=== PATIENT | female | born 1950 | race Caucasian/White ===

== ENCOUNTER 2017-06-07 16:31 | Emergency (ER) | payer OTHER, MEDICARE, SELFPAY ==
[2017-06-07 16:32] VITALS: BP 131/57; PULSE 66; RESP 16; TEMP 36.7; O2SAT 98; BMI 56.9
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
--- NOTE | 2017-06-07 16:33 | EKG12_ITS ---
Test Reason : A/A Blood Pressure : / mmHG Vent. Rate : 103 BPM Atrial Rate : 104 BPM P-R Int : 000 ms QRS Dur : 080 ms QT Int : 346 ms P-R-T Axes : 000 041 063 degrees QTc Int : 453 ms Atrial fibrillation Abnormal ECG Confirmed by RANJAN OLIVIA MD ([id number]), editor dictionary RUSS ORTIZ ([id number]) on 06/10/2017 2:47:15 PM Referred By: RSOALIA Confirmed By:RANJAN OLIVIA MD
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
[2017-06-07] MEDS: Ondansetron 4 MG/2 ML Vial IV ×2 (17:23→17:50)
[2017-06-07 17:27] LABS: Absolute Lymphocyte Count 2.86 X10^3/ul (0.83-4.51); Absolute Neutrophil Count 15.5 X10^3/uL (2.0-7.7); Basophil# 0.02 X10^3/uL; Basophil% 0.1 % (0-1); Eosinophil# 0.08 X10^3/uL; Eosinophils% 0.4 % (0-5); Hematocrit 35.4 % (37-47); Hemoglobin 11.3 g/dl (12.0-15.0); Lymphocyte # 2.86 X10^3/ul (4.0); Lymphocyte % 13.6 % (19-41); Mean Corp Hgb Conc 31.9 g/gl (32-36); Mean Corpuscular Hgb 27.2 pg (27.0-32.0); Mean Corpuscular Volume 85.3 fL (81-99); Mean Platelet Vol. 12.2 fl (6.2-12.0); Monocyte# 2.56 X10^3/uL; Monocyte% 12.1 % (0-10); Neutrophil # 15.49 X10^3/uL (2.7-7.7); Neutrophil % 73.4 % (47-70); Platelet Count 226 K/mm3 (150-450); RBC Distribution Width SD 46.6 fl (35.1-43.9); Red Blood Count 4.15 M/mm3 (4.2-5.4); White Blood Count 21.1 K/mm3 (4.4-11.0)
[2017-06-07 17:32] LABS: Prothrombin Time (Protime)PT. 31.7 SECONDS (11.7-14.9)
[2017-06-07 17:33] LABS: Differential Indicated SCAN CRITERIA MET; POSITIVE COUNT NO; POSITIVE DIFFERENTIAL YES; POSITIVE MORPHOLOGY NO; Partial Thromboplast Time 44.2 Seconds (24.1-36.2)
[2017-06-07 17:37] LABS: ALB/GLOB Ratio 0.9 RATIO (0.9-2.4); AST(SGOT) 38 U/L (15-37); Alanine Aminotransfer ALT/SGPT 46 U/L (13-56); Albumin, Serum 3.2 g/dL (3.2-5.0); Alkaline Phosphatase 98 U/L (45-117); Anion Gap 7 (5-15); BUN 16 mg/dL (7-18); BUN/Creat Ratio 16.2 RATIO (10-20); Calcium,Total 8.4 mg/dL (8.5-10.1); Chloride 102 mmol/L (98-107); Creatinine, Serum 0.98 mg/dL (0.55-1.02); EST Glomerular Filtration Rate 60 mL/min (>60); Est Glom Filt Rate - Afr Amer 73 mL/min (>60); Globulin 3.4 g/dL (2.2-4.2); Glucose 176 mg/dL (74-106); Potassium 4.3 mmol/L (3.5-5.1); Protein, Total 6.6 g/dL (6.4-8.2); Sodium Level 139 mmol/L (136-145)
--- NOTE | 2017-06-07 17:45 | ED.RN ---
THIS NURSE CALLED DOWN TO CT TO LOOK AT THE PT. UPON THIS NURSE ARRIVAL, PT SITTING UP, HUYNH COLORING TO FACE AND CHEST, PT C/O FEELING NAUSEATED. BP CYCLING. THIS NURSE SPOKE WITH DR LINDSEY ABOUT THE SAME. ORDER FOR ZOFRAN OBTAINED AND GIVEN IN CT
[2017-06-07 17:50] VITALS: BP 92/55
--- NOTE | 2017-06-07 17:52 | NURSING ---
CALLING [facility] FOR TRANSFER.
[2017-06-07 17:53] LABS: Platelet Estimate ADEQUATE (ADEQ); Red Cell Morphology NORM C+C NORMAL (NORM C&C)
[2017-06-07 18:11] VITALS: BP 99/60; PULSE 121; RESP 20; O2SAT 99
--- NOTE | 2017-06-07 18:11 | NURSING ---
[address] [facility] COMING
[2017-06-07] MEDS: Phytonadione 1 MG/0.5 ML Syringe 10 MG IV (18:21)
[2017-06-08 14:24] LABS: Pathologist Review Reviewed
== END 2017-06-07 18:53 | disposition home or self-care (01) ==
PROVIDERS: Emergency Provider Emergency Medicine; Family Provider Family Medicine; PCP Family Medicine
DX: S20.211A Contusion of right front wall of thorax, initial encounter (principal); S39.91XA Unspecified injury of abdomen, initial encounter; R11.0 Nausea; Z79.01 Long term (current) use of anticoagulants; E66.9 Obesity, unspecified; I48.91 Unspecified atrial fibrillation; V43.52XA Car driver injured in collision with other type car in traffic accident, initial encounter; Y93.I9 Activity, other involving external motion; Y92.410 Unspecified street and highway as the place of occurrence of the external cause; Y99.8 Other external cause status
CPT/HCPCS: 70450; 71045; 72125; 73130; 80053; 85025; 85610; 85730; 86850; 86900; 93005; 96365; 96368; 96375; 96376; 99285; C9132; J7050; A4216; J2405; J3430; J3490

== ENCOUNTER 2022-01-18 21:16 | Inpatient (IN) | payer MEDICARE, MEDICAID, SELFPAY ==
[2022-01-18 21:17] VITALS: BP 158/83; PULSE 131; RESP 22; RESP 24; TEMP 36.6; O2SAT 79; O2SAT 96; BMI 52.4
[2022-01-18 21:29] VITALS: O2SAT 96
--- NOTE | 2022-01-18 21:39 | EKG12_ITS ---
Test Reason : SOB Blood Pressure : / mmHG Vent. Rate : 115 BPM Atrial Rate : 000 BPM P-R Int : 000 ms QRS Dur : 082 ms QT Int : 266 ms P-R-T Axes : 000 068 -23 degrees QTc Int : 367 ms Atrial fibrillation with rapid ventricular response Abnormal QRS-T angle, consider primary T wave abnormality Abnormal ECG Confirmed by CORWIN POLANCO, RANJAN ([id number]), assignment editor KRISSY MORALES ([id number]) on 01/21/2022 11:34:45 AM Referred By: ANUP Confirmed By:RANJAN OLIVIA MD
[2022-01-18 21:43] VITALS: O2SAT 97
[2022-01-18] MEDS: Albuterol 2.5 MG/3 ML VIAL.NEB. INHALATION ×3 (21:58)
[2022-01-18 21:59] VITALS: PULSE 123; RESP 20
[2022-01-18 22:03] LABS: Absolute Lymphocyte Count 1.37 X10^3/uL (0.83-4.51); Absolute Neutrophil Count 9.6 X10^3/uL (2.0-7.7); Basophil# 0.04 X10^3/uL; Basophil% 0.3 % (0-1); Eosinophil# 0.04 X10^3/uL; Eosinophils% 0.3 % (0-5); Hematocrit 45.2 % (37-47); Hemoglobin 14.3 g/dL (12.0-15.0); Lymphocyte # 1.37 X10^3/ul (0.83-4.51); Lymphocyte % 9.7 % (19-41); Mean Corp Hgb Conc 31.6 g/dL (32-36); Mean Corpuscular Hgb 27.8 pg (27.0-32.0); Mean Corpuscular Volume 87.8 fL (81-99); Mean Platelet Vol. 12.6 fl (6.2-12.0); Monocyte# 3.02 X10^3/uL; Monocyte% 21.4 % (0-10); NRBC Flagged by Analyzer 0 % (0-5); Neutrophil # 9.57 X10^3/uL (2.7-7.7); Neutrophil % 67.6 % (47-70); POSITIVE DIFFERENTIAL YES; Platelet Count 154 K/mm3 (150-450); RBC Distribution Width CV 14.4 % (11.6-14.6); RBC Distribution Width SD 46.1 fl (35.1-43.9); Red Blood Count 5.15 M/mm3 (4.2-5.4); White Blood Count 14.1 K/mm3 (4.4-11.0)
[2022-01-18 22:05] LABS: Differential Indicated SCAN CRITERIA MET
[2022-01-18 22:20] LABS: AST(SGOT) 12 U/L (15-37); Alanine Aminotransfer ALT/SGPT 23 U/L (13-56); Albumin, Serum 4.3 g/dL (3.2-5.0); Alkaline Phosphatase 88 U/L (45-117); Anion Gap 9 (5-15); BUN 21 mg/dL (7-18); BUN/Creat Ratio 21.3 RATIO (10-20); Calcium,Total 9.9 mg/dL (8.5-10.1); Chloride 100 mmol/L (98-107); Creatinine, Serum 0.99 mg/dL (0.55-1.02); EST Glomerular Filtration Rate 59 mL/min (>60); Est Glom Filt Rate - Afr Amer 71 mL/min (>60); Estimated Creatinine Clearance 98.44 ml/min; Globulin 4.1 g/dL (2.2-4.2); Glucose 172 mg/dL (74-106); Potassium 4.3 mmol/L (3.5-5.1); Protein, Total 8.4 g/dL (6.4-8.2); Sodium Level 140 mmol/L (136-145)
[2022-01-18 22:26] LABS: Allen Test Positive; Base Excess 5 mmol/L (-2 to +2); Bicarbonate 31.1 mmol/L (22-26); Blood Gas Specimen Type ART; O2 Delivery Device Cannula; PO2 59 mmHG (75-100); SITE R Radial; SO2 87 % (95-99); Total Carbon Dioxide 33 mmol/L; pCO2 58.6 mmHg (35-45); pH 7.33 (7.35-7.45)
[2022-01-18 22:26] LABS: Lactic Acid 1.5 mmol/L (0.4-1.9)
[2022-01-18 22:28] LABS: Differential Comment SCANNED
--- NOTE | 2022-01-18 22:54 | EDS_ITS ---
HPI HPI - URI History of Present Illness Chief Complaint: Shortness of Breath Detail of Chief Complaint: Shortness of breath, productive cough, wheezing Informant: patient Onset/Context/Timing Onset: Today Context: Sudden Onset Timing: Continuous Quality: Congestion, rhinorrhea, productive cough, wheezing and dyspnea Location: Upper respiratory Current Severity: Moderate Maximum Severity: Severe Worsened by: Not Worsened By Swallowing, Eating Solids or Drinking Liquids Relieved by: Not Relieved By Tylenol or NSAIDs Associated Symptoms Associated Symptoms: Positive for Nasal Congestion, Shortness of Breath and Productive Cough; Negative for Headache, Sinus Pressure, Myalgias, Nausea, Vomiting, Diarrhea, Chest Pain, Nonproductive cough or Hemoptysis Narrative Narrative: Patient is a 71-year-old woman with history of atrial fibrillation, chronic congestive heart failure, obstructive sleep apnea, hypertension, dyslipidemia and bilateral lymphedema who presents with upper respiratory symptoms started today. She was seen at her doctor yesterday and had flu vaccine and shingles vaccine. She states she was not ill when she was vaccinated. There have been family members have been ill. She denies headache. She denies visual, ocular auditory symptoms. She denies neck pain or stiffness. She denies chest disco mfort. She denies history of PE or DVT. She is on long-term anticoagulant, Eliquis for atrial fibrillation. She denies abdominal pain. She denies nausea, vomiting diarrhea. She denies melena or hematochezia. She does endorse increased shortness of breath with walking. She is not normally on oxygen. Prior similar symptoms: No Recent Illness/Hospitalization: No ROS ROS ED Constitutional Constitutional ED: Denies chills, fever(s), subjective, sweats or weight loss Eyes Eyes: Denies blurry vision, change in vision or diplopia ENT ENT ED: Reports rhinorrhea; Denies ear pain or sore throat Cardiovascular Cardiovascular: Denies chest pain, orthopnea, palpitations or paroxysmal nocturn al dyspnea Respiratory/Chest Respiratory/Chest: Reports cough, dyspnea, dyspnea on exertion and sputum; Denies orthopnea or paroxysmal nocturnal dyspnea Gastrointestinal Gastrointestinal: Denies abdominal pain, constipation, diarrhea, melena, nausea or vomiting Genitourinary Genitourinary ED: Denies dysuria, hematuria or urinary frequency Musculoskeletal Musculoskeletal: Denies arthralgias, back pain, myalgias or neck pain Integumentary Denies abscess, Abrasions or rash Neurologic Neurologic: Denies headache(s), paresthesias or weakness Endocrine Endocrinology: Denies cold intolerance, heat intolerance or polydipsia Hematologic/Lymphatic Hematologic/Lymphatic: Denies easy bleeding, easy bruising or lymphadenopathy PFSH PFSH Medical History no medical history no medical history (Documented in the HPI narrative) Home Medications furosemide 40 mg tablet 40 mg PO BID 10/27/13 [History Last Taken 07/14/16] sertraline 50 mg tablet 25 mg PO QHS 10/27/13 [History Last Taken 07/13/16] digoxin 125 mcg (0.125 mg) tablet (Digox) 125 mcg PO DAILY 01/24/16 [History Last Taken 07/14/16] lisinopril 10 mg tablet 20 mg PO DAILY 01/24/16 [History Last Taken 07/14/16] metoprolol tartrate 50 mg tablet 100 mg PO BID 01/24/16 [History Last Taken 07/14/16] potassium chloride 20 mEq tablet,extended release(part/cryst) (Klor-Con M) 20 meq PO DAILY 01/24/16 [History Last Taken 07/14/16] Beclomethasone Diprop Inhaler [Qvar 80 Mcg Inhaler] 2 puff IH BID 07/14/16 [History Last Taken 07/13/16] atorvastatin 10 mg tablet 10 mg PO QHS 07/14/16 [History Last Taken 07/13/16] apixaban 5 mg tablet (Eliquis) 5 mg PO BID 01/18/22 [History Last Taken Unknown] Allergy/AdvReac Type Severity Reaction Status Date / Time Tetanus Vaccines and Toxoid Allergy Unknown Verified 06/07/17 16:42 [Tetanus Vaccines & Toxoid] Social History (Updated 01/18/22 @ 22:[address] David Plasencia MD) household members: none Smoking Status: Never smoker substance use type: does not use EXAM Physical Exam Const Vital Signs: 01/18/22 21:17 01/18/22 21:17 01/18/22 21:29 Temperature 97.8 F 97.8 F Temperature Source Oral Temporal Pulse Rate 131 H 131 H Respiratory Rate 24 H 22 H Respiratory Effort Short of Breath Respiratory Depth Shallow Respiratory Pattern Tachypnea Blood Pressure 158/83 H 158/83 H Blood Pressure Mean 108 108 Pulse Ox 79 96 Oxygen Delivery Method Room Air Nasal Cannula Nasal Cannula Oxygen Flow Rate (L/min) 3 2 01/18/22 21:43 01/18/22 21:59 Temperature Temperature Source Pulse Rate 123 H Respiratory Rate 20 H Respiratory Effort Respiratory Depth Respiratory Pattern Tachypnea Blood Pressure Blood Pressure Mean Pulse Ox 97 Oxygen Delivery Method Nasal Cannula Oxygen Flow Rate (L/min) 2 Positive well nourished, well developed and obese Constitutional Narrative: Patient has conversational dyspnea. General Appearance ED: well developed; Negative for cyanotic, diaphoretic, NAD or pallor Nutritional Appearance: obese HEENT Reports moist mucous membranes normocephalic Face and Sinus: Negative for sinus tenderness or maxillary instability Throat: posterior oropharynx normal Eyes PERRL and EOMs intact bilaterally General Eye ED: Negative for pale conjunctiva or scleral icterus Neck no lymphadenopathy, supple, no meningeal signs and no JVD Neck Narrative: Trachea is midline. There is no in expiratory stridor. Resp No normal respiratory effort and No clear to auscultation bilaterally Resp Narrative: Patient has prolonged expiratory phase. Auscultation: wheezes expiratory wheezes and throughout Cardio S1 normal heart sound, S2 normal heart sound and no murmurs Rate: tachycardic GI non-tender, non-distended and no masses Auscultation: normoactive bowel sounds Palpation: soft Back/Spine no CVA tenderness and normal ROM Extremity Negative for normal to inspection Extremity Narrative: There is mild edema of the lower extremities. There is evidence of venous stasis dermatitis this. General Extremety ED: Negative for cyanosis General Extremity: Negative for cyanosis Neuro oriented x3, CN's II-XII intact bilaterally and no sensory deficits noted Sensorium / Orientation: alert Psych mental status grossly normal Skin General Skin Exam: Negative for jaundice or pallor Lesions: no lesions MDM MDM MDM Narrative Medical decision making narrative: She presents with infectious respiratory symptoms. Pulse ox upon arrival was 79% on room air. She is presently 97% on oxygen. Concern patient has pneumonia versus bronchitis with bronchospasm. Work-up was undertaken to evaluate for sepsis. EKG was obtained since she was hypoxic to rule out cardiac ischemia. Since patient was wheezing she was treated with albuterol. Lab Data Attestation: I reviewed the patient's lab results. Lab results narrative: White count is elevated 14.1 thousand with out a shift. Comprehensive metabolic panel is remarkable for slight elevation of BUN and glucose of 21 and 172 respectively. Lactate ABG was obtained. Respiratory therapist concerned this may represent a arterial and venous mixture. pH is 7.33. PCO2 is 58.6. PO2 is 58.8 with a saturation of 87%, which does not correlate with the pulse ox. The pulse ox has a good waveform. Suspect this is a mixed gas. Patient's pH is acceptable. She probably has chronic CO2 retention. There is no evidence of acute CO2 retention. Labs: Laboratory Results - last 24 hr 01/18/22 01/18/22 01/18/22 21:55 21:55 21:55 WBC 14.1 H RBC 5.15 Hgb 14.3 Hct 45.2 MCV 87.8 MCH 27.8 MCHC 31.6 L RDW Std Deviation 46.1 H RDW Coeff of Giles 14.4 Plt Count 154 MPV 12.6 H Immature Gran % (Auto) 0.700 Neut % (Auto) 67.6 Lymph % (Auto) 9.7 L Smyth % (Auto) 21.4 H Eos % (Auto) 0.3 Baso % (Auto) 0.3 Absolute Neuts (auto) 9.6 H Absolute Lymphs (auto) 1.37 Nucleated RBC % 0 Differential Comment SCANNED Diff Path Review May foll Sodium 140 Potassium 4.3 Chloride 100 Carbon Dioxide 31.0 Anion Gap 9 BUN 21 H Creatinine 0.99 Estim Creat Clear Calc 98.44 Est GFR (MDRD) Af Amer 71 Est GFR (MDRD) Non-Af 59 L BUN/Creatinine Ratio 21.3 H Glucose 172 H Lactic Acid 1.5 Calcium 9.9 Total Bilirubin 1.10 H AST 12 L ALT 23 Alkaline Phosphatase 88 Total Protein 8.4 H Albumin 4.3 Globulin 4.1 Albumin/Globulin Ratio 1.0 ABG Data ABG results: ABG 01/18/22 22:15 Specimen Type ART Sample Site R Radial pH 7.33 L Bicarbonate Actual 31.1 H Total CO2 33 Base Excess 5 H O2 Saturation 87 L ABG pCO2 58.6 H ABG pO2 59 L Lito Test Positive O2 Delivery Device Cannula Liter Flow 3.0 EKG Initial EKG: Attestation: I personally reviewed and interpreted this EKG as follows: Interpretation: Atrial Fibrillation (Ventricular rate is 115. QS duration 82 ms. QT durations 266 ms. [employer] is normal. There is artifact noted. There is no acute ischemia noted.) Discharge Plan Triage Chief Complaint: Shortness of Breath ED Provider: David Plasencia Dx/Rx/DC Orders Prescriptions: No Action furosemide 40 MG tablet 40 mg PO BID Label Comments: Water pill sertraline 50 MG tablet 25 mg PO QHS Label Comments: Anti-depressant/anxiety potassium chloride [Klor-Con M20] 20 MEQ tablet 20 meq PO DAILY Label Comments: SUPPLEMENT lisinopril 10 MG tablet 20 mg PO DAILY Label Comments: BLOOD PRESSURE/HEART digoxin [Digox] 125 MCG tablet 125 mcg PO DAILY Label Comments: HEART metoprolol tartrate 50 MG tablet 100 mg PO BID Label Comments: Heart rate/blood pressure atorvastatin 10 MG tablet 10 mg PO QHS Label Comments: CHOLESTEROL Beclomethasone Diprop Inhaler [Qvar 80 Mcg Inhaler] 1 PUFF inhaler 2 puff IH BID Label Comments: BREATHING Eliquis 5 mg tablet 5 mg PO BID Primary Care Provider: Kory Ibarra Referrals: Kory Ibarra DO [Primary Care Provider] -
--- NOTE | 2022-01-18 23:10 | RAD_ITS ---
STUDY: X-RAY CHEST REASON FOR EXAM: Female, 71 years old. Productive cough TECHNIQUE: AP portable. 11:04 PM. COMPARISON: 06/07/2017. FINDINGS: LUNGS: No consolidation. No pneumothorax. MEDIASTINUM: Unremarkable. CARDIAC SILHOUETTE: Enlarged. Stable size. BONES AND SOFT TISSUES: No acute abnormalities. RAD/Chest 1 View (Portable) IMPRESSION: Stable cardiomegaly. No infiltrates. Electronically Signed: Isis Mcdonald MD at 23:24 EST ,
[2022-01-18 23:31] VITALS: BP 139/64; PULSE 114; RESP 22; TEMP 36.6; O2SAT 96
[2022-01-18] MEDS: MethylPREDNISolone 125 MG/2 ML Vial 60 MG IV (23:32)
--- NOTE | 2022-01-18 23:33 | HP.PCM.HOS_ITS ---
HPI - General General Date of Admission: 01/18/22 Date of Service: 01/18/22 Chief Complaint: Shortness of breath HPI Narrative GUNNER BAKER, is a 71 F who presented to the emergency department [facility] on 01/18/2022 complaining of shortness of breath. She states she was really feeling fine yesterday she got her shingles and flu vaccine but this morning she started to feel poorly. She has trouble describing how she fe lt but it sounds like she had just generalized weakness and fatigue. She began coughing and developing some shortness of breath. Her daughter is a NICU nurse here in [place] and recommended she come to the emergency department for further evaluation. Evidently, her family has been ill with respiratory illnesses over the past couple weeks and she had been doing well up until today. She has no k nown history of COPD or tobacco abuse however she has long history of secondhand smoke exposure in her parents and her . She reports small amount of nasal congestion but denies any headache, nausea and vomiting, constipation diarrhea, or tingling numbness/weakness. She states she is coughing intermittently and producing some sputum. She indicates she has chronic atrial fibrillation but when she gets ill she tends to have rapid rates as she is having at this time. She states typically she is well rate controlled with her current medication regimen. Vitals on presentation demonstrated a temperature of 97.8, heart rate 131, blood pressure 158/83, respiratory rate anywhere from 20-24, and initial oxygen saturations were 79% on room air. Sats improved to 96 to 97% on 2 L nasal katherin paramjit. CBC showed a leukocytosis with a white count of 14.1 however her differential is predominantly monocytes at 21.4%. An ABG was performed however it appears to be a mixed gas. Her chemistry panel was overall unremarkable other than hyperglycemia with a blood glucose level of 172. Chest x-ray is unremarkable for any acute findings. EKG shows A. fib with RVR, intervals are normal, no ST-T wave changes consistent with acute ischemia. In the emergency department she was treated with steroids and recommendation for admission was made. [facility] Medical History Anticoagulant long-term use Asthma Congestive heart failure (CHF) Depression Dyslipidemia HTN (hypertension) Morbid obesity with body mass index of 50.0-59.9 in adult Obstructive sleep apnea Paroxysmal atrial fibrillation Medical History no medical history Home Medications furosemide 40 mg tablet 40 mg PO BID 10/27/13 [History Last Taken 07/14/16] sertraline 50 mg tablet 25 mg PO QHS 10/27/13 [History Last Taken 07/13/16] digoxin 125 mcg (0.125 mg) tablet (Digox) 125 mcg PO DAILY 01/24/16 [History Last Taken 07/14/16] lisinopril 10 mg tablet 20 mg PO DAILY 01/24/16 [History Last Taken 07/14/16] metoprolol tartrate 50 mg tablet 100 mg PO BID 01/24/16 [History Last Taken 07/14/16] potassium chloride 20 mEq tablet,extended release(part/cryst) (Klor-Con M) 20 meq PO DAILY 01/24/16 [History Last Taken 07/14/16] Beclomethasone Diprop Inhaler [Qvar 80 Mcg Inhaler] 2 puff IH BID 07/14/16 [History Last Taken 07/13/16] atorvastatin 10 mg tablet 10 mg PO QHS 07/14/16 [History Last Taken 07/13/16] apixaban 5 mg tablet (Eliquis) 5 mg PO BID 01/18/22 [History Last Taken Unknown] Allergy/AdvReac Type Severity Reaction Status Date / Time Tetanus Vaccines and Toxoid Allergy Unknown Verified 06/07/17 16:42 [Tetanus Vaccines & Toxoid] Family History no significant family his no significant family history Surgical History H/O oophorectomy History of appendectomy Social History (Updated 01/18/22 @ 23:[address] Jemima Poe DO) household members: none Smoking Status: Never smoker alcohol intake: never substance use type: does not use ROS Constitutional Constitutional: Reports fatigue, malaise and weakness; Denies anorexia, change in weight, chills, fever(s), night sweats or other Eyes Eyes: Denies blurry vision, change in eye color, change in vision, discharge from eye(s), double vision, erythema, eye pain, loss of vision or other ENT HEENT: Reports nasal congestion and nasal discharge; Denies abnormal hearing, dysphagia, ear pain, epistaxis, headache(s), hearing loss, post nasal drip, sinus pressure, sore throat or other Cardiovascular Cardiovascular: Reports dyspnea on exertion and rapid heart rate; Denies chest pain, claudication, edema, lightheadedness, orthopnea, palpitations, paroxysmal nocturnal dyspnea, syncope or other Respiratory/Chest Respiratory/Chest: Reports cough, dyspnea, productive cough, shortness of breath at rest and shortness of breath with exertion; Denies excessive phlegm production, hemoptysis, wheezing or other Gastrointestinal Gastrointestinal: Denies abdominal pain, coffee ground emesis, constipation, diarrhea, dyspepsia, hematemesis, hematochezia, loose stools, melena, nausea, vomiting or other Genitourinary Genitourinary: Denies burning urination, difficulty urinating, dysuria, hematuria, nocturia, urinary frequency, urinary hesitancy, urinary incontinence, urinary urgency or other Musculoskeletal Musculoskeletal: Denies arthralgias, back pain, joint pain, joint stiffness, joint swelling, myalgias, neck pain or other Neurologic Neurologic: Denies abnormal gait, abnormal speech, confusion, disequilibrium, dizziness, focal weakness, headache(s), numbness, paresthesias, seizure-like activity, seizures, syncope, tingling, tremor(s) or other Psychiatric Psychiatric: Reports depression Endocrine Endocrinology: Denies change in body appearance, cold intolerance, excessive sweating, heat intolerance, polydipsia, polyuria or other Hematologic/Lymphatic Hematologic/Lymphatic: Denies anemia, easy bleeding, easy bruising, lymphadenopathy or other Allergic/Immunologic Allergic/Immunologic: Denies rhinitis, hives, eczemia, asthma or other Vital Signs Vital Signs Vital Signs: 01/18/22 21:17 01/18/22 21:17 01/18/22 21:29 Temperature 97.8 F 97.8 F Temperature Source Oral Temporal Pulse Rate 131 H 131 H Respiratory Rate 24 H 22 H Respiratory Effort Short of Breath Respiratory Depth Shallow Respiratory Pattern Tachypnea Blood Pressure 158/83 H 158/83 H Blood Pressure Mean 108 108 Pulse Ox 79 96 Oxygen Delivery Method Room Air Nasal Cannula Nasal Cannula Oxygen Flow Rate (L/min) 3 2 01/18/22 21:43 01/18/22 21:59 01/18/22 23:31 Temperature 97.9 F Temperature Source Temporal Pulse Rate 123 H 114 H Respiratory Rate 20 H 22 H Respiratory Effort Respiratory Depth Respiratory Pattern Tachypnea Blood Pressure 139/64 H Blood Pressure Mean 89 Pulse Ox 97 96 Oxygen Delivery Method Nasal Cannula Nasal Cannula Oxygen Flow Rate (L/min) 2 2 Weight Weight: 117.934 kg Body Mass Index (BMI) 52.4 Physical Exam Const alert and oriented x3 Constitutional Narrative: Older morbidly obese white female sitting up on the edge of the bed, appears comfortable but ill she does not appear to be toxic, daughter at bedside General Appearance: cooperative HEENT normocephalic, head/scalp atraumatic, hearing grossly normal bilaterally and moist oral mucous membranes HEENT Narrative: Dentition is poor, Mallampati is 3, no thrush Eyes PERRL, EOMs intact bilaterally and conjunctivae normal Eyes Narrative: No scleral icterus Neck no lymphadenopathy and supple Neck Narrative: Trachea midline Resp no retractions and no use of accessory muscles Resp Narrative: Used end expiratory wheezes, slight tachypnea, no signs of respiratory extremis Auscultation: wheezes Cardio S1 normal heart sound, S2 normal heart sound, no murmurs, no rub, no gallops and no clicks; Negative for regular rate or regular rhythm Cardio Narrative: Tachycardia with irregularly irregular rhythm GI normal to inspection, nondistended, normoactive bowel sounds, soft to palpation and non-tender Extremity Extremity Narrative: Trace bilateral lower extremity edema, no cyanosis or clubbing Skin no rashes or lesions noted, no wounds, skin turgor normal, no jaundice, no petechiae and no mottling Skin Narrative: Toenails with onychomycosis Neuro oriented x3, CN's II-XII intact bilaterally, moves all extremities and no focal motor deficits Neuro Narrative: No sensory deficits Speech: speech normal Psych affect normal Psych Narrative: Very pleasant Results Lab / Micro Data Result Diagrams: 01/18/22 21:55 01/18/22 21:55 Labs: Laboratory Results - last 24 hr 01/18/22 21:55: WBC 14.1 H, RBC 5.15, Hgb 14.3, Hct 45.2, MCV 87.8, MCH 27.8, MCHC 31.6 L, RDW Std Deviation 46.1 H, RDW Coeff of Giles 14.4, Plt Count 154, MPV 12.6 H, Immature Gran % (Auto) 0.700, Neut % (Auto) 67.6, Lymph % (Auto) 9.7 L, [place] % (Auto) 21.4 H, Eos % (Auto) 0.3, Baso % (Auto) 0.3, Absolute Neuts (auto) 9.6 H, Absolute Lymphs (auto) 1.37, Nucleated RBC % 0, Differential Comment SCANNED, Diff Path Review July foll 01/18/22 21:55: Sodium 140, Potassium 4.3, Chloride 100, Carbon Dioxide 31.0, Anion Gap 9, BUN 21 H, Creatinine 0.99, Estim Creat Clear Calc 98.44, Est GFR (MDRD) Af Amer 71, Est GFR (MDRD) Non-Af 59 L, BUN/Creatinine Ratio 21.3 H, Glucose 172 H, Calcium 9.9, Total Bilirubin 1.10 H, AST 12 L, ALT 23, Alkaline Phosphatase 88, Total Protein 8.4 H, Albumin 4.3, Globulin 4.1, Albumin/Globulin Ratio 1.0 01/18/22 21:55: Lactic Acid 1.5 Micro: Microbiology 01/18/22 21:46 Nasal Secretion SARS-CoV-2 & FLU Antigen (Rapid) - Final ABG Data ABG results: ABG 01/18/22 22:15 Specimen Type ART Sample Site R Radial pH 7.33 L Bicarbonate Actual 31.1 H Total CO2 33 Base Excess 5 H O2 Saturation 87 L ABG pCO2 58.6 H ABG pO2 59 L Lito Test Positive O2 Delivery Device Cannula Liter Flow 3.0 Radiology Impression Chest X-Ray 01/18/22 23:10 IMPRESSION: Stable cardiomegaly. No infiltrates. Electronically Signed: Isis Mcdonald MD at 23:24 EST , Assessment & Plan Assessment/Plan (1) Acute hyperglycemia: (2) Acute bronchospasm: (3) Acute respiratory failure with hypoxia: (4) Atrial fibrillation with RVR: PLAN: Plan Acute hypoxic respiratory failure secondary to suspected viral pneumonia -Patient with tachypnea, tachycardia, hypoxia on room air requiring 3 L, and wheezing with significant subjective shortness of breath -COVID and flu antigens are negative -Patient every 9% on room air at presentation and now satting at 95 to 96% on 2 L supplemental oxygen -Respiratory viral panel is pending -Start Solu-Medrol 40 every 8 -Aggressive pulmonary toilet with scheduled DuoNebs and as needed albuterol -I-S -Acapella -Guaifenesin 1200 twice daily -Highly suspect this is viral as patient has a significant monocytosis with regards to her leukocytosis and sick exposure to family members last week -Patient with long history of secondhand smoke exposure in both of her parents and her --> no personal tobacco abuse Chronic A. fib with current RVR -Patient states she has persistent atrial fibrillation and is typically well managed with digoxin, metoprolol -Continue apixaban -Likely in RVR secondary to respiratory distress -We will monitor on telemetry -Heart rate seems to be improving and was in the low 100s at the time of my evaluation Hyperglycemia -Patient without diagnosis of diabetes -Blood sugar on presentation was 179 -May be stress response -We will check hemoglobin A1c -[facility] -Acc[facility] Hypertension -Continue home lisinopril -Continue home metoprolol -Continue home Lasix Hyperlipidemia -Continue home atorvastatin CHRISTIANNE -Continue home CPAP will utilize 8 cm of water as patient is unclear what she typically is on at home -We will try to clarify Morbid obesity -Recommend weight loss -BMI is 52.5 -Complicates treatment, prognosis, outcomes DVT prophylaxis -Continue home apixaban CODE STATUS -Full code as per discussion with the family and the patient in the emergency department prior to admission Charges/Coding Visit Charges Inpatient E&M: 28405 Init Hosp L3
[2022-01-19] VITALS (21 sets, daily range): BP systolic 129–172; BP diastolic 64–94; PULSE 80–155; RESP 18–28; TEMP 36.1–37.2; O2SAT 94–96; BMI 51.2
[2022-01-19 00:15] LABS: Hemoglobin A1c 5.9 % (3.8-5.6)
[2022-01-19] MEDS: Albuterol 2.5 MG/3 ML VIAL.NEB. INHALATION (00:32)
--- NOTE | 2022-01-19 00:35 | CPS ---
[0032] Pt. states that she uses CPAP at home. I asked her if she'd like for us to provide her with CPAP with our equipment, but she politely refused. She stated that she's fine with wearing oxygen while she sleeps tonight. I informed pt. that it would be a good idea if she was able to have someone bring in her home unit for tomorrow night.
[2022-01-19 01:11] LABS: Bedside Glucose 171 mg/dL (74-106)
[2022-01-19] MEDS: Benzonatate 100 MG Capsule 200 MG PO ×3 (02:35→16:31)
[2022-01-19] MEDS: Insulin Lispro 100 UNIT/ML INSULN.PEN SC ×3 (06:31→16:25)
[2022-01-19 07:15] LABS: Bedside Glucose 189 mg/dL (74-106)
[2022-01-19] MEDS: Ipratropium/Albuterol Sulfate 3 ML AMPUL.NEB INHALATION ×5 (07:24→22:30)
[2022-01-19 07:35] LABS: Absolute Lymphocyte Count 0.71 X10^3/uL (0.83-4.51); Absolute Neutrophil Count 9.9 X10^3/uL (2.0-7.7); Basophil# 0.01 X10^3/uL; Basophil% 0.1 % (0-1); Hematocrit 43.2 % (37-47); Hemoglobin 13.4 g/dL (12.0-15.0); Lymphocyte # 0.71 X10^3/ul (0.83-4.51); Lymphocyte % 6.3 % (19-41); Mean Corpuscular Hgb 27.5 pg (27.0-32.0); Mean Corpuscular Volume 88.5 fL (81-99); Mean Platelet Vol. 12.5 fl (6.2-12.0); Monocyte# 0.39 X10^3/uL; Monocyte% 3.5 % (0-10); NRBC Flagged by Analyzer 0 % (0-5); Neutrophil # 9.86 X10^3/uL (2.7-7.7); Platelet Count 144 K/mm3 (150-450); RBC Distribution Width CV 14.4 % (11.6-14.6); RBC Distribution Width SD 46.9 fl (35.1-43.9); Red Blood Count 4.88 M/mm3 (4.2-5.4); White Blood Count 11.2 K/mm3 (4.4-11.0)
[2022-01-19 08:09] LABS: Anion Gap 4 (5-15); BUN 21 mg/dL (7-18); BUN/Creat Ratio 23.8 RATIO (10-20); Calcium,Total 10.2 mg/dL (8.5-10.1); Chloride 102 mmol/L (98-107); Creatinine, Serum 0.88 mg/dL (0.55-1.02); EST Glomerular Filtration Rate 67 mL/min (>60); Est Glom Filt Rate - Afr Amer 81 mL/min (>60); Estimated Creatinine Clearance 109.87 ml/min; Glucose 192 mg/dL (74-106); Magnesium 2.5 mg/dL (1.6-2.6); Phosphorus 3.2 mg/dL (2.5-4.9); Potassium 4.5 mmol/L (3.5-5.1); Sodium Level 138 mmol/L (136-145); Thyroid Stim Hormone (TSH) 0.74 uIU/mL (0.358-3.74)
[2022-01-19] MEDS: guaiFENesin 1,200 MG Tablet 1200 MG PO ×2 (08:52→20:53)
[2022-01-19] MEDS: Furosemide 40 MG Tablet PO ×2 (08:53→20:53)
[2022-01-19] MEDS: Lisinopril 20 MG Tablet PO (08:53)
[2022-01-19] MEDS: Potassium Chloride Oral Tablet 20 MEQ PO (08:53)
[2022-01-19] MEDS: Digoxin 125 MCG Tablet PO (08:53)
[2022-01-19] MEDS: APIXABAN 5 MG TABLET PO ×2 (08:53→20:53)
[2022-01-19] MEDS: Metoprolol Tartrate 100 MG Tablet PO ×2 (08:53→19:40)
--- NOTE | 2022-01-19 10:20 | CASEMGMT ---
RN SOLEDAD Face to Face with patient for initial transition planning/care coordination assessment. RN CM introduced self and role at [facility]. Patient lying in bed, alert and oriented. Patient willing to participate in assessment and is able to answer all questions appropriately. Care providers, pharmacy, and demographics verified. Patient wishes to discharge home, denies need for home health at this time. Patient states she has no further needs or concerns at this time. CM to follow for discharge planning needs that may arise. 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 Insurance: [employer] Prescription Benefit: yes Living Will/HPOA: yes, daughter Rhiannon Young LNOK: daughter who is a nurse Living Arrangements: Patient lives with daughter in a single story home with 1 step and grab bar to enter the home. Patient states she is independent at home. Transportation: daughter DME/HHC: Patient has shower chair, grab bars, raised toilet, cpap, and pulse ox at home. Patient states that cpap is through [facility] who is her preferred DME, patient declines list of other DME agencies at this time. Will monitor for need for home oxygen at discharge. Disposition Plan: Patient to discharge home with family support and follow-up plans in place. Kami KRISHNA, RN, CM
[2022-01-19 11:25] LABS: Bedside Glucose 248 mg/dL (74-106)
[2022-01-19 12:38] LABS: Pathologist Review Reviewed
--- NOTE | 2022-01-19 12:56 | PN.HOSP_ITS ---
Subjective Subjective Patient seen and examined. He still feels short of breath. She says her family had bronchitis which is likely due to RSV. She is still wheezing. Review of systems otherwise negative. Objective Data Objective Data Vital Signs: Vital Signs Temp Pulse Resp BP Pulse Ox O2 Del Method O2 Flow Rate 97.2 F L 107 H 24 H 155/91 H 96 Room Air 2 01/19/22 10:57 01/19/22 11:37 01/19/22 11:37 01/19/22 10:57 01/19/22 10:57 01/19/22 10:57 01/19/22 08:42 Oxygen Flow Rate (L/min) 2 Oxygen Delivery Method Room Air Weight: 257 lb 15.053 oz Body Mass Index (BMI) 51.2 Intake & Output: Intake and Output for Last 24 Hours 01/18/22 01/18/22 01/19/22 00:59 23:59 23:59 Intake Total 300 / 300 Balance 300 / 300 Lab / Micro Data Result Diagrams: 01/19/22 07:12 01/19/22 07:12 Labs: Laboratory Results - last 24 hr 01/18/22 21:55: WBC 14.1 H, RBC 5.15, Hgb 14.3, Hct 45.2, MCV 87.8, MCH 27.8, MCHC 31.6 L, RDW Std Deviation 46.1 H, RDW Coeff of Giles 14.4, Plt Count 154, MPV 12.6 H, Immature Gran % (Auto) 0.700, Neut % (Auto) 67.6, Lymph % (Auto) 9.7 L, [place] % (Auto) 21.4 H, Eos % (Auto) 0.3, Baso % (Auto) 0.3, Absolute Neuts (auto) 9.6 H, Absolute Lymphs (auto) 1.37, Nucleated RBC % 0, Differential Comment SCANNED, Diff Path Review Reviewed 01/18/22 21:55: Sodium 140, Potassium 4.3, Chloride 100, Carbon Dioxide 31.0, Anion Gap 9, BUN 21 H, Creatinine 0.99, Estim Creat Clear Calc 98.44, Est GFR (MDRD) Af Amer 71, Est GFR (MDRD) Non-Af 59 L, BUN/Creatinine Ratio 21.3 H, Glucose 172 H, Calcium 9.9, Total Bilirubin 1.10 H, AST 12 L, ALT 23, Alkaline Phosphatase 88, Total Protein 8.4 H, Albumin 4.3, Globulin 4.1, Albumin/Globulin Ratio 1.0 01/18/22 21:55: Lactic Acid 1.5 01/18/22 21:55: Hemoglobin A1c 5.9 H 01/19/22 00:50: POC Glucose 171 H 01/19/22 06:11: POC Glucose 189 H 01/19/22 07:12: WBC 11.2 H, RBC 4.88, Hgb 13.4, Hct 43.2, MCV 88.5, MCH 27.5, MCHC 31.0 L, RDW Std Deviation 46.9 H, RDW Coeff of Giles 14.4, Plt Count 144 L, MPV 12.5 H, Immature Gran % (Auto) 2.100 H, Neut % (Auto) 88.0 H, Lymph % (Auto) 6.3 L, [place] % (Auto) 3.5, Eos % (Auto) 0.0, Baso % (Auto) 0.1, Absolute Neuts (auto) 9.9 H, Absolute Lymphs (auto) 0.71 L, Nucleated RBC % 0 01/19/22 07:12: Sodium 138, Potassium 4.5, Chloride 102, Carbon Dioxide 32.0, Anion Gap 4 L, BUN 21 H, Creatinine 0.88, Estim Creat Clear Calc 109.87, Est GFR (MDRD) Af Amer 81, Est GFR (MDRD) Non-Af 67, BUN/Creatinine Ratio 23.8 H, Glucose 192 H, Calcium 10.2 H, Phosphorus 3.2, Magnesium 2.5, TSH 0.74 01/19/22 10:59: POC Glucose 248 H Micro: Microbiology 01/19/22 07:45 Urine, Clean Catch Streptococcus pneumoniae Antigen (M - Final 01/19/22 07:45 Urine, Clean Catch Legionella Antigen - Final 01/18/22 21:46 Nasal Secretion SARS-CoV-2 & FLU Antigen (Rapid) - Final ABG Data ABG results: ABG 01/18/22 22:15 Specimen Type ART Sample Site R Radial pH 7.33 L Bicarbonate Actual 31.1 H Total CO2 33 Base Excess 5 H O2 Saturation 87 L ABG pCO2 58.6 H ABG pO2 59 L Lito Test Positive O2 Delivery Device Cannula Liter Flow 3.0 Radiography Diagnostic Testing: Radiology Impression Chest X-Ray 01/18/22 23:10 IMPRESSION: Stable cardiomegaly. No infiltrates. Electronically Signed: Isis Mcdonald MD at 23:24 EST , Physical Exam Const alert, oriented x3 and no apparent distress Constitutional Narrative: obese HEENT head/scalp atraumatic, moist oral mucous membranes and oropharynx normal Head and Scalp: normocephalic Mouth: oral and palatal mucosa normal Eyes PERRL, EOMs intact bilaterally and conjunctivae normal Neck no lymphadenopathy Resp Resp Narrative: diminished breath sounds bibasally, mild wheezing, no crackles. On 2L of oxygen by nasal canula Cardio regular rate, regular rhythm, S1 normal heart sound, S2 normal heart sound and no murmurs GI normal to inspection, nondistended, normoactive bowel sounds, soft to palpation, non-tender and non-distended Extremity normal to inspection, full ROM and no clubbing, cyanosis or edema Neuro CN's II-XII intact bilaterally and moves all extremities Sensorium / Orientation: awake and alert Motor Exam: strength 5/5 throughout Psych affect normal Assessment & Plan Assessment/Plan (1) Atrial fibrillation with RVR: (2) Acute respiratory failure with hypoxia: PLAN: Plan #HYpoxia due to URTI * on 2L of oxygen. Still wheezing. Titrate oxygen to maintain sats >90% * on IV solumedrol * breathing treatment with bronchodilators. * respiratory panel pending * #Afib with RVR * on digoxin and metoprolol. * HR not very well controlled. stop albuterol and continue duonebs IH * #Hypertension: on lisinopril and metoprolol. #Hyperlipidemia: on statin #CHRISTIANNE: on CPAP qhs #Morbid obesity: BMI is 52.5. counseled on weight loss and DASh diet as well as physical exercise DVT prophylaxis; on eliquis Charges/Coding Visit Charges Inpatient E&M: 65565 Subs Hosp L2
[2022-01-19] MEDS: 0.9% Saline Lock 10 ML Syringe IV ×3 (13:28→20:57)
--- NOTE | 2022-01-19 16:38 | CHAPLAIN ---
Type of Pastoral Visit _x__ Initial Visit ___ Follow-up Visit ___ On-call Visit ___ General Patient Visit ___ Spiritual Assessment ___ Family Conference ___ Bereavement ___ Rapid Response ___ Code Blue ___ Other (describe below) Pastoral Care Referral From _x__ Patient ___ Family ___ Nurse ___ Physician ___ Travel Ot ___ Valet Manager ___ Other (describe below) Sacrament/Intervention _x__ Active listening ___ Anointing ___ Synagogue ___ Bereavement ___ Communion ___ Kylie exploration ___ ___ Life review ___ Prayer ___ Reconciliation ___ Sacrament of Sick ___ Supportive presence ___ Wedding ___ Other (describe below) Pastoral Comments patient is sitting in chair and talking with a visitor/friend; pt says that she is doing better and that she is going to be okay; pt talks about friendship;
[2022-01-19 17:11] LABS: Bedside Glucose 185 mg/dL (74-106)
[2022-01-19] MEDS: Sertraline 50 MG Tablet 25 MG PO (20:52)
[2022-01-19] MEDS: Atorvastatin Calcium 10 MG Tablet PO (20:53)
[2022-01-20] VITALS (20 sets, daily range): BP systolic 100–156; BP diastolic 53–135; PULSE 96–148; RESP 16–20; TEMP 36.4–37; O2SAT 92–98
[2022-01-20 00:11] LABS: Bedside Glucose 153 mg/dL (74-106)
[2022-01-20] MEDS: 0.9% Saline Lock 10 ML Syringe IV ×2 (05:30→14:05)
[2022-01-20] MEDS: Insulin Lispro 100 UNIT/ML INSULN.PEN SC ×3 (06:59→16:34)
[2022-01-20 07:24] LABS: Hematocrit 42.6 % (37-47); Hemoglobin 13.4 g/dL (12.0-15.0); Lymphocyte % 4.3 % (19-41); Mean Corp Hgb Conc 31.5 g/dL (32-36); Mean Corpuscular Hgb 28.2 pg (27.0-32.0); Mean Corpuscular Volume 89.7 fL (81-99); Mean Platelet Vol. 12.4 fl (6.2-12.0); Neutrophil % 81.2 % (47-70); POSITIVE DIFFERENTIAL YES; Platelet Count 155 K/mm3 (150-450); RBC Distribution Width CV 14.5 % (11.6-14.6); RBC Distribution Width SD 47.6 fl (35.1-43.9); Red Blood Count 4.75 M/mm3 (4.2-5.4); White Blood Count 17.4 K/mm3 (4.4-11.0)
[2022-01-20 07:25] LABS: Absolute Lymphocyte Count 0.75 X10^3/uL (0.83-4.51); Absolute Neutrophil Count 14.1 X10^3/uL (2.0-7.7); Basophil# 0.03 X10^3/uL; Basophil% 0.2 % (0-1); Lymphocyte # 0.75 X10^3/ul (0.83-4.51); Monocyte# 2.22 X10^3/uL; Monocyte% 12.8 % (0-10); NRBC Flagged by Analyzer 0 % (0-5); Neutrophil # 14.14 X10^3/uL (2.7-7.7)
[2022-01-20] MEDS: Ipratropium/Albuterol Sulfate 3 ML AMPUL.NEB INHALATION ×5 (07:26→22:57)
[2022-01-20 07:40] LABS: Bedside Glucose 199 mg/dL (74-106)
[2022-01-20 07:51] LABS: Anion Gap 3 (5-15); BUN 27 mg/dL (7-18); BUN/Creat Ratio 31.2 RATIO (10-20); Calcium,Total 9.8 mg/dL (8.5-10.1); Chloride 101 mmol/L (98-107); Creatinine, Serum 0.86 mg/dL (0.55-1.02); EST Glomerular Filtration Rate 69 mL/min (>60); Est Glom Filt Rate - Afr Amer 83 mL/min (>60); Estimated Creatinine Clearance 112.81 ml/min; Glucose 199 mg/dL (74-106); Potassium 4.1 mmol/L (3.5-5.1); Sodium Level 137 mmol/L (136-145)
[2022-01-20 08:18] LABS: Differential Indicated SCAN CRITERIA MET
[2022-01-20 08:54] LABS: Differential Comment SCANNED
[2022-01-20] MEDS: Potassium Chloride Oral Tablet 20 MEQ PO (09:47)
[2022-01-20] MEDS: Lisinopril 20 MG Tablet PO (09:47)
[2022-01-20] MEDS: Metoprolol Tartrate 100 MG Tablet PO ×2 (09:47→21:01)
[2022-01-20] MEDS: Digoxin 125 MCG Tablet PO (09:47)
[2022-01-20] MEDS: Furosemide 40 MG Tablet PO ×2 (09:47→21:01)
[2022-01-20] MEDS: APIXABAN 5 MG TABLET PO ×2 (09:47→21:03)
[2022-01-20] MEDS: guaiFENesin 1,200 MG Tablet 1200 MG PO ×2 (09:48→21:01)
--- NOTE | 2022-01-20 10:20 | PN.HOSP_ITS ---
Subjective Subjective Patient seen and examined. She feels better and has no active complaints today. Her breathing is getting better though she is still coughing. Review of systems is otherwise negative. She has remained hemodynamically stable. Objective Data Objective Data Vital Signs: Vital Signs Temp Pulse Resp BP Pulse Ox O2 Del Method O2 Flow Rate 98.1 F 98 18 122/56 H 96 Nasal Cannula 2 01/20/22 09:38 01/20/22 09:47 01/20/22 09:38 01/20/22 09:38 01/20/22 09:38 01/20/22 09:44 01/20/22 09:44 Oxygen Flow Rate (L/min) 2 Oxygen Delivery Method Nasal Cannula Weight: 258 lb 13.163 oz Body Mass Index (BMI) 51.2 Intake & Output: Intake and Output for Last 24 Hours 01/18/22 01/19/22 01/20/22 23:59 23:59 23:59 Intake Total 1100 / 1100 Output Total 800 / 800 Balance 300 / 300 Lab / Micro Data Result Diagrams: 01/20/22 06:45 01/20/22 06:45 Labs: Laboratory Results - last 24 hr 01/18/22 21:55: Diff Path Review Reviewed 01/19/22 10:59: POC Glucose 248 H 01/19/22 16:23: POC Glucose 185 H 01/19/22 20:51: POC Glucose 153 H 01/20/22 06:45: WBC 17.4 H, RBC 4.75, Hgb 13.4, Hct 42.6, MCV 89.7, MCH 28.2, MCHC 31.5 L, RDW Std Deviation 47.6 H, RDW Coeff of Giles 14.5, Plt Count 155, MPV 12.4 H, Immature Gran % (Auto) 1.500 H, Neut % (Auto) 81.2 H, Lymph % (Auto) 4.3 L, [place] % (Auto) 12.8 H, Eos % (Auto) 0.0, Baso % (Auto) 0.2, Absolute Neuts (auto) 14.1 H, Absolute Lymphs (auto) 0.75 L, Nucleated RBC % 0, Differential Comment SCANNED, Diff Path Review July01/20/22 06:45: Sodium 137, Potassium 4.1, Chloride 101, Carbon Dioxide 33.0 H, Anion Gap 3 L, BUN 27 H, Creatinine 0.86, Estim Creat Clear Calc 112.81, Est GFR (MDRD) Af Amer 83, Est GFR (MDRD) Non-Af 69, BUN/Creatinine Ratio 31.2 H, Glucose 199 H, Calcium 9.8 01/20/22 06:58: POC Glucose 199 H Micro: Microbiology 01/19/22 07:45 Urine, Clean Catch Streptococcus pneumoniae Antigen (M - Final 01/19/22 07:45 Urine, Clean Catch Legionella Antigen - Final 01/18/22 21:46 Nasal Secretion SARS-CoV-2 & FLU Antigen (Rapid) - Final Physical Exam Const alert, oriented x3 and no apparent distress Constitutional Narrative: obese General Appearance: cooperative HEENT normocephalic, head/scalp atraumatic, hearing grossly normal bilaterally, moist oral mucous membranes and oropharynx normal Head and Scalp: normocephalic Mouth: oral and palatal mucosa normal Eyes PERRL, EOMs intact bilaterally and conjunctivae normal Eyes Narrative: No scleral icterus Neck no lymphadenopathy and supple Neck Narrative: Trachea midline Resp no retractions and no use of accessory muscles Resp Narrative: diminished breath sounds bibasally, mild wheezing, no crackles. On 2L of oxygen by nasal canula Auscultation: wheezes Cardio regular rate, regular rhythm, S1 normal heart sound, S2 normal heart sound, no murmurs, no rub, no gallops and no clicks Cardio Narrative: heart rate now 98. GI normal to inspection, nondistended, normoactive bowel sounds, soft to palpation, non-tender and non-distended Extremity normal to inspection, full ROM and no clubbing, cyanosis or edema Skin no rashes or lesions noted, no wounds, skin turgor normal, no jaundice, no petechiae and no mottling Neuro oriented x3, CN's II-XII intact bilaterally, moves all extremities and no focal motor deficits Neuro Narrative: No sensory deficits Sensorium / Orientation: awake and alert Speech: speech normal Motor Exam: strength 5/5 throughout Psych affect normal Psych Narrative: Very pleasant Assessment & Plan Assessment/Plan (1) Atrial fibrillation with RVR: (2) Acute respiratory failure with hypoxia: PLAN: Plan #HYpoxia due to URTI * on 2L of oxygen. wheezing has improved. Titrate oxygen to maintain sats >90% * on IV solumedrol * breathing treatment with bronchodilators. * respiratory panel pending * #Afib with RVR * on digoxin and metoprolol. * heart rate now controlled. Continue digoxin and metoprolol. Will monitor. * on eliquis * #Hypertension: on lisinopril and metoprolol. #Hyperlipidemia: on statin #CHRISTIANNE: on CPAP qhs #Morbid obesity: BMI is 52.5. counseled on weight loss and DASh diet as well as physical exercise DVT prophylaxis; on eliquis Charges/Coding Visit Charges Inpatient E&M: 32831 Subs Hosp L2
[2022-01-20 12:40] LABS: Bedside Glucose 248 mg/dL (74-106)
[2022-01-20 13:41] LABS: Pathologist Review Reviewed
--- NOTE | 2022-01-20 14:30 | CASEMGMT ---
This RN CM to room to discuss d/c plan. Pt states no concerns with going home and has been independent in room. Pt states no need for any further therapy at discharge. Pt has cpap thru [facility] and would like home oxygen thru same. CM to follow for home oxygen need and any further discharge planning/needs. . S[place]en BELLA CM
--- NOTE | 2022-01-20 19:12 | NURSING ---
Charting reviewed with Yamileth Burch RN
[2022-01-20 19:26] LABS: Bedside Glucose 194 mg/dL (74-106)
[2022-01-20] MEDS: Sertraline 50 MG Tablet 25 MG PO (21:01)
[2022-01-20] MEDS: Atorvastatin Calcium 10 MG Tablet PO (21:01)
[2022-01-20] MEDS: Acetaminophen 325 MG Tablet 650 MG PO (23:00)
[2022-01-20] MEDS: BENZOCAINE/MENTHOL 1 LOZENGE MUCOUS MEM (23:01)
[2022-01-21] VITALS (21 sets, daily range): BP systolic 117–156; BP diastolic 54–103; PULSE 79–157; RESP 16–22; TEMP 36.1–36.7; O2SAT 84–97
[2022-01-21] MEDS: 0.9% Saline Lock 10 ML Syringe IV (05:12)
[2022-01-21 05:25] LABS: Absolute Neutrophil Count 12.5 X10^3/uL (2.0-7.7); Basophil# 0.03 X10^3/uL; Basophil% 0.2 % (0-1); Hematocrit 41.5 % (37-47); Hemoglobin 13.2 g/dL (12.0-15.0); Lymphocyte % 5.8 % (19-41); Mean Corp Hgb Conc 31.8 g/dL (32-36); Mean Corpuscular Hgb 27.9 pg (27.0-32.0); Mean Corpuscular Volume 87.7 fL (81-99); Mean Platelet Vol. 12.7 fl (6.2-12.0); Monocyte# 1.93 X10^3/uL; Monocyte% 12.4 % (0-10); NRBC Flagged by Analyzer 0 % (0-5); POSITIVE DIFFERENTIAL YES; Platelet Count 151 K/mm3 (150-450); RBC Distribution Width CV 14.4 % (11.6-14.6); RBC Distribution Width SD 46.8 fl (35.1-43.9); Red Blood Count 4.73 M/mm3 (4.2-5.4); White Blood Count 15.6 K/mm3 (4.4-11.0)
[2022-01-21 05:28] LABS: Differential Indicated SCAN CRITERIA MET
[2022-01-21 05:48] LABS: Anion Gap 6 (5-15); BUN 29 mg/dL (7-18); Calcium,Total 9.6 mg/dL (8.5-10.1); Chloride 100 mmol/L (98-107); Creatinine, Serum 0.85 mg/dL (0.55-1.02); EST Glomerular Filtration Rate 70 mL/min (>60); Est Glom Filt Rate - Afr Amer 85 mL/min (>60); Estimated Creatinine Clearance 114.14 ml/min; Glucose 150 mg/dL (74-106); Potassium 4.5 mmol/L (3.5-5.1); Sodium Level 140 mmol/L (136-145)
[2022-01-21 06:14] LABS: Differential Comment SCANNED
[2022-01-21] MEDS: Insulin Lispro 100 UNIT/ML INSULN.PEN SC ×3 (06:34→16:37)
[2022-01-21 06:40] LABS: Bedside Glucose 155 mg/dL (74-106)
[2022-01-21] MEDS: Ipratropium/Albuterol Sulfate 3 ML AMPUL.NEB INHALATION ×4 (06:55→18:58)
[2022-01-21] MEDS: Potassium Chloride Oral Tablet 20 MEQ PO (09:25)
[2022-01-21] MEDS: APIXABAN 5 MG TABLET PO ×2 (09:25→21:37)
[2022-01-21] MEDS: Digoxin 125 MCG Tablet PO (09:25)
[2022-01-21] MEDS: Furosemide 40 MG Tablet PO ×2 (09:25→21:37)
[2022-01-21] MEDS: Metoprolol Tartrate 100 MG Tablet PO ×2 (09:25→21:38)
[2022-01-21] MEDS: Lisinopril 20 MG Tablet PO (09:25)
[2022-01-21] MEDS: guaiFENesin 1,200 MG Tablet 1200 MG PO ×2 (09:25→21:37)
--- NOTE | 2022-01-21 10:50 | CASEMGMT ---
Pt became tachycardic with ambulatory pulse ox and required 4L walking. Per Dr. Ibarra, pt will not d/c today. CM to follow. Vickie BLANCO CM
--- NOTE | 2022-01-21 10:59 | PN.HOSP_ITS ---
Subjective Subjective Doing well, no issues overnight. She did require 4 L oxygen on ambulatory pulse ox today however she did become severely tachycardic and could not walk very far Objective Data Objective Data Vital Signs: Vital Signs Temp Pulse Resp BP Pulse Ox O2 Del Method O2 Flow Rate 97.4 F L 141 H 20 H 128/97 H 95 Nasal Cannula 2 01/21/22 10:17 01/21/22 10:17 01/21/22 10:17 01/21/22 10:17 01/21/22 10:17 01/21/22 10:17 01/21/22 10:17 Oxygen Flow Rate (L/min) [ 4 AMBULATING with Oxygen #2] Oxygen Flow Rate (L/min) [ 2 AMBULATING with Oxygen #1] Oxygen Flow Rate (L/min) 2 Oxygen Delivery Method Nasal Cannula Weight: 255 lb 15.307 oz Body Mass Index (BMI) 51.2 Intake & Output: Intake and Output for Last 24 Hours 01/20/22 01/21/22 01/22/22 03:59 03:59 03:59 Intake Total 1100 / 1100 240 / 240 Output Total 800 / 800 Balance 300 / 300 240 / 240 Lab / Micro Data Result Diagrams: 01/21/22 04:39 01/21/22 04:39 Labs: Laboratory Results - last 24 hr 01/20/22 06:45: Diff Path Review Reviewed 01/20/22 12:00: POC Glucose 248 H 01/20/22 16:31: POC Glucose 194 H 01/21/22 04:39: WBC 15.6 H, RBC 4.73, Hgb 13.2, Hct 41.5, MCV 87.7, MCH 27.9, MCHC 31.8 L, RDW Std Deviation 46.8 H, RDW Coeff of Giles 14.4, Plt Count 151, MPV 12.7 H, Immature Gran % (Auto) 1.600 H, Neut % (Auto) 80.0 H, Lymph % (Auto) 5.8 L, [place] % (Auto) 12.4 H, Eos % (Auto) 0.0, Baso % (Auto) 0.2, Absolute Neuts (auto) 12.5 H, Absolute Lymphs (auto) 0.90, Nucleated RBC % 0, Differential Comment SCANNED, Diff Path Review July01/21/22 04:39: Sodium 140, Potassium 4.5, Chloride 100, Carbon Dioxide 34.0 H, Anion Gap 6, BUN 29 H, Creatinine 0.85, Estim Creat Clear Calc 114.14, Est GFR (MDRD) Af Amer 85, Est GFR (MDRD) Non-Af 70, BUN/Creatinine Ratio 34.0 H, Glucose 150 H, Calcium 9.6 01/21/22 06:21: POC Glucose 155 H Micro: Microbiology 01/18/22 23:50 Mucosa - Nasopharyngeal Respiratory Panel (PCR) - Final RSV A RSV B 01/19/22 07:45 Urine, Clean Catch Streptococcus pneumoniae Antigen (M - Final 01/19/22 07:45 Urine, Clean Catch Legionella Antigen - Final 01/18/22 21:46 Nasal Secretion SARS-CoV-2 & FLU Antigen (Rapid) - Final Physical Exam Narrative General: Alert, Oriented x3, Cooperative, No apparent distress HEENT: Atraumatic, PERRLA, EOMI, Normocephalic Oral: Moist Mucosa Neck: Supple, No JVD Lungs: Diminished, Normal air movement, No rhonchi, wheeze, No rales Cardiovascular: Regular rate, Regular Rhythm, Normal S1, Normal S2, No murmurs Abdomen: Soft, Non Tender, Non-Distended, No Hepato-splenomegaly Extremities: No edema, Capillary Refill Less than 3 Seconds Skin: No rashes, No breakdown Musculoskeletal: No Tenderness to Palpation of Joints or Extremities Neurological: Cranial nerves II-XII grossly intact, Motor Exam 5/5 strength throughout, Sensory exam intact to light touch and pain Psych/Mental Status: Normal Affect, Appropriate Assessment & Plan Assessment/Plan (1) Atrial fibrillation with RVR: (2) Acute respiratory failure with hypoxia: PLAN: Plan 1. Acute hypoxic respiratory failure secondary to RSV URI * on 2L of oxygen. wheezing has improved. Titrate oxygen to maintain sats >90% * on IV solumedrol * breathing treatment with bronchodilators. * RSV, will repeat ambulatory pulse ox in the morning 2. Afib with RVR/HTN/HLD * on digoxin and metoprolol. * heart rate now controlled. Continue digoxin and metoprolol. Will monitor. * on eliquis and Lasix * Continue with lisinopril * Continue with statin 3. CHRISTIANNE/morbid obesity * On CPAP qhs * BMI 52.5, counseled on weight loss 4. Anxiety/depression * Stable, continue with Zoloft DVT: eliquis Charges/Coding Visit Charges Inpatient E&M: 74671 Subs Hosp L2
[2022-01-21 11:40] LABS: Bedside Glucose 346 mg/dL (74-106)
[2022-01-21 16:56] LABS: Bedside Glucose 202 mg/dL (74-106)
--- NOTE | 2022-01-21 20:34 | PCM.HOSP.N ---
Hospitalist Note Patient with elevated HR, atrial fibrillation, on high dose BB. Will dose x 1 now with cardizem 10 mg x 1.
[2022-01-21] MEDS: dilTIAZem 25 MG/5 ML Vial 10 MG IV BOLUS (21:03)
[2022-01-21] MEDS: Sertraline 50 MG Tablet 25 MG PO (21:37)
[2022-01-21] MEDS: Atorvastatin Calcium 10 MG Tablet PO (21:37)
[2022-01-21] MEDS: Benzonatate 100 MG Capsule 200 MG PO (21:38)
[2022-01-22] VITALS (11 sets, daily range): BP systolic 123–140; BP diastolic 47–75; PULSE 88–120; RESP 17–20; TEMP 36.5–37.1; O2SAT 85–97
[2022-01-22 05:22] LABS: Absolute Neutrophil Count 12.6 X10^3/uL (2.0-7.7); Basophil# 0.06 X10^3/uL; Basophil% 0.3 % (0-1); Eosinophil# 0.01 X10^3/uL; Hematocrit 46.2 % (37-47); Hemoglobin 14.4 g/dL (12.0-15.0); Lymphocyte % 9.9 % (19-41); Mean Corp Hgb Conc 31.2 g/dL (32-36); Mean Corpuscular Hgb 27.6 pg (27.0-32.0); Mean Corpuscular Volume 88.7 fL (81-99); Mean Platelet Vol. 12.6 fl (6.2-12.0); Monocyte# 5.17 X10^3/uL; Monocyte% 25.5 % (0-10); NRBC Flagged by Analyzer 0 % (0-5); Neutrophil # 12.64 X10^3/uL (2.7-7.7); Neutrophil % 62.2 % (47-70); POSITIVE DIFFERENTIAL YES; Platelet Count 152 K/mm3 (150-450); RBC Distribution Width CV 14.5 % (11.6-14.6); Red Blood Count 5.21 M/mm3 (4.2-5.4); White Blood Count 20.3 K/mm3 (4.4-11.0)
[2022-01-22 05:43] LABS: Anion Gap 8 (5-15); BUN 28 mg/dL (7-18); BUN/Creat Ratio 32.3 RATIO (10-20); Calcium,Total 9.2 mg/dL (8.5-10.1); Chloride 98 mmol/L (98-107); Creatinine, Serum 0.87 mg/dL (0.55-1.02); EST Glomerular Filtration Rate 69 mL/min (>60); Est Glom Filt Rate - Afr Amer 83 mL/min (>60); Estimated Creatinine Clearance 110.28 ml/min; Glucose 120 mg/dL (74-106); Potassium 3.6 mmol/L (3.5-5.1); Sodium Level 141 mmol/L (136-145)
[2022-01-22 06:01] LABS: Differential Indicated SCAN CRITERIA MET
[2022-01-22 06:19] LABS: Differential Comment SCANNED
[2022-01-22] MEDS: Ipratropium/Albuterol Sulfate 3 ML AMPUL.NEB INHALATION ×3 (06:46→15:01)
[2022-01-22 07:20] LABS: Bedside Glucose 132 mg/dL (74-106)
[2022-01-22] MEDS: dilTIAZem 25 MG/5 ML Vial 10 MG IV BOLUS (07:25)
[2022-01-22] MEDS: Lisinopril 20 MG Tablet PO (08:09)
[2022-01-22] MEDS: Digoxin 125 MCG Tablet PO (08:09)
[2022-01-22] MEDS: Metoprolol Tartrate 100 MG Tablet PO (08:09)
[2022-01-22] MEDS: predniSONE 20 MG Tablet 40 MG PO (08:09)
[2022-01-22] MEDS: Furosemide 40 MG Tablet PO (08:09)
[2022-01-22] MEDS: Potassium Chloride Oral Tablet 20 MEQ PO (08:10)
[2022-01-22 09:41] LABS: Pathologist Review Reviewed
[2022-01-22] MEDS: guaiFENesin 1,200 MG Tablet 1200 MG PO (10:16)
[2022-01-22] MEDS: APIXABAN 5 MG TABLET PO (10:16)
[2022-01-22] MEDS: Insulin Lispro 100 UNIT/ML INSULN.PEN SC (11:14)
[2022-01-22 11:36] LABS: Bedside Glucose 221 mg/dL (74-106)
--- NOTE | 2022-01-22 13:22 | DCINST_ITS ---
Discharge Instructions Diet Discharge Diet: Low fat / Low cholesterol Activity Discharge Activity: Return to Normal Activity Dressing / Incision Call your doctor if you observe: Fever of 101 or Higher, Shortness of breath, Dizziness, Fainting spells, Swelling in the ankles, Chest pain and Increased palpitations (irregular heartbeat) Follow Up Care Test Results: Test results from this visit will be discussed in further detail at your follow- up appointment, if applicable. Discharge Plan Admission Admit Date/Time: 01/18/22 23:24 Attending Provider: Jimbo Ibarra Primary Care Provider: Kory Ibarra Consulting Providers: Jemima Poe ; Luna Bustamante Discharge Orders/Prescriptions Prescriptions: New prednisone 20 mg Tablet 40 mg PO BREAKFAST Qty: 14 0RF Mucus Relief ER 1,200 mg Tablet Extended Release 12hr 1,200 mg PO BID Qty: 10 0RF albuterol sulfate 0.63 mg/3 mL solution for nebulization 0.63 mg inhalation Q4H PRN (Reason: shortness of breath or wheezing) Qty: 75 0RF Continued furosemide 40 MG tablet 40 mg PO BID Label Comments: Water pill sertraline 50 MG tablet 25 mg PO QHS Label Comments: Anti-depressant/anxiety potassium chloride [Klor-Con M20] 20 MEQ tablet 20 meq PO DAILY Label Comments: SUPPLEMENT lisinopril 10 MG tablet 20 mg PO DAILY Label Comments: BLOOD PRESSURE/HEART digoxin [Digox] 125 MCG tablet 125 mcg PO DAILY Label Comments: HEART metoprolol tartrate 50 MG tablet 100 mg PO BID Label Comments: Heart rate/blood pressure atorvastatin 10 MG tablet 10 mg PO QHS Label Comments: CHOLESTEROL Eliquis 5 mg tablet 5 mg PO BID Referrals / Follow Up: Kory Ibarra DO [Primary Care Provider] - Within 1 Week Disposition Disposition (needs filled in before D/C Order can be placed): Home, Self Care
--- NOTE | 2022-01-22 13:28 | DS.PCM_ITS ---
Providers Date of Admission: 01/18/22 Primary Care Physician: Dr. Kory Ibarra DO Reason For Visit: ACUTE HYPOXIC RESPIRATORY FAILURE Diagnosis Discharge Diagnosis (1) Atrial fibrillation with RVR: Status: Acute Code(s): I48.91 - Unspecified atrial fibrillation (2) Acute respiratory failure with hypoxia: Status: Acute Code(s): J96.01 - Acute respiratory failure with hypoxia Plan 1. Acute hypoxic respiratory failure secondary to RSV URI * on 2L of oxygen. wheezing has improved. Titrate oxygen to maintain sats >90% * on IV solumedrol * breathing treatment with bronchodilators. * RSV, will repeat ambulatory pulse ox in the morning 2. Afib with RVR/HTN/HLD * on digoxin and metoprolol. * heart rate now controlled. Continue digoxin and metoprolol. Will monitor. * on eliquis and Lasix * Continue with lisinopril * Continue with statin 3. CHRISTIANNE/morbid obesity * On CPAP qhs * BMI 52.5, counseled on weight loss 4. Anxiety/depression * Stable, continue with Zoloft DVT: eliquis Medications at Discharge Home Medications furosemide 40 mg tablet 40 mg PO BID 10/27/13 sertraline 50 mg tablet 25 mg PO QHS 10/27/13 digoxin 125 mcg (0.125 mg) tablet (Digox) 125 mcg PO DAILY 01/24/16 lisinopril 10 mg tablet 20 mg PO DAILY Check with primary doctor 01/24/16 metoprolol tartrate 50 mg tablet 100 mg PO BID 01/24/16 potassium chloride 20 mEq tablet,extended release(part/cryst) (Klor-Con M) 20 meq PO DAILY 01/24/16 atorvastatin 10 mg tablet 10 mg PO QHS 07/14/16 apixaban 5 mg tablet (Eliquis) 5 mg PO BID 01/18/22 albuterol sulfate 0.63 mg/3 mL solution for nebulization 0.63 mg (3 mL) inhalation Q4H PRN shortness of breath or wheezing #75 mL 01/22/22 guaifenesin 1,200 mg tablet, extended release 12 hr (Mucus Relief ER) 1,200 mg PO BID #10 tabs 01/22/22 prednisone 20 mg tablet 40 mg PO BREAKFAST #14 tabs 01/22/22 Hospital Course Operations None Procedures None Summary of Care Provided Minutes Spent on Discharge: 40 Hospital Course: Acute Per HPI: GUNNER BAKER, is a 71 F who presented to the emergency department [facility] on 01/18/2022 complaining of shortness of breath.? She states she was really feeling fine yesterday she got her shingles and flu vac cine but this morning she started to feel poorly.? She has trouble describing how she felt but it sounds like she had just generalized weakness and fatigue.? She began coughing and developing some shortness of breath.? Her daughter is a NICU nurse here in [place] and recommended she come to the emergency department for further evaluation.? Evidently, her family has been ill with respiratory illnesses over the past couple weeks and she had been doing well up until today.? She has no known history of COPD or tobacco abuse however she has long history of secondhand smoke exposure in her parents and her .? She reports small amount of nasal congestion but denies any headache, nausea and vo miting, constipation diarrhea, or tingling numbness/weakness.? She states she is coughing intermittently and producing some sputum.? She indicates she has chronic atrial fibrillation but when she gets ill she tends to have rapid rates as she is having at this time.? She states typically she is well rate controlled with her current medication regimen. Vitals on presentation demonstrated a temperature of 97.8, heart rate 131, blood pressure 158/83, respiratory rate anywhere from 20-24, and initial oxygen saturations were 79% on room air.? Sats improved to 96 to 97% on 2 L nasal cannula.? CBC showed a leukocytosis with a white count of 14.1 however her differential is predominantly monocytes at 21.4%.? An ABG was performed however it appears to be a mixed gas.? Her chemistry panel was overall unremarkable other than hyperglycemia with a blood glucose level of 172.? Chest x-ray is unremarkable for any acute findings.? EKG shows A. fib with RVR, intervals are normal, no ST-T wave changes consistent with acute ischemia. In the emergency department she was treated with steroids and recommendation for admission was made. Hospital Course: 1. Acute hypoxic respiratory failure secondary to RSV URI?71-year-old female presented to the hospital with acute hypoxic respiratory failure secondary to RSV. She is improving on steroids as well as breathing treatments. She was transitioned to 40 mg prednisone p.o. daily today and she did have an ambulatory pulse ox which demonstrated a 2 L of oxygen need with ambulation and room air at rest. She felt better today ambulating and I discussed with her the possibility for discharge today and she expressed understanding of the risk benefits of going home and would like to go home today. I do feel that she would benefit from 7 more days of prednisone as well as a nebulizer with breathing treatments. I do recommend she follow-up with her PCP in 3 to 5 days to monitor progress. 2. A. fib, hypertension, hyperlipidemia, CHRISTIANNE, morbid obesity, anxiety, depression are all chronic medical conditions which complicate her care. Her home medications were continued where appropriate. She did require a dose of Cardizem to get her heart rate under control, she states that it does normally j ump up whenever she is active. At this time we will not change her from high- dose metoprolol to Cardizem, I do recommend outpatient follow-up for medication adjustments. Physical Exam Narrative General: Alert, Oriented x3, Cooperative, No apparent distress HEENT: Atraumatic, PERRLA, EOMI, Normocephalic Oral: Moist Mucosa Neck: Supple, No JVD Lungs: Diminished, Normal air movement, No rhonchi, wheeze, No rales Cardiovascular: Regular rate, Regular Rhythm, Normal S1, Normal S2, No murmurs Abdomen: Soft, Non Tender, Non-Distended, No Hepato-splenomegaly Extremities: No edema, Capillary Refill Less than 3 Seconds Skin: No rashes, No breakdown Musculoskeletal: No Tenderness to Palpation of Joints or Extremities Neurological: Cranial nerves II-XII grossly intact, Motor Exam 5/5 strength throughout, Sensory exam intact to light touch and pain Psych/Mental Status: Normal Affect, Appropriate Weight / BMI Weight Weight: 256 lb 6.362 oz Body Mass Index (BMI) 51.2 ABG / Lab / Microbiology Data Result Diagrams: 01/22/22 04:30 01/22/22 04:30 Laboratory: Laboratory Results - last 24 hr 01/21/22 04:39: Diff Path Review Reviewed 01/21/22 16:36: POC Glucose 202 H 01/22/22 04:30: WBC 20.3 H, RBC 5.21, Hgb 14.4, Hct 46.2, MCV 88.7, MCH 27.6, MCHC 31.2 L, RDW Std Deviation 47.0 H, RDW Coeff of Giles 14.5, Plt Count 152, MPV 12.6 H, Immature Gran % (Auto) 2.100 H, Neut % (Auto) 62.2, Lymph % (Auto) 9.9 L , [place] % (Auto) 25.5 H, Eos % (Auto) 0.0, Baso % (Auto) 0.3, Absolute Neuts (auto) 12.6 H, Absolute Lymphs (auto) 2.00, Nucleated RBC % 0, Differential Comment SCANNED, Diff Path Review July01/22/22 04:30: Sodium 141, Potassium 3.6, Chloride 98, Carbon Dioxide 35.0 H, Anion Gap 8, BUN 28 H, Creatinine 0.87, Estim Creat Clear Calc 110.28, Est GFR (MDRD) Af Amer 83, Est GFR (MDRD) Non-Af 69, BUN/Creatinine Ratio 32.3 H, Glucose 120 H, Calcium 9.2 01/22/22 06:30: POC Glucose 132 H 01/22/22 11:13: POC Glucose 221 H Microbiology: Microbiology 01/18/22 23:50 Mucosa - Nasopharyngeal Respiratory Panel (PCR) - Final RSV A RSV B 01/19/22 07:45 Urine, Clean Catch Streptococcus pneumoniae Antigen (M - Final 01/19/22 07:45 Urine, Clean Catch Legionella Antigen - Final 01/18/22 21:46 Nasal Secretion SARS-CoV-2 & FLU Antigen (Rapid) - Final D/C Instructions Discharge Diet: Low fat / Low cholesterol Call your doctor if you observe: Fever of 101 or Higher, Shortness of breath, Dizziness, Fainting spells, Swelling in the ankles, Chest pain and Increased palpitations (irregular heartbeat) Meaningful Use Info Meaningful Use Diagnoses (Choose all that apply): None applicable Discharge Plan Admission Admit Date/Time: 01/18/22 23:24 Attending Provider: Jimbo Ibarra Primary Care Provider: Kory Ibarra Consulting Providers: Jemima Poe ; Luna Bustamante Discharge Orders/Prescriptions Prescriptions: New prednisone 20 mg Tablet 40 mg PO BREAKFAST Qty: 14 0RF Mucus Relief ER 1,200 mg Tablet Extended Release 12hr 1,200 mg PO BID Qty: 10 0RF albuterol sulfate 0.63 mg/3 mL solution for nebulization 0.63 mg inhalation Q4H PRN (Reason: shortness of breath or wheezing) Qty: 75 0RF Continued furosemide 40 MG tablet 40 mg PO BID Label Comments: Water pill sertraline 50 MG tablet 25 mg PO QHS Label Comments: Anti-depressant/anxiety potassium chloride [Klor-Con M20] 20 MEQ tablet 20 meq PO DAILY Label Comments: SUPPLEMENT lisinopril 10 MG tablet 20 mg PO DAILY Label Comments: BLOOD PRESSURE/HEART digoxin [Digox] 125 MCG tablet 125 mcg PO DAILY Label Comments: HEART metoprolol tartrate 50 MG tablet 100 mg PO BID Label Comments: Heart rate/blood pressure atorvastatin 10 MG tablet 10 mg PO QHS Label Comments: CHOLESTEROL Eliquis 5 mg tablet 5 mg PO BID Referrals / Follow Up: Kory Ibarra DO [Primary Care Provider] - Within 1 Week Disposition Disposition (needs filled in before D/C Order can be placed): Home, Self Care Charges/Coding Visit Charges Inpatient E&M: 39263 Disch Hosp
--- NOTE | 2022-01-22 14:17 | CASEMGMT ---
Addendum entered by Kami Lynne 01/22/22 14:30: Pt provided a [facility] pulse ox for discharge. Vickie BLANCO CM Original Note: Pt qualifies for home oxygen 2L w/ exertion and thru cpap per nursing and Dr. Ibarra. Pt would also like nebulizer. Pt's cpap is thru [facility] and pt would the rest of DME from there as well. Order obtained and faxed to [facility]. Pt states no need for therapy at discharge. Call to Edgardo at [facility] to notify of order and need for e-tank at discharge, voices understanding. Pt voices no further questions/concerns/needs. Vickie BLANCO CM
[2022-01-22 15:40] LABS: Pathologist Review Reviewed
== END 2022-01-22 16:13 | disposition home or self-care (01) | DRG 152 ==
LOC: ED 23:20 → PCU 01-19 07:13
PROVIDERS: Student in an Organized Health Care Education/Training Program; Admitting Provider Internal Medicine; Emergency Provider Emergency Medicine; PCP Family Medicine; Visit Provider Family Medicine
DX: J06.9 Acute upper respiratory infection, unspecified (principal); J96.01 Acute respiratory failure with hypoxia; Z68.43 Body mass index [BMI] 50.0-59.9, adult; I48.0 Paroxysmal atrial fibrillation; I11.0 Hypertensive heart disease with heart failure; I50.9 Heart failure, unspecified; E66.01 Morbid (severe) obesity due to excess calories; J98.01 Acute bronchospasm; E78.5 Hyperlipidemia, unspecified; G47.33 Obstructive sleep apnea (adult) (pediatric); F41.9 Anxiety disorder, unspecified; B97.4 Respiratory syncytial virus as the cause of diseases classified elsewhere; Z79.51 Long term (current) use of inhaled steroids; Z20.822 Contact with and (suspected) exposure to COVID-19; Z79.01 Long term (current) use of anticoagulants; F32.A Depression, unspecified; Z79.899 Other long term (current) drug therapy
CPT/HCPCS: 36415; 36600; 71045; 80048; 80053; 82803; 82962; 83036; 83605; 83735; 84100; 84443; 85025; 87428; 87449; 87633; 93005; 94640; 94667; 94668; 97162; 99251; 99284; A4216; G0463

== ENCOUNTER 2023-12-01 11:08 | Inpatient (IN) | payer MEDICARE, MEDICAID, SELFPAY ==
[2023-12-01] VITALS (9 sets, daily range): BP systolic 118–162; BP diastolic 52–99; PULSE 77–112; RESP 16–25; TEMP 36.6–37.2; O2SAT 95–99; BMI 52.4; BMI 51.0
--- NOTE | 2023-12-01 11:18 | EKG12_ITS ---
Test Reason : SOB Blood Pressure : / mmHG Vent. Rate : 099 BPM Atrial Rate : 000 BPM P-R Int : 000 ms QRS Dur : 086 ms QT Int : 326 ms P-R-T Axes : 000 057 059 degrees QTc Int : 418 ms Atrial fibrillation Abnormal ECG Confirmed by Brayan Link ([id number]), photographic editor KRISSY MORALES ([id number]) on 12/06/2023 10:20:42 AM Referred By: Kavin Rayo Confirmed By:Brayan Link
--- NOTE | 2023-12-01 11:27 | EX.ED.DYSGE1 ---
HPI History of Present Illness Chief Complaint: Shortness of Breath Narrative Narrative: Patient is a 73-year-old female past medical history atrial fibrillation on Eliquis, CHRISTIANNE, CHF, dyslipidemia who presented to the emerged part with chief complaint of low oxygen levels. According to the family ember at bedside there have been some upper respiratory illnesses going through the house. States that on Wednesday they noted that her oxygen level was in the 70s and noted that she had increased swelling in her lower extremities therefore they had at home oxygen from a previous bout of RSV as well as inhalers which they put on her. They noted that they increased her home Lasix for 2 days and seemed to get better. They state that today they called her primary care physician's office for a follow-up appointment however they advised her to come here as her oxygen level once again was in the 70s on room air. She states that she is not chronically on oxygen. States that she has never smoked and denies any history of COPD or asthma.They state that she has been compliant with her anticoagulation not missing doses. [facility] Medical History Asthma Depression Atrial fibrillation with RVR Anticoagulant long-term use Obstructive sleep apnea Congestive heart failure (CHF) Dyslipidemia HTN (hypertension) Paroxysmal atrial fibrillation Morbid obesity with body mass index of 50.0-59.9 in adult Home Medications ?Medication ?Instructions ?Recorded ?Last Taken ?Type furosemide 40 mg tablet 40 mg PO BID diuretic 10/27/13 07/14/16 History sertraline 50 mg tablet 25 mg PO QHS mental health 10/27/13 07/13/16 History digoxin 125 mcg (0.125 mg) tablet 125 mcg PO DAILY heart rate 01/24/16 07/14/16 History (Digox) lisinopril 10 mg tablet 20 mg PO DAILY blood pressure 01/24/16 07/14/16 History metoprolol tartrate 50 mg tablet 100 mg PO BID blood pressure 01/24/16 07/14/16 History potassium chloride 20 mEq 20 meq PO DAILY supplement 01/24/16 07/14/16 History tablet,extended release(part/cryst) (Klor-Con M) atorvastatin 10 mg tablet 10 mg PO QHS cholesterol 07/14/16 07/13/16 History apixaban 5 mg tablet (Eliquis) 5 mg PO BID blood thinner 01/18/22 Unknown History albuterol sulfate 0.63 mg/3 mL 0.63 mg (3 mL) inhalation Q4H PRN 01/22/22 Unknown Rx solution for nebulization shortness of breath or wheezing #75 mL guaifenesin 1,200 mg tablet, 1,200 mg PO BID #10 tabs 01/22/22 Unknown Rx extended release 12 hr (Mucus Relief ER) prednisone 20 mg tablet 40 mg (2 x 20 mg) PO BREAKFAST #14 01/22/22 Unknown Rx tabs Allergy/AdvReac Type Severity Reaction Status Date / Time Tetanus Vaccines and Toxoid Allergy Unknown Verified 12/01/23 11:11 (Tetanus Vaccines & Toxoid) Family History Grandmother Breast cancer Father CVA (cerebral vascular accident) Surgical History H/O oophorectomy History of appendectomy Social History household members: children and none housing: house number of children: 2 current occupational status: retired pets and animals: Yes (2 dogs/2 cats) Smoking Status: Never smoker alcohol intake: never substance use type: does not use ROS ROS ED ROS Narrative Constitutional: Denies fevers, chills, headaches, lightheadedness, dizziness Eyes: Denies double vision blurry vision changes vision Cardiovascular: Denies chest pain or palpitations Respiratory: Complains of cough and shortness of breath as noted above Abdomen: Denies abdominal pain nausea vomit diarrhea : Denies any urinary symptoms Neurological: Denies numbness, weakness, tingling Musculoskeletal: Denies back pain Skin: Denies rashes or lesions EXAM Physical Exam Narrative Exam Narrative: General: Patient was lying in bed rest comfortably did not appear to be in acute distress Head: Atraumatic, normocephalic Eyes: PERRL bilaterally, EOMI bilateral, no conjunctival injection noted Neck: Soft, supple, trachea midline Cardiovascular: Regular rate and rhythm no murmurs gallops rubs noted Respiratory: Clear to auscultation bilaterally with end expiratory wheezing noted bilaterally Abdomen: Soft, nondistended, no tenderness palpation patient Extremities: +4/5 strength noted in the bilateral lower extremities, 1+ pitting edema in the lower extremities, chronic skin changes noted Neurological: Patient following commands knew that she was at [facility] years 2023 Skin: Warm, dry, see extremities Const Vital Signs: 12/01/23 11:08 12/01/23 11:11 12/01/23 11:11 Temperature 97.8 F 98.9 F Temperature Source Temporal Oral Pulse Rate 97 89 Respiratory Rate 18 25 H Respiratory Effort Short of Breath Respiratory Depth Shallow Respiratory Pattern Tachypnea Blood Pressure 118/82 H 162/99 H Blood Pressure Mean 94 120 Pulse Ox 98 97 Oxygen Delivery Method Nasal Cannula Nasal Cannula Nasal Cannula Oxygen Flow Rate (L/min) 3 3 12/01/23 11:20 Temperature Temperature Source Pulse Rate Respiratory Rate Respiratory Effort Respiratory Depth Respiratory Pattern Blood Pressure Blood Pressure Mean Pulse Ox Oxygen Delivery Method Nasal Cannula Oxygen Flow Rate (L/min) 3 MDM MDM MDM Narrative Medical decision making narrative: Patient is a 73-year-old female who presented to the emergency department with chief complaint of cough and shortness of breath as well as hypoxia. Patient will have workup performed here on the differential diagnose includes but limited to CHF exacerbation, ACS, pneumonia, upper respiratory effect second of ideology. Once workup is obtained reviewed she will be reevaluated. Patient be given IV fluids and will not be given 30 cc/kg bolus based on concern for volume overload state and heart failure exacerbation. Discharge Plan Triage Chief Complaint: Shortness of Breath ED Provider: Kavin Rayo Dx/Rx/DC Orders Prescriptions: No Action furosemide 40 MG tablet 40 mg PO BID Patient Comments: Water pill sertraline 50 MG tablet 25 mg PO QHS Patient Comments: Anti-depressant/anxiety potassium chloride [Klor-Con M20] 20 MEQ tablet 20 meq PO DAILY Patient Comments: SUPPLEMENT lisinopril 10 MG tablet 20 mg PO DAILY Patient Comments: BLOOD PRESSURE/HEART digoxin [Digox] 125 MCG tablet 125 mcg PO DAILY Patient Comments: HEART metoprolol tartrate 50 MG tablet 100 mg PO BID Patient Comments: Heart rate/blood pressure atorvastatin 10 MG tablet 10 mg PO QHS Patient Comments: CHOLESTEROL Eliquis 5 mg tablet 5 mg PO BID prednisone 20 mg Tablet 40 mg PO BREAKFAST Qty: 14 0RF Mucus Relief ER 1,200 mg Tablet Extended Release 12hr 1,200 mg PO BID Qty: 10 0RF albuterol sulfate 0.63 mg/3 mL solution for nebulization 0.63 mg inhalation Q4H PRN (Reason: shortness of breath or wheezing) Qty: 75 0RF Primary Care Provider: Kory Ibarra Referrals: Kory Ibarra DO [Primary Care Provider] - Print Language: German
[2023-12-01 11:53] LABS: Absolute Lymphocyte Count 1.49 X10^3/uL (0.83-4.51); Absolute Neutrophil Count 11.5 X10^3/uL (2.0-7.7); Basophil# 0.02 X10^3/uL; Basophil% 0.1 % (0-1); Eosinophil# 0.01 X10^3/uL; Eosinophils% 0.1 % (0-5); Hematocrit 34.5 % (37-47); Hemoglobin 10.7 g/dL (12.0-15.0); Lymphocyte # 1.49 X10^3/ul (0.83-4.51); Lymphocyte % 8.5 % (19-41); Mean Corpuscular Hgb 27.3 pg (27.0-32.0); Mean Platelet Vol. 12.5 fl (6.2-12.0); Monocyte# 4.19 X10^3/uL; NRBC Flagged by Analyzer 0 % (0-5); Neutrophil # 11.52 X10^3/uL (2.7-7.7); Neutrophil % 66.2 % (47-70); POSITIVE DIFFERENTIAL YES; Platelet Count 121 K/mm3 (150-450); RBC Distribution Width CV 14.6 % (11.6-14.6); Red Blood Count 3.92 M/mm3 (4.2-5.4); White Blood Count 17.4 K/mm3 (4.4-11.0)
[2023-12-01 11:54] LABS: Differential Indicated SCAN CRITERIA MET
[2023-12-01 12:00] LABS: Mucous, Urine 0 SEEN /hpf (<or=2+)
--- NOTE | 2023-12-01 12:00 | RAD_ITS ---
STUDY: X-RAY CHEST REASON FOR EXAM: Female, 73 years old. Sob TECHNIQUE: AP and lateral views of the chest. COMPARISON: Comparison is made with prior study dated January 18, 2022. FINDINGS: EKG electrodes are seen. There is consolidation of the right middle lobe. Radiographic follow-up is recommended. There is no demonstrated pleural abnormality. There is mild cardiac enlargement. Normal mediastinum and chelo. Normal visualized pulmonary arteries. Normal visualized aortic arch and descending thoracic aorta. There are degenerative changes of the visualized thoracic spine. Normal visualized ribs, clavicles, and shoulders. There is no demonstrated abnormality of the visualized soft tissue structures of the upper abdomen. RAD/Chest PA and Lateral IMPRESSION: Right middle lobe consolidation. Radiographic follow-up recommended. Electronically Signed: Aris Dubon MD at 12:12 EDT ,
[2023-12-01 12:12] LABS: Anion Gap 5 (5-15); BUN 14 mg/dL (7-18); BUN/Creat Ratio 19.7 RATIO (10-20); Calcium,Total 9.9 mg/dL (8.5-10.1); Chloride 95 mmol/L (98-107); Creatinine, Serum 0.71 mg/dL (0.55-1.02); EST Glomerular Filtration Rate 86 mL/min (>60); Est Glom Filt Rate - Afr Amer 104 mL/min (>60); Estimated Creatinine Clearance 74.72 ml/min; Glucose 132 mg/dL (74-106); Potassium 3.9 mmol/L (3.5-5.1); Sodium Level 139 mmol/L (136-145); Troponin-I HS (w/2H Reflex) 11 pg/mL (3.0-54.0)
[2023-12-01 12:20] LABS: Color, Urine Yellow (Yellow); Glucose, Dipstick Normal (Normal); Ketone-Dipstick Negative (Negative); Leukocyte Esterase-Dipstick 25 /ul (Negative); Nitrite-Dipstick Negative (Negative); Occult Blood-Urine 10 /ul (Negative); Protein-Dipstick 30 mg/dl (Negative); Urine Bilirubin Dipstick Negative (Negative); Urine Clarity Sl. Cloudy (Clear); Urine Urobilinogen 4 mg/dl (Normal); Urine pH 6.5 (5.0 - 8.0)
[2023-12-01 12:24] LABS: Lactic Acid 1.6 mmol/L (0.4-1.9)
[2023-12-01 12:29] LABS: Bacteria 3+ /hpf (None Seen); Squamous Epithelial Cells - UA 0-5 SEEN /hpf (5-10)
[2023-12-01 12:30] LABS: Amorphous Sediment 1+; Red Blood Cells-Urine 0-5 SEEN /hpf (0-5); White Blood Cells 0-5 SEEN /hpf (0-5)
[2023-12-01] MEDS: Piperacil/Tazobactam 3.375 GM in 0.9% Normal Saline (50mL MB+) 50 ML IV (12:32)
[2023-12-01 12:35] LABS: BNP,B-Type NATRIURETIC PEPTIDE 312.3 pg/mL (0-100)
--- NOTE | 2023-12-01 12:52 | PCM.HP.STD ---
HPI - General General Date of Admission: 12/01/23 Date of Service: 12/01/23 HPI Narrative GUNNER BAKER, is a 73 F with a PMH as outlined who presents via the ED with a complaint of shortness of breath which ahd been going on for a few days prior to admission. She was noted to have low oxygen levels at home. She doesnt wear oxygen at home. Family noted that her oxygen sats were in the 70s. Family increased her home lasix dose at home and initially improved, but she was subsequently noted to be hypoxic again. She also had a cough which was productive of yellowish sputum, but denied any fever or chills, palpitations, dizziness, nausea, vomiting or any other symptoms. Review of systems was otherwise negative. She said she had RSV 2 years ago and was discharged home with 2L of oxygen. She said she still had some of the oxygen at home and so she has been using it for her shortness of breath. Vitals in the ED were BP of 151/91, HI of 89, RR of 22 and temp of 98.9F. She was saturating at 99% on 4L of oxygen. CBC showed hb of 10.7, wbc of 17.4 and platelets of 121. Chemistry showed sodium of 139, potassium of 3.9 and bicarb of 39. Cr was 0.71.BNP was 312.3. Urine tox showed 3+ bactereia and 25 leucocyte esterase. CXR showed a right lower lobe pneumonia. She is being admitted to be managed for hypoxia due to right middle lobe pneumonia. She was started on IV vancomycin and zosyn in the ED. FORMERLY [facility] Medical History (Updated 12/01/23 @ 14:44 by Annalisa Paul) Non-smoker CPAP (continuous positive airway pressure) dependence On home oxygen therapy Atrial fibrillation Hypertension Asthma Depression Atrial fibrillation with RVR Anticoagulant long-term use Obstructive sleep apnea Congestive heart failure (CHF) Dyslipidemia HTN (hypertension) Paroxysmal atrial fibrillation Morbid obesity with body mass index of 50.0-59.9 in adult Home Medications ?Medication ?Instructions ?Recorded ?Last Taken ?Type furosemide 40 mg tablet 40 mg PO BID diuretic 10/27/13 07/14/16 History sertraline 50 mg tablet 50 mg PO QHS mental health 10/27/13 07/13/16 History digoxin 125 mcg (0.125 mg) tablet 125 mcg PO DAILY heart rate 01/24/16 07/14/16 History (Digox) lisinopril 10 mg tablet 20 mg PO DAILY blood pressure 01/24/16 07/14/16 History metoprolol tartrate 50 mg tablet 100 mg PO BID blood pressure 01/24/16 07/14/16 History potassium chloride 20 mEq 20 meq PO DAILY supplement 01/24/16 07/14/16 History tablet,extended release(part/cryst) (Klor-Con M) atorvastatin 10 mg tablet 10 mg PO QHS cholesterol 07/14/16 07/13/16 History apixaban 5 mg tablet (Eliquis) 5 mg PO BID blood thinner 01/18/22 Unknown History albuterol sulfate 0.63 mg/3 mL 0.63 mg (3 mL) inhalation Q4H PRN 01/22/22 Unknown Rx solution for nebulization shortness of breath or wheezing #75 mL guaifenesin 1,200 mg tablet, 1,200 mg PO BID #10 tabs 01/22/22 Unknown Rx extended release 12 hr (Mucus Relief ER) Allergy/AdvReac Type Severity Reaction Status Date / Time Tetanus Vaccines and Toxoid Allergy Unknown Verified 12/01/23 11:11 (Tetanus Vaccines & Toxoid) Family History Grandmother Breast cancer Father CVA (cerebral vascular accident) Surgical History H/O oophorectomy History of appendectomy Social History household members: children and none housing: house number of children: 2 current occupational status: retired pets and animals: Yes (2 dogs/2 cats) Smoking Status: Never smoker alcohol intake: never substance use type: does not use ROS Constitutional Constitutional: Reports chills, fatigue, malaise and weakness; Denies anorexia or fever(s) Eyes Eyes: Denies change in vision ENT HEENT: Denies dysphagia, headache(s), sinus pressure or sore throat Cardiovascular Cardiovascular: Denies chest pain, dyspnea on exertion, edema, lightheadedness, orthopnea, palpitations, paroxysmal nocturnal dyspnea, rapid heart rate or syncope Respiratory/Chest Respiratory/Chest: Reports cough, dyspnea, productive cough, shortness of breath at rest and shortness of breath with exertion; Denies hemoptysis or wheezing Gastrointestinal Gastrointestinal: Denies abdominal pain, constipation, diarrhea, melena, nausea or vomiting Genitourinary Genitourinary: Denies dysuria Neurologic Neurologic: Denies confusion, dizziness, focal weakness, headache(s) or numbness Psychiatric Psychiatric: Denies anxiety or depression Vital Signs Vital Signs Vital Signs: 12/01/23 11:08 12/01/23 11:11 12/01/23 11:11 Temperature 97.8 F 98.9 F Temperature Source Temporal Oral Pulse Rate 97 89 Respiratory Rate 18 25 H Respiratory Effort Short of Breath Respiratory Depth Shallow Respiratory Pattern Tachypnea Blood Pressure 118/82 H 162/99 H Blood Pressure Mean 94 120 Pulse Ox 98 97 Oxygen Delivery Method Nasal Cannula Nasal Cannula Nasal Cannula Oxygen Flow Rate (L/min) 3 3 12/01/23 11:20 12/01/23 12:11 Temperature 98.9 F Temperature Source Oral Pulse Rate 89 Respiratory Rate 22 H Respiratory Effort Respiratory Depth Respiratory Pattern Blood Pressure 151/91 H Blood Pressure Mean 111 Pulse Ox 99 Oxygen Delivery Method Nasal Cannula Nasal Cannula Oxygen Flow Rate (L/min) 3 4 Weight Weight: 259 lb 14.8 oz Body Mass Index (BMI) 52.4 Physical Exam Const alert, oriented x3 and no apparent distress Constitutional Narrative: frail, obese General Appearance: cooperative HEENT normocephalic, head/scalp atraumatic, hearing grossly normal bilaterally, moist oral mucous membranes and oropharynx normal Mouth: oral and palatal mucosa normal Eyes PERRL, EOMs intact bilaterally and conjunctivae normal Neck no lymphadenopathy and supple Resp Resp Narrative: diminished breath sounds bibasally, markedly reduced breath sounds in the right middle lobe. Cardio regular rate, regular rhythm, S1 normal heart sound, S2 normal heart sound and no murmurs GI normal to inspection, nondistended, normoactive bowel sounds, soft to palpation, non-tender and non-distended Extremity normal to inspection, full ROM and no clubbing, cyanosis or edema Neuro oriented x3, CN's II-XII intact bilaterally, moves all extremities and no focal motor deficits Sensorium / Orientation: awake and alert Motor Exam: strength 5/5 throughout Psych affect normal Results Lab / Micro Data 12/01/23 11:36 12/01/23 11:36 Labs: Laboratory Results - last 24 hr 12/01/23 11:36: WBC 17.4 H, RBC 3.92 L, Hgb 10.7 L, Hct 34.5 L, MCV 88.0, MCH 27.3, MCHC 31.0 L, RDW Std Deviation 47.0 H, RDW Coeff of Giles 14.6, Plt Count 121 L, MPV 12.5 H, Immature Gran % (Auto) 1.100 H, Neut % (Auto) 66.2, Lymph % (Auto) 8.5 L, [place] % (Auto) 24.0 H, Eos % (Auto) 0.1, Baso % (Auto) 0.1, Absolute Neuts (auto) 11.5 H, Absolute Lymphs (auto) 1.49, Nucleated RBC % 0, Differential Comment COMMENT, Diff Path Review July, Sodium 139, Potassium 3.9, Chloride 95 L, Carbon Dioxide 39.0 H, Anion Gap 5, BUN 14, Creatinine 0.71, Estim Creat Clear Calc 74.72, Est GFR (MDRD) Af Amer 104, Est GFR (MDRD) Non-Af 86, BUN/Creatinine Ratio 19.7, Glucose 132 H, Lactic Acid 1.6, Calcium 9.9, Troponin I High Sens 11, B-Natriuretic Peptide 312.3 H 12/01/23 11:56: Urine Color Yellow, Urine Clarity Sl. Cloudy, Urine pH 6.5, Ur Specific [place] 1.010, Urine Protein 30 H, Urine Glucose (UA) Normal, Urine Ketones Negative, Urine Occult Blood 10 H, Urine Nitrite Negative, Urine Bilirubin Negative, Urine Urobilinogen 4 H, Ur Leukocyte Esterase 25 H, Urine RBC 0-5 SEEN, Urine WBC 0-5 SEEN, Ur Squamous Epith Cells 0-5 SEEN, Amorphous Sediment 1+, Urine Bacteria 3+, Urine Mucus 0 SEEN Imaging Radiology Impression Chest X-Ray 12/01/23 12:00 IMPRESSION: Right middle lobe consolidation. Radiographic follow-up recommended. Electronically Signed: Aris Dubon MD at 12:12 EDT , Assessment & Plan Assessment/Plan (1) Acute respiratory failure with hypoxia: PLAN: Plan #Hypoxia due to right middle lobe pneumonia and covid 19 infection admit to med surg felt short of breath at home and was saturating in the 70s CXR showed right middle lobe pneumonia started on IV vancomycin and zosyn; will conitnue with IV ceftriaxone and azithromycin. urine for strep and legionella get sputum cultures and blood cultures. RSV and flu were negative but covid was positive. will also start on decadron adn remdesivir in light of hypoxia and covid. #Afib: on digoxin and metoprolol. On eliquis. #Depression: on sertraline. #HFpEF: not in exacerbation. on lasix PO 40mg bid. Also on metoprolol #Hypertension: on metoprolol and lisinopril #Super morbid obesity: BMI is 51. Complicates acute care, expected recovery and prognosis. DVT prophylaxis: on eliquis. Code status: full code Patient counseled extensively about different types of CODE STATUS including full code, DNR CCA and DNR CCA. Patient elects to be full code. Total [id number] time 17 minutes. Charges/Coding Visit Charges Inpatient E&M: 97946 Init Hosp L3 Procedures Hospitalists Procedures: 01086 Advncd Care Plan 30 Min
[2023-12-01] MEDS: Vancomycin HCl 1,750 MG in 0.9% Normal Saline (500mL Bag) 500 ML 250 MG IV (12:53)
--- NOTE | 2023-12-01 13:06 | NURSING ---
MED SURG KORAM PNEUMONIA, HYPOXIA
[2023-12-01 13:47] LABS: Reflex Troponin-HS? (from REC) Y
[2023-12-01] MEDS: dexAMETHasone 10 MG/ML Vial 6 MG IV (18:47)
[2023-12-01] MEDS: Remdesivir 200 MG in 0.9% Normal Saline (250mL Bag) 210 ML 250 MG IV (18:49)
[2023-12-01] MEDS: Furosemide 40 MG Tablet PO (18:49)
[2023-12-01 19:34] LABS: Troponin-I HS 12 pg/mL (3.0-54.0)
[2023-12-01 19:57] LABS: Alkaline Phosphatase 73 U/L (45-117)
[2023-12-01] MEDS: guaiFENesin 1,200 MG Tablet 1200 MG PO (22:38)
[2023-12-01] MEDS: APIXABAN 5 MG TABLET PO (22:38)
[2023-12-01] MEDS: Metoprolol Tartrate 100 MG Tablet PO (22:38)
[2023-12-01] MEDS: Atorvastatin Calcium 10 MG Tablet PO (22:38)
[2023-12-01] MEDS: Sertraline 50 MG Tablet PO (22:38)
[2023-12-02] VITALS (7 sets, daily range): BP systolic 133–149; BP diastolic 61–84; PULSE 62–105; RESP 16–20; TEMP 36.4–37.2; O2SAT 96–100
[2023-12-02 06:37] LABS: Absolute Lymphocyte Count 0.76 X10^3/uL (0.83-4.51); Absolute Neutrophil Count 9.6 X10^3/uL (2.0-7.7); Basophil# 0.02 X10^3/uL; Basophil% 0.2 % (0-1); Hematocrit 34.5 % (37-47); Hemoglobin 10.5 g/dL (12.0-15.0); Lymphocyte # 0.76 X10^3/ul (0.83-4.51); Lymphocyte % 6.1 % (19-41); Mean Corp Hgb Conc 30.4 g/dL (32-36); Mean Corpuscular Hgb 27.3 pg (27.0-32.0); Mean Corpuscular Volume 89.6 fL (81-99); Monocyte# 1.87 X10^3/uL; NRBC Flagged by Analyzer 0 % (0-5); Neutrophil # 9.57 X10^3/uL (2.7-7.7); POSITIVE COUNT YES; POSITIVE DIFFERENTIAL YES; Platelet Count 63 K/mm3 (150-450); RBC Distribution Width CV 14.9 % (11.6-14.6); RBC Distribution Width SD 47.4 fl (35.1-43.9); Red Blood Count 3.85 M/mm3 (4.2-5.4); White Blood Count 12.4 K/mm3 (4.4-11.0)
[2023-12-02 06:42] LABS: Differential Indicated SCAN CRITERIA MET
[2023-12-02 07:55] LABS: ALB/GLOB Ratio 0.9 RATIO (0.9-2.4); AST(SGOT) 7 U/L (15-37); Alanine Aminotransfer ALT/SGPT 18 U/L (13-56); Albumin, Serum 3.2 g/dL (3.2-5.0); Alkaline Phosphatase 82 U/L (45-117); Anion Gap 3 (5-15); BUN 16 mg/dL (7-18); BUN/Creat Ratio 25.8 RATIO (10-20); Calcium,Total 9.2 mg/dL (8.5-10.1); Chloride 100 mmol/L (98-107); Creatinine, Serum 0.62 mg/dL (0.55-1.02); EST Glomerular Filtration Rate 100 mL/min (>60); Est Glom Filt Rate - Afr Amer 121 mL/min (>60); Estimated Creatinine Clearance 73.39 ml/min; Globulin 3.5 g/dL (2.2-4.2); Glucose 132 mg/dL (74-106); Potassium 3.9 mmol/L (3.5-5.1); Protein, Total 6.7 g/dL (6.4-8.2); Sodium Level 141 mmol/L (136-145)
[2023-12-02] MEDS: Furosemide 40 MG Tablet PO ×2 (08:57→17:58)
[2023-12-02] MEDS: Remdesivir 100 MG in 0.9% Normal Saline (250mL Bag) 230 ML 250 MG IV (08:57)
[2023-12-02] MEDS: Ceftriaxone 1 GM/50 ML BAG IV (08:57)
[2023-12-02] MEDS: Lisinopril 20 MG Tablet PO (08:58)
[2023-12-02] MEDS: dexAMETHasone 10 MG/ML Vial 6 MG IV (08:58)
[2023-12-02] MEDS: Potassium Chloride Oral Tablet 20 MEQ PO (08:58)
[2023-12-02] MEDS: APIXABAN 5 MG TABLET PO ×2 (08:58→21:39)
[2023-12-02] MEDS: Metoprolol Tartrate 100 MG Tablet PO ×2 (08:58→21:38)
[2023-12-02] MEDS: guaiFENesin 1,200 MG Tablet 1200 MG PO ×2 (08:59→21:38)
[2023-12-02 10:34] LABS: Differential Comment SCANNED; Platelet Estimate MOD DEC (ADEQ)
[2023-12-02] MEDS: Azithromycin 500 MG in Dextrose 5%-Water (250mL Bag) 250 ML 250 MG IV (10:50)
--- NOTE | 2023-12-02 11:03 | PN_ITS ---
Subjective Subjective Patient seen and examined. She says she felt better today. She has no complaints. She was down to 2 L of oxygen. Review of systems otherwise negative. WBC is 12.4 today. She has remained hemodynamically stable. Objective Data Objective Data Vital Signs: Vital Signs Temp Pulse Resp BP Pulse Ox O2 Del Method O2 Flow Rate 97.6 F L 87 20 H 142/61 H 100 Nasal Cannula 2 12/02/23 08:51 12/02/23 08:58 12/02/23 08:51 12/02/23 08:51 12/02/23 08:51 12/02/23 10:00 12/02/23 10:00 Oxygen Flow Rate (L/min) 2 Oxygen Delivery Method Nasal Cannula Weight: 252 lb 10.396 oz Body Mass Index (BMI) 51.0 Intake & Output: Intake and Output for Last 24 Hours 11/30/23 12/01/23 12/02/23 23:59 23:59 23:59 Intake Total 1015 / 1015 680 / 680 Output Total 200 / 200 500 / 500 Balance 815 / 815 180 / 180 Lab / Micro Data 12/02/23 06:20 12/02/23 07:27 Labs: Laboratory Results - last 24 hr 12/01/23 11:36: WBC 17.4 H, RBC 3.92 L, Hgb 10.7 L, Hct 34.5 L, MCV 88.0, MCH 27.3, MCHC 31.0 L, RDW Std Deviation 47.0 H, RDW Coeff of [place]iles 14.6, Plt Count 121 L, MPV 12.5 H, Immature Gran % (Auto) 1.100 H, Neut % (Auto) 66.2, Lymph % (Auto) 8.5 L, [place] % (Auto) 24.0 H, Eos % (Auto) 0.1, Baso % (Auto) 0.1, A bsolute Neuts (auto) 11.5 H, Absolute Lymphs (auto) 1.49, Nucleated RBC % 0, Differential Comment COMMENT, Diff Path Review July foll, Sodium 139, Potassium 3.9, Chloride 95 L, Carbon Dioxide 39.0 H, Anion Gap 5, BUN 14, Creatinine 0.71, Estim Creat Clear Calc 74.72, Est GFR (MDRD) Af Amer 104, Est GFR (MDRD) Non-Af 86, BUN/Creatinine Ratio 19.7, Glucose 132 H, Lactic Acid 1.6, Calcium 9.9, Troponin I High Sens 11, B-Natriuretic Peptide 312.3 H 12/01/23 11:56: Urine Color Yellow, Urine Clarity Sl. Cloudy, Urine pH 6.5, Ur Specific [place] 1.010, Urine Protein 30 H, Urine Glucose (UA) Normal, Urine Ketones Negative, Urine Occult Blood 10 H, Urine Nitrite Negative, Urine Bilirubin Negative, Urine Urobilinogen 4 H, Ur Leukocyte Esterase 25 H, Urine RBC 0-5 SEEN, Urine WBC 0-5 SEEN, Ur Squamous Epith Cells 0-5 SEEN, Amorphous Sediment 1+, Urine Bacteria 3+, Urine Mucus 0 SEEN 12/01/23 19:00: Alkaline Phosphatase 73, Troponin I High Sens 12 12/02/23 06:20: WBC 12.4 H, RBC 3.85 L, Hgb 10.5 L, Hct 34.5 L, MCV 89.6, MCH 27.3, MCHC 30.4 L, RDW Std Deviation 47.4 H, RDW Coeff of Giles 14.9 H, Plt Count 63 L, MPV TNP, Immature Gran % (Auto) 1.700 H, Neut % (Auto) 77.0 H, Lymph % (Auto) 6.1 L, [place] % (Auto) 15.0 H, Eos % (Auto) 0.0, Baso % (Auto) 0.2, A bsolute Neuts (auto) 9.6 H, Absolute Lymphs (auto) 0.76 L, Nucleated RBC % 0, Differential Comment SCANNED, Diff Path Review July an[place], Platelet Estimate MOD DEC, Sodium Cancelled, Potassium Cancelled, Chloride Cancelled, Carbon Dioxide Cancelled, Anion Gap Cancelled, BUN Cancelled, Creatinine Cancelled, Estim Creat Clear Calc Cancelled, Est GFR (MDRD) Af Amer Cancelled, Est GFR (MDRD) Non-Af Cancelled, BUN/Creatinine Ratio Cancelled, Glucose Cancelled, Calcium Cancelled, Total Bilirubin Cancelled, AST Cancelled, ALT Cancelled, Alkaline Phosphatase Cancelled, Total Protein Cancelled, Albumin Cancelled, Globulin Cancelled, Albumin/Globulin Ratio Cancelled 12/02/23 07:27: Sodium 141, Potassium 3.9, Chloride 100, Carbon Dioxide 38.0 H, Anion Gap 3 L, BUN 16, Creatinine 0.62, Estim Creat Clear Calc 73.39, Est GFR (MDRD) Af Amer 121, Est GFR (MDRD) Non-Af 100, BUN/Creatinine Ratio 25.8 H, G lucose 132 H, Calcium 9.2, Total Bilirubin 1.80 H, AST 7 L, ALT 18, Alkaline Phosphatase 82, Total Protein 6.7, Albumin 3.2, Globulin 3.5, Albumin/Globulin Ratio 0.9 Micro: Microbiology 12/01/23 18:22 Urine, Clean Catch Legionella Antigen - Final 12/01/23 18:22 Urine, Clean Catch Streptococcus pneumoniae Antigen (M - Final 12/01/23 11:36 Mucosa - Nasopharyngeal SARS-CoV-2, Influenza & RSV (PCR) - Final Radiography Diagnostic Testing: Radiology Impression Chest X-Ray 12/01/23 12:00 IMPRESSION: Right middle lobe consolidation. Radiographic follow-up recommended. Electronically Signed: Aris Dubon MD at 12:12 EDT , Physical Exam Const alert, oriented x3 and no apparent distress Constitutional Narrative: frail, obese General Appearance: cooperative HEENT normocephalic, head/scalp atraumatic, hearing grossly normal bilaterally, moist oral mucous membranes and oropharynx normal Eyes PERRL, EOMs intact bilaterally and conjunctivae normal Neck no lymphadenopathy and supple Resp Resp Narrative: diminished breath sounds bibasally, markedly reduced breath sounds in the right middle lobe. on 2L of oxygen by nasal canula Cardio regular rate, regular rhythm, S1 normal heart sound, S2 normal heart sound and no murmurs GI normal to inspection, nondistended, normoactive bowel sounds, soft to palpation, non-tender and non-distended Extremity normal to inspection, full ROM and no clubbing, cyanosis or edema Neuro oriented x3, CN's II-XII intact bilaterally, moves all extremities and no focal motor deficits Sensorium / Orientation: awake and alert Motor Exam: strength 5/5 throughout Psych thought process normal, cooperative and affect normal Appearance: appropriate Assessment & Plan Assessment/Plan (1) Acute respiratory failure with hypoxia: PLAN: Plan #Hypoxia due to right middle lobe pneumonia and covid 19 infection * now on 2L of oxygen. Feels much better today * CXR showed right middle lobe pneumonia * on IV ceftriaxone and azithromycin * urine for strep and legionella negative * get sputum cultures and blood cultures. * RSV and flu were negative but covid was positive. * will also start on decadron and remdesivir in light of hypoxia and covid. * #Afib: on digoxin and metoprolol. On eliquis. #THrombocytopenia * Platelets were 121 yesterday, down to 63 today. Patient has not received any heparin products. * May be due to the covid. On eliquis for afib. * will monitor platelets closely * #Elevated bilirubin. * total bilirubin is 1.8 today. Baseline from 2021 was 1.1. * etiology is unclear. May be due to covid * will monitor and trend liver enzymes * #Depression: on sertraline. #HFpEF: not in exacerbation. on lasix PO 40mg bid. Also on metoprolol #Hypertension: on metoprolol and lisinopril #Super morbid obesity: BMI is 51. Complicates acute care, expected recovery and prognosis. DVT prophylaxis: on eliquis. Code status: full code Charges/Coding Visit Charges Inpatient E&M: 69034 Subs Hosp L2
[2023-12-02 15:07] LABS: Pathologist Review Reviewed
--- NOTE | 2023-12-02 16:22 | CASEMGMT ---
BELLA ROWE Assessment: Face to Face with pt for initial transition planning/care coordination assessment. BELLA ROWE introduced self and role at [facility], pt voices understanding and consents to assessment. Pt is A&O x4 and answers all questions appropriately at this time. Care providers, pharmacy, and demographics verified/updated. Admitting Dx: hypoxia, CAP Strata Score: 1 PCP:Maria Victoria Specialists:Denies Preferred Pharmacy:[facility] Insurance: [facility] Dual complete, [facility] Prescription Benefit: yes LNOK: Rhiannon Young, dtr Living Arrangements: Pt lives with dtr, son in law and grandchildren in a single story home with 2 steps to enter through garage with grab bar. Pt reports she is I in ADLs and denies concerns at home. Transportation: Pt drives self and denies concerns with transportation. DME:oxygen through [employer], CPAP, pox but it is broken, cane, WW, shower chair, portable concentrator and tanks, nebulizer HHC/SNF: Denies hx of Pt states no concerns with going home at time of dc. Pt states her dtr is a nurse. No PT recommended on eval. Pt states she cannot afford a pox. BELLA ROWE to give one prior to dc. Pt denies homegoing needs. 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 Pt states no further concerns/needs. CM to follow. Advised pt to ask CM if any further question/concerns/needs arise, voices understanding. Pt Goal: Home Plan: Home follow for change in oxygen rx, give pt pox. Rosanna BLANCO CM
[2023-12-02] MEDS: Sertraline 50 MG Tablet PO (21:38)
[2023-12-02] MEDS: 0.9% Saline Lock 10 ML Syringe IV (21:38)
[2023-12-02] MEDS: Atorvastatin Calcium 10 MG Tablet PO (21:39)
[2023-12-03 04:30] VITALS: BP 102/58; PULSE 70; RESP 18; TEMP 36.6; O2SAT 94
[2023-12-03] MEDS: 0.9% Saline Lock 10 ML Syringe IV ×2 (04:38→08:35)
[2023-12-03 06:17] LABS: Absolute Lymphocyte Count 1.68 X10^3/uL (0.83-4.51); Absolute Neutrophil Count 10.9 X10^3/uL (2.0-7.7); Basophil# 0.04 X10^3/uL; Basophil% 0.2 % (0-1); Hemoglobin 9.7 g/dL (12.0-15.0); Lymphocyte # 1.68 X10^3/ul (0.83-4.51); Lymphocyte % 9.9 % (19-41); Mean Corp Hgb Conc 30.3 g/dL (32-36); Mean Corpuscular Hgb 27.2 pg (27.0-32.0); Mean Corpuscular Volume 89.9 fL (81-99); Monocyte# 4.07 X10^3/uL; NRBC Flagged by Analyzer 0 % (0-5); Neutrophil # 10.85 X10^3/uL (2.7-7.7); Neutrophil % 64.1 % (47-70); POSITIVE DIFFERENTIAL YES; Platelet Count 106 K/mm3 (150-450); RBC Distribution Width CV 14.6 % (11.6-14.6); RBC Distribution Width SD 47.6 fl (35.1-43.9); Red Blood Count 3.56 M/mm3 (4.2-5.4)
[2023-12-03 06:33] LABS: Differential Indicated SCAN CRITERIA MET
[2023-12-03 07:00] LABS: Anion Gap 6 (5-15); BUN 20 mg/dL (7-18); BUN/Creat Ratio 30.6 RATIO (10-20); Chloride 99 mmol/L (98-107); Creatinine, Serum 0.65 mg/dL (0.55-1.02); EST Glomerular Filtration Rate 95 mL/min (>60); Est Glom Filt Rate - Afr Amer 114 mL/min (>60); Estimated Creatinine Clearance 73.39 ml/min; Glucose 118 mg/dL (74-106); Potassium 3.7 mmol/L (3.5-5.1); Sodium Level 140 mmol/L (136-145)
[2023-12-03 07:41] VITALS: O2SAT 95
[2023-12-03] MEDS: Ceftriaxone 1 GM/50 ML BAG IV (08:32)
[2023-12-03] MEDS: Azithromycin 500 MG in Dextrose 5%-Water (250mL Bag) 250 ML 250 MG IV (08:32)
[2023-12-03 08:33] VITALS: PULSE 93
[2023-12-03] MEDS: Lisinopril 20 MG Tablet PO (08:33)
[2023-12-03] MEDS: Potassium Chloride Oral Tablet 20 MEQ PO (08:33)
[2023-12-03] MEDS: Furosemide 40 MG Tablet PO (08:33)
[2023-12-03] MEDS: guaiFENesin 1,200 MG Tablet 1200 MG PO (08:33)
[2023-12-03] MEDS: Metoprolol Tartrate 100 MG Tablet PO (08:33)
[2023-12-03] MEDS: APIXABAN 5 MG TABLET PO (08:35)
[2023-12-03 08:36] VITALS: BP 120/63; PULSE 91; RESP 16; TEMP 36.5; O2SAT 95
[2023-12-03] MEDS: Remdesivir 100 MG in 0.9% Normal Saline (250mL Bag) 230 ML 250 MG IV (10:16)
[2023-12-03] MEDS: dexAMETHasone 4 MG Tablet 6 MG PO (10:16)
[2023-12-03] MEDS: Fluconazole 100 MG Tablet PO (10:16)
[2023-12-03 10:43] VITALS: O2SAT 87; O2SAT 92; O2SAT 96
--- NOTE | 2023-12-03 11:07 | DCINST_ITS ---
Discharge Instructions Diet Discharge Diet: Low fat / Low cholesterol Activity Discharge Activity: Return to Normal Activity Weight Bearing Status: Weight bearing as tolerated Dressing / Incision Call your doctor if you observe: Fever of 101 or Higher, Shortness of breath, Dizziness, Swelling in the ankles and Chest pain Follow Up Care Test Results: Test results from this visit will be discussed in further detail at your follow- up appointment, if applicable. Discharge Plan Admission Admit Date/Time: 12/01/23 13:05 Primary Reason for Your Visit: hypoxia due to community acquired pneumonia, covid Attending Provider: Luna Bustamante Primary Care Provider: Elidia Irene Instructions Patient Instructions: Coronavirus Disease 2019 (COVID-19): Overview, Coronavirus Disease 2019 (COVID-19): Caring for Yourself or Others, ED Pneumonia (Adult) Additional Instructions / Restrictions: use oxygen 2L as needed for shortness of breath Discharge Orders/Prescriptions Prescriptions: New fluconazole 200 mg tablet 200 mg PO DAILY Qty: 7 0RF amoxicillin-pot clavulanate 875-125 mg tablet 1 tab PO BID Qty: 14 0RF dexamethasone 6 mg tablet 6 mg PO DAILY Qty: 7 0RF Continued furosemide 40 MG tablet 40 mg PO BID Patient Comments: Water pill sertraline 50 MG tablet 50 mg PO QHS Patient Comments: Anti-depressant/anxiety potassium chloride [Klor-Con M20] 20 MEQ tablet 20 meq PO DAILY Patient Comments: SUPPLEMENT lisinopril 10 MG tablet 20 mg PO DAILY Patient Comments: BLOOD PRESSURE/HEART digoxin [Digox] 125 MCG tablet 125 mcg PO DAILY Patient Comments: HEART metoprolol tartrate 50 MG tablet 100 mg PO BID Patient Comments: Heart rate/blood pressure atorvastatin 10 MG tablet 10 mg PO QHS Patient Comments: CHOLESTEROL Eliquis 5 mg tablet 5 mg PO BID guaifenesin [Mucus Relief ER] 1,200 mg Tablet Extended Release 12hr 1,200 mg PO BID Qty: 10 0RF albuterol sulfate 0.63 mg/3 mL solution for nebulization 0.63 mg inhalation Q4H PRN (Reason: shortness of breath or wheezing) Qty: 75 0RF Referrals / Follow Up: Kory Ibarra DO [Non-Staff] - Within 1 Week Elidia Irene DO [Primary Care Provider] - Disposition Disposition (needs filled in before D/C Order can be placed): Home, Self Care
--- NOTE | 2023-12-03 11:10 | DS.PCM_ITS ---
Providers Date of Admission: 12/01/23 Date of Discharge: 12/03/23 Primary Care Physician: Dr. Elidia Irene, DO Reason For Visit: HYPOXIA, COMMUNITY ACQUIRED PNEUMONIA Diagnosis Discharge Diagnosis (1) Acute respiratory failure with hypoxia: Status: Acute Code(s): J96.01 - Acute respiratory failure with hypoxia Plan #Hypoxia due to right middle lobe pneumonia and covid 19 infection * now on 2L of oxygen. Feels much better today * CXR showed right middle lobe pneumonia * on IV ceftriaxone and azithromycin * urine for strep and legionella negative * get sputum cultures and blood cultures. * RSV and flu were negative but covid was positive. * will also start on decadron and remdesivir in light of hypoxia and covid. * #Afib: on digoxin and metoprolol. On eliquis. #THrombocytopenia * Platelets were 121 yesterday, down to 63 today. Patient has not received any heparin products. * May be due to the covid. On eliquis for afib. * will monitor platelets closely * #Elevated bilirubin. * total bilirubin is 1.8 today. Baseline from 2021 was 1.1. * etiology is unclear. May be due to covid * will monitor and trend liver enzymes * #Depression: on sertraline. #HFpEF: not in exacerbation. on lasix PO 40mg bid. Also on metoprolol #Hypertension: on metoprolol and lisinopril #Super morbid obesity: BMI is 51. Complicates acute care, expected recovery and prognosis. DVT prophylaxis: on eliquis. Code status: full code Medications at Discharge Home Medications furosemide 40 mg tablet 40 mg PO BID diuretic 10/27/13 sertraline 50 mg tablet 50 mg PO QHS mental health 10/27/13 digoxin 125 mcg (0.125 mg) tablet (Digox) 125 mcg PO DAILY heart rate 01/24/16 lisinopril 10 mg tablet 20 mg PO DAILY blood pressure 01/24/16 metoprolol tartrate 50 mg tablet 100 mg PO BID blood pressure 01/24/16 potassium chloride 20 mEq tablet,extended release(part/cryst) (Klor-Con M) 20 meq PO DAILY supplement 01/24/16 atorvastatin 10 mg tablet 10 mg PO QHS cholesterol 07/14/16 apixaban 5 mg tablet (Eliquis) 5 mg PO BID blood thinner 01/18/22 albuterol sulfate 0.63 mg/3 mL solution for nebulization 0.63 mg (3 mL) inhalation Q4H PRN shortness of breath or wheezing #75 mL 01/22/22 guaifenesin 1,200 mg tablet, extended release 12 hr (Mucus Relief ER) 1,200 mg PO BID cough #10 tabs 01/22/22 amoxicillin 875 mg-potassium clavulanate 125 mg tablet 1 tab PO BID #14 tabs 12/03/23 dexamethasone 6 mg tablet 6 mg PO DAILY #7 tabs 12/03/23 fluconazole 200 mg tablet 200 mg PO DAILY #7 tabs 12/03/23 Hospital Course Operations None Procedures None Summary of Care Provided Minutes Spent on Discharge: 55 Hospital Course: GUNNER BAKER, is a 73 F with a PMH as outlined who presents via the ED with a complaint of shortness of breath which ahd been going on for a few days prior to admission. She was noted to have low oxygen levels at home. She doesnt wear oxygen at home. Family noted that her oxygen sats were in the 70s. Family increased her home lasix dose at home and initially improved, but she was subsequently noted to be hypoxic again. She also had a cough which was productive of yellowish sputum, but denied any fever or chills, palpitations, dizziness, nausea, vomiting or any other symptoms. Review of systems was otherwise negative. She said she had RSV 2 years ago and was discharged home with 2L of oxygen. She said she still had some of the oxygen at home and so she had been using it for her shortness of breath. Vitals in the ED were BP of 151/91, IL of 89, RR of 22 and temp of 98.9F. She was saturating at 99% on 4L of oxygen. CBC showed hb of 10.7, wbc of 17.4 and platelets of 121. Chemistry showed sodium of 139, potassium of 3.9 and bicarb of 39. Cr was 0.71.BNP was 312.3. Urine tox showed 3+ bactereia and 25 leucocyte esterase. CXR showed a right lower lobe pneumonia. She was admitted to be managed for hypoxia due to right middle lobe pneumonia. She was started on IV vancomycin and zosyn in the ED. COVID test done was positive. She was also placed on remdesivir and Decadron for COVID. Her shortness of breath improved and she felt much better. She had walking pulse ox which showed that she required 2 L of oxygen. Her sputum cultures were positive for Streptococcus and yuliana. She felt much better after couple of days in the hospital. She remained stable and had walking pulse ox which showed that she still required 2 L of oxygen. She was discharged home on 2 L of oxygen on 12/03/2023. She was discharged with a prescription for p.o. Augmentin twice daily for 7 days as well as p.o. fluconazole 200 mg daily for 7 days. She is follow-up with her primary care doctor within 1 to 2 weeks. She was also discharged with a prescription for p.o. Decadron 6mg daily to complete a 10-day course. Patient seen and examined prior to discharge. She felt much better and had no complaints. She had an uneventful night. Review of systems otherwise negative. Labs and vitals reviewed. Home medication reviewed and reconciled. Physical Exam Const alert, oriented x3 and no apparent distress Constitutional Narrative: frail, obese General Appearance: cooperative, comfortable and well kempt Orientation / Consciousness: awake HEENT normocephalic, head/scalp atraumatic, hearing grossly normal bilaterally, moist oral mucous membranes and oropharynx normal Mouth: oral and palatal mucosa normal Eyes PERRL, EOMs intact bilaterally and conjunctivae normal Neck no lymphadenopathy and supple Resp Resp Narrative: mildly diminished breath sounds bibasally, no wheezes or crackles. On 2L of oxygen. Cardio regular rate, regular rhythm, S1 normal heart sound, S2 normal heart sound and no murmurs GI normal to inspection, nondistended, normoactive bowel sounds, soft to palpation, non-tender and non-distended Extremity normal to inspection, full ROM and no clubbing, cyanosis or edema Skin no rashes or lesions noted and no wounds Neuro oriented x3, CN's II-XII intact bilaterally, moves all extremities and no focal motor deficits Sensorium / Orientation: awake and alert Motor Exam: strength 5/5 throughout Psych thought process normal, cooperative and affect normal Appearance: appropriate Weight / BMI Weight Weight: 252 lb 10.396 oz Body Mass Index (BMI) 51.0 ABG / Lab / Microbiology Data 12/03/23 05:27 12/03/23 05:31 Laboratory: Laboratory Results - last 24 hr 12/01/23 11:36: Diff Path Review Reviewed 12/02/23 06:20: MPV TNP 12/03/23 05:27: WBC 17.0 H, RBC 3.56 L, Hgb 9.7 L, Hct 32.0 L, MCV 89.9, MCH 27.2, MCHC 30.3 L, RDW Std Deviation 47.6 H, RDW Coeff of Giles 14.6, Plt Count 106 L, MPV 13.0 H, Immature Gran % (Auto) 1.800 H, Neut % (Auto) 64.1, Lymph % (Auto) 9.9 L, [place] % (Auto) 24.0 H, Eos % (Auto) 0.0, Baso % (Auto) 0.2, A bsolute Neuts (auto) 10.9 H, Absolute Lymphs (auto) 1.68, Nucleated RBC % 0, Diff Path Review July12/03/23 05:31: Sodium 140, Potassium 3.7, Chloride 99, Carbon Dioxide 35.0 H, Anion Gap 6, BUN 20 H, Creatinine 0.65, Estim Creat Clear Calc 73.39, Est GFR (MDRD) Af Amer 114, Est GFR (MDRD) Non-Af 95, BUN/Creatinine Ratio 30.6 H, G lucose 118 H, Calcium 9.0 Microbiology: Microbiology 12/01/23 15:15 Sputum, Expectorated/Coughed Gram Stain - Final 12/01/23 15:15 Sputum, Expectorated/Coughed Respiratory Culture - Preliminary Presumptive C albicans Streptococcus pneumoniae 12/01/23 11:56 Urine, Clean Catch Urine Culture - Final Mixed Gram Pos & Gram Neg Org 12/01/23 11:56 Urine, Clean Catch Urine Culture - Final Presumptive E. coli 12/01/23 18:22 Urine, Clean Catch Legionella Antigen - Final 12/01/23 18:22 Urine, Clean Catch Streptococcus pneumoniae Antigen (M - Final 12/01/23 11:36 Mucosa - Nasopharyngeal SARS-CoV-2, Influenza & RSV (PCR) - Final D/C Instructions Discharge Diet: Low fat / Low cholesterol Discharge Activity: Return to Normal Activity Weight Bearing Status: Weight bearing as tolerated Call your doctor if you observe: Fever of 101 or Higher, Shortness of breath, Dizziness, Swelling in the ankles and Chest pain Meaningful Use Info Meaningful Use Meaningful Use Diagnoses (Choose all that apply): None applicable Ischemic Stroke Statin Dosing Therapy Reference: STATIN DOSE THERAPY REFERENCE: * Patients > 75 years receive moderate or high dose statin therapy. * Patients 75 years or YOUNGER should receive HIGH intensity statin dose unless contraindicated. You will be required to document reason for non-treatment if statin daily dose does not meet guidelines. HIGH DOSE STATIN THERAPY DAILY Atorvastatin > than or = to 40 mg Rosuvastatin > than or = to 20 mg Amlodipine + Atorvastatin > than or = to 2.5/40 mg Ezetimibe + Simvastatin 10/80 mg Simvastatin 80mg Discharge Plan Admission Admit Date/Time: 12/01/23 13:05 Primary Reason for Your Visit: hypoxia due to community acquired pneumonia, covid Attending Provider: Luna Bustamante Primary Care Provider: Elidia Irene Instructions Patient Instructions: Coronavirus Disease 2019 (COVID-19): Overview, Coronavirus Disease 2019 (COVID-19): Caring for Yourself or Others, ED Pneumonia (Adult) Additional Instructions / Restrictions: use oxygen 2L as needed for shortness of breath Discharge Orders/Prescriptions Prescriptions: New fluconazole 200 mg tablet 200 mg PO DAILY Qty: 7 0RF amoxicillin-pot clavulanate 875-125 mg tablet 1 tab PO BID Qty: 14 0RF dexamethasone 6 mg tablet 6 mg PO DAILY Qty: 7 0RF Continued furosemide 40 MG tablet 40 mg PO BID Patient Comments: Water pill sertraline 50 MG tablet 50 mg PO QHS Patient Comments: Anti-depressant/anxiety potassium chloride [Klor-Con M20] 20 MEQ tablet 20 meq PO DAILY Patient Comments: SUPPLEMENT lisinopril 10 MG tablet 20 mg PO DAILY Patient Comments: BLOOD PRESSURE/HEART digoxin [Digox] 125 MCG tablet 125 mcg PO DAILY Patient Comments: HEART metoprolol tartrate 50 MG tablet 100 mg PO BID Patient Comments: Heart rate/blood pressure atorvastatin 10 MG tablet 10 mg PO QHS Patient Comments: CHOLESTEROL Eliquis 5 mg tablet 5 mg PO BID guaifenesin [Mucus Relief ER] 1,200 mg Tablet Extended Release 12hr 1,200 mg PO BID Qty: 10 0RF albuterol sulfate 0.63 mg/3 mL solution for nebulization 0.63 mg inhalation Q4H PRN (Reason: shortness of breath or wheezing) Qty: 75 0RF Referrals / Follow Up: Kory Ibarra DO [Non-Staff] - Within 1 Week Elidia Irene DO [Primary Care Provider] - Disposition Disposition (needs filled in before D/C Order can be placed): Home, Self Care Charges/Coding Visit Charges Inpatient E&M: 55128 Disch Hosp >30min
--- NOTE | 2023-12-03 11:19 | CASEMGMT ---
Pt has an order for DC. Pt did not qualify for an increased demand in oxygen. BELLA CM to pt room. Pt states that she cannot afford a new Pulse Ox. Pulse ox given to the pt at this time. Pt states that her daughter is planning to pick her up from the hospital today and that she will bring in a portable tank for the pt. Pt states that she feels safe discharging home today and denies further needs at this time.
[2023-12-03 13:58] LABS: Pathologist Review Reviewed
[2023-12-03 14:03] LABS: Pathologist Review Reviewed
== END 2023-12-03 14:42 | disposition home or self-care (01) | DRG 177 ==
LOC: ED 12:57 → PCU 13:14
PROVIDERS: Admitting Provider Student in an Organized Health Care Education/Training Program; Emergency Provider Emergency Medicine; PCP Family Medicine; Referring Provider Emergency Medicine; Visit Provider Student in an Organized Health Care Education/Training Program
DX: U07.1 COVID-19 (principal); J12.82 Pneumonia due to coronavirus disease 2019; J96.01 Acute respiratory failure with hypoxia; I50.32 Chronic diastolic (congestive) heart failure; Z68.43 Body mass index [BMI] 50.0-59.9, adult; I11.0 Hypertensive heart disease with heart failure; F32.A Depression, unspecified; J45.909 Unspecified asthma, uncomplicated; I48.91 Unspecified atrial fibrillation; E66.01 Morbid (severe) obesity due to excess calories; E78.5 Hyperlipidemia, unspecified; Z66 Do not resuscitate; Z79.01 Long term (current) use of anticoagulants
CPT/HCPCS: 36415; 71046; 80048; 80053; 81001; 83605; 83880; 84075; 84484; 85025; 87040; 87070; 87077; 87086; 87088; 87186; 87205; 87449; 87631; 93005; 97161; 99285; A4216; J0248

== ENCOUNTER 2024-06-02 10:32 | Inpatient (IN) | payer MEDICARE, MEDICAID, SELFPAY ==
[2024-06-02] VITALS (15 sets, daily range): BP systolic 119–152; BP diastolic 67–104; PULSE 96–146; RESP 12–28; TEMP 35.3–36.7; O2SAT 94–100; BMI 45.4; BMI 43.7
--- NOTE | 2024-06-02 10:43 | EKG12_ITS ---
Test Reason : SOB Blood Pressure : */* mmHG Vent. Rate : 142 BPM Atrial Rate : * BPM P-R Int : * ms QRS Dur : 70 ms QT Int : 312 ms P-R-T Axes : * 52 65 degrees QTcB Int : 479 ms Critical Test Result: High HR Atrial fibrillation with rapid ventricular response Low voltage QRS Cannot rule out Anterior infarct , age undetermined Abnormal ECG Confirmed by CORWIN POLANCO, RANJAN ([id number]), news videotape editor KRISSY MORALES ([id number]) on 06/05/2024 6:46:43 AM Referred By: Wilbert Umanzor Confirmed By: RANJAN OLIVIA MD
--- NOTE | 2024-06-02 10:44 | EDS_ITS ---
HPI History of Present Illness Chief Complaint: Shortness of Breath Detail of Chief Complaint: Shortness of breath Informant: patient Narrative Narrative: Patient presents shortness of breath that started 5 days ago. She denies significant cough. She denies chest pain. Denies fever. She has history of COPD and wears 1-1/2 to 2 L at all times at home. Patient also wears CPAP at night. Patient also with history of A-fib. [facility] Medical History (Updated 06/02/24 @ 13:[address] Alyce Morel, DO) Non-smoker CPAP (continuous positive airway pressure) dependence On home oxygen therapy Atrial fibrillation Hypertension Asthma Depression Atrial fibrillation with RVR Anticoagulant long-term use Acute respiratory failure with hypoxia Obstructive sleep apnea Congestive heart failure (CHF) Dyslipidemia HTN (hypertension) Paroxysmal atrial fibrillation Morbid obesity with body mass index of 50.0-59.9 in adult Home Medications ?Medication ?Instructions ?Recorded ?Last Taken ?Type furosemide 40 mg tablet 40 mg PO BID diuretic 07/14/16 History digoxin 125 mcg (0.125 mg) tablet 125 mcg PO DAILY hea rt rate 01/24/16 07/14/16 History (Digox) lisinopril 10 mg tablet 20 mg PO DAILY blood pressur e 01/24/16 07/14/16 History metoprolol tartrate 50 mg tablet 100 mg PO BID blood p ressure 01/24/16 07/14/16 History potassium chloride 20 mEq 20 meq PO DAILY supplement 1 03/25/15 07/14/16 History tablet,extended release(part/cryst) (Klor-Con M) atorvastatin 10 mg tablet 10 mg PO QHS cholesterol 05/0107/13/16 History apixaban 5 mg tablet (Eliquis) 5 mg PO BID blood thinn er 01/18/22 Unknown History albuterol sulfate 0.63 mg/3 mL 0.63 mg (3 mL) inhalati on Q4H PRN 01/22/22 Unknown Rx solution for nebulization shortness of breath or wheez ing #75 mL guaifenesin 1,200 mg tablet, 1,200 mg PO BID cough #10 tabs 01/22/22 Unknown Rx extended release 12 hr (Mucus Relief ER) amoxicillin 875 mg-potassium 1 tab PO BID #14 tabs Unknown Rx clavulanate 125 mg tablet dexamethasone 6 mg tablet 6 mg PO DAILY #7 tabs Unknown Rx fluconazole 200 mg tablet 200 mg PO DAILY #7 tabs 11/14 Unknown Rx amoxicillin 875 mg-potassium 1 tab PO Q12H 10 days #20 tabs 05/25/24 Unknown Rx clavulanate 125 mg tablet folic acid 1 mg tablet 1 mg PO QDAY 05/25/24 Unknow n History mometasone-formoterol HFA 100 inhalation 05/25/24 Unkn own History mcg-5 mcg/actuation aerosol inhaler (Dulera) sertraline 50 mg tablet 50 mg PO QHS mental health 0 05/25/24 Unknown History tiotropium bromide 2.5 inhalation DAILY 05/25/24 Un known History mcg/actuation mist for inhalation (Spiriva Respimat) Allergy/AdvReac Type Severity Reaction Status Date / Time bee venom protein (honey Allergy Other Verified 05/25/24 15:20 bee) (bee sting) Opioids - Morphine Analogues Allergy Other Verified 05/25/24 15:20 (narcotics) Tetanus Vaccines and Toxoid Allergy Unknown Verified 05/25/24 15:20 (Tetanus Vaccines & Toxoid) Family History Grandmother Breast cancer Father CVA (cerebral vascular accident) Surgical History H/O oophorectomy History of appendectomy Social History household members: children and none housing: house number of children: 2 current occupational status: retired pets and animals: Yes (2 dogs/2 cats) Smoking Status: Never smoker alcohol intake: never substance use type: does not use ROS ROS ED Review of Systems ROS Unobtainable: other Constitutional Constitutional ED: Reports lethargy; Denies chills, fever(s), sweats or weight loss Eyes Eyes: Denies blurry vision, change in vision or diplopia ENT ENT ED: Denies rhinorrhea or sore throat Cardiovascular Cardiovascular: Denies chest pain, orthopnea or racing heartbeat Respiratory/Chest Respiratory/Chest: Reports dyspnea and dyspnea on exertion; Denies cough, orthopnea or sputum Gastrointestinal Gastrointestinal: Denies abdominal pain, diarrhea, nausea or vomiting Genitourinary Genitourinary ED: Denies dysuria, hematuria or urinary frequency Musculoskeletal Musculoskeletal: Denies arthralgias, back pain, myalgias or neck pain Integumentary Denies abscess, Abrasions or rash Neurologic Neurologic: Denies headache(s) or weakness Psychiatric Psychiatric: Denies anxiety, depression or suicidal thoughts Endocrine Endocrinology: Denies polydipsia, polyphagia or polyuria Hematologic/Lymphatic Hematologic/Lymphatic: Denies easy bleeding, easy bruising or lymphadenopathy Allergic/Immunologic Allergic/Immunologic ED: Denies mouth swelling, tongue swelling or urticaria EXAM Physical Exam Const Vital Signs: 06/02/24 10:33 06/02/24 10:36 06/02/24 10:43 Temperature 97.6 F L Temperature Source Temporal Pulse Rate 146 H 144 H Respiratory Rate 18 28 H Respiratory Effort Respiratory Depth Respiratory Pattern Tachypnea Blood Pressure 134/92 H Blood Pressure Mean 106 Pulse Ox 100 94 100 Oxygen Delivery Method Bi-pap Bi-pap Fraction of Inspired Oxygen (FIO2) 40 30
--- NOTE | 2024-06-02 10:44 | ED.VIS.DYS ---
HPI History of Present Illness Chief Complaint: Shortness of Breath Detail of Chief Complaint: Shortness of breath Informant: patient Narrative Narrative: Patient presents shortness of breath that started 5 days ago. She denies significant cough. She denies chest pain. Denies fever. She has history of COPD and wears 1-1/2 to 2 L at all times at home. Patient also wears CPAP at night. Patient also with history of A-fib. [facility] Medical History (Updated 06/02/24 @ 13:[address] Alyce Morel, DO) Non-smoker CPAP (continuous positive airway pressure) dependence On home oxygen therapy Atrial fibrillation Hypertension Asthma Depression Atrial fibrillation with RVR Anticoagulant long-term use Acute respiratory failure with hypoxia Obstructive sleep apnea Congestive heart failure (CHF) Dyslipidemia HTN (hypertension) Paroxysmal atrial fibrillation Morbid obesity with body mass index of 50.0-59.9 in adult Home Medications ?Medication ?Instructions ?Recorded ?Last Taken ?Type furosemide 40 mg tablet 40 mg PO BID diuretic 10/27/13 07/14/16 History digoxin 125 mcg (0.125 mg) tablet 125 mcg PO DAILY heart rate 01/24/16 07/14/16 History (Digox) lisinopril 10 mg tablet 20 mg PO DAILY blood pressure 01/24/16 07/14/16 History metoprolol tartrate 50 mg tablet 100 mg PO BID blood pressure 01/24/16 07/14/16 History potassium chloride 20 mEq 20 meq PO DAILY supplement 01/24/16 07/14/16 History tablet,extended release(part/cryst) (Klor-Con M) atorvastatin 10 mg tablet 10 mg PO QHS cholesterol 07/14/16 07/13/16 History apixaban 5 mg tablet (Eliquis) 5 mg PO BID blood thinner 01/18/22 Unknown History albuterol sulfate 0.63 mg/3 mL 0.63 mg (3 mL) inhalation Q4H PRN 01/22/22 Unknown Rx solution for nebulization shortness of breath or wheezing #75 mL guaifenesin 1,200 mg tablet, 1,200 mg PO BID cough #10 tabs 01/22/22 Unknown Rx extended release 12 hr (Mucus Relief ER) amoxicillin 875 mg-potassium 1 tab PO BID #14 tabs 12/03/23 Unknown Rx clavulanate 125 mg tablet dexamethasone 6 mg tablet 6 mg PO DAILY #7 tabs 12/03/23 Unknown Rx fluconazole 200 mg tablet 200 mg PO DAILY #7 tabs 12/03/23 Unknown Rx amoxicillin 875 mg-potassium 1 tab PO Q12H 10 days #20 tabs 05/25/24 Unknown Rx clavulanate 125 mg tablet folic acid 1 mg tablet 1 mg PO QDAY 05/25/24 Unknown History mometasone-formoterol HFA 100 inhalation 05/25/24 Unknown History mcg-5 mcg/actuation aerosol inhaler (Dulera) sertraline 50 mg tablet 50 mg PO QHS mental health 05/25/24 Unknown History tiotropium bromide 2.5 inhalation DAILY 05/25/24 Unknown History mcg/actuation mist for inhalation (Spiriva Respimat) Allergy/AdvReac Type Severity Reaction Status Date / Time bee venom protein (honey Allergy Other Verified 05/25/24 15:20 bee) (bee sting) Opioids - Morphine Analogues Allergy Other Verified 05/25/24 15:20 (narcotics) Tetanus Vaccines and Toxoid Allergy Unknown Verified 05/25/24 15:20 (Tetanus Vaccines & Toxoid) Family History Grandmother Breast cancer Father CVA (cerebral vascular accident) Surgical History H/O oophorectomy History of appendectomy Social History household members: children and none housing: house number of children: 2 current occupational status: retired pets and animals: Yes (2 dogs/2 cats) Smoking Status: Never smoker alcohol intake: never substance use type: does not use ROS ROS ED Review of Systems ROS Unobtainable: other Constitutional Constitutional ED: Reports lethargy; Denies chills, fever(s), sweats or weight loss Eyes Eyes: Denies blurry vision, change in vision or diplopia ENT ENT ED: Denies rhinorrhea or sore throat Cardiovascular Cardiovascular: Denies chest pain, orthopnea or racing heartbeat Respiratory/Chest Respiratory/Chest: Reports dyspnea and dyspnea on exertion; Denies cough, orthopnea or sputum Gastrointestinal Gastrointestinal: Denies abdominal pain, diarrhea, nausea or vomiting Genitourinary Genitourinary ED: Denies dysuria, hematuria or urinary frequency Musculoskeletal Musculoskeletal: Denies arthralgias, back pain, myalgias or neck pain Integumentary Denies abscess, Abrasions or rash Neurologic Neurologic: Denies headache(s) or weakness Psychiatric Psychiatric: Denies anxiety, depression or suicidal thoughts Endocrine Endocrinology: Denies polydipsia, polyphagia or polyuria Hematologic/Lymphatic Hematologic/Lymphatic: Denies easy bleeding, easy bruising or lymphadenopathy Allergic/Immunologic Allergic/Immunologic ED: Denies mouth swelling, tongue swelling or urticaria EXAM Physical Exam Const Vital Signs: 06/02/24 10:33 06/02/24 10:36 06/02/24 10:43 Temperature 97.6 F L Temperature Source Temporal Pulse Rate 146 H 144 H Respiratory Rate 18 28 H Respiratory Effort Respiratory Depth Respiratory Pattern Tachypnea Blood Pressure 134/92 H Blood Pressure Mean 106 Pulse Ox 100 94 100 Oxygen Delivery Method Bi-pap Bi-pap Fraction of Inspired Oxygen (FIO2) 40 30 06/02/24 11:47 06/02/24 11:48 06/02/24 12:47 Temperature 98.0 F Temperature Source Temporal Pulse Rate 97 103 H Respiratory Rate 21 H 20 H Respiratory Effort Short of Breath Labored Respiratory Depth Shallow Respiratory Pattern Tachypnea Blood Pressure 122/67 H 121/71 H Blood Pressure Mean 85 87 Pulse Ox 99 96 Oxygen Delivery Method Bi-pap Bi-pap Bi-pap Fraction of Inspired Oxygen (FIO2) Positive well nourished and well developed General Appearance ED: well developed and NAD HEENT Reports TM's clear and moist mucous membranes normocephalic and atraumatic; Negative for trauma or tenderness Tympanic Membrane ED: Yes TM's clear Eyes PERRL and EOMs intact bilaterally General Eye ED: Negative for pale conjunctiva or scleral icterus Neck no lymphadenopathy, supple and no JVD General: Negative for tenderness Chest Wall inspection of chest normal and palpation of chest normal Chest: Negative for tenderness Resp normal respiratory effort and clear to auscultation bilaterally Effort and Inspection: Negative for respiratory distress or pain with movement Auscultation: Negative for rhonchi, wheezes or diminished lung sounds Cardio regular rate, regular rhythm, S1 normal heart sound, S2 normal heart sound and no murmurs Peripheral Pulses: pulses 2+ throughout GI normal to inspection, nondistended, normoactive bowel sounds, soft to palpation, non-tender, non-distended and no masses Back/Spine no CVA tenderness and no thoracic nor lumbar tenderness Extremity normal to inspection Extremity Narrative: Trace edema both lower extremities General Extremety ED: Negative for edema General Extremity: Negative for edema Neuro oriented x3, CN's II-XII intact bilaterally, no sensory deficits noted and gait normal Sensorium / Orientation: awake, alert, oriented to person, oriented to place and oriented to time Motor Exam: strength 5/5 throughout and strength abnormal Psych mental status grossly normal Skin no rashes or lesions noted and no wounds MDM MDM MDM Narrative Medical decision making narrative: Patient presents with shortness of breath for the last 5 days. No significant cough. She complains of exertional dyspnea. Placed on CPAP by EMS as she did not tolerate nasal cannula very well. Patient has history of COPD and emphysema as well as history of A-fib. She is on Eliquis. IV line established. She was given a DuoNeb aerosol and was started on Solu-Medrol. CBC with differential count of 8.2 with hemoglobin 14 and platelet count of 271. Chemistries unremarkable. Lactate elevated 3.7 although clinically does not appear infected. Troponin was normal at 9 and BT [employer] HELPER was 168. 1 view chest x-ray obtained showed cardiomegaly with some mild congestion but no evidence of infiltrate on my interpretation. Lab Data Attestation: I reviewed the patient's lab results. Labs: Laboratory Results - last 24 hr 06/02/24 06/02/24 10:54 11:37 WBC 8.2 RBC 4.74 Hgb 14.0 Hct 43.0 MCV 90.7 MCH 29.5 MCHC 32.6 RDW Std Deviation 43.3 RDW Coeff of Giles 13.1 Plt Count 271 MPV 10.3 Immature Gran % (Auto) 0.400 Neut % (Auto) 66.9 Lymph % (Auto) 22.6 [place] % (Auto) 6.7 Eos % (Auto) 2.8 Baso % (Auto) 0.6 Absolute Neuts (auto) 5.5 Absolute Lymphs (auto) 1.86 Nucleated RBC % 0 Sodium 141 Potassium 3.6 Chloride 107 Carbon Dioxide 20.8 L Anion Gap 13 BUN 14 Creatinine 0.69 L Estim Creat Clear Calc 67.37 Est GFR (MDRD) Non-Af 92 BUN/Creatinine Ratio 19.7 Glucose 175 H Lactic Acid 3.7 H* Calcium 8.8 Troponin T High Sens 9 NT pro BNP II 168 Radiography Diagnostic Testing: Clinical Impression(s) from Imaging Studies Chest X-Ray 06/02/24 11:07 IMPRESSION: Cardiomegaly with mild congestion. Reading Location: [facility] 1 view chest x-ray obtained interpreted by myself as no evidence of infiltrate or pneumothorax or acute disease process. Patient was felt by radiology to have cardiomegaly and some mild congestion EKG Initial EKG: Attestation: I personally reviewed and interpreted this EKG as follows: Comments: Atrial fibrillation with rate of 142 bpm Discharge Plan Dx/Rx/DC Orders Clinical Impression: Acute dyspnea, COPD exacerbation, Respiratory failure, Atrial fibrillation with RVR Disposition Disposition: Acute Care Hospital [facility]
--- NOTE | 2024-06-02 11:07 | RAD_ITS ---
EXAM: XR Chest, 1 View CLINICAL INDICATION: DYSPNEA TECHNIQUE: Frontal view of the chest. COMPARISON: No relevant prior studies available. FINDINGS: LUNGS AND PLEURAL SPACES: See below. HEART: Cardiomegaly with mild congestion. MEDIASTINUM: Unremarkable. Normal mediastinal contour. BONES/JOINTS: Unremarkable. No acute fracture. RAD/Chest 1 View (Portable) IMPRESSION: Cardiomegaly with mild congestion. [facility]
[2024-06-02 11:11] LABS: Absolute Lymphocyte Count 1.86 X10^3/uL (0.83-4.51); Absolute Neutrophil Count 5.5 X10^3/uL (2.0-7.7); Basophil# 0.05 X10^3/uL; Basophil% 0.6 % (0-1); Eosinophil# 0.23 X10^3/uL; Eosinophils% 2.8 % (0-5); Lymphocyte # 1.86 X10^3/ul (0.83-4.51); Lymphocyte % 22.6 % (19-41); Mean Corp Hgb Conc 32.6 g/dL (32-36); Mean Corpuscular Hgb 29.5 pg (27.0-32.0); Mean Corpuscular Volume 90.7 fL (81-99); Mean Platelet Vol. 10.3 fl (6.2-12.0); Monocyte# 0.55 X10^3/uL; Monocyte% 6.7 % (0-10); NRBC Flagged by Analyzer 0 % (0-5); Neutrophil % 66.9 % (47-70); Platelet Count 271 K/mm3 (150-450); RBC Distribution Width CV 13.1 % (11.6-14.6); RBC Distribution Width SD 43.3 fl (35.1-43.9); Red Blood Count 4.74 M/mm3 (4.2-5.4); White Blood Count 8.2 K/mm3 (4.4-11.0)
[2024-06-02] MEDS: dilTIAZem 25 MG/5 ML Vial 20 MG IV BOLUS (11:17)
[2024-06-02 11:58] LABS: Anion Gap 13 (5-15); BUN 14 mg/dL (4-19); BUN/Creat Ratio 19.7 RATIO (10-20); Calcium,Total 8.8 mg/dL (7.6-11.0); Carbon Dioxide 20.8 mmol/L (21.0-32.0); Chloride 107 mmol/L (98-108); Creatinine, Serum 0.69 mg/dL (0.70-1.20); EST Glomerular Filtration Rate 92 (>60); Estimated Creatinine Clearance 67.37 ml/min (50-250); Glucose 175 mg/dL (70-99); Potassium 3.6 mmol/L (3.3-5.1); Pro- Brain NATRIURETIC PEPTIDE 168 pg/mL (<=900); Sodium Level 141 mmol/L (133-145); Troponin T High Sensitivity 9 ng/L (<=14)
[2024-06-02 12:41] LABS: Lactic Acid 3.7 mmol/L (0.0-2.0)
--- NOTE | 2024-06-02 12:43 | NURSING ---
Lactic Acid 3.7, dr crow aware
[2024-06-02] MEDS: MethylPREDNISolone 125 MG/2 ML Vial IV (12:51)
[2024-06-02] MEDS: Ipratropium/Albuterol Sulfate 3 ML AMPUL.NEB INHALATION ×3 (13:20→19:30)
--- NOTE | 2024-06-02 13:20 | PCM.HP.STD ---
HPI - General General Date of Admission: 06/02/24 Date of Service: 06/02/24 Chief Complaint: Worsening shortness of breath HPI Narrative GUNNER BAKER, is a 74 F who presented to [facility] ED on 06/02/2024 with worsening shortness of breath. Patient has history of COPD and wears 1 to 2 L at baseline. Medical history also significant for permanent A-fib, HFpEF, pulmonary hypertension and depression. She receives most of her care through [facility]. She was recently hospitalized at [facility] from 04/27-05/08 for COPD exacerbation in setting of influenza A and MSSA pneumonia, digoxin toxicity and NICK; reviewed discharge summary in [facility]. She lives at home with her daughter and was able to be discharged home after that hospitalization. She presented today with worsening shortness of breath over the past 4 to 5 days. Chest x-ray showed cardiomegaly with mild congestion. Was noted to be in A-fib with RVR with heart rate to the 140s; was given a dose of IV Cardizem with improvement to the 100s. COVID/flu/RSV negative. Lactic acid was 3.7, CBC and BMP otherwise unremarkable. Was given a breathing treatment and a dose of IV steroids with concern for COPD exacerbation, and hospitalist was contacted for admission. I saw the patient at bedside in the ED. Patient was sitting back comfortably in bed and breathing comfortably on 2 L nasal cannula at rest. She did have mild wheezing with crackles noted in upper airways bilaterally but otherwise had good air movement throughout. She reported mild lower extremity swelling today but notes it is not far from her baseline. She denies any recent fevers or chills. Has been taking her home medications as prescribed. No other acute concerns at this time. [facility] Medical History (Updated 06/02/24 @ 18:[address] Wilbert Umanzor, DO) Congestive heart failure (CHF) Anxiety Pulmonary embolism COPD (chronic obstructive pulmonary disease) Non-smoker CPAP (continuous positive airway pressure) dependence On home oxygen therapy Atrial fibrillation Hypertension Asthma Depression Atrial fibrillation with RVR Anticoagulant long-term use Acute respiratory failure with hypoxia Obstructive sleep apnea Congestive heart failure (CHF) Dyslipidemia HTN (hypertension) Paroxysmal atrial fibrillation Morbid obesity with body mass index of 50.0-59.9 in adult Home Medications ?Medication ?Instructions ?Recorded ?Last Taken ?Type furosemide 40 mg tablet 40 mg PO BID diuretic 10/27/13 07/14/16 History digoxin 125 mcg (0.125 mg) tablet 125 mcg PO DAILY heart rate 01/24/16 07/14/16 History (Digox) lisinopril 10 mg tablet 20 mg PO DAILY blood pressure 01/24/16 07/14/16 History metoprolol tartrate 50 mg tablet 100 mg PO BID blood pressure 01/24/16 07/14/16 History potassium chloride 20 mEq 20 meq PO DAILY supplement 01/24/16 07/14/16 History tablet,extended release(part/cryst) (Klor-Con M) atorvastatin 10 mg tablet 10 mg PO QHS cholesterol 07/14/16 07/13/16 History apixaban 5 mg tablet (Eliquis) 5 mg PO BID blood thinner 01/18/22 Unknown History albuterol sulfate 0.63 mg/3 mL 0.63 mg (3 mL) inhalation Q4H PRN 01/22/22 Unknown Rx solution for nebulization shortness of breath or wheezing #75 mL guaifenesin 1,200 mg tablet, 1,200 mg PO BID cough #10 tabs 01/22/22 Unknown Rx extended release 12 hr (Mucus Relief ER) amoxicillin 875 mg-potassium 1 tab PO BID sinusitis #14 tabs 12/03/23 Unknown Rx clavulanate 125 mg tablet dexamethasone 6 mg tablet 6 mg PO DAILY #7 tabs 12/03/23 Unknown Rx fluconazole 200 mg tablet 200 mg PO DAILY #7 tabs 12/03/23 Unknown Rx amoxicillin 875 mg-potassium 1 tab PO Q12H sinusitis 10 days 05/25/24 Unknown Rx clavulanate 125 mg tablet #20 tabs folic acid 1 mg tablet 1 mg PO DAILY see PCP 05/25/24 Unknown History mometasone-formoterol HFA 100 inhalation wheezing 05/25/24 Unknown History mcg-5 mcg/actuation aerosol inhaler (Dulera) sertraline 50 mg tablet 50 mg PO QHS mental health 05/25/24 Unknown History tiotropium bromide 2.5 inhalation DAILY wheezing 05/25/24 Unknown History mcg/actuation mist for inhalation (Spiriva Respimat) Allergy/AdvReac Type Severity Reaction Status Date / Time bee venom protein (honey Allergy Other Verified 05/25/24 15:20 bee) (bee sting) Opioids - Morphine Analogues Allergy Other Verified 05/25/24 15:20 (narcotics) Tetanus Vaccines and Toxoid Allergy Unknown Verified 05/25/24 15:20 (Tetanus Vaccines & Toxoid) Family History Grandmother Breast cancer Father CVA (cerebral vascular accident) Surgical History H/O oophorectomy History of appendectomy Social History household members: children and none housing: house number of children: 2 current occupational status: retired pets and animals: Yes (2 dogs/2 cats) Smoking Status: Never smoker alcohol intake: never substance use type: does not use ROS Constitutional Constitutional: Reports fatigue; Denies chills, fever(s) or weakness Eyes Eyes: Denies change in vision Cardiovascular Cardiovascular: Denies chest pain Respiratory/Chest Respiratory/Chest: Reports cough, dyspnea, shortness of breath at rest, shortness of breath with exertion and wheezing; Denies productive cough Gastrointestinal Gastrointestinal: Denies abdominal pain Musculoskeletal Musculoskeletal: Denies arthralgias or myalgias Vital Signs Vital Signs Vital Signs: 06/02/24 10:33 06/02/24 10:36 06/02/24 10:43 Temperature 97.6 F L Temperature Source Temporal Pulse Rate 146 H 144 H Respiratory Rate 18 28 H Respiratory Effort Respiratory Depth Respiratory Pattern Tachypnea Blood Pressure 134/92 H Blood Pressure Mean 106 Pulse Ox 100 94 100 Oxygen Delivery Method Bi-pap Bi-pap Fraction of Inspired Oxygen (FIO2) 40 30 06/02/24 11:47 06/02/24 11:48 06/02/24 12:47 Temperature 98.0 F Temperature Source Temporal Pulse Rate 97 103 H Respiratory Rate 21 H 20 H Respiratory Effort Short of Breath Labored Respiratory Depth Shallow Respiratory Pattern Tachypnea Blood Pressure 122/67 H 121/71 H Blood Pressure Mean 85 87 Pulse Ox 99 96 Oxygen Delivery Method Bi-pap Bi-pap Bi-pap Fraction of Inspired Oxygen (FIO2) Weight Weight: 102.1 kg Body Mass Index (BMI) 45.4 Physical Exam Const alert, oriented x3 and no apparent distress Constitutional Narrative: Elderly female, class III obesity, mildly fatigued appearing but otherwise sitting back comfortably in bed, conversing normally and in no acute distress. General Appearance: cooperative and comfortable HEENT normocephalic, head/scalp atraumatic, hearing grossly normal bilaterally, nasal mucous membranes and turbinates normal and moist oral mucous membranes Eyes PERRL, EOMs intact bilaterally and conjunctivae normal Neck full ROM Chest inspection of chest normal Resp normal respiratory effort and no use of accessory muscles Resp Narrative: Breathing comfortably on 2 L nasal cannula at rest. Mild upper airway wheezing noted and mild crackles in mid lung zones noted. Otherwise good air movement throughout. Cardio no murmurs and peripheral pulses 2+ throughout Cardio Narrative: A-fib with RVR. GI normal to inspection, nondistended, normoactive bowel sounds, soft to palpation, non-tender and non-distended Back/Spine normal ROM Extremity Extremity Narrative: +1 lower extremity pitting edema noted. Skin no rashes or lesions noted Neuro moves all extremities and no focal motor deficits Speech: speech normal Motor Exam: strength 5/5 throughout Psych mental status grossly normal Results Lab / Micro Data 06/02/24 10:54 06/02/24 10:54 Labs: Laboratory Results - last 24 hr 06/02/24 10:54: WBC 8.2, RBC 4.74, Hgb 14.0, Hct 43.0, MCV 90.7, MCH 29.5, MCHC 32.6, RDW Std Deviation 43.3, RDW Coeff of Giles 13.1, Plt Count 271, MPV 10.3, Immature Gran % (Auto) 0.400, Neut % (Auto) 66.9, Lymph % (Auto) 22.6, [place] % (Auto) 6.7, Eos % (Auto) 2.8, Baso % (Auto) 0.6, Absolute Neuts (auto) 5.5, Absolute Lymphs (auto) 1.86, Nucleated RBC % 0, Sodium 141, Potassium 3.6, Chloride 107, Carbon Dioxide 20.8 L, Anion Gap 13, BUN 14, Creatinine 0.69 L, Estim Creat Clear Calc 67.37, Est GFR (MDRD) Non-Af 92, BUN/Creatinine Ratio 19.7, Glucose 175 H, Calcium 8.8, Troponin T High Sens 9, NT pro BNP II 168 06/02/24 11:37: Lactic Acid 3.7 H* Micro: Microbiology 06/02/24 11:36 Mucosa - Nose SARS-CoV-2, Influenza & RSV (PCR) - Final Imaging Radiology Impression Chest X-Ray 06/02/24 11:07 IMPRESSION: Cardiomegaly with mild congestion. Reading Location: [facility] Assessment & Plan Assessment/Plan (1) COPD exacerbation: (2) Acute heart failure with preserved ejection fraction (HFpEF): (3) Atrial fibrillation with RVR: PLAN: Plan Patient is a 74-year-old female who presented to [facility] ED on 06/02/2024 with worsening shortness of breath. 1. Suspected combined COPD exacerbation and mild HFpEF exacerbation in setting of chronic hypoxic respiratory failure ? Admit under inpatient status to PCU. On home 1 to 2 L nasal cannula. Oxygen saturations in low to mid 90s on 2 L nasal cannula in the ED but dropped to the mid 80s with exertion. Chest x-ray with cardiomegaly and mild vascular congestion. Upper airway wheezing noted on exam. Notably patient has history of HFrEF and last echo in our system showed EF to 20 to 25% in 2017 with global dysfunction. Has had recovery of ejection fraction and echo at outside hospital on 05/07 showed EF 60%, moderate to severe pulmonary hypertension. Will repeat echo here given her presentation. Suspect patient may have a degree of volume overload secondary to A-fib with RVR on admit. Will treat with IV steroids and DuoNebs for COPD exacerbation. Infectious workup negative to this point, WBC count normal and afebrile so we will hold on antibiotics for now. Given 1 dose of IV Lasix in the ED and will continue home p.o. Lasix 40 mg twice daily for now. Monitor daily BMP and urine output. 2. Permanent A-fib with RVR ? Follows with Cardiology at [facility]. Was previously on digoxin but this was discontinued during recent hospitalization due to toxicity as noted below. In A-fib with RVR to the 140s on admit here, improved to the 110s with IV Cardizem bolus. Will continue home Lopressor 75 mg twice daily and order IV Lopressor 5 mg every 6 hours as needed for heart rate greater than 130. Continue home Eliquis. 3. Elevated lactic acid, improved ? Lactate 3.7 on admit. Suspect secondary to increased work of breathing from mild respiratory distress on admission. Improved to 1.8 on recheck, no need to monitor further. 4. Recent prolonged hospitalization ? Recently hospitalized from 04/27-05/08 at [facility], see HPI for further details. The hospital course was notable for influenza A infection, MSSA pneumonia, NICK and digoxin toxicity. Patient was able to be discharged home without therapy on 05/08. Chronic medical conditions: ? Class III obesity: BMI 43 on admit. Complicates hospital course, care and prognosis. ? Hypertension: Continue home Lopressor and lisinopril. ? Hyperlipidemia: Continue home statin. ? Depression: Continue home sertraline. DVT prophylaxis: Not indicated, on Eliquis CODE STATUS: DNR CCA, DNI Expected disposition: Home, 2 to 3 days Total clinical time spent by myself addressing the patient's medical issues, reviewing all the data, and collaborating with patient's care team: 75 minutes. Charges/Coding Visit Charges Inpatient E&M: 57051 Init Hosp L3
--- NOTE | 2024-06-02 13:32 | ECHOD_ITS ---
Reason For Study : CHF Procedure This was a 2D Doppler, Color Flow transthoracic echocardiogram. Exam performed portable in patient room. Left Ventricle Normal LV size. Mild concentric left ventricular hypertrophy. The left ventricular ejection fraction is 40 %. There is mild global hypokinesis of the left ventricle. Right Ventricle Normal RV size. Normal systolic function. Atria The left atrium is severely enlarged. Normal right atrium. Mitral Valve Normal mitral valve. Mild (1+) eccentric mitral valve insufficiency. Tricuspid Valve Normal tricuspid valve. Mild to moderate (1-2+) tricuspid valve insufficiency. Pulmonary artery systolic pressure is 52 mmHg. Aortic Valve Trisinus/trileaflet aortic valve. Mild (1+) eccentric aortic valve insufficiency. Pulmonic Valve Normal pulmonic valve. Great Vessels Normal aortic root. The pulmonary artery is normal size. Inferior vena cava collapse with respiration. Pericardium/Pleural Small (<1.0 cm) pericardial effusion. There are no echocardiographic indications of cardiac tamponade. MMode/2D Measurements & Calculations LVIDd: 4.2 cm IVSd: 1.2 cm Ao root diam: 3.1 cm LVIDs: 3.7 cm LVPWd: 1.2 cm RVDd: 3.1 cm FS: 11.2 % LAV(MOD-sp2): 141.6 ml LVAd ap4: 23.9 cm2 LVAd ap2: 26.8 cm2 LVLd ap4: 7.6 cm LVLd ap2: 7.7 cm EDV(MOD-sp4): 63.9 ml EDV(MOD-sp2): 77.5 ml EDV(sp4-el): 64.1 ml EDV(sp2-el): 78.6 ml LVAs ap4: 17.1 cm2 LVAs ap2: 19.5 cm2 LVLs ap4: 6.7 cm LVLs ap2: 7.3 cm ESV(MOD-sp4): 36.9 ml ESV(MOD-sp2): 44.2 ml ESV(sp4-el): 37.1 ml ESV(sp2-el): 43.9 ml EF(MOD-sp4): 42.3 % EF(MOD-sp2): 43.0 % EF(sp4-el): 42.1 % SV(MOD-sp4): 27.0 ml SV(MOD-sp2): 33.3 ml SV(sp4-el): 27.0 ml SI(MOD-sp4): 14.0 ml/m2 SI(MOD-sp2): 17.2 ml/m2 LA dimension(2D): 6.0 cm Doppler Measurements & Calculations MV E max concetta: 148.1 cm/sec Ao V2 max: 179.1 cm/sec AI max concetta: 427.1 cm/sec Ao max P.9 mmHg AI max P.0 mmHg Ao V2 mean: 121.2 cm/sec AI dec slope: 371.9 cm/sec2 Ao mean P.7 mmHg AI P1/2t: 336.4 msec Ao V2 VTI: 31.4 cm AV (velocity ratio): 0.58 LV V1 max: 108.3 cm/sec TR max concetta: 347.4 cm/sec LV V1 max P.7 mmHg TR max P.3 mmHg LV V1 mean P.6 mmHg LV V1 mean: 76.9 cm/sec LV V1 VTI: 18.2 cm ECHO/Echo Complete Interpretation Summary Normal LV size. The left ventricular ejection fraction is 40 %. Mild concentric left ventricular hypertrophy. There is mild global hypokinesis of the left ventricle. Pulmonary artery systolic pressure is 52 mmHg. There are no echocardiographic indications of cardiac tamponade. Compared to previous study, the left ventricular systolic function has improved .. Ordering Physician: Wilbert Umanzor Referring Physician: Kory Ibarra Performed By: Kasandra Whitten RDCS
[2024-06-02 17:53] LABS: Troponin T High Sens 2 HR 23 ng/L (<=14)
[2024-06-02 17:55] LABS: Lactic Acid 1.8 mmol/L (0.0-2.0)
[2024-06-02] MEDS: Furosemide 40 MG/4 ML Vial IV (19:43)
[2024-06-02] MEDS: Metoprolol Tartrate 5 MG/5 ML Vial IV (19:43)
[2024-06-02] MEDS: APIXABAN 5 MG TABLET PO (21:00)
[2024-06-02] MEDS: Atorvastatin Calcium 10 MG Tablet PO (21:00)
[2024-06-02] MEDS: Metoprolol Tartrate 25 MG Tablet 75 MG PO (21:01)
[2024-06-02] MEDS: Sertraline 50 MG Tablet PO (21:02)
[2024-06-02] MEDS: Methylprednisolone Sod Succ 40 MG/ML VIAL IV (21:02)
[2024-06-02] MEDS: Nystatin Powder 15gm Bottle 1 APPLIC TOPICAL (21:03)
[2024-06-02] MEDS: guaiFENesin 1,200 MG Tablet 1200 MG PO (21:03)
[2024-06-03] VITALS (11 sets, daily range): BP systolic 120–135; BP diastolic 72–86; PULSE 85–125; RESP 12–20; TEMP 36.2–36.6; O2SAT 95–99
[2024-06-03] MEDS: Methylprednisolone Sod Succ 40 MG/ML VIAL IV ×3 (06:23→21:33)
[2024-06-03 06:46] LABS: Hematocrit 29.9 % (37-47); Mean Corp Hgb Conc 29.4 g/dL (32-36); Mean Corpuscular Hgb 29.1 pg (27.0-32.0); Mean Platelet Vol. 13.9 fl (6.2-12.0); POSITIVE COUNT YES; Platelet Count 92 K/mm3 (150-450); RBC Distribution Width CV 18.1 % (11.6-14.6); RBC Distribution Width SD 64.7 fl (35.1-43.9); Red Blood Count 3.02 M/mm3 (4.2-5.4); White Blood Count 12.3 K/mm3 (4.4-11.0)
[2024-06-03 07:09] LABS: Hemoglobin 8.8 g/dL (12.0-15.0); Scan Indicated on CBC? Y/N YES- FLAGS NOTED
[2024-06-03] MEDS: Ipratropium/Albuterol Sulfate 3 ML AMPUL.NEB INHALATION ×3 (07:14→19:26)
[2024-06-03 07:27] LABS: Anion Gap 15 (5-15); BUN 32 mg/dL (4-19); BUN/Creat Ratio 29.5 RATIO (10-20); Calcium,Total 9.6 mg/dL (7.6-11.0); Carbon Dioxide 24.5 mmol/L (21.0-32.0); Chloride 103 mmol/L (98-108); Creatinine, Serum 1.09 mg/dL (0.70-1.20); EST Glomerular Filtration Rate 54 (>60); Estimated Creatinine Clearance 48.29 ml/min (50-250); Glucose 157 mg/dL (70-99); Potassium 4.2 mmol/L (3.3-5.1); Sodium Level 142 mmol/L (133-145)
[2024-06-03] MEDS: APIXABAN 5 MG TABLET PO ×2 (08:28→21:29)
[2024-06-03] MEDS: Lisinopril 20 MG Tablet PO (08:28)
[2024-06-03] MEDS: Sertraline 50 MG Tablet PO (08:29)
[2024-06-03] MEDS: Furosemide 40 MG Tablet PO (08:29)
[2024-06-03] MEDS: Metoprolol Tartrate 25 MG Tablet 75 MG PO ×2 (08:29→21:30)
[2024-06-03] MEDS: guaiFENesin 1,200 MG Tablet 1200 MG PO (08:29)
[2024-06-03] MEDS: Nystatin Powder 15gm Bottle 1 APPLIC TOPICAL ×2 (08:30→21:36)
[2024-06-03] MEDS: Folic Acid 1 MG Tablet PO (08:30)
--- NOTE | 2024-06-03 10:03 | CASEMGMT ---
Addendum entered by Grisel Machuca 06/03/24 12:15: TC to [facility], left referral on vm. Addendum entered by Grisel Machuca 06/03/24 11:51: TC to pt dtr. She states pt is active with [facility]. She is aware that she may speak to Dr. Ibarra regarding a referral to a new agency at next appt which is on Jun 21. Pt to dc home tomorrow and RN SOLEDAD unable to get this care transferred. She is also aware to speak with for a hospital bed. Pt dtr to bring in a portable oxygen tank for pt to dc home on. She states pt is on 2L cont and through CPAP at . Green sheet on chart for an increase in O2 needs should pt qualify. Pt dtr denies further needs at this time. [facility] is not in careport. TC to number found online [phone]. TC to [facility], spoke with Maricarmen, she states that pt was dc'd on May 17. TC back to pt dtr, she states that a nurse was out to see her mother and later called back and states that she did the wrong assessment and had to come back but has not rescheduled. Therapy was supposed to have come out and did not schedule. Pt dtr requests to go with a different agency. She requests [facility], made her aware that there is a [facility] plan that they do not take and this BELLA ROWE will not have an answer until Wednesday. She is aware that the referral will be called to them and a list of providers including quality and resource use data and consistent with the patient?s preferred geographic region, medical needs, and insurance network were provided via the [employer] Guide Link to pt cell phone. Pt dtr is appreciative of this. Discussed HH SN, PT and OT. Report left for this to be followed up on Wednesday. Original Note: BELLA ROWE Assessment: Face to Face with pt for initial transition planning/care coordination assessment. BELLA ROWE introduced self and role at [facility], pt voices understanding and consents to assessment. Pt is A&O x4 and answers all questions appropriately at this time. Pt sitting up in chair with oxygen on in no distress. Hospitalist came in during assessment. Care providers, pharmacy, and demographics verified/updated. Admitting Dx: COPD vs CHF exac PCP:Fred Specialists:Cardio and pulm with summa, pt could not recall name Preferred Pharmacy: [facility] Insurance: [facility] Dual Complete, [facility] Prescription Benefit: yes LNOK: Rhiannon Young, dtr Living Arrangements: Pt lives with dtr, son in law and grandchildren in a single story home with 3 steps to enter with a rail. Pt reports she is I in ADLs and she and her family together do meals, laundry and get groceries. Pt denies concerns at home. Transportation: Pt drives self and denies concerns with transportation. DME:oxygen with cpap through [employer], nebulizer, walker, pox HHC/SNF: Pt states she is active with HHC currently from [place] but does not know the name of the agency. Pt has been to a SNF in [place] but does not recall the name. Pt states no concerns with going home at time of dc. Pt requests a hospital bed at or. Hospitalist states pt will need to f/u with PCP regarding this, pt made aware. Pt expresses dissatisfaction with her current HHC and states her dtr has spoke with them in the past. She requests BELLA ROWE call her dtr to obtain the name of the agency, to see that she has a portable oxygen tank to dc home on and to make aware that she needs to follow with PCP regarding a hospital bed. Pt reports her dtr is a nurse. Pt states no further concerns/needs. CM to follow. Advised pt to ask CM if any further questions/concerns/needs arise, voices understanding. Pt Goal: Home with HHC resuming. Plan: Home with HHC resuming, follow for increase in oxygen, green sheet on chart. Rosanna BLANCO CM
--- NOTE | 2024-06-03 13:24 | PCM.PN.HOSP ---
Reason for Visit Reason for Visit: Diagnoses Unspecified atrial fibrillation (06/02/24) Acute diastolic (congestive) heart failure (06/02/24) Chronic obstructive pulmonary disease with (acute) exacerbation (06/02/24) Objective Data Objective Data Vital Signs: Vital Signs Temp Pulse Resp BP Pulse Ox O2 Del Method O2 Flow Rate 97.5 F L 116 H 20 H 124/86 H 95 Nasal Cannula 2 06/03/24 08:16 06/03/24 11:43 06/03/24 11:43 06/03/24 08:29 06/03/24 08:16 06/03/24 09:31 06/03/24 09:31 FiO2 30 06/03/24 01:09 Oxygen Flow Rate (L/min) 2 Oxygen Delivery Method Nasal Cannula Weight: 216 lb 4.375 oz Body Mass Index (BMI) 43.7 Intake & Output: Intake and Output for Last 24 Hours 06/01/24 06/02/24 06/03/24 23:59 23:59 23:59 Intake Total 460 / 860 940 / 940 Output Total 1150 / 1150 Balance 460 / 360 -210 / -210 Lab / Micro Data 06/03/24 06:35 06/03/24 05:02 Labs: Laboratory Results - last 24 hr 06/02/24 11:37: Lactic Acid 3.7 H* 06/02/24 14:21: Procalcitonin 0.20 H 06/02/24 16:55: Lactic Acid 1.8, Troponin T Hi Sens 2 Hr 23 H 06/03/24 05:02: WBC Cancelled, Corrected WBC Cancelled, RBC Cancelled, Hgb Cancelled, Hct Cancelled, MCV Cancelled, MCH Cancelled, MCHC Cancelled, RDW Std Deviation Cancelled, RDW Coeff of Giles Cancelled, Plt Count Cancelled, MPV Cancelled, Diff Path Review Cancelled, Sodium 142, Potassium 4.2, Chloride 103, Carbon Dioxide 24.5, Anion Gap 15, BUN 32 H, Creatinine 1.09, Estim Creat Clear Calc 48.29 L, Est GFR (MDRD) Non-Af 54 L, BUN/Creatinine Ratio 29.5 H, Glucose 157 H, Calcium 9.6 06/03/24 06:35: WBC 12.3 H, RBC 3.02 L, Hgb 8.8 L, Hct 29.9 L, MCV 99.0 D, MCH 29.1, MCHC 29.4 L D, RDW Std Deviation 64.7 H, RDW Coeff of Giles 18.1 H, Plt Count 92 L, MPV 13.9 H Micro: Microbiology 06/02/24 15:44 Mucosa - Nose Respiratory Panel (PCR) - Final 06/02/24 11:36 Mucosa - Nose SARS-CoV-2, Influenza & RSV (PCR) - Final Radiography Diagnostic Testing: Radiology Impression Echocardiogram 06/02/24 13:32 Interpretation Summary Normal LV size. The left ventricular ejection fraction is 40 %. Mild concentric left ventricular hypertrophy. There is mild global hypokinesis of the left ventricle. Pulmonary artery systolic pressure is 52 mmHg. There are no echocardiographic indications of cardiac tamponade. Compared to previous study, the left ventricular systolic function has improved.. Ordering Physician: Wilbert Umanzor Referring Physician: Kory Ibarra Performed By: Kasandra Whitten RDCS Physical Exam Narrative Seen and examined. Patient is states her shortness of breath is better. Physical exam General: Alert, Oriented x3, Cooperative. Morbid obesity BMI 43.7 kg/m? HEENT: Atraumatic, PERRLA, EOMI, Normocephalic Oral: No Gingival or Mucosal Lesions/ Ulcerations Neck: Supple, No JVD, Negative Carotid Bruits Chest wall/Lungs: Air entry diminished in bilateral lung bases. Mild bilateral rhonchi and wheezing Cardiovascular: Irregular rate and rhythm, Normal S1, Normal S2, No M/G/R Abdomen: Bowel Sounds Present, Soft, Non Tender, Non-Distended : No dysuria. No renal angle tenderness. No suprapubic tenderness. Extremities: Mild pedal edema, Capillary Refill Less than 3 Seconds Skin: No rashes, No breakdown Musculoskeletal: No Tenderness to Palpation of Joints or Extremities Neurological: Cranial nerves II-XII grossly intact, DTR 2+/4. No acute focal neurological deficit. Psych/Mental Status: Normal Affect, Appropriate. Assessment & Plan Assessment/Plan (1) COPD exacerbation: (2) Acute heart failure with preserved ejection fraction (HFpEF): (3) Atrial fibrillation with RVR: PLAN: Plan Patient is a 74-year-old female who presented to [facility] ED on 06/02/2024 with worsening shortness of breath. Usually she is on 1.5 to 2 L of O2 05/10 and uses CPAP at night with oxygen. History of COPD/asthma overlap. No fever but cough, shortness of breath for 5 to 6 days. History of A-fib 1. Suspected predominant acute HFrEF exacerbation and pulmonary hypertension in setting of chronic hypoxic respiratory failure: Patient is being admitted in PCU. Chest x-ray initially reviewed and shows cardiomegaly and mild pulmonary venous congestion. 2D echo shows EF 40%, PASP 52 mmHg, mild global HK of LV, mild concentric LVH. No evidence of cardiac tamponade. Previous echo on 05/07 showed EF 60% with moderate to severe pulmonary hypertension. It shows recovery from EF 20 to 25% in 2017. Lactic acid 3.7 probably due to hypoxia/decreased perfusion from heart failure. Repeat lactic acid normal. Troponin 9 and 23. Patient does not have chest pain or pressure. Increased troponin from CHF exacerbation. Cardiac demand Furosemide 40 mg IV twice daily. Heart failure core measures including intake and output, fluid restriction less than 1500 mL, daily weight monitoring, kidney and electrolytes monitoring. 2. Possible mild COPD exacerbation with CHRISTIANNE on CPAP: Patient is being managed on scheduled bronchodilator, IV Solu-Medrol, Mucinex, incentive spirometry and Pep. Triple PCR for SARS-CoV-2, flu and RSV are negative. Respiratory panel negative 3. Permanent A-fib with RVR on admission: ? Follows with Cardiology at [facility]. Was previously on digoxin but this was discontinued during recent hospitalization due to toxicity as noted below. Heart rate better but 108 216/min. Continue home Lopressor 75 mg twice daily and order IV Lopressor 5 mg every 6 hours as needed for heart rate greater than 130. Continue home Eliquis. 4. Recent prolonged hospitalization ? Recently hospitalized from 04/27-05/08 at [facility], see HPI for further details. The hospital course was notable for influenza A infection, MSSA pneumonia, NICK and digoxin toxicity. Patient was able to be discharged home without therapy on 05/08. Chronic medical conditions: ? Class III obesity: BMI 43 on admit. Complicates hospital course, care and prognosis. ? Hypertension: Continue home Lopressor and lisinopril. ? Hyperlipidemia: Continue home statin. ? Depression: Continue home sertraline. DVT prophylaxis: Not indicated, on Eliquis CODE STATUS: DNR CCA, DNI Microbiology Past 72 Hours 06/02/24 15:44 Mucosa - Nose Respiratory Panel (PCR) - Final 06/02/24 11:36 Mucosa - Nose SARS-CoV-2, Influenza & RSV (PCR) - Final Laboratory Results 06/02/24 11:37: Lactic Acid 3.7 H* 06/02/24 14:21: Procalcitonin 0.20 H 06/02/24 16:55: Lactic Acid 1.8, Troponin T Hi Sens 2 Hr 23 H 06/03/24 05:02: WBC Cancelled, Corrected WBC Cancelled, RBC Cancelled, Hgb Cancelled, Hct Cancelled, MCV Cancelled, MCH Cancelled, MCHC Cancelled, RDW Std Deviation Cancelled, RDW Coeff of Giles Cancelled, Plt Count Cancelled, MPV Cancelled, Diff Path Review Cancelled, Sodium 142, Potassium 4.2, Chloride 103, Carbon Dioxide 24.5, Anion Gap 15, BUN 32 H, Creatinine 1.09, Estim Creat Clear Calc 48.29 L, Est GFR (MDRD) Non-Af 54 L, BUN/Creatinine Ratio 29.5 H, Glucose 157 H, Calcium 9.6 06/03/24 06:35: WBC 12.3 H, RBC 3.02 L, Hgb 8.8 L, Hct 29.9 L, MCV 99.0 D, MCH 29.1, MCHC 29.4 L D, RDW Std Deviation 64.7 H, RDW Coeff of Giles 18.1 H, Plt Count 92 L, MPV 13.9 H Clinical Impression(s) from Imaging Studies Chest X-Ray 06/02/24 11:07 IMPRESSION: Cardiomegaly with mild congestion. Reading Location: [facility] Echocardiogram 06/02/24 13:32 Interpretation Summary Normal LV size. The left ventricular ejection fraction is 40 %. Mild concentric left ventricular hypertrophy. There is mild global hypokinesis of the left ventricle. Pulmonary artery systolic pressure is 52 mmHg. There are no echocardiographic indications of cardiac tamponade. Compared to previous study, the left ventricular systolic function has improved.. Ordering Physician: Wilbert Umanzor Referring Physician: Kory Ibarra Performed By: Kasandra Whitten RDCS Charges/Coding Visit Charges Inpatient E&M: 73519 Subs Hosp L2
[2024-06-03] MEDS: dilTIAZem 30 MG Tablet PO (14:47)
[2024-06-03] MEDS: Furosemide 40 MG/4 ML Vial IV (17:22)
[2024-06-03] MEDS: Atorvastatin Calcium 10 MG Tablet PO (21:29)
[2024-06-03] MEDS: Docusate Sodium 100 MG Capsule PO (21:29)
[2024-06-03] MEDS: 0.9% Saline Lock 10 ML Syringe IV (21:31)
[2024-06-04] VITALS (13 sets, daily range): BP systolic 119–133; BP diastolic 63–82; PULSE 85–121; RESP 12–20; TEMP 36.3–36.7; O2SAT 95–99
[2024-06-04] MEDS: dilTIAZem 30 MG Tablet PO ×3 (00:24→13:17)
[2024-06-04] MEDS: 0.9% Saline Lock 10 ML Syringe IV ×2 (05:39→13:19)
[2024-06-04] MEDS: Methylprednisolone Sod Succ 40 MG/ML VIAL IV ×3 (05:42→21:17)
[2024-06-04 06:03] LABS: Absolute Lymphocyte Count 0.77 X10^3/uL (0.83-4.51); Absolute Neutrophil Count 12.3 X10^3/uL (2.0-7.7); Basophil# 0.02 X10^3/uL; Basophil% 0.1 % (0-1); Hematocrit 29.1 % (37-47); Hemoglobin 8.7 g/dL (12.0-15.0); Lymphocyte # 0.77 X10^3/ul (0.83-4.51); Lymphocyte % 5.3 % (19-41); Mean Corp Hgb Conc 29.9 g/dL (32-36); Mean Corpuscular Hgb 29.7 pg (27.0-32.0); Mean Corpuscular Volume 99.3 fL (81-99); Mean Platelet Vol. 13.3 fl (6.2-12.0); Monocyte# 1.23 X10^3/uL; Monocyte% 8.4 % (0-10); NRBC Flagged by Analyzer 0.3 % (0-5); Neutrophil # 12.25 X10^3/uL (2.7-7.7); POSITIVE COUNT YES; Platelet Count 90 K/mm3 (150-450); RBC Distribution Width CV 17.8 % (11.6-14.6); RBC Distribution Width SD 63.7 fl (35.1-43.9); Red Blood Count 2.93 M/mm3 (4.2-5.4); White Blood Count 14.6 K/mm3 (4.4-11.0)
[2024-06-04 06:25] LABS: Anion Gap 13 (5-15); BUN 37 mg/dL (4-19); BUN/Creat Ratio 39.9 RATIO (10-20); Calcium,Total 9.6 mg/dL (7.6-11.0); Carbon Dioxide 26.4 mmol/L (21.0-32.0); Chloride 101 mmol/L (98-108); Creatinine, Serum 0.94 mg/dL (0.70-1.20); EST Glomerular Filtration Rate 64 (>60); Estimated Creatinine Clearance 55.99 ml/min (50-250); Glucose 153 mg/dL (70-99); Potassium 4.1 mmol/L (3.3-5.1); Sodium Level 140 mmol/L (133-145)
[2024-06-04] MEDS: Ipratropium/Albuterol Sulfate 3 ML AMPUL.NEB INHALATION ×3 (07:30→20:19)
[2024-06-04] MEDS: guaiFENesin 1,200 MG Tablet 1200 MG PO (09:48)
[2024-06-04] MEDS: Docusate Sodium 100 MG Capsule PO ×2 (09:49→21:15)
[2024-06-04] MEDS: Metoprolol Tartrate 25 MG Tablet 75 MG PO ×2 (09:50→21:16)
[2024-06-04] MEDS: Folic Acid 1 MG Tablet PO (09:51)
[2024-06-04] MEDS: APIXABAN 5 MG TABLET PO ×2 (09:51→21:16)
[2024-06-04] MEDS: Furosemide 40 MG/4 ML Vial IV ×2 (09:51→18:03)
--- NOTE | 2024-06-04 13:52 | PCM.PN.HOSP ---
Reason for Visit Reason for Visit: Diagnoses Unspecified atrial fibrillation (06/02/24) Acute diastolic (congestive) heart failure (06/02/24) Chronic obstructive pulmonary disease with (acute) exacerbation (06/02/24) Objective Data Objective Data Vital Signs: Vital Signs Temp Pulse Resp BP Pulse Ox O2 Del Method O2 Flow Rate 97.5 F L 105 H 18 119/70 99 Nasal Cannula 2 06/04/24 13:23 06/04/24 13:23 06/04/24 13:23 06/04/24 13:23 06/04/24 13:23 06/04/24 13:23 06/04/24 13:23 FiO2 30 06/03/24 22:25 Oxygen Flow Rate (L/min) 2 Oxygen Delivery Method Nasal Cannula Weight: 216 lb 4.375 oz Body Mass Index (BMI) 43.7 Intake & Output: Intake and Output for Last 24 Hours 06/02/24 06/03/24 06/04/24 23:59 23:59 23:59 Intake Total 460 / 860 1180 / 1420 240 / 240 Output Total 1550 / 2250 850 / 850 Balance 460 / 360 -370 / -830 -610 / -610 Lab / Micro Data 06/04/24 05:20 06/04/24 05:20 Labs: Laboratory Results - last 24 hr 06/04/24 05:20: WBC 14.6 H, RBC 2.93 L, Hgb 8.7 L, Hct 29.1 L, MCV 99.3 H, MCH 29.7, MCHC 29.9 L, RDW Std Deviation 63.7 H, RDW Coeff of Giles 17.8 H, Plt Count 90 L, MPV 13.3 H, Immature Gran % (Auto) 2.200 H, Neut % (Auto) 84.0 H, Lymph % (Auto) 5.3 L, [place] % (Auto) 8.4, Eos % (Auto) 0.0, Baso % (Auto) 0.1, Absolute Neuts (auto) 12.3 H, Absolute Lymphs (auto) 0.77 L, Nucleated RBC % 0.3, Sodium 140, Potassium 4.1, Chloride 101, Carbon Dioxide 26.4, Anion Gap 13, BUN 37 H, Creatinine 0.94, Estim Creat Clear Calc 55.99, Est GFR (MDRD) Non-Af 64, BUN/Creatinine Ratio 39.9 H, Glucose 153 H, Calcium 9.6 Micro: Microbiology 06/02/24 11:37 Blood Culture (Wb) - Left Hand Blood Culture - Preliminary No growth in 48 hours. 06/02/24 11:37 Blood Culture (Wb) - Right Wrist Blood Culture - Preliminary No growth in 48 hours. 06/02/24 15:44 Mucosa - Nose Respiratory Panel (PCR) - Final 06/02/24 11:36 Mucosa - Nose SARS-CoV-2, Influenza & RSV (PCR) - Final Physical Exam Narrative Seen and examined. In the bed no shortness of breath was better yesterday but feels little worse today with dyspnea on exertion. Complain of chest congestion. She also has wheezing. Oxygen requirement remains same 2 L/min. Physical exam General: Alert, Oriented x3, Cooperative. Morbid obesity BMI 43.7 kg/m? HEENT: Atraumatic, PERRLA, EOMI, Normocephalic Oral: No Gingival or Mucosal Lesions/ Ulcerations Neck: Supple, No JVD, Negative Carotid Bruits Chest wall/Lungs: Air entry diminished in bilateral lung bases. Mild bilateral rhonchi and wheezing Cardiovascular: Irregular rate and rhythm, Normal S1, Normal S2, No M/G/R Abdomen: Bowel Sounds Present, Soft, Non Tender, Non-Distended : No dysuria. No renal angle tenderness. No suprapubic tenderness. Extremities: Mild pedal edema, Capillary Refill Less than 3 Seconds Skin: No rashes, No breakdown Musculoskeletal: No Tenderness to Palpation of Joints or Extremities Neurological: Cranial nerves II-XII grossly intact, DTR 2+/4. No acute focal neurological deficit. Psych/Mental Status: Normal Affect, Appropriate. Assessment & Plan Assessment/Plan (1) COPD exacerbation: (2) Acute heart failure with preserved ejection fraction (HFpEF): (3) Atrial fibrillation with RVR: PLAN: Plan Patient is a 74-year-old female who presented to [facility] ED on 06/02/2024 with worsening shortness of breath. Usually she is on 1.5 to 2 L of O2 24/ and uses CPAP at night with oxygen. History of COPD/asthma overlap. No fever but cough, shortness of breath for 5 to 6 days. History of A-fib 1. Suspected predominant acute HFrEF exacerbation and pulmonary hypertension in setting of chronic hypoxic respiratory failure: Patient is being admitted in PCU. Chest x-ray initially reviewed and shows cardiomegaly and mild pulmonary venous congestion. 2D echo from 06/03 shows EF 40%, PASP 52 mmHg, mild global HK of LV, mild concentric LVH. No evidence of cardiac tamponade. Previous echo on 05/07 showed EF 60% with moderate to severe pulmonary hypertension. It shows recovery from EF 20 to 25% in 2017. Lactic acid 3.7 probably due to hypoxia/decreased perfusion from heart failure. Repeat lactic acid normal. Troponin and . Patient does not have chest pain or pressure. Increased troponin from CHF exacerbation. Cardiac demand Furosemide 40 mg IV twice daily. Heart failure core measures including intake and output, fluid restriction less than 1500 mL, daily weight monitoring, kidney and electrolytes monitoring. 06/04: Continue IV Lasix. Electrolytes in normal range. I expect discharge tomorrow. 2. Possible mild COPD exacerbation with CHRISTIANNE on CPAP: Patient is being managed on scheduled bronchodilator, IV Solu-Medrol, Mucinex, incentive spirometry and Pep. Triple PCR for SARS-CoV-2, flu and RSV are negative. Respiratory panel negative 06/04: Mild leukocytosis due to IV Solu-Medrol otherwise does not seem has infection. No fever 3. Permanent A-fib with RVR on admission: ? Follows with Cardiology at [facility]. Was previously on digoxin but this was discontinued during recent hospitalization due to toxicity as noted below. Heart rate better but 108 216/min. Continue home Lopressor 75 mg twice daily and order IV Lopressor 5 mg every 6 hours as needed for heart rate greater than 130. Continue home Eliquis. 4. Recent prolonged hospitalization ? Recently hospitalized from 04/27-05/08 at [facility], see HPI for further details. The hospital course was notable for influenza A infection, MSSA pneumonia, NICK and digoxin toxicity. Patient was able to be discharged home without therapy on 05/08. Chronic medical conditions: ? Class III obesity: BMI 43 on admit. Complicates hospital course, care and prognosis. ? Hypertension: Continue home Lopressor and lisinopril. ? Hyperlipidemia: Continue home statin. ? Depression: Continue home sertraline. DVT prophylaxis: Not indicated, on Eliquis CODE STATUS: DNR CCA, DNI Microbiology Past 72 Hours 06/02/24 11:37 Blood Culture (Wb) - Left Hand Blood Culture - Preliminary No growth in 48 hours. 06/02/24 11:37 Blood Culture (Wb) - Right Wrist Blood Culture - Preliminary No growth in 48 hours. 06/02/24 15:44 Mucosa - Nose Respiratory Panel (PCR) - Final 06/02/24 11:36 Mucosa - Nose SARS-CoV-2, Influenza & RSV (PCR) - Final Laboratory Results 06/04/24 05:20: WBC 14.6 H, RBC 2.93 L, Hgb 8.7 L, Hct 29.1 L, MCV 99.3 H, MCH 29.7, MCHC 29.9 L, RDW Std Deviation 63.7 H, RDW Coeff of Giles 17.8 H, Plt Count 90 L, MPV 13.3 H, Immature Gran % (Auto) 2.200 H, Neut % (Auto) 84.0 H, Lymph % (Auto) 5.3 L, [place] % (Auto) 8.4, Eos % (Auto) 0.0, Baso % (Auto) 0.1, Absolute Neuts (auto) 12.3 H, Absolute Lymphs (auto) 0.77 L, Nucleated RBC % 0.3, Sodium 140, Potassium 4.1, Chloride 101, Carbon Dioxide 26.4, Anion Gap 13, BUN 37 H, Creatinine 0.94, Estim Creat Clear Calc 55.99, Est GFR (MDRD) Non-Af 64, BUN/Creatinine Ratio 39.9 H, Glucose 153 H, Calcium 9.6 Clinical Impression(s) from Imaging Studies Chest X-Ray 06/02/24 11:07 IMPRESSION: Cardiomegaly with mild congestion. Reading [facility] Echocardiogram 06/02/24 13:32 Interpretation Summary Normal LV size. The left ventricular ejection fraction is 40 %. Mild concentric left ventricular hypertrophy. There is mild global hypokinesis of the left ventricle. Pulmonary artery systolic pressure is 52 mmHg. There are no echocardiographic indications of cardiac tamponade. Compared to previous study, the left ventricular systolic function has improved.. Ordering Physician: Wilbert Umanzor Referring Physician: Kory Ibarra Performed By: Kasandra Whitten RDCS Charges/Coding Visit Charges Inpatient E&M: 47500 Subs Hosp L2
[2024-06-04] MEDS: Atorvastatin Calcium 10 MG Tablet PO (21:16)
[2024-06-04] MEDS: Nystatin Powder 15gm Bottle 1 APPLIC TOPICAL (21:18)
[2024-06-04] MEDS: Sertraline 50 MG Tablet PO (21:18)
[2024-06-04] MEDS: guaiFENesin/D-Methorphan TAB.SR.12H 2 TABLET PO (21:23)
[2024-06-04] MEDS: dilTIAZem 60 MG Tablet PO (21:23)
[2024-06-05] VITALS (10 sets, daily range): BP systolic 116–133; BP diastolic 57–65; PULSE 80–101; RESP 12–20; TEMP 36.3–36.6; O2SAT 93–100
[2024-06-05] MEDS: Methylprednisolone Sod Succ 40 MG/ML VIAL IV ×2 (05:49→14:31)
[2024-06-05] MEDS: dilTIAZem 60 MG Tablet PO ×2 (05:49→14:31)
[2024-06-05] MEDS: 0.9% Saline Lock 10 ML Syringe IV (05:50)
[2024-06-05 06:23] LABS: Absolute Lymphocyte Count 0.59 X10^3/uL (0.83-4.51); Absolute Neutrophil Count 10.7 X10^3/uL (2.0-7.7); Basophil# 0.02 X10^3/uL; Basophil% 0.2 % (0-1); Hematocrit 29.4 % (37-47); Hemoglobin 8.7 g/dL (12.0-15.0); Lymphocyte # 0.59 X10^3/ul (0.83-4.51); Lymphocyte % 4.6 % (19-41); Mean Corp Hgb Conc 29.6 g/dL (32-36); Mean Corpuscular Hgb 29.2 pg (27.0-32.0); Mean Corpuscular Volume 98.7 fL (81-99); Mean Platelet Vol. 14.3 fl (6.2-12.0); Monocyte# 1.14 X10^3/uL; NRBC Flagged by Analyzer 0.2 % (0-5); Neutrophil # 10.72 X10^3/uL (2.7-7.7); Neutrophil % 84.3 % (47-70); POSITIVE COUNT YES; POSITIVE DIFFERENTIAL YES; Platelet Count 90 K/mm3 (150-450); RBC Distribution Width CV 17.2 % (11.6-14.6); RBC Distribution Width SD 62.4 fl (35.1-43.9); Red Blood Count 2.98 M/mm3 (4.2-5.4); White Blood Count 12.7 K/mm3 (4.4-11.0)
[2024-06-05] MEDS: Ipratropium/Albuterol Sulfate 3 ML AMPUL.NEB INHALATION ×3 (06:44→15:23)
[2024-06-05 06:57] LABS: Anion Gap 11 (5-15); BUN 37 mg/dL (4-19); BUN/Creat Ratio 43.8 RATIO (10-20); Calcium,Total 9.7 mg/dL (7.6-11.0); Chloride 101 mmol/L (98-108); Creatinine, Serum 0.84 mg/dL (0.70-1.20); EST Glomerular Filtration Rate 74 (>60); Estimated Creatinine Clearance 62.66 ml/min (50-250); Glucose 161 mg/dL (70-99); Potassium 3.9 mmol/L (3.3-5.1); Sodium Level 141 mmol/L (133-145)
--- NOTE | 2024-06-05 09:19 | PN.HOSP_ITS ---
Reason for Visit Reason for Visit: Diagnoses Unspecified atrial fibrillation (06/02/24) Acute diastolic (congestive) heart failure (06/02/24) Chronic obstructive pulmonary disease with (acute) exacerbation (06/02/24) Subjective Subjective Feeling good. Breathing better overall. Objective Data Objective Data Vital Signs: Vital Signs Temp Pulse Resp BP Pulse Ox O2 Del Method O2 Flow Rate 36.4 C L 82 18 119/57 L 93 Nasal Cannula 2 06/05/24 04:16 06/05/24 06:44 06/05/24 06:44 06/05/24 04:16 06/05/24 06:44 06/05/24 06:44 06/05/24 06:44 FiO2 30 06/05/24 00:00 Oxygen Flow Rate (L/min) 2 Oxygen Delivery Method Nasal Cannula Weight: 98.1 kg Body Mass Index (BMI) 43.7 Intake & Output: Intake and Output for Last 24 Hours 06/03/24 06/04/24 06/05/24 23:59 23:59 23:59 Intake Total 1180 / 1420 600 / 600 Output Total 1550 / 2250 1150 / 1150 500 / 500 Balance -370 / -830 -550 / -550 -500 / -500 Lab / Micro Data 06/05/24 05:53 06/05/24 05:53 Labs: Laboratory Results - last 24 hr 06/05/24 05:53: WBC 12.7 H, RBC 2.98 L, Hgb 8.7 L, Hct 29.4 L, MCV 98.7, MCH 29.2, MCHC 29.6 L, RDW Std Deviation 62.4 H, RDW Coeff of Giles 17.2 H, Plt Count 90 L, MPV 14.3 H, Immature Gran % (Auto) 1.900 H, Neut % (Auto) 84.3 H, Lymph % (Auto) 4.6 L, [place] % (Auto) 9.0, Eos % (Auto) 0.0, Baso % (Auto) 0.2, Absolute Neuts (auto) 10.7 H, Absolute Lymphs (auto) 0.59 L, Nucleated RBC % 0.2, Sodium 141, Potassium 3.9, Chloride 101, Carbon Dioxide 29.0, Anion Gap 11, BUN 37 H, Creatinine 0.84, Estim Creat Clear Calc 62.66, Est GFR (MDRD) Non-Af 74, B UN/Creatinine Ratio 43.8 H, Glucose 161 H, Calcium 9.7 Micro: Microbiology 06/02/24 11:37 Blood Culture (Wb) - Left Hand Blood Culture - Preliminary No growth in 48 hours. 06/02/24 11:37 Blood Culture (Wb) - Right Wrist Blood Culture - Preliminary No growth in 48 hours. 06/02/24 15:44 Mucosa - Nose Respiratory Panel (PCR) - Final 06/02/24 11:36 Mucosa - Nose SARS-CoV-2, Influenza & RSV (PCR) - Final Physical Exam Const alert and no apparent distress Resp normal respiratory effort, no retractions, no use of accessory muscles and clear to auscultation bilaterally Cardio regular rate, regular rhythm, S1 normal heart sound and S2 normal heart sound GI normal to inspection, nondistended, normoactive bowel sounds, soft to palpation, non-tender and non-distended Extremity normal to inspection and no clubbing, cyanosis or edema Neuro Sensorium / Orientation: awake and alert Assessment & Plan Assessment/Plan (1) Acute heart failure with preserved ejection fraction (HFpEF): PLAN: on IV furosemide. Continue lisinopril 10 home oxygen evaluation PLAN: Plan COPD exacerbation: methylpred and BDs. Afib: anticoagulated w apixaban. continue metoprolol VTE prophylaxis: not indicated as already on apixaban. DC home.
--- NOTE | 2024-06-05 09:29 | CASEMGMT ---
Discharge Planning [facility] declined d/t not being in network. Pt unable to provide choices and asked me to call her daughter. VM left for pts daughter. Marivel Urbano DC Planning Asst.
[2024-06-05] MEDS: Lisinopril 10 MG Tablet PO (09:42)
[2024-06-05] MEDS: Docusate Sodium 100 MG Capsule PO (09:42)
[2024-06-05] MEDS: APIXABAN 5 MG TABLET PO (09:43)
[2024-06-05] MEDS: Metoprolol Tartrate 25 MG Tablet 75 MG PO (09:44)
[2024-06-05] MEDS: Furosemide 40 MG/4 ML Vial IV (09:44)
[2024-06-05] MEDS: Folic Acid 1 MG Tablet PO (09:44)
[2024-06-05] MEDS: guaiFENesin/D-Methorphan TAB.SR.12H 2 TABLET PO (09:46)
[2024-06-05] MEDS: Nystatin Powder 15gm Bottle 1 APPLIC TOPICAL (09:56)
--- NOTE | 2024-06-05 11:49 | CASEMGMT ---
Addendum entered by Marivel Urbano 06/05/24 12:41: [facility] declined. Calll rec'd from pts daughter who states her aoc is [facility]. Ria updated. BRITTANY, TIFFANIE, and Benito asked to cancel referral. BELLA ROWE updated. Marivel Urbano DC Planning Asst Addendum entered by Marivel Urbano 06/05/24 12:29: Danni, Katelyn, and [facility] have declined. Ria has accepted. Marivel Urbano DC Planning Asst. Addendum entered by Marivel Urbano 06/05/24 11:54: [facility] and [facility] have declined. Marivel Urbano DC Planning Asst. Original Note: Discharge Planning HH referrals sent to Amanda [facility]azo, [facility], BRITTANY, TIFFANIE, Katelyn, [facility], Benito, Ria, and [facility]. Marivel Urbano DC Planning Asst.
--- NOTE | 2024-06-05 12:42 | PCM.DC.SUM ---
Providers Date of Admission: 06/02/24 Primary Care Physician: Dr. Kory Ibarra DO Reason For Visit: COPD VS CHF EXACERBATION Diagnosis Discharge Diagnosis (1) Acute heart failure with preserved ejection fraction (HFpEF): Status: Acute Code(s): I50.31 - Acute diastolic (congestive) heart failure Plan: acute HFrEF. EF 40% on echo improved from 2017 (20-25%) on IV furosemide. Change back to PO. Continue lisinopril 10 home oxygen evaluation (2) Atrial fibrillation with RVR: Status: Acute Code(s): I48.91 - Unspecified atrial fibrillation Plan: metoprolol decreased from 100 to 75mg BID. Stable on diltiazem Q6h. Follow up with cardiology. Plan COPD exacerbation: methylpred and BDs. Change to PO prednisone. Afib: anticoagulated w apixaban. continue metoprolol VTE prophylaxis: not indicated as already on apixaban. DC home. Medications at Discharge Home Medications furosemide 40 mg tablet 40 mg PO BID diuretic 10/27/13 lisinopril 10 mg tablet 20 mg PO DAILY blood pressure 01/24/16 atorvastatin 10 mg tablet 10 mg PO QHS cholesterol 07/14/16 apixaban 5 mg tablet (Eliquis) 5 mg PO BID blood thinner 01/18/22 albuterol sulfate 0.63 mg/3 mL solution for nebulization 0.63 mg (3 mL) inhalation Q4H PRN shortness of breath or wheezing #75 mL 01/22/22 guaifenesin 1,200 mg tablet, extended release 12 hr (Mucus Relief ER) 1,200 mg PO BID cough #10 tabs 01/22/22 folic acid 1 mg tablet 1 mg PO DAILY see PCP 05/25/24 sertraline 50 mg tablet 50 mg PO QHS mental health 05/25/24 docusate sodium 100 mg capsule (Col-Rite) 100 mg PO BID PRN constipation 06/03/24 albuterol sulfate 90 mcg/actuation aerosol inhaler 1 inh inhalation Q6H #6.7 grams 06/05/24 diltiazem HCl 60 mg tablet 60 mg PO Q8 #120 tabs 06/05/24 metoprolol tartrate 25 mg tablet 75 mg (3 x 25 mg) PO BID #180 tabs 06/05/24 prednisone 20 mg tablet 40 mg (2 x 20 mg) PO DAILY #10 tabs 06/05/24 tiotropium bromide 18 mcg capsule with inhalation device (Spiriva with HandiHaler) 1 cap inhalation DAILY #30 inhalations 06/05/24 Hospital Course Operations None Procedures 2-D Echocardiogram Summary of Care Provided Minutes Spent on Discharge: 32 Weight / BMI Weight Weight: 98.1 kg Body Mass Index (BMI) 43.7 ABG / Lab / Microbiology Data 06/05/24 05:53 06/05/24 05:53 Laboratory: Laboratory Results - last 24 hr 06/05/24 05:53: WBC 12.7 H, RBC 2.98 L, Hgb 8.7 L, Hct 29.4 L, MCV 98.7, MCH 29.2, MCHC 29.6 L, RDW Std Deviation 62.4 H, RDW Coeff of Giles 17.2 H, Plt Count 90 L, MPV 14.3 H, Immature Gran % (Auto) 1.900 H, Neut % (Auto) 84.3 H, Lymph % (Auto) 4.6 L, [place] % (Auto) 9.0, Eos % (Auto) 0.0, Baso % (Auto) 0.2, Absolute Neuts (auto) 10.7 H, Absolute Lymphs (auto) 0.59 L, Nucleated RBC % 0.2, Sodium 141, Potassium 3.9, Chloride 101, Carbon Dioxide 29.0, Anion Gap 11, BUN 37 H, Creatinine 0.84, Estim Creat Clear Calc 62.66, Est GFR (MDRD) Non-Af 74, BUN/Creatinine Ratio 43.8 H, Glucose 161 H, Calcium 9.7 Microbiology: Microbiology 06/02/24 11:37 Blood Culture (Wb) - Left Hand Blood Culture - Preliminary No growth in 48 hours. 06/02/24 11:37 Blood Culture (Wb) - Right Wrist Blood Culture - Preliminary No growth in 48 hours. 06/02/24 15:44 Mucosa - Nose Respiratory Panel (PCR) - Final 06/02/24 11:36 Mucosa - Nose SARS-CoV-2, Influenza & RSV (PCR) - Final D/C Instructions Discharge Diet: 2000 mg Sodium Diet and - (1.5 liters fluid per day. ) DC O2, CPAP, BIPAP Needs PSN CPAP & BiPAP: BiPAP & CPAP Settings per PSN Mode AVAPS 06/05/24 00:00 Bipap Delivery Device Face Mask 06/05/24 00:00 BiPAP Expiratory Pressure 8 06/05/24 00:00 BiPAP Rate 12 06/05/24 00:00 Fraction of Inspired Oxygen ( 30 06/05/24 00:00 FIO2) Home O2 Discharge instructions: Yes Type of respiratory needs?: Oxygen Oxygen frequency: Continuous Continuous oxygen liters per minute: 2 DC home with Oxygen: Yes Home O2 MD Review: I have reviewed the oxygen testing, and the patient qualifies for home oxygen equipment and portability. The patient is mobile in the home and the community. Meaningful Use Info Meaningful Use Meaningful Use Diagnoses (Choose all that apply): CHF CHF JAQUELIN/ARB ordered at discharge?: Yes Documented LVEF (%): 40 Ischemic Stroke Statin Dosing Therapy Reference: STATIN DOSE THERAPY REFERENCE: * Patients > 75 years receive moderate or high dose statin therapy. * Patients 75 years or YOUNGER should receive HIGH intensity statin dose unless contraindicated. You will be required to document reason for non-treatment if statin daily dose does not meet guidelines. HIGH DOSE STATIN THERAPY DAILY Atorvastatin > than or = to 40 mg Rosuvastatin > than or = to 20 mg Amlodipine + Atorvastatin > than or = to 2.5/40 mg Ezetimibe + Simvastatin 10/80 mg Simvastatin 80mg Discharge Plan Admission Admit Date/Time: 06/02/24 13:30 Primary Reason for Your Visit: CHF exacerbation. COPD exacerbation. Attending Provider: John Paul Will Primary Care Provider: Kory Ibarra Consulting Providers: Wilbert Umanzor; Raul Helton Instructions Patient Instructions: Heart Failure Flare Up Signs, Heart Failure: Tracking Your Weight, Heart Failure Make Changes Diet, Heart Failure Dc, Heart Failure Care Discharge Orders/Prescriptions Prescriptions: New diltiazem HCl 60 mg Tablet 60 mg PO Q8 Qty: 120 0RF metoprolol tartrate 25 mg Tablet 75 mg PO BID Qty: 180 0RF tiotropium bromide [Spiriva with HandiHaler] 18 mcg capsule, w/inhalation device 1 cap inhalation DAILY Qty: 30 0RF Rx Instructions: puncture 1 cap using device; one dose = 2 inhalations prednisone 20 mg tablet 40 mg PO DAILY Qty: 10 0RF albuterol sulfate 90 mcg/actuation HFA aerosol inhaler 1 inh inhalation Q6H Qty: 6.7 0RF Continued folic acid 1 mg tablet 1 mg PO DAILY furosemide 40 MG tablet 40 mg PO BID Patient Comments: Water pill sertraline 50 mg tablet 50 mg PO QHS Patient Comments: Anti-depressant/anxiety lisinopril 10 MG tablet 20 mg PO DAILY Patient Comments: BLOOD PRESSURE/HEART atorvastatin 10 MG tablet 10 mg PO QHS Patient Comments: CHOLESTEROL Eliquis 5 mg tablet 5 mg PO BID guaifenesin [Mucus Relief ER] 1,200 mg Tablet Extended Release 12hr 1,200 mg PO BID Qty: 10 0RF albuterol sulfate 0.63 mg/3 mL solution for nebulization 0.63 mg inhalation Q4H PRN (Reason: shortness of breath or wheezing) Qty: 75 0RF docusate sodium [Col-Rite] 100 mg capsule 100 mg PO BID PRN (Reason: constipation) Discontinued amoxicillin-pot clavulanate 875-125 mg tablet 1 tab PO Q12H 10 Days Qty: 20 0RF potassium chloride [Klor-Con M20] 20 MEQ tablet 20 meq PO DAILY Patient Comments: SUPPLEMENT digoxin [Digox] 125 MCG tablet 125 mcg PO DAILY Patient Comments: HEART metoprolol tartrate 50 MG tablet 100 mg PO BID Patient Comments: Heart rate/blood pressure amoxicillin-pot clavulanate 875-125 mg tablet 1 tab PO BID Qty: 14 0RF Referrals / Follow Up: Kory Ibarra DO [Primary Care Provider] - Elidia Irene DO [Non-Staff] - Charges/Coding Visit Charges Inpatient E&M: 12074 Disch Hosp >30min
--- NOTE | 2024-06-05 14:59 | CHAPLAIN ---
Type of Pastoral Visit __x_ Initial Visit ___ Follow-up Visit ___ On-call Visit ___ General Patient Visit ___ Spiritual Assessment ___ Family Conference ___ Bereavement ___ Rapid Response ___ Code Blue ___ Other (describe below) Pastoral Care Referral From _x__ Patient ___ Family ___ Nurse ___ Physician ___ Doubler Operator ___ Batch And Furnace Operator ___ Other (describe below) Sacrament/Intervention _x__ Active listening ___ Anointing ___ Mu-Ism ___ Bereavement ___ Communion ___ Kylie exploration ___ _x__ Life review ___ Prayer ___ Reconciliation ___ Sacrament of Sick _x_ Supportive presence ___ Wedding ___ Other (describe below) Pastoral Comments patient states that she is doing better and does not have worries; pt lives with a daughter and family; pt states that she has no evident worries and takes it all 'just one day at a time'; RN was active at this time to give medications and assess the patient
--- NOTE | 2024-06-05 15:45 | CASEMGMT ---
Patient has order for discharge. HHC has been setup with [facility]. RN CM updated discharge plan. RN CM in to discuss discharge with patient, updated regarding [facility]. Patient denies further needs at this time. RN CM called daughter and left message regarding order for discharge and to call PCU for further information.
== END 2024-06-05 19:19 | disposition home health service (06) | DRG 291 ==
LOC: ED 13:11 → PCU 13:36
PROVIDERS: Internal Medicine; Admitting Provider Hospitalist; Emergency Provider Emergency Medicine; PCP Family Medicine; Referring Provider Hospitalist
DX: I11.0 Hypertensive heart disease with heart failure (principal); J96.21 Acute and chronic respiratory failure with hypoxia; I50.23 Acute on chronic systolic (congestive) heart failure; J44.1 Chronic obstructive pulmonary disease with (acute) exacerbation; Z68.41 Body mass index [BMI] 40.0-44.9, adult; I48.21 Permanent atrial fibrillation; Z66 Do not resuscitate; I27.20 Pulmonary hypertension, unspecified; F32.A Depression, unspecified; E78.5 Hyperlipidemia, unspecified; G47.33 Obstructive sleep apnea (adult) (pediatric); D72.828 Other elevated white blood cell count; T38.0X5A Adverse effect of glucocorticoids and synthetic analogues, initial encounter; E66.813 Obesity, class 3; Z79.01 Long term (current) use of anticoagulants; Z99.81 Dependence on supplemental oxygen; Z79.899 Other long term (current) drug therapy; Z86.19 Personal history of other infectious and parasitic diseases
CPT/HCPCS: 36415; 71045; 80048; 83605; 83880; 84145; 84484; 85025; 85027; 87040; 87631; 87633; 93005; 93306; 94002; 94003; 94640; 94668; 94762; 97110; 97162; 97166; 97530; 97802; 99252; 99285; Q9957; A4216; G0463; J1940

== ENCOUNTER 2024-08-24 18:32 | Inpatient (IN) | payer MEDICARE, MEDICAID, SELFPAY ==
[2024-08-24] VITALS (11 sets, daily range): BP systolic 105–121; BP diastolic 68–93; PULSE 108–132; RESP 22–26; TEMP 36.7–37.1; O2SAT 96–100; BMI 43.5
--- NOTE | 2024-08-24 18:50 | ED.RN ---
pt states daughter will be here and can answer about my meds.
--- NOTE | 2024-08-24 18:52 | ED.VIS.DYS ---
HPI History of Present Illness Chief Complaint: Shortness of Breath Informant: patient Onset/Context/Timing Onset: Weeks (1) Context: gradual Timing: Continuous Quality: Positive for Dyspnea on exertion and Orthopnea (Two-pillow) Worsened by: Exertion and Lying flat Relieved by: Albuterol Associated Symptoms cough; Negative for rhinorrhea, post nasal drip, ear pain, fever, sore throat, chills, sweats, clear sputum, white sputum, yellow sputum or green sputum Chest Pain: Positive for None Narrative Narrative: Patient presents with shortness of breath that has been getting worse over the past week. Patient states her breathing is worse with any exertion. Patient states she can only walk a few feet before she becomes short of breath and has to stop. Patient admits to a cough but denies any sputum production. Patient states that he did have some brown sputum earlier this week but this has resolved. Patient denies any fevers or chills. Patient denies any rhinorrhea or sore throat. Patient denies any chest pain. PE Risk Factors: Negative for Cancer, OCP + Smoking + > 35, Prior DVT or PE, Recent immobilization, Recent surgery or Recent travel [facility] Medical History Congestive heart failure (CHF) Anxiety Pulmonary embolism COPD (chronic obstructive pulmonary disease) Non-smoker CPAP (continuous positive airway pressure) dependence On home oxygen therapy Atrial fibrillation Hypertension Asthma Depression Atrial fibrillation with RVR Anticoagulant long-term use Acute respiratory failure with hypoxia Obstructive sleep apnea Congestive heart failure (CHF) Dyslipidemia HTN (hypertension) Paroxysmal atrial fibrillation Morbid obesity with body mass index of 50.0-59.9 in adult Home Medications ?Medication ?Instructions ?Recorded ?Last Taken ?Type furosemide 40 mg tablet 40 mg PO BID diuretic 10/27/13 07/14/16 History lisinopril 10 mg tablet 20 mg PO DAILY blood pressure 01/24/16 07/14/16 History atorvastatin 10 mg tablet 10 mg PO QHS cholesterol 07/14/16 07/13/16 History apixaban 5 mg tablet (Eliquis) 5 mg PO BID blood thinner 01/18/22 Unknown History albuterol sulfate 0.63 mg/3 mL 0.63 mg (3 mL) inhalation Q4H PRN 01/22/22 Unknown Rx solution for nebulization shortness of breath or wheezing #75 mL guaifenesin 1,200 mg tablet, 1,200 mg PO BID cough #10 tabs 01/22/22 Unknown Rx extended release 12 hr (Mucus Relief ER) folic acid 1 mg tablet 1 mg PO DAILY see PCP 05/25/24 Unknown History sertraline 50 mg tablet 50 mg PO QHS mental health 05/25/24 Unknown History docusate sodium 100 mg capsule 100 mg PO BID PRN constipation 06/03/24 Unknown History (Col-Rite) albuterol sulfate 90 mcg/actuation 1 inh inhalation Q6H #6.7 grams 06/05/24 Unknown Rx aerosol inhaler diltiazem HCl 60 mg tablet 60 mg PO Q8 #120 tabs 06/05/24 Unknown Rx metoprolol tartrate 25 mg tablet 75 mg (3 x 25 mg) PO BID #180 tabs 06/05/24 Unknown Rx prednisone 20 mg tablet 40 mg (2 x 20 mg) PO DAILY #10 tabs 06/05/24 Unknown Rx tiotropium bromide 18 mcg capsule 1 cap inhalation DAILY #30 06/05/24 Unknown Rx with inhalation device (Spiriva inhalations with HandiHaler) azithromycin 250 mg tablet mg PO 08/24/24 Unknown History calcitonin (salmon) 200 1 spray DAILY 08/24/24 Unknown History unit/actuation nasal spray ferrous sulfate 324 mg (65 mg 324 mg PO BID 08/24/24 Unknown History iron) tablet,delayed release ipratropium 0.5 mg-albuterol 3 mg 3 ml inhalation 08/24/24 Unknown History (2.5 mg base)/3 mL nebulization soln lisinopril 20 mg tablet 20 mg PO DAILY 08/24/24 Unknown History metoprolol tartrate 100 mg tablet 200 mg PO 08/24/24 Unknown History mometasone-formoterol HFA 100 inhalation 08/24/24 Unknown History mcg-5 mcg/actuation aerosol inhaler (Dulera) ondansetron HCl 4 mg tablet 4 mg PO Q12H PRN PRN 08/24/24 Unknown History nausea/vomiting potassium chloride 10 mEq 10 meq PO BID 08/24/24 Unknown History tablet,extended release(part/cryst) potassium chloride 20 mEq 20 meq PO DAILY 08/24/24 Unknown History tablet,extended release(part/cryst) risedronate 35 mg tablet mg PO 08/24/24 Unknown History tiotropium bromide 2.5 2 puff inhalation DAILY 08/24/24 Unknown History mcg/actuation mist for inhalation (Spiriva Respimat) Allergy/AdvReac Type Severity Reaction Status Date / Time bee venom protein (honey Allergy Other Verified 08/24/24 18:34 bee) (bee sting) Opioids - Morphine Analogues Allergy Other Verified 08/24/24 18:34 (narcotics) Tetanus Vaccines and Toxoid Allergy Unknown Verified 08/24/24 18:34 (Tetanus Vaccines & Toxoid) Family History Grandmother Breast cancer Father CVA (cerebral vascular accident) Surgical History H/O oophorectomy History of appendectomy Social History household members: children and none housing: house number of children: 2 current occupational status: retired pets and animals: Yes (2 dogs/2 cats) Smoking Status: Never smoker alcohol intake: never substance use type: does not use ROS ROS ED Constitutional Constitutional ED: Denies chills or fever(s) Eyes Eyes: Denies blurry vision or change in vision ENT ENT ED: Denies rhinorrhea or sore throat Cardiovascular Cardiovascular: Denies chest pain or palpitations Respiratory/Chest Respiratory/Chest: Reports cough and dyspnea Gastrointestinal Gastrointestinal: Denies nausea or vomiting Genitourinary Genitourinary ED: Denies dysuria or hematuria Musculoskeletal Musculoskeletal: Denies back pain or neck pain Integumentary Denies abscess or rash Neurologic Neurologic: Denies headache(s) or weakness Allergic/Immunologic Allergic/Immunologic ED: Denies mouth swelling or urticaria EXAM Physical Exam Const Vital Signs: 08/24/24 18:34 08/24/24 18:38 08/24/24 18:45 Temperature 98.1 F 98.1 F Temperature Source Oral Oral Pulse Rate 128 H 128 H Respiratory Rate 26 H 26 H Respiratory Effort Normal Respiratory Depth Normal Respiratory Pattern Normal Blood Pressure 118/80 118/80 Blood Pressure Mean 92 92 Pulse Ox 100 100 Oxygen Delivery Method Nasal Cannula Nasal Cannula Nasal Cannula Oxygen Flow Rate (L/min) 4 4 3 08/24/24 19:38 08/24/24 20:00 08/24/24 20:04 Temperature 98.8 F 98.8 F Temperature Source Oral Oral Pulse Rate 121 H 121 H 126 H Respiratory Rate 23 H 23 H 23 H Respiratory Effort Respiratory Depth Respiratory Pattern Tachypnea Blood Pressure 121/75 H 121/75 H Blood Pressure Mean 90 90 Pulse Ox 100 100 Oxygen Delivery Method Nasal Cannula Nasal Cannula Oxygen Flow Rate (L/min) 4 4 08/24/24 20:59 08/24/24 22:01 Temperature 98.8 F 98.6 F Temperature Source Oral Pulse Rate 108 H 120 H Respiratory Rate 23 H 22 H Respiratory Effort Respiratory Depth Respiratory Pattern Blood Pressure 118/68 105/93 H Blood Pressure Mean 84 97 Pulse Ox 98 97 Oxygen Delivery Method Nasal Cannula Oxygen Flow Rate (L/min) 3 Positive well nourished and well developed General Appearance ED: well developed and NAD HEENT Reports moist mucous membranes Resp normal respiratory effort Auscultation: rales bilateral base and wheezes expiratory wheezes Cardio Rate: tachycardic Rhythm: abnormal rhythm irregularly irregular GI non-tender and non-distended Palpation: soft Extremity normal to inspection General Extremety ED: Negative for tenderness Neuro oriented x3, CN's II-XII intact bilaterally and no sensory deficits noted [place] Coma Scale: document GCS findings Spontaneous Obeys Commands Oriented 15 Sensorium / Orientation: alert Psych mental status grossly normal MDM MDM MDM Narrative Medical decision making narrative: Differential diagnosis includes COPD exacerbation, congestive heart failure, pneumonia, bronchitis, viral illness, electrolyte abnormality, cardiac arrhythmia, and cardiac ischemia. EKG will be obtained to assess for cardiac dysrhythmia and cardiac ischemia. Chest x-ray will be obtained to assess for pneumonia, bronchitis, and congestive heart failure. CBC will be obtained to assess for leukocytosis and anemia. Basic metabolic profile will be obtained to assess for electrolyte abnormality and renal function. BMP will be obtained to assess for congestive heart failure. High-sensitivity troponin will be obtained to assess for cardiac ischemia. 2-hour repeat high-sensitivity troponin will be obtained to assess for ongoing cardiac ischemia. Lab Data Attestation: I reviewed the patient's lab results. Lab results narrative: CBC was reviewed. There is a leukocytosis of 16.4. There is a mild anemia with a hemoglobin of 9.3 and hematocrit 31.0. Platelets were slightly low at 96. Basic metabolic profile was reviewed and was within normal limits. High-sensitivity troponin was reviewed and was slightly elevated at 21. 2-hour repeat high-sensitivity troponin was reviewed and was improved at 18. BNP was reviewed and was elevated at 5153. Urinalysis was reviewed. Leukocyte esterase was 100. There are 25-50 squamous epithelial cells. Labs: Laboratory Results - last 24 hr 08/24/24 08/24/24 08/24/24 18:40 19:38 20:40 WBC 16.4 H RBC 3.34 L Hgb 9.3 L Hct 31.0 L MCV 92.8 MCH 27.8 MCHC 30.0 L RDW Std Deviation 51.2 H RDW Coeff of Giles 14.9 H Plt Count 96 L MPV 12.9 H Immature Gran % (Auto) 0.900 Neut % (Auto) 61.8 Lymph % (Auto) 9.7 L [place] % (Auto) 27.2 H Eos % (Auto) 0.2 Baso % (Auto) 0.2 Absolute Neuts (auto) 10.1 H Absolute Lymphs (auto) 1.59 Nucleated RBC % 0 Differential Comment SCANNED Platelet Estimate MOD DEC Sodium 143 Potassium 4.7 Chloride 102 Carbon Dioxide 31.5 Anion Gap 10 BUN 19 Creatinine 0.72 Estim Creat Clear Calc 65.67 Est GFR (MDRD) Non-Af 89 BUN/Creatinine Ratio 26.2 H Glucose 89 Calcium 9.9 Troponin T High Sens 21 H D Troponin T Hi Sens 2 Hr 18 H NT pro BNP II 5153 H Urine Color Yellow Urine Clarity Clear Urine pH 5.0 Ur Specific [place] 1.020 Urine Protein 30 H Urine Glucose (UA) Normal Urine Ketones Negative Urine Occult Blood 50 H Urine Nitrite Negative Urine Bilirubin Negative Urine Urobilinogen Normal Ur Leukocyte Esterase 100 H Urine RBC 0-5 SEEN Urine WBC 0-5 SEEN Ur Squamous Epith Cells 25-50 SEEN Ur Transition Epith Cell 0-5 SEEN Uric Acid Crystals 1+ Urine Bacteria 2+ Urine Mucus 0 SEEN Radiography Chest X-Ray - ED: 2 View, Read by ED Physician, Read by Radiologist and Right Infiltrate Diagnostic Testing: Clinical Impression(s) from Imaging Studies Chest X-Ray 08/24/24 19:39 IMPRESSION: Opacification of the right middle lobe, which may reflect pneumonitis/pneumonia. Stable severe cardiomegaly. Reading Location: [facility] and lateral chest x-ray was obtained. There are 2 views. On my independent interpretation, lung nickerson show a consolidation of the right middle lobe. There is cardiomegaly. Bony thorax is normal. Radiologist also interpreted the x-ray and agrees. EKG Initial EKG: Attestation: I personally reviewed and interpreted this EKG as follows: Interpretation: No Acute Injury Pattern and Atrial Fibrillation (113) Comments: EKG was obtained. On my independent interpretation, shows atrial fibrillation with a rate of 113. QRS interval was normal at 72 ms. QTc interval was normal at 430 ms. [place] was normal. There are no acute ST or T wave changes noted. Prior EKG tracings: available for review Prior: Unchanged (06/02/2024) Management Discussion w/another healthcare provider: Hospitalist Treatment and Re-Evaluation :: Patient was given an albuterol aerosol and 125 mg of Solu-Medrol by EMS. Patient was given a DuoNeb aerosol here. Patient's heart rate remained elevated. Patient was given a dose of Cardizem here. Patient's heart rate improved to 108. However, patient's heart rate started going back up. Patient was given a dose of metoprolol. Patient's heart rate improved to 100. However, heart rate started to increase again. Patient was started on Rocephin and Zithromax. Patient was advised of her findings. Patient was advised of the need for hospitalization. Patient is agreeable with this. Case was discussed with the hospitalist. She will admit the patient to her service. Patient understood and was agreeable with the plan. All questions were answered. Discharge Plan Triage Chief Complaint: Shortness of Breath ED Provider: John Paul Harrison Dx/Rx/DC Orders Clinical Impression: Pneumonia, Atrial fibrillation with RVR, Hypoxia Prescriptions: No Action folic acid 1 mg tablet 1 mg PO DAILY furosemide 40 MG tablet 40 mg PO BID Patient Comments: Water pill sertraline 50 mg tablet 50 mg PO QHS Patient Comments: Anti-depressant/anxiety lisinopril 10 MG tablet 20 mg PO DAILY Patient Comments: BLOOD PRESSURE/HEART atorvastatin 10 MG tablet 10 mg PO QHS Patient Comments: CHOLESTEROL Eliquis 5 mg tablet 5 mg PO BID guaifenesin [Mucus Relief ER] 1,200 mg Tablet Extended Release 12hr 1,200 mg PO BID Qty: 10 0RF albuterol sulfate 0.63 mg/3 mL solution for nebulization 0.63 mg inhalation Q4H PRN (Reason: shortness of breath or wheezing) Qty: 75 0RF docusate sodium [Col-Rite] 100 mg capsule 100 mg PO BID PRN (Reason: constipation) diltiazem HCl 60 mg Tablet 60 mg PO Q8 Qty: 120 0RF metoprolol tartrate 25 mg Tablet 75 mg PO BID Qty: 180 0RF tiotropium bromide [Spiriva with HandiHaler] 18 mcg capsule, w/inhalation device 1 cap inhalation DAILY Qty: 30 0RF Rx Instructions: puncture 1 cap using device; one dose = 2 inhalations prednisone 20 mg tablet 40 mg PO DAILY Qty: 10 0RF albuterol sulfate 90 mcg/actuation HFA aerosol inhaler 1 inh inhalation Q6H Qty: 6.7 0RF ipratropium-albuterol 0.5 mg-3 mg(2.5 mg base)/3 mL solution for nebulization 3 ml inhalation azithromycin 250 mg tablet PO metoprolol tartrate 100 mg tablet 200 mg PO lisinopril 20 mg tablet 20 mg PO DAILY ondansetron HCl 4 mg tablet 4 mg PO Q12H PRN PRN (Reason: nausea/vomiting) potassium chloride 20 mEq tablet,ER particles/crystals 20 meq PO DAILY calcitonin (salmon) 200 unit/actuation spray,non-aerosol 1 spray DAILY risedronate 35 mg tablet PO potassium chloride 10 mEq tablet,ER particles/crystals 10 meq PO BID ferrous sulfate 324 mg (65 mg iron) tablet,delayed release (DR/EC) 324 mg PO BID Dulera 100-5 mcg/actuation HFA aerosol inhaler inhalation Spiriva Respimat 2.5 mcg/actuation mist 2 puff INHALATION DAILY Primary Care Provider: Kory Ibarra Referrals: Kory Ibarra DO [Primary Care Provider] - Print Language: Nam[place] Disposition Disposition: Acute Care Hospital [facility]
--- NOTE | 2024-08-24 19:17 | EKG12_ITS ---
Test Reason : DYSRYTHMIA Blood Pressure : */* mmHG Vent. Rate : 113 BPM Atrial Rate : * BPM P-R Int : * ms QRS Dur : 72 ms QT Int : 314 ms P-R-T Axes : * 57 39 degrees QTcB Int : 430 ms Atrial fibrillation with rapid ventricular response Low voltage QRS Abnormal ECG When compared with ECG of 02-Jun-2024 10:54, No significant change was found Confirmed by RANJAN OLIVIA MD ([id number]), design editor KELLIE RODRIGUEZ ([id number]) on 08/30/2024 7:28:43 AM Referred By: John Paul Harrison Confirmed By: RANJAN OLIVIA MD
--- NOTE | 2024-08-24 19:39 | RAD_ITS ---
PROCEDURE: CHEST PA AND LATERAL 08/24/2024 REASON FOR EXAM: DYSPNEA TECHNIQUE: Frontal and lateral views of the chest. COMPARISON: Chest radiograph 06/02/2024. FINDINGS: Hardware: None. Heart: Stable severe cardiomegaly with pulmonary vascular congestion. Mediastinum: The mediastinal contour is stable and grossly obscured. Lungs: Opacification within the right middle lobe. No large pleural effusion or pneumothorax. Bones: Degenerative changes are identified within the thoracic spine. RAD/Chest PA and Lateral IMPRESSION: Opacification of the right middle lobe, which may reflect pneumonitis/pneumonia . Stable severe cardiomegaly. Reading Location: [id number]
[2024-08-24 19:49] LABS: Mucous, Urine 0 SEEN /hpf (<or=2+)
[2024-08-24 19:54] LABS: Absolute Lymphocyte Count 1.59 X10^3/uL (0.83-4.51); Absolute Neutrophil Count 10.1 X10^3/uL (2.0-7.7); Basophil# 0.04 X10^3/uL; Basophil% 0.2 % (0-1); Eosinophil# 0.04 X10^3/uL; Eosinophils% 0.2 % (0-5); Hemoglobin 9.3 g/dL (12.0-15.0); Lymphocyte # 1.59 X10^3/ul (0.83-4.51); Lymphocyte % 9.7 % (19-41); Mean Corpuscular Hgb 27.8 pg (27.0-32.0); Mean Corpuscular Volume 92.8 fL (81-99); Mean Platelet Vol. 12.9 fl (6.2-12.0); Monocyte# 4.45 X10^3/uL; Monocyte% 27.2 % (0-10); NRBC Flagged by Analyzer 0 % (0-5); Neutrophil # 10.09 X10^3/uL (2.7-7.7); Neutrophil % 61.8 % (47-70); POSITIVE COUNT YES; POSITIVE DIFFERENTIAL YES; Platelet Count 96 K/mm3 (150-450); RBC Distribution Width CV 14.9 % (11.6-14.6); RBC Distribution Width SD 51.2 fl (35.1-43.9); Red Blood Count 3.34 M/mm3 (4.2-5.4); White Blood Count 16.4 K/mm3 (4.4-11.0)
[2024-08-24] MEDS: Ipratropium/Albuterol Sulfate 3 ML AMPUL.NEB INHALATION (20:04)
[2024-08-24 20:06] LABS: Differential Indicated SCAN CRITERIA MET
[2024-08-24 20:14] LABS: Pro- Brain NATRIURETIC PEPTIDE 5153 pg/mL (<=900)
[2024-08-24 20:21] LABS: Anion Gap 10 (5-15); BUN 19 mg/dL (4-19); BUN/Creat Ratio 26.2 RATIO (10-20); Calcium,Total 9.9 mg/dL (7.6-11.0); Carbon Dioxide 31.5 mmol/L (21.0-32.0); Chloride 102 mmol/L (98-108); Creatinine, Serum 0.72 mg/dL (0.70-1.20); EST Glomerular Filtration Rate 89 (>60); Estimated Creatinine Clearance 65.67 ml/min (50-250); Glucose 89 mg/dL (70-99); Potassium 4.7 mmol/L (3.3-5.1); Sodium Level 143 mmol/L (133-145)
[2024-08-24] MEDS: dilTIAZem 25 MG/5 ML Vial IV BOLUS (20:22)
[2024-08-24 20:26] LABS: Color, Urine Yellow (Yellow); Glucose, Dipstick Normal (Normal); Ketone-Dipstick Negative (Negative); Leukocyte Esterase-Dipstick 100 /ul (Negative); Nitrite-Dipstick Negative (Negative); Occult Blood-Urine 50 /ul (Negative); Protein-Dipstick 30 mg/dl (Negative); Urine Bilirubin Dipstick Negative (Negative); Urine Clarity Clear (Clear); Urine Urobilinogen Normal (Normal)
[2024-08-24 20:30] LABS: Troponin T High Sensitivity 21 ng/L (<=14)
[2024-08-24 21:16] LABS: Troponin T High Sens 2 HR 18 ng/L (<=14)
[2024-08-24] MEDS: Ceftriaxone 2 GM in 0.9% Normal Saline (50mL MB+) 50 ML IV (21:16)
[2024-08-24 21:24] LABS: Bacteria 2+ /hpf (None Seen)
[2024-08-24 21:26] LABS: Squamous Epithelial Cells - UA 25-50 SEEN /hpf (5-10)
[2024-08-24 21:27] LABS: Uric Acid Crystals Ur 1+ /hpf (<or=1+)
[2024-08-24 21:28] LABS: Red Blood Cells-Urine 0-5 SEEN /hpf (0-5); Transitional Epithelial - Ur 0-5 SEEN /hpf (0-5); White Blood Cells 0-5 SEEN /hpf (0-5)
[2024-08-24 21:39] LABS: Differential Comment SCANNED; Platelet Estimate MOD DEC (ADEQ)
[2024-08-24] MEDS: Metoprolol Tartrate 5 MG/5 ML Vial IV (21:54)
[2024-08-24] MEDS: Azithromycin 500 MG in 0.9% Normal Saline (250mL Bag) 250 ML 255 MG IV (21:59)
--- NOTE | 2024-08-24 23:01 | CT_ITS ---
PROCEDURE: CHEST WITHOUT CONTRAST 08/24/2024 REASON FOR EXAM: HYPOXIA TECHNIQUE: Chest CT without contrast. Coronal and Sagittal reconstruction series were provided. One or more dose reduction techniques were used (e.g., Automated exposure control, adjustment of the mA and/or kV according to patient size, use of iterative reconstruction technique RADIATION DOSE SUMMARY: CTDlvol: 16.59 mGy DLP: 596 mGycm COMPARISON: Chest radiograph on 08/24/2014. FINDINGS: Moderate cardiomegaly. Mild pericardial effusion. Minimal bilateral pleural effusions. Passive atelectatic airspace disease of the lower lobes. Subsegmental atelectasis of the right middle lobe. Associated pneumonic consolidation is considered. Subsegmental atelectasis in the left lower lobe. Associated pneumonic consolidation is considered. Moderate coronary artery calcifications. Moderate interstitial pulmonary congestion. Enlarged main pulmonary artery, probably pulmonary arterial hypertension. Osteopenia. Severe subacute benign osteoporotic compression fracture of T12 vertebral body with mild associated retropulsion and increased dorsal kyphosis. Diffuse spondylosis. Hepatomegaly. Diffuse irregularity of the hepatic contour, probably chronic. Normal unenhanced main pulmonary artery and right and left pulmonary arteries. Normal bilateral peripheral pulmonary arteries. Calcified atheromatous plaques of the thoracic aorta and visualized great vessels. There is no demonstrated aortic aneurysm. Normal mediastinum. Normal hilar regions. Normal visualized trachea and bronchi. CT/Chest without Contrast IMPRESSION: IMPRESSION: Coronary artery calcification (CAC) is is present Moderate cardiomegaly. Mild pericardial effusion. Minimal bilateral pleural effusions. Passive atelectatic airspace disease of the lower lobes. Subsegmental atelectasis of the right middle lobe. Associated pneumonic consol idation is considered. Subsegmental atelectasis in the left lower lobe. Associated pneumonic consolid ation is considered. Moderate coronary artery calcifications. Moderate interstitial pulmonary congestion. Enlarged main pulmonary artery, probably pulmonary arterial hypertension. Osteopenia. Severe subacute benign osteoporotic compression fracture of T12 vertebral body with mild associated retropulsion and increased dorsal kyphosis. Diffuse spondylosis. Hepatomegaly. Diffuse irregularity of the hepatic contour, probably chronic. Reading Location[facility]
[2024-08-24] MEDS: Diltiazem 125 MG in Dextrose 5%-Water (100mL Bag) 100 ML IV (23:04)
--- NOTE | 2024-08-24 23:13 | PCM.HP.STD ---
HPI - General General Date of Admission: 08/24/24 Date of Service: 08/24/24 Chief Complaint: Shortness of breath HPI Narrative GUNNER BAKER, is a 74 F who presented to the emergency department at [facility] on 08/24/2024 that she complained of shortness of breath. Patient complained of significant dyspnea on exertion and orthopnea with 2 pillows. She denies any chest pain. She has had a cough that developed over the last week that is now only starting to become productive of any sputum. She has had no fever or chills and no upper respiratory symptoms. She denies any wheezing. She does states she has had some lower extremity swelling. Unclear if she has gained any weight recently. She wears chronic oxygen for COPD at 1 to 2 L at home. She does have some conversational dyspnea on exam. Vital signs on presentation showed a temperature of 98.1, heart rate 128, respiratory was 26, blood pressure was 118/80 and pulse ox was 100% on 4 L nasal cannula as she was hypoxic on her baseline. CBC does show leukocytosis with a white count of 16.4. She does appear to have some chronic leukocytosis however. She has a chronic anemia which was stable. She has no left shift. Chemistry panel is unremarkable. Lactic acid was normal. Initial troponin was 21 with a delta of 18. BNP was 5153. Chest x-ray showed a right sided infiltrate in the right middle lobe with stable severe cardiomegaly. I did get a CT of her chest given this finding and it showed moderate cardiomegaly with a mild pericardial effusion, minimal bibasilar pleural effusions with atelectatic airspace disease in the lower lobes right middle lobe and left middle lobe with associated pneumonic consolidation to be considered. It was felt she also had moderate interstitial pulmonary congestion. Overall, I highly think that this is more likely an acute exacerbation of CHF however with the infiltrate on chest x-ray and CT as well as leukocytosis we will be prudent to start antibiotics as well. Do not think she needs steroids at this time as she is not wheezing diffusely on exam. [facility] Medical History (Updated 08/25/24 @ 03:[address] Jemima Poe DO) Thrombocytopenia Anemia Congestive heart failure (CHF) Anxiety Pulmonary embolism COPD (chronic obstructive pulmonary disease) Non-smoker CPAP (continuous positive airway pressure) dependence On home oxygen therapy Atrial fibrillation Hypertension Asthma Depression Atrial fibrillation with RVR Anticoagulant long-term use Acute respiratory failure with hypoxia Obstructive sleep apnea Congestive heart failure (CHF) Dyslipidemia HTN (hypertension) Paroxysmal atrial fibrillation Morbid obesity with body mass index of 50.0-59.9 in adult Home Medications ?Medication ?Instructions ?Recorded ?Last Taken ?Type furosemide 40 mg tablet 40 mg PO BID diuretic 10/27/13 07/14/16 History lisinopril 10 mg tablet 20 mg PO DAILY blood pressure 01/24/16 07/14/16 History atorvastatin 10 mg tablet 10 mg PO QHS cholesterol 07/14/16 07/13/16 History apixaban 5 mg tablet (Eliquis) 5 mg PO BID blood thinner 01/18/22 Unknown History albuterol sulfate 0.63 mg/3 mL 0.63 mg (3 mL) inhalation Q4H PRN 01/22/22 Unknown Rx solution for nebulization shortness of breath or wheezing #75 mL guaifenesin 1,200 mg tablet, 1,200 mg PO BID cough #10 tabs 01/22/22 Unknown Rx extended release 12 hr (Mucus Relief ER) folic acid 1 mg tablet 1 mg PO DAILY see PCP 05/25/24 Unknown History sertraline 50 mg tablet 50 mg PO QHS mental health 05/25/24 Unknown History docusate sodium 100 mg capsule 100 mg PO BID PRN constipation 06/03/24 Unknown History (Col-Rite) albuterol sulfate 90 mcg/actuation 1 inh inhalation Q6H #6.7 grams 06/05/24 Unknown Rx aerosol inhaler diltiazem HCl 60 mg tablet 60 mg PO Q8 #120 tabs 06/05/24 Unknown Rx metoprolol tartrate 25 mg tablet 75 mg (3 x 25 mg) PO BID #180 tabs 06/05/24 Unknown Rx prednisone 20 mg tablet 40 mg (2 x 20 mg) PO DAILY #10 tabs 06/05/24 Unknown Rx tiotropium bromide 18 mcg capsule 1 cap inhalation DAILY #30 06/05/24 Unknown Rx with inhalation device (Spiriva inhalations with HandiHaler) azithromycin 250 mg tablet mg PO 08/24/24 Unknown History calcitonin (salmon) 200 1 spray DAILY 08/24/24 Unknown History unit/actuation nasal spray ferrous sulfate 324 mg (65 mg 324 mg PO BID 08/24/24 Unknown History iron) tablet,delayed release ipratropium 0.5 mg-albuterol 3 mg 3 ml inhalation 08/24/24 Unknown History (2.5 mg base)/3 mL nebulization soln lisinopril 20 mg tablet 20 mg PO DAILY 08/24/24 Unknown History metoprolol tartrate 100 mg tablet 200 mg PO 08/24/24 Unknown History mometasone-formoterol HFA 100 inhalation 08/24/24 Unknown History mcg-5 mcg/actuation aerosol inhaler (Dulera) ondansetron HCl 4 mg tablet 4 mg PO Q12H PRN PRN 08/24/24 Unknown History nausea/vomiting potassium chloride 10 mEq 10 meq PO BID 08/24/24 Unknown History tablet,extended release(part/cryst) potassium chloride 20 mEq 20 meq PO DAILY 08/24/24 Unknown History tablet,extended release(part/cryst) risedronate 35 mg tablet mg PO 08/24/24 Unknown History tiotropium bromide 2.5 2 puff inhalation DAILY 08/24/24 Unknown History mcg/actuation mist for inhalation (Spiriva Respimat) Allergy/AdvReac Type Severity Reaction Status Date / Time bee venom protein (honey Allergy Other Verified 08/24/24 18:34 bee) (bee sting) Opioids - Morphine Analogues Allergy Other Verified 08/24/24 18:34 (narcotics) Tetanus Vaccines and Toxoid Allergy Unknown Verified 08/24/24 18:34 (Tetanus Vaccines & Toxoid) Family History Grandmother Breast cancer Father CVA (cerebral vascular accident) Surgical History H/O oophorectomy History of appendectomy Social History household members: children and none housing: house number of children: 2 current occupational status: retired pets and animals: Yes (2 dogs/2 cats) Smoking Status: Never smoker alcohol intake: never substance use type: does not use ROS Constitutional Constitutional: Reports weakness; Denies anorexia, change in weight, chills, fatigue, fever(s), malaise, night sweats or other Eyes Eyes: Denies blurry vision, change in eye color, change in vision, discharge from eye(s), double vision, erythema, eye pain, loss of vision or other ENT HEENT: Denies abnormal hearing, dysphagia, ear pain, epistaxis, headache(s), hearing loss, nasal congestion, nasal discharge, post nasal drip, sinus pressure, sore throat or other Cardiovascular Cardiovascular: Reports edema, orthopnea, paroxysmal nocturnal dyspnea and rapid heart rate; Denies chest pain, claudication, dyspnea on exertion, lightheadedness, palpitations, syncope or other Respiratory/Chest Respiratory/Chest: Reports cough and shortness of breath with exertion; Denies dyspnea, excessive phlegm production, hemoptysis, productive cough, shortness of breath at rest, wheezing or other Gastrointestinal Gastrointestinal: Denies abdominal pain, coffee ground emesis, constipation, diarrhea, dyspepsia, hematemesis, hematochezia, loose stools, melena, nausea, vomiting or other Genitourinary Genitourinary: Denies burning urination, difficulty urinating, dysuria, hematuria, nocturia, urinary frequency, urinary hesitancy, urinary incontinence, urinary urgency or other Musculoskeletal Musculoskeletal: Denies arthralgias, back pain, joint pain, joint stiffness, joint swelling, myalgias, neck pain or other Neurologic Neurologic: Denies abnormal gait, abnormal speech, confusion, disequilibrium, dizziness, focal weakness, headache(s), numbness, paresthesias, seizure-like activity, seizures, syncope, tingling, tremor(s) or other Psychiatric Psychiatric: Denies anxiety, depression, homicidal ideation, suicidal ideation or other Endocrine Endocrinology: Denies change in body appearance, cold intolerance, excessive sweating, heat intolerance, polydipsia, polyuria or other Hematologic/Lymphatic Hematologic/Lymphatic: Denies anemia, easy bleeding, easy bruising, lymphadenopathy or other Allergic/Immunologic Allergic/Immunologic: Denies rhinitis, hives, eczemia, asthma or other Vital Signs Vital Signs Vital Signs: 08/24/24 18:34 08/24/24 18:38 08/24/24 18:45 Temperature 98.1 F 98.1 F Temperature Source Oral Oral Pulse Rate 128 H 128 H Respiratory Rate 26 H 26 H Respiratory Effort Normal Respiratory Depth Normal Respiratory Pattern Normal Blood Pressure 118/80 118/80 Blood Pressure Mean 92 92 Pulse Ox 100 100 Oxygen Delivery Method Nasal Cannula Nasal Cannula Nasal Cannula Oxygen Flow Rate (L/min) 4 4 3 06/12/25 19:38 08/24/24 20:00 08/24/24 20:04 Temperature 98.8 F 98.8 F Temperature Source Oral Oral Pulse Rate 121 H 121 H 126 H Respiratory Rate 23 H 23 H 23 H Respiratory Effort Respiratory Depth Respiratory Pattern Tachypnea Blood Pressure 121/75 H 121/75 H Blood Pressure Mean 90 90 Pulse Ox 100 100 Oxygen Delivery Method Nasal Cannula Nasal Cannula Oxygen Flow Rate (L/min) 4 4 08/24/24 20:59 08/24/24 22:01 08/24/24 22:47 Temperature 98.8 F 98.6 F Temperature Source Oral Pulse Rate 108 H 120 H 124 H Respiratory Rate 23 H 22 H 23 H Respiratory Effort Respiratory Depth Respiratory Pattern Blood Pressure 118/68 105/93 H 109/73 Blood Pressure Mean 84 97 85 Pulse Ox 98 97 97 Oxygen Delivery Method Nasal Cannula Nasal Cannula Oxygen Flow Rate (L/min) 3 2 08/24/24 23:04 Temperature 98.6 F Temperature Source Oral Pulse Rate 132 H Respiratory Rate 23 H Respiratory Effort Respiratory Depth Respiratory Pattern Blood Pressure 116/80 Blood Pressure Mean 92 Pulse Ox 99 Oxygen Delivery Method Oxygen Flow Rate (L/min) 2 Weight Weight: 97.8 kg Body Mass Index (BMI) 43.5 Physical Exam Const alert, oriented x3, no apparent distress and well nourished; Negative for average body habitus or healthy appearing Constitutional Narrative: Morbidly obese, white female, sitting up in bed, some conversational dyspnea but does not Perricone comfortable, does not look toxic, very pleasant General Appearance: cooperative HEENT normocephalic, head/scalp atraumatic, hearing grossly normal bilaterally and moist oral mucous membranes HEENT Narrative: Mallampati 3, no thrush, patient is edentulous Eyes conjunctivae normal Eyes Narrative: No scleral icterus Neck supple Neck Narrative: Trachea midline, mild JVD, no LAD Resp No normal respiratory effort, no retractions, no use of accessory muscles and No clear to auscultation bilaterally Resp Narrative: Diffusely diminished with crackles at bases bilaterally, mild conversational dyspnea with no signs of extremis Auscultation: crackles; Negative for rhonchi or wheezes Cardio S1 normal heart sound, S2 normal heart sound, no murmurs, no rub, no gallops and no clicks Cardio Narrative: Irregularly irregular with tachycardia GI normal to inspection, nondistended, normoactive bowel sounds, soft to palpation and non-tender GI Narrative: Large protuberant abdomen Extremity Extremity Narrative: 1+ bilateral lower extremity edema, no cyanosis or clubbing Neuro oriented x3, moves all extremities and no focal motor deficits Neuro Narrative: Debility noted at baseline Speech: speech normal Psych affect normal Psych Narrative: Eye contact is good and patient interacts appropriately Results Lab / Micro Data 08/24/24 18:40 08/24/24 18:40 Labs: Laboratory Results - last 24 hr 08/24/24 18:40: WBC 16.4 H, RBC 3.34 L, Hgb 9.3 L, Hct 31.0 L, MCV 92.8, MCH 27.8, MCHC 30.0 L, RDW Std Deviation 51.2 H, RDW Coeff of Giles 14.9 H, Plt Count 96 L, MPV 12.9 H, Immature Gran % (Auto) 0.900, Neut % (Auto) 61.8, Lymph % (Auto) 9.7 L, Schley % (Auto) 27.2 H, Eos % (Auto) 0.2, Baso % (Auto) 0.2, Absolute Neuts (auto) 10.1 H, Absolute Lymphs (auto) 1.59, Nucleated RBC % 0, Differential Comment SCANNED, Platelet Estimate MOD DEC, Sodium 143, Potassium 4.7, Chloride 102, Carbon Dioxide 31.5, Anion Gap 10, BUN 19, Creatinine 0.72, Estim Creat Clear Calc 65.67, Est GFR (MDRD) Non-Af 89, BUN/Creatinine Ratio 26.2 H, Glucose 89, Calcium 9.9, Troponin T High Sens 21 H D, NT pro BNP II 5153 H 08/24/24 19:38: Urine Color Yellow, Urine Clarity Clear, Urine pH 5.0, Ur Specific Rickman 1.020, Urine Protein 30 H, Urine Glucose (UA) Normal, Urine Ketones Negative, Urine Occult Blood 50 H, Urine Nitrite Negative, Urine Bilirubin Negative, Urine Urobilinogen Normal, Ur Leukocyte Esterase 100 H, Urine RBC 0-5 SEEN, Urine WBC 0-5 SEEN, Ur Squamous Epith Cells 25-50 SEEN, Ur Transition Epith Cell 0-5 SEEN, Uric Acid Crystals 1+, Urine Bacteria 2+, Urine Mucus 0 SEEN 08/24/24 20:40: Troponin T Hi Sens 2 Hr 18 H Imaging Radiology Impression Chest X-Ray 08/24/24 19:39 IMPRESSION: Opacification of the right middle lobe, which may reflect pneumonitis/pneumonia. Stable severe cardiomegaly. Reading Location: [facility] Assessment & Plan Assessment/Plan (1) Hypoxia: (2) Abnormal chest x-ray: (3) Acute on chronic heart failure with reduced ejection fraction (HFrEF, <= 40%): (4) Atrial fibrillation with RVR: (5) Leukocytosis: PLAN: Plan Acute hypoxia on chronic hypoxic respiratory failure secondary to HFrEF/possible right-sided infiltrate versus atelectasis - Patient uses 1 to 2 L at baseline - Requiring 4 L at the time of admission but does not meet criteria for acute hypoxic respiratory failure - Most recent echo on 06/03/2024 shows an EF of 40% with mild LVH and global moderate hypokinesis with pulmonary artery systolic pressures of 52 mmHg -CT of the chest showed possible infiltrate versus atelectasis at the bases and right side of the chest given this we will be aggressive and start antibiotics for now -Low threshold to just continue if patient rapidly improves with diuresis -Respiratory viral panel is pending - COVID-19 is pending - Strep pneumo and Legionella antigens are pending -Will utilize ceftriaxone and azithromycin for now -Aggressive pulmonary toilet with scheduled DuoNebs and as needed albuterol -I-S -Acapella -Mucinex 1200 p.o. twice daily - Lasix 40 mg IV push twice daily - BNP is markedly elevated - No need for a repeat echocardiogram as she just had one in May - Daily weights - Fluid and sodium restricted diet - Accurate I's and O's Chronic A. fib with current RVR -Patient states she has persistent atrial fibrillation and is typically well managed with metoprolol per med rec -Follows with cardiology at [facility] -Will try to avoid Cardizem due to depressed EF of 40% -Continue home metoprolol but increase to 100 mg twice daily from 75 mg twice daily -Continue apixaban -We will monitor on telemetry -Heart rate seems to be improving and was in the low 100s at the time of my evaluation COPD/asthma - Patient is oxygen dependent at baseline - Treatment as noted above - Restart inhalers at discharge Hypertension -Continue home lisinopril -Continue home metoprolol at increased dose due to tachycardia -Continue Lasix but utilize IV for now due to heart failure Hyperlipidemia -Continue home atorvastatin History of PE - Continue full anticoagulation with apixaban 5 mg p.o. twice daily CHRISTIANNE -Continue CPAP Morbid obesity -Recommend weight loss -BMI is 43.3 -Complicates treatment, prognosis, outcomes DVT prophylaxis -Continue home apixaban CODE STATUS -DNR CCA with no intubation Sepsis Attestation Sepsis Alert: Yes Sepsis Attestation: Sepsis Ruled Out (Patient qualified with endorgan damage having thrombocytopenia however this is a chronic etiology for her.) Date exam was performed: 08/24/24 Time exam was performed: 23:32 Charges/Coding Visit Charges Inpatient E&M: 96237 Init Hosp L2
[2024-08-25] VITALS (28 sets, daily range): BP systolic 106–132; BP diastolic 57–81; PULSE 89–140; RESP 16–28; TEMP 36.5–36.9; O2SAT 91–99; BMI 42.3; BMI 43.1
--- OUTSIDE RECORDS SUMMARY | 2024-08-25 00:11 | XMS RPT_ITS | CCD ---
Author Organization [facility] Care Team Providers Care Shop Director Name Role Phone Bethel Freeman Unavailable Unavailable UNKNOWN, PROVIDER Unavailable Unavailable Petrilla, Kory Unavailable Unavailable Petrilla, Kory F Primary Care Provider Petrilla, Kory F Primary Care Provider Petristanleya DO, Kory F Primary Care Provider [phone] Petrilla DO, Kory F Primary Care Provider Petrilla DO, Kory F Primary Care Provider Petrilla DO, Kory F Primary Care Provider Tonya, Kory Primary Care Unavailable Benita Moon Attending Unavailable PROVIDER, UNKNOWN Referring Unavailable Petrilla, Kory Primary Care Unavailable GENE MALDONADO Attending Unavailable PROVIDER, UNKNOWN Referring Unavailable GENE MALDONADO Attending Unavailable Petrilla, Kory Primary Care Unavailable PROVIDER, UNKNOWN Referring Unavailable Benita Moon Attending Unavailable Petrilla, Kory Primary Care Unavailable PROVIDER, UNKNOWN Referring Unavailable Chelo Huitron Attending Unavailable Petrilla, Kory Primary Care Unavailable PROVIDER, UNKNOWN Referring Unavailable Petrilla, Kory Primary Care Unavailable PROVIDER, UNKNOWN Referring Unavailable Petrilla, Kory Attending Unavailable Fred, Kory Attending Unavailable PROVIDER, UNKNOWN Referring Unavailable Petrilla, Kory Primary Care Unavailable PROVIDER, UNKNOWN Referring Unavailable Ino Ly Attending Unavailable Tonya, Kory Primary Care Unavailable PROVIDER, UNKNOWN Referring Unavailable Petrilla, Kory Primary Care Unavailable Petrilla, Kory Attending Unavailable PROVIDER, UNKNOWN Referring Unavailable Ino Ly Attending Unavailable Tonya, Kory Primary Care Unavailable Dr. Kory Ibarra Primary Care Provider [phone] Dr. David Plasencia Emergency Provider Dr. Jemima Poe Admit Provider Dr. Jemima Poe Attending Provider Dr. Jemima Poe Other Provider Dr. Luna Bustamante Attending Provider Robby, Dr. Luna Raya Other Provider Dr. Jimbo Ibarra Attending Provider Dr. Jimbo Ibarra Other Provider Neftalylla DO, Kory F Primary Care Provider [phone] Petrilla DO, Kory F Primary Care Provider Petrilla, Kory F Primary Care Provider Petrilla DO, Kory F Primary Care Provider Petria DO, [facility] Primary Care Provider Petria DO, Kory Wily Primary Care Provide r Jamie Jimenez MD Unavailable Petrilla DO, Kory F Primary Care Provider [phone] Jamie Jimenez MD Unavailable Maria Victoria BECKER, Dr. Brenner Primary Care Provider Dr. Davis Irene DO Referring Provider Scott Escudero Attending Provider Maria Teresa BECKER, Dr. Mead Emergency Provider Fred BECKER, Dr. Horn Primary Care Provider Erna BECKER, Dr. Atkins Admit Provider Dr. Wilbert Umanzor DO Attending Provider Dr. Wilbert Umanzor DO Referring Provider Erna BECKER, Dr. Atkins Other Provider Dr. John Paul Will DO Attending Provider Danie POLANCO, Dr. Carter Other Provider Xiao POLANCO, Dr. Dean Attending Provider [phone] Danie POLANCO, Dr. Carter Attending Provider Dr. John Paul Will DO Other Provider Petrilla, Kory Primary Care Unavailable Jermaine Hagen Attending Unavailable Sheets, Davis Referring Unavailable Sheets, Davis Primary Care Unavailable Scott Escudero Attending Unavailable Koram, Luna Dorota Consulting Unavailable Sheets, Davis Primary Care Unavailable Rayo, Kavin Referring Unavailable Koram, Luna Dorota Admitting Unavailable Koram, Luna Dorota Attending Unavailable Mosteller, Wilbert Attending Unavailable Petrilla, Kory Primary Care Unavailable Mosteller, Wilbert Consulting Unavailable Mosteller, Wilbert Admitting Unavailable Mosteller, Wilbert Referring Unavailable Raul Helton Attending Unavailable Raul Helton Consulting Unavailable Sheets, Davis Primary Care Unavailable Rayo, Kavin Referring Unavailable Koram, Luna Dorota Admitting Unavailable Koram, Luna Dorota Attending Unavailable Mosteller, Wilbert Consulting Unavailable Petrilla, Kory Primary Care Unavailable John Paul Will Attending Unavailable Mosteller, Wilbert Admitting Unavailable Mosteller, Wilbert Referring Unavailable Raul Helton Consulting Unavailable John Paul Will Attending Unavailable John Paul Will Consulting Unavailable Briana BLANCO, Sindy Unavailable UnavailMIRANDA Orr Referring Unavailable PETRILLA, KORY WILY Primary Care Unavail able PETRILLA, KORY WILY Primary Care Unavail able MIRANDA MARION Attending Unavailable PETRILLA, KORY WILY Primary Care Unavail able PETRILLA, KORY Primary Care Unavailable PETRILLA, KORY Attending Unavailable PETRILLA, KORY Referring Unavailable PETRILLA, KORY Primary Care Unavailable PETRILLA, KORY Attending Unavailable PETRILLA, KORY Primary Care Unavailable ABEBAHEIMELIAS G Referring Unavailable PETRILLA, KORY Primary Care Unavailable PETRILLA, KORY Primary Care Unavailable EILEEN JEFFERS Attending Unavailabl e ROBYN ASTORGA Consulting Unavailable RAYA, YANELIS Admitting Unavailable PETRILLA, KORY Attending Unavailable PETRILLA, KORY Primary Care Unavailable PETRILLA, KORY Primary Care Unavailable NESHEIM, ELIAS G Attending Unavailable KELLIE MALDONADO Referring Unavailable PETRILLA, KORY Primary Care Unavailable PETRILLA, KORY Primary Care Unavailable CURT LAST Referring Unavailable CURT LAST Attending Unavailable PETRILLA, KORY Referring Unavailable PETRILLA, KORY Primary Care Unavailable PETRILLA, KORY Attending Unavailable PETRILLA, KORY Primary Care Unavailable CURT LAST Referring Unavailable LASTCURT Randhawa Attending Unavailable PETRILLA, KORY Primary Care Unavailable SAMAD, BENITA Attending Unavailable PETRILLA, KORY Attending Unavailable PETRILLA, KORY Primary Care Unavailable PETRILLA, KORY Primary Care Unavailable CHELO HUITRON Attending Unavailable PETRILLA, KORY Attending Unavailable PETRILLA, KORY Primary Care Unavailable PETRILLA, KORY Primary Care Unavailable LASTCURT Randhawa Attending Unavailable PETRILLA, KORY Primary Care Unavailable KRAYNCHELO STARK Attending Unavailable PETRILLA, KORY Primary Care Unavailable PETRILLA, KORY Attending Unavailable PETRILLA, KORY Primary Care Unavailable KELLIE MALDONADO Attending Unavailable PETRILLA, KORY Primary Care Unavailable CURT CAPUTO Attending Unavailable TONE ÁLVAREZ Consulting Unavailable USHAWPIERO, OSAAFSHAN Admitting Unavailable CURT GRAHAM Consulting Unavailable PETRILLA, KORY Attending Unavailable PETRILLA, KORY Primary Care Unavailable PETRILLA, KORY Referring Unavailable PETRILLA, KORY Attending Unavailable PETRILLA, KORY Primary Care Unavailable PETRILLA, KORY Referring Unavailable PETRILLA, KORY Primary Care Unavailable SAMAD, BENITA Referring Unavailable SAMAD, BENITA Attending Unavailable PETRILLA, KORY Primary Care Unavailable LAST, CURT Attending Unavailable PETRILLA, KORY Primary Care Unavailable SAMAD, BENITA Attending Unavailable PETRILLA, KORY Referring Unavailable PETRILLA, KORY Primary Care Unavailable PETRILLA, KORY Attending Unavailable Allergies Allergy Classification Reported Allergen(s) Allergy Type Date of Onset Reaction(s) Facility HMG-CoA Reductase Inhibitors (statins) (3 sources) Hmg-Coa Reductase Inhibitors (Statins) Drug Allergy 7 [facility] Opioid Agonists (4 sources) oxyCODONE Drug Allergy 8 [facility] (20 sources) Hmg-Coa Reductase Inhibitors (Statins) Propensity to adverse reactions to drug 7 [place], [place] (20 sources) oxyCODONE; Translations: [OXYCODONE] Drug Allergy 8 Mental Status Change [place], [place] (20 sources) Tetanus vaccine Propensity to adverse reactions to drug 5 Swelling [place], [place] (20 sources) HMG-CoA reductase inhibitor Drug Intolerance 7 Other [facility] (6 sources) HMG-CoA reductase inhibitor; Translations: [[id number]-NBG-WO A REDUCTASE INHIBITORS] Drug Allergy 7 Intolerance, Myalgia [facility] Work Phone: (6 sources) Tetanus And Diphtheria Toxoids; Translations: [TETANUS AND DIPHTHERIA TOXOIDS] Drug Intolerance 9 Swelling [facility] Work Phone: (20 sources) bee venom protein (honey bee) Allergy to substance [address] [facility] (2 sources) Opioids - Morphine Analogues Allergy to substance [address] [facility] (1 source) Opioids - Morphine Analogues Drug allergy (disorder) [address] [facility] (1 source) Tetanus Vaccines and Toxoid Drug allergy (disorder) [address] [facility] (1 source) bee venom protein (honey bee) Drug allergy (disorder) [address] [facility] (20 sources) Honey bee venom Drug Allergy 5 [facility] (20 sources) Morphine Drug Allergy 5 Other [facility] Medications Current Medications Medication Drug Class(es) Dates Sig (Normalized) Sig (Original) acetaminophen 500 mg oral tablet (20 sources) Start: 02-22-2024 End: 03-03-2024 take 2 tablets by mouth every eight hours acetaminophen (Tylenol) 500 MG tablet Take 2 tablets (1,000 mg) by mouth every 8 hours for 10 days. 02/22/2024 03/03/2024 Active Start: 02-19-2024 End: 02-22-2024 take 1 tablet by mouth every eight hours 1,000 mg, Oral, Every 8 hours, First dose on 02/19/24 at 0830, Maximum dose of acetaminophen is 4000 mg from all sources in 24 hours. Start: 02-04-2024 End: 02-04-2024 1,000 mg, Oral, Once, On 02/04/24 at 2210, For 1 dose, Maximum dose of acetaminophen is 4000 mg from all sources in 24 hours. Start: 11-09-2018 acetaminophen (TYLENOL) 325 mg tablet Take 650 mg by mouth. 11/09/2018 Active Start: 06-10-2017 take 2 tablets by mo uth three times daily acetaminophen (TYLENOL) 325 MG tablet Take 2 tablets by mouth 3 times daily 120 tablet 3 06/10/2017 Active take 1 tablet by zully th every eight hours as needed for pain acetaminophen (Tylenol 8 Hour) 650 MG ER tablet Take 650 mg by mouth every 8 hours as needed for mild pain (1-3). Do not crush, chew, or split. Active Comment on above: Take 650 mg by mouth . [id number] 200 actuat albuterol 0.09 mg/actuat metered dose inhaler (20 sources) beta2-Adrenergic Agonist Start: 06-05-2024 Albuterol Sulfate 90 mcg/actuation HFA aerosol inhaler Active 1 NMA INHALATION EVERY 6 HOURS 6.7 June 05, 2024 12:00am Start: 12-21-2023 End: 05-02-2024 Start: 03-09-2023 End: 12-21-2023 take 2 puff(s) by mouth every four hours as needed for wheezing albuterol 108 (90 Base) MCG/ACT inhaler Indications: CHRISTIANNE on CPAP INHALE TWO PUFFS BY MOUTH EVERY 4 HOURS NEEDED FOR WHEEZING OR FOR SHORTNESS OF BREATH (BULK) 6.7 g 1 12/21/2023 Active Start: 12-15-2022 take 2 puff(s) by mo uth every four hours as needed for wheezing albuterol HFA (PROVENTIL HFA, VENTOLIN HFA) 90 mcg/actuation inhaler INHALE TWO PUFFS BY MOUTH EVERY 4 HOURS NEEDED FOR WHEEZING OR FOR SHORTNESS OF BREATH (BULK) 12/15/2022 Active Start: 06-16-2022 albuterol (PRO VENTIL) 2.5 mg /3 mL (0.083 %) nebulizer solution 2.5 mg every 6 hours as needed. 06/16/2022 Active Start: 01-30-2022 End: 06-19-2025 albuterol (2.5 MG/3ML) 0.083 % nebulizer solution Indications: CHRISTIANNE on CPAP Take 3 mL (2.5 mg) by nebulization every 6 hours as needed for wheezing. 75 mL 2 12/21/2023 06/19/2025 Active Start: 01-30-2022 End: 06-16-2023 take 2 puff(s) by inhalation every four hours as needed for wheezing albuterol 108 (90 Base) MCG/ACT inhaler Indications: CHRISTIANNE on CPAP , RSV (respiratory syncytial virus infection) INHALE TWO PUFFS EVERY 4 HOURS NEEDED FOR WHEEZING OR FOR SHORTNESS OF BREATH (BULK) 6.7 g 2 12/08/2022 03/09/2023 Discontinued Start: 01-22-2022 take 0.63 mg by inha lation every four hours as needed for wheezing Albuterol Sulfate 0.63 mg/3 mL solution for nebulization Active 0.63 mg INHALATION Q4H as needed for shortness of breath or wheezing 75 January 22, 2022 1:00am Comment on above: 2.5 mg every 6 hours as needed. INHALE TWO PUFFS BY MOUTH EVERY 4 HOURS NEEDED FOR WHEEZING OR FOR SHORTNESS OF BREATH (BULK) apixaban 5 mg oral tablet (20 sources) Factor Xa Inhibitor Start: 2 End: 5 take 1 tablet by mouth twice daily in the morning apixaban (Eliquis) 5 MG tablet Indications: Permanent atrial fibrillation (HCC) , Anticoagulant long-term use TAKE 1 TABLET BY MOUTH 2 TIMES DAILY 180 tablet 3 07/31/2024 9:46 AM EDT 01/25/2024 01/24/2025 Active Comment on above: Take 1 tablet by zully th two times a day. atorvastatin 10 mg oral tablet (20 sources) HMG-CoA Reductase Inhibitor Start: 5 take 1 tablet by mouth once daily atorvastatin (Lipitor) 10 MG tablet TAKE ONE TABLET BY MOUTH DAILY AT 5PM 90 tablet 1 08/15/2024 Active Start: 07-14-2016 End: 05-08-2024 take 1 tablet by mouth once daily atorvastatin (Lipitor) 10 MG tablet TAKE ONE TABLET BY MOUTH DAILY AT 5PM 90 tablet 1 12/21/2023 Active Comment on above: Take 10 mg by mouth. azithromycin 250 mg oral tablet (3 sources) Macrolide Antimicrobial Start: 025 End: 025 azithromycin (Zithromax) 250 MG tablet Take 2 tabs (500 mg) by mouth today, than 1 daily for 4 days. 6 tablet 08/21/2024 08/26/2024 Active Beclomethasone Diprop Inhaler (1 source) Corticosteroid Start: 017 Beclomethasone Diprop Inhaler (Qvar 80 Mcg Inhaler) 1 PUFF inhaler Active 2 PUFF IH TWICE A DAY July 13, 2016 11:00pm benzonatate 100 mg oral capsule (3 sources) Non-narcotic Antitussive Start: 023 End: 023 take 2 capsules by mouth three times daily as needed benzonatate (TESSALON PERLE) 100 mg capsule Indications: Bacterial sinusitis Take 2 capsules by mouth three times a day as needed for up to 10 days. 60 capsule 0 12/29/2022 01/08/2023 Active Start: 01-31-2019 End: 12-29-2022 take 1 capsule by mouth every eight hours as needed benzonatate (TESSALON PERLE) 100 mg capsule Take 1 capsule by mouth three times daily as needed. 30 capsule 0 01/31/2019 12/29/2022 Discontinued Comment on above: Take 2 capsules by m outh three times a day as needed for up to 10 days. Take 1 capsule by mo uth three times daily as needed. betamethasone 0.5 mg/ml / clotrimazole 10 mg/ml topical cream (20 sources) Azole Antifungal, Corticosteroid Start: 05-07-2023 End: 07-06-2023 clotrimazole-betamet hasone (Lotrisone) cream Apply topically 2 times daily. 45 g 1 05/07/2023 07/06/2023 Active Start: 04-22-2021 clotrimazole-b etamethasone (LOTRISONE) 1-0.05 % cream Apply topically 2 times daily to perirectal area prn 15 g 1 04/22/2021 Active Start: 11-09-2018 clotrimazole-b etamethasone (LOTRISONE) cream Apply topically 2 times daily to perirectal area prn 11/09/2018 Active Start: 07-13-2018 clotrimazole-b etamethasone (LOTRISONE) 1-0.05 % cream Apply topically 2 times daily. 1 Tube 1 07/13/2018 Active Comment on above: Apply topically 2 ti mes daily to perirectal area prn Calcium Carbonate / Vitamin D (19 sources) Calcium Carbonate-Vitamin D (CALCIUM-VITAMIN D PO) Take by mouth. Active cephalexin 500 mg oral capsule (7 sources) Cephalosporin Antibacterial Start: End: take 1 capsule by mouth three times daily cephALEXin (KEFLEX) 500 mg capsule Indications: Skin erythema Take 1 capsule by mouth three times a day for 7 days. 21 capsule 08/09/2024 08/16/2024 Active Start: 05-05-2024 End: 05-12-2024 Start: 02-22-2024 End: 02-23-2024 take 2 capsules by mouth three times daily cephalexin (Keflex) 500 MG capsule Take 2 capsules (1,000 mg) by mouth 3 times daily for 2 doses. 02/22/2024 02/23/2024 Active Start: 02-16-2024 End: 02-22-2024 take 1000 mg by mouth three times daily 1,000 mg, Oral, 3 times daily, First dose on Wed02/16/24 at 1430, For 21 doses, Suspected Indication (Select all that apply): Skin and Soft Tissue Infection CPAP Machine MISC (20 sources) Start: 01-18-2019 CPAP Machine M ISC by Does not apply route Use at prior settings 1 each 0 01/18/2019 Active CPAP Machine MIS C by Does not apply route nightly 0 Active dilTIAZem hydrochloride 60 mg oral tablet (20 sources) Calcium Channel Reina Start: 08-15-2024 End: 11-13-2024 take 1 tablet by mouth every eight hours dilTIAZem (Cardizem) 60 MG immediate release tablet Take 1 tablet (60 mg) by mouth every 8 hours for 270 doses. 270 tablet 1 08/15/2024 11/13/2024 Active Start: 06-05-2024 End: 07-17-2024 take 1 tablet by mouth every eight hours dilTIAZem (Cardizem) 60 MG immediate release tablet Take 1 tablet (60 mg) by mouth every 8 hours. 360 tablet 1 07/17/2024 Active Start: 10-27-2013 End: 10-28-2013 take 1 capsule by mouth once daily Diltiazem Hcl 360 MG Cap.Er.24h Discontinued 360 mg PO DAILY October 27, 2013 12:00am October 28, 2013 5:49pm docusate sodium 100 mg oral capsule (19 sources) Start: 06-03-2024 Docusate Sodium (DSS) 100 MG capsule 100 mg. 06/03/2024 Active ergocalciferol 66261 unt oral capsule (1 source) Provitamin D2 Compound Start: 05-25-2018 take 1 capsule by mouth every week ergocalciferol (ERGOCALCIFEROL) 96467 units capsule Take 1 capsule by mouth once a week 90 capsule 1 05/25/2018 Active ferrous sulfate 324 mg delayed release oral tablet (17 sources) Start: 06-23-2024 ferrous sulfate 324 (65 Fe) MG EC tablet One bid on empty stomach 30 min before meals or 2 hours after 180 tablet 1 08/15/2024 Active Start: 06-23-2024 ferrous sulfat e EC 324 mg (65 mg iron) TbEC One bid on empty stomach 30 min before meals or 2 hours after 06/23/2024 Active folic acid 1 mg oral tablet (20 sources) Start: 08-15-2024 End: 02-11-2025 take 1 tablet by mouth once daily folic acid (Folvite) 1 MG tablet Take 1 tablet (1 mg) by mouth daily. 90 tablet 1 08/15/2024 02/11/2025 Active Start: 05-04-2024 End: 08-04-2024 take 1 tablet by mouth once daily in the evening folic acid (Folvite) 1 MG tablet Take 1 tablet (1 mg) by mouth daily. 30 tablet 2 05/05/2024 5:22 PM EST 05/06/2024 08/04/2024 Active 60 actuat formoterol fumarate 0.005 mg/actuat / mometasone furoate 0.1 mg/actuat metered dose inhaler (16 sources) Corticosteroid, beta2-Adrenergic Agonist Start: 05-05-2024 End: 05-05-2025 Dulera 100-5 MCG/ACT inhaler Please see attached for detailed directions 06/20/2024 Active Start: 05-05-2024 End: 05-05-2025 furosemide 40 mg oral tablet (20 sources) Loop Diuretic Start: 05-08-2024 End: 05-09-2025 take 1 tablet by mouth once daily furosemide (Lasix) 40 MG tablet Take 1 tablet (40 mg) by mouth daily. 30 tablet 11 05/09/2024 06/19/2024 Discontinued (Dose adjustment) Start: 05-02-2024 Start: 04-23-2024 End: 04-27-2024 furosemide (Lasix) 40 MG tab let No Meds for 2 days then decrease to 1/2 tablet or 20 mg each day. 180 tablet 1 04/23/2024 04/27/2024 Discontinued Start: 02-23-2024 End: 02-22-2025 take 1 tablet by mouth once daily furosemide (Lasix) 80 MG tablet Take 1 tablet (80 mg) by mouth daily. 02/23/2024 04/03/2024 Discontinued Start: 02-22-2024 End: 02-22-2024 take 80 mg by mouth once daily 80 mg, Oral, Daily, Fir [facility] dose (after last modification) on Wed02/22/24 at 1145 Start: 11-09-2018 End: 04-23-2024 furosemide (Lasix) 40 MG tab let Decrease to one q am only 180 tablet 1 04/05/2024 04/23/2024 Discontinued (Dose adjustment) Start: 10-27-2013 End: 08-15-2025 take 1 tablet by mouth twice daily furosemide (Lasix) 40 MG tablet Take 1 tablet (40 mg) by mouth 2 times daily. 180 tablet 1 08/15/2024 08/15/2025 Active Comment on above: Take 40 mg by mouth. 12 hr guaiFENesin 1200 mg extended release oral tablet (8 sources) Start: 01-22-2022 take 1 tablet by mouth twice daily, then take 1 tablet by mouth every twelve hours Guaifenesin (Mucus Relief Er) 1,200 mg Tablet Extended Release 12hr Active 1200 mg PO TWICE A DAY January 22, 2022 1:00am Start: 01-31-2019 take 2 tablets by [facility] twice daily guaiFENesin (MUCINEX) 600 mg 12 hr tablet Take 2 tablets by mouth twice daily. 24 tablet 01/31/2019 Active Comment on above: Take 2 tablets by [facility] twice daily. ammonium lactate 120 mg/ml topical lotion (20 sources) Start: 03-03-2023 End: 03-02-2024 ammonium lactate (Lac-Hydrin) 12 % lotion Apply topically daily. 396 g 1 03/03/2023 03/02/2024 Active lisinopril 20 mg oral tablet (20 sources) Angiotensin Converting Enzyme Inhibitor Start: 04-03-2024 End: 04-03-2025 take 1 tablet by mouth once daily lisinopril 20 MG tablet Take 1 tablet (20 mg) by mouth daily. 90 tablet 1 08/14/2024 02/10/2025 Active Start: 02-23-2024 End: 02-22-2025 take 1 tablet by mouth once daily at lunch lisinopril 40 MG tablet Take 1 tablet (40 mg) by mouth Daily with lunch. Do not start before February 23, 2024. 02/23/2024 04/03/2024 Discontinued Start: 02-23-2024 End: 02-22-2024 take 40 mg by mouth once daily at lunch 40 mg, Oral, Daily With Lunch, First dose (after last modification) on Wed02/23/24 at 1200, Hold for BP Start: 02-23-2024 End: 02-22-2024 take 40 mg by mouth once daily at lunch 40 mg, Oral, Daily With Lunch, First dose (after last modification) on Wed02/23/24 at 1200, Hold for BP Start: 02-19-2024 End: 02-22-2024 20 mg, Oral, 2 times daily 8 &2, First dose (after last modification) on 02/19/24 at 0800 Start: 05-18-2023 End: 02-22-2024 take 20 mg by mouth once daily 20 mg, Oral, Daily, Fir st dose on Wed02/15/24 at 1030 Start: 12-11-2021 End: 03-25-2023 take 1 tablet by mouth once daily lisinopril 20 MG tablet TAKE ONE TABLET BY MOUTH DAILY AT 9AM 90 tablet 1 03/25/2023 Active Start: 10-12-2019 take 1 tablet by zully th once daily lisinopril (PRINIVIL;ZESTRIL) 10 MG tablet Take 1 tablet by mouth daily 90 tablet 3 10/12/2019 Active Start: 05-23-2019 take 1 tablet by zully th once daily lisinopril (PRINIVIL;ZESTRIL) 10 MG tablet Take 1 tablet by mouth daily 90 tablet 1 05/23/2019 Active Start: 11-09-2018 take 1 tablet by zully th once daily lisinopril (PRINIVIL;ZESTRIL) 10 MG tablet Take 1 tablet by mouth daily 90 tablet 1 11/09/2018 Active Start: 10-21-2018 take 1 tablet by zully once daily lisinopril (PRINIVIL;ZESTRIL) 10 MG tablet Take 1 tablet by mouth daily 90 tablet 0 10/21/2018 Active Start: 01-24-2016 take 2 tablets by mo pah once daily lisinopril (ZESTRIL, PRINIVIL) 10 mg tablet Take 20 mg by mouth once daily. 11/09/2018 Active Start: 01-24-2016 take 20 mg by mouth once daily Lisinopril Active 20 MG PO DAILY January 24, 2016 12:00am Start: 10-27-2013 End: 08-14-2024 take 1 tablet by mouth once daily lisinopril (PRINIVIL;ZESTRIL) 20 MG tablet Take 1 tablet by mouth daily 90 tablet 1 08/14/2021 Active Comment on above: Take 20 mg by mouth once daily. metoprolol tartrate 25 mg oral tablet (20 sources) beta-Adrenergic Reina Start: 06-05-2024 metoprolol tartrate (Lopressor) 25 MG tablet 3 tabs BID 540 tablet 1 08/15/2024 Active Start: 05-08-2024 End: 05-31-2024 take 1.5 tablets by mouth twice daily in the evening metoprolol tartrate (Lopressor) 50 MG tablet Take 1.5 tablets (75 mg) by mouth 2 times daily. 90 tablet 11 05/08/2024 5:13 PM EST 05/08/2024 05/31/2024 Discontinued (Reorder) Start: 05-01-2024 End: 05-31-2024 take 1 tablet by mouth twice daily metoprolol tartrate (Lopressor) 50 MG tablet Take 1 tablet (50 mg) by mouth 2 times daily. 180 tablet 05/01/2024 05/31/2024 Discontinued (Therapy completed) Start: 04-28-2024 End: 04-29-2024 Start: 02-21-2024 End: 02-22-2024 take 100 mg by mouth twice daily 100 mg, Oral, 2 times daily, First dose (after last modification) on 02/21/24 at 2100, Hold if HR Start: 02-18-2024 End: 02-21-2024 take 75 mg by mouth twice daily 75 mg, Oral, 2 times d aily, First dose (after last modification) on 02/19/24 at 2100, Hold if HR Start: 02-17-2024 End: 02-18-2024 take 50 mg by mouth twice daily 50 mg, Oral, 2 times d aily, First dose (after last modification) on Meghana 02/17/24 at 0900, Hold if HR Start: 02-15-2024 End: 02-17-2024 take 100 mg by mouth twice daily 100 mg, Oral, 2 times daily, First dose on 02/15/24 at 1030 Start: 12-09-2021 metoprolol tar trate (Lopressor) 100 MG tablet Start: 11-09-2018 End: 05-08-2024 metoprolol tartrate, short a cting, (LOPRESSOR) 100 mg tablet Take 200 mg by mouth two times a day. 11/09/2018 Active Start: 10-06-2018 take 2 tablets by mo uth twice daily metoprolol (LOPRESSOR) 100 MG tablet Take 2 tablets by mouth 2 times daily 360 tablet 3 10/06/2018 Active Start: 10-28-2013 End: 05-31-2025 take 2 tablets by mouth twice daily metoprolol tartrate (Lopressor) 50 MG tablet Indications: Permanent atrial fibrillation (HCC) Take 2 tablets (100 mg) by mouth 2 times daily. 05/31/2024 06/19/2024 Discontinued (Dose adjustment) Start: 10-28-2013 End: 01-24-2016 take 100 mg by mouth twice daily Metoprolol Tartrate Active 100 MG PO TWICE A DAY January 24, 2016 8:32pm Start: 10-27-2013 End: 10-28-2013 take 1 tablet by mouth twice daily Metoprolol Tartrate 50 MG tablet Discontinued 50 mg PO TWICE A DAY October 27, 2013 12:00am October 28, 2013 5:43pm Comment on above: Take 200 mg by mouth two times a day. miconazole nitrate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 episode, unspecified] Onset: 06-08-2017 Other aftercare (6 sources) 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; Translations: [residential (current) use of anticoagulants] Onset: 06-08-2017 Episodic Other aftercare (20 sources) Patient encounter status; Translations: [Other care home (current) drug therapy] Onset: 02-02-2023 02-02-2023 Episodic Other aftercare (1 source) Post-discharge follow-up; Translations: [Encounter for follow-up examination after completed treatment for conditions other than malignant neoplasm] 05-31-2024 Episodic Other aftercare (2 sources) Encounter for follow-up examination after completed treatment for conditions other than malignant neoplasm; Translations: [Encounter for follow-up examination after completed treatment for conditions other than malignant neoplasm] Onset: 05-31-2024 Episodic Other circulatory disease (2 sources) Hypotension, unspecified; Translations: [Hypotension, unspecified] Onset: 06-08-2017 Episodic Other endocrine disorders (2 sources) Mass of left adrenal gland; Translations: [Other specified disorders of adrenal gland] 02-11-2024 Chronic Other endocrine disorders (3 sources) Disorder of adrenal gland; Translations: [Disorder of adrenal gland, unspecified] 04-03-2024 Chronic Other endocrine disorders (2 sources) Disorder of adrenal gland, unspecified; Translations: [Disorder of adrenal gland, unspecified (HCC)] Onset: 04-03-2024 Chronic Other endocrine disorders (2 sources) Other specified disorders of adrenal gland; Translations: [Other specified disorders of adrenal gland (HCC)] Onset: 02-11-2024 Chronic Other eye disorders (2 sources) Lesion of eyelid; Translations: [Unspecified disorder of eyelid] 03-25-2023 Episodic Other fractures (2 sources) Compression fracture of lumbar spine; Translations: [Wedge compression fracture of unspecified lumbar vertebra, initial encounter for closed fracture] 04-28-2024 Episodic Other hematologic conditions (2 sources) Protein electrophoresis abnormal; Translations: [Abnormality of plasma protein, unspecified] 06-23-2024 Episodic Other hematologic conditions (2 sources) Abnormality of plasma protein, unspecified; Translations: [Abnormality of plasma protein, unspecified] Onset: 06-30-2024 Episodic Other infections; including parasitic (1 source) Personal history of other infectious and parasitic diseases; Translations: [History of COVID-19] 12-21-2023 Episodic Other inflammatory condition of skin (1 source) Erythema of skin; Translations: [Erythematous condition, unspecified] 08-09-2024 Episodic Other inflammatory condition of skin (1 source) Erythematous condition, unspecified; Translations: [Skin erythema] Onset: 08-09-2024 Episodic Other lower respiratory disease (1 source) H/O: pneumonia; Translations: [Personal history of pneumonia (recurrent)] 12-21-2023 Episodic Other non-traumatic joint disorders (2 sources) Pain in elbow; Translations: [Pain in right elbow] 08-09-2024 Episodic Other non-traumatic joint disorders (1 source) Pain in right elbow; Translations: [Right elbow pain] Onset: 08-09-2024 Episodic Other nutritional; endocrine; and metabolic disorders (20 sources) Morbid obesity; Translations: [Morbid (severe) obesity due to excess calories] Onset: 10-25-2018 10-25-2018 Chronic Other nutritional; endocrine; and metabolic disorders (4 sources) Body mass index 40+ - severely obese; Translations: [Morbid (severe) obesity due to excess calories] 01-18-2022 Chronic Other nutritional; endocrine; and metabolic disorders (19 sources) Obesity; Translations: [Obesity, unspecified] Onset: 10-25-2018 04-02-2024 Chronic Other nutritional; endocrine; and metabolic disorders (2 sources) Morbid (severe) obesity due to excess calories; Translations: [Morbid (severe) obesity due to excess calories (HCC)] Onset: 06-19-2024 Chronic Other upper respiratory disease (20 sources) Allergic rhinitis; Translations: [Allergic rhinitis, unspecified] Onset: 11-23-2014 11-23-2014 Chronic Other upper respiratory disease (4 sources) Acute bronchospasm; Translations: [Acute bronchospasm] 01-18-2022 Episodic Other upper respiratory disease (2 sources) Acute bronchospasm; Translations: [Acute bronchospasm] Episodic Other upper respiratory disease (1 source) Bleeding from nose; Translations: [Epistaxis] 12-21-2023 Episodic Other upper respiratory infections (1 source) Bacterial sinusitis; Translations: [Chronic sinusitis, unspecified] 12-29-2022 Chronic Other upper respiratory infections (4 sources) Acute maxillary sinusitis; Translations: [Acute maxillary sinusitis, unspecified] 05-26-2024 Episodic Pulmonary heart disease (20 sources) Pulmonary hypertension; Translations: [Pulmonary hypertension, unspecified] Onset: 11-23-2014 11-23-2014 Chronic Residual codes; unclassified (20 sources) Obstructive sleep apnea syndrome; Translations: [Obstructive sleep apnea (adult) (pediatric)] Onset: 11-23-2014 11-23-2014 Chronic Residual codes; unclassified (1 source) Past history of procedure; Translations: [Personal history of other specified conditions] Episodic Residual codes; unclassified (1 source) Pain; Translations: [Pain, unspecified] 02-04-2024 Episodic Superficial injury; contusion (4 sources) Contusion of unspecified front wall of thorax, initial encounter; Translations: [Contusion of right breast, initial encounter] Onset: 06-08-2017 Episodic Unclassified (4 sources) Obstructive sleep apnea (adult) (pediatric); Translations: [Obstructive sleep apnea (adult) (pediatric)] Onset: 06-08-2017 Chronic Unclassified (1 source) Patient encounter status; Translations: [Breast cancer screening] Unclassified (4 sources) Permanent atrial fibrillation; Translations: [Permanent atrial fibrillation] Onset: 12-01-2021 Unclassified (2 sources) Chronic atrial fibrillation, unspecified; Translations: [Chronic atrial fibrillation, unspecified] Onset: 11-07-2021 Unclassified (2 sources) Longstanding persistent atrial fibrillation; Translations: [Longstanding persistent atrial fibrillation (HCC)] Onset: 02-17-2024 Unclassified (1 source) Low back pain, unspecified; Translations: [Low back pain, unspecified] Onset: 02-11-2024 Unclassified (1 source) Personal history of COVID-19; Translations: [Personal history of COVID-19] Onset: 12-21-2023 Unclassified (2 sources) Blood in Urine-dizziness Onset: 12-13-2023 Viral infection (6 sources) Respiratory syncytial virus infection; Translations: [Other specified viral diseases] Episodic Past or Other Problems Problem Classification Problem Date Documented Date Episodic/Chronic Abdominal pain (20 sources) Abdominal pain; Translations: [Unspecified abdominal pain] Onset: 02-14-2024 Resolved: 04-03-2024 02-15-2024 Episodic Acute and unspecified renal failure (4 sources) Acute renal failure syndrome; Translations: [Acute kidney failure, unspecified] Onset: 04-27-2024 04-28-2024 Episodic Biliary tract disease (20 sources) Cholelithiasis without obstruction; Translations: [Calculus of gallbladder without cholecystitis without obstruction] Onset: 03-15-2017 02-11-2024 Episodic Cardiac dysrhythmias (7 sources) Tachycardia, unspecified; Translations: [Palpitations] Onset: 06-08-2017 08-11-2023 Episodic Chronic ulcer of skin (20 sources) Skin ulcer; Translations: [Venous stasis ulcer] Resolved: 12-05-2018 12-05-2018 Chronic Diabetes mellitus without complication (10 sources) Acute hyperglycemia; Translations: [Hyperglycemia, unspecified] Onset: 04-03-2024 Episodic Fluid and electrolyte disorders (4 sources) Dehydration; Translations: [Dehydration] Onset: 04-27-2024 04-28-2024 Episodic Hypertension with complications and secondary hypertension (20 sources) Hypertensive heart disease without congestive heart failure; Translations: [Hypertensive heart disease without heart failure] Onset: 04-26-2016 Resolved: 04-03-2024 02-17-2024 Chronic Malaise and fatigue (20 sources) Asthenia; Translations: [Weakness] Onset: 04-27-2024 Resolved: 06-19-2024 04-28-2024 Episodic Mycoses (4 sources) Tinea cruris; Translations: [Tinea cruris] Onset: 02-14-2024 02-14-2024 Episodic Nausea and vomiting (3 sources) Nausea; Translations: [Nausea] Onset: 04-03-2024 04-03-2024 Episodic Nonmalignant breast conditions (8 sources) Breast signs and symptoms; Translations: [Other signs and symptoms in breast] Onset: 07-02-2021 Episodic Nutritional deficiencies (20 sources) Nutritional marasmus; Translations: [Unspecified severe protein-calorie malnutrition] Onset: 05-04-2024 Resolved: 06-19-2024 05-04-2024 Chronic Other aftercare (20 sources) Long-term current use of anticoagulant; Translations: [residential (current) use of anticoagulants] Onset: 11-23-2014 11-23-2014 Episodic Other aftercare (20 sources) Long-term current use of drug therapy; Translations: [Other care home (current) drug therapy] Onset: 02-02-2023 Resolved: 06-19-2024 02-02-2023 Episodic Other aftercare (2 sources) Encounter for therapeutic drug level monitoring; Translations: [Encounter for therapeutic drug level monitoring] Onset: 04-03-2024 Episodic Other aftercare (2 sources) 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; Translations: [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] Onset: 02-02-2023 Episodic Other circulatory disease (20 sources) Vascular insufficiency; Translations: [Venous insufficiency (chronic) (peripheral)] Onset: 01-31-2016 01-31-2016 Episodic Other diseases of veins and lymphatics (2 sources) Disorder of vein; Translations: [Venous insufficiency] 01-31-2016 Episodic Other diseases of veins and lymphatics (2 sources) Venous insufficiency (chronic) (peripheral); Translations: [Venous insufficiency (chronic) (peripheral)] Onset: 12-26-2021 Episodic Other fractures (2 sources) Wedge compression fracture of unspecified lumbar vertebra, initial encounter for closed fracture; Translations: [Wedge compression fracture of unspecified lumbar vertebra, initial encounter for closed fracture (HCC)] Onset: 04-27-2024 Episodic Other lower respiratory disease (7 sources) Dyspnea; Translations: [Shortness of breath] Onset: 02-14-2024 02-14-2024 Episodic Other lower respiratory disease (2 sources) Shortness of breath; Translations: [Shortness of breath] Onset: 02-14-2024 Episodic Other lower respiratory disease (2 sources) Personal history of pneumonia (recurrent); Translations: [Personal history of pneumonia (recurrent)] Onset: 12-21-2023 Episodic Other non-traumatic joint disorders (1 source) Pain in left knee; Translations: [Pain in joint, lower leg] Episodic Other screening for suspected conditions (not mental disorders or infectious disease) (20 sources) Mammography abnormal; Translations: [Other abnormal and inconclusive findings on diagnostic imaging of breast] Onset: 11-13-2018 Resolved: 04-03-2024 11-30-2018 Episodic Other upper respiratory disease (2 sources) Epistaxis; Translations: [Epistaxis] Onset: 12-21-2023 Episodic Pathological fracture (3 sources) Pathological fracture of vertebra due to osteoporosis; Translations: [Other osteoporosis with current pathological fracture, vertebra(e), subsequent encounter for fracture with routine healing] Onset: 04-03-2024 04-03-2024 Episodic Pulmonary heart disease (20 sources) Personal history of pulmonary embolism; Translations: [H/O: pulmonary embolus] Onset: 03-15-2008 07-20-2016 Episodic Residual codes; unclassified (2 sources) Personal history of other specified conditions; Translations: [Personal history of other specified conditions] Onset: 07-02-2021 Episodic Respiratory failure; insufficiency; arrest (adult) (20 sources) Acute respiratory failure; Translations: [Acute respiratory failure with hypoxia] Onset: 12-06-2023 Resolved: 04-03-2024 Episodic Skin and subcutaneous tissue infections (20 sources) Pustule ; Translations: [Local infection of the skin and subcutaneous tissue, unspecified] Onset: 11-09-2018 Resolved: 04-03-2024 11-09-2018 Episodic Spondylosis; intervertebral disc disorders; other back problems (20 sources) Acute low back pain; Translations: [Acute right-sided low back pain without sciatica] Onset: 02-14-2024 Resolved: 04-03-2024 02-04-2024 Episodic Unclassified (1 source) Low back pain, unspecified; Translations: [Low back pain, unspecified] Onset: 02-11-2024 Unclassified (1 source) Personal history of COVID-19; Translations: [Personal history of COVID-19] Onset: 12-21-2023 Varicose veins of lower extremity (14 sources) Stasis ulcer; Translations: [Skin ulcer] Resolved: 12-05-2018 11-23-2014 Episodic Results Test Name Value Interpretation Reference Range Facility Progress Noteon 08-15-[address] [facility] 36on 08-14-[address] [facility] 36 Placed call to shari gonzalez. Unable to reach them by phone to discuss lab results. Left detailed message to return call to discuss results. Please release information to patient [facility] [address] [facility] CNOVon 08-09-2024 CNOV Office Visit (UCTR ) ----- ALTA BAKER ([id number]) 1950 F Date Time Provider Department 08/09/24 2:15 PM MIRANDA MARION [facility] During your visit today, we recorded the following information about you: Temperature Pulse Respiration Blood pressure 96.9 degrees 100/minute 20/minute 122/72 Weight 100.1 kg Miranda Marion APRN.DESKTOP ENGINEER 08/09/2024 3:16 PM Signed [facility] Subjective HPI HPI Alta iMrzaman is a 74 year old female who presents today for CC of right elbow pain, redness, swelling. This started 2 days ago. Has tried otc medication for relief. Symptoms are worsened by nothing. Risk factors rests elbow on counter often. Denies fever, joint pain. .Patient presents with: Pain (Elbow Pain): right redness and swelling x 2 days No past medical history on file. No past surgical history on file. ALLERGIES Oxycodone, Cbobuip-Pgr-Dnh Reductase Inhibitors, and Tetanus And Diphtheria Toxoids MEDICATIONS dilTIAZem (CARDIZEM) 60 mg tablet Take 60 mg by mouth q 8 HR. ferrous sulfate EC 324 mg (65 mg iron) TbEC One bid on empty stomach 30 min before meals or 2 hours after folic acid 1 mg tablet Take 1 mg by mouth once daily. apixaban (ELIQUIS) 5 mg tab(s) Take by mouth. albuterol (PROVENTIL) 2.5 mg /3 mL (0.083 %) nebulizer solution 2.5 mg every 6 hours as needed. albuterol HFA (PROVENTIL HFA, VENTOLIN HFA) 90 mcg/actuation inhaler INHALE TWO PUFFS BY MOUTH EVERY 4 HOURS NEEDED FOR WHEEZING OR FOR SHORTNESS OF BREATH (BULK) acetaminophen (TYLENOL) 325 mg tablet Take 650 mg by mouth. atorvastatin (LIPITOR) 10 mg tablet Take 10 mg by mouth. clotrimazole-betamethason e (LOTRISONE) cream Apply topically 2 times daily to perirectal area prn furosemide (LASIX) 40 mg tablet Take 40 mg by mouth. lisinopril (ZESTRIL, PRINIVIL) 10 mg tablet Take 20 mg by mouth once daily. metoprolol tartrate, short acting, (LOPRESSOR) 100 mg tablet Take 200 mg by mouth two times a day. nystatin (MYCOSTATIN) cream Apply topically 2 times daily to breast area nystatin (MYCOSTATIN) powder Indications: as directed under breasts Apply topically 4 times daily. potassium chloride ER (K-DUR, KLOR-CON) 20 mEq tablet Take 20 mEq by mouth. sertraline (ZOLOFT) 25 mg tablet Take 25 mg by mouth. cephALEXin (KEFLEX) 500 mg capsule Take 1 capsule by mouth three times a day for 7 days. predniSONE (DELTASONE) 20 mg tablet Take 2 tablets by mouth once daily for 5 days. Take daily with food. digoxin (LANOXIN) 125 mcg (0.125 mg) tablet Take 125 mcg by mouth. (Patient not taking: Reported on 08/09/2024) warfarin (COUMADIN) 3 mg tablet Take 3 mg by mouth. (Patient not taking: Reported on 12/29/2022) guaiFENesin (MUCINEX) 600 mg 12 hr tablet Take 2 tablets by mouth twice daily. (Patient not taking: Reported on 08/09/2024) No family history on file. Social History Tobacco Use Smoking status: Never Smokeless tobacco: Never Review of Systems Objective BP 122/72 Pulse 100 Temp 36.1 ?C (96.9 ?F) Resp 20 Wt 100.1 kg (220 lb 10.9 oz) SpO2 92% Physical Exam Constitutional: General: She is not in acute distress. Appearance: She is not toxic-appearing or diaphoretic. HENT: Head: Normocephalic and atraumatic. Pulmonary: Effort: Pulmonary effort is normal. No accessory muscle usage or respiratory distress. Musculoskeletal: Arms: Neurological: Mental Status: She is alert and oriented to person, place, and time. {ASSESSMENT/PLAN: 1. Skin erythema - ICD9: 695.9, ICD10: L53.9 (primary diagnosis) Unclear etiology, infected bursitis vs insect bite. -use medication as prescribed -follow up if symptoms persist, change - see pcp Worsening s/s go to ER - CEPHALEXIN 500 MG CAPSULE - PREDNISONE 20 MG TABLET 2. Right elbow pain - ICD9: 719.42, ICD10: M25.521 - XR ELBOW GENERAL 2V AP/LAT RIGHT IMPRESSION: Soft tissue swelling without radiographic evidence of acute osseous abnormality Dictated by : MD Miranda ARORA APRN.DESKTOP ENGINEER History and Record Review External record(s) reviewed: prior outpatient record and prior labs/imaging. Disposition The patient was discharged. Procedures Allergies As of Date: 08/09/2024 Noted Allergy Reaction OXYCODONE 07/27/2017 1 - Mental Status Change Comments: Did not like the feeling [id number] REDUCTASE INHIBIT*07/07/2016 17 - Myalgia TETANUS AND DIPHTHERIA TOXOIDS 01/31/2019 7 - Swelling Date Reviewed: 08/09/2024 Reviewed by: Ya Berry MA - Fully Assessed Reason for Visit: Pain (Elbow Pain) [1344] Cmt: right redness and swelling x 2 days Primary Visit Diagnosis:Skin erythema [L53.9] Other Visit Diagnosis:Right elbow pain [M25.521] Order(s):XR ELBOW GENERAL 2V AP/LAT RIGHT [[id number]] Order #: [id number]. #:[id number] cephALEXin (KEFLEX) 500 mg capsuleTake 1 capsule by mouth three times a day for 7 days.Disp: 21 caps (more content not included)... Normal [facility] XR ELBOW 2V AP/LAT RTon 07-14 XR ELBOW 2V AP/LAT RT * * *Final Report* * * DATE OF EXAM: Aug 09 2024 2:43PM WOX [id number] - XR ELBOW 2V AP/LAT RT / PROCEDURE REASON: Right elbow pain * * * * Physician Interpretation * * * * TITLE: XR ELBOW 2V AP/LAT RT CLINICAL INDICATION: Elbow pain TECHNIQUE: Frontal and lateral radiographs of the right elbow COMPARISON: None FINDINGS: No abnormal elevation of the anterior or posterior fat pad to suggest elbow joint effusion. No acute displaced fracture or dislocation identified. Soft tissue swelling. IMPRESSION: Soft tissue swelling without radiographic evidence of acute osseous abnormality Outsole Splicer: [facility] Transcribe Date/Time: Aug 09 2024 2:50P Dictated by : DEE DRISCOLL MD This examination was interpreted and the report reviewed and electronically signed by: DEE DRISCOLL MD on Aug 09 2024 2:51PM EST [id number] Normal [facility] XR Elbow - right AP and Late ralon 08-09-2024 IMPRESSION: Soft tissue swelling without radiographic evidence of acute osseous abnormality Outsole Splicer: [facility] Transcribe Date/Time: Aug 09 2024 2:50P Dictated by : DEE DRISCOLL MD This examination was interpreted and the report reviewed and electronically signed by: DEE DRISCOLL MD on Aug 09 2024 2:51PM EST DIVISION OF RADIOLOGY * * *Final Report* * * DATE OF EXAM: Aug 09 2024 2:43PM WOX [id number] - XR ELBOW 2V AP/LAT RT / PROCEDURE REASON: Right elbow pain * * * * Physician Interpretation * * * * TITLE: XR ELBOW 2V AP/LAT RT CLINICAL INDICATION: Elbow pain TECHNIQUE: Frontal and lateral radiographs of the right elbow COMPARISON: None FINDINGS: No abnormal elevation of the anterior or posterior fat pad to suggest elbow joint effusion. No acute displaced fracture or dislocation identified. Soft tissue swelling. DIVISION [facility] RADIOLOGY [facility] * * *Final Report* * * DATE OF EXAM: Aug 09 2024 2:43PM WOX [id number] - XR ELBOW 2V AP/LAT RT / PROCEDURE REASON: Right elbow pain * * * * Physician Interpretation * * * * TITLE: XR ELBOW 2V AP/LAT RT CLINICAL INDICATION: Elbow pain TECHNIQUE: Frontal and lateral radiographs of the right elbow COMPARISON: None FINDINGS: No abnormal elevation of the anterior or posterior fat pad to suggest elbow joint effusion. No acute displaced fracture or dislocation identified. Soft tissue swelling. IMPRESSION IMPRESSION: Soft tissue swelling without radiographic evidence of acute osseous abnormality Outsole Splicer: [facility] Transcribe Date/Time: Aug 09 2024 2:50P Dictated by : DEE DRISCOLL MD This examination was interpreted and the report reviewed and electronically signed by: DEE DRISCOLL MD on Aug 09 2024 2:51PM [facility] Radiology Study observation (narrative) [facility] XR Elbow - right AP and Late ralOrdered By: [facility] Provider on 08-09-2024 [facility] BASIC METABOLIC PANELon 07-14 Anion gap [Moles/Vol] 9 mmol/L Normal 3-13 [facility] Comment on above: Performed By: #### L AB15 ####Dispatcher Service Chief: VIVIAN PANTOJA ([id number])[facility] RUDDY RUEDA (SWRLAB)[address] [place] [address] Calcium [Mass/Vol] 9.7 mg/dL Normal 8.8-10.0 [facility] Comment on above: Performed By: #### L AB15 ####Dispatcher Service Chief: VIVIAN PANTOJA ([id number])[facility] RUDDY [employer], LLC[employer]UANITA (SWRLAB)[address] [place] [address] Chloride [Moles/Vol] 107 mmol/L Normal 98-107 [facility] Comment on above: Performed By: #### L AB15 ####Dispatcher Service Chief: VIVIAN [id number])[employer] (SWRLAB)[address] [place] [address] [place] CO2 [Moles/Vol] 26 mmol/L Normal 23-31 [facility] Comment on above: Performed By: #### L AB15 ####Dispatcher Service Chief: VIVIAN PANTOJA ([id number])[facility] [place] [facility] (SWRLAB)[address] [place] [address] [place] Creatinine [Mass/Vol] 0.92 mg/dL Normal 0.57-1.11 [facility] Comment on above: Performed By: #### L AB15 ####Dispatcher Service Chief: VIVIAN PANTOJA ([id number])[facility] [place] (SWRLAB)[address] [place] [address] [place] GLOMERULAR FILTRATION RATE ML/MIN/1.73 SQ M.PREDICTED 65.9 mL/min/1.73m*2 Normal >60.0 [facility] Comment on above: Result Comment: Calc ulation based on the Chronic Kidney Disease Epidemiology Collaboration (CKD-EPI) equation refit without adjustment for race Performed By: #### L AB15 ####Dispatcher Service Chief: VIVIAN PANTOJA ([id number])[facility] [place] (SWRLAB)[address] [place] [address] Glucose [Mass/Vol] 100 mg/dL Normal 82-115 [facility] Comment on above: Performed By: #### L AB15 ####Dispatcher Service Chief: VIVIAN PANTOJA ([id number])[facility] [place] (SWRLAB)[address] [place] [address] [place] Potassium [Moles/Vol] 4.6 mmol/L Normal 3.5-5.1 [facility] Comment on above: Result Comment: [facility] potassium values may be up to 0.5 mmol/L lower than serum values. Performed By: #### L AB15 ####Dispatcher Service Chief: VIVIAN PANTOJA ([id number])[facility] [place] (SWRLAB)[address] [place] [address] [place] Sodium [Moles/Vol] 142 mmol/L Normal 136-145 [facility] Comment on above: Performed By: #### L AB15 ####Dispatcher Service Chief: VIVIAN PANTOJA ([id number])[facility] [place] [facility] (SWRLAB)[address] [place] [address] Urea nitrogen [Mass/Vol] 24 mg/dL High - [facility] Comment on above: Performed By: #### L AB15 ####Dispatcher Service Chief: VIVIAN PANTOJA ([id number])[facility] [place] [facility] (SWRLAB)[address] [place] [address] CBC WITH AUTO DIFFERENTIALon 08-05-2024 Basophils (Bld) [#/Vol] 0.0 10*3/uL Normal 0.0-0.2 [facility] Comment on above: Performed By: #### L [id number] ####Dispatcher Service Chief: VIVIAN PANTOJA ([id number])[facility]ENTER[facility] (SWRLAB)[address] [place] [address] [place] Basophils/100 WBC (Bld) 0.2 % Normal 0.0-2.0 [facility] Comment on above: Performed By: #### L [id number] ####Dispatcher Service Chief: VIVIAN PANTOJA ([id number])[facility] (SWRLAB)[address] [place] [address] [place] Eosinophils (Bld) [#/Vol] 0.0 10*3/uL Normal 0.0-0.5 [facility] Comment on above: Performed By: #### L [id number] ####Dispatcher Service Chief: VIVIAN PANTOJA ([phone])[facility] (SWRLAB)[address] [place] [address] [place] Eosinophils/100 WBC (Bld) 0.2 % Normal 0.0-6.0 [facility] Comment on above: Performed By: #### L [id number] ####Dispatcher Service Chief: VIVIAN PANTOJA ([phone])[facility]ENTERBess[facility] (SWRLAB)[address] [place] [address] Erythrocyte distribution width (RBC) [Ratio] 15.6 % High 11.5-15.0 [facility] Comment on above: Performed By: #### L [id number] ####Dispatcher Service Chief: VIVIAN PANTOJA ([id number])[facility] (SWRLAB)[address] [place] [address] Hematocrit (Bld) [Volume fraction] 30.0 % Low 35.0-47.0 [facility] Comment on above: Performed By: #### L [id number] ####Dispatcher Service Chief: VIVIAN PANTOJA ([id number])[facility]ENTERB[facility] (SWRLAB)[address] [place] [address] Hemoglobin (Bld) [Mass/Vol] 9.2 g/dL Low 11.7-16.0 [facility] Comment on above: Performed By: #### L [id number] ####Dispatcher Service Chief: VIVIAN PANTOJA ([phone])[facility]ENTERB[facility] (SWRLAB)[address] [place] [address] IMMATURE GRANS % 0.5 % Normal 0.0-2.0 [facility] Comment on above: Performed By: #### L [id number] ####Dispatcher Service Chief: VIVIAN PANTOJA ([phone])[facility]ENTER[facility] (SWRLAB)[address] [place] [address] IMMATURE GRANS ABSOLUTE 0.1 10*3/uL High <0.1 [facility] Comment on above: Performed By: #### L [id number] ####Dispatcher Service Chief: VIVIAN PANTOJA ([id number])[facility]ENTERB[facility] (SWRLAB)[address] [place] [address] [place] Lymphocytes (Bld) [#/Vol] 1.3 10*3/uL Normal 1.0-4.3 [facility] Comment on above: Performed By: #### L [id number] ####Dispatcher Service Chief: VIVIAN PANTOJA ([phone])[facility]ENTERB[facility] (SWRLAB)[address] [place] [address] [place] Lymphocytes/100 WBC (Bld) 11.9 % Low 15.0-45.0 [facility] Comment on above: Performed By: #### L [id number] ####Dispatcher Service Chief: VIVIAN PANTOJA ([id number])[facility]ENTERB[facility] (SWRLAB)[address] [place] [address] MCH (RBC) [Entitic mass] 28.1 pg Normal 26.0-34.0 [facility] Comment on above: Performed By: #### L [id number] ####Dispatcher Service Chief: VIVIAN PANTOJA ([id number])[facility]ENTEReBssy [facility] (SWRLAB)[address] [place] [address] MCHC 30.7 % Normal 30.5-36.0 [facility] Comment on above: Performed By: #### L [id number] ####Dispatcher Service Chief: VIVIAN PANTOJA ([id number])[facility]ENTERB[facility] (SWRLAB)[address] [place] [address] [place] MCV (RBC) [Entitic vol] 91.7 fL Normal 77.0-99.0 [facility] Comment on above: Performed By: #### L [id number] ####Dispatcher Service Chief: VIVIAN PANTOJA ([phone])[facility]ENTERB[facility] (SWRLAB)[address] [place] [address] [place] Monocytes (Bld) [#/Vol] 2.7 10*3/uL High 0.0-0.9 [facility] Comment on above: Performed By: #### L [id number] ####Dispatcher Service Chief: VIVIAN PANTOJA ([phone])[facility]ENTERB[facility] (SWRLAB)[address] [place] [address] [place] Monocytes/100 WBC (Bld) 24.3 % High 5.0-13.0 [facility] Comment on above: Performed By: #### L [id number] ####Dispatcher Service Chief: VIVIAN PANTOJA ([id number])[facility] (SWRLAB)[address] [place] [address] NEUTROPHILS ABSOLUTE 6.9 10*3/uL Normal 1.8-7.5 [facility] Comment on above: Performed By: #### L [id number] ####Dispatcher Service Chief: VIVIAN PANTOJA ([id number])[facility] (SWRLAB)[address] [place] [address] Neutrophils/100 WBC (Bld) 62.9 % Normal 38.0-82.0 [facility] Comment on above: Performed By: #### L [id number] ####Dispatcher Service Chief: VIVIAN PANTOJA ([id number])[facility]ENTERB[facility]y [facility] (SWRLAB)[address] [place] [address] NRBC 0.0 /100 WBCs Normal 0.0-2.0 [facility] Comment on above: Performed By: #### L [id number] ####Dispatcher Service Chief: VIVIAN PANTOJA ([id number])[facility]ENTERB[facility] (SWRLAB)[address] [place] [address] Platelet mean volume (Bld) [Entitic vol] 12.6 fL Normal 9.0-12.7 [facility] Comment on above: Result Comment: MPV is a calculated measurement using platelet volume ratio Performed By: #### L [id number] ####Dispatcher Service Chief: VIVIAN PANTOJA ([id number])[facility]ENTERB[facility] (SWRLAB)[address] [place] [address] [place] Platelets (Bld) [#/Vol] 120 10*3/uL Low 140-440 [facility] Comment on above: Performed By: #### L [id number] ####Dispatcher Service Chief: VIVIAN PANTOJA ([id number])[facility]ENTERB[facility] (SWRLAB)[address] [place] [address] RBC (Bld) [#/Vol] 3.27 10*6/uL Low 3.80-5.20 [facility] Comment on above: Performed By: #### L [id number] ####Dispatcher Service Chief: VIVIAN PANTOJA ([phone])[facility]PITALRUDDY CHENT[facility] (SWRLAB)[address] [place] [address] WBC (Bld) [#/Vol] 11.0 10*3/uL High 3.6-10.7 [facility] Comment on above: Performed By: #### L [id number] ####Dispatcher Service Chief: VIVIAN PANTOJA ([id number])[facility] (SWRLAB)[address] [place] [address] IG CONCENTRATION, BLOOD (IMM UNOFIXATION ELECTROPHORESIS)on 08-05-2024 IGA, BLOOD 162 mg/dL Normal 85-600 [facility] Comment on above: Order Comment: THIS IS A CARVE-OUT TEST. SEND SPECIMEN TO [facility] FOR PROCESSING Performed By: #### L [id number] ####Dispatcher Service Chief: AMAN SANTOS ([id number])[facility] (SBHLAB)[address] IGG, BLOOD 531 mg/dL Low 540-1722 [facility] Comment on above: Order Comment: THIS IS A CARVE-OUT TEST. SEND SPECIMEN TO [facility] FOR PROCESSING Performed By: #### L [id number] ####Dispatcher Service Chief: AMAN SANTOS ([id number])[facility]IP[facility] (SBHLAB)[address] [place] [address] [place] IGM, BLOOD 81 mg/dL Normal 25-265 [facility] Comment on above: Order Comment: THIS IS A CARVE-OUT TEST. SEND SPECIMEN TO [facility] FOR PROCESSING Performed By: #### L [id number] ####Dispatcher Service Chief: AMAN SANTOS ([id number])[facility]IP[facility] (SBHLAB)[address] [place] [address] [place] IMMUNOFIXATION ELECTROPHORES Nick 08-05-2024 IMMUNOFIXATION ELECTROPHORESIS See Below Normal [facility] Comment on above: Order Comment: THIS IS A CARVE-OUT TEST. SEND SPECIMEN TO [facility] FOR PROCESSING Result Comment: A mo noclonal IgG kappa protein cannot be excluded. Low IgG level. Serum free light chain levels are recommended, if clinically indicated. Performed By: #### L [id number] ####Dispatcher Service Chief: VIVIAN PANTOJA ([phone])[facility] ([facility])[address] [place] [address] RELEASED BY Vivian Pantoja M.D. [facility] Comment on above: Order Comment: THIS IS A CARVE-OUT TEST. SEND SPECIMEN TO [facility] FOR PROCESSING Result Comment: This is an appended report. These results have been appended to a previously preliminary verified report. Performed By: #### L [id number] ####Dispatcher Service Chief: VIVIAN PANTOJA ([phone])[facility] ([facility])[address] [place] [address] REVIEWED BY Noe Oropeza, Ph.D. [facility] Comment on above: Order Comment: THIS IS A CARVE-OUT TEST. SEND SPECIMEN TO [facility] FOR PROCESSING Performed By: #### L [id number] ####Dispatcher Service Chief: VIVIAN PANTOJA ([phone])[address] 08-04-2024 36 Message released to patient as written. Patient's further questions if applicable: pt received results Were all questions from office addressed or relayed to the patient from encounter: Yes [facility] 36 Placed call to shari gonzalez. Unable to reach them by phone to discuss lab results. Left detailed message to return call to discuss results. Please release information to patient Pt also sent letter to return call to the office. [facility] 08-02-2024 36 Spoke with pt and sh gilbert says she is getting her blood work done tmrw and has an apt with you on the and will discuss everything with you then. [facility] [address] [facility] 3608-01-2024 36 There are no Gast[facility] at [facility]. Do you have someone else? [facility] [address] [facility] ECG 12 lead - CLINIC PERFORM EDon 07-31-2024 [facility] Progress Noteon 07-31-2024 Progress Note Normal [facility] 36on 07-28-2024 36 Noted; thank you. Normal [facility] 36 Received via fax fro [facility] 06/02/24 EKG and 06/03/24 Echocardiogram. Report is scanned to Media. Normal [facility] 36 Noted; thank you. Normal [facility] 36 Faxed request to [facility] Records for report of 06/02/24 Echocardiogram. Your fax has been successfully sent to [facility] Records at [phone]. Normal [facility] 36on 07-17-2024 36 Normal [facility] 36on 07-03-2024 36 Normal [facility] 36 . Normal [facility] IG CONCENTRATION BLOODon IGA, BLOOD 163 mg/dL Normal 85-600 [facility] Comment on above: Performed By: #### L [id number] ####Dispatcher Service Chief: AMAN SANTOS ([id number])[facility] (SBHLAB)[address] [place] [address] IGG, BLOOD 505 mg/dL Low 540-1722 [facility] Comment on above: Performed By: #### L [id number] ####Dispatcher Service Chief: AMAN SANTOS ([id number])[facility] (SBHLAB)[address] [place] [address] IGM, BLOOD 77 mg/dL Normal 25-265 [facility] Comment on above: Performed By: #### L [id number] ####Dispatcher Service Chief: AMAN SANTOS ([phone])[facility] (SBHLAB)[address] [place] [address] 36on 06-26-2024 36 Normal [facility] 29on 06-23-2024 29 Addended by: DAVIS KERN on: 06/30/2024 04:36 PM Modules accepted: Orders Normal [facility] 29 Addended by: MIGUEL AMEZCUA on: 08/05/2024 10:50 AM Modules accepted: Orders Normal [facility] 36on 06-23-2024 36 Provider has not rev iewed the results. Once reviewed by the provider the office will reach out to patient. Normal [facility] 36 Normal [facility] CBC W Auto Differential pane l (Bld)Ordered By: Gely Bennett on 06-21-2024 Basophils (Bld) [#/Vol] 0 10*3/uL 0.0 - 0.2 10*3/uL [facility] Basophils/100 WBC (Bld) 0 % 0.0 - 2.0 % [facility] Eosinophils (Bld) [#/Vol] 0 10*3/uL 0.0 - 0.5 10*3/uL [facility] Eosinophils/100 WBC (Bld) 0.1 % 0.0 - 6.0 % [facility] Erythrocyte distribution width (RBC) [Ratio] 16.4 % High 11.5 - 15.0 % [facility] Hematocrit (Bld) [Volume fraction] 28.4 % Low 35.0 - 47.0 % [facility] Hemoglobin (Bld) [Mass/Vol] 8.6 g/dL Low 11.7 - 16.0 g/dL [facility] Immature granulocytes (Bld) [#/Vol] 0 10*3/uL NINF - 0.1 10*3/uL [facility] Immature granulocytes/100 WBC (Bld) 0.4 % 0.0 - 2.0 % [facility] Interpretation and review of laboratory results Abnormal [facility] IPF 12 [facility] Lymphocytes (Bld) [#/Vol] 1.1 10*3/uL 1.0 - 4.3 10*3/uL [facility] Lymphocytes/100 WBC (Bld) 14.7 % Low 15.0 - 45.0 % [facility] MCH (RBC) [Entitic mass] 29 pg 26.0 - 34.0 pg [facility] MCHC (RBC) [Mass/Vol] 30.3 % Low 30.5 - 36.0 % [facility] MCV (RBC) [Entitic vol] 95.6 fL 77.0 - 99.0 fL [facility] Monocytes (Bld) [#/Vol] 1.7 10*3/uL High 0.0 - 0.9 10*3/uL [facility] Monocytes/100 WBC (Bld) 22.4 % High 5.0 - 13.0 % [facility] Neutrophils (Bld) [#/Vol] 4.6 10*3/uL 1.8 - 7.5 10*3/uL [facility] Neutrophils/100 WBC (Bld) 62.4 % 38.0 - 82.0 % [facility] Nucleated RBC/100 WBC (Bld) [Ratio] 0 % [facility] Platelet mean volume (Bld) [Entitic vol] 13.3 fL High 9.0 - 12.7 fL [facility] Platelets (Bld) [#/Vol] 80 10*3/uL Low 140 - 440 10*3/uL [facility] RBC (Bld) [#/Vol] 2.97 10*6/uL Low 3.80 - 5.2 0 10*6/uL [facility] WBC (Bld) [#/Vol] 7.4 10*3/uL 3.6 - 10.7 10*3/uL [facility] CBC WITH AUTO DIFFERENTIALon 06-21-2024 Basophils (Bld) [#/Vol] 0.0 10*3/uL Normal 0.0-0.2 [facility] Comment on above: Performed By: #### L [id number] ####Dispatcher Service Chief: VIVIAN PANTOJA ([id number])[facility]ITAL[facility] (RLAB)[address] [place] [address] Basophils/100 WBC (Bld) 0.0 % Normal 0.0-2.0 [facility] Comment on above: Performed By: #### L [id number] ####Dispatcher Service Chief: VIVIAN PANTOJA ([id number])[facility] (SWRLAB)[address] [place] [address] [place] Eosinophils (Bld) [#/Vol] 0.0 10*3/uL Normal 0.0-0.5 [facility] Comment on above: Performed By: #### L [id number] ####Dispatcher Service Chief: VIVIAN PANTOJA ([id number])[facility] (SWRLAB)[address] [place] [address] [place] Eosinophils/100 WBC (Bld) 0.1 % Normal 0.0-6.0 [facility] Comment on above: Performed By: #### L [id number] ####Dispatcher Service Chief: VIVIAN PANTOJA ([id number])[facility] (SWRLAB)[address] [place] [address] Erythrocyte distribution width (RBC) [Ratio] 16.4 % High 11.5-15.0 [facility] Comment on above: Performed By: #### L [id number] ####Dispatcher Service Chief: VIVIAN PANTOJA ([id number])[facility]ENTERBessy [facility] (SWRLAB)[address] [place] [address] Hematocrit (Bld) [Volume fraction] 28.4 % Low 35.0-47.0 [facility] Comment on above: Performed By: #### L [id number] ####Dispatcher Service Chief: VIVIAN PANTOJA ([id number])[facility]ENTERBess[facility] (SWRLAB)[address] [place] [address] Hemoglobin (Bld) [Mass/Vol] 8.6 g/dL Low 11.7-16.0 [facility] Comment on above: Performed By: #### L [id number] ####Dispatcher Service Chief: VIVIAN PANTOJA ([id number])[facility] (SWRLAB)[address] [place] [address] IMMATURE GRANS % 0.4 % Normal 0.0-2.0 [facility] Comment on above: Performed By: #### L [id number] ####Dispatcher Service Chief: VIVIAN PANTOJA ([id number])[facility]ENTERBess[facility] (SWRLAB)[address] [place] [address] IMMATURE GRANS ABSOLUTE 0.0 10*3/uL Normal <0.1 [facility] Comment on above: Performed By: #### L [id number] ####Dispatcher Service Chief: VIVIAN PANTOJA ([id number])[facility]ENTERB[facility] (SWRLAB)[address] [place] [address] [place] IPF 12 Normal [facility] Comment on above: Performed By: #### L [id number] ####Dispatcher Service Chief: VIVIAN PANTOJA ([id number])[facility]ENTERB[facility] (SWRLAB)[address] [place] [address] Lymphocytes (Bld) [#/Vol] 1.1 10*3/uL Normal 1.0-4.3 [facility] Comment on above: Performed By: #### L [id number] ####Dispatcher Service Chief: VIVIAN PANTOJA ([id number])[facility]ENTER[facility] (SWRLAB)[address] [place] [address] Lymphocytes/100 WBC (Bld) 14.7 % Low 15.0-45.0 [facility] Comment on above: Performed By: #### L [id number] ####Dispatcher Service Chief: VIVIAN PANTOJA ([id number])[facility]ENTERB[facility] (SWRLAB)[address] [place] [address] MCH (RBC) [Entitic mass] 29.0 pg Normal 26.0-34.0 [facility] Comment on above: Performed By: #### L [id number] ####Dispatcher Service Chief: VIVIAN PANTOJA ([id number])[facility]ENTERB[facility] (SWRLAB)[address] [place] [address] MCHC 30.3 % Low 30.5-36.0 [facility] Comment on above: Performed By: #### L [id number] ####Dispatcher Service Chief: VIVIAN PANTOJA ([id number])[facility]ENTERB[facility] (SWRLAB)[address] [place] [address] MCV (RBC) [Entitic vol] 95.6 fL Normal 77.0-99.0 [facility] Comment on above: Performed By: #### L [id number] ####Dispatcher Service Chief: VIVIAN PANTOJA ([id number])[facility]ENTERB[facility] (SWRLAB)[address] [place], [place] [address] [place] Monocytes (Bld) [#/Vol] 1.7 10*3/uL High 0.0-0.9 [facility] Comment on above: Performed By: #### L [id number] ####Dispatcher Service Chief: VIVIAN PANTOJA ([id number])[facility] CENTERA RUDDY RITTMAN (SWRLAB)[address] [place] [address] [place] Monocytes/100 WBC (Bld) 22.4 % High 5.0-13.0 [facility] Comment on above: Performed By: #### L [id number] ####Dispatcher Service Chief: VIVIAN PANTOJA ([id number])[facility]ENTERB[facility] (SWRLAB)[address] [place] [address] NEUTROPHILS ABSOLUTE 4.6 10*3/uL Normal 1.8-7.5 [facility] Comment on above: Performed By: #### L [id number] ####Dispatcher Service Chief: VIVIAN PANTOJA ([id number])[facility]ENTERB[facility] (SWRLAB)[address] [place] [address] [place] Neutrophils/100 WBC (Bld) 62.4 % Normal 38.0-82.0 [facility] Comment on above: Performed By: #### L [id number] ####Dispatcher Service Chief: VIVIAN PANTOJA ([id number])[facility]ENTERB[facility] (SWRLAB)[address] [place] [address] [place] NRBC 0.0 /100 WBCs Normal 0.0-2.0 [facility] Comment on above: Performed By: #### L [id number] ####Dispatcher Service Chief: VIVIAN PANTOJA ([id number])[facility]ENTERB[facility] (SWRLAB)[address] [place] [address] [place] Platelet mean volume (Bld) [Entitic vol] 13.3 fL High 9.0-12.7 [facility] Comment on above: Performed By: #### L [id number] ####Dispatcher Service Chief: VIVIAN PANTOJA ([phone])[facility] (SWRLAB)[address] Platelets (Bld) [#/Vol] 80 10*3/uL Low 140-440 [facility] Comment on above: Performed By: #### L [id number] ####Dispatcher Service Chief: VIVIAN PANTOJA ([id number])[facility]ENTERB[facility] (SWRLAB)[address] RBC (Bld) [#/Vol] 2.97 10*6/uL Low 3.80-5.20 [facility] Comment on above: Performed By: #### L [id number] ####Dispatcher Service Chief: VIVIAN PANTOJA ([id number])[facility]ENTERB[facility] (SWRLAB)[address] WBC (Bld) [#/Vol] 7.4 10*3/uL Normal 3.6-10.7 [facility] Comment on above: Performed By: #### L [id number] ####Dispatcher Service Chief: VIVIAN PANTOJA ([id number])[facility]ENTERB[facility] (SWRLAB)[address] [place] [address] COMPREHENSIVE METABOLIC PANE Amaury 06-21-2024 Albumin [Mass/Vol] 3.8 g/dL Normal 3.4-4.8 [facility] Comment on above: Performed By: #### L ABAntoni, LAB67, LAB17 ####Dispatcher Service Chief: VIVIAN PANTOJA ([id number])[facility]ENTERB[facility] (SWRLAB)[address] ALP [Catalytic activity/Vol] 76 U/L Normal 40-150 [facility] Comment on above: Performed By: #### L AB68, LAB67, LAB17 ####Dispatcher Service Chief: VIVIAN PANTOJA ([id number])[facility]ENTERB[facility] (SWRLAB)[address] ALT [Catalytic activity/Vol] 19 U/L Normal <30 [facility] Comment on above: Performed By: #### Manpreet SMITH, LAB67, LAB17 ####Dispatcher Service Chief: VIVIAN PANTOJA ([id number])[facility]ENTERB[facility] (SWRLAB)[address] Anion gap [Moles/Vol] 8 mmol/L Normal 3-13 [facility] Comment on above: Performed By: #### Manpreet SMITH, LAB67, LAB17 ####Dispatcher Service Chief: VIVIAN PANTOJA ([id number])[facility]ENTERB[facility] (SWRLAB)[address] AST [Catalytic activity/Vol] 15 U/L Normal <34 [facility] Comment on above: Performed By: #### Manpreet SMITH, LAB67, LAB17 ####Dispatcher Service Chief: VIVIAN PANTOJA ([id number])[facility] CENTERBessy MARTINEZRUDDY RITTMAN (SWRLAB)[address] [place] [address] [place] Bilirubin [Mass/Vol] 0.9 mg/dL Normal <1.2 [facility] Comment on above: Performed By: #### Manpreet SMITH, LAB67, LAB17 ####Dispatcher Service Chief: VIVIAN PANTOJA ([id number])[facility]ENTERB[facility] (SWRLAB)[address] Calcium [Mass/Vol] 9.4 mg/dL Normal 8.8-10.0 [facility] Comment on above: Performed By: #### Manpreet SMITH, LAB67, LAB17 ####Dispatcher Service Chief: VIVIAN PANTOJA ([id number])[facility]ENTERBessy MARTINEZRUDDY RITTMAN (SWRLAB)[address] [place] [address] [place] Chloride [Moles/Vol] 108 mmol/L High 98-107 [facility] Comment on above: Performed By: #### Manpreet SMITH, LAB67, LAB17 ####Dispatcher Service Chief: VIVIAN PANTOJA ([id number])[facility]ENTERA RUDDY [facility] (SWRLAB)[address] [place] [address] [place] CO2 [Moles/Vol] 29 mmol/L Normal 23-31 [facility] Comment on above: Performed By: #### L AB68, LAB67, LAB17 ####Dispatcher Service Chief: VIVIAN PANTOJA ([id number])[facility]ENTERB[facility] (SWRLAB)[address] [place] [address] Creatinine [Mass/Vol] 0.71 mg/dL Normal 0.57-1.11 [facility] Comment on above: Performed By: #### L AB68, LAB67, LAB17 ####Dispatcher Service Chief: VIVIAN PANTOJA ([id number])[facility]ENTERB[facility] (SWRLAB)[address] [place] [address] [place] GLOMERULAR FILTRATION RATE ML/MIN/1.73 SQ M.PREDICTED 89.9 mL/min/1.73m*2 Normal >60.0 [facility] Comment on above: Result Comment: Calc ulation based on the Chronic Kidney Disease Epidemiology Collaboration (CKD-EPI) equation refit without adjustment for race Performed By: #### L AB68, LAB67, LAB17 ####Dispatcher Service Chief: VIVIAN PANTOJA ([id number])[facility] (SWRLAB)[address] [place] [address] Glucose [Mass/Vol] 103 mg/dL Normal 82-115 [facility] Comment on above: Performed By: #### L AB68, LAB67, LAB17 ####Dispatcher Service Chief: VIVIAN PANTOJA ([phone])[facility]ENTER[facility]ess[facility] [place] [facility] (SWRLAB)[address] [place] [address] Potassium [Moles/Vol] 3.4 mmol/L Low 3.5-5.1 [facility] Comment on above: Result Comment: [facility] potassium values may be up to 0.5 mmol/L lower than serum values. Performed By: #### L AB68, LAB67, LAB17 ####Dispatcher Service Chief: VIVIAN PANTOJA ([id number])[facility]ENTERBess[facility] [place] [facility] (SWRLAB)[address] [place] [address] Protein [Mass/Vol] 6.3 g/dL Low 6.4-8.3 [facility] Comment on above: Performed By: #### L AB68, LAB67, LAB17 ####Dispatcher Service Chief: VIVIAN PANTOJA ([phone])[facility] CENTERBessy CRUZTMAN (SWRLAB)[address] [place] [address] Sodium [Moles/Vol] 145 mmol/L Normal 136-145 [facility] Comment on above: Performed By: #### L AB68, LAB67, LAB17 ####Dispatcher Service Chief: VIVIAN PANTOJA ([phone])[facility] RITTMAN (SWRLAB)[address] [place] [address] Urea nitrogen [Mass/Vol] 17 mg/dL Normal 9-23 [facility] Comment on above: Performed By: #### L AB68, LAB67, LAB17 ####Dispatcher Service Chief: VIVIAN PANTOJA ([phone])[facility]ITAL[facility] CHENTMAN (SWRLAB)[address] [place] [address] Cobalamin (Vitamin B12) [Mas s/Vol]on 06-21-2024 Interpretation and review of laboratory results Abnormal [facility] Comprehensive metabolic 1998 panelon 06-21-2024 Albumin [Mass/Vol] 3.8 g/dL 3.4 - 4.8 g/dL [facility] ALP [Catalytic activity/Vol] 76 U/L 40 - 150 U/L [facility] ALT [Catalytic activity/Vol] 19 U/L NINF - 30 U/L [facility] Anion gap [Moles/Vol] 8 mmol/L 3 - 13 mmol/L [facility] AST [Catalytic activity/Vol] 15 U/L NINF - 34 U/L [facility] Bilirubin [Mass/Vol] 0.9 mg/dL NINF - 1.2 mg/dL [facility] Calcium [Mass/Vol] 9.4 mg/dL 8.8 - 10. 0 mg/dL [facility] Chloride [Moles/Vol] 108 mmol/L High 98 - 10 7 mmol/L [facility] CO2 [Moles/Vol] 29 mmol/L 23 - 31 mmol/L [facility] Creatinine [Mass/Vol] 0.71 mg/dL 0.57 - 1.11 mg/dL [facility] GFR/1.73 sq M.predicted (S/P/Bld) [Vol rate/Area] 89.9 mL/min - PINF [facility] Comment on above: Calculation based on the Chronic Kidney Disease Epidemiology Collaboration (CKD-EPI) equation refit without adjustment for race Glucose [Mass/Vol] 103 mg/dL 82 - 115 mg/dL [facility] Interpretation and review of laboratory results Abnormal [facility] Potassium [Moles/Vol] 3.4 mmol/L Low 3.5 - 5.1 mmol/L [facility] Comment on above: Plasma potassium imer ues may be up to 0.5 mmol/L lower than serum values. Protein [Mass/Vol] 6.3 g/dL Low 6.4 - 8.3 g/dL [facility] Sodium [Moles/Vol] 145 mmol/L 136 - 145 mmol/L [facility] Urea nitrogen [Mass/Vol] 17 mg/dL 9 - 23 mg/dL [facility] FERRITINon 06-21-2024 Ferritin [Mass/Vol] 127 ng/mL Normal 5-204 [facility] Comment on above: Result Comment: LEOBARDO Gill COMMENTS:Ferritin levels below 10 ng/mL have been reported as indicative of iron deficiency anemia. Performed By: #### L AB68, LAB67, LAB17 ####Dispatcher Service Chief: VIVIAN PANTOJA ([phone])[facility] KumbuyaTMAN (SWRLAB)[address] [place] [address] Ferritinon 06-21-2024 Ferritin [Mass/Vol] 127 ng/mL 5 - 204 ng/mL [facility] Ferritin [Mass/Vol]on 2024 Interpretation and review of laboratory results Normal [facility] Ferritin levels belo w 10 ng/mL have been reported as indicative of iron deficiency anemia. [facility] IRON AND TIBCon 06-21-2024 IRON BINDING CAPACITY 289 ug/dL Normal 250-450 [facility] Comment on above: Performed By: #### L [id number] ####Dispatcher Service Chief: VIVIAN PANTOJA ([phone])[facility] RUDDY [employer] LLCTMAN (SWRLAB)[address] [place] [address] IRON SATURATION 15.6 % Low 20.0-50.0 [facility] Comment on above: Performed By: #### L [id number] ####Dispatcher Service Chief: VIVIAN PANTOJA ([phone])[facility] (SWRLAB)[address] [place] [address] [place] IRON, TOTAL 45 ug/dL Low 50-170 [facility] Comment on above: Performed By: #### L [id number] ####Dispatcher Service Chief: VIVIAN PANTOJA ([phone])[facility] (SWRLAB)[address] [place] [address] Iron and Iron binding capaci ty panelon 06-21-2024 Interpretation and review of laboratory results Abnormal [facility] Iron [Mass/Vol] 45 ug/dL Low 50 - 170 ug/dL [facility] Iron binding capacity [Mass/Vol] 289 ug/dL 250 - 450 ug/dL [facility] Iron saturation [Mass fraction] 15.6 % Low 20.0 - 50.0 % [facility] No Panel Informationon 06-21 [facility] SERUM ELECTROPHORESISon Albumin [Mass/Vol] 4.1 g/dL Normal 3.1-4.8 [facility] Comment on above: Order Comment: THIS IS A CARVE-OUT LAB: SPECIMEN MUST BE SENT TO [facility] FOR PROCESSING Performed By: #### L [id number] ####Dispatcher Service Chief: VIVIAN PANTOJA ([phone])[facility] ([facility])[address] [place] [address] [place] ALPHA 1 0.5 g/dL High 0.2-0.4 [facility] Comment on above: Order Comment: THIS IS A CARVE-OUT LAB: SPECIMEN MUST BE SENT TO [facility] FOR PROCESSING Performed By: #### L [id number] ####Dispatcher Service Chief: VIVIAN PANTOJA ([phone])[facility] ([facility])[address] [place] [address] [place] ALPHA 2 0.6 g/dL Normal 0.6-1.0 [facility] Comment on above: Order Comment: THIS IS A CARVE-OUT LAB: SPECIMEN MUST BE SENT TO [facility] FOR PROCESSING Performed By: #### L [id number] ####Dispatcher Service Chief: VIVIAN PANTOJA ([phone])[address] BETA 1 0.4 g/dl Normal 0.3-0.6 [facility] Comment on above: Order Comment: THIS IS A CARVE-OUT LAB: SPECIMEN MUST BE SENT TO [facility] FOR PROCESSING Performed By: #### L [id number] ####Dispatcher Service Chief: VIVIAN PANTOJA ([phone])[facility])[address] [place] [address] BETA 2 0.3 g/dl Normal 0.3-0.5 [facility] Comment on above: Order Comment: THIS IS A CARVE-OUT LAB: SPECIMEN MUST BE SENT TO [facility] FOR PROCESSING Performed By: #### L [id number] ####Dispatcher Service Chief: VIVIAN PANTOJA ([phone])[address] GAMMA GLOBULIN 0.5 g/dL Normal 0.4-1.4 [facility] Comment on above: Order Comment: THIS IS A CARVE-OUT LAB: SPECIMEN MUST BE SENT TO [facility] FOR PROCESSING Performed By: #### L [id number] ####Dispatcher Service Chief: VIVIAN PANTOJA ([phone])[address] PROTEIN FRACTION (INTERPRETATION) IN SER/PLAS BY ELECTROPHORESIS See Below Normal [facility] Comment on above: Order Comment: THIS IS A CARVE-OUT LAB: SPECIMEN MUST BE SENT TO [facility] FOR PROCESSING Result Comment: Neil t band present in the gamma region.The band has a concentration of 0.16 g/dL. An Immunofixation is recommended. Performed By: #### L [id number] ####Dispatcher Service Chief: VIVIAN PANTOJA ([phone])[facility])[address] [place] [address] RELEASED BY Vivian Pantoja M.D. Normal [facility] Comment on above: Order Comment: THIS IS A CARVE-OUT LAB: SPECIMEN MUST BE SENT TO [facility] FOR PROCESSING Result Comment: This is an appended report. These results have been appended to a previously preliminary verified report. Performed By: #### L [id number] ####Dispatcher Service Chief: VIVIAN PANTOJA ([phone])[facility] ([facility])[address] [place] [address] REVIEWED BY Noe Oropeza, Ph.D. Normal [facility] Comment on above: Order Comment: THIS IS A CARVE-OUT LAB: SPECIMEN MUST BE SENT TO [facility] FOR PROCESSING Performed By: #### L [id number] ####Dispatcher Service Chief: VIVIAN PANTOJA ([phone])[facility] ([facility])[address] [place] [address] VITAMIN B12on 06-21-2024 Cobalamin (Vitamin B12) [Mass/Vol] 1023 pg/mL High 213-816 [facility] Comment on above: Performed By: #### L AB68, LAB67, LAB17 ####Dispatcher Service Chief: VIVIAN PANTOJA ([phone])[facility] (SWRLAB)[address] [place] [address] Vitamin B12on 06-21-2024 Cobalamin (Vitamin B12) [Mass/Vol] 1023 pg/mL High 213 - 816 pg/mL [facility] 29on 06-19-2024 29 Addended by: NESTOR MENDOZA on: 06/21/2024 11:16 AM Modules accepted: Orders Normal [facility] Progress Noteon 06-19-2024 Progress Note Normal [facility] 36on 06-12-2024 36 Noted Normal [facility] 36on 06-09-2024 36 Normal [facility] Culture, Blood (WB)on 2024 CUB Blood cultures x2, f rom two different sites No growth in 5 days. Normal [facility] Comment on above: Performed By: #### L 500.2500, L100.0100 #### [facility] [address] [place], [place] [address], [address] Absolute neutrophil countOrd ered By: Raul Helton on 06-05-2024 Neutrophils (Bld) [#/Vol] 10.7 10*3/uL High 2.0-7.[address] [facility] Anion gap in Serum or Plasma Ordered By: Raul Helton on 06-05-2024 Anion gap [Moles/Vol] 11 mmol/L 5-15 [facility] BUN/creatinine ratioOrdered By: Raul Helton on 06-05-2024 Urea nitrogen/Creatinine [Mass ratio] 43.8 mg/mg High 10-[address] [facility] Basic Metabolic Profile (BMP )on 06-05-2024 BUN/CRE 43.8 RATIO High 01-[address] [facility] Comment on above: Performed By: #### L 500.2500, L100.0100 #### [facility] [address] [place], [address] Calcium [Mass/Vol] 9.7 mg/dL Normal 7.6-11.0 [facility] Comment on above: Performed By: #### L 500.2500, L100.0100 #### [facility] [address] [place], [address] Chloride [Moles/Vol] 101 mmol/L Normal 98-108 [facility] Comment on above: Performed By: #### L 500.2500, L100.0100 #### [facility] [address] [place], [address] CO2 [Moles/Vol] 29.0 mmol/L Normal 21.0-32.[address] [facility] Comment on above: Performed By: #### L 500.2500, L100.0100 #### [facility] [address] [place], [address] Creatinine [Mass/Vol] 0.84 mg/dL Normal 0.70-1.20 [facility] Comment on above: Performed By: #### L 500.2500, L100.0100 #### [facility] [address] [place], [address] ECRCL 62.66 ml/min Normal 50-[address] [facility] Comment on above: Performed By: #### L 500.2500, L100.0100 #### [facility] [address] [place], [address] GAP 11 Normal 5-[address] [facility] Comment on above: Performed By: #### L 500.2500, L100.0100 #### [facility] [address] [place], [address] GFR/1.73 sq M.predicted among non-blacks MDRD (S/P/Bld) [Vol rate/Area] 74 mL/min/{1.73_m2} Normal >[address] [facility] Comment on above: Result Comment: mL/m in/1.73m2 CKD-EPI Creatinine Equation (2020) Performed By: #### L 500.2500, L100.0100 #### [facility] [address] [place], [address] Glucose [Mass/Vol] 161 mg/dL High 70-99 [facility] Comment on above: Performed By: #### L 500.2500, L100.0100 #### [facility] [address] [place], [address] Potassium [Moles/Vol] 3.9 mmol/L Normal 3.3-5.1 [facility] Comment on above: Performed By: #### L 500.2500, L100.0100 #### [facility] [address] [place], [address] Sodium [Moles/Vol] 141 mmol/L Normal 133-145 [facility] Comment on above: Performed By: #### L 500.2500, L100.0100 #### [facility] [address] [place], [address] Urea nitrogen [Mass/Vol] 37 mg/dL High 4-[address] [facility] Comment on above: Performed By: #### L 500.2500, L100.0100 #### [facility] [address] [place], [address] Basophil percentageOrdered B y: Raul Helton on 06-05-2024 Basophils/100 WBC (Bld) 0.2 % 0-[address] [facility] CBC W/Diff, Automatedon 05-14 Absolute Lymph 0.59 X10 3/uL Low 0.83-4.[address] [facility] Comment on above: Performed By: #### L 500.2500, L100.0100 #### [facility] [address] [place], [address] Absolute Neut 10.7 X10 3/uL High 2.0-7.[address] [facility] Comment on above: Performed By: #### L 500.2500, L100.0100 #### [facility] [address] [place], [address] Basophils/100 WBC (Bld) 0.2 % Normal 0-[address] [facility] Comment on above: Performed By: #### L 500.2500, L100.0100 #### [facility] [address] [place], [address] Eosinophils/100 WBC (Bld) 0.0 % Normal 0-[address] [facility] Comment on above: Performed By: #### L 500.2500, L100.0100 #### [facility] [address] [place], [address] Erythrocyte distribution width (RBC) [Ratio] 17.2 % High 11.6-14.[address] [facility] Comment on above: Performed By: #### L 500.2500, L100.0100 #### [facility] [address] [place], [address] Hematocrit (Bld) [Volume fraction] 29.4 % Low 37-[address] [facility] Comment on above: Performed By: #### L 500.2500, L100.0100 #### [facility] [address] [place], [address] Hemoglobin (Bld) [Mass/Vol] 8.7 g/dL Low 12.0-15.[address] [facility] Comment on above: Performed By: #### L 500.2500, L100.0100 #### [facility] [address] [place], [address] IG% 1.900 High 0.0-0.[address] [facility] Comment on above: Result Comment: IG% - Immature Granulocytes (promyelocytes, myelocytes and metamyelocytes) > 1% indicates that a LEFT SHIFT is Present. Performed By: #### L 500.2500, L100.0100 #### [facility] [address] [place], [address] Lymphocytes/100 WBC (Bld) 4.6 % Low 19-[address] [facility] Comment on above: Performed By: #### L 500.2500, L100.0100 #### [facility] [address] [place], [address] MCH (RBC) [Entitic mass] 29.2 pg Normal 27.0-32.[address] [facility] Comment on above: Performed By: #### L 500.2500, L100.0100 #### [facility] [address] [place], [address] MCHC (RBC) [Mass/Vol] 29.6 g/dL Low 32-36 [facility] Comment on above: Performed By: #### L 500.2500, L100.0100 #### [facility] [address] [place], [address] MCV (RBC) [Entitic vol] 98.7 fL Normal 81-[address] [facility] Comment on above: Performed By: #### L 500.2500, L100.0100 #### [facility] [address] [place], [address] Monocytes/100 WBC (Bld) 9.0 % Normal 0-[address] [facility] Comment on above: Performed By: #### L 500.2500, L100.0100 #### [facility] [address] [place], [address] Neutrophils/100 WBC (Bld) 84.3 % High 47-[address] [facility] Comment on above: Performed By: #### L 500.2500, L100.0100 #### [facility] [address] [place], [address] Nucleated RBC (Bld) [#/Vol] 0.2 10*3/uL Normal 0-[address] [facility] Comment on above: Performed By: #### L 500.2500, L100.0100 #### [facility] [address] [place], [address] Platelet mean volume (Bld) [Entitic vol] 14.3 fL High 6.2-12.[address] [facility] Comment on above: Performed By: #### L 500.2500, L100.0100 #### [facility] [address] [place], [address] Platelets (Bld) [#/Vol] 90 10*3/uL Low 150-[address] [facility] Comment on above: Performed By: #### L 500.2500, L100.0100 #### [facility] [address] [place], [address] RBC (Bld) [#/Vol] 2.98 10*6/uL Low 4.2-5.4 [facility] Comment on above: Performed By: #### L 500.2500, L100.0100 #### [facility] [address] [place], [address] RDW SD 62.4 fl High 35.1-43.[address] [facility] Comment on above: Performed By: #### L 500.2500, L100.0100 #### [facility] [address] [place], [address] WBC (Bld) [#/Vol] 12.7 10*3/uL High 4.4-11.0 [facility] Comment on above: Performed By: #### L 500.2500, L100.0100 #### [facility] [address] [place], [address] Carbon dioxide, total [Moles /volume] in Central venous bloodOrdered By: Raul Helton on 06-05-2024 CO2 [Moles/Vol] 29.0 mmol/L 21.0-32.[address] [facility] Chloride assayOrdered By: Shy Helton on 06-05-2024 Chloride [Moles/Vol] 101 mmol/L 98-108 [facility] Electrocardiogram reportOrde red By: Jermaine Hagen on 06-05-2024 EKG study [facility] Cardiovascular Services [address] [place] [address] 12 Lead EKG 06/02/24 1054 MR#: [id number] Acct: [id number] Name: ALTA BAKER Rep #:[id number] : 1950 74 From: Jermaine Hagen MD Attending Dr: Dr. Raul Helton MD Status: ADM IN Ordering Dr: Alyce Morel DO Date: Location: U Sex: F C Admitted: 06/02/24 Test Reason : SOB Blood Pressure : */* mmHG Vent. Rate : 142 BPM Atrial Rate : * BPM P-R Int : * ms QRS Dur : 70 ms QT Int : 312 ms P-R-T Axes : * 52 65 degrees QTcB Int : 479 ms Critical Test Result: High HR Atrial fibrillation with rapid ventricular response Low voltage QRS Cannot rule out Anterior infarct , age undetermined Abnormal ECG Confirmed by XIAO POLANCO, JERMAINE ([id number]), editor producer KRISSY MORALES ([id number]) on 56:46:43 AM Referred By: Wilbert Umanzor Confirmed By: JERMAINE HAGEN MD 06/05/24 0646 Date _ Jermaine Hagen MD CC: Dr. Wilbert Umanzor, DO; Dr. Kory Ibarra DO; Dr. Raul Helton MD; Dr. Alyce Morel DO ~ Signed [facility] Work Phone: [phone] Eosinophil percentageOrdered By: Raul Helton on 06-05-2024 Eosinophils/100 WBC (Bld) 0.0 % 0-[address] [facility] Erythrocyte distribution wid th ratioOrdered By: Raul Helton on 06-05-2024 Erythrocyte distribution width (RBC) [Ratio] 17.2 % High 11.6-14.[address] [facility] Erythrocyte distribution wid th standard deviationOrdered By: Raul Helton on 06-05-2024 Erythrocyte distribution width (RBC) [Entitic vol] 62.4 fL High 35.1-43.[address] [facility] Estimation of creatinine shelly aranceOrdered By: Raul Helton on 06-05-2024 Estimated Creatinine Clearance Calc 62.66 ml/min 50-[address] [facility] GFR/1.73 sq M.predicted [place] g non-blacks MDRD (S/P/Bld) [Vol rate/Area]Ordered By: Raul Helton on 06-05-2024 Estimated GFR (MDRD) Non-Af Amer 74 >[address] [facility] Comment on above: mL/min/1.73m2 CKD-EP I Creatinine Equation (2020) Hematocrit Auto (Bld) [Volum e fraction]Ordered By: Raul Helton on 06-05-2024 Hematocrit (Bld) [Volume fraction] 29.4 % Low 37-[address] [facility] Hemoglobin measurementOrdere d By: Raul Helton on 06-05-2024 Hemoglobin (Bld) [Mass/Vol] 8.7 g/dL Low 12.0-15.[address] [facility] Immature granulocytes/100 WB C Auto (Bld)Ordered By: Raul Helton on 06-05-2024 Immature granulocytes/100 WBC (Bld) 1.900 % High 0.0-0.[address] [facility] Comment on above: IG% - Immature Granu locytes (promyelocytes, myelocytes and metamyelocytes) > 1% indicates that a LEFT SHIFT is Present. Lymphocytes Auto (Unsp spec) [#/Vol]Ordered By: Raul Helton on 06-05-2024 Lymphocytes (Bld) [#/Vol] 0.59 10*3/uL Low 0.83-4.[address] [facility] Lymphocytes/100 WBC Auto (Un sp spec)Ordered By: Raul Helton on 06-05-2024 Lymphocytes/100 WBC (Bld) 4.6 % Low 19-[address] [facility] MCV (mean corpuscular volume ) determinationOrdered By: Rual Helotn on 06-05-2024 MCV (RBC) [Entitic vol] 98.7 fL 81-[address] [facility] Mean corpuscular hemoglobin (MCH) determinationOrdered By: Raul Helton on 06-05-2024 MCH (RBC) [Entitic mass] 29.2 pg 27.0-32.[address] [facility] Mean corpuscular hemoglobin concentration (MCHC) determinationOrdered By: Raul Helton on 06-05-2024 MCHC (RBC) [Mass/Vol] 29.6 g/dL Low 32-36 [facility] Mean platelet volume determi nationOrdered By: Raul Helton on 06-05-2024 Platelet mean volume (Bld) [Entitic vol] 14.3 fL High 6.2-12.[address] [facility] Monocyte percentageOrdered B y: Raul Helton on 06-05-2024 Monocytes/100 WBC (Bld) 9.0 % 0-[address] [facility] Neutrophil percentageOrdered By: Raul Helton on 06-05-2024 Neutrophils/100 WBC (Bld) 84.3 % High 47-[address] [facility] Nucleated red blood cell per centageOrdered By: Raul Helton on 06-05-2024 Nucleated RBC/100 WBC (Bld) [Ratio] 0.2 % 0-[address] [facility] Platelet countOrdered By: Shy Helton on 06-05-2024 Platelets (Bld) [#/Vol] 90 10*3/uL Low 150-[address] [facility] Potassium (Unsp spec) [Mass/ Vol]Ordered By: Raul Helton on 06-05-2024 Potassium [Moles/Vol] 3.9 mmol/L 3.3-5.1 [facility] RBC Auto (Bld) [#/Vol]Ordere d By: Raul Helton on 06-05-2024 RBC (Bld) [#/Vol] 2.98 10*6/uL Low 4.2-5.4 [facility] Serum creatinine measurement (mass/volume)Ordered By: Raul Helton on 06-05-2024 Creatinine [Mass/Vol] 0.84 mg/dL 0.70-1.20 [facility] Serum glucose measurement (m ass/volume)Ordered By: Raul Helton on 06-05-2024 Glucose [Mass/Vol] 161 mg/dL High 70-99 [facility] Serum or plasma calcium betzaida urement (mass/volume)Ordered By: Raul Helton on 06-05-2024 Calcium [Mass/Vol] 9.7 mg/dL 7.6-11.0 [facility] Serum or plasma urea nitroge n measurement (mass/volume)Ordered By: Raul Helton on 06-05-2024 Urea nitrogen [Mass/Vol] 37 mg/dL High 4-[address] [facility] Sodium levelOrdered By: Mani Helton on 06-05-2024 Sodium [Moles/Vol] 141 mmol/L 133-145 [facility] White blood cell (WBC) count Ordered By: Raul Helton on 06-05-2024 WBC (Bld) [#/Vol] 12.7 10*3/uL High 4.4-11.0 [facility] Basic Metabolic Profile (BMP )on 06-04-2024 BUN/CRE 39.9 RATIO High 10-[address] [facility] Comment on above: Performed By: #### L 500.2500, L100.0100 #### [facility] [place], [address] Calcium [Mass/Vol] 9.6 mg/dL Normal 7.6-11.0 [facility] Comment on above: Performed By: #### L 500.2500, L100.0100 #### [facility] [address] [place], [address] Chloride [Moles/Vol] 101 mmol/L Normal 98-108 [facility] Comment on above: Performed By: #### L 500.2500, L100.0100 #### [facility] [address] [place], [address] CO2 [Moles/Vol] 26.4 mmol/L Normal 21.0-32.[address] [facility] Comment on above: Performed By: #### L 500.2500, L100.0100 #### [facility] [address] [place], [address] Creatinine [Mass/Vol] 0.94 mg/dL Normal 0.70-1.20 [facility] Comment on above: Performed By: #### L 500.2500, L100.0100 #### [facility] [address] [place], [address] ECRCL 55.99 ml/min Normal 50-[address] [facility] Comment on above: Performed By: #### L 500.2500, L100.0100 #### [facility] [address] [place], [address] GAP 13 Normal 5-[address] [facility] Comment on above: Performed By: #### L 500.2500, L100.0100 #### [facility] [address] [place], [address] GFR/1.73 sq M.predicted among non-blacks MDRD (S/P/Bld) [Vol rate/Area] 64 mL/min/{1.73_m2} Normal >[address] [facility] Comment on above: Result Comment: mL/m in/1.73m2 CKD-EPI Creatinine Equation (2020) Performed By: #### L 500.2500, L100.0100 #### [facility] [address] [place], [address] Glucose [Mass/Vol] 153 mg/dL High 70-99 [facility] Comment on above: Performed By: #### L 500.2500, L100.0100 #### [facility] [address] [place], [address] Potassium [Moles/Vol] 4.1 mmol/L Normal 3.3-5.1 [facility] Comment on above: Performed By: #### L 500.2500, L100.0100 #### [facility] [address] [place], [address] Sodium [Moles/Vol] 140 mmol/L Normal 133-145 [facility] Comment on above: Performed By: #### L 500.2500, L100.0100 #### [facility] [address] [place], [address] Urea nitrogen [Mass/Vol] 37 mg/dL High 4-[address] [facility] Comment on above: Performed By: #### L 500.2500, L100.0100 #### [facility] [address] [place], [address] CBC W/Diff, Automatedon 03-2 -2024 Absolute Lymph 0.77 X10 3/uL Low 0.83-4.[address] [facility] Comment on above: Performed By: #### L 500.2500, L100.0100 #### [facility] [address] [place], [address] Absolute Neut 12.3 X10 3/uL High 2.0-7.[address] [facility] Comment on above: Performed By: #### L 500.2500, L100.0100 #### [facility] [address] [place], [address] Basophils/100 WBC (Bld) 0.1 % Normal 0-[address] [facility] Comment on above: Performed By: #### L 500.2500, L100.0100 #### [facility] [address] [place], [address] Eosinophils/100 WBC (Bld) 0.0 % Normal 0-[address] [facility] Comment on above: Performed By: #### L 500.2500, L100.0100 #### [facility] [address] [place], [address] Erythrocyte distribution width (RBC) [Ratio] 17.8 % High 11.6-14.[address] [facility] Comment on above: Performed By: #### L 500.2500, L100.0100 #### [facility] [address] [place], [address] Hematocrit (Bld) [Volume fraction] 29.1 % Low 37-[address] [facility] Comment on above: Performed By: #### L 500.2500, L100.0100 #### [facility] [address] [place], [address] Hemoglobin (Bld) [Mass/Vol] 8.7 g/dL Low 12.0-15.[address] [facility] Comment on above: Performed By: #### L 500.2500, L100.0100 #### [facility] [address] [place], [address] IG% 2.200 High 0.0-0.[address] [facility] Comment on above: Result Comment: IG% - Immature Granulocytes (promyelocytes, myelocytes and metamyelocytes) > 1% indicates that a LEFT SHIFT is Present. Performed By: #### L 500.2500, L100.0100 #### [facility] [address] [place], [address] Lymphocytes/100 WBC (Bld) 5.3 % Low 19-[address] [facility] Comment on above: Performed By: #### L 500.2500, L100.0100 #### [facility] [address] [place], [address] MCH (RBC) [Entitic mass] 29.7 pg Normal 27.0-32.[address] [facility] Comment on above: Performed By: #### L 500.2500, L100.0100 #### [facility] [address] [place], [address] MCHC (RBC) [Mass/Vol] 29.9 g/dL Low 32-36 [facility] Comment on above: Performed By: #### L 500.2500, L100.0100 #### [facility] [address] [place], [address] MCV (RBC) [Entitic vol] 99.3 fL High 81-[address] [facility] Comment on above: Performed By: #### L 500.2500, L100.0100 #### [facility] [address] [place], [address] Monocytes/100 WBC (Bld) 8.4 % Normal 0-[address] [facility] Comment on above: Performed By: #### L 500.2500, L100.0100 #### [facility] [address] [place], [address] Neutrophils/100 WBC (Bld) 84.0 % High 47-[address] [facility] Comment on above: Performed By: #### L 500.2500, L100.0100 #### [facility] [address] [place], [address] Nucleated RBC (Bld) [#/Vol] 0.3 10*3/uL Normal 0-[address] [facility] Comment on above: Performed By: #### L 500.2500, L100.0100 #### [facility] [address] [place], [address] Platelet mean volume (Bld) [Entitic vol] 13.3 fL High 6.2-12.[address] [facility] Comment on above: Performed By: #### L 500.2500, L100.0100 #### [facility] [address] [place], [address] Platelets (Bld) [#/Vol] 90 10*3/uL Low 150-[address] [facility] Comment on above: Performed By: #### L 500.2500, L100.0100 #### [facility] [address] [place], [address] RBC (Bld) [#/Vol] 2.93 10*6/uL Low 4.2-5.4 [facility] Comment on above: Performed By: #### L 500.2500, L100.0100 #### [facility] [address] [place], [address] RDW SD 63.7 fl High 35.1-43.[address] [facility] Comment on above: Performed By: #### L 500.2500, L100.0100 #### [facility] [address] [place], [address] WBC (Bld) [#/Vol] 14.6 10*3/uL High 4.4-11.0 [facility] Comment on above: Performed By: #### L 500.2500, L100.0100 #### [facility] [address] [place], [address] Basic Metabolic Profile (BMP )on 06-03-2024 BUN/CRE 29.5 RATIO High 10-[address] [facility] Comment on above: Performed By: #### L 100.0100, L500.4050 #### [facility] [address] [place], [address] Calcium [Mass/Vol] 9.6 mg/dL Normal 7.6-11.0 [facility] Comment on above: Performed By: #### L 100.0100, L500.4050 #### [facility] [address] [place], [address] Chloride [Moles/Vol] 103 mmol/L Normal 98-108 [facility] Comment on above: Performed By: #### L 100.0100, L500.4050 #### [facility] [address] [place], [address] CO2 [Moles/Vol] 24.5 mmol/L Normal 21.0-32.[address] [facility] Comment on above: Performed By: #### L 100.0100, L500.4050 #### [facility] [address] [place], [address] Creatinine [Mass/Vol] 1.09 mg/dL Normal 0.70-1.20 [facility] Comment on above: Performed By: #### L 100.0100, L500.4050 #### [facility] [address] [place], [address] ECRCL 48.29 ml/min Low 50-[address] [facility] Comment on above: Performed By: #### L 100.0100, L500.4050 #### [facility] [address] [place], [address] GAP 15 Normal 5-[address] [facility] Comment on above: Performed By: #### L 100.0100, L500.4050 #### [facility] [address] [place], [address] GFR/1.73 sq M.predicted among non-blacks MDRD (S/P/Bld) [Vol rate/Area] 54 mL/min/{1.73_m2} Low >[address] [facility] Comment on above: Result Comment: mL/m in/1.73m2 CKD-EPI Creatinine Equation (2020) Performed By: #### L 100.0100, L500.4050 #### [facility] [address] [place], [address] Glucose [Mass/Vol] 157 mg/dL High 70-99 [facility] Comment on above: Performed By: #### L 100.0100, L500.4050 #### [facility] [address] [place], [address] Potassium [Moles/Vol] 4.2 mmol/L Normal 3.3-5.1 [facility] Comment on above: Performed By: #### L 100.0100, L500.4050 #### [facility] [address] [place], [address] Sodium [Moles/Vol] 142 mmol/L Normal 133-145 [facility] Comment on above: Performed By: #### L 100.0100, L500.4050 #### [facility] [address] [place], [address] Urea nitrogen [Mass/Vol] 32 mg/dL High 4-[address] [facility] Comment on above: Performed By: #### L 100.0100, L500.4050 #### [facility] [address] [place], [address] CBC-Complete Blood Cnt No Di ffon 06-03-2024 Hemoglobin (Bld) [Mass/Vol] 8.8 g/dL Low 12.0-15.[address] [facility] Comment on above: Order Comment: REDRA W. PREVIOUS SPECIMEN REJECTED DUE TOPOSSIBLE ERRONEOUS RESULTS. 06/03/24543 Serjio Maldonado. Result Comment: SILVINA NEGRON WITH NURSE Performed By: #### L 100.0500 ####[facility] [address] [place], [address] Erythrocyte distribution width (RBC) [Ratio] 18.1 % High 11.6-14.[address] [facility] Comment on above: Order Comment: RED W. PREVIOUS SPECIMEN REJECTED DUE TOPOSSIBLE ERRONEOUS RESULTS. 06/03/2444 Serjio R Maldonado. Performed By: #### L 100.0500 ####[facility] [address] [place], [address] Hematocrit (Bld) [Volume fraction] 29.9 % Low 37-[address] [facility] Comment on above: Order Comment: REDRA W. PREVIOUS SPECIMEN REJECTED DUE TOPOSSIBLE ERRONEOUS RESULTS. 06/03/24543 Serjio R Maldonado. Performed By: #### L 100.0500 ####[facility] [address] [place], [address] MCH (RBC) [Entitic mass] 29.1 pg Normal 27.0-32.[address] [facility] Comment on above: Order Comment: REDRA W. PREVIOUS SPECIMEN REJECTED DUE TOPOSSIBLE ERRONEOUS RESULTS. 06/03/24 [facility] Serjio R Maldonado. Performed By: #### L 100.0500 ####[facility] [address] [place], [address] MCHC (RBC) [Mass/Vol] 29.4 g/dL Low 32-36 [facility] Comment on above: Order Comment: REDRA W. PREVIOUS SPECIMEN REJECTED DUE TOPOSSIBLE ERRONEOUS RESULTS. 06/03/24543 Serjio R Maldonado. Performed By: #### L 100.0500 ####[facility] [address] [place], [address] MCV (RBC) [Entitic vol] 99.0 fL Normal 81-[address] [facility] Comment on above: Order Comment: REDRA W. PREVIOUS SPECIMEN REJECTED DUE TOPOSSIBLE ERRONEOUS RESULTS. 06/03/24 Serjio R Maldonado. Performed By: #### L 100.0500 ####[facility] [address] [place], [address] Platelet mean volume (Bld) [Entitic vol] 13.9 fL High 6.2-12.[address] [facility] Comment on above: Order Comment: REDRA W. PREVIOUS SPECIMEN REJECTED DUE TOPOSSIBLE ERRONEOUS RESULTS. 06/03/24 Serjio R Maldonado. Performed By: #### L 100.0500 ####[facility] [address] [place], [address] Platelets (Bld) [#/Vol] 92 10*3/uL Low 150-[address] [facility] Comment on above: Order Comment: REDRA W. PREVIOUS SPECIMEN REJECTED DUE TOPOSSIBLE ERRONEOUS RESULTS. 06/03/24543 Serjio R Maldonado. Performed By: #### L 100.0500 ####[facility] [address] [place], [address] RBC (Bld) [#/Vol] 3.02 10*6/uL Low 4.2-5.4 [facility] Comment on above: Order Comment: REDRA W. PREVIOUS SPECIMEN REJECTED DUE TOPOSSIBLE ERRONEOUS RESULTS. 06/03/24543 Serjio R Maldonado. Performed By: #### L 100.0500 ####[facility] [address] [place], [address] RDW SD 64.7 fl High 35.1-43.[address] [facility] Comment on above: Order Comment: REDRA W. PREVIOUS SPECIMEN REJECTED DUE TOPOSSIBLE ERRONEOUS RESULTS. 06/03/24543 Serjio R Maldonado. Performed By: #### L 100.0500 ####[facility] [address] [place], [address] WBC (Bld) [#/Vol] 12.3 10*3/uL High 4.4-11.0 [facility] Comment on above: Order Comment: REDRA W. PREVIOUS SPECIMEN REJECTED DUE TOPOSSIBLE ERRONEOUS RESULTS. 06/03/24543 Serjio R Maldonado. Performed By: #### L 100.0500 ####[facility] [address] [place], [address] HCT Normal 37-[address] [facility] Comment on above: Result Comment: This specimen has been REJECTED due to Laboratory criteria: POSSIBLE ERRONEOUS RESULTS. DMILLER has been notified of need of recollection. 06/03/24541 Serjio R Maldonado Performed By: #### L 100.0100, L500.4050 #### [facility] [address] [place], [address] HGB Normal 12.0-15.[address] [facility] Comment on above: Result Comment: This specimen has been REJECTED due to Laboratory criteria: POSSIBLE ERRONEOUS RESULTS. DMILLER has been notified of need of recollection. 06/03/24541 Serjio R Maldonado Performed By: #### L 100.0100, L500.4050 #### [facility] [address] [place], [address] MCH Normal 27.0-32.[address] [facility] Comment on above: Result Comment: This specimen has been REJECTED due to Laboratory criteria: POSSIBLE ERRONEOUS RESULTS. DMILLER has been notified of need of recollection. 06/03/24541 Serjio R Maldonado Performed By: #### L 100.0100, L500.4050 #### [facility] [address] [place], [address] MCHC Normal 32-[address] [facility] Comment on above: Result Comment: This specimen has been REJECTED due to Laboratory criteria: POSSIBLE ERRONEOUS RESULTS. DMILLER has been notified of need of recollection. 06/03/24541 Serjio R Maldonado Performed By: #### L 100.0100, L500.4050 #### [facility] [address] [place], [address] MCV Normal 81-[address] [facility] Comment on above: Result Comment: This specimen has been REJECTED due to Laboratory criteria: POSSIBLE ERRONEOUS RESULTS. DMILLER has been notified of need of recollection. 06/03/24541 Serjio R Maldonado Performed By: #### L 100.0100, L500.4050 #### [facility] [address] [place], [address] PLT Normal 150-[address] [facility] Comment on above: Result Comment: This specimen has been REJECTED due to Laboratory criteria: POSSIBLE ERRONEOUS RESULTS. DMILLER has been notified of need of recollection. 06/03/24 0542 Serjio R Maldonado Performed By: #### L 100.0100, L500.4050 #### [facility] [address] [place], [address] RBC Normal 4.2-5.[address] [facility] Comment on above: Result Comment: This specimen has been REJECTED due to Laboratory criteria: POSSIBLE ERRONEOUS RESULTS. DMILLER has been notified of need of recollection. 06/03/24 0542 Serjio R Maldonado Performed By: #### L 100.0100, L500.4050 #### [facility] [address] [place], [address] RDW CV Normal 11.6-14.[address] [facility] Comment on above: Result Comment: This specimen has been REJECTED due to Laboratory criteria: POSSIBLE ERRONEOUS RESULTS. DMILLER has been notified of need of recollection. 06/03/2442 Serjio R Maldonado Performed By: #### L 100.0100, L500.4050 #### [facility] [address] [place], [address] RDW SD Normal 35.1-43.[address] [facility] Comment on above: Result Comment: This specimen has been REJECTED due to Laboratory criteria: POSSIBLE ERRONEOUS RESULTS. DMILLER has been notified of need of recollection. 06/03/24541 Serjio R Maldonado Performed By: #### L 100.0100, L500.4050 #### [facility] [address] [place], [address] WBC Normal 4.4-11.[address] [facility] Comment on above: Result Comment: This specimen has been REJECTED due to Laboratory criteria: POSSIBLE ERRONEOUS RESULTS. DMILLER has been notified of need of recollection. 06/03/24 0542 Serjio R Maldonado Performed By: #### L 100.0100, L500.4050 #### [facility] [address] [place], [address] Echocardiogram study reportO rdered By: Jermaine Hagen on 06-03-2024 Study report [facility] [place] [address] Echo Complete 06/03/24 1026 MR#: [id number] Acct: [id number] Name: ALTA BAKER Rep #:[id number] : 1950 74 From: Jermaine Garcia Attending Dr: Dr. Raul Helton MD Status: ADM IN Ordering Dr: Wilbert Umanzor DO Da te: 06/02/24 Location: [facility] Sex: F C Admitted: 06/02/24 Reason For Study : CHF Procedure This was a 2D Doppler, Color Flow transthoracic echocardiogram. Exam performed portable in patient room. Left Ventricle Normal LV size. Mild concentric left ventricular hypertrophy. The left ventricular ejection fraction is 40 %. There is mild global hypokinesis of the left ventricle. Right Ventricle Normal RV size. Normal systolic function. Atria The left atrium is severely enlarged. Normal right atrium. Mitral Valve Normal mitral valve. Mild (1+) eccentric mitral valve insufficiency. Tricuspid Valve Normal tricuspid valve. Mild to moderate (1-2+) tricuspid valve insufficiency. Pulmonary artery systolic pressure is 52 mmHg. Aortic Valve Trisinus/trileaflet aortic valve. Mild (1+) eccentric aortic valve insufficiency. Pulmonic Valve Normal pulmonic valve. Great Vessels Normal aortic root. The pulmonary artery is normal size. Inferior vena cava collapse with respiration. Pericardium/Pleural Small (<1.0 cm) pericardial effusion. There are no echocardiographic indicationsof cardiac tamponade. MMode/2D Measurements & Calculations LVIDd: 4.2 cm IVSd: 1.2 cm Ao root diam: 3.1 cm LVIDs: 3.7 cm LVPWd: 1.2 cm RVDd: 3.1 cm FS: 11.2 % LAV(MOD-sp2): 141.6 ml LVAd ap4: 23.9 cm2 LVAd ap2: 26.8 cm2 LVLd ap4: 7.6 cm LVLd ap2: 7.7 cm EDV(MOD-sp4): 63.9 ml EDV(MOD-sp2): 77.5 ml EDV(sp4-el): 64.1 ml EDV(sp2-el): 78.6 ml LVAs ap4: 17.1 cm2 LVAs ap2: 19.5 cm2 LVLs ap4: 6.7 cm LVLs ap2: 7.3 cm ESV(MOD-sp4): 36.9 ml ESV(MOD-sp2): 44.2 ml ESV(sp4-el): 37.1 ml ESV(sp2-el): 43.9 ml EF(MOD-sp4): 42.3 % EF(MOD-sp2): 43.0 % EF(sp4-el): 42.1 % SV(MOD-sp4): 27.0 ml SV(MOD-sp2): 33.3 ml SV(sp4-el): 27.0 ml SI(MOD-sp4): 14.0 ml/m2 SI(MOD-sp2): 17.2 ml/m2 LA dimension(2D): 6.0 cm Doppler Measurements & Calculations MV E max concetta: 148.1 cm/sec Ao V2 max: 179.1 cm/sec AI max concetta: 427.1 cm/sec Ao max P.9 mmHg AI max P.0 mmHg Ao V2 mean: 121.2 cm/sec AI dec slope: 371.9 cm/sec2 Ao mean P.7 mmHg AI P1/2t: 336.4 msec Ao V2 VTI: 31.4 cm AV (velocity ratio): 0.58 LV V1 max: 108.3 cm/sec TR max concetta: 347.4 cm/sec LV V1 max P.7 mmHg TR max P.3 mmHg LV V1 mean P.6 mmHg LV V1 mean: 76.9 cm/sec LV V1 VTI: 18.2 cm ECHO/Echo Complete Interpretation Summary Normal LV size. The left ventricular ejection fraction is 40 %. Mild concentric left ventricular hypertrophy. There is mild global hypokinesis of the left ventricle. Pulmonary artery systolic pressure is 52 mmHg. There are no echocardiographic indications of cardiac tamponade. Compared to previous study, the left ventricular systolic function has improved.. ___ Ordering Physician: Wilbert Umanzor Referring Physician: Kory Ibarar Performed By: Kasandra Whitten RDCS 06/03/24 1222 Date _ Jermaine Hagen MD CC: Dr. Wilbert Umanzor DO; Dr. Kory Ibarra DO; Dr. Raul Helton MD~ Date Dictated: 06/03/24 1026 Date Transcribed: 06/03/24 1222 Outsole Splicer: Signed [facility] Work Phone: 12 Lead EKGon 06-02-2024 12 Lead EKG [facility] Cardiovascular Services [address] [place] [address] 12 Lead EKG 06/02/24 1054 MR#: [id number] Acct: [id number] Name: ALTA BAKER Rep #: [id number] : 1950 74 From: Jermaine Hagen MD Attending Dr: Dr. Raul Helton MD Status: ADM IN Ordering Dr: Alyce Morel DO Date: 06/02/24 Location: [facility] Sex: F C Admitted: 06/02/24 Test Reason : SOB Blood Pressure : */* mmHG Vent. Rate : 142 BPM Atrial Rate : * BPM P-R Int : * ms QRS Dur : 70 ms QT Int : 312 ms P-R-T Axes : * 52 65 degrees QTcB Int : 479 ms Critical Test Result: High HR Atrial fibrillation with rapid ventricular response Low voltage QRS Cannot rule out Anterior infarct , age undetermined Abnormal ECG Confirmed by XIAO POLANCO, JERMAINE ([id number]), editor producer KRISSY MORALES ([id number]) on 06/05/2024 6:46:43 AM Referred By: Wilbert Umanzor Confirmed By: JERMAINE HAGEN MD 06/05/24 0646 Date Jermaine Hagen MD CC: Dr. Wilbert Umanzor DO; Dr. Kory Ibarra DO; Dr. Raul Helton MD; Dr. Alyce Morel DO Signed Normal [facility] Absolute neutrophil countOrd ered By: Alyce Morel on 06-02-2024 Neutrophils (Bld) [#/Vol] 5.5 10*3/uL 2.0-7.[address] [facility] Anion gap in Serum or Plasma Ordered By: Alyce Morel on 06-02-2024 Anion gap [Moles/Vol] 13 mmol/L 07-27 [facility] BUN/creatinine ratioOrdered By: Alyce Morel on 06-02-2024 Urea nitrogen/Creatinine [Mass ratio] 19.7 mg/mg 01-[address] [facility] Basic Metabolic Profile (BMP )on 06-02-2024 BUN/CRE 19.7 RATIO Normal 01-[address] [facility] Comment on above: Performed By: #### L 100.0100, L500.4050 #### [facility] [address] [place], [address] Calcium [Mass/Vol] 8.8 mg/dL Normal 7.6-11.0 [facility] Comment on above: Performed By: #### L 100.0100, L500.4050 #### [facility] [address] [place], [address] Chloride [Moles/Vol] 107 mmol/L Normal 98-108 [facility] Comment on above: Performed By: #### L 100.0100, L500.4050 #### [facility] [address] [place], [address] CO2 [Moles/Vol] 20.8 mmol/L Low 21.0-32.[address] [facility] Comment on above: Performed By: #### L 100.0100, L500.4050 #### [facility] [address] [place], [address] Creatinine [Mass/Vol] 0.69 mg/dL Low 0.70-1.20 [facility] Comment on above: Performed By: #### L 100.0100, L500.4050 #### [facility] [address] [place], [address] ECRCL 67.37 ml/min Normal 50-[address] [facility] Comment on above: Performed By: #### L 100.0100, L500.4050 #### [facility] [address] [place], [address] GAP 13 Normal 5-[address] [facility] Comment on above: Performed By: #### L 100.0100, L500.4050 #### [facility] [address] [place], [address] GFR/1.73 sq M.predicted among non-blacks MDRD (S/P/Bld) [Vol rate/Area] 92 mL/min/{1.73_m2} Normal >[address] [facility] Comment on above: Result Comment: mL/m in/1.73m2 CKD-EPI Creatinine Equation (2020) Performed By: #### L 100.0100, L500.4050 #### [facility] [address] [place], [address] Glucose [Mass/Vol] 175 mg/dL High 70-99 [facility] Comment on above: Performed By: #### L 100.0100, L500.4050 #### [facility] [address] [place], [address] Potassium [Moles/Vol] 3.6 mmol/L Normal 3.3-5.1 [facility] Comment on above: Performed By: #### L 100.0100, L500.4050 #### [facility] [address] [place], [address] Sodium [Moles/Vol] 141 mmol/L Normal 133-145 [facility] Comment on above: Performed By: #### L 100.0100, L500.4050 #### [facility] [address] [place], [address] Urea nitrogen [Mass/Vol] 14 mg/dL Normal 4-[address] [facility] Comment on above: Performed By: #### L 100.0100, L500.4050 #### [facility] [address] [place], [address] Basophil percentageOrdered B y: Alyce Morel on 06-02-2024 Basophils/100 WBC (Bld) 0.6 % 0-[address] [facility] CBC W/Diff, Automatedon 05-14 Absolute Lymph 1.86 X10 3/uL Normal 0.83-4.[address] [facility] Comment on above: Performed By: #### L 100.0100, L500.4050 #### [facility] [address] [place], [address] Absolute Neut 5.5 X10 3/uL Normal 2.0-7.[address] [facility] Comment on above: Performed By: #### L 100.0100, L500.4050 #### [facility] [address] [place], [address] Basophils/100 WBC (Bld) 0.6 % Normal 0-[address] [facility] Comment on above: Performed By: #### L 100.0100, L500.4050 #### [facility] Laboratory [address] [place], [address] Eosinophils/100 WBC (Bld) 2.8 % Normal 0-[address] [facility] Comment on above: Performed By: #### L 100.0100, L500.4050 #### [facility] Laboratory [address] [place], [address] Erythrocyte distribution width (RBC) [Ratio] 13.1 % Normal 11.6-14.[address] [facility] Comment on above: Performed By: #### L 100.0100, L500.4050 #### [facility] Laboratory [address] [place], [address] Hematocrit (Bld) [Volume fraction] 43.0 % Normal 37-[address] [facility] Comment on above: Performed By: #### L 100.0100, L500.4050 #### [facility] Laboratory [address] [place], [address] Hemoglobin (Bld) [Mass/Vol] 14.0 g/dL Normal 12.0-15.[address] [facility] Comment on above: Performed By: #### L 100.0100, L500.4050 #### [facility] Laboratory [address] [place], [address] IG% 0.400 Normal 0.0-0.[address] [facility] Comment on above: Result Comment: IG% - Immature Granulocytes (promyelocytes, myelocytes and metamyelocytes) > 1% indicates that a LEFT SHIFT is Present. Performed By: #### L 100.0100, L500.4050 #### [facility] Laboratory [address] [place], [address] Lymphocytes/100 WBC (Bld) 22.6 % Normal 19-[address] [facility] Comment on above: Performed By: #### L 100.0100, L500.4050 #### [facility] Laboratory [address] [place], [address] MCH (RBC) [Entitic mass] 29.5 pg Normal 27.0-32.[address] [facility] Comment on above: Performed By: #### L 100.0100, L500.4050 #### [facility] Laboratory [address] [place], [address] MCHC (RBC) [Mass/Vol] 32.6 g/dL Normal 32-36 [facility] Comment on above: Performed By: #### L 100.0100, L500.4050 #### [facility] Laboratory [address] [place], [address] MCV (RBC) [Entitic vol] 90.7 fL Normal 81-[address] [facility] Comment on above: Performed By: #### L 100.0100, L500.4050 #### [facility] Laboratory [address] [place], [address] Monocytes/100 WBC (Bld) 6.7 % Normal 0-[address] [facility] Comment on above: Performed By: #### L 100.0100, L500.4050 #### [facility] Laboratory [address] [place], [address] Neutrophils/100 WBC (Bld) 66.9 % Normal 47-[address] [facility] Comment on above: Performed By: #### L 100.0100, L500.4050 #### [facility] Laboratory [address] [place], [address] Nucleated RBC (Bld) [#/Vol] 0 10*3/uL Normal 0-[address] [facility] Comment on above: Performed By: #### L 100.0100, L500.4050 #### [facility] Laboratory [address] [place], [address] Platelet mean volume (Bld) [Entitic vol] 10.3 fL Normal 6.2-12.[address] [facility] Comment on above: Performed By: #### L 100.0100, L500.4050 #### [facility] Laboratory [address] [place], [address] Platelets (Bld) [#/Vol] 271 10*3/uL Normal 150-[address] [facility] Comment on above: Performed By: #### L 100.0100, L500.4050 #### [facility] Laboratory [address] [place], [address] RBC (Bld) [#/Vol] 4.74 10*6/uL Normal 4.2-5.4 [facility] Comment on above: Performed By: #### L 100.0100, L500.4050 #### [facility] Laboratory [address] [place], [address] RDW SD 43.3 fl Normal 35.1-43.[address] [facility] Comment on above: Performed By: #### L 100.0100, L500.4050 #### [facility] Laboratory [address] [place], [address] WBC (Bld) [#/Vol] 8.2 10*3/uL Normal 4.4-11.0 [facility] Comment on above: Performed By: #### L 100.0100, L500.4050 #### [facility] Laboratory [address] [place], [address] Carbon dioxide, total [Moles /volume] in Central venous bloodOrdered By: Alyce Morel on 06-02-2024 CO2 [Moles/Vol] 20.8 mmol/L Low 21.0-32.[address] [facility] Chest 1 View (Portable)on Chest 1 View (Portable) [facility] Imaging Services [address] [place] [address] Chest 1 View (Portable) MR#: [id number] Acct: [id number] Name: ALTA BAKER Rep #: [id number] : 1950 F 74 From: Farhat Bustillo MD PCP: Dr. Kory Ibarra DO Status: REG ER Study: Chest 1 View (Portable) Date of Exam: 06/02/24 Exam# [id number] Ordering Dr: Alyce Morel DO EXAM: XR Chest, 1 View CLINICAL INDICATION: DYSPNEA TECHNIQUE: Frontal view of the chest. COMPARISON: No relevant prior studies available. FINDINGS: LUNGS AND PLEURAL SPACES: See below. HEART: Cardiomegaly with mild congestion. MEDIASTINUM: Unremarkable. Normal mediastinal contour. BONES/JOINTS: Unremarkable. No acute fracture. RAD/Chest 1 View (Portable) IMPRESSION: Cardiomegaly with mild congestion. Reading [facility] CC: Dr. Kory Ibarra DO; Dr. Alyce Morel DO Outsole Splicer: Signed Normal [facility] Chloride assayOrdered By: Alycia Morel on 06-02-2024 Chloride [Moles/Vol] 107 mmol/L 98-108 [facility] Echo Completeon 06-02-20[address] [facility] [place] [address] Echo Complete 06/03/24 1026 MR#: [id number] Acct: [id number] Name: ALTA BAKER Rep #: [id number] : 1950 74 From: Jermaine Hagen MD Attending Dr: Dr. Raul Helton MD Status: ADM IN Ordering Dr: Wilbert Umanzor DO Date: 06/02/24 Location: [facility] Sex: F C Admitted: 06/02/24 Reason For Study : CHF Procedure This was a 2D Doppler, Color Flow transthoracic echocardiogram. Exam performed portable in patient room. Left Ventricle Normal LV size. Mild concentric left ventricular hypertrophy. The left ventricular ejection fraction is 40 %. There is mild global hypokinesis of the left ventricle. Right Ventricle Normal RV size. Normal systolic function. Atria The left atrium is severely enlarged. Normal right atrium. Mitral Valve Normal mitral valve. Mild (1+) eccentric mitral valve insufficiency. Tricuspid Valve Normal tricuspid valve. Mild to moderate (1-2+) tricuspid valve insufficiency. Pulmonary artery systolic pressure is 52 mmHg. Aortic Valve Trisinus/trileaflet aortic valve. Mild (1+) eccentric aortic valve insufficiency. Pulmonic Valve Normal pulmonic valve. Great Vessels Normal aortic root. The pulmonary artery is normal size. Inferior vena cava collapse with respiration. Pericardium/Pleural Small (<1.0 cm) pericardial effusion. There are no echocardiographic indications of cardiac tamponade. MMode/2D Measurements Calculations LVIDd: 4.2 cm IVSd: 1.2 cm Ao root diam: 3.1 cm LVIDs: 3.7 cm LVPWd: 1.2 cm RVDd: 3.1 cm FS: 11.2 % LAV(MOD-sp2): 141.6 ml LVAd ap4: 23.9 cm2 LVAd ap2: 26.8 cm2 LVLd ap4: 7.6 cm LVLd ap2: 7.7 cm EDV(MOD-sp4): 63.9 ml EDV(MOD-sp2): 77.5 ml EDV(sp4-el): 64.1 ml EDV(sp2-el): 78.6 ml LVAs ap4: 17.1 cm2 LVAs ap2: 19.5 cm2 LVLs ap4: 6.7 cm LVLs ap2: 7.3 cm ESV(MOD-sp4): 36.9 ml ESV(MOD-sp2): 44.2 ml ESV(sp4-el): 37.1 ml ESV(sp2-el): 43.9 ml EF(MOD-sp4): 42.3 % EF(MOD-sp2): 43.0 % EF(sp4-el): 42.1 % SV(MOD-sp4): 27.0 ml SV(MOD-sp2): 33.3 ml SV(sp4-el): 27.0 ml SI(MOD-sp4): 14.0 ml/m2 SI(MOD-sp2): 17.2 ml/m2 LA dimension(2D): 6.0 cm Doppler Measurements Calculations MV E max concetta: 148.1 cm/sec Ao V2 max: 179.1 cm/sec AI max concetta: 427.1 cm/sec Ao max P.9 mmHg AI max P.0 mmHg Ao V2 mean: 121.2 cm/sec AI dec slope: 371.9 cm/sec2 Ao mean P.7 mmHg AI P1/2t: 336.4 msec Ao V2 VTI: 31.4 cm AV (velocity ratio): 0.58 LV V1 max: 108.3 cm/sec TR max concetta: 347.4 cm/sec LV V1 max P.7 mmHg TR max P.3 mmHg LV V1 mean P.6 mmHg LV V1 mean: 76.9 cm/sec LV V1 VTI: 18.2 cm ECHO/Echo Complete Interpretation Summary Normal LV size. The left ventricular ejection fraction is 40 %. Mild concentric left ventricular hypertrophy. There is mild global hypokinesis of the left ventricle. Pulmonary artery systolic pressure is 52 mmHg. There are no echocardiographic indications of cardiac tamponade. Compared to previous study, the left ventricular systolic function has improved.. ___ Ordering Physician: Wilbert Umanzor Referring Physician: Kory Ibarra Performed By: Kasandra Whitten RDCS 06/03/24 1222 Date Jermaine Hagen MD CC: Dr. Wilbetr Umanzor DO; Dr. Kory Ibarra DO; Dr. Raul Helton MD Date Dictated: 06/03/24 1026 Date Transcribed: 06/03/24 1222 Outsole Splicer: Signed Normal [facility] Emergency Department Summary on 06-02-2024 Emergency Department Summary [facility] Medical Records Department [address] [place] [address] Emergency Department Summary 06/02/24 MR#: [id number] Acct: [id number] Name: ALTA BAKER Rep #: [id number] : 1950 74 From: Alyce Morel DO PCP: Dr. Kory Ibarra DO Status:ADM IN Location: [address] History of Present Illness Chief Complaint: Shortness of Breath Detail of Chief Complaint: Shortness of breath Informant: patient Narrative Narrative: Patient presents shortness of breath that started 5 days ago. She denies significant cough. She denies chest pain. Denies fever. She has history of COPD and wears 1-1/2 to 2 L at all times at home. Patient also wears CPAP at night. Patient also with history of A-fib. [facility] Medical History (Updated 06/02/24 @ 13:[address] Alyce Morel DO) Non-smoker CPAP (continuous positive airway pressure) dependence On home oxygen therapy Atrial fibrillation Hypertension Asthma Depression Atrial fibrillation with RVR Anticoagulant long-term use Acute respiratory failure with hypoxia Obstructive sleep apnea Congestive heart failure (CHF) Dyslipidemia HTN (hypertension) Paroxysmal atrial fibrillation Morbid obesity with body mass index of 50.0-59.9 in adult Home Medications ???Medication ???Instructions ???Recorded ???Last Taken ???Type furosemide 40 mg tablet 40 mg PO BID diuretic 10/27/1305/01 History digoxin 125 mcg (0.125 mg) tablet 125 mcg PO DAILY heart rate 01/2307/14/16 History (Digox) lisinopril 10 mg tablet 20 mg PO DAILY blood pressure 01/1307/14/16 History metoprolol tartrate 50 mg tablet 100 mg PO BID blood pressure 01/2307/14/16 History potassium chloride 20 mEq 20 meq PO DAILY supplement 6 07/14/16 History tablet,extended release(part/cryst) (Klor-Con M) atorvastatin 10 mg tablet 10 mg PO QHS cholesterol 07/14/16 07/13/16 History apixaban 5 mg tablet (Eliquis) 5 mg PO BID blood thinner 01/18/22 Unknown History albuterol sulfate 0.63 mg/3 mL 0.63 mg (3 mL) inhalation Q4H PRN 01/22/22 Unknown Rx solution for nebulization shortness of breath or wheezing #75 mL guaifenesin 1,200 mg tablet, 1,200 mg PO BID cough #10 tabs 01/03 Unknown Rx extended release 12 hr (Mucus Relief ER) amoxicillin 875 mg-potassium 1 tab PO BID #14 tabs 12/03/23 Unk nown Rx clavulanate 125 mg tablet dexamethasone 6 mg tablet 6 mg PO DAILY #7 tabs 12/03/23 Unk nown Rx fluconazole 200 mg tablet 200 mg PO DAILY #7 tabs 12/03/23 U nknown Rx amoxicillin 875 mg-potassium 1 tab PO Q12H 10 days #20 tabs Unknown Rx clavulanate 125 mg tablet folic acid 1 mg tablet 1 mg PO QDAY 05/25/24 Unknown Hist ory mometasone-formoterol HFA 100 inhalation 05/25/24 Unknown Histor y mcg-5 mcg/actuation aerosol inhaler (Dulera) sertraline 50 mg tablet 50 mg PO QHS mental health 5 Unknown History tiotropium bromide 2.5 inhalation DAILY 05/25/24 Unknown History mcg/actuation mist for inhalation (Spiriva Respimat) Allergy/AdvReac Type Severity Reaction Status Date / Time bee venom protein (honey Allergy Other Verified 05/25/24 15:20 bee) (bee sting) Opioids - Morphine Analogues Allergy Other Verified 05/25/24 15:20 (narcotics) Tetanus Vaccines and Toxoid Allergy Unknown Verified 05/25/24 15:20 (Tetanus Vaccines Toxoid) Family History Grandmother Breast cancer Father CVA (cerebral vascular accident) Surgical History H/O oophorectomy History of appendectomy Social History household members: children and none housing: house number of children: 2 current occupational status: retired pets and animals: Yes (2 dogs/2 cats) Smoking Status: Never smoker alcohol intake: never substance use type: does not use ROS ROS ED Review of Systems ROS Unobtainable: other Constitutional Constitutional ED: Reports lethargy; Denies chills, fever(s), sweats or weight loss Eyes Eyes: Denies blurry vision, change in vision or diplopia ENT ENT ED: Denies rhinorrhea or sore throat Cardiovascular Cardiovascular: Denies chest pain, orthopnea or racing heartbeat Respiratory/Chest Respiratory/Chest: Reports dyspnea and dyspnea on exertion; Denies cough, orthopnea or sputum Gastrointestinal Gastrointestinal: Denies abdominal pain, diarrhea, nausea or vomiting Genitourinary Genitourinary ED: Denies dysuria, hematuria or urinary frequency Musculoskeletal Musculoskeletal: Denies arthralgias, back pain, myalgias or neck pain Integumentary Denies abscess, Abrasions or rash Neurologic Neurologic: Denies headache(s) or weakness Psychiatric Psy (more content not included)... Normal [facility] Eosinophil percentageOrdered By: Alyce Morel on 06-02-2024 Eosinophils/100 WBC (Bld) 2.8 % 0-[address] [facility] Erythrocyte distribution wid th ratioOrdered By: Alyce Morel on 06-02-2024 Erythrocyte distribution width (RBC) [Ratio] 13.1 % 11.6-14.[address] [facility] Erythrocyte distribution wid th standard deviationOrdered By: Alyce Morel on 06-02-2024 Erythrocyte distribution width (RBC) [Entitic vol] 43.3 fL 35.1-43.[address] [facility] Estimation of creatinine shelly aranceOrdered By: Alyce Morel on 06-02-2024 Estimated Creatinine Clearance Calc 67.37 ml/min 50-[address] [facility] GFR/1.73 sq M.predicted austin g non-blacks MDRD (S/P/Bld) [Vol rate/Area]Ordered By: Martha Maria Teresa on 06-02-2024 Estimated GFR (MDRD) Non-Af Amer 92 >[address] [facility] Comment on above: mL/min/1.73m2 CKD-EP I Creatinine Equation (2020) H AND P Exam - [facility] 06-02-2024 H&P Exam - Hospitalist [facility] Medical Records Department [address] [place] [address] H P Exam - Hospitalist 06/02/24 1320 MR#: [id number] Acct: [id number] Name: ALTA BAKER Rep #: [id number] : 1950 74 From: Wilbert Umanzor DO PCP: Dr. Kory Ibarra DO Status:ADM IN Location: [facility] [id number] HPI - General General Date of Admission: 06/02/24 Date of Service: 06/02/24 Chief Complaint: Worsening shortness of breath HPI Narrative ALTA BAKER, is a 74 F who presented to [facility] ED on 06/02/2024 with worsening shortness of breath. Patient has history of COPD and wears 1 to 2 L at baseline. Medical history also significant for permanent A-fib, HFpEF, pulmonary hypertension and depression. She receives most of her care through [facility]. She was recently hospitalized at [facility] from 04/27-05/08 for COPD exacerbation in setting of influenza A and MSSA pneumonia, digoxin toxicity and NICK; reviewed discharge summary in [facility]. She lives at home with her daughter and was able to be discharged home after that hospitalization. She presented today with worsening shortness of breath over the past 4 to 5 days. Chest x-ray showed cardiomegaly with mild congestion. Was noted to be in A-fib with RVR with heart rate to the 140s; was given a dose of IV Cardizem with improvement to the 100s. COVID/flu/RSV negative. Lactic acid was 3.7, CBC and BMP otherwise unremarkable. Was given a breathing treatment and a dose of IV steroids with concern for COPD exacerbation, and hospitalist was contacted for admission. I saw the patient at bedside in the ED. Patient was sitting back comfortably in bed and breathing comfortably on 2 L nasal cannula at rest. She did have mild wheezing with crackles noted in upper airways bilaterally but otherwise had good air movement throughout. She reported mild lower extremity swelling today but notes it is not far from her baseline. She denies any recent fevers or chills. Has been taking her home medications as prescribed. No other acute concerns at this time. [facility] Medical History (Updated 06/02/24 @ 18:[address] Wilbert Umanzor, DO) Congestive heart failure (CHF) Anxiety Pulmonary embolism COPD (chronic obstructive pulmonary disease) Non-smoker CPAP (continuous positive airway pressure) dependence On home oxygen therapy Atrial fibrillation Hypertension Asthma Depression Atrial fibrillation with RVR Anticoagulant long-term use Acute respiratory failure with hypoxia Obstructive sleep apnea Congestive heart failure (CHF) Dyslipidemia HTN (hypertension) Paroxysmal atrial fibrillation Morbid obesity with body mass index of 50.0-59.9 in adult Home Medications ???Medication ???Instructions ???Recorded ???Last Taken ???Type furosemide 40 mg tablet 40 mg PO BID diuretic 10/27/1305/01 History digoxin 125 mcg (0.125 mg) tablet 125 mcg PO DAILY heart rate 01/2307/14/16 History (Digox) lisinopril 10 mg tablet 20 mg PO DAILY blood pressure 01/1307/14/16 History metoprolol tartrate 50 mg tablet 100 mg PO BID blood pressure 01/2307/14/16 History potassium chloride 20 mEq 20 meq PO DAILY supplement 6 07/14/16 History tablet,extended release(part/cryst) (Klor-Con M) atorvastatin 10 mg tablet 10 mg PO QHS cholesterol 07/14/16 07/13/16 History apixaban 5 mg tablet (Eliquis) 5 mg PO BID blood thinner 01/18/22 Unknown History albuterol sulfate 0.63 mg/3 mL 0.63 mg (3 mL) inhalation Q4H PRN 01/22/22 Unknown Rx solution for nebulization shortness of breath or wheezing #75 mL guaifenesin 1,200 mg tablet, 1,200 mg PO BID cough #10 tabs 01/03 Unknown Rx extended release 12 hr (Mucus Relief ER) amoxicillin 875 mg-potassium 1 tab PO BID sinusitis #14 tabs Unknown Rx clavulanate 125 mg tablet dexamethasone 6 mg tablet 6 mg PO DAILY #7 tabs 12/03/23 Unk nown Rx fluconazole 200 mg tablet 200 mg PO DAILY #7 tabs 12/03/23 U nknown Rx amoxicillin 875 mg-potassium 1 tab PO Q12H sinusitis 10 days Unknown Rx clavulanate 125 mg tablet #20 tabs folic acid 1 mg tablet 1 mg PO DAILY see PCP 05/25/24 Unk nown History mometasone-formoterol HFA 100 inhalation wheezing 05/25/24 Unkno wn History mcg-5 mcg/actuation aerosol inhaler (Dulera) sertraline 50 mg tablet 50 mg PO QHS mental health 5 Unknown History tiotropium bromide 2.5 inhalation DAILY wheezing 05/25/24 Unknown History mcg/actuation mist for inhalation (Spiriva Respimat) Allergy/AdvReac Type Severity Reaction Status Date / Time bee venom protein (honey Allergy Other Verified 05/25/24 15:20 bee) (bee sting) Opioids - Morphine Analogues Allergy Other Verified 05/25/24 15:20 (narcotics) Tetanus Vaccines and Toxoid Allergy Unknown Verified (more content not included)... Normal [facility] Hematocrit Auto (Bld) [Volum e fraction]Ordered By: Alyce Morel on 06-02-2024 Hematocrit (Bld) [Volume fraction] 43.0 % 37-[address] [facility] Hemoglobin measurementOrdere d By: Alyce Morel on 06-02-2024 Hemoglobin (Bld) [Mass/Vol] 14.0 g/dL 12.0-15.[address] [facility] Immature granulocytes/100 WB C Auto (Bld)Ordered By: Alyce Morel on 06-02-2024 Immature granulocytes/100 WBC (Bld) 0.400 % 0.0-0.[address] [facility] Comment on above: IG% - Immature Granu locytes (promyelocytes, myelocytes and metamyelocytes) > 1% indicates that a LEFT SHIFT is Present. Influenza virus A and B and SARS-CoV-2 (COVID-19) and Respiratory syncytial virus RNAOrdered By: Alyce Morel on 06-02-2024 SARS-CoV-2 (COVID-19) RNA STEPHANIE+probe Ql (Unsp spec) [facility] L499.0042on 06-02-2024 Trop T High Sen 23 ng/L High <=[address] [facility] Comment on above: Performed By: #### L 100.0100, L500.4050 #### [facility] Laboratory [address] [place], [address] L499.0043on 06-02-2024 Trop T High Sen Normal <=[address] [facility] Comment on above: Result Comment: PER [employer]IG[employer] INVESTIGATOR NO LONGER NEEDED Performed By: #### L 500.2500, L100.0100 #### [facility] Laboratory [address] [place], [address] L501.4021on 06-02-2024 Trop T High Sen 9 ng/L Normal <=[address] [facility] Comment on above: Performed By: #### L 100.0100, L500.4050 #### [facility] Laboratory [address] [place], [address] L503.7505on 06-02-2024 Natriuretic peptide B (Bld) [Mass/Vol] 168 pg/mL Normal <=[address] [facility] Comment on above: Result Comment: Hear t Failure Unlikely: < 300 pg/mL Heart Failure Likely < 50 Years: > 450 pg/mL 50-75 Years: > 900 pg/mL >75 Years: > 1800 pg/mL Performed By: #### L 100.0100, L500.4050 #### [facility] Laboratory [address] [place], [address] L509.7001on 06-02-2024 Procalcitonin 0.20 ng/mL High <=0.[address] [facility] Comment on above: Result Comment: Inte rpretation: <0.10-0.25 ng/mL: Antibiotic therapy discouraged. Bacterial infection unlikely. 0.25-0.50 ng/mL: Antibiotic therapy encouraged. Bacterial infection possible. >0.50 ng/mL: Antibiotic therapy strongly encouraged. Suggestive of presence of bacterial infection. PCT should always be interpreted in the clinical context of the patient. Therefore, clinicians should use the PCT results in conjunction with other laboratory findings and clinical signs of the patient. Performed By: #### L 500.2500, L100.0100 #### [facility] Laboratory [address] [facility] [place], [place], [id number] Laboratory - Chemistry and C hemistry - challengeOrdered By: Alyce Morel on 06-02-2024 Natriuretic peptide B (Bld) [Mass/Vol] 168 pg/mL <[address] [facility] Comment on above: Heart Failure Unlike ly: < 300 pg/mLHeart Failure Likely< 50 Years: > 450 pg/mL50-75 Years: > 900 pg/mL>75 Years: > 1800 pg/mL Lactic Acidon 06-02-2024 Lactate [Moles/Vol] 1.8 mmol/L Normal 0.0-2.0 [facility] Comment on above: Order Comment: Y Performed By: #### L 503.6005 ####[facility] [id number] [place], [place], [id number] Lactate [Moles/Vol] 3.7 mmol/L Invalid Interpretation Code 0.0-2.[address] [facility] Comment on above: Order Comment: Y Result Comment: Crit ical Result(s) Called at: by:??Results read back by same. Performed By: #### L 100.0100, L500.4050 #### [facility] Laboratory [address] [place], [address] Lactic acid measurementOrder ed By: Wilbert Umanzor on 06-02-2024 Lactate [Moles/Vol] 1.8 mmol/L 0.0-2.0 [facility] Lactic acid measurementOrder ed By: Alyce Morel on 06-02-2024 Lactate [Moles/Vol] 3.7 mmol/L High 0.0-2.0 [facility] Comment on above: Critical Result(s) C alled at: by: Results read back by same. Lymphocytes Auto (Unsp spec) [#/Vol]Ordered By: Alyce Morel on 06-02-2024 Lymphocytes (Bld) [#/Vol] 1.86 10*3/uL 0.83-4.[address] [facility] Lymphocytes/100 WBC Auto (Un sp spec)Ordered By: Alyce Morel on 06-02-2024 Lymphocytes/100 WBC (Bld) 22.6 % 19-[address] [facility] M100.678on 06-02-2024 M100.678 Pending SARS-CoV-2 (COVID 19) Negative INFLUENZA A Negative INFLUENZA B Negative RSV PCR Negative Normal [facility] Comment on above: Performed By: #### L 500.2500, L100.0100 #### [facility] Laboratory [address] [place], [address] MCV (mean corpuscular volume ) determinationOrdered By: Alyce Morel on 06-02-2024 MCV (RBC) [Entitic vol] 90.7 fL 81-[address] [facility] Mean corpuscular hemoglobin (MCH) determinationOrdered By: Alyce Morel on 06-02-2024 MCH (RBC) [Entitic mass] 29.5 pg 27.0-32.[address] [facility] Mean corpuscular hemoglobin concentration (MCHC) determinationOrdered By: [facility] Morel on 06-02-2024 MCHC (RBC) [Mass/Vol] 32.6 g/dL 32-36 [facility] Mean platelet volume determi nationOrdered By: Alyce Morel on 06-02-2024 Platelet mean volume (Bld) [Entitic vol] 10.3 fL 6.2-12.[address] [facility] Monocyte percentageOrdered B y: Alyce Morel on 06-02-2024 Monocytes/100 WBC (Bld) 6.7 % 0-[address] [facility] Neutrophil percentageOrdered By: [place] Maria Teresa on 06-02-2024 Neutrophils/100 WBC (Bld) 66.9 % 47-[address] [facility] No Panel InformationOrdered By: Wilbert Umanzor on 06-02-2024 Procalcitonin 0.20 ng/mL High <0.[address] [facility] Comment on above: Interpretation:<0.10 -0.25 ng/mL: Antibiotic therapy discouraged. Bacterial infection unlikely.0.25-0.50 ng/mL: Antibiotic therapy encouraged. Bacterial infection possible.>0.50 ng/mL: Antibiotic therapy strongly encouraged. Suggestive of presence of bacterial infection.PCT should always be interpreted in the clinical context of the patient. Therefore, clinicians should use the PCT results in conjunction with other laboratory findings and clinical signs of the patient. No Panel InformationOrdered By: Alyce Morel on 06-02-2024 Troponin T High Sensitivity 9 ng/L <[address] [facility] Nucleated red blood cell per centageOrdered By: Alyce Morel on 06-02-2024 Nucleated RBC/100 WBC (Bld) [Ratio] 0 % 0-[address] [facility] Platelet countOrdered By: Alycia Morel on 06-02-2024 Platelets (Bld) [#/Vol] 271 10*3/uL 150-[address] [facility] Potassium (Unsp spec) [Mass/ Vol]Ordered By: Alyce Morel on 06-02-2024 Potassium [Moles/Vol] 3.6 mmol/L 3.3-5.1 [facility] RBC Auto (Bld) [#/Vol]Ordere d By: Alyce Morel on 06-02-2024 RBC (Bld) [#/Vol] 4.74 10*6/uL 4.2-5.4 [facility] RESPIRATORY PANEL MOLECULARo n 06-02-2024 RP PANEL ADENOVIRUS Not Detected INFLUENZA A Not Detected INFLUENZA A (SUBTYPE H1) Not Detected INFLUENZA A (SUBTYPE H3) Not Detected INFLUENZA B Not Detected HUMAN METAPHNEUMO Not Detected PARAINFLUENZA 1 Not Detected PARAINFLUENZA 2 Not Detected PARAINFLUENZA 3 Not Detected PARAINFLUENZA 4 Not Detected RHINOVIRUS Not Detected RSV A Not Detected RSV B Not Detected Normal [facility] Comment on above: Performed By: #### M [id number] ####[facility] [id number] [place], [address] Respiratory pathogens DNA an d RNA panel STEPHANIE+probe (Resp)Ordered By: Wilbert Umanzor on 06-02-2024 Respiratory Panel (PCR) [facility] Serum creatinine measurement (mass/volume)Ordered By: Alyce Morel on 06-02-2024 Creatinine [Mass/Vol] 0.69 mg/dL Low 0.70-1.20 [facility] Serum glucose measurement (m ass/volume)Ordered By: Marthaus Morel on 06-02-2024 Glucose [Mass/Vol] 175 mg/dL High 70-99 [facility] Serum or plasma calcium betzaida urement (mass/volume)Ordered By: Alyce Lopezrobina on 06-02-2024 Calcium [Mass/Vol] 8.8 mg/dL 7.6-11.0 [facility] Serum or plasma urea nitroge n measurement (mass/volume)Ordered By: Alyce Maria Teresa on 06-02-2024 Urea nitrogen [Mass/Vol] 14 mg/dL 4-[address] [facility] Sodium levelOrdered By: Marthashilo lili Maria Teresa on 06-02-2024 Sodium [Moles/Vol] 141 mmol/L 133-145 [facility] Troponin T.cardiac High sens itivity method [Mass/Vol]Ordered By: Marthaus Morel on 06-02-2024 Troponin T High Sensitivity 2 Hour 23 ng/L High <[address] [facility] White blood cell (WBC) count Ordered By: Alyce Morel on 06-02-2024 WBC (Bld) [#/Vol] 8.2 10*3/uL 4.4-11.0 [facility] 29on 05-31-2024 29 Addended by: MIGUEL AMEZCUA on: 08/05/2024 10:49 AM Modules accepted: Orders Normal [facility] Progress Noteon 05-31-2024 Progress Note Continue CPAP Normal [facility] Progress Note TTE 04/2024 with 2+ M R. No current heart failure symptoms and appears euvolemic. -Continue Lasix 40 mg p.o. daily -Recheck echo 2 years Normal [facility] Progress Note 1+ AR per echocardio gram April 2024. Recommend good heart rate and blood pressure control. -Recheck echo 2 years -Continue metoprolol Normal [facility] Progress Note HFpEF, Stage C, Clas s II, EF 60% per TTE 04/2024. No current heart failure symptoms and euvolemic on physical exam. -Continue metoprolol 100 mg po BID -Continue Lasix 40 mg p.o. daily Heart failure self-care reviewed Normal [facility] Progress Note Normal [facility] Progress Note Permanent, nonvalvul ar. [id number] equals 4. Remains rate controlled today. Digoxin discontinued April 2024 due to dig toxicity. -Increase metoprolol 100 mg p.o. twice daily -Continue Eliquis 5 mg p.o. twice daily Normal [facility] Urgent Care Visit Reporton 0 05-25-2024 Urgent Care Visit Report [facility] [address], [address] [place] [address] OFFICE VISIT Date of Service: 05/25/24 MR#: [id number] Acct: [id number] Name: ALTA BAKER Rep #: [id number] : 1950 Provider: LOVELY Joshi Age/Sex: 74/F Location: [facility] Status: Signed Intake Vital Signs 12/02/23 13:40 05/25/24 15:32 Height 4 ft 11 in 4 ft 11 in Weight: 215 lb 8 oz BMI 43.5 BP 122/76 H Position Sitting Pulse 139 H Temp 98.2 F Temp Source Oral Pulse Oximetry (%) 92 Oxygen Delivery Method room air Intake Visit Reasons: Shortness of breath Chief Complaint: shortness of breath Accompanied by: Other Family Allergies bee venom protein (honey bee) (bee sting) Allergy (Verified 05/25/24 15:20) Other Opioids - Morphine Analogues (narcotics) Allergy (Verified 05/25/24 15:20) Other Tetanus Vaccines and Toxoid (Tetanus Vaccines Toxoid) Allergy (Verified 05/25/24 15:20) Unknown Medications ???Medication ???Instructions ???Recorded ???Confirmed ???Type furosemide 40 mg tablet 40 mg PO BID diuretic 10/27/13 History digoxin 125 mcg (0.125 mg) tablet 125 mcg PO DAILY heart rate 01/2301/18/22 History (Digox) lisinopril 10 mg tablet 20 mg PO DAILY blood pressure 01/1312/01/23 History metoprolol tartrate 50 mg tablet 100 mg PO BID blood pressure 01/2305/25/24 History potassium chloride 20 mEq 20 meq PO DAILY supplement 6 12/01/23 History tablet,extended release(part/cryst) (Klor-Con M) atorvastatin 10 mg tablet 10 mg PO QHS cholesterol 07/14/16 05/25/24 History apixaban 5 mg tablet (Eliquis) 5 mg PO BID blood thinner 01/18/22 05/25/24 History albuterol sulfate 0.63 mg/3 mL 0.63 mg (3 mL) inhalation Q4H PRN 01/22/22 12/01/23 Rx solution for nebulization shortness of breath or wheezing #75 mL guaifenesin 1,200 mg tablet, 1,200 mg PO BID cough #10 tabs 01/0312/03/23 Rx extended release 12 hr (Mucus Relief ER) amoxicillin 875 mg-potassium 1 tab PO BID #14 tabs 12/03/23 Rx clavulanate 125 mg tablet dexamethasone 6 mg tablet 6 mg PO DAILY #7 tabs 12/03/23 Rx fluconazole 200 mg tablet 200 mg PO DAILY #7 tabs 12/03/23 Rx amoxicillin 875 mg-potassium 1 tab PO Q12H 10 days #20 tabs 05/25/24 Rx clavulanate 125 mg tablet folic acid 1 mg tablet 1 mg PO QDAY 05/25/24 05/25/24 His tory ipratropium 0.5 mg-albuterol 3 mg 3 ml inhalation Q6H 5 days #90 mL 05/25/24 05/25/24 Rx (2.5 mg base)/3 mL nebulization soln mometasone-formoterol HFA 100 inhalation 05/25/24 05/25/24 Histo ry mcg-5 mcg/actuation aerosol inhaler (Dulera) sertraline 50 mg tablet 50 mg PO QHS mental health 5 05/25/24 History tiotropium bromide 2.5 inhalation DAILY 05/25/24 05/25/24 History mcg/actuation mist for inhalation (Spiriva Respimat) Have you fallen in the past year?: No Nurse's Note: Patient has SOB and upper airway congestion that has been going on for 2 days. [facility] Medical History (Updated 05/26/24 @ 06:16 by Scott MURRY, PA) Non-smoker CPAP (continuous positive airway pressure) dependence On home oxygen therapy Atrial fibrillation Hypertension Asthma Depression Atrial fibrillation with RVR Anticoagulant long-term use Acute respiratory failure with hypoxia Obstructive sleep apnea Congestive heart failure (CHF) Dyslipidemia HTN (hypertension) Paroxysmal atrial fibrillation Morbid obesity with body mass index of 50.0-59.9 in adult Surgical History H/O oophorectomy History of appendectomy Family History Grandmother Breast cancer Father CVA (cerebral vascular accident) Social History household members: children and none housing: house number of children: 2 current occupational status: retired pets and animals: Yes (2 dogs/2 cats) Smoking Status: Never smoker alcohol intake: never substance use type: does not use HPI HPI Chief Complaint: shortness of breath Details: ALTA BAKER, is a 74 F who presents to the office today for complaint of shortness of breath, sinus congestion and pressure for the past several days. Patient denies fever, chills or sweats. No cough, chest pain or difficulty breathing. No nausea, vomiting or diarrhea. Patient does have a longstanding history of COPD as well as A-fib. Patient states that she was recently taken off of her digoxin secondary to digoxin toxicity and has had more difficulty with her A-fib since. She denies any syncopal or near syncopal episodes. No other associated symptoms or alleviating/aggravating factors. ROS Const Constitutional: No other (6 syste (more content not included)... Normal [facility] Progress Noteon 05-16-2024 Progress Note Normal [facility] Progress Noteon 05-11-2024 Progress Note Normal [facility] 36on 05-09-2024 36 Called and spoke wit h daughter, Cysto schedule for 06/27 at 2:20pm in [place] office with Dr. Jimenez. Daughter states Pt able to walk and transfer herself. Uses walker. Normal [facility] 36 Needs cysto in office Normal [facility] 36 Pt canceled the cyst o appt for 04/18. Has not been seen for office visit with us. Should I reschedule her for cysto or should I schedule her an office visit for microhematuria and adrenal lesions? Normal [facility] [id number] 05-08-2024 [id number] Normal [facility] 36on 05-08-2024 36 Currently admitted. Normal [facility] BASIC METABOLIC PANELon - Anion gap [Moles/Vol] 5 mmol/L Normal 3-13 [facility] Comment on above: Performed By: #### L AB103, LAB15, [id number] ####Dispatcher Service Chief: VIVIAN PANTOJA ([phone])[facility])[address] [place] [address] Calcium [Mass/Vol] 9.2 mg/dL Normal 8.8-10.0 [facility] Comment on above: Performed By: #### L AB103, LAB15, [id number] ####Dispatcher Service Chief: VIVIAN PANTOJA ([phone])[facility] ([facility])[address] [place] [address] Chloride [Moles/Vol] 106 mmol/L Normal 98-107 [facility] Comment on above: Performed By: #### L AB103, LAB15, [id number] ####Dispatcher Service Chief: VIVIAN PANTOJA ([phone])[facility] ([facility])[address] [place] [address] CO2 [Moles/Vol] 32 mmol/L High 23-31 [facility] Comment on above: Performed By: #### L AB103, LAB15, [id number] ####Dispatcher Service Chief: VIVIAN PANTOJA ([phone])[facility])[address] [place] [address] Creatinine [Mass/Vol] 0.62 mg/dL Normal 0.57-1.11 [facility] Comment on above: Performed By: #### L AB103, LAB15, [id number] ####Dispatcher Service Chief: VIVIAN PANTOJA ([phone])[facility])[address] [place] [address] GLOMERULAR FILTRATION RATE ML/MIN/1.73 SQ M.PREDICTED >90.0 Normal >60.0 [facility] Comment on above: Result Comment: Calc ulation based on the Chronic Kidney Disease Epidemiology Collaboration (CKD-EPI) equation refit without adjustment for race Performed By: #### L AB103, LAB15, [id number] ####Dispatcher Service Chief: VIVIAN PANTOJA ([phone])[facility])[address] [place] [address] Glucose [Mass/Vol] 94 mg/dL Normal 82-115 [facility] Comment on above: Performed By: #### L AB103, LAB15, [id number] ####Dispatcher Service Chief: VIVIAN PANTOJA ([id number])[facility])[address] [place] [address] Potassium [Moles/Vol] 4.2 mmol/L Normal 3.5-5.1 [facility] Comment on above: Result Comment: [facility] potassium values may be up to 0.5 mmol/L lower than serum values. Performed By: #### Manpreet AB103, LAB15, [id number] ####Dispatcher Service Chief: VIVIAN PANTOJA ([id number])[facility])[address] [place] [address] Sodium [Moles/Vol] 143 mmol/L Normal 136-145 [facility] Comment on above: Performed By: #### Manpreet MCCALL103, LAB15, [id number] ####Dispatcher Service Chief: VIVIAN PANTOJA ([phone])[facility])[address] [place] [address] Urea nitrogen [Mass/Vol] 16 mg/dL Normal 9-23 [facility] Comment on above: Performed By: #### Manpreet AB103, LAB15, [id number] ####Dispatcher Service Chief: VIVIAN PANTOJA ([phone])[facility])[address] [place] [address] Basic metabolic 1998 panelon 05-08-2024 Anion gap [Moles/Vol] 5 mmol/L 3 - 13 mmol/L [facility] Calcium [Mass/Vol] 9.2 mg/dL 8.8 - 10. 0 mg/dL [facility] Chloride [Moles/Vol] 106 mmol/L 98 - 10 7 mmol/L [facility] CO2 [Moles/Vol] 32 mmol/L High 23 - 31 mmol/L [facility] Creatinine [Mass/Vol] 0.62 mg/dL 0.57 - 1.11 mg/dL [facility] GFR/1.73 sq M.predicted (S/P/Bld) [Vol rate/Area] - PINF [facility] Glucose [Mass/Vol] 94 mg/dL 82 - 115 mg/dL [facility] Potassium [Moles/Vol] 4.2 mmol/L 3.5 - 5.1 mmol/L [facility] Sodium [Moles/Vol] 143 mmol/L 136 - 145 mmol/L [facility] Urea nitrogen [Mass/Vol] 16 mg/dL 9 - 23 mg/dL [facility] CBC (HEMOGRAM)on 05-08-2024 Erythrocyte distribution width (RBC) [Ratio] 14.9 % Normal 11.5-15.0 [facility] Comment on above: Performed By: #### L [id number] ####Dispatcher Service Chief: VIVIAN PANTOJA ([phone])[address] Hematocrit (Bld) [Volume fraction] 25.2 % Low 35.0-47.0 [facility] Comment on above: Performed By: #### L AB294 ####Dispatcher Service Chief: VIVIAN PANTOJA ([id number])[address] Hemoglobin (Bld) [Mass/Vol] 7.7 g/dL Low 11.7-16.0 [facility] Comment on above: Performed By: #### L AB294 ####Dispatcher Service Chief: VIVIAN PANTOJA ([id number])[address] IPF 14 Normal [facility] Comment on above: Performed By: #### L AB294 ####Dispatcher Service Chief: VIVIAN PANTOJA ([phone])[facility])[address] [place] [address] MCH (RBC) [Entitic mass] 27.8 pg Normal 26.0-34.0 [facility] Comment on above: Performed By: #### L AB294 ####Dispatcher Service Chief: VIVIAN PANTOJA ([id number])[facility] ([facility])[address] [place] [address] MCHC 30.6 % Normal 30.5-36.0 [facility] Comment on above: Performed By: #### L AB294 ####Dispatcher Service Chief: VIVIAN PANTOJA ([phone])[facility] ([facility])[address] [place] [address] MCV (RBC) [Entitic vol] 91.0 fL Normal 77.0-99.0 [facility] Comment on above: Performed By: #### L AB294 ####Dispatcher Service Chief: VIVIAN PANTOJA ([phone])[facility])[address] [place] [address] Platelet mean volume (Bld) [Entitic vol] 14.2 fL High 9.0-12.7 [facility] Comment on above: Performed By: #### L AB294 ####Dispatcher Service Chief: VIVIAN PANTOJA ([phone])[facility] ([facility])[address] [place] [address] [place] Platelets (Bld) [#/Vol] 66 10*3/uL Low 140-440 [facility] Comment on above: Performed By: #### L AB294 ####Dispatcher Service Chief: VIVIAN PANTOJA ([phone])[facility])[address] [place] [address] RBC (Bld) [#/Vol] 2.77 10*6/uL Low 3.80-5.20 [facility] Comment on above: Performed By: #### L AB294 ####Dispatcher Service Chief: VIVIAN PANTOJA ([phone])[facility] ([facility])[address] [place] [address] [place] WBC (Bld) [#/Vol] 14.1 10*3/uL High 3.6-10.7 [facility] Comment on above: Performed By: #### L AB294 ####Dispatcher Service Chief: VIVIAN PANTOJA ([phone])[facility])[address] [place] [address] CBC panel Auto (Bld)on 05-08 Erythrocyte distribution width (RBC) [Ratio] 14.9 % 11.5 - 15.0 % [facility] Hematocrit (Bld) [Volume fraction] 25.2 % Low 35.0 - 47.0 % [facility] Hemoglobin (Bld) [Mass/Vol] 7.7 g/dL Low 11.7 - 16.0 g/dL [facility] Interpretation and review of laboratory results Abnormal [facility] IPF 14 [facility] MCH (RBC) [Entitic mass] 27.8 pg 26.0 - 34.0 pg [facility] MCHC (RBC) [Mass/Vol] 30.6 % 30.5 - 36.0 % [facility] MCV (RBC) [Entitic vol] 91 fL 77.0 - 99.0 fL [facility] Platelet mean volume (Bld) [Entitic vol] 14.2 fL High 9.0 - 12.7 fL [facility] Platelets (Bld) [#/Vol] 66 10*3/uL Low 140 - 440 10*3/uL [facility] RBC (Bld) [#/Vol] 2.77 10*6/uL Low 3.80 - 5.2 0 10*6/uL [facility] WBC (Bld) [#/Vol] 14.1 10*3/uL High 3.6 - 10.7 10*3/uL [facility] Laboratory - Chemistry and C hemistry - challengeon 05-08-2024 Magnesium [Mass/Vol] 1.6 mg/dL 1.6 - 2 .6 mg/dL [facility] MAGNESIUMon 05-08-2024 Magnesium [Mass/Vol] 1.6 mg/dL Normal 1.6-2.6 [facility] Comment on above: Result Comment: ORDE R COMMENTS:Higher values can be expected in females during menses. Performed By: #### L AB103, LAB15, [id number] ####Dispatcher Service Chief: VIVIAN PANTOJA ([id number])[facility] [place] [address] Magnesium [Mass/Vol]on 05-08 Interpretation and review of laboratory results Normal [facility] No Panel Informationon 05-08 Interpretation and review of laboratory results Abnormal [facility] Nursing Noteon 05-08-2024 Nursing Note Medications went ove r with daughter Rhiannon. Daughter verbally expressed understanding of new meds. Patient left in her clothes and all belongings sent with patient Normal [facility] PHOSPHORUSon 05-08-2024 Phosphate [Mass/Vol] 1.8 mg/dL Low 2.3-4.7 [facility] Comment on above: Performed By: #### L AB103, LAB15, [id number] ####Dispatcher Service Chief: VIVIAN PANTOJA ([id number])[facility] ([address] Phosphate [Moles/Vol]on 04-16 Phosphate [Mass/Vol] 1.8 mg/dL Low 2.3 - 4 .7 mg/dL [facility] Progress Noteon 05-08-2024 Progress Note Normal [facility] Progress Note Normal [facility] Progress Note Normal [facility] Progress Note Normal [facility] Progress Note Normal [facility] US Heart TransthoracicOrdere d By: Iker Crandall on 05-08-2024 Ao Root Index 1.57 cm/m2 [facility] [employer] Work Phone: Aortic Root 3 cm [facility] [employer] Phone: Aortic valve Mean systole pressure gradient by US.doppler derived full Bernoulli 9 mmHg [facility] [employer] Phone: Aortic valve Orifice area by US 3.1 cm2 [facility] [employer] Phone: Aortic valve Peak systolic flow by US.doppler 1.4 m/s [facility] [employer] Work Phone: AR Max Velocity PISA 4.2 m/s [facility] [employer] Work Phone: AR PHT 324.5 ms [facility] [employer] Work Phone: Ascending Aorta 2.9 cm [facility] [employer] Work Phone: Ascending Aorta Index 1.52 cm/m2 [facility] [employer] Work Phone: AV Area by Peak Velocity 1.9 cm2 [employer] Work Phone: AV Area by VTI 2.1 cm2 [employer] Work Phone: AV Peak Gradient 14 mmHg [employer] Work Phone: AV Peak Velocity 1.9 m/s [employer] Work Phone: AV Velocity Ratio 0.63 [facility] Work Phone: AV VTI 34.5 cm [facility] Work Phone: KAROLINA/BSA Peak Velocity 1 cm2/m2 [facility] [employer] Work Phone: KAROLINA/BSA VTI 1.1 cm2/m2 [employer] Work Phone: E/E' Lateral 17.67 [facility] Work Phone: E/E' Ratio (Averaged) 18.77 [facility] [employer] Work Phone: E/E' Septal 19.88 [facility] Work Phone: Est. RA Pressure 9 mmHg [employer] Phone: Fractional Shortening 2D 25 % 28 - 44 % [employer] Phone: Interpretation and review of laboratory results Abnormal [employer] Phone: IVC Diameter 2.4 cm [employer] Work Phone: IVSd 0.9 cm 0.6 - 0.9 cm [employer] Work Phone: LA Diameter 6.6 cm [employer] Work Phone: LA Size Index 3.46 cm/m2 [employer] Phone: LA Volume 2C 94 mL Abnormal 22 - 52 mL [facility] Work Phone: LA Volume 4C 100 mL Abnormal 22 - 52 mL [facility] Work Phone: LA Volume A/L 103 mL [facility] [employer] Work Phone: LA Volume BP 100 mL Abnormal 22 - 52 mL [facility] [employer] Work Phone: LA Volume Index 2C 49 mL/m2 Abnormal 16 - 34 mL/m2 [facility] [employer] Work Phone: LA Volume Index 4C 52 mL/m2 Abnormal 16 - 34 mL/m2 [facility] [employer] Work Phone: LA Volume Index A/L 54 mL/m2 16 - 34 mL/m2 [facility] [employer] Work Phone: LA Volume Index BP 52 ml/m2 Abnormal 16 - 34 ml/m2 [facility] [employer] Work Phone: LA/AO Root Ratio 2.2 [facility] [employer] Work Phone: Left ventricular Ejection fraction by US.2D+Calculated by biplane method of disks 62 % 55 - 100 % [facility] [employer] Work Phone: LV E' Lateral Velocity 9 cm/s [facility] [employer] Work Phone: LV E' Septal Velocity 8 cm/s [facility] [employer] Work Phone: LV EDV A2C 75 mL [facility] [employer] Work Phone: LV EDV A4C 88 mL [facility] [employer] Work Phone: LV EDV BP 89 mL 56 - 104 mL [facility] [employer] Work Phone: LV EDV Index A2C 39 mL/m2 [facility] [employer] Work Phone: LV EDV Index A4C 46 mL/m2 [facility] [employer] Work Phone: [phone] LV EDV Index BP 47 mL/m2 [facility] [employer] Work Phone: LV Ejection Fraction A2C 61 % [facility] [employer] Work Phone: LV Ejection Fraction A4C 59 % [facility] [employer] Work Phone: LV ESV A2C 29 mL [facility] [employer] Work Phone: LV ESV A4C 36 mL [facility] Work Phone: LV ESV BP 34 mL 19 - 49 mL [facility] Work Phone: LV ESV Index A2C 15 mL/m2 [employer] Work Phone: LV ESV Index A4C 19 mL/m2 [employer] Work Phone: LV ESV Index BP 18 mL/m2 [facility] [employer] Work Phone: LV Mass 2D 215.7 g Abnormal 67 - 162 g [employer] Work Phone: LV Mass 2D Index 112.9 g/m2 Abnormal 43 - 95 g/m2 [facility] Work Phone: LV RWT Ratio 0.3 [facility] [employer] Work Phone: LVIDd 6 cm Abnormal 3.9 - 5.3 cm [facility] [employer] Work Phone: LVIDd Index 3.14 cm/m2 [facility] [employer] Work Phone: [phone] LVIDs 4.5 cm [facility] [employer] Work Phone: LVIDs Index 2.36 cm/m2 [facility] Work Phone: LVOT Cardiac Output 8.9 liter/minute [facility] [employer] Work Phone: LVOT Diameter 2 cm [facility] Work Phone: LVOT Mean Gradient 3 mmHg [facility] Work Phone: LVOT Peak Gradient 5 mmHg [facility] [employer] Work Phone: LVOT Peak Velocity 1.2 m/s [facility] [employer] Work Phone: [phone] LVOT Stroke Volume Index 38.8 mL/m2 [facility] Work Phone: LVOT SV 74.1 ml [facility] [employer] Work Phone: LVOT VTI 23.6 cm [facility] [employer] Work Phone: LVOT:AV VTI Index 0.68 [facility] [facility] Work Phone: LVPWd 0.9 cm 0.6 - 0.9 cm [facility] Work Phone: MV Area by PHT 3.4 cm2 [employer] [facility] Work Phone: MV Area by VTI 2.2 cm2 [facility] Work Phone: MV E Velocity 1.59 m/s [facility] Work Phone: MV E Wave Deceleration Time 136.3 ms [facility] Work Phone: MV Max Velocity 1.9 m/s [facility] Work Phone: MV Mean Gradient 4 mmHg [facility] Work Phone: MV Mean Velocity 0.9 m/s [facility] Work Phone: MV Peak Gradient 15 mmHg [facility] Work Phone: MV PHT 64.5 ms [facility] Work Phone: MV VTI 33 cm [facility] Work Phone: MV:LVOT VTI Index 1.4 [facility] Work Phone: RA Area 4C 74.6 mL [facility] Work Phone: RA Area 4C 72.1 mL [facility] Work Phone: RV Basal Dimension 3.9 cm [facility] Work Phone: RV Free Wall Peak S' 10 cm/s [facility] Work Phone: RV Mid Dimension 3.4 cm [facility] Work Phone: RVSP 70 mmHg [facility] Work Phone: TAPSE 1.6 cm Abnormal 1.7 cm [facility] Work Phone: TR Max Velocity 3.89 m/s [facility] Work Phone: TR Peak Gradient 60 [facility]: [facility] Work Phone: US Heart Transthoracicon CV CPACS 30on 05-07-2024 30 Normal [facility] 30 Normal [facility] BASIC METABOLIC PANELon - Anion gap [Moles/Vol] 4 mmol/L Normal 3-13 [facility] Comment on above: Performed By: #### L AB15, [id number], [id number] ####Dispatcher Service Chief: VIVIAN PANTOJA ([phone])[facility])[address] [place] [address] Calcium [Mass/Vol] 9.2 mg/dL Normal 8.8-10.0 [facility] Comment on above: Performed By: #### L AB15, [id number], [id number] ####Dispatcher Service Chief: VIVIAN PANTOJA ([phone])[facility] ([facility])[address] [place] [address] [place] Chloride [Moles/Vol] 108 mmol/L High 98-107 [facility] Comment on above: Performed By: #### L AB15, [id number], [id number] ####Dispatcher Service Chief: VIVIAN PANTOJA ([phone])[facility] ([facility])[address] [place] [address] [place] CO2 [Moles/Vol] 30 mmol/L Normal -31 [facility] Comment on above: Performed By: #### L AB15, [id number], [id number] ####Dispatcher Service Chief: VIVIAN PANTOJA ([phone])[facility] ([facility])[address] [place] [address] Creatinine [Mass/Vol] 0.65 mg/dL Normal 0.57-1.11 [facility] Comment on above: Performed By: #### L AB15, [id number], [id number] ####Dispatcher Service Chief: VIVIAN PANTOJA ([phone])[facility])[address] [place] [address] [place] GLOMERULAR FILTRATION RATE ML/MIN/1.73 SQ M.PREDICTED >90.0 Normal >60.0 [facility] Comment on above: Result Comment: Calc ulation based on the Chronic Kidney Disease Epidemiology Collaboration (CKD-EPI) equation refit without adjustment for race Performed By: #### L AB15, [id number], [id number] ####Dispatcher Service Chief: VIVIAN PANTOJA ([phone])[facility])[address] [place] [address] Glucose [Mass/Vol] 113 mg/dL Normal 82-115 [facility] Comment on above: Performed By: #### L AB15, [id number], ATW750 ####Dispatcher Service Chief: VIVIAN PANTOJA ([id number])[address] Potassium [Moles/Vol] 5.1 mmol/L Normal 3.5-5.1 [facility] Comment on above: Result Comment: [facility] potassium values may be up to 0.5 mmol/L lower than serum values. Performed By: #### L AB15, [id number], KXT157 ####Dispatcher Service Chief: VIVIAN PANTOJA ([phone])[address] Sodium [Moles/Vol] 142 mmol/L Normal 136-145 [facility] Comment on above: Performed By: #### L AB15, [id number], HXQ299 ####Dispatcher Service Chief: VIVIAN PANTOJA ([phone])[address] Urea nitrogen [Mass/Vol] 19 mg/dL Normal 9-23 [facility] Comment on above: Performed By: #### L AB15, [id number], [id number] ####Dispatcher Service Chief: VIVIAN PANTOJA ([phone])[address] Bacteria identified Aer cx N om (Lower resp)Ordered By: Liv Brady on 05-07-2024 Gram Stain Result Few Epithelial cells per low power field [facility] Gram Stain Result Many Polymorphonucle ar leukocytes per low power field [facility] Gram Stain Result No organisms seen [facility] Interpretation and review of laboratory results Abnormal [facility] PBP2A Negative [facility] Basic metabolic 1998 panelon 05-07-2024 Anion gap [Moles/Vol] 4 mmol/L 3 - 13 mmol/L [facility] Calcium [Mass/Vol] 9.2 mg/dL 8.8 - 10. 0 mg/dL [facility] Chloride [Moles/Vol] 108 mmol/L High 98 - 10 7 mmol/L [facility] CO2 [Moles/Vol] 30 mmol/L 23 - 31 mmol/L [facility] Creatinine [Mass/Vol] 0.65 mg/dL 0.57 - 1.11 mg/dL [facility] GFR/1.73 sq M.predicted (S/P/Bld) [Vol rate/Area] - PINF [facility] Glucose [Mass/Vol] 113 mg/dL 82 - 115 mg/dL [facility] Interpretation and review of laboratory results Abnormal [facility] Potassium [Moles/Vol] 5.1 mmol/L 3.5 - 5.1 mmol/L [facility] Sodium [Moles/Vol] 142 mmol/L 136 - 145 mmol/L [facility] Urea nitrogen [Mass/Vol] 19 mg/dL 9 - 23 mg/dL [facility] CBC (HEMOGRAM)on 05-07-2024 HEMATOCRIT Normal 35.0-47.0 [facility] Comment on above: Result Comment: Sosa ann previously reported results.Corrected result: Previously reported as 29.0 % (reference range: 35.0-47.0 %) on 05/07/2024 at 0521 EST. Performed By: #### L [id number] ####Dispatcher Service Chief: VIVIAN PANTOJA ([phone])[address] HEMOGLOBIN Normal 11.7-16.0 [facility] Comment on above: Result Comment: Disr egrupert previously reported results.Corrected result: Previously reported as 8.4 g/dL (reference range: 11.7-16.0 g/dL) on 05/07/2024 at 0521 EST. Performed By: #### L [id number] ####Dispatcher Service Chief: VIVIAN PANTOJA ([phone])[facility] ([facility])[address] [place] [address] [place] IPF Normal [facility] Comment on above: Result Comment: Jenny ected result: Previously reported as 15 (reference range: ) on 05/07/2024 at 0521 EST. Performed By: #### L AB294 ####Dispatcher Service Chief: VIVIAN PANTOJA ([phone])[facility])[address] [place] [address] MCH Normal 26.0-34.0 [facility] Comment on above: Result Comment: Disr egard previously reported results.Corrected result: Previously reported as 28.1 pg (reference range: 26.0-34.0 pg) on 05/07/2024 at 0521 EST. Performed By: #### L AB294 ####Dispatcher Service Chief: VIVIAN PANTOJA ([phone])[facility])[address] [place] [address] MCHC Normal 30.5-36.0 [facility] Comment on above: Result Comment: Disr egard previously reported results.Corrected result: Previously reported as 29.0 % (reference range: 30.5-36.0 %) on 05/07/2024 at 0521 EST. Performed By: #### L AB294 ####Dispatcher Service Chief: VIVIAN PANTOJA ([phone])[facility])[address] [place] [address] MCV Normal 77.0-99.0 [facility] Comment on above: Result Comment: Disr egard previously reported results.Corrected result: Previously reported as 97.0 fL (reference range: 77.0-99.0 fL) on 05/07/2024 at 0521 EST. Performed By: #### L AB294 ####Dispatcher Service Chief: VIVIAN PANTOJA ([phone])[facility])[address] [place] [address] MPV Normal 9.0-12.7 [facility] Comment on above: Result Comment: Jenny ected result: Previously reported as 14.1 fL (reference range: 9.0-12.7 fL) on 05/07/2024 at 05 EST. Performed By: #### L AB294 ####Dispatcher Service Chief: VIVIAN PANTOJA ([phone])[address] PLATELET COUNT Normal 140-440 [facility] Comment on above: Result Comment: Disr egard previously reported results.Corrected result: Previously reported as 67 10*3/uL (reference range: 140-440 10*3/uL) on 05/07/2024 at 0521 EST. Performed By: #### L [id number] ####Dispatcher Service Chief: VIVIAN PANTOJA ([phone])[address] RBC Normal 3.80-5.20 [facility] Comment on above: Result Comment: Disr egard previously reported results.Corrected result: Previously reported as 2.99 10*6/uL (reference range: 3.80-5.20 10*6/uL) on 05/07/2024 at [facility] [place] EST. Performed By: #### L AB294 ####Dispatcher Service Chief: VIVIAN PATNOJA ([phone])[address] RDW Normal 11.5-15.0 [facility] Comment on above: Result Comment: Disr egard previously reported results.Corrected result: Previously reported as 14.7 % (reference range: 11.5-15.0 %) on 05/07/2024 at [facility] [place] EST. Performed By: #### L [id number] ####Dispatcher Service Chief: VIVIAN PANTOJA ([phone])[facility])[address] [place] [address] WBC Normal [facility] Comment on above: Result Comment: Disr egard previously reported results. Performed By: #### L [id number] ####Dispatcher Service Chief: VIVIAN PANTOJA ([phone])[facility])[address] [place] [address] CBC W Auto Differential pane l (Bld)on 05-07-2024 Basophils (Bld) [#/Vol] 0 10*3/uL 0.0 - 0.2 10*3/uL [facility] Basophils/100 WBC (Bld) 0.3 % 0.0 - 2.0 % [facility] Eosinophils (Bld) [#/Vol] 0 10*3/uL 0.0 - 0.5 10*3/uL [facility] Eosinophils/100 WBC (Bld) 0 % 0.0 - 6.0 % [facility] Erythrocyte distribution width (RBC) [Ratio] 15.1 % High 11.5 - 15.0 % [facility] Hematocrit (Bld) [Volume fraction] 28.9 % Low 35.0 - 47.0 % [facility] Hemoglobin (Bld) [Mass/Vol] 8.7 g/dL Low 11.7 - 16.0 g/dL [facility] Immature granulocytes (Bld) [#/Vol] 0.4 10*3/uL High NINF - 0.1 10*3/uL [facility] Immature granulocytes/100 WBC (Bld) 3.5 % High 0.0 - 2.0 % [facility] Interpretation and review of laboratory results Abnormal [facility] IPF 15 [facility] Lymphocytes (Bld) [#/Vol] 1.1 10*3/uL 1.0 - 4.3 10*3/uL [facility] Lymphocytes/100 WBC (Bld) 10 % Low 15.0 - 45.0 % [facility] MCH (RBC) [Entitic mass] 27.9 pg 26.0 - 34.0 pg [facility] MCHC (RBC) [Mass/Vol] 30.1 % Low 30.5 - 36.0 % [facility] MCV (RBC) [Entitic vol] 92.6 fL 77.0 - 99.0 fL [facility] Monocytes (Bld) [#/Vol] 2 10*3/uL High 0.0 - 0.9 10*3/uL [facility] Monocytes/100 WBC (Bld) 17.3 % High 5.0 - 13.0 % [facility] Neutrophils (Bld) [#/Vol] 7.8 10*3/uL High 1.8 - 7.5 10*3/uL [facility] Neutrophils/100 WBC (Bld) 68.9 % 38.0 - 82.0 % [facility] Nucleated RBC/100 WBC (Bld) [Ratio] 0 % [facility] Platelet mean volume (Bld) [Entitic vol] 14.2 fL High 9.0 - 12.7 fL [facility] Platelets (Bld) [#/Vol] 70 10*3/uL Low 140 - 440 10*3/uL [facility] RBC (Bld) [#/Vol] 3.12 10*6/uL Low 3.80 - 5.2 0 10*6/uL [facility] WBC (Bld) [#/Vol] 11.4 10*3/uL High 3.6 - 10.7 10*3/uL [facility] CBC WITH AUTO DIFFERENTIALon 05-07-2024 Basophils (Bld) [#/Vol] 0.0 10*3/uL Normal 0.0-0.2 [facility] Comment on above: Performed By: #### L [id number] ####Dispatcher Service Chief: VIVIAN PANTOJA ([phone])[facility])[address] [place] [address] Basophils/100 WBC (Bld) 0.3 % Normal 0.0-2.0 [facility] Comment on above: Performed By: #### L [id number] ####Dispatcher Service Chief: VIVIAN PANTOJA ([phone])[facility])[address] [place] [address] Eosinophils (Bld) [#/Vol] 0.0 10*3/uL Normal 0.0-0.5 [facility] Comment on above: Performed By: #### L [id number] ####Dispatcher Service Chief: VIVIAN PANTOJA ([phone])[facility])[address] [place] [address] Eosinophils/100 WBC (Bld) 0.0 % Normal 0.0-6.0 [facility] Comment on above: Performed By: #### L [id number] ####Dispatcher Service Chief: VIVIAN PANTOJA ([phone])[facility])[address] [place] [address] Erythrocyte distribution width (RBC) [Ratio] 15.1 % High 11.5-15.0 [facility] Comment on above: Performed By: #### L [id number] ####Dispatcher Service Chief: VIVIAN PANTOJA ([id number])[address] Hematocrit (Bld) [Volume fraction] 28.9 % Low 35.0-47.0 [facility] Comment on above: Performed By: #### L [id number] ####Dispatcher Service Chief: VIVIAN PANTOJA ([phone])[facility])[address] [place] [address] Hemoglobin (Bld) [Mass/Vol] 8.7 g/dL Low 11.7-16.0 [facility] Comment on above: Performed By: #### L [id number] ####Dispatcher Service Chief: VIVIAN PANTOJA ([phone])[address] IMMATURE GRANS % 3.5 % High 0.0-2.0 [facility] Comment on above: Performed By: #### L [id number] ####Dispatcher Service Chief: VIVIAN PANTOJA ([id number])[address] IMMATURE GRANS ABSOLUTE 0.4 10*3/uL High <0.1 [facility] Comment on above: Performed By: #### L [id number] ####Dispatcher Service Chief: VIVIAN PANTOJA ([id number])[address] IPF 15 Normal [facility] Comment on above: Performed By: #### L [id number] ####Dispatcher Service Chief: VIVIAN PANTOJA ([id number])[facility])[address] [place] [address] Lymphocytes (Bld) [#/Vol] 1.1 10*3/uL Normal 1.0-4.3 [facility] Comment on above: Performed By: #### L [id number] ####Dispatcher Service Chief: VIVIAN PANTOJA ([phone])[facility] ([facility])[address] [place] [address] Lymphocytes/100 WBC (Bld) 10.0 % Low 15.0-45.0 [facility] Comment on above: Performed By: #### L [id number] ####Dispatcher Service Chief: VIVIAN PANTOJA ([phone])[facility])[address] [place] [address] MCH (RBC) [Entitic mass] 27.9 pg Normal 26.0-34.0 [facility] Comment on above: Performed By: #### L [id number] ####Dispatcher Service Chief: VIVIAN PANTOJA ([phone])[facility])[address] [place] [address] MCHC 30.1 % Low 30.5-36.0 [facility] Comment on above: Performed By: #### L [id number] ####Dispatcher Service Chief: VIVIAN PANTOJA ([phone])[facility])[address] [place] [address] MCV (RBC) [Entitic vol] 92.6 fL Normal 77.0-99.0 [facility] Comment on above: Performed By: #### L [id number] ####Dispatcher Service Chief: VIVIAN PANTOAJ ([phone])[facility])[address] [place] [address] Monocytes (Bld) [#/Vol] 2.0 10*3/uL High 0.0-0.9 [facility] Comment on above: Performed By: #### L [id number] ####Dispatcher Service Chief: VIVIAN PANTOJA ([phone])[facility])[address] [place] [address] Monocytes/100 WBC (Bld) 17.3 % High 5.0-13.0 [facility] Comment on above: Performed By: #### L [id number] ####Dispatcher Service Chief: VIVIAN PANTOJA ([phone])[facility])[address] [place] [address] NEUTROPHILS ABSOLUTE 7.8 10*3/uL High 1.8-7.5 [facility] Comment on above: Performed By: #### L [id number] ####Dispatcher Service Chief: VIVIAN PANTOJA ([phone])[facility])[address] [place] [address] Neutrophils/100 WBC (Bld) 68.9 % Normal 38.0-82.0 [facility] Comment on above: Performed By: #### L [id number] ####Dispatcher Service Chief: VIVIAN PANTOJA ([phone])[facility])[address] [place] [address] NRBC 0.0 /100 WBCs Normal 0.0-2.0 [facility] Comment on above: Performed By: #### L [id number] ####Dispatcher Service Chief: VIVIAN PANTOJA ([phone])[facility])[address] [place] [address] Platelet mean volume (Bld) [Entitic vol] 14.2 fL High 9.0-12.7 [facility] Comment on above: Performed By: #### L [id number] ####Dispatcher Service Chief: VIVIAN PANTOJA ([phone])[facility] ([facility])[address] [place] [address] Platelets (Bld) [#/Vol] 70 10*3/uL Low 140-440 [facility] Comment on above: Performed By: #### L [id number] ####Dispatcher Service Chief: VIVIAN PANTOJA ([id number])[facility])[address] [place] [address] RBC (Bld) [#/Vol] 3.12 10*6/uL Low 3.80-5.20 [facility] Comment on above: Performed By: #### L [id number] ####Dispatcher Service Chief: VIVIAN PANTOJA ([phone])[facility])[address] [place] [address] WBC (Bld) [#/Vol] 11.4 10*3/uL High 3.6-10.7 [facility] Comment on above: Performed By: #### L [id number] ####Dispatcher Service Chief: VIVIAN PANTOJA ([id number])[facility] ([facility])[address] [place] [address] CBC panel Auto (Bld)on 05-07 Erythrocyte distribution width (RBC) [Ratio] [facility] Hematocrit (Bld) [Volume fraction] [facility] Hemoglobin (Bld) [Mass/Vol] [facility] IPF [facility] MCH (RBC) [Entitic mass] [facility] MCHC (RBC) [Mass/Vol] [facility] MCV (RBC) [Entitic vol] [facility] Platelet mean volume (Bld) [Entitic vol] [facility] Platelets (Bld) [#/Vol] [facility] RBC (Bld) [#/Vol] [facility] WBC (Bld) [#/Vol] [facility] Laboratory - Chemistry and C hemistry - challengeon 05-07-2024 Magnesium [Mass/Vol] 1.8 mg/dL 1.6 - 2 .6 mg/dL [facility] Laboratory - Microbiology an d Antimicrobial susceptibilityOrdered By: Liv Brady on 05-07-2024 Bacteria identified Aer cx Nom (Lower resp) Few respiratory mei present. [facility] Bacteria identified Aer cx Nom (Lower resp) Rare Staphylococcus aureus Abnormal [facility] MAGNESIUMon 05-07-2024 Magnesium [Mass/Vol] 1.8 mg/dL Normal 1.6-2.6 [facility] Comment on above: Result Comment: LEOBARDO Gill COMMENTS:Higher values can be expected in females during menses. Performed By: #### L AB15, [id number], [id number] ####Dispatcher Service Chief: VIVIAN PANTOJA ([phone])[facility] ([facility])[address] [place] [address] Magnesium [Mass/Vol]on 05-07 [facility] No Panel Informationon 05-07 [facility] Interpretation and review of laboratory results Normal [facility] PHOSPHORUSon 05-07-2024 Phosphate [Mass/Vol] 2.6 mg/dL Normal 2.3-4.7 [facility] Comment on above: Performed By: #### L AB15, [id number], [id number] ####Dispatcher Service Chief: VIVIAN PANTOJA ([phone])[facility] [place] [address] [place] Phosphate [Moles/Vol]on 04-16 Phosphate [Mass/Vol] 2.6 mg/dL 2.3 - 4 .7 mg/dL [facility] Progress Noteon 05-07-2024 Progress Note Normal [facility] Progress Note Normal [facility] BASIC METABOLIC PANELon 04-16 Anion gap [Moles/Vol] 5 mmol/L Normal 3-13 [facility] Comment on above: Performed By: #### L AB15, [id number], [id number] ####Dispatcher Service Chief: VIVIAN PANTOJA ([id number])[facility] ([facility])[address] [place] [address] Calcium [Mass/Vol] 8.9 mg/dL Normal 8.8-10.0 [facility] Comment on above: Performed By: #### L AB15, [id number], [id number] ####Dispatcher Service Chief: VIVIAN PANTOJA ([phone])[facility] ([facility])[address] [place] [address] [place] Chloride [Moles/Vol] 109 mmol/L High 98-107 [facility] Comment on above: Performed By: #### L AB15, [id number], [id number] ####Dispatcher Service Chief: VIVIAN PANTOJA ([id number])[facility] ([facility])[address] [place] [address] [place] CO2 [Moles/Vol] 30 mmol/L Normal 23-31 [facility] Comment on above: Performed By: #### L AB15, [id number], CYM211 ####Dispatcher Service Chief: VIVIAN PANTOJA ([phone])[facility] ([facility])[address] [place] [address] [place] Creatinine [Mass/Vol] 0.68 mg/dL Normal 0.57-1.11 [facility] Comment on above: Performed By: #### L AB15, [id number], [id number] ####Dispatcher Service Chief: VIVIAN PANTOJA ([phone])[facility] ([facility])[address] [place] [address] [place] GLOMERULAR FILTRATION RATE ML/MIN/1.73 SQ M.PREDICTED >90.0 Normal >60.0 [facility] Comment on above: Result Comment: Calc ulation based on the Chronic Kidney Disease Epidemiology Collaboration (CKD-EPI) equation refit without adjustment for race Performed By: #### L AB15, [id number], [id number] ####Dispatcher Service Chief: VIVIAN PANTOJA ([phone])[facility])[address] [place] [address] Glucose [Mass/Vol] 123 mg/dL High 82-115 [facility] Comment on above: Performed By: #### L AB15, [id number], [id number] ####Dispatcher Service Chief: VIVIAN PANTJOA ([phone])[address] Potassium [Moles/Vol] 4.4 mmol/L Normal 3.5-5.1 [facility] Comment on above: Result Comment: [facility] potassium values may be up to 0.5 mmol/L lower than serum values. Performed By: #### L AB15, [id number], [id number] ####Dispatcher Service Chief: VIVIAN PANTOJA ([phone])[facility])[address] [place] [address] Sodium [Moles/Vol] 144 mmol/L Normal 136-145 [facility] Comment on above: Performed By: #### L AB15, [id number], [id number] ####Dispatcher Service Chief: VIVIAN PANTOJA ([phone])[facility])[address] [place] [address] Urea nitrogen [Mass/Vol] 21 mg/dL Normal 9-23 [facility] Comment on above: Performed By: #### L AB15, [id number], [id number] ####Dispatcher Service Chief: VIVIAN PANTOJA ([id number])[facility])[address] [place] [address] Basic metabolic 1998 panelon 05-06-2024 Anion gap [Moles/Vol] 5 mmol/L 3 - 13 mmol/L [facility] Calcium [Mass/Vol] 8.9 mg/dL 8.8 - 10. 0 mg/dL [facility] Chloride [Moles/Vol] 109 mmol/L High 98 - 10 7 mmol/L [facility] CO2 [Moles/Vol] 30 mmol/L 23 - 31 mmol/L [facility] Creatinine [Mass/Vol] 0.68 mg/dL 0.57 - 1.11 mg/dL [facility] GFR/1.73 sq M.predicted (S/P/Bld) [Vol rate/Area] - PINF [facility] Glucose [Mass/Vol] 123 mg/dL High 82 - 115 mg/dL [facility] Potassium [Moles/Vol] 4.4 mmol/L 3.5 - 5.1 mmol/L [facility] Sodium [Moles/Vol] 144 mmol/L 136 - 145 mmol/L [facility] Urea nitrogen [Mass/Vol] 21 mg/dL 9 - 23 mg/dL [facility] CBC (HEMOGRAM)on 05-06-2024 Erythrocyte distribution width (RBC) [Ratio] 14.8 % Normal 11.5-15.0 [facility] Comment on above: Performed By: #### L [id number] ####Dispatcher Service Chief: VIVIAN PANTOJA ([id number])[address] Hematocrit (Bld) [Volume fraction] 27.6 % Low 35.0-47.0 [facility] Comment on above: Performed By: #### L [id number] ####Dispatcher Service Chief: VIVIAN PANTOJA ([phone])[facility])[address] [place] [address] Hemoglobin (Bld) [Mass/Vol] 8.4 g/dL Low 11.7-16.0 [facility] Comment on above: Performed By: #### L [id number] ####Dispatcher Service Chief: VIVIAN PANTOJA ([phone])[facility])[address] [place] [address] IPF 16 Normal [facility] Comment on above: Performed By: #### L [id number] ####Dispatcher Service Chief: VIVIAN PANTOJA ([phone])[facility])[address] [place] [address] MCH (RBC) [Entitic mass] 28.0 pg Normal 26.0-34.0 [facility] Comment on above: Performed By: #### L [id number] ####Dispatcher Service Chief: VIVIAN PANTOJA ([phone])[facility])[address] [place] [address] MCHC 30.4 % Low 30.5-36.0 [facility] Comment on above: Performed By: #### L [id number] ####Dispatcher Service Chief: VIVIAN PANTOJA ([phone])[facility] ([facility])[address] [place] [address] MCV (RBC) [Entitic vol] 92.0 fL Normal 77.0-99.0 [facility] Comment on above: Performed By: #### L AB294 ####Dispatcher Service Chief: VIVIAN PANTOJA ([phone])[facility])[address] [place] [address] Platelet mean volume (Bld) [Entitic vol] 14.0 fL High 9.0-12.7 [facility] Comment on above: Performed By: #### L AB294 ####Dispatcher Service Chief: VIVIAN PANTOJA ([phone])[facility] ([facility])[address] [place] [address] Platelets (Bld) [#/Vol] 62 10*3/uL Low 140-440 [facility] Comment on above: Performed By: #### L AB294 ####Dispatcher Service Chief: VIVIAN PANTOJA ([phone])[facility])[address] [place] [address] RBC (Bld) [#/Vol] 3.00 10*6/uL Low 3.80-5.20 [facility] Comment on above: Performed By: #### L AB294 ####Dispatcher Service Chief: VIVIAN PANTOJA ([phone])[facility])[address] [place] [address] WBC (Bld) [#/Vol] 9.2 10*3/uL Normal 3.6-10.7 [facility] Comment on above: Performed By: #### L AB294 ####Dispatcher Service Chief: VIVIAN PANTOJA ([phone])[address] CBC panel Auto (Bld)on 05-06 Erythrocyte distribution width (RBC) [Ratio] 14.8 % 11.5 - 15.0 % [facility] Hematocrit (Bld) [Volume fraction] 27.6 % Low 35.0 - 47.0 % [facility] Hemoglobin (Bld) [Mass/Vol] 8.4 g/dL Low 11.7 - 16.0 g/dL [facility] Interpretation and review of laboratory results Abnormal [facility] IPF 16 [facility] MCH (RBC) [Entitic mass] 28 pg 26.0 - 34.0 pg [facility] MCHC (RBC) [Mass/Vol] 30.4 % Low 30.5 - 36.0 % [facility] MCV (RBC) [Entitic vol] 92 fL 77.0 - 99.0 fL [facility] Platelet mean volume (Bld) [Entitic vol] 14 fL High 9.0 - 12.7 fL [facility] Platelets (Bld) [#/Vol] 62 10*3/uL Low 140 - 440 10*3/uL [facility] RBC (Bld) [#/Vol] 3 10*6/uL Low 3.80 - 5.2 0 10*6/uL [facility] WBC (Bld) [#/Vol] 9.2 10*3/uL 3.6 - 10.7 10*3/uL [facility] Laboratory - Chemistry and C hemistry - challengeon 05-06-2024 Aldosterone [Mass/Vol] <1 ng/dL [facility] Magnesium [Mass/Vol] 2 mg/dL 1.6 - 2 .6 mg/dL [facility] MAGNESIUMon 05-06-2024 Magnesium [Mass/Vol] 2.0 mg/dL Normal 1.6-2.6 [facility] Comment on above: Result Comment: ORDE R COMMENTS:Higher values can be expected in females during menses. Performed By: #### L AB15, [id number], [id number] ####Dispatcher Service Chief: VIVIAN PANTOJA ([phone])[facility] ([facility])[address] [place] [address] [place] Magnesium [Mass/Vol]on 05-06 Interpretation and review of laboratory results Normal [facility] No Panel Informationon 05-06 [facility] Interpretation and review of laboratory results Abnormal [facility] PHOSPHORUSon 05-06-2024 Phosphate [Mass/Vol] 2.1 mg/dL Low 2.3-4.7 [facility] Comment on above: Performed By: #### L AB15, [id number], [id number] ####Dispatcher Service Chief: VIVIAN PANTOJA ([phone])[facility] ([facility])[address] [place] [address] [place] Phosphate [Moles/Vol]on 04-16 Phosphate [Mass/Vol] 2.1 mg/dL Low 2.3 - 4 .7 mg/dL [facility] Progress Noteon 05-06-2024 Progress Note Normal [facility] Progress Note Chart reviewed Creatinine stable We will follow peripherally over the weekend Please call with issues Normal [facility] Progress Note Normal [facility] 30on 05-05-2024 30 Normal [facility] 30 Normal [facility] [id number] 05-05-2024 [id number] Normal [facility] [id number] Normal [facility] 36on 05-05-2024 36 Still admitted. Normal [facility] BASIC METABOLIC PANELon 04-16 Anion gap [Moles/Vol] 5 mmol/L Normal 3-13 [facility] Comment on above: Performed By: #### L AB103, LAB15, [id number] ####Dispatcher Service Chief: VIVIAN PANTOJA ([phone])[facility] ([facility])[address] [place] [address] [place] Calcium [Mass/Vol] 8.6 mg/dL Low 8.8-10.0 [facility] Comment on above: Performed By: #### L AB103, LAB15, [id number] ####Dispatcher Service Chief: VIVIAN PANTOJA ([phone])[facility] ([facility])[address] [place] [address] Chloride [Moles/Vol] 109 mmol/L High 98-107 [facility] Comment on above: Performed By: #### L AB103, LAB15, [id number] ####Dispatcher Service Chief: VIVIAN PANTOJA ([phone])[facility])[address] [place] [address] CO2 [Moles/Vol] 28 mmol/L Normal 23-31 [facility] Comment on above: Performed By: #### L AB103, LAB15, [id number] ####Dispatcher Service Chief: VIVIAN PANTOJA ([phone])[facility])[address] [place] [address] Creatinine [Mass/Vol] 0.77 mg/dL Normal 0.57-1.11 [facility] Comment on above: Performed By: #### L AB103, LAB15, [id number] ####Dispatcher Service Chief: VIVIAN PANTOJA ([phone])[facility])[address] [place] [address] GLOMERULAR FILTRATION RATE ML/MIN/1.73 SQ M.PREDICTED 81.6 mL/min/1.73m*2 Normal >60.0 [facility] Comment on above: Result Comment: Calc ulation based on the Chronic Kidney Disease Epidemiology Collaboration (CKD-EPI) equation refit without adjustment for race Performed By: #### L AB103, LAB15, [id number] ####Dispatcher Service Chief: VIVIAN PANTOJA ([phone])[facility])[address] [place] [address] Glucose [Mass/Vol] 114 mg/dL Normal 82-115 [facility] Comment on above: Performed By: #### L AB103, LAB15, [id number] ####Dispatcher Service Chief: VIVIAN PANTOJA ([phone])[facility])[address] [place] [address] Potassium [Moles/Vol] 5.0 mmol/L Normal 3.5-5.1 [facility] Comment on above: Result Comment: [facility] potassium values may be up to 0.5 mmol/L lower than serum values. Performed By: #### L AB103, LAB15, [id number] ####Dispatcher Service Chief: VIVIAN PANTOJA ([phone])[facility] ([facility])[address] [place] [address] Sodium [Moles/Vol] 142 mmol/L Normal 136-145 [facility] Comment on above: Performed By: #### L AB103, LAB15, [id number] ####Dispatcher Service Chief: VIVIAN PANTOJA ([phone])[facility] ([facility])[address] [place] [address] Urea nitrogen [Mass/Vol] 26 mg/dL High 9-23 [facility] Comment on above: Performed By: #### L AB103, LAB15, [id number] ####Dispatcher Service Chief: VIVIAN PANTOJA ([phone])[facility] ([facility])[address] [place] [address] Basic metabolic 1998 panelon 05-05-2024 Anion gap [Moles/Vol] 5 mmol/L 3 - 13 mmol/L [facility] Calcium [Mass/Vol] 8.6 mg/dL Low 8.8 - 10. 0 mg/dL [facility] Chloride [Moles/Vol] 109 mmol/L High 98 - 10 7 mmol/L [facility] CO2 [Moles/Vol] 28 mmol/L 23 - 31 mmol/L [facility] Creatinine [Mass/Vol] 0.77 mg/dL 0.57 - 1.11 mg/dL [facility] GFR/1.73 sq M.predicted (S/P/Bld) [Vol rate/Area] 81.6 mL/min - PINF [facility] Glucose [Mass/Vol] 114 mg/dL 82 - 115 mg/dL [facility] Potassium [Moles/Vol] 5 mmol/L 3.5 - 5.1 mmol/L [facility] Sodium [Moles/Vol] 142 mmol/L 136 - 145 mmol/L [facility] Urea nitrogen [Mass/Vol] 26 mg/dL High 9 - 23 mg/dL [facility] CALCIUM, IONIZEDon CALCIUM IONIZED 4.50 mg/dL Normal 4.30-5.20 [facility] Comment on above: Performed By: #### L AB54 ####Dispatcher Service Chief: VIVIAN PANTOJA ([phone])[facility])[address] [place] [address] PH, IONIZED CALCIUM 7.28 Low 7.31-7.46 [facility] Comment on above: Performed By: #### L AB54 ####Dispatcher Service Chief: VIVIAN PANTOJA ([phone])[facility])[address] [place] [address] CBC (HEMOGRAM)on 05-05-2024 Erythrocyte distribution width (RBC) [Ratio] 15.0 % Normal 11.5-15.0 [facility] Comment on above: Performed By: #### L AB294 ####Dispatcher Service Chief: VIVIAN PANTOJA ([phone])[facility])[address] [place] [address] Hematocrit (Bld) [Volume fraction] 28.0 % Low 35.0-47.0 [facility] Comment on above: Performed By: #### L AB294 ####Dispatcher Service Chief: VIVIAN PANTOJA ([phone])[facility])[address] [place] [address] Hemoglobin (Bld) [Mass/Vol] 8.4 g/dL Low 11.7-16.0 [facility] Comment on above: Performed By: #### L AB294 ####Dispatcher Service Chief: VIVIAN PANTOJA ([phone])[facility])[address] [place] [address] IPF 16 Normal [facility] Comment on above: Performed By: #### L AB294 ####Dispatcher Service Chief: VIVIAN PANTOJA ([phone])[facility])[address] [place] [address] MCH (RBC) [Entitic mass] 27.8 pg Normal 26.0-34.0 [facility] Comment on above: Performed By: #### L AB294 ####Dispatcher Service Chief: VIVIAN PANTOJA ([phone])[facility])[address] [place] [address] MCHC 30.0 % Low 30.5-36.0 [facility] Comment on above: Performed By: #### L AB294 ####Dispatcher Service Chief: VIVIAN PANTOJA ([phone])[facility])[address] [place] [address] MCV (RBC) [Entitic vol] 92.7 fL Normal 77.0-99.0 [facility] Comment on above: Performed By: #### L AB294 ####Dispatcher Service Chief: VIVIAN PANTOJA ([phone])[facility] ([facility])[address] [place] [address] MPV Normal [facility] Comment on above: Result Comment: Unab le to calculate result. Performed By: #### L AB294 ####Dispatcher Service Chief: VIVIAN PANTOJA ([phone])[facility] ([facility])[address] [place] [address] Platelets (Bld) [#/Vol] 57 10*3/uL Low 140-440 [facility] Comment on above: Performed By: #### L AB294 ####Dispatcher Service Chief: VIVIAN PANTOJA ([phone])[facility] ([facility])[address] [place] [address] RBC (Bld) [#/Vol] 3.02 10*6/uL Low 3.80-5.20 [facility] Comment on above: Performed By: #### L AB294 ####Dispatcher Service Chief: VIVIAN PANTOJA ([phone])[facility] ([facility])[address] [place] [address] WBC (Bld) [#/Vol] 6.8 10*3/uL Normal 3.6-10.7 [facility] Comment on above: Performed By: #### L AB294 ####Dispatcher Service Chief: VIVIAN PANTOJA ([phone])[facility])[address] [place] [address] CBC panel Auto (Bld)on 05-05 Erythrocyte distribution width (RBC) [Ratio] 15 % 11.5 - 15.0 % [facility] Hematocrit (Bld) [Volume fraction] 28 % Low 35.0 - 47.0 % [facility] Hemoglobin (Bld) [Mass/Vol] 8.4 g/dL Low 11.7 - 16.0 g/dL [facility] Interpretation and review of laboratory results Abnormal [facility] IPF 16 [facility] MCH (RBC) [Entitic mass] 27.8 pg 26.0 - 34.0 pg [facility] MCHC (RBC) [Mass/Vol] 30 % Low 30.5 - 36.0 % [facility] MCV (RBC) [Entitic vol] 92.7 fL 77.0 - 99.0 fL [facility] Platelet mean volume (Bld) [Entitic vol] [facility] Platelets (Bld) [#/Vol] 57 10*3/uL Low 140 - 440 10*3/uL [facility] RBC (Bld) [#/Vol] 3.02 10*6/uL Low 3.80 - 5.2 0 10*6/uL [facility] WBC (Bld) [#/Vol] 6.8 10*3/uL 3.6 - 10.7 10*3/uL [facility] Calcium.ionized [Moles/Vol]O rdered By: Andrew Jacinto on 05-05-2024 Calcium.ionized (Bld) [Moles/Vol] 4.5 mg/dL 4.30 - 5.20 mg/dL [facility] Interpretation and review of laboratory results Abnormal [facility] PH, IONIZED CALCIUM 7.28 Low 7.31 - 7.46 [facility] HIV 1+2 Ab+HIV1 p24 Ag IA Ql Ordered By: Miles Greco on 05-05-2024 Interpretation and review of laboratory results Normal [facility] Laboratory - Chemistry and C hemistry - challengeon 05-05-2024 Magnesium [Mass/Vol] 1.7 mg/dL 1.6 - 2 .6 mg/dL [facility] Laboratory - Microbiology an d Antimicrobial susceptibilityOrdered By: Miles Greco on 05-05-2024 HIV 1+2 Ab+HIV1 p24 Ag IA Ql Non-Reactive Nonreactive [facility] MAGNESIUMon 05-05-2024 Magnesium [Mass/Vol] 1.7 mg/dL Normal 1.6-2.6 [facility] Comment on above: Result Comment: ORDE R COMMENTS:Higher values can be expected in females during menses. Performed By: #### L AB103, LAB15, [id number] ####Dispatcher Service Chief: VIVIAN PANTOJA ([phone])[facility] ([facility])[address] [place] [address] [place] Magnesium [Mass/Vol]on 05-05 Interpretation and review of laboratory results Normal [facility] No Panel Informationon 05-05 Interpretation and review of laboratory results Abnormal [facility] PHOSPHORUSon 05-05-2024 Phosphate [Mass/Vol] 2.1 mg/dL Low 2.3-4.7 [facility] Comment on above: Performed By: #### L AB103, LAB15, [id number] ####Dispatcher Service Chief: VIVIAN PANTOJA ([phone])[facility])[address] [place] [address] [place] Phosphate [Moles/Vol]on 04-16 Phosphate [Mass/Vol] 2.1 mg/dL Low 2.3 - 4 .7 mg/dL [facility] Progress Noteon 05-05-2024 Progress Note Normal [facility] Progress Note Normal [facility] Progress Note Normal [facility] Progress Note Normal [facility] Progress Note Normal [facility] Progress Note Normal [facility] Progress Note Normal [facility] 30on 05-04-2024 30 Pt hemodynamically stable-Transfer orders written to [facility]-Daughter here visiting and aware and also updated Normal [facility] 30 Normal [facility] [id number] 05-04-2024 [id number] Normal [facility] [id number] Normal [facility] BASIC METABOLIC PANELon 04-16 Anion gap [Moles/Vol] 7 mmol/L Normal 3-13 [facility] Comment on above: Performed By: #### L AB103, LAB15, [id number] ####Dispatcher Service Chief: VIVIAN PANTOJA ([phone])[facility] ([facility])[address] [place] [address] [place] Calcium [Mass/Vol] 8.4 mg/dL Low 8.8-10.0 [facility] Comment on above: Performed By: #### L AB103, LAB15, [id number] ####Dispatcher Service Chief: VIVIAN PANTOJA ([phone])[facility])[address] [place] [address] Chloride [Moles/Vol] 109 mmol/L High 98-107 [facility] Comment on above: Performed By: #### L AB103, LAB15, [id number] ####Dispatcher Service Chief: VIVIAN PANTOJA ([phone])[facility] ([facility])[address] [place] [address] CO2 [Moles/Vol] 27 mmol/L Normal 23-31 [facility] Comment on above: Performed By: #### L AB103, LAB15, [id number] ####Dispatcher Service Chief: VIVIAN PANTOJA ([phone])[facility])[address] [place] [address] Creatinine [Mass/Vol] 0.93 mg/dL Normal 0.57-1.11 [facility] Comment on above: Performed By: #### L AB103, LAB15, [id number] ####Dispatcher Service Chief: VIVIAN PANTOJA ([phone])[facility])[address] [place] [address] GLOMERULAR FILTRATION RATE ML/MIN/1.73 SQ M.PREDICTED 65.0 mL/min/1.73m*2 Normal >60.0 [facility] Comment on above: Result Comment: Calc ulation based on the Chronic Kidney Disease Epidemiology Collaboration (CKD-EPI) equation refit without adjustment for race Performed By: #### L AB103, LAB15, [id number] ####Dispatcher Service Chief: VIVIAN PANTOJA ([phone])[facility] ([facility])[address] [place] [address] [place] Glucose [Mass/Vol] 95 mg/dL Normal 82-115 [facility] Comment on above: Performed By: #### L AB103, LAB15, [id number] ####Dispatcher Service Chief: VIVIAN [phone])[facility])[address] [place] [address] Potassium [Moles/Vol] 4.1 mmol/L Normal 3.5-5.1 [facility] Comment on above: Result Comment: [facility] potassium values may be up to 0.5 mmol/L lower than serum values. Performed By: #### L AB103, LAB15, [id number] ####Dispatcher Service Chief: VIVIAN PANTOJA ([phone])[facility])[address] [place] [address] Sodium [Moles/Vol] 143 mmol/L Normal 136-145 [facility] Comment on above: Performed By: #### L AB103, LAB15, [id number] ####Dispatcher Service Chief: VIVIAN PANTOJA ([phone])[facility])[address] [place] [address] Urea nitrogen [Mass/Vol] 23 mg/dL Normal 9-23 [facility] Comment on above: Performed By: #### L AB103, LAB15, [id number] ####Dispatcher Service Chief: VIVIAN PANTOJA ([phone])[facility])[address] [place] [address] BLOOD GAS, VENOUSon 05-04-19 25 Base excess Calc (BldV) [Moles/Vol] 1.7 mmol/L Normal -3.0-3.0 [facility] Comment on above: Performed By: #### L AB79 ####Dispatcher Service Chief: VIVIAN PANTOJA ([phone])[facility])[address] [place] [address] CO2 [Moles/Vol] 30.9 mmol/L High 24.0-28.0 [facility] Comment on above: Performed By: #### L AB79 ####Dispatcher Service Chief: VIVIAN PANTOJA ([phone])[facility])[address] [place] [address] HCO3 (Bld) [Moles/Vol] 29.0 mmol/L High 23.0-27.0 [facility] Comment on above: Performed By: #### L AB79 ####Dispatcher Service Chief: VIVIAN PANTOJA ([phone])[facility] ([facility])[address] [place] [address] Hemoglobin (Bld) [Mass/Vol] 9.6 g/dL Normal Screen only [facility] Comment on above: Performed By: #### L AB79 ####Dispatcher Service Chief: VIVIAN PANTOJA ([phone])[facility])[address] [place] [address] OXYGEN (MM HG) IN VENOUS BLOOD 58.1 mm Hg Normal [facility] Comment on above: Performed By: #### L AB79 ####Dispatcher Service Chief: VIVIAN PANTOJA ([phone])[facility] ([facility])[address] [place] [address] OXYGEN SATURATION (%) IN VENOUS BLOOD 86.4 % Normal [facility] Comment on above: Performed By: #### L AB79 ####Dispatcher Service Chief: VIVIAN PANTOJA ([phone])[facility] [place] [address] PCO2, CHA 61.2 mm Hg High 40.0-55.0 [facility] Comment on above: Performed By: #### L AB79 ####Dispatcher Service Chief: VIVIAN PANTOJA ([phone])[facility] ([facility])[address] [place] [address] PH VENOUS 7.294 Low 7.330-7.430 [facility] Comment on above: Performed By: #### L AB79 ####Dispatcher Service Chief: VIVIAN PANTOJA ([phone])[facility])[address] [place] [address] SOURCE OF OXYGEN 2L Normal [facility] Comment on above: Result Comment: LEOBARDO Gill COMMENTS:Assessment of oxygenation is best done with an arterial blood gas determination. Reference ranges for pO2, bicarbonate, and base excess are for mixed venous blood. Specimens drawn from a peripheral vein will often have higher values. Performed By: #### L AB79 ####Dispatcher Service Chief: VIVIAN PANTOJA ([phone])[facility] [place] [address] Base excess Calc (BldV) [Moles/Vol] 3.3 mmol/L High -3.0-3.0 [facility] Comment on above: Performed By: #### L AB79 ####Dispatcher Service Chief: VIVIAN PANTOJA ([phone])[facility] ([facility])[address] [place] [address] CO2 [Moles/Vol] 31.4 mmol/L High 24.0-28.0 [facility] Comment on above: Performed By: #### L AB79 ####Dispatcher Service Chief: VIVIAN PANTOJA ([phone])[facility] ([facility])[address] [place] [address] HCO3 (Bld) [Moles/Vol] 29.7 mmol/L High 23.0-27.0 [facility] Comment on above: Performed By: #### L AB79 ####Dispatcher Service Chief: VIVIAN PANTOJA ([phone])[facility] ([facility])[address] [place] [address] Hemoglobin (Bld) [Mass/Vol] 9.3 g/dL Normal Screen only [facility] Comment on above: Performed By: #### L AB79 ####Dispatcher Service Chief: VIVIAN PANTOJA ([phone])[facility])[address] [place] [address] OXYGEN (MM HG) IN VENOUS BLOOD 42.2 mm Hg Normal [facility] Comment on above: Performed By: #### L AB79 ####Dispatcher Service Chief: VIVIAN PANTOJA ([phone])[facility])[address] [place] [address] OXYGEN SATURATION (%) IN VENOUS BLOOD 72.0 % Normal [facility] Comment on above: Performed By: #### L AB79 ####Dispatcher Service Chief: VIVIAN PANTOJA ([phone])[facility])[address] [place] [address] [place] PCO2, CHA 55.6 mm Hg High 40.0-55.0 [facility] Comment on above: Performed By: #### L AB79 ####Dispatcher Service Chief: VIVIAN PANTOJA ([phone])[facility] ([facility])[address] [place] [address] PH VENOUS 7.346 Normal 7.330-7.430 [facility] Comment on above: Performed By: #### L AB79 ####Dispatcher Service Chief: VIVIAN PANTOJA ([phone])[facility])[address] [place] [address] SOURCE OF OXYGEN 30% Oxygen Normal [facility] Comment on above: Result Comment: WALDO CHAVEZ COMMENTS:Assessment of oxygenation is best done with an arterial blood gas determination. Reference ranges for pO2, bicarbonate, and base excess are for mixed venous blood. Specimens drawn from a peripheral vein will often have higher values. Performed By: #### L AB79 ####Dispatcher Service Chief: VIVIAN PANTOJA ([phone])[facility] ([facility])[address] [place] [address] Basic metabolic 1998 panelon 05-04-2024 Anion gap [Moles/Vol] 7 mmol/L 3 - 13 mmol/L [facility] Calcium [Mass/Vol] 8.4 mg/dL Low 8.8 - 10. 0 mg/dL [facility] Chloride [Moles/Vol] 109 mmol/L High 98 - 10 7 mmol/L [facility] CO2 [Moles/Vol] 27 mmol/L 23 - 31 mmol/L [facility] Creatinine [Mass/Vol] 0.93 mg/dL 0.57 - 1.11 mg/dL [facility] GFR/1.73 sq M.predicted (S/P/Bld) [Vol rate/Area] 65 mL/min - PINF [facility] Glucose [Mass/Vol] 95 mg/dL 82 - 115 mg/dL [facility] Potassium [Moles/Vol] 4.1 mmol/L 3.5 - 5.1 mmol/L [facility] Sodium [Moles/Vol] 143 mmol/L 136 - 145 mmol/L [facility] Urea nitrogen [Mass/Vol] 23 mg/dL 9 - 23 mg/dL [facility] CALCIUM, IONIZEDon CALCIUM IONIZED 4.30 mg/dL Normal 4.30-5.20 [facility] Comment on above: Performed By: #### L [id number] ####Dispatcher Service Chief: VIVIAN PANTOJA ([phone])[facility])[address] [place] [address] PH, IONIZED CALCIUM 7.35 Normal 7.31-7.46 [facility] Comment on above: Performed By: #### L AB54 ####Dispatcher Service Chief: VIVIAN PANTOJA ([phone])[facility])[address] [place] [address] CBC (HEMOGRAM)on 05-04-2024 Erythrocyte distribution width (RBC) [Ratio] 15.1 % High 11.5-15.0 [facility] Comment on above: Performed By: #### L [id number] ####Dispatcher Service Chief: VIVIAN PANTOJA ([phone])[facility])[address] [place] [address] Hematocrit (Bld) [Volume fraction] 26.7 % Low 35.0-47.0 [facility] Comment on above: Performed By: #### L [id number] ####Dispatcher Service Chief: VIVIAN PANTOJA ([phone])[address] Hemoglobin (Bld) [Mass/Vol] 8.2 g/dL Low 11.7-16.0 [facility] Comment on above: Performed By: #### L [id number] ####Dispatcher Service Chief: VIVIAN PANTOJA ([phone])[facility])[address] [place] [address] IPF 13 Normal [facility] Comment on above: Performed By: #### L [id number] ####Dispatcher Service Chief: VIVIAN PANTOJA ([phone])[address] MCH (RBC) [Entitic mass] 27.9 pg Normal 26.0-34.0 [facility] Comment on above: Performed By: #### L [id number] ####Dispatcher Service Chief: VIVIAN PANTOJA ([phone])[facility])[address] [place] [address] MCHC 30.7 % Normal 30.5-36.0 [facility] Comment on above: Performed By: #### L [id number] ####Dispatcher Service Chief: VIVIAN PANTOJA ([phone])[facility])[address] [place] [address] MCV (RBC) [Entitic vol] 90.8 fL Normal 77.0-99.0 [facility] Comment on above: Performed By: #### L [id number] ####Dispatcher Service Chief: VIVIAN PANTOJA ([phone])[facility])[address] [place] [address] Platelet mean volume (Bld) [Entitic vol] 13.8 fL High 9.0-12.7 [facility] Comment on above: Performed By: #### L [id number] ####Dispatcher Service Chief: VIVIAN PANTOJA ([phone])[facility] ([facility])[address] [place] [address] Platelets (Bld) [#/Vol] 46 10*3/uL Low 140-440 [facility] Comment on above: Performed By: #### L AB294 ####Dispatcher Service Chief: VIVIAN PANTOJA ([phone])[facility])[address] [place] [address] RBC (Bld) [#/Vol] 2.94 10*6/uL Low 3.80-5.20 [facility] Comment on above: Performed By: #### L AB294 ####Dispatcher Service Chief: VIVIAN PANTOJA ([phone])[facility])[address] [place] [address] WBC (Bld) [#/Vol] 6.9 10*3/uL Normal 3.6-10.7 [facility] Comment on above: Performed By: #### L [id number] ####Dispatcher Service Chief: VIVIAN PANTOJA ([phone])[facility])[address] [place] [address] CBC panel Auto (Bld)Ordered By: Alize Peraza on 05-04-2024 Erythrocyte distribution width (RBC) [Ratio] 15.1 % High 11.5 - 15.0 % [facility] Hematocrit (Bld) [Volume fraction] 26.7 % Low 35.0 - 47.0 % [facility] Hemoglobin (Bld) [Mass/Vol] 8.2 g/dL Low 11.7 - 16.0 g/dL [facility] Interpretation and review of laboratory results Abnormal [facility] IPF 13 [facility] MCH (RBC) [Entitic mass] 27.9 pg 26.0 - 34.0 pg [facility] MCHC (RBC) [Mass/Vol] 30.7 % 30.5 - 36.0 % [facility] MCV (RBC) [Entitic vol] 90.8 fL 77.0 - 99.0 fL [facility] Platelet mean volume (Bld) [Entitic vol] 13.8 fL High 9.0 - 12.7 fL [facility] Platelets (Bld) [#/Vol] 46 10*3/uL Low 140 - 440 10*3/uL [facility] RBC (Bld) [#/Vol] 2.94 10*6/uL Low 3.80 - 5.2 0 10*6/uL [facility] WBC (Bld) [#/Vol] 6.9 10*3/uL 3.6 - 10.7 10*3/uL [facility] Calcium.ionized [Moles/Vol]o n 05-04-2024 Calcium.ionized (Bld) [Moles/Vol] 4.3 mg/dL 4.30 - 5.20 mg/dL [facility] Interpretation and review of laboratory results Normal [facility] PH, IONIZED CALCIUM 7.35 7.31 - 7.46 [facility] Cobalamin (Vitamin B12) [Mas s/Vol]on 05-04-2024 Interpretation and review of laboratory results Normal [facility] Consulton 05-04-2024 Consult Normal [facility] HIV1,2 COMBO ANTIGEN-ANTIBOD Y SCREENon 05-04-2024 HIV 1,2 COMBO ANTIGEN/ANTIBODY Non-Reactive Normal Nonreactive [facility] Comment on above: Result Comment: The specimen was non-reactive for HIV-1 and HIV-2 antibodies and p24 antigen using an FDA-cleared 4th generation HIV test. Based on this non-reactive screen result, further reflexive testing was not indicated and was, therefore, not performed. Performed By: #### L [id number] ####Dispatcher Service Chief: VIVIAN PANTOJA ([phone])[facility] ([facility])[address] [place] [address] Laboratory - Chemistry and C hemistry - challengeon 05-04-2024 Procalcitonin [Mass/Vol] 0.11 ng/mL High NINF - 0.07 ng/mL [facility] Cobalamin (Vitamin B12) [Mass/Vol] 806 pg/mL 213 - 816 pg/mL [facility] Magnesium [Mass/Vol] 1.6 mg/dL 1.6 - 2 .6 mg/dL [facility] Base excess Calc (BldV) [Moles/Vol] 3.3 mmol/L High -3.0 - 3.0 mmol/L [facility] CO2 (BldV) [Partial pressure] 55.6 mm[Hg] High [facility] CO2 [Moles/Vol] 31.4 mmol/L High 24.0 - 28.0 mmol/L [facility] HCO3 (Bld) [Moles/Vol] 29.7 mmol/L High 23.0 - 27.0 mmol/L [facility] Oxygen (BldV) [Partial pressure] 42.2 mm[Hg] mm Hg [facility] pH (BldV) 7.346 [pH] 7.330 - 7.430 [facility] Laboratory - Chemistry and C hemistry - challengeOrdered By: Elias Swab on 05-04-2024 Base excess Calc (BldV) [Moles/Vol] 1.7 mmol/L -3.0 - 3.0 mmol/L [facility] CO2 (BldV) [Partial pressure] 61.2 mm[Hg] High [facility] CO2 [Moles/Vol] 30.9 mmol/L High 24.0 - 28.0 mmol/L [facility] HCO3 (Bld) [Moles/Vol] 29 mmol/L High 23.0 - 27.0 mmol/L [facility] Oxygen (BldV) [Partial pressure] 58.1 mm[Hg] mm Hg [facility] pH (BldV) 7.294 [pH] Low 7.330 - 7.430 [facility] Laboratory - Hematology and Cell countsOrdered By: Elias Swab on 05-04-2024 Hemoglobin (Bld) [Mass/Vol] 9.6 g/dL Screen only [facility] Laboratory - Hematology and Cell countson 05-04-2024 Hemoglobin (Bld) [Mass/Vol] 9.3 g/dL Screen only [facility] MAGNESIUMon 05-04-2024 Magnesium [Mass/Vol] 1.6 mg/dL Normal 1.6-2.6 [facility] Comment on above: Result Comment: LEOBARDO Gill COMMENTS:Higher values can be expected in females during menses. Performed By: #### L AB103, LAB15, [id number] ####Dispatcher Service Chief: VIVIAN PANTOJA ([phone])[facility])[address] [place] [address] Magnesium [Mass/Vol]on 05-04 Interpretation and review of laboratory results Normal [facility] No Panel InformationOrdered By: Elias Swab on 05-04-2024 Interpretation and review of laboratory results Abnormal [facility] Source Of Oxygen 2L [facility] No Panel Informationon 05-04 Interpretation and review of laboratory results Abnormal [facility] Interpretation and review of laboratory results Abnormal [facility] Source Of Oxygen 30% Oxygen [facility] PHOSPHORUSon 05-04-2024 Phosphate [Mass/Vol] 2.1 mg/dL Low 2.3-4.7 [facility] Comment on above: Performed By: #### L AB103, LAB15, [id number] ####Dispatcher Service Chief: VIVIAN PANTOJA ([phone])[facility] ([facility])[address] [place] [address] PNEUMONIA PCR PANELon 2024 PNEUMONIA PCR PANEL Normal [facility] Comment on above: Performed By: #### L [id number] ####Dispatcher Service Chief: VIVIAN PANTOJA ([phone])[facility])[address] [place] [address] PROCALCITONIN TESTon 025 PROCALCITONIN 0.11 ng/mL High <0.07 [facility] Comment on above: Result Comment: ORDE R COMMENTS:PCT <0.50 = Low risk of severe sepsis and/or septic shock.PCT >2.00 = High risk of severe sepsis and/or septic shock. Performed By: #### L [id number] ####Dispatcher Service Chief: VIVIAN PANTOJA ([phone])[facility] ([facility])[address] [place] [address] [place] Phosphate [Moles/Vol]on 04-16 Phosphate [Mass/Vol] 2.1 mg/dL Low 2.3 - 4 .7 mg/dL [facility] Procalcitonin [Mass/Vol]on 0 05-04-2024 Interpretation and review of laboratory results Abnormal [facility] Progress Noteon 05-04-2024 Progress Note Normal [facility] Progress Note Normal [facility] System [facility] Progress Note Normal [facility] Progress Note Normal [facility] Progress Note Normal [facility] Progress Note Normal [facility] RESPIRATORY CULTURE AND STAI Non 05-04-2024 RESPIRATORY CULTURE AND STAIN Normal [facility] Comment on above: Performed By: #### L [id number] ####Dispatcher Service Chief: VIVIAN PANTOJA ([phone])[facility] ([facility])[address] [place] [address] Respiratory pathogens DNA an d RNA panel STEPHANIE+non-probe (Lower resp)Ordered By: Danna Perez on 05-04-2024 Acinetobacter baumannii complex Not detected Not Detected [facility] Adenovirus Not detected Not Detected [facility] Chlamydia pneumoniae Not detected Not Detected [facility] Enterobacter cloacae complex Not detected Not Detected [facility] Escherichia coli Not detected Not Detected [facility] FLUAV RNA STEPHANIE+non-probe Ql (Lower resp) Detected Abnormal Not Detected [facility] FLUBV RNA STEPHANIE+non-probe Ql (Lower resp) Not detected Not Detected [facility] Haemophilus influenzae Not detected Not Detecte d [facility] Human Metapneumovirus Not detected Not Detected [facility] Human Rhinovirus/Enterovirus Not detected Not Detected [facility] Interpretation and review of laboratory results Abnormal [facility] Klebsiella (Enterobacter) aerogenes Not detected Not Detected [facility] Klebsiella oxytoca Not detected Not Detected [facility] Klebsiella pneumoniae Not detected Not Detected [facility] Legionella pneumophila Not detected Not Detecte d [facility] mecA Not detected Not Detected [facility] Moraxella catarrhalis Not detected Not Detected [facility] Mycoplasma pneumoniae Not detected Not Detected [facility] Parainfluenza virus Not detected Not Detected [facility] Proteus spp Not detected Not Detected [facility] Pseudomonas aeruginosa Not detected Not Detecte d [facility] RSV RNA STEPHANIE+probe Ql (Resp) Not detected Not Detected [facility] S. agalactiae Org specific cx Ql (Vag fld) Not detected Not Detected [facility] SARS-CoV-2 (COVID-19) RNA STEPHANIE+non-probe Ql (Nph) Not detected Not Detected [facility] Serratia marcescens Not detected Not Detected [facility] Staphylococcus aureus Detected Abnormal Not Detected [facility] Streptococcus pneumoniae Not detected Not Detected [facility] Streptococcus pyogenes Not detected Not Detecte d [facility] VITAMIN B12on 05-04-2024 Cobalamin (Vitamin B12) [Mass/Vol] 806 pg/mL Normal 213-816 [facility] Comment on above: Performed By: #### L AB67 ####Dispatcher Service Chief: AMAN SANTOS ([phone])[facility])[address] [place] [address] Vital signsOrdered By: Ellen Alonzo on 05-04-2024 Oxygen saturation in Venous blood 86.4 % [facility] Vital signson 05-04-2024 Oxygen saturation in Venous blood 72 % [facility] XR CHEST 1 VIEWon 05-04-2024 XR CHEST 1 VIEW Normal [facility] XR Chest Single viewon 05-04 [facility] RADIOLOGY [facility] RADIOLOGY [facility] Radiology Study observation (narrative) [facility] [id number] 05-03-2024 [id number] Normal [facility] 36on 05-03-2024 36 Currently admitted Normal [facility] BASIC METABOLIC PANELon 04-15 Anion gap [Moles/Vol] 5 mmol/L Normal 3-13 [facility] Comment on above: Performed By: #### L AB69, [id number], LAB15 ####Dispatcher Service Chief: VIVIAN PANTOJA ([phone])[facility])[address] [place] [address] Calcium [Mass/Vol] 8.6 mg/dL Low 8.8-10.0 [facility] Comment on above: Performed By: #### L AB69, [id number], LAB15 ####Dispatcher Service Chief: VIVIAN PANTOJA ([phone])[facility] ([facility])[address] [place] [address] Chloride [Moles/Vol] 111 mmol/L High 98-107 [facility] Comment on above: Performed By: #### L AB69, [id number], LAB15 ####Dispatcher Service Chief: VIVIAN PANTOJA ([phone])[facility])[address] [place] [address] CO2 [Moles/Vol] 29 mmol/L Normal 23-31 [facility] Comment on above: Performed By: #### Manpreet OROZCO, [id number], LAB15 ####Dispatcher Service Chief: VIVIAN PANTOJA ([phone])[facility] ([facility])[address] [place] [address] Creatinine [Mass/Vol] 0.89 mg/dL Normal 0.57-1.11 [facility] Comment on above: Performed By: #### Manpreet OROZCO, [id number], LAB15 ####Dispatcher Service Chief: VIVIAN PANTOJA ([phone])[facility])[address] [place] [address] [place] GLOMERULAR FILTRATION RATE ML/MIN/1.73 SQ M.PREDICTED 68.6 mL/min/1.73m*2 Normal >60.0 [facility] Comment on above: Result Comment: Calc ulation based on the Chronic Kidney Disease Epidemiology Collaboration (CKD-EPI) equation refit without adjustment for race Performed By: #### L ABJimmy, [id number], LAB15 ####Dispatcher Service Chief: VIVIAN PANTOJA ([id number])[facility] ([facility])[address] [place] [address] [place] Glucose [Mass/Vol] 116 mg/dL High 82-115 [facility] Comment on above: Performed By: #### L AB69, [id number], LAB15 ####Dispatcher Service Chief: VIVIAN PANTOJA ([phone])[facility] ([facility])[address] [place] [address] Potassium [Moles/Vol] 4.8 mmol/L Normal 3.5-5.1 [facility] Comment on above: Result Comment: [facility] potassium values may be up to 0.5 mmol/L lower than serum values. Performed By: #### L AB69, [id number], LAB15 ####Dispatcher Service Chief: VIVIAN PANTOJA ([phone])[facility] ([facility])[address] [place] [address] Sodium [Moles/Vol] 145 mmol/L Normal 136-145 [facility] Comment on above: Performed By: #### L AB69, [id number], LAB15 ####Dispatcher Service Chief: VIVIAN PANTOJA ([id number])[facility] ([facility])[address] [place] [address] Urea nitrogen [Mass/Vol] 19 mg/dL Normal 9-23 [facility] Comment on above: Performed By: #### L AB69, [id number], LAB15 ####Dispatcher Service Chief: VIVIAN PANTOJA ([phone])[facility] ([facility])[address] [place] [address] Anion gap [Moles/Vol] 7 mmol/L Normal 3-13 [facility] Comment on above: Performed By: #### L AB68, LAB15 ####Dispatcher Service Chief: VIVIAN PANTOJA ([phone])[facility] ([facility])[address] [place] [address] [place] Calcium [Mass/Vol] 8.3 mg/dL Low 8.8-10.0 [facility] Comment on above: Performed By: #### L AB68, LAB15 ####Dispatcher Service Chief: VIVIAN PANTOJA ([phone])[facility] ([facility])[address] [place] [address] [place] Chloride [Moles/Vol] 113 mmol/L High 98-107 [facility] Comment on above: Performed By: #### L AB68, LAB15 ####Dispatcher Service Chief: VIVIAN PANTOJA ([phone])[facility])[address] [place] [address] CO2 [Moles/Vol] 23 mmol/L Normal 23-31 [facility] Comment on above: Performed By: #### L AB68, LAB15 ####Dispatcher Service Chief: VIVIAN PANTOJA ([phone])[facility])[address] [place] [address] Creatinine [Mass/Vol] 0.90 mg/dL Normal 0.57-1.11 [facility] Comment on above: Performed By: #### L AB68, LAB15 ####Dispatcher Service Chief: VIVIAN PANTOJA ([phone])[facility])[address] [place] [address] GLOMERULAR FILTRATION RATE ML/MIN/1.73 SQ M.PREDICTED 67.6 mL/min/1.73m*2 Normal >60.0 [facility] Comment on above: Result Comment: Calc ulation based on the Chronic Kidney Disease Epidemiology Collaboration (CKD-EPI) equation refit without adjustment for race Performed By: #### L ABAntoni, LAB15 ####Dispatcher Service Chief: VIVIAN PANTOJA ([phone])[facility])[address] [place] [address] Glucose [Mass/Vol] 136 mg/dL High 82-115 [facility] Comment on above: Performed By: #### L AB68, LAB15 ####Dispatcher Service Chief: VIVIAN PANTOJA ([phone])[facility])[address] [place] [address] [place] Potassium [Moles/Vol] 5.5 mmol/L High 3.5-5.1 [facility] Comment on above: Result Comment: [facility] potassium values may be up to 0.5 mmol/L lower than serum values. Performed By: #### L AB68, LAB15 ####Dispatcher Service Chief: VIVIAN PANTOJA ([phone])[facility])[address] [place] [address] [place] Sodium [Moles/Vol] 143 mmol/L Normal 136-145 [facility] Comment on above: Performed By: #### L AB68, LAB15 ####Dispatcher Service Chief: VIVIAN PANTOJA ([phone])[facility])[address] [place] [address] Urea nitrogen [Mass/Vol] 17 mg/dL Normal 9-23 [facility] Comment on above: Performed By: #### L AB68, LAB15 ####Dispatcher Service Chief: VIVIAN PANTOJA ([phone])[facility])[address] [place] [address] BLOOD GAS, VENOUSon 05-03-19 25 Base excess Calc (BldV) [Moles/Vol] 1.7 mmol/L Normal -3.0-3.0 [facility] Comment on above: Performed By: #### L AB79 ####Dispatcher Service Chief: VIVIAN PANTOJA ([phone])[facility])[address] [place] [address] CO2 [Moles/Vol] 31.6 mmol/L High 24.0-28.0 [facility] Comment on above: Performed By: #### L AB79 ####Dispatcher Service Chief: VIVIAN PANTOJA ([phone])[facility])[address] [place] [address] HCO3 (Bld) [Moles/Vol] 29.6 mmol/L High 23.0-27.0 [facility] Comment on above: Performed By: #### L AB79 ####Dispatcher Service Chief: VIVIAN PANTOJA ([phone])[facility])[address] [place] [address] Hemoglobin (Bld) [Mass/Vol] 10.0 g/dL Normal Screen only [facility] Comment on above: Performed By: #### L AB79 ####Dispatcher Service Chief: VIVIAN PANTOJA ([phone])[facility])[address] [place] [address] OXYGEN (MM HG) IN VENOUS BLOOD 46.1 mm Hg Normal [facility] Comment on above: Performed By: #### L AB79 ####Dispatcher Service Chief: VIVIAN PANTOJA ([phone])[facility])[address] [place] [address] OXYGEN SATURATION (%) IN VENOUS BLOOD 75.3 % Normal [facility] Comment on above: Performed By: #### L AB79 ####Dispatcher Service Chief: VIVIAN PANTOJA ([phone])[facility])[address] [place] [address] PCO2, CHA 65.9 mm Hg High 40.0-55.0 [facility] Comment on above: Performed By: #### L AB79 ####Dispatcher Service Chief: VIVIAN PANTOJA ([phone])[address] PH VENOUS 7.270 Low 7.330-7.430 [facility] Comment on above: Performed By: #### L AB79 ####Dispatcher Service Chief: VIVIAN PANTOJA ([phone])[address] SOURCE OF OXYGEN 40% Oxygen Normal [facility] Comment on above: Result Comment: LEOBARDO Gill COMMENTS:Assessment of oxygenation is best done with an arterial blood gas determination. Reference ranges for pO2, bicarbonate, and base excess are for mixed venous blood. Specimens drawn from a peripheral vein will often have higher values. Interpret with caution, pO2 value falsely increased due to vacuum in tube. For accurate results, please draw on a heparinized syringe. Performed By: #### L AB79 ####Dispatcher Service Chief: VIVIAN PANTOJA ([phone])[facility])[address] [place] [address] Base excess Calc (BldV) [Moles/Vol] 2.2 mmol/L Normal -3.0-3.0 [facility] Comment on above: Performed By: #### L AB79 ####Dispatcher Service Chief: VIVIAN PANTOJA ([phone])[address] CO2 [Moles/Vol] 32.3 mmol/L High 24.0-28.0 [facility] Comment on above: Performed By: #### L AB79 ####Dispatcher Service Chief: VIVIAN PANTOJA ([phone])[facility])[address] [place] [address] HCO3 (Bld) [Moles/Vol] 30.2 mmol/L High 23.0-27.0 [facility] Comment on above: Performed By: #### L AB79 ####Dispatcher Service Chief: VIVIAN PANTOJA ([phone])[facility])[address] [place] [address] Hemoglobin (Bld) [Mass/Vol] 9.8 g/dL Normal Screen only [facility] Comment on above: Performed By: #### L AB79 ####Dispatcher Service Chief: VIVIAN PANTOJA ([phone])[facility])[address] [place] [address] OXYGEN (MM HG) IN VENOUS BLOOD 51.7 mm Hg Normal [facility] Comment on above: Performed By: #### L AB79 ####Dispatcher Service Chief: VIVIAN PANTOJA ([phone])[facility])[address] [place] [address] OXYGEN SATURATION (%) IN VENOUS BLOOD 80.3 % Normal [facility] Comment on above: Performed By: #### L AB79 ####Dispatcher Service Chief: VIVIAN PANTOJA ([phone])[facility])[address] [place] [address] [place] PCO2, CHA 67.7 mm Hg High 40.0-55.0 [facility] Comment on above: Performed By: #### L AB79 ####Dispatcher Service Chief: VIVIAN PANTOJA ([phone])[facility])[address] [place] [address] PH VENOUS 7.267 Low 7.330-7.430 [facility] Comment on above: Performed By: #### L AB79 ####Dispatcher Service Chief: VIVIAN PANTOJA ([phone])[facility])[address] [place] [address] [place] SOURCE OF OXYGEN ETT Normal [facility] Comment on above: Result Comment: 40%O RDER COMMENTS:Assessment of oxygenation is best done with an arterial blood gas determination. Reference ranges for pO2, bicarbonate, and base excess are for mixed venous blood. Specimens drawn from a peripheral vein will often have higher values. Performed By: #### L AB79 ####Dispatcher Service Chief: VIVIAN PANTOJA ([phone])[facility] ([facility])[address] [place] [address] Basic metabolic 1998 panelon 05-03-2024 Anion gap [Moles/Vol] 5 mmol/L 3 - 13 mmol/L [facility] Calcium [Mass/Vol] 8.6 mg/dL Low 8.8 - 10. 0 mg/dL [facility] Chloride [Moles/Vol] 111 mmol/L High 98 - 10 7 mmol/L [facility] CO2 [Moles/Vol] 29 mmol/L 23 - 31 mmol/L [facility] Creatinine [Mass/Vol] 0.89 mg/dL 0.57 - 1.11 mg/dL [facility] GFR/1.73 sq M.predicted (S/P/Bld) [Vol rate/Area] 68.6 mL/min - PINF [facility] Glucose [Mass/Vol] 116 mg/dL High 82 - 115 mg/dL [facility] Interpretation and review of laboratory results Abnormal [facility] Potassium [Moles/Vol] 4.8 mmol/L 3.5 - 5.1 mmol/L [facility] Sodium [Moles/Vol] 145 mmol/L 136 - 145 mmol/L [facility] Urea nitrogen [Mass/Vol] 19 mg/dL 9 - 23 mg/dL [facility] Basic metabolic 1997 panelOr dered By: Kenan Garcia on 05-03-2024 Anion gap [Moles/Vol] 7 mmol/L 3 - 13 mmol/L [facility] Calcium [Mass/Vol] 8.3 mg/dL Low 8.8 - 10. 0 mg/dL [facility] Chloride [Moles/Vol] 113 mmol/L High 98 - 10 7 mmol/L [facility] CO2 [Moles/Vol] 23 mmol/L 23 - 31 mmol/L [facility] Creatinine [Mass/Vol] 0.9 mg/dL 0.57 - 1.11 mg/dL [facility] GFR/1.73 sq M.predicted (S/P/Bld) [Vol rate/Area] 67.6 mL/min - PINF [facility] Glucose [Mass/Vol] 136 mg/dL High 82 - 115 mg/dL [facility] Interpretation and review of laboratory results Abnormal [facility] Potassium [Moles/Vol] 5.5 mmol/L High 3.5 - 5.1 mmol/L [facility] Sodium [Moles/Vol] 143 mmol/L 136 - 145 mmol/L [facility] Urea nitrogen [Mass/Vol] 17 mg/dL 9 - 23 mg/dL [facility] CBC (HEMOGRAM)on 05-03-2024 Erythrocyte distribution width (RBC) [Ratio] 15.1 % High 11.5-15.0 [facility] Comment on above: Performed By: #### L [id number] ####Dispatcher Service Chief: VIVIAN PANTOJA ([phone])[address] Hematocrit (Bld) [Volume fraction] 28.0 % Low 35.0-47.0 [facility] Comment on above: Performed By: #### L [id number] ####Dispatcher Service Chief: VIVIAN PANTOJA ([phone])[address] Hemoglobin (Bld) [Mass/Vol] 8.6 g/dL Low 11.7-16.0 [facility] Comment on above: Performed By: #### L [id number] ####Dispatcher Service Chief: VIVIAN PANTOJA ([phone])[facility])[address] [place] [address] IPF 14 Normal [facility] Comment on above: Performed By: #### L [id number] ####Dispatcher Service Chief: VIVIAN PANTOJA ([phone])[facility])[address] [place] [address] MCH (RBC) [Entitic mass] 28.2 pg Normal 26.0-34.0 [facility] Comment on above: Performed By: #### L [id number] ####Dispatcher Service Chief: VIVIAN PANTOJA ([phone])[facility] ([facility])[address] [place] [address] MCHC 30.7 % Normal 30.5-36.0 [facility] Comment on above: Performed By: #### L [id number] ####Dispatcher Service Chief: VIVIAN PANTOJA ([phone])[facility] ([facility])[address] [place] [address] MCV (RBC) [Entitic vol] 91.8 fL Normal 77.0-99.0 [facility] Comment on above: Performed By: #### L [id number] ####Dispatcher Service Chief: VIVIAN PANTOJA ([phone])[facility])[address] [place] [address] MPV Normal [facility] Comment on above: Result Comment: Unab le to calculate. Performed By: #### L [id number] ####Dispatcher Service Chief: VIVIAN PANTOJA ([phone])[facility] ([facility])[address] [place] [address] Platelets (Bld) [#/Vol] 37 10*3/uL Low 140-440 [facility] Comment on above: Performed By: #### L [id number] ####Dispatcher Service Chief: VIVIAN PANTOJA ([phone])[facility] ([facility])[address] [place] [address] RBC (Bld) [#/Vol] 3.05 10*6/uL Low 3.80-5.20 [facility] Comment on above: Performed By: #### L [id number] ####Dispatcher Service Chief: VIVIAN PANTOJA ([phone])[facility] ([facility])[address] [place] [address] [place] WBC (Bld) [#/Vol] 7.3 10*3/uL Normal 3.6-10.7 [facility] Comment on above: Performed By: #### L [id number] ####Dispatcher Service Chief: VIVIAN PANTOJA ([phone])[facility] ([facility])[address] [place], [place] [id number] [facility] CBC W Auto Differential pane l (Bld)Ordered By: Jacqui Gutierrez on 05-03-2024 Basophils (Bld) [#/Vol] 0 10*3/uL 0.0 - 0.2 10*3/uL [facility] Basophils/100 WBC (Bld) 0.1 % 0.0 - 2.0 % [facility] Eosinophils (Bld) [#/Vol] 0 10*3/uL 0.0 - 0.5 10*3/uL [facility] Eosinophils/100 WBC (Bld) 0 % 0.0 - 6.0 % [facility] Erythrocyte distribution width (RBC) [Ratio] 15.1 % High 11.5 - 15.0 % [facility] Hematocrit (Bld) [Volume fraction] 32.1 % Low 35.0 - 47.0 % [facility] Hemoglobin (Bld) [Mass/Vol] 9.4 g/dL Low 11.7 - 16.0 g/dL [facility] Immature granulocytes (Bld) [#/Vol] 0.1 10*3/uL High NINF - 0.1 10*3/uL [facility] Immature granulocytes/100 WBC (Bld) 1 % 0.0 - 2.0 % [facility] Interpretation and review of laboratory results Abnormal [facility] IPF 15 [facility] Lymphocytes (Bld) [#/Vol] 0.5 10*3/uL Low 1.0 - 4.3 10*3/uL [facility] Lymphocytes/100 WBC (Bld) 6.7 % Low 15.0 - 45.0 % [facility] MCH (RBC) [Entitic mass] 27.9 pg 26.0 - 34.0 pg [facility] MCHC (RBC) [Mass/Vol] 29.3 % Low 30.5 - 36.0 % [facility] MCV (RBC) [Entitic vol] 95.3 fL 77.0 - 99.0 fL [facility] Monocytes (Bld) [#/Vol] 1.3 10*3/uL High 0.0 - 0.9 10*3/uL [facility] Monocytes/100 WBC (Bld) 18.2 % High 5.0 - 13.0 % [facility] Neutrophils (Bld) [#/Vol] 5.4 10*3/uL 1.8 - 7.5 10*3/uL [facility] Neutrophils/100 WBC (Bld) 74 % 38.0 - 82.0 % [facility] Nucleated RBC/100 WBC (Bld) [Ratio] 0 % [facility] Platelet mean volume (Bld) [Entitic vol] 13.9 fL High 9.0 - 12.7 fL [facility] Platelets (Bld) [#/Vol] 44 10*3/uL Low 140 - 440 10*3/uL [facility] RBC (Bld) [#/Vol] 3.37 10*6/uL Low 3.80 - 5.2 0 10*6/uL [facility] WBC (Bld) [#/Vol] 7.3 10*3/uL 3.6 - 10.7 10*3/uL [facility] CBC WITH AUTO DIFFERENTIALon 05-03-2024 Basophils (Bld) [#/Vol] 0.0 10*3/uL Normal 0.0-0.2 [facility] Comment on above: Performed By: #### L [id number] ####Dispatcher Service Chief: VIVIAN PANTOJA ([phone])[facility])[address] [place] [address] Basophils/100 WBC (Bld) 0.1 % Normal 0.0-2.0 [facility] Comment on above: Performed By: #### L [id number] ####Dispatcher Service Chief: VIVIAN PANTOJA ([phone])[place] [address] [place] Eosinophils (Bld) [#/Vol] 0.0 10*3/uL Normal 0.0-0.5 [facility] Comment on above: Performed By: #### L [id number] ####Dispatcher Service Chief: VIVIAN PANTOJA ([phone])[facility])[address] [place] [address] [place] Eosinophils/100 WBC (Bld) 0.0 % Normal 0.0-6.0 [facility] Comment on above: Performed By: #### L [id number] ####Dispatcher Service Chief: VIVIAN [phone])[facility])[address] [place] [address] Erythrocyte distribution width (RBC) [Ratio] 15.1 % High 11.5-15.0 [facility] Comment on above: Performed By: #### L [id number] ####Dispatcher Service Chief: VIVIAN PANTOJA ([phone])[facility])[address] [place] [address] Hematocrit (Bld) [Volume fraction] 32.1 % Low 35.0-47.0 [facility] Comment on above: Performed By: #### L [id number] ####Dispatcher Service Chief: VIVIAN PANTOJA ([phone])[facility])[address] [place] [address] Hemoglobin (Bld) [Mass/Vol] 9.4 g/dL Low 11.7-16.0 [facility] Comment on above: Performed By: #### L [id number] ####Dispatcher Service Chief: VIVIAN PANTOJA ([phone])[facility])[address] [place] [address] IMMATURE GRANS % 1.0 % Normal 0.0-2.0 [facility] Comment on above: Performed By: #### L [id number] ####Dispatcher Service Chief: VIVIAN PANTOJA ([phone])[facility])[address] [place] [address] IMMATURE GRANS ABSOLUTE 0.1 10*3/uL High <0.1 [facility] Comment on above: Performed By: #### L [id number] ####Dispatcher Service Chief: VIVIAN PANTOJA ([phone])[facility])[address] [place] [address] [place] IPF 15 Normal [facility] Comment on above: Performed By: #### L [id number] ####Dispatcher Service Chief: VIVIAN PANTOJA ([phone])[facility])[address] [place] [address] Lymphocytes (Bld) [#/Vol] 0.5 10*3/uL Low 1.0-4.3 [facility] Comment on above: Performed By: #### L [id number] ####Dispatcher Service Chief: VIVIAN PANTOJA ([phone])[facility] ([facility])[address] [place] [address] Lymphocytes/100 WBC (Bld) 6.7 % Low 15.0-45.0 [facility] Comment on above: Performed By: #### L [id number] ####Dispatcher Service Chief: VIVIAN PANTOJA ([phone])[facility])[address] [place] [address] MCH (RBC) [Entitic mass] 27.9 pg Normal 26.0-34.0 [facility] Comment on above: Performed By: #### L [id number] ####Dispatcher Service Chief: VIVIAN PANTOJA ([phone])[facility])[address] [place] [address] MCHC 29.3 % Low 30.5-36.0 [facility] Comment on above: Performed By: #### L [id number] ####Dispatcher Service Chief: VIVIAN PANTOJA ([phone])[facility] ([facility])[address] [place] [address] MCV (RBC) [Entitic vol] 95.3 fL Normal 77.0-99.0 [facility] Comment on above: Performed By: #### L [id number] ####Dispatcher Service Chief: VIVIAN PANTOJA ([phone])[facility])[address] [place] [address] Monocytes (Bld) [#/Vol] 1.3 10*3/uL High 0.0-0.9 [facility] Comment on above: Performed By: #### L [id number] ####Dispatcher Service Chief: VIVIAN PANTOJA ([phone])[facility])[address] [place] [address] Monocytes/100 WBC (Bld) 18.2 % High 5.0-13.0 [facility] Comment on above: Performed By: #### L [id number] ####Dispatcher Service Chief: VIVIAN PANTOJA ([phone])[facility])[address] [place] [address] NEUTROPHILS ABSOLUTE 5.4 10*3/uL Normal 1.8-7.5 [facility] Comment on above: Performed By: #### L [id number] ####Dispatcher Service Chief: VIVIAN PANTOJA ([phone])[facility] ([facility])[address] [place] [address] Neutrophils/100 WBC (Bld) 74.0 % Normal 38.0-82.0 [facility] Comment on above: Performed By: #### L [id number] ####Dispatcher Service Chief: VIVIAN PANTOJA ([phone])[facility] ([facility])[address] [place] [address] NRBC 0.0 /100 WBCs Normal 0.0-2.0 [facility] Comment on above: Performed By: #### L [id number] ####Dispatcher Service Chief: VIVIAN PANTOJA ([phone])[facility] ([facility])[address] [place] [address] Platelet mean volume (Bld) [Entitic vol] 13.9 fL High 9.0-12.7 [facility] Comment on above: Performed By: #### L [id number] ####Dispatcher Service Chief: VIVIAN PANTOJA ([phone])[facility] ([facility])[address] [place] [address] Platelets (Bld) [#/Vol] 44 10*3/uL Low 140-440 [facility] Comment on above: Performed By: #### L [id number] ####Dispatcher Service Chief: VIVIAN PANTOJA ([phone])[facility] ([facility])[address] [place] [address] [place] RBC (Bld) [#/Vol] 3.37 10*6/uL Low 3.80-5.20 [facility] Comment on above: Performed By: #### L [id number] ####Dispatcher Service Chief: VIVIAN PANTOJA ([phone])[facility] ([facility])[address] [place] [address] [place] WBC (Bld) [#/Vol] 7.3 10*3/uL Normal 3.6-10.7 [facility] Comment on above: Performed By: #### L [id number] ####Dispatcher Service Chief: VIVIAN PANTOJA ([phone])[facility] [place] [address] CBC panel Auto (Bld)on 05-03 Erythrocyte distribution width (RBC) [Ratio] 15.1 % High 11.5 - 15.0 % [facility] Hematocrit (Bld) [Volume fraction] 28 % Low 35.0 - 47.0 % [facility] Hemoglobin (Bld) [Mass/Vol] 8.6 g/dL Low 11.7 - 16.0 g/dL [facility] Interpretation and review of laboratory results Abnormal [facility] IPF 14 [facility] MCH (RBC) [Entitic mass] 28.2 pg 26.0 - 34.0 pg [facility] MCHC (RBC) [Mass/Vol] 30.7 % 30.5 - 36.0 % [facility] MCV (RBC) [Entitic vol] 91.8 fL 77.0 - 99.0 fL [facility] Platelet mean volume (Bld) [Entitic vol] [facility] Platelets (Bld) [#/Vol] 37 10*3/uL Low 140 - 440 10*3/uL [facility] RBC (Bld) [#/Vol] 3.05 10*6/uL Low 3.80 - 5.2 0 10*6/uL [facility] WBC (Bld) [#/Vol] 7.3 10*3/uL 3.6 - 10.7 10*3/uL [facility] ETHYL GLUCURONIDE SCREEN, UR INEon 05-03-2024 ETHYL GLUCURONIDE, URINE Negative Normal Negative [facility] Comment on above: Result Comment: LEOBARDO Gill COMMENTS:Ethyl Glucuronide has been screened by Immunoassay at a 500 ng/mL threshold. POSITIVE results are not confirmed by a more specific alternative method unless requested. If confirmation is needed, request confirmation under separate order.NOTE: These results are for medical treatment only. Analysis performed using non-forensic procedures.This test has not been cleared by the [place] Food and Drug Administration (FDA). The FDA has determined that such clearance or approval is not necessary. The performance characteristics have been determined by the clinical laboratories of [facility]. Performed By: #### L [id number] ####Dispatcher Service Chief: VIVIAN PANTOJA ([phone])[facility])[address] [place] [address] FERRITINon 05-03-2024 Ferritin [Mass/Vol] 415 ng/mL High 5-204 [facility] Comment on above: Result Comment: LEOBARDO R COMMENTS:Ferritin levels below 10 ng/mL have been reported as indicative of iron deficiency anemia. Performed By: #### L AB68, LAB15 ####Dispatcher Service Chief: VIVIAN PANTOJA ([phone])[facility])[address] [place] [address] FOLATEon 05-03-2024 FOLATE RESULT 3.7 ng/mL Low 7.0-31.4 [facility] Comment on above: Performed By: #### L AB69, [id number], [id number] ####Dispatcher Service Chief: VIVIAN PANTOJA ([phone])[facility] ([facility])[address] [place] [address] Ferritin [Mass/Vol]on 2024 Interpretation and review of laboratory results Abnormal [facility] Folate [Mass/Vol]on 05-03-19 Interpretation and review of laboratory results Abnormal [facility] HCV Ab IA Qlon 05-03-2024 [facility] HEPATITIS C ANTIBODYon 05-03 HCV Ab IA Ql Not detected Normal Not Detected [facility] Comment on above: Result Comment: Nancy ents with DETECTED Hepatitis C Ab results should have a new specimen submitted for supplemental testing with a Hepatitis C Quantitative RNA assay (viral load), if clinically indicated. Performed By: #### L [id number] ####Dispatcher Service Chief: VIVIAN PANTOJA ([phone])[facility])[address] [place] [address] IRON AND TIBCon 05-03-2024 IRON BINDING CAPACITY 157 ug/dL Low 250-450 [facility] Comment on above: Performed By: #### L [id number] ####Dispatcher Service Chief: VIVIAN PANTOJA ([phone])[facility])[address] [place] [address] IRON SATURATION 16.6 % Low 20.0-50.0 [facility] Comment on above: Performed By: #### L [id number] ####Dispatcher Service Chief: VIVIAN PANTOJA ([phone])[facility])[address] [place] [address] IRON, TOTAL 26 ug/dL Low 50-170 [facility] Comment on above: Result Comment: TCSi gnificant interference from hemolysis. Result integrity compromised. Interpret with caution. Performed By: #### L [id number] ####Dispatcher Service Chief: VIVIAN PANTOJA ([phone])[address] Iron and Iron binding capaci ty panelon 05-03-2024 Interpretation and review of laboratory results Abnormal [facility] Iron [Mass/Vol] 26 ug/dL Low 50 - 170 ug/dL [facility] Iron binding capacity [Mass/Vol] 157 ug/dL Low 250 - 450 ug/dL [facility] Iron saturation [Mass fraction] 16.6 % Low 20.0 - 50.0 % [facility] LACTIC ACID WITH REFLEXon Lactate [Moles/Vol] 1.0 mmol/L Normal 0.5-2.2 [facility] Comment on above: Performed By: #### L [id number] ####Dispatcher Service Chief: VIVIAN PANTOJA ([phone])[facility])[address] [place] [address] Laboratory - Chemistry and C hemistry - challengeon 05-03-2024 Folate [Mass/Vol] 3.7 ng/mL Low 7.0 - 31.4 ng/mL [facility] Procalcitonin [Mass/Vol] 0.16 ng/mL High NINF - 0.07 ng/mL [facility] Ferritin [Mass/Vol] 415 ng/mL High 5 - 204 ng/mL [facility] Lactate [Moles/Vol] 1 mmol/L 0.5 - 2. 2 mmol/L [facility] Base excess Calc (BldV) [Moles/Vol] 2.2 mmol/L -3.0 - 3.0 mmol/L [facility] CO2 (BldV) [Partial pressure] 67.7 mm[Hg] High [facility] CO2 [Moles/Vol] 32.3 mmol/L High 24.0 - 28.0 mmol/L [facility] HCO3 (Bld) [Moles/Vol] 30.2 mmol/L High 23.0 - 27.0 mmol/L [facility] Oxygen (BldV) [Partial pressure] 51.7 mm[Hg] mm Hg [facility] pH (BldV) 7.267 [pH] Low 7.330 - 7.430 [facility] Laboratory - Chemistry and C hemistry - challengeOrdered By: Obey Rodríguez on 05-03-2024 Base excess Calc (BldV) [Moles/Vol] 1.7 mmol/L -3.0 - 3.0 mmol/L [facility] CO2 (BldV) [Partial pressure] 65.9 mm[Hg] High [facility] CO2 [Moles/Vol] 31.6 mmol/L High 24.0 - 28.0 mmol/L [facility] HCO3 (Bld) [Moles/Vol] 29.6 mmol/L High 23.0 - 27.0 mmol/L [facility] Oxygen (BldV) [Partial pressure] 46.1 mm[Hg] mm Hg [facility] pH (BldV) 7.27 [pH] Low 7.330 - 7.430 [facility] Laboratory - Hematology and Cell countsOrdered By: Obey Rodríguez on 05-03-2024 Hemoglobin (Bld) [Mass/Vol] 10 g/dL Screen only [facility] Laboratory - Hematology and Cell countson 05-03-2024 Hemoglobin (Bld) [Mass/Vol] 9.8 g/dL Screen only [facility] Laboratory - Microbiology an d Antimicrobial susceptibilityon 05-03-2024 HCV Ab IA Ql Not detected Not Detected [facility] MRSA BY PCRon 05-03-2024 MRSA BY PCR Normal [facility] System [facility] Comment on above: Performed By: #### L [id number] ####Dispatcher Service Chief: VIVIAN PANTOJA ([phone])[facility] ([address] MRSA DNA STEPHANIE+probe Ql (Nose) on 05-03-2024 Interpretation and review of laboratory results Abnormal [facility] mecA gene Not detected Not Detected [facility] Staphylococcus aureus Detected Abnormal Not Detected S [facility] No Panel InformationOrdered By: Geraldine Lopez on 05-03-2024 ETHYL GLUCURONIDE, URINE Negative Negative [facility] No Panel Informationon 05-03 Interpretation and review of laboratory results Normal [facility] Extra Tube Hold for add-ons. [facility] Interpretation and review of laboratory results Normal [facility] Interpretation and review of laboratory results Abnormal [facility] Source Of Oxygen ETT [facility] No Panel InformationOrdered By: Obey Rodríguez on 05-03-2024 Interpretation and review of laboratory results Abnormal [facility] Source Of Oxygen 40% Oxygen [facility] No Panel InformationOrdered By: Vipul Phoenix on 05-03-2024 Legionella pneumophila Ag Not detected Not Detected [facility] Streptococcus pneumoniae Ag Not detected Not Detected [facility] PROCALCITONIN TESTon 025 PROCALCITONIN 0.16 ng/mL High <0.07 [facility] Comment on above: Result Comment: LYDIAE R COMMENTS:PCT <0.50 = Low risk of severe sepsis and/or septic shock.PCT >2.00 = High risk of severe sepsis and/or septic shock. Performed By: #### L AB69, [id number], [id number] ####Dispatcher Service Chief: VIVIAN PANTOJA ([phone])[address] Procalcitonin [Mass/Vol]on 0 05-03-2024 Interpretation and review of laboratory results Abnormal [facility] Progress Noteon 05-03-2024 Progress Note Normal [facility] Progress Note Vancomycin therapy h as been discontinued by Dr. Alin José on 06/10/34. Thank you for the consult. Pharmacy signing off for vancomycin dosing. Estephania Clayton formerly [facility], Date: 05/03/24 Time: 11:03 AM Normal [facility] Progress Note Normal [facility] Progress Note Normal [facility] Progress Note Normal [facility] Progress Note Normal [facility] Respiratory pathogens DNA an d RNA panel STEPHANIE+non-probe (Nph)on 05-03-2024 Adenovirus Not detected Not Detected [facility] B. pertussis DNA STEPHANIE+probe Ql (Unsp spec) Not detected Not Detected [facility] Bordetella parapertussis Not detected Not Detected [facility] Chlamydia pneumoniae Not detected Not Detected [facility] Coronavirus 229E Not detected Not Detected [facility] Coronavirus HKU1 Not detected Not Detected [facility] Coronavirus NL63 Not detected Not Detected [facility] Coronavirus OC43 Not detected Not Detected [facility] FLUAV RNA STEPHANIE+non-probe Ql (Nph) Detected Abnormal Not Detected [facility] FLUBV RNA STEPHANIE+non-probe Ql (Nph) Not detected Not Detected [facility] Human Metapneumovirus Not detected Not Detected [facility] Human Rhinovirus/Enterovirus Not detected Not Detected [facility] Interpretation and review of laboratory results Abnormal [facility] Mycoplasma pneumoniae Not detected Not Detected [facility] Parainfluenza 1 Not detected Not Detected [facility] Parainfluenza 2 Not detected Not Detected [facility] Parainfluenza 3 Not detected Not Detected [facility] Parainfluenza 4 Not detected Not Detected [facility] Respiratory Syncytial Virus Not detected Not Detected [facility] SARS-CoV-2 (COVID-19) RNA STEPHANIE+non-probe Ql (Nph) Not detected Not Detected [facility] Vital signsOrdered By: Alfredo Rodríguez on 05-03-2024 Oxygen saturation in Venous blood 75.3 % [facility] Vital signson 05-03-2024 Oxygen saturation in Venous blood 80.3 % [facility] 30on 05-02-2024 30 Normal [facility] 36on 05-02-2024 36 Currently admitted Normal [facility] BASIC METABOLIC PANELon 04-15 Anion gap [Moles/Vol] 8 mmol/L Normal 3-13 [facility] Comment on above: Performed By: #### L AB15 ####Dispatcher Service Chief: VIVIAN PANTOJA ([phone])[facility] ([address] Calcium [Mass/Vol] 8.7 mg/dL Low 8.8-10.0 [facility] Comment on above: Performed By: #### L AB15 ####Dispatcher Service Chief: VIVIAN PANTOJA ([phone])[facility])[address] [place] [address] Chloride [Moles/Vol] 113 mmol/L High 98-107 [facility] Comment on above: Performed By: #### L AB15 ####Dispatcher Service Chief: VIVIAN PANTOJA ([phone])[facility])[address] [place] [address] CO2 [Moles/Vol] 25 mmol/L Normal 23-31 [facility] Comment on above: Performed By: #### L AB15 ####Dispatcher Service Chief: VIVIAN PANTOJA ([phone])[facility])[address] [place] [address] Creatinine [Mass/Vol] 0.69 mg/dL Normal 0.57-1.11 [facility] Comment on above: Performed By: #### L AB15 ####Dispatcher Service Chief: VIVIAN PANTOJA ([phone])[facility])[address] [place] [address] GLOMERULAR FILTRATION RATE ML/MIN/1.73 SQ M.PREDICTED >90.0 Normal >60.0 [facility] Comment on above: Result Comment: Calc ulation based on the Chronic Kidney Disease Epidemiology Collaboration (CKD-EPI) equation refit without adjustment for race Performed By: #### L AB15 ####Dispatcher Service Chief: VIVIAN PANTOJA ([phone])[facility])[address] [place] [address] Glucose [Mass/Vol] 108 mg/dL Normal 82-115 [facility] Comment on above: Performed By: #### L AB15 ####Dispatcher Service Chief: VIVIAN PANTOJA ([phone])[facility])[address] [place] [address] Potassium [Moles/Vol] 4.2 mmol/L Normal 3.5-5.1 [facility] Comment on above: Result Comment: [facility] potassium values may be up to 0.5 mmol/L lower than serum values. Performed By: #### L AB15 ####Dispatcher Service Chief: VIVIAN PANTOJA ([phone])[facility])[address] [place] [address] Sodium [Moles/Vol] 146 mmol/L High 136-145 [facility] Comment on above: Performed By: #### L AB15 ####Dispatcher Service Chief: VIVIAN PANTOJA ([phone])[facility])[address] [place] [address] Urea nitrogen [Mass/Vol] 13 mg/dL Normal 9-23 [facility] Comment on above: Performed By: #### L AB15 ####Dispatcher Service Chief: VIVIAN PANTOJA ([phone])[facility])[address] [place] [address] BLOOD GAS ARTERIALon 025 Base excess Calc (Bld) [Moles/Vol] -1.0000 mmol/L Normal -3.0-3.0 [facility] Comment on above: Performed By: #### L AB76 ####Dispatcher Service Chief: VIVIAN PANTOJA ([phone])[facility] ([facility])[address] [place] [address] CO2 [Moles/Vol] 30.3 mmol/L High 23.0-27.0 [facility] Comment on above: Performed By: #### L AB76 ####Dispatcher Service Chief: VIVIAN PANTOJA ([phone])[facility])[address] [place] [address] HCO3 (Bld) [Moles/Vol] 28.1 mmol/L High 21.0-25.0 [facility] Comment on above: Performed By: #### L AB76 ####Dispatcher Service Chief: VIVIAN PANTOJA ([phone])[facility])[address] [place] [address] Hemoglobin (Bld) [Mass/Vol] 11.4 g/dL Normal Screen only [facility] Comment on above: Performed By: #### L AB76 ####Dispatcher Service Chief: VIVIAN [phone])[facility])[address] [place] [address] OXYGEN SATURATION (%) IN ARTERIAL BLOOD 95.8 % Normal 95.0-100.0 [facility] Comment on above: Performed By: #### L AB76 ####Dispatcher Service Chief: VIVIAN PANTOJA ([phone])[facility])[address] [place] [address] PCO2 ARTERIAL 71.3 mm Hg High >35.0-<45.0 [facility] Comment on above: Performed By: #### L AB76 ####Dispatcher Service Chief: VIVIAN PANTOJA ([phone])[facility])[address] [place] [address] PH ARTERIAL 7.213 Low 7.350-7.450 [facility] Comment on above: Performed By: #### L AB76 ####Dispatcher Service Chief: VIVIAN PANTOJA ([phone])[facility])[address] [place] [address] PO2 ARTERIAL 100.6 mm Hg High 80.0-100.0 [facility] Comment on above: Performed By: #### L AB76 ####Dispatcher Service Chief: VIVIAN PANTOJA ([phone])[facility])[address] [place] [address] SOURCE OF OXYGEN Nasal cannula Normal [facility] Comment on above: Result Comment: 4 Performed By: #### L AB76 ####Dispatcher Service Chief: VIVIAN PANTOJA ([phone])[facility])[address] [place] [address] BLOOD GAS, VENOUSon 05-02-19 25 Base excess Calc (BldV) [Moles/Vol] -2.0000 mmol/L Normal -3.0-3.0 [facility] Comment on above: Performed By: #### L AB79 ####Dispatcher Service Chief: VIVIAN PANTOJA ([phone])[facility])[address] [place] [address] CO2 [Moles/Vol] 29.0 mmol/L High 24.0-28.0 [facility] Comment on above: Performed By: #### L AB79 ####Dispatcher Service Chief: VIVIAN PANTOJA ([phone])[facility])[address] [place] [address] HCO3 (Bld) [Moles/Vol] 26.8 mmol/L Normal 23.0-27.0 [facility] Comment on above: Performed By: #### L AB79 ####Dispatcher Service Chief: VIVIAN PANTOJA ([phone])[facility])[address] [place] [address] Hemoglobin (Bld) [Mass/Vol] 9.4 g/dL Normal Screen only [facility] Comment on above: Performed By: #### L AB79 ####Dispatcher Service Chief: VIVIAN PANTOJA ([phone])[facility])[address] [place] [address] OXYGEN (MM HG) IN VENOUS BLOOD 42.8 mm Hg Normal [facility] Comment on above: Performed By: #### L AB79 ####Dispatcher Service Chief: VIVIAN PANTOJA ([phone])[facility])[address] [place] [address] OXYGEN SATURATION (%) IN VENOUS BLOOD 66.4 % Normal [facility] Comment on above: Performed By: #### L AB79 ####Dispatcher Service Chief: VIVIAN PANTOJA ([phone])[facility])[address] [place] [address] PCO2, CHA 70.8 mm Hg High 40.0-55.0 [facility] Comment on above: Performed By: #### L AB79 ####Dispatcher Service Chief: VIVIAN PANTOJA ([phone])[facility])[address] [place] [address] PH VENOUS 7.196 Low 7.330-7.430 [facility] Comment on above: Performed By: #### L AB79 ####Dispatcher Service Chief: VIVIAN PANTOJA ([phone])[facility])[address] [place] [address] SOURCE OF OXYGEN Normal [facility] Comment on above: Result Comment: 80%O RDER COMMENTS:Assessment of oxygenation is best done with an arterial blood gas determination. Reference ranges for pO2, bicarbonate, and base excess are for mixed venous blood. Specimens drawn from a peripheral vein will often have higher values. Performed By: #### L AB79 ####Dispatcher Service Chief: VIVIAN PANTOJA ([phone])[facility] ([facility])[address] [place] [address] Basic metabolic 1998 panelon 05-02-2024 Anion gap [Moles/Vol] 8 mmol/L 3 - 13 mmol/L [facility] Calcium [Mass/Vol] 8.7 mg/dL Low 8.8 - 10. 0 mg/dL [facility] Chloride [Moles/Vol] 113 mmol/L High 98 - 10 7 mmol/L [facility] CO2 [Moles/Vol] 25 mmol/L 23 - 31 mmol/L [facility] Creatinine [Mass/Vol] 0.69 mg/dL 0.57 - 1.11 mg/dL [facility] GFR/1.73 sq M.predicted (S/P/Bld) [Vol rate/Area] - PINF [facility] Glucose [Mass/Vol] 108 mg/dL 82 - 115 mg/dL [facility] Interpretation and review of laboratory results Abnormal [facility] Potassium [Moles/Vol] 4.2 mmol/L 3.5 - 5.1 mmol/L [facility] Sodium [Moles/Vol] 146 mmol/L High 136 - 145 mmol/L [facility] Urea nitrogen [Mass/Vol] 13 mg/dL 9 - 23 mg/dL [facility] CBC (HEMOGRAM)on 05-02-2024 Erythrocyte distribution width (RBC) [Ratio] 15.3 % High 11.5-15.0 [facility] Comment on above: Performed By: #### L AB294 ####Dispatcher Service Chief: VIVIAN PANTOJA ([phone])[facility] ([facility])[address] [place] [address] Hematocrit (Bld) [Volume fraction] 31.1 % Low 35.0-47.0 [facility] Comment on above: Performed By: #### L AB294 ####Dispatcher Service Chief: VIVIAN PANTOJA ([phone])[facility])[address] [place] [address] Hemoglobin (Bld) [Mass/Vol] 9.4 g/dL Low 11.7-16.0 [facility] Comment on above: Performed By: #### L AB294 ####Dispatcher Service Chief: VIVIAN PANTOJA ([phone])[facility])[address] [place] [address] IPF 15 Normal [facility] Comment on above: Performed By: #### L AB294 ####Dispatcher Service Chief: VIVIAN PANTOJA ([phone])[facility])[address] [place] [address] MCH (RBC) [Entitic mass] 27.8 pg Normal 26.0-34.0 [facility] Comment on above: Performed By: #### L AB294 ####Dispatcher Service Chief: VIVIAN PANTOJA ([phone])[facility])[address] [place] [address] MCHC 30.2 % Low 30.5-36.0 [facility] Comment on above: Performed By: #### L AB294 ####Dispatcher Service Chief: VIVIAN PANTOJA ([phone])[facility])[address] [place] [address] MCV (RBC) [Entitic vol] 92.0 fL Normal 77.0-99.0 [facility] Comment on above: Performed By: #### L AB294 ####Dispatcher Service Chief: VIVIAN PANTOJA ([phone])[facility])[address] [place] [address] Platelet mean volume (Bld) [Entitic vol] 13.4 fL High 9.0-12.7 [facility] Comment on above: Performed By: #### L AB294 ####Dispatcher Service Chief: VIVIAN PANTOJA ([id number])[facility])[address] [place] [address] Platelets (Bld) [#/Vol] 43 10*3/uL Low 140-440 [facility] Comment on above: Performed By: #### L AB294 ####Dispatcher Service Chief: VIVIAN PANTOJA ([phone])[address] RBC (Bld) [#/Vol] 3.38 10*6/uL Low 3.80-5.20 [facility] Comment on above: Performed By: #### L AB294 ####Dispatcher Service Chief: VIVIAN PANTOJA ([phone])[facility] ([facility])[address] [place] [address] WBC (Bld) [#/Vol] 6.5 10*3/uL Normal 3.6-10.7 [facility] Comment on above: Performed By: #### L AB294 ####Dispatcher Service Chief: VIVIAN PANTOJA ([phone])[address] CBC panel Auto (Bld)on 05-02 Erythrocyte distribution width (RBC) [Ratio] 15.3 % High 11.5 - 15.0 % [facility] Hematocrit (Bld) [Volume fraction] 31.1 % Low 35.0 - 47.0 % [facility] Hemoglobin (Bld) [Mass/Vol] 9.4 g/dL Low 11.7 - 16.0 g/dL [facility] Interpretation and review of laboratory results Abnormal [facility] IPF 15 [facility] MCH (RBC) [Entitic mass] 27.8 pg 26.0 - 34.0 pg [facility] MCHC (RBC) [Mass/Vol] 30.2 % Low 30.5 - 36.0 % [facility] MCV (RBC) [Entitic vol] 92 fL 77.0 - 99.0 fL [facility] Platelet mean volume (Bld) [Entitic vol] 13.4 fL High 9.0 - 12.7 fL [facility] Platelets (Bld) [#/Vol] 43 10*3/uL Low 140 - 440 10*3/uL [facility] RBC (Bld) [#/Vol] 3.38 10*6/uL Low 3.80 - 5.2 0 10*6/uL [facility] WBC (Bld) [#/Vol] 6.5 10*3/uL 3.6 - 10.7 10*3/uL [facility] Consulton 05-02-2024 Consult Normal [facility] Consult Normal [facility] D-DIMER,QUANTITATIVEon 05-02 D-DIMER, INNOVANCE 0.22 mg/L Normal <0.50 [facility] Comment on above: Result Comment: LEOBARDO Gill COMMENTS:Innovance D-Dimer values of <0.50 mg/L FEU can be used in combination with a pre-test probability model (e.g. Well's) to exclude pulmonary embolism (PE) disease, as well as an aid in the diagnosis of deep vein thrombosis (DVT). Performed By: #### L AB313 ####Dispatcher Service Chief: VIVIAN PANTOJA ([phone])[facility] ([facility])[address] [place] [address] FIBRINOGENon 05-02-2024 FIBRINOGEN 208 mg/dL Normal 200-400 [facility] Comment on above: Performed By: #### L AB314, [id number] ####Dispatcher Service Chief: VIVIAN PANTOJA ([phone])[facility] ([facility])[address] [place] [address] Fibrin D-dimer FEU (PPP) [Ma ss/Vol]on 05-02-2024 Interpretation and review of laboratory results Normal [facility] Fibrinogen Coag (PPP) [Mass/ Vol]on 05-02-2024 Interpretation and review of laboratory results Normal [facility] Laboratory - Chemistry and C hemistry - challengeOrdered By: Bisi Gimenez on 05-02-2024 Base excess Calc (BldV) [Moles/Vol] -2 mmol/L -3.0 - 3.0 mmol/L [facility] CO2 (BldV) [Partial pressure] 70.8 mm[Hg] High [facility] CO2 [Moles/Vol] 29 mmol/L High 24.0 - 28.0 mmol/L [facility] HCO3 (Bld) [Moles/Vol] 26.8 mmol/L 23.0 - 27.0 mmol/L [facility] Oxygen (BldV) [Partial pressure] 42.8 mm[Hg] mm Hg [facility] pH (BldV) 7.196 [pH] Low 7.330 - 7.430 [facility] Laboratory - Chemistry and C hemistry - challengeOrdered By: Vianca Flowers on 05-02-2024 Base excess Calc (Bld) [Moles/Vol] -1 mmol/L -3.0 - 3.0 mmol/L [facility] CO2 (Bld) [Partial pressure] 71.3 mm[Hg] High - PINF [facility] CO2 [Moles/Vol] 30.3 mmol/L High 23.0 - 27.0 mmol/L [facility] HCO3 (Bld) [Moles/Vol] 28.1 mmol/L High 21.0 - 25.0 mmol/L [facility] Oxygen (Bld) [Partial pressure] 100.6 mm[Hg] High [facility] pH (Bld) 7.213 [pH] Low 7.350 - 7.450 [facility] Laboratory - Coagulationon 0 05-02-2024 Fibrin D-dimer FEU (PPP) [Mass/Vol] 0.22 mg/L NINF - 0.50 mg/L [facility] aPTT Coag (PPP) [Time] 28 s 20.0 - 30.5 s [facility] Fibrinogen Coag (PPP) [Mass/Vol] 208 mg/dL 200 - 400 mg/dL [facility] INR Coag (PPP) [Relative time] 1.3 {INR} High 0.9 - 1.1 [facility] PT Coag (Bld) [Time] 14 s High 9.0 - 12.[address] [facility] Laboratory - Hematology and Cell countsOrdered By: Bisi Gimenez on 05-02-2024 Hemoglobin (Bld) [Mass/Vol] 9.4 g/dL Screen only [facility] Laboratory - Hematology and Cell countsOrdered By: Vianca Flowers on 05-02-2024 Hemoglobin (Bld) [Mass/Vol] 11.4 g/dL Screen only [facility] Laboratory - Microbiology an d Antimicrobial susceptibilityon 05-02-2024 FLUAV RNA STEPHANIE+probe Ql (Resp) Detected Abnormal Not Detected [facility] FLUBV RNA STEPHANIE+probe Ql (Resp) Not detected Not Detected [facility] RSV RNA STEPHANIE+probe Ql (Resp) Not detected Not Detected [facility] SARS-CoV-2 (COVID-19) RNA STEPHANIE+probe Ql (Resp) Not detected Not Detected [facility] No Panel InformationOrdered By: Bisi Gimenez on 05-02-2024 Interpretation and review of laboratory results Abnormal [facility] Source Of Oxygen [facility] No Panel Informationon 05-02 Interpretation and review of laboratory results Abnormal [facility] No Panel InformationOrdered By: Vianca Flowers on 05-02-2024 Interpretation and review of laboratory results Abnormal [facility] Source Of Oxygen Nasal cannula [facility] Nursing Noteon 05-02-2024 Nursing Note Called report to [place] [address] nurse Carly. Normal [facility] Nursing Note Normal [facility] PROTIME AND APTTon aPTT Coag (Bld) [Time] 28.0 s Normal 20.0-30.5 [facility] Comment on above: Performed By: #### L 314, [id number] ####Dispatcher Service Chief: VIVIAN PANTOJA ([phone])[address] INR Coag (PPP) [Relative time] 1.3 {INR} High 0.9-1.1 [facility] Comment on above: Result Comment: Hong mmended Anticoagulant Therapy: SEE BELOW----- INR of 2.0 - 3.0 : - Prophylaxis of Venous Thrombosis (high-risk surgery) - Treatment of Venous Thrombosis - Treatment of Pulmonary Embolism (Includes tissue heart valves, Acute Myocardial Infarction to prevent systemic embolism, Valvular Heart Disease, and Atrial Fibrillation)----- INR of 2.5 - 3.5 : - Mechanical Prosthetic Valves (high risk) - If oral anticoagulant therapy is used to prevent Myocardial Infarction Performed By: #### L AB314, [id number] ####Dispatcher Service Chief: VIVIAN PANTOJA ([phone])[facility] ([facility])[address] [place] [address] PT Coag (PPP) [Time] 14.0 s High 9.0-12.0 [facility] Comment on above: Performed By: #### L AB314, [id number] ####Dispatcher Service Chief: VIVIAN PANTOJA ([phone])[facility])[address] [place] [address] Progress Noteon 05-02-2024 Progress Note Normal [facility] Progress Note Normal [facility] Progress Note Normal [facility] RESPIRATORY PATHOGENS PANEL BY PCRon 05-02-2024 RESPIRATORY PATHOGENS PANEL BY PCR Normal [facility] Comment on above: Performed By: #### L [id number], [id number] ####Dispatcher Service Chief: VIVIAN PANTOJA ([phone])[facility] ([facility])[address] [place] [address] SARS-COV-2, FLU A/B, AND RSV COMBOon 05-02-2024 SARS-CoV-2 (COVID-19) RNA STEPHANIE+probe Ql (Unsp spec) Normal [facility] Comment on above: Performed By: #### L [id number], [id number] ####Dispatcher Service Chief: VIVIAN PANTOJA ([phone])[facility] ([facility])[address] [place] [address] SARS-CoV-2, Flu A/B, and RSV Comboon 05-02-2024 Interpretation and review of laboratory results Abnormal [facility] Vital signsOrdered By: Anais Gimenez on 05-02-2024 Oxygen saturation in Venous blood 66.4 % [facility] XR CHEST 1 VIEWon 05-02-2024 XR CHEST 1 VIEW Normal [facility] XR Chest Single viewon 05-02 [facility] Radiology Study observation (narrative) [facility] XR Chest Single viewOrdered By: Brayan Montoya on 05-02-2024 [facility] Work Phone: 30on 05-01-2024 30 Normal [facility] 30 Normal [facility] [id number] 05-01-2024 [id number] Normal [facility] [id number] 05-01-2024 [id number] Normal [facility] 36on 05-01-2024 36 Currently admitted. Normal [facility] BASIC METABOLIC PANELon 04-15 Anion gap [Moles/Vol] 7 mmol/L Normal 3-13 [facility] Comment on above: Performed By: #### L AB20, [id number], LAB15 ####Dispatcher Service Chief: VIVIAN PANTOJA ([phone])[facility] ([facility])[address] [place] [address] Calcium [Mass/Vol] 8.9 mg/dL Normal 8.8-10.0 [facility] Comment on above: Performed By: #### L AB20, [id number], LAB15 ####Dispatcher Service Chief: VIVIAN PANTOJA ([phone])[facility] ([facility])[address] [place] [address] Chloride [Moles/Vol] 113 mmol/L High 98-107 [facility] Comment on above: Performed By: #### Manpreet AB20, [id number], LAB15 ####Dispatcher Service Chief: VIVIAN PANTOJA ([phone])[facility] ([facility])[address] [place] [address] CO2 [Moles/Vol] 23 mmol/L Normal 23-31 [facility] Comment on above: Performed By: #### Manpreet AB20, [id number], LAB15 ####Dispatcher Service Chief: VIVIAN PANTOJA ([phone])[facility])[address] [place] [address] Creatinine [Mass/Vol] 0.76 mg/dL Normal 0.57-1.11 [facility] Comment on above: Performed By: #### L AB20, [id number], LAB15 ####Dispatcher Service Chief: VIVIAN PANTOJA ([phone])[facility])[address] [place] [address] [place] GLOMERULAR FILTRATION RATE ML/MIN/1.73 SQ M.PREDICTED 82.9 mL/min/1.73m*2 Normal >60.0 [facility] Comment on above: Result Comment: Calc ulation based on the Chronic Kidney Disease Epidemiology Collaboration (CKD-EPI) equation refit without adjustment for race Performed By: #### L AB20, [id number], LAB15 ####Dispatcher Service Chief: VIVIAN PANTOJA ([phone])[facility] ([facility])[address] [place] [address] Glucose [Mass/Vol] 102 mg/dL Normal 82-115 [facility] Comment on above: Performed By: #### L AB20, [id number], LAB15 ####Dispatcher Service Chief: VIVIAN PANTOJA ([phone])[facility] ([facility])[address] [place] [address] Potassium [Moles/Vol] 4.1 mmol/L Normal 3.5-5.1 [facility] Comment on above: Result Comment: [facility] potassium values may be up to 0.5 mmol/L lower than serum values. Performed By: #### L AB20, [id number], LAB15 ####Dispatcher Service Chief: VIVIAN PANTOJA ([phone])[facility] [place] [address] Sodium [Moles/Vol] 143 mmol/L Normal 136-145 [facility] Comment on above: Performed By: #### L AB20, [id number], LAB15 ####Dispatcher Service Chief: VIVIAN PANTOJA ([phone])[facility] ([facility])[address] [place] [address] Urea nitrogen [Mass/Vol] 14 mg/dL Normal 9-23 [facility] Comment on above: Performed By: #### L AB20, [id number], LAB15 ####Dispatcher Service Chief: VIVIAN PANTOJA ([phone])[facility] ([facility])[address] [place] [address] Basic metabolic 1998 panelon 05-01-2024 Anion gap [Moles/Vol] 7 mmol/L 3 - 13 mmol/L [facility] Calcium [Mass/Vol] 8.9 mg/dL 8.8 - 10. 0 mg/dL [facility] Chloride [Moles/Vol] 113 mmol/L High 98 - 10 7 mmol/L [facility] CO2 [Moles/Vol] 23 mmol/L 23 - 31 mmol/L [facility] Creatinine [Mass/Vol] 0.76 mg/dL 0.57 - 1.11 mg/dL [facility] GFR/1.73 sq M.predicted (S/P/Bld) [Vol rate/Area] 82.9 mL/min - PINF [facility] Glucose [Mass/Vol] 102 mg/dL 82 - 115 mg/dL [facility] Interpretation and review of laboratory results Abnormal [facility] Potassium [Moles/Vol] 4.1 mmol/L 3.5 - 5.1 mmol/L [facility] Sodium [Moles/Vol] 143 mmol/L 136 - 145 mmol/L [facility] Urea nitrogen [Mass/Vol] 14 mg/dL 9 - 23 mg/dL [facility] CBC (HEMOGRAM)on 05-01-2024 Erythrocyte distribution width (RBC) [Ratio] 14.9 % Normal 11.5-15.0 [facility] Comment on above: Performed By: #### L [id number] ####Dispatcher Service Chief: VIVIAN PANTOJA ([phone])[address] Hematocrit (Bld) [Volume fraction] 34.3 % Low 35.0-47.0 [facility] Comment on above: Performed By: #### L [id number] ####Dispatcher Service Chief: VIVIAN PANTOJA ([phone])[address] Hemoglobin (Bld) [Mass/Vol] 10.4 g/dL Low 11.7-16.0 [facility] Comment on above: Performed By: #### L AB294 ####Dispatcher Service Chief: VIVIAN PANTOJA ([phone])[facility])[address] [place] [address] IPF 13 Normal [facility] Comment on above: Performed By: #### L AB294 ####Dispatcher Service Chief: VIVIAN PANTOJA ([phone])[address] MCH (RBC) [Entitic mass] 28.0 pg Normal 26.0-34.0 [facility] Comment on above: Performed By: #### L AB294 ####Dispatcher Service Chief: VIVIAN PANTOJA ([phone])[facility] ([facility])[address] [place] [address] MCHC 30.3 % Low 30.5-36.0 [facility] Comment on above: Performed By: #### L AB294 ####Dispatcher Service Chief: VIVIAN PANTOJA ([phone])[facility] ([facility])[address] [place] [address] MCV (RBC) [Entitic vol] 92.2 fL Normal 77.0-99.0 [facility] Comment on above: Performed By: #### L AB294 ####Dispatcher Service Chief: VIVIAN PANTOJA ([phone])[facility])[address] [place] [address] Platelet mean volume (Bld) [Entitic vol] 13.9 fL High 9.0-12.7 [facility] Comment on above: Performed By: #### L AB294 ####Dispatcher Service Chief: VIVIAN PANTOJA ([phone])[facility] ([facility])[address] [place] [address] Platelets (Bld) [#/Vol] 59 10*3/uL Low 140-440 [facility] Comment on above: Performed By: #### L AB294 ####Dispatcher Service Chief: VIVIAN PANTOJA ([phone])[facility])[address] [place] [address] RBC (Bld) [#/Vol] 3.72 10*6/uL Low 3.80-5.20 [facility] Comment on above: Performed By: #### L AB294 ####Dispatcher Service Chief: VIVIAN PANTOJA ([phone])[facility] ([facility])[address] [place] [address] WBC (Bld) [#/Vol] 6.1 10*3/uL Normal 3.6-10.7 [facility] Comment on above: Performed By: #### L [id number] ####Dispatcher Service Chief: VIVIAN PANTOJA ([phone])[facility])[address] [place] [address] CBC panel Auto (Bld)Ordered By: Hugh Dominguez on 05-01-2024 Erythrocyte distribution width (RBC) [Ratio] 14.9 % 11.5 - 15.0 % [facility] Hematocrit (Bld) [Volume fraction] 34.3 % Low 35.0 - 47.0 % [facility] Hemoglobin (Bld) [Mass/Vol] 10.4 g/dL Low 11.7 - 16.0 g/dL [facility] Interpretation and review of laboratory results Abnormal [facility] IPF 13 [facility] MCH (RBC) [Entitic mass] 28 pg 26.0 - 34.0 pg [facility] MCHC (RBC) [Mass/Vol] 30.3 % Low 30.5 - 36.0 % [facility] MCV (RBC) [Entitic vol] 92.2 fL 77.0 - 99.0 fL [facility] Platelet mean volume (Bld) [Entitic vol] 13.9 fL High 9.0 - 12.7 fL [facility] Platelets (Bld) [#/Vol] 59 10*3/uL Low 140 - 440 10*3/uL [facility] RBC (Bld) [#/Vol] 3.72 10*6/uL Low 3.80 - 5.2 0 10*6/uL [facility] WBC (Bld) [#/Vol] 6.1 10*3/uL 3.6 - 10.7 10*3/uL [facility] Catecholamines,Frac Urineon 05-01-2024 Catecholamines Willis (U) [Interp] See Note [facility] Comment on above: TEST INFORMATION: Ca techolamines Fractionated, Urine Free Smaller increases in catecholamine concentrations (less than two times the upper limit) usually are the result of physiological stimuli, drugs, or improper specimen collection. Significant elevation of one or more catecholamines (three or more times the upper reference limit) is associated with an increased probability of a neuroendocrine tumor. Access complete set of age- and/or gender-specific reference intervals for this test in the [facility] (DirectRM). This test was developed and its performance characteristics determined by [facility]. It has not been cleared or approved by the US Food and Drug Administration. This test was performed in a CLIA certified laboratory and is intended for clinical purposes. Collection duration (Unsp spec) 24 hr [facility] Comment on above: Per 24h calculations are provided to aid interpretation for collections with a duration of 24 hours and an average daily urine volume. For specimens with notable deviations in collection time or volume, ratios of analytes to a corresponding urine creatinine concentration may assist in result interpretation. Creatinine (24H U) [Mass/Time] 564 mg/d 500 - 1400 mg/d [facility] Comment on above: Performed By: [facility] [address] [address] Cargo Worker: Miranda Dorman MD, PhD CLIA Number: [id number] Creatinine (U) [Mass/Vol] 182 mg/dL [facility] DOPamine (24H U) [Mass/Time] 100 ug/d 71 - 485 ug/d [facility] Comment on above: REFERENCE INTERVAL: Dopamine, Urine - ug/d Access complete set of age- and/or gender-specific reference intervals for this test in the [facility] (DirectRM). DOPamine (U) [Mass/Vol] 322 ug/L [facility] DOPamine/Creatinine (U) [Mass ratio] 177 [facility] EPINEPHrine (24H U) [Mass/Time] 1 ug/d 1 - 14 ug/d [facility] Comment on above: REFERENCE INTERVAL: Epinephrine, Urine - ug/d Access complete set of age- and/or gender-specific reference intervals for this test in the [facility] (DirectRM). EPINEPHrine (U) [Mass/Vol] 2 ug/L [facility] EPINEPHrine/Creatinine (U) [Mass ratio] 1 [facility] Norepinephrine (24H U) [Mass/Time] 15 ug/d 14 - 120 ug/d [facility] Comment on above: REFERENCE INTERVAL: Norepinephrine, Urine - ug/d Access complete set of age- and/or gender-specific reference intervals for this test in the [facility] (DirectRM). Norepinephrine (U) [Mass/Vol] 49 ug/L [facility] Norepinephrine/Creatin ine (U) [Mass ratio] 27 [facility] Specimen volume Unsp time (U) 310 mL [facility] HEPATIC FUNCTION PANELon Albumin [Mass/Vol] 3.4 g/dL Normal 3.4-4.8 [facility] Comment on above: Performed By: #### L AB20, [id number], LAB15 ####Dispatcher Service Chief: VIVIAN PANTOJA ([phone])[facility] ([facility])[address] [place] [address] ALP [Catalytic activity/Vol] 60 U/L Normal 40-150 [facility] Comment on above: Performed By: #### L AB20, [id number], LAB15 ####Dispatcher Service Chief: VIVIAN PANTOJA ([phone])[facility] ([facility])[address] [place] [address] ALT [Catalytic activity/Vol] 8 U/L Normal <30 [facility] Comment on above: Performed By: #### L AB20, [id number], LAB15 ####Dispatcher Service Chief: VIVIAN PANTOJA ([phone])[facility] ([facility])[address] [place] [address] AST [Catalytic activity/Vol] 20 U/L Normal <34 [facility] Comment on above: Performed By: #### L AB20, [id number], LAB15 ####Dispatcher Service Chief: VIVIAN PANTOJA ([phone])[facility] ([facility])[address] [place] [address] Bilirubin [Mass/Vol] 0.9 mg/dL Normal <1.2 [facility] Comment on above: Performed By: #### L AB20, [id number], LAB15 ####Dispatcher Service Chief: VIVIAN PANTOJA ([phone])[facility])[address] [place] [address] Bilirubin.indirect [Mass/Vol] 0.2 mg/dL Normal <0.5 [facility] Comment on above: Performed By: #### L AB20, [id number], LAB15 ####Dispatcher Service Chief: VIVIAN PANTOJA ([phone])[facility])[address] [place] [address] Protein [Mass/Vol] 5.6 g/dL Low 6.4-8.3 [facility] Comment on above: Result Comment: Seru m protein values are higher than plasma values. Samples from recumbent persons are lower by up to 0.5 g/dL as compared to ambulatory persons. After 60 years values are lower by up to 0.2 g/dL. Performed By: #### L AB20, [id number], LAB15 ####Dispatcher Service Chief: VIVIAN PANTOJA ([phone])[facility] [place] [address] Hepatic function 2000 panelo n 05-01-2024 Albumin [Mass/Vol] 3.4 g/dL 3.4 - 4.8 g/dL [facility] ALP [Catalytic activity/Vol] 60 U/L 40 - 150 U/L [facility] ALT [Catalytic activity/Vol] 8 U/L NINF - 30 U/L [facility] AST [Catalytic activity/Vol] 20 U/L NINF - 34 U/L [facility] Bilirubin [Mass/Vol] 0.9 mg/dL NINF - 1.2 mg/dL [facility] Bilirubin.conjugated [Mass/Vol] 0.2 mg/dL NINF - 0.5 mg/dL [facility] Interpretation and review of laboratory results Abnormal [facility] Protein [Mass/Vol] 5.6 g/dL Low 6.4 - 8.3 g/dL [facility] NT PRO BNPon 05-01-2024 Natriuretic peptide B (Bld) [Mass/Vol] 6313 pg/mL High <125 [facility] Comment on above: Performed By: #### L AB20, [id number], LAB15 ####Dispatcher Service Chief: VIVIAN PANTOJA ([phone])[facility] [place] [address] Natriuretic peptide B [Mass/ Vol]on 05-01-2024 Interpretation and review of laboratory results Abnormal [facility] Natriuretic peptide B (Bld) [Mass/Vol] 6313 pg/mL High NINF - 125 pg/mL [facility] Progress Noteon 05-01-2024 Progress Note Normal [facility] Progress Note Normal [facility] Progress Note Normal [facility] 30on 04-30-2024 30 Normal [facility] SHS 30 Normal [facility]S 30 Normal [facility] [id number] 04-30-2024 [id number] Normal [facility] [id number] Normal [facility] BASIC METABOLIC PANELon 04-15 Anion gap [Moles/Vol] 6 mmol/L Normal 3-13 [facility] Comment on above: Performed By: #### L AB103, LAB15, [id number] ####Dispatcher Service Chief: VIVIAN PANTOJA ([phone])[facility] [place] [address] Calcium [Mass/Vol] 8.6 mg/dL Low 8.8-10.0 [facility] Comment on above: Performed By: #### L AB103, LAB15, [id number] ####Dispatcher Service Chief: VIVIAN PANTOJA ([phone])[facility] ([facility])[address] [place] [address] Chloride [Moles/Vol] 115 mmol/L High 98-107 [facility] Comment on above: Performed By: #### Manpreet AB103, LAB15, [id number] ####Dispatcher Service Chief: VIVIAN PANTOJA ([phone])[facility] ([facility])[address] [place] [address] CO2 [Moles/Vol] 21 mmol/L Low 23-31 [facility] Comment on above: Performed By: #### Manpreet AB103, LAB15, [id number] ####Dispatcher Service Chief: VIVIAN PANTOJA ([phone])[facility])[address] [place] [address] Creatinine [Mass/Vol] 1.12 mg/dL High 0.57-1.11 [facility] Comment on above: Performed By: #### L AB103, LAB15, [id number] ####Dispatcher Service Chief: VIVIAN PANTOJA ([phone])[facility])[address] [place] [address] [place] GLOMERULAR FILTRATION RATE ML/MIN/1.73 SQ M.PREDICTED 52.0 mL/min/1.73m*2 Low >60.0 [facility] Comment on above: Result Comment: Calc ulation based on the Chronic Kidney Disease Epidemiology Collaboration (CKD-EPI) equation refit without adjustment for race Performed By: #### L AB103, LAB15, [id number] ####Dispatcher Service Chief: VIVIAN PANTOJA ([phone])[facility] ([facility])[address] [place] [address] Glucose [Mass/Vol] 113 mg/dL Normal 82-115 [facility] Comment on above: Performed By: #### L AB103, LAB15, [id number] ####Dispatcher Service Chief: VIVIAN PANTOJA ([phone])[facility] ([facility])[address] [place] [address] Potassium [Moles/Vol] 3.6 mmol/L Normal 3.5-5.1 [facility] Comment on above: Result Comment: [facility] potassium values may be up to 0.5 mmol/L lower than serum values. Performed By: #### L AB103, LAB15, [id number] ####Dispatcher Service Chief: VIVIAN PANTOJA ([phone])[facility] ([facility])[address] [place] [address] Sodium [Moles/Vol] 142 mmol/L Normal 136-145 [facility] Comment on above: Performed By: #### L AB103, LAB15, [id number] ####Dispatcher Service Chief: VIVIAN PANTOJA ([phone])[facility] ([facility])[address] [place] [address] Urea nitrogen [Mass/Vol] 20 mg/dL Normal 9-23 [facility] Comment on above: Performed By: #### L AB103, LAB15, [id number] ####Dispatcher Service Chief: VIVIAN PANTOJA ([phone])[facility])[address] [place] [address] Basic metabolic 1998 panelon 04-30-2024 Anion gap [Moles/Vol] 6 mmol/L 3 - 13 mmol/L [facility] Calcium [Mass/Vol] 8.6 mg/dL Low 8.8 - 10. 0 mg/dL [facility] Chloride [Moles/Vol] 115 mmol/L High 98 - 10 7 mmol/L [facility] CO2 [Moles/Vol] 21 mmol/L Low 23 - 31 mmol/L [facility] Creatinine [Mass/Vol] 1.12 mg/dL High 0.57 - 1.11 mg/dL [facility] GFR/1.73 sq M.predicted (S/P/Bld) [Vol rate/Area] 52 mL/min Low - PINF [facility] Glucose [Mass/Vol] 113 mg/dL 82 - 115 mg/dL [facility] Potassium [Moles/Vol] 3.6 mmol/L 3.5 - 5.1 mmol/L [facility] Sodium [Moles/Vol] 142 mmol/L 136 - 145 mmol/L [facility] Urea nitrogen [Mass/Vol] 20 mg/dL 9 - 23 mg/dL [facility] CBC (HEMOGRAM)on 04-30-2024 Erythrocyte distribution width (RBC) [Ratio] 15.2 % High 11.5-15.0 [facility] Comment on above: Performed By: #### L AB294 ####Dispatcher Service Chief: VIVIAN PANTOJA ([phone])[address] Hematocrit (Bld) [Volume fraction] 31.4 % Low 35.0-47.0 [facility] Comment on above: Performed By: #### L AB294 ####Dispatcher Service Chief: VIVIAN PANTOJA ([phone])[address] Hemoglobin (Bld) [Mass/Vol] 9.7 g/dL Low 11.7-16.0 [facility] Comment on above: Performed By: #### L AB294 ####Dispatcher Service Chief: VIVIAN PANTOJA ([phone])[facility])[address] [place] [address] IPF 9 Normal [facility] Comment on above: Performed By: #### L AB294 ####Dispatcher Service Chief: VIVIAN PANTOJA ([phone])[address] MCH (RBC) [Entitic mass] 28.0 pg Normal 26.0-34.0 [facility] Comment on above: Performed By: #### L AB294 ####Dispatcher Service Chief: VIVIAN [phone])[facility] ([facility])[address] [place] [address] MCHC 30.9 % Normal 30.5-36.0 [facility] Comment on above: Performed By: #### L AB294 ####Dispatcher Service Chief: VIVIAN PANTOJA ([phone])[facility])[address] [place] [address] MCV (RBC) [Entitic vol] 90.5 fL Normal 77.0-99.0 [facility] Comment on above: Performed By: #### L AB294 ####Dispatcher Service Chief: VIVIAN PANTOJA ([phone])[facility])[address] [place] [address] Platelet mean volume (Bld) [Entitic vol] 13.0 fL High 9.0-12.7 [facility] Comment on above: Performed By: #### L AB294 ####Dispatcher Service Chief: VIVIAN PANTOJA ([phone])[facility] ([facility])[address] [place] [address] Platelets (Bld) [#/Vol] 77 10*3/uL Low 140-440 [facility] Comment on above: Performed By: #### L AB294 ####Dispatcher Service Chief: VIVIAN PANTOJA ([phone])[facility])[address] [place] [address] RBC (Bld) [#/Vol] 3.47 10*6/uL Low 3.80-5.20 [facility] Comment on above: Performed By: #### L AB294 ####Dispatcher Service Chief: VIVIAN PANTOJA ([phone])[facility])[address] [place] [address] WBC (Bld) [#/Vol] 8.7 10*3/uL Normal 3.6-10.7 [facility] Comment on above: Performed By: #### L AB294 ####Dispatcher Service Chief: VIVIAN PANTOJA ([phone])[facility])[address] [place] [address] CBC panel Auto (Bld)on 04-30 Erythrocyte distribution width (RBC) [Ratio] 15.2 % High 11.5 - 15.0 % [facility] Hematocrit (Bld) [Volume fraction] 31.4 % Low 35.0 - 47.0 % [facility] Hemoglobin (Bld) [Mass/Vol] 9.7 g/dL Low 11.7 - 16.0 g/dL [facility] Interpretation and review of laboratory results Abnormal [facility] IPF 9 [facility] MCH (RBC) [Entitic mass] 28 pg 26.0 - 34.0 pg [facility] MCHC (RBC) [Mass/Vol] 30.9 % 30.5 - 36.0 % [facility] MCV (RBC) [Entitic vol] 90.5 fL 77.0 - 99.0 fL [facility] Platelet mean volume (Bld) [Entitic vol] 13 fL High 9.0 - 12.7 fL [facility] Platelets (Bld) [#/Vol] 77 10*3/uL Low 140 - 440 10*3/uL [facility] RBC (Bld) [#/Vol] 3.47 10*6/uL Low 3.80 - 5.2 0 10*6/uL [facility] WBC (Bld) [#/Vol] 8.7 10*3/uL 3.6 - 10.7 10*3/uL [facility] ECG 12-LEADon 04-30-2024 ECG 12-LEAD IMPRESSION: Atrial fibrillation BASELINE ARTIFACT Low voltage, extremity and precordial leads Minimal ST depression, diffuse leads Electronically Signed On 04-30-2024 07:30:03 EST by Ovidio Bejarano Normal [facility] Laboratory - Chemistry and C hemistry - challengeon 04-30-2024 Magnesium [Mass/Vol] 1.5 mg/dL Low 1.6 - 2 .6 mg/dL [facility] MAGNESIUMon 04-30-2024 Magnesium [Mass/Vol] 1.5 mg/dL Low 1.6-2.6 [facility] Comment on above: Result Comment: LEOBARDO Gill COMMENTS:Higher values can be expected in females during menses. Performed By: #### L AB103, LAB15, [id number] ####Dispatcher Service Chief: VIVIAN PANTOJA ([phone])[facility] ([facility])[address] [place] [address] [place] Magnesium [Mass/Vol]on 04-30 Interpretation and review of laboratory results Abnormal [facility] NT PRO BNPon 04-30-2024 Natriuretic peptide B (Bld) [Mass/Vol] 6267 pg/mL High <125 [facility] Comment on above: Performed By: #### L AB103, LAB15, [id number] ####Dispatcher Service Chief: VIVIAN PANTOJA ([phone])[facility] ([facility])[address] [place] [address] [place] Natriuretic peptide B [Mass/ Vol]on 04-30-2024 Natriuretic peptide B (Bld) [Mass/Vol] 6267 pg/mL High NINF - 125 pg/mL [facility] No Panel InformationOrdered By: Ovidio Bejarano on 04-30-2024 P [place] 0 degrees [facility] Work Phone: [place] Interval 0 ms [facility] Work Phone: QRS [place] 91 degrees [facility] Work Phone: QRSD Interval 80 ms [facility] Work Phone: QT Interval 309 ms [facility] Work Phone: QTC Interval 328 ms [facility] Work Phone: T Wave [place] 213 degrees [facility] Work Phone: [facility] Work Phone: No Panel Informationon 04-30 CV EPIPHANY [facility] P [place] 0 degrees [facility] [place] Interval 0 ms [facility] QRS [place] 78 degrees [facility] QRSD Interval 77 ms [facility] QT Interval 275 ms [facility] QTC Interval 321 ms [facility] T Wave [place] 252 degrees [facility] CV EPIPHANY [facility] Interpretation and review of laboratory results Abnormal [facility] Progress Noteon 04-30-2024 Progress Note Normal [facility] Progress Note Normal [facility] Progress Note Normal [facility] Progress Note Normal [facility] VMA, urineon 04-30-2024 Collection duration (Unsp spec) 24 hr [facility] Comment on above: Per 24h calculations are provided to aid interpretation for collections with a duration of 24 hours and an average daily urine volume. For specimens with notable deviations in collection time or volume, ratios of analytes to a corresponding urine creatinine concentration may assist in result interpretation. Creatinine (24H U) [Mass/Time] 564 mg/d 500 - 1400 mg/d [facility] Creatinine (U) [Mass/Vol] 182 mg/dL [facility] Specimen volume Unsp time (U) 310 mL [facility] Vanillylmandelate (24H U) [Mass/Time] 1.9 mg/d 0.0 - 7.0 mg/d [facility] Vanillylmandelate (U) [Mass/Vol] 6.2 mg/L [facility] Vanillylmandelate and Creatinine Willis (24H U) [Interp] See Note [facility] Comment on above: INTERPRETIVE INFORMA TION: Vanillylmandelic Acid (VMA), Urine Vanillylmandelic acid (VMA) results are expressed as a ratio to creatinine excretion (mg/g [employer]). No reference interval is available for results reported in units of mg/L. Slight or moderate increases in catecholamine metabolites may be due to extreme anxiety, essential hypertension, intense physical exercise, or drug interactions. Significant increase of one or more catecholamine metabolites (several times the upper reference limit) is associated with an increased probability of a secreting neuroendocrine tumor. This test was developed and its performance characteristics determined by [facility]. It has not been cleared or approved by the [place] Food and Drug Administration. This test was performed in a CLIA certified laboratory and is intended for clinical purposes. Vanillylmandelate/Crea tinine (24H U) [Mass ratio] 3 [facility] Comment on above: REFERENCE INTERVAL: VMA, Urine mg/g [employer] Access complete set of age- and/or gender-specific reference intervals for this test in the [facility] (DirectRM). Performed By: [facility] [address] [place] [id number] Cargo Worker: Miranda Dorman MD, PhD CLIA Number: [id number] [facility] Vital signsOrdered By: Ovidio Bejarano on 04-30-2024 Heart rate 67 /min bpm [facility] Work Phone: Vital signson 02-16-2025 Heart rate 82 /min bpm [facility] 30on 04-29-2024 30 Normal [facility] 30 Normal [facility] 30 Normal [facility] 36on 04-29-2024 36 Pt known to Tony. Was scheduled for follow up but pt canceled. Hx of microhematuria and adrenal lesions. Needs follow up rescheduled. Thanks! Normal [facility] ALDOSTERONE (BKR QUEST)on QUEST ALDOSTERONE, LC/MS/MS <1 Normal [facility] Comment on above: Result Comment: Unab le to flag abnormal result(s), please refer to reference range(s) below:Adult Reference Ranges for Aldosterone, LC/MS/MS: Upright 8:00 - 10:00 am < or = 28 ng/dL Upright 4:00 - 6:00 pm < or = 21 ng/dL Supine 8:00 - 10:00 am 3 - 16 ng/dLThis test was developed and its analytical performancecharacteristics have been determined by [employer] [place], [place]. It hasnot been cleared or approved by the U.S. Food and DrugAdministration. This assay has been validated pursuantto the CLIA regulations and is used for clinicalpurposes.Test Performed by [facility],[employer] [facility],[address] [place] [id number] Brown M.D., Ph.D., Director of [phone], CLIA [id number] Performed By: #### L AB557 ####[employer] ([employer])[address] [place] [address] [facility] BASIC METABOLIC PANELon 04-15 Anion gap [Moles/Vol] 6 mmol/L Normal 3-13 [facility] Comment on above: Performed By: #### L AB61, [id number], LAB15 ####Dispatcher Service Chief: VIVIAN PANTOJA ([phone])[facility] ([facility])[address] [place] [address] Calcium [Mass/Vol] 8.5 mg/dL Low 8.8-10.0 [facility] Comment on above: Performed By: #### L AB61, [id number], LAB15 ####Dispatcher Service Chief: VIVIAN PANTOJA ([phone])[facility] ([facility])[address] [place] [address] Chloride [Moles/Vol] 116 mmol/L High 98-107 [facility] Comment on above: Performed By: #### L AB61, [id number], LAB15 ####Dispatcher Service Chief: VIVIAN PANTOJA ([phone])[facility] [place] [address] CO2 [Moles/Vol] 21 mmol/L Low 23-31 [facility] Comment on above: Performed By: #### Manpreet AB61, [id number], LAB15 ####Dispatcher Service Chief: VIVIAN PANTOJA ([phone])[facility] ([facility])[address] [place] [address] Creatinine [Mass/Vol] 1.51 mg/dL High 0.57-1.11 [facility] Comment on above: Performed By: #### Manpreet AB61, [id number], LAB15 ####Dispatcher Service Chief: VIVIAN PANTOJA ([phone])[facility] ([facility])[address] [place] [address] [place] GLOMERULAR FILTRATION RATE ML/MIN/1.73 SQ M.PREDICTED 36.4 mL/min/1.73m*2 Low >60.0 [facility] Comment on above: Result Comment: Calc ulation based on the Chronic Kidney Disease Epidemiology Collaboration (CKD-EPI) equation refit without adjustment for race Performed By: #### L AB61, [id number], LAB15 ####Dispatcher Service Chief: VIVIAN PANTOJA ([phone])[facility] ([facility])[address] [place] [address] [place] Glucose [Mass/Vol] 81 mg/dL Low 82-115 [facility] Comment on above: Performed By: #### L AB61, [id number], LAB15 ####Dispatcher Service Chief: VIVIAN PANTOJA ([phone])[facility] COMPANY)[address] [place] [address] [place] Potassium [Moles/Vol] 3.8 mmol/L Normal 3.5-5.1 [facility] Comment on above: Result Comment: [facility] potassium values may be up to 0.5 mmol/L lower than serum values. Performed By: #### L AB61, [id number], LAB15 ####Dispatcher Service Chief: VIVIAN PANTOJA ([phone])[facility] ([facility])[address] [place] [address] Sodium [Moles/Vol] 143 mmol/L Normal 136-145 [facility] Comment on above: Performed By: #### L AB61, [id number], LAB15 ####Dispatcher Service Chief: VIVIAN PANTOJA ([phone])[facility] ([facility])[address] [place] [address] Urea nitrogen [Mass/Vol] 25 mg/dL High 9-23 [facility] Comment on above: Performed By: #### L AB61, [id number], LAB15 ####Dispatcher Service Chief: VIVIAN PANTOJA ([phone])[facility] [place] [address] Bacteria identified Cx Nom ( U)Ordered By: Spencer Guadalupe on 04-29-2024 Interpretation and review of laboratory results Normal [facility] Basic metabolic 1998 panelon 04-29-2024 Anion gap [Moles/Vol] 6 mmol/L 3 - 13 mmol/L [facility] Calcium [Mass/Vol] 8.5 mg/dL Low 8.8 - 10. 0 mg/dL [facility] Chloride [Moles/Vol] 116 mmol/L High 98 - 10 7 mmol/L [facility] CO2 [Moles/Vol] 21 mmol/L Low 23 - 31 mmol/L [facility] Creatinine [Mass/Vol] 1.51 mg/dL High 0.57 - 1.11 mg/dL [facility] GFR/1.73 sq M.predicted (S/P/Bld) [Vol rate/Area] 36.4 mL/min Low - PINF [facility] Glucose [Mass/Vol] 81 mg/dL Low 82 - 115 mg/dL [facility] Interpretation and review of laboratory results Abnormal [facility] Potassium [Moles/Vol] 3.8 mmol/L 3.5 - 5.1 mmol/L [facility] Sodium [Moles/Vol] 143 mmol/L 136 - 145 mmol/L [facility] Urea nitrogen [Mass/Vol] 25 mg/dL High 9 - 23 mg/dL [facility] CBC (HEMOGRAM)on 04-29-2024 Erythrocyte distribution width (RBC) [Ratio] 15.1 % High 11.5-15.0 [facility] Comment on above: Performed By: #### L [id number] ####Dispatcher Service Chief: VIVIAN PANTOJA ([phone])[facility])[address] [place] [address] Hematocrit (Bld) [Volume fraction] 33.0 % Low 35.0-47.0 [facility] Comment on above: Performed By: #### L [id number] ####Dispatcher Service Chief: VIVIAN PANTOJA ([phone])[address] Hemoglobin (Bld) [Mass/Vol] 9.9 g/dL Low 11.7-16.0 [facility] Comment on above: Performed By: #### L [id number] ####Dispatcher Service Chief: VIVIAN PANTOJA ([phone])[address] IPF 11 Normal [facility] Comment on above: Performed By: #### L [id number] ####Dispatcher Service Chief: VIVIAN PANTOJA ([id number])[address] MCH (RBC) [Entitic mass] 27.4 pg Normal 26.0-34.0 [facility] Comment on above: Performed By: #### L [id number] ####Dispatcher Service Chief: VIVIAN [phone])[address] MCHC 30.0 % Low 30.5-36.0 [facility] Comment on above: Performed By: #### L [id number] ####Dispatcher Service Chief: VIVIAN [id number])[facility] ([facility])[address] [place] [address] MCV (RBC) [Entitic vol] 91.4 fL Normal 77.0-99.0 [facility] Comment on above: Performed By: #### L [id number] ####Dispatcher Service Chief: VIVIAN PANTOJA ([phone])[facility])[address] [place] [address] Platelet mean volume (Bld) [Entitic vol] 13.5 fL High 9.0-12.7 [facility] Comment on above: Performed By: #### L [id number] ####Dispatcher Service Chief: VIVIAN PANTOJA ([phone])[facility])[address] [place] [address] Platelets (Bld) [#/Vol] 77 10*3/uL Low 140-440 [facility] Comment on above: Performed By: #### L [id number] ####Dispatcher Service Chief: VIVIAN PANTOJA ([phone])[facility])[address] [place] [address] RBC (Bld) [#/Vol] 3.61 10*6/uL Low 3.80-5.20 [facility] Comment on above: Performed By: #### L [id number] ####Dispatcher Service Chief: VIVIAN PANTOJA ([phone])[facility])[address] [place] [address] WBC (Bld) [#/Vol] 8.6 10*3/uL Normal 3.6-10.7 [facility] Comment on above: Performed By: #### L [id number] ####Dispatcher Service Chief: VIVIAN PANTOJA ([phone])[facility])[address] [place] [address] CBC panel Auto (Bld)on 04-29 Erythrocyte distribution width (RBC) [Ratio] 15.1 % High 11.5 - 15.0 % [facility] Hematocrit (Bld) [Volume fraction] 33 % Low 35.0 - 47.0 % [facility] Hemoglobin (Bld) [Mass/Vol] 9.9 g/dL Low 11.7 - 16.0 g/dL [facility] Interpretation and review of laboratory results Abnormal [facility] IPF 11 [facility] MCH (RBC) [Entitic mass] 27.4 pg 26.0 - 34.0 pg [facility] MCHC (RBC) [Mass/Vol] 30 % Low 30.5 - 36.0 % [facility] MCV (RBC) [Entitic vol] 91.4 fL 77.0 - 99.0 fL [facility] Platelet mean volume (Bld) [Entitic vol] 13.5 fL High 9.0 - 12.7 fL [facility] Platelets (Bld) [#/Vol] 77 10*3/uL Low 140 - 440 10*3/uL [facility] RBC (Bld) [#/Vol] 3.61 10*6/uL Low 3.80 - 5.2 0 10*6/uL [facility] WBC (Bld) [#/Vol] 8.6 10*3/uL 3.6 - 10.7 10*3/uL [facility] CORTISOLon 04-29-2024 CORTISOL 7.0 ug/dL Normal 3.7-19.4 [facility] Comment on above: Result Comment: LEOBARDO Gill COMMENTS:Before 10am 4.5-22.7 ug/dLAfter 5pm 1.7-14.1 ug/dL Performed By: #### L AB61, [id number], LAB15 ####Dispatcher Service Chief: VIVIAN PANTOJA ([phone])[address] Laboratory - Chemistry and C hemistry - challengeon 04-29-2024 Cortisol [Mass/Vol] 7 ug/dL 3.7 - 19 .4 ug/dL [facility] Laboratory - Microbiology an d Antimicrobial susceptibilityOrdered By: Spencer Guadalupe on 04-29-2024 Bacteria identified Cx Nom (U) Multiple species present; probable contamination; repeat suggested [facility] NT PRO BNPon 04-29-2024 Natriuretic peptide B (Bld) [Mass/Vol] 6549 pg/mL High <125 [facility] Comment on above: Performed By: #### L AB61, [id number], LAB15 ####Dispatcher Service Chief: VIVIAN PANTOJA ([phone])[facility] ([facility])[address] [place] [address] [place] Natriuretic peptide B [Mass/ Vol]on 04-29-2024 Interpretation and review of laboratory results Abnormal [facility] Natriuretic peptide B (Bld) [Mass/Vol] 6549 pg/mL High NINF - 125 pg/mL [facility] No Panel Informationon 04-29 Interpretation and review of laboratory results Normal [facility] Progress Noteon 04-29-2024 Progress Note Normal [facility] Progress Note Normal [facility] Progress Note Normal [facility] 30on 04-28-2024 30 Normal [facility] 30 Normal [facility] BASIC METABOLIC PANELon 04-15 Anion gap [Moles/Vol] 7 mmol/L Normal 3-13 [facility] Comment on above: Performed By: #### L AB106, LAB15 ####Dispatcher Service Chief: VIVIAN PANTOJA ([phone])[facility] ([facility])[address] [place] [address] Calcium [Mass/Vol] 9.0 mg/dL Normal 8.8-10.0 [facility] Comment on above: Performed By: #### L AB106, LAB15 ####Dispatcher Service Chief: VIVIAN PANTOJA ([phone])[facility] ([facility])[address] [place] [address] [place] Chloride [Moles/Vol] 116 mmol/L High 98-107 [facility] Comment on above: Performed By: #### L AB106, LAB15 ####Dispatcher Service Chief: VIVIAN PANTOJA ([phone])[facility] ([facility])[address] [place] [address] [place] CO2 [Moles/Vol] 19 mmol/L Low 23-31 [facility] Comment on above: Performed By: #### L AB106, LAB15 ####Dispatcher Service Chief: VIVIAN PANTOJA ([phone])[facility] ([facility])[address] [place] [address] [place] Creatinine [Mass/Vol] 1.86 mg/dL High 0.57-1.11 [facility] Comment on above: Performed By: #### L AB106, LAB15 ####Dispatcher Service Chief: VIVIAN PANTOJA ([phone])[facility])[address] [place] [address] GLOMERULAR FILTRATION RATE ML/MIN/1.73 SQ M.PREDICTED 28.3 mL/min/1.73m*2 Low >60.0 [facility] Comment on above: Result Comment: Calc ulation based on the Chronic Kidney Disease Epidemiology Collaboration (CKD-EPI) equation refit without adjustment for race Performed By: #### L AB106, LAB15 ####Dispatcher Service Chief: VIVIAN PANTOJA ([phone])[address] Glucose [Mass/Vol] 87 mg/dL Normal 82-115 [facility] Comment on above: Performed By: #### L AB106, LAB15 ####Dispatcher Service Chief: VIVIAN PANTOJA ([phone])[address] Potassium [Moles/Vol] 4.1 mmol/L Normal 3.5-5.1 [facility] Comment on above: Result Comment: [facility] potassium values may be up to 0.5 mmol/L lower than serum values. Performed By: #### L AB106, LAB15 ####Dispatcher Service Chief: VIVIAN PANTOJA ([phone])[address] Sodium [Moles/Vol] 142 mmol/L Normal 136-145 [facility] Comment on above: Performed By: #### L AB106, LAB15 ####Dispatcher Service Chief: VIVIAN PANTOJA ([phone])[address] Urea nitrogen [Mass/Vol] 26 mg/dL High 9-23 [facility] Comment on above: Performed By: #### L AB106, LAB15 ####Dispatcher Service Chief: VIVIAN PANTOJA ([phone])[facility])[address] [place] [address] Basic metabolic 1998 panelon 04-28-2024 Anion gap [Moles/Vol] 7 mmol/L 3 - 13 mmol/L [facility] Calcium [Mass/Vol] 9 mg/dL 8.8 - 10. 0 mg/dL [facility] Chloride [Moles/Vol] 116 mmol/L High 98 - 10 7 mmol/L [facility] CO2 [Moles/Vol] 19 mmol/L Low 23 - 31 mmol/L [facility] Creatinine [Mass/Vol] 1.86 mg/dL High 0.57 - 1.11 mg/dL [facility] GFR/1.73 sq M.predicted (S/P/Bld) [Vol rate/Area] 28.3 mL/min Low - PINF [facility] Glucose [Mass/Vol] 87 mg/dL 82 - 115 mg/dL [facility] Interpretation and review of laboratory results Abnormal [facility] Potassium [Moles/Vol] 4.1 mmol/L 3.5 - 5.1 mmol/L [facility] Sodium [Moles/Vol] 142 mmol/L 136 - 145 mmol/L [facility] Urea nitrogen [Mass/Vol] 26 mg/dL High 9 - 23 mg/dL [facility] C. DIFFICILE BY PCR WITH REF JOMAR TO EIAon 04-28-2024 C. DIFFICILE BY PCR WITH REFLEX TO EIA C. DIFFICILE TOXIN PCR Reference Not Detected Not Detected ORDER COMMENTS: C. difficile infection is unlikely to be present. Methodology: Real-time PCR Normal [facility] Comment on above: Performed By: #### L [id number], [id number] ####Dispatcher Service Chief: VIVIAN PANTOJA ([phone])[facility] ([address] C. difficile toxin genes STEPHANIE +probe Ql (Stl)on 04-28-2024 C. difficile toxin B tcdB gene STEPHANIE+probe Ql (Stl) Not detected Not Detected [facility] Interpretation and review of laboratory results Normal [facility] CBC W Auto Differential pane l (Bld)Ordered By: Esvin Shepard on 04-28-2024 Basophils (Bld) [#/Vol] 0 10*3/uL 0.0 - 0.2 10*3/uL [facility] Basophils/100 WBC (Bld) 0.1 % 0.0 - 2.0 % [facility] Eosinophils (Bld) [#/Vol] 0 10*3/uL 0.0 - 0.5 10*3/uL [facility] Eosinophils/100 WBC (Bld) 0.1 % 0.0 - 6.0 % [facility] Erythrocyte distribution width (RBC) [Ratio] 15.1 % High 11.5 - 15.0 % [facility] Hematocrit (Bld) [Volume fraction] 36.2 % 35.0 - 47.0 % [facility] Hemoglobin (Bld) [Mass/Vol] 11.3 g/dL Low 11.7 - 16.0 g/dL [facility] Immature granulocytes (Bld) [#/Vol] 0 10*3/uL NINF - 0.1 10*3/uL [facility] Immature granulocytes/100 WBC (Bld) 0.4 % 0.0 - 2.0 % [facility] Interpretation and review of laboratory results Abnormal [facility] IPF 9 [facility] Lymphocytes (Bld) [#/Vol] 1.9 10*3/uL 1.0 - 4.3 10*3/uL [facility] Lymphocytes/100 WBC (Bld) 19.9 % 15.0 - 45.0 % [facility] MCH (RBC) [Entitic mass] 28 pg 26.0 - 34.0 pg [facility] MCHC (RBC) [Mass/Vol] 31.2 % 30.5 - 36.0 % [facility] MCV (RBC) [Entitic vol] 89.6 fL 77.0 - 99.0 fL [facility] Monocytes (Bld) [#/Vol] 2.5 10*3/uL High 0.0 - 0.9 10*3/uL [facility] Monocytes/100 WBC (Bld) 25.9 % High 5.0 - 13.0 % [facility] Neutrophils (Bld) [#/Vol] 5.2 10*3/uL 1.8 - 7.5 10*3/uL [facility] Neutrophils/100 WBC (Bld) 53.6 % 38.0 - 82.0 % [facility] Nucleated RBC/100 WBC (Bld) [Ratio] 0 % [facility] Platelet mean volume (Bld) [Entitic vol] 13.5 fL High 9.0 - 12.7 fL [facility] Platelets (Bld) [#/Vol] 83 10*3/uL Low 140 - 440 10*3/uL [facility] RBC (Bld) [#/Vol] 4.04 10*6/uL 3.80 - 5.2 0 10*6/uL [facility] WBC (Bld) [#/Vol] 9.7 10*3/uL 3.6 - 10.7 10*3/uL [facility] CBC WITH AUTO DIFFERENTIALon 04-28-2024 Basophils (Bld) [#/Vol] 0.0 10*3/uL Normal 0.0-0.2 [facility] Comment on above: Performed By: #### L [id number] ####Dispatcher Service Chief: VIVIAN PANTOJA ([phone])[facility])[address] [place] [address] Basophils/100 WBC (Bld) 0.1 % Normal 0.0-2.0 [facility] Comment on above: Performed By: #### L [id number] ####Dispatcher Service Chief: VIVIAN PANTOJA ([phone])[facility] ([facility])[address] [place] [address] Eosinophils (Bld) [#/Vol] 0.0 10*3/uL Normal 0.0-0.5 [facility] Comment on above: Performed By: #### L [id number] ####Dispatcher Service Chief: VIVIAN PANTOJA ([phone])[facility] ([facility])[address] [place] [address] Eosinophils/100 WBC (Bld) 0.1 % Normal 0.0-6.0 [facility] Comment on above: Performed By: #### L [id number] ####Dispatcher Service Chief: VIVIAN PANTOJA ([phone])[facility])[address] [place] [address] Erythrocyte distribution width (RBC) [Ratio] 15.1 % High 11.5-15.0 [facility] Comment on above: Performed By: #### L [id number] ####Dispatcher Service Chief: VIVIAN PANTOJA ([phone])[facility] [place] [address] Hematocrit (Bld) [Volume fraction] 36.2 % Normal 35.0-47.0 [facility] Comment on above: Performed By: #### L [id number] ####Dispatcher Service Chief: VIVIAN PANTOJA ([phone])[facility])[address] [place] [address] Hemoglobin (Bld) [Mass/Vol] 11.3 g/dL Low 11.7-16.0 [facility] Comment on above: Performed By: #### L [id number] ####Dispatcher Service Chief: VIVIAN PANTOJA ([phone])[facility])[address] [place] [address] IMMATURE GRANS % 0.4 % Normal 0.0-2.0 [facility] Comment on above: Performed By: #### L [id number] ####Dispatcher Service Chief: VIVIAN PANTOJA ([phone])[facility])[address] [place] [address] IMMATURE GRANS ABSOLUTE 0.0 10*3/uL Normal <0.1 [facility] Comment on above: Performed By: #### L [id number] ####Dispatcher Service Chief: VIVIAN PANTOJA ([phone])[facility])[address] [place] [address] [place] IPF 9 Normal [facility] Comment on above: Performed By: #### L [id number] ####Dispatcher Service Chief: VIVIAN PANTOJA ([phone])[facility])[address] [place] [address] Lymphocytes (Bld) [#/Vol] 1.9 10*3/uL Normal 1.0-4.3 [facility] Comment on above: Performed By: #### L [id number] ####Dispatcher Service Chief: VIVIAN PANTOJA ([phone])[facility])[address] [place] [address] Lymphocytes/100 WBC (Bld) 19.9 % Normal 15.0-45.0 [facility] Comment on above: Performed By: #### L [id number] ####Dispatcher Service Chief: VIVIAN PANTOJA ([phone])[facility])[address] [place] [address] MCH (RBC) [Entitic mass] 28.0 pg Normal 26.0-34.0 [facility] Comment on above: Performed By: #### L [id number] ####Dispatcher Service Chief: VIVIAN PANTOJA ([phone])[facility])[address] [place] [address] MCHC 31.2 % Normal 30.5-36.0 [facility] Comment on above: Performed By: #### L [id number] ####Dispatcher Service Chief: VIVIAN PANTOJA ([phone])[facility])[address] [place] [address] MCV (RBC) [Entitic vol] 89.6 fL Normal 77.0-99.0 [facility] Comment on above: Performed By: #### L [id number] ####Dispatcher Service Chief: VIVIAN PANTOJA ([phone])[facility])[address] [place] [address] Monocytes (Bld) [#/Vol] 2.5 10*3/uL High 0.0-0.9 [facility] Comment on above: Performed By: #### L [id number] ####Dispatcher Service Chief: VIVIAN PANTOJA ([phone])[facility])[address] [place] [address] Monocytes/100 WBC (Bld) 25.9 % High 5.0-13.0 [facility] Comment on above: Performed By: #### L [id number] ####Dispatcher Service Chief: VIVIAN PANTOJA ([phone])[facility])[address] [place] [address] NEUTROPHILS ABSOLUTE 5.2 10*3/uL Normal 1.8-7.5 [facility] Comment on above: Performed By: #### L [id number] ####Dispatcher Service Chief: VIVIAN PANTOJA ([phone])[facility])[address] [place] [address] Neutrophils/100 WBC (Bld) 53.6 % Normal 38.0-82.0 [facility] Comment on above: Performed By: #### L [id number] ####Dispatcher Service Chief: VIVIAN PANTOJA ([phone])[facility] ([facility])[address] [place] [address] NRBC 0.0 /100 WBCs Normal 0.0-2.0 [facility] Comment on above: Performed By: #### L [id number] ####Dispatcher Service Chief: VIVIAN PANTOJA ([phone])[facility])[address] [place] [address] Platelet mean volume (Bld) [Entitic vol] 13.5 fL High 9.0-12.7 [facility] Comment on above: Performed By: #### L [id number] ####Dispatcher Service Chief: VIVIAN PANTOJA ([phone])[facility] ([facility])[address] [place] [address] Platelets (Bld) [#/Vol] 83 10*3/uL Low 140-440 [facility] Comment on above: Performed By: #### L [id number] ####Dispatcher Service Chief: VIVIAN PANTOJA ([phone])[facility] ([facility])[address] [place] [address] RBC (Bld) [#/Vol] 4.04 10*6/uL Normal 3.80-5.20 [facility] Comment on above: Performed By: #### L [id number] ####Dispatcher Service Chief: VIVIAN PANTOJA ([phone])[facility] ([facility])[address] [place] [address] WBC (Bld) [#/Vol] 9.7 10*3/uL Normal 3.6-10.7 [facility] Comment on above: Performed By: #### L [id number] ####Dispatcher Service Chief: VIVIAN PANTOJA ([phone])[facility] ([facility])[address] [place] [address] COMPLETE URINALYSISon 2024 BACTERIA (#/HPF) IN URINE Loaded Abnormal Negative [facility] Comment on above: Performed By: #### L [id number] ####Dispatcher Service Chief: VIVIAN PANTOJA ([phone])[facility] ([facility])[address] [place] [address] BILIRUBIN, TOTAL PRESENCE IN URINE Negative Normal Negative [facility] Comment on above: Performed By: #### L [id number] ####Dispatcher Service Chief: VIVIAN PANTOJA ([phone])[facility] ([facility])[address] [place] [address] Clarity (U) Turbid Abnormal Clear [facility] Comment on above: Performed By: #### L [id number] ####Dispatcher Service Chief: VIVIAN PANTOJA ([phone])[facility] ([facility])[address] [place] [address] Color (U) Yellow Normal Lt. Yellow [facility] Comment on above: Performed By: #### L [id number] ####Dispatcher Service Chief: VIVIAN PANTOJA ([phone])[facility] ([facility])[address] [place] [address] GLUCOSE (MG/DL) IN URINE Normal Normal Normal (<70) [facility] Comment on above: Performed By: #### L [id number] ####Dispatcher Service Chief: VIVIAN PANTOJA ([phone])[facility] ([facility])[address] [place] [address] HEMOGLOBIN PRESENCE IN URINE Negative Normal Negative [facility] Comment on above: Performed By: #### L [id number] ####Dispatcher Service Chief: VIVIAN PANTOJA ([phone])[facility] ([facility])[address] [place] [address] HYALINE CASTS (#/LPF) IN URINE SEDIMENT BY MICROSCOPY 26-50 Abnormal Negative [facility] Comment on above: Performed By: #### L [id number] ####Dispatcher Service Chief: VIVIAN PANTOJA ([phone])[facility] ([facility])[address] [place] [address] Ketones Ql (U) Negative Normal Negative [facility] Comment on above: Performed By: #### L [id number] ####Dispatcher Service Chief: VIVIAN PANTOJA ([phone])[facility])[address] [place] [address] LEUKOCYTE ESTERASE PRESENCE IN URINE BY TEST STRIP Negative Normal Negative [facility] Comment on above: Performed By: #### L [id number] ####Dispatcher Service Chief: VIVIAN PANTOJA ([phone])[facility])[address] [place] [address] [place] MUCUS (#/LPF) IN URINE SEDIMENT Few Normal Negative [facility] Comment on above: Performed By: #### L [id number] ####Dispatcher Service Chief: VIVIAN PANTOJA ([phone])[facility])[address] [place] [address] NITRITE PRESENCE IN URINE Negative Normal Negative [facility] Comment on above: Performed By: #### L [id number] ####Dispatcher Service Chief: VIVIAN PANTOJA ([phone])[facility])[address] [place] [address] pH (U) 5.0 [pH] Normal 5.0-8.0 [facility] Comment on above: Performed By: #### L [id number] ####Dispatcher Service Chief: VIVIAN PANTOJA ([phone])[facility])[address] [place] [address] Protein (U) [Mass/Vol] 50 mg/dL Abnormal Negative [facility] Comment on above: Performed By: #### L [id number] ####Dispatcher Service Chief: VIVIAN PANTOJA ([phone])[facility])[address] [place] [address] [place] RBC (#/HPF) IN URINE SEDIMENT 0-2 Normal 0-2 [facility] Comment on above: Performed By: #### L [id number] ####Dispatcher Service Chief: VIVIAN PANTOJA ([phone])[facility])[address] [place] [address] Specific gravity (U) [Rel density] 1.023 Normal 1.005-1.030 [facility] Comment on above: Performed By: #### L [id number] ####Dispatcher Service Chief: VIVIAN PANTOJA ([id number])[facility] ([facility])[address] [place] [address] SQUAMOUS EPITHELIAL CELLS (#/HPF) IN URINE SEDIMENT 3-5 Normal 3-5 [facility] Comment on above: Performed By: #### L [id number] ####Dispatcher Service Chief: VIVIAN PANTOJA ([phone])[facility] ([facility])[address] [place] [address] UROBILINOGEN (MG/DL) IN URINE Normal Normal Normal (0-1) [facility] Comment on above: Performed By: #### L [id number] ####Dispatcher Service Chief: VIVIAN PANTOJA ([id number])[facility] H[facility] ([facility])[address] [place] [address] WBC (LEUKOCYTE) (#/HPF) IN URINE SEDIMENT 3-5 Normal 0-5 [facility] Comment on above: Performed By: #### L [id number] ####Dispatcher Service Chief: VIVIAN PANTOJA ([phone])[facility])[address] [place] [address] Consulton 04-28-[address] [facility] Consult Normal [facility] ECG 12-LEADon 04-28-2024 ECG 12-LEAD IMPRESSION: Atrial fibrillation BRADYCARDIA WITH IRREGULAR RATE Low voltage, extremity leads Repol abnrm suggests ischemia, anterolateral Electronically Signed On 04-28-2024 06:19:58 EST by Olman Torre [facility] ED Nursing Noteon 04-28-2024 ED Nursing Note Patient's meal tray ordered for room on 4N. Normal [facility] ED Nursing Note Pt given zofran PO a nd cranberry juice per request Normal [facility] ED Nursing Note Pt has thrown up the one bite of breakfast she ate. Pt is now nauseous and does not want to eat anymore. Pt believes she may be nauseous due to her medications. Pt was able to drink and keep down OJ Normal [facility] ED Nursing Note Pt is resting comfor tably in bed after being assisted to bedside commode. Pt urinated a small amount into hat and sent urine sample. Pt A&O x4, vitals WNL, breathing unlabored and chest rise equal. Pt denied any further needs at this time Normal [facility] ED Nursing Note Ordered pt breakfast Normal [facility] GASTROINTESTINAL PCR PANELon 04-28-2024 GASTROINTESTINAL PCR PANEL Normal [facility] Comment on above: Performed By: #### L [id number], [id number] ####Dispatcher Service Chief: VIVIAN PANTOJA ([phone])[facility] ([facility])[address] [place] [address] Gastrointestinal pathogens p linda STEPHANIE+probe (Stl)Ordered By: Wilfred Bishop on 04-28-2024 Adenovirus F 40/41 Not detected Not Detected [facility] Astrovirus Not detected Not Detected [facility] Campylobacter Not detected Not Detected [facility] Cryptosporidium Not detected Not Detected [facility] Cyclospora cayetanensis Not detected Not Detected [facility] Entamoeba histolytica Not detected Not Detected [facility] Enterotoxigenic E coli (ETEC) Not detected Not Detected [facility] Giardia lamblia Not detected Not Detected [facility] Interpretation and review of laboratory results Normal [facility] Norovirus GI/GII Not detected Not Detected [facility] Plesiomonas shigelloides Not detected Not Detected [facility] Rotavirus A Not detected Not Detected [facility] Salmonella Not detected Not Detected [facility] Sapovirus Not detected Not Detected [facility] Shiga toxin-producing E coli (STEC) Not detected Not Detected [facility] Shigella/Enteroinvasiv e E coli (EIEC) Not detected Not Detected [facility] Vibrio cholerae Not detected Not Detected [facility] Vibrio species Not detected Not Detected [facility] Yersinia enterocolitica Not detected Not Detected [facility] HIGH SENSITIVITY TROPONIN, S ERIAL, THIRD TESTon 04-28-2024 4H TROPONIN HS (SERIAL 3RD TROPONIN) 35 ng/L High <=14 [facility] Comment on above: Result Comment: Risi ng or falling troponin delta below 2 ng/L as compared to 2h troponin value suggeststhat acute cardiac injury is unlikely. Performed By: #### L [id number] ####Dispatcher Service Chief: VIVIAN PANTOJA ([id number])[facility] ([facility])[address] [place] [address] LEGIONELLA AND STREPTOCOCCUS URINE ANTIGENon 04-28-2024 LEGIONELLA AND STREPTOCOCCUS URINE ANTIGEN Normal [facility] Comment on above: Performed By: #### L [id number] ####Dispatcher Service Chief: VIVIAN PANTOJA ([phone])[facility] [place] [address] Laboratory - Chemistry and C hemistry - challengeon 04-28-2024 TSH Qn 1.29 m[IU]/L [facility] Sodium (24H U) [Mass/Vol] mmol/L mmol/L [facility] NT PRO BNPon 04-28-2024 Natriuretic peptide B (Bld) [Mass/Vol] 8620 pg/mL High <125 [facility] Comment on above: Performed By: #### L [id number], [id number] ####Dispatcher Service Chief: VIVIAN PANTOJA ([phone])[facility] ([facility])[address] [place] [address] Natriuretic peptide B [Mass/ Vol]on 04-28-2024 Interpretation and review of laboratory results Abnormal [facility] Natriuretic peptide B (Bld) [Mass/Vol] 8620 pg/mL High NINF - 125 pg/mL [facility] No Panel Informationon 04-28 Extra Tube Hold for add-ons. [facility] CREATININE, URINE 290.1 mg/dL High 47.0 - 110 .0 mg/dL [facility] Interpretation and review of laboratory results Abnormal [facility] SODIUM, URINE, FRACTIONAL EXCRETION [facility] SODIUM, URINE, TUBULAR REABSORPTION [facility] [employer] CV EPIPHANY [facility] 4h Troponin HS (Serial 3rd Troponin) 35 ng/L High NINF - 14 ng/L [facility] Interpretation and review of laboratory results Abnormal [facility] No Panel InformationOrdered By: Olman Torre on 04-28-2024 P [place] 0 degrees [facility] Work Phone: [place] Interval 0 ms [facility] Work Phone: QRS [place] 22 degrees [facility] Work Phone: QRSD Interval 84 ms [facility]: QT Inter[facility] 335 ms [facility] Work Phone: QTC Interval 309 ms [facility] Work Phone: T Wave [place] 231 degrees [facility] Work Phone: [facility] Work Phone: Nursing Noteon 04-28-2024 Nursing Note Patient came up from ED with tourniquet still in place on her LUE. Tourniquet removed. Reddish/purple marking noted on LUE. Patient denying any pain or discomfort. Normal [facility] Progress Noteon 04-28-2024 Progress Note Normal [facility] SODIUM, URINE, RANDOMon 04-15 CREATININE, URINE 290.1 mg/dL High 47.0-110.0 [facility] Comment on above: Performed By: #### L [id number] ####Dispatcher Service Chief: VIVIAN PANTOJA ([phone])[facility] [place] [address] [place] SODIUM, URINE <20 Normal [facility] Comment on above: Performed By: #### L [id number] ####Dispatcher Service Chief: VIVIAN PANTOJA ([phone])[facility] [place] [address] [place] SODIUM, URINE, FRACTIONAL EXCRETION <0.1 Normal [facility] Comment on above: Performed By: #### L [id number] ####Dispatcher Service Chief: VIVIAN PANTOJA ([phone])[facility] [place] [address] [place] SODIUM, URINE, TUBULAR REABSORPTION >1.0 Normal [facility] Comment on above: Performed By: #### L [id number] ####Dispatcher Service Chief: VIVIAN PANTOJA ([phone])[facility] ([facility])[address] [place] [address] [place] THYROID STIMULATING HORMONEo n 04-28-2024 THYROID STIMULATING HORMONE 1.29 uIU/mL Normal 0.35-4.94 [facility] Comment on above: Performed By: #### L [id number] ####Dispatcher Service Chief: VIVIAN PANTOJA ([phone])[facility] ([facility])[address] [place] [address] TSH Qnon 04-28-2024 Interpretation and review of laboratory results Normal [facility] URINE CULTUREon 04-28-2024 Bacteria identified Cx Nom (U) Normal [facility] Comment on above: Performed By: #### L [id number] ####Dispatcher Service Chief: VIVIAN PANTOJA ([phone])[facility] ([facility])[address] [place] [address] [place] Kidneyon 04-28-2024 [facility] Radiology Study observation (narrative) [facility] KidneyOrdered By: Rosalia Leiva on 04-28-2024 [facility] Work Phone: [place] RENAL COMPLETEon 04-28-19 [place] RENAL COMPLETE Normal [facility] Urinalysis complete panel (U )Ordered By: Shellie Navas on 04-28-2024 Bacteria LM.HPF (Urine sed) [#/Area] Loaded Abnormal Negative /HPF [facility] Bilirubin Ql (U) Negative Negative mg/dL [facility] Clarity (U) Turbid Abnormal Clear [facility] Color (U) Yellow Lt. Yellow [facility] Epithelial cells.squamous LM.HPF (Urine sed) [#/Area] 3-5 [facility] Glucose Ql (U) Normal Normal (<70) mg/dL [facility] Hemoglobin Ql (U) Negative Negative mg/dL [facility] Hyaline casts Auto (Urine sed) [#/Area] 26-50 Abnormal Negative /LPF [facility] Interpretation and review of laboratory results Abnormal [facility] Ketones (U) [Mass/Vol] Negative Negat ute mg/dL [facility] Leukocyte esterase Test strip Ql (U) Negative Negative Ghada/uL [facility] Mucus LM.HPF (Urine sed) [#/Area] Few Negative /LPF [facility] Nitrite Ql (U) Negative Negative [facility] pH (U) 5.0 [pH] 5.0 - 8.0 pH [facility] Protein (U) [Mass/Vol] 50 mg/dL Abnormal Negative [facility] RBC LM.HPF (Urine sed) [#/Area] 0-2 [facility] Specific gravity (U) [Rel density] 1.023 1.005 - 1.030 [facility] Urobilinogen (U) [Mass/Vol] Normal Normal (0-1) mg/dL [facility] WBC LM.HPF (Urine sed) [#/Area] 3-5 [facility] Vital signsOrdered By: Luciano in Nicho on 04-28-2024 Heart rate 51 /min bpm [facility] Work Phone: 36on 04-27-2024 36 Placed call to shari gonzalez. Unable to reach them by phone to discuss lab results. Left detailed message to return call to discuss results. Please release information to patient Normal [facility] 36 Normal [facility] 36 Normal [facility] 36 Normal [facility] BASIC METABOLIC PANELon 04-15 Anion gap [Moles/Vol] 8 mmol/L Normal - [facility] Comment on above: Performed By: #### L [id number] ####Dispatcher Service Chief: VIVIAN PANTOJA ([phone])[facility] RUDDY Peer39ARMINDA ([facility] [place] [address] Calcium [Mass/Vol] 9.4 mg/dL Normal 8.8-10.0 [facility] Comment on above: Performed By: #### L AB15 ####Dispatcher Service Chief: VIVIAN PANTOJA ([phone])[facility] [employer] ([facility])[address] [place] [address] [place] Chloride [Moles/Vol] 115 mmol/L High 98-107 [facility] Comment on above: Performed By: #### L AB15 ####Dispatcher Service Chief: VIVIAN PANTOJA ([phone])[facility]UDDY [employer] ([facility])[address] [place] [address] [place] CO2 [Moles/Vol] 20 mmol/L Low 23-31 [facility] Comment on above: Performed By: #### L AB15 ####Dispatcher Service Chief: VIVIAN PANTOJA ([id number])[facility] ([facility])[address] [place] [address] [place] Creatinine [Mass/Vol] 1.27 mg/dL High 0.57-1.11 [facility] Comment on above: Performed By: #### L AB15 ####Dispatcher Service Chief: VIVIAN PANTOJA ([phone])[facility] ([facility])[address] [place] [address] GLOMERULAR FILTRATION RATE ML/MIN/1.73 SQ M.PREDICTED 44.7 mL/min/1.73m*2 Low >60.0 [facility] Comment on above: Result Comment: Calc ulation based on the Chronic Kidney Disease Epidemiology Collaboration (CKD-EPI) equation refit without adjustment for race Performed By: #### L [id number] ####Dispatcher Service Chief: VIVIAN PANTOJA ([id number])[facility] ([facility])[address] [place] [address] Glucose [Mass/Vol] 104 mg/dL Normal 82-115 [facility] Comment on above: Performed By: #### L AB15 ####Dispatcher Service Chief: VIVIAN PANTOJA ([phone])[facility] ([facility])[address] [place] [address] Potassium [Moles/Vol] 4.2 mmol/L Normal 3.5-5.1 [facility] Comment on above: Result Comment: [facility] potassium values may be up to 0.5 mmol/L lower than serum values. Performed By: #### L AB15 ####Dispatcher Service Chief: VIVIAN PANTOJA ([phone])[facility] ([facility])[address] [place] [address] [place] Sodium [Moles/Vol] 143 mmol/L Normal 136-145 [facility] Comment on above: Performed By: #### L AB15 ####Dispatcher Service Chief: VIVIAN PANTOJA ([phone])[facility] ([facility])[address] Urea nitrogen [Mass/Vol] 25 mg/dL High 9-23 [facility] Comment on above: Performed By: #### L AB15 ####Dispatcher Service Chief: VIVIAN PANTOJA ([phone])[facility] ([facility])[address] Basic metabolic 1998 panelon 04-27-2024 Anion gap [Moles/Vol] 8 mmol/L 3 - 13 mmol/L [facility] Calcium [Mass/Vol] 9.4 mg/dL 8.8 - 10. 0 mg/dL [facility] Chloride [Moles/Vol] 115 mmol/L High 98 - 10 7 mmol/L [facility] CO2 [Moles/Vol] 20 mmol/L Low 23 - 31 mmol/L [facility] Creatinine [Mass/Vol] 1.27 mg/dL High 0.57 - 1.11 mg/dL [facility] GFR/1.73 sq M.predicted (S/P/Bld) [Vol rate/Area] 44.7 mL/min Low - PINF [facility] Comment on above: Calculation based on the Chronic Kidney Disease Epidemiology Collaboration (CKD-EPI) equation refit without adjustment for race Glucose [Mass/Vol] 104 mg/dL 82 - 115 mg/dL [facility] Interpretation and review of laboratory results Abnormal [facility] Potassium [Moles/Vol] 4.2 mmol/L 3.5 - 5.1 mmol/L [facility] Comment on above: Plasma potassium imer ues may be up to 0.5 mmol/L lower than serum values. Sodium [Moles/Vol] 143 mmol/L 136 - 145 mmol/L [facility] Urea nitrogen [Mass/Vol] 25 mg/dL High 9 - 23 mg/dL [facility] CATECHOLAMINES,FRAC URINEon 04-27-2024 CATECHOLAMINES, URINE INTERPRETATION See Note Normal [facility] Comment on above: Result Comment: TEST INFORMATION: Catecholamines Fractionated, Urine FreeSmaller increases in catecholamine concentrations (less than twotimes the upper limit) usually are the result of physiologicalstimuli, drugs, or improper specimen collection. Significantelevation of one or more catecholamines (three or more times theupper reference limit) is associated with an increased probabilityof a neuroendocrine tumor.Access complete set of age- and/or gender-specific referenceintervals for this test in the [facility] Test Directory(DirectRM).This test was developed and its performance characteristicsdetermined by [facility]. It has not been cleared orapproved by the [place] Food and Drug Administration. This test wasperformed in a CLIA certified laboratory and is intended forclinical purposes. Performed By: #### L [id number] ####[facility] ([facility])[address] DOPAMINE, URINE - PER 24H 100 ug/d Normal 71-485 [facility] Comment on above: Result Comment: REFE RENCE INTERVAL: Dopamine, Urine - ug/dAccess complete set of age- and/or gender-specific referenceintervals for this test in the [facility](DirectRM). Performed By: #### L [id number] ####[facility] ([facility])[address] DOPAMINE, URINE - PER VOLUME 322 ug/L Normal [facility] Comment on above: Performed By: #### L [id number] ####[facility] ([facility])[address] DOPAMINE, URINE - RATIO TO FLA[employer]ORING [employer]IL [employer]ER 177 ug/g [employer] Normal 0-250 [facility] Comment on above: Performed By: #### L [id number] ####[facility] ([facility])[address] EPINEPHRINE, URINE - PER 24H 1 ug/d Normal 1-14 [facility] Comment on above: Result Comment: REFE RENCE INTERVAL: Epinephrine, Urine - ug/dAccess complete set of age- and/or gender-specific referenceintervals for this test in the [facility](DirectRM). Performed By: #### L [id number] ####[facility] ([facility])[address] EPINEPHRINE, URINE - PER VOLUME 2 ug/L Normal [facility] Comment on above: Performed By: #### L [id number] ####[facility] ([facility])[address] EPINEPHRINE, URINE - RATIO TO [employer]LA[employer]ORING [employer]ER 1 ug/g [employer] Normal 0-20 [facility] Comment on above: Performed By: #### L [id number] ####[facility] ([facility])[address] NOREPINEPHRINE, URINE - PER 24H 15 ug/d Normal 14-120 [facility] Comment on above: Result Comment: REFE RENCE INTERVAL: Norepinephrine, Urine - ug/dAccess complete set of age- and/or gender-specific referenceintervals for this test in the [facility] Test Directory(DirectRM). Performed By: #### L [id number] ####[facility] ([facility])[address] NOREPINEPHRINE, URINE - PER VOLUME 49 ug/L Normal [facility] Comment on above: Performed By: #### L [id number] ####[facility] ([facility])[address] [place] [address] [place] NOREPINEPHRINE, URINE - RATIO TO [employer]IL [employer] 27 ug/g [employer] Normal 0-45 [facility] Comment on above: Performed By: #### L [id number] ####[facility] ([facility])[address] [place] [address] [place] CBC W Auto Differential pane l (Bld)Ordered By: Melissa Denson on 04-27-2024 Erythrocyte distribution width (RBC) [Ratio] 15 % 11.5 - 15.0 % [facility] Hematocrit (Bld) [Volume fraction] 38.6 % 35.0 - 47.0 % [facility] Hemoglobin (Bld) [Mass/Vol] 11.6 g/dL Low 11.7 - 16.0 g/dL [facility] Interpretation and review of laboratory results Abnormal [facility] IPF 12 [facility] MCH (RBC) [Entitic mass] 27.2 pg 26.0 - 34.0 pg [facility] MCHC (RBC) [Mass/Vol] 30.1 % Low 30.5 - 36.0 % [facility] MCV (RBC) [Entitic vol] 90.4 fL 77.0 - 99.0 fL [facility] Platelet mean volume (Bld) [Entitic vol] 13.4 fL High 9.0 - 12.7 fL [facility] Platelets (Bld) [#/Vol] 93 10*3/uL Low 140 - 440 10*3/uL [facility] RBC (Bld) [#/Vol] 4.27 10*6/uL 3.80 - 5.2 0 10*6/uL [facility] WBC (Bld) [#/Vol] 13.5 10*3/uL High 3.6 - 10.7 10*3/uL [facility] CBC WITH AUTO DIFFERENTIALon 04-27-2024 Erythrocyte distribution width (RBC) [Ratio] 15.0 % Normal 11.5-15.0 [facility] Comment on above: Performed By: #### L [id number], [id number] ####Dispatcher Service Chief: VIVIAN PANTOJA ([phone])[address] Hematocrit (Bld) [Volume fraction] 38.6 % Normal 35.0-47.0 [facility] Comment on above: Performed By: #### Manpreet [id number], [id number] ####Dispatcher Service Chief: VIVIAN PANTOJA ([phone])[address] Hemoglobin (Bld) [Mass/Vol] 11.6 g/dL Low 11.7-16.0 [facility] Comment on above: Performed By: #### L [id number], [id number] ####Dispatcher Service Chief: VIVIAN PANTOJA ([phone])[address] IPF 12 Normal [facility] Comment on above: Performed By: #### L [id number], [id number] ####Dispatcher Service Chief: VIVIAN PANTOJA ([phone])[facility])[address] [place] [address] MCH (RBC) [Entitic mass] 27.2 pg Normal 26.0-34.0 [facility] Comment on above: Performed By: #### L [id number], [id number] ####Dispatcher Service Chief: VIVIAN PANTOJA ([phone])[facility] ([facility])[address] [place] [address] MCHC 30.1 % Low 30.5-36.0 [facility] Comment on above: Performed By: #### L [id number], [id number] ####Dispatcher Service Chief: VIVIAN PANTOJA ([id number])[facility] ([facility])[address] [place] [address] MCV (RBC) [Entitic vol] 90.4 fL Normal 77.0-99.0 [facility] Comment on above: Performed By: #### L [id number], [id number] ####Dispatcher Service Chief: VIVIAN PANTOJA ([phone])[facility] ([facility])[address] [place] [address] Platelet mean volume (Bld) [Entitic vol] 13.4 fL High 9.0-12.7 [facility] Comment on above: Performed By: #### Manpreet [id number], [id number] ####Dispatcher Service Chief: VIVIAN PANTOJA ([phone])[facility] ([facility])[address] [place] [address] Platelets (Bld) [#/Vol] 93 10*3/uL Low 140-440 [facility] Comment on above: Performed By: #### L [id number], [id number] ####Dispatcher Service Chief: VIVIAN PANTOJA ([phone])[facility] ([facility])[address] [place] [address] RBC (Bld) [#/Vol] 4.27 10*6/uL Normal 3.80-5.20 [facility] Comment on above: Performed By: #### L [id number], [id number] ####Dispatcher Service Chief: VIVIAN PANTOJA ([phone])[facility])[address] [place] [address] WBC (Bld) [#/Vol] 13.5 10*3/uL High 3.6-10.7 [facility] Comment on above: Performed By: #### L [id number], [id number] ####Dispatcher Service Chief: VIVIAN PANTOJA ([id number])[facility] ([facility])[address] [place] [address] COMPREHENSIVE METABOLIC PANE Amaury 04-27-2024 Albumin [Mass/Vol] 4.0 g/dL Normal 3.4-4.8 [facility] Comment on above: Performed By: #### L [id number], [id number], [id number], LAB17, LAB99 ####Dispatcher Service Chief: VIVIAN PANTOJA ([phone])[facility] ([facility])[address] [place] [address] ALP [Catalytic activity/Vol] 60 U/L Normal 40-150 [facility] Comment on above: Performed By: #### L AB61, [id number], [id number], LAB17, LAB99 ####Dispatcher Service Chief: VIVIAN PANTOJA ([id number])[facility] ([facility])[address] [place] [address] ALT [Catalytic activity/Vol] 10 U/L Normal <30 [facility] Comment on above: Performed By: #### L AB61, [id number], [id number], LAB17, LAB99 ####Dispatcher Service Chief: VIVIAN PANTOJA ([phone])[facility] ([facility])[address] [place] [address] Anion gap [Moles/Vol] 8 mmol/L Normal 3-13 [facility] Comment on above: Performed By: #### L [id number], [id number], [id number], LAB17, LAB99 ####Dispatcher Service Chief: VIVIAN PANTOJA ([id number])[facility] ([facility])[address] [place] [address] AST [Catalytic activity/Vol] 12 U/L Normal <34 [facility] Comment on above: Performed By: #### L [id number], [id number], [id number], LAB17, LAB99 ####Dispatcher Service Chief: VIVIAN PANTOJA ([phone])[facility] ([facility])[address] [place] [address] Bilirubin [Mass/Vol] 0.7 mg/dL Normal <1.2 [facility] Comment on above: Performed By: #### L [id number], [id number], [id number], LAB17, LAB99 ####Dispatcher Service Chief: VIVIAN PANTOJA ([phone])[facility] ([facility])[address] [place] [address] Calcium [Mass/Vol] 9.4 mg/dL Normal 8.8-10.0 [facility] Comment on above: Performed By: #### L AB61, [id number], [id number], LAB17, LAB99 ####Dispatcher Service Chief: VIVIAN PANTOJA ([phone])[facility] ([facility])[address] [place] [address] Chloride [Moles/Vol] 114 mmol/L High 98-107 [facility] Comment on above: Performed By: #### L AB61, [id number], [id number], LAB17, LAB99 ####Dispatcher Service Chief: VIVIAN PANTOJA ([phone])[facility] ([facility])[address] [place] [address] CO2 [Moles/Vol] 20 mmol/L Low 23-31 [facility] Comment on above: Performed By: #### L AB61, [id number], [id number], LAB17, LAB99 ####Dispatcher Service Chief: VIVIAN PANTOJA ([phone])[facility] ([facility])[address] [place] [address] [place] Creatinine [Mass/Vol] 1.84 mg/dL High 0.57-1.11 [facility] Comment on above: Performed By: #### L AB61, [id number], [id number], LAB17, LAB99 ####Dispatcher Service Chief: VIVIAN PANTOJA ([phone])[facility] ([facility])[address] [place] [address] [place] GLOMERULAR FILTRATION RATE ML/MIN/1.73 SQ M.PREDICTED 28.7 mL/min/1.73m*2 Low >60.0 [facility] Comment on above: Result Comment: Calc ulation based on the Chronic Kidney Disease Epidemiology Collaboration (CKD-EPI) equation refit without adjustment for race Performed By: #### L AB61, [id number], [id number], LAB17, LAB99 ####Dispatcher Service Chief: VIVIAN PANTOJA ([phone])[facility])[address] [place] [address] Glucose [Mass/Vol] 134 mg/dL High 82-115 [facility] Comment on above: Performed By: #### L AB61, [id number], [id number], LAB17, LAB99 ####Dispatcher Service Chief: VIVIAN PANTOJA ([phone])[facility])[address] [place] [address] Potassium [Moles/Vol] 3.7 mmol/L Normal 3.5-5.1 [facility] Comment on above: Result Comment: [facility] potassium values may be up to 0.5 mmol/L lower than serum values. Performed By: #### L AB61, [id number], [id number], LAB17, LAB99 ####Dispatcher Service Chief: VIVIAN PANTOJA ([phone])[facility] ([facility])[address] [place] [address] Protein [Mass/Vol] 6.1 g/dL Low 6.4-8.3 [facility] Comment on above: Performed By: #### L AB61, [id number], [id number], LAB17, LAB99 ####Dispatcher Service Chief: VIVIAN PANTOJA ([phone])[facility])[address] [place] [address] [place] Sodium [Moles/Vol] 142 mmol/L Normal 136-145 [facility] Comment on above: Performed By: #### L AB61, [id number], [id number], LAB17, LAB99 ####Dispatcher Service Chief: VIVIAN PANTOJA ([phone])[facility])[address] [place] [address] [place] Urea nitrogen [Mass/Vol] 27 mg/dL High 9-23 [facility] Comment on above: Performed By: #### L AB61, [id number], [id number], LAB17, LAB99 ####Dispatcher Service Chief: VIVIAN PANTOJA ([phone])[facility] [place] [address] CORTISOLon 04-27-2024 CORTISOL 11.4 ug/dL Normal 3.7-19.4 [facility] Comment on above: Result Comment: ORDE R COMMENTS:Before 10am 4.5-22.7 ug/dLAfter 5pm 1.7-14.1 ug/dL Performed By: #### L AB61, [id number], [id number], LAB17, LAB99 ####Dispatcher Service Chief: VIVIAN PANTOJA ([phone])[facility] ([facility])[address] [place] [address] CT ABDOMEN PELVIS WO IV CONT RASTon 04-27-2024 CT ABDOMEN PELVIS WO IV CONTRAST Normal [facility] CT Abdomen and Pelvis WO con traston 04-27-2024 [facility] RADIOLOGY SYSTEM [facility] RADIOLOGY [facility] Radiology Study observation (narrative) [facility] CT Abdomen and Pelvis WO con trastOrdered By: Selma Azevedo on 04-27-2024 [facility] Work Phone: Comprehensive metabolic 1998 panelon 04-27-2024 Albumin [Mass/Vol] 4 g/dL 3.4 - 4.8 g/dL [facility] ALP [Catalytic activity/Vol] 60 U/L 40 - 150 U/L [facility] ALT [Catalytic activity/Vol] 10 U/L NINF - 30 U/L [facility] Anion gap [Moles/Vol] 8 mmol/L 3 - 13 mmol/L [facility] AST [Catalytic activity/Vol] 12 U/L NINF - 34 U/L [facility] Bilirubin [Mass/Vol] 0.7 mg/dL NINF - 1.2 mg/dL [facility] Calcium [Mass/Vol] 9.4 mg/dL 8.8 - 10. 0 mg/dL [facility] Chloride [Moles/Vol] 114 mmol/L High 98 - 10 7 mmol/L [facility] CO2 [Moles/Vol] 20 mmol/L Low 23 - 31 mmol/L [facility] Creatinine [Mass/Vol] 1.84 mg/dL High 0.57 - 1.11 mg/dL [facility] GFR/1.73 sq M.predicted (S/P/Bld) [Vol rate/Area] 28.7 mL/min Low - PINF [facility] Glucose [Mass/Vol] 134 mg/dL High 82 - 115 mg/dL [facility] Interpretation and review of laboratory results Abnormal [facility] Potassium [Moles/Vol] 3.7 mmol/L 3.5 - 5.1 mmol/L [facility] Protein [Mass/Vol] 6.1 g/dL Low 6.4 - 8.3 g/dL [facility] Sodium [Moles/Vol] 142 mmol/L 136 - 145 mmol/L [facility] Urea nitrogen [Mass/Vol] 27 mg/dL High 9 - 23 mg/dL [facility] DIGOXINon 04-27-2024 Digoxin [Mass/Vol] 2.0 ng/mL Normal 0.8-2.0 [facility] Comment on above: Result Comment: LEOBARDO Gill COMMENTS:Toxicity seen at concentrations >2.0 ng/mL Performed By: #### L AB23 ####Dispatcher Service Chief: VIVIAN PANTOJA ([phone])[facility] ([facility] Digoxin [Mass/Vol] 2.4 ng/mL High 0.8-2.0 [facility] Comment on above: Result Comment: LEOBARDO Gill COMMENTS:Toxicity seen at concentrations >2.0 ng/mL Performed By: #### L AB23 ####Dispatcher Service Chief: VIVIAN PANTOJA ([phone])[facility] ([facility])[address] [place] [address] Digoxin levelon 04-27-2024 Digoxin [Mass/Vol] 2.4 ng/mL High 0.8 - 2.0 ng/mL [facility] Interpretation and review of laboratory results Abnormal [facility] Toxicity seen at concentrations >2.0 ng/mL [facility] ECG 12 lead - CLINIC PERFORM EDon 04-27-2024 [facility] ED Provider Noteon ED Provider Note Normal [facility] HIGH SENSITIVITY TROPONIN, S ERIAL BASELINEon 04-27-2024 TROPONIN HS SERIAL BASELINE 40 ng/L High <=14 [facility] Comment on above: Result Comment: In i ndividuals presenting with symptoms > 2h, a baseline troponin <= 5 ng/L suggests acutecardiac injury is unlikely and further serial testing is generally not indicated. Performed By: #### L AB61, [id number], [id number], LAB17, LAB99 ####Dispatcher Service Chief: VIVIAN PANTOJA ([phone])[facility] ([facility])[address] [place] [address] HIGH SENSITIVITY TROPONIN, S ERIAL, SECOND TESTon 04-27-2024 2H TROPONIN HS (SERIAL 2ND TROPONIN) 37 ng/L High <=14 [facility] Comment on above: Result Comment: Risi ng or falling troponin delta between 2 ??? 15 ng/L as compared to baseline value requires a 3rd serial troponin Performed By: #### L [id number] ####Dispatcher Service Chief: VIVIAN PANTOJA ([phone])[facility])[address] [place] [address] LIPASEon 04-27-2024 Lipase [Catalytic activity/Vol] 31 U/L Normal <55 [facility] Comment on above: Performed By: #### L AB61, [id number], [id number], LAB17, LAB99 ####Dispatcher Service Chief: VIVIAN PANTOJA ([phone])[facility] ([facility])[address] [place] [address] Laboratory - Chemistry and C hemistry - challengeon 04-27-2024 Cortisol [Mass/Vol] 11.4 ug/dL 3.7 - 19 .4 ug/dL [facility] Magnesium [Mass/Vol] 1.7 mg/dL 1.6 - 2 .6 mg/dL [facility] Lipase [Catalytic activity/Vol] 31 U/L NINF - 55 U/L [facility] Laboratory - Drug toxicology on 04-27-2024 Digoxin [Mass/Vol] 2 ng/mL 0.8 - 2.0 ng/mL [facility] Laboratory - Hematology and Cell countson 04-27-2024 Lymphocytes (Bld) [#/Vol] 3.1 10*3/uL 1.0 - 4.3 10*3/uL [facility] Lymphocytes/100 WBC (Bld) 23 % 15 - 45 % [facility] Monocytes (Bld) [#/Vol] 2.2 10*3/uL High 0.0 - 0.9 10*3/uL [facility] Monocytes/100 WBC (Bld) 16 % High 5 - 13 % [facility] Neutrophils (Bld) [#/Vol] 8.4 10*3/uL High 1.8 - 7.5 10*3/uL [facility] Ovalocytes LM Ql (Bld) Slight Abnormal (none) [facility] Poikilocytosis LM Ql (Bld) Slight Abnormal (none) [facility] RBC morphology finding Nom (Bld) abnormal [facility] Segmented neutrophils/100 WBC (Bld) 62 % 38 - 82 % [facility] Lipase [Catalytic activity/V ol]on 04-27-2024 Interpretation and review of laboratory results Normal [facility] MAGNESIUMon 04-27-2024 Magnesium [Mass/Vol] 1.7 mg/dL Normal 1.6-2.6 [facility] Comment on above: Result Comment: LEOBARDO Gill COMMENTS:Higher values can be expected in females during menses. Performed By: #### L AB61, [id number], [id number], LAB17, LAB99 ####Dispatcher Service Chief: VIVIAN PANTOJA ([phone])[facility])[address] [place] [address] MANUAL DIFFERENTIAL (CELLAVI TANYA)on 04-27-2024 BAND NEUTROPHILS TOTAL PER COUNTED LEUKOCYTES BY MANUAL COUNT [facility] Comment on above: Performed By: #### L [id number], [id number] ####Dispatcher Service Chief: VIVIAN PANTOJA ([phone])[facility] ([facility])[address] [place] [address] BASOPHILS TOTAL PER COUNTED LEUKOCYTES BY MANUAL COUNT [facility] Comment on above: Performed By: #### L [id number], [id number] ####Dispatcher Service Chief: VIVIAN PANTOJA ([phone])[facility] ([facility])[address] [place] [address] [place] BLASTS TOTAL PER COUNTED LEUKOCYTES BY MANUAL COUNT Normal [facility] Comment on above: Performed By: #### L [id number], [id number] ####Dispatcher Service Chief: VIVIAN PANTOJA ([phone])[facility] ([facility])[address] [place] [address] [place] EOSINOPHILS TOTAL PER COUNTED LEUKOCYTES BY MANUAL COUNT Normal [facility] Comment on above: Performed By: #### L [id number], [id number] ####Dispatcher Service Chief: VIVIAN PANTOJA ([phone])[facility] ([facility])[address] [place] [address] LYMPHOCYTES (10*3/UL) IN BLOOD-CELLAVISION 3.1 10*3/uL Normal 1.0-4.3 [facility] Comment on above: Performed By: #### L [id number], [id number] ####Dispatcher Service Chief: VIVIAN PANTOJA ([phone])[facility] ([facility])[address] [place] [address] LYMPHOCYTES TOTAL PER COUNTED LEUKOCYTES BY MANUAL COUNT 23 Normal [facility] Comment on above: Performed By: #### L [id number], [id number] ####Dispatcher Service Chief: VIVIAN PANTOJA ([phone])[facility] ([facility])[address] [place] [address] [place] LYMPHOCYTES/100 LEUKOCYTES IN BLOOD-CELLAVISION 23 % Normal 15-45 [facility] Comment on above: Performed By: #### L [id number], [id number] ####Dispatcher Service Chief: VIVIAN PANTOJA ([phone])[facility] ([facility])[address] [place] [address] METAMYELOCYTES TOTAL PER COUNTED LEUKOCYTES BY MANUAL COUNT Normal [facility] Comment on above: Performed By: #### L [id number], [id number] ####Dispatcher Service Chief: VIVIAN PANTOJA ([phone])[facility] ([facility])[address] [place] [address] MONOCYTES (10*3/UL) IN BLOOD-CELLAVISION 2.2 10*3/uL High 0.0-0.9 [facility] Comment on above: Performed By: #### L [id number], [id number] ####Dispatcher Service Chief: VIVIAN PANTOJA ([phone])[facility] ([facility])[address] [place] [address] [place] MONOCYTES TOTAL PER COUNTED LEUKOCYTES BY MANUAL COUNT 16 Normal [facility] Comment on above: Performed By: #### L [id number], [id number] ####Dispatcher Service Chief: VIVIAN PANTOJA ([phone])[facility] [place] [address] [place] MONOCYTES/100 LEUKOCYTES IN BLOOD-IBETH 16 % High 5-13 [facility] Comment on above: Performed By: #### L [id number], [id number] ####Dispatcher Service Chief: VIVIAN PANTOJA ([phone])[facility] ([facility])[address] [place] [address] [place] MYELOCYTES COUNTED BY MANUAL COUNT [facility] Comment on above: Performed By: #### L [id number], [id number] ####Dispatcher Service Chief: VIVIAN PANTOJA ([phone])[facility] [place] [address] [place] NEUTROPHILS TOTAL PER COUNTED LEUKOCYTES BY MANUAL COUNT 63 Normal [facility] Comment on above: Performed By: #### L [id number], [id number] ####Dispatcher Service Chief: VIVIAN PANTOJA ([phone])[facility] ([facility])[address] [place] [address] [place] OVALOCYTES PRESENCE IN BLOOD BY LIGHT MICROSCOPY Slight Abnormal (none) [facility] Comment on above: Performed By: #### L [id number], [id number] ####Dispatcher Service Chief: VIVIAN PANTOJA ([phone])[facility])[address] [place] [address] [place] POIKILOCYTOSIS (PRESENCE) IN BLOOD BY LIGHT MICROSCOPY Slight Abnormal (none) [facility] Comment on above: Performed By: #### L [id number], [id number] ####Dispatcher Service Chief: VIVIAN PANTOJA ([phone])[facility] ([facility])[address] [place] [address] [place] PROMYELOCYTES TOTAL PER COUNTED LEUKOCYTES BY MANUAL COUNT Normal [facility] Comment on above: Performed By: #### L [id number], [id number] ####Dispatcher Service Chief: VIVIAN PANTOJA ([phone])[facility])[address] [place] [address] RBC MORPHOLOGY IN BLOOD abnormal Normal [facility] Comment on above: Performed By: #### L [id number], [id number] ####Dispatcher Service Chief: VIVIAN PANTOJA ([phone])[facility])[address] [place] [address] SEGMENTED NEUTROPHILS (10*3/UL) IN BLOOD-CELLAVISION 8.4 10*3/uL High 1.8-7.5 [facility] Comment on above: Performed By: #### L [id number], [id number] ####Dispatcher Service Chief: VIVIAN PANTOJA ([phone])[address] SEGMENTED NEUTROPHILS/100 LEUKOCYTES-CE 62 % Normal 38-82 [facility] Comment on above: Performed By: #### L [id number], [id number] ####Dispatcher Service Chief: VIVIAN PANTOJA ([phone])[address] UNCLASSIFIED CELLS TOTAL PER COUNTED LEUKOCYTES BY MANUAL COUNT [facility] Comment on above: Performed By: #### L [id number], [id number] ####Dispatcher Service Chief: VIVIAN PANTOJA ([phone])[address] VARIANT LYMPHOCYTES TOTAL PER COUNTED LEUKOCYTES BY MANUAL COUNT [facility] Comment on above: Performed By: #### L [id number], [id number] ####Dispatcher Service Chief: VIVIAN PANTOJA ([phone])[facility])[address] [place] [address] Magnesium [Mass/Vol]on 04-27 Interpretation and review of laboratory results Normal [facility] No Panel Informationon 04-27 2h Troponin HS (Serial 2nd Troponin) 37 ng/L High [facility] - 14 ng/L [facility] Interpretation and review of laboratory results Abnormal [facility] Interpretation and review of laboratory results Normal [facility] Interpretation and review of laboratory results Abnormal [facility] Lymphocytes Manual 23 [facility] Monocytes Manual 16 [facility] Neutrophils Manual 63 [facility] Interpretation and review of laboratory results Abnormal [facility] Troponin HS Serial Baseline 40 ng/L High NINF - 14 ng/L [facility] Interpretation and review of laboratory results Normal [facility] Progress Noteon 04-27-2024 Progress Note Normal [facility] VMA, URINEon 04-27-2024 CREATININE, URINE - PER 24H 564 mg/d Normal 500-1400 [facility] Comment on above: Performed By: #### L [id number] ####[facility] ([facility])[address] Result Comment: Perf ormed By: [facility] [id number] [place], [place] [address]Laboratory Director: Miranda Dorman MD, PhDCLIA Number: [id number] Performed By: #### L [id number] ####[facility] ([facility])[address] CREATININE, URINE - PER VOLUME 182 mg/dL Normal [facility] Comment on above: Performed By: #### L [id number] ####[facility] ([facility])[address] Performed By: #### L [id number] ####[facility] ([facility])[address] HOURS COLLECTED 24 hr Normal [facility] Comment on above: Result Comment: Per 24h calculations are provided to aid interpretation forcollections with a duration of 24 hours and an average daily urinevolume. For specimens with notable deviations in collection timeor volume, ratios of analytes to a corresponding urine creatinineconcentration may assist in result interpretation. Performed By: #### L [id number] ####[facility] ([facility])[address] [place] Performed By: #### L [id number] ####[facility] ([facility])[address] TOTAL VOLUME 310 mL Normal [facility] Comment on above: Performed By: #### L [id number] ####[facility] ([facility])[address] Performed By: #### L [id number] ####[facility] ([facility])[address] VANILLYLMANDELIC ACID - PER 24H 1.9 mg/d Normal 0.0-7.0 [facility] Comment on above: Performed By: #### L [id number] ####[facility] ([facility])[address] VANILLYLMANDELIC ACID - PER VOLUME 6.2 mg/L Normal [facility] Comment on above: Performed By: #### L [id number] ####[facility] ([facility])[address] VANILLYLMANDELIC ACID - RATIO TO FLAVORING OIL FILTERER 3 mg/gCR Normal 0-6 [facility] Comment on above: Result Comment: REFE RENCE INTERVAL: VMA, Urine mg/g CRTAccess complete set of age- and/or gender-specific referenceintervals for this test in the [facility] Directory(DirectRM).Performed By: [facility] [place], [place] [address]Laboratory Director: Miranda Dorman MD, PhDCLIA Number: [id number] Performed By: #### L [id number] ####[facility] ([facility])[address] VANILLYLMANDELIC ACID INTERPRETATION See Note Normal [facility] Comment on above: Result Comment: INTE RPRETIVE INFORMATION: Vanillylmandelic Acid (VMA), UrineVanillylmandelic acid (VMA) results are expressed as a ratio tocreatinine excretion (mg/g FLAVORING OIL FILTERER). No reference interval isavailable for results reported in units of mg/L. Slight ormoderate increases in catecholamine metabolites may be due toextreme anxiety, essential hypertension, intense physicalexercise, or drug interactions. Significant increase of one ormore catecholamine metabolites (several times the upper referencelimit) is associated with an increased probability of a secretingneuroendocrine tumor.This test was developed and its performance characteristicsdetermined by [facility]. It has not been cleared orapproved by the [place] Food and Drug Administration. This test wasperformed in a CLIA certified laboratory and is intended forclinical purposes. Performed By: #### L [id number] ####[facility] ([facility])[address] [place] [address] [facility] XR Chest Single viewon 04-27 [facility] Radiology Study observation (narrative) [facility] XR Chest Single viewOrdered By: Maxx Molina on 04-27-2024 [facility] Work Phone: 36on 04-25-2024 36 Normal [facility] BASIC METABOLIC PANELon Anion gap [Moles/Vol] 5 mmol/L Normal 3-13 [facility] Comment on above: Performed By: #### L AB15 ####Dispatcher Service Chief: VIVIAN PANTOJA ([phone])[facility] ([facility])[address] Calcium [Mass/Vol] 8.8 mg/dL Normal 8.8-10.0 [facility] Comment on above: Performed By: #### L AB15 ####Dispatcher Service Chief: VIVIAN PANTOJA ([phone])[facility] ([facility])[address] [place] [address] [place] Chloride [Moles/Vol] 111 mmol/L High 98-107 [facility] Comment on above: Performed By: #### L AB15 ####Dispatcher Service Chief: VIVIAN PANTOJA ([phone])[facility] ([facility])[address] [place] [address] [place] CO2 [Moles/Vol] 22 mmol/L Low 23-31 [facility] Comment on above: Performed By: #### L AB15 ####Dispatcher Service Chief: VIVIAN PANTOJA ([phone])[facility] ([facility])[address] [place] [address] [place] Creatinine [Mass/Vol] 1.84 mg/dL High 0.57-1.11 [facility] Comment on above: Performed By: #### L AB15 ####Dispatcher Service Chief: VIVIAN PANTOJA ([phone])[facility] ([facility])[address] [place] [address] [place] GLOMERULAR FILTRATION RATE ML/MIN/1.73 SQ M.PREDICTED 28.7 mL/min/1.73m*2 Low >60.0 [facility] Comment on above: Result Comment: Calc ulation based on the Chronic Kidney Disease Epidemiology Collaboration (CKD-EPI) equation refit without adjustment for race Performed By: #### L AB15 ####Dispatcher Service Chief: VIVIAN PANTOJA ([phone])[facility] ([facility])[address] [place] [address] [place] Glucose [Mass/Vol] 101 mg/dL Normal 82-115 [facility] Comment on above: Performed By: #### L AB15 ####Dispatcher Service Chief: VIVIAN PANTOJA ([phone])[facility] ([facility])[address] [place] [address] [place] Potassium [Moles/Vol] 4.0 mmol/L Normal 3.5-5.1 [facility] Comment on above: Result Comment: [facility] potassium values may be up to 0.5 mmol/L lower than serum values. Performed By: #### L AB15 ####Dispatcher Service Chief: VIVIAN PANTOJA ([phone])[facility] ([facility])[address] [place] [address] [place] Sodium [Moles/Vol] 138 mmol/L Normal 136-145 [facility] Comment on above: Performed By: #### L AB15 ####Dispatcher Service Chief: VIVIAN PANTOJA ([phone])[facility] ([facility])[address] [place] [address] Urea nitrogen [Mass/Vol] 30 mg/dL High 12-05 [facility] Comment on above: Performed By: #### L AB15 ####Dispatcher Service Chief: VIVIAN PANTOJA ([phone])[facility] ([facility])[address] [place] [address] DIGOXINon 04-18-2024 Digoxin [Mass/Vol] 2.0 ng/mL Normal 0.8-2.0 [facility] Comment on above: Result Comment: LEOBARDO Gill COMMENTS:Toxicity seen at concentrations >2.0 ng/mL Performed By: #### L AB23 ####Dispatcher Service Chief: VIVIAN PANTOJA ([phone])[facility] ([facility])[address] [place] [address] 36on 04-13-2024 36 Noted; thank you. [facility] [address] [facility] 36on 04-06-2024 36 Placed call to shari gonzlaez to discuss provider direction. Message left on voicemail to return call. Patient can also call us back if any questions. [facility] 36on 04-05-20[address] [facility] 36 Called daughter, and left message that she is now scheduled to see Dr. Moon in [place] 04/27/24 at 9:[address]. [facility] [address] [facility] [address] [facility] 36on 04-04-2024 36 Called patient and n o answer and voice mail is full, also sent patient a Proxio message. [facility] [address] [facility] Progress Noteon 04-03-[address] [facility] 36on 03-23-[address] [facility] 36 Daughter called to schedule. She was recently in [facility], her heart rate was elevated, and medication was changed. She is now scheduled to see Dr. Moon 04/06/24. [facility] [id number] 03-21-2024 [id number] Patient Choice Patient Name: ALTA BAKER Date of : [address] [facility] 36on 03-13-[address] [facility] [address] [facility] [address] [facility] 30on 02-22-2024 30 Normal [facility] [id number] 02-22-[id number] [facility] [id number] Spoke with patients daughter Rhiannon to discuss dc planning and dc time. She will meet the patient at [facility]. [facility] [phone] Dc to [facility] this afternoon at 4:00. [facility] messaged the facility with fish bait picker time. Provided the nurse with report number and will notify family. [facility] [id number] [facility] [id number] [facility] CBC (HEMOGRAM)on 02-22-2024 Erythrocyte distribution width (RBC) [Ratio] 15.6 % High 11.5-15.0 [facility] Comment on above: Performed By: #### L [id number] ####Dispatcher Service Chief: AMAN SANTOS ([id number])[facility] ([address] Hematocrit (Bld) [Volume fraction] 32.0 % Low 35.0-47.0 [facility] Comment on above: Performed By: #### L AB294 ####Dispatcher Service Chief: AMAN SANTOS ([id number])[facility] ([facility])[address] [place] [address] Hemoglobin (Bld) [Mass/Vol] 9.5 g/dL Low 11.7-16.0 [facility] Comment on above: Performed By: #### L AB294 ####Dispatcher Service Chief: AMAN [id number])[facility] [place] (SBHLAB)[address] [place] [address] [place] IPF 10 Normal [facility] Comment on above: Performed By: #### L AB294 ####Dispatcher Service Chief: AMAN TOM ([id number])[facility] [place] ([facility])[address] MCH (RBC) [Entitic mass] 27.4 pg Normal 26.0-34.0 [facility] Comment on above: Performed By: #### L AB294 ####Dispatcher Service Chief: AMAN TOM ([id number])[facility] [place] (SBHLAB)[address] MCHC 29.7 % Low 30.5-36.0 [facility] Comment on above: Performed By: #### L AB294 ####Dispatcher Service Chief: AMAN TOM ([id number])[facility] [place] (SB[facility])[address] MCV (RBC) [Entitic vol] 92.2 fL Normal 77.0-99.0 [facility] Comment on above: Performed By: #### L AB294 ####Dispatcher Service Chief: AMAN HEARDOMID ([id number])[facility] CENTERBessy [place]ART[place]AM[place] (SBHLAB)[address] Platelet mean volume (Bld) [Entitic vol] 11.9 fL Normal 9.0-12.7 [facility] Comment on above: Performed By: #### L AB294 ####Dispatcher Service Chief: AMAN MEDINAANGELA ([id number])[facility]ITAL[facility] (SBHLAB)[address] [place] [address] [place] Platelets (Bld) [#/Vol] 95 10*3/uL Low 140-440 [facility] Comment on above: Performed By: #### L AB294 ####Dispatcher Service Chief: AMAN SANTOS ([id number])[facility]ENTER[facility] [place] (SBHLAB)[address] RBC (Bld) [#/Vol] 3.47 10*6/uL Low 3.80-5.20 [facility] Comment on above: Performed By: #### L AB294 ####Dispatcher Service Chief: AMAN SANTOS ([id number])[facility] (SBHLAB)[address] WBC (Bld) [#/Vol] 10.1 10*3/uL Normal 3.6-10.7 [facility] Comment on above: Performed By: #### L AB294 ####Dispatcher Service Chief: AMAN SANTOS ([id number])[facility] (SB[facility])[address] CBC panel Auto (Bld)on 02-21 Erythrocyte distribution width (RBC) [Ratio] 15.6 % High 11.5 - 15.0 % [facility] Hematocrit (Bld) [Volume fraction] 32 % Low 35.0 - 47.0 % [facility] Hemoglobin (Bld) [Mass/Vol] 9.5 g/dL Low 11.7 - 16.0 g/dL [facility] Interpretation and review of laboratory results Abnormal [facility] IPF 10 [facility] MCH (RBC) [Entitic mass] 27.4 pg 26.0 - 34.0 pg [facility] MCHC (RBC) [Mass/Vol] 29.7 % Low 30.5 - 36.0 % [facility] MCV (RBC) [Entitic vol] 92.2 fL 77.0 - 99.0 fL [facility] Platelet mean volume (Bld) [Entitic vol] 11.9 fL 9.0 - 12.7 fL [facility] Platelets (Bld) [#/Vol] 95 10*3/uL Low 140 - 440 10*3/uL [facility] RBC (Bld) [#/Vol] 3.47 10*6/uL Low 3.80 - 5.2 0 10*6/uL [facility] WBC (Bld) [#/Vol] 10.1 10*3/uL 3.6 - 10.7 10*3/uL [facility] COMPREHENSIVE METABOLIC PANE Amaury 02-22-2024 Albumin [Mass/Vol] 3.8 g/dL Normal 3.4-4.8 [facility] Comment on above: Performed By: #### L AB17 ####Dispatcher Service Chief: AMAN SANTOS ([id number])[facility] [place] (SB[facility]AB)[address] ALP [Catalytic activity/Vol] 88 U/L Normal 40-150 [facility] Comment on above: Performed By: #### L AB17 ####Dispatcher Service Chief: AMAN SANTOS ([id number])[facility] [place] (SB[facility])[address] ALT [Catalytic activity/Vol] 16 U/L Normal <30 [facility] Comment on above: Performed By: #### L AB17 ####Dispatcher Service Chief: AMAN SANTOS ([id number])[facility] [place] (SB[facility])[address] Anion gap [Moles/Vol] 7 mmol/L Normal 3-13 [facility] Comment on above: Performed By: #### L AB17 ####Dispatcher Service Chief: AMAN SANTOS ([id number])[facility] [place] ([facility])[address] AST [Catalytic activity/Vol] 14 U/L Normal <34 [facility] Comment on above: Performed By: #### L AB17 ####Dispatcher Service Chief: AMAN SANTOS ([id number])[facility] [place] (SB[facility])[address] Bilirubin [Mass/Vol] 1.8 mg/dL High <1.2 [facility] Comment on above: Performed By: #### L AB17 ####Dispatcher Service Chief: AMAN SANTOS ([id number])[facility] [place] (SB[facility])[address] Calcium [Mass/Vol] 9.5 mg/dL Normal 8.8-10.0 [facility] Comment on above: Performed By: #### L AB17 ####Dispatcher Service Chief: AMAN SANTOS ([id number])[facility] CENTERBessy [place] (SBHLAB)[address] Chloride [Moles/Vol] 99 mmol/L Normal 98-107 [facility] Comment on above: Performed By: #### L AB17 ####Dispatcher Service Chief: AMAN MEDINAANGELA ([id number])[facility] (SBHL[facility])[address] CO2 [Moles/Vol] 36 mmol/L High 23-31 [facility] Comment on above: Performed By: #### L AB17 ####Dispatcher Service Chief: AMAN HEARDOMID ([id number])[facility] ([facility] Creatinine [Mass/Vol] 0.64 mg/dL Normal 0.57-1.11 [facility] Comment on above: Performed By: #### L AB17 ####Dispatcher Service Chief: AMAN SANTOS ([id number])[facility] ([facility])[address] GLOMERULAR FILTRATION RATE ML/MIN/1.73 SQ M.PREDICTED >90.0 Normal >60.0 [facility] Comment on above: Result Comment: Calc ulation based on the Chronic Kidney Disease Epidemiology Collaboration (CKD-EPI) equation refit without adjustment for race Performed By: #### L AB17 ####Dispatcher Service Chief: AMAN SANTOS ([id number])[facility] ([facility])[address] [place] [address] [place] Glucose [Mass/Vol] 111 mg/dL Normal 82-115 [facility] Comment on above: Performed By: #### L AB17 ####Dispatcher Service Chief: AMAN SANTOS ([id number])[facility] ([facility])[address] [place] [address] [place] Potassium [Moles/Vol] 3.9 mmol/L Normal 3.5-5.1 [facility] Comment on above: Result Comment: Plas ma potassium values may be up to 0.5 mmol/L lower than serum values. Performed By: #### L AB17 ####Dispatcher Service Chief: AMAN HEARDOMID ([id number])[facility]ENTERBessy [place] (SBHLAB)[address] Protein [Mass/Vol] 6.1 g/dL Low 6.4-8.3 [facility] Comment on above: Performed By: #### L AB17 ####Dispatcher Service Chief: AMAN MEDINAANGELA ([id number])[facility]A [facility]ITALN (SBHLAB)[address] Sodium [Moles/Vol] 142 mmol/L Normal 136-145 [facility] Comment on above: Performed By: #### L AB17 ####Dispatcher Service Chief: AMAN MEDINAANGELA ([id number])[facility] ([facility])[address] [place] [address] Urea nitrogen [Mass/Vol] 11 mg/dL Normal 9-23 [facility] Comment on above: Performed By: #### L AB17 ####Dispatcher Service Chief: AMAN TOM ([id number])[facility] ([facility])[address] [place] [address] Comprehensive metabolic 1998 panelon 02-22-2024 Albumin [Mass/Vol] 3.8 g/dL 3.4 - 4.8 g/dL [facility] ALP [Catalytic activity/Vol] 88 U/L 40 - 150 U/L [facility] ALT [Catalytic activity/Vol] 16 U/L NINF - 30 U/L [facility] Anion gap [Moles/Vol] 7 mmol/L 3 - 13 mmol/L [facility] AST [Catalytic activity/Vol] 14 U/L NINF - 34 U/L [facility] Bilirubin [Mass/Vol] 1.8 mg/dL High NINF - 1.2 mg/dL [facility] Calcium [Mass/Vol] 9.5 mg/dL 8.8 - 10. 0 mg/dL [facility] Chloride [Moles/Vol] 99 mmol/L 98 - 10 7 mmol/L [facility] CO2 [Moles/Vol] 36 mmol/L High 23 - 31 mmol/L [facility] Creatinine [Mass/Vol] 0.64 mg/dL 0.57 - 1.11 mg/dL [facility] GFR/1.73 sq M.predicted (S/P/Bld) [Vol rate/Area] - PINF [facility] Comment on above: Calculation based on the Chronic Kidney Disease Epidemiology Collaboration (CKD-EPI) equation refit without adjustment for race Glucose [Mass/Vol] 111 mg/dL 82 - 115 mg/dL [facility] Interpretation and review of laboratory results Abnormal [facility] Potassium [Moles/Vol] 3.9 mmol/L 3.5 - 5.1 mmol/L [facility] Comment on above: Plasma potassium imer ues may be up to 0.5 mmol/L lower than serum values. Protein [Mass/Vol] 6.1 g/dL Low 6.4 - 8.3 g/dL [facility] Sodium [Moles/Vol] 142 mmol/L 136 - 145 mmol/L [facility] Urea nitrogen [Mass/Vol] 11 mg/dL 9 - 23 mg/dL [facility] DIGOXINon 02-22-2024 Digoxin [Mass/Vol] 1.2 ng/mL Normal 0.8-2.0 [facility] Comment on above: Result Comment: LEOBARDO Gill COMMENTS:Toxicity seen at concentrations >2.0 ng/mL Performed By: #### L AB23 ####Dispatcher Service Chief: AMAN SANTOS ([id number])[facility])[address] [place] [address] Laboratory - Drug toxicology on 02-22-2024 Digoxin [Mass/Vol] 1.2 ng/mL 0.8 - 2.0 ng/mL [facility] No Panel Informationon 02-21 Interpretation and review of laboratory results Normal [facility] Toxicity seen at concentrations >2.0 ng/mL [facility] Progress Noteon 02-22-2024 Progress Note Normal [facility] Progress Note Normal [facility] Progress Note Normal [facility] [id number] 02-21-2024 [id number] Normal [facility] CBC (HEMOGRAM)on 02-21-2024 Erythrocyte distribution width (RBC) [Ratio] 15.6 % High 11.5-15.0 [facility] Comment on above: Performed By: #### L [id number] ####Dispatcher Service Chief: AMAN MEDINALeannOMID ([id number])[facility] ([facility])[address] Hematocrit (Bld) [Volume fraction] 32.7 % Low 35.0-47.0 [facility] Comment on above: Performed By: #### L AB294 ####Dispatcher Service Chief: AMAN MEDINAANGELA ([id number])[facility] ([facility])[address] Hemoglobin (Bld) [Mass/Vol] 9.5 g/dL Low 11.7-16.0 [facility] Comment on above: Performed By: #### L AB294 ####Dispatcher Service Chief: AMAN TOM ([id number])[facility] ([facility])[address] IPF 11 Normal [facility] Comment on above: Performed By: #### L AB294 ####Dispatcher Service Chief: AMAN TOM ([id number])[facility] ([facility])[address] MCH (RBC) [Entitic mass] 27.2 pg Normal 26.0-34.0 [facility] Comment on above: Performed By: #### L AB294 ####Dispatcher Service Chief: AMAN MEDINALeannOMID ([id number])[facility] ([facility])[address] MCHC 29.1 % Low 30.5-36.0 [facility] Comment on above: Performed By: #### L AB294 ####Dispatcher Service Chief: AMAN TOM ([id number])[facility] ([facility])[address] [place] [address] MCV (RBC) [Entitic vol] 93.7 fL Normal 77.0-99.0 [facility] Comment on above: Performed By: #### L AB294 ####Dispatcher Service Chief: AMAN HEARDOMID ([id number])[facility]ENTERBessy [place] (SBHLAB)[address] Platelet mean volume (Bld) [Entitic vol] 12.6 fL Normal 9.0-12.7 [facility] Comment on above: Performed By: #### L AB294 ####Dispatcher Service Chief: AMAN MEDINAANGELA ([id number])[facility] CENTERBessy MARTINEZUNION COUNTY GENERAL HOSPITALN (SBHLAB)[address] Platelets (Bld) [#/Vol] 91 10*3/uL Low 140-440 [facility] Comment on above: Performed By: #### L AB294 ####Dispatcher Service Chief: AMAN HEARDOMID ([id number])[facility]ENTERBessy MARTINEZM[facility] (SBHLAB)[address] [place] [address] RBC (Bld) [#/Vol] 3.49 10*6/uL Low 3.80-5.20 [facility] Comment on above: Performed By: #### L AB294 ####Dispatcher Service Chief: AMAN TOM ([id number])[facility] CENTERBessy [facility] (SB[facility]AB)[address] WBC (Bld) [#/Vol] 11.8 10*3/uL High 3.6-10.7 [facility] Comment on above: Performed By: #### L AB294 ####Dispatcher Service Chief: AMAN SANTOS ([id number])[facility] JUANUNION COUNTY GENERAL HOSPITALN (SBHLAB)[address] CBC panel Auto (Bld)Ordered By: Luis Hill on 02-21-2024 Erythrocyte distribution width (RBC) [Ratio] 15.6 % High 11.5 - 15.0 % [facility] Hematocrit (Bld) [Volume fraction] 32.7 % Low 35.0 - 47.0 % [facility] Hemoglobin (Bld) [Mass/Vol] 9.5 g/dL Low 11.7 - 16.0 g/dL [facility] Interpretation and review of laboratory results Abnormal [facility] IPF 11 [facility] MCH (RBC) [Entitic mass] 27.2 pg 26.0 - 34.0 pg [facility] MCHC (RBC) [Mass/Vol] 29.1 % Low 30.5 - 36.0 % [facility] MCV (RBC) [Entitic vol] 93.7 fL 77.0 - 99.0 fL [facility] Platelet mean volume (Bld) [Entitic vol] 12.6 fL 9.0 - 12.7 fL [facility] Platelets (Bld) [#/Vol] 91 10*3/uL Low 140 - 440 10*3/uL [facility] RBC (Bld) [#/Vol] 3.49 10*6/uL Low 3.80 - 5.2 0 10*6/uL [facility] WBC (Bld) [#/Vol] 11.8 10*3/uL High 3.6 - 10.7 10*3/uL [facility] COMPREHENSIVE METABOLIC PANE Amaury 02-21-2024 Albumin [Mass/Vol] 3.6 g/dL Normal 3.4-4.8 [facility] Comment on above: Performed By: #### L AB17 ####Dispatcher Service Chief: AMAN SANTOS ([id number])[facility] ([facility])[address] [place] [address] ALP [Catalytic activity/Vol] 80 U/L Normal 40-150 [facility] Comment on above: Performed By: #### L AB17 ####Dispatcher Service Chief: AMAN SANTOS ([id number])[facility] ([facility])[address] [place] [address] ALT [Catalytic activity/Vol] 17 U/L Normal <30 [facility] Comment on above: Performed By: #### L AB17 ####Dispatcher Service Chief: AMAN SANTOS ([id number])[facility] ([facility])[address] [place] [address] Anion gap [Moles/Vol] 5 mmol/L Normal 3-13 [facility] Comment on above: Performed By: #### L AB17 ####Dispatcher Service Chief: AMAN SANTOS ([id number])[facility] (SB[facility])[address] [place] [address] [place] AST [Catalytic activity/Vol] 13 U/L Normal <34 [facility] Comment on above: Performed By: #### L AB17 ####Dispatcher Service Chief: AMAN SANTOS ([id number])[facility] [place] ([facility])[address] Bilirubin [Mass/Vol] 1.3 mg/dL High <1.2 [facility] Comment on above: Performed By: #### L AB17 ####Dispatcher Service Chief: AMAN SANTOS ([id number])[facility] [place] (SB[facility])[address] Calcium [Mass/Vol] 9.5 mg/dL Normal 8.8-10.0 [facility] Comment on above: Performed By: #### L AB17 ####Dispatcher Service Chief: AMAN SANTOS ([id number])[facility] [place] (SB[facility])[address] [place] [address] [place] Chloride [Moles/Vol] 100 mmol/L Normal 98-107 [facility] Comment on above: Performed By: #### L AB17 ####Dispatcher Service Chief: AMAN SANTOS ([id number])[facility] [place] (SB[facility])[address] CO2 [Moles/Vol] 38 mmol/L High 23-31 [facility] Comment on above: Performed By: #### L AB17 ####Dispatcher Service Chief: AMAN SANTOS ([id number])[facility] [place] (SB[facility])[address] [place] [address] [place] Creatinine [Mass/Vol] 0.64 mg/dL Normal 0.57-1.11 [facility] Comment on above: Performed By: #### L AB17 ####Dispatcher Service Chief: AMAN SANTOS ([id number])[facility] [place] ([facility])[address] GLOMERULAR FILTRATION RATE ML/MIN/1.73 SQ M.PREDICTED >90.0 Normal >60.0 [facility] Comment on above: Result Comment: Calc ulation based on the Chronic Kidney Disease Epidemiology Collaboration (CKD-EPI) equation refit without adjustment for race Performed By: #### L AB17 ####Dispatcher Service Chief: AMAN SANTOS ([id number])[facility] [place] ([facility])[address] Glucose [Mass/Vol] 131 mg/dL High 82-115 [facility] Comment on above: Performed By: #### L AB17 ####Dispatcher Service Chief: AMAN SANTOS ([id number])[facility] [place] ([facility])[address] Potassium [Moles/Vol] 3.9 mmol/L Normal 3.5-5.1 [facility] Comment on above: Result Comment: [facility] potassium values may be up to 0.5 mmol/L lower than serum values. Performed By: #### L AB17 ####Dispatcher Service Chief: AMAN SANTOS ([id number])[facility] [place] ([facility])[address] Protein [Mass/Vol] 5.8 g/dL Low 6.4-8.3 [facility] Comment on above: Performed By: #### L AB17 ####Dispatcher Service Chief: AMAN SANTOS ([id number])[facility] [place] ([facility])[address] [place] [address] [place] Sodium [Moles/Vol] 143 mmol/L Normal 136-145 [facility] Comment on above: Performed By: #### L AB17 ####Dispatcher Service Chief: AMAN SANTOS ([id number])[facility] [place] ([facility])[address] [place] [address] [place] Urea nitrogen [Mass/Vol] 13 mg/dL Normal 9-23 [facility] Comment on above: Performed By: #### L AB17 ####Dispatcher Service Chief: AMAN SANTOS ([id number])[facility] [place] ([facility])[address] Comprehensive metabolic 1998 panelon 02-21-2024 Albumin [Mass/Vol] 3.6 g/dL 3.4 - 4.8 g/dL [facility] ALP [Catalytic activity/Vol] 80 U/L 40 - 150 U/L [facility] ALT [Catalytic activity/Vol] 17 U/L NINF - 30 U/L [facility] Anion gap [Moles/Vol] 5 mmol/L 3 - 13 mmol/L [facility] AST [Catalytic activity/Vol] 13 U/L NINF - 34 U/L [facility] Bilirubin [Mass/Vol] 1.3 mg/dL High NINF - 1.2 mg/dL [facility] Calcium [Mass/Vol] 9.5 mg/dL 8.8 - 10. 0 mg/dL [facility] Chloride [Moles/Vol] 100 mmol/L 98 - 10 7 mmol/L [facility] CO2 [Moles/Vol] 38 mmol/L High 23 - 31 mmol/L [facility] Creatinine [Mass/Vol] 0.64 mg/dL 0.57 - 1.11 mg/dL [facility] GFR/1.73 sq M.predicted (S/P/Bld) [Vol rate/Area] - PINF [facility] Comment on above: Calculation based on the Chronic Kidney Disease Epidemiology Collaboration (CKD-EPI) equation refit without adjustment for race Glucose [Mass/Vol] 131 mg/dL High 82 - 115 mg/dL [facility] Interpretation and review of laboratory results Abnormal [facility] Potassium [Moles/Vol] 3.9 mmol/L 3.5 - 5.1 mmol/L [facility] Comment on above: Plasma potassium imer ues may be up to 0.5 mmol/L lower than serum values. Protein [Mass/Vol] 5.8 g/dL Low 6.4 - 8.3 g/dL [facility] Sodium [Moles/Vol] 143 mmol/L 136 - 145 mmol/L [facility] Urea nitrogen [Mass/Vol] 13 mg/dL 9 - 23 mg/dL [facility] Consulton 02-21-2024 Consult Normal [facility] Progress Noteon 02-21-2024 Progress Note Normal [facility] Progress Note Normal [facility] Progress Note Normal [facility] Progress Note Normal [facility] Progress Note Nutrition update completed. Chart reviewed. Patient continues as a level 1. Normal [facility] 30on 02-20-2024 30 Normal [facility] 30 Normal [facility] [id number] 02-20-2024 [id number] Reviewed joseph iyer светлана auth is still pending. Normal [facility] Bacteria identified Cx Nom ( Bld)on 02-20-2024 Interpretation and review of laboratory results Normal [facility] Blood Collection Sit e: Left Antecubital [facility] Blood Collection Sit e: Right Hand [facility] CBC (HEMOGRAM)on 02-20-2024 Erythrocyte distribution width (RBC) [Ratio] 15.9 % High 11.5-15.0 [facility] Comment on above: Performed By: #### L [id number] ####Dispatcher Service Chief: AMAN SANTOS ([id number])[facility] ([facility])[address] [place] [address] Hematocrit (Bld) [Volume fraction] 35.6 % Normal 35.0-47.0 [facility] Comment on above: Performed By: #### L AB294 ####Dispatcher Service Chief: AMAN SANTOS ([id number])[facility] ([facility])[address] [place] [address] Hemoglobin (Bld) [Mass/Vol] 10.5 g/dL Low 11.7-16.0 [facility] Comment on above: Performed By: #### L AB294 ####Dispatcher Service Chief: AMAN SANTOS ([id number])[facility] ([facility])[address] [place] [address] MCH (RBC) [Entitic mass] 27.6 pg Normal 26.0-34.0 [facility] Comment on above: Performed By: #### L [id number] ####Dispatcher Service Chief: AMAN SANTOS ([phone])[facility] ([facility])[address] [place] [address] MCHC 29.5 % Low 30.5-36.0 [facility] Comment on above: Performed By: #### L [id number] ####Dispatcher Service Chief: AMAN SANTOS ([phone])WISAM MIJARESAmrik (SBHLAB)[address] MCV (RBC) [Entitic vol] 93.4 fL Normal 77.0-99.0 [facility] Comment on above: Performed By: #### L [id number] ####Dispatcher Service Chief: AMAN SANTOS ([id number])[facility] CENTERBessy MARTINEZISAMARN (SBHLAB)[address] Platelet mean volume (Bld) [Entitic vol] 12.1 fL Normal 9.0-12.7 [facility] Comment on above: Performed By: #### L [id number] ####Dispatcher Service Chief: AMAN SANTOS ([id number])[facility] CENTERBessy MARTINEZISAMARN (SBHLAB)[address] Platelets (Bld) [#/Vol] 110 10*3/uL Low 140-440 [facility] Comment on above: Performed By: #### L [id number] ####Dispatcher Service Chief: AMAN SANTOS ([id number])[facility] CENTERBessy MARTINEZISAMARN (SBHLAB)[address] RBC (Bld) [#/Vol] 3.81 10*6/uL Normal 3.80-5.20 [facility] Comment on above: Performed By: #### L [id number] ####Dispatcher Service Chief: AMAN SANTOS ([id number])[facility] CENTERBessy MARTINEZISAMARN (SBHLAB)[address] WBC (Bld) [#/Vol] 12.9 10*3/uL High 3.6-10.7 [facility] Comment on above: Performed By: #### L [id number] ####Dispatcher Service Chief: AMAN SANTOS ([id number])[facility] CENTERBessy MARTINEZISAMARN (SBHLAB)[address] CBC panel Auto (Bld)Ordered By: Krystal Kraft on 02-20-2024 Erythrocyte distribution width (RBC) [Ratio] 15.9 % High 11.5 - 15.0 % [facility] Hematocrit (Bld) [Volume fraction] 35.6 % 35.0 - 47.0 % [facility] Hemoglobin (Bld) [Mass/Vol] 10.5 g/dL Low 11.7 - 16.0 g/dL [facility] Interpretation and review of laboratory results Abnormal [facility] MCH (RBC) [Entitic mass] 27.6 pg 26.0 - 34.0 pg [facility] MCHC (RBC) [Mass/Vol] 29.5 % Low 30.5 - 36.0 % [facility] MCV (RBC) [Entitic vol] 93.4 fL 77.0 - 99.0 fL [facility] Platelet mean volume (Bld) [Entitic vol] 12.1 fL 9.0 - 12.7 fL [facility] Platelets (Bld) [#/Vol] 110 10*3/uL Low 140 - 440 10*3/uL [facility] RBC (Bld) [#/Vol] 3.81 10*6/uL 3.80 - 5.2 0 10*6/uL [facility] WBC (Bld) [#/Vol] 12.9 10*3/uL High 3.6 - 10.7 10*3/uL [facility] COMPREHENSIVE METABOLIC PANE Amaury 02-20-2024 Albumin [Mass/Vol] 4.0 g/dL Normal 3.4-4.8 [facility] Comment on above: Performed By: #### L [id number] ####Dispatcher Service Chief: AMAN SANTOS ([id number])[facility] (SBHLAB)[address] ALP [Catalytic activity/Vol] 90 U/L Normal 40-150 [facility] Comment on above: Performed By: #### L [id number] ####Dispatcher Service Chief: AMAN SANTOS ([id number])[facility] (SBHLAB)[address] ALT [Catalytic activity/Vol] 18 U/L Normal <30 [facility] Comment on above: Performed By: #### L [id number] ####Dispatcher Service Chief: AMAN SANTOS ([id number])[facility]ENTERA [place] (SBHLAB)[address] Anion gap [Moles/Vol] 7 mmol/L Normal 3-13 [facility] Comment on above: Performed By: #### L [id number] ####Dispatcher Service Chief: AMAN SANTOS ([id number])[facility]ENTERA [place] (SBHLAB)[address] AST [Catalytic activity/Vol] 15 U/L Normal <34 [facility] Comment on above: Performed By: #### L [id number] ####Dispatcher Service Chief: AMAN SANTOS ([id number])[facility]ENTERA [place] (SBHLAB)[address] Bilirubin [Mass/Vol] 1.6 mg/dL High <1.2 [facility] Comment on above: Performed By: #### L [id number] ####Dispatcher Service Chief: AMAN SANTOS ([id number])[facility]ENTERA [place] (SBHLAB)[address] Calcium [Mass/Vol] 10.1 mg/dL High 8.8-10.0 [facility] Comment on above: Performed By: #### L [id number] ####Dispatcher Service Chief: AMAN SANTOS ([id number])[facility]ENTERA [place] (SBHLAB)[address] [place] [address] [place] Chloride [Moles/Vol] 100 mmol/L Normal 98-107 [facility] Comment on above: Performed By: #### L [id number] ####Dispatcher Service Chief: AMAN SANTOS ([id number])[facility]A [place] (SBHLAB)[address] CO2 [Moles/Vol] 37 mmol/L High 23-31 [facility] Comment on above: Performed By: #### L [id number] ####Dispatcher Service Chief: AMAN SANTOS ([id number])[facility]ENTERA [place] (SBHLAB)[address] Creatinine [Mass/Vol] 0.69 mg/dL Normal 0.57-1.11 [facility] Comment on above: Performed By: #### L [id number] ####Dispatcher Service Chief: AMAN SANTOS ([id number])[facility] CENTERBessy MARTINEZM[facility] (SBHLAB)[address] GLOMERULAR FILTRATION RATE ML/MIN/1.73 SQ M.PREDICTED >90.0 Normal >60.0 [facility] Comment on above: Result Comment: Calc ulation based on the Chronic Kidney Disease Epidemiology Collaboration (CKD-EPI) equation refit without adjustment for race Performed By: #### L [id number] ####Dispatcher Service Chief: AMAN SANTOS ([id number])[facility]ENTERBessy MARTINEZM[facility] (HLAB)[address] Glucose [Mass/Vol] 118 mg/dL High 82-115 [facility] Comment on above: Performed By: #### L [id number] ####Dispatcher Service Chief: AMAN SANTOS ([id number])[facility] (HLAB)[address] [place] [address] [place] Potassium [Moles/Vol] 4.0 mmol/L Normal 3.5-5.1 [facility] Comment on above: Result Comment: [facility] potassium values may be up to 0.5 mmol/L lower than serum values. Performed By: #### L AB17 ####Dispatcher Service Chief: AMAN SANTOS ([id number])[facility] CENTERBessy MARTINEZMOUNT [facility]RA[facility] (HLAB)[address] [place] [address] [place] Protein [Mass/Vol] 6.4 g/dL Normal 6.4-8.3 [facility] Comment on above: Performed By: #### L [id number] ####Dispatcher Service Chief: AMAN SANTOS ([id number])[facility] (SBHLAB)[address] Sodium [Moles/Vol] 144 mmol/L Normal 136-145 [facility] Comment on above: Performed By: #### L [id number] ####Dispatcher Service Chief: AMAN SANTOS ([id number])[facility] (SBHLAB)[address] Urea nitrogen [Mass/Vol] 16 mg/dL Normal 9- [facility] Comment on above: Performed By: #### L [id number] ####Dispatcher Service Chief: AMAN SANTOS ([id number])[facility] (SBHLAB)[address] Comprehensive metabolic 1998 panelon 02-20-2024 Albumin [Mass/Vol] 4 g/dL 3.4 - 4.8 g/dL [facility] ALP [Catalytic activity/Vol] 90 U/L 40 - 150 U/L [facility] ALT [Catalytic activity/Vol] 18 U/L NINF - 30 U/L [facility] Anion gap [Moles/Vol] 7 mmol/L 3 - 13 mmol/L [facility] AST [Catalytic activity/Vol] 15 U/L NINF - 34 U/L [facility] Bilirubin [Mass/Vol] 1.6 mg/dL High NINF - 1.2 mg/dL [facility] Calcium [Mass/Vol] 10.1 mg/dL High 8.8 - 10. 0 mg/dL [facility] Chloride [Moles/Vol] 100 mmol/L 98 - 10 7 mmol/L [facility] CO2 [Moles/Vol] 37 mmol/L High 23 - 31 mmol/L [facility] Creatinine [Mass/Vol] 0.69 mg/dL 0.57 - 1.11 mg/dL [facility] GFR/1.73 sq M.predicted (S/P/Bld) [Vol rate/Area] - PINF [facility] Comment on above: Calculation based on the Chronic Kidney Disease Epidemiology Collaboration (CKD-EPI) equation refit without adjustment for race Glucose [Mass/Vol] 118 mg/dL High 82 - 115 mg/dL [facility] Interpretation and review of laboratory results Abnormal [facility] Potassium [Moles/Vol] 4 mmol/L 3.5 - 5.1 mmol/L [facility] Comment on above: Plasma potassium imer ues may be up to 0.5 mmol/L lower than serum values. Protein [Mass/Vol] 6.4 g/dL 6.4 - 8.3 g/dL [facility] Sodium [Moles/Vol] 144 mmol/L 136 - 145 mmol/L [facility] Urea nitrogen [Mass/Vol] 16 mg/dL 9 - 23 mg/dL [facility] Laboratory - Microbiology an d Antimicrobial susceptibilityon 02-20-2024 Bacteria identified Cx Nom (Bld) No growth at 5 days [facility] Progress Noteon 02-20-2024 Progress Note Normal [facility] Progress Note Normal [facility] Progress Note Normal [facility] Progress Note Normal [facility] 30on 02-19-2024 30 Normal [facility] 30 Normal [facility] Nursing Noteon 02-19-2024 Nursing Note 0815- Daughter and physician at bedside. Patient hesitant to take any medications at this time. States we are trying to kill her. Medications explained. Showed medications to patient. Patient agreeable to take medications. Tanika Weiss RN 02/19/2024 Normal [facility] Nursing Note Normal [facility] Nursing Note Normal [facility] Progress Noteon 02-19-2024 Progress Note Normal [facility] Progress Note Normal [facility] 30on 02-18-2024 30 Normal [facility] [id number] 02-18-2024 [id number] Normal [facility] [id number] Normal [facility] [id number] Normal [facility] [id number] Normal [facility] CBC W Auto Differential pane l (Bld)on 02-18-2024 Erythrocyte distribution width (RBC) [Ratio] 16.1 % High 11.5 - 15.0 % [facility] Hematocrit (Bld) [Volume fraction] 34.1 % Low 35.0 - 47.0 % [facility] Hemoglobin (Bld) [Mass/Vol] 9.9 g/dL Low 11.7 - 16.0 g/dL [facility] MCH (RBC) [Entitic mass] 27.6 pg 26.0 - 34.0 pg [facility] MCHC (RBC) [Mass/Vol] 29 % Low 30.5 - 36.0 % [facility] MCV (RBC) [Entitic vol] 95 fL 77.0 - 99.0 fL [facility] Platelet mean volume (Bld) [Entitic vol] 12.6 fL 9.0 - 12.7 fL [facility] Platelets (Bld) [#/Vol] 109 10*3/uL Low 140 - 440 10*3/uL [facility] RBC (Bld) [#/Vol] 3.59 10*6/uL Low 3.80 - 5.2 0 10*6/uL [facility] WBC (Bld) [#/Vol] 14.4 10*3/uL High 3.6 - 10.7 10*3/uL [facility] CBC WITH AUTO DIFFERENTIALon 02-18-2024 Erythrocyte distribution width (RBC) [Ratio] 16.1 % High 11.5-15.0 [facility] Comment on above: Performed By: #### L [id number], [id number] ####Dispatcher Service Chief: AMAN SANTOS ([id number])[facility] ([facility] [place] [address] Hematocrit (Bld) [Volume fraction] 34.1 % Low 35.0-47.0 [facility] Comment on above: Performed By: #### L [id number], [id number] ####Dispatcher Service Chief: AMAN SANTOS ([id number])[facility] ([facility])[address] [place] [address] Hemoglobin (Bld) [Mass/Vol] 9.9 g/dL Low 11.7-16.0 [facility] Comment on above: Performed By: #### L [id number], [id number] ####Dispatcher Service Chief: AMAN SANTOS ([id number])[facility] (SBHLAB)[address] [place] [address] MCH (RBC) [Entitic mass] 27.6 pg Normal 26.0-34.0 [facility] Comment on above: Performed By: #### L [id number], [id number] ####Dispatcher Service Chief: AMAN SANTOS ([id number])[facility] (SBAB)[address] [place] [address] MCHC 29.0 % Low 30.5-36.0 [facility] Comment on above: Performed By: #### L [id number], [id number] ####Dispatcher Service Chief: AMAN SANTOS ([id number])LJA [place] (SBHLAB)[address] MCV (RBC) [Entitic vol] 95.0 fL Normal 77.0-99.0 [facility] Comment on above: Performed By: #### L [id number], [id number] ####Dispatcher Service Chief: AMAN SANTOS ([id number])[facility]A [place] (SBHLAB)[address] Platelet mean volume (Bld) [Entitic vol] 12.6 fL Normal 9.0-12.7 [facility] Comment on above: Performed By: #### L [id number], [id number] ####Dispatcher Service Chief: AMAN SANTOS ([id number])[facility] [place] (SBHLAB)[address] [place] [address] [place] Platelets (Bld) [#/Vol] 109 10*3/uL Low 140-440 [facility] Comment on above: Performed By: #### L [id number], [id number] ####Dispatcher Service Chief: AMAN SANTOS ([id number])[facility] CENTERBessy MARTINEZERTON (SBHLAB)[address] RBC (Bld) [#/Vol] 3.59 10*6/uL Low 3.80-5.20 [facility] Comment on above: Performed By: #### L [id number], [id number] ####Dispatcher Service Chief: AMAN SANTOS ([id number])[facility] [place] (SBHLAB)[address] [place] [address] [place] WBC (Bld) [#/Vol] 14.4 10*3/uL High 3.6-10.7 [facility] Comment on above: Performed By: #### L [id number], [id number] ####Dispatcher Service Chief: AMAN SANTOS ([id number])[facility] [place] (SBHLAB)[address] COMPREHENSIVE METABOLIC PANE Amaury 02-18-2024 Albumin [Mass/Vol] 3.7 g/dL Normal 3.4-4.8 [facility] Comment on above: Performed By: #### L [id number] ####Dispatcher Service Chief: AMAN SANTOS ([id number])[facility] [place] (SBHLAB)[address] ALP [Catalytic activity/Vol] 81 U/L Normal 40-150 [facility] Comment on above: Performed By: #### L [id number] ####Dispatcher Service Chief: AMAN SANTOS ([id number])[facility] [place] (SBHLAB)[address] ALT [Catalytic activity/Vol] 15 U/L Normal <30 [facility] Comment on above: Performed By: #### L [id number] ####Dispatcher Service Chief: AMAN SANTOS ([id number])[facility] [place] (SBHLAB)[address] Anion gap [Moles/Vol] 8 mmol/L Normal 3-13 [facility] Comment on above: Performed By: #### L [id number] ####Dispatcher Service Chief: AMAN SANTOS ([id number])[facility] [place] (SBHLAB)[address] AST [Catalytic activity/Vol] 14 U/L Normal <34 [facility] Comment on above: Performed By: #### L [id number] ####Dispatcher Service Chief: AMAN SANTOS ([id number])[facility] [place] (SBHLAB)[address] [place] [address] [place] Bilirubin [Mass/Vol] 1.2 mg/dL High <1.2 [facility] Comment on above: Performed By: #### L [id number] ####Dispatcher Service Chief: AMAN SANTOS ([id number])[facility] [place] (SBHLAB)[address] [place] [address] [place] Calcium [Mass/Vol] 9.2 mg/dL Normal 8.8-10.0 [facility] Comment on above: Performed By: #### L AB17 ####Dispatcher Service Chief: AMAN SANTOS ([id number])[facility] [place] (SBHLAB)[address] [place] [address] [place] Chloride [Moles/Vol] 101 mmol/L Normal 98-107 [facility] Comment on above: Performed By: #### L AB17 ####Dispatcher Service Chief: AMAN SANTOS ([id number])[facility] [place] (SBHLAB)[address] CO2 [Moles/Vol] 34 mmol/L High 23-31 [facility] Comment on above: Performed By: #### L [id number] ####Dispatcher Service Chief: AMAN SANTOS ([id number])[facility] (SBHLAB)[address] Creatinine [Mass/Vol] 0.64 mg/dL Normal 0.57-1.11 [facility] Comment on above: Performed By: #### L AB17 ####Dispatcher Service Chief: AMAN SANTOS ([id number])[facility] [place] (HLAB)[address] GLOMERULAR FILTRATION RATE ML/MIN/1.73 SQ M.PREDICTED >90.0 Normal >60.0 [facility] Comment on above: Result Comment: Calc ulation based on the Chronic Kidney Disease Epidemiology Collaboration (CKD-EPI) equation refit without adjustment for race Performed By: #### L AB17 ####Dispatcher Service Chief: AMAN SANTOS ([id number])[facility] [place] (SBHLAB)[address] [place] [address] [place] Glucose [Mass/Vol] 116 mg/dL High 82-115 [facility] Comment on above: Performed By: #### L AB17 ####Dispatcher Service Chief: AMAN SANTOS ([id number])[facility] [place] (SBHLAB)[address] [place] [address] [place] Potassium [Moles/Vol] 3.7 mmol/L Normal 3.5-5.1 [facility] Comment on above: Result Comment: [facility] potassium values may be up to 0.5 mmol/L lower than serum values. Performed By: #### L AB17 ####Dispatcher Service Chief: AMAN SANTOS ([id number])[facility] [place] (SBHLAB)[address] Protein [Mass/Vol] 6.0 g/dL Low 6.4-8.3 [facility] Comment on above: Performed By: #### L AB17 ####Dispatcher Service Chief: AMAN SANTOS ([id number])[facility] [place] (SBHLAB)[address] Sodium [Moles/Vol] 143 mmol/L Normal 136-145 [facility] Comment on above: Performed By: #### L [id number] ####Dispatcher Service Chief: AMAN SANTOS ([id number])[facility] (SBHLAB)[address] Urea nitrogen [Mass/Vol] 14 mg/dL Normal 9-23 [facility] Comment on above: Performed By: #### L AB17 ####Dispatcher Service Chief: AMAN SANTOS ([id number])[facility] (SB[facility])[address] [place] [address] Comprehensive metabolic 1998 panelon 02-18-2024 Albumin [Mass/Vol] 3.7 g/dL 3.4 - 4.8 g/dL [facility] ALP [Catalytic activity/Vol] 81 U/L 40 - 150 U/L [facility] ALT [Catalytic activity/Vol] 15 U/L NINF - 30 U/L [facility] Anion gap [Moles/Vol] 8 mmol/L 3 - 13 mmol/L [facility] AST [Catalytic activity/Vol] 14 U/L NINF - 34 U/L [facility] Bilirubin [Mass/Vol] 1.2 mg/dL High NINF - 1.2 mg/dL [facility] Calcium [Mass/Vol] 9.2 mg/dL 8.8 - 10. 0 mg/dL [facility] Chloride [Moles/Vol] 101 mmol/L 98 - 10 7 mmol/L [facility] CO2 [Moles/Vol] 34 mmol/L High 23 - 31 mmol/L [facility] Creatinine [Mass/Vol] 0.64 mg/dL 0.57 - 1.11 mg/dL [facility] GFR/1.73 sq M.predicted (S/P/Bld) [Vol rate/Area] - PINF [facility] Comment on above: Calculation based on the Chronic Kidney Disease Epidemiology Collaboration (CKD-EPI) equation refit without adjustment for race Glucose [Mass/Vol] 116 mg/dL High 82 - 115 mg/dL [facility] Interpretation and review of laboratory results Abnormal [facility] Potassium [Moles/Vol] 3.7 mmol/L 3.5 - 5.1 mmol/L [facility] Comment on above: Plasma potassium imer ues may be up to 0.5 mmol/L lower than serum values. Protein [Mass/Vol] 6 g/dL Low 6.4 - 8.3 g/dL [facility] Sodium [Moles/Vol] 143 mmol/L 136 - 145 mmol/L [facility] Urea nitrogen [Mass/Vol] 14 mg/dL 9 - 23 mg/dL [facility] Laboratory - Hematology and Cell countson 02-18-2024 Band form neutrophils (Bld) [#/Vol] 0.1 10*3/uL High NINF - 0.0 10*3/uL [facility] Band form neutrophils/100 WBC (Bld) 1 % High NINF - 0 % [facility] Eosinophils (Bld) [#/Vol] 0.1 10*3/uL 0.0 - 0.5 10*3/uL [facility] Eosinophils/100 WBC (Bld) 1 % 0 - 6 % [facility] Hypochromia Ql (Bld) Moderate Abnormal (none) [facility] Lymphocytes (Bld) [#/Vol] 0.9 10*3/uL Low 1.0 - 4.3 10*3/uL [facility] Lymphocytes/100 WBC (Bld) 6 % Low 15 - 45 % [facility] Monocytes (Bld) [#/Vol] 2.9 10*3/uL High 0.0 - 0.9 10*3/uL [facility] Monocytes/100 WBC (Bld) 20 % High 5 - 13 % [facility] Neutrophils (Bld) [#/Vol] 10.4 10*3/uL High 1.8 - 7.5 10*3/uL [facility] Poikilocytosis LM Ql (Bld) Slight Abnormal (none) [facility] RBC morphology finding Nom (Bld) abnormal [facility] Segmented neutrophils/100 WBC (Bld) 71 % 38 - 82 % [facility] Stomatocytes LM Ql (Bld) Moderate Abnormal (none) [facility] MANUAL DIFFERENTIAL (CELLAVI TANYA)on 02-18-2024 BAND NEUTROPHILS TOTAL PER COUNTED LEUKOCYTES BY MANUAL COUNT 1 Normal [facility] Comment on above: Performed By: #### L [id number], [id number] ####Dispatcher Service Chief: AMAN SANTOS ([id number])[facility] (SB[facility])[address] BANDS (10*3/UL) IN BLOOD-CELLAVISION 0.1 10*3/uL High <=0.0 [facility] Comment on above: Performed By: #### L [id number], [id number] ####Dispatcher Service Chief: AMAN SANTOS ([id number])[facility] [place] (SBHLAB)[address] BASOPHILS TOTAL PER COUNTED LEUKOCYTES BY MANUAL COUNT Normal [facility] Comment on above: Performed By: #### L [id number], [id number] ####Dispatcher Service Chief: AMAN SANTOS ([id number])[facility] [place] (SBHLAB)[address] BLASTS TOTAL PER COUNTED LEUKOCYTES BY MANUAL COUNT Normal [facility] Comment on above: Performed By: #### L [id number], [id number] ####Dispatcher Service Chief: AMAN SANTOS ([id number])[facility] (SBHLAB)[address] EOSINOPHILS (10*3/UL) IN BLOOD-CELLAVISION 0.1 10*3/uL Normal 0.0-0.5 [facility] Comment on above: Performed By: #### L [id number], [id number] ####Dispatcher Service Chief: AMAN HEARDOMID ([id number])[facility] [place] (SBHLAB)[address] [place] [address] [place] EOSINOPHILS TOTAL PER COUNTED LEUKOCYTES BY MANUAL COUNT 1 Normal 0-1 [facility] Comment on above: Performed By: #### L [id number], [id number] ####Dispatcher Service Chief: AMAN HEARDOMID ([id number])[facility] [place] (SBHLAB)[address] [place] [address] [place] EOSINOPHILS/100 LEUKOCYTES IN BLOOD-CELLAVISION 1 % Normal 0-6 [facility] Comment on above: Performed By: #### L [id number], [id number] ####Dispatcher Service Chief: AMAN MEDINAANGELA ([id number])[facility] [place] (SBHLAB)[address] [place] [address] [place] HYPOCHROMIA (PRESENCE) IN BLOOD BY LIGHT MICROSCOPY Moderate Abnormal (none) [facility] Comment on above: Performed By: #### L [id number], [id number] ####Dispatcher Service Chief: AMAN MEDINAANGELA ([id number])[facility] [place] (SBHL[facility])[address] [place] [address] [place] LYMPHOCYTES (10*3/UL) IN BLOOD-CELLAVISION 0.9 10*3/uL Low 1.0-4.3 [facility] Comment on above: Performed By: #### L [id number], [id number] ####Dispatcher Service Chief: AMAN SANTOS ([id number])[facility] [place] (SBHLAB)[address] [place] [address] [place] LYMPHOCYTES TOTAL PER COUNTED LEUKOCYTES BY MANUAL COUNT 7 Normal [facility] Comment on above: Performed By: #### L [id number], [id number] ####Dispatcher Service Chief: AMAN HEARDOMID ([id number])[facility] [place] (SBHLAB)[address] [place] [address] [place] LYMPHOCYTES/100 LEUKOCYTES IN BLOOD-CELLAVISION 6 % Low 15-45 [facility] Comment on above: Performed By: #### L [id number], [id number] ####Dispatcher Service Chief: AMAN HEARDOMID ([id number])[facility] [place] (SBHLAB)[address] [place] [address] [place] METAMYELOCYTES TOTAL PER COUNTED LEUKOCYTES BY MANUAL COUNT Normal [facility] Comment on above: Performed By: #### L [id number], [id number] ####Dispatcher Service Chief: AMAN SANTOS ([id number])[facility] [place] (SBHLAB)[address] [place] [address] [place] MONOCYTES (10*3/UL) IN BLOOD-CELLAVISION 2.9 10*3/uL High 0.0-0.9 [facility] Comment on above: Performed By: #### L [id number], [id number] ####Dispatcher Service Chief: AMAN HEARDOMID ([id number])[facility] [place] (SBHL[facility])[address] [place] [address] [place] MONOCYTES TOTAL PER COUNTED LEUKOCYTES BY MANUAL COUNT [address] [facility] Comment on above: Performed By: #### L [id number], [id number] ####Dispatcher Service Chief: AMAN SANTOS ([id number])[facility] [place] ([facility])[address] [place] [address] [place] MONOCYTES/100 LEUKOCYTES IN BLOOD-IBETH 20 % High 5-13 [facility] Comment on above: Performed By: #### L [id number], [id number] ####Dispatcher Service Chief: AMAN SANTOS ([id number])[facility] [place] ([facility])[address] [place] [address] [place] MYELOCYTES COUNTED BY MANUAL COUNT Normal [facility] Comment on above: Performed By: #### L [id number], [id number] ####Dispatcher Service Chief: AMAN HEARDOMID ([id number])[facility] [place] ([facility])[address] [place] [address] [place] NEUTROPHILS BAND FORM/100 LEUKOCYTES IN BLOOD-CELLAVISI 1 % High <=0 [facility] Comment on above: Performed By: #### L [id number], [id number] ####Dispatcher Service Chief: AMAN TOM ([id number])[facility] [place] ([facility])[address] [place] [address] [place] NEUTROPHILS TOTAL PER COUNTED LEUKOCYTES BY MANUAL COUNT 78 Normal [facility] Comment on above: Performed By: #### L [id number], [id number] ####Dispatcher Service Chief: AMAN TOM ([id number])[facility] [place] ([facility])[address] POIKILOCYTOSIS (PRESENCE) IN BLOOD BY LIGHT MICROSCOPY Slight Abnormal (none) [facility] Comment on above: Performed By: #### L [id number], [id number] ####Dispatcher Service Chief: AMAN TOM ([id number])[facility] [place] ([facility])[address] PROMYELOCYTES TOTAL PER COUNTED LEUKOCYTES BY MANUAL COUNT Normal [facility] Comment on above: Performed By: #### L [id number], [id number] ####Dispatcher Service Chief: AMAN TOM ([id number])[facility] [place] ([facility])[address] [place] [address] [place] RBC MORPHOLOGY IN BLOOD abnormal Normal [facility] Comment on above: Performed By: #### L [id number], [id number] ####Dispatcher Service Chief: AMAN MEDINAANGELA ([id number])[facility] [place] ([facility])[address] [place] [address] [place] SEGMENTED NEUTROPHILS (10*3/UL) IN BLOOD-CELLAVISION 10.4 10*3/uL High 1.8-7.5 [facility] Comment on above: Performed By: #### L [id number], [id number] ####Dispatcher Service Chief: AMAN MEDINAANGELA ([id number])[facility] [place] ([facility])[address] [place] [address] [place] SEGMENTED NEUTROPHILS/100 LEUKOCYTES-CE 71 % Normal 38-82 [facility] Comment on above: Performed By: #### L [id number], [id number] ####Dispatcher Service Chief: AMAN SANTOS ([id number])[facility] [place] ([facility])[address] STOMATOCYTES IN BLOOD BY LIGHT MICROSCOPY Moderate Abnormal (none) [facility] Comment on above: Performed By: #### L [id number], [id number] ####Dispatcher Service Chief: AMAN SANTOS ([id number])[facility] [place] ([facility])[address] UNCLASSIFIED CELLS TOTAL PER COUNTED LEUKOCYTES BY MANUAL COUNT Normal [facility] Comment on above: Performed By: #### L [id number], [id number] ####Dispatcher Service Chief: AMAN SANTOS ([id number])[facility] ([facility])[address] VARIANT LYMPHOCYTES TOTAL PER COUNTED LEUKOCYTES BY MANUAL COUNT Normal [facility] Comment on above: Performed By: #### L [id number], [id number] ####Dispatcher Service Chief: AMAN HEARDOMID ([id number])[facility] ([facility])[address] No Panel Informationon 02-17 Atypical Lymphocytes Manual [facility] Bands Manual 1 [facility] Basophils Manual [facility] Blasts Manual [facility] Eosinophils Manual 1 0 - 1 [facility] Interpretation and review of laboratory results Abnormal [facility] Lymphocytes Manual 7 [facility] Metamyelocytes Manual [facility] Monocytes Manual 22 [facility] Myelocytes Manual [facility] Neutrophils Manual 78 [facility] Promyelocytes Manual [facility] Unclassified Cells, Manual [facility] Progress Noteon 02-18-2024 Progress Note Normal [facility] Progress Note Normal [facility] Progress Note Normal [facility] 30on 02-17-2024 30 Normal [facility] [id number] 02-17-2024 [id number] Normal [facility] [id number] Normal [facility] 36on 02-17-2024 36 Pt scheduled. Normal [facility] CBC W Auto Differential pane l (Bld)on 02-17-2024 Erythrocyte distribution width (RBC) [Ratio] 16.3 % High 11.5 - 15.0 % [facility] Hematocrit (Bld) [Volume fraction] 31.9 % Low 35.0 - 47.0 % [facility] Hemoglobin (Bld) [Mass/Vol] 9.3 g/dL Low 11.7 - 16.0 g/dL [facility] Interpretation and review of laboratory results Abnormal [facility] IPF 10 [facility] MCH (RBC) [Entitic mass] 27.7 pg 26.0 - 34.0 pg [facility] MCHC (RBC) [Mass/Vol] 29.2 % Low 30.5 - 36.0 % [facility] MCV (RBC) [Entitic vol] 94.9 fL 77.0 - 99.0 fL [facility] Platelet mean volume (Bld) [Entitic vol] 12.6 fL 9.0 - 12.7 fL [facility] Platelets (Bld) [#/Vol] 90 10*3/uL Low 140 - 440 10*3/uL [facility] RBC (Bld) [#/Vol] 3.36 10*6/uL Low 3.80 - 5.2 0 10*6/uL [facility] WBC (Bld) [#/Vol] 11.3 10*3/uL High 3.6 - 10.7 10*3/uL [facility] CBC WITH AUTO DIFFERENTIALon 02-17-2024 Erythrocyte distribution width (RBC) [Ratio] 16.3 % High 11.5-15.0 [facility] Comment on above: Performed By: #### L [id number], [id number] ####Dispatcher Service Chief: AMAN SANTOS ([id number])[facility] ([facility])[address] [place] [address] Hematocrit (Bld) [Volume fraction] 31.9 % Low 35.0-47.0 [facility] Comment on above: Performed By: #### L [id number], [id number] ####Dispatcher Service Chief: AMAN SANTOS ([id number])[facility] ([facility])[address] Hemoglobin (Bld) [Mass/Vol] 9.3 g/dL Low 11.7-16.0 [facility] Comment on above: Performed By: #### L [id number], [id number] ####Dispatcher Service Chief: AMAN SANTOS ([id number])[facility]ENTERBessy [facility] (SB[facility])[address] IPF 10 Normal [facility] Comment on above: Performed By: #### L [id number], [id number] ####Dispatcher Service Chief: AMAN SANTOS ([id number])[facility]ENTER[facility] (SB[facility])[address] MCH (RBC) [Entitic mass] 27.7 pg Normal 26.0-34.0 [facility] Comment on above: Performed By: #### L [id number], [id number] ####Dispatcher Service Chief: AMAN SANTOS ([id number])[facility] (SB[facility])[address] MCHC 29.2 % Low 30.5-36.0 [facility] Comment on above: Performed By: #### L [id number], [id number] ####Dispatcher Service Chief: AMAN SANTOS ([id number])[facility]ENTER[facility] ([facility])[address] MCV (RBC) [Entitic vol] 94.9 fL Normal 77.0-99.0 [facility] Comment on above: Performed By: #### L [id number], [id number] ####Dispatcher Service Chief: AMAN SANTOS ([id number])[facility]ENTER[facility] [place] (SBHLAB)[address] Platelet mean volume (Bld) [Entitic vol] 12.6 fL Normal 9.0-12.7 [facility] Comment on above: Performed By: #### L [id number], [id number] ####Dispatcher Service Chief: AMAN SANTOS ([id number])[facility]ENTER[facility]essy [facility] (SB[facility])[address] Platelets (Bld) [#/Vol] 90 10*3/uL Low 140-440 [facility] Comment on above: Performed By: #### L [id number], [id number] ####Dispatcher Service Chief: AMAN SANTOS ([id number])[facility] [place] ([facility])[address] RBC (Bld) [#/Vol] 3.36 10*6/uL Low 3.80-5.20 [facility] Comment on above: Performed By: #### L [id number], [id number] ####Dispatcher Service Chief: AMAN SANTOS ([id number])[facility] ([facility])[address] WBC (Bld) [#/Vol] 11.3 10*3/uL High 3.6-10.7 [facility] Comment on above: Performed By: #### L [id number], [id number] ####Dispatcher Service Chief: AMAN SANTOS ([id number])[facility] ([facility])[address] COMPREHENSIVE METABOLIC PANE Amaury 02-17-2024 Albumin [Mass/Vol] 3.5 g/dL Normal 3.4-4.8 [facility] Comment on above: Performed By: #### L [id number] ####Dispatcher Service Chief: AMAN SANTOS ([id number])[facility] ([facility])[address] ALP [Catalytic activity/Vol] 73 U/L Normal 40-150 [facility] Comment on above: Performed By: #### L [id number] ####Dispatcher Service Chief: AMAN SANTOS ([id number])[facility] [place] ([facility])[address] ALT [Catalytic activity/Vol] 15 U/L Normal <30 [facility] Comment on above: Performed By: #### L [id number] ####Dispatcher Service Chief: AMAN SANTOS ([id number])[facility] ([facility])[address] Anion gap [Moles/Vol] 4 mmol/L Normal 3-13 [facility] Comment on above: Performed By: #### L [id number] ####Dispatcher Service Chief: AMAN SANTOS ([id number])[facility] ([facility])[address] AST [Catalytic activity/Vol] 14 U/L Normal <34 [facility] Comment on above: Performed By: #### L [id number] ####Dispatcher Service Chief: AMAN SANTOS ([id number])[facility] ([facility])[address] Bilirubin [Mass/Vol] 1.1 mg/dL Normal <1.2 [facility] Comment on above: Performed By: #### L [id number] ####Dispatcher Service Chief: AMAN SANTOS ([id number])[facility] ([facility])[address] Calcium [Mass/Vol] 9.1 mg/dL Normal 8.8-10.0 [facility] Comment on above: Performed By: #### L [id number] ####Dispatcher Service Chief: AMAN SANTOS ([id number])[facility] ([facility])[address] Chloride [Moles/Vol] 103 mmol/L Normal 98-107 [facility] Comment on above: Performed By: #### L [id number] ####Dispatcher Service Chief: AMAN SANTOS ([id number])[facility] (SB[facility])[address] [place] [address] [place] CO2 [Moles/Vol] 35 mmol/L High 23-31 [facility] Comment on above: Performed By: #### L [id number] ####Dispatcher Service Chief: MAAN SANTOS ([id number])[facility] (SB[facility])[address] Creatinine [Mass/Vol] 0.71 mg/dL Normal 0.57-1.11 [facility] Comment on above: Performed By: #### L [id number] ####Dispatcher Service Chief: AMAN SANTOS ([id number])[facility] (SB[facility])[address] GLOMERULAR FILTRATION RATE ML/MIN/1.73 SQ M.PREDICTED >90.0 Normal >60.0 [facility] Comment on above: Result Comment: Calc ulation based on the Chronic Kidney Disease Epidemiology Collaboration (CKD-EPI) equation refit without adjustment for race Performed By: #### L [id number] ####Dispatcher Service Chief: AMAN SANTOS ([id number])[facility] ([facility])[address] Glucose [Mass/Vol] 134 mg/dL High 82-115 [facility] Comment on above: Performed By: #### L [id number] ####Dispatcher Service Chief: AMAN SANTOS ([id number])[facility] (HLAB)[address] Potassium [Moles/Vol] 3.9 mmol/L Normal 3.5-5.1 [facility] Comment on above: Result Comment: [facility] potassium values may be up to 0.5 mmol/L lower than serum values. Performed By: #### L [id number] ####Dispatcher Service Chief: AMAN SANTOS ([phone])[facility] (HLAB)[address] Protein [Mass/Vol] 5.5 g/dL Low 6.4-8.3 [facility] Comment on above: Performed By: #### L [id number] ####Dispatcher Service Chief: AMAN SANTOS ([id number])[facility] (SB[facility])[address] [place] [address] [place] Sodium [Moles/Vol] 142 mmol/L Normal 136-145 [facility] Comment on above: Performed By: #### L [id number] ####Dispatcher Service Chief: AMAN SANTOS ([id number])[facility] ([facility])[address] [place] [address] [place] Urea nitrogen [Mass/Vol] 17 mg/dL Normal 9-23 [facility] Comment on above: Performed By: #### L [id number] ####Dispatcher Service Chief: AMAN SANTOS ([id number])[facility] [place]LYN (SB[facility])[address] [place] [address] Comprehensive metabolic 1998 panelOrdered By: Spencer Workman on 02-17-2024 Albumin [Mass/Vol] 3.5 g/dL 3.4 - 4.8 g/dL [facility] ALP [Catalytic activity/Vol] 73 U/L 40 - 150 U/L [facility] ALT [Catalytic activity/Vol] 15 U/L NINF - 30 U/L [facility] Anion gap [Moles/Vol] 4 mmol/L 3 - 13 mmol/L [facility] AST [Catalytic activity/Vol] 14 U/L NINF - 34 U/L [facility] Bilirubin [Mass/Vol] 1.1 mg/dL NINF - 1.2 mg/dL [facility] Calcium [Mass/Vol] 9.1 mg/dL 8.8 - 10. 0 mg/dL [facility] Chloride [Moles/Vol] 103 mmol/L 98 - 10 7 mmol/L [facility] CO2 [Moles/Vol] 35 mmol/L High 23 - 31 mmol/L [facility] Creatinine [Mass/Vol] 0.71 mg/dL 0.57 - 1.11 mg/dL [facility] GFR/1.73 sq M.predicted (S/P/Bld) [Vol rate/Area] - PINF [facility] Comment on above: Calculation based on the Chronic Kidney Disease Epidemiology Collaboration (CKD-EPI) equation refit without adjustment for race Glucose [Mass/Vol] 134 mg/dL High 82 - 115 mg/dL [facility] Interpretation and review of laboratory results Abnormal [facility] Potassium [Moles/Vol] 3.9 mmol/L 3.5 - 5.1 mmol/L [facility] Comment on above: Plasma potassium imer ues may be up to 0.5 mmol/L lower than serum values. Protein [Mass/Vol] 5.5 g/dL Low 6.4 - 8.3 g/dL [facility] Sodium [Moles/Vol] 142 mmol/L 136 - 145 mmol/L [facility] Urea nitrogen [Mass/Vol] 17 mg/dL 9 - 23 mg/dL [facility] Consulton 02-17-2024 Consult Normal [facility] Laboratory - Hematology and Cell countson 02-17-2024 Hypochromia Ql (Bld) Slight Abnormal (none) [facility] Lymphocytes (Bld) [#/Vol] 0.9 10*3/uL Low 1.0 - 4.3 10*3/uL [facility] Lymphocytes/100 WBC (Bld) 8 % Low 15 - 45 % [facility] Monocytes (Bld) [#/Vol] 2.4 10*3/uL High 0.0 - 0.9 10*3/uL [facility] Monocytes/100 WBC (Bld) 21 % High 5 - 13 % [facility] Neutrophils (Bld) [#/Vol] 8.1 10*3/uL High 1.8 - 7.5 10*3/uL [facility] Poikilocytosis LM Ql (Bld) Slight Abnormal (none) [facility] RBC morphology finding Nom (Bld) abnormal [facility] Segmented neutrophils/100 WBC (Bld) 72 % 38 - 82 % [facility] Stomatocytes LM Ql (Bld) Moderate Abnormal (none) [facility] MANUAL DIFFERENTIAL (CELLAVI TANYA)on 02-17-2024 BAND NEUTROPHILS TOTAL PER COUNTED LEUKOCYTES BY MANUAL COUNT [facility] Comment on above: Performed By: #### L [id number], [id number] ####Dispatcher Service Chief: AMAN SANTOS ([id number])[facility] ([facility])[address] [place] [address] BASOPHILS TOTAL PER COUNTED LEUKOCYTES BY MANUAL COUNT [facility] Comment on above: Performed By: #### L [id number], [id number] ####Dispatcher Service Chief: AMAN SANTOS ([id number])[facility] ([facility])[address] BLASTS TOTAL PER COUNTED LEUKOCYTES BY MANUAL COUNT [facility] Comment on above: Performed By: #### L [id number], [id number] ####Dispatcher Service Chief: AMAN SANTOS ([id number])[facility] (SB[facility])[address] [place] [address] [place] EOSINOPHILS TOTAL PER COUNTED LEUKOCYTES BY MANUAL COUNT Normal [facility] Comment on above: Performed By: #### L [id number], [id number] ####Dispatcher Service Chief: AMAN SANTOS ([id number])[facility] [place] ([facility])[address] HYPOCHROMIA (PRESENCE) IN BLOOD BY LIGHT MICROSCOPY Slight Abnormal (none) [facility] Comment on above: Performed By: #### L [id number], [id number] ####Dispatcher Service Chief: AMAN SANTOS ([id number])[facility] [place] ([facility])[address] [place] [address] [place] LYMPHOCYTES (10*3/UL) IN BLOOD-CELLAVISION 0.9 10*3/uL Low 1.0-4.3 [facility] Comment on above: Performed By: #### L [id number], [id number] ####Dispatcher Service Chief: AMAN SANTOS ([id number])[facility] [place] ([facility])[address] LYMPHOCYTES TOTAL PER COUNTED LEUKOCYTES BY MANUAL COUNT 9 Normal [facility] Comment on above: Performed By: #### L [id number], [id number] ####Dispatcher Service Chief: AMAN SANTOS ([id number])[facility] [place] ([facility])[address] [place] [address] [place] LYMPHOCYTES/100 LEUKOCYTES IN BLOOD-CELLAVISION 8 % Low 15-45 [facility] Comment on above: Performed By: #### L [id number], [id number] ####Dispatcher Service Chief: AMAN SANTOS ([id number])[facility] [place] ([facility])[address] [place] [address] [place] METAMYELOCYTES TOTAL PER COUNTED LEUKOCYTES BY MANUAL COUNT Normal [facility] Comment on above: Performed By: #### L [id number], [id number] ####Dispatcher Service Chief: AMAN SANTOS ([id number])[facility] [place] ([facility])[address] [place] [address] [place] MONOCYTES (10*3/UL) IN BLOOD-CELLAVISION 2.4 10*3/uL High 0.0-0.9 [facility] Comment on above: Performed By: #### L [id number], [id number] ####Dispatcher Service Chief: AMAN SANTOS ([id number])[facility] [place] ([facility])[address] [place] [address] [place] MONOCYTES TOTAL PER COUNTED LEUKOCYTES BY MANUAL COUNT 24 Normal [facility] Comment on above: Performed By: #### L [id number], [id number] ####Dispatcher Service Chief: AMAN TATECER ([id number])[facility] [place] ([facility])[address] [place] [address] [place] MONOCYTES/100 LEUKOCYTES IN BLOOD-IBETH 21 % High 5-13 [facility] Comment on above: Performed By: #### L [id number], [id number] ####Dispatcher Service Chief: AMAN SANTOS ([id number])[facility] [place] ([facility])[address] [place] [address] [place] MYELOCYTES COUNTED BY MANUAL COUNT Normal [facility] Comment on above: Performed By: #### L [id number], [id number] ####Dispatcher Service Chief: AMAN SANTOS ([id number])[facility] [place] ([facility])[address] [place] [address] [place] NEUTROPHILS TOTAL PER COUNTED LEUKOCYTES BY MANUAL COUNT 84 Normal [facility] Comment on above: Performed By: #### L [id number], [id number] ####Dispatcher Service Chief: AMAN SANTOS ([phone])[facility] [place] ([facility])[address] [place] [address] [place] POIKILOCYTOSIS (PRESENCE) IN BLOOD BY LIGHT MICROSCOPY Slight Abnormal (none) [facility] Comment on above: Performed By: #### L [id number], [id number] ####Dispatcher Service Chief: AMAN SANTOS ([id number])[facility] [place] ([facility])[address] [place] [address] [place] PROMYELOCYTES TOTAL PER COUNTED LEUKOCYTES BY MANUAL COUNT Normal [facility] Comment on above: Performed By: #### L [id number], [id number] ####Dispatcher Service Chief: AMAN SANTOS ([id number])[facility] [place] ([facility])[address] [place] [address] [place] RBC MORPHOLOGY IN BLOOD abnormal Normal [facility] Comment on above: Performed By: #### L [id number], [id number] ####Dispatcher Service Chief: AMAN SANTOS ([id number])[facility] ([facility])[address] [place] [address] [place] SEGMENTED NEUTROPHILS (10*3/UL) IN BLOOD-CELLAVISION 8.1 10*3/uL High 1.8-7.5 [facility] Comment on above: Performed By: #### L [id number], [id number] ####Dispatcher Service Chief: AMAN SANTOS ([id number])[facility] [place] ([facility])[address] [place] [address] [place] SEGMENTED NEUTROPHILS/100 LEUKOCYTES-CE 72 % Normal 38-82 [facility] Comment on above: Performed By: #### L [id number], [id number] ####Dispatcher Service Chief: AMAN SANTOS ([id number])[facility] [place] ([facility])[address] [place] [address] [place] STOMATOCYTES IN BLOOD BY LIGHT MICROSCOPY Moderate Abnormal (none) [facility] Comment on above: Performed By: #### L [id number], [id number] ####Dispatcher Service Chief: AMAN SANTOS ([id number])[facility] [place] ([facility])[address] [place] [address] [place] UNCLASSIFIED CELLS TOTAL PER COUNTED LEUKOCYTES BY MANUAL COUNT Normal [facility] Comment on above: Performed By: #### L [id number], [id number] ####Dispatcher Service Chief: AMAN SANTOS ([id number])[facility] (SB[facility])[address] [place] [address] [place] VARIANT LYMPHOCYTES TOTAL PER COUNTED LEUKOCYTES BY MANUAL COUNT Normal [facility] Comment on above: Performed By: #### L [id number], [id number] ####Dispatcher Service Chief: AMAN SANTOS ([id number])[facility] CENTERBessy MIJARESAmrik ([facility])[address] [place] [address] No Panel Informationon 02-16 Atypical Lymphocytes Manual [facility] Bands Manual [facility] Basophils Manual [facility] Blasts Manual [facility] Eosinophils Manual [facility] Interpretation and review of laboratory results Abnormal [facility] Lymphocytes Manual 9 [facility] Metamyelocytes Manual [facility] Monocytes Manual 24 [facility] Myelocytes Manual [facility] Neutrophils Manual 84 [facility] Promyelocytes Manual [facility] Unclassified Cells, Manual [facility] Progress Noteon 02-17-2024 Progress Note Normal [facility] Progress Note Normal [facility] Progress Note Normal [facility] US Heart TransthoracicOrdere d By: Abbie Powers on 02-17-2024 Ao Root Index 1.36 cm/m2 [facility] Work Phone: Aortic Root 2.8 cm [facility] Work Phone: Aortic Sinus Valsalva 2.8 cm [facility] Work Phone: Aortic Sinus Valsalva Index 1.36 cm/m2 [facility] Work Phone: AR Max Velocity PISA 4.4 m/s [facility] Work Phone: AR PHT 350.2 ms [facility] Work Phone: Ascending Aorta 3.2 cm [facility] Work Phone: Ascending Aorta Index 1.55 cm/m2 [facility] Work Phone: AV Area by Peak Velocity 1.2 cm2 [facility] Work Phone: AV Area by VTI 1.3 cm2 [facility] Work Phone: AV Mean Gradient 8 mmHg [facility] Work Phone: AV Mean Velocity 1.3 m/s [facility] Work Phone: AV Peak Gradient 16 mmHg [facility] Work Phone: AV Peak Velocity 2 m/s [facility] Work Phone: AV Velocity Ratio 0.55 [facility] Work Phone: AV VTI 36.5 cm [facility] Work Phone: [place]/BSA Peak Velocity 0.6 cm2/m2 [facility] Work Phone: [place]/BSA VTI 0.6 cm2/m2 [facility] Work Phone: EF BP 66 % 55 - 100 % [facility] Work Phone: Est. RA Pressure 8 mmHg [facility] [employer] Work Phone: Fractional Shortening 2D 28 % 28 - 44 % [facility] Work Phone: Interpretation and review of laboratory results Abnormal [facility] Phone: IVC Diameter 2.5 cm [employer] Phone: IVSd 1 cm Abnormal 0.6 - 0.9 cm [facility] Work Phone: LA Volume 2C 123 mL Abnormal 22 - 52 mL [employer] Phone: LA Volume 4C 154 mL Abnormal 22 - 52 mL [employer] Phone: LA Volume A/L 155 mL [employer] Phone: LA Volume BP 147 mL Abnormal 22 - 52 mL [employer] Phone: LA Volume Index 2C 60 mL/m2 Abnormal 16 - 34 mL/m2 [facility] Phone: LA Volume Index 4C 75 mL/m2 Abnormal 16 - 34 mL/m2 [facility] Work Phone: LA Volume Index A/L 75 mL/m2 16 - 34 mL/m2 [facility] Phone: LA Volume Index BP 71 ml/m2 Abnormal 16 - 34 ml/m2 [employer] Phone: LV EDV A2C 86 mL [employer] Work Phone: LV EDV A4C 84 mL [facility] Work Phone: LV EDV BP 85 mL 56 - 104 mL [facility] Work Phone: LV EDV Index A2C 42 mL/m2 [facility] Work Phone: LV EDV Index A4C 41 mL/m2 [facility] Work Phone: LV EDV Index BP 41 mL/m2 [facility] Work Phone: LV Ejection Fraction A2C 69 % [facility] Work Phone: LV Ejection Fraction A4C 63 % [facility] Work Phone: LV ESV A2C 27 mL [facility] Work Phone: LV ESV A4C 31 mL [facility] [employer] Work Phone: LV ESV BP 29 mL 19 - 49 mL [facility] Work Phone: LV ESV Index A2C 13 mL/m2 [facility] Work Phone: LV ESV Index A4C 15 mL/m2 [facility] [employer] Work Phone: LV ESV Index BP 14 mL/m2 [facility] Work Phone: LV Mass 2D 148.1 g 67 - 162 g [facility] [employer] Work Phone: LV Mass 2D Index 71.9 g/m2 43 - 95 g/m2 [facility] Work Phone: LV RWT Ratio 0.39 [facility] [employer] Work Phone: LVIDd 4.6 cm 3.9 - 5.3 cm [facility] [employer] Work Phone: LVIDd Index 2.23 cm/m2 [facility] [employer] Work Phone: LVIDs 3.3 cm [facility] [employer] Work Phone: LVIDs Index 1.6 cm/m2 [facility] [employer] Work Phone: LVOT Area 2 cm2 [facility] [employer] Work Phone: LVOT Cardiac Output 4.2 liter/minute [facility] Work Phone: LVOT Diameter 1.6 cm [facility] [employer] Work Phone: LVOT Mean Gradient 3 mmHg [employer] Work Phone: LVOT Peak Gradient 5 mmHg [employer] Work Phone: LVOT Peak Velocity 1.1 m/s [facility] Work Phone: LVOT Stroke Volume Index 21.1 mL/m2 [facility] Work Phone: LVOT SV 43.4 ml [employer] Work Phone: LVOT VTI 21.6 cm [employer] Work Phone: LVOT:AV VTI Index 0.59 [facility] Work Phone: LVPWd 0.9 cm 0.6 - 0.9 cm [facility] Work Phone: MR VTI 156 cm [facility] Work Phone: MV Area by VTI 1.2 cm2 [facility] Work Phone: MV Max Velocity 1.9 m/s [facility] Work Phone: MV Mean Gradient 5 mmHg [employer] Work Phone: MV Mean Velocity 1 m/s [facility] Work Phone: MV Peak Gradient 15 mmHg [facility] Work Phone: MV Regurg Velocity PISA 5.4 m/s [facility] Work Phone: MV VTI 36.8 cm [facility] Work Phone: MV:LVOT VTI Index 1.7 [facility] Work Phone: Pulmonary Artery EDP 7 mmHg [employer] Work Phone: RA Area 4C 108.3 mL [employer] Work Phone: RA Area 4C 103.9 mL [employer] Work Phone: RV Basal Dimension 3.6 cm [employer] Work Phone: RV Longitudinal Dimension 7.6 cm [employer] Work Phone: RV Mid Dimension 2.4 cm [employer] Phone: RVSP 60 mmHg [employer] Phone: TAPSE 1.4 cm Abnormal 1.7 cm [employer] Phone: TR Max Velocity 3.62 m/s [employer] Phone: TR Peak Gradient 53 mmHg [employer] Phone: [facility] Phone: Heart Transthoracicon Left Ventricle: Left ventricle size is normal. Normal wall thickness. Normal left ventricular systolic function. EF by 2D Simpsons Biplane is 66%. Normal wall motion. Right Ventricle: Right ventricle size is normal. Reduced systolic function. Aortic Valve: Moderate (2+) regurgitation. Mitral Valve: Valve structure is normal. MV mean gradient is 5 mmHg. Thickened leaflets. Calcified leaflets. Mild to moderate (1-2+) regurgitation. Mild stenosis noted. MV mean gradient is 5 mmHg. Tricuspid Valve: Moderately severe (3+) regurgitation. Reversed hepatic vein systolic flow. RVSP may be underestimated in the setting of severe TR. RVSP is 60 mmHg. Left Atrium: Left atrium is severely dilated. LA Vol Index A/L is 75 mL/m2. Right Atrium: Right atrium is severely dilated. Pericardium: Small (<1 cm) circumferential pericardial effusion present. Left Ventricle Left ventricle size is normal. Normal wall thickness. Normal left ventricular systolic function. EF by 2D Simpsons Biplane is 66%. Normal wall motion. Indeterminate diastolic function due to arrhythmia. Right Ventricle Right ventricle size is normal. Reduced systolic function. Left Atrium Left atrium is severely dilated. LA Vol Index A/L is 75 mL/m2. Right Atrium Right atrium is severely dilated. IVC/SVC IVC diameter is dilated and decreases greater than 50% during inspiration; therefore the estimated right atrial pressure is intermediate (~8 mmHg). Mitral Valve Valve structure is normal. MV mean gradient is 5 mmHg. Thickened leaflets. Calcified leaflets. Mild to moderate (1-2+) regurgitation. Mild stenosis noted. MV mean gradient is 5 mmHg. Tricuspid Valve Valve structure is normal. Moderately severe (3+) regurgitation. Reversed hepatic vein systolic flow. RVSP may be underestimated in the setting of severe TR. RVSP is 60 mmHg. Aortic Valve Trileaflet. No cusp thickening. No cusp calcification. Moderate (2+) regurgitation. No stenosis. Pulmonic Valve Valve structure is normal. Mild (1+) regurgitation. Ascending Aorta Normal sized sinuses of Valsalva and ascending aorta. Pericardium Small (<1 cm) circumferential pericardial effusion present. Septum No interatrial shunt visualized on color Doppler. Study Details Image quality: fair. Blood pressure: 138/98 mmHg. Technical qualifiers: Technically difficult study due to patient's body habitus and technically difficult study due to patient's heart rhythm. No contrast was given. 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 Normal [facility] [id number] 02-16-2024 [id number] Normal [facility] 36on 02-16-2024 36 Patient was no call no show for new [employer]VE[employer]IG[employer] visit for postmenopausal bleeding. It looks like she was admitted to the hospital. Arrange visit in our office in 4 weeks for [employer]VE[employer] exam/evaluate bleeding. Normal [facility] CBC W Auto Differential pane l (Bld)Ordered By: Nitin Orellana on 02-16-2024 Erythrocyte distribution width (RBC) [Ratio] 16.6 % High 11.5 - 15.0 % [facility] Hematocrit (Bld) [Volume fraction] 35.5 % 35.0 - 47.0 % [facility] Hemoglobin (Bld) [Mass/Vol] 10.5 g/dL Low 11.7 - 16.0 g/dL [facility] MCH (RBC) [Entitic mass] 27.6 pg 26.0 - 34.0 pg [facility] MCHC (RBC) [Mass/Vol] 29.6 % Low 30.5 - 36.0 % [facility] MCV (RBC) [Entitic vol] 93.2 fL 77.0 - 99.0 fL [facility] Platelet mean volume (Bld) [Entitic vol] 12.4 fL 9.0 - 12.7 fL [facility] Platelets (Bld) [#/Vol] 103 10*3/uL Low 140 - 440 10*3/uL [facility] RBC (Bld) [#/Vol] 3.81 10*6/uL 3.80 - 5.2 0 10*6/uL [facility] WBC (Bld) [#/Vol] 16 10*3/uL High 3.6 - 10.7 10*3/uL [facility] CBC WITH AUTO DIFFERENTIALon 02-16-2024 Erythrocyte distribution width (RBC) [Ratio] 16.6 % High 11.5-15.0 [facility] Comment on above: Performed By: #### L [id number], [id number] ####Dispatcher Service Chief: AMAN SANTOS ([id number])[facility] ([facility] [place] [address] Hematocrit (Bld) [Volume fraction] 35.5 % Normal 35.0-47.0 [facility] Comment on above: Performed By: #### L [id number], [id number] ####Dispatcher Service Chief: AMAN SANTOS ([id number])[facility] ([facility])[address] [place] [address] Hemoglobin (Bld) [Mass/Vol] 10.5 g/dL Low 11.7-16.0 [facility] Comment on above: Performed By: #### L [id number], [id number] ####Dispatcher Service Chief: AMAN SANTOS ([id number])[facility] ([facility])[address] [place] [address] MCH (RBC) [Entitic mass] 27.6 pg Normal 26.0-34.0 [facility] Comment on above: Performed By: #### L [id number], [id number] ####Dispatcher Service Chief: AMAN SANTOS ([id number])[facility] ([facility])[address] [place] [address] MCHC 29.6 % Low 30.5-36.0 [facility] Comment on above: Performed By: #### L [id number], [id number] ####Dispatcher Service Chief: AMAN SANTOS ([id number])[facility] [place] ([facility])[address] MCV (RBC) [Entitic vol] 93.2 fL Normal 77.0-99.0 [facility] Comment on above: Performed By: #### L [id number], [id number] ####Dispatcher Service Chief: AMAN SANTOS ([id number])[facility] [place] ([facility])[address] Platelet mean volume (Bld) [Entitic vol] 12.4 fL Normal 9.0-12.7 [facility] Comment on above: Performed By: #### L [id number], [id number] ####Dispatcher Service Chief: AMAN SANTOS ([id number])[facility] [place] ([facility])[address] Platelets (Bld) [#/Vol] 103 10*3/uL Low 140-440 [facility] Comment on above: Performed By: #### L [id number], [id number] ####Dispatcher Service Chief: AMAN SANTOS ([id number])[facility] ([facility])[address] RBC (Bld) [#/Vol] 3.81 10*6/uL Normal 3.80-5.20 [facility] Comment on above: Performed By: #### L [id number], [id number] ####Dispatcher Service Chief: AMAN SANTOS ([id number])[facility] [place] ([facility])[address] WBC (Bld) [#/Vol] 16.0 10*3/uL High 3.6-10.7 [facility] Comment on above: Performed By: #### L [id number], [id number] ####Dispatcher Service Chief: AMAN SANTOS ([id number])[facility] ([facility])[address] COMPREHENSIVE METABOLIC PANE Amaury 02-16-2024 Albumin [Mass/Vol] 3.8 g/dL Normal 3.4-4.8 [facility] Comment on above: Performed By: #### L [id number], [id number] ####Dispatcher Service Chief: AMAN SANTOS ([id number])[facility] (SBHLAB)[address] ALP [Catalytic activity/Vol] 77 U/L Normal 40-150 [facility] Comment on above: Performed By: #### L AB17, [id number] ####Dispatcher Service Chief: AMAN SANTOS ([id number])[facility] ([facility])[address] ALT [Catalytic activity/Vol] 17 U/L Normal <30 [facility] Comment on above: Performed By: #### L AB17, [id number] ####Dispatcher Service Chief: AMAN SANTOS ([id number])[facility] ([facility])[address] Anion gap [Moles/Vol] 12 mmol/L Normal 3-13 [facility] Comment on above: Performed By: #### L AB17, [id number] ####Dispatcher Service Chief: AMAN SANTOS ([id number])[facility] ([facility])[address] AST [Catalytic activity/Vol] 15 U/L Normal <34 [facility] Comment on above: Performed By: #### L AB17, [id number] ####Dispatcher Service Chief: AMAN SANTOS ([id number])[facility] ([facility])[address] Bilirubin [Mass/Vol] 1.6 mg/dL High <1.2 [facility] Comment on above: Performed By: #### L AB17, [id number] ####Dispatcher Service Chief: AMAN SANTOS ([id number])[facility] (SBHL[facility])[address] Calcium [Mass/Vol] 9.1 mg/dL Normal 8.8-10.0 [facility] Comment on above: Performed By: #### L AB17, [id number] ####Dispatcher Service Chief: AMAN SANTOS ([id number])[facility]ENTERBessy MARTINEZYOSELYN (SBHLAB)[address] Chloride [Moles/Vol] 101 mmol/L Normal 98-107 [facility] Comment on above: Performed By: #### L AB17, [id number] ####Dispatcher Service Chief: AMAN SANTOS ([id number])[facility] ([facility])[address] CO2 [Moles/Vol] 31 mmol/L Normal 23-31 [facility] Comment on above: Performed By: #### L AB17, [id number] ####Dispatcher Service Chief: AMAN SANTOS ([id number])[facility]ENTER[facility]ARTINEZYOSELYN (SBHLAB)[address] Creatinine [Mass/Vol] 0.72 mg/dL Normal 0.57-1.11 [facility] Comment on above: Performed By: #### L AB17, [id number] ####Dispatcher Service Chief: AMAN SANTOS ([id number])[facility]ENTER[facility]essy MARTINEZUNION [facility] HOSPITALN (SBHLAB)[address] GLOMERULAR FILTRATION RATE ML/MIN/1.73 SQ M.PREDICTED 89.0 mL/min/1.73m*2 Normal >60.0 [facility] Comment on above: Result Comment: Calc ulation based on the Chronic Kidney Disease Epidemiology Collaboration (CKD-EPI) equation refit without adjustment for race Performed By: #### L AB17, [id number] ####Dispatcher Service Chief: AMAN SANTOS ([id number])[facility]ENTER[facility]essy MARTINEZISAMARN (SBHLAB)[address] [place] [address] [place] Glucose [Mass/Vol] 113 mg/dL Normal 82-115 [facility] Comment on above: Performed By: #### L AB17, [id number] ####Dispatcher Service Chief: AMAN SANTOS ([id number])[facility]ENTER[facility] ([facility])[address] [place] [address] [place] Potassium [Moles/Vol] 2.8 mmol/L Low 3.5-5.1 [facility] Comment on above: Result Comment: [facility] potassium values may be up to 0.5 mmol/L lower than serum values. Performed By: #### L AB17, [id number] ####Dispatcher Service Chief: AMAN SANTOS ([id number])[facility] ([facility])[address] Protein [Mass/Vol] 6.0 g/dL Low 6.4-8.3 [facility] Comment on above: Performed By: #### L AB17, [id number] ####Dispatcher Service Chief: AMAN SANTOS ([id number])[facility] ([facility])[address] Sodium [Moles/Vol] 144 mmol/L Normal 136-145 [facility] Comment on above: Performed By: #### L AB17, [id number] ####Dispatcher Service Chief: AMAN SANTOS ([id number])[facility] ([facility])[address] Urea nitrogen [Mass/Vol] 12 mg/dL Normal 9-23 [facility] Comment on above: Performed By: #### L AB17, [id number] ####Dispatcher Service Chief: AMAN SANTOS ([id number])[facility] (SBHLAB)[address] [place] [address] Comprehensive metabolic 1998 panelon 02-16-2024 Albumin [Mass/Vol] 3.8 g/dL 3.4 - 4.8 g/dL [facility] ALP [Catalytic activity/Vol] 77 U/L 40 - 150 U/L [facility] ALT [Catalytic activity/Vol] 17 U/L NINF - 30 U/L [facility] Anion gap [Moles/Vol] 12 mmol/L 3 - 13 mmol/L [facility] AST [Catalytic activity/Vol] 15 U/L NINF - 34 U/L [facility] Bilirubin [Mass/Vol] 1.6 mg/dL High NINF - 1.2 mg/dL [facility] Calcium [Mass/Vol] 9.1 mg/dL 8.8 - 10. 0 mg/dL [facility] Chloride [Moles/Vol] 101 mmol/L 98 - 10 7 mmol/L [facility] CO2 [Moles/Vol] 31 mmol/L 23 - 31 mmol/L [facility] Creatinine [Mass/Vol] 0.72 mg/dL 0.57 - 1.11 mg/dL [facility] GFR/1.73 sq M.predicted (S/P/Bld) [Vol rate/Area] 89 mL/min - PINF [facility] Comment on above: Calculation based on the Chronic Kidney Disease Epidemiology Collaboration (CKD-EPI) equation refit without adjustment for race Glucose [Mass/Vol] 113 mg/dL 82 - 115 mg/dL [facility] Interpretation and review of laboratory results Abnormal [facility] Potassium [Moles/Vol] 2.8 mmol/L Low 3.5 - 5.1 mmol/L [facility] Comment on above: Plasma potassium imer ues may be up to 0.5 mmol/L lower than serum values. Protein [Mass/Vol] 6 g/dL Low 6.4 - 8.3 g/dL [facility] Sodium [Moles/Vol] 144 mmol/L 136 - 145 mmol/L [facility] Urea nitrogen [Mass/Vol] 12 mg/dL 9 - 23 mg/dL [facility] Consulton 02-16-2024 Consult Normal [facility] Laboratory - Chemistry and C hemistry - challengeon 02-16-2024 Magnesium [Mass/Vol] 1.8 mg/dL 1.6 - 2 .6 mg/dL [facility] Laboratory - Hematology and Cell countson 02-16-2024 Anisocytosis Ql (Bld) Slight Abnormal (none) [facility] Band form neutrophils (Bld) [#/Vol] 0.2 10*3/uL High NINF - 0.0 10*3/uL [facility] Band form neutrophils/100 WBC (Bld) 1 % High NINF - 0 % [facility] Hypochromia Ql (Bld) Moderate Abnormal (none) [facility] Lymphocytes (Bld) [#/Vol] 1.8 10*3/uL 1.0 - 4.3 10*3/uL [facility] Lymphocytes/100 WBC (Bld) 11 % Low 15 - 45 % [facility] Monocytes (Bld) [#/Vol] 3.2 10*3/uL High 0.0 - 0.9 10*3/uL [facility] Monocytes/100 WBC (Bld) 20 % High 5 - 13 % [facility] Neutrophils (Bld) [#/Vol] 11 10*3/uL High 1.8 - 7.5 10*3/uL [facility] Poikilocytosis LM Ql (Bld) Slight Abnormal (none) [facility] RBC morphology finding Nom (Bld) abnormal [facility] Segmented neutrophils/100 WBC (Bld) 68 % 38 - 82 % [facility] Stomatocytes LM Ql (Bld) Moderate Abnormal (none) [facility] MAGNESIUMon 02-16-2024 Magnesium [Mass/Vol] 1.8 mg/dL Normal 1.6-2.6 [facility] Comment on above: Result Comment: LEOBARDO Gill COMMENTS:Higher values can be expected in females during menses. Performed By: #### L AB17, [id number] ####Dispatcher Service Chief: AMAN SANTOS ([id number])[facility] ([facility])[address] [place] [address] MANUAL DIFFERENTIAL (CELLAVI TANYA)on 02-16-2024 ANISOCYTOSIS PRESENCE IN BLOOD BY LIGHT MICROSCOPY Slight Abnormal (none) [facility] Comment on above: Performed By: #### L [id number], [id number] ####Dispatcher Service Chief: AMAN SANTOS ([id number])[facility] ([facility])[address] BAND NEUTROPHILS TOTAL PER COUNTED LEUKOCYTES BY MANUAL COUNT 1 Normal [facility] Comment on above: Performed By: #### L [id number], [id number] ####Dispatcher Service Chief: AMAN SANTOS ([id number])[facility] ([facility] [place] [address] [place] BANDS (10*3/UL) IN BLOOD-CELLAVISION 0.2 10*3/uL High <=0.0 [facility] Comment on above: Performed By: #### L [id number], [id number] ####Dispatcher Service Chief: AMAN SANTOS ([id number])[facility] [place] (SBHL[facility])[address] [place] [address] [place] BASOPHILS TOTAL PER COUNTED LEUKOCYTES BY MANUAL COUNT [facility] Comment on above: Performed By: #### L [id number], [id number] ####Dispatcher Service Chief: AMAN HEARDOMID ([id number])[facility] [place] (SBHL[facility])[address] BLASTS TOTAL PER COUNTED LEUKOCYTES BY MANUAL COUNT [facility] Comment on above: Performed By: #### L [id number], [id number] ####Dispatcher Service Chief: AMAN MEDINAMONSEOMID ([id number])[facility] [place] ([facility])[address] EOSINOPHILS TOTAL PER COUNTED LEUKOCYTES BY MANUAL COUNT [facility] Comment on above: Performed By: #### L [id number], [id number] ####Dispatcher Service Chief: AMAN HEARDOMID ([id number])[facility] [place] ([facility])[address] HYPOCHROMIA (PRESENCE) IN BLOOD BY LIGHT MICROSCOPY Moderate Abnormal (none) [facility] Comment on above: Performed By: #### L [id number], [id number] ####Dispatcher Service Chief: AMAN SANTOS ([id number])[facility] [place] ([facility])[address] LYMPHOCYTES (10*3/UL) IN BLOOD-CELLAVISION 1.8 10*3/uL Normal 1.0-4.3 [facility] Comment on above: Performed By: #### L [id number], [id number] ####Dispatcher Service Chief: AMAN SANTOS ([id number])[facility] [place] ([facility])[address] [place] [address] [place] LYMPHOCYTES TOTAL PER COUNTED LEUKOCYTES BY MANUAL COUNT [address] [place] [address] Comment on above: Performed By: #### L [id number], [id number] ####Dispatcher Service Chief: AMAN SANTOS ([id number])[facility] [place] (SBHL[facility])[address] [place] [address] [place] LYMPHOCYTES/100 LEUKOCYTES IN BLOOD-CELLAVISION 11 % Low 15-45 [facility] Comment on above: Performed By: #### L [id number], [id number] ####Dispatcher Service Chief: AMAN SANTOS ([id number])[facility] [place] (SB[facility])[address] [place] [address] [place] METAMYELOCYTES TOTAL PER COUNTED LEUKOCYTES BY MANUAL COUNT Normal [facility] Comment on above: Performed By: #### L [id number], [id number] ####Dispatcher Service Chief: AMAN SANTOS ([id number])[facility] [place] ([facility])[address] [place] [address] [place] MONOCYTES (10*3/UL) IN BLOOD-CELLAVISION 3.2 10*3/uL High 0.0-0.9 [facility] Comment on above: Performed By: #### L [id number], [id number] ####Dispatcher Service Chief: AMAN SANTOS ([id number])[facility] [place] ([facility])[address] [place] [address] [place] MONOCYTES TOTAL PER COUNTED LEUKOCYTES BY MANUAL COUNT [address] [facility] Comment on above: Performed By: #### L [id number], [id number] ####Dispatcher Service Chief: AMAN SANTOS ([id number])[facility] [place] ([facility])[address] [place] [address] [place] MONOCYTES/100 LEUKOCYTES IN BLOOD-IBETH 20 % High 5-13 [facility] Comment on above: Performed By: #### L [id number], [id number] ####Dispatcher Service Chief: AMAN TATECER ([id number])[facility] [place] ([facility])[address] [place] [address] [place] MYELOCYTES COUNTED BY MANUAL COUNT [facility] Comment on above: Performed By: #### L [id number], [id number] ####Dispatcher Service Chief: AMAN SANTOS ([id number])[facility] [place] (SB[facility])[address] [place] [address] [place] NEUTROPHILS BAND FORM/100 LEUKOCYTES IN BLOOD-CELLAVISI 1 % High <=0 [facility] Comment on above: Performed By: #### L [id number], [id number] ####Dispatcher Service Chief: AMAN SANTOS ([id number])[facility] [place] ([facility])[address] NEUTROPHILS TOTAL PER COUNTED LEUKOCYTES BY MANUAL COUNT 71 Normal [facility] Comment on above: Performed By: #### L [id number], [id number] ####Dispatcher Service Chief: AMAN SANTOS ([id number])[facility] [place] ([facility])[address] POIKILOCYTOSIS (PRESENCE) IN BLOOD BY LIGHT MICROSCOPY Slight Abnormal (none) [facility] Comment on above: Performed By: #### L [id number], [id number] ####Dispatcher Service Chief: AMAN SANTOS ([id number])[facility] [place] ([facility])[address] PROMYELOCYTES TOTAL PER COUNTED LEUKOCYTES BY MANUAL COUNT Normal [facility] Comment on above: Performed By: #### L [id number], [id number] ####Dispatcher Service Chief: AMAN SANTOS ([id number])[facility] [place] ([facility])[address] RBC MORPHOLOGY IN BLOOD abnormal Normal [facility] Comment on above: Performed By: #### L [id number], [id number] ####Dispatcher Service Chief: AMAN SANTOS ([id number])[facility] [place] (SBHLAB)[address] [place] [address] [place] SEGMENTED NEUTROPHILS (10*3/UL) IN BLOOD-CELLAVISION 11.0 10*3/uL High 1.8-7.5 [facility] Comment on above: Performed By: #### L [id number], [id number] ####Dispatcher Service Chief: AMAN SANTOS ([phone])[facility] [place] (SB[facility]AB)[address] [place] [address] [place] SEGMENTED NEUTROPHILS/100 LEUKOCYTES-CE 68 % Normal 38-82 [facility] Comment on above: Performed By: #### L [id number], [id number] ####Dispatcher Service Chief: AMAN SANTOS ([id number])[facility] (SBHLAB)[address] STOMATOCYTES IN BLOOD BY LIGHT MICROSCOPY Moderate Abnormal (none) [facility] Comment on above: Performed By: #### L [id number], [id number] ####Dispatcher Service Chief: AMAN SANTOS ([id number])[facility] (SBHLAB)[address] UNCLASSIFIED CELLS TOTAL PER COUNTED LEUKOCYTES BY MANUAL COUNT Normal [facility] Comment on above: Performed By: #### L [id number], [id number] ####Dispatcher Service Chief: AMAN SANTOS ([id number])[facility] (SBHLAB)[address] VARIANT LYMPHOCYTES TOTAL PER COUNTED LEUKOCYTES BY MANUAL COUNT Normal [facility] Comment on above: Performed By: #### L [id number], [id number] ####Dispatcher Service Chief: AMAN SANTOS ([id number])[facility] (SBHLAB)[address] Magnesium [Mass/Vol]on 02-15 Interpretation and review of laboratory results Normal [facility] Higher values can be expected in females during menses. [facility] No Panel Informationon 02-15 Atypical Lymphocytes Manual [facility] Bands Manual 1 [facility] Basophils Manual [facility] Blasts Manual [facility] Eosinophils Manual [facility] Interpretation and review of laboratory results Abnormal [facility] Lymphocytes Manual 11 [facility] Metamyelocytes Manual [facility] Monocytes Manual 21 [facility] Myelocytes Manual [facility] Neutrophils Manual 71 [facility] Promyelocytes Manual [facility] Unclassified Cells, Manual [facility] Nursing Noteon 02-16-2024 Nursing Note Normal [facility] Progress Noteon 02-16-2024 Progress Note Normal [facility] Progress Note Normal [facility] Progress Note Normal [facility] Progress Note Normal [facility] Progress Note Nutrition rescreen complete. Pt assigned a level one for nutrition care. Normal [facility] 30on 02-15-2024 30 Normal [facility] 36on 02-15-2024 36 Patient is currently hospitalized at [facility]. She needs to be scheduled for office cystoscopy in the [place] office in the next 3 to 4 weeks. Please contact the patient to schedule as an outpatient. Normal [facility] 36 Noted. Daughter had stated that she had done this about the pain and they are still waiting to hear back from them. Normal [facility] 36 Normal [facility] BLOOD CULTUREon 02-15-2024 Bacteria identified Cx Nom (Bld) Normal [facility] Comment on above: Performed By: #### L [id number] ####Dispatcher Service Chief: VIVIAN PANTOJA ([id number])[facility] (SACLAB)[address] [place] [address] C-REACTIVE PROTEINon 024 CRP [Mass/Vol] 39.3 mg/L High <5.0 [facility] Comment on above: Performed By: #### L AB17, [id number] ####Dispatcher Service Chief: AMAN SANTOS ([phone])[facility] (SBHLAB)[address] [place] [address] CBC W Auto Differential pane l (Bld)on 02-15-2024 Erythrocyte distribution width (RBC) [Ratio] 16.5 % High 11.5 - 15.0 % [facility] Hematocrit (Bld) [Volume fraction] 36.5 % 35.0 - 47.0 % [facility] Hemoglobin (Bld) [Mass/Vol] 11 g/dL Low 11.7 - 16.0 g/dL [facility] Interpretation and review of laboratory results Abnormal [facility] IPF 13 [facility] MCH (RBC) [Entitic mass] 27.6 pg 26.0 - 34.0 pg [facility] MCHC (RBC) [Mass/Vol] 30.1 % Low 30.5 - 36.0 % [facility] MCV (RBC) [Entitic vol] 91.7 fL 77.0 - 99.0 fL [facility] Platelet mean volume (Bld) [Entitic vol] 12.8 fL High 9.0 - 12.7 fL [facility] Platelets (Bld) [#/Vol] 101 10*3/uL Low 140 - 440 10*3/uL [facility] RBC (Bld) [#/Vol] 3.98 10*6/uL 3.80 - 5.2 0 10*6/uL [facility] WBC (Bld) [#/Vol] 19.4 10*3/uL High 3.6 - 10.7 10*3/uL [facility] CBC W Auto Differential pane l (Bld)Ordered By: Ya Raya on 02-15-2024 Erythrocyte distribution width (RBC) [Ratio] 16.7 % High 11.5 - 15.0 % [facility] Hematocrit (Bld) [Volume fraction] 40.4 % 35.0 - 47.0 % [facility] Hemoglobin (Bld) [Mass/Vol] 12.2 g/dL 11.7 - 16.0 g/dL [facility] Interpretation and review of laboratory results Abnormal [facility] MCH (RBC) [Entitic mass] 27.7 pg 26.0 - 34.0 pg [facility] MCHC (RBC) [Mass/Vol] 30.2 % Low 30.5 - 36.0 % [facility] MCV (RBC) [Entitic vol] 91.8 fL 77.0 - 99.0 fL [facility] Platelet mean volume (Bld) [Entitic vol] 12.8 fL High 9.0 - 12.7 fL [facility] Platelets (Bld) [#/Vol] 110 10*3/uL Low 140 - 440 10*3/uL [facility] RBC (Bld) [#/Vol] 4.4 10*6/uL 3.80 - 5.2 0 10*6/uL [facility] WBC (Bld) [#/Vol] 21.3 10*3/uL High 3.6 - 10.7 10*3/uL [facility] CBC WITH AUTO DIFFERENTIALon 02-15-2024 Erythrocyte distribution width (RBC) [Ratio] 16.5 % High 11.5-15.0 [facility] Comment on above: Performed By: #### L [id number], [id number] ####Dispatcher Service Chief: AMANAGA SANTOS ([id number])[facility] (SBHLAB)[address] Hematocrit (Bld) [Volume fraction] 36.5 % Normal 35.0-47.0 [facility] Comment on above: Performed By: #### L [id number], [id number] ####Dispatcher Service Chief: AMANAGA SANTOS ([id number])[facility]ENTERBessy M[facility] (SBHLAB)[address] Hemoglobin (Bld) [Mass/Vol] 11.0 g/dL Low 11.7-16.0 [facility] Comment on above: Performed By: #### L [id number], [id number] ####Dispatcher Service Chief: AMANAGA SANTOS ([id number])[facility]ENTER[facility]ess[facility] [place] (SBHLAB)[address] IPF 13 Normal [facility] Comment on above: Performed By: #### L [id number], [id number] ####Dispatcher Service Chief: AMANAGA SANTOS ([phone])[facility]ENTER[facility] MIJARES (SBHLAB)[address] MCH (RBC) [Entitic mass] 27.6 pg Normal 26.0-34.0 [facility] Comment on above: Performed By: #### L [id number], [id number] ####Dispatcher Service Chief: AMAN MEDINAANGELA ([id number])[facility]ENTERBessy [facility] (SBHLAB)[address] MCHC 30.1 % Low 30.5-36.0 [facility] Comment on above: Performed By: #### L [id number], [id number] ####Dispatcher Service Chief: AMAN TOM ([id number])[facility]ENTERBessy [facility] (SBHLAB)[address] MCV (RBC) [Entitic vol] 91.7 fL Normal 77.0-99.0 [facility] Comment on above: Performed By: #### L [id number], [id number] ####Dispatcher Service Chief: AMAN SANTOS ([id number])[facility]JA [place] (SBHLAB)[address] Platelet mean volume (Bld) [Entitic vol] 12.8 fL High 9.0-12.7 [facility] Comment on above: Performed By: #### L [id number], [id number] ####Dispatcher Service Chief: AMAN SANTOS ([id number])[facility] [place] (SBHLAB)[address] Platelets (Bld) [#/Vol] 101 10*3/uL Low 140-440 [facility] Comment on above: Performed By: #### L [id number], [id number] ####Dispatcher Service Chief: AMAN SANTOS ([id number])[facility] [place] (SBHLAB)[address] RBC (Bld) [#/Vol] 3.98 10*6/uL Normal 3.80-5.20 [facility] Comment on above: Performed By: #### L [id number], [id number] ####Dispatcher Service Chief: AMAN SANTOS ([id number])[facility] [place] (SBHLAB)[address] WBC (Bld) [#/Vol] 19.4 10*3/uL High 3.6-10.7 [facility] Comment on above: Performed By: #### L [id number], [id number] ####Dispatcher Service Chief: AMAN SANTOS ([id number])[facility] [place] (SBHLAB)[address] Erythrocyte distribution width (RBC) [Ratio] 16.7 % High 11.5-15.0 [facility] Comment on above: Performed By: #### L [id number], [id number] ####Dispatcher Service Chief: AMAN SANTOS ([id number])[facility] [place] (SBHLAB)[address] Hematocrit (Bld) [Volume fraction] 40.4 % Normal 35.0-47.0 [facility] Comment on above: Performed By: #### L [id number], [id number] ####Dispatcher Service Chief: AMAN SANTOS ([id number])[facility]ENTERBessy MARTINEZYOSELYN (SBHLAB)[address] Hemoglobin (Bld) [Mass/Vol] 12.2 g/dL Normal 11.7-16.0 [facility] Comment on above: Performed By: #### L [id number], [id number] ####Dispatcher Service Chief: AMAN SANTOS ([id number])[facility] (SBAB)[address] MCH (RBC) [Entitic mass] 27.7 pg Normal 26.0-34.0 [facility] Comment on above: Performed By: #### L [id number], [id number] ####Dispatcher Service Chief: AMAN SANTOS ([id number])[facility] (SBHLAB)[address] MCHC 30.2 % Low 30.5-36.0 [facility] Comment on above: Performed By: #### L [id number], [id number] ####Dispatcher Service Chief: AMAN SANTOS ([id number])[facility] (SBAB)[address] [place] [address] MCV (RBC) [Entitic vol] 91.8 fL Normal 77.0-99.0 [facility] Comment on above: Performed By: #### L [id number], [id number] ####Dispatcher Service Chief: AMAN SANTOS ([id number])[facility] (SBAB)[address] Platelet mean volume (Bld) [Entitic vol] 12.8 fL High 9.0-12.7 [facility] Comment on above: Performed By: #### L [id number], [id number] ####Dispatcher Service Chief: AMAN SANTOS ([id number])[facility] [place] (SBHLAB)[address] Platelets (Bld) [#/Vol] 110 10*3/uL Low 140-440 [facility] Comment on above: Performed By: #### L [id number], [id number] ####Dispatcher Service Chief: AMAN SANTOS ([id number])[facility] [place] (SB[facility]AB)[address] RBC (Bld) [#/Vol] 4.40 10*6/uL Normal 3.80-5.20 [facility] Comment on above: Performed By: #### L [id number], [id number] ####Dispatcher Service Chief: AMAN SANTOS ([id number])[facility] (SBHLAB)[address] WBC (Bld) [#/Vol] 21.3 10*3/uL High 3.6-10.7 [facility] Comment on above: Performed By: #### L [id number], [id number] ####Dispatcher Service Chief: AMAN SANTOS ([id number])[facility] [place] (SBHLAB)[address] COMPLETE URINALYSISon 2023 BACTERIA (#/HPF) IN URINE Few Abnormal Negative [facility] Comment on above: Performed By: #### L [id number] ####Dispatcher Service Chief: AMAN SANTOS ([id number])[facility] [place] (SBHLAB)[address] BILIRUBIN, TOTAL PRESENCE IN URINE Negative Normal Negative [facility] Comment on above: Performed By: #### L [id number] ####Dispatcher Service Chief: AMAN SANTOS ([id number])[facility] [place] (SB[facility]AB)[address] Clarity (U) Turbid Abnormal Clear [facility] Comment on above: Performed By: #### L [id number] ####Dispatcher Service Chief: AMAN SANTOS ([id number])[facility] (SBHLAB)[address] Color (U) Yellow Normal Lt. Yellow [facility] Comment on above: Performed By: #### L [id number] ####Dispatcher Service Chief: AMANAGA SANTOS ([id number])[facility] (SBHLAB)[address] GLUCOSE (MG/DL) IN URINE Normal Normal Normal (<70) [facility] Comment on above: Performed By: #### L [id number] ####Dispatcher Service Chief: AMAN TOM ([id number])[facility] ([facility] HEMOGLOBIN PRESENCE IN URINE 0.1 mg/dL Abnormal Negative [facility] Comment on above: Performed By: #### L [id number] ####Dispatcher Service Chief: AMAN TOM ([id number])[facility] ([facility])[address] HYALINE CASTS (#/LPF) IN URINE SEDIMENT BY MICROSCOPY 0-2 Abnormal Negative [facility] Comment on above: Performed By: #### L [id number] ####Dispatcher Service Chief: AMAN TOM ([id number])[facility] ([facility] Ketones Ql (U) Negative Normal Negative [facility] Comment on above: Performed By: #### L [id number] ####Dispatcher Service Chief: AMAN MEDINAANGELA ([id number])[facility] ([facility] LEUKOCYTE ESTERASE PRESENCE IN URINE BY TEST STRIP Negative Normal Negative [facility] Comment on above: Performed By: #### L [id number] ####Dispatcher Service Chief: AMAN HEARDOMID ([id number])[facility] (HLAB)[address] [place] [address] [place] MUCUS (#/LPF) IN URINE SEDIMENT Few Normal Negative [facility] Comment on above: Performed By: #### L [id number] ####Dispatcher Service Chief: AMAN SANTOS ([id number])[facility] (SBHLAB)[address] NITRITE PRESENCE IN URINE Negative Normal Negative [facility] Comment on above: Performed By: #### L [id number] ####Dispatcher Service Chief: AMAN SANTOS ([id number])[facility] (SBHLAB)[address] pH (U) 5.5 [pH] Normal 5.0-8.0 [facility] Comment on above: Performed By: #### L [id number] ####Dispatcher Service Chief: AMAN SANTOS ([id number])[facility] [place] (SBHLAB)[address] [place] [address] Protein (U) [Mass/Vol] 100 mg/dL Abnormal Negative [facility] Comment on above: Performed By: #### L [id number] ####Dispatcher Service Chief: AMAN SANTOS ([id number])[facility] [place] (SBHLAB)[address] [place] [address] [place] RBC (#/HPF) IN URINE SEDIMENT 6-10 Abnormal 0-2 [facility] Comment on above: Performed By: #### L [id number] ####Dispatcher Service Chief: AMAN SANTOS ([id number])[facility] (SBHLAB)[address] [place] [address] Specific gravity (U) [Rel density] 1.019 Normal 1.005-1.030 [facility] Comment on above: Performed By: #### L [id number] ####Dispatcher Service Chief: AMAN SANTOS ([id number])[facility] (SBHLAB)[address] [place] [address] [place] SQUAMOUS EPITHELIAL CELLS (#/HPF) IN URINE SEDIMENT 11-25 Abnormal 3-5 [facility] Comment on above: Performed By: #### L [id number] ####Dispatcher Service Chief: AMAN SANTOS ([id number])[facility] (SBHLAB)[address] UROBILINOGEN (MG/DL) IN URINE 3 mg/dL Abnormal Normal (0-1) [facility] Comment on above: Performed By: #### L [id number] ####Dispatcher Service Chief: AMAN SANTOS ([id number])[facility] [place] (SBHLAB)[address] WBC (LEUKOCYTE) (#/HPF) IN URINE SEDIMENT 3-5 Normal 0-5 [facility] Comment on above: Performed By: #### L [id number] ####Dispatcher Service Chief: AMAN SANTOS ([id number])[facility] [place] (SBHLAB)[address] COMPREHENSIVE METABOLIC PANE Amaury 02-15-2024 Albumin [Mass/Vol] 3.9 g/dL Normal 3.4-4.8 [facility] Comment on above: Performed By: #### L AB17, [id number] ####Dispatcher Service Chief: AMAN SANTOS ([id number])[facility] [place] (SB[facility]AB)[address] ALP [Catalytic activity/Vol] 84 U/L Normal 40-150 [facility] Comment on above: Performed By: #### L AB17, [id number] ####Dispatcher Service Chief: AMAN SANTOS ([id number])[facility] [place] (SB[facility]AB)[address] ALT [Catalytic activity/Vol] 19 U/L Normal <30 [facility] Comment on above: Performed By: #### L AB17, [id number] ####Dispatcher Service Chief: AMAN SANTOS ([id number])[facility] [place] (SBHLAB)[address] Anion gap [Moles/Vol] 8 mmol/L Normal 3-13 [facility] Comment on above: Performed By: #### L AB17, [id number] ####Dispatcher Service Chief: AMAN SANTOS ([id number])[facility] [place] (SBHLAB)[address] AST [Catalytic activity/Vol] 16 U/L Normal <34 [facility] Comment on above: Performed By: #### L AB17, [id number] ####Dispatcher Service Chief: AMAN SANTOS ([id number])[facility] [place] (SBHLAB)[address] Bilirubin [Mass/Vol] 1.6 mg/dL High <1.2 [facility] Comment on above: Performed By: #### L AB17, [id number] ####Dispatcher Service Chief: AMAN SANTOS ([id number])[facility] [place] (SB[facility]AB)[address] Calcium [Mass/Vol] 9.0 mg/dL Normal 8.8-10.0 [facility] Comment on above: Performed By: #### L AB17, [id number] ####Dispatcher Service Chief: AMAN SANTOS ([id number])[facility] [place] (SB[facility]AB)[address] Chloride [Moles/Vol] 102 mmol/L Normal 98-107 [facility] Comment on above: Performed By: #### L AB17, [id number] ####Dispatcher Service Chief: AMAN SANTOS ([id number])[facility] [place] (SB[facility]AB)[address] CO2 [Moles/Vol] 33 mmol/L High 23-31 [facility] Comment on above: Performed By: #### L AB17, [id number] ####Dispatcher Service Chief: AMAN SANTOS ([id number])[facility] [place] (SBHLAB)[address] Creatinine [Mass/Vol] 0.56 mg/dL Low 0.57-1.11 [facility] Comment on above: Performed By: #### L AB17, [id number] ####Dispatcher Service Chief: AMAN SANTOS ([id number])[facility] [place] (SBHLAB)[address] GLOMERULAR FILTRATION RATE ML/MIN/1.73 SQ M.PREDICTED >90.0 Normal >60.0 [facility] Comment on above: Result Comment: Calc ulation based on the Chronic Kidney Disease Epidemiology Collaboration (CKD-EPI) equation refit without adjustment for race Performed By: #### L AB17, [id number] ####Dispatcher Service Chief: AMAN SANTOS ([id number])[facility] [place] (SB[facility]AB)[address] Glucose [Mass/Vol] 130 mg/dL High 82-115 [facility] Comment on above: Performed By: #### L AB17, [id number] ####Dispatcher Service Chief: AMAN SANTOS ([id number])[facility] [place] (SB[facility]AB)[address] Potassium [Moles/Vol] 2.9 mmol/L Low 3.5-5.1 [facility] Comment on above: Performed By: #### L AB17, [id number] ####Dispatcher Service Chief: AMAN SANTOS ([id number])[facility] [place] (SBHLAB)[address] [place] [address] [place] Protein [Mass/Vol] 6.3 g/dL Low 6.4-8.3 [facility] Comment on above: Performed By: #### L AB17, [id number] ####Dispatcher Service Chief: AMAN SANTOS ([id number])[facility] [place] (SBHLAB)[address] [place] [address] [place] Sodium [Moles/Vol] 143 mmol/L Normal 136-145 [facility] Comment on above: Performed By: #### L AB17, [id number] ####Dispatcher Service Chief: AMAN SANTOS ([id number])[facility] [place] (SBHLAB)[address] [place] [address] [place] Urea nitrogen [Mass/Vol] 14 mg/dL Normal 9-23 [facility] Comment on above: Performed By: #### L AB17, [id number] ####Dispatcher Service Chief: AMAN SANTOS ([id number])[facility] [place] (SB[facility]AB)[address] Albumin [Mass/Vol] 4.4 g/dL Normal 3.5-5.0 [facility] Comment on above: Performed By: #### L AB17 ####Dispatcher Service Chief: AMAN SANTOS ([id number])[facility] [place] (SB[facility]AB)[address] ALP [Catalytic activity/Vol] 94 U/L Normal 38-126 [facility] Comment on above: Performed By: #### L AB17 ####Dispatcher Service Chief: AMAN SANTOS ([id number])[facility] [place] (SB[facility]AB)[address] ALT [Catalytic activity/Vol] 20 U/L Normal 0-34 [facility] Comment on above: Performed By: #### L AB17 ####Dispatcher Service Chief: AMAN SANTOS ([id number])[facility] (SBHLAB)[address] Anion gap [Moles/Vol] 7 mmol/L Normal 3-13 [facility] Comment on above: Performed By: #### L AB17 ####Dispatcher Service Chief: AMAN SANTOS ([id number])[facility] (SB[facility])[address] AST [Catalytic activity/Vol] 18 U/L Normal 15-46 [facility] Comment on above: Performed By: #### L AB17 ####Dispatcher Service Chief: AMAN SANTOS ([id number])[facility] [place] (SBHLAB)[address] Bilirubin [Mass/Vol] 1.8 mg/dL High 0.2-1.3 [facility] Comment on above: Performed By: #### L AB17 ####Dispatcher Service Chief: AMAN SANTOS ([id number])[facility] (SBHLAB)[address] Calcium [Mass/Vol] 9.1 mg/dL Normal 8.4-10.4 [facility] Comment on above: Performed By: #### L AB17 ####Dispatcher Service Chief: AMAN SANTOS ([id number])[facility] CENTERBessy MIJARESN (SBHLAB)[address] Chloride [Moles/Vol] 100 mmol/L Normal 98-107 [facility] Comment on above: Performed By: #### L AB17 ####Dispatcher Service Chief: AMAN SANTOS ([id number])[facility] CENTERBessy [facility] (SBHLAB)[address] CO2 [Moles/Vol] 36 mmol/L High 22-30 [facility] Comment on above: Performed By: #### L AB17 ####Dispatcher Service Chief: AMAN SANTOS ([id number])[facility]ENTERBess[facility] [place] (SBHLAB)[address] Creatinine [Mass/Vol] 0.69 mg/dL Normal 0.52-1.04 [facility] Comment on above: Performed By: #### L AB17 ####Dispatcher Service Chief: AMAN SANTOS ([id number])[facility]ENTERBess[facility] [place] (HLAB)[address] GLOMERULAR FILTRATION RATE ML/MIN/1.73 SQ M.PREDICTED >90.0 Normal >60.0 [facility] Comment on above: Result Comment: Calc ulation based on the Chronic Kidney Disease Epidemiology Collaboration (CKD-EPI) equation refit without adjustment for race Performed By: #### L AB17 ####Dispatcher Service Chief: AMAN SANTOS ([id number])[facility]ENTERBessy MARTINEZUNION COUNTY [facility]OSPITALN (SBHLAB)[address] [place] [address] [place] Glucose [Mass/Vol] 108 mg/dL High 70-100 [facility] Comment on above: Performed By: #### L AB17 ####Dispatcher Service Chief: AMAN SANTOS ([id number])[facility]ENTERBessy MARTINEZUN[facility] COUNTY [facility]OS[facility]ITALN (SBHLAB)[address] Potassium [Moles/Vol] 3.1 mmol/L Low 3.5-5.1 [facility] Comment on above: Performed By: #### L AB17 ####Dispatcher Service Chief: AMAN TOM ([id number])[facility]ENTERB[facility] [place] (SBHLAB)[address] Protein [Mass/Vol] 7.1 g/dL Normal 6.3-8.2 [facility] Comment on above: Performed By: #### L AB17 ####Dispatcher Service Chief: AMAN TOM ([id number])[facility] (SBHLAB)[address] [address] Sodium [Moles/Vol] 143 mmol/L Normal 135-145 [facility] Comment on above: Performed By: #### L [id number] ####Dispatcher Service Chief: AMAN MEDINAANGELA ([phone])[facility]ENTER[facility] [place] ([facility])[address] Urea nitrogen [Mass/Vol] 17 mg/dL Normal 7-17 [facility] Comment on above: Performed By: #### L [id number] ####Dispatcher Service Chief: AMAN TOM ([id number])[facility] (SBHLAB)[address] CRP [Mass/Vol]Ordered By: St sukhi Alvarez on 02-15-2024 Interpretation and review of laboratory results Abnormal [facility] CT LUMBAR SPINE WO IV CONTRA STon 02-15-2024 CT LUMBAR SPINE WO IV CONTRAST Normal [facility] CT Lumbar spine WO contrasto n 02-15-2024 Acute T12 compressio n fracture with moderate height loss and acute L3 compression fracture with mild height loss. No significant retropulsion. Old L2 compression fracture with moderate height loss. The clinical history of suspected infection is noted. Please note that CT has low sensitivity and specificity for infection. If this is the clinical concern, MRI of the lumbar spine would be recommended, ideally with intravenous contrast media. Report Dictated on Electronically Signed By: Azucena Yanez MD Electronically Signed Date/Time: 02/15/2024 1:29 PM [facility] Patient Name: ALTA MOYA : 1950 Exam Date/Time: 02/14/2024 13:25 Procedure: CT LUMBAR SPINE WO IV CONTRAST Ordering Provider: LAST JAMES Reason For Exam: Low back pain, infection suspected, no prior imaging CLINICAL HISTORY: Low back pain, infection suspected, no prior imaging COMPARISON: CT of the abdomen and pelvis dated 02/11/24 Radiographs of the lumbar spine dated 02/04/24 TECHNIQUE: Unenhanced CT of the lumbar spine. All CT scans at this facility employ automatic and/or manual dose reduction techniques to keep radiation dose as low as reasonably achievable. FINDINGS: The patient has transitional anatomy. For the purposes of this report, L5-S1 is defined as the most caudal complete disc space, as centered on axial series 2 image 239. With this numbering, T12 has rudimentary ribs and L5 is partially sacralized. Lumbar spine alignment is anatomic. An acute T12 compression fracture results in approximately 40% height loss and 1 mm retropulsion. An old L2 compression fracture results in approximately 50% height loss and no retropulsion. An acute L3 compression fracture results in approximately 20% height loss and no retropulsion. Mild deformity of the L4 superior endplate may be developmental or the result of prior trauma. Multilevel endplate degenerative changes and facet arthrosis are relatively mild for age. No significant osseous narrowing of the spinal canal is demonstrated. Spinal stenosis is more accurately evaluated by MRI. Mild prevertebral edema is at L3. Pleural effusions are trace. A persistent pericardial effusion is partially imaged. [facility] [facility] Azucena Yanez MD - 02/15/2024 Patient Name: ALTA BAKER : 1950 Exam Date/Time: 02/14/2024 13:25 Procedure: CT LUMBAR SPINE WO IV CONTRAST Ordering Provider: LAST JAMES Reason For Exam: Low back pain, infection suspected, no prior imaging CLINICAL HISTORY: Low back pain, infection suspected, no prior imaging COMPARISON: CT of the abdomen and pelvis dated 02/11/24 Radiographs of the lumbar spine dated 02/04/24 TECHNIQUE: Unenhanced CT of the lumbar spine. All CT scans at this facility employ automatic and/or manual dose reduction techniques to keep radiation dose as low as reasonably achievable. FINDINGS: The patient has transitional anatomy. For the purposes of this report, L5-S1 is defined as the most caudal complete disc space, as centered on axial series 2 image 239. With this numbering, T12 has rudimentary ribs and L5 is partially sacralized. Lumbar spine alignment is anatomic. An acute T12 compression fracture results in approximately 40% height loss and 1 mm retropulsion. An old L2 compression fracture results in approximately 50% height loss and no retropulsion. An acute L3 compression fracture results in approximately 20% height loss and no retropulsion. Mild deformity of the L4 superior endplate may be developmental or the result of prior trauma. Multilevel endplate degenerative changes and facet arthrosis are relatively mild for age. No significant osseous narrowing of the spinal canal is demonstrated. Spinal stenosis is more accurately evaluated by MRI. Mild prevertebral edema is at L3. Pleural effusions are trace. A persistent pericardial effusion is partially imaged. IMPRESSION: Acute T12 compression fracture with moderate height loss and acute L3 compression fracture with mild height loss. No significant retropulsion. Old L2 compression fracture with moderate height loss. The clinical history of suspected infection is noted. Please note that CT has low sensitivity and specificity for infection. If this is the clinical concern, MRI of the lumbar spine would be recommended, ideally with intravenous contrast media. Report Dictated on Electronically Signed By: Azucena Yanez MD Electronically Signed Date/Time: 02/15/2024 1:29 PM EST [facility] CT Lumbar spine WO contrastO rdered By: Azucena Yanez on 02-15-2024 [employer] Work Phone: Comprehensive metabolic 1998 panelon 02-15-2024 Albumin [Mass/Vol] 3.9 g/dL 3.4 - 4.8 g/dL [employer] ALP [Catalytic activity/Vol] 84 U/L 40 - 150 U/L [facility] ALT [Catalytic activity/Vol] 19 U/L NINF - 30 U/L [facility] Anion gap [Moles/Vol] 8 mmol/L 3 - 13 mmol/L [facility] AST [Catalytic activity/Vol] 16 U/L NINF - 34 U/L [facility] Bilirubin [Mass/Vol] 1.6 mg/dL High NINF - 1.2 mg/dL [facility] Calcium [Mass/Vol] 9 mg/dL 8.8 - 10. 0 mg/dL [facility] Chloride [Moles/Vol] 102 mmol/L 98 - 10 7 mmol/L [facility] CO2 [Moles/Vol] 33 mmol/L High 23 - 31 mmol/L [facility] Creatinine [Mass/Vol] 0.56 mg/dL Low 0.57 - 1.11 mg/dL [facility] GFR/1.73 sq M.predicted (S/P/Bld) [Vol rate/Area] - PINF [facility] Comment on above: Calculation based on the Chronic Kidney Disease Epidemiology Collaboration (CKD-EPI) equation refit without adjustment for race Glucose [Mass/Vol] 130 mg/dL High 82 - 115 mg/dL [facility] Interpretation and review of laboratory results Abnormal [facility] Potassium [Moles/Vol] 2.9 mmol/L Low 3.5 - 5.1 mmol/L [facility] Protein [Mass/Vol] 6.3 g/dL Low 6.4 - 8.3 g/dL [facility] Sodium [Moles/Vol] 143 mmol/L 136 - 145 mmol/L [facility] Urea nitrogen [Mass/Vol] 14 mg/dL 9 - 23 mg/dL [facility] Albumin [Mass/Vol] 4.4 g/dL 3.5 - 5.0 g/dL [facility] ALP [Catalytic activity/Vol] 94 U/L 38 - 126 U/L [facility] ALT [Catalytic activity/Vol] 20 U/L 0 - 34 U/L [facility] Anion gap [Moles/Vol] 7 mmol/L 3 - 13 mmol/L [facility] AST [Catalytic activity/Vol] 18 U/L 15 - 46 U/L [facility] Bilirubin [Mass/Vol] 1.8 mg/dL High 0.2 - 1 .3 mg/dL [facility] Calcium [Mass/Vol] 9.1 mg/dL 8.4 - 10. 4 mg/dL [facility] Chloride [Moles/Vol] 100 mmol/L 98 - 10 7 mmol/L [facility] CO2 [Moles/Vol] 36 mmol/L High 22 - 30 mmol/L [facility] Creatinine [Mass/Vol] 0.69 mg/dL 0.52 - 1.04 mg/dL [facility] GFR/1.73 sq M.predicted (S/P/Bld) [Vol rate/Area] - PINF [facility] Comment on above: Calculation based on the Chronic Kidney Disease Epidemiology Collaboration (CKD-EPI) equation refit without adjustment for race Glucose [Mass/Vol] 108 mg/dL High 70 - 100 mg/dL [facility] Interpretation and review of laboratory results Abnormal [facility] Potassium [Moles/Vol] 3.1 mmol/L Low 3.5 - 5.1 mmol/L [facility] Protein [Mass/Vol] 7.1 g/dL 6.3 - 8.2 g/dL [facility] Sodium [Moles/Vol] 143 mmol/L 135 - 145 mmol/L [facility] Urea nitrogen [Mass/Vol] 17 mg/dL 7 - 17 mg/dL [facility] Consulton 02-15-2024 Consult Normal [facility] Consult Vancomycin therapy h as been discontinued by Dr. Gracia on 02-15-24. Thank you for the consult. Pharmacy signing off for vancomycin dosing. Diane Coto, formerly [facility], Date: 02/15/24 Time: 1:50 PM Normal [facility] Consult Normal [facility] ECG 12-LEADon 02-15-2024 ECG 12-LEAD IMPRESSION: SINUS ARRHYTHMIA Probable anterior infarct, age indeterminate Electronically Signed On 02-15-2024 13:42:34 EST by Ovidio Price Normal [facility] ED Nursing Noteon 02-15-2024 ED Nursing Note Attempted PIV x2 unsuccessfully; asked another RN for assistance. Normal [facility] LACTIC ACID WITH REFLEXon Lactate [Moles/Vol] 1.4 mmol/L Normal 0.7-2.0 [facility] Comment on above: Performed By: #### L [id number] ####Dispatcher Service Chief: AMAN SANTOS ([phone])[facility] [place] (SBHLAB)[address] [place] [address] Laboratory - Chemistry and C hemistry - challengeOrdered By: Ino Alvarez on 02-15-2024 CRP [Mass/Vol] 39.3 mg/L High NINF - 5.0 mg/L [facility] Laboratory - Chemistry and C hemistry - challengeon 02-15-2024 Lactate [Moles/Vol] 1.4 mmol/L 0.7 - 2. 0 mmol/L [facility] Laboratory - Hematology and Cell countson 02-15-2024 Anisocytosis Ql (Bld) Slight Abnormal (none) [facility] Band form neutrophils (Bld) [#/Vol] 0.4 10*3/uL High NINF - 0.0 10*3/uL [facility] Band form neutrophils/100 WBC (Bld) 2 % High NINF - 0 % [facility] Dacrocytes LM Ql (Bld) Rare Abnormal (none) [facility] Giant platelets LM Ql (Bld) Rare Abnormal (none) [facility] Hypochromia Ql (Bld) Slight Abnormal (none) [facility] Lymphocytes (Bld) [#/Vol] 1 10*3/uL 1.0 - 4.3 10*3/uL [facility] Lymphocytes/100 WBC (Bld) 5 % Low 15 - 45 % [facility] Monocytes (Bld) [#/Vol] 4.9 10*3/uL High 0.0 - 0.9 10*3/uL [facility] Monocytes/100 WBC (Bld) 25 % High 5 - 13 % [facility] Neutrophils (Bld) [#/Vol] 13.6 10*3/uL High 1.8 - 7.5 10*3/uL [facility] Neutrophils.hypersegme nted LM Ql (Bld) Present Abnormal (none) [facility] Ovalocytes LM Ql (Bld) Slight Abnormal (none) [facility] Poikilocytosis LM Ql (Bld) Slight Abnormal (none) [facility] Polychromasia LM Ql (Bld) Slight Abnormal (none) [facility] RBC morphology finding Nom (Bld) abnormal [facility] Segmented neutrophils/100 WBC (Bld) 68 % 38 - 82 % [facility] Stomatocytes LM Ql (Bld) Moderate Abnormal (none) [facility] Anisocytosis Ql (Bld) Slight Abnormal (none) [facility] Band form neutrophils (Bld) [#/Vol] 0.6 10*3/uL High NINF - 0.0 10*3/uL [facility] Band form neutrophils/100 WBC (Bld) 3 % High NINF - 0 % [facility] Eosinophils (Bld) [#/Vol] 0.2 10*3/uL 0.0 - 0.5 10*3/uL [facility] Eosinophils/100 WBC (Bld) 1 % 0 - 6 % [facility] Lymphocytes (Bld) [#/Vol] 0.9 10*3/uL Low 1.0 - 4.3 10*3/uL [facility] Lymphocytes/100 WBC (Bld) 4 % Low 15 - 45 % [facility] Monocytes (Bld) [#/Vol] 2.3 10*3/uL High 0.0 - 0.9 10*3/uL [facility] Monocytes/100 WBC (Bld) 11 % 5 - 13 % [facility] Neutrophils (Bld) [#/Vol] 17.9 10*3/uL High 1.8 - 7.5 10*3/uL [facility] Poikilocytosis LM Ql (Bld) Slight Abnormal (none) [facility] RBC morphology finding Nom (Bld) abnormal [facility] Segmented neutrophils/100 WBC (Bld) 81 % 38 - 82 % [facility] Stomatocytes LM Ql (Bld) Moderate Abnormal (none) [facility] MANUAL DIFFERENTIAL (CELLAVI TANYA)on 02-15-2024 ANISOCYTOSIS PRESENCE IN BLOOD BY LIGHT MICROSCOPY Slight Abnormal (none) [facility] Comment on above: Performed By: #### L [id number], [id number] ####Dispatcher Service Chief: AMAN SANTOS ([id number])[facility] ([facility] BAND NEUTROPHILS TOTAL PER COUNTED LEUKOCYTES BY MANUAL COUNT 2 Normal [facility] Comment on above: Performed By: #### L [id number], [id number] ####Dispatcher Service Chief: AMAN SANTOS ([id number])[facility] ([facility] BANDS (10*3/UL) IN BLOOD-CELLAVISION 0.4 10*3/uL High <=0.0 [facility] Comment on above: Performed By: #### L [id number], [id number] ####Dispatcher Service Chief: AMAN MEDINAMONSEOMID ([id number])[facility] (SBHLAB)[address] BASOPHILS TOTAL PER COUNTED LEUKOCYTES BY MANUAL COUNT Normal [facility] Comment on above: Performed By: #### L [id number], [id number] ####Dispatcher Service Chief: AMAN MEDINAMONSEOMID ([id number])[facility] ([facility])[address] BLASTS TOTAL PER COUNTED LEUKOCYTES BY MANUAL COUNT Normal [facility] Comment on above: Performed By: #### L [id number], [id number] ####Dispatcher Service Chief: AMAN MEDINAMONSEOMID ([id number])[facility] [place] ([facility])[address] DACROCYTES PRESENCE IN BLOOD BY LIGHT MICROSCOPY Rare Abnormal (none) [facility] Comment on above: Performed By: #### L [id number], [id number] ####Dispatcher Service Chief: AMAN MEDINAANGELA ([id number])[facility] [place] ([facility])[address] EOSINOPHILS TOTAL PER COUNTED LEUKOCYTES BY MANUAL COUNT Normal [facility] Comment on above: Performed By: #### L [id number], [id number] ####Dispatcher Service Chief: AMAN SANTOS ([id number])[facility] [place] ([facility])[address] HYPERSEGMENTED NEUTROPHILS IN BLOOD BY LIGHT MICROSCOPY (PRESENT) Present Abnormal (none) [facility] Comment on above: Performed By: #### L [id number], [id number] ####Dispatcher Service Chief: AMAN TATECER ([id number])[facility] [place] ([facility])[address] HYPOCHROMIA (PRESENCE) IN BLOOD BY LIGHT MICROSCOPY Slight Abnormal (none) [facility] Comment on above: Performed By: #### L [id number], [id number] ####Dispatcher Service Chief: AMAN SANTOS ([phone])[facility] ([facility])[address] [place] [address] [place] LYMPHOCYTES (10*3/UL) IN BLOOD-CELLAVISION 1.0 10*3/uL Normal 1.0-4.3 [facility] Comment on above: Performed By: #### L [id number], [id number] ####Dispatcher Service Chief: AMAN BEBETOCER ([id number])[facility] (SB[facility])[address] [place] [address] [place] LYMPHOCYTES TOTAL PER COUNTED LEUKOCYTES BY MANUAL COUNT 5 Normal [facility] Comment on above: Performed By: #### L [id number], [id number] ####Dispatcher Service Chief: AMAN MEDINAMONSEOMID ([id number])[facility] [place] ([facility])[address] [place] [address] [place] LYMPHOCYTES/100 LEUKOCYTES IN BLOOD-CELLAVISION 5 % Low 15-45 [facility] Comment on above: Performed By: #### L [id number], [id number] ####Dispatcher Service Chief: AMAN MEDINAANGELA ([id number])[facility] [place] ([facility])[address] [place] [address] [place] METAMYELOCYTES TOTAL PER COUNTED LEUKOCYTES BY MANUAL COUNT [facility] Comment on above: Performed By: #### L [id number], [id number] ####Dispatcher Service Chief: AMAN MEDINAANGELA ([phone])[facility] [place] ([facility])[address] [place] [address] [place] MONOCYTES (10*3/UL) IN BLOOD-CELLAVISION 4.9 10*3/uL High 0.0-0.9 [facility] Comment on above: Performed By: #### L [id number], [id number] ####Dispatcher Service Chief: AMAN HEARDOMID ([id number])[facility] [place] ([facility])[address] [place] [address] [place] MONOCYTES TOTAL PER COUNTED LEUKOCYTES BY MANUAL COUNT 25 Normal [facility] Comment on above: Performed By: #### L [id number], [id number] ####Dispatcher Service Chief: AMAN SANTOS ([id number])[facility] ([facility])[address] [place] [address] [place] MONOCYTES/100 LEUKOCYTES IN BLOOD-IBETH 25 % High 5-13 [facility] Comment on above: Performed By: #### L [id number], [id number] ####Dispatcher Service Chief: AMAN TATECER ([id number])[facility] ([facility])[address] [place] [address] [place] MYELOCYTES COUNTED BY MANUAL COUNT Normal [facility] Comment on above: Performed By: #### L [id number], [id number] ####Dispatcher Service Chief: AMAN TATECER ([id number])[facility] ([facility])[address] [place] [address] [place] NEUTROPHILS BAND FORM/100 LEUKOCYTES IN BLOOD-CELLAVISI 2 % High <=0 [facility] Comment on above: Performed By: #### L [id number], [id number] ####Dispatcher Service Chief: AMAN SANTOS ([id number])[facility] ([facility])[address] [place] [address] [place] NEUTROPHILS TOTAL PER COUNTED LEUKOCYTES BY MANUAL COUNT 69 Normal [facility] Comment on above: Performed By: #### L [id number], [id number] ####Dispatcher Service Chief: AMAN SANTOS ([id number])[facility] ([facility])[address] [place] [address] [place] OVALOCYTES PRESENCE IN BLOOD BY LIGHT MICROSCOPY Slight Abnormal (none) [facility] Comment on above: Performed By: #### L [id number], [id number] ####Dispatcher Service Chief: AMAN TATECER ([id number])[facility] ([facility])[address] [place] [address] [place] PLATELETS GIANT PRESENCE IN BLOOD BY LIGHT MICROSCOPY Rare Abnormal (none) [facility] Comment on above: Performed By: #### L [id number], [id number] ####Dispatcher Service Chief: AMAN SANTOS ([phone])[facility] ([facility])[address] [place] [address] [place] POIKILOCYTOSIS (PRESENCE) IN BLOOD BY LIGHT MICROSCOPY Slight Abnormal (none) [facility] Comment on above: Performed By: #### L [id number], [id number] ####Dispatcher Service Chief: AMAN SANTOS ([id number])[facility] ([facility])[address] [place] [address] [place] POLYCHROMASIA IN BLOOD BY LIGHT MICROSCOPY Slight Abnormal (none) [facility] Comment on above: Performed By: #### L [id number], [id number] ####Dispatcher Service Chief: AMAN SANTOS ([id number])[facility] ([facility])[address] [place] [address] [place] PROMYELOCYTES TOTAL PER COUNTED LEUKOCYTES BY MANUAL COUNT Normal [facility] Comment on above: Performed By: #### L [id number], [id number] ####Dispatcher Service Chief: AMAN SANTOS ([phone])[facility] ([facility])[address] [place] [address] [place] RBC MORPHOLOGY IN BLOOD abnormal Normal [facility] Comment on above: Performed By: #### L [id number], [id number] ####Dispatcher Service Chief: AMAN SANTOS ([phone])[facility] ([facility])[address] [place] [address] [place] SEGMENTED NEUTROPHILS (10*3/UL) IN BLOOD-CELLAVISION 13.6 10*3/uL High 1.8-7.5 [facility] Comment on above: Performed By: #### L [id number], [id number] ####Dispatcher Service Chief: AMAN SANTOS ([id number])[facility] [place] ([facility])[address] [place] [address] [place] SEGMENTED NEUTROPHILS/100 LEUKOCYTES-CE 68 % Normal 38-82 [facility] Comment on above: Performed By: #### L [id number], [id number] ####Dispatcher Service Chief: AMAN SANTOS ([id number])[facility] ([facility])[address] [place] [address] [place] STOMATOCYTES IN BLOOD BY LIGHT MICROSCOPY Moderate Abnormal (none) [facility] Comment on above: Performed By: #### L [id number], [id number] ####Dispatcher Service Chief: AMAN HEARDOMID ([id number])[facility] ([facility])[address] UNCLASSIFIED CELLS TOTAL PER COUNTED LEUKOCYTES BY MANUAL COUNT Normal [facility] Comment on above: Performed By: #### L [id number], [id number] ####Dispatcher Service Chief: AMAN MEDINAANGELA ([id number])[facility] [place] ([facility])[address] VARIANT LYMPHOCYTES TOTAL PER COUNTED LEUKOCYTES BY MANUAL COUNT Normal [facility] Comment on above: Performed By: #### L [id number], [id number] ####Dispatcher Service Chief: MAAN HEARDOMID ([id number])[facility] [place] ([facility])[address] ANISOCYTOSIS PRESENCE IN BLOOD BY LIGHT MICROSCOPY Slight Abnormal (none) [facility] Comment on above: Performed By: #### L [id number], [id number] ####Dispatcher Service Chief: AMAN MEDINAANGELA ([phone])[facility] [place] ([facility])[address] BAND NEUTROPHILS TOTAL PER COUNTED LEUKOCYTES BY MANUAL COUNT 3 Normal [facility] Comment on above: Performed By: #### L [id number], [id number] ####Dispatcher Service Chief: AMAN MEDINAANGELA ([id number])[facility] [place] ([facility])[address] [place] [address] [place] BANDS (10*3/UL) IN BLOOD-CELLAVISION 0.6 10*3/uL High <=0.0 [facility] Comment on above: Performed By: #### L [id number], [id number] ####Dispatcher Service Chief: AMAN SANTOS ([id number])[facility] [place] ([facility])[address] [place] [address] [place] BASOPHILS TOTAL PER COUNTED LEUKOCYTES BY MANUAL COUNT Normal [facility] Comment on above: Performed By: #### L [id number], [id number] ####Dispatcher Service Chief: AMAN SANTOS ([id number])[facility] [place] ([facility])[address] [place] [address] [place] BLASTS TOTAL PER COUNTED LEUKOCYTES BY MANUAL COUNT Normal [facility] Comment on above: Performed By: #### L [id number], [id number] ####Dispatcher Service Chief: AMAN SANTOS ([phone])[facility] [place] ([facility])[address] [place] [address] [place] EOSINOPHILS (10*3/UL) IN BLOOD-CELLAVISION 0.2 10*3/uL Normal 0.0-0.5 [facility] Comment on above: Performed By: #### L [id number], [id number] ####Dispatcher Service Chief: AMAN SANTOS ([id number])[facility] [place] ([facility])[address] [place] [address] [place] EOSINOPHILS TOTAL PER COUNTED LEUKOCYTES BY MANUAL COUNT 1 Normal 0-1 [facility] Comment on above: Performed By: #### L [id number], [id number] ####Dispatcher Service Chief: AMAN SANTOS ([id number])[facility] [place] ([facility])[address] [place] [address] [place] EOSINOPHILS/100 LEUKOCYTES IN BLOOD-CELLAVISION 1 % Normal 0-6 [facility] Comment on above: Performed By: #### L [id number], [id number] ####Dispatcher Service Chief: AMAN SANTOS ([id number])[facility] [place] ([facility])[address] [place] [address] [place] LYMPHOCYTES (10*3/UL) IN BLOOD-CELLAVISION 0.9 10*3/uL Low 1.0-4.3 [facility] Comment on above: Performed By: #### L [id number], [id number] ####Dispatcher Service Chief: AMAN SANTOS ([id number])[facility] [place] ([facility])[address] [place] [address] [place] LYMPHOCYTES TOTAL PER COUNTED LEUKOCYTES BY MANUAL COUNT 4 Normal [facility] Comment on above: Performed By: #### L [id number], [id number] ####Dispatcher Service Chief: AMAN SANTOS ([id number])[facility] ([facility])[address] [place] [address] [place] LYMPHOCYTES/100 LEUKOCYTES IN BLOOD-CELLAVISION 4 % Low 15-45 [facility] Comment on above: Performed By: #### L [id number], [id number] ####Dispatcher Service Chief: AMAN SANTOS ([id number])[facility] [place] ([facility])[address] [place] [address] [place] METAMYELOCYTES TOTAL PER COUNTED LEUKOCYTES BY MANUAL COUNT Normal [facility] Comment on above: Performed By: #### L [id number], [id number] ####Dispatcher Service Chief: AMAN SANTOS ([id number])[facility] [place] ([facility])[address] [place] [address] [place] MONOCYTES (10*3/UL) IN BLOOD-CELLAVISION 2.3 10*3/uL High 0.0-0.9 [facility] Comment on above: Performed By: #### L [id number], [id number] ####Dispatcher Service Chief: AMAN SANTOS ([id number])[facility] [place] ([facility])[address] [place] [address] [place] MONOCYTES TOTAL PER COUNTED LEUKOCYTES BY MANUAL COUNT 11 Normal [facility] Comment on above: Performed By: #### L [id number], [id number] ####Dispatcher Service Chief: AMAN SANTOS ([id number])[facility] [place] ([facility])[address] [place] [address] [place] MONOCYTES/100 LEUKOCYTES IN BLOOD-IBETH 11 % Normal 5-13 [facility] Comment on above: Performed By: #### L [id number], [id number] ####Dispatcher Service Chief: AMAN SANTOS ([phone])[facility] [place] ([facility])[address] [place] [address] [place] MYELOCYTES COUNTED BY MANUAL COUNT Normal [facility] Comment on above: Performed By: #### L [id number], [id number] ####Dispatcher Service Chief: AMAN SANTOS ([phone])[facility] [place] (SBHLAB)[address] NEUTROPHILS BAND FORM/100 LEUKOCYTES IN BLOOD-CELLAVISI 3 % High <=0 [facility] Comment on above: Performed By: #### L [id number], [id number] ####Dispatcher Service Chief: AMAN SANTOS ([phone])[facility] [place] ([facility])[address] NEUTROPHILS TOTAL PER COUNTED LEUKOCYTES BY MANUAL COUNT 83 Normal [facility] Comment on above: Performed By: #### L [id number], [id number] ####Dispatcher Service Chief: AMAN SANTOS ([phone])[facility] [place] (SBHLAB)[address] POIKILOCYTOSIS (PRESENCE) IN BLOOD BY LIGHT MICROSCOPY Slight Abnormal (none) [facility] Comment on above: Performed By: #### L [id number], [id number] ####Dispatcher Service Chief: AMAN SANTOS ([phone])[facility] [place] (SBHLAB)[address] [place] [address] [place] PROMYELOCYTES TOTAL PER COUNTED LEUKOCYTES BY MANUAL COUNT Normal [facility] Comment on above: Performed By: #### L [id number], [id number] ####Dispatcher Service Chief: AMAN SANTOS ([phone])[facility] [place] ([facility])[address] [place] [address] [place] RBC MORPHOLOGY IN BLOOD abnormal Normal [facility] Comment on above: Performed By: #### L [id number], [id number] ####Dispatcher Service Chief: AMAN SANTOS ([phone])[facility] [place] ([facility])[address] [place] [address] [place] SEGMENTED NEUTROPHILS (10*3/UL) IN BLOOD-CELLAVISION 17.9 10*3/uL High 1.8-7.5 [facility] Comment on above: Performed By: #### L [id number], [id number] ####Dispatcher Service Chief: AMAN SANTOS ([id number])[facility] [place] ([facility])[address] SEGMENTED NEUTROPHILS/100 LEUKOCYTES-CE 81 % Normal 38-82 [facility] Comment on above: Performed By: #### L [id number], [id number] ####Dispatcher Service Chief: AMAN SANTOS ([id number])[facility] [place] ([facility])[address] STOMATOCYTES IN BLOOD BY LIGHT MICROSCOPY Moderate Abnormal (none) [facility] Comment on above: Performed By: #### L [id number], [id number] ####Dispatcher Service Chief: AMAN SANTOS ([phone])[facility] [place] (SB[facility])[address] UNCLASSIFIED CELLS TOTAL PER COUNTED LEUKOCYTES BY MANUAL COUNT Normal [facility] Comment on above: Performed By: #### L [id number], [id number] ####Dispatcher Service Chief: AMAN SANTOS ([id number])[facility] [place] ([facility])[address] VARIANT LYMPHOCYTES TOTAL PER COUNTED LEUKOCYTES BY MANUAL COUNT Normal [facility] Comment on above: Performed By: #### L [id number], [id number] ####Dispatcher Service Chief: AMAN SANTOS ([id number])[facility] [place] ([facility])[address] No Panel InformationOrdered By: Farhat Perdomo on 02-15-2024 P [place] 0 degrees [facility] Work Phone: [place] Interval 0 ms [employer] Work Phone: QRS [place] 39 degrees [employer] Work Phone: QRSD Interval 78 ms [facility] Work Phone: QT Interval 318 ms [employer] Work Phone: QTC Interval 449 ms [employer] Work Phone: T Wave [place] 211 degrees [employer] Work Phone: [employer] Work Phone: No Panel Informationon 02-14 Atrial fibrillation Ventricular premature complex Low voltage, extremity leads Abnormal R-wave progression, late transition Nonspecific repol abnormality, diffuse leads Electronically Signed On 02-15-2024 18:40:19 EST by Farhat Perdomo Farhat Hagan MD - 02/15/2024 IMPRESSION: Atrial fibrillation Ventricular premature complex Low voltage, extremity leads Abnormal R-wave progression, late transition Nonspecific repol abnormality, diffuse leads Electronically Signed On 02-15-2024 18:40:19 EST by Farhat Perdomo [employer] SINUS ARRHYTHMIA Probable anterior infarct, age indeterminate Electronically Signed On 02-15-2024 13:42:34 EST by Ovidio Price Ovidio Fernandez MD - 02/15/2024 IMPRESSION: SINUS ARRHYTHMIA Probable anterior infarct, age indeterminate Electronically Signed On 02-15-2024 13:42:34 EST by Ovidio Price [facility] Atypical Lymphocytes Manual [facility] Bands Manual 2 [facility] Basophils Manual [facility] Blasts Manual [facility] Eosinophils Manual [facility] Interpretation and review of laboratory results Abnormal [facility] Lymphocytes Manual 5 [facility] Metamyelocytes Manual [facility] Monocytes Manual 25 [facility] Myelocytes Manual [facility] Neutrophils Manual 69 [facility] Promyelocytes Manual [facility] Unclassified Cells, Manual [facility] Atypical Lymphocytes Manual [facility] Bands Manual 3 [facility] Basophils Manual [facility] Blasts Manual [facility] Eosinophils Manual 1 0 - 1 [facility] Interpretation and review of laboratory results Abnormal [facility] Lymphocytes Manual 4 [facility] Metamyelocytes Manual [facility] Monocytes Manual 11 [facility] Myelocytes Manual [facility] Neutrophils Manual 83 [facility] Promyelocytes Manual [facility] Unclassified Cells, Manual [facility] Interpretation and review of laboratory results Normal [facility] No Panel InformationOrdered By: Ovidio Price on 02-15-2024 P [place] 0 degrees [facility] Work Phone: [place] Interval 0 ms [facility] Work Phone: QRS [place] 79 degrees [employer] Work Phone: QRSD Interval 83 ms [employer] Work Phone: QT Interval 320 ms [employer] Work Phone: QTC Interval 392 ms [employer] Work Phone: [phone] T Wave [place] -61 degrees [employer] Work Phone: [employer] Work Phone: Progress Noteon 02-15-2024 Progress Note Normal [facility] Progress Note Normal [facility] Progress Note PHYSICAL THERAPY [facility] Name/MRN: Alta Baker ([id number]) Date: 02/15/2024 PT orders received. Chart reviewed. CT lumbar spine exam ended but not resulted. Will await results prior to initiating therapy evals. Sherin Molina, PT Normal [facility] Urinalysis complete panel (U )Ordered By: Nano Contreras on 02-15-2024 Bacteria LM.HPF (Urine sed) [#/Area] Few Abnormal Negative /HPF [facility] Bilirubin Ql (U) Negative Negative mg/dL [facility] Clarity (U) Turbid Abnormal Clear [facility] Color (U) Yellow Lt. Yellow [facility] Epithelial cells.squamous LM.HPF (Urine sed) [#/Area] 11-25 Abnormal [facility] Glucose Ql (U) Normal Normal (<70) mg/dL [facility] Hemoglobin Ql (U) 0.1 mg/dL Abnormal Negative [facility] Hyaline casts Auto (Urine sed) [#/Area] 0-2 Abnormal Negative /LPF [facility] Interpretation and review of laboratory results Abnormal [facility] Ketones (U) [Mass/Vol] Negative Negat ute mg/dL [facility] Leukocyte esterase Test strip Ql (U) Negative Negative Ghada/uL [facility] Mucus LM.HPF (Urine sed) [#/Area] Few Negative /LPF [facility] Nitrite Ql (U) Negative Negative [facility] pH (U) 5.5 [pH] 5.0 - 8.0 pH [facility] Protein (U) [Mass/Vol] 100 mg/dL Abnormal Negative [facility] RBC LM.HPF (Urine sed) [#/Area] 6-10 Abnormal [facility] Specific gravity (U) [Rel density] 1.019 1.005 - 1.030 [facility] Urobilinogen (U) [Mass/Vol] 3 mg/dL Abnormal Normal (0-1) [facility] WBC LM.HPF (Urine sed) [#/Area] 3-5 [facility] Vital signsOrdered By: Farhat Perdomo on 02-15-2024 Heart rate 120 /min bpm [facility] [employer] Work Phone: Vital signsOrdered By: Ovidio Albert on 02-15-2024 Heart rate 90 /min bpm [facility] Work Phone: XR Chest 2 Viewson Cardiomegaly. Atelec tasis at the right lung base. Report Dictated on Electronically Signed By: Damien Alexandra MD Electronically Signed Date/Time: 02/15/2024 11:09 AM EST [facility] [place] [employer] Patient Name: ALTA MOYA : 1950 Exam Date/Time: 02/14/2024 13:40 Procedure: XR CHEST 2 VIEWS Ordering Provider: LAST JAMES Reason For Exam: cough and congestion CHEST: CLINICAL INDICATION: Cough and congestion. Back pain TECHNIQUE: PA and Lateral COMPARISON: 12/16/2023 FINDINGS: The heart is enlarged. Atherosclerotic calcification of the thoracic aortic is noted. Atelectasis at the right lung base. No consolidation. There is no evidence for pleural effusion. The osseous structures are unremarkable. [facility] [place] [employer] Damien Alexandra MD - 02/15/2024 Patient Name: ALTA BAKER : 1950 Exam Date/Time: 02/14/2024 13:40 Procedure: XR CHEST 2 VIEWS Ordering Provider: LAST JAMES Reason For Exam: cough and congestion CHEST: CLINICAL INDICATION: Cough and congestion. Back pain TECHNIQUE: PA and Lateral COMPARISON: 12/16/2023 FINDINGS: The heart is enlarged. Atherosclerotic calcification of the thoracic aortic is noted. Atelectasis at the right lung base. No consolidation. There is no evidence for pleural effusion. The osseous structures are unremarkable. IMPRESSION: Cardiomegaly. Atelectasis at the right lung base. Report Dictated on Electronically Signed By: Damien Alexandra MD Electronically Signed Date/Time: 02/15/2024 11:09 AM [employer] XR Chest 2 ViewsOrdered By: Damien Alexandra on 02-15-2024 [employer] Work Phone: XR Chest Single viewon 02-14 1. No acute cardiopulmonary process. 2. Cardiomegaly. Report Dictated on Electronically Signed By: Brayden Hernandez MD Electronically Signed Date/Time: 02/15/2024 1:50 AM [facility] [employer] [facility] Patient Name: ALTA MOYA : 1950 Exam Date/Time: 02/15/2024 01:04 Procedure: XR CHEST 1 VIEW Ordering Provider: ROCHA MARY Reason For Exam: cough eval pna CHEST X-RAY AP CLINICAL INDICATION: Cough AP radiograph of the chest was obtained. COMPARISON: 02/14/2024 FINDINGS: The cardiac silhouette is enlarged similar to the prior exam. The exam was obtained at low inspiratory volumes resulting in crowding of the pulmonary interstitial markings. Otherwise no new focal consolidation or opacification is seen within the lungs. No pleural effusion or pneumothorax is identified. Degenerative changes of the thoracic spine are noted. [facility] [place] [employer] Brayden Hernandez MD - 02/15/2024 Patient Name: ALTA BAKER : 1950 Exam Date/Time: 02/15/2024 01:04 Procedure: XR CHEST 1 VIEW Ordering Provider: ROCHA MARY Reason For Exam: cough eval pna CHEST X-RAY AP CLINICAL INDICATION: Cough AP radiograph of the chest was obtained. COMPARISON: 02/14/2024 FINDINGS: The cardiac silhouette is enlarged similar to the prior exam. The exam was obtained at low inspiratory volumes resulting in crowding of the pulmonary interstitial markings. Otherwise no new focal consolidation or opacification is seen within the lungs. No pleural effusion or pneumothorax is identified. Degenerative changes of the thoracic spine are noted. IMPRESSION: 1. No acute cardiopulmonary process. 2. Cardiomegaly. Report Dictated on Electronically Signed By: Brayden Hernandez MD Electronically Signed Date/Time: 02/15/2024 1:50 AM EST [facility] Radiology Study observation (narrative) [facility] XR Chest Single viewOrdered By: Brayden Hernandez on 02-15-2024 [facility] Work Phone: 29on 02-14-2024 29 Addended by: NESTOR MENDOZA on: 02/14/2024 01:12 PM Modules accepted: Orders Normal [facility] 36on 02-14-2024 36 Normal [facility] 36 Triage message revie wed with clinical staff. Patient appointment confirmed. PCP will assess at appointment visit. Normal [facility] CBC W Auto Differential pane l (Bld)Ordered By: Ashley Llamas on 02-14-2024 Basophils (Bld) [#/Vol] 0 10*3/uL 0.0 - 0.2 10*3/uL [facility] Basophils/100 WBC (Bld) 0.1 % 0.0 - 2.0 % [facility] Eosinophils (Bld) [#/Vol] 0 10*3/uL 0.0 - 0.5 10*3/uL [facility] Eosinophils/100 WBC (Bld) 0 % 0.0 - 6.0 % [facility] Erythrocyte distribution width (RBC) [Ratio] 16.5 % High 11.5 - 15.0 % [facility] Hematocrit (Bld) [Volume fraction] 37.6 % 35.0 - 47.0 % [facility] Hemoglobin (Bld) [Mass/Vol] 11.8 g/dL 11.7 - 16.0 g/dL [facility] Immature granulocytes (Bld) [#/Vol] 0.4 10*3/uL High NINF - 0.1 10*3/uL [facility] Immature granulocytes/100 WBC (Bld) 1.5 % 0.0 - 2.0 % [facility] Interpretation and review of laboratory results Abnormal [facility] Lymphocytes (Bld) [#/Vol] 1.1 10*3/uL 1.0 - 4.3 10*3/uL [facility] Lymphocytes/100 WBC (Bld) 4.2 % Low 15.0 - 45.0 % [facility] MCH (RBC) [Entitic mass] 28.6 pg 26.0 - 34.0 pg [facility] MCHC (RBC) [Mass/Vol] 31.4 % 30.5 - 36.0 % [facility] MCV (RBC) [Entitic vol] 91 fL 77.0 - 99.0 fL [facility] Monocytes (Bld) [#/Vol] 6.1 10*3/uL High 0.0 - 0.9 10*3/uL [facility] Monocytes/100 WBC (Bld) 24.1 % High 5.0 - 13.0 % [facility] Neutrophils (Bld) [#/Vol] 17.7 10*3/uL High 1.8 - 7.5 10*3/uL [facility] Neutrophils/100 WBC (Bld) 70.1 % 38.0 - 82.0 % [facility] Nucleated RBC/100 WBC (Bld) [Ratio] 0 % [facility] Platelet mean volume (Bld) [Entitic vol] 12.7 fL 9.0 - 12.7 fL [facility] Comment on above: MPV is a calculated measurement using platelet volume ratio Platelets (Bld) [#/Vol] 114 10*3/uL Low 140 - 440 10*3/uL [facility] RBC (Bld) [#/Vol] 4.13 10*6/uL 3.80 - 5.2 0 10*6/uL [facility] WBC (Bld) [#/Vol] 25.3 10*3/uL High 3.6 - 10.7 10*3/uL [facility] CBC WITH AUTO DIFFERENTIALon 02-14-2024 Basophils (Bld) [#/Vol] 0.0 10*3/uL Normal 0.0-0.2 [facility] Comment on above: Performed By: #### Manpreet [id number], [id number] ####Dispatcher Service Chief: VIVIAN PANTOJA ([phone])[facility] [place] (SWRLAB)[address] [place] [address] [place] Basophils/100 WBC (Bld) 0.1 % Normal 0.0-2.0 [facility] Comment on above: Performed By: #### Manpreet [id number], [id number] ####Dispatcher Service Chief: VIVIAN PANTOJA ([phone])[facility] [place] (SWRL[place])[address] [place] [address] [place] Eosinophils (Bld) [#/Vol] 0.0 10*3/uL Normal 0.0-0.5 [facility] Comment on above: Performed By: #### Manpreet AB322, [id number] ####Dispatcher Service Chief: VIVIAN PANTOJA ([phone])[facility] [place] (SWRLAB)[address] [place] [address] [place] Eosinophils/100 WBC (Bld) 0.0 % Normal 0.0-6.0 [facility] Comment on above: Performed By: #### Manpreet AB322, [id number] ####Dispatcher Service Chief: VIVIAN PANTOJA ([phone])[facility] [place] (SWRLAB)[address] [place] [address] Erythrocyte distribution width (RBC) [Ratio] 16.5 % High 11.5-15.0 [facility] Comment on above: Performed By: #### Manpreet AB322, [id number] ####Dispatcher Service Chief: VIVIAN PANTOJA ([phone])[facility] [place] (SWRL[place])[address] [place] [address] Hematocrit (Bld) [Volume fraction] 37.6 % Normal 35.0-47.0 [facility] Comment on above: Performed By: #### Manpreet AB322, [id number] ####Dispatcher Service Chief: VIVIAN PANTOJA ([phone])[facility] [place] (SWRL[place])[address] [place] [address] [place] Hemoglobin (Bld) [Mass/Vol] 11.8 g/dL Normal 11.7-16.0 [facility] Comment on above: Performed By: #### Manpreet AB322, [id number] ####Dispatcher Service Chief: VIVIAN PANTOJA ([phone])[facility] [place] (SWRL[place])[address] [place] [address] IMMATURE GRANS % 1.5 % Normal 0.0-2.0 [facility] Comment on above: Performed By: #### Manpreet AB322, [id number] ####Dispatcher Service Chief: VIVIAN PANTOJA ([phone])[facility] [place] (SW[place])[address] [place] [address] IMMATURE GRANS ABSOLUTE 0.4 10*3/uL High <0.1 [facility] Comment on above: Performed By: #### Manpreet AB322, [id number] ####Dispatcher Service Chief: VIVIAN PANTOJA ([phone])[facility] [place] (SWRL[place])[address] [place] [address] [place] Lymphocytes (Bld) [#/Vol] 1.1 10*3/uL Normal 1.0-4.3 [facility] Comment on above: Performed By: #### Manpreet AB322, [id number] ####Dispatcher Service Chief: VIVINA PANTOJA ([phone])[facility] [place] (SWRL[place])[address] [place] [address] [place] Lymphocytes/100 WBC (Bld) 4.2 % Low 15.0-45.0 [facility] Comment on above: Performed By: #### L [id number], [id number] ####Dispatcher Service Chief: VIVIAN PANTOJA ([phone])[facility] [place] (SWRL[place])[address] [place] [address] MCH (RBC) [Entitic mass] 28.6 pg Normal 26.0-34.0 [facility] Comment on above: Performed By: #### Manpreet AB322, [id number] ####Dispatcher Service Chief: VIVIAN PANTOJA ([id number])[facility] [place] (SWRL[place])[address] [place] [address] MCHC 31.4 % Normal 30.5-36.0 [facility] Comment on above: Performed By: #### Manpreet AB322, [id number] ####Dispatcher Service Chief: VIVIAN PANTOJA ([phone])[facility] [place] ([place])[address] [place] [address] MCV (RBC) [Entitic vol] 91.0 fL Normal 77.0-99.0 [facility] Comment on above: Performed By: #### Manpreet [id number], [id number] ####Dispatcher Service Chief: VIVIAN PANTOJA ([phone])[facility] [place] (SWRL[place])[address] [place] [address] Monocytes (Bld) [#/Vol] 6.1 10*3/uL High 0.0-0.9 [facility] Comment on above: Performed By: #### Manpreet AB322, [id number] ####Dispatcher Service Chief: VIVIAN PANTOJA ([phone])[facility] [place] (SWRL[place])[address] [place] [address] [place] Monocytes/100 WBC (Bld) 24.1 % High 5.0-13.0 [facility] Comment on above: Performed By: #### Manpreet AB322, [id number] ####Dispatcher Service Chief: VIVIAN PANTOJA ([phone])[facility] [place] (SWRLAB)[address] [place] [address] [place] NEUTROPHILS ABSOLUTE 17.7 10*3/uL High 1.8-7.5 [facility] Comment on above: Performed By: #### Manpreet AB322, [id number] ####Dispatcher Service Chief: VIVIAN PANTOJA ([phone])[facility]ENTER[facility] [place] (SWRLAB)[address] [place] [address] [place] Neutrophils/100 WBC (Bld) 70.1 % Normal 38.0-82.0 [facility] Comment on above: Performed By: #### Manpreet AB322, [id number] ####Dispatcher Service Chief: VIVIAN PANTOJA ([phone])[facility] [place] (SWRL[place])[address] [place] [address] NRBC 0.0 /100 WBCs Normal 0.0-2.0 [facility] Comment on above: Performed By: #### Manpreet AB322, [id number] ####Dispatcher Service Chief: VIVIAN PANTOJA ([id number])[facility] [place] (SW[place])[address] [place] [address] Platelet mean volume (Bld) [Entitic vol] 12.7 fL Normal 9.0-12.7 [facility] Comment on above: Result Comment: MPV is a calculated measurement using platelet volume ratio Performed By: #### Manpreet [id number], [id number] ####Dispatcher Service Chief: VIVIAN PANTOJA ([phone])[facility]ENTER[facility] [place] (SW[place])[address] [place] [address] [place] Platelets (Bld) [#/Vol] 114 10*3/uL Low 140-440 [facility] Comment on above: Performed By: #### Manpreet AB322, [id number] ####Dispatcher Service Chief: VIVIAN PANTOJA ([id number])[facility]ENTER[facility] [place] (SW[place])[address] [place] [address] RBC (Bld) [#/Vol] 4.13 10*6/uL Normal 3.80-5.20 [facility] Comment on above: Performed By: #### L AB322, [id number] ####Dispatcher Service Chief: VIVIAN PANTOJA ([id number])[facility] [place] (SWRL[place])[address] [place] [address] [place] WBC (Bld) [#/Vol] 25.3 10*3/uL High 3.6-10.7 [facility] Comment on above: Performed By: #### L AB322, [id number] ####Dispatcher Service Chief: VIVIAN PANTOJA ([id number])[facility]ENTER[facility] [place] (SW[place])[address] COMPREHENSIVE METABOLIC PANE Amaury 02-14-2024 Albumin [Mass/Vol] 4.1 g/dL Normal 3.5-5.0 [facility] Comment on above: Performed By: #### L AB17, LAB99 ####Dispatcher Service Chief: VIVIAN PANTOJA ([id number])[facility]ENTER[facility] [place]ARTINEZRUD[place] (SWRLAB)[address] ALP [Catalytic activity/Vol] 80 U/L Normal 38-126 [facility] Comment on above: Performed By: #### L AB17, LAB99 ####Dispatcher Service Chief: VIVIAN PANTOJA ([id number])[facility] [place]ZR[place] (SWRLAB)[address] [place] [address] [place] ALT [Catalytic activity/Vol] 20 U/L Normal 0-34 [facility] Comment on above: Performed By: #### L AB17, LAB99 ####Dispatcher Service Chief: VIVIAN PANTOJA ([phone])[facility]ENTER[facility] [place] (SWRL[place])[address] Anion gap [Moles/Vol] 8 mmol/L Normal 3-13 [facility] Comment on above: Performed By: #### L AB17, LAB99 ####Dispatcher Service Chief: VIVIAN PANTOJA ([phone])[facility]ENTER[facility] [place]ZR[place] (SWRLAB)[address] [place] [address] [place] AST [Catalytic activity/Vol] 20 U/L Normal 15-46 [facility] Comment on above: Performed By: #### L AB17, LAB99 ####Dispatcher Service Chief: VIVIAN PANTOJA ([id number])[facility]ENTER[facility] [place]ZRUD[place] (SWRLAB)[address] [place] [address] [place] Bilirubin [Mass/Vol] 2.3 mg/dL High 0.2-1.3 [facility] Comment on above: Performed By: #### L AB17, LAB99 ####Dispatcher Service Chief: VIVIAN PANTOJA ([phone])[facility] [place] (SWRL[place])[address] [place] [address] [place] Calcium [Mass/Vol] 9.6 mg/dL Normal 8.4-10.4 [facility] Comment on above: Performed By: #### L AB17, LAB99 ####Dispatcher Service Chief: VIVIAN PANTOJA ([phone])[facility]ENTERA [place] (SWRLAB)[address] [place] [address] [place] Chloride [Moles/Vol] 99 mmol/L Normal 98-107 [facility] Comment on above: Performed By: #### Manpreet AB17, LAB99 ####Dispatcher Service Chief: VIVIAN PANTOJA ([id number])[facility]ENTER[facility] [place] [facility] (SWRLAB)[address] [place] [address] [place] CO2 [Moles/Vol] 33 mmol/L High 22-30 [facility] Comment on above: Performed By: #### Manpreet AB17, LAB99 ####Dispatcher Service Chief: VIVIAN PANTOJA ([id number])[facility]ENTERB[facility] MARTINEZRUDDY [place]TM[place] (SWRLAB)[address] [place] [address] [place] Creatinine [Mass/Vol] 0.56 mg/dL Normal 0.52-1.04 [facility] Comment on above: Performed By: #### L AB17, LAB99 ####Dispatcher Service Chief: VIVIAN PANTOJA ([phone])[facility]ENTER[facility] [place]INEZRUDDY [place] (SWRLAB)[address] GLOMERULAR FILTRATION RATE ML/MIN/1.73 SQ M.PREDICTED >90.0 Normal >60.0 [facility] Comment on above: Result Comment: Calc ulation based on the Chronic Kidney Disease Epidemiology Collaboration (CKD-EPI) equation refit without adjustment for race Performed By: #### L AB17, LAB99 ####Dispatcher Service Chief: VIVIAN [id number])[facility]ENTER[facility] [place]O [facility] (SWRLAB)[address] [place] [address] [place] Glucose [Mass/Vol] 129 mg/dL High 70-100 [facility] Comment on above: Performed By: #### L AB17, LAB99 ####Dispatcher Service Chief: VIVIAN PANTOJA ([phone])[facility]ENTER[facility]ess[facility] FOX RITTMAN (SWRLAB)[address] [place] [address] [place] Potassium [Moles/Vol] 4.0 mmol/L Normal 3.5-5.1 [facility] Comment on above: Performed By: #### L AB17, LAB99 ####Dispatcher Service Chief: VIVIAN PANTOJA ([phone])[facility]ENTER[facility] (SWRLAB)[address] [place] [address] [place] Protein [Mass/Vol] 6.7 g/dL Normal 6.3-8.2 [facility] Comment on above: Performed By: #### L AB17, LAB99 ####Dispatcher Service Chief: VIVIAN PANTOJA ([phone])[facility]ENTER[facility] (SWRLAB)[address] [place] [address] [place] Sodium [Moles/Vol] 141 mmol/L Normal 135-145 [facility] Comment on above: Performed By: #### L AB17, LAB99 ####Dispatcher Service Chief: VIVIAN PANTOJA ([phone])[facility]ENTER[facility] (SWRLAB)[address] [place] [address] [place] Urea nitrogen [Mass/Vol] 16 mg/dL Normal 7-17 [facility] Comment on above: Performed By: #### L AB17, LAB99 ####Dispatcher Service Chief: VIVIAN PANTOJA ([phone])[facility]ENTERB[facility] FOX [facility] (SWRLAB)[address] Lumbar spine WO contrasto n 02-14-2024 Radiology Study observation (narrative) [facility] Comprehensive metabolic 1998 panelon 02-14-2024 Albumin [Mass/Vol] 4.1 g/dL 3.5 - 5.0 g/dL [facility] ALP [Catalytic activity/Vol] 80 U/L 38 - 126 U/L [facility] ALT [Catalytic activity/Vol] 20 U/L 0 - 34 U/L [facility] Anion gap [Moles/Vol] 8 mmol/L 3 - 13 mmol/L [facility] AST [Catalytic activity/Vol] 20 U/L 15 - 46 U/L [facility] Bilirubin [Mass/Vol] 2.3 mg/dL High 0.2 - 1 .3 mg/dL [facility] Calcium [Mass/Vol] 9.6 mg/dL 8.4 - 10. 4 mg/dL [facility] Chloride [Moles/Vol] 99 mmol/L 98 - 10 7 mmol/L [facility] CO2 [Moles/Vol] 33 mmol/L High 22 - 30 mmol/L [facility] Creatinine [Mass/Vol] 0.56 mg/dL 0.52 - 1.04 mg/dL [facility] GFR/1.73 sq M.predicted (S/P/Bld) [Vol rate/Area] - PINF [facility] Comment on above: Calculation based on the Chronic Kidney Disease Epidemiology Collaboration (CKD-EPI) equation refit without adjustment for race Glucose [Mass/Vol] 129 mg/dL High 70 - 100 mg/dL [facility] Interpretation and review of laboratory results Abnormal [facility] Potassium [Moles/Vol] 4 mmol/L 3.5 - 5.1 mmol/L [facility] Protein [Mass/Vol] 6.7 g/dL 6.3 - 8.2 g/dL [facility] Sodium [Moles/Vol] 141 mmol/L 135 - 145 mmol/L [facility] Urea nitrogen [Mass/Vol] 16 mg/dL 7 - 17 mg/dL [facility] ED Provider Noteon ED Provider Note Normal [facility] ESR (Bld) [Velocity]on 02-13 Interpretation and review of laboratory results Normal [facility] HIGH SENSITIVITY CRPon 02-13 CRP, HIGH SENSITIVITY 43.6 mg/L High <=3.0 [facility] Comment on above: Result Comment: LEOBARDO Gill COMMENTS:Classification for Cardiovascular Disease RiskLow <1.00 mg/LAverage 1.00-3.00 mg/LHigh >3.00-10.00 mg/LIndeterminant* >10.00 mg/L*May be indication of another source of inflammation or infection. Performed By: #### L AB150 ####Dispatcher Service Chief: AMAN SANTOS ([phone])[facility] JUANYOSELYN (SBHLAB)[address] [place] [address] LIPASEon 02-14-2024 Lipase [Catalytic activity/Vol] 61 U/L Normal 23-300 [facility] Comment on above: Performed By: #### L AB17, LAB99 ####Dispatcher Service Chief: VIVIAN PANTOJA ([phone])[facility] RUDDY RUEDA (SWRLAB)[address] [place] [address] Laboratory - Chemistry and C hemistry - challengeon 02-14-2024 Lipase [Catalytic activity/Vol] 61 U/L 23 - 300 U/L [facility] Laboratory - Hematology and Cell countson 02-14-2024 ESR (Bld) [Velocity] 1 mm/h [facility] Lipase [Catalytic activity/V ol]on 02-14-2024 Interpretation and review of laboratory results Normal [facility] No Panel Informationon 02-13 [facility] Progress Noteon 02-14-2024 Progress Note Normal [facility] SEDIMENTATION RATE, AUTOMATE Don 02-14-2024 SEDIMENTATION RATE, ERYTHROCYTE 1 mm/hr Normal 0-20 [facility] Comment on above: Performed By: #### L [id number], [id number] ####Dispatcher Service Chief: VIVIAN PANTOJA ([phone])[facility] RUDDY CRUZTMAN (SWRLAB)[address] [place] [address] XR Chest 2 Viewson Radiology Study observation (narrative) [facility] 36on 02-11-2024 36 Normal [facility] CBC W Auto Differential pane l (Bld)on 02-11-2024 Erythrocyte distribution width (RBC) [Ratio] 16.3 % High 11.5 - 15.0 % [facility] Hematocrit (Bld) [Volume fraction] 36.4 % 35.0 - 47.0 % [facility] Hemoglobin (Bld) [Mass/Vol] 11.4 g/dL Low 11.7 - 16.0 g/dL [facility] IPF 14 [facility] MCH (RBC) [Entitic mass] 28.2 pg 26.0 - 34.0 pg [facility] MCHC (RBC) [Mass/Vol] 31.3 % 30.5 - 36.0 % [facility] MCV (RBC) [Entitic vol] 90.1 fL 77.0 - 99.0 fL [facility] Nucleated RBC/100 WBC (Bld) [Ratio] 0 % [facility] Platelet mean volume (Bld) [Entitic vol] 12.9 fL High 9.0 - 12.7 fL [facility] Platelets (Bld) [#/Vol] 92 10*3/uL Low 140 - 440 10*3/uL [facility] RBC (Bld) [#/Vol] 4.04 10*6/uL 3.80 - 5.2 0 10*6/uL [facility] WBC (Bld) [#/Vol] 18.5 10*3/uL High 3.6 - 10.7 10*3/uL [facility] CBC WITH AUTO DIFFERENTIALon 02-11-2024 Erythrocyte distribution width (RBC) [Ratio] 16.3 % High 11.5-15.0 [facility] Comment on above: Performed By: #### Manpreet [id number], [id number] ####Dispatcher Service Chief: VIVIAN PANTOJA ([phone])[facility])[address] [place] [address] Hematocrit (Bld) [Volume fraction] 36.4 % Normal 35.0-47.0 [facility] Comment on above: Performed By: #### L [id number], [id number] ####Dispatcher Service Chief: VIVIAN PANTOJA ([phone])[facility] [employer] (RLAB)[address] [place] [address] Hemoglobin (Bld) [Mass/Vol] 11.4 g/dL Low 11.7-16.0 [facility] Comment on above: Performed By: #### L [id number], [id number] ####Dispatcher Service Chief: VIVIAN PANTOJA ([phone])[facility] RITTMAN (SWRLAB)[address] [place] [address] IPF 14 Normal [facility] Comment on above: Performed By: #### L [id number], [id number] ####Dispatcher Service Chief: VIVIAN PANTOJA ([phone])[facility]ENTERBess[facility] FOX RITTMAN (SWRLAB)[address] [place] [address] MCH (RBC) [Entitic mass] 28.2 pg Normal 26.0-34.0 [facility] Comment on above: Performed By: #### L [id number], [id number] ####Dispatcher Service Chief: VIVIAN PANTOJA ([phone])[facility]ENTERB[facility] FOX R[facility] (SWRLAB)[address] [place] [address] MCHC 31.3 % Normal 30.5-36.0 [facility] Comment on above: Performed By: #### Manpreet [id number], [id number] ####Dispatcher Service Chief: VIVIAN PANTOJA ([phone])[facility]ENTERB[facility] FOX [facility] (SWRLAB)[address] [place] [address] MCV (RBC) [Entitic vol] 90.1 fL Normal 77.0-99.0 [facility] Comment on above: Performed By: #### L AH2401, [id number] ####Dispatcher Service Chief: VIVIAN PANTOJA ([phone])[facility]ENTERB[facility] FOX R[facility]TM[facility] (SWRLAB)[address] [place] [address] NRBC 0.0 /100 WBCs Normal 0.0-2.0 [facility] Comment on above: Performed By: #### L [id number], [id number] ####Dispatcher Service Chief: VIVIAN PANTOJA ([phone])[facility]ENTER[facility] FOX RITTM[facility] (SWRLAB)[address] [place] [address] Platelet mean volume (Bld) [Entitic vol] 12.9 fL High 9.0-12.7 [facility] Comment on above: Performed By: #### L [id number], [id number] ####Dispatcher Service Chief: VIVIAN PANTOJA ([phone])[facility] FOX RITTMAN (SWRLAB)[address] [place] [address] [place] Platelets (Bld) [#/Vol] 92 10*3/uL Low 140-440 [facility] Comment on above: Performed By: #### L [id number], [id number] ####Dispatcher Service Chief: VIVIAN PANTOJA ([phone])[facility]ENTERB[facility] FOX [facility]ITTM[facility] (SWRLAB)[address] RBC (Bld) [#/Vol] 4.04 10*6/uL Normal 3.80-5.20 [facility] Comment on above: Performed By: #### L [id number], [id number] ####Dispatcher Service Chief: VIVIAN PANTOJA ([phone])[facility]ENTERB[facility] FOX RITTMAN (SWRLAB)[address] [place] [address] [place] WBC (Bld) [#/Vol] 18.5 10*3/uL High 3.6-10.7 [facility] Comment on above: Performed By: #### L [id number], [id number] ####Dispatcher Service Chief: VIVIAN PANTOJA ([id number])[facility]ENTERB[facility] FOX [facility]AN (SWRLAB)[address] [place] [address] COMPLETE URINALYSISon 2023 BACTERIA (#/HPF) IN URINE Few Abnormal Negative [facility] Comment on above: Performed By: #### L [id number] ####Dispatcher Service Chief: VIVIAN PANTOJA ([phone])[facility]ENTERB[facility] FOX RITTMAN (SWRLAB)[address] [place] [address] BILIRUBIN, TOTAL PRESENCE IN URINE Negative Normal Negative [facility] Comment on above: Performed By: #### L AB347 ####Dispatcher Service Chief: VIVIAN PANTOJA ([phone])[facility]ENTERB[facility] FOX [facility]IT[facility]AN (SWRLAB)[address] [place] [address] Clarity (U) Clear Normal Clear [facility] Comment on above: Performed By: #### L AB347 ####Dispatcher Service Chief: VIVIAN PANTOJA ([phone])[facility] RUDDY RITTMAN (SWRLAB)[address] [place] [address] Color (U) Yellow Normal Lt. Yellow [facility] Comment on above: Performed By: #### L AB347 ####Dispatcher Service Chief: VIVIAN PANTOJA ([phone])[facility]ENTER[facility] RUDDY RITTMAN (SWRLAB)[address] GLUCOSE (MG/DL) IN URINE Normal Normal Normal (<70) [facility] Comment on above: Performed By: #### L AB347 ####Dispatcher Service Chief: VIVIAN PANTOJA ([phone])[facility] RUDDY RITTMAN (SWRLAB)[address] [place] [address] HEMOGLOBIN PRESENCE IN URINE 0.03 mg/dL Abnormal Negative [facility] Comment on above: Performed By: #### L AB347 ####Dispatcher Service Chief: VIVIAN PANTOJA ([phone])[facility] RUDDY RITTMAN (SWRLAB)[address] [place] [address] HYALINE CASTS (#/LPF) IN URINE SEDIMENT BY MICROSCOPY 0-2 Abnormal Negative [facility] Comment on above: Performed By: #### L AB347 ####Dispatcher Service Chief: VIVIAN PANTOJA ([phone])[facility] CENTERBessy MARTINEZRUDDY RITTMAN (SWRLAB)[address] [place] [address] Ketones Ql (U) Negative Normal Negative [facility] Comment on above: Performed By: #### L AB347 ####Dispatcher Service Chief: VIVIAN PANTOJA ([phone])[facility] RUDDY RITTMAN (SWRLAB)[address] [place] [address] LEUKOCYTE ESTERASE PRESENCE IN URINE BY TEST STRIP Negative Normal Negative [facility] Comment on above: Performed By: #### L AB347 ####Dispatcher Service Chief: VIVIAN PANTOJA ([phone])[facility]ENTERA RUDDY RITTMAN (SWRLAB)[facility] [place] [address] [place] NITRITE PRESENCE IN URINE Negative Normal Negative [facility] Comment on above: Performed By: #### L AB347 ####Dispatcher Service Chief: VIVIAN PANTOJA ([phone])[facility]ENTERB[facility] FOX RITTMAN (SWRLAB)[address] pH (U) 6.0 [pH] Normal 5.0-8.0 [facility] Comment on above: Performed By: #### L AB347 ####Dispatcher Service Chief: VIVIAN PANTOJA ([phone])[facility]ENTERB[facility] FOX RITTMAN (SWRLAB)[address] [place] [address] Protein (U) [Mass/Vol] 300 mg/dL Abnormal Negative [facility] Comment on above: Performed By: #### L AB347 ####Dispatcher Service Chief: VIVIAN PANTOJA ([phone])[facility]ENTERB[facility] FOX RITTMAN (SWRLAB)[address] [place] [address] [place] RBC (#/HPF) IN URINE SEDIMENT 0-2 Normal 0-2 [facility] Comment on above: Performed By: #### L AB347 ####Dispatcher Service Chief: VIVIAN PANTOJA ([id number])[facility]ENTERB[facility] FOX R[facility] (SWRLAB)[address] [place] [address] Specific gravity (U) [Rel density] 1.032 High 1.005-1.030 [facility] Comment on above: Performed By: #### L AB347 ####Dispatcher Service Chief: VIVIAN PANTOJA ([phone])[facility]ENTERB[facility] FOX RIT[facility] (SWRLAB)[address] [place] [address] [place] Specimen volume (U) 12 mL Normal [facility] Comment on above: Performed By: #### L [id number] ####Dispatcher Service Chief: VIVIAN PANTOJA ([id number])[facility]ENTERB[facility] FOX RIT[facility] (SWRLAB)[address] [place] [address] [place] SQUAMOUS EPITHELIAL CELLS (#/HPF) IN URINE SEDIMENT 3-5 Normal 3-5 [facility] Comment on above: Performed By: #### L [id number] ####Dispatcher Service Chief: VIVIAN PANTOJA ([phone])[facility]ENTERB[facility] FOX RIT[facility]AN (SWRLAB)[address] UROBILINOGEN (MG/DL) IN URINE 4 mg/dL Abnormal Normal (0-1) [facility] Comment on above: Performed By: #### L AB347 ####Dispatcher Service Chief: VIVIAN PANTOJA ([phone])[facility]ENTER[facility] FOX RITTMAN (SWRLAB)[address] WBC (LEUKOCYTE) (#/HPF) IN URINE SEDIMENT 3-5 Normal 0-5 [facility] Comment on above: Performed By: #### L AB347 ####Dispatcher Service Chief: VIVIAN PANTOJA ([phone])[facility]ENTERB[facility] FOX RITTMAN (SWRLAB)[address] COMPREHENSIVE METABOLIC PANE Amaury 02-11-2024 Albumin [Mass/Vol] 4.2 g/dL Normal 3.5-5.0 [facility] Comment on above: Performed By: #### L AB17 ####Dispatcher Service Chief: VIVIAN PANTOJA ([id number])[facility]ENTERB[facility] FOX RITTMAN (SWRLAB)[address] ALP [Catalytic activity/Vol] 84 U/L Normal 38-126 [facility] Comment on above: Performed By: #### L AB17 ####Dispatcher Service Chief: VIVIAN PANTOJA ([phone])[facility]ENTERBessy MARTINEZRUDDY RITTMAN (SWRLAB)[address] [place] [address] [place] ALT [Catalytic activity/Vol] 20 U/L Normal 0-34 [facility] Comment on above: Performed By: #### L AB17 ####Dispatcher Service Chief: VIVIAN PANTOJA ([phone])[facility]ENTERBessy MARTINEZRUDDY RITTMAN (SWRLAB)[address] Anion gap [Moles/Vol] 7 mmol/L Normal 3-13 [facility] Comment on above: Performed By: #### L AB17 ####Dispatcher Service Chief: VIVIAN PANTOJA ([phone])[facility]ENTERB[facility] FOX RITTMAN (SWRLAB)[address] [place] [address] [place] AST [Catalytic activity/Vol] 19 U/L Normal 15-46 [facility] Comment on above: Performed By: #### L AB17 ####Dispatcher Service Chief: VIVIAN PANTOJA ([phone])[facility]ENTERB[facility] FOX RITTMAN (SWRLAB)[address] Bilirubin [Mass/Vol] 1.9 mg/dL High 0.2-1.3 [facility] Comment on above: Performed By: #### L AB17 ####Dispatcher Service Chief: VIVIAN PANTOJA ([phone])[facility]ENTERB[facility] FOX RITTMAN (SWRLAB)[address] [place] [address] [place] Calcium [Mass/Vol] 9.8 mg/dL Normal 8.4-10.4 [facility] Comment on above: Performed By: #### L AB17 ####Dispatcher Service Chief: VIVIAN PANTOJA ([phone])[facility]ENTERB[facility] FOX RITTMAN (SWRLAB)[address] [place] [address] [place] Chloride [Moles/Vol] 101 mmol/L Normal 98-107 [facility] Comment on above: Performed By: #### L AB17 ####Dispatcher Service Chief: VIVIAN PANTOJA ([phone])[facility] FOX RITTMAN (SWRLAB)[address] [place] [address] [place] CO2 [Moles/Vol] 30 mmol/L Normal 22-30 [facility] Comment on above: Performed By: #### L AB17 ####Dispatcher Service Chief: VIVIAN PANTOJA ([phone])[facility]ENTERB[facility] FOX RITTMAN (SWRLAB)[address] [place] [address] [place] Creatinine [Mass/Vol] 0.76 mg/dL Normal 0.52-1.04 [facility] Comment on above: Performed By: #### L AB17 ####Dispatcher Service Chief: VIVIAN PANTOJA ([phone])[facility]ENTERB[facility] FOX RITTMAN (SWRLAB)[address] [place] [address] GLOMERULAR FILTRATION RATE ML/MIN/1.73 SQ M.PREDICTED 83.4 mL/min/1.73m*2 Normal >60.0 [facility] Comment on above: Result Comment: Calc ulation based on the Chronic Kidney Disease Epidemiology Collaboration (CKD-EPI) equation refit without adjustment for race Performed By: #### L AB17 ####Dispatcher Service Chief: VIVIAN PANTOJA ([id number])[facility]ENTERB[facility] FOX RITTMAN (SWRLAB)[address] [place] [address] Glucose [Mass/Vol] 116 mg/dL High 70-100 [facility] Comment on above: Performed By: #### L AB17 ####Dispatcher Service Chief: VIVIAN PANTOJA ([id number])[facility]ENTERB[facility] FOX RITTMAN (SWRLAB)[address] [place] [address] [place] Potassium [Moles/Vol] 4.5 mmol/L Normal 3.5-5.1 [facility] Comment on above: Performed By: #### L AB17 ####Dispatcher Service Chief: VIVIAN PANTOJA ([id number])[facility]ENTERB[facility] FOX RITTMAN (SWRLAB)[address] [place] [address] [place] Protein [Mass/Vol] 6.5 g/dL Normal 6.3-8.2 [facility] Comment on above: Performed By: #### L AB17 ####Dispatcher Service Chief: VIVIAN PANTOJA ([phone])[facility]ENTER[facility] FOX RITTMAN (SWRLAB)[address] [place] [address] [place] Sodium [Moles/Vol] 139 mmol/L Normal 135-145 [facility] Comment on above: Performed By: #### L AB17 ####Dispatcher Service Chief: VIVIAN PANTOJA ([id number])[facility]ENTER[facility] FOX RITTMAN (SWRLAB)[address] Urea nitrogen [Mass/Vol] 20 mg/dL High 7-17 [facility] Comment on above: Performed By: #### L AB17 ####Dispatcher Service Chief: VIVIAN PANTOJA ([phone])[facility] RITPBAN (SWRLAB)[address] ABDOMEN PELVIS WO IV CONT RASTon 02-11-2024 CT ABDOMEN PELVIS WO IV CONTRAST Normal [facility] CT Abdomen and Pelvis WO con traston 02-11-2024 1. Possible cellulitis anterior abdominal wall subcutaneous fat. 2. Moderate cardiomegaly with small pericardial effusion. Small pleural effusion on the RIGHT. Small amount of ascites. 3. LEFT adrenal mass.. Given size, consider resection if there is no history of cancer. If there is a cancer history, consider biopsy or PET/CT. 4. Mild hepatosplenomegaly. 5. Multiple gallstones and distended gallbladder. Report Dictated on Electronically Signed By: Greyson Banks MD Electronically Signed Date/Time: 02/11/2024 9:39 PM [facility] Patient Name: ALTA MOYA : 1950 Exam Date/Time: 02/11/2024 21:26 Procedure: CT ABDOMEN PELVIS WO IV CONTRAST Ordering Provider: DAWN DUSTIN Reason For Exam: FLANK PAIN CT ABDOMEN AND PELVIS WITHOUT CONTRAST CLINICAL INDICATION: FLANK PAIN TECHNIQUE: CT scan of the abdomen and pelvis without IV/oral contrast. Multiplanar reformations. Dose reduction was employed with automated exposure control. COMPARISON: None FINDINGS: Solid organ evaluation limited from lack of IV contrast. Geographic areas of decreased attenuation throughout the lung bases may relate to air trapping. Small RIGHT pleural effusion. Small pericardial effusion. Moderate cardiac enlargement. Small amount of ascites in the upper abdomen. Multiple gallstones. Gallbladder is distended. No obvious inflammation seen. No biliary tree dilatation or focal hepatic lesion. Mildly enlarged spleen. Moderate hepatomegaly. Tiny stones lower pole bilateral kidneys. No hydronephrosis. Normal RIGHT adrenal gland. LEFT adrenal nodule measures about 4 x 2.3 cm, with density of 41 Hounsfield units. Pancreas shows no significant abnormality. Abdominal aorta is nonaneurysmal. No bowel obstruction. Appendix not seen with certainty. No acute inflammatory process. No ureteral calculus. There are some edema in the anterior abdominal wall subcutaneous fat which may relate to cellulitis. Upper endplate Schmorl's node L3 probably chronic. Lower endplate L1 mild compression, probably chronic. [facility] Greyson Banks MD - 02/11/2024 Patient Name: ALTA BAKER : 1950 Exam Date/Time: 02/11/2024 21:26 Procedure: CT ABDOMEN PELVIS WO IV CONTRAST Ordering Provider: DAWN DUSTIN Reason For Exam: FLANK PAIN CT ABDOMEN AND PELVIS WITHOUT CONTRAST CLINICAL INDICATION: FLANK PAIN TECHNIQUE: CT scan of the abdomen and pelvis without IV/oral contrast. Multiplanar reformations. Dose reduction was employed with automated exposure control. COMPARISON: None FINDINGS: Solid organ evaluation limited from lack of IV contrast. Geographic areas of decreased attenuation throughout the lung bases may relate to air trapping. Small RIGHT pleural effusion. Small pericardial effusion. Moderate cardiac enlargement. Small amount of ascites in the upper abdomen. Multiple gallstones. Gallbladder is distended. No obvious inflammation seen. No biliary tree dilatation or focal hepatic lesion. Mildly enlarged spleen. Moderate hepatomegaly. Tiny stones lower pole bilateral kidneys. No hydronephrosis. Normal RIGHT adrenal gland. LEFT adrenal nodule measures about 4 x 2.3 cm, with density of 41 Hounsfield units. Pancreas shows no significant abnormality. Abdominal aorta is nonaneurysmal. No bowel obstruction. Appendix not seen with certainty. No acute inflammatory process. No ureteral calculus. There are some edema in the anterior abdominal wall subcutaneous fat which may relate to cellulitis. Upper endplate Schmorl's node L3 probably chronic. Lower endplate L1 mild compression, probably chronic. IMPRESSION: 1. Possible cellulitis anterior abdominal wall subcutaneous fat. 2. Moderate cardiomegaly with small pericardial effusion. Small pleural effusion on the RIGHT. Small amount of ascites. 3. LEFT adrenal mass.. Given size, consider resection if there is no history of cancer. If there is a cancer history, consider biopsy or PET/CT. 4. Mild hepatosplenomegaly. 5. Multiple gallstones and distended gallbladder. Report Dictated on Electronically Signed By: Greyson Banks MD Electronically Signed Date/Time: 02/11/2024 9:39 PM EST [facility] Radiology Study observation (narrative) [facility] CT Abdomen and Pelvis WO con trastOrdered By: Greyson Banks on 02-11-2024 [facility] Work Phone: Comprehensive metabolic 1998 panelon 02-11-2024 Albumin [Mass/Vol] 4.2 g/dL 3.5 - 5.0 g/dL [facility] ALP [Catalytic activity/Vol] 84 U/L 38 - 126 U/L [facility] ALT [Catalytic activity/Vol] 20 U/L 0 - 34 U/L [facility] Anion gap [Moles/Vol] 7 mmol/L 3 - 13 mmol/L [facility] AST [Catalytic activity/Vol] 19 U/L 15 - 46 U/L [facility] Bilirubin [Mass/Vol] 1.9 mg/dL High 0.2 - 1 .3 mg/dL [facility] Calcium [Mass/Vol] 9.8 mg/dL 8.4 - 10. 4 mg/dL [facility] Chloride [Moles/Vol] 101 mmol/L 98 - 10 7 mmol/L [facility] CO2 [Moles/Vol] 30 mmol/L 22 - 30 mmol/L [facility] Creatinine [Mass/Vol] 0.76 mg/dL 0.52 - 1.04 mg/dL [facility] GFR/1.73 sq M.predicted (S/P/Bld) [Vol rate/Area] 83.4 mL/min - PINF [facility] Comment on above: Calculation based on the Chronic Kidney Disease Epidemiology Collaboration (CKD-EPI) equation refit without adjustment for race Glucose [Mass/Vol] 116 mg/dL High 70 - 100 mg/dL [facility] Interpretation and review of laboratory results Abnormal [facility] Potassium [Moles/Vol] 4.5 mmol/L 3.5 - 5.1 mmol/L [facility] Protein [Mass/Vol] 6.5 g/dL 6.3 - 8.2 g/dL [facility] Sodium [Moles/Vol] 139 mmol/L 135 - 145 mmol/L [facility] Urea nitrogen [Mass/Vol] 20 mg/dL High 7 - 17 mg/dL [facility] ED Nursing Noteon 02-11-2024 ED Nursing Note Normal [facility] ED Provider Noteon ED Provider Note Normal [facility] MANUAL DIFFERENTIALon 2023 BAND NEUTROPHILS TOTAL PER COUNTED LEUKOCYTES BY MANUAL COUNT 1 Normal [facility] Comment on above: Performed By: #### Manpreet [id number], [id number] ####Dispatcher Service Chief: VIVIAN PANTOJA ([phone])[facility] (SWRL[facility])[address] [place] [address] [place] BANDS 0.2 10*3/uL High <=0.0 [facility] Comment on above: Performed By: #### Manpreet LEGGETT, [id number] ####Dispatcher Service Chief: VIVIAN PANTOJA ([phone])[facility] ([facility])[address] [place] [address] [place] BASOPHILS (10*3/UL) IN BLOOD BY MANUAL COUNT 0.0 10*3/uL Normal 0.0-0.2 [facility] Comment on above: Performed By: #### Manpreet LEGGETT, [id number] ####Dispatcher Service Chief: VIVIAN PANTOJA ([phone])[facility] [place] ([facility])[address] [place] [address] [place] BASOPHILS TOTAL PER COUNTED LEUKOCYTES BY MANUAL COUNT 0 Normal [facility] Comment on above: Performed By: #### Manpreet [id number], [id number] ####Dispatcher Service Chief: VIVAIN PANTOJA ([phone])[facility] [place] ([place])[address] [place] [address] [place] BASOPHILS/100 LEUKOCYTES IN BLOOD BY MANUAL COUNT 0 % Normal 0-2 [facility] Comment on above: Performed By: #### Manpreet [id number], [id number] ####Dispatcher Service Chief: VIVIAN PANTOJA ([phone])[facility] [place] ([place])[address] [place] [address] [place] CELLS COUNTED TOTAL (#) IN BLOOD 100 Normal [facility] Comment on above: Performed By: #### L [id number], [id number] ####Dispatcher Service Chief: VIVIAN PANTOJA ([phone])LJA [address] (SWRLAB)[address] [place] [address] [place] DIFFERENTIAL METHOD Manual differential performed Normal [facility] Comment on above: Performed By: #### L [id number], [id number] ####Dispatcher Service Chief: VIVIAN PANTOJA ([phone])[facility] [place] ([place])[address] [place] [address] [place] EOSINOPHILS (10*3/UL) IN BLOOD BY MANUAL COUNT 0.0 10*3/uL Normal 0.0-0.5 [facility] Comment on above: Performed By: #### L [id number], [id number] ####Dispatcher Service Chief: VIVIAN PANTOJA ([phone])[facility] [place] ([place])[address] [place] [address] [place] EOSINOPHILS TOTAL PER COUNTED LEUKOCYTES BY MANUAL COUNT 0 Normal 0-1 [facility] Comment on above: Performed By: #### Manpreet [id number], [id number] ####Dispatcher Service Chief: VIVIAN PANTOJA ([phone])WISAM MARTINEZWORTH RITTMAN (SWRLAB)[address] [place] [address] [place] EOSINOPHILS/100 LEUKOCYTES IN BLOOD BY MANUAL COUNT 0 % Normal 0-6 [facility] Comment on above: Performed By: #### L [id number], [id number] ####Dispatcher Service Chief: VIVIAN PANTOJA ([phone])[facility] [place] ([place])[address] [place] [address] [place] LEUKOCYTE MORPHOLOGY FINDING IN BLOOD Normal Normal [facility] Comment on above: Performed By: #### L [id number], [id number] ####Dispatcher Service Chief: VIVIAN PANTOJA ([phone])[facility] [place] ([place])[address] [place] [address] [place] LEUKOCYTES (10*3/UL) NUCLEATED ERYTHROCYTE ADJUST 18.5 10*3/uL High 3.6-10.7 [facility] Comment on above: Performed By: #### L [id number], [id number] ####Dispatcher Service Chief: VIVIAN PANTOJA ([phone])[facility] [place] (SWRL[place])[address] [place] [address] [place] LYMPHOCYTES (10*3/UL) IN BLOOD BY MANUAL COUNT 0.9 10*3/uL Low 1.0-4.3 [facility] Comment on above: Performed By: #### L [id number], [id number] ####Dispatcher Service Chief: VIVIAN PANTOJA ([phone])[facility] [place] (SWRL[place])[address] [place] [address] [place] LYMPHOCYTES TOTAL PER COUNTED LEUKOCYTES BY MANUAL COUNT 5 Normal [facility] Comment on above: Performed By: #### Manpreet [id number], [id number] ####Dispatcher Service Chief: VIVIAN PANTOJA ([phone])[facility] [place] (SWRL[place])[address] [place] [address] [place] LYMPHOCYTES/100 LEUKOCYTES IN BLOOD BY MANUAL COUNT 5 % Low 15-45 [facility] Comment on above: Performed By: #### L [id number], [id number] ####Dispatcher Service Chief: VIVIAN PANTOJA ([id number])[facility]ENTERBessy MARTINEZRUDDY RITTMAN (SWRLAB)[address] [place] [address] [place] MONOCYTES (10*3/UL) IN BLOOD BY MANUAL COUNT 6.5 10*3/uL High 0.0-0.9 [facility] Comment on above: Performed By: #### L [id number], [id number] ####Dispatcher Service Chief: VIVIAN PANTOJA ([phone])[facility] [place] (SWRL[place])[address] [place] [address] [place] MONOCYTES TOTAL PER COUNTED LEUKOCYTES BY MANUAL COUNT 35 Normal [facility] Comment on above: Performed By: #### L [id number], [id number] ####Dispatcher Service Chief: VIVIAN PANTOJA ([phone])[facility] [address] (SWRLAB)[address] [place] [address] [place] MONOCYTES/100 LEUKOCYTES IN BLOOD BY MANUAL COUNT 35 % High 5-13 [facility] Comment on above: Performed By: #### L [id number], [id number] ####Dispatcher Service Chief: VIVIAN PANTOJA ([phone])[facility] [place] ([place])[address] [place] [address] [place] NEUTROPHILS (SEGS+BANDS) (10*3/UL) BY MANUAL COUNT 11.1 10*3/uL High 1.8-7.0 [facility] Comment on above: Performed By: #### L [id number], [id number] ####Dispatcher Service Chief: VIVIAN PANTOJA ([phone])[facility] [place] ([place])[address] [place] [address] [place] NEUTROPHILS BAND FORM/100 LEUKOCYTES IN BLOOD BY MANUAL COUNT 1 % High <=0 [facility] Comment on above: Performed By: #### L [id number], [id number] ####Dispatcher Service Chief: VIVIAN PANTOJA ([phone])[facility] [place] ([place])[address] [place] [address] [place] NEUTROPHILS TOTAL PER COUNTED LEUKOCYTES BY MANUAL COUNT 59 Normal [facility] Comment on above: Performed By: #### L [id number], [id number] ####Dispatcher Service Chief: VIVIAN PANTOJA ([phone])[facility] [place] ([place])[address] [place] [address] [place] PLATELET MORPHOLOGY IN BLOOD Normal Normal [facility] Comment on above: Performed By: #### L [id number], [id number] ####Dispatcher Service Chief: VIVIAN PANTOJA ([phone])[facility] [place] ([place])[address] [place] [address] [place] RBC MORPHOLOGY IN BLOOD Normal Normal [facility] Comment on above: Performed By: #### L [id number], [id number] ####Dispatcher Service Chief: VIVIAN PANTOJA ([id number])[facility] [address] (SWRL[address] [place] [address] [place] SEGEMENTED NEUTROPHILS/100 LEUKOCYTES BY MANUAL COUNT 59 % Normal 38-82 [facility] Comment on above: Performed By: #### L [id number], [id number] ####Dispatcher Service Chief: VIVIAN PANTOJA ([id number])[facility] [place] [place] (SWRL[place])[address] [place] [address] SEGMENTED NEUTROPHILS (10*3/UL)IN BLOOD BY MANUAL COUNT 11.1 10*3/uL High 1.8-7.5 [facility] Comment on above: Performed By: #### L [id number], [id number] ####Dispatcher Service Chief: VIVIAN PANTOJA ([phone])[facility] [place] [place] (SWRL[place])[address] [place] [address] Manual differential performe d Ql (Bld)on 02-11-2024 Band form neutrophils (Bld) [#/Vol] 0.2 10*3/uL High NINF - 0.0 10*3/uL [facility] Band form neutrophils/100 WBC (Bld) 1 % High NINF - 0 % [facility] Bands Manual 1 [facility] Basophils (Bld) [#/Vol] 0 10*3/uL 0.0 - 0.2 10*3/uL [facility] Basophils Manual 0 [facility] Basophils/100 WBC (Bld) 0 % 0 - 2 % [facility] Cells Counted Total (Bld) [#] 100 {cells} [facility] Differential Method Manual differential performed [facility] Eosinophils (Bld) [#/Vol] 0 10*3/uL 0.0 - 0.5 10*3/uL [facility] Eosinophils Manual 0 0 - 1 [facility] Eosinophils/100 WBC (Bld) 0 % 0 - 6 % [facility] Leukocyte morphology finding Nom (Bld) Normal [facility] Lymphocytes (Bld) [#/Vol] 0.9 10*3/uL Low 1.0 - 4.3 10*3/uL [facility] Lymphocytes Manual 5 [facility] Lymphocytes/100 WBC (Bld) 5 % Low 15 - 45 % [facility] Monocytes (Bld) [#/Vol] 6.5 10*3/uL High 0.0 - 0.9 10*3/uL [facility] Monocytes Manual 35 [facility] Monocytes/100 WBC (Bld) 35 % High 5 - 13 % [facility] Neutrophils (Bld) [#/Vol] 11.1 10*3/uL High 1.8 - 7.5 10*3/uL [facility] Neutrophils Manual 59 [facility] Platelet morphology finding Nom (Bld) Normal [facility] RBC morphology finding Nom (Bld) Normal [facility] Segmented neutrophils/100 WBC (Bld) 59 % 38 - 82 % [facility] WBC corrected for nucl RBC (Bld) [#/Vol] 18.5 10*3/uL High 3.6 - 10.7 10*3/uL [facility] No Panel Informationon 02-10 Interpretation and review of laboratory results Abnormal [facility] Urinalysis complete panel (U )Ordered By: Sindy Mcpherson on 02-11-2024 Bacteria LM.HPF (Urine sed) [#/Area] Few Abnormal Negative /HPF [facility] Bilirubin Ql (U) Negative Negative mg/dL [facility] Clarity (U) Clear Clear [facility] Color (U) Yellow Lt. Yellow [facility] Epithelial cells.squamous LM.HPF (Urine sed) [#/Area] 3-5 [facility] Glucose Ql (U) Normal Normal (<70) mg/dL [facility] Hemoglobin Ql (U) 0.03 mg/dL Abnormal Negative [facility] Hyaline casts Auto (Urine sed) [#/Area] 0-2 Abnormal Negative /LPF [facility] Interpretation and review of laboratory results Abnormal [facility] Ketones (U) [Mass/Vol] Negative Negat ute mg/dL [facility] Leukocyte esterase Test strip Ql (U) Negative Negative Ghada/uL [facility] Nitrite Ql (U) Negative Negative [facility] pH (U) 6.0 [pH] 5.0 - 8.0 pH [facility] Protein (U) [Mass/Vol] 300 mg/dL Abnormal Negative Self [facility] RBC LM.HPF (Urine sed) [#/Area] 0-2 [facility] Specific gravity (U) [Rel density] 1.032 High 1.005 - 1.030 [facility] Urobilinogen (U) [Mass/Vol] 4 mg/dL Abnormal Normal (0-1) [facility] Volume, Urine 12 mL [facility] WBC LM.HPF (Urine sed) [#/Area] 3-5 [facility] 36on 02-09-2024 36 Pt aware. Normal [facility] 36 Normal [facility] 36on 02-08-2024 36 Normal [facility] 36 Attempted to return call. No answer. Curt Last PA-C has openings next week. Normal [facility] 36on 02-07-2024 36 Normal [facility] Progress Noteon 02-07-2024 Progress Note Normal [facility] CNOVon 02-04-2024 CNOV Office Visit (UCTR ) ----- ALTA BAKER ([id number]) 1950 F Date Time Provider Department 02/04/24 7:15 PM PAO ELIAS [facility] During your visit today, we recorded the following information about you: Temperature Pulse Respiration Blood pressure 97.7 degrees 88/minute 24/minute 178/86 Weight 116.6 kg Pao Elias APRN.DESKTOP ENGINEER 02/04/2024 7:40 PM Signed Pain Subjective Came in with complaints of lower right back pain. Patient says it does radiate down the leg a little bit at times but not all the time. Patient denies any injuries thinks she turned wrong a couple weeks ago. Patient says is not getting any better and she has tried zyos-zge-gsughnf medication ice and heat. Patient says it is very uncomfortable and she is not able to sleep. The history is provided by the patient. No sampler ovens was used. Review of Systems Constitutional: Negative. Skin: Negative. Objective Physical Exam Constitutional: Appearance: Normal appearance. Pulmonary: Effort: Pulmonary effort is normal. Skin: Comments: Patient says the pain is in the area marked above. Neurological: Mental Status: She is alert. No past medical history on file. No past surgical history on file. ALLERGIES Oxycodone, Oibgscu-Dye-Xzt Reductase Inhibitors, and Tetanus And Diphtheria Toxoids MEDICATIONS apixaban (ELIQUIS) 5 mg tab(s) Take by mouth. albuterol (PROVENTIL) 2.5 mg /3 mL (0.083 %) nebulizer solution 2.5 mg every 6 hours as needed. albuterol HFA (PROVENTIL HFA, VENTOLIN HFA) 90 mcg/actuation inhaler INHALE TWO PUFFS BY MOUTH EVERY 4 HOURS NEEDED FOR WHEEZING OR FOR SHORTNESS OF BREATH (BULK) acetaminophen (TYLENOL) 325 mg tablet Take 650 mg by mouth. atorvastatin (LIPITOR) 10 mg tablet Take 10 mg by mouth. furosemide (LASIX) 40 mg tablet Take 40 mg by mouth. lisinopril (ZESTRIL, PRINIVIL) 10 mg tablet Take 20 mg by mouth once daily. metoprolol tartrate, short acting, (LOPRESSOR) 100 mg tablet Take 200 mg by mouth two times a day. potassium chloride ER (K-DUR, KLOR-CON) 20 mEq tablet Take 20 mEq by mouth. sertraline (ZOLOFT) 25 mg tablet Take 25 mg by mouth. clotrimazole-betamethason e (LOTRISONE) cream Apply topically 2 times daily to perirectal area prn digoxin (LANOXIN) 125 mcg (0.125 mg) tablet Take 125 mcg by mouth. nystatin (MYCOSTATIN) cream Apply topically 2 times daily to breast area nystatin (MYCOSTATIN) powder Indications: as directed under breasts Apply topically 4 times daily. warfarin (COUMADIN) 3 mg tablet Take 3 mg by mouth. (Patient not taking: Reported on 12/29/2022) guaiFENesin (MUCINEX) 600 mg 12 hr tablet Take 2 tablets by mouth twice daily. No family history on file. Social History Tobacco Use Smoking status: Never Smokeless tobacco: Never ASSESSMENT/PLAN: 1. Pain - ICD9: 780.96, ICD10: R52 With patient about imaging not being here. And how I would need an image to properly treat. Patient was offered to come back in the morning get imaging and medication prescribed the patient would like relief little sooner. Patient is eriberto go to the ER for evaluation. Daughter will take her. Pao Elias APRN.DESKTOP ENGINEER Allergies As of Date: 02/04/2024 Noted Allergy Reaction OXYCODONE 07/27/2017 1 - Mental Status Change Comments: Did not like the feeling [id number] REDUCTASE INHIBIT*07/07/2016 17 - Myalgia TETANUS AND DIPHTHERIA TOXOIDS 01/31/2019 7 - Swelling Date Reviewed: 02/04/2024 Reviewed by: Paola Collazo MA - Fully Assessed Reason for Visit: Low Back Pain [126] Cmt: R low back pain x1 week Primary Visit Diagnosis:Pain [R52] Prescriptions as of 02/04/2024 - apixaban (ELIQUIS) 5 mg tab(s) Take by mouth. - albuterol (PROVENTIL) 2.5 mg /3 mL (0.083 %) nebulizer solution 2.5 mg every 6 hours as needed. - albuterol HFA (PROVENTIL HFA, VENTOLIN HFA) 90 mcg/actuation inhaler INHALE TWO PUFFS BY MOUTH EVERY 4 HOURS NEEDED FOR WHEEZING OR FOR SHORTNESS OF BREATH (BULK) - acetaminophen (TYLENOL) 325 mg tablet Take 650 mg by mouth. - atorvastatin (LIPITOR) 10 mg tablet Take 10 mg by mouth. - clotrimazole-betamethason e (LOTRISONE) cream Apply topically 2 times daily to perirectal area prn - digoxin (LANOXIN) 125 mcg (0.125 mg) tablet Take 125 mcg by mouth. - furosemide (LASIX) 40 mg tablet Take 40 mg by mouth. - lisinopril (ZESTRIL, PRINIVIL) 10 mg tablet Take 20 mg by mouth once daily. - metoprolol tartrate, short acting, (LOPRESSOR) 100 mg tablet Take 200 mg by mouth two times a day. - nystatin (MYCOSTATIN) cream Apply topically 2 times daily to breast area - nystatin (MYCOSTATIN) powder Indications: as directed under breasts Apply topically 4 times daily. - potassium chloride ER (K-DUR, KLOR-CON) 20 mEq tablet Take 20 mEq by mouth. - sertraline (ZOLOFT) 25 mg tablet Take 25 mg by mouth. - warfarin (COUMADIN) 3 mg tabl (more content not included)... Normal [facility] ED Nursing Noteon 02-04-2024 ED Nursing Note Normal [facility] ED Provider Noteon ED Provider Note Normal [facility] XR Lumbar spine 2 or 3 Views on 02-04-2024 FINDINGS AND IMPRESS ION: The lumbar vertebral body heights and disc spaces appear maintained without fracture. There is multilevel endplate spurring. Atherosclerotic calcifications are present. The SI joints appear maintained although difficult to exclude a hairline fracture on imaging. Atherosclerotic calcifications are present. Report Dictated on Electronically Signed By: Selma Azevedo MD Electronically Signed Date/Time: 02/04/2024 9:41 PM EST [facility] Patient Name: ALTA MOYA : 1950 Exam Date/Time: 02/04/2024 21:25 Procedure: XR LUMBAR SPINE 2-3 VIEWS Ordering Provider: MALDONADO EMILIE Reason For Exam: SI joint pain, eval for fracture INDICATION: 73-year-old female; SI joint pain; evaluate for fracture. VIEWS: Lumbar spine AP and lateral and lumbosacral lateral-3 images COMPARISON: None. [facility] Selma Azevedo MD - 02/04/2024 Patient Name: ALTA BAKER : 1950 Exam Date/Time: 02/04/2024 21:25 Procedure: XR LUMBAR SPINE 2-3 VIEWS Ordering Provider: MALDONADO EMILIE Reason For Exam: SI joint pain, eval for fracture INDICATION: 73-year-old female; SI joint pain; evaluate for fracture. VIEWS: Lumbar spine AP and lateral and lumbosacral lateral-3 images COMPARISON: None. IMPRESSION: FINDINGS AND IMPRESSION: The lumbar vertebral body heights and disc spaces appear maintained without fracture. There is multilevel endplate spurring. Atherosclerotic calcifications are present. The SI joints appear maintained although difficult to exclude a hairline fracture on imaging. Atherosclerotic calcifications are present. Report Dictated on Electronically Signed By: Selma Azevedo MD Electronically Signed Date/Time: 02/04/2024 9:41 PM EST [facility] Radiology Study observation (narrative) [facility] XR Lumbar spine 2 or 3 Views Ordered By: Selma Azevedo on 02-04-2024 [facility] Work Phone: XR Sacrum and Coccyx 2 Views on 02-04-2024 Patient Name: ALTA MOYA : 1950 Exam Date/Time: 02/04/2024 21:26 Procedure: XR SACRUM COCCYX 2+ VIEWS Ordering Provider: MALDONADO EMILIE Reason For Exam: SI joint pain, eval for fracture INDICATION: SI joint pain. VIEWS: AP sacrum, AP coccyx, lateral sacrum-3 images COMPARISON: None. [facility] Selma Azevedo MD - 02/04/2024 Patient Name: ALTA BAKER : 1950 Exam Date/Time: 02/04/2024 21:26 Procedure: XR SACRUM COCCYX 2+ VIEWS Ordering Provider: MALDONADO EMILIE Reason For Exam: SI joint pain, eval for fracture INDICATION: SI joint pain. VIEWS: AP sacrum, AP coccyx, lateral sacrum-3 images COMPARISON: None. IMPRESSION: FINDINGS AND IMPRESSION: The SI joints appear symmetric. Evaluation for a hairline fracture is limited on imaging modality. Report Dictated on Electronically Signed By: Selma Azevedo MD Electronically Signed Date/Time: 02/04/2024 9:43 PM EST [facility] Radiology Study observation (narrative) [facility] 36on 01-31-2024 36 Noted Normal [facility] 36 Normal [facility] Progress Noteon 01-25-2024 Progress Note Some degree of white coat HTN, BP at home generally 130's. Controlled. -- metoprolol, lisinopril, lasix Normal [facility] Progress Note Normal [facility] Progress Note Normal [facility] Progress Note Moderate pulmonary regurgitation likely multifactorial secondary to obesity and CHRISTIANNE -Recommend compliance with CPAP -Continue Lasix Normal [facility] Progress Note Remains on digoxin. Dig level acceptable 03/2023. - continue digoxin - dig level usually drawn by PCP Normal [facility] Progress Note Normal [facility] Progress Note Permanent, nonvalvul ar. [id number] equals 4. Remains rate controlled today. -Continue metoprolol 100 mg p.o. twice daily -Continue digoxin 125 mcg po daily -Continue Eliquis 5 mg p.o. twice daily Normal [facility] Progress Noteon 12-21-2023 Progress Note Normal [facility] 36on 12-17-2023 36 Transferred to [facility] t notes Normal [facility] 36on 12-16-2023 36 Normal [facility] 36 Normal [facility] 36 Normal [facility] XR Chest 2 Viewson Impression: Utva-qj-taonnhez cardiomegaly. No acute pulmonary process. Report Dictated on Electronically Signed By: Esvin Bradley MD Electronically Signed Date/Time: 12/16/2023 10:32 AM EDT [facility] Patient Name: ALTA MOYA : 1950 Exam Date/Time: 12/16/2023 09:58 Procedure: XR CHEST 2 VIEWS Ordering Provider: IBARRA EUGENE Reason For Exam: leukocytosis- s/p covid infx Examination: PA and lateral chest Clinical Indication: leukocytosis- s/p covid infx Comparison: None Findings: Lungs appear normally inflated. Minimal linear subsegmental atelectasis in the right lower lobe. There is no focal consolidation, effusion, or pulmonary edema identified. The heart size is moderately enlarged. Tracheobronchial calcifications are present. Degenerative changes within the shoulders and spine with mild upper thoracic kyphosis.. [facility] Esvin Bradley MD - 12/16/2023 Patient Name: ALTA BAKER : 1950 Exam Date/Time: 12/16/2023 09:58 Procedure: XR CHEST 2 VIEWS Ordering Provider: IBARRA EUGENE Reason For Exam: leukocytosis- s/p covid infx Examination: PA and lateral chest Clinical Indication: leukocytosis- s/p covid infx Comparison: None Findings: Lungs appear normally inflated. Minimal linear subsegmental atelectasis in the right lower lobe. There is no focal consolidation, effusion, or pulmonary edema identified. The heart size is moderately enlarged. Tracheobronchial calcifications are present. Degenerative changes within the shoulders and spine with mild upper thoracic kyphosis.. IMPRESSION: Impression: Twcj-br-wrqwvxfq cardiomegaly. No acute pulmonary process. Report Dictated on Electronically Signed By: Esvin Bradley MD Electronically Signed Date/Time: 12/16/2023 10:32 AM EDT [facility] Radiology Study observation (narrative) [facility] XR Chest 2 ViewsOrdered By: Esvin Bradley on 12-16-2023 [facility] Work Phone: 36on 12-15-2023 36 Placed call to shari gonzalez. Two patient identifers confirmed. Was able to speak to patient. All concerns in message have been addressed. No questions at this time. Call ended [facility] 36 Noted; it appears sh e called their office. Normal [facility] 36 Normal [facility] 36 Daughter returned ca ll, and patient has no active bleeding. She will be contacting PCP today via [facility] [employer]. Normal [facility] 36 Normal [facility] 36 Normal [facility] 36on 12-14-2023 36 Normal [facility] CBC W Auto Differential pane l (Bld)Ordered By: Isaura Lebron on 12-14-2023 Basophils (Bld) [#/Vol] 0.0 10*3/uL 0.0 - 0.2 10*3/uL [facility] Basophils/100 WBC (Bld) 0.1 % 0.0 - 2.0 % [facility] Eosinophils (Bld) [#/Vol] 0.0 10*3/uL 0.0 - 0.5 10*3/uL [facility] Eosinophils/100 WBC (Bld) 0.2 % 0.0 - 6.0 % [facility] Erythrocyte distribution width (RBC) [Ratio] 14.9 % 11.5 - 15.0 % [facility] Hematocrit (Bld) [Volume fraction] 41.4 % 35.0 - 47.0 % [facility] Hemoglobin (Bld) [Mass/Vol] 13.3 g/dL 11.7 - 16.0 g/dL [facility] Immature granulocytes (Bld) [#/Vol] 0.3 10*3/uL High NINF - 0.1 10*3/uL [facility] Immature granulocytes/100 WBC (Bld) 1.4 % 0.0 - 2.0 % [facility] Interpretation and review of laboratory results Abnormal [facility] IPF 21 [facility] Lymphocytes (Bld) [#/Vol] 2.7 10*3/uL 1.0 - 4.3 10*3/uL [facility] Lymphocytes/100 WBC (Bld) 13.3 % Low 15.0 - 45.0 % [facility] MCH (RBC) [Entitic mass] 28.0 pg 26.0 - 34.0 pg [facility] MCHC (RBC) [Mass/Vol] 32.1 % 30.5 - 36.0 % [facility] MCV (RBC) [Entitic vol] 87.2 fL 77.0 - 99.0 fL [facility] Monocytes (Bld) [#/Vol] 6.1 10*3/uL High 0.0 - 0.9 10*3/uL [facility] Monocytes/100 WBC (Bld) 30.2 % High 5.0 - 13.0 % [facility] Neutrophils (Bld) [#/Vol] 11.1 10*3/uL High 1.8 - 7.5 10*3/uL [facility] Neutrophils/100 WBC (Bld) 54.8 % 38.0 - 82.0 % [facility] Nucleated RBC/100 WBC (Bld) [Ratio] 0.0 % [facility] Platelet mean volume (Bld) [Entitic vol] [facility] Comment on above: Instrument unable to calculate MPV. Platelets (Bld) [#/Vol] 77 10*3/uL Low 140 - 440 10*3/uL [facility] RBC (Bld) [#/Vol] 4.75 10*6/uL 3.80 - 5.2 0 10*6/uL [facility] WBC (Bld) [#/Vol] 20.2 10*3/uL High 3.6 - 10.7 10*3/uL [facility] CBC WITH AUTO DIFFERENTIALon 12-14-2023 Basophils (Bld) [#/Vol] 0.0 10*3/uL Normal 0.0-0.2 [facility] Comment on above: Performed By: #### L [id number] ####Dispatcher Service Chief: VIVIAN PATNOJA ([id number])[facility] (SWRL[facility])[address] [place] [address] Basophils/100 WBC (Bld) 0.1 % Normal 0.0-2.0 [facility] Comment on above: Performed By: #### L [id number] ####Dispatcher Service Chief: VIVIAN PANTOJA ([phone])[facility] ([facility])[address] [place] [address] Eosinophils (Bld) [#/Vol] 0.0 10*3/uL Normal 0.0-0.5 [facility] Comment on above: Performed By: #### L [id number] ####Dispatcher Service Chief: VIVIAN PANTOJA ([phone])[facility] [place] [place] ([place])[address] [place] [address] Eosinophils/100 WBC (Bld) 0.2 % Normal 0.0-6.0 [facility] Comment on above: Performed By: #### L [id number] ####Dispatcher Service Chief: VIVIAN PANTOJA ([phone])[facility] ([facility])[address] [place] [address] Erythrocyte distribution width (RBC) [Ratio] 14.9 % Normal 11.5-15.0 [facility] Comment on above: Performed By: #### L [id number] ####Dispatcher Service Chief: VIVIAN PANTOJA ([phone])[facility] [place] ([place]RL[place])[address] Hematocrit (Bld) [Volume fraction] 41.4 % Normal 35.0-47.0 [facility] Comment on above: Performed By: #### L [id number] ####Dispatcher Service Chief: VIVIAN PANTOJA ([phone])[facility]ENTER[facility]ess[facility] [place] [facility] (SWRL[place])[address] [place] [address] Hemoglobin (Bld) [Mass/Vol] 13.3 g/dL Normal 11.7-16.0 [facility] Comment on above: Performed By: #### L [id number] ####Dispatcher Service Chief: VIVIAN PANTOAJ ([phone])[facility] [place] [facility] ([place])[address] [place] [address] IMMATURE GRANS % 1.4 % Normal 0.0-2.0 [facility] Comment on above: Performed By: #### L [id number] ####Dispatcher Service Chief: VIVIAN PANTOJA ([phone])[facility] [place] [facility] ([place])[address] [place] [address] IMMATURE GRANS ABSOLUTE 0.3 10*3/uL High <0.1 [facility] Comment on above: Performed By: #### L [id number] ####Dispatcher Service Chief: VIVIAN PANTOJA ([phone])[facility] [place] ([place])[address] [place] [address] IPF 21 Normal [facility] Comment on above: Performed By: #### L [id number] ####Dispatcher Service Chief: VIVIAN PANTOJA ([phone])[facility]ENTER[facility] [place] (SWRL[place])[address] [place] [address] [place] Lymphocytes (Bld) [#/Vol] 2.7 10*3/uL Normal 1.0-4.3 [facility] Comment on above: Performed By: #### L [id number] ####Dispatcher Service Chief: VIVIAN PANTOJA ([phone])[facility]ENTER[facility] [place] ([place])[address] [place], [place] [address] [place] Lymphocytes/100 WBC (Bld) 13.3 % Low 15.0-45.0 [facility] Comment on above: Performed By: #### L [id number] ####Dispatcher Service Chief: VIVIAN PANTOJA ([phone])[facility] [place] (SWRL[place])[address] [place] [address] MCH (RBC) [Entitic mass] 28.0 pg Normal 26.0-34.0 [facility] Comment on above: Performed By: #### L [id number] ####Dispatcher Service Chief: VIVIAN PANTOJA ([phone])[facility] [place] [facility] ([place])[address] [place] [address] MCHC 32.1 % Normal 30.5-36.0 [facility] Comment on above: Performed By: #### L [id number] ####Dispatcher Service Chief: VIVIAN PANTOJA ([phone])[facility] [place] [facility] ([place])[address] [place] [address] MCV (RBC) [Entitic vol] 87.2 fL Normal 77.0-99.0 [facility] Comment on above: Performed By: #### L [id number] ####Dispatcher Service Chief: VIVIAN PANTOJA ([phone])[facility]ENTER[facility] [place] (SW[place])[address] [place] [address] [place] Monocytes (Bld) [#/Vol] 6.1 10*3/uL High 0.0-0.9 [facility] Comment on above: Performed By: #### L [id number] ####Dispatcher Service Chief: VIVIAN PANTOJA ([phone])[facility]ENTER[facility] [place] ([place])[address] [place] [address] [place] Monocytes/100 WBC (Bld) 30.2 % High 5.0-13.0 [facility] Comment on above: Performed By: #### L [id number] ####Dispatcher Service Chief: VIVIAN PANTOJA ([phone])[facility] [place] ([place])[address] [place] [address] [place] MPV Normal [facility] Comment on above: Result Comment: Inst rument unable to calculate MPV. Performed By: #### L [id number] ####Dispatcher Service Chief: VIVIAN PANTOJA ([phone])[facility]ENTER[facility] [place] ([place])[address] NEUTROPHILS ABSOLUTE 11.1 10*3/uL High 1.8-7.5 [facility] Comment on above: Performed By: #### L [id number] ####Dispatcher Service Chief: VIVIAN PANTOJA ([phone])[facility]ENTERB[facility] [place] (SWRL[place])[address] [place] [address] Neutrophils/100 WBC (Bld) 54.8 % Normal 38.0-82.0 [facility] Comment on above: Performed By: #### L [id number] ####Dispatcher Service Chief: VIVIAN PANTOJA ([phone])[facility] [place] ([place])[address] [place] [address] NRBC 0.0 /100 WBCs Normal 0.0-2.0 [facility] Comment on above: Performed By: #### L [id number] ####Dispatcher Service Chief: VIVIAN PANTOJA ([phone])[facility]ENTER[facility] [place] ([place])[address] [place] [address] [place] Platelets (Bld) [#/Vol] 77 10*3/uL Low 140-440 [facility] Comment on above: Performed By: #### L [id number] ####Dispatcher Service Chief: VIVIAN PANTOJA ([id number])[facility]ENTER[facility] [place] ([place])[address] [place] [address] [place] RBC (Bld) [#/Vol] 4.75 10*6/uL Normal 3.80-5.20 [facility] Comment on above: Performed By: #### L [id number] ####Dispatcher Service Chief: VIVIAN PANTOJA ([phone])[facility] [place] [place] ([place])[address] [place] [address] [place] WBC (Bld) [#/Vol] 20.2 10*3/uL High 3.6-10.7 [facility] Comment on above: Performed By: #### L [id number] ####Dispatcher Service Chief: VIVIAN PANTOJA ([phone])[facility] [place] ([place])[address] COMPLETE URINALYSISon 2023 BACTERIA (#/HPF) IN URINE Negative Normal Negative [facility] Comment on above: Performed By: #### L [id number] ####Dispatcher Service Chief: VIVIAN PANTOJA ([phone])[facility] [place] ([place])[address] [place] [address] [place] BILIRUBIN, TOTAL PRESENCE IN URINE Negative Normal Negative [facility] Comment on above: Performed By: #### L [id number] ####Dispatcher Service Chief: VIVIAN PANTOJA ([id number])[facility] [place] ([place])[address] Clarity (U) Clear Normal Clear [facility] Comment on above: Performed By: #### L [id number] ####Dispatcher Service Chief: VIVIAN PANTOJA ([id number])[facility] [place] ([place])[address] Color (U) Light Yellow Normal Lt. Yellow [facility] Comment on above: Performed By: #### L [id number] ####Dispatcher Service Chief: VIVIAN PANTOJA ([id number])[facility] [place] ([place])[address] GLUCOSE (MG/DL) IN URINE Normal Normal Normal (<70) [facility] Comment on above: Performed By: #### L [id number] ####Dispatcher Service Chief: VIVIAN PANTOJA ([id number])[facility] [place] ([place])[address] HEMOGLOBIN PRESENCE IN URINE 0.2 mg/dL Abnormal Negative [facility] Comment on above: Performed By: #### L [id number] ####Dispatcher Service Chief: VIVIAN PANTOJA ([id number])[facility]ENTERB[facility] [place] (SWRL[place])[address] [place] [address] Ketones Ql (U) Negative Normal Negative [facility] Comment on above: Performed By: #### L [id number] ####Dispatcher Service Chief: VIVIAN PANTOJA ([phone])[facility]ENTERB[facility] [place] ([place])[address] [place] [address] LEUKOCYTE ESTERASE PRESENCE IN URINE BY TEST STRIP Negative Normal Negative [facility] Comment on above: Performed By: #### L [id number] ####Dispatcher Service Chief: VIVIAN PANTOJA ([id number])[facility]ENTERB[facility] [place] ([place])[address] [place] [address] NITRITE PRESENCE IN URINE Negative Normal Negative [facility] Comment on above: Performed By: #### L [id number] ####Dispatcher Service Chief: VIVIAN PANTOJA ([id number])[facility]ENTERB[facility] [place] ([place])[address] [place] [address] pH (U) 7.0 [pH] Normal 5.0-8.0 [facility] Comment on above: Performed By: #### L [id number] ####Dispatcher Service Chief: VIVIAN PANTOJA ([id number])[facility]ENTERB[facility] [place] (SWRL[place])[address] [place] [address] [place] Protein (U) [Mass/Vol] 10 mg/dL Abnormal Negative [facility] Comment on above: Performed By: #### L [id number] ####Dispatcher Service Chief: VIVIAN PANTOJA ([id number])[facility] [place] ([place])[address] [place] [address] [place] RBC (#/HPF) IN URINE SEDIMENT 6-10 Abnormal 0-2 [facility] Comment on above: Performed By: #### L [id number] ####Dispatcher Service Chief: VIVIAN PANTOJA ([phone])[facility]ENTERB[facility] [place] ([place])[address] [place] [address] Specific gravity (U) [Rel density] 1.016 Normal 1.005-1.030 [facility] Comment on above: Performed By: #### L [id number] ####Dispatcher Service Chief: VIVIAN PANTOJA ([phone])[facility]ENTER[facility] [place] ([place])[address] [place] [address] SQUAMOUS EPITHELIAL CELLS (#/HPF) IN URINE SEDIMENT 3-5 Normal 3-5 [facility] Comment on above: Performed By: #### L [id number] ####Dispatcher Service Chief: VIVIAN PANTOJA ([id number])[facility]ENTER[facility] [place] ([place])[address] [place] [address] UROBILINOGEN (MG/DL) IN URINE 2 mg/dL Abnormal Normal (0-1) [facility] Comment on above: Performed By: #### L [id number] ####Dispatcher Service Chief: VIVIAN PNATOJA ([id number])[facility]ENTER[facility] (SW[place])[address] [place] [address] VOLUME OF URINE 8-12 mL Normal [facility] Comment on above: Performed By: #### L [id number] ####Dispatcher Service Chief: VIVIAN PANTOJA ([id number])[facility] [place] ([facility])[address] [place] [address] WBC (LEUKOCYTE) (#/HPF) IN URINE SEDIMENT 3-5 Normal 0-5 [facility] Comment on above: Performed By: #### L [id number] ####Dispatcher Service Chief: VIVIAN PANTOJA ([id number])[facility] ([facility])[address] [place] [address] Urinalysis complete panel (U )on 12-14-2023 Bacteria LM.HPF (Urine sed) [#/Area] Negative Negative /HPF [facility] Bilirubin Ql (U) Negative Negative mg/dL [facility] Clarity (U) Clear Clear [facility] Color (U) Light Yellow Lt. Yellow [facility] Epithelial cells.squamous LM.HPF (Urine sed) [#/Area] 3-5 [facility] Glucose Ql (U) Normal Normal (<70) mg/dL [facility] Hemoglobin Ql (U) 0.2 mg/dL Abnormal Negative [facility] Interpretation and review of laboratory results Abnormal [facility] Ketones (U) [Mass/Vol] Negative Negat ute mg/dL [facility] Leukocyte esterase Test strip Ql (U) Negative Negative Ghada/uL [facility] Nitrite Ql (U) Negative Negative [facility] pH (U) 7.0 [pH] 5.0 - 8.0 pH [facility] Protein (U) [Mass/Vol] 10 mg/dL Abnormal Negative [facility] RBC LM.HPF (Urine sed) [#/Area] 6-10 Abnormal [facility] Specific gravity (U) [Rel density] 1.016 1.005 - 1.030 [facility] Urobilinogen (U) [Mass/Vol] 2 mg/dL Abnormal Normal (0-1) [facility] Volume, Urine 8-12 mL [facility] WBC LM.HPF (Urine sed) [#/Area] 3-5 [facility] 36on 12-13-2023 36 Normal [facility] 36 Normal [facility] 36 [place] [address] Reviewed chart brief ly; appears patient at [place] [facility]; agreed that patient reached out to PCP. Will review records from [place] to see if cardiology f/up is warranted. Normal [place] [address] Noted Normal [place] [address] Received records fro [facility], and e-mailed to nurse for review. Patient was sent to ER. Normal [facility] 36 Normal [place] [address] Normal [facility] Basic Metabolic Profile (BMP )on 12-06-2023 BUN Normal - [facility] Comment on above: Result Comment: Canc elled via OM: Order cancelled - Patient discharged Performed By: #### L 500.2500, L100.0100 #### [facility] [address] [place], [address] BUN/CRE Normal 10-[address] [facility] Comment on above: Result Comment: Canc elled via OM: Order cancelled - Patient discharged Performed By: #### L 500.2500, L100.0100 #### [facility] [address] [place], [address] CA,Total Normal 8.5-10.[address] [facility] Comment on above: Result Comment: Canc elled via OM: Order cancelled - Patient discharged Performed By: #### L 500.2500, L100.0100 #### [facility] [address] [place], [address] CL Normal 98-[address] [facility] Comment on above: Result Comment: Canc elled via OM: Order cancelled - Patient discharged Performed By: #### L 500.2500, L100.0100 #### [facility] [address] [place], [address] CO2 Normal 21.0-32.[address] [facility] Comment on above: Result Comment: Canc elled via OM: Order cancelled - Patient discharged Performed By: #### L 500.2500, L100.0100 #### [facility] [address] [place], [address] CREAT,SERUM Normal 0.55-1.[address] [facility] Comment on above: Result Comment: Canc elled via OM: Order cancelled - Patient discharged Performed By: #### L 500.2500, L100.0100 #### [facility] [address] [place], [address] EST GFR Normal >[address] [facility] Comment on above: Result Comment: Canc elled via OM: Order cancelled - Patient discharged Performed By: #### L 500.2500, L100.0100 #### [facility] [address] [place], [address] EST GFR - AA Normal >[address] [facility] Comment on above: Result Comment: Canc elled via OM: Order cancelled - Patient discharged Performed By: #### L 500.2500, L100.0100 #### [facility] [address] [place], [address] GAP Normal 5-[address] [facility] Comment on above: Result Comment: Canc elled via OM: Order cancelled - Patient discharged Performed By: #### L 500.2500, L100.0100 #### [facility] [address] [place], [address] GLU Normal 74-[address] [facility] Comment on above: Result Comment: Canc elled via OM: Order cancelled - Patient discharged Performed By: #### L 500.2500, L100.0100 #### [facility] [address] [place], [address] Potassium Normal 3.5-5.[address] [facility] Comment on above: Result Comment: Canc elled via OM: Order cancelled - Patient discharged Performed By: #### L 500.2500, L100.0100 #### [facility] [address] [place], [address] Basic Metabolic Profile (BMP) Normal 136-[address] [facility] Comment on above: Result Comment: Canc elled via OM: Order cancelled - Patient discharged Performed By: #### L 500.2500, L100.0100 #### [facility] [address] [place], [address] CBC W/Diff, Automatedon 09-2 Absolute Neut Normal 2.0-7.[address] [facility] Comment on above: Result Comment: Canc elled via OM: Order cancelled - Patient discharged Performed By: #### L 500.2500, L100.0100 #### [facility] [address] [place], [address] HCT Normal 37-[address] [facility] Comment on above: Result Comment: Canc elled via OM: Order cancelled - Patient discharged Performed By: #### L 500.2500, L100.0100 #### [facility] [address] [place], [address] HGB Normal 12.0-15.[address] [facility] Comment on above: Result Comment: Canc elled via OM: Order cancelled - Patient discharged Performed By: #### L 500.2500, L100.0100 #### [facility] [address] [place], [address] MCH Normal 27.0-32.[address] [facility] Comment on above: Result Comment: Canc elled via OM: Order cancelled - Patient discharged Performed By: #### L 500.2500, L100.0100 #### [facility] [address] [place], [address] MCHC Normal 32-[address] [facility] Comment on above: Result Comment: Canc elled via OM: Order cancelled - Patient discharged Performed By: #### L 500.2500, L100.0100 #### [facility] [address] [place], [address] MCV Normal 81-[address] [facility] Comment on above: Result Comment: Canc elled via OM: Order cancelled - Patient discharged Performed By: #### L 500.2500, L100.0100 #### [facility] [address] [place], [address] NEUT% Normal 47-[address] [facility] Comment on above: Result Comment: Canc elled via OM: Order cancelled - Patient discharged Performed By: #### L 500.2500, L100.0100 #### [facility] [address] [place], [address] PLT Normal 150-[address] [facility] Comment on above: Result Comment: Canc elled via OM: Order cancelled - Patient discharged Performed By: #### L 500.2500, L100.0100 #### [facility] [address] [place], [address] RBC Normal 4.2-5.[address] [facility] Comment on above: Result Comment: Canc elled via OM: Order cancelled - Patient discharged Performed By: #### L 500.2500, L100.0100 #### [facility] [address] [place], [address] RDW CV Normal 11.6-14.[address] [facility] Comment on above: Result Comment: Canc elled via OM: Order cancelled - Patient discharged Performed By: #### L 500.2500, L100.0100 #### [facility] [address] [place], [address] RDW SD Normal 35.1-43.[address] [facility] Comment on above: Result Comment: Canc elled via OM: Order cancelled - Patient discharged Performed By: #### L 500.2500, L100.0100 #### [facility] [address] [place], [address] WBC Normal 4.4-11.[address] [facility] Comment on above: Result Comment: Canc elled via OM: Order cancelled - Patient discharged Performed By: #### L 500.2500, L100.0100 #### [facility] [address] [place], [address] Culture, Blood (WB)on 2023 CUB Blood cultures x2 fr om two different sites No growth in 5 days. Normal [facility] Comment on above: Performed By: #### L 500.2500, L100.0100 #### [facility] [address] [place], [address] Basic Metabolic Profile (BMP )on 12-05-2023 BUN Normal 7-[address] [facility] Comment on above: Result Comment: Canc elled via OM: Order cancelled - Patient discharged Performed By: #### L 500.2500, L100.0100 ####[facility] [address] [place], [address] BUN/CRE Normal 10-[address] [facility] Comment on above: Result Comment: Canc elled via OM: Order cancelled - Patient discharged Performed By: #### L 500.2500, L100.0100 ####[facility] [address] [place], [address] CA,Total Normal 8.5-10.[address] [facility] Comment on above: Result Comment: Canc elled via OM: Order cancelled - Patient discharged Performed By: #### L 500.2500, L100.0100 ####[facility] [address] [place], [address] CL Normal 98-[address] [facility] Comment on above: Result Comment: Canc elled via OM: Order cancelled - Patient discharged Performed By: #### L 500.2500, L100.0100 ####[facility] [address] [place], [address] CO2 Normal 21.0-32.[address] [facility] Comment on above: Result Comment: Canc elled via OM: Order cancelled - Patient discharged Performed By: #### L 500.2500, L100.0100 ####[facility] [address] [place], [address] CREAT,SERUM Normal 0.55-1.[address] [facility] Comment on above: Result Comment: Canc elled via OM: Order cancelled - Patient discharged Performed By: #### L 500.2500, L100.0100 ####[facility] [address] [place], [address] EST GFR Normal >[address] [facility] Comment on above: Result Comment: Canc elled via OM: Order cancelled - Patient discharged Performed By: #### L 500.2500, L100.0100 ####[facility] [address] [place], [address] EST GFR - AA Normal >[address] [facility] Comment on above: Result Comment: Canc elled via OM: Order cancelled - Patient discharged Performed By: #### L 500.2500, L100.0100 ####[facility] [address] [place], [address] GAP Normal 5-[address] [facility] Comment on above: Result Comment: Canc elled via OM: Order cancelled - Patient discharged Performed By: #### L 500.2500, L100.0100 ####[facility] [address] [place], [address] GLU Normal 74-[address] [facility] Comment on above: Result Comment: Canc elled via OM: Order cancelled - Patient discharged Performed By: #### L 500.2500, L100.0100 ####[facility] [address] [place], [address] Potassium Normal 3.5-5.[address] [facility] Comment on above: Result Comment: Canc elled via OM: Order cancelled - Patient discharged Performed By: #### L 500.2500, L100.0100 ####[facility] [address] [place], [address] Basic Metabolic Profile (BMP) Normal 136-[address] [facility] Comment on above: Result Comment: Canc elled via OM: Order cancelled - Patient discharged Performed By: #### L 500.2500, L100.0100 ####[facility] [address] [place], [address] CBC W/Diff, Automatedon 09-2 Absolute Neut Normal 2.0-7.[address] [facility] Comment on above: Result Comment: Canc elled via OM: Order cancelled - Patient discharged Performed By: #### L 500.2500, L100.0100 ####[facility] [address] [place], [address] HCT Normal 37-[address] [facility] Comment on above: Result Comment: Canc elled via OM: Order cancelled - Patient discharged Performed By: #### L 500.2500, L100.0100 ####[facility] [address] [place], [address] HGB Normal 12.0-15.[address] [facility] Comment on above: Result Comment: Canc elled via OM: Order cancelled - Patient discharged Performed By: #### L 500.2500, L100.0100 ####[facility] [address] [place], [address] MCH Normal 27.0-32.[address] [facility] Comment on above: Result Comment: Canc elled via OM: Order cancelled - Patient discharged Performed By: #### L 500.2500, L100.0100 ####[facility] [address] [place], [address] MCHC Normal 32-[address] [facility] Comment on above: Result Comment: Canc elled via OM: Order cancelled - Patient discharged Performed By: #### L 500.2500, L100.0100 ####[facility] [address] [place], [address] MCV Normal 81-[address] [facility] Comment on above: Result Comment: Canc elled via OM: Order cancelled - Patient discharged Performed By: #### L 500.2500, L100.0100 ####[facility] [address] [place], [address] NEUT% Normal 47-[address] [facility] Comment on above: Result Comment: Canc elled via OM: Order cancelled - Patient discharged Performed By: #### L 500.2500, L100.0100 ####[facility] [address] [place], [address] PLT Normal 150-[address] [facility] Comment on above: Result Comment: Canc elled via OM: Order cancelled - Patient discharged Performed By: #### L 500.2500, L100.0100 ####[facility] [address] [place], [address] RBC Normal 4.2-5.[address] [facility] Comment on above: Result Comment: Canc elled via OM: Order cancelled - Patient discharged Performed By: #### L 500.2500, L100.0100 ####[facility] [address] [place], [address] RDW CV Normal 11.6-14.[address] [facility] Comment on above: Result Comment: Canc elled via OM: Order cancelled - Patient discharged Performed By: #### L 500.2500, L100.0100 ####[facility] [address] [place], [address] RDW SD Normal 35.1-43.[address] [facility] Comment on above: Result Comment: Canc elled via OM: Order cancelled - Patient discharged Performed By: #### L 500.2500, L100.0100 ####[facility] [address] [place], [address] WBC Normal 4.4-11.[address] [facility] Comment on above: Result Comment: Canc elled via OM: Order cancelled - Patient discharged Performed By: #### L 500.2500, L100.0100 ####[facility] [address] [place], [address] Basic Metabolic Profile (BMP )on 12-04-2023 BUN Normal 7-[address] [facility] Comment on above: Result Comment: Canc elled via OM: Order cancelled - Patient discharged Performed By: #### L 500.2500, L100.0100 ####[facility] [address] [place], [address] BUN/CRE Normal 10-[address] [facility] Comment on above: Result Comment: Canc elled via OM: Order cancelled - Patient discharged Performed By: #### L 500.2500, L100.0100 ####[facility] [address] [place], [address] CA,Total Normal 8.5-10.[address] [facility] Comment on above: Result Comment: Canc elled via OM: Order cancelled - Patient discharged Performed By: #### L 500.2500, L100.0100 ####[facility] [address] [place], [address] CL Normal 98-[address] [facility] Comment on above: Result Comment: Canc elled via OM: Order cancelled - Patient discharged Performed By: #### L 500.2500, L100.0100 ####[facility] [address] [place], [address] CO2 Normal 21.0-32.[address] [facility] Comment on above: Result Comment: Canc elled via OM: Order cancelled - Patient discharged Performed By: #### L 500.2500, L100.0100 ####[facility] [address] [place], [address] CREAT,SERUM Normal 0.55-1.[address] [facility] Comment on above: Result Comment: Canc elled via OM: Order cancelled - Patient discharged Performed By: #### L 500.2500, L100.0100 ####[facility] [address] [place], [address] EST GFR Normal >[address] [facility] Comment on above: Result Comment: Canc elled via OM: Order cancelled - Patient discharged Performed By: #### L 500.2500, L100.0100 ####[facility] [address] [place], [address] EST GFR - AA Normal >[address] [facility] Comment on above: Result Comment: Canc elled via OM: Order cancelled - Patient discharged Performed By: #### L 500.2500, L100.0100 ####[facility] [address] [place], [address] GAP Normal 5-[address] [facility] Comment on above: Result Comment: Canc elled via OM: Order cancelled - Patient discharged Performed By: #### L 500.2500, L100.0100 ####[facility] [address] [place], [address] GLU Normal 74-[address] [facility] Comment on above: Result Comment: Canc elled via OM: Order cancelled - Patient discharged Performed By: #### L 500.2500, L100.0100 ####[facility] [address] [place], [address] Potassium Normal 3.5-5.[address] [facility] Comment on above: Result Comment: Canc elled via OM: Order cancelled - Patient discharged Performed By: #### L 500.2500, L100.0100 ####[facility] [address] [place], [address] Basic Metabolic Profile (BMP) Normal 136-[address] [facility] Comment on above: Result Comment: Canc elled via OM: Order cancelled - Patient discharged Performed By: #### L 500.2500, L100.0100 ####[facility] [address] [place], [address] CBC W/Diff, Automatedon 09-2 Absolute Neut Normal 2.0-7.[address] [facility] Comment on above: Result Comment: Canc elled via OM: Order cancelled - Patient discharged Performed By: #### L 500.2500, L100.0100 ####[facility] [address] [place], [address] HCT Normal 37-[address] [facility] Comment on above: Result Comment: Canc elled via OM: Order cancelled - Patient discharged Performed By: #### L 500.2500, L100.0100 ####[facility] [address] [place], [address] HGB Normal 12.0-15.[address] [facility] Comment on above: Result Comment: Canc elled via OM: Order cancelled - Patient discharged Performed By: #### L 500.2500, L100.0100 ####[facility] [address] [place], [address] MCH Normal 27.0-32.[address] [facility] Comment on above: Result Comment: Canc elled via OM: Order cancelled - Patient discharged Performed By: #### L 500.2500, L100.0100 ####[facility] [address] [place], [address] MCHC Normal 32-[address] [facility] Comment on above: Result Comment: Canc elled via OM: Order cancelled - Patient discharged Performed By: #### L 500.2500, L100.0100 ####[facility] [address] [place], [address] MCV Normal 81-[address] [facility] Comment on above: Result Comment: Canc elled via OM: Order cancelled - Patient discharged Performed By: #### L 500.2500, L100.0100 ####[facility] [address] [place], [address] NEUT% Normal 47-[address] [facility] Comment on above: Result Comment: Canc elled via OM: Order cancelled - Patient discharged Performed By: #### L 500.2500, L100.0100 ####[facility] [address] [place], [address] PLT Normal 150-[address] [facility] Comment on above: Result Comment: Canc elled via OM: Order cancelled - Patient discharged Performed By: #### L 500.2500, L100.0100 ####[facility] [address] [place], [address] RBC Normal 4.2-5.[address] [facility] Comment on above: Result Comment: Canc elled via OM: Order cancelled - Patient discharged Performed By: #### L 500.2500, L100.0100 ####[facility] [address] [place], [address] RDW CV Normal 11.6-14.[address] [facility] Comment on above: Result Comment: Canc elled via OM: Order cancelled - Patient discharged Performed By: #### L 500.2500, L100.0100 ####[facility] [address] [place], [address] RDW SD Normal 35.1-43.[address] [facility] Comment on above: Result Comment: Canc elled via OM: Order cancelled - Patient discharged Performed By: #### L 500.2500, L100.0100 ####[facility] [address] [place], [address] WBC Normal 4.4-11.[address] [facility] Comment on above: Result Comment: Canc elled via OM: Order cancelled - Patient discharged Performed By: #### L 500.2500, L100.0100 ####[facility] [address] [place], [address] Respiratory Cultureon 2023 RESPC Presumptive C albica ns Amount Growth 3+ Streptococcus pneumoniae Amount Growth Rare Streptococcus pneumoniae: REACTION Cefotaxime Islt DESTIN <=0.12 S Cefotaxime Islt DESTIN <=0.12 S cefTRIAXone Islt DESTIN <=0.12 S cefTRIAXone Islt DESTIN <=0.12 S Clindamycin Islt DESTIN <=0.25 S Erythromycin Islt DESTIN <=0.12 S levoFLOXacin Islt DESTIN 1 S Moxifloxacin Islt DESTIN 0.12 S TMP SMX Islt DESTIN <=10 S Penicillin Islt DESTIN <=0.06 S Penicillin Islt DESTIN <=0.06 S Penicillin Islt DESTIN <=0.06 S Normal [facility] Comment on above: Performed By: #### L 500.2500, L100.0100 #### [facility] [address] [place], [address] Basic Metabolic Profile (BMP )on 12-03-2023 BUN/CRE 30.6 RATIO High 10-[address] [facility] Comment on above: Performed By: #### L 500.2500, L100.0100 #### [facility] [address] [place], [address] CA,Total 9.0 mg/dL Normal 8.5-10.[address] [facility] Comment on above: Performed By: #### L 500.2500, L100.0100 #### [facility] [address] [place], [address] Chloride [Moles/Vol] 99 mmol/L Normal 98-107 [facility] Comment on above: Performed By: #### L 500.2500, L100.0100 #### [facility] [address] [place], [address] CO2 [Moles/Vol] 35.0 mmol/L High 21.0-32.[address] [facility] Comment on above: Performed By: #### L 500.2500, L100.0100 #### [facility] [address] [place], [address] Creatinine [Mass/Vol] 0.65 mg/dL Normal 0.55-1.02 [facility] Comment on above: Result Comment: The validity of the calculated GFR GFRAA in patients over 70 years has not been determined. Clinical correlation is essential. Performed By: #### L 500.2500, L100.0100 #### [facility] [address] [place], [address] ECRCL 73.39 ml/min Normal [facility] Comment on above: Performed By: #### L 500.2500, L100.0100 #### [facility] [address] [place], [address] EST GFR - AA 114 mL/min Normal >[address] [facility] Comment on above: Result Comment: Afri can Maur[place]ian GFR Calc Performed By: #### L 500.2500, L100.0100 #### [facility] [address] [place], [address] GAP 6 Normal 5-[address] [facility] Comment on above: Performed By: #### L 500.2500, L100.0100 #### [facility] [address] [place], [address] GFR/1.73 sq M.predicted among non-blacks MDRD (S/P/Bld) [Vol rate/Area] 95 mL/min/{1.73_m2} Normal >[address] [facility] Comment on above: Result Comment: Non- GFR Calc Performed By: #### L 500.2500, L100.0100 #### [facility] [address] [place], [address] Glucose [Mass/Vol] 118 mg/dL High 74-106 [facility] Comment on above: Result Comment: Fast ing Glucose result from 100 to 125 mg/dL suggests IMPAIRED HOMEOSTASIS per A.D.A. criteria. Performed By: #### L 500.2500, L100.0100 #### [facility] [address] [place], [address] Potassium [Moles/Vol] 3.7 mmol/L Normal 3.5-5.1 [facility] Comment on above: Performed By: #### L 500.2500, L100.0100 #### [facility] [address] [place], [address] Sodium [Moles/Vol] 140 mmol/L Normal 136-145 [facility] Comment on above: Performed By: #### L 500.2500, L100.0100 #### [facility] [address] [place], [address] Urea nitrogen [Mass/Vol] 20 mg/dL High 7-[address] [facility] Comment on above: Performed By: #### L 500.2500, L100.0100 #### [facility] [address] [place], [address] CBC W/Diff, Automatedon 11-14 PATH REV Reviewed Normal [facility] Comment on above: Result Comment: Leuk ocytosis, ABSOLUTE MONOCYTOSIS Normocytic anemia. MILD Thrombocytopenia. Clinical correlation necessary. Mehul Robins M.D. 12/03/23 AMENDED REPORT 12/03/23 1403 PATH REV previously reported as: July Performed By: #### L 500.2500, L100.0100 #### [facility] [address] [place], [address] PATH REV Reviewed Normal [facility] Comment on above: Result Comment: Norm ocytic anemia. Neutrophilic leukocytosis. MILD Thrombocytopenia. Clinical correlation necessary. Mehul Robins M.D. 12/03/23 AMENDED REPORT 12/03/23 1357 PATH REV previously reported as: July Performed By: #### L 100.0100, L500.4050 #### [facility] [address] [place], [address] Discharge Instructionon 11-14 Discharge Instruction [facility] Medical Records Department [address] [place] [address] Instructions for Home/Discharge Instructions 12/03/23 1107 MR#: [id number] Acct: [id number] Name: ALTA BAKER Rep #: [id number] : 1950 73 From: Luna Bustamante MD PCP: Dr. Davis Irene, DO Status:ADM IN Discharge Instructions Diet Discharge Diet: Low fat / Low cholesterol Activity Discharge Activity: Return to Normal Activity Weight Bearing Status: Weight bearing as tolerated Dressing / Incision Call your doctor if you observe: Fever of 101 or Higher, Shortness of breath, Dizziness, Swelling in the ankles and Chest pain Follow Up Care Test Results: Test results from this visit will be discussed in further detail at your follow-up appointment, if applicable. Discharge Plan Admission Admit Date/Time: 12/01/23 13:05 Primary Reason for Your Visit: hypoxia due to community acquired pneumonia, covid Attending Provider: Luna Bustamante Primary Care Provider: Davis Irene Instructions Patient Instructions: Coronavirus Disease 2019 (COVID-19): Overview, Coronavirus Disease 2019 (COVID-19): Caring for Yourself or Others, ED Pneumonia (Adult) Additional Instructions / Restrictions: use oxygen 2L as needed for shortness of breath Discharge Orders/Prescriptions Prescriptions: New fluconazole 200 mg tablet 200 mg PO DAILY Qty: 7 0RF amoxicillin-pot clavulanate 875-125 mg tablet 1 tab PO BID Qty: 14 0RF dexamethasone 6 mg tablet 6 mg PO DAILY Qty: 7 0RF Continued furosemide 40 MG tablet 40 mg PO BID Patient Comments: Water pill sertraline 50 MG tablet 50 mg PO QHS Patient Comments: Anti-depressant/anxiety potassium chloride [Klor-Con M20] 20 MEQ tablet 20 meq PO DAILY Patient Comments: SUPPLEMENT lisinopril 10 MG tablet 20 mg PO DAILY Patient Comments: BLOOD PRESSURE/HEART digoxin [Digox] 125 MCG tablet 125 mcg PO DAILY Patient Comments: HEART metoprolol tartrate 50 MG tablet 100 mg PO BID Patient Comments: Heart rate/blood pressure atorvastatin 10 MG tablet 10 mg PO QHS Patient Comments: CHOLESTEROL Eliquis 5 mg tablet 5 mg PO BID guaifenesin [Mucus Relief ER] 1,200 mg Tablet Extended Release 12hr 1,200 mg PO BID Qty: 10 0RF albuterol sulfate 0.63 mg/3 mL solution for nebulization 0.63 mg inhalation Q4H PRN (Reason: shortness of breath or wheezing) Qty: 75 0RF Referrals / Follow Up: Kory Ibarra DO [Non-Staff] - Within 1 Week Davis Irene DO [Primary Care Provider] - Disposition Disposition (needs filled in before D/C Order can be placed): Home, Self Care 12/03/23 1110 Luna Bustamante MD CC: Dr. Davis Irene DO Signed Normal [facility] Urine Cultureon 12-03-2023 URC Below infection leve l. Mixed Gram Pos Gram Neg Org Ripley Count 1000-10,000 MIXC Mixed contaminants. Submit a new specimen if indicated. Normal [facility] Comment on above: Performed By: #### M 100.2200 ####[facility] [address] [place], [address] URC Presumptive E. coli Ripley Count 11,000-25,000 Presumptive E. coli: REACTION Ampicillin Islt DESTIN <=2 S Ampicillin+Sulbac Islt DESTIN <=2 S ceFAZolin Islt DESTIN <=4 S Cefepime Islt DESTIN <=0.12 S cefTRIAXone Islt DESTIN <=0.25 S Ciprofloxacin Islt DESTIN <=0.25 S Ertapenem Islt DESTIN <=0.12 S B-Lactamase Extended Susc Islt NEG Gentamicin Islt DESTIN <=1 S Imipenem Islt DESTIN <=0.25 S levoFLOXacin Islt DESTIN <=0.12 S Nitrofurantoin Islt DESTIN <=16 S Pip+Tazo Islt DESTIN <=4 S Tobramycin Islt DESTIN <=1 S TMP SMX Islt DESTIN <=[address] [facility] Comment on above: Performed By: #### L 500.2500, L100.0100 #### [facility] [address] [place], [address] CBC W/Diff, Automatedon 11-13 PATH REV Reviewed Normal [facility] Comment on above: Result Comment: Leuk ocytosis, ABSOLUTE MONOCYTOSIS Normocytic anemia. MILD Thrombocytopenia. Clinical correlation necessary. Mehul Robins M.D. 12/02/23 AMENDED REPORT 12/02/23 1506 PATH REV previously reported as: July Performed By: #### L 100.0100, L501.5425, L503.6620, L500.2500 #### [facility] [address] [place], [address] Comprehensive Metabolic Prof ilon 12-02-2023 Albumin [Mass/Vol] 3.2 g/dL Normal 3.2-5.0 [facility] Comment on above: Order Comment: TERRI Acevedo PREVIOUS SPECIMEN REJECTED DUE TOHEMOLYSIS. 12/02/23711 Curt Thacker. Performed By: #### L 500.2500, L100.0100 #### [facility] [address] [place], [address] Albumin/Globulin [Mass ratio] 0.9 {ratio} Normal 0.9-2.[address] [facility] Comment on above: Order Comment: REDRA W. PREVIOUS SPECIMEN REJECTED DUE TOHEMOLYSIS. 12/02/23711 Curt Thacker. Performed By: #### L 500.2500, L100.0100 #### [facility] [address] [place], [address] ALK P 82 U/L Normal 45-[address] [facility] Comment on above: Order Comment: REDRA W. PREVIOUS SPECIMEN REJECTED DUE TOHEMOLYSIS. 12/02/23711 Curt Thacker. Performed By: #### L 500.2500, L100.0100 #### [facility] [address] [place], [address] ALT [Catalytic activity/Vol] 18 U/L Normal 13-[address] [facility] Comment on above: Order Comment: REDRA W. PREVIOUS SPECIMEN REJECTED DUE TOHEMOLYSIS. 12/02/23711 Curt Thacker. Performed By: #### L 500.2500, L100.0100 #### [facility] [address] [place], [address] AST [Catalytic activity/Vol] 7 U/L Low 15-[address] [facility] Comment on above: Order Comment: REDRA W. PREVIOUS SPECIMEN REJECTED DUE TOHEMOLYSIS. 12/02/23711 Curt Thacker. Performed By: #### L 500.2500, L100.0100 #### [facility] [address] [place], [address] Bilirubin [Mass/Vol] 1.80 mg/dL High 0.20-1.00 [facility] Comment on above: Order Comment: REDRA W. PREVIOUS SPECIMEN REJECTED DUE TOHEMOLYSIS. 12/02/23711 Curt Thacker. Result Comment: For patients on eltrombopag therapy, use of Dimension [place] TBIL is not recommended. Performed By: #### L 500.2500, L100.0100 #### [facility] [address] [place], [address] BUN/CRE 25.8 RATIO High 10-[address] [facility] Comment on above: Order Comment: REDRA W. PREVIOUS SPECIMEN REJECTED DUE TOHEMOLYSIS. 12/02/23711 Curt Thacker. Performed By: #### L 500.2500, L100.0100 #### [facility] [address] [place], [address] CA,Total 9.2 mg/dL Normal 8.5-10.[address] [facility] Comment on above: Order Comment: REDRA W. PREVIOUS SPECIMEN REJECTED DUE TOHEMOLYSIS. 12/02/23711 Curt Thacker. Performed By: #### L 500.2500, L100.0100 #### [facility] [address] [place], [address] Chloride [Moles/Vol] 100 mmol/L Normal 98-107 [facility] Comment on above: Order Comment: REDRA W. PREVIOUS SPECIMEN REJECTED DUE TOHEMOLYSIS. 12/02/23711 Curt Thacker. Performed By: #### L 500.2500, L100.0100 #### [facility] [address] [place], [address] CO2 [Moles/Vol] 38.0 mmol/L High 21.0-32.[address] [facility] Comment on above: Order Comment: REDRA W. PREVIOUS SPECIMEN REJECTED DUE TOHEMOLYSIS. 12/02/23711 Curt Thacker. Performed By: #### L 500.2500, L100.0100 #### [facility] [address] [place], [address] Creatinine [Mass/Vol] 0.62 mg/dL Normal 0.55-1.02 [facility] Comment on above: Order Comment: REDRA W. PREVIOUS SPECIMEN REJECTED DUE TOHEMOLYSIS. 12/02/23711 Curt Thacker. Result Comment: The validity of the calculated GFR GFRAA in patients over 70 years has not been determined. Clinical correlation is essential. Performed By: #### L 500.2500, L100.0100 #### [facility] [address] [place], [address] ECRCL 73.39 ml/min Normal [facility] Comment on above: Order Comment: REDRA W. PREVIOUS SPECIMEN REJECTED DUE TOHEMOLYSIS. 12/02/23711 Curt Thacker. Performed By: #### L 500.2500, L100.0100 #### [facility] [address] [place], [address] EST GFR - AA 121 mL/min Normal >[address] [facility] Comment on above: Order Comment: REDRA W. PREVIOUS SPECIMEN REJECTED DUE TOHEMOLYSIS. 12/02/23711 Curt Thacker. Result Comment: Afri can Maur[place]ian GFR Calc Performed By: #### L 500.2500, L100.0100 #### [facility] [address] [place], [address] GAP 3 Low 5-[address] [facility] Comment on above: Order Comment: REDRA W. PREVIOUS SPECIMEN REJECTED DUE TOHEMOLYSIS. 12/02/23711 Curt Thacker. Performed By: #### L 500.2500, L100.0100 #### [facility] [address] [place], [address] GFR/1.73 sq M.predicted among non-blacks MDRD (S/P/Bld) [Vol rate/Area] 100 mL/min/{1.73_m2} Normal >[address] [facility] Comment on above: Order Comment: REDRA W. PREVIOUS SPECIMEN REJECTED DUE TOHEMOLYSIS. 12/02/23711 Curt Thacker. Result Comment: Non- GFR Calc Performed By: #### L 500.2500, L100.0100 #### [facility] [address] [place], [address] Globulin (S) [Mass/Vol] 3.5 g/dL Normal 2.2-4.[address] [facility] Comment on above: Order Comment: REDRA W. PREVIOUS SPECIMEN REJECTED DUE TOHEMOLYSIS. 12/02/23711 Curt Thacker. Performed By: #### L 500.2500, L100.0100 #### [facility] [address] [place], [address] Glucose [Mass/Vol] 132 mg/dL High 74-106 [facility] Comment on above: Order Comment: REDRA W. PREVIOUS SPECIMEN REJECTED DUE TOHEMOLYSIS. 12/02/23711 Curt Thacker. Result Comment: Fast ing Glucose result greater than or equal to 126 mg/dL suggests DIABETES MELLITUS per A.D.A. criteria. Performed By: #### L 500.2500, L100.0100 #### [facility] [address] [place], [address] Potassium [Moles/Vol] 3.9 mmol/L Normal 3.5-5.1 [facility] Comment on above: Order Comment: REDRA W. PREVIOUS SPECIMEN REJECTED DUE TOHEMOLYSIS. 12/02/23711 Curt Thacker. Performed By: #### L 500.2500, L100.0100 #### [facility] [address] [place], [address] Sodium [Moles/Vol] 141 mmol/L Normal 136-145 [facility] Comment on above: Order Comment: REDRA W. PREVIOUS SPECIMEN REJECTED DUE TOHEMOLYSIS. 12/02/23711 Curt Thacker. Performed By: #### L 500.2500, L100.0100 #### [facility] [address] [place], [address] T PROT 6.7 g/dL Normal 6.4-8.[address] [facility] Comment on above: Order Comment: REDRA W. PREVIOUS SPECIMEN REJECTED DUE TOHEMOLYSIS. 12/02/23711 Curt Thacker. Performed By: #### L 500.2500, L100.0100 #### [facility] [address] [place], [address] Urea nitrogen [Mass/Vol] 16 mg/dL Normal 7-[address] [facility] Comment on above: Order Comment: TERRI W. PREVIOUS SPECIMEN REJECTED DUE TOHEMOLYSIS. 12/02/23 07 Curt Case White. Performed By: #### L 500.2500, L100.0100 #### [facility] [address] [place], [address] ALB Normal 3.2-5.[address] [facility] Comment on above: Result Comment: This specimen has been REJECTED due to Laboratory criteria: Hemolyzed. PIPELINE WELDER has been notified of need of recollection. 12/02/23708 Curt Case White Performed By: #### L 100.0100, L500.4050 #### [facility] [address] [place], [address] ALK P Normal 45-[address] [facility] Comment on above: Result Comment: This specimen has been REJECTED due to Laboratory criteria: Hemolyzed. PIPELINE WELDER has been notified of need of recollection. 12/02/23708 Curt Case White Performed By: #### L 100.0100, L500.4050 #### [facility] [address] [place], [address] ALT Normal 13-[address] [facility] Comment on above: Result Comment: This specimen has been REJECTED due to Laboratory criteria: Hemolyzed. PIPELINE WELDER has been notified of need of recollection. 12/02/23708 Curt L White Performed By: #### L 100.0100, L500.4050 #### [facility] [address] [place], [address] AST Normal 15-[address] [facility] Comment on above: Result Comment: This specimen has been REJECTED due to Laboratory criteria: Hemolyzed. PIPELINE WELDER has been notified of need of recollection. 12/02/23 07 Curt L White Performed By: #### L 100.0100, L500.4050 #### [facility] [address] [place], [address] BUN Normal 7-[address] [facility] Comment on above: Result Comment: This specimen has been REJECTED due to Laboratory criteria: Hemolyzed. PIPELINE WELDER has been notified of need of recollection. 12/02/23 07 Curt L White Performed By: #### L 100.0100, L500.4050 #### [facility] [address] [place], [address] BUN/CRE Normal 10-[address] [facility] Comment on above: Result Comment: This specimen has been REJECTED due to Laboratory criteria: Hemolyzed. PIPELINE WELDER has been notified of need of recollection. 12/02/23708 Curt L White Performed By: #### L 100.0100, L500.4050 #### [facility] [address] [place], [address] CA,Total Normal 8.5-10.[address] [facility] Comment on above: Result Comment: This specimen has been REJECTED due to Laboratory criteria: Hemolyzed. PIPELINE WELDER has been notified of need of recollection. 12/02/23 07 Curt L White Performed By: #### L 100.0100, L500.4050 #### [facility] [address] [place], [address] CL Normal 98-[address] [facility] Comment on above: Result Comment: This specimen has been REJECTED due to Laboratory criteria: Hemolyzed. PIPELINE WELDER has been notified of need of recollection. 12/02/23708 Curt L White Performed By: #### L 100.0100, L500.4050 #### [facility] [address] [place], [address] CO2 Normal 21.0-32.[address] [facility] Comment on above: Result Comment: This specimen has been REJECTED due to Laboratory criteria: Hemolyzed. PIPELINE WELDER has been notified of need of recollection. 12/02/23708 Curt L White Performed By: #### L 100.0100, L500.4050 #### [facility] [address] [place], [address] CREAT,SERUM Normal 0.55-1.[address] [facility] Comment on above: Result Comment: This specimen has been REJECTED due to Laboratory criteria: Hemolyzed. PIPELINE WELDER has been notified of need of recollection. 12/02/23 07 Curt L White Performed By: #### L 100.0100, L500.4050 #### [facility] [address] [place], [address] EST GFR Normal >[address] [facility] Comment on above: Result Comment: This specimen has been REJECTED due to Laboratory criteria: Hemolyzed. PIPELINE WELDER has been notified of need of recollection. 12/02/23708 Curt L White Performed By: #### L 100.0100, L500.4050 #### [facility] [address] [place], [address] EST GFR - AA Normal >[address] [facility] Comment on above: Result Comment: This specimen has been REJECTED due to Laboratory criteria: Hemolyzed. PIPELINE WELDER has been notified of need of recollection. 12/02/23708 Curt L White Performed By: #### L 100.0100, L500.4050 #### [facility] [address] [place], [address] GAP Normal 5-[address] [facility] Comment on above: Result Comment: This specimen has been REJECTED due to Laboratory criteria: Hemolyzed. PIPELINE WELDER has been notified of need of recollection. 12/02/23708 Curt L White Performed By: #### L 100.0100, L500.4050 #### [facility] [address] [place], [address] GLU Normal 74-[address] [facility] Comment on above: Result Comment: This specimen has been REJECTED due to Laboratory criteria: Hemolyzed. PIPELINE WELDER has been notified of need of recollection. 12/02/23708 Curt L White Performed By: #### L 100.0100, L500.4050 #### [facility] [address] [place], [address] Potassium Normal 3.5-5.[address] [facility] Comment on above: Result Comment: This specimen has been REJECTED due to Laboratory criteria: Hemolyzed. PIPELINE WELDER has been notified of need of recollection. 12/02/23708 Curt L White Performed By: #### L 100.0100, L500.4050 #### [facility] [address] [place], [address] T BILI Normal 0.20-1.[address] [facility] Comment on above: Result Comment: This specimen has been REJECTED due to Laboratory criteria: Hemolyzed. PIPELINE WELDER has been notified of need of recollection. 12/02/23 07 Curt L White Performed By: #### L 100.0100, L500.4050 #### [facility] [address] [place], [address] T PROT Normal 6.4-8.[address] [facility] Comment on above: Result Comment: This specimen has been REJECTED due to Laboratory criteria: Hemolyzed. PIPELINE WELDER has been notified of need of recollection. 12/02/23708 Curt L White Performed By: #### L 100.0100, L500.4050 #### [facility] [address] [place], [address] Comprehensive Metabolic Profil Normal 136-[address] [facility] Comment on above: Result Comment: This specimen has been REJECTED due to Laboratory criteria: Hemolyzed. PIPELINE WELDER has been notified of need of recollection. 12/02/23708 Curt L White Performed By: #### L 100.0100, L500.4050 #### [facility] [address] [place], [place], [address] Gram Stainon 12-02-2023 GS Acceptable Specimen? Yes (<25 Epithelial cells per/lpf) Gram Stain 1+ Yeast Like Organisms 3+ White Blood Cells 2+ Gram positive cocci 2+ Gram positive rods Rare Epithelial cells Normal [facility] Comment on above: Performed By: #### L 500.2500, L100.0100 #### [facility] [address] [facility] [place], [address] 12 Lead EKGon 12-01-2023 12 Lead EKG [facility] Cardiovascular Services [address] [place] [address] 12 Lead EKG 12/01/23 1126 MR#: [id number] Acct: [id number] Name: ALTA BAKER Rep #: [id number] : 1950 73 From: Brayan Link MD Attending Dr: Dr. Luna Bustamante MD Status: DI S IN Ordering Dr: Kavin Rayo DO Date: 12/01/23 Location: [facility] Sex: F C Admitted: 12/01/23 Test Reason : SOB Blood Pressure : / mmHG Vent. Rate : 099 BPM Atrial Rate : 000 BPM P-R Int : 000 ms QRS Dur : 086 ms QT Int : 326 ms P-R-T Axes : 000 057 059 degrees QTc Int : 418 ms Atrial fibrillation Abnormal ECG Confirmed by Brayan Link ([id number]), editor producer KRISSY MORALES ([id number]) on 12/06/2023 10:20:42 AM Referred By: Kavin Rayo Confirmed By:Brayan Link 12/06/23 1020 Date Brayan Link MD CC: Dr. Davis Irene DO; Dr. Luna Bustamante MD; Dr. Kavin Rayo DO Signed Normal [facility] 36on 12-01-2023 36 Noted Normal [facility] 36 Normal [facility] Alkaline Phosphataseon 11-30 ALK P 73 U/L Normal 45-[address] [facility] Comment on above: Performed By: #### L 500.2500, L100.0100 #### [facility] [address] [place], [address] BNP,B-Type NATRIURETIC PEPTI Demario 12-01-2023 Natriuretic peptide B (Bld) [Mass/Vol] 312.3 pg/mL High 0-[address] [facility] Comment on above: Performed By: #### L 100.0100, L501.5425, L503.6620, L500.2500 ####[facility] [address] [place], [address] Basic Metabolic Profile (BMP )on 12-01-2023 BUN/CRE 19.7 RATIO Normal 10-[address] [facility] Comment on above: Order Comment: 1 Y Performed By: #### L 100.0100, L501.5425, L503.6620, L500.2500 #### [facility] [address] [place], [address] CA,Total 9.9 mg/dL Normal 8.5-10.[address] [facility] Comment on above: Order Comment: 1 Y Performed By: #### L 100.0100, L501.5425, L503.6620, L500.2500 #### [facility] [address] [place], [address] Chloride [Moles/Vol] 95 mmol/L Low 98-107 [facility] Comment on above: Order Comment: 1 Y Performed By: #### L 100.0100, L501.5425, L503.6620, L500.2500 #### [facility] [address] [place], [address] CO2 [Moles/Vol] 39.0 mmol/L High 21.0-32.[address] [facility] Comment on above: Order Comment: 1 Y Performed By: #### L 100.0100, L501.5425, L503.6620, L500.2500 #### [facility] [address] [place], [address] Creatinine [Mass/Vol] 0.71 mg/dL Normal 0.55-1.02 [facility] Comment on above: Order Comment: 1 Y Result Comment: The validity of the calculated GFR GFRAA in patients over 70 years has not been determined. Clinical correlation is essential. Performed By: #### L 100.0100, L501.5425, L503.6620, L500.2500 #### [facility] [address] [place], [address] ECRCL 74.72 ml/min Normal [facility] Comment on above: Order Comment: 1 Y Performed By: #### L 100.0100, L501.5425, L503.6620, L500.2500 #### [facility] [address] [place], [address] EST GFR - AA 104 mL/min Normal >[address] [facility] Comment on above: Order Comment: 1 Y Result Comment: Afri can Mauritanian GFR Calc Performed By: #### L 100.0100, L501.5425, L503.6620, L500.2500 #### [facility] [address] [place], [address] GAP 5 Normal 5-[address] [facility] Comment on above: Order Comment: 1 Y Performed By: #### L 100.0100, L501.5425, L503.6620, L500.2500 #### [facility] [address] [place], [address] GFR/1.73 sq M.predicted among non-blacks MDRD (S/P/Bld) [Vol rate/Area] 86 mL/min/{1.73_m2} Normal >[address] [facility] Comment on above: Order Comment: 1 Y Result Comment: Non- GFR Calc Performed By: #### L 100.0100, L501.5425, L503.6620, L500.2500 #### [facility] [address] [place], [address] Glucose [Mass/Vol] 132 mg/dL High 74-106 [facility] Comment on above: Order Comment: 1 Y Result Comment: Fast ing Glucose result greater than or equal to 126 mg/dL suggests DIABETES MELLITUS per A.D.A. criteria. Performed By: #### L 100.0100, L501.5425, L503.6620, L500.2500 #### [facility] [address] [place], [address] Potassium [Moles/Vol] 3.9 mmol/L Normal 3.5-5.1 [facility] Comment on above: Order Comment: 1 Y Performed By: #### L 100.0100, L501.5425, L503.6620, L500.2500 #### [facility] [address] [place], [address] Sodium [Moles/Vol] 139 mmol/L Normal 136-145 [facility] Comment on above: Order Comment: 1 Y Performed By: #### L 100.0100, L501.5425, L503.6620, L500.2500 #### [facility] [address] [place], [address] Urea nitrogen [Mass/Vol] 14 mg/dL Normal 7-[address] [facility] Comment on above: Order Comment: 1 Y Performed By: #### L 100.0100, L501.5425, L503.6620, L500.2500 #### [facility] [address] [place], [address] Chest PA and Lateralon 11-30 Chest PA and Lateral [facility] Imaging Services [address] [place] [address] Chest PA and Lateral MR#: [id number] Acct: [id number] Name: ALTA BAKER Rep #: [id number] : 1950 F 73 From: Aris torrez MD PCP: Dr. Davis Irene DO Status: REG ER Study: Chest PA and Lateral Date of Exam: 12/01/23 Exam# [id number] Ordering Dr: Kavin Rayo DO [id number] STUDY: X-RAY CHEST REASON FOR EXAM: Female, 73 years old. Sob TECHNIQUE: AP and lateral views of the chest. COMPARISON: Comparison is made with prior study dated January 18, 2022. FINDINGS: EKG electrodes are seen. There is consolidation of the right middle lobe. Radiographic follow-up is recommended. There is no demonstrated pleural abnormality. There is mild cardiac enlargement. Normal mediastinum and chelo. Normal visualized pulmonary arteries. Normal visualized aortic arch and descending thoracic aorta. There are degenerative changes of the visualized thoracic spine. Normal visualized ribs, clavicles, and shoulders. There is no demonstrated abnormality of the visualized soft tissue structures of the upper abdomen. RAD/Chest PA and Lateral IMPRESSION: Right middle lobe consolidation. Radiographic follow-up recommended. Electronically Signed: Aris Dubon MD at 12:12 EDT , CC: Dr. Davis Irene DO; Dr. Kavin Rayo DO Outsole Splicer: Signed Normal [facility] Emergency Department Summary on 12-01-2023 Emergency Department Summary [facility] Medical Records Department [address] [place] [address] Emergency Department Summary 12/01/23 MR#: [id number] Acct: [id number] Name: JASON BAKERRA Johnston Rep #: [id number] : 1950 73 From: Kavin Rayo DO PCP: Dr. Davis Irene DO Status:REG ER Location: ED ADDENDUM by Dr. Kavin Rayo DO on 12/01/23 at 1257 Patient CBC was significant for leukocytosis of 17,000, he was stable 10.7, platelet count was noted to be 121 her previous blood draw on okay 01/22/2022 her platelet count was normal at 152, patient's sodium normal 139, potassium normal 3.9. Patient's creatinine normal at 0.7. Patient lactic acid normal at 1.6, proBNP elevated at 312.13, troponin was noted be normal at 11. Patient's EKG was reviewed and independently interpreted by myself which showed atrial fibrillation with a rate of 99 bpm she does have a history of atrial fibrillation as noted above is anticoagulated with Eliquis. Patient urinalysis showed 25 leukocyte esterase 0-5 white cells with 3+ bacteria she does not have any urinary symptoms this will be sent for culture. Patient's x-ray of her chest was reviewed once again and showed a right sided middle lobe consolidation she was given IV antibiotics as noted above. She will require admission to discuss case with hospitalist. Dr. Bustamante will accept patient for admission. Patient was notified as well as family and was bedside all questions were answered bedside. Reperfusion assessment performed and patient is noted to be hypertensive therefore no indication for vasopressors. 12/01/23 1257 Cosigner Signature (if applicable): cc: Dr. Davis Irene DO * Signed ADDENDUM by Dr. Kavin Rayo DO on 12/01/23 at 1218 Patient chest x-ray reviewed and was concern for a right sided pneumonia therefore she was given vancomycin and Zosyn. 12/01/23 1218 Cosigner Signature (if applicable): cc: Dr. Davis Irene DO * Signed HPI History of Present Illness Chief Complaint: Shortness of Breath Narrative Narrative: Patient is a 73-year-old female past medical history atrial fibrillation on Eliquis, CHRISTIANNE, CHF, dyslipidemia who presented to the emerged part with chief complaint of low oxygen levels. According to the family ember at bedside there have been some upper respiratory illnesses going through the house. States that on Wednesday they noted that her oxygen level was in the 70s and noted that she had increased swelling in her lower extremities therefore they had at home oxygen from a previous bout of RSV as well as inhalers which they put on her. They noted that they increased her home Lasix for 2 days and seemed to get better. They state that today they called her primary care physician's office for a follow-up appointment however they advised her to come here as her oxygen level once again was in the 70s on room air. She states that she is not chronically on oxygen. States that she has never smoked and denies any history of COPD or asthma.They state that she has been compliant with her anticoagulation not missing doses. [facility] Medical History Asthma Depression Atrial fibrillation with RVR Anticoagulant long-term use Obstructive sleep apnea Congestive heart failure (CHF) Dyslipidemia HTN (hypertension) Paroxysmal atrial fibrillation Morbid obesity with body mass index of 50.0-59.9 in adult Home Medications ???Medication ???Instructions ???Recorded ???Last Taken ???Type furosemide 40 mg tablet 40 mg PO BID diuretic 10/27/13 07/14/16 History sertraline 50 mg tablet 25 mg PO QHS mental health 10/27/13 07/13/16 History digoxin 125 mcg (0.125 mg) tablet 125 mcg PO DAILY heart rate 01/24/16 07/14/16 History (Digox) lisinopril 10 mg tablet 20 mg PO DAILY blood pressure 01/24/16 07/14/16 History metoprolol tartrate 50 mg tablet 100 mg PO BID blood pressure 01/24/16 07/14/16 History potassium chloride 20 mEq 20 meq PO DAILY supplement 01/24/16 07/14/16 History tablet,extended release(part/cryst) (Klor-Con M) atorvastatin 10 mg tablet 10 mg PO QHS cholesterol 07/14/16 07/13/16 History apixaban 5 mg tablet (Eliquis) 5 mg PO BID blood thinner 01/18/22 Unknown History albuterol sulfate 0.63 mg/3 mL 0.63 mg (3 mL) inhalation Q4H PRN 01/22/22 Unknown Rx solution for nebulization shortness of breath or wheezing #75 mL guaifenesin 1,200 mg tablet, 1,200 mg PO BID #10 tabs 01/22/22 Unknown Rx extended release 12 hr (Mucus Relief ER) prednisone 20 mg tablet 40 mg (2 x 20 mg) PO BREAKFAST #14 01/22/22 Unknown Rx tabs Allergy/AdvReac Type Severity Reaction Status Date / Time Tetanus Vaccines and Toxoid Allergy Unknown Verified 12/01/23 11:11 (Tetanus Vaccines Toxoid) Family History (Reviewed 12/01/23 @ 11:2 (more content not included)... Normal [facility] H AND P Exam - Hospitaliston 12-01-2023 H&P Exam - Hospitalist [facility] Medical Records Department [address] [place] [address] H P Exam - Hospitalist 12/01/23 1252 MR#: [id number] Acct: [id number] Name: ALTA BAKER Rep #: [id number] : 1950 73 From: Luna Bustamante MD PCP: Dr. Davis Irene, DO Status:ADM IN Location: [facility] [id number] HPI - General General Date of Admission: 12/01/23 Date of Service: 12/01/23 HPI Narrative ALTA BAKER, is a 73 F with a PMH as outlined who presents via the ED with a complaint of shortness of breath which ahd been going on for a few days prior to admission. She was noted to have low oxygen levels at home. She doesnt wear oxygen at home. Family noted that her oxygen sats were in the 70s. Family increased her home lasix dose at home and initially improved, but she was subsequently noted to be hypoxic again. She also had a cough which was productive of yellowish sputum, but denied any fever or chills, palpitations, dizziness, nausea, vomiting or any other symptoms. Review of systems was otherwise negative. She said she had RSV 2 years ago and was discharged home with 2L of oxygen. She said she still had some of the oxygen at home and so she has been using it for her shortness of breath. Vitals in the ED were BP of 151/91, [place] of 89, RR of 22 and temp of 98.9F. She was saturating at 99% on 4L of oxygen. CBC showed hb of 10.7, wbc of 17.4 and platelets of 121. Chemistry showed sodium of 139, potassium of 3.9 and bicarb of 39. Cr was 0.71.BNP was 312.3. Urine tox showed 3+ bactereia and 25 leucocyte esterase. CXR showed a right lower lobe pneumonia. She is being admitted to be managed for hypoxia due to right middle lobe pneumonia. She was started on IV vancomycin and zosyn in the ED. [facility] Medical History (Updated 12/01/23 @ 14:44 by Annalisa Paul) Non-smoker CPAP (continuous positive airway pressure) dependence On home oxygen therapy Atrial fibrillation Hypertension Asthma Depression Atrial fibrillation with RVR Anticoagulant long-term use Obstructive sleep apnea Congestive heart failure (CHF) Dyslipidemia HTN (hypertension) Paroxysmal atrial fibrillation Morbid obesity with body mass index of 50.0-59.9 in adult Home Medications ???Medication ???Instructions ???Recorded ???Last Taken ???Type furosemide 40 mg tablet 40 mg PO BID diuretic 10/27/13 07/14/16 History sertraline 50 mg tablet 50 mg PO QHS mental health 10/27/13 07/13/16 History digoxin 125 mcg (0.125 mg) tablet 125 mcg PO DAILY heart rate 01/24/16 07/14/16 History (Digox) lisinopril 10 mg tablet 20 mg PO DAILY blood pressure 01/24/16 07/14/16 History metoprolol tartrate 50 mg tablet 100 mg PO BID blood pressure 01/24/16 07/14/16 History potassium chloride 20 mEq 20 meq PO DAILY supplement 01/24/16 07/14/16 History tablet,extended release(part/cryst) (Klor-Con M) atorvastatin 10 mg tablet 10 mg PO QHS cholesterol 07/14/16 07/13/16 History apixaban 5 mg tablet (Eliquis) 5 mg PO BID blood thinner 01/18/22 Unknown History albuterol sulfate 0.63 mg/3 mL 0.63 mg (3 mL) inhalation Q4H PRN 01/22/22 Unknown Rx solution for nebulization shortness of breath or wheezing #75 mL guaifenesin 1,200 mg tablet, 1,200 mg PO BID #10 tabs 01/22/22 Unknown Rx extended release 12 hr (Mucus Relief ER) Allergy/AdvReac Type Severity Reaction Status Date / Time Tetanus Vaccines and Toxoid Allergy Unknown Verified 12/01/23 11:11 (Tetanus Vaccines Toxoid) Family History Grandmother Breast cancer Father CVA (cerebral vascular accident) Surgical History H/O oophorectomy History of appendectomy Social History household members: children and none housing: house number of children: 2 current occupational status: retired pets and animals: Yes (2 dogs/2 cats) Smoking Status: Never smoker alcohol intake: never substance use type: does not use ROS Constitutional Constitutional: Reports chills, fatigue, malaise and weakness; Denies anorexia or fever(s) Eyes Eyes: Denies change in vision ENT HEENT: Denies dysphagia, headache(s), sinus pressure or sore throat Cardiovascular Cardiovascular: Denies chest pain, dyspnea on exertion, edema, lightheadedness, orthopnea, palpitations, paroxysmal nocturnal dyspnea, rapid heart rate or syncope Respiratory/Chest Respiratory/Chest: Reports cough, dyspnea, productive cough, shortness of breath at rest and shortness of breath with exertion; Denies hemoptysis or wheezing Gastrointestinal Gastrointestinal: Denies abdominal pain, constipation, diarrhea, melena, nausea or vomiting Genitourinary Genitourinary: Denies dysuria Neurologic Neurologic: Denies confusion, dizziness, focal w (more content not included)... Normal [facility] L501.4020on 12-01-2023 TROPONIN-I HS 12 pg/mL Normal 3.0-54.[address] [facility] Comment on above: Result Comment: Keegan bashir Note: New Test Units and Gender Specific Reference Ranges. For more information see Policy Stat Procedure [place] High Sensitivity Troponin (TNIH) and attachments. Performed By: #### L 500.2500, L100.0100 #### [facility] [address] [place], [address] L501.5425on 12-01-2023 TROPONIN-I HS 11 pg/mL Normal 3.0-54.[address] [facility] Comment on above: Order Comment: 1Y Result Comment: Plebessy se Note: New Test Units and Gender Specific Reference Ranges. For more information see Policy Stat Procedure [place] High Sensitivity Troponin (TNIH) and attachments. Performed By: #### L 100.0100, L501.5425, L503.6620, L500.2500 ####[facility] [address] [place], [address] Lactic Acidon 12-01-2023 Lactate [Moles/Vol] 1.6 mmol/L Normal 0.4-1.9 [facility] Comment on above: Order Comment: Y Performed By: #### L 500.2500, L100.0100 #### [facility] [address] [place], [address] Legionella Antigen Urineon 0 12-01-2023 LEGU URINE, CLEAN CATCH L pneumo Ag Ur Ql Negative Presumptive negative for Legionella pneumophila serogroup 1 antigen in urine, suggesting no recent or current infection. Legionella Ag, Urine Negative (See interpretation below) Normal [facility] Comment on above: Performed By: #### L 500.2500, L100.0100 #### [facility] [address] [place], [address] M100.678on 12-01-2023 M100.678 Copy of report sent to Infection Control Printer [id number] 12/01/23 1257 MLOLLO. SARS-CoV-2 (COVID 19) A Positive A INFLUENZA A Negative INFLUENZA B Negative RSV PCR Negative Normal [facility] Comment on above: Performed By: #### M 100.678 ####[facility] [address] [place], [address] Strep pneumoniae Antig(UR,CS F)on 12-01-2023 STPAG URINE, CLEAN CATCH Strep pneumoniae Antig(UR,CSF) [] Negative Urine Presumptive negative for pneumococcal pneumonia, suggesting no current or recent pneumococcal infection. Infection due to S pneumoniae cannot be ruled out since the antigen present in the sample may be below the detection limit of the test. Strep pneumo Test Negative URINE (See interpretation below) Normal [facility] Comment on above: Performed By: #### L 500.2500, L100.0100 #### [facility] [address] [place], [address] Urinalysis, Completeon 11-30 AMORPHOUS 1+ Normal [facility] Comment on above: Order Comment: COLLE CTOR TO SPECIFY Performed By: #### L 400.0001 #### [facility] [address] [place], [address] RBC 0-5 SEEN Normal 0-[address] [facility] Comment on above: Order Comment: COLLE CTOR TO SPECIFY Performed By: #### L 400.0001 #### [facility] [address] [place], [address] WBC 0-5 SEEN Normal 0-[address] [facility] Comment on above: Order Comment: GRIFFIN CTOR TO SPECIFY Performed By: #### L 400.0001 #### [facility] [address] [place], [address] BACTERIA 3+ /hpf Normal None Seen [facility] Comment on above: Order Comment: GRIFFIN CTOR TO SPECIFY Performed By: #### L 400.0001 #### [facility] [address] [place], [address] EPI,SQUAMOUS 0-5 SEEN Normal 5-[address] [facility] Comment on above: Order Comment: GRIFFIN CTOR TO SPECIFY Performed By: #### L 400.0001 #### [facility] [address] [place], [address] Mucus Ql (Urine sed) 0 SEEN Normal [facility] Comment on above: Order Comment: COLLE CTOR TO SPECIFY Performed By: #### L 400.0001 #### [facility] [address] [place], [address] 36on 11-24-2023 36 Normal [facility] 36on 11-17-2023 [address] [facility] 36 Normal [facility] 36on 11-16-2023 36 Normal [facility] 36 Placed call to patie nt. Two patient identifers confirmed. Was able to speak to patient. All concerns in message have been addressed. No questions at this time. Call ended [facility] [address] [facility] 36on 10-06-2023 36 RX loaded Next ov 11/17/[address] [facility] [address] [facility] 36on 10-04-[address] [facility] 36 RX loaded Next ov 11/17/[address] [facility] [address] [facility] [address] [facility] 36 Patient called to as k if she should take Antibiotic before having four teeth extracted by [facility] on 10/21/23. [facility] 36on 09-07-[address] [facility] 36on 08-19-[address] [facility] ECG 12 lead - CLINIC PERFORM EDon 08-11-2023 [facility] DBT Breast - bilateral scree ningon 08-02-2023 No mammographic evid ence of malignancy. ASSESSMENT: Category 1 Negative RECOMMENDATION: Routine screening mammogram in 1 year. Bilateral CANCER RISK ASSESSMENT: This risk assessment is based on patient provided information collected in a risk survey taken at the time of this examination. LIFETIME BREAST CANCER RISK: Fidencioer-Trishzick: 6.2% - If greater than or equal to 20%, consider annual mammogram and annual screening Breast MRI or follow up in high risk clinic. Is the patient at elevated risk based on the HBOC criteria? No (Hereditary Breast and Ovarian Cancer) - If Yes, consider genetic counseling and testing with high risk follow up. Is the patient at elevated risk based on the Meeks Syndrome criteria? No - If Yes, consider genetic counseling and testing with high risk follow up. Report Dictated on Electronically Signed By: Petra García MD Electronically Signed Date/Time: 08/02/2023 10:33 AM [facility] [place] [facility] Patient Name: ALTA MOYA : 1950 Exam Date/Time: 08/02/2023 10:21 Procedure: BI MAMMOGRAM SCREENING TOMOSYNTHESIS BILATERAL Ordering Provider: IBARRA EUGENE Reason For Exam: screen Image views: 2D Bilateral CC and MLO views were acquired. 3D Bilateral CC and MLO views were acquired. Images were reviewed with CAD. Markings on images: BB's = Nipples; skin lesions [place] = Palpable Line = Scar COMPARISON: 2021; 2018 TISSUE DENSITY: BIRADS B - There are scattered fibroglandular densities. FINDINGS: No suspicious masses, architectural distortions or suspiciously clustered microcalcifications are identified. There are no significant changes when compared with prior studies. [facility] [facility] Petra García MD - 08/02/2023 [facility] Name: [facility] 1950 [id number] Exam Date/Time: 08/02/2023 10:21 Procedure: BI MAMMOGRAM SCREENING TOMOSYNTHESIS BILATERAL Ordering Provider: IBARRA EUGENE Reason For Exam: screen Image views: 2D Bilateral CC and MLO views were acquired. 3D Bilateral CC and MLO views were acquired. Images were reviewed with CAD. Markings on images: BB's = Nipples; skin lesions [place] = Palpable Line = Scar COMPARISON: 2021; 2018 TISSUE DENSITY: BIRADS B - There are scattered fibroglandular densities. FINDINGS: No suspicious masses, architectural distortions or suspiciously clustered microcalcifications are identified. There are no significant changes when compared with prior studies. IMPRESSION: No mammographic evidence of malignancy. ASSESSMENT: Category 1 Negative RECOMMENDATION: Routine screening mammogram in 1 year. Bilateral CANCER RISK ASSESSMENT: This risk assessment is based on patient provided information collected in a risk survey taken at the time of this examination. LIFETIME BREAST CANCER RISK: Fidencioer-Carenck: 6.2% - If greater than or equal to 20%, consider annual mammogram and annual screening Breast MRI or follow up in high risk clinic. Is the patient at elevated risk based on the HBOC criteria? No (Hereditary Breast and Ovarian Cancer) - If Yes, consider genetic counseling and testing with high risk follow up. Is the patient at elevated risk based on the Meeks Syndrome criteria? No - If Yes, consider genetic counseling and testing with high risk follow up. Report Dictated on Electronically Signed By: Petra García MD Electronically Signed Date/Time: 08/02/2023 10:33 AM EDT [facility] Radiology Study observation (narrative) [facility] DBT Breast - bilateral scree ningOrdered By: Petra García on 08-02-2023 [facility] Work Phone: Digoxin levelon 07-22-2022 Digoxin [Mass/Vol] 1.1 ng/mL 0.8 - 2.0 ng/mL [facility] Interpretation and review of laboratory results Normal [facility] Absolute lymphocyte counton 01-22-2022 Lymphocytes Auto (Unsp spec) [#/Vol] 2.00 10*3/uL 0.83-4.[address] [facility] Work Phone: Basophil percentageon 2021 Basophils/100 WBC (Bld) 0.3 % 0-[address] [facility] Work Phone: Chloride [Moles/Vol] 98 mmol/L 98-107 [facility] Work [facility]: Eosinophils/100 WBC (Bld) 0.0 % 0-[address] [facility] Work Phone: Glucose [Mass/Vol] 120 mg/dL 74-106 [facility] Work Phone: Comment on above: Fasting Glucose resu lt from 100 to 125 mg/dL suggests IMPAIRED HOMEOSTASIS per A.D.A. criteria. Neutrophils (Bld) [#/Vol] 12.6 10*3/uL 2.0-7.[address] [facility] Work Phone: Neutrophils/100 WBC (Bld) 62.2 % 47-[address] [facility] Work Phone: Potassium [Moles/Vol] 3.6 mmol/L 3.5-5.1 [facility] Work Phone: Sodium [Moles/Vol] 141 mmol/L 136-145 [facility] Work Phone: WBC (Bld) [#/Vol] 20.3 10*3/uL 4.4-11.0 [facility] Work Phone: Blood erythrocytes count (nu mber/volume)on 01-22-2022 RBC (Bld) [#/Vol] 5.21 10*6/uL 4.2-5.4 [facility] Work Phone: Blood hemoglobin measurement (mass/volume)on 01-22-2022 Hemoglobin (Bld) [Mass/Vol] 14.4 g/dL 12.0-15.[address] [facility] Work Phone: Blood lymphocytes/100 leukoc yteson 01-22-2022 Lymphocytes/100 WBC (Bld) 9.9 % 19-[address] [facility] Work Phone: Blood manual differential co mment interpretation (narrative result)on 01-22-2022 Manual differential comment Willis (Bld) [Interp] SCANNED [facility] Work Phone: Blood monocytes/100 leukocyt eson 01-22-2022 Monocytes/100 WBC (Bld) 25.5 % 0-[address] [facility] Work Phone: Blood platelet mean volumeon 01-22-2022 Platelet mean volume (Bld) [Entitic vol] 12.6 fL 6.2-12.[address] [facility] Work Phone: Determination of erythrocyte mean corpuscular volume (MCV)on 01-22-2022 MCV (RBC) [Entitic vol] 88.7 fL 81-[address] [facility] Work Phone: Glucose Glucometer (BldC) [M ass/Vol]on 01-22-2022 Glucose [Mass/Vol] 221 mg/dL 74-106 [facility] Work Phone: Comment on above: MANAGEMENT OF PATIEN T CARE PER NURSING PROTOCOL Hematocrit Auto (Bld) [Volum e fraction]on 01-22-2022 Hematocrit (Bld) [Volume fraction] 46.2 % 37-[address] [facility] Work Phone: Laboratory - Chemistry and C hemistry - challengeon 01-22-2022 CO2 [Moles/Vol] 35.0 mmol/L 21.0-32.[address] [facility] Work Phone: Urea nitrogen/Creatinine [Mass ratio] 32.3 mg/mg 10-[address] [facility] Work Phone: Laboratory - Hematology and Cell countson 01-22-2022 Erythrocyte distribution width (RBC) [Entitic vol] 47.0 fL 35.1-43.[address] [facility] Work Phone: Erythrocyte distribution width (RBC) [Ratio] 14.5 % 11.6-14.[address] [facility] Work Phone: Immature granulocytes/100 WBC (Bld) 2.100 % 0.0-0.[address] [facility] Work Phone: Comment on above: IG% - Immature Granu locytes (promyelocytes, myelocytes and metamyelocytes) > 1% indicates that a LEFT SHIFT is Present. MCH (RBC) [Entitic mass] 27.6 pg 27.0-32.[address] [facility] Work Phone: Nucleated RBC/100 WBC (Bld) [Ratio] 0 % 0-[address] [facility] Work Phone: MCHC Auto (RBC) [Mass/Vol]on 01-22-2022 MCHC (RBC) [Mass/Vol] 31.2 g/dL 32-36 [facility] Work Phone: No Panel Informationon 01-22 Estimated Creatinine Clearance Calc 110.28 ml/min [facility] Work Phone: Estimated GFR (MDRD) Amer 83 mL/min >[address] [facility] Work Phone: Comment on above: GFR Calc Estimated GFR (MDRD) Non-Af Amer 69 mL/min >[address] [facility] Work Phone: Comment on above: Non- GFR Calc Platelets bldon 01-22-2022 Platelets (Bld) [#/Vol] 152 10*3/uL 150-[address] [facility] Work Phone: Review by pathologiston 01-13 Pathologist review Willis (Unsp spec) [Interp] Reviewed [facility] Work Phone: Comment on above: Previous reported re sult: Cindi tam Edited by: VICK on 01/22/22:1540Leukocytosis. Clinical correlation necessary.Mehul Robins M.D. 01/22/22 AMENDED REPORT 01/22/22 1540 PATH REV previously reported as: Cindi tam Serum or plasma calcium betzaida urement (mass/volume)on 01-22-2022 Calcium [Mass/Vol] 9.2 mg/dL 8.5-10.1 [facility] Work Phone: Serum or plasma creatinine m easurement (mass/volume)on 01-22-2022 Creatinine [Mass/Vol] 0.87 mg/dL 0.55-1.02 [facility] Work Phone: Comment on above: The validity of the calculated GFR & GFRAA in patients over 70 years has not been determined. Clinical correlation is essential. Serum or plasma urea nitroge n measurement (mass/volume)on 01-22-2022 Urea nitrogen [Mass/Vol] 28 mg/dL 7-[address] [facility] Work Phone: Thin prep Papanicolaou smear with manual screeningon 01-22-2022 Thin prep Papanicolaou smear with manual screening 8 5-[address] [facility] Work Phone: Basophil percentageon 2021 Basophil percentage 3.2 mg/dL 2.5-4.9 [facility] Work Phone: Laboratory - Chemistry and C hemistry - challengeon 01-19-2022 Magnesium [Mass/Vol] 2.5 mg/dL 1[facility]6-2.6 [facility] Work Phone: No Panel Informationon 01-19 Thyroid Stimulating Hormone (TSH) 0.74 uIU/mL 0.358-3.[address] [facility] Work Phone: Absolute lymphocyte counton 01-18-2022 Lymphocytes Auto (Unsp spec) [#/Vol] 1.37 10*3/uL 0.83-4.[address] [facility] Work Phone: Assessment of wrist artery p atency prior to arterial punctureon 01-18-2022 Arterial patency Wrist artery --pre arterial puncture Positive [facility] Work Phone: Base excesson 01-18-2022 Base excess Calc (BldV) [Moles/Vol] 5 mmol/L -2-[address] [facility] Work Phone: Basophil percentageon 2021 Basophil percentage 31.1 mmol/L 22-26 [facility] Work Phone: Basophils/100 WBC (Bld) 87 % 95-[address] [facility] Work Phone: [phone] Basophils/100 WBC (Bld) 0.3 % 0-[address] [facility] Work Phone: Bilirubin [Mass/Vol] 1.10 mg/dL 0.20-1.00 [facility] Work Phone: Comment on above: For patients on eltr ombopag therapy, use of Dimension [place] TBIL is not recommended. Chloride [Moles/Vol] 100 mmol/L 98-107 [facility] Work Phone: Eosinophils/100 WBC (Bld) 0.3 % 0-[address] [facility] Work Phone: [phone] Glucose [Mass/Vol] 172 mg/dL 74-106 [facility] Work Phone: Comment on above: Fasting Glucose resu lt greater than or equal to 126 mg/dL suggests DIABETES MELLITUS per A.D.A. criteria. Lactate [Moles/Vol] 1.5 mmol/L 0.4-2.0 [facility] Work Phone: Neutrophils (Bld) [#/Vol] 9.6 10*3/uL 2.0-7.[address] [facility] Work Phone: Neutrophils/100 WBC (Bld) 67.6 % 47-[address] [facility] Work Phone: Potassium [Moles/Vol] 4.3 mmol/L 3.5-5.1 [facility] Work Phone: Protein [Mass/Vol] 8.4 g/dL 6.4-8.2 [facility] Work Phone: Sodium [Moles/Vol] 140 mmol/L 136-145 [facility] Work Phone: WBC (Bld) [#/Vol] 14.1 10*3/uL 4.4-11.0 [facility] Work Phone: Blood erythrocytes count (nu mber/volume)on 01-18-2022 RBC (Bld) [#/Vol] 5.15 10*6/uL 4.2-5.4 [facility] Work Phone: Blood hemoglobin measurement (mass/volume)on 01-18-2022 Hemoglobin (Bld) [Mass/Vol] 14.3 g/dL 12.0-15.[address] [facility] Work Phone: Blood lymphocytes/100 leukoc yteson 01-18-2022 Lymphocytes/100 WBC (Bld) 9.7 % 19-[address] [facility] Work Phone: Blood manual differential co mment interpretation (narrative result)on 01-18-2022 Manual differential comment Willis (Bld) [Interp] SCANNED [facility] Work Phone: Blood monocytes/100 leukocyt eson 01-18-2022 Monocytes/100 WBC (Bld) 21.4 % 0-[address] [facility] Work Phone: Blood platelet mean volumeon 01-18-2022 Platelet mean volume (Bld) [Entitic vol] 12.6 fL 6.2-12.[address] [facility] Work Phone: CO2 (BldA) [Partial pressure ]on 01-18-2022 CO2 (Bld) [Partial pressure] 58.6 mm[Hg] 35-[address] [facility] Work Phone: Determination of erythrocyte mean corpuscular volume (MCV)on 01-18-2022 MCV (RBC) [Entitic vol] 87.8 fL 81-[address] [facility] Work Phone: Hematocrit Auto (Bld) [Volum e fraction]on 01-18-2022 Hematocrit (Bld) [Volume fraction] 45.2 % 37-[address] [facility] Work Phone: Laboratory - Chemistry and C hemistry - challengeon 01-18-2022 ALP [Catalytic activity/Vol] 88 U/L 45-[address] [facility] Work Phone: ALT [Catalytic activity/Vol] 23 U/L 13-[address] [facility] Work Phone: CO2 [Moles/Vol] 31.0 mmol/L 21.0-32.[address] [facility] Work Phone: Globulin (S) [Mass/Vol] 4.1 g/dL 2.2-4.[address] [facility] Work Phone: Urea nitrogen/Creatinine [Mass ratio] 21.3 mg/mg 10-[address] [facility] Work Phone: Laboratory - Hematology and Cell countson 01-18-2022 Erythrocyte distribution width (RBC) [Entitic vol] 46.1 fL 35.1-43.[address] [facility] Work Phone: Erythrocyte distribution width (RBC) [Ratio] 14.4 % 11.6-14.[address] [facility] Work Phone: Immature granulocytes/100 WBC (Bld) 0.700 % 0.0-0.[address] [facility] Work Phone: Comment on above: IG% - Immature Granu locytes (promyelocytes, myelocytes and metamyelocytes) > 1% indicates that a LEFT SHIFT is Present. MCH (RBC) [Entitic mass] 27.8 pg 27.0-32.[address] [facility] Work Phone: Nucleated RBC/100 WBC (Bld) [Ratio] 0 % 0-[address] [facility] Work Phone: MCHC Auto (RBC) [Mass/Vol]on 01-18-2022 MCHC (RBC) [Mass/Vol] 31.6 g/dL 32-36 [facility] Work Phone: No Panel Informationon 01-18 Blood Gas Liter Flow 3.0 /min [facility] Work Phone: Blood Gas Sample Site R Radial [facility] Work Phone: Blood Gas Specimen Type ART [facility] Work Phone: Blood Gas Total CO2 33 mmol/L [facility] Work Phone: Oxygen Delivery Device Cannula [facility] Work Phone: Estimated Creatinine Clearance Calc 98.44 ml/min [facility] Work Phone: Estimated GFR (MDRD) Amer 71 mL/min >[address] [facility] Work Phone: Comment on above: GFR Calc Estimated GFR (MDRD) Non-Af Amer 59 mL/min >[address] [facility] Work Phone: Comment on above: Non- GFR Calc Oxygen (BldA) [Partial press ure]on 01-18-2022 Oxygen (Bld) [Partial pressure] 59 mmHG 75-[address] [facility] Work Phone: Platelets bldon 01-18-2022 Platelets (Bld) [#/Vol] 154 10*3/uL 150-[address] [facility] Work Phone: Review by pathologiston Pathologist review Willis (Unsp spec) [Interp] May anel [facility] Work Phone: Serum or plasma albumin betzaida urement (mass/volume)on 01-18-2022 Albumin [Mass/Vol] 4.3 g/dL 3.2-5.[facility] Work Phone: Serum or plasma albumin/glob ulin mass ratioon 01-18-2022 Albumin/Globulin [Mass ratio] 1.0 {ratio} 0.9-2.[address] [facility] Work Phone: Serum or plasma calcium betzaida urement (mass/volume)on 01-18-2022 Calcium [Mass/Vol] 9.9 mg/dL 8.5-10.1 [facility] Work Phone: Serum or plasma creatinine m easurement (mass/volume)on 01-18-2022 Creatinine [Mass/Vol] 0.99 mg/dL 0.55-1.02 [facility] Work Phone: Comment on above: The validity of the calculated GFR & GFRAA in patients over 70 years has not been determined. Clinical correlation is essential. Serum or plasma urea nitroge n measurement (mass/volume)on 01-18-2022 Urea nitrogen [Mass/Vol] 21 mg/dL 7-[address] [facility] Work Phone: Thin prep Papanicolaou smear with manual screeningon 01-18-2022 Thin prep Papanicolaou smear with manual screening 12 U/L 15-[address] [facility] Work Phone: Thin prep Papanicolaou smear with manual screening 9 5-[address] [facility] Work Phone: Whole blood hemoglobin A1c/t otal hemoglobin ratio (mass fraction)on 01-18-2022 HbA1c (Bld) [Mass fraction] 5.9 % 3.8-5.[address] [facility] Work Phone: Comment on above: Normal < 5.7 % Predi abetic 5.7 - 6.4 % Diabetic >or= 6.5 % Please note range changes. pH measurementon 01-18-2022 pH (Unsp spec) 7.33 [pH] 7.35-7.[address] [facility] Work Phone: Prothrombin Timeon 2 INR 1.8 High 0.9-1.1 [facility] Comment on above: Result Comment: Hong mmended Anticoagulant Therapy: SEE BELOW ----- INR of 2.0 - 3.0 : - Prophylaxis of Venous Thrombosis (high-risk surgery) - Treatment of Venous Thrombosis - Treatment of Pulmonary Embolism (Includes tissue heart valves, Acute Myocardial Infarction to prevent systemic embolism, Valvular Heart Disease, and Atrial Fibrillation) ----- INR of 2.5 - 3.5 : - Mechanical Prosthetic Valves (high risk) - If oral anticoagulant therapy is used to prevent Myocardial Infarction Performed By: #### L IPD2, JALIL3, MD MANISHIFF #### [facility] [address] [place] [address] PT Coag (PPP) [Time] 18.8 s High 9.0-12.0 [facility] Comment on above: Result Comment: . Performed By: #### L IPD2, CMP3, MD MANISHIFF #### [facility] [address] [place] [address] Protime-INRon 12-01-2021 INR Coag (Bld) [Relative time] 1.8 {INR} High [facility] Comment on above: Recommended Anticoag ulant Therapy: SEE BELOW ----- INR of 2.0 - 3.0 : - Prophylaxis of Venous Thrombosis (high-risk surgery) - Treatment of Venous Thrombosis - Treatment of Pulmonary Embolism (Includes tissue heart valves, Acute Myocardial Infarction to prevent systemic embolism, Valvular Heart Disease, and Atrial Fibrillation) ----- INR of 2.5 - 3.5 : - Mechanical Prosthetic Valves (high risk) - If oral anticoagulant therapy is used to prevent Myocardial Infarction Interpretation and review of laboratory results Abnormal [facility] PT Coag (PPP) [Time] 18.8 s High 9 - 12 s [facility] Comment on above: . Test Performed by [facility], [address] LAB [facility] Prothrombin Timeon INR 4.6 Critically high 0.9-1.1 [facility] Comment on above: Result Comment: veri fied by repeat analysis Recommended Anticoagulant Therapy: SEE BELOW ----- INR of 2.0 - 3.0 : - Prophylaxis of Venous Thrombosis (high-risk surgery) - Treatment of Venous Thrombosis - Treatment of Pulmonary Embolism (Includes tissue heart valves, Acute Myocardial Infarction to prevent systemic embolism, Valvular Heart Disease, and Atrial Fibrillation) ----- INR of 2.5 - 3.5 : - Mechanical Prosthetic Valves (high risk) - If oral anticoagulant therapy is used to prevent Myocardial Infarction Performed By: #### P T #### [facility] [address] [place] [address] PT Coag (PPP) [Time] 45.7 s High 9.0-12.0 [employer] Comment on above: Result Comment: . Performed By: #### P T #### [facility] [address] [place] [address] Echo 2D Doppler Coloron TRANSTHORACIC ECHOCARDIOGRAM PATIENT: Alta Baker STUDY DATE: 10/13/2021 : 1950 AGE: 71 HT/WT: 149.9 cm (59 119.3 kg in) (262.4 lb) GENDER: F BP: 130 / 82 LOCATION: [facility] STATUS: *ORDERING PHYSICIAN: * Benita Moon *READING PHYSICIAN: * Miranda Morris, FranciscoKNOCKOUT WORKER: * MD Shayna Rice INDICATIONS: Eval mitral stenosis if any?, wanting to switch to [facility], 2017 mild mitral stenosis. CONCLUSIONS SUMMARY: 1. Technically difficult study. 2. Left ventricle: Systolic function is normal by the biplane method of disks. The estimated ejection fraction is 59%. 3. Right ventricle: The cavity size is normal. Systolic function is mildly decreased. Right ventricular systolic pressure is moderately to severely increased. The estimated peak pressure is 63 mm Hg. 4. Mitral valve: There is no evidence for stenosis. 5. Tricuspid valve: There is moderate, 2+ regurgitation directed eccentrically. 6. Inferior vena cava: The vessel is dilated. The IVC collapses by less than 50% with inspiration, consistent with elevated central venous pressure. STUDY DATA: Complete transthoracic echocardiogram. Procedure: Image quality was adequate. The study was technically limited due to body habitus. M-mode, complete 2D, complete spectral Doppler, and color flow Doppler images were acquired and archived for permanent storage and are available for subsequent review. Study status: Routine. Patient status: Outpatient. ECG RHYTHM: Atrial fibrillation FINDINGS LEFT VENTRICLE: The cavity size is normal. Wall thickness is normal. Systolic function is normal by the biplane method of disks. The estimated ejection fraction is 59%. There are no regional wall motion abnormalities. Unable to assess LV diastolic function due to atrial fibrillation RIGHT VENTRICLE: The cavity size is normal. Systolic function is mildly decreased. Right ventricular systolic pressure is moderately to severely increased. The estimated peak pressure is 63 mm Hg. VENTRICULAR SEPTUM: Abnormal septal motion due to intraventricular conduction delay. There is no evidence of a ventricular septal defect. LEFT ATRIUM: The atrium is normal in size. RIGHT ATRIUM: The atrium is mildly dilated. ATRIAL SEPTUM: Color Doppler shows no shunt. MITRAL VALVE: Structurally normal valve. Doppler: There is no evidence for stenosis. There is trivial, less than 1+ regurgitation. The peak diastolic gradient is 11 mm Hg. AORTIC VALVE: Structurally normal valve. Trileaflet. Doppler: There is mild, 1+ regurgitation. TRICUSPID VALVE: Structurally normal valve. Doppler: There is moderate, 2+ regurgitation directed eccentrically. PULMONIC VALVE: Structurally normal valve. Doppler: There is trivial, less than 1+ regurgitation. AORTA: The aorta is normal. PULMONARY ARTERY: Main pulmonary artery: Normal. PERICARDIUM: There is no pericardial effusion. SYSTEMIC VEINS: Inferior vena cava: The vessel is dilated. The IVC collapses by less than 50% with inspiration, consistent with elevated central venous pressure. Measurements Value Reference Aortic root ID 3.0 cm <4.4 Aortic root ID, ED (sinus) 2.7 cm <4.4 Aortic root ID, STJ, ED 2.4 cm 2.0 - 3.2 Aortic root ID/bsa, STJ, ED 1.1 cm/m^2 1.1 - 1.9 Left ventricle Value Reference LV ID, ED 4.4 cm 3.8 - 5.2 LV ID, ES 3.3 cm 2.2 - 3.5 LV ID/bsa, ED (L) 1.9 cm/m^2 2.3 - 3.1 LV ID/bsa, ES 1.4 cm/m^2 1.3 - 2.1 LV PW thickness, ED (H) 1.0 cm 0.6 - 0.9 LV PW/LV ID ratio, ED 0.23 --------- LV wall mass (H) 172 g 66 - 150 LV wall mass/bsa 74 g/m^2 44 - 88 Stroke volume/bsa, 1-p A2C 10.3 ml/m^2 --------- LV end-diastolic volume, 1-p A4C 62 ml 48 - 140 LV end-systolic volume, 1-p A4C 28 ml 12 - 6 (more content not included)... [facility] Miranda Morris MD - 10/13/2021 TRANSTHORACIC ECHOCARDIOGRAM PATIENT: Alta Baker STUDY DATE: 10/13/2021 : 1950 AGE: 71 HT/WT: 149.9 cm (59 119.3 kg in) (262.4 lb) GENDER: F BP: 130 / 82 LOCATION: [facility] STATUS: *ORDERING PHYSICIAN: * Samad, Benita *READING PHYSICIAN: * Miranda Morris, *KNOCKOUT WORKER: * MD Shayna Rice INDICATIONS: Eval mitral stenosis if any?, wanting to switch to [facility], 2017 mild mitral stenosis. CONCLUSIONS SUMMARY: 1. Technically difficult study. 2. Left ventricle: Systolic function is normal by the biplane method of disks. The estimated ejection fraction is 59%. 3. Right ventricle: The cavity size is normal. Systolic function is mildly decreased. Right ventricular systolic pressure is moderately to severely increased. The estimated peak pressure is 63 mm Hg. 4. Mitral valve: There is no evidence for stenosis. 5. Tricuspid valve: There is moderate, 2+ regurgitation directed eccentrically. 6. Inferior vena cava: The vessel is dilated. The IVC collapses by less than 50% with inspiration, consistent with elevated central venous pressure. STUDY DATA: Complete transthoracic echocardiogram. Procedure: Image quality was adequate. The study was technically limited due to body habitus. M-mode, complete 2D, complete spectral Doppler, and color flow Doppler images were acquired and archived for permanent storage and are available for subsequent review. Study status: Routine. Patient status: Outpatient. ECG RHYTHM: Atrial fibrillation FINDINGS LEFT VENTRICLE: The cavity size is normal. Wall thickness is normal. Systolic function is normal by the biplane method of disks. The estimated ejection fraction is 59%. There are no regional wall motion abnormalities. Unable to assess LV diastolic function due to atrial fibrillation RIGHT VENTRICLE: The cavity size is normal. Systolic function is mildly decreased. Right ventricular systolic pressure is moderately to severely increased. The estimated peak pressure is 63 mm Hg. VENTRICULAR SEPTUM: Abnormal septal motion due to intraventricular conduction delay. There is no evidence of a ventricular septal defect. LEFT ATRIUM: The atrium is normal in size. RIGHT ATRIUM: The atrium is mildly dilated. ATRIAL SEPTUM: Color Doppler shows no shunt. MITRAL VALVE: Structurally normal valve. Doppler: There is no evidence for stenosis. There is trivial, less than 1+ regurgitation. The peak diastolic gradient is 11 mm Hg. AORTIC VALVE: Structurally normal valve. Trileaflet. Doppler: There is mild, 1+ regurgitation. TRICUSPID VALVE: Structurally normal valve. Doppler: There is moderate, 2+ regurgitation directed eccentrically. PULMONIC VALVE: Structurally normal valve. Doppler: There is trivial, less than 1+ regurgitation. AORTA: The aorta is normal. PULMONARY ARTERY: Main pulmonary artery: Normal. PERICARDIUM: There is no pericardial effusion. SYSTEMIC VEINS: Inferior vena cava: The vessel is dilated. The IVC collapses by less than 50% with inspiration, consistent with elevated central venous pressure. Measurements Value Reference Aortic root ID 3.0 cm <4.4 Aortic root ID, ED (sinus) 2.7 cm <4.4 Aortic root ID, STJ, ED 2.4 cm 2.0 - 3.2 Aortic root ID/bsa, STJ, ED 1.1 cm/m^2 1.1 - 1.9 Left ventricle Value Reference LV ID, ED 4.4 cm 3.8 - 5.2 LV ID, ES 3.3 cm 2.2 - 3.5 LV ID/bsa, ED (L) 1.9 cm/m^2 2.3 - 3.1 LV ID/bsa, ES 1.4 cm/m^2 1.3 - 2.1 LV PW thickness, ED (H) 1.0 cm 0.6 - 0.9 LV PW/LV ID ratio, ED 0.23 --------- LV wall mass (H) 172 g 66 - 150 LV wall mass/bsa 74 g/m^2 44 - 88 Stroke volume/bsa, 1-p A2C 10.3 ml/m^2 --------- LV end-diastolic volume, 1-p A4C 62 ml 48 - 140 LV end-systolic volume, 1-p A4C 28 ml 12 - 60 LV end-diastolic volume, 2-p 54 ml 46 - 106 LV end-systolic volume, 2-p 22 ml 14 - 42 LV ejection fraction, 2-p 59 % 54 - 74 LV E/e', lateral 23.9 --------- LV E/e', medial 21.8 --------- LV E/e', average 22.8 --------- Ventricular septum Value Reference IVS thickness, ED (H) 1.2 cm 0.6 - 0.9 LVOT Value Reference LVOT ID, A-P 1.5 cm --------- LVOT mean velocity, S 0.6 m/sec --------- LVOT peak gradient, S 3 mm Hg --------- Stroke volume (SV), LVOT DP 32 ml --------- Stroke index (SV/bsa), LVOT DP 14 ml/m^2 --------- Mitral valve Value Reference Mitral E-wave peak velocity 1.6 m/sec --------- Mi (more content not included)... [employer] Work Phone: Echo 2D Doppler ColorOrdered By: Miranda Morris on 10-13-2021 [employer] Work Phone: Echo Complete w/wo Contrasto n 10-13-2021 Echo Complete w/wo Contrast Patient Name: ALTA BAKER Ultrasound ACCESSION EXAM DATE/TIME PROCEDURE ORDERING PROVIDER [id number] 10/13/2021 15:56 EDT Echo Complete w/wo [id number] -BENITA MOON Reason For Exam (Echo Complete w/wo Contrast) evaluate mitral stenosis if any? wanting to switch to [facility] ((2017 mild mitral stenosis) Report TRANSTHORACIC ECHOCARDIOGRAM PATIENT: Alta Baker STUDY DATE: 10/13/2021 : 1950 AGE: 71 HT/WT: 149.9 cm (59 119.3 kg in) (262.4 lb) GENDER: F BP: 130 / 82 LOCATION: [facility] STATUS: *ORDERING PHYSICIAN: * Benita Moon *READING PHYSICIAN: * Miranda Morris, *KNOCKOUT WORKER: * MD Shayna Rice INDICATIONS: Eval mitral stenosis if any?, wanting to switch to [facility], 2017 mild mitral stenosis. CONCLUSIONS SUMMARY: 1. Technically difficult study. 2. Left ventricle: Systolic function is normal by the biplane method of disks. The estimated ejection fraction is 59%. 3. Right ventricle: The cavity size is normal. Systolic function is mildly decreased. Right ventricular systolic pressure is moderately to severely increased. The estimated peak pressure is 63 mm Hg. 4. Mitral valve: There is no evidence for stenosis. 5. Tricuspid valve: There is moderate, 2+ regurgitation directed eccentrically. 6. Inferior vena cava: The vessel is dilated. The IVC collapses by less than 50% with inspiration, consistent with elevated central venous pressure. STUDY DATA: Complete transthoracic echocardiogram. Procedure: Image quality was adequate. The study was technically limited due to body habitus. M-mode, complete 2D, complete spectral Doppler, and color flow Doppler images were acquired and archived for permanent storage and are available for subsequent review. Study status: Routine. Patient status: Outpatient. ECG RHYTHM: Atrial fibrillation Ultrasound Report FINDINGS LEFT VENTRICLE: The cavity size is normal. Wall thickness is normal. Systolic function is normal by the biplane method of disks. The estimated ejection fraction is 59%. There are no regional wall motion abnormalities. Unable to assess LV diastolic function due to atrial fibrillation RIGHT VENTRICLE: The cavity size is normal. Systolic function is mildly decreased. Right ventricular systolic pressure is moderately to severely increased. The estimated peak pressure is 63 mm Hg. VENTRICULAR SEPTUM: Abnormal septal motion due to intraventricular conduction delay. There is no evidence of a ventricular septal defect. LEFT ATRIUM: The atrium is normal in size. RIGHT ATRIUM: The atrium is mildly dilated. ATRIAL SEPTUM: Color Doppler shows no shunt. MITRAL VALVE: Structurally normal valve. Doppler: There is no evidence for stenosis. There is trivial, less than 1+ regurgitation. The peak diastolic gradient is 11 mm Hg. AORTIC VALVE: Structurally normal valve. Trileaflet. Doppler: There is mild, 1+ regurgitation. TRICUSPID VALVE: Structurally normal valve. Doppler: There is moderate, 2+ regurgitation directed eccentrically. PULMONIC VALVE: Structurally normal valve. Doppler: There is trivial, less than 1+ regurgitation. AORTA: The aorta is normal. PULMONARY ARTERY: Main pulmonary artery: Normal. PERICARDIUM: There is no pericardial effusion. SYSTEMIC VEINS: Inferior vena cava: The vessel is dilated. The IVC collapses by less than 50% with inspiration, consistent with elevated central venous pressure. Measurements Value Reference Aortic root ID 3.0 cm <4.4 Aortic root ID, ED (sinus) 2.7 cm <4.4 Aortic root ID, STJ, ED 2.4 cm 2.0 - 3.2 Aortic root ID/bsa, STJ, ED 1.1 cm/m^2 1.1 - 1.9 Left ventricle Value Reference LV ID, ED 4.4 cm 3.8 - 5.2 LV ID, ES 3.3 cm 2.2 - 3.5 LV ID/bsa, ED (L) 1.9 cm/m^2 2.3 - 3.1 LV ID/bsa, ES 1.4 cm/m^2 1.3 - 2.1 LV PW thickness, ED (H) 1.0 cm 0.6 - 0.9 LV PW/LV ID ratio, ED 0.23 --------- LV wall mass (H) 172 g 66 - 150 LV wall mass/bsa 74 g/m^2 44 - 88 Stroke volume/bsa, 1-p A2C 10.3 ml/m^2 --------- LV end-diastolic volume, 1-p A4C 62 ml 48 - 140 LV end-systolic volume, 1-p A4C 28 ml 12 - 60 LV end-diastolic volume, 2-p 54 ml 46 - 106 LV end-systolic volume, 2-p 22 ml 14 - 42 LV ejection fraction, 2-p 59 % 54 - 74 LV E/e', lateral 23.9 --------- LV E/e', medial 21.8 --------- LV E/e', average 22.8 --------- Ventricular septum Value Reference Ultrasound Report IVS thickness, ED (H) 1.2 cm 0.6 - 0.9 LVOT Imer (more content not included)... Normal [facility] Digoxinon 09-29-2021 Digoxin [Mass/Vol] 0.94 ng/mL Normal 0.80-2.00 [facility] Comment on above: Performed By: #### L MILES ESPARZA HEMDF, MDIFF #### [facility] [address] [place] [address] Digoxin Levelon 09-29-2021 Digoxin Lvl 0.94 ng/mL 0.8 - 2 ng/mL [facility] Test Performed by [facility], [address] , [place], [place] [id number] [place] [address] LAB [facility] Prothrombin Timeon INR 2.5 High 0.9-1.1 [facility] Comment on above: Result Comment: Hong mmended Anticoagulant Therapy: SEE BELOW ----- INR of 2.0 - 3.0 : - Prophylaxis of Venous Thrombosis (high-risk surgery) - Treatment of Venous Thrombosis - Treatment of Pulmonary Embolism (Includes tissue heart valves, Acute Myocardial Infarction to prevent systemic embolism, Valvular Heart Disease, and Atrial Fibrillation) ----- INR of 2.5 - 3.5 : - Mechanical Prosthetic Valves (high risk) - If oral anticoagulant therapy is used to prevent Myocardial Infarction Performed By: #### L MILES ESPARZA HEMDF, MDIFF #### [facility] [address] [place] [address] PT Coag (PPP) [Time] 25.7 s High 9.0-12.0 [facility] Comment on above: Result Comment: . Performed By: #### L MILES ESPARZA HEMDF, MDIFF #### [facility] [address] [place] [address] Protime-INRon 09-29-2021 INR Coag (Bld) [Relative time] 2.5 {INR} High [facility] Comment on above: Recommended Anticoag ulant Therapy: SEE BELOW ----- INR of 2.0 - 3.0 : - Prophylaxis of Venous Thrombosis (high-risk surgery) - Treatment of Venous Thrombosis - Treatment of Pulmonary Embolism (Includes tissue heart valves, Acute Myocardial Infarction to prevent systemic embolism, Valvular Heart Disease, and Atrial Fibrillation) ----- INR of 2.5 - 3.5 : - Mechanical Prosthetic Valves (high risk) - If oral anticoagulant therapy is used to prevent Myocardial Infarction Interpretation and review of laboratory results Abnormal [facility] PT Coag (PPP) [Time] 25.7 s High 9 - 12 s [facility] Comment on above: . Test Performed by [facility], [address] , [address] LAB [facility] LUNA DIGITAL DIAGNOSTIC W OR WO CAD RIGHTon 07-24-2021 Patient Name: ALTA MOYA Mammography ACCESSION EXAM DATE/TIME PROCEDURE ORDERING PROVIDER [id number] 07/24/2021 13:40 EDT MG Mammogram Digital YANGLAURA Diagnostic Right CPT code 22078 Reason For Exam (MG Mammogram Digital Diagnostic Right) right breast mass . u/s guided right breast bx Report TIME SINCE LAST MAMMOGRAM: Last mammogram was performed 1 month ago. REASON FOR EXAM: addl eval requested from prior study. PROCEDURE: MG MAMMOGRAM DIGITAL DIAGNOSTIC RIGHT: JULY 24, 2021 - ML and CC view(s) were taken of the right breast. REASON FOR EXAMINATION: Right breast mass CONSENT: The patient presents for ultrasound-guided core biopsy of the right breast. Prior to the procedure red rules were performed which included patient name, date of , and procedure type. Risks, benefits and alternatives were explained to the patient and informed consent was obtained. The patient's prior imaging dated 07/02/2021 was reviewed. PROCEDURE: An audible time out was performed. I washed my hands and wore sterile gloves. The patient was scanned and the lesion in the right breast at the 10:30 to 11:00 position 13 cm from the nipple was redemonstrated. The patient was prepped in the usual sterile fashion. 10 mL of 1% Lidocaine was administered for local anesthesia. A leon was made in the skin and a 14-gauge BARD core biopsy device was advanced into the lesion with ultrasound guidance. 3 core specimens were obtained. Following the procedure a [place] X-shape tissue marker was deployed at the site of biopsy. Hemostasis was obtained by holding manual pressure. The patient tolerated the procedure without immediate complications. Home-going instructions were given and the patient was discharged in good condition. IMPRESSION: Technically successful US guided biopsy of the right breast. . MAMMOGRAM: Following the procedure the patient was transported to the mammography suite and a 2D digital mammogram was performed demonstrating satisfactory placement of the tissue marker at the site of biopsy. Mammography Report Markings on images: BB's = Nipples; skin lesions Open [place] = Palpable Line = Scar Report Dictated on ASSESSMENT: Post procedure mammogram for marker placement US BX BREAST 1ST LESION IMAGE RT: RIGHT BREAST - JULY 24, 2021 - PATHOLOGY RESULTS: PENDING 2D digital mammography imaging was performed and reviewed with CAD. --- Final --- Signed Date and Time: 07/24/2021 3:27 pm Signed by: MD VELÁZQUEZ LAUREN B [facility] Kinsell, Lauren, MD - 07/24/2021 Patient Name: ALTA BAKER Mammography ACCESSION EXAM DATE/TIME PROCEDURE ORDERING PROVIDER [id number] 07/24/2021 13:40 EDT MG Mammogram Digital YANGLAURA BECERRA Diagnostic Right CPT code 50665 Reason For Exam (MG Mammogram Digital Diagnostic Right) right breast mass . u/s guided right breast bx Report TIME SINCE LAST MAMMOGRAM: Last mammogram was performed 1 month ago. REASON FOR EXAM: addl eval requested from prior study. PROCEDURE: MG MAMMOGRAM DIGITAL DIAGNOSTIC RIGHT: JULY 24, 2021 - ML and CC view(s) were taken of the right breast. REASON FOR EXAMINATION: Right breast mass CONSENT: The patient presents for ultrasound-guided core biopsy of the right breast. Prior to the procedure red rules were performed which included patient name, date of , and procedure type. Risks, benefits and alternatives were explained to the patient and informed consent was obtained. The patient's prior imaging dated 07/02/2021 was reviewed. PROCEDURE: An audible time out was performed. I washed my hands and wore sterile gloves. The patient was scanned and the lesion in the right breast at the 10:30 to 11:00 position 13 cm from the nipple was redemonstrated. The patient was prepped in the usual sterile fashion. 10 mL of 1% Lidocaine was administered for local anesthesia. A leon was made in the skin and a 14-gauge BARD core biopsy device was advanced into the lesion with ultrasound guidance. 3 core specimens were obtained. Following the procedure a [place] X-shape tissue marker was deployed at the site of biopsy. Hemostasis was obtained by holding manual pressure. The patient tolerated the procedure without immediate complications. Home-going instructions were given and the patient was discharged in good condition. IMPRESSION: Technically successful US guided biopsy of the right breast. . MAMMOGRAM: Following the procedure the patient was transported to the mammography suite and a 2D digital mammogram was performed demonstrating satisfactory placement of the tissue marker at the site of biopsy. Mammography Report Markings on images: BB's = Nipples; skin lesions [place] = Palpable Line = Scar Report Dictated on ASSESSMENT: Post procedure mammogram for marker placement US BX BREAST 1ST LESION IMAGE RT: RIGHT BREAST - JULY 24, 2021 - PATHOLOGY RESULTS: PENDING 2D digital mammography imaging was performed and reviewed with CAD. --- Final --- Signed Date and Time: 07/24/2021 3:27 pm Signed by: MD EBER, ALIZE Wilson [facility] Work Phone: [facility] Work Phone: Radiology Study observation (narrative) [facility] Work Phone: MG Mammogram Digital Diagnos tic Righton 07-24-2021 MG Mammogram Digital Diagnostic Right [facility]: [id number] ACCESSION EXAM DATE/TIME PROCEDURE ORDERING PROVIDER [id number] 07/24/2021 13:40 EDT MG Mammogram Digital LAURA YANG Diagnostic Right CPT code 84395 Reason For Exam (MG Mammogram Digital Diagnostic Right) right breast mass . u/s guided right breast bx Addendum ADDENDUM: August 04, 2021: This addendum is being provided to report the pathology results and recommendation for the previous report. August 04, 2021: This addendum is being provided to add pathology results and concordance which for technical reasons, was omitted from the previous addendum.. TIME SINCE LAST MAMMOGRAM: Last mammogram was performed 1 month ago. REASON FOR EXAM: addl eval requested from prior study. PROCEDURE: US BX BREAST 1ST LESION IMAGE RT: RIGHT BREAST - JULY 24, 2021 - PATHOLOGY RESULTS: BENIGN Fibrous tissue with dense collagenous fibrosis, possible fat necrosis and focal giant cell reaction. Imaging and pathology are concordant. MG MAMMOGRAM DIGITAL DIAGNOSTIC RIGHT: JULY 24, 2021 - ML and CC view(s) were taken of the right breast. . 2D digital mammography imaging was performed and reviewed with CAD. ASSESSMENT: Post procedure mammogram for marker placement RECOMMENDATION: Follow-up diagnostic mammogram of the right breast in 6 months. Final Signed Date and Time: 08/04/2021 2:38 pm Signed by: MD VELÁZQUEZ LAUREN B Addendum ADDENDUM: This addendum is being provided to report the pathology results and recommendation for the previous report. TIME SINCE LAST MAMMOGRAM: Last mammogram was performed 1 month ago. Mammography Addendum REASON FOR EXAM: addl eval requested from prior study. PROCEDURE: MG MAMMOGRAM DIGITAL DIAGNOSTIC RIGHT: JULY 24, 2021 - ML and CC view(s) were taken of the right breast. . ASSESSMENT: Post procedure mammogram for marker placement US BX BREAST 1ST LESION IMAGE RT: RIGHT BREAST - JULY 24, 2021 - PATHOLOGY RESULTS: PENDING 2D digital mammography imaging was performed and reviewed with CAD. RECOMMENDATION: Follow-up diagnostic mammogram of the right breast in 6 months. Final Signed Date and Time: 08/04/2021 7:52 am Signed by: MD VELÁZQUEZ LAUREN B Report TIME SINCE LAST MAMMOGRAM: Last mammogram was performed 1 month ago. REASON FOR EXAM: addl eval requested from prior study. PROCEDURE: MG MAMMOGRAM DIGITAL DIAGNOSTIC RIGHT: JULY 24, 2021 - ML and CC view(s) were taken of the right breast. REASON FOR EXAMINATION: Right breast mass CONSENT: The patient presents for ultrasound-guided core biopsy of the right breast. Prior to the procedure red rules were performed which included patient name, date of , and procedure type. Risks, benefits and alternatives were explained to the patient and informed consent was obtained. The patient's prior imaging dated 07/02/2021 was reviewed. PROCEDURE: An audible time out was performed. I washed my hands and wore sterile gloves. The patient was scanned and the lesion in the right breast at the 10:30 to 11:00 position 13 cm from the nipple was redemonstrated. The patient was prepped in the usual sterile fashion. 10 mL of 1% Lidocaine was administered for local anesthesia. A leon was made in the skin and a 14-gauge BARD core biopsy device was advanced into the lesion with ultrasound guidance. 3 core specimens were obtained. Following the procedure a [place] X-shape tissue marker was deployed at the site of biopsy. Hemostasis was obtained by holding manual pressure. The patient tolerated the procedure without immediate complications. Home-going instructions were given and the patient was discharged in good condition. IMPRESSION: Technically successful US guided biopsy of the right breast. . MAMMOGRAM: Mammography Report Following the procedure the patient was transported to the mammography suite and a 2D digital mammogram was performed demonstrating satisfactory placement of the tissue marker at the site of biopsy. Markings on images: BB's = Nipples; skin lesions [place] = Palpable Line = Scar Report Dictated on ASSESSMENT: Post procedure mammogram for marker placement US BX BREAST 1ST LESION IMAGE RT: RIGHT BREAST - JULY 24, 2021 - PATHOLOGY RESULTS: PENDING 2D digital mammography imaging was performed and reviewed with CAD. Final Signed Date and Time: 07/24/2021 3:27 pm Signed by: MD VELÁZQUEZ LAUREN B Report last revised on 08/04/2021 14:38 EDT by MD VELÁZQUEZ LAUREN B [facility] Surgical Pathologyon 022 Surgical Pathology [phone] [facility] PATHOLOGY AND LABORATORY MEDICINE [address] [place] [phone] Fax - FINAL SURGICAL PATHOLOGY REPORT NAME: ALTA BAKER N [id number] : 1950 71 Y Chayito VALDEZ NO.: [id number] LOCATION: [facility] PROCEDURE 07/24/2021 DATE: SURGEON: LAURA YANG CNP RECEIVED 07/24/2021 DATE: ATTENDING: LAURA YANG CNP REPORT DATE: 07/31/2021 COPIES TO: ALIZE VELÁZQUEZ M.D. DIAGNOSIS: BREAST, RIGHT MASS AT 10:30 - 11:00 13 CM FROM NIPPLE, NEEDLE CORE BIOPSY - FIBROUS TISSUE WITH DENSE COLLAGENOUS FIBROSIS, POSSIBLE FAT NECROSIS, AND FOCAL GIANT CELL REACTION Comment: Sections show mostly dense collagenous fibrous tissue with scattered pigment-laden macrophages and giant cells. Some of these pigment-laden macrophages stain positive for iron, consistent with hemosiderin-laden macrophages. Rare giant cells present contain slightly refractile material. Other areas show changes suggestive of fat necrosis or resolving hematoma. These findings are suggestive of post-traumatic or surgical changes. Note is made of the patient's history of right breast trauma. No evidence of malignancy is identified. CRH/CRH Signature> AMAN SANTOS M.D. CLINICAL INFORMATION: Right breast mass SPECIMEN: BREAST NEEDLE CORE BIOPSY GROSS DESCRIPTION: Received in formalin labeled right breast tissue 10:30 - 11:00 o'clock, 13 cm from nipple collected at 1:20 and placed into formalin at 1:21 are multiple, pink-barkley cores that aggregate to 1 x 0.6 x 0.2 cm. The entire specimen is submitted in one cassette. CJPT/JAF Disclaimer: The following statement applies to all immunohistochemistry, in situ hybridization, molecular studies, and immunofluorescence testing. The use of one or more reagents in the above tests is regulated as an analyte specific reagent (ASR). These tests were developed and their performance characteristics determined by the clinical laboratories of [facility]. They have not been cleared by the US Food and Drug Administration (FDA). The FDA has determined that such clearance or approval is not necessary. All the above immunostains were performed on paraffin embedded tissue. Appropriate positive and negative controls (where applicable) were run in parallel with the patient's specimen; these controls showed expected staining pattern, with acceptable intensity of staining. Immunohistochemical assays have not been validated on decalcified tissues. Results should be interpreted with caution given the raised possibility of false negativity on decalcified specimens. Case reviewed at [place] [address] [place] [address]. DEPARTMENT OF PATHOLOGY AND LABORATORY MEDICINE [place], [place] [address] [email or web address] Normal [facility] US BX Breast 1st Lesion Imag e RTon 07-24-2021 US BX Breast 1st Lesion Image RT Patient Name: ALTA BAKER Ultrasound ACCESSION EXAM DATE/TIME PROCEDURE ORDERING PROVIDER [id number] 07/24/2021 14:00 EDT US BX Breast 1st Lesion LAURA YANG Image RT CPT code 26229 A4648 Reason For Exam (US BX Breast 1st Lesion Image RT) Unspecified lump in the right breast, upper outer quadrant Addendum ADDENDUM: August 04, 2021: This addendum is being provided to report the pathology results and recommendation for the previous report. August 04, 2021: This addendum is being provided to add pathology results and concordance which for technical reasons, was omitted from the previous addendum.. TIME SINCE LAST MAMMOGRAM: Last mammogram was performed 1 month ago. REASON FOR EXAM: addl eval requested from prior study. PROCEDURE: US BX BREAST 1ST LESION IMAGE RT: RIGHT BREAST - JULY 24, 2021 - PATHOLOGY RESULTS: BENIGN Fibrous tissue with dense collagenous fibrosis, possible fat necrosis and focal giant cell reaction. Imaging and pathology are concordant. MG MAMMOGRAM DIGITAL DIAGNOSTIC RIGHT: JULY 24, 2021 - ML and CC view(s) were taken of the right breast. . 2D digital mammography imaging was performed and reviewed with CAD. ASSESSMENT: Post procedure mammogram for marker placement RECOMMENDATION: Follow-up diagnostic mammogram of the right breast in 6 months. Final Addendum Signed Date and Time: 08/04/2021 2:38 pm Signed by: MD VELÁZQUEZ LAUREN B Addendum ADDENDUM: This addendum is being provided to report the pathology results and recommendation for the previous report. TIME SINCE LAST MAMMOGRAM: Last mammogram was performed 1 month ago. Ultrasound Addendum REASON FOR EXAM: addl eval requested from prior study. PROCEDURE: MG MAMMOGRAM DIGITAL DIAGNOSTIC RIGHT: JULY 24, 2021 - ML and CC view(s) were taken of the right breast. . ASSESSMENT: Post procedure mammogram for marker placement US BX BREAST 1ST LESION IMAGE RT: RIGHT BREAST - JULY 24, 2021 - PATHOLOGY RESULTS: PENDING 2D digital mammography imaging was performed and reviewed with CAD. RECOMMENDATION: Follow-up diagnostic mammogram of the right breast in 6 months. Final Addendum Signed Date and Time: 08/04/2021 7:52 am Signed by: MD VELÁZQUEZ LAUREN B Report TIME SINCE LAST MAMMOGRAM: Last mammogram was performed 1 month ago. REASON FOR EXAM: addl eval requested from prior study. PROCEDURE: MG MAMMOGRAM DIGITAL DIAGNOSTIC RIGHT: JULY 24, 2021 - ML and CC view(s) were taken of the right breast. REASON FOR EXAMINATION: Right breast mass CONSENT: The patient presents for ultrasound-guided core biopsy of the right breast. Prior to the procedure red rules were performed which included patient name, date of , and procedure type. Risks, benefits and alternatives were explained to the patient and informed consent was obtained. The patient's prior imaging dated 07/02/2021 was reviewed. PROCEDURE: An audible time out was performed. I washed my hands and wore sterile gloves. The patient was scanned and the lesion in the right breast at the 10:30 to 11:00 position 13 cm from the nipple was redemonstrated. The patient was prepped in the usual sterile fashion. 10 mL of 1% Lidocaine was administered for local anesthesia. A leon was made in the skin and a 14-gauge BARD core biopsy device was advanced into the lesion with ultrasound guidance. 3 core specimens were obtained. Following the procedure a [place] X-shape tissue marker was deployed at the site of biopsy. Hemostasis was obtained by holding manual pressure. The patient tolerated the procedure without immediate complications. Home-going instructions were given and the patient was discharged in good condition. IMPRESSION: Technically successful US guided biopsy of the right breast. . Ultrasound Report MAMMOGRAM: Following the procedure the patient was transported to the mammography suite and a 2D digital mammogram was performed demonstrating satisfactory placement of the tissue marker at the site of biopsy. Markings on images: BB's = Nipples; skin lesions [place] = Palpable Line = Scar Report Dictated on ASSESSMENT: Post procedure mammogram for marker placement US BX BREAST 1ST LESION IMAGE RT: RIGHT BREAST - JULY 24, 2021 - PATHOLOGY RESULTS: PENDING 2D digital mammography imaging was performed and reviewed with CAD. Final Signed Date and Time: 07/24/2021 3:27 pm Signed by: MD VELÁZQUEZ LAUREN B Report last revised on 08/04/2021 14:38 EDT by MD VELÁZQUEZ LAUREN B [facility] US GUIDED RIGHT BREAST BIOPS Yon 07-24-2021 Patient Name: ALTA MOYA Ultrasound ACCESSION EXAM DATE/TIME PROCEDURE ORDERING PROVIDER [id number] 07/24/2021 14:00 EDT US BX Breast 1st Lesion LAURA YANG Image RT CPT code 92160 A4648 Reason For Exam (US BX Breast 1st Lesion Image RT) Unspecified lump in the right breast, upper outer quadrant Report TIME SINCE LAST MAMMOGRAM: Last mammogram was performed 1 month ago. REASON FOR EXAM: addl eval requested from prior study. PROCEDURE: MG MAMMOGRAM DIGITAL DIAGNOSTIC RIGHT: JULY 24, 2021 - ML and CC view(s) were taken of the right breast. REASON FOR EXAMINATION: Right breast mass CONSENT: The patient presents for ultrasound-guided core biopsy of the right breast. Prior to the procedure red rules were performed which included patient name, date of , and procedure type. Risks, benefits and alternatives were explained to the patient and informed consent was obtained. The patient's prior imaging dated 07/02/2021 was reviewed. PROCEDURE: An audible time out was performed. I washed my hands and wore sterile gloves. The patient was scanned and the lesion in the right breast at the 10:30 to 11:00 position 13 cm from the nipple was redemonstrated. The patient was prepped in the usual sterile fashion. 10 mL of 1% Lidocaine was administered for local anesthesia. A leon was made in the skin and a 14-gauge BARD core biopsy device was advanced into the lesion with ultrasound guidance. 3 core specimens were obtained. Following the procedure a [place] X-shape tissue marker was deployed at the site of biopsy. Hemostasis was obtained by holding manual pressure. The patient tolerated the procedure without immediate complications. Home-going instructions were given and the patient was discharged in good condition. IMPRESSION: Technically successful US guided biopsy of the right breast. . MAMMOGRAM: Following the procedure the patient was transported to the mammography suite and a 2D digital mammogram was performed demonstrating satisfactory placement of the tissue marker at the site of biopsy. Ultrasound Report Markings on images: BB's = Nipples; skin lesions [place] = Palpable Line = Scar Report Dictated on ASSESSMENT: Post procedure mammogram for marker placement US BX BREAST 1ST LESION IMAGE RT: RIGHT BREAST - JULY 24, 2021 - PATHOLOGY RESULTS: PENDING 2D digital mammography imaging was performed and reviewed with CAD. --- Final --- Signed Date and Time: 07/24/2021 3:27 pm Signed by: MD EBER, ALIZE OJEL [facility] Alize Velázquez MD - 07/24/2021 Patient Name: ALTA BAKER Ultrasound ACCESSION EXAM DATE/TIME PROCEDURE ORDERING PROVIDER [id number] 07/24/2021 14:00 EDT US BX Breast 1st Lesion LAURA YANG Image RT CPT code 99473 A4648 Reason For Exam (US BX Breast 1st Lesion Image RT) Unspecified lump in the right breast, upper outer quadrant Report TIME SINCE LAST MAMMOGRAM: Last mammogram was performed 1 month ago. REASON FOR EXAM: addl eval requested from prior study. PROCEDURE: MG MAMMOGRAM DIGITAL DIAGNOSTIC RIGHT: JULY 24, 2021 - ML and CC view(s) were taken of the right breast. REASON FOR EXAMINATION: Right breast mass CONSENT: The patient presents for ultrasound-guided core biopsy of the right breast. Prior to the procedure red rules were performed which included patient name, date of , and procedure type. Risks, benefits and alternatives were explained to the patient and informed consent was obtained. The patient's prior imaging dated 07/02/2021 was reviewed. PROCEDURE: An audible time out was performed. I washed my hands and wore sterile gloves. The patient was scanned and the lesion in the right breast at the 10:30 to 11:00 position 13 cm from the nipple was redemonstrated. The patient was prepped in the usual sterile fashion. 10 mL of 1% Lidocaine was administered for local anesthesia. A leon was made in the skin and a 14-gauge BARD core biopsy device was advanced into the lesion with ultrasound guidance. 3 core specimens were obtained. Following the procedure a [place] X-shape tissue marker was deployed at the site of biopsy. Hemostasis was obtained by holding manual pressure. The patient tolerated the procedure without immediate complications. Home-going instructions were given and the patient was discharged in good condition. IMPRESSION: Technically successful US guided biopsy of the right breast. . MAMMOGRAM: Following the procedure the patient was transported to the mammography suite and a 2D digital mammogram was performed demonstrating satisfactory placement of the tissue marker at the site of biopsy. Ultrasound Report Markings on images: BB's = Nipples; skin lesions [place] = Palpable Line = Scar Report Dictated on ASSESSMENT: Post procedure mammogram for marker placement US BX BREAST 1ST LESION IMAGE RT: RIGHT BREAST - JULY 24, 2021 - PATHOLOGY RESULTS: PENDING 2D digital mammography imaging was performed and reviewed with CAD. --- Final --- Signed Date and Time: 07/24/2021 3:27 pm Signed by: MD EBER, ALIZE Wilson [employer] Work Phone: Radiology Study observation (narrative) [employer] Work Phone: US GUIDED RIGHT BREAST BIOPS YOrdered By: Alize Velázquez on 07-24-2021 [employer] Work Phone: LUNA ERNST DIGITAL DIAGNOSTIC BILATERALon 07-02-2021 Patient Name: ALTA MOYA Mammography ACCESSION EXAM DATE/TIME PROCEDURE ORDERING PROVIDER [id number] 07/02/2021 10:26 EDT MG Breast Tomosynthesis DO IBARRA EUGENE F. BI CPT code 06099 97279 Reason For Exam (MG Breast Tomosynthesis BI) rt focal asymmetry Report TIME SINCE LAST MAMMOGRAM: Last mammogram was performed 1 year and 7 months ago. REASON FOR EXAM: follow-up at short interval from prior study. PROCEDURE: MG BREAST TOMOSYNTHESIS BL: JULY 02, 2021 - 2D/3D Procedure 3D Bilateral CC and MLO view(s) were taken. 2D Bilateral CC and MLO view(s) were taken. Prior study comparison: November 27, 2019, bilateral MG breast tomosynthesis bl performed at [facility]. December 07, 2018, right breast MG breast tomosynthesis right performed at [facility]. December 07, 2018, right breast US breast limited right performed at [facility]. November 23, 2018, bilateral MG breast tomosynthesis bl scr performed at [facility]. TISSUE DENSITY: BIRADS B - There are scattered fibroglandular densities. . FINDINGS: The patient presents for short-term follow-up for a probably benign right breast focal asymmetry. Mammogram: A spiculated high density mass is seen within the superior lateral right breast at posterior depth corresponding to the patient's focal asymmetry. The patient does have a history of trauma to this region, though given the appearance on today's evaluation a suspicious. ULTRASOUND: Targeted sonographic evaluation the right breast was performed. At the 10:30 to 11:00 position, 13 cm from nipple there is an irregular hypoechoic mass with irregular margins measuring 3.3 x 2.6 x 4.1 cm. Internal vascularity is noted. Additional evaluation of the right axilla demonstrates for morphologically normal lymph nodes. IMPRESSION: Suspicious right breast mass. Mammography Report Markings on images: BB's = Nipples; skin lesions [place] = Palpable Line = Scar 2D digital mammography and tomosynthesis imaging were performed and reviewed with CAD. ASSESSMENT: Category 4 Suspicious - Right RECOMMENDATION: Ultrasound guided core biopsy and surgical consultation of the right breast. These findings were discussed with the patient at the time of dictation. . Report Dictated on --- Final --- Signed Date and Time: 07/02/2021 11:57 am Signed by: DO TELLEZ RACHEL [facility] Gay Tellez DO - 07/02/2021 Patient Name: ALTA BAKER Mammography ACCESSION EXAM DATE/TIME PROCEDURE ORDERING PROVIDER [id number] 07/02/2021 10:26 EDT MG Breast Tomosynthesis DO IBARRA EUGENE F. BI CPT code 03141 72468 Reason For Exam (MG Breast Tomosynthesis BI) rt focal asymmetry Report TIME SINCE LAST MAMMOGRAM: Last mammogram was performed 1 year and 7 months ago. REASON FOR EXAM: follow-up at short interval from prior study. PROCEDURE: MG BREAST TOMOSYNTHESIS BL: JULY 02, 2021 - 2D/3D Procedure 3D Bilateral CC and MLO view(s) were taken. 2D Bilateral CC and MLO view(s) were taken. Prior study comparison: November 27, 2019, bilateral MG breast tomosynthesis bl performed at [facility]. December 07, 2018, right breast MG breast tomosynthesis right performed at [facility]. December 07, 2018, right breast US breast limited right performed at [facility]. November 23, 2018, bilateral MG breast tomosynthesis bl scr performed at [facility]. TISSUE DENSITY: BIRADS B - There are scattered fibroglandular densities. . FINDINGS: The patient presents for short-term follow-up for a probably benign right breast focal asymmetry. Mammogram: A spiculated high density mass is seen within the superior lateral right breast at posterior depth corresponding to the patient's focal asymmetry. The patient does have a history of trauma to this region, though given the appearance on today's evaluation a suspicious. ULTRASOUND: Targeted sonographic evaluation the right breast was performed. At the 10:30 to 11:00 position, 13 cm from nipple there is an irregular hypoechoic mass with irregular margins measuring 3.3 x 2.6 x 4.1 cm. Internal vascularity is noted. Additional evaluation of the right axilla demonstrates for morphologically normal lymph nodes. IMPRESSION: Suspicious right breast mass. Mammography Report Markings on images: BB's = Nipples; skin lesions Open [place] = Palpable Line = Scar 2D digital mammography and tomosynthesis imaging were performed and reviewed with CAD. ASSESSMENT: Category 4 Suspicious - Right RECOMMENDATION: Ultrasound guided core biopsy and surgical consultation of the right breast. These findings were discussed with the patient at the time of dictation. . Report Dictated on --- Final --- Signed Date and Time: 07/02/2021 11:57 am Signed by: DO TELLEZ RACHEL [facility] Work Phone: Radiology Study observation (narrative) [facility] Work Phone: LUNA ERNST DIGITAL DIAGNOSTIC BILATERALOrdered By: Gay Tellez on 07-02-2021 [facility] Work Phone: MG Breast Tomosynthesis Diag nostic BIon 07-02-2021 MG Breast Tomosynthesis Diagnostic BI Patient Name: ALTA BAKER Mammography ACCESSION EXAM DATE/TIME PROCEDURE ORDERING PROVIDER [id number] 07/02/2021 10:26 EDT MG Breast Tomosynthesis DO IBARRA EUGENE F. BI CPT code 17121 73301 Reason For Exam (MG Breast Tomosynthesis BI) rt focal asymmetry Report TIME SINCE LAST MAMMOGRAM: Last mammogram was performed 1 year and 7 months ago. REASON FOR EXAM: follow-up at short interval from prior study. PROCEDURE: MG BREAST TOMOSYNTHESIS BL: JULY 02, 2021 - 2D/3D Procedure 3D Bilateral CC and MLO view(s) were taken. 2D Bilateral CC and MLO view(s) were taken. Prior study comparison: November 27, 2019, bilateral MG breast tomosynthesis bl performed at [facility]. December 07, 2018, right breast MG breast tomosynthesis right performed at [facility]. December 07, 2018, right breast US breast limited right performed at [facility]. November 23, 2018, bilateral MG breast tomosynthesis bl scr performed at [facility]. TISSUE DENSITY: BIRADS B - There are scattered fibroglandular densities. . FINDINGS: The patient presents for short-term follow-up for a probably benign right breast focal asymmetry. Mammogram: A spiculated high density mass is seen within the superior lateral right breast at posterior depth corresponding to the patient's focal asymmetry. The patient does have a history of trauma to this region, though given the appearance on today's evaluation a suspicious. ULTRASOUND: Targeted sonographic evaluation the right breast was performed. At the 10:30 to 11:00 position, 13 cm from nipple there is an irregular hypoechoic mass with irregular margins measuring 3.3 x 2.6 x 4.1 cm. Internal vascularity is noted. Additional evaluation of the right axilla demonstrates for morphologically normal lymph nodes. IMPRESSION: Suspicious right breast mass. Mammography Report Markings on images: BB's = Nipples; skin lesions Open [place] = Palpable Line = Scar 2D digital mammography and tomosynthesis imaging were performed and reviewed with CAD. ASSESSMENT: Category 4 Suspicious - Right RECOMMENDATION: Ultrasound guided core biopsy and surgical consultation of the right breast. These findings were discussed with the patient at the time of dictation. . Report Dictated on Final Signed Date and Time: 07/02/2021 11:57 am Signed by: DO TELLEZ RACHEL [facility] MG Cancer Risk Surveyon 06-14 MG Cancer Risk Survey Patient Name: ALTA COHEN Mammography ACCESSION EXAM DATE/TIME PROCEDURE ORDERING PROVIDER [id number] 07/02/2021 10:26 EDT MG Cancer Risk Survey DO IBARRA EUGENE F. Reason For Exam ( Cancer Risk Survey) diagnostic Report Cancer Risk Assessment: This risk assessment is based on patient provided information collected in a risk survey taken by the patient. PATIENT CANCER HISTORY: No Personal History of Cancer FAMILY CANCER HISTORY: Mother Lung Cancer Paternal Grandmother Breast Cancer Lifetime breast cancer risk: Average Risk - If greater than or equal to 20%, consider annual mammogram and annual screening Breast MRI or follow up in high risk clinic. A score of Average Risk indicates a score of less than 20%. Is the patient at elevated risk based on the HBOC criteria? No (Hereditary Breast and Ovarian Cancer) - If yes, consider genetic counseling and testing with high risk follow up. Is the patient at elevated risk based on the Meeks Syndrome criteria? No - If yes, consider genetic counseling and testing with high risk follow up. Report Dictated on Workstation: SHELLEY Final Dictating Physician: [employer]V2 Signed Date and Time: 09/01/2021 2:37 pm Signed by: [employer] [facility] US Breast Limited Righton US Breast Limited Right Patient Name: ALTA BAKER Ultrasound ACCESSION EXAM DATE/TIME PROCEDURE ORDERING PROVIDER [id number] 07/02/2021 11:48 EDT US Breast Limited Right DO IBARRA EUGENE F. CPT code 31014 Reason For Exam (US Breast Limited Right) R92.8 ABNORMAL MAMMOGRAM Report This report was read in conjunction with Breast Ernst Bl Final Signed Date and Time: 08/27/2021 3:18 pm Signed by: GARMENT MANUFACTURING SUPERVISOR, SYSTEM Transcribed Date and Time: 08/27/2021 1:49 Transcribed By:OPHELIA Normal [facility] Prothrombin Timeon 2 INR 3.0 High 0.9-1.1 [facility] Comment on above: Result Comment: Hong mmended Anticoagulant Therapy: SEE BELOW ----- INR of 2.0 - 3.0 : - Prophylaxis of Venous Thrombosis (high-risk surgery) - Treatment of Venous Thrombosis - Treatment of Pulmonary Embolism (Includes tissue heart valves, Acute Myocardial Infarction to prevent systemic embolism, Valvular Heart Disease, and Atrial Fibrillation) ----- INR of 2.5 - 3.5 : - Mechanical Prosthetic Valves (high risk) - If oral anticoagulant therapy is used to prevent Myocardial Infarction Performed By: #### L MILES ESPARZA, MD MANISHIFF #### [facility] [address] [place] [address] PT Coag (PPP) [Time] 30.5 s High 9.0-12.0 [facility] Comment on above: Result Comment: . Performed By: #### L MILES ESPARZA, MD MANISHIFF #### [facility] [address] [place] [address] CBC Auto DifferentialOrdered By: Kory Ibarra on 12-30-2020 Hematocrit (Bld) [Volume fraction] 39.3 % 35.0 - 47.0 % [facility] Work Phone: Hemoglobin.gastrointes tinal spec 1 Ql (Stl) 13.1 g/dL 11.7 - 16.0 g/dL [facility] Work Phone: MCH (RBC) [Entitic mass] 27.8 pg 26.0 - 34.0 pg [facility] Work Phone: MCHC (RBC) [Mass/Vol] 33.3 % 32.0 - 36.0 % [facility] Work Phone: MCV (RBC) [Entitic vol] 83.5 fL 79.0 - 98.0 fL [facility] Work Phone: Platelet distribution width (Bld) [Ratio] 15.4 % High 11.5 - 14.5 % [employer] Work Phone: Platelet mean volume (Bld) [Entitic vol] 9.7 fL 7.4 - 10.4 fL [employer] Work Phone: Platelets (Bld) [#/Vol] 136 10*3/uL Low 140 - 440 10*3/uL [employer] Work Phone: RBC (Bld) [#/Vol] 4.71 10*6/uL 3.80 - 5.2 0 10*6/uL [employer] Work Phone: WBC (Bld) [#/Vol] 10.7 10*3/uL 3.6 - 10.7 10*3/uL [employer] Work Phone: Comp Metabolic Panelon 12-30 ALP [Catalytic activity/Vol] 79 U/L Normal 38-126 [facility] Comment on above: Performed By: #### L IPD2 CMP3MANISH MDIFF #### [facility] [address] [place] [address] ALT [Catalytic activity/Vol] 33 U/L Normal 0-34 [facility] Comment on above: Result Comment: The ALT test is performed by an updated assay method. Please note that the reference intervals have been changed and are now sex specific. Performed By: #### L IPD2, CMP3, HERNÁN HAMMOND #### [facility] [address] [place] [address] AST [Catalytic activity/Vol] 38 U/L Normal 15-46 [facility] Comment on above: Performed By: #### L IPD2, CMP3, HERNÁN HAMMOND #### [facility] [address] [place] [address] Calcium [Mass/Vol] 9.8 mg/dL Normal 8.4-10.4 [facility] Comment on above: Performed By: #### L IPD2, CMP3, HERNÁN HAMMOND #### [facility] [address] [place] [address] Glucose [Mass/Vol] 133 mg/dL High 70-100 [facility] Comment on above: Performed By: #### L IPD2, CMP3, MD MANISHIFF #### [facility] [address] [place] [address] Urea nitrogen [Mass/Vol] 13 mg/dL Normal 9-20 [facility] Comment on above: Performed By: #### L IPD2, CMP3, MD MANISHIFF #### [facility] [address] [place] [address] Anion gap [Moles/Vol] 5 mmol/L Normal 3-13 [facility] Comment on above: Performed By: #### L IPD2, CMP3, MANISH MDIFF #### [facility] [address] [place] [address] Bilirubin [Mass/Vol] 0.9 mg/dL Normal 0.2-1.3 [facility] Comment on above: Performed By: #### L IPD2, CMP3, MD MANISHIFF #### [facility] [address] [place] [address] CO2 [Moles/Vol] 32 mmol/L High 22-30 [facility] Comment on above: Performed By: #### L IPD2, CMP3, MD MANISHIFF #### [facility] [address] [place] [address] Creatinine [Mass/Vol] 0.87 mg/dL Normal 0.52-1.25 [facility] Comment on above: Performed By: #### L IPD2, CMP3MANISH MDIFF #### [facility] [address] [place] [address] GFR/1.73 sq M.predicted among blacks MDRD (S/P/Bld) [Vol rate/Area] 78.4 mL/min/{1.73_m2} Normal >60 [facility] Comment on above: Performed By: #### L IPD2, CMP3, HEMGWEN MDIFF #### [facility] [address] [place] [address] GFR/1.73 sq M.predicted among non-blacks MDRD (S/P/Bld) [Vol rate/Area] 67.6 mL/min/{1.73_m2} Normal >60 [facility] Comment on above: Result Comment: KDIG O guidelines provide the following GFR categories: Stage GFR(ml/min/1.73 m2) Terms G1 >=90 Normal or high G2 60-89 Mildly decreased* G3a 45-59 Mildly to moderately decreased G3b 30-44 Moderately to severely decreased G4 15-29 Severely decreased G5 <15 Kidney failure *Relative to young adult level. In the absence of evidence of kidney damage, neither GFR category G1 nor G2 fulfill the criteria for CKD. The CKD-EPI equation is validated in individuals 18 years of age and older. Currently the best equation for estimating glomerular filtration rate (GFR) from serum creatinine in children is the Bedside Knott equation. It is less accurate in patients with extremes of muscle mass, restriction of dietary protein, ingestion of creatine, extra-renal metabolism of creatinine, or treatment with medications that affect renal tubular creatinine secretion. Performed By: #### L SHELL2MILES HEMDF, MDIFF #### [facility] [address] [place] [address] Protein [Mass/Vol] 7.4 g/dL Normal 6.3-8.2 [facility] Comment on above: Performed By: #### L MILES ESPARZA HEMDF, MDIFF #### [facility] [address] [place] [address] Potassium [Moles/Vol] 4.4 mmol/L Normal 3.5-5.1 [facility] Comment on above: Performed By: #### L SHELL2MILES HEMDF, MDIFF #### [facility] [address] [place] [address] Sodium [Moles/Vol] 140 mmol/L Normal 135-145 [facility] Comment on above: Performed By: #### L MILES ESPARZA HEMDF, MDIFF #### [facility] [address] [place] [address] Albumin [Mass/Vol] 4.2 g/dL Normal 3.5-5.0 [facility] Comment on above: Performed By: #### L SHELL2JALIL3MANISH MDIFF #### [facility] [address] [place] [address] Chloride [Moles/Vol] 103 mmol/L Normal 98-107 [facility] Comment on above: Performed By: #### L IPD2, CMP3, HEMDF, MDIFF #### [facility] [address] [place] [address] Comprehensive Metabolic Pane lOrdered By: Kory Ibarra on 12-30-2020 Albumin [Mass/Vol] 4.2 g/dL 3.5 - 5.0 g/dL [facility] Work Phone: 1) ALP (Bld) [Catalytic activity/Vol] 79 U/L 38 - 126 U/L [facility] Work Phone: ) ALT [Catalytic activity/Vol] 33 U/L 0 - 34 U/L [facility] Work Phone: ) Comment on above: The ALT test is perf ormed by an updated assay method. Please note that the reference intervals have been changed and are now sex specific. Anion gap [Moles/Vol] 5 mmol/L 3 - 13 mmol/L [facility] Work Phone: ) AST [Catalytic activity/Vol] 38 U/L 15 - 46 U/L [facility] Work Phone: ) [phone] Bilirubin [Mass/Vol] 0.9 mg/dL 0.2 - 1 .3 mg/dL [facility] Work Phone: ) [phone] Calcium [Mass/Vol] 9.8 mg/dL 8.4 - 10. 4 mg/dL [facility] Work Phone: [phone] Chloride [Moles/Vol] 103 mmol/L 98 - 10 7 mmol/L [facility] Work Phone: ) [phone] CO2 [Moles/Vol] 32 mmol/L High 22 - 30 mmol/L [facility] Work Phone: [phone] Creatinine [Mass/Vol] 0.87 mg/dL 0.52 - 1.25 mg/dL [facility] Work Phone: [phone] EGFR IF NonAfrican Mauritanian 67.6 mL/min >60 [facility] Work Phone: )[phone] Comment on above: KDIGO guidelines pro vide the following GFR categories: Stage GFR(ml/min/1.73 m2) Terms G1 >=90 Normal or high G2 60-89 Mildly decreased* G3a 45-59 Mildly to moderately decreased G3b 30-44 Moderately to severely decreased G4 15-29 Severely decreased G5 <15 Kidney failure *Relative to young adult level. In the absence of evidence of kidney damage, neither GFR category G1 nor G2 fulfill the criteria for CKD. The CKD-EPI equation is validated in individuals 18 years of age and older. Currently the best equation for estimating glomerular filtration rate (GFR) from serum creatinine in children is the Bedside Knott equation. It is less accurate in patients with extremes of muscle mass, restriction of dietary protein, ingestion of creatine, extra-renal metabolism of creatinine, or treatment with medications that affect renal tubular creatinine secretion. Free PSA/Total PSA [Mass fraction] 7.4 g/dL 6.3 - 8.2 g/dL [employer] Work Phone: GFR/1.73 sq M.predicted among blacks MDRD (S/P/Bld) [Vol rate/Area] 78.4 mL/min/{1.73_m2} >60 [facility] Work Phone: Glucose [Mass/Vol] 133 mg/dL High 70 - 100 mg/dL [employer] Phone: Potassium [Moles/Vol] 4.4 mmol/L 3.5 - 5.1 mmol/L [employer] Work Phone: Sodium [Moles/Vol] 140 mmol/L 135 - 145 mmol/L [employer] Work Phone: Urea nitrogen (BldV) [Mass/Vol] 13 mg/dL 9 - 20 mg/dL [employer] Phone: Hemogram w/ Autodiffon 12-30 Erythrocyte distribution width (RBC) [Ratio] 15.4 % High 11.5-14.5 [facility] Comment on above: Performed By: #### L MILES ESPARZA HEMDF, MDIFF #### [employer] [address] [place] [address] Hematocrit (Bld) [Volume fraction] 39.3 % Normal 35.0-47.0 [facility] Comment on above: Performed By: #### L MILES ESPARZA HEMDF MDIFF #### [facility] [address] [place] [address] Hemoglobin (Bld) [Mass/Vol] 13.1 g/dL Normal 11.7-16.0 [facility] Comment on above: Performed By: #### L IPD2, CMP3, HEMGWEN, MDIFF #### [facility] [address] [place] [address] MCH (RBC) [Entitic mass] 27.8 pg Normal 26.0-34.0 [facility] Comment on above: Performed By: #### L IPD2, CMP3, HEMGWEN, MDIFF #### [facility] [address] [place] [address] MCHC 33.3 % Normal 32.0-36.0 [facility] Comment on above: Performed By: #### L IPD2, CMP3, HEMMD GWENIFF #### [facility] [address] [place] [address] MCV (RBC) [Entitic vol] 83.5 fL Normal 79.0-98.0 [facility] Comment on above: Performed By: #### L IPD2, CMP3, HEMMD GWENIFF #### [facility] [address] [place] [address] Platelet mean volume (Bld) [Entitic vol] 9.7 fL Normal 7.4-10.4 [facility] Comment on above: Performed By: #### L IPD2, CMP3, HEMGWEN, MDIFF #### [facility] [address] [place] [address] Platelets (Bld) [#/Vol] 136 10*3/uL Low 140-440 [facility] Comment on above: Performed By: #### L IPD2, CMP3, HEMGWEN MDIFF #### [facility] [address] [place] [address] RBC (Bld) [#/Vol] 4.71 10*6/uL Normal 3.80-5.20 [facility] Comment on above: Performed By: #### L IPD2, CMP3, HEMDF, MDIFF #### [facility] [address] [place] [address] WBC (Bld) [#/Vol] 10.7 10*3/uL Normal 3.6-10.7 [facility] Comment on above: Performed By: #### L IPD2, CMP3, HERNÁN HAMMOND #### [facility] [address] [place] [address] Lipid Panelon 12-30-2020 Chol/HDL 4 Normal [facility] Comment on above: Result Comment: Ref Range: < 3 Low Risk for CHD 3-6 Mod Risk for CHD > 6 High Risk for CHD Performed By: #### L IPD2, CMP3MANISH MDIFF #### [facility] [address] [place] [address] Cholesterol in HDL [Mass/Vol] 31 mg/dL Low 40-60 [facility] Comment on above: Performed By: #### L IPD2, CMP3MANISH MDIFF #### [facility] [address] [place] [address] Low Density Lipoprotein 63 mg/dL Normal <100 [facility] Comment on above: Performed By: #### L IPD2, CMP3MANISH MDIFF #### [facility] [address] [place] [address] Triglyceride [Mass/Vol] 167 mg/dL Abnormal <150 [facility] Comment on above: Performed By: #### L IPD2, CMP3MANISH MDIFF #### [facility] [address] [place] [address] Cholesterol [Mass/Vol] 127 mg/dL Normal < 200 [facility] Comment on above: Performed By: #### L IPD2, CMP3MANISH MDIFF #### [facility] [address] [place] [address] Lipid PanelOrdered By: Herbert Ibarra on 12-30-2020 Cholesterol [Mass/Vol] 127 mg/dL <200 [facility] Work Phone: Cholesterol in HDL [Mass/Vol] 31 mg/dL Low 40 - 60 mg/dL [facility] Work Phone: Cholesterol in LDL [Mass/Vol] 63 mg/dL <100 [facility] Work Phone: Cholesterol.total/Chol esterol in HDL [Mass ratio] 4 {ratio} [facility] Work Phone: Comment on above: Ref Range: < 3 Low Risk for CHD 3-6 Mod Risk for CHD > 6 High Risk for CHD Triglyceride [Mass/Vol] 167 mg/dL Abnormal <150 [facility] Work Phone: Manual Diffon 12-30-2020 Abs Baso Cnt 0.0 10*3/uL Normal 0.0-0.2 [facility] Comment on above: Performed By: #### L IPD2, CMP3, HERNÁN HAMMOND #### [facility] [address] [place] [address] Abs Eosin Cnt 0.0 10*3/uL Normal 0.0-0.5 [facility] Comment on above: Performed By: #### L IPD2, CMP3, MD MANISHIFF #### [facility] [address] [place] [address] Abs Lymph Cnt 2.0 10*3/uL Normal 1.1-4.5 [facility] Comment on above: Performed By: #### L IPD2, CMP3, HERNÁN HAMMOND #### [facility] [address] [place] [address] Abs Monocyte Cnt 1.3 10*3/uL High 0.2-1.1 [facility] Comment on above: Performed By: #### L IPD2, CMP3, MD MANISHIFF #### [facility] [address] [place] [address] Abs Neutrophile Cnt 7.4 10*3/uL Normal 2.2-8.2 [facility] Comment on above: Performed By: #### L IPD2, CMP3, HERNÁN HAMMOND #### [facility] [address] [place] [address] Bands 2 % Normal 0-3 [facility] Comment on above: Performed By: #### L IPD2, CMP3, HERNÁN HAMMOND #### [facility] [address] [place] [address] Basophils 0 % Normal 0-2 [facility] Comment on above: Performed By: #### L IPD2, CMP3, HEMGWEN, IFF #### [facility] [address] [place] [address] Cells counted 100 Normal [facility] Comment on above: Performed By: #### L IPD2, CMP3, HEMGWEN, MDIFF #### [facility] [address] [place] [address] Eosinophils 0 % Low 1-6 [facility] Comment on above: Performed By: #### L IPD2, CMP3, HEMGWEN, IFF #### [facility] [address] [place] [address] Lymphocytes 19 % Low 20-40 [facility] Comment on above: Performed By: #### L IPD2, CMP3, HEMGWEN, IFF #### [facility] [address] [place] [address] Monocytes 12 % High 2-10 [facility] Comment on above: Performed By: #### L IPD2, CMP3, MD MANISHIFF #### [facility] [address] [place] [address] RBC Morphology Normal Normal [facility] Comment on above: Performed By: #### L IPD2, CMP3, HEMGWEN, MDIFF #### [facility] [address] [place] [address] Seg Neutrophils 67 % Normal 40-80 [facility] Comment on above: Performed By: #### L IPD2, CMP3, HEMGWEN, MDIFF #### [facility] [address] [place] [address] Manual DifferentialOrdered B y: Kory Fred on 12-30-2020 Absolute Baso # 0.0 10*3/uL 0.0 - 0.2 10*3/uL [facility] Work Phone: Absolute Eos # 0.0 10*3/uL 0.0 - 0.5 10*3/uL [facility] Work Phone: Absolute Lymph # 2.0 10*3/uL 1.1 - 4.5 10*3/uL [facility] Work Phone: [phone] Absolute [place] # 1.3 10*3/uL High 0.2 - 1.1 10*3/uL [facility] Work Phone: [phone] Absolute Neut # 7.4 10*3/uL 2.2 - 8.2 10*3/uL [facility] Work Phone: [phone] Bands 2 % 0 - 3 % [facility] Work Phone: [phone] Basophils/100 WBC (Bld) 0 % 0 - 2 % [facility] Work Phone: [phone] Eosinophils/100 WBC (Bld) 0 % Low 1 - 6 % [facility] Work Phone: [phone] Lymphocytes/100 WBC (Bld) 19 % Low 20 - 40 % [facility] Work Phone: [phone] Monocytes/100 WBC (Bld) 12 % High 2 - 10 % [facility] Work Phone: [phone] RBC (Bld) [#/Vol] Normal [facility] Work Phone: [phone] Seg Neutrophils 67 % 40 - 80 % [facility] Work Phone: [phone] TOTAL CELLS COUNTED 100 [facility] Work Phone: [phone] No Panel InformationOrdered By: Kory Ibarra on 12-30-2020 Interpretation and review of laboratory results Abnormal [facility] Work Phone: [phone] Test Performed by [employer], [address] [place] [address] [facility] Work Phone: [phone] [facility] Work Phone: [phone] Interpretation and review of laboratory results Abnormal [facility] Work Phone: [phone] Test Performed by Self [employer], [address] , [place] [address] [facility] Work Phone: [phone] [facility] Work Phone: [phone] Prothrombin Timeon 1 INR 2.8 High 0.9-1.1 [facility] Comment on above: Result Comment: Hong mmended Anticoagulant Therapy: SEE BELOW ----- INR of 2.0 - 3.0 : - Prophylaxis of Venous Thrombosis (high-risk surgery) - Treatment of Venous Thrombosis - Treatment of Pulmonary Embolism (Includes tissue heart valves, Acute Myocardial Infarction to prevent systemic embolism, Valvular Heart Disease, and Atrial Fibrillation) ----- INR of 2.5 - 3.5 : - Mechanical Prosthetic Valves (high risk) - If oral anticoagulant therapy is used to prevent Myocardial Infarction Performed By: #### P T #### [facility] [address] [place] [address] PT Coag (PPP) [Time] 28.2 s High 9.0-12.0 [facility] Comment on above: Result Comment: . Performed By: #### P T #### [facility] [address] [place] [address] Protime-INROrdered By: Ronel Ly on 12-30-2020 INR Coag (Bld) [Relative time] 2.8 {INR} High [facility] Work Phone: Comment on above: Recommended Anticoag ulant Therapy: SEE BELOW ----- INR of 2.0 - 3.0 : - Prophylaxis of Venous Thrombosis (high-risk surgery) - Treatment of Venous Thrombosis - Treatment of Pulmonary Embolism (Includes tissue heart valves, Acute Myocardial Infarction to prevent systemic embolism, Valvular Heart Disease, and Atrial Fibrillation) ----- INR of 2.5 - 3.5 : - Mechanical Prosthetic Valves (high risk) - If oral anticoagulant therapy is used to prevent Myocardial Infarction Interpretation and review of laboratory results Abnormal [facility] Work Phone: PT Coag (PPP) [Time] 28.2 s High 9.0 - 12.0 s [employer] Work Phone: Comment on above: . Test Performed by [employer], [address] , [place], [place] [address] Work Phone: [facility] Work Phone: Prothrombin Timeon 1 INR 3.3 High 0.9-1.1 [facility] [employer] Comment on above: Result Comment: Hong mmended Anticoagulant Therapy: SEE BELOW ----- INR of 2.0 - 3.0 : - Prophylaxis of Venous Thrombosis (high-risk surgery) - Treatment of Venous Thrombosis - Treatment of Pulmonary Embolism (Includes tissue heart valves, Acute Myocardial Infarction to prevent systemic embolism, Valvular Heart Disease, and Atrial Fibrillation) ----- INR of 2.5 - 3.5 : - Mechanical Prosthetic Valves (high risk) - If oral anticoagulant therapy is used to prevent Myocardial Infarction Performed By: #### P T #### [facility] [address] [place] [address] PT Coag (PPP) [Time] 33.0 s High 9.0-12.0 [facility] Comment on above: Result Comment: . Performed By: #### P T #### [facility] [address] [place] [address] Protime-INROrdered By: Ronel Ly on 12-17-2020 INR Coag (Bld) [Relative time] 3.3 {INR} High [facility] Work Phone: Comment on above: Recommended Anticoag ulant Therapy: SEE BELOW ----- INR of 2.0 - 3.0 : - Prophylaxis of Venous Thrombosis (high-risk surgery) - Treatment of Venous Thrombosis - Treatment of Pulmonary Embolism (Includes tissue heart valves, Acute Myocardial Infarction to prevent systemic embolism, Valvular Heart Disease, and Atrial Fibrillation) ----- INR of 2.5 - 3.5 : - Mechanical Prosthetic Valves (high risk) - If oral anticoagulant therapy is used to prevent Myocardial Infarction Interpretation and review of laboratory results Abnormal [facility] Work Phone: PT Coag (PPP) [Time] 33 s High 9.0 - 12.0 s [employer] Work Phone: Comment on above: . Test Performed by [facility], [address] , [place], [place] [id number] [place] [address] Work Phone: [facility] Work Phone: Protime-INROrdered By: Ronel Ly on 10-03-2020 INR Coag (Bld) [Relative time] 2.1 {INR} High [facility] Work Phone: Comment on above: Recommended Anticoag ulant Therapy: SEE BELOW ----- INR of 2.0 - 3.0 : - Prophylaxis of Venous Thrombosis (high-risk surgery) - Treatment of Venous Thrombosis - Treatment of Pulmonary Embolism (Includes tissue heart valves, Acute Myocardial Infarction to prevent systemic embolism, Valvular Heart Disease, and Atrial Fibrillation) ----- INR of 2.5 - 3.5 : - Mechanical Prosthetic Valves (high risk) - If oral anticoagulant therapy is used to prevent Myocardial Infarction Interpretation and review of laboratory results Abnormal [facility] Work Phone: 3 PT Coag (PPP) [Time] 21.6 s High 9.0 - 12.0 s [employer] Work Phone: [phone] Comment on above: . Test Performed by [employer], [address] , [place] [address] [employer] Work Phone: [facility] Work Phone: Protime-INROrdered By: Ronel Ly on 09-24-2020 INR Coag (Bld) [Relative time] 1.6 {INR} High [employer] Work Phone: [phone] Comment on above: Recommended Anticoag ulant Therapy: SEE BELOW ----- INR of 2.0 - 3.0 : - Prophylaxis of Venous Thrombosis (high-risk surgery) - Treatment of Venous Thrombosis - Treatment of Pulmonary Embolism (Includes tissue heart valves, Acute Myocardial Infarction to prevent systemic embolism, Valvular Heart Disease, and Atrial Fibrillation) ----- INR of 2.5 - 3.5 : - Mechanical Prosthetic Valves (high risk) - If oral anticoagulant therapy is used to prevent Myocardial Infarction Interpretation and review of laboratory results Abnormal [facility] Work Phone: [phone] PT Coag (PPP) [Time] 17 s High 9.0 - 12.0 s [employer] Work Phone: 0 Comment on above: . Test Performed by [employer], [address] , [address] Work Phone: [phone] [facility] Work Phone: Protime-INROrdered By: Ronel Ly on 06-04-2021 INR Coag (Bld) [Relative time] 3.2 {INR} High [employer] Work Phone: Comment on above: Recommended Anticoag ulant Therapy: SEE BELOW ----- INR of 2.0 - 3.0 : - Prophylaxis of Venous Thrombosis (high-risk surgery) - Treatment of Venous Thrombosis - Treatment of Pulmonary Embolism (Includes tissue heart valves, Acute Myocardial Infarction to prevent systemic embolism, Valvular Heart Disease, and Atrial Fibrillation) ----- INR of 2.5 - 3.5 : - Mechanical Prosthetic Valves (high risk) - If oral anticoagulant therapy is used to prevent Myocardial Infarction Interpretation and review of laboratory results Abnormal [employer] Work Phone: PT Coag (PPP) [Time] 31.6 s High 9.0 - 12.0 s [employer]EL[employer] Work Phone: Comment on above: . Test Performed by [employer], [address] [place] [address] [employer] Work Phone: [employer] Work Phone: Protime-INRon 05-23-2020 INR Coag (PPP) [Relative time] 3.0 {INR} High [employer] Work Phone: Comment on above: Recommended Anticoag ulant Therapy: SEE BELOW ----- INR of 2.0 - 3.0 : - Prophylaxis of Venous Thrombosis (high-risk surgery) - Treatment of Venous Thrombosis - Treatment of Pulmonary Embolism (Includes tissue heart valves, Acute Myocardial Infarction to prevent systemic embolism, Valvular Heart Disease, and Atrial Fibrillation) ----- INR of 2.5 - 3.5 : - Mechanical Prosthetic Valves (high risk) - If oral anticoagulant therapy is used to prevent Myocardial Infarction Interpretation and review of laboratory results Abnormal [employer] Work Phone: PT Coag (PPP) [Time] 31 s High 9.0 - 12.0 s [employer] Work Phone: Comment on above: . Test Performed by [employer], [address] , [place] [id number] [employer] Work Phone: Protime-INRon 05-15-2020 INR Coag (PPP) [Relative time] 3.7 {INR} High [employer] Work Phone: Comment on above: Recommended Anticoag ulant Therapy: SEE BELOW ----- INR of 2.0 - 3.0 : - Prophylaxis of Venous Thrombosis (high-risk surgery) - Treatment of Venous Thrombosis - Treatment of Pulmonary Embolism (Includes tissue heart valves, Acute Myocardial Infarction to prevent systemic embolism, Valvular Heart Disease, and Atrial Fibrillation) ----- INR of 2.5 - 3.5 : - Mechanical Prosthetic Valves (high risk) - If oral anticoagulant therapy is used to prevent Myocardial Infarction Interpretation and review of laboratory results Abnormal [facility] Work Phone: PT Coag (PPP) [Time] 37.2 s High 9 - 12 s [facility] Work Phone: Comment on above: . Test Performed by [facility], [address] , [place] [id number] [employer] Work Phone: Protime-INRon 04-29-2020 INR Coag (PPP) [Relative time] 1.9 {INR} [place] [employer] Work Phone: Comment on above: Recommended Anticoag ulant Therapy: SEE BELOW ----- INR of 2.0 - 3.0 : - Prophylaxis of Venous Thrombosis (high-risk surgery) - Treatment of Venous Thrombosis - Treatment of Pulmonary Embolism (Includes tissue heart valves, Acute Myocardial Infarction to prevent systemic embolism, Valvular Heart Disease, and Atrial Fibrillation) ----- INR of 2.5 - 3.5 : - Mechanical Prosthetic Valves (high risk) - If oral anticoagulant therapy is used to prevent Myocardial Infarction Interpretation and review of laboratory results Abnormal [facility] Work Phone: PT Coag (PPP) [Time] 19.8 s High 9 - 12 s [facility] Work Phone: Comment on above: . Test Performed by [facility], [address] , [place], [place] [address] [employer] Work Phone: Protime-INRon 04-11-2020 INR Coag (PPP) [Relative time] 3.2 {INR} [facility], [place] Comment on above: Recommended Anticoag ulant Therapy: SEE BELOW ----- INR of 2.0 - 3.0 : - Prophylaxis of Venous Thrombosis (high-risk surgery) - Treatment of Venous Thrombosis - Treatment of Pulmonary Embolism (Includes tissue heart valves, Acute Myocardial Infarction to prevent systemic embolism, Valvular Heart Disease, and Atrial Fibrillation) ----- INR of 2.5 - 3.5 : - Mechanical Prosthetic Valves (high risk) - If oral anticoagulant therapy is used to prevent Myocardial Infarction Interpretation and review of laboratory results Abnormal [place] PT Coag (PPP) [Time] 32.4 s High 9 - 12 s [place], [place] Comment on above: . Test Performed by [facility], [address] , [address] Protime-INRon 04-02-2020 INR Coag (PPP) [Relative time] 2.2 {INR} [place] Comment on above: Recommended Anticoag ulant Therapy: SEE BELOW ----- INR of 2.0 - 3.0 : - Prophylaxis of Venous Thrombosis (high-risk surgery) - Treatment of Venous Thrombosis - Treatment of Pulmonary Embolism (Includes tissue heart valves, Acute Myocardial Infarction to prevent systemic embolism, Valvular Heart Disease, and Atrial Fibrillation) ----- INR of 2.5 - 3.5 : - Mechanical Prosthetic Valves (high risk) - If oral anticoagulant therapy is used to prevent Myocardial Infarction Interpretation and review of laboratory results Abnormal [place] PT Coag (PPP) [Time] 23.1 s High 9 - 12 s [place] Comment on above: . Test Performed by [facility], [address] , [address] Protime-INRon 03-28-2020 INR Coag (PPP) [Relative time] 5.7 {INR} Critically [place] Comment on above: verified by repeat a nalysis Recommended Anticoagulant Therapy: SEE BELOW ----- INR of 2.0 - 3.0 : - Prophylaxis of Venous Thrombosis (high-risk surgery) - Treatment of Venous Thrombosis - Treatment of Pulmonary Embolism (Includes tissue heart valves, Acute Myocardial Infarction to prevent systemic embolism, Valvular Heart Disease, and Atrial Fibrillation) ----- INR of 2.5 - 3.5 : - Mechanical Prosthetic Valves (high risk) - If oral anticoagulant therapy is used to prevent Myocardial Infarction Interpretation and review of laboratory results Abnormal [place] PT Coag (PPP) [Time] 56 s High 9 - 12 s [place] Comment on above: . Test Performed by [facility], [address] , [address] Protime-INRon 03-18-2020 INR Coag (PPP) [Relative time] 2.3 {INR} [place] Comment on above: Recommended Anticoag ulant Therapy: SEE BELOW ----- INR of 2.0 - 3.0 : - Prophylaxis of Venous Thrombosis (high-risk surgery) - Treatment of Venous Thrombosis - Treatment of Pulmonary Embolism (Includes tissue heart valves, Acute Myocardial Infarction to prevent systemic embolism, Valvular Heart Disease, and Atrial Fibrillation) ----- INR of 2.5 - 3.5 : - Mechanical Prosthetic Valves (high risk) - If oral anticoagulant therapy is used to prevent Myocardial Infarction Interpretation and review of laboratory results Abnormal [place] PT Coag (PPP) [Time] 23.8 s High 9 - 12 s [place], [place] Comment on above: . Test Performed by [facility], [address] , [address] Protime-INRon 03-12-2020 INR Coag (PPP) [Relative time] 5.1 {INR} [place] Comment on above: Checked and verified by repeat analysis. Recommended Anticoagulant Therapy: SEE BELOW ----- INR of 2.0 - 3.0 : - Prophylaxis of Venous Thrombosis (high-risk surgery) - Treatment of Venous Thrombosis - Treatment of Pulmonary Embolism (Includes tissue heart valves, Acute Myocardial Infarction to prevent systemic embolism, Valvular Heart Disease, and Atrial Fibrillation) ----- INR of 2.5 - 3.5 : - Mechanical Prosthetic Valves (high risk) - If oral anticoagulant therapy is used to prevent Myocardial Infarction Interpretation and review of laboratory results Abnormal [place] PT Coag (PPP) [Time] 50.8 s High 9 - 12 s [place] Comment on above: . Test Performed by [facility], [address] , [address] Protime-INRon 02-20-2020 INR Coag (PPP) [Relative time] 3.1 {INR} [place] Comment on above: Recommended Anticoag ulant Therapy: SEE BELOW ----- INR of 2.0 - 3.0 : - Prophylaxis of Venous Thrombosis (high-risk surgery) - Treatment of Venous Thrombosis - Treatment of Pulmonary Embolism (Includes tissue heart valves, Acute Myocardial Infarction to prevent systemic embolism, Valvular Heart Disease, and Atrial Fibrillation) ----- INR of 2.5 - 3.5 : - Mechanical Prosthetic Valves (high risk) - If oral anticoagulant therapy is used to prevent Myocardial Infarction Interpretation and review of laboratory results Abnormal [place] PT Coag (PPP) [Time] 31.4 s High 9 - 12 s [place] Comment on above: . Test Performed by [facility], [address] , [address] Hematologyon 02-01-2020 INR Coag (PPP) [Relative time] 2.1 {INR} [place] Comment on above: Recommended Anticoag ulant Therapy: SEE BELOW ----- INR of 2.0 - 3.0 : - Prophylaxis of Venous Thrombosis (high-risk surgery) - Treatment of Venous Thrombosis - Treatment of Pulmonary Embolism (Includes tissue heart valves, Acute Myocardial Infarction to prevent systemic embolism, Valvular Heart Disease, and Atrial Fibrillation) ----- INR of 2.5 - 3.5 : - Mechanical Prosthetic Valves (high risk) - If oral anticoagulant therapy is used to prevent Myocardial Infarction PT Coag (PPP) [Time] 21.5 s High 9 - 12 s [place] Comment on above: . Otheron 02-01-2020 Interpretation and review of laboratory results Abnormal [place] Test Performed by [facility], [address] , [address] Protime-INRon 01-25-2020 INR Coag (PPP) [Relative time] 1.1 {INR} [place] Comment on above: Recommended Anticoag ulant Therapy: SEE BELOW ----- INR of 2.0 - 3.0 : - Prophylaxis of Venous Thrombosis (high-risk surgery) - Treatment of Venous Thrombosis - Treatment of Pulmonary Embolism (Includes tissue heart valves, Acute Myocardial Infarction to prevent systemic embolism, Valvular Heart Disease, and Atrial Fibrillation) ----- INR of 2.5 - 3.5 : - Mechanical Prosthetic Valves (high risk) - If oral anticoagulant therapy is used to prevent Myocardial Infarction PT Coag (PPP) [Time] 11.6 s 9 - 12 s [facility], [place] Comment on above: . Test Performed by [facility], [address] , [address], [facility] DIGITAL DIAGNOSTIC BILATERALon 11-27-2019 Patient Name: ALTA MOYA ---Mammography--- Exam Date/Time 11/27/2019 08:56:22 EDT Exam MG Breast Tomosynthesis BI Ordering Physician DO IBARRA EUGENE F. Accession Number [id number] CPT4 Codes 26499 (MG Breast Tomosynthesis BI), 77156 (MG MAMMO 2D DIAG BILAT) Reason For Exam abnormal mammogram Report TIME SINCE LAST MAMMOGRAM: Last mammogram was performed 1 year ago. REASON FOR EXAM: follow-up at short interval from prior study. PROCEDURE: MG BREAST TOMOSYNTHESIS BL: 2019 - 2D/3D Procedure 3D Bilateral CC and MLO view(s) were taken. 2D Bilateral CC and MLO view(s) were taken. TISSUE DENSITY: BIRADS B - There are scattered fibroglandular densities. . FINDINGS: Patient presents for follow-up of a probably benign finding. The previously described finding the upper outer quadrant was felt to be the sequela of injury to the breast which resulted in significant scarring and an area of focal asymmetry. Overall, the area of focal asymmetry appears slightly smaller and contracted. There are no new suspicious findings associated with the area of focal asymmetry. No mammographic evidence of malignancy in the left breast. Impression: No change in the focal asymmetry in the upper outer quadrant of the right breast favored to represent the sequela of previous trauma. A bilateral diagnostic mammogram is recommended in one year to document 2 year stability. Markings on images: BB's = Nipples; skin lesions Open [place] = Palpable Line = Scar 2D digital mammography and tomosynthesis imaging were performed and reviewed with CAD. ASSESSMENT: Category 3 Probably benign RECOMMENDATION: Follow-up diagnostic mammogram of both breasts in 1 year. . Report Dictated on --- Final --- Signed Date and Time: 11/27/2019 9:30 am Signed by: MD AZUCENA, [place]- [place], [place], [facility] Incoming Radiology Results From [facility] - 11/27/2019 3:29 PM EDT Patient Name: ALTA BAKER ---Mammography--- Exam Date/Time 11/27/2019 08:56:22 EDT Exam MG Breast Tomosynthesis BI Ordering Physician DO IBARRA EUGENE F. Accession Number [id number] CPT4 Codes 60398 (MG Breast Tomosynthesis BI), 98900 (MG MAMMO 2D DIAG BILAT) Reason For Exam abnormal mammogram Report TIME SINCE LAST MAMMOGRAM: Last mammogram was performed 1 year ago. REASON FOR EXAM: follow-up at short interval from prior study. PROCEDURE: MG BREAST TOMOSYNTHESIS BL: 2019 - 2D/3D Procedure 3D Bilateral CC and MLO view(s) were taken. 2D Bilateral CC and MLO view(s) were taken. TISSUE DENSITY: BIRADS B - There are scattered fibroglandular densities. . FINDINGS: Patient presents for follow-up of a probably benign finding. The previously described finding the upper outer quadrant was felt to be the sequela of injury to the breast which resulted in significant scarring and an area of focal asymmetry. Overall, the area of focal asymmetry appears slightly smaller and contracted. There are no new suspicious findings associated with the area of focal asymmetry. No mammographic evidence of malignancy in the left breast. Impression: No change in the focal asymmetry in the upper outer quadrant of the right breast favored to represent the sequela of previous trauma. A bilateral diagnostic mammogram is recommended in one year to document 2 year stability. Markings on images: BB's = Nipples; skin lesions Open [place] = Palpable Line = Scar 2D digital mammography and tomosynthesis imaging were performed and reviewed with CAD. ASSESSMENT: Category 3 Probably benign RECOMMENDATION: Follow-up diagnostic mammogram of both breasts in 1 year. . Report Dictated on --- Final --- Signed Date and Time: 11/27/2019 9:30 am Signed by: MD WHITTAKER TOM A [place], [place] Protime-INRon 09-21-2019 INR Coag (PPP) [Relative time] 2.6 {INR} [place] Comment on above: Recommended Anticoag ulant Therapy: SEE BELOW ----- INR of 2.0 - 3.0 : - Prophylaxis of Venous Thrombosis (high-risk surgery) - Treatment of Venous Thrombosis - Treatment of Pulmonary Embolism (Includes tissue heart valves, Acute Myocardial Infarction to prevent systemic embolism, Valvular Heart Disease, and Atrial Fibrillation) ----- INR of 2.5 - 3.5 : - Mechanical Prosthetic Valves (high risk) - If oral anticoagulant therapy is used to prevent Myocardial Infarction Interpretation and review of laboratory results Abnormal [place] PT Coag (PPP) [Time] 26.8 s High 9 - 12 s [place], [place] Comment on above: . Test Performed by [facility], [address] Protime-INRon 07-04-2019 INR Coag (PPP) [Relative time] 2.8 {INR} [place], [place] Comment on above: Test Performed by [facility], [address] [place] [address] Recommended Anticoagulant Therapy: SEE BELOW ----- INR of 2.0 - 3.0 : - Prophylaxis of Venous Thrombosis (high-risk surgery) - Treatment of Venous Thrombosis - Treatment of Pulmonary Embolism (Includes tissue heart valves, Acute Myocardial Infarction to prevent systemic embolism, Valvular Heart Disease, and Atrial Fibrillation) ----- INR of 2.5 - 3.5 : - Mechanical Prosthetic Valves (high risk) - If oral anticoagulant therapy is used to prevent Myocardial Infarction Interpretation and review of laboratory results Abnormal [place] PT Coag (PPP) [Time] 28.7 s High 9 - 12 s [place], [place] Comment on above: . Test Performed by [facility], [address] , [place], [place] [address] [place], [place] CBC Auto Differentialon 03-0 Absolute Baso # 0.1 10*3/uL 0 - 0.2 10*3/uL [place] Absolute Neut # 6.1 10*3/uL 1.8 - 7 10*3/uL [place] Basophils/100 WBC (Bld) 0.6 % 0 - 2 % [place] Eosinophils (Bld) [#/Vol] 0.1 10*3/uL 0 - 0.5 10*3/uL [place] Eosinophils/100 WBC (Bld) 1.2 % 1 - 6 % [place] Erythrocyte distribution width (RBC) [Ratio] 14.9 % High 11.5 - 14.5 % [place], [place] Granulocytes/100 WBC (Bld) 61.4 % 40 - 80 % [place] Hematocrit (Bld) [Volume fraction] 39.4 % 35 - 47 % [place] Hemoglobin (Bld) [Mass/Vol] 13.3 g/dL 11.7 - 16 g/dL [place] Interpretation and review of laboratory results Abnormal [place] Lymphocytes (Bld) [#/Vol] 2.0 10*3/uL 1 - 4.3 10*3/uL [place] Lymphocytes/100 WBC (Bld) 20.1 % 20 - 40 % [place] MCH (RBC) [Entitic mass] 27.9 pg 26 - 34 pg [place] MCHC (RBC) [Mass/Vol] 33.7 % 32 - 36 % [place], [place] MCV (RBC) [Entitic vol] 82.7 fL 79 - 98 fL [place] Monocytes (Bld) [#/Vol] 1.6 10*3/uL High 0 - 0.8 10*3/uL [place] Monocytes/100 WBC (Bld) 16.7 % High 2 - 10 % [place] Platelet mean volume (Bld) [Entitic vol] 9.8 fL 7.4 - 10.4 fL [place] Platelets (Bld) [#/Vol] 180 10*3/uL 140 - 440 10*3/uL [place] RBC (Bld) [#/Vol] 4.76 10*6/uL 3.8 - 5.2 10*6/uL [place] WBC (Bld) [#/Vol] 9.9 10*3/uL 3.6 - 10.7 10*3/uL [place] Test Performed by [facility], [address] , [place], [place] [id number] [place] [address] Comprehensive Metabolic Pane amaury 05-19-2019 Albumin [Mass/Vol] 4.3 g/dL 3.5 - 5 g/dL [place], [place] ALP [Catalytic activity/Vol] 72 U/L 38 - 126 U/L [place] ALT [Catalytic activity/Vol] 43 U/L 13 - 69 U/L [place] Anion gap [Moles/Vol] 9 mmol/L [place], [place] AST [Catalytic activity/Vol] 24 U/L 15 - 46 U/L [place] Bilirubin Ql (U) 0.6 mg/dL 0.2 - 1.3 mg/dL [place] Calcium [Mass/Vol] 9.5 mg/dL 8.4 - 10. 4 mg/dL [place] Chloride [Moles/Vol] 99 mmol/L 98 - 10 7 mmol/L [place] CO2 [Moles/Vol] 31 mmol/L High 22 - 30 mmol/L [place] Creatinine [Mass/Vol] 0.83 mg/dL 0.52 - 1.25 mg/dL [place] EGFR IF NonAfrican [place]ian >60.0 >60 mL/min [place], [place] Comment on above: Source- MDRD equatio n with creatinine calibration to IDMS(NKDEP) eGFR not recommended for drug dose adjustment GFR/1.73 sq M predicted among blacks MDRD (S/P/Bld) [Vol rate/Area] mL/min/{1.73_m2} >60 mL/min [place] Glucose [Mass/Vol] 110 mg/dL High 70 - 100 mg/dL [place] Potassium [Moles/Vol] 4.2 mmol/L 3.5 - 5.1 mmol/L [place] Protein [Mass/Vol] 7.2 g/dL 6.3 - 8.2 g/dL [place] Sodium [Moles/Vol] 139 mmol/L 135 - 145 mmol/L [place] Urea nitrogen [Mass/Vol] 15 mg/dL 7 - 20 mg/dL [place] Lipid Panelon 05-19-2019 Cholesterol [Mass/Vol] 131 mg/dL <200 [place], [place] Cholesterol in HDL [Mass/Vol] 34 mg/dL Low 40 - 60 mg/dL [place] Cholesterol in LDL [Mass/Vol] 66 mg/dL <100 [place] Cholesterol.total/Chol esterol in HDL [Mass ratio] 4 {ratio} [place], [place] Comment on above: Ref Range: < 3 Low Risk for CHD 3-6 Mod Risk for CHD > 6 High Risk for CHD Triglyceride [Mass/Vol] 154 mg/dL Abnormal <150 [place], [place] Otheron 05-19-2019 Interpretation and review of laboratory results Abnormal [place] Test Performed by [facility], [facility] , [address] Protime-INRon 05-19-2019 INR Coag (PPP) [Relative time] 2.4 {INR} [place] Comment on above: Recommended Anticoag ulant Therapy: SEE BELOW ----- INR of 2.0 - 3.0 : - Prophylaxis of Venous Thrombosis (high-risk surgery) - Treatment of Venous Thrombosis - Treatment of Pulmonary Embolism (Includes tissue heart valves, Acute Myocardial Infarction to prevent systemic embolism, Valvular Heart Disease, and Atrial Fibrillation) ----- INR of 2.5 - 3.5 : - Mechanical Prosthetic Valves (high risk) - If oral anticoagulant therapy is used to prevent Myocardial Infarction Interpretation and review of laboratory results Abnormal [place] PT Coag (PPP) [Time] 23.8 s High 9 - 12 s [place], [place] Comment on above: . Test Performed by [facility], [address] , [address] TSH without Reflexon 020 Interpretation and review of laboratory results Abnormal [place] TSH Qn 5.160 u[IU]/mL High 0.465 - 4.68 u[IU]/mL [place] Test Performed by [facility], [address] , [address] Protime-INRon 04-25-2019 INR Coag (PPP) [Relative time] 3.4 {INR} [place] [employer] Work Phone: Comment on above: Recommended Anticoag ulant Therapy: SEE BELOW ----- INR of 2.0 - 3.0 : - Prophylaxis of Venous Thrombosis (high-risk surgery) - Treatment of Venous Thrombosis - Treatment of Pulmonary Embolism (Includes tissue heart valves, Acute Myocardial Infarction to prevent systemic embolism, Valvular Heart Disease, and Atrial Fibrillation) ----- INR of 2.5 - 3.5 : - Mechanical Prosthetic Valves (high risk) - If oral anticoagulant therapy is used to prevent Myocardial Infarction Interpretation and review of laboratory results Abnormal [facility] Work Phone: PT Coag (PPP) [Time] 33.4 s High 9 - 12 s [facility] Work Phone: Comment on above: . Test Performed by [facility], [address] , [place] [address] [employer] Work Phone: Protime-INROrdered By: Ronel Ly on 03-20-2019 INR Coag (PPP) [Relative time] 2.4 {INR} [place] [employer] Work Phone: Comment on above: Recommended Anticoag ulant Therapy: SEE BELOW ----- INR of 2.0 - 3.0 : - Prophylaxis of Venous Thrombosis (high-risk surgery) - Treatment of Venous Thrombosis - Treatment of Pulmonary Embolism (Includes tissue heart valves, Acute Myocardial Infarction to prevent systemic embolism, Valvular Heart Disease, and Atrial Fibrillation) ----- INR of 2.5 - 3.5 : - Mechanical Prosthetic Valves (high risk) - If oral anticoagulant therapy is used to prevent Myocardial Infarction Interpretation and review of laboratory results [facility] Work [facility]: PT Coag (PPP) [Time] 24.4 s High 9 - 12 s [facility] Work Phone: Comment on above: . Test Performed by [facility], [address] , [place], [place] [id number] [place] [address] Work Phone: Protime-INRon 02-06-2019 INR Coag (PPP) [Relative time] 2.3 {INR} [place] Comment on above: Recommended Anticoag ulant Therapy: SEE BELOW ----- INR of 2.0 - 3.0 : - Prophylaxis of Venous Thrombosis (high-risk surgery) - Treatment of Venous Thrombosis - Treatment of Pulmonary Embolism (Includes tissue heart valves, Acute Myocardial Infarction to prevent systemic embolism, Valvular Heart Disease, and Atrial Fibrillation) ----- INR of 2.5 - 3.5 : - Mechanical Prosthetic Valves (high risk) - If oral anticoagulant therapy is used to prevent Myocardial Infarction Interpretation and review of laboratory results Abnormal [place] PT Coag (PPP) [Time] 23.4 s High 9 - 12 s [place] Comment on above: . Test Performed by [facility], [address] , [address] Protime-INRon 02-03-2019 INR Coag (PPP) [Relative time] 3.6 {INR} [place] Comment on above: Recommended Anticoag ulant Therapy: SEE BELOW ----- INR of 2.0 - 3.0 : - Prophylaxis of Venous Thrombosis (high-risk surgery) - Treatment of Venous Thrombosis - Treatment of Pulmonary Embolism (Includes tissue heart valves, Acute Myocardial Infarction to prevent systemic embolism, Valvular Heart Disease, and Atrial Fibrillation) ----- INR of 2.5 - 3.5 : - Mechanical Prosthetic Valves (high risk) - If oral anticoagulant therapy is used to prevent Myocardial Infarction Interpretation and review of laboratory results Abnormal [place] PT Coag (PPP) [Time] 35.6 s High 9 - 12 s [place], [place] Comment on above: . Test Performed by [facility], [address] , [address] Protime-INRon 01-06-2019 INR Coag (PPP) [Relative time] 1.9 {INR} [place] Comment on above: Recommended Anticoag ulant Therapy: SEE BELOW ----- INR of 2.0 - 3.0 : - Prophylaxis of Venous Thrombosis (high-risk surgery) - Treatment of Venous Thrombosis - Treatment of Pulmonary Embolism (Includes tissue heart valves, Acute Myocardial Infarction to prevent systemic embolism, Valvular Heart Disease, and Atrial Fibrillation) ----- INR of 2.5 - 3.5 : - Mechanical Prosthetic Valves (high risk) - If oral anticoagulant therapy is used to prevent Myocardial Infarction Interpretation and review of laboratory results Abnormal [place] PT Coag (PPP) [Time] 19.3 s High 9 - 12 s [place] Comment on above: . Test Performed by [facility], [address] , [address] Protime-INRon 10-25-2018 INR Coag (PPP) [Relative time] 2.4 {INR} [place] Comment on above: Recommended Anticoag ulant Therapy: SEE BELOW ----- INR of 2.0 - 3.0 : - Prophylaxis of Venous Thrombosis (high-risk surgery) - Treatment of Venous Thrombosis - Treatment of Pulmonary Embolism (Includes tissue heart valves, Acute Myocardial Infarction to prevent systemic embolism, Valvular Heart Disease, and Atrial Fibrillation) ----- INR of 2.5 - 3.5 : - Mechanical Prosthetic Valves (high risk) - If oral anticoagulant therapy is used to prevent Myocardial Infarction Interpretation and review of laboratory results Abnormal [place] PT Coag (PPP) [Time] 24.8 s High 9 - 12 s [place] Comment on above: . Test Performed by [facility], [address] , [address] No Panel Information Respiratory Panel (PCR) RSV A [facility] Work Phone: Respiratory Panel (PCR) RSV B [facility] Work Phone: SARS-CoV-2 & FLU Antigen (Rapid) [facility] Work Phone: [phone] Streptococcus pneumoniae Antigen (M [facility] Work Phone: Vital Signs Date Time Vital Sign Value Performing Clinician Facility 08-09-2024 14:26-0400 Body temperature 96.91 [degF] Miranda Doni [employer] C[employer]DESKTOP ENGINEER Work Phone: [facility] 08-09-2024 14:26-0400 Body weight 100.1 kg Miranda Doni [employer] LIFT CUTTER.DESKTOP ENGINEER Work Phone: [facility] 08-09-2024 14:26-0400 Diastolic blood pressure 72 mm[Hg] Miranda Doni [employer] LIFT CUTTER.DESKTOP ENGINEER Work Phone: [facility] 08-09-2024 14:26-0400 Heart rate 100 /min Miranda Doni [employer] LIFT CUTTER.DESKTOP ENGINEER Work Phone: [facility] 08-09-2024 14:26-0400 Respiratory rate 20 /min Miranda Doni TOP LIFT CUTTER.DESKTOP ENGINEER Work Phone: [facility] 08-09-2024 14:26-0400 SaO2% (BldA) [Mass fraction] 92 % Miranda Dnoi TOP LIFT CUTTER.DESKTOP ENGINEER Work Phone: [facility] 08-09-2024 14:26-0400 Systolic blood pressure 122 mm[Hg] Miranda Doni TOP LIFT CUTTER.DESKTOP ENGINEER Work Phone: [facility] 07-31-2024 12:08-0400 Diastolic blood pressure 64 mm[Hg] Benita Moon MD Work Phone: [facility] 07-31-2024 12:08-0400 Systolic blood pressure 136 mm[Hg] Benita Moon MD Work Phone: [facility] 07-31-2024 11:34-0400 Body height 149.9 cm Benita Moon MD Work Phone: [facility] 07-31-2024 11:34-0400 Body mass index (BMI) [Ratio] 43.71 kg/m2 Benita Moon MD Work Phone: [facility] 07-31-2024 11:34-0400 Body weight 98.16 kg Benita Moon MD Work Phone: [facility] 07-31-2024 11:34-0400 Heart rate 98 /min Benita Moon MD Work Phone: [facility] 07-31-2024 11:34-0400 SaO2% (BldA) [Mass fraction] 94 % Benita Moon MD Work Phone: [facility] 06-19-2024 10:41-0400 Diastolic blood pressure 78 mm[Hg] Kory Jimeneza DO Work Phone: [facility] 06-19-2024 10:41-0400 Heart rate 92 /min Kory Jimeneza DO Work Phone: [facility] 06-19-2024 10:41-0400 Respiratory rate 16 /min Kory Jimeneza DO Work Phone: [facility] 06-19-2024 10:41-0400 Systolic blood pressure 126 mm[Hg] Kory Jimeneza DO Work Phone: [facility] 06-19-2024 10:06-0400 Body height 149.9 cm Kory Higginbothamlla DO Work Phone: [facility] 06-19-2024 10:06-0400 Body mass index (BMI) [Ratio] 40.31 kg/m2 Kory Higgnibothamlla DO Work Phone: [facility] 06-19-2024 10:06-0400 Body temperature 97.59 [degF] Kory Higginbothamlla DO Work Phone: [facility] 06-19-2024 10:06-0400 Body weight 90.54 kg Kory Higginbothamlla DO Work Phone: [facility] 06-19-2024 10:06-0400 SaO2% (BldA) [Mass fraction] 96 % Kory Neftalylla DO Work Phone: [facility] 06-05-2024 16:00-0400 Body temperature 97.9 [degF] Dr. Davis Irene DO Work Phone: [facility] 06-05-2024 16:00-0400 Diastolic blood pressure 65 mm[Hg] Dr. Davis Irene DO Work Phone: [facility] 06-05-2024 16:00-0400 Heart rate 85 /min Dr. Davis Irene DO Work Phone: [facility] 06-05-2024 16:00-0400 Respiratory rate 17 /min Dr. Davis Irene DO Work Phone: [facility] 06-05-2024 16:00-0400 SaO2% (BldA) [Mass fraction] 98 % Dr. Davis Irene DO Work Phone: [facility] 06-05-2024 16:00-0400 Systolic blood pressure 133 mm[Hg] Dr. Davis Irene DO Work Phone: [facility] 06-05-2024 14:00-0400 Inhaled oxygen flow rate 2 L/min Dr. Davis Irene DO Work Phone: [facility] 06-05-2024 00:00-0400 Inhaled oxygen concentration 30 % Dr. Davis Irene DO Work Phone: [facility] 06-03-2024 08:39-0400 Body height 149.[address] Davis Irene DO Work Phone: [facility] 06-03-2024 08:39-0400 Body weight 98.[address] Davis Irene DO Work Phone: [facility] 06-02-2024 15:35-0400 Body mass index (BMI) [Ratio] 43.7 kg/m2 Dr. Davis Irene DO Work Phone: [facility] 06-02-2024 14:13-0400 Body temperature 98.1 [degF] Dr. Davis Irene DO Work Phone: [facility] 06-02-2024 14:13-0400 Diastolic blood pressure 93 mm[Hg] Dr. Davis Irene DO Work Phone: [facility] 06-02-2024 14:13-0400 Heart rate 108 /min Dr. Davis Irene DO Work Phone: [facility] 06-02-2024 14:13-0400 Respiratory rate 24 /min Dr. Davis Irene DO Work Phone: [facility] 06-02-2024 14:13-0400 SaO2% (BldA) [Mass fraction] 97 % Dr. Davis Irene DO Work Phone: [facility] 06-02-2024 14:13-0400 Systolic blood pressure 148 mm[Hg] Dr. Davis Irene DO Work Phone: [facility] 06-02-2024 13:22-0400 Inhaled oxygen concentration 30 % Dr. Davis Irene DO Work Phone: [facility] 06-02-2024 10:33-0400 Body height 149.[address] Davis Irene DO Work Phone: [facility] 06-02-2024 10:33-0400 Body mass index (BMI) [Ratio] 45.4 kg/m2 Dr. Davis Irene DO Work Phone: [facility] 06-02-2024 10:33-0400 Body weight 102.[address] Davis Irene DO Work Phone: [facility] 05-31-2024 10:04-0400 Body height 149.9 cm Chelo Noriega CNP Work Phone: [facility] 05-31-2024 10:04-0400 Body mass index (BMI) [Ratio] 44.64 kg/m2 Chelo Noriega CNP Work Phone: [facility] 05-31-2024 10:04-0400 Body weight 100.25 kg Chelo Huitron TOP LIFT CUTTER - DESKTOP ENGINEER Work Phone: [facility] 05-31-2024 10:04-0400 Diastolic blood pressure 74 mm[Hg] Cehlo Huitron [employer] LIFT CUTTER - DESKTOP ENGINEER Work Phone: [facility] 05-31-2024 10:04-0400 Heart rate 96 /min Chelo Huitron [employer] LIFT CUTTER - DESKTOP ENGINEER Work Phone: [facility] 05-31-2024 10:04-0400 Respiratory rate 15 /min Chelo Huitron [employer] LIFT CUTTER - DESKTOP ENGINEER Work Phone: [facility] 05-31-2024 10:04-0400 Systolic blood pressure 122 mm[Hg] Chelo Huitron [employer] LIFT CUTTER - DESKTOP ENGINEER Work Phone: [facility] 05-25-2024 15:32-0400 Body mass index (BMI) [Ratio] 43.5 kg/m2 Dr. Davis Irene DO Work Phone: [facility] 05-25-2024 15:32-0400 Body temperature 98.2 [degF] Dr. Davis Irene DO Work Phone: [facility] 05-25-2024 15:32-0400 Body weight 97.[address] Davis Irene DO Work Phone: [facility] 05-25-2024 15:32-0400 Diastolic blood pressure 76 mm[Hg] Dr. Davis Irene DO Work Phone: [facility] 05-25-2024 15:32-0400 Heart rate 139 /min Dr. Davis Irene DO Work Phone: [facility] 05-25-2024 15:32-0400 SaO2% (BldA) [Mass fraction] 92 % Dr. Davis Irene DO Work Phone: [facility] 05-25-2024 15:32-0400 Systolic blood pressure 122 mm[Hg] Dr. Davis Irene DO Work Phone: [facility] 05-08-2024 17:00-0500 Heart rate 113 /min Oswaldo Carpenter DO Work Phone: [facility] 05-08-2024 17:00-0500 Respiratory rate 16 /min Oswaldo Carpenter DO Work Phone: [facility] 05-08-2024 17:00-0500 SaO2% (BldA) [Mass fraction] 90 % Oswaldo Carpenter DO Work Phone: [facility] 05-08-2024 11:41-0500 Diastolic blood pressure 44 mm[Hg] Oswaldo Carpenter DO Work Phone: [facility] 05-08-2024 11:41-0500 Systolic blood pressure 135 mm[Hg] Oswaldo Carpenter DO Work Phone: [facility] 05-08-2024 11:26-0500 Body height 149.9 cm Oswaldo Carpenter DO Work Phone: [facility] 05-08-2024 11:26-0500 Body mass index (BMI) [Ratio] 43.63 kg/m2 Oswaldo Carpenter DO Work Phone: [facility] 05-08-2024 11:26-0500 Body weight 97.98 kg Oswaldo Carpenter DO Work Phone: [facility] 05-08-2024 08:00-0500 Body temperature 97.81 [degF] Oswaldo Carpenter DO Work Phone: [facility] 05-02-2024 18:45-0500 SaO2% (BldA) [Mass fraction] 95.8 % Oswaldo Carpenter DO Work Phone: [facility] 04-27-2024 09:10-0500 Body height 149.9 cm Benita Moon MD Work Phone: [facility] 04-27-2024 09:10-0500 Body mass index (BMI) [Ratio] 40.23 kg/m2 Benita Moon MD Work Phone: [facility] 04-27-2024 09:10-0500 Body weight 90.36 kg Benita Moon MD Work Phone: [facility] 04-27-2024 09:10-0500 Diastolic blood pressure 70 mm[Hg] Benita Moon MD Work Phone: [facility] 04-27-2024 09:10-0500 Heart rate 60 /min Benita Moon MD Work Phone: [facility] 04-27-2024 09:10-0500 SaO2% (BldA) [Mass fraction] 95 % Benita Moon MD Work Phone: [facility] 04-27-2024 09:10-0500 Systolic blood pressure 130 mm[Hg] Benita Moon MD Work Phone: [facility] 04-03-2024 10:17-0500 Body height 152.4 cm Kory Ibarra DO Work Phone: [facility] 04-03-2024 10:17-0500 Body mass index (BMI) [Ratio] 41.01 kg/m2 Kory Jimeneza DO Work Phone: [facility] 04-03-2024 10:17-0500 Body temperature 97.2 [degF] Kory Jimeneza DO Work Phone: [facility] 04-03-2024 10:17-0500 Body weight 95.25 kg Kory Jimeneza DO Work Phone: [facility] 04-03-2024 10:17-0500 Diastolic blood pressure 70 mm[Hg] Kory Jimeneza DO Work Phone: [facility] 04-03-2024 10:17-0500 Heart rate 73 /min Kory Jimeneza DO Work Phone: [facility] 04-03-2024 10:17-0500 SaO2% (BldA) [Mass fraction] 98 % Kory Jimeneza DO Work Phone: [facility] 04-03-2024 10:17-0500 Systolic blood pressure 104 mm[Hg] Kory Ibarra DO Work Phone: [facility] 02-22-2024 07:59-0500 Body temperature 97 [degF] Brina Rocha DO Work Phone: [facility] 02-22-2024 07:59-0500 Diastolic blood pressure 69 mm[Hg] Brina Rocha DO Work Phone: [facility] 02-22-2024 07:59-0500 Heart rate 96 /min Brina Rocha DO Work Phone: [facility] 02-22-2024 07:59-0500 Respiratory rate 21 /min Brina Rocha DO Work Phone: [facility] 02-22-2024 07:59-0500 SaO2% (BldA) [Mass fraction] 95 % Brina Rocha DO Work Phone: [facility] 02-22-2024 07:59-0500 Systolic blood pressure 159 mm[Hg] Brina Rocha DO Work Phone: [facility] 02-21-2024 06:00-0500 Body mass index (BMI) [Ratio] 49.08 kg/m2 Brina Rocha DO Work Phone: [facility] 02-21-2024 06:00-0500 Body weight 114 kg Brina Rocha DO Work Phone: [facility] 02-17-2024 10:04-0500 Body height 152.4 cm Brina Rocha DO Work Phone: [facility] 02-14-2024 11:46-0500 Body height 152.4 cm Curt Last PA-C Work Phone: [facility] 02-14-2024 11:46-0500 Body temperature 97.2 [degF] Curt Last PA-C Work Phone: [facility] 02-14-2024 11:46-0500 Diastolic blood pressure 62 mm[Hg] Curt Last PA-C Work Phone: [facility] 02-14-2024 11:46-0500 Heart rate 74 /min Curt Last PA-C Work Phone: [facility] 02-14-2024 11:46-0500 SaO2% (BldA) [Mass fraction] 90 % Curt Last PA-C Work Phone: [facility] 02-14-2024 11:46-0500 Systolic blood pressure 122 mm[Hg] Curt Last PA-C Work Phone: [facility] 02-11-2024 20:17-0500 Body height 152.4 cm Elias Nesheim DO Work Phone: [facility] 02-11-2024 20:17-0500 Body mass index (BMI) [Ratio] 48.82 kg/m2 Elias Nesheim DO Work Phone: [facility] 02-11-2024 20:17-0500 Body temperature 98.2 [degF] Elias Nesheim DO Work Phone: [facility] 02-11-2024 20:17-0500 Body weight 113.4 kg Elias Nesheim DO Work Phone: [facility] 02-11-2024 20:17-0500 Diastolic blood pressure 111 mm[Hg] Elias Nesheim DO Work Phone: [facility] 02-11-2024 20:17-0500 Heart rate 84 /min Elias Nesheim DO Work Phone: [facility] 02-11-2024 20:17-0500 Respiratory rate 18 /min Elias Nesheim DO Work Phone: [facility] 02-11-2024 20:17-0500 SaO2% (BldA) [Mass fraction] 94 % Elias Nesheim DO Work Phone: [facility] 02-11-2024 20:17-0500 Systolic blood pressure 163 mm[Hg] Elias Nesheim DO Work Phone: [facility] 02-04-2024 21:56-0500 Diastolic blood pressure 96 mm[Hg] Kellie Maldonado DO Work Phone: [facility] 02-04-2024 21:56-0500 Heart rate 102 /min Kellie Maldonado DO Work Phone: [facility] 02-04-2024 21:56-0500 Respiratory rate 20 /min Kellie Maldonado DO Work Phone: [facility] 02-04-2024 21:56-0500 SaO2% (BldA) [Mass fraction] 92 % Kellie Maldonado DO Work Phone: [facility] 02-04-2024 21:56-0500 Systolic blood pressure 157 mm[Hg] Kellie Maldonado DO Work Phone: [facility] 02-04-2024 20:34-0500 Body mass index (BMI) [Ratio] 50.49 kg/m2 Kellie Maldonado DO Work Phone: [facility] 02-04-2024 20:34-0500 Body temperature 98.1 [degF] Kellie Maldonado DO Work Phone: [facility] 02-04-2024 20:34-0500 Body weight 113.4 kg Kellie Maldonado DO Work Phone: [facility] 02-04-2024 19:20-0500 Body temperature 97.7 [degF] Pao Elias APRN.DESKTOP ENGINEER Work Phone: [facility] 02-04-2024 19:20-0500 Body weight 116.6 kg Pao Elias APRN.DESKTOP ENGINEER Work Phone: [facility] 02-04-2024 19:20-0500 Diastolic blood pressure 86 mm[Hg] Pao Elias APRN.DESKTOP ENGINEER Work Phone: [facility] 02-04-2024 19:20-0500 Heart rate 88 /min Pao Elias APRN.DESKTOP ENGINEER Work Phone: [facility] 02-04-2024 19:20-0500 Respiratory rate 24 /min Pao Elias APRN.DESKTOP ENGINEER Work Phone: [facility] 02-04-2024 19:20-0500 SaO2% (BldA) [Mass fraction] 94 % Pao Elias APRN.DESKTOP ENGINEER Work Phone: [facility] 02-04-2024 19:20-0500 Systolic blood pressure 178 mm[Hg] Pao Elias APRN.DESKTOP ENGINEER Work Phone: [facility] 01-25-2024 10:25-0500 Diastolic blood pressure 80 mm[Hg] Chelo Huitron TOP LIFT CUTTER - DESKTOP ENGINEER Work Phone: [facility] 01-25-2024 10:25-0500 Systolic blood pressure 148 mm[Hg] Chelo Huitron TOP LIFT CUTTER - DESKTOP ENGINEER Work Phone: [facility] 01-25-2024 10:05-0500 Body height 149.9 cm Chelo Huitron TOP LIFT CUTTER - DESKTOP ENGINEER Work Phone: [facility] 01-25-2024 10:05-0500 Body mass index (BMI) [Ratio] 51.58 kg/m2 Chelo Huitron TOP LIFT CUTTER - DESKTOP ENGINEER Work Phone: [facility] 01-25-2024 10:05-0500 Body weight 115.85 kg Chelo Huitron TOP LIFT CUTTER - DESKTOP ENGINEER Work Phone: [facility] 01-25-2024 10:05-0500 Heart rate 114 /min Chelo Agueroick TOP LIFT CUTTER - DESKTOP ENGINEER Work Phone: [facility] 01-25-2024 10:05-0500 SaO2% (BldA) [Mass fraction] 93 % Chleo Agueroick TOP LIFT CUTTER - DESKTOP ENGINEER Work Phone: [facility] 12-21-2023 10:01-0400 Body height 149.9 cm Kory Ibarra DO Work Phone: [facility] 12-21-2023 10:01-0400 Body mass index (BMI) [Ratio] 49.2 kg/m2 Kory Ibarra DO Work Phone: [facility] 12-21-2023 10:01-0400 Body temperature 97.5 [degF] Kory Ibarra DO Work Phone: [facility] 12-21-2023 10:01-0400 Body weight 110.5 kg Kory Ibarra DO Work Phone: [facility] 12-21-2023 10:01-0400 Diastolic blood pressure 87 mm[Hg] Kory Ibarra DO Work Phone: [facility] 12-21-2023 10:01-0400 Heart rate 93 /min Kory Ibarra DO Work Phone: [facility] 12-21-2023 10:01-0400 SaO2% (BldA) [Mass fraction] 97 % Kory Ibarra DO Work Phone: [facility] 12-21-2023 10:01-0400 Systolic blood pressure 137 mm[Hg] Kory Ibarra DO Work Phone: [facility] 08-11-2023 10:32-0400 Body height 149.9 cm Benita Moon MD Work Phone: [facility] 08-11-2023 10:32-0400 Body mass index (BMI) [Ratio] 50.09 kg/m2 Benita Moon MD Work Phone: [facility] 08-11-2023 10:32-0400 Body weight 112.49 kg Benita Moon MD Work Phone: [facility] 08-11-2023 10:32-0400 Diastolic blood pressure 60 mm[Hg] Benita Moon MD Work Phone: [facility] 08-11-2023 10:32-0400 Heart rate 72 /min Benita Moon MD Work Phone: [facility] 08-11-2023 10:32-0400 Respiratory rate 15 /min Benita Moon MD Work Phone: [facility] 08-11-2023 10:32-0400 Systolic blood pressure 136 mm[Hg] Benita Moon MD Work Phone: [facility] 03-25-2023 10:32-0500 Body height 149.9 cm Kory Ibarra DO Work Phone: [facility] 03-25-2023 10:32-0500 Body mass index (BMI) [Ratio] 49.89 kg/m2 Kory Ibarra DO Work Phone: [facility] 03-25-2023 10:32-0500 Body temperature 97.11 [degF] Kory Ibarra DO Work Phone: [facility] 03-25-2023 10:32-0500 Body weight 112.04 kg Kory Ibarra DO Work Phone: [facility] 03-25-2023 10:32-0500 Diastolic blood pressure 60 mm[Hg] Kory Ibarra DO Work Phone: [facility] 03-25-2023 10:32-0500 Heart rate 76 /min Kory Ibarra DO Work Phone: [facility] 03-25-2023 10:32-0500 SaO2% (BldA) [Mass fraction] 96 % Kory Ibarra DO Work Phone: [facility] 03-25-2023 10:32-0500 Systolic blood pressure 137 mm[Hg] Kory Ibarra DO Work Phone: [facility] 02-02-2023 11:31-0500 Diastolic blood pressure 78 mm[Hg] Chelo Muhammadynick TOP LIFT CUTTER - DESKTOP ENGINEER Work Phone: [facility] 02-02-2023 11:31-0500 Systolic blood pressure 148 mm[Hg] Chelo Muhammadynick TOP LIFT CUTTER - DESKTOP ENGINEER Work Phone: [facility] 02-02-2023 11:08-0500 Body height 149.9 cm Chelo Sabinaynick TOP LIFT CUTTER - DESKTOP ENGINEER Work Phone: [facility] 02-02-2023 11:08-0500 Body mass index (BMI) [Ratio] 49.28 kg/m2 Chelo Muhammadynick TOP LIFT CUTTER - DESKTOP ENGINEER Work Phone: [facility] 02-02-2023 11:08-0500 Body weight 110.68 kg Chelo Sabinaynick TOP LIFT CUTTER - DESKTOP ENGINEER Work Phone: [facility] 02-02-2023 11:08-0500 Heart rate 65 /min Chelo Huitron TOP LIFT CUTTER - DESKTOP ENGINEER Work Phone: [facility] 02-02-2023 11:08-0500 SaO2% (BldA) [Mass fraction] 94 % Chelo Huitron TOP LIFT CUTTER - DESKTOP ENGINEER Work Phone: [facility] 12-29-2022 09:20-0400 Body temperature 99.39 [degF] Alannah Praisler-Wood TOP LIFT CUTTER.DESKTOP ENGINEER Work Phone: [facility] 12-29-2022 09:20-0400 Body weight 114.22 kg Alannah Praisler-Wood TOP LIFT CUTTER.DESKTOP ENGINEER Work Phone: [facility] 12-29-2022 09:20-0400 Diastolic blood pressure 82 mm[Hg] Alannah Praisler-Wood TOP LIFT CUTTER.DESKTOP ENGINEER Work Phone: [facility] 12-29-2022 09:20-0400 Heart rate 105 /min Alannah Praisler-Wood TOP LIFT CUTTER.DESKTOP ENGINEER Work Phone: [facility] 12-29-2022 09:20-0400 Respiratory rate 22 /min Alannah Praisler-Wood TOP LIFT CUTTER.DESKTOP ENGINEER Work Phone: [facility] 12-29-2022 09:20-0400 SaO2% (BldA) [Mass fraction] 94 % Alannah Praisler-Wood TOP LIFT CUTTER.DESKTOP ENGINEER Work Phone: [facility] 12-29-2022 09:20-0400 Systolic blood pressure 150 mm[Hg] Alannah Praisler-Wood TOP LIFT CUTTER.DESKTOP ENGINEER Work Phone: [facility] 09-22-2022 10:22-0400 Body height 149.9 cm Kory Ibarra DO Work Phone: [facility] 09-22-2022 10:22-0400 Body mass index (BMI) [Ratio] 50.7 kg/m2 Kory Ibarra DO Work Phone: [facility] 09-22-2022 10:22-0400 Body temperature 96.91 [degF] Kory Ibarra DO Work Phone: [facility] 09-22-2022 10:22-0400 Body weight 113.85 kg Kory Ibarra DO Work Phone: [facility] 09-22-2022 10:22-0400 Diastolic blood pressure 71 mm[Hg] Kory Ibarra DO Work Phone: [facility] 09-22-2022 10:22-0400 Heart rate 75 /min Kory Ibarra DO Work Phone: [facility] 09-22-2022 10:22-0400 SaO2% (BldA) [Mass fraction] 94 % Kory Ibarra DO Work Phone: [facility] 09-22-2022 10:22-0400 Systolic blood pressure 139 mm[Hg] Kory Ibarra DO Work Phone: [facility] 03-24-2022 11:16-0500 Diastolic blood pressure 68 mm[Hg] Kory Ibarra DO Work Phone: [facility] 03-24-2022 11:16-0500 Heart rate 72 /min Kory Ibarra DO Work Phone: [facility] 03-24-2022 11:16-0500 Systolic blood pressure 134 mm[Hg] Kory Ibarra DO Work Phone: [facility] 03-24-2022 10:39-0500 Body height 149.9 cm Kory Ibarra DO Work Phone: [facility] 03-24-2022 10:39-0500 Body mass index (BMI) [Ratio] 52.23 kg/m2 Kory Jimeneza DO Work Phone: [facility] 03-24-2022 10:39-0500 Body temperature 97 [degF] Kory Ibarra DO Work Phone: [facility] 03-24-2022 10:39-0500 Body weight 117.3 kg Kory Ibarra DO Work Phone: [facility] 03-24-2022 10:39-0500 SaO2% (BldA) [Mass fraction] 95 % Kory Ibarra DO Work Phone: [facility] 01-22-2022 15:01-0500 Heart rate 98 /min Dr. Kory Ibarra Work Phone: [facility] Work Phone: 01-22-2022 15:01-0500 Respiratory rate 20 /min Dr. Kory Ibarra Work Phone: [facility] Work Phone: 01-22-2022 13:55-0500 Inhaled oxygen flow rate 2 L/min Dr. Kory Ibarra Work Phone: [facility] Work Phone: 01-22-2022 13:55-0500 SaO2% (BldA) [Mass fraction] 96 % Dr. Kory Ibarra Work Phone: [facility] Work Phone: 01-22-2022 13:16-0500 Body temperature 98.2 [degF] Dr. Kory Ibarra Work Phone: [facility] Work Phone: 01-22-2022 13:16-0500 Diastolic blood pressure 63 mm[Hg] Dr. Kory Ibarra Work Phone: [facility] Work Phone: 01-22-2022 13:16-0500 Systolic blood pressure 123 mm[Hg] Dr. Kory Ibarra Work Phone: [facility] Work Phone: 01-22-2022 06:00-0500 Body weight 116.[address] Kory Ibarra Work Phone: [facility] Work Phone: 01-19-2022 11:09-0500 Body height 149.[address] Kory Ibarra Work Phone: [facility] Work Phone: 01-19-2022 00:06-0500 Body mass index (BMI) [Ratio] 51.2 kg/m2 Dr. Kory Ibarra Work Phone: [facility] Work Phone: 01-18-2022 23:31-0500 Body temperature 97.9 [degF] [facility] Work Phone: 01-18-2022 23:31-0500 Diastolic blood pressure 64 mm[Hg] [facility] Work Phone: 01-18-2022 23:31-0500 Heart rate 114 /min [facility] Work Phone: 01-18-2022 23:31-0500 Inhaled oxygen flow rate 2 L/min [facility] Work Phone: 01-18-2022 23:31-0500 Respiratory rate 22 /min [facility] Work Phone: 01-18-2022 23:31-0500 SaO2% (BldA) [Mass fraction] 96 % [facility] Work Phone: 01-18-2022 23:31-0500 Systolic blood pressure 139 mm[Hg] [facility] Work Phone: 01-18-2022 21:17-0500 Body height 149.86 cm [facility] Work Phone: 01-18-2022 21:17-0500 Body mass index (BMI) [Ratio] 52.4 kg/m2 [facility] Work Phone: 01-18-2022 21:17-0500 Body weight 117.93 kg [facility] Work Phone: Encounters Encounter Date Encounter Type Care Provider Facility Start: 08-23-2024 End: 08-24-2024 Telephone encounter Kory [facility]barra DO [facility] Comment on above: Durable Medical Equi pment Start: 08-21-2024 End: 08-22-2024 Orders Only Kory Ibarra DO Work Phone: [facility] Start: 08-20-2024 End: 08-20-2024 Orders Only Kory Ibarra DO Work Phone: [facility] Comment on above: Iron deficiency anem ia, unspecified iron deficiency anemia type (Primary Dx); Thrombocytopenia (HCC) Start: 08-15-2024 End: 08-15-2024 ambulatory [facility] Start: 08-09-2024 End: 08-09-2024 Subsequent hospital visit by physician Tony [facility] María Elena Work Phone: Radiology Comment on above: Right elbow pain [M2 5.521] Start: 08-09-2024 End: 08-09-2024 ambulatory KORY IWLY IBARRA Facility:[facility] Start: 08-09-2024 End: 08-09-2024 Patient encounter procedure Miranda Marion APRN.CNP Work Phone: [facility] Comment on above: Skin erythema (Prima ry Dx); Right elbow pain Start: 08-05-2024 End: 08-05-2024 ambulatory [facility] Start: 08-02-2024 End: 08-14-2024 Refill Kory Ibarra DO Work Phone: [facility] Start: 08-01-2024 End: 08-01-2024 Telephone encounter Kory Ibarra DO Work Phone: [facility] Comment on above: Referral Start: 07-31-2024 End: 07-31-2024 ambulatory [facility] Start: 07-31-2024 End: 07-31-2024 Office outpatient visit 40 minutes Benita Moon MD Work Phone: [facility] Comment on above: Pulmonary HTN (HCC) (Primary Dx); Essential hypertension Start: 07-17-2024 End: 07-17-2024 Refill Kory [facility]barra DO [facility] Start: 07-03-2024 End: 07-03-2024 Telephone encounter Kory Ibarra DO [facility] Comment on above: Referral (Dr Yu) Start: 07-02-2024 End: 07-02-2024 Orders Only Kory Ibarra DO [facility] Start: 06-30-2024 End: 06-30-2024 ambulatory [facility] Start: 06-23-2024 End: 06-23-2024 Orders Only Kory Ibarra DO Work Phone: [facility] Comment on above: Abnormal protein erasmo ctrophoresis (Primary Dx) Results (06.21.2024) Start: 06-21-2024 End: 06-21-2024 ambulatory [facility] Start: 06-19-2024 End: 06-19-2024 [facility]ulatory [facility] Network Start: 06-19-2024 End: 06-19-2024 Office outpatient visit 25 minutes Kory [facility]barra DO [facility] Comment on above: Heart failure with i mproved ejection fraction (HFimpEF) ([facility]) (Primary Dx); Normochromic normocytic anemia; Morbidly obese ([facility]); Chronic obstructive pulmonary disease, unspecified COPD type ([facility]); Longstanding persistent atrial fibrillation ([facility]); Depression, unspecified depression type Start: 06-05-2024 Non-patient / Non-visit Dr. John Paul Olsen [facility] Work Phone: Start: 06-04-2024 Non-patient / Non-visit Dr. Shy Knox [facility] Work Phone: Start: 06-03-2024 Non-patient / Non-visit Dr. Shy Knox [facility] Work Phone: Start: 06-03-2024 ambulatory Kory Ibarra Facilit y:[facility] Start: 06-03-2024 Non-patient / Non-visit Dr. Dean Of valarie [facility] Start: 06-02-2024 ambulatory Wilbert Tavarez ility:[facility] Start: 06-02-2024 End: 06-05-2024 Evaluation and management of inpatient Dr. Wilbert Umanzor DO -[facility] Work Phone: Start: 05-31-2024 End: 05-31-2024 ambulatory KORY IBARRA [facility] Start: 05-31-2024 End: 05-31-2024 Office outpatient visit 25 minutes Chelo Hiutron APRN - DESKTOP ENGINEER Work Phone: [facility] - [place] Comment on above: Permanent atrial fib rillation (HCC) (Primary Dx); Anticoagulant long-term use; Pulmonary HTN (HCC); Nonrheumatic tricuspid valve regurgitation; 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); Nonrheumatic aortic valve insufficiency; Nonrheumatic mitral valve regurgitation; CHRISTIANNE on CPAP; Hospital discharge follow-up Start: 05-25-2024 End: 05-25-2024 Patient encounter procedure Scott Alejandra PA [facility] Work Phone: Start: 05-25-2024 End: 05-25-2024 ambulatory Davis Irene Facility:[facility] Start: 04-29-2024 End: 05-02-2024 Telephone encounter Niecy Sierra MD Work Phone: [facility] - [place] Start: 04-27-2024 End: 05-08-2024 Evaluation and management of inpatient Oswaldo Carpenter DO Work Phone: [facility] Medical Intensive Care Unit MICU T3 Start: 04-27-2024 End: 07-27-2024 Transcribe Orders Kory Ibarra DO Work Phone: [facility] Comment on above: Disorder of adrenal gland, unspecified (HCC) (Primary Dx) Start: 04-27-2024 End: 04-27-2024 Office outpatient visit 40 minutes Benita Moon MD Work Phone: [facility] [place] Comment on above: Permanent atrial fib rillation (HCC) Start: 04-23-2024 End: 04-23-2024 Orders Only Kory Ibarra DO Work Phone: [facility] [place] Comment on above: Venous insufficiency (Primary Dx) Start: 04-18-2024 End: 07-18-2024 Transcribe Orders Kory Ibarra Work Phone: [facility] Comment on above: Disorder of adrenal gland, unspecified (HCC) (Primary Dx); Permanent atrial fibrillation (HCC) Start: 04-13-2024 End: 04-14-2024 Telephone encounter Benita Moon MD Work Phone: [facility] [place] [facility] [place] Comment on above: Other (Eliquis) Start: 04-05-2024 End: 04-14-2024 Orders Only Kory Ibarra Work Phone: [facility] [place] Comment on above: Permanent atrial fib rillation (HCC) (Primary Dx) Cancelled Appointmen t Start: 04-04-2024 End: 04-04-2024 Telephone encounter Kory Ibarra Work Phone: [facility] Comment on above: Advice Only Start: 04-03-2024 End: 04-03-2024 ambulatory [facility] Start: 04-03-2024 End: 04-03-2024 Office outpatient visit 40 minutes Kory Ibarra DO Work Phone: [facility] Comment on above: Osteoporotic brenda tanya fracture of vertebra with routine healing, subsequent encounter (Primary Dx); Venous insufficiency; Anticoagulant long-term use; Permanent atrial fibrillation (HCC); Nausea; Encounter for therapeutic drug level monitoring; Lesion of adrenal gland (HCC); Hyperglycemia; Hypercholesteremia; Recurrent major depressive disorder, in remission (HCC); Essential hypertension; Chronic obstructive pulmonary disease, unspecified COPD type (HCC) Start: 03-13-2024 End: 03-14-2024 Telephone encounter Kory Ibarra DO Work Phone: [facility] - [place] Comment on above: Appointment ( 4 Pt Daughter calling to ask the office /Provider if her Mother could have a SOONER appt than .. with Provider since being out of the Hospital she is asking for a call back to discuss) Start: 02-16-2024 End: 02-17-2024 Telephone encounter Brooklyn Baldwin TOP LIFT CUTTER - DESKTOP ENGINEER Work Phone: [facility] [place] Start: 02-15-2024 End: 02-16-2024 Telephone encounter Jamie Jimenez MD Work Phone: [facility] - [place] Comment on above: Other (Hospital foll ow up , adrenal mass and microhematuria) Start: 02-14-2024 End: 02-22-2024 Evaluation and management of inpatient Brina Rocha DO Work Phone: [facility] Cardiac Progressive Care Unit PCU 2E Comment on above: Atypical back pain ( Primary Dx); Abdominal pain, unspecified abdominal location; Acute midline low back pain without sciatica; Pulmonary HTN (HCC); Acute respiratory failure, unspecified whether with hypoxia or hypercapnia (HCC); Morbidly obese (HCC) Start: 02-14-2024 End: 02-14-2024 Subsequent hospital visit by physician Curt Last PA-C Work Phone: [facility] CT Comment on above: Acute midline low ba ck pain without sciatica; Bandemia Shortness of breath Start: 02-14-2024 End: 02-14-2024 ambulatory KORY [facility] Start: 02-14-2024 End: 02-14-2024 ambulatory KORY [facility] Start: 02-14-2024 End: 02-14-2024 Office outpatient visit 40 minutes Curt Last PA-C Work Phone: [facility] [place] Comment on above: Acute midline low ba ck pain without sciatica (Primary Dx); Tinea cruris; Shortness of breath; Bandemia Start: 02-11-2024 End: 02-11-2024 Subsequent hospital visit by physician [facility] Exam Room [address] [facility] Comment on above: Arrived Start: 02-11-2024 End: 02-11-2024 Emergency department patient visit Elias Dawn DO Work Phone: [facility] ED Comment on above: Acute right-sided lo w back pain without sciatica (Primary Dx); Calculus of gallbladder without cholecystitis without obstruction; Left adrenal mass (HCC); Chronic congestive heart failure, unspecified heart failure type (HCC) Start: 02-09-2024 End: 02-09-2024 Orders Only Kory Chayito Fred DO Work Phone: [facility] Start: 02-04-2024 End: 02-04-2024 Subsequent hospital visit by physician [facility] Xr Portable [facility] Radiology Comment on above: Arrived Start: 02-04-2024 End: 02-04-2024 Emergency department patient visit Kellie Doherty Candido DO Work Phone: [facility] ED Comment on above: Acute right-sided lo w back pain without sciatica (Primary Dx) Start: 02-04-2024 End: 02-04-2024 ambulatory KORY IBARRA Facility:[facility] Start: 02-04-2024 End: 02-04-2024 Patient encounter procedure Pao Elias APRN.CNP Work Phone: [facility] Comment on above: Pain (Primary Dx) Start: 01-31-2024 End: 02-04-2024 ambulatory [facility] Start: 01-31-2024 End: 02-04-2024 Patient encounter procedure [facility] Start: 01-25-2024 End: 01-25-2024 Office outpatient visit 25 minutes Chelo Huitron APRN - DESKTOP ENGINEER Work Phone: [facility] Comment on above: Permanent atrial fib rillation (HCC) (Primary Dx); Anticoagulant long-term use; Encounter for long-term (current) use of high-risk medication; Pulmonary HTN (HCC); Chronic systolic (congestive) heart failure (HCC); Essential hypertension Start: 01-25-2024 End: 01-25-2024 ambulatory [facility] Start: 12-21-2023 End: 12-21-2023 Telephone encounter Kory Ibarra Work Phone: [facility] [place] Comment on above: Referral ([facility]-INVESTIGATION DIVISION CAPTAIN) Start: 12-21-2023 End: 12-21-2023 Office outpatient visit 25 minutes Kory Ibarra Work Phone: [facility] [place] Comment on above: Postmenopausal vagin al bleeding (Primary Dx); CHRISTIANNE on CPAP; History of pneumonia; Pulmonary emphysema, unspecified emphysema type (HCC); History of COVID-19; Anticoagulant long-term use; Permanent atrial fibrillation (HCC); Thrombocytopenia (HCC); Nasal bleeding Start: 12-21-2023 End: 12-21-2023 ambulatory [facility] Start: 12-16-2023 End: 12-16-2023 Subsequent hospital visit by physician Kory Ibarra Work Phone: [facility] Radiology Comment on above: Leukocytosis, unspec ified type Start: 12-16-2023 End: 12-16-2023 ambulatory [facility] Start: 12-15-2023 End: 12-15-2023 Orders Only Kory Ibarra Work Phone: [facility] Comment on above: Leukocytosis, unspec ified type (Primary Dx) Start: 12-14-2023 End: 12-14-2023 ambulatory [facility] Start: 12-13-2023 End: 12-13-2023 Emergency department patient visit [facility] Start: 12-13-2023 End: 04-22-2024 ambulatory Chinyere Link RN [facility] Clinical Communication Start: 12-13-2023 End: 04-22-2024 Patient encounter procedure [facility] Start: 12-13-2023 End: 12-13-2023 Telephone encounter Benita Moon MD Work Phone: [facility] Comment on above: Appointment Request (LEROY) Start: 12-01-2023 End: 12-09-2023 Patient encounter procedure Zaynab Caraballo RN [facility] Clinical Communication Start: 12-01-2023 End: 12-09-2023 ambulatory Zaynab Caraballo RN [facility] Clinical Communication Start: 12-01-2023 End: 12-03-2023 Evaluation and management of inpatient Davis Sheets Facility:[facility] Start: 11-24-2023 End: 11-25-2023 Refill Kory F Petrilla DO Work Phone: [facility] Comment on above: CHRISTIANNE on CPAP; RSV (respiratory syncytial virus infection) Start: 11-17-2023 End: 11-17-2023 Refill Kory F Petrilla DO Work Phone: [facility] Start: 11-16-2023 End: 11-17-2023 Telephone encounter Kory F Neftalylla DO Work Phone: [facility] Comment on above: Labs Only Start: 11-14-2023 End: 11-16-2023 Refill Kory F Petrilla DO Work Phone: [facility] Start: 10-06-2023 End: 10-07-2023 Refill Kory F Petrilla DO Work Phone: [facility] Start: 10-04-2023 End: 10-04-2023 Telephone encounter Benita Moon MD Work Phone: [facility] Comment on above: Other (antibiotic) Start: 09-06-2023 End: 09-07-2023 Refill Kory F Petrilla DO Work Phone: [facility] Start: 08-19-2023 Refill Kory F Neftaly lla DO Work Phone: [facility] Start: 08-11-2023 End: 08-11-2023 Office outpatient visit 40 minutes Benita Moon MD Work Phone: [facility] Comment on above: Palpitations Start: 08-02-2023 End: 08-02-2023 Subsequent hospital visit by physician Kory Ibarra DO Work Phone: [facility] Comment on above: Breast cancer screen ing by mammogram Start: 05-28-2023 ambulatory Delaney Arceo RN [facility] [place] Comment on above: ACAnai BERRY RN ( Medication Adherence review per request of payer) Start: 05-26-2023 Refill Kerri Morse MA [facility] Start: 05-11-2023 Refill Kory Stratton Neftaly pearce DO Work Phone: [facility] Start: 05-07-2023 Orders Only Kory Stratton Neftaly pearce DO Work Phone: [facility] Start: 04-13-2023 Telephone encounter Jimbo Khalil MD Work Phone: [facility] Comment on above: Appointment Start: 04-09-2023 Refill Kory Higginbotham portia DO Work Phone: [facility] Comment on above: CHRISTIANNE on CPAP; RSV (respiratory syncytial virus infection) Start: 03-25-2023 Telephone encounter Kory burton DO Work Phone: [facility] Comment on above: Orders (Plastic Surg thong referral) Start: 03-25-2023 End: 03-25-2023 Office outpatient visit 25 minutes Kory Ibarra DO Work Phone: [facility] Comment on above: Essential hypertensi on (Primary Dx); Hypercholesteremia; Anticoagulant long-term use; Major depressive disorder, recurrent, mild (HCC); Permanent atrial fibrillation (HCC); Eyelid lesion, benign; Cough variant asthma; Breast cancer screening by mammogram Start: 03-17-2023 Refill Chelo quintero APRN - DESKTOP ENGINEER Work Phone: [facility] Start: 03-16-2023 Refill Chelo quintero TOP LIFT CUTTER - DESKTOP ENGINEER Work Phone: [facility] Start: 03-06-2023 Refill Kory pearce DO Work Phone: [facility] Comment on above: CHRISTIANNE on CPAP; RSV (respiratory syncytial virus infection) Start: 03-03-2023 Orders Only Kory pearce DO Work Phone: [facility] Start: 02-02-2023 End: 02-02-2023 Office outpatient visit 25 minutes Chelo Huitron APRN - DESKTOP ENGINEER Work Phone: [facility] Comment on above: Permanent atrial fib rillation (HCC) (Primary Dx); Anticoagulant long-term use; Encounter for long-term (current) use of high-risk medication; Pulmonary HTN (HCC); CHRISTIANNE on CPAP; 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) Start: 12-29-2022 End: 12-29-2022 Patient encounter procedure Alannah Reed APRN.DESKTOP ENGINEER Work Phone: [facility] Comment on above: Bacterial sinusitis (Primary Dx) Start: 11-24-2022 Refill Benita Garcia Work Phone: [facility] Start: 09-22-2022 End: 09-22-2022 Assay of hemosiderin, quant Kory Stratton Fred DO Work Phone: [facility] Start: 09-22-2022 End: 09-22-2022 Patient encounter procedure Kory Stratton Tonybessy DO Work Phone: [facility] Comment on above: Encounter for subseq uent annual wellness visit (AWV) in Medicare patient (Primary Dx); Essential hypertension; Cough variant asthma; Longstanding persistent atrial fibrillation (CMS/HCC) (HCC); Hypercholesteremia; Mitral valve insufficiency, unspecified etiology; History of pulmonary embolism; Anticoagulant long-term use; Breast cancer screening by mammogram; Pulmonary emphysema, unspecified emphysema type (HCC); Major depressive disorder, recurrent, mild (HCC); Morbidly obese (HCC); Routine general medical examination at health care facility Start: 09-08-2022 Refill Kory pearce DO Work Phone: [facility] Comment on above: CHRISTIANNE on CPAP; RSV (respiratory syncytial virus infection) Start: 07-22-2022 End: 07-22-2022 ambulatory Benita Moon MD Work Phone: [facility] Laboratory Comment on above: Arrived Longstanding persist ent atrial fibrillation (CMS/HCC) (HCC) (Primary Dx) Start: 06-16-2022 Refill Kory pearce DO Work Phone: [facility] Comment on above: CHRISTIANNE on CPAP; Cough variant asthma; RSV (respiratory syncytial virus infection) Start: 05-25-2022 Refill Chelo quintero APRN Leann DESKTOP ENGINEER Work Phone: [facility] Start: 05-05-2022 Orders Only Kory pearce DO Work Phone: [facility] Start: 03-24-2022 End: 03-24-2022 Office outpatient visit 25 minutes Kory Ibarra DO Work Phone: [facility] Comment on above: Chronic pain of left knee (Primary Dx); CHRISTIANNE on CPAP; Cough variant asthma; Hyperglycemia; Essential hypertension; Longstanding persistent atrial fibrillation (CMS/HCC) (HCC); Hypercholesteremia Start: 01-22-2022 Non-patient / Non-visit Dr. Wesly Ibarra Work Phone: [facility] Inpatient Physicians Start: 01-21-2022 Non-patient / Non-visit Dr. Wesly Ibarra Work Phone: [facility] Inpatient Physicians Start: 01-20-2022 Non-patient / Non-visit Dr. Wesly Ibarra Work Phone: [facility] Inpatient Physicians Start: 01-19-2022 Non-patient / Non-visit Dr. Wesly Ibarra Work Phone: [facility] Inpatient Physicians Start: 01-18-2022 Non-patient / Non-visit Dr. Wesly Ibarra Work Phone: [facility] Phys[facility] Start: 01-18-2022 End: 01-22-2022 Evaluation and management of inpatient [facility]-Progressive Care Unit Start: 12-01-2021 ambulatory Kory [facility] Start: 12-01-2021 End: 12-01-2021 Subsequent hospital visit by physician Benita Moon MD Work Phone: [facility] Laboratory Comment on above: Permanent atrial fib rillation (HCC) Start: 11-07-2021 ambulatory Kory [facility] Start: 10-13-2021 End: 10-13-2021 Subsequent hospital visit by physician Benita Moon MD Work Phone: [address] [place] Comment on above: Chronic atrial fibri llation, unspecified (HCC); Nonrheumatic mitral (valve) insufficiency; Chronic atrial fibrillation (HCC); Nonrheumatic mitral valve regurgitation Start: 09-29-2021 ambulatory [facility] Start: 09-29-2021 End: 09-29-2021 Subsequent hospital visit by physician Gene Maldonado MD Work Phone: [facility] Laboratory Comment on above: Anticoagulant long-t erm use; Chronic atrial fibrillation (HCC) Chronic atrial fibri llation (HCC) Start: 07-24-2021 End: 07-24-2021 Subsequent hospital visit by physician Laura Yang APRN - DESKTOP ENGINEER Work Phone: [facility] MAM[facility] Comment on above: Mass of upper outer quadrant of right breast Start: 07-02-2021 ambulatory Kory Joel [facility] Start: 07-02-2021 End: 07-02-2021 Subsequent hospital visit by physician Kory Ibarra DO Work Phone: [facility] Mammography Comment on above: Hx of abnormal mammo gram; Other signs and symptoms in breast Start: 04-30-2021 ambulatory Chelo [employer] [facility] Start: 01-20-2021 ambulatory Kory Ibarra [facility] ealt System Start: 12-30-2020 ambulatory UNKNOWN PROVIDER [facility] Start: 12-30-2020 End: 12-30-2020 Subsequent hospital visit by physician Ino Ly MD Work Phone: [facility] Comment on above: Chronic atrial fibri llation (HCC) Hypercholesteremia; Essential hypertension Start: 12-17-2020 ambulatory UNKNOWN PROVIDER [facility] Start: 12-17-2020 End: 12-17-2020 Subsequent hospital visit by physician Ino Ly MD Work Phone: [facility] Comment on above: Chronic atrial fibri llation (HCC) Start: 10-03-2020 End: 10-03-2020 Subsequent hospital visit by physician Ino Ly MD Work Phone: [facility] Comment on above: Chronic atrial fibri llation (HCC) Start: 09-24-2020 End: 09-24-2020 Subsequent hospital visit by physician Ino Ly MD Work Phone: [facility] Comment on above: Chronic atrial fibri llation (HCC) Start: 08-16-2020 End: 08-16-2020 Subsequent hospital visit by physician Ino Ly MD Work Phone: [facility] Comment on above: Chronic atrial fibri llation (HCC) Start: 05-23-2020 End: 05-23-2020 Subsequent hospital visit by physician Ino Ly Work Phone: [facility] Comment on above: Chronic atrial fibri llation (HCC) Start: 05-15-2020 End: 05-15-2020 Subsequent hospital visit by physician Ino Ly Work Phone: [facility] Comment on above: Chronic atrial fibri llation (HCC) Start: 04-29-2020 End: 04-29-2020 Subsequent hospital visit by physician Ino Ly Work Phone: [facility] Comment on above: Chronic atrial fibri llation (HCC) Start: 04-11-2020 End: 04-11-2020 Subsequent hospital visit by physician Ino Ly Work Phone: [facility] Comment on above: Chronic atrial fibri llation (HCC) Start: 04-02-2020 End: 04-02-2020 Subsequent hospital visit by physician Ino Ly Work Phone: [facility] Comment on above: Chronic atrial fibri llation (HCC) Start: 03-28-2020 End: 03-28-2020 Subsequent hospital visit by physician Ino Ly Work Phone: [facility] Comment on above: Chronic atrial fibri llation (HCC) Start: 03-18-2020 End: 03-18-2020 Subsequent hospital visit by physician Ino Ly Work Phone: [facility] Comment on above: Chronic atrial fibri llation (HCC) Start: 03-12-2020 End: 03-12-2020 Subsequent hospital visit by physician Ino Ly Work Phone: [facility] Comment on above: Chronic atrial fibri llation (HCC) Start: 02-20-2020 End: 02-20-2020 Subsequent hospital visit by physician Ino Ly Work Phone: [facility] Comment on above: Chronic atrial fibri llation (HCC) Start: 02-01-2020 End: 02-01-2020 Subsequent hospital visit by physician Ino Ly Work Phone: [facility] Comment on above: Chronic atrial fibri llation (HCC) Start: 01-25-2020 End: 01-25-2020 Subsequent hospital visit by physician Ino Ly Work Phone: [facility] Start: 11-27-2019 End: 11-27-2019 Subsequent hospital visit by physician Kory Ibarra Work Phone: [facility] Comment on above: Arrived Start: 09-21-2019 End: 09-21-2019 Subsequent hospital visit by physician Kory Ibarra Work Phone: [facility] Comment on above: Atrial fibrillation, unspecified type (HCC) Start: 07-04-2019 End: 07-04-2019 Subsequent hospital visit by physician Ino Ly Work Phone: [facility] Comment on above: Atrial fibrillation, unspecified type (HCC) Start: 05-19-2019 End: 05-19-2019 Subsequent hospital visit by physician Ino Ly Work Phone: [facility] Comment on above: Anticoagulant long-t erm use; Hypercholesteremia; Essential hypertension Start: 04-25-2019 End: 04-25-2019 Subsequent hospital visit by physician Ino Ly Work Phone: [facility] Comment on above: Atrial fibrillation, unspecified type (HCC) Start: 03-20-2019 End: 03-20-2019 Subsequent hospital visit by physician Ino Ly MD Work Phone: [facility] Comment on above: Atrial fibrillation, unspecified type (HCC) Start: 02-06-2019 End: 02-06-2019 Subsequent hospital visit by physician Ino Ly Work Phone: [facility] Comment on above: Atrial fibrillation, unspecified type (HCC) Start: 02-03-2019 End: 02-03-2019 Subsequent hospital visit by physician Ino Ly Work Phone: [facility] Comment on above: Atrial fibrillation, unspecified type (HCC) Start: 01-06-2019 End: 01-06-2019 Subsequent hospital visit by physician Ino Ly Work Phone: [facility] Comment on above: Atrial fibrillation, unspecified type (HCC) Start: 11-23-2018 End: 11-23-2018 Subsequent hospital visit by physician Kory Ibarra Work Phone: [facility] Comment on above: Breast cancer screen ing Start: 10-25-2018 End: 10-25-2018 Subsequent hospital visit by physician Ino Ly Work Phone: [facility] Comment on above: Chronic atrial fibri llation (HCC) Start: 06-08-2017 Ambulatory Bethel Joel [facility] Procedures Date Procedure Procedure Detail Performing Clinician Start: 08-15-2024 Follow-up visit KORY IBARRA Start: 08-09-2024 Radex elbow 2 views Satya Marion TOP LIFT CUTTER.DESKTOP ENGINEER Work Phone: Start: 07-31-2024 Ecg routine ecg w/le ast 12 lds w/i&r Benita Moon MD Work Phone: Start: 07-31-2024 Follow-up visit KORY IBARRA Start: 06-19-2024 Follow-up visit KORY IBARRA Start: 06-02-[address] Davis Irene DO Work Phone: Start: 06-02-2024 SARS-CoV-2, Influenz a & RSV (PCR) Dr. Davis Irene DO Work Phone: Start: 06-02-2024 Plain chest X-ray Dr. aGbby Irene DO Work Phone: Start: 05-31-2024 Follow-up visit KORY IBARRA Start: 05-08-2024 HOME O2 EVAL (DESATU RATION SCREEN) Betsey Blount DO Work Phone: Start: 05-08-2024 Echo tthrc r-t 2d w/ wom-mode compl spec&colr d Elias Ruth MD Work Phone: Start: 05-08-2024 Basic metabolic pane l calcium total Silvino Zabala MD Work Phone: Start: 05-07-2024 Blood count complete auto&auto difrntl wbc Brayan Wellington MD Work Phone: Start: 05-07-2024 Basic metabolic pane l calcium total Silvino Zabala MD Work Phone: Start: 05-06-2024 Basic metabolic pane l calcium total Silvino Zabala MD Work Phone: Start: 05-05-2024 Calcium ionized Silvino Zabala MD Work Phone: Start: 05-05-2024 Basic metabolic pane l calcium total Silvino Zabala MD Work Phone: Start: 05-04-2024 Smr prim src gram/gi emsa stain bct fungi/cell Brayden Cuevas MD Work Phone: Start: 05-04-2024 Procalcitonin (pct) Bhavya Nicholas MD Work Phone: Start: 05-04-2024 Respiratory pathogen s DNA and RNA panel - Lower respiratory specimen by STEPHANIE with non-probe detection Brayden Cuevas MD Work Phone: Start: 05-04-2024 Blood gases any comb ination ph pco2 po2 co2 hco3 Silvino Zabala MD Work Phone: Start: 05-04-2024 Radiologic exam ches t single view Slivino Zabala MD Work Phone: Start: 05-04-2024 Calcium ionized Silvino Zabala MD Work Phone: Start: 05-04-2024 End: 05-04-2024 Basic metabolic panel calcium total Brayden Cuevas MD Work Phone: Start: 05-04-2024 Blood gases any comb ination ph pco2 po2 co2 hco3 Alin José MD Work Phone: Start: 05-04-2024 Iaad ia hiv-1 ag w/h iv-1 & hiv-2 antbdy single Silvino Zabala MD Work Phone: Start: 05-03-2024 ETHYL GLUCURONIDE SC REEN, URINE Silvino Zabala MD Work Phone: Start: 05-03-2024 Basic metabolic pane l calcium total Alin José MD Work Phone: Start: 05-03-2024 Hepatitis c antibody Hu carlito Zabala MD Work Phone: Start: 05-03-2024 Blood gases any comb ination ph pco2 po2 co2 hco3 Silvino Zabala MD Work Phone: Start: 05-03-2024 Iadna s aureus methi cillin resist amp probe tq Silvino Zabala MD Work Phone: Start: 05-03-2024 Blood gases any comb ination ph pco2 po2 co2 hco3 Brayden Cuevas MD Work Phone: Start: 05-03-2024 Basic metabolic pane l calcium total Kwan Aviles DO Work Phone: Start: 05-02-2024 Blood gases any comb ination ph pco2 po2 co2 hco3 Brayden Cuevas MD Work Phone: Start: 05-02-2024 Fibrin dgradj produc ts d-dimer quantitative Brayden Cuevas MD Work Phone: Start: 05-02-2024 Blood gases any comb ination ph pco2 po2 co2 hco3 Jose Luis Saravia MD Work Phone: Start: 05-02-2024 Radiologic exam ches t single view Jose Luis Saravia MD Work Phone: Start: 05-02-2024 Fibrinogen activity Chico lloyd Saravia MD Work Phone: Start: 05-02-2024 HC SARSCOV2&INF A&B& RSV AMP PRB Jose Luis Saravia MD Work Phone: Start: 05-02-2024 Respiratory pathogen s DNA and RNA panel - Nasopharynx by STEPHANIE with non-probe detection Silvino Zabala MD Work Phone: Start: 05-02-2024 Basic metabolic pane l calcium total Kwan Aviles DO Work Phone: Start: 05-01-2024 Comprehensive metabo lic panel Kwan Aviles DO Work Phone: Start: 04-30-2024 Ecg routine ecg w/le ast 12 lds trcg only w/o i&r Ana Martinez MD Work Phone: Start: 04-30-2024 Basic metabolic pane l calcium total Kwan Aviles DO Work Phone: Start: 04-30-2024 Ecg routine ecg w/le ast 12 lds trcg only w/o i&r Ana Martinez MD Work Phone: Start: 04-29-2024 Basic metabolic pane l calcium total Kwan Aviles DO Work Phone: Start: 04-28-2024 Iadna-dna/rna gi pth gn multiplex probe tq 12-25 Kwan Aviles DO Work Phone: Start: 04-28-2024 Inf agent det nuclei c acid clostridium amp probe Kwan Aviles DO Work Phone: Start: 04-28-2024 Assay of thyroid sti mulating hormone tsh Kwan Aviles DO Work Phone: Start: 04-28-2024 Us retroperitoneal r eal time w/image complete Terri Henao PA-C Work Phone: Start: 04-28-2024 Culture bacterial quanttative colony count urine Kwan Aviles DO Work Phone: Start: 04-28-2024 URINE HOLD CUP Kwan Aviles DO Work Phone: Start: 04-28-2024 Creatinine other source Kwan Aviles DO Work Phone: Start: 04-28-2024 Iaadiadoo not otherw ise specified Silvino Zabala MD Work Phone: Start: 04-28-2024 LEGIONELLA AND STREP TOCOCCUS URINE ANTIGEN, ORDERABLE Silvino Zabala MD Work Phone: Start: 04-28-2024 URINE HOLD CUP Silvino Zabala MD Work Phone: Start: 04-28-2024 Basic metabolic pane l calcium total Yanelis Raya POLANCO Work Phone: Start: 04-28-2024 Urinalysis complete panel - Urine Joaquin Harris PA-C Work Phone: Start: 04-28-2024 Urnls dip stick/tabl et reagent auto microscopy Joaquin Harris PA-C Work Phone: Start: 04-28-2024 Assay of troponin quantitative Joaquin Harris PA-C Work Phone: Start: 04-27-2024 Ct abdomen & pelvis w/o contrast material Oswaldo R Carpenter DO Work Phone: Start: 04-27-2024 Assay of troponin quantitative Joaquin Harris PA-C Work Phone: Start: 04-27-2024 Radiologic exam ches t single view Oswaldo R Carpenter DO Work Phone: Start: 04-27-2024 Basic metabolic pane l calcium total Joaquin MURRY-Dewayne Work Phone: Start: 04-27-2024 Drug screen quantita tive digoxin total Joaquin Harris PA-C Work Phone: Start: 04-27-2024 Manual Differential panel - Blood Joaquin Harris PA-C Work Phone: Start: 04-27-2024 Ecg routine ecg w/le ast 12 lds trcg only w/o i&r Joaquin Harris PA-C Work Phone: Start: 04-27-2024 Ecg routine ecg w/le ast 12 lds w/i&r Benita Moon MD Work Phone: Start: 04-27-2024 Follow-up visit KORY IBARRA Start: 04-03-2024 Follow-up visit KORY IBARRA Start: 02-22-2024 Comprehensive metabo lic panel Nathan Gracia MD Work Phone: Start: 02-22-2024 Drug screen quantita tive digoxin total Jose Metcalf MD Work Phone: Start: 02-21-2024 Comprehensive metabo lic panel Nathan Gracia MD Work Phone: Start: 02-20-2024 Comprehensive metabo lic panel Nathan Gracia MD Work Phone: Start: 02-17-2024 Echo tthrc r-t 2d w/ wom-mode compl spec&colr d Nathan Gracia MD Work Phone: Start: 02-17-2024 End: 02-18-2024 Comprehensive metabolic panel Ana Martinez MD Work Phone: Start: 02-17-2024 End: 02-18-2024 Manual Differential panel - Blood Ana Martinez MD Work Phone: Start: 02-16-2024 Comprehensive metabo lic panel Ana Martinez MD Work Phone: Start: 02-16-2024 Manual Differential panel - Blood Ana Martinez MD Work Phone: Start: 02-15-2024 Ecg routine ecg w/le ast 12 lds trcg only w/o i&r Ana Martinez MD Work Phone: Start: 02-15-2024 C-reactive protein Brina Rocha DO Work Phone: Start: 02-15-2024 Comprehensive metabo lic panel Nathan Gracia MD Work Phone: Start: 02-15-2024 Manual Differential panel - Blood Nathan Gracia MD Work Phone: Start: 02-15-2024 Urinalysis complete panel - Urine Brina Rocha DO Work Phone: Start: 02-15-2024 Urnls dip stick/tabl et reagent auto microscopy Brina Rocha DO Work Phone: Start: 02-15-2024 Bacteria identified in Blood by Culture Brina Rocha DO Work Phone: Start: 02-15-2024 Comprehensive metabo lic panel Brina Rocha DO Work Phone: Start: 02-15-2024 Manual Differential panel - Blood Brina Rocha DO Work Phone: Start: 02-15-2024 Ecg routine ecg w/le ast 12 lds trcg only w/o i&r Brina Rocha DO Work Phone: Start: 02-15-2024 Radiologic exam ches t single view Brina Rocha DO Work Phone: Start: 02-14-2024 Radiologic exam ches t 2 views Curt Last PA-C Work Phone: Start: 02-14-2024 Ct lumbar spine w/o contrast material Curt Last PA-C Work Phone: Start: 02-14-2024 Follow-up visit KORY IBARRA Start: 02-11-2024 Ct abdomen & pelvis w/o contrast material Elias G Abebaheim DO Work Phone: Start: 02-11-2024 Comprehensive metabo lic panel Elias G Nesheim DO Work Phone: Start: 02-11-2024 Manual differential performed [Presence] in Blood Elias G Nesheim DO Work Phone: Start: 02-11-2024 Urinalysis complete panel - Urine Elias G Abebaheim DO Work Phone: Start: 02-11-2024 Urnls dip stick/tabl et reagent auto microscopy Elias G Abebaheim DO Work Phone: Start: 02-04-2024 End: 02-04-2024 Radex spine lumbosacral 2/3 views Kelliealcon Maldonado DO Work Phone: Start: 01-25-2024 Follow-up visit KORY IBARRA Start: 12-21-2023 Follow-up visit KORY IBARRA Start: 12-16-2023 Radiologic exam ches t 2 views Kory Ibarra DO Work Phone: Start: 08-11-2023 Ecg routine ecg w/le ast 12 lds w/i&r Benita Moon MD Work Phone: Start: 08-02-2023 End: 08-02-2023 Screening digital breast tomosynthesis bi Kory Ibarra DO Work Phone: Start: 03-25-2023 Lipid 1996 panel - S twyla or Plasma Kory Ibarra DO Work Phone: Start: 09-22-2022 Lipid 1996 panel - S twyla or Plasma Benita Moon MD Work Phone: Start: 07-22-2022 Drug screen quantita tive digoxin total Benita Moon MD Work Phone: Start: 03-24-2022 Lipid 1996 panel - S twyla or Plasma Kory Ibarra DO Work Phone: Start: 01-18-2022 Plain chest X-ray Start: 12-01-2021 Prothrombin time Benita Moon MD Work Phone: Start: 10-13-2021 Echo tthrc r-t 2d w/ wom-mode compl spec&colr d Benita Moon MD Work Phone: Start: 09-29-2021 Drug screen quantita tive digoxin total Benita Moon MD Work Phone: Start: 09-29-2021 Prothrombin time Gene Maldonado MD Work Phone: Start: 07-24-2021 Diagnostic mammograp hy computer-aided detcj uni Laura [employer] Work Phone: Start: 07-24-[address] RIGHT MOIZ ST BIOPSY Laura [employer] TOP LIFT CUTTER - [employer] Work Phone: Start: 07-02-2021 End: 07-02-2021 Diagnostic mammography computer-aided detcj bi Kory Ibarra DO Work Phone: Start: 07-01-2021 Lipid 1996 panel - S twyla or Plasma Kory Ibarra DO Work Phone: Start: 12-30-2020 Manual Differential panel - Blood Kory Ibarra DO Work Phone: Start: 12-30-2020 End: 12-30-2020 Prothrombin time Ino Ly MD Work Phone: Start: 12-30-2020 Lipid panel Koyr Thomson etrillbessy DO Work Phone: Start: 12-17-2020 Prothrombin time John Ly MD Work Phone: Start: 10-03-2020 Prothrombin time John Ly MD Work Phone: Start: 09-24-2020 Prothrombin time Stephe n Kirk Ly MD Work Phone: Start: 08-16-2020 Prothrombin time Stephe n Kirk Ly MD Work Phone: Start: 05-23-2020 Prothrombin time Stephe n W Haskell Work Phone: Start: 05-15-2020 Prothrombin time Stephe n W Haskell Work Phone: Start: 04-29-2020 Prothrombin time Stephe n W Malachi Work Phone: Start: 04-11-2020 Prothrombin time Stephe n W Malachi Work Phone: Start: 04-02-2020 Prothrombin time Stephe n W Malachi Work Phone: Start: 03-28-2020 Prothrombin time Stephe n W Haskell Work Phone: Start: 03-18-2020 Prothrombin time Stephe n W Haskell Work Phone: Start: 03-12-2020 Prothrombin time Stephe n W Malachi Work Phone: Start: 02-20-2020 Prothrombin time Stephe n W Malachi Work Phone: Start: 02-01-2020 Prothrombin time Stephe n W Haskell Work Phone: Start: 01-25-2020 Prothrombin time Stephe n W Malachi Work Phone: Start: 11-27-2019 Diagnostic mammograp hy computer-aided detcj bi Kory Ibarra Work Phone: Start: 09-21-2019 Prothrombin time Stephe n W Haskell Work Phone: Start: 07-04-2019 Prothrombin time Stephe n W Malachi Work Phone: Start: 05-19-2019 Assay of thyroid sti mulating hormone tsh Kory Ibarra Work Phone: Start: 05-19-2019 Blood count complete auto&auto difrntl wbc Kory Ibarra Work Phone: Start: 05-19-2019 Comprehensive metabo lic panel Kory Ibarra Work Phone: Start: 05-19-2019 Lipid panel Kory Thomson [employer] Work Phone: Start: 05-19-2019 Prothrombin time Kory Ibarra Work Phone: Start: 04-25-2019 Prothrombin time Stepanup amrik Ly Work Phone: Start: 03-20-2019 Prothrombin time Stepanup Ly MD Work Phone: Start: 02-06-2019 Prothrombin time Stephe n Kirk Ly Work Phone: Start: 02-03-2019 Prothrombin time Stephe n Kirk Ly Work Phone: Start: 01-06-2019 Prothrombin time Stephe n W Haskell Work Phone: Start: 10-25-2018 Prothrombin time Stephe n W Malachi Work Phone: Start: 04-06-2017 Colonoscopy Kory landeros DO Work Phone: Respiratory Panel (PCR) Dr. Kory Ibarra Work Phone: SARS-CoV-2 & FLU Ant igen (Rapid) Streptococcus pneumo niae Antigen (M Dr. Kory Ibarra Work Phone: Plan of Treatment Date Care Activity Detail Author Start: 03-25-2028 Lipid panel [facility] Start: 09-23-2027 Lipid panel [facility] Start: 08-06-2027 Diabetes Screening Diabetes Screening [facility] Start: 04-06-2027 Colon cancer screen colonoscopy Colon cancer screen colonoscopy [place] Start: 04-06-2027 Screening for malignant neoplasm of colon [facility] Start: 03-24-2027 Lipid panel Lipid Panel [facility] Start: 07-01-2026 Lipid panel Lipid Panel [facility] Start: 03-25-2026 Diabetes Screening Diabetes Screening [facility] Start: 09-22-2025 Diabetes Screening Diabetes Screening [facility] Start: 08-05-2025 Creatinine measurement Creatinine Level [facility] Start: 08-05-2025 Potassium measurement Potassium Level [facility] Start: 06-21-2025 Creatinine measurement Creatinine Level [facility] Start: 06-21-2025 Potassium measurement Potassium Level [facility] Start: 05-08-2025 Creatinine measurement [facility] Start: 05-08-2025 Echocardiography Echocardiogram [facility] Start: 05-08-2025 Potassium measurement [facility] Start: 05-08-2025 [facility] Start: 05-05-2025 Creatinine measurement Creatinine Level [facility] Start: 05-05-2025 Potassium measurement Potassium Level [facility] Start: 05-03-2025 Creatinine measurement Creatinine Level [facility] Start: 05-03-2025 Potassium measurement Potassium Level [facility] Start: 04-27-2025 Creatinine measurement Creatinine Level [facility] Start: 04-27-2025 Potassium measurement Potassium Level [facility] Start: 04-18-2025 Creatinine measurement Creatinine Level [facility] Start: 04-18-2025 Potassium measurement Potassium Level [facility] Start: 04-03-2025 Creatinine measurement Creatinine Level [facility] Start: 04-03-2025 Diabetes mellitus screening [facility] Start: 04-03-2025 Potassium measurement Potassium Level [facility] Start: 02-21-2025 Creatinine measurement Creatinine Level [facility] Start: 02-21-2025 Potassium measurement Potassium Level [facility] Start: 02-16-2025 Creatinine measurement Creatinine Level [facility] Start: 02-16-2025 Echocardiography Ech[facility] Start: 02-16-2025 Potassium measurement Potassium Level [facility] Start: 02-15-2025 Creatinine measurement Creatinine Level [facility] Start: 02-15-2025 Potassium measurement Potassium Level [facility] Start: 02-13-2025 Creatinine measurement Creatinine Level [facility] Start: 02-13-2025 Potassium measurement Potassium Level [facility] Start: 02-10-2025 Creatinine measurement Creatinine Level [facility] Start: 02-10-2025 Potassium measurement Potassium Level [facility] Start: 01-15-2025 End: 01-15-2025 Patient encounter procedure 01/15/2025 1:00 PM EST Office Visit [facility] [address] [place] [address] Kory Ibarra, DO [address] [place] [address] [facility] [place] Start: 12-19-2024 Depression Monitoring Depression Monitoring [facility] Start: 09-19-2024 End: 08-20-2025 Basic metabolic 1998 panel - Serum or Plasma Basic metabolic panel Lab Routine Thrombocytopenia (HCC) Expected: 09/19/2024 (Approximate), Expires: 08/20/2025 [facility] Comment on above: Expected: 09/19/2024 (Approximate), Expi res: 08/20/2025 Start: 09-19-2024 End: 08-20-2025 CBC W Auto Differential panel - Blood CBC auto differential Lab Routine Thrombocytopenia (HCC) Expected: 09/19/2024 (Approximate), Expires: 08/20/2025 [facility] Comment on above: Expected: 09/19/2024 (Approximate), Expi res: 08/20/2025 Start: 09-19-2024 End: 08-20-2025 K/L Qnt Free Light Chains with Ratio K/L Qnt Free Light Chains with Ratio Lab Routine Thrombocytopenia (HCC) Expected: 09/19/2024 (Approximate), Expires: 08/20/2025 [facility] Work Phone: Comment on above: Expected: 09/19/2024 (Approximate), Expi res: 08/20/2025 Start: 09-18-2024 End: 09-18-2024 Patient encounter procedure 09/18/2024 2:[address] [facility] [address] [place] [address] Kory Ibarra, [address] [place] [address] [place] [address] [facility] Start: 08-23-2024 End: 08-23-2024 Patient encounter procedure 08/23/2024 2:00 PM EDT Appointment [facility] Non-Invasive Cardiology [address] [place] [id number] Benita Moon MD [address] [place], [place] [id number] [facility] Non-Invasive Cardiology Start: 08-15-2024 End: 08-15-2024 Patient encounter procedure 08/15/2024 10:00 AM EDT Office Visit [facility] [address] [place] [address] Kory Ibarra DO [address] [place] [address] [facility] Start: 08-01-2024 Screening for malignant neoplasm of breast [facility] Start: 07-31-2024 End: 07-31-2026 US Heart Transthoracic Transthoracic echocardiogram (TTE) complete with contrast, bubble, strain, and 3D PRN CV Echocardiography Routine Pulmonary HTN (HCC) Expected: 07/31/2024 (Approximate), Expires: 07/31/2026 [facility] Work Phone: Comment on above: Expected: 07/31/2024 (Approximate), Expi res: 07/31/2026 Start: 07-31-2024 End: 07-31-2024 Patient encounter procedure 07/31/2024 11:20 AM EDT Office Visit [facility] Cardiology [facility] [address] [place] [address] Benita Moon MD [address] [place] [address] [facility] Start: 06-27-2024 End: 06-27-2024 Patient encounter procedure 06/27/2024 2:20 PM EDT Procedure Visit [facility] [address] [place] [id number] Jamie Jimenez MD [address] [place] [address] [facility] [place] Start: 06-23-2024 End: 06-23-2025 Immunofixation Electrophoresis Immunofixation Electrophoresis Lab Routine Abnormal protein electrophoresis Expected: 06/23/2024 (Approximate), Expires: 06/23/2025 [facility] Comment on above: Expected: 06/23/2024 (Approximate), Expi res: 06/23/2025 Start: 06-23-2024 End: 06-23-2025 Immunoglobulins, IgG, IgA, IgM Immunoglobulins, IgG, IgA, IgM Lab Routine Abnormal protein electrophoresis Expected: 06/23/2024 (Approximate), Expires: 06/23/2025 [facility] Work Phone: Comment on above: Expected: 06/23/2024 (Approximate), Expi res: 06/23/2025 Start: 06-21-2024 End: 06-21-2024 ambulatory [facility] Start: 06-21-2024 End: 06-21-2024 Patient encounter procedure 06/21/2024 10:30 AM EDT Office Visit [facility] [address] [place] [address] Kory Ibarra, [address] [place] [id number] [facility] Start: 06-20-2024 Depression Monitoring Depression Monitoring [facility] Start: 06-20-2024 [facility] Start: 06-19-2024 End: 06-19-2025 CBC W Auto Differential panel - Blood CBC auto differential Lab Routine Normochromic normocytic anemia Expected: 06/19/2024 (Approximate), Expires: 06/19/2025 [facility] Comment on above: Expected: 06/19/2024 (Approximate), Expi res: 06/19/2025 Start: 06-19-2024 End: 06-19-2025 Cobalamin (Vitamin B12) [Mass/volume] in Serum or Plasma Vitamin B12 Lab Routine Normochromic normocytic anemia Expected: 06/19/2024 (Approximate), Expires: 06/19/2025 [facility] Comment on above: Expected: 06/19/2024 (Approximate), Expi res: 06/19/2025 Start: 06-19-2024 End: 06-19-2025 Comprehensive metabolic 1998 panel - Serum or Plasma Comprehensive metabolic panel Lab Routine Normochromic normocytic anemia Expected: 06/19/2024 (Approximate), Expires: 06/19/2025 [facility] Comment on above: Expected: 06/19/2024 (Approximate), Expi res: 06/19/2025 Start: 06-19-2024 End: 06-19-2025 Ferritin [Mass/volume] in Serum or Plasma Ferritin Lab Routine Normochromic normocytic anemia Expected: 06/19/2024 (Approximate), Expires: 06/19/2025 [facility] Work Phone: Comment on above: Expected: 06/19/2024 (Approximate), Expi res: 06/19/2025 Start: 06-19-2024 End: 06-19-2025 Iron and Iron binding capacity panel - Serum or Plasma Iron and TIBC Lab Routine Normochromic normocytic anemia Expected: 06/19/2024 (Approximate), Expires: 06/19/2025 [facility] Comment on above: Expected: 06/19/2024 (Approximate), Expi res: 06/19/2025 Start: 06-05-2024 Patient discharge [facility] Start: 06-03-2024 Referral to service [facility] Start: 06-02-2024 Ambulation without limitation [facility] Start: 06-02-2024 Assessment of risk of venous thromboembolism [facility] Start: 06-02-2024 Inhalation therapy procedure [facility] Start: 06-02-2024 Insertion of catheter into peripheral vein [facility] Start: 06-02-2024 Measuring intake and output [facility] Start: 06-02-2024 Oxygen therapy [facility] Start: 06-02-2024 Providing care according to standard [facility] Start: 06-02-2024 Referral to occupational therapist [facility] Start: 06-02-2024 Referral to service [facility] Start: 06-02-[address] [facility] Start: 06-02-2024 Following clinical pathway protocol [facility] Start: 06-02-[address] [facility] Start: 06-02-2024 Bacteria identified in Blood by Culture Blood Culture [facility] Start: 06-02-2024 Blood culture Blood Culture [facility] Start: 06-02-2024 Verification routine [facility] Start: 06-02-2024 Respiratory pathogens DNA and RNA panel - Respiratory specimen by STEPHANIE with probe detection [facility] Start: 06-02-2024 Admission procedure [facility] Start: 06-02-2024 Hospital admission, emergency, from emergency room, medical nature [facility] Start: 06-02-[address] [facility] Start: 06-02-2024 Continuous pulse oximetry [facility] Start: 06-02-2024 End: 06-02-[address] [facility] Start: 06-02-2024 Dual pressure spontaneous ventilation support [facility] Start: 06-02-2024 Patient referral to dietitian [facility] Start: 05-31-2024 End: 05-31-2025 Basic metabolic 1998 panel - Serum or Plasma Basic metabolic panel Lab Routine Permanent atrial fibrillation (HCC) Anticoagulant long-term use Expected: 05/31/2024 (Approximate), Expires: 05/31/2025 [facility] Comment on above: Expected: 05/31/2024 (Approximate), Expi res: 05/31/2025 Start: 05-31-2024 End: 05-31-2025 CBC W Auto Differential panel - Blood CBC auto differential Lab Routine Permanent atrial fibrillation (HCC) Anticoagulant long-term use Expected: 05/31/2024 (Approximate), Expires: 05/31/2025 [facility] Work Phone: Comment on above: Expected: 05/31/2024 (Approximate), Expi res: 05/31/2025 Start: 05-31-2024 End: 05-31-2024 ambulatory [facility] [place] Start: 05-31-2024 End: 05-31-2024 Patient encounter procedure 05/31/2024 10:00 AM EDT [facility] [address] [place] [address] [address] [place] [address] Chelo Huitron, TOP LIFT CUTTER - DESKTOP ENGINEER [address] [facility] [place] [address] [facility] [place] Start: 05-21-2024 End: 04-23-2025 Basic metabolic 1998 panel - Serum or Plasma Basic metabolic panel Lab Routine Venous insufficiency Expected: 05/21/2024 (Approximate), Expires: 04/23/2025 [facility] Work Phone: Comment on above: Expected: 05/21/2024 (Approximate), Expi res: 04/23/2025 Start: 05-08-2024 End: 05-01-2025 Basic metabolic 1998 panel - Serum or Plasma [facility] Work Phone: Start: 04-27-2024 End: 04-27-2025 Cortisol, urine, 24 hour Cortisol, urine, 24 hour Lab Routine Disorder of adrenal gland, unspecified (HCC) Expected: 04/27/2024 (Approximate), Expires: 04/27/2025 [facility] Comment on above: Expected: 04/27/2024 (Approximate), Expi res: 04/27/2025 Start: 04-27-2024 End: 04-27-2025 METANEPHRINES, FRACTIONATED, LC/MS/MS, RANDOM URINE QUEST METANEPHRINES, FRACTIONATED, LC/MS/MS, RANDOM URINE QUEST Lab Routine Disorder of adrenal gland, unspecified (HCC) Expected: 04/27/2024 (Approximate), Expires: 04/27/2025 [facility] Work Phone: Comment on above: Expected: 04/27/2024 (Approximate), Expi res: 04/27/2025 Start: 04-27-2024 End: 04-27-2024 Patient encounter procedure 04/27/2024 9:00 AM EST Office Visit [facility] - [address] [place] [phone] Benita Moon MD [address] [place] [address] [address] [place] [address] [facility] - [place] Start: 04-18-2024 End: 04-18-2025 Catecholamines,Frac Urine Catecholamines,Frac Urine Lab Routine Disorder of adrenal gland, unspecified (HCC) Permanent atrial fibrillation (HCC) Expected: 04/18/2024 (Approximate), Expires: 04/18/2025 [facility] Comment on above: Expected: 04/18/2024 (Approximate), Expi res: 04/18/2025 Start: 04-18-2024 End: 04-18-2025 Cortisol, urine, 24 hour Cortisol, urine, 24 hour Lab Routine Disorder of adrenal gland, unspecified (HCC) Permanent atrial fibrillation (HCC) Expected: 04/18/2024 (Approximate), Expires: 04/18/2025 [facility] Comment on above: Expected: 04/18/2024 (Approximate), Expi res: 04/18/2025 Start: 04-18-2024 End: 04-18-2025 METANEPHRINES, FRACTIONATED, LC/MS/MS, RANDOM URINE QUEST METANEPHRINES, FRACTIONATED, LC/MS/MS, RANDOM URINE QUEST Lab Routine Disorder of adrenal gland, unspecified (HCC) Permanent atrial fibrillation (HCC) Expected: 04/18/2024 (Approximate), Expires: 04/18/2025 [facility] Comment on above: Expected: 04/18/2024 (Approximate), Expi res: 04/18/2025 Start: 04-18-2024 End: 04-18-2025 VMA, urine VMA, urine Lab Routine Disorder of adrenal gland, unspecified (HCC) Permanent atrial fibrillation (HCC) Expected: 04/18/2024 (Approximate), Expires: 04/18/2025 [facility] Work Phone: Comment on above: Expected: 04/18/2024 (Approximate), Expi res: 04/18/2025 Start: 04-18-2024 End: 04-18-2024 Patient encounter procedure 04/18/2024 1:20 PM EST Procedure Visit [facility] - [place] [address] [place] [phone] Jamie Jimenez MD [address] [place] [address] [facility] Start: 04-06-2024 End: 04-06-2024 Patient encounter procedure 04/06/2024 11:00 AM EST Office Visit [facility] [address] [place] [address] Benita Moon MD [address] [place] [address] [address] [place] [address] [facility] Start: 04-05-2024 End: 04-05-2025 Basic metabolic 1998 panel - Serum or Plasma Basic metabolic panel Lab Routine Permanent atrial fibrillation (HCC) Expected: 04/05/2024 (Approximate), Expires: 04/05/2025 [facility] [employer] Work Phone: Comment on above: Expected: 04/05/2024 (Approximate), Expi res: 04/05/2025 Start: 04-05-2024 End: 04-05-2025 Digoxin level Digoxin level Lab Routine Permanent atrial fibrillation (HCC) Expected: 04/05/2024 (Approximate), Expires: 04/05/2025 [facility] Comment on above: Expected: 04/05/2024 (Approximate), Expi res: 04/05/2025 Start: 04-03-2024 End: 04-03-2025 Catecholamines,Frac Urine Catecholamines,Frac Urine Lab Routine Lesion of adrenal gland (HCC) Expected: 04/03/2024 (Approximate), Expires: 04/03/2025 [facility] Comment on above: Expected: 04/03/2024 (Approximate), Expi res: 04/03/2025 Start: 04-03-2024 End: 04-03-2025 CBC W Auto Differential panel - Blood CBC auto differential Lab Routine Lesion of adrenal gland (HCC) Expected: 04/03/2024 (Approximate), Expires: 04/03/2025 [facility] [employer] Work Phone: Comment on above: Expected: 04/03/2024 (Approximate), Expi res: 04/03/2025 Start: 04-03-2024 End: 04-03-2025 Comprehensive metabolic 1998 panel - Serum or Plasma Comprehensive metabolic panel Lab Routine Lesion of adrenal gland (HCC) Expected: 04/03/2024 (Approximate), Expires: 04/03/2025 [facility] Comment on above: Expected: 04/03/2024 (Approximate), Expi res: 04/03/2025 Start: 04-03-2024 End: 04-03-2025 Cortisol, urine, 24 hour Cortisol, urine, 24 hour Lab Routine Lesion of adrenal gland (HCC) Expected: 04/03/2024 (Approximate), Expires: 04/03/2025 [facility] Comment on above: Expected: 04/03/2024 (Approximate), Expi res: 04/03/2025 Start: 04-03-2024 End: 04-03-2025 Digoxin level Digoxin level Lab Routine Encounter for therapeutic drug level monitoring Expected: 04/03/2024 (Approximate), Expires: 04/03/2025 [facility] Comment on above: Expected: 04/03/2024 (Approximate), Expi res: 04/03/2025 Start: 04-03-2024 End: 04-03-2025 Hemoglobin A1c measurement Hemoglobin A1c Lab Routine Lesion of adrenal gland (HCC) Hyperglycemia Expected: 04/03/2024 (Approximate), Expires: 04/03/2025 [facility] Comment on above: Expected: 04/03/2024 (Approximate), Expi res: 04/03/2025 Start: 04-03-2024 End: 04-03-2025 Metanephrines, Urine Metanephrines, Urine Lab Routine Lesion of adrenal gland (HCC) Expected: 04/03/2024 (Approximate), Expires: 04/03/2025 [facility] Comment on above: Expected: 04/03/2024 (Approximate), Expi res: 04/03/2025 Start: 04-03-2024 End: 04-03-2025 Thyrotropin [Units/volume] in Serum or Plasma TSH Lab Routine Permanent atrial fibrillation (HCC) Expected: 04/03/2024 (Approximate), Expires: 04/03/2025 [facility] Comment on above: Expected: 04/03/2024 (Approximate), Expi res: 04/03/2025 Start: 04-03-2024 End: 04-03-2025 VMA, urine VMA, urine Lab Routine Lesion of adrenal gland (HCC) Expected: 04/03/2024 (Approximate), Expires: 04/03/2025 [facility] Comment on above: Expected: 04/03/2024 (Approximate), Expi res: 04/03/2025 Start: 04-03-2024 End: 04-03-2024 Patient encounter procedure 04/03/2024 8:30 AM EST Office Visit [facility] [place] [address] [place] [phone] Brooklyn Baldwin, TOP LIFT CUTTER - DESKTOP ENGINEER [address] [place], [place] [id number] [facility] Start: 03-25-2024 Creatinine measurement Creatinine Level [facility] Start: 03-25-2024 Potassium measurement Potassium Level [facility] Start: 03-24-2024 End: 03-24-2024 Patient encounter procedure 03/24/2024 10:00 AM EST Office Visit [facility] [address] [place] [phone] Kory Ibarra, DO [address] [place] [address] [place] [address] [facility] [place] Start: 03-16-2024 End: 03-16-2024 Patient encounter procedure 03/16/2024 10:15 AM EST Office Visit [facility] [place] [address] [place] [phone] Brooklyn Baldwin, TOP LIFT CUTTER - DESKTOP ENGINEER [address] [place] [address] [facility] [place] Start: 03-15-2024 Advance Directive Discussion Advance Directive Discussion [facility] Start: 03-15-2024 Medicare Advantage Annual Wellness Visit Medicare Advantage Annual Wellness Visit [facility] Start: 03-15-2024 [facility] Start: 02-28-2024 End: 02-28-2024 Patient encounter procedure 02/28/2024 2:30 PM EST Office Visit [facility] [place] [address] [place] [address] Kory Ibarra DO [address] [place] [phone] [facility] Start: 02-23-2024 End: 02-23-2024 Patient encounter procedure [facility] Start: 02-15-2024 End: 02-15-2024 Patient encounter procedure 02/15/2024 10:00 AM EST Office Visit [facility] [place] [address] [place] [phone] Brooklyn Baldwin, TOP LIFT CUTTER - DESKTOP ENGINEER [address] [place], [place] [phone] [facility] [place] Start: 02-14-2024 End: 02-13-2025 C reactive protein [Mass/volume] in Serum or Plasma by High sensitivity method [facility] Comment on above: Expected: 02/14/2024 (Approximate), Expi res: 02/13/2025 Start: 02-14-2024 End: 02-13-2025 CT Lumbar spine WO contrast [facility] Comment on above: Expected: 02/14/2024, Expires: Start: 02-14-2024 End: 02-13-2025 XR Chest 2 Views [facility] Work Phone: Comment on above: Expected: 02/14/2024, Expires: Start: 02-14-2024 End: 02-14-2024 Patient encounter procedure 02/14/2024 11:20 AM EST [facility] [address] [place] [address] Curt Last PA-C [address] [place] [address] [facility] [place] Start: 01-25-2024 End: 01-25-2024 Patient encounter procedure [facility] Start: 12-21-2023 End: 12-20-2024 CBC W Auto Differential panel - Blood CBC auto differential Lab Routine Postmenopausal vaginal bleeding Expected: 12/21/2023 (Approximate), Expires: 12/20/2024 [facility] Work Phone: Comment on above: Expected: 12/21/2023 (Approximate), Expi res: 12/20/2024 Start: 12-21-2023 End: 12-20-2024 Comprehensive metabolic 1998 panel - Serum or Plasma Comprehensive metabolic panel Lab Routine Postmenopausal vaginal bleeding Expected: 12/21/2023 (Approximate), Expires: 12/20/2024 [facility] Comment on above: Expected: 12/21/2023 (Approximate), Expi res: 12/20/2024 Start: 12-21-2023 End: 12-20-2024 US Pelvis US pelvis Imaging Routine Postmenopausal vaginal bleeding Expected: 12/21/2023, Expires: 12/20/2024 [facility] Comment on above: Expected: 12/21/2023, Expires: Start: 12-21-2023 End: 12-21-2023 Patient encounter procedure 12/21/2023 10:00 AM EDT Office Visit [facility] [place] [address] [place] [address] Kory Ibarra DO [address] [place] [address] [facility] [place] Start: 12-15-2023 End: 12-14-2024 XR Chest 2 Views XR chest 2 views Imaging STAT Leukocytosis, unspecified type Expected: 12/15/2023, Expires: 12/14/2024 [facility]: Comment on above: Expected: 12/15/2023, Expires: Start: 12-13-2023 End: 12-12-2024 CBC W Auto Differential panel - Blood CBC auto differential Lab Routine Atrial fibrillation, unspecified type (HCC) Expected: 12/13/2023 (Approximate), Expires: 12/12/2024 [facility]: Comment on above: Expected: 12/13/2023 (Approximate), Expi res: 12/12/2024 Start: 12-13-2023 End: 12-12-2024 Urinalysis complete panel - Urine Urinalysis with reflex microscopic Lab Routine Atrial fibrillation, unspecified type (HCC) Expected: 12/13/2023 (Approximate), Expires: 12/12/2024 [facility] on above: Expected: 12/13/2023 (Approximate), Expi res: 12/12/2024 Start: 11-17-2023 End: 11-17-2023 Patient encounter procedure 11/17/2023 8:30 AM EDT Office Visit [facility] [address] [place] [address] Kory Ibarra, [address] [place] [address] [facility] Start: 11-14-2023 COVID-19 Vaccine ( season) COVID-19 Vaccine ( season) [facility] Start: 11-14-2023 COVID-19 Vaccine ( season) COVID-19 Vaccine ( season) [facility] Start: 11-14-2023 Influenza vaccination Influenza Vaccine (#1) [facility] Start: 11-14-2023 [facility] Start: 10-23-2023 Medicare Advantage Annual Wellness Visit (AWV) Medicare Advantage Annual Wellness Visit (AWV) [facility] Start: 09-24-2023 End: 09-24-2023 Patient encounter procedure 09/24/2023 10:30 AM EDT Office Visit [facility] [address] [place] [address] Kory Ibarra, DO [address] [place] [address] [facility] Start: 09-23-2023 Creatinine measurement Creatinine Level [facility] Start: 09-23-2023 Potassium measurement Potassium Level [facility] Start: 08-11-2023 End: 08-11-2023 Patient encounter procedure 08/11/2023 10:40 AM EDT Office Visit [facility] [address] [place] [address] Benita Moon MD [address] [place] [address] [address] [place] [address] [facility] Start: 07-25-2023 Screening for malignant neoplasm of breast Breast cancer screen [facility] Start: 07-03-2023 Screening for malignant neoplasm of breast Breast cancer screen [facility] Start: 06-15-2023 End: 06-15-2023 Patient encounter procedure 06/15/2023 2:00 PM EDT Office Visit [facility] [address] [place] [address] [place] [address] Jimbo Khalil MD [address] [place] [address] [place] [address] [facility] Start: 06-02-2023 End: 06-02-2023 Patient encounter procedure 06/02/2023 11:40 AM EDT Appointment [facility] [address] [place] [phone] Kory Ibarra, DO [address] [place] [address] [facility] Start: 05-31-2023 COVID-19 Vaccine () COVID-19 Vaccine () [facility] Start: 05-11-2023 End: 05-11-2023 Patient encounter procedure 05/11/2023 2:30 PM EST Office Visit [facility] [address] [place] [address] [place] [address] Jimbo Khalil MD [address] [place] [address] [place] [address] [facility] Start: 05-10-2023 Lipid screen Lipid screen [place], [place] Start: 04-20-2023 End: 04-20-2023 Patient encounter procedure 04/20/2023 1:30 PM EST Office Visit [facility] [address] [place] [address] [address] Jimbo Khalil MD [address] [place] [address] [place] [address] [facility] Start: 03-29-2023 End: 02-03-2024 Basic metabolic 1998 panel - Serum or Plasma Basic metabolic panel Lab Routine Permanent atrial fibrillation (CMS/HCC) (HCC) Anticoagulant long-term use Expected: 03/29/2023 (Approximate), Expires: 02/03/2024 [facility] Comment on above: Expected: 03/29/2023 (Approximate), Expi res: 02/03/2024 Start: 03-29-2023 End: 02-03-2024 CBC W Auto Differential panel - Blood CBC auto differential Lab Routine Permanent atrial fibrillation (CMS/HCC) (HCC) Anticoagulant long-term use Expected: 03/29/2023 (Approximate), Expires: 02/03/2024 [facility] Work Phone: Comment on above: Expected: 03/29/2023 (Approximate), Expi res: 02/03/2024 Start: 03-25-2023 End: 03-25-2024 CBC W Auto Differential panel - Blood CBC auto differential Lab Routine Essential hypertension Expected: 03/25/2023 (Approximate), Expires: 03/25/2024 [facility] Work Phone: Comment on above: Expected: 03/25/2023 (Approximate), Expi res: 03/25/2024 Start: 03-25-2023 End: 03-25-2024 Comprehensive metabolic 1998 panel - Serum or Plasma Comprehensive metabolic panel Lab Routine Essential hypertension Expected: 03/25/2023 (Approximate), Expires: 03/25/2024 [facility] Comment on above: Expected: 03/25/2023 (Approximate), Expi res: 03/25/2024 Start: 03-25-2023 End: 05-23-2024 DBT Breast - bilateral screening Bilateral screening mammogram with tomosynthesis Imaging Routine Breast cancer screening by mammogram Expected: 03/25/2023, Expires: 05/23/2024 [facility] Comment on above: Expected: 03/25/2023, Expires: Start: 03-25-2023 Depression Monitoring Depression Monitoring [facility] Start: 03-25-2023 Depresssion Monitoring Depresssion Monitoring [facility] Start: 03-25-2023 End: 03-25-2024 Digoxin level Digoxin level Lab Routine Anticoagulant long-term use Expected: 03/25/2023 (Approximate), Expires: 03/25/2024 [facility] Comment on above: Expected: 03/25/2023 (Approximate), Expi res: 03/25/2024 Start: 03-25-2023 End: 03-25-2024 Lipid 1996 panel - Serum or Plasma Lipid panel Lab Routine Hypercholesteremia Expected: 03/25/2023 (Approximate), Expires: 03/25/2024 [facility] Comment on above: Expected: 03/25/2023 (Approximate), Expi res: 03/25/2024 Start: 03-25-2023 End: 03-25-2024 Thyrotropin [Units/volume] in Serum or Plasma TSH Lab Routine Hypercholesteremia Expected: 03/25/2023 (Approximate), Expires: 03/25/2024 [facility] Comment on above: Expected: 03/25/2023 (Approximate), Expi res: 03/25/2024 Start: 03-25-2023 End: 03-25-2023 Patient encounter procedure [facility] Start: 03-24-2023 Creatinine measurement Creatinine Level [facility] Start: 03-24-2023 Diabetes mellitus screening Diabetes Screening [facility] Start: 03-24-2023 Potassium measurement Potassium Level [facility] Start: 03-15-2023 Advance Directive Discussion Advance Directive Discussion [facility] Start: 03-15-2023 Depression Assessment Depression Assessment [facility] Start: 03-15-2023 Medicare [facility] Annual Wellness Visit Medicare Advantage Annual Wellness Visit [facility] Start: 12-22-2022 End: 12-22-2022 Patient encounter procedure 12/22/2022 2:45 PM EDT Office Visit [facility] [address] [place] [address] Chelo Huitron, TOP LIFT CUTTER - DESKTOP ENGINEER [address] [place] [address] [facility] Start: 11-13-2022 Covid-19 Vaccine ( season) Covid-19 Vaccine ( season) [facility] Start: 11-13-2022 Influenza vaccination Influenza Vaccine (#1) [facility] Start: 09-22-2022 End: 09-23-2023 CBC W Auto Differential panel - Blood CBC auto differential Lab Routine Essential hypertension Expected: 09/22/2022 (Approximate), Expires: 09/23/2023 [facility] Work Phone: Comment on above: Expected: 09/22/2022 (Approximate), Expi res: 09/23/2023 Start: 09-22-2022 End: 09-23-2023 Comprehensive metabolic 1998 panel - Serum or Plasma Comprehensive metabolic panel Lab Routine Essential hypertension Expected: 09/22/2022 (Approximate), Expires: 09/23/2023 [facility] Comment on above: Expected: 09/22/2022 (Approximate), Expi res: 09/23/2023 Start: 09-22-2022 End: 09-23-2023 Lipid 1996 panel - Serum or Plasma Lipid panel Lab Routine Hypercholesteremia Expected: 09/22/2022 (Approximate), Expires: 09/23/2023 [facility] Comment on above: Expected: 09/22/2022 (Approximate), Expi res: 09/23/2023 Start: 09-22-2022 End: 11-24-2023 MG Breast - bilateral Screening Bilateral screening mammogram Imaging Routine Breast cancer screening by mammogram Expected: 09/22/2022, Expires: 11/24/2023 [facility] Comment on above: Expected: 09/22/2022, Expires: Start: 09-22-2022 End: 09-23-2023 Thyrotropin [Units/volume] in Serum or Plasma TSH Lab Routine Longstanding persistent atrial fibrillation (CMS/HCC) (HCC) Expected: 09/22/2022 (Approximate), Expires: 09/23/2023 [facility] Comment on above: Expected: 09/22/2022 (Approximate), Expi res: 09/23/2023 Start: 09-22-2022 End: 09-22-2022 Patient encounter procedure [facility] Start: 07-02-2022 Annual Wellness Visit (AWV) [facility] Start: 07-02-2022 Screening for malignant neoplasm of breast Mammogram [facility] Start: 07-01-2022 Creatinine [facility] Start: 07-01-2022 Depression Monitoring Depression Monitoring [facility] Start: 07-01-2022 Lipid panel Lipids [facility] Start: 07-01-2022 Potassium [Moles/volume] in Serum or Plasma Potassium [facility] Start: 07-01-2022 Potassium measurement Potassium Level [facility] Start: 06-15-2022 End: 06-15-2022 Patient encounter procedure 06/15/2022 Office Visit Cardiology Benita Moon MD [address] [place] [address] [address] [place] [address] [facility] Start: 06-08-2022 End: 06-08-2022 Patient encounter procedure 06/08/2022 Office Visit Cardiology Benita Moon MD [address] [place] [address] [facility] Start: 03-30-2022 End: 03-30-2022 Patient encounter procedure 03/30/2022 Office Visit Cardiology Benita Moon MD [address] [place] [address] [facility] Start: 03-24-2022 End: 03-24-2023 CBC W Auto Differential panel - Blood CBC auto differential Lab Routine Essential hypertension Expected: 03/24/2022 (Approximate), Expires: 03/24/2023 [facility] Comment on above: Expected: 03/24/2022 (Approximate), Expi res: 03/24/2023 Start: 03-24-2022 End: 03-24-2023 Comprehensive metabolic 1998 panel - Serum or Plasma Comprehensive metabolic panel Lab Routine Essential hypertension Expected: 03/24/2022 (Approximate), Expires: 03/24/2023 [facility] Comment on above: Expected: 03/24/2022 (Approximate), Expi res: 03/24/2023 Start: 03-24-2022 End: 03-24-2023 Hemoglobin A1c/Hemoglobin.total in Blood Hemoglobin A1c Lab Routine Hyperglycemia Expected: 03/24/2022 (Approximate), Expires: 03/24/2023 [facility] Comment on above: Expected: 03/24/2022 (Approximate), Expi res: 03/24/2023 Start: 03-24-2022 End: 03-24-2023 Lipid 1996 panel - Serum or Plasma Lipid panel Lab Routine Hypercholesteremia Expected: 03/24/2022 (Approximate), Expires: 03/24/2023 [employer] [facility] Comment on above: Expected: 03/24/2022 (Approximate), Expi res: 03/24/2023 Start: 03-24-2022 End: 03-24-2023 XR Knee - left 4 Views XR knee 4+ views left Imaging Routine Chronic pain of left knee Expected: 03/24/2022, Expires: 03/24/2023 [facility] Work Phone: Comment on above: Expected: 03/24/2022, Expires: Start: 03-15-2022 Advance Directive Discussion Advance Directive Discussion [facility] Start: 03-15-2022 Depression Assessment Depression Assessment [facility] Start: 02-13-2022 End: 02-13-2022 Patient encounter procedure 02/13/2022 Office Visit Family Medicine Kory Ibarra, DO [address] [place] [address] [facility] Start: 01-29-2022 End: 01-29-2022 Patient encounter procedure 01/29/2022 Office Visit Breast Clinic / Breast Center Laura Yang APRN - DESKTOP ENGINEER [address] [facility] [address] [place] [address] [facility] Start: 01-27-2022 End: 01-27-2022 Patient encounter procedure 01/27/2022 [facility] Start: 01-27-[address] [facility] Work Phone: Start: 01-26-[address] [facility] Work Phone: Start: 01-25-[address] [facility] Work Phone: Start: 01-24-[address] [facility] Work Phone: Start: 01-23-[address] [facility] Work Phone: Start: 01-22-2022 Patient discharge [facility] Work Phone: Start: 01-19-2022 Respiratory secretion precautions [facility] Work Phone: Start: 01-19-2022 End: 01-19-2022 Referral to service [facility] Work Phone: Start: 01-19-2022 Following clinical pathway protocol [facility] Work Phone: Start: 01-19-2022 Assessment of risk of venous thromboembolism [facility] Work Phone: Start: 01-19-2022 Care regimes management [facility] Work Phone: Start: 01-19-2022 Catheterization of vein [facility] Work Phone: Start: 01-19-2022 Incentive spirometry [facility] Work Phone: Start: 01-19-2022 Inhalation therapy procedure [facility] Work Phone: Start: 01-19-2022 Insertion of catheter into peripheral vein [facility] Work Phone: Start: 01-19-2022 Measuring intake and output [facility] Work Phone: Start: 01-19-2022 Oxygen therapy [facility] Work Phone: Start: 01-19-2022 Physiotherapy of chest [facility] Work Phone: Start: 01-19-2022 Providing care according to standard [facility] Work Phone: Start: 01-19-2022 Provision of activity privileges [facility] Work Phone: Start: 01-18-2022 Legionella pneumophila Ag [Presence] in Urine [facility] Work Phone: Start: 01-18-2022 Streptococcus pneumoniae antigen assay [facility] Work Phone: Start: 01-18-2022 End: 01-19-[address] [facility] Work Phone: Start: 01-18-2022 Taking nasal swab [facility] Work Phone: Start: 01-18-2022 Admission procedure [facility] Work Phone: Start: 01-18-[address] [facility] Work Phone: Start: 01-06-2022 COVID-19 Vaccine (3 - Booster for Moderna series) COVID-19 Vaccine (3 - Booster for Moderna series) [facility] Comment on above: Postponed from 01/14/2021 (Patient Refus ed) Start: 12-31-2021 End: 12-31-2021 Patient encounter procedure 12/31/2021 Office Visit Family Medicine Kory Ibarra, DO [address] [place] [address] [facility] Start: 12-30-2021 Creatinine measurement Creatinine monitoring [facility] Work Phone: Start: 12-30-2021 Lipid panel Lipid screen [facility] Work Phone: Start: 12-30-2021 Potassium monitoring Potassium monitoring [facility] Work Phone: Start: 11-26-2021 Screening for malignant neoplasm of breast Breast cancer screen [place], [place] Start: 11-13-2021 Influenza vaccination Flu vaccine (#1) [facility] Start: 10-28-2021 End: 10-28-2021 Patient encounter procedure 10/28/2021 Office Visit Cardiology Chelo Huitron, TOP LIFT CUTTER - DESKTOP ENGINEER [address] [facility] [place] [address] [facility] Start: 10-27-2021 End: 10-27-2021 ambulatory 10/27/2021 Anti-coag visit Pharmacy [facility] Start: 10-06-2021 End: 10-06-2021 Patient encounter procedure 10/06/2021 Appointment Echocardiography Benita Moon MD [address] [place] [address] [address] [place] [address] [facility] Start: 08-14-2021 End: 08-14-2021 Patient encounter procedure [facility] Start: 08-06-2021 End: 08-06-2021 Patient encounter procedure 08/06/2021 Office Visit [facility] Medicine Kory Ibarra, DO [address] [place] [address] [facility] Start: 08-05-2021 End: 08-05-2021 Patient encounter procedure 08/05/2021 Office Visit Cardiology Chelo Huitron, TOP LIFT CUTTER - DESKTOP ENGINEER [address] [facility] [address] [place] [phone] [facility] Start: 07-09-2021 End: 07-09-2021 Patient encounter procedure 07/09/2021 Office Visit Cardiology Chelo Huitron, TOP LIFT CUTTER - DESKTOP ENGINEER [address] [facility] [address] [place] [address] [facility] Start: 06-18-2021 End: 06-18-2021 Patient encounter procedure 06/18/2021 Office Visit [facility] Medicine Kory Ibarra, [address] [id number] [facility] Start: 05-21-2021 Annual Wellness Visit (AWV) Annual Wellness Visit (AWV) [facility] Work Phone: Start: 05-20-2021 Creatinine measurement [facility]inine [facility] Work Phone: Start: 05-20-2021 Lipid panel Lipid screen [facility] Work Phone: Start: 05-20-2021 Potassium monitoring Potassium monitoring [facility] Work Phone: Start: 02-04-2021 Shingles Vaccine (2 of 2) Shingles Vaccine (2 of 2) [facility] Start: 01-20-2021 End: 01-20-2021 Patient encounter procedure 01/20/2021 Appointment Radiology [facility] Start: 01-14-2021 COVID-19 Vaccine (3 - Booster for Moderna series) COVID-19 Vaccine (3 - Booster for Moderna series) [facility] Start: 12-30-2020 End: 12-30-2020 Patient encounter procedure 12/30/2020 Office Visit Cardiology Ino Ly MD [address] [place] [address] [phone] [facility] Start: 12-25-2020 End: 12-25-2020 Patient encounter procedure 12/25/2020 Appointment Radiology [facility] Start: 12-18-2020 End: 12-18-2020 Patient encounter procedure 12/18/2020 Office Visit Family Medicine Kory Ibarra, DO [address] [place] [address] [phone] [facility] Start: 12-07-2020 Breast cancer screen Breast cancer screen [facility], [place] Start: 12-07-2020 Screening for malignant neoplasm of breast Breast cancer screen [facility], [place] Start: 11-29-2020 Creatinine measurement Creatinine monitoring [facility], [place] Start: 11-29-2020 Lipid panel Lipid screen [facility] [place] Start: 11-29-2020 Potassium monitoring Potassium monitoring [facility] [place] Start: 11-14-2020 End: 11-14-2020 Office Visit 11/14/2020 Office Visit Family Medicine Kory Ibarra, DO [address] [place] [address] [phone] [facility] Start: 11-13-2020 Influenza vaccination Flu vaccine (#1) [facility] Work Phone: Start: 10-09-2020 COVID-19 Vaccine (3 - Booster for Moderna series) COVID-19 Vaccine (3 - Booster for Moderna series) [facility] Start: 10-09-2020 COVID-19 Vaccine (3 - Moderna series) COVID-19 Vaccine (3 - Moderna series) [facility] Start: 06-25-2020 End: 06-25-2020 Office Visit 06/25/2020 Office Visit Cardiology Chelo Huitron, TOP LIFT CUTTER - DESKTOP ENGINEER [address] [facility]. [address] [place] [phone] [facility] Start: 05-29-2020 End: 05-29-2020 Office Visit 05/29/2020 Office Visit Family Medicine Kory Ibarra, DO [address] [place] [address] [phone] [facility] Start: 05-20-2020 End: 05-20-2020 Office Visit 05/20/2020 Office Visit Family Medicine Kory Ibarra, DO [address] [place] [address] [phone] [facility] Start: 05-18-2020 Creatinine measurement Creatinine monitoring [place], [place] Start: 05-18-2020 Lipid panel Lipid [place], [place] Start: 05-18-2020 Potassium monitoring Potassium [place] Start: 05-17-2020 Annual Wellness Visit (AWV) Annual Wellness Visit (AWV) [place] Start: 12-14-2019 End: 12-14-2019 Office Visit 12/14/2019 Office Visit Cardiology Ino Ly MD [facility] [address] [place], [place] [id number] [facility] Start: 11-30-2019 End: 11-30-2019 Office Visit 11/30/2019 Office Visit Family Kory Hunt, DO [address] [place] [address] [phone] [facility] Start: 11-24-2019 Mammography Mammogram Screening [facility] Start: 11-24-2019 Screening for malignant neoplasm of breast Mammogram Screening [facility] Start: 11-17-2019 End: 11-17-2019 Office Visit 11/17/2019 Office Visit Family Kory Hunt, DO [address] [place] [address] [phone] [facility] Start: 11-14-2019 Influenza vaccination [place] Start: 11-07-2019 End: 11-07-2019 Appointment 11/07/2019 Appointment Radiology [facility] Start: 10-02-2019 End: 10-02-2019 Appointment 10/02/2019 Appointment Radiology [facility] Start: 06-08-2019 End: 06-08-2019 Appointment 06/08/2019 Appointment Radiology [facility] Start: 05-12-2019 End: 05-12-2019 Office Visit 05/12/2019 Office Visit Family Medicine Kory Ibarra, DO [address] [place] [address] [phone] [facility] Start: 05-10-2019 Creatinine monitoring Creatinine monitoring [place] Start: 05-10-2019 Lipid screen Lipid [place] Start: 05-10-2019 Potassium monitoring Potassium [place] Start: 04-25-2019 End: 04-25-2019 Office Visit 04/25/2019 Office Visit Cardiology Ino Ly MD [address] [place] [address] [phone] [facility] Start: 12-05-2018 End: 12-05-2018 Office Visit 12/05/2018 Office Visit Family Medicine Kory Ibarra DO [address] [place] [address] [phone] [facility] Start: 11-13-2018 Influenza vaccination Flu vaccine (#1) [place] Start: 11-09-2018 End: 11-09-2018 Office Visit 11/09/2018 Office Visit Family Medicine Kory Ibarra DO [address] [place] [address] [phone] [facility] Start: 10-12-2018 Breast cancer screen Breast cancer screen [place], [place] Start: 09-01-2018 Annual Wellness Visit (AWV) Annual Wellness Visit (AWV) [place] Start: 2016 Bone Density Screening Bone Density Screening [facility] Start: 2016 DEXA (modify frequency per FRAX score) DEXA (modify frequency per FRAX score) [place] Start: 2016 Screening for osteoporosis Bone Density Screening [facility] Start: 2014 Annual Wellness Visit (AWV) Annual Wellness Visit (AWV) [place] Start: 2011 RSV Immunization aged 60 or older (1 - 1-dose 60+ series) RSV Immunization aged 60 or older (1 - 1-dose 60+ series) [facility] Start: 2011 RSV Immunization for Adults (1 - Risk 60-74 years 1-dose series) RSV Immunization for Adults (1 - Risk 60-74 years 1-dose series) [facility] Start: 2011 RSV Vaccine (1 - 1-dose 60+ series) RSV Vaccine (1 - 1-dose 60+ series) [facility] Start: 2011 [facility] Start: 2006 Screening for osteoporosis DEXA (modify frequency per FRAX score) [facility] Start: 2001 Shingles Vaccine (1 of 2) Shingles Vaccine (1 of 2) [place] Start: 1996 Cologuard (FIT-DNA) Cologuard (FIT-DNA) [facility] Start: 1996 Colonoscopy Colonoscopy [facility] Start: 1996 Colorectal Cancer Screening Colorectal Cancer Screening [facility] Start: [address] Colonography [facility] Start: 1996 Diabetes Screening Diabetes Screening [facility] Start: 1996 Fecal Occult Blood Fecal Occult Blood [facility] Start: 1996 Lipid 1996 panel - Serum or Plasma Lipid Screening [facility] Start: 1996 Screening for malignant neoplasm of colon [facility] Start: 1996 Sigmoidoscopy Sigmoidoscopy [facility] Start: 1991 Diabetes screen Diabetes screen [place], [place] Start: 1986 Diabetes screen Diabetes screen [facility] Start: 1970 DTaP/Tdap/Td Vaccines (1 - Tdap) DTaP/Tdap/Td Vaccines (1 - Tdap) [facility] Start: 1970 Urine microalbumin profile DTaP,Tdap,Td Vaccine (1 - Tdap) [facility] Start: 1970 [facility] Start: 1969 Anxiety Screening Anxiety Screening [facility] Start: 1969 Depression Screening Depression Screening [facility] Start: 1969 Diabetes mellitus screening Diabetes Screening [facility] Start: 1969 Hepatitis C screening [facility] Start: 1969 Hepatitis C Screening Hepatitis C Screening [facility] Start: 1967 COVID-19 Vaccine (1 of 2) COVID-19 Vaccine (1 of 2) [facility] Work Phone: Start: 1963 COVID-19 Vaccine (1) COVID-19 Vaccine (1) [facility] Work Phone: Start: 1963 Depresssion Monitoring Depresssion Monitoring [facility] Start: 1950 Echocardiography Echocardiogram [facility] Start: 1951 Hepatitis B Vaccines (1 of 3 - 3-dose series) Hepatitis B Vaccines (1 of 3 - 3-dose series) [facility] Start: 1951 Hepatitis C screen [facility] [place] [place] Start: 1951 Hepatitis C screening [facility] [place] [place] Start: 1950 Medicare Advantage Annual Wellness Visit (AWV) Medicare Advantage Annual Wellness Visit (AWV) [facility] Start: 1950 Screening for malignant neoplasm of colon [facility] Start: 1950 Screening for osteoporosis [facility] Hemoglobin A1c/Hemoglobin.total in Blood [facility] Work Phone: End: 05-02-2024 Hemoglobin.gastrointest inal.lower [Presence] in Stool by Immunoassay --1st specimen [facility] Work Phone: IgG, IgA, IgM IgG, IgA, IgM La b Routine Abnormal protein electrophoresis Ordered: 06/23/2024 [facility] Comment on above: Ordered: 06/23/2024 Immunofixation Electrophoresis Immunofixation Electrophoresis Lab Routine Abnormal protein electrophoresis Ordered: 06/23/2024 [facility] Comment on above: Ordered: 06/23/2024 Immunoglobulins, IgG , IgA, IgM Immunoglobulins, IgG, IgA, IgM Lab Routine Abnormal protein electrophoresis 06/30/2024 4:49 PM EDT [employer] [facility] End: 07-02-2021 MG Cancer Risk Survey [facility] Work Phone: Comment on above: Once for 1 Occurrences starting 07/03/19 until 07/02/2021 OUTSIDE PROCEDURE SCAN OUTSIDE P ROCEDURE SCAN Procedures Ordered: 07/22/2022 [facility] Comment on above: Ordered: 07/22/2022 OUTSIDE PROCEDURE SCAN OUTSIDE P ROCEDURE SCAN Procedures Ordered: 04/18/2024 [facility] Comment on above: Ordered: 04/18/2024 OUTSIDE PROCEDURE SCAN OUTSIDE P ROCEDURE SCAN Procedures Ordered: 04/27/2024 [facility] Comment on above: Ordered: 04/27/2024 Patient Education Heart Failure Flare Up Signs Heart Failure: Tracking Your Weight Heart Failure Make Changes Diet Heart Failure Dc Heart Failure Care [facility] Work Phone: Patient referral [facility] Work Phone: End: 05-04-2024 Peripheral blood smear [facility] End: 05-04-2024 Peripheral Blood Smear [facility] Peripheral blood smear [facility] Peripheral Blood Smear [facility] Protein [Mass/volume ] in Serum or Plasma Protein, total Lab Routine Normochromic normocytic anemia Ordered: 06/19/2024 [facility] Comment on above: Ordered: 06/19/2024 Protein, Total and Protein Electrophoresis [facility] Comment on above: Ordered: 06/19/2024 Respiratory pathogen s DNA and RNA 12b panel - Unspecified specimen by STEPHANIE with probe detection [facility] Work Phone: End: 11-23-2018 Screening digital breast tomosynthesis bi Luna Ernst Digital Screen Bilateral Imaging Routine Once for 1 Occurrences starting 11/23/2018 until 11/23/2018 [email or web address] [email or web address] Comment on above: Once for 1 Occurrences starting 11/24/19 until 11/23/2018 Screening digital breast tomosynthesis bi Luna Ernst Digital Screen Bilateral Imaging Routine 11/23/2018 10:54 AM EDT [facility] Serum Electrophoresis [facility] Comment on above: Ordered: 06/19/2024 End: 07-24-2021 Surgical Pathology [facility] Work Phone: Comment on above: Once for 1 Occurrences starting 07/25/19 until 07/24/2021 Troponin T.cardiac [Mass/volume] in Serum or Plasma by High sensitivity method [facility] Troponin T.cardiac [Mass/volume] in Serum or Plasma by High sensitivity method [facility] End: 07-02-2021 US BREAST LIMITED RIGHT [facility] Work Phone: Comment on above: Once for 1 Occurrences starting 07/03/19 until 07/02/2021 Immunizations Immunization Date Immunization Notes Care Provider Priyanka villagran 02-16-2024 influenza vaccine A& B surf ant adjuvanted (Fluad) HIGH-DOSE injection 0.5 mL Brina Rocha DO Work Phone: [facility] 12-21-2023 Seasonal trivalent influenza vaccine, adjuvanted, preservative free Kory Ibarra DO Work Phone: [facility] 01-30-2023 Influenza, High-dose Seasonal, Quadrivalent, Preservative Free Kory Ibarra DO Work Phone: [facility] 01-30-2023 influenza virus vacc ine, unspecified formulation Benita Moon MD Work Phone: [facility] 01-16-2022 Influenza, High-dose Seasonal, Quadrivalent, Preservative Free Chelo Huitron TOP LIFT CUTTER - DESKTOP ENGINEER Work Phone: [facility] 01-16-2022 zoster vaccine recombinant Chelo Huitron TOP LIFT CUTTER - DESKTOP ENGINEER Work Phone: [facility] 01-16-2022 influenza virus vacc ine, unspecified formulation Kory Ibarra DO Work Phone: [facility] 12-18-2020 Influenza, High-dose , Quadv, 65 yrs +, IM (Fluzone) Ino Ly MD Work Phone: [facility] Work Phone: 12-10-2020 zoster vaccine recombinant Kory Ibarra DO Work Phone: [facility] Work Phone: 08-14-2020 COVID-19, Moderna, Primary or Immunocompromised, PF, 100mcg/0.5mL Kory Ibarra DO Work Phone: [facility] Work Phone: 07-17-2020 COVID-19, Moderna, Primary or Immunocompromised, PF, 100mcg/0.5mL Kory Ibarra DO Work Phone: [facility] Work Phone: 11-30-2019 Influenza, High-dose , Quadv, 65 yrs +, IM (Fluzone) Ino [facility] 01-06-2019 Seasonal trivalent influenza vaccine, adjuvanted, preservative free [employer] LIFT CUTTER - DESKTOP ENGINEER Work Phone: [facility] 05-12-2018 pneumococcal polysaccharide vaccine, 23 valent [facility] 01-03-2018 influenza, high dose seasonal, preservative-free [facility] 01-05-2017 pneumococcal conjuga te vaccine, 13 valent Kory Ibarra DO Work Phone: [facility] Work Phone: 01-05-2017 Seasonal trivalent influenza vaccine, adjuvanted, preservative free [employer] LIFT CUTTER - DESKTOP ENGINEER Work Phone: [facility] 12-13-2016 influenza, high dose seasonal, preservative-free [facility] 12-13-2016 pneumococcal conjuga te vaccine, 13 valent [facility], [place] 08-03-2016 pneumococcal conjuga te vaccine, 13 valent [facility] 02-10-2016 influenza, injectabl e, quadrivalent, preservative free Dr. Davis Irene DO Work Phone: [facility] 02-10-2016 influenza, seasonal, injectable [facility] Work Phone: 01-17-2016 influenza virus vacc ine, unspecified formulation Kory Higginbothamportia DO Work Phone: [facility] Work Phone: 01-17-2016 influenza, injectabl e, quadrivalent, contains preservative [facility] [place], [place] 12-13-2013 influenza virus vacc ine, unspecified formulation Ino Ly [facility] [place] 12-13-2013 influenza, seasonal, injectable Chelo Huitron TOP LIFT CUTTER - DESKTOP ENGINEER Work Phone: [facility] 01-30-2009 novel influenza-H1N1 -09, preservative-free, injectable Chelo Huitron TOP LIFT CUTTER - DESKTOP ENGINEER Work Phone: [facility] Payers Date Payer Category Payer Self-pay [id number] 2022 Medicare (Managed Care) [facility] DUAL COMPLETE HMO POS SNP [id number] 2022 Medicare HMO [id number] 2022 Unknown [id number] 2021 Medicare [id number]. [id number] 2018 Medicaid [id number]. [id number] 2018 Medicare HUMANA MEDICARE HUMANA CHOICE-PPO MEDICARE xxxxxxxxx 2018-Present [address] [address] [place] [address] xxxxxxxxx [id number] 2018 Medicare [id number]. [id number] 2018 Medicaid [id number] 2016 Unknown [id number] 1950 Unknown [id number] 2.16.840.1.786610.3.579.2. 1950 Unknown [id number] 2.16.840.1.979396.3.579.2. 1951 Unknown [id number] 2.16.840.1.761641.3.579.2. 1951 Unknown [id number] 2.16.840.1.227061.3.579.2. 1951 Unknown [id number] 2.16.840.1.601310.3.579.2. 1951 Unknown [id number] 2.16.840.1.488406.3.579.2. 1951 Unknown [id number] 2.16.840.1.833388.3.579.2. 8 1951 Unknown [id number] 2.16.840.1.790002.3.579.2. 1951 Unknown [id number] 2.16.840.1.295924.3.579.2. 1950 Unknown [id number] 2.16.840.1.552564.3.579.2. 8 Medicare MEDICARE PART A B [id number] Private Health Insurance Private Health Insurance AETNA SR SUPPLEM ENT INS [id number] Unknown Unknown COMMERCIAL OTHER [id number] Unknown [id number] 2.16.840.1.868484.3.579.2. 462 Unknown [id number] 2.16.840.1.210538.3.579.2. 462 Unknown [id number] 2.16.840.1.566577.3.579.2. 462 Unknown [id number] 2.16.840.1.307232.3.579.2. 462 Unknown [id number] 2.16.840.1.961156.3.579.2. 462 Unknown [id number] 2.16.840.1.398534.3.579.2. 462 Unknown [id number] 2.16.840.1.771136.3.579.2. 462 Unknown [id number] 2.16.840.1.488405.3.579.2. 462 Unknown [id number] 2.16.840.1.292131.3.579.2. 462 Unknown [id number] 2.16.840.1.357428.3.579.2. 462 Unknown [id number] 2.16.840.1.466169.3.579.2. 462 Social History Date Type Detail Facility Start: 12-11-2018 End: 12-29-2022 Tobacco smoking status NHIS Never smoker [place] Start: 12-11-2018 End: 08-23-2024 Alcohol intake Current non-drinker of alcohol (finding) [place] Start: 11-09-2018 End: 12-18-2020 History SDOH Alcohol Frequency 1 [place] Start: 11-09-2018 End: 07-01-2021 History SDOH Social Connections Phone 3 [place] Start: 11-09-2018 History SDOH Social Connections Zoroastrianism 2 [place] Start: 11-09-2018 History SDOH Social Connections Meetings 98 [place] Start: 11-09-2018 History SDOH Financial 4 [place] Start: 10-08-2016 Alcohol Comment rare Darlene pulido [facility] Start: 1950 Sex Assigned At Not on file M lucie Peng [facility] Start: 05-17-2019 End: 12-29-2022 Tobacco use and exposure Never used Darlene [facility] [place] Start: 11-09-2018 End: 04-28-2024 Alcohol intake No Darlene [facility] Start: 12-18-2020 History SDOH Financial 5 [facility] Work Phone: Start: 01-18-2022 End: 01-19-2022 Tobacco smoking status NHIS Unknown if ever smoked [facility] Work Phone: Start: 07-14-2016 None [facility] Start: 07-14-2016 With Family [facility] Start: 10-27-2013 Non-smoker [facility] Start: 1950 Sex Assigned At Female W [facility] Start: 03-14-2022 End: 09-22-2022 Exposure to SARS-CoV-2 (event) Not sure [facility] Start: 06-15-2022 End: 04-28-2024 History of Social function [facility] National Score (1-10 0), lower number is lower risk Not on file [facility] Start: 10-13-2021 End: 06-05-2024 Sex Female (finding) [facility] How often to you hav e a drink containing alcohol? Never [facility] Has the [employer], or [employer] threatened to shut off services in your home in past 12Mo No [employer] [facility] (I/We) worried myesha er (my/our) food would run out before (I/we) got money to buy more. Never true [facility] Goals Date Patient Goal Desired Activity /State Comment on above: Lose weight Barriers: none Plan for overcoming my barriers: N/A Confidence: 12/22 Anticipated Goal Completion Date: 11/10/19 Formatting of this n ote might be different from the original. Lose weight Barriers: none Plan for overcoming my barriers: N/A Confidence: 12/22 Anticipated Goal Completion Date: 11/10/19 Functional Status Date Assessment Result Facility 06-19-2024 Patient Health Questionnaire 2 item (PHQ-2) [Reported] [facility]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 Coronary artery disease Sister Midge Kidney disease Sister Midge ? etiol, age 79, in 10/01 Coronary artery disease Sister Khloe 65 CABG but age 90 No Known Problems Brother Gene Asthma Brother Bill No Known Problems Maternal Grandmother No Known Problems Maternal Grandfather Breast cancer Paternal Grandmother Hayley Womack No Known Problems Paternal Grandfather age 100 Social History Social History Tobacco Use Smoking status: Never Smokeless tobacco: Never Vaping Use Vaping status: Never Used Substance Use Topics Alcohol use: No Drug use: No Comment: Caffeine: Maybe just in soda or tea Allergies: Allergies Allergen Reactions Bee Venom Other Honey Bee Venom Morphine Other Oxycodone Other reaction(s): Mental Status Change Did not like the feeling Statins Other Muscle aches Tetanus Toxoids Swelling Other reaction(s): Unknown Medications: Current Outpatient Medications: acetaminophen (Tylenol 8 Hour) 650 MG ER tablet, Take 650 mg by mouth every 8 hours as needed for mild pain (1-3). Do not crush, chew, or split., Disp: , Rfl: albuterol (2.5 MG/3ML) 0.083% nebulizer solution, Take 3 mL (2.5 mg) by nebulization every 6 hours as needed for wheezing., Disp: 75 mL, Rfl: 2 albuterol 108 (90 Base) MCG/ACT inhaler, INHALE TWO PUFFS BY MOUTH EVERY 4 HOURS NEEDED FOR WHEEZING OR FOR SHORTNESS OF BREATH (BULK), Disp: 6.7 g, Rfl: 1 apixaban (Eliquis) 5 MG tablet, TAKE 1 TABLET BY MOUTH 2 TIMES DAILY, Disp: 180 tablet, Rfl: 3 atorvastatin (Lipitor) 10 MG tablet, TAKE ONE TABLET BY MOUTH DAILY AT 5PM, Disp: 90 tablet, Rfl: 1 calcitonin, salmon, (Miacalcin) 200 UNIT/ACT nasal spray, Administer 1 spray into one nostril daily., Disp: , Rfl: Calcium Carbonate-Vitamin D (CALCIUM-VITAMIN D PO), Take by mouth., Disp: , Rfl: cetirizine (ZyrTEC) 10 MG tablet, Take 10 mg by mouth Nightly., Disp: , Rfl: dilTIAZem (Cardizem) 60 MG immediate release tablet, Take 1 tablet (60 mg) by mouth every 8 hours., Disp: 360 tablet, Rfl: 1 Docusate Sodium (DSS) 100 MG capsule, 100 mg., Disp: , Rfl: Dulera 100-5 MCG/ACT inhaler, Please see attached for detailed directions (Patient taking differently: Inhale 2 puffs 2 times daily. Please see attached for detailed directions), Disp: , Rfl: ferrous sulfate 324 (65 Fe) MG EC tablet, One bid on empty stomach 30 min before meals or 2 hours after, Disp: 60 tablet, Rfl: 3 folic acid (Folvite) 1 MG tablet, Take 1 tablet (1 mg) by mouth daily., Disp: 30 tablet, Rfl: 2 furosemide (Lasix) 40 MG tablet, Take 1 tablet (40 mg) by mouth 2 times daily., Disp: 60 tablet, Rfl: 11 lisinopril 20 MG tablet, Take 20 mg by mouth daily., Disp: , Rfl: metoprolol tartrate (Lopressor) 25 MG tablet, Take 75 mg by mouth 2 times daily., Disp: , Rfl: miconazole (Micotin) 2 % powder, Apply topically 2 times daily., Disp: , Rfl: nystatin (Mycostatin) 706889 UNIT/GM powder, Apply topically 3 times daily., Disp: 60 g, Rfl: 2 potassium chloride CR (Klor-Con M10) 10 MEQ ER tablet, Take 1 tablet (10 mEq) by mouth 2 times daily. Do not crush or chew., Disp: 60 tablet, Rfl: 11 sertraline (Zoloft) 50 MG tablet, TAKE 1 TABLET BY MOUTH EVERY DAY IN EARLY EVENING, Disp: 90 tablet, Rfl: 1 tiotropium (Spiriva Respimat) 2.5 MCG/ACT inhaler, Inhale 2 puffs daily., Disp: 4 g, Rfl: 11 Review of Systems: Review of Systems Constitutional: Negative for activity change, chills, diaphoresis, fatigue and fever. HENT: Negative for nosebleeds and trouble swallowing. Congestion: Allergies. Eyes: Negative for discharge and visual disturbance. Respiratory: Negative for apnea, cough, chest tightness, shortness of breath and wheezing. Cardiovascular: Negative for chest pain, palpitations and leg swelling. Gastrointestinal: Negative for abdominal distention, abdominal pain, blood in stool, diarrhea, nausea and vomiting. Endocrine: Negative for cold intolerance and heat intolerance. Genitourinary: Negative for hematuria. Musculoskeletal: Negative for gait problem and myalgias. Skin: Negative for color change and rash. Neurological: Negative for dizziness, seizures, syncope, facial asymmetry, speech difficulty, weakness, light-headedness, numbness and headaches. Hematological: Does not bruise/bleed easily. Psychiatric/Behavioral: Negative for dysphoric mood. Physical Examination: Vitals: Vitals: 07/31/24 1134 07/31/24 1208 BP: (S) (!) 150/80 136/64 BP Location: Right arm Patient Position: Sitting BP Cuff Size: Large adult Pulse: 98 SpO2: 94% Weight: 216 lb 6.4 oz (98.2 kg) Height: 4' 11 (1.499 m) Body mass index is 43.71 kg/m . Physical Exam Constitutional: Appearance: Normal appearance. She is obese. HENT: Head: Normocephalic. Mouth/Throat: Pharynx: No oropharyngeal exudate. Eyes: General: No scleral icterus. Right eye: No discharge. Left eye: No discharge. Cardiovascular: Rate and Rhythm: Normal rate. Rhythm irregular. Heart sounds: No murmur heard. No gallop. Pulmonary: Effort: No respiratory distress. Abdominal: General: There is no distension. Tenderness: There is no abdominal tenderness. Musculoskeletal: General: Normal range of motion. Cervical back: Normal range of motion. Right lower leg: No edema (chronic dry skin changes). Left lower leg: No edema. Skin: General: Skin is warm and dry. Neurological: Mental Status: She is alert and oriented to person, place, and time. Laboratory Tests: Lab Results Component Value Date WBC 7.4 06/21/2024 HGB 8.6 (L) 06/21/2024 HCT 28.4 (L) 06/21/2024 MCV 95.6 06/21/2024 PLT 80 (L) 06/21/2024 Lab Results Component Value Date GLUCOSE 103 06/21/2024 CALCIUM 9.4 06/21/2024 NA 145 06/21/2024 K 3.4 (L) 06/21/2024 CO2 29 06/21/2024 CL 108 (H) 06/21/2024 BUN 17 06/21/2024 CREATININE 0.71 06/21/2024 @LASTCMP@ Lab Results Component Value Date CHOL 123 07/01/2021 CHOL 127 12/30/2020 CHOL 134 05/20/2020 Lab Results Component Value Date TRIG 141 07/01/2021 TRIG 167 (A) 12/30/2020 TRIG 154 (A) 05/20/2020 Lab Results Component Value Date HDL 31 (L) 07/01/2021 HDL 31 (L) 12/30/2020 HDL 33 (L) 05/20/2020 No results found for: LDLCALC NT PRO BNP Date Value Ref Range Status 05/01/2024 6,313 (H) <125 pg/mL Final Cardiac Tests: Echo 10/13/21: SUMMARY: 1. Technically difficult study. 2. Left ventricle: Systolic function is normal by the biplane method of disks. The estimated ejection fraction is 59%. 3. Right ventricle: The cavity size is normal. Systolic function is mildly decreased. Right ventricular systolic pressure is moderately to severely increased. The estimated peak pressure is 63 mm Hg. 4. Mitral valve: There is no evidence for stenosis. 5. Tricuspid valve: There is moderate, 2+ regurgitation directed eccentrically. 6. Inferior vena cava: The vessel is dilated. The IVC collapses by less than 50% with inspiration, consistent with elevated central venous pressure. Echo 02/14/24: Left Ventricle: Left ventricle size is normal. Normal wall thickness. Normal left ventricular systolic function. EF by 2D Simpsons Biplane is 66%. Normal wall motion. Right Ventricle: Right ventricle size is normal. Reduced systolic function. Aortic Valve: Moderate (2+) regurgitation. Mitral Valve: Valve structure is normal. MV mean gradient is 5 mmHg. Thickened leaflets. Calcified leaflets. Mild to moderate (1-2+) regurgitation. Mild stenosis noted. MV mean gradient is 5 mmHg. Tricuspid Valve: Moderately severe (3+) regurgitation. Reversed hepatic vein systolic flow. RVSP may be underestimated in the setting of severe TR. RVSP is 60 mmHg. Left Atrium: Left atrium is severely dilated. LA Vol Index A/L is 75 mL/m2. Right Atrium: Right atrium is severely dilated. Pericardium: Small (<1 cm) circumferential pericardial effusion present. Echo 04/27/24: Left Ventricle: Left ventricle size is normal. Normal wall thickness. Normal left ventricular systolic function. The EF by visual approximation is 60%. Normal wall motion. Right Ventricle: Right ventricle size is normal. Normal systolic function. Aortic Valve: Mildly thickened cusps. No cusp calcification. Mild (1+) regurgitation. No stenosis. Mitral Valve: Mildly thickened leaflets. Mildly calcified leaflets. Moderate (2+) regurgitation. No stenosis noted. Tricuspid Valve: Severe (4+) regurgitation. RVSP is 70 mmHg. Left Atrium: Left atrium is severely dilated. Right Atrium: Right atrium is moderately dilated. Echo at [facility] 06/03/24: Assessment and Plan: 1. Permanent atrial fibrillation (HCC) Permanent, nonvalvular. Heart rate remains controlled. On Eliquis 5 mg PO BID. No bleeding. -On Toprol 75 mg BID and diltiazem 60 mg every 8 hours. Will continue that. Will reassess LVEF with echocardiogram. [id number] Score for Atrial Fibrillation Stroke Risk Risk Factors Component Value C CHF Yes 1 H HTN Yes 1 A2 Age >= 75 No 0 D DM No 0 S2 Prior Stroke/TIA No 0 V Vascular Disease No 0 A Age 65-74 Yes, (78 y.o.) 1 Sc Sex female 1 [id number] Score 4 2. Anticoagulant long-term use On eliquis 5 mg PO BID- No falls HGB 8.6, hematocrit 28.4 on 06/21/24; she will be getting worked up with GI in hope to find a cause of her iron deficiency anemia. She also has chronic both thrombocytopenia (Plt 80 06/21/2024)which is stable. Will discuss with her PCP referral for hematology. 3. TV regurgitation/pulmonary HTN She had an echocardiogram in April 2024 when she was admitted with dig toxicity and eventually also had influenza and respiratory failure requiring ICU admission. At that time she was noted to have severe TR and pulmonary hypertension with a PASP of 70 mmHg on echocardiogram. There is a report documented from May 2024 at [facility] where her TR was graded as mild to moderate and PASP was 50 mmHg Multifactorial - Obesity,CHRISTIANNE and higher PASP could have been in the ICU setting with respiratory failure. Recommend CPAP compliance for CHRISTIANNE. 4. 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 Recovered LVEf, 66% (12.2.24); LVEF 60% 04/27/24; LVEF reported 40% per echo at [facility] in may of 2024, this was probably in the setting of A-fib with RVR. Recommend an echocardiogram to reevaluate LVEF now that her heart rates are well-controlled. This will also help us determine whether the Cardizem needs to be continued (that was started at [facility].) -Continue Lasix 40 mg BID with potassium supplementation -Continue lisinopril 20 mg daily -Continue metoprolol 75 mg BID Most recent creatinine was 0.71 and K was 3.4 in June 5. Aortic Insufficiency mild per echo 04/27/24 Recommend good blood pressure control. RTC In 6 months documented in this encounter [facility] 07-17-2024 Telephone encounter Note Medication name: dilTIAZem (Cardizem) 60 MG immediate release tablet Medication dosage: 60 mg (Miligrams Monthly quantity needed: 90 How many day supply requestin days Medication route: oral (PO) Medication administration time(s): every 8 hours If taking medication PRN, reason for taking medication: N/A If this is a controlled substance do you receive this or any other controlled medication from any other doctor or facility: N/A Ordering provider: fred Date of last office visit: 06/19/2024 Date of next office visit: 08/15/2024 Date of last refill: (see medication tab): 06.05.24 Updated/Validated preferred pharmacy: Yes Patient instructed to contact the pharmacy prior to picking up the medication: N/A [facility] 07-17-2024 Miscellaneous Notes Medication name: dilTIAZem (Cardizem) 60 MG immediate release tablet Medication dosage: 60 mg (Miligrams Monthly quantity needed: 90 How many day supply requestin days Medication route: oral (PO) Medication administration time(s): every 8 hours If taking medication PRN, reason for taking medication: N/A If this is a controlled substance do you receive this or any other controlled medication from any other doctor or facility: N/A Ordering provider: fred Date of last office visit: 06/19/2024 Date of next office visit: 08/15/2024 Date of last refill: (see medication tab): 06.05.24 Updated/Validated preferred pharmacy: Yes Patient instructed to contact the pharmacy prior to picking up the medication: N/A documented in this encounter [facility] 07-03-2024 Miscellaneous Notes Referral pended for dx and doctor's signature Images from the original note were not included. Kory Ibarra DO 07/02/2024 9:23 AM EDT Back to Top I do not agree with her not getting the GI consultation for upper and lower endoscopy. I am unsure why she is so anemic. Place referral to Dr. Yu or [facility] as directed and I encourage her to keep that consultation. Kerri Morse MA 06/26/2024 1:35 PM EDT Spoke with patient and she says for now she wants to just take her iron pills and see how it goes, pt says she will get the labs done tmrw. Kory Ibarra DO 06/23/2024 12:28 PM EDT Patient with a persistent iron deficiency anemia and will need to begin iron supplementation. However the #1 cause of iron deficiency anemia and a nonvegetarian is perhaps some type of GI bleeding. She will need referral to GI physician for evaluation to consider and upper and lower endoscopy. If she agrees Post referral to either [facility] or Dr. Yu in [place]. There is a slight abnormality in your serum protein electrophoresis and they are requesting additional lab to make sure she has no bone marrow issues. That has been ordered. I do note that her platelets are persistently low and that could be from her anticoagulant Eliquis hat she needs. After obtaining the results of the additional blood work ordered today, she might need to see hooker inspector as well. But for now, she needs the GI consultation. . documented in this encounter [facility] 07-03-2024 Note Referral pended for dx and doctor's signature [facility] 07-03-2024 Telephone encounter Note Referral pended for dx and doctor's signature [facility] 07-03-2024 Telephone encounter Note Images from the original note were not included. Kory Chayito DO Fred 07/02/2024 9:23 AM EDT Back to Top I do not agree with her not getting the GI consultation for upper and lower endoscopy. I am unsure why she is so anemic. Place referral to Dr. Yu or [facility] as directed and I encourage her to keep that consultation. Kerri Morse MA 06/26/2024 1:35 PM EDT Spoke with patient and she says for now she wants to just take her iron pills and see how it goes, pt says she will get the labs done tmrw. Kory Ibarra DO 06/23/2024 12:28 PM EDT Patient with a persistent iron deficiency anemia and will need to begin iron supplementation. However the #1 cause of iron deficiency anemia and a nonvegetarian is perhaps some type of GI bleeding. She will need referral to GI physician for evaluation to consider and upper and lower endoscopy. If she agrees Post referral to either [facility] or Dr. Yu in [place]. There is a slight abnormality in your serum protein electrophoresis and they are requesting additional lab to make sure she has no bone marrow issues. That has been ordered. I do note that her platelets are persistently low and that could be from her anticoagulant Eliquis hat she needs. After obtaining the results of the additional blood work ordered today, she might need to see hooker inspector as well. But for now, she needs the GI consultation. [facility] 07-03-2024 Telephone encounter Note . [facility] 06-23-2024 Miscellaneous Notes Addended by: DAVIS KERN on: 06/30/2024 04:36 PM Modules accepted: Orders documented in this encounter [facility] 06-23-2024 Note Addended by: DAVIS KERN on: 06/30/2024 04:36 PM Modules accepted: Orders [facility] 06-23-2024 Telephone encounter Note Provider has not reviewed the results. Once reviewed by the provider the office will reach out to patient. [facility] 06-23-2024 Miscellaneous Notes Provider has not reviewed the results. Once reviewed by the provider the office will reach out to patient. Name of caller: Alta Baker Contact phone number: [phone] Relationship to Patient: patient Provider: Dr. Ibarra Practice: [facility] Chief Complaint/Reason for Call: Patient would like to have a call back regarding her lab results from 06.21.2024. Please advise, thank you. Best time of day caller can be reached: Any Patient advised that office/PCP has 24-48 business hours to return their call: Yes documented in this encounter [facility] 06-23-2024 Telephone encounter Note Name of caller: Alta Baker Contact phone number: [phone] Relationship to Patient: patient Provider: Dr. Ibarra Practice: [facility] Chief Complaint/Reason for Call: Patient would like to have a call back regarding her lab results from 06.21.2024. Please advise, thank you. Best time of day caller can be reached: Any Patient advised that office/PCP has 24-48 business hours to return their call: Yes [facility] 06-19-2024 History of Present illness Narrative Images from the original note were not included. [facility] - [address] [facility] [id number] Visit type: Established Patient Reason for Visit: Hospital Follow-up Assessment / Plan: Alta was seen today for hospital follow-up. Diagnoses and all orders for this visit: Heart failure with improved ejection fraction (HFimpEF) ([facility]) (Primary) Comments: Improved on Lasix, and lisinopril and metoprolol, prescription for hospital bed given Normochromic normocytic anemia Comments: Subacute, unsure of etiology, check lab, possible GI eval if appears to be persistent iron deficiency Orders: - Ferritin; Future - Protein, Total and Protein Electrophoresis - Vitamin B12; Future - Iron and TIBC; Future - Comprehensive metabolic panel; Future - CBC auto differential; Future - Ferritin - Vitamin B12 - Iron and TIBC - Comprehensive metabolic panel - CBC auto differential Morbidly obese (HCC) Comments: Improved continue low-carb and low-fat meals and walk as tolerated Chronic obstructive pulmonary disease, unspecified COPD type (HCC) Comments: Stable after prednisone, continue Spiriva Orders: - DME Order for hospital bed Longstanding persistent atrial fibrillation (HCC) Comments: Improved on diltiazem, metoprolol, and Eliquis Depression, unspecified depression type Comments: Improved, continue Zoloft, encouragement given Other orders - furosemide (Lasix) 40 MG tablet; Take 1 tablet (40 mg) by mouth 2 times daily. Subjective: Patient ID: Alta Baker is a 74 y.o. female. 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 Sent home on different doses of Lasix, metoprolol, lisinopril, and diltiazem was added. Also given prednisone burst with improvement. She is feeling much better. Denies shortness of breath chest pain or palpitations. No fever or purulent phlegm. Taking Spiriva routinely. Interestingly repeat echocardiogram showed LV ejection fraction of only 40% and it was normal on April's exam with summa. Concerned about ongoing normochromic normocytic anemia. Labs are confusing. Presenting hemoglobin was quite normal but discharged hemoglobin was down to 8.7. Of note she had persistent anemia since last January when she apparently had vaginal bleeding. No recurrence since February but she has not undergone INVESTIGATION DIVISION CAPTAIN checkup for appropriate workup. Review of Systems patient states she is feeling better. Very happy at home. Zoloft is beneficial. Denies phlegm or fever pleurisy. Denies sense of palpitations, orthopnea and lower extremity edema is much better. She denies heartburn or early satiety. No abdominal pain. No melena or blood or mucus. No constipation or diarrhea. No dysuria hematuria. She denies recurrent vaginal bleeding Allergies Allergen Reactions Bee Venom Other Honey Bee Venom Morphine Other Oxycodone Other reaction(s): Mental Status Change Did not like the feeling Statins Other Muscle aches Tetanus Toxoids Swelling Other reaction(s): Unknown Current Outpatient Medications on File Prior to Visit Medication Sig Dispense Refill acetaminophen (Tylenol 8 Hour) 650 MG ER tablet Take 650 mg by mouth every 8 hours as needed for mild pain (1-3). Do not crush, chew, or split. albuterol (2.5 MG/3ML) 0.083% nebulizer solution Take 3 mL (2.5 mg) by nebulization every 6 hours as needed for wheezing. 75 mL 2 albuterol 108 (90 Base) MCG/ACT inhaler INHALE TWO PUFFS BY MOUTH EVERY 4 HOURS NEEDED FOR WHEEZING OR FOR SHORTNESS OF BREATH (BULK) 6.7 g 1 apixaban (Eliquis) 5 MG tablet TAKE 1 TABLET BY MOUTH 2 TIMES DAILY 180 tablet 3 atorvastatin (Lipitor) 10 MG tablet TAKE ONE TABLET BY MOUTH DAILY AT 5PM 90 tablet 1 calcitonin, salmon, (Miacalcin) 200 UNIT/ACT nasal spray Administer 1 spray into one nostril daily. Calcium Carbonate-Vitamin D (CALCIUM-VITAMIN D PO) Take by mouth. cetirizine (ZyrTEC) 10 MG tablet Take 10 mg by mouth Nightly. dilTIAZem (Cardizem) 60 MG immediate release tablet Take 60 mg by mouth every 8 hours. Docusate Sodium (DSS) 100 MG capsule 100 mg. folic acid (Folvite) 1 MG tablet Take 1 tablet (1 mg) by mouth daily. 30 tablet 2 metoprolol tartrate (Lopressor) 25 MG tablet Take 75 mg by mouth 2 times daily. miconazole (Micotin) 2 % powder Apply topically 2 times daily. nystatin (Mycostatin) 233316 UNIT/GM powder Apply topically 3 times daily. 60 g 2 sertraline (Zoloft) 50 MG tablet TAKE 1 TABLET BY MOUTH EVERY DAY IN EARLY EVENING 90 tablet 1 tiotropium (Spiriva Respimat) 2.5 MCG/ACT inhaler Inhale 2 puffs daily. 4 g 11 [DISCONTINUED] furosemide (Lasix) 40 MG tablet Take 1 tablet (40 mg) by mouth daily. (Patient taking differently: Take 40 mg by mouth 2 times daily.) 30 tablet 11 lisinopril 20 MG tablet Take 20 mg by mouth daily. [DISCONTINUED] metoprolol tartrate (Lopressor) 50 MG tablet Take 2 tablets (100 mg) by mouth 2 times daily. [DISCONTINUED] mometasone-formoterol (Dulera 100) 100-5 MCG/ACT inhaler Inhale 2 puffs 2 times daily. Rinse mouth with water after use to reduce aftertaste and incidence of candidiasis. Do not swallow. (Patient not taking: Reported on 06/19/2024) 13 g 11 [DISCONTINUED] ondansetron (Zofran) 4 MG tablet Take 1 tablet (4 mg) by mouth every 12 hours as needed for nausea or vomiting for up to 20 doses. 20 tablet 0 [DISCONTINUED] pantoprazole (ProtoNix) 40 MG EC tablet Take 1 tablet (40 mg) by mouth every morning (before breakfast) for 6 days. Do not crush, chew, or split. Do not start before May 06, 2024. 6 tablet 0 No current facility-administered medications on file prior to visit. Patient Active Problem List Diagnosis Hypercholesteremia 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) Asthma Venous insufficiency History of pulmonary embolism Anticoagulant long-term use Atrial fibrillation (HCC) Mitral regurgitation Morbidly obese (HCC) Allergic rhinitis Pulmonary HTN (HCC) CHRISTIANNE on CPAP Depression COPD (chronic obstructive pulmonary disease) (HCC) Cor pulmonale, chronic (HCC) Major depressive disorder in remission (CMS/HCC) (HCC) Essential hypertension Gallstone Nonrheumatic tricuspid valve regurgitation Nonrheumatic aortic valve insufficiency Social History Tobacco Use Smoking status: Never Smokeless tobacco: Never Substance Use Topics Alcohol use: No Past Surgical History: Procedure Laterality Date APPENDECTOMY 1970 BREAST BIOPSY Right 07/24/2021 CAPSULOTOMY, HAND 2006 MARTY/DCC 08/22 also and 03/29 as well. CAPSULOTOMY, HAND 2014 x8 CATARACT EXTRACTION Bilateral 2013 COLONOSCOPY 03/2017 divert ds - Turowski- due 2027 OVARIAN CYST REMOVAL Right 1984 TUBAL LIGATION 1979 Family History Problem Relation Name Age of Onset Lung cancer Mother age 60, smoker High Blood Pressure Father Stroke Father age 62 Coronary artery disease Sister Midge Kidney disease Sister Midge ? etiol, age 79, in 10/01 Coronary artery disease Sister Khloe 65 CABG but age 90 No Known Problems Brother Gene Asthma Brother Bill No Known Problems Maternal Grandmother No Known Problems Maternal Grandfather Breast cancer Paternal Grandmother No Known Problems Paternal Grandfather age 100 Objective: BP 126/78 Pulse 92 Temp 36.4 C (97.6 F) (Temporal) Resp 16 Ht 4' 11 (1.499 m) Wt 199 lb 9.6 oz (90.5 kg) SpO2 96% BMI 40.31 kg/m Physical Exam Vital signs are stable. Pleasant alert and cooperative. Off oxygen. Of note she uses O2 at home. Nonicteric. Moist mucous membranes. Clear oropharynx. No JVD. No carotid bruits. Heart is slightly irregular. No new murmurs or gallops. Lungs are diminished in both bases but without wheezes rhonchi or egophony. Abdomen obese nontender without pain hepatosplenomegaly masses or ascites. Extremities have trace ankle edema but improved. Reviewed past CT of the abdomen, a couple echocardiograms, EKGs, cardiology consultations and recent hospital records again. documented in this encounter [facility] 06-19-2024 History of Present illness Narrative Images from the original note were not included. [facility] - [address] [facility] [id number] Visit type: Established Patient Reason for Visit: Hospital Follow-up Assessment / Plan: Alta was seen today for hospital follow-up. Diagnoses and all orders for this visit: Heart failure with improved ejection fraction (HFimpEF) ([facility]) (Primary) Comments: Improved on Lasix, and lisinopril and metoprolol, prescription for hospital bed given Normochromic normocytic anemia Comments: Subacute, unsure of etiology, check lab, possible GI eval if appears to be persistent iron deficiency Orders: - Ferritin; Future - Protein, Total and Protein Electrophoresis - Vitamin B12; Future - Iron and TIBC; Future - Comprehensive metabolic panel; Future - CBC auto differential; Future - Ferritin - Vitamin B12 - Iron and TIBC - Comprehensive metabolic panel - CBC auto differential Morbidly obese (HCC) Comments: Improved continue low-carb and low-fat meals and walk as tolerated Chronic obstructive pulmonary disease, unspecified COPD type (HCC) Comments: Stable after prednisone, continue Spiriva Orders: - DME Order for hospital bed Longstanding persistent atrial fibrillation (HCC) Comments: Improved on diltiazem, metoprolol, and Eliquis Depression, unspecified depression type Comments: Improved, continue Zoloft, encouragement given Other orders - furosemide (Lasix) 40 MG tablet; Take 1 tablet (40 mg) by mouth 2 times daily. Subjective: Patient ID: Alta Baker is a 74 y.o. female. 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 Sent home on different doses of Lasix, metoprolol, lisinopril, and diltiazem was added. Also given prednisone burst with improvement. She is feeling much better. Denies shortness of breath chest pain or palpitations. No fever or purulent phlegm. Taking Spiriva routinely. Interestingly repeat echocardiogram showed LV ejection fraction of only 40% and it was normal on April's exam with summa. Concerned about ongoing normochromic normocytic anemia. Labs are confusing. Presenting hemoglobin was quite normal but discharged hemoglobin was down to 8.7. Of note she had persistent anemia since last January when she apparently had vaginal bleeding. No recurrence since February but she has not undergone [employer] checkup for appropriate workup. Review of Systems patient states she is feeling better. Very happy at home. Zoloft is beneficial. Denies phlegm or fever pleurisy. Denies sense of palpitations, orthopnea and lower extremity edema is much better. She denies heartburn or early satiety. No abdominal pain. No melena or blood or mucus. No constipation or diarrhea. No dysuria hematuria. She denies recurrent vaginal bleeding Allergies Allergen Reactions Bee Venom Other Honey Bee Venom Morphine Other Oxycodone Other reaction(s): Mental Status Change Did not like the feeling Statins Other Muscle aches Tetanus Toxoids Swelling Other reaction(s): Unknown Current Outpatient Medications on File Prior to Visit Medication Sig Dispense Refill acetaminophen (Tylenol 8 Hour) 650 MG ER tablet Take 650 mg by mouth every 8 hours as needed for mild pain (1-3). Do not crush, chew, or split. albuterol (2.5 MG/3ML) 0.083% nebulizer solution Take 3 mL (2.5 mg) by nebulization every 6 hours as needed for wheezing. 75 mL 2 albuterol 108 (90 Base) MCG/ACT inhaler INHALE TWO PUFFS BY MOUTH EVERY 4 HOURS NEEDED FOR WHEEZING OR FOR SHORTNESS OF BREATH (BULK) 6.7 g 1 apixaban (Eliquis) 5 MG tablet TAKE 1 TABLET BY MOUTH 2 TIMES DAILY 180 tablet 3 atorvastatin (Lipitor) 10 MG tablet TAKE ONE TABLET BY MOUTH DAILY AT 5PM 90 tablet 1 calcitonin, salmon, (Miacalcin) 200 UNIT/ACT nasal spray Administer 1 spray into one nostril daily. Calcium Carbonate-Vitamin D (CALCIUM-VITAMIN D PO) Take by mouth. cetirizine (ZyrTEC) 10 MG tablet Take 10 mg by mouth Nightly. dilTIAZem (Cardizem) 60 MG immediate release tablet Take 60 mg by mouth every 8 hours. Docusate Sodium (DSS) 100 MG capsule 100 mg. folic acid (Folvite) 1 MG tablet Take 1 tablet (1 mg) by mouth daily. 30 tablet 2 metoprolol tartrate (Lopressor) 25 MG tablet Take 75 mg by mouth 2 times daily. miconazole (Micotin) 2 % powder Apply topically 2 times daily. nystatin (Mycostatin) 634284 UNIT/GM powder Apply topically 3 times daily. 60 g 2 sertraline (Zoloft) 50 MG tablet TAKE 1 TABLET BY MOUTH EVERY DAY IN EARLY EVENING 90 tablet 1 tiotropium (Spiriva Respimat) 2.5 MCG/ACT inhaler Inhale 2 puffs daily. 4 g 11 [DISCONTINUED] furosemide (Lasix) 40 MG tablet Take 1 tablet (40 mg) by mouth daily. (Patient taking differently: Take 40 mg by mouth 2 times daily.) 30 tablet 11 lisinopril 20 MG tablet Take 20 mg by mouth daily. [DISCONTINUED] metoprolol tartrate (Lopressor) 50 MG tablet Take 2 tablets (100 mg) by mouth 2 times daily. [DISCONTINUED] mometasone-formoterol (Dulera 100) 100-5 MCG/ACT inhaler Inhale 2 puffs 2 times daily. Rinse mouth with water after use to reduce aftertaste and incidence of candidiasis. Do not swallow. (Patient not taking: Reported on 06/19/2024) 13 g 11 [DISCONTINUED] ondansetron (Zofran) 4 MG tablet Take 1 tablet (4 mg) by mouth every 12 hours as needed for nausea or vomiting for up to 20 doses. 20 tablet 0 [DISCONTINUED] pantoprazole (ProtoNix) 40 MG EC tablet Take 1 tablet (40 mg) by mouth every morning (before breakfast) for 6 days. Do not crush, chew, or split. Do not start before May 06, 2024. 6 tablet 0 No current facility-administered medications on file prior to visit. Patient Active Problem List Diagnosis Hypercholesteremia 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) Asthma Venous insufficiency History of pulmonary embolism Anticoagulant long-term use Atrial fibrillation (HCC) Mitral regurgitation Morbidly obese (HCC) Allergic rhinitis Pulmonary HTN (HCC) CHRISTIANNE on CPAP Depression COPD (chronic obstructive pulmonary disease) (HCC) Cor pulmonale, chronic (HCC) Major depressive disorder in remission (CMS/HCC) (HCC) Essential hypertension Gallstone Nonrheumatic tricuspid valve regurgitation Nonrheumatic aortic valve insufficiency Social History Tobacco Use Smoking status: Never Smokeless tobacco: Never Substance Use Topics Alcohol use: No Past Surgical History: Procedure Laterality Date APPENDECTOMY 1970 BREAST BIOPSY Right 07/24/2021 CAPSULOTOMY, HAND 2006 MARTY/DCC 08/22 also and 03/29 as well. CAPSULOTOMY, HAND 2014 x8 CATARACT EXTRACTION Bilateral 2013 COLONOSCOPY 03/2017 divert ds - Turowski- due 2027 OVARIAN CYST REMOVAL Right 1984 TUBAL LIGATION 1979 Family History Problem Relation Name Age of Onset Lung cancer Mother age 60, smoker High Blood Pressure Father Stroke Father age 62 Coronary artery disease Sister Midge Kidney disease Sister Midge ? etiol, age 79, in 10/01 Coronary artery disease Sister Khloe 65 CABG but age 90 No Known Problems Brother Gene Asthma Brother Bill No Known Problems Maternal Grandmother No Known Problems Maternal Grandfather Breast cancer Paternal Grandmother No Known Problems Paternal Grandfather age 100 Objective: BP 126/78 Pulse 92 Temp 36.4 C (97.6 F) (Temporal) Resp 16 Ht 4' 11 (1.499 m) Wt 199 lb 9.6 oz (90.5 kg) SpO2 96% BMI 40.31 kg/m Physical Exam Vital signs are stable. Pleasant alert and cooperative. Off oxygen. Of note she uses O2 at home. Nonicteric. Moist mucous membranes. Clear oropharynx. No JVD. No carotid bruits. Heart is slightly irregular. No new murmurs or gallops. Lungs are diminished in both bases but without wheezes rhonchi or egophony. Abdomen obese nontender without pain hepatosplenomegaly masses or ascites. Extremities have trace ankle edema but improved. Reviewed past CT of the abdomen, a couple echocardiograms, EKGs, cardiology consultations and recent hospital records again. documented in this encounter [facility] 06-19-2024 Miscellaneous Notes Addended by: NESTOR MENDOZA on: 06/21/2024 11:16 AM Modules accepted: Orders documented in this encounter [facility] 06-19-2024 Note Addended by: NESTOR MENDOZA on: 06/21/2024 11:16 AM Modules accepted: Orders [facility] 06-05-2024 Discharge summary Note Date/Time June 05, 2024 12:53pm [facility] Medical Records Department [address] [place] [address] Discharge Summary 06/05/24 1242 MR#: [id number] Acct: [id number] Name: ALTA BAKER Rep #:[id number] : 1950 74 From: John Paul Will DO PCP: Dr. Kory Ibarra DO Status:[facility] IN Location: [place] [address] Providers Date of Admission: 06/02/24 Primary Care Physician: Dr. Kory Ibarra DO Reason For Visit: COPD VS CHF EXACERBATION Diagnosis Discharge Diagnosis (1) Acute heart failure with preserved ejection fraction (HFpEF): Status: Acute Code(s): I50.31 - Acute diastolic (congestive) heart failure Plan: acute HFrEF. EF 40% on echo improved from 2017 (20-25%) on IV furosemide. Change back to PO. Continue lisinopril 10 home oxygen evaluation (2) Atrial fibrillation with RVR: Status: Acute Code(s): I48.91 - Unspecified atrial fibrillation Plan: metoprolol decreased from 100 to 75mg BID. Stable on diltiazem Q6h. Follow up with cardiology. Plan COPD exacerbation: methylpred and BDs. Change to PO prednisone. Afib: anticoagulated w apixaban. continue metoprolol VTE prophylaxis: not indicated as already on apixaban. DC home. Medications at Discharge Home Medications furosemide 40 mg tablet 40 mg PO BID diuretic 10/27/13 lisinopril 10 mg tablet 20 mg PO DAILY blood pressure 01/24/16 atorvastatin 10 mg tablet 10 mg PO QHS cholesterol 07/14/16 apixaban 5 mg tablet (Eliquis) 5 mg PO BID blood thinner 01/18/22 albuterol sulfate 0.63 mg/3 mL solution for nebulization 0.63 mg (3 mL) inhalation Q4H PRN shortness of breath or wheezing #75 mL 01/22/22 guaifenesin 1,200 mg tablet, extended release 12 hr (Mucus Relief ER) 1,200 mg PO BID cough #10 tabs 01/22/22 folic acid 1 mg tablet 1 mg PO DAILY see PCP 05/25/24 sertraline 50 mg tablet 50 mg PO QHS mental health 05/25/24 docusate sodium 100 mg capsule (Col-Rite) 100 mg PO BID PRN constipation 06/03/24 albuterol sulfate 90 mcg/actuation aerosol inhaler 1 inh inhalation Q6H #6.7 grams 06/05/24 diltiazem HCl 60 mg tablet 60 mg PO Q8 #120 tabs 06/05/24 metoprolol tartrate 25 mg tablet 75 mg (3 x 25 mg) PO BID #180 tabs 06/05/24 prednisone 20 mg tablet 40 mg (2 x 20 mg) PO DAILY #10 tabs 06/05/24 tiotropium bromide 18 mcg capsule with inhalation device (Spiriva with HandiHaler) 1 cap inhalation DAILY #30 inhalations 06/05/24 Hospital Course Operations None Procedures 2-D Echocardiogram Summary of Care Provided Minutes Spent on Discharge: 32 Weight / BMI Weight Weight: 98.1 kg Body Mass Index (BMI) 43.7 ABG / Lab / Microbiology Data 06/05/24 05:53 06/05/24 05:53 Laboratory: Laboratory Results - last 24 hr 06/05/24 05:53: WBC 12.7 H, RBC 2.98 L, Hgb 8.7 L, Hct 29.4 L, MCV 98.7, MCH 29.2, MCHC 29.6 L, RDW Std Deviation 62.4 H, RDW Coeff of Giles 17.2 H, Plt Count 90 L, MPV 14.3 H, Immature Gran % (Auto) 1.900 H, Neut % (Auto) 84.3 H, Lymph % (Auto) 4.6 L, [place] % (Auto) 9.0, Eos % (Auto) 0.0, Baso % (Auto) 0.2, Absolute Neuts (auto) 10.7 H, Absolute Lymphs (auto) 0.59 L, Nucleated RBC % 0.2, Sodium 141, Potassium 3.9, Chloride 101, Carbon Dioxide 29.0, Anion Gap 11, BUN 37 H, Creatinine 0.84, Estim Creat Clear Calc 62.66, Est GFR (MDRD) Non-Af 74, BUN/Creatinine Ratio 43.8 H, Glucose 161 H, Calcium 9.7 Microbiology: Microbiology 06/02/24 11:37 Blood Culture (Wb) - Left Hand Blood Culture - Preliminary No growth in 48 hours. 06/02/24 11:37 Blood Culture (Wb) - Right Wrist Blood Culture - Preliminary No growth in 48 hours. 06/02/24 15:44 Mucosa - Nose Respiratory Panel (PCR) - Final 06/02/24 11:36 Mucosa - Nose SARS-CoV-2, Influenza & RSV (PCR) - Final D/C Instructions Discharge Diet: 2000 mg Sodium Diet and - (1.5 liters fluid per day. ) DC O2, CPAP, BIPAP Needs PSN CPAP & BiPAP: BiPAP & CPAP Settings per PSN Mode AVAPS 06/05/24 00:00 Bipap Delivery Device Face Mask 06/05/24 00:00 BiPAP Expiratory Pressure 8 06/05/24 00:00 BiPAP Rate 12 06/05/24 00:00 Fraction of Inspired Oxygen ( 30 06/05/24 00:00 FIO2) Home O2 Discharge instructions: Yes Type of respiratory needs?: Oxygen Oxygen frequency: Continuous Continuous oxygen liters per minute: 2 DC home with Oxygen: Yes Home O2 MD Review: I have reviewed the oxygen testing, and the patient qualifies for home oxygen equipment and portability. The patient is mobile in the home and the community. Meaningful Use Info Meaningful Use Meaningful Use Diagnoses (Choose all that apply): CHF CHF JAQUELIN/ARB ordered at discharge?: Yes Documented LVEF (%): 40 Ischemic Stroke Statin Dosing Therapy Reference: STATIN DOSE THERAPY REFERENCE: * Patients > 75 years receive moderate or high dose statin therapy. * Patients 75 years or YOUNGER should receive HIGH intensity statin dose unless contraindicated. You will be required to document reason for non-treatment if statin daily dose does not meet guidelines. HIGH DOSE STATIN THERAPY DAILY Atorvastatin > than or = to 40 mg Rosuvastatin > than or = to 20 mg Amlodipine + Atorvastatin > than or = to 2.5/40 mg Ezetimibe + Simvastatin 10/80 mg Simvastatin 80mg Discharge Plan Admission Admit Date/Time: 06/02/24 13:30 Primary Reason for Your Visit: CHF exacerbation. COPD exacerbation. Attending Provider: John Paul Will Primary Care Provider: Kory Ibarra Consulting Providers: Wilbert Umanzor; Raul Helton Instructions Patient Instructions: Heart Failure Flare Up Signs, Heart Failure: Tracking Your Weight, Heart Failure Make Changes Diet, Heart Failure Dc, Heart Failure Care Discharge Orders/Prescriptions Prescriptions: New diltiazem HCl 60 mg Tablet 60 mg PO Q8 Qty: 120 0RF metoprolol tartrate 25 mg Tablet 75 mg PO BID Qty: 180 0RF tiotropium bromide [Spiriva with HandiHaler] 18 mcg capsule, w/inhalation device 1 cap inhalation DAILY Qty: 30 0RF Rx Instructions: puncture 1 cap using device; one dose = 2 inhalations prednisone 20 mg tablet 40 mg PO DAILY Qty: 10 0RF albuterol sulfate 90 mcg/actuation HFA aerosol inhaler 1 inh inhalation Q6H Qty: 6.7 0RF Continued folic acid 1 mg tablet 1 mg PO DAILY furosemide 40 MG tablet 40 mg PO BID Patient Comments: Water pill sertraline 50 mg tablet 50 mg PO QHS Patient Comments: Anti-depressant/anxiety lisinopril 10 MG tablet 20 mg PO DAILY Patient Comments: BLOOD PRESSURE/HEART atorvastatin 10 MG tablet 10 mg PO QHS Patient Comments: CHOLESTEROL Eliquis 5 mg tablet 5 mg PO BID guaifenesin [Mucus Relief ER] 1,200 mg Tablet Extended Release 12hr 1,200 mg PO BID Qty: 10 0RF albuterol sulfate 0.63 mg/3 mL solution for nebulization 0.63 mg inhalation Q4H PRN (Reason: shortness of breath or wheezing) Qty: 75 0RF docusate sodium [Col-Rite] 100 mg capsule 100 mg PO BID PRN (Reason: constipation) Discontinued amoxicillin-pot clavulanate 875-125 mg tablet 1 tab PO Q12H 10 Days Qty: 20 0RF potassium chloride [Klor-Con M20] 20 MEQ tablet 20 meq PO DAILY Patient Comments: SUPPLEMENT digoxin [Digox] 125 MCG tablet 125 mcg PO DAILY Patient Comments: HEART metoprolol tartrate 50 MG tablet 100 mg PO BID Patient Comments: Heart rate/blood pressure amoxicillin-pot clavulanate 875-125 mg tablet 1 tab PO BID Qty: 14 0RF Referrals / Follow Up: Kory Ibarra DO [Primary Care Provider] - Sheets,DO Davis [Non-Staff] - Charges/Coding Visit Charges Inpatient E&M: 51029 Disch Hosp >30min 06/05/24 1253 <Electronically signed by John Paul Will DO> Cosigner Signature (if applicable): CC: Dr. John Paul Will DO; Dr. Kory Ibarra DO~ Signed [facility] Work Phone: [phone]) 875-139603-24-2025 Progress note Author John Paul Will [facility] Note Date/Time June 05, 2024 12: 42pm [facility] Medical Records Department [address] [place] [address] Progress Note - Hospitalist 06/05/24918 MR#: [id number] Acct: [id number] Name: ALTA BAKER Rep #:[id number] : 1950 74 From: John Paul Will DO PCP: Dr. Kory Ibarra DO Status:AD M IN Location: [facility] [id number] Reason for Visit Reason for Visit: Diagnoses Unspecified atrial fibrillation (06/02/24) Acute diastolic (congestive) heart failure (06/02/24) Chronic obstructive pulmonary disease with (acute) exacerbation (06/02/24) Subjective Subjective Feeling good. Breathing better overall. Objective Data Objective Data Vital Signs: Vital Signs Temp Pulse Resp BP Pulse Ox O2 Del Method O2 Flow Rate 36.4 C L 82 18 119/57 L 93 Nasal Cannula 2 06/05/24 04:16 06/05/24 06:44 06/05/24 06:44 06/05/24 04:16 06/05/24 06:44 06/05/24 06:44 06/05/24 06:44 FiO2 30 06/05/24 00:00 Oxygen Flow Rate (L/min) 2 Oxygen Delivery Method Nasal Cannula Weight: 98.1 kg Body Mass Index (BMI) 43.7 Intake & Output: Intake and Output for Last 24 Hours 06/03/24 06/04/24 06/05/24 23:59 23:59 23:59 Intake Total 1180 / 1420 600 / 600 Output Total 1550 / 2250 1150 / 1150 500 / 500 Balance -370 / -830 -550 / -550 -500 / -500 Lab / Micro Data 06/05/24 05:53 06/05/24 05:53 Labs: Laboratory Results - last 24 hr 06/05/24 05:53: WBC 12.7 H, RBC 2.98 L, Hgb 8.7 L, Hct 29.4 L, MCV 98.7, MCH 29.2, MCHC 29.6 L, RDW Std Deviation 62.4 H, RDW Coeff of Giles 17.2 H, Plt Count 90 L, MPV 14.3 H, Immature Gran % (Auto) 1.900 H, Neut % (Auto) 84.3 H, Lymph % (Auto) 4.6 L, [place] % (Auto) 9.0, Eos % (Auto) 0.0, Baso % (Auto) 0.2, Absolute Neuts (auto) 10.7 H, Absolute Lymphs (auto) 0.59 L, Nucleated RBC % 0.2, Sodium 141, Potassium 3.9, Chloride 101, Carbon Dioxide 29.0, Anion Gap 11, BUN 37 H, Creatinine 0.84, Estim Creat Clear Calc 62.66, Est GFR (MDRD) Non-Af 74, BUN/Creatinine Ratio 43.8 H, Glucose 161 H, Calcium 9.7 Micro: Microbiology 06/02/24 11:37 Blood Culture (Wb) - Left Hand Blood Culture - Preliminary No growth in 48 hours. 06/02/24 11:37 Blood Culture (Wb) - Right Wrist Blood Culture - Preliminary No growth in 48 hours. 06/02/24 15:44 Mucosa - Nose Respiratory Panel (PCR) - Final 06/02/24 11:36 Mucosa - Nose SARS-CoV-2, Influenza & RSV (PCR) - Final Physical Exam Const alert and no apparent distress Resp normal respiratory effort, no retractions, no use of accessory muscles and clearto auscultation bilaterally Cardio regular rate, regular rhythm, S1 normal heart sound and S2 normal heart sound GI normal to inspection, nondistended, normoactive bowel sounds, soft to palpation,non-tender and non-distended Extremity normal to inspection and no clubbing, cyanosis or edema Neuro Sensorium / Orientation: awake and alert Assessment & Plan Assessment/Plan (1) Acute heart failure with preserved ejection fraction (HFpEF): PLAN: on IV furosemide. Continue lisinopril 10 home oxygen evaluation PLAN: Plan COPD exacerbation: methylpred and BDs. Afib: anticoagulated w apixaban. continue metoprolol VTE prophylaxis: not indicated as already on apixaban. DC home. 06/05/24 1242 <Electronically signed by John Paul Will DO> Cosigner Signature (if applicable): CC: ~ Signed [facility] Work Phone: [phone] 602-400503-24-2025 Discharge summary [facility] Medical Records Department [address] [place] [address] Discharge Summary 06/05/24 1242 MR#: [id number] Acct: [id number] Name: ALTA BAKER Rep #:[id number] : 1950 74 From: John Paul Will DO PCP: Dr. Kory Ibarra DO Status:[facility] IN Location: [place] [address] Providers Date of Admission: 06/02/24 Primary Care Physician: Dr. Kory Ibarra DO Reason For Visit: COPD VS CHF EXACERBATION Diagnosis Discharge Diagnosis (1) Acute heart failure with preserved ejection fraction (HFpEF): Status: Acute Code(s): I50.31 - Acute diastolic (congestive) heart failure Plan: acute HFrEF. EF 40% on echo improved from 2017 (20-25%) on IV furosemide. Change back to PO. Continue lisinopril 10 home oxygen evaluation (2) Atrial fibrillation with RVR: Status: Acute Code(s): I48.91 - Unspecified atrial fibrillation Plan: metoprolol decreased from 100 to 75mg BID. Stable on diltiazem Q6h. Follow up with cardiology. Plan COPD exacerbation: methylpred and BDs. Change to PO prednisone. Afib: anticoagulated w apixaban. continue metoprolol VTE prophylaxis: not indicated as already on apixaban. DC home. Medications at Discharge Home Medications furosemide 40 mg tablet 40 mg PO BID diuretic 10/27/13 lisinopril 10 mg tablet 20 mg PO DAILY blood pressure 01/24/16 atorvastatin 10 mg tablet 10 mg PO QHS cholesterol 07/14/16 apixaban 5 mg tablet (Eliquis) 5 mg PO BID blood thinner 01/18/22 albuterol sulfate 0.63 mg/3 mL solution for nebulization 0.63 mg (3 mL) inhalation Q4H PRN shortness of breath or wheezing #75 mL 01/22/22 guaifenesin 1,200 mg tablet, extended release 12 hr (Mucus Relief ER) 1,200 mg PO BID cough #10 tabs 01/22/22 folic acid 1 mg tablet 1 mg PO DAILY see PCP 05/25/24 sertraline 50 mg tablet 50 mg PO QHS mental health 05/25/24 docusate sodium 100 mg capsule (Col-Rite) 100 mg PO BID PRN constipation 06/03/24 albuterol sulfate 90 mcg/actuation aerosol inhaler 1 inh inhalation Q6H #6.7 grams 06/05/24 diltiazem HCl 60 mg tablet 60 mg PO Q8 #120 tabs 06/05/24 metoprolol tartrate 25 mg tablet 75 mg (3 x 25 mg) PO BID #180 tabs 06/05/24 prednisone 20 mg tablet 40 mg (2 x 20 mg) PO DAILY #10 tabs 06/05/24 tiotropium bromide 18 mcg capsule with inhalation device (Spiriva with HandiHaler) 1 cap inhalationDAILY #30 inhalations 06/05/24 Hospital Course Operations None Procedures 2-D Echocardiogram Summary of Care Provided Minutes Spent on Discharge: 32 Weight / BMI Weight Weight: 98.1 kg Body Mass Index (BMI) 43.7 ABG / Lab / Microbiology Data 06/05/24 05:53 06/05/24 05:53 Laboratory: Laboratory Results - last 24 hr 06/05/24 05:53: WBC 12.7 H, RBC 2.98 L, Hgb 8.7 L, Hct 29.4 L, MCV 98.7, MCH 29.2, MCHC 29.6 L, RDWStd Deviation 62.4 H, RDW Coeff of Giles 17.2 H, Plt Count 90 L, MPV 14.3 H, Immature Gran % (Auto) 1.900 H, Neut % (Auto) 84.3 H, Lymph % (Auto) 4.6 L, [place] % (Auto) 9.0, Eos % (Auto) 0.0, Baso % (Auto) 0.2, Absolute Neuts (auto) 10.7 H, Absolute Lymphs (auto) 0.59 L, Nucleated RBC % 0.2, Sodium 141, Potassium 3.9, Chloride 101, Carbon Dioxide 29.0, Anion Gap 11, BUN 37 H, Creatinine 0.84, Estim Creat Clear Calc 62.66, Est GFR (MDRD) Non-Af 74, BUN/Creatinine Ratio 43.8 H, Glucose 161 H, Calcium9.7 Microbiology: Microbiology 06/02/24 11:37 Blood Culture (Wb) - Left Hand Blood Culture - Preliminary No growth in 48 hours. 06/02/24 11:37 Blood Culture (Wb) - Right Wrist Blood Culture - Preliminary No growth in 48 hours. 06/02/24 15:44 Mucosa - Nose Respiratory Panel (PCR) - Final 06/02/24 11:36 Mucosa - Nose SARS-CoV-2, Influenza & RSV (PCR) - Final D/C Instructions Discharge Diet: 2000 mg Sodium Diet and - (1.5 liters fluid per day. ) DC O2, CPAP, BIPAP Needs PSN CPAP & BiPAP: BiPAP & CPAP Settings per PSN Mode AVAPS 06/05/24 00:00 Bipap Delivery Device Face Mask 06/05/24 00:00 BiPAP Expiratory Pressure 8 06/05/24 00:00 BiPAP Rate 12 06/05/24 00:00 Fraction of Inspired Oxygen ( 30 06/05/24 00:00 FIO2) Home O2 Discharge instructions: Yes Type of respiratory needs?: Oxygen Oxygen frequency: ContinuousContinuous oxygen liters per minute: 2 DC home with Oxygen: Yes Home O2 MD Review: I have reviewed the oxygen testing, and the patient qualifies for home oxygen equipment and portability. The patient is mobile in the home and the community. Meaningful Use Info Meaningful Use Meaningful Use Diagnoses (Choose all that apply): CHF CHF JAQUELIN/ARB ordered at discharge?: Yes Documented LVEF (%): 40 Ischemic Stroke Statin Dosing Therapy Reference: STATIN DOSE THERAPY REFERENCE: * Patients > 75 years receive moderate or high dose statin therapy. * Patients 75 years or YOUNGER should receive HIGH intensity statin dose unless contraindicated. You will be required to document reason for non-treatment if statin daily dose does not meet guidelines. HIGH DOSE STATIN THERAPY DAILY Atorvastatin > than or = to 40 mg Rosuvastatin > than or = to 20 mg Amlodipine + Atorvastatin > than or = to 2.5/40 mg Ezetimibe + Simvastatin 10/80 mg Simvastatin 80mg Discharge Plan Admission Admit Date/Time: 06/02/24 13:30 Primary Reason for Your Visit: CHF exacerbation. COPD exacerbation. Attending Provider: John Paul Will Primary Care Provider: Kory Ibarra Consulting Providers: Wilbert Umanzor; Raul Helton Instructions Patient Instructions: Heart Failure Flare Up Signs, Heart Failure: Tracking Your Weight, Heart Failure Make Changes Diet, Heart Failure Dc, Heart Failure Care Discharge Orders/Prescriptions Prescriptions: New diltiazem HCl 60 mg Tablet 60 mg PO Q8 Qty: 120 0RF metoprolol tartrate 25 mg Tablet 75 mg PO BID Qty: 180 0RF tiotropium bromide [Spiriva with HandiHaler] 18 mcg capsule, w/inhalation device 1 cap inhalation DAILY Qty: 30 0RF Rx Instructions: puncture 1 cap using device; one dose = 2 inhalations prednisone 20 mg tablet 40 mg PO DAILY Qty: 10 0RF albuterol sulfate 90 mcg/actuation HFA aerosol inhaler 1 inh inhalation Q6H Qty: 6.7 0RF Continued folic acid 1 mg tablet 1 mg PO DAILY furosemide 40 MG tablet 40 mg PO BID Patient Comments: Water pill sertraline 50 mg tablet 50 mg PO QHS Patient Comments: Anti-depressant/anxiety lisinopril 10 MG tablet 20 mg PO DAILY Patient Comments: BLOOD PRESSURE/HEART atorvastatin 10 MG tablet 10 mg PO QHS Patient Comments: CHOLESTEROL Eliquis 5 mg tablet 5 mg PO BID guaifenesin [Mucus Relief ER] 1,200 mg Tablet Extended Release 12hr 1,200 mg PO BID Qty: 10 0RF albuterol sulfate 0.63 mg/3 mL solution for nebulization 0.63 mg inhalation Q4H PRN (Reason: shortness of breath or wheezing) Qty: 75 0RF docusate sodium [Col-Rite] 100 mg capsule 100 mg PO BID PRN (Reason: constipation) Discontinued amoxicillin-pot clavulanate 875-125 mg tablet 1 tab PO Q12H 10 Days Qty: 20 0RF potassium chloride [Klor-Con M20] 20 MEQ tablet 20 meq PO DAILY Patient Comments: SUPPLEMENT digoxin [Digox] 125 MCG tablet 125 mcg PO DAILY Patient Comments: HEART metoprolol tartrate 50 MG tablet 100 mg PO BID Patient Comments: Heart rate/blood pressure amoxicillin-pot clavulanate 875-125 mg tablet 1 tab PO BID Qty: 14 0RF Referrals / Follow Up: Kory Ibarra DO [Primary Care Provider] - Maria Victoria,DO Davis [Non-Staff] - Charges/Coding Visit Charges Inpatient E&M: 57658 Disch Hosp >30min 06/05/24 1253 Cosigner Signature (if applicable): CC: Dr. John Paul Will DO; Dr. Kory Ibarra DO~ Signed [facility]03-24-2025 [facility] Medical Records Department [address] [place] [id number] Discharge Summary 06/05/24 1242 MR#: [id number] Acct: [id number] Name: ALTA BAKER Rep #: [id number] : 1950 74 From: John Paul Will DO PCP: Dr. Kory Ibarra DO Status:ADM IN Location: [place] [address] Providers Date of Admission: 06/02/24 Primary Care Physician: Dr. Kory Ibarra DO Reason For Visit: COPD VS CHF EXACERBATION Diagnosis Discharge Diagnosis (1) Acute heart failure with preserved ejection fraction (HFpEF): Status: Acute Code(s): I50.31 - Acute diastolic (congestive) heart failure Plan: acute HFrEF. EF 40% on echo improved from 2017 (20-25%) on IV furosemide. Change back to PO. Continue lisinopril 10 home oxygen evaluation (2) Atrial fibrillation with RVR: Status: Acute Code(s): I48.91 - Unspecified atrial fibrillation Plan: metoprolol decreased from 100 to 75mg BID. Stable on diltiazem Q6h. Follow up with cardiology. Plan COPD exacerbation: methylpred and BDs. Change to PO prednisone. Afib: anticoagulated w apixaban. continue metoprolol VTE prophylaxis: not indicated as already on apixaban. DC home. Medications at Discharge Home Medications furosemide 40 mg tablet 40 mg PO BID diuretic 10/27/13 lisinopril 10 mg tablet 20 mg PO DAILY blood pressure 01/24/16 atorvastatin 10 mg tablet 10 mg PO QHS cholesterol 07/14/16 apixaban 5 mg tablet (Eliquis) 5 mg PO BID blood thinner 01/18/22 albuterol sulfate 0.63 mg/3 mL solution for nebulization 0.63 mg (3 mL) inhalation Q4H PRN shortness of breath or wheezing #75 mL 01/22/22 guaifenesin 1,200 mg tablet, extended release 12 hr (Mucus Relief ER) 1,200 mg PO BID cough #10 tabs 01/22/22 folic acid 1 mg tablet 1 mg PO DAILY see PCP 05/25/24 sertraline 50 mg tablet 50 mg PO QHS mental health 05/25/24 docusate sodium 100 mg capsule (Col-Rite) 100 mg PO BID PRN constipation 06/03/24 albuterol sulfate 90 mcg/actuation aerosol inhaler 1 inh inhalation Q6H #6.7 grams 06/05/24 diltiazem HCl 60 mg tablet 60 mg PO Q8 #120 tabs 06/05/24 metoprolol tartrate 25 mg tablet 75 mg (3 x 25 mg) PO BID #180 tabs 06/05/24 prednisone 20 mg tablet 40 mg (2 x 20 mg) PO DAILY #10 tabs 06/05/24 tiotropium bromide 18 mcg capsule with inhalation device (Spiriva with HandiHaler) 1 cap inhalation DAILY #30 inhalations 06/05/24 Hospital Course Operations None Procedures 2-D Echocardiogram Summary of Care Provided Minutes Spent on Discharge: 32 Weight / BMI Weight Weight: 98.1 kg Body Mass Index (BMI) 43.7 ABG / Lab / Microbiology Data 06/05/24 05:53 06/05/24 05:53 Laboratory: Laboratory Results - last 24 hr 06/05/24 05:53: WBC 12.7 H, RBC 2.98 L, Hgb 8.7 L, Hct 29.4 L, MCV 98.7, MCH 29.2, MCHC 29.6 L, RDW Std Deviation 62.4 H, RDW Coeff of Giles 17.2 H, Plt Count 90 L, MPV 14.3 H, Immature Gran % (Auto) 1.900 H, Neut % (Auto) 84.3 H, Lymph % (Auto) 4.6 L, [place] % (Auto) 9.0, Eos % (Auto) 0.0, Baso % (Auto) 0.2, Absolute Neuts (auto) 10.7 H, Absolute Lymphs (auto) 0.59 L, Nucleated RBC % 0.2, Sodium 141, Potassium 3.9, Chloride 101, Carbon Dioxide 29.0, Anion Gap 11, BUN 37 H, Creatinine 0.84, Estim Creat Clear Calc 62.66, Est GFR (MDRD) Non-Af 74, BUN/Creatinine Ratio 43.8 H, Glucose 161 H, Calcium 9.7 Microbiology: Microbiology 06/02/24 11:37 Blood Culture (Wb) - Left Hand Blood Culture - Preliminary No growth in 48 hours. 06/02/24 11:37 Blood Culture (Wb) - Right Wrist Blood Culture - Preliminary No growth in 48 hours. 06/02/24 15:44 Mucosa - Nose Respiratory Panel (PCR) - Final 06/02/24 11:36 Mucosa - Nose SARS-CoV-2, Influenza RSV (PCR) - Final D/C Instructions Discharge Diet: 2000 mg Sodium Diet and - (1.5 liters fluid per day. ) DC O2, CPAP, BIPAP Needs PSN CPAP BiPAP: BiPAP CPAP Settings per PSN Mode AVAPS 06/05/24 00:00 Bipap Delivery Device Face Mask 06/05/24 00:00 BiPAP Expiratory Pressure 8 06/05/24 00:00 BiPAP Rate 12 06/05/24 00:00 Fraction of Inspired Oxygen ( 30 06/05/24 00:00 FIO2) Home O2 Discharge instructions: Yes Type of respiratory needs?: Oxygen Oxygen frequency: Continuous Continuous oxygen liters per minute: 2 DC home with Oxygen: Yes Home O2 MD Review: I have reviewed the oxygen testing, and the patient qualifies for home oxygen equipment and portability. The patient is mobile in the home and the community. Meaningful Use Info Meaningful Use Meaningful Use Diagnoses (Choose all that apply): CHF CHF JAQUELIN/ARB ordered at discharge?: Yes Documented LVEF (%): 40 Ischemic Stroke Statin Dosing Therapy Reference: STATIN DOSE THERAPY REFERENCE: * Patients > 75 years receive moderate or high dose statin therapy. * Patients 75 years or YOUNGER should receive HIGH intensity statin dose unless contraindicated. You will (more content not included)...[facility]03-24-2025 Progress note [facility] Medical Records Department [address] [place] [address] Progress Note - Hospitalist 06/05/24 0919 MR#: [id number] Acct: [id number] Name: ALTA BAKER Rep #:[id number] : 1950 74 From: John Paul Will DO PCP: Dr. Kory Ibarra DO Status:AD M IN Location: [place] [address] Reason for Visit Reason for Visit: Diagnoses Unspecified atrial fibrillation (06/02/24) Acute diastolic (congestive) heart failure (06/02/24) Chronic obstructive pulmonary disease with (acute) exacerbation (06/02/24) Subjective Subjective Feeling good. Breathing better overall. Objective Data Objective Data Vital Signs: Vital Signs Temp Pulse Resp BP Pulse Ox O2 Del Method O2 Flow Rate 36.4 C L 82 18 119/57 L 93 Nasal Cannula 2 06/05/24 04:16 06/05/24 06:44 06/05/24 06:44 06/05/24 04:16 06/05/24 06:44 06/05/24 06:44 06/05/24 06:44 FiO2 30 06/05/24 00:00 Oxygen Flow Rate (L/min) 2 Oxygen Delivery Method Nasal Cannula Weight: 98.1 kg Body Mass Index (BMI) 43.7 Intake & Output: Intake and Output for Last 24 Hours 06/03/24 06/04/24 06/05/24 23:59 23:59 23:59 Intake Total 1180 / 1420 600 / 600 Output Total 1550 / 2250 1150 / 1150 500 / 500 Balance -370 / -830 -550 / -550 -500 / -500 Lab / Micro Data 06/05/24 05:53 06/05/24 05:53 Labs: Laboratory Results - last 24 hr 06/05/24 05:53: WBC 12.7 H, RBC 2.98 L, Hgb 8.7 L, Hct 29.4 L, MCV 98.7, MCH 29.2, MCHC 29.6 L, RDWStd Deviation 62.4 H, RDW Coeff of Giles 17.2 H, Plt Count 90 L, MPV 14.3 H, Immature Gran % (Auto) 1.900 H, Neut % (Auto) 84.3 H, Lymph % (Auto) 4.6 L, [place] % (Auto) 9.0, Eos % (Auto) 0.0, Baso % (Auto) 0.2, Absolute Neuts (auto) 10.7 H, Absolute Lymphs (auto) 0.59 L, Nucleated RBC % 0.2, Sodium 141, Potassium 3.9, Chloride 101, Carbon Dioxide 29.0, Anion Gap 11, BUN 37 H, Creatinine 0.84, Estim Creat Clear Calc 62.66, Est GFR (MDRD) Non-Af 74, BUN/Creatinine Ratio 43.8 H, Glucose 161 H, Calcium9.7 Micro: Microbiology 06/02/24 11:37 Blood Culture (Wb) - Left Hand Blood Culture - Preliminary No growth in 48 hours. 06/02/24 11:37 Blood Culture (Wb) - Right Wrist Blood Culture - Preliminary No growth in 48 hours. 06/02/24 15:44 Mucosa - Nose Respiratory Panel (PCR) - Final 06/02/24 11:36 Mucosa - Nose SARS-CoV-2, Influenza & RSV (PCR) - Final Physical Exam Const alert and no apparent distress Resp normal respiratory effort, no retractions, no use of accessory muscles and clearto auscultation bilaterally Cardio regular rate, regular rhythm, S1 normal heart sound and S2 normal heart sound GI normal to inspection, nondistended, normoactive bowel sounds, soft to palpation,non-tender and non-distended Extremity normal to inspection and no clubbing, cyanosis or edema Neuro Sensorium / Orientation: awake and alert Assessment & Plan Assessment/Plan (1) Acute heart failure with preserved ejection fraction (HFpEF): PLAN: on IV furosemide. Continue lisinopril 10 home oxygen evaluation PLAN: Plan COPD exacerbation: methylpred and BDs. Afib: anticoagulated w apixaban. continue metoprolol VTE prophylaxis: not indicated as already on apixaban. DC home. 06/05/24 1242 Cosigner Signature (if applicable): CC: ~ Signed [facility]03-23-2025 Progress note Author Raul Helton [facility] Note Date/Time June 04, 2024 1:5 7pm [facility] Medical Records Department [address] [place] [address] Progress Note - Hospitalist 06/04/24 1352 MR#: [id number] Acct: [id number] Name: ALTA BAKER Rep #:[id number] : 1950 74 From: Raul Garcia PCP: Dr. Kory Ibarra, DO Status:AD M IN Location: [place] [address] Reason for Visit Reason for Visit: Diagnoses Unspecified atrial fibrillation (06/02/24) Acute diastolic (congestive) heart failure (06/02/24) Chronic obstructive pulmonary disease with (acute) exacerbation (06/02/24) Objective Data Objective Data Vital Signs: Vital Signs Temp Pulse Resp BP Pulse Ox O2 Del Method O2 Flow Rate 97.5 F L 105 H 18 119/70 99 Nasal Cannula 2 06/04/24 13:23 06/04/24 13:23 06/04/24 13:23 06/04/24 13:23 06/04/24 13:23 06/04/24 13:23 06/04/24 13:23 FiO2 30 06/03/24 22:25 Oxygen Flow Rate (L/min) 2 Oxygen Delivery Method Nasal Cannula Weight: 216 lb 4.375 oz Body Mass Index (BMI) 43.7 Intake & Output: Intake and Output for Last 24 Hours 06/02/24 06/03/24 06/04/24 23:59 23:59 23:59 Intake Total 460 / 860 1180 / 1420 240 / 240 Output Total 1550 / 2250 850 / 850 Balance 460 / 360 -370 / -830 -610 / -610 Lab / Micro Data 06/04/24 05:20 06/04/24 05:20 Labs: Laboratory Results - last 24 hr 06/04/24 05:20: WBC 14.6 H, RBC 2.93 L, Hgb 8.7 L, Hct 29.1 L, MCV 99.3 H, MCH 29.7, MCHC 29.9 L, RDW Std Deviation 63.7 H, RDW Coeff of Giles 17.8 H, Plt Count 90 L, MPV 13.3 H, Immature Gran % (Auto) 2.200 H, Neut % (Auto) 84.0 H, Lymph % (Auto) 5.3 L, [place] % (Auto) 8.4, Eos % (Auto) 0.0, Baso % (Auto) 0.1, Absolute Neuts (auto) 12.3 H, Absolute Lymphs (auto) 0.77 L, Nucleated RBC % 0.3, Sodium 140, Potassium 4.1, Chloride 101, Carbon Dioxide 26.4, Anion Gap 13, BUN 37 H, Creatinine 0.94, Estim Creat Clear Calc 55.99, Est GFR (MDRD) Non-Af 64, BUN/Creatinine Ratio 39.9 H, Glucose 153 H, Calcium 9.6 Micro: Microbiology 06/02/24 11:37 Blood Culture (Wb) - Left Hand Blood Culture - Preliminary No growth in 48 hours. 06/02/24 11:37 Blood Culture (Wb) - Right Wrist Blood Culture - Preliminary No growth in 48 hours. 06/02/24 15:44 Mucosa - Nose Respiratory Panel (PCR) - Final 06/02/24 11:36 Mucosa - Nose SARS-CoV-2, Influenza & RSV (PCR) - Final Physical Exam Narrative Seen and examined. In the bed no shortness of breath was better yesterday but feels little worse today with dyspnea on exertion. Complain of chest congestion. She also has wheezing. Oxygen requirement remains same 2 L/min. Physical exam General: Alert, Oriented x3, Cooperative. Morbid obesity BMI 43.7 kg/m? HEENT: Atraumatic, PERRLA, EOMI, Normocephalic Oral: No Gingival or Mucosal Lesions/ Ulcerations Neck: Supple, No JVD, Negative Carotid Bruits Chest wall/Lungs: Air entry diminished in bilateral lung bases. Mild bilateralrhonchi and wheezing Cardiovascular: Irregular rate and rhythm, Normal S1, Normal S2, No M/G/R Abdomen: Bowel Sounds Present, Soft, Non Tender, Non-Distended : No dysuria. No renal angle tenderness. No suprapubic tenderness. Extremities: Mild pedal edema, Capillary Refill Less than 3 Seconds Skin: No rashes, No breakdown Musculoskeletal: No Tenderness to Palpation of Joints or Extremities Neurological: Cranial nerves II-XII grossly intact, DTR 2+/4. No acute focal neurological deficit. Psych/Mental Status: Normal Affect, Appropriate. Assessment & Plan Assessment/Plan (1) COPD exacerbation: (2) Acute heart failure with preserved ejection fraction (HFpEF): (3) Atrial fibrillation with RVR: PLAN: Plan Patient is a 74-year-old female who presented to [facility] ED on 06/02/2024 with worsening shortness of breath. Usually she is on 1.5 to 2 L ofO2 05/10 and uses CPAP at night with oxygen. History of COPD/asthma overlap. Nofever but cough, shortness of breath for 5 to 6 days. History of A-fib 1. Suspected predominant acute HFrEF exacerbation and pulmonary hypertension insetting of chronic hypoxic respiratory failure: Patient is being admitted in PCU. Chest x-ray initially reviewed and shows cardiomegaly and mild pulmonary venous congestion. 2D echo from 06/03 shows EF 40%, PASP 52 mmHg, mild global HKof LV, mild concentric LVH. No evidence of cardiac tamponade. Previous echo on05/07 showed EF 60% with moderate to severe pulmonary hypertension. It shows recovery from EF 20 to 25% in 2017. Lactic acid 3.7 probably due to hypoxia/decreased perfusion from heart failure. Repeat lactic acid normal. Troponin 9 and 23. Patient does not have chest pain or pressure. Increased troponin from CHF exacerbation. Cardiac demand Furosemide 40 mg IV twice daily. Heart failure core measures including intake and output, fluid restriction less than 1500 mL, daily weight monitoring, kidneyand electrolytes monitoring. 06/04: Continue IV Lasix. Electrolytes in normal range. I expect discharge tomorrow. 2. Possible mild COPD exacerbation with CHRISTIANNE on CPAP: Patient is being managed on scheduled bronchodilator, IV Solu-Medrol, Mucinex, incentive spirometry and Pep. Triple PCR for SARS-CoV-2, flu and RSV are negative. Respiratory panel negative 06/04: Mild leukocytosis due to IV Solu-Medrol otherwise does not seem has infection. No fever 3. Permanent A-fib with RVR on admission: ? Follows with Cardiology at [facility]. Was previously on digoxin but this was discontinued during recent hospitalization due to toxicity as noted below. Heart rate better but 108 216/min. Continue home Lopressor 75 mg twice daily and order IV Lopressor 5 mg every 6 hours as needed for heart rate greater than 130. Continue home Eliquis. 4. Recent prolonged hospitalization ? Recently hospitalized from 04/27-05/08 at [facility], see HPI for further details. The hospital course was notable for influenza A infection, MSSA pneumonia, NICK and digoxin toxicity. Patient was able to be discharged home without therapy on05/08. Chronic medical conditions: ? Class III obesity: BMI 43 on admit. Complicates hospital course, care and prognosis. ? Hypertension: Continue home Lopressor and lisinopril. ? Hyperlipidemia: Continue home statin. ? Depression: Continue home sertraline. DVT prophylaxis: Not indicated, on Eliquis CODE STATUS: DNR CCA, DNI Microbiology Past 72 Hours 06/02/24 11:37 Blood Culture (Wb) - Left Hand Blood Culture - Preliminary No growth in 48 hours. 06/02/24 11:37 Blood Culture (Wb) - Right Wrist Blood Culture - Preliminary No growth in 48 hours. 06/02/24 15:44 Mucosa - Nose Respiratory Panel (PCR) - Final 06/02/24 11:36 Mucosa - Nose SARS-CoV-2, Influenza & RSV (PCR) - Final Laboratory Results 06/04/24 05:20: WBC 14.6 H, RBC 2.93 L, Hgb 8.7 L, Hct 29.1 L, MCV 99.3 H, MCH 29.7, MCHC 29.9 L, RDW Std Deviation 63.7 H, RDW Coeff of Giles 17.8 H, Plt Count 90 L, MPV 13.3 H, Immature Gran % (Auto) 2.200 H, Neut % (Auto) 84.0 H, Lymph % (Auto) 5.3 L, [place] % (Auto) 8.4, Eos % (Auto) 0.0, Baso % (Auto) 0.1, Absolute Neuts (auto) 12.3 H, Absolute Lymphs (auto) 0.77 L, Nucleated RBC % 0.3, Sodium 140, Potassium 4.1, Chloride 101, Carbon Dioxide 26.4, Anion Gap 13, BUN 37 H, Creatinine 0.94, Estim Creat Clear Calc 55.99, Est GFR (MDRD) Non-Af 64, BUN/Creatinine Ratio 39.9 H, Glucose 153 H, Calcium 9.6 Clinical Impression(s) from Imaging Studies Chest X-Ray 06/02/24 11:07 IMPRESSION: Cardiomegaly with mild congestion. Reading Location: [facility] Echocardiogram 06/02/24 13:32 Interpretation Summary Normal LV size. The left ventricular ejection fraction is 40 %. Mild concentric left ventricular hypertrophy. There is mild global hypokinesis of the left ventricle. Pulmonary artery systolic pressure is 52 mmHg. There are no echocardiographic indications of cardiac tamponade. Compared to previous study, the left ventricular systolic function has improved.. Ordering Physician: Wilbert Umanzor Referring Physician: Kory Ibarra Performed By: Kasandra Whitten RDCS Charges/Coding Visit Charges Inpatient E&M: 98227 Subs Hosp L2 06/04/24 1357 <Electronically signed by Raul Helton MD> Cosigner Signature (if applicable): CC: ~ Signed [facility] Work Phone: [phone] Progress note [facility] Medical Records Department [address] [place] [address] Progress Note - Hospitalist 06/04/24 1352 MR#: [id number] Acct: [id number] Name: ALTA BAKER Rep #:[id number] : 1950 74 From: Raul Garcia PCP: Dr. Kory Ibarra, DO Status:AD M IN Location: [place] [address] Reason for Visit Reason for Visit: Diagnoses Unspecified atrial fibrillation (06/02/24) Acute diastolic (congestive) heart failure (06/02/24) Chronic obstructive pulmonary disease with (acute) exacerbation (06/02/24) Objective Data Objective Data Vital Signs: Vital Signs Temp Pulse Resp BP Pulse Ox O2 Del Method O2 Flow Rate 97.5 F L 105 H 18 119/70 99 Nasal Cannula 2 06/04/24 13:23 06/04/24 13:23 06/04/24 13:23 06/04/24 13:23 06/04/24 13:23 06/04/24 13:23 06/04/24 13:23 FiO2 30 06/03/24 22:25 Oxygen Flow Rate (L/min) 2 Oxygen Delivery Method Nasal Cannula Weight: 216 lb 4.375 oz Body Mass Index (BMI) 43.7 Intake & Output: Intake and Output for Last 24 Hours 06/02/24 06/03/24 06/04/24 23:59 23:59 23:59 Intake Total 460 / 860 1180 / 1420 240 / 240 Output Total 1550 / 2250 850 / 850 Balance 460 / 360 -370 / -830 -610 / -610 Lab / Micro Data 06/04/24 05:20 06/04/24 05:20 Labs: Laboratory Results - last 24 hr 06/04/24 05:20: WBC 14.6 H, RBC 2.93 L, Hgb 8.7 L, Hct 29.1 L, MCV 99.3 H, MCH 29.7, MCHC 29.9 L, RDW Std Deviation 63.7 H, RDW Coeff of Giles 17.8 H, Plt Count 90 L, MPV 13.3 H, Immature Gran % (Auto)2.200 H, Neut % (Auto) 84.0 H, Lymph % (Auto) 5.3 L, [place] % (Auto) 8.4, Eos % (Auto) 0.0, Baso % (Auto) 0.1, Absolute Neuts (auto) 12.3 H, Absolute Lymphs (auto) 0.77 L, Nucleated RBC % 0.3, Sodium 140, Potassium 4.1, Chloride 101, Carbon Dioxide 26.4, Anion Gap 13, BUN 37 H, Creatinine 0.94, EstimCreat Clear Calc 55.99, Est GFR (MDRD) Non-Af 64, BUN/Creatinine Ratio 39.9 H, Glucose 153 H, Calcium 9.6 Micro: Microbiology 06/02/24 11:37 Blood Culture (Wb) - Left Hand Blood Culture - Preliminary No growth in 48 hours. 06/02/24 11:37 Blood Culture (Wb) - Right Wrist Blood Culture - Preliminary No growth in 48 hours. 06/02/24 15:44 Mucosa - Nose Respiratory Panel (PCR) - Final 06/02/24 11:36 Mucosa - Nose SARS-CoV-2, Influenza & RSV (PCR) - Final Physical Exam Narrative Seen and examined. In the bed no shortness of breath was better yesterday but feels little worse today with dyspnea onexertion. Complain of chest congestion. She also has wheezing. Oxygen requirement remains same 2 L/min. Physical exam General: Alert, Oriented x3, Cooperative. Morbid obesity BMI 43.7 kg/m? HEENT: Atraumatic, PERRLA, EOMI, Normocephalic Oral: No Gingival or Mucosal Lesions/ Ulcerations Neck: Supple, No JVD, Negative Carotid Bruits Chest wall/Lungs: Air entry diminished in bilateral lung bases. Mild bilateralrhonchi and wheezing Cardiovascular: Irregular rate and rhythm, Normal S1, Normal S2, No M/G/R Abdomen: Bowel Sounds Present, Soft, Non Tender, Non-Distended : No dysuria. No renal angle tenderness. No suprapubic tenderness. Extremities: Mild pedal edema, Capillary Refill Less than 3 Seconds Skin: No rashes, No breakdown Musculoskeletal: No Tenderness to Palpation of Joints or Extremities Neurological: Cranial nerves II-XII grossly intact, DTR 2+/4. No acute focal neurological deficit. Psych/Mental Status: Normal Affect, Appropriate. Assessment & Plan Assessment/Plan (1) COPD exacerbation: (2) Acute heart failure with preserved ejection fraction (HFpEF): (3) Atrial fibrillation with RVR: PLAN: Plan Patient is a 74-year-old female who presented to [facility] ED on 06/02/2024 with worsening shortness of breath. Usually she is on 1.5 to 2 L ofO2 05/10 and uses CPAP at night with oxygen. History of COPD/asthma overlap. Nofever but cough, shortness of breath for 5 to 6 days. History of A-fib 1. Suspected predominant acute HFrEF exacerbation and pulmonary hypertension insetting of chronic hypoxic respiratory failure: Patient is being admitted in PCU. Chest x-ray initially reviewed and shows cardiomegaly and mild pulmonary venous congestion. 2D echo from 06/03 shows EF 40%, PASP 52 mmHg, mild global HKof LV, mild concentric LVH. No evidence of cardiac tamponade. Previous echo on05/07 showed EF 60% with moderate to severe pulmonary hypertension. It shows recovery from EF 20 to 25% in 2017. Lactic acid 3.7 probably due to hypoxia/decreased perfusion from heart failure. Repeat lactic acid normal. Troponin 9 and 23. Patient does not have chest pain or pressure. Increased troponin from CHF exacerbation. Cardiac demand Furosemide 40 mg IV twice daily. Heart failure core measures including intake and output, fluid restriction less than 1500 mL, daily weight monitoring, kidneyand electrolytes monitoring. 06/04: Continue IV Lasix. Electrolytes in normal range. I expect discharge tomorrow. 2. Possible mild COPD exacerbation with CHRISTIANNE on CPAP: Patient is being managed on scheduled bronchodilator, IV Solu-Medrol, Mucinex, incentive spirometry and Pep. Triple PCR for SARS-CoV-2, flu and RSV are negative. Respiratory panel negative 06/04: Mild leukocytosis due to IV Solu-Medrol otherwise does not seem has infection. No fever 3. Permanent A-fib with RVR on admission: ? Follows with Cardiology at [facility]. Was previously on digoxin but this was discontinued during recent hospitalization due to toxicity as noted below. Heart rate better but 108 216/min. Continue home Lopressor 75 mg twice daily and order IV Lopressor 5 mg every 6 hours as needed for heart rate greater than 130. Continue home Eliquis. 4. Recent prolonged hospitalization ? Recently hospitalized from 04/27-05/08 at [facility], see HPI for further details. The hospital course was notable for influenza A infection, MSSA pneumonia, NICK and digoxin toxicity. Patient was able to be discharged home without therapy on05/08. Chronic medical conditions: ? Class III obesity: BMI 43 on admit. Complicates hospital course, care and prognosis. ? Hypertension: Continue home Lopressor and lisinopril. ? Hyperlipidemia: Continue home statin. ? Depression: Continue home sertraline. DVT prophylaxis: Not indicated, on Eliquis CODE STATUS: DNR CCA, DNI Microbiology Past 72 Hours 06/02/24 11:37 Blood Culture (Wb) - Left Hand Blood Culture - Preliminary No growth in 48 hours. 06/02/24 11:37 Blood Culture (Wb) - Right Wrist Blood Culture - Preliminary No growth in 48 hours. 06/02/24 15:44 Mucosa - Nose Respiratory Panel (PCR) - Final 06/02/24 11:36 Mucosa - Nose SARS-CoV-2, Influenza & RSV (PCR) - Final Laboratory Results 06/04/24 05:20: WBC 14.6 H, RBC 2.93 L, Hgb 8.7 L, Hct 29.1 L, MCV 99.3 H, MCH 29.7, MCHC 29.9 L, RDW Std Deviation 63.7 H, RDW Coeff of Giles 17.8 H, Plt Count 90 L, MPV 13.3 H, Immature Gran % (Auto)2.200 H, Neut % (Auto) 84.0 H, Lymph % (Auto) 5.3 L, [place] % (Auto) 8.4, Eos % (Auto) 0.0, Baso % (Auto) 0.1, Absolute Neuts (auto) 12.3 H, Absolute Lymphs (auto) 0.77 L, Nucleated RBC % 0.3, Sodium 140, Potassium 4.1, Chloride 101, Carbon Dioxide 26.4, Anion Gap 13, BUN 37 H, Creatinine 0.94, EstimCreat Clear Calc 55.99, Est GFR (MDRD) Non-Af 64, BUN/Creatinine Ratio 39.9 H, Glucose 153 H, Calcium 9.6 Clinical Impression(s) from Imaging Studies Chest X-Ray 06/02/24 11:07 IMPRESSION: Cardiomegaly with mild congestion. Reading Location: [facility] Echocardiogram 06/02/24 13:32 Interpretation Summary Normal LV size. The left ventricular ejection fraction is 40 %. Mild concentric left ventricular hypertrophy. There is mild global hypokinesis of the left ventricle. Pulmonary artery systolic pressure is 52 mmHg. There are no echocardiographic indications of cardiac tamponade. Compared to previous study, the left ventricular systolic function has improved.. Ordering Physician: Wilbert Umanzor Referring Physician: Kory Ibarra Performed By: Kasandra Whitten RDCS Charges/Coding Visit Charges Inpatient E&M: 84097 Subs Hosp L2 06/04/24 1357 Cosigner Signature (if applicable): CC: ~ Signed [facility]03-22-2025 Progress note Author Raul Helton [facility] Note Date/Time June 03, 2024 1:[address] [facility] Medical Records Department [address] [place] [address] Progress Note - Hospitalist 06/03/24 1324 MR#: [id number] Acct: [id number] Name: ALTA BAKER Rep #:[id number] : 1950 74 From: Raul Garcia PCP: Dr. Kory Ibarra, DO Status:AD M IN Location: [place] [address] Reason for Visit Reason for Visit: Diagnoses Unspecified atrial fibrillation (06/02/24) Acute diastolic (congestive) heart failure (06/02/24) Chronic obstructive pulmonary disease with (acute) exacerbation (06/02/24) Objective Data Objective Data Vital Signs: Vital Signs Temp Pulse Resp BP Pulse Ox O2 Del Method O2 Flow Rate 97.5 F L 116 H 20 H 124/86 H 95 Nasal Cannula 2 06/03/24 08:16 06/03/24 11:43 06/03/24 11:43 06/03/24 08:29 06/03/24 08:16 06/03/24 09:31 06/03/24 09:31 FiO2 30 06/03/24 01:09 Oxygen Flow Rate (L/min) 2 Oxygen Delivery Method Nasal Cannula Weight: 216 lb 4.375 oz Body Mass Index (BMI) 43.7 Intake & Output: Intake and Output for Last 24 Hours 06/01/24 06/02/24 06/03/24 23:59 23:59 23:59 Intake Total 460 / 860 940 / 940 Output Total 1150 / 1150 Balance 460 / 360 -210 / -210 Lab / Micro Data 06/03/24 06:35 06/03/24 05:02 Labs: Laboratory Results - last 24 hr 06/02/24 11:37: Lactic Acid 3.7 H* 06/02/24 14:21: Procalcitonin 0.20 H 06/02/24 16:55: Lactic Acid 1.8, Troponin T Hi Sens 2 Hr 23 H 06/03/24 05:02: WBC Cancelled, Corrected WBC Cancelled, RBC Cancelled, Hgb Cancelled, Hct Cancelled, MCV Cancelled, MCH Cancelled, MCHC Cancelled, RDW Std Deviation Cancelled, RDW Coeff of Giles Cancelled, Plt Count Cancelled, MPV Cancelled, Diff Path Review Cancelled, Sodium 142, Potassium 4.2, Chloride 103, Carbon Dioxide 24.5, Anion Gap 15, BUN 32 H, Creatinine 1.09, Estim Creat Clear Calc 48.29 L, Est GFR (MDRD) Non-Af 54 L, BUN/Creatinine Ratio 29.5 H, Glucose 157 H, Calcium 9.6 06/03/24 06:35: WBC 12.3 H, RBC 3.02 L, Hgb 8.8 L, Hct 29.9 L, MCV 99.0 D, MCH 29.1, MCHC 29.4 L D, RDW Std Deviation 64.7 H, RDW Coeff of Giles 18.1 H, Plt Count 92 L, MPV 13.9 H Micro: Microbiology 06/02/24 15:44 Mucosa - Nose Respiratory Panel (PCR) - Final 06/02/24 11:36 Mucosa - Nose SARS-CoV-2, Influenza & RSV (PCR) - Final Radiography Diagnostic Testing: Radiology Impression Echocardiogram 06/02/24 13:32 Interpretation Summary Normal LV size. The left ventricular ejection fraction is 40 %. Mild concentric left ventricular hypertrophy. There is mild global hypokinesis of the left ventricle. Pulmonary artery systolic pressure is 52 mmHg. There are no echocardiographic indications of cardiac tamponade. Compared to previous study, the left ventricular systolic function has improved.. Ordering Physician: Wilbert Umanzor Referring Physician: Kory Ibarra Performed By: Kasandra Whitten RDCS Physical Exam Narrative Seen and examined. Patient is states her shortness of breath is better. Physical exam General: Alert, Oriented x3, Cooperative. Morbid obesity BMI 43.7 kg/m? HEENT: Atraumatic, PERRLA, EOMI, Normocephalic Oral: No Gingival or Mucosal Lesions/ Ulcerations Neck: Supple, No JVD, Negative Carotid Bruits Chest wall/Lungs: Air entry diminished in bilateral lung bases. Mild bilateralrhonchi and wheezing Cardiovascular: Irregular rate and rhythm, Normal S1, Normal S2, No M/G/R Abdomen: Bowel Sounds Present, Soft, Non Tender, Non-Distended : No dysuria. No renal angle tenderness. No suprapubic tenderness. Extremities: Mild pedal edema, Capillary Refill Less than 3 Seconds Skin: No rashes, No breakdown Musculoskeletal: No Tenderness to Palpation of Joints or Extremities Neurological: Cranial nerves II-XII grossly intact, DTR 2+/4. No acute focal neurological deficit. Psych/Mental Status: Normal Affect, Appropriate. Assessment & Plan Assessment/Plan (1) COPD exacerbation: (2) Acute heart failure with preserved ejection fraction (HFpEF): (3) Atrial fibrillation with RVR: PLAN: Plan Patient is a 74-year-old female who presented to [facility] ED on 06/02/2024 with worsening shortness of breath. Usually she is on 1.5 to 2 L ofO2 05/10 and uses CPAP at night with oxygen. History of COPD/asthma overlap. Nofever but cough, shortness of breath for 5 to 6 days. History of A-fib 1. Suspected predominant acute HFrEF exacerbation and pulmonary hypertension insetting of chronic hypoxic respiratory failure: Patient is being admitted in PCU. Chest x-ray initially reviewed and shows cardiomegaly and mild pulmonary venous congestion. 2D echo shows EF 40%, PASP 52 mmHg, mild global HK of LV, mild concentric LVH. No evidence of cardiac tamponade. Previous echo on 05/07 showed EF 60% with moderate to severe pulmonary hypertension. It shows recoveryfrom EF 20 to 25% in 2017. Lactic acid 3.7 probably due to hypoxia/decreased perfusion from heart failure. Repeat lactic acid normal. Troponin 9 and 23. Patient does not have chest pain or pressure. Increased troponin from CHF exacerbation. Cardiac demand Furosemide 40 mg IV twice daily. Heart failure core measures including intake and output, fluid restriction less than 1500 mL, daily weight monitoring, kidneyand electrolytes monitoring. 2. Possible mild COPD exacerbation with CHRISTIANNE on CPAP: Patient is being managed on scheduled bronchodilator, IV Solu-Medrol, Mucinex, incentive spirometry and Pep. Triple PCR for SARS-CoV-2, flu and RSV are negative. Respiratory panel negative 3. Permanent A-fib with RVR on admission: ? Follows with Cardiology at [facility]. Was previously on digoxin but this was discontinued during recent hospitalization due to toxicity as noted below. Heart rate better but 108 216/min. Continue home Lopressor 75 mg twice daily and order IV Lopressor 5 mg every 6 hours as needed for heart rate greater than 130. Continue home Eliquis. 4. Recent prolonged hospitalization ? Recently hospitalized from 04/27-05/08 at [facility], see HPI for further details. The hospital course was notable for influenza A infection, MSSA pneumonia, NICK and digoxin toxicity. Patient was able to be discharged home without therapy on05/08. Chronic medical conditions: ? Class III obesity: BMI 43 on admit. Complicates hospital course, care and prognosis. ? Hypertension: Continue home Lopressor and lisinopril. ? Hyperlipidemia: Continue home statin. ? Depression: Continue home sertraline. DVT prophylaxis: Not indicated, on Eliquis CODE STATUS: DNR CCA, DNI Microbiology Past 72 Hours 06/02/24 15:44 Mucosa - Nose Respiratory Panel (PCR) - Final 06/02/24 11:36 Mucosa - Nose SARS-CoV-2, Influenza & RSV (PCR) - Final Laboratory Results 06/02/24 11:37: Lactic Acid 3.7 H* 06/02/24 14:21: Procalcitonin 0.20 H 06/02/24 16:55: Lactic Acid 1.8, Troponin T Hi Sens 2 Hr 23 H 06/03/24 05:02: WBC Cancelled, Corrected WBC Cancelled, RBC Cancelled, Hgb Cancelled, Hct Cancelled, MCV Cancelled, MCH Cancelled, MCHC Cancelled, RDW Std Deviation Cancelled, RDW Coeff of Giles Cancelled, Plt Count Cancelled, MPV Cancelled, Diff Path Review Cancelled, Sodium 142, Potassium 4.2, Chloride 103, Carbon Dioxide 24.5, Anion Gap 15, BUN 32 H, Creatinine 1.09, Estim Creat Clear Calc 48.29 L, Est GFR (MDRD) Non-Af 54 L, BUN/Creatinine Ratio 29.5 H, Glucose 157 H, Calcium 9.6 06/03/24 06:35: WBC 12.3 H, RBC 3.02 L, Hgb 8.8 L, Hct 29.9 L, MCV 99.0 D, MCH 29.1, MCHC 29.4 L D, RDW Std Deviation 64.7 H, RDW Coeff of Giles 18.1 H, Plt Count 92 L, MPV 13.9 H Clinical Impression(s) from Imaging Studies Chest X-Ray 06/02/24 11:07 IMPRESSION: Cardiomegaly with mild congestion. Reading Location: [facility] Echocardiogram 06/02/24 13:32 Interpretation Summary Normal LV size. The left ventricular ejection fraction is 40 %. Mild concentric left ventricular hypertrophy. There is mild global hypokinesis of the left ventricle. Pulmonary artery systolic pressure is 52 mmHg. There are no echocardiographic indications of cardiac tamponade. Compared to previous study, the left ventricular systolic function has improved.. Ordering Physician: Wilbert Umanzor Referring Physician: Kory Ibarra Performed By: Kasandra Whitten RDCS Charges/Coding Visit Charges Inpatient E&M: 95496 Subs Hosp L2 06/03/24 1337 <Electronically signed by Raul Helton MD> Cosigner Signature (if applicable): CC: ~ Signed [facility] Work Phone: [phone]) 149-266203-22-2025 Progress note [facility] Medical Records Department [address] [place] [address] Progress Note - Hospitalist 06/03/24 1324 MR#: [id number] Acct: [id number] Name: ALTA BAKER Rep #:[id number] : 1950 74 From: Raul Garcia PCP: Dr. Kory Ibarra, DO Status:AD M IN Location: [place] [address]- 1 Reason for Visit Reason for Visit: Diagnoses Unspecified atrial fibrillation (06/02/24) Acute diastolic (congestive) heart failure (06/02/24) Chronic obstructive pulmonary disease with (acute) exacerbation (06/02/24) Objective Data Objective Data Vital Signs: Vital Signs Temp Pulse Resp BP Pulse Ox O2 Del Method O2 Flow Rate 97.5 F L 116 H 20 H 124/86 H 95 Nasal Cannula 2 06/03/24 08:16 06/03/24 11:43 06/03/24 11:43 06/03/24 08:29 06/03/24 08:16 06/03/24 09:31 06/03/24 09:31 FiO2 30 06/03/24 01:09 Oxygen Flow Rate (L/min) 2 Oxygen Delivery Method Nasal Cannula Weight: 216 lb 4.375 oz Body Mass Index (BMI) 43.7 Intake & Output: Intake and Output for Last 24 Hours 06/01/24 06/02/24 06/03/24 23:59 23:59 23:59 Intake Total 460 / 860 940 / 940 Output Total 1150 / 1150 Balance 460 / 360 -210 / -210 Lab / Micro Data 06/03/24 06:35 06/03/24 05:02 Labs: Laboratory Results - last 24 hr 06/02/24 11:37: Lactic Acid 3.7 H* 06/02/24 14:21: Procalcitonin 0.20 H 06/02/24 16:55: Lactic Acid 1.8, Troponin T Hi Sens 2 Hr 23 H 06/03/24 05:02: WBC Cancelled, Corrected WBC Cancelled, RBC Cancelled, Hgb Cancelled, Hct Cancelled, MCV Cancelled, MCH Cancelled, MCHC Cancelled, RDW Std Deviation Cancelled, RDW Coeff of Giles Cancelled, Plt Count Cancelled, MPV Cancelled, Diff Path Review Cancelled, Sodium 142, Potassium 4.2, Chloride 103, Carbon Dioxide 24.5, Anion Gap 15, BUN 32 H, Creatinine 1.09, Estim Creat Clear Calc 48.29L, Est GFR (MDRD) Non-Af 54 L, BUN/Creatinine Ratio 29.5 H, Glucose 157 H, Calcium 9.6 06/03/24 06:35: WBC 12.3 H, RBC 3.02 L, Hgb 8.8 L, Hct 29.9 L, MCV 99.0 D, MCH 29.1, MCHC 29.4 L D,RDW Std Deviation 64.7 H, RDW Coeff of Giles 18.1 H, Plt Count 92 L, MPV 13.9 H Micro: Microbiology 06/02/24 15:44 Mucosa - Nose Respiratory Panel (PCR) - Final 06/02/24 11:36 Mucosa - Nose SARS-CoV-2, Influenza & RSV (PCR) - Final Radiography Diagnostic Testing: Radiology Impression Echocardiogram 06/02/24 13:32 Interpretation Summary Normal LV size. The left ventricular ejection fraction is 40 %. Mild concentric left ventricular hypertrophy. There is mild global hypokinesis of the left ventricle. Pulmonary artery systolic pressure is 52 mmHg. There are no echocardiographic indications of cardiac tamponade. Compared to previous study, the left ventricular systolic function has improved.. Ordering Physician: Wilbert Umanzor Referring Physician: Kory Ibarra Performed By: Kasandra Whitten RDCS Physical Exam Narrative Seen and examined. Patient is states her shortness of breath is better. Physical exam General: Alert, Oriented x3, Cooperative. Morbid obesity BMI 43.7 kg/m? HEENT: Atraumatic, PERRLA, EOMI, Normocephalic Oral: No Gingival or Mucosal Lesions/ Ulcerations Neck: Supple, No JVD, Negative Carotid Bruits Chest wall/Lungs: Air entry diminished in bilateral lung bases. Mild bilateralrhonchi and wheezing Cardiovascular: Irregular rate and rhythm, Normal S1, Normal S2, No M/G/R Abdomen: Bowel Sounds Present, Soft, Non Tender, Non-Distended : No dysuria. No renal angle tenderness. No suprapubic tenderness. Extremities: Mild pedal edema, Capillary Refill Less than 3 Seconds Skin: No rashes, No breakdown Musculoskeletal: No Tenderness to Palpation of Joints or Extremities Neurological: Cranial nerves II-XII grossly intact, DTR 2+/4. No acute focal neurological deficit. Psych/Mental Status: Normal Affect, Appropriate. Assessment & Plan Assessment/Plan (1) COPD exacerbation: (2) Acute heart failure with preserved ejection fraction (HFpEF): (3) Atrial fibrillation with RVR: PLAN: Plan Patient is a 74-year-old female who presented to [facility] ED on 06/02/2024 with worsening shortness of breath. Usually she is on 1.5 to 2 L ofO2 05/10 and uses CPAP at night with oxygen. History of COPD/asthma overlap. Nofever but cough, shortness of breath for 5 to 6 days. History of A-fib 1. Suspected predominant acute HFrEF exacerbation and pulmonary hypertension insetting of chronic hypoxic respiratory failure: Patient is being admitted in PCU. Chest x-ray initially reviewed and shows cardiomegaly and mild pulmonary venous congestion. 2D echo shows EF 40%, PASP 52 mmHg, mild global HK of LV, mild concentric LVH. No evidence of cardiac tamponade. Previous echo on 05/07 showed EF 60% with moderate to severe pulmonary hypertension. It shows recoveryfrom EF 20 to 25% in 2017. Lactic acid 3.7 probably due to hypoxia/decreased perfusion from heart failure. Repeat lactic acid normal. Troponin 9 and 23. Patient does not have chest pain or pressure. Increased troponin from CHF exacerbation. Cardiac demand Furosemide 40 mg IV twice daily. Heart failure core measures including intake and output, fluid restriction less than 1500 mL, daily weight monitoring, kidneyand electrolytes monitoring. 2. Possible mild COPD exacerbation with CHRISTIANNE on CPAP: Patient is being managed on scheduled bronchodilator, IV Solu-Medrol, Mucinex, incentive spirometry and Pep. Triple PCR for SARS-CoV-2, flu and RSV are negative. Respiratory panel negative 3. Permanent A-fib with RVR on admission: ? Follows with Cardiology at [facility]. Was previously on digoxin but this was discontinued during recent hospitalization due to toxicity as noted below. Heart rate better but 108 216/min. Continue home Lopressor 75 mg twice daily and order IV Lopressor 5 mg every 6 hours as needed for heart rate greater than 130. Continue home Eliquis. 4. Recent prolonged hospitalization ? Recently hospitalized from 04/27-05/08 at [facility], see HPI for further details. The hospital course was notable for influenza A infection, MSSA pneumonia, NICK and digoxin toxicity. Patient was able to be discharged home without therapy on05/08. Chronic medical conditions: ? Class III obesity: BMI 43 on admit. Complicates hospital course, care and prognosis. ? Hypertension: Continue home Lopressor and lisinopril. ? Hyperlipidemia: Continue home statin. ? Depression: Continue home sertraline. DVT prophylaxis: Not indicated, on Eliquis CODE STATUS: DNR CCA, DNI Microbiology Past 72 Hours 06/02/24 15:44 Mucosa - Nose Respiratory Panel (PCR) - Final 06/02/24 11:36 Mucosa - Nose SARS-CoV-2, Influenza & RSV (PCR) - Final Laboratory Results 06/02/24 11:37: Lactic Acid 3.7 H* 06/02/24 14:21: Procalcitonin 0.20 H 06/02/24 16:55: Lactic Acid 1.8, Troponin T Hi Sens 2 Hr 23 H 06/03/24 05:02: WBC Cancelled, Corrected WBC Cancelled, RBC Cancelled, Hgb Cancelled, Hct Cancelled, MCV Cancelled, MCH Cancelled, MCHC Cancelled, RDW Std Deviation Cancelled, RDW Coeff of Giles Cancelled, Plt Count Cancelled, MPV Cancelled, Diff Path Review Cancelled, Sodium 142, Potassium 4.2, Chloride 103, Carbon Dioxide 24.5, Anion Gap 15, BUN 32 H, Creatinine 1.09, Estim Creat Clear Calc 48.29L, Est GFR (MDRD) Non-Af 54 L, BUN/Creatinine Ratio 29.5 H, Glucose 157 H, Calcium 9.6 06/03/24 06:35: WBC 12.3 H, RBC 3.02 L, Hgb 8.8 L, Hct 29.9 L, MCV 99.0 D, MCH 29.1, MCHC 29.4 L D,RDW Std Deviation 64.7 H, RDW Coeff of Giles 18.1 H, Plt Count 92 L, MPV 13.9 H Clinical Impression(s) from Imaging Studies Chest X-Ray 06/02/24 11:07 IMPRESSION: Cardiomegaly with mild congestion. Reading Location: [facility] Echocardiogram 06/02/24 13:32 Interpretation Summary Normal LV size. The left ventricular ejection fraction is 40 %. Mild concentric left ventricular hypertrophy. There is mild global hypokinesis of the left ventricle. Pulmonary artery systolic pressure is 52 mmHg. There are no echocardiographic indications of cardiac tamponade. Compared to previous study, the left ventricular systolic function has improved.. Ordering Physician: Wilbert Umanzor Referring Physician: Kory Ibarra Performed By: Kasandra Whitten RDCS Charges/Coding Visit Charges Inpatient E&M: 35240 Subs Hosp L2 06/03/24 1337 Cosigner Signature (if applicable): CC: ~ Signed [facility]03-21-2025 History and physical note Author Wilbert Umanzor [facility] Note Date/Time June 02, 2024 6:[address] [facility] Medical Records Department [address] [place] [id number] H&P Exam - Hospitalist 06/02/24 1320 MR#: [id number] Acct: [id number] Name: ALTA BAKER Rep #:[id number] : 1950 74 From: Wilbert cheng DO PCP: Dr. Kory Ibarra, DO Status:AD M IN Location: [facility] [id number] HPI - General General Date of Admission: 06/02/24 Date of Service: 06/02/24 Chief Complaint: Worsening shortness of breath HPI Narrative ALTA BAKER, is a 74 F who presented to [facility] ED on 06/02/2024 with worsening shortness of breath. Patient has history of COPD and wears 1 to 2 L at baseline. Medical history also significant for permanent A-fib, HFpEF, pulmonary hypertension and depression. She receives most of her care through [facility]. She was recently hospitalized at [facility] from 04/27-05/08 for COPD exacerbation in setting of influenza A and MSSA pneumonia, digoxin toxicity and NICK; reviewed discharge summary in [facility]. She lives at home with her daughter and was able to be discharged home after that hospitalization. She presented today with worsening shortness of breath over the past 4 to 5 days. Chest x-ray showed cardiomegaly with mild congestion. Was noted to be Minesh-fib with RVR with heart rate to the 140s; was given a dose of IV Cardizem withimprovement to the 100s. COVID/flu/RSV negative. Lactic acid was 3.7, CBC and BMP otherwise unremarkable. Was given a breathing treatment and a dose of IV steroids with concern for COPD exacerbation, and hospitalist was contacted for admission. I saw the patient at bedside in the ED. Patient was sitting back comfortably inbed and breathing comfortably on 2 L nasal cannula at rest. She did have mild wheezing with crackles noted in upper airways bilaterally but otherwise had goodair movement throughout. She reported mild lower extremity swelling today but notes it is not far from her baseline. She denies any recent fevers or chills. Has been taking her home medications as prescribed. No other acute concerns at this time. [facility] Medical History (Updated 06/02/24 @ 18:[address] Wilbert Umanzor, ) Congestive heart failure (CHF) Anxiety Pulmonary embolism COPD (chronic obstructive pulmonary disease) Non-smoker CPAP (continuous positive airway pressure) dependence On home oxygen therapy Atrial fibrillation Hypertension Asthma Depression Atrial fibrillation with RVR Anticoagulant long-term use Acute respiratory failure with hypoxia Obstructive sleep apnea Congestive heart failure (CHF) Dyslipidemia HTN (hypertension) Paroxysmal atrial fibrillation Morbid obesity with body mass index of 50.0-59.9 in adult Home Medications ?Medication ?Instructions ?Recorded ?Last Taken ?Type furosemide 40 mg tablet 40 mg PO BID diuretic 07/14/16 History digoxin 125 mcg (0.125 mg) tablet 125 mcg PO DAILY hea rt rate 01/24/16 07/14/16 History (Digox) lisinopril 10 mg tablet 20 mg PO DAILY blood pressur e 01/24/16 07/14/16 History metoprolol tartrate 50 mg tablet 100 mg PO BID blood p ressure 01/24/16 07/14/16 History potassium chloride 20 mEq 20 meq PO DAILY supplement 1 03/25/15 07/14/16 History tablet,extended release(part/cryst) (Klor-Con M) atorvastatin 10 mg tablet 10 mg PO QHS cholesterol 05/0107/13/16 History apixaban 5 mg tablet (Eliquis) 5 mg PO BID blood thinn er 01/18/22 Unknown History albuterol sulfate 0.63 mg/3 mL 0.63 mg (3 mL) inhalati on Q4H PRN 01/22/22 Unknown Rx solution for nebulization shortness of breath or wheez ing #75 mL guaifenesin 1,200 mg tablet, 1,200 mg PO BID cough #10 tabs 01/22/22 Unknown Rx extended release 12 hr (Mucus Relief ER) amoxicillin 875 mg-potassium 1 tab PO BID sinusitis #1 4 tabs 12/03/23 Unknown Rx clavulanate 125 mg tablet dexamethasone 6 mg tablet 6 mg PO DAILY #7 tabs Unknown Rx fluconazole 200 mg tablet 200 mg PO DAILY #7 tabs 11/14 Unknown Rx amoxicillin 875 mg-potassium 1 tab PO Q12H sinusitis 1 0 days 05/25/24 Unknown Rx clavulanate 125 mg tablet #20 tabs folic acid 1 mg tablet 1 mg PO DAILY see PCP Unknown History mometasone-formoterol HFA 100 inhalation wheezing 05/13 06/06 Unknown History mcg-5 mcg/actuation aerosol inhaler (Dulera) sertraline 50 mg tablet 50 mg PO QHS mental health 0 05/25/24 Unknown History tiotropium bromide 2.5 inhalation DAILY wheezing Unknown History mcg/actuation mist for inhalation (Spiriva Respimat) Allergy/AdvReac Type Severity Reaction Status Date / Time bee venom protein (honey Allergy Other Verified 05/25/24 15:20 bee) (bee sting) Opioids - Morphine Analogues Allergy Other Verified 05/25/24 15:20 (narcotics) Tetanus Vaccines and Toxoid Allergy Unknown Verified 05/25/24 15:20 (Tetanus Vaccines & Toxoid) Family History Grandmother Breast cancer Father CVA (cerebral vascular accident) Surgical History H/O oophorectomy History of appendectomy Social History household members: children and none housing: house number of children: 2 current occupational status: retired pets and animals: Yes (2 dogs/2 cats) Smoking Status: Never smoker alcohol intake: never substance use type: does not use ROS Constitutional Constitutional: Reports fatigue; Denies chills, fever(s) or weakness Eyes Eyes: Denies change in vision Cardiovascular Cardiovascular: Denies chest pain Respiratory/Chest Respiratory/Chest: Reports cough, dyspnea, shortness of breath at rest, shortness of breath with exertion and wheezing; Denies productive cough Gastrointestinal Gastrointestinal: Denies abdominal pain Musculoskeletal Musculoskeletal: Denies arthralgias or myalgias Vital Signs Vital Signs Vital Signs: 06/02/24 10:33 06/02/24 10:36 06/02/24 10:43 Temperature 97.6 F L Temperature Source Temporal Pulse Rate 146 H 144 H Respiratory Rate 18 28 H Respiratory Effort Respiratory Depth Respiratory Pattern Tachypnea Blood Pressure 134/92 H Blood Pressure Mean 106 Pulse Ox 100 94 100 Oxygen Delivery Method Bi-pap Bi-pap Fraction of Inspired Oxygen (FIO2) 40 30 06/02/24 11:47 06/02/24 11:48 06/02/24 12:47 Temperature 98.0 F Temperature Source Temporal Pulse Rate 97 103 H Respiratory Rate 21 H 20 H Respiratory Effort Short of Breath Labored Respiratory Depth Shallow Respiratory Pattern Tachypnea Blood Pressure 122/67 H 121/71 H Blood Pressure Mean 85 87 Pulse Ox 99 96 Oxygen Delivery Method Bi-pap Bi-pap Bi-pap Fraction of Inspired Oxygen (FIO2) Weight Weight: 102.1 kg Body Mass Index (BMI) 45.4 Physical Exam Const alert, oriented x3 and no apparent distress Constitutional Narrative: Elderly female, class III obesity, mildly fatigued appearing but otherwise sitting back comfortably in bed, conversing normally and in no acute distress. General Appearance: cooperative and comfortable HEENT normocephalic, head/scalp atraumatic, hearing grossly normal bilaterally, nasal mucous membranes and turbinates normal and moist oral mucous membranes Eyes PERRL, EOMs intact bilaterally and conjunctivae normal Neck full ROM Chest inspection of chest normal Resp normal respiratory effort and no use of accessory muscles Resp Narrative: Breathing comfortably on 2 L nasal cannula at rest. Mild upper airway wheezing noted and mild crackles in mid lung zones noted. Otherwise good air movement throughout. Cardio no murmurs and peripheral pulses 2+ throughout Cardio Narrative: A-fib with RVR. GI normal to inspection, nondistended, normoactive bowel sounds, soft to palpation,non-tender and non-distended Back/Spine normal ROM Extremity Extremity Narrative: +1 lower extremity pitting edema noted. Skin no rashes or lesions noted Neuro moves all extremities and no focal motor deficits Speech: speech normal Motor Exam: strength 5/5 throughout Psych mental status grossly normal Results Lab / Micro Data 06/02/24 10:54 06/02/24 10:54 Labs: Laboratory Results - last 24 hr 06/02/24 10:54: WBC 8.2, RBC 4.74, Hgb 14.0, Hct 43.0, MCV 90.7, MCH 29.5, MCHC 32.6, RDW Std Deviation 43.3, RDW Coeff of Giles 13.1, Plt Count 271, MPV 10.3, Immature Gran % (Auto) 0.400, Neut % (Auto) 66.9, Lymph % (Auto) 22.6, [place] % (Auto) 6.7, Eos % (Auto) 2.8, Baso % (Auto) 0.6, Absolute Neuts (auto) 5.5, Absolute Lymphs (auto) 1.86, Nucleated RBC % 0, Sodium 141, Potassium 3.6, Chloride 107, Carbon Dioxide 20.8 L, Anion Gap 13, BUN 14, Creatinine 0.69 L, Estim Creat Clear Calc 67.37, Est GFR (MDRD) Non-Af 92, BUN/Creatinine Ratio 19.7, Glucose 175 H, Calcium 8.8, Troponin T High Sens 9, NT pro BNP II 168 06/02/24 11:37: Lactic Acid 3.7 H* Micro: Microbiology 06/02/24 11:36 Mucosa - Nose SARS-CoV-2, Influenza & RSV (PCR) - Final Imaging Radiology Impression Chest X-Ray 06/02/24 11:07 IMPRESSION: Cardiomegaly with mild congestion. Reading Location: [facility] Assessment & Plan Assessment/Plan (1) COPD exacerbation: (2) Acute heart failure with preserved ejection fraction (HFpEF): (3) Atrial fibrillation with RVR: PLAN: Plan Patient is a 74-year-old female who presented to [facility] ED on 06/02/2024 with worsening shortness of breath. 1. Suspected combined COPD exacerbation and mild HFpEF exacerbation in setting of chronic hypoxic respiratory failure ? Admit under inpatient status to PCU. On home 1 to 2 L nasal cannula. Oxygen saturations in low to mid 90s on 2 L nasal cannula in the ED but dropped to the mid 80s with exertion. Chest x-ray with cardiomegaly and mild vascular congestion. Upper airway wheezing noted on exam. Notably patient has history of HFrEF and last echo in our system showed EF to 20 to 25% in 2017 with global dysfunction. Has had recovery of ejection fraction and echo at outside hospitalon 05/07 showed EF 60%, moderate to severe pulmonary hypertension. Will repeat echo here given her presentation. Suspect patient may have a degree of volume overload secondary to A-fib with RVR on admit. Will treat with IV steroids and DuoNebs for COPD exacerbation. Infectious workup negative to this point, WBC count normal and afebrile so we will hold on antibiotics for now. Given 1 dose of IV Lasix in the ED and will continue home p.o. Lasix 40 mg twice daily for now. Monitor daily BMP and urine output. 2. Permanent A-fib with RVR ? Follows with Cardiology at [facility]. Was previously on digoxin but this was discontinued during recent hospitalization due to toxicity as noted below. In A- fib with RVR to the 140s on admit here, improved to the 110s with IV Cardizem bolus. Will continue home Lopressor 75 mg twice daily and order IV Lopressor 5 mg every 6 hours as needed for heart rate greater than 130. Continue home Eliquis. 3. Elevated lactic acid, improved ? Lactate 3.7 on admit. Suspect secondary to increased work of breathing from mild respiratory distress on admission. Improved to 1.8 on recheck, no need to monitor further. 4. Recent prolonged hospitalization ? Recently hospitalized from 04/27-05/08 at [facility], see HPI for further details. The hospital course was notable for influenza A infection, MSSA pneumonia, NICK and digoxin toxicity. Patient was able to be discharged home without therapy on05/08. Chronic medical conditions: ? Class III obesity: BMI 43 on admit. Complicates hospital course, care and prognosis. ? Hypertension: Continue home Lopressor and lisinopril. ? Hyperlipidemia: Continue home statin. ? Depression: Continue home sertraline. DVT prophylaxis: Not indicated, on Eliquis CODE STATUS: DNR CCA, DNI Expected disposition: Home, 2 to 3 days Total clinical time spent by myself addressing the patient's medical issues, reviewing all the data, and collaborating with patient's care team: 75 minutes. Charges/Coding Visit Charges Inpatient E&M: 11984 Init Hosp L3 06/02/24 1836 <Electronically signed by Wilbert Umanzor DO> Cosigner Signature (if applicable): CC: Dr. Wilbert Umanzor DO; Dr. Kory Ibarra DO~ Signed [facility] Work Phone: [phone]) [phone] History and physical note [facility] Medical Records Department [address] [place] [address] H&P Exam - Hospitalist 06/02/24 1320 MR#: [id number] Acct: [id number] Name: ALTA BAKER Rep #:[id number] : 1950 74 From: Wilbert cheng DO PCP: Dr. Kory Ibarra DO Status:AD M IN Location: [facility] [id number] HPI - General General Date of Admission: 06/02/24 Date of Service: 06/02/24 Chief Complaint: Worsening shortness of breath HPI Narrative ALTA BAKER, is a 74 F who presented to [facility] ED on 06/02/2024 with worsening shortness of breath. Patient has history of COPD and wears 1 to 2 L at baseline. Medical history also significant for permanent A- fib, HFpEF, pulmonary hypertension and depression. She receives mostof her care through [facility]. She was recently hospitalized at [facility] from 04/27-05/08 for COPD exacerbation in setting of influenza A and MSSA pneumonia, digoxin toxicity and NICK; reviewed discharge summary in [facility]. She lives at home with her daughter and was able to be discharged home after that hospitalization. She presented today with worsening shortness of breath over the past 4 to 5 days. Chest x-ray showed cardiomegaly with mild congestion. Was noted to be Minesh-fib with RVR with heartrate to the 140s; was given a dose of IV Cardizem withimprovement to the 100s. COVID/flu/RSV negative. Lactic acid was 3.7, CBC and BMP otherwise unremarkable. Was given a breathing treatment and a dose of IV steroids with concern for COPD exacerbation, and hospitalist was contacted for admission. I saw the patient at bedside in the ED. Patient was sitting back comfortably inbed and breathing comfortably on 2 L nasal cannula at rest. She did have mild wheezing with crackles noted in upper airways bilaterally but otherwise had goodair movement throughout. She reported mild lower extremity swelling today but notes it is not far from her baseline. She denies any recent fevers or chills. Has been taking her home medications as prescribed. No other acute concerns at this time. [facility] Medical History (Updated 06/02/24 @ 18:[address] Wilbert Umanzor, DO) Congestive heart failure (CHF) Anxiety Pulmonary embolism COPD (chronic obstructive pulmonary disease) Non-smoker CPAP (continuous positive airway pressure) dependence On home oxygen therapy Atrial fibrillation Hypertension Asthma Depression Atrial fibrillation with RVR Anticoagulant long-term use Acute respiratory failure with hypoxia Obstructive sleep apnea Congestive heart failure (CHF) Dyslipidemia HTN (hypertension) Paroxysmal atrial fibrillation Morbid obesity with body mass index of 50.0-59.9 in adult Home Medications ?Medication ?Instructions ?Recorded ?Last Taken ?Type furosemide 40 mg tablet 40 mg PO BID diuretic 07/14/16 History digoxin 125 mcg (0.125 mg) tablet 125 mcg PO DAILY hea rt rate 01/24/16 07/14/16 History (Digox) lisinopril 10 mg tablet 20 mg PO DAILY blood pressur e 01/24/16 07/14/16 History metoprolol tartrate 50 mg tablet 100 mg PO BID blood p ressure 01/24/16 07/14/16 History potassium chloride 20 mEq 20 meq PO DAILY supplement 1 03/25/15 07/14/16 History tablet,extended release(part/cryst) (Klor-Con M) atorvastatin 10 mg tablet 10 mg PO QHS cholesterol 05/0107/13/16 History apixaban 5 mg tablet (Eliquis) 5 mg PO BID blood thinn er 01/18/22 Unknown History albuterol sulfate 0.63 mg/3 mL 0.63 mg (3 mL) inhalati on Q4H PRN 01/22/22 Unknown Rx solution for nebulization shortness of breath or wheez ing #75 mL guaifenesin 1,200 mg tablet, 1,200 mg PO BID cough #10 tabs 01/22/22 Unknown Rx extended release 12 hr (Mucus Relief ER) amoxicillin 875 mg-potassium 1 tab PO BID sinusitis #1 4 tabs 12/03/23 Unknown Rx clavulanate 125 mg tablet dexamethasone 6 mg tablet 6 mg PO DAILY #7 tabs Unknown Rx fluconazole 200 mg tablet 200 mg PO DAILY #7 tabs 11/14 Unknown Rx amoxicillin 875 mg-potassium 1 tab PO Q12H sinusitis 1 0 days 05/25/24 Unknown Rx clavulanate 125 mg tablet #20 tabs folic acid 1 mg tablet 1 mg PO DAILY see PCP Unknown History mometasone-formoterol HFA 100 inhalation wheezing 05/13 06/06 Unknown History mcg-5 mcg/actuation aerosol inhaler (Dulera) sertraline 50 mg tablet 50 mg PO QHS mental health 0 05/25/24 Unknown History tiotropium bromide 2.5 inhalation DAILY wheezing Unknown History mcg/actuation mist for inhalation (Spiriva Respimat) Allergy/AdvReac Type Severity Reaction Status Date / Time bee venom protein (honey Allergy Other Verified 05/25/24 15:20 bee) (bee sting) Opioids - Morphine Analogues Allergy Other Verified 05/25/24 15:20 (narcotics) Tetanus Vaccines and Toxoid Allergy Unknown Verified 05/25/24 15:20 (Tetanus Vaccines & Toxoid) Family History Grandmother Breast cancer Father CVA (cerebral vascular accident) Surgical History H/O oophorectomy History of appendectomy Social History household members: children and none housing: house number of children: 2 current occupational status: retired pets and animals: Yes (2 dogs/2 cats) Smoking Status: Never smoker alcohol intake: never substance use type: does not use ROS Constitutional Constitutional: Reports fatigue; Denies chills, fever(s) or weakness Eyes Eyes: Denies change in vision Cardiovascular Cardiovascular: Denies chest pain Respiratory/Chest Respiratory/Chest: Reports cough, dyspnea, shortness of breath at rest, shortness of breath with exertion and wheezing; Denies productive cough Gastrointestinal Gastrointestinal: Denies abdominal pain Musculoskeletal Musculoskeletal: Denies arthralgias or myalgias Vital Signs Vital Signs Vital Signs: 06/02/24 10:33 06/02/24 10:36 06/02/24 10:43 Temperature 97.6 F L Temperature Source Temporal Pulse Rate 146 H 144 H Respiratory Rate 18 28 H Respiratory Effort Respiratory Depth Respiratory Pattern Tachypnea Blood Pressure 134/92 H Blood Pressure Mean 106 Pulse Ox 100 94 100 Oxygen Delivery Method Bi-pap Bi-pap Fraction of Inspired Oxygen (FIO2) 40 30 06/02/24 11:47 06/02/24 11:48 06/02/24 12:47 Temperature 98.0 F Temperature Source Temporal Pulse Rate 97 103 H Respiratory Rate 21 H 20 H Respiratory Effort Short of Breath Labored Respiratory Depth Shallow Respiratory Pattern Tachypnea Blood Pressure 122/67 H 121/71 H Blood Pressure Mean 85 87 Pulse Ox 99 96 Oxygen Delivery Method Bi-pap Bi-pap Bi-pap Fraction of Inspired Oxygen (FIO2) Weight Weight: 102.1 kg Body Mass Index (BMI) 45.4 Physical Exam Const alert, oriented x3 and no apparent distress Constitutional Narrative: Elderly female, class III obesity, mildly fatigued appearing but otherwise sitting back comfortablyin bed, conversing normally and in no acute distress. General Appearance: cooperative and comfortable HEENT normocephalic, head/scalp atraumatic, hearing grossly normal bilaterally, nasal mucous membranes and turbinates normal and moist oral mucous membranes Eyes PERRL, EOMs intact bilaterally and conjunctivae normal Neck full ROM Chest inspection of chest normal Resp normal respiratory effort and no use of accessory muscles Resp Narrative: Breathing comfortably on 2 L nasal cannula at rest. Mild upper airway wheezing noted and mild crackles in mid lung zones noted. Otherwise good air movement throughout. Cardio no murmurs and peripheral pulses 2+ throughout Cardio Narrative: A-fib with RVR. GI normal to inspection, nondistended, normoactive bowel sounds, soft to palpation,non-tender and non-distended Back/Spine normal ROM Extremity Extremity Narrative: +1 lower extremity pitting edema noted. Skin no rashes or lesions noted Neuro moves all extremities and no focal motor deficits Speech: speech normal Motor Exam: strength 5/5 throughout Psych mental status grossly normal Results Lab / Micro Data 06/02/24 10:54 06/02/24 10:54 Labs: Laboratory Results - last 24 hr 06/02/24 10:54: WBC 8.2, RBC 4.74, Hgb 14.0, Hct 43.0, MCV 90.7, MCH 29.5, MCHC 32.6, RDW Std Deviation 43.3, RDW Coeff of Giles 13.1, Plt Count 271, MPV 10.3, Immature Gran % (Auto) 0.400, Neut % (Auto) 66.9, Lymph % (Auto) 22.6, [place] % (Auto) 6.7, Eos % (Auto) 2.8, Baso % (Auto) 0.6, Absolute Neuts(auto) 5.5, Absolute Lymphs (auto) 1.86, Nucleated RBC % 0, Sodium 141, Potassium 3.6, Chloride 107, Carbon Dioxide 20.8 L, Anion Gap 13, BUN 14, Creatinine 0.69 L, Estim Creat Clear Calc 67.37, Est GFR (MDRD) Non-Af 92, BUN/Creatinine Ratio 19.7, Glucose 175 H, Calcium 8.8, Troponin T High Sens 9,NT pro BNP II 168 06/02/24 11:37: Lactic Acid 3.7 H* Micro: Microbiology 06/02/24 11:36 Mucosa - Nose SARS-CoV-2, Influenza & RSV (PCR) - Final Imaging Radiology Impression Chest X-Ray 06/02/24 11:07 IMPRESSION: Cardiomegaly with mild congestion. Reading Location: [facility] Assessment & Plan Assessment/Plan (1) COPD exacerbation: (2) Acute heart failure with preserved ejection fraction (HFpEF): (3) Atrial fibrillation with RVR: PLAN: Plan Patient is a 74-year-old female who presented to [facility] ED on 06/02/2024 with worsening shortness of breath. 1. Suspected combined COPD exacerbation and mild HFpEF exacerbation in setting of chronic hypoxic respiratory failure ? Admit under inpatient status to PCU. On home 1 to 2 L nasal cannula. Oxygen saturations in low tomid 90s on 2 L nasal cannula in the ED but dropped to the mid 80s with exertion. Chest x-ray with cardiomegaly and mild vascular congestion. Upper airway wheezing noted on exam. Notably patient has history of HFrEF and last echo in our system showed EF to 20 to 25% in 2017 with global dysfunction. Has had recovery of ejection fraction and echo at outside hospitalon 05/07 showed EF 60%, moderate tosevere pulmonary hypertension. Will repeat echo here given her presentation. Suspect patient may have a degree of volume overload secondary to A-fib with RVR on admit. Will treat with IV steroids andDuoNebs for COPD exacerbation. Infectious workup negative to this point, WBC count normal and afebrile so we will hold on antibiotics for now. Given 1 dose of IV Lasix in the ED and will continue home p.o. Lasix 40 mg twice daily for now. Monitor daily BMP and urine output. 2. Permanent A-fib with RVR ? Follows with Cardiology at [facility]. Was previously on digoxin but this was discontinued during recent hospitalization due to toxicity as noted below. In A- fib with RVR to the 140s on admit here, improved to the 110s with IV Cardizem bolus. Will continue home Lopressor 75 mg twice daily and order IVLopressor 5 mg every 6 hours as needed for heart rate greater than 130. Continue home Eliquis. 3. Elevated lactic acid, improved ? Lactate 3.7 on admit. Suspect secondary to increased work of breathing from mild respiratory distress on admission. Improved to 1.8 on recheck, no need to monitor further. 4. Recent prolonged hospitalization ? Recently hospitalized from 04/27-05/08 at [facility], see HPI for further details. The hospital course was notable for influenza A infection, MSSA pneumonia, NICK and digoxin toxicity. Patient was able to be discharged home without therapy on05/08. Chronic medical conditions: ? Class III obesity: BMI 43 on admit. Complicates hospital course, care and prognosis. ? Hypertension: Continue home Lopressor and lisinopril. ? Hyperlipidemia: Continue home statin. ? Depression: Continue home sertraline. DVT prophylaxis: Not indicated, on Eliquis CODE STATUS: DNR CCA, DNI Expected disposition: Home, 2 to 3 days Total clinical time spent by myself addressing the patient's medical issues, reviewing all the data, and collaborating with patient's care team: 75 minutes. Charges/Coding Visit Charges Inpatient E&M: 42441 Init Hosp L3 06/02/24 1836 Cosigner Signature (if applicable): CC: Dr. Wilbert Umanzor DO; Dr. Kory Ibarra DO~ Signed [facility]03-21-2025 Discharge summary Author Alyce Morel [facility] Note Date/Time June 02, 2024 3:3 1pm [facility] Medical Records Department [address] [place] [address] Emergency Department Summary 06/02/24 MR#: [id number] Acct: [id number] Name: ALTA BAKER Rep #:[id number] : 1950 74 From: Alyce Morel DO PCP: Dr. Kory Ibarra DO Status:AD M IN Location: [place] [address] HPI History of Present Illness Chief Complaint: Shortness of Breath Detail of Chief Complaint: Shortness of breath Informant: patient Narrative Narrative: Patient presents shortness of breath that started 5 days ago. She denies significant cough. She denies chest pain. Denies fever. She has history of COPD and wears 1- 1/2 to 2 L at all times at home. Patient also wears CPAP at night. Patient also with history of A-fib. [facility] Medical History (Updated 06/02/24 @ 13:[address] Alyce Morel DO) Non-smoker CPAP (continuous positive airway pressure) dependence On home oxygen therapy Atrial fibrillation Hypertension Asthma Depression Atrial fibrillation with RVR Anticoagulant long-term use Acute respiratory failure with hypoxia Obstructive sleep apnea Congestive heart failure (CHF) Dyslipidemia HTN (hypertension) Paroxysmal atrial fibrillation Morbid obesity with body mass index of 50.0-59.9 in adult Home Medications ?Medication ?Instructions ?Recorded ?Last Taken ?Type furosemide 40 mg tablet 40 mg PO BID diuretic 07/14/16 History digoxin 125 mcg (0.125 mg) tablet 125 mcg PO DAILY hea rt rate 01/24/16 07/14/16 History (Digox) lisinopril 10 mg tablet 20 mg PO DAILY blood pressur e 01/24/16 07/14/16 History metoprolol tartrate 50 mg tablet 100 mg PO BID blood p ressure 01/24/16 07/14/16 History potassium chloride 20 mEq 20 meq PO DAILY supplement 1 03/25/15 07/14/16 History tablet,extended release(part/cryst) (Klor-Con M) atorvastatin 10 mg tablet 10 mg PO QHS cholesterol 05/0107/13/16 History apixaban 5 mg tablet (Eliquis) 5 mg PO BID blood thinn er 01/18/22 Unknown History albuterol sulfate 0.63 mg/3 mL 0.63 mg (3 mL) inhalati on Q4H PRN 01/22/22 Unknown Rx solution for nebulization shortness of breath or wheez ing #75 mL guaifenesin 1,200 mg tablet, 1,200 mg PO BID cough #10 tabs 01/22/22 Unknown Rx extended release 12 hr (Mucus Relief ER) amoxicillin 875 mg-potassium 1 tab PO BID #14 tabs Unknown Rx clavulanate 125 mg tablet dexamethasone 6 mg tablet 6 mg PO DAILY #7 tabs Unknown Rx fluconazole 200 mg tablet 200 mg PO DAILY #7 tabs 11/14 Unknown Rx amoxicillin 875 mg-potassium 1 tab PO Q12H 10 days #20 tabs 05/25/24 Unknown Rx clavulanate 125 mg tablet folic acid 1 mg tablet 1 mg PO QDAY 05/25/24 Unknow n History mometasone-formoterol HFA 100 inhalation 05/25/24 Unkn own History mcg-5 mcg/actuation aerosol inhaler (Dulera) sertraline 50 mg tablet 50 mg PO QHS mental health 0 05/25/24 Unknown History tiotropium bromide 2.5 inhalation DAILY 05/25/24 Un known History mcg/actuation mist for inhalation (Spiriva Respimat) Allergy/AdvReac Type Severity Reaction Status Date / Time bee venom protein (honey Allergy Other Verified 05/25/24 15:20 bee) (bee sting) Opioids - Morphine Analogues Allergy Other Verified 05/25/24 15:20 (narcotics) Tetanus Vaccines and Toxoid Allergy Unknown Verified 05/25/24 15:20 (Tetanus Vaccines & Toxoid) Family History Grandmother Breast cancer Father CVA (cerebral vascular accident) Surgical History H/O oophorectomy History of appendectomy Social History household members: children and none housing: house number of children: 2 current occupational status: retired pets and animals: Yes (2 dogs/2 cats) Smoking Status: Never smoker alcohol intake: never substance use type: does not use ROS ROS ED Review of Systems ROS Unobtainable: other Constitutional Constitutional ED: Reports lethargy; Denies chills, fever(s), sweats or weight loss Eyes Eyes: Denies blurry vision, change in vision or diplopia ENT ENT ED: Denies rhinorrhea or sore throat Cardiovascular Cardiovascular: Denies chest pain, orthopnea or racing heartbeat Respiratory/Chest Respiratory/Chest: Reports dyspnea and dyspnea on exertion; Denies cough, orthopnea or sputum Gastrointestinal Gastrointestinal: Denies abdominal pain, diarrhea, nausea or vomiting Genitourinary Genitourinary ED: Denies dysuria, hematuria or urinary frequency Musculoskeletal Musculoskeletal: Denies arthralgias, back pain, myalgias or neck pain Integumentary Denies abscess, Abrasions or rash Neurologic Neurologic: Denies headache(s) or weakness Psychiatric Psychiatric: Denies anxiety, depression or suicidal thoughts Endocrine Endocrinology: Denies polydipsia, polyphagia or polyuria Hematologic/Lymphatic Hematologic/Lymphatic: Denies easy bleeding, easy bruising or lymphadenopathy Allergic/Immunologic Allergic/Immunologic ED: Denies mouth swelling, tongue swelling or urticaria EXAM Physical Exam Const Vital Signs: 06/02/24 10:33 06/02/24 10:36 06/02/24 10:43 Temperature 97.6 F L Temperature Source Temporal Pulse Rate 146 H 144 H Respiratory Rate 18 28 H Respiratory Effort Respiratory Depth Respiratory Pattern Tachypnea Blood Pressure 134/92 H Blood Pressure Mean 106 Pulse Ox 100 94 100 Oxygen Delivery Method Bi-pap Bi-pap Fraction of Inspired Oxygen (FIO2) 40 30 06/02/24 11:47 06/02/24 11:48 06/02/24 12:47 Temperature 98.0 F Temperature Source Temporal Pulse Rate 97 103 H Respiratory Rate 21 H 20 H Respiratory Effort Short of Breath Labored Respiratory Depth Shallow Respiratory Pattern Tachypnea Blood Pressure 122/67 H 121/71 H Blood Pressure Mean 85 87 Pulse Ox 99 96 Oxygen Delivery Method Bi-pap Bi-pap Bi-pap Fraction of Inspired Oxygen (FIO2) Positive well nourished and well developed General Appearance ED: well developed and NAD HEENT Reports TM's clear and moist mucous membranes normocephalic and atraumatic; Negative for trauma or tenderness Tympanic Membrane ED: Yes TM's clear Eyes PERRL and EOMs intact bilaterally General Eye ED: Negative for pale conjunctiva or scleral icterus Neck no lymphadenopathy, supple and no JVD General: Negative for tenderness Chest Wall inspection of chest normal and palpation of chest normal Chest: Negative for tenderness Resp normal respiratory effort and clear to auscultation bilaterally Effort and Inspection: Negative for respiratory distress or pain with movement Auscultation: Negative for rhonchi, wheezes or diminished lung sounds Cardio regular rate, regular rhythm, S1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 reach, left in chair, gait belt, nurse notified, and no alarms engaged upon entry Restraints: No Education Education Given To: patient Education Provided: OT Role, Plan of Care, Precautions, ADL Adaptive Strategies, Transfer Training,Energy Conservation, Equipment, Fall Prevention Education, Discharge Recommendations, and BreathingTechniques Education Method: Verbal Barriers to Learning: None Education Outcome: Verbalized Understanding and Continued Education Needed Goals Patient Stated Goal: To go home. Encounter Problems Encounter Problems (Active) Balance Patient will maintain dynamic standing balance for 10+ minutes with modified independence in order to demonstrate decreased risk of falling. Start: 05/08/24 Expected End: 06/05/24 Cognition Patient will demonstrate good safety awareness with the use of FWW with no more than no cues Start: 05/08/24 Expected End: 06/05/24 Dressings Lower Extremities Patient will dress lower body Mod I with use of AE Start: 05/08/24 Expected End: 06/05/24 Grooming Patient will complete daily grooming tasks with Mod I Start: 05/08/24 Expected End: 06/05/24 Transfers Patient will complete functional transfer with least restrictive device with modified independence in order to prepare for ambulation. Start: 05/08/24 Expected End: 06/05/24 Patient will perform bed mobility with modified independence in order to improve independence and prepare for out of bed mobility. Start: 05/08/24 Expected End: 06/05/24 Therapy Time Individual Co-Treatment Co-Evaluation Time In 0852 Time Out 0908 Minutes 16 Kalia Humphrey OT Patient's Occupational Therapy Plan of Care supervision is transferred to a [facility] Occupational Therapist. Goals and/or treatment plan was established in collaboration with patient/family/other representatives. * Betsey Blount, DO - 05/08/2024 5:40 AM EST ICU Progress Note Name: Alta Baker : 1950(74 y.o.) Date: 05/08/24 Team: MICU Attending: Dr. Jeffers Subjective: Hospital Summary: 74 y.o female PMHX significant for Permanent Afib, HFpEF 66% 02/17/24, severe pHTN, COPD, HTN presented to the ED with complaint of generalized weakness, N/V and intermittent diarrhea. Initially admitted to floor on 04/28 for concerns for digoxin toxicity and NICK, transferred to ICU on 05/02 for increased work of breathing and need for NIV. Digoxin held. Pt was started on broad spectrum abx with cefepime and vanc with infectious workup significant for MSSA PNA and influenza A. Additionally, with thrombocytopenia in setting of folate deficiency. Finished course of tamiflu and treated for total of7 days of Ancef for MSSA. Stable for the floor on 05/05 on nasal cannula with BiPAP overnight. Seen by PT, recommending home with assist. Unable to be transferred to the floor due to lack of bed availability. Interval Events: No acute events overnight. Wore her BiPAP overnight. No new complaints this morning. Denies shortness of breath, cough is improved. Patient states she feels well enough to go home. Vitals afebrile, BP 137/84, HR 126, SpO2 95% on room air. Scheduled Meds:apixaban, 5 mg, Oral, BID atorvastatin, 10 mg, Oral, Nightly ceFAZolin, 1,000 mg, IntraVENous, q8h cetirizine, 5 mg, Oral, Nightly folic acid, 1 mg, Oral, Daily levalbuterol, 1.25 mg, Nebulization, TID metoprolol tartrate, 75 mg, Oral, BID miconazole, , Topical, BID mometasone-formoterol, 2 puff, Inhalation, BID pantoprazole, 40 mg, Oral, qAM AC predniSONE, 40 mg, Oral, Daily sertraline, 50 mg, Oral, Daily tiotropium, 2 puff, Inhalation, Daily Continuous Infusions: Objective: Last Vitals: BP MAP 137/84 (05/07/241899) 100 (05/07/241899) Arterial BP MAP Temp 36.8 C (98.2 F) (05/07/241899) Pulse (!) 126 (05/07/242145) Resp 19 (05/07/242037) SpO2 95 % (05/07/242145) Weight 98.3 kg (216 lb 11.4 oz) (05/08/24422) BMI Body mass index is 43.77 kg/m . I/O: 05/07 0700 - 05/08 658 In: 728 [P.O.:450; I.V.:278] Out: 400 [Urine:400] Ventilator: Resp Rate (Set): 18 FiO2 (%): 30 % Inspiratory Time (sec): 0.9 sec Oxygen Delivery: O2 Flow Rate (L/min): 2 L/min Invasive Lines / Tubes / Drains: Peripheral IV 04/30/24 Right Forearm (Active) Number of days: 5 Peripheral IV 05/02/24 Anterior;Distal;Right;Upper Arm (Active) Number of days: 3 External Urinary Catheter (Active) Number of days: 2 Central Line Indication: NA - patient does not have a central line Shukla Indications: NA - patient does not have a Shukla catheter Restraints: NA - patient is not restrained. Wounds: Constitutional: General Appearance [x]WDWN []Obese []Cachectic []Thin []Ill Eyes: Inspection of Pupils/Irises Pupils round and react: []Yes []No Sclera: []Icteric []Non-Icteric Inspection of Conjunctiva/Lids Conjunctiva: []Injected []Non-Injected Lids: []Intact []Lesion Present ENT/Mouth: External Inspection of ears/nose [] Normal [] Scar/Lesion/Mass Inspection of teeth/lips/gums Dentition: [][place] Teeth []Dentures Lips/Gums: []Intact []Lesion Present Mucosa: [][place] []Moist []Dry Neck: External Appearance Overall Appearance: []Normal []Lesion/Mass/Crepitus Present Trachea midline: []Yes []No Thyroid []Normal []Enlarged []Tender []Mass []Absent Respiratory: Respiratory effort []Labored [x]Non-Labored [] Mechanically-Ventilated Auscultation []Clear []Crackles []Wheezes [x]Rhonchi Cardiovascular: Auscultation Rate: [x]Regular []Irregular []Tachycardia []Bradycardia Rhythm: [x]Regular []Irregular Murmur: []Present []Absent Extremities Peripheral Edema: [x]Present - 1+ edema []Absent Varicosities: []Present []Absent Gastrointestinal: Abdomen Palpation: [x]Soft []Firm []Tender [x]Non-Tender []Distended [x]Non-distended Mass: []Present []Absent Bowel Sounds: []Present []Absent Hernia: []Present []Absent Liver/Spleen: []Hepatosplenomegaly []Organomegaly Absent Musculoskeletal: Inspection of Digits and Nails Cyanosis: []Present []Absent Clubbing: []Present []Absent Ischemia: []Present []Absent Infection: []Present []Absent Extremities CLARKE Equally: Except ([]RUE []RLE []LUE []LLE) Strength/Tone: Intact and Normal ([]RUE []RLE []LUE []LLE) Skin: Inspection [x]Normal []Rash []Lesion []Ulcer Palpation [x]Warm []Cool []Dry []Clammy []Nodules []Induration []Skin-tightening Cap-Refill: [] <3 sec [] >3 seconds (delayed) Neurologic: GCS EYE: 4 - Opens spontaneously GCS MOTOR: 6 - Obeys commands for movement GCS VERBAL: 5 - Oriented to person, place, time Total GCS: 15 [x] Sensation grossly intact Psych: Mental Status Alert: [x]Yes [] No Oriented: []x0 []X1 []X2 [x]x3 Mood/Affect [x]Normal []Flat []Agitated []Depressed []Anxious []Calm []Sedated []NAD Select Labs within last 24 hours- BMP: Recent Labs 05/06/24 03405/07/24 0422 05/08/24 0230 NA 144 142 143 K 4.4 5.1 4.2 CL 109* 108* 106 CO2 30 30 32* BUN 21 19 16 CREATININE 0.68 0.65 0.62 CALCIUM 8.9 9.2 9.2 MG 2.0 1.8 1.6 PHOS 2.1* 2.6 1.8* LFTs:No results for input(s): AST, ALT, PROT, ALBUMIN, BILITOT, BILIRUBINU, ALKPHOS, LIPASE in the last 72 hours. Glucose: Recent Labs 05/06/24 03405/07/24 0422 05/08/24 0230 GLUCOSE 123* 113 94 Procal: No results for input(s): PROCAL in the last 72 hours. CBC: Recent Labs 05/06/2434405/07/24 0534 05/08/24 0230 WBC 9.2 11.4* 14.1* HGB 8.4* 8.7* 7.7* HCT 27.6* 28.9* 25.2* PLT 62* 70* 66* MCV 92.0 92.6 91.0 RDW 14.8 15.1* 14.9 ABGs: No results for input(s): PHART, NAG4SZB, PO2ART, MDT6HZY, SO2ART, V8HYATAT in the last 72 hours. Lactic Acid: No results for input(s): LACTATE in the last 72 hours. INR: No results for input(s): INR in the last 72 hours. Cardiac Injury Profile: No results for input(s): CKTOTAL, CKMB, TROPONINI in the last 72 hours. Labs in Last 3 months: Lab Results Component Value Date TSH 1.29 04/28/2024 INR 1.3 (H) 05/02/2024 Microbiology- Urine Cx: Lab Results Component Value Date URINECX 04/28/2024 Multiple species present; probable contamination; repeat suggested Blood Cx: Lab Results Component Value Date BLOODCX No growth at 5 days 02/15/2024 BLOODCX No growth at 5 days 02/15/2024 Sputum Cx: Lab Results Component Value Date RESPCULT Few respiratory mei present. 05/04/2024 RESPCULT Rare Staphylococcus aureus (A) 05/04/2024 Gram Stain: Lab Results Component Value Date LABGRAM Few Epithelial cells per low power field 05/04/2024 LABGRAM 05/04/2024 Many Polymorphonuclear leukocytes per low power field LABGRAM No organisms seen 05/04/2024 PNA PCR: Lab Results Component Value Date HUMANMETAPNE Not Detected 05/04/2024 COVID19: No results found for: COVID19 Legionella Ag: Lab Results Component Value Date LEGIONELLAPN Not Detected 05/04/2024 Strep Ag: No results for input(s): STREPPNEUMO in the last 72 hours. Imaging- No new imaging today Assessment and Plan: Principal Problem: Generalized weakness Active Problems: Severe malnutrition (CMS/HCC) (HCC) Assessment: Acute exacerbation of COPD in setting of FluA and MSSA PNA Normocytic Anemia Thrombocytopenia 2/2 folate deficiency HFpEF LVEF 66% 02/17/24 Hx of Permanent Atrial Fibrillation on DOAC Hx of Pulmonary HTN Hx of HTN Hx of Depression Hx of compression fractures Hx of Left adrenal gland 4 cm mass Acute Hypercapnic Respiratory Failure -resolved NICK - resolved Hyperkalemia - resolved Plan: Neuro/Spine Hx of depression Deconditioning -Continue sertraline -PT/OT - home with assist PRN Cardiovascular HFpEF LVEF 66% 02/17/24 Permanent Atrial Fibrillation on DOAC Pulmonary HTN HTN/HLD -HDS -Continue metoprolol 75mg BID for rate control -Continue Eliquis, atorvastatin -Repeat echo ordered to assess for pulmonary htn Pulmonary Acute exacerbation of COPD in setting of FluA and MSSA PNA Pulmonary hypertension -O2 requirement: SpO2 95% on room air -Prednisone 40mg x7 days, will begin taper with prednisone 30mg x3 days, followed by 20mg x3 days, and 10mg x3 days -s/p 5 days of Tamiflu 75mg BID -Was on ancef Q8hr for 7 day course of abx for MSSA pneumonia - can switch to Augmentin for additional 2 days -Spiriva daily and Xopenex q4h and dulera -Robitussin prn -Follows with cardiology for pHTN management -CPAP at night -Ambulatory pulse ox today to assess home O2 needs and plan to discharge today -Will need pulm outpatient follow up FEN/GI - Diet: Regular - Continue pantoprazole - Daily BMP Endo Hx of Left adrenal gland 4 cm mass Unexplained weight loss -Outpatient workup for adrenal mass Heme Normocytic Anemia Thrombocytopenia 2/2 folate deficiency - Hgb: 7.7 stable - Workup for thrombocytopenia - hep-c negative - HIV negative - Folate 3.7, 05/03 - B12 wnl - peripheral blood smear pending - renal cystic mas and adrenal mass to be worked up - Replete folate 1g daily - Daily CBC - Continue DOAC with+PLT trend ID FluA and MSSA PNA -MSSA positive on pneumonia PCR - Respiratory cultures from 05/04 did grow rare staph aureus -Influenza A positive -s/p 5 days of Tamiflu 75mg BID -Was on ancef Q8hr for 7 day course of abx for MSSA pneumonia - can switch to Augmentin for additional 2 days -GI, C. Diff, and remainder resp panel negative Lines/Devices: - R PIV x2 - External catheter GI Prophylaxis: Pantoprazole PO DVT Prophylaxis: Full anticoagulation Disposition: Discharge to home pending home O2 eval Critical Care Time: 30 min Total critical care time caring for this patient with life threatening, unstable organ failure, including direct patient contact, management of life support systems, review of data including imaging and labs, discussions with other team members and physicians, excluding procedures. Cosigned by Eileen Jeffers MD at 05/08/2024 4:08 PM EST Associated attestation - Eileen Jeffers MD - 05/08/2024 4:08 PM EST I have personally performed a face to face diagnostic evaluation on this patient today on 05/08/24.Labs, imaging studies, and electronic medical record notes on [facility] have been reviewed by me. This note documented and discussed by the [x]special police officer []Fellow [] LEROY reflects my history, exam and medical decision making. I have reviewed and agree with the care plan. Changes were made in the orders as necessary. ROS documentation was reviewed and negative unless otherwise stated in the HPI. My history, exam, assessment and plan are as follows: Time spent for coordination of care: a subsequent visit: 50 minutes (Level III) Awake, in bed Resp unlabored +exp wheezes and rhonchi Heart RRR Acute resp failure with Influenza and MSSA pneumonia Chronic resp failure, on home O2, CPAP Chronic Anemia, thrombocytopenia Taper steroids Home O2 eval Lasix po daily Transfer vs discharge planning * Chelsey Dasilva MD - 05/07/2024 9:31 AM EST I have personally performed a [id number] diagnostic evaluation on this patient on date of service05/07/2024 . History, labs, imaging studies, and electronic medical record have been reviewed by me. This notedocumented by the [x]bathhouse keeper []LEROY reflects my history, exam, and medical decision making. I have reviewed and agree with the care plan. Changes were made in the orders as necessary. ROS documentation was reviewed and negative unless otherwise stated in HPI. Additional pertinent interval history, ROS, and physical exam findings: 74 yr F copd, afib on digoxin, depression, HTN, nick, now admitted initially with Digoxin toxicity, hospital stay complicated by NICK and then she developed ac resp failure sec to influenza infection and MSSA pneumonia. ROS weight loss 05/04 Nocturnal bipap Weaned to 2lnc Afebrile No conversational dyspnea Persistent thrombocytopenia Folate :3.7 , B12 pending 05/05 Mssa pos on pneumonia pcr Nocturnal bipap Nasal [id number] Balance: pos 1L Wheeze pos 05/06 Oxygenating well on ra at rest Cough improving Balance: pos 3L Thrombocytopenia 05/07 No issues Balance: pos 4L Thrombocytopenia improving Pt ot eval pending Assessment: Ac on ch hypercapnic respiratory failure Digoxin toxicity NICK Hyperkalemia Thrombocytopenia-improvement HfpEF / Pulmonary hypertension Influenza A Decompensated heart failure Lt adrenal nodule Rt renal cystic mass Folate deficiency Unexplained weight loss Plan: Ancef ends on 05/10 Tamiflu end 05/07 TTE Bronchodilator, dulera, spira, prednisone taper ends on 05/08 Folic acid replacement Resume home meds Work up of nodule, cystic mass and weight loss to be completed after resolution of acute illness PT OT Transfer to medicine service * Betsey S Blount, DO - 05/07/2024 5:07 AM EST ICU Progress Note Name: Alta Baker : 1950(74 y.o.) Date: 05/07/24 Team: MICU Attending: Dr. Dasilva Subjective: Hospital Summary: 74 y.o female PMHX significant for Permanent Afib with tachycardia mediated CM HFpEF 66% 02/17/24, Pulmonary HTN, COPD, depression, HTN presented to the ED with complaint of generalized weakness, N/V and intermittent diarrhea. Initially admitted to floor on 04/28 for concerns for digoxin toxicity andAKI, transferred to ICU on 05/02 for increased work of breathing and need for NIV. Digoxin held. Patient on HFNC 4L. ABG revealed significant hypercapnia (PCO2 71.3), acute respiratory acidosis (pH 7.13). Started on cefepime and vancomycin for broad spectrum coverage, prednisone x5 days. CXR showed enlarged cardiac silhouette. Eliquis held in setting of declining Hgb and plts. Resp yu grossly negative except for positive MSSA and FluA. Thrombocytopenic yu significant for profound folate deficiency. Treated with Tamiflu, prednisone 40mg x5 days. Patient afebrile and stable, down to 2L NC with Xopenex and Spiriva saturating well and able to ambulate with assistance. Now stable for GMF transferwith night BiPAP and completion of abx and prednisone and continuation of renal and adrenal mass workup in relation to her 50lbs wt loss. Repeat PNA PCR +MSSA and ancef was restarted for additional 5days of treatment. Interval Events: No acute events overnight. This morning, she has no complaints and states she feels well. Denies any shortness of breath. Cough is still present but improving. Vitals afebrile, BP 146/59, HR 90, RR 21, SpO2 100% on 2L nasal cannula. Scheduled Meds:apixaban, 5 mg, Oral, BID atorvastatin, 10 mg, Oral, Nightly ceFAZolin, 1,000 mg, IntraVENous, q8h cetirizine, 5 mg, Oral, Nightly folic acid, 1 mg, Oral, Daily levalbuterol, 1.25 mg, Nebulization, TID metoprolol tartrate, 75 mg, Oral, BID miconazole, , Topical, BID mometasone-formoterol, 2 puff, Inhalation, BID oseltamivir, 75 mg, Oral, BID pantoprazole, 40 mg, Oral, qAM AC predniSONE, 40 mg, Oral, Daily sertraline, 50 mg, Oral, Daily tiotropium, 2 puff, Inhalation, Daily Continuous Infusions: Objective: Last Vitals: BP MAP 146/59 (05/07/24 0400) 85 (05/07/24 0400) Arterial BP MAP Temp 36.4 C (97.5 F) (05/07/24 040) Pulse 90 (05/07/24 0400) Resp 21 (05/07/24 040) SpO2 100 % (05/07/24399) Weight 96.5 kg (212 lb 11.9 oz) (05/05/24 0600) BMI Body mass index is 42.97 kg/m . I/O: 05/06 0700 - 05/07 0659 In: - Out: 850 [Urine:850] Ventilator: Resp Rate (Set): 18 FiO2 (%): 30 % Inspiratory Time (sec): 0.9 sec Oxygen Delivery: O2 Flow Rate (L/min): 2 L/min Invasive Lines / Tubes / Drains: Peripheral IV 04/30/24 Right Forearm (Active) Number of days: 5 Peripheral IV 05/02/24 Anterior;Distal;Right;Upper Arm (Active) Number of days: 3 External Urinary Catheter (Active) Number of days: 2 Central Line Indication: NA - patient does not have a central line Shukla Indications: NA - patient does not have a Shukla catheter Restraints: NA - patient is not restrained. Wounds: Constitutional: General Appearance [x]WDWN []Obese []Cachectic []Thin []Ill Eyes: Inspection of Pupils/Irises Pupils round and react: []Yes []No Sclera: []Icteric []Non-Icteric Inspection of Conjunctiva/Lids Conjunctiva: []Injected []Non-Injected Lids: []Intact []Lesion Present ENT/Mouth: External Inspection of ears/nose [] Normal [] Scar/Lesion/Mass Inspection of teeth/lips/gums Dentition: [][place] Teeth []Dentures Lips/Gums: []Intact []Lesion Present Mucosa: [][place] []Moist []Dry Neck: External Appearance Overall Appearance: []Normal []Lesion/Mass/Crepitus Present Trachea midline: []Yes []No Thyroid []Normal []Enlarged []Tender []Mass []Absent Respiratory: Respiratory effort []Labored [x]Non-Labored [] Mechanically-Ventilated Auscultation []Clear []Crackles [x]Wheezes []Rhonchi Cardiovascular: Auscultation Rate: [x]Regular []Irregular []Tachycardia []Bradycardia Rhythm: [x]Regular []Irregular Murmur: []Present []Absent Extremities Peripheral Edema: []Present [x]Absent, but +JVD Varicosities: []Present []Absent Gastrointestinal: Abdomen Palpation: [x]Soft []Firm []Tender [x]Non-Tender []Distended [x]Non-distended Mass: []Present []Absent Bowel Sounds: []Present []Absent Hernia: []Present []Absent Liver/Spleen: []Hepatosplenomegaly []Organomegaly Absent Musculoskeletal: Inspection of Digits and Nails Cyanosis: []Present []Absent Clubbing: []Present []Absent Ischemia: []Present []Absent Infection: []Present []Absent Extremities CLARKE Equally: Except ([]RUE []RLE []LUE []LLE) Strength/Tone: Intact and Normal ([]RUE []RLE []LUE []LLE) Skin: Inspection [x]Normal []Rash []Lesion []Ulcer Palpation [x]Warm []Cool []Dry []Clammy []Nodules []Induration []Skin-tightening Cap-Refill: [] <3 sec [] >3 seconds (delayed) Neurologic: GCS EYE: 4 - Opens spontaneously GCS MOTOR: 6 - Obeys commands for movement GCS VERBAL: 5 - Oriented to person, place, time Total GCS: 15 [x] Sensation grossly intact Psych: Mental Status Alert: [x]Yes [] No Oriented: []x0 []X1 []X2 [x]x3 Mood/Affect [x]Normal []Flat []Agitated []Depressed []Anxious []Calm []Sedated []NAD [facility] Labs within last 24 hours- BMP: Recent Labs 05/05/24 0439 05/06/24 0345 NA 142 144 K 5.0 4.4 CL 109* 109* CO2 28 30 BUN 26* 21 CREATININE 0.77 0.68 CALCIUM 8.6* 8.9 MG 1.7 2.0 PHOS 2.1* 2.1* LFTs:No results for input(s): AST, ALT, PROT, ALBUMIN, BILITOT, BILIRUBINU, ALKPHOS, LIPASE in the last 72 hours. Glucose: Recent Labs 05/05/24 0439 05/06/24 034 GLUCOSE 114 123* Procal: Recent Labs 05/04/24 1545 PROCAL 0.11* CBC: Recent Labs 05/04/24 1008 05/05/24 0439 05/06/24 034 WBC -- 6.8 9.2 HGB 9.6 8.4* 8.4* HCT -- 28.0* 27.6* PLT -- 57* 62* MCV -- 92.7 92.0 RDW -- 15.0 14.8 ABGs: Recent Labs 05/04/24 1008 [id number] 2L Lactic Acid: No results for input(s): LACTATE in the last 72 hours. INR: No results for input(s): INR in the last 72 hours. Cardiac Injury Profile: No results for input(s): CKTOTAL, CKMB, TROPONINI in the last 72 hours. Labs in Last 3 months: Lab Results Component Value Date TSH 1.29 04/28/2024 INR 1.3 (H) 05/02/2024 Microbiology- Urine Cx: Lab Results Component Value Date URINECX 04/28/2024 Multiple species present; probable contamination; repeat suggested Blood Cx: Lab Results Component Value Date BLOODCX No growth at 5 days 02/15/2024 BLOODCX No growth at 5 days 02/15/2024 Sputum Cx: Lab Results Component Value Date RESPCULT Few respiratory mei present. 05/04/2024 RESPCULT Rare Staphylococcus aureus (A) 05/04/2024 Gram Stain: Lab Results Component Value Date LABGRAM Few Epithelial cells per low power field 05/04/2024 LABGRAM 05/04/2024 Many Polymorphonuclear leukocytes per low power field LABGRAM No organisms seen 05/04/2024 PNA PCR: Lab Results Component Value Date HUMANMETAPNE Not Detected 05/04/2024 COVID19: No results found for: COVID19 Legionella Ag: Lab Results Component Value Date LEGIONELLAPN Not Detected 05/04/2024 Strep Ag: No results for input(s): STREPPNEUMO in the last 72 hours. Imaging- No new imaging today Assessment and Plan: Principal Problem: Generalized weakness Active Problems: Severe malnutrition (CMS/HCC) ([facility]) Assessment: Acute exacerbation of COPD in setting of FluA and MSSA PNA Normocytic Anemia Thrombocytopenia 2/2 folate deficiency HFpEF LVEF 66% 02/17/24 Hx of Permanent Atrial Fibrillation on DOAC Hx of Pulmonary HTN Hx of HTN Hx of Depression Hx of compression fractures Hx of Left adrenal gland 4 cm mass Acute Hypercapnic Respiratory Failure -resolved NICK - resolved Hyperkalemia - resolved Plan: Neuro/Spine Hx of depression Deconditioning -Continue sertraline -PT/OT Cardiovascular HFpEF LVEF 66% 02/17/24 Permanent Atrial Fibrillation on DOAC Pulmonary HTN HTN/HLD -HDS -At MAP goal >65 -Continue metoprolol 75mg BID for rate control -Continue Eliquis, atorvastatin -Repeat echo ordered to assess for pulmonary htn Pulmonary Acute exacerbation of COPD in setting of FluA and MSSA PNA Pulmonary hypertension - O2 requirement: 2L satting 100% - Prednisone 40mg x7 days (end date 05/08) - Spiriva daily and Xopenex q4h and dulera - Robitussin prn -Will need outpatient pulmonology referral for pHTN management -CPAP at night FEN/GI - Diet: Regular - Continue pantoprazole - Daily BMP Endo Hx of Left adrenal gland 4 cm mass Unexplained weight loss -Outpatient workup for adrenal mass Heme Normocytic Anemia Thrombocytopenia 2/2 folate deficiency - Hgb: 8.7 stable - Workup for thrombocytopenia - hep-c negative - HIV negative - Folate 3.7, 05/03 - B12 wnl - peripheral blood smear pending - renal cystic mas and adrenal mass to be worked up - Replete folate 1g daily - Daily CBC - Continue DOAC with+PLT trend ID FluA and MSSA PNA - MSSA positive on pneumonia PCR - Respiratory cultures from 05/04 did grow rare staph aureus - Influenza A positive - Tamiflu 75mg BID x5 days ending 05/07 - Continue 1g Ancef q8 for 7 day course ending 05/10 - GI, C. Diff, and remainder resp panel negative Lines/Devices: - R PIV x2 - External catheter GI Prophylaxis: Pantoprazole PO DVT Prophylaxis: Full anticoagulation Disposition: Transfer to [facility] Critical Care Time: 30 min Total critical care time caring for this patient with life threatening, unstable organ failure, including direct patient contact, management of life support systems, review of data including imaging and labs, discussions with other team members and physicians, excluding procedures. Cosigned by Chelsey Dasilva MD at 05/07/2024 2:56 PM EST Associated attestation - Chelsey Dasilva MD - 05/07/2024 2:56 PM EST I have personally performed a [id number] diagnostic evaluation on this patient on date of service05/07/2024 . History, labs, imaging studies, and electronic medical record have been reviewed by me. This notedocumented by the [x]bathhouse keeper []LEROY reflects my history, exam, and medical decision making. I have reviewed and agree with the care plan. Changes were made in the orders as necessary. ROS documentation was reviewed and negative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 enter/modify frequency of treatment order in EMR/EHR to match this RAP evaluation. Based on this RAP evaluation the following therapy is being initiated: At the following frequency: TID Comments: Thank you for involving Respiratory in the care of this patient, * MARIUSZ Rodarte CNP - 05/05/2024 11:19 AM EST Telemetry check -Per note cards signed off 05/04/24 -Reviewed tele revealing permanent atrial fibrillation 70-90 bpm. No events X 24 hours. Platelets improving 57 today -Recommend resuming eliquis once Hgb and Platelets are stable. -Continue metoprolol with parameters. -Follow up is scheduled with CAMPUS RECRUITING COORDINATOR at [facility]. * Robyn Astorga MD - 05/05/2024 10:44 AM EST [facility] Progress Note Subjective/ 74 y.o. year old female who we are seeing in consultation for NICK. 05/02: Patient transferred to ICU in evening d/t acute respiratory failure with hypercapnia for NIV support Seen and examined in ICU Blood pressures stable Remains afebrile. Non-oliguric Intermittently tachycardic. Continues to require oxygen supplement. ROS Unable to be completed 2/[address] No interval changes to [facility]. All interval notes/labs/imaging reviewed. Objective/ Vitals: 05/05/24 0300 05/05/24 0400 05/05/24 0600 05/05/24 0627 BP: 126/87 128/57 BP Location: Right arm Patient Position: Lying Pulse: 90 81 97 Resp: (!) 31 23 20 Temp: (!) 35.9 C (96.7 F) TempSrc: Temporal SpO2: 100% (!) 87% 98% Weight: 96.5 kg (212 lb 11.9 oz) Height: 24HR INTAKE/OUTPUT: Intake/Output Summary (Last 24 hours) at 05/05/2024 1044 Last data filed at 05/05/2024 0600 Gross per 24 hour Intake 960 ml Output 275 ml Net 685 ml Physical Exam Constitutional: Appearance: She is ill-appearing. HENT: Head: Normocephalic and atraumatic. Mouth/Throat: Mouth: Mucous membranes are dry. Eyes: General: No scleral icterus. Cardiovascular: Rate and Rhythm: Normal rate. Rhythm irregular. Pulmonary: Breath sounds: Wheezing present. Comments: PPM in place Abdominal: General: Bowel sounds are normal. Palpations: Abdomen is soft. Musculoskeletal: Right lower leg: No edema. Left lower leg: No edema. Skin: General: Skin is warm and dry. Neurological: Comments: Currently resting Psychiatric: Comments: GUERLINE Scheduled Meds:[Held by provider] apixaban, 5 mg, Oral, BID atorvastatin, 10 mg, Oral, Nightly ceFAZolin, 1,000 mg, IntraVENous, q8h cetirizine, 5 mg, Oral, Nightly folic acid, 1 mg, Oral, Daily levalbuterol, 1.25 mg, Nebulization, q4h WA metoprolol tartrate, 75 mg, Oral, BID miconazole, , Topical, BID oseltamivir, 75 mg, Oral, BID predniSONE, 40 mg, Oral, Daily sertraline, 50 mg, Oral, Daily sodium chloride, 4 mL, Nebulization, BID tiotropium, 2 puff, Inhalation, Daily Continuous Infusions: PRN Meds:.PRN medications: acetaminophen OR acetaminophen, guaiFENesin- dextromethorphan, loperamide, ondansetron ODT OR ondansetron, polyethylene glycol (PEG) 3350 Data/ Recent Labs 05/03/24 1310 05/04/24 0303 05/04/24 1008 05/05/24 0439 WBC 7.3 6.9 -- 6.8 HGB 9.4* 9.3 8.2* 9.6 8.4* HCT 32.1* 26.7* -- 28.0* MCV 95.3 90.8 -- 92.7 PLT 44* 46* -- 57* Recent Labs 05/03/24 1310 05/04/24 0303 05/05/24 0439 NA 145 143 142 K 4.8 4.1 5.0 CL 111* 109* 109* CO2 29 27 28 GLUCOSE 116* 95 114 PHOS -- 2.1* 2.1* MG -- 1.6 1.7 BUN 19 23 26* CREATININE 0.89 0.93 0.77 Imaging: reviewed Renal US 04/28/2024: Findings: Multiple static dickey scale and color Doppler sonographic images of the bilateral kidneys are submitted for interpretation. The right kidney measures 9.7 x 6.5 x 5 cm and demonstrates a suspected small lower pole cyst measuring 1.6 x 1.3 x 1.4 cm.. The left kidney measures 9.4 x 4.8 x 5.6 cm and demonstrates a grossly normal sonographic appearance. The bladder is incompletely distended, therefore limited in assessment. IMPRESSION: Impression: No hydronephrosis or renal stones. Incidental gallstone in the gallbladder. Large left adrenal nodule measures 5.2 x 3.4 x 3.7 cm, not representing an adenoma by CT (performedyesterday). Follow-up recommended. Right renal lesion has appearance of a cyst on this exam, however definitive through transmission not demonstrated. The lesion is of increased density on CT performed yesterday, measuring 54 Hounsfield units. Proteinaceous cyst is thought to be most likely. Follow-up recommended to document stability. Urologic consultation for follow-up. Assessment/ NICK 2/2 volume depletion in setting of poor po intake + N/V/D N17.9: resolved Hyperkalemia E87.5 Acute hypercapnic respiratory failure J96.02 Infulenza A J10.1 Chronic HFpEF I50.32 Thrombocytopenia N/V/D R11.2, R19.7 Compression fracture of L4 vertebra NAGMA: resolved Hypernatremia E87.0: resolved Plan/ -Renal function fluctuating near baseline. baseline ~ 0.6-0.8 -Sodium levels fluctuating, back wnl, continue to monitor trend as patient currently NPO -Hyperkalemia resolved status post Lasix. Continue to trend. -Need strict I&Os -Defer diuretic dosing to cardiology -Ok for additional IV lasix from renal standpoint to help wean down O2 requirements -Thrombocytopenia: Rx per primary -IV abx per ID: on cefepime + Tamiflu. Monitor neurological status given cefepime. -Rest of management per ICU Will follow intermittently through the weekend. Please call with questions. * Chelsey Dasilva MD - 05/05/2024 10:36 AM EST I have personally performed a [id number] diagnostic evaluation on this patient on date of service05/05/2024 . History, labs, imaging studies, and electronic medical record have been reviewed by me. This notedocumented by the [x]bathhouse keeper []LEROY reflects my history, exam, and medical decision making. I have reviewed and agree with the care plan. Changes were made in the orders as necessary. ROS documentation was reviewed and negative unless otherwise stated in HPI. Additional pertinent interval history, ROS, and physical exam findings: 74 yr F copd, afib on digoxin, depression, HTN, nick, now admitted initially with Digoxin toxicity, hospital stay complicated by NICK and then she developed ac resp failure sec to influenza infection and MSSA pneumonia. ROS weight loss 05/04 Nocturnal bipap Weaned to 2lnc Afebrile No conversational dyspnea Persistent thrombocytopenia Folate :3.7 , B12 pending 05/05 Mssa pos on pneumonia pcr Nocturnal bipap Nasal [id number] Balance: pos 1L Wheeze pos Assessment: Ac on ch hypercapnic respiratory failure Digoxin toxicity NICK Hyperkalemia Thrombocytopenia-improvement HfpEF Influenza A Decompensated heart failure Lt adrenal nodule Rt renal cystic mass Folate deficiency Unexplained weight loss Plan: ceftriaxone Tamiflu Diuresis Bronchodilator, dulera, prednisone taper Folic acid replacement Work up of nodule, cystic mass and weight loss to be completed after resolution of acute illness Transfer to medicine service * Silvino Zabala MD - 05/05/2024 7:05 AM EST ICU Progress Note Name: Alta Baker : 1950(74 y.o.) Date: 05/05/24 Team: MICU Attending: Dr Dasilva Subjective: Hospital Summary: 74 y.o female PMHX significant for Permanent Afib with tachycardia mediated CM HFpEF 66% 02/17/24, Pulmonary HTN, COPD, depression, HTN presented to the ED with complaint of generalized weakness, N/V and intermittent diarrhea. Initially admitted for concerns for digoxin toxicity and NICK, transferredto ICU for increased work of breathing and need for NIV. Digoxin held. Patient on HFNC 4L. ABG revealed significant hypercapnia (PCO2 71.3), acute respiratory acidosis (pH 7.13). Started on cefepime and vancomycin for broad spectrum coverage, prednisone x5 days. CXR showed enlarged cardiac silhouette. Eliquis held in setting of declining Hgb and plts. Resp yu grossly negative except for positive MSSA and FluA. Thrombocytopenic yu significant for profound folate deficiency. Patient on Tamiflu, prednisone 40mg x5 days, home dose for sertraline, metoprolol, and atorvastatin. Patient afebrile andstable, down to 2L NC with Xopenex and Spiriva saturating well and able to ambulate with assistance. Now stable for GMF transfer with night BiPAP and completion of abx and prednisone and continuationof renal and adrenal mass workup in relation to her 50lbs wt loss. This AM PNA PCR +MSSA, ancef resumed for 5 additional days of treatment. Interval Events: Patient was on 2L PPM and transitioned to 2L NC when her sats hit 87. She is now on 3L NC and stable at 98%. Patient is resting at bedside. States her breathing feels better. No acute distress. Audibly wheezing, A&Ox4. Vitals stable overnight. Mildly tachycardic voernight 80s-100s. SBP 120-130s. Labs show K 4.1->5, Cr 0.77, Glu 114, Ca 8.4->8.6, iCa 4.3->4.5, Phos 2.1, Mag 1.7. Procal0.16->0.11. Hgb 9.4->8.2->8.4., plts 46->57. Scheduled Meds:apixaban, 5 mg, Oral, BID atorvastatin, 10 mg, Oral, Nightly ceFAZolin, 1,000 mg, IntraVENous, q8h cetirizine, 5 mg, Oral, Nightly folic acid, 1 mg, Oral, Daily levalbuterol, 1.25 mg, Nebulization, TID metoprolol tartrate, 75 mg, Oral, BID miconazole, , Topical, BID mometasone-formoterol, 2 puff, Inhalation, BID oseltamivir, 75 mg, Oral, BID [START ON 05/06/2024] pantoprazole, 40 mg, Oral, qAM AC [START ON 05/06/2024] predniSONE, 40 mg, Oral, Daily sertraline, 50 mg, Oral, Daily sodium chloride, 4 mL, Nebulization, BID tiotropium, 2 puff, Inhalation, Daily Continuous Infusions: Objective: Last Vitals: BP MAP 124/64 (05/05/24 1300) 81 (05/05/24 1300) Arterial BP MAP Temp (!) 35.7 C (96.3 F) (05/05/24 0800) Pulse 75 (05/05/24 1400) Resp 18 (05/05/24 1400) SpO2 98 % (05/05/24 1400) Weight 96.5 kg (212 lb 11.9 oz) (05/05/24 0600) BMI Body mass index is 42.97 kg/m . I/O: 05/04 0700 - 05/05 0659 In: 1530 [P.O.:1320; I.V.:10] Out: 600 [Urine:600] Ventilator: Resp Rate (Set): 18 FiO2 (%): 30 % Inspiratory Time (sec): 0.9 sec Oxygen Delivery: O2 Flow Rate (L/min): 2 L/min Invasive Lines / Tubes / Drains: Peripheral IV 04/30/24 Right Forearm (Active) Number of days: 4 Peripheral IV 05/02/24 Anterior;Distal;Right;Upper Arm (Active) Number of days: 2 External Urinary Catheter (Active) Number of days: 1 Central Line Indication: NA - patient does not have a central line Shukla Indications: Hourly I&Os (Critical Care ONLY) Restraints: NA - patient is not restrained. Wounds: Constitutional: General Appearance [x]WDWN []Obese []Cachectic []Thin []Ill Eyes: Inspection of Pupils/Irises Pupils round and react: [x]Yes []No Sclera: []Icteric [x]Non-Icteric Inspection of Conjunctiva/Lids Conjunctiva: []Injected [x]Non-Injected Lids: [x]Intact []Lesion Present ENT/Mouth: External Inspection of ears/nose [x] Normal [] Scar/Lesion/Mass Inspection of teeth/lips/gums Dentition: [][place] Teeth []Dentures Lips/Gums: []Intact []Lesion Present Mucosa: [][place] []Moist []Dry Neck: External Appearance Overall Appearance: [x]Normal []Lesion/Mass/Crepitus Present Trachea midline: [x]Yes []No Thyroid []Normal []Enlarged []Tender []Mass []Absent Respiratory: Respiratory effort []Labored [x]Non-Labored [] Mechanically-Ventilated Auscultation []Clear []Crackles [x]Wheezes [x]Rhonchi RL>LL Cardiovascular: Auscultation Rate: [x]Regular []Irregular []Tachycardia []Bradycardia Rhythm: [x]Regular []Irregular Murmur: []Present [x]Absent Extremities Peripheral Edema: []Present []Absent Varicosities: []Present []Absent Gastrointestinal: Abdomen Palpation: [x]Soft []Firm []Tender []Non-Tender []Distended [x]Non-distended Mass: []Present [x]Absent Bowel Sounds: [x]Present []Absent Hernia: []Present [x]Absent Liver/Spleen: []Hepatosplenomegaly [x]Organomegaly Absent Musculoskeletal: Inspection of Digits and Nails Cyanosis: []Present [x]Absent Clubbing: []Present [x]Absent Ischemia: []Present [x]Absent Infection: []Present [x]Absent Extremities CLARKE Equally: Except ([]RUE []RLE []LUE []LLE) Strength/Tone: Intact and Normal ([]RUE []RLE []LUE []LLE) Skin: Inspection [x]Normal []Rash []Lesion []Ulcer Palpation [x]Warm []Cool [x]Dry []Clammy []Nodules []Induration []Skin-tightening Cap-Refill: [] <3 sec [] >3 seconds (delayed) Neurologic: GCS EYE: 4 - Opens spontaneously GCS MOTOR: 6 - Obeys commands for movement GCS VERBAL: 5 - Oriented to person, place, time Total GCS: 15 [] Sensation grossly intact Psych: Mental Status Alert: [x]Yes [] No Oriented: []x0 []X1 []X2 [x]x3 Mood/Affect []Normal []Flat []Agitated []Depressed []Anxious [x]Calm []Sedated []NAD [facility] within last 24 hours- BMP: Recent Labs 05/03/24 1310 05/04/24 0303 05/05/24 0439 NA 145 143 142 K 4.8 4.1 5.0 CL 111* 109* 109* CO2 28 BUN * CREATININE 0.89 0.93 0.77 CALCIUM 8.6* 8.4* 8.6* MG -- 1.6 1.7 PHOS -- 2.1* 2.1* LFTs:No results for input(s): AST, ALT, PROT, ALBUMIN, BILITOT, BILIRUBINU, ALKPHOS, LIPASE in the last 72 hours. Glucose: Recent Labs 05/03/24 0442 05/03/24 1310 05/04/24 0303 05/05/24 0439 GLUCOSE 136* 116* 95 114 Procal: Recent Labs 05/03/24 1310 05/04/24 1545 PROCAL 0.16* 0.11* CBC: Recent Labs 05/03/24 1310 05/04/24 0303 05/04/24 1008 05/05/24 0439 WBC 7.3 6.9 -- 6.8 HGB 9.4* 9.3 8.2* 9.6 8.4* HCT 32.1* 26.7* -- 28.0* PLT 44* 46* -- 57* MCV 95.3 90.8 -- 92.7 RDW 15.1* 15.1* -- 15.0 ABGs: Recent Labs 05/02/24 1834 05/03/24 0449 05/03/24 1051 05/04/24 0303 05/04/24 1008 PHART 7.213* -- -- -- -- [id number] 71.3* -- -- -- -- PO2ART 100.6* -- -- -- -- [id number] 28.1* -- -- -- -- [id number] Nasal cannula < > 40% Oxygen 30% Oxygen 2L < > = values in this interval not displayed. Lactic Acid: Recent Labs 05/03/24 0442 LACTATE 1.0 INR: Recent Labs 05/02/24 1818 INR 1.3* Cardiac Injury Profile: No results for input(s): CKTOTAL, CKMB, TROPONINI in the last 72 hours. Labs in Last 3 months: Lab Results Component Value Date TSH 1.29 04/28/2024 INR 1.3 (H) 05/02/2024 Microbiology- Urine Cx: Lab Results Component Value Date URINECX 04/28/2024 Multiple species present; probable contamination; repeat suggested Blood Cx: Lab Results Component Value Date BLOODCX No growth at 5 days 02/15/2024 BLOODCX No growth at 5 days 02/15/2024 Sputum Cx: Lab Results Component Value Date RESPCULT Few respiratory mei present. 05/04/2024 RESPCULT Rare Staphylococcus aureus (A) 05/04/2024 Gram Stain: Lab Results Component Value Date LABGRAM Few Epithelial cells per low power field 05/04/2024 LABGRAM 05/04/2024 Many Polymorphonuclear leukocytes per low power field LABGRAM No organisms seen 05/04/2024 PNA PCR: Lab Results Component Value Date HUMANMETAPNE Not Detected 05/04/2024 COVID19: No results found for: COVID19 Legionella Ag: Lab Results Component Value Date LEGIONELLAPN Not Detected 05/04/2024 Strep Ag: No results for input(s): STREPPNEUMO in the last 72 hours. Imaging- CT 04/27 IMPRESSION: New superior endplate compression fracture L4. Interval subacute compression fracture L3. Similar superior endplate compression at L2 with central height loss. Overall progression with increasing height loss, sclerosis, and mild retropulsion of the T12 vertebral body. Osteopenia. Cardiomegaly. Trace pericardial effusion. LEFT adrenal gland 4.0 cm mass, unchanged from prior exam. Recommendations, as below. Right renal stable 10 mm hyperdense lesion which may reflect a proteinaceous cyst or hemorrhagic cyst, indeterminate. Cholelithiasis. Specimen centrally. Colonic diverticulosis. Renal US 04/28 IMPRESSION: Impression: No hydronephrosis or renal stones. Incidental gallstone in the gallbladder. Large left adrenal nodule measures 5.2 x 3.4 x 3.7 cm, not representing an adenoma by CT (performedyesterday). Follow-up recommended. Right renal lesion has appearance of a cyst on this exam, however definitive through transmission not demonstrated. The lesion is of increased density on CT performed yesterday, measuring 54 Hounsfield units. Proteinaceous cyst is thought to be most likely. Follow-up recommended to document stability. Urologic consultation for follow-up. CXR 05/02 IMPRESSION: Enlarged cardiac silhouette CXR 05/04 IMPRESSION: Cardiomegaly. Assessment and Plan: Principal Problem: Generalized weakness Active Problems: Severe malnutrition (CMS/HCC) (HCC) Assessment: AECOPD 2/2 FluA and MSSA PNA Normocytic Anemia Thrombocytopenia 2/ folate deficiency Concern for HF decompensation, Hx of HFpEF LVEF 66% 02/17/24 Hx of Permanent Atrial Fibrillation on DOAC Hx of Pulmonary HTN Hx of HTN Hx of Depression Hx of compression fractures Hx of Left adrenal gland 4 cm mass Acute Hypercapnic Respiratory Failure -resolved NICK - resolved Hyperkalemia - resolved ASSESSMENT: PLAN: Neuro/Spine - Continue sertraline Cardiovascular - HDS - At MAP goal >65 - Continue metoprolol 75mg BID for rate - Continue atorvastatin Pulmonary - O2 requirement: 3L NC - Prednisone 40mg x7 days (day 06/19) - Spiriva daily and Xopenex q4h - Add dulera - Robitussin prn FEN/GI - Diet: Regular - Daily BMP Heme - Hgb: 8.4 - Normocytic anemia - D-dimer negative - Iron levels consistent with LILA - Workup for thrombocytopenia - hep-c negative - HIV pending - Folate 3.7, 05/03 - B12 wnl - peripheral blood smear pending - renal cystic mas and adrenal mass to be worked up - Replete folate 1g daily - Daily CBC - Resume DOAC with+PLT trend ID - MSSA positive on pneumonia PCR - follow cx - Influenza A positive - Tamiflu 75mg BID x5 days ending 05/07 - Discontinued Cefepime - Continue 1g Ancef q8 for 7 day course ending 05/10 - Procal downtrending - GI, C. Diff, and remainder resp panel negative Lines/Devices: - R PIV x2 - External catheter GI Prophylaxis: protonix DVT Prophylaxis: Full anticoagulation Disposition: Transfer to [facility] Critical Care Time: 55 Total critical care time caring for this patient with life threatening, unstable organ failure, including direct patient contact, management of life support systems, review of data including imaging and labs, discussions with other team members and physicians, excluding procedures. Cosigned by Chelsey Dasilva MD at 05/05/2024 5:45 PM EST Associated attestation - Chelsey Dasilva MD - 05/05/2024 5:45 PM EST I have personally performed a [id number] diagnostic evaluation on this patient on date of service05/05/2024 . History, labs, imaging studies, and electronic medical record have been reviewed by me. This notedocumented by the [x]bathhouse keeper []LEROY reflects my history, exam, and medical decision making. I have reviewed and agree with the care plan. Changes were made in the orders as necessary. ROS documentation was reviewed and negative unless otherwise stated in HPI. Additional pertinent interval history, ROS, and physical exam findings: 74 yr F copd, afib on digoxin, depression, HTN, nick, now admitted initially with Digoxin toxicity, hospital stay complicated by NICK and then she developed ac resp failure sec to influenza infection and MSSA pneumonia. ROS weight loss 05/04 Nocturnal bipap Weaned to 2lnc Afebrile No conversational dyspnea Persistent thrombocytopenia Folate :3.7 , B12 pending 05/05 Mssa pos on pneumonia pcr Nocturnal bipap Nasal [id number] Balance: pos 1L Wheeze pos Assessment: Ac on ch hypercapnic respiratory failure Digoxin toxicity NICK Hyperkalemia Thrombocytopenia-improvement HfpEF Influenza A Decompensated heart failure Lt adrenal nodule Rt renal cystic mass Folate deficiency Unexplained weight loss Plan: ceftriaxone Tamiflu Diuresis Bronchodilator, dulera, prednisone taper Folic acid replacement Work up of nodule, cystic mass and weight loss to be completed after resolution of acute illness Transfer to medicine service * Silvino Zabala MD - 05/04/2024 4:57 PM EST Family Communication Number Called: [phone] Name of Designated Family Battery Container Inspector: Rhiannon Burciaga Relationship: daughter Phone Call Outcome: I spoke with the individual listed above. Family Battery Container Inspector Updated on the Following: pt well enough to transfer to [facility]. All questions answered at this time. * Silvino Zabala MD - 05/04/2024 4:08 PM EST ICU Transfer Checklist Transfer Med Reconciliation (resume home meds if able, convert to PO if able) Complete Antibiotics (name, indication, duration, convert to PO if able) No, cefepime discontinued after procal trending down Steroid (indication, duration, convert to PO if able) Yes,prednisone 40 for 5 days for AECOPD Anticipated Pateros Medications (ICU initiated) or Dose Changes and Indication Yes, indication folic acid for deficiency, Spiriva for COPD --Pulm consulted for COPD mgmnt --Night BiPAP Permanently Discontinued Home Medications and Reason for medication contraindication No Shukla Catheter (please remove if able. Note: place DC order) No Central Line (please remove if able. Note: place DC order) No Transfer Discussed with: Dr. Olivo ([facility] [place]) If additional questions for ICU team within 24 hours of ICU transfer, page ICU inter/senior for clarifications. * Marivel Rodríguez APRN - DESKTOP ENGINEER - 05/04/2024 10:19 AM EST Brief Card/EP note: Chart and telemetry reviewed. Stable and positive progression of resp status now on NC at 2 liters. Renal function stable. Hgb stable at 8.2 and platelet count up to 46. Telemetry with continued permanent atrial fibrillation with vent rates well controlled upper 80's-90's Would continue Metop Tartrate 75mg BID and continue holding the Eliquis until platelet count and Hgb stabilize. Will sign off, please call with any concerns * Chelsey Dasilva MD - 05/04/2024 10:10 AM EST I have personally performed a [id number] diagnostic evaluation on this patient on date of service05/04/2024 . History, labs, imaging studies, and electronic medical record have been reviewed by me. This notedocumented by the [x]bathhouse keeper []LEROY reflects my history, exam, and medical decision making. I have reviewed and agree with the care plan. Changes were made in the orders as necessary. ROS documentation was reviewed and negative unless otherwise stated in HPI. Additional pertinent interval history, ROS, and physical exam findings: 74 yr F copd, afib on digoxin, depression, HTN, nick, now admitted initially with Digoxin toxicity, hospital stay complicated by NICK and then she developed ac resp failure sec to influenza infection and MSSA pneumonia. ROS weight loss 2/ Nocturnal bipap Weaned to 2lnc Afebrile No conversational dyspnea Persistent thrombocytopenia Folate :3.7 , B12 pending Assessment: Ac on ch hypercapnic respiratory failure Digoxin toxicity NICK Hyperkalemia Thrombocytopenia HfpEF Influenza A Decompensated heart failure Lt adrenal nodule Rt renal cystic mass Folate deficiency Plan: continue cefepime until more information Tamiflu Diuresis Folic acid replacement Work up of nodule, cystic mass and weight loss to be completed after resolution of acute illness Transfer to medicine service * Robyn Astorga MD - 05/04/2024 7:31 AM EST [facility] Progress Note Subjective/ 74 y.o. year old female who we are seeing in consultation for NICK. 05/02: Patient transferred to ICU in evening d/t acute respiratory failure with hypercapnia for NIV support Seen and examined in ICU Blood pressures stable Remains afebrile. On BiPAP overnight. Transition to nasal cannula this morning. Non-oliguric, urine output not accurately charted ROS Unable to be completed 2/[address] No interval changes to PFSH. All interval notes/labs/imaging reviewed. Objective/ Vitals: 05/04/24 0639 05/04/24 0649 05/04/24 0654 05/04/24 0700 BP: 145/85 BP Location: Patient Position: Pulse: 100 107 Resp: 21 22 Temp: TempSrc: SpO2: 100% 100% 100% 98% Weight: Height: 24HR INTAKE/OUTPUT: Intake/Output Summary (Last 24 hours) at 05/04/2024 0731 Last data filed at 05/04/2024 0646 Gross per 24 hour Intake 1056 ml Output 121 ml Net 935 ml Physical Exam Constitutional: Appearance: She is ill-appearing. HENT: Head: Normocephalic and atraumatic. Mouth/Throat: Mouth: Mucous membranes are dry. Eyes: General: No scleral icterus. Cardiovascular: Rate and Rhythm: Normal rate. Rhythm irregular. Pulmonary: Breath sounds: Wheezing present. Comments: PPM in place Abdominal: General: Bowel sounds are normal. Palpations: Abdomen is soft. Musculoskeletal: Right lower leg: No edema. Left lower leg: No edema. Skin: General: Skin is warm and dry. Neurological: Comments: Currently resting Psychiatric: Comments: GUERLINE Scheduled Meds:[Held by provider] apixaban, 5 mg, Oral, BID atorvastatin, 10 mg, Oral, Nightly cefepime, 2,000 mg, IntraVENous, q8h cetirizine, 5 mg, Oral, Nightly folic acid, 1 mg, Oral, Daily levalbuterol, 1.25 mg, Nebulization, q4h WA metoprolol tartrate, 75 mg, Oral, BID miconazole, , Topical, BID oseltamivir, 75 mg, Oral, BID potassium phosphates 10 mmol in sodium chloride 0.9 % 100 mL IVPB, 10 mmol, IntraVENous, Once predniSONE, 40 mg, Oral, Daily sertraline, 50 mg, Oral, Daily sodium chloride, 4 mL, Nebulization, BID tiotropium, 2 puff, Inhalation, Daily Continuous Infusions: PRN Meds:.PRN medications: acetaminophen OR acetaminophen, guaiFENesin- dextromethorphan, loperamide, ondansetron ODT OR ondansetron, polyethylene glycol (PEG) 3350 Data/ Recent Labs 05/03/24 0442 05/03/24 0449 05/03/24 1310 05/04/24 0303 WBC 7.3 -- 7.3 6.9 HGB 8.6* < > 9.4* 9.3 8.2* HCT 28.0* -- 32.1* 26.7* MCV 91.8 -- 95.3 90.8 PLT 37* -- 44* 46* < > = values in this interval not displayed. Recent Labs 05/03/24 0442 05/03/24 1310 05/04/24 0303 NA 143 145 143 K 5.5* 4.8 4.1 CL 113* 111* 109* CO2 23 29 27 GLUCOSE 136* 116* 95 PHOS -- -- 2.1* MG -- -- 1.6 BUN 17 19 23 CREATININE 0.90 0.89 0.93 Imaging: reviewed Renal US 04/28/2024: Findings: Multiple static dickey scale and color Doppler sonographic images of the bilateral kidneys are submitted for interpretation. The right kidney measures 9.7 x 6.5 x 5 cm and demonstrates a suspected small lower pole cyst measuring 1.6 x 1.3 x 1.4 cm.. The left kidney measures 9.4 x 4.8 x 5.6 cm and demonstrates a grossly normal sonographic appearance. The bladder is incompletely distended, therefore limited in assessment. IMPRESSION: Impression: No hydronephrosis or renal stones. Incidental gallstone in the gallbladder. Large left adrenal nodule measures 5.2 x 3.4 x 3.7 cm, not representing an adenoma by CT (performedyesterday). Follow-up recommended. Right renal lesion has appearance of a cyst on this exam, however definitive through transmission not demonstrated. The lesion is of increased density on CT performed yesterday, measuring 54 Hounsfield units. Proteinaceous cyst is thought to be most likely. Follow-up recommended to document stability. Urologic consultation for follow-up. Assessment/ NICK 2/2 volume depletion in setting of poor po intake + N/V/D N17.9: resolved Hyperkalemia E87.5 Acute hypercapnic respiratory failure J96.02 Infulenza A J10.1 Chronic HFpEF I50.32 Thrombocytopenia N/V/D R11.2, R19.7 Compression fracture of L4 vertebra NAGMA: resolved Hypernatremia E87.0: resolved Plan/ -Renal function fluctuating near baseline. baseline ~ 0.6-0.8 -Sodium levels fluctuating, back wnl, continue to monitor trend as patient currently NPO -Hyperkalemia resolved status post Lasix. Continue to trend. -Need strict I&Os -Defer diuretic dosing to cardiology -Ok for additional IV lasix from renal standpoint to help wean down O2 requirements -Thrombocytopenia: Rx per primary -IV abx per ID: on cefepime + Tamiflu. Monitor neurological status given cefepime. -Rest of management per ICU Discussed w Dr. Dasilva. * Silvino Zabala MD - 05/04/2024 6:34 AM EST ICU Progress Note Name: Alta Baker : 1950(74 y.o.) Date: 05/04/24 Team: MICU Attending: Dr Dasilva Subjective: Hospital Summary: 74 y.o femal PMHX significant for Permanent Afib with tachycardia mediated CM HFpEF 66% 02/17/24, Pulmonary HTN, COPD, depression, HTN presented to the ED with complaint of generalized weakness, N/V and intermittent diarrhea. Initially admitted for concerns for digoxin toxicity and NICK, transferred to ICU for increased work of breathing and need for NIV. Digoxin held. Patient on HFNC 4L. ABG revealed significant hypercapnia (PCO2 71.3), acute respiratory acidosis (pH 7.13). Started on cefepime and vancomycin for broad spectrum coverage, prednisone x5 days. CXR showed enlarged cardiac silhouette. Eliquis held in setting of declining Hgb and plts. Resp yu grossly negative except for positive MSSA and FluA. Thrombocytopenic yu significant for profound folate deficiency. Patient on Tamiflu, prednisone 40mg x5 days, home dose for sertraline, metoprolol, and atorvastatin. Patient afebrile and stable, down to 2L NC with Xopenex and Spiriva saturating well and able to ambulate with assistance.Now stable for GMF transfer with night BiPAP and completion of abx and prednisone and continuation of renal and adrenal mass workup in relation to her 50lbs wt loss. Interval Events: Patient is doing well this morning. On 2L NC with no acute complaints. States she slept well overnight and feels that she is improving with the breathing treatments. Patient states that she had a 50 pound weight loss in the last three months. Denies melena, BRBPR, hx of abd surgery, night sweats/fevers. Vitals stable overnight. Afebrile, normocardic, SBP 120s to 140s. On PPM. Labs show K 4.8->4.1, Ca 8.6 -> 8.4, iCa 4.3, Phos 2.1 and Mag 1.6. VBG 7.35/55.6/29.7. Hgb 9.4->8.2, plts 44->46. Scheduled Meds:[Held by provider] apixaban, 5 mg, Oral, BID atorvastatin, 10 mg, Oral, Nightly cefepime, 2,000 mg, IntraVENous, q8h cetirizine, 5 mg, Oral, Nightly folic acid, 1 mg, Oral, Daily levalbuterol, 1.25 mg, Nebulization, q4h WA metoprolol tartrate, 75 mg, Oral, BID miconazole, , Topical, BID oseltamivir, 75 mg, Oral, BID predniSONE, 40 mg, Oral, Daily sertraline, 50 mg, Oral, Daily sodium chloride, 4 mL, Nebulization, BID tiotropium, 2 puff, Inhalation, Daily Continuous Infusions: Objective: Last Vitals: BP MAP 122/64 (05/04/24 1120) 80 (05/04/24 1120) Arterial BP MAP Temp 36.3 C (97.4 F) (05/04/24 1120) Pulse 103 (05/04/24 1120) Resp (!) 34 (05/04/24 1120) SpO2 97 % (05/04/24 1120) Weight 95.2 kg (209 lb 14.1 oz) (05/04/24 0533) BMI Body mass index is 42.39 kg/m . I/O: 05/03 0700 - 05/04 0659 In: 1056 [P.O.:680; I.V.:376] Out: 121 [Urine:121] Ventilator: Resp Rate (Set): 18 FiO2 (%): 30 % Inspiratory Time (sec): 0.9 sec Oxygen Delivery: O2 Flow Rate (L/min): 2 L/min Invasive Lines / Tubes / Drains: Peripheral IV 04/30/24 Right Forearm (Active) Number of days: 3 Peripheral IV 05/02/24 Anterior;Distal;Right;Upper Arm (Active) Number of days: 1 External Urinary Catheter (Active) Number of days: 0 Central Line Indication: NA - patient does not have a central line Shukla Indications: NA - patient does not have a Shukla catheter Restraints: NA - patient is not restrained. Wounds: Constitutional: General Appearance []WDWN []Obese []Cachectic []Thin [x]Ill Eyes: Inspection of Pupils/Irises Pupils round and react: [x]Yes []No Sclera: []Icteric [x]Non-Icteric Inspection of Conjunctiva/Lids Conjunctiva: []Injected [x]Non-Injected Lids: [x]Intact []Lesion Present ENT/Mouth: External Inspection of ears/nose [x] Normal [] Scar/Lesion/Mass Inspection of teeth/lips/gums Dentition: [][place] Teeth []Dentures Lips/Gums: []Intact []Lesion Present Mucosa: [][place] []Moist [x]Dry Neck: External Appearance Overall Appearance: [x]Normal []Lesion/Mass/Crepitus Present Trachea midline: [x]Yes []No Thyroid []Normal []Enlarged []Tender []Mass []Absent Respiratory: Respiratory effort []Labored [x]Non-Labored [] Mechanically-Ventilated Auscultation []Clear []Crackles [x]Wheezes [][place] Cardiovascular: Auscultation Rate: [x]Regular []Irregular []Tachycardia []Bradycardia Rhythm: [x]Regular []Irregular Murmur: []Present [x]Absent Extremities Peripheral Edema: []Present [x]Absent Varicosities: []Present [x]Absent Gastrointestinal: Abdomen Palpation: [x]Soft []Firm []Tender []Non-Tender []Distended [x]Non-distended Mass: []Present [x]Absent Bowel Sounds: [x]Present []Absent Hernia: []Present [x]Absent Liver/Spleen: []Hepatosplenomegaly [x]Organomegaly Absent Musculoskeletal: Inspection of Digits and Nails Cyanosis: []Present [x]Absent Clubbing: []Present [x]Absent Ischemia: []Present [x]Absent Infection: []Present [x]Absent Extremities CLARKE Equally: Except ([]RUE []RLE []LUE []LLE) Strength/Tone: Intact and Normal ([]RUE []RLE []LUE []LLE) Skin: Inspection [x]Normal []Rash []Lesion []Ulcer Palpation [x]Warm []Cool [x]Dry []Clammy []Nodules []Induration []Skin-tightening Cap-Refill: [] <3 sec [] >3 seconds (delayed) Neurologic: GCS EYE: 4 - Opens spontaneously GCS MOTOR: 6 - Obeys commands for movement GCS VERBAL: 5 - Oriented to person, place, time Total GCS: 15 [x] Sensation grossly intact Psych: Mental Status Alert: [x]Yes [] No Oriented: []x0 []X1 []X2 [x]x3 Mood/Affect []Normal []Flat []Agitated []Depressed []Anxious [x]Calm []Sedated []NAD [facility] within last 24 hours- BMP: Recent Labs 05/03/2444105/03/24 1310 05/04/24 0303 NA 143 145 143 K 5.5* 4.8 4.1 CL 113* 111* 109* CO2 23 29 27 BUN 17 19 23 CREATININE 0.90 0.89 0.93 CALCIUM 8.3* 8.6* 8.4* MG -- -- 1.6 PHOS -- -- 2.1* LFTs:No results for input(s): AST, ALT, PROT, ALBUMIN, BILITOT, BILIRUBINU, ALKPHOS, LIPASE in the last 72 hours. Glucose: Recent Labs 05/02/24 0257 05/03/24 0442 05/03/24 1310 05/04/24 0303 GLUCOSE 108 136* 116* 95 Procal: Recent Labs 05/03/24 1310 PROCAL 0.16* CBC: Recent Labs 05/03/24 0442 05/03/24 0449 05/03/24 1310 05/04/24 0303 05/04/24 1008 WBC 7.3 -- 7.3 6.9 -- HGB 8.6* < > 9.4* 9.3 8.2* 9.6 HCT 28.0* -- 32.1* 26.7* -- PLT 37* -- 44* 46* -- MCV 91.8 -- 95.3 90.8 -- RDW 15.1* -- 15.1* 15.1* -- < > = values in this interval not displayed. ABGs: Recent Labs 05/02/24 1834 05/03/24 0449 05/03/24 1051 05/04/24 0303 05/04/24 1008 PHART 7.213* -- -- -- -- [id number] 71.3* -- -- -- -- PO2ART 100.6* -- -- -- -- SRQ1LUZ 28.1* -- -- -- -- [id number] Nasal cannula < > 40% Oxygen 30% Oxygen 2L < > = values in this interval not displayed. Lactic Acid: Recent Labs 05/03/24 0442 LACTATE 1.0 INR: Recent Labs 05/02/248 INR 1.3* Cardiac Injury Profile: No results for input(s): CKTOTAL, CKMB, TROPONINI in the last 72 hours. Labs in Last 3 months: Lab Results Component Value Date TSH 1.29 04/28/2024 INR 1.3 (H) 05/02/2024 Microbiology- Urine Cx: Lab Results Component Value Date URINECX 04/28/2024 Multiple species present; probable contamination; repeat suggested Blood Cx: Lab Results Component Value Date BLOODCX No growth at 5 days 02/15/2024 BLOODCX No growth at 5 days 02/15/2024 Sputum Cx: No results found for: RESPCULT Gram Stain: No results found for: LABGRAM PNA PCR: Lab Results Component Value Date HUMANMETAPNE Not Detected 05/02/2024 COVID19: No results found for: COVID19 Legionella Ag: No results found for: LEGIONELLAPN Strep Ag: No results for input(s): STREPPNEUMO in the last 72 hours. Imaging- CT 04/27 IMPRESSION: New superior endplate compression fracture L4. Interval subacute compression fracture L3. Similar superior endplate compression at L2 with central height loss. Overall progression with increasing height loss, sclerosis, and mild retropulsion of the T12 vertebral body. Osteopenia. Cardiomegaly. Trace pericardial effusion. LEFT adrenal gland 4.0 cm mass, unchanged from prior exam. Recommendations, as below. Right renal stable 10 mm hyperdense lesion which may reflect a proteinaceous cyst or hemorrhagic cyst, indeterminate. Cholelithiasis. Specimen centrally. Colonic diverticulosis. Renal US 04/28 IMPRESSION: Impression: No hydronephrosis or renal stones. Incidental gallstone in the gallbladder. Large left adrenal nodule measures 5.2 x 3.4 x 3.7 cm, not representing an adenoma by CT (performedyesterday). Follow-up recommended. Right renal lesion has appearance of a cyst on this exam, however definitive through transmission not demonstrated. The lesion is of increased density on CT performed yesterday, measuring 54 Hounsfield units. Proteinaceous cyst is thought to be most likely. Follow-up recommended to document stability. Urologic consultation for follow-up. CXR 05/02 IMPRESSION: Enlarged cardiac silhouette Assessment and Plan: Principal Problem: Generalized weakness Active Problems: Severe malnutrition (CMS/HCC) ([facility]) Assessment: Influenza A Infection AECOPD 2/2 FluA and MSSA PNA Normocytic Anemia Thrombocytopenia 2/2 folate deficiency Thrombocytopenia Concern for HF decompensation, Hx of HFpEF LVEF 66% 02/17/24 Hx of Permanent Atrial Fibrillation on DOAC Hx of Pulmonary HTN Hx of HTN Hx of Depression Hx of compression fractures Hx of Left adrenal gland 4 cm mass Acute Hypercapnic Respiratory Failure -resolved NICK - resolved Hyperkalemia - resolved PLAN: Neuro/Spine - Continue sertraline Cardiovascular - HDS - At MAP goal >65 - Continue metoprolol 75mg BID for rate - Continue atorvastatin - Hold eliquis in setting of Hgb 8.4 and plts 46 Pulmonary - O2 req: Transition to 2L NC given improvement in VBG - Ordered CXR - Prednisone 40mg x5 days (day 3/5) - Spiriva daily and Xopenex q4h - Robitussin prn FEN/GI - Diet: regular - Daily BMP Heme - Hgb: 8.2 - D-dimer negative - Iron levels consistent with LILA - Workup for thrombocytopenia - hep-c negative - HIV pending - Folate 3.7, 05/03 - B12 wnl - peripheral blood smear pending - renal cystic mass and adrenal mass to be worked up after hospital course - Replete folate with 1g daily - Replete potassium ID - MSSA positive - Influenza A positive - Tamiflu 75mg BID x5 days ending on 05/06 - Continue Cefepime pending complete respiratory workup - repeat procal, if low will discontinue abx - Pneumonia PCR panel pending - GI, C. Diff, and remainder resp panel negative Lines/Devices: - R PIV x2 - Catheter GI Prophylaxis: Not indicated DVT Prophylaxis: SCDs - holding eliquis Disposition: Transfer to [facility] * Terri Henao PA-C - 05/03/2024 2:49 PM EST [facility] Progress Note Subjective/ 74 y.o. year old female who we are seeing in consultation for NICK. 05/02: Patient transferred to ICU in evening d/t acute respiratory failure with hypercapnia for NIV support Interval History Seen and examined in ICU Patient currently sleeping with PPM in place Currently NPO Blood pressures stable Non-oliguric, urine output not accurately charted ROS Unable to be completed 04/[address] No interval changes to [facility]. All interval notes/labs/imaging reviewed. Objective/ Vitals: 05/03/24 0825 05/03/24 0900 05/03/24 1000 05/03/24 1256 BP: 116/66 126/59 Pulse: 90 102 89 82 Resp: (!) 39 Temp: TempSrc: SpO2: 99% 96% 98% 98% Weight: Height: 24HR INTAKE/OUTPUT: Intake/Output Summary (Last 24 hours) at 05/03/2024 1449 Last data filed at 05/03/2024 0635 Gross per 24 hour Intake 599 ml Output -- Net 599 ml Physical Exam Constitutional: Appearance: She is ill-appearing. HENT: Head: Normocephalic and atraumatic. Mouth/Throat: Mouth: Mucous membranes are dry. Eyes: General: No scleral icterus. Cardiovascular: Rate and Rhythm: Normal rate. Rhythm irregular. Pulmonary: Breath sounds: Wheezing present. Comments: PPM in place Abdominal: General: Bowel sounds are normal. Palpations: Abdomen is soft. Musculoskeletal: Cervical back: Neck supple. Right lower leg: No edema. Left lower leg: No edema. Skin: General: Skin is warm and dry. Neurological: Comments: Currently resting Psychiatric: Comments: GUERLINE Scheduled Meds:[Held by provider] apixaban, 5 mg, Oral, BID atorvastatin, 10 mg, Oral, Nightly cefepime, 2,000 mg, IntraVENous, q8h cetirizine, 5 mg, Oral, Nightly folic acid 1 mg in dextrose 5 % 50 mL IVPB, 1 mg, IntraVENous, Daily levalbuterol, 1.25 mg, Nebulization, q4h WA metoprolol tartrate, 75 mg, Oral, BID miconazole, , Topical, BID oseltamivir, 75 mg, Oral, BID predniSONE, 40 mg, Oral, Daily sertraline, 50 mg, Oral, Daily tiotropium, 2 puff, Inhalation, Daily Continuous Infusions: PRN Meds:.PRN medications: acetaminophen OR acetaminophen, guaiFENesin- dextromethorphan, loperamide, ondansetron ODT OR ondansetron, polyethylene glycol (PEG) 3350 Data/ Recent Labs 05/02/24 02505/02/24 1834 05/03/24 0442 05/03/24 0449 05/03/24 1051 05/03/24 1310 WBC 6.5 -- 7.3 -- -- 7.3 HGB 9.4* < > 8.6* 9.8 10.0 9.4* HCT 31.1* -- 28.0* -- -- 32.1* MCV 92.0 -- 91.8 -- -- 95.3 PLT 43* -- 37* -- -- 44* < > = values in this interval not displayed. Recent Labs 05/02/24 0257 05/03/24 0442 05/03/24 1310 NA 146* 143 145 K 4.2 5.5* 4.8 CL 113* 113* 111* CO2 25 23 29 GLUCOSE 108 136* 116* BUN 13 17 19 CREATININE 0.69 0.90 0.89 Imaging: reviewed Renal US 04/28/2024: Findings: Multiple static dickey scale and color Doppler sonographic images of the bilateral kidneys are submitted for interpretation. The right kidney measures 9.7 x 6.5 x 5 cm and demonstrates a suspected small lower pole cyst measuring 1.6 x 1.3 x 1.4 cm.. The left kidney measures 9.4 x 4.8 x 5.6 cm and demonstrates a grossly normal sonographic appearance. The bladder is incompletely distended, therefore limited in assessment. IMPRESSION: Impression: No hydronephrosis or renal stones. Incidental gallstone in the gallbladder. Large left adrenal nodule measures 5.2 x 3.4 x 3.7 cm, not representing an adenoma by CT (performedyesterday). Follow-up recommended. Right renal lesion has appearance of a cyst on this exam, however definitive through transmission not demonstrated. The lesion is of increased density on CT performed yesterday, measuring 54 Hounsfield units. Proteinaceous cyst is thought to be most likely. Follow-up recommended to document stability. Urologic consultation for follow-up. Assessment/ NICK 2/2 volume depletion in setting of poor po intake + N/V/D N17.9: resolved Hyperkalemia E87.5 Acute hypercapnic respiratory failure J96.02 Infulenza A J10.1 Chronic HFpEF I50.32 Thrombocytopenia N/V/D R11.2, R19.7 Compression fracture of L4 vertebra NAGMA: resolved Hypernatremia E87.0: resolved Plan/ -Renal function recovered back to patient's baseline ~ 0.6-0.8, NICK resolved. -Sodium level fluctuating, back wnl, continue to monitor trend as patient currently NPO -Potassium noted at 5.5 this morning, patient received 40 mg IV lasix x 1 dose with improvement down to 4.8 -Need strict I&Os -Defer diuretic dosing to cardiology -Ok for additional IV lasix from renal standpoint to help wean down O2 requirements -Thrombocytopenia: per primary -IV abx per ID: on cefepime + Tamiflu -Rest of management per ICU Plan d/w [employer] on floor We will follow. Please do not hesitate to call with any questions or concerns. DORIS Oro, PA-C [facility] Office This note is not finalized until authorized by Attending physician. Cosigned by Robyn Astorga MD at 05/03/2024 3:18 PM EST Associated attestation - Robyn Astorga MD - 05/03/2024 3:18 PM EST Patient was seen and examined by me. Notes reviewed and plan discussed with the PA. Agree with above note except Any variance is noted below. Interval events noted. Patient transferred to ICU and remains on an IV for her respiratory failure. Renal function remains stable. Noted to have hyperkalemia this morning. Received IV Lasix. Will help controlling the potassium levels with kaliuresis. Continue to trend. Robyn Astorga MD [facility] [phone] * Estephania Clayton formerly [facility] - 05/03/2024 11:05 AM EST Vancomycin therapy has been discontinued by Dr. Alin José on 06/10/34. Thank you for the consult. Pharmacy signing off for vancomycin dosing. Estephania Clayton RP, Date: 05/03/24 Time: 11:03 AM * Chelsey Dasilva MD - 05/03/2024 10:49 AM EST I have personally performed a [id number] diagnostic evaluation on this patient on date of service05/03/2024 . History, labs, imaging studies, and electronic medical record have been reviewed by me. This notedocumented by the [x]bathhouse keeper []LEROY reflects my history, exam, and medical decision making. I have reviewed and agree with the care plan. Changes were made in the orders as necessary. ROS documentation was reviewed and negative unless otherwise stated in HPI. Additional pertinent interval history, ROS, and physical exam findings: 74 yr F copd, afib on digoxin, depression, HTN, nick, Assessment: Ac on ch hypercapnic respiratory failure Digoxin toxicity NICK Hyperkalemia Thrombocytopenia HfpEF Influenza A Decompensated heart failure Plan: DC vancomycin, continue cefepime until more information Tamiflu Diuresis Total critical care time for this patient with life-threatening unstable organ failure, including direct patient contact, management of life support systems, review of data including imaging and labs, and discussions with other team members and physicians at least 40 minutes so far today, excludingprocedures. * Marivel Rodríguez APRN - [place] - 05/03/2024 9:19 AM EST [facility] Cardiology /Electrophysiology Progress Note HPI / Interval History: Alta Baker is a 74 y.o. female with past medical history of permanent atrial fibrillation, tachycardia mediated cardiomyopathy with improvement in her EF (20%--> 66% 03/07), HTN, HLD, CHRISTIANNE who presented to [facility] 04/28/24 after found to have NICK and elevated digoxin level in the setting of having persistent nausea, vomiting and some vision changes. Now with progressive resp insufficiency likely secondary to Influ A. Sleeping, did not arouse for exam Assessment/Plan HF NYHA Class [] I [] II [] III [] IV []Unable to assess [] N/A Permanent atrial fibrillation: vent rates are currently controlled mid Continue Metoprolol tart 75mg BID, Holding Eliquis secondary to acute thrombocytopenia and decreased Hgb. 2. Pulm HTN: moderate to severe 3+ TR with RVSP 60mmhg. She remains euvolemic on exam. Plan to establish patient with HF clinic for management of Pulm HTN. May need a RHC in the future. 3. Newly diagnosed Influ A: On Oseltamivir. Will defer to primary/ICU teams. 4. HFpEF: likely diastolic heart failure in Dec admitted to [facility] and over diuresed. Presented with NICK. Currently off diuretics. Can be used as needed. K+ 5.5 would just monitor. Medications: [Held by provider] apixaban, 5 mg, Oral, BID atorvastatin, 10 mg, Oral, Nightly cefepime, 2,000 mg, IntraVENous, q8h cetirizine, 5 mg, Oral, Nightly levalbuterol, 2.5 mg, Nebulization, q4h WA metoprolol tartrate, 75 mg, Oral, BID miconazole, , Topical, BID nystatin, , Topical, BID oseltamivir, 75 mg, Oral, BID predniSONE, 40 mg, Oral, Daily sertraline, 50 mg, Oral, Daily vancomycin, 1,250 mg, IntraVENous, q24h Infusion Medications: Physical Examination: Vitals: 05/03/24 0600 05/03/24 0615 05/03/24 0700 05/03/24 0825 BP: 126/79 130/91 Pulse: 90 91 90 Resp: 16 21 (!) 39 Temp: TempSrc: SpO2: 100% 100% 99% Weight: 210 lb 8.6 oz (95.5 kg) Height: Intake/Output Summary (Last 24 hours) at 05/03/2024 0928 Last data filed at 05/03/2024 0635 Gross per 24 hour Intake 599 ml Output -- Net 599 ml Patient Vitals for the past 168 hrs: Weight Weight Method 05/03/24 0600 210 lb 8.6 oz (95.5 kg) -- 05/02/24 0542 204 lb (92.5 kg) Bed scale 05/01/24 0539 197 lb 11.2 oz (89.7 kg) -- 04/30/24 0538 198 lb 3.2 oz (89.9 kg) -- 04/29/24 0600 197 lb 3.2 oz (89.4 kg) -- 04/28/24 1732 198 lb (89.8 kg) Stated 04/27/24 1908 198 lb (89.8 kg) Stated Physical Exam Constitutional: NAD Psychiatric: Alert. Medical insight Poor Neck: No JVD Respiratory: Lungs are Wheezes bilat Heart: Irreg-irreg tachy at times ; Nl S1 and S2, +sys murmur, no rub, gallop Abdomen: NABS; soft, non-tender, non-distended Extremities: no LE edema Skin: Warm to touch and well perfused Laboratory Tests: TROPONIN I, CONVENTIONAL SENSITIVITY No results found for: CKTOTAL, CKMB, CKMBINDEX, TROPONINI TROPONIN I, HIGH SENSITIVITY Troponin HS Serial Baseline Date Value Ref Range Status 04/27/2024 40 (H) <=14 ng/L Final Comment: In individuals presenting with symptoms > 2h, a baseline troponin <= 5 ng/L suggests acute cardiac injury is unlikely and further serial testing is generally not indicated. 2h Troponin HS (Serial 2nd Troponin) Date Value Ref Range Status 04/27/2024 37 (H) <=14 ng/L Final Comment: Rising or falling troponin delta between 2 - 15 ng/L as compared to baseline value requires a 3rd serial troponin No results found for: TROPDELTBASE 4h Troponin HS (Serial 3rd Troponin) Date Value Ref Range Status 04/28/2024 35 (H) <=14 ng/L Final Comment: Rising or falling troponin delta below 2 ng/L as compared to 2h troponin value suggests that acute cardiac injury is unlikely. No results found for: TROPDELTSEC Recent Labs 05/01/24 0038 05/02/24 0257 05/03/24441 NA 143 146* 143 K 4.1 4.2 5.5* CL 113* 113* 113* CO2 23 25 23 BUN 14 13 17 CREATININE 0.76 0.69 0.90 Recent Labs 05/01/24 0038 05/02/24 0257 05/02/24 1834 05/02/24 2322 05/03/24 0442 05/03/249 WBC 6.1 6.5 -- -- 7.3 -- HGB 10.4* 9.4* 11.4 9.4 8.6* 9.8 HCT 34.3* 31.1* -- -- 28.0* -- MCV 92.2 92.0 -- -- 91.8 -- PLT 59* 43* -- -- 37* -- Recent Labs 05/01/2437 BNP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 Nightly cetirizine, 5 mg, Oral, Nightly [Held by provider] metoprolol tartrate, 100 mg, Oral, BID miconazole, , Topical, BID nystatin, , Topical, BID sertraline, 50 mg, Oral, Daily Infusion Medications: lactated Ringer's, 100 mL/hr, Last Rate: 100 mL/hr (04/29/24 0238) Physical Examination: Vitals: 04/28/24 1732 04/28/24 2143 04/29/24 0600 04/29/24 0831 BP: (!) 123/49 (!) 131/42 BP Location: Right arm Patient Position: Lying Pulse: 63 67 Resp: 16 18 Temp: (!) 35.8 C (96.5 F) (!) 35.9 C (96.6 F) TempSrc: Temporal Temporal SpO2: 95% 92% Weight: 198 lb (89.8 kg) 197 lb 3.2 oz (89.4 kg) Height: 4' 11 (1.499 m) Intake/Output Summary (Last 24 hours) at 04/29/2024 1350 Last data filed at 04/29/2024 0238 Gross per 24 hour Intake 1305 ml Output -- Net 1305 ml Patient Vitals for the past 168 hrs: Weight Weight Method 04/29/24 0600 197 lb 3.2 oz (89.4 kg) -- 04/28/24 1732 198 lb (89.8 kg) Stated 04/27/24 1908 198 lb (89.8 kg) Stated Physical Exam Constitutional: Appearance: Normal appearance. She is obese. HENT: Head: Normocephalic. Mouth/Throat: Pharynx: No oropharyngeal exudate. Eyes: General: No scleral icterus. Right eye: No discharge. Left eye: No discharge. Cardiovascular: Rate and Rhythm: Normal rate. Rhythm irregular. Heart sounds: No murmur heard. No gallop. Pulmonary: Effort: No respiratory distress. Musculoskeletal: General: Normal range of motion. Cervical back: Normal range of motion. Right lower leg: No edema (chronic dry skin changes). Left lower leg: No edema. Skin: General: Skin is warm and dry. Neurological: Mental Status: She is alert and oriented to person, place, and time. Psychiatric: Mood and Affect: Mood normal. Thought Content: Thought content normal. Laboratory Tests: TROPONIN I, CONVENTIONAL SENSITIVITY No results found for: CKTOTAL, CKMB, CKMBINDEX, TROPONINI TROPONIN I, HIGH SENSITIVITY Troponin HS Serial Baseline Date Value Ref Range Status 04/27/2024 40 (H) <=14 ng/L Final Comment: In individuals presenting with symptoms > 2h, a baseline troponin <= 5 ng/L suggests acute cardiac injury is unlikely and further serial testing is generally not indicated. 2h Troponin HS (Serial 2nd Troponin) Date Value Ref Range Status 04/27/2024 37 (H) <=14 ng/L Final Comment: Rising or falling troponin delta between 2 - 15 ng/L as compared to baseline value requires a 3rd serial troponin No results found for: TROPDELTBASE 4h Troponin HS (Serial 3rd Troponin) Date Value Ref Range Status 04/28/2024 35 (H) <=14 ng/L Final Comment: Rising or falling troponin delta below 2 ng/L as compared to 2h troponin value suggests that acute cardiac injury is unlikely. No results found for: TROPDELTSEC Recent Labs 04/27/24 1050 04/27/24195604/28/24 0516 04/29/24 0105 NA 143 142 142 143 K 4.2 3.7 4.1 3.8 CL 115* 114* 116* 116* CO2 20* 20* 19* 21* BUN 25* 27* 26* 25* CREATININE 1.27* 1.84* 1.86* 1.51* Recent Labs 04/27/24195604/28/24 0516 04/29/24 0105 WBC 13.5* 9.7 8.6 HGB 11.6* 11.3* 9.9* HCT 38.6 36.2 33.0* MCV 90.4 89.6 91.4 PLT 93* 83* 77* Recent Labs 04/28/24 0516 04/29/24 0105 BNP 8,620* 6,549* No results for input(s): TRIG, HDL, LDLCALC, CHOL in the last 72 hours. Lab Results Component Value Date LDLCHOLESTER 53 03/25/2023 Lab Results Component Value Date TSH 1.29 04/28/2024 EF BP Date Value Ref Range Status 02/17/2024 66 55 - 100 % Final 02/14/24 TRANSTHORACIC ECHOCARDIOGRAM (TTE) COMPLETE (CONTRAST/BUBBLE/3D PRN) 02/17/2024 11:53 AM (Final) Interpretation Summary Left Ventricle: Left ventricle size is normal. Normal wall thickness. Normal left ventricular systolic function. EF by 2D Simpsons Biplane is 66%. Normal wall motion. Right Ventricle: Right ventricle size is normal. Reduced systolic function. Aortic Valve: Moderate (2+) regurgitation. Mitral Valve: Valve structure is normal. MV mean gradient is 5 mmHg. Thickened leaflets. Calcified leaflets. Mild to moderate (1-2+) regurgitation. Mild stenosis noted. MV mean gradient is 5 mmHg. Tricuspid Valve: Moderately severe (3+) regurgitation. Reversed hepatic vein systolic flow. RVSP may be underestimated in the setting of severe TR. RVSP is 60 mmHg. Left Atrium: Left atrium is severely dilated. LA Vol Index A/L is 75 mL/m2. Right Atrium: Right atrium is severely dilated. Pericardium: Small (<1 cm) circumferential pericardial effusion present. Signed by: Abbie Powers on 02/17/2024 11:53 AM Other reports reviewed: Cardiac Tests: ECG: afib Tracing reviewed. Telemetry findings reviewed: afib EF BP Date Value Ref Range Status 02/17/2024 66 55 - 100 % Final Brayan Quijano MD Date Of Service 04/29/2024 * Terri Henao PA-C - 04/29/2024 12:57 PM EST [facility] Progress Note Subjective/ 74 y.o. year old female who we are seeing in consultation for NICK. Interval History Laying in bed, no family present Diarrhea continues PO intake suboptimal Blood pressures stable Denies shortness of breath or chest pain ROS Otherwise negative No interval changes to [facility]. All interval notes/labs/imaging reviewed. Objective/ Vitals: 04/28/24 1732 04/28/24 2143 04/29/24 0600 04/29/24 0831 BP: (!) 123/49 (!) 131/42 BP Location: Right arm Patient Position: Lying Pulse: 63 67 Resp: 16 18 Temp: (!) 35.8 C (96.5 F) (!) 35.9 C (96.6 F) TempSrc: Temporal Temporal SpO2: 95% 92% Weight: 89.8 kg (198 lb) 89.4 kg (197 lb 3.2 oz) Height: 1.499 m (4' 11) 24HR INTAKE/OUTPUT: Intake/Output Summary (Last 24 hours) at 04/29/2024 1257 Last data filed at 04/29/2024 0238 Gross per 24 hour Intake 1305 ml Output -- Net 1305 ml Physical Exam Constitutional: Appearance: She is ill-appearing. HENT: Head: Normocephalic and atraumatic. Mouth/Throat: Mouth: Mucous membranes are moist. Eyes: General: No scleral icterus. Cardiovascular: Rate and Rhythm: Normal rate. Rhythm irregular. Pulmonary: Effort: Pulmonary effort is normal. Comments: Breathing comfortably on RA Abdominal: General: Bowel sounds are normal. Palpations: Abdomen is soft. Musculoskeletal: Cervical back: Neck supple. Right lower leg: No edema. Left lower leg: No edema. Skin: General: Skin is warm and dry. Neurological: Mental Status: She is alert and oriented to person, place, and time. Psychiatric: Mood and Affect: Mood normal. Thought Content: Thought content normal. Scheduled Meds:apixaban, 5 mg, Oral, BID atorvastatin, 10 mg, Oral, Nightly cetirizine, 5 mg, Oral, Nightly [Held by provider] metoprolol tartrate, 100 mg, Oral, BID miconazole, , Topical, BID nystatin, , Topical, BID sertraline, 50 mg, Oral, Daily Continuous Infusions:lactated Ringer's, 100 mL/hr, Last Rate: 100 mL/hr (04/29/24237) PRN Meds:.PRN medications: acetaminophen OR acetaminophen, albuterol, loperamide, ondansetron ODT OR ondansetron, polyethylene glycol (PEG) 3350 Data/ Recent Labs 04/27/24195604/28/2451504/29/24 010 WBC 13.5* 9.7 8.6 HGB 11.6* 11.3* 9.9* HCT 38.6 36.2 33.0* MCV 90.4 89.6 91.4 PLT 93* 83* 77* Recent Labs 04/27/24195604/28/2451504/29/24 010 NA 142 142 143 K 3.7 4.1 3.8 CL 114* 116* 116* CO2 20* 19* 21* GLUCOSE 134* 87 81* MG 1.7 -- -- BUN 27* 26* 25* CREATININE 1.84* 1.86* 1.51* Imaging: reviewed Renal US 04/28/2024: Findings: Multiple static dickey scale and color Doppler sonographic images of the bilateral kidneys are submitted for interpretation. The right kidney measures 9.7 x 6.5 x 5 cm and demonstrates a suspected small lower pole cyst measuring 1.6 x 1.3 x 1.4 cm.. The left kidney measures 9.4 x 4.8 x 5.6 cm and demonstrates a grossly normal sonographic appearance. The bladder is incompletely distended, therefore limited in assessment. IMPRESSION: Impression: No hydronephrosis or renal stones. Incidental gallstone in the gallbladder. Large left adrenal nodule measures 5.2 x 3.4 x 3.7 cm, not representing an adenoma by CT (performedyesterday). Follow-up recommended. Right renal lesion has appearance of a cyst on this exam, however definitive through transmission not demonstrated. The lesion is of increased density on CT performed yesterday, measuring 54 Hounsfield units. Proteinaceous cyst is thought to be most likely. Follow-up recommended to document stability. Urologic consultation for follow-up. Assessment/ NICK 2/2 volume depletion in setting of poor po intake + N/V/D N17.9 NAGMA E87.214 N/V/D R11.2, R19.7 Chronic HFpEF I50.32 Compression fracture of L4 vertebra Thrombocytopenia Plan/ -Renal function improving with IVF, remains elevated far above patient's baseline ~ 0.6-0.8 -Continue to trend creatinine and monitor urine output closely -Need strict I&Os -Continue to hold home diuretics -Metabolic acidosis resolving with buffered IVF, cont to monitor -Discontinue IVF and monitor off fluids -Renal US reviewed: negative for hydronephrosis, incidental finding of possible right renal cyst measure 1.6 x 1.3 x 1.4 cm -Recommend urologic follow up of right renal lesion and adrenal mass seen on CT -Cardiology following, noted Digoxin permanently discontinued -Thrombocytopenia: per primary -Rest of management per primary team Plan d/w patient and primary team We will follow. Please do not hesitate to call with any questions or concerns. DORIS Oro PA-C [facility] Office This note is not finalized until authorized by Attending physician. Cosigned by Robyn Astorga MD at 04/29/2024 4:23 PM EST Associated attestation - Robyn Astorga MD - 04/29/2024 4:23 PM EST Notes reviewed and plan discussed with the PA. Agree with above note except Any variance is noted below. Robyn Astorga MD [facility] [phone] * Kwan Aviles DO - 04/29/2024 7:04 AM EST Hospitalist Progress Note - [facility] ([facility]) 04/29/2024 7:04 AM [phone]: Please page me for patient care issues. [phone]: Please page [facility]ist - [facility] for any issues. Subjective and Objective: Admit Date: 04/27/2024 PCP: Kory Ibarra DO Chief Complaint Patient presents with Fatigue Per family increased fatigued and generalized weakness x 1 month. States N/V/D and loss of appetitex 1 month. Was seen at her cardiologists office today & her digoxin level was elevated. Hx of Afib. History of an a recent adrenal mass finding. Adult diet Regular; Low Sodium (2 gm) Dietary Orders (From admission, onward) Start Ordered 04/28/24455 Adult diet Regular; Low Sodium (2 gm) Diet effective now Question Answer Comment Diet type Regular Sodium restriction: Low Sodium (2 gm) 04/28/24454 I/O last 3 completed shifts: In: 1305 (14.6 mL/kg) [P.O.:150; I.V.:1155 (12.9 mL/kg)] Out: - (0 mL/kg) Weight: 89.4 kg @IODETAILS@ @[email or web address]@ Medications: lactated Ringer's, 100 mL/hr, Last Rate: 100 mL/hr (04/29/24 0238) apixaban, 5 mg, Oral, BID atorvastatin, 10 mg, Oral, Nightly cetirizine, 5 mg, Oral, Nightly [Held by provider] metoprolol tartrate, 100 mg, Oral, BID miconazole, , Topical, BID nystatin, , Topical, BID sertraline, 50 mg, Oral, Daily Recent Labs 04/27/24195604/28/2451504/29/24 010 WBC 13.5* 9.7 8.6 HGB 11.6* 11.3* 9.9* PLT 93* 83* 77* Recent Labs 04/27/24195604/28/2451504/29/24104 NA 142 142 143 K 3.7 4.1 3.8 CL 114* 116* 116* CO2 20* 19* 21* BUN 27* 26* 25* CREATININE 1.84* 1.86* 1.51* GLUCOSE 134* 87 81* Recent Labs 04/27/241956 AST 12 ALT 10 BILITOT 0.7 ALKPHOS 60 No results found for: TRIG, HDL, LDLCALC, CHOL No results found for: PHART, PO2ART, LHY7CQI No results for input(s): INR in the last 72 hours. No results for input(s): CKTOTAL, CKMB, TROPONINI in the last 72 hours. No results for input(s): DDIMER in the last 72 hours. No results found for: HGBA1C Lab Results Component Value Date TSH 1.29 04/28/2024 Urine Culture: No results found for this or any previous visit. Objective: Vitals: BP (!) 123/49 Pulse 63 Temp (!) 35.8 C (96.5 F) (Temporal) Resp 16 Ht 4' 11 (1.499m) Wt 197 lb 3.2 oz (89.4 kg) SpO2 95% BMI 39.83 kg/m Pulse Ox: SpO2 Av.1 % Min: 94 % Max: 96 % Supplemental O2: Past 24 hours events: updated daughter GENERAL: alert without acute distress CARDIOVASCULAR: no rubs, no palpitations RESPIRATORY: no crackles, not using accessory muscles ABDOMEN: soft, no acute abd pain EXTREMITIES: no edema ANATOMY/TUBES/LINES: N/A Running Summary, Assessment, and Plan Alta is a 74 y.o. female with past medical history significant for atrial fibrillation, COPD, depression, essential hypertension who presented to the emergency room with complaint of generalized weakness, nausea vomiting and intermittent diarrhea which has been ongoing for past 1 month. Patient went to see her residential program coordinator who was concerned about digoxin level which she has been taking for underlying atrial fibrillation. Her Creatinine was 1.4 three weeks prior to presentation, baseline ~ 0.7. Her digoxin level was slightly elevated at 2.4 on 04/27 and was stopped by her Certified [employer] Engineer. She had been transferred to a residential for therapy and had been home for a couple of weeks. Walks witha walker. In ED, VSS. Cr 1.84, WBC 13.5, Hgb 11.6, Plts 93. UA loaded with bacteria but no LE, nitrites, or WBCs. Admitted for further evaluation and management. Having diarrhea, C Diff and Stool PCR all negative. Cardio and Nephro consulted, Digoxin stopped indefinitely, Lopressor held. A CT from 06/07/2017 when she was admitted for trauma while on Coumadin showed 4 cm adrenal mass, unsure what follow up was pursued at that time. She had an outpatient appointment with Urology on 04/18/2024 for adrenal mass, but she cancelled appointment because she was feeling better, will reach back out to Urology for follow up for adrenal and new renal mass. Urine VMA and Metanephrines already in process from PCP workup. Urology will follow up outpatient. Daughter Rhiannon: [phone] Acute, acute on chronic, unstable/uncontrolled chronic problems/diagnoses: Nausea and vomiting with intermittent diarrhea ongoing for past 1 month Dehydration NICK (baseline Cr ~ 0.7) Acute vs. Chronic diarrea Atrial fibrillation with chronic digoxin therapy Bradycardia Compression fracture of L4 vertebrae which is a new finding Subacute L3 compression fracture, superior endplate compression fracture at L2 Left adrenal gland 4 cm mass which remains the same from previous exam (06/07/2017) Right renal stable 10 mm hyperdense lesion Bacteriuria Chronic thrombocytopenia Anemia Stable chronic problems affecting care, new non-acute diagnoses: Atrial fibrillation COPD Depression Essential hypertension Moderately severe TV regurgitation and pulmonology HTN Aortic Insufficiency Improved HFrEF (20%--> 66% 03/07) Tachycardia mediated cardiomyopathy, now recovered EF As a result of the above findings & factors, the following mgmt was pursued: - C Diff and Stool PCR negative - Has Bacteriuria without symptoms, urine culture pending - Cardio consulted, had already stopped Digoxin, Lisinopril, and Lasix just prior to admission, Lopressor on hold, she had been on Lopressor 200 mg BID for sometime, likely taper down if tachycardia controlled - HR 67 today - BNP 8,620 but patient states this is the best her legs have ever looked, suspected elevated BNP is likely stress response and not from fluid overload, BNP trending down - Nephro following - May need placement - Had an outpatient appointment with Urology on 04/18 but cancelled appointment because she was feeling better, Urology will arrange OP follow up - Urine VMA and Metanephrines already in process from OP - Aldosterone pending - am labs, replace lytes prn - PT/OT/CM/SW as appropriate - delirium precautions: limit night-time awakening - DVT prophylaxis: Eliquis Complexity: Acute illness or injury posing a threat to life or body function (HIGH). Risk: Admission to hospital-level care was considered or occurred (HIGH). Advance Directive: Full Anticipated Discharge - Date - 04/29 - 05/04 - Location - TBD - Pending the following - symptom improvement, Cardio and Nephro recs Total time spent (which include face to face and non face to face encounters) in minutes: 51 Toxic drug monitoring/narrow therapeutic index drug monitoring : # Drug name : Eliquis # Route administered : oral # Method of monitoring : H&H and renal function Extended Emergency Contact Information Primary Emergency Contact: Rhiannon Burciaga Address: [address] [place] [address] Mobile Relation: Child Kwan Aviles DO Division of Hospitalist Medicine Inpatient Medical Services/[facility] * Kwan Aviles DO - 04/28/2024 6:58 AM EST Hospitalist Progress Note - [facility] ([facility]) 04/28/2024 6:58 AM [phone]: Please page me for patient care issues. [phone]: Please page [facility] - [facility] for any issues. Subjective and Objective: Admit Date: 04/27/2024 PCP: Kory Ibarra DO Chief Complaint Patient presents with Fatigue Per family increased fatigued and generalized weakness x 1 month. States N/V/D and loss of appetitex 1 month. Was seen at her cardiologists office today & her digoxin level was elevated. Hx of Afib. History of an a recent adrenal mass finding. Adult diet Regular; Low Sodium (2 gm) Dietary Orders (From admission, onward) Start Ordered 04/28/24455 Adult diet Regular; Low Sodium (2 gm) Diet effective now Question Answer Comment Diet type Regular Sodium restriction: Low Sodium (2 gm) 04/28/24454 No intake/output data recorded. @IODETAILS@ @[email or web address]@ Medications: apixaban, 5 mg, Oral, BID atorvastatin, 10 mg, Oral, Nightly cetirizine, 5 mg, Oral, Nightly metoprolol tartrate, 100 mg, Oral, BID miconazole, , Topical, BID nystatin, , Topical, BID sertraline, 50 mg, Oral, Daily Recent Labs 04/27/24195604/28/24 0516 WBC 13.5* 9.7 HGB 11.6* 11.3* PLT 93* 83* Recent Labs 04/27/24 1050 04/27/24195604/28/24 0516 NA 143 142 142 K 4.2 3.7 4.1 CL 115* 114* 116* CO2 20* 20* 19* BUN 25* 27* 26* CREATININE 1.27* 1.84* 1.86* GLUCOSE 104 134* 87 Recent Labs 04/27/241956 AST 12 ALT 10 BILITOT 0.7 ALKPHOS 60 No results found for: TRIG, HDL, LDLCALC, CHOL No results found for: PHART, PO2ART, [id number] No results for input(s): INR in the last 72 hours. No results for input(s): CKTOTAL, CKMB, TROPONINI in the last 72 hours. No results for input(s): DDIMER in the last 72 hours. No results found for: HGBA1C No results found for: TSH Urine Culture: No results found for this or any previous visit. Objective: Vitals: BP (!) 130/44 Pulse 64 Temp 37.2 C (98.9 F) (Temporal) Resp 22 Ht 4' 11 (1.499 m) Wt 198 lb (89.8 kg) SpO2 96% BMI 39.99 kg/m Pulse Ox: SpO2 Av.3 % Min: 95 % Max: 97 % Supplemental O2: Past 24 hours events: GENERAL: appears comfortable and stated age CARDIOVASCULAR: regular RESPIRATORY: clear without rhonchi ABDOMEN: non distended EXTREMITIES: moving appropriately ANATOMY/TUBES/LINES: N/A Running Summary, Assessment, and Plan Alta is a 74 y.o. female with past medical history significant for atrial fibrillation, COPD, depression, essential hypertension who presented to the emergency room with complaint of generalized weakness, nausea vomiting and intermittent diarrhea which has been ongoing for past 1 month. Patient went to see her residential program coordinator who was concerned about digoxin level which she has been taking for underlying atrial fibrillation. Her Creatinine was 1.4 three weeks prior to presentation, baseline ~ 0.7. Her digoxin level was slightly elevated at 2.4 on 04/27 and was stopped by her Certified [employer] Engineer. She had been transferred to a residential for therapy and had been home for a couple of weeks. Walks witha walker. In ED, VSS. Cr 1.84, WBC 13.5, Hgb 11.6, Plts 93. UA loaded with bacteria but no LE, nitrites, or WBCs. Admitted for further evaluation and management. Currently having diarrhea, checking C Diff and Stool PCR Cardio and Nephro consulted Acute, acute on chronic, unstable/uncontrolled chronic problems/diagnoses: Nausea and vomiting with intermittent diarrhea ongoing for past 1 month Dehydration NICK (baseline Cr ~ 0.7) Acute vs. Chronic diarrea Atrial fibrillation with chronic digoxin therapy Bradycardia Compression fracture of L4 vertebrae which is a new finding Subacute L3 compression fracture, superior endplate compression fracture at L2 Left adrenal gland 4 cm mass which remains the same from previous exam (06/07/2017) Right renal stable 10 mm hyperdense lesion Bacteriuria Chronic thrombocytopenia Anemia Stable chronic problems affecting care, new non-acute diagnoses: Atrial fibrillation COPD Depression Essential hypertension Moderately severe TV regurgitation and pulmonology HTN Aortic Insufficiency HFpEF As a result of the above findings & factors, the following mgmt was pursued: - Cardio consulted, had already stopped Digoxin, Lisinopril, and Lasix just prior to admission - IV LR at 100 ml/hr - BNP 8,620 but patient states this is the best her legs have ever looked, suspected elevated BNP is likely stress response and not from fluid overload - Trend renal function, consult Nephro - Has Bacteriuria without symptoms, check urine culture - Currently having diarrhea, checking C Diff and Stool PCR - May need placement - Had an outpatient appointment with Urology on 04/18 but cancelled appointment because she was feeling better - am labs, replace lytes prn - PT/OT/CM/SW as appropriate - delirium precautions: limit night-time awakening - DVT prophylaxis: Eliquis Complexity: Acute illness or injury posing a threat to life or body function (HIGH). Risk: Admission to hospital-level care was considered or occurred (HIGH). Advance Directive: Full Anticipated Discharge - Date - 04/29 - 05/04 - Location - TBD - Pending the following - symptom improvement, Cardio and Nephro recs Total time spent (which include face to face and non face to face encounters) in minutes: 42 Toxic drug monitoring/narrow therapeutic index drug monitoring : # Drug name : Eliquis # Route administered : oral # Method of monitoring : H&H and renal function Extended Emergency Contact Information Primary Emergency Contact: Rhiannon Burciaga Address: [address] [place] [address] Mobile Relation: Child Kwan Aviles DO Division of Hospitalist Medicine Inpatient Medical Services/[facility] [place] documented in this [facility]02-[facility]-2025 Hospital Discharge instructions* Discharge Instructions* Betsey Blount, - 05/08/2024 3:58 PM EST Please make follow up appointment with primary care doctor to see them within 1- 2 weeks of discharge. Please call to schedule with your residential program coordinator as well as there were some medications changed on this admission. I am referring you to see a architectural project manager outpatient as well, who will help manage your inhalers. documented in this [facility]02-24-2025 Miscellaneous Notes* Care Coordination - Yeimi Perla RN - 05/08/2024 3:09 PM EST Care Management Progress Note Discharge order received. CM met with patient; she reports feeling well enough and ready to go home. Meds to beds delivered. Did not qualify for home O2 with respiratory, however has O2 for CPAP at home already. Patient daughter to provide transportation home. DC milestones complete. No further needs identified. Length of Stay (Days): 10 GMLOS: 4.4 * Care Plan - Brayden Quiñones RN - 05/07/2024 8:36 PM EST Problem: Pain - Adult Goal: Verbalizes/displays adequate comfort level or baseline comfort level Outcome: Progressing Problem: Safety - Adult Goal: Free from fall injury Outcome: Progressing Problem: Discharge Planning Goal: Discharge to home or other facility with appropriate resources Outcome: Progressing Problem: Chronic Conditions and Co-morbidities Goal: Patient's chronic conditions and co-morbidity symptoms are monitored and maintained or improved Outcome: Progressing Problem: Knowledge Deficit Goal: Patient/family/caregiver demonstrates understanding of disease process, treatment plan, medications, and discharge instructions Outcome: Progressing Problem: Potential for Compromised Skin Integrity Goal: Skin Integrity is Maintained or Improved Outcome: Progressing Goal: Nutritional status is improving Outcome: Progressing Problem: Urinary Incontinence Goal: Perineal skin integrity is maintained or improved Outcome: Progressing Problem: Potential for Falls Goal: I will remain free of falls Outcome: Progressing Problem: Discharge Barriers Goal: My discharge needs are met Outcome: Progressing Problem: Problem Interventions Goal: Assess Nutritional Intake Outcome: Progressing * Care Plan - Kya Morris RN - 05/07/2024 12:32 AM EST Problem: Pain - Adult Goal: Verbalizes/displays adequate comfort level or baseline comfort level Outcome: Progressing Flowsheets (Taken 05/06/20241999) Verbalizes/displays adequate comfort level or baseline comfort level: Encourage patient to monitor pain and request assistance Problem: Safety - Adult Goal: Free from fall injury Outcome: Progressing Problem: Discharge Planning Goal: Discharge to home or other facility with appropriate resources Outcome: Progressing Problem: Chronic Conditions and Co-morbidities Goal: Patient's chronic conditions and co-morbidity symptoms are monitored and maintained or improved Outcome: Progressing Problem: Knowledge Deficit Goal: Patient/family/caregiver demonstrates understanding of disease process, treatment plan, medications, and discharge instructions Outcome: Progressing Problem: Potential for Compromised Skin Integrity Goal: Skin Integrity is Maintained or Improved Outcome: Progressing Goal: Nutritional status is improving Outcome: Progressing Problem: Urinary Incontinence Goal: Perineal skin integrity is maintained or improved Outcome: Progressing Problem: Potential for Falls Goal: I will remain free of falls Outcome: Progressing Problem: Discharge Barriers Goal: My discharge needs are met Outcome: Progressing Problem: Problem Interventions Goal: Assess Nutritional Intake Outcome: Progressing * Care Coordination - Yeimi Perla RN - 05/05/2024 5:18 PM EST Care Management Progress Note Patient remains on MICU. Flu +. Plan for prednisone 40mg PO x 7 days. Tamiflu 75mg BID x 5 days. IVAncef Q8 for 7 days ending 05/10. O2 at 2L NC. PT recommends home with assist PRN. Medical floor transfer pending. Anticipate DC home when medically appropriate. CM to continue following. Length of Stay (Days): 7 GMLOS: 4.4 * Care Plan - Claudia Sosa RN - 05/05/2024 1:43 PM EST Problem: Pain - Adult Goal: Verbalizes/displays adequate comfort level or baseline comfort level Outcome: Progressing Flowsheets (Taken 05/05/2024 0800) Verbalizes/displays adequate comfort level or baseline comfort level: Encourage patient to monitor pain and request assistance Assess pain using appropriate pain scale Problem: Safety - Adult Goal: Free from fall injury Outcome: Progressing Flowsheets (Taken 05/05/2024 1100) Free from fall injury: Instruct family/caregiver on patient safety Based on caregiver fall risk screen, instruct family/caregiver to ask for assistance with transferring infant if caregiver noted to have fall risk factors Problem: Discharge Planning Goal: Discharge to home or other facility with appropriate resources Outcome: Progressing Problem: Chronic Conditions and Co-morbidities Goal: Patient's chronic conditions and co-morbidity symptoms are monitored and maintained or improved Outcome: Progressing Problem: Knowledge Deficit Goal: Patient/family/caregiver demonstrates understanding of disease process, treatment plan, medications, and discharge instructions Outcome: Progressing Problem: Potential for Compromised Skin Integrity Goal: Skin Integrity is Maintained or Improved Outcome: Progressing Problem: Urinary Incontinence Goal: Perineal skin integrity is maintained or improved Outcome: Progressing Problem: Potential for Falls Goal: I will remain free of falls Outcome: Progressing Problem: Discharge Barriers Goal: My discharge needs are met Outcome: Progressing Problem: Problem Interventions Goal: Assess Nutritional Intake Outcome: Progressing * Care Coordination - MARIUSZ Spear CNP - 05/05/2024 8:35 AM EST ABCDEF Bundle Assessment A=Assess, Prevent and Manage Pain Most Recent Pain Scale: No/denies pain Numeric Pain Rating: Pain Score: 0 - No pain Ventilation Status: CPOT Score: Pain Interventions: Pain controlled. No new analgesics ordered Scheduled Medications: [Held by provider] apixaban, 5 mg, Oral, BID atorvastatin, 10 mg, Oral, Nightly cetirizine, 5 mg, Oral, Nightly folic acid, 1 mg, Oral, Daily levalbuterol, 1.25 mg, Nebulization, q4h WA metoprolol tartrate, 75 mg, Oral, BID miconazole, , Topical, BID oseltamivir, 75 mg, Oral, BID potassium phosphates 10 mmol in sodium chloride 0.9 % 100 mL IVPB, 10 mmol, IntraVENous, Once predniSONE, 40 mg, Oral, Daily sertraline, 50 mg, Oral, Daily sodium chloride, 4 mL, Nebulization, BID tiotropium, 2 puff, Inhalation, Daily PRN Medications: acetaminophen, 650 mg, Oral, q6h PRN Or acetaminophen, 650 mg, Rectal, q6h PRN guaiFENesin-dextromethorphan, 5 mL, Oral, q4h PRN, 5 mL at 04/30/242136 loperamide, 2 mg, Oral, q4h PRN ondansetron ODT, 4 mg, Oral, q8h PRN, 4 mg at 05/02/24 182 Or ondansetron, 4 mg, IntraVENous, q6h PRN polyethylene glycol (PEG) 3350, 17 g, Oral, Daily PRN B=Both Spontaneous Awakening and Breathing Trials Safety Screen SAT: SAT Outcome: C=Choice of Sedation RASS: Alert & Calm-Spontaneously pays attention to caregiver Continuous Infusions: D=Delirium Overall CAM-ICU: Negative E=Exercise and Early Mobility Early Mobility/Exercise Safety Screen: Activity: Bed mobility -[facility] Score: Bed activity LDAs Peripheral IV 04/30/24 Right Forearm (Active) Number of days: 4 Peripheral IV 05/02/24 Anterior;Distal;Right;Upper Arm (Active) Number of days: 2 External Urinary Catheter (Active) Number of days: 1 * Care Plan - Tiffani Gan RN - 05/05/2024 5:43 AM EST Problem: Pain - Adult Goal: Verbalizes/displays adequate comfort level or baseline comfort level Outcome: Progressing Problem: Safety - Adult Goal: Free from fall injury Outcome: Progressing Problem: Discharge Planning Goal: Discharge to home or other facility with appropriate resources Outcome: Progressing Problem: Chronic Conditions and Co-morbidities Goal: Patient's chronic conditions and co-morbidity symptoms are monitored and maintained or improved Outcome: Progressing Problem: Knowledge Deficit Goal: Patient/family/caregiver demonstrates understanding of disease process, treatment plan, medications, and discharge instructions Outcome: Progressing Problem: Potential for Compromised Skin Integrity Goal: Skin Integrity is Maintained or Improved Outcome: Progressing Goal: Nutritional status is improving Outcome: Progressing Problem: Urinary Incontinence Goal: Perineal skin integrity is maintained or improved Outcome: Progressing Problem: Potential for Falls Goal: I will remain free of falls Outcome: Progressing Problem: Discharge Barriers Goal: My discharge needs are met Outcome: Progressing Problem: Problem Interventions Goal: Assess Nutritional Intake Outcome: Progressing * Care Plan - Ying Francisco RN - 05/04/2024 5:35 PM EST Pt hemodynamically stable-Transfer orders written to [facility]-Daughter here visiting and aware and also updated * Care Coordination - Yeimi Perla RN - 05/04/2024 2:21 PM EST Care Managment Initial Assessment Date: 05/04/2024 Patient Name: Alta Baker : 1950 Patient Information Source of Information: Patient Cognition/Language: WFL - Within Functional Limits Confirmation of Payer with patient/family: Yes Payer Name: [facility] : No Confirmation of Primary Care Physician: Confirmed PCP Name: Dr. Ibarra Primary Caregiver: Self If assistance needed, confirmed caregiver ready, willing and able to care for patient at discharge:Yes Confirmed with: patients daughter and/or grandchildren assist patient as needed Living Arrangements Current Residence: Private Residence Plan to Return: Yes Lives with: Children, Extended family members Support Systems: Children, Family members Activities of Daily Living Ambulation: Assistance (patient reports using walker) Bathing/Dressing: Independent Elimination/Continence/Toileting: Independent Feeding: Independent Who Assists with Activities of Daily Living: Daughter/family as needed Instrumental Activities of Daily Living Prescription Coverage: Yes Pharmacy Used: [facility] [address] Medication Management: Assistance Type: Dose packaging system Who assists with medication securing and setup?: daughter manages medications Transportation/Shopping: Assistance Provider Transportation/Shopping Assistance Provider Name: daughter/family provides most transportation; patient states she has her own car and was driving up till recently Transportation Mode: Car Needs Assistance with Transportation at Discharge: No Meal Preparation: Independent (shares responsibilites with daughter and grandchildren she lives with) Laundry/Cleaning: Independent Finances/Bill Paying: Independent Communication: Independent Types of Care Services/Equipment Utilized Dialysis Type: NA Durable Medical Equipment: Walker, Oxygen (Continuous or prn), CPap Oxygen Flow Rate: 3-5L as needed Patient's Goal/Discharge Plan Patient expects to be discharged to: home Discharge Planning Actions: Continue to follow Social Work Referral for: Food Insecurities, Financial Concerns Additional Information: Patient admitted from home with daughter and grandchildren with weakness. Found to be Flu +. Initially on GMF then transferred to ICU for NIV. Off NIV now and medical floor transfer pending. IVAB ordered and PO Tamiflu and steroids. Patient refused home care. DC plan - return home with family when medically appropriate. CM to continue following for DC planning * Care Coordination - Tiffani Galarza APRN - DESKTOP ENGINEER - 05/04/2024 12:36 PM EST ABCDEF Bundle Assessment A=Assess, Prevent and Manage Pain Most Recent Pain Scale: No/denies pain Numeric Pain Rating: Pain Score: 0 - No pain Ventilation Status: CPOT Score: Pain Interventions: Pain controlled. No new analgesics ordered Scheduled Medications: [Held by provider] apixaban, 5 mg, Oral, BID atorvastatin, 10 mg, Oral, Nightly cefepime, 2,000 mg, IntraVENous, q8h cetirizine, 5 mg, Oral, Nightly folic acid, 1 mg, Oral, Daily levalbuterol, 1.25 mg, Nebulization, q4h WA metoprolol tartrate, 75 mg, Oral, BID miconazole, , Topical, BID oseltamivir, 75 mg, Oral, BID predniSONE, 40 mg, Oral, Daily sertraline, 50 mg, Oral, Daily sodium chloride, 4 mL, Nebulization, BID tiotropium, 2 puff, Inhalation, Daily PRN Medications: acetaminophen, 650 mg, Oral, q6h PRN Or acetaminophen, 650 mg, Rectal, q6h PRN guaiFENesin-dextromethorphan, 5 mL, Oral, q4h PRN, 5 mL at 04/30/24 2137 loperamide, 2 mg, Oral, q4h PRN ondansetron ODT, 4 mg, Oral, q8h PRN, 4 mg at 05/02/24 1822 Or ondansetron, 4 mg, IntraVENous, q6h PRN polyethylene glycol (PEG) 3350, 17 g, Oral, Daily PRN B=Both Spontaneous Awakening and Breathing Trials Safety Screen SAT: SAT Outcome: C=Choice of Sedation RASS: Alert & Calm-Spontaneously pays attention to caregiver Continuous Infusions: D=Delirium Overall CAM-ICU: Negative E=Exercise and Early Mobility Early Mobility/Exercise Safety Screen: Activity: Transfer to chair -[facility] Score: Bed activity LDAs Peripheral IV 04/30/24 Right Forearm (Active) Number of days: 4 Peripheral IV 05/02/24 Anterior;Distal;Right;Upper Arm (Active) Number of days: 1 External Urinary Catheter (Active) Number of days: 1 * Care Plan - Ya Vásquez RN - 05/04/2024 5:07 AM EST Problem: Pain - Adult Goal: Verbalizes/displays adequate comfort level or baseline comfort level Outcome: Progressing Flowsheets (Taken 05/04/2024 0507) Verbalizes/displays adequate comfort level or baseline comfort level: Encourage patient to monitor pain and request assistance Assess pain using appropriate pain scale Administer analgesics based on type and severity of pain and evaluate response Implement non-pharmacological measures as appropriate and evaluate response Problem: Safety - Adult Goal: Free from fall injury Outcome: Progressing Flowsheets (Taken 05/04/2024 0507) Free from fall injury: Instruct family/caregiver on patient safety Based on caregiver fall risk screen, instruct family/caregiver to ask for assistance with transferring infant if caregiver noted to have fall risk factors Problem: Knowledge Deficit Goal: Patient/family/caregiver demonstrates understanding of disease process, treatment plan, medications, and discharge instructions Outcome: Progressing Flowsheets (Taken 05/04/2024 0502) Patient/family/caregiver demonstrates understanding of disease process, treatment plan, medications, and discharge instructions: Provide teaching via preferred learning methods Provide teaching at level of understanding Complete learning assessment and assess knowledge base * Care Coordination - Chelsey Dasilva MD - 05/03/2024 2:48 PM EST Family Communication Number Called: In person Name of Designated Family Battery Container Inspector: Surekha Burciaga Relationship: daughter Phone Call Outcome: I spoke with the individual listed above. Family Battery Container Inspector Updated on the Following: Known Co-morbidties; copd and pulmonary hypertension, HFpeF, afibnow admitted with digoxin toxicityand nick, improved, but hospital stay complicated by Influenza A infection, MSSA pneumonia, acute onch hypercapnic respiratory failure and acute on ch thrombocytopenia. I explained that she is at risk for deterioration of respiratory status and need for intubation andmechanical ventilation. The cause of her ch thrombocytopenia is not obvious. Acute drop is probably sec to pneumonia and influenza but are monitoring closely and will do further investigations if remain persists / remains unexplained. All questions answered. * Care Plan - Ally Ledesma RN - 05/02/2024 9:00 AM EST Problem: Pain - Adult Goal: Verbalizes/displays adequate comfort level or baseline comfort level Outcome: Progressing Problem: Safety - Adult Goal: Free from fall injury Outcome: Progressing Problem: Discharge Planning Goal: Discharge to home or other facility with appropriate resources Outcome: Progressing Problem: Chronic Conditions and Co-morbidities Goal: Patient's chronic conditions and co-morbidity symptoms are monitored and maintained or improved Outcome: Progressing Problem: Knowledge Deficit Goal: Patient/family/caregiver demonstrates understanding of disease process, treatment plan, medications, and discharge instructions Outcome: Progressing Problem: Potential for Compromised Skin Integrity Goal: Skin Integrity is Maintained or Improved Outcome: Progressing Goal: Nutritional status is improving Outcome: Progressing Problem: Urinary Incontinence Goal: Perineal skin integrity is maintained or improved Outcome: Progressing Problem: Potential for Falls Goal: I will remain free of falls Outcome: Progressing Problem: Discharge Barriers Goal: My discharge needs are met Outcome: Progressing Problem: Problem Interventions Goal: Assess Nutritional Intake Outcome: Progressing Goal: Promote nutritional intake Outcome: Progressing * Home Care - Candido Watt RN - 05/01/2024 2:36 PM EST Discussed Home Care Services available to patient post DC from the hospital. Educated the patient on the services that are provided, objective of home care, and reason for the services. At this time the patient states they feel home care is not necessary due to having a nurse that visits her at home. The patient politely refused the home care services. The patient was educated that should any needs arise post DC to follow up with their PCP. The patient was able to verbalize understanding. PT states home with assist PRN. Home care to sign off. Please re-consult should any other needs arise prior to DC. Branch Controller following case for Discharge Needs. * Care Plan - Ingris Quintero RN - 05/01/2024 1:25 PM EST Problem: Pain - Adult Goal: Verbalizes/displays adequate comfort level or baseline comfort level Outcome: Progressing Problem: Safety - Adult Goal: Free from fall injury Outcome: Progressing Problem: Discharge Planning Goal: Discharge to home or other facility with appropriate resources Outcome: Progressing Problem: Chronic Conditions and Co-morbidities Goal: Patient's chronic conditions and co-morbidity symptoms are monitored and maintained or improved Outcome: Progressing Problem: Knowledge Deficit Goal: Patient/family/caregiver demonstrates understanding of disease process, treatment plan, medications, and discharge instructions Outcome: Progressing * Care Coordination - Fatuma Esposito RN - 05/01/2024 1:15 PM EST Care Management Progress Note Pt adm for tx/evaluation of dehydration/bradycardia/NICK/generalized weakness. Cardiology following and adjusting meds prn. PT/OT following- recommending home with assist prn/HC. Pt was modified independent with assessment, ambulating 178ft. Pt form home with dtr at baseline. [facility] following forpossible services. Length of Stay (Days): 3 GMLOS: 3 * Care Plan - Niya Graham RN - 05/01/2024 5:41 AM EST Problem: Pain - Adult Goal: Verbalizes/displays adequate comfort level or baseline comfort level 05/01/2024540 by Niya Graham RN Outcome: Progressing 04/30/20242319 by Niya Graham RN Outcome: Progressing Problem: Safety - Adult Goal: Free from fall injury 05/01/2024540 by Niya Graham RN Outcome: Progressing 04/30/20242319 by Niya Graham RN Outcome: Progressing Problem: Discharge Planning Goal: Discharge to home or other facility with appropriate resources 05/01/2024540 by Niya Graham RN Outcome: Progressing 04/30/20242319 by Niya Graham RN Outcome: Progressing Problem: Chronic Conditions and Co-morbidities Goal: Patient's chronic conditions and co-morbidity symptoms are monitored and maintained or improved 05/01/2024540 by Niya Graham RN Outcome: Progressing 04/30/20242319 by Niya Graham RN Outcome: Progressing Problem: Knowledge Deficit Goal: Patient/family/caregiver demonstrates understanding of disease process, treatment plan, medications, and discharge instructions 05/01/2024540 by Niya Graham RN Outcome: Progressing 04/30/20242319 by Niya Graham RN Outcome: Progressing Problem: Potential for Compromised Skin Integrity Goal: Skin Integrity is Maintained or Improved 05/01/2024 05 by Niya Graham RN Outcome: Progressing 04/30/20242319 by Niya Graham RN Outcome: Progressing Goal: Nutritional status is improving 05/01/2024540 by Niya Graham RN Outcome: Progressing 04/30/20242319 by Niya Graham RN Outcome: Progressing Problem: Urinary Incontinence Goal: Perineal skin integrity is maintained or improved 05/01/2024540 by Niya Graham RN Outcome: Progressing 04/30/20242319 by Niya Graham RN Outcome: Progressing Problem: Potential for Falls Goal: I will remain free of falls 05/01/2024540 by Niya Graham RN Outcome: Progressing 04/30/20242319 by Niya Graham RN Outcome: Progressing Problem: Discharge Barriers Goal: My discharge needs are met 05/01/2024540 by Niya Graham RN Outcome: Progressing 04/30/20242319 by Niya Graham RN Outcome: Progressing Problem: Problem Interventions Goal: Assess Nutritional Intake 05/01/2024540 by Niya Graham RN Outcome: Progressing 04/30/20242319 by Niya Graham RN Outcome: Progressing Goal: Promote nutritional intake 05/01/2024540 by Niya Graham RN Outcome: Progressing 04/30/20242319 by Niya Graham RN Outcome: Progressing * Care Plan - Niya Graham RN - 04/30/2024 11:20 PM EST Problem: Pain - Adult Goal: Verbalizes/displays adequate comfort level or baseline comfort level Outcome: Progressing Problem: Safety - Adult Goal: Free from fall injury Outcome: Progressing Problem: Discharge Planning Goal: Discharge to home or other facility with appropriate resources Outcome: Progressing Problem: Chronic Conditions and Co-morbidities Goal: Patient's chronic conditions and co-morbidity symptoms are monitored and maintained or improved Outcome: Progressing Problem: Knowledge Deficit Goal: Patient/family/caregiver demonstrates understanding of disease process, treatment plan, medications, and discharge instructions Outcome: Progressing Problem: Potential for Compromised Skin Integrity Goal: Skin Integrity is Maintained or Improved Outcome: Progressing Goal: Nutritional status is improving Outcome: Progressing Problem: Urinary Incontinence Goal: Perineal skin integrity is maintained or improved Outcome: Progressing Problem: Potential for Falls Goal: I will remain free of falls Outcome: Progressing Problem: Discharge Barriers Goal: My discharge needs are met Outcome: Progressing Problem: Problem Interventions Goal: Assess Nutritional Intake Outcome: Progressing Goal: Promote nutritional intake Outcome: Progressing * Care Plan - Terri Henao PA-C - 04/30/2024 12:35 PM EST This is a brief non-billable nephrology note Chart and labs reviewed Renal function recovering, not far from baseline 0.6-0.8 Continue to monitor creatinine trend off IV fluids Noted rapid response called this morning for bradycardia, patient asymptomatic, graduate fellow notified, CPAP orders placed We will follow along intermittently. Please do not hesitate to call with any questions or concerns. DORIS Oro PA-C [facility] Office [phone] * Care Plan - Ingris Quintero RN - 04/30/2024 12:34 PM EST Problem: Pain - Adult Goal: Verbalizes/displays adequate comfort level or baseline comfort level Outcome: Progressing Problem: Safety - Adult Goal: Free from fall injury Outcome: Progressing Problem: Discharge Planning Goal: Discharge to home or other facility with appropriate resources Outcome: Progressing Problem: Chronic Conditions and Co-morbidities Goal: Patient's chronic conditions and co-morbidity symptoms are monitored and maintained or improved Outcome: Progressing Problem: Knowledge Deficit Goal: Patient/family/caregiver demonstrates understanding of disease process, treatment plan, medications, and discharge instructions Outcome: Progressing * Rapid Response Note - Lola Ochoa RN - 04/30/2024 5:10 AM EST Called to bedside by primary RN for concerns of pt HR dropping into 20s-30s while sleeping. Upon assessment, pt AxO4. Pt VSS while awake, pt BP 134/57 HR 71, SpO2 92% RA, pt denies any SOB orCP. EKG ordered and completed. post doctoral fellow notified, Dr. Martinez notified. Pt home CPAP orders placed. No further interventions at this time. Floor RN to call with any further concerns. * Rapid Response Note - Lola Ochoa RN - 04/30/2024 2:09 AM EST Notified of primary RN concern of pt low HR. Per primary RN pt HR will drop to 40s-50s while resting. Upon assessment, Pt AxO4. Pt denies any dizziness, SOB or CP. Pt VSS, HR is 64 and pt on telemetry. Dr. Martinez was notified previously at 0000 for pt low HR on tele, EKG was ordered and showed rate controlled a. Fib. Dr. Martinez notified at 0200 by primary RN. No further interventions at this time. Primary RN instructed to call with any further concerns. * Care Plan - Niya Graham RN - 04/29/2024 10:55 PM EST Problem: Pain - Adult Goal: Verbalizes/displays adequate comfort level or baseline comfort level Outcome: Progressing Problem: Safety - Adult Goal: Free from fall injury Outcome: Progressing Problem: Discharge Planning Goal: Discharge to home or other facility with appropriate resources Outcome: Progressing Problem: Chronic Conditions and Co-morbidities Goal: Patient's chronic conditions and co-morbidity symptoms are monitored and maintained or improved Outcome: Progressing Problem: Knowledge Deficit Goal: Patient/family/caregiver demonstrates understanding of disease process, treatment plan, medications, and discharge instructions Outcome: Progressing Problem: Potential for Compromised Skin Integrity Goal: Skin Integrity is Maintained or Improved Outcome: Progressing Goal: Nutritional status is improving Outcome: Progressing Problem: Urinary Incontinence Goal: Perineal skin integrity is maintained or improved Outcome: Progressing Problem: Potential for Falls Goal: I will remain free of falls Outcome: Progressing Problem: Discharge Barriers Goal: My discharge needs are met Outcome: Progressing * Care Plan - Ingris Quintero RN - 04/29/2024 2:18 PM EST Problem: Pain - Adult Goal: Verbalizes/displays adequate comfort level or baseline comfort level Outcome: Progressing Problem: Safety - Adult Goal: Free from fall injury Outcome: Progressing Problem: Discharge Planning Goal: Discharge to home or other facility with appropriate resources Outcome: Progressing * Care Plan - Niya Graham RN - 04/29/2024 2:38 AM EST Problem: Pain - Adult Goal: Verbalizes/displays adequate comfort level or baseline comfort level Outcome: Progressing Problem: Safety - Adult Goal: Free from fall injury Outcome: Progressing Problem: Discharge Planning Goal: Discharge to home or other facility with appropriate resources Outcome: Progressing Problem: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 tenderness. Musculoskeletal: General: Normal range of motion. Cervical back: Normal range of motion. Right lower leg: No edema (chronic dry skin changes). Left lower leg: No edema. Skin: General: Skin is warm and dry. Neurological: Mental Status: She is alert and oriented to person, place, and time. Laboratory Tests: Lab Results Component Value Date WBC 10.7 04/03/2024 HGB 12.5 04/03/2024 HCT 40.4 04/03/2024 MCV 89.6 04/03/2024 PLT 98 (L) 04/03/2024 Lab Results Component Value Date GLUCOSE 101 04/18/2024 CALCIUM 8.8 04/18/2024 NA 138 04/18/2024 K 4.0 04/18/2024 CO2 22 (L) 04/18/2024 CL 111 (H) 04/18/2024 BUN 30 (H) 04/18/2024 CREATININE 1.84 (H) 04/18/2024 @LASTCMP@ Lab Results Component Value Date CHOL 123 07/01/2021 CHOL 127 12/30/2020 CHOL 134 05/20/2020 Lab Results Component Value Date TRIG 141 07/01/2021 TRIG 167 (A) 12/30/2020 TRIG 154 (A) 05/20/2020 Lab Results Component Value Date HDL 31 (L) 07/01/2021 HDL 31 (L) 12/30/2020 HDL 33 (L) 05/20/2020 No results found for: LDLCALC No results found for: BNP Cardiac Tests: Echo 10/13/21: SUMMARY: 1. Technically difficult study. 2. Left ventricle: Systolic function is normal by the biplane method of disks. The estimated ejection fraction is 59%. 3. Right ventricle: The cavity size is normal. Systolic function is mildly decreased. Right ventricular systolic pressure is moderately to severely increased. The estimated peak pressure is 63 mm Hg. 4. Mitral valve: There is no evidence for stenosis. 5. Tricuspid valve: There is moderate, 2+ regurgitation directed eccentrically. 6. Inferior vena cava: The vessel is dilated. The IVC collapses by less than 50% with inspiration, consistent with elevated central venous pressure. Last Echo 02/14/24: Left Ventricle: Left ventricle size is normal. Normal wall thickness. Normal left ventricular systolic function. EF by 2D Simpsons Biplane is 66%. Normal wall motion. Right Ventricle: Right ventricle size is normal. Reduced systolic function. Aortic Valve: Moderate (2+) regurgitation. Mitral Valve: Valve structure is normal. MV mean gradient is 5 mmHg. Thickened leaflets. Calcified leaflets. Mild to moderate (1-2+) regurgitation. Mild stenosis noted. MV mean gradient is 5 mmHg. Tricuspid Valve: Moderately severe (3+) regurgitation. Reversed hepatic vein systolic flow. RVSP may be underestimated in the setting of severe TR. RVSP is 60 mmHg. Left Atrium: Left atrium is severely dilated. LA Vol Index A/L is 75 mL/m2. Right Atrium: Right atrium is severely dilated. Pericardium: Small (<1 cm) circumferential pericardial effusion present. Assessment and Plan: 1. Permanent atrial fibrillation (HCC) Permanent, nonvalvular. Heart rate remains controlled. On Eliquis 5 mg PO BID. Tolerating it well. No side effects. No bleeding -Continue metoprolol 100 mg BID -Stop digoxin as she has recent NICK and poor po intake . This increases her risk for digoxin related toxicity. Anyways her rates are well controlled. Discontinue digoxin. Hb 12.5 Plt 98 stble (02/22/2024) [id number] Score for Atrial Fibrillation Stroke Risk Risk Factors Component Value C CHF Yes 1 H HTN Yes 1 A2 Age >= 75 No, (71 y.o.) 0 D DM No 0 S2 Prior Stroke/TIA No 0 V Vascular Disease No 0 A Age 65-74 Yes, (71 y.o.) 1 Sc Sex female 1 [id number] Score 4 2. Anticoagulant long-term use On eliquis 5 mg PO BID, CBC stable. No falls 3. Moderately severe TV regurgitation/pulmonology HTN RVSP is 60 mmHg Multifactorial - Obesity,CHRISTIANNE Recommend CPAP compliance for CHRISTIANNE. 4. 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 Now recovered LVEf, 66% (12.2.24) No current heart failure symptoms . She has on going nausea vomiting and weight loss for past 1.5 months. Labs a week ago with NICK> I will stop lasix and lisinopril. We will get a BMP today and depending on results will have her follow up with PCP. Continue metoprolol at current dose 5. Aortic Insufficiency Aortic valve with moderate regurgitation per echo 03/07 , stable RTC In 6 months RTC in 1 month documented in this encounterSMiddletown [id number] Telephone encounter Note* Telephone Encounter - Angelina Julian RN - 04/25/2024 8:40 AM EST I noticed it appears patient hadn't reviewed her labs and Dr Ibarra's office unable to reach pt d/t mailbox full-LMOM for Rhiannon relaying Dr Ibarra said Digoxin level high normal so continue the 125 mcg dosage for her atrial fibrillation.. Elevated creatinine on Lasix 40 mg a day so I recommend holding that med for 2 days and then decreasing to 20 mg or 1/2 tablet each day. Follow- up with cardiology this coming week on their opinion on amount of diuretic she needs. Please keep follow-up with Dr Moon on and will further address. If further questions, please call the [place] office back (hard to reach me at [place]). [facility] [id number] Miscellaneous Notes* Telephone Encounter - Angelina Julian RN - 04/25/2024 8:40 AM EST I noticed it appears patient hadn't reviewed her labs and Dr Ibarra's office unable to reach pt d/t mailbox full-LMOM for Rhiannon relaying Dr Ibarra said Digoxin level high normal so continue the 125 mcg dosage for her atrial fibrillation.. Elevated creatinine on Lasix 40 mg a day so I recommend holding that med for 2 days and then decreasing to 20 mg or 1/2 tablet each day. Follow- up with cardiology this coming week on their opinion on amount of diuretic she needs. Please keep follow-up with Dr Moon on and will further address. If further questions, please call the [place] office back (hard to reach me at [place]). * Telephone Encounter - Angelina Julian RN - 04/05/2024 2:09 PM EST Noted. * Telephone Encounter - Amara Langford - 04/05/2024 2:07 PM EST Called daughter, and left message that she is now scheduled to see Dr. Moon in [place] 04/27/24 at 9:00 am. * Telephone Encounter - Angelina Julian RN - 04/05/2024 1:05 PM EST I reviewed labs from 04/03/24 and called and spoke to Rhiannon-Cr elevated at 1.40, K+ 5.6. Plateletsremain low, but stable at 98. I also saw Dr Ibarra sent a note this AM that hasn't been viewed yet, so I relayed it Chemistries show excess diuretic therapy with elevated creatinine and potassium. She is to decrease Lasix to only 40 mg each day after holding Lasix for 36 hours. She should stop all potassium. Her Lanoxin level is high normal but should improve with less Lasix and improved renal function so continue only Lanoxin 125 mcg/day. Thyroid function normal. A1c normal reflecting no diabetes. CBC is generally improved with normal hemoglobin but platelets are trending low as before. However she needs her anticoagulation therapy. She needs a recheck BMP in 2 weeks on these changes. I let her know that I agree-this is a good plan and what our office would recommend as well. 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 Will continue other medications the same. Plan to repeat labs in 2 weeks for further recommendations. She will call us if any cardiac issues in the meantime; we will get her scheduled on 04/27/[address] Moon once the books are opened. She was thankful for the call. * Telephone Encounter - Amara Langford - 04/05/2024 12:51 PM EST Called daughter, and cancelled 04/06/[address] Moon in [place] because she will not be in the office. I offered sooner appointment with LEROY, but she would prefer to see Dr. Moon 04/27/24, and I will call when the schedule is open. She mentioned that she recently had abnormal labs that were ordered by PCP. Her platelets and potassium were elevated. She wondered if her Eliquis should be adjusted, and if her Potassium should be reduced. documented in this [facility]01-30-2025 Telephone encounter Note* Telephone Encounter - Angelina Julian RN - 04/13/2024 12:05 PM EST Noted; thank you. [facility] [id number] Miscellaneous Notes* Telephone Encounter - Angelina Julian RN - 04/13/2024 12:05 PM EST Noted; thank you. * Telephone Encounter - Amara Langford - 04/13/2024 10:03 AM EST Daughter called and requested refill of Eliquis 5 mg to be sent to [facility]. I explained that prescription was sent to [facility] 02/05. Daughter thinks she was approved for assistance with [facility]. [facility] spoke [facility] Marylou her approval in 2022, but with her prescription coverage there is no cost for Eliquis. She will send Eliquis #90 via UPS, and she should get it tomorrow. Called daughter and explained this. She is out of medication, discussed with nurse, and offered Sample of Eliquis 5 mg #14 lot# [id number] and expiration 04/09. 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 documented in this encounterSMiddletown [id number] Telephone encounter Note* Telephone Encounter - Amara Langford - 04/13/2024 10:03 AM EST Daughter called and requested refill of Eliquis 5 mg to be sent to [facility]. I explained that prescription was sent to [facility] 02/05. Daughter thinks she was approved for assistance with [employer]. [facility] spoke to Marylou her approval in 2022, but with her prescription coverage there is no cost for Eliquis. She will send Eliquis #90 via UPS, and she should get it tomorrow. Called daughter and explained this. She is out of medication, discussed with nurse, and offered Sample of Eliquis 5 mg #14 lot# [id number] and expiration 04/09. 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 [facility] [id number] Telephone encounter Note* Telephone Encounter - Laurie Burgess LPN - 04/06/2024 10:22 AM EST Placed call to patient to discuss provider direction. Message left on voicemail to return call. Patient can also call us back if any questions. [facility] [id number] Miscellaneous Notes* Telephone Encounter - Laurie Burgess LPN - 04/06/2024 10:22 AM EST Placed call to patient to discuss provider direction. Message left on voicemail to return call. Patient can also call us back if any questions. * Telephone Encounter - Laurie Burgess LPN - 04/04/2024 1:59 PM EST Called patient and no answer and voice mail is full, also sent patient a [employer] message. * Telephone Encounter - Laurie Burgess LPN - 04/04/2024 1:58 PM EST ----- Message from Kory Ibarra DO sent at 04/03/2024 6:31 PM EST ----- Call patient's daughter or patient to tell him I did prescribe a once a week medicine for her osteoporosis called Actonel. She should take that weekly as directed. Also she should take vitamin D 2000units a day along with calcium 800 mg daily to prevent further osteoporosis. documented in this encounterSMiddletown [id number] Telephone encounter Note* Telephone Encounter - Angelina Julian RN - 04/05/2024 2:09 PM EST Noted. [facility] [id number] Telephone encounter Note* Telephone Encounter - Amara Langford - 04/05/2024 2:07 PM EST Called daughter, and left message that she is now scheduled to see Dr. Moon in [place] 04/27/24 at 9:00 am. [facility] [id number] Telephone encounter Note* Telephone Encounter - Angelina Julian RN - 04/05/2024 1:05 PM EST I reviewed labs from 04/03/24 and called and spoke to Rhiannon-Cr elevated at 1.40, K+ 5.6. Plateletsremain low, but stable at 98. I also saw Dr Ibarra sent a note this AM that hasn't been viewed yet, so I relayed it Chemistries show excess diuretic therapy with elevated creatinine and potassium. She is to decrease Lasix to only 40 mg each day after holding Lasix for 36 hours. She should stop all potassium. Her Lanoxin level is high normal but should improve with less Lasix and improved renal function so continue only Lanoxin 125 mcg/day. Thyroid function normal. A1c normal reflecting no diabetes. CBC is generally improved with normal hemoglobin but platelets are trending low as before. However she needs her anticoagulation therapy. She needs a recheck BMP in 2 weeks on these changes. I let her know that I agree-this is a good plan and what our office would recommend as well. 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 Will continue other medications the same. Plan to repeat labs in 2 weeks for further recommendations. She will call us if any cardiac issues in the meantime; we will get her scheduled on 04/27/[address] Moon once the books are opened. She was thankful for the call. [facility] [id number] Telephone encounter Note* Telephone Encounter - Amara Langford - 04/05/2024 12:51 PM EST Called daughter, and cancelled 04/06/[address] Moon in [place] because she will not be in the office. I offered sooner appointment with LEROY, but she would prefer to see Dr. Moon 04/27/24, and I will call when the schedule is open. She mentioned that she recently had abnormal labs that were ordered by PCP. Her platelets and potassium were elevated. She wondered if her Eliquis should be adjusted, and if her Potassium should be reduced. [facility] [id number] Telephone encounter Note* Telephone Encounter - Laurie Burgess LPN - 04/04/2024 1:59 PM EST Called patient and no answer and voice mail is full, also sent patient a Horticultural Asset Managementhart message. [facility] [id number] Miscellaneous Notes* Telephone Encounter - Laurie Burgess LPN - 04/04/2024 1:59 PM EST Called patient and no answer and voice mail is full, also sent patient a Horticultural Asset Managementhart message. * Telephone Encounter - Laurie Burgess LPN - 04/04/2024 1:58 PM EST ----- Message from Kory Ibarra DO sent at 04/03/2024 6:31 PM EST ----- Call patient's daughter or patient to tell him I did prescribe a once a week medicine for her osteoporosis called Actonel. She should take that weekly as directed. Also she should take vitamin D 2000units a day along with calcium 800 mg daily to prevent further osteoporosis. documented in this [facility]01-21-2025 Telephone encounter Note* Telephone Encounter - Laurie Burgess LPN - 04/04/2024 1:58 PM EST ----- Message from Kory Ibarra DO sent at 04/03/2024 6:31 PM EST ----- Call patient's daughter or patient to tell him I did prescribe a once a week medicine for her osteoporosis called Actonel. She should take that weekly as directed. Also she should take vitamin D 2000units a day along with calcium 800 mg daily to prevent further osteoporosis. [facility] [id number] History of Present illness Narrative* Kory Ibarra DO - 04/03/2024 10:00 AM EST Images from the original note were not included. [facility] - [address] [facility] [address] Visit type: Established Patient Reason for Visit: Hospital Follow-up (02/14/24 seen at [facility] for Back pain and high white blood count ) Assessment / Plan: Alta was seen today for hospital follow-up. Diagnoses and all orders for this visit: Osteoporotic compression fracture of vertebra with routine healing, subsequent encounter (Primary) Comments: Improving, begin Actonel continue vitamin D and calcium and weightbearing exercise Venous insufficiency Comments: Stable on Lasix Anticoagulant long-term use Permanent atrial fibrillation (HCC) Comments: Stable, continue Lanoxin metoprolol and Eliquis Orders: - TSH; Future - TSH Nausea Encounter for therapeutic drug level monitoring - Digoxin level; Future - Digoxin level Lesion of adrenal gland ([facility]) Comments: Chronic, no real change from 2018. Check lab and anticipate endocrine and/or general surgical eval Orders: - CBC auto differential; Future - Hemoglobin A1c; Future - Comprehensive metabolic panel; Future - Cortisol, urine, 24 hour; Future - Metanephrines, Urine; Future - Catecholamines,Frac Urine; Future - VMA, urine; Future - CBC auto differential - Hemoglobin A1c - Comprehensive metabolic panel Hyperglycemia - Hemoglobin A1c; Future - Hemoglobin A1c Hypercholesteremia Comments: Stable on Lipitor Recurrent major depressive disorder, in remission ([facility]) Comments: Stay well on Zoloft Essential hypertension Comments: Improved on less meds. Continue metoprolol, lisinopril, and Lasix as directed Chronic obstructive pulmonary disease, unspecified COPD type ([facility]) Comments: Stable on albuterol nebulizer as needed Other orders - potassium chloride CR (Klor-Con M20) 20 MEQ ER tablet; One BID - digoxin (Lanoxin) 125 MCG tablet; Take 1 tablet (125 mcg) by mouth daily. - lisinopril 20 MG tablet; Take 1 tablet (20 mg) by mouth Daily with lunch. - furosemide (Lasix) 40 MG tablet; Take 1 tablet (40 mg) by mouth 2 times daily. - ondansetron (Zofran) 4 MG tablet; Take 1 tablet (4 mg) by mouth every 12 hours as needed for nausea or vomiting for up to 20 doses. - risedronate (Actonel) 35 MG tablet; Take 1 tablet (35 mg) by mouth every 7 days. Take in morning with full glass of water on an empty stomach. No food, drink, meds, or lying down for 30 minutes after. 50 Minutes spent on reviewing pertinent history, patient interview, physical exam, discussion of diagnosis and treatment and work-up options. Long discussion on the workup for the adrenal mass was taken. Will begin Actonel. Continue physical therapy. Follow-up with home physical therapy, pulmonary,cardiology, and anticipate endocrine referral Subjective: Patient ID: Alta Baker is a 73 y.o. female. HPI obese hypertensive non-smoker history of COPD, paroxysmal atrial fibrillation, chronic heart failure with cor pulmonale presents after being admitted for low back pain that appears to be due to to compression fractures of her thoracic and lumbar spine. Was transferred to residential for therapy. Has been home a couple weeks and doing pretty well. Getting some home therapy but getting around better with using her walker. Low back pain is markedly better. Has a sense of leg weakness but no sciatica. No bowel or bladder incontinence. Of note spinal surgery saw in hospital and deferred any intervention. She is not on any bisphosphonate. There has been no recent falls or injury. Daughter who is a nurse titrated her blood pressure meds due to low readings. See list and record Review of Systems a few issues need addressed. She is found to have a left adrenal lesion and general surgery is requiring biochemical workup. However reviewing her records that was evident as far back as spring 2017. No change in dyspnea or palpitations. No cough or wheezing. No purulent phlegm. She denies PND and orthopnea and her leg edema is markedly better. She has lost about 50 pounds. Nausea without abdominal pain. No emesis constipation diarrhea melenaor blood. CT of the abdomen showed a normal pancreas. History of gallstones but no right upper quadrant pain or emesis. Zoloft has been helpful for depression. Generally she feels pretty upbeat and positive. She plans to keep her weight off but that may help her back in activity. Will be seeing gynecology today for evaluation for post menopausal bleeding from 2 months ago. No recurrent symptoms. Was treated for cellulitis with Keflex and apparently had substantial intertriginous yuliana thathas resolved with Micatin powder. Allergies Allergen Reactions Oxycodone Other reaction(s): Mental Status Change Did not like the feeling Statins Other Muscle aches Tetanus Toxoids Swelling Other reaction(s): Unknown Current Outpatient Medications on File Prior to Visit Medication Sig Dispense Refill albuterol (2.5 MG/3ML) 0.083% nebulizer solution Take 3 mL (2.5 mg) by nebulization every 6 hours as needed for wheezing. 75 mL 2 albuterol 108 (90 Base) MCG/ACT inhaler INHALE TWO PUFFS BY MOUTH EVERY 4 HOURS NEEDED FOR WHEEZING OR FOR SHORTNESS OF BREATH (BULK) 6.7 g 1 apixaban (Eliquis) 5 MG tablet TAKE 1 TABLET BY MOUTH 2 TIMES DAILY 180 tablet 3 atorvastatin (Lipitor) 10 MG tablet TAKE ONE TABLET BY MOUTH DAILY AT 5PM 90 tablet 1 cetirizine (ZyrTEC) 10 MG tablet Take 10 mg by mouth Nightly. metoprolol tartrate (Lopressor) 100 MG tablet TAKE TWO TABLETS BY MOUTH TWICE DAILY @ 9AM & 6ON739 tablet 1 miconazole (Micotin) 2 % powder Apply topically 2 times daily. nystatin (Mycostatin) 927567 UNIT/GM powder Apply topically 3 times daily. 60 g 2 sertraline (Zoloft) 50 MG tablet TAKE 1 TABLET BY MOUTH EVERY DAY IN EARLY EVENING 90 tablet 1 [DISCONTINUED] digoxin (Lanoxin) 250 MCG tablet Take 1 tablet (250 mcg) by mouth daily. (Patient taking differently: Take 125 mcg by mouth daily.) [DISCONTINUED] furosemide (Lasix) 80 MG tablet Take 1 tablet (80 mg) by mouth daily. [DISCONTINUED] lisinopril 40 MG tablet Take 1 tablet (40 mg) by mouth Daily with lunch. Do not start before February 23, 2024. (Patient taking differently: Take 20 mg by mouth Daily with lunch.) [DISCONTINUED] Melatonin 10 MG tablet dispersible Take 10 mg by mouth Nightly as needed (insomnia). [DISCONTINUED] potassium chloride CR (Klor-Con M20) 20 MEQ ER tablet TAKE ONE TABLET BY MOUTH DAILYAT 9AM 90 tablet 1 [DISCONTINUED] tiZANidine (Zanaflex) 4 MG tablet Take 1 tablet (4 mg) by mouth every 6 hours as needed for muscle spasms for up to 28 days. 30 tablet 0 [DISCONTINUED] lidocaine (Lidoderm) 5 % patch Apply 1 patch topically daily. Remove & discard patch within 12 hours or as directed by MD. [DISCONTINUED] metOLazone (Zaroxolyn) 5 MG tablet Take 1 tablet (5 mg) by mouth daily (with breakfast). No current facility-administered medications on file prior to visit. Patient Active Problem List Diagnosis Hypercholesteremia 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) Asthma Venous insufficiency History of pulmonary embolism Anticoagulant long-term use Atrial fibrillation (HCC) Mitral regurgitation Obesity Allergic rhinitis Pulmonary HTN (HCC) CHRISTIANNE on CPAP COPD (chronic obstructive pulmonary disease) (HCC) Encounter for long-term (current) use of high-risk medication Cor pulmonale, chronic (HCC) Major depressive disorder in remission (CMS/HCC) (HCC) Essential hypertension Gallstone Social History Tobacco Use Smoking status: Never Smokeless tobacco: Never Substance Use Topics Alcohol use: No Past Surgical History: Procedure Laterality Date APPENDECTOMY 1970 BREAST BIOPSY Right 07/24/2021 CAPSULOTOMY, HAND 2006 MARTY/DCC 08/22 also and 03/29 as well. CAPSULOTOMY, HAND 2014 x8 CATARACT EXTRACTION Bilateral 2012 COLONOSCOPY 03/2017 divert ds - Turowski- due 2027 OVARIAN CYST REMOVAL Right 1984 TUBAL LIGATION 1980 Family History Problem Relation Name Age of Onset Lung cancer Mother age 60, smoker High Blood Pressure Father Stroke Father age 62 Coronary artery disease Sister Midge Kidney disease Sister Midge ? etiol, age 79, in 10/01 Coronary artery disease Sister Khloe 65 CABG but age 90 No Known Problems Brother Gene Asthma Brother Bill No Known Problems Maternal Grandmother No Known Problems Maternal Grandfather Breast cancer Paternal Grandmother No Known Problems Paternal Grandfather age 100 Objective: BP 104/70 (BP Location: Left arm, Patient Position: Sitting, BP Cuff Size: Large adult) Pulse 73 Temp 36.2 C (97.2 F) (Tympanic) Ht 5' (1.524 m) Wt 210 lb (95.3 kg) SpO2 98% BMI 41.01 kg/m Physical Exam pleasant alert and oriented. Blood pressure stable. Not tachycardic. Not dyspneic. Nonicteric. Moist mucous membranes. No neck masses JVD adenopathy or thyroid lesions. No carotid bruits. Heart is slightly irregular. Lungs are diminished but clear of rales wheezes or egophony. Abdomen obese nontender without pain hepatosplenomegaly or masses. No bruits. No recurrent Yuliana. No signs of cellulitis. No CVA tenderness. No Rudd's. Some mild thigh flexion weakness otherwise there is no focal deficits of the lower extremities. Minimal trace pretibial edema. No skin breakdowns. No clonus. She can walk on her heels and toes. She walks nicely with her walker. [facility]12-30-[facility]24 Telephone encounter Note* Telephone Encounter - Zoey Caballero - 03/13/2024 2:22 PM EST Message released to patient as written. Patient's further questions if applicable: FOLLOW UP QUESTIONS FOR MA/SW: 1. Did you get medications filled and takingthem as instructed from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 CHRISTIANNE on CPAP - albuterol (2.5 MG/3ML) 0.083% nebulizer solution; Take 3 mL (2.5 mg) by nebulization every 6 hours as needed for wheezing. - albuterol 108 (90 Base) MCG/ACT inhaler; INHALE TWO PUFFS BY MOUTH EVERY 4 HOURS NEEDED FOR WHEEZING OR FOR SHORTNESS OF BREATH (BULK) History of pneumonia Comments: Improving clinically, chest x-ray 1 month, continue Augmentin Pulmonary emphysema, unspecified emphysema type (HCC) Comments: Stable, continue albuterol as needed History of COVID-19 Anticoagulant long-term use Permanent atrial fibrillation (HCC) Comments: Stable, continue Lanoxin and Eliquis for now Thrombocytopenia (HCC) Comments: New onset, check stat lab Nasal bleeding Comments: Improved, stop oxygen for now. Await lab Other orders - Flu vaccine (FLUAD), trivalent, adjuvanted, preservative-free (ages 65+) - atorvastatin (Lipitor) 10 MG tablet; TAKE ONE TABLET BY MOUTH DAILY AT 5PM - digoxin (Lanoxin) 125 MCG tablet; TAKE ONE TABLET BY MOUTH DAILY AT 9AM IN THE MORNING - furosemide (Lasix) 40 MG tablet; TAKE ONE TABLET BY MOUTH TWICE DAILY @ 9AM & 5PM - lisinopril 20 MG tablet; TAKE ONE TABLET BY MOUTH DAILY AT 9AM - metoprolol tartrate (Lopressor) 100 MG tablet; TAKE TWO TABLETS BY MOUTH TWICE DAILY @ 9AM & 9PM - sertraline (Zoloft) 50 MG tablet; TAKE 1 TABLET BY MOUTH EVERY DAY IN EARLY EVENING - potassium chloride CR (Klor-Con M20) 20 MEQ ER tablet; TAKE ONE TABLET BY MOUTH DAILY AT 9AM Subjective: Patient ID: Alta Baker is a 73 y.o. female. HPI patient with history of COPD and atrial fibrillation on Eliquis recently admitted for COVID andpneumococcal pneumonia. Given Augmentin and improving. Also on Decadron or prednisone. Cardiologistrecently did a CBC due to complaints of vaginal or urethral bleeding and did show elevated white count and low platelets. Presently still on Eliquis. She did have a right sided nosebleed that resolved the last few nights. No other bruising noted. Review of Systems respiratory gonzales she is feeling a lot better. Uses 1/2 L of oxygen with her CPAP at night. O2 sats were very low prior to COVID-pneumonia. Presently they are in the mid 90s off O2 during the day. She has no pleurisy or chest pain. No recurrent purulent spit. No sense of shortness of breath. No heartburn or abdominal pain. Bowels are regular. No diarrhea on the Augmentin. Urine analysis was clear and she had no dysuria or hematuria. No postmenopausal bleeding for 22 years. Not sexually active. No pelvic pain. Allergies Allergen Reactions Oxycodone Other reaction(s): Mental Status Change Did not like the feeling Statins Muscle aches Tetanus Toxoids Swelling Other reaction(s): Unknown Current Outpatient Medications on File Prior to Visit Medication Sig Dispense Refill ammonium lactate (Lac-Hydrin) 12 % lotion Apply topically daily. 396 g 1 amoxicillin-clavulanate (Augmentin) 875-125 MG tablet Take 1 tablet by mouth 2 times daily for 10 days. 20 tablet 0 apixaban (Eliquis) 5 MG tablet TAKE 1 TABLET BY MOUTH 2 TIMES DAILY 180 tablet 3 nystatin (Mycostatin) 190403 UNIT/GM powder Indications: as directed under breasts Apply topically 4 times daily. [DISCONTINUED] albuterol (2.5 MG/3ML) 0.083% nebulizer solution Take 3 mL (2.5 mg) by nebulization every 6 hours as needed for wheezing. 75 mL 2 [DISCONTINUED] albuterol 108 (90 Base) MCG/ACT inhaler INHALE TWO PUFFS BY MOUTH EVERY 4 HOURS NEEDED FOR WHEEZING OR FOR SHORTNESS OF BREATH (BULK) 6.7 g 1 [DISCONTINUED] atorvastatin (Lipitor) 10 MG tablet TAKE ONE TABLET BY MOUTH DAILY AT 5PM 90 tablet 1 [DISCONTINUED] digoxin (Lanoxin) 125 MCG tablet TAKE ONE TABLET BY MOUTH DAILY AT 9AM IN THE MORNING 90 tablet 1 [DISCONTINUED] furosemide (Lasix) 40 MG tablet TAKE ONE TABLET BY MOUTH TWICE DAILY @ 9AM & 3SQ098 tablet 1 [DISCONTINUED] lisinopril 20 MG tablet TAKE ONE TABLET BY MOUTH DAILY AT 9AM 90 tablet 1 [DISCONTINUED] metoprolol tartrate (Lopressor) 100 MG tablet TAKE TWO TABLETS BY MOUTH TWICE DAILY @ 9AM & 9PM 360 tablet 1 [DISCONTINUED] potassium chloride CR (Klor-Con M20) 20 MEQ ER tablet TAKE ONE TABLET BY MOUTH DAILYAT 9AM 90 tablet 1 [DISCONTINUED] sertraline (Zoloft) 50 MG tablet TAKE 1 TABLET BY MOUTH EVERY DAY IN EARLY EVENING 90 tablet 1 No current facility-administered medications on file prior to visit. Patient Active Problem List Diagnosis Essential hypertension Hypercholesteremia 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) Cough variant asthma Venous insufficiency Abnormal mammogram of right breast Chronic systolic (congestive) heart failure (HCC) Major depressive disorder, recurrent, mild (HCC) History of pulmonary embolism Skin pustule Anticoagulant long-term use Atrial fibrillation (HCC) Mitral regurgitation Morbidly obese (HCC) Allergic rhinitis Pulmonary HTN (HCC) CHRISTIANNE on CPAP Depression Pulmonary emphysema, unspecified emphysema type (HCC) Encounter for long-term (current) use of high-risk medication Social History Tobacco Use Smoking status: Never Smokeless tobacco: Never Substance Use Topics Alcohol use: No Past Surgical History: Procedure Laterality Date APPENDECTOMY 1970 BREAST BIOPSY Right 07/24/2021 CAPSULOTOMY, HAND 2006 MARTY/DCC 08/22 also and 03/29 as well. CAPSULOTOMY, HAND 2014 x8 CATARACT EXTRACTION Bilateral 2012 COLONOSCOPY 03/2017 divert ds - Turowski- due 2027 OVARIAN CYST REMOVAL Right 1984 TUBAL LIGATION 1979 Family History Problem Relation Name Age of Onset Lung cancer Mother age 60, smoker High Blood Pressure Father Stroke Father age 62 Coronary artery disease Sister Midge Kidney disease Sister Midge ? etiol, age 79, in 10/01 Coronary artery disease Sister Khloe 66 CABG but age 89 No Known Problems Brother Gene Asthma Brother Bill No Known Problems Maternal Grandmother No Known Problems Maternal Grandfather Breast cancer Paternal Grandmother No Known Problems Paternal Grandfather age 100 Objective: BP 137/87 (BP Location: Left arm, Patient Position: Sitting, BP Cuff Size: Large adult) Pulse 93 Temp 36.4 C (97.5 F) (Temporal) Ht 4' 11 (1.499 m) Wt 243 lb 9.6 oz (110 kg) SpO2 97% BMI49.20 kg/m Physical Exam Pleasant alert and oriented. Well-hydrated. Not air hungry. She has a scab on her medial side of the right nostril. No masses. No JVD adenopathy or thyroid lesions. Clear oropharynx. No bruising otherwise noted. Heart is irregular. Lungs are diminished but clear of rales wheezes or egophony. Abdomen obese nontender without pain hepatosplenomegaly or masses. No ascites or bruits. Trace pedal edema appears to be chronic. Nontender calves. Color is good. No cyanosis documented [facility]10[facility]01[facility] Note* Addendum Note - Nestor Mendoza - 12/14/2023 12:08 PM EDTAddended by: NESTOR MENDOZA on: 12/14/2023 12:08 PM Modules accepted: Orders [id number] Note* Addendum Note - Nestor Mendoza - 12/14/2023 12:08 PM EDTAddended by: NESTOR MENDOZA on: 12/14/2023 12:08 PM Modules accepted: Orders [facility] [id number] NoteAddended by: NESTOR MENDOZA on: 12/14/2023 12:08 PM Modules accepted: [facility]10-01-2024 Miscellaneous Notes* Addendum Note - Nestor Mendoza - 12/14/2023 12:08 PM EDTAddended by: NESTOR MENDOZA on: 12/14/2023 12:08 PM Modules accepted: Orders * Telephone Encounter - Angelina Julian RN - 12/14/2023 8:[address] Moon: I can place order for CBC. No problem. But recommend she follows with PCP sourav for her symptoms which seemingly are related to COVID pneumonia. I called and spoke to Rhiannon relaying the above. She verbalized understanding. She will take her mom to get the labs this morning. * Telephone Encounter - Amara Langford - 12/13/2023 3:21 PM EDT Daughter called, and patient said she is feeling a little bit better today. She is not as dizzy, and her urine was clear today. She is reluctant to go to ER. 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 She asked if Dr. Moon would consider placing orders to have labs done, and for a urinalysis. I also asked that she call PCP and request sooner appointment. She does not want to go to [place] or [facility], but will go to [facility] if she decides to go. * Telephone Encounter - Angelina Julian RN - 12/13/2023 12:30 PM EDT I called and LMOM asking to see if Alta is at the ER (it looks like ER encounter, but nothing under it); it does not appear she had a HF excerbation when they saw her at [place], but wanted to see if any HF going on in addition to current symptoms. Would agree with ER recommendation due to her symptoms (SOB, lightheadedness) getting worse with bleeding and because her blood counts looking kindalow at [place] (could be dropping lower). Please call us back to let us know message received and please update us if she did go to the ER. * Telephone Encounter - Angelina Julian RN - 12/13/2023 12:15 PM EDT Images from the original note were not included. Reviewed records; appears no HF exacerbation-appears COVID Pneumonia with acute respiratory failure. No cardiology consult or echo obtained. Looks like her HGB down to 9.7; platelets noted to be as low as 63. Would agree with reaching out to PCP/ER evaluation. * Telephone Encounter - Angelina Julian RN - 12/13/2023 10:25 AM EDT Reviewed chart briefly; appears patient at [place] [facility]; agreed that patient reached out to PCP. Will review records from [place] to see if cardiology f/up is warranted. * Telephone Encounter - Amara Langford - 12/13/2023 10:03 AM EDT Received records from [facility], and e-mailed to nurse for review. Patient was sent to ER. * Telephone Encounter - Amara Langford - 12/13/2023 9:22 AM EDT Daughter called to schedule with LEROY today. She was in [facility] last week for COVID and Pneumonia. Over the weekend she complained of shortness of breath, blood in her urine and stool. She isalso dizzy when she stands up. She has an appointment with PCP, but I advised her to call them today with these issues, and ask if she can be seen sooner. I told her I will get hospital records, and review with RN to see if she should be seen in our office. Called [facility], spoke to Wilma, and records will be faxed to our office. documented in this encounterSMiddletown [id number] Telephone encounter Note* Telephone Encounter - Angelina Julian RN - 12/14/2023 8:[address] Moon: I can place order for CBC. No problem. But recommend she follows with PCP sourav for her symptoms which seemingly are related to COVID pneumonia. I called and spoke to Rhiannon relaying the above. She verbalized understanding. She will take her mom to get the labs this morning. [facility] [id number] Telephone encounter Note* Telephone Encounter - Amara Langford - 12/13/2023 3:21 PM EDT Daughter called, and patient said she is feeling a little bit better today. She is not as dizzy, and her urine was clear today. She is reluctant to go to ER. 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 She asked if Dr. Moon would consider placing orders to have labs done, and for a urinalysis. I also asked that she call PCP and request sooner appointment. She does not want to go to [place] or [facility], but will go to [facility] if she decides to go. [facility] [id number] Miscellaneous Notes* Telephone Encounter - Amara Langford - 12/13/2023 3:21 PM EDT Daughter called, and patient said she is feeling a little bit better today. She is not as dizzy, and her urine was clear today. She is reluctant to go to ER. 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 She asked if Dr. Moon would consider placing orders to have labs done, and for a urinalysis. I also asked that she call PCP and request sooner appointment. She does not want to go to [place] or [facility], but will go to [facility] if she decides to go. * Telephone Encounter - Angelina Julian RN - 12/13/2023 12:30 PM EDT I called and LMOM asking to see if Alta is at the ER (it looks like ER encounter, but nothing under it); it does not appear she had a HF excerbation when they saw her at [place], but wanted to see if any HF going on in addition to current symptoms. Would agree with ER recommendation due to her symptoms (SOB, lightheadedness) getting worse with bleeding and because her blood counts looking kindalow at [place] (could be dropping lower). Please call us back to let us know message received and please update us if she did go to the ER. * Telephone Encounter - Angelina Julian RN - 12/13/2023 12:15 PM EDT Images from the original note were not included. Reviewed records; appears no HF exacerbation-appears COVID Pneumonia with acute respiratory failure. No cardiology consult or echo obtained. Looks like her HGB down to 9.7; platelets noted to be as low as 63. Would agree with reaching out to PCP/ER evaluation. * Telephone Encounter - Angelina Julian RN - 12/13/2023 10:25 AM EDT Reviewed chart briefly; appears patient at [facility]; agreed that patient reached out to PCP. Will review records from [place] to see if cardiology f/up is warranted. * Telephone Encounter - Amara Langford - 12/13/2023 10:03 AM EDT Received records from [facility], and e-mailed to nurse for review. Patient was sent to ER. * Telephone Encounter - Amara Langford - 12/13/2023 9:22 AM EDT Daughter called to schedule with LEROY today. She was in [facility] last week for COVID and Pneumonia. Over the weekend she complained of shortness of breath, blood in her urine and stool. She isalso dizzy when she stands up. She has an appointment with PCP, but I advised her to call them today with these issues, and ask if she can be seen sooner. I told her I will get hospital records, and review with RN to see if she should be seen in our office. Called [facility], spoke to Wilma, and records will be faxed to our office. documented in this [facility]09-30-2024 Telephone encounter Note* Telephone Encounter - Angelina Julian RN - 12/13/2023 12:30 PM EDT I called and LMOM asking to see if Alta is at the ER (it looks like ER encounter, but nothing under it); it does not appear she had a HF excerbation when they saw her at [place], but wanted to see if any HF going on in addition to current symptoms. Would agree with ER recommendation due to her symptoms (SOB, lightheadedness) getting worse with bleeding and because her blood counts looking kindalow at [facility] (could be dropping lower). Please call us back to let us know message received and please update us if she did go to the ER. [facility] [id number] Telephone encounter Note* Telephone Encounter - Angelina Julian RN - 12/13/2023 12:15 PM EDT Images from the original note were not included. Reviewed records; appears no HF exacerbation-appears COVID Pneumonia with acute respiratory failure. No cardiology consult or echo obtained. Looks like her HGB down to 9.7; platelets noted to be as low as 63. Would agree with reaching out to PCP/ER evaluation. [facility] [id number] Telephone encounter Note* Telephone Encounter - Angelina Julian RN - 12/13/2023 10:25 AM EDT Reviewed chart briefly; appears patient at [facility]; agreed that patient reached out to PCP. Will review records from [place] to see if cardiology f/up is warranted. [facility] [id number] Telephone encounter Note* Telephone Encounter - Rhiannon Graf MA - 12/13/2023 10:07 AM EDT Noted [facility] [id number] Miscellaneous Notes* Telephone Encounter - Rhiannon Grfa MA - 12/13/2023 10:07 AM EDT Noted * Telephone Encounter - Chinyere Link RN - 12/13/2023 9:39 AM EDT S Patient calling with with blood in urine and vaginal bleeding B the past week A Calling with blood in urine/vaginal. Left lower back pain. Wears a pad due to bladder leaks, states has blood on pad. Only using one pad a day. Intermittent dizziness upon standing. States patient felt faint when getting up from the dinning table last night. BP normal sitting, when this event occurred BP would not register. Subsequent checksof BP sitting and standing were normal. Denies urinary frequency and urgency. R Advised ED today. Plans on going to [facility] today. Has follow up next week due to recent hospital admission with Covid Pneumonia. Advised to update office with outcome of ED after evaluation. Reason for Disposition Patient sounds very sick or weak to the triager Protocols used: Urine - Blood In-ADULT-[place] documented in this encounterSMiddletown [id number] Telephone encounter Note* Telephone Encounter - Amara Langford - 12/13/2023 10:03 AM EDT Received records from [facility], and e-mailed to nurse for review. Patient was sent to ER. [facility] [id number] Telephone encounter Note* Telephone Encounter - Chinyere Link RN - 12/13/2023 9:39 AM EDT S Patient calling with with blood in urine and vaginal bleeding B the past week A Calling with blood in urine/vaginal. Left lower back pain. Wears a pad due to bladder leaks, states has blood on pad. Only using one pad a day. Intermittent dizziness upon standing. States patient felt faint when getting up from the dinning table last night. BP normal sitting, when this event occurred BP would not register. Subsequent checksof BP sitting and standing were normal. Denies urinary frequency and urgency. R Advised ED today. Plans on going to [facility] today. Has follow up next week due to recent hospital admission with Covid Pneumonia. Advised to update office with outcome of ED after evaluation. Reason for Disposition Patient sounds very sick or weak to the triager Protocols used: Urine - Blood In-ADULT-[place] [facility] [id number] Telephone encounter Note* Telephone Encounter - Amara Langford - 12/13/2023 9:22 AM EDT Daughter called to schedule with LEROY today. She was in [facility] last week for COVID and Pneumonia. Over the weekend she complained of shortness of breath, blood in her urine and stool. She isalso dizzy when she stands up. She has an appointment with PCP, but I advised her to call them today with these issues, and ask if she can be seen sooner. I told her I will get hospital records, and review with RN to see if she should be seen in our office. Called [facility], spoke to Wilma, and records will be faxed to our office. [facility] [id number] [facility] Medical Records Department [address] [place] [id number] Discharge Summary 12/03/23 1110 MR#: [id number] Acct: [id number] Name: ALTA BAKER Rep #: [id number] : 1950 73 From: Luna Bustamante MD PCP: Dr. Davis Irene, DO Status:DIS IN Location: [facility] [id number] Providers Date of Admission: 12/01/23 Date of Discharge: 12/03/23 Primary Care Physician: Dr. Davis Irene, DO Reason For Visit: HYPOXIA, COMMUNITY ACQUIRED PNEUMONIA Diagnosis Discharge Diagnosis (1) Acute respiratory failure with hypoxia: Status: Acute Code(s): J96.01 - Acute respiratory failure with hypoxia Plan #Hypoxia due to right middle lobe pneumonia and covid 19 infection * now on 2L of oxygen. Feels much better today * CXR showed right middle lobe pneumonia * on IV ceftriaxone and azithromycin * urine for strep and legionella negative * get sputum cultures and blood cultures. * RSV and flu were negative but covid was positive. * will also start on decadron and remdesivir in light of hypoxia and covid. * #Afib: on digoxin and metoprolol. On eliquis. #THrombocytopenia * Platelets were 121 yesterday, down to 63 today. Patient has not received any heparin products. * May be due to the covid. On eliquis for afib. * will monitor platelets closely * #Elevated bilirubin. * total bilirubin is 1.8 today. Baseline from 2021 was 1.1. * etiology is unclear. May be due to covid * will monitor and trend liver enzymes * #Depression: on sertraline. #HFpEF: not in exacerbation. on lasix PO 40mg bid. Also on metoprolol #Hypertension: on metoprolol and lisinopril #Super morbid obesity: BMI is 51. Complicates acute care, expected recovery and prognosis. DVT prophylaxis: on eliquis. Code status: full code Medications at Discharge Home Medications furosemide 40 mg tablet 40 mg PO BID diuretic 10/27/13 sertraline 50 mg tablet 50 mg PO QHS mental health 10/27/13 digoxin 125 mcg (0.125 mg) tablet (Digox) 125 mcg PO DAILY heart rate 01/24/16 lisinopril 10 mg tablet 20 mg PO DAILY blood pressure 01/24/16 metoprolol tartrate 50 mg tablet 100 mg PO BID blood pressure 01/24/16 potassium chloride 20 mEq tablet,extended release(part/cryst) (Klor-Con M) 20 meq PO DAILY supplement 01/24/16 atorvastatin 10 mg tablet 10 mg PO QHS cholesterol 07/14/16 apixaban 5 mg tablet (Eliquis) 5 mg PO BID blood thinner 01/18/22 albuterol sulfate 0.63 mg/3 mL solution for nebulization 0.63 mg (3 mL) inhalation Q4H PRN shortness of breath or wheezing #75 mL 01/22/22 guaifenesin 1,200 mg tablet, extended release 12 hr (Mucus Relief ER) 1,200 mg PO BID cough #10 tabs 01/22/22 amoxicillin 875 mg-potassium clavulanate 125 mg tablet 1 tab PO BID #14 tabs 12/03/23 dexamethasone 6 mg tablet 6 mg PO DAILY #7 tabs 12/03/23 fluconazole 200 mg tablet 200 mg PO DAILY #7 tabs 12/03/23 Hospital Course Operations None Procedures None Summary of Care Provided Minutes Spent on Discharge: 55 Hospital Course: ALTA BAKER, is a 73 F with a PMH as outlined who presents via the ED with a complaint of shortness of breath which ahd been going on for a few days prior to admission. She was noted to have low oxygen levels at home. She doesnt wear oxygen at home. Family noted that her oxygen sats were in the 70s. Family increased her home lasix dose at home and initially improved, but she was subsequently noted to be hypoxic again. She also had a cough which was productive of yellowish sputum, but denied any fever or chills, palpitations, dizziness, nausea, vomiting or any other symptoms. Review of systems was otherwise negative. She said she had RSV 2 years ago and was discharged home with 2L of oxygen. She said she still had some of the oxygen at home and so she had been using it for her shortness of breath. Vitals in the ED were BP of 151/91, [place] of 89, RR of 22 and temp of 98.9F. She was saturating at 99% on 4L of oxygen. CBC showed hb of 10.7, wbc of 17.4 and platelets of 121. Chemistry showed sodium of 139, potassium of 3.9 and bicarb of 39. Cr was 0.71.BNP was 312.3. Urine tox showed 3+ bactereia and 25 leucocyte esterase. CXR showed a right lower lobe pneumonia. She was admitted to be managed for hypoxia due to right middle lobe pneumonia. She was started on IV vancomycin and zosyn in the ED. COVID test done was positive. She was also placed on remdesivir and Decadron for COVID. Her shortness of breath improved and she felt much better. She had walking pulse ox which showed that she required 2 L of oxygen. Her sputum cultures were positive for Streptococcus and yuliana. She felt much better after couple of days in the hospital. She remained stable and had walking pulse ox which showed that she still required 2 L of oxygen. She was discharged home on 2 L of oxygen on 12/03/2023. She was discharged with a prescription for p.o. (more content not included)...[facility]09-18-2024 Telephone encounter Note* Telephone Encounter - Rhiannon Graf MA - 12/01/2023 10:18 AM EDT Noted [facility] [id number] Miscellaneous Notes* Telephone Encounter - Rhiannon Graf MA - 12/01/2023 10:18 AM EDT Noted * Telephone Encounter - Zaynab Caraballo RN - 12/01/2023 9:56 AM EDT S: Dtr Rhiannon calling [facility] for URI sx B: 1 week A: Dtr reports pt w/ productive cough/cold sx/shortness of breath. States it sounded like pt was filling up w/ fluid and increased her Lasix on Wed & Tu as well as fluid restriction. States pt sounded gurgly w/ her breathing w/ mild increase to BLE swelling. States this did help a bit. Ptdoes have hx of CHF. Also states she applied 3L O2 on Wedd for shortness of breath. States pt has O2 at home for hx of RSV but has not needed it for 2yrs. Reports pt w/ fatigue and not improving. States pt is not able to go w/out O2 d/t shortness of breath. Pt has also been using nebulizer machine w/ Albuterol that she rec'd 2 yrs ago. R: RN advises SPO2 check. Reports SPO2 77% RA (O2 not on; pt in bathroom) and HR 80. Advised 3 deepbreaths then SPO2 recheck is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 TWO TABLETS BY MOUTH TWICE DAILY @ 9AM & 9PM, Disp: 360 tablet, Rfl: 1 nystatin (Mycostatin) [id number] UNIT/GM powder, Indications: as directed under breasts Apply topically4 times daily., Disp: , Rfl: potassium chloride CR (Klor-Con M20) 20 MEQ ER tablet, TAKE ONE TABLET BY MOUTH DAILY AT 9AM, Disp:90 tablet, Rfl: 1 sertraline (Zoloft) 50 MG tablet, TAKE ONE TABLET BY MOUTH DAILY early evening, Disp: 90 tablet, Rfl: 1 albuterol (2.5 MG/3ML) 0.083% nebulizer solution, Take 3 mL (2.5 mg) by nebulization every 6 hours as needed for wheezing., Disp: 75 mL, Rfl: 2 sertraline (Zoloft) 25 MG tablet, TAKE ONE TABLET BY MOUTH DAILY AT 9AM, Disp: 90 tablet, Rfl: 1 Review of Systems: Review of Systems Constitutional: Negative for activity change, chills, diaphoresis, fatigue and fever. HENT: Negative for nosebleeds and trouble swallowing. Eyes: Negative for discharge and visual disturbance. Respiratory: Positive for shortness of breath (chronic mild KNOX;resolves quickly;with the humidity). Negative for apnea, cough, chest tightness and wheezing. Cardiovascular: Negative for chest pain, palpitations and leg swelling. Gastrointestinal: Negative for abdominal distention, abdominal pain, blood in stool, diarrhea, nausea and vomiting. Endocrine: Negative for cold intolerance and heat intolerance. Genitourinary: Negative for hematuria. Musculoskeletal: Negative for gait problem and myalgias. Skin: Negative for color change and rash. Neurological: Negative for dizziness, seizures, syncope, facial asymmetry, speech difficulty, weakness, light-headedness, numbness and headaches. Hematological: Does not bruise/bleed easily. Psychiatric/Behavioral: Negative for dysphoric mood. Physical Examination: Vitals: Vitals: 08/11/23 1032 BP: 136/60 BP Location: Right arm Patient Position: Sitting BP Cuff Size: Adult Pulse: 72 Resp: 15 Weight: 248 lb (112 kg) Height: 4' 11 (1.499 m) Body mass index is 50.09 kg/m . Physical Exam Constitutional: Appearance: Normal appearance. She is obese. HENT: Head: Normocephalic. Mouth/Throat: Pharynx: No oropharyngeal exudate. Eyes: General: No scleral icterus. Right eye: No discharge. Left eye: No discharge. Cardiovascular: Rate and Rhythm: Normal rate. Rhythm irregular. Heart sounds: No murmur heard. No gallop. Pulmonary: Effort: No respiratory distress. Abdominal: General: There is no distension. Tenderness: There is no abdominal tenderness. Musculoskeletal: General: Normal range of motion. Cervical back: Normal range of motion. Skin: General: Skin is warm and dry. Neurological: Mental Status: She is alert and oriented to person, place, and time. Laboratory Tests: Lab Results Component Value Date WBC 10.5 03/25/2023 HGB 13.0 03/25/2023 HCT 39.5 03/25/2023 MCV 85.1 03/25/2023 PLT 124 (L) 03/25/2023 Lab Results Component Value Date GLUCOSE 98 03/25/2023 CALCIUM 10.0 03/25/2023 NA 141 07/01/2021 K 4.2 07/01/2021 CO2 30 03/25/2023 CL 102 07/01/2021 BUN 15 03/25/2023 CREATININE 0.80 03/25/2023 @LASTCMP@ Lab Results Component Value Date CHOL 123 07/01/2021 CHOL 127 12/30/2020 CHOL 134 05/20/2020 Lab Results Component Value Date TRIG 141 07/01/2021 TRIG 167 (A) 12/30/2020 TRIG 154 (A) 05/20/2020 Lab Results Component Value Date HDL 31 (L) 07/01/2021 HDL 31 (L) 12/30/2020 HDL 33 (L) 05/20/2020 No results found for: LDLCALC No results found for: BNP Cardiac Tests: Last Echo 10/13/21: SUMMARY: 1. Technically difficult study. 2. Left ventricle: Systolic function is normal by the biplane method of disks. The estimated ejection fraction is 59%. 3. Right ventricle: The cavity size is normal. Systolic function is mildly decreased. Right ventricular systolic pressure is moderately to severely increased. The estimated peak pressure is 63 mm Hg. 4. Mitral valve: There is no evidence for stenosis. 5. Tricuspid valve: There is moderate, 2+ regurgitation directed eccentrically. 6. Inferior vena cava: The vessel is dilated. The IVC collapses by less than 50% with inspiration, consistent with elevated central venous pressure. Assessment and Plan: 1. Permanent atrial fibrillation (HCC) Permanent, nonvalvular. Heart rate remains controlled. On Eliquis 5 mg PO BID. Tolerating it well. No side effects. No bleeding Continue metoprolol tartrate 100 mg BID -Continue digoxin (dig 1.0 on 03/25/23) CBC stable 03/25/23 [id number] Score for Atrial Fibrillation Stroke Risk Risk Factors Component Value C CHF Yes 1 H HTN Yes 1 A2 Age >= 75 No, (71 y.o.) 0 D DM No 0 S2 Prior Stroke/TIA No 0 V Vascular Disease No 0 A Age 65-74 Yes, (71 y.o.) 1 Sc Sex female 1 [id number] Score 4 2. Anticoagulant long-term use On eliquis 5 mg PO BID, no bleeding/no falls 3. Mod TR/pulm HTN Multifactorial - Obesity,CHRISTIANNE Recommend CPAP compliance for CHRISTIANNE. 4. 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 Initial ejection fraction 20-25% and improved to 45% in 2017. TTE 2021 with EF 59%. No current heart failure symptoms and euvolemic on physical exam. Continue beta reina, lisinopril and lasix. RTC In 6 months [facility]03[facility] History of Present illness Narrative* Delaney Arceo RN - 05/28/2023 10:47 AM EDT ACM KRISTI RN Reason for review or outreach: Medication Adherence review per request of payer Medication Adherence Review Details: Cholesterol FYI / ACTION REQUEST: Patient identified by name and date of Summary/Findings of review: Patient is seeing a Non-[facility] PCP at [facility] Patient Attributed To: QAE Payer: [facility] Action Taken: Data submitted to Payer Other Contact made with patient: No, Chart review only. Signature: Delaney Arceo RN [facility] Tele[facility] encounter Note * Telephone Encounter - Kerri Morse MA - 05/26/2023 11:41 AM EDT Rx reloaded Patient says she has been out of medication now for 4 days and does not want to deal with mail order anymore and would like this script sent to [id number] Miscellaneous Notes* Telephone Encounter - Kerri Morse MA - 05/26/2023 11:41 AM EDT Rx reloaded Patient says she has been out of medication now for 4 days and does not want to deal with mail order anymore and would like this script sent to [facility] documented in this encounterSMiddletown [id number] Telephone encounter Note* Telephone Encounter - Khurram Thomas - 05/11/2023 2:44 PM EST Medication name: atorvastatin Medication dosage: 10 mg (Miligrams Monthly quantity needed: 90 How many day supply requestin days Medication route: oral (PO) Medication administration time(s): daily If taking medication PRN, reason for taking medication: N/A If this is a controlled substance do you receive this or any other controlled medication from any other doctor or facility: N/A Ordering provider: Date of last office visit: 03/25/23 Date of next office visit: 06/02/23 Date of last refill: (see medication tab): 03/25/23 Updated/Validated preferred pharmacy: Yes Patient instructed to contact the pharmacy prior to picking up the medication: Yes [id number] Miscellaneous Notes* Telephone Encounter - Khurram Thomas - 05/11/2023 2:44 PM EST Medication name: atorvastatin Medication dosage: 10 mg (Miligrams Monthly quantity needed: 90 How many day supply requestin days Medication route: oral (PO) Medication administration time(s): daily If taking medication PRN, reason for taking medication: N/A If this is a controlled substance do you receive this or any other controlled medication from any other doctor or facility: N/A Ordering provider: Date of last office visit: 03/25/23 Date of next office visit: 06/02/23 Date of last refill: (see medication tab): 03/25/23 Updated/Validated preferred pharmacy: Yes Patient instructed to contact the pharmacy prior to picking up the medication: Yes [facility]02[facility] Telephone encounter Note* Telephone Encounter - Pari Hernandez - 05/07/2023 11:33 AM EST Medication name: clotrimazole-betamethasone (LOTRISONE) 1-0.05 % cream Medication dosage: 1-0.05% cream Monthly quantity needed: n/a How many day supply requesting: n/a Medication route: topical (on skin) Medication administration time(s): Apply topically 2 times daily to perirectal area prn If taking medication PRN, reason for taking medication: Apply topically 2 times daily to perirectalarea prn If this is a controlled substance do you receive this or any other controlled medication from any other doctor or facility: n/a Ordering provider: Dr. Ibarra Date of last office visit: 04/20/23 Date of next office visit: 09/24/23 Date of last refill: (see medication tab): 03/25/23 Updated/Validated preferred pharmacy: Yes [facility] Mail Delivery - [facility] [address] [facility] Patient instructed to contact the pharmacy prior to picking up the medication: Yes [id number] Miscellaneous Notes* Telephone Encounter - Pari Hernandez - 05/07/2023 11:33 AM EST Medication name: clotrimazole-betamethasone (LOTRISONE) 1-0.05 % cream Medication dosage: 1-0.05% cream Monthly quantity needed: n/a How many day supply requesting: n/a Medication route: topical (on skin) Medication administration time(s): Apply topically 2 times daily to perirectal area prn If taking medication PRN, reason for taking medication: Apply topically 2 times daily to perirectalarea prn If this is a controlled substance do you receive this or any other controlled medication from any other doctor or facility: n/a Ordering provider: Dr. Ibarra Date of last office visit: 04/20/23 Date of next office visit: 09/24/23 Date of last refill: (see medication tab): 03/25/23 Updated/Validated preferred pharmacy: Yes [facility] Mail Delivery - [address] Patient instructed to contact the pharmacy prior to picking up the medication: Yes documented in this encounterSMiddletown [id number] Telephone encounter Note* Telephone Encounter - Katia Roldan - 04/13/2023 4:37 PM EST Name of caller: Alta Contact phone number: [phone] Relationship to Patient: patient Provider: Dr. Khalil Practice: Plastic Surgery Chief Complaint/Reason for Call: Patient called in requesting to reschedule their appointment for 04/20/[address] Khalil to a different day. Patient states that they have been trying to contact the office all day with no answer and would like a call back SOURAV to reschedule. Please advise. Best time of day caller can be reached: Any Patient advised that office/PCP has 24-48 business hours to return their call: Yes [id number] Miscellaneous Notes* Telephone Encounter - Katia Roldan - 04/13/2023 4:37 PM EST Name of caller: Alta Contact phone number: [phone] Relationship to Patient: patient Provider: Dr. Khalil Practice: Plastic Surgery Chief Complaint/Reason for Call: Patient called in requesting to reschedule their appointment for 04/20/[address] Khalil to a different day. Patient states that they have been trying to contact the office all day with no answer and would like a call back SOURAV to reschedule. Please advise. Best time of day caller can be reached: Any Patient advised that office/PCP has 24-48 business hours to return their call: Yes [facility]01[facility] Telephone encounter Note* Telephone Encounter - Kerri Morse MA - 04/12/2023 8:57 AM EST Rx loaded [id number] Miscellaneous Notes* Telephone Encounter - Kerri Morse MA - 04/12/2023 8:57 AM EST Rx loaded * Telephone Encounter - Bruno Davis - 04/09/2023 4:40 PM EST Medication name: albuterol 108 (90 Base) MCG/ACT inhaler Medication dosage: 108 (90 Base) MCG/ACT Monthly quantity needed: 1 inhaler How many day supply requestin days Medication route: inhalation (inhaler) Medication administration time(s): as needed (PRN) If taking medication PRN, reason for taking medication: INHALE TWO PUFFS BY MOUTH EVERY 4 HOURS NEEDED FOR WHEEZING OR FOR SHORTNESS OF BREATH If this is a controlled substance do you receive this or any other controlled medication from any other doctor or facility: N/A Ordering provider: Dr. Ibarra Date of last office visit: 03/25/23 Date of next office visit: 09/24/23 Date of last refill: (see medication tab): 03/09/23 Updated/Validated preferred pharmacy: Yes Patient instructed to contact the pharmacy prior to picking up the medication: No [facility]01[facility] Telephone encounter Note* Telephone Encounter - Bruno Davis - 04/09/2023 4:40 PM EST Medication name: albuterol 108 (90 Base) MCG/ACT inhaler Medication dosage: 108 (90 Base) MCG/ACT Monthly quantity needed: 1 inhaler How many day supply requestin days Medication route: inhalation (inhaler) Medication administration time(s): as needed (PRN) If taking medication PRN, reason for taking medication: INHALE TWO PUFFS BY MOUTH EVERY 4 HOURS NEEDED FOR WHEEZING OR FOR SHORTNESS OF BREATH If this is a controlled substance do you receive this or any other controlled medication from any other doctor or facility: N/A Ordering provider: Dr. Ibarra Date of last office visit: 03/25/23 Date of next office visit: 09/24/23 Date of last refill: (see medication tab): 03/09/23 Updated/Validated preferred pharmacy: Yes Patient instructed to contact the pharmacy prior to picking up the medication: No [id number] Telephone encounter Note* Telephone Encounter - Una Rabago - 03/25/2023 2:55 PM EST Orders pended for doctor signature [id number] Miscellaneous Notes* Telephone Encounter - Una Rabago - 03/25/2023 2:55 PM EST Orders pended for doctor signature [facility]01[facility] History of Present illness Narrative* Kory Ibarra DO - 03/25/2023 10:30 AM EST Images from the original note were not included. [facility] [address] [place] [address] [facility] [address] Visit type: Established Patient Reason for Visit: Follow-up (6 month med check) Assessment / Plan: Alta was seen today for follow-up. Diagnoses and all orders for this visit: Essential hypertension (Primary) Comments: Stable, continue metoprolol, lisinopril and Lasix Orders: - CBC auto differential; Future - Comprehensive metabolic panel; Future - CBC auto differential - Comprehensive metabolic panel Hypercholesteremia Comments: Stable, continue Lipitor Orders: - Lipid panel; Future - TSH; Future - Lipid panel - TSH Anticoagulant long-term use - Digoxin level; Future - Digoxin level Major depressive disorder, recurrent, mild (HCC) Comments: Uncontrolled with some insomnia. Increase Zoloft to 50 mg daily Permanent atrial fibrillation (HCC) Comments: Stable, continue Eliquis Eyelid lesion, benign Comments: Enlarging, prefers plastic referral Cough variant asthma Comments: Stable, continue albuterol as needed Breast cancer screening by mammogram - Bilateral screening mammogram with tomosynthesis; Future Other orders - sertraline (Zoloft) 50 MG tablet; TAKE ONE TABLET BY MOUTH DAILY early evening - potassium chloride CR (Klor-Con M20) 20 MEQ ER tablet; TAKE ONE TABLET BY MOUTH DAILY AT 9AM - metoprolol tartrate (Lopressor) 100 MG tablet; TAKE TWO TABLETS BY MOUTH TWICE DAILY @ 9AM & 9PM - lisinopril 20 MG tablet; TAKE ONE TABLET BY MOUTH DAILY AT 9AM - furosemide (Lasix) 40 MG tablet; TAKE ONE TABLET BY MOUTH TWICE DAILY @ 9AM & 5PM - digoxin (Lanoxin) 125 MCG tablet; TAKE ONE TABLET BY MOUTH DAILY AT 9AM IN THE MORNING - atorvastatin (Lipitor) 10 MG tablet; TAKE ONE TABLET BY MOUTH DAILY AT 5PM Subjective: Patient ID: Alta Baker is a 72 y.o. female. HPI hypertensive patient with history of atrial fibs, and pulmonary emboli on Eliquis presents for checkup. Needs some screening lab per cardiology. Overall she is felt well. History of cough variantasthma, using albuterol on a rare basis. Overall vaccinations up-to-date except for RSV immunization. Denies recent dyspnea chest pain cough phlegm or fever. Overall feeling well. She enjoys living with her daughter and 3 grandsons. Difficulty sleeping however. Review of Systems no sense of headache chest pain or palpitations. No PND orthopnea or change in chronic leg edema. Using CPAP regularly. No purulent phlegm or fever. No heartburn or dysphagia. No abdominal pain. No melena or blood. Bowels are regular. Does need mammogram referral. Breast exam in summer 2022 was normal. Concerned about multiple eyelid skin tags and would like them removed. Allergies Allergen Reactions Oxycodone Other reaction(s): Mental Status Change Did not like the feeling Statins Muscle aches Tetanus Toxoids Swelling Other reaction(s): Unknown Current Outpatient Medications on File Prior to Visit Medication Sig Dispense Refill albuterol (2.5 MG/3ML) 0.083% nebulizer solution Take 3 mL (2.5 mg) by nebulization every 6 hours as needed for wheezing. 75 mL 2 albuterol 108 (90 Base) MCG/ACT inhaler INHALE TWO PUFFS BY MOUTH EVERY 4 HOURS NEEDED FOR WHEEZING OR FOR SHORTNESS OF BREATH (BULK) 6.7 g 0 ammonium lactate (Lac-Hydrin) 12 % lotion Apply topically daily. 396 g 1 apixaban (Eliquis) 5 MG tablet TAKE 1 TABLET BY MOUTH 2 TIMES DAILY 180 tablet 3 nystatin (Mycostatin) 658111 UNIT/GM powder Indications: as directed under breasts Apply topically 4 times daily. [DISCONTINUED] atorvastatin (Lipitor) 10 MG tablet TAKE ONE TABLET BY MOUTH DAILY AT 5PM 90 tablet 0 [DISCONTINUED] digoxin (Lanoxin) 125 MCG tablet TAKE ONE TABLET BY MOUTH DAILY AT 9AM IN THE MORNING 90 tablet 0 [DISCONTINUED] furosemide (Lasix) 40 MG tablet TAKE ONE TABLET BY MOUTH TWICE DAILY @ 9AM & [id number] tablet 0 [DISCONTINUED] lisinopril 20 MG tablet TAKE ONE TABLET BY MOUTH DAILY AT 9AM 90 tablet 0 [DISCONTINUED] metoprolol tartrate (Lopressor) 100 MG tablet TAKE TWO TABLETS BY MOUTH TWICE DAILY @ 9AM & 9PM 360 tablet 0 [DISCONTINUED] potassium chloride CR (Klor-Con M20) 20 MEQ ER tablet TAKE ONE TABLET BY MOUTH DAILYAT 9AM 90 tablet 0 [DISCONTINUED] sertraline (Zoloft) 25 MG tablet TAKE ONE TABLET BY MOUTH DAILY AT 9AM 90 tablet 0 apixaban (Eliquis) 5 MG tablet TAKE 1 TABLET BY MOUTH 2 TIMES DAILY 180 tablet 1 No current facility-administered medications on file prior to visit. Patient Active Problem List Diagnosis Essential hypertension Hypercholesteremia 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) Cough variant asthma Venous insufficiency Abnormal mammogram of right breast Chronic systolic (congestive) heart failure (HCC) Major depressive disorder, recurrent, mild (HCC) History of pulmonary embolism Skin pustule Anticoagulant long-term use Atrial fibrillation (HCC) Mitral regurgitation Morbidly obese (HCC) Allergic rhinitis Pulmonary HTN (HCC) CHRISTIANNE on CPAP Depression Pulmonary emphysema, unspecified emphysema type (HCC) Encounter for long-term (current) use of high-risk medication Social History Tobacco Use Smoking status: Never Smokeless tobacco: Never Substance Use Topics Alcohol use: No Past Surgical History: Procedure Laterality Date APPENDECTOMY 1970 CAPSULOTOMY, HAND 2006 MARTY/DCC 08/22 also and 03/29 as well. CAPSULOTOMY, HAND 2014 x8 CATARACT EXTRACTION Bilateral 2012 COLONOSCOPY 03/2017 divert ds - Turowski- due 2027 OVARIAN CYST REMOVAL Right 1985 TUBAL LIGATION 1980 Family History Problem Relation Name Age of Onset Lung cancer Mother age 60, smoker High Blood Pressure Father Stroke Father age 62 Coronary artery disease Sister Midge Kidney disease Sister Midge ? etiol, age 79, in 10/01 Coronary artery disease Sister Khloe 65 CABG but age 90 No Known Problems Brother Gene Asthma Brother Bill No Known Problems Maternal Grandmother No Known Problems Maternal Grandfather Breast cancer Paternal Grandmother No Known Problems Paternal Grandfather age 100 Objective: BP 137/60 Pulse 76 Temp 36.2 C (97.1 F) (Temporal) Ht 4' 11 (1.499 m) Wt 247 lb (112 kg) SpO2 96% BMI 49.89 kg/m Physical Exam pleasant cooperative. Has good insight eye contact and is well- groomed. No JVD adenopathy or carotid bruits. No thyroid or neck masses. Multiple skin tags of her eyelids look benign. Heart is regular. No new murmurs or ectopy. Lungs are diminished but clear of rales wheezes or egophony. Abdomen hugely obese without pain hepatosplenomegaly masses bruits or ascites. 1+ leg edema is chronic. No skin breakdowns. Posterior tibial pulses are adequate [facility]01[facility] Instructions* Patient Instructions* Kory Ibarra DO - 03/25/2023 10:30 AM EST Please acquire mammogram as discussed documented in this [facility]01-02-2024 Telephone encounter Note* Telephone Encounter - Blossom Rayo - 03/16/2023 5:23 PM EST Medication name: apixaban (Eliquis) 5 MG tablet Medication dosage: 5 mg (Miligrams Monthly quantity needed: 180 How many day supply requestin refill Medication route: oral (PO) Medication administration time(s): 2 times a day (BID) If taking medication PRN, reason for taking medication: N/A If this is a controlled substance do you receive this or any other controlled medication from any other doctor or facility: No Ordering provider: Dr. Moon Date of last office visit: 02/02/2023 Negra Huitron Date of next office visit: None Scheduled Date of last refill: (see medication tab): 11/24/2022 Updated/Validated preferred pharmacy: Yes [facility] Patient instructed to contact the pharmacy prior to picking up the medication: No [id number] Miscellaneous Notes* Telephone Encounter - Blossom Rayo - 03/16/2023 5:23 PM EST Medication name: apixaban (Eliquis) 5 MG tablet Medication dosage: 5 mg (Miligrams Monthly quantity needed: 180 How many day supply requestin refill Medication route: oral (PO) Medication administration time(s): 2 times a day (BID) If taking medication PRN, reason for taking medication: N/A If this is a controlled substance do you receive this or any other controlled medication from any other doctor or facility: No Ordering provider: Dr. Moon Date of last office visit: 02/02/2023 Negra Huitron Date of next office visit: None Scheduled Date of last refill: (see medication tab): 11/24/2022 Updated/Validated preferred pharmacy: Yes [facility] Patient instructed to contact the pharmacy prior to picking up the medication: No documented [facility]12-26-[facility] Telephone encounter Note* Telephone Encounter - Selma Stone MA - 03/09/2023 11:05 AM EST Recent Visits Date Type Provider Dept 09/22/22 Office Visit DO Jason Wilson [facility] 03/24/22 Office Visit Kory Ibarra DO [facility] Showing recent visits within past 365 days and meeting all other requirements Future Appointments Date Type Provider Dept 03/25/23 Appointment Kory Ibarra DO [facility] Showing future appointments within next 90 days and meeting all other requirements Requested Prescriptions Pending Prescriptions Disp Refills sertraline (Zoloft) 25 MG tablet [Pharmacy Med Name: sertraline 25 mg tablet] 90 tablet 1 Sig: TAKE ONE TABLET BY MOUTH DAILY AT 9AM furosemide (Lasix) 40 MG tablet [Pharmacy Med Name: furosemide 40 mg tablet] 180 tablet 1 Sig: TAKE ONE TABLET BY MOUTH TWICE DAILY @ 9AM & 5PM metoprolol tartrate (Lopressor) 100 MG tablet [Pharmacy Med Name: metoprolol tartrate 100 mg tablet] 360 tablet 1 Sig: TAKE TWO TABLETS BY MOUTH TWICE DAILY @ 9AM & 9PM atorvastatin (Lipitor) 10 MG tablet [Pharmacy Med Name: atorvastatin 10 mg tablet] 90 tablet 1 Sig: TAKE ONE TABLET BY MOUTH DAILY AT 5PM digoxin (Lanoxin) 125 MCG tablet [Pharmacy Med Name: digoxin 125 mcg (0.125 mg) tablet] 90 tablet 1 Sig: TAKE ONE TABLET BY MOUTH DAILY AT 9AM IN THE MORNING lisinopril 20 MG tablet [Pharmacy Med Name: lisinopril 20 mg tablet] 90 tablet 1 Sig: TAKE ONE TABLET BY MOUTH DAILY AT 9AM potassium chloride CR (Klor-Con M20) 20 MEQ ER tablet [Pharmacy Med Name: potassium chloride ER 20 mEq tablet,extended release(part/cryst)] 90 tablet 1 Sig: TAKE ONE TABLET BY MOUTH DAILY AT 9AM albuterol 108 (90 Base) MCG/ACT inhaler [Pharmacy Med Name: albuterol sulfate HFA 90 mcg/actuation aerosol inhaler] 6.7 g 1 Sig: INHALE TWO PUFFS BY MOUTH EVERY 4 HOURS NEEDED FOR WHEEZING OR FOR SHORTNESS OF BREATH (BULK) Provider: Kory Ibarra DO Overdue for visit: No If yes - patient scheduled? Yes Most recent labs completed in chart? Yes Verified pharmacy: yes Verified day(s) supplied: yes Verified refill(s) needed (previous prescription showing no refills in chart): Yes Have you received any controlled medications from any other provider? N/A [facility]12-26-2023 Miscellaneous Notes* Telephone Encounter - Selma Stone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 medications Pulmonary HTN (HCC) CHRISTIANNE on CPAP 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) Permanent atrial fibrillation (HCC)- Primary Atrial fibrillation Anticoagulant long-term use Encounter for long-term (current) use of anticoagulants Encounter for long-term (current) use of high-risk medication Encounter for long-term (current) use of other medications Pulmonary HTN (HCC) Chronic systolic (congestive) heart failure (HCC) Essential hypertension Unspecified essential hypertension documented in this encounter [facility] note* Diagnosis Pain- Primary Generalized pain documented in this encounter [facility] note* Diagnosis Permanent atrial fibrillation (HCC)- Primary Atrial fibrillation Anticoagulant long-term use Encounter for long-term (current) use of anticoagulants Encounter for long-term (current) use of high-risk medication Encounter for long-term (current) use of other medications Pulmonary HTN (HCC) CHRISTIANNE on CPAP 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) Permanent atrial fibrillation (HCC)- Primary Atrial fibrillation Anticoagulant long-term use Encounter for long-term (current) use of anticoagulants Encounter for long-term (current) use of high-risk medication Encounter for long-term (current) use of other medications Pulmonary HTN (HCC) Chronic systolic (congestive) heart failure (HCC) Essential hypertension Unspecified essential hypertension Acute right-sided low back pain without sciatica- Primary [facility]* Diagnosis Permanent atrial fibrillation (HCC)- Primary Atrial fibrillation Anticoagulant long-term use Encounter for long-term (current) use of anticoagulants Encounter for long-term (current) use of high-risk medication Encounter for long-term (current) use of other medications Pulmonary HTN (HCC) CHRISTIANNE on CPAP 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) Permanent atrial fibrillation (HCC)- Primary Atrial fibrillation Anticoagulant long-term use Encounter for long-term (current) use of anticoagulants Encounter for long-term (current) use of high-risk medication Encounter for long-term (current) use of other medications Pulmonary HTN (HCC) Chronic systolic (congestive) heart failure (HCC) Essential hypertension Unspecified essential hypertension Acute right-sided low back pain without sciatica- Primary Calculus of gallbladder without cholecystitis without obstruction Left adrenal mass (HCC) Unspecified disorder of adrenal glands Chronic congestive heart failure, unspecified heart failure type (HCC) documented in this encounter [facility] [facility] Diagnosis Permanent atrial fibrillation (HCC)- Primary Atrial fibrillation Anticoagulant long-term use Encounter for long-term (current) use of anticoagulants Encounter for long-term (current) use of high-risk medication Encounter for long-term (current) use of other medications Pulmonary HTN (HCC) CHRISTIANNE on CPAP 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) Permanent atrial fibrillation (HCC)- Primary Atrial fibrillation Anticoagulant long-term use Encounter for long-term (current) use of anticoagulants Encounter for long-term (current) use of high-risk medication Encounter for long-term (current) use of other medications Pulmonary HTN (HCC) Chronic systolic (congestive) heart failure (HCC) Essential hypertension Unspecified essential hypertension Acute midline low back pain without sciatica- Primary Tinea cruris Dermatophytosis of groin and perianal area Shortness of breath Bandemia [facility] Diagnosis Permanent atrial fibrillation (HCC)- Primary Atrial fibrillation Anticoagulant long-term use Encounter for long-term (current) use of anticoagulants Encounter for long-term (current) use of high-risk medication Encounter for long-term (current) use of other medications Pulmonary HTN (HCC) CHRISTIANNE on CPAP 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) Permanent atrial fibrillation (HCC)- Primary Atrial fibrillation Anticoagulant long-term use Encounter for long-term (current) use of anticoagulants Encounter for long-term (current) use of high-risk medication Encounter for long-term (current) use of other medications Pulmonary HTN (HCC) Chronic systolic (congestive) heart failure (HCC) Essential hypertension Unspecified essential hypertension Acute midline low back pain without sciatica Bandemia [facility] Diagnosis Permanent atrial fibrillation (HCC)- Primary Atrial fibrillation Anticoagulant long-term use Encounter for long-term (current) use of anticoagulants Encounter for long-term (current) use of high-risk medication Encounter for long-term (current) use of other medications Pulmonary HTN (HCC) CHRISTIANNE on CPAP 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) Permanent atrial fibrillation (HCC)- Primary Atrial fibrillation Anticoagulant long-term use Encounter for long-term (current) use of anticoagulants Encounter for long-term (current) use of high-risk medication Encounter for long-term (current) use of other medications Pulmonary HTN (HCC) Chronic systolic (congestive) heart failure (HCC) Essential hypertension Unspecified essential hypertension Shortness of breath [facility]* Diagnosis Permanent atrial fibrillation (HCC)- Primary Atrial fibrillation Anticoagulant long-term use Encounter for long-term (current) use of anticoagulants Encounter for long-term (current) use of high-risk medication Encounter for long-term (current) use of other medications Pulmonary HTN (HCC) CHRISTIANNE on CPAP 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) Permanent atrial fibrillation (HCC)- Primary Atrial fibrillation Anticoagulant long-term use Encounter for long-term (current) use of anticoagulants Encounter for long-term (current) use of high-risk medication Encounter for long-term (current) use of other medications Pulmonary HTN (HCC) Chronic systolic (congestive) heart failure (HCC) Essential hypertension Unspecified essential hypertension Abdominal pain, unspecified abdominal location- Primary Abdominal pain, unspecified abdominal location Acute midline low back pain without sciatica Atypical back pain Pulmonary HTN (HCC) Acute respiratory failure, unspecified whether with hypoxia or hypercapnia (HCC) Morbidly obese (HCC) Morbid obesity Atypical back pain Acute respiratory failure, unspecified whether with hypoxia or hypercapnia (HCC) Hypercholesteremia Pure hypercholesterolemia History of pulmonary embolism Personal history of venous thrombosis and embolism CHRISTIANNE on CPAP Atrial fibrillation (HCC) Atrial fibrillation Anticoagulant long-term use Encounter for long-term (current) use of anticoagulants Pulmonary HTN (HCC) Hypertensive heart disease without congestive heart failure Unspecified hypertensive heart disease without heart failure Cor pulmonale, chronic (HCC) Unspecified chronic pulmonary heart disease documented [facility]* Diagnosis Chronic pain of left knee- Primary CHRISTIANNE on CPAP Cough variant asthma Hyperglycemia Other abnormal glucose Essential hypertension Unspecified essential hypertension Longstanding persistent atrial fibrillation (CMS/HCC) (HCC) Hypercholesteremia Pure hypercholesterolemia documented [facility]* Diagnosis Permanent atrial fibrillation (HCC)- Primary Atrial fibrillation Anticoagulant long-term use Encounter for long-term (current) use of anticoagulants Encounter for long-term (current) use of high-risk medication Encounter for long-term (current) use of other medications Pulmonary HTN (HCC) CHRISTIANNE on CPAP 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) Permanent atrial fibrillation (HCC)- Primary Atrial fibrillation Anticoagulant long-term use Encounter for long-term (current) use of anticoagulants Encounter for long-term (current) use of high-risk medication Encounter for long-term (current) use of other medications Pulmonary HTN (HCC) Chronic systolic (congestive) heart failure (HCC) Essential hypertension Unspecified essential hypertension Osteoporotic compression fracture of vertebra with routine healing, subsequent encounter- Primary Venous insufficiency Unspecified venous (peripheral) insufficiency Anticoagulant long-term use Encounter for long-term (current) use of anticoagulants Permanent atrial fibrillation (HCC) Atrial fibrillation Nausea Nausea alone Encounter for therapeutic drug level monitoring Lesion of adrenal gland (HCC) Hyperglycemia Other abnormal glucose Hypercholesteremia Pure hypercholesterolemia Recurrent major depressive disorder, in remission (HCC) Essential hypertension Unspecified essential hypertension Chronic obstructive pulmonary disease, unspecified COPD type (HCC) documented [facility]* Diagnosis Permanent atrial fibrillation (HCC)- Primary Atrial fibrillation Anticoagulant long-term use Encounter for long-term (current) use of anticoagulants Encounter for long-term (current) use of high-risk medication Encounter for long-term (current) use of other medications Pulmonary HTN (HCC) CHRISTIANNE on CPAP 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) Permanent atrial fibrillation (HCC)- Primary Atrial fibrillation Anticoagulant long-term use Encounter for long-term (current) use of anticoagulants Encounter for long-term (current) use of high-risk medication Encounter for long-term (current) use of other medications Pulmonary HTN (HCC) Chronic systolic (congestive) heart failure (HCC) Essential hypertension Unspecified essential hypertension Permanent atrial fibrillation (HCC)- Primary Atrial fibrillation [facility] Diagnosis Permanent atrial fibrillation (HCC)- Primary Atrial fibrillation Anticoagulant long-term use Encounter for long-term (current) use of anticoagulants Encounter for long-term (current) use of high-risk medication Encounter for long-term (current) use of other medications Pulmonary HTN (HCC) CHRISTIANNE on CPAP 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) Permanent atrial fibrillation (HCC)- Primary Atrial fibrillation Anticoagulant long-term use Encounter for long-term (current) use of anticoagulants Encounter for long-term (current) use of high-risk medication Encounter for long-term (current) use of other medications Pulmonary HTN (HCC) Chronic systolic (congestive) heart failure (HCC) Essential hypertension Unspecified essential hypertension Venous insufficiency- Primary Unspecified venous (peripheral) insufficiency [facility] Permanent atrial fibrillation (HCC)- Primary Atrial fibrillation Anticoagulant long-term use Encounter for long-term (current) use of anticoagulants Encounter for long-term (current) use of high-risk medication Encounter for long-term (current) use of other medications Pulmonary HTN (HCC) CHRISTIANNE on CPAP 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) Permanent atrial fibrillation (HCC)- Primary Atrial fibrillation Anticoagulant long-term use Encounter for long-term (current) use of anticoagulants Encounter for long-term (current) use of high-risk medication Encounter for long-term (current) use of other medications Pulmonary HTN (HCC) Chronic systolic (congestive) heart failure (HCC) Essential hypertension Unspecified essential hypertension Permanent atrial fibrillation (HCC) [facility] (HCC)- Primary Atrial fibrillation Anticoagulant long-term use Encounter for long-term (current) use of anticoagulants Encounter for long-term (current) use of high-risk medication Encounter for long-term (current) use of other medications Pulmonary HTN (HCC) CHRISTIANNE on CPAP 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) Permanent atrial fibrillation (HCC)- Primary Atrial fibrillation Anticoagulant long-term use Encounter for long-term (current) use of anticoagulants Encounter for long-term (current) use of high-risk medication Encounter for long-term (current) use of other medications Pulmonary HTN (HCC) Chronic systolic (congestive) heart failure (HCC) Essential hypertension Unspecified essential hypertension Generalized weakness- Primary Generalized weakness Dehydration Bradycardia Other specified cardiac dysrhythmias NICK (acute kidney injury) (HCC) Compression fracture of lumbar vertebra, unspecified lumbar vertebral level, initial encounter (HCC) Pulmonary HTN (HCC) Chronic obstructive pulmonary disease, unspecified COPD type (HCC) Severe malnutrition (CMS/HCC) (HCC) Nutritional marasmus [facility] Diagnosis Permanent atrial fibrillation (HCC)- Primary Atrial fibrillation Anticoagulant long-term use Encounter for long-term (current) use of anticoagulants Encounter for long-term (current) use of high-risk medication Encounter for long-term (current) use of other medications Pulmonary HTN (HCC) CHRISTIANNE on CPAP 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) Permanent atrial fibrillation (HCC)- Primary Atrial fibrillation Anticoagulant long-term use Encounter for long-term (current) use of anticoagulants Encounter for long-term (current) use of high-risk medication Encounter for long-term (current) use of other medications Pulmonary HTN (HCC) Chronic systolic (congestive) heart failure (HCC) Essential hypertension Unspecified essential hypertension Permanent atrial fibrillation (HCC)- Primary Atrial fibrillation Anticoagulant long-term use Encounter for long-term (current) use of anticoagulants Pulmonary HTN (HCC) Nonrheumatic tricuspid valve regurgitation 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) Nonrheumatic aortic valve insufficiency Nonrheumatic mitral valve regurgitation CHRISTIANNE on CPAP Hospital discharge follow-up Other follow-up examination [facility] Diagnosis Permanent atrial fibrillation (HCC)- Primary Atrial fibrillation Anticoagulant long-term use Encounter for long-term (current) use of anticoagulants Encounter for long-term (current) use of high-risk medication Encounter for long-term (current) use of other medications Pulmonary HTN (HCC) CHRISTIANNE on CPAP 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) Permanent atrial fibrillation (HCC)- Primary Atrial fibrillation Anticoagulant long-term use Encounter for long-term (current) use of anticoagulants Encounter for long-term (current) use of high-risk medication Encounter for long-term (current) use of other medications Pulmonary HTN (HCC) Chronic systolic (congestive) heart failure (HCC) Essential hypertension Unspecified essential hypertension Permanent atrial fibrillation (HCC)- Primary Atrial fibrillation Anticoagulant long-term use Encounter for long-term (current) use of anticoagulants Pulmonary HTN (HCC) Nonrheumatic tricuspid valve regurgitation 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) Nonrheumatic aortic valve insufficiency Nonrheumatic mitral valve regurgitation CHRISTIANNE on CPAP Hospital discharge follow-up Other follow-up examination 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)- Primary Normochromic normocytic anemia Morbidly obese (HCC) Morbid obesity Chronic obstructive pulmonary disease, unspecified COPD type (HCC) Longstanding persistent atrial fibrillation (HCC) Depression, unspecified depression type [facility] Diagnosis Permanent atrial fibrillation (HCC)- Primary Atrial fibrillation Anticoagulant long-term use Encounter for long-term (current) use of anticoagulants Encounter for long-term (current) use of high-risk medication Encounter for long-term (current) use of other medications Pulmonary HTN (HCC) CHRISTIANNE on CPAP 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) Permanent atrial fibrillation (HCC)- Primary Atrial fibrillation Anticoagulant long-term use Encounter for long-term (current) use of anticoagulants Encounter for long-term (current) use of high-risk medication Encounter for long-term (current) use of other medications Pulmonary HTN (HCC) Chronic systolic (congestive) heart failure (HCC) Essential hypertension Unspecified essential hypertension Permanent atrial fibrillation (HCC)- Primary Atrial fibrillation Anticoagulant long-term use Encounter for long-term (current) use of anticoagulants Pulmonary HTN (HCC) Nonrheumatic tricuspid valve regurgitation 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) Nonrheumatic aortic valve insufficiency Nonrheumatic mitral valve regurgitation CHRISTIANNE on CPAP Hospital discharge follow-up Other follow-up examination 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)- Primary Normochromic normocytic anemia Morbidly obese (HCC) Morbid obesity Chronic obstructive pulmonary disease, unspecified COPD type (HCC) Longstanding persistent atrial fibrillation (HCC) Depression, unspecified depression type [facility] Permanent atrial fibrillation (HCC)- Primary Atrial fibrillation Anticoagulant long-term use Encounter for long-term (current) use of anticoagulants Encounter for long-term (current) use of high-risk medication Encounter for long-term (current) use of other medications Pulmonary HTN (HCC) CHRISTIANNE on CPAP 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) Permanent atrial fibrillation (HCC)- Primary Atrial fibrillation Anticoagulant long-term use Encounter for long-term (current) use of anticoagulants Encounter for long-term (current) use of high-risk medication Encounter for long-term (current) use of other medications Pulmonary HTN (HCC) Chronic systolic (congestive) heart failure (HCC) Essential hypertension Unspecified essential hypertension Permanent atrial fibrillation (HCC)- Primary Atrial fibrillation Anticoagulant long-term use Encounter for long-term (current) use of anticoagulants Pulmonary HTN (HCC) Nonrheumatic tricuspid valve regurgitation 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) Nonrheumatic aortic valve insufficiency Nonrheumatic mitral valve regurgitation CHRISTIANNE on CPAP Hospital discharge follow-up Other follow-up examination Abnormal protein electrophoresis- Primary [facility] Permanent atrial fibrillation (HCC)- Primary Atrial fibrillation Anticoagulant long-term use Encounter for long-term (current) use of anticoagulants Encounter for long-term (current) use of high-risk medication Encounter for long-term (current) use of other medications Pulmonary HTN (HCC) CHRISTIANNE on CPAP 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) Permanent atrial fibrillation (HCC)- Primary Atrial fibrillation Anticoagulant long-term use Encounter for long-term (current) use of anticoagulants Encounter for long-term (current) use of high-risk medication Encounter for long-term (current) use of other medications Pulmonary HTN (HCC) Chronic systolic (congestive) heart failure (HCC) Essential hypertension Unspecified essential hypertension Permanent atrial fibrillation (HCC)- Primary Atrial fibrillation Anticoagulant long-term use Encounter for long-term (current) use of anticoagulants Pulmonary HTN (HCC) Nonrheumatic tricuspid valve regurgitation 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) Nonrheumatic aortic valve insufficiency Nonrheumatic mitral valve regurgitation CHRISTIANNE on CPAP Hospital discharge follow-up Other follow-up examination Abnormal protein electrophoresis- Primary [facility] Diagnosis Permanent atrial fibrillation (HCC)- Primary Atrial fibrillation Anticoagulant long-term use Encounter for long-term (current) use of anticoagulants Encounter for long-term (current) use of high-risk medication Encounter for long-term (current) use of other medications Pulmonary HTN (HCC) CHRISTIANNE on CPAP 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) Permanent atrial fibrillation (HCC)- Primary Atrial fibrillation Anticoagulant long-term use Encounter for long-term (current) use of anticoagulants Encounter for long-term (current) use of high-risk medication Encounter for long-term (current) use of other medications Pulmonary HTN (HCC) Chronic systolic (congestive) heart failure (HCC) Essential hypertension Unspecified essential hypertension Permanent atrial fibrillation (HCC)- Primary Atrial fibrillation Anticoagulant long-term use Encounter for long-term (current) use of anticoagulants Pulmonary HTN (HCC) Nonrheumatic tricuspid valve regurgitation 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) Nonrheumatic aortic valve insufficiency Nonrheumatic mitral valve regurgitation CHRISTIANNE on CPAP Hospital discharge follow-up Other follow-up examination Iron deficiency anemia, unspecified iron deficiency anemia type- Primary documented in this encounter [facility]* Diagnosis Permanent atrial fibrillation (HCC)- Primary Atrial fibrillation Anticoagulant long-term use Encounter for long-term (current) use of anticoagulants Encounter for long-term (current) use of high-risk medication Encounter for long-term (current) use of other medications Pulmonary HTN (HCC) CHRISTIANNE on CPAP 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) Permanent atrial fibrillation (HCC)- Primary Atrial fibrillation Anticoagulant long-term use Encounter for long-term (current) use of anticoagulants Encounter for long-term (current) use of high-risk medication Encounter for long-term (current) use of other medications Pulmonary HTN (HCC) Chronic systolic (congestive) heart failure (HCC) Essential hypertension Unspecified essential hypertension Disorder of adrenal gland, unspecified (HCC)- Primary Permanent atrial fibrillation (HCC) Atrial fibrillation Permanent atrial fibrillation (HCC)- Primary Atrial fibrillation Anticoagulant long-term use Encounter for long-term (current) use of anticoagulants Pulmonary HTN (HCC) Nonrheumatic tricuspid valve regurgitation 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) Nonrheumatic aortic valve insufficiency Nonrheumatic mitral valve regurgitation CHRISTIANNE on CPAP Hospital discharge follow-up Other follow-up examination [facility] Diagnosis Permanent atrial fibrillation (HCC)- Primary Atrial fibrillation Anticoagulant long-term use Encounter for long-term (current) use of anticoagulants Encounter for long-term (current) use of high-risk medication Encounter for long-term (current) use of other medications Pulmonary HTN (HCC) CHRISTIANNE on CPAP 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) Permanent atrial fibrillation (HCC)- Primary Atrial fibrillation Anticoagulant long-term use Encounter for long-term (current) use of anticoagulants Encounter for long-term (current) use of high-risk medication Encounter for long-term (current) use of other medications Pulmonary HTN (HCC) Chronic systolic (congestive) heart failure (HCC) Essential hypertension Unspecified essential hypertension Disorder of adrenal gland, unspecified (HCC)- Primary Permanent atrial fibrillation (HCC)- Primary Atrial fibrillation Anticoagulant long-term use Encounter for long-term (current) use of anticoagulants Pulmonary HTN (HCC) Nonrheumatic tricuspid valve regurgitation 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) Nonrheumatic aortic valve insufficiency Nonrheumatic mitral valve regurgitation CHRISTIANNE on CPAP Hospital discharge follow-up Other follow-up examination [facility] Diagnosis Permanent atrial fibrillation (HCC)- Primary Atrial fibrillation Anticoagulant long-term use Encounter for long-term (current) use of anticoagulants Encounter for long-term (current) use of high-risk medication Encounter for long-term (current) use of other medications Pulmonary HTN (HCC) CHRISTIANNE on CPAP 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) Permanent atrial fibrillation (HCC)- Primary Atrial fibrillation Anticoagulant long-term use Encounter for long-term (current) use of anticoagulants Encounter for long-term (current) use of high-risk medication Encounter for long-term (current) use of other medications Pulmonary HTN (HCC) Chronic systolic (congestive) heart failure (HCC) Essential hypertension Unspecified essential hypertension Permanent atrial fibrillation (HCC)- Primary Atrial fibrillation Anticoagulant long-term use Encounter for long-term (current) use of anticoagulants Pulmonary HTN (HCC) Nonrheumatic tricuspid valve regurgitation 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) Nonrheumatic aortic valve insufficiency Nonrheumatic mitral valve regurgitation CHRISTIANNE on CPAP Hospital discharge follow-up Other follow-up examination Pulmonary HTN (HCC)- Primary Essential hypertension Unspecified essential hypertension documented in this encounter [facility]* Diagnosis Permanent atrial fibrillation (HCC)- Primary Atrial fibrillation Anticoagulant long-term use Encounter for long-term (current) use of anticoagulants Encounter for long-term (current) use of high-risk medication Encounter for long-term (current) use of other medications Pulmonary HTN (HCC) CHRISTIANNE on CPAP 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) Permanent atrial fibrillation (HCC)- Primary Atrial fibrillation Anticoagulant long-term use Encounter for long-term (current) use of anticoagulants Encounter for long-term (current) use of high-risk medication Encounter for long-term (current) use of other medications Pulmonary HTN (HCC) Chronic systolic (congestive) heart failure (HCC) Essential hypertension Unspecified essential hypertension Permanent atrial fibrillation (HCC)- Primary Atrial fibrillation Anticoagulant long-term use Encounter for long-term (current) use of anticoagulants Pulmonary HTN (HCC) Nonrheumatic tricuspid valve regurgitation 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) Nonrheumatic aortic valve insufficiency Nonrheumatic mitral valve regurgitation CHRISTIANNE on CPAP Hospital discharge follow-up Other follow-up examination Normochromic normocytic anemia- Primary Iron deficiency anemia, unspecified iron deficiency anemia type documented in this encounter [facility] note* Diagnosis Skin erythema- Primary Unspecified erythematous condition Right elbow pain Pain in joint, upper arm [facility] Diagnosis Permanent atrial fibrillation (HCC)- Primary Atrial fibrillation Anticoagulant long-term use Encounter for long-term (current) use of anticoagulants Encounter for long-term (current) use of high-risk medication Encounter for long-term (current) use of other medications Pulmonary HTN (HCC) CHRISTIANNE on CPAP 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) Permanent atrial fibrillation (HCC)- Primary Atrial fibrillation Anticoagulant long-term use Encounter for long-term (current) use of anticoagulants Encounter for long-term (current) use of high-risk medication Encounter for long-term (current) use of other medications Pulmonary HTN (HCC) Chronic systolic (congestive) heart failure (HCC) Essential hypertension Unspecified essential hypertension Permanent atrial fibrillation (HCC)- Primary Atrial fibrillation Anticoagulant long-term use Encounter for long-term (current) use of anticoagulants Pulmonary HTN (HCC) Nonrheumatic tricuspid valve regurgitation 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) Nonrheumatic aortic valve insufficiency Nonrheumatic mitral valve regurgitation CHRISTIANNE on CPAP Hospital discharge follow-up Other follow-up examination Iron deficiency anemia, unspecified iron deficiency anemia type- Primary Thrombocytopenia (HCC) Unspecified thrombocytopenia documented in this encounter [facility] for referral (narrative)* Consultation (Routine) - Pending Review Specialty Diagnoses / Procedures Referred By Contac t Referred To Contact Plastic Surgery Diagnoses Eyelid lesion, benign Procedures [place] OFFICE/OUTPATIENT NEW HIGH MDM 60 MINUTES Kory Ibarra DO [address] [place] [address] [facility] Plastic [address] [place] [address] [place] [address] Referral ID Status Reason Start Date Expiration Date Visits Requested Visits Authorized [id number] Pending Review Specialty Services Required 03/25/2023 03/24/2024 1 1 [facility] for referral (narrative)* Consultation (Routine) - Pending Review Specialty Diagnoses / Procedures Referred By Contac t Referred To Contact Obstetrics and Gynecology Diagnoses Postmenopausal vaginal bleeding Procedures [place] OFFICE/OUTPATIENT NEW HIGH [facility] 60 MINUTES Kory Ibarra DO [address] [place] [address] [facility] Language Specialist [address] [place] [address] Referral ID Status Reason Start Date Expiration Date Visits Requested Visits Authorized [id number] Pending Review Specialty Services Required 12/21/2023 12/20/2024 1 1 [facility] for referral (narrative)* Medications - Pending Review Specialty Diagnoses / Procedures Referred By Contac t Referred To Contact Kory Ibarra DO [address] [place] [address] Phone: tel: fax: Referral ID Status Reason Start Date Expiration Date V isits Requested Visits Authorized [id number] Pending Review 04/03/2024 09/30/2024 1 1 [facility] for referral (narrative)No reason for referral information [facility] Work Phone: Reason for visit Narrative* Imaging (Emergency) - Closed Specialty Diagnoses / Procedures Referred By Contac t Referred To Contact Radiology Diagnoses Acute midline low back pain without sciatica Bandemia Procedures CT lumbar spine wo IV contrast Curt Last PA-C [address] [facility] [address] [place] [address] Phone: tel: fax: Referral ID Status Reason Start Date Expiration Date Visits Re quested Visits Authorized [id number] Closed 02/14/2024 02/13/2025 1 1 [facility] for visit Narrative* Diagnostic Procedure Only (Urgent) - Closed Specialty Diagnoses / Procedures Referred By Contac t Referred To Contact XR IMAGING Diagnoses Right elbow pain Procedures XR ELBOW GENERAL 2V AP/LAT RIGHT RADEX ELBOW 2 VIEWS Miranda Marion, MARIUSZ.DESKTOP ENGINEER [address] [place] [address] Phone: tel: fax: [place] [address] Referral ID Status Reason Start Date Expiration Date V isits Requested Visits Authorized [id number] Closed Auto-Generate d Referral 08/09/2024 09/08/2025 1 1 [facility] Summary Purpose Family History Relationship Condition Age at Onset Recorded Date/T debbie Unknown Family History?No pe rtinent history Unknown October 27, 2013 4:09pm Family History?No pe rtinent history Unknown July 14, 2016 7:24pm Relationship Condition Age at Onset Recorded Date/T debbie grandmother Malignant neoplasm of breast Unknown father Cerebrovascular accident (CVA) Unknown Advance Directives Documents on File Type Date Recorded 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 Advance Directives and Living Will Power of Equipment Superintendent Latest Code Status on File Code Status Date Activated Date Inactivated Comments Full Code 06/08/2017 12:50 AM 06/10/2017 7:14 PM Full Code 04/06/2017 7:21 AM 04/06/2017 12:40 PM Documents on File Type Date Recorded 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 ACP-Advance Directive ACP-Power of Equipment Superintendent Documents on File Type Date Recorded 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 ACP-Advance Directive ACP-Power of Equipment Superintendent Latest Code Status on File Code Status Date Activated Date Inactivated Comments Full Code 06/08/2017 12:50 AM 06/10/2017 7:14 PM Full Code 04/06/2017 7:21 AM 04/06/2017 12:40 PM Advance Directive Response Recorded Date/ Time Advance Directives No October 27, 2013 5:19pm Living Will No January 18 9:29pm Power of Equipment Superintendent No January 18, 2022 9:29pm Advance Directive Response Recorded Date/ Time Name of Medical Power of Equipment Superintendent jb [email or web address] January 19, 2022 12:21am Advance Directives No October 27, 2013 5:19pm Living Will Yes January 19 12:21am Power of Equipment Superintendent Yes January 19, 2022 12:21am Date Activated Date Inactivated Comments 02/15/2024 10:29 AM Date Activated Date Inactivated Comments 02/15/2024 10:29 AM Date Activated Date Inactivated Comments 02/15/2024 10:29 AM 02/22/2024 8:37 PM Date Activated Date Inactivated Comments 02/15/2024 10:29 AM 02/22/2024 8:37 PM Date Activated Date Inactivated Comments 04/28/2024 4:55 AM Date Activated Date Inactivated Comments 02/15/2024 10:29 AM 02/22/2024 8:37 PM Date Activated Date Inactivated Comments 04/28/2024 4:55 AM 05/08/2024 8:11 PM Date Activated Date Inactivated Comments 02/15/2024 10:29 AM 02/22/2024 8:37 PM Date Activated Date Inactivated Comments 04/28/2024 4:55 AM 05/08/2024 8:11 PM Advance Directive Response Recorded Date/ Time Living Will No June 02, 2024 11:47am Do you have a Healthcare Power of Equipment Superintendent? No June 02, 2024 11:47am Advance Directives No October 27, 2013 6:19pm Advance Directive Response Recorded Date/ Time Living Will No June 02, 2024 3:35pm Do you have a Healthcare Power of Equipment Superintendent? No June 02, 2024 3:35pm Advance Directives No October 27, 2013 6:19pm Assessments Diagnosis Atrial fibrillation, unspecified type (HCC) Diagnosis Atrial fibrillation, unspecified type (HCC) Diagnosis Atrial fibrillation, unspecified type (HCC) Diagnosis Anticoagulant long-term use Encounter for long-term (current) use of anticoagulants Hypercholesteremia Pure hypercholesterolemia Essential hypertension Unspecified essential hypertension Diagnosis Chronic atrial fibrillation (HCC) Atrial fibrillation Diagnosis Breast cancer screening Breast screening, unspecified Diagnosis Atrial fibrillation, unspecified type (HCC) Diagnosis Atrial fibrillation, unspecified type (HCC) Diagnosis Chronic atrial fibrillation (HCC) Atrial fibrillation Reason for Referral Specialty Diagnoses / Procedures Referred By Kat t Referred To Contact Radiology Diagnoses Mass of upper outer quadrant of right breast Procedures US GUIDED RIGHT BREAST BIOPSY Laura Yang, MARIUSZ - DESKTOP ENGINEER [address] [place] [address] Referral ID Status Reason Start Date Expiration Date Visits Re quested Visits Authorized [id number] Open 07/30/2021 07/30/2022 1 1 Specialty Diagnoses / Procedures Referred By Contac t Referred To Contact Cardiology Diagnoses Chronic atrial fibrillation (HCC) Nonrheumatic mitral valve regurgitation Procedures Echo 2D Doppler Benita Frank MD [address] [place] [address] [address] [place] [address] Referral ID Status Reason Start Date Expiration Date Visits Re quested Visits Authorized [id number] Closed 09/17/2021 10/17/2021 1 1 Specialty Diagnoses / Procedures Referred By Contac t Referred To Contact Diagnoses CHRISTIANNE on CPAP Cough variant asthma Kory Ibarra, DO [address] [place] [address] Referral ID Status Reason Start Date Expiration Date Visits Re quested Visits Authorized [id number] Closed 1 1 Specialty Diagnoses / Procedures Referred By Contac t Referred To Contact Diagnoses CHRISTIANNE on CPAP Cough variant asthma Kory Ibarra, DO [address] [facility] [address] [place] [address] Referral ID Status Reason Start Date Expiration Date V isits Requested Visits Authorized [id number] Pending Review 12/21/2023 06/18/2024 1 1 Chief Complaint and Reason for Visit Chief Complaint ACUTE HYPOXIC RESPIR ATORY FAILURE Reason for Visit Acute bronchospasm Acute hyperglycemia Acute respiratory failure with hypoxia Atrial fibrillation with RVR Chief Complaint ACUTE HYPOXIC RESPIR ATORY FAILURE ACUTE HYPOXIC RESPIRATORY FAILURE ACUTE HYPOXIC RESPIRATORY FAILURE ACUTE HYPOXIC RESPIRATORY FAILURE ACUTE HYPOXIC RESPIRATORY FAILURE ACUTE HYPOXIC RESPIRATORY FAILURE Reason for Visit Acute bronchospasm Acute hyperglycemia Acute respiratory failure with hypoxia Atrial fibrillation with RVR Chief Complaint Admit Date Shortness of breath May 25, 2024 3:1 9pm COPD VS CHF EXACERBATION June 02 1:30pm Reason for Visit Admit Date Acute non-recurrent maxillary sinusitis May 25, 2024 3:19pm Atrial fibrillation May 25, 2024 3:1 9pm Atrial fibrillation with RVR June 02, 2024 1:30pm Respiratory failure June 02, 2024 1:3 0pm Chief Complaint Admit Date Shortness of breath May 25, 2024 3:1 9pm COPD VS CHF EXACERBATION June 02 1:30pm COPD VS CHF EXACERBATION June 03 1:24pm COPD VS CHF EXACERBATION June 04 1:52pm COPD VS CHF EXACERBATION June 05 9:19am Reason for Visit Admit Date Acute non-recurrent maxillary sinusitis May 25, 2024 3:19pm Atrial fibrillation May 25, 2024 3:1 9pm Acute heart failure with preserved eject ion fraction (HFpEF) June 02, 2024 1:30pm Atrial fibrillation with RVR June 02, 2024 1:30pm Respiratory failure June 02, 2024 1:3 0pm COPD exacerbation June 02, 2024 1:3 0pm Additional Source Comments INFORMATION SOURCE (unrecogn ized section and content) DATE CREATED AUTHOR 09/02/2017 [facility] DATE CREATED AUTHOR AUTHOR'S ORGANIZ ATION 10/15/2021 [facility] DATE CREATED AUTHOR AUTHOR'S ORGANIZ ATION 12/13/2021 [facility] DATE CREATED AUTHOR AUTHOR'S ORGANIZ ATION 06/17/2024 [facility] DATE CREATED AUTHOR AUTHOR'S ORGANIZ ATION 08/12/2024 [facility] DATE CREATED AUTHOR AUTHOR'S ORGANIZ ATION 08/18/2024 [facility] Care Teams (unrecognized sec tion and content) Shop Director Relationship Specialty Start Date End Date Kory Ibarra, DO [address] [place] [place] [address] PCP - General 09/13/14 Shop Director Relationship Specialty Start Date End Date Kory Ibarra, DO [address] [place] [place] [address] PCP - General 09/13/14 Shop Director Relationship Specialty Start Date End Date Kory Ibarra, DO [address] [place] [place] [address] PCP - General 09/13/14 Shop Director Relationship Specialty Start Date End Date Kory Ibarra, DO [address] [place] [address] PCP - General 09/13/14 Shop Director Relationship Specialty Start Date End Date Kory Ibarra, DO [address] [place] [address] PCP - General 09/13/14 Shop Director Relationship Specialty Start Date End Date Kory Ibarra, DO [address] [place] [place] [address] PCP - General 08/13/18 Shop Director Relationship Specialty Start Date End Date Kory Ibarra, DO [address] [place] [place] [address] PCP - General 08/13/18 Shop Director Relationship Specialty Start Date End Date NeftalystanleyKory doherty, DO [address] [place] [place] [address] PCP - General 08/13/18 Shop Director Relationship Specialty Start Date End Date NeftalystanleyKory doherty, DO [address] [place] [address] PCP - General 08/13/18 Shop Director Relationship Specialty Start Date End Date Kory Ibarra, DO [address] [place] [address] PCP - General 08/13/18 Shop Director Relationship Specialty Start Date End Date Kory Ibarra, DO [address] [place] [address] PCP - General 08/13/18 Shop Director Relationship Specialty Start Date End Date Kory Ibarra, [address] [place] [address] PCP - General 08/13/18 Shop Director Relationship Specialty Start Date End Date Kory Ibarra, DO [address] [place] [address] PCP - General 08/13/18 Shop Director Relationship Specialty Start Date End Date Kory Ibarra [address] [place] [address] PCP - General Family Medicine 12/29/22 Shop Director Relationship Specialty Start Date End Date Kory Ibarra, DO [address] [place] [address] PCP - General 08/13/18 Shop Director Relationship Specialty Start Date End Date Kory Ibarra, DO [address] [place] [address] PCP - General 08/13/18 Shop Director Relationship Specialty Start Date End Date Kory Ibarra, DO [address] [place] [address] PCP - General 08/13/18 Shop Director Relationship Specialty Start Date End Date Kory Ibarra, DO [address] [place] [address] PCP - General 08/13/18 Shop Director Relationship Specialty Start Date End Date Kory Ibarra, DO [address] [place] [address] PCP - General 08/13/18 Shop Director Relationship Specialty Start Date End Date Kory Ibarra, DO [address] [place] [address] PCP - General 08/13/18 Shop Director Relationship Specialty Start Date End Date Kory Ibarra, DO [address] [place] [address] PCP - General 08/13/18 Shop Director Relationship Specialty Start Date End Date Kory Ibarra, DO [address] [place] [address] PCP - General 08/13/18 Shop Director Relationship Specialty Start Date End Date Kory Ibarra, DO [address] [place] [address] PCP - General 08/13/18 Shop Director Relationship Specialty Start Date End Date Kory Ibarra, DO [address] [place] [address] PCP - General 08/13/18 Shop Director Relationship Specialty Start Date End Date Kory Ibarra, DO [address] [place] [address] PCP - General 08/13/18 Shop Director Relationship Specialty Start Date End Date Kory Ibarra, DO [address] [place] [id number] PCP - General Family Medicine 12/29/22 Shop Director Relationship Specialty Start Date End Date Kory Ibarra, DO [address] [place] [address] PCP - General 08/13/18 Shop Director Relationship Specialty Start Date End Date Kory Ibarra, DO [address] [place] [address] PCP - General 08/13/18 Shop Director Relationship Specialty Start Date End Date Kory Ibarra, DO [address] [place] [address] PCP - General 08/13/18 Shop Director Relationship Specialty Start Date End Date Kory Ibarra, DO [address] [place] [address] PCP - General 08/13/18 Shop Director Relationship Specialty Start Date End Date Kory Ibarra, DO [address] [place] [address] PCP - General 08/13/18 Shop Director Relationship Specialty Start Date End Date Kory Ibarra, DO [address] [place] [address] PCP - General 08/13/18 Shop Director Relationship Specialty Start Date End Date Kory Ibarra, DO [address] [place] [address] PCP - General 08/13/18 Shop Director Relationship Specialty Start Date End Date Kory Ibarra, DO [address] [place] [address] PCP - General 08/13/18 Shop Director Relationship Specialty Start Date End Date Kory Ibarra DO [address] [place] [phone] PCP - General Family Medicine 12/29/22 Shop Director Relationship Specialty Start Date End Date Kory Ibarra, DO [address] [place] [address] PCP - General 08/13/18 Shop Director Relationship Specialty Start Date End Date Kory Ibarra, DO [address] [place] [address] PCP - General 08/13/18 Shop Director Relationship Specialty Start Date End Date Kory Ibarra, DO [address] [place] [address] PCP - General 08/13/18 Shop Director Relationship Specialty Start Date End Date Kory Ibarra, DO [address] [place] [address] PCP - General 08/13/18 Shop Director Relationship Specialty Start Date End Date Koyr Ibarra DO [address] [place] [address] PCP - General 08/13/18 Shop Director Relationship Specialty Start Date End Date Kory Ibarra, DO [address] [place] [address] PCP - General 08/13/18 Shop Director Relationship Specialty Start Date End Date Kory Ibarra, DO [address] [place] [address] PCP - General 08/13/18 Shop Director Relationship Specialty Start Date End Date Kory Ibarra, DO [address] [place] [address] PCP - General 08/13/18 Jamie Jimenez MD [address] [place] [address] Surgeon Urology 02/15/24 Shop Director Relationship Specialty Start Date End Date NeftalyKory pearce, DO [address] [place] [address] PCP - General 08/13/18 Jamie Jimenez MD [address] [place], [place] [id number] Surgeon Urology 02/15/24 Shop Director Relationship Specialty Start Date End Date Kory Ibarra ChayitoDO [address] [place] [address] PCP - General 08/13/18 Jamie Jimenez MD [address] [address] Surgeon Urology 02/15/24 Shop Director Relationship Specialty Start Date End Date Fred Kory Chayito, DO [address] [place], [place] [phone] PCP - General 08/13/18 Shop Director Relationship Specialty Start Date End Date Kory Ibarra, DO [address] [place] [address] PCP - General 08/13/18 Shop Director Relationship Specialty Start Date End Date Kory Ibarra DO [address] [place] [phone] PCP - General 08/13/18 Jamie Jimenez MD [address] [address] Surgeon Urology 02/15/24 Shop Director Relationship Specialty Start Date End Date Kory Ibarra ChayitoDO [address] [place] [phone] PCP - General 08/13/18 Jamie Jimenez MD [address] [facility] [address] [place] [address] Surgeon Urology 02/15/24 Shop Director Relationship Specialty Start Date End Date Kory Ibarra DO [address] [place] [address] PCP - General 08/13/18 Jamie Jimenez MD [address] [address] Surgeon Urology 02/15/24 Shop Director Relationship Specialty Start Date End Date Kory Ibarra DO [address] [place] [phone] PCP - General 08/13/18 Jamie Jimenez MD [address] [id number] Surgeon Urology 02/15/24 Shop Director Relationship Specialty Start Date End Date Kory Ibarra DO [address] [facility] [address] [place] [phone] PCP - General 08/13/18 Jamie Jimenez MD [address] [address] Surgeon Urology 02/15/24 Shop Director Relationship Specialty Start Date End Date Kory Ibarra DO [address] [facility] [address] [place] [phone] PCP - General 08/13/18 Jamie Jimenez MD [address] [address] Surgeon Urology 02/15/24 Shop Director Relationship Specialty Start Date End Date Kory Ibarra DO [address] [facility] [address] [place] [phone] PCP - General 08/13/18 Jamie Jimenez MD [address] [address] Surgeon Urology 02/15/24 Shop Director Relationship Specialty Start Date End Date Kory Ibarra DO [address] [place] [address] PCP - General 08/13/18 Jamie Jimenez MD [address] [id number] Surgeon Urology 02/15/24 Shop Director Relationship Specialty Start Date End Date Kory Ibarra DO [address] [place] [phone] PCP - General 08/13/18 Jamie Jimenez MD [address] [address] Surgeon Urology 02/15/24 Shop Director Relationship Specialty Start Date End Date Kory Ibarra DO [address] [place] [address] PCP - General 08/13/18 Jamie Jimenez MD [address] [address] Surgeon Urology 02/15/24 Shop Director Relationship Specialty Start Date End Date Kory Ibarra DO [address] [place] [phone] PCP - General 08/13/18 Jamie Jimenez MD [address] [place] [address] Surgeon Urology 02/15/24 Team Status: Active Member Role Status Dates Dr. Kory Ibarra DO Primary Care Provider Active Team Status: Inactive Member Role Status Dates Dr. Davis Irene DO Primary Care Provider Active Start: May 25, 2024 End: May 25, 2024 Dr. Davis Irene , DO Referring Provider Active Start: May 25, 2024 End: May 25, 2024 Scott MURRY, PA Attending Provider Active Sta rt: May 25, 2024 End: May 25, 2024 Team Status: Active Member Role Status Dates Dr. Alyce Morel DO Emergency Provider Active S tart: June 02, 2024 Dr. Kory Ibarra DO Primary Care Provider Active Start: June 02, 2024 Dr. Wilbert Umanzor DO Admit Provider Active Start: June 02, 2024 Dr. Wilbert Umanzor DO Attending Provider Active Start: June 02, 2024 Dr. Wilbert Umanzor DO Referring Provider Active Start: June 02, 2024 Team Status: Inactive Member Role Status Dates Dr. Alyce Morel DO Emergency Provider Active S tart: June 02, 2024 End: June 05, 2024 Dr. Kory Ibarra DO Primary Care Provider Active Start: June 02, 2024 End: June 05, 2024 Dr. Wilbert Umanzor DO Admit Provider Active Start: June 02, 2024 End: June 05, 2024 Dr. Wilbert Umanzor DO Referring Provider Active Start: June 02, 2024 End: June 05, 2024 Dr. Wilbert Umanzor DO Other Provider Active Start: June 02, 2024 End: June 05, 2024 Dr. John Paul Will , Attending Provider Active Start: June 02, 2024 End: June 05, 2024 Dr. Raul Helton MD Other Provider Active Sta rt: June 02, 2024 End: June 05, 2024 Team Status: Active Member Role Status Dates Dr. Kory Ibarra DO Primary Care Provider Active Start: June 03, 2024 Dr. Jermaine Hagen MD Attending Provider Active S tart: June 03, 2024 Team Status: Active Member Role Status Dates Dr. Alyce Morel DO Emergency Provider Active S tart: June 03, 2024 Dr. Kory Ibarra DO Primary Care Provider Active Start: June 03, 2024 Dr. Wilbert Umanzor DO Admit Provider Active Start: June 03, 2024 Dr. Wilbert Umanzor DO Referring Provider Active Start: June 03, 2024 Dr. Wilbert Umanzor DO Other Provider Active Start: June 03, 2024 Dr. Raul Helton MD Attending Provider Active Start: June 03, 2024 Dr. Raul Helton MD Other Provider Active Sta rt: June 03, 2024 Team Status: Active Member Role Status Dates Dr. Alyce Morel DO Emergency Provider Active S tart: June 04, 2024 Dr. Kory Ibarra DO Primary Care Provider Active Start: June 04, 2024 Dr. Wilbert Umanzor DO Admit Provider Active Start: June 04, 2024 Dr. Wilbert Umanzor DO Referring Provider Active Start: June 04, 2024 Dr. Wilbert Umanzor DO Other Provider Active Start: June 04, 2024 Dr. Raul Helton MD Attending Provider Active Start: June 04, 2024 Dr. Raul Helton MD Other Provider Active Sta rt: June 04, 2024 Team Status: Active Member Role Status Dates Dr. Alyce Morel DO Emergency Provider Active S tart: June 05, 2024 Dr. Kory Ibarra DO Primary Care Provider Active Start: June 05, 2024 Dr. Wilbert Umanzor DO Admit Provider Active Start: June 05, 2024 Dr. Wilbert Umanzor DO Referring Provider Active Start: June 05, 2024 Dr. Wilbert Umanzor DO Other Provider Active Start: June 05, 2024 Dr. John Paul Will DO Attending Provider Active Start: June 05, 2024 Dr. John Paul Will DO Other Provider Active Star t: June 05, 2024 Dr. Raul Helton MD Other Provider Active Sta rt: June 05, 2024 Shop Director Relationship Specialty Start Date End Date Kory Ibarra DO [address] [place] [phone] PCP - General 08/13/18 Jamie Jimenez MD [address] [place] [address] Surgeon Urology 02/15/24 Shop Director Relationship Specialty Start Date End Date Kory Ibarra DO [address] [place] [phone] PCP - General 08/13/18 Jamie Jimenez MD [address] [id number] Surgeon Urology 02/15/24 Shop Director Relationship Specialty Start Date End Date Kory Ibarra DO 195 [facility] [address] [place] [phone] PCP - General 08/13/18 Jamie Jimenez MD [address] [address] Surgeon Urology 02/15/24 Shop Director Relationship Specialty Start Date End Date Kory Ibarra DO 195 [facility] [address] [place] [phone] PCP - General 08/13/18 Jamie Jimenez MD [address] [address] Surgeon Urology 02/15/24 Shop Director Relationship Specialty Start Date End Date Kory Ibarra DO 195 [facility] [address] [place] [phone] PCP - General 08/13/18 Jamie Jimenez MD [address] [id number] Surgeon Urology 02/15/24 Shop Director Relationship Specialty Start Date End Date Kory Ibarra DO [address] [place] [address] PCP - General 08/13/18 Jamie Jimenez MD [address] [id number] Surgeon Urology 02/15/24 Shop Director Relationship Specialty Start Date End Date Kory Ibarra DO 195 [facility] [address] [place] [address] PCP - General 08/13/18 Jamie Jimenez MD [address] [id number] Surgeon Urology 02/15/24 Shop Director Relationship Specialty Start Date End Date Kory Ibarra DO [address] [place] [address] PCP - General 08/13/18 Jamie Jimenez MD [address] [address] Surgeon Urology 02/15/24 Sindy Warren, RN Registered Nurse Gauge Controller Manager 05/10/24 05/19/24 Shop Director Relationship Specialty Start Date End Date Kory Ibarra DO [address] [place] [phone] PCP - General 08/13/18 Jamie Jimenez MD [address] [address] Surgeon Urology 02/15/24 Sindy Warren, RN Registered Nurse Gauge Controller Manager 05/10/24 05/19/24 Shop Director Relationship Specialty Start Date End Date Kory Ibarra DO 195 [facility] [address] [place] [phone] PCP - General 08/13/18 Jamie Jimenez MD [address] [address] Surgeon Urology 02/15/24 Shop Director Relationship Specialty Start Date End Date Kory Ibarra DO 195 [facility] [address] [place] [phone] PCP - General 08/13/18 Jamie Jimenez MD [address] [address] Surgeon Urology 02/15/24 Shop Director Relationship Specialty Start Date End Date Kory Ibarra DO [address] [place] [address] PCP - General Family Medicine 12/29/22 Shop Director Relationship Specialty Start Date End Date Kory Ibarra DO [address] [place] [address] PCP - General Family Medicine 12/29/22 Shop Director Relationship Specialty Start Date End Date Kory Ibarra DO 195 [facility] [address] [place] [address] PCP - General 08/13/18 Jamie Jimenez MD 201 [facility] [address] [place] [address] Surgeon Urology 02/15/24 Shop Director Relationship Specialty Start Date End Date Kory Ibarra DO 195 [facility] [address] [place] [address] PCP - General 08/13/18 Jamie Jimenez MD 201 [facility] 3 [place] [address] Surgeon Urology 02/15/24 Goals (unrecognized section and content) Goals may be documented in a n alternate sectionGoals may be documented in an alternate section Reason for Visit (unrecogniz ed section and content) Reason Comments Med Refill Reason Onset Date Comments Med Refill 06/16/2022 Reason Comments Medicare Annual Wellness Visit Subsequen t Reason Comments Cough Congestion, thick ye llow mucous, x 1.5 weeks Reason Comments 6 Month Follow-up Reason Onset Date Comments Med Refill 03/16/2023 Reason Comments Follow-up 6 month med check Reason Onset Date Comments Orders 03/25/2023 Plastic Surgeon referral Reason Onset Date Comments Med Refill 04/09/2023 Reason Onset Date Comments Appointment 04/13/2023 Reason Onset Date Comments Med Refill 05/07/2023 Reason Onset Date Comments Med Refill 05/11/2023 Reason Onset Date Comments Med Refill 05/26/2023 Reason Onset Date Comments ACM KRISTI RN 05/28/2023 Medication Ad herence review per request of payer Reason Comments 6 Month Follow-up Atrial Fibrillation Reason Onset Date Comments Med Refill 08/19/2023 Reason Onset Date Comments Other 10/04/2023 antibiotic Reason Onset Date Comments Medication Problem 10/04/2023 Reason Onset Date Comments Med Refill 10/06/2023 Reason Onset Date Comments Labs Only 11/16/2023 Reason Onset Date Comments Med Refill 11/17/2023 Reason Onset Date Comments Med Refill 11/24/2023 albuterol 108 (9 0 Base) MCG/ACT inhaler Reason Onset Date Comments Cough 12/01/2023 Shortness of Breath 12/01/2023 Reason Onset Date Comments Appointment Request 12/13/2023 LEROY Reason Comments Other JAMIN- COVID PNEUMONIA Flu Vaccine Reason Onset Date Comments Referral 12/21/2023 [facility] Reason Comments 6 Month Follow-up Atrial Fibrillation Congestive Heart Failure Reason Onset Date Comments Back Pain 01/31/2024 Reason Comments Low Back Pain R low back pain x1 w [place] Reason Comments Back Pain For approx 1 week, u nable to get into PCP Reason Comments Back Pain Reason Comments ER Follow-up For right sided pain Flu Vaccine Patient has already received the flu vaccine. Chart has been updated to reflect Reason Onset Date Comments Other 02/15/2024 Hospital follow up , adrenal mass and microhematuria Reason Comments Back Pain Abdominal Pain Patient arrived to E D after being advised by PCP to come in to be admitted. Was seen multiple times for back/abdominal pain at ED with no findings. Saw PCP today and blood work has gotten worse and PCP wants to come in to be admitted. Pain 11/22 Specialty Diagnoses / Procedures Referred By Kat t Referred To Contact Diagnoses Atypical back pain Abdominal pain, unspecified abdominal location Acute midline low back pain without sciatica Procedures .. Ana Martinez MD [address] [place] [address] Phone: tel: fax: [facility] Cardiac Progressive Care Unit PCU [address] [place] [address] Phone: tel: Referral ID Status Reason Start Date Expiration Date Visits Re quested Visits Authorized [id number] 1 Reason Comments Follow-up Check up Reason Onset Date Comments Appointment 03/13/2024 03/13/24 Pt Priya craft calling to ask the office /Provider if her Mother could have a SOONER appt than 06.21.24 with Provider since being out of the Hospital she is asking for a call back to discuss Reason Comments Hospital Follow-up 02/14/24 seen at [facility] for Back pain and high white blood count Reason Onset Date Comments Advice Only 04/04/2024 Reason Onset Date Comments Blood in Urine 12/13/2023 Reason Onset Date Comments Other 04/13/2024 Eliquis Reason Onset Date Comments Cancelled Appointment 04/05/2024 Reason Comments Fatigue Per family increased fatigued and generalized weakness x 1 month. States N/V/D and loss of appetite x 1 month. Was seen at her cardiologists office today & her digoxin level was elevated. Hx of Afib. History of an a recent adrenal mass finding. Specialty Diagnoses / Procedures Referred By Kat t Referred To Contact Diagnoses Generalized weakness Procedures . Yanelis Higgins MD [address] [place] [address] Phone: tel: fax: [facility] EM[facility]PT [address] [place] [phone] Phone: tel: Referral ID Status Reason Start Date Expiration Date Visits Re quested Visits Authorized [id number] 1 1 Reason Comments Hospital Follow-up Atrial Fibrillation Congestive Heart Failure Reason Comments Hospital Follow-up Reason Onset Date Comments Results 06/23/2024 04. Reason Onset Date Comments Referral 07/03/2024 Dr Yu Reason Onset Date Comments Med Refill 07/17/2024 Reason Comments Follow-up Atrial Fibrillation Reason Onset Date Comments Referral 08/01/2024 Reason Comments Pain (Elbow Pain) right redness and sw elling x 2 days Reason Onset Date Comments Med Refill 08/02/2024 Reason Onset Date Comments URI 08/21/2024 Reason Onset Date Comments Durable Medical Equipment 08/23/2024 Source Comments (unrecognize d section and content) In the event this informatio n is protected by the Federal Confidentiality of Alcohol and Drug Abuse Patient Records regulations: The Federal rules restrict any use of the information to criminally investigate or prosecute any alcohol or drug abuse patient.[facility] the event this information is protected by the Federal Confidentiality of Alcohol and Drug Abuse Patient Records regulations: The Federal rules restrict any use of the information to criminally investigate or prosecute any alcohol or drug abuse patient.[facility] the event this information is protected by the Federal Confidentiality of Alcohol and Drug Abuse Patient Records regulations: The Federal rules restrict any use of the information to criminally investigate or prosecute any alcohol or drug abuse patient.[facility] the event this information is protected by the Federal Confidentiality of Alcohol and Drug Abuse Patient Records regulations: The Federal rules restrict any use of the information to criminally investigate or prosecute any alcohol or drug abuse patient.[facility] the event this information is protected by the Federal Confidentiality of Alcohol and Drug Abuse Patient Records regulations: The Federal rules restrict any use of the information to criminally investigate or prosecute any alcohol or drug abuse patient.[facility] Scheduled Active and Recently Administ ered Medications (unrecognized section and content) Medication Order 02/02/2024 02/03/2024 02/04/2024 acetaminophen (Tylenol) tablet 1,000 mg (COMPLETED) 1,000 mg, Oral, Once, On Wed02/04/24 at 2210, For 1 dose, Maximum dose of acetaminophen is 4000 mg from all sources in 24 hours. 221 (Given - Provid er: Allison Drake RN) Lidocaine 4 % patch 1 patch 1 patch, TransDERmal, Administer over 12 Hours, Once, On Wed02/04/24 at 2215, For 1 dose, Apply patch to right low back. Patch may remain in place for up to 12 hours in any 24 hour period. 221 (Medication Leroy lied - Provider: Allison Drake RN)2240 (Due: Medication Removed - Provider: Automatic Discharge Provider - Comment: Time automatically adjusted from order being discontinued) predniSONE (Deltasone) tablet 60 mg (COMPLETED) 60 mg, Oral, Once, On Wed02/04/24 at 2155, For 1 dose 221 (Given - Provid er: Allison Drake RN) Scheduled Medication Order 02/09/2024 02/10/2024 02/11/2024 HYDROcodone-acetaminophen (Epworth) 5-325 MG per tablet 1 tablet (COMPLETED) 1 tablet, Oral, Once, On Wed02/11/24 at 2300, For 1 dose, Maximum dose of acetaminophen is 4000 mg from all sources in 24 hours. 230 (Given - Provid er: Mary Atkinson RN) morphine injection 4 mg (COMPLETED) 4 mg, IntraMUSCular, Once, On Wed02/11/24 at 2035, For 1 dose 2037 (Given - Provid er: Mary Atkinson RN) Scheduled Medication Order 02/20/2024 02/21/2024 02/22/2024 acetaminophen (Tylenol) tablet 1,000 mg 1,000 mg, Oral, Every 8 hours, First dose on 02/19/24 at 0830, Maximum dose of acetaminophen is 4000 mg from all sources in 24 hours. 0822 (Given - Provider: Diamond Weiss RN)1559 (Given - Provider: Diamond Weiss RN) 0043 (Given - Provider: Cristina Persaud RN - Comment: back pain)0842 (Given - Provider: Diamond Weiss RN)1726 (Given - Provider: Ashely Burgess RN) 0038 (Given - Provider: Allie Dubois RN)0831 (Given - Provider: Ashely Burgses RN)1619 (Given - Provider: Ashely Burgess, RN) apixaban (Eliquis) tablet 5 mg 5 mg, Oral, 2 times daily, First dose on Wed02/15/24 at 1030, Anticoagulant 0822 (Given - Provider: Diamond Weiss RN)2037 (Given - Provider: Cristina Persaud RN) 0842 (Given - Provider: Diamond Weiss RN)2002 (Given - Provider: Allie Dubois RN) 0831 (Given - Provider: Ashely Burgess RN) atorvastatin (Lipitor) tablet 10 mg 10 mg, Oral, Nightly, First dose on Wed02/15/24 at 2100 2037 (Given - Provider: Cristina Persaud RN) 2002 (Given - Provider: Allie Dubois RN) cephalexin (Keflex) capsule 1,000 mg 1,000 mg, Oral, 3 times daily, First dose on Wed02/16/24 at 1430, For 21 doses, Suspected Indication (Select all that apply): Skin and Soft Tissue Infection 0822 (Given - Provider: Diamond Weiss RN)1559 (Given - Provider: Diamond Weiss RN)2037 (Given - Provider: Cristina Persaud RN) 0842 (Given - Provider: Diamond Weiss RN)1558 (Given - Provider: Ashely Burgess, BELLA)2002 (Given - Provider: Allie Dubois, BELLA) 1013 (Given - Provider: Ashely Burgess, RN)1449 (Given - Provider: Ashely Burgess, RN) digoxin (Lanoxin) tablet 250 mcg 250 mcg, Oral, Daily, First dose (after last modification) on Wed02/19/24 at 0900 0823 (Given - Provider: Diamond Weiss RN) 0842 (Given - Provider: Diamond Weiss RN) 0831 (Given - Provider: Asehly Burgess RN) furosemide (Lasix) tablet 40 mg (CANCELED) 40 mg, Oral, Daily, First dose on Wed02/15/24 at 1030 0823 (Given - Provider: Diamond Weiss RN) 0842 (Given - Provider: Diamond Weiss RN) 0831 (Given - Provider: Ashely Burgess RN) furosemide (Lasix) tablet 80 mg 80 mg, Oral, Daily, First dose (after last modification) on Wed02/22/24 at 1145 1327 (Given - Provider: Ashely Burgess RN) influenza vaccine A&B surf ant adjuvanted (Fluad) HIGH-DOSE injection 0.5 mL 0.5 mL, IntraMUSCular, Prior to discharge, Starting on Wed02/16/24 at 0900, For 1 dose lisinopril tablet 20 mg (CANCELED) 20 mg, Oral, 2 times daily 8&2, First dose (after last modification) on Wed02/19/24 at 0800 0822 (Given - Provider: Diamond Weiss RN)1559 (Given - Provider: Diamond Weiss RN) 0842 (Given - Provider: Diamond Weiss RN)1559 (Given - Provider: Ashely Burgess RN) 0831 (Given - Provider: Ashely Burgess RN) lisinopril tablet 40 mg 40 mg, Oral, Daily With Lunch, First dose (after last modification) on Wed02/23/24 at 1200, Hold for BP<100 syst. metOLazone (Zaroxolyn) tablet 5 mg 5 mg, Oral, Daily with breakfast, First dose on Wed02/22/24 at 1130 1224 (Given - Provider: Ashely Burgess RN) metoprolol tartrate (Lopressor) tablet 100 mg 100 mg, Oral, 2 times daily, First dose (after last modification) on Wed02/21/24 at 2100, Hold if HR <60 or SBP<90 2002 (Given - Provider: Allie Dubois RN) 08 (Given - Provider: Ashely Burgess RN) metoprolol tartrate (Lopressor) tablet 75 mg (CANCELED) 75 mg, Oral, 2 times daily, First dose (after last modification) on Wed02/19/24 at 2100, Hold if HR <60 or SBP<90 0822 (Given - Provider: Diamond Weiss RN)2037 (Given - Provider: Cristina Persaud RN) 0842 (Given - Provider: Diamond Weiss, RN) miconazole (Micotin) 2 % powder Topical, 2 times daily, First dose on Wed02/16/24 at 2000, Sacrum/Abdominal folds: Fungal dermatitis -cleanse with soap and water, dry thoroughly, apply miconazole powder BID and PRN -keep areas dry with inner dry or ABD pads 0825 (Given - Provider: Diamond Weiss RN)2049 (Given - Provider: Cristina Persaud RN) 0845 (Given - Provider: Diamond Weiss, RN)221 (Given - Provider: Allie Dubois, RN) 1400 (Given - Provider: Ashely Burgess RN) rOPINIRole (Requip) tablet 0.5 mg (COMPLETED) 0.5 mg, Oral, Once, On Wed02/20/24 at 0115, For 1 dose 0131 (Given - Provider: Tracy Denson RN) sertraline (Zoloft) tablet 50 mg 50 mg, Oral, Nightly, First dose on Wed02/15/24 at 2100 2038 (Given - Provider: Cristina Persaud RN) 2002 (Given - Provider: Allie Dubois, BELLA) PRN Medication Order 02/20/2024 02/21/2024 02/22/2024 diphenhydrAMINE (BENADryl) capsule 50 mg(Linked Group 1) 50 mg, Oral, Nightly PRN, sleep, Starting on Wed02/20/24 at 0114 0131 (See Alternative - Provider: Tracy Denson RN) hydrALAZINE (Apresoline) injection 5 mg 5 mg, IntraVENous, Every 4 hours PRN, high blood pressure, sbp greater than 160, Starting on Wed02/16/24 at 0404 HYDROcodone-acetaminophen (Epworth) 5-325 MG per tablet 1 tablet 1 tablet, Oral, Every 6 hours PRN, severe pain (7-10), moderate pain (4-6), Starting on 02/20/24 at 0519, Maximum dose of acetaminophen is 4000 mg from all sources in 24 hours. 0525 (Given - Provider: Tracy Denson RN)1559 (Given - Provider: Diamond Weiss RN) Melatonin disintegrating tablet 10 mg(Linked Group 1) 10 mg, Oral, Nightly PRN, sleep, Starting on 02/20/24 at 0114 0131 (Given - Provider: Tracy Denson RN) miconazole (Micotin) 2 % powder Topical, PRN, itching, Starting on Wed02/16/24 at 1353, Sacrum/Abdominal folds: Fungal dermatitis -cleanse with soap and water, dry thoroughly, apply miconazole powder BID and PRN -keep areas dry with inner dry or ABD pads naloxone (Narcan) injection 0.4 mg 0.4 mg, IntraVENous, PRN, opioid reversal, Starting on Wed02/15/24 at 1351, For oversedation/difficult to rouse, pinpoint pupils, RR < 8; notify primary team monitoring and evaluation advisor if used ondansetron (Zofran) injection 4 mg(Linked Group 2) 4 mg, IntraVENous, Every 6 hours PRN, nausea, vomiting, Starting on Wed02/15/24 at 1029, 1st Line. Give IV if patient is unable to take orally. If inadequate response within 60 minutes, proceed to next-line agent or contact provider if no further options ordered. ondansetron ODT (Zofran-ODT) disintegrating tablet 4 mg(Linked Group 2) 4 mg, Oral, Every 8 hours PRN, nausea, vomiting, Starting on Wed02/15/24 at 1029, 1st Line. If inadequate response within 60 minutes, proceed to next-line agent or contact provider if no further options ordered. Patient should allow tablet to dissolve on tongue. Do not remove from blister pack until just before administering. polyethylene glycol (PEG) 3350 (Miralax) packet 17 g 17 g, Oral, Daily PRN, constipation, Starting on Wed02/15/24 at 1029, 1st line for treatment of constipation - give scheduled if no bowel movement in past 24 hours. tiZANidine (Zanaflex) tablet 4 mg 4 mg, Oral, Every 6 hours PRN, muscle spasms, Starting on Wed02/15/24 at 1029 traZODone (Desyrel) tablet 50 mg(Linked Group 1) 50 mg, Oral, Nightly PRN, sleep, Starting on 02/20/24 at 0114 0131 (See Alternative - Provider: Tracy Denson RN) Linked Groups Order Group 1: Melatonin disintegrating tablet 10 mgJump to med 10 mg, Oral, Nightly PRN, sleep, Starting on 02/20/24 at 0114 Or traZODone (Desyrel) tablet 50 mgJump to med 50 mg, Oral, Nightly PRN, sleep, Starting on 02/20/24 at 0114 Or diphenhydrAMINE (BENADryl) capsule 50 mgJump to med 50 mg, Oral, Nightly PRN, sleep, Starting on 02/20/24 at 0114 Group 2: ondansetron ODT (Zofran-ODT) disintegrating tablet 4 mgJump to med 4 mg, Oral, Every 8 hours PRN, nausea, vomiting, Starting on Wed02/15/24 at 1029, 1st Line. If inadequate response within 60 minutes, proceed to next-line agent or contact provider if no further options ordered. Patient should allow tablet to dissolve on tongue. Do not remove from blister pack until just before administering. Or ondansetron (Zofran) injection 4 mgJump to med 4 mg, IntraVENous, Every 6 hours PRN, nausea, vomiting, Starting on Wed02/15/24 at 1029, 1st Line. Give IV if patient is unable to take orally. If inadequate response within 60 minutes, proceed to next-line agent or contact provider if no further options ordered. Scheduled Medication Order 05/06/2024 05/07/2024 05/08/2024 amoxicillin-clavulanate (Augmentin) 875-125 MG per tablet 1 tablet 1 tablet (875 mg), Oral, Every 12 hours scheduled (2 times per day), First dose on Wed05/08/24 at 1230, For 2 days, Suspected Indication (Select all that apply): Pneumonia (CAP) 1153 (Given - Provider: Fatuma Hernandez RN) apixaban (Eliquis) tablet 5 mg 5 mg, Oral, 2 times daily, First dose on Wed04/28/24 at 0900, Anticoagulant 0947 (Given - Provider: Selma Howell, BELLA)2006 (Given - Provider: Kya Morris RN) 0830 (Given - Provider: Smiley Wilson RN)2110 (Given - Provider: Brayden Quiñones RN) 08 (Given - Provider: Ying Francisco, BELLA) atorvastatin (Lipitor) tablet 10 mg 10 mg, Oral, Nightly, First dose on Wed04/28/24 at 2099 2006 (Given - Provider: Kya Morris RN) 2110 (Given - Provider: Brayden Quiñones RN) ceFAZolin (Ancef) 1,000 mg in sodium chloride 0.9 % 50 mL IVPB (CANCELED) 1,000 mg, IntraVENous, at 100 mL/hr, Administer over 30 Minutes, Every 8 hours, First dose on Wed05/05/24 at 1130, For 5 days, Mini-Bag Plus bag, Suspected Indication (Select all that apply): Pneumonia (HAP), Pneumonia (CAP) 0345 (New Bag - Provider: Carmen Rebolledo RN)0415 (Stopped - Provider: Carmen Rebolledo RN)1130 (New Bag - Provider: Selma Howell RN)1200 (Stopped - Provider: Selma Howell RN)2006 (New Bag - Provider: Kya Morris RN)2036 (Stopped - Provider: Kya Morris RN) 042 (New Bag - Provider: Kya Morris RN)0451 (Stopped - Provider: Kya Morris RN)1222 (New Bag - Provider: Porsha Andre RN)1252 (Stopped - Provider: Smiley Wilson RN)2105 (New Bag - Provider: Brayden Quiñones RN)2135 (Stopped - Provider: Brayden Quiñones RN) 041 (New Bag - Provider: Brayden Quiñones RN)0442 (Stopped - Provider: Brayden Quiñones RN) cetirizine (ZyrTEC) tablet 5 mg 5 mg, Oral, Nightly, First dose on Wed04/28/24 at 2099 2006 (Given - Provider: Kya Morris RN) 2110 (Given - Provider: Brayden Quiñones RN) folic acid (Folvite) tablet 1 mg 1 mg, Oral, Daily, First dose on Meghana 05/04/24 at 0900 0947 (Given - Provider: Selma Howell, BELLA) 0830 (Given - Provider: Smiley Wilson, RN) 08 (Given - Provider: Ying Francisco, BELLA) furosemide (Lasix) tablet 40 mg 40 mg, Oral, Daily, First dose on Wed05/08/24 at 1045 1121 (Given - Provider: Porsha Andre RN) levalbuterol (Xopenex) 1.25 MG/3ML nebulizer solution 1.25 mg 1.25 mg, Nebulization, 3 times daily, First dose (after last modification) on Wed05/05/24 at 2100 0815 (Given - Provider: Aman Escobedo RCP)1256 (Given - Provider: Aman Escobedo RCP)2047 (Given - Provider: Kat Molina RCP) 0749 (Given - Provider: Ya Cam RCP)1205 (Given - Provider: Ya Cam RCP)2100 (Given - Provider: Kat Molina RCP) 0805 (Given - Provider: Kamila Puentes RCP)1600 (Not Given - Provider: Fatuma Hernandez RN - Reason: Other - Comment: discharged) metoprolol tartrate (Lopressor) tablet 75 mg 75 mg, Oral, 2 times daily, First dose (after last modification) on Wed05/01/24 at 2100, Hold for HR < 58 or SBP < 98 0947 (Given - Provider: Selma Howell RN)2006 (Given - Provider: Kya Morris RN) 08 (Given - Provider: Smiley Wilson, BELLA)2110 (Given - Provider: Brayden Quiñones, BELLA) 811 (Given - Provider: Ying Francisco, BELLA) miconazole (Micotin) 2 % powder Topical, 2 times daily, First dose on Wed04/28/24 at 0900 0949 (Given - Provider: Selma Howell RN)2012 (Given - Provider: Kya Morris, BELLA) 0834 (Given - Provider: Smiley Wilson, BELLA)2110 (Given - Provider: Brayden Quiñones, BELLA) 0812 (Given - Provider: Ying Francisco, BELLA) mometasone-formoterol (Dulera 100) 100-5 MCG/ACT inhaler 2 puff 2 puff, Inhalation, 2 times daily, First dose on Wed05/05/24 at 2000, Rinse mouth with water after use to reduce aftertaste and incidence of candidiasis. Do not swallow. 0948 (Given - Provider: Selma Howell RN)2006 (Given - Provider: Kya Morris RN) 0830 (Given - Provider: Smiley Wilson, BELLA)211 (Given - Provider: Brayden Quiñones, BELLA) 0812 (Given - Provider: Ying Francisco, BELLA)1999 (Canceled Entry - Provider: Automatic Discharge Provider - Comment: Automatically canceled at discontinue of medication order) oseltamivir (Tamiflu) capsule 75 mg 75 mg, Oral, 2 times daily, First dose on Wed05/02/24 at 2100, For 5 days, Coverage: Influenza, Infection Site: Site Not Specified 0947 (Given - Provider: Selma Howell RN)2006 (Given - Provider: Kya Morris RN) 0830 (Given - Provider: Smiley Wilson, BELLA) pantoprazole (ProtoNix) EC tablet 40 mg 40 mg, Oral, Daily before breakfast, First dose on Wed05/06/24 at 0600, Do not crush, chew, or split. 0700 (Not Given - Provider: Selma Howell RN - Reason: Patient/family refused) 0507 (Given - Provider: Kya Morris RN) 0534 (Given - Provider: Brayden Quiñones, BELLA) phosphorus (K Phos Neutral) tablet 2 tablet (COMPLETED) 2 tablet (500 mg), Oral, Once, On Wed05/08/24 at 0700, For 1 dose, Each tablet contains 250 mg phosphorus, 298 mg sodium, 1.1 mEq potassium. 0812 (Given - Provider: Ying Francisco, BELLA) potassium phosphates 10 mmol in sodium chloride 0.9 % 100 mL IVPB (COMPLETED) 10 mmol, IntraVENous, at 66.7 mL/hr, Administer over 90 Minutes, Once, On 05/06/24 at 0530, For 1 dose 0550 (New Bag - Provider: Carmen Rebolledo, RN)0720 (Stopped - Provider: Carmen Rebolledo, BELLA) predniSONE (Deltasone) tablet 10 mg(Linked Group 1) 10 mg, Oral, Daily, First dose on Wed05/15/24 at 0900, For 3 doses predniSONE (Deltasone) tablet 20 mg(Linked Group 1) 20 mg, Oral, Daily, First dose (after last modification) on Wed05/12/24 at 0900, For 3 doses predniSONE (Deltasone) tablet 30 mg(Linked Group 1) 30 mg, Oral, Daily, First dose (after last modification) on Wed05/09/24 at 0900, For 3 doses predniSONE (Deltasone) tablet 40 mg (COMPLETED) 40 mg, Oral, Daily, First dose (after last modification) on Wed05/06/24 at 0900, For 3 doses 0947 (Given - Provider: Selma Howell RN) 0829 (Given - Provider: Smiley Wilson, BELLA) 0812 (Given - Provider: Ying Francisco, BELLA) sertraline (Zoloft) tablet 50 mg 50 mg, Oral, Daily, First dose on Wed04/28/24 at 0900 0947 (Given - Provider: Selma Howell RN) 0830 (Given - Provider: Smiley Wilson, BELLA) 0812 (Given - Provider: Ynig Francisco, BELLA) tiotropium (Spiriva Respimat) 2.5 MCG/ACT inhaler 2 puff 2 puff, Inhalation, Daily, First dose on Wed05/03/24 at 1115, Instruct to hold breath for 10 seconds after each inhalation. Before first use, prime inhaler by actuating until aerosal cloud is seen, then actuating 3 more times. 0949 (Given - Provider: Selma Howell RN) 0830 (Given - Provider: Smiley Wilson, BELLA) 0812 (Given - Provider: Ying Francisco, BELLA) PRN Medication Order 05/06/2024 05/07/2024 05/08/2024 acetaminophen (Tylenol) suppository 650 mg(Linked Group 2) 650 mg, Rectal, Every 6 hours PRN, fever, For temp greater than 100.4 F (38 C), Starting on Wed04/28/24 at 0455, Administer if oral route cannot be used. Maximum dose of acetaminophen is 4000 mg from all sources in 24 hours. acetaminophen (Tylenol) tablet 650 mg(Linked Group 2) 650 mg, Oral, Every 6 hours PRN, mild pain (1-3), fever, For temp greater than 100.4 F (38 C), Starting on Wed04/28/24 at 0455, Maximum dose of acetaminophen is 4000 mg from all sources in 24 hours. guaiFENesin-dextromethorphan (Robitussin DM) 100-10 MG/5ML syrup 5 mL 5 mL, Oral, Every 4 hours PRN, cough, Starting on 04/30/24 at 2053 loperamide (Imodium) capsule 2 mg 2 mg, Oral, Every 4 hours PRN, diarrhea, Starting on 04/29/24 at 0705, After each loose stool. Max of 16 mg/day. ondansetron (Zofran) injection 4 mg(Linked Group 3) 4 mg, IntraVENous, Every 6 hours PRN, nausea, vomiting, Starting on Wed04/28/24 at 0455, 1st Line. Give IV if patient is unable to take orally. If inadequate response within 60 minutes, proceed to next-line agent or contact provider if no further options ordered. ondansetron ODT (Zofran-ODT) disintegrating tablet 4 mg(Linked Group 3) 4 mg, Oral, Every 8 hours PRN, nausea, vomiting, Starting on Wed04/28/24 at 0455, 1st Line. If inadequate response within 60 minutes, proceed to next-line agent or contact provider if no further options ordered. Patient should allow tablet to dissolve on tongue. Do not remove from blister pack until just before administering. polyethylene glycol (PEG) 3350 (Miralax) packet 17 g 17 g, Oral, Daily PRN, constipation, Starting on Wed04/28/24 at 0455, 1st line for treatment of constipation - give scheduled if no bowel movement in past 24 hours. 0932 (Given - Provid er: Ying Francisco RN) Linked Groups Order Group 1: predniSONE (Deltasone) tablet 30 mgJump to med 30 mg, Oral, Daily, First dose (after last modification) on Wed05/09/24 at 0900, For 3 doses Followed by predniSONE (Deltasone) tablet 20 mgJump to med 20 mg, Oral, Daily, First dose (after last modification) on Wed05/12/24 at 0900, For 3 doses Followed by predniSONE (Deltasone) tablet 10 mgJump to med 10 mg, Oral, Daily, First dose on Wed05/15/24 at 0900, For 3 doses Group 2: acetaminophen (Tylenol) tablet 650 mgJump to med 650 mg, Oral, Every 6 hours PRN, mild pain (1-3), fever, For temp greater than 100.4 F (38 C), Starting on Wed04/28/24 at 0455, Maximum dose of acetaminophen is 4000 mg from all sources in 24 hours. Or acetaminophen (Tylenol) suppository 650 mgJump to med 650 mg, Rectal, Every 6 hours PRN, fever, For temp greater than 100.4 F (38 C), Starting on Wed04/28/24 at 0455, Administer if oral route cannot be used. Maximum dose of acetaminophen is 4000 mg from all sources in 24 hours. Group 3: ondansetron ODT (Zofran-ODT) disintegrating tablet 4 mgJump to med 4 mg, Oral, Every 8 hours PRN, nausea, vomiting, Starting on Wed04/28/24 at 0455, 1st Line. If inadequate response within 60 minutes, proceed to next-line agent or contact provider if no further options ordered. Patient should allow tablet to dissolve on tongue. Do not remove from blister pack until just before administering. Or ondansetron (Zofran) injection 4 mgJump to med 4 mg, IntraVENous, Every 6 hours PRN, nausea, vomiting, Starting on Wed04/28/24 at 0455, 1st Line. Give IV if patient is unable to take orally. If inadequate response within 60 minutes, proceed to next-line agent or contact provider if no further options ordered. FOR RECORDS PERTAINING TO PATIENTS WHO ARE OR HAVE BEEN ENROLLED IN A CHEMICAL DEPENDENCY/SUBSTANCEABUSE PROGRAM, SOME INFORMATION MAY BE OMITTED. This clinical summary was aggregated from multiple sources. Caution should be exercised in using it in the provision of clinical care. This summary normalizes information from multiple sources, and as a consequence, information in this document may materially change the coding, format and clinical context of patient data. In addition, data may be omitted in some cases. CLINICAL DECISIONS SHOULD BE BASED ON THE PRIMARY CLINICAL RECORDS. [facility]. provides no warranty or guarantee of the accuracy or completeness of information in this document.
[2024-08-25 00:14] LABS: Troponin T High Sens 4 HR 15 ng/L (<=14)
[2024-08-25] MEDS: Metoprolol Tartrate 100 MG Tablet PO ×3 (01:25→21:18)
[2024-08-25] MEDS: APIXABAN 5 MG TABLET PO ×3 (01:58→21:17)
[2024-08-25 05:05] LABS: Absolute Lymphocyte Count 0.75 X10^3/uL (0.83-4.51); Absolute Neutrophil Count 11.1 X10^3/uL (2.0-7.7); Basophil# 0.01 X10^3/uL; Basophil% 0.1 % (0-1); Hematocrit 31.3 % (37-47); Hemoglobin 9.5 g/dL (12.0-15.0); Lymphocyte # 0.75 X10^3/ul (0.83-4.51); Mean Corp Hgb Conc 30.4 g/dL (32-36); Mean Corpuscular Hgb 28.2 pg (27.0-32.0); Mean Corpuscular Volume 92.9 fL (81-99); Mean Platelet Vol. 13.2 fl (6.2-12.0); Monocyte# 0.43 X10^3/uL; Monocyte% 3.5 % (0-10); NRBC Flagged by Analyzer 0 % (0-5); Neutrophil # 11.07 X10^3/uL (2.7-7.7); Neutrophil % 89.1 % (47-70); POSITIVE COUNT YES; Platelet Count 88 K/mm3 (150-450); RBC Distribution Width CV 14.8 % (11.6-14.6); Red Blood Count 3.37 M/mm3 (4.2-5.4); White Blood Count 12.4 K/mm3 (4.4-11.0)
[2024-08-25] MEDS: Ipratropium/Albuterol Sulfate 3 ML AMPUL.NEB INHALATION ×5 (07:04→23:09)
[2024-08-25 07:16] LABS: Magnesium 2.2 mg/dL (1.5-2.2); Phosphorus 4.1 mg/dL (2.7-4.5)
[2024-08-25 07:19] LABS: ALB/GLOB Ratio 1.9 RATIO (0.9-2.4); AST(SGOT) 16 U/L (<=31); Alanine Aminotransfer ALT/SGPT 11 U/L (<=34); Albumin, Serum 4.4 g/dL (3.4-4.8); Alkaline Phosphatase 92 U/L (35-104); Anion Gap 16 (5-15); BUN 20 mg/dL (4-19); BUN/Creat Ratio 26.3 RATIO (10-20); Carbon Dioxide 24.8 mmol/L (21.0-32.0); Chloride 102 mmol/L (98-108); Creatinine, Serum 0.78 mg/dL (0.70-1.20); EST Glomerular Filtration Rate 81 (>60); Estimated Creatinine Clearance 65.27 ml/min (50-250); Globulin 2.4 g/dL (2.2-4.2); Glucose 160 mg/dL (70-99); Potassium 4.9 mmol/L (3.3-5.1); Protein, Total 6.7 g/dL (5.9-8.4); Sodium Level 143 mmol/L (133-145); Total Bilirubin 0.79 mg/dL (0.00-1.30)
--- NOTE | 2024-08-25 07:30 | PN.HOSP_ITS ---
Reason for Visit Reason for Visit: Diagnoses Elevated white blood cell count, unspecified (08/24/24) Unspecified atrial fibrillation (08/24/24) Acute on chronic systolic (congestive) heart failure (08/24/24) Hypoxemia (08/24/24) Abnormal findings on diagnostic imaging of other specified body structures (08/24/24) Subjective Subjective Feeling better. Had been ill for several days prior to arrival. Denies LE edema, weight gain. Objective Data Objective Data Vital Signs: Vital Signs Temp Pulse Resp BP Pulse Ox O2 Del Method O2 Flow Rate 36.7 C 100 18 120/63 94 Nasal Cannula 2 08/25/24 06:00 08/25/24 07:05 08/25/24 07:05 08/25/24 06:00 08/25/24 07:05 08/25/24 07:05 08/25/24 07:05 FiO2 30 08/25/24 05:49 Oxygen Flow Rate (L/min) 2 Oxygen Delivery Method Nasal Cannula Weight: 96.8 kg Body Mass Index (BMI) 43.1 Intake & Output: Intake and Output for Last 24 Hours 08/23/24 08/24/24 08/25/24 23:59 23:59 23:59 Intake Total 53.75 / 53.75 537.16 / 537.16 Output Total 400 / 400 Balance 53.75 / 53.75 137.16 / 137.16 Lab / Micro Data 08/25/24 04:08 08/25/24 04:08 Labs: Laboratory Results - last 24 hr 08/24/24 18:40: WBC 16.4 H, RBC 3.34 L, Hgb 9.3 L, Hct 31.0 L, MCV 92.8, MCH 27.8, MCHC 30.0 L, RDW Std Deviation 51.2 H, RDW Coeff of Gilse 14.9 H, Plt Count 96 L, MPV 12.9 H, Immature Gran % (Auto) 0.900, Neut % (Auto) 61.8, Lymph % (Auto) 9.7 L, [place] % (Auto) 27.2 H, Eos % (Auto) 0.2, Baso % (Auto) 0.2, A bsolute Neuts (auto) 10.1 H, Absolute Lymphs (auto) 1.59, Nucleated RBC % 0, Differential Comment SCANNED, Platelet Estimate MOD DEC, Sodium 143, Potassium 4.7, Chloride 102, Carbon Dioxide 31.5, Anion Gap 10, BUN 19, Creatinine 0.72, Estim Creat Clear Calc 65.67, Est GFR (MDRD) Non-Af 89, BUN/Creatinine Ratio 26.2 H, Glucose 89, Calcium 9.9, Troponin T High Sens 21 H D, NT pro BNP II 5153 H 08/24/24 19:38: Urine Color Yellow, Urine Clarity Clear, Urine pH 5.0, Ur Specific [place] 1.020, Urine Protein 30 H, Urine Glucose (UA) Normal, Urine Ketones Negative, Urine Occult Blood 50 H, Urine Nitrite Negative, Urine Bilirubin Negative, Urine Urobilinogen Normal, Ur Leukocyte Esterase 100 H, Urine RBC 0-5 SEEN, Urine WBC 0-5 SEEN, Ur Squamous Epith Cells 25-50 SEEN, Ur Transition Epith Cell 0-5 SEEN, Uric Acid Crystals 1+, Urine Bacteria 2+, Urine Mucus 0 SEEN 08/24/24 20:40: Troponin T Hi Sens 2 Hr 18 H 08/24/24 23:50: Lactic Acid 1.0, Troponin T Hi Sens 4Hr 15 H 08/25/24 04:08: WBC 12.4 H, RBC 3.37 L, Hgb 9.5 L, Hct 31.3 L, MCV 92.9, MCH 28.2, MCHC 30.4 L, RDW Std Deviation 50.0 H, RDW Coeff of Giles 14.8 H, Plt Count 88 L, MPV 13.2 H, Immature Gran % (Auto) 1.300 H, Neut % (Auto) 89.1 H, Lymph % (Auto) 6.0 L, [place] % (Auto) 3.5, Eos % (Auto) 0.0, Baso % (Auto) 0.1, Absolute Neuts (auto) 11.1 H, Absolute Lymphs (auto) 0.75 L, Nucleated RBC % 0, Sodium 143, Potassium 4.9, Chloride 102, Carbon Dioxide 24.8, Anion Gap 16 H, BUN 20 H, Creatinine 0.78, Estim Creat Clear Calc 65.27, Est GFR (MDRD) Non-Af 81, B UN/Creatinine Ratio 26.3 H, Glucose 160 H, Calcium 10.0, Phosphorus 4.1, Magnesium 2.2, Total Bilirubin 0.79, AST 16, ALT 11, Alkaline Phosphatase 92, Total Protein 6.7, Albumin 4.4, Globulin 2.4, Albumin/Globulin Ratio 1.9 Micro: Microbiology 08/25/24 01:05 Mucosa - Nasopharyngeal Respiratory Panel (PCR) - Final Parainfluenza 4 08/24/24 19:38 Urine, Clean Catch Legionella Antigen - Final 08/24/24 19:38 Urine, Clean Catch Streptococcus pneumoniae Antigen (M - Final Radiography Diagnostic Testing: Radiology Impression Chest X-Ray 08/24/24 19:39 IMPRESSION: Opacification of the right middle lobe, which may reflect pneumonitis/pneumonia. Stable severe cardiomegaly. Reading Location: [id number] Chest CT 08/24/24 23:01 IMPRESSION: IMPRESSION: Coronary artery calcification (CAC) is is present Moderate cardiomegaly. Mild pericardial effusion. Minimal bilateral pleural effusions. Passive atelectatic airspace disease of the lower lobes. Subsegmental atelectasis of the right middle lobe. Associated pneumonic consolidation is considered. Subsegmental atelectasis in the left lower lobe. Associated pneumonic consolidation is considered. Moderate coronary artery calcifications. Moderate interstitial pulmonary congestion. Enlarged main pulmonary artery, probably pulmonary arterial hypertension. Osteopenia. Severe subacute benign osteoporotic compression fracture of T12 vertebral body with mild associated retropulsion and increased dorsal kyphosis. Diffuse spondylosis. Hepatomegaly. Diffuse irregularity of the hepatic contour, probably chronic. Reading Location: [place] [id number] Physical Exam Const alert and no apparent distress HEENT head/scalp atraumatic and moist oral mucous membranes Resp normal respiratory effort, no retractions, no use of accessory muscles and clear to auscultation bilaterally Cardio regular rate, regular rhythm, S1 normal heart sound and S2 normal heart sound GI normal to inspection, nondistended, normoactive bowel sounds, soft to palpation, non-tender and non-distended Extremity normal to inspection Assessment & Plan Assessment/Plan (1) Acute on chronic heart failure with reduced ejection fraction (HFrEF, <= 40%): PLAN: BNP 5153. Pulmonary vascular congestion and pleural effusion on CT chest. on IV furosemide, metoprolol tartrate, lisinopril Echo w EF 40% mild concentric LVH. PASP 52mmHg PLAN: Plan Chronic afib with RVR: metoprolol 100 BID. anticoagulation with apixaban Parainfluenza infection: supportive mgmt. on empiric antibiotics. Chronic conditions: * COPD: BDs * HTN: lisinopril * HLP: atorvastatin * h/o PE: apixaban * CHRISTIANNE: CPAP VTE prophylaxis: not indicated as already anticoagulated. Charges/Coding Visit Charges Inpatient E&M: 77759 Subs Hosp L2
[2024-08-25] MEDS: guaiFENesin 1,200 MG Tablet 1200 MG PO ×2 (08:51→21:18)
[2024-08-25] MEDS: Folic Acid 1 MG Tablet PO (08:51)
[2024-08-25] MEDS: Lisinopril 20 MG Tablet PO (08:52)
[2024-08-25] MEDS: Furosemide 40 MG/4 ML Vial IV ×2 (08:52→17:04)
[2024-08-25] MEDS: Docusate Sodium 100 MG Capsule PO (11:33)
[2024-08-25] MEDS: Ferrous Sulfate 325 MG Tablet PO ×2 (11:33→17:04)
--- NOTE | 2024-08-25 12:45 | CASEMGMT ---
RN?CM?ECOLOGY TEACHER?CM?to room to meet with patient for initial transition planning/care coordination?assessment.?RN?CM?introduced self and role at [facility].? Pt voices understanding and consents to?assessment?at this time.? Pt resting in bed in no distress at this time.? Pt is A/O at this time and answers all questions appropriately.?? Care providers, pharmacy, and demographics verified/updated at this time. Strata: 2 PCP: Dr Ibarra Specialists: Dr Calle, curriculum and instruction specialist in [facility] Pharmacy: María Elena HARO Insurance: [facility] Dual, DEO Prescription Benefit:?yes LNOK: DaughterRhiannon Living Arrangements: Lives w/daughter, RASHI, and 3 grandsons in one-story home w/3 steps to enter. Independent w/ADL's @ baseline & she and dtr usually share home mgnt tasks. However, she has not been feeling well this past week, so her daughter has been assisting more around the house. Transportation:?Pt states drives self and states no transportation concerns at this time.?Dtr also drives and can take her home @ dc. DME: ?States has the following DME:?shower chair, cane, walker, lift chair, nebulizer, pulse ox, O2 through [employer], CPAP. Pt states she just wears the O2 @ 2 l/m PRN and bleeds-in via CPAP @ HS PRN. Call to [facility]. Pt's current O2 orders are 2 L/M continuously and bleed-in via PAP. Pt states she has portable o2 tanks @ home and her dtr can bring in @ dc. She states her portable tanks are the ones w/wheels and she would like the smaller ones she can carry. RN SOLEDAD spoke w/Yumiko who states pt can get the mini tanks after she discharges, that pt should just call them once she is home and request them. Pt made aware and voices appreciation. Pt states she is in the process of getting a hospital bed through her PCP. She is also interested in a new lift chair. Made aware insurance may cover for the mechanical part of it and recommended to talk w/PCP about this as well. Pt states no need for further DME at this time.? HHC/SNF: Pt has been to a SNF in [place] and another SNF but does not remember the name. She has also had [facility] (recently). She would like [facility] again @ [place] and declines wanting list of other HHC options. Order placed for HHC: SN and PT/OT. darian Orta chiropractor assistant to send referral. Pt wishes to return home and states has no concerns with going home at time of discharge.? CM?to follow for any increae in home oxygen needs and any further discharge planning/needs.? Pt voices no further concerns/needs at this time.? Advised pt to ask for?CM?if any further questions/concerns/needs arise.? Voices understanding. PLAN:??Home w/[facility] Follow for any increase in home O2 Wallace BSN?RN?CM
--- NOTE | 2024-08-25 13:44 | CASEMGMT ---
Addendum entered by Marivel Urbano 08/25/24 14:27: [facility] has accepted. BELLA CM aware. Marivel Urbano DC Planning Asst. Original Note: [facility] . Marivel Urbano DC Planning Asst.
[2024-08-25 15:23] LABS: Vitamin D,25 Hydroxy 35.9 ng/mL (30-100)
--- NOTE | 2024-08-25 15:24 | CHAPLAIN ---
Type of Pastoral Visit _x__ Initial Visit ___ Follow-up Visit ___ On-call Visit ___ General Patient Visit ___ Spiritual Assessment ___ Family Conference ___ Bereavement ___ Rapid Response ___ Code Blue ___ Other (describe below) Pastoral Care Referral From _x__ Patient ___ Family ___ Nurse ___ Physician ___ Health Equipment Servicer ___ Investigator Fraud ___ Other (describe below) Sacrament/Intervention _x__ Active listening ___ Anointing ___ Muslim ___ Bereavement ___ Communion ___ Kylie exploration ___ _x__ Life review _x__ Prayer ___ Reconciliation ___ Sacrament of Sick ___ Supportive presence ___ Wedding ___ Other (describe below) Pastoral Comments patient speaks of her need for rest; pt states that she has family help because she lives with her daughter and family; pt says that this health issue has been something going on for her lifetime but that it is different now; pt says that the best thing she needs right now is prayer; pt is connected to a local religion for extra support too
[2024-08-25] MEDS: Methylprednisolone Sod Succ 40 MG/ML VIAL IV (20:54)
[2024-08-25] MEDS: 0.9% Saline Lock 10 ML Syringe IV (20:54)
[2024-08-25] MEDS: Ceftriaxone 2 GM in 0.9% Normal Saline (50mL MB+) 50 ML IV (21:06)
[2024-08-25] MEDS: Atorvastatin Calcium 10 MG Tablet PO (21:17)
[2024-08-25] MEDS: Sertraline 50 MG Tablet PO (21:18)
[2024-08-25] MEDS: Azithromycin 500 MG in 0.9% Normal Saline (250mL Bag) 250 ML 255 MG IV (22:38)
[2024-08-26] VITALS (19 sets, daily range): BP systolic 116–140; BP diastolic 57–84; PULSE 87–130; RESP 16–20; TEMP 36.4–36.6; O2SAT 93–99; BMI 43.1
[2024-08-26] MEDS: 0.9% Saline Lock 10 ML Syringe IV ×3 (01:00→20:50)
[2024-08-26] MEDS: Digoxin 250 MCG/ML Ampul 500 MCG IV (01:04)
[2024-08-26 05:17] LABS: Absolute Lymphocyte Count 0.66 X10^3/uL (0.83-4.51); Absolute Neutrophil Count 9.1 X10^3/uL (2.0-7.7); Basophil# 0.02 X10^3/uL; Basophil% 0.2 % (0-1); Hematocrit 28.5 % (37-47); Hemoglobin 8.7 g/dL (12.0-15.0); Lymphocyte # 0.66 X10^3/ul (0.83-4.51); Lymphocyte % 6.1 % (19-41); Mean Corp Hgb Conc 30.5 g/dL (32-36); Mean Corpuscular Hgb 28.2 pg (27.0-32.0); Mean Corpuscular Volume 92.5 fL (81-99); Mean Platelet Vol. 12.9 fl (6.2-12.0); Monocyte# 0.88 X10^3/uL; Monocyte% 8.1 % (0-10); NRBC Flagged by Analyzer 0 % (0-5); Neutrophil # 9.08 X10^3/uL (2.7-7.7); Neutrophil % 83.6 % (47-70); POSITIVE COUNT YES; Platelet Count 88 K/mm3 (150-450); RBC Distribution Width CV 14.7 % (11.6-14.6); RBC Distribution Width SD 49.5 fl (35.1-43.9); Red Blood Count 3.08 M/mm3 (4.2-5.4); White Blood Count 10.9 K/mm3 (4.4-11.0)
[2024-08-26] MEDS: Methylprednisolone Sod Succ 40 MG/ML VIAL IV ×3 (05:51→20:50)
[2024-08-26 06:08] LABS: Anion Gap 9 (5-15); BUN 31 mg/dL (4-19); BUN/Creat Ratio 36.3 RATIO (10-20); Calcium,Total 10.2 mg/dL (7.6-11.0); Carbon Dioxide 31.6 mmol/L (21.0-32.0); Chloride 101 mmol/L (98-108); Creatinine, Serum 0.84 mg/dL (0.70-1.20); EST Glomerular Filtration Rate 73 (>60); Estimated Creatinine Clearance 62.17 ml/min (50-250); Glucose 139 mg/dL (70-99); Potassium 4.9 mmol/L (3.3-5.1); Sodium Level 142 mmol/L (133-145)
[2024-08-26] MEDS: Ipratropium/Albuterol Sulfate 3 ML AMPUL.NEB INHALATION ×5 (07:41→23:59)
[2024-08-26] MEDS: Lisinopril 20 MG Tablet PO (08:34)
[2024-08-26] MEDS: Docusate Sodium 100 MG Capsule PO (08:34)
[2024-08-26] MEDS: APIXABAN 5 MG TABLET PO ×2 (08:34→20:50)
[2024-08-26] MEDS: Metoprolol Tartrate 100 MG Tablet PO ×2 (08:34→20:49)
[2024-08-26] MEDS: Folic Acid 1 MG Tablet PO (08:34)
[2024-08-26] MEDS: Furosemide 40 MG/4 ML Vial IV ×2 (08:35→17:05)
[2024-08-26] MEDS: guaiFENesin 1,200 MG Tablet 1200 MG PO ×2 (08:45→20:50)
--- NOTE | 2024-08-26 11:57 | PN.HOSP_ITS ---
Subjective Subjective feels like she is breathing a little bit better. She says that she does not normally wear oxygen at home for the last 6 months though she did wear 2 L chronically for 5 or 6 years prior Objective Data Objective Data Vital Signs: Vital Signs Temp Pulse Resp BP Pulse Ox O2 Del Method O2 Flow Rate 97.9 F 120 H 18 140/84 H 99 Nasal Cannula 2 08/26/24 08:27 08/26/24 08:34 08/26/24 08:27 08/26/24 08:27 08/26/24 08:27 08/26/24 08:27 08/26/24 08:27 FiO2 25 08/26/24 05:50 Oxygen Flow Rate (L/min) 2 Oxygen Delivery Method Nasal Cannula Weight: 213 lb 6.519 oz Body Mass Index (BMI) 43.1 Intake & Output: Intake and Output for Last 24 Hours 08/25/24 08/26/24 08/27/24 03:59 03:59 03:59 Intake Total 350.91 / 350.91 945 / 945 Output Total 1425 / 1425 300 / 300 Balance 350.91 / 350.91 -480 / -480 -300 / -300 Lab / Micro Data 08/26/24 04:34 08/26/24 04:34 Labs: Laboratory Results - last 24 hr 08/25/24 04:08: Vitamin D 25-Hydroxy 35.9 08/26/24 04:34: WBC 10.9, RBC 3.08 L, Hgb 8.7 L, Hct 28.5 L, MCV 92.5, MCH 28.2, MCHC 30.5 L, RDW Std Deviation 49.5 H, RDW Coeff of Giles 14.7 H, Plt Count 88 L, MPV 12.9 H, Immature Gran % (Auto) 2.000 H, Neut % (Auto) 83.6 H, Lymph % (Auto) 6.1 L, [place] % (Auto) 8.1, Eos % (Auto) 0.0, Baso % (Auto) 0.2, Absolute Neuts (auto) 9.1 H, Absolute Lymphs (auto) 0.66 L, Nucleated RBC % 0, Sodium 142, Potassium 4.9, Chloride 101, Carbon Dioxide 31.6, Anion Gap 9, BUN 31 H, Creatinine 0.84, Estim Creat Clear Calc 62.17, Est GFR (MDRD) Non-Af 73, B UN/Creatinine Ratio 36.3 H, Glucose 139 H, Calcium 10.2 Micro: Microbiology 08/25/24 01:05 Mucosa - Nasopharyngeal Respiratory Panel (PCR) - Final Parainfluenza 4 08/24/24 19:38 Urine, Clean Catch Legionella Antigen - Final 08/24/24 19:38 Urine, Clean Catch Streptococcus pneumoniae Antigen (M - Final Physical Exam Narrative General: Alert, Oriented x3, Cooperative, No apparent distress HEENT: Atraumatic, PERRLA, EOMI, Normocephalic Oral: Moist Mucosa Neck: Supple, No JVD Lungs: Tachycardic, Normal air movement, scattered rhonchi, No wheeze, No rales Cardiovascular: Regular rate, Regular Rhythm, Normal S1, Normal S2, No murmurs Abdomen: Soft, Non Tender, Non-Distended, No Hepato-splenomegaly Extremities: Edema, Capillary Refill Less than 3 Seconds Skin: No rashes, No breakdown Musculoskeletal: No Tenderness to Palpation of Joints or Extremities Neurological: No focal neurological deficits, Motor Exam 5/5 strength throughout, Sensory exam intact to light touch and pain Psych/Mental Status: Normal Affect, Appropriate Assessment & Plan Assessment/Plan (1) Acute on chronic heart failure with reduced ejection fraction (HFrEF, <= 40%): PLAN: Plan 1. Acute hypoxic respiratory insufficiency secondary to acute on chronic systolic CHF complicated by chronic A-fib with RVR in the setting of a parainfluenza infection/essential HTN/HLD ? She is on empiric antibiotics however she does have a viral illness so these can be discontinued in the next 48 hours if she continues to improve, depending on culture data ? Continue with Lasix, her BNP was elevated to 5153 ? She had an echo with an EF of 40% and mild consistent with LVH with a PASP of 52 mmHg ? Will continue with her home blood pressure medications as well as her anticoagulation on Eliquis for both her history of PE and her A-fib ? Continue with Lipitor ? Will continue with steroids for her viral infection, continue symptomatic management 2. COPD ? Not in exacerbation ? Continue with her home inhalers 3. CHRISTIANNE ? Stable ? Continue with CPAP DVT: Eliquis Charges/Coding Visit Charges Inpatient E&M: 25608 Subs Hosp L2
[2024-08-26] MEDS: Ferrous Sulfate 325 MG Tablet PO ×2 (13:21→17:05)
[2024-08-26 17:15] LABS: Magnesium 2.2 mg/dL (1.5-2.2)
[2024-08-26] MEDS: Atorvastatin Calcium 10 MG Tablet PO (20:49)
[2024-08-26] MEDS: Ceftriaxone 2 GM in 0.9% Normal Saline (50mL MB+) 50 ML IV (20:49)
[2024-08-26] MEDS: Sertraline 50 MG Tablet PO (20:50)
[2024-08-26] MEDS: Azithromycin 500 MG in 0.9% Normal Saline (250mL Bag) 250 ML 255 MG IV (21:40)
[2024-08-27] VITALS (13 sets, daily range): BP systolic 116–135; BP diastolic 48–89; PULSE 91–105; RESP 18–22; TEMP 36–36.6; O2SAT 94–98; BMI 43.0
[2024-08-27] MEDS: Ipratropium/Albuterol Sulfate 3 ML AMPUL.NEB INHALATION ×5 (03:29→23:14)
[2024-08-27] MEDS: Methylprednisolone Sod Succ 40 MG/ML VIAL IV ×3 (05:16→21:34)
[2024-08-27] MEDS: 0.9% Saline Lock 10 ML Syringe IV (05:17)
[2024-08-27 06:17] LABS: Absolute Lymphocyte Count 0.67 X10^3/uL (0.83-4.51); Absolute Neutrophil Count 9.2 X10^3/uL (2.0-7.7); Basophil# 0.01 X10^3/uL; Basophil% 0.1 % (0-1); Hematocrit 28.1 % (37-47); Hemoglobin 8.6 g/dL (12.0-15.0); Lymphocyte # 0.67 X10^3/ul (0.83-4.51); Lymphocyte % 5.7 % (19-41); Mean Corp Hgb Conc 30.6 g/dL (32-36); Mean Corpuscular Hgb 28.1 pg (27.0-32.0); Mean Corpuscular Volume 91.8 fL (81-99); Monocyte# 1.59 X10^3/uL; Monocyte% 13.6 % (0-10); NRBC Flagged by Analyzer 0 % (0-5); Neutrophil # 9.19 X10^3/uL (2.7-7.7); Neutrophil % 78.5 % (47-70); POSITIVE COUNT YES; POSITIVE DIFFERENTIAL YES; Platelet Count 90 K/mm3 (150-450); RBC Distribution Width CV 14.6 % (11.6-14.6); RBC Distribution Width SD 48.3 fl (35.1-43.9); Red Blood Count 3.06 M/mm3 (4.2-5.4); White Blood Count 11.7 K/mm3 (4.4-11.0)
[2024-08-27 06:54] LABS: Differential Indicated SCAN CRITERIA MET
[2024-08-27 06:56] LABS: Differential Comment SCANNED
[2024-08-27 07:07] LABS: Anion Gap 10 (5-15); BUN 29 mg/dL (4-19); BUN/Creat Ratio 39.8 RATIO (10-20); Calcium,Total 10.1 mg/dL (7.6-11.0); Carbon Dioxide 31.8 mmol/L (21.0-32.0); Chloride 100 mmol/L (98-108); Creatinine, Serum 0.72 mg/dL (0.70-1.20); EST Glomerular Filtration Rate 88 (>60); Glucose 142 mg/dL (70-99); Potassium 4.5 mmol/L (3.3-5.1); Sodium Level 142 mmol/L (133-145)
[2024-08-27] MEDS: Metoprolol Tartrate 100 MG Tablet PO ×2 (09:30→21:34)
[2024-08-27] MEDS: Folic Acid 1 MG Tablet PO (09:46)
[2024-08-27] MEDS: Furosemide 40 MG/4 ML Vial IV ×2 (09:46→17:43)
[2024-08-27] MEDS: APIXABAN 5 MG TABLET PO ×2 (10:45→21:34)
[2024-08-27] MEDS: guaiFENesin 1,200 MG Tablet 1200 MG PO ×2 (10:45→21:34)
[2024-08-27] MEDS: Ferrous Sulfate 325 MG Tablet PO ×2 (13:48→17:41)
--- NOTE | 2024-08-27 14:26 | CPS ---
Daughter is bringing pt's CPAP machine before HS.
--- NOTE | 2024-08-27 14:56 | PN.HOSP_ITS ---
Subjective Subjective Doing well, did not get any sleep overnight because of the significant coughing. Objective Data Objective Data Vital Signs: Vital Signs Temp Pulse Resp BP Pulse Ox O2 Del Method O2 Flow Rate 97.6 F L 94 22 H 133/53 H 97 Nasal Cannula 2 08/27/24 13:54 08/27/24 14:23 08/27/24 14:23 08/27/24 13:54 08/27/24 13:54 08/27/24 13:54 08/27/24 13:54 FiO2 25 08/26/24 05:50 Oxygen Flow Rate (L/min) 2 Oxygen Delivery Method Nasal Cannula Weight: 212 lb 15.465 oz Body Mass Index (BMI) 43.0 Intake & Output: Intake and Output for Last 24 Hours 08/26/24 08/27/24 08/28/24 03:59 03:59 03:59 Intake Total 945 / 945 1025 / 1025 240 / 240 Output Total 1425 / 1425 2050 / 2050 1300 / 1300 Balance -480 / -480 -1025 / -1025 -1060 / -1060 Lab / Micro Data 08/27/24 05:53 08/27/24 05:53 Labs: Laboratory Results - last 24 hr 08/26/24 04:34: Magnesium 2.2 08/27/24 05:53: WBC 11.7 H, RBC 3.06 L, Hgb 8.6 L, Hct 28.1 L, MCV 91.8, MCH 28.1, MCHC 30.6 L, RDW Std Deviation 48.3 H, RDW Coeff of Giles 14.6, Plt Count 90 L, MPV 13.0 H, Immature Gran % (Auto) 2.100 H, Neut % (Auto) 78.5 H, Lymph % (Auto) 5.7 L, [place] % (Auto) 13.6 H, Eos % (Auto) 0.0, Baso % (Auto) 0.1, A bsolute Neuts (auto) 9.2 H, Absolute Lymphs (auto) 0.67 L, Nucleated RBC % 0, Differential Comment SCANNED, Sodium 142, Potassium 4.5, Chloride 100, Carbon Dioxide 31.8, Anion Gap 10, BUN 29 H, Creatinine 0.72, Estim Creat Clear Calc 65.20, Est GFR (MDRD) Non-Af 88, BUN/Creatinine Ratio 39.8 H, Glucose 142 H, Calcium 10.1 Micro: Microbiology 08/26/24 21:00 Mucosa - Nose SARS-CoV-2, Influenza & RSV (PCR) - Final 08/25/24 01:05 Mucosa - Nasopharyngeal Respiratory Panel (PCR) - Final Parainfluenza 4 08/24/24 19:38 Urine, Clean Catch Legionella Antigen - Final 08/24/24 19:38 Urine, Clean Catch Streptococcus pneumoniae Antigen (M - Final Physical Exam Narrative General: Alert, Oriented x3, Cooperative, No apparent distress HEENT: Atraumatic, PERRLA, EOMI, Normocephalic Oral: Moist Mucosa Neck: Supple, No JVD Lungs: Diminished, Normal air movement, scattered rhonchi, No wheeze, No rales Cardiovascular: Regular rate, Regular Rhythm, Normal S1, Normal S2, No murmurs Abdomen: Soft, Non Tender, Non-Distended, No Hepato-splenomegaly Extremities: Edema, Capillary Refill Less than 3 Seconds Skin: No rashes, No breakdown Musculoskeletal: No Tenderness to Palpation of Joints or Extremities Neurological: No focal neurological deficits, Motor Exam 5/5 strength throughout, Sensory exam intact to light touch and pain Psych/Mental Status: Normal Affect, Appropriate Assessment & Plan Assessment/Plan (1) Acute on chronic heart failure with reduced ejection fraction (HFrEF, <= 40%): PLAN: Plan 1. Acute hypoxic respiratory insufficiency secondary to acute on chronic systolic CHF complicated by chronic A-fib with RVR in the setting of a parainfluenza infection/essential HTN/HLD ? She is on empiric antibiotics however she does have a viral illness so these can be discontinued in the next 48 hours if she continues to improve, depending on culture data ? Continue with Lasix, her BNP was elevated to 5153 ? She had an echo with an EF of 40% and mild consistent with LVH with a PASP of 52 mmHg ? Will continue with her home blood pressure medications as well as her anticoagulation on Eliquis for both her history of PE and her A-fib ? Continue with Lipitor ? Will continue with steroids for her viral infection, continue symptomatic management 2. COPD ? Not in exacerbation ? Continue with her home inhalers 3. CHRISTIANNE ? Stable ? Continue with CPAP 4. Anxiety/depression ? Stable ? Continue with Zoloft 5. Iron deficiency anemia ? Stable ? Continue with iron replacement DVT: Eliquis Charges/Coding Visit Charges Inpatient E&M: 13160 Subs Hosp L2
[2024-08-27] MEDS: Ensure Plus High Protein 120 ML LIQUID PO (17:41)
[2024-08-27] MEDS: Sertraline 50 MG Tablet PO (21:34)
[2024-08-27] MEDS: Atorvastatin Calcium 10 MG Tablet PO (21:34)
[2024-08-27] MEDS: Ceftriaxone 2 GM in 0.9% Normal Saline (50mL MB+) 50 ML IV (21:34)
[2024-08-27] MEDS: Azithromycin 500 MG in 0.9% Normal Saline (250mL Bag) 250 ML 255 MG IV (23:29)
[2024-08-28] VITALS (7 sets, daily range): BP systolic 106–131; BP diastolic 50–76; PULSE 84–107; RESP 16–18; TEMP 36.2–37.2; O2SAT 91–96; BMI 42.2
[2024-08-28] MEDS: Methylprednisolone Sod Succ 40 MG/ML VIAL IV ×2 (05:04→14:25)
[2024-08-28] MEDS: 0.9% Saline Lock 10 ML Syringe IV (05:04)
[2024-08-28 06:04] LABS: Absolute Lymphocyte Count 0.69 X10^3/uL (0.83-4.51); Absolute Neutrophil Count 9.3 X10^3/uL (2.0-7.7); Basophil# 0.02 X10^3/uL; Basophil% 0.2 % (0-1); Hematocrit 28.9 % (37-47); Hemoglobin 8.7 g/dL (12.0-15.0); Lymphocyte # 0.69 X10^3/ul (0.83-4.51); Lymphocyte % 5.9 % (19-41); Mean Corp Hgb Conc 30.1 g/dL (32-36); Mean Corpuscular Hgb 27.6 pg (27.0-32.0); Mean Corpuscular Volume 91.7 fL (81-99); Monocyte# 1.26 X10^3/uL; Monocyte% 10.8 % (0-10); NRBC Flagged by Analyzer 0 % (0-5); Neutrophil # 9.28 X10^3/uL (2.7-7.7); Neutrophil % 79.3 % (47-70); POSITIVE COUNT YES; Platelet Count 94 K/mm3 (150-450); RBC Distribution Width CV 14.6 % (11.6-14.6); RBC Distribution Width SD 48.2 fl (35.1-43.9); Red Blood Count 3.15 M/mm3 (4.2-5.4); White Blood Count 11.7 K/mm3 (4.4-11.0)
[2024-08-28 06:29] LABS: Anion Gap 9 (5-15); BUN 27 mg/dL (4-19); BUN/Creat Ratio 37.9 RATIO (10-20); Calcium,Total 10.1 mg/dL (7.6-11.0); Carbon Dioxide 37.3 mmol/L (21.0-32.0); Chloride 99 mmol/L (98-108); Creatinine, Serum 0.71 mg/dL (0.70-1.20); EST Glomerular Filtration Rate 90 (>60); Estimated Creatinine Clearance 64.48 ml/min (50-250); Glucose 141 mg/dL (70-99); Potassium 4.2 mmol/L (3.3-5.1); Sodium Level 145 mmol/L (133-145)
[2024-08-28] MEDS: Ipratropium/Albuterol Sulfate 3 ML AMPUL.NEB INHALATION (07:24)
[2024-08-28] MEDS: Folic Acid 1 MG Tablet PO (08:34)
[2024-08-28] MEDS: Ensure Plus High Protein 120 ML LIQUID PO (08:34)
[2024-08-28] MEDS: APIXABAN 5 MG TABLET PO (08:35)
[2024-08-28] MEDS: guaiFENesin 1,200 MG Tablet 1200 MG PO (08:35)
[2024-08-28] MEDS: Lisinopril 20 MG Tablet PO (08:35)
[2024-08-28] MEDS: Metoprolol Tartrate 100 MG Tablet PO (08:35)
[2024-08-28] MEDS: Furosemide 40 MG/4 ML Vial IV (08:35)
--- NOTE | 2024-08-28 10:02 | PCM.DC ---
Discharge Instructions Diet Discharge Diet: Low fat / Low cholesterol DC O2, CPAP, BIPAP needs Home O2 Discharge instructions: No Dressing / Incision Discharge Activity: Return to Normal Activity Dressing / Incision Call your doctor if you observe: Fever of 101 or Higher, Shortness of breath, Dizziness, Fainting spells, Swelling in the ankles, Chest pain and Increased palpitations (irregular heartbeat) Follow Up Care Test Results: Test results from this visit will be discussed in further detail at your follow-up appointment, if applicable. Discharge Plan Admission Admit Date/Time: 08/24/24 23:03 Attending Provider: Jimbo Ibarra Primary Care Provider: Kory Ibarra Consulting Providers: Jemima Poe; John Paul Will Instructions Additional Instructions / Restrictions: Follow-up with your PCP to clarify the medications which were supposed to be taking as you have had a couple of duplications when we were doing our medication reconciliation on admission and discharge Discharge Orders/Prescriptions Prescriptions: New prednisone 10 mg tablet 10 mg PO DAILY Qty: 20 0RF Rx Instructions: 3 tablets daily for 3 days then 2 tablets daily for 3 days then 1 tablet daily for 3 days then half tablet daily for 4 days cefdinir 300 mg capsule 300 mg PO BID 3 Days Qty: 6 0RF Continued folic acid 1 mg tablet 1 mg PO DAILY furosemide 40 MG tablet 40 mg PO BID Patient Comments: Water pill sertraline 50 mg tablet 50 mg PO QHS Patient Comments: Anti-depressant/anxiety atorvastatin 10 MG tablet 10 mg PO QHS Patient Comments: CHOLESTEROL Eliquis 5 mg tablet 5 mg PO BID guaifenesin [Mucus Relief ER] 1,200 mg Tablet Extended Release 12hr 1,200 mg PO BID Qty: 10 0RF albuterol sulfate 0.63 mg/3 mL solution for nebulization 0.63 mg inhalation Q4H PRN (Reason: shortness of breath or wheezing) Qty: 75 0RF docusate sodium [Col-Rite] 100 mg capsule 100 mg PO BID PRN (Reason: constipation) diltiazem HCl 60 mg Tablet 60 mg PO Q8 Qty: 120 0RF metoprolol tartrate 25 mg Tablet 75 mg PO BID Qty: 180 0RF tiotropium bromide [Spiriva with HandiHaler] 18 mcg capsule, w/inhalation device 1 cap inhalation DAILY Qty: 30 0RF Rx Instructions: puncture 1 cap using device; one dose = 2 inhalations albuterol sulfate 90 mcg/actuation HFA aerosol inhaler 1 inh inhalation Q6H Qty: 6.7 0RF ipratropium-albuterol 0.5 mg-3 mg(2.5 mg base)/3 mL solution for nebulization 3 ml inhalation lisinopril 20 mg tablet 20 mg PO DAILY ondansetron HCl 4 mg tablet 4 mg PO Q12H PRN PRN (Reason: nausea/vomiting) potassium chloride 20 mEq tablet,ER particles/crystals 20 meq PO DAILY calcitonin (salmon) 200 unit/actuation spray,non-aerosol 1 spray DAILY risedronate 35 mg tablet PO potassium chloride 10 mEq tablet,ER particles/crystals 10 meq PO BID ferrous sulfate 324 mg (65 mg iron) tablet,delayed release (DR/EC) 324 mg PO BID Dulera 100-5 mcg/actuation HFA aerosol inhaler inhalation Spiriva Respimat 2.5 mcg/actuation mist 2 puff INHALATION DAILY Discontinued lisinopril 10 MG tablet 20 mg PO DAILY Patient Comments: BLOOD PRESSURE/HEART azithromycin 250 mg tablet PO metoprolol tartrate 100 mg tablet 200 mg PO Referrals / Follow Up: Kory Ibarra DO [Primary Care Provider] - Within 1 Week Disposition Disposition (needs filled in before D/C Order can be placed): Home, Self Care
[2024-08-28] MEDS: Ferrous Sulfate 325 MG Tablet PO (11:18)
--- NOTE | 2024-08-28 11:40 | CASEMGMT ---
Discharge Planning Discharge Instructions sent to Ria OTTO. Marivel Urbano DC Planning Asst.
--- NOTE | 2024-08-28 11:41 | CASEMGMT ---
Patient has order for discharge. BELLA ROWE in to discuss needs at discharge. Patient states daughter will bring oxygen tank from home for at discharge. Patient is aware to call [facility] to have additional tanks delivered. BELLA ROWE updated patient that HHC has been resumed with [facility]. Patient denies further needs or help at discharge. Patient had no furhter questions or concerns. BELLA ROWE update DC planning assitant to send discharge information to [facility]. BELLA ROWE updated disharge plan.
--- NOTE | 2024-08-28 12:41 | DS.PCM_ITS ---
Providers Date of Admission: 08/24/24 Primary Care Physician: Dr. Kory Ibarra DO Reason For Visit: ACUTE HYPOXIC RESPIRATORY FAILURE 2/2 RLL PNA Diagnosis Discharge Diagnosis (1) Acute on chronic heart failure with reduced ejection fraction (HFrEF, <= 40%): Status: Chronic Code(s): I50.23 - Acute on chronic systolic (congestive) heart failure Medications at Discharge Home Medications furosemide 40 mg tablet 40 mg PO BID diuretic 10/27/13 atorvastatin 10 mg tablet 10 mg PO QHS cholesterol 07/14/16 apixaban 5 mg tablet (Eliquis) 5 mg PO BID blood thinner 01/18/22 albuterol sulfate 0.63 mg/3 mL solution for nebulization 0.63 mg (3 mL) inhalation Q4H PRN shortness of breath or wheezing #75 mL 01/22/22 guaifenesin 1,200 mg tablet, extended release 12 hr (Mucus Relief ER) 1,200 mg PO BID cough #10 tabs 01/22/22 folic acid 1 mg tablet 1 mg PO DAILY see PCP 05/25/24 sertraline 50 mg tablet 50 mg PO QHS mental health 05/25/24 docusate sodium 100 mg capsule (Col-Rite) 100 mg PO BID PRN constipation 06/03/24 albuterol sulfate 90 mcg/actuation aerosol inhaler 1 inh inhalation Q6H #6.7 grams 06/05/24 diltiazem HCl 60 mg tablet 60 mg PO Q8 #120 tabs 06/05/24 metoprolol tartrate 25 mg tablet 75 mg (3 x 25 mg) PO BID #180 tabs 06/05/24 tiotropium bromide 18 mcg capsule with inhalation device (Spiriva with HandiHaler) 1 cap inhalation DAILY #30 inhalations 06/05/24 calcitonin (salmon) 200 unit/actuation nasal spray 1 spray DAILY 08/24/24 ferrous sulfate 324 mg (65 mg iron) tablet,delayed release 324 mg PO BID 08/24/24 ipratropium 0.5 mg-albuterol 3 mg (2.5 mg base)/3 mL nebulization soln 3 ml inhalation 08/24/24 lisinopril 20 mg tablet 20 mg PO DAILY 08/24/24 mometasone-formoterol HFA 100 mcg-5 mcg/actuation aerosol inhaler (Dulera) inhalation 08/24/24 ondansetron HCl 4 mg tablet 4 mg PO Q12H PRN PRN nausea/vomiting 08/24/24 potassium chloride 10 mEq tablet,extended release(part/cryst) 10 meq PO BID 08/24/24 potassium chloride 20 mEq tablet,extended release(part/cryst) 20 meq PO DAILY 08/24/24 risedronate 35 mg tablet mg PO 08/24/24 tiotropium bromide 2.5 mcg/actuation mist for inhalation (Spiriva Respimat) 2 puff inhalation DAILY 08/24/24 cefdinir 300 mg capsule 300 mg PO BID 3 days #6 caps 08/28/24 prednisone 10 mg tablet 10 mg PO DAILY #20 tabs 08/28/24 Hospital Course Operations None Procedures None Summary of Care Provided Minutes Spent on Discharge: 31 Hospital Course: Per HPI: FABRICIO CARDOZO, is a 85 M who presented to [facility] [place] ED on 08/22/24 with worsening shortness of breath with exertion. Patient has history of COPD, follows with Mary Escobedo. Is on home nocturnal oxygen through CPAP but has never been on oxygen during the day. He and his take care of their grandson frequently. They note that he was sick about 2 weeks ago without respiratory symptoms and then both he and his developed the same symptoms about 4 to 5 days later. They were both placed on doxycycline and he was started on a steroid. His improved well but he did not seem to improve much. He has a nebulizer machine at home and was taking albuterol 3 times daily for the past several days but states he has continued to have significant shortness of breath with exertion. Initially had a cough with greenish sputum production but the mucus has loosened and he now is producing primarily clearish sputum. He denies any fevers or chills throughout that time. On arrival to the ED today he was satting in the low 90s on room air at rest. He was hypertensive to the 190s to 200s systolic. Otherwise was afebrile and in normal sinus rhythm. Labs notable for WBC count 24,000, though notably he was recently on steroids. Troponin trend 129 > 111. COVID/flu/RSV negative. Chest x-ray showed prominent chronic lung changes with moderate hyperinflation but no evidence of pulmonary edema or other findings concerning for pneumonia. D-dimer was negative. He was given a DuoNeb treatment and started on IV steroids and antibiotics, and hospitalist was contacted for admission. I saw the patient at bedside in the ED, was present. Patient was sitting up comfortably at the edge of the bed and had no increased work of breathing on 2 L nasal cannula at rest. He did report little improvement in his shortness of breath with exertion especially with treatments recently and this has been frustrating for him. He otherwise denies any other acute concerns at this time. Hospital Course: 1. Acute hypoxic respiratory sufficiency secondary to acute on chronic systolic CHF complicated by chronic A-fib with RVR in the setting of a parainfluenza infection/essential HTN/HLD?74-year-old female presented to the hospital with increasing shortness of breath and oxygen requirement. She states that she used to require 2 L nasal cannula continuously about 6 months ago but then since then has not really been using it. Amatory pulse ox today does demonstrate need for 2 L both at rest and with activity. Echocardiogram demonstrates an EF of 40% with mild LVH and a PASP of 52 mmHg consistent with moderate pulmonary hypertension. She is already on 40 mg of Lasix p.o. twice daily and she did have good diuresis with IV dosing. She was also found to have parainfluenza infection complicating her respiratory status and she was started on steroids and antibiotics. Unfortunately we were not able to obtain a sputum sample to definitively rule out a bacterial pneumonia therefore we will complete 3 more days of cefdinir 300 mg p.o. twice daily on discharge. I discussed with her the plan for discharge today she expressed understanding of the risks and benefits of going home and would like to go home today. 2. Chronic COPD, obstructive sleep apnea, anxiety, depression, iron deficiency anemia are all chronic medical conditions which complicate her care. Her home medications were continued where appropriate Physical Exam Narrative General: Alert, Oriented x3, Cooperative, No apparent distress HEENT: Atraumatic, PERRLA, EOMI, Normocephalic Oral: Moist Mucosa Neck: Supple, No JVD Lungs: Diminished, Normal air movement, no rhonchi, No wheeze, No rales Cardiovascular: Regular rate, Regular Rhythm, Normal S1, Normal S2, No murmurs Abdomen: Soft, Non Tender, Non-Distended, No Hepato-splenomegaly Extremities: Edema, Capillary Refill Less than 3 Seconds Skin: No rashes, No breakdown Musculoskeletal: No Tenderness to Palpation of Joints or Extremities Neurological: No focal neurological deficits, Motor Exam 5/5 strength throughout, Sensory exam intact to light touch and pain Psych/Mental Status: Normal Affect, Appropriate Weight / BMI Weight Weight: 208 lb 15.971 oz Body Mass Index (BMI) 42.2 ABG / Lab / Microbiology Data 08/28/24 04:40 08/28/24 04:40 Laboratory: Laboratory Results - last 24 hr 08/28/24 04:40: WBC 11.7 H, RBC 3.15 L, Hgb 8.7 L, Hct 28.9 L, MCV 91.7, MCH 27.6, MCHC 30.1 L, RDW Std Deviation 48.2 H, RDW Coeff of Giles 14.6, Plt Count 94 L, MPV 13.0 H, Immature Gran % (Auto) 3.800 H, Neut % (Auto) 79.3 H, Lymph % (Auto) 5.9 L, [place] % (Auto) 10.8 H, Eos % (Auto) 0.0, Baso % (Auto) 0.2, A bsolute Neuts (auto) 9.3 H, Absolute Lymphs (auto) 0.69 L, Nucleated RBC % 0, Sodium 145, Potassium 4.2, Chloride 99, Carbon Dioxide 37.3 H, Anion Gap 9, BUN 27 H, Creatinine 0.71, Estim Creat Clear Calc 64.48, Est GFR (MDRD) Non-Af 90, B UN/Creatinine Ratio 37.9 H, Glucose 141 H, Calcium 10.1 Microbiology: Microbiology 08/26/24 21:00 Mucosa - Nose SARS-CoV-2, Influenza & RSV (PCR) - Final 08/25/24 01:05 Mucosa - Nasopharyngeal Respiratory Panel (PCR) - Final Parainfluenza 4 08/24/24 19:38 Urine, Clean Catch Legionella Antigen - Final 08/24/24 19:38 Urine, Clean Catch Streptococcus pneumoniae Antigen (M - Final D/C Instructions Discharge Diet: Low fat / Low cholesterol Call your doctor if you observe: Fever of 101 or Higher, Shortness of breath, Dizziness, Fainting spells, Swelling in the ankles, Chest pain and Increased palpitations (irregular heartbeat) DC O2, CPAP, BIPAP Needs Home O2 Discharge instructions: No Meaningful Use Info Meaningful Use Meaningful Use Diagnoses (Choose all that apply): None applicable Ischemic Stroke Statin Dosing Therapy Reference: STATIN DOSE THERAPY REFERENCE: * Patients > 75 years receive moderate or high dose statin therapy. * Patients 75 years or YOUNGER should receive HIGH intensity statin dose unless contraindicated. You will be required to document reason for non-treatment if statin daily dose does not meet guidelines. HIGH DOSE STATIN THERAPY DAILY Atorvastatin > than or = to 40 mg Rosuvastatin > than or = to 20 mg Amlodipine + Atorvastatin > than or = to 2.5/40 mg Ezetimibe + Simvastatin 10/80 mg Simvastatin 80mg Discharge Plan Admission Admit Date/Time: 08/24/24 23:03 Attending Provider: Jimbo Ibarra Primary Care Provider: Kory Ibarra Consulting Providers: Jemima Poe; John Paul Will Instructions Additional Instructions / Restrictions: Follow-up with your PCP to clarify the medications which were supposed to be taking as you have had a couple of duplications when we were doing our medication reconciliation on admission and discharge Discharge Orders/Prescriptions Prescriptions: New prednisone 10 mg tablet 10 mg PO DAILY Qty: 20 0RF Rx Instructions: 3 tablets daily for 3 days then 2 tablets daily for 3 days then 1 tablet daily for 3 days then half tablet daily for 4 days cefdinir 300 mg capsule 300 mg PO BID 3 Days Qty: 6 0RF Continued folic acid 1 mg tablet 1 mg PO DAILY furosemide 40 MG tablet 40 mg PO BID Patient Comments: Water pill sertraline 50 mg tablet 50 mg PO QHS Patient Comments: Anti-depressant/anxiety atorvastatin 10 MG tablet 10 mg PO QHS Patient Comments: CHOLESTEROL Eliquis 5 mg tablet 5 mg PO BID guaifenesin [Mucus Relief ER] 1,200 mg Tablet Extended Release 12hr 1,200 mg PO BID Qty: 10 0RF albuterol sulfate 0.63 mg/3 mL solution for nebulization 0.63 mg inhalation Q4H PRN (Reason: shortness of breath or wheezing) Qty: 75 0RF docusate sodium [Col-Rite] 100 mg capsule 100 mg PO BID PRN (Reason: constipation) diltiazem HCl 60 mg Tablet 60 mg PO Q8 Qty: 120 0RF metoprolol tartrate 25 mg Tablet 75 mg PO BID Qty: 180 0RF tiotropium bromide [Spiriva with HandiHaler] 18 mcg capsule, w/inhalation device 1 cap inhalation DAILY Qty: 30 0RF Rx Instructions: puncture 1 cap using device; one dose = 2 inhalations albuterol sulfate 90 mcg/actuation HFA aerosol inhaler 1 inh inhalation Q6H Qty: 6.7 0RF ipratropium-albuterol 0.5 mg-3 mg(2.5 mg base)/3 mL solution for nebulization 3 ml inhalation lisinopril 20 mg tablet 20 mg PO DAILY ondansetron HCl 4 mg tablet 4 mg PO Q12H PRN PRN (Reason: nausea/vomiting) potassium chloride 20 mEq tablet,ER particles/crystals 20 meq PO DAILY calcitonin (salmon) 200 unit/actuation spray,non-aerosol 1 spray DAILY risedronate 35 mg tablet PO potassium chloride 10 mEq tablet,ER particles/crystals 10 meq PO BID ferrous sulfate 324 mg (65 mg iron) tablet,delayed release (DR/EC) 324 mg PO BID Dulera 100-5 mcg/actuation HFA aerosol inhaler inhalation Spiriva Respimat 2.5 mcg/actuation mist 2 puff INHALATION DAILY Discontinued lisinopril 10 MG tablet 20 mg PO DAILY Patient Comments: BLOOD PRESSURE/HEART azithromycin 250 mg tablet PO metoprolol tartrate 100 mg tablet 200 mg PO Referrals / Follow Up: Kory Ibarra DO [Primary Care Provider] - 09/13/24 10:00 am Disposition Disposition (needs filled in before D/C Order can be placed): Home, Self Care Charges/Coding Visit Charges Inpatient E&M: 03772 Disch Hosp >30min
== END 2024-08-28 18:46 | disposition home health service (06) | DRG 193 ==
LOC: ED 23:36 → PCU 08-25 00:03
PROVIDERS: Admitting Provider Internal Medicine; Emergency Provider Emergency Medicine; PCP Family Medicine; Referring Provider Emergency Medicine; Visit Provider Family Medicine
DX: J15.9 Unspecified bacterial pneumonia (principal); I50.23 Acute on chronic systolic (congestive) heart failure; J44.0 Chronic obstructive pulmonary disease with (acute) lower respiratory infection; Z68.41 Body mass index [BMI] 40.0-44.9, adult; I48.19 Other persistent atrial fibrillation; J96.11 Chronic respiratory failure with hypoxia; Z66 Do not resuscitate; I11.0 Hypertensive heart disease with heart failure; F32.A Depression, unspecified; D50.9 Iron deficiency anemia, unspecified; E66.01 Morbid (severe) obesity due to excess calories; E78.5 Hyperlipidemia, unspecified; G47.33 Obstructive sleep apnea (adult) (pediatric); F41.9 Anxiety disorder, unspecified; Z79.01 Long term (current) use of anticoagulants; B34.8 Other viral infections of unspecified site; Z99.81 Dependence on supplemental oxygen; Z79.899 Other long term (current) drug therapy; Z86.711 Personal history of pulmonary embolism
CPT/HCPCS: 36415; 71046; 71250; 80048; 80053; 81001; 82306; 83605; 83735; 83880; 84100; 84484; 85025; 87449; 87631; 87633; 93005; 94640; 94660; 94668; 94762; 97116; 97162; 97166; 97530; 97535; 99252; 99285; A4216; G0463; J0696; J1938

== ENCOUNTER 2025-02-12 19:41 | Inpatient (IN) | payer MEDICARE, MEDICAID, SELFPAY ==
[2025-02-12] VITALS (8 sets, daily range): BP systolic 113–187; BP diastolic 68–88; PULSE 122–155; RESP 21–34; TEMP 36.6–37.3; O2SAT 95–100
--- NOTE | 2025-02-12 20:01 | EKG12_ITS ---
Test Reason : SOB Blood Pressure : */* mmHG Vent. Rate : 134 BPM Atrial Rate : * BPM P-R Int : * ms QRS Dur : 74 ms QT Int : 316 ms P-R-T Axes : * 76 189 degrees QTcB Int : 471 ms Atrial fibrillation with rapid ventricular response Nonspecific ST and T wave abnormality Abnormal ECG Confirmed by Brayan Link ([id number]), videotape editor KELLIE RODRIGUEZ ([id number]) on 02/14/2025 8:41:58 AM Referred By: Confirmed By: Brayan Link
--- NOTE | 2025-02-12 20:01 | RAD_ITS ---
PROCEDURE: CHEST PA AND LATERAL 02/12/2025 REASON FOR EXAM: SOB TECHNIQUE: Procedure Code: RADCXR Modality: DX Procedure: CHEST PA AND LATERAL COMPARISON: None FINDINGS: Right lower lobe opacity may reflect pneumonia, aspiration, and/or atelectasis. Moderate pulmonary edema. No pleural effusion or pneumothorax. Large cardiomegaly. No acute fractures. RAD/Chest PA and Lateral IMPRESSION: Right lower lobe opacity may reflect pneumonia, aspiration, and/or atelectasis. Moderate pulmonary edema. Large cardiomegaly. Reading Location: [id number]
--- NOTE | 2025-02-12 20:05 | EDS_ITS ---
HPI History of Present Illness Chief Complaint: Shortness of Breath Narrative Narrative: Patient is a 74-year-old female presenting to the emergency department for shortness of breath, increased sputum production and cough that started yesterday. She arrives with daughter who is at bedside. Patient has a past medical history of COPD, CHF on Lasix, A-fib on Eliquis and Cardizem. Patient lives with daughter and daughter states that her 2 kids have been sick with respiratory illnesses recently. Patient states that she is coughing up yellow sputum. She also endorses shortness of breath with rest and exertion. She has been taking her medications as prescribed. She reports that she had a fever however states it was 99.1. Denies chest pain, diaphoresis, abdominal pain, nausea, vomiting. States she checks her weight daily and is not much increased from baseline maybe a pound or 2 she states. States that she has as needed oxygen at home and started using it last night. Has been using her breathing treatments with no relief of her symptoms. [facility] Medical History Acute on chronic heart failure with reduced ejection fraction (HFrEF, <= 40%) Thrombocytopenia Anemia Congestive heart failure (CHF) Anxiety Pulmonary embolism COPD (chronic obstructive pulmonary disease) Non-smoker CPAP (continuous positive airway pressure) dependence On home oxygen therapy Atrial fibrillation Hypertension Asthma Depression Atrial fibrillation with RVR Anticoagulant long-term use Acute respiratory failure with hypoxia Obstructive sleep apnea Congestive heart failure (CHF) Dyslipidemia HTN (hypertension) Paroxysmal atrial fibrillation Morbid obesity with body mass index of 50.0-59.9 in adult Home Medications ?Medication ?Instructions ?Recorded ?Last Taken ?Type furosemide 40 mg tablet 40 mg PO BID diuretic 07/14/16 History atorvastatin 10 mg tablet 10 mg PO QHS cholesterol 05/0107/13/16 History apixaban 5 mg tablet (Eliquis) 5 mg PO BID blood thinn er 01/18/22 Unknown History albuterol sulfate 0.63 mg/3 mL 0.63 mg (3 mL) inhalati on Q4H PRN 01/22/22 Unknown Rx solution for nebulization shortness of breath or wheez ing #75 mL guaifenesin 1,200 mg tablet, 1,200 mg PO BID cough #10 tabs 01/22/22 Unknown Rx extended release 12 hr (Mucus Relief ER) folic acid 1 mg tablet 1 mg PO DAILY see PCP Unknown History sertraline 50 mg tablet 50 mg PO QHS mental health 0 05/25/24 Unknown History docusate sodium 100 mg capsule 100 mg PO BID PRN const ipation 06/03/24 Unknown History (Col-Rite) albuterol sulfate 90 mcg/actuation 1 inh inhalation Q6 H #6.7 grams 06/05/24 Unknown Rx aerosol inhaler diltiazem HCl 60 mg tablet 60 mg PO Q8 #120 tabs 06/05 Unknown Rx metoprolol tartrate 25 mg tablet 75 mg (3 x 25 mg) PO BID #180 tabs 06/05/24 Unknown Rx tiotropium bromide 18 mcg capsule 1 cap inhalation SHREE LY #30 06/05/24 Unknown Rx with inhalation device (Spiriva inhalations with HandiHaler) calcitonin (salmon) 200 1 spray intranasal DAILY 03/08 Unknown History unit/actuation nasal spray ferrous sulfate 324 mg (65 mg 324 mg PO BID 08/24/24 U nknown History iron) tablet,delayed release ipratropium 0.5 mg-albuterol 3 mg 3 ml inhalation Q8H 08/24/24 Unknown History (2.5 mg base)/3 mL nebulization soln lisinopril 20 mg tablet 20 mg PO DAILY 08/24/24 Unkn own History mometasone-formoterol HFA 100 1 puff inhalation Unknown History mcg-5 mcg/actuation aerosol inhaler (Dulera) ondansetron HCl 4 mg tablet 4 mg PO Q12H PRN PRN 08/24 Unknown History nausea/vomiting potassium chloride 10 mEq 10 meq PO BID 08/24/24 Unkno wn History tablet,extended release(part/cryst) potassium chloride 20 mEq 20 meq PO DAILY 08/24/24 Unk nown History tablet,extended release(part/cryst) risedronate 35 mg tablet mg PO 08/24/24 Unknown Histo ry tiotropium bromide 2.5 2 puff inhalation DAILY 08/13 05/09 Unknown History mcg/actuation mist for inhalation (Spiriva Respimat) cefdinir 300 mg capsule 300 mg PO BID 3 days #6 caps 08/28/24 Unknown Rx prednisone 10 mg tablet 10 mg PO DAILY #20 tabs 08/13 09/06 Unknown Rx Allergy/AdvReac Type Severity Reaction Status Date / Time bee venom protein (honey Allergy Other Verified 02/12/25 20:24 bee) (bee sting) Opioids - Morphine Analogues Allergy Other Verified 02/12/25 20:24 (narcotics) Tetanus Vaccines and Toxoid Allergy Unknown Verified 02/12/25 20:24 (Tetanus Vaccines & Toxoid) Family History Grandmother Breast cancer Father CVA (cerebral vascular accident) Surgical History H/O oophorectomy History of appendectomy Social History household members: children and none housing: house number of children: 2 current occupational status: retired pets and animals: Yes (2 dogs/2 cats) Smoking Status: Never smoker alcohol intake: never substance use type: does not use ROS ROS ED ROS Narrative see HPI EXAM Physical Exam Narrative Exam Narrative: Vital signs: Reviewed General: Alert and oriented x 3. Respiratory distress. Chronically ill- appearing. HEENT: Head is normocephalic and atraumatic, sinuses nontender, pupils equal round and reactive. Nares are patent. Oropharynx and throat exams normal. Neck: Supple without lymphadenopathy nontender Cardiovascular: Irregularly irregular rate and rhythm, no murmurs. No rubs or gallops. Normal S1 and S2 Respiratory: Tachypneic. Appears uncomfortable. Decreased breath sounds throughout, there is faint expiratory wheezing throughout. No rhonchi or rales heard. On 3 L nasal cannula saturating 97%. Abdominal: Soft and nontender. Normal bowel sounds. No guarding or rebound. Nonsurgical abdomen Extremities: Symmetric bilateral lower extremity 2+ pitting edema. No calf tenderness to palpation. No erythema. No bruising. Normal range of motion. Normal sensation. Skin: No rash or redness. Neurological: Cranial nerves II through XII are grossly intact. Normal strength and sensation. Normal cerebellar function The rest of the physical exam is unremarkable Const Vital Signs: 02/12/25 19:43 02/12/25 20:13 02/12/25 20:22 Temperature 99.2 F H 98 F Temperature Source Oral Oral Pulse Rate 127 H 122 H 134 H Respiratory Rate 26 H 25 H 21 H Respiratory Effort Respiratory Depth Respiratory Pattern Blood Pressure 187/79 H 137/68 H Blood Pressure Mean 115 91 Pulse Ox 97 99 Oxygen Delivery Method Nasal Cannula Oxygen Flow Rate (L/min) 3 02/12/25 20:22 02/12/25 20:22 02/12/25 21:00 Temperature 98.3 F Temperature Source Oral Pulse Rate 148 H Respiratory Rate 25 H Respiratory Effort Short of Breath Labored Accessory Muscle Use Respiratory Depth Shallow Respiratory Pattern Tachypnea Blood Pressure 113/73 Blood Pressure Mean 86 Pulse Ox 100 98 Oxygen Delivery Method Nasal Cannula Nasal Cannula Oxygen Flow Rate (L/min) 3 3 3 02/12/25 21:55 02/12/25 22:00 02/12/25 22:00 Temperature 98.2 F Temperature Source Oral Pulse Rate 150 H 141 H 155 H Respiratory Rate 34 H 31 H 26 H Respiratory Effort Respiratory Depth Respiratory Pattern Blood Pressure 147/78 H 130/88 H 130/88 H Blood Pressure Mean 101 102 102 Pulse Ox 97 97 96 Oxygen Delivery Method Nasal Cannula Nasal Cannula Nasal Cannula Oxygen Flow Rate (L/min) 3 3 2 02/12/25 22:37 Temperature 98.2 F Temperature Source Pulse Rate 155 H Respiratory Rate 26 H Respiratory Effort Respiratory Depth Respiratory Pattern Blood Pressure 130/88 H Blood Pressure Mean 102 Pulse Ox 96 Oxygen Delivery Method Oxygen Flow Rate (L/min) MDM MDM MDM Narrative Medical decision making narrative: Patient is a 74-year-old female presenting to the emergency department for shortness of breath, cough and increased sputum production that started yesterday. Patient was seen and examined. Vitals are stable however she is tachycardic with evidence of A-fib on the monitor in the rates of 120s to 130s. She is tachypneic in the low 30s. She is able to speak in short sentences. She saturating 97% on 3 L nasal cannula, baseline not on any oxygen. She has borderline febrile. Blood cultures x 2 obtained. Concern for possible sepsis. Will start with small 500 cc fluid bolus due to concern for sepsis however also concern for fluid overload. Differential includes but is not limited to: Pneumonia, CHF exacerbation, COPD exacerbation, PE, ACS EKG shows A-fib with RVR at a rate of 134. There is nonspecific ST and T wave abnormalities. Nothing meeting STEMI criteria. Patient given 3 DuoNeb breathing treatments and Solu-Medrol for likely COPD exacerbation. Chest x-ray and blood work obtained. Viral swab obtained. Patient is on Eliquis which makes PE less likely however if her workup is unremarkable we will consider CT scan. VBG with no evidence of respiratory acidosis, pH 7.4, pCO2 of 49 and pO2 of 38.9. Lactate within normal limits. CBC with no leukocytosis and chronic anemia that is actually improved from baseline of 10.5. BMP with mildly elevated anion gap of 16. Elevated total bilirubin at 2.43 and alk phos of 113, normal AST and ALT. Patient has no abdominal pain on history or physical exam. Do not think patient needs emergent abdominal imaging. Initial troponin of 22 and reflex of 18, no significant delta change. Viral swab negative. Chest x-ray reviewed by myself and there appears to be a right lower lobe opacity. Cardiomegaly noted. Mild vascular congestion. Radiology read in agreement. Patient was started on Rocephin and doxycycline for antibiotic coverage. Patient was given a 10 mg bolus of Cardizem for her A-fib with RVR. I did have a discussion with daughter and patient at bedside involving her medication list that includes both Cardizem and metoprolol. Daughter thinks that she is on for A-fib. She has been taking them as prescribed. Patient was encouraged improved breathing gonzales after breathing treatments. Will also trial 40 mg of Lasix for possible CHF exacerbation. Discussed admission with patient and daughter at bedside. They are agreeable. Discussed with hospitalist, Dr. Rosado accepted the patient for further management. Clinical impression: Acute on chronic hypoxic respiratory failure COPD exacerbation Pneumonia Elevated total bilirubin History & Record Review Discussion w/independent historian: Patient and Family Lab Data Attestation: I reviewed the patient's lab results. Labs: Laboratory Results - last 24 hr 02/12/25 02/12/25 20:03 22:07 WBC 9.0 RBC 3.71 L Hgb 10.5 L Hct 33.5 L MCV 90.3 MCH 28.3 MCHC 31.3 L RDW Std Deviation 49.8 H RDW Coeff of Giles 15.0 H Plt Count 57 L MPV 14.3 H Immature Gran % (Auto) 0.900 Neut % (Auto) 51.6 Lymph % (Auto) 7.9 L Towner % (Auto) 39.2 H Eos % (Auto) 0.2 Baso % (Auto) 0.2 Absolute Neuts (auto) 4.6 Absolute Lymphs (auto) 0.71 L Nucleated RBC % 0 Differential Comment SCANNED PT 19.8 H INR 1.6 APTT 41.4 H Sodium 143 Potassium 3.9 Chloride 98 Carbon Dioxide 29.1 Anion Gap 16 H BUN 18 Creatinine 1.07 Est GFR (MDRD) Non-Af 55 L BUN/Creatinine Ratio 16.8 Glucose 108 H Lactic Acid 1.5 Calcium 9.9 Total Bilirubin 2.43 H AST 21 ALT 10 Alkaline Phosphatase 113 H Troponin T High Sens 22 H Troponin T Hi Sens 2 Hr 18 H Total Protein 7.8 Albumin 5.0 H Globulin 2.8 Albumin/Globulin Ratio 1.8 ABG Data ABG results: ABG 02/12/25 20:32 Specimen Type CHA Sample Site Not entered O2 % 2.0 VBG pH 7.40 VBG pO2 39 VBG HCO3 30 H VBG Total CO2 32 VBG O2 Sat (Calc) 73 H VBG Base Excess 6 H POC Mix VBG pCO2 Pt Tmp 49.0 O2 Delivery Device Cannula Radiography Chest X-Ray - ED: Read by ED Physician, Cardiomegaly, CHF and Right Infiltrate Diagnostic Testing: Clinical Impression(s) from Imaging Studies Chest X-Ray 02/12/25 20:01 IMPRESSION: Right lower lobe opacity may reflect pneumonia, aspiration, and/or atelectasis. Moderate pulmonary edema. Large cardiomegaly. Reading Location: [facility] Discharge Plan Triage Chief Complaint: Shortness of Breath ED Provider: [employer] Dx/Rx/DC Orders Prescriptions: No Action folic acid 1 mg tablet 1 mg PO DAILY furosemide 40 MG tablet 40 mg PO BID Patient Comments: Water pill sertraline 50 mg tablet 50 mg PO QHS Patient Comments: Anti-depressant/anxiety atorvastatin 10 MG tablet 10 mg PO QHS Patient Comments: CHOLESTEROL Eliquis 5 mg tablet 5 mg PO BID guaifenesin [Mucus Relief ER] 1,200 mg Tablet Extended Release 12hr 1,200 mg PO BID Qty: 10 0RF albuterol sulfate 0.63 mg/3 mL solution for nebulization 0.63 mg inhalation Q4H PRN (Reason: shortness of breath or wheezing) Qty: 75 0RF docusate sodium [Col-Rite] 100 mg capsule 100 mg PO BID PRN (Reason: constipation) diltiazem HCl 60 mg Tablet 60 mg PO Q8 Qty: 120 0RF metoprolol tartrate 25 mg Tablet 75 mg PO BID Qty: 180 0RF tiotropium bromide [Spiriva with HandiHaler] 18 mcg capsule, w/inhalation device 1 cap inhalation DAILY Qty: 30 0RF Rx Instructions: puncture 1 cap using device; one dose = 2 inhalations albuterol sulfate 90 mcg/actuation HFA aerosol inhaler 1 inh inhalation Q6H Qty: 6.7 0RF ipratropium-albuterol 0.5 mg-3 mg(2.5 mg base)/3 mL solution for nebulization 3 ml inhalation Q8H lisinopril 20 mg tablet 20 mg PO DAILY ondansetron HCl 4 mg tablet 4 mg PO Q12H PRN PRN (Reason: nausea/vomiting) potassium chloride 20 mEq tablet,ER particles/crystals 20 meq PO DAILY calcitonin (salmon) 200 unit/actuation spray,non-aerosol 1 spray intranasal DAILY risedronate 35 mg tablet PO potassium chloride 10 mEq tablet,ER particles/crystals 10 meq PO BID ferrous sulfate 324 mg (65 mg iron) tablet,delayed release (DR/EC) 324 mg PO BID Dulera 100-5 mcg/actuation HFA aerosol inhaler 1 puff inhalation Spiriva Respimat 2.5 mcg/actuation mist 2 puff INHALATION DAILY prednisone 10 mg tablet 10 mg PO DAILY Qty: 20 0RF Rx Instructions: 3 tablets daily for 3 days then 2 tablets daily for 3 days then 1 tablet daily for 3 days then half tablet daily for 4 days cefdinir 300 mg capsule 300 mg PO BID 3 Days Qty: 6 0RF Primary Care Provider: Kory Ibarra Referrals: Kory Ibarra DO [Primary Care Provider, Family Practice] Print Language: Malagasy
[2025-02-12 20:25] LABS: Hematocrit 33.5 % (37-47); Hemoglobin 10.5 g/dL (12.0-15.0); Immature Granulocytes Count 0.080 X10^3/uL (0.0-0.0); Mean Corp Hgb Conc 31.3 g/dL (32-36); Mean Corpuscular Volume 90.3 fL (81-99); Mean Platelet Vol. 14.3 fl (6.2-12.0); NRBC Flagged by Analyzer 0 % (0-5); POSITIVE COUNT YES; POSITIVE DIFFERENTIAL YES; Platelet Count 57 K/mm3 (150-450); RBC Distribution Width CV 15.0 % (11.6-14.6); RBC Distribution Width SD 49.8 fl (35.1-43.9); Red Blood Count 3.71 M/mm3 (4.2-5.4); White Blood Count 9.0 K/mm3 (4.4-11.0)
[2025-02-12 20:33] LABS: Differential Indicated SCAN CRITERIA MET
[2025-02-12] MEDS: 0.9% Normal Saline (500mL Bag) 500 ML IV (20:35)
[2025-02-12 20:36] LABS: FI02 2.0; SITE Not entered; VBG BASE EXCESS 6 mmol/L (-1.0-3.5); VBG PO2 39 mmHg (25-40); VBG SO2 73 % (50-70); VBG TCO2 32 mmol/L (23-33)
[2025-02-12 20:37] LABS: Prothrombin Time (Protime)PT. 19.8 SECONDS (11.7-14.9)
[2025-02-12 20:38] LABS: Partial Thromboplast Time 41.4 Seconds (24.1-36.2)
[2025-02-12 20:58] LABS: Differential Comment SCANNED
[2025-02-12 21:10] LABS: Troponin T High Sensitivity 22 ng/L (<=14)
[2025-02-12 21:12] LABS: AST(SGOT) 21 U/L (<=31); Alanine Aminotransfer ALT/SGPT 10 U/L (<=34); Albumin, Serum 5.0 g/dL (3.4-4.8); Alkaline Phosphatase 113 U/L (35-104); Anion Gap 16 (5-15); BUN 18 mg/dL (4-19); BUN/Creat Ratio 16.8 RATIO (10-20); Calcium,Total 9.9 mg/dL (7.6-11.0); Carbon Dioxide 29.1 mmol/L (21.0-32.0); Chloride 98 mmol/L (98-108); Globulin 2.8 g/dL (2.2-4.2); Glucose 108 mg/dL (70-99); Potassium 3.9 mmol/L (3.3-5.1)
--- OUTSIDE RECORDS SUMMARY | 2025-02-12 21:19 | XMS RPT_ITS | CCD ---
Author Organization [facility] Care Team Providers Care Outreach Director Name Role Phone Bethel Freeman Unavailable Unavailable UNKNOWN, PROVIDER Unavailable Unavailable Tonya, Kory Unavailable Unavailable Barbralla, Kory F Primary Care Provider Petristanleya, Kory F Primary Care Provider Petristanleya DO, Kory F Primary Care Provider [phone] Petristanleya , [facility] [place] Primary Care Provider Petristanleya DO, [facility] [place] Primary Care Provider Petrilla DO, [facility] [place] Primary Care Provider Tonya, Kory Primary Care Unavailable Benita Moon Attending Unavailable PROVIDER, UNKNOWN Referring Unavailable Petrilla, Kory Primary Care Unavailable GENE MALDONADO Attending Unavailable PROVIDER, UNKNOWN Referring Unavailable GENE MALDONADO Attending Unavailable Petrilla, Kory Primary Care Unavailable PROVIDER, UNKNOWN Referring Unavailable Benita Moon Attending Unavailable Barbralla, Kory Primary Care Unavailable PROVIDER, UNKNOWN Referring Unavailable Chelo Huitron Attending Unavailable Petrilla, Kory Primary Care Unavailable PROVIDER, UNKNOWN Referring Unavailable Petrilla, Kory Primary Care Unavailable PROVIDER, UNKNOWN Referring Unavailable TonyaKory Attending Unavailable Petrilla, Kory Attending Unavailable PROVIDER, UNKNOWN Referring Unavailable Petrilla, Kory Primary Care Unavailable PROVIDER, UNKNOWN Referring Unavailable Ino Ly Attending Unavailable Petrilla, Kory Primary Care Unavailable PROVIDER, UNKNOWN Referring Unavailable Petrilla, Kory Primary Care Unavailable Petrilla, Kory Attending Unavailable PROVIDER, UNKNOWN Referring Unavailable Ino Ly Attending Unavailable Tonya, Kory Primary Care Unavailable Dr. Kory Ibarra Primary Care Provider Dr. David Plasencia Emergency Provider Dr. Jemima Poe Admit Provider Dr. Jemima Poe Attending Provider Dr. Jemima Poe Other Provider Dr. Luna Bustamante Attending Provider Robby, Dr. Luna Raya Other Provider Dr. Jimbo Ibarra Attending Provider Dr. Jimbo Ibarra Other Provider Barbrastanleya DO, Kory F Primary Care Provider Petrilla DO, Kory F Primary Care Provider Petrilla, Kory F Primary Care Provider Petrilla DO, Kory Primary Care Provider Tonya DO, [facility] [place] Primary Care Provider [phone] Tonya DO, Kory Mika Primary Care Provide r Jamie Jimenez MD Unavailable Tonya DO, [facility] [place] Primary Care Provider Jamie Jimenez MD Unavailable Maria Victoria BECKER, Dr. Brenner Primary Care Provider Maria Victoria BECKER, Dr. Brenner Referring Provider Scott Escudero Attending Provider Dr. Alyce Morel DO Emergency Provider Fred BECKER, Dr. Horn Primary Care Provider Dr. Wilbert Umanzor DO Admit Provider Dr. Wilbert Umanzor DO Attending Provider Dr. Wilbert Umanzor DO Referring Provider Erna BECKER, Dr. Atkins Other Provider Dr. John Paul Will DO Attending Provider Danie POLANCO, Dr. Carter Other Provider Xiao POLANOC, Dr. Dean Attending Provider Danie POLANCO, Dr. Carter Attending Provider Suman BECKER, Dr. Coker Other Provider Briana BLANCO, Sindy Unavailable Unavailabl e MIRANDA MARION Referring Unavailable [facility] Primary Care Unavail able PETRILLA, [facility] Primary Care Unavail able MIRANDA MARION Attending Unavailable [facility] Primary Care Unavail able Christy BECKER, Dr. Coker Referring Provider Christy BECKER, Dr. Coker Emergency Provider Lui BECKER, Dr. Onofre Admit Provider Lui BECKER, Dr. Onofre Attending Provider Lui BECKER, Dr. Onofre Other Provider Fred POLANCO, Dr. Jimbo Stratton Attending Provider Lui BECKER, Dr. Onofre Attending Provider Fred POLANCO, Dr. Jimbo Stratton Other Provider Jimbo Ibarra Attending Unavailable [facility] Primary Care Unavailable Jemima Poe Consulting Unavailable Jemima Poe Admitting Unavailable Schwiger, John Paul Referring Unavailable Jopperi, John Paul Consulting Unavailable Mosteller, Wilbert Admitting Unavailable Luceroppalex John Paul Attending Unavailable [facility] [place] [facility] Care Unavailable Mosteller, Wilbert Consulting Unavailable Mosteller, Wilbert Referring Unavailable Danie, Raul Consulting Unavailable Koram, Luna Dorota Consulting Unavailable Koram, Luna Dorota Attending Unavailable Koram, Luna Dorota Admitting Unavailable Rayo, Kavin Referring Unavailable [facility], [place] Primary Care Unavailable Mosteller, Wilbert Admitting Unavailable Mosteller, Wilbert Consulting Unavailable Danie, Raul Attending Unavailable [facility] Primary Care Unavailable Mosteller, Wilbert Referring Unavailable Danie, Raul Consulting Unavailable Jopperi, John Paul Attending Unavailable Jopperi, John Paul Consulting Unavailable Lui, Jemima Consulting Unavailable Lui, Jemima Attending Unavailable Lui, Jemima Admitting Unavailable Petrilla, Kory Primary Care Unavailable Christy John Paul Referring Unavailable Jermaine Hagen Attending Unavailable Petrilla, Kory Primary Care Unavailable John Paul Will Attending Unavailable John Paul Will Consulting Unavailable Jimbo Ibarra Attending Unavailable Jimbo Ibarra Consulting Unavailable Scott Escudero Attending Unavailable Sheets, [place] Primary Care Unavailable Sheets, Davis Referring Unavailable Wilbert Umanzor Attending Unavailable Luna Bustamante Attending Unavailable Luna Bustamante Dorota Admitting Unavailable Kavin Rayo Referring Unavailable Sheets, [place] Primary Care Unavailable Siobhan DO, Marion E Unavailable [phone] PETRILLA, KORY Primary Care Unavailable NESHEIM, ELIAS Attending Unavailable PETRILLA, KORY Primary Care Unavailable PETRILLA, KORY Attending Unavailable PETRILLA, KORY Primary Care Unavailable BENITA MOON Attending Unavailable PETRILLA, KORY Primary Care Unavailable EILEEN JEFFERS Attending Unavailabl e RAYA, YANELIS Admitting Unavailable ROBYN ASTORGA Consulting Unavailable PETRILLA, KORY Primary Care Unavailable CURT LAST Attending Unavailable MARION MCCANN Attending Unavailable PETRILLA, KORY Primary Care Unavailable JOSSELYN BHARDWAJ Attending Unavailable PETRILLA, KORY Primary Care Unavailable BENITA MOON Attending Unavailable PETRILLA, KORY Primary Care Unavailable PETRILLA KORY Attending Unavailable PETRILLA, KORY Primary Care Unavailable PETRILLA, KORY Attending Unavailable PETRILLA, KORY Referring Unavailable PETRILLA, KORY Primary Care Unavailable PETRILLA, KORY Primary Care Unavailable DASESA E Attending Unavailable SIOBHAN, MARION E Referring Unavailable PETRILLA, KORY Primary Care Unavailable CURT LAST Attending Unavailable CURT LAST Referring Unavailable PETRILLA, KORY Primary Care Unavailable CURT LAST Referring Unavailable CURT LAST Attending Unavailable BENITA MOON Attending Unavailable BENITA MOON Referring Unavailable PETRILLA, KROY Primary Care Unavailable PETRILLA, KORY Primary Care Unavailable NESHEIM, ELIAS Referring Unavailable PETRILLA, KORY Primary Care Unavailable KELLIE MALDONADO Referring Unavailable PETRILLA, KORY Primary Care Unavailable PETRILLA, KORY Attending Unavailable PETRILLA, KORY Referring Unavailable PETRILLA, KORY Attending Unavailable PETRILLA, KORY Primary Care Unavailable PETRILLA, KORY Referring Unavailable PETRILLA, KORY Primary Care Unavailable PETRILLA, KORY Attending Unavailable PETRILLA, KORY Referring Unavailable PETRILLA, KORY Primary Care Unavailable MONEYPENNY, JOSSELYN Referring Unavailable MONEYPENNY, JOSSELYN Attending Unavailable PETRILLA, KORY Primary Care Unavailable CHELO HUITRON Attending Unavailable PETRILLA, KORY Attending Unavailable PETRILLA, KORY Primary Care Unavailable PETRILLA, KORY Primary Care Unavailable CHELO HUITRON Attending Unavailable PETRILLA, KORY Primary Care Unavailable PETRILLA, KORY Attending Unavailable PETRILLA, KORY Primary Care Unavailable PETRILLA, KORY Referring Unavailable PETRILLA, KORY Attending Unavailable PETRILLA, KORY Primary Care Unavailable SIOBHAN, MARION E Attending Unavailable SIOBHAN, MARION E Referring Unavailable PETRILLA, KORY Primary Care Unavailable SIOBHAN, MARION E Attending Unavailable PETRILLA, KORY Primary Care Unavailable SIOBHAN, MARION E Attending Unavailable PETRILLA, KORY Primary Care Unavailable PETRILLA, KORY Primary Care Unavailable KELLIE MALDONADO Attending Unavailable PETRILLA, KORY Primary Care Unavailable TONE ÁLVAREZ Consulting Unavailable ANA MELÉNDEZ Admitting Unavailable CURT CAPUTO Attending Unavailable CURT GRAHAM Consulting Unavailable PETRILLA, KORY Primary Care Unavailable CURT LAST Attending Unavailable Allergies Allergy Classification Reported Allergen(s) Allergy Type Date of Onset Reaction(s) Facility HMG-CoA Reductase Inhibitors (statins) (3 sources) Hmg-Coa Reductase Inhibitors (Statins) Drug Allergy 7 [facility] Opioid Agonists (4 sources) oxyCODONE Drug Allergy 8 [facility] (20 sources) Hmg-Coa Reductase Inhibitors (Statins) Propensity to adverse reactions to drug 7 [place], [place] (20 sources) oxyCODONE; Translations: [OXYCODONE] Drug Allergy 8 Mental Status Change [place], [place] (20 sources) Tetanus vaccine Propensity to adverse reactions to drug 5 Swelling [place], [place] (20 sources) HMG-CoA reductase inhibitor Drug Intolerance 7 Other [facility] (6 sources) HMG-CoA reductase inhibitor; Translations: [[id number] A REDUCTASE INHIBITORS] Drug Allergy 7 Intolerance, Myalgia [facility] Work Phone: (6 sources) Tetanus And Diphtheria Toxoids; Translations: [TETANUS AND DIPHTHERIA TOXOIDS] Drug Intolerance 9 Swelling [facility] Work Phone: (20 sources) bee venom protein (honey bee) Allergy to substance 5 Other [facility] (4 sources) Opioids - Morphine Analogues Allergy to substance 5 [facility] (20 sources) Honey bee venom Drug Allergy 5 [facility] (20 sources) Morphine Drug Allergy [address] [facility] (1 source) Opioids - Morphine Analogues Drug allergy (disorder) 5 [facility] (1 source) Tetanus Vaccines and Toxoid Drug allergy (disorder) 5 [facility] (1 source) bee venom protein (honey bee) Drug allergy (disorder) 5 [facility] (20 sources) bee venom Allergy to substance [address] [facility] (20 sources) Tetanus Toxoid-Containi ng Vaccines Drug Allergy 5 [facility] Medications Current Medications Medication Drug Class(es) Dates [...] above: Take 650 mg by mouth . [id number] 200 actuat albuterol 0.09 mg/actuat metered dose [...] WHEEZING OR FOR SHORTNESS OF BREATH (BULK) albuterol 0.833 mg/ml / ipratropium bromide 0.167 mg/ml inhalation solution (6 sources) Anticholinergic, beta2-Adrenergic Agonist Start: 08-24-2024 Ipratropium-Albuterol 0.5 mg-3 mg(2.5 mg base)/3 mL solution for nebulization Active 3 mL INHALATION August 24, 2024 12:00am Start: 05-25-2024 End: 05-30-2024 take 1 mL by inhalation every six hours Ipratropium-Albuterol 0.5 mg-3 mg(2.5 mg base)/3 mL solution for nebulization Discontinued 3 mL INHALATION EVERY 6 HOURS 90 5 May 25, 2024 12:00am May 29, 2024 12:00am May 30, 2024 12:12am apixaban 5 mg oral tablet (20 sources) Factor Xa Inhibitor Start: 11-11-2021 End: 01-27-2025 take 1 tablet by mouth twice daily in the morning apixaban (Eliquis) 5 MG tablet Indications: Permanent atrial fibrillation (HCC) , Anticoagulant long-term use TAKE 1 TABLET BY MOUTH 2 TIMES DAILY 180 tablet 3 10/18/2024 8:20 AM EDT 01/25/2024 01/27/2025 Active Comment on above: Take 1 tablet by zully th two times a day. atorvastatin 10 mg oral tablet (20 sources) HMG-CoA Reductase Inhibitor Start: 07-14-2016 End: 08-15-2024 take 1 tablet by mouth once daily atorvastatin (Lipitor) 10 MG tablet TAKE ONE TABLET BY MOUTH DAILY AT 5PM 90 tablet 1 08/15/2024 Active Comment on above: Take 10 mg by mouth. Beclomethasone Diprop Inhaler (1 source) Corticosteroid Start: 07-14-2016 Beclomethasone Diprop Inhaler (Qvar 80 Mcg Inhaler) 1 PUFF inhaler Active 2 PUFF IH TWICE A DAY July 13, 2016 11:00pm benzonatate 100 mg oral capsule (3 sources) Non-narcotic Antitussive Start: 12-29-2022 End: 01-08-2023 take 2 capsules by mouth three times [...] area prn Calcium Carbonate / Vitamin D (20 sources) Calcium Carbonate-Vitamin D (CALCIUM-VITAMIN D PO) Take by mouth. Active cefdinir 300 mg oral capsule (1 source) Cephalosporin Antibacterial Start: 08-28-2024 take 1 capsule by mouth twice daily Cefdinir 300 mg capsule Active 300 mg PO TWICE A DAY 6 3 August 28, 2024 12:00am CPAP Machine MISC (20 sources) Start: 01-18-2019 CPAP Machine MISC by Does not apply route Use at prior settings 1 each 0 01/18/2019 Active CPAP Machine MIS C by Does not apply route nightly 0 Active dilTIAZem hydrochloride 60 mg oral tablet (20 sources) Calcium Channel Reina Start: 06-05-2024 End: 11-13-2024 take 1 tablet by mouth every eight hours dilTIAZem (Cardizem) 60 MG immediate release tablet Take 1 tablet (60 mg) by mouth every 8 hours for 270 doses. 270 tablet 1 08/15/2024 Active Start: 10-27-2013 End: 10-28-2013 take 1 capsule by mouth once daily Diltiazem Hcl 360 MG Cap.Er.24h Discontinued 360 mg PO DAILY October 27, 2013 12:00am October 28, 2013 5:49pm docusate sodium 100 mg oral capsule (20 sources) Start: 06-03-2024 Docusate Sodium (DSS) 100 MG capsule 100 mg. 06/03/2024 Active ergocalciferol 64277 unt oral capsule (1 source) Provitamin D2 Compound Start: 05-25-2018 take 1 capsule by mouth every week ergocalciferol (ERGOCALCIFEROL) 79372 units capsule Take 1 capsule by mouth once a week 90 capsule 1 05/25/2018 Active ferrous sulfate 324 mg delayed release oral tablet (20 sources) Start: 06-23-2024 End: 08-15-2024 ferrous sulfate 324 (65 Fe) MG EC tablet One bid on empty stomach 30 min before meals or 2 hours after 180 tablet 1 08/15/2024 Active 60 actuat fluticasone propionate 0.25 mg/actuat / salmeterol 0.05 mg/actuat dry powder inhaler (14 sources) Corticosteroid, beta2-Adrenergic Agonist Start: 12-15-2024 Fluticasone-[place] rol 250-50 MCG/ACT aerosol powder Inhale 1 Inhalation 2 times daily. 60 each 3 12/15/2024 Active folic acid 1 mg oral tablet (20 sources) Start: 05-04-2024 End: 02-11-2025 take 1 tablet by mouth once daily folic acid (Folvite) 1 MG tablet Take 1 tablet (1 mg) by mouth daily. 90 tablet 1 08/15/2024 02/11/2025 Active 60 actuat formoterol fumarate 0.005 mg/actuat / mometasone furoate 0.1 mg/actuat metered dose inhaler (20 sources) Corticosteroid, beta2-Adrenergic Agonist Start: 06-20-2024 End: 11-20-2024 take 2 puff(s) by inhalation twice daily Dulera 100-5 MCG/ACT inhaler Inhale 2 puffs 2 times daily. Please see attached for detailed directions 13 g 1 11/20/2024 Active Start: 05-05-2024 End: 05-05-2025 Dulera 100-5 MCG/ACT [...] guaiFENesin 1200 mg extended release oral tablet (10 sources) Start: 01-22-2022 take 1 tablet by mouth twice daily, then take 1 tablet by mouth every twelve hours Guaifenesin (Mucus Relief Er) 1,200 mg Tablet Extended Release 12hr Active 1200 mg PO TWICE A DAY January 22, 2022 1:00am Start: 01-31-2019 take 2 tablets by mo ut twice daily guaiFENesin (MUCINEX) 600 mg 12 hr tablet Take 2 tablets by mouth twice daily. 24 tablet 01/31/2019 Active Comment on above: Take 2 tablets by mo ut twice daily. ammonium lactate 120 mg/ml topical lotion (20 sources) Start: 3 End: 4 ammonium lactate (Lac-Hydrin) 12 % lotion Apply topically daily. 396 g 1 03/03/2023 03/02/2024 Active lisinopril 20 mg oral tablet (20 sources) Angiotensin Converting Enzyme Inhibitor Start: 4 End: 5 take 1 tablet by mouth once [...] last modification) on 02/19/24 at 0800 Start: 10-12-2019 take 1 tablet by zully [...] Start: 10-21-2018 take 1 tablet by zully th once daily lisinopril (PRINIVIL;ZESTRIL) 10 MG tablet Take 1 tablet by mouth daily 90 tablet 0 10/21/2018 Active Start: 01-24-2016 End: 08-28-2024 take 2 tablets by mouth once daily Lisinopril 10 MG tablet Discontinued 20 mg PO DAILY January 24, 2016 1:00am August 28, 2024 10:07am Start: 01-24-2016 take 20 mg by mouth once daily Lisinopril Active 20 MG PO DAILY January 24, 2016 12:00am Start: 10-27-2013 End: 04-03-2025 take 1 tablet by mouth once daily lisinopril 20 MG tablet Take 1 tablet (20 mg) by mouth daily. 90 tablet 1 08/14/2024 02/10/2025 Active Comment on above: Take 20 mg by mouth once daily. miconazole nitrate 0.02 mg/mg topical powder (20 sources) Azole Antifungal Start: 02-16-2024 End: 05-08-2024 miconazole (Micotin) 2 % powder Apply topically 2 times daily. 02/22/2024 Active Mometasone-Formoterol (Dulera) 100-5 mcg/actuation HFA aerosol inhaler (5 sources) Start: 08-24-2024 Mometasone-Formoterol (Dulera) 100-5 mcg/actuation HFA aerosol inhaler Active INHALATION August 24, 2024 12:00am Start: 05-25-2024 End: 06-03-2024 Mometasone-Formoterol (Duler a) 100-5 mcg/actuation HFA aerosol inhaler Discontinued INHALATION May 25, 2024 12:00am June 03, 2024 10:26am Start: 05-25-2024 Mometasone-For moterol (Dulera) 100-5 mcg/actuation HFA aerosol inhaler Active INHALATION May 25, 2024 12:00am Mometasone-Formoterol [Mometasone-Formoterol Hfa 100 Mcg-5 Mcg/Actuation Aerosol Inhaler] (Mometasone-Formoterol Hfa 100 Mcg-5 Mcg/Actuation Aerosol ) 100-5 mcg/actuation HFA aerosol inhaler (1 source) Start: 08-24-2024 Mometasone-Formoterol [Mometasone-Formoterol Hfa 100 Mcg-5 Mcg/Actuation Aerosol Inhaler] (Mometasone-Formoterol Hfa 100 Mcg-5 Mcg/Actuation Aerosol ) 100-5 mcg/actuation HFA aerosol inhaler Active INHALATION August 24, 2024 12:00am ondansetron 4 mg oral tablet (20 sources) Serotonin-3 Receptor Antagonist Start: 08-24-2024 take 1 tablet by mouth every twelve hours as needed for nausea Ondansetron Hcl 4 mg tablet Active 4 mg PO EVERY 12 HOURS NEEDED as needed for nausea/vomiting August 24, 2024 12:00am Start: 04-03-2024 End: 06-19-2024 take 1 tablet by mouth every twelve hours as needed for nausea ondansetron (Zofran) 4 MG tablet Take 1 tablet (4 mg) by mouth every 12 hours as needed for nausea or vomiting for up to 20 doses. 20 tablet 04/03/2024 06/19/2024 Discontinued (Med list cleanup) predniSONE 10 mg oral tablet (20 sources) Start: 08-28-2024 take 3 tablets by mouth once daily, then take 2 tablets by mouth once daily, then take 1 tablet by mouth once daily, then take 0.5 tablet by mouth once daily Prednisone 10 mg tablet Active 10 mg PO DAILY August 28, 2024 12:00am 3 tablets daily for 3 days then 2 tablets daily for 3 days then 1 tablet daily for 3 days then half tablet daily for 4 days Start: 06-05-2024 End: 08-28-2024 take 2 tablets by mouth once daily Prednisone 20 mg tablet Discontinued 40 mg PO DAILY June 05, 2024 12:00am August 28, 2024 5:42am Start: 05-09-2024 End: 05-18-2024 Start: 05-06-2024 End: [...] PO WITH BREAKFAST January 22, 2022 12:00am risedronate sodium 35 mg oral tablet (19 sources) Start: 04-03-2024 End: 04-03-2025 Risedronate 35 mg tablet Active mg PO August 24, 2024 12:00am salmon calcitonin 200 unt/actuat nasal spray (20 sources) Calcitonin Start: 08-24-2024 Calcitonin (Sa lmon) 200 unit/actuation spray,non-aerosol Active 1 NMA DAILY August 24, 2024 12:00am Start: 05-25-2024 calcitonin, sa lmon, (Miacalcin) 200 UNIT/ACT nasal spray Administer 1 spray into one nostril daily. 05/25/2024 Active sertraline 50 mg oral tablet (20 sources) Serotonin Reuptake Inhibitor Start: 11-09-2018 End: 08-11-2023 sertraline (ZOLOFT) 25 mg tablet Take 25 mg by mouth. 11/09/2018 Active Start: 10-27-2013 End: 08-15-2024 take 1 tablet by mouth once daily sertraline (Zoloft) 50 MG tablet TAKE 1 TABLET BY MOUTH EVERY DAY IN EARLY EVENING 90 tablet 1 08/15/2024 Active Start: 10-27-2013 take 25 mg by mouth at bedtime Sertraline Active 25 MG PO AT BEDTIME October 26, 2013 11:00pm Comment on above: Take 25 mg by mouth. spironolactone 25 mg oral tablet (20 sources) Aldosterone Antagonist Start: 2024 End: 2025 take 1 tablet by mouth once daily spironolactone (Aldactone) 25 MG tablet Indications: Chronic heart failure with mildly reduced ejection fraction (HFmrEF, 41-49%) (HCC) Take 1 tablet (25 mg) by mouth daily. 90 tablet 1 01/02/2025 07/01/2025 Active sulfacetamide sodium 100 mg/ml ophthalmic solution (1 source) Sulfonamide Antibacterial Start: 2020 End: 2020 take 2 drop(s) into the eye(s) four times daily sulfacetamide (BLEPH-10) 10 % ophthalmic solution Place 2 drops into the left eye 4 times daily for 10 days 1 Bottle 0 05/20/2020 05/30/2020 Active 60 actuat tiotropium 0.0025 mg/actuat inhalation spray (20 sources) Anticholinergic Start: 2024 take 2.5 ug by inhalation once daily Tiotropium [place] (Spiriva Respimat) 2.5 mcg/actuation mist Active 2 NMA INHALATION DAILY August 24, 2024 12:00am Start: 05-25-2024 End: 06-03-2024 take 2.5 ug by inhalation once daily Tiotropium [place] (Spiriva Respimat) 2.5 mcg/actuation mist Discontinued INHALATION DAILY May 25, 2024 12:00am June 03, 2024 10:27am Start: 05-06-2024 End: 08-15-2025 take 2 puff(s) by inhalation once daily tiotropium (Spiriva Respimat) 2.5 MCG/ACT inhaler Inhale 2 puffs daily. 4 g 11 08/15/2024 08/15/2025 Active Start: 05-03-2024 End: 05-06-2025 tiotropium (Spiriva Respimat) 2.5 MCG/ACT inhaler (8 sources) Start: 08-15-2024 End: 08-15-2025 take 2 puff(s) by inhalation once daily tiotropium (Spiriva Respimat) 2.5 MCG/ACT inhaler Inhale 2 puffs daily. 4 g 11 08/15/2024 08/15/2025 Active Tiotropium [place] (Spiriva With Handihaler) 18 mcg capsule, w/inhalation device (3 sources) Start: 06-05-2024 take 1 capsule by inhalation once daily Tiotropium [place] (Spiriva With Handihaler) 18 mcg capsule, w/inhalation [...] six hours as needed for pain HYDROcodone-acetaminophen ([place]) 5-325 MG tablet Indications: Acute right-sided low [...] mg from all sources in 24 hours. ALPRAZolam 0.5 mg disintegrating oral tablet (2 sources) Benzodiazepine Start: 12-20-2024 End: 12-20-2024 take 1 tablet by mouth once 0.5 mg, Oral, Once, On Wed12/20/24 at 0730, For 1 dose, Preprocedure, Using dry hands, place tablet on top of tongue and allow to disintegrate. Administration with water is not necessary. amoxicillin 875 mg / clavulanate 125 mg oral tablet (20 sources) Penicillin-class Antibacterial Start: 05-25-2024 End: 06-05-2024 [...] on above: Take 1 tablet by zully two times a day for 7 days. azithromycin 250 mg oral tablet (6 sources) Macrolide Antimicrobial Start: 08-24-2024 End: 08-28-2024 Azithromycin 250 mg tablet Discontinued mg PO August 24, 2024 12:00am August 28, 2024 10:12am Start: 08-21-2024 End: 08-26-2024 azithromycin (Zithromax) 250 MG tablet Take 2 tabs (500 mg) by mouth today, than 1 daily for 4 days. 6 tablet 08/21/2024 08/26/2024 Active calcium chloride 0.0014 meq/ml / potassium chloride 0.004 meq/ml / sodium chloride 0.103 meq/ml / sodium lactate 0.028 meq/ml injectable solution (4 sources) Start: 04-28-2024 End: 04-29-2024 cephalexin 500 mg oral capsule (10 sources) Cephalosporin Antibacterial Start: 08-09-2024 End: 08-16-2024 take 1 capsule by mouth three times daily cephalexin (Keflex) 500 MG capsule Take 500 mg by mouth 3 times a day. 08/09/2024 08/16/2024 Start: 05-05-2024 End: 05-12-2024 Start: 02-22-2024 End: [...] that apply): Skin and Soft Tissue Infection cetirizine hydrochloride 5 m g oral tablet (20 sources) Histamine-1 Receptor Antagonist Start: 04-28-2024 End: 05-08-2024 take 1 tablet by mouth once mahesh y cetirizine (ZyrTEC) 10 MG tablet Take 10 mg by mouth Nightly. Active dexamethasone 6 mg oral tablet (4 sources) Corticosteroid Start: 12-03-2023 End: 06-03-2024 take 1 tablet by mouth once daily Dexamethasone 6 mg tablet Discontinued 6 mg PO DAILY December 03, 2023 12:00am June 03, 2024 10:25am dextromethorphan hydrobromide 2 mg/ml / guaiFENesin 20 mg/ml oral suspension (2 sources) Uncompetitive Z-oxfdeg-S-aspartat e Receptor Antagonist, Sigma-1 Agonist Start: 04-30-2024 End: 05-08-2024 take 5 mL by mouth every four hours as needed for cough digoxin 0.125 mg oral tablet (20 sources) Cardiac Glycoside Start: 02-19-2024 End: 02-22-2025 take 1 tablet by mouth once daily digoxin (Lanoxin) 250 MCG tablet Take 1 tablet (250 mcg) by mouth daily. 02/23/2024 04/03/2024 Discontinued Start: 01-24-2016 End: 04-03-2025 take 1 tablet by mouth once daily Digoxin (Digox) 125 MCG tablet Discontinued 125 ug PO DAILY January 24, 2016 1:00am June 05, 2024 12:47pm Comment on above: Take 125 mcg by mout h. 2 ml fentaNYL 0.05 mg/ml injection (4 sources) Opioid Agonist Start: 2024 End: 2024 IntraVENous, As needed, Starting on Wed12/20/24 at 0852, Intraprocedure fluconazole 200 mg oral tablet (4 sources) Azole Antifungal Start: 2023 End: 2024 take 1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 Abnormal [facility] Leukocyte morphology finding Nom (Bld) Normal [facility] Lymphocytes (Bld) [#/Vol] 1.5 10*3/uL 1.0 - 4.3 10*3/uL [facility] Lymphocytes Manual 13 [facility] Lymphocytes/100 WBC (Bld) 13 % Low 15 - 45 % [facility] Monocytes (Bld) [#/Vol] 3.3 10*3/uL High 0.0 - 0.9 10*3/uL [facility] Monocytes Manual 28 [facility] Monocytes/100 WBC (Bld) 28 % High 5 - 13 % [facility] Neutrophils (Bld) [#/Vol] 7 10*3/uL 1.8 - 7.5 10*3/uL [facility] Neutrophils Manual 58 [facility] Ovalocytes LM Ql (Bld) Slight Abnormal (none) [facility] Platelet morphology finding Nom (Bld) Normal [facility] Poikilocytosis LM Ql (Bld) Slight Abnormal (none) [facility] Segmented neutrophils/100 WBC (Bld) 58 % 38 - 82 % [facility] No Panel Informationon 12-[address]-guided marrow aspiration and nontarget bone biopsy. Report Dictated on Electronically Signed By: Ovidio Loaiza MD Electronically Signed Date/Time: 12/20/2024 4:29 PM [facility] RADIOLOGY SYSTEM Patient Name: ALTA MOYA : 1950 Exam Date/Time: 12/20/2024 08:28 Procedure: CT GUIDED BIOPSY BONE MARROW Ordering Provider: MCCANN TERESA Reason For Exam: ANEMIA; LEUKOCYTOSIS CLINICAL HISTORY: Anemia, leukocytosis, thrombocytopenia Procedures: CT guided marrow aspiration and nontarget bone biopsy Physician: Dr. Loaiza MEDICATIONS: Local lidocaine, 1 mg Versed IV, 50 mcg fentanyl IV Conscious sedation was performed by a trained sedation nurse/trained independent observer under my direct supervision. Intraservice time was 15 minutes EBL: Minimal. Contrast: None Specimen sent: 18 mL bone marrow aspirate, 1 x 13 gauge bone core COMPLICATIONS: None Procedural details: All of the risk, benefits, and alternative treatments were explained to the patient and informed consent was obtained and documented. The patient was brought into the CT suite and placed in the prone position. A CT was performed of the pelvis to evaluate for needle position for bone marrow aspiration. Dose reduction was employed by automated exposure control. A timeout was called, confirming both patient and procedure. Local anesthesia and conscious sedation was administered. A 11-gauge on control guiding needle was advanced under intermittent CT guidance into the peripheral medullary space of the left iliac bone. Approximately 18 mL of bone marrow was aspirated and handed to the ups driver for processing. Using the 13-gauge coring needle and on control drill, a single 13-gauge x 3 cm core was obtained. All needles were removed and hemostasis was obtained with manual pressure. FINDINGS: Needle tip centered within the left iliac bone. [facility] RADIOLOGY SYSTEM Ovidio Loaiza MD - 12/20/2024 Patient Name: [facility]TA [facility]AKER : 1950 [id number] Exam Date/Time: 12/20/2024 08:28 Procedure: CT GUIDED BIOPSY BONE MARROW Ordering Provider: MCCANN TERESA Reason For Exam: ANEMIA; LEUKOCYTOSIS CLINICAL HISTORY: Anemia, leukocytosis, thrombocytopenia Procedures: CT guided marrow aspiration and nontarget bone biopsy Physician: Dr. Loaiza MEDICATIONS: Local lidocaine, 1 mg Versed IV, 50 mcg fentanyl IV Conscious sedation was performed by a trained sedation nurse/trained independent observer under my direct supervision. Intraservice time was 15 minutes EBL: Minimal. Contrast: None Specimen sent: 18 mL bone marrow aspirate, 1 x 13 gauge bone core COMPLICATIONS: None Procedural details: All of the risk, benefits, and alternative treatments were explained to the patient and informed consent was obtained and documented. The patient was brought into the CT suite and placed in the prone position. A CT was performed of the pelvis to evaluate for needle position for bone marrow aspiration. Dose reduction was employed by automated exposure control. A timeout was called, confirming both patient and procedure. Local anesthesia and conscious sedation was administered. A 11-gauge on control guiding needle was advanced under intermittent CT guidance into the peripheral medullary space of the left iliac bone. Approximately 18 mL of bone marrow was aspirated and handed to the ups driver for processing. Using the 13-gauge coring needle and on control drill, a single 13-gauge x 3 cm core was obtained. All needles were removed and hemostasis was obtained with manual pressure. FINDINGS: Needle tip centered within the left iliac bone. IMPRESSION: Successful uncomplicated CT-guided marrow aspiration and nontarget bone biopsy. Report Dictated on Electronically Signed By: Ovidio Loaiza MD Electronically Signed Date/Time: 12/20/2024 4:29 PM EDT [facility] Radiology Study observation (narrative) [facility] No Panel InformationOrdered By: Ovidio Loaiza on 12-20-2024 [facility] Work Phone: Nursing Noteon 12-20-2024 Nursing Note Normal [facility] 29on 12-19-2024 29 Addended by: JOSSELYN LOVE on: 12/19/2024 05:01 PM Modules accepted: Orders [facility] 29 Addended by: MIGUEL AMEZCUA on: 12/19/2024 09:36 AM Modules accepted: Orders [facility] 36on 12-19-2024 36 May be getting a lit tle dehydrated on new medication, please increase PO hydration and repeat BMP prior to next OV. Call sooner if any changes in symptoms. Relayed the above to the Pt, Pt confirmed understanding. Normal [facility] 36 Normal [facility] 36 Pt has not been che phil Wt/ BP at home Normal [facility] 36 TC to Pt and let her to know that her labs show an NICK Pt said that she is drinking more fluid than normal Pt has no s/s of HF or Dehydration Let Pt know that I would talk to Josselyn and get back to her Pt confirmed understanding. Normal [facility] 36 See other TE Normal [facility] 36 Patient called to niya olivas results of her recent labs. Normal [facility] 36 TC to Pt no answer LVM Normal [facility] BASIC METABOLIC PANELon 10-0 Anion gap [Moles/Vol] 9 mmol/L Normal 3-13 [facility] Comment on above: Performed By: #### L [id number] ####Digital Watch Assembler: VIVIAN PANTOJA ([id number])[facility]ENTERBessy [place] (SWRLAB)[address] Calcium [Mass/Vol] 10.2 mg/dL High 8.8-10.0 [facility] Comment on above: Performed By: #### L AB15 ####Digital Watch Assembler: VIVIAN PANTOJA ([id number])[facility]ENTERBess[facility] [place] (SWRLAB)[address] Chloride [Moles/Vol] 106 mmol/L Normal 98-107 [facility] Comment on above: Performed By: #### L AB15 ####Digital Watch Assembler: VIVIAN PANTOJA ([id number])[facility]ENTERB[facility] [place] (SWRLAB)[address] [place] [address] [place] CO2 [Moles/Vol] 27 mmol/L Normal 23-31 [facility] Comment on above: Performed By: #### L AB15 ####Digital Watch Assembler: VIVIAN PANTOJA ([id number])[facility]ENTERB[facility] [place] (SWRLAB)[address] [place] [address] [place] Creatinine [Mass/Vol] 1.25 mg/dL High 0.57-1.11 [facility] Comment on above: Performed By: #### L AB15 ####Digital Watch Assembler: VIVIAN PANTOJA ([id number])[facility]ENTERB[facility] [place] (SWRLAB)[address] [place] [address] [place] GLOMERULAR FILTRATION RATE ML/MIN/1.73 SQ M.PREDICTED 45.6 mL/min/1.73m*2 Low >60.0 [facility] Comment on above: Result Comment: Calc ulation based on the Chronic Kidney Disease Epidemiology Collaboration (CKD-EPI) equation refit without adjustment for race Performed By: #### L AB15 ####Digital Watch Assembler: VIVIAN PANTOJA ([id number])[facility]ENTERBessy [place] (SWRLAB)[address] Glucose [Mass/Vol] 98 mg/dL Normal 82-115 [facility] Comment on above: Performed By: #### L AB15 ####Digital Watch Assembler: VIVIAN PANTOJA ([id number])[facility]ENTERB[facility]y [place] (SWRLAB)[address] Potassium [Moles/Vol] 4.5 mmol/L Normal 3.5-5.1 [facility] Comment on above: Result Comment: [facility] potassium values may be up to 0.5 mmol/L lower than serum values. Performed By: #### L AB15 ####Digital Watch Assembler: VIVIAN PANTOJA ([id number])[facility]ENTERBessy [place] (SWRLAB)[address] Sodium [Moles/Vol] 142 mmol/L Normal 136-145 [facility] Comment on above: Performed By: #### L AB15 ####Digital Watch Assembler: VIVIAN PANTOJA ([id number])[facility]ENTERB[facility] [place] (SWRLAB)[address] Urea nitrogen [Mass/Vol] 21 mg/dL Normal 9-23 [facility] Comment on above: Performed By: #### L AB15 ####Digital Watch Assembler: VIVIAN PANTOJA ([id number])[facility]ENTERB[facility] [place] (SWRLAB)[address] Basic metabolic 1998 panelon 12-19-2024 Anion gap [Moles/Vol] 9 mmol/L 3 - 13 mmol/L [facility] Calcium [Mass/Vol] 10.2 mg/dL High 8.8 - 10. 0 mg/dL [facility] Chloride [Moles/Vol] 106 mmol/L 98 - 10 7 mmol/L [facility] CO2 [Moles/Vol] 27 mmol/L 23 - 31 mmol/L [facility] Creatinine [Mass/Vol] 1.25 mg/dL High 0.57 - 1.11 mg/dL [facility] GFR/1.73 sq M.predicted (S/P/Bld) [Vol rate/Area] 45.6 mL/min Low - PINF [facility] Comment on above: Calculation based on the Chronic Kidney Disease Epidemiology Collaboration (CKD-EPI) equation refit without adjustment for race Glucose [Mass/Vol] 98 mg/dL 82 - 115 mg/dL [facility] Potassium [Moles/Vol] 4.5 mmol/L 3.5 - 5.1 mmol/L [facility] Comment on above: Plasma potassium imer ues may be up to 0.5 mmol/L lower than serum values. Sodium [Moles/Vol] 142 mmol/L 136 - 145 mmol/L [facility] Urea nitrogen [Mass/Vol] 21 mg/dL 9 - 23 mg/dL [facility] C-REACTIVE PROTEINon 025 CRP [Mass/Vol] 5.4 mg/L High <5.0 [facility] Comment on above: Performed By: #### L [id number] ####Digital Watch Assembler: VIVIAN PANTOJA ([id number])[facility] [employer] ResearchARMINDA (VamoRLAB)[address] [place] [address] C-reactive proteinon 025 CRP [Mass/Vol] 5.4 mg/L High NINF - 5.0 mg/L [facility] ESR (Bld) [Velocity]Ordered By: Pito Whitley on 12-19-2024 Interpretation and review of laboratory results Normal [facility] No Panel Informationon 12-19 Interpretation and review of laboratory results Abnormal [facility] SEDIMENTATION RATE, AUTOMATE Don 12-19-2024 SEDIMENTATION RATE, ERYTHROCYTE 3 mm/hr Normal 0-20 [facility] Comment on above: Performed By: #### L [id number] ####Digital Watch Assembler: VIVIAN PANTOJA ([id number])[facility] [employer] ResearchAN (VamoRLAB)[address] [place] [address] Sedimentation rate, automate dOrdered By: Pito Whitley on 12-19-2024 ESR (Bld) [Velocity] 3 mm/h [facility] [employer] 36on 12-18-2024 36 Noted; thank you. Reviewed chart, there is an encounter with PCP office-it appears they have obtained sleep study for this and they are working on updating OV note or scheduling her for an appt for assessing need for oxygen. [facility] 36 [place] [address] Baltazar sent in an alternative inhaler for pt on 12/15 [place] [address] Ordered CPAP supplie s for Dr. Ibarra patient. Reviewed sleep study. I am not sure what other questions patient has regarding Dulera? Please clarify [place] [id number] Will you update nancy ent office notes on the Oxygen. [place] [address] Sleep study printed and on Dr Diane glaser. [place] [address] Triage message revie wed with clinical staff. [address] 12-15-[address] 12-14-[address] 12-13-2024 36 LVM for patient to c all pharmacy and ask what other inhaler would they recommend. [facility] 36 [facility] [id number] 12-12-2024 [id number] [place] [address]on 12-12-2024 36 TC to Pt no answer L VM explaining that lab was ordered and she can go to [facility] or [facility] [employer] lab to have this completed [place] [address]on 12-11-2024 36 [place] [address] Message released to patient as written. Patient's further questions if applicable: Please call [facility] to explain the recommended orders. Were all questions from office addressed or relayed to the patient from encounter: Yes [facility] 36 TC to Pt no answer LVM [place] [address]on 12-08-2024 36 ----- Message from A liset Bhardwaj PA-C sent at 12/08/2024 2:49 PM EDT ----- Let her know Dr. Moon recommends ESR CRP- if agreeable I will place orders. Thanks TC to Pt no answer LVM [facility] 36 TC to [facility] No answer LVM [place] [address]on 12-07-2024 36 1 do we have a copy of her old sleep study. We need this for the records. #2 once you give me a copy of the sleep study I can put in orders for a CPAP machine. We need those records first. Has she used [facility] before? Normal [facility] 36 Normal [facility] 36 TC to [facility] no answ er LVM Normal [facility] 29on 12-06-2024 29 Addended by: MIGUEL AMEZCUA on: 12/19/2024 09:36 AM Modules accepted: Orders Normal [facility] 36on 12-06-2024 36 Normal [facility] 36 Noted; scheduled wit h LOVELY Bacon today at 1:[address] Moon. Normal [facility] 3712-06-2024 37 -[facility], please take your furosemide once daily -Stop the potassium pills and start a new medication called spironolactone 25 mg daily -Labs in [address] [facility] Progress Noteon 12-06-2024 Progress Note Normal [facility] 36on 12-05-2024 36 Noted. Normal [facility] US Heart TransthoracicOrdere d By: Ino Jacques on 12-04-2024 Aortic Sinus Valsalva 3 cm [employer] Phone: Aortic Sinus Valsalva Index 1.6 cm/m2 [employer] Phone: Aortic valve Mean systole pressure gradient by US.doppler derived full Bernoulli 8 mmHg [employer] Phone: Aortic valve Orifice area by US 2.5 cm2 [employer] Phone: Aortic valve Peak systolic flow by US.doppler 1.3 m/s [employer] Phone: AR Max Velocity PISA 4.5 m/s [facility] Phone: AR PHT 330.2 ms [employer] Phone: Ascending Aorta 3.1 cm [employer] Phone: Ascending Aorta Index 1.65 cm/m2 [employer] Phone: AV Area by Peak Velocity 1.2 cm2 [employer] Phone: AV Area by VTI 1.2 cm2 [facility] [employer] Work Phone: AV Peak Gradient 13 mmHg [facility] [employer] Work Phone: AV Peak Velocity 1.8 m/s [facility] [employer] Work Phone: AV Velocity Ratio 0.44 [facility] [employer] Work Phone: AV VTI 34.1 cm [facility] [employer] Work Phone: [place]/BSA Peak Velocity 0.6 cm2/m2 [facility] [employer] Work Phone: [place]/BSA VTI 0.6 cm2/m2 [facility] [employer] Work Phone: E/E' Lateral 21.11 [facility] [employer] Work Phone: E/E' Ratio (Averaged) 21.11 [facility] [employer] Work Phone: E/E' Septal 21.11 [facility] [employer] Work Phone: Est. RA Pressure 8 mmHg [facility] [employer] Work Phone: Fractional Shortening 2D 19 % 28 - 44 % [facility] [employer] Phone: Interpretation and review of laboratory results Abnormal [facility] Phone: IVC Diameter 2.7 cm [facility] Phone: IVSd 1.1 cm Abnormal 0.6 - 0.9 cm [facility] [employer] Phone: [place] Diameter 6.4 cm [facility] [employer] Phone: LA Size Index 3.4 cm/m2 [facility] Phone: LA Volume 2C 157 mL Abnormal 22 - 52 mL [facility] Work Phone: LA Volume 4C 164 mL Abnormal 22 - 52 mL [facility] Work Phone: LA Volume A/L 167 mL [facility] Work Phone: LA Volume BP 161 mL Abnormal 22 - 52 mL [facility] [employer] Phone: [place] Volume Index 2C 84 mL/m2 Abnormal 16 - 34 mL/m2 [facility] Work Phone: [place] Volume Index 4C 87 mL/m2 Abnormal 16 - 34 mL/m2 [facility] [employer] Work Phone: [place] Volume Index A/L 89 mL/m2 16 - 34 mL/m2 [facility] [employer] Work Phone: [place] Volume Index BP 86 ml/m2 Abnormal 16 - 34 ml/m2 [facility] [employer] Work Phone: Left ventricular Ejection fraction by US.2D+Calculated by biplane method of disks 53 % Abnormal 55 - 100 % [facility] [employer] Work Phone: LV E' Lateral Velocity 9 cm/s [facility] Work Phone: LV E' Septal Velocity 9 cm/s [facility] [employer] Work Phone: LV EDV A2C 101 mL [facility] [employer] Work Phone: LV EDV A4C 68 mL [facility] [employer] Work Phone: LV EDV BP 83 mL 56 - 104 mL [facility] [employer] Work Phone: LV EDV Index A2C 54 mL/m2 [facility] [employer] Work Phone: LV EDV Index A4C 36 mL/m2 [facility] [employer] Work Phone: LV EDV Index BP 44 mL/m2 [facility] [employer] Work Phone: LV Ejection Fraction A2C 46 % [facility] [employer] Work Phone: LV Ejection Fraction A4C 60 % [facility] [employer] Work Phone: LV ESV A2C 54 mL [facility] [employer] Work Phone: LV ESV A4C 27 mL [facility] [employer] Work Phone: LV ESV BP 39 mL 19 - 49 mL [facility] [employer] Work Phone: LV ESV Index A2C 29 mL/m2 [facility] [employer] Work Phone: LV ESV Index A4C 14 mL/m2 [facility] [employer] Work Phone: LV ESV Index BP 21 mL/m2 [facility] [employer] Work Phone: LV Mass 2D 181.9 g Abnormal 67 - 162 g [facility] [employer] Work Phone: LV Mass 2D Index 96.8 g/m2 Abnormal 43 - 95 g/m2 [facility] [employer] Work Phone: LV RWT Ratio 0.42 [facility] [employer] Work Phone: LVIDd 4.8 cm 3.9 - 5.3 cm [facility] [employer] Work Phone: LVIDd Index 2.55 cm/m2 [facility] [employer] Work Phone: LVIDs 3.9 cm [facility] [employer] Work Phone: LVIDs Index 2.07 cm/m2 [facility] [employer] Work Phone: LVOT Cardiac Output 4.2 liter/minute [facility] [employer] Work Phone: LVOT Diameter 1.8 cm [facility] [employer] Work Phone: LVOT Mean Gradient 2 mmHg [facility] [employer] Work Phone: LVOT Peak Gradient 3 mmHg [facility] [employer] Work Phone: LVOT Peak Velocity 0.8 m/s [facility] [employer] Work Phone: LVOT Stroke Volume Index 21.6 mL/m2 [facility] [employer] Work Phone: LVOT SV 40.7 ml [facility] [employer] Work Phone: LVOT VTI 16 cm [facility] [employer] Work Phone: LVOT:AV VTI Index 0.47 [facility] [employer] Work Phone: LVPWd 1 cm Abnormal 0.6 - 0.9 cm [facility] [employer] Work Phone: MR VTI 127.4 cm [facility] [employer] Work Phone: MV A Velocity 0.24 m/s [facility] [employer] Work Phone: MV E Velocity 1.9 m/s [facility] [employer] Work Phone: MV E Wave Deceleration Time 292.1 ms [facility] [employer] Work Phone: MV E/A 7.92 [facility] [employer] Work Phone: MV Nyquist Velocity 36 cm/s [facility] [employer] Work Phone: MV Regurg Velocity PISA 4.8 m/s [facility] [employer] Work Phone: Pulmonary Artery EDP 18 mmHg [facility] [employer] Work Phone: Pulmonary Artery EDP 15 mmHg [facility] [employer] Work Phone: PV AT 79.9 ms [facility] [employer] Work Phone: RA Area 4C 33 mL [facility] [employer] Work Phone: RA area length vol 120 mL [facility] [employer] Work Phone: RV Basal Dimension 3.6 cm [facility] [employer] Work Phone: RV Free Wall Peak S' 14 cm/s [facility] [employer] Work Phone: RV Longitudinal Dimension 8.2 cm [facility] [employer] Work Phone: RV Mid Dimension 2.9 cm [facility] [employer] Work Phone: RVSP 64 mmHg [facility] [employer] Work Phone: Sinotubular Junction 2.3 cm [facility] [employer] Work Phone: TAPSE 1.4 cm Abnormal 1.7 cm [facility] [employer] Work Phone: TR Max Velocity 3.73 m/s [facility] [employer] Work Phone: TR Peak Gradient 56 mmHg [facility] [employer] Work Phone: TR Peak Velocity PISA 3.7 m/s [facility] Work Phone: TR VTI 109.5 cm [facility] [employer] Work Phone: TV EROA 0.3 cm2 [facility] [employer] Work Phone: TV Nyquist Velocity 35 cm/s [facility] [employer] Work Phone: [facility] [employer] Work Phone: US Heart Transthoracicon Left Ventricle: Left ventricle size is normal. Normal wall thickness. Mildly reduced left ventricular systolic function. The EF by visual approximation is 45%. Global hypokinesis present. Grade II diastolic dysfunction with increased LAP. Right Ventricle: Right ventricle size is normal. Low normal systolic function. Aortic Valve: Trileaflet. Mildly thickened cusps. Mildly calcified cusps. Moderate (2+) regurgitation with a centrally directed jet. Moderate stenosis of the aortic valve. AV mean gradient is 8 mmHg. AV peak velocity is 1.8 m/s. LVOT:AV VTI Index is 0.47. AV area by continuity VTI is 1.2 cm2. Stroke volume index is 21.6 mL/m2. Mitral Valve: Mildly thickened leaflets. Mildly calcified leaflets. Annular dilation. Moderate (2+) regurgitation with a posterior directed jet. Tricuspid Valve: Moderately severe (3+) regurgitation with jet direction toward the septum. Severely elevated RVSP. Est RA pressure is 8 mmHg. RVSP is 64 mmHg. Left Atrium: Left atrium is severely dilated. LA Vol Index A/L is 89 mL/m2. Interatrial Septum: Probable stretched PFO present with a left to right shunt viewable by spectral Doppler and color Doppler. Right Atrium: Right atrium is severely dilated. Pericardium: Moderate (1-2 cm) localized pericardial effusion present around the posterior and lateral left ventricle and right atrium. Features indicating an absence of cardiac tamponade are present. Evidence includes no chamber collapse. Findings do not support cardiac tamponade. Overall size of effusion however, is likely small, none seen adjacent to RV or LV apex. Left pleural effusion. Compared to 04/2024 there is a decrease in LVEF, new pericardial effusion. Left Ventricle Left ventricle size is normal. Normal wall thickness. Mildly reduced left ventricular systolic function. The EF by visual approximation is 45%. Global hypokinesis present. Grade II diastolic dysfunction with increased LAP. Right Ventricle Right ventricle size is normal. Low normal systolic function. Left Atrium Left atrium is severely dilated. LA Vol Index A/L is 89 mL/m2. Right Atrium Right atrium is severely dilated. IVC/SVC IVC diameter is dilated and decreases greater than 50% during inspiration; therefore the estimated right atrial pressure is intermediate (~8 mmHg). Mitral Valve Mildly thickened leaflets. Mildly calcified leaflets. Annular dilation. Moderate (2+) regurgitation with a posterior directed jet. No stenosis noted. Tricuspid Valve Valve structure is normal. Moderately severe (3+) regurgitation with jet direction toward the septum. Severely elevated RVSP. Est RA pressure is 8 mmHg. RVSP is 64 mmHg. Aortic Valve Trileaflet. Mildly thickened cusps. Mildly calcified cusps. Moderate (2+) regurgitation with a centrally directed jet. Moderate stenosis of the aortic valve. AV mean gradient is 8 mmHg. AV peak velocity is 1.8 m/s. LVOT:AV VTI Index is 0.47. AV area by continuity VTI is 1.2 cm2. Stroke volume index is 21.6 mL/m2. Pulmonic Valve Valve structure is normal. Mild (1+) regurgitation. Ascending Aorta Normal sized sinuses of Valsalva and ascending aorta. Pericardium Moderate (1-2 cm) localized pericardial effusion present around the posterior and lateral left ventricle and right atrium. Features indicating an absence of cardiac tamponade are present. Evidence includes no chamber collapse. Findings do not support cardiac tamponade. Overall size of effusion however, is likely small, none seen adjacent to RV or LV apex. Left pleural effusion. Septum Probable stretched PFO present with a left to right shunt viewable by spectral Doppler and color Doppler. Study Details Image quality: adequate. Additional technique includes myocardial strain. Heart rate: 108 bpm. Blood pressure: 172/94 mmHg. The underlying ECG rhythm was atrial fibrillation. No contrast was given. CV CPACS Progress Noteon 11-27-2024 Progress Note Normal [facility] Progress Note BP is well controlle d. Continue current management plan. Normal [facility] Progress Note Pt was left a detail ed message and to call the office if any questions. Normal [facility] 36on 11-21-2024 36 Patients office note s 9.9.[address] results were faxed ([phone]) to Dr. Chau at the [facility]. Normal [facility] Progress Noteon 11-21-2024 Progress Note Normal [facility] 36on 11-20-2024 36 Last OV:08/15/24 Scheduled:no apt Normal [facility] 36on 11-17-2024 36 Normal [facility] BCR-ABL1 t(9;22), BloodOrder ed By: Ramon Stockton on 11-17-2024 BCR-ABL1 TRANSLOCATION T(9;22) Not detected [facility] REVIEWED BY JERMAINE aSwyer M B (ASCP)[facility] CT Abdomen and Pelvis WO and W contrast Yisel 11-17-2024 1. Cardiomegaly with small to moderate pericardial effusion measuring up to 2.1 cm in thickness. 2. Diffuse nonspecific mosaic attenuation involving both lungs. Some component of these findings likely related to mild pulmonary vascular congestion. Other etiologies include chronic small airways disease/infection, air trapping, and other etiologies such as hypersensitivity pneumonitis. 3. Mild hepatomegaly. 4. Splenomegaly, slightly progressed. 5. Indeterminant left adrenal nodule, likely benign given stability dating back to 2018. 6. Multilevel compression fracture deformities in the thoracic spine and lumbar spine similar which appear new and/or progressed. Findings are most pronounced at T12 with there is some associated retropulsion. 7. Unchanged right renal cystic lesion probably a hemorrhagic or proteinaceous cysts. 8. Body wall edema with more localized ill-defined stranding/edema in the ventral lower abdominal/pelvic wall. Somewhat more pronounced findings present on prior studies. Though nonspecific, correlate for possible cellulitis. 9. Additional chronic findings including cholelithiasis, mild pulmonary trunk dilatation, and mild atherosclerosis. Report Dictated on Electronically Signed By: Laurent Mcintosh MD Electronically Signed Date/Time: 11/17/2024 12:01 PM [facility] 4Home RADIOLOGY SYSTEM [facility] 1950 [id number] Exam Date/Time: 11/16/2024 09:28 Procedure: CT CHEST ABDOMEN PELVIS W CONTRAST Ordering Provider: MCCANN TERESA Reason For Exam: 5cm left adrenal nodule, cough, weight loss, anemia, leukocytosis CT CHEST, ABDOMEN, AND PELVIS, WITH INTRAVENOUS CONTRAST CLINICAL INDICATION: 5cm left adrenal nodule, cough, weight loss, anemia, leukocytosis. COMPARISON: Correlation is made to several prior exams, most recently CT abdomen pelvis 04/27/2024, CT 06/07/2017. TECHNIQUE: Transaxial sequence through the chest, abdomen and pelvis with 3 mm reconstruction following dynamic intravenous infusion of 75 mL of Isovue-370 intravenous contrast media. Enteric contrast was administered. Coronal and sagittal reconstructions included. Dose reduction was employed with automated exposure control. FINDINGS: Limitations: Motion and streak artifact. CHEST: Heart/mediastinum: Cardiomegaly with multichamber enlargement. Thoracic aorta is normal in caliber. Pulmonary trunk is mildly dilated measuring 3.2 cm. Coronary artery calcifications. A few prominent and borderline enlarged mediastinal and perihilar lymph nodes. Small to moderate pericardial effusion measuring up to 2.1 cm in thickness. Lungs/pleura: Scattered areas of mosaic attenuation throughout both lungs. Findings most pronounced at the lung bases. Streaky and bandlike bibasilar atelectasis. Prominence of the pulmonary vasculature. No consolidation, pleural effusions, or pneumothorax. Osseous structures: Degenerative spondylosis in the visualized spine. Moderate to severe compression fracture deformity T12 with mild retropulsion similar to slightly progressed from prior. Very slight superior endplate compression fracture deformity T5 age indeterminant Soft Tissues: No significant soft tissue abnormality detected. ABDOMEN AND PELVIS: Liver: Liver appears mildly enlarged. Probable hepatic steatosis. Gallbladder/Biliary tree: Gallbladder appears distended and contains several small gallstone similar to prior studies. No biliary ductal dilatation. Spleen: Enlarged measuring at least 15.9 cm, slightly progressed from prior. Pancreas: Homogeneous without adjacent stranding or other significant abnormality. Adrenals: Right adrenal gland appears within normal limits. Heterogeneous left adrenal lesion measures 4.0 x 2.4 cm. This is fairly similar to 2018 exam. Kidneys/pelvic organs: Symmetric contrast enhancement without obstructive uropathy. No nephrolithiasis. Indeterminant 10 mm cystic lesion right kidney unchanged from prior study. Urinary bladder is collapsed limiting evaluation. No definitive abnormality in the uterus by CT. GI tract: Trace sliding-type hiatal hernia. Small duodenal diverticulum. No dilated loops of small bowel. Appendix not discretely identified. Colonic diverticulosis predominantly in the sigmoid colon without acute diverticulitis. Peritoneal cavity/retroperitoneum: No pneumatosis or pneumoperitoneum. No significant ascites or focal fluid collection. Prominent and borderline enlarged iliac chain lymph nodes. Prominent periportal and gastrohepatic lymph nodes. Vasculature: Mild to moderate mixed atherosclerotic plaque in a normal caliber abdominal aorta. Major venous structures enhance normally Osseous structures: Superior endplate compression fracture L2 is similar to prior. Slight superior endplate compression fracture L1 appears new. Superior endplate compression fracture L4 slightly progressed. Mild to moderate compression fracture deformity L3 slightly progressed. Degenerative spondylosis in the sacroiliac joints and right and left hip. Soft Tissues: Body wall edema with more localized ill-defined stranding/edema in the ventral lower abdominal/pelvic wall. [facility] RADIOLOGY SYSTEM Teja Mcintosh MD - 11/17/2024 Patient Name: [facility] BAKER : 1950 [id number] Exam Date/Time: 11/16/2024 09:28 Procedure: CT CHEST ABDOMEN PELVIS W CONTRAST Ordering Provider: MCCANN TERESA Reason For Exam: 5cm left adrenal nodule, cough, weight loss, anemia, leukocytosis CT CHEST, ABDOMEN, AND PELVIS, WITH INTRAVENOUS CONTRAST CLINICAL INDICATION: 5cm left adrenal nodule, cough, weight loss, anemia, leukocytosis. COMPARISON: Correlation is made to several prior exams, most recently CT abdomen pelvis 04/27/2024, CT 06/07/2017. TECHNIQUE: Transaxial sequence through the chest, abdomen and pelvis with 3 mm reconstruction following dynamic intravenous infusion of 75 mL of Isovue-370 intravenous contrast media. Enteric contrast was administered. Coronal and sagittal reconstructions included. Dose reduction was employed with automated exposure control. FINDINGS: Limitations: Motion and streak artifact. CHEST: Heart/mediastinum: Cardiomegaly with multichamber enlargement. Thoracic aorta is normal in caliber. Pulmonary trunk is mildly dilated measuring 3.2 cm. Coronary artery calcifications. A few prominent and borderline enlarged mediastinal and perihilar lymph nodes. Small to moderate pericardial effusion measuring up to 2.1 cm in thickness. Lungs/pleura: Scattered areas of mosaic attenuation throughout both lungs. Findings most pronounced at the lung bases. Streaky and bandlike bibasilar atelectasis. Prominence of the pulmonary vasculature. No consolidation, pleural effusions, or pneumothorax. Osseous structures: Degenerative spondylosis in the visualized spine. Moderate to severe compression fracture deformity T12 with mild retropulsion similar to slightly progressed from prior. Very slight superior endplate compression fracture deformity T5 age indeterminant Soft Tissues: No significant soft tissue abnormality detected. ABDOMEN AND PELVIS: Liver: Liver appears mildly enlarged. Probable hepatic steatosis. Gallbladder/Biliary tree: Gallbladder appears distended and contains several small gallstone similar to prior studies. No biliary ductal dilatation. Spleen: Enlarged measuring at least 15.9 cm, slightly progressed from prior. Pancreas: Homogeneous without adjacent stranding or other significant abnormality. Adrenals: Right adrenal gland appears within normal limits. Heterogeneous left adrenal lesion measures 4.0 x 2.4 cm. This is fairly similar to 2018 exam. Kidneys/pelvic organs: Symmetric contrast enhancement without obstructive uropathy. No nephrolithiasis. Indeterminant 10 mm cystic lesion right kidney unchanged from prior study. Urinary bladder is collapsed limiting evaluation. No definitive abnormality in the uterus by CT. GI tract: Trace sliding-type hiatal hernia. Small duodenal diverticulum. No dilated loops of small bowel. Appendix not discretely identified. Colonic diverticulosis predominantly in the sigmoid colon without acute diverticulitis. Peritoneal cavity/retroperitoneum: No pneumatosis or pneumoperitoneum. No significant ascites or focal fluid collection. Prominent and borderline enlarged iliac chain lymph nodes. Prominent periportal and gastrohepatic lymph nodes. Vasculature: Mild to moderate mixed atherosclerotic plaque in a normal caliber abdominal aorta. Major venous structures enhance normally Osseous structures: Superior endplate compression fracture L2 is similar to prior. Slight superior endplate compression fracture L1 appears new. Superior endplate compression fracture L4 slightly progressed. Mild to moderate compression fracture deformity L3 slightly progressed. Degenerative spondylosis in the sacroiliac joints and right and left hip. Soft Tissues: Body wall edema with more localized ill-defined stranding/edema in the ventral lower abdominal/pelvic wall. IMPRESSION: 1. Cardiomegaly with small to moderate pericardial effusion measuring up to 2.1 cm in thickness. 2. Diffuse nonspecific mosaic attenuation involving both lungs. Some component of these findings likely related to mild pulmonary vascular congestion. Other etiologies include chronic small airways disease/infection, air trapping, and other etiologies such as hypersensitivity pneumonitis. 3. Mild hepatomegaly. 4. Splenomegaly, slightly progressed. 5. Indeterminant left adrenal nodule, likely benign given stability dating back to 2018. 6. Multilevel compression fracture deformities in the thoracic spine and lumbar spine similar which appear new and/or progressed. Findings are most pronounced at T12 with there is some associated retropulsion. 7. Unchanged right renal cystic lesion probably a hemorrhagic or proteinaceous cysts. 8. Body wall edema with more localized ill-defined stranding/edema in the ventral lower abdominal/pelvic wall. Somewhat more pronounced findings present on prior studies. Thoug (more content not included)... [place] CT Abdomen and Pelvis WO and W contrast IVOrdered By: Teja Mcintosh on 11-17-2024 [place] Work Phone: CT CHEST ABDOMEN PELVIS W CO NTRASTon 11-17-2024 CT CHEST ABDOMEN PELVIS W CONTRAST Normal [facility] CT Abdomen and Pelvis WO and W contrast Yisel 11-16-2024 Radiology Study observation (narrative) [facility] 36on 11-14-2024 36 Message left for pat ient to return call to office to set up an appointment with Dr. Mccann to review lab results. Normal [facility] 36 Normal [facility] Flow cytometryon 11-14-2024 Case Report Flow Cytometry Case: [id number] Authorizing Provider: Marion Mccann DO Collected: 11/09/2024 1508 Ordering Location: [facility] Oncology - Received: 11/09/[address] [place] [address] Pathologist: Rachel Avery MD MPH Specimen: Blood, Venous [facility] Disclaimer i4xfiKZxPEKasPRyBpFx MDAwX PInr3wlWLNxiVYqOvHzDiKuBj SwNjnitVXoEPFcZdIys3vmu80 8fCEna0jcFIGxYnB8qYStODSo M49zOFRYJ334YFWjWSvgq1lmz 0ZnNTYraQOcv1V5OLVYRBrkTA NYTWn0iApsP90gx2Q0MflbQ2u qDJHaXGQuI7VfCQ3bYOLfVbb2 XCW7WAK2GMDjTCAoG3MhYS2lA EOlvLDcQKe8k6sheCaxYWAcVZ V4t7nmEHoxdlTpGK7bhe0boKd 0h5smvuIjOVMtAVVnsCQLYTOy G1GboXmnTo5ltSi7nFdrZewwO LL3Duh8MO8ymv59ikb8mBmyQK GxxvxtYuW5XCrkYIQrofsrPUp 6NAnlHOXnaEK1SFBchYQqK0Ji JNNaIF5rrub4WEO5AVxuGIKvU mO0EBEraRWaYWVdiBegWEgil1 40KSO2IyDqVM5zF2Uwi1U7sW2 wvXHySRDxfKBeJzZhBVJefw7t yWZlHDmki7KpDTD1knO7nDIhz YOjBUWtKC42Cdwsg6TiMkscVK E7DQYokxUyd4Ird8qdWoTypzW wZ4whQ5ViUGFsCJDrKREaGbRm ksEsa3Img4AtnTIwpTx2j4niX NHnFSWkdLqpk7mtOWH0SUGcD7 A8oYJfs4ahHWscREZxoKJ2gxV 9ZOXthYBmE3BkzC3mCJTcUN1a min6r1cjJXW2GYpgXLZaVfF0j gU0WMGnrIPwLWAbaUxlRDujc8 93DPZ3JmAwFPPer7NlZ4UokRp iN40wzWasU32eJRZisJcioM5x cYeuyX6aJfGyMuVaZVcvlIbdd ZEclgslFSfcbwR4YOitrdhpXI RtUOqmT0ifOqMlYTAxlFtqJOy ds6MpPXAeZMTnDGFoIEsxA1kk zE3befqoUFyqQAQvtBrrd8cvN fMzqJM3BN2gbcMaIUPtkQhehw S2esJovIrcvO3dmW1jbQlmsH3 teOPiqHN9aoadYOfvLQNhwGQa xJyemxbhfIhipQhthihiqE5lE YG5lUFqHQF7eXBcJSDmCOXjLX OksH68ez9vzCOrbfVeE4VrT9W ggEPphKscZzknyYGepACoWq6p eTZaEH5iGLOjkRHvT0HrOH2oJ HBhclxwYXIgVGhlIHVzZSBvZi OdgdPxy6MqvT9lLWBwZLGmWA2 9mkBwbsR8jOCnTWTupuPdlBUm dHMgaXMgcmVndWxhdGVkIGFzI IHmEWVcZZm9qHQpc7AkB9ebiX XpwoHmQ5JclTCaUGFKZH6hPXs it7WsoGIjlIXeu8CeIKYbYHOj bD2rBDPbFL4nNYPwMLzbHLDrg wSxzw2wzvPtJEXdZLErI1Njft tljMgaolMeNALuub0xolUwQWG 5IHRoZSBjbGluaWNhbCBsYWJv rfR2d3UyFCJab7AhU0OwzWLuH GVcbERzIPO7e1UngH3cXQylnP HkAMGtUF9fjGMuNHJjZOVgEOC sUTGdWzsgoQarVEGHHNQra7Gp RM7dRQOnxDmvAWIjgF0yd6KfF WVgg26cWKDTMEssZICqAOPBLX EgaGFzIGRldGVybWluZWQgdGh kxOCauTMuLPIcPCHlZS3mKRKq mtDjrBAub2LeeBEbkoOzn6Faj eCwXXBlOTO4MxHquQBgQAAghy GGcZjfhF1prN3fa7RsgW6tRUf yjpYffFDtAp5qlKJzEX7uVOIp cmFmZmluIGVtYmVkZGVkIHRpc 9T9TG7yUYRaca0ocwafzXJkbW 6liQOeqkCmQF0sGQ2rG3H8bRZ oGUGzpdYbq7xqCYe1fCKiNHGk mEHjaNYpEcvqRHY9FSKfAKO4u hPsmnAyGJQciEunoYW7hKEeYI GlEXRhAMKvCZ63L0Xte3OjX8s tVQ04WISwNVIqZWSutjXlj7pp HBElo5rqGKCagEAcO2LlVKPfx UBvpfthIoFiVDB4QUCpNDU0tF ZfFUXpO2OujHXunEChaA80YC8 dwWN6QX7iJHF4JZtuaS2tOpAJ zZ41xh5tiFG2q2KiJZ3qY1DkU QUhb5M3ocRbWDCpGZ3vxKMqCD VuIHZhbGlkYXRlZCBvbiBkZWN tuTMvHppfJEB7eUXpxGFlUfAW HVM8sTVsHTPqq2MaIMYgORYkb kJyfnMfJGMvGSR7sMFyFPGktI Tfi20rX2h0BS2yqYqlWWKpuDK wZJMch1NzlHNelPn2iFNxUjKk AQwrDNSwEUrxsTo3fST6UN2pV MSwK4JrI6qtxPExXYFePNRbcN Qogb6erFJvwX== [facility] Interpretation p5dcuGJqZVAviNLwMYKq MVxhb rNpLZVgdEYtI6GfeqyxSAabIN 9cSH6klCylzFTcxQBjUOWbScN ea7jxs675aYZdf4ayYKCREBni QDOISQe7qDywI67bx7L1HkxlT 34ufRQvXAE5WCYlVETkoUMfYC OnERW0FXKzoEZkK2jqXRCgBY5 xzdqzHMavLPywJJUylXM6HAHx aCVrX3WmXXBgXTqbVYFcvie4W eOaWo1ucICjoFaoPJvuGJGbYR BjGVhoREWgIzGgDEgRF62TN9f VLpJHOaVZMATFWXItDS2PZ6CN ISQVOXLRERCtI0pAD8NGPKGmA 0EDBOE8ZCKPTnEGOz0GUlhmWv 1LXE4MUWaZTCEpEuGXYHeNU63 nrLIqGWHkdxKLLzNFFk1PXNYR XQZHP0PHXSfeT5D1FHvcS2XlX ELICKJaBUDAWRaaE3T0AWFPLX okIHRDBTqoE3SaPPfuW9DqOKJ sIENEMTksIENEMjAsIENEMjMs IENEMjUsIENEMzgsIENENTYsI XZHJXjwBKYDFAItHvkbP8KsTO IvYWMWUu75OMIdS3DhkCLuFYF TUV8mGLYwOTWpvpkuLZSlMDfN Po7EYSIURaRLg10jT7h5SGCvP AMiJEhzM4BrBIReGASnYCneYJ G8tOIaRGXfrMiqx1IsyXaey2I px3J8KVUnFLItOG94lFrhYXxw cgPec4lfWkEWQFT9OcZnEV58I SBvZiBldmVudHMgYXJlIGlkZW 76hOGvIUBoMKGwfQG9sKGdHXy 3aPXlz4D6xEBqOJI6TBTWZFKk QY0dWGCvKSExa9NsoKJwfaMpx HMvCWE9PUXoh3WmI1LpOZDfPK Jhz7XlsEgupPrkA0b4BJVeRAL nBXDyC7SpgEUcGHcfdDlpxOzw HKIcmRhdp5ilWnUyv7BcXCztd R2ojO2dzNlrss84oGQwEuMbs3 SzvCb9ZJAyw0TuV0XjPFohH2F qTOhukrIsxGWliAXoK8TrDdgq nW7rLYYukOPtA7CaAVyiE1H9C KccQw7UJahywwXqBBHcbnAmTh 4vVXDDXDplF8VgSBrlL5GrOXX sIENEMjUsIENEMTAzLCBDRDIw TIypp9o7yQVgo3w8yQuroNMeq 3VyZmFjZSBsaWdodCBjaGFpbi ZnkKTmLMItpI0fVdQXSZJbhIw oIIKgV894vkBvIp3lYEs4WITs JzHvnQ2wbJ1ikOXvnlI8yAObO JSkKKUqYOSgzQFkMCZGSHO0hu XJYUllnuJ3lR3cm9LhXE98JpU MeSEuVWEwmaLlctVlt3JxKA2c GADnF4QldJRictFbF3Rrlf3qE PSlclksKVJcB88SISBIXKddVL wyFKJjvjlfkNHdBSksDropm2A ee14aYUWfdQVweuD9kVX7YRUe Z37wY0VjhzWznVo4SqLeUA0gc 7Y9pWXoMFMxIPRbuwOnWVFsMU KiEELbgdVhpkCxrxXjr7i1oKY IAgOuMFW5SEmwa7o7yCPcC4Uz l2jjysRxUSThpu2epJKyWQotS bE5rX4wMOWdBCIqwKDcuIfba2 1mGbGmfqTrrOogqLqxgs1sG5S wixOvp6S0rMIgSHTma4qhk7Jo QBHsi82ftVUcoVGcjZ0rQYMuk 95dDQ5rIQF3r48ezZjtYO18E7 tacL7oVZJltzjoICJxB7AhiuX vfEtcjAleZEIhyjQeveegKI1h PRZlocXpf7WfygQquO4sj1O9m W8lzLIdYY74UN9knoLliwnfUQ Vsve6iAr2gkUTyzOZgyHXsPEH uZCBhdHlwaWNhbCBncmFudWxv V9y2RALsGMM1yZYqfoIuhqCgI 32xL8HaqfnqOeCjj7UyeU3gQV RorVlvReExeAYgf1V4d9DjHPU 1yBSgs5zvFTOrkFIlfZzghH7c ki5bbLUwomR9wSHnMM5yl7RjK CMwPKUvnPEpBQMuFZSpna5bmK WqnRegdG1ax32mB4k0tAVekNQ 0r5RmsQLpFTZFMY8jz2Q1KHAk FZRuOFfqxwUfgnUvPABoo60vb WLpkSQdPqZaxS2yzJ5wUGUhrK VnbIV6KUSlDSPrSV3enQ7fYJP of9IwPOMep26vt8e1nQEwTRAv oGs2QBWgnyLjFE9gxHVhxEdmQ ZNjn3Wbi0Tiuo6rlGJiVOTrln KJQE7bjDorWIMjg0UfsjdsRY6 5MPdfaLPeNkpLMQKejhRlr9Ym At8xQDEcPGStu3soWoltzPL1F FkdYYQvN11bsTZmAERsITLbhd BlaVL2jUBkLHU8RAi3POKkn19 olITuW3aaxvenQWboyHYkmoMb Y9O1LRFkFRFnpoduJHZ9 [facility] h0hlpUEsWMQfyOEOUSMb MDRcY R8fwIdwhHp6yXbxBOXjdjX9fE YcWNczn2yxPNT3q2vxexWCQlu aZALoWY7aKJsuQIZrAX2qIbJc XGRlZmYxXHBhcGVydzEyMjQwX XWfiIVsmOM1ZIAvQJ2fkjvtNH kyQShfINCvwaH1AQSgkHEgP3H yDITtNT9wqlgbPNL9ALZIDrbp Nc6ppOAieSCWYateRjMsQuDqG KEuKZYcQLFyj1bwhnTQwlssfI l9WBn2GFKoNSJnlHMkh5F8QKv ud4fzr4VxS8Nnn1BcFCy6vY8S VjyqDCS1AFYQDtomMnapwKflj 2VjdCBcXHNnIFxcaWQgNTEwMD IhTOjqFdWJHySwMgT6Mlz7Guv 9KsH6KWx6YQWRYGDwDta1LjAd XTh4WSb6JVhzdbufGMk5YDUaK UcaePNtMB8okYrwIhqqeKtqg5 VjdCBcXHNnIFxcaWQgNTEwMDI bDCnfViZHLaAnWgU1Kep1Imd3 FnG3YNu0AVRZDuNmClYsGPFsH sF2HoCnNWn3ZZc4HJjKRjL2Oj l4RgTcOmAsGOPfGSUkTYcwqJQ cXHQgMiBcXHNzIDMgXFxmbCBc WZ6upQzmZWYeCY9LWYUeKZyvG ZDajINICGR4DZ5oFXYHHrvxfF ZaVADuVBoinTBbH2siHzIbAnZ mIeObOYxldv70ACO5v7gubCUp QIvkJajrkKRovmV5WIhUMSZCX ZaOBqMwLA0hFCpTG3ULTDzYIi iiVNnmBzu9WCkmcDbfJxxmdxX igGOrYxOKqY9cCDajNcifpAY7 IWwnUqomxC4jdSRDZOKALtpWA ywubjPnGI2NMTJZLR0WqGTeFN KwK5byuXQ3s0xlpSVfd4q0BMz wNMV1xNftgWIkfbjhvDPmdJcl MlxmczIyICBvZiBccHJvdGVjd NpcUzbetYN8BKjxFtujeI9pqB EDCSNIObgEBilskgFqRA6JNMI WXqZSAM01BUB2NFK6fHN3Ij37 WIHmZJYsqVAvMPcwG380Qkjqc 9J2YMEjEMiuh8zlAQFpRFzeg2 RfBRcNZBLDAC4HER2noKF8ZOj NQNXLZRriSKguEjR7WybjwTlz OuzawqMluZDcDeDRbP7ieNqaa R3fxUCrR8zvKiHaKmHcKmOssG 7rOKNla8NqM4B5LMIwGEvus6r bLCYfWPhyd6XgSAwAZQWMBL3W LT3kiMN3OCeGOCDTP5rHnPHrD NVoNtktfDZ4h8gjlYFhs1x1KA psLER6kUDYMGD7PTKrEPicb1g xXJIpOQwra7RhYBqJUWOJHD6L XB3sjXH0UIrELWEZYNzeJYkvS zE1B9kbpDvzHwwulnIqfRHyIm KRdK1hiZqfeK5eyCHhX5buCpI mNkHqYyRvwUCeudRlQWj9HLXs Sp8vDMSrc2suS4h2p18pgQCpK tDozdRomJTkmk7vSPNlnzKZZy qpISRiTLDudHGBi0GpCQGQIdv 0MX5LWGIrKFCyzDRODUC7IZ8t FNjhTMQuW8IaA2DxlgW6l3mcr Fwua6HbfWWvZI3jgFMdQZ9ZRH VguwCbUIzszYtmuZ0rJXf0 [facility] Pathologist Interpretation Location [facility], [address] [place] [address], CLIA: [id number]; Joint Commission: [id number]; CAP: [id number] [facility] Specimen source Nom (Unsp spec) Blood, Venous [facility] K/L Qnt Free Light Chains wi th Ratio ([facility] QUEST)on 11-12-2024 Immunoglobulin light chains.kappa.free (S) [Mass/Vol] 13.2 mg/L 3.3 - 19.4 mg/L [facility] Immunoglobulin light chains.kappa.free/Immu noglobulin light chains.lambda.free (S) [Mass ratio] 0.99 0.26 - 1.65 [facility] Comment on above: Free kappa/lambda ratio in serum of normal individuals is 0.26-1.65. Excess production of free kappa or lambda chains can alter the ratio. Monoclonal free light chains are found in the serum of patients with multiple myeloma, Waldenstrom's macroglobulinemia, mu-heavy chain disease, primary amyloidosis, light chain deposition disease, monoclonal gammopathy of undetermined significance, and lymphoproliferative disorders. Measurement of free light chain concen- tration in serum is useful for diagnosis, prognosis, monitoring disease activity and following response to therapy of these disorders. Test Performed by Domingo Tyler, [facility], [address] [place] [id number] Luis Brown M.D., Ph.D., Director of Laboratories , CLIA [id number] Immunoglobulin light chains.lambda.free [Mass/Vol] 13.4 mg/L 5.7 - 26.3 mg/L [facility] Immunofixation Electrophores nick 11-11-2024 SHAHZAD See Below [facility] RELEASED BY Rachel Avery M.D., MPH [facility] REVIEWED BY Tracy Burgess MD [facility] A faint monoclonal I gG kappa protein cannot be excluded. Correlation with serum free light chains is recommended. [facility] Serum Electrophoresison 10-15 Albumin [Mass/Vol] 4.8 g/dL 3.1 - 4.8 g/dL [facility] Alpha 1 0.4 g/dL 0.2 - 0.4 g/dL [facility] Alpha 2 0.7 g/dL 0.6 - 1.0 g/dL [facility] Beta 1 0.5 g/dl 0.3 - 0.6 g/dl [facility] Beta 2 0.3 g/dl 0.3 - 0.5 g/dl [facility] Gamma Globulin 0.6 g/dL 0.4 - 1.4 g/dL [facility] Protein Fractions [Interp] See Below [facility] RELEASED BY Rachel Avery M.D., MPH [facility] REVIEWED BY Tracy Burgess MD [facility] Questionable band pr esent in the gamma region. The band has a concentration of 0.17 g/dL. Low total protein. See SHAHZAD for additional information. [facility] No Panel InformationOrdered By: Rachel Avery on 11-10-2024 Case Report Peripheral Smear Alexis e: [id number] Authorizing Provider: Marion Mccann DO Collected: 11/09/2024 1508 Ordering Location: [facility] - Received: 11/09/2024 1521 [place] Pathologist: Rachel Avery MD MPH Specimen: Blood, Venous [facility] Work Phone: Comment v1xrhFNxHUPoaWDlOTIa MVxhb kXdFSJerIWhQ8SstuxxSYqyBO 5uSH5baSlxrRMdcOBxVKRwAkU qv1bxb323sDHhl8wjZLZXVLdw UZHQKGu4iBvxY06yj4D4YpenZ 97fiQGmOMT0DNSfYUChnSYiEG SrDMM8QPRwtXCdG1asOUUfHN5 iuuklMLeiCOyxNQFskEI6ZRNk gEDqR3WfQPAmZUhaPHQktee1E iXzMd8uaOLslEmiVMnkUGPkWQ JhAAoxJMKiAeHxUJYweQ0vc9H 1kC7roDHkbDFdy0vjbUKnDIQx rzMxRVFsIUXdc86zzZI4FOKbG GdpdmVuIHRvIGFuIHVuZGVybH jwmsxraDclqR3xiTWbtBXpkXv hF579AYzqxXRedGruXTWwcTv1 HCScIA1ofFMszI2yuJYifH== [place] Work Phone: Pathologist Interpretation Location [facility], [address] [place] [address], [facility] [address], CLIA: [id number]; Joint Commission: HCO [id number]; CAP: [id number] [employer] Phone: Pathology report final diagnosis Narrative p1wozGGnEPKneJUyBNFkNHluu xMwWNYpwYFmS8MvnrgdDDpjCF 2uMA3rsKwamJJplNGlQAEuCzH be1xng197pQJyh1wcRBRLFGbt ZVNHRUz5j0peDMOUUSShUQ1wT 125GTYwXNUusHAoWFTyGlP2Y9 42XZAvPRxvhivesL2eupb8yAy zO66uc2T1TrmtQ415MTkhvLvg iTSrRwplt6kkvAC8GInlh6GeV KU7GsvcUMB5CPguuZM3nQMdvZ ogiFXvEM7ls5zxsKG8xcIhYBI 6vIlptZD6lTghohbsn9quuZT1 iZO4CYyhxON3TVxoUaZkW0eyE JPbxE7dL85yJ4ltHDGkzKxoZG fvFBKgwSD6JVN0YIQrm6mfASO nvKDlfBItIyRgWHR1FdT3YJwr DAS0sWoblMT1TRapiG5jHCMyE 31cZjFcbGkzNjBcZmktMzYwfX tcbGlzdGxldmVsXGxldmVsbmZ cPhGnjOB1DPpbPoRhBhQbuVX0 PGbuKaEvuOK8EYwwcUPbaCV5F KvceWR5NMr7FQj2JYyuQR32eV xaiTJ3JIueyI8zBXGoD67eQsN rpUqyYNbxOTGxVVM3ZN70OPnq m9DvHFWjbRopZYGupR9qQwXrH GxldmVsbmZjbjIzXGxldmVsam ZxPCmofwEjp5CtpqLswQF1QIx jycQltVT8kAcdVQNkcR3vCBO4 ZC88nZoxdZT7UVkgoD7vZQGjM 23yNeScaNndNWFmCATsZGN8CB 80VLctg3IsWCZycBueLIAucT2 mYzIzXGxldmVsbmZjbjIzXGxl ywLwpvWqOSbwuuLcf5EkklJer MF0CAzoymDnjQR3oFkcCCTjrG wxMaYaFDx3HJd8u0bcMWJgjT3 6lTMlxoN3zUodAPfjoOQ1XsLp ZmktMzYwfXtcbGlzdGxldmVsX QfpslHlzpJbVjEfoSJ9TCkwLq PfDjNmpJK0MKlmXeDsiDN2PQu lyAZadDB9PTdwpWR2GCg7MWa1 ETgcOW90nPtqsBP0DKvaoJ3aZ BUxH56jHmAlcZvuHrZyGBHpRK F7RK83CPpwi9MlWJNeyTgcOCL ncP4fGoMfKTlwyyLlllYtrfDr ZFwpeeBrpkXsRUdaguTnp6Xes rKqgVK7BEqmjhZmmNT6eQpyVV UngT4wGUB5PF60yBkomGG1GVt bqH3rOJGeM91kExMryQbuIRHy UVNkSJA4CC45RQnhx4KiVRCzo DleBRMydI4yNxXhLKecueUtvb ZjbjIzXGxldmVsamMwXGxldmV tq4ZganLvoZU2MTkvpcOtgPV9 oDcpLQAnlDkkRqDoQSe7QOb6r 0vwRCMckI93aMUbtpX8eGqmFU ersUG1OWZcIpenXuXnlHereNk zdGxldmVsXGxldmVsbmZjMjNc mKV6LLylQeYbEoDanIF5UNzdV lPgjOD5CQkwdVVlrYH1AFsscA E4ANq7VUz0BUicLN88ePzemSP 7OQeykZ3iUSAsH14cPrElrNt7 TGXoABAsERU7YE64SEdqq1BkT DSjzUrtXKFseM6bZoOuEJepwo VsbmZjbjIzXGxldmVsamMwXGx jzhAhs7ZjwyYnfCN0CGrhhsFy lCH6kInbZRDpjL3bDSW4IG49f MthwCH4RBlliA0pHVGwY16mIe EjsOb5AYWgCXQtAZC4WA19bHe yTmjnpXW4e5FdwdAtTQG4WKTr HTbcNxhnkRD4y9PnuzHvYMWei CpkdXajHbn2AzP1Plw1OZhrw7 XbjhFeiovwURIxoI84UAnkchF 2gAtmKHGxtuhpJvZ3EIrpJBSl wjnyCQp2XQbhMNWioHO1DFZph PLyS0IfLGPzMF2ooie6ERZ6PQ ybHHOwCnF4GOOcfECmKTUazGz fLTyuq945YQN4HfCvVLIclgCr wZytdT1lSqMjKVKRHUELMIlCY kFMIFNNRUFSOlxwYXJcbGkzNj DvUponHpGeKNjwvpI5IVryegG otGj9rXPkgTocfZ2iNwHgGHBO v1Hil7L0iJwjBTOlOI8iQE1ue GUwGOXun87kaAYxDM9hgy1ngX Iqb6plKeUasUTkNOJrnq1oPd8 jeXRvcGVuaWEuXHBhclxsaTBc ZmkwXGxpbjAgUnVsZSBvdXQgY rvlj5FqiM5bftoadWTpv8n2p4 ikNDLefiXcL4Qbi69iZWAkeSP utNPgMIouAoDkW6Dpa99zYG44 dHJpdGlvbmFsIGRlZmljaWVuY 3ksIGRydWcvdGhlcmFweSByZW wmsBGhRHVhVI0jSXSjNESgTQE yqcRgrNNks1CpI0ddy68kAzWo mrNfNL9uEWOev04eSLIzO89uz KStJqL2qG7lCTJbT5YgcaGeMT BhciBObyBkeXNncmFudWxvcG9 pZXNpcyBvciBibGFzdHMgaWRl weTvDfwgFY9yfYFpRTitAQtgH GIjiFEoURKsHlJaeVTLPI6mvj A3HB8oGW3pUbLCGErqpyVZjJr 4wWUZQxYnCZ0GNLwxYMN3 [facility] [employer] Work Phone: [facility] [employer] Work Phone: BCR-ABL1 T(9;22), BLOODon BCR-ABL1 TRANSLOCATION T(9;22) Not detected Normal [facility] Comment on above: Performed By: #### L [id number] ####NEOGENOMICS (NEOGENOMICS)[address] [place] [address] REVIEWED BY JERMAINE Sawyer M B ([facility]) Normal [facility] Comment on above: Performed By: #### L [id number] ####NEOGENOMICS (NEOGENOMICS)[address] [place] [address] CBC W Auto Differential pane l (Bld)Ordered By: Rhiannon Garibay on 11-09-2024 Basophils (Bld) [#/Vol] 0 10*3/uL 0.0 - 0.2 10*3/uL [facility] Basophils/100 WBC (Bld) 0.2 % 0.0 - 2.0 % [facility] Eosinophils (Bld) [#/Vol] 0 10*3/uL 0.0 - 0.5 10*3/uL [facility] Eosinophils/100 WBC (Bld) 0.2 % 0.0 - 6.0 % [facility] Erythrocyte distribution width (RBC) [Ratio] 14.7 % 11.5 - 15.0 % [facility] Hematocrit (Bld) [Volume fraction] 32.4 % Low 35.0 - 47.0 % [facility] Hemoglobin (Bld) [Mass/Vol] 10.4 g/dL Low 11.7 - 16.0 g/dL [facility] Immature granulocytes (Bld) [#/Vol] 0 10*3/uL NINF - 0.1 10*3/uL [facility] Immature granulocytes/100 WBC (Bld) 0.3 % 0.0 - 2.0 % [facility] Interpretation and review of laboratory results Abnormal [facility] Lymphocytes (Bld) [#/Vol] 1.2 10*3/uL 1.0 - 4.3 10*3/uL [facility] Lymphocytes/100 WBC (Bld) 12.9 % Low 15.0 - 45.0 % [facility] MCH (RBC) [Entitic mass] 28.6 pg 26.0 - 34.0 pg [facility] MCHC (RBC) [Mass/Vol] 32.1 % 30.5 - 36.0 % [facility] MCV (RBC) [Entitic vol] 89 fL 77.0 - 99.0 fL [facility] Monocytes (Bld) [#/Vol] 2.2 10*3/uL High 0.0 - 0.9 10*3/uL [facility] Monocytes/100 WBC (Bld) 22.9 % High 5.0 - 13.0 % [facility] Neutrophils (Bld) [#/Vol] 6.1 10*3/uL 1.8 - 7.5 10*3/uL [facility] Neutrophils/100 WBC (Bld) 63.5 % 38.0 - 82.0 % [facility] Nucleated RBC/100 WBC (Bld) [Ratio] 0 % [facility] Platelet mean volume (Bld) [Entitic vol] 12 fL 9.0 - 12.7 fL [facility] Comment on above: MPV is a calculated measurement using platelet volume ratio Platelets (Bld) [#/Vol] 102 10*3/uL Low 140 - 440 10*3/uL [facility] RBC (Bld) [#/Vol] 3.64 10*6/uL Low 3.80 - 5.2 0 10*6/uL [facility] WBC (Bld) [#/Vol] 9.6 10*3/uL 3.6 - 10.7 10*3/uL [facility] CBC WITH AUTO DIFFERENTIALon 11-09-2024 Basophils (Bld) [#/Vol] 0.0 10*3/uL Normal 0.0-0.2 [facility] Comment on above: Performed By: #### L [id number] ####Digital Watch Assembler: AMAN SANTOS ([id number])[facility] ([facility])[address] [place] [address] Basophils/100 WBC (Bld) 0.2 % Normal 0.0-2.0 [facility] [employer] Comment on above: Performed By: #### L [id number] ####Digital Watch Assembler: AMAN SANTOS ([id number])[facility] ([facility])[address] [place] [address] Eosinophils (Bld) [#/Vol] 0.0 10*3/uL Normal 0.0-0.5 [facility] Comment on above: Performed By: #### L [id number] ####Digital Watch Assembler: AMAN MEDINALeannOMID ([id number])[facility] ([facility])[address] [place] [address] Eosinophils/100 WBC (Bld) 0.2 % Normal 0.0-6.0 [facility] Comment on above: Performed By: #### L [id number] ####Digital Watch Assembler: AMAN TOM ([id number])[facility] ([facility])[address] [place] [address] Erythrocyte distribution width (RBC) [Ratio] 14.7 % Normal 11.5-15.0 [facility] Comment on above: Performed By: #### L [id number] ####Digital Watch Assembler: AMAN TOM ([id number])[facility] ([address] Hematocrit (Bld) [Volume fraction] 32.4 % Low 35.0-47.0 [facility] Comment on above: Performed By: #### L [id number] ####Digital Watch Assembler: AMAN MEDINAANGELA ([id number])[facility] ([address] Hemoglobin (Bld) [Mass/Vol] 10.4 g/dL Low 11.7-16.0 [facility] Comment on above: Performed By: #### L [id number] ####Digital Watch Assembler: AMAN HEARDOMID ([id number])[facility] ([facility])[address] [place] [address] IMMATURE GRANS % 0.3 % Normal 0.0-2.0 [facility] Comment on above: Performed By: #### L [id number] ####Digital Watch Assembler: AMAN HEARDOMID ([id number])[facility] ([facility])[address] [place] [address] IMMATURE GRANS ABSOLUTE 0.0 10*3/uL Normal <0.1 [facility] Comment on above: Performed By: #### L [id number] ####Digital Watch Assembler: AMANAGA SANTOS ([id number])[facility] ([facility])[address] [place] [address] Lymphocytes (Bld) [#/Vol] 1.2 10*3/uL Normal 1.0-4.3 [facility] Comment on above: Performed By: #### L [id number] ####Digital Watch Assembler: AMANAGA SANTOS ([id number])[facility] ([facility])[address] [place] [address] Lymphocytes/100 WBC (Bld) 12.9 % Low 15.0-45.0 [facility] Comment on above: Performed By: #### L [id number] ####Digital Watch Assembler: AMAN SANTOS ([id number])[facility] ([facility])[address] [place] [address] MCH (RBC) [Entitic mass] 28.6 pg Normal 26.0-34.0 [facility] Comment on above: Performed By: #### L [id number] ####Digital Watch Assembler: AMANAGA SANTOS ([id number])[facility] ([facility])[address] [place] [address] MCHC 32.1 % Normal 30.5-36.0 [facility] Comment on above: Performed By: #### L [id number] ####Digital Watch Assembler: AMAN TOM ([id number])[facility] ([facility])[address] [place] [address] MCV (RBC) [Entitic vol] 89.0 fL Normal 77.0-99.0 [facility] Comment on above: Performed By: #### L [id number] ####Digital Watch Assembler: AMANAGA SANTOS ([id number])[facility] ([facility])[address] [place] [address] Monocytes (Bld) [#/Vol] 2.2 10*3/uL High 0.0-0.9 [facility] Comment on above: Performed By: #### L [id number] ####Digital Watch Assembler: AMAN SANTOS ([id number])[facility] ([facility])[address] [place] [address] Monocytes/100 WBC (Bld) 22.9 % High 5.0-13.0 [facility] Comment on above: Performed By: #### L [id number] ####Digital Watch Assembler: AMAN SANTOS ([id number])[facility] ([facility])[address] [place] [address] NEUTROPHILS ABSOLUTE 6.1 10*3/uL Normal 1.8-7.5 [facility] Comment on above: Performed By: #### L [id number] ####Digital Watch Assembler: AMAN SANTOS ([id number])[facility] ([facility])[address] [place] [address] Neutrophils/100 WBC (Bld) 63.5 % Normal 38.0-82.0 [facility] Comment on above: Performed By: #### L [id number] ####Digital Watch Assembler: AMAN SANTOS ([id number])[facility] ([facility])[address] [place] [address] NRBC 0.0 /100 WBCs Normal 0.0-2.0 [facility] Comment on above: Performed By: #### L [id number] ####Digital Watch Assembler: AMAN SANTOS ([id number])[facility] ([facility])[address] [place] [address] Platelet mean volume (Bld) [Entitic vol] 12.0 fL Normal 9.0-12.7 [facility] Comment on above: Result Comment: MPV is a calculated measurement using platelet volume ratio Performed By: #### L [id number] ####Digital Watch Assembler: AMAN SANTOS ([id number])[facility] ([facility])[address] [place] [address] Platelets (Bld) [#/Vol] 102 10*3/uL Low 140-440 [facility] Comment on above: Performed By: #### L [id number] ####Digital Watch Assembler: AMAN SANTOS ([id number])[facility] ([facility])[address] [place] [address] RBC (Bld) [#/Vol] 3.64 10*6/uL Low 3.80-5.20 [facility] Comment on above: Performed By: #### L [id number] ####Digital Watch Assembler: AMAN SANTOS ([id number])[facility] ([facility])[address] [place] [address] WBC (Bld) [#/Vol] 9.6 10*3/uL Normal 3.6-10.7 [facility] Comment on above: Performed By: #### L [id number] ####Digital Watch Assembler: AMAN SANTOS ([id number])[facility] ([facility])[address] [place] [address] Cobalamin (Vitamin B12) [Mas s/Vol]on 11-09-2024 Interpretation and review of laboratory results Abnormal [facility] Comprehensive metabolic 2000 panelon 11-09-2024 Albumin [Mass/Vol] 4.5 g/dL 3.3 - 5.5 g/dL [facility] ALP [Catalytic activity/Vol] 82 U/L 42 - 141 U/L [facility] ALT [Catalytic activity/Vol] 22 U/L 10 - 47 U/L [facility] Anion gap [Moles/Vol] 15 mmol/L High -4.00 - 12.00 mmol/L [facility] AST [Catalytic activity/Vol] 21 U/L 11 - 38 U/L [facility] Bilirubin [Mass/Vol] 1.1 mg/dL 0.2 - 1 .6 mg/dL [facility] Calcium [Mass/Vol] 10.6 mg/dL High 8.0 - 10. 3 mg/dL [facility] Chloride [Moles/Vol] 104 mmol/L [facility] CO2 [Moles/Vol] 28 mmol/L [facility] GFR/1.73 sq M.predicted MDRD (S/P/Bld) [Vol rate/Area] 67.6 mL/min/{1.73_m2} - PINF [facility] Glucose [Mass/Vol] 94 mg/dL 73 - 118 mg/dL [facility] Interpretation and review of laboratory results Abnormal [facility] Potassium [Moles/Vol] 4.6 mmol/L [facility] Protein [Mass/Vol] 6.9 g/dL 6.4 - 8.1 g/dL [facility] Sodium [Moles/Vol] 147 mmol/L High [facility] Urea nitrogen [Mass/Vol] 23 mg/dL High 7 - 22 mg/dL [facility] Urea nitrogen/Creatinine [Mass ratio] 0.9 mg/dL 0.6 - 1.2 mg/dL [facility] FERRITINon 11-09-2024 Ferritin [Mass/Vol] 147 ng/mL Normal 5-204 [facility] Comment on above: Result Comment: LEOBARDO Gill COMMENTS:Ferritin levels below 10 ng/mL have been reported as indicative of iron deficiency anemia. Performed By: #### L [id number], LAB69, LAB67, [id number] ####Digital Watch Assembler: VIVIAN PANTOJA ([id number])[address] FOLATEon 11-09-2024 FOLATE RESULT 17.1 ng/mL Normal 7.0-31.4 [facility] Comment on above: Performed By: #### L AB68, LAB69, LAB67, [id number] ####Digital Watch Assembler: VIVIAN PANTOJA ([id number])[address] Ferritin [Mass/Vol]on 2024 Interpretation and review of laboratory results Normal [facility] Ferritin levels belo w 10 ng/mL have been reported as indicative of iron deficiency anemia. [facility] Folate [Mass/Vol]on 11-10-19 Interpretation and review of laboratory results Normal [facility] IG CONCENTRATION, BLOOD (IMM UNOFIXATION ELECTROPHORESIS)on 11-09-2024 IGA, BLOOD 164 mg/dL Normal 85-600 [facility] Comment on above: Performed By: #### L [id number], [id number] ####Digital Watch Assembler: VIVIAN PANTOJA ([id number])[facility])[address] [place] [address] IGG, BLOOD 514 mg/dL Low 540-1722 [facility] Comment on above: Performed By: #### L [id number], [id number] ####Digital Watch Assembler: VIVIAN PANTOJA ([id number])[facility] ([facility])[address] [place] [address] IGM, BLOOD 92 mg/dL Normal 25-265 [facility] Comment on above: Performed By: #### L [id number], [id number] ####Digital Watch Assembler: VIVIAN PANTOJA ([id number])[facility] ([facility])[address] [place] [address] IMMUNOFIXATION ELECTROPHORES Nick 11-09-2024 IMMUNOFIXATION ELECTROPHORESIS See Below Normal [facility] Comment on above: Performed By: #### L [id number], [id number] ####Digital Watch Assembler: VIVIAN PANTOJA ([id number])[facility] ([facility])[address] [place] [address] IRON AND TIBCon 11-09-2024 IRON BINDING CAPACITY 323 ug/dL Normal 250-450 [facility] Comment on above: Performed By: #### L [id number], [id number] ####Digital Watch Assembler: VIVIAN PANTOJA ([id number])[facility] ([facility])[address] [place] [address] IRON SATURATION 20.4 % Normal 20.0-50.0 [facility] Comment on above: Performed By: #### L [id number], [id number] ####Digital Watch Assembler: VIVIAN PANTOJA ([id number])[facility] ([facility])[address] [place] [address] IRON, TOTAL 66 ug/dL Normal 50-170 [facility] Comment on above: Performed By: #### L [id number], [id number] ####Digital Watch Assembler: VIVIAN PANTOJA ([id number])[facility] ([facility])[address] [place] [address] [place] Iron and Iron binding capaci ty panelon 11-09-2024 Interpretation and review of laboratory results Normal [facility] Iron [Mass/Vol] 66 ug/dL 50 - 170 ug/dL [facility] Iron binding capacity [Mass/Vol] 323 ug/dL 250 - 450 ug/dL [facility] Iron saturation [Mass fraction] 20.4 % 20.0 - 50.0 % [facility] K/L QNT FREE LIGHT CHAINS WI TH RATIO (BKR QUEST)on 11-09-2024 QUEST KAPPA LIGHT CHAIN, FREE, SERUM 13.2 mg/L Normal 3.3-19.4 [facility] Comment on above: Performed By: #### L [id number] ####[facility] ([facility])[address] [place], [place] [facility] QUEST KAPPA/LAMBDA LIGHT CHAINS FREE WITH RATIO, SERUM 0.99 Normal 0.26-1.65 [facility] Comment on above: Result Comment: Free kappa/lambda ratio in serum of normal individualsis 0.26-1.65. Excess production of free kappa orlambda chains can alter the ratio. Monoclonal freelight chains are found in the serum of patients withmultiple myeloma, Waldenstrom's macroglobulinemia,mu-heavy chain disease, primary amyloidosis, lightchain deposition disease, monoclonal gammopathy ofundetermined significance, and lymphoproliferativedisorders. Measurement of free light chain concen-tration in serum is useful for diagnosis, prognosis,monitoring disease activity and following response totherapy of these disorders.Test Performed by [facility],[address] [place] [address] [id number] Brown M.D., Ph.D., Director of [phone], [facility] [id number] Performed By: #### L [id number] ####[facility] ([facility])[address] [place], [place] [facility] LAMBDA LIGHT CHAIN, FREE, SERUM 13.4 mg/L Normal 5.7-26.3 [facility] Comment on above: Performed By: #### L [id number] ####[facility] ([facility])[address] [place], [place] [facility] Laboratory - Chemistry and C hemistry - challengeon 11-09-2024 Folate [Mass/Vol] 17.1 ng/mL 7.0 - 31.4 ng/mL [facility] Cobalamin (Vitamin B12) [Mass/Vol] 1620 pg/mL High 213 - 816 pg/mL [facility] Ferritin [Mass/Vol] 147 ng/mL 5 - 204 ng/mL [facility] IgA [Mass/Vol] 164 mg/dL 85 - 600 mg/dL [facility] IgG [Mass/Vol] 514 mg/dL Low 540 - 1722 mg/dL [facility] IgM [Mass/Vol] 92 mg/dL 25 - 265 mg/dL [facility] Protein [Mass/Vol] 7.2 g/dL 6.4 - 8.3 g/dL [facility] Comment on above: Serum protein values are higher than plasma values. Samples from recumbent persons are lower by up to 0.5 g/dL as compared to ambulatory persons. After 60 years values are lower by up to 0.2 g/dL. Laboratory - Coagulationon 0 11-09-2024 aPTT Coag (PPP) [Time] 35 s High 20.0 - 30.5 s [facility] INR Coag (PPP) [Relative time] 1.2 {INR} High 0.9 - 1.1 [facility] Comment on above: Recommended Anticoag ulant Therapy: [...] used to prevent Myocardial Infarction PT Coag (Bld) [Time] 12.3 s High 9.0 - 12.0 s [facility] No Panel Informationon 11-09 Interpretation and review of laboratory results Abnormal [facility] Interpretation and review of laboratory results Abnormal [facility] Interpretation and review of laboratory results Normal [facility] PROTIME AND APTTon aPTT Coag (Bld) [Time] 35.0 s High 20.0-30.5 [facility] Comment on above: Performed By: #### L [id number] ####Digital Watch Assembler: VIVIAN PANTOJA ([phone])[facility])[address] [place] [address] INR Coag (PPP) [Relative time] 1.2 {INR} High 0.9-1.1 [facility] Comment on above: Result Comment: Hong [...] prevent Myocardial Infarction Performed By: #### L [id number] ####Digital Watch Assembler: VIVIAN PANTOJA ([id number])[facility])[address] [place] [address] PT Coag (PPP) [Time] 12.3 s High 9.0-12.0 [facility] Comment on above: Performed By: #### L [id number] ####Digital Watch Assembler: VIVIAN PANTOJA ([id number])[facility])[address] [place] [address] Progress Noteon 11-09-2024 Progress Note ARRIVAL NOTE INFUSIO N Patient is here for lab draw Labs were drawn peripherally from LAC. Site benign and patient tolerated well. Gauze and coban applied. DC with family member without concern. Normal [facility] Progress Note Pt scheduled for bp check 11/27 Normal [facility] Progress Note Left message to retu rn call Please place call back to office to schedule BP Check Normal [facility] Progress Note We want to inform yo u that your patient's blood pressure was noted to be elevated in our office today. We thank you for trusting us with your patient's health. Last BP: BP Readings from Last 1 Encounters: 11/09/24 1412 (!) 140/63 11/09/24 1405 (!) 140/72 Normal [facility] Progress Note Normal [facility] SERUM ELECTROPHORESISon 10-14 Albumin [Mass/Vol] 4.8 g/dL Normal 3.1-4.8 [facility] Comment on above: Performed By: #### L [id number], [id number] ####Digital Watch Assembler: VIVIAN PANTOJA ([id number])[facility])[address] [place] [address] ALPHA 1 0.4 g/dL Normal 0.2-0.4 [facility] Comment on above: Performed By: #### L [id number], [id number] ####Digital Watch Assembler: VIVIAN PANTOJA ([id number])[facility])[address] [place] [address] ALPHA 2 0.7 g/dL Normal 0.6-1.0 [facility] Comment on above: Performed By: #### L [id number], [id number] ####Digital Watch Assembler: VIVIAN PANTOJA ([id number])[facility])[address] [place] [address] [place] BETA 1 0.5 g/dl Normal 0.3-0.6 [facility] Comment on above: Performed By: #### L [id number], [id number] ####Digital Watch Assembler: VIVIAN PANTOJA ([id number])[facility])[address] [place] [address] [place] BETA 2 0.3 g/dl Normal 0.3-0.5 [facility] Comment on above: Performed By: #### L [id number], [id number] ####Digital Watch Assembler: VIVIAN PANTOJA ([id number])[facility])[address] [place] [address] [place] GAMMA GLOBULIN 0.6 g/dL Normal 0.4-1.4 [facility] Comment on above: Performed By: #### L [id number], [id number] ####Digital Watch Assembler: VIVIAN PANTOJA ([id number])[facility])[address] [place] [address] [place] PROTEIN FRACTION (INTERPRETATION) IN SER/PLAS BY ELECTROPHORESIS See Below Normal [facility] Comment on above: Performed By: #### L [id number], [id number] ####Digital Watch Assembler: VIVIAN PANTOJA ([id number])[facility])[address] [place] [address] RELEASED BY Rachel Avery M.D., MPH Normal [facility] Comment on above: Result Comment: ORDE R COMMENTS:Questionable band present in the gamma region. The band has a concentration of 0.17 g/dL. Low total protein. See SHAHZAD for additional information. Performed By: #### L [id number], [id number] ####Digital Watch Assembler: VIVIAN PANTOJA ([id number])[facility])[address] [place] [address] Result Comment: ORDE R COMMENTS:A faint monoclonal IgG kappa protein cannot be excluded. Correlation with serum free light chains is recommended. REVIEWED BY Tracy Burgess MD [facility] Comment on above: Performed By: #### L [id number], [id number] ####Digital Watch Assembler: VIVIAN PANTOJA ([id number])[facility] ([facility])[address] [place] [address] TOTAL PROTEIN (SERUM PROTEIN ELECTROPHORESIS)on 11-09-2024 Protein [Mass/Vol] 7.2 g/dL Normal 6.4-8.3 [facility] Comment on above: Result Comment: Seru m protein values are higher than plasma values. Samples from recumbent persons are lower by up to 0.5 g/dL as compared to ambulatory persons. After 60 years values are lower by up to 0.2 g/dL. Performed By: #### L AB68, LAB69, LAB67, [id number] ####Digital Watch Assembler: VIVIAN PANTOJA ([id number])[facility])[address] [place] [address] VITAMIN B12on 11-09-2024 Cobalamin (Vitamin B12) [Mass/Vol] 1620 pg/mL High 213-816 [facility] Comment on above: Performed By: #### L AB68, LAB69, LAB67, [id number] ####Digital Watch Assembler: VIVIAN PANTOJA ([id number])[facility] ([facility])[address] [place], [place] [id number] [facility] 11-06-2024 36 Name of Caller: Joann porter Contact Reason for Appointment: Patient needs to RS new patient appointment that was scheduled for 11.07.24 Office Name: Oncology Medication Refills need, if any: NA Medication Name: NA [place] [address] 10-31-2024 36 Noted; thank you; ye s it is transthoracic, not transesophageal. [facility] 36 Daughter called, and she cancelled her Echocardiogram for today because she thought it was for a MARTY. I explained that this is a TTE not MARTY. Test is now scheduled at [facility] 11/20/24. [place] [address] 10-20-[address] 10-12-2024 [address] 10-11-[address] [facility] 36 [place] [address] 10-10-2024 36 Left message for Les lie to return call to the office. Normal [facility] 36 Normal [facility] 36 Patient missed her 08/23/24 appointment for an Echocardiogram. Called patient, and left message for call back. [place] [address] 10-09-[address] 10-02-2024 36 Order faxed [address] 09-29-[address] [facility] DBT Breast - bilateral scree melodygon 09-29-2024 No mammographic evid ence of malignancy. ASSESSMENT: Category 2 Benign RECOMMENDATION: Routine screening mammogram in 1 year. Bilateral CANCER RISK ASSESSMENT: This risk assessment is based on patient provided information collected in a risk survey taken at the time of this examination. LIFETIME BREAST CANCER RISK: Lucia 8: 6.66% - If greater than or equal to 20%, consider annual mammogram and annual screening Breast MRI or follow up in high risk clinic. Is the patient at elevated risk based on the HBOC criteria? No (Hereditary Breast and Ovarian Cancer) - If Yes, consider genetic counseling and testing with high risk follow up Is the patient at elevated risk based on the Meeks Syndrome criteria? No - If Yes, consider genetic counseling and testing with high risk follow up. Report Dictated on Electronically Signed By: Kurt Metzger MD Electronically Signed Date/Time: 09/29/2024 8:19 AM EDT [facility] Patient Name: ALTA MOYA : 1950 Exam Date/Time: 09/28/2024 14:37 Procedure: BI MAMMOGRAM SCREENING TOMOSYNTHESIS BILATERAL Ordering Provider: IBARRA EUGENE Reason For Exam: This exam was performed at [facility] [address] [facility] [address] PATIENT CANCER HISTORY: No Personal History of Cancer FAMILY CANCER HISTORY: Paternal Grandmother Breast Cancer Image views: 2D Bilateral CC and MLO views were acquired. 3D Bilateral CC and MLO views were acquired. Images were reviewed with CAD. Markings on images: BB's = Nipples; skin lesions Open [place] = Palpable Line = Scar COMPARISON: 08/02/2023, 07/24/2021, 11/27/2019 TISSUE DENSITY: BIRADS B - There are scattered areas of fibroglandular density. FINDINGS: No suspicious masses, architectural distortions or suspiciously clustered microcalcifications are identified. Postsurgical changes to the right breast remain stable. There is no evidence of skin thickening or nipple retraction. There are no significant changes when compared with prior studies. [facility] Amy Metzger MD - 09/29/2024 Patient Name: ALTA BAKER : 1950 Exam Date/Time: 09/28/2024 14:37 Procedure: BI MAMMOGRAM SCREENING TOMOSYNTHESIS BILATERAL Ordering Provider: IBARRA EUGENE Reason For Exam: This exam was performed at [facility] [address] [facility] [address] PATIENT CANCER HISTORY: No Personal History of Cancer FAMILY CANCER HISTORY: Paternal Grandmother Breast Cancer Image views: 2D Bilateral CC and MLO views were acquired. 3D Bilateral CC and MLO views were acquired. Images were reviewed with CAD. Markings on images: BB's = Nipples; skin lesions Open [place] = Palpable Line = Scar COMPARISON: 08/02/2023, 07/24/2021, 11/27/2019 TISSUE DENSITY: BIRADS B - There are scattered areas of fibroglandular density. FINDINGS: No suspicious masses, architectural distortions or suspiciously clustered microcalcifications are identified. Postsurgical changes to the right breast remain stable. There is no evidence of skin thickening or nipple retraction. There are no significant changes when compared with prior studies. IMPRESSION: No mammographic evidence of malignancy. ASSESSMENT: Category 2 Benign RECOMMENDATION: Routine screening mammogram in 1 year. Bilateral CANCER RISK ASSESSMENT: This risk assessment is based on patient provided information collected in a risk survey taken at the time of this examination. LIFETIME BREAST CANCER RISK: Lucia 8: 6.66% - If greater than or equal to 20%, consider annual mammogram and annual screening Breast MRI or follow up in high risk clinic. Is the patient at elevated risk based on the HBOC criteria? No (Hereditary Breast and Ovarian Cancer) - If Yes, consider genetic counseling and testing with high risk follow up Is the patient at elevated risk based on the Meeks Syndrome criteria? No - If Yes, consider genetic counseling and testing with high risk follow up. Report Dictated on Electronically Signed By: Kurt Metzger MD Electronically Signed Date/Time: 09/29/2024 8:19 AM EDT [facility] DBT Breast - bilateral scree Diegordered By: Amy Metzger on 09-29-2024 [facility] Work Phone: DBT Breast - bilateral scree amena 09-28-2024 Radiology Study observation (narrative) [facility] 36on 09-25-2024 36 noted Normal [facility] 36on 09-22-2024 36 Normal [facility] 36 Demographics faxed. Normal [facility] 36 Normal [facility] 36 Order faxed . Normal [facility] 36 Normal [facility] 36on 09-21-2024 36 Normal [facility] 36on 09-12-2024 36 Spoke with patient a nd she will be here 09/19/24 @ 6:[address] [facility] 36 Left message for pat ient to return call to the office, please have pt arrive at 6:[address] [facility] 09-11-2024 36 Name of Caller: Joann porter Contact Reason for Appointment: JAMIN, prefers Wednesday or Wednesday so daughter can come with her Office Name: [facility] Medication Refills need, if any: n/a Medication Name: n/a [facility] 3609-05-2024 36 Left message for pat ient to return call to the office, please go over med list with patient thanks, [facility] 09-04-2024 36 Please verify meliza valencia medication list is up to date [place] [id number] [facility] 36 Called and spoke greg Milian. She is going to fax over patients hospital records for Dr. Ibarra to review. Please document once fax is received and placed with Dr. Ibarra [facility] 36 [facility] Absolute lymphocyte countOrd ered By: Jimbo Ibarra on 08-28-2024 Lymphocytes Auto (Unsp spec) [#/Vol] 0.69 10*3/uL Low 0.83-4.51 [facility] Absolute neutrophil countOrd ered By: Jimbo Ibarra on 08-28-2024 Neutrophils (Bld) [#/Vol] 9.3 10*3/uL High 2.0-7.7 [facility] Anion gap in Serum or Plasma Ordered By: Jimbo Ibarra on 08-28-2024 Anion gap [Moles/Vol] 9 mmol/L 5-15 [facility] Automated lymphocyte count a s percentage of total leukocytesOrdered By: Jimbo Ibarra on 08-28-2024 Lymphocytes/100 WBC Auto (Unsp spec) 5.9 % Low 19-41 [facility] BUN/creatinine ratioOrdered By: Jimbo Ibarra on 08-28-2024 Urea nitrogen/Creatinine [Mass ratio] 37.9 mg/mg High 10-20 [facility] Basic Metabolic Profile (BMP )on 08-28-2024 BUN/CRE 37.9 RATIO High 10-20 [facility] Comment on above: Performed By: #### M 100.638 #### [facility] [address] [place], [address] Calcium [Mass/Vol] 10.1 mg/dL Normal 7.6-11.0 [facility] Comment on above: Performed By: #### M 100.638 #### [facility] [address] [place], [address] Chloride [Moles/Vol] 99 mmol/L Normal 98-108 [facility] Comment on above: Performed By: #### M 100.638 #### [facility] [address] [place], [address] CO2 [Moles/Vol] 37.3 mmol/L High 21.0-32.0 [facility] Comment on above: Performed By: #### M 100.638 #### [facility] [address] [place], [address] Creatinine [Mass/Vol] 0.71 mg/dL Normal 0.70-1.20 [facility] Comment on above: Performed By: #### M 100.638 #### [facility] [address] [place], [address] ECRCL 64.48 ml/min Normal 50-250 [facility] Comment on above: Performed By: #### M 100.638 #### [facility] [address] [place], [address] GAP 9 Normal 5-15 [facility] Comment on above: Performed By: #### M 100.638 #### [facility] [address] [place], [address] GFR/1.73 sq M.predicted among non-blacks MDRD (S/P/Bld) [Vol rate/Area] 90 mL/min/{1.73_m2} Normal >60 [facility] Comment on above: Result Comment: mL/m in/1.73m2 CKD-EPI Creatinine Equation (2020) Performed By: #### M 100.638 #### [facility] [address] [place], [address] Glucose [Mass/Vol] 141 mg/dL High 70-99 [facility] Comment on above: Performed By: #### M 100.638 #### [facility] [address] [place], [address] Potassium [Moles/Vol] 4.2 mmol/L Normal 3.3-5.1 [facility] Comment on above: Performed By: #### M 100.638 #### [facility] [address] [place], [address] Sodium [Moles/Vol] 145 mmol/L Normal 133-145 [facility] Comment on above: Performed By: #### M 100.638 #### [facility] [address] [place], [address] Urea nitrogen [Mass/Vol] 27 mg/dL High 4-19 [facility] Comment on above: Performed By: #### M 100.638 #### [facility] [address] [place], [address] Basophil percentageOrdered B y: Jimbolola Ibarra on 08-28-2024 Basophils/100 WBC (Bld) 0.2 % 0-1 [facility] CBC W/Diff, Automatedon 08-13 Absolute Lymph 0.69 X10 3/uL Low 0.83-4.51 [facility] Comment on above: Performed By: #### M 100.638 #### [facility] [address] [place], [address] Absolute Neut 9.3 X10 3/uL High 2.0-7.7 [facility] Comment on above: Performed By: #### M 100.638 #### [facility] [address] [place], [address] Basophils/100 WBC (Bld) 0.2 % Normal 0-1 [facility] Comment on above: Performed By: #### M 100.638 #### [facility] [address] [place], [address] Eosinophils/100 WBC (Bld) 0.0 % Normal 0-5 [facility] Comment on above: Performed By: #### M 100.638 #### [facility] [address] [place], [address] Erythrocyte distribution width (RBC) [Ratio] 14.6 % Normal 11.6-14.6 [facility] Comment on above: Performed By: #### M 100.638 #### [facility] [address] [place], [address] Hematocrit (Bld) [Volume fraction] 28.9 % Low 37-47 [facility] Comment on above: Performed By: #### M 100.638 #### [facility] [address] [place], [address] Hemoglobin (Bld) [Mass/Vol] 8.7 g/dL Low 12.0-15.0 [facility] Comment on above: Performed By: #### M 100.638 #### [facility] [address] [place], [address] IG% 3.800 High 0.0-0.9 [facility] Comment on above: Result Comment: IG% - Immature Granulocytes (promyelocytes, myelocytes and metamyelocytes) > 1% indicates that a LEFT SHIFT is Present. Performed By: #### M 100.638 #### [facility] [address] [place], [address] Lymphocytes/100 WBC (Bld) 5.9 % Low 19-41 [facility] Comment on above: Performed By: #### M 100.638 #### [facility] [address] [place], [address] MCH (RBC) [Entitic mass] 27.6 pg Normal 27.0-32.0 [facility] Comment on above: Performed By: #### M 100.638 #### [facility] [address] [place], [address] MCHC (RBC) [Mass/Vol] 30.1 g/dL Low 32-36 [facility] Comment on above: Performed By: #### M 100.638 #### [facility] [address] [place], [address] MCV (RBC) [Entitic vol] 91.7 fL Normal 81-99 [facility] Comment on above: Performed By: #### M 100.638 #### [facility] [address] [place], [address] Monocytes/100 WBC (Bld) 10.8 % High 0-10 [facility] Comment on above: Performed By: #### M 100.638 #### [facility] [address] [place], [address] Neutrophils/100 WBC (Bld) 79.3 % High 47-70 [facility] Comment on above: Performed By: #### M 100.638 #### [facility] [address] [place], [address] Nucleated RBC (Bld) [#/Vol] 0 10*3/uL Normal 0-5 [facility] Comment on above: Performed By: #### M 100.638 #### [facility] [address] [place], [address] Platelet mean volume (Bld) [Entitic vol] 13.0 fL High 6.2-12.0 [facility] Comment on above: Performed By: #### M 100.638 #### [facility] [address] [place], [address] Platelets (Bld) [#/Vol] 94 10*3/uL Low 150-450 [facility] Comment on above: Performed By: #### M 100.638 #### [facility] [address] [place], [address] RBC (Bld) [#/Vol] 3.15 10*6/uL Low 4.2-5.4 [facility] Comment on above: Performed By: #### M 100.638 #### [facility] [address] [place], [address] RDW SD 48.2 fl High 35.1-43.9 [facility] Comment on above: Performed By: #### M 100.638 #### [facility] [address] [place], [address] WBC (Bld) [#/Vol] 11.7 10*3/uL High 4.4-11.0 [facility] Comment on above: Performed By: #### M 100.638 #### [facility] [address] [place], [address] Carbon dioxide, total [Moles /volume] in Central venous bloodOrdered By: Jimbo Ibarra on 08-28-2024 CO2 [Moles/Vol] 37.3 mmol/L High 21.0-32.0 [facility] Chloride assayOrdered By: Bindu Ibarra on 08-28-2024 Chloride [Moles/Vol] 99 mmol/L 98-108 [facility] Discharge Instructionon 08-13 Discharge Instruction [facility] Medical Records Department [address] [place] [address] Instructions for Home/Discharge Instructions 08/28/24 1002 MR#: [id number] Acct: [id number] Name: ALTA BAKER Rep #: [id number] : 1950 74 From: Jimbo Ibarra MD PCP: Dr. Kory Ibarra, DO Status:ADM IN Discharge Instructions Diet Discharge Diet: Low fat / Low cholesterol DC O2, CPAP, BIPAP needs Home O2 Discharge instructions: No Dressing / Incision Discharge Activity: Return to Normal Activity Dressing / Incision Call your doctor if you observe: Fever of 101 or Higher, Shortness of breath, Dizziness, Fainting spells, Swelling in the ankles, Chest pain and Increased palpitations (irregular heartbeat) Follow Up Care Test Results: Test results from this visit will be discussed in further detail at your follow-up appointment, if applicable. Discharge Plan Admission Admit Date/Time: 08/24/24 23:03 Attending Provider: Jimbo Ibarra Primary Care Provider: Kory Ibarra Consulting Providers: Jemima Poe; John Paul Will Instructions Additional Instructions / Restrictions: Follow-up with your PCP to clarify the medications which were supposed to be taking as you have had a couple of duplications when we were doing our medication reconciliation on admission and discharge Discharge Orders/Prescriptions Prescriptions: New prednisone 10 mg tablet 10 mg PO DAILY Qty: 20 0RF Rx Instructions: 3 tablets daily for 3 days then 2 tablets daily for 3 days then 1 tablet daily for 3 days then half tablet daily for 4 days cefdinir 300 mg capsule 300 mg PO BID 3 Days Qty: 6 0RF Continued folic acid 1 mg tablet 1 mg PO DAILY furosemide 40 MG tablet 40 mg PO BID Patient Comments: Water pill sertraline 50 mg tablet 50 mg PO QHS Patient Comments: Anti-depressant/anxiety atorvastatin 10 MG tablet 10 mg PO [...] 100 mg PO BID PRN (Reason: constipation) diltiazem HCl 60 mg Tablet 60 mg PO Q8 Qty: 120 0RF metoprolol tartrate 25 mg Tablet 75 mg PO BID Qty: 180 0RF tiotropium bromide [Spiriva with HandiHaler] 18 mcg capsule, w/inhalation device 1 cap inhalation DAILY Qty: 30 0RF Rx Instructions: puncture 1 cap using device; one dose = 2 inhalations albuterol sulfate 90 mcg/actuation HFA aerosol inhaler 1 inh inhalation Q6H Qty: 6.7 0RF ipratropium-albuterol 0.5 mg-3 mg(2.5 mg base)/3 mL solution for nebulization 3 ml inhalation lisinopril 20 mg tablet 20 mg PO DAILY ondansetron HCl 4 mg tablet 4 mg PO Q12H PRN PRN (Reason: nausea/vomiting) potassium chloride 20 mEq tablet,ER particles/crystals 20 meq PO DAILY calcitonin (salmon) 200 unit/actuation spray,non-aerosol 1 spray DAILY risedronate 35 mg tablet PO potassium chloride 10 mEq tablet,ER particles/crystals 10 meq PO BID ferrous sulfate 324 mg (65 mg iron) tablet,delayed release (DR/EC) 324 mg PO BID Dulera 100-5 mcg/actuation HFA aerosol inhaler inhalation Spiriva Respimat 2.5 mcg/actuation mist 2 puff INHALATION DAILY Discontinued lisinopril 10 MG tablet 20 mg PO DAILY Patient Comments: BLOOD PRESSURE/HEART azithromycin 250 mg tablet PO metoprolol tartrate 100 mg tablet 200 mg PO Referrals / Follow Up: Kory Ibarra DO [Primary Care Provider] - Within 1 Week Disposition Disposition (needs filled in before D/C Order can be placed): Home, Self Care 08/28/24 1014 Jimbo Ibarra MD CC: Dr. John Paul Will DO; Dr. Kory Ibarra DO; Dr. Jemima Poe DO Signed Normal [facility] Eosinophil percentageOrdered By: Jimbo Ibarra on 08-28-2024 Eosinophils/100 WBC (Bld) 0.0 % 0-5 [facility] Erythrocyte distribution wid th ratioOrdered By: Jimbo Ibarra on 08-28-2024 Erythrocyte distribution width (RBC) [Ratio] 14.6 % 11.6-14.6 [facility] Erythrocyte distribution wid th standard deviationOrdered By: Jimbo Ibarra on 08-28-2024 Erythrocyte distribution width (RBC) [Ratio] 48.2 fl High 35.1-43.9 [facility] Glomerular filtration rate ( GFR) estimation/1.73 sq m using serum, plasma, or whole bOrdered By: Jimbo Ibarra on 08-28-2024 GFR/1.73 sq M.predicted among non-blacks MDRD (S/P/Bld) [Vol rate/Area] 90 mL/min/{1.73_m2} >60 [facility] Comment on above: mL/min/1.73m2 CKD-EP I Creatinine Equation (2020) Hematocrit Auto (Bld) [Volum e fraction]Ordered By: Jimbo Ibarra on 08-28-2024 Hematocrit (Bld) [Volume fraction] 28.9 % Low 37-47 [facility] Hemoglobin measurementOrdere d By: Jimbo Ibarra on 08-28-2024 Hemoglobin (Bld) [Mass/Vol] 8.7 g/dL Low 12.0-15.0 [facility] Immature granulocytes/100 WB C Auto (Bld)Ordered By: Jimbo Ibarra on 08-28-2024 Immature granulocytes/100 WBC (Bld) 3.800 % High 0.0-0.9 [facility] Comment on above: IG% - Immature Granu locytes (promyelocytes, myelocytes and metamyelocytes) > 1% indicates that a LEFT SHIFT is Present. MCV (mean corpuscular volume ) determinationOrdered By: Jimbo Ibarra on 08-28-2024 MCV (RBC) [Entitic vol] 91.7 fL 81-99 [facility] Mean corpuscular hemoglobin (MCH) determinationOrdered By: Jimbo Ibarra on 08-28-2024 MCH (RBC) [Entitic mass] 27.6 pg 27.0-32.0 [facility] Mean corpuscular hemoglobin concentration (MCHC) determinationOrdered By: Jimbo Ibarra on 08-28-2024 MCHC (RBC) [Mass/Vol] 30.1 g/dL Low 32-36 [facility] Mean platelet volume determi nationOrdered By: Jimbo Ibarra on 08-28-2024 Platelet mean volume (Bld) [Entitic vol] 13.0 fL High 6.2-12.0 [facility] Monocyte percentageOrdered B y: Jimbo Ibarra on 08-28-2024 Monocytes/100 WBC (Bld) 10.8 % High 0-10 [facility] Neutrophil percentageOrdered By: Jimbo Ibarra on 08-28-2024 Neutrophils/100 WBC (Bld) 79.3 % High 47-70 [facility] Nucleated red blood cell per centageOrdered By: Jimbo Ibarra on 08-28-2024 Nucleated RBC/100 WBC (Bld) [Ratio] 0 % 0-5 [facility] Platelet countOrdered By: Bindu Ibarra on 08-28-2024 Platelets (Bld) [#/Vol] 94 10*3/uL Low 150-450 [facility] Potassium measurement (mass/ volume)Ordered By: Jimbo Ibarra on 08-28-2024 Potassium (Unsp spec) [Mass/Vol] 4.2 mmol/L 3.3-5.1 [facility] RBC Auto (Bld) [#/Vol]Ordere d By: Jimbo Ibarra on 08-28-2024 RBC (Bld) [#/Vol] 3.15 10*6/uL Low 4.2-5.4 [facility] Serum creatinine measurement (mass/volume)Ordered By: Jimbo Ibarra on 08-28-2024 Creatinine [Mass/Vol] 0.71 mg/dL 0.70-1.20 [facility] Serum glucose measurement (m ass/volume)Ordered By: Jimbo Ibarra on 08-28-2024 Glucose [Mass/Vol] 141 mg/dL High 70-99 [facility] Serum or plasma calcium betzaida urement (mass/volume)Ordered By: Jimbo Ibarra on 08-28-2024 Calcium [Mass/Vol] 10.1 mg/dL 7.6-11.0 [facility] Serum or plasma urea nitroge n measurement (mass/volume)Ordered By: Jimbo Ibarra on 08-28-2024 Urea nitrogen [Mass/Vol] 27 mg/dL High 4-19 [facility] Sodium levelOrdered By: David Ibarra on 08-28-2024 Sodium [Moles/Vol] 145 mmol/L 133-145 [facility] White blood cell (WBC) count Ordered By: Jimbo Ibarra on 08-28-2024 WBC (Bld) [#/Vol] 11.7 10*3/uL High 4.4-11.0 [facility] Basic Metabolic Profile (BMP )on 08-27-2024 BUN/CRE 39.8 RATIO High 10-20 [facility] Comment on above: Performed By: #### M 100.678 #### [facility] [address] [place], [address] Calcium [Mass/Vol] 10.1 mg/dL Normal 7.6-11.0 [facility] Comment on above: Performed By: #### M 100.678 #### [facility] [address] [place], [address] Chloride [Moles/Vol] 100 mmol/L Normal 98-108 [facility] Comment on above: Performed By: #### M 100.678 #### [facility] [address] [place], [address] CO2 [Moles/Vol] 31.8 mmol/L Normal 21.0-32.0 [facility] Comment on above: Performed By: #### M 100.678 #### [facility] [address] [place], [address] Creatinine [Mass/Vol] 0.72 mg/dL Normal 0.70-1.20 [facility] Comment on above: Performed By: #### M 100.678 #### [facility] [address] [place], [address] ECRCL 65.20 ml/min Normal 50-250 [facility] Comment on above: Performed By: #### M 100.678 #### [facility] [address] [place], [address] GAP 10 Normal 5-15 [facility] Comment on above: Performed By: #### M 100.678 #### [facility] [address] [place], [address] GFR/1.73 sq M.predicted among non-blacks MDRD (S/P/Bld) [Vol rate/Area] 88 mL/min/{1.73_m2} Normal >60 [facility] Comment on above: Result Comment: mL/m in/1.73m2 CKD-EPI Creatinine Equation (2020) Performed By: #### M 100.678 #### [facility] [address] [place], [address] Glucose [Mass/Vol] 142 mg/dL High 70-99 [facility] Comment on above: Performed By: #### M 100.678 #### [facility] [address] [place], [address] Potassium [Moles/Vol] 4.5 mmol/L Normal 3.3-5.1 [facility] Comment on above: Result Comment: Hemo lysis present, Results??could be affected. ?? Performed By: #### M 100.678 #### [facility] [address] [place], [address] Sodium [Moles/Vol] 142 mmol/L Normal 133-145 [facility] Comment on above: Performed By: #### M 100.678 #### [facility] [address] [place], [address] Urea nitrogen [Mass/Vol] 29 mg/dL High 4-19 [facility] Comment on above: Performed By: #### M 100.678 #### [facility] [address] [place], [address] Blood manual differential co mment interpretation (narrative result)Ordered By: Jimbo Ibarra on 08-27-2024 Manual differential comment Willis (Bld) [Interp] SCANNED [facility] CBC W/Diff, Automatedon 08-13 SMEAR COMMENT SCANNED Normal [facility] Comment on above: Performed By: #### M 100.638 #### [facility] [address] [place], [address] Basic Metabolic Profile (BMP )on 08-26-2024 BUN/CRE 36.3 RATIO High 10-20 [facility] Comment on above: Performed By: #### M 100.678 #### [facility] [address] [place], [address] Calcium [Mass/Vol] 10.2 mg/dL Normal 7.6-11.0 [facility] Comment on above: Performed By: #### M 100.678 #### [facility] [address] [place], [address] Chloride [Moles/Vol] 101 mmol/L Normal 98-108 [facility] Comment on above: Performed By: #### M 100.678 #### [facility] [address] [place], [address] CO2 [Moles/Vol] 31.6 mmol/L Normal 21.0-32.0 [facility] Comment on above: Performed By: #### M 100.678 #### [facility] [address] [place], [address] Creatinine [Mass/Vol] 0.84 mg/dL Normal 0.70-1.20 [facility] Comment on above: Performed By: #### M 100.678 #### [facility] [address] [place], [address] ECRCL 62.17 ml/min Normal 50-250 [facility] Comment on above: Performed By: #### M 100.678 #### [facility] [address] [place], [address] GAP 9 Normal 5-15 [facility] Comment on above: Performed By: #### M 100.678 #### [facility] [address] [place], [address] GFR/1.73 sq M.predicted among non-blacks MDRD (S/P/Bld) [Vol rate/Area] 73 mL/min/{1.73_m2} Normal >60 [facility] Comment on above: Result Comment: mL/m in/1.73m2 CKD-EPI Creatinine Equation (2020) Performed By: #### M 100.678 #### [facility] [address] [place], [address] Glucose [Mass/Vol] 139 mg/dL High 70-99 [facility] Comment on above: Performed By: #### M 100.678 #### [facility] [address] [place], [address] Potassium [Moles/Vol] 4.9 mmol/L Normal 3.3-5.1 [facility] Comment on above: Performed By: #### M 100.678 #### [facility] [address] [place], [address] Sodium [Moles/Vol] 142 mmol/L Normal 133-145 [facility] Comment on above: Performed By: #### M 100.678 #### [facility] [address] [place], [address] Urea nitrogen [Mass/Vol] 31 mg/dL High 4-19 [facility] Comment on above: Performed By: #### M 100.678 #### [facility] [address] [place], [address] CBC W/Diff, Automatedon 06-03 18-2024 Absolute Lymph 0.66 X10 3/uL Low 0.83-4.51 [facility] Comment on above: Performed By: #### M 100.678 #### [facility] [address] [place], [address] Absolute Neut 9.1 X10 3/uL High 2.0-7.7 [facility] Comment on above: Performed By: #### M 100.678 #### [facility] [address] [place], [address] Basophils/100 WBC (Bld) 0.2 % Normal 0-1 [facility] Comment on above: Performed By: #### M 100.678 #### [facility] [address] [place], [address] Eosinophils/100 WBC (Bld) 0.0 % Normal 0-5 [facility] Comment on above: Performed By: #### M 100.678 #### [facility] [address] [place], [address] Erythrocyte distribution width (RBC) [Ratio] 14.7 % High 11.6-14.6 [facility] Comment on above: Performed By: #### M 100.678 #### [facility] [address] [place], [address] Hematocrit (Bld) [Volume fraction] 28.5 % Low 37-47 [facility] Comment on above: Performed By: #### M 100.678 #### [facility] [address] [place], [address] Hemoglobin (Bld) [Mass/Vol] 8.7 g/dL Low 12.0-15.0 [facility] Comment on above: Performed By: #### M 100.678 #### [facility] [address] [place], [address] IG% 2.000 High 0.0-0.9 [facility] Comment on above: Result Comment: IG% - Immature Granulocytes (promyelocytes, myelocytes and metamyelocytes) > 1% indicates that a LEFT SHIFT is Present. Performed By: #### M 100.678 #### [facility] [address] [place], [address] Lymphocytes/100 WBC (Bld) 6.1 % Low 19-41 [facility] Comment on above: Performed By: #### M 100.678 #### [facility] [address] [place], [address] MCH (RBC) [Entitic mass] 28.2 pg Normal 27.0-32.0 [facility] Comment on above: Performed By: #### M 100.678 #### [facility] [address] [place], [address] MCHC (RBC) [Mass/Vol] 30.5 g/dL Low 32-36 [facility] Comment on above: Performed By: #### M 100.678 #### [facility] [address] [place], [address] MCV (RBC) [Entitic vol] 92.5 fL Normal 81-99 [facility] Comment on above: Performed By: #### M 100.678 #### [facility] [address] [place], [address] Monocytes/100 WBC (Bld) 8.1 % Normal 0-10 [facility] Comment on above: Performed By: #### M 100.678 #### [facility] [address] [place], [address] Neutrophils/100 WBC (Bld) 83.6 % High 47-70 [facility] Comment on above: Performed By: #### M 100.678 #### [facility] [address] [place], [address] Nucleated RBC (Bld) [#/Vol] 0 10*3/uL Normal 0-5 [facility] Comment on above: Performed By: #### M 100.678 #### [facility] [address] [place], [address] Platelet mean volume (Bld) [Entitic vol] 12.9 fL High 6.2-12.0 [facility] Comment on above: Performed By: #### M 100.678 #### [facility] [address] [place], [address] Platelets (Bld) [#/Vol] 88 10*3/uL Low 150-450 [facility] Comment on above: Performed By: #### M 100.678 #### [facility] [address] [place], [address] RBC (Bld) [#/Vol] 3.08 10*6/uL Low 4.2-5.4 [facility] Comment on above: Performed By: #### M 100.678 #### [facility] [address] [place], [address] RDW SD 49.5 fl High 35.1-43.9 [facility] Comment on above: Performed By: #### M 100.678 #### [facility] [address] [place], [address] WBC (Bld) [#/Vol] 10.9 10*3/uL Normal 4.4-11.0 [facility] Comment on above: Performed By: #### M 100.678 #### [facility] [address] [place], [address] Influenza virus A and B and SARS-CoV-2 (COVID-19) and Respiratory syncytial virus RNAOrdered By: Jemima Poe on 08-26-2024 SARS-CoV-2 (COVID-19) RNA STEPHANIE+probe Ql (Unsp spec) [facility] M100.678on 08-26-2024 M100.678 Comments: use curren t specimen SARS-CoV-2 (COVID 19) Negative INFLUENZA A Negative INFLUENZA B Negative RSV PCR Negative Normal [facility] Comment on above: Performed By: #### L 500.2500, L100.0100, L501.5425, L503.6620 #### [facility] [address] [place], [address] Magnesiumon 08-26-2024 Magnesium [Mass/Vol] 2.2 mg/dL Normal 1.5-2.2 [facility] Comment on above: Performed By: #### M 100.638 #### [facility] [address] [place], [address] Magnesium measurement (mass/ volume)Ordered By: Jimbo Ibarra on 08-26-2024 Magnesium (Unsp spec) [Mass/Vol] 2.2 mg/dL 1.5-2.2 [facility] 36on 08-25-2024 36 Note faxed Normal [facility] Bilirubin, totalOrdered By: Jemima Poe on 08-25-2024 Bilirubin [Mass/Vol] 0.79 mg/dL 0.00-1.30 [facility] CBC W/Diff, Automatedon 08-13 Absolute Lymph 0.75 X10 3/uL Low 0.83-4.51 [facility] Comment on above: Performed By: #### M 100.678 #### [facility] [address] [place], [address] Absolute Neut 11.1 X10 3/uL High 2.0-7.7 [facility] Comment on above: Performed By: #### M 100.678 #### [facility] [address] [place], [address] Basophils/100 WBC (Bld) 0.1 % Normal 0-1 [facility] Comment on above: Performed By: #### M 100.678 #### [facility] [address] [place], [address] Eosinophils/100 WBC (Bld) 0.0 % Normal 0-5 [facility] Comment on above: Performed By: #### M 100.678 #### [facility] [address] [place], [address] Erythrocyte distribution width (RBC) [Ratio] 14.8 % High 11.6-14.6 [facility] Comment on above: Performed By: #### M 100.678 #### [facility] [address] [place], [address] Hematocrit (Bld) [Volume fraction] 31.3 % Low 37-47 [facility] Comment on above: Performed By: #### M 100.678 #### [facility] [address] [place], [address] Hemoglobin (Bld) [Mass/Vol] 9.5 g/dL Low 12.0-15.0 [facility] Comment on above: Performed By: #### M 100.678 #### [facility] [address] [place], [address] IG% 1.300 High 0.0-0.9 [facility] Comment on above: Result Comment: IG% - Immature Granulocytes (promyelocytes, myelocytes and metamyelocytes) > 1% indicates that a LEFT SHIFT is Present. Performed By: #### M 100.678 #### [facility] [address] [place], [address] Lymphocytes/100 WBC (Bld) 6.0 % Low 19-41 [facility] Comment on above: Performed By: #### M 100.678 #### [facility] [address] [place], [address] MCH (RBC) [Entitic mass] 28.2 pg Normal 27.0-32.0 [facility] Comment on above: Performed By: #### M 100.678 #### [facility] [address] [place], [address] MCHC (RBC) [Mass/Vol] 30.4 g/dL Low 32-36 [facility] Comment on above: Performed By: #### M 100.678 #### [facility] [address] [place], [address] MCV (RBC) [Entitic vol] 92.9 fL Normal 81-99 [facility] Comment on above: Performed By: #### M 100.678 #### [facility] [address] [place], [address] Monocytes/100 WBC (Bld) 3.5 % Normal 0-10 [facility] Comment on above: Performed By: #### M 100.678 #### [facility] [address] [place], [address] Neutrophils/100 WBC (Bld) 89.1 % High 47-70 [facility] Comment on above: Performed By: #### M 100.678 #### [facility] [address] [place], [address] Nucleated RBC (Bld) [#/Vol] 0 10*3/uL Normal 0-5 [facility] Comment on above: Performed By: #### M 100.678 #### [facility] [address] [place], [address] Platelet mean volume (Bld) [Entitic vol] 13.2 fL High 6.2-12.0 [facility] Comment on above: Performed By: #### M 100.678 #### [facility] [address] [place], [address] Platelets (Bld) [#/Vol] 88 10*3/uL Low 150-450 [facility] Comment on above: Performed By: #### M 100.678 #### [facility] [address] [place], [address] RBC (Bld) [#/Vol] 3.37 10*6/uL Low 4.2-5.4 [facility] Comment on above: Performed By: #### M 100.678 #### [facility] [address] [place], [address] RDW SD 50.0 fl High 35.1-43.9 [facility] Comment on above: Performed By: #### M 100.678 #### [facility] [address] [place], [address] WBC (Bld) [#/Vol] 12.4 10*3/uL High 4.4-11.0 [facility] Comment on above: Performed By: #### M 100.678 #### [facility] [address] [place], [address] Comprehensive Metabolic Prof [facility] 08-25-2024 Albumin [Mass/Vol] 4.4 g/dL Normal 3.4-4.8 [facility] Comment on above: Performed By: #### M 100.678 #### [facility] [address] [place], [address] Albumin/Globulin [Mass ratio] 1.9 {ratio} Normal 0.9-2.4 [facility] Comment on above: Performed By: #### M 100.678 #### [facility] [address] [place], [address] ALK PHOS 92 U/L Normal 35-104 [facility] Comment on above: Performed By: #### M 100.678 #### [facility] [address] [place], [address] ALT [Catalytic activity/Vol] 11 U/L Normal <=34 [facility] Comment on above: Performed By: #### M 100.678 #### [facility] [address] [place], [address] AST [Catalytic activity/Vol] 16 U/L Normal <=31 [facility] Comment on above: Result Comment: Hemo lysis present, Results??could be affected. ?? Performed By: #### M 100.678 #### [facility] [address] [place], [address] Bilirubin [Mass/Vol] 0.79 mg/dL Normal 0.00-1.30 [facility] Comment on above: Performed By: #### M 100.678 #### [facility] [address] [place], [address] BUN/CRE 26.3 RATIO High 10-20 [facility] Comment on above: Performed By: #### M 100.678 #### [facility] [address] [place], [address] Calcium [Mass/Vol] 10.0 mg/dL Normal 7.6-11.0 [facility] Comment on above: Performed By: #### M 100.678 #### [facility] [address] [place], [address] Chloride [Moles/Vol] 102 mmol/L Normal 98-108 [facility] Comment on above: Performed By: #### M 100.678 #### [facility] [address] [place], [address] CO2 [Moles/Vol] 24.8 mmol/L Normal 21.0-32.0 [facility] Comment on above: Performed By: #### M 100.678 #### [facility] [address] [place], [address] Creatinine [Mass/Vol] 0.78 mg/dL Normal 0.70-1.20 [facility] Comment on above: Performed By: #### M 100.678 #### [facility] [address] [place], [address] ECRCL 65.27 ml/min Normal 50-250 [facility] Comment on above: Performed By: #### M 100.678 #### [facility] [address] [place], [address] GAP 16 High 5-15 [facility] Comment on above: Performed By: #### M 100.678 #### [facility] [address] [place], [address] GFR/1.73 sq M.predicted among non-blacks MDRD (S/P/Bld) [Vol rate/Area] 81 mL/min/{1.73_m2} Normal >60 [facility] Comment on above: Result Comment: mL/m in/1.73m2 CKD-EPI Creatinine Equation (2020) Performed By: #### M 100.678 #### [facility] [address] [place], [address] Globulin (S) [Mass/Vol] 2.4 g/dL Normal 2.2-4.2 [facility] Comment on above: Performed By: #### M 100.678 #### [facility] [address] [place], [address] Glucose [Mass/Vol] 160 mg/dL High 70-99 [facility] Comment on above: Performed By: #### M 100.678 #### [facility] [address] [place], [address] Potassium [Moles/Vol] 4.9 mmol/L Normal 3.3-5.1 [facility] Comment on above: Result Comment: Hemo lysis present, Results??could be affected. ?? Performed By: #### M 100.678 #### [facility] [address] [place], [place], [address] Sodium [Moles/Vol] 143 mmol/L Normal 133-145 [facility] Comment on above: Performed By: #### M 100.678 #### [facility] [address] [place], [place], [address] T PROT 6.7 g/dL Normal 5.9-8.4 [facility] Comment on above: Performed By: #### M 100.678 #### [facility] [address] [place], [place], [address] Urea nitrogen [Mass/Vol] 20 mg/dL High 4-19 [facility] Comment on above: Performed By: #### M 100.678 #### [facility] [address] [place], [place], [address] L499.0043on 08-25-2024 Trop T High Sen 15 ng/L High <=14 [facility] Comment on above: Performed By: #### M 100.638 #### [facility] [address] [place], [place], [address] Laboratory - Chemistry and C hemistry - challengeOrdered By: Jemima Poe on 08-25-2024 AST [Catalytic activity/Vol] 16 U/L <32 [facility] Comment on above: Hemolysis present, R esults could be affected. Lactic Acidon 08-25-2024 Lactate [Moles/Vol] 1.0 mmol/L Normal 0.0-2.0 [facility] Comment on above: Order Comment: Y Performed By: #### M 100.638 #### [facility] [address] [place], [place], [id number] Legionella Antigen Urineon 0 08-25-2024 LEGU Comments: Only Recommended for severe cases of pneumonia Only Recommended for severe cases of pneumonia Legionella Ag, Urine Negative (See interpretation below) Normal [facility] Comment on above: Performed By: #### M 300.4500, M300.4600 #### [facility] [address] [place], [address] Magnesiumon 08-25-2024 Magnesium [Mass/Vol] 2.2 mg/dL Normal 1.5-2.2 [facility] Comment on above: Performed By: #### M 100.678 #### [facility] [facility] [address] [place], [address] Phosphoruson 08-25-2024 Phosphate [Mass/Vol] 4.1 mg/dL Normal 2.7-4.5 [facility] Comment on above: Performed By: #### M 100.678 #### [facility] [address] [place], [address] RESPIRATORY PANEL MOLECULARo n 08-25-2024 RP PANEL Copy of report sent to Infection Control Printer [id number] 08/25/24 1054 [facility]. Normal Reference Range = Not Detected Resp path DNA+RNA Pnl Resp STEPHANIE+probe Nucleic acid amplification test method RESULTS CALLED TO LFORREST 08/25/24 0531 Serjio Maldonado. REPORT READ BACK BY SAME. ADENOVIRUS Not Detected INFLUENZA A Not Detected INFLUENZA A (SUBTYPE H1) Not Detected INFLUENZA A (SUBTYPE H3) Not Detected INFLUENZA B Not Detected HUMAN METAPHNEUMO Not Detected PARAINFLUENZA 1 Not Detected PARAINFLUENZA 2 Not Detected PARAINFLUENZA 3 Not Detected PARAINFLUENZA 4 A Positive for PARAINFLUENZA 4 by NAAT technology A RHINOVIRUS Not Detected RSV A Not Detected RSV B Not Detected PARAINFLUENZA 4 Normal [facility] Comment on above: Performed By: #### L 500.2500, L100.0100, L501.5425, L503.6620 #### [facility] [address] [place], [address] Respiratory pathogens detect ion panel by molecular detection methodOrdered By: Jemima Poe on 08-25-2024 Respiratory pathogens DNA and RNA panel STEPHANIE+probe (Resp) Parainfluenza 4 Abnormal [facility] Serum globulin measurementOr dered By: Jemima Poe on 08-25-2024 Globulin (S) [Mass/Vol] 2.4 g/dL 2.2-4.2 [facility] Serum or plasma alanine bradley otransferase (ALT) measurementOrdered By: Jemima Poe on 08-25-2024 ALT [Catalytic activity/Vol] 11 U/L <35 [facility] Serum or plasma albumin betzaida urement (mass/volume)Ordered By: Jemima Poe on 08-25-2024 Albumin [Mass/Vol] 4.4 g/dL 3.4-4.8 [facility] Serum or plasma albumin/glob ulin mass ratioOrdered By: Jemima Poe on 08-25-2024 Albumin/Globulin [Mass ratio] 1.9 {ratio} 0.9-2.4 [facility] Serum or plasma alkaline jose sphatase measurementOrdered By: Jemima Poe on 08-25-2024 ALP [Catalytic activity/Vol] 92 U/L 35-104 [facility] Strep pneumoniae Antig(UR,CS F)on 08-25-2024 STPAG Comments: Only Recommended for severe cases of pneumonia Strep pneumo Test Negative URINE (See interpretation below) Normal [facility] Comment on above: Performed By: #### M 300.4500, M300.4600 #### [facility] [address] [place], [place], [id number] Total proteinOrdered By: Elysia Peo on 08-25-2024 Protein [Mass/Vol] 6.7 g/dL 5.9-8.4 [facility] Vitamin D,25 Hydroxyon 08-25 Vitamin D 25-OH 35.9 ng/mL Normal 30-100 [facility] Comment on above: Result Comment: Inez min D Status Deficiency: <20 ng/mL (50nmol/L) Insufficiency: 20-30 ng/mL (50-75 nmol/L) Sufficiency: 30-100 ng/mL (75-250 nmol/L) Toxicity: >100 ng/mL (>250 nmol/L) Performed By: #### M 300.4500, M300.4600 #### [facility] [address] [place], [address] 12 Lead EKGon 08-24-2024 12 Lead EKG [facility] Cardiovascular Services [address] [place] [address] 12 Lead EKG 08/24/242010 MR#: [id number] Acct: [id number] Name: ALTA BAKER Rep #: [id number] : 1950 74 From: Jermaine Hagen MD Attending Dr: Dr. Jimbo Ibarra MD Status : DIS IN Ordering Dr: John Paul Harrison DO Date: 08/24/24 Location: [facility] Sex: F C Admitted: 08/24/24 Test Reason : DYSRYTHMIA Blood Pressure : */* mmHG Vent. Rate : 113 BPM Atrial Rate : * BPM P-R Int : * ms QRS Dur : 72 ms QT Int : 314 ms P-R-T Axes : * 57 39 degrees QTcB Int : 430 ms Atrial fibrillation with rapid ventricular response Low voltage QRS Abnormal ECG When compared with ECG of 02-Jun-2024 10:54, No significant change was found Confirmed by XIAO POLANCO, JERMAINE ([id number]), acquisition editor KELLIE RODRIGUEZ ([id number]) on 08/30/2024 7:28:43 AM Referred By: John Paul Harrison Confirmed By: JERMAINE HAGEN MD 08/30/24 0728 Date Jermaine Hagen MD CC: Dr. John Paul Harrison DO; Dr. Kory Ibarra DO; Dr. Jimbo Ibarra MD Signed [facility] 36on 08-24-2024 36 Normal [facility] 36 Left message for pat ient to return call to the office. Please release information to the patient. [facility] Absolute lymphocyte countOrd ered By: John Paul Harrison on 08-24-2024 Lymphocytes Auto (Unsp spec) [#/Vol] 1.59 10*3/uL 0.83-4.51 [facility] Absolute neutrophil countOrd ered By: John Paul Harrison on 08-24-2024 Neutrophils (Bld) [#/Vol] 10.1 10*3/uL High 2.0-7.7 [facility] Anion gap in Serum or Plasma Ordered By: John Paul Harrison on 08-24-2024 Anion gap [Moles/Vol] 10 mmol/L 5-15 [facility] Automated lymphocyte count a s percentage of total leukocytesOrdered By: John Paul Harrison on 08-24-2024 Lymphocytes/100 WBC Auto (Unsp spec) 9.7 % Low 19-41 [facility] BUN/creatinine ratioOrdered By: John Paul Harrison on 08-24-2024 Urea nitrogen/Creatinine [Mass ratio] 26.2 mg/mg High 10-20 [facility] Basic Metabolic Profile (BMP )on 08-24-2024 BUN/CRE 26.2 RATIO High 10-20 [facility] Comment on above: Performed By: #### L 500.4050 #### [facility] [address] [place], [address] Calcium [Mass/Vol] 9.9 mg/dL Normal 7.6-11.0 [facility] Comment on above: Performed By: #### L 500.4050 #### [facility] [address] [place], [address] Chloride [Moles/Vol] 102 mmol/L Normal 98-108 [facility] Comment on above: Performed By: #### L 500.4050 #### [facility] [address] [place], [address] CO2 [Moles/Vol] 31.5 mmol/L Normal 21.0-32.0 [facility] Comment on above: Performed By: #### L 500.4050 #### [facility] [address] [place], [address] Creatinine [Mass/Vol] 0.72 mg/dL Normal 0.70-1.20 [facility] Comment on above: Performed By: #### L 500.4050 #### [facility] [address] [place], [address] ECRCL 65.67 ml/min Normal 50-250 [facility] Comment on above: Performed By: #### L 500.4050 #### [facility] [address] [place], [address] GAP 10 Normal 5-15 [facility] Comment on above: Performed By: #### L 500.4050 #### [facility] [address] [place], [address] GFR/1.73 sq M.predicted among non-blacks MDRD (S/P/Bld) [Vol rate/Area] 89 mL/min/{1.73_m2} Normal >60 [facility] Comment on above: Result Comment: mL/m in/1.73m2 CKD-EPI Creatinine Equation (2020) Performed By: #### L 500.4050 #### [facility] [address] [place], [address] Glucose [Mass/Vol] 89 mg/dL Normal 70-99 [facility] Comment on above: Performed By: #### L 500.4050 #### [facility] [address] [place], [address] Potassium [Moles/Vol] 4.7 mmol/L Normal 3.3-5.1 [facility] Comment on above: Result Comment: Hemo lysis present, Results??could be affected. ?? Performed By: #### L 500.4050 #### [facility] [address] [place], [address] Sodium [Moles/Vol] 143 mmol/L Normal 133-145 [facility] Comment on above: Performed By: #### L 500.4050 #### [facility] [address] [place], [address] Urea nitrogen [Mass/Vol] 19 mg/dL Normal 4-19 [facility] Comment on above: Performed By: #### L 500.4050 #### [facility] [address] [place], [place], [address] Basophil percentageOrdered B y: John Paul Harrison on 08-24-2024 Basophils/100 WBC (Bld) 0.2 % 0-1 [facility] Bilirubin Test strip Ql (U)O rdered By: John Paul Harrison on 08-24-2024 Bilirubin Ql (U) Negative Negative [facility] Blood manual differential co mment interpretation (narrative result)Ordered By: John Paul Harrison on 08-24-2024 Manual differential comment Willis (Bld) [Interp] SCANNED [facility] Comment on above: MONOCYTOSIS NOTED CBC W/Diff, Automatedon 08-13 PLT EST MOD DEC Normal ADEQ [facility] Comment on above: Performed By: #### M 100.678 #### [facility] [address] [place], [place], [id number] SMEAR COMMENT SCANNED Normal [facility] Comment on above: Result Comment: MONO CYTOSIS NOTED Performed By: #### M 100.678 #### [facility] [address] [place], [place], [address] Carbon dioxide, total [Moles /volume] in Central venous bloodOrdered By: John Paul Harrison on 08-24-2024 CO2 [Moles/Vol] 31.5 mmol/L 21.0-32.0 [facility] Chest PA and Lateralon 08-24 Chest PA and Lateral [facility] Imaging Services [address] [place], [place] [address] Chest PA and Lateral MR#: [id number] Acct: [id number] Name: ALTA BAKER Vickie Rep #: [id number] : 1950 F 74 From: Milagros Madrid nd, MD PCP: Dr. Kory Ibarra, DO Status: REG ER Study: Chest PA and Lateral Date of Exam: 08/24/24 Exam# [id number] Ordering Dr: John Paul Harrison DO PROCEDURE: CHEST PA AND LATERAL 08/24/2024 REASON FOR EXAM: DYSPNEA TECHNIQUE: Frontal and lateral views of the chest. COMPARISON: Chest radiograph 06/02/2024. FINDINGS: Hardware: None. Heart: Stable severe cardiomegaly with pulmonary vascular congestion. Mediastinum: The mediastinal contour is stable and grossly obscured. Lungs: Opacification within the right middle lobe. No large pleural effusion or pneumothorax. Bones: Degenerative changes are identified within the thoracic spine. RAD/Chest PA and Lateral IMPRESSION: Opacification of the right middle lobe, which may reflect pneumonitis/pneumonia. Stable severe cardiomegaly. Reading Location: [id number] CC: Dr. John Paul Harrison DO; Dr. Kory Ibarra DO [place] Worker: Signed Normal [facility] Chest without Contraston Chest without Contrast [facility] Imaging Services [address] [place] [address] Chest without Contrast MR#: [id number] Acct: [id number] Name: ALTA BAKER Rep #: [id number] : 1950 F 74 From: Kristina rowley MD PCP: Dr. Kory Ibarra DO Status: ADM IN Study: Chest without Contrast Date of Exam: 08/24/24 Exam# [id number] Ordering Dr: Jemima Poe DO PROCEDURE: CHEST WITHOUT CONTRAST 08/24/2024 REASON FOR EXAM: HYPOXIA TECHNIQUE: Chest CT without contrast. Coronal and Sagittal reconstruction series were provided. One or more dose reduction techniques were used (e.g., Automated exposure control, adjustment of the mA and/or kV according to patient size, use of iterative reconstruction technique RADIATION DOSE SUMMARY: CTDlvol: 16.59 mGy DLP: 596 mGycm COMPARISON: Chest radiograph on 08/24/2014. FINDINGS: Moderate cardiomegaly. Mild pericardial effusion. Minimal bilateral pleural effusions. Passive atelectatic airspace disease of the lower lobes. Subsegmental atelectasis of the right middle lobe. Associated pneumonic consolidation is considered. Subsegmental atelectasis in the left lower lobe. Associated pneumonic consolidation is considered. Moderate coronary artery calcifications. Moderate interstitial pulmonary congestion. Enlarged main pulmonary artery, probably pulmonary arterial hypertension. Osteopenia. Severe subacute benign osteoporotic compression fracture of T12 vertebral body with mild associated retropulsion and increased dorsal kyphosis. Diffuse spondylosis. Hepatomegaly. Diffuse irregularity of the hepatic contour, probably chronic. Normal unenhanced main pulmonary artery and right and left pulmonary arteries. Normal bilateral peripheral pulmonary arteries. Calcified atheromatous plaques of the thoracic aorta and visualized great vessels. There is no demonstrated aortic aneurysm. Normal mediastinum. Normal hilar regions. Normal visualized trachea and bronchi. CT/Chest without Contrast IMPRESSION: IMPRESSION: Coronary artery calcification (CAC) is is present Moderate cardiomegaly. Mild pericardial effusion. Minimal bilateral pleural effusions. Passive atelectatic airspace disease of the lower lobes. Subsegmental atelectasis of the right middle lobe. Associated pneumonic consolidation is considered. Subsegmental atelectasis in the left lower lobe. Associated pneumonic consolidation is considered. Moderate coronary artery calcifications. Moderate interstitial pulmonary congestion. Enlarged main pulmonary artery, probably pulmonary arterial hypertension. Osteopenia. Severe subacute benign osteoporotic compression fracture of T12 vertebral body with mild associated retropulsion and increased dorsal kyphosis. Diffuse spondylosis. Hepatomegaly. Diffuse irregularity of the hepatic contour, probably chronic. Reading Location: [place] [address] CC: Dr. Kory Ibarra DO; Dr. Jemima Poe DO [place] Worker: Signed Normal [facility] Chloride assayOrdered By: Pravin Harrison on 08-24-2024 Chloride [Moles/Vol] 102 mmol/L 98-108 [facility] Emergency Department Summary on 08-24-2024 Emergency Department Summary [facility] Medical Records Department [address] [place] [address] Emergency Department Summary 08/24/24 MR#: [id number] Acct: [id number] Name: ALTA BAKER Rep #: [id number] : 1950 74 From: John Paul Harrison DO PCP: Dr. Kory Ibarra DO Status:REG ER Location: ED HPI History of Present Illness Chief Complaint: Shortness of Breath Informant: patient Onset/Context/Timing Onset: Weeks (1) Context: gradual Timing: Continuous Quality: Positive for Dyspnea on exertion and Orthopnea (Two-pillow) Worsened by: Exertion and Lying flat Relieved by: Albuterol Associated Symptoms cough; Negative for rhinorrhea, post nasal drip, ear pain, fever, sore throat, chills, sweats, clear sputum, white sputum, yellow sputum or green sputum Chest Pain: Positive for None Narrative Narrative: Patient presents with shortness of breath that has been getting worse over the past week. Patient states her breathing is worse with any exertion. Patient states she can only walk a few feet before she becomes short of breath and has to stop. Patient admits to a cough but denies any sputum production. Patient states that he did have some brown sputum earlier this week but this has resolved. Patient denies any fevers or chills. Patient denies any rhinorrhea or sore throat. Patient denies any chest pain. PE Risk Factors: Negative for Cancer, OCP + Smoking + > 35, Prior DVT or PE, Recent immobilization, Recent surgery or Recent travel [facility] Medical History Congestive heart failure (CHF) Anxiety Pulmonary embolism [...] 40 mg PO BID diuretic 10/27/1305/01 History lisinopril 10 mg tablet 20 mg PO DAILY blood pressure 01/1307/14/16 History atorvastatin 10 mg tablet 10 mg PO [...] extended release 12 hr (Mucus Relief ER) folic acid 1 mg tablet 1 mg PO DAILY see PCP 05/25/24 Unk nown History sertraline 50 mg tablet 50 mg PO QHS mental health 5 Unknown History docusate sodium 100 mg capsule 100 mg PO BID PRN constipation Unknown History (Col-Rite) albuterol sulfate 90 mcg/actuation 1 inh inhalation Q6H #6.7 grams 06/05/24 Unknown Rx aerosol inhaler diltiazem HCl 60 mg tablet 60 mg PO Q8 #120 tabs 06/05/24 Unk nown Rx metoprolol tartrate 25 mg tablet 75 mg (3 x 25 mg) PO BID #180 tabs 06/05/24 Unknown Rx prednisone 20 mg tablet 40 mg (2 x 20 mg) PO DAILY #10 tab s 06/05/24 Unknown Rx tiotropium bromide 18 mcg capsule 1 cap inhalation DAILY #30 Unknown Rx with inhalation device (Spiriva inhalations with HandiHaler) azithromycin 250 mg tablet mg PO 08/24/24 Unknown History calcitonin (salmon) 200 1 spray DAILY 08/24/24 Unknown His tory unit/actuation nasal spray ferrous sulfate 324 mg (65 mg 324 mg PO BID 08/24/24 Unknown His tory iron) tablet,delayed release ipratropium 0.5 mg-albuterol 3 mg 3 ml inhalation 08/24/24 Unknown History (2.5 mg base)/3 mL nebulization soln lisinopril 20 mg tablet 20 mg PO DAILY 08/24/24 Unknown Hi story metoprolol tartrate 100 mg tablet 200 mg PO 08/24/24 Unknown Histor y mometasone-formoterol HFA 100 inhalation 08/24/24 Unknown Histor y mcg-5 mcg/actuation aerosol inhaler (Dulera) ondansetron HCl 4 mg tablet 4 mg PO Q12H PRN PRN 08/24/24 Unkn own History nausea/vomiting potassium chloride 10 mEq 10 meq PO BID 08/24/24 Unknown His tory tablet,extended release(part/cryst) potassium chloride 20 mEq 20 meq PO DAILY 08/24/24 Unknown H istory tablet,extended release(part/cryst) risedronate 35 mg tablet mg PO 08/24/24 Unknown History tiotropium bromide 2.5 2 puff inhalation DAILY 08/24/24 U nknown History mcg/actuation mist for inhalation (Spiriva Respimat) Allergy/AdvReac Type Severity Reaction Status Date / Time bee ve (more content not included)... Normal [facility] Eosinophil percentageOrdered By: John Paul Harrison on 08-24-2024 Eosinophils/100 WBC (Bld) 0.2 % 0-5 [facility] Erythrocyte distribution wid th ratioOrdered By: John Paul Harrison on 08-24-2024 Erythrocyte distribution width (RBC) [Ratio] 14.9 % High 11.6-14.6 [facility] Erythrocyte distribution wid th standard deviationOrdered By: John Paul Harrison on 08-24-2024 Erythrocyte distribution width (RBC) [Ratio] 51.2 fl High 35.1-43.9 [facility] Glomerular filtration rate ( GFR) estimation/1.73 sq m using serum, plasma, or whole bOrdered By: John Paul Harrison on 08-24-2024 GFR/1.73 sq M.predicted among non-blacks MDRD (S/P/Bld) [Vol rate/Area] 89 mL/min/{1.73_m2} >60 [facility] Comment on above: mL/min/1.73m2 CKD-EP I Creatinine Equation (2020) H AND P Exam - [facility] 08-24-2024 H&P Exam - Hospitalist [facility] Medical Records Department [address] [place] [address] H P Exam - Hospitalist 08/24/24 2313 MR#: [id number] Acct: [id number] Name: ALTA BAKER Rep #: [id number] : 1950 74 From: Jemima Poe DO PCP: Dr. Kory Ibarra DO Status:ADM IN Location: [facility] [id number] HPI - General General Date of Admission: 08/24/24 Date of Service: 08/24/24 Chief Complaint: Shortness of breath HPI Narrative ALTA BAKER, is a 74 F who presented to the emergency department at [facility] on 08/24/2024 that she complained of shortness of breath. Patient complained of significant dyspnea on exertion and orthopnea with 2 pillows. She denies any chest pain. She has had a cough that developed over the last week that is now only starting to become productive of any sputum. She has had no fever or chills and no upper respiratory symptoms. She denies any wheezing. She does states she has had some lower extremity swelling. Unclear if she has gained any weight recently. She wears chronic oxygen for COPD at 1 to 2 L at home. She does have some conversational dyspnea on exam. Vital signs on presentation showed a temperature of 98.1, heart rate 128, respiratory was 26, blood pressure was 118/80 and pulse ox was 100% on 4 L nasal cannula as she was hypoxic on her baseline. CBC does show leukocytosis with a white count of 16.4. She does appear to have some chronic leukocytosis however. She has a chronic anemia which was stable. She has no left shift. Chemistry panel is unremarkable. Lactic acid was normal. Initial troponin was 21 with a delta of 18. BNP was 5153. Chest x-ray showed a right sided infiltrate in the right middle lobe with stable severe cardiomegaly. I did get a CT of her chest given this finding and it showed moderate cardiomegaly with a mild pericardial effusion, minimal bibasilar pleural effusions with atelectatic airspace disease in the lower lobes right middle lobe and left middle lobe with associated pneumonic consolidation to be considered. It was felt she also had moderate interstitial pulmonary congestion. Overall, I highly think that this is more likely an acute exacerbation of CHF however with the infiltrate on chest x-ray and CT as well as leukocytosis we will be prudent to start antibiotics as well. Do not think she needs steroids at this time as she is not wheezing diffusely on exam. [facility] Medical History (Updated 08/25/24 @ 03:[address] Jemima Poe, DO) Thrombocytopenia Anemia Congestive heart failure (CHF) Anxiety Pulmonary embolism [...] 40 mg PO BID diuretic 10/27/1305/01 History lisinopril 10 mg tablet 20 mg PO DAILY blood pressure 01/1307/14/16 History atorvastatin 10 mg tablet 10 mg PO [...] extended release 12 hr (Mucus Relief ER) folic acid 1 mg tablet 1 mg PO DAILY see PCP 05/25/24 Unk nown History sertraline 50 mg tablet 50 mg PO QHS mental health 5 Unknown History docusate sodium 100 mg capsule 100 mg PO BID PRN constipation Unknown History (Col-Rite) albuterol sulfate 90 mcg/actuation 1 inh inhalation Q6H #6.7 grams 06/05/24 Unknown Rx aerosol inhaler diltiazem HCl 60 mg tablet 60 mg PO Q8 #120 tabs 06/05/24 Unk nown Rx metoprolol tartrate 25 mg tablet 75 mg (3 x 25 mg) PO BID #180 tabs 06/05/24 Unknown Rx prednisone 20 mg tablet 40 mg (2 x 20 mg) PO DAILY #10 tab s 06/05/24 Unknown Rx tiotropium bromide 18 mcg capsule 1 cap inhalation DAILY #30 Unknown Rx with inhalation device (Spiriva inhalations with HandiHaler) azithromycin 250 mg tablet mg PO 08/24/24 Unknown History calcitonin (salmon) 200 1 spray DAILY 08/24/24 Unknown His tory unit/actuation nasal spray ferrous sulfate 324 mg (65 mg 324 mg PO BID 08/24/24 Unknown His tory iron) tablet,delayed release ipratropium 0.5 mg-albuterol 3 mg 3 ml inhalation 0 (more content not included)... Normal [facility] Hematocrit Auto (Bld) [Volum e fraction]Ordered By: John Paul Harrison on 08-24-2024 Hematocrit (Bld) [Volume fraction] 31.0 % Low 37-47 [facility] Hemoglobin measurementOrdere d By: John Paul Harrison on 08-24-2024 Hemoglobin (Bld) [Mass/Vol] 9.3 g/dL Low 12.0-15.0 [facility] Immature granulocytes/100 WB C Auto (Bld)Ordered By: John Paul Harrison on 08-24-2024 Immature granulocytes/100 WBC (Bld) 0.900 % 0.0-0.9 [facility] Comment on above: IG% - Immature Granu locytes (promyelocytes, myelocytes and metamyelocytes) > 1% indicates that a LEFT SHIFT is Present. Ketones Test strip Ql (U)Ord ered By: John Paul Harrison on 08-24-2024 Ketones Ql (U) Negative Negative [facility] L499.0042on 08-24-2024 Trop T High Sen 18 ng/L High <=14 [facility] Comment on above: Performed By: #### M 300.4500, M300.4600 #### [facility] Laboratory [address] [place], [place], [address] L501.4021on 08-24-2024 Trop T High Sen 21 ng/L High <=14 [facility] Comment on above: Performed By: #### M 100.678 #### [facility] [facility] [address] [place], [place], [address] [id number] 08-24-2024 Natriuretic peptide B (Bld) [Mass/Vol] 5153 pg/mL High <=900 [facility] Comment on above: Result Comment: Hear t Failure Unlikely: < 300 pg/mL Heart Failure Likely < 50 Years: > 450 pg/mL 50-75 Years: > 900 pg/mL >75 Years: > 1800 pg/mL Performed By: #### L 500.4050 #### [facility] [address] [place], [place], [id number] Lactic acid measurementOrder ed By: Jemima Poe on 08-24-2024 Lactate [Moles/Vol] 1.0 mmol/L 0.0-2.0 [facility] MCV (mean corpuscular volume ) determinationOrdered By: John Paul Harrison on 08-24-2024 MCV (RBC) [Entitic vol] 92.8 fL 81-99 [facility] Mean corpuscular hemoglobin (MCH) determinationOrdered By: John Paul Harrison on 08-24-2024 MCH (RBC) [Entitic mass] 27.8 pg 27.0-32.0 [facility] Mean corpuscular hemoglobin concentration (MCHC) determinationOrdered By: John Paul Harrison on 08-24-2024 MCHC (RBC) [Mass/Vol] 30.0 g/dL Low 32-36 [facility] Mean platelet volume determi nationOrdered By: John Paul Harrison on 08-24-2024 Platelet mean volume (Bld) [Entitic vol] 12.9 fL High 6.2-12.0 [facility] Microscopic analysis of urin e for red blood cells (RBC)Ordered By: John Paul Harrison on 08-24-2024 Microscopic analysis of urine for red blood cells (RBC) 0-5 SEEN /hpf 0-5 [facility] Monocyte percentageOrdered B y: John Paul Harrison on 08-24-2024 Monocytes/100 WBC (Bld) 27.2 % High 0-10 [facility] Mucus LM Ql (Urine sed)Order ed By: John Paul Harrison on 08-24-2024 Mucus Ql (Urine sed) 0 SEEN /hpf [facility] Natriuretic peptide.B prohor olamide N-Terminal [Mass/volume] in Serum or PlasmaOrdered By: John Paul Harrison on 08-24-2024 Natriuretic peptide.B prohormone N-Terminal [Mass/Vol] 5153 pg/mL High <900 [facility] Comment on above: Heart Failure Unlike ly: < 300 pg/mLHeart Failure Likely< 50 Years: > 450 pg/mL50-75 Years: > 900 pg/mL>75 Years: > 1800 pg/mL Neutrophil percentageOrdered By: John Paul Harrison on 08-24-2024 Neutrophils/100 WBC (Bld) 61.8 % 47-70 [facility] Nitrite Test strip Ql (U)Ord ered By: John Paul Harrison on 08-24-2024 Nitrite Ql (U) Negative Negative [facility] Nucleated red blood cell per centageOrdered By: John Paul Harrison on 08-24-2024 Nucleated RBC/100 WBC (Bld) [Ratio] 0 % 0-5 [facility] Platelet countOrdered By: Pravin Harrison on 08-24-2024 Platelets (Bld) [#/Vol] 96 10*3/uL Low 150-450 [facility] Platelet estimateOrdered By: John Paul Harrison on 08-24-2024 Platelets LM Ql (Bld) MOD DEC ADEQ [facility] Potassium measurement (mass/ volume)Ordered By: John Paul Harrison on 08-24-2024 Potassium (Unsp spec) [Mass/Vol] 4.7 mmol/L 3.3-5.1 [facility] Comment on above: Hemolysis present, R esults could be affected. Protein Test strip Ql (U)Ord ered By: John Paul Harrison on 08-24-2024 Protein Ql (U) 30 mg/dl High Negative [facility] RBC Auto (Bld) [#/Vol]Ordere d By: John Paul Harrison on 08-24-2024 RBC (Bld) [#/Vol] 3.34 10*6/uL Low 4.2-5.4 [facility] Serum creatinine measurement (mass/volume)Ordered By: John Paul Harrison on 08-24-2024 Creatinine [Mass/Vol] 0.72 mg/dL 0.70-1.20 [facility] Serum glucose measurement (m ass/volume)Ordered By: John Paul Harriosn on 08-24-2024 Glucose [Mass/Vol] 89 mg/dL 70-99 [facility] Serum or plasma calcium betzaida urement (mass/volume)Ordered By: John Paul Harrison on 08-24-2024 Calcium [Mass/Vol] 9.9 mg/dL 7.6-11.0 [facility] Serum or plasma urea nitroge n measurement (mass/volume)Ordered By: John Paul Harrison on 08-24-2024 Urea nitrogen [Mass/Vol] 19 mg/dL 4-19 [facility] Sodium levelOrdered By: John Paul Harrison on 08-24-2024 Sodium [Moles/Vol] 143 mmol/L 133-145 [facility] Squamous epithelial cells de tection in urine sediment by light microscopyOrdered By: John Paul Harrison on 08-24-2024 Epithelial cells.squamous LM Ql (Urine sed) 25-50 SEEN /hpf 5-10 [facility] Transitional cells detection in urine sediment by light microscopyOrdered By: John Paul Harrison on 08-24-2024 Transitional cells LM Ql (Urine sed) 0-5 SEEN /hpf 0-5 [facility] Troponin T.cardiac [Mass/vol ume] in Serum or Plasma by High sensitivity methodOrdered By: John Paul Harrison on 08-24-2024 Troponin T.cardiac High sensitivity method [Mass/Vol] 15 ng/L High <14 [facility] Troponin T.cardiac High sensitivity method [Mass/Vol] 18 ng/L High <14 [facility] Troponin T.cardiac High sensitivity method [Mass/Vol] 21 ng/L High <14 [facility] Comment on above: Delta: 9 on 06/02/24 -1054 Urinalysis, Completeon 08-24 EPI,TRANSITION 0-5 SEEN Normal 0-5 [facility] Comment on above: Order Comment: GRIFFIN LEIOR TO SPECIFY Performed By: #### M 100.678 #### [facility] [address] [place], [address] RBC 0-5 SEEN Normal 0-5 [facility] Comment on above: Order Comment: GRIFFIN LEIOR TO SPECIFY Performed By: #### M 100.678 #### [facility] [address] [place], [address] WBC 0-5 SEEN Normal 0-5 [facility] Comment on above: Order Comment: GRIFFIN LEIOR TO SPECIFY Performed By: #### M 100.678 #### [facility] [address] [place], [place], [id number] URIC CRYSTALS 1+ /hpf Normal [facility] Comment on above: Order Comment: GRIFFIN LEIOR TO SPECIFY Performed By: #### M 100.678 #### [facility] [address] [place], [address] EPI,SQUAMOUS 25-50 SEEN Normal 5-10 [facility] Comment on above: Order Comment: GRIFFIN CTOR TO SPECIFY Performed By: #### M 100.678 #### [facility] [address] [place], [address] BACTERIA 2+ /hpf Normal None Seen [facility] Comment on above: Order Comment: GRIFFIN CTOR TO SPECIFY Performed By: #### M 100.678 #### [facility] [address] [place], [address] Mucus Ql (Urine sed) 0 SEEN Normal [facility] Comment on above: Order Comment: GRIFFIN CTOR TO SPECIFY Performed By: #### M 100.678 #### [facility] [address] [place], [address] Urine Legionella pneumophila antigen detectionOrdered By: Jemima Poe on 08-24-2024 L. pneumophila Ag Ql (U) [facility] Urine clarityOrdered By: Alex Harrison on 08-24-2024 Clarity (U) Clear Clear [facility] Urine color determinationOrd ered By: John Paul Harrison on 08-24-2024 Color (U) Yellow Yellow [facility] Urine glucose detectionOrder ed By: John Paul Harrison on 08-24-2024 Glucose Ql (U) Normal mg/dl Normal [facility] Urine leukocyte esterase det ection by dipstickOrdered By: John Paul Harrison on 08-24-2024 Leukocyte esterase Test strip Ql (U) 100 /ul High Negative [facility] Urine pHOrdered By: John Paul hussein on 08-24-2024 pH (U) 5.0 [pH] 5.0 - 8.0 [facility] Urine sediment bacteria coun t by microscopy (number/high power field)Ordered By: John Paul Harrison on 08-24-2024 Bacteria LM.HPF (Urine sed) [#/Area] 2 /[HPF] None Seen [facility] Urine sediment uric acid cry stal count by microscopy (number/high power field)Ordered By: John Paul Harrison on 08-24-2024 Urate crystals LM.HPF (Urine sed) [#/Area] 1 /[HPF] [facility] Urine specific gravity measu rementOrdered By: John Paul Harrison on 08-24-2024 Specific gravity (U) [Rel density] 1.020 1.002-1.030 [facility] Urine urobilinogen measureme ntOrdered By: John Paul Harrison on 08-24-2024 Urobilinogen Ql (U) Normal mg/dl Normal [facility] White blood cell (WBC) count Ordered By: John Paul Harrison on 08-24-2024 WBC (Bld) [#/Vol] 16.4 10*3/uL High 4.4-11.0 [facility] White blood cell countOrdere d By: John Paul Harrison on 08-24-2024 White blood cell count 0-5 SEEN /hpf 0-5 [facility] 36on 08-23-[address] [facility] 36on 08-21-2024 36 Called patient and l jefft voicemail regarding rx sent to pharmacy. Please relay message to patient. [facility] 36 [facility] Progress Noteon 08-15-[address] [facility] 36on 08-14-[address] [facility] 36 Placed call to shari nt. Unable to reach them by phone to discuss lab results. Left detailed message to return call to discuss results. Please release information to patient [facility] 36 [facility] CNOVon 08-09-2024 CNOV Office Visit ([facility] ) ----- ALTA BAKER ([id number]) 1950 F Date Time Provider Department 08/09/24 2:15 PM MIRANDA MARION [facility] During your visit today, we recorded the following information about you: Temperature Pulse Respiration Blood pressure 96.9 degrees 100/minute 20/minute 122/72 Weight 100.1 kg Miranda Marion APRN.CNP 08/09/2024 3:16 PM Signed [facility] [...] past surgical history on file. ALLERGIES Oxycodone, Msrvijr-Evg-Waq Reductase Inhibitors, and Tetanus And Diphtheria Toxoids [...] abnormality Dictated by : MD Miranda ARORA APRN.MOVE COORDINATOR History and Record Review External record(s) reviewed: prior outpatient record and prior labs/imaging. Disposition The patient was discharged. Procedures Allergies As of Date: 08/09/2024 Noted Allergy Reaction OXYCODONE 07/27/2017 1 - Mental Status Change Comments: Did not like the feeling HFNYDSB-BIF-DEJ REDUCTASE INHIBIT*07/07/2016 17 - Myalgia TETANUS AND DIPHTHERIA TOXOIDS 01/31/2019 7 - Swelling Date Reviewed: 08/09/2024 Reviewed by: Ya Berry MA - Fully Assessed Reason for Visit: Pain (Elbow Pain) [1344] Cmt: right redness and swelling x 2 days Primary Visit Diagnosis:Skin erythema [L53.9] Other Visit Diagnosis:Right elbow pain [M25.521] Order(s):XR ELBOW GENERAL 2V AP/LAT RIGHT [1495831] Order #: [id number]. #:[id number] cephALEXin (KEFLEX) 500 mg capsuleTake 1 capsule by mouth three times a day for 7 days.Disp: 21 caps (more content not included)... Normal [facility] XR ELBOW 2V AP/LAT RTon 07-14 XR [...] without radiographic evidence of acute osseous abnormality Limehouse Worker: [facility] Transcribe Date/Time: Aug 09 2024 2:50P Dictated by : DEE DRISCOLL MD This examination was interpreted and the report reviewed and electronically signed by: DEE DRISCOLL MD on Aug 09 2024 2:51PM EST [id number] Normal [facility] XR Elbow - right AP and Late ralon 08-09-2024 IMPRESSION: Soft tissue swelling without radiographic evidence of acute osseous abnormality Limehouse Worker: [facility] Transcribe Date/Time: Aug 09 2024 2:50P [...] Soft tissue swelling. DIVISION OF RADIOLOGY Provider, [facility] - 08/09/2024 * * *Final Report* * [...] without radiographic evidence of acute osseous abnormality Limehouse Worker: [facility] Transcribe Date/Time: Aug 09 2024 2:50P Dictated by : DEE DRISCOLL MD This examination was interpreted and the report reviewed and electronically signed by: DEE DRISCOLL MD on Aug 09 2024 2:51PM EST [facility] Radiology Study observation (narrative) [facility] XR Elbow - right AP and Late ralOrdered By: Ccf Provider on 08-09-2024 [facility] BASIC METABOLIC PANELon 07-14 Anion gap [Moles/Vol] 9 mmol/L Normal 3-13 [facility] Comment on above: Performed By: #### L [id number] ####Digital Watch Assembler: VIVIAN PANTOJA ([id number])[facility] ([facility])[address] [place] [address] Calcium [Mass/Vol] 9.7 mg/dL Normal 8.8-10.0 [facility] Comment on above: Performed By: #### L [id number] ####Digital Watch Assembler: VIVIAN PANTOJA ([id number])[facility] (SWRLAB)[address] [place] [address] [place] Chloride [Moles/Vol] 107 mmol/L Normal 98-107 [facility] Comment on above: Performed By: #### L AB15 ####Digital Watch Assembler: VIVIAN PANTOJA ([id number])[facility] [place] [facility] (SWRLAB)[address] [place] [address] [place] CO2 [Moles/Vol] 26 mmol/L Normal 23-31 [facility] Comment on above: Performed By: #### L [id number] ####Digital Watch Assembler: VIVIAN PANTOJA ([id number])[facility] (SWRLAB)[address] [place] [address] [place] Creatinine [Mass/Vol] 0.92 mg/dL Normal 0.57-1.11 [facility] Comment on above: Performed By: #### L [id number] ####Digital Watch Assembler: VIVIAN PANTOJA ([id number])[facility] [place] [facility] (SWRLAB)[address] [place] [address] GLOMERULAR FILTRATION RATE ML/MIN/1.73 SQ M.PREDICTED 65.9 mL/min/1.73m*2 Normal >60.0 [facility] Comment on above: Result Comment: Calc ulation based on the Chronic Kidney Disease Epidemiology Collaboration (CKD-EPI) equation refit without adjustment for race Performed By: #### L [id number] ####Digital Watch Assembler: VIVIAN PANTOJA ([id number])[facility] [place] (SWRLAB)[address] [place] [address] [place] Glucose [Mass/Vol] 100 mg/dL Normal 82-115 [facility] Comment on above: Performed By: #### L [id number] ####Digital Watch Assembler: VIVIAN PANTOJA ([id number])[facility] [place] [facility] (SWRLAB)[address] [place] [address] [place] Potassium [Moles/Vol] 4.6 mmol/L Normal 3.5-5.1 [facility] Comment on above: Result Comment: [facility] potassium values may be up to 0.5 mmol/L lower than serum values. Performed By: #### L AB15 ####Digital Watch Assembler: VIVIAN PANTOJA ([id number])[facility]ENTER[facility] SIDDIQUITMAN (SWRLAB)[address] [place] [address] Sodium [Moles/Vol] 142 mmol/L Normal 136-145 [facility] Comment on above: Performed By: #### L [id number] ####Digital Watch Assembler: VIVIAN PANTOJA ([id number])[facility] SIDDIQUITMAN (SWRLAB)[address] [place] [address] Urea nitrogen [Mass/Vol] 24 mg/dL High 9-23 [facility] Comment on above: Performed By: #### L [id number] ####Digital Watch Assembler: VIVIAN PANTOJA ([id number])[facility] (SWRLAB)[address] [place] [address] CBC WITH AUTO DIFFERENTIALon 08-05-2024 Basophils (Bld) [#/Vol] 0.0 10*3/uL Normal 0.0-0.2 [facility] Comment on above: Performed By: #### L [id number] ####Digital Watch Assembler: VIVIAN PANTOJA ([id number])[facility] SIDDIQUITMAN (SWRLAB)[address] [place] [address] Basophils/100 WBC (Bld) 0.2 % Normal 0.0-2.0 [facility] Comment on above: Performed By: #### L [id number] ####Digital Watch Assembler: VIVIAN PANTOJA ([id number])[facility] SIDDIQUITMAN (SWRLAB)[address] [place] [address] Eosinophils (Bld) [#/Vol] 0.0 10*3/uL Normal 0.0-0.5 [facility] Comment on above: Performed By: #### L [id number] ####Digital Watch Assembler: VIVIAN PANTOJA ([id number])[facility] (SWRLAB)[address] [place] [address] Eosinophils/100 WBC (Bld) 0.2 % Normal 0.0-6.0 [facility] Comment on above: Performed By: #### L [id number] ####Digital Watch Assembler: VIVIAN PANTOJA ([id number])[facility] (SWRLAB)[address] [place] [address] Erythrocyte distribution width (RBC) [Ratio] 15.6 % High 11.5-15.0 [facility] Comment on above: Performed By: #### L [id number] ####Digital Watch Assembler: VIVIAN PANTOJA ([id number])[facility] [place] [facility] (SWRLAB)[address] [place] [address] Hematocrit (Bld) [Volume fraction] 30.0 % Low 35.0-47.0 [facility] Comment on above: Performed By: #### L [id number] ####Digital Watch Assembler: VIVIAN PANTOJA ([id number])[facility] (SWRLAB)[address] [place] [address] Hemoglobin (Bld) [Mass/Vol] 9.2 g/dL Low 11.7-16.0 [facility] Comment on above: Performed By: #### L [id number] ####Digital Watch Assembler: VIVIAN PANTOJA ([id number])[facility] (SWRLAB)[address] [place] [address] IMMATURE GRANS % 0.5 % Normal 0.0-2.0 [facility] Comment on above: Performed By: #### L [id number] ####Digital Watch Assembler: VIVIAN PANTOJA ([id number])[facility] (SWRLAB)[address] [place] [address] IMMATURE GRANS ABSOLUTE 0.1 10*3/uL High <0.1 [facility] Comment on above: Performed By: #### L [id number] ####Digital Watch Assembler: VIVIAN PANTOJA ([id number])[facility] (SWRLAB)[address] [place] [address] Lymphocytes (Bld) [#/Vol] 1.3 10*3/uL Normal 1.0-4.3 [facility] Comment on above: Performed By: #### L [id number] ####Digital Watch Assembler: VIVIAN PANTOJA ([id number])[facility] (SWRLAB)[address] [place] [address] Lymphocytes/100 WBC (Bld) 11.9 % Low 15.0-45.0 [facility] Comment on above: Performed By: #### L [id number] ####Digital Watch Assembler: VIVIAN PANTOJA ([id number])[facility] (SWRLAB)[address] [place] [address] MCH (RBC) [Entitic mass] 28.1 pg Normal 26.0-34.0 [facility] Comment on above: Performed By: #### L [id number] ####Digital Watch Assembler: VIVIAN PANTOJA ([id number])[facility] (SWRLAB)[address] [place] [address] MCHC 30.7 % Normal 30.5-36.0 [facility] Comment on above: Performed By: #### L [id number] ####Digital Watch Assembler: VIVIAN PANTOJA ([id number])[facility] (SWRLAB)[address] [place] [address] MCV (RBC) [Entitic vol] 91.7 fL Normal 77.0-99.0 [facility] Comment on above: Performed By: #### L [id number] ####Digital Watch Assembler: VIVIAN PANTOJA ([id number])[facility] (SWRLAB)[address] [place] [address] Monocytes (Bld) [#/Vol] 2.7 10*3/uL High 0.0-0.9 [facility] Comment on above: Performed By: #### L [id number] ####Digital Watch Assembler: VIVIAN PANTOJA ([id number])[facility] (SWRLAB)[address] [place] [address] [place] Monocytes/100 WBC (Bld) 24.3 % High 5.0-13.0 [facility] Comment on above: Performed By: #### L [id number] ####Digital Watch Assembler: VIVIAN PANTOJA ([id number])[facility] (SWRLAB)[address] [place] [address] [place] NEUTROPHILS ABSOLUTE 6.9 10*3/uL Normal 1.8-7.5 [facility] Comment on above: Performed By: #### L [id number] ####Digital Watch Assembler: VIVIAN PANTOJA ([id number])[facility] (SWRLAB)[address] [place] [address] [place] Neutrophils/100 WBC (Bld) 62.9 % Normal 38.0-82.0 [facility] Comment on above: Performed By: #### L [id number] ####Digital Watch Assembler: VIVIAN PANTOJA ([id number])[facility] (SWRLAB)[address] [place] [address] [place] NRBC 0.0 /100 WBCs Normal 0.0-2.0 [facility] Comment on above: Performed By: #### L [id number] ####Digital Watch Assembler: VIVIAN PANTOJA ([id number])[facility] (SWRLAB)[address] [place] [address] Platelet mean volume (Bld) [Entitic vol] 12.6 fL Normal 9.0-12.7 [facility] Comment on above: Result Comment: MPV is a calculated measurement using platelet volume ratio Performed By: #### L [id number] ####Digital Watch Assembler: VIVIAN PANTOJA ([id number])[facility] (SWRLAB)[address] [place] [address] [place] Platelets (Bld) [#/Vol] 120 10*3/uL Low 140-440 [facility] Comment on above: Performed By: #### L [id number] ####Digital Watch Assembler: VIVIAN PANTOJA ([id number])[facility] (SWRLAB)[address] RBC (Bld) [#/Vol] 3.27 10*6/uL Low 3.80-5.20 [facility] Comment on above: Performed By: #### L [id number] ####Digital Watch Assembler: VIVIAN PANTOJA ([id number])[facility]ENTER[facility] MARTINEZRUDDY RITTMAN (SWRLAB)[address] [place] [address] WBC (Bld) [#/Vol] 11.0 10*3/uL High 3.6-10.7 [facility] Comment on above: Performed By: #### L [id number] ####Digital Watch Assembler: VIVIAN PANTOJA ([id number])[facility] SIDDIQUITMAN (SWRLAB)[address] [place] [address] [place] IG CONCENTRATION, BLOOD (IMM UNOFIXATION ELECTROPHORESIS)on 08-05-2024 IGA, BLOOD 162 mg/dL Normal 85-600 [facility] Comment on above: Order Comment: THIS IS A CARVE-OUT TEST. SEND SPECIMEN TO [facility] FOR PROCESSING Performed By: #### L [id number] ####Digital Watch Assembler: AMAN SANTOS ([id number])[facility]ENTER[facility] DIETRICH (SBHLAB)[address] [place] [address] [place] IGG, BLOOD 531 mg/dL Low 540-1722 [facility] Comment on above: Order Comment: THIS IS A CARVE-OUT TEST. SEND SPECIMEN TO [facility] FOR PROCESSING Performed By: #### L [id number] ####Digital Watch Assembler: AMAN SANTOS ([id number])[facility] (SBHLAB)[address] [place] [address] [place] IGM, BLOOD 81 mg/dL Normal 25-265 [facility] Comment on above: Order Comment: THIS IS A CARVE-OUT TEST. SEND SPECIMEN TO [facility] FOR PROCESSING Performed By: #### L [id number] ####Digital Watch Assembler: AMAN SANTOS ([id number])[facility] DYLLAN (SBHLAB)[address] [place] [address] IMMUNOFIXATION ELECTROPHORES Nick 08-05-2024 IMMUNOFIXATION ELECTROPHORESIS See Below [facility] Comment on above: Order Comment: THIS IS A CARVE-OUT TEST. SEND SPECIMEN TO [facility] FOR PROCESSING Result Comment: A mo noclonal IgG kappa protein cannot be excluded. Low IgG level. Serum free light chain levels are recommended, if clinically indicated. Performed By: #### L [id number] ####Digital Watch Assembler: VIVIAN PANTOJA ([id number])[facility] ([facility])[address] [place] [address] RELEASED BY Vivian Pantoja M.D. [facility] Comment on above: Order Comment: THIS IS A CARVE-OUT TEST. SEND SPECIMEN TO [facility] FOR PROCESSING Result Comment: This is an appended report. These results have been appended to a previously preliminary verified report. Performed By: #### L [id number] ####Digital Watch Assembler: VIVIAN PANTOJA ([id number])[facility] ([facility])[address] [place] [address] REVIEWED BY Noe Oropeza, Ph.D. [facility] Comment on above: Order Comment: THIS IS A CARVE-OUT TEST. SEND SPECIMEN TO [facility] FOR PROCESSING Performed By: #### L [id number] ####Digital Watch Assembler: VIVIAN PANTOJA ([phone])[facility] ([facility])[address] [place] [address] 36on 08-04-2024 36 Message released to patient as written. Patient's further questions if applicable: pt received results Were all questions from office addressed or relayed to the patient from encounter: Yes [facility] 36 Placed call to patie nt. Unable to reach them by phone to discuss lab results. Left detailed message to return call to discuss results. Please release information to patient Pt also sent letter to return call to the office. Normal [facility] 36on 08-02-2024 36 Spoke with pt and sh el says she is getting her blood work done tmrw and has an apt with you on the and will discuss everything with you then. Normal [facility] 36 Normal [facility] 36on 08-01-2024 36 There are no Gastros at [facility]. Do you have someone else? Normal [facility] 36 Normal [facility] ECG 12 lead - CLINIC PERFORM EDon 07-31-2024 [facility] Progress Noteon 07-31-2024 Progress Note Normal [facility] 36on 07-28-2024 36 Noted; thank you. [facility] 36 Received via fax fro [facility] 06/02/24 EKG and 06/03/24 Echocardiogram. Report is scanned to [employer] [facility]. Normal [facility] 36 Noted; thank you. [facility] 36 Faxed request to [facility] Medical Records for report of 06/02/24 Echocardiogram. Your fax has been successfully sent to [facility] Records at [phone]. Normal [facility] 36on 07-17-2024 36 Normal [facility] 36on 07-03-[address] [facility] 36 . Normal [facility] IG CONCENTRATION BLOODon IGA, BLOOD 163 mg/dL Normal 85-600 [facility] Comment on above: Performed By: #### L [id number] ####Digital Watch Assembler: AMAN SANTOS ([phone])[facility] ([facility])[address] [place] [address] IGG, BLOOD 505 mg/dL Low 540-1722 [facility] Comment on above: Performed By: #### L [id number] ####Digital Watch Assembler: AMAN SANTOS ([id number])[facility] ([facility])[address] [place] [address] IGM, BLOOD 77 mg/dL Normal 25-265 [facility] Comment on above: Performed By: #### L [id number] ####Digital Watch Assembler: AMAN SANTOS ([id number])[facility] ([facility])[address] [place], [place] [id number] [facility] 06-26-2024 36 Normal [facility] 2906-23-2024 29 Addended by: MIGUEL AMEZCUA on: 08/05/2024 10:50 AM Modules accepted: Orders Normal [facility] 29 Addended by: DAVIS KERN on: 06/30/2024 04:36 PM Modules accepted: Orders Normal [facility] 36on 06-23-2024 36 Provider has not rev iewed the results. Once reviewed by the provider the office will reach out to patient. Normal [facility] 36 Normal [facility] CBC W Auto Differential pane l (Bld)Ordered By: Marion Bennett on 06-21-2024 Basophils (Bld) [#/Vol] 0 10*3/uL 0.0 - 0.2 10*3/uL [facility] Basophils/100 WBC (Bld) 0 % 0.0 - 2.0 % [facility] Eosinophils (Bld) [#/Vol] 0 10*3/uL 0.0 - 0.5 10*3/uL [facility] Eosinophils/100 WBC (Bld) 0.1 % 0.0 - 6.0 % [facility] Erythrocyte distribution width (RBC) [Ratio] 16.4 % High 11.5 - 15.0 % [facility] Hematocrit (Bld) [Volume fraction] 28.4 % Low 35.0 - 47.0 % [facility] Hemoglobin (Bld) [Mass/Vol] 8.6 g/dL Low 11.7 - 16.0 g/dL [facility] Immature granulocytes (Bld) [#/Vol] 0 10*3/uL NINF - 0.1 10*3/uL [facility] Immature granulocytes/100 WBC (Bld) 0.4 % 0.0 - 2.0 % [facility] Interpretation and review of laboratory results Abnormal [facility] IPF 12 [facility] Lymphocytes (Bld) [#/Vol] 1.1 10*3/uL 1.0 - 4.3 10*3/uL [facility] Lymphocytes/100 WBC (Bld) 14.7 % Low 15.0 - 45.0 % [facility] MCH (RBC) [Entitic mass] 29 pg 26.0 - 34.0 pg [facility] MCHC (RBC) [Mass/Vol] 30.3 % Low 30.5 - 36.0 % [facility] MCV (RBC) [Entitic vol] 95.6 fL 77.0 - 99.0 fL [facility] Monocytes (Bld) [#/Vol] 1.7 10*3/uL High 0.0 - 0.9 10*3/uL [facility] Monocytes/100 WBC (Bld) 22.4 % High 5.0 - 13.0 % [facility] Neutrophils (Bld) [#/Vol] 4.6 10*3/uL 1.8 - 7.5 10*3/uL [facility] Neutrophils/100 WBC (Bld) 62.4 % 38.0 - 82.0 % [facility] Nucleated RBC/100 WBC (Bld) [Ratio] 0 % [facility] Platelet mean volume (Bld) [Entitic vol] 13.3 fL High 9.0 - 12.7 fL [facility] Platelets (Bld) [#/Vol] 80 10*3/uL Low 140 - 440 10*3/uL [facility] RBC (Bld) [#/Vol] 2.97 10*6/uL Low 3.80 - 5.2 0 10*6/uL [facility] WBC (Bld) [#/Vol] 7.4 10*3/uL 3.6 - 10.7 10*3/uL [facility] CBC WITH AUTO DIFFERENTIALon 06-21-2024 Basophils (Bld) [#/Vol] 0.0 10*3/uL Normal 0.0-0.2 [facility] Comment on above: Performed By: #### L [id number] ####Digital Watch Assembler: VIVIAN PANTOJA ([id number])[facility] ([address] Basophils/100 WBC (Bld) 0.0 % Normal 0.0-2.0 [facility] Comment on above: Performed By: #### L [id number] ####Digital Watch Assembler: VIVIAN PANTOJA ([id number])[facility] ([facility])[address] [place] [address] Eosinophils (Bld) [#/Vol] 0.0 10*3/uL Normal 0.0-0.5 [facility] Comment on above: Performed By: #### L [id number] ####Digital Watch Assembler: VIVIAN PANTOJA ([id number])[facility] ([facility])[address] [place] [address] [place] Eosinophils/100 WBC (Bld) 0.1 % Normal 0.0-6.0 [facility] Comment on above: Performed By: #### L [id number] ####Digital Watch Assembler: VIVIAN PANTOJA ([id number])[facility] ([facility])[address] [place] [address] Erythrocyte distribution width (RBC) [Ratio] 16.4 % High 11.5-15.0 [facility] Comment on above: Performed By: #### L [id number] ####Digital Watch Assembler: VIVIAN PANTOJA ([id number])[facility] ([facility])[address] [place] [address] Hematocrit (Bld) [Volume fraction] 28.4 % Low 35.0-47.0 [facility] Comment on above: Performed By: #### L [id number] ####Digital Watch Assembler: VIVIAN PANTOJA ([id number])[facility] ([facility])[address] [place] [address] Hemoglobin (Bld) [Mass/Vol] 8.6 g/dL Low 11.7-16.0 [facility] Comment on above: Performed By: #### L [id number] ####Digital Watch Assembler: VIVIAN PANTOJA ([id number])[facility] ([facility])[address] [place] [address] IMMATURE GRANS % 0.4 % Normal 0.0-2.0 [facility] Comment on above: Performed By: #### L [id number] ####Digital Watch Assembler: VIVIAN PANTOJA ([id number])[facility] ([facility])[address] [place] [address] IMMATURE GRANS ABSOLUTE 0.0 10*3/uL Normal <0.1 [facility] Comment on above: Performed By: #### L [id number] ####Digital Watch Assembler: VIVIAN PANTOJA ([id number])[facility] ([facility])[address] [place] [address] IPF 12 Normal [facility] Comment on above: Performed By: #### L [id number] ####Digital Watch Assembler: VIVIAN PANTOJA ([id number])[facility] ([facility])[address] [place] [address] Lymphocytes (Bld) [#/Vol] 1.1 10*3/uL Normal 1.0-4.3 [facility] Comment on above: Performed By: #### L [id number] ####Digital Watch Assembler: VIVIAN PANTOJA ([id number])[facility] ([facility])[address] [place] [address] Lymphocytes/100 WBC (Bld) 14.7 % Low 15.0-45.0 [facility] Comment on above: Performed By: #### L [id number] ####Digital Watch Assembler: VIVIAN PANTOJA ([id number])[facility] ([facility])[address] [place] [address] MCH (RBC) [Entitic mass] 29.0 pg Normal 26.0-34.0 [facility] Comment on above: Performed By: #### L [id number] ####Digital Watch Assembler: VIVIAN PANTOJA ([id number])[facility] ([facility])[address] [place] [address] MCHC 30.3 % Low 30.5-36.0 [facility] Comment on above: Performed By: #### L [id number] ####Digital Watch Assembler: VIVIAN PANTOJA ([id number])[facility] ([facility])[address] MCV (RBC) [Entitic vol] 95.6 fL Normal 77.0-99.0 [facility] Comment on above: Performed By: #### L [id number] ####Digital Watch Assembler: VIVIAN PANTOJA ([id number])[facility] ([facility])[address] [place] [address] Monocytes (Bld) [#/Vol] 1.7 10*3/uL High 0.0-0.9 [facility] Comment on above: Performed By: #### L [id number] ####Digital Watch Assembler: VIVIAN PANTOJA ([id number])[facility] ([facility])[address] [place] [address] [place] Monocytes/100 WBC (Bld) 22.4 % High 5.0-13.0 [facility] Comment on above: Performed By: #### L [id number] ####Digital Watch Assembler: VIVIAN PANTOJA ([id number])[facility] ([facility])[address] [place] [address] [place] NEUTROPHILS ABSOLUTE 4.6 10*3/uL Normal 1.8-7.5 [facility] Comment on above: Performed By: #### L [id number] ####Digital Watch Assembler: VIVIAN PANTOJA ([id number])[facility] ([facility])[address] [place] [address] [place] Neutrophils/100 WBC (Bld) 62.4 % Normal 38.0-82.0 [facility] Comment on above: Performed By: #### L [id number] ####Digital Watch Assembler: VIVIAN PANTOJA ([id number])[facility] ([facility])[address] [place] [address] [place] NRBC 0.0 /100 WBCs Normal 0.0-2.0 [facility] Comment on above: Performed By: #### L [id number] ####Digital Watch Assembler: VIVIAN PANTOJA ([id number])[facility] ([facility])[address] [place] [address] Platelet mean volume (Bld) [Entitic vol] 13.3 fL High 9.0-12.7 [facility] Comment on above: Performed By: #### L [id number] ####Digital Watch Assembler: VIVIAN PANTOJA ([id number])[facility] ([facility])[address] [place] [address] Platelets (Bld) [#/Vol] 80 10*3/uL Low 140-440 [facility] Comment on above: Performed By: #### L [id number] ####Digital Watch Assembler: VIVIAN PANTOJA ([id number])[facility] ([facility])[address] [place] [address] RBC (Bld) [#/Vol] 2.97 10*6/uL Low 3.80-5.20 [facility] Comment on above: Performed By: #### L [id number] ####Digital Watch Assembler: VIVIAN PANTOJA ([id number])[facility] ([facility])[address] [place] [address] WBC (Bld) [#/Vol] 7.4 10*3/uL Normal 3.6-10.7 [facility] Comment on above: Performed By: #### L [id number] ####Digital Watch Assembler: VIVIAN PANTOJA ([id number])[facility] ([facility])[address] [place] [address] COMPREHENSIVE METABOLIC PANE Amaury 06-21-2024 Albumin [Mass/Vol] 3.8 g/dL Normal 3.4-4.8 [facility] Comment on above: Performed By: #### L AB17, LAB67, LAB68 ####Digital Watch Assembler: VIVIAN PANTOJA ([id number])[facility] ([facility])[address] [place] [address] [place] ALP [Catalytic activity/Vol] 76 U/L Normal 40-150 [facility] Comment on above: Performed By: #### Manpreet SCOTT, LAB67, LAB68 ####Digital Watch Assembler: VIVIAN PANTOJA ([id number])[facility] ([facility])[address] ALT [Catalytic activity/Vol] 19 U/L Normal <30 [facility] Comment on above: Performed By: #### Manpreet AB17, LAB67, LAB68 ####Digital Watch Assembler: VIVAIN PANTOJA ([id number])[facility] ([facility])[address] Anion gap [Moles/Vol] 8 mmol/L Normal 3-13 [facility] Comment on above: Performed By: #### Manpreet SCOTT, LAB67, LAB68 ####Digital Watch Assembler: VIVIAN PANTOJA ([id number])[facility] ([facility])[address] [place] [address] [place] AST [Catalytic activity/Vol] 15 U/L Normal <34 [facility] Comment on above: Performed By: #### Manpreet SCOTT, LAB67, LAB68 ####Digital Watch Assembler: VIVIAN PANTOJA ([id number])[facility]ENTERBessy MARTINEZRUDDY [facility] ([facility])[address] Bilirubin [Mass/Vol] 0.9 mg/dL Normal <1.2 [facility] Comment on above: Performed By: #### Manpreet SCOTT, LAB67, LAB68 ####Digital Watch Assembler: VIVIAN PANTOJA ([id number])[facility] ([facility])[address] [place] [address] [place] Calcium [Mass/Vol] 9.4 mg/dL Normal 8.8-10.0 [facility] Comment on above: Performed By: #### Manpreet SCOTT, LAB67, LAB68 ####Digital Watch Assembler: VIVIAN PANTOJA ([id number])[facility] ([facility])[address] [place] [address] [place] Chloride [Moles/Vol] 108 mmol/L High 98-107 [facility] Comment on above: Performed By: #### Manpreet MCCALL17, LAB67, LAB68 ####Digital Watch Assembler: VIVIAN PANTOJA ([id number])[facility] ([facility])[address] [place] [address] [place] CO2 [Moles/Vol] 29 mmol/L Normal 23-31 [facility] Comment on above: Performed By: #### Manpreet SCOTT, LAB67, LAB68 ####Digital Watch Assembler: VIVIAN PANTOJA ([id number])[facility] ([facility])[address] [place] [address] [place] Creatinine [Mass/Vol] 0.71 mg/dL Normal 0.57-1.11 [facility] Comment on above: Performed By: #### Manpreet SCOTT, LAB67, LAB68 ####Digital Watch Assembler: VIVIAN PANTOJA ([id number])[facility] ([facility])[address] [place] [address] [place] GLOMERULAR FILTRATION RATE ML/MIN/1.73 SQ M.PREDICTED 89.9 mL/min/1.73m*2 Normal >60.0 [facility] Comment on above: Result Comment: Calc ulation based on the Chronic Kidney Disease Epidemiology Collaboration (CKD-EPI) equation refit without adjustment for race Performed By: #### Manpreet SCOTT, LAB67, LAB68 ####Digital Watch Assembler: VIVIAN PANTOJA ([id number])[facility] ([facility])[address] [place] [address] [place] Glucose [Mass/Vol] 103 mg/dL Normal 82-115 [facility] Comment on above: Performed By: #### Manpreet SCOTT, LAB67, LAB68 ####Digital Watch Assembler: VIVIAN PANTOJA ([id number])[facility] ([facility])[address] [place] [address] [place] Potassium [Moles/Vol] 3.4 mmol/L Low 3.5-5.1 [facility] Comment on above: Result Comment: [facility] potassium values may be up to 0.5 mmol/L lower than serum values. Performed By: #### Manpreet AB17, LAB67, LAB68 ####Digital Watch Assembler: VIVIAN PANTOJA ([id number])[facility] ([facility])[address] [place] [address] Protein [Mass/Vol] 6.3 g/dL Low 6.4-8.3 [facility] Comment on above: Performed By: #### Manpreet MCCALL17, LAB67, LAB68 ####Digital Watch Assembler: VVIIAN PANTOJA ([id number])[facility]ENTER[facility] ([facility])[address] [place] [address] Sodium [Moles/Vol] 145 mmol/L Normal 136-145 [facility] Comment on above: Performed By: #### Manpreet SCOTT, LAB67, LAB68 ####Digital Watch Assembler: VIVIAN PANTOJA ([id number])[facility] ([facility])[address] [place] [address] Urea nitrogen [Mass/Vol] 17 mg/dL Normal 9-23 [facility] Comment on above: Performed By: #### Manpreet MCCALL17, LAB67, LAB68 ####Digital Watch Assembler: VIVIAN PANTOJA ([id number])[facility]ENTER[facility] ([facility])[address] [place] [address] Cobalamin (Vitamin B12) [Mas s/Vol]on 06-21-2024 Interpretation and review of laboratory results Abnormal [facility] Comprehensive metabolic 1998 panelon 06-21-2024 Albumin [Mass/Vol] 3.8 g/dL 3.4 - 4.8 g/dL [facility] ALP [Catalytic activity/Vol] 76 U/L 40 - 150 U/L [facility] ALT [Catalytic activity/Vol] 19 U/L NINF - 30 U/L [facility] Anion gap [Moles/Vol] 8 mmol/L 3 - 13 mmol/L [facility] AST [Catalytic activity/Vol] 15 U/L NINF - 34 U/L [facility] Bilirubin [Mass/Vol] 0.9 mg/dL NINF - 1.2 mg/dL [facility] Calcium [Mass/Vol] 9.4 mg/dL 8.8 - 10. 0 mg/dL [facility] Chloride [Moles/Vol] 108 mmol/L High 98 - 10 7 mmol/L [facility] CO2 [Moles/Vol] 29 mmol/L 23 - 31 mmol/L [facility] Creatinine [Mass/Vol] 0.71 mg/dL 0.57 - 1.11 mg/dL [facility] GFR/1.73 sq M.predicted (S/P/Bld) [Vol rate/Area] 89.9 mL/min - PINF [facility] Comment on above: Calculation based on the Chronic Kidney Disease Epidemiology Collaboration (CKD-EPI) equation refit without adjustment for race Glucose [Mass/Vol] 103 mg/dL 82 - 115 mg/dL [facility] Interpretation and review of laboratory results Abnormal [facility] Potassium [Moles/Vol] 3.4 mmol/L Low 3.5 - 5.1 mmol/L [facility] Comment on above: Plasma potassium imer ues may be up to 0.5 mmol/L lower than serum values. Protein [Mass/Vol] 6.3 g/dL Low 6.4 - 8.3 g/dL [facility] Sodium [Moles/Vol] 145 mmol/L 136 - 145 mmol/L [facility] Urea nitrogen [Mass/Vol] 17 mg/dL 9 - 23 mg/dL [facility] FERRITINon 06-21-2024 Ferritin [Mass/Vol] 127 ng/mL Normal - [facility] Comment on above: Result Comment: LEOBARDO Gill COMMENTS:Ferritin levels below 10 ng/mL have been reported as indicative of iron deficiency anemia. Performed By: #### L AB17, LAB67, LAB68 ####Digital Watch Assembler: VIVIAN PANTOJA ([phone])[facility] ([facility])[address] [place] [address] Ferritinon 06-21-2024 Ferritin [Mass/Vol] 127 ng/mL 5 - 204 ng/mL [facility] Ferritin [Mass/Vol]on 04-09- 2025 Interpretation and review of laboratory results Normal [facility] Ferritin levels belo w 10 ng/mL have been reported as indicative of iron deficiency anemia. [facility] IRON AND TIBCon 06-21-2024 IRON BINDING CAPACITY 289 ug/dL Normal 250-450 [facility] Comment on above: Performed By: #### L [id number] ####Digital Watch Assembler: VIVIAN PANTOJA ([id number])[facility] ([facility])[address] [place] [address] IRON SATURATION 15.6 % Low 20.0-50.0 [facility] Comment on above: Performed By: #### L [id number] ####Digital Watch Assembler: VIVIAN PANTOJA ([phone])[facility] ([facility])[address] [place] [address] IRON, TOTAL 45 ug/dL Low 50-170 [facility] Comment on above: Performed By: #### L [id number] ####Digital Watch Assembler: VIVIAN PANTOJA ([phone])[facility] ([facility])[address] [place] [address] Iron and Iron binding capaci ty panelon 06-21-2024 Interpretation and review of laboratory results Abnormal [facility] Iron [Mass/Vol] 45 ug/dL Low 50 - 170 ug/dL [facility] Iron binding capacity [Mass/Vol] 289 ug/dL 250 - 450 ug/dL [facility] Iron saturation [Mass fraction] 15.6 % Low 20.0 - 50.0 % [facility] No Panel Informationon 06-21 [facility] SERUM ELECTROPHORESISon Albumin [Mass/Vol] 4.1 g/dL Normal 3.1-4.8 [facility] Comment on above: Order Comment: THIS IS A CARVE-OUT LAB: SPECIMEN MUST BE SENT TO [facility] FOR PROCESSING Performed By: #### L [id number] ####Digital Watch Assembler: VIVIAN PANTOJA ([id number])[facility] ([address] ALPHA 1 0.5 g/dL High 0.2-0.4 [facility] Comment on above: Order Comment: THIS IS A CARVE-OUT LAB: SPECIMEN MUST BE SENT TO [facility] FOR PROCESSING Performed By: #### L [id number] ####Digital Watch Assembler: VIVIAN PANTOJA ([id number])[facility])[address] [place] [address] ALPHA 2 0.6 g/dL Normal 0.6-1.0 [facility] Comment on above: Order Comment: THIS IS A CARVE-OUT LAB: SPECIMEN MUST BE SENT TO [facility] FOR PROCESSING Performed By: #### L [id number] ####Digital Watch Assembler: VIVIAN PANTOJA ([id number])[facility])[address] [place] [address] BETA 1 0.4 g/dl Normal 0.3-0.6 [facility] Comment on above: Order Comment: THIS IS A CARVE-OUT LAB: SPECIMEN MUST BE SENT TO [facility] FOR PROCESSING Performed By: #### L [id number] ####Digital Watch Assembler: VIVIAN PANTOJA ([id number])[facility])[address] [place] [address] BETA 2 0.3 g/dl Normal 0.3-0.5 [facility] Comment on above: Order Comment: THIS IS A CARVE-OUT LAB: SPECIMEN MUST BE SENT TO [facility] FOR PROCESSING Performed By: #### L [id number] ####Digital Watch Assembler: VIVIAN PANTOJA ([id number])[facility])[address] [place] [address] GAMMA GLOBULIN 0.5 g/dL Normal 0.4-1.4 [facility] Comment on above: Order Comment: THIS IS A CARVE-OUT LAB: SPECIMEN MUST BE SENT TO [facility] FOR PROCESSING Performed By: #### L [id number] ####Digital Watch Assembler: VIVIAN PANTOJA ([phone])[facility])[address] [place] [address] PROTEIN FRACTION (INTERPRETATION) IN SER/PLAS BY ELECTROPHORESIS See Below Normal [facility] Comment on above: Order Comment: THIS IS A CARVE-OUT LAB: SPECIMEN MUST BE SENT TO [facility] FOR PROCESSING Result Comment: Neil t band present in the gamma region.The band has a concentration of 0.16 g/dL. An Immunofixation is recommended. Performed By: #### L [id number] ####Digital Watch Assembler: VIVIAN PANTOJA ([id number])[facility] ([facility])[address] [place] [address] RELEASED BY Vivian Pantoja M.D. [facility] Comment on above: Order Comment: THIS IS A CARVE-OUT LAB: SPECIMEN MUST BE SENT TO [facility] FOR PROCESSING Result Comment: This is an appended report. These results have been appended to a previously preliminary verified report. Performed By: #### L [id number] ####Digital Watch Assembler: VIVIAN PANTOJA ([phone])[facility] ([facility])[address] [place] [address] REVIEWED BY Noe Oropeza, Ph.D. [facility] Comment on above: Order Comment: THIS IS A CARVE-OUT LAB: SPECIMEN MUST BE SENT TO [facility] FOR PROCESSING Performed By: #### L [id number] ####Digital Watch Assembler: VIVIAN PANTOJA ([id number])[facility] ([facility])[address] [place] [address] VITAMIN B12on 06-21-2024 Cobalamin (Vitamin B12) [Mass/Vol] 1023 pg/mL High 213-816 [facility] Comment on above: Performed By: #### L AB17, LAB67, LAB68 ####Digital Watch Assembler: VIVIAN PANTOJA ([id number])[facility] ([facility])[address] [place] [address] Vitamin B12on 06-21-2024 Cobalamin (Vitamin B12) [Mass/Vol] 1023 pg/mL High 213 - 816 pg/mL [facility] 29on 06-19-2024 29 Addended by: NESTOR MENDOZA on: 06/21/2024 11:16 AM Modules accepted: Orders Normal [facility] Progress Noteon 06-19-2024 Progress Note Normal [facility] 36on 06-12-2024 36 Noted Normal [facility] 36on 06-09-2024 36 Normal [facility] Culture, Blood (WB)on 2024 CUB Blood cultures x2, f rom two different sites No growth in 5 days. Normal [facility] Comment on above: Performed By: #### L 500.2500, L100.0100, L501.5425, L503.6620 #### [facility] Laboratory [address] [place], [address] Absolute lymphocyte countOrd ered By: Raulevelyn Helton on 06-05-2024 Lymphocytes Auto (Unsp spec) [#/Vol] 0.59 10*3/uL Low 0.83-4.51 [facility] Absolute neutrophil countOrd ered By: Raulevelyn Helton on 06-05-2024 Neutrophils (Bld) [#/Vol] 10.7 10*3/uL High 2.0-7.7 [facility] Anion gap in Serum or Plasma Ordered By: Raul Helton on 06-05-2024 Anion gap [Moles/Vol] 11 mmol/L 5-15 [facility] Automated lymphocyte count a s percentage of total leukocytesOrdered By: Raul Helton on 06-05-2024 Lymphocytes/100 WBC Auto (Unsp spec) 4.6 % Low 19-41 [facility] BUN/creatinine ratioOrdered By: Raul Helton on 06-05-2024 Urea nitrogen/Creatinine [Mass ratio] 43.8 mg/mg High 10-20 [facility] Basic Metabolic Profile (BMP )on 06-05-2024 BUN/CRE 43.8 RATIO High 10-20 [facility] Comment on above: Performed By: #### L 500.4050 #### [facility] [address] [place], [address] Calcium [Mass/Vol] 9.7 mg/dL Normal 7.6-11.0 [facility] Comment on above: Performed By: #### L [id number] #### [facility] [address] [place], [address] Chloride [Moles/Vol] 101 mmol/L Normal 98-108 [facility] Comment on above: Performed By: #### L [id number] #### [facility] [address] [place], [address] CO2 [Moles/Vol] 29.0 mmol/L Normal 21.0-32.0 [facility] Comment on above: Performed By: #### L [id number] #### [facility] [address] [place], [address] Creatinine [Mass/Vol] 0.84 mg/dL Normal 0.70-1.20 [facility] Comment on above: Performed By: #### L 500.4050 #### [facility] [address] [place], [address] ECRCL 62.66 ml/min Normal 50-250 [facility] Comment on above: Performed By: #### L [id number] #### [facility] [address] [place], [address] GAP 11 Normal 5-15 [facility] Comment on above: Performed By: #### L 500.4050 #### [facility] [address] [place], [address] GFR/1.73 sq M.predicted among non-blacks MDRD (S/P/Bld) [Vol rate/Area] 74 mL/min/{1.73_m2} Normal >60 [facility] Comment on above: Result Comment: mL/m in/1.73m2 CKD-EPI Creatinine Equation (2020) Performed By: #### L 500.4050 #### [facility] [address] [place], [address] Glucose [Mass/Vol] 161 mg/dL High 70-99 [facility] Comment on above: Performed By: #### L 500.4050 #### [facility] [address] [place], [address] Potassium [Moles/Vol] 3.9 mmol/L Normal 3.3-5.1 [facility] Comment on above: Performed By: #### L [id number] #### [facility] [address] [place], [address] Sodium [Moles/Vol] 141 mmol/L Normal 133-145 [facility] Comment on above: Performed By: #### L [id number] #### [facility] [address] [place], [address] Urea nitrogen [Mass/Vol] 37 mg/dL High 4- [facility] Comment on above: Performed By: #### L 500.4050 #### [facility] [address] [place], [address] Basophil percentageOrdered B y: Raul Helton on 06-05-2024 Basophils/100 WBC (Bld) 0.2 % 0-1 [facility] CBC W/Diff, Automatedon - Absolute Lymph 0.59 X10 3/uL Low 0.83-4.51 [facility] Comment on above: Performed By: #### L 500.4050 #### [facility] [address] [place], [address] Absolute Neut 10.7 X10 3/uL High 2.0-7.7 [facility] Comment on above: Performed By: #### L [id number] #### [facility] [address] [place], [address] Basophils/100 WBC (Bld) 0.2 % Normal 0-1 [facility] Comment on above: Performed By: #### L 500.4050 #### [facility] [address] [place], [address] Eosinophils/100 WBC (Bld) 0.0 % Normal 0-5 [facility] Comment on above: Performed By: #### L 500.4050 #### [facility] [address] [place], [address] Erythrocyte distribution width (RBC) [Ratio] 17.2 % High 11.6-14.6 [facility] Comment on above: Performed By: #### L 500.4050 #### [facility] [address] [place], [address] Hematocrit (Bld) [Volume fraction] 29.4 % Low 37-47 [facility] Comment on above: Performed By: #### L 500.4050 #### [facility] [address] [place], [address] Hemoglobin (Bld) [Mass/Vol] 8.7 g/dL Low 12.0-15.0 [facility] Comment on above: Performed By: #### L 500.4050 #### [facility] [address] [place], [address] IG% 1.900 High 0.0-0.9 [facility] Comment on above: Result Comment: IG% - Immature Granulocytes (promyelocytes, myelocytes and metamyelocytes) > 1% indicates that a LEFT SHIFT is Present. Performed By: #### L 500.4050 #### [facility] [address] [place], [address] Lymphocytes/100 WBC (Bld) 4.6 % Low 19-41 [facility] Comment on above: Performed By: #### L [id number] #### [facility] [address] [place], [address] MCH (RBC) [Entitic mass] 29.2 pg Normal 27.0-32.0 [facility] Comment on above: Performed By: #### L 500.4050 #### [facility] [address] [place], [address] MCHC (RBC) [Mass/Vol] 29.6 g/dL Low 32-36 [facility] Comment on above: Performed By: #### L 500.4050 #### [facility] [address] [place], [address] MCV (RBC) [Entitic vol] 98.7 fL Normal 81-99 [facility] Comment on above: Performed By: #### L [id number] #### [facility] [address] [place], [address] Monocytes/100 WBC (Bld) 9.0 % Normal 0-10 [facility] Comment on above: Performed By: #### L 500.4050 #### [facility] [address] [place], [address] Neutrophils/100 WBC (Bld) 84.3 % High 47-70 [facility] Comment on above: Performed By: #### L 500.4050 #### [facility] [address] [place], [address] Nucleated RBC (Bld) [#/Vol] 0.2 10*3/uL Normal 0-5 [facility] Comment on above: Performed By: #### L 500.4050 #### [facility] [address] [place], [address] Platelet mean volume (Bld) [Entitic vol] 14.3 fL High 6.2-12.0 [facility] Comment on above: Performed By: #### L 500.4050 #### [facility] [address] [place], [address] Platelets (Bld) [#/Vol] 90 10*3/uL Low 150-450 [facility] Comment on above: Performed By: #### L 500.4050 #### [facility] [address] [place], [address] RBC (Bld) [#/Vol] 2.98 10*6/uL Low 4.2-5.4 [facility] Comment on above: Performed By: #### L 500.4050 #### [facility] [address] [place], [address] RDW SD 62.4 fl High 35.1-43.9 [facility] Comment on above: Performed By: #### L 500.4050 #### [facility] [address] [place], [address] WBC (Bld) [#/Vol] 12.7 10*3/uL High 4.4-11.0 [facility] Comment on above: Performed By: #### L 500.4050 #### [facility] [address] [place], [address] Carbon dioxide, total [Moles /volume] in Central venous bloodOrdered By: Raul Helton on 06-05-2024 CO2 [Moles/Vol] 29.0 mmol/L 21.0-32.0 [facility] Chloride assayOrdered By: Shy Helotn on 06-05-2024 Chloride [Moles/Vol] 101 mmol/L 98-108 [facility] Electrocardiogram reportOrde red By: Jermaine Hagen on 06-05-2024 EKG study [facility] Cardiovascular Services [address] [facility] [place] [address] 12 Lead EKG 06/02/24 1054 MR#: [id number] Acct: [id number] Name: ALTA BAKER Rep #:[id number] : 1950 74 From: Jermaine Hagen MD Attending Dr: Dr. Raul Helton MD Status: ADM IN Ordering Dr: Alyce Morel DO Date: Location: [facility] Sex: F C Admitted: 06/02/24 Test Reason [...] ECG Confirmed by XIAO POLANCO, JERMAINE ([id number]), acquisition editor KRISSY MORALES ([id number]) on 56:46:43 AM Referred By: Wilbert Umanzor Confirmed By: JERMAINE HAGEN MD 06/05/24 0646 Date _ Jermaine Hagen MD CC: Dr. Wilbert Umanzor, DO; Dr. Kory Ibarra DO; Dr. Raul Helton MD; Dr. Alyce Morel DO ~ Signed [facility] Work Phone: [phone] Eosinophil percentageOrdered By: Raul Helton on 06-05-2024 Eosinophils/100 WBC (Bld) 0.0 % 0-5 [facility] Erythrocyte distribution wid th ratioOrdered By: Raul Helton on 06-05-2024 Erythrocyte distribution width (RBC) [Ratio] 17.2 % High 11.6-14.6 [facility] Erythrocyte distribution wid th standard deviationOrdered By: Raul Helton on 06-05-2024 Erythrocyte distribution width (RBC) [Entitic vol] 62.4 fL High 35.1-43.9 [facility] Erythrocyte distribution width (RBC) [Ratio] 62.4 fl High 35.1-43.9 [facility] Estimation of creatinine shelly aranceOrdered By: Raul Helton on 06-05-2024 Estimated Creatinine Clearance Calc 62.66 ml/min 50-250 [facility] GFR/1.73 sq M.predicted [place] g non-blacks MDRD (S/P/Bld) [Vol rate/Area]Ordered By: Raul Helton on 06-05-2024 Estimated GFR (MDRD) Non-Af Amer 74 >60 [facility] Comment on above: mL/min/1.73m2 CKD-EP I Creatinine Equation (2020) Glomerular filtration rate ( GFR) estimation/1.73 sq m using serum, plasma, or whole bOrdered By: Raul Helton on 06-05-2024 GFR/1.73 sq M.predicted among non-blacks MDRD (S/P/Bld) [Vol rate/Area] 74 mL/min/{1.73_m2} >60 [facility] Comment on above: mL/min/1.73m2 CKD-EP I Creatinine Equation (2020) Hematocrit Auto (Bld) [Volum e fraction]Ordered By: Raul Helton on 06-05-2024 Hematocrit (Bld) [Volume fraction] 29.4 % Low 37-47 [facility] Hemoglobin measurementOrdere d By: Raul Helton on 06-05-2024 Hemoglobin (Bld) [Mass/Vol] 8.7 g/dL Low 12.0-15.0 [facility] Immature granulocytes/100 WB C Auto (Bld)Ordered By: Raul Helton on 06-05-2024 Immature granulocytes/100 WBC (Bld) 1.900 % High 0.0-0.9 [facility] Comment on above: IG% - Immature Granu locytes (promyelocytes, myelocytes and metamyelocytes) > 1% indicates that a LEFT SHIFT is Present. Lymphocytes Auto (Unsp spec) [#/Vol]Ordered By: Raul Helton on 06-05-2024 Lymphocytes (Bld) [#/Vol] 0.59 10*3/uL Low 0.83-4.51 [facility] Lymphocytes/100 WBC Auto (Un sp spec)Ordered By: Raul Helton on 06-05-2024 Lymphocytes/100 WBC (Bld) 4.6 % Low 19-41 [facility] MCV (mean corpuscular volume ) determinationOrdered By: Raul Helton on 06-05-2024 MCV (RBC) [Entitic vol] 98.7 fL 81-99 [facility] Mean corpuscular hemoglobin (MCH) determinationOrdered By: Raul Helton on 06-05-2024 MCH (RBC) [Entitic mass] 29.2 pg 27.0-32.0 [facility] Mean corpuscular hemoglobin concentration (MCHC) determinationOrdered By: Raul Helton on 06-05-2024 MCHC (RBC) [Mass/Vol] 29.6 g/dL Low 32-36 [facility] Mean platelet volume determi nationOrdered By: Raul Helton on 06-05-2024 Platelet mean volume (Bld) [Entitic vol] 14.3 fL High 6.2-12.0 [facility] Monocyte percentageOrdered B y: Raul Helton on 06-05-2024 Monocytes/100 WBC (Bld) 9.0 % 0-10 [facility] Neutrophil percentageOrdered By: Raul Helton on 06-05-2024 Neutrophils/100 WBC (Bld) 84.3 % High 47-70 [facility] Nucleated red blood cell per centageOrdered By: Raul Helton on 06-05-2024 Nucleated RBC/100 WBC (Bld) [Ratio] 0.2 % 0-5 [facility] Platelet countOrdered By: Shy Helton on 06-05-2024 Platelets (Bld) [#/Vol] 90 10*3/uL Low 150-450 [facility] Potassium (Unsp spec) [Mass/ Vol]Ordered By: Raul Helton on 06-05-2024 Potassium [Moles/Vol] 3.9 mmol/L 3.3-5.1 [facility] Potassium measurement (mass/ volume)Ordered By: Raul Helton on 06-05-2024 Potassium (Unsp spec) [Mass/Vol] 3.9 mmol/L 3.3-5.1 [facility] RBC Auto (Bld) [#/Vol]Ordere d By: Raul Helton on 06-05-2024 RBC (Bld) [#/Vol] 2.98 10*6/uL Low 4.2-5.4 [facility] Serum creatinine measurement (mass/volume)Ordered By: Raul Helton on 06-05-2024 Creatinine [Mass/Vol] 0.84 mg/dL 0.70-1.20 [facility] Serum glucose measurement (m ass/volume)Ordered By: Raul Helton on 06-05-2024 Glucose [Mass/Vol] 161 mg/dL High 70-99 [facility] Serum or plasma calcium betzaida urement (mass/volume)Ordered By: Raul Helton on 06-05-2024 Calcium [Mass/Vol] 9.7 mg/dL 7.6-11.0 [facility] Serum or plasma urea nitroge n measurement (mass/volume)Ordered By: Raul Helton on 06-05-2024 Urea nitrogen [Mass/Vol] 37 mg/dL High 4-19 [facility] Sodium levelOrdered By: Mani Helton on 06-05-2024 Sodium [Moles/Vol] 141 mmol/L 133-145 [facility] White blood cell (WBC) count Ordered By: Raul Helton on 06-05-2024 WBC (Bld) [#/Vol] 12.7 10*3/uL High 4.4-11.0 [facility] Basic Metabolic Profile (BMP )on 06-04-2024 BUN/CRE 39.9 RATIO High 10-20 [facility] Comment on above: Performed By: #### L 500.4050 #### [facility] [address] [place], [address] Calcium [Mass/Vol] 9.6 mg/dL Normal 7.6-11.0 [facility] Comment on above: Performed By: #### L 500.4050 #### [facility] [address] [place], [address] Chloride [Moles/Vol] 101 mmol/L Normal 98-108 [facility] Comment on above: Performed By: #### L 500.4050 #### [facility] [address] [place], [address] CO2 [Moles/Vol] 26.4 mmol/L Normal 21.0-32.0 [facility] Comment on above: Performed By: #### L 500.4050 #### [facility] [address] [place], [address] Creatinine [Mass/Vol] 0.94 mg/dL Normal 0.70-1.20 [facility] Comment on above: Performed By: #### L [id number] #### [facility] [address] [place], [address] ECRCL 55.99 ml/min Normal 50-250 [facility] Comment on above: Performed By: #### L [id number] #### [facility] [address] [place], [address] GAP 13 Normal 5-15 [facility] Comment on above: Performed By: #### L 500.4050 #### [facility] [address] [place], [address] GFR/1.73 sq M.predicted among non-blacks MDRD (S/P/Bld) [Vol rate/Area] 64 mL/min/{1.73_m2} Normal >60 [facility] Comment on above: Result Comment: mL/m in/1.73m2 CKD-EPI Creatinine Equation (2020) Performed By: #### L 500.4050 #### [facility] [address] [place], [address] Glucose [Mass/Vol] 153 mg/dL High 70-99 [facility] Comment on above: Performed By: #### L 500.4050 #### [facility] [address] [place], [address] Potassium [Moles/Vol] 4.1 mmol/L Normal 3.3-5.1 [facility] Comment on above: Performed By: #### L 500.4050 #### [facility] [address] [place], [address] Sodium [Moles/Vol] 140 mmol/L Normal 133-145 [facility] Comment on above: Performed By: #### L 500.4050 #### [facility] [address] [place], [address] Urea nitrogen [Mass/Vol] 37 mg/dL High 4-19 [facility] Comment on above: Performed By: #### L [id number] #### [facility] [address] [place], [address] CBC W/Diff, Automatedon 03-2 -2024 Absolute Lymph 0.77 X10 3/uL Low 0.83-4.51 [facility] Comment on above: Performed By: #### L 500.4050 #### [facility] [address] [place], [address] Absolute Neut 12.3 X10 3/uL High 2.0-7.7 [facility] Comment on above: Performed By: #### L 500.4050 #### [facility] [address] [place], [address] Basophils/100 WBC (Bld) 0.1 % Normal 0-1 [facility] Comment on above: Performed By: #### L 500.4050 #### [facility] [address] [place], [address] Eosinophils/100 WBC (Bld) 0.0 % Normal 0-5 [facility] Comment on above: Performed By: #### L 500.4050 #### [facility] [address] [place], [address] Erythrocyte distribution width (RBC) [Ratio] 17.8 % High 11.6-14.6 [facility] Comment on above: Performed By: #### L 500.4050 #### [facility] [address] [place], [address] Hematocrit (Bld) [Volume fraction] 29.1 % Low 37-47 [facility] Comment on above: Performed By: #### L 500.4050 #### [facility] [address] [place], [address] Hemoglobin (Bld) [Mass/Vol] 8.7 g/dL Low 12.0-15.0 [facility] Comment on above: Performed By: #### L 500.4050 #### [facility] [address] [place], [address] IG% 2.200 High 0.0-0.9 [facility] Comment on above: Result Comment: IG% - Immature Granulocytes (promyelocytes, myelocytes and metamyelocytes) > 1% indicates that a LEFT SHIFT is Present. Performed By: #### L 500.4050 #### [facility] [address] [place], [address] Lymphocytes/100 WBC (Bld) 5.3 % Low 19-41 [facility] Comment on above: Performed By: #### L [id number] #### [facility] [address] [place], [address] MCH (RBC) [Entitic mass] 29.7 pg Normal 27.0-32.0 [facility] Comment on above: Performed By: #### L 500.4050 #### [facility] [address] [place], [address] MCHC (RBC) [Mass/Vol] 29.9 g/dL Low 32-36 [facility] Comment on above: Performed By: #### L 500.4050 #### [facility] [address] [place], [address] MCV (RBC) [Entitic vol] 99.3 fL High 81-99 [facility] Comment on above: Performed By: #### L 500.4050 #### [facility] [address] [place], [address] Monocytes/100 WBC (Bld) 8.4 % Normal 0-10 [facility] Comment on above: Performed By: #### L 500.4050 #### [facility] [address] [place], [address] Neutrophils/100 WBC (Bld) 84.0 % High 47-70 [facility] Comment on above: Performed By: #### L 500.4050 #### [facility] [address] [place], [address] Nucleated RBC (Bld) [#/Vol] 0.3 10*3/uL Normal 0-5 [facility] Comment on above: Performed By: #### L 500.4050 #### [facility] [address] [place], [address] Platelet mean volume (Bld) [Entitic vol] 13.3 fL High 6.2-12.0 [facility] Comment on above: Performed By: #### L 500.4050 #### [facility] [address] [place], [address] Platelets (Bld) [#/Vol] 90 10*3/uL Low 150-450 [facility] Comment on above: Performed By: #### L 500.4050 #### [facility] [address] [place], [address] RBC (Bld) [#/Vol] 2.93 10*6/uL Low 4.2-5.4 [facility] Comment on above: Performed By: #### L 500.4050 #### [facility] [address] [place], [address] RDW SD 63.7 fl High 35.1-43.9 [facility] Comment on above: Performed By: #### L 500.4050 #### [facility] [address] [place], [address] WBC (Bld) [#/Vol] 14.6 10*3/uL High 4.4-11.0 [facility] Comment on above: Performed By: #### L 500.4050 #### [facility] [address] [place], [address] Basic Metabolic Profile (BMP )on 06-03-2024 BUN/CRE 29.5 RATIO High 10-20 [facility] Comment on above: Performed By: #### L 100.0100, L500.4050 #### [facility] [address] [place], [address] Calcium [Mass/Vol] 9.6 mg/dL Normal 7.6-11.0 [facility] Comment on above: Performed By: #### L 100.0100, L500.4050 #### [facility] [address] [place], [address] Chloride [Moles/Vol] 103 mmol/L Normal 98-108 [facility] Comment on above: Performed By: #### L 100.0100, L500.4050 #### [facility] [address] [place], [address] CO2 [Moles/Vol] 24.5 mmol/L Normal 21.0-32.0 [facility] Comment on above: Performed By: #### L 100.0100, L500.4050 #### [facility] [address] [place], [address] Creatinine [Mass/Vol] 1.09 mg/dL Normal 0.70-1.20 [facility] Comment on above: Performed By: #### L 100.0100, L500.4050 #### [facility] [address] [place], [address] ECRCL 48.29 ml/min Low 50-250 [facility] Comment on above: Performed By: #### L 100.0100, L500.4050 #### [facility] [address] [place], [address] GAP 15 Normal 5-15 [facility] Comment on above: Performed By: #### L 100.0100, L500.4050 #### [facility] [address] [place], [address] GFR/1.73 sq M.predicted among non-blacks MDRD (S/P/Bld) [Vol rate/Area] 54 mL/min/{1.73_m2} Low >60 [facility] Comment on above: Result Comment: mL/m in/1.73m2 CKD-EPI Creatinine Equation (2020) Performed By: #### L 100.0100, L500.4050 #### [facility] [address] [place], [address] Glucose [Mass/Vol] 157 mg/dL High 70-99 [facility] Comment on above: Performed By: #### L 100.0100, L500.4050 #### [facility] [address] [place], [address] Potassium [Moles/Vol] 4.2 mmol/L Normal 3.3-5.1 [facility] Comment on above: Performed By: #### L 100.0100, L500.4050 #### [facility] [address] [place], [address] Sodium [Moles/Vol] 142 mmol/L Normal 133-145 [facility] Comment on above: Performed By: #### L 100.0100, L500.4050 #### [facility] [address] [place], [address] Urea nitrogen [Mass/Vol] 32 mg/dL High 4-19 [facility] Comment on above: Performed By: #### L 100.0100, L500.4050 #### [facility] [address] [place], [address] CBC-Complete Blood Cnt No Di ffon 06-03-2024 Hemoglobin (Bld) [Mass/Vol] 8.8 g/dL Low 12.0-15.0 [facility] Comment on above: Order Comment: TERRI Acevedo PREVIOUS SPECIMEN REJECTED DUE TO HEMOLYSIS. 12/02/23 0712 Curt Thacker. Result Comment: SILVINA NEGRON WITH NURSE Performed By: #### L 500.4050 #### [facility] [address] [place], [address] Erythrocyte distribution width (RBC) [Ratio] 18.1 % High 11.6-14.6 [facility] Comment on above: Order Comment: REDRA W. PREVIOUS SPECIMEN REJECTED DUE TO HEMOLYSIS. 12/02/23711 Curt Thacker. Performed By: #### L 500.4050 #### [facility] [address] [place], [address] Hematocrit (Bld) [Volume fraction] 29.9 % Low 37-47 [facility] Comment on above: Order Comment: REDRA W. PREVIOUS SPECIMEN REJECTED DUE TO HEMOLYSIS. 12/02/23711 Curt Thacker. Performed By: #### L 500.4050 #### [facility] [address] [place], [address] MCH (RBC) [Entitic mass] 29.1 pg Normal 27.0-32.0 [facility] Comment on above: Order Comment: REDRA W. PREVIOUS SPECIMEN REJECTED DUE TO HEMOLYSIS. 12/02/23711 Curt Thacker. Performed By: #### L 500.4050 #### [facility] [address] [place], [address] MCHC (RBC) [Mass/Vol] 29.4 g/dL Low 32-36 [facility] Comment on above: Order Comment: REDRA W. PREVIOUS SPECIMEN REJECTED DUE TO HEMOLYSIS. 12/02/23711 Curt Thacker. Performed By: #### L 500.4050 #### [facility] [address] [place], [address] MCV (RBC) [Entitic vol] 99.0 fL Normal 81-99 [facility] Comment on above: Order Comment: REDRA W. PREVIOUS SPECIMEN REJECTED DUE TO HEMOLYSIS. 12/02/23711 Curt Thacker. Performed By: #### L 500.4050 #### [facility] [address] [place], [address] Platelet mean volume (Bld) [Entitic vol] 13.9 fL High 6.2-12.0 [facility] Comment on above: Order Comment: REDRA W. PREVIOUS SPECIMEN REJECTED DUE TO HEMOLYSIS. 12/02/23711 Curt Thacker. Performed By: #### L 500.4050 #### [facility] [address] [place], [address] Platelets (Bld) [#/Vol] 92 10*3/uL Low 150-450 [facility] Comment on above: Order Comment: REDRA W. PREVIOUS SPECIMEN REJECTED DUE TO HEMOLYSIS. 12/02/23711 Curt Thacker. Performed By: #### L 500.4050 #### [facility] [address] [place], [address] RBC (Bld) [#/Vol] 3.02 10*6/uL Low 4.2-5.4 [facility] Comment on above: Order Comment: REDRA W. PREVIOUS SPECIMEN REJECTED DUE TO HEMOLYSIS. 12/02/23711 Curt Thacker. Performed By: #### L 500.4050 #### [facility] [address] [place], [address] RDW SD 64.7 fl High 35.1-43.9 [facility] Comment on above: Order Comment: REDRA W. PREVIOUS SPECIMEN REJECTED DUE TO HEMOLYSIS. 12/02/23711 Curt Thacker. Performed By: #### L 500.4050 #### [facility] [address] [place], [address] WBC (Bld) [#/Vol] 12.3 10*3/uL High 4.4-11.0 [facility] Comment on above: Order Comment: REDRA W. PREVIOUS SPECIMEN REJECTED DUE TO HEMOLYSIS. 12/02/23711 Curt Thacker. Performed By: #### L 500.4050 #### [facility] [address] [place], [address] HCT Normal 37-47 [facility] Comment on above: Result Comment: This specimen has been REJECTED due to Laboratory criteria: POSSIBLE ERRONEOUS RESULTS. DMILLER has been notified of need of recollection. 06/03/24 0542 Serjio R Maldonado Performed By: #### L 100.0100, L500.4050 #### [facility] [address] [place], [address] HGB Normal 12.0-15.0 [facility] Comment on above: Result Comment: This specimen has been REJECTED due to Laboratory criteria: POSSIBLE ERRONEOUS RESULTS. DMILLER has been notified of need of recollection. 06/03/24 0542 Serjio R Maldonado Performed By: #### L 100.0100, L500.4050 #### [facility] [address] [place], [address] MCH Normal 27.0-32.0 [facility] Comment on above: Result Comment: This specimen has been REJECTED due to Laboratory criteria: POSSIBLE ERRONEOUS RESULTS. DMILLER has been notified of need of recollection. 06/03/24541 Serjio R Maldonado Performed By: #### L 100.0100, L500.4050 #### [facility] [address] [place], [address] MCHC Normal 32-36 [facility] Comment on above: Result Comment: This specimen has been REJECTED due to Laboratory criteria: POSSIBLE ERRONEOUS RESULTS. DMILLER has been notified of need of recollection. 06/03/2442 Serjio R Maldonado Performed By: #### L 100.0100, L500.4050 #### [facility] [address] [place], [address] MCV Normal 81-99 [facility] Comment on above: Result Comment: This specimen has been REJECTED due to Laboratory criteria: POSSIBLE ERRONEOUS RESULTS. DMILLER has been notified of need of recollection. 06/03/2442 Serjio R Maldonado Performed By: #### L 100.0100, L500.4050 #### [facility] [address] [place], [address] PLT Normal 150-450 [facility] Comment on above: Result Comment: This specimen has been REJECTED due to Laboratory criteria: POSSIBLE ERRONEOUS RESULTS. DMILLER has been notified of need of recollection. 06/03/24 0542 Serjio R Maldonado Performed By: #### L 100.0100, L500.4050 #### [facility] [address] [place], [address] RBC Normal 4.2-5.4 [facility] Comment on above: Result Comment: This specimen has been REJECTED due to Laboratory criteria: POSSIBLE ERRONEOUS RESULTS. DMILLER has been notified of need of recollection. 06/03/24 0542 Serjio R Maldonado Performed By: #### L 100.0100, L500.4050 #### [facility] [address] [place], [address] RDW CV Normal 11.6-14.6 [facility] Comment on above: Result Comment: This specimen has been REJECTED due to Laboratory criteria: POSSIBLE ERRONEOUS RESULTS. DMILLER has been notified of need of recollection. 06/03/24 0542 Serjio R Maldonado Performed By: #### L 100.0100, L500.4050 #### [facility] [address] [place], [address] RDW SD Normal 35.1-43.9 [facility] Comment on above: Result Comment: This specimen has been REJECTED due to Laboratory criteria: POSSIBLE ERRONEOUS RESULTS. DMILLER has been notified of need of recollection. 06/03/24 0542 Serjio R Maldonado Performed By: #### L 100.0100, L500.4050 #### [facility] [address] [place], [address] WBC Normal 4.4-11.0 [facility] Comment on above: Result Comment: This specimen has been REJECTED due to Laboratory criteria: POSSIBLE ERRONEOUS RESULTS. DMILLER has been notified of need of recollection. 06/03/24 0542 Serjio R Maldonado Performed By: #### L 100.0100, L500.4050 #### [facility] [address] [place], [address] Echocardiogram study reportO rdered By: Jermaine Hagen on 06-03-2024 Study report [facility] Cardi[facility] Services [address] [place] [address] Echo Complete 06/03/24 1026 MR#: [id number] Acct: [id number] Name: ALTA BAKER Rep #:[id number] : 1950 74 From: Jermaine Sotomayor Attending Dr: Dr. Raul Helton MD Status: ADM IN Ordering Dr: Wilbert Umanzor te: 06/02/24 Location: [facility] Sex: F C Admitted: 06/02/24 Reason For [...] Dictated: 06/03/24 1026 Date Transcribed: 06/03/24 1222 [place] Worker: Signed [facility] Work Phone: 12 Lead EKGon 06-02-2024 12 Lead EKG [facility] Cardiovascular Services [address] [place] [address] 12 Lead EKG 06/02/24 1054 MR#: [id number] Acct: [id number] Name: ALTA BAKER Rep #: [id number] : 1950 74 From: Jermaine Hagen MD Attending Dr: Dr. Raul Helton MD Status: ADM IN Ordering Dr: Alyce Morel DO Date: 06/02/24 Location: [facility] Sex: F C Admitted: 06/02/24 Test Reason [...] , age undetermined Abnormal ECG Confirmed by JERMAINE HAGEN MD ([id number]), acquisition editor KRISSY MORALES ([id number]) on 06/05/2024 6:46:43 AM Referred By: Wilbert Umanzor Confirmed By: JERMAINE HAGEN MD 06/05/24 0646 Date Jermaine Hagen MD CC: Dr. Wilbert Umanzor DO; Dr. Kory Ibarra DO; Dr. Raul Helton MD; Dr. Alyce Morel DO Signed Normal [facility] Absolute neutrophil countOrd ered By: Alyce Morel on 06-02-2024 Neutrophils (Bld) [#/Vol] 5.5 10*3/uL 2.0-7.7 [facility] Anion gap in Serum or Plasma Ordered By: Alyce Morel on 06-02-2024 Anion gap [Moles/Vol] 13 mmol/L 07-27 [facility] BUN/creatinine ratioOrdered By: Alyce Morel on 06-02-2024 Urea nitrogen/Creatinine [Mass ratio] 19.7 mg/mg - [facility] Basic Metabolic Profile (BMP )on 06-02-2024 BUN/CRE 19.7 RATIO Normal 01-01 [facility] Comment on above: Performed By: #### L 100.0100, L500.4050 #### [facility] [address] [place], [address] Calcium [Mass/Vol] 8.8 mg/dL Normal 7.6-11.0 [facility] Comment on above: Performed By: #### L 100.0100, L500.4050 #### [facility] [address] [place], [address] Chloride [Moles/Vol] 107 mmol/L Normal 98-108 [facility] Comment on above: Performed By: #### L 100.0100, L500.4050 #### [facility] [address] [place], [address] CO2 [Moles/Vol] 20.8 mmol/L Low 21.0-32.0 [facility] Comment on above: Performed By: #### L 100.0100, L500.4050 #### [facility] [address] [place], [address] Creatinine [Mass/Vol] 0.69 mg/dL Low 0.70-1.20 [facility] Comment on above: Performed By: #### L 100.0100, L500.4050 #### [facility] [address] [place], [address] ECRCL 67.37 ml/min Normal 50-250 [facility] Comment on above: Performed By: #### L 100.0100, L500.4050 #### [facility] [address] [place], [address] GAP 13 Normal 5-15 [facility] Comment on above: Performed By: #### L 100.0100, L500.4050 #### [facility] [address] [place], [address] GFR/1.73 sq M.predicted among non-blacks MDRD (S/P/Bld) [Vol rate/Area] 92 mL/min/{1.73_m2} Normal >60 [facility] Comment on above: Result Comment: mL/m in/1.73m2 CKD-EPI Creatinine Equation (2020) Performed By: #### L 100.0100, L500.4050 #### [facility] [address] [place], [address] Glucose [Mass/Vol] 175 mg/dL High 70-99 [facility] Comment on above: Performed By: #### L 100.0100, L500.4050 #### [facility] [address] [place], [address] Potassium [Moles/Vol] 3.6 mmol/L Normal 3.3-5.1 [facility] Comment on above: Performed By: #### L 100.0100, L500.4050 #### [facility] [address] [place], [address] Sodium [Moles/Vol] 141 mmol/L Normal 133-145 [facility] Comment on above: Performed By: #### L 100.0100, L500.4050 #### [facility] [address] [place], [address] Urea nitrogen [Mass/Vol] 14 mg/dL Normal 4-19 [facility] Comment on above: Performed By: #### L 100.0100, L500.4050 #### [facility] [address] [place], [address] Basophil percentageOrdered B y: Remus Ungur on 06-02-2024 Basophils/100 WBC (Bld) 0.6 % 0-1 [facility] Blood cultureOrdered By: Rem us Ungur on 06-02-2024 Bacteria identified Cx Nom (Bld) No growth in 5 days. [facility] CBC W/Diff, Automatedon 05-14 Absolute Lymph 1.86 X10 3/uL Normal 0.83-4.51 [facility] Comment on above: Performed By: #### L 100.0100, L500.4050 #### [facility] [address] [place], [address] Absolute Neut 5.5 X10 3/uL Normal 2.0-7.7 [facility] Comment on above: Performed By: #### L 100.0100, L500.4050 #### [facility] [address] [place], [address] Basophils/100 WBC (Bld) 0.6 % Normal 0-1 [facility] Comment on above: Performed By: #### L 100.0100, L500.4050 #### [facility] [address] [place], [address] Eosinophils/100 WBC (Bld) 2.8 % Normal 0-5 [facility] Comment on above: Performed By: #### L 100.0100, L500.4050 #### [facility] [address] [place], [address] Erythrocyte distribution width (RBC) [Ratio] 13.1 % Normal 11.6-14.6 [facility] Comment on above: Performed By: #### L 100.0100, L500.4050 #### [facility] [address] [place], [address] Hematocrit (Bld) [Volume fraction] 43.0 % Normal 37-47 [facility] Comment on above: Performed By: #### L 100.0100, L500.4050 #### [facility] [address] [place], [address] Hemoglobin (Bld) [Mass/Vol] 14.0 g/dL Normal 12.0-15.0 [facility] Comment on above: Performed By: #### L 100.0100, L500.4050 #### [facility] [address] [place], [address] IG% 0.400 Normal 0.0-0.9 [facility] Comment on above: Result Comment: IG% - Immature Granulocytes (promyelocytes, myelocytes and metamyelocytes) > 1% indicates that a LEFT SHIFT is Present. Performed By: #### L 100.0100, L500.4050 #### [facility] [address] [place], [address] Lymphocytes/100 WBC (Bld) 22.6 % Normal 19-41 [facility] Comment on above: Performed By: #### L 100.0100, L500.4050 #### [facility] [address] [place], [address] MCH (RBC) [Entitic mass] 29.5 pg Normal 27.0-32.0 [facility] Comment on above: Performed By: #### L 100.0100, L500.4050 #### [facility] [address] [place], [address] MCHC (RBC) [Mass/Vol] 32.6 g/dL Normal 32-36 [facility] Comment on above: Performed By: #### L 100.0100, L500.4050 #### [facility] [address] [place], [address] MCV (RBC) [Entitic vol] 90.7 fL Normal 81-99 [facility] Comment on above: Performed By: #### L 100.0100, L500.4050 #### [facility] [address] [place], [address] Monocytes/100 WBC (Bld) 6.7 % Normal 0-10 [facility] Comment on above: Performed By: #### L 100.0100, L500.4050 #### [facility] [address] [place], [address] Neutrophils/100 WBC (Bld) 66.9 % Normal 47-70 [facility] Comment on above: Performed By: #### L 100.0100, L500.4050 #### [facility] [address] [place], [address] Nucleated RBC (Bld) [#/Vol] 0 10*3/uL Normal 0-5 [facility] Comment on above: Performed By: #### L 100.0100, L500.4050 #### [facility] [address] [place], [address] Platelet mean volume (Bld) [Entitic vol] 10.3 fL Normal 6.2-12.0 [facility] Comment on above: Performed By: #### L 100.0100, L500.4050 #### [facility] [address] [place], [address] Platelets (Bld) [#/Vol] 271 10*3/uL Normal 150-450 [facility] Comment on above: Performed By: #### L 100.0100, L500.4050 #### [facility] [address] [place], [address] RBC (Bld) [#/Vol] 4.74 10*6/uL Normal 4.2-5.4 [facility] Comment on above: Performed By: #### L 100.0100, L500.4050 #### [facility] [address] [place], [address] RDW SD 43.3 fl Normal 35.1-43.9 [facility] Comment on above: Performed By: #### L 100.0100, L500.4050 #### [facility] [address] [place], [address] WBC (Bld) [#/Vol] 8.2 10*3/uL Normal 4.4-11.0 [facility] Comment on above: Performed By: #### L 100.0100, L500.4050 #### [facility] [address] [facility] [place], [address] Carbon dioxide, total [Moles /volume] in Central venous bloodOrdered By: Alyce Morel on 06-02-2024 CO2 [Moles/Vol] 20.8 mmol/L Low 21.0-32.0 [facility] Chest 1 View (Portable)on Chest 1 View (Portable) [facility] Imaging Services [address] [place] [address] Chest 1 View (Portable) MR#: [id number] Acct: [id number] Name: ALTA BAKER Rep #: [id number] : 1950 F 74 From: Farhat Bsutillo MD PCP: Dr. Kory Ibarra, DO Status: [facility] ER Study: Chest 1 View (Portable) Date of Exam: 06/02/24 Exam# [id number] Ordering Dr: Alyce Morel DO EXAM: XR Chest, 1 View CLINICAL INDICATION: DYSPNEA TECHNIQUE: Frontal view of the chest. COMPARISON: No relevant prior studies available. FINDINGS: LUNGS AND PLEURAL SPACES: See below. HEART: Cardiomegaly with mild congestion. MEDIASTINUM: Unremarkable. Normal mediastinal contour. BONES/JOINTS: Unremarkable. No acute fracture. RAD/Chest 1 View (Portable) IMPRESSION: Cardiomegaly with mild congestion. Reading Location: [facility] CC: Dr. Kory Ibarra DO; Dr. Alyce Morel DO [place] Worker: Signed Normal [facility] Chloride assayOrdered By: Luanne Morel on 06-02-2024 Chloride [Moles/Vol] 107 mmol/L 98-108 [facility] Echo Completeon 06-02-2024 Echo Complete [facility] Cardiovascular Services [address] [place] [address] Echo Complete 06/03/24 1026 MR#: [id number] Acct: [id number] Name: ALTA BAKER Rep #: [id number] : 1950 74 From: Jermaine Hagen MD Attending Dr: Dr. Raul Helton MD Status: ADM IN Ordering Dr: Wilbert Umanzor DO Date: 06/02/24 Location: PCU Sex: F C Admitted: 06/02/24 Reason For [...] 1222 Date Jermaine Hagen MD CC: Dr. Wilbert Umanzor DO; Dr. Kory Ibarra DO; Dr. Raul Helton MD Date Dictated: 06/03/24 1026 Date Transcribed: 06/03/24 1222 [place] Worker: Signed Normal [facility] Emergency Department Summary on 06-02-2024 Emergency Department Summary [facility] Medical Records Department [address] [place] [address] Emergency Department Summary 06/02/24 MR#: [id number] Acct: [id number] Name: ALTA BAKER Rep #: [id number] : 1950 74 From: Alyce Morel DO PCP: Dr. Kory Ibarra DO Status:ADM IN Location: [address] History of Present Illness Chief Complaint: [...] night. Patient also with history of A-fib. [facility] Medical History (Updated 06/02/24 @ 13:23 [...] Psychiatric Psy (more content not included)... Normal [facility] Eosinophil percentageOrdered By: Alyce Morel on 06-02-2024 Eosinophils/100 WBC (Bld) 2.8 % 0-5 [facility] Erythrocyte distribution wid th ratioOrdered By: Alyce Morel on 06-02-2024 Erythrocyte distribution width (RBC) [Ratio] 13.1 % 11.6-14.6 [facility] Erythrocyte distribution wid th standard deviationOrdered By: Alyce Morel on 06-02-2024 Erythrocyte distribution width (RBC) [Entitic vol] 43.3 fL 35.1-43.9 [facility] Estimation of creatinine shelly aranceOrdered By: Alyce Morel on 06-02-2024 Estimated Creatinine Clearance Calc 67.37 ml/min 50-250 [facility] GFR/1.73 sq M.predicted austin g non-blacks MDRD (S/P/Bld) [Vol rate/Area]Ordered By: Alyce Morel on 06-02-2024 Estimated GFR (MDRD) Non-Af Amer 92 >60 [facility] Comment on above: mL/min/1.73m2 CKD-EP I Creatinine Equation (2020) H AND P Exam - Hospital[place] 06-02-2024 H&P Exam - Hospitalist [facility] Medical Records Department [address] [place] [address] H P Exam - Hospitalist 06/02/24 1320 MR#: [id number] Acct: [id number] Name: ALTA BAKER Rep #: [id number] : 1950 74 From: Wilbert Umanzor DO PCP: Dr. Kory Ibarra DO Status:ADM IN Location: [place] [address] HPI - General General Date of Admission: 06/02/24 Date of Service: 06/02/24 Chief Complaint: Worsening shortness of breath HPI Narrative ALTA BAKER, is a 74 F who presented to [facility] ED on 06/02/2024 with worsening shortness of breath. Patient has history of COPD and wears 1 to 2 L at baseline. Medical history also significant for permanent A-fib, HFpEF, pulmonary hypertension and depression. She receives most of her care through [facility]. She was recently hospitalized at [facility] from 04/27-05/08 for COPD exacerbation in setting [...] No other acute concerns at this time. [facility] Medical History (Updated 06/02/24 @ 18:35 by [...] Unknown Verified (more content not included)... Normal [facility] Hematocrit Auto (Bld) [Volum e fraction]Ordered By: Alyce Morel on 06-02-2024 Hematocrit (Bld) [Volume fraction] 43.0 % 37-47 [facility] Hemoglobin measurementOrdere d By: Alyce Morel on 06-02-2024 Hemoglobin (Bld) [Mass/Vol] 14.0 g/dL 12.0-15.0 [facility] Immature granulocytes/100 WB C Auto (Bld)Ordered By: Alyce Morel on 06-02-2024 Immature granulocytes/100 WBC (Bld) 0.400 % 0.0-0.9 [facility] Comment on above: IG% - Immature Granu locytes (promyelocytes, myelocytes and metamyelocytes) > 1% indicates that a LEFT SHIFT is Present. Influenza virus A and B and SARS-CoV-2 (COVID-19) and Respiratory syncytial virus RNAOrdered By: Alyce Morel on 06-02-2024 SARS-CoV-2 (COVID-19) RNA STEPHANIE+probe Ql (Unsp spec) [facility] L499.0042on 06-02-2024 Trop T High Sen 23 ng/L High <=14 [facility] Comment on above: Performed By: #### M 100.638 #### [facility] Laboratory [address] [place], [address] L499.0043on 06-02-2024 Trop T High Sen Normal <=14 [facility] Comment on above: Result Comment: PER KRISSY LOGGER NO LONGER NEEDED Performed By: #### L 500.4050 #### [facility] Laboratory [address] [facility] [place], [address] L501.4021on 06-02-2024 Trop T High Sen 9 ng/L Normal <=14 [facility] Comment on above: Performed By: #### L 100.0100, L500.4050 #### [facility] [address] [facility] [place], [address] L503.7505on 06-02-2024 Natriuretic peptide B (Bld) [Mass/Vol] 168 pg/mL Normal <=900 [facility] Comment on above: Result Comment: Hear t Failure Unlikely: < 300 pg/mL Heart Failure Likely < 50 Years: > 450 pg/mL 50-75 Years: > 900 pg/mL >75 Years: > 1800 pg/mL Performed By: #### L 100.0100, L500.4050 #### [facility] [address] [facility] [place], [address] L509.7001on 06-02-2024 Procalcitonin 0.20 ng/mL High <=0.10 [facility] Comment on above: Result Comment: Inte rpretation: [...] of the patient. Performed By: #### L 500.4050 #### [facility] [address] [place], [address] Laboratory - Chemistry and C hemistry - challengeOrdered By: Alyce Morel on 06-02-2024 Natriuretic peptide B (Bld) [Mass/Vol] 168 pg/mL <900 [facility] Comment on above: Heart Failure Unlike ly: < 300 pg/mLHeart Failure Likely< 50 Years: > 450 pg/mL50-75 Years: > 900 pg/mL>75 Years: > 1800 pg/mL Lactic Acidon 06-02-2024 Lactate [Moles/Vol] 1.8 mmol/L Normal 0.0-2.0 [facility] Comment on above: Order Comment: TERRI Acevedo PREVIOUS SPECIMEN REJECTED DUE TO HEMOLYSIS. 12/02/23 07 Curt Thacker. Performed By: #### L 500.4050 #### [facility] Laboratory [address] [place], [address] Lactate [Moles/Vol] 3.7 mmol/L Invalid Interpretation Code 0.0-2.0 [facility] Comment on above: Order Comment: Y Result Comment: Crit ical Result(s) Called at: by:??Results read back by same. Performed By: #### L 100.0100, L500.4050 #### [facility] [address] [place], [address] Lactic acid measurementOrder ed By: Wilbert Umanzor on 06-02-2024 Lactate [Moles/Vol] 1.8 mmol/L 0.0-2.0 [facility] Lactic acid measurementOrder ed By: Alyce Morel on 06-02-2024 Lactate [Moles/Vol] 3.7 mmol/L High 0.0-2.0 [facility] Comment on above: Critical Result(s) C alled at: by: Results read back by same. Lymphocytes Auto (Unsp spec) [#/Vol]Ordered By: Alyce Morel on 06-02-2024 Lymphocytes (Bld) [#/Vol] 1.86 10*3/uL 0.83-4.51 [facility] Lymphocytes/100 WBC Auto (Un sp spec)Ordered By: Alyce Morel on 06-02-2024 Lymphocytes/100 WBC (Bld) 22.6 % 19-41 [facility] M100.678on 06-02-2024 M100.678 Pending SARS-CoV-2 (COVID 19) Negative INFLUENZA A Negative INFLUENZA B Negative RSV PCR Negative Normal [facility] Comment on above: Performed By: #### M 100.678 #### [facility] Laboratory [address] [place] [address], [id number] MCV (mean corpuscular volume ) determinationOrdered By: Alyce Morel on 06-02-2024 MCV (RBC) [Entitic vol] 90.7 fL 81-99 [facility] Mean corpuscular hemoglobin (MCH) determinationOrdered By: Alyce Morel on 06-02-2024 MCH (RBC) [Entitic mass] 29.5 pg 27.0-32.0 [facility] Mean corpuscular hemoglobin concentration (MCHC) determinationOrdered By: Alyce Morel on 06-02-2024 MCHC (RBC) [Mass/Vol] 32.6 g/dL 32-36 [facility] Mean platelet volume determi nationOrdered By: Alyce Morel on 06-02-2024 Platelet mean volume (Bld) [Entitic vol] 10.3 fL 6.2-12.0 [facility] Monocyte percentageOrdered B y: Alyce Morel on 06-02-2024 Monocytes/100 WBC (Bld) 6.7 % 0-10 [facility] Neutrophil percentageOrdered By: Alyce Morel on 06-02-2024 Neutrophils/100 WBC (Bld) 66.9 % 47-70 [facility] No Panel InformationOrdered By: Wilbert Umanzor on 06-02-2024 Procalcitonin 0.20 ng/mL High <0.11 [facility] Comment on above: Interpretation:<0.10 -0.25 ng/mL: Antibiotic [...] Troponin T High Sensitivity 9 ng/L <14 [facility] Nucleated red blood cell per centageOrdered By: Alyce Morel on 06-02-2024 Nucleated RBC/100 WBC (Bld) [Ratio] 0 % 0-5 [facility] Platelet countOrdered By: Luanne Morel on 06-02-2024 Platelets (Bld) [#/Vol] 271 10*3/uL 150-450 [facility] Potassium (Unsp spec) [Mass/ Vol]Ordered By: Alyce Morel on 06-02-2024 Potassium [Moles/Vol] 3.6 mmol/L 3.3-5.1 [facility] RBC Auto (Bld) [#/Vol]Ordere d By: Alyce Morel on 06-02-2024 RBC (Bld) [#/Vol] 4.74 10*6/uL 4.2-5.4 [facility] RESPIRATORY PANEL MOLECULARo n 06-02-2024 RP PANEL ADENOVIRUS Not Detected INFLUENZA A Not Detected INFLUENZA A (SUBTYPE H1) Not Detected INFLUENZA A (SUBTYPE H3) Not Detected INFLUENZA B Not Detected HUMAN METAPHNEUMO Not Detected PARAINFLUENZA 1 Not Detected PARAINFLUENZA 2 Not Detected PARAINFLUENZA 3 Not Detected PARAINFLUENZA 4 Not Detected RHINOVIRUS Not Detected RSV A Not Detected RSV B Not Detected Normal [facility] Comment on above: Performed By: #### M 379.565 #### [facility] Laboratory [facility] [place], [address] Respiratory pathogens DNA an d RNA panel STEPHANIE+probe (Resp)Ordered By: Wilbert Umanzor on 06-02-2024 Respiratory Panel (PCR) [facility] Respiratory pathogens detect ion panel by molecular detection methodOrdered By: Wilbert Umanzor on 06-02-2024 Respiratory pathogens DNA and RNA panel STEPHANIE+probe (Resp) [facility] Serum creatinine measurement (mass/volume)Ordered By: Alyce Morel on 06-02-2024 Creatinine [Mass/Vol] 0.69 mg/dL Low 0.70-1.20 [facility] Serum glucose measurement (m ass/volume)Ordered By: Alyce Morel on 06-02-2024 Glucose [Mass/Vol] 175 mg/dL High 70-99 [facility] Serum or plasma calcium betzaida urement (mass/volume)Ordered By: Alyce Morel on 06-02-2024 Calcium [Mass/Vol] 8.8 mg/dL 7.6-11.0 [facility] Serum or plasma urea nitroge n measurement (mass/volume)Ordered By: Alyce Morel on 06-02-2024 Urea nitrogen [Mass/Vol] 14 mg/dL 4-19 [facility] Sodium levelOrdered By: Lino Morel on 06-02-2024 Sodium [Moles/Vol] 141 mmol/L 133-145 [facility] Troponin T.cardiac High sens itivity method [Mass/Vol]Ordered By: Alyce Morel on 06-02-2024 Troponin T High Sensitivity 2 Hour 23 ng/L High <14 [facility] Troponin T.cardiac [Mass/vol ume] in Serum or Plasma by High sensitivity methodOrdered By: Alyce Morel on 06-02-2024 Troponin T.cardiac High sensitivity method [Mass/Vol] 23 ng/L High <14 [facility] White blood cell (WBC) count Ordered By: Alyce Morel on 06-02-2024 WBC (Bld) [#/Vol] 8.2 10*3/uL 4.4-11.0 [facility] 29on 05-31-2024 29 Addended by: MIGUEL AMEZCUA on: 08/05/2024 10:49 AM Modules accepted: Orders Normal [facility] Progress Noteon 05-31-2024 Progress Note Continue CPAP Normal [facility] Progress Note TTE 04/2024 with 2+ M R. No current heart failure symptoms and appears euvolemic. -Continue Lasix 40 mg p.o. daily -Recheck echo 2 years Normal [facility] Progress Note 1+ AR per echocardio gram April 2024. Recommend good heart rate and blood pressure control. -Recheck echo 2 years -Continue metoprolol Normal [facility] Progress Note HFpEF, Stage C, Clas s II, EF 60% per TTE 04/2024. No current heart failure symptoms and euvolemic on physical exam. -Continue metoprolol 100 mg po BID -Continue Lasix 40 mg p.o. daily Heart failure self-care reviewed Normal [facility] Progress Note Normal [facility] Progress Note Permanent, nonvalvul ar. [id number] equals 4. Remains rate controlled today. Digoxin discontinued April 2024 due to dig toxicity. -Increase metoprolol 100 mg p.o. twice daily -Continue Eliquis 5 mg p.o. twice daily Normal [facility] Urgent Care Visit Reporton 0 05-25-2024 Urgent Care Visit Report [facility] [address], [address] [place] [address] OFFICE VISIT Date of Service: 05/25/24 MR#: [id number] Acct: [id number] Name: ALTA BAKER Rep #: [id number] : 1950 Provider: LOVELY Joshi Age/Sex: 74/F Location: [facility] Status: Signed Intake Vital Signs 12/02/23 13:40 [...] has been going on for 2 days. [facility] Medical History (Updated 05/26/24 @ 06:16 by [...] (6 syste (more content not included)... Normal [facility] Progress Noteon 05-16-2024 Progress Note Normal [facility] Progress Noteon 05-11-2024 Progress Note Normal [facility] 36on 05-09-2024 36 Called and spoke wit h daughter, Cysto schedule for 06/27 at 2:20pm in [place] office with Dr. Jimenez. Daughter states Pt able to walk and transfer herself. Uses walker. Normal [facility] 36 Needs cysto in office Normal [facility] 36 Pt canceled the cyst o appt for 04/18. Has not been seen for office visit with us. Should I reschedule her for cysto or should I schedule her an office visit for microhematuria and adrenal lesions? Normal [facility] [id number] 05-08-[id number] [facility] 36on 05-08-2024 36 Currently admitted. Normal [facility] BASIC METABOLIC PANELon 04-16 Anion gap [Moles/Vol] 5 mmol/L Normal 3-13 [facility] Comment on above: Performed By: #### L AB113, LAB15, [id number] ####Digital Watch Assembler: VIVIAN PANTOJA ([id number])[facility])[address] [place] [address] Calcium [Mass/Vol] 9.2 mg/dL Normal 8.8-10.0 [facility] Comment on above: Performed By: #### L AB113, LAB15, [id number] ####Digital Watch Assembler: VIVIAN PANTOJA ([phone])[facility] ([facility])[address] [place] [address] Chloride [Moles/Vol] 106 mmol/L Normal 98-107 [facility] Comment on above: Performed By: #### L AB113, LAB15, [id number] ####Digital Watch Assembler: VIVIAN PANTOJA ([id number])[facility])[address] [place] [address] [place] CO2 [Moles/Vol] 32 mmol/L High 23-31 [facility] Comment on above: Performed By: #### L AB113, LAB15, [id number] ####Digital Watch Assembler: VIVIAN PANTOJA ([id number])[facility])[address] [place] [address] Creatinine [Mass/Vol] 0.62 mg/dL Normal 0.57-1.11 [facility] Comment on above: Performed By: #### L AB113, LAB15, [id number] ####Digital Watch Assembler: VIVIAN PANTOJA ([id number])[facility])[address] [place] [address] GLOMERULAR FILTRATION RATE ML/MIN/1.73 SQ M.PREDICTED >90.0 Normal >60.0 [facility] Comment on above: Result Comment: Calc ulation based on the Chronic Kidney Disease Epidemiology Collaboration (CKD-EPI) equation refit without adjustment for race Performed By: #### L AB113, LAB15, [id number] ####Digital Watch Assembler: VIVIAN PANTOJA ([id number])[facility])[address] [place] [address] Glucose [Mass/Vol] 94 mg/dL Normal 82-115 [facility] Comment on above: Performed By: #### L AB113, LAB15, [id number] ####Digital Watch Assembler: VIVIAN PANTOJA ([id number])[facility])[address] [place] [address] Potassium [Moles/Vol] 4.2 mmol/L Normal 3.5-5.1 [facility] Comment on above: Result Comment: [facility] potassium values may be up to 0.5 mmol/L lower than serum values. Performed By: #### L AB113, LAB15, [id number] ####Digital Watch Assembler: VIVIAN PANTOJA ([id number])[facility])[address] [place] [address] [place] Sodium [Moles/Vol] 143 mmol/L Normal 136-145 [facility] Comment on above: Performed By: #### L AB113, LAB15, [id number] ####Digital Watch Assembler: VIVIAN PANTOJA ([id number])[facility])[address] [place] [address] [place] Urea nitrogen [Mass/Vol] 16 mg/dL Normal 9-23 [facility] Comment on above: Performed By: #### L AB113, LAB15, [id number] ####Digital Watch Assembler: VIVIAN PANTOJA ([id number])[facility])[address] [place] [address] Basic metabolic 1998 panelon 05-08-2024 Anion gap [Moles/Vol] 5 mmol/L 3 - 13 mmol/L [facility] Calcium [Mass/Vol] 9.2 mg/dL 8.8 - 10. 0 mg/dL [facility] Chloride [Moles/Vol] 106 mmol/L 98 - 10 7 mmol/L [facility] CO2 [Moles/Vol] 32 mmol/L High 23 - 31 mmol/L [facility] Creatinine [Mass/Vol] 0.62 mg/dL 0.57 - 1.11 mg/dL [facility] GFR/1.73 sq M.predicted (S/P/Bld) [Vol rate/Area] - PINF [facility] Glucose [Mass/Vol] 94 mg/dL 82 - 115 mg/dL [facility] Potassium [Moles/Vol] 4.2 mmol/L 3.5 - 5.1 mmol/L [facility] Sodium [Moles/Vol] 143 mmol/L 136 - 145 mmol/L [facility] Urea nitrogen [Mass/Vol] 16 mg/dL 9 - 23 mg/dL [facility] CBC (HEMOGRAM)on 05-08-2024 Erythrocyte distribution width (RBC) [Ratio] 14.9 % Normal 11.5-15.0 [facility] Comment on above: Performed By: #### L AB294 ####Digital Watch Assembler: VIVIAN PANTOJA ([id number])[facility] ([facility])[address] [place] [address] [place] Hematocrit (Bld) [Volume fraction] 25.2 % Low 35.0-47.0 [facility] Comment on above: Performed By: #### L AB294 ####Digital Watch Assembler: VIVIAN PANTOJA ([id number])[facility] ([facility])[address] [place] [address] Hemoglobin (Bld) [Mass/Vol] 7.7 g/dL Low 11.7-16.0 [facility] Comment on above: Performed By: #### L AB294 ####Digital Watch Assembler: VIVIAN PANTOJA ([id number])[facility])[address] [place] [address] IPF 14 Normal [facility] Comment on above: Performed By: #### L AB294 ####Digital Watch Assembler: VIVIAN PANTOJA ([id number])[facility] ([facility])[address] [place] [address] MCH (RBC) [Entitic mass] 27.8 pg Normal 26.0-34.0 [facility] Comment on above: Performed By: #### L AB294 ####Digital Watch Assembler: VIVIAN PANTOJA ([id number])[facility])[address] [place] [address] MCHC 30.6 % Normal 30.5-36.0 [facility] Comment on above: Performed By: #### L AB294 ####Digital Watch Assembler: VIVIAN PANTOJA ([id number])[facility] ([facility])[address] [place] [address] MCV (RBC) [Entitic vol] 91.0 fL Normal 77.0-99.0 [facility] Comment on above: Performed By: #### L AB294 ####Digital Watch Assembler: VIVIAN PANTOJA ([id number])[facility] ([facility])[address] [place] [address] Platelet mean volume (Bld) [Entitic vol] 14.2 fL High 9.0-12.7 [facility] Comment on above: Performed By: #### L AB294 ####Digital Watch Assembler: VIVIAN PANTOJA ([id number])[facility] ([facility])[address] [place] [address] Platelets (Bld) [#/Vol] 66 10*3/uL Low 140-440 [facility] Comment on above: Performed By: #### L AB294 ####Digital Watch Assembler: VIVIAN PANTOJA ([id number])[facility])[address] [place] [address] RBC (Bld) [#/Vol] 2.77 10*6/uL Low 3.80-5.20 [facility] Comment on above: Performed By: #### L AB294 ####Digital Watch Assembler: VIVIAN PANTOJA ([id number])[facility] ([facility])[address] [place] [address] WBC (Bld) [#/Vol] 14.1 10*3/uL High 3.6-10.7 [facility] Comment on above: Performed By: #### L AB294 ####Digital Watch Assembler: VIVIAN PANTOJA ([id number])[facility])[address] [place] [address] CBC panel Auto (Bld)on 05-08 Erythrocyte distribution width (RBC) [Ratio] 14.9 % 11.5 - 15.0 % [facility] Hematocrit (Bld) [Volume fraction] 25.2 % Low 35.0 - 47.0 % [facility] Hemoglobin (Bld) [Mass/Vol] 7.7 g/dL Low 11.7 - 16.0 g/dL [facility] Interpretation and review of laboratory results Abnormal [facility] IPF 14 [facility] MCH (RBC) [Entitic mass] 27.8 pg 26.0 - 34.0 pg [facility] MCHC (RBC) [Mass/Vol] 30.6 % 30.5 - 36.0 % [facility] MCV (RBC) [Entitic vol] 91 fL 77.0 - 99.0 fL [facility] Platelet mean volume (Bld) [Entitic vol] 14.2 fL High 9.0 - 12.7 fL [facility] Platelets (Bld) [#/Vol] 66 10*3/uL Low 140 - 440 10*3/uL [facility] RBC (Bld) [#/Vol] 2.77 10*6/uL Low 3.80 - 5.2 0 10*6/uL [facility] WBC (Bld) [#/Vol] 14.1 10*3/uL High 3.6 - 10.7 10*3/uL [facility] - Chemistry and C hemistry - challengeon 05-08-2024 Magnesium [Mass/Vol] 1.6 mg/dL 1.6 - 2 .6 mg/dL [facility] MAGNESIUMon 05-08-2024 Magnesium [Mass/Vol] 1.6 mg/dL Normal 1.6-2.6 [facility] Comment on above: Result Comment: ORDE R COMMENTS:Higher values can be expected in females during menses. Performed By: #### L AB113, LAB15, [id number] ####Digital Watch Assembler: VIVIAN PANTOJA ([id number])[facility] ([facility])[address] [place] [address] [place] Magnesium [Mass/Vol]on 05-08 Interpretation and review of laboratory results Normal [facility] No Panel Informationon 05-08 Interpretation and review of laboratory results Abnormal [facility] Nursing Noteon 05-08-2024 Nursing Note Medications went ove r with daughter Rhiannon. Daughter verbally expressed understanding of new meds. Patient left in her clothes and all belongings sent with patient Normal [facility] PHOSPHORUSon 05-08-2024 Phosphate [Mass/Vol] 1.8 mg/dL Low 2.3-4.7 [facility] Comment on above: Performed By: #### L AB113, LAB15, [id number] ####Digital Watch Assembler: VIVIAN PANTOJA ([id number])[facility] [place] [address] [place] Phosphate [Moles/Vol]on 04-16 Phosphate [Mass/Vol] 1.8 mg/dL Low 2.3 - 4 .7 mg/dL [facility] Progress Noteon 05-08-2024 Progress Note Normal [facility] Progress Note Normal [facility] Progress Note Normal [facility] Progress Note Normal [facility] Progress Note Normal [facility] US Heart TransthoracicOrdere d By: Iker Crandall on 05-08-2024 Ao Root Index 1.57 cm/m2 [facility] Work Phone: Aortic Root 3 cm [facility] Work Phone: Aortic valve Mean systole pressure gradient by US.doppler derived full Bernoulli 9 mmHg [facility] [employer] Work Phone: Aortic valve Orifice area by US 3.1 cm2 [facility] [employer] Work Phone: Aortic valve Peak systolic flow by US.doppler 1.4 m/s [facility] [employer] Work Phone: AR Max Velocity PISA 4.2 m/s Summ [employer] Work Phone: AR PHT 324.5 ms [facility] [employer] Work Phone: Ascending Aorta 2.9 cm [facility] [employer] Work Phone: Ascending Aorta Index 1.52 cm/m2 Sum nv [employer] Work Phone: AV Area by Peak Velocity 1.9 cm2 [facility] [employer] Work Phone: AV Area by VTI 2.1 cm2 [facility] [employer] Work Phone: AV Peak Gradient 14 mmHg [facility] [employer] Work Phone: AV Peak Velocity 1.9 m/s [facility] [employer] Work Phone: AV Velocity Ratio 0.63 [facility] [employer] Work Phone: AV VTI 34.5 cm [facility] [employer] Work Phone: KAROLINA/BSA Peak Velocity 1 cm2/m2 Sum nv [employer] Work Phone: KAROLINA/BSA VTI 1.1 cm2/m2 [facility] [employer] Work Phone: E/E' Lateral 17.67 [facility] [employer] Work Phone: E/E' Ratio (Averaged) 18.77 [facility] [employer] Work Phone: E/E' Septal 19.88 [facility] [employer] Work Phone: Est. RA Pressure 9 mmHg [facility] [employer] Work Phone: Fractional Shortening 2D 25 % 28 - 44 % [facility] [employer] Work Phone: Interpretation and review of laboratory results Abnormal [facility] [employer] Work Phone: IVC [facility] [employer] Work Phone: IVSd 0.9 cm 0.6 - 0.9 cm [facility] [employer] Work Phone: LA Diameter 6.6 cm [facility] [employer] Work Phone: LA Size Index 3.46 cm/m2 [facility] [facility] Work Phone: LA Volume 2C 94 mL Abnormal 22 - 52 mL [facility]: LA Volume 4C 100 mL Abnormal 22 - 52 mL [facility] [employer] Work Phone: LA Volume A/L 103 mL [facility] Work Phone: LA Volume BP 100 mL Abnormal 22 - 52 mL [facility] [employer] Work Phone: LA Volume Index 2C 49 mL/m2 Abnormal 16 - 34 mL/m2 [facility] [employer] Work Phone: LA Volume Index 4C 52 mL/m2 Abnormal 16 - 34 mL/m2 [facility] [employer] Work Phone: LA Volume Index A/L 54 mL/m2 16 - 34 mL/m2 [facility] Work Phone: LA Volume Index BP 52 ml/m2 Abnormal 16 - 34 ml/m2 [facility] [employer] Work Phone: LA/AO Root Ratio 2.2 [facility] [employer] Work Phone: Left ventricular Ejection fraction by US.2D+Calculated by biplane method of disks 62 % 55 - 100 % [facility] [employer] Work Phone: LV E' Lateral Velocity 9 cm/s [facility] Work Phone: LV E' Septal Velocity 8 cm/s [facility] Work Phone: LV EDV A2C 75 mL [facility] Work Phone: LV EDV A4C 88 mL [facility] Work Phone: LV EDV BP 89 mL 56 - 104 mL [facility] Work Phone: LV EDV Index A2C 39 mL/m2 [facility] Work Phone: LV EDV Index A4C 46 mL/m2 [facility] Work Phone: LV EDV Index BP 47 mL/m2 [facility] Work Phone: LV Ejection Fraction A2C 61 % [facility] Work Phone: LV Ejection Fraction A4C 59 % [facility] Work Phone: LV ESV A2C 29 mL [facility] Work Phone: LV ESV A4C 36 mL [facility] Work Phone: LV ESV BP 34 mL 19 - 49 mL [facility] Work Phone: LV ESV Index A2C 15 mL/m2 [facility] Work Phone: LV ESV Index A4C 19 mL/m2 [facility] Work Phone: LV ESV Index BP 18 mL/m2 [facility] Work Phone: LV Mass 2D 215.7 g Abnormal 67 - 162 g [facility] [employer] Work Phone: LV Mass 2D Index 112.9 g/m2 Abnormal 43 - 95 g/m2 [facility] Work Phone: LV RWT Ratio 0.3 [facility] Work Phone: LVIDd 6 cm Abnormal 3.9 - 5.3 cm [facility] Work Phone: LVIDd Index 3.14 cm/m2 [facility] Work Phone: LVIDs 4.5 cm [facility] [employer] Work Phone: LVIDs Index 2.36 cm/m2 [facility] [employer] Work Phone: LVOT Cardiac Output 8.9 liter/minute [facility] Work Phone: LVOT Diameter 2 cm [facility] Work Phone: LVOT Mean Gradient 3 mmHg [facility] [employer] Work Phone: LVOT Peak Gradient 5 mmHg [facility] [employer] Work Phone: LVOT Peak Velocity 1.2 m/s [place] Work Phone: LVOT Stroke Volume Index 38.8 mL/m2 [place] Work Phone: LVOT SV 74.1 ml [place] Work Phone: LVOT VTI 23.6 cm [place] Work Phone: LVOT:AV VTI Index 0.68 [employer] Phone: LVPWd 0.9 cm 0.6 - 0.9 cm [place] Work Phone: MV Area by PHT 3.4 cm2 [place] Work Phone: MV Area by VTI 2.2 cm2 [place] Work Phone: MV E Velocity 1.59 m/s [place] Work Phone: MV E Wave Deceleration Time 136.3 ms [employer] Phone: MV Max Velocity 1.9 m/s [place] Work Phone: MV Mean Gradient 4 mmHg [facility] Work Phone: MV Mean Velocity 0.9 m/s [place] Work Phone: MV Peak Gradient 15 mmHg [facility] Work Phone: MV PHT 64.5 ms [facility] Work Phone: MV VTI 33 cm [place] Work Phone: MV:LVOT VTI Index 1.4 [facility] Phone: RA Area 4C 74.6 mL [facility] Work Phone: RA Area 4C 72.1 mL [facility] [employer] Work Phone: RV Basal Dimension 3.9 cm [facility] [employer] Work Phone: RV Free Wall Peak S' 10 cm/s [facility] [employer] Work Phone: RV Mid Dimension 3.4 cm [facility] [employer] Work Phone: RVSP 70 mmHg [facility] [employer] Work Phone: TAPSE 1.6 cm Abnormal 1.7 cm [facility] [employer] Work Phone: TR Max Velocity 3.89 m/s [facility] [employer] Work Phone: TR Peak Gradient 60 mmHg [facility] [employer] Work Phone: [facility] [employer] Work Phone: US Heart Transthoracicon CV CPACS 30on 05-07-2024 30 Normal [facility] 30 Normal [facility] BASIC METABOLIC PANELon - Anion gap [Moles/Vol] 4 mmol/L Normal 3-13 [facility] Comment on above: Performed By: #### L [id number], [id number], [id number] ####Digital Watch Assembler: VIVIAN PANTOJA ([id number])[address] Calcium [Mass/Vol] 9.2 mg/dL Normal 8.8-10.0 [facility] Comment on above: Performed By: #### L AB113, [id number], LAB15 ####Digital Watch Assembler: VIVIAN PANTOJA ([id number])[facility] ([facility])[address] [place] [address] [place] Chloride [Moles/Vol] 108 mmol/L High 98-107 [facility] Comment on above: Performed By: #### L AB113, [id number], LAB15 ####Digital Watch Assembler: VIVIAN PANTOJA ([phone])[facility])[address] [place] [address] CO2 [Moles/Vol] 30 mmol/L Normal 23-31 [facility] Comment on above: Performed By: #### L AB113, [id number], LAB15 ####Digital Watch Assembler: VIVIAN PANTOJA ([phone])[facility])[address] [place] [address] Creatinine [Mass/Vol] 0.65 mg/dL Normal 0.57-1.11 [facility] Comment on above: Performed By: #### L AB113, [id number], LAB15 ####Digital Watch Assembler: VIVIAN PANTOJA ([id number])[facility])[address] [place] [address] GLOMERULAR FILTRATION RATE ML/MIN/1.73 SQ M.PREDICTED >90.0 Normal >60.0 [facility] Comment on above: Result Comment: Calc ulation based on the Chronic Kidney Disease Epidemiology Collaboration (CKD-EPI) equation refit without adjustment for race Performed By: #### Manpreet AB113, [id number], LAB15 ####Digital Watch Assembler: VIVIAN PANTOJA ([phone])[facility])[address] [place] [address] Glucose [Mass/Vol] 113 mg/dL Normal 82-115 [facility] Comment on above: Performed By: #### L AB113, [id number], LAB15 ####Digital Watch Assembler: VIVIAN PANTOJA ([phone])[facility])[address] [place] [address] Potassium [Moles/Vol] 5.1 mmol/L Normal 3.5-5.1 [facility] Comment on above: Result Comment: [facility] potassium values may be up to 0.5 mmol/L lower than serum values. Performed By: #### L AB113, [id number], LAB15 ####Digital Watch Assembler: VIVIAN PANTOJA ([phone])[facility])[address] [place] [address] Sodium [Moles/Vol] 142 mmol/L Normal 136-145 [facility] Comment on above: Performed By: #### L AB113, [id number], LAB15 ####Digital Watch Assembler: VIVIAN PANTOJA ([id number])[facility] ([facility])[address] [place] [address] Urea nitrogen [Mass/Vol] 19 mg/dL Normal - [facility] Comment on above: Performed By: #### L AB113, [id number], LAB15 ####Digital Watch Assembler: VIVIAN PANTOJA ([id number])[facility] [place] [address] Bacteria identified Aer cx N om (Lower resp)Ordered By: Liv Brady on 05-07-2024 Gram Stain Result Few Epithelial cells per low power field [facility] Gram Stain Result Many Polymorphonucle ar leukocytes per low power field [facility] Gram Stain Result No organisms seen [facility] Interpretation and review of laboratory results Abnormal [facility] PBP2A Negative [facility] Basic metabolic 1998 panelon 05-07-2024 Anion gap [Moles/Vol] 4 mmol/L 3 - 13 mmol/L [facility] Calcium [Mass/Vol] 9.2 mg/dL 8.8 - 10. 0 mg/dL [facility] Chloride [Moles/Vol] 108 mmol/L High 98 - 10 7 mmol/L [facility] CO2 [Moles/Vol] 30 mmol/L 23 - 31 mmol/L [facility] Creatinine [Mass/Vol] 0.65 mg/dL 0.57 - 1.11 mg/dL [facility] GFR/1.73 sq M.predicted (S/P/Bld) [Vol rate/Area] - PINF [facility] Glucose [Mass/Vol] 113 mg/dL 82 - 115 mg/dL [facility] Interpretation and review of laboratory results Abnormal [facility] Potassium [Moles/Vol] 5.1 mmol/L 3.5 - 5.1 mmol/L [facility] Sodium [Moles/Vol] 142 mmol/L 136 - 145 mmol/L [facility] Urea nitrogen [Mass/Vol] 19 mg/dL 9 - 23 mg/dL [facility] CBC (HEMOGRAM)on 05-07-2024 HEMATOCRIT Normal 35.0-47.0 [facility] Comment on above: Result Comment: Disr egard previously reported results.Corrected result: Previously reported as 29.0 % (reference range: 35.0-47.0 %) on 05/07/2024 at 0521 EST. Performed By: #### L [id number] ####Digital Watch Assembler: VIVIAN PANTOJA ([phone])[facility])[address] [place] [address] HEMOGLOBIN Normal 11.7-16.0 [facility] Comment on above: Result Comment: Disr egard previously reported results.Corrected result: Previously reported as 8.4 g/dL (reference range: 11.7-16.0 g/dL) on 05/07/2024 at 0521 EST. Performed By: #### L [id number] ####Digital Watch Assembler: VIVIAN PANTOJA ([phone])[facility])[address] [place] [address] IPF Normal [facility] Comment on above: Result Comment: Jenny ected result: Previously reported as 15 (reference range: ) on 05/07/2024 at 0521 EST. Performed By: #### L [id number] ####Digital Watch Assembler: VIVIAN PANTOJA ([id number])[address] MCH Normal 26.0-34.0 [facility] Comment on above: Result Comment: Disr egard previously reported results.Corrected result: Previously reported as 28.1 pg (reference range: 26.0-34.0 pg) on 05/07/2024 at 0521 EST. Performed By: #### L [id number] ####Digital Watch Assembler: VIVIAN PANTOJA ([id number])[address] MCHC Normal 30.5-36.0 [facility] Comment on above: Result Comment: Disr egard previously reported results.Corrected result: Previously reported as 29.0 % (reference range: 30.5-36.0 %) on 05/07/2024 at 0521 EST. Performed By: #### L [id number] ####Digital Watch Assembler: VIVIAN PANTOJA ([id number])[facility])[address] [place] [address] MCV Normal 77.0-99.0 [facility] Comment on above: Result Comment: Disr egard previously reported results.Corrected result: Previously reported as 97.0 fL (reference range: 77.0-99.0 fL) on 05/07/2024 at 0521 EST. Performed By: #### L [id number] ####Digital Watch Assembler: VIVIAN PANTOJA ([id number])[address] MPV Normal 9.0-12.7 [facility] Comment on above: Result Comment: Jenny ected result: Previously reported as 14.1 fL (reference range: 9.0-12.7 fL) on 05/07/2024 at 0521 EST. Performed By: #### L [id number] ####Digital Watch Assembler: VIVIAN PANTOJA ([id number])[address] PLATELET COUNT Normal 140-440 [facility] Comment on above: Result Comment: Disr egard previously reported results.Corrected result: Previously reported as 67 10*3/uL (reference range: 140-440 10*3/uL) on 05/07/2024 at 0521 EST. Performed By: #### L [id number] ####Digital Watch Assembler: VIVIAN PANTOJA ([id number])[address] RBC Normal 3.80-5.20 [facility] Comment on above: Result Comment: Disr egard previously reported results.Corrected result: Previously reported as 2.99 10*6/uL (reference range: 3.80-5.20 10*6/uL) on 05/07/2024 at 0521 EST. Performed By: #### L [id number] ####Digital Watch Assembler: VIVIAN PANTOJA ([id number])[address] RDW Normal 11.5-15.0 [facility] Comment on above: Result Comment: Disr egard previously reported results.Corrected result: Previously reported as 14.7 % (reference range: 11.5-15.0 %) on 05/07/2024 at 0521 EST. Performed By: #### L [id number] ####Digital Watch Assembler: VIVIAN PANTOJA ([id number])[facility] ([facility])[address] [place] [address] WBC Normal [facility] Comment on above: Result Comment: Disr marissa previously reported results. Performed By: #### L [id number] ####Digital Watch Assembler: VIVIAN PANTOJA ([phone])[facility] [place] [address] CBC W Auto Differential pane l (Bld)on 05-07-2024 Basophils (Bld) [#/Vol] 0 10*3/uL 0.0 - 0.2 10*3/uL [facility] [employer] Basophils/100 WBC (Bld) 0.3 % 0.0 - 2.0 % [facility] [employer] Eosinophils (Bld) [#/Vol] 0 10*3/uL 0.0 - 0.5 10*3/uL [facility] Eosinophils/100 WBC (Bld) 0 % 0.0 - 6.0 % [facility] [employer] Erythrocyte distribution width (RBC) [Ratio] 15.1 % High 11.5 - 15.0 % [facility] [employer] Hematocrit (Bld) [Volume fraction] 28.9 % Low 35.0 - 47.0 % [facility] [employer] Hemoglobin (Bld) [Mass/Vol] 8.7 g/dL Low 11.7 - 16.0 g/dL [facility] [employer] Immature granulocytes (Bld) [#/Vol] 0.4 10*3/uL High NINF - 0.1 10*3/uL [facility] [employer] Immature granulocytes/100 WBC (Bld) 3.5 % High 0.0 - 2.0 % [facility] [employer] Interpretation and review of laboratory results Abnormal [facility] IPF 15 [facility] [employer] Lymphocytes (Bld) [#/Vol] 1.1 10*3/uL 1.0 - 4.3 10*3/uL [facility] [employer] Lymphocytes/100 WBC (Bld) 10 % Low 15.0 - 45.0 % [facility] [employer] MCH (RBC) [Entitic mass] 27.9 pg 26.0 - 34.0 pg [facility] [employer] MCHC (RBC) [Mass/Vol] 30.1 % Low 30.5 - 36.0 % [facility] [employer] MCV (RBC) [Entitic vol] 92.6 fL 77.0 - 99.0 fL [facility] [employer] Monocytes (Bld) [#/Vol] 2 10*3/uL High 0.0 - 0.9 10*3/uL [facility] Monocytes/100 WBC (Bld) 17.3 % High 5.0 - 13.0 % [facility] Neutrophils (Bld) [#/Vol] 7.8 10*3/uL High 1.8 - 7.5 10*3/uL [facility] Neutrophils/100 WBC (Bld) 68.9 % 38.0 - 82.0 % [facility] [employer] Nucleated RBC/100 WBC (Bld) [Ratio] 0 % [facility] [employer] Platelet mean volume (Bld) [Entitic vol] 14.2 fL High 9.0 - 12.7 fL [facility] [employer] Platelets (Bld) [#/Vol] 70 10*3/uL Low 140 - 440 10*3/uL [facility] RBC (Bld) [#/Vol] 3.12 10*6/uL Low 3.80 - 5.2 0 10*6/uL [facility] WBC (Bld) [#/Vol] 11.4 10*3/uL High 3.6 - 10.7 10*3/uL [facility] CBC WITH AUTO DIFFERENTIALon 05-07-2024 Basophils (Bld) [#/Vol] 0.0 10*3/uL Normal 0.0-0.2 [facility] [employer] [facility] Comment on above: Performed By: #### L [id number] ####Digital Watch Assembler: VIVIAN PANTOJA ([id number])[address] Basophils/100 WBC (Bld) 0.3 % Normal 0.0-2.0 [facility] [employer] [facility] Comment on above: Performed By: #### L [id number] ####Digital Watch Assembler: VIVIAN PANTOJA ([id number])[facility])[address] [place] [address] Eosinophils (Bld) [#/Vol] 0.0 10*3/uL Normal 0.0-0.5 [facility] Comment on above: Performed By: #### L [id number] ####Digital Watch Assembler: VIVIAN PANTOJA ([id number])[address] Eosinophils/100 WBC (Bld) 0.0 % Normal 0.0-6.0 [facility] Comment on above: Performed By: #### L [id number] ####Digital Watch Assembler: VIVIAN PANTOJA ([id number])[facility])[address] [place] [address] Erythrocyte distribution width (RBC) [Ratio] 15.1 % High 11.5-15.0 [facility] Comment on above: Performed By: #### L [id number] ####Digital Watch Assembler: VIVIAN PANTOJA ([id number])[address] Hematocrit (Bld) [Volume fraction] 28.9 % Low 35.0-47.0 [facility] Comment on above: Performed By: #### L [id number] ####Digital Watch Assembler: VIVIAN PANTOJA ([id number])[address] Hemoglobin (Bld) [Mass/Vol] 8.7 g/dL Low 11.7-16.0 [facility] Comment on above: Performed By: #### L [id number] ####Digital Watch Assembler: VIVIAN PANTOJA ([phone])[address] IMMATURE GRANS % 3.5 % High 0.0-2.0 [facility] Comment on above: Performed By: #### L [id number] ####Digital Watch Assembler: VIVIAN PANTOJA ([id number])[address] IMMATURE GRANS ABSOLUTE 0.4 10*3/uL High <0.1 [facility] Comment on above: Performed By: #### L [id number] ####Digital Watch Assembler: VIVIAN PANTOJA ([phone])[facility])[address] [place] [address] [place] IPF 15 Normal [facility] Comment on above: Performed By: #### L [id number] ####Digital Watch Assembler: VIVIAN PANTOJA ([id number])[facility])[address] [place] [address] Lymphocytes (Bld) [#/Vol] 1.1 10*3/uL Normal 1.0-4.3 [facility] Comment on above: Performed By: #### L [id number] ####Digital Watch Assembler: VIVIAN PANTOJA ([id number])[facility])[address] [place] [address] Lymphocytes/100 WBC (Bld) 10.0 % Low 15.0-45.0 [facility] Comment on above: Performed By: #### L [id number] ####Digital Watch Assembler: VIVIAN PANTOJA ([id number])[facility])[address] [place] [address] MCH (RBC) [Entitic mass] 27.9 pg Normal 26.0-34.0 [facility] Comment on above: Performed By: #### L [id number] ####Digital Watch Assembler: VIVIAN PANTOJA ([id number])[facility])[address] [place] [address] MCHC 30.1 % Low 30.5-36.0 [facility] Comment on above: Performed By: #### L [id number] ####Digital Watch Assembler: VIVIAN PANTOJA ([phone])[facility])[address] [place] [address] MCV (RBC) [Entitic vol] 92.6 fL Normal 77.0-99.0 [facility] Comment on above: Performed By: #### L [id number] ####Digital Watch Assembler: VIVIAN PANTOJA ([id number])[facility])[address] [place] [address] Monocytes (Bld) [#/Vol] 2.0 10*3/uL High 0.0-0.9 [facility] Comment on above: Performed By: #### L [id number] ####Digital Watch Assembler: VIVIAN PANTOJA ([id number])[facility] ([facility])[address] [place] [address] Monocytes/100 WBC (Bld) 17.3 % High 5.0-13.0 [facility] Comment on above: Performed By: #### L [id number] ####Digital Watch Assembler: VIVIAN PANTOJA ([id number])[facility] ([facility])[address] [place] [address] NEUTROPHILS ABSOLUTE 7.8 10*3/uL High 1.8-7.5 [facility] Comment on above: Performed By: #### L [id number] ####Digital Watch Assembler: VIVIAN PANTOJA ([id number])[facility] ([facility])[address] [place] [address] Neutrophils/100 WBC (Bld) 68.9 % Normal 38.0-82.0 [facility] Comment on above: Performed By: #### L [id number] ####Digital Watch Assembler: VIVIAN PANTOJA ([id number])[facility] ([facility])[address] [place] [address] NRBC 0.0 /100 WBCs Normal 0.0-2.0 [facility] Comment on above: Performed By: #### L [id number] ####Digital Watch Assembler: VIVIAN PANTOJA ([id number])[facility] ([facility])[address] [place] [address] Platelet mean volume (Bld) [Entitic vol] 14.2 fL High 9.0-12.7 [facility] Comment on above: Performed By: #### L [id number] ####Digital Watch Assembler: VIVIAN PANTOJA ([id number])[facility] ([facility])[address] [place] [address] [place] Platelets (Bld) [#/Vol] 70 10*3/uL Low 140-440 [facility] Comment on above: Performed By: #### L [id number] ####Digital Watch Assembler: VIVIAN PANTOJA ([id number])[facility] ([facility])[address] [place] [address] RBC (Bld) [#/Vol] 3.12 10*6/uL Low 3.80-5.20 [facility] Comment on above: Performed By: #### L [id number] ####Digital Watch Assembler: VIVIAN PANTOJA ([id number])[facility] ([facility])[address] [place] [address] WBC (Bld) [#/Vol] 11.4 10*3/uL High 3.6-10.7 [facility] Comment on above: Performed By: #### L [id number] ####Digital Watch Assembler: VIVIAN PANTOJA ([id number])[facility] ([facility])[address] [place] [address] CBC panel Auto (Bld)on 05-07 Erythrocyte distribution width (RBC) [Ratio] [facility] Hematocrit (Bld) [Volume fraction] [facility] Hemoglobin (Bld) [Mass/Vol] [facility] IPF [facility] MCH (RBC) [Entitic mass] [facility] MCHC (RBC) [Mass/Vol] [facility] MCV (RBC) [Entitic vol] [facility] Platelet mean volume (Bld) [Entitic vol] [facility] Platelets (Bld) [#/Vol] [facility] RBC (Bld) [#/Vol] [facility] WBC (Bld) [#/Vol] [facility] - Chemistry and C hemistry - challengeon 05-07-2024 Magnesium [Mass/Vol] 1.8 mg/dL 1.6 - 2 .6 mg/dL [facility] - Microbiology an d Antimicrobial susceptibilityOrdered By: Liv Brady on 05-07-2024 Bacteria identified Aer cx Nom (Lower resp) Few respiratory mei present. [facility] Bacteria identified Aer cx Nom (Lower resp) Rare Staphylococcus aureus Abnormal [facility] MAGNESIUMon 05-07-2024 Magnesium [Mass/Vol] 1.8 mg/dL Normal 1.6-2.6 [facility] Comment on above: Result Comment: LEOBARDO R COMMENTS:Higher values can be expected in females during menses. Performed By: #### L [id number], [id number], LAB15 ####Digital Watch Assembler: VIVIAN PANTOJA ([phone])[facility])[address] [place] [address] [place] Magnesium [Mass/Vol]on 05-07 [facility] No Panel Informationon 05-07 [facility] Interpretation and review of laboratory results Normal [facility] PHOSPHORUSon 05-07-2024 Phosphate [Mass/Vol] 2.6 mg/dL Normal 2.3-4.7 [facility] Comment on above: Performed By: #### L AB113, [id number], LAB15 ####Digital Watch Assembler: VIVIAN PANTOJA ([id number])[facility])[address] [place] [address] [place] Phosphate [Moles/Vol]on 04-16 Phosphate [Mass/Vol] 2.6 mg/dL 2.3 - 4 .7 mg/dL [facility] Progress Noteon 05-07-2024 Progress Note Normal [facility] Progress Note Normal [facility] BASIC METABOLIC PANELon 04-16 Anion gap [Moles/Vol] 5 mmol/L Normal 3-13 [facility] Comment on above: Performed By: #### L AB15, [id number], [id number] ####Digital Watch Assembler: VIVIAN PANTOJA ([phone])[facility] ([facility])[address] [place] [address] [place] Calcium [Mass/Vol] 8.9 mg/dL Normal 8.8-10.0 [facility] Comment on above: Performed By: #### L AB15, [id number], [id number] ####Digital Watch Assembler: VIVIAN PANTOJA ([id number])[facility] ([facility])[address] [place] [address] [place] Chloride [Moles/Vol] 109 mmol/L High 98-107 [facility] Comment on above: Performed By: #### L AB15, [id number], [id number] ####Digital Watch Assembler: VIVIAN PANTOJA ([id number])[facility] CO2 [Moles/Vol] 30 mmol/L Normal 23-31 [facility] Comment on above: Performed By: #### L AB15, [id number], [id number] ####Digital Watch Assembler: VIVIAN PANTOJA ([phone])[facility])[address] [place] [address] Creatinine [Mass/Vol] 0.68 mg/dL Normal 0.57-1.11 [facility] Comment on above: Performed By: #### L AB15, [id number], [id number] ####Digital Watch Assembler: VIVIAN PANTOJA ([phone])[facility])[address] [place] [address] GLOMERULAR FILTRATION RATE ML/MIN/1.73 SQ M.PREDICTED >90.0 Normal >60.0 [facility] Comment on above: Result Comment: Calc ulation based on the Chronic Kidney Disease Epidemiology Collaboration (CKD-EPI) equation refit without adjustment for race Performed By: #### L AB15, [id number], [id number] ####Digital Watch Assembler: VIVIAN PANTOJA ([phone])[facility] ([facility])[address] [place] [address] Glucose [Mass/Vol] 123 mg/dL High 82-115 [facility] Comment on above: Performed By: #### L AB15, [id number], [id number] ####Digital Watch Assembler: VIVIAN PANTOJA ([phone])[facility])[address] [place] [address] Potassium [Moles/Vol] 4.4 mmol/L Normal 3.5-5.1 [facility] Comment on above: Result Comment: [facility] potassium values may be up to 0.5 mmol/L lower than serum values. Performed By: #### L AB15, [id number], [id number] ####Digital Watch Assembler: VIVIAN PANTOJA ([phone])[facility])[address] [place] [address] Sodium [Moles/Vol] 144 mmol/L Normal 136-145 [facility] Comment on above: Performed By: #### L AB15, DCH531, ICT836 ####Digital Watch Assembler: VIVIAN PANTOJA ([phone])[facility] ([facility])[address] [place] [address] Urea nitrogen [Mass/Vol] 21 mg/dL Normal 9-23 [facility] Comment on above: Performed By: #### L AB15, [id number], [id number] ####Digital Watch Assembler: VIVIAN PANTOJA ([phone])[facility] ([facility])[address] [place] [address] Basic metabolic 1998 panelon 05-06-2024 Anion gap [Moles/Vol] 5 mmol/L 3 - 13 mmol/L [facility] Calcium [Mass/Vol] 8.9 mg/dL 8.8 - 10. 0 mg/dL [facility] Chloride [Moles/Vol] 109 mmol/L High 98 - 10 7 mmol/L [facility] CO2 [Moles/Vol] 30 mmol/L 23 - 31 mmol/L [facility] Creatinine [Mass/Vol] 0.68 mg/dL 0.57 - 1.11 mg/dL [facility] GFR/1.73 sq M.predicted (S/P/Bld) [Vol rate/Area] - PINF [facility] Glucose [Mass/Vol] 123 mg/dL High 82 - 115 mg/dL [facility] Potassium [Moles/Vol] 4.4 mmol/L 3.5 - 5.1 mmol/L [facility] Sodium [Moles/Vol] 144 mmol/L 136 - 145 mmol/L [facility] Urea nitrogen [Mass/Vol] 21 mg/dL 9 - 23 mg/dL [facility] CBC (HEMOGRAM)on 05-06-2024 Erythrocyte distribution width (RBC) [Ratio] 14.8 % Normal 11.5-15.0 [facility] Comment on above: Performed By: #### L AB294 ####Digital Watch Assembler: VIVIAN PANTOJA ([phone])[facility] ([facility])[address] [place] [address] Hematocrit (Bld) [Volume fraction] 27.6 % Low 35.0-47.0 [facility] Comment on above: Performed By: #### L AB294 ####Digital Watch Assembler: VIVIAN PANTOJA ([phone])[facility] ([facility])[address] [place] [address] Hemoglobin (Bld) [Mass/Vol] 8.4 g/dL Low 11.7-16.0 [facility] Comment on above: Performed By: #### L AB294 ####Digital Watch Assembler: VIVIAN PANTOJA ([phone])[facility])[address] [place] [address] IPF 16 Normal [facility] Comment on above: Performed By: #### L AB294 ####Digital Watch Assembler: VIVIAN PANTOJA ([phone])[facility] ([facility])[address] [place] [address] MCH (RBC) [Entitic mass] 28.0 pg Normal 26.0-34.0 [facility] Comment on above: Performed By: #### L AB294 ####Digital Watch Assembler: VIVIAN PANTOJA ([phone])[facility])[address] [place] [address] MCHC 30.4 % Low 30.5-36.0 [facility] Comment on above: Performed By: #### L AB294 ####Digital Watch Assembler: VIVIAN PANTOJA ([phone])[facility])[address] [place] [address] MCV (RBC) [Entitic vol] 92.0 fL Normal 77.0-99.0 [facility] Comment on above: Performed By: #### L AB294 ####Digital Watch Assembler: VIVIAN PANTOJA ([phone])[facility] ([facility])[address] [place] [address] Platelet mean volume (Bld) [Entitic vol] 14.0 fL High 9.0-12.7 [facility] Comment on above: Performed By: #### L AB294 ####Digital Watch Assembler: VIVIAN PANTOJA ([id number])[facility])[address] [place] [address] Platelets (Bld) [#/Vol] 62 10*3/uL Low 140-440 [facility] Comment on above: Performed By: #### L AB294 ####Digital Watch Assembler: VIVIAN PANTOJA ([phone])[address] RBC (Bld) [#/Vol] 3.00 10*6/uL Low 3.80-5.20 [facility] Comment on above: Performed By: #### L AB294 ####Digital Watch Assembler: VIVIAN PANTOJA ([phone])[facility])[address] [place] [address] WBC (Bld) [#/Vol] 9.2 10*3/uL Normal 3.6-10.7 [facility] Comment on above: Performed By: #### L AB294 ####Digital Watch Assembler: VIVIAN PANTOJA ([id number])[address] CBC panel Auto (Bld)on 05-06 Erythrocyte distribution width (RBC) [Ratio] 14.8 % 11.5 - 15.0 % [facility] Hematocrit (Bld) [Volume fraction] 27.6 % Low 35.0 - 47.0 % [facility] Hemoglobin (Bld) [Mass/Vol] 8.4 g/dL Low 11.7 - 16.0 g/dL [facility] Interpretation and review of laboratory results Abnormal [facility] IPF 16 [facility] MCH (RBC) [Entitic mass] 28 pg 26.0 - 34.0 pg [facility] MCHC (RBC) [Mass/Vol] 30.4 % Low 30.5 - 36.0 % [facility] MCV (RBC) [Entitic vol] 92 fL 77.0 - 99.0 fL [facility] Platelet mean volume (Bld) [Entitic vol] 14 fL High 9.0 - 12.7 fL [facility] Platelets (Bld) [#/Vol] 62 10*3/uL Low 140 - 440 10*3/uL [facility] RBC (Bld) [#/Vol] 3 10*6/uL Low 3.80 - 5.2 0 10*6/uL [facility] WBC (Bld) [#/Vol] 9.2 10*3/uL 3.6 - 10.7 10*3/uL [facility] - Chemistry and C hemistry - challengeon 05-06-2024 Aldosterone [Mass/Vol] <1 ng/dL [facility] Magnesium [Mass/Vol] 2 mg/dL 1.6 - 2 .6 mg/dL [facility] MAGNESIUMon 05-06-2024 Magnesium [Mass/Vol] 2.0 mg/dL Normal 1.6-2.6 [facility] Comment on above: Result Comment: LEOBARDO Gill COMMENTS:Higher values can be expected in females during menses. Performed By: #### L AB15, [id number], [id number] ####Digital Watch Assembler: VIVIAN PANTOJA ([phone])[facility] ([facility])[address] [place] [address] Magnesium [Mass/Vol]on 05-06 Interpretation and review of laboratory results Normal [facility] No Panel Informationon 05-06 [facility] Interpretation and review of laboratory results Abnormal [facility] PHOSPHORUSon 05-06-2024 Phosphate [Mass/Vol] 2.1 mg/dL Low 2.3-4.7 [facility] Comment on above: Performed By: #### L AB15, [id number], [id number] ####Digital Watch Assembler: VIVIAN PANTOJA ([phone])[facility] ([facility])[address] [place] [address] [place] Phosphate [Moles/Vol]on 04-16 Phosphate [Mass/Vol] 2.1 mg/dL Low 2.3 - 4 .7 mg/dL [facility] Progress Noteon 05-06-2024 Progress Note Normal [facility] Progress Note Chart reviewed Creatinine stable We will follow peripherally over the weekend Please call with issues Normal [facility] Progress Note Normal [facility] 30on 05-05-2024 30 Normal [facility] 30 Normal [facility] [id number] 05-05-2024 [id number] Normal [facility] [id number] Normal [facility] 36on 05-05-2024 36 Still admitted. Normal [facility] BASIC METABOLIC PANELon 02-2 -2024 Anion gap [Moles/Vol] 5 mmol/L Normal 3-13 [facility] Comment on above: Performed By: #### L AB113, [id number], LAB15 ####Digital Watch Assembler: VIVIAN PANTOJA ([phone])[facility] ([facility])[address] [place] [address] Calcium [Mass/Vol] 8.6 mg/dL Low 8.8-10.0 [facility] Comment on above: Performed By: #### L AB113, [id number], LAB15 ####Digital Watch Assembler: VIVIAN PANTOJA ([phone])[facility] ([facility])[address] [place] [address] Chloride [Moles/Vol] 109 mmol/L High 98-107 [facility] Comment on above: Performed By: #### Manpreet ABToby, [id number], LAB15 ####Digital Watch Assembler: VIVIAN PANTOJA ([phone])[facility] ([facility])[address] [place] [address] CO2 [Moles/Vol] 28 mmol/L Normal 23-31 [facility] Comment on above: Performed By: #### Manpreet AB113, [id number], LAB15 ####Digital Watch Assembler: VIVIAN PANTOJA ([phone])[facility])[address] [place] [address] Creatinine [Mass/Vol] 0.77 mg/dL Normal 0.57-1.11 [facility] Comment on above: Performed By: #### L AB113, [id number], LAB15 ####Digital Watch Assembler: VIVIAN PANTOJA ([phone])[facility])[address] [place] [address] [place] GLOMERULAR FILTRATION RATE ML/MIN/1.73 SQ M.PREDICTED 81.6 mL/min/1.73m*2 Normal >60.0 [facility] Comment on above: Result Comment: Calc ulation based on the Chronic Kidney Disease Epidemiology Collaboration (CKD-EPI) equation refit without adjustment for race Performed By: #### L AB113, [id number], LAB15 ####Digital Watch Assembler: VIVIAN PANTOJA ([id number])[facility] ([facility])[address] [place] [address] Glucose [Mass/Vol] 114 mg/dL Normal 82-115 [facility] Comment on above: Performed By: #### L AB113, [id number], LAB15 ####Digital Watch Assembler: VIVIAN PANTOJA ([id number])[facility] ([facility])[address] [place] [address] Potassium [Moles/Vol] 5.0 mmol/L Normal 3.5-5.1 [facility] Comment on above: Result Comment: [facility] potassium values may be up to 0.5 mmol/L lower than serum values. Performed By: #### L AB113, [id number], LAB15 ####Digital Watch Assembler: VIVIAN PANTOJA ([id number])[facility] ([facility])[address] [place] [address] Sodium [Moles/Vol] 142 mmol/L Normal 136-145 [facility] Comment on above: Performed By: #### L AB113, [id number], LAB15 ####Digital Watch Assembler: VIVIAN PANTOJA ([phone])[facility] ([facility])[address] [place] [address] Urea nitrogen [Mass/Vol] 26 mg/dL High 9-23 [facility] Comment on above: Performed By: #### L AB113, ZET351, LAB15 ####Digital Watch Assembler: VIVIAN PANTOJA ([phone])[facility])[address] [place] [address] Basic metabolic 1998 panelon 05-05-2024 Anion gap [Moles/Vol] 5 mmol/L 3 - 13 mmol/L [facility] Calcium [Mass/Vol] 8.6 mg/dL Low 8.8 - 10. 0 mg/dL [facility] Chloride [Moles/Vol] 109 mmol/L High 98 - 10 7 mmol/L [facility] CO2 [Moles/Vol] 28 mmol/L 23 - 31 mmol/L [facility] Creatinine [Mass/Vol] 0.77 mg/dL 0.57 - 1.11 mg/dL [facility] GFR/1.73 sq M.predicted (S/P/Bld) [Vol rate/Area] 81.6 mL/min - PINF [facility] Glucose [Mass/Vol] 114 mg/dL 82 - 115 mg/dL [facility] Potassium [Moles/Vol] 5 mmol/L 3.5 - 5.1 mmol/L [facility] Sodium [Moles/Vol] 142 mmol/L 136 - 145 mmol/L [facility] Urea nitrogen [Mass/Vol] 26 mg/dL High 9 - 23 mg/dL [facility] CALCIUM, IONIZEDon CALCIUM IONIZED 4.50 mg/dL Normal 4.30-5.20 [facility] Comment on above: Performed By: #### L AB54 ####Digital Watch Assembler: VIVIAN PANTOJA ([phone])[facility])[address] [place] [address] PH, IONIZED CALCIUM 7.28 Low 7.31-7.46 [facility] Comment on above: Performed By: #### L AB54 ####Digital Watch Assembler: VIVIAN PANTOJA ([phone])[facility] ([facility])[address] [place] [address] CBC (HEMOGRAM)on 05-05-2024 Erythrocyte distribution width (RBC) [Ratio] 15.0 % Normal 11.5-15.0 [facility] Comment on above: Performed By: #### L AB294 ####Digital Watch Assembler: VIVIAN PANTOJA ([id number])[facility] ([facility])[address] [place] [address] Hematocrit (Bld) [Volume fraction] 28.0 % Low 35.0-47.0 [facility] Comment on above: Performed By: #### L AB294 ####Digital Watch Assembler: VIVIAN PANTOJA ([phone])[facility])[address] [place] [address] Hemoglobin (Bld) [Mass/Vol] 8.4 g/dL Low 11.7-16.0 [facility] Comment on above: Performed By: #### L AB294 ####Digital Watch Assembler: VIVIAN PANTOJA ([phone])[facility] ([facility])[address] [place] [address] IPF 16 Normal [facility] Comment on above: Performed By: #### L AB294 ####Digital Watch Assembler: VIVIAN PANTOJA ([id number])[facility] ([facility])[address] [place] [address] MCH (RBC) [Entitic mass] 27.8 pg Normal 26.0-34.0 [facility] Comment on above: Performed By: #### L AB294 ####Digital Watch Assembler: VIVIAN PANTOJA ([phone])[facility])[address] [place] [address] MCHC 30.0 % Low 30.5-36.0 [facility] Comment on above: Performed By: #### L AB294 ####Digital Watch Assembler: VIVIAN PANTOJA ([phone])[facility] ([facility])[address] [place] [address] MCV (RBC) [Entitic vol] 92.7 fL Normal 77.0-99.0 [facility] Comment on above: Performed By: #### L AB294 ####Digital Watch Assembler: VIVIAN PANTOJA ([id number])[facility] ([facility])[address] [place] [address] MPV Normal [facility] Comment on above: Result Comment: Unab le to calculate result. Performed By: #### L AB294 ####Digital Watch Assembler: VIVIAN PANTOJA ([phone])[facility] ([facility])[address] [place] [address] Platelets (Bld) [#/Vol] 57 10*3/uL Low 140-440 [facility] Comment on above: Performed By: #### L AB294 ####Digital Watch Assembler: VIVIAN PANTOJA ([phone])[facility])[address] [place] [address] RBC (Bld) [#/Vol] 3.02 10*6/uL Low 3.80-5.20 [facility] Comment on above: Performed By: #### L AB294 ####Digital Watch Assembler: VIVIAN PANTOJA ([id number])[facility])[address] [place] [address] WBC (Bld) [#/Vol] 6.8 10*3/uL Normal 3.6-10.7 [facility] Comment on above: Performed By: #### L AB294 ####Digital Watch Assembler: VIVIAN PANTOJA ([phone])[facility] ([facility])[address] [place] [address] CBC panel Auto (Bld)on 05-05 Erythrocyte distribution width (RBC) [Ratio] 15 % 11.5 - 15.0 % [facility] Hematocrit (Bld) [Volume fraction] 28 % Low 35.0 - 47.0 % [facility] Hemoglobin (Bld) [Mass/Vol] 8.4 g/dL Low 11.7 - 16.0 g/dL [facility] Interpretation and review of laboratory results Abnormal [facility] IPF 16 [facility] MCH (RBC) [Entitic mass] 27.8 pg 26.0 - 34.0 pg [facility] MCHC (RBC) [Mass/Vol] 30 % Low 30.5 - 36.0 % [facility] MCV (RBC) [Entitic vol] 92.7 fL 77.0 - 99.0 fL [facility] Platelet mean volume (Bld) [Entitic vol] [facility] Platelets (Bld) [#/Vol] 57 10*3/uL Low 140 - 440 10*3/uL [facility] RBC (Bld) [#/Vol] 3.02 10*6/uL Low 3.80 - 5.2 0 10*6/uL [facility] WBC (Bld) [#/Vol] 6.8 10*3/uL 3.6 - 10.7 10*3/uL [facility] Calcium.ionized [Moles/Vol]O rdered By: Andrew Jacinto on 05-05-2024 Calcium.ionized (Bld) [Moles/Vol] 4.5 mg/dL 4.30 - 5.20 mg/dL [facility] Interpretation and review of laboratory results Abnormal [facility] PH, IONIZED CALCIUM 7.28 Low 7.31 - 7.46 [facility] HIV 1+2 Ab+HIV1 p24 Ag IA Ql Ordered By: Miles Greco on 05-05-2024 Interpretation and review of laboratory results Normal [facility] - Chemistry and C hemistry - challengeon 05-05-2024 Magnesium [Mass/Vol] 1.7 mg/dL 1.6 - 2 .6 mg/dL [facility] - Microbiology an d Antimicrobial susceptibilityOrdered By: Miles Greco on 05-05-2024 HIV 1+2 Ab+HIV1 p24 Ag IA Ql Non-Reactive Nonreactive [facility] MAGNESIUMon 05-05-2024 Magnesium [Mass/Vol] 1.7 mg/dL Normal 1.6-2.6 [facility] Comment on above: Result Comment: LEOBARDO Gill COMMENTS:Higher values can be expected in females during menses. Performed By: #### L AB113, [id number], LAB15 ####Digital Watch Assembler: VIVIAN PANTOJA ([phone])[facility] ([facility])[address] [place] [address] Magnesium [Mass/Vol]on 05-05 Interpretation and review of laboratory results Normal [facility] No Panel Informationon 05-05 Interpretation and review of laboratory results Abnormal [facility] PHOSPHORUSon 05-05-2024 Phosphate [Mass/Vol] 2.1 mg/dL Low 2.3-4.7 [facility] Comment on above: Performed By: #### L AB113, DEL096, LAB15 ####Digital Watch Assembler: VIVIAN PANTOJA ([phone])[facility] ([facility])[address] [place] [address] Phosphate [Moles/Vol]on 04-16 Phosphate [Mass/Vol] 2.1 mg/dL Low 2.3 - 4 .7 mg/dL [facility] Progress Noteon 05-05-2024 Progress Note Normal [facility] Progress Note Normal [facility] Progress Note Normal [facility] Progress Note Normal [facility] Progress Note Normal [facility] Progress Note Normal [facility] Progress Note Normal [facility] 30on 05-04-2024 30 Pt hemodynamically stable-Transfer orders written to [facility]-Daughter here visiting and aware and also updated Normal [facility] 30 Normal [facility] [id number] 05-04-2024 [id number] Normal [facility] [id number] Normal [facility] BASIC METABOLIC PANELon 04-16 Anion gap [Moles/Vol] 7 mmol/L Normal 3-13 [facility] Comment on above: Performed By: #### L AB15, [id number], CFG885 ####Digital Watch Assembler: VIVIAN PANTOJA ([phone])[facility] ([facility])[address] [place] [address] Calcium [Mass/Vol] 8.4 mg/dL Low 8.8-10.0 [facility] Comment on above: Performed By: #### L AB15, OYA171, ONO376 ####Digital Watch Assembler: VIVIAN PANTOJA ([phone])[facility] ([facility])[address] [place] [address] [place] Chloride [Moles/Vol] 109 mmol/L High 98-107 [facility] Comment on above: Performed By: #### L AB15, DAT799, XFI100 ####Digital Watch Assembler: VIVIAN PANTJOA ([phone])[facility] ([facility])[address] [place] [address] [place] CO2 [Moles/Vol] 27 mmol/L Normal 23-31 [facility] Comment on above: Performed By: #### L AB15, YKR369, KDY606 ####Digital Watch Assembler: VIVIAN PANTOJA ([phone])[facility] ([facility])[address] [place] [address] [place] Creatinine [Mass/Vol] 0.93 mg/dL Normal 0.57-1.11 [facility] Comment on above: Performed By: #### L AB15, YIV618, TIB576 ####Digital Watch Assembler: VIVIAN PANTOJA ([phone])[facility] ([facility])[address] [place] [address] [place] GLOMERULAR FILTRATION RATE ML/MIN/1.73 SQ M.PREDICTED 65.0 mL/min/1.73m*2 Normal >60.0 [facility] Comment on above: Result Comment: Calc ulation based on the Chronic Kidney Disease Epidemiology Collaboration (CKD-EPI) equation refit without adjustment for race Performed By: #### L AB15, [id number], VET834 ####Digital Watch Assembler: VIVIAN PANTOJA ([phone])[facility] ([facility])[address] [place] [address] Glucose [Mass/Vol] 95 mg/dL Normal 82-115 [facility] Comment on above: Performed By: #### L AB15, HWR270, RHX136 ####Digital Watch Assembler: VIVIAN PANTOJA ([phone])[facility])[address] [place] [address] Potassium [Moles/Vol] 4.1 mmol/L Normal 3.5-5.1 [facility] Comment on above: Result Comment: [facility] potassium values may be up to 0.5 mmol/L lower than serum values. Performed By: #### L AB15, OBU750, MGA574 ####Digital Watch Assembler: VIVIAN PANTOJA ([id number])[facility] ([facility])[address] [place] [address] Sodium [Moles/Vol] 143 mmol/L Normal 136-145 [facility] Comment on above: Performed By: #### L AB15, OWH078, SAY591 ####Digital Watch Assembler: VIVIAN PANTOAJ ([phone])[facility])[address] [place] [address] Urea nitrogen [Mass/Vol] 23 mg/dL Normal 9-23 [facility] Comment on above: Performed By: #### L AB15, IHD139, BUP977 ####Digital Watch Assembler: VIVIAN PANTOJA ([phone])[facility])[address] [place] [address] BLOOD GAS, VENOUSon 05-04-19 25 Base excess Calc (BldV) [Moles/Vol] 1.7 mmol/L Normal -3.0-3.0 [facility] Comment on above: Performed By: #### L AB79 ####Digital Watch Assembler: VIVIAN PANTOJA ([phone])[facility] ([facility])[address] [place] [address] [place] CO2 [Moles/Vol] 30.9 mmol/L High 24.0-28.0 [facility] Comment on above: Performed By: #### L AB79 ####Digital Watch Assembler: VIVIAN PANTOJA ([phone])[facility] ([facility])[address] [place] [address] HCO3 (Bld) [Moles/Vol] 29.0 mmol/L High 23.0-27.0 [facility] Comment on above: Performed By: #### L AB79 ####Digital Watch Assembler: VIVIAN PANTOJA ([phone])[facility])[address] [place] [address] Hemoglobin (Bld) [Mass/Vol] 9.6 g/dL Normal Screen only [facility] Comment on above: Performed By: #### L AB79 ####Digital Watch Assembler: VIVIAN PANTOJA ([phone])[facility] ([facility])[address] [place] [address] OXYGEN (MM HG) IN VENOUS BLOOD 58.1 mm Hg Normal [facility] Comment on above: Performed By: #### L AB79 ####Digital Watch Assembler: VIVIAN PANTOJA ([phone])[facility] ([facility])[address] [place] [address] OXYGEN SATURATION (%) IN VENOUS BLOOD 86.4 % Normal [facility] Comment on above: Performed By: #### L [id number] ####Digital Watch Assembler: VIVIAN PANTOJA ([id number])[facility] ([facility])[address] [place] [address] [place] PCO2, CHA 61.2 mm Hg High 40.0-55.0 [facility] Comment on above: Performed By: #### L [id number] ####Digital Watch Assembler: VIVIAN PANTOJA ([id number])[facility] ([facility])[address] [place] [address] [place] PH VENOUS 7.294 Low 7.330-7.430 [facility] Comment on above: Performed By: #### L [id number] ####Digital Watch Assembler: VIVIAN PANTOJA ([id number])[facility])[address] [place] [address] SOURCE OF OXYGEN 2L Normal [facility] Comment on above: Result Comment: LEOBARDO Gill COMMENTS:Assessment of oxygenation is best done with an arterial blood gas determination. Reference ranges for pO2, bicarbonate, and base excess are for mixed venous blood. Specimens drawn from a peripheral vein will often have higher values. Performed By: #### L AB79 ####Digital Watch Assembler: VIVIAN PANTOJA ([id number])[facility])[address] [place] [address] Base excess Calc (BldV) [Moles/Vol] 3.3 mmol/L High -3.0-3.0 [facility] Comment on above: Performed By: #### L AB79 ####Digital Watch Assembler: VIVIAN PANTOJA ([id number])[facility] ([facility])[address] [place] [address] CO2 [Moles/Vol] 31.4 mmol/L High 24.0-28.0 [facility] Comment on above: Performed By: #### L AB79 ####Digital Watch Assembler: VIVIAN PANTOJA ([id number])[facility])[address] [place] [address] HCO3 (Bld) [Moles/Vol] 29.7 mmol/L High 23.0-27.0 [facility] Comment on above: Performed By: #### L AB79 ####Digital Watch Assembler: VIVIAN PANTOJA ([phone])[facility])[address] [place] [address] Hemoglobin (Bld) [Mass/Vol] 9.3 g/dL Normal Screen only [facility] Comment on above: Performed By: #### L AB79 ####Digital Watch Assembler: VIVIAN PANTOJA ([phone])[facility])[address] [place] [address] OXYGEN (MM HG) IN VENOUS BLOOD 42.2 mm Hg Normal [facility] Comment on above: Performed By: #### L AB79 ####Digital Watch Assembler: VIVIAN PANTOJA ([id number])[facility])[address] [place] [address] OXYGEN SATURATION (%) IN VENOUS BLOOD 72.0 % Normal [facility] Comment on above: Performed By: #### L AB79 ####Digital Watch Assembler: VIVIAN PANTOJA ([id number])[facility])[address] [place] [address] PCO2, CHA 55.6 mm Hg High 40.0-55.0 [facility] Comment on above: Performed By: #### L AB79 ####Digital Watch Assembler: VIVIAN PANTOJA ([id number])[facility])[address] [place] [address] PH VENOUS 7.346 Normal 7.330-7.430 [facility] Comment on above: Performed By: #### L AB79 ####Digital Watch Assembler: VIVIAN PANTOJA ([id number])[address] SOURCE OF OXYGEN 30% Oxygen Normal [facility] Comment on above: Result Comment: WALDO CHAVEZ COMMENTS:Assessment of oxygenation is best done with an arterial blood gas determination. Reference ranges for pO2, bicarbonate, and base excess are for mixed venous blood. Specimens drawn from a peripheral vein will often have higher values. Performed By: #### L AB79 ####Digital Watch Assembler: VIVIAN PANTOJA ([id number])[facility] ([facility])[address] [place] [address] Basic metabolic 1998 panelon 05-04-2024 Anion gap [Moles/Vol] 7 mmol/L 3 - 13 mmol/L [facility] Calcium [Mass/Vol] 8.4 mg/dL Low 8.8 - 10. 0 mg/dL [facility] Chloride [Moles/Vol] 109 mmol/L High 98 - 10 7 mmol/L [facility] CO2 [Moles/Vol] 27 mmol/L 23 - 31 mmol/L [facility] Creatinine [Mass/Vol] 0.93 mg/dL 0.57 - 1.11 mg/dL [facility] GFR/1.73 sq M.predicted (S/P/Bld) [Vol rate/Area] 65 mL/min - PINF [facility] Glucose [Mass/Vol] 95 mg/dL 82 - 115 mg/dL [facility] Potassium [Moles/Vol] 4.1 mmol/L 3.5 - 5.1 mmol/L [facility] Sodium [Moles/Vol] 143 mmol/L 136 - 145 mmol/L [facility] Urea nitrogen [Mass/Vol] 23 mg/dL 9 - 23 mg/dL [facility] CALCIUM, IONIZEDon CALCIUM IONIZED 4.30 mg/dL Normal 4.30-5.20 [facility] Comment on above: Performed By: #### L AB54 ####Digital Watch Assembler: VIVIAN PANTOJA ([id number])[facility])[address] [place] [address] PH, IONIZED CALCIUM 7.35 Normal 7.31-7.46 [facility] Comment on above: Performed By: #### L AB54 ####Digital Watch Assembler: VIVIAN PANTOJA ([id number])[facility])[address] [place] [address] CBC (HEMOGRAM)on 05-04-2024 Erythrocyte distribution width (RBC) [Ratio] 15.1 % High 11.5-15.0 [facility] Comment on above: Performed By: #### L AB294 ####Digital Watch Assembler: VIVIAN PANTOJA ([id number])[facility])[address] [place] [address] Hematocrit (Bld) [Volume fraction] 26.7 % Low 35.0-47.0 [facility] Comment on above: Performed By: #### L [id number] ####Digital Watch Assembler: VIVIAN PANTOJA ([id number])[facility])[address] [place] [address] Hemoglobin (Bld) [Mass/Vol] 8.2 g/dL Low 11.7-16.0 [facility] Comment on above: Performed By: #### L AB294 ####Digital Watch Assembler: VIVIAN PANTOJA ([id number])[facility] ([facility])[address] [place] [address] IPF 13 Normal [facility] Comment on above: Performed By: #### L [id number] ####Digital Watch Assembler: VIVIAN PANTOJA ([id number])[facility] ([facility])[address] [place] [address] MCH (RBC) [Entitic mass] 27.9 pg Normal 26.0-34.0 [facility] Comment on above: Performed By: #### L AB294 ####Digital Watch Assembler: VIVIAN PANTOJA ([id number])[facility])[address] [place] [address] MCHC 30.7 % Normal 30.5-36.0 [facility] Comment on above: Performed By: #### L [id number] ####Digital Watch Assembler: VIVIAN PANTOJA ([phone])[facility] ([facility])[address] [place] [address] MCV (RBC) [Entitic vol] 90.8 fL Normal 77.0-99.0 [facility] Comment on above: Performed By: #### L [id number] ####Digital Watch Assembler: VIVIAN PANTOJA ([id number])[facility] ([facility])[address] [place] [address] Platelet mean volume (Bld) [Entitic vol] 13.8 fL High 9.0-12.7 [facility] Comment on above: Performed By: #### L [id number] ####Digital Watch Assembler: VIVIAN PANTOJA ([id number])[facility] ([facility])[address] [place] [address] [place] Platelets (Bld) [#/Vol] 46 10*3/uL Low 140-440 [facility] Comment on above: Performed By: #### L [id number] ####Digital Watch Assembler: VIVIAN PANTOJA ([id number])[facility] ([facility])[address] [place] [address] RBC (Bld) [#/Vol] 2.94 10*6/uL Low 3.80-5.20 [facility] Comment on above: Performed By: #### L [id number] ####Digital Watch Assembler: VIVIAN PANTOJA ([id number])[facility] ([facility])[address] [place] [address] WBC (Bld) [#/Vol] 6.9 10*3/uL Normal 3.6-10.7 [facility] Comment on above: Performed By: #### L [id number] ####Digital Watch Assembler: VIIVAN PANTOJA ([id number])[facility] ([facility])[address] [place] [address] CBC panel Auto (Bld)Ordered By: Alize Peraza on 05-04-2024 Erythrocyte distribution width (RBC) [Ratio] 15.1 % High 11.5 - 15.0 % [facility] Hematocrit (Bld) [Volume fraction] 26.7 % Low 35.0 - 47.0 % [facility] Hemoglobin (Bld) [Mass/Vol] 8.2 g/dL Low 11.7 - 16.0 g/dL [facility] Interpretation and review of laboratory results Abnormal [facility] IPF 13 [facility] MCH (RBC) [Entitic mass] 27.9 pg 26.0 - 34.0 pg [facility] MCHC (RBC) [Mass/Vol] 30.7 % 30.5 - 36.0 % [facility] MCV (RBC) [Entitic vol] 90.8 fL 77.0 - 99.0 fL [facility] Platelet mean volume (Bld) [Entitic vol] 13.8 fL High 9.0 - 12.7 fL [facility] Platelets (Bld) [#/Vol] 46 10*3/uL Low 140 - 440 10*3/uL [facility] RBC (Bld) [#/Vol] 2.94 10*6/uL Low 3.80 - 5.2 0 10*6/uL [facility] WBC (Bld) [#/Vol] 6.9 10*3/uL 3.6 - 10.7 10*3/uL [facility] Calcium.ionized [Moles/Vol]o n 05-04-2024 Calcium.ionized (Bld) [Moles/Vol] 4.3 mg/dL 4.30 - 5.20 mg/dL [facility] Interpretation and review of laboratory results Normal [facility] PH, IONIZED CALCIUM 7.35 7.31 - 7.46 [facility] Cobalamin (Vitamin B12) [Mas s/Vol]on 05-04-2024 Interpretation and review of laboratory results Normal [facility] Consulton 05-04-2024 Consult Normal [facility] HIV1,2 COMBO ANTIGEN-ANTIBOD Y SCREENon 05-04-2024 HIV 1,2 COMBO ANTIGEN/ANTIBODY Non-Reactive Normal Nonreactive [facility] Comment on above: Result Comment: The specimen was non-reactive for HIV-1 and HIV-2 antibodies and p24 antigen using an FDA-cleared 4th generation HIV test. Based on this non-reactive screen result, further reflexive testing was not indicated and was, therefore, not performed. Performed By: #### L [id number] ####Digital Watch Assembler: VIVIAN PANTOJA ([id number])[address] Laboratory - Chemistry and C hemistry - challengeon 05-04-2024 Procalcitonin [Mass/Vol] 0.11 ng/mL High NINF - 0.07 ng/mL [facility] Cobalamin (Vitamin B12) [Mass/Vol] 806 pg/mL 213 - 816 pg/mL [facility] Magnesium [Mass/Vol] 1.6 mg/dL 1.6 - 2 .6 mg/dL [facility] Base excess Calc (BldV) [Moles/Vol] 3.3 mmol/L High -3.0 - 3.0 mmol/L [facility] CO2 (BldV) [Partial pressure] 55.6 mm[Hg] High [facility] CO2 [Moles/Vol] 31.4 mmol/L High 24.0 - 28.0 mmol/L [facility] HCO3 (Bld) [Moles/Vol] 29.7 mmol/L High 23.0 - 27.0 mmol/L [facility] Oxygen (BldV) [Partial pressure] 42.2 mm[Hg] mm Hg [facility] pH (BldV) 7.346 [pH] 7.330 - 7.430 [facility] Laboratory - Chemistry and C hemistry - challengeOrdered By: Elias Swab on 05-04-2024 Base excess Calc (BldV) [Moles/Vol] 1.7 mmol/L -3.0 - 3.0 mmol/L [facility] CO2 (BldV) [Partial pressure] 61.2 mm[Hg] High [facility] CO2 [Moles/Vol] 30.9 mmol/L High 24.0 - 28.0 mmol/L [facility] HCO3 (Bld) [Moles/Vol] 29 mmol/L High 23.0 - 27.0 mmol/L [facility] Oxygen (BldV) [Partial pressure] 58.1 mm[Hg] mm Hg [facility] pH (BldV) 7.294 [pH] Low 7.330 - 7.430 [facility] Laboratory - Hematology and Cell countsOrdered By: Elias Swab on 05-04-2024 Hemoglobin (Bld) [Mass/Vol] 9.6 g/dL Screen only [facility] Laboratory - Hematology and Cell countson 05-04-2024 Hemoglobin (Bld) [Mass/Vol] 9.3 g/dL Screen only [facility] MAGNESIUMon 05-04-2024 Magnesium [Mass/Vol] 1.6 mg/dL Normal 1.6-2.6 [facility] Comment on above: Result Comment: LEOBARDO Gill COMMENTS:Higher values can be expected in females during menses. Performed By: #### L AB15, [id number], [id number] ####Digital Watch Assembler: VIVIAN PANTOJA ([id number])[address] Magnesium [Mass/Vol]on 05-04 Interpretation and review of laboratory results Normal [facility] No Panel InformationOrdered By: Elias Swab on 05-04-2024 Interpretation and review of laboratory results Abnormal [facility] Source Of Oxygen 2L [facility] No Panel Informationon 05-04 Interpretation and review of laboratory results Abnormal [facility] Interpretation and review of laboratory results Abnormal [facility] Source Of Oxygen 30% Oxygen [facility] PHOSPHORUSon 05-04-2024 Phosphate [Mass/Vol] 2.1 mg/dL Low 2.3-4.7 [facility] Comment on above: Performed By: #### L AB15, [id number], [id number] ####Digital Watch Assembler: VIVIAN PANTOJA ([id number])[facility])[address] [place] [address] PNEUMONIA PCR PANELon 2024 PNEUMONIA PCR PANEL Normal [facility] Comment on above: Performed By: #### L [id number] ####Digital Watch Assembler: VIVIAN PANTOJA ([phone])[facility])[address] [place] [address] PROCALCITONIN TESTon 025 PROCALCITONIN 0.11 ng/mL High <0.07 [facility] Comment on above: Result Comment: LEOBARDO R COMMENTS:PCT <0.50 = Low risk of severe sepsis and/or septic shock.PCT >2.00 = High risk of severe sepsis and/or septic shock. Performed By: #### L [id number] ####Digital Watch Assembler: VIVIAN PANTOJA ([id number])[facility])[address] [place] [address] [place] Phosphate [Moles/Vol]on 04-16 Phosphate [Mass/Vol] 2.1 mg/dL Low 2.3 - 4 .7 mg/dL [facility] Procalcitonin [Mass/Vol]on 0 05-04-2024 Interpretation and review of laboratory results Abnormal [facility] Progress Noteon 05-04-2024 Progress Note Normal [facility] Progress Note Normal [facility] Progress Note Normal [facility] Progress Note Normal [facility] Progress Note Normal [facility] Progress Note Normal [facility] RESPIRATORY CULTURE AND STAI Non 05-04-2024 RESPIRATORY CULTURE AND STAIN Normal [facility] Comment on above: Performed By: #### L [id number] ####Digital Watch Assembler: VIVIAN PANTOJA ([id number])[facility])[address] [place] [address] Respiratory pathogens DNA an d RNA panel STEPHANIE+non-probe (Lower resp)Ordered By: Danna Perez on 05-04-2024 Acinetobacter baumannii complex Not detected Not Detected [facility] Adenovirus Not detected Not Detected [facility] Chlamydia pneumoniae Not detected Not Detected [facility] Enterobacter cloacae complex Not detected Not Detected [facility] Escherichia coli Not detected Not Detected [facility] FLUAV RNA STEPHANIE+non-probe Ql (Lower resp) Detected Abnormal Not Detected [facility] FLUBV RNA STEPHANIE+non-probe Ql (Lower resp) Not detected Not Detected [facility] Haemophilus influenzae Not detected Not Detecte d [facility] Human Metapneumovirus Not detected Not Detected [facility] Human Rhinovirus/Enterovirus Not detected Not Detected [facility] Interpretation and review of laboratory results Abnormal [facility] Klebsiella (Enterobacter) aerogenes Not detected Not Detected [facility] Klebsiella oxytoca Not detected Not Detected [facility] Klebsiella pneumoniae Not detected Not Detected [facility] Legionella pneumophila Not detected Not Detecte d [facility] mecA Not detected Not Detected [facility] Moraxella catarrhalis Not detected Not Detected [facility] Mycoplasma pneumoniae Not detected Not Detected [facility] Parainfluenza virus Not detected Not Detected [facility] Proteus spp Not detected Not Detected [facility] Pseudomonas aeruginosa Not detected Not Detecte d [facility] RSV RNA STEPHANIE+probe Ql (Resp) Not detected Not Detected [facility] S. agalactiae Org specific cx Ql (Vag fld) Not detected Not Detected [facility] SARS-CoV-2 (COVID-19) RNA STEPHANIE+non-probe Ql (Nph) Not detected Not Detected [facility] Serratia marcescens Not detected Not Detected [facility] Staphylococcus aureus Detected Abnormal Not Detected [facility] Streptococcus pneumoniae Not detected Not Detected [facility] Streptococcus pyogenes Not detected Not Detecte d [facility] VITAMIN B12on 05-04-2024 Cobalamin (Vitamin B12) [Mass/Vol] 806 pg/mL Normal 213-816 [facility] Comment on above: Performed By: #### L AB67 ####Digital Watch Assembler: AMAN SANTOS ([phone])[facility])[address] [place], [place] [id number] [facility] Vital signsOrdered By: Ellen rowley Swab on 05-04-2024 Oxygen saturation in Venous blood 86.4 % [facility] Vital signson 05-04-2024 Oxygen saturation in Venous blood 72 % [facility] XR CHEST 1 VIEWon 05-04-2024 XR CHEST 1 VIEW Normal [facility] XR Chest Single viewon 05-04 [facility] Radiology Study observation (narrative) [facility] [id number] 05-03-2024 [id number] Normal [facility] 36on 05-03-2024 36 Currently admitted Normal [facility] BASIC METABOLIC PANELon 04-15 Anion gap [Moles/Vol] 5 mmol/L Normal 3-13 [facility] Comment on above: Performed By: #### L [id number], LAB15, LAB69 ####Digital Watch Assembler: VIVIAN PANTOJA ([phone])[facility])[address] [place] [address] Calcium [Mass/Vol] 8.6 mg/dL Low 8.8-10.0 [facility] Comment on above: Performed By: #### Manpreet [id number], LAB15, LAB69 ####Digital Watch Assembler: VIVIAN PANTOJA ([id number])[facility] [place] [address] [place] Chloride [Moles/Vol] 111 mmol/L High 98-107 [facility] Comment on above: Performed By: #### L [id number], LAB15, LAB69 ####Digital Watch Assembler: VIVIAN PANTOJA ([id number])[facility] ([facility])[address] [place] [address] [place] CO2 [Moles/Vol] 29 mmol/L Normal 23-31 [facility] Comment on above: Performed By: #### L [id number], LAB15, LAB69 ####Digital Watch Assembler: VIVIAN PANTOJA ([id number])[facility] ([facility])[address] [place] [address] [place] Creatinine [Mass/Vol] 0.89 mg/dL Normal 0.57-1.11 [facility] Comment on above: Performed By: #### L [id number], LAB15, LAB69 ####Digital Watch Assembler: VIVIAN PANTOJA ([phone])[facility])[address] [place] [address] GLOMERULAR FILTRATION RATE ML/MIN/1.73 SQ M.PREDICTED 68.6 mL/min/1.73m*2 Normal >60.0 [facility] Comment on above: Result Comment: Calc ulation based on the Chronic Kidney Disease Epidemiology Collaboration (CKD-EPI) equation refit without adjustment for race Performed By: #### Manpreet AIKEN21, LAB15, LAB69 ####Digital Watch Assembler: VIVIAN PANTOJA ([phone])[facility])[address] [place] [address] Glucose [Mass/Vol] 116 mg/dL High 82-115 [facility] Comment on above: Performed By: #### Manpreet AIKEN21, LAB15, LAB69 ####Digital Watch Assembler: VIVIAN PANTOJA ([id number])[address] Potassium [Moles/Vol] 4.8 mmol/L Normal 3.5-5.1 [facility] Comment on above: Result Comment: [facility] potassium values may be up to 0.5 mmol/L lower than serum values. Performed By: #### Manpreet AIKEN21, LAB15, LAB69 ####Digital Watch Assembler: VIVIAN PANTOJA ([id number])[facility])[address] [place] [address] [place] Sodium [Moles/Vol] 145 mmol/L Normal 136-145 [facility] Comment on above: Performed By: #### Manpreet AIKEN21, LAB15, LAB69 ####Digital Watch Assembler: VIVIAN PANTOJA ([id number])[facility])[address] [place] [address] [place] Urea nitrogen [Mass/Vol] 19 mg/dL Normal 9-23 [facility] Comment on above: Performed By: #### Manpreet [id number], LAB15, LAB69 ####Digital Watch Assembler: VIVIAN PANTOJA ([phone])[facility])[address] [place] [address] [place] Anion gap [Moles/Vol] 7 mmol/L Normal 3-13 [facility] Comment on above: Performed By: #### L AB68, LAB15 ####Digital Watch Assembler: VIVIAN PANTOJA ([id number])[facility] [place] [address] Calcium [Mass/Vol] 8.3 mg/dL Low 8.8-10.0 [facility] Comment on above: Performed By: #### L AB68, LAB15 ####Digital Watch Assembler: VIVIAN PANTOJA ([id number])[facility] [place] [address] Chloride [Moles/Vol] 113 mmol/L High 98-107 [facility] Comment on above: Performed By: #### L AB68, LAB15 ####Digital Watch Assembler: VIVIAN PANTOJA ([id number])[facility] [place] [address] CO2 [Moles/Vol] 23 mmol/L Normal 23-31 [facility] Comment on above: Performed By: #### L ABAntoni, LAB15 ####Digital Watch Assembler: VIVIAN PANTOJA ([id number])[facility] [place] [address] Creatinine [Mass/Vol] 0.90 mg/dL Normal 0.57-1.11 [facility] Comment on above: Performed By: #### L AB68, LAB15 ####Digital Watch Assembler: VIVIAN PANTOJA ([id number])[facility] ([facility])[address] [place] [address] [place] GLOMERULAR FILTRATION RATE ML/MIN/1.73 SQ M.PREDICTED 67.6 mL/min/1.73m*2 Normal >60.0 [facility] Comment on above: Result Comment: Calc ulation based on the Chronic Kidney Disease Epidemiology Collaboration (CKD-EPI) equation refit without adjustment for race Performed By: #### L AB68, LAB15 ####Digital Watch Assembler: VIVIAN PANTOJA ([id number])[facility] [place] [address] [place] Glucose [Mass/Vol] 136 mg/dL High 82-115 [facility] Comment on above: Performed By: #### L AB68, LAB15 ####Digital Watch Assembler: VIVIAN PANTOJA ([phone])[facility])[address] [place] [address] Potassium [Moles/Vol] 5.5 mmol/L High 3.5-5.1 [facility] Comment on above: Result Comment: [facility] potassium values may be up to 0.5 mmol/L lower than serum values. Performed By: #### L AB68, LAB15 ####Digital Watch Assembler: VIVIAN PANTOJA ([phone])[facility])[address] [place] [address] Sodium [Moles/Vol] 143 mmol/L Normal 136-145 [facility] Comment on above: Performed By: #### L AB68, LAB15 ####Digital Watch Assembler: VIVIAN PANTOJA ([phone])[facility])[address] [place] [address] Urea nitrogen [Mass/Vol] 17 mg/dL Normal 9-23 [facility] Comment on above: Performed By: #### L AB68, LAB15 ####Digital Watch Assembler: VIVIAN PANTOJA ([phone])[facility])[address] [place] [address] BLOOD GAS, VENOUSon 05-03-19 25 Base excess Calc (BldV) [Moles/Vol] 1.7 mmol/L Normal -3.0-3.0 [facility] Comment on above: Performed By: #### L AB79 ####Digital Watch Assembler: VIVIAN PANTOJA ([phone])[facility])[address] [place] [address] CO2 [Moles/Vol] 31.6 mmol/L High 24.0-28.0 [facility] Comment on above: Performed By: #### L AB79 ####Digital Watch Assembler: VIVIAN PANTOJA ([phone])[facility])[address] [place] [address] HCO3 (Bld) [Moles/Vol] 29.6 mmol/L High 23.0-27.0 [facility] Comment on above: Performed By: #### L AB79 ####Digital Watch Assembler: VIVIAN PANTOJA ([id number])[facility])[address] [place] [address] Hemoglobin (Bld) [Mass/Vol] 10.0 g/dL Normal Screen only [facility] Comment on above: Performed By: #### L AB79 ####Digital Watch Assembler: VIVIAN PANTOJA ([id number])[facility])[address] [place] [address] OXYGEN (MM HG) IN VENOUS BLOOD 46.1 mm Hg Normal [facility] Comment on above: Performed By: #### L AB79 ####Digital Watch Assembler: VIVIAN PANTOJA ([id number])[facility])[address] [place] [address] OXYGEN SATURATION (%) IN VENOUS BLOOD 75.3 % Normal [facility] Comment on above: Performed By: #### L AB79 ####Digital Watch Assembler: VIVIAN PANTOJA ([phone])[facility])[address] [place] [address] [place] PCO2, CHA 65.9 mm Hg High 40.0-55.0 [facility] Comment on above: Performed By: #### L [id number] ####Digital Watch Assembler: VIVIAN PNATOJA ([phone])[facility])[address] [place] [address] PH VENOUS 7.270 Low 7.330-7.430 [facility] Comment on above: Performed By: #### L [id number] ####Digital Watch Assembler: VIVIAN PANTOJA ([phone])[facility])[address] [place] [address] SOURCE OF OXYGEN 40% Oxygen Normal [facility] Comment on above: Result Comment: LEOBARDO [...] heparinized syringe. Performed By: #### L [id number] ####Digital Watch Assembler: VIVIAN PANTOJA ([phone])[facility])[address] [place] [address] Base excess Calc (BldV) [Moles/Vol] 2.2 mmol/L Normal -3.0-3.0 [facility] Comment on above: Performed By: #### L [id number] ####Digital Watch Assembler: VIVIAN PANTOJA ([phone])[facility] ([facility])[address] [place] [address] CO2 [Moles/Vol] 32.3 mmol/L High 24.0-28.0 [facility] Comment on above: Performed By: #### L [id number] ####Digital Watch Assembler: VIVIAN PANTOJA ([id number])[facility])[address] [place] [address] HCO3 (Bld) [Moles/Vol] 30.2 mmol/L High 23.0-27.0 S [facility] Comment on above: Performed By: #### L [id number] ####Digital Watch Assembler: VIVIAN PANTOJA ([phone])[facility])[address] [place] [address] Hemoglobin (Bld) [Mass/Vol] 9.8 g/dL Normal Screen only [facility] Comment on above: Performed By: #### L [id number] ####Digital Watch Assembler: VIVIAN PANTOJA ([id number])[facility])[address] [place] [address] OXYGEN (MM HG) IN VENOUS BLOOD 51.7 mm Hg Normal [facility] Comment on above: Performed By: #### L [id number] ####Digital Watch Assembler: VIVIAN PANTOJA ([id number])[facility])[address] [place] [address] OXYGEN SATURATION (%) IN VENOUS BLOOD 80.3 % Normal [facility] Comment on above: Performed By: #### L [id number] ####Digital Watch Assembler: VIVIAN [id number])[facility] [place] [address] PCO2, CHA 67.7 mm Hg High 40.0-55.0 [facility] Comment on above: Performed By: #### L [id number] ####Digital Watch Assembler: VIVIAN PANTOJA ([phone])[facility] ([facility])[address] [place] [address] PH VENOUS 7.267 Low 7.330-7.430 [facility] Comment on above: Performed By: #### L [id number] ####Digital Watch Assembler: VIVIAN PANTOJA ([phone])[facility] ([facility])[address] [place] [address] SOURCE OF OXYGEN ETT Normal [facility] Comment on above: Result Comment: 40%O RDER COMMENTS:Assessment of oxygenation is best done with an arterial blood gas determination. Reference ranges for pO2, bicarbonate, and base excess are for mixed venous blood. Specimens drawn from a peripheral vein will often have higher values. Performed By: #### L [id number] ####Digital Watch Assembler: VIVIAN PANTOJA ([id number])[facility] [place] [address] Basic metabolic 1998 panelon 05-03-2024 Anion gap [Moles/Vol] 5 mmol/L 3 - 13 mmol/L [facility] Calcium [Mass/Vol] 8.6 mg/dL Low 8.8 - 10. 0 mg/dL [facility] Chloride [Moles/Vol] 111 mmol/L High 98 - 10 7 mmol/L [facility] CO2 [Moles/Vol] 29 mmol/L 23 - 31 mmol/L [facility] Creatinine [Mass/Vol] 0.89 mg/dL 0.57 - 1.11 mg/dL [facility] GFR/1.73 sq M.predicted (S/P/Bld) [Vol rate/Area] 68.6 mL/min - PINF [facility] Glucose [Mass/Vol] 116 mg/dL High 82 - 115 mg/dL [facility] Interpretation and review of laboratory results Abnormal [facility] Potassium [Moles/Vol] 4.8 mmol/L 3.5 - 5.1 mmol/L [facility] Sodium [Moles/Vol] 145 mmol/L 136 - 145 mmol/L [facility] Urea nitrogen [Mass/Vol] 19 mg/dL 9 - 23 mg/dL [facility] Basic metabolic 1998 panelOr yocatsa By: Kenan Garcia on 05-03-2024 Anion gap [Moles/Vol] 7 mmol/L 3 - 13 mmol/L [facility] Calcium [Mass/Vol] 8.3 mg/dL Low 8.8 - 10. 0 mg/dL [facility] Chloride [Moles/Vol] 113 mmol/L High 98 - 10 7 mmol/L [facility] CO2 [Moles/Vol] 23 mmol/L 23 - 31 mmol/L [facility] Creatinine [Mass/Vol] 0.9 mg/dL 0.57 - 1.11 mg/dL [facility] GFR/1.73 sq M.predicted (S/P/Bld) [Vol rate/Area] 67.6 mL/min - PINF [facility] Glucose [Mass/Vol] 136 mg/dL High 82 - 115 mg/dL [facility] Interpretation and review of laboratory results Abnormal [facility] Potassium [Moles/Vol] 5.5 mmol/L High 3.5 - 5.1 mmol/L [facility] Sodium [Moles/Vol] 143 mmol/L 136 - 145 mmol/L [facility] Urea nitrogen [Mass/Vol] 17 mg/dL 9 - 23 mg/dL [facility] CBC (HEMOGRAM)on 05-03-2024 Erythrocyte distribution width (RBC) [Ratio] 15.1 % High 11.5-15.0 [facility] Comment on above: Performed By: #### L [id number] ####Digital Watch Assembler: VIVIAN PANTOJA ([id number])[address] Hematocrit (Bld) [Volume fraction] 28.0 % Low 35.0-47.0 [facility] Comment on above: Performed By: #### L [id number] ####Digital Watch Assembler: VIVIAN PANTOJA ([phone])[facility])[address] [place] [address] Hemoglobin (Bld) [Mass/Vol] 8.6 g/dL Low 11.7-16.0 [facility] Comment on above: Performed By: #### L [id number] ####Digital Watch Assembler: VIVIAN PANTOJA ([phone])[facility])[address] [place] [address] IPF 14 Normal [facility] Comment on above: Performed By: #### L [id number] ####Digital Watch Assembler: VIVIAN PANTOJA ([phone])[facility])[address] [place] [address] MCH (RBC) [Entitic mass] 28.2 pg Normal 26.0-34.0 [facility] Comment on above: Performed By: #### L [id number] ####Digital Watch Assembler: VIVIAN PANTOJA ([id number])[facility])[address] [place] [address] MCHC 30.7 % Normal 30.5-36.0 [facility] Comment on above: Performed By: #### L [id number] ####Digital Watch Assembler: VIVIAN PANTOJA ([phone])[facility] ([facility])[address] [place] [address] MCV (RBC) [Entitic vol] 91.8 fL Normal 77.0-99.0 [facility] Comment on above: Performed By: #### L [id number] ####Digital Watch Assembler: VIVIAN PANTOJA ([phone])[facility])[address] [place] [address] MPV Normal [facility] Comment on above: Result Comment: Unab le to calculate. Performed By: #### L [id number] ####Digital Watch Assembler: VIVIAN PANTOJA ([id number])[facility] ([facility])[address] [place] [address] Platelets (Bld) [#/Vol] 37 10*3/uL Low 140-440 [facility] Comment on above: Performed By: #### L [id number] ####Digital Watch Assembler: VIVIAN PANTOJA ([id number])[facility])[address] [place] [address] RBC (Bld) [#/Vol] 3.05 10*6/uL Low 3.80-5.20 [facility] Comment on above: Performed By: #### L [id number] ####Digital Watch Assembler: VIVIAN PANTOJA ([phone])[facility] ([facility])[address] [place] [address] WBC (Bld) [#/Vol] 7.3 10*3/uL Normal 3.6-10.7 [facility] Comment on above: Performed By: #### L [id number] ####Digital Watch Assembler: VIVIAN PANTOJA ([id number])[facility] ([facility])[address] [place] [address] CBC W Auto Differential pane l (Bld)Ordered By: Jacqui Gutierrez on 05-03-2024 Basophils (Bld) [#/Vol] 0 10*3/uL 0.0 - 0.2 10*3/uL [facility] Basophils/100 WBC (Bld) 0.1 % 0.0 - 2.0 % [facility] Eosinophils (Bld) [#/Vol] 0 10*3/uL 0.0 - 0.5 10*3/uL [facility] Eosinophils/100 WBC (Bld) 0 % 0.0 - 6.0 % [facility] Erythrocyte distribution width (RBC) [Ratio] 15.1 % High 11.5 - 15.0 % [facility] Hematocrit (Bld) [Volume fraction] 32.1 % Low 35.0 - 47.0 % [facility] Hemoglobin (Bld) [Mass/Vol] 9.4 g/dL Low 11.7 - 16.0 g/dL [facility] Immature granulocytes (Bld) [#/Vol] 0.1 10*3/uL High NINF - 0.1 10*3/uL [facility] Immature granulocytes/100 WBC (Bld) 1 % 0.0 - 2.0 % [facility] Interpretation and review of laboratory results Abnormal [facility] IPF 15 [facility] Lymphocytes (Bld) [#/Vol] 0.5 10*3/uL Low 1.0 - 4.3 10*3/uL [facility] Lymphocytes/100 WBC (Bld) 6.7 % Low 15.0 - 45.0 % [facility] MCH (RBC) [Entitic mass] 27.9 pg 26.0 - 34.0 pg [facility] MCHC (RBC) [Mass/Vol] 29.3 % Low 30.5 - 36.0 % [facility] MCV (RBC) [Entitic vol] 95.3 fL 77.0 - 99.0 fL [facility] Monocytes (Bld) [#/Vol] 1.3 10*3/uL High 0.0 - 0.9 10*3/uL [facility] Monocytes/100 WBC (Bld) 18.2 % High 5.0 - 13.0 % [facility] Neutrophils (Bld) [#/Vol] 5.4 10*3/uL 1.8 - 7.5 10*3/uL [facility] Neutrophils/100 WBC (Bld) 74 % 38.0 - 82.0 % [facility] Nucleated RBC/100 WBC (Bld) [Ratio] 0 % [facility] Platelet mean volume (Bld) [Entitic vol] 13.9 fL High 9.0 - 12.7 fL [facility] Platelets (Bld) [#/Vol] 44 10*3/uL Low 140 - 440 10*3/uL [facility] RBC (Bld) [#/Vol] 3.37 10*6/uL Low 3.80 - 5.2 0 10*6/uL [facility] WBC (Bld) [#/Vol] 7.3 10*3/uL 3.6 - 10.7 10*3/uL [facility] CBC WITH AUTO DIFFERENTIALon 05-03-2024 Basophils (Bld) [#/Vol] 0.0 10*3/uL Normal 0.0-0.2 [facility] Comment on above: Performed By: #### L [id number] ####Digital Watch Assembler: VIVIAN PANTOJA ([id number])[facility] ([address] Basophils/100 WBC (Bld) 0.1 % Normal 0.0-2.0 [facility] Comment on above: Performed By: #### L [id number] ####Digital Watch Assembler: VIVIAN [id number])[address] Eosinophils (Bld) [#/Vol] 0.0 10*3/uL Normal 0.0-0.5 [facility] Comment on above: Performed By: #### L [id number] ####Digital Watch Assembler: VIVIAN PANTOJA ([phone])[facility])[address] [place] [address] Eosinophils/100 WBC (Bld) 0.0 % Normal 0.0-6.0 [facility] Comment on above: Performed By: #### L [id number] ####Digital Watch Assembler: VIVIAN PANTOJA ([id number])[address] Erythrocyte distribution width (RBC) [Ratio] 15.1 % High 11.5-15.0 [facility] Comment on above: Performed By: #### L [id number] ####Digital Watch Assembler: VIVIAN PANTOJA ([id number])[address] Hematocrit (Bld) [Volume fraction] 32.1 % Low 35.0-47.0 [facility] Comment on above: Performed By: #### L [id number] ####Digital Watch Assembler: VIVIAN PANTOJA ([id number])[address] Hemoglobin (Bld) [Mass/Vol] 9.4 g/dL Low 11.7-16.0 [facility] Comment on above: Performed By: #### L [id number] ####Digital Watch Assembler: VIVIAN PANTOJA ([id number])[facility])[address] [place] [address] IMMATURE GRANS % 1.0 % Normal 0.0-2.0 [facility] Comment on above: Performed By: #### L [id number] ####Digital Watch Assembler: VIVIAN PANTOJA ([id number])[address] IMMATURE GRANS ABSOLUTE 0.1 10*3/uL High <0.1 [facility] Comment on above: Performed By: #### L [id number] ####Digital Watch Assembler: VIVIAN PANTOJA ([id number])[facility])[address] [place] [address] IPF 15 Normal [facility] Comment on above: Performed By: #### L [id number] ####Digital Watch Assembler: VIVIAN PANTOJA ([id number])[facility])[address] [place] [address] Lymphocytes (Bld) [#/Vol] 0.5 10*3/uL Low 1.0-4.3 [facility] Comment on above: Performed By: #### L [id number] ####Digital Watch Assembler: VIVIAN PANTOJA ([id number])[address] Lymphocytes/100 WBC (Bld) 6.7 % Low 15.0-45.0 [facility] Comment on above: Performed By: #### L [id number] ####Digital Watch Assembler: VIVIAN PANTOJA ([phone])[address] MCH (RBC) [Entitic mass] 27.9 pg Normal 26.0-34.0 [facility] Comment on above: Performed By: #### L [id number] ####Digital Watch Assembler: VIVIAN PANTOJA ([id number])[address] MCHC 29.3 % Low 30.5-36.0 [facility] Comment on above: Performed By: #### L [id number] ####Digital Watch Assembler: VIVIAN PANTOJA ([id number])[address] MCV (RBC) [Entitic vol] 95.3 fL Normal 77.0-99.0 [facility] Comment on above: Performed By: #### L [id number] ####Digital Watch Assembler: VIVIAN PANTOJA ([id number])[facility] ([facility])[address] [place] [address] Monocytes (Bld) [#/Vol] 1.3 10*3/uL High 0.0-0.9 [facility] Comment on above: Performed By: #### L [id number] ####Digital Watch Assembler: VIVIAN PANTOJA ([id number])[facility] ([facility])[address] [place] [address] Monocytes/100 WBC (Bld) 18.2 % High 5.0-13.0 [facility] Comment on above: Performed By: #### L [id number] ####Digital Watch Assembler: VIVIAN PANTOJA ([phone])[facility])[address] [place] [address] NEUTROPHILS ABSOLUTE 5.4 10*3/uL Normal 1.8-7.5 [facility] Comment on above: Performed By: #### L [id number] ####Digital Watch Assembler: VIVIAN PANTOJA ([id number])[facility] ([facility])[address] [place] [address] Neutrophils/100 WBC (Bld) 74.0 % Normal 38.0-82.0 [facility] Comment on above: Performed By: #### L [id number] ####Digital Watch Assembler: VIVIAN PANTOJA ([phone])[facility])[address] [place] [address] NRBC 0.0 /100 WBCs Normal 0.0-2.0 [facility] Comment on above: Performed By: #### L [id number] ####Digital Watch Assembler: VIVIAN PANTOJA ([id number])[facility] ([facility])[address] [place] [address] Platelet mean volume (Bld) [Entitic vol] 13.9 fL High 9.0-12.7 [facility] Comment on above: Performed By: #### L [id number] ####Digital Watch Assembler: VIVIAN PANTOJA ([id number])[facility] ([facility])[address] [place] [address] [place] Platelets (Bld) [#/Vol] 44 10*3/uL Low 140-440 [facility] Comment on above: Performed By: #### L [id number] ####Digital Watch Assembler: VIVIAN PANTOJA ([id number])[facility])[address] [place] [address] RBC (Bld) [#/Vol] 3.37 10*6/uL Low 3.80-5.20 [facility] Comment on above: Performed By: #### L [id number] ####Digital Watch Assembler: VIVIAN PANTOJA ([id number])[facility] ([facility])[address] [place] [address] WBC (Bld) [#/Vol] 7.3 10*3/uL Normal 3.6-10.7 [facility] Comment on above: Performed By: #### L [id number] ####Digital Watch Assembler: VIVIAN PANTOJA ([id number])[facility] ([facility])[address] [place] [address] CBC panel Auto (Bld)on 05-03 Erythrocyte distribution width (RBC) [Ratio] 15.1 % High 11.5 - 15.0 % [facility] Hematocrit (Bld) [Volume fraction] 28 % Low 35.0 - 47.0 % [facility] Hemoglobin (Bld) [Mass/Vol] 8.6 g/dL Low 11.7 - 16.0 g/dL [facility] Interpretation and review of laboratory results Abnormal [facility] IPF 14 [facility] MCH (RBC) [Entitic mass] 28.2 pg 26.0 - 34.0 pg [facility] MCHC (RBC) [Mass/Vol] 30.7 % 30.5 - 36.0 % [facility] MCV (RBC) [Entitic vol] 91.8 fL 77.0 - 99.0 fL [facility] Platelet mean volume (Bld) [Entitic vol] [facility] Platelets (Bld) [#/Vol] 37 10*3/uL Low 140 - 440 10*3/uL [facility] RBC (Bld) [#/Vol] 3.05 10*6/uL Low 3.80 - 5.2 0 10*6/uL [facility] WBC (Bld) [#/Vol] 7.3 10*3/uL 3.6 - 10.7 10*3/uL [facility] ETHYL GLUCURONIDE SCREEN, UR INEon 05-03-2024 ETHYL GLUCURONIDE, URINE Negative Normal Negative [facility] Comment on above: Result Comment: LEOBARDO [...] been determined by the clinical laboratories of [facility]. Performed By: #### L [id number] ####Digital Watch Assembler: VIVIAN PANTOJA ([phone])[facility])[address] [place] [address] FERRITINon 05-03-2024 Ferritin [Mass/Vol] 415 ng/mL High 5-204 [facility] Comment on above: Result Comment: LEOBARDO Gill COMMENTS:Ferritin levels below 10 ng/mL have been reported as indicative of iron deficiency anemia. Performed By: #### L [id number], LAB15 ####Digital Watch Assembler: VIVIAN PANTOJA ([phone])[facility])[address] [place] [address] FOLATEon 05-03-2024 FOLATE RESULT 3.7 ng/mL Low 7.0-31.4 [facility] Comment on above: Performed By: #### L [id number], LAB15, LAB69 ####Digital Watch Assembler: VIVIAN PANTOJA ([phone])[facility])[address] [place] [address] [place] Ferritin [Mass/Vol]on 2024 Interpretation and review of laboratory results Abnormal [facility] Folate [Mass/Vol]on 05-03-19 Interpretation and review of laboratory results Abnormal [facility] HCV Ab IA Qlon 05-03-2024 [facility] HEPATITIS C ANTIBODYon 05-03 HCV Ab IA Ql Not detected Normal Not Detected [facility] Comment on above: Result Comment: Nancy ents with DETECTED Hepatitis C Ab results should have a new specimen submitted for supplemental testing with a Hepatitis C Quantitative RNA assay (viral load), if clinically indicated. Performed By: #### L [id number] ####Digital Watch Assembler: VIVIAN PANTOJA ([phone])[facility])[address] [place] [address] IRON AND TIBCon 05-03-2024 IRON BINDING CAPACITY 157 ug/dL Low 250-450 [facility] Comment on above: Performed By: #### L [id number] ####Digital Watch Assembler: VIVIAN PANTOJA ([phone])[facility])[address] [place] [address] IRON SATURATION 16.6 % Low 20.0-50.0 [facility] Comment on above: Performed By: #### L [id number] ####Digital Watch Assembler: VIVIAN PANTOJA ([phone])[facility])[address] [place] [address] IRON, TOTAL 26 ug/dL Low 50-170 [facility] Comment on above: Result Comment: TCSi gnificant interference from hemolysis. Result integrity compromised. Interpret with caution. Performed By: #### L [id number] ####Digital Watch Assembler: VIVIAN PANTOJA ([phone])[facility])[address] [place] [address] Iron and Iron binding capaci ty panelon 05-03-2024 Interpretation and review of laboratory results Abnormal [facility] Iron [Mass/Vol] 26 ug/dL Low 50 - 170 ug/dL [facility] Iron binding capacity [Mass/Vol] 157 ug/dL Low 250 - 450 ug/dL [facility] Iron saturation [Mass fraction] 16.6 % Low 20.0 - 50.0 % [facility] LACTIC ACID WITH REFLEXon Lactate [Moles/Vol] 1.0 mmol/L Normal 0.5-2.2 [facility] Comment on above: Performed By: #### L [id number] ####Digital Watch Assembler: VIVIAN PANTOJA ([id number])[facility] ([facility])[address] [place] [address] Laboratory - Chemistry and C hemistry - challengeon 05-03-2024 Folate [Mass/Vol] 3.7 ng/mL Low 7.0 - 31.4 ng/mL [facility] Procalcitonin [Mass/Vol] 0.16 ng/mL High NINF - 0.07 ng/mL [facility] Ferritin [Mass/Vol] 415 ng/mL High 5 - 204 ng/mL [facility] Lactate [Moles/Vol] 1 mmol/L 0.5 - 2. 2 mmol/L [facility] Base excess Calc (BldV) [Moles/Vol] 2.2 mmol/L -3.0 - 3.0 mmol/L [facility] CO2 (BldV) [Partial pressure] 67.7 mm[Hg] High [facility] CO2 [Moles/Vol] 32.3 mmol/L High 24.0 - 28.0 mmol/L [facility] HCO3 (Bld) [Moles/Vol] 30.2 mmol/L High 23.0 - 27.0 mmol/L [facility] Oxygen (BldV) [Partial pressure] 51.7 mm[Hg] mm Hg [facility] pH (BldV) 7.267 [pH] Low 7.330 - 7.430 [facility] Laboratory - Chemistry and C hemistry - challengeOrdered By: Obey Rodríguez on 05-03-2024 Base excess Calc (BldV) [Moles/Vol] 1.7 mmol/L -3.0 - 3.0 mmol/L [facility] CO2 (BldV) [Partial pressure] 65.9 mm[Hg] High [facility] CO2 [Moles/Vol] 31.6 mmol/L High 24.0 - 28.0 mmol/L [facility] HCO3 (Bld) [Moles/Vol] 29.6 mmol/L High 23.0 - 27.0 mmol/L [facility] Oxygen (BldV) [Partial pressure] 46.1 mm[Hg] mm Hg [facility] pH (BldV) 7.27 [pH] Low 7.330 - 7.430 [facility] Laboratory - Hematology and Cell countsOrdered By: Obey Rodríguez on 05-03-2024 Hemoglobin (Bld) [Mass/Vol] 10 g/dL Screen only [facility] Laboratory - Hematology and Cell countson 05-03-2024 Hemoglobin (Bld) [Mass/Vol] 9.8 g/dL Screen only [facility] Laboratory - Microbiology an d Antimicrobial susceptibilityon 05-03-2024 HCV Ab IA Ql Not detected Not Detected [facility] MRSA BY PCRon 05-03-2024 MRSA BY PCR Normal [facility] Comment on above: Performed By: #### L [id number] ####Digital Watch Assembler: VIVIAN PANTOJA ([id number])[facility] ([facility])[address] [place] [address] MRSA DNA STEPHANIE+probe Ql (Nose) on 05-03-2024 Interpretation and review of laboratory results Abnormal [facility] mecA gene Not detected Not Detected [facility] Staphylococcus aureus Detected Abnormal Not Detected [facility] No Panel InformationOrdered By: Geraldine Lopez on 05-03-2024 ETHYL GLUCURONIDE, URINE Negative Negative [facility] No Panel Informationon 05-03 Interpretation and review of laboratory results Normal [facility] Extra Tube Hold for add-ons. [facility] Interpretation and review of laboratory results Normal [facility] Interpretation and review of laboratory results Abnormal [facility] Source Of Oxygen ETT [facility] No Panel InformationOrdered By: Obey Rodríguez on 05-03-2024 Interpretation and review of laboratory results Abnormal [facility] Source Of Oxygen 40% Oxygen [facility] No Panel InformationOrdered By: Vipul Phoenix on 05-03-2024 Legionella pneumophila Ag Not detected Not Detected [facility] Streptococcus pneumoniae Ag Not detected Not Detected [facility] PROCALCITONIN TESTon 025 PROCALCITONIN 0.16 ng/mL High <0.07 [facility] Comment on above: Result Comment: LEOBARDO Gill COMMENTS:PCT <0.50 = Low risk of severe sepsis and/or septic shock.PCT >2.00 = High risk of severe sepsis and/or septic shock. Performed By: #### L [id number], LAB15, LAB69 ####Digital Watch Assembler: VIVIAN PANTOJA ([phone])[facility] ([facility])[address] [place] [address] Procalcitonin [Mass/Vol]on 0 05-03-2024 Interpretation and review of laboratory results Abnormal [facility] Progress Noteon 05-03-2024 Progress Note Normal [facility] Progress Note Vancomycin therapy h as been discontinued by Dr. Alin José on 06/10/34. Thank you for the consult. Pharmacy signing off for vancomycin dosing. Estephania Clayton [facility], Date: 05/03/24 Time: 11:03 AM Normal [facility] Progress Note Normal [facility] [facility] Progress Note Normal [facility] Progress Note Normal [facility] Progress Note Normal [facility] Respiratory pathogens DNA an d RNA panel STEPHANIE+non-probe (Nph)on 05-03-2024 Adenovirus Not detected Not Detected [facility] B. pertussis DNA STEPHANIE+probe Ql (Unsp spec) Not detected Not Detected [facility] Bordetella parapertussis Not detected Not Detected [facility] Chlamydia pneumoniae Not detected Not Detected [facility] Coronavirus 229E Not detected Not Detected [facility] Coronavirus HKU1 Not detected Not Detected [facility] Coronavirus NL63 Not detected Not Detected [facility] Coronavirus OC43 Not detected Not Detected [facility] FLUAV RNA STEPHANIE+non-probe Ql (Nph) Detected Abnormal Not Detected [facility] FLUBV RNA STEPHANIE+non-probe Ql (Nph) Not detected Not Detected [facility] Human Metapneumovirus Not detected Not Detected [facility] Human Rhinovirus/Enterovirus Not detected Not Detected [facility] Interpretation and review of laboratory results Abnormal [facility] Mycoplasma pneumoniae Not detected Not Detected [facility] Parainfluenza 1 Not detected Not Detected [facility] Parainfluenza 2 Not detected Not Detected [facility] Parainfluenza 3 Not detected Not Detected [facility] Parainfluenza 4 Not detected Not Detected [facility] Respiratory Syncytial Virus Not detected Not Detected [facility] SARS-CoV-2 (COVID-19) RNA STEPHANIE+non-probe Ql (Nph) Not detected Not Detected [facility] Vital signsOrdered By: Alfredo Rodríguez on 05-03-2024 Oxygen saturation in Venous blood 75.3 % [facility] Vital signson 05-03-2024 Oxygen saturation in Venous blood 80.3 % [facility] 30on 05-02-2024 30 Normal [facility] 36on 05-02-2024 36 Currently admitted Normal [facility] BASIC METABOLIC PANELon 04-15 Anion gap [Moles/Vol] 8 mmol/L Normal 3-13 [facility] Comment on above: Performed By: #### L AB15 ####Digital Watch Assembler: VIVIAN PANTOJA ([phone])[facility])[address] [place] [address] Calcium [Mass/Vol] 8.7 mg/dL Low 8.8-10.0 [facility] Comment on above: Performed By: #### L AB15 ####Digital Watch Assembler: VIVIAN PANTOJA ([id number])[facility] ([facility])[address] [place] [address] Chloride [Moles/Vol] 113 mmol/L High 98-107 [facility] Comment on above: Performed By: #### L AB15 ####Digital Watch Assembler: VIVIAN PANTOJA ([id number])[facility] ([facility])[address] [place] [address] CO2 [Moles/Vol] 25 mmol/L Normal 23-31 [facility] Comment on above: Performed By: #### L AB15 ####Digital Watch Assembler: VIVIAN PANTOJA ([phone])[facility])[address] [place] [address] Creatinine [Mass/Vol] 0.69 mg/dL Normal 0.57-1.11 [facility] Comment on above: Performed By: #### L AB15 ####Digital Watch Assembler: VIVIAN PANTOJA ([phone])[facility])[address] [place] [address] GLOMERULAR FILTRATION RATE ML/MIN/1.73 SQ M.PREDICTED >90.0 Normal >60.0 [facility] Comment on above: Result Comment: Calc ulation based on the Chronic Kidney Disease Epidemiology Collaboration (CKD-EPI) equation refit without adjustment for race Performed By: #### L AB15 ####Digital Watch Assembler: VIVIAN PANTOJA ([phone])[facility] ([facility])[address] [place] [address] Glucose [Mass/Vol] 108 mg/dL Normal 82-115 [facility] Comment on above: Performed By: #### L AB15 ####Digital Watch Assembler: VIVIAN PANTOJA ([id number])[facility])[address] [place] [address] Potassium [Moles/Vol] 4.2 mmol/L Normal 3.5-5.1 [facility] Comment on above: Result Comment: [facility] potassium values may be up to 0.5 mmol/L lower than serum values. Performed By: #### L AB15 ####Digital Watch Assembler: VIVIAN PANTOJA ([id number])[facility] ([facility])[address] [place] [address] Sodium [Moles/Vol] 146 mmol/L High 136-145 [facility] Comment on above: Performed By: #### L AB15 ####Digital Watch Assembler: VIVIAN PANTOJA ([phone])[facility] ([facility])[address] [place] [address] Urea nitrogen [Mass/Vol] 13 mg/dL Normal 9-23 [facility] Comment on above: Performed By: #### L AB15 ####Digital Watch Assembler: VIVIAN PANTOJA ([id number])[facility])[address] [place] [address] BLOOD GAS ARTERIALon 025 Base excess Calc (Bld) [Moles/Vol] -1.0000 mmol/L Normal -3.0-3.0 [facility] Comment on above: Performed By: #### L AB76 ####Digital Watch Assembler: VIVIAN PANTOJA ([id number])[facility])[address] [place] [address] CO2 [Moles/Vol] 30.3 mmol/L High 23.0-27.0 [facility] Comment on above: Performed By: #### L AB76 ####Digital Watch Assembler: VIVIAN PANTOJA ([id number])[facility] [place] [address] HCO3 (Bld) [Moles/Vol] 28.1 mmol/L High 21.0-25.0 S [facility] Comment on above: Performed By: #### L AB76 ####Digital Watch Assembler: VIVIAN PANTOJA ([id number])[facility] ([facility])[address] [place] [address] Hemoglobin (Bld) [Mass/Vol] 11.4 g/dL Normal Screen only [facility] Comment on above: Performed By: #### L AB76 ####Digital Watch Assembler: VIVIAN PANTOJA ([phone])[facility])[address] [place] [address] OXYGEN SATURATION (%) IN ARTERIAL BLOOD 95.8 % Normal 95.0-100.0 [facility] Comment on above: Performed By: #### L AB76 ####Digital Watch Assembler: VIVIAN PANTOJA ([id number])[facility] ([facility])[address] [place] [address] PCO2 ARTERIAL 71.3 mm Hg High >35.0-<45.0 [facility] Comment on above: Performed By: #### L AB76 ####Digital Watch Assembler: VIVIAN PANTOJA ([id number])[facility])[address] [place] [address] PH ARTERIAL 7.213 Low 7.350-7.450 [facility] Comment on above: Performed By: #### L AB76 ####Digital Watch Assembler: VIVIAN PANTOJA ([id number])[facility] ([facility])[address] [place] [address] PO2 ARTERIAL 100.6 mm Hg High 80.0-100.0 [facility] Comment on above: Performed By: #### L AB76 ####Digital Watch Assembler: VIVIAN PANTOJA ([id number])[facility])[address] [place] [address] SOURCE OF OXYGEN Nasal cannula Normal [facility] Comment on above: Result Comment: 4 Performed By: #### L AB76 ####Digital Watch Assembler: VIVIAN PANTOJA ([id number])[facility])[address] [place] [address] BLOOD GAS, VENOUSon 05-02-19 25 Base excess Calc (BldV) [Moles/Vol] -2.0000 mmol/L Normal -3.0-3.0 [facility] Comment on above: Performed By: #### L AB79 ####Digital Watch Assembler: VIVIAN PANTOJA ([id number])[facility] ([facility])[address] [place] [address] CO2 [Moles/Vol] 29.0 mmol/L High 24.0-28.0 [facility] Comment on above: Performed By: #### L AB79 ####Digital Watch Assembler: VIVIAN PANTOJA ([id number])[facility])[address] [place] [address] HCO3 (Bld) [Moles/Vol] 26.8 mmol/L Normal 23.0-27.0 [facility] Comment on above: Performed By: #### L AB79 ####Digital Watch Assembler: VIVIAN PANTOJA ([id number])[facility])[address] [place] [address] Hemoglobin (Bld) [Mass/Vol] 9.4 g/dL Normal Screen only [facility] Comment on above: Performed By: #### L AB79 ####Digital Watch Assembler: VIVIAN PANTOJA ([id number])[facility])[address] [place] [address] OXYGEN (MM HG) IN VENOUS BLOOD 42.8 mm Hg Normal [facility] Comment on above: Performed By: #### L AB79 ####Digital Watch Assembler: VIVIAN PANTOJA ([id number])[facility])[address] [place] [address] OXYGEN SATURATION (%) IN VENOUS BLOOD 66.4 % Normal [facility] Comment on above: Performed By: #### L AB79 ####Digital Watch Assembler: VIVIAN PANTOJA ([id number])[facility] ([facility])[address] [place] [address] PCO2, CHA 70.8 mm Hg High 40.0-55.0 [facility] Comment on above: Performed By: #### L AB79 ####Digital Watch Assembler: VIVIAN PANTOJA ([id number])[facility] [place] [address] PH VENOUS 7.196 Low 7.330-7.430 [facility] Comment on above: Performed By: #### L AB79 ####Digital Watch Assembler: VIVIAN PANTOJA ([id number])[facility] [place] [address] SOURCE OF OXYGEN Normal [facility] Comment on above: Result Comment: 80%O RDER COMMENTS:Assessment of oxygenation is best done with an arterial blood gas determination. Reference ranges for pO2, bicarbonate, and base excess are for mixed venous blood. Specimens drawn from a peripheral vein will often have higher values. Performed By: #### L AB79 ####Digital Watch Assembler: VIVIAN PANTOJA ([id number])[facility] [place] [address] Basic metabolic 1998 panelon 05-02-2024 Anion gap [Moles/Vol] 8 mmol/L 3 - 13 mmol/L [facility] Calcium [Mass/Vol] 8.7 mg/dL Low 8.8 - 10. 0 mg/dL [facility] Chloride [Moles/Vol] 113 mmol/L High 98 - 10 7 mmol/L [facility] CO2 [Moles/Vol] 25 mmol/L 23 - 31 mmol/L [facility] Creatinine [Mass/Vol] 0.69 mg/dL 0.57 - 1.11 mg/dL [facility] GFR/1.73 sq M.predicted (S/P/Bld) [Vol rate/Area] - PINF [facility] Glucose [Mass/Vol] 108 mg/dL 82 - 115 mg/dL [facility] Interpretation and review of laboratory results Abnormal [facility] Potassium [Moles/Vol] 4.2 mmol/L 3.5 - 5.1 mmol/L [facility] Sodium [Moles/Vol] 146 mmol/L High 136 - 145 mmol/L [facility] Urea nitrogen [Mass/Vol] 13 mg/dL 9 - 23 mg/dL [facility] CBC (HEMOGRAM)on 05-02-2024 Erythrocyte distribution width (RBC) [Ratio] 15.3 % High 11.5-15.0 [facility] Comment on above: Performed By: #### L [id number] ####Digital Watch Assembler: VIVIAN PANTOJA ([id number])[facility])[address] [place] [address] Hematocrit (Bld) [Volume fraction] 31.1 % Low 35.0-47.0 [facility] Comment on above: Performed By: #### L AB294 ####Digital Watch Assembler: VIVIAN PANTOJA ([id number])[facility])[address] [place] [address] Hemoglobin (Bld) [Mass/Vol] 9.4 g/dL Low 11.7-16.0 [facility] Comment on above: Performed By: #### L AB294 ####Digital Watch Assembler: VIVIAN PANTOJA ([id number])[place] [address] [place] IPF 15 Normal [facility] Comment on above: Performed By: #### L AB294 ####Digital Watch Assembler: VIVIAN PANTOJA ([id number])[address] MCH (RBC) [Entitic mass] 27.8 pg Normal 26.0-34.0 [facility] Comment on above: Performed By: #### L AB294 ####Digital Watch Assembler: VIVIAN PANTOJA ([id number])[facility])[address] [place] [address] MCHC 30.2 % Low 30.5-36.0 [facility] Comment on above: Performed By: #### L AB294 ####Digital Watch Assembler: VIVIAN PANTOJA ([id number])[facility])[address] [place] [address] [place] MCV (RBC) [Entitic vol] 92.0 fL Normal 77.0-99.0 [facility] Comment on above: Performed By: #### L AB294 ####Digital Watch Assembler: VIVIAN PANTOJA ([id number])[facility])[address] [place] [address] Platelet mean volume (Bld) [Entitic vol] 13.4 fL High 9.0-12.7 [facility] Comment on above: Performed By: #### L AB294 ####Digital Watch Assembler: VIVIAN PANTOJA ([id number])[facility] ([facility])[address] [place] [address] [place] Platelets (Bld) [#/Vol] 43 10*3/uL Low 140-440 [facility] Comment on above: Performed By: #### L AB294 ####Digital Watch Assembler: VIVIAN PANTOJA ([id number])[facility] ([facility])[address] [place] [address] RBC (Bld) [#/Vol] 3.38 10*6/uL Low 3.80-5.20 [facility] Comment on above: Performed By: #### L AB294 ####Digital Watch Assembler: VIVIAN PANTOJA ([id number])[facility] ([facility])[address] [place] [address] WBC (Bld) [#/Vol] 6.5 10*3/uL Normal 3.6-10.7 [facility] Comment on above: Performed By: #### L AB294 ####Digital Watch Assembler: VIVIAN PANTOJA ([id number])[facility] ([facility])[address] [place] [address] CBC panel Auto (Bld)on 05-02 Erythrocyte distribution width (RBC) [Ratio] 15.3 % High 11.5 - 15.0 % [facility] Hematocrit (Bld) [Volume fraction] 31.1 % Low 35.0 - 47.0 % [facility] Hemoglobin (Bld) [Mass/Vol] 9.4 g/dL Low 11.7 - 16.0 g/dL [facility] Interpretation and review of laboratory results Abnormal [facility] IPF 15 [facility] MCH (RBC) [Entitic mass] 27.8 pg 26.0 - 34.0 pg [facility] MCHC (RBC) [Mass/Vol] 30.2 % Low 30.5 - 36.0 % [facility] MCV (RBC) [Entitic vol] 92 fL 77.0 - 99.0 fL [facility] Platelet mean volume (Bld) [Entitic vol] 13.4 fL High 9.0 - 12.7 fL [facility] Platelets (Bld) [#/Vol] 43 10*3/uL Low 140 - 440 10*3/uL [facility] RBC (Bld) [#/Vol] 3.38 10*6/uL Low 3.80 - 5.2 0 10*6/uL [facility] WBC (Bld) [#/Vol] 6.5 10*3/uL 3.6 - 10.7 10*3/uL [facility] Consulton 05-02-2024 Consult Normal [facility] Consult Normal [facility] D-DIMER,QUANTITATIVEon 05-02 D-DIMER, INNOVANCE 0.22 mg/L Normal <0.50 [facility] Comment on above: Result Comment: LEOBARDO Gill COMMENTS:Innovance D-Dimer values of <0.50 mg/L FEU can be used in combination with a pre-test probability model (e.g. Well's) to exclude pulmonary embolism (PE) disease, as well as an aid in the diagnosis of deep vein thrombosis (DVT). Performed By: #### L [id number] ####Digital Watch Assembler: VIVIAN PANTOJA ([id number])[facility] ([facility])[address] [place] [address] FIBRINOGENon 05-02-2024 FIBRINOGEN 208 mg/dL Normal 200-400 [facility] Comment on above: Performed By: #### L [id number], [id number] ####Digital Watch Assembler: VIVIAN PANTOJA ([id number])[facility] ([facility])[address] [place] [address] Fibrin D-dimer FEU (PPP) [Ma ss/Vol]on 05-02-2024 Interpretation and review of laboratory results Normal [facility] Fibrinogen Coag (PPP) [Mass/ Vol]on 05-02-2024 Interpretation and review of laboratory results Normal [facility] Laboratory - Chemistry and C hemistry - challengeOrdered By: Bisi Gimenez on 05-02-2024 Base excess Calc (BldV) [Moles/Vol] -2 mmol/L -3.0 - 3.0 mmol/L [facility] CO2 (BldV) [Partial pressure] 70.8 mm[Hg] High [facility] CO2 [Moles/Vol] 29 mmol/L High 24.0 - 28.0 mmol/L [facility] HCO3 (Bld) [Moles/Vol] 26.8 mmol/L 23.0 - 27.0 mmol/L [facility] Oxygen (BldV) [Partial pressure] 42.8 mm[Hg] mm Hg [facility] pH (BldV) 7.196 [pH] Low 7.330 - 7.430 [facility] Laboratory - Chemistry and C hemistry - challengeOrdered By: Vianca Flowers on 05-02-2024 Base excess Calc (Bld) [Moles/Vol] -1 mmol/L -3.0 - 3.0 mmol/L [facility] CO2 (Bld) [Partial pressure] 71.3 mm[Hg] High - PINF [facility] CO2 [Moles/Vol] 30.3 mmol/L High 23.0 - 27.0 mmol/L [facility] HCO3 (Bld) [Moles/Vol] 28.1 mmol/L High 21.0 - 25.0 mmol/L [facility] Oxygen (Bld) [Partial pressure] 100.6 mm[Hg] High [facility] pH (Bld) 7.213 [pH] Low 7.350 - 7.450 [facility] Laboratory - Coagulationon 0 05-02-2024 Fibrin D-dimer FEU (PPP) [Mass/Vol] 0.22 mg/L NINF - 0.50 mg/L [facility] aPTT Coag (PPP) [Time] 28 s 20.0 - 30.5 s [facility] Fibrinogen Coag (PPP) [Mass/Vol] 208 mg/dL 200 - 400 mg/dL [facility] INR Coag (PPP) [Relative time] 1.3 {INR} High 0.9 - 1.1 [facility] PT Coag (Bld) [Time] 14 s High 9.0 - 12.0 s [facility] Laboratory - Hematology and Cell countsOrdered By: Bisi Gimenez on 05-02-2024 Hemoglobin (Bld) [Mass/Vol] 9.4 g/dL Screen only [facility] Laboratory - Hematology and Cell countsOrdered By: Vianca Flowers on 05-02-2024 Hemoglobin (Bld) [Mass/Vol] 11.4 g/dL Screen only [facility] - Microbiology an d Antimicrobial susceptibilityon 05-02-2024 FLUAV RNA STEPHANIE+probe Ql (Resp) Detected Abnormal Not Detected [facility] FLUBV RNA STEPHANIE+probe Ql (Resp) Not detected Not Detected [facility] RSV RNA STEPHANIE+probe Ql (Resp) Not detected Not Detected [facility] SARS-CoV-2 (COVID-19) RNA STEPHANIE+probe Ql (Resp) Not detected Not Detected [facility] No Panel InformationOrdered By: Bisi Gimenez on 05-02-2024 Interpretation and review of laboratory results Abnormal [facility] Source Of Oxygen [facility] No Panel Informationon 05-02 Interpretation and review of laboratory results Abnormal [facility] No Panel InformationOrdered By: Vianca Flowers on 05-02-2024 Interpretation and review of laboratory results Abnormal [facility] Source Of Oxygen Nasal cannula [facility] Nursing Noteon 05-02-2024 Nursing Note Called report to [facility] T3 nurse Carly. Normal [facility] Nursing Note Normal [facility] PROTIME AND APTTon aPTT Coag (Bld) [Time] 28.0 s Normal 20.0-30.5 [facility] Comment on above: Performed By: #### L [id number], [id number] ####Digital Watch Assembler: VIVIAN PANTOJA ([id number])[address] INR Coag (PPP) [Relative time] 1.3 {INR} High 0.9-1.1 [facility] Comment on above: Result Comment: Hong [...] Myocardial Infarction Performed By: #### L AB314, [id number] ####Digital Watch Assembler: VIVIAN PANTOJA ([phone])[facility])[address] [place] [address] PT Coag (PPP) [Time] 14.0 s High 9.0-12.0 [facility] Comment on above: Performed By: #### L AB314, [id number] ####Digital Watch Assembler: VIVIAN PANTOJA ([id number])[facility])[address] [place] [address] Progress Noteon 05-02-2024 Progress Note Normal [facility] Progress Note Normal [facility] Progress Note Normal [facility] RESPIRATORY PATHOGENS PANEL BY PCRon 05-02-2024 RESPIRATORY PATHOGENS PANEL BY PCR Normal [facility] Comment on above: Performed By: #### L [id number], [id number] ####Digital Watch Assembler: VIVIAN PANTOJA ([id number])[address] SARS-COV-2, FLU A/B, AND RSV COMBOon 05-02-2024 SARS-CoV-2 (COVID-19) RNA STEPHANIE+probe Ql (Unsp spec) Normal [facility] Comment on above: Performed By: #### L [id number], [id number] ####Digital Watch Assembler: VIVIAN PANTOJA ([id number])[address] SARS-CoV-2, Flu A/B, and RSV Comboon 05-02-2024 Interpretation and review of laboratory results Abnormal [facility] Vital signsOrdered By: Anais Gimenez on 05-02-2024 Oxygen saturation in Venous blood 66.4 % [facility] XR CHEST 1 VIEWon 02-18-2025 XR CHEST 1 VIEW Normal [facility] XR Chest Single viewon 05-02 [facility] Study observation (narrative) [facility] XR Chest Single viewOrdered By: Brayan Montoya on 05-02-2024 [facility] Work Phone: 30on 05-01-2024 30 Normal [facility] 30 Normal [facility] [id number] 05-01-2024 [id number] Normal [facility] [id number] 05-01-2024 [id number] Normal [facility] 36on 05-01-2024 36 Currently admitted. Normal [facility] BASIC METABOLIC PANELon 04-15 Anion gap [Moles/Vol] 7 mmol/L Normal 3-13 [facility] Comment on above: Performed By: #### L AB15, LAB20, [id number] ####Digital Watch Assembler: VIVIAN PANTOJA ([id number])[facility] [place] [address] Calcium [Mass/Vol] 8.9 mg/dL Normal 8.8-10.0 [facility] Comment on above: Performed By: #### L AB15, LAB20, [id number] ####Digital Watch Assembler: VIVIAN PANTOJA ([id number])[facility] ([facility])[address] [place] [address] [place] Chloride [Moles/Vol] 113 mmol/L High 98-107 [facility] Comment on above: Performed By: #### L AB15, LAB20, [id number] ####Digital Watch Assembler: VIVIAN PANTOJA ([id number])[facility] [place] [address] [place] CO2 [Moles/Vol] 23 mmol/L Normal 23-31 [facility] Comment on above: Performed By: #### L AB15, LAB20, [id number] ####Digital Watch Assembler: VIVIAN PANTOJA ([id number])[facility] [place] [address] [place] Creatinine [Mass/Vol] 0.76 mg/dL Normal 0.57-1.11 [facility] Comment on above: Performed By: #### L AB15, LAB20, [id number] ####Digital Watch Assembler: VIVIAN PANTOJA ([id number])[facility])[address] [place] [address] GLOMERULAR FILTRATION RATE ML/MIN/1.73 SQ M.PREDICTED 82.9 mL/min/1.73m*2 Normal >60.0 [facility] Comment on above: Result Comment: Calc ulation based on the Chronic Kidney Disease Epidemiology Collaboration (CKD-EPI) equation refit without adjustment for race Performed By: #### L AB15, LAB20, [id number] ####Digital Watch Assembler: VIVIAN PANTOJA ([phone])[facility])[address] [place] [address] Glucose [Mass/Vol] 102 mg/dL Normal 82-115 [facility] Comment on above: Performed By: #### Manpreet AB15, LAB20, [id number] ####Digital Watch Assembler: VIVIAN PANTOJA ([id number])[address] Potassium [Moles/Vol] 4.1 mmol/L Normal 3.5-5.1 [facility] Comment on above: Result Comment: [facility] potassium values may be up to 0.5 mmol/L lower than serum values. Performed By: #### Manpreet AB15, LAB20, [id number] ####Digital Watch Assembler: VIVIAN PANTOJA ([id number])[place] [address] [place] Sodium [Moles/Vol] 143 mmol/L Normal 136-145 [facility] Comment on above: Performed By: #### L AB15, LAB20, [id number] ####Digital Watch Assembler: VIVIAN PANTOJA ([id number])[place] [address] [place] Urea nitrogen [Mass/Vol] 14 mg/dL Normal 9-23 [facility] Comment on above: Performed By: #### L AB15, LAB20, [id number] ####Digital Watch Assembler: VIVIAN PANTOJA ([phone])[facility])[address] [place] [address] Basic metabolic 1998 panelon 05-01-2024 Anion gap [Moles/Vol] 7 mmol/L 3 - 13 mmol/L [facility] Calcium [Mass/Vol] 8.9 mg/dL 8.8 - 10. 0 mg/dL [facility] Chloride [Moles/Vol] 113 mmol/L High 98 - 10 7 mmol/L [facility] [place] CO2 [Moles/Vol] 23 mmol/L 23 - 31 mmol/L [facility] [place] Creatinine [Mass/Vol] 0.76 mg/dL 0.57 - 1.11 mg/dL [facility] [place] GFR/1.73 sq M.predicted (S/P/Bld) [Vol rate/Area] 82.9 mL/min - PINF [facility] [place] Glucose [Mass/Vol] 102 mg/dL 82 - 115 mg/dL [facility] Interpretation and review of laboratory results Abnormal [facility] [place] Potassium [Moles/Vol] 4.1 mmol/L 3.5 - 5.1 mmol/L [facility] [place] Sodium [Moles/Vol] 143 mmol/L 136 - 145 mmol/L [facility] [place] Urea nitrogen [Mass/Vol] 14 mg/dL 9 - 23 mg/dL [facility] CBC (HEMOGRAM)on 05-01-2024 Erythrocyte distribution width (RBC) [Ratio] 14.9 % Normal 11.5-15.0 [facility] Comment on above: Performed By: #### L [id number] ####Digital Watch Assembler: VIVIAN PANTOJA ([id number])[facility] ([facility])[address] [place] [address] Hematocrit (Bld) [Volume fraction] 34.3 % Low 35.0-47.0 [facility] Comment on above: Performed By: #### L [id number] ####Digital Watch Assembler: VIVIAN PANTOJA ([phone])[facility])[address] [place] [address] Hemoglobin (Bld) [Mass/Vol] 10.4 g/dL Low 11.7-16.0 [facility] Comment on above: Performed By: #### L AB294 ####Digital Watch Assembler: VIVIAN PANTOJA ([id number])[facility] ([facility])[address] [place] [address] IPF 13 Normal [facility] Comment on above: Performed By: #### L AB294 ####Digital Watch Assembler: VIVIAN PANTOJA ([phone])[facility] ([facility])[address] [place] [address] MCH (RBC) [Entitic mass] 28.0 pg Normal 26.0-34.0 [facility] Comment on above: Performed By: #### L AB294 ####Digital Watch Assembler: VIVIAN PANTOJA ([id number])[facility])[address] [place] [address] MCHC 30.3 % Low 30.5-36.0 [facility] Comment on above: Performed By: #### L AB294 ####Digital Watch Assembler: VIVIAN PANTOJA ([id number])[facility] ([facility])[address] [place] [address] MCV (RBC) [Entitic vol] 92.2 fL Normal 77.0-99.0 [facility] Comment on above: Performed By: #### L AB294 ####Digital Watch Assembler: VIVIAN PANTOJA ([phone])[facility] ([facility])[address] [place] [address] Platelet mean volume (Bld) [Entitic vol] 13.9 fL High 9.0-12.7 [facility] Comment on above: Performed By: #### L [id number] ####Digital Watch Assembler: VIVIAN PANTOJA ([id number])[facility] ([facility])[address] [place] [address] Platelets (Bld) [#/Vol] 59 10*3/uL Low 140-440 [facility] Comment on above: Performed By: #### L AB294 ####Digital Watch Assembler: VIVIAN PANTOJA ([id number])[facility] ([facility])[address] [place] [address] RBC (Bld) [#/Vol] 3.72 10*6/uL Low 3.80-5.20 [facility] Comment on above: Performed By: #### L AB294 ####Digital Watch Assembler: VIVIAN PANTOJA ([id number])[facility] ([facility])[address] [place] [address] WBC (Bld) [#/Vol] 6.1 10*3/uL Normal 3.6-10.7 [facility] Comment on above: Performed By: #### L [id number] ####Digital Watch Assembler: VIVIAN PANTOJA ([id number])[facility] ([facility])[address] [place] [address] CBC panel Auto (Bld)Ordered By: Hugh Dominguez on 05-01-2024 Erythrocyte distribution width (RBC) [Ratio] 14.9 % 11.5 - 15.0 % [facility] [place] Hematocrit (Bld) [Volume fraction] 34.3 % Low 35.0 - 47.0 % [facility] Hemoglobin (Bld) [Mass/Vol] 10.4 g/dL Low 11.7 - 16.0 g/dL [facility] [place] Interpretation and review of laboratory results Abnormal [facility] IPF 13 [facility] MCH (RBC) [Entitic mass] 28 pg 26.0 - 34.0 pg [facility] MCHC (RBC) [Mass/Vol] 30.3 % Low 30.5 - 36.0 % [facility] [place] MCV (RBC) [Entitic vol] 92.2 fL 77.0 - 99.0 fL [facility] Platelet mean volume (Bld) [Entitic vol] 13.9 fL High 9.0 - 12.7 fL [facility] [place] Platelets (Bld) [#/Vol] 59 10*3/uL Low 140 - 440 10*3/uL [facility] RBC (Bld) [#/Vol] 3.72 10*6/uL Low 3.80 - 5.2 0 10*6/uL [facility] WBC (Bld) [#/Vol] 6.1 10*3/uL 3.6 - 10.7 10*3/uL [facility] Catecholamines,Frac Urineon 05-01-2024 Catecholamines Willis (U) [Interp] See Note [facility] Comment on above: TEST INFORMATION: Ca techolamines [...] reference intervals for this test in the [employer] Laboratory Test Directory (PingMe). This test was developed and its performance characteristics determined by [employer]. It has not been cleared or approved by the US Food and Drug Administration. This test was performed in a CLIA certified laboratory and is intended for clinical purposes. Collection duration (Unsp spec) 24 hr [facility] Comment on above: Per 24h calculations are provided to aid interpretation for collections with a duration of 24 hours and an average daily urine volume. For specimens with notable deviations in collection time or volume, ratios of analytes to a corresponding urine creatinine concentration may assist in result interpretation. Creatinine (24H U) [Mass/Time] 564 mg/d 500 - 1400 mg/d [facility] Comment on above: Performed By: [facility] [address] [place] [address] Speech And Drama Teacher: Miranda Dorman MD, PhD [facility] Number: [id number] Creatinine (U) [Mass/Vol] 182 mg/dL [facility] DOPamine (24H U) [Mass/Time] 100 ug/d 71 - 485 ug/d [facility] Comment on above: REFERENCE INTERVAL: Dopamine, Urine - ug/d Access complete set of age- and/or gender-specific reference intervals for this test in the [employer] Laboratory Test Directory (PingMe). DOPamine (U) [Mass/Vol] 322 ug/L [facility] DOPamine/Creatinine (U) [Mass ratio] 177 [facility] EPINEPHrine (24H U) [Mass/Time] 1 ug/d 1 - 14 ug/d [facility] Comment on above: REFERENCE INTERVAL: Epinephrine, Urine - ug/d Access complete set of age- and/or gender-specific reference intervals for this test in the [employer] Laboratory Test Directory (PingMe). EPINEPHrine (U) [Mass/Vol] 2 ug/L [place] EPINEPHrine/Creatinine (U) [Mass ratio] 1 [facility] Norepinephrine (24H U) [Mass/Time] 15 ug/d 14 - 120 ug/d [facility] Comment on above: REFERENCE INTERVAL: Norepinephrine, Urine - ug/d Access complete set of age- and/or gender-specific reference intervals for this test in the [facility] Laboratory Test Directory (PingMe). Norepinephrine (U) [Mass/Vol] 49 ug/L [facility] [place] Norepinephrine/Creatin ine (U) [Mass ratio] 27 [facility] Specimen volume Unsp time (U) 310 mL [facility] HEPATIC FUNCTION PANELon Albumin [Mass/Vol] 3.4 g/dL Normal 3.4-4.8 [facility] Comment on above: Performed By: #### L AB15, LAB20, [id number] ####Digital Watch Assembler: VIVIAN PANTOJA ([id number])[facility])[address] [place] [address] ALP [Catalytic activity/Vol] 60 U/L Normal 40-150 [facility] Comment on above: Performed By: #### L AB15, LAB20, [id number] ####Digital Watch Assembler: VIVIAN PANTOJA ([id number])[facility])[address] [place] [address] ALT [Catalytic activity/Vol] 8 U/L Normal <30 [facility] Comment on above: Performed By: #### L AB15, LAB20, [id number] ####Digital Watch Assembler: VIVIAN PANTOJA ([id number])[facility])[address] [place] [address] AST [Catalytic activity/Vol] 20 U/L Normal <34 [facility] Comment on above: Performed By: #### L AB15, LAB20, [id number] ####Digital Watch Assembler: VIVIAN PANTOJA ([phone])[facility])[address] [place] [address] Bilirubin [Mass/Vol] 0.9 mg/dL Normal <1.2 [facility] Comment on above: Performed By: #### L AB15, LAB20, [id number] ####Digital Watch Assembler: VIVIAN PANTOJA ([phone])[facility] [place] [address] Bilirubin.indirect [Mass/Vol] 0.2 mg/dL Normal <0.5 [facility] Comment on above: Performed By: #### L AB15, LAB20, [id number] ####Digital Watch Assembler: VIVIAN PANTOJA ([id number])[facility])[address] [place] [address] Protein [Mass/Vol] 5.6 g/dL Low 6.4-8.3 [facility] Comment on above: Result Comment: Seru m protein values are higher than plasma values. Samples from recumbent persons are lower by up to 0.5 g/dL as compared to ambulatory persons. After 60 years values are lower by up to 0.2 g/dL. Performed By: #### L AB15, LAB20, [id number] ####Digital Watch Assembler: VIVIAN PANTOJA ([id number])[facility] ([facility])[address] [place] [address] Hepatic function 2000 panelo n 05-01-2024 Albumin [Mass/Vol] 3.4 g/dL 3.4 - 4.8 g/dL [facility] ALP [Catalytic activity/Vol] 60 U/L 40 - 150 U/L [facility] ALT [Catalytic activity/Vol] 8 [facility] AST [Catalytic activity/Vol] 20 U/L [facility] U/L [facility] Bilirubin [Mass/Vol] 0.9 mg/dL [facility] - [facility] mg/dL [facility] Bilirubin.conjugated [Mass/Vol] 0.2 mg/dL [facility] mg/dL [facility] Interpretation and review of laboratory results Abnormal [facility] [place] Protein [Mass/Vol] 5.6 g/dL Low 6.4 - 8.3 g/dL [facility] NT PRO BNPon 05-01-2024 Natriuretic peptide B (Bld) [Mass/Vol] 6313 pg/mL High <125 [facility] Comment on above: Performed By: #### L AB15, LAB20, [id number] ####Digital Watch Assembler: VIVIAN PANTOJA ([phone])[facility] ([facility])[address] [place] [address] [place] Natriuretic peptide B [Mass/ Vol]on 05-01-2024 Interpretation and review of laboratory results Abnormal [facility] Natriuretic peptide B (Bld) [Mass/Vol] 6313 pg/mL High NINF - 125 pg/mL [facility] Progress Noteon 05-01-2024 Progress Note Normal [facility] Progress Note Normal [facility] Progress Note Normal [facility] 30on 04-30-2024 30 Normal [facility] 30 Normal [facility] 30 Normal [facility] [id number] 04-30-2024 [id number] Normal [facility] [id number] Normal [facility] BASIC METABOLIC PANELon 04-15 Anion gap [Moles/Vol] 6 mmol/L Normal 3-13 [facility] Comment on above: Performed By: #### L AB106, [id number], LAB15 ####Digital Watch Assembler: VIVIAN PANTOJA ([id number])[facility] [place] [address] [place] Calcium [Mass/Vol] 8.6 mg/dL Low 8.8-10.0 [facility] Comment on above: Performed By: #### L AB106, [id number], LAB15 ####Digital Watch Assembler: VIVIAN PANTOJA ([id number])[facility] [place] [address] [place] Chloride [Moles/Vol] 115 mmol/L High 98-107 [facility] Comment on above: Performed By: #### L AB106, [id number], LAB15 ####Digital Watch Assembler: VIVIAN PANTOJA ([id number])[facility] ([facility])[address] [place] [address] [place] CO2 [Moles/Vol] 21 mmol/L Low 23-31 [facility] Comment on above: Performed By: #### L AB106, [id number], LAB15 ####Digital Watch Assembler: VIVIAN PANTOJA ([id number])[facility] ([facility])[address] [place] [address] [place] Creatinine [Mass/Vol] 1.12 mg/dL High 0.57-1.11 [facility] Comment on above: Performed By: #### L AB106, [id number], LAB15 ####Digital Watch Assembler: VIVIAN PANTOJA ([phone])[facility])[address] [place] [address] GLOMERULAR FILTRATION RATE ML/MIN/1.73 SQ M.PREDICTED 52.0 mL/min/1.73m*2 Low >60.0 [facility] Comment on above: Result Comment: Calc ulation based on the Chronic Kidney Disease Epidemiology Collaboration (CKD-EPI) equation refit without adjustment for race Performed By: #### L AB106, [id number], LAB15 ####Digital Watch Assembler: VIVIAN PANTOJA ([id number])[facility])[address] [place] [address] Glucose [Mass/Vol] 113 mg/dL Normal 82-115 [facility] Comment on above: Performed By: #### Manpreet AB106, [id number], LAB15 ####Digital Watch Assembler: VIVIAN PANTOJA ([id number])[facility])[address] [place] [address] Potassium [Moles/Vol] 3.6 mmol/L Normal 3.5-5.1 [facility] Comment on above: Result Comment: [facility] potassium values may be up to 0.5 mmol/L lower than serum values. Performed By: #### L AB106, [id number], LAB15 ####Digital Watch Assembler: VIVIAN PANTOJA ([id number])[facility])[address] [place] [address] [place] Sodium [Moles/Vol] 142 mmol/L Normal 136-145 [facility] Comment on above: Performed By: #### L AB106, [id number], LAB15 ####Digital Watch Assembler: VIVIAN PANTOJA ([id number])[address] Urea nitrogen [Mass/Vol] 20 mg/dL Normal 9-23 [facility] Comment on above: Performed By: #### L AB106, [id number], LAB15 ####Digital Watch Assembler: VIVIAN PANTOJA ([id number])[facility])[address] [place] [address] Basic metabolic 1998 panelon 04-30-2024 Anion gap [Moles/Vol] 6 mmol/L 3 - 13 mmol/L [facility] Calcium [Mass/Vol] 8.6 mg/dL Low 8.8 - 10. 0 mg/dL [facility] Chloride [Moles/Vol] 115 mmol/L High 98 - 10 7 mmol/L [facility] CO2 [Moles/Vol] 21 mmol/L Low 23 - 31 mmol/L [facility] Creatinine [Mass/Vol] 1.12 mg/dL High 0.57 - 1.11 mg/dL [facility] GFR/1.73 sq M.predicted (S/P/Bld) [Vol rate/Area] 52 mL/min Low - PINF [facility] Glucose [Mass/Vol] 113 mg/dL 82 - 115 mg/dL [facility] Potassium [Moles/Vol] 3.6 mmol/L 3.5 - 5.1 mmol/L [facility] Sodium [Moles/Vol] 142 mmol/L 136 - 145 mmol/L [facility] Urea nitrogen [Mass/Vol] 20 mg/dL 9 - 23 mg/dL [facility] CBC (HEMOGRAM)on 04-30-2024 Erythrocyte distribution width (RBC) [Ratio] 15.2 % High 11.5-15.0 [facility] Comment on above: Performed By: #### L AB294 ####Digital Watch Assembler: VIVIAN PANTOJA ([id number])[facility] ([facility])[address] [place] [address] Hematocrit (Bld) [Volume fraction] 31.4 % Low 35.0-47.0 [facility] Comment on above: Performed By: #### L AB294 ####Digital Watch Assembler: VIVIAN PANTOJA ([id number])[facility])[address] [place] [address] Hemoglobin (Bld) [Mass/Vol] 9.7 g/dL Low 11.7-16.0 [facility] Comment on above: Performed By: #### L AB294 ####Digital Watch Assembler: VIVIAN PANTOJA ([phone])[facility] ([facility])[address] [place] [address] IPF 9 Normal [facility] Comment on above: Performed By: #### L AB294 ####Digital Watch Assembler: VIVIAN PANTOJA ([id number])[facility] ([facility])[address] [place] [address] MCH (RBC) [Entitic mass] 28.0 pg Normal 26.0-34.0 [facility] Comment on above: Performed By: #### L AB294 ####Digital Watch Assembler: VIVIAN PANTOJA ([id number])[facility])[address] [place] [address] MCHC 30.9 % Normal 30.5-36.0 [facility] Comment on above: Performed By: #### L AB294 ####Digital Watch Assembler: VIVIAN PANTOJA ([id number])[facility] ([facility])[address] [place] [address] MCV (RBC) [Entitic vol] 90.5 fL Normal 77.0-99.0 [facility] Comment on above: Performed By: #### L AB294 ####Digital Watch Assembler: VIVIAN PANTOJA ([id number])[facility] ([facility])[address] [place] [address] Platelet mean volume (Bld) [Entitic vol] 13.0 fL High 9.0-12.7 [facility] Comment on above: Performed By: #### L AB294 ####Digital Watch Assembler: VIVIAN PANTOJA ([id number])[facility] ([facility])[address] [place] [address] [place] Platelets (Bld) [#/Vol] 77 10*3/uL Low 140-440 [facility] Comment on above: Performed By: #### L AB294 ####Digital Watch Assembler: VIVIAN PANTOJA ([id number])[facility] ([facility])[address] [place] [address] RBC (Bld) [#/Vol] 3.47 10*6/uL Low 3.80-5.20 [facility] Comment on above: Performed By: #### L AB294 ####Digital Watch Assembler: VIVIAN PANTOJA ([id number])[facility] ([facility])[address] [place] [address] WBC (Bld) [#/Vol] 8.7 10*3/uL Normal 3.6-10.7 [facility] Comment on above: Performed By: #### L AB294 ####Digital Watch Assembler: VIVIAN PANTOJA ([phone])[facility] ([facility])[address] [place] [address] CBC panel Auto (Bld)on 04-30 Erythrocyte distribution width (RBC) [Ratio] 15.2 % High 11.5 - 15.0 % [facility] Hematocrit (Bld) [Volume fraction] 31.4 % Low 35.0 - 47.0 % [facility] Hemoglobin (Bld) [Mass/Vol] 9.7 g/dL Low 11.7 - 16.0 g/dL [facility] Interpretation and review of laboratory results Abnormal [facility] IPF 9 [facility] MCH (RBC) [Entitic mass] 28 pg 26.0 - 34.0 pg [facility] MCHC (RBC) [Mass/Vol] 30.9 % 30.5 - 36.0 % [facility] MCV (RBC) [Entitic vol] 90.5 fL 77.0 - 99.0 fL [facility] Platelet mean volume (Bld) [Entitic vol] 13 fL High 9.0 - 12.7 fL [facility] Platelets (Bld) [#/Vol] 77 10*3/uL Low 140 - 440 10*3/uL [facility] RBC (Bld) [#/Vol] 3.47 10*6/uL Low 3.80 - 5.2 0 10*6/uL [facility] WBC (Bld) [#/Vol] 8.7 10*3/uL 3.6 - 10.7 10*3/uL [facility] ECG 12-LEADon 04-30-2024 ECG 12-LEAD IMPRESSION: Atrial fibrillation BASELINE ARTIFACT Low voltage, extremity and precordial leads Minimal ST depression, diffuse leads Electronically Signed On 04-30-2024 07:30:03 EST by Ovidio Bejarano Normal [facility] - Chemistry and C hemistry - challengeon 04-30-2024 Magnesium [Mass/Vol] 1.5 mg/dL Low 1.6 - 2 .6 mg/dL [facility] MAGNESIUMon 04-30-2024 Magnesium [Mass/Vol] 1.5 mg/dL Low 1.6-2.6 [facility] Comment on above: Result Comment: LEOBARDO R COMMENTS:Higher values can be expected in females during menses. Performed By: #### L AB106, [id number], LAB15 ####Digital Watch Assembler: VIVIAN PANTOJA ([id number])[facility] ([employer])[address] [place] [address] Magnesium [Mass/Vol]on 04-30 Interpretation and review of laboratory results Abnormal [facility] NT PRO BNPon 04-30-2024 Natriuretic peptide B (Bld) [Mass/Vol] 6267 pg/mL High <125 [facility] Comment on above: Performed By: #### L AB106, [id number], LAB15 ####Digital Watch Assembler: VIVIAN PANTOJA ([id number])[facility] ([employer])[address] [place] [address] Natriuretic peptide B [Mass/ Vol]on 04-30-2024 Natriuretic peptide B (Bld) [Mass/Vol] 6267 pg/mL High NINF - 125 pg/mL [facility] No Panel InformationOrdered By: Ovidio Bejarano on 04-30-2024 P Ackerman 0 degrees [employer] Phone: AK Interval 0 ms [employer] Phone: QRS Ackerman 91 degrees [employer] Phone: QRSD Interval 80 ms [employer] Phone: QT Interval 309 ms [employer] Phone: QTC Interval 328 ms [employer] Phone: T Wave Ackerman 213 degrees [employer] Phone: [employer] Phone: No Panel Informationon 04-30 CV EPIPHANY [facility] P Ackerman 0 degrees [facility] AK Interval 0 ms [facility] QRS Ackerman 78 degrees [facility] QRSD Interval 77 ms [facility] QT Interval 275 ms [facility] QTC Interval 321 ms [facility] T Wave Ackerman 252 degrees [facility] CV EPIPHANY [facility] Interpretation and review of laboratory results Abnormal [facility] Progress Noteon 04-30-2024 Progress Note Normal [facility] Progress Note Normal [facility] Progress Note Normal [facility] Progress Note Normal [facility] VMA, urineon 04-30-2024 Collection duration (Unsp spec) 24 hr [facility] Comment on above: Per 24h calculations are provided to aid interpretation for collections with a duration of 24 hours and an average daily urine volume. For specimens with notable deviations in collection time or volume, ratios of analytes to a corresponding urine creatinine concentration may assist in result interpretation. Creatinine (24H U) [Mass/Time] 564 mg/d 500 - 1400 mg/d [facility] Creatinine (U) [Mass/Vol] 182 mg/dL [facility] Specimen volume Unsp time (U) 310 mL [facility] Vanillylmandelate (24H U) [Mass/Time] 1.9 mg/d 0.0 - 7.0 mg/d [facility] Vanillylmandelate (U) [Mass/Vol] 6.2 mg/L [facility] Vanillylmandelate and Creatinine Willis (24H U) [Interp] See Note [facility] Comment on above: INTERPRETIVE INFORMA TION: Vanillylmandelic Acid (VMA), Urine Vanillylmandelic acid (VMA) results are expressed as a ratio to creatinine excretion (mg/g BANKRUPTCY PARALEGAL). No reference interval is available for results [...] developed and its performance characteristics determined by [employer]. It has not been cleared or approved by the US Food and Drug Administration. This test was performed in a CLIA certified laboratory and is intended for clinical purposes. Vanillylmandelate/Crea tinine (24H U) [Mass ratio] 3 [facility] Comment on above: REFERENCE INTERVAL: VMA, Urine mg/g BANKRUPTCY PARALEGAL Access complete set of age- and/or gender-specific reference intervals for this test in the [employer] [facility] Test Directory (PingMe). Performed By: [employer] [address] [place] [address] [employer] Teacher: Miranda Dorman MD, PhD CLIA Number: [id number] [facility] Vital signsOrdered By: Ovidio Bejarano on 04-30-2024 Heart rate 67 /min bpm [facility] Work Phone: Vital signson 04-30-2024 Heart rate 82 /min bpm [facility] 30on 04-29-2024 30 Normal [facility] 30 Normal [facility] 30 Normal [facility] 36on 04-29-2024 36 Pt known to Tony. Was scheduled for follow up but pt canceled. Hx of microhematuria and adrenal lesions. Needs follow up rescheduled. Thanks! Normal [facility] ALDOSTERONE ([facility]KR [facility])on [facility] ALDOSTERONE, LC/MS/MS <1 Normal [facility] Comment on above: Result Comment: Unab le to flag abnormal result(s), please refer to reference range(s) below:Adult Reference Ranges for Aldosterone, LC/MS/MS: Upright 8:00 - 10:00 am < or = 28 ng/dL Upright 4:00 - 6:00 pm < or = 21 ng/dL Supine 8:00 - 10:00 am 3 - 16 ng/dLThis test was developed and its analytical performancecharacteristics have been determined by [employer] [place], [place]. It hasnot been cleared or approved by the U.S. Food and DrugAdministration. This assay has been validated pursuantto the CLIA regulations and is used for clinicalpurposes.Test Performed by [facility] [place],[employer] [place],[address] [place] [id number] Brown M.D., Ph.D., Director of [phone], CLIA [id number] Performed By: #### L [id number] ####[employer] (AMDBEAKER)[id number] [place], [place] [facility] BASIC METABOLIC PANELon 04-15 Anion gap [Moles/Vol] 6 mmol/L Normal 3-13 [facility] Comment on above: Performed By: #### L AB15, [id number], LAB61 ####[employer] Watch Assembler: VIVIAN PANTOJA ([phone])[facility] ([facility])[address] [place] [address] Calcium [Mass/Vol] 8.5 mg/dL Low 8.8-10.0 [facility] Comment on above: Performed By: #### Manpreet AB15, [id number], LAB61 ####[employer] As[employer]er: VIVIAN PANTOJA ([phone])[facility] ([facility])[address] [place] [address] Chloride [Moles/Vol] 116 mmol/L High 98-107 [facility] Comment on above: Performed By: #### Manpreet AB15, [id number], LAB61 ####[employer] Assembler: VIVIAN PANTOJA ([phone])[facility] ([facility])[address] [place] [address] CO2 [Moles/Vol] 21 mmol/L Low 23-31 [facility] Comment on above: Performed By: #### Manpreet AB15, [id number], LAB61 ####[employer] Watch Assembler: VIVIAN PANTOJA ([id number])[facility])[address] [place] [address] Creatinine [Mass/Vol] 1.51 mg/dL High 0.57-1.11 [facility] Comment on above: Performed By: #### L AB15, [id number], LAB61 ####Digital Watch Assembler: VIVIAN PANTOJA ([id number])[facility])[address] [place] [address] GLOMERULAR FILTRATION RATE ML/MIN/1.73 SQ M.PREDICTED 36.4 mL/min/1.73m*2 Low >60.0 [facility] Comment on above: Result Comment: Calc ulation based on the Chronic Kidney Disease Epidemiology Collaboration (CKD-EPI) equation refit without adjustment for race Performed By: #### L AB15, [id number], LAB61 ####[employer] Watch Assembler: VIVIAN PANTOJA ([phone])[facility] ([facility])[address] [place] [address] Glucose [Mass/Vol] 81 mg/dL Low 82-115 [facility] Comment on above: Performed By: #### L AB15, [id number], LAB61 ####Digital Watch Assembler: VIVIAN PANTOJA ([phone])[facility])[address] [place] [address] Potassium [Moles/Vol] 3.8 mmol/L Normal 3.5-5.1 [facility] Comment on above: Result Comment: [facility] potassium values may be up to 0.5 mmol/L lower than serum values. Performed By: #### Manpreet CORONA, [id number], LAB61 ####Digital Watch Assembler: VIVIAN PANTOJA ([phone])[facility] ([facility])[address] [place] [address] Sodium [Moles/Vol] 143 mmol/L Normal 136-145 [facility] Comment on above: Performed By: #### Manpreet AB15, [id number], LAB61 ####Digital Watch Assembler: VIVIAN PANTOJA ([phone])[facility])[address] [place] [address] Urea nitrogen [Mass/Vol] 25 mg/dL High 9-23 [facility] Comment on above: Performed By: #### Manpreet AB15, [id number], LAB61 ####Digital Watch Assembler: VIVIAN PANTOJA ([id number])[facility])[address] [place] [address] Bacteria identified Cx Nom ( U)Ordered By: Spencer Guadalupe on 04-29-2024 Interpretation and review of laboratory results Normal [facility] Basic metabolic 1998 panelon 04-29-2024 Anion gap [Moles/Vol] 6 mmol/L 3 - 13 mmol/L [facility] Calcium [Mass/Vol] 8.5 mg/dL Low 8.8 - 10. 0 mg/dL [facility] Chloride [Moles/Vol] 116 mmol/L High 98 - 10 7 mmol/L [facility] CO2 [Moles/Vol] 21 mmol/L Low 23 - 31 mmol/L [facility] Creatinine [Mass/Vol] 1.51 mg/dL High 0.57 - 1.11 mg/dL [facility] GFR/1.73 sq M.predicted (S/P/Bld) [Vol rate/Area] 36.4 mL/min Low - PINF [facility] Glucose [Mass/Vol] 81 mg/dL Low 82 - 115 mg/dL [facility] Interpretation and review of laboratory results Abnormal [facility] Potassium [Moles/Vol] 3.8 mmol/L 3.5 - 5.1 mmol/L [facility] Sodium [Moles/Vol] 143 mmol/L 136 - 145 mmol/L [facility] Urea nitrogen [Mass/Vol] 25 mg/dL High 9 - 23 mg/dL [facility] CBC (HEMOGRAM)on 04-29-2024 Erythrocyte distribution width (RBC) [Ratio] 15.1 % High 11.5-15.0 [facility] Comment on above: Performed By: #### L AB294 ####[employer] Watch Assembler: VIVIAN PANTOJA ([id number])[address] Hematocrit (Bld) [Volume fraction] 33.0 % Low 35.0-47.0 [facility] Comment on above: Performed By: #### L AB294 ####Digital Watch Assembler: VIVIAN PANTOJA ([phone])[facility])[address] [place] [address] Hemoglobin (Bld) [Mass/Vol] 9.9 g/dL Low 11.7-16.0 [facility] Comment on above: Performed By: #### L AB294 ####Digital Watch Assembler: VIVIAN PANTOJA ([phone])[facility])[address] [place] [address] IPF 11 Normal [facility] Comment on above: Performed By: #### L AB294 ####[employer] Assembler: VIVIAN [id number])[facility] ([facility])[address] [place] [address] MCH (RBC) [Entitic mass] 27.4 pg Normal 26.0-34.0 [facility] Comment on above: Performed By: #### L AB294 ####[employer] Assembler: VIVIAN PANTOJA ([phone])[facility] ([facility])[address] [place] [address] MCHC 30.0 % Low 30.5-36.0 [facility] Comment on above: Performed By: #### L AB294 ####Digital Watch Assembler: VIVIAN PANTOJA ([phone])[facility] ([facility])[address] [place] [address] MCV (RBC) [Entitic vol] 91.4 fL Normal 77.0-99.0 [facility] Comment on above: Performed By: #### L AB294 ####[employer] Assembler: VIVIAN PANTOJA ([id number])[facility] ([facility])[address] [place] [address] Platelet mean volume (Bld) [Entitic vol] 13.5 fL High 9.0-12.7 [facility] Comment on above: Performed By: #### L AB294 ####[employer] Assembler: VIVIAN PANTOJA ([phone])[facility] ([facility])[address] [place] [address] Platelets (Bld) [#/Vol] 77 10*3/uL Low 140-440 [facility] Comment on above: Performed By: #### L [id number] ####[employer] Watch Assembler: VIVIAN PANTOJA ([id number])[facility] ([facility])[address] [place] [address] RBC (Bld) [#/Vol] 3.61 10*6/uL Low 3.80-5.20 [facility] Comment on above: Performed By: #### L AB294 ####[employer] Assembler: VIVIAN PANTOJA ([phone])[facility] ([facility])[address] [place] [address] WBC (Bld) [#/Vol] 8.6 10*3/uL Normal 3.6-10.7 [facility] Comment on above: Performed By: #### L AB294 ####[employer] Assembler: VIVIAN PANTOJA ([phone])[facility] ([facility])[address] [place] [address] CBC panel Auto (Bld)on 04-29 Erythrocyte distribution width (RBC) [Ratio] 15.1 % High 11.5 - 15.0 % [facility] Hematocrit (Bld) [Volume fraction] 33 % Low 35.0 - 47.0 % [facility] Hemoglobin (Bld) [Mass/Vol] 9.9 g/dL Low 11.7 - 16.0 g/dL [facility] Interpretation and review of laboratory results Abnormal [facility] IPF 11 [facility] MCH (RBC) [Entitic mass] 27.4 pg 26.0 - 34.0 pg [facility] MCHC (RBC) [Mass/Vol] 30 % Low 30.5 - 36.0 % [facility] MCV (RBC) [Entitic vol] 91.4 fL 77.0 - 99.0 fL [facility] Platelet mean volume (Bld) [Entitic vol] 13.5 fL High 9.0 - 12.7 fL [facility] Platelets (Bld) [#/Vol] 77 10*3/uL Low 140 - 440 10*3/uL [facility] RBC (Bld) [#/Vol] 3.61 10*6/uL Low 3.80 - 5.2 0 10*6/uL [facility] WBC (Bld) [#/Vol] 8.6 10*3/uL 3.6 - 10.7 10*3/uL [facility] CORTISOLon 04-29-2024 CORTISOL 7.0 ug/dL Normal 3.7-19.4 [facility] Comment on above: Result Comment: LEOBARDO Gill COMMENTS:Before 10am 4.5-22.7 ug/dLAfter 5pm 1.7-14.1 ug/dL Performed By: #### L AB15, [id number], LAB61 ####Digital Watch Assembler: VIVIAN PANTOJA ([phone])[facility] ([facility])[address] [place] [address] Laboratory - Chemistry and C hemistry - challengeon 04-29-2024 Cortisol [Mass/Vol] 7 ug/dL 3.7 - 19 .4 ug/dL [facility] Laboratory - Microbiology an d Antimicrobial susceptibilityOrdered By: Spencer Guadalupe on 04-29-2024 Bacteria identified Cx Nom (U) Multiple species present; probable contamination; repeat suggested [facility] NT PRO BNPon 04-29-2024 Natriuretic peptide B (Bld) [Mass/Vol] 6549 pg/mL High <125 [facility] Comment on above: Performed By: #### L AB15, [id number], LAB61 ####Digital Watch Assembler: VIVIAN PANTOJA ([phone])[facility] ([facility])[address] [place] [address] Natriuretic peptide B [Mass/ Vol]on 04-29-2024 Interpretation and review of laboratory results Abnormal [facility] Natriuretic peptide B (Bld) [Mass/Vol] 6549 pg/mL High NINF - 125 pg/mL [facility] No Panel Informationon 04-29 Interpretation and review of laboratory results Normal [facility] Progress Noteon 04-29-2024 Progress Note Normal [facility] Progress Note Normal [facility] Progress Note Normal [facility] 30on 04-28-2024 30 Normal [facility] 30 Normal [facility] BASIC METABOLIC PANELon 04-15 Anion gap [Moles/Vol] 7 mmol/L Normal 3-13 [facility] Comment on above: Performed By: #### L AB15, [id number] ####[employer] Assembler: VIVIAN PANTOJA ([id number])[facility] ([facility])[address] [place] [address] [place] Calcium [Mass/Vol] 9.0 mg/dL Normal 8.8-10.0 [facility] Comment on above: Performed By: #### L AB15, [id number] ####[employer] Assembler: VIVIAN PANTOJA ([phone])[facility] ([facility])[address] [place] [address] [place] Chloride [Moles/Vol] 116 mmol/L High 98-107 [facility] Comment on above: Performed By: #### L AB15, [id number] ####[employer] Assembler: VIVIAN PANTOJA ([phone])[facility])[address] [place] [address] CO2 [Moles/Vol] 19 mmol/L Low 23-31 [facility] Comment on above: Performed By: #### L AB15, [id number] ####[employer] Assembler: VIVIAN PANTOJA ([phone])[facility])[address] [place] [address] Creatinine [Mass/Vol] 1.86 mg/dL High 0.57-1.11 [facility] Comment on above: Performed By: #### L AB15, [id number] ####[employer] Watch Assembler: VIVIAN PANTOJA ([phone])[facility])[address] [place] [address] GLOMERULAR FILTRATION RATE ML/MIN/1.73 SQ M.PREDICTED 28.3 mL/min/1.73m*2 Low >60.0 [facility] Comment on above: Result Comment: Calc ulation based on the Chronic Kidney Disease Epidemiology Collaboration (CKD-EPI) equation refit without adjustment for race Performed By: #### L AB15, [id number] ####Digital Watch Assembler: VIVIAN PANTOJA ([id number])[facility])[address] [place] [address] Glucose [Mass/Vol] 87 mg/dL Normal 82-115 [facility] Comment on above: Performed By: #### L AB15, [id number] ####Digital Watch Assembler: VIVIAN PANTOJA ([phone])[facility])[address] [place] [address] [place] Potassium [Moles/Vol] 4.1 mmol/L Normal 3.5-5.1 [facility] Comment on above: Result Comment: [facility] potassium values may be up to 0.5 mmol/L lower than serum values. Performed By: #### L AB15, [id number] ####Digital Watch Assembler: VIVIAN PANTOJA ([phone])[facility] [place] [address] Sodium [Moles/Vol] 142 mmol/L Normal 136-145 [facility] Comment on above: Performed By: #### L AB15, [id number] ####Digital Watch Assembler: VIVIAN PANTOJA ([phone])[facility] ([facility])[address] [place] [address] Urea nitrogen [Mass/Vol] 26 mg/dL High 9-23 [facility] Comment on above: Performed By: #### L AB15, [id number] ####Digital Watch Assembler: VIVIAN PANTOJA ([phone])[facility] ([facility])[address] [place] [address] Basic metabolic 1998 panelon 04-28-2024 Anion gap [Moles/Vol] 7 mmol/L 3 - 13 mmol/L [facility] Calcium [Mass/Vol] 9 mg/dL 8.8 - 10. 0 mg/dL [facility] Chloride [Moles/Vol] 116 mmol/L High 98 - 10 7 mmol/L [facility] CO2 [Moles/Vol] 19 mmol/L Low 23 - 31 mmol/L [facility] Creatinine [Mass/Vol] 1.86 mg/dL High 0.57 - 1.11 mg/dL [facility] GFR/1.73 sq M.predicted (S/P/Bld) [Vol rate/Area] 28.3 mL/min Low - PINF [facility] Glucose [Mass/Vol] 87 mg/dL 82 - 115 mg/dL [facility] Interpretation and review of laboratory results Abnormal [facility] Potassium [Moles/Vol] 4.1 mmol/L 3.5 - 5.1 mmol/L [facility] Sodium [Moles/Vol] 142 mmol/L 136 - 145 mmol/L [facility] Urea nitrogen [Mass/Vol] 26 mg/dL High 9 - 23 mg/dL [facility] C. DIFFICILE BY PCR WITH REF JOMAR TO EIAon 04-28-2024 C. DIFFICILE BY PCR WITH REFLEX TO EIA C. DIFFICILE TOXIN PCR Reference Not Detected Not Detected ORDER COMMENTS: C. difficile infection is unlikely to be present. Methodology: Real-time PCR Normal [facility] Comment on above: Performed By: #### L [id number], [id number] ####Digital Watch Assembler: VIVIAN PANTOJA ([id number])[address] C. difficile toxin genes STEPHANIE +probe Ql (Stl)on 04-28-2024 C. difficile toxin B tcdB gene STEPHANIE+probe Ql (Stl) Not detected Not Detected [facility] Interpretation and review of laboratory results Normal [facility] CBC W Auto Differential pane l (Bld)Ordered By: Esvin Shepard on 04-28-2024 Basophils (Bld) [#/Vol] 0 10*3/uL 0.0 - 0.2 10*3/uL [facility] Basophils/100 WBC (Bld) 0.1 % 0.0 - 2.0 % [facility] Eosinophils (Bld) [#/Vol] 0 10*3/uL 0.0 - 0.5 10*3/uL [facility] Eosinophils/100 WBC (Bld) 0.1 % 0.0 - 6.0 % [facility] Erythrocyte distribution width (RBC) [Ratio] 15.1 % High 11.5 - 15.0 % [facility] Hematocrit (Bld) [Volume fraction] 36.2 % 35.0 - 47.0 % [facility] Hemoglobin (Bld) [Mass/Vol] 11.3 g/dL Low 11.7 - 16.0 g/dL [facility] Immature granulocytes (Bld) [#/Vol] 0 10*3/uL NINF - 0.1 10*3/uL [facility] Immature granulocytes/100 WBC (Bld) 0.4 % 0.0 - 2.0 % [facility] Interpretation and review of laboratory results Abnormal [facility] IPF 9 [facility] Lymphocytes (Bld) [#/Vol] 1.9 10*3/uL 1.0 - 4.3 10*3/uL [facility] Lymphocytes/100 WBC (Bld) 19.9 % 15.0 - 45.0 % [facility] MCH (RBC) [Entitic mass] 28 pg 26.0 - 34.0 pg [facility] MCHC (RBC) [Mass/Vol] 31.2 % 30.5 - 36.0 % [facility] MCV (RBC) [Entitic vol] 89.6 fL 77.0 - 99.0 fL [facility] Monocytes (Bld) [#/Vol] 2.5 10*3/uL High 0.0 - 0.9 10*3/uL [facility] Monocytes/100 WBC (Bld) 25.9 % High 5.0 - 13.0 % [facility] Neutrophils (Bld) [#/Vol] 5.2 10*3/uL 1.8 - 7.5 10*3/uL [facility] Neutrophils/100 WBC (Bld) 53.6 % 38.0 - 82.0 % [facility] Nucleated RBC/100 WBC (Bld) [Ratio] 0 % [facility] Platelet mean volume (Bld) [Entitic vol] 13.5 fL High 9.0 - 12.7 fL [facility] Platelets (Bld) [#/Vol] 83 10*3/uL Low 140 - 440 10*3/uL [facility] RBC (Bld) [#/Vol] 4.04 10*6/uL 3.80 - 5.2 0 10*6/uL [facility] WBC (Bld) [#/Vol] 9.7 10*3/uL 3.6 - 10.7 10*3/uL [facility] CBC WITH AUTO DIFFERENTIALon 04-28-2024 Basophils (Bld) [#/Vol] 0.0 10*3/uL Normal 0.0-0.2 [facility] Comment on above: Performed By: #### L [id number] ####Digital Watch Assembler: VIVIAN [id number])[address] Basophils/100 WBC (Bld) 0.1 % Normal 0.0-2.0 [facility] Comment on above: Performed By: #### L [id number] ####[employer] Assembler: VIVIAN [id number])[address] Eosinophils (Bld) [#/Vol] 0.0 10*3/uL Normal 0.0-0.5 [facility] Comment on above: Performed By: #### L [id number] ####[employer] Watch Assembler: VIVIAN [id number])[facility])[address] [place] [address] Eosinophils/100 WBC (Bld) 0.1 % Normal 0.0-6.0 [facility] Comment on above: Performed By: #### L [id number] ####Digital Watch Assembler: VIVIAN PANTOJA ([phone])[facility])[address] [place] [address] Erythrocyte distribution width (RBC) [Ratio] 15.1 % High 11.5-15.0 [facility] Comment on above: Performed By: #### L [id number] ####Digital Watch Assembler: VIVIAN PANTOJA ([id number])[facility])[address] [place] [address] Hematocrit (Bld) [Volume fraction] 36.2 % Normal 35.0-47.0 [facility] Comment on above: Performed By: #### L [id number] ####Digital Watch Assembler: VIVIAN PANTOJA ([id number])[facility])[address] [place] [address] Hemoglobin (Bld) [Mass/Vol] 11.3 g/dL Low 11.7-16.0 [facility] Comment on above: Performed By: #### L [id number] ####Digital Watch Assembler: VIVIAN PANTOJA ([id number])[facility])[address] [place] [address] IMMATURE GRANS % 0.4 % Normal 0.0-2.0 [facility] Comment on above: Performed By: #### L [id number] ####Digital Watch Assembler: VIVIAN PANTOJA ([phone])[facility])[address] [place] [address] IMMATURE GRANS ABSOLUTE 0.0 10*3/uL Normal <0.1 [facility] Comment on above: Performed By: #### L [id number] ####Digital Watch Assembler: VIVIAN PANTOJA ([phone])[facility])[address] [place] [address] [place] IPF 9 Normal [facility] Comment on above: Performed By: #### L [id number] ####Digital Watch Assembler: VIVIAN PANTOJA ([id number])[facility])[address] [place] [address] Lymphocytes (Bld) [#/Vol] 1.9 10*3/uL Normal 1.0-4.3 [facility] Comment on above: Performed By: #### L [id number] ####Digital Watch Assembler: VIVIAN PANTOJA ([phone])[facility])[address] [place] [address] Lymphocytes/100 WBC (Bld) 19.9 % Normal 15.0-45.0 [facility] Comment on above: Performed By: #### L [id number] ####Digital Watch Assembler: VIVIAN PANTOJA ([id number])[facility])[address] [place] [address] MCH (RBC) [Entitic mass] 28.0 pg Normal 26.0-34.0 [facility] Comment on above: Performed By: #### L [id number] ####Digital Watch Assembler: VIVIAN PANTOJA ([phone])[facility])[address] [place] [address] MCHC 31.2 % Normal 30.5-36.0 [facility] Comment on above: Performed By: #### L [id number] ####Digital Watch Assembler: VIVIAN PANTOJA ([phone])[facility])[address] [place] [address] MCV (RBC) [Entitic vol] 89.6 fL Normal 77.0-99.0 [facility] Comment on above: Performed By: #### L [id number] ####Digital Watch Assembler: VIVIAN PANTOJA ([phone])[facility])[address] [place] [address] Monocytes (Bld) [#/Vol] 2.5 10*3/uL High 0.0-0.9 [facility] Comment on above: Performed By: #### L [id number] ####Digital Watch Assembler: VIVIAN [id number])[facility] ([facility])[address] [place] [address] Monocytes/100 WBC (Bld) 25.9 % High 5.0-13.0 [facility] Comment on above: Performed By: #### L [id number] ####Digital Watch Assembler: VIVIAN PANTOJA ([id number])[facility] ([facility])[address] [place] [address] NEUTROPHILS ABSOLUTE 5.2 10*3/uL Normal 1.8-7.5 [facility] Comment on above: Performed By: #### L [id number] ####Digital Watch Assembler: VIVIAN PANTOJA ([phone])[facility])[address] [place] [address] Neutrophils/100 WBC (Bld) 53.6 % Normal 38.0-82.0 [facility] Comment on above: Performed By: #### L [id number] ####Digital Watch Assembler: VIVIAN PANTOJA ([id number])[facility] ([facility])[address] [place] [address] NRBC 0.0 /100 WBCs Normal 0.0-2.0 [facility] Comment on above: Performed By: #### L [id number] ####[employer] Watch Assembler: VIVIAN PANTOJA ([phone])[facility] ([facility])[address] [place] [address] Platelet mean volume (Bld) [Entitic vol] 13.5 fL High 9.0-12.7 [facility] Comment on above: Performed By: #### L [id number] ####Digital Watch Assembler: VIVIAN PANTOJA ([phone])[facility] ([facility])[address] [place] [address] [place] Platelets (Bld) [#/Vol] 83 10*3/uL Low 140-440 [facility] Comment on above: Performed By: #### L [id number] ####Digital Watch Assembler: VIVIAN PANTOJA ([id number])[facility] ([facility])[address] [place] [address] [place] RBC (Bld) [#/Vol] 4.04 10*6/uL Normal 3.80-5.20 [facility] Comment on above: Performed By: #### L [id number] ####Digital Watch Assembler: VIVIAN PANTOJA ([phone])[facility])[address] [place] [address] WBC (Bld) [#/Vol] 9.7 10*3/uL Normal 3.6-10.7 [facility] Comment on above: Performed By: #### L [id number] ####Digital Watch Assembler: VIVIAN PANTOJA ([phone])[facility] ([facility])[address] [place] [address] COMPLETE URINALYSISon 2024 BACTERIA (#/HPF) IN URINE Loaded Abnormal Negative [facility] Comment on above: Performed By: #### L [id number] ####Digital Watch Assembler: VIVIAN PANTOJA ([id number])[facility])[address] [place] [address] BILIRUBIN, TOTAL PRESENCE IN URINE Negative Normal Negative [facility] Comment on above: Performed By: #### L [id number] ####Digital Watch Assembler: VIVIAN PANTOJA ([id number])[facility])[address] [place] [address] Clarity (U) Turbid Abnormal Clear [facility] Comment on above: Performed By: #### L [id number] ####Digital Watch Assembler: VIVIAN PANTOJA ([id number])[facility])[address] [place] [address] Color (U) Yellow Normal Lt. Yellow [facility] Comment on above: Performed By: #### L [id number] ####Digital Watch Assembler: VIVIAN PANTOJA ([id number])[facility])[address] [place] [address] GLUCOSE (MG/DL) IN URINE Normal Normal Normal (<70) [facility] Comment on above: Performed By: #### L [id number] ####Digital Watch Assembler: VIVIAN PANTOJA ([id number])[facility] [facility])[address] [place] [address] HEMOGLOBIN PRESENCE IN URINE Negative Normal Negative [facility] Comment on above: Performed By: #### L [id number] ####Digital Watch Assembler: VIVIAN PANTOJA ([phone])[facility] ([facility])[address] [place] [address] HYALINE CASTS (#/LPF) IN URINE SEDIMENT BY MICROSCOPY 26-50 Abnormal Negative [facility] Comment on above: Performed By: #### L [id number] ####Digital Watch Assembler: VIVIAN PANTOJA ([id number])[facility] ([facility])[address] [place] [address] Ketones Ql (U) Negative Normal Negative [facility] Comment on above: Performed By: #### L [id number] ####Digital Watch Assembler: VIVIAN PANTOJA ([id number])[facility] ([facility])[address] [place] [address] LEUKOCYTE ESTERASE PRESENCE IN URINE BY TEST STRIP Negative Normal Negative [facility] Comment on above: Performed By: #### L [id number] ####Digital Watch Assembler: VIVIAN PANTOJA ([id number])[facility] ([facility])[address] [place] [address] MUCUS (#/LPF) IN URINE SEDIMENT Few Normal Negative [facility] Comment on above: Performed By: #### L [id number] ####Digital Watch Assembler: VIVIAN PANTOJA ([phone])[facility] ([facility])[address] [place] [address] NITRITE PRESENCE IN URINE Negative Normal Negative [facility] Comment on above: Performed By: #### L [id number] ####Digital Watch Assembler: VIVIAN PANTOJA ([id number])[facility] ([facility])[address] [place] [address] pH (U) 5.0 [pH] Normal 5.0-8.0 [facility] Comment on above: Performed By: #### L [id number] ####Digital Watch Assembler: VIVIAN PANTOJA ([id number])[facility] ([address] Protein (U) [Mass/Vol] 50 mg/dL Abnormal Negative [facility] Comment on above: Performed By: #### L [id number] ####Digital Watch Assembler: VIVIAN PANTOJA ([phone])[facility])[address] [place] [address] RBC (#/HPF) IN URINE SEDIMENT 0-2 Normal 0-2 [facility] Comment on above: Performed By: #### L [id number] ####Digital Watch Assembler: VIVIAN PANTOJA ([id number])[facility] ([facility])[address] [place] [address] Specific gravity (U) [Rel density] 1.023 Normal 1.005-1.030 [facility] Comment on above: Performed By: #### L [id number] ####Digital Watch Assembler: VIVIAN PANTOJA ([phone])[facility] ([facility])[address] [place] [address] SQUAMOUS EPITHELIAL CELLS (#/HPF) IN URINE SEDIMENT 3-5 Normal 3-5 [facility] Comment on above: Performed By: #### L [id number] ####Digital Watch Assembler: VIVIAN PANTOJA ([id number])[facility])[address] [place] [address] UROBILINOGEN (MG/DL) IN URINE Normal Normal Normal (0-1) [facility] Comment on above: Performed By: #### L [id number] ####Digital Watch Assembler: VIVIAN PANTOJA ([id number])[facility])[address] [place] [address] WBC (LEUKOCYTE) (#/HPF) IN URINE SEDIMENT 3-5 Normal 0-5 [facility] Comment on above: Performed By: #### L [id number] ####Digital Watch Assembler: VIVIAN PANTOJA ([id number])[facility])[address] [place] [address] [place] Consulton 04-28-2024 Consult Normal [facility] Consult Normal [facility] ECG 12-LEADon 04-28-2024 ECG 12-LEAD IMPRESSION: Atrial fibrillation BRADYCARDIA WITH IRREGULAR RATE Low voltage, extremity leads Repol abnrm suggests ischemia, anterolateral Electronically Signed On 04-28-2024 06:19:58 EST by Olman Torre Normal [facility] ED Nursing Noteon 04-28-2024 ED Nursing Note Patient's meal tray ordered for room on 4N. Normal [facility] ED Nursing Note Pt given zofran PO a nd cranberry juice per request Normal [facility] ED Nursing Note Pt has thrown up the one bite of breakfast she ate. Pt is now nauseous and does not want to eat anymore. Pt believes she may be nauseous due to her medications. Pt was able to drink and keep down OJ Normal [facility] ED Nursing Note Pt is resting comfor tably in bed after being assisted to bedside commode. Pt urinated a small amount into hat and sent urine sample. Pt A&O x4, vitals WNL, breathing unlabored and chest rise equal. Pt denied any further needs at this time Normal [facility] ED Nursing Note Ordered pt breakfast Normal [facility] GASTROINTESTINAL PCR PANELon 04-28-2024 GASTROINTESTINAL PCR PANEL Normal [facility] Comment on above: Performed By: #### L [id number], [id number] ####Digital Watch Assembler: VIVIAN PANTOJA ([id number])[facility] ([facility])[address] [place] [address] Gastrointestinal pathogens p linda STEPHANIE+probe (Stl)Ordered By: Wilfred Bishop on 04-28-2024 Adenovirus F 40/41 Not detected Not Detected [facility] Astrovirus Not detected Not Detected [facility] Campylobacter Not detected Not Detected [facility] Cryptosporidium Not detected Not Detected [facility] Cyclospora cayetanensis Not detected Not Detected [facility] Entamoeba histolytica Not detected Not Detected [facility] Enterotoxigenic E coli (ETEC) Not detected Not Detected [facility] Giardia lamblia Not detected Not Detected [facility] Interpretation and review of laboratory results Normal [facility] Norovirus GI/GII Not detected Not Detected [facility] Plesiomonas shigelloides Not detected Not Detected [facility] Rotavirus A Not detected Not Detected [facility] Salmonella Not detected Not Detected [facility] Sapovirus Not detected Not Detected [facility] Shiga toxin-producing E coli (STEC) Not detected Not Detected [facility] Shigella/Enteroinvasiv e E coli (EIEC) Not detected Not Detected [facility] Vibrio cholerae Not detected Not Detected [facility] Vibrio species Not detected Not Detected [facility] Yersinia enterocolitica Not detected Not Detected [facility] HIGH SENSITIVITY TROPONIN, S ERIAL, THIRD TESTon 04-28-2024 4H TROPONIN HS (SERIAL 3RD TROPONIN) 35 ng/L High <=14 [facility] Comment on above: Result Comment: Risi ng or falling troponin delta below 2 ng/L as compared to 2h troponin value suggeststhat acute cardiac injury is unlikely. Performed By: #### L [id number] ####Digital Watch Assembler: VIVIAN PANTOJA ([id number])[facility] ([facility])[address] [place] [address] LEGIONELLA AND STREPTOCOCCUS URINE ANTIGENon 04-28-2024 LEGIONELLA AND STREPTOCOCCUS URINE ANTIGEN Normal [facility] Comment on above: Performed By: #### L [id number] ####Digital Watch Assembler: VIVIAN PANTOJA ([id number])[facility] ([facility])[address] [place] [address] Laboratory - Chemistry and C hemistry - challengeon 04-28-2024 TSH Qn 1.29 m[IU]/L [facility] Sodium (24H U) [Mass/Vol] mmol/L mmol/L [facility] NT PRO BNPon 04-28-2024 Natriuretic peptide B (Bld) [Mass/Vol] 8620 pg/mL High <125 [facility] Comment on above: Performed By: #### L [id number], [id number] ####Digital Watch Assembler: VIVIAN PANTOJA ([id number])[facility] ([facility])[address] [place] [address] Natriuretic peptide B [Mass/ Vol]on 04-28-2024 Interpretation and review of laboratory results Abnormal [facility] Natriuretic peptide B (Bld) [Mass/Vol] 8620 pg/mL High NINF - 125 pg/mL [facility] No Panel Informationon 04-28 Extra Tube Hold for add-ons. [facility] CREATININE, URINE 290.1 mg/dL High 47.0 - 110 .0 mg/dL [facility] [employer] Interpretation and review of laboratory results Abnormal [facility] SODIUM, URINE, FRACTIONAL EXCRETION [facility] SODIUM, URINE, TUBULAR REABSORPTION [facility] [employer] CV EPIPHANY [facility] 4h Troponin HS (Serial 3rd Troponin) 35 ng/L High NINF - 14 ng/L [facility] Interpretation and review of laboratory results Abnormal [facility] No Panel InformationOrdered By: Olman Torre on 04-28-2024 P Ackerman 0 degrees [place] Work Phone: AK Interval 0 ms [employer] Phone: QRS Ackerman 22 degrees [place] Work Phone: QRSD Interval 84 ms [employer] Phone: QT Interval 335 ms [employer] Phone: QTC Interval 309 ms [employer] Phone: T Wave Ackerman 231 degrees [employer] Phone: [employer] Phone: [phone] Nursing Noteon 04-28-2024 Nursing Note Patient came up from ED with tourniquet still in place on her LUE. Tourniquet removed. Reddish/purple marking noted on LUE. Patient denying any pain or discomfort. Normal [facility] Progress Noteon 04-28-2024 Progress Note Normal [facility] SODIUM, URINE, RANDOMon 04-15 CREATININE, URINE 290.1 mg/dL High 47.0-110.0 [facility] Comment on above: Performed By: #### L [id number] ####Digital Watch Assembler: VIVIAN PANTOJA ([id number])[facility] ([facility])[address] [place] [address] SODIUM, URINE <20 Normal [facility] Comment on above: Performed By: #### L [id number] ####Digital Watch Assembler: VIVIAN PANTOJA ([id number])[facility] ([facility])[address] [place] [address] SODIUM, URINE, FRACTIONAL EXCRETION <0.1 Normal [facility] Comment on above: Performed By: #### L [id number] ####Digital Watch Assembler: VIVIAN PANTOJA ([id number])[facility])[address] [place] [address] SODIUM, URINE, TUBULAR REABSORPTION >1.0 Normal [facility] Comment on above: Performed By: #### L [id number] ####Digital Watch Assembler: VIVIAN PANTOJA ([id number])[facility])[address] [place] [address] THYROID STIMULATING HORMONEo n 04-28-2024 THYROID STIMULATING HORMONE 1.29 uIU/mL Normal 0.35-4.94 [facility] Comment on above: Performed By: #### L [id number] ####Digital Watch Assembler: VIVIAN PANTOJA ([id number])[facility])[address] [place] [address] TSH Qnon 04-28-2024 Interpretation and review of laboratory results Normal [facility] URINE CULTUREon 04-28-2024 Bacteria identified Cx Nom (U) Normal [facility] Comment on above: Performed By: #### L [id number] ####Digital Watch Assembler: VIVIAN PANTOJA ([id number])[facility])[address] [place] [address] [place] Kidneyon 04-28-2024 [facility] Radiology Study observation (narrative) [facility] US KidneyOrdered By: Rosalia Leiva on 04-28-2024 [facility] Work Phone: US RENAL COMPLETEon 04-28-19 US RENAL COMPLETE Normal [facility] Urinalysis complete panel (U )Ordered By: Shellie Navas on 04-28-2024 Bacteria LM.HPF (Urine sed) [#/Area] Loaded Abnormal Negative /HPF [facility] Bilirubin Ql (U) Negative Negative mg/dL [facility] Health Clarity (U) Turbid Abnormal Clear [facility] Health Color (U) Yellow Lt. Yellow [facility] Epithelial cells.squamous LM.HPF (Urine sed) [#/Area] 3-5 [facility] Glucose Ql (U) Normal Normal (<70) mg/dL [facility] Hemoglobin Ql (U) Negative Negative mg/dL [facility] Hyaline casts Auto (Urine sed) [#/Area] 26-50 Abnormal Negative /LPF [facility] Interpretation and review of laboratory results Abnormal [facility] Ketones (U) [Mass/Vol] Negative Negat ute mg/dL [facility] Leukocyte esterase Test strip Ql (U) Negative Negative Ghada/uL [facility] Mucus LM.HPF (Urine sed) [#/Area] Few Negative /LPF [facility] Nitrite Ql (U) Negative Negative [facility] pH (U) 5.0 [pH] 5.0 - 8.0 pH [facility] Protein (U) [Mass/Vol] 50 mg/dL Abnormal Negative Self [facility] RBC LM.HPF (Urine sed) [#/Area] 0-2 [facility] Specific gravity (U) [Rel density] 1.023 1.005 - 1.030 [facility] Urobilinogen (U) [Mass/Vol] Normal Normal (0-1) mg/dL [facility] WBC LM.HPF (Urine sed) [#/Area] 3-5 [facility] Vital signsOrdered By: Luciano Torre on 04-28-2024 Heart rate 51 /min bpm [facility] Work Phone: 36on 04-27-2024 36 Placed call to shari nt. Unable to reach them by phone to discuss lab results. Left detailed message to return call to discuss results. Please release information to patient Normal [facility] 36 Normal [facility] 36 Normal [facility] 36 Normal [facility] BASIC METABOLIC PANELon 04-15 Anion gap [Moles/Vol] 8 mmol/L Normal - [facility] Comment on above: Performed By: #### L [id number] ####Digital Watch Assembler: VIVIAN PANTOJA ([id number])[facility] ([facility])[address] [place] [address] Calcium [Mass/Vol] 9.4 mg/dL Normal 8.8-10.0 [facility] Comment on above: Performed By: #### L [id number] ####Digital Watch Assembler: VIVIAN PANTOJA ([phone])[facility] ([facility])[address] [place] [address] [place] Chloride [Moles/Vol] 115 mmol/L High 98-107 [facility] Comment on above: Performed By: #### L [id number] ####Digital Watch Assembler: VIVIAN PANTOJA ([id number])[facility] ([facility])[address] [place] [address] [place] CO2 [Moles/Vol] 20 mmol/L Low 23-31 [facility] Comment on above: Performed By: #### L [id number] ####Digital Watch Assembler: VIVIAN PANTOJA ([id number])[facility] ([facility])[address] [place] [address] [place] Creatinine [Mass/Vol] 1.27 mg/dL High 0.57-1.11 [facility] Comment on above: Performed By: #### L [id number] ####Digital Watch Assembler: VIVIAN PANTOJA ([id number])[facility] ([facility])[address] [place] [address] [place] GLOMERULAR FILTRATION RATE ML/MIN/1.73 SQ M.PREDICTED 44.7 mL/min/1.73m*2 Low >60.0 [facility] Comment on above: Result Comment: Calc ulation based on the Chronic Kidney Disease Epidemiology Collaboration (CKD-EPI) equation refit without adjustment for race Performed By: #### L [id number] ####Digital Watch Assembler: VIVIAN PANTOJA ([id number])[facility] ([facility])[address] [place] [address] [place] Glucose [Mass/Vol] 104 mg/dL Normal 82-115 [facility] Comment on above: Performed By: #### L [id number] ####Digital Watch Assembler: VIVIAN PANTOJA ([id number])[facility] ([facility])[address] [place] [address] [place] Potassium [Moles/Vol] 4.2 mmol/L Normal 3.5-5.1 [facility] Comment on above: Result Comment: [facility] potassium values may be up to 0.5 mmol/L lower than serum values. Performed By: #### L [id number] ####Digital Watch Assembler: VIVIAN PANTOJA ([phone])[facility] ([facility])[address] [place] [address] Sodium [Moles/Vol] 143 mmol/L Normal 136-145 [facility] Comment on above: Performed By: #### L [id number] ####Digital Watch Assembler: VIVIAN PANTOJA ([id number])[facility] ([facility])[address] [place] [address] Urea nitrogen [Mass/Vol] 25 mg/dL High 9-23 [facility] Comment on above: Performed By: #### L [id number] ####Digital Watch Assembler: VIVIAN PANTOJA ([id number])[facility] ([facility])[address] [place] [address] Basic metabolic 1998 panelon 04-27-2024 Anion gap [Moles/Vol] 8 mmol/L 3 - 13 mmol/L [facility] Calcium [Mass/Vol] 9.4 mg/dL 8.8 - 10. 0 mg/dL [facility] Chloride [Moles/Vol] 115 mmol/L High 98 - 10 7 mmol/L [facility] CO2 [Moles/Vol] 20 mmol/L Low 23 - 31 mmol/L [facility] Creatinine [Mass/Vol] 1.27 mg/dL High 0.57 - 1.11 mg/dL [facility] GFR/1.73 sq M.predicted (S/P/Bld) [Vol rate/Area] 44.7 mL/min Low - PINF [facility] Comment on above: Calculation based on the Chronic Kidney Disease Epidemiology Collaboration (CKD-EPI) equation refit without adjustment for race Glucose [Mass/Vol] 104 mg/dL 82 - 115 mg/dL [facility] Interpretation and review of laboratory results Abnormal [facility] Potassium [Moles/Vol] 4.2 mmol/L 3.5 - 5.1 mmol/L [facility] Comment on above: Plasma potassium imer ues may be up to 0.5 mmol/L lower than serum values. Sodium [Moles/Vol] 143 mmol/L 136 - 145 mmol/L [facility] Urea nitrogen [Mass/Vol] 25 mg/dL High 9 - 23 mg/dL [facility] CATECHOLAMINES,FRAC URINEon 04-27-2024 CATECHOLAMINES, URINE INTERPRETATION See Note Normal [facility] Comment on above: Result Comment: TEST INFORMATION: [...] gender-specific referenceintervals for this test in the [facility] Test Directory(PingMe).This test was developed and its performance characteristicsdetermined by [employer]. It has not been cleared orapproved by the [place] Food and Drug Administration. This test wasperformed in a CLIA certified laboratory and is intended forclinical purposes. Performed By: #### L [id number] ####[facility] ([facility])[address] [place] [address] [place] DOPAMINE, URINE - PER 24H 100 ug/d Normal 71-485 [facility] Comment on above: Result Comment: REFE RENCE INTERVAL: Dopamine, Urine - ug/dAccess complete set of age- and/or gender-specific referenceintervals for this test in the [employer] [facility] Test Directory(PingMe). Performed By: #### L [id number] ####[facility] ([facility])[address] [place] [address] [facility] DOPAMINE, URINE - PER VOLUME 322 ug/L Normal [facility] Comment on above: Performed By: #### L [id number] ####[facility] ([facility])[address] [place] [address] [facility] DOPAMINE, URINE - RATIO TO BANKRUPTCY PARALEGAL 177 ug/g BANKRUPTCY PARALEGAL Normal 0-250 [facility] Comment on above: Performed By: #### L [id number] ####[facility] ([facility])[address] [place] [address] [place] EPINEPHRINE, URINE - PER 24H 1 ug/d Normal 1-14 [facility] Comment on above: Result Comment: REFE RENCE INTERVAL: Epinephrine, Urine - ug/dAccess complete set of age- and/or gender-specific referenceintervals for this test in the [employer] [facility] Test Directory(PingMe). Performed By: #### L [id number] ####[facility] ([facility])[address] [place] [address] [place] EPINEPHRINE, URINE - PER VOLUME 2 ug/L Normal [facility] Comment on above: Performed By: #### L [id number] ####[facility] ([facility])[address] EPINEPHRINE, URINE - RATIO TO BANKRUPTCY PARALEGAL 1 ug/g BANKRUPTCY PARALEGAL Normal 0-20 [facility] Comment on above: Performed By: #### L [id number] ####[facility] ([facility])[address] [place] [address] [place] NOREPINEPHRINE, URINE - PER 24H 15 ug/d Normal 14-120 [facility] Comment on above: Result Comment: REFE RENCE INTERVAL: Norepinephrine, Urine - ug/dAccess complete set of age- and/or gender-specific referenceintervals for this test in the [employer] [facility] Test Directory(PingMe). Performed By: #### L [id number] ####[facility] ([facility])[address] [place] [address] [place] NOREPINEPHRINE, URINE - PER VOLUME 49 ug/L Normal [facility] Comment on above: Performed By: #### L [id number] ####[facility] ([facility])[address] [place] [address] [place] NOREPINEPHRINE, URINE - RATIO TO BANKRUPTCY PARALEGAL 27 ug/g BANKRUPTCY PARALEGAL Normal 0-45 [facility] Comment on above: Performed By: #### L [id number] ####[facility] ([facility])[address] [place] [address] [facility] CBC W Auto Differential pane l (Bld)Ordered By: Melissa Denson on 04-27-2024 Erythrocyte distribution width (RBC) [Ratio] 15 % 11.5 - 15.0 % [facility] Hematocrit (Bld) [Volume fraction] 38.6 % 35.0 - 47.0 % [facility] Hemoglobin (Bld) [Mass/Vol] 11.6 g/dL Low 11.7 - 16.0 g/dL [facility] Interpretation and review of laboratory results Abnormal [facility] IPF 12 [facility] MCH (RBC) [Entitic mass] 27.2 pg 26.0 - 34.0 pg [facility] MCHC (RBC) [Mass/Vol] 30.1 % Low 30.5 - 36.0 % [facility] MCV (RBC) [Entitic vol] 90.4 fL 77.0 - 99.0 fL [facility] [employer] Platelet mean volume (Bld) [Entitic vol] 13.4 fL High 9.0 - 12.7 fL [facility] Platelets (Bld) [#/Vol] 93 10*3/uL Low 140 - 440 10*3/uL [facility] RBC (Bld) [#/Vol] 4.27 10*6/uL 3.80 - 5.2 0 10*6/uL [facility] WBC (Bld) [#/Vol] 13.5 10*3/uL High 3.6 - 10.7 10*3/uL [facility] CBC WITH AUTO DIFFERENTIALon 04-27-2024 Erythrocyte distribution width (RBC) [Ratio] 15.0 % Normal 11.5-15.0 [facility] Comment on above: Performed By: #### L [id number], [id number] ####[employer]er: VIVIAN PANTOJA ([id number])[facility] ([facility])[address] [place] [address] Hematocrit (Bld) [Volume fraction] 38.6 % Normal 35.0-47.0 [facility] Comment on above: Performed By: #### L [id number], [id number] ####[employer]er: VIVIAN PANTOJA ([id number])[facility] ([address] Hemoglobin (Bld) [Mass/Vol] 11.6 g/dL Low 11.7-16.0 [facility] Comment on above: Performed By: #### Manpreet [id number], [id number] ####[employer]er: VIVIAN PANTOJA ([id number])[facility])[address] [place] [address] IPF 12 Normal [facility] Comment on above: Performed By: #### Manpreet SAINI, [id number] ####[employer]er: VIVIAN PANTOJA ([id number])[facility])[address] [place] [address] MCH (RBC) [Entitic mass] 27.2 pg Normal 26.0-34.0 [facility] Comment on above: Performed By: #### Manpreet SAINI, [id number] ####[employer]: VIVIAN PANTOJA ([id number])[facility])[address] [place] [address] MCHC 30.1 % Low 30.5-36.0 [facility] Comment on above: Performed By: #### Manpreet SAINI, [id number] ####[employer]: VIVIAN PANTOJA ([id number])[facility])[address] [place] [address] MCV (RBC) [Entitic vol] 90.4 fL Normal 77.0-99.0 [facility] Comment on above: Performed By: #### Manpreet SAINI, [id number] ####[employer] As[employer]er: VIVIAN PANTOJA ([id number])[facility])[address] [place] [address] Platelet mean volume (Bld) [Entitic vol] 13.4 fL High 9.0-12.7 [facility] [facility] Comment on above: Performed By: #### Manpreet [id number], [id number] ####Digital Watch Assembler: VIVIAN PANTOJA ([phone])[facility])[address] [place] [address] Platelets (Bld) [#/Vol] 93 10*3/uL Low 140-440 [facility] Comment on above: Performed By: #### L [id number], [id number] ####Digital Watch Assembler: VIVIAN PANTOJA ([phone])[facility] ([facility])[address] [place] [address] RBC (Bld) [#/Vol] 4.27 10*6/uL Normal 3.80-5.20 [facility] Comment on above: Performed By: #### Manpreet [id number], [id number] ####Digital Watch Assembler: VIVIAN PANTOJA ([phone])[facility] ([facility])[address] [place] [address] WBC (Bld) [#/Vol] 13.5 10*3/uL High 3.6-10.7 [facility] Comment on above: Performed By: #### Manpreet [id number], [id number] ####Digital Watch Assembler: VIVIAN PANTOJA ([phone])[facility] ([facility])[address] [place] [address] COMPREHENSIVE METABOLIC PANE Amaury 04-27-2024 Albumin [Mass/Vol] 4.0 g/dL Normal 3.4-4.8 [facility] Comment on above: Performed By: #### L AB17, [id number], LAB61, [id number], LAB99 ####Digital Watch Assembler: VIVIAN PANTOJA ([id number])[facility] ([facility])[address] [place] [address] ALP [Catalytic activity/Vol] 60 U/L Normal 40-150 [facility] Comment on above: Performed By: #### L AB17, [id number], LAB61, [id number], LAB99 ####Digital Watch Assembler: VIVIAN PANTOJA ([id number])[facility])[address] [place] [address] ALT [Catalytic activity/Vol] 10 U/L Normal <30 [facility] Comment on above: Performed By: #### L AB17, [id number], LAB61, [id number], LAB99 ####Digital Watch Assembler: VIVIAN PANTOJA ([id number])[facility] ([facility])[address] [place] [address] Anion gap [Moles/Vol] 8 mmol/L Normal 3-13 [facility] Comment on above: Performed By: #### L AB17, [id number], LAB61, [id number], LAB99 ####Digital Watch Assembler: VIVIAN PANTOJA ([phone])[facility] ([facility])[address] [place] [address] AST [Catalytic activity/Vol] 12 U/L Normal <34 [facility] Comment on above: Performed By: #### L AB17, [id number], LAB61, [id number], LAB99 ####Digital Watch Assembler: VIVIAN PANTOJA ([phone])[facility] ([facility])[address] [place] [address] Bilirubin [Mass/Vol] 0.7 mg/dL Normal <1.2 [facility] Comment on above: Performed By: #### L AB17, [id number], LAB61, [id number], LAB99 ####Digital Watch Assembler: VIVIAN PANTOJA ([phone])[facility] ([facility])[address] [place] [address] Calcium [Mass/Vol] 9.4 mg/dL Normal 8.8-10.0 [facility] Comment on above: Performed By: #### L AB17, [id number], LAB61, [id number], LAB99 ####Digital Watch Assembler: VIVIAN PANTOJA ([phone])[facility] ([facility])[address] [place] [address] Chloride [Moles/Vol] 114 mmol/L High 98-107 [facility] Comment on above: Performed By: #### L AB17, [id number], LAB61, [id number], LAB99 ####Digital Watch Assembler: VIVIAN PANTOJA ([phone])[facility])[address] [place] [address] CO2 [Moles/Vol] 20 mmol/L Low 23-31 [facility] Comment on above: Performed By: #### L AB17, [id number], LAB61, [id number], LAB99 ####Digital Watch Assembler: VIVIAN PANTOJA ([phone])[facility])[address] [place] [address] Creatinine [Mass/Vol] 1.84 mg/dL High 0.57-1.11 [facility] Comment on above: Performed By: #### L AB17, [id number], LAB61, [id number], LAB99 ####Digital Watch Assembler: VIVIAN PANTOJA ([phone])[facility] ([facility])[address] [place] [address] [place] GLOMERULAR FILTRATION RATE ML/MIN/1.73 SQ M.PREDICTED 28.7 mL/min/1.73m*2 Low >60.0 [facility] Comment on above: Result Comment: Calc ulation based on the Chronic Kidney Disease Epidemiology Collaboration (CKD-EPI) equation refit without adjustment for race Performed By: #### Manpreet AB17, [id number], LAB61, [id number], LAB99 ####Digital Watch Assembler: VIVIAN PANTOJA ([id number])[facility])[address] [place] [address] [place] Glucose [Mass/Vol] 134 mg/dL High 82-115 [facility] Comment on above: Performed By: #### L AB17, [id number], LAB61, [id number], LAB99 ####Digital Watch Assembler: VIVIAN PANTOJA ([id number])[facility])[address] [place] [address] [place] Potassium [Moles/Vol] 3.7 mmol/L Normal 3.5-5.1 [facility] Comment on above: Result Comment: [facility] potassium values may be up to 0.5 mmol/L lower than serum values. Performed By: #### L AB17, [id number], LAB61, [id number], LAB99 ####Digital Watch Assembler: VIVIAN PANTOJA ([phone])[facility])[address] [place] [address] Protein [Mass/Vol] 6.1 g/dL Low 6.4-8.3 [facility] Comment on above: Performed By: #### L AB17, [id number], LAB61, QRE976, LAB99 ####Digital Watch Assembler: VIVIAN PANTOJA ([id number])[facility])[address] [place] [address] Sodium [Moles/Vol] 142 mmol/L Normal 136-145 [facility] Comment on above: Performed By: #### L AB17, [id number], LAB61, [id number], LAB99 ####Digital Watch Assembler: VIVIAN PANTOJA ([phone])[facility])[address] [place] [address] Urea nitrogen [Mass/Vol] 27 mg/dL High 9-23 [facility] Comment on above: Performed By: #### L AB17, [id number], LAB61, [id number], LAB99 ####Digital Watch Assembler: VIVIAN PANTOJA ([id number])[facility])[address] [place] [address] CORTISOLon 04-27-2024 CORTISOL 11.4 ug/dL Normal 3.7-19.4 [facility] Comment on above: Result Comment: ORDE R COMMENTS:Before 10am 4.5-22.7 ug/dLAfter 5pm 1.7-14.1 ug/dL Performed By: #### L AB17, [id number], LAB61, [id number], LAB99 ####Digital Watch Assembler: VIVIAN PANTOJA ([phone])[facility])[address] [place] [address] CT ABDOMEN PELVIS WO IV CONT RASTon 04-27-2024 CT ABDOMEN PELVIS WO IV CONTRAST Normal [facility] CT Abdomen and Pelvis WO con traston 04-27-2024 [facility] RADIOLOGY SYSTEM [facility] Radiology Study observation (narrative) [facility] CT Abdomen and Pelvis WO con trastOrdered By: Selma Azevedo on 04-27-2024 [facility] [employer] Work Phone: Comprehensive metabolic 1998 panelon 04-27-2024 Albumin [Mass/Vol] 4 g/dL 3.4 - 4.8 g/dL [facility] ALP [Catalytic activity/Vol] 60 U/L 40 - 150 U/L [facility] ALT [Catalytic activity/Vol] 10 U/L NINF - 30 U/L [facility] Anion gap [Moles/Vol] 8 mmol/L 3 - 13 mmol/L [facility] AST [Catalytic activity/Vol] 12 U/L NINF - 34 U/L [facility] Bilirubin [Mass/Vol] 0.7 mg/dL NINF - 1.2 mg/dL [facility] Calcium [Mass/Vol] 9.4 mg/dL 8.8 - 10. 0 mg/dL [facility] Chloride [Moles/Vol] 114 mmol/L High 98 - 10 7 mmol/L [facility] CO2 [Moles/Vol] 20 mmol/L Low 23 - 31 mmol/L [facility] Creatinine [Mass/Vol] 1.84 mg/dL High 0.57 - 1.11 mg/dL [facility] GFR/1.73 sq M.predicted (S/P/Bld) [Vol rate/Area] 28.7 mL/min Low - PINF [facility] Glucose [Mass/Vol] 134 mg/dL High 82 - 115 mg/dL [facility] Interpretation and review of laboratory results Abnormal [facility] Potassium [Moles/Vol] 3.7 mmol/L 3.5 - 5.1 mmol/L [facility] Protein [Mass/Vol] 6.1 g/dL Low 6.4 - 8.3 g/dL [facility] Sodium [Moles/Vol] 142 mmol/L 136 - 145 mmol/L [facility] Urea nitrogen [Mass/Vol] 27 mg/dL High 9 - 23 mg/dL [facility] DIGOXINon 04-27-2024 Digoxin [Mass/Vol] 2.0 ng/mL Normal 0.8-2.0 [facility] Comment on above: Result Comment: LEOBARDO Gill COMMENTS:Toxicity seen at concentrations >2.0 ng/mL Performed By: #### L AB23 ####Digital Watch Assembler: VIVIAN PANTOJA ([phone])[facility] ([address] Digoxin [Mass/Vol] 2.4 ng/mL High 0.8-2.0 [facility] Comment on above: Result Comment: LEOBARDO Gill COMMENTS:Toxicity seen at concentrations >2.0 ng/mL Performed By: #### L AB23 ####Digital Watch Assembler: VIVIAN PANTOJA ([phone])[facility]ENTER[facility]ess[facility] ([facility])[address] [place] [address] Digoxin levelon 04-27-2024 Digoxin [Mass/Vol] 2.4 ng/mL High 0.8 - 2.0 ng/mL [facility] Interpretation and review of laboratory results Abnormal [facility] Toxicity seen at concentrations >2.0 ng/mL [facility] ECG 12 lead - CLINIC PERFORM EDon 04-27-2024 [facility] ED Provider Noteon ED Provider Note Normal [facility] HIGH SENSITIVITY TROPONIN, S ERIAL BASELINEon 04-27-2024 TROPONIN HS SERIAL BASELINE 40 ng/L High <=14 [facility] Comment on above: Result Comment: In i ndividuals presenting with symptoms > 2h, a baseline troponin <= 5 ng/L suggests acutecardiac injury is unlikely and further serial testing is generally not indicated. Performed By: #### L AB17, [id number], LAB61, [id number], LAB99 ####Digital Watch Assembler: VIVIAN PANTOJA ([phone])[facility] ([facility])[address] [place] [address] HIGH SENSITIVITY TROPONIN, S ERIAL, SECOND TESTon 04-27-2024 2H TROPONIN HS (SERIAL 2ND TROPONIN) 37 ng/L High <=14 [facility] Comment on above: Result Comment: Risi ng or falling troponin delta between 2 ??? 15 ng/L as compared to baseline value requires a 3rd serial troponin Performed By: #### L [id number] ####Digital Watch Assembler: VIVIAN PANTOJA ([phone])[facility])[address] [place] [address] LIPASEon 04-27-2024 Lipase [Catalytic activity/Vol] 31 U/L Normal <55 [facility] Comment on above: Performed By: #### L AB17, [id number], LAB61, [id number], LAB99 ####Digital Watch Assembler: VIVIAN PANTOJA ([phone])[facility] ([facility])[address] [place] [address] Laboratory - Chemistry and C hemistry - challengeon 04-27-2024 Cortisol [Mass/Vol] 11.4 ug/dL 3.7 - 19 .4 ug/dL [facility] Magnesium [Mass/Vol] 1.7 mg/dL 1.6 - 2 .6 mg/dL [facility] Lipase [Catalytic activity/Vol] 31 U/L NINF - 55 U/L [facility] Laboratory - Drug toxicology on 04-27-2024 Digoxin [Mass/Vol] 2 ng/mL 0.8 - 2.0 ng/mL [facility] Laboratory - Hematology and Cell countson 04-27-2024 Lymphocytes (Bld) [#/Vol] 3.1 10*3/uL 1.0 - 4.3 10*3/uL [facility] Lymphocytes/100 WBC (Bld) 23 % 15 - 45 % [facility] Monocytes (Bld) [#/Vol] 2.2 10*3/uL High 0.0 - 0.9 10*3/uL [facility] Monocytes/100 WBC (Bld) 16 % High 5 - 13 % [facility] Neutrophils (Bld) [#/Vol] 8.4 10*3/uL High 1.8 - 7.5 10*3/uL [facility] Ovalocytes LM Ql (Bld) Slight Abnormal (none) [facility] Poikilocytosis LM Ql (Bld) Slight Abnormal (none) [facility] RBC morphology finding Nom (Bld) abnormal [facility] Segmented neutrophils/100 WBC (Bld) 62 % 38 - 82 % [facility] Lipase [Catalytic activity/V ol]on 04-27-2024 Interpretation and review of laboratory results Normal [facility] MAGNESIUMon 04-27-2024 Magnesium [Mass/Vol] 1.7 mg/dL Normal 1.6-2.6 [facility] Comment on above: Result Comment: LEOBARDO Gill COMMENTS:Higher values can be expected in females during menses. Performed By: #### L AB17, [id number], LAB61, [id number], LAB99 ####Digital Watch Assembler: VIVIAN PANTOJA ([phone])[facility] ([facility])[address] [place] [address] MANUAL DIFFERENTIAL (CELLAVI TANYA)on 04-27-2024 BAND NEUTROPHILS TOTAL PER COUNTED LEUKOCYTES BY MANUAL COUNT Normal [facility] Comment on above: Performed By: #### L [id number], [id number] ####Digital Watch Assembler: VIVIAN PANTOJA ([phone])[facility] ([facility])[address] [place] [address] [place] BASOPHILS TOTAL PER COUNTED LEUKOCYTES BY MANUAL COUNT Normal [facility] Comment on above: Performed By: #### L [id number], [id number] ####Digital Watch Assembler: VIVIAN PANTOJA ([phone])[facility] ([facility] [place] [address] [place] BLASTS TOTAL PER COUNTED LEUKOCYTES BY MANUAL COUNT Normal [facility] Comment on above: Performed By: #### L [id number], [id number] ####Digital Watch Assembler: VIVIAN PANTOJA ([phone])[facility] [place] [address] [place] EOSINOPHILS TOTAL PER COUNTED LEUKOCYTES BY MANUAL COUNT Normal [facility] Comment on above: Performed By: #### L [id number], [id number] ####Digital Watch Assembler: VIVIAN PANTOJA ([phone])[facility] [place] [address] [place] LYMPHOCYTES (10*3/UL) IN BLOOD-CELLAVISION 3.1 10*3/uL Normal 1.0-4.3 [facility] Comment on above: Performed By: #### L [id number], [id number] ####Digital Watch Assembler: VIVIAN PANTOJA ([id number])[facility] [place] [address] [place] LYMPHOCYTES TOTAL PER COUNTED LEUKOCYTES BY MANUAL COUNT 23 Normal [facility] Comment on above: Performed By: #### L [id number], [id number] ####Digital Watch Assembler: VIVIAN PANTOJA ([id number])[facility] [place] [address] [place] LYMPHOCYTES/100 LEUKOCYTES IN BLOOD-CELLAVISION 23 % Normal 15-45 [facility] Comment on above: Performed By: #### L [id number], [id number] ####Digital Watch Assembler: VIVIAN PANTOJA ([phone])[facility] [place] [address] [place] METAMYELOCYTES TOTAL PER COUNTED LEUKOCYTES BY MANUAL COUNT [facility] Comment on above: Performed By: #### L [id number], [id number] ####Digital Watch Assembler: VIVIAN PANTOJA ([id number])[facility] [place] [address] [place] MONOCYTES (10*3/UL) IN BLOOD-CELLAVISION 2.2 10*3/uL High 0.0-0.9 [facility] Comment on above: Performed By: #### L [id number], [id number] ####Digital Watch Assembler: VIVIAN PANTOJA ([phone])[facility] [place] [address] MONOCYTES TOTAL PER COUNTED LEUKOCYTES BY MANUAL COUNT 16 Normal [facility] Comment on above: Performed By: #### L [id number], [id number] ####Digital Watch Assembler: VIVIAN PANTOJA ([id number])[facility] [place] [address] [place] MONOCYTES/100 LEUKOCYTES IN BLOOD-IBETH 16 % High 5-13 [facility] Comment on above: Performed By: #### L [id number], [id number] ####Digital Watch Assembler: VIVIAN PANOTJA ([phone])[facility] ([facility])[address] [place] [address] MYELOCYTES COUNTED BY MANUAL COUNT [facility] Comment on above: Performed By: #### L [id number], [id number] ####Digital Watch Assembler: VIVIAN PANTOJA ([phone])[facility] ([facility])[address] [place] [address] [place] NEUTROPHILS TOTAL PER COUNTED LEUKOCYTES BY MANUAL COUNT 63 [facility] Comment on above: Performed By: #### L [id number], [id number] ####Digital Watch Assembler: VIVIAN PANTOJA ([id number])[facility] ([facility])[address] [place] [address] [place] OVALOCYTES PRESENCE IN BLOOD BY LIGHT MICROSCOPY Slight Abnormal (none) [facility] Comment on above: Performed By: #### L [id number], [id number] ####Digital Watch Assembler: VIVIAN PANTOJA ([id number])[facility] ([facility])[address] [place] [address] POIKILOCYTOSIS (PRESENCE) IN BLOOD BY LIGHT MICROSCOPY Slight Abnormal (none) [facility] Comment on above: Performed By: #### L [id number], [id number] ####Digital Watch Assembler: VIVIAN PANTOJA ([phone])[facility] ([facility])[address] [place] [address] PROMYELOCYTES TOTAL PER COUNTED LEUKOCYTES BY MANUAL COUNT Normal [facility] Comment on above: Performed By: #### L OF1991, [id number] ####Digital Watch Assembler: VIVIAN PANTOJA ([phone])[facility] ([facility])[address] [place] [address] RBC MORPHOLOGY IN BLOOD abnormal Normal [facility] Comment on above: Performed By: #### L [id number], [id number] ####Digital Watch Assembler: VIVIAN PANTOJA ([id number])[facility] ([facility])[address] [place] [address] SEGMENTED NEUTROPHILS (10*3/UL) IN BLOOD-CELLAVISION 8.4 10*3/uL High 1.8-7.5 [facility] Comment on above: Performed By: #### L [id number], [id number] ####Digital Watch Assembler: VIVIAN PANTOJA ([phone])[facility] ([facility])[address] [place] [address] [place] SEGMENTED NEUTROPHILS/100 LEUKOCYTES-CE 62 % Normal 38-82 [facility] Comment on above: Performed By: #### L [id number], [id number] ####Digital Watch Assembler: VIVIAN PANTOJA ([id number])[facility] ([facility])[address] [place] [address] UNCLASSIFIED CELLS TOTAL PER COUNTED LEUKOCYTES BY MANUAL COUNT Normal [facility] Comment on above: Performed By: #### L [id number], [id number] ####Digital Watch Assembler: VIVIAN PANTOJA ([phone])[facility] ([facility])[address] [place] [address] VARIANT LYMPHOCYTES TOTAL PER COUNTED LEUKOCYTES BY MANUAL COUNT Normal [facility] Comment on above: Performed By: #### L [id number], [id number] ####Digital Watch Assembler: VIVIAN PANTOJA ([phone])[facility] ([facility])[address] [place] [address] Magnesium [Mass/Vol]on 04-27 Interpretation and review of laboratory results Normal [facility] No Panel Informationon 04-27 2h Troponin HS (Serial 2nd Troponin) 37 ng/L High NINF - 14 ng/L [facility] Interpretation and review of laboratory results Abnormal [facility] Interpretation and review of laboratory results Normal [facility] Interpretation and review of laboratory results Abnormal [facility] Lymphocytes Manual 23 [facility] Monocytes Manual 16 [facility] Neutrophils Manual 63 [facility] Interpretation and review of laboratory results Abnormal [facility] Troponin HS Serial Baseline 40 ng/L High NINF - 14 ng/L [facility] Interpretation and review of laboratory results Normal [facility] Progress Noteon 04-27-2024 Progress Note Normal [facility] VMA, URINEon 04-27-2024 CREATININE, URINE - PER 24H 564 mg/d Normal 500-1400 [facility] Comment on above: Performed By: #### L [id number] ####[facility] ([facility])[address] [place] [address] [place] Result Comment: Perf ormed By: [facility] [address] [place], [place] [address]Rtqomhvwnz Director: Miranda Dorman MD, PhDCLIA Number: [id number] Performed By: #### L [id number] ####[facility] ([facility])[address] [place] [address] [place] CREATININE, URINE - PER VOLUME 182 mg/dL Normal [facility] Comment on above: Performed By: #### L [id number] ####[facility] ([facility])[address] Performed By: #### L [id number] ####[facility] ([facility])[address] HOURS COLLECTED 24 hr Normal [facility] Comment on above: Result Comment: Per 24h calculations are provided to aid interpretation forcollections with a duration of 24 hours and an average daily urinevolume. For specimens with notable deviations in collection timeor volume, ratios of analytes to a corresponding urine creatinineconcentration may assist in result interpretation. Performed By: #### L AB750 ####[facility] ([facility])[address] Performed By: #### L [id number] ####[facility] ([facility])[address] TOTAL VOLUME 310 mL Normal [facility] Comment on above: Performed By: #### L [id number] ####[facility] ([facility])[address] Performed By: #### L [id number] ####[facility] ([facility])[address] VANILLYLMANDELIC ACID - PER 24H 1.9 mg/d Normal 0.0-7.0 [facility] Comment on above: Performed By: #### L [id number] ####[facility] ([facility])[address] VANILLYLMANDELIC ACID - PER VOLUME 6.2 mg/L Normal [facility] Comment on above: Performed By: #### L [id number] ####[facility] ([facility])[address] VANILLYLMANDELIC ACID - RATIO TO BANKRUPTCY PARALEGAL 3 mg/gCR Normal 0-6 [facility] Comment on above: Result Comment: REFE RENCE INTERVAL: VMA, Urine mg/g CRTAccess complete set of age- and/or gender-specific referenceintervals for this test in the [employer] [facility] Test Directory(PingMe).Performed By: [facility] [place], [place] [address]Kgcjlkivra Director: Miranda Dorman MD, PhDCLIA Number: [id number] Performed By: #### L [id number] ####[facility] ([facility])[address] [place] [address] [place] VANILLYLMANDELIC ACID INTERPRETATION See Note Normal [facility] Comment on above: Result Comment: INTE RPRETIVE INFORMATION: Vanillylmandelic Acid (VMA), UrineVanillylmandelic acid (VMA) results are expressed as a ratio tocreatinine excretion (mg/g BANKRUPTCY PARALEGAL). No reference interval isavailable for results reported in units of mg/L. Slight ormoderate increases in catecholamine metabolites may be due toextreme anxiety, essential hypertension, intense physicalexercise, or drug interactions. Significant increase of one ormore catecholamine metabolites (several times the upper referencelimit) is associated with an increased probability of a secretingneuroendocrine tumor.This test was developed and its performance characteristicsdetermined by [facility]. It has not been cleared orapproved by the [place] Food and Drug Administration. This test wasperformed in a CLIA certified laboratory and is intended forclinical purposes. Performed By: #### L AB750 ####[facility] ([facility])[address] [place] [address] [facility] XR Chest Single viewon 04-27 [facility] Radiology Study observation (narrative) [facility] XR Chest Single viewOrdered By: Maxx Molina on 04-27-2024 [facility] Work Phone: 36on 04-25-2024 36 Normal [facility] BASIC METABOLIC PANELon Anion gap [Moles/Vol] 5 mmol/L Normal 05-25 [facility] Comment on above: Performed By: #### L AB15 ####Digital Watch Assembler: VIVIAN PANTOJA ([phone])[facility] ([facility])[address] [place] [address] Calcium [Mass/Vol] 8.8 mg/dL Normal 8.8-10.0 [facility] Comment on above: Performed By: #### L AB15 ####Digital Watch As[employer]er: VIVIAN PANTOJA ([id number])[facility] ([facility])[address] [place], [place] [address] [place] Chloride [Moles/Vol] 111 mmol/L High 98-107 [facility] Comment on above: Performed By: #### L AB15 ####Digital Watch Assembler: VIVIAN PANTOJA ([id number])[facility] CENTERBessy FOX RITTMAN (SWRLAB)[address] [place] [address] CO2 [Moles/Vol] 22 mmol/L Low 23-31 [facility] Comment on above: Performed By: #### L AB15 ####Digital Watch Assembler: VIVIAN PANTOJA ([id number])[facility] CENTERBessy SIDDIQUITMAN (SWRLAB)[address] [place] [address] Creatinine [Mass/Vol] 1.84 mg/dL High 0.57-1.11 [facility] Comment on above: Performed By: #### L AB15 ####Digital Watch Assembler: VIVIAN PANTOJA ([id number])[facility] CENTERBessy SIDDIQUITMAN (SWRLAB)[address] [place] [address] [place] GLOMERULAR FILTRATION RATE ML/MIN/1.73 SQ M.PREDICTED 28.7 mL/min/1.73m*2 Low >60.0 [facility] Comment on above: Result Comment: Calc ulation based on the Chronic Kidney Disease Epidemiology Collaboration (CKD-EPI) equation refit without adjustment for race Performed By: #### L AB15 ####Digital Watch Assembler: VIVIAN PANTOJA ([id number])[facility] CENTERBessy SIDDIQUITMAN (SWRLAB)[address] [place] [address] [place] Glucose [Mass/Vol] 101 mg/dL Normal 82-115 [facility] Comment on above: Performed By: #### L AB15 ####Digital Watch Assembler: VIVIAN PANTOJA ([id number])[facility]ENTERA RUDDY RITTMAN (SWRLAB)[address] Potassium [Moles/Vol] 4.0 mmol/L Normal 3.5-5.1 [facility] Comment on above: Result Comment: [facility] potassium values may be up to 0.5 mmol/L lower than serum values. Performed By: #### L AB15 ####Digital Watch Assembler: VIVIAN PANTOJA ([id number])[facility] CENTERBessy FOX RITTMAN (SWRLAB)[address] Sodium [Moles/Vol] 138 mmol/L Normal 136-145 [facility] Comment on above: Performed By: #### L AB15 ####Digital Watch Assembler: VIVIAN PANTOJA ([id number])[facility] CENTERBessy FOX RITTMAN (SWRLAB)[address] [place] [address] Urea nitrogen [Mass/Vol] 30 mg/dL High - [facility] Comment on above: Performed By: #### L AB15 ####Digital Watch Assembler: VIVIAN PANTOJA ([id number])[facility] CENTERBessy FOX RITTMAN (SWRLAB)[address] [place] [address] DIGOXINon 04-18-2024 Digoxin [Mass/Vol] 2.0 ng/mL Normal 0.8-2.0 [facility] Comment on above: Result Comment: LEOBARDO Gill COMMENTS:Toxicity seen at concentrations >2.0 ng/mL Performed By: #### L AB23 ####Digital Watch Assembler: VIVIAN PANTOJA ([id number])[facility] CENTERBessy SIDDIQUITMAN (SWRLAB)[address] [place] [address] 04-13-2024 36 Noted; thank you. [facility] 36 [facility] 3604-06-2024 36 Placed call to shari gonzalez to discuss provider direction. Message left on voicemail to return call. Patient can also call us back if any questions. [facility] 36on 04-05-[address] [facility] 36 Called daughter, and left message that she is now scheduled to see Dr. Moon in [place] 04/27/24 at 9:[address] [facility] 36 [facility] 36 [facility] 36on 04-04-2024 36 Called patient and n o answer and voice mail is full, also sent patient a Zayo message. [facility] 36 [facility] Progress Noteon 04-03-[address] [facility] 36on 03-23-2024 36 Normal [facility] 36 Daughter called to schedule. She was recently in [facility], her heart rate was elevated, and medication was changed. She is now scheduled to see Dr. Moon 04/06/24. [facility] [id number] 03-21-2024 [id number] Patient Choice Patient Name: ALTA BAKER Date of : 1950 [facility] 36on 03-13-[address] [facility] 36 [facility] 36 [facility] 30on 02-22-[address] [facility] [id number] 02-22-[id number] [facility] [id number] Spoke with patients daughter Rhiannon to discuss dc planning and dc time. She will meet the patient at [facility]. [facility] [id number] Dc to [facility] this afternoon at 4:00. 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 Provided the nurse with report number and will notify family. [facility] [id number] [facility] [id number] [facility] CBC (HEMOGRAM)on 02-22-2024 Erythrocyte distribution width (RBC) [Ratio] 15.6 % High 11.5-15.0 [facility] Comment on above: Performed By: #### L AB294 ####Digital Watch Assembler: AMAN SANTOS ([id number])[facility] (SBHLAB)[address] Hematocrit (Bld) [Volume fraction] 32.0 % Low 35.0-47.0 [facility] Comment on above: Performed By: #### L AB294 ####Digital Watch Assembler: AMAN MEDINAANGELA ([id number])[facility]ENTERA [place] (SBHLAB)[address] Hemoglobin (Bld) [Mass/Vol] 9.5 g/dL Low 11.7-16.0 [facility] Comment on above: Performed By: #### L AB294 ####Digital Watch Assembler: AMAN HEARDOMID ([id number])[facility]ENTERA [facility]BCROWNPOINT [facility]ACILITYN (SBHLAB)[address] IPF 10 Normal [facility] Comment on above: Performed By: #### L AB294 ####Digital Watch Assembler: AMAN HEARDOMID ([id number])[facility]ENTERA BARBCROWNPOINT [facility] FACILITYN (SBHLAB)[address] MCH (RBC) [Entitic mass] 27.4 pg Normal 26.0-34.0 [facility] Comment on above: Performed By: #### L AB294 ####Digital Watch Assembler: AMAN HEARDOMID ([id number])[facility] CENTEReBssy MARTINEZCROWNPOINT HEALTH CARE FACILITYN (SBHLAB)[address] MCHC 29.7 % Low 30.5-36.0 [facility] Comment on above: Performed By: #### L AB294 ####Digital Watch Assembler: AMAN HEARDOMID ([id number])[facility]ENTERA [place] (SBHLAB)[address] MCV (RBC) [Entitic vol] 92.2 fL Normal 77.0-99.0 [facility] Comment on above: Performed By: #### L AB294 ####Digital Watch Assembler: AMAN SANTOS ([id number])[facility]ENTERA BARBISAMARN (SBHLAB)[address] Platelet mean volume (Bld) [Entitic vol] 11.9 fL Normal 9.0-12.7 [facility] Comment on above: Performed By: #### L AB294 ####Digital Watch Assembler: AMAN SANTOS ([id number])[facility]ENTERA [place] (SBHLAB)[address] Platelets (Bld) [#/Vol] 95 10*3/uL Low 140-440 [facility] Comment on above: Performed By: #### L AB294 ####Digital Watch Assembler: AMAN SANTOS ([id number])[facility] (SBHLAB)[address] RBC (Bld) [#/Vol] 3.47 10*6/uL Low 3.80-5.20 [facility] Comment on above: Performed By: #### L AB294 ####Digital Watch Assembler: AMAN SANTOS ([id number])[facility] (SBHLAB)[address] WBC (Bld) [#/Vol] 10.1 10*3/uL Normal 3.6-10.7 [facility] Comment on above: Performed By: #### L AB294 ####Digital Watch Assembler: AMAN SANTOS ([id number])[facility] (SBAB)[address] CBC panel Auto (Bld)on 02-21 Erythrocyte distribution width (RBC) [Ratio] 15.6 % High 11.5 - 15.0 % [facility] Hematocrit (Bld) [Volume fraction] 32 % Low 35.0 - 47.0 % [facility] Hemoglobin (Bld) [Mass/Vol] 9.5 g/dL Low 11.7 - 16.0 g/dL [facility] Interpretation and review of laboratory results Abnormal [facility] IPF 10 [facility] MCH (RBC) [Entitic mass] 27.4 pg 26.0 - 34.0 pg [facility] MCHC (RBC) [Mass/Vol] 29.7 % Low 30.5 - 36.0 % [facility] MCV (RBC) [Entitic vol] 92.2 fL 77.0 - 99.0 fL [facility] Platelet mean volume (Bld) [Entitic vol] 11.9 fL 9.0 - 12.7 fL [facility] Platelets (Bld) [#/Vol] 95 10*3/uL Low 140 - 440 10*3/uL [facility] RBC (Bld) [#/Vol] 3.47 10*6/uL Low 3.80 - 5.2 0 10*6/uL [facility] WBC (Bld) [#/Vol] 10.1 10*3/uL 3.6 - 10.7 10*3/uL [facility] COMPREHENSIVE METABOLIC PANE Amaury 02-22-2024 Albumin [Mass/Vol] 3.8 g/dL Normal 3.4-4.8 [facility] Comment on above: Performed By: #### L AB17 ####Digital Watch Assembler: AMAN SANTOS ([id number])[facility] ([facility])[address] ALP [Catalytic activity/Vol] 88 U/L Normal 40-150 [facility] Comment on above: Performed By: #### L AB17 ####Digital Watch Assembler: AMAN SANTOS ([id number])[facility] ([facility]AB)[address] ALT [Catalytic activity/Vol] 16 U/L Normal <30 [facility] Comment on above: Performed By: #### L AB17 ####Digital Watch Assembler: AMAN SANTOS ([id number])[facility] (HLAB)[address] Anion gap [Moles/Vol] 7 mmol/L Normal 3-13 [facility] Comment on above: Performed By: #### L AB17 ####Digital Watch Assembler: AMAN SANTOS ([id number])[facility] (HLAB)[address] AST [Catalytic activity/Vol] 14 U/L Normal <34 [facility] Comment on above: Performed By: #### L AB17 ####Digital Watch Assembler: AMAN SANTOS ([id number])[facility] MIJARESN (SBHLAB)[address] Bilirubin [Mass/Vol] 1.8 mg/dL High <1.2 [facility] Comment on above: Performed By: #### L AB17 ####Digital Watch Assembler: AMAN SANTOS ([id number])[facility]A [place] (SBHLAB)[address] Calcium [Mass/Vol] 9.5 mg/dL Normal 8.8-10.0 [facility] Comment on above: Performed By: #### L AB17 ####Digital Watch Assembler: AMAN SANTOS ([id number])[facility]A [place] (SBHLAB)[address] Chloride [Moles/Vol] 99 mmol/L Normal 98-107 [facility] Comment on above: Performed By: #### L AB17 ####Digital Watch Assembler: AMAN SANTOS ([id number])[facility]A [place] (SBHLAB)[address] CO2 [Moles/Vol] 36 mmol/L High 23-31 [facility] Comment on above: Performed By: #### L AB17 ####Digital Watch Assembler: AMAN SANTOS ([id number])[facility]A [place] (SBHLAB)[address] Creatinine [Mass/Vol] 0.64 mg/dL Normal 0.57-1.11 [facility] Comment on above: Performed By: #### L AB17 ####Digital Watch Assembler: AMAN SANTOS ([id number])[facility]A [place] (SBHLAB)[address] GLOMERULAR FILTRATION RATE ML/MIN/1.73 SQ M.PREDICTED >90.0 Normal >60.0 [facility] Comment on above: Result Comment: Calc ulation based on the Chronic Kidney Disease Epidemiology Collaboration (CKD-EPI) equation refit without adjustment for race Performed By: #### L AB17 ####Digital Watch Assembler: AMAN SANTOS ([id number])[facility] CENTERBessy MARTINEZISAMARN (SBHLAB)[address] Glucose [Mass/Vol] 111 mg/dL Normal 82-115 [facility] Comment on above: Performed By: #### L AB17 ####Digital Watch Assembler: AMAN SANTOS ([id number])[facility]ENTERA BARBCROWNPOINT HEALTH CARE FACILITYN (SBHLAB)[address] Potassium [Moles/Vol] 3.9 mmol/L Normal 3.5-5.1 [facility] Comment on above: Result Comment: [facility] potassium values may be up to 0.5 mmol/L lower than serum values. Performed By: #### L AB17 ####Digital Watch Assembler: AMNA SANTOS ([id number])[facility]ITALSi[facility] (SBHLAB)[address] Protein [Mass/Vol] 6.1 g/dL Low 6.4-8.3 [facility] Comment on above: Performed By: #### L AB17 ####Digital Watch Assembler: AMAN SANTOS ([id number])[facility] (SBHLAB)[address] Sodium [Moles/Vol] 142 mmol/L Normal 136-145 [facility] Comment on above: Performed By: #### L AB17 ####Digital Watch Assembler: AMAN SANTOS ([id number])[facility] (SBHLAB)[address] Urea nitrogen [Mass/Vol] 11 mg/dL Normal 9-23 [facility] Comment on above: Performed By: #### L AB17 ####Digital Watch Assembler: AMAN SANTOS ([id number])[facility] (SBHLAB)[address] Comprehensive metabolic 1998 panelon 02-22-2024 Albumin [Mass/Vol] 3.8 g/dL 3.4 - 4.8 g/dL [facility] ALP [Catalytic activity/Vol] 88 U/L 40 - 150 U/L [facility] ALT [Catalytic activity/Vol] 16 U/L NINF - 30 U/L [facility] Anion gap [Moles/Vol] 7 mmol/L 3 - 13 mmol/L [facility] AST [Catalytic activity/Vol] 14 U/L NINF - 34 U/L [facility] Bilirubin [Mass/Vol] 1.8 mg/dL High NINF - 1.2 mg/dL [facility] Calcium [Mass/Vol] 9.5 mg/dL 8.8 - 10. 0 mg/dL [facility] Chloride [Moles/Vol] 99 mmol/L 98 - 10 7 mmol/L [facility] CO2 [Moles/Vol] 36 mmol/L High 23 - 31 mmol/L [facility] Creatinine [Mass/Vol] 0.64 mg/dL 0.57 - 1.11 mg/dL [facility] GFR/1.73 sq M.predicted (S/P/Bld) [Vol rate/Area] - PINF [facility] Comment on above: Calculation based on the Chronic Kidney Disease Epidemiology Collaboration (CKD-EPI) equation refit without adjustment for race Glucose [Mass/Vol] 111 mg/dL 82 - 115 mg/dL [facility] Interpretation and review of laboratory results Abnormal [facility] Potassium [Moles/Vol] 3.9 mmol/L 3.5 - 5.1 mmol/L [facility] Comment on above: Plasma potassium imer ues may be up to 0.5 mmol/L lower than serum values. Protein [Mass/Vol] 6.1 g/dL Low 6.4 - 8.3 g/dL [facility] Sodium [Moles/Vol] 142 mmol/L 136 - 145 mmol/L [facility] Urea nitrogen [Mass/Vol] 11 mg/dL 9 - 23 mg/dL [facility] DIGOXINon 02-22-2024 Digoxin [Mass/Vol] 1.2 ng/mL Normal 0.8-2.0 [facility] Comment on above: Result Comment: LEOBARDO Gill COMMENTS:Toxicity seen at concentrations >2.0 ng/mL Performed By: #### L AB23 ####Digital Watch Assembler: AMAN SANTOS ([id number])[facility] (SBHLAB)[address] Laboratory - Drug toxicology on 02-22-2024 Digoxin [Mass/Vol] 1.2 ng/mL 0.8 - 2.0 ng/mL [facility] No Panel Informationon 02-21 Interpretation and review of laboratory results Normal [facility] Toxicity seen at concentrations >2.0 ng/mL [facility] Progress Noteon 02-22-2024 Progress Note Normal [facility] Progress Note Normal [facility] Progress Note Normal [facility] [id number] 02-21-2024 [id number] Normal [facility] CBC (HEMOGRAM)on 02-21-2024 Erythrocyte distribution width (RBC) [Ratio] 15.6 % High 11.5-15.0 [facility] Comment on above: Performed By: #### L [id number] ####Digital Watch Assembler: AMAN SANTOS ([id number])[facility] (SBAB)[address] [place] [address] Hematocrit (Bld) [Volume fraction] 32.7 % Low 35.0-47.0 [facility] Comment on above: Performed By: #### L AB294 ####Digital Watch Assembler: AMAN SANTOS ([id number])[facility] ([facility])[address] [place] [address] Hemoglobin (Bld) [Mass/Vol] 9.5 g/dL Low 11.7-16.0 [facility] Comment on above: Performed By: #### L AB294 ####Digital Watch Assembler: AMAN SANTOS ([id number])[facility] (SBHLAB)[address] [place] [address] [place] IPF 11 Normal [facility] Comment on above: Performed By: #### L AB294 ####Digital Watch Assembler: AMAN SANTOS ([id number])[facility] (SBHLAB)[address] MCH (RBC) [Entitic mass] 27.2 pg Normal 26.0-34.0 [facility] Comment on above: Performed By: #### L AB294 ####Digital Watch Assembler: AMAN SANTOS ([id number])[facility] (SBHLAB)[address] MCHC 29.1 % Low 30.5-36.0 [facility] Comment on above: Performed By: #### L AB294 ####Digital Watch Assembler: AMAN SANTOS ([id number])[facility] [place] (SBHLAB)[address] MCV (RBC) [Entitic vol] 93.7 fL Normal 77.0-99.0 [facility] Comment on above: Performed By: #### L AB294 ####Digital Watch Assembler: AMAN SANTOS ([id number])[facility] CENTERBessy MARTINEZERTON (SBHLAB)[address] Platelet mean volume (Bld) [Entitic vol] 12.6 fL Normal 9.0-12.7 [facility] Comment on above: Performed By: #### L AB294 ####Digital Watch Assembler: AMAN SANTOS ([id number])[facility] CENTERBessy [place] (SBHLAB)[address] [place] [address] [place] Platelets (Bld) [#/Vol] 91 10*3/uL Low 140-440 [facility] Comment on above: Performed By: #### L AB294 ####Digital Watch Assembler: AMAN SANTOS ([id number])[facility] [place] (SBHLAB)[address] RBC (Bld) [#/Vol] 3.49 10*6/uL Low 3.80-5.20 [facility] Comment on above: Performed By: #### L AB294 ####Digital Watch Assembler: AMAN SANTOS ([id number])[facility] [place] (SBHLAB)[address] WBC (Bld) [#/Vol] 11.8 10*3/uL High 3.6-10.7 [facility] Comment on above: Performed By: #### L AB294 ####Digital Watch Assembler: AMAN SANTOS ([id number])[facility]ITAL[facility] (SBAB)[address] CBC panel Auto (Bld)Ordered By: Luis Hill on 02-21-2024 Erythrocyte distribution width (RBC) [Ratio] 15.6 % High 11.5 - 15.0 % [facility] Hematocrit (Bld) [Volume fraction] 32.7 % Low 35.0 - 47.0 % [facility] Hemoglobin (Bld) [Mass/Vol] 9.5 g/dL Low 11.7 - 16.0 g/dL [facility] Interpretation and review of laboratory results Abnormal [facility] IPF 11 [facility] MCH (RBC) [Entitic mass] 27.2 pg 26.0 - 34.0 pg [facility] MCHC (RBC) [Mass/Vol] 29.1 % Low 30.5 - 36.0 % [facility] MCV (RBC) [Entitic vol] 93.7 fL 77.0 - 99.0 fL [facility] Platelet mean volume (Bld) [Entitic vol] 12.6 fL 9.0 - 12.7 fL [facility] Platelets (Bld) [#/Vol] 91 10*3/uL Low 140 - 440 10*3/uL [facility] RBC (Bld) [#/Vol] 3.49 10*6/uL Low 3.80 - 5.2 0 10*6/uL [facility] WBC (Bld) [#/Vol] 11.8 10*3/uL High 3.6 - 10.7 10*3/uL [facility] COMPREHENSIVE METABOLIC PANE Amaury 02-21-2024 Albumin [Mass/Vol] 3.6 g/dL Normal 3.4-4.8 [facility] Comment on above: Performed By: #### L AB17 ####Digital Watch Assembler: AMAN SANTOS ([id number])[facility] CENTERBessy JUANYOSELYN (SBAB)[address] ALP [Catalytic activity/Vol] 80 U/L Normal 40-150 [facility] Comment on above: Performed By: #### L AB17 ####Digital Watch Assembler: AMAN HEARDOMID ([id number])[facility] (SBHLAB)[address] ALT [Catalytic activity/Vol] 17 U/L Normal <30 [facility] Comment on above: Performed By: #### L AB17 ####Digital Watch Assembler: AMAN HEARDOMID ([id number])[facility] (SBHLAB)[address] Anion gap [Moles/Vol] 5 mmol/L Normal 3-13 [facility] Comment on above: Performed By: #### L AB17 ####Digital Watch Assembler: AMAN HEARDOMID ([id number])[facility] [place] (SBHLAB)[address] AST [Catalytic activity/Vol] 13 U/L Normal <34 [facility] Comment on above: Performed By: #### L AB17 ####Digital Watch Assembler: AMAN HEARDOMID ([id number])[facility] [place] (SBHLAB)[address] Bilirubin [Mass/Vol] 1.3 mg/dL High <1.2 [facility] Comment on above: Performed By: #### L AB17 ####Digital Watch Assembler: AMAN HEARDOMID ([id number])[facility] [place] (SBHLAB)[address] Calcium [Mass/Vol] 9.5 mg/dL Normal 8.8-10.0 [facility] Comment on above: Performed By: #### L AB17 ####Digital Watch Assembler: AMAN MEDINAMONSEOMID ([id number])[facility] [place] (SBHLAB)[address] [place] [address] [place] Chloride [Moles/Vol] 100 mmol/L Normal 98-107 [facility] Comment on above: Performed By: #### L AB17 ####Digital Watch Assembler: AMNA HEARDOMID ([id number])[facility] [place] (SBHLAB)[address] [place] [address] [place] CO2 [Moles/Vol] 38 mmol/L High 23-31 [facility] Comment on above: Performed By: #### L AB17 ####Digital Watch Assembler: AMAN SANTOS ([id number])[facility] ([facility])[address] Creatinine [Mass/Vol] 0.64 mg/dL Normal 0.57-1.11 [facility] Comment on above: Performed By: #### L AB17 ####Digital Watch Assembler: AMAN SANTOS ([id number])[facility] ([facility])[address] GLOMERULAR FILTRATION RATE ML/MIN/1.73 SQ M.PREDICTED >90.0 Normal >60.0 [facility] Comment on above: Result Comment: Calc ulation based on the Chronic Kidney Disease Epidemiology Collaboration (CKD-EPI) equation refit without adjustment for race Performed By: #### L AB17 ####Digital Watch Assembler: AMAN SANTOS ([id number])[facility] ([facility])[address] Glucose [Mass/Vol] 131 mg/dL High 82-115 [facility] Comment on above: Performed By: #### L AB17 ####Digital Watch Assembler: AMAN SANTOS ([id number])[facility] ([facility])[address] [place] [address] Potassium [Moles/Vol] 3.9 mmol/L Normal 3.5-5.1 [facility] Comment on above: Result Comment: [facility] potassium values may be up to 0.5 mmol/L lower than serum values. Performed By: #### L AB17 ####Digital Watch Assembler: AMAN SANTOS ([id number])[facility] ([facility])[address] Protein [Mass/Vol] 5.8 g/dL Low 6.4-8.3 [facility] Comment on above: Performed By: #### L AB17 ####Digital Watch Assembler: AMAN SANTOS ([id number])[facility]ENTERBessy [facility] (SBHLAB)[address] Sodium [Moles/Vol] 143 mmol/L Normal 136-145 [facility] Comment on above: Performed By: #### L AB17 ####Digital Watch Assembler: AMAN SANTOS ([id number])[facility]ENTERB[facility] (SBHLAB)[address] Urea nitrogen [Mass/Vol] 13 mg/dL Normal 9-23 [facility] Comment on above: Performed By: #### L AB17 ####Digital Watch Assembler: AMAN SANTOS ([id number])[facility]ENTERB[facility] (SBHLAB)[address] Comprehensive metabolic 1998 panelon 02-21-2024 Albumin [Mass/Vol] 3.6 g/dL 3.4 - 4.8 g/dL [facility] ALP [Catalytic activity/Vol] 80 U/L 40 - 150 U/L [facility] ALT [Catalytic activity/Vol] 17 U/L NINF - 30 U/L [facility] Anion gap [Moles/Vol] 5 mmol/L 3 - 13 mmol/L [facility] AST [Catalytic activity/Vol] 13 U/L NINF - 34 U/L [facility] Bilirubin [Mass/Vol] 1.3 mg/dL High [facility] mg/dL [facility] Calcium [Mass/Vol] 9.5 mg/dL 8.8 - 10. 0 mg/dL [facility] Chloride [Moles/Vol] 100 mmol/L 98 - 10 7 mmol/L [facility] CO2 [Moles/Vol] 38 mmol/L High 23 - 31 mmol/L [facility] Creatinine [Mass/Vol] 0.64 mg/dL 0.57 - 1.11 mg/dL [facility] GFR/1.73 sq M.predicted (S/P/Bld) [Vol rate/Area] - PINF [facility] Comment on above: Calculation based on the Chronic Kidney Disease Epidemiology Collaboration (CKD-EPI) equation refit without adjustment for race Glucose [Mass/Vol] 131 mg/dL High 82 - 115 mg/dL [facility] Interpretation and review of laboratory results Abnormal [facility] Potassium [Moles/Vol] 3.9 mmol/L 3.5 - 5.1 mmol/L [facility] Comment on above: Plasma potassium imer ues may be up to 0.5 mmol/L lower than serum values. Protein [Mass/Vol] 5.8 g/dL Low 6.4 - 8.3 g/dL [facility] Sodium [Moles/Vol] 143 mmol/L 136 - 145 mmol/L [facility] Urea nitrogen [Mass/Vol] 13 mg/dL 9 - 23 mg/dL [facility] Consulton 02-21-2024 Consult Normal [facility] Progress Noteon 02-21-2024 Progress Note Normal [facility] Progress Note Normal [facility] Progress Note Normal [facility] Progress Note Normal [facility] Progress Note Nutrition update completed. Chart reviewed. Patient continues as a level 1. Normal [facility] 30on 02-20-2024 30 Normal [facility] 30 Normal [facility] [id number] 02-20-2024 [id number] Reviewed loreta sotomayor auth is still pending. Normal [facility] Bacteria identified Cx Nom ( Bld)on 02-20-2024 Interpretation and review of laboratory results Normal [facility] Blood Collection Sit e: Left Antecubital [facility] Blood Collection Sit e: Right Hand [facility] CBC (HEMOGRAM)on 02-20-2024 Erythrocyte distribution width (RBC) [Ratio] 15.9 % High 11.5-15.0 [facility] Comment on above: Performed By: #### L [id number] ####Digital Watch Assembler: AMAN SANTOS ([id number])[facility] ([facility])[address] [place] [address] Hematocrit (Bld) [Volume fraction] 35.6 % Normal 35.0-47.0 [facility] Comment on above: Performed By: #### L [id number] ####Digital Watch Assembler: AMAN SANTOS ([id number])[facility] ([facility])[address] [place] [address] Hemoglobin (Bld) [Mass/Vol] 10.5 g/dL Low 11.7-16.0 [facility] Comment on above: Performed By: #### L [id number] ####Digital Watch Assembler: AMAN SANTOS ([id number])LJBessy MARTINEZYOSELYN (SBHLAB)[address] MCH (RBC) [Entitic mass] 27.6 pg Normal 26.0-34.0 [facility] Comment on above: Performed By: #### L [id number] ####Digital Watch Assembler: AMAN SANTOS ([id number])[facility]ENTERBessy MARTINEZYOSELYN (SBHLAB)[address] MCHC 29.5 % Low 30.5-36.0 [facility] Comment on above: Performed By: #### L [id number] ####Digital Watch Assembler: AMAN SANTOS ([id number])[facility] CENTERBessy MARTINEZYOSELYN (SBHLAB)[address] MCV (RBC) [Entitic vol] 93.4 fL Normal 77.0-99.0 [facility] Comment on above: Performed By: #### L [id number] ####Digital Watch Assembler: AMAN SANTOS ([id number])[facility] CENTERBessy MARTINEZYOSELYN (SBHLAB)[address] Platelet mean volume (Bld) [Entitic vol] 12.1 fL Normal 9.0-12.7 [facility] Comment on above: Performed By: #### L [id number] ####Digital Watch Assembler: AMAN SANTOS ([id number])[facility] CENTERBessy MARTINEZYOSELYN (SBHLAB)[address] [place] [address] [place] Platelets (Bld) [#/Vol] 110 10*3/uL Low 140-440 [facility] Comment on above: Performed By: #### L [id number] ####Digital Watch Assembler: AMAN SANTOS ([id number])[facility] CENTEReBssy [facility]ERSirena (SBHLAB)[address] [place] [address] [place] RBC (Bld) [#/Vol] 3.81 10*6/uL Normal 3.80-5.20 [facility] Comment on above: Performed By: #### L [id number] ####Digital Watch Assembler: AMANAGA MEDINALeannOMID ([id number])[facility] DYLLAN (SBHLAB)[address] WBC (Bld) [#/Vol] 12.9 10*3/uL High 3.6-10.7 [facility] Comment on above: Performed By: #### L [id number] ####Digital Watch Assembler: AMAN HEARDOMID ([id number])[facility] (SBHLAB)[address] CBC panel Auto (Bld)Ordered By: Krystal Kraft on 02-20-2024 Erythrocyte distribution width (RBC) [Ratio] 15.9 % High 11.5 - 15.0 % [facility] Hematocrit (Bld) [Volume fraction] 35.6 % 35.0 - 47.0 % [facility] Hemoglobin (Bld) [Mass/Vol] 10.5 g/dL Low 11.7 - 16.0 g/dL [facility] Interpretation and review of laboratory results Abnormal [facility] MCH (RBC) [Entitic mass] 27.6 pg 26.0 - 34.0 pg [facility] MCHC (RBC) [Mass/Vol] 29.5 % Low 30.5 - 36.0 % [facility] MCV (RBC) [Entitic vol] 93.4 fL 77.0 - 99.0 fL [facility] Platelet mean volume (Bld) [Entitic vol] 12.1 fL 9.0 - 12.7 fL [facility] Platelets (Bld) [#/Vol] 110 10*3/uL Low 140 - 440 10*3/uL [facility] RBC (Bld) [#/Vol] 3.81 10*6/uL 3.80 - 5.2 0 10*6/uL [facility] WBC (Bld) [#/Vol] 12.9 10*3/uL High 3.6 - 10.7 10*3/uL [facility] COMPREHENSIVE METABOLIC PANE Amaury 02-20-2024 Albumin [Mass/Vol] 4.0 g/dL Normal 3.4-4.8 [facility] Comment on above: Performed By: #### L [id number] ####Digital Watch Assembler: AMAN SANTOS ([id number])[facility]ENTERA BARBCROWNPOINT [facility]ALTH CARE FACILITYN (SBHLAB)[address] ALP [Catalytic activity/Vol] 90 U/L Normal 40-150 [facility] Comment on above: Performed By: #### L [id number] ####Digital Watch Assembler: AMAN SANTOS ([id number])[facility]ENTERA BARBCROWNPOINT [facility] CARE FACILITYN (SBHLAB)[address] ALT [Catalytic activity/Vol] 18 U/L Normal <30 [facility] Comment on above: Performed By: #### L [id number] ####Digital Watch Assembler: AMAN SANTOS ([id number])[facility] (HLAB)[address] Anion gap [Moles/Vol] 7 mmol/L Normal 3-13 [facility] Comment on above: Performed By: #### L [id number] ####Digital Watch Assembler: AMAN SANTOS ([id number])[facility] (HLAB)[address] AST [Catalytic activity/Vol] 15 U/L Normal <34 [facility] Comment on above: Performed By: #### L [id number] ####Digital Watch Assembler: AMAN SANTOS ([id number])[facility]ENTERA BARBCROWNPOINT [facility] CARE FACILITYN (SBHLAB)[address] Bilirubin [Mass/Vol] 1.6 mg/dL High <1.2 [facility] Comment on above: Performed By: #### L [id number] ####Digital Watch Assembler: AMAN SANTOS ([id number])[facility] BARBHONORHE[facility] (HLAB)[address] Calcium [Mass/Vol] 10.1 mg/dL High 8.8-10.0 [facility] Comment on above: Performed By: #### L [id number] ####Digital Watch Assembler: AMAN SANTOS ([id number])[facility] CENTERBessy MIJARESN (SBHLAB)[address] Chloride [Moles/Vol] 100 mmol/L Normal 98-107 [facility] Comment on above: Performed By: #### L [id number] ####Digital Watch Assembler: AMAN MEDINAANGELA ([id number])[facility] CENTERBessy BARBCROWNPOINT [facility]ALTH C[facility] FACILITYN (SBHLAB)[address] CO2 [Moles/Vol] 37 mmol/L High 23-31 [facility] Comment on above: Performed By: #### L [id number] ####Digital Watch Assembler: AMAN HEARDOMID ([id number])[facility] CENTERBessy BARBCROWNPOINT [facility] C[facility] FACILITYN (SBHLAB)[address] Creatinine [Mass/Vol] 0.69 mg/dL Normal 0.57-1.11 [facility] Comment on above: Performed By: #### L AB17 ####Digital Watch Assembler: AMAN SANTOS ([id number])[facility]ENTERA BARBCROWNPOINT HEALTH CARE FACILITYN (SBHLAB)[address] GLOMERULAR FILTRATION RATE ML/MIN/1.73 SQ M.PREDICTED >90.0 Normal >60.0 [facility] Comment on above: Result Comment: Calc ulation based on the Chronic Kidney Disease Epidemiology Collaboration (CKD-EPI) equation refit without adjustment for race Performed By: #### L [id number] ####Digital Watch Assembler: AMAN SANTOS ([id number])[facility] CENTERBessy BARBCROWNPOINT HEALTH CARE FACILITYN (SBHLAB)[address] [place] [address] [place] Glucose [Mass/Vol] 118 mg/dL High 82-115 [facility] Comment on above: Performed By: #### L [id number] ####Digital Watch Assembler: MAAN SANTOS ([id number])[facility] (SBHLAB)[address] [place] [address] [place] Potassium [Moles/Vol] 4.0 mmol/L Normal 3.5-5.1 [facility] Comment on above: Result Comment: [facility] potassium values may be up to 0.5 mmol/L lower than serum values. Performed By: #### L AB17 ####Digital Watch Assembler: AMAN TOM ([id number])[facility]ENTERA DYLLANN (SBHLAB)[address] Protein [Mass/Vol] 6.4 g/dL Normal 6.4-8.3 [facility] Comment on above: Performed By: #### L AB17 ####Digital Watch Assembler: AMAN MEDINAANGELA ([id number])[facility]ENTERA [place] (SBHLAB)[address] Sodium [Moles/Vol] 144 mmol/L Normal 136-145 [facility] Comment on above: Performed By: #### L AB17 ####Digital Watch Assembler: AMAN MEDINAANGELA ([id number])[facility]A [place] (SBHLAB)[address] Urea nitrogen [Mass/Vol] 16 mg/dL Normal 9-23 [facility] Comment on above: Performed By: #### L [id number] ####Digital Watch Assembler: AMAN TOM ([id number])[facility]ENTERA [place] (SBHLAB)[address] Comprehensive metabolic 1998 panelon 02-20-2024 Albumin [Mass/Vol] 4 g/dL 3.4 - 4.8 g/dL [facility] ALP [Catalytic activity/Vol] 90 U/L 40 - 150 U/L [facility] ALT [Catalytic activity/Vol] 18 U/L NINF - 30 U/L [facility] Anion gap [Moles/Vol] 7 mmol/L 3 - 13 mmol/L [facility] AST [Catalytic activity/Vol] 15 U/L NINF - 34 U/L [facility] Bilirubin [Mass/Vol] 1.6 mg/dL High NINF - 1.2 mg/dL [facility] Calcium [Mass/Vol] 10.1 mg/dL High 8.8 - 10. 0 mg/dL [facility] Chloride [Moles/Vol] 100 mmol/L 98 - 10 7 mmol/L [facility] CO2 [Moles/Vol] 37 mmol/L High 23 - 31 mmol/L [facility] Creatinine [Mass/Vol] 0.69 mg/dL 0.57 - 1.11 mg/dL [facility] GFR/1.73 sq M.predicted (S/P/Bld) [Vol rate/Area] - PINF [facility] Comment on above: Calculation based on the Chronic Kidney Disease Epidemiology Collaboration (CKD-EPI) equation refit without adjustment for race Glucose [Mass/Vol] 118 mg/dL High 82 - 115 mg/dL [facility] Interpretation and review of laboratory results Abnormal [facility] Potassium [Moles/Vol] 4 mmol/L 3.5 - 5.1 mmol/L [facility] Comment on above: Plasma potassium imer ues may be up to 0.5 mmol/L lower than serum values. Protein [Mass/Vol] 6.4 g/dL 6.4 - 8.3 g/dL [facility] Sodium [Moles/Vol] 144 mmol/L 136 - 145 mmol/L [facility] Urea nitrogen [Mass/Vol] 16 mg/dL 9 - 23 mg/dL [facility] Laboratory - Microbiology an d Antimicrobial susceptibilityon 02-20-2024 Bacteria identified Cx Nom (Bld) No growth at 5 days [facility] Progress Noteon 02-20-2024 Progress Note Normal [facility] Progress Note Normal [facility] Progress Note Normal [facility] Progress Note Normal [facility] 30on 02-19-2024 30 Normal [facility] 30 Normal [facility] Nursing Noteon 02-19-2024 Nursing Note 0815- Daughter and physician at bedside. Patient hesitant to take any medications at this time. States we are trying to kill her. Medications explained. Showed medications to patient. Patient agreeable to take medications. Tanika Weiss RN 02/19/2024 Normal [facility] Nursing Note Normal [facility] Nursing Note Normal [facility] Progress Noteon 02-19-2024 Progress Note Normal [facility] Progress Note Normal [facility] 30on 02-18-2024 30 Normal [facility] [id number] 02-18-2024 [id number] Normal [facility] [id number] Normal [facility] [id number] Normal [facility] [id number] Normal [facility] CBC W Auto Differential pane l (Bld)on 02-18-2024 Erythrocyte distribution width (RBC) [Ratio] 16.1 % High 11.5 - 15.0 % [facility] Hematocrit (Bld) [Volume fraction] 34.1 % Low 35.0 - 47.0 % [facility] Hemoglobin (Bld) [Mass/Vol] 9.9 g/dL Low 11.7 - 16.0 g/dL [facility] MCH (RBC) [Entitic mass] 27.6 pg 26.0 - 34.0 pg [facility] MCHC (RBC) [Mass/Vol] 29 % Low 30.5 - 36.0 % [facility] MCV (RBC) [Entitic vol] 95 fL 77.0 - 99.0 fL [facility] Platelet mean volume (Bld) [Entitic vol] 12.6 fL 9.0 - 12.7 fL [facility] Platelets (Bld) [#/Vol] 109 10*3/uL Low 140 - 440 10*3/uL [facility] RBC (Bld) [#/Vol] 3.59 10*6/uL Low 3.80 - 5.2 0 10*6/uL [facility] WBC (Bld) [#/Vol] 14.4 10*3/uL High 3.6 - 10.7 10*3/uL [facility] CBC WITH AUTO DIFFERENTIALon 02-18-2024 Erythrocyte distribution width (RBC) [Ratio] 16.1 % High 11.5-15.0 [facility] Comment on above: Performed By: #### L [id number], [id number] ####Digital Watch Assembler: AMAN SANTOS ([id number])[facility] ([facility])[address] [place] [address] Hematocrit (Bld) [Volume fraction] 34.1 % Low 35.0-47.0 [facility] Comment on above: Performed By: #### L [id number], [id number] ####Digital Watch Assembler: AMAN SANTOS ([id number])[facility] ([facility])[address] Hemoglobin (Bld) [Mass/Vol] 9.9 g/dL Low 11.7-16.0 [facility] Comment on above: Performed By: #### L [id number], [id number] ####Digital Watch Assembler: AMAN SANTOS ([id number])[facility]A [place] (SBHLAB)[address] MCH (RBC) [Entitic mass] 27.6 pg Normal 26.0-34.0 [facility] Comment on above: Performed By: #### L [id number], [id number] ####Digital Watch Assembler: AMAN SANTOS ([id number])[facility] CENTERBessy MARTINEZCROWNPOINT HEALTH CARE FACILITYN (SBHLAB)[address] MCHC 29.0 % Low 30.5-36.0 [facility] Comment on above: Performed By: #### L [id number], [id number] ####Digital Watch Assembler: AMAN SANTOS ([id number])[facility]ENTERA JUANCROWNPOINT HEALTH CARE FACILITYN (SBHLAB)[address] MCV (RBC) [Entitic vol] 95.0 fL Normal 77.0-99.0 [facility] Comment on above: Performed By: #### L [id number], [id number] ####Digital Watch Assembler: AMAN SANTOS ([id number])[facility] CENTERBessy BARBCROWNPOINT HEALTH CARE FACILITYN (SBHLAB)[address] Platelet mean volume (Bld) [Entitic vol] 12.6 fL Normal 9.0-12.7 [facility] Comment on above: Performed By: #### L [id number], [id number] ####Digital Watch Assembler: AMAN SANTOS ([id number])[facility]A [place] (SBHLAB)[address] Platelets (Bld) [#/Vol] 109 10*3/uL Low 140-440 [facility] Comment on above: Performed By: #### L [id number], [id number] ####Digital Watch Assembler: AMAN SANTOS ([id number])[facility]A BARBCROWNPOINT [facility]ALTH CARE FACILITYN (SBHLAB)[address] RBC (Bld) [#/Vol] 3.59 10*6/uL Low 3.80-5.20 [facility] Comment on above: Performed By: #### L [id number], [id number] ####Digital Watch Assembler: AMAN SANTOS ([id number])[facility]A [place] (SBHLAB)[address] WBC (Bld) [#/Vol] 14.4 10*3/uL High 3.6-10.7 [facility] Comment on above: Performed By: #### L [id number], [id number] ####Digital Watch Assembler: AMAN SANTOS ([id number])[facility]A [place] (SBHLAB)[address] COMPREHENSIVE METABOLIC PANE Amaury 02-18-2024 Albumin [Mass/Vol] 3.7 g/dL Normal 3.4-4.8 [facility] Comment on above: Performed By: #### L [id number] ####Digital Watch Assembler: AMAN SANTOS ([id number])[facility] [place] (SBHLAB)[address] ALP [Catalytic activity/Vol] 81 U/L Normal 40-150 [facility] Comment on above: Performed By: #### L [id number] ####Digital Watch Assembler: AMAN SANTOS ([id number])[facility] [place] (SBHLAB)[address] ALT [Catalytic activity/Vol] 15 U/L Normal <30 [facility] Comment on above: Performed By: #### L [id number] ####Digital Watch Assembler: AMAN SANTOS ([id number])[facility] [place] (SBHLAB)[address] Anion gap [Moles/Vol] 8 mmol/L Normal 3-13 [facility] Comment on above: Performed By: #### L [id number] ####Digital Watch Assembler: AMAN SANTOS ([phone])[facility] [place] (SBHLAB)[address] AST [Catalytic activity/Vol] 14 U/L Normal <34 [facility] Comment on above: Performed By: #### L [id number] ####Digital Watch Assembler: AMAN SANTOS ([phone])[facility]A BARBISAMARN (SBHLAB)[address] Bilirubin [Mass/Vol] 1.2 mg/dL High <1.2 [facility] Comment on above: Performed By: #### L [id number] ####Digital Watch Assembler: AMAN SANTOS ([id number])[facility]A BARBCROWNPOINT [facility] FACILITYN (SBHLAB)[address] Calcium [Mass/Vol] 9.2 mg/dL Normal 8.8-10.0 [facility] Comment on above: Performed By: #### L AB17 ####Digital Watch Assembler: AMAN SANTOS ([id number])[facility]A BARBCROWNPOINT [facility]ALTH C[facility] FACILITYN (SBHLAB)[address] Chloride [Moles/Vol] 101 mmol/L Normal 98-107 [facility] Comment on above: Performed By: #### L AB17 ####Digital Watch Assembler: AMAN SANTOS ([id number])[facility]A BARBCROWNPOINT [facility]ACILITYN (SBHLAB)[address] CO2 [Moles/Vol] 34 mmol/L High 23-31 [facility] Comment on above: Performed By: #### L [id number] ####Digital Watch Assembler: AMAN SANTOS ([id number])[facility]A [place] (SBHLAB)[address] [place] [address] [place] Creatinine [Mass/Vol] 0.64 mg/dL Normal 0.57-1.11 [facility] Comment on above: Performed By: #### L [id number] ####Digital Watch Assembler: MAAN SANTOS ([phone])[facility]A BARBCROWNPOINT HEALTH CARE FACILITYN (SBHLAB)[address] GLOMERULAR FILTRATION RATE ML/MIN/1.73 SQ M.PREDICTED >90.0 Normal >60.0 [facility] Comment on above: Result Comment: Calc ulation based on the Chronic Kidney Disease Epidemiology Collaboration (CKD-EPI) equation refit without adjustment for race Performed By: #### L [id number] ####Digital Watch Assembler: AMAN SANTOS ([id number])[facility] CENTERBessy BARBYOSELYN (SBHLAB)[address] Glucose [Mass/Vol] 116 mg/dL High 82-115 [facility] Comment on above: Performed By: #### L AB17 ####Digital Watch Assembler: AMAN SANTOS ([id number])[facility]ENTERA [place] (SBHLAB)[address] Potassium [Moles/Vol] 3.7 mmol/L Normal 3.5-5.1 [facility] Comment on above: Result Comment: [facility] potassium values may be up to 0.5 mmol/L lower than serum values. Performed By: #### L AB17 ####Digital Watch Assembler: AMAN SANTOS ([phone])[facility]A BARBCROWNPOINT HEALTH CARE FACILITYN (SBHLAB)[address] Protein [Mass/Vol] 6.0 g/dL Low 6.4-8.3 [facility] Comment on above: Performed By: #### L [id number] ####Digital Watch Assembler: AMAN SANTOS ([phone])[facility]A BARBCROWNPOINT [facility]ALTH C[facility] FACILITYN (SBHLAB)[address] Sodium [Moles/Vol] 143 mmol/L Normal 136-145 [facility] Comment on above: Performed By: #### L [id number] ####Digital Watch Assembler: AMAN SANTOS ([id number])[facility]A BARBCROWNPOINT [facility]ALTH C[facility] FACILITYN (SBHLAB)[address] Urea nitrogen [Mass/Vol] 14 mg/dL Normal 9-23 [facility] Comment on above: Performed By: #### L [id number] ####Digital Watch Assembler: AMAN SANTOS ([phone])[facility]A [facility] (SBHLAB)[address] Comprehensive metabolic 1998 panelon 02-18-2024 Albumin [Mass/Vol] 3.7 g/dL 3.4 - 4.8 g/dL [facility] ALP [Catalytic activity/Vol] 81 U/L 40 - 150 U/L [facility] ALT [Catalytic activity/Vol] 15 U/L NINF - 30 U/L [facility] Anion gap [Moles/Vol] 8 mmol/L 3 - 13 mmol/L [facility] AST [Catalytic activity/Vol] 14 U/L NINF - 34 U/L [facility] Bilirubin [Mass/Vol] 1.2 mg/dL High NINF - 1.2 mg/dL [facility] Calcium [Mass/Vol] 9.2 mg/dL 8.8 - 10. 0 mg/dL [facility] Chloride [Moles/Vol] 101 mmol/L 98 - 10 7 mmol/L [facility] CO2 [Moles/Vol] 34 mmol/L High 23 - 31 mmol/L [facility] Creatinine [Mass/Vol] 0.64 mg/dL 0.57 - 1.11 mg/dL [facility] GFR/1.73 sq M.predicted (S/P/Bld) [Vol rate/Area] - PINF [facility] Comment on above: Calculation based on the Chronic Kidney Disease Epidemiology Collaboration (CKD-EPI) equation refit without adjustment for race Glucose [Mass/Vol] 116 mg/dL High 82 - 115 mg/dL [facility] Interpretation and review of laboratory results Abnormal [facility] Potassium [Moles/Vol] 3.7 mmol/L 3.5 - 5.1 mmol/L [facility] Comment on above: Plasma potassium imer ues may be up to 0.5 mmol/L lower than serum values. Protein [Mass/Vol] 6 g/dL Low 6.4 - 8.3 g/dL [facility] Sodium [Moles/Vol] 143 mmol/L 136 - 145 mmol/L [facility] Urea nitrogen [Mass/Vol] 14 mg/dL 9 - 23 mg/dL [facility] - Hematology and Cell countson 02-18-2024 Band form neutrophils (Bld) [#/Vol] 0.1 10*3/uL High NINF - 0.0 10*3/uL [facility] Band form neutrophils/100 WBC (Bld) 1 % High NINF - 0 % [facility] Eosinophils (Bld) [#/Vol] 0.1 10*3/uL 0.0 - 0.5 10*3/uL [facility] Eosinophils/100 WBC (Bld) 1 % 0 - 6 % [facility] Hypochromia Ql (Bld) Moderate Abnormal (none) [facility] Lymphocytes (Bld) [#/Vol] 0.9 10*3/uL Low 1.0 - 4.3 10*3/uL [facility] Lymphocytes/100 WBC (Bld) 6 % Low 15 - 45 % [facility] Monocytes (Bld) [#/Vol] 2.9 10*3/uL High 0.0 - 0.9 10*3/uL [facility] Monocytes/100 WBC (Bld) 20 % High 5 - 13 % [facility] Neutrophils (Bld) [#/Vol] 10.4 10*3/uL High 1.8 - 7.5 10*3/uL [facility] Poikilocytosis LM Ql (Bld) Slight Abnormal (none) [facility] RBC morphology finding Nom (Bld) abnormal [facility] Segmented neutrophils/100 WBC (Bld) 71 % 38 - 82 % [facility] Stomatocytes LM Ql (Bld) Moderate Abnormal (none) [facility] MANUAL DIFFERENTIAL (CELLAVI TANYA)on 02-18-2024 BAND NEUTROPHILS TOTAL PER COUNTED LEUKOCYTES BY MANUAL COUNT 1 Normal [facility] Comment on above: Performed By: #### L [id number], [id number] ####Digital Watch Assembler: AMAN SANTOS ([id number])[facility] ([facility])[address] [place] [address] BANDS (10*3/UL) IN BLOOD-CELLAVISION 0.1 10*3/uL High <=0.0 [facility] Comment on above: Performed By: #### L [id number], [id number] ####Digital Watch Assembler: AMAN SANTOS ([id number])[facility] (SBHLAB)[address] BASOPHILS TOTAL PER COUNTED LEUKOCYTES BY MANUAL COUNT Normal [facility] Comment on above: Performed By: #### L [id number], [id number] ####Digital Watch Assembler: AMAN HEARDOMID ([id number])[facility] [place] (SBHLAB)[address] [place] [address] [place] BLASTS TOTAL PER COUNTED LEUKOCYTES BY MANUAL COUNT Normal [facility] Comment on above: Performed By: #### L [id number], [id number] ####Digital Watch Assembler: AMAN MEDINAANGELA ([id number])[facility] [place] ([facility])[address] [place] [address] [place] EOSINOPHILS (10*3/UL) IN BLOOD-CELLAVISION 0.1 10*3/uL Normal 0.0-0.5 [facility] Comment on above: Performed By: #### L [id number], [id number] ####Digital Watch Assembler: AMAN MEDINAANGELA ([phone])[facility] [place] ([facility])[address] [place] [address] [place] EOSINOPHILS TOTAL PER COUNTED LEUKOCYTES BY MANUAL COUNT 1 Normal 0-1 [facility] Comment on above: Performed By: #### L [id number], [id number] ####Digital Watch Assembler: AMAN HEARDOMID ([id number])[facility] [place] ([facility])[address] [place] [address] [place] EOSINOPHILS/100 LEUKOCYTES IN BLOOD-CELLAVISION 1 % Normal 0-6 [facility] Comment on above: Performed By: #### L [id number], [id number] ####Digital Watch Assembler: AMAN SANTOS ([phone])[facility] [place] ([facility])[address] [place] [address] [place] HYPOCHROMIA (PRESENCE) IN BLOOD BY LIGHT MICROSCOPY Moderate Abnormal (none) [facility] Comment on above: Performed By: #### L [id number], [id number] ####Digital Watch Assembler: AMAN SANTOS ([phone])[facility] [place] ([facility])[address] [place] [address] [place] LYMPHOCYTES (10*3/UL) IN BLOOD-CELLAVISION 0.9 10*3/uL Low 1.0-4.3 [facility] Comment on above: Performed By: #### L [id number], [id number] ####Digital Watch Assembler: AMAN SANTOS ([id number])[facility] [place] (SB[facility]AB)[address] [place] [address] [place] LYMPHOCYTES TOTAL PER COUNTED LEUKOCYTES BY MANUAL COUNT 7 Normal [facility] Comment on above: Performed By: #### L [id number], [id number] ####Digital Watch Assembler: AMAN HEARDOMID ([id number])[facility] [place] ([facility])[address] [place] [address] [place] LYMPHOCYTES/100 LEUKOCYTES IN BLOOD-CELLAVISION 6 % Low 15-45 [facility] Comment on above: Performed By: #### L [id number], [id number] ####Digital Watch Assembler: AMAN HEARDOMID ([phone])[facility] [place] ([facility])[address] [place] [address] [place] METAMYELOCYTES TOTAL PER COUNTED LEUKOCYTES BY MANUAL COUNT [facility] Comment on above: Performed By: #### L [id number], [id number] ####Digital Watch Assembler: AMAN SANTOS ([phone])[facility] [place] ([facility])[address] [place] [address] [place] MONOCYTES (10*3/UL) IN BLOOD-CELLAVISION 2.9 10*3/uL High 0.0-0.9 [facility] Comment on above: Performed By: #### L [id number], [id number] ####Digital Watch Assembler: AMAN SANTOS ([id number])[facility] [place] ([facility])[address] [place] [address] [place] MONOCYTES TOTAL PER COUNTED LEUKOCYTES BY MANUAL COUNT 22 Normal [facility] Comment on above: Performed By: #### L [id number], [id number] ####Digital Watch Assembler: AMAN SANTOS ([phone])[facility] [place] ([facility])[address] [place] [address] [place] MONOCYTES/100 LEUKOCYTES IN BLOOD-IBETH 20 % High 5-13 [facility] Comment on above: Performed By: #### L [id number], [id number] ####Digital Watch Assembler: AMAN SANTOS ([id number])[facility] [place] ([facility])[address] [place] [address] [place] MYELOCYTES COUNTED BY MANUAL COUNT Normal [facility] Comment on above: Performed By: #### L [id number], [id number] ####Digital Watch Assembler: AMAN SANTOS ([phone])[facility] [place] ([facility])[address] [place] [address] [place] NEUTROPHILS BAND FORM/100 LEUKOCYTES IN BLOOD-CELLAVISI 1 % High <=0 [facility] Comment on above: Performed By: #### L [id number], [id number] ####Digital Watch Assembler: AMAN SANTOS ([phone])[facility] [place] ([facility])[address] [place] [address] [place] NEUTROPHILS TOTAL PER COUNTED LEUKOCYTES BY MANUAL COUNT 78 Normal [facility] Comment on above: Performed By: #### L [id number], [id number] ####Digital Watch Assembler: AMAN SANTOS ([phone])[facility] [place] ([facility])[address] [place] [address] [place] POIKILOCYTOSIS (PRESENCE) IN BLOOD BY LIGHT MICROSCOPY Slight Abnormal (none) [facility] Comment on above: Performed By: #### L [id number], [id number] ####Digital Watch Assembler: AMAN SANTOS ([phone])[facility] [place] ([facility])[address] [place] [address] [place] PROMYELOCYTES TOTAL PER COUNTED LEUKOCYTES BY MANUAL COUNT Normal [facility] Comment on above: Performed By: #### L [id number], [id number] ####Digital Watch Assembler: AMAN SANTOS ([id number])[facility] [place] ([facility])[address] [place] [address] [place] RBC MORPHOLOGY IN BLOOD abnormal Normal [facility] Comment on above: Performed By: #### L [id number], [id number] ####Digital Watch Assembler: AMAN ASNTOS ([phone])[facility] [place] (SB[facility])[address] SEGMENTED NEUTROPHILS (10*3/UL) IN BLOOD-CELLAVISION 10.4 10*3/uL High 1.8-7.5 [facility] Comment on above: Performed By: #### L [id number], [id number] ####Digital Watch Assembler: AMAN SANTOS ([id number])[facility] [place] ([place])[address] SEGMENTED NEUTROPHILS/100 LEUKOCYTES-CE 71 % Normal 38-82 [facility] Comment on above: Performed By: #### L [id number], [id number] ####Digital Watch Assembler: AMAN SANTOS ([id number])[facility] [place] ([facility])[address] STOMATOCYTES IN BLOOD BY LIGHT MICROSCOPY Moderate Abnormal (none) [facility] Comment on above: Performed By: #### L [id number], [id number] ####Digital Watch Assembler: AMAN SANTOS ([id number])[facility] [place] ([place])[address] UNCLASSIFIED CELLS TOTAL PER COUNTED LEUKOCYTES BY MANUAL COUNT Normal [facility] Comment on above: Performed By: #### L [id number], [id number] ####Digital Watch Assembler: AMAN SANTOS ([id number])[facility] [place] ([place])[address] VARIANT LYMPHOCYTES TOTAL PER COUNTED LEUKOCYTES BY MANUAL COUNT Normal [facility] Comment on above: Performed By: #### L [id number], [id number] ####Digital Watch Assembler: AMAN SANTOS ([phone])[facility] [place] ([facility])[address] No Panel Informationon 02-17 Atypical Lymphocytes Manual [facility] Bands Manual 1 [facility] Basophils Manual [facility] Blasts Manual [facility] Eosinophils Manual 1 0 - 1 [facility] Interpretation and review of laboratory results Abnormal [facility] Lymphocytes Manual 7 [facility] Metamyelocytes Manual [facility] Monocytes Manual 22 [facility] Myelocytes Manual [facility] Neutrophils Manual 78 [facility] Promyelocytes Manual [facility] Unclassified Cells, Manual [facility] Progress Noteon 02-18-2024 Progress Note Normal [facility] Progress Note Normal [facility] Progress Note Normal [facility] 30on 02-17-2024 30 Normal [facility] [id number] 02-17-2024 [id number] Normal [facility] [id number] Normal [facility] 36on 02-17-2024 36 Pt scheduled. Normal [facility] CBC W Auto Differential pane l (Bld)on 02-17-2024 Erythrocyte distribution width (RBC) [Ratio] 16.3 % High 11.5 - 15.0 % [facility] Hematocrit (Bld) [Volume fraction] 31.9 % Low 35.0 - 47.0 % [facility] Hemoglobin (Bld) [Mass/Vol] 9.3 g/dL Low 11.7 - 16.0 g/dL [facility] Interpretation and review of laboratory results Abnormal [facility] IPF 10 [facility] MCH (RBC) [Entitic mass] 27.7 pg 26.0 - 34.0 pg [facility] MCHC (RBC) [Mass/Vol] 29.2 % Low 30.5 - 36.0 % [facility] MCV (RBC) [Entitic vol] 94.9 fL 77.0 - 99.0 fL [facility] Platelet mean volume (Bld) [Entitic vol] 12.6 fL 9.0 - 12.7 fL [facility] Platelets (Bld) [#/Vol] 90 10*3/uL Low 140 - 440 10*3/uL [facility] RBC (Bld) [#/Vol] 3.36 10*6/uL Low 3.80 - 5.2 0 10*6/uL [facility] WBC (Bld) [#/Vol] 11.3 10*3/uL High 3.6 - 10.7 10*3/uL [facility] CBC WITH AUTO DIFFERENTIALon 02-17-2024 Erythrocyte distribution width (RBC) [Ratio] 16.3 % High 11.5-15.0 [facility] Comment on above: Performed By: #### L [id number], [id number] ####Digital Watch Assembler: AMAN SANTOS ([id number])[facility]ENTERBessy MARTINEZYOSELYN (SBHLAB)[address] Hematocrit (Bld) [Volume fraction] 31.9 % Low 35.0-47.0 [facility] Comment on above: Performed By: #### L [id number], [id number] ####Digital Watch Assembler: AMAN SANTOS ([id number])[facility]ENTERBessy MARTINEZYOSELYN (SBHLAB)[address] Hemoglobin (Bld) [Mass/Vol] 9.3 g/dL Low 11.7-16.0 [facility] Comment on above: Performed By: #### L [id number], [id number] ####Digital Watch Assembler: AMAN SANTOS ([phone])[facility]ENTERBessy MARTINEZCROWNPOINT HEALTH CARE FACILITYSirena (SBHLAB)[address] IPF 10 Normal [facility] Comment on above: Performed By: #### L [id number], [id number] ####Digital Watch Assembler: AMAN SANTOS ([id number])[facility]ENTERBessy MARTINEZCROWNPOINT HEALTH CARE FACILITYSirena (SBHLAB)[address] MCH (RBC) [Entitic mass] 27.7 pg Normal 26.0-34.0 [facility] Comment on above: Performed By: #### L [id number], [id number] ####Digital Watch Assembler: AMAN SANTOS ([id number])[facility]ENTERBessy MARTINEZCROWNPOINT HEALTH CARE FACILITYSirena (SB[facility])[address] MCHC 29.2 % Low 30.5-36.0 [facility] Comment on above: Performed By: #### L [id number], [id number] ####Digital Watch Assembler: AMAN SANTOS ([phone])[facility]ENTERBessy MARTINEZYOSELYN (SBHL[place])[address] MCV (RBC) [Entitic vol] 94.9 fL Normal 77.0-99.0 [facility] Comment on above: Performed By: #### L [id number], [id number] ####Digital Watch Assembler: AMAN SANTOS ([id number])[facility] JUANYOSELYN (SB[place])[address] Platelet mean volume (Bld) [Entitic vol] 12.6 fL Normal 9.0-12.7 [facility] Comment on above: Performed By: #### L [id number], [id number] ####Digital Watch Assembler: MAAN SANTOS ([phone])[facility] [place] ([place])[address] Platelets (Bld) [#/Vol] 90 10*3/uL Low 140-440 [facility] Comment on above: Performed By: #### L [id number], [id number] ####Digital Watch Assembler: AMAN SANTOS ([id number])[facility] [place] ([place])[address] RBC (Bld) [#/Vol] 3.36 10*6/uL Low 3.80-5.20 [facility] Comment on above: Performed By: #### L [id number], [id number] ####Digital Watch Assembler: AMAN SANTOS ([id number])[facility]ENTERBessy MARTINEZISAMARN ([place])[address] WBC (Bld) [#/Vol] 11.3 10*3/uL High 3.6-10.7 [facility] Comment on above: Performed By: #### L [id number], [id number] ####Digital Watch Assembler: AMAN SANTOS ([id number])[facility] [place] ([facility])[address] COMPREHENSIVE METABOLIC PANE Amaury 02-17-2024 Albumin [Mass/Vol] 3.5 g/dL Normal 3.4-4.8 [facility] Comment on above: Performed By: #### L [id number] ####Digital Watch Assembler: AMAN SANTOS ([phone])[facility] [place] (SB[facility])[address] [place] [address] [place] ALP [Catalytic activity/Vol] 73 U/L Normal 40-150 [facility] Comment on above: Performed By: #### L [id number] ####Digital Watch Assembler: AMAN SANTOS ([id number])[facility] [place] ([facility])[address] [place] [address] [place] ALT [Catalytic activity/Vol] 15 U/L Normal <30 [facility] Comment on above: Performed By: #### L [id number] ####Digital Watch Assembler: AMAN SANTOS ([id number])[facility] [place] ([place])[address] Anion gap [Moles/Vol] 4 mmol/L Normal 3-13 [facility] Comment on above: Performed By: #### L [id number] ####Digital Watch Assembler: AMAN SANTOS ([id number])[facility]A BARBCROWNPOINT [facility] CARE FACILITYN (SBHL[place])[address] AST [Catalytic activity/Vol] 14 U/L Normal <34 [facility] Comment on above: Performed By: #### L [id number] ####Digital Watch Assembler: AMAN SANTOS ([id number])[facility] [place] ([place])[address] Bilirubin [Mass/Vol] 1.1 mg/dL Normal <1.2 [facility] Comment on above: Performed By: #### L [id number] ####Digital Watch Assembler: AMAN SANTOS ([id number])[facility] [place] ([facility])[address] [place] [address] [place] Calcium [Mass/Vol] 9.1 mg/dL Normal 8.8-10.0 [facility] Comment on above: Performed By: #### L [id number] ####Digital Watch Assembler: AMAN SANTOS ([phone])[facility] BARBCROWNPOINT [facility] CARE FACILITYN (SB[facility])[address] [place] [address] [place] Chloride [Moles/Vol] 103 mmol/L Normal 98-107 [facility] Comment on above: Performed By: #### L [id number] ####Digital Watch Assembler: AMAN SANTOS ([id number])[facility] ([place])[address] CO2 [Moles/Vol] 35 mmol/L High 23-31 [facility] Comment on above: Performed By: #### L [id number] ####Digital Watch Assembler: AMAN SANTOS ([id number])[facility] ([facility])[address] Creatinine [Mass/Vol] 0.71 mg/dL Normal 0.57-1.11 [facility] Comment on above: Performed By: #### L [id number] ####Digital Watch Assembler: AMAN SANTOS ([phone])[facility] ([facility])[address] [place] [address] GLOMERULAR FILTRATION RATE ML/MIN/1.73 SQ M.PREDICTED >90.0 Normal >60.0 [facility] Comment on above: Result Comment: Calc ulation based on the Chronic Kidney Disease Epidemiology Collaboration (CKD-EPI) equation refit without adjustment for race Performed By: #### L [id number] ####Digital Watch Assembler: AMAN SANTOS ([id number])[facility] ([facility])[address] Glucose [Mass/Vol] 134 mg/dL High 82-115 [facility] Comment on above: Performed By: #### L [id number] ####Digital Watch Assembler: AMAN SANTOS ([id number])[facility] ([facility])[address] [place] [address] [place] Potassium [Moles/Vol] 3.9 mmol/L Normal 3.5-5.1 [facility] Comment on above: Result Comment: [facility] potassium values may be up to 0.5 mmol/L lower than serum values. Performed By: #### L [id number] ####Digital Watch Assembler: AMAN SANTOS ([phone])[facility])[address] [place] [address] [place] Protein [Mass/Vol] 5.5 g/dL Low 6.4-8.3 [facility] Comment on above: Performed By: #### L [id number] ####Digital Watch Assembler: AMAN TOM ([id number])[facility]ENTERBessy DIETRICH ([place])[address] Sodium [Moles/Vol] 142 mmol/L Normal 136-145 [facility] Comment on above: Performed By: #### L [id number] ####Digital Watch Assembler: AMAN MEDINAANGELA ([id number])[facility] ([place])[address] Urea nitrogen [Mass/Vol] 17 mg/dL Normal 9-23 [facility] Comment on above: Performed By: #### L [id number] ####Digital Watch Assembler: AMAN TOM ([id number])[facility] ([place])[address] Comprehensive metabolic 1998 panelOrdered By: Spencer Workman on 02-17-2024 Albumin [Mass/Vol] 3.5 g/dL 3.4 - 4.8 g/dL [facility] ALP [Catalytic activity/Vol] 73 U/L 40 - 150 U/L [facility] ALT [Catalytic activity/Vol] 15 U[facility]L [facility] Anion gap [Moles/Vol] 4 mmol/L 3 - 13 mmol/L [facility] AST [Catalytic activity/Vol] 14 U/L NINF - 34 U/L [facility] Bilirubin [Mass/Vol] 1.1 mg/dL NINF - 1.2 mg/dL [facility] Calcium [Mass/Vol] 9.1 mg/dL 8.8 - 10. 0 mg/dL [facility] Chloride [Moles/Vol] 103 mmol/L 98 - 10 7 mmol/L [facility] CO2 [Moles/Vol] 35 mmol/L High 23 - 31 mmol/L [facility] Creatinine [Mass/Vol] 0.71 mg/dL 0.57 - 1.11 mg/dL [facility] GFR/1.73 sq M.predicted (S/P/Bld) [Vol rate/Area] - PINF [facility] Comment on above: Calculation based on the Chronic Kidney Disease Epidemiology Collaboration (CKD-EPI) equation refit without adjustment for race Glucose [Mass/Vol] 134 mg/dL High 82 - 115 mg/dL [facility] Interpretation and review of laboratory results Abnormal [facility] Potassium [Moles/Vol] 3.9 mmol/L 3.5 - 5.1 mmol/L [facility] Comment on above: Plasma potassium imer ues may be up to 0.5 mmol/L lower than serum values. Protein [Mass/Vol] 5.5 g/dL Low 6.4 - 8.3 g/dL [facility] Sodium [Moles/Vol] 142 mmol/L 136 - 145 mmol/L [facility] Urea nitrogen [Mass/Vol] 17 mg/dL 9 - 23 mg/dL [facility] Consulton 02-17-2024 Consult Normal [facility] Laboratory - Hematology and Cell countson 02-17-2024 Hypochromia Ql (Bld) Slight Abnormal (none) [facility] Lymphocytes (Bld) [#/Vol] 0.9 10*3/uL Low 1.0 - 4.3 10*3/uL [facility] Lymphocytes/100 WBC (Bld) 8 % Low 15 - 45 % [facility] Monocytes (Bld) [#/Vol] 2.4 10*3/uL High 0.0 - 0.9 10*3/uL [facility] Monocytes/100 WBC (Bld) 21 % High 5 - 13 % [facility] Neutrophils (Bld) [#/Vol] 8.1 10*3/uL High 1.8 - 7.5 10*3/uL [facility] Poikilocytosis LM Ql (Bld) Slight Abnormal (none) [facility] RBC morphology finding Nom (Bld) abnormal [facility] Segmented neutrophils/100 WBC (Bld) 72 % 38 - 82 % [facility] Stomatocytes LM Ql (Bld) Moderate Abnormal (none) [facility] MANUAL DIFFERENTIAL (CELLAVI TANYA)on 02-17-2024 BAND NEUTROPHILS TOTAL PER COUNTED LEUKOCYTES BY MANUAL COUNT Normal [facility] Comment on above: Performed By: #### L [id number], [id number] ####Digital Watch Assembler: AMAN SANTOS ([id number])[facility] [place] ([facility])[address] [place] [address] [place] BASOPHILS TOTAL PER COUNTED LEUKOCYTES BY MANUAL COUNT [facility] Comment on above: Performed By: #### L [id number], [id number] ####Digital Watch Assembler: AMAN HEARDOMID ([id number])[facility] [place] ([place])[address] BLASTS TOTAL PER COUNTED LEUKOCYTES BY MANUAL COUNT [facility] Comment on above: Performed By: #### L [id number], [id number] ####Digital Watch Assembler: AMAN HEARDOMID ([id number])[facility] [place] ([place])[address] EOSINOPHILS TOTAL PER COUNTED LEUKOCYTES BY MANUAL COUNT Normal [facility] Comment on above: Performed By: #### L [id number], [id number] ####Digital Watch Assembler: AMAN SANTOS ([id number])[facility] [place] ([place])[address] HYPOCHROMIA (PRESENCE) IN BLOOD BY LIGHT MICROSCOPY Slight Abnormal (none) [facility] Comment on above: Performed By: #### L [id number], [id number] ####Digital Watch Assembler: AMAN SANTOS ([phone])[facility] [place] ([place])[address] LYMPHOCYTES (10*3/UL) IN BLOOD-CELLAVISION 0.9 10*3/uL Low 1.0-4.3 [facility] Comment on above: Performed By: #### L [id number], [id number] ####Digital Watch Assembler: AMAN SANTOS ([phone])[facility] [place] ([facility])[address] [place] [address] [place] LYMPHOCYTES TOTAL PER COUNTED LEUKOCYTES BY MANUAL COUNT [address] [place] [address] Comment on above: Performed By: #### L [id number], [id number] ####Digital Watch Assembler: AMAN SANTOS ([phone])[facility] [place] ([facility])[address] [place] [address] [place] LYMPHOCYTES/100 LEUKOCYTES IN BLOOD-CELLAVISION 8 % Low 15-45 [facility] Comment on above: Performed By: #### L [id number], [id number] ####Digital Watch Assembler: AMAN SANTOS ([phone])[facility] [place] ([facility])[address] [place] [address] [place] METAMYELOCYTES TOTAL PER COUNTED LEUKOCYTES BY MANUAL COUNT Normal [facility] Comment on above: Performed By: #### L [id number], [id number] ####Digital Watch Assembler: AMAN SANTOS ([id number])[facility] [place] ([place])[address] [place] [address] [place] MONOCYTES (10*3/UL) IN BLOOD-CELLAVISION 2.4 10*3/uL High 0.0-0.9 [facility] Comment on above: Performed By: #### L [id number], [id number] ####Digital Watch Assembler: AMAN SANTOS ([id number])[facility] [place] ([facility])[address] [place] [address] [place] MONOCYTES TOTAL PER COUNTED LEUKOCYTES BY MANUAL COUNT 24 Normal [facility] Comment on above: Performed By: #### L [id number], [id number] ####Digital Watch Assembler: AMAN SANTOS ([id number])[facility] [place] ([facility])[address] [place] [address] [place] MONOCYTES/100 LEUKOCYTES IN BLOOD-IBETH 21 % High 5-13 [facility] Comment on above: Performed By: #### L [id number], [id number] ####Digital Watch Assembler: AMAN SANTOS ([id number])[facility] [place] ([facility])[address] [place] [address] [place] MYELOCYTES COUNTED BY MANUAL COUNT [facility] Comment on above: Performed By: #### L [id number], [id number] ####Digital Watch Assembler: AMAN SANTOS ([id number])[facility] [place] ([facility])[address] [place] [address] [place] NEUTROPHILS TOTAL PER COUNTED LEUKOCYTES BY MANUAL COUNT 84 Normal [facility] Comment on above: Performed By: #### L [id number], [id number] ####Digital Watch Assembler: AMAN SANTOS ([id number])[facility] [place] ([facility])[address] [place] [address] [place] POIKILOCYTOSIS (PRESENCE) IN BLOOD BY LIGHT MICROSCOPY Slight Abnormal (none) [facility] Comment on above: Performed By: #### L [id number], [id number] ####Digital Watch Assembler: AMAN SANTOS ([phone])[facility] [place] ([facility])[address] [place] [address] [place] PROMYELOCYTES TOTAL PER COUNTED LEUKOCYTES BY MANUAL COUNT Normal [facility] Comment on above: Performed By: #### L [id number], [id number] ####Digital Watch Assembler: AMAN SANTOS ([phone])[facility] [place] ([facility])[address] [place] [address] [place] RBC MORPHOLOGY IN BLOOD abnormal Normal [facility] Comment on above: Performed By: #### L [id number], [id number] ####Digital Watch Assembler: AMAN SANTOS ([id number])[facility] [place] ([facility])[address] [place] [address] [place] SEGMENTED NEUTROPHILS (10*3/UL) IN BLOOD-CELLAVISION 8.1 10*3/uL High 1.8-7.5 [facility] Comment on above: Performed By: #### L [id number], [id number] ####Digital Watch Assembler: AMAN SANTOS ([id number])[facility] [place] ([facility])[address] [place] [address] [place] SEGMENTED NEUTROPHILS/100 LEUKOCYTES-CE 72 % Normal 38-82 [facility] Comment on above: Performed By: #### L [id number], [id number] ####Digital Watch Assembler: AMAN SANTOS ([id number])[facility] [place] ([facility])[address] [place] [address] [place] STOMATOCYTES IN BLOOD BY LIGHT MICROSCOPY Moderate Abnormal (none) [facility] Comment on above: Performed By: #### L [id number], [id number] ####Digital Watch Assembler: AMAN HEARDOMID ([id number])[facility] [place] ([facility])[address] UNCLASSIFIED CELLS TOTAL PER COUNTED LEUKOCYTES BY MANUAL COUNT Normal [facility] Comment on above: Performed By: #### L [id number], [id number] ####Digital Watch Assembler: AMAN HEARDOMID ([id number])[facility] [place] (SBHLAB)[address] VARIANT LYMPHOCYTES TOTAL PER COUNTED LEUKOCYTES BY MANUAL COUNT Normal [facility] Comment on above: Performed By: #### L [id number], [id number] ####Digital Watch Assembler: AMAN HEARDOMID ([id number])[facility]BCR[facility]N (SBHLAB)[address] No Panel Informationon 02-16 Atypical Lymphocytes Manual [facility] Bands Manual [facility] Basophils Manual [facility] Blasts Manual [facility] Eosinophils Manual [facility] Interpretation and review of laboratory results Abnormal [facility] Lymphocytes Manual 9 [facility] Metamyelocytes Manual [facility] Monocytes Manual 24 [facility] Myelocytes Manual [facility] Neutrophils Manual 84 [facility] Promyelocytes Manual [facility] Unclassified Cells, Manual [facility] Progress Noteon 02-17-2024 Progress Note Normal [facility] Progress Note Normal [facility] Progress Note Normal [facility] US Heart TransthoracicOrdere d By: Abbie Powers on 02-17-2024 Ao Root Index 1.36 cm/m2 [facility] Work Phone: Aortic Root 2.8 cm [facility] Work Phone: Aortic Sinus Valsalva 2.8 cm [facility] Work Phone: Aortic Sinus Valsalva Index 1.36 cm/m2 [facility] [employer] Work Phone: AR Max Velocity PISA 4.4 m/s [facility] Work Phone: AR PHT 350.2 ms [facility] Work Phone: Ascending Aorta 3.2 cm [facility] Work Phone: Ascending Aorta Index 1.55 cm/m2 [facility] Work Phone: AV Area by Peak Velocity 1.2 cm2 [facility] [employer] Work Phone: AV Area by VTI 1.3 cm2 [facility] [employer] Work Phone: AV Mean Gradient 8 mmHg [facility] [employer] Work Phone: AV Mean Velocity 1.3 m/s [facility] [employer] Work Phone: AV Peak Gradient 16 mmHg [facility] [employer] Work Phone: AV Peak Velocity 2 m/s [facility] [employer] Work Phone: AV Velocity Ratio 0.55 [facility] [employer] Work Phone: AV VTI 36.5 cm [facility] [employer] Work Phone: [place]/BSA Peak Velocity 0.6 cm2/m2 [facility] Work Phone: K[place]/BSA VTI 0.6 cm2/m2 [facility] [employer] Work Phone: EF BP 66 % 55 - 100 % [facility] [employer] Work Phone: Est. RA Pressure 8 mmHg [facility] [employer] Work Phone: Fractional Shortening 2D 28 % 28 - 44 % [facility] [employer] Work Phone: Interpretation and review of laboratory results Abnormal [facility] [employer] Work Phone: IVC Diameter 2.5 cm [facility] [employer] Work Phone: IVSd 1 cm Abnormal 0.6 - 0.9 cm [facility] Work Phone: LA Volume 2C 123 mL Abnormal 22 - 52 mL [facility] Work Phone: LA Volume 4C 154 mL Abnormal 22 - 52 mL [facility] Work Phone: LA Volume A/L 155 mL [facility] Work Phone: LA Volume BP 147 mL Abnormal 22 - 52 mL [place] Work Phone: LA Volume Index 2C 60 mL/m2 Abnormal 16 - 34 mL/m2 [place] Work Phone: LA Volume Index 4C 75 mL/m2 Abnormal 16 - 34 mL/m2 [place] Work Phone: LA Volume Index A/L 75 mL/m2 16 - 34 mL/m2 [place] Work Phone: LA Volume Index BP 71 ml/m2 Abnormal 16 - 34 ml/m2 [place] Work Phone: LV EDV A2C 86 mL [place] Work Phone: LV EDV A4C 84 mL [place] Work Phone: LV EDV BP 85 mL 56 - 104 mL [employer] Phone: LV EDV Index A2C 42 mL/m2 [employer] Phone: LV EDV Index A4C 41 mL/m2 [place] Work Phone: LV EDV Index BP 41 mL/m2 [place] Work Phone: LV Ejection Fraction A2C 69 % [place] Work Phone: LV Ejection Fraction A4C 63 % [employer] Phone: LV ESV A2C 27 mL [employer] Phone: LV ESV A4C 31 mL [place] Work Phone: LV ESV BP 29 mL 19 - 49 mL [place] Work Phone: LV ESV Index A2C 13 mL/m2 [place] Work Phone: LV ESV Index A4C 15 mL/m2 [place] Work Phone: LV ESV Index BP 14 mL/m2 [place] Work Phone: LV Mass 2D 148.1 g 67 - 162 g [place] Work Phone: LV Mass 2D Index 71.9 g/m2 43 - 95 g/m2 [place] Work Phone: LV RWT Ratio 0.39 [facility] [employer] Work Phone: LVIDd 4.6 cm 3.9 - 5.3 cm [facility] Work Phone: LVIDd Index 2.23 cm/m2 [facility] [employer] Work Phone: LVIDs 3.3 cm [facility] [employer] Work Phone: LVIDs Index 1.6 cm/m2 [facility] [employer] Work Phone: LVOT Area 2 cm2 [facility] [employer] Work Phone: LVOT Cardiac Output 4.2 liter/minute [facility] [employer] Work Phone: LVOT Diameter 1.6 cm [facility] [employer] Work Phone: LVOT Mean Gradient 3 mmHg [facility] [employer] Work Phone: LVOT Peak Gradient 5 mmHg [facility] [employer] Work Phone: LVOT Peak Velocity 1.1 m/s [facility] [employer] Work Phone: LVOT Stroke Volume Index 21.1 mL/m2 [facility] [employer] Work Phone: LVOT SV 43.4 ml [facility] [employer] Work Phone: LVOT VTI 21.6 cm [facility] [employer] Work Phone: LVOT:AV VTI Index 0.59 [facility] [employer] Work Phone: LVPWd 0.9 cm 0.6 - 0.9 cm [facility] [employer] Work Phone: MR VTI 156 cm [facility] [employer] Work Phone: MV Area by VTI 1.2 cm2 [facility] [employer] Work Phone: MV Max Velocity 1.9 m/s [facility] [employer] Work Phone: MV Mean Gradient 5 mmHg [facility] [employer] Work Phone: MV Mean Velocity 1 m/s [facility] [employer] Work Phone: MV Peak Gradient 15 mmHg [facility] [employer] Work Phone: MV Regurg Velocity PISA 5.4 m/s [facility] Work Phone: [phone] MV VTI 36.8 cm [facility] [employer] Phone: MV:LVOT VTI Index 1.7 [facility] [employer] Phone: [phone] Pulmonary Artery EDP 7 mmHg [facility] [employer] Phone: RA Area 4C 108.3 mL [facility] [employer] Phone: [phone] RA Area 4C 103.9 mL [facility] [employer] Phone: RV Basal Dimension 3.6 cm [facility] [employer] Phone: RV Longitudinal Dimension 7.6 cm [facility] [employer] Phone: RV Mid Dimension 2.4 cm [facility] [employer] Phone: RVSP 60 mmHg [facility] [employer] Phone: [phone] TAPSE 1.4 cm Abnormal 1.7 cm [facility] [employer] Phone: [phone] TR Max Velocity 3.62 m/s [facility] [employer] Phone: [phone] TR Peak Gradient 53 mmHg [facility] [employer] Phone: [phone] [facility] [employer] Phone: [phone] US Heart Transthoracicon Left Ventricle: Left ventricle size [...] given. CV CPACS 30on 02-16-2024 30 Normal [facility] [id number] 02-16-2024 [id number] Normal [facility] [id number] System Analyst following case for Discharge Needs. Normal [facility] [id number] 02-16-[id number] [facility] 36on 02-16-2024 36 Patient was no call no show for new FINANCIAL ACCOUNTING ANALYST visit for postmenopausal bleeding. It looks like she was admitted to the hospital. Arrange visit in our office in 4 weeks for FINANCIAL ACCOUNTING ANALYST exam/evaluate bleeding. Normal [facility] CBC W Auto Differential pane l (Bld)Ordered By: Nitin Orellana on 02-16-2024 Erythrocyte distribution width (RBC) [Ratio] 16.6 % High 11.5 - 15.0 % [facility] Hematocrit (Bld) [Volume fraction] 35.5 % 35.0 - 47.0 % [facility] Hemoglobin (Bld) [Mass/Vol] 10.5 g/dL Low 11.7 - 16.0 g/dL [facility] MCH (RBC) [Entitic mass] 27.6 pg 26.0 - 34.0 pg [facility] MCHC (RBC) [Mass/Vol] 29.6 % Low 30.5 - 36.0 % [facility] MCV (RBC) [Entitic vol] 93.2 fL 77.0 - 99.0 fL [facility] Platelet mean volume (Bld) [Entitic vol] 12.4 fL 9.0 - 12.7 fL [facility] Platelets (Bld) [#/Vol] 103 10*3/uL Low 140 - 440 10*3/uL [facility] RBC (Bld) [#/Vol] 3.81 10*6/uL 3.80 - 5.2 0 10*6/uL [facility] WBC (Bld) [#/Vol] 16 10*3/uL High 3.6 - 10.7 10*3/uL [facility] CBC WITH AUTO DIFFERENTIALon 02-16-2024 Erythrocyte distribution width (RBC) [Ratio] 16.6 % High 11.5-15.0 [facility] Comment on above: Performed By: #### L [id number], [id number] ####Digital Watch Assembler: AMAN SANTOS ([id number])[facility] ([facility])[address] [place] [address] Hematocrit (Bld) [Volume fraction] 35.5 % Normal 35.0-47.0 [facility] Comment on above: Performed By: #### L [id number], [id number] ####Digital Watch Assembler: AMAN SANTOS ([id number])[facility] ([facility])[address] [place] [address] Hemoglobin (Bld) [Mass/Vol] 10.5 g/dL Low 11.7-16.0 [facility] Comment on above: Performed By: #### L [id number], [id number] ####Digital Watch Assembler: AMAN [id number])[facility] [place] (SBHLAB)[address] MCH (RBC) [Entitic mass] 27.6 pg Normal 26.0-34.0 [facility] Comment on above: Performed By: #### L [id number], [id number] ####Digital Watch Assembler: AMANAGA SANTOS ([id number])[facility]ENTERBessy MARTINEZCROWNPOINT HEALTH CARE [facility]ACILITYN (SBHLAB)[address] MCHC 29.6 % Low 30.5-36.0 [facility] Comment on above: Performed By: #### L [id number], [id number] ####Digital Watch Assembler: AMAN TOM ([id number])[facility]ENTERBessy MARTNIEZCROWNPOINT HEALTH [facility]ARE FACILITYN (SBHLAB)[address] MCV (RBC) [Entitic vol] 93.2 fL Normal 77.0-99.0 [facility] Comment on above: Performed By: #### L [id number], [id number] ####Digital Watch Assembler: AMAN BEBETOCER ([id number])[facility]ENTERBessy [place] (SBHLAB)[address] Platelet mean volume (Bld) [Entitic vol] 12.4 fL Normal 9.0-12.7 [facility] Comment on above: Performed By: #### L [id number], [id number] ####Digital Watch Assembler: AMAN SANTOS ([id number])[facility]ENTERBessy MARTINEZCROWNPOINT [facility]ILITYN (SBHLAB)[address] Platelets (Bld) [#/Vol] 103 10*3/uL Low 140-440 [facility] Comment on above: Performed By: #### L [id number], [id number] ####Digital Watch Assembler: AMAN SANTOS ([id number])[facility]ENTERBessy MARTINEZCROWNPOINT [facility]ILITYN (SBHLAB)[address] RBC (Bld) [#/Vol] 3.81 10*6/uL Normal 3.80-5.20 [facility] Comment on above: Performed By: #### L [id number], [id number] ####Digital Watch Assembler: AMAN SANTOS ([id number])[facility] JUANCROWNPOINT [facility]ALTH [facility]ARE [facility]ACILITYN (SBHLAB)[address] WBC (Bld) [#/Vol] 16.0 10*3/uL High 3.6-10.7 [facility] Comment on above: Performed By: #### L [id number], [id number] ####Digital Watch Assembler: AMAN SANTOS ([id number])[facility] JUANCROWNPOINT [facility]ALTH [facility]ARE [facility]ACILITYN (SBHLAB)[address] COMPREHENSIVE METABOLIC PANE Amaury 02-16-2024 Albumin [Mass/Vol] 3.8 g/dL Normal 3.4-4.8 [facility] Comment on above: Performed By: #### L [id number], [id number] ####Digital Watch Assembler: AMAN SANTOS ([id number])[facility] ALP [Catalytic activity/Vol] 77 U/L Normal 40-150 [facility] Comment on above: Performed By: #### L [id number], [id number] ####Digital Watch Assembler: AMAN SANTOS ([id number])[facility] ([facility] ALT [Catalytic activity/Vol] 17 U/L Normal <30 [facility] Comment on above: Performed By: #### L [id number], [id number] ####Digital Watch Assembler: AMAN SANTOS ([id number])[facility] BARBCROWNPOINT [facility]ILITYN (SBHLAB)[address] Anion gap [Moles/Vol] 12 mmol/L Normal 3-13 [facility] Comment on above: Performed By: #### L [id number], [id number] ####Digital Watch Assembler: AMAN SANTOS ([id number])[facility] (SBHLAB)[address] AST [Catalytic activity/Vol] 15 U/L Normal <34 [facility] Comment on above: Performed By: #### L [id number], [id number] ####Digital Watch Assembler: AMAN SANTOS ([id number])[facility] [place] (SBHLAB)[address] Bilirubin [Mass/Vol] 1.6 mg/dL High <1.2 [facility] Comment on above: Performed By: #### L [id number], [id number] ####Digital Watch Assembler: AMAN SANTOS ([id number])[facility] [place] (SBHLAB)[address] Calcium [Mass/Vol] 9.1 mg/dL Normal 8.8-10.0 [facility] Comment on above: Performed By: #### L [id number], [id number] ####Digital Watch Assembler: AMAN SANTOS ([id number])[facility]ENTERBessy MARTINEZCROWNPOINT HEALTH CARE [facility]ACILITYN (SBHLAB)[address] Chloride [Moles/Vol] 101 mmol/L Normal 98-107 [facility] Comment on above: Performed By: #### L [id number], [id number] ####Digital Watch Assembler: AMAN SANTOS ([id number])[facility] [place] (SBHLAB)[address] [place] [address] [place] CO2 [Moles/Vol] 31 mmol/L Normal 23-31 [facility] Comment on above: Performed By: #### L [id number], [id number] ####Digital Watch Assembler: AMAN SANTOS ([id number])[facility] [place] (SBHL[facility])[address] Creatinine [Mass/Vol] 0.72 mg/dL Normal 0.57-1.11 [facility] Comment on above: Performed By: #### L [id number], [id number] ####Digital Watch Assembler: AMAN SANTOS ([id number])[facility] [place] (SBHL[place])[address] GLOMERULAR FILTRATION RATE ML/MIN/1.73 SQ M.PREDICTED 89.0 mL/min/1.73m*2 Normal >60.0 [facility] Comment on above: Result Comment: Calc ulation based on the Chronic Kidney Disease Epidemiology Collaboration (CKD-EPI) equation refit without adjustment for race Performed By: #### L [id number], LAB17 ####Digital Watch Assembler: AMAN SANTOS ([id number])[facility] [place] (SBHLAB)[address] Glucose [Mass/Vol] 113 mg/dL Normal 82-115 [facility] Comment on above: Performed By: #### L [id number], LAB17 ####Digital Watch Assembler: AMAN SANTOS ([id number])[facility] BARBCROWNPOINT [facility]ALTH CARE FACILITYN (SBHLAB)[address] Potassium [Moles/Vol] 2.8 mmol/L Low 3.5-5.1 [facility] Comment on above: Result Comment: [facility] potassium values may be up to 0.5 mmol/L lower than serum values. Performed By: #### L [id number], LAB17 ####Digital Watch Assembler: AMAN SANTOS ([id number])[facility] [place] ([facility])[address] Protein [Mass/Vol] 6.0 g/dL Low 6.4-8.3 [facility] Comment on above: Performed By: #### L [id number], LAB17 ####Digital Watch Assembler: AMAN SANTOS ([id number])[facility] [place] (SBHLAB)[address] [place] [address] [place] Sodium [Moles/Vol] 144 mmol/L Normal 136-145 [facility] Comment on above: Performed By: #### L [id number], LAB17 ####Digital Watch Assembler: AMAN SANTOS ([id number])[facility] [place] (SBHLAB)[address] [place] [address] [place] Urea nitrogen [Mass/Vol] 12 mg/dL Normal 9-23 [facility] Comment on above: Performed By: #### L [id number], LAB17 ####Digital Watch Assembler: AMAN SANTOS ([id number])[facility] [place] (SBHLAB)[address] [place] [address] [facility] Comprehensive metabolic 1998 panelon 02-16-2024 Albumin [Mass/Vol] 3.8 g/dL 3.4 - 4.8 g/dL [facility] ALP [Catalytic activity/Vol] 77 U/L 40 - 150 U/L [facility] ALT [Catalytic activity/Vol] 17 U/L NINF - 30 U/L [facility] Anion gap [Moles/Vol] 12 mmol/L 3 - 13 mmol/L [facility] AST [Catalytic activity/Vol] 15 U/L NINF - 34 U/L [facility] Bilirubin [Mass/Vol] 1.6 mg/dL High NINF - 1.2 mg/dL [facility] Calcium [Mass/Vol] 9.1 mg/dL 8.8 - 10. 0 mg/dL [facility] Chloride [Moles/Vol] 101 mmol/L 98 - 10 7 mmol/L [facility] CO2 [Moles/Vol] 31 mmol/L 23 - 31 mmol/L [facility] Creatinine [Mass/Vol] 0.72 mg/dL 0.57 - 1.11 mg/dL [facility] GFR/1.73 sq M.predicted (S/P/Bld) [Vol rate/Area] 89 mL/min - PINF [facility] Comment on above: Calculation based on the Chronic Kidney Disease Epidemiology Collaboration (CKD-EPI) equation refit without adjustment for race Glucose [Mass/Vol] 113 mg/dL 82 - 115 mg/dL [facility] Interpretation and review of laboratory results Abnormal [facility] Potassium [Moles/Vol] 2.8 mmol/L Low 3.5 - 5.1 mmol/L [facility] Comment on above: Plasma potassium imer ues may be up to 0.5 mmol/L lower than serum values. Protein [Mass/Vol] 6 g/dL Low 6.4 - 8.3 g/dL [facility] Sodium [Moles/Vol] 144 mmol/L 136 - 145 mmol/L [facility] Urea nitrogen [Mass/Vol] 12 mg/dL 9 - 23 mg/dL [facility] Consulton 02-16-2024 Consult Normal [facility] Laboratory - Chemistry and C hemistry - challengeon 02-16-2024 Magnesium [Mass/Vol] 1.8 mg/dL 1.6 - 2 .6 mg/dL [facility] Laboratory - Hematology and Cell countson 02-16-2024 Anisocytosis Ql (Bld) Slight Abnormal (none) [facility] Band form neutrophils (Bld) [#/Vol] 0.2 10*3/uL High NINF - 0.0 10*3/uL [facility] Band form neutrophils/100 WBC (Bld) 1 % High NINF - 0 % [facility] Hypochromia Ql (Bld) Moderate Abnormal (none) [facility] Lymphocytes (Bld) [#/Vol] 1.8 10*3/uL 1.0 - 4.3 10*3/uL [facility] Lymphocytes/100 WBC (Bld) 11 % Low 15 - 45 % [facility] Monocytes (Bld) [#/Vol] 3.2 10*3/uL High 0.0 - 0.9 10*3/uL [facility] Monocytes/100 WBC (Bld) 20 % High 5 - 13 % [facility] Neutrophils (Bld) [#/Vol] 11 10*3/uL High 1.8 - 7.5 10*3/uL [facility] Poikilocytosis LM Ql (Bld) Slight Abnormal (none) [facility] RBC morphology finding Nom (Bld) abnormal [facility] Segmented neutrophils/100 WBC (Bld) 68 % 38 - 82 % [facility] Stomatocytes LM Ql (Bld) Moderate Abnormal (none) [facility] MAGNESIUMon 02-16-2024 Magnesium [Mass/Vol] 1.8 mg/dL Normal 1.6-2.6 [facility] Comment on above: Result Comment: LEOBARDO Gill COMMENTS:Higher values can be expected in females during menses. Performed By: #### L [id number], LAB17 ####Digital Watch Assembler: AMAN SANTOS ([id number])[facility] ([facility])[address] [place] [address] MANUAL DIFFERENTIAL (CELLAVI TANYA)on 02-16-2024 ANISOCYTOSIS PRESENCE IN BLOOD BY LIGHT MICROSCOPY Slight Abnormal (none) [facility] Comment on above: Performed By: #### L [id number], [id number] ####Digital Watch Assembler: AMAN SANTOS ([id number])[facility] [place] (SBHLAB)[address] BAND NEUTROPHILS TOTAL PER COUNTED LEUKOCYTES BY MANUAL COUNT 1 Normal [facility] Comment on above: Performed By: #### L [id number], [id number] ####Digital Watch Assembler: AMAN SANTOS ([id number])[facility] [place] (SBHLAB)[address] BANDS (10*3/UL) IN BLOOD-CELLAVISION 0.2 10*3/uL High <=0.0 [facility] Comment on above: Performed By: #### L [id number], [id number] ####Digital Watch Assembler: AMAN SANTOS ([id number])[facility] [place] (SBHLAB)[address] BASOPHILS TOTAL PER COUNTED LEUKOCYTES BY MANUAL COUNT Normal [facility] Comment on above: Performed By: #### L [id number], [id number] ####Digital Watch Assembler: AMAN SANTOS ([id number])[facility] [place] (SBHLAB)[address] BLASTS TOTAL PER COUNTED LEUKOCYTES BY MANUAL COUNT Normal [facility] Comment on above: Performed By: #### L [id number], [id number] ####Digital Watch Assembler: AMAN SANTOS ([id number])[facility] [place] ([facility])[address] EOSINOPHILS TOTAL PER COUNTED LEUKOCYTES BY MANUAL COUNT Normal [facility] Comment on above: Performed By: #### L [id number], [id number] ####Digital Watch Assembler: AMAN SANTOS ([id number])[facility] [place] (SB[facility])[address] HYPOCHROMIA (PRESENCE) IN BLOOD BY LIGHT MICROSCOPY Moderate Abnormal (none) [facility] Comment on above: Performed By: #### L [id number], [id number] ####Digital Watch Assembler: AMAN SANTOS ([id number])[facility] [place] (SBHL[facility])[address] [place] [address] [place] LYMPHOCYTES (10*3/UL) IN BLOOD-CELLAVISION 1.8 10*3/uL Normal 1.0-4.3 [facility] Comment on above: Performed By: #### L [id number], [id number] ####Digital Watch Assembler: AMAN SANTOS ([id number])[facility] [place] (SBHLAB)[address] [place] [address] [place] LYMPHOCYTES TOTAL PER COUNTED LEUKOCYTES BY MANUAL COUNT 11 Normal [facility] Comment on above: Performed By: #### L [id number], [id number] ####Digital Watch Assembler: AMAN TATECER ([id number])[facility] [place] (SBHLAB)[address] [place] [address] [place] LYMPHOCYTES/100 LEUKOCYTES IN BLOOD-CELLAVISION 11 % Low 15-45 [facility] Comment on above: Performed By: #### L [id number], [id number] ####Digital Watch Assembler: AMAN SANTOS ([id number])[facility] [place] (SB[facility])[address] METAMYELOCYTES TOTAL PER COUNTED LEUKOCYTES BY MANUAL COUNT [facility] Comment on above: Performed By: #### L [id number], [id number] ####Digital Watch Assembler: AMAN SANTOS ([id number])[facility] [place] (SBHLAB)[address] [place] [address] [place] MONOCYTES (10*3/UL) IN BLOOD-CELLAVISION 3.2 10*3/uL High 0.0-0.9 [facility] Comment on above: Performed By: #### L [id number], [id number] ####Digital Watch Assembler: AMAN SANTOS ([id number])[facility] [place] (SBHLAB)[address] [place] [address] [place] MONOCYTES TOTAL PER COUNTED LEUKOCYTES BY MANUAL COUNT 21 Normal [facility] Comment on above: Performed By: #### L [id number], [id number] ####Digital Watch Assembler: AMAN SANTOS ([id number])[facility] [place] (SBHLAB)[address] [place] [address] [place] MONOCYTES/100 LEUKOCYTES IN BLOOD-IBETH 20 % High 5-13 [facility] Comment on above: Performed By: #### L [id number], [id number] ####Digital Watch Assembler: AMAN SANTOS ([id number])[facility] [place] (SBHLAB)[address] [place] [address] [place] MYELOCYTES COUNTED BY MANUAL COUNT Normal [facility] Comment on above: Performed By: #### L [id number], [id number] ####Digital Watch Assembler: AMAN SANTOS ([id number])[facility] [place] (SBHLAB)[address] [place] [address] [place] NEUTROPHILS BAND FORM/100 LEUKOCYTES IN BLOOD-CELLAVISI 1 % High <=0 [facility] Comment on above: Performed By: #### L [id number], [id number] ####Digital Watch Assembler: AMAN SANTOS ([id number])[facility] [place] (SB[facility])[address] [place] [address] [place] NEUTROPHILS TOTAL PER COUNTED LEUKOCYTES BY MANUAL COUNT 72 Normal [facility] Comment on above: Performed By: #### L [id number], [id number] ####Digital Watch Assembler: AMAN SANTOS ([id number])[facility] (SBHLAB)[address] [place] [address] [place] POIKILOCYTOSIS (PRESENCE) IN BLOOD BY LIGHT MICROSCOPY Slight Abnormal (none) [facility] Comment on above: Performed By: #### L [id number], [id number] ####Digital Watch Assembler: AMAN SANTOS ([id number])[facility] ([facility])[address] [place] [address] [place] PROMYELOCYTES TOTAL PER COUNTED LEUKOCYTES BY MANUAL COUNT Normal [facility] Comment on above: Performed By: #### L [id number], [id number] ####Digital Watch Assembler: AMAN SANTOS ([id number])[facility] [place] ([facility])[address] [place] [address] [place] RBC MORPHOLOGY IN BLOOD abnormal Normal [facility] Comment on above: Performed By: #### L [id number], [id number] ####Digital Watch Assembler: AMAN SANTOS ([id number])[facility] [place] ([facility])[address] SEGMENTED NEUTROPHILS (10*3/UL) IN BLOOD-CELLAVISION 11.0 10*3/uL High 1.8-7.5 [facility] Comment on above: Performed By: #### L [id number], [id number] ####Digital Watch Assembler: AMAN SANTOS ([id number])[facility] [place] ([facility])[address] SEGMENTED NEUTROPHILS/100 LEUKOCYTES-CE 68 % Normal 38-82 [facility] Comment on above: Performed By: #### L [id number], [id number] ####Digital Watch Assembler: AMAN SANTOS ([id number])[facility] [place] (SB[facility])[address] STOMATOCYTES IN BLOOD BY LIGHT MICROSCOPY Moderate Abnormal (none) [facility] Comment on above: Performed By: #### L [id number], [id number] ####Digital Watch Assembler: AMAN SANTOS ([id number])[facility] [place] (SB[facility])[address] UNCLASSIFIED CELLS TOTAL PER COUNTED LEUKOCYTES BY MANUAL COUNT [facility] Comment on above: Performed By: #### L [id number], [id number] ####Digital Watch Assembler: AMAN SANTOS ([id number])[facility] [place] (SB[facility])[address] VARIANT LYMPHOCYTES TOTAL PER COUNTED LEUKOCYTES BY MANUAL COUNT [facility] Comment on above: Performed By: #### L [id number], [id number] ####Digital Watch Assembler: AMAN SANTOS ([phone])[facility] (SB[facility])[address] [place] [address] [place] Magnesium [Mass/Vol]on 02-15 Interpretation and review of laboratory results Normal [facility] Higher values can be expected in females during menses. [facility] No Panel Informationon 02-15 Atypical Lymphocytes Manual [facility] Health Bands Manual 1 [facility] Health Basophils Manual [facility] Health Blasts Manual [facility] Eosinophils Manual [facility] Interpretation and review of laboratory results Abnormal [facility] Lymphocytes Manual 11 [facility] Health Metamyelocytes Manual [facility] Monocytes Manual 21 [facility] Health Myelocytes Manual [facility] Neutrophils Manual 71 [facility] Promyelocytes Manual [facility] Unclassified Cells, Manual [facility] Nursing Noteon 02-16-2024 Nursing Note Normal [facility] Progress Noteon 02-16-2024 Progress Note Normal [facility] Progress Note Normal [facility] Progress Note Normal [facility] Progress Note Normal [facility] Progress Note Nutrition rescreen complete. Pt assigned a level one for nutrition care. Normal [facility] 30on 02-15-2024 30 Normal [facility] 36on 02-15-2024 36 Patient is currently hospitalized at [facility]. She needs to be scheduled for office cystoscopy in the [place] office in the next 3 to 4 weeks. Please contact the patient to schedule as an outpatient. Normal [facility] 36 Noted. Daughter had stated that she had done this about the pain and they are still waiting to hear back from them. Normal [facility] 36 Normal [facility] BLOOD CULTUREon 02-15-2024 Bacteria identified Cx Nom (Bld) Normal [facility] Comment on above: Performed By: #### L [id number] ####Digital Watch Assembler: VIVIAN PANTOJA ([id number])[facility] (SAC[facility])[address] [place] [address] C-REACTIVE PROTEINon 024 CRP [Mass/Vol] 39.3 mg/L High <5.0 [facility] Comment on above: Performed By: #### L [id number], LAB17 ####Digital Watch Assembler: AMAN SANTOS ([id number])[facility] (SBHLAB)[address] [place] [address] CBC W Auto Differential pane l (Bld)on 02-15-2024 Erythrocyte distribution width (RBC) [Ratio] 16.5 % High 11.5 - 15.0 % [facility] Hematocrit (Bld) [Volume fraction] 36.5 % 35.0 - 47.0 % [facility] Hemoglobin (Bld) [Mass/Vol] 11 g/dL Low 11.7 - 16.0 g/dL [facility] Interpretation and review of laboratory results Abnormal [facility] Health IPF 13 [facility] MCH (RBC) [Entitic mass] 27.6 pg 26.0 - 34.0 pg [facility] MCHC (RBC) [Mass/Vol] 30.1 % Low 30.5 - 36.0 % [facility] MCV (RBC) [Entitic vol] 91.7 fL 77.0 - 99.0 fL [facility] Platelet mean volume (Bld) [Entitic vol] 12.8 fL High 9.0 - 12.7 fL [facility] Platelets (Bld) [#/Vol] 101 10*3/uL Low 140 - 440 10*3/uL [facility] RBC (Bld) [#/Vol] 3.98 10*6/uL 3.80 - 5.2 0 10*6/uL [facility] WBC (Bld) [#/Vol] 19.4 10*3/uL High 3.6 - 10.7 10*3/uL [facility] CBC W Auto Differential pane l (Bld)Ordered By: Ya Raya on 02-15-2024 Erythrocyte distribution width (RBC) [Ratio] 16.7 % High 11.5 - 15.0 % [facility] Hematocrit (Bld) [Volume fraction] 40.4 % 35.0 - 47.0 % [facility] Hemoglobin (Bld) [Mass/Vol] 12.2 g/dL 11.7 - 16.0 g/dL [facility] Interpretation and review of laboratory results Abnormal [facility] MCH (RBC) [Entitic mass] 27.7 pg 26.0 - 34.0 pg [facility] MCHC (RBC) [Mass/Vol] 30.2 % Low 30.5 - 36.0 % [facility] MCV (RBC) [Entitic vol] 91.8 fL 77.0 - 99.0 fL [facility] Platelet mean volume (Bld) [Entitic vol] 12.8 fL High 9.0 - 12.7 fL [facility] Platelets (Bld) [#/Vol] 110 10*3/uL Low 140 - 440 10*3/uL [facility] RBC (Bld) [#/Vol] 4.4 10*6/uL 3.80 - 5.2 0 10*6/uL [facility] WBC (Bld) [#/Vol] 21.3 10*3/uL High 3.6 - 10.7 10*3/uL [facility] CBC WITH AUTO DIFFERENTIALon 02-15-2024 Erythrocyte distribution width (RBC) [Ratio] 16.5 % High 11.5-15.0 [facility] Comment on above: Performed By: #### L [id number], [id number] ####Digital Watch Assembler: AMAN SANTOS ([id number])[facility] ([facility])[address] [place] [address] Hematocrit (Bld) [Volume fraction] 36.5 % Normal 35.0-47.0 [facility] Comment on above: Performed By: #### L [id number], [id number] ####Digital Watch Assembler: AMAN SANTOS ([id number])[facility] ([facility])[address] [place] [address] Hemoglobin (Bld) [Mass/Vol] 11.0 g/dL Low 11.7-16.0 [facility] Comment on above: Performed By: #### L [id number], [id number] ####Digital Watch Assembler: AMAN SANTOS ([id number])[facility])[address] [place] [address] IPF 13 Normal [facility] Comment on above: Performed By: #### L [id number], [id number] ####Digital Watch Assembler: AMAN SANTOS ([id number])[facility] ([facility])[address] [place] [address] MCH (RBC) [Entitic mass] 27.6 pg Normal 26.0-34.0 [facility] Comment on above: Performed By: #### L [id number], [id number] ####Digital Watch Assembler: AMAN SANTOS ([id number])[facility] (SB[facility])[address] MCHC 30.1 % Low 30.5-36.0 [facility] Comment on above: Performed By: #### L [id number], [id number] ####Digital Watch Assembler: AMAN SANTOS ([id number])[facility]ENTER[facility]essy [facility]N (SBHLAB)[address] MCV (RBC) [Entitic vol] 91.7 fL Normal 77.0-99.0 [facility] Comment on above: Performed By: #### L [id number], [id number] ####Digital Watch Assembler: AMAN SANTOS ([id number])[facility]ENTER[facility] (SBHLAB)[address] [place] [address] Platelet mean volume (Bld) [Entitic vol] 12.8 fL High 9.0-12.7 [facility] Comment on above: Performed By: #### L [id number], [id number] ####Digital Watch Assembler: AMAN SANTOS ([id number])[facility]ENTERBessy MARTINEZCROWNPOINT [facility]ALTH [facility]ARE [facility]ACILITYN (SBHLAB)[address] Platelets (Bld) [#/Vol] 101 10*3/uL Low 140-440 [facility] Comment on above: Performed By: #### L [id number], [id number] ####Digital Watch Assembler: AMAN SANTOS ([phone])[facility]ENTERBessy MARTINEZCROWNPOINT [facility]ALTH [facility]ILITYN (SBHLAB)[address] RBC (Bld) [#/Vol] 3.98 10*6/uL Normal 3.80-5.20 [facility] Comment on above: Performed By: #### L [id number], [id number] ####Digital Watch Assembler: AMAN SANTOS ([id number])[facility]ENTERBessy MARTINEZCROWNPOINT [facility]ALTH [facility]ILITYN (SBHLAB)[address] WBC (Bld) [#/Vol] 19.4 10*3/uL High 3.6-10.7 [facility] Comment on above: Performed By: #### L [id number], [id number] ####Digital Watch Assembler: AMAN SANTOS ([id number])[facility] (SBHLAB)[address] Erythrocyte distribution width (RBC) [Ratio] 16.7 % High 11.5-15.0 [facility] Comment on above: Performed By: #### L [id number], [id number] ####Digital Watch Assembler: AMAN SANTOS ([id number])[facility] (SB[facility])[address] [place] [address] Hematocrit (Bld) [Volume fraction] 40.4 % Normal 35.0-47.0 [facility] Comment on above: Performed By: #### L [id number], [id number] ####Digital Watch Assembler: AMAN SANTOS ([id number])[facility] ([facility])[address] [place] [address] Hemoglobin (Bld) [Mass/Vol] 12.2 g/dL Normal 11.7-16.0 [facility] Comment on above: Performed By: #### L [id number], [id number] ####Digital Watch Assembler: AMAN SANTOS ([id number])[facility] ([facility])[address] [place] [address] MCH (RBC) [Entitic mass] 27.7 pg Normal 26.0-34.0 [facility] Comment on above: Performed By: #### L [id number], [id number] ####Digital Watch Assembler: AMAN SANTOS ([id number])[facility] ([facility])[address] [place] [address] MCHC 30.2 % Low 30.5-36.0 [facility] Comment on above: Performed By: #### L [id number], [id number] ####Digital Watch Assembler: AMAN SANTOS ([id number])[facility] (SB[facility])[address] MCV (RBC) [Entitic vol] 91.8 fL Normal 77.0-99.0 [facility] Comment on above: Performed By: #### L [id number], [id number] ####Digital Watch Assembler: AMAN SANTOS ([id number])[facility] (SB[facility]AB)[address] Platelet mean volume (Bld) [Entitic vol] 12.8 fL High 9.0-12.7 [facility] Comment on above: Performed By: #### L [id number], [id number] ####Digital Watch Assembler: AMAN SANTOS ([id number])[facility] ([facility])[address] Platelets (Bld) [#/Vol] 110 10*3/uL Low 140-440 [facility] Comment on above: Performed By: #### L [id number], [id number] ####Digital Watch Assembler: AMAN SANTOS ([id number])[facility] ([facility])[address] [place] [address] RBC (Bld) [#/Vol] 4.40 10*6/uL Normal 3.80-5.20 [facility] Comment on above: Performed By: #### L [id number], [id number] ####Digital Watch Assembler: AMAN SANTOS ([id number])[facility] ([facility])[address] [place] [address] WBC (Bld) [#/Vol] 21.3 10*3/uL High 3.6-10.7 [facility] Comment on above: Performed By: #### L [id number], [id number] ####Digital Watch Assembler: AMAN SANTOS ([id number])[facility] ([facility])[address] COMPLETE URINALYSISon 2023 BACTERIA (#/HPF) IN URINE Few Abnormal Negative [facility] Comment on above: Performed By: #### L [id number] ####Digital Watch Assembler: AMAN TOM ([id number])[facility] [place] (SB[facility])[address] BILIRUBIN, TOTAL PRESENCE IN URINE Negative Normal Negative [facility] Comment on above: Performed By: #### L [id number] ####Digital Watch Assembler: AMAN TOM ([id number])[facility] [place] (SB[facility])[address] Clarity (U) Turbid Abnormal Clear [facility] Comment on above: Performed By: #### L [id number] ####Digital Watch Assembler: AMAN MEDINAANGELA ([phone])[facility] [place] (SB[facility])[address] Color (U) Yellow Normal Lt. Yellow [facility] Comment on above: Performed By: #### L [id number] ####Digital Watch Assembler: AMAN MEDINAANGELA ([id number])[facility] [place] ([facility])[address] GLUCOSE (MG/DL) IN URINE Normal Normal Normal (<70) [facility] Comment on above: Performed By: #### L [id number] ####Digital Watch Assembler: AMAN MEDINAANGELA ([id number])[facility] [place] ([facility])[address] HEMOGLOBIN PRESENCE IN URINE 0.1 mg/dL Abnormal Negative [facility] Comment on above: Performed By: #### L [id number] ####Digital Watch Assembler: AMAN MEDINAANGELA ([id number])[facility] [place] ([facility])[address] HYALINE CASTS (#/LPF) IN URINE SEDIMENT BY MICROSCOPY 0-2 Abnormal Negative [facility] Comment on above: Performed By: #### L [id number] ####Digital Watch Assembler: AMAN HEARDOMID ([id number])[facility] [place] (SB[facility])[address] [place] [address] [place] Ketones Ql (U) Negative Normal Negative [facility] Comment on above: Performed By: #### L [id number] ####Digital Watch Assembler: AMAN SANTOS ([id number])[facility] (SBHLAB)[address] LEUKOCYTE ESTERASE PRESENCE IN URINE BY TEST STRIP Negative Normal Negative [facility] Comment on above: Performed By: #### L [id number] ####Digital Watch Assembler: AMAN SANTOS ([id number])[facility] [place] (SB[facility])[address] [place] [address] [place] MUCUS (#/LPF) IN URINE SEDIMENT Few Normal Negative [facility] Comment on above: Performed By: #### L [id number] ####Digital Watch Assembler: AMAN SANTOS ([id number])[facility] [place] ([facility])[address] NITRITE PRESENCE IN URINE Negative Normal Negative [facility] Comment on above: Performed By: #### L [id number] ####Digital Watch Assembler: AMAN SANTOS ([id number])[facility] [place] ([facility])[address] pH (U) 5.5 [pH] Normal 5.0-8.0 [facility] Comment on above: Performed By: #### L [id number] ####Digital Watch Assembler: AMAN SANTOS ([id number])[facility] [place] ([facility])[address] Protein (U) [Mass/Vol] 100 mg/dL Abnormal Negative [facility] Comment on above: Performed By: #### L [id number] ####Digital Watch Assembler: AMAN SANTOS ([id number])[facility] [place] (SB[facility])[address] [place] [address] [place] RBC (#/HPF) IN URINE SEDIMENT 6-10 Abnormal 0-2 [facility] Comment on above: Performed By: #### L [id number] ####Digital Watch Assembler: AMAN SANTOS ([id number])[facility] [place] ([facility])[address] Specific gravity (U) [Rel density] 1.019 Normal 1.005-1.030 [facility] Comment on above: Performed By: #### L [id number] ####Digital Watch Assembler: AMAN SANTOS ([id number])[facility] (SBHL[facility])[address] SQUAMOUS EPITHELIAL CELLS (#/HPF) IN URINE SEDIMENT 11-25 Abnormal 3-5 [facility] Comment on above: Performed By: #### L [id number] ####Digital Watch Assembler: AMAN SANTOS ([id number])[facility] (SB[facility])[address] UROBILINOGEN (MG/DL) IN URINE 3 mg/dL Abnormal Normal (0-1) [facility] Comment on above: Performed By: #### L [id number] ####Digital Watch Assembler: AMAN SANTOS ([phone])[facility] (SB[facility])[address] WBC (LEUKOCYTE) (#/HPF) IN URINE SEDIMENT 3-5 Normal 0-5 [facility] Comment on above: Performed By: #### L [id number] ####Digital Watch Assembler: AMAN SANTOS ([id number])[facility] (SB[facility])[address] COMPREHENSIVE METABOLIC PANE Amaury 02-15-2024 Albumin [Mass/Vol] 3.9 g/dL Normal 3.4-4.8 [facility] Comment on above: Performed By: #### L AB149, LAB17 ####Digital Watch Assembler: AMAN SANTOS ([id number])[facility] (SB[facility])[address] [place] [address] [place] ALP [Catalytic activity/Vol] 84 U/L Normal 40-150 [facility] Comment on above: Performed By: #### L AB149, LAB17 ####Digital Watch Assembler: AMAN SANTOS ([id number])[facility] [place] (SB[facility])[address] [place] [address] [place] ALT [Catalytic activity/Vol] 19 U/L Normal <30 [facility] Comment on above: Performed By: #### L AB149, LAB17 ####Digital Watch Assembler: AMAN SANTOS ([id number])[facility] [place] ([facility])[address] Anion gap [Moles/Vol] 8 mmol/L Normal 3-13 [facility] Comment on above: Performed By: #### L AB149, LAB17 ####Digital Watch Assembler: AMAN SANTOS ([id number])[facility] [place] ([facility])[address] AST [Catalytic activity/Vol] 16 U/L Normal <34 [facility] Comment on above: Performed By: #### L AB149, LAB17 ####Digital Watch Assembler: AMAN SANTOS ([id number])[facility] [place] ([facility])[address] Bilirubin [Mass/Vol] 1.6 mg/dL High <1.2 [facility] Comment on above: Performed By: #### L AB149, LAB17 ####Digital Watch Assembler: AMAN SANTOS ([id number])[facility] [place] (SB[facility])[address] [place] [address] [place] Calcium [Mass/Vol] 9.0 mg/dL Normal 8.8-10.0 [facility] Comment on above: Performed By: #### L AB149, LAB17 ####Digital Watch Assembler: AMAN SANTOS ([id number])[facility] [place] (SB[facility])[address] [place] [address] [place] Chloride [Moles/Vol] 102 mmol/L Normal 98-107 [facility] Comment on above: Performed By: #### L AB149, LAB17 ####Digital Watch Assembler: AMAN SANTOS ([id number])[facility] [place] (SB[facility]AB)[address] [place] [address] [place] CO2 [Moles/Vol] 33 mmol/L High 23-31 [facility] Comment on above: Performed By: #### L AB149, LAB17 ####Digital Watch Assembler: AMAN SANTOS ([id number])[facility]ENTERBessy MARTINEZISAMARN (SBHLAB)[address] Creatinine [Mass/Vol] 0.56 mg/dL Low 0.57-1.11 [facility] Comment on above: Performed By: #### L AB149, LAB17 ####Digital Watch Assembler: AMAN SANTOS ([phone])[facility]ENTERBessy [facility]CR[facility] (SBHLAB)[address] GLOMERULAR FILTRATION RATE ML/MIN/1.73 SQ M.PREDICTED >90.0 Normal >60.0 [facility] Comment on above: Result Comment: Calc ulation based on the Chronic Kidney Disease Epidemiology Collaboration (CKD-EPI) equation refit without adjustment for race Performed By: #### L AB149, LAB17 ####Digital Watch Assembler: AMAN SANTOS ([phone])[facility]ENTER[facility] [place] (SB[facility])[address] [place] [address] [place] Glucose [Mass/Vol] 130 mg/dL High 82-115 [facility] Comment on above: Performed By: #### L AB149, LAB17 ####Digital Watch Assembler: AMAN SANTOS ([id number])[facility]ENTERBessy [facility]CR[facility] (SB[facility])[address] [place] [address] [place] Potassium [Moles/Vol] 2.9 mmol/L Low 3.5-5.1 [facility] Comment on above: Performed By: #### L AB149, LAB17 ####Digital Watch Assembler: AMAN SANTOS ([id number])[facility] [place] (SB[facility])[address] [place] [address] [place] Protein [Mass/Vol] 6.3 g/dL Low 6.4-8.3 [facility] Comment on above: Performed By: #### L AB149, LAB17 ####Digital Watch Assembler: AMAN SANTOS ([phone])[facility] [place] ([facility])[address] Sodium [Moles/Vol] 143 mmol/L Normal 136-145 [facility] Comment on above: Performed By: #### L AB149, LAB17 ####Digital Watch Assembler: AMAN SANTOS ([id number])[facility] [place] ([facility])[address] Urea nitrogen [Mass/Vol] 14 mg/dL Normal 9-23 [facility] Comment on above: Performed By: #### L AB149, LAB17 ####Digital Watch Assembler: AMAN SANTOS ([id number])[facility] (SB[facility])[address] Albumin [Mass/Vol] 4.4 g/dL Normal 3.5-5.0 [facility] Comment on above: Performed By: #### L AB17 ####Digital Watch Assembler: AMAN SANTOS ([id number])[facility] ([facility])[address] ALP [Catalytic activity/Vol] 94 U/L Normal 38-126 [facility] Comment on above: Performed By: #### L AB17 ####Digital Watch Assembler: AMAN SANTOS ([id number])[facility] (SB[facility])[address] ALT [Catalytic activity/Vol] 20 U/L Normal 0-34 [facility] Comment on above: Performed By: #### L AB17 ####Digital Watch Assembler: AMAN SANTOS ([id number])[facility] (SB[facility])[address] [place] [address] [place] Anion gap [Moles/Vol] 7 mmol/L Normal 3-13 [facility] Comment on above: Performed By: #### L AB17 ####Digital Watch Assembler: AMAN SANTOS ([phone])[facility] ([facility])[address] [place] [address] [place] AST [Catalytic activity/Vol] 18 U/L Normal 15-46 [facility] Comment on above: Performed By: #### L AB17 ####Digital Watch Assembler: AMAN SANTOS ([id number])[facility]ENTERBessy MARTINEZCROWNPOINT [facility]ACILITYN (SBHLAB)[address] Bilirubin [Mass/Vol] 1.8 mg/dL High 0.2-1.3 [facility] Comment on above: Performed By: #### L AB17 ####Digital Watch Assembler: AMAN SANTOS ([id number])[facility] ([facility])[address] Calcium [Mass/Vol] 9.1 mg/dL Normal 8.4-10.4 [facility] Comment on above: Performed By: #### L AB17 ####Digital Watch Assembler: AMAN HEARDOMID ([id number])[facility] (HLAB)[address] Chloride [Moles/Vol] 100 mmol/L Normal 98-107 [facility] Comment on above: Performed By: #### L AB17 ####Digital Watch Assembler: AMAN SANTOS ([id number])[facility] CO2 [Moles/Vol] 36 mmol/L High 22-30 [facility] Comment on above: Performed By: #### L AB17 ####Digital Watch Assembler: AMAN SANTOS ([id number])[facility] (HLAB)[address] Creatinine [Mass/Vol] 0.69 mg/dL Normal 0.52-1.04 [facility] Comment on above: Performed By: #### L [id number] ####Digital Watch Assembler: AMAN SANTOS ([phone])[facility] ([facility])[address] GLOMERULAR FILTRATION RATE ML/MIN/1.73 SQ M.PREDICTED >90.0 Normal >60.0 [facility] Comment on above: Result Comment: Calc ulation based on the Chronic Kidney Disease Epidemiology Collaboration (CKD-EPI) equation refit without adjustment for race Performed By: #### L [id number] ####Digital Watch Assembler: AMAN SANTOS ([phone])[facility] CENTERBsesy JUANYOSELYN ([facility])[address] Glucose [Mass/Vol] 108 mg/dL High 70-100 [facility] Comment on above: Performed By: #### L [id number] ####Digital Watch Assembler: AMAN SANTOS ([phone])[facility] CENTERBessy [facility]ERS[facility] ([facility])[address] Potassium [Moles/Vol] 3.1 mmol/L Low 3.5-5.1 [facility] Comment on above: Performed By: #### L [id number] ####Digital Watch Assembler: AMAN SANTOS ([id number])[facility] ([facility])[address] Protein [Mass/Vol] 7.1 g/dL Normal 6.3-8.2 [facility] Comment on above: Performed By: #### L [id number] ####Digital Watch Assembler: AMAN SANTOS ([phone])[facility]ITAL[facility] ([facility])[address] Sodium [Moles/Vol] 143 mmol/L Normal 135-145 [facility] Comment on above: Performed By: #### L [id number] ####Digital Watch Assembler: AMAN SANTOS ([phone])[facility]ENT[facility]LYN ([facility])[address] Urea nitrogen [Mass/Vol] 17 mg/dL Normal 7-17 [facility] Comment on above: Performed By: #### L [id number] ####Digital Watch Assembler: AMAN SANTOS ([id number])[facility] ([facility])[address] CRP [Mass/Vol]Ordered By: St sukhi Alvarez on 02-15-2024 Interpretation and review of laboratory results Abnormal [facility] CT LUMBAR SPINE WO IV CONTRA STon 02-15-2024 CT LUMBAR SPINE WO IV CONTRAST Normal [facility] CT Lumbar spine WO contrasto n 02-15-2024 [...] MD Electronically Signed Date/Time: 02/15/2024 1:29 PM [facility] Patient Name: ALTA MOYA : [...] A persistent pericardial effusion is partially imaged. [facility] Azucena Yanez MD - 02/15/2024 [...] Electronically Signed Date/Time: 02/15/2024 1:29 PM EST [facility] CT Lumbar spine WO contrastO rdered By: Azucena Yanez on 02-15-2024 [facility] Work Phone: Comprehensive metabolic 1998 panelon 02-15-2024 Albumin [Mass/Vol] 3.9 g/dL 3.4 - 4.8 g/dL [facility] ALP [Catalytic activity/Vol] 84 U/L 40 - 150 U/L [facility] ALT [Catalytic activity/Vol] 19 U/L NINF - 30 U/L [facility] Anion gap [Moles/Vol] 8 mmol/L 3 - 13 mmol/L [facility] AST [Catalytic activity/Vol] 16 U/L NINF - 34 U/L [facility] Bilirubin [Mass/Vol] 1.6 mg/dL High NINF - 1.2 mg/dL [facility] Calcium [Mass/Vol] 9 mg/dL 8.8 - 10. 0 mg/dL [facility] Chloride [Moles/Vol] 102 mmol/L 98 - 10 7 mmol/L [facility] CO2 [Moles/Vol] 33 mmol/L High 23 - 31 mmol/L [facility] Creatinine [Mass/Vol] 0.56 mg/dL Low 0.57 - 1.11 mg/dL [facility] GFR/1.73 sq M.predicted (S/P/Bld) [Vol rate/Area] - PINF [facility] Comment on above: Calculation based on the Chronic Kidney Disease Epidemiology Collaboration (CKD-EPI) equation refit without adjustment for race Glucose [Mass/Vol] 130 mg/dL High 82 - 115 mg/dL [facility] Interpretation and review of laboratory results Abnormal [facility] Potassium [Moles/Vol] 2.9 mmol/L Low 3.5 - 5.1 mmol/L [facility] Protein [Mass/Vol] 6.3 g/dL Low 6.4 - 8.3 g/dL [facility] Sodium [Moles/Vol] 143 mmol/L 136 - 145 mmol/L [facility] Urea nitrogen [Mass/Vol] 14 mg/dL 9 - 23 mg/dL [facility] Albumin [Mass/Vol] 4.4 g/dL 3.5 - 5.0 g/dL [facility] ALP [Catalytic activity/Vol] 94 U/L 38 - 126 U/L [facility] ALT [Catalytic activity/Vol] 20 U/L 0 - 34 U/L [facility] Anion gap [Moles/Vol] 7 mmol/L 3 - 13 mmol/L [facility] AST [Catalytic activity/Vol] 18 U/L 15 - 46 U/L [facility] Bilirubin [Mass/Vol] 1.8 mg/dL High 0.2 - 1 .3 mg/dL [facility] Calcium [Mass/Vol] 9.1 mg/dL 8.4 - 10. 4 mg/dL [facility] Chloride [Moles/Vol] 100 mmol/L 98 - 10 7 mmol/L [facility] CO2 [Moles/Vol] 36 mmol/L High 22 - 30 mmol/L [facility] Creatinine [Mass/Vol] 0.69 mg/dL 0.52 - 1.04 mg/dL [facility] GFR/1.73 sq M.predicted (S/P/Bld) [Vol rate/Area] - PINF [facility] Comment on above: Calculation based on the Chronic Kidney Disease Epidemiology Collaboration (CKD-EPI) equation refit without adjustment for race Glucose [Mass/Vol] 108 mg/dL High 70 - 100 mg/dL [facility] Interpretation and review of laboratory results Abnormal [facility] Potassium [Moles/Vol] 3.1 mmol/L Low 3.5 - 5.1 mmol/L [facility] Protein [Mass/Vol] 7.1 g/dL 6.3 - 8.2 g/dL [facility] Sodium [Moles/Vol] 143 mmol/L 135 - 145 mmol/L [facility] Urea nitrogen [Mass/Vol] 17 mg/dL 7 - 17 mg/dL [facility] Consulton 02-15-[address] [facility] Consult Vancomycin therapy h as been discontinued by Dr. Gracia on 02-15-24. Thank you for the consult. Pharmacy signing off for vancomycin dosing. Diane Coto [facility], Date: 02/15/24 Time: 1:[address] [facility] Consult Normal [facility] ECG 12-LEADon 02-15-2024 ECG 12-LEAD IMPRESSION: SINUS ARRHYTHMIA Probable anterior infarct, age indeterminate Electronically Signed On 02-15-2024 13:42:34 EST by Ovidio Price Normal [facility] ED Nursing Noteon 02-15-2024 ED Nursing Note Attempted PIV x2 unsuccessfully; asked another RN for assistance. Normal [facility] LACTIC ACID WITH REFLEXon Lactate [Moles/Vol] 1.4 mmol/L Normal 0.7-2.0 [facility] Comment on above: Performed By: #### L [id number] ####Digital Watch Assembler: AMAN SANTOS ([id number])[facility]ENTERISAMAR ([facility])[address] [place] [address] Laboratory - Chemistry and C hemistry - challengeOrdered By: Ino Alvarez on 02-15-2024 CRP [Mass/Vol] 39.3 mg/L High NINF - 5.0 mg/L [facility] Laboratory - Chemistry and C hemistry - challengeon 02-15-2024 Lactate [Moles/Vol] 1.4 mmol/L 0.7 - 2. 0 mmol/L [facility] Laboratory - Hematology and Cell countson 02-15-2024 Anisocytosis Ql (Bld) Slight Abnormal (none) [facility] Band form neutrophils (Bld) [#/Vol] 0.4 10*3/uL High NINF - 0.0 10*3/uL [facility] Band form neutrophils/100 WBC (Bld) 2 % High NINF - 0 % [facility] Dacrocytes LM Ql (Bld) Rare Abnormal (none) [facility] Giant platelets LM Ql (Bld) Rare Abnormal (none) [facility] Hypochromia Ql (Bld) Slight Abnormal (none) [facility] Lymphocytes (Bld) [#/Vol] 1 10*3/uL 1.0 - 4.3 10*3/uL [facility] Lymphocytes/100 WBC (Bld) 5 % Low 15 - 45 % [facility] Monocytes (Bld) [#/Vol] 4.9 10*3/uL High 0.0 - 0.9 10*3/uL [facility] Monocytes/100 WBC (Bld) 25 % High 5 - 13 % [facility] Neutrophils (Bld) [#/Vol] 13.6 10*3/uL High [...] 0.6 10*3/uL High NINF - 0.0 10*3/uL [facility] Band form neutrophils/100 WBC (Bld) 3 % High NINF - 0 % [facility] Eosinophils (Bld) [#/Vol] 0.2 10*3/uL 0.0 - 0.5 10*3/uL [facility] Eosinophils/100 WBC (Bld) 1 % 0 - 6 % [facility] Lymphocytes (Bld) [#/Vol] 0.9 10*3/uL Low 1.0 - 4.3 10*3/uL [facility] Lymphocytes/100 WBC (Bld) 4 % Low 15 - 45 % [facility] Monocytes (Bld) [#/Vol] 2.3 10*3/uL High 0.0 - 0.9 10*3/uL [facility] Monocytes/100 WBC (Bld) 11 % 5 - 13 % [facility] Neutrophils (Bld) [#/Vol] 17.9 10*3/uL High 1.8 - 7.5 10*3/uL [facility] Poikilocytosis LM Ql (Bld) Slight Abnormal (none) [facility] RBC morphology finding Nom (Bld) abnormal [facility] Segmented neutrophils/100 WBC (Bld) 81 % 38 - 82 % [facility] Stomatocytes LM Ql (Bld) Moderate Abnormal (none) [facility] MANUAL DIFFERENTIAL (CELLAVI TANYA)on 02-15-2024 ANISOCYTOSIS PRESENCE IN BLOOD BY LIGHT MICROSCOPY Slight Abnormal (none) [facility] Comment on above: Performed By: #### L [id number], [id number] ####Digital Watch Assembler: AMAN SANTOS ([id number])[facility] ([facility])[address] BAND NEUTROPHILS TOTAL PER COUNTED LEUKOCYTES BY MANUAL COUNT 2 Normal [facility] Comment on above: Performed By: #### L [id number], [id number] ####Digital Watch Assembler: AMAN SANTOS ([id number])[facility] ([facility])[address] BANDS (10*3/UL) IN BLOOD-CELLAVISION 0.4 10*3/uL High <=0.0 [facility] Comment on above: Performed By: #### L [id number], [id number] ####Digital Watch Assembler: AMAN SANTOS ([id number])[facility]ENTERA [place] ([facility])[address] BASOPHILS TOTAL PER COUNTED LEUKOCYTES BY MANUAL COUNT Normal [facility] Comment on above: Performed By: #### L [id number], [id number] ####Digital Watch Assembler: AMAN SANTOS ([id number])[facility]ENTERA [place] ([facility])[address] BLASTS TOTAL PER COUNTED LEUKOCYTES BY MANUAL COUNT Normal [facility] Comment on above: Performed By: #### L [id number], [id number] ####Digital Watch Assembler: AMAN SANTOS ([id number])[facility]ENTERA [place] ([facility])[address] DACROCYTES PRESENCE IN BLOOD BY LIGHT MICROSCOPY Rare Abnormal (none) [facility] Comment on above: Performed By: #### L [id number], [id number] ####Digital Watch Assembler: AMAN SANTOS ([id number])[facility]ENTERA [place] ([facility])[address] EOSINOPHILS TOTAL PER COUNTED LEUKOCYTES BY MANUAL COUNT Normal [facility] Comment on above: Performed By: #### L [id number], [id number] ####Digital Watch Assembler: AMAN SANTOS ([id number])[facility] ([facility])[address] HYPERSEGMENTED NEUTROPHILS IN BLOOD BY LIGHT MICROSCOPY (PRESENT) Present Abnormal (none) [facility] Comment on above: Performed By: #### L [id number], [id number] ####Digital Watch Assembler: AMAN SANTOS ([id number])[facility]A [place] ([facility])[address] HYPOCHROMIA (PRESENCE) IN BLOOD BY LIGHT MICROSCOPY Slight Abnormal (none) [facility] Comment on above: Performed By: #### L [id number], [id number] ####Digital Watch Assembler: AMAN SANTOS ([id number])[facility]ENTERA [place] ([facility])[address] [place] [address] [place] LYMPHOCYTES (10*3/UL) IN BLOOD-CELLAVISION 1.0 10*3/uL Normal 1.0-4.3 [facility] Comment on above: Performed By: #### L [id number], [id number] ####Digital Watch Assembler: AMAN SANTOS ([id number])[facility]ENTERA [place] ([facility])[address] [place] [address] [place] LYMPHOCYTES TOTAL PER COUNTED LEUKOCYTES BY MANUAL COUNT 5 Normal [facility] Comment on above: Performed By: #### L [id number], [id number] ####Digital Watch Assembler: AMAN SANTOS ([id number])[facility]ENTERA [place] ([facility])[address] [place] [address] [place] LYMPHOCYTES/100 LEUKOCYTES IN BLOOD-CELLAVISION 5 % Low 15-45 [facility] Comment on above: Performed By: #### L [id number], [id number] ####Digital Watch Assembler: AMAN SANTOS ([id number])[facility]A [place] ([facility])[address] [place] [address] [place] METAMYELOCYTES TOTAL PER COUNTED LEUKOCYTES BY MANUAL COUNT Normal [facility] Comment on above: Performed By: #### L [id number], [id number] ####Digital Watch Assembler: AMAN [id number])[facility] ([facility])[address] [place] [address] [place] MONOCYTES (10*3/UL) IN BLOOD-CELLAVISION 4.9 10*3/uL High 0.0-0.9 [facility] Comment on above: Performed By: #### L [id number], [id number] ####Digital Watch Assembler: AMAN SANTOS ([phone])[facility] ([facility])[address] MONOCYTES TOTAL PER COUNTED LEUKOCYTES BY MANUAL COUNT 25 Normal [facility] Comment on above: Performed By: #### L [id number], [id number] ####Digital Watch Assembler: AMAN SANTOS ([id number])[facility]A [place] ([facility])[address] [place] [address] [place] MONOCYTES/100 LEUKOCYTES IN BLOOD-IBETH 25 % High 5-13 [facility] Comment on above: Performed By: #### L [id number], [id number] ####Digital Watch Assembler: AMAN SANTOS ([id number])[facility]A [place] ([facility])[address] [place] [address] [place] MYELOCYTES COUNTED BY MANUAL COUNT [facility] Comment on above: Performed By: #### L [id number], [id number] ####Digital Watch Assembler: AMAN SANTOS ([id number])[facility]A [place] ([facility])[address] [place] [address] [place] NEUTROPHILS BAND FORM/100 LEUKOCYTES IN BLOOD-CELLAVISI 2 % High <=0 [facility] Comment on above: Performed By: #### L [id number], [id number] ####Digital Watch Assembler: AMAN SANTOS ([id number])[facility]A [place] ([facility])[address] [place] [address] [place] NEUTROPHILS TOTAL PER COUNTED LEUKOCYTES BY MANUAL COUNT 69 Normal [facility] Comment on above: Performed By: #### L [id number], [id number] ####Digital Watch Assembler: AMAN SANTOS ([id number])[facility] ([facility])[address] OVALOCYTES PRESENCE IN BLOOD BY LIGHT MICROSCOPY Slight Abnormal (none) [facility] Comment on above: Performed By: #### L [id number], [id number] ####Digital Watch Assembler: AMAN SANTOS ([id number])[facility]A [place] ([facility])[address] PLATELETS GIANT PRESENCE IN BLOOD BY LIGHT MICROSCOPY Rare Abnormal (none) [facility] Comment on above: Performed By: #### L [id number], [id number] ####Digital Watch Assembler: AMAN SANTOS ([id number])[facility]A [place] ([facility])[address] POIKILOCYTOSIS (PRESENCE) IN BLOOD BY LIGHT MICROSCOPY Slight Abnormal (none) [facility] Comment on above: Performed By: #### L [id number], [id number] ####Digital Watch Assembler: AMAN SANTOS ([id number])[facility]A [place] ([facility])[address] POLYCHROMASIA IN BLOOD BY LIGHT MICROSCOPY Slight Abnormal (none) [facility] Comment on above: Performed By: #### L [id number], [id number] ####Digital Watch Assembler: AMAN SANTOS ([phone])[facility] [place] ([facility])[address] [place] [address] [place] PROMYELOCYTES TOTAL PER COUNTED LEUKOCYTES BY MANUAL COUNT Normal [facility] Comment on above: Performed By: #### L [id number], [id number] ####Digital Watch Assembler: AMAN SANTOS ([id number])[facility]A [place] ([facility])[address] [place] [address] [place] RBC MORPHOLOGY IN BLOOD abnormal Normal [facility] Comment on above: Performed By: #### L [id number], [id number] ####Digital Watch Assembler: AMAN SANTOS ([id number])[facility] [place] ([facility])[address] [place] [address] [place] SEGMENTED NEUTROPHILS (10*3/UL) IN BLOOD-CELLAVISION 13.6 10*3/uL High 1.8-7.5 [facility] Comment on above: Performed By: #### L [id number], [id number] ####Digital Watch Assembler: AMAN HEARDOMID ([id number])[facility] [place] ([facility])[address] SEGMENTED NEUTROPHILS/100 LEUKOCYTES-CE 68 % Normal 38-82 [facility] Comment on above: Performed By: #### L [id number], [id number] ####Digital Watch Assembler: AMAN HEARDOMID ([id number])[facility] [place] ([facility])[address] [place] [address] [place] STOMATOCYTES IN BLOOD BY LIGHT MICROSCOPY Moderate Abnormal (none) [facility] Comment on above: Performed By: #### L [id number], [id number] ####Digital Watch Assembler: AMAN SANTOS ([id number])[facility]ENTERA [facility]N ([facility])[address] UNCLASSIFIED CELLS TOTAL PER COUNTED LEUKOCYTES BY MANUAL COUNT Normal [facility] Comment on above: Performed By: #### L [id number], [id number] ####Digital Watch Assembler: AMAN HEARDOMID ([id number])[facility] [place] ([facility])[address] VARIANT LYMPHOCYTES TOTAL PER COUNTED LEUKOCYTES BY MANUAL COUNT Normal [facility] Comment on above: Performed By: #### L [id number], [id number] ####Digital Watch Assembler: AMAN SANTOS ([id number])[facility] [place] ([facility])[address] [place] [address] [place] ANISOCYTOSIS PRESENCE IN BLOOD BY LIGHT MICROSCOPY Slight Abnormal (none) [facility] Comment on above: Performed By: #### L [id number], [id number] ####Digital Watch Assembler: AMAN SANTOS ([id number])[facility]A [facility]BCROWNPOINT [facility] FACILITYN ([facility])[address] [place] [address] [place] BAND NEUTROPHILS TOTAL PER COUNTED LEUKOCYTES BY MANUAL COUNT 3 Normal [facility] Comment on above: Performed By: #### L [id number], [id number] ####Digital Watch Assembler: AMAN SANTOS ([phone])[facility] [place] ([facility])[address] [place] [address] [place] BANDS (10*3/UL) IN BLOOD-CELLAVISION 0.6 10*3/uL High <=0.0 [facility] Comment on above: Performed By: #### L [id number], [id number] ####Digital Watch Assembler: AMAN SANTOS ([id number])[facility] [place] ([facility])[address] [place] [address] [place] BASOPHILS TOTAL PER COUNTED LEUKOCYTES BY MANUAL COUNT Normal [facility] Comment on above: Performed By: #### L [id number], [id number] ####Digital Watch Assembler: AMAN SANTOS ([id number])[facility] [place] ([facility])[address] [place] [address] [place] BLASTS TOTAL PER COUNTED LEUKOCYTES BY MANUAL COUNT Normal [facility] Comment on above: Performed By: #### L [id number], [id number] ####Digital Watch Assembler: AMAN SANTOS ([id number])[facility] [place] ([facility])[address] [place] [address] [place] EOSINOPHILS (10*3/UL) IN BLOOD-CELLAVISION 0.2 10*3/uL Normal 0.0-0.5 [facility] Comment on above: Performed By: #### L [id number], [id number] ####Digital Watch Assembler: AMAN SANTOS ([id number])[facility] [place] ([facility])[address] [place] [address] [place] EOSINOPHILS TOTAL PER COUNTED LEUKOCYTES BY MANUAL COUNT 1 Normal 0-1 [facility] Comment on above: Performed By: #### L [id number], [id number] ####Digital Watch Assembler: AMAN SANTOS ([id number])[facility] [place] ([facility])[address] [place] [address] [place] EOSINOPHILS/100 LEUKOCYTES IN BLOOD-CELLAVISION 1 % Normal 0-6 [facility] Comment on above: Performed By: #### L [id number], [id number] ####Digital Watch Assembler: AMAN SANTOS ([id number])[facility] [place] ([facility])[address] [place] [address] [place] LYMPHOCYTES (10*3/UL) IN BLOOD-CELLAVISION 0.9 10*3/uL Low 1.0-4.3 [facility] Comment on above: Performed By: #### L [id number], [id number] ####Digital Watch Assembler: AMAN SANTOS ([phone])[facility] [place] ([facility])[address] [place] [address] [place] LYMPHOCYTES TOTAL PER COUNTED LEUKOCYTES BY MANUAL COUNT 4 Normal [facility] Comment on above: Performed By: #### L [id number], [id number] ####Digital Watch Assembler: AMAN SANTOS ([id number])[facility] [place] ([facility])[address] [place] [address] [place] LYMPHOCYTES/100 LEUKOCYTES IN BLOOD-CELLAVISION 4 % Low 15-45 [facility] Comment on above: Performed By: #### L [id number], [id number] ####Digital Watch Assembler: AMAN SANTOS ([id number])[facility] [place] ([facility])[address] [place] [address] [place] METAMYELOCYTES TOTAL PER COUNTED LEUKOCYTES BY MANUAL COUNT Normal [facility] Comment on above: Performed By: #### L [id number], [id number] ####Digital Watch Assembler: AMAN SANTOS ([id number])[facility] [place] ([facility])[address] [place] [address] [place] MONOCYTES (10*3/UL) IN BLOOD-CELLAVISION 2.3 10*3/uL High 0.0-0.9 [facility] Comment on above: Performed By: #### L [id number], [id number] ####Digital Watch Assembler: AMAN SANTOS ([id number])[facility] [place] ([facility])[address] [place] [address] [place] MONOCYTES TOTAL PER COUNTED LEUKOCYTES BY MANUAL COUNT 11 Normal [facility] Comment on above: Performed By: #### L [id number], [id number] ####Digital Watch Assembler: AMAN SANTOS ([id number])[facility] [place] ([facility])[address] [place] [address] [place] MONOCYTES/100 LEUKOCYTES IN BLOOD-IBETH 11 % Normal 5-13 [facility] Comment on above: Performed By: #### L [id number], [id number] ####Digital Watch Assembler: AMAN SANTOS ([id number])[facility] [place] ([facility])[address] [place] [address] [place] MYELOCYTES COUNTED BY MANUAL COUNT Normal [facility] Comment on above: Performed By: #### L [id number], [id number] ####Digital Watch Assembler: AMAN SANTOS ([id number])[facility] [place] ([facility])[address] [place] [address] [place] NEUTROPHILS BAND FORM/100 LEUKOCYTES IN BLOOD-CELLAVISI 3 % High <=0 [facility] Comment on above: Performed By: #### L [id number], [id number] ####Digital Watch Assembler: AMAN SANTOS ([id number])[facility] [place] ([facility])[address] [place] [address] [place] NEUTROPHILS TOTAL PER COUNTED LEUKOCYTES BY MANUAL COUNT 83 Normal [facility] Comment on above: Performed By: #### L [id number], [id number] ####Digital Watch Assembler: AMAN SANTOS ([id number])[facility] [place] ([facility])[address] [place] [address] [place] POIKILOCYTOSIS (PRESENCE) IN BLOOD BY LIGHT MICROSCOPY Slight Abnormal (none) [facility] Comment on above: Performed By: #### L [id number], [id number] ####Digital Watch Assembler: AMAN SANTOS ([id number])[facility] [place] ([facility])[address] [place] [address] [place] PROMYELOCYTES TOTAL PER COUNTED LEUKOCYTES BY MANUAL COUNT Normal [facility] Comment on above: Performed By: #### L [id number], [id number] ####Digital Watch Assembler: AMAN SANTOS ([phone])[facility] [place] ([facility])[address] [place] [address] [place] RBC MORPHOLOGY IN BLOOD abnormal Normal [facility] Comment on above: Performed By: #### L [id number], [id number] ####Digital Watch Assembler: AMAN SANTOS ([id number])[facility] [place] ([facility])[address] [place] [address] [place] SEGMENTED NEUTROPHILS (10*3/UL) IN BLOOD-CELLAVISION 17.9 10*3/uL High 1.8-7.5 [facility] Comment on above: Performed By: #### L [id number], [id number] ####Digital Watch Assembler: AMAN SANTOS ([id number])[facility] [place] (SB[facility]AB)[address] [place] [address] [place] SEGMENTED NEUTROPHILS/100 LEUKOCYTES-CE 81 % Normal 38-82 [facility] Comment on above: Performed By: #### L [id number], [id number] ####Digital Watch Assembler: AMAN SANTOS ([id number])[facility] [place] (SB[facility])[address] [place] [address] [place] STOMATOCYTES IN BLOOD BY LIGHT MICROSCOPY Moderate Abnormal (none) [facility] Comment on above: Performed By: #### L [id number], [id number] ####Digital Watch Assembler: AMAN SANTOS ([id number])[facility] [facility] [place] ([facility])[address] [place] [address] [place] UNCLASSIFIED CELLS TOTAL PER COUNTED LEUKOCYTES BY MANUAL COUNT Normal [facility] Comment on above: Performed By: #### L [id number], [id number] ####Digital Watch Assembler: AMAN SANTOS ([id number])[facility] [place] (SB[facility])[address] [place] [address] [place] VARIANT LYMPHOCYTES TOTAL PER COUNTED LEUKOCYTES BY MANUAL COUNT Normal [facility] Comment on above: Performed By: #### L [id number], [id number] ####Digital Watch Assembler: AMAN SANTOS ([id number])[facility] (SBHLAB)[address] [place] [address] No Panel InformationOrdered By: Farhat Perdomo on 02-15-2024 P Ackerman 0 degrees [facility] Work Phone: AK Interval 0 ms [facility] Work Phone: QRS Ackerman 39 degrees [facility] Work Phone: QRSD Interval 78 ms [facility] Work Phone: QT Interval 318 ms [facility] Work Phone: QTC Interval 449 ms [facility] Work Phone: [phone] T Wave Ackerman 211 degrees [facility] Work Phone: [facility] Work Phone: [phone] No Panel Informationon 02-14 Atrial fibrillation Ventricular [...] On 02-15-2024 18:40:19 EST by Farhat Perdomo [facility] SINUS ARRHYTHMIA Probable anterior infarct, age indeterminate Electronically Signed On 02-15-2024 13:42:34 EST by Ovidio Price Ovidio Fernandez MD - 02/15/2024 IMPRESSION: SINUS ARRHYTHMIA Probable anterior infarct, age indeterminate Electronically Signed On 02-15-2024 13:42:34 EST by Ovidio Price [facility] Atypical Lymphocytes Manual [facility] Bands Manual 2 [facility] Basophils Manual [facility] Blasts Manual [facility] Eosinophils Manual [facility] Interpretation and review of laboratory results Abnormal [facility] Lymphocytes Manual 5 [facility] Metamyelocytes Manual [facility] Monocytes Manual 25 [facility] Myelocytes Manual [facility] Neutrophils Manual 69 [facility] Promyelocytes Manual [facility] Unclassified Cells, Manual [facility] Atypical Lymphocytes Manual [facility] Bands Manual 3 [facility] Basophils Manual [facility] Blasts Manual [facility] Eosinophils Manual 1 0 - 1 [facility] Interpretation and review of laboratory results Abnormal [facility] Lymphocytes Manual 4 [facility] Metamyelocytes Manual [facility] Monocytes Manual 11 [facility] Myelocytes Manual [facility] Neutrophils Manual 83 [facility] Promyelocytes Manual [facility] Unclassified Cells, Manual [facility] Interpretation and review of laboratory results Normal [facility] No Panel InformationOrdered By: Ovidio Price on 02-15-2024 P Ackerman 0 degrees [facility] Work Phone: AK Interval 0 ms [facility] Work Phone: QRS Ackerman 79 degrees [facility] Work Phone: QRSD Interval 83 ms [facility] Work Phone: QT Interval 320 ms [facility] Work Phone: QTC Interval 392 ms [facility] Work Phone: T Wave Ackerman -61 degrees [facility] Work Phone: [facility] Work Phone: Progress Noteon 02-15-2024 Progress Note Normal [facility] Progress Note Normal [facility] Progress Note PHYSICAL THERAPY [facility] Name/MRN: Alta Baker ([id number]) Date: 02/15/2024 PT orders received. Chart reviewed. CT lumbar spine exam ended but not resulted. Will await results prior to initiating therapy parish. Sherin Molina, PT Normal [facility] Urinalysis complete panel (U )Ordered By: Nano Contreras on 02-15-2024 Bacteria LM.HPF (Urine sed) [#/Area] Few Abnormal Negative /HPF [facility] Bilirubin Ql (U) Negative Negative mg/dL [facility] Clarity (U) Turbid Abnormal Clear [facility] Color (U) Yellow Lt. Yellow [facility] Epithelial cells.squamous LM.HPF (Urine sed) [#/Area] 11-25 Abnormal [facility] Glucose Ql (U) Normal Normal (<70) mg/dL [facility] Hemoglobin Ql (U) 0.1 mg/dL Abnormal Negative [facility] Hyaline casts Auto (Urine sed) [#/Area] 0-2 Abnormal Negative /LPF [facility] Interpretation and review of laboratory results Abnormal [facility] Ketones (U) [Mass/Vol] Negative Negat ute mg/dL [facility] Leukocyte esterase Test strip Ql (U) Negative Negative Ghada/uL [facility] Mucus LM.HPF (Urine sed) [#/Area] Few Negative /LPF [facility] Nitrite Ql (U) Negative Negative [facility] pH (U) 5.5 [pH] 5.0 - 8.0 pH [facility] Protein (U) [Mass/Vol] 100 mg/dL Abnormal Negative [facility] RBC LM.HPF (Urine sed) [#/Area] 6-10 Abnormal [facility] Specific gravity (U) [Rel density] 1.019 1.005 - 1.030 [facility] Urobilinogen (U) [Mass/Vol] 3 mg/dL Abnormal Normal (0-1) [facility] WBC LM.HPF (Urine sed) [#/Area] 3-5 [facility] Vital signsOrdered By: Farhat Perdomo on 02-15-2024 Heart rate 120 /min bpm [facility] Work Phone: Vital signsOrdered By: Ovidio Price on 02-15-2024 Heart rate 90 /min bpm [facility] Work Phone: XR Chest 2 Viewson 4 Cardiomegaly. Atelec tasis at the right lung base. Report Dictated on Electronically Signed By: Damien Alexandra MD Electronically Signed Date/Time: 02/15/2024 11:09 AM [facility] Patient Name: ALTA MOYA : [...] pleural effusion. The osseous structures are unremarkable. [facility] Damien Alexandra MD - 02/15/2024 Patient [...] MD Electronically Signed Date/Time: 02/15/2024 11:09 AM [employer] OGK-5 XR Chest 2 ViewsOrdered By: Damien Alexandra on 02-15-2024 [place] Work Phone: XR Chest Single viewon 02-14 1. No acute cardiopulmonary process. 2. Cardiomegaly. Report Dictated on Electronically Signed By: Brayden Hernandez MD Electronically Signed Date/Time: 02/15/2024 1:50 AM [facility] Patient Name: ALTA MOYA : 1950 [...] changes of the thoracic spine are noted. [facility] Brayden Hernandez MD - 02/15/2024 Patient Name: [...] Electronically Signed Date/Time: 02/15/2024 1:50 AM EST [facility] Radiology Study observation (narrative) [facility] XR Chest Single viewOrdered By: Brayden Hernandez on 02-15-2024 [facility] Work Phone: 29on 02-14-2024 29 Addended by: NESTOR MENDOZA on: 02/14/2024 01:12 PM Modules accepted: Orders Normal [facility] 36on 02-14-2024 36 Normal [facility] 36 Triage message revie wed with clinical staff. Patient appointment confirmed. PCP will assess at appointment visit. Normal [facility] CBC W Auto Differential pane l (Bld)Ordered By: Ashley Llamas on 02-14-2024 Basophils (Bld) [#/Vol] 0 10*3/uL 0.0 - 0.2 10*3/uL [facility] Basophils/100 WBC (Bld) 0.1 % 0.0 - 2.0 % [facility] Eosinophils (Bld) [#/Vol] 0 10*3/uL 0.0 - 0.5 10*3/uL [facility] Eosinophils/100 WBC (Bld) 0 % 0.0 - 6.0 % [facility] Erythrocyte distribution width (RBC) [Ratio] 16.5 % High 11.5 - 15.0 % [facility] Hematocrit (Bld) [Volume fraction] 37.6 % 35.0 - 47.0 % [facility] Hemoglobin (Bld) [Mass/Vol] 11.8 g/dL 11.7 - 16.0 g/dL [facility] Immature granulocytes (Bld) [#/Vol] 0.4 10*3/uL High NINF - 0.1 10*3/uL [facility] Immature granulocytes/100 WBC (Bld) 1.5 % 0.0 - 2.0 % [facility] Interpretation and review of laboratory results Abnormal [facility] Lymphocytes (Bld) [#/Vol] 1.1 10*3/uL 1.0 - 4.3 10*3/uL [facility] Lymphocytes/100 WBC (Bld) 4.2 % Low 15.0 - 45.0 % [facility] MCH (RBC) [Entitic mass] 28.6 pg 26.0 - 34.0 pg [facility] MCHC (RBC) [Mass/Vol] 31.4 % 30.5 - 36.0 % [facility] MCV (RBC) [Entitic vol] 91 fL 77.0 - 99.0 fL [facility] Monocytes (Bld) [#/Vol] 6.1 10*3/uL High 0.0 - 0.9 10*3/uL [facility] Monocytes/100 WBC (Bld) 24.1 % High 5.0 - 13.0 % [facility] Neutrophils (Bld) [#/Vol] 17.7 10*3/uL High 1.8 - 7.5 10*3/uL [facility] Neutrophils/100 WBC (Bld) 70.1 % 38.0 - 82.0 % [facility] Nucleated RBC/100 WBC (Bld) [Ratio] 0 % [facility] Platelet mean volume (Bld) [Entitic vol] 12.7 fL 9.0 - 12.7 fL [facility] Comment on above: MPV is a calculated measurement using platelet volume ratio Platelets (Bld) [#/Vol] 114 10*3/uL Low 140 - 440 10*3/uL [facility] RBC (Bld) [#/Vol] 4.13 10*6/uL 3.80 - 5.2 0 10*6/uL [facility] WBC (Bld) [#/Vol] 25.3 10*3/uL High 3.6 - 10.7 10*3/uL [facility] CBC WITH AUTO DIFFERENTIALon 02-14-2024 Basophils (Bld) [#/Vol] 0.0 10*3/uL Normal 0.0-0.2 [facility] Comment on above: Performed By: #### Manpreet [id number], [id number] ####Digital Watch Assembler: VIVIAN PANTOJA ([id number])[facility] [place] (SWRLAB)[address] [place] [address] [place] Basophils/100 WBC (Bld) 0.1 % Normal 0.0-2.0 [facility] Comment on above: Performed By: #### Manpreet [id number], [id number] ####Digital Watch Assembler: VIVIAN PANTOJA ([id number])[facility] [place] [place] (SWRLAB)[address] [place] [address] [place] Eosinophils (Bld) [#/Vol] 0.0 10*3/uL Normal 0.0-0.5 [facility] Comment on above: Performed By: #### Manpreet [id number], [id number] ####Digital Watch Assembler: VIVIAN PANTOJA ([id number])[facility] [place] [place] (SWRLAB)[address] [place] [address] [place] Eosinophils/100 WBC (Bld) 0.0 % Normal 0.0-6.0 [facility] Comment on above: Performed By: #### L [id number], [id number] ####Digital Watch Assembler: VIVIAN PANTOJA ([id number])[facility] [place] (SWRLAB)[address] [place] [address] Erythrocyte distribution width (RBC) [Ratio] 16.5 % High 11.5-15.0 [facility] Comment on above: Performed By: #### Manpreet [id number], [id number] ####Digital Watch Assembler: VIVIAN PANTOJA ([id number])[facility] CENTERBessy [place] (SWRLAB)[address] [place] [address] Hematocrit (Bld) [Volume fraction] 37.6 % Normal 35.0-47.0 [facility] Comment on above: Performed By: #### Manpreet AB322, [id number] ####Digital Watch Assembler: VIVIAN PANTOJA ([id number])[facility]ENTER[facility]ess[facility] [place] (SWRLAB)[address] [place] [address] Hemoglobin (Bld) [Mass/Vol] 11.8 g/dL Normal 11.7-16.0 [facility] Comment on above: Performed By: #### Manpreet AB322, [id number] ####Digital Watch Assembler: VIVIAN PANTOJA ([id number])[facility]ENTER[facility]ess[facility] [place] (SWRLAB)[address] [place] [address] IMMATURE GRANS % 1.5 % Normal 0.0-2.0 [facility] Comment on above: Performed By: #### Manpreet AB322, [id number] ####Digital Watch Assembler: VIVIAN PANTOJA ([id number])[facility]ENTER[facility]ess[facility] [place] (SWRLAB)[address] [place] [address] IMMATURE GRANS ABSOLUTE 0.4 10*3/uL High <0.1 [facility] Comment on above: Performed By: #### Manpreet AB322, [id number] ####Digital Watch Assembler: VIVIAN PANTOJA ([id number])[facility]ENTER[facility] [place] (SWRLAB)[address] [place] [address] Lymphocytes (Bld) [#/Vol] 1.1 10*3/uL Normal 1.0-4.3 [facility] Comment on above: Performed By: #### L [id number], [id number] ####Digital Watch Assembler: VIVIAN PANTOJA ([id number])[facility]ENTER[facility] [place] (SWRLAB)[address] [place] [address] [place] Lymphocytes/100 WBC (Bld) 4.2 % Low 15.0-45.0 [facility] Comment on above: Performed By: #### L [id number], [id number] ####Digital Watch Assembler: VIVIAN PATNOJA ([id number])[facility]ENTER[facility] [place] (SWRLAB)[address] [place] [address] MCH (RBC) [Entitic mass] 28.6 pg Normal 26.0-34.0 [facility] Comment on above: Performed By: #### L AB322, [id number] ####Digital Watch Assembler: VIVIAN PANTOJA ([id number])[facility]ENTER[facility] [place] (SWRLAB)[address] [place] [address] MCHC 31.4 % Normal 30.5-36.0 [facility] Comment on above: Performed By: #### Manpreet AB322, [id number] ####Digital Watch Assembler: VIVIAN PANTOJA ([id number])[facility]ENTERB[facility] [place] (SWRLAB)[address] [place] [address] MCV (RBC) [Entitic vol] 91.0 fL Normal 77.0-99.0 [facility] Comment on above: Performed By: #### Manpreet AB322, [id number] ####Digital Watch Assembler: VIVIAN PANTOJA ([id number])[facility]ENTER[facility] [place] (SWRLAB)[address] [place] [address] [place] Monocytes (Bld) [#/Vol] 6.1 10*3/uL High 0.0-0.9 [facility] Comment on above: Performed By: #### L [id number], [id number] ####Digital Watch Assembler: VIVIAN PANTOJA ([id number])[facility]ENTERB[facility] [place] (SWRLAB)[address] [place] [address] [place] Monocytes/100 WBC (Bld) 24.1 % High 5.0-13.0 [facility] Comment on above: Performed By: #### Manpreet AB322, [id number] ####Digital Watch Assembler: VIVIAN PANTOJA ([id number])[facility]ENTERB[facility] [place] (SWRLAB)[address] [place] [address] NEUTROPHILS ABSOLUTE 17.7 10*3/uL High 1.8-7.5 [facility] Comment on above: Performed By: #### Manpreet AB322, [id number] ####Digital Watch Assembler: VIVIAN PANTOJA ([id number])[facility]ENTER[facility] [place] (SWRLAB)[address] [place] [address] Neutrophils/100 WBC (Bld) 70.1 % Normal 38.0-82.0 [facility] Comment on above: Performed By: #### Manpreet [id number], [id number] ####Digital Watch Assembler: VIVIAN PANTOJA ([id number])[facility]ENTERB[facility] [place] (SWRLAB)[address] [place] [address] NRBC 0.0 /100 WBCs Normal 0.0-2.0 [facility] Comment on above: Performed By: #### Manpreet AB322, [id number] ####Digital Watch Assembler: VIVIAN PANTOJA ([id number])[facility]ENTERB[facility] [place] (SWRLAB)[address] [place] [address] Platelet mean volume (Bld) [Entitic vol] 12.7 fL Normal 9.0-12.7 [facility] Comment on above: Result Comment: MPV is a calculated measurement using platelet volume ratio Performed By: #### Manpreet AB322, [id number] ####Digital Watch Assembler: VIVIAN PANTOJA ([id number])[facility]ENTERB[facility] [place] (SWRLAB)[address] [place] [address] Platelets (Bld) [#/Vol] 114 10*3/uL Low 140-440 [facility] Comment on above: Performed By: #### Manpreet AB322, [id number] ####Digital Watch Assembler: VIVIAN PANTOJA ([id number])[facility]ENTERB[facility] [place] (SWRLAB)[address] RBC (Bld) [#/Vol] 4.13 10*6/uL Normal 3.80-5.20 [facility] Comment on above: Performed By: #### Manpreet AB322, [id number] ####Digital Watch Assembler: VIVIAN PANTOJA ([id number])[facility]ENTERB[facility] [place] (SWRLAB)[address] WBC (Bld) [#/Vol] 25.3 10*3/uL High 3.6-10.7 [facility] Comment on above: Performed By: #### Manpreet AB322, [id number] ####Digital Watch Assembler: VIVIAN PANTOJA ([id number])[facility]ENTERB[facility] [place] (SWRLAB)[address] COMPREHENSIVE METABOLIC PANE Amaury 02-14-2024 Albumin [Mass/Vol] 4.1 g/dL Normal 3.5-5.0 [facility] Comment on above: Performed By: #### Manpreet MCCALL99, [id number] ####Digital Watch Assembler: VIVIAN PANTOJA ([id number])[facility]ENTERB[facility] [place] (SWRLAB)[address] ALP [Catalytic activity/Vol] 80 U/L Normal 38-126 [facility] Comment on above: Performed By: #### L AB99, LAB17 ####Digital Watch Assembler: VIVIAN PANTOJA ([id number])[facility]ENTER[facility] [place] (SWRLAB)[address] ALT [Catalytic activity/Vol] 20 U/L Normal 0-34 [facility] Comment on above: Performed By: #### L AB99, LAB17 ####Digital Watch Assembler: VIVIAN PANTOJA ([id number])[facility]ENTERB[facility] [place] (SWRLAB)[address] Anion gap [Moles/Vol] 8 mmol/L Normal 3-13 [facility] Comment on above: Performed By: #### L ASHWINI, LAB17 ####Digital Watch Assembler: VIVIAN PANTOJA ([id number])[facility]ENTER[facility] [place] (SWRLAB)[address] AST [Catalytic activity/Vol] 20 U/L Normal 15-46 [facility] Comment on above: Performed By: #### L ASHWINI, LAB17 ####Digital Watch Assembler: VIVIAN PANTOJA ([id number])[facility]ENTERBessy MARTINEZRUDDY RITTMAN (SWRLAB)[address] Bilirubin [Mass/Vol] 2.3 mg/dL High 0.2-1.3 [facility] Comment on above: Performed By: #### Manpreet MARADIAGA, LAB17 ####Digital Watch Assembler: VIVIAN PANTOJA ([id number])[facility]ENTERBessy MARTINEZRUDDY [place]ITTMAN (SWRLAB)[address] Calcium [Mass/Vol] 9.6 mg/dL Normal 8.4-10.4 [facility] Comment on above: Performed By: #### Manpreet MARADIAGA, LAB17 ####Digital Watch Assembler: VIVIAN PANTOJA ([id number])[facility]ENTERBessy MARTINEZRUDDY R[place]TMAN (SWRLAB)[address] [place] [address] [place] Chloride [Moles/Vol] 99 mmol/L Normal 98-107 [facility] Comment on above: Performed By: #### L AB99, LAB17 ####Digital Watch Assembler: VIVIAN PANTOJA ([id number])[facility]ENTERB[facility]y MARTINEZRUDDY [place]TMAN (SWRLAB)[address] [place] [address] [place] CO2 [Moles/Vol] 33 mmol/L High 22-30 [facility] Comment on above: Performed By: #### L AB99, LAB17 ####Digital Watch Assembler: VIVIAN PANTOJA ([id number])[facility]ENTERB[facility]y MARTINEZRUDDY [place]TMAN (SWRLAB)[address] [place] [address] [place] Creatinine [Mass/Vol] 0.56 mg/dL Normal 0.52-1.04 [facility] Comment on above: Performed By: #### Manpreet MARADIAGA, LAB17 ####Digital Watch Assembler: VIVIAN PANTOJA ([id number])[facility]ENTERBessy SIDDIQUITMAN (SWRLAB)[address] [place] [address] GLOMERULAR FILTRATION RATE ML/MIN/1.73 SQ M.PREDICTED >90.0 Normal >60.0 [facility] Comment on above: Result Comment: Calc ulation based on the Chronic Kidney Disease Epidemiology Collaboration (CKD-EPI) equation refit without adjustment for race Performed By: #### Manpreet MARADIAGA, LAB17 ####Digital Watch Assembler: VIVIAN PANTOJA ([id number])[facility]ENTER[facility] SIDDIQUITMAN (SWRLAB)[address] [place] [address] Glucose [Mass/Vol] 129 mg/dL High 70-100 [facility] Comment on above: Performed By: #### Manpreet MARADIAGA, LAB17 ####Digital Watch Assembler: VIVIAN PANTOJA ([id number])[facility]ENTERB[facility] [place] (SWRLAB)[address] [place] [address] [place] Potassium [Moles/Vol] 4.0 mmol/L Normal 3.5-5.1 [facility] Comment on above: Performed By: #### Manpreet MARADIAGA, LAB17 ####Digital Watch Assembler: VIVIAN PANTOJA ([id number])[facility]ENTERB[facility] [place] [facility] (SWRLAB)[address] [place] [address] Protein [Mass/Vol] 6.7 g/dL Normal 6.3-8.2 [facility] Comment on above: Performed By: #### L ASHWINI, LAB17 ####Digital Watch Assembler: VIVIAN PANTOJA ([id number])[facility]ENTERB[facility] [place] [facility] (SWRLAB)[address] [place] [address] [place] Sodium [Moles/Vol] 141 mmol/L Normal 135-145 [facility] Comment on above: Performed By: #### L AB99, LAB17 ####Digital Watch Assembler: VIVIAN PANTOJA ([id number])[facility] SYSTEM[facility]UD[facility] (SWRLAB)[address] Urea nitrogen [Mass/Vol] 16 mg/dL Normal 7-17 [facility] Comment on above: Performed By: #### L AB99, LAB17 ####Digital Watch Assembler: VIVIAN PANTOJA ([id number])[facility] (SWRLAB)[address] Lumbar spine WO contrasto n 02-14-2024 Radiology Study observation (narrative) [facility] Comprehensive metabolic 1998 panelon 02-14-2024 Albumin [Mass/Vol] 4.1 g/dL 3.5 - 5.0 g/dL [facility] ALP [Catalytic activity/Vol] 80 U/L 38 - 126 U/L [facility] ALT [Catalytic activity/Vol] 20 U/L 0 - 34 U/L [facility] Anion gap [Moles/Vol] 8 mmol/L 3 - 13 mmol/L [facility] AST [Catalytic activity/Vol] 20 U/L 15 - 46 U/L [facility] Bilirubin [Mass/Vol] 2.3 mg/dL High 0.2 - 1 .3 mg/dL [facility] Calcium [Mass/Vol] 9.6 mg/dL 8.4 - 10. 4 mg/dL [facility] Chloride [Moles/Vol] 99 mmol/L 98 - 10 7 mmol/L [facility] CO2 [Moles/Vol] 33 mmol/L High 22 - 30 mmol/L [facility] Creatinine [Mass/Vol] 0.56 mg/dL 0.52 - 1.04 mg/dL [facility] GFR/1.73 sq M.predicted (S/P/Bld) [Vol rate/Area] - PINF [facility] Comment on above: Calculation based on the Chronic Kidney Disease Epidemiology Collaboration (CKD-EPI) equation refit without adjustment for race Glucose [Mass/Vol] 129 mg/dL High 70 - 100 mg/dL [facility] Interpretation and review of laboratory results Abnormal [facility] Potassium [Moles/Vol] 4 mmol/L 3.5 - 5.1 mmol/L [facility] Protein [Mass/Vol] 6.7 g/dL 6.3 - 8.2 g/dL [facility] Sodium [Moles/Vol] 141 mmol/L 135 - 145 mmol/L [facility] Urea nitrogen [Mass/Vol] 16 mg/dL 7 - 17 mg/dL [facility] ED Provider Noteon ED Provider Note Normal [facility] ESR (Bld) [Velocity]on 02-13 Interpretation and review of laboratory results Normal [facility] HIGH SENSITIVITY CRPon 02-13 CRP, HIGH SENSITIVITY 43.6 mg/L High <=3.0 [facility] Comment on above: Result Comment: LEOBARDO R COMMENTS:Classification for Cardiovascular Disease RiskLow <1.00 mg/LAverage 1.00-3.00 mg/LHigh >3.00-10.00 mg/LIndeterminant* >10.00 mg/L*May be indication of another source of inflammation or infection. Performed By: #### L AB150 ####Digital Watch Assembler: AMAN SANTOS ([id number])[facility] (SBHLAB)[address] [place] [address] LIPASEon 02-14-2024 Lipase [Catalytic activity/Vol] 61 U/L Normal 23-300 [facility] Comment on above: Performed By: #### L AB99, LAB17 ####Digital Watch Assembler: VIVIAN PANTOJA ([id number])[facility] (SWRLAB)[address] [place] [address] Laboratory - Chemistry and C hemistry - challengeon 02-14-2024 Lipase [Catalytic activity/Vol] 61 U/L 23 - 300 U/L [facility] Laboratory - Hematology and Cell countson 02-14-2024 ESR (Bld) [Velocity] 1 mm/h [facility] Lipase [Catalytic activity/V ol]on 02-14-2024 Interpretation and review of laboratory results Normal [facility] No Panel Informationon 02-13 [facility] Progress Noteon 02-14-2024 Progress Note Normal [facility] [facility] SEDIMENTATION RATE, AUTOMATE Don 02-14-2024 SEDIMENTATION RATE, ERYTHROCYTE 1 mm/hr Normal 0-20 [facility] Comment on above: Performed By: #### L [id number], [id number] ####Digital Watch Assembler: VIVIAN PANTOJA ([phone])[facility] RUDDY CHENCARMEN ([facility])[address] [place] [address] XR Chest 2 Viewson 4 Radiology Study observation (narrative) [facility] TxVia 36on 02-11-2024 36 Normal [facility] CBC W Auto Differential pane l (Bld)on 02-11-2024 Erythrocyte distribution width (RBC) [Ratio] 16.3 % High 11.5 - 15.0 % [facility] Hematocrit (Bld) [Volume fraction] 36.4 % 35.0 - 47.0 % [facility] Hemoglobin (Bld) [Mass/Vol] 11.4 g/dL Low 11.7 - 16.0 g/dL [facility] IPF 14 [facility] MCH (RBC) [Entitic mass] 28.2 pg 26.0 - 34.0 pg [facility] MCHC (RBC) [Mass/Vol] 31.3 % 30.5 - 36.0 % [facility] MCV (RBC) [Entitic vol] 90.1 fL 77.0 - 99.0 fL [facility] Nucleated RBC/100 WBC (Bld) [Ratio] 0 % [facility] Platelet mean volume (Bld) [Entitic vol] 12.9 fL High 9.0 - 12.7 fL [facility] Platelets (Bld) [#/Vol] 92 10*3/uL Low 140 - 440 10*3/uL [facility] RBC (Bld) [#/Vol] 4.04 10*6/uL 3.80 - 5.2 0 10*6/uL [facility] WBC (Bld) [#/Vol] 18.5 10*3/uL High 3.6 - 10.7 10*3/uL [facility] CBC WITH AUTO DIFFERENTIALon 02-11-2024 Erythrocyte distribution width (RBC) [Ratio] 16.3 % High 11.5-15.0 [facility] Comment on above: Performed By: #### L [id number], [id number] ####Digital Watch Assembler: VIVIAN PANTOJA ([phone])[facility] RUDDY CHENCARMEN (RLAB)[address] [place] [address] Hematocrit (Bld) [Volume fraction] 36.4 % Normal 35.0-47.0 [facility] Comment on above: Performed By: #### L [id number], [id number] ####Digital Watch Assembler: VIVIAN PANTOJA ([phone])[facility]ENTERBess[facility] FOX RIT[facility]AN (SWRLAB)[address] [place] [address] Hemoglobin (Bld) [Mass/Vol] 11.4 g/dL Low 11.7-16.0 [facility] Comment on above: Performed By: #### L [id number], [id number] ####Digital Watch Assembler: VIVIAN PANTOJA ([phone])[facility]ENTERBessy [facility] R[facility]AN (SWRLAB)[address] [place] [address] IPF 14 Normal [facility] Comment on above: Performed By: #### Manpreet [id number], [id number] ####Digital Watch Assembler: VIVIAN PANTOJA ([id number])[facility]ENTERBessy [facility] R[facility] (SWRLAB)[address] [place] [address] MCH (RBC) [Entitic mass] 28.2 pg Normal 26.0-34.0 [facility] Comment on above: Performed By: #### L [id number], [id number] ####Digital Watch Assembler: VIVIAN PANTOJA ([id number])[facility]ENTERBessy [facility] R[facility] (SWRLAB)[address] [place] [address] MCHC 31.3 % Normal 30.5-36.0 [facility] Comment on above: Performed By: #### L [id number], [id number] ####Digital Watch Assembler: VIVIAN PANTOJA ([id number])[facility]ENTERBessy [facility] (SWRLAB)[address] [place] [address] MCV (RBC) [Entitic vol] 90.1 fL Normal 77.0-99.0 [facility] Comment on above: Performed By: #### L [id number], [id number] ####Digital Watch Assembler: VIVIAN PANTOJA ([id number])[facility] (SWRLAB)[address] [place] [address] [place] NRBC 0.0 /100 WBCs Normal 0.0-2.0 [facility] Comment on above: Performed By: #### Manpreet [id number], [id number] ####Digital Watch Assembler: VIVIAN PANTOJA ([phone])[facility] CENTERBessy [facility] R[facility] (SWRLAB)[address] Platelet mean volume (Bld) [Entitic vol] 12.9 fL High 9.0-12.7 [facility] Comment on above: Performed By: #### Manpreet SAINI, [id number] ####Digital Watch Assembler: VIVIAN PANTOJA ([phone])[facility]ENTERBessy [facility] R[facility] (SWRLAB)[address] Platelets (Bld) [#/Vol] 92 10*3/uL Low 140-440 [facility] Comment on above: Performed By: #### Manpreet [id number], [id number] ####Digital Watch Assembler: VIVIAN PANTOJA ([phone])[facility]ENTERBessy [facility] R[facility] (SWRLAB)[address] [place] [address] RBC (Bld) [#/Vol] 4.04 10*6/uL Normal 3.80-5.20 [facility] Comment on above: Performed By: #### Manpreet [id number], [id number] ####Digital Watch Assembler: VIVIAN PANTOJA ([phone])[facility]ENTERBessy FXO RITTMAN (SWRLAB)[address] [place] [address] [place] WBC (Bld) [#/Vol] 18.5 10*3/uL High 3.6-10.7 [facility] Comment on above: Performed By: #### L [id number], [id number] ####Digital Watch Assembler: VIVIAN PANTOJA ([phone])[facility]ENTERBessy [facility] (SWRLAB)[address] COMPLETE URINALYSISon 2023 BACTERIA (#/HPF) IN URINE Few Abnormal Negative [facility] Comment on above: Performed By: #### L [id number] ####Digital Watch Assembler: VIVIAN PANTOJA ([phone])[facility]ENTERA RUDDY RITTMAN (SWRLAB)[address] [place] [address] BILIRUBIN, TOTAL PRESENCE IN URINE Negative Normal Negative [facility] Comment on above: Performed By: #### L [id number] ####Digital Watch Assembler: VIVIAN PANTOJA ([phone])[facility]ENTERA RUDYD RITTMAN (SWRLAB)[address] [place] [address] Clarity (U) Clear Normal Clear [facility] Comment on above: Performed By: #### L [id number] ####Digital Watch Assembler: VIVIAN PANTOJA ([phone])[facility]ENTERA RUDDY RITTMAN (SWRLAB)[address] [place] [address] Color (U) Yellow Normal Lt. Yellow [facility] Comment on above: Performed By: #### L [id number] ####Digital Watch Assembler: VIVIAN PANTOJA ([phone])[facility]ENTERA RUDDY RITTMAN (SWRLAB)[address] [place] [address] [place] GLUCOSE (MG/DL) IN URINE Normal Normal Normal (<70) [facility] Comment on above: Performed By: #### L [id number] ####Digital Watch Assembler: VIVIAN PANTOJA ([phone])[facility]ENTERA RUDDY RITTMAN (SWRLAB)[address] [place] [address] [place] HEMOGLOBIN PRESENCE IN URINE 0.03 mg/dL Abnormal Negative [facility] Comment on above: Performed By: #### L [id number] ####Digital Watch Assembler: VIVIAN PANTOJA ([phone])[facility]ENTERA RUDDY RITTMAN (SWRLAB)[address] [place] [address] [place] HYALINE CASTS (#/LPF) IN URINE SEDIMENT BY MICROSCOPY 0-2 Abnormal Negative [facility] Comment on above: Performed By: #### L [id number] ####Digital Watch Assembler: VIVIAN PANTOJA ([phone])[facility]ENTERBessy FOX R[place] (SWRLAB)[address] Ketones Ql (U) Negative Normal Negative [facility] Comment on above: Performed By: #### L [id number] ####Digital Watch Assembler: VIVIAN PANTOJA ([id number])[facility]ENTERBessy FOX R[place]AN (SWRLAB)[address] LEUKOCYTE ESTERASE PRESENCE IN URINE BY TEST STRIP Negative Normal Negative [facility] Comment on above: Performed By: #### L [id number] ####Digital Watch Assembler: VIVIAN PANTOJA ([phone])[facility]ENTERBessy MARTINEZRUDDY RITTMAN (SWRLAB)[address] [place] [address] NITRITE PRESENCE IN URINE Negative Normal Negative [facility] Comment on above: Performed By: #### L [id number] ####Digital Watch Assembler: VIVIAN PANTOJA ([phone])[facility]ENTERA RUDDY RITTMAN (SWRLAB)[address] [place] [address] pH (U) 6.0 [pH] Normal 5.0-8.0 [facility] Comment on above: Performed By: #### L [id number] ####Digital Watch Assembler: VIVIAN PANTOJA ([phone])[facility] CENTERBessy MARTINEZRUDDY RITTMAN (SWRLAB)[address] [place] [address] Protein (U) [Mass/Vol] 300 mg/dL Abnormal Negative [facility] Comment on above: Performed By: #### L [id number] ####Digital Watch Assembler: VIVIAN PANTOJA ([id number])[facility]ENTERA RUDDY RITTMAN (SWRLAB)[address] [place] [address] [place] RBC (#/HPF) IN URINE SEDIMENT 0-2 Normal 0-2 [facility] Comment on above: Performed By: #### L [id number] ####Digital Watch Assembler: VIVIAN PANTOJA ([phone])[facility]ENTERBessy MARTINEZRUDDY RITTMAN (SWRLAB)[address] [place] [address] Specific gravity (U) [Rel density] 1.032 High 1.005-1.030 [facility] Comment on above: Performed By: #### L [id number] ####Digital Watch Assembler: VIVIAN PANTOJA ([phone])[facility]ENTERBessy FOX RITTMAN (SWRLAB)[address] [place] [address] Specimen volume (U) 12 mL Normal [facility] Comment on above: Performed By: #### L [id number] ####Digital Watch Assembler: VIVIAN PANTOJA ([id number])[facility]ENTERBessy FOX RITTMAN (SWRLAB)[address] [place] [address] SQUAMOUS EPITHELIAL CELLS (#/HPF) IN URINE SEDIMENT 3-5 Normal 3-5 [facility] Comment on above: Performed By: #### L [id number] ####Digital Watch Assembler: VIVIAN PANTOJA ([phone])[facility]ENTERBessy FOX RITTMAN (SWRLAB)[address] [place] [address] UROBILINOGEN (MG/DL) IN URINE 4 mg/dL Abnormal Normal (0-1) [facility] Comment on above: Performed By: #### L [id number] ####Digital Watch Assembler: VIVIAN PANTOJA ([phone])[facility]ENTERBessy FOX RITTMAN (SWRLAB)[address] [place] [address] WBC (LEUKOCYTE) (#/HPF) IN URINE SEDIMENT 3-5 Normal 0-5 [facility] Comment on above: Performed By: #### L [id number] ####Digital Watch Assembler: VIVIAN PANTOJA ([phone])[facility]ENTERBessy FOX RITTMAN (SWRLAB)[address] [place] [address] COMPREHENSIVE METABOLIC PANE Amaury 02-11-2024 Albumin [Mass/Vol] 4.2 g/dL Normal 3.5-5.0 [facility] Comment on above: Performed By: #### L AB17 ####Digital Watch Assembler: VIVIAN PANTOJA ([phone])[facility]ENTERBessy FOX RITTMAN (SWRLAB)[address] [place] [address] [place] ALP [Catalytic activity/Vol] 84 U/L Normal 38-126 [facility] Comment on above: Performed By: #### L AB17 ####Digital Watch Assembler: VIVIAN PANTOJA ([phone])[facility]ENTERBessy FOX RITTMAN (SWRLAB)[address] [place] [address] [place] ALT [Catalytic activity/Vol] 20 U/L Normal 0-34 [facility] Comment on above: Performed By: #### L AB17 ####Digital Watch Assembler: VIVIAN PANTOJA ([phone])[facility]ENTERBessy FOX RITTMAN (SWRLAB)[address] Anion gap [Moles/Vol] 7 mmol/L Normal 3-13 [facility] Comment on above: Performed By: #### L AB17 ####Digital Watch Assembler: VIVIAN PANTOJA ([id number])[facility]ENTERBessy FOX RITTMAN (SWRLAB)[address] [place] [address] [place] AST [Catalytic activity/Vol] 19 U/L Normal 15-46 [facility] Comment on above: Performed By: #### L AB17 ####Digital Watch Assembler: VIVIAN PANTOJA ([phone])[facility]ENTERBessy [facility] R[facility] (SWRLAB)[address] [place] [address] [place] Bilirubin [Mass/Vol] 1.9 mg/dL High 0.2-1.3 [facility] Comment on above: Performed By: #### L AB17 ####Digital Watch Assembler: VIVIAN PANTOJA ([phone])[facility]ENTERBessy FOX R[facility] (SWRLAB)[address] [place] [address] [place] Calcium [Mass/Vol] 9.8 mg/dL Normal 8.4-10.4 [facility] Comment on above: Performed By: #### L AB17 ####Digital Watch Assembler: VIVIAN PANTOJA ([id number])[facility]ENTERBessy FOX R[facility]AN (SWRLAB)[address] [place] [address] [place] Chloride [Moles/Vol] 101 mmol/L Normal 98-107 [facility] Comment on above: Performed By: #### L AB17 ####Digital Watch Assembler: VIVIAN PANTOJA ([id number])[facility]ENTERBessy [facility] R[facility] (SWRLAB)[address] CO2 [Moles/Vol] 30 mmol/L Normal 22-30 [facility] Comment on above: Performed By: #### L AB17 ####Digital Watch Assembler: VIVIAN PANTOJA ([phone])[facility]ENTERBessy [facility] R[facility] (SWRLAB)[address] [place] [address] Creatinine [Mass/Vol] 0.76 mg/dL Normal 0.52-1.04 [facility] Comment on above: Performed By: #### L AB17 ####Digital Watch Assembler: VIVIAN PANTOJA ([id number])[facility]ENTERBessy FOX RITTMAN (SWRLAB)[address] [place] [address] [place] GLOMERULAR FILTRATION RATE ML/MIN/1.73 SQ M.PREDICTED 83.4 mL/min/1.73m*2 Normal >60.0 [facility] Comment on above: Result Comment: Calc ulation based on the Chronic Kidney Disease Epidemiology Collaboration (CKD-EPI) equation refit without adjustment for race Performed By: #### L AB17 ####Digital Watch Assembler: VIVIAN PANTOJA ([phone])[facility]ENTERBessy [facility] RIT[facility] (SWRLAB)[address] [place] [address] [place] Glucose [Mass/Vol] 116 mg/dL High 70-100 [facility] Comment on above: Performed By: #### L AB17 ####Digital Watch Assembler: VIVIAN PANTOJA ([phone])[facility]ENTERBessy [facility] R[facility] (SWRLAB)[address] [place] [address] [place] Potassium [Moles/Vol] 4.5 mmol/L Normal 3.5-5.1 [facility] Comment on above: Performed By: #### L AB17 ####Digital Watch Assembler: VIVIAN PANTOJA ([phone])[facility]ENTERBessy MARTINEZRUDDY RITTMAN (SWRLAB)[address] Protein [Mass/Vol] 6.5 g/dL Normal 6.3-8.2 [facility] Comment on above: Performed By: #### L AB17 ####Digital Watch Assembler: VIVIAN PANTOJA ([phone])[facility]ENTERA RUDDY RITTMAN (SWRLAB)[address] Sodium [Moles/Vol] 139 mmol/L Normal 135-145 [facility] Comment on above: Performed By: #### L AB17 ####Digital Watch Assembler: VIVIAN PANTOJA ([phone])[facility]ENTERA R[facility]DY RITTMAN (SWRLAB)[address] [place] [address] Urea nitrogen [Mass/Vol] 20 mg/dL High 7-17 [facility] Comment on above: Performed By: #### L AB17 ####Digital Watch Assembler: VIVIAN PANTOJA ([phone])[facility]ENTERBessy [facility] R[facility] (SWRLAB)[address] [place] [address] CT ABDOMEN PELVIS WO IV CONT RASTon 02-11-2024 CT ABDOMEN PELVIS WO IV CONTRAST Normal [facility] CT Abdomen and Pelvis WO con traston [...] MD Electronically Signed Date/Time: 02/11/2024 9:39 PM [facility] Patient Name: ALTA MOYA : [...] Lower endplate L1 mild compression, probably chronic. [facility] Greyson Banks MD - 02/11/2024 [facility] 1950 [id number] Exam Date/Time: 02/11/2024 21:26 Procedure: CT ABDOMEN [...] Electronically Signed Date/Time: 02/11/2024 9:39 PM EST [facility] Radiology Study observation (narrative) [facility] CT Abdomen and Pelvis WO con trastOrdered By: Greyson Banks on 02-11-2024 [facility] [employer]ia Work Phone: Comprehensive metabolic 1998 panelon 02-11-2024 Albumin [Mass/Vol] 4.2 g/dL 3.5 - 5.0 g/dL [facility] ALP [Catalytic activity/Vol] 84 U/L 38 - 126 U/L [facility] ALT [Catalytic activity/Vol] 20 U/L 0 - 34 U/L [facility] Anion gap [Moles/Vol] 7 mmol/L 3 - 13 mmol/L [facility] AST [Catalytic activity/Vol] 19 U/L 15 - 46 U/L [facility] Bilirubin [Mass/Vol] 1.9 mg/dL High 0.2 - 1 .3 mg/dL [facility] Calcium [Mass/Vol] 9.8 mg/dL 8.4 - 10. 4 mg/dL [facility] Chloride [Moles/Vol] 101 mmol/L 98 - 10 7 mmol/L [facility] CO2 [Moles/Vol] 30 mmol/L 22 - 30 mmol/L [facility] Creatinine [Mass/Vol] 0.76 mg/dL 0.52 - 1.04 mg/dL [facility] GFR/1.73 sq M.predicted (S/P/Bld) [Vol rate/Area] 83.4 mL/min - PINF [facility] Comment on above: Calculation based on the Chronic Kidney Disease Epidemiology Collaboration (CKD-EPI) equation refit without adjustment for race Glucose [Mass/Vol] 116 mg/dL High 70 - 100 mg/dL [facility] Interpretation and review of laboratory results Abnormal [facility] Potassium [Moles/Vol] 4.5 mmol/L 3.5 - 5.1 mmol/L [facility] Protein [Mass/Vol] 6.5 g/dL 6.3 - 8.2 g/dL [facility] Sodium [Moles/Vol] 139 mmol/L 135 - 145 mmol/L [facility] Urea nitrogen [Mass/Vol] 20 mg/dL High 7 - 17 mg/dL [facility] ED Nursing Noteon 02-11-2024 ED Nursing Note Normal [facility] ED Provider Noteon ED Provider Note Normal [facility] MANUAL DIFFERENTIALon 2023 BAND NEUTROPHILS TOTAL PER COUNTED LEUKOCYTES BY MANUAL COUNT 1 Normal [facility] Comment on above: Performed By: #### Manpreet SAINI, [id number] ####Digital Watch Assembler: VIVIAN PANTOJA ([phone])[facility] CENTERBessy FOX RITTMAN (SWRLAB)[address] [place] [address] [place] BANDS 0.2 10*3/uL High <=0.0 [facility] Comment on above: Performed By: #### Manpreet SAINI, [id number] ####Digital Watch Assembler: VIVIAN PANTOJA ([phone])[facility]ENTERA RUDDY RITTMAN (SWRLAB)[address] [place] [address] [place] BASOPHILS (10*3/UL) IN BLOOD BY MANUAL COUNT 0.0 10*3/uL Normal 0.0-0.2 [facility] Comment on above: Performed By: #### Manpreet [id number], [id number] ####Digital Watch Assembler: VIVIAN PANTOJA ([phone])[facility]ENTERA RUDDY RITTMAN (SWRLAB)[address] [place], [place] [address] [place] BASOPHILS TOTAL PER COUNTED LEUKOCYTES BY MANUAL COUNT 0 Normal [facility] Comment on above: Performed By: #### L [id number], [id number] ####Digital Watch Assembler: VIVIAN PANTOJA ([phone])[facility]TM[facility] (SWRLAB)[address] [place] [address] [place] BASOPHILS/100 LEUKOCYTES IN BLOOD BY MANUAL COUNT 0 % Normal 0-2 [facility] Comment on above: Performed By: #### L [id number], [id number] ####Digital Watch Assembler: VIVIAN PANTOJA ([phone])[facility] (SWRLAB)[address] [place] [address] [place] CELLS COUNTED TOTAL (#) IN BLOOD 100 Normal [facility] Comment on above: Performed By: #### L [id number], [id number] ####Digital Watch Assembler: VIVIAN PANTOJA ([phone])[facility] (SWRLAB)[address] [place] [address] [place] DIFFERENTIAL METHOD Manual differential performed Normal [facility] Comment on above: Performed By: #### L [id number], [id number] ####Digital Watch Assembler: VIVIAN PANTOJA ([id number])[facility] (SWRLAB)[address] [place] [address] [place] EOSINOPHILS (10*3/UL) IN BLOOD BY MANUAL COUNT 0.0 10*3/uL Normal 0.0-0.5 [facility] Comment on above: Performed By: #### L [id number], [id number] ####Digital Watch Assembler: VIVIAN PANTOJA ([phone])[facility] (SWRLAB)[address] [place] [address] [place] EOSINOPHILS TOTAL PER COUNTED LEUKOCYTES BY MANUAL COUNT 0 Normal 0-1 [facility] Comment on above: Performed By: #### L [id number], [id number] ####Digital Watch Assembler: VIVIAN PANTOJA ([phone])[facility] (SWRLAB)[address] [place] [address] [place] EOSINOPHILS/100 LEUKOCYTES IN BLOOD BY MANUAL COUNT 0 % Normal 0-6 [facility] Comment on above: Performed By: #### L [id number], [id number] ####Digital Watch Assembler: VIVIAN PANTOJA ([phone])[facility] R[place]TMAN (SWRLAB)[address] [place] [address] [place] LEUKOCYTE MORPHOLOGY FINDING IN BLOOD Normal Normal [facility] Comment on above: Performed By: #### L [id number], [id number] ####Digital Watch Assembler: VIVIAN PANTOJA ([phone])[facility]ENTERA R[facility] RITTMAN (SWRLAB)[address] [place] [address] [place] LEUKOCYTES (10*3/UL) NUCLEATED ERYTHROCYTE ADJUST 18.5 10*3/uL High 3.6-10.7 [facility] Comment on above: Performed By: #### L [id number], [id number] ####Digital Watch Assembler: VIVIAN PANTOJA ([phone])[facility]ENTERA R[facility] RITTMAN (SWRLAB)[address] [place] [address] [place] LYMPHOCYTES (10*3/UL) IN BLOOD BY MANUAL COUNT 0.9 10*3/uL Low 1.0-4.3 [facility] Comment on above: Performed By: #### L [id number], [id number] ####Digital Watch Assembler: VIVIAN PANTOJA ([phone])[facility]ENTERA RUDDY RITTMAN (SWRLAB)[address] [place] [address] [place] LYMPHOCYTES TOTAL PER COUNTED LEUKOCYTES BY MANUAL COUNT 5 Normal [facility] Comment on above: Performed By: #### L [id number], [id number] ####Digital Watch Assembler: VIVIAN PANTOJA ([phone])[facility]ENTERA RUDDY RITTMAN (SWRLAB)[address] [place] [address] [place] LYMPHOCYTES/100 LEUKOCYTES IN BLOOD BY MANUAL COUNT 5 % Low 15-45 [facility] Comment on above: Performed By: #### L [id number], [id number] ####Digital Watch Assembler: VIVIAN PANTOJA ([phone])[facility]ENTERA R[facility]DY RITTMAN (SWRLAB)[address] [place] [address] [place] MONOCYTES (10*3/UL) IN BLOOD BY MANUAL COUNT 6.5 10*3/uL High 0.0-0.9 [facility] Comment on above: Performed By: #### L [id number], [id number] ####Digital Watch Assembler: VIVIAN PANTOJA ([phone])[facility] CENTERBessy FOX RITTMAN (SWRLAB)[address] [place] [address] [place] MONOCYTES TOTAL PER COUNTED LEUKOCYTES BY MANUAL COUNT 35 Normal [facility] Comment on above: Performed By: #### L [id number], [id number] ####Digital Watch Assembler: VIVIAN PANTOJA ([phone])[facility]ENTERA RUDDY RITTMAN (SWRLAB)[address] [place] [address] [place] MONOCYTES/100 LEUKOCYTES IN BLOOD BY MANUAL COUNT 35 % High 5-13 [facility] Comment on above: Performed By: #### L [id number], [id number] ####Digital Watch Assembler: VIVIAN PANTOJA ([phone])[facility] CENTERBessy MARTINEZRUDDY RITTMAN (SWRLAB)[address] [place] [address] [place] NEUTROPHILS (SEGS+BANDS) (10*3/UL) BY MANUAL COUNT 11.1 10*3/uL High 1.8-7.0 [facility] Comment on above: Performed By: #### L [id number], [id number] ####Digital Watch Assembler: VIVIAN PANTOJA ([phone])[facility]ENTERA RUDDY RITTMAN (SWRLAB)[address] [place] [address] [place] NEUTROPHILS BAND FORM/100 LEUKOCYTES IN BLOOD BY MANUAL COUNT 1 % High <=0 [facility] Comment on above: Performed By: #### L [id number], [id number] ####Digital Watch Assembler: VIVIAN PANTOJA ([id number])[facility] CENTERBessy MARTINEZRUDDY RITTMAN (SWRLAB)[address] [place] [address] [place] NEUTROPHILS TOTAL PER COUNTED LEUKOCYTES BY MANUAL COUNT 59 Normal [facility] Comment on above: Performed By: #### L [id number], [id number] ####Digital Watch Assembler: VIVIAN PANTOJA ([id number])[facility] RUDDY RITTMAN (SWRLAB)[address] [place] [address] PLATELET MORPHOLOGY IN BLOOD Normal Normal [facility] Comment on above: Performed By: #### L [id number], [id number] ####Digital Watch Assembler: VIVIAN PANTOJA ([id number])[facility] RUDDY RITTMAN (SWRLAB)[address] [place] [address] RBC MORPHOLOGY IN BLOOD Normal Normal [facility] Comment on above: Performed By: #### L [id number], [id number] ####Digital Watch Assembler: VIVIAN PANTOJA ([id number])[facility]ENTERBessy MARTINEZRUDDY RITTMAN (SWRLAB)[address] [place] [address] SEGEMENTED NEUTROPHILS/100 LEUKOCYTES BY MANUAL COUNT 59 % Normal 38-82 [facility] Comment on above: Performed By: #### L [id number], [id number] ####Digital Watch Assembler: VIVIAN PANTOJA ([phone])[facility] CENTERBessy FOX RITTMAN (SWRLAB)[address] [place] [address] SEGMENTED NEUTROPHILS (10*3/UL)IN BLOOD BY MANUAL COUNT 11.1 10*3/uL High 1.8-7.5 [facility] Comment on above: Performed By: #### L [id number], [id number] ####Digital Watch Assembler: VIVIAN PANTOJA ([id number])[facility]UD[facility]ITTMAN (SWRLAB)[address] [place] [address] Manual differential performe d Ql (Bld)on 02-11-2024 Band form neutrophils (Bld) [#/Vol] 0.2 10*3/uL High NINF - 0.0 10*3/uL [facility] Band form neutrophils/100 WBC (Bld) 1 % High NINF - 0 % [facility] Bands Manual 1 [facility] Basophils (Bld) [#/Vol] 0 10*3/uL 0.0 - 0.2 10*3/uL [facility] Basophils Manual 0 [facility] Basophils/100 WBC (Bld) 0 % 0 - 2 % [facility] Cells Counted Total (Bld) [#] 100 {cells} [facility] Differential Method Manual differential performed [facility] Eosinophils (Bld) [#/Vol] 0 10*3/uL 0.0 - 0.5 10*3/uL [facility] Eosinophils Manual 0 0 - 1 [facility] Eosinophils/100 WBC (Bld) 0 % 0 - 6 % [facility] Leukocyte morphology finding Nom (Bld) Normal [facility] Lymphocytes (Bld) [#/Vol] 0.9 10*3/uL Low 1.0 - 4.3 10*3/uL [facility] Lymphocytes Manual 5 [facility] Lymphocytes/100 WBC (Bld) 5 % Low 15 - 45 % [facility] Monocytes (Bld) [#/Vol] 6.5 10*3/uL High 0.0 - 0.9 10*3/uL [facility] Monocytes Manual 35 [facility] Monocytes/100 WBC (Bld) 35 % High 5 - 13 % [facility] Neutrophils (Bld) [#/Vol] 11.1 10*3/uL High 1.8 - 7.5 10*3/uL [facility] Neutrophils Manual 59 [facility] Platelet morphology finding Nom (Bld) Normal [facility] RBC morphology finding Nom (Bld) Normal [facility] Segmented neutrophils/100 WBC (Bld) 59 % 38 - 82 % [facility] WBC corrected for nucl RBC (Bld) [#/Vol] 18.5 10*3/uL High 3.6 - 10.7 10*3/uL [facility] No Panel Informationon 02-10 Interpretation and review of laboratory results Abnormal [facility] Urinalysis complete panel (U )Ordered By: Sindy Mcpherson on 02-11-2024 Bacteria LM.HPF (Urine sed) [#/Area] Few Abnormal Negative /HPF [facility] Bilirubin Ql (U) Negative Negative mg/dL [facility] Clarity (U) Clear Clear [facility] Color (U) Yellow Lt. Yellow [facility] Epithelial cells.squamous LM.HPF (Urine sed) [#/Area] 3-5 [facility] Glucose Ql (U) Normal Normal (<70) mg/dL [facility] Hemoglobin Ql (U) 0.03 mg/dL Abnormal Negative [facility] Hyaline casts Auto (Urine sed) [#/Area] 0-2 Abnormal Negative /LPF [facility] Interpretation and review of laboratory results Abnormal [facility] Ketones (U) [Mass/Vol] Negative Negat ute mg/dL [facility] Leukocyte esterase Test strip Ql (U) Negative Negative Ghada/uL [facility] Nitrite Ql (U) Negative Negative [facility] pH (U) 6.0 [pH] 5.0 - 8.0 pH [facility] Protein (U) [Mass/Vol] 300 mg/dL Abnormal Negative [facility] RBC LM.HPF (Urine sed) [#/Area] 0-2 [facility] Specific gravity (U) [Rel density] 1.032 High 1.005 - 1.030 [facility] Urobilinogen (U) [Mass/Vol] 4 mg/dL Abnormal Normal (0-1) [facility] Volume, Urine 12 mL [facility] WBC LM.HPF (Urine sed) [#/Area] 3-5 [facility] 36on 02-09-2024 36 Pt aware. Normal [facility] 36 Normal [facility] 36on 02-08-2024 36 Normal [facility] 36 Attempted to return call. No answer. Curt Last PA-C has openings next week. Normal [facility] 36on 02-07-2024 36 Normal [facility] Progress Noteon 02-07-2024 Progress Note Normal [facility] CNOVon 02-04-2024 CNOV Office Visit (UCWSTR ) ----- ALTA BAKER ([id number]) 1950 F Date Time Provider Department 02/04/24 7:15 PM PAO ELIAS [facility] During your visit today, we recorded the following information about you: Temperature Pulse Respiration Blood pressure 97.7 degrees 88/minute 24/minute 178/86 Weight 116.6 kg Pao Elias APRN.MOVE COORDINATOR 02/04/2024 7:40 PM Signed Pain Subjective Came in with complaints of lower right back pain. Patient says it does radiate down the leg a little bit at times but not all the time. Patient denies any injuries thinks she turned wrong a couple weeks ago. Patient says is not getting any better and she has tried bmon-vqq-[id number] medication ice and heat. Patient says it is very uncomfortable and she is not able to sleep. The history is provided by the patient. No speech language pathologist prn was used. Review of Systems Constitutional: Negative. Skin: Negative. Objective Physical Exam Constitutional: Appearance: Normal appearance. Pulmonary: Effort: Pulmonary effort is normal. Skin: Comments: Patient says the pain is in the area marked above. Neurological: Mental Status: She is alert. No past medical history on file. No past surgical history on file. ALLERGIES Oxycodone, Djjcpzg-Gvx-Npp Reductase Inhibitors, and Tetanus And Diphtheria Toxoids [...] evaluation. Daughter will take her. Pao Elias APRN.MOVE COORDINATOR Allergies As of Date: 02/04/2024 Noted Allergy Reaction OXYCODONE 07/27/2017 1 - Mental Status Change Comments: Did not like the feeling [id number] REDUCTASE INHIBIT*07/07/2016 17 - Myalgia TETANUS AND [...] mg tabl (more content not included)... Normal [facility] ED Nursing Noteon 02-04-2024 ED Nursing Note Normal [facility] ED Provider Noteon ED Provider Note Normal [facility] XR Lumbar spine 2 or 3 Views [...] Electronically Signed Date/Time: 02/04/2024 9:41 PM EST [facility] Patient Name: ALTA MOYA : 1950 Exam Date/Time: 02/04/2024 21:25 Procedure: XR LUMBAR SPINE 2-3 VIEWS Ordering Provider: MALDONADO EMILIE Reason For Exam: SI joint pain, eval for fracture INDICATION: 73-year-old female; SI joint pain; evaluate for fracture. VIEWS: Lumbar spine AP and lateral and lumbosacral lateral-3 images COMPARISON: None. [facility] Selma Azevedo MD - 02/04/2024 Patient Name: [...] Electronically Signed Date/Time: 02/04/2024 9:41 PM EST [facility] Radiology Study observation (narrative) [place] XR Lumbar spine 2 or 3 Views Ordered By: Selma Azevedo on 02-04-2024 [place] Work Phone: XR Sacrum and Coccyx 2 Views on 02-04-2024 Patient Name: ALTA MOYA : 1950 Exam Date/Time: 02/04/2024 21:26 Procedure: XR SACRUM COCCYX 2+ VIEWS Ordering Provider: MALDONADO EMILIE Reason For Exam: SI joint pain, eval for fracture INDICATION: SI joint pain. VIEWS: AP sacrum, AP coccyx, lateral sacrum-3 images COMPARISON: None. [facility] Selma Azevedo MD - 02/04/2024 Patient Name: [...] Electronically Signed Date/Time: 02/04/2024 9:43 PM EST [facility] Radiology Study observation (narrative) [facility] 36on 01-31-2024 36 Noted Normal [facility] 36 Normal [facility] Progress Noteon 01-25-2024 Progress Note Some degree of white coat HTN, BP at home generally 130's. Controlled. -- metoprolol, lisinopril, lasix Normal [facility] Progress Note Normal [facility] Progress Note Normal [facility] Progress Note Moderate pulmonary regurgitation likely multifactorial secondary to obesity and CHRISTIANNE -Recommend compliance with CPAP -Continue Lasix Normal [facility] Progress Note Remains on digoxin. Dig level acceptable 03/2023. - continue digoxin - dig level usually drawn by PCP Normal [facility] Progress Note Normal [facility] Progress Note Permanent, nonvalvul ar. [id number] equals 4. Remains rate controlled today. -Continue metoprolol 100 mg p.o. twice daily -Continue digoxin 125 mcg po daily -Continue Eliquis 5 mg p.o. twice daily Normal [facility] XR Chest 2 Viewson Impression: Uphh-pp-cghjtwsa cardiomegaly. No acute pulmonary process. Report Dictated on Electronically Signed By: Esvin Bradley MD Electronically Signed Date/Time: 12/16/2023 10:32 AM [facility]: [facility] : 1950 [id number] Exam Date/Time: 12/16/2023 09:58 Procedure: XR CHEST [...] and spine with mild upper thoracic kyphosis.. [facility] Esvin Bradley MD - 12/16/2023 Patient Name: [...] with mild upper thoracic kyphosis.. IMPRESSION: Impression: Jbyv-xu-jltzdprd cardiomegaly. No acute pulmonary process. Report Dictated on Electronically Signed By: Esvin Bradley MD Electronically Signed Date/Time: 12/16/2023 10:32 AM EDT [facility] Radiology Study observation (narrative) [facility] XR Chest 2 ViewsOrdered By: Esvin Bradley on 12-16-2023 [place] [employer] Work Phone: CBC W Auto Differential pane l (Bld)Ordered By: Isaura Lebron on 12-14-2023 Basophils (Bld) [#/Vol] 0.0 10*3/uL 0.0 - 0.2 10*3/uL [facility] Basophils/100 WBC (Bld) 0.1 % 0.0 - 2.0 % [facility] Eosinophils (Bld) [#/Vol] 0.0 10*3/uL 0.0 - 0.5 10*3/uL [facility] Eosinophils/100 WBC (Bld) 0.2 % 0.0 - 6.0 % [facility] Erythrocyte distribution width (RBC) [Ratio] 14.9 % 11.5 - 15.0 % [facility] Hematocrit (Bld) [Volume fraction] 41.4 % 35.0 - 47.0 % [facility] Hemoglobin (Bld) [Mass/Vol] 13.3 g/dL 11.7 - 16.0 g/dL [facility] Immature granulocytes (Bld) [#/Vol] 0.3 10*3/uL High NINF - 0.1 10*3/uL [facility] Immature granulocytes/100 WBC (Bld) 1.4 % 0.0 - 2.0 % [facility] Interpretation and review of laboratory results Abnormal [facility] IPF 21 [facility] Lymphocytes (Bld) [#/Vol] 2.7 10*3/uL 1.0 - 4.3 10*3/uL [facility] Lymphocytes/100 WBC (Bld) 13.3 % Low 15.0 - 45.0 % [facility] MCH (RBC) [Entitic mass] 28.0 pg 26.0 - 34.0 pg [facility] MCHC (RBC) [Mass/Vol] 32.1 % 30.5 - 36.0 % [facility] MCV (RBC) [Entitic vol] 87.2 fL 77.0 - 99.0 fL [facility] Monocytes (Bld) [#/Vol] 6.1 10*3/uL High 0.0 - 0.9 10*3/uL [facility] Monocytes/100 WBC (Bld) 30.2 % High 5.0 - 13.0 % [facility] Neutrophils (Bld) [#/Vol] 11.1 10*3/uL High 1.8 - 7.5 10*3/uL [facility] Neutrophils/100 WBC (Bld) 54.8 % 38.0 - 82.0 % [facility] Nucleated RBC/100 WBC (Bld) [Ratio] 0.0 % [facility] Platelet mean volume (Bld) [Entitic vol] [facility] Comment on above: Instrument unable to calculate MPV. Platelets (Bld) [#/Vol] 77 10*3/uL Low 140 - 440 10*3/uL [facility] RBC (Bld) [#/Vol] 4.75 10*6/uL 3.80 - 5.2 0 10*6/uL [facility] WBC (Bld) [#/Vol] 20.2 10*3/uL High 3.6 - 10.7 10*3/uL [facility] Urinalysis complete panel (U )on 12-14-2023 Bacteria LM.HPF (Urine sed) [#/Area] Negative Negative /HPF [facility] Bilirubin Ql (U) Negative Negative mg/dL [facility] Clarity (U) Clear Clear [facility] Color (U) Light Yellow Lt. Yellow [facility] Epithelial cells.squamous LM.HPF (Urine sed) [#/Area] 3-5 [facility] Glucose Ql (U) Normal Normal (<70) mg/dL [facility] Hemoglobin Ql (U) 0.2 mg/dL Abnormal Negative [facility] Interpretation and review of laboratory results Abnormal [facility] Ketones (U) [Mass/Vol] Negative Negat ute mg/dL [facility] Leukocyte esterase Test strip Ql (U) Negative Negative Ghada/uL [facility] Nitrite Ql (U) Negative Negative [facility] pH (U) 7.0 [pH] 5.0 - 8.0 pH [facility] Protein (U) [Mass/Vol] 10 mg/dL Abnormal Negative [facility] RBC LM.HPF (Urine sed) [#/Area] 6-10 Abnormal [facility] Specific gravity (U) [Rel density] 1.016 1.005 - 1.030 [facility] Urobilinogen (U) [Mass/Vol] 2 mg/dL Abnormal Normal (0-1) [facility] Volume, Urine 8-12 mL [facility] WBC LM.HPF (Urine sed) [#/Area] 3-5 [facility] Basic Metabolic Profile (BMP )on 12-06-2023 BUN Normal - [facility] Comment on above: Result Comment: Canc elled via OM: Order cancelled - Patient discharged Performed By: #### L 100.0100, L500.4050 #### [facility] [address] [place], [address] BUN/CRE Normal - [facility] Comment on above: Result Comment: Canc elled via OM: Order cancelled - Patient discharged Performed By: #### L 100.0100, L500.4050 #### [facility] [address] [place], [address] CA,Total Normal 8.5-10.1 [facility] Comment on above: Result Comment: Canc elled via OM: Order cancelled - Patient discharged Performed By: #### L 100.0100, L500.4050 #### [facility] [address] [place], [address] CL Normal 98-107 [facility] Comment on above: Result Comment: Canc elled via OM: Order cancelled - Patient discharged Performed By: #### L 100.0100, [id number] #### [facility] [address] [place], [address] CO2 Normal 21.0-32.0 [facility] Comment on above: Result Comment: Canc elled via OM: Order cancelled - Patient discharged Performed By: #### L 100.0100, L500.4050 #### [facility] [address] [place], [address] CREAT,SERUM Normal 0.55-1.02 [facility] Comment on above: Result Comment: Canc elled via OM: Order cancelled - Patient discharged Performed By: #### L 100.0100, L500.4050 #### [facility] [address] [place], [address] EST GFR Normal >60 [facility] Comment on above: Result Comment: Canc elled via OM: Order cancelled - Patient discharged Performed By: #### L 100.0100, L500.4050 #### [facility] [address] [place], [address] EST GFR - AA Normal >60 [facility] Comment on above: Result Comment: Canc elled via OM: Order cancelled - Patient discharged Performed By: #### L 100.0100, L500.4050 #### [facility] [address] [place], [address] GAP Normal 5-15 [facility] Comment on above: Result Comment: Canc elled via OM: Order cancelled - Patient discharged Performed By: #### L 100.0100, L500.4050 #### [facility] [address] [place], [address] GLU Normal 74-106 [facility] Comment on above: Result Comment: Canc elled via OM: Order cancelled - Patient discharged Performed By: #### L 100.0100, L500.4050 #### [facility] [address] [place], [address] Potassium Normal 3.5-5.1 [facility] Comment on above: Result Comment: Canc elled via OM: Order cancelled - Patient discharged Performed By: #### L 100.0100, L500.4050 #### [facility] [address] [place], [address] Basic Metabolic Profile (BMP) Normal 136-145 [facility] Comment on above: Result Comment: Canc elled via OM: Order cancelled - Patient discharged Performed By: #### L 100.0100, L500.4050 #### [facility] [address] [place], [address] CBC W/Diff, Automatedon 09-2 Absolute Neut Normal 2.0-7.7 [facility] Comment on above: Result Comment: Canc elled via OM: Order cancelled - Patient discharged Performed By: #### L 100.0100, L500.4050 #### [facility] [address] [place], [address] HCT Normal 37-47 [facility] Comment on above: Result Comment: Canc elled via OM: Order cancelled - Patient discharged Performed By: #### L 100.0100, L500.4050 #### [facility] [address] [place], [address] HGB Normal 12.0-15.0 [facility] Comment on above: Result Comment: Canc elled via OM: Order cancelled - Patient discharged Performed By: #### L 100.0100, L500.4050 #### [facility] [address] [place], [address] MCH Normal 27.0-32.0 [facility] Comment on above: Result Comment: Canc elled via OM: Order cancelled - Patient discharged Performed By: #### L 100.0100, L500.4050 #### [facility] [address] [place], [address] MCHC Normal 32-36 [facility] Comment on above: Result Comment: Canc elled via OM: Order cancelled - Patient discharged Performed By: #### L 100.0100, L500.4050 #### [facility] [address] [place], [address] MCV Normal 81-99 [facility] Comment on above: Result Comment: Canc elled via OM: Order cancelled - Patient discharged Performed By: #### L 100.0100, L500.4050 #### [facility] [address] [place], [address] NEUT% Normal 47-70 [facility] Comment on above: Result Comment: Canc elled via OM: Order cancelled - Patient discharged Performed By: #### L 100.0100, L500.4050 #### [facility] [address] [place], [address] PLT Normal 150-450 [facility] Comment on above: Result Comment: Canc elled via OM: Order cancelled - Patient discharged Performed By: #### L 100.0100, L500.4050 #### [facility] [address] [place], [address] RBC Normal 4.2-5.4 [facility] Comment on above: Result Comment: Canc elled via OM: Order cancelled - Patient discharged Performed By: #### L 100.0100, L500.4050 #### [facility] [address] [place], [address] RDW CV Normal 11.6-14.6 [facility] Comment on above: Result Comment: Canc elled via OM: Order cancelled - Patient discharged Performed By: #### L 100.0100, L500.4050 #### [facility] [address] [place], [address] RDW SD Normal 35.1-43.9 [facility] Comment on above: Result Comment: Canc elled via OM: Order cancelled - Patient discharged Performed By: #### L 100.0100, L500.4050 #### [facility] [address] [place], [address] WBC Normal 4.4-11.0 [facility] Comment on above: Result Comment: Canc elled via OM: Order cancelled - Patient discharged Performed By: #### L 100.0100, L500.4050 #### [facility] [address] [place], [address] Culture, Blood (WB)on 2023 CUB Blood cultures x2 fr om two different sites No growth in 5 days. Normal [facility] Comment on above: Performed By: #### L 100.0100, L500.4050 #### [facility] [address] [place], [address] Basic Metabolic Profile (BMP )on 12-05-2023 BUN Normal 7-18 [facility] Comment on above: Result Comment: Canc elled via OM: Order cancelled - Patient discharged Performed By: #### M 300.4500, M300.4600 #### [facility] [address] [place], [address] BUN/CRE Normal 10-20 [facility] Comment on above: Result Comment: Canc elled via OM: Order cancelled - Patient discharged Performed By: #### M 300.4500, M300.4600 #### [facility] [address] [place], [address] CA,Total Normal 8.5-10.1 [facility] Comment on above: Result Comment: Canc elled via OM: Order cancelled - Patient discharged Performed By: #### M 300.4500, M300.4600 #### [facility] [address] [place], [address] CL Normal 98-107 [facility] Comment on above: Result Comment: Canc elled via OM: Order cancelled - Patient discharged Performed By: #### M 300.4500, M300.4600 #### [facility] [address] [place], [address] CO2 Normal 21.0-32.0 [facility] Comment on above: Result Comment: Canc elled via OM: Order cancelled - Patient discharged Performed By: #### M 300.4500, M300.4600 #### [facility] [address] [place], [address] CREAT,SERUM Normal 0.55-1.02 [facility] Comment on above: Result Comment: Canc elled via OM: Order cancelled - Patient discharged Performed By: #### M 300.4500, M300.4600 #### [facility] [address] [place], [address] EST GFR Normal >60 [facility] Comment on above: Result Comment: Canc elled via OM: Order cancelled - Patient discharged Performed By: #### M 300.4500, M300.4600 #### [facility] [address] [place], [address] EST GFR - AA Normal >60 [facility] Comment on above: Result Comment: Canc elled via OM: Order cancelled - Patient discharged Performed By: #### M 300.4500, M300.4600 #### [facility] [address] [place], [address] GAP Normal 5-15 [facility] Comment on above: Result Comment: Canc elled via OM: Order cancelled - Patient discharged Performed By: #### M 300.4500, M300.4600 #### [facility] [address] [place], [address] GLU Normal 74-106 [facility] Comment on above: Result Comment: Canc elled via OM: Order cancelled - Patient discharged Performed By: #### M 300.4500, M300.4600 #### [facility] [address] [place], [address] Potassium Normal 3.5-5.1 [facility] Comment on above: Result Comment: Canc elled via OM: Order cancelled - Patient discharged Performed By: #### M 300.4500, M300.4600 #### [facility] [address] [place], [address] Basic Metabolic Profile (BMP) Normal 136-145 [facility] Comment on above: Result Comment: Canc elled via OM: Order cancelled - Patient discharged Performed By: #### M 300.4500, M300.4600 #### [facility] [address] [place], [address] CBC W/Diff, Automatedon 09-2 -2023 Absolute Neut Normal 2.0-7.7 [facility] Comment on above: Result Comment: Canc elled via OM: Order cancelled - Patient discharged Performed By: #### M 300.4500, M300.4600 #### [facility] [address] [place], [address] HCT Normal 37-47 [facility] Comment on above: Result Comment: Canc elled via OM: Order cancelled - Patient discharged Performed By: #### M 300.4500, M300.4600 #### [facility] [address] [place], [address] HGB Normal 12.0-15.0 [facility] Comment on above: Result Comment: Canc elled via OM: Order cancelled - Patient discharged Performed By: #### M 300.4500, M300.4600 #### [facility] [address] [place], [address] MCH Normal 27.0-32.0 [facility] Comment on above: Result Comment: Canc elled via OM: Order cancelled - Patient discharged Performed By: #### M 300.4500, M300.4600 #### [facility] [address] [place], [address] MCHC Normal 32-36 [facility] Comment on above: Result Comment: Canc elled via OM: Order cancelled - Patient discharged Performed By: #### M 300.4500, M300.4600 #### [facility] [address] [place], [address] MCV Normal 81-99 [facility] Comment on above: Result Comment: Canc elled via OM: Order cancelled - Patient discharged Performed By: #### M 300.4500, M300.4600 #### [facility] [address] [place], [address] NEUT% Normal 47-70 [facility] Comment on above: Result Comment: Canc elled via OM: Order cancelled - Patient discharged Performed By: #### M 300.4500, M300.4600 #### [facility] [address] [place], [address] PLT Normal 150-450 [facility] Comment on above: Result Comment: Canc elled via OM: Order cancelled - Patient discharged Performed By: #### M 300.4500, M300.4600 #### [facility] [address] [place], [address] RBC Normal 4.2-5.4 [facility] Comment on above: Result Comment: Canc elled via OM: Order cancelled - Patient discharged Performed By: #### M 300.4500, M300.4600 #### [facility] [address] [place], [address] RDW CV Normal 11.6-14.6 [facility] Comment on above: Result Comment: Canc elled via OM: Order cancelled - Patient discharged Performed By: #### M 300.4500, M300.4600 #### [facility] [address] [place], [address] RDW SD Normal 35.1-43.9 [facility] Comment on above: Result Comment: Canc elled via OM: Order cancelled - Patient discharged Performed By: #### M 300.4500, M300.4600 #### [facility] [address] [place], [address] WBC Normal 4.4-11.0 [facility] Comment on above: Result Comment: Canc elled via OM: Order cancelled - Patient discharged Performed By: #### M 300.4500, M300.4600 #### [facility] [address] [place], [address] Basic Metabolic Profile (BMP )on 12-04-2023 BUN Normal 7-18 [facility] Comment on above: Result Comment: Canc elled via OM: Order cancelled - Patient discharged Performed By: #### L 100.0100, L500.4050 #### [facility] [address] [place], [address] BUN/CRE Normal 10-20 [facility] Comment on above: Result Comment: Canc elled via OM: Order cancelled - Patient discharged Performed By: #### L 100.0100, L500.4050 #### [facility] [address] [place], [address] CA,Total Normal 8.5-10.1 [facility] Comment on above: Result Comment: Canc elled via OM: Order cancelled - Patient discharged Performed By: #### L 100.0100, L500.4050 #### [facility] [address] [place], [address] CL Normal 98-107 [facility] Comment on above: Result Comment: Canc elled via OM: Order cancelled - Patient discharged Performed By: #### L 100.0100, L500.4050 #### [facility] [address] [place], [address] CO2 Normal 21.0-32.0 [facility] Comment on above: Result Comment: Canc elled via OM: Order cancelled - Patient discharged Performed By: #### L 100.0100, L500.4050 #### [facility] [address] [place], [address] CREAT,SERUM Normal 0.55-1.02 [facility] Comment on above: Result Comment: Canc elled via OM: Order cancelled - Patient discharged Performed By: #### L 100.0100, L500.4050 #### [facility] [address] [place], [address] EST GFR Normal >60 [facility] Comment on above: Result Comment: Canc elled via OM: Order cancelled - Patient discharged Performed By: #### L 100.0100, L500.4050 #### [facility] [address] [place], [address] EST GFR - AA Normal >60 [facility] Comment on above: Result Comment: Canc elled via OM: Order cancelled - Patient discharged Performed By: #### L 100.0100, L500.4050 #### [facility] [address] [place], [address] GAP Normal 5-15 [facility] Comment on above: Result Comment: Canc elled via OM: Order cancelled - Patient discharged Performed By: #### L 100.0100, L500.4050 #### [facility] [address] [place], [address] GLU Normal 74-106 [facility] Comment on above: Result Comment: Canc elled via OM: Order cancelled - Patient discharged Performed By: #### L 100.0100, L500.4050 #### [facility] [address] [place], [address] Potassium Normal 3.5-5.1 [facility] Comment on above: Result Comment: Canc elled via OM: Order cancelled - Patient discharged Performed By: #### L 100.0100, L500.4050 #### [facility] [address] [place], [address] Basic Metabolic Profile (BMP) Normal 136-145 [facility] Comment on above: Result Comment: Canc elled via OM: Order cancelled - Patient discharged Performed By: #### L 100.0100, L500.4050 #### [facility] [address] [place], [address] CBC W/Diff, Automatedon 09-2 Absolute Neut Normal 2.0-7.7 [facility] Comment on above: Result Comment: Canc elled via OM: Order cancelled - Patient discharged Performed By: #### L 100.0100, L500.4050 #### [facility] [address] [place], [address] HCT Normal 37-47 [facility] Comment on above: Result Comment: Canc elled via OM: Order cancelled - Patient discharged Performed By: #### L 100.0100, L500.4050 #### [facility] [address] [place], [address] HGB Normal 12.0-15.0 [facility] Comment on above: Result Comment: Canc elled via OM: Order cancelled - Patient discharged Performed By: #### L 100.0100, L500.4050 #### [facility] [address] [place], [address] MCH Normal 27.0-32.0 [facility] Comment on above: Result Comment: Canc elled via OM: Order cancelled - Patient discharged Performed By: #### L 100.0100, L500.4050 #### [facility] [address] [place], [address] MCHC Normal 32-36 [facility] Comment on above: Result Comment: Canc elled via OM: Order cancelled - Patient discharged Performed By: #### L 100.0100, L500.4050 #### [facility] [address] [place], [address] MCV Normal 81-99 [facility] Comment on above: Result Comment: Canc elled via OM: Order cancelled - Patient discharged Performed By: #### L 100.0100, L500.4050 #### [facility] [address] [place], [address] NEUT% Normal 47-70 [facility] Comment on above: Result Comment: Canc elled via OM: Order cancelled - Patient discharged Performed By: #### L 100.0100, L500.4050 #### [facility] [address] [place], [address] PLT Normal 150-450 [facility] Comment on above: Result Comment: Canc elled via OM: Order cancelled - Patient discharged Performed By: #### L 100.0100, L500.4050 #### [facility] [address] [place], [address] RBC Normal 4.2-5.4 [facility] Comment on above: Result Comment: Canc elled via OM: Order cancelled - Patient discharged Performed By: #### L 100.0100, L500.4050 #### [facility] [address] [place], [address] RDW CV Normal 11.6-14.6 [facility] Comment on above: Result Comment: Canc elled via OM: Order cancelled - Patient discharged Performed By: #### L 100.0100, L500.4050 #### [facility] [address] [place], [address] RDW SD Normal 35.1-43.9 [facility] Comment on above: Result Comment: Canc elled via OM: Order cancelled - Patient discharged Performed By: #### L 100.0100, L500.4050 #### [facility] [address] [place], [address] WBC Normal 4.4-11.0 [facility] Comment on above: Result Comment: Canc elled via OM: Order cancelled - Patient discharged Performed By: #### L 100.0100, L500.4050 #### [facility] [address] [place], [address] Respiratory Cultureon 2023 RESPC Presumptive C albica [...] S Penicillin Islt DESTIN <=0.06 S Normal [facility] Comment on above: Performed By: #### L 500.2500, L100.0100, L501.5425, L503.6620 #### [facility] [address] [place], [address] Basic Metabolic Profile (BMP )on 12-03-2023 BUN/CRE 30.6 RATIO High 10-20 [facility] Comment on above: Performed By: #### L 100.0100, L500.4050 #### [facility] [address] [place], [address] CA,Total 9.0 mg/dL Normal 8.5-10.1 [facility] Comment on above: Performed By: #### L 100.0100, L500.4050 #### [facility] [address] [place], [address] Chloride [Moles/Vol] 99 mmol/L Normal 98-107 [facility] Comment on above: Performed By: #### L 100.0100, L500.4050 #### [facility] [address] [place], [address] CO2 [Moles/Vol] 35.0 mmol/L High 21.0-32.0 [facility] Comment on above: Performed By: #### L 100.0100, L500.4050 #### [facility] [address] [place], [address] Creatinine [Mass/Vol] 0.65 mg/dL Normal 0.55-1.02 [facility] Comment on above: Result Comment: The validity of the calculated GFR GFRAA in patients over 70 years has not been determined. Clinical correlation is essential. Performed By: #### L 100.0100, L500.4050 #### [facility] [address] [place], [address] ECRCL 73.39 ml/min Normal [facility] Comment on above: Performed By: #### L 100.0100, L500.4050 #### [facility] [address] [place], [address] EST GFR - AA 114 mL/min Normal >60 [facility] Comment on above: Result Comment: Afri can Swazi GFR Calc Performed By: #### L 100.0100, L500.4050 #### [facility] [address] [place], [address] GAP 6 Normal 5-15 [facility] Comment on above: Performed By: #### L 100.0100, L500.4050 #### [facility] [address] [place], [address] GFR/1.73 sq M.predicted among non-blacks MDRD (S/P/Bld) [Vol rate/Area] 95 mL/min/{1.73_m2} Normal >60 [facility] Comment on above: Result Comment: Non- GFR Calc Performed By: #### L 100.0100, L500.4050 #### [facility] [address] [place], [address] Glucose [Mass/Vol] 118 mg/dL High 74-106 [facility] Comment on above: Result Comment: Fast ing Glucose result from 100 to 125 mg/dL suggests IMPAIRED HOMEOSTASIS per A.D.A. criteria. Performed By: #### L 100.0100, L500.4050 #### [facility] [address] [place], [address] Potassium [Moles/Vol] 3.7 mmol/L Normal 3.5-5.1 [facility] Comment on above: Performed By: #### L 100.0100, L500.4050 #### [facility] [address] [place], [address] Sodium [Moles/Vol] 140 mmol/L Normal 136-145 [facility] Comment on above: Performed By: #### L 100.0100, L500.4050 #### [facility] [address] [place], [address] Urea nitrogen [Mass/Vol] 20 mg/dL High 7-18 [facility] Comment on above: Performed By: #### L 100.0100, L500.4050 #### [facility] [address] [place], [address] CBC W/Diff, Automatedon 11-14 PATH REV Reviewed Normal [facility] Comment on above: Result Comment: Leuk ocytosis, ABSOLUTE MONOCYTOSIS Normocytic anemia. MILD Thrombocytopenia. Clinical correlation necessary. Mehul Robins M.D. 12/03/23 AMENDED REPORT 12/03/23 1403 PATH REV previously reported as: July anel Performed By: #### L 100.0100, L500.4050 #### [facility] [address] [place], [address] PATH REV Reviewed Normal [facility] Comment on above: Result Comment: Norm ocytic anemia. Neutrophilic leukocytosis. MILD Thrombocytopenia. Clinical correlation necessary. Mehul Robins M.D. 12/03/23 AMENDED REPORT 12/03/23 1357 PATH REV previously reported as: July Performed By: #### L 100.0100, L500.4050 #### [facility] [address] [place], [address] Discharge Instructionon 11-14 Discharge Instruction [facility] Medical Records Department [address] [place] [address] Instructions for Home/Discharge Instructions 12/03/23 1107 MR#: [id number] Acct: [id number] Name: JOANN BAKERRA Johnston Rep #: [id number] : 1950 73 From: Luna Bustamante MD [...] CC: Dr. Davis Irene DO Signed Normal [facility] Urine Cultureon 12-03-2023 URC Below infection leve l. Mixed Gram Pos Gram Neg Org [place] Count 1000-10,000 MIXC Mixed contaminants. Submit a new specimen if indicated. Normal [facility] Comment on above: Performed By: #### M 100.638 #### [facility] [address] [place], [address] URC Presumptive E. coli [place] Count 11,000-25,000 Presumptive E. coli: REACTION Ampicillin [...] Pip+Tazo Islt DESTIN <=4 S Tobramycin Islt EDSTIN <=1 S TMP SMX Islt DESTIN <=20 S Normal [facility] Comment on above: Performed By: #### L 500.2500, L100.0100, L501.5425, L503.6620 #### [facility] [address] [place], [place], [address] CBC W/Diff, Automatedon 11-13 PATH REV Reviewed Normal [facility] Comment on above: Result Comment: Leuk ocytosis, ABSOLUTE MONOCYTOSIS Normocytic anemia. MILD Thrombocytopenia. Clinical correlation necessary. Mehul Robins M.D. 12/02/23 AMENDED REPORT 12/02/23 1506 PATH REV previously reported as: July anel Performed By: #### L 500.2500, L100.0100, L501.5425, L503.6620 #### [facility] [address] [place], [address] Comprehensive Metabolic Prof ilon 12-02-2023 Albumin [Mass/Vol] 3.2 g/dL Normal 3.2-5.0 [facility] Comment on above: Order Comment: REDRA W. PREVIOUS SPECIMEN REJECTED DUE TO HEMOLYSIS. 12/02/23711 Curt Thacker. Performed By: #### L 500.4050 #### [facility] [address] [place], [address] Albumin/Globulin [Mass ratio] 0.9 {ratio} Normal 0.9-2.4 [facility] Comment on above: Order Comment: REDRA W. PREVIOUS SPECIMEN REJECTED DUE TO HEMOLYSIS. 12/02/23711 Curt Thacker. Performed By: #### L 500.4050 #### [facility] [address] [place], [address] ALK P 82 U/L Normal 45-117 [facility] Comment on above: Order Comment: REDRA W. PREVIOUS SPECIMEN REJECTED DUE TO HEMOLYSIS. 12/02/23711 Curt Thacker. Performed By: #### L 500.4050 #### [facility] [address] [place], [address] ALT [Catalytic activity/Vol] 18 U/L Normal 13-56 [facility] Comment on above: Order Comment: REDRA W. PREVIOUS SPECIMEN REJECTED DUE TO HEMOLYSIS. 12/02/23711 Curt Thacker. Performed By: #### L 500.4050 #### [facility] [address] [place], [address] AST [Catalytic activity/Vol] 7 U/L Low 15-37 [facility] Comment on above: Order Comment: REDRA W. PREVIOUS SPECIMEN REJECTED DUE TO HEMOLYSIS. 12/02/23711 Curt Thacker. Performed By: #### L 500.4050 #### [facility] [address] [place], [address] Bilirubin [Mass/Vol] 1.80 mg/dL High 0.20-1.00 [facility] Comment on above: Order Comment: REDRA W. PREVIOUS SPECIMEN REJECTED DUE TO HEMOLYSIS. 12/02/23711 Curt Thacker. Result Comment: For patients on eltrombopag therapy, use of Dimension [place] TBIL is not recommended. Performed By: #### L 500.4050 #### [facility] [address] [place], [address] BUN/CRE 25.8 RATIO High 10-20 [facility] Comment on above: Order Comment: REDRA W. PREVIOUS SPECIMEN REJECTED DUE TO HEMOLYSIS. 12/02/23711 Curt Thacker. Performed By: #### L 500.4050 #### [facility] [address] [place], [address] CA,Total 9.2 mg/dL Normal 8.5-10.1 [facility] Comment on above: Order Comment: REDRA W. PREVIOUS SPECIMEN REJECTED DUE TO HEMOLYSIS. 12/02/23711 Curt Thacker. Performed By: #### L 500.4050 #### [facility] [address] [place], [address] Chloride [Moles/Vol] 100 mmol/L Normal 98-107 [facility] Comment on above: Order Comment: REDRA W. PREVIOUS SPECIMEN REJECTED DUE TO HEMOLYSIS. 12/02/23711 Curt Thacker. Performed By: #### L 500.4050 #### [facility] [address] [place], [address] CO2 [Moles/Vol] 38.0 mmol/L High 21.0-32.0 [facility] Comment on above: Order Comment: REDRA W. PREVIOUS SPECIMEN REJECTED DUE TO HEMOLYSIS. 12/02/23711 Curt Thacker. Performed By: #### L 500.4050 #### [facility] [address] [place], [address] Creatinine [Mass/Vol] 0.62 mg/dL Normal 0.55-1.02 [facility] Comment on above: Order Comment: REDRA W. PREVIOUS SPECIMEN REJECTED DUE TO HEMOLYSIS. 12/02/23711 Curt Thacker. Result Comment: The validity of the calculated GFR GFRAA in patients over 70 years has not been determined. Clinical correlation is essential. Performed By: #### L 500.4050 #### [facility] [address] [place], [address] ECRCL 73.39 ml/min Normal [facility] Comment on above: Order Comment: REDRA W. PREVIOUS SPECIMEN REJECTED DUE TO HEMOLYSIS. 12/02/23711 Curt Thacker. Performed By: #### L 500.4050 #### [facility] [address] [place], [address] EST GFR - AA 121 mL/min Normal >60 [facility] Comment on above: Order Comment: REDRA W. PREVIOUS SPECIMEN REJECTED DUE TO HEMOLYSIS. 12/02/23711 Curt Thacker. Result Comment: Afri can Swazi GFR Calc Performed By: #### L 500.4050 #### [facility] [address] [place], [address] GAP 3 Low 5-15 [facility] Comment on above: Order Comment: REDRA W. PREVIOUS SPECIMEN REJECTED DUE TO HEMOLYSIS. 12/02/23711 Curt Thacker. Performed By: #### L 500.4050 #### [facility] [address] [place], [address] GFR/1.73 sq M.predicted among non-blacks MDRD (S/P/Bld) [Vol rate/Area] 100 mL/min/{1.73_m2} Normal >60 [facility] Comment on above: Order Comment: REDRA W. PREVIOUS SPECIMEN REJECTED DUE TO HEMOLYSIS. 12/02/23711 Curt Thacker. Result Comment: Non- GFR Calc Performed By: #### L 500.4050 #### [facility] [address] [place], [address] Globulin (S) [Mass/Vol] 3.5 g/dL Normal 2.2-4.2 [facility] Comment on above: Order Comment: REDRA W. PREVIOUS SPECIMEN REJECTED DUE TO HEMOLYSIS. 12/02/23711 Curt Thacker. Performed By: #### L 500.4050 #### [facility] [address] [place], [address] Glucose [Mass/Vol] 132 mg/dL High 74-106 [facility] Comment on above: Order Comment: REDRA W. PREVIOUS SPECIMEN REJECTED DUE TO HEMOLYSIS. 12/02/23711 Curt Thacker. Result Comment: Fast ing Glucose result greater than or equal to 126 mg/dL suggests DIABETES MELLITUS per A.D.A. criteria. Performed By: #### L 500.4050 #### [facility] [address] [place], [address] Potassium [Moles/Vol] 3.9 mmol/L Normal 3.5-5.1 [facility] Comment on above: Order Comment: REDRA W. PREVIOUS SPECIMEN REJECTED DUE TO HEMOLYSIS. 12/02/23711 Curt Thacker. Performed By: #### L 500.4050 #### [facility] [address] [place], [address] Sodium [Moles/Vol] 141 mmol/L Normal 136-145 [facility] Comment on above: Order Comment: REDRA W. PREVIOUS SPECIMEN REJECTED DUE TO HEMOLYSIS. 12/02/23711 Curt Thacker. Performed By: #### L 500.4050 #### [facility] [address] [place], [address] T PROT 6.7 g/dL Normal 6.4-8.2 [facility] Comment on above: Order Comment: REDRA W. PREVIOUS SPECIMEN REJECTED DUE TO HEMOLYSIS. 12/02/23711 Curt Thacker. Performed By: #### L 500.4050 #### [facility] [address] [place], [place], [address] Urea nitrogen [Mass/Vol] 16 mg/dL Normal 7-18 [facility] Comment on above: Order Comment: REDRA W. PREVIOUS SPECIMEN REJECTED DUE TO HEMOLYSIS. 12/02/23 0712 Curt L White. Performed By: #### L 500.4050 #### [facility] Laboratory [address] [place], [address] ALB Normal 3.2-5.0 [facility] Comment on above: Result Comment: This specimen has been REJECTED due to Laboratory criteria: Hemolyzed. ACCOUNTS RECEIVABLE EXECUTIVE has been notified of need of recollection. 12/02/23 07 Curt L White Performed By: #### L 100.0100, L500.4050 #### [facility] [address] [place], [address] ALK P Normal 45-117 [facility] Comment on above: Result Comment: This specimen has been REJECTED due to Laboratory criteria: Hemolyzed. ACCOUNTS RECEIVABLE EXECUTIVE has been notified of need of recollection. 12/02/23 07 Curt L White Performed By: #### L 100.0100, L500.4050 #### [facility] [address] [place], [address] ALT Normal 13-56 [facility] Comment on above: Result Comment: This specimen has been REJECTED due to Laboratory criteria: Hemolyzed. ACCOUNTS RECEIVABLE EXECUTIVE has been notified of need of recollection. 12/02/23 07 Curt L White Performed By: #### L 100.0100, L500.4050 #### [facility] [address] [place], [address] AST Normal 15-37 [facility] Comment on above: Result Comment: This specimen has been REJECTED due to Laboratory criteria: Hemolyzed. ACCOUNTS RECEIVABLE EXECUTIVE has been notified of need of recollection. 12/02/23 07 Curt L White Performed By: #### L 100.0100, L500.4050 #### [facility] [address] [place], [address] BUN Normal 7-18 [facility] Comment on above: Result Comment: This specimen has been REJECTED due to Laboratory criteria: Hemolyzed. ACCOUNTS RECEIVABLE EXECUTIVE has been notified of need of recollection. 12/02/23708 Curt L White Performed By: #### L 100.0100, L500.4050 #### [facility] [address] [place], [address] BUN/CRE Normal 10-20 [facility] Comment on above: Result Comment: This specimen has been REJECTED due to Laboratory criteria: Hemolyzed. ACCOUNTS RECEIVABLE EXECUTIVE has been notified of need of recollection. 12/02/23708 Curt L White Performed By: #### L 100.0100, L500.4050 #### [facility] [address] [place], [address] CA,Total Normal 8.5-10.1 [facility] Comment on above: Result Comment: This specimen has been REJECTED due to Laboratory criteria: Hemolyzed. ACCOUNTS RECEIVABLE EXECUTIVE has been notified of need of recollection. 12/02/23708 Curt L White Performed By: #### L 100.0100, L500.4050 #### [facility] [address] [place], [address] CL Normal 98-107 [facility] Comment on above: Result Comment: This specimen has been REJECTED due to Laboratory criteria: Hemolyzed. ACCOUNTS RECEIVABLE EXECUTIVE has been notified of need of recollection. 12/02/23708 Curt L White Performed By: #### L 100.0100, L500.4050 #### [facility] [address] [place], [address] CO2 Normal 21.0-32.0 [facility] Comment on above: Result Comment: This specimen has been REJECTED due to Laboratory criteria: Hemolyzed. ACCOUNTS RECEIVABLE EXECUTIVE has been notified of need of recollection. 12/02/23708 Curt L White Performed By: #### L 100.0100, L500.4050 #### [facility] [address] [place], [address] CREAT,SERUM Normal 0.55-1.02 [facility] Comment on above: Result Comment: This specimen has been REJECTED due to Laboratory criteria: Hemolyzed. ACCOUNTS RECEIVABLE EXECUTIVE has been notified of need of recollection. 12/02/23 07 Curt L White Performed By: #### L 100.0100, L500.4050 #### [facility] [address] [place], [address] EST GFR Normal >60 [facility] Comment on above: Result Comment: This specimen has been REJECTED due to Laboratory criteria: Hemolyzed. ACCOUNTS RECEIVABLE EXECUTIVE has been notified of need of recollection. 12/02/23708 Curt L White Performed By: #### L 100.0100, L500.4050 #### [facility] [address] [place], [address] EST GFR - AA Normal >60 [facility] Comment on above: Result Comment: This specimen has been REJECTED due to Laboratory criteria: Hemolyzed. ACCOUNTS RECEIVABLE EXECUTIVE has been notified of need of recollection. 12/02/23708 Curt L White Performed By: #### L 100.0100, L500.4050 #### [facility] [address] [place], [address] GAP Normal 5-15 [facility] Comment on above: Result Comment: This specimen has been REJECTED due to Laboratory criteria: Hemolyzed. ACCOUNTS RECEIVABLE EXECUTIVE has been notified of need of recollection. 12/02/23708 Curt L White Performed By: #### L 100.0100, L500.4050 #### [facility] [address] [place], [address] GLU Normal 74-106 [facility] Comment on above: Result Comment: This specimen has been REJECTED due to Laboratory criteria: Hemolyzed. ACCOUNTS RECEIVABLE EXECUTIVE has been notified of need of recollection. 12/02/23708 Curt L White Performed By: #### L 100.0100, L500.4050 #### [facility] [address] [place], [address] Potassium Normal 3.5-5.1 [facility] Comment on above: Result Comment: This specimen has been REJECTED due to Laboratory criteria: Hemolyzed. ACCOUNTS RECEIVABLE EXECUTIVE has been notified of need of recollection. 12/02/23 07 Curt L White Performed By: #### L 100.0100, L500.4050 #### [facility] [address] [place], [address] T BILI Normal 0.20-1.00 [facility] Comment on above: Result Comment: This specimen has been REJECTED due to Laboratory criteria: Hemolyzed. ACCOUNTS RECEIVABLE EXECUTIVE has been notified of need of recollection. 12/02/23708 Curt L White Performed By: #### L 100.0100, L500.4050 #### [facility] [address] [place], [address] T PROT Normal 6.4-8.2 [facility] Comment on above: Result Comment: This specimen has been REJECTED due to Laboratory criteria: Hemolyzed. ACCOUNTS RECEIVABLE EXECUTIVE has been notified of need of recollection. 12/02/23708 Curt L White Performed By: #### L 100.0100, L500.4050 #### [facility] [address] [place], [address] Comprehensive Metabolic Profil Normal 136-145 [facility] Comment on above: Result Comment: This specimen has been REJECTED due to Laboratory criteria: Hemolyzed. ACCOUNTS RECEIVABLE EXECUTIVE has been notified of need of recollection. 12/02/23708 Curt L White Performed By: #### L 100.0100, L500.4050 #### [facility] [address] [place], [address] Gram Stainon 12-02-2023 GS Acceptable Specimen? Yes (<25 Epithelial cells per/lpf) Gram Stain 1+ Yeast Like Organisms 3+ White Blood Cells 2+ Gram positive cocci 2+ Gram positive rods Rare Epithelial cells Normal [facility] Comment on above: Performed By: #### L 500.2500, L100.0100, L501.5425, L503.6620 #### [facility] [address] [place], [address] 12 Lead EKGon 12-01-2023 12 Lead EKG [facility] Cardiovascular Services [address] [place] [address] 12 Lead EKG 12/01/23 1126 MR#: [id number] Acct: [id number] Name: ALTA BAKER Rep #: [id number] : 1950 73 From: Brayan Link MD Attending Dr: Dr. Luna Bustamante MD Status: DI S IN Ordering Dr: Kavin Rayo DO Date: 12/01/23 Location: [facility] Sex: F C Admitted: 12/01/23 Test Reason : SOB Blood Pressure : / mmHG Vent. Rate : 099 BPM Atrial Rate : 000 BPM P-R Int : 000 ms QRS Dur : 086 ms QT Int : 326 ms P-R-T Axes : 000 057 059 degrees QTc Int : 418 ms Atrial fibrillation Abnormal ECG Confirmed by Brayan Link ([id number]), acquisition editor KRISSY MORALES ([id number]) on 12/06/2023 10:20:42 AM Referred By: Kavin Rayo Confirmed By:Brayan Link 12/06/23 1020 Date Brayan Link MD CC: Dr. Davis Irene DO; Dr. Luna Bustamante MD; Dr. Kavin Rayo DO Signed Normal [facility] Alkaline Phosphataseon 11-30 ALK P 73 U/L Normal 45-117 [facility] Comment on above: Performed By: #### M 300.4508, M300.4600 #### [facility] Laboratory [address] [place], [address] BNP,B-Type NATRIURETIC PEPTI Demario 12-01-2023 Natriuretic peptide B (Bld) [Mass/Vol] 312.3 pg/mL High 0-100 [facility] Comment on above: Performed By: #### M 300.4500, M300.4600 #### [facility] [address] [place], [address] Basic Metabolic Profile (BMP )on 12-01-2023 BUN/CRE 19.7 RATIO Normal 10-20 [facility] Comment on above: Order Comment: 1 Y Performed By: #### L 500.2500, L100.0100, L501.5425, L503.6620 #### [facility] [address] [place], [address] CA,Total 9.9 mg/dL Normal 8.5-10.1 [facility] Comment on above: Order Comment: 1 Y Performed By: #### L 500.2500, L100.0100, L501.5425, L503.6620 #### [facility] [address] [place], [address] Chloride [Moles/Vol] 95 mmol/L Low 98-107 [facility] Comment on above: Order Comment: 1 Y Performed By: #### L 500.2500, L100.0100, L501.5425, L503.6620 #### [facility] [address] [place], [address] CO2 [Moles/Vol] 39.0 mmol/L High 21.0-32.0 [facility] Comment on above: Order Comment: 1 Y Performed By: #### L 500.2500, L100.0100, L501.5425, L503.6620 #### [facility] [address] [place], [address] Creatinine [Mass/Vol] 0.71 mg/dL Normal 0.55-1.02 [facility] Comment on above: Order Comment: 1 Y Result Comment: The validity of the calculated GFR GFRAA in patients over 70 years has not been determined. Clinical correlation is essential. Performed By: #### L 500.2500, L100.0100, L501.5425, L503.6620 #### [facility] [address] [place], [address] ECRCL 74.72 ml/min Normal [facility] Comment on above: Order Comment: 1 Y Performed By: #### L 500.2500, L100.0100, L501.5425, L503.6620 #### [facility] [address] [place], [address] EST GFR - AA 104 mL/min Normal >60 [facility] Comment on above: Order Comment: 1 Y Result Comment: Afri can Swazi GFR Calc Performed By: #### L 500.2500, L100.0100, L501.5425, L503.6620 #### [facility] Laboratory [address] [place], [address] GAP 5 Normal 5-15 [facility] Comment on above: Order Comment: 1 Y Performed By: #### L 500.2500, L100.0100, L501.5425, L503.6620 #### [facility] Laboratory [address] [place], [address] GFR/1.73 sq M.predicted among non-blacks MDRD (S/P/Bld) [Vol rate/Area] 86 mL/min/{1.73_m2} Normal >60 [facility] Comment on above: Order Comment: 1 Y Result Comment: Non- GFR Calc Performed By: #### L 500.2500, L100.0100, L501.5425, L503.6620 #### [facility] Laboratory [address] [place], [address] Glucose [Mass/Vol] 132 mg/dL High 74-106 [facility] Comment on above: Order Comment: 1 Y Result Comment: Fast ing Glucose result greater than or equal to 126 mg/dL suggests DIABETES MELLITUS per A.D.A. criteria. Performed By: #### L 500.2500, L100.0100, L501.5425, L503.6620 #### [facility] Laboratory [address] [place], [address] Potassium [Moles/Vol] 3.9 mmol/L Normal 3.5-5.1 [facility] Comment on above: Order Comment: 1 Y Performed By: #### L 500.2500, L100.0100, L501.5425, L503.6620 #### [facility] Laboratory [address] [place], [address] Sodium [Moles/Vol] 139 mmol/L Normal 136-145 [facility] Comment on above: Order Comment: 1 Y Performed By: #### L 500.2500, L100.0100, L501.5425, L503.6620 #### [facility] Laboratory [address] [place], [address] Urea nitrogen [Mass/Vol] 14 mg/dL Normal 7-18 [facility] Comment on above: Order Comment: 1 Y Performed By: #### L 500.2500, L100.0100, L501.5425, L503.6620 #### [facility] Laboratory [address] [place], [address] Chest PA and Lateralon 11-30 Chest PA and Lateral [facility] Imaging Services [address] [place] [address] Chest PA and Lateral MR#: [id number] Acct: [id number] Name: ALTA BAKER Rep #: [id number] : 1950 F 73 From: Aris torrez MD PCP: Dr. Davis Irene DO Status: REG ER Study: Chest PA and Lateral Date of Exam: 12/01/23 Exam# [id number] Ordering Dr: Kavin Rayo DO [id number] STUDY: X-RAY CHEST REASON FOR EXAM: Female, [...] Signed: Aris Dubon MD at 12:12 EDT Reading Location ID and State: [address] [place] [address] , Service support , CC: Dr. Davis Irene DO; Dr. Kavin Rayo DO [place] Worker: Signed Normal [facility] Emergency Department Summary on 12-01-2023 Emergency Department Summary [facility] Medical Records Department [address] [place] [address] Emergency Department Summary 12/01/23 MR#: [id number] Acct: [id number] Name: ALTA BAKER Rep #: [id number] : 1950 73 From: Kavin Rayo DO [...] compliant with her anticoagulation not missing doses. [facility] Medical History Asthma Depression Atrial fibrillation [...] @ 11:2 (more content not included)... Normal [facility] H AND P Exam - Hospitaliston 12-01-2023 H&P Exam - Hospitalist [facility] Medical Records Department [address] [place] [address] H P Exam - Hospitalist 12/01/23 1252 MR#: [id number] Acct: [id number] Name: ALTA BAKER Rep #: [id number] : 1950 73 From: Luna Bustamante MD PCP: Dr. Davis Irene, DO Status:ADM IN [facility] - General General Date of Admission: [...] in the ED were BP of 151/91, AK of 89, RR of 22 and temp [...] IV vancomycin and zosyn in the ED. [facility] Medical History (Updated 12/01/23 @ 14:44 by [...] focal w (more content not included)... Normal [facility] L501.4020on 12-01-2023 TROPONIN-I HS 12 pg/mL Normal 3.0-54.0 [facility] Comment on above: Result Comment: Plea se Note: New Test Units and Gender Specific Reference Ranges. For more information see Policy Stat Procedure [place] High Sensitivity Troponin (TNIH) and attachments. Performed By: #### L 100.0100, L500.4050 #### [facility] Laboratory [address] [place], [place], [address] L501.5425on 12-01-2023 TROPONIN-I HS 11 pg/mL Normal 3.0-54.0 [facility] Comment on above: Order Comment: 1Y Result Comment: Plea se Note: New Test Units and Gender Specific Reference Ranges. For more information see Policy Stat Procedure [place] High Sensitivity Troponin (TNIH) and attachments. Performed By: #### M 300.4500, M300.4600 #### [facility] Laboratory [address] [place], [address] Lactic Acidon 12-01-2023 Lactate [Moles/Vol] 1.6 mmol/L Normal 0.4-1.9 [facility] Comment on above: Order Comment: Y Performed By: #### L 100.0100, L500.4050 #### [facility] [address] [place], [address] Legionella Antigen Urineon 0 12-01-2023 LEGU URINE, CLEAN CATCH L pneumo Ag Ur Ql Negative Presumptive negative for Legionella pneumophila serogroup 1 antigen in urine, suggesting no recent or current infection. Legionella Ag, Urine Negative (See interpretation below) [facility] Comment on above: Performed By: #### M 100.638 #### [facility] Laboratory [address] [place], [address] M100.678on 12-01-2023 M100.678 Copy of report sent to Infection Control Printer [id number] 12/01/23 1257 MLREY. SARS-CoV-2 (COVID 19) A Positive A INFLUENZA A Negative INFLUENZA B Negative RSV PCR Negative [facility] Comment on above: Performed By: #### M 300.4500, M300.4600 #### [facility] [address] [place], [address] Strep pneumoniae Antig(UR,CS F)on 12-01-2023 STPAG URINE, CLEAN CATCH Strep pneumoniae Antig(UR,CSF) [] Negative Urine Presumptive negative for pneumococcal pneumonia, suggesting no current or recent pneumococcal infection. Infection due to S pneumoniae cannot be ruled out since the antigen present in the sample may be below the detection limit of the test. Strep pneumo Test Negative URINE (See interpretation below) [facility] Comment on above: Performed By: #### M 100.638 #### [facility] Laboratory [address] [place], [address] Urinalysis, Completeon 11-30 AMORPHOUS 1+ [facility] Comment on above: Order Comment: COLLE CTOR TO SPECIFY Performed By: #### L 400.0001 #### [facility] Laboratory [address] [place], [address] RBC 0-5 SEEN Normal 0-5 [facility] Comment on above: Order Comment: GRIFFIN CTOR TO SPECIFY Performed By: #### L 400.0001 #### [facility] Laboratory [address] [place], [address] WBC 0-5 SEEN Normal 0-5 [facility] Comment on above: Order Comment: GRIFFIN CTOR TO SPECIFY Performed By: #### L 400.0001 #### [facility] [address] [place], [address] BACTERIA 3+ /hpf Normal None Seen [facility] Comment on above: Order Comment: GRIFFIN CTOR TO SPECIFY Performed By: #### L 400.0001 #### [facility] [address] [place], [address] EPI,SQUAMOUS 0-5 SEEN Normal 5-10 [facility] Comment on above: Order Comment: GRIFFIN CTOR TO SPECIFY Performed By: #### L 400.0001 #### [facility] [address] [place], [address] Mucus Ql (Urine sed) 0 SEEN Normal [facility] Comment on above: Order Comment: GRIFFIN CTOR TO SPECIFY Performed By: #### L 400.0001 #### [facility] [address] [place], [address] ECG 12 lead - CLINIC PERFORM EDon 08-11-2023 [facility] DBT Breast - bilateral scree ningon 08-02-2023 No mammographic evid ence of malignancy. ASSESSMENT: Category 1 Negative RECOMMENDATION: Routine screening mammogram in 1 year. Bilateral CANCER RISK ASSESSMENT: This risk assessment is based on patient provided information collected in a risk survey taken at the time of this examination. LIFETIME BREAST CANCER RISK: Lucia: 6.2% - If greater than or equal [...] Electronically Signed Date/Time: 08/02/2023 10:33 AM EDT [facility] Patient Name: ALTA MOYA : 1950 Exam Date/Time: 08/02/2023 10:21 Procedure: BI MAMMOGRAM SCREENING TOMOSYNTHESIS BILATERAL Ordering Provider: IBARRA EUGENE Reason For Exam: screen Image views: 2D Bilateral CC and MLO views were acquired. 3D Bilateral CC and MLO views were acquired. Images were reviewed with CAD. Markings on images: BB's = Nipples; skin lesions [place] = Palpable Line = Scar COMPARISON: 2021; 2018 TISSUE DENSITY: BIRADS B - There are scattered fibroglandular densities. FINDINGS: No suspicious masses, architectural distortions or suspiciously clustered microcalcifications are identified. There are no significant changes when compared with prior studies. [facility] Petra García MD - 08/02/2023 Patient Name: ALTA BAKER : 1950 Exam Date/Time: 08/02/2023 10:21 Procedure: BI MAMMOGRAM SCREENING TOMOSYNTHESIS BILATERAL Ordering Provider: IBARRA EUGENE Reason For Exam: screen Image views: 2D Bilateral CC and MLO views were acquired. 3D Bilateral CC and MLO views were acquired. Images were reviewed with CAD. Markings on images: BB's = Nipples; skin lesions [place] = Palpable Line = Scar COMPARISON: 2021; [...] of this examination. LIFETIME BREAST CANCER RISK: Lucia: 6.2% - If greater than or equal [...] Electronically Signed Date/Time: 08/02/2023 10:33 AM EDT [facility] Study observation (narrative) [facility] DBT Breast - bilateral scree ningOrdered By: Petra García on 08-02-2023 [facility] Work Phone: Digoxin levelon 07-22-2022 Digoxin [Mass/Vol] 1.1 ng/mL 0.8 - 2.0 ng/mL [facility] Interpretation and review of laboratory results Normal [facility] Absolute lymphocyte counton 01-22-2022 Lymphocytes Auto (Unsp spec) [#/Vol] 2.00 10*3/uL 0.83-4.51 [facility] Work Phone: Basophil percentageon 2021 Basophils/100 WBC (Bld) 0.3 % 0-1 [facility] Work Phone: Chloride [Moles/Vol] 98 mmol/L 98-107 [facility] Work Phone: Eosinophils/100 WBC (Bld) 0.0 % 0-5 [facility] Work Phone: Glucose [Mass/Vol] 120 mg/dL 74-106 [facility] Work Phone: Comment on above: Fasting Glucose resu lt from 100 to 125 mg/dL suggests IMPAIRED HOMEOSTASIS per A.D.A. criteria. Neutrophils (Bld) [#/Vol] 12.6 10*3/uL 2.0-7.7 [facility] Work Phone: Neutrophils/100 WBC (Bld) 62.2 % 47-70 [facility] Work Phone: [phone] Potassium [Moles/Vol] 3.6 mmol/L 3.5-5.1 [facility] Work Phone: Sodium [Moles/Vol] 141 mmol/L 136-[facility] Work Phone: WBC (Bld) [#/Vol] 20.3 10*3/uL 4.4-11.0 [facility] Work Phone: Blood erythrocytes count (nu mber/volume)on 01-22-2022 RBC (Bld) [#/Vol] 5.21 10*6/uL 4.2-5.4 [facility] Work Phone: [phone] Blood hemoglobin measurement (mass/volume)on 01-22-2022 Hemoglobin (Bld) [Mass/Vol] 14.4 g/dL 12.0-15.0 [facility] Work Phone: Blood lymphocytes/100 leukoc yteson 01-22-2022 Lymphocytes/100 WBC (Bld) 9.9 % 19-41 [facility] Work Phone: Blood manual differential co mment interpretation (narrative result)on 01-22-2022 Manual differential comment Willis (Bld) [Interp] SCANNED [facility] Work Phone: Blood monocytes/100 leukocyt eson 01-22-2022 Monocytes/100 WBC (Bld) 25.5 % 0-10 [facility] [facility] Work Phone: Blood platelet mean volumeon 01-22-2022 Platelet mean volume (Bld) [Entitic vol] 12.6 fL 6.2-12.0 [facility] Work Phone: Determination of erythrocyte mean corpuscular volume (MCV)on 01-22-2022 MCV (RBC) [Entitic vol] 88.7 fL 81-99 [facility] Work Phone: Glucose Glucometer (BldC) [M ass/Vol]on 01-22-2022 Glucose [Mass/Vol] 221 mg/dL 74-106 [facility] Work Phone: Comment on above: MANAGEMENT OF PATIEN T CARE PER NURSING PROTOCOL Hematocrit Auto (Bld) [Volum e fraction]on 01-22-2022 Hematocrit (Bld) [Volume fraction] 46.2 % 37-47 [facility] Work Phone: Laboratory - Chemistry and C hemistry - challengeon 01-22-2022 CO2 [Moles/Vol] 35.0 mmol/L 21.0-32.0 [facility] Work Phone: Urea nitrogen/Creatinine [Mass ratio] 32.3 mg/mg 10-20 [facility] Work Phone: Laboratory - Hematology and Cell countson 01-22-2022 Erythrocyte distribution width (RBC) [Entitic vol] 47.0 fL 35.1-43.9 [facility] Work Phone: Erythrocyte distribution width (RBC) [Ratio] 14.5 % 11.6-14.6 [facility] Work Phone: Immature granulocytes/100 WBC (Bld) 2.100 % 0.0-0.9 [facility] Work Phone: Comment on above: IG% - Immature Granu locytes (promyelocytes, myelocytes and metamyelocytes) > 1% indicates that a LEFT SHIFT is Present. MCH (RBC) [Entitic mass] 27.6 pg 27.0-32.0 [facility] Work Phone: Nucleated RBC/100 WBC (Bld) [Ratio] 0 % 0-5 [facility] Work Phone: MCHC Auto (RBC) [Mass/Vol]on 01-22-2022 MCHC (RBC) [Mass/Vol] 31.2 g/dL 32-36 [facility] Work Phone: No Panel Informationon 01-22 Estimated Creatinine Clearance Calc 110.28 ml/min [facility] Work Phone: Estimated GFR (MDRD) Amer 83 mL/min >60 [facility] Work Phone: Comment on above: GFR Calc Estimated GFR (MDRD) Non-Af Amer 69 mL/min >60 [facility] Work Phone: Comment on above: Non- GFR Calc Platelets bldon 01-22-2022 Platelets (Bld) [#/Vol] 152 10*3/uL 150-450 [facility] Work Phone: Review by pathologiston 01-13 Pathologist review Willis (Unsp spec) [Interp] Reviewed [facility] Work Phone: Comment on above: Previous reported re sult: Cindi tam Edited by: VICK on 01/22/22:1540Leukocytosis. Clinical correlation necessary.Mehul Robins M.D. 01/22/22 AMENDED REPORT 01/22/22 1540 PATH REV previously reported as: Cindi tam Serum or plasma calcium betzaida urement (mass/volume)on 01-22-2022 Calcium [Mass/Vol] 9.2 mg/dL 8.5-10.1 [facility] Work Phone: Serum or plasma creatinine m easurement (mass/volume)on 01-22-2022 Creatinine [Mass/Vol] 0.87 mg/dL 0.55-1.02 [facility] Work Phone: Comment on above: The validity of the calculated GFR & GFRAA in patients over 70 years has not been determined. Clinical correlation is essential. Serum or plasma urea nitroge n measurement (mass/volume)on 01-22-2022 Urea nitrogen [Mass/Vol] 28 mg/dL 7-18 [facility] Work Phone: Thin prep Papanicolaou smear with manual screeningon 01-22-2022 Thin prep Papanicolaou smear with manual screening 8 5-15 [facility] Work Phone: Basophil percentageon 2021 Basophil percentage 3.2 mg/dL 2.5-4.9 [facility] Work Phone: Laboratory - Chemistry and C hemistry - challengeon 01-19-2022 Magnesium [Mass/Vol] 2.5 mg/dL 1.6-2.6 [facility] Work Phone: No Panel Informationon 01-19 Thyroid Stimulating Hormone (TSH) 0.74 uIU/mL 0.358-3.74 [facility] Work Phone: Absolute lymphocyte counton 01-18-2022 Lymphocytes Auto (Unsp spec) [#/Vol] 1.37 10*3/uL 0.83-4.51 [facility] Work Phone: Assessment of wrist artery p atency prior to arterial punctureon 01-18-2022 Arterial patency Wrist artery --pre arterial puncture Positive [facility] Work Phone: Base excesson 01-18-2022 Base excess Calc (BldV) [Moles/Vol] 5 mmol/L -2-2 [facility] Work Phone: Basophil percentageon 2021 Basophil percentage 31.1 mmol/L 22-26 [facility] Work Phone: Basophils/100 WBC (Bld) 87 % 95-99 [facility] Work Phone: Basophils/100 WBC (Bld) 0.3 % 0-1 [facility] Work Phone: Bilirubin [Mass/Vol] 1.10 mg/dL 0.20-1.00 [facility] Work Phone: Comment on above: For patients on eltr ombopag therapy, use of Dimension [place] TBIL is not recommended. Chloride [Moles/Vol] 100 mmol/L 98-107 [facility] Work Phone: Eosinophils/100 WBC (Bld) 0.3 % 0-5 [facility] Work Phone: Glucose [Mass/Vol] 172 mg/dL 74-106 [facility] Work Phone: Comment on above: Fasting Glucose resu lt greater than or equal to 126 mg/dL suggests DIABETES MELLITUS per A.D.A. criteria. Lactate [Moles/Vol] 1.5 mmol/L 0.4-2.0 [facility] Work Phone: Neutrophils (Bld) [#/Vol] 9.6 10*3/uL 2.0-7.7 [facility] Work Phone: Neutrophils/100 WBC (Bld) 67.6 % 47-70 [facility] Work Phone: Potassium [Moles/Vol] 4.3 mmol/L 3.5-5.1 [facility] Work Phone: Protein [Mass/Vol] 8.4 g/dL 6.4-8.2 [facility] Work Phone: Sodium [Moles/Vol] 140 mmol/L 136-145 [facility] Work Phone: [phone] WBC (Bld) [#/Vol] 14.1 10*3/uL 4.4-11.0 [facility] Work Phone: Blood erythrocytes count (nu mber/volume)on 01-18-2022 RBC (Bld) [#/Vol] 5.15 10*6/uL 4.2-5.4 [facility] Work Phone: Blood hemoglobin measurement (mass/volume)on 01-18-2022 Hemoglobin (Bld) [Mass/Vol] 14.3 g/dL 12.0-15.0 [facility] Work Phone: Blood lymphocytes/100 leukoc yteson 01-18-2022 Lymphocytes/100 WBC (Bld) 9.7 % 19-41 [facility] Work Phone: Blood manual differential co mment interpretation (narrative result)on 01-18-2022 Manual differential comment Willis (Bld) [Interp] SCANNED [facility] Work Phone: Blood monocytes/100 leukocyt eson 01-18-2022 Monocytes/100 WBC (Bld) 21.4 % 0-10 [facility] Work Phone: Blood platelet mean volumeon 01-18-2022 Platelet mean volume (Bld) [Entitic vol] 12.6 fL 6.2-12.0 [facility] Work Phone: CO2 (BldA) [Partial pressure ]on 01-18-2022 CO2 (Bld) [Partial pressure] 58.6 mm[Hg] 35-45 [facility] Work Phone: Determination of erythrocyte mean corpuscular volume (MCV)on 01-18-2022 MCV (RBC) [Entitic vol] 87.8 fL 81-99 [facility] Work Phone: Hematocrit Auto (Bld) [Volum e fraction]on 01-18-2022 Hematocrit (Bld) [Volume fraction] 45.2 % 37-47 [facility] Work Phone: Laboratory - Chemistry and C hemistry - challengeon 01-18-2022 ALP [Catalytic activity/Vol] 88 U/L 45-117 [facility] Work Phone: ALT [Catalytic activity/Vol] 23 U/L 13-56 [facility] Work Phone: CO2 [Moles/Vol] 31.0 mmol/L 21.0-32.0 [facility] Work Phone: Globulin (S) [Mass/Vol] 4.1 g/dL 2.2-4.2 [facility] Work Phone: Urea nitrogen/Creatinine [Mass ratio] 21.3 mg/mg 10-20 [facility] Work Phone: Laboratory - Hematology and Cell countson 01-18-2022 Erythrocyte distribution width (RBC) [Entitic vol] 46.1 fL 35.1-43.9 [facility] Work Phone: Erythrocyte distribution width (RBC) [Ratio] 14.4 % 11.6-14.6 [facility] Work Phone: Immature granulocytes/100 WBC (Bld) 0.700 % 0.0-0.9 [facility] Work Phone: Comment on above: IG% - Immature Granu locytes (promyelocytes, myelocytes and metamyelocytes) > 1% indicates that a LEFT SHIFT is Present. MCH (RBC) [Entitic mass] 27.8 pg 27.0-32.0 [facility] Work Phone: Nucleated RBC/100 WBC (Bld) [Ratio] 0 % 0-5 [facility] Work Phone: MCHC Auto (RBC) [Mass/Vol]on 01-18-2022 MCHC (RBC) [Mass/Vol] 31.6 g/dL 32-36 [facility] Work Phone: No Panel Informationon 01-18 Blood Gas Liter Flow 3.0 /min [facility] Work Phone: Blood Gas Sample Site R Radial [facility] Work Phone: Blood Gas Specimen Type ART [facility] Work Phone: Blood Gas Total CO2 33 mmol/L [facility] Work Phone: Oxygen Delivery Device Cannula [facility] Work Phone: Estimated Creatinine Clearance Calc 98.44 ml/min [facility] Work Phone: Estimated GFR (MDRD) Amer 71 mL/min >60 [facility] Work Phone: Comment on above: GFR Calc Estimated GFR (MDRD) Non-Af Amer 59 mL/min >60 [facility] Work Phone: Comment on above: Non- GFR Calc Oxygen (BldA) [Partial press ure]on 01-18-2022 Oxygen (Bld) [Partial pressure] 59 mmHG 75-100 [facility] Work Phone: Platelets bldon 01-18-2022 Platelets (Bld) [#/Vol] 154 10*3/uL 150-450 [facility] Work Phone: [phone] Review by pathologiston 11- Pathologist review Willis (Unsp spec) [Interp] May anel [facility] Work Phone: Serum or plasma albumin betzaida urement (mass/volume)on 01-18-2022 Albumin [Mass/Vol] 4.3 g/dL 3.2-5.0 [facility] Work Phone: Serum or plasma albumin/glob ulin mass ratioon 01-18-2022 Albumin/Globulin [Mass ratio] 1.0 {ratio} 0.9-2.4 [facility] Work Phone: Serum or plasma calcium betzaida urement (mass/volume)on 01-18-2022 Calcium [Mass/Vol] 9.9 mg/dL 8.5-10.1 [facility] Work Phone: Serum or plasma creatinine m easurement (mass/volume)on 01-18-2022 Creatinine [Mass/Vol] 0.99 mg/dL 0.55-1.02 [facility] Work Phone: Comment on above: The validity of the calculated GFR & GFRAA in patients over 70 years has not been determined. Clinical correlation is essential. Serum or plasma urea nitroge n measurement (mass/volume)on 01-18-2022 Urea nitrogen [Mass/Vol] 21 mg/dL 7-18 [facility] Work Phone: Thin prep Papanicolaou smear with manual screeningon 01-18-2022 Thin prep Papanicolaou smear with manual screening 12 U/L 15-37 [facility] Work Phone: Thin prep Papanicolaou smear with manual screening 9 5-15 [facility] Work Phone: Whole blood hemoglobin A1c/t otal hemoglobin ratio (mass fraction)on 01-18-2022 HbA1c (Bld) [Mass fraction] 5.9 % 3.8-5.6 [facility] Work Phone: Comment on above: Normal < 5.7 % Predi abetic 5.7 - 6.4 % Diabetic >or= 6.5 % Please note range changes. pH measurementon 01-18-2022 pH (Unsp spec) 7.33 [pH] 7.35-7.45 [facility] Work Phone: Prothrombin Timeon 2 INR 1.8 High 0.9-1.1 [facility] Comment on above: Result Comment: Hong [...] #### L MILES ESPARZA, MD MANISHIFF #### [facility] [address] [place] [address] PT Coag (PPP) [Time] 18.8 s High 9.0-12.0 [facility] Comment on above: Result Comment: . Performed By: #### L MILES ESPARZA, MANISH MDIFF #### [facility] [address] [place] [address] Protime-INRon 12-01-2021 INR Coag (Bld) [Relative time] 1.8 {INR} High [facility] Comment on above: Recommended Anticoag ulant Therapy: [...] Interpretation and review of laboratory results Abnormal [facility] PT Coag (PPP) [Time] 18.8 s High 9 - 12 s [facility] Comment on above: . Test Performed by [facility], [address] , [place] [id number] [place] [address] LAB [facility] Prothrombin Timeon 2 INR 4.6 Critically high 0.9-1.1 [facility] Comment on above: Result Comment: dipak fied by repeat analysis Recommended Anticoagulant Therapy: [...] Infarction Performed By: #### P T #### [facility] [address] [place] [address] PT Coag (PPP) [Time] 45.7 s High 9.0-12.0 [facility] Comment on above: Result Comment: . Performed By: #### P T #### [facility] [address] [place] [address] Echo 2D Doppler Coloron 08-0 TRANSTHORACIC ECHOCARDIOGRAM PATIENT: Alta Baker STUDY DATE: 10/13/2021 : 1950 AGE: 71 HT/WT: 149.9 cm (59 119.3 kg in) (262.4 lb) GENDER: F BP: 130 / 82 LOCATION: [facility] PATIENT Outpatient [facility] STATUS: *ORDERING PHYSICIAN: * Benita Moon *READING PHYSICIAN: * Miranda Morris, *SHOVEL LOADER OPERATOR: * MD Shayna Rice INDICATIONS: Eval mitral [...] 12 - 6 (more content not included)... [facility] Miranda Morris MD - 10/13/2021 TRANSTHORACIC ECHOCARDIOGRAM PATIENT: Alta Baker STUDY DATE: 10/13/2021 : 1950 AGE: 71 HT/WT: 149.9 cm (59 119.3 kg in) (262.4 lb) GENDER: F BP: 130 / 82 LOCATION: [facility] PATIENT Outpatient [facility] STATUS: *ORDERING PHYSICIAN: * Benita Moon *READING PHYSICIAN: * Miranda Morris, *SHOVEL LOADER OPERATOR: * MD Shayna Rice INDICATIONS: Eval mitral [...] m/sec --------- Mi (more content not included)... [facility] Work Phone: Echo 2D Doppler ColorOrdered By: Miranda Morris on 10-13-2021 [facility] Work Phone: Echo Complete w/wo Contrasto n 10-13-2021 Echo Complete w/wo Contrast Patient Name: ALTA BAKER Ultrasound ACCESSION EXAM DATE/TIME PROCEDURE ORDERING PROVIDER [id number] 10/13/2021 15:56 EDT Echo Complete w/wo [id number] -BENITA MOON Contrast Reason For Exam (Echo Complete w/wo Contrast) evaluate mitral stenosis if any? wanting to switch to DOAC ((2017 mild mitral stenosis) Report TRANSTHORACIC ECHOCARDIOGRAM PATIENT: Alta Baker STUDY DATE: 10/13/2021 [facility] [id number] : 1950 AGE: 71 HT/WT: 149.9 cm (59 119.3 kg in) (262.4 lb) GENDER: F BP: 130 / 82 LOCATION: [facility] Outpatient [facility] STATUS: *ORDERING PHYSICIAN: * Benita Moon *READING PHYSICIAN: * Miranda Morris, *SHOVEL LOADER OPERATOR: * MD Shayna Rice INDICATIONS: Eval mitral [...] LVOT Imer (more content not included)... Normal [facility] Digoxinon 09-29-2021 Digoxin [Mass/Vol] 0.94 ng/mL Normal 0.80-2.00 [facility] Comment on above: Performed By: #### L SHELL2, JALIL3, HERNÁN HAMMOND #### [facility] [address] [place] [address] Digoxin Levelon 09-29-2021 Digoxin Lvl 0.94 ng/mL 0.8 - 2 ng/mL [facility] Test Performed by [facility], [address] LAB [facility] Prothrombin Timeon 2 INR 2.5 High 0.9-1.1 [facility] Comment on above: Result Comment: Hong [...] Myocardial Infarction Performed By: #### L IPD2, CMP3, HERNÁN HAMMOND #### [facility] [address] [place] [address] PT Coag (PPP) [Time] 25.7 s High 9.0-12.0 [facility] Comment on above: Result Comment: . Performed By: #### L IPD2, CMP3, HEMDF, MDIFF #### [facility] [address] [place] [address] Protime-INRon 09-29-2021 INR Coag (Bld) [Relative time] 2.5 {INR} High [facility] Comment on above: Recommended Anticoag ulant Therapy: [...] Interpretation and review of laboratory results Abnormal [facility] PT Coag (PPP) [Time] 25.7 s High 9 - 12 s [facility] Comment on above: . Test Performed by [facility], [address] , [place], [place] [id number] [place] [address] LAB [facility] LUNA DIGITAL DIAGNOSTIC W OR WO CAD RIGHTon 07-24-2021 Patient Name: ALTA MOYA Mammography ACCESSION EXAM DATE/TIME PROCEDURE ORDERING PROVIDER [id number] 07/24/2021 13:40 EDT MG Mammogram Digital LAURA YANG Diagnostic Right CPT code 61169 Reason For Exam (MG Mammogram Digital Diagnostic [...] images: BB's = Nipples; skin lesions [place] = Palpable Line = Scar Report Dictated on ASSESSMENT: Post procedure mammogram for marker placement US BX BREAST 1ST LESION IMAGE RT: RIGHT BREAST - JULY 24, 2021 - PATHOLOGY RESULTS: PENDING 2D digital mammography imaging was performed and reviewed with CAD. --- Final --- Signed Date and Time: 07/24/2021 3:27 pm Signed by: MD VELÁZQUEZ LAUREN B [facility] Alize Velázquez MD - 07/24/2021 Patient Name: ALTA BAKER Mammography ACCESSION EXAM DATE/TIME PROCEDURE ORDERING PROVIDER [id number] 07/24/2021 13:40 EDT MG Mammogram Digital LAURA YANG Diagnostic Right CPT code 69175 Reason For Exam (MG Mammogram Digital Diagnostic [...] images: BB's = Nipples; skin lesions [place] = Palpable Line = Scar Report Dictated on ASSESSMENT: Post procedure mammogram for marker placement US BX BREAST 1ST LESION IMAGE RT: RIGHT BREAST - JULY 24, 2021 - PATHOLOGY RESULTS: PENDING 2D digital mammography imaging was performed and reviewed with CAD. --- Final --- Signed Date and Time: 07/24/2021 3:27 pm Signed by: MD VELÁZQUEZ LAUREN B [facility] Work Phone: [facility] Work Phone: Radiology Study observation (narrative) [facility] Work Phone: MG Mammogram Digital Diagnos tic Righton 07-24-2021 MG Mammogram Digital Diagnostic Right [facility]: [id number] Mammography ACCESSION EXAM DATE/TIME PROCEDURE ORDERING PROVIDER [id number] 07/24/2021 13:40 EDT MG Mammogram Digital LAURA YANG Diagnostic Right CPT code 05216 Reason For Exam (MG Mammogram Digital Diagnostic [...] images: BB's = Nipples; skin lesions [place] = Palpable Line = Scar Report Dictated on ASSESSMENT: Post procedure mammogram for marker placement US BX BREAST 1ST LESION IMAGE RT: RIGHT BREAST - JULY 24, 2021 - PATHOLOGY RESULTS: PENDING 2D digital mammography imaging was performed and reviewed with CAD. Final Signed Date and Time: 07/24/2021 3:27 pm Signed by: MD EBER, ALIZE Wilson Report last revised on 08/04/2021 14:38 EDT by MD VELÁZQUEZ LAUREN B [facility] Surgical Pathologyon 022 Surgical Pathology [id number] [facility] PATHOLOGY AND LABORATORY MEDICINE [address] [place] [address] Fax - FINAL SURGICAL PATHOLOGY REPORT NAME: ALTA BAKER : 1950 71 Y F BILLING NO.: [id number] LOCATION: [facility] PROCEDURE 07/24/2021 DATE: SURGEON: LAURA YANG [...] characteristics determined by the clinical laboratories of [facility]. They have not been cleared by [...] negativity on decalcified specimens. Case reviewed at [place] [address] [place] [address]. DEPARTMENT OF PATHOLOGY AND LABORATORY MEDICINE [place], [place] [address] [email or web address] Normal [facility] US BX Breast 1st Lesion Imag e RTon 07-24-2021 US BX Breast 1st Lesion Image RT Patient Name: ALTA BAKER Ultrasound ACCESSION EXAM DATE/TIME PROCEDURE ORDERING PROVIDER [id number] 07/24/2021 14:00 EDT US BX Breast 1st Lesion LAURA YANG Image RT CPT code 53556 A4648 Reason For Exam (US BX Breast [...] images: BB's = Nipples; skin lesions [place] = Palpable Line = Scar Report Dictated [...] 14:38 EDT by MD VELÁZQUEZ LAUREN B [facility] US GUIDED RIGHT BREAST BIOPS Yon 07-24-2021 [facility]: [id number] Ultrasound ACCESSION EXAM DATE/TIME PROCEDURE ORDERING PROVIDER [id number] 07/24/2021 14:00 EDT US BX Breast 1st Lesion LAURA YANG Image RT CPT code 01443 A4648 Reason For Exam (US BX Breast [...] images: BB's = Nipples; skin lesions [place] = Palpable Line = Scar Report Dictated [...] Ultrasound ACCESSION EXAM DATE/TIME PROCEDURE ORDERING PROVIDER [id number] 07/24/2021 14:00 EDT US BX Breast 1st Lesion LAURA YANG Image RT CPT code 03119 A4648 Reason For Exam (US BX Breast [...] images: BB's = Nipples; skin lesions [place] = Palpable Line = Scar Report Dictated on ASSESSMENT: Post procedure mammogram for marker placement US BX BREAST 1ST LESION IMAGE RT: RIGHT BREAST - JULY 24, 2021 - PATHOLOGY RESULTS: PENDING 2D digital mammography imaging was performed and reviewed with CAD. --- Final --- Signed Date and Time: 07/24/2021 3:27 pm Signed by: MD VELÁZQUEZ LAUREN B [facility] Work Phone: Radiology Study observation (narrative) [facility] Work Phone: US GUIDED RIGHT BREAST BIOPS YOrdered By: Alize Velázquez on 07-24-2021 [facility] Work Phone: [facility] BILATERALon 07-02-2021 Patient Name: ALTA MOYA Mammography ACCESSION EXAM DATE/TIME PROCEDURE ORDERING PROVIDER [id number] 07/02/2021 10:26 EDT MG Breast Tomosynthesis DO IBARRA EUGENE F. BI CPT code 65263 15514 Reason For Exam (MG Breast Tomosynthesis BI) [...] bilateral MG breast tomosynthesis bl performed at [facility] Radiology. December 07, 2018, right breast MG breast tomosynthesis right performed at [facility]. December 07, 2018, right breast US breast limited right performed at [facility]. November 23, 2018, bilateral MG breast tomosynthesis bl scr performed at [facility]. TISSUE DENSITY: BIRADS B - There are [...] images: BB's = Nipples; skin lesions [place] = Palpable Line = Scar 2D digital [...] 11:57 am Signed by: DO TELLEZ R[facility]HEL [facility] Gay Aranda DO - 07/02/2021 Patient Name: ALTA BAKER Mammography ACCESSION EXAM DATE/TIME PROCEDURE ORDERING PROVIDER [id number] 07/02/2021 10:26 EDT MG Breast Tomosynthesis DO IBARRA EUGENE F. BI CPT code 17257 45339 Reason For Exam (MG Breast Tomosynthesis BI) [...] bilateral MG breast tomosynthesis bl performed at [facility] Radiology. December 07, 2018, right breast MG breast tomosynthesis right performed at [facility]. December 07, 2018, right breast US breast limited right performed at [facility]. November 23, 2018, bilateral MG breast tomosynthesis bl scr performed at [facility]. TISSUE DENSITY: BIRADS B - There are [...] images: BB's = Nipples; skin lesions [place] = Palpable Line = Scar 2D digital [...] 11:57 am Signed by: DO TELLEZ R[facility]HEL [facility] Work Phone: Radiology Study observation (narrative) [facility] Work Phone: LUNA ERNST DIGITAL DIAGNOSTIC BILATERALOrdered By: Gay Tellez on 07-02-2021 [facility] Work Phone: MG Breast Tomosynthesis Diag nostic BIon 07-02-2021 MG Breast Tomosynthesis Diagnostic BI Patient Name: ALTA BAKER Mammography ACCESSION EXAM DATE/TIME PROCEDURE ORDERING PROVIDER [id number] 07/02/2021 10:26 EDT MG Breast Tomosynthesis DO IBARRA EUGENE F. BI CPT code 88525 49961 Reason For Exam (MG Breast Tomosynthesis BI) [...] bilateral MG breast tomosynthesis bl performed at [facility] Radiology. December 07, 2018, right breast MG breast tomosynthesis right performed at [facility]. December 07, 2018, right breast US breast limited right performed at [facility]. November 23, 2018, bilateral MG breast tomosynthesis bl scr performed at [facility]. TISSUE DENSITY: BIRADS B - There are [...] images: BB's = Nipples; skin lesions Open [place] = Palpable Line = Scar 2D digital [...] 11:57 am Signed by: DO TELLEZ RACHEL [facility] MG Cancer Risk Surveyon 04-2 MG Cancer Risk Survey Patient Name: ALTA COHEN Mammography ACCESSION EXAM DATE/TIME PROCEDURE ORDERING PROVIDER [id number] 07/02/2021 10:26 EDT MG Cancer Risk Survey DO IBARRA EUGENE F. Reason For Exam (MG Cancer Risk Survey) diagnostic Report Cancer Risk [...] risk follow up. Report Dictated on Workstation: [id number] Final Dictating Physician: [employer] Signed Date and Time: 09/01/2021 2:37 pm Signed by: Contributor_system, POWERSCRIBE_V2 [facility] US Breast Limited Righton US Breast Limited Right Patient Name: ALTA BAKER Ultrasound ACCESSION EXAM DATE/TIME PROCEDURE ORDERING PROVIDER [id number] 07/02/2021 11:48 EDT US Breast Limited Right DO IBARRA EUGENE ChayitoYoly CPT code 08751 Reason For Exam (US Breast Limited Right) R92.8 ABNORMAL MAMMOGRAM Report This report was read in conjunction with Breast Ernst Bl Final Signed Date and Time: 08/27/2021 3:18 pm Signed by: DE[employer]MENT [employer], SYSTEM Transcribed Date and Time: 08/27/2021 1:49 Transcribed By:OPHELIA [facility] Prothrombin Timeon 2 INR 3.0 High 0.9-1.1 [facility] Comment on above: Result Comment: Hong [...] prevent Myocardial Infarction Performed By: #### L JALIL ESPARZA3MANISH MDIFF #### [facility] [address] [place] [address] PT Coag (PPP) [Time] 30.5 s High 9.0-12.0 [facility] Comment on above: Result Comment: . Performed By: #### L SHELL2MLIES HEMDF, MDIFF #### [facility] [address] [place] [address] CBC Auto DifferentialOrdered By: Kory Ibarra on 12-30-2020 Hematocrit (Bld) [Volume fraction] 39.3 % 35.0 - 47.0 % [facility] Work Phone: Hemoglobin.gastrointes tinal spec 1 Ql (Stl) 13.1 g/dL 11.7 - 16.0 g/dL [facility] Work Phone: [phone] MCH (RBC) [Entitic mass] 27.8 pg 26.0 - 34.0 pg [facility] Work Phone: [phone] MCHC (RBC) [Mass/Vol] 33.3 % 32.0 - 36.0 % [facility] Work Phone: [phone] MCV (RBC) [Entitic vol] 83.5 fL 79.0 - 98.0 fL [facility] Work Phone: [phone] Platelet distribution width (Bld) [Ratio] 15.4 % High 11.5 - 14.5 % [facility] Work Phone: [phone] Platelet mean volume (Bld) [Entitic vol] 9.7 fL 7.4 - 10.4 fL [facility] Com Phone: [phone] Platelets (Bld) [#/Vol] 136 10*3/uL Low 140 - 440 10*3/uL [facility] Work Phone: [phone] RBC (Bld) [#/Vol] 4.71 10*6/uL 3.80 - 5.2 0 10*6/uL [facility] Work Phone: [phone] WBC (Bld) [#/Vol] 10.7 10*3/uL 3.6 - 10.7 10*3/uL [facility] Work Phone: [phone] Comp Metabolic Panelon 12-30 ALP [Catalytic activity/Vol] 79 U/L Normal 38-126 [facility] Comment on above: Performed By: #### L IPD2, CMP3, HEMDF, MDIFF #### [facility] [address] [place] [address] ALT [Catalytic activity/Vol] 33 U/L Normal 0-34 [facility] Comment on above: Result Comment: The ALT test is performed by an updated assay method. Please note that the reference intervals have been changed and are now sex specific. Performed By: #### L IPD2, CMP3, HEMDF, MDIFF #### [facility] [address] [place] [address] AST [Catalytic activity/Vol] 38 U/L Normal 15-46 [facility] Comment on above: Performed By: #### L MILES ESPARZA HEMDF, MDIFF #### [facility] [address] [place] [address] Calcium [Mass/Vol] 9.8 mg/dL Normal 8.4-10.4 [facility] Comment on above: Performed By: #### L SHELL2MILES HEMDF, MDIFF #### [facility] [address] [place] [address] Glucose [Mass/Vol] 133 mg/dL High 70-100 [facility] Comment on above: Performed By: #### L MILES ESPARZA HEMDF, MDIFF #### [facility] [address] [place] [address] Urea nitrogen [Mass/Vol] 13 mg/dL Normal 9-20 [facility] Comment on above: Performed By: #### L MILES ESPARZA HEMDF, MDIFF #### [facility] [address] [place] [address] Anion gap [Moles/Vol] 5 mmol/L Normal 3-13 [facility] Comment on above: Performed By: #### L MILES ESPARZA HEMDF, MDIFF #### [facility] [address] [place] [address] Bilirubin [Mass/Vol] 0.9 mg/dL Normal 0.2-1.3 [facility] Comment on above: Performed By: #### L SHELL2MILES HEMDF, MDIFF #### [facility] [address] [place] [address] CO2 [Moles/Vol] 32 mmol/L High 22-30 [facility] Comment on above: Performed By: #### L MILES ESPARZA HEMDF, MDIFF #### [facility] [address] [place] [address] Creatinine [Mass/Vol] 0.87 mg/dL Normal 0.52-1.25 [facility] Comment on above: Performed By: #### L SHELL2MILES HEMDF, MDIFF #### [facility] [address] [place] [address] GFR/1.73 sq M.predicted among blacks MDRD (S/P/Bld) [Vol rate/Area] 78.4 mL/min/{1.73_m2} Normal >60 [facility] Comment on above: Performed By: #### L SHELL2MILES HEMDF, MDIFF #### [facility] [address] [place] [address] GFR/1.73 sq M.predicted among non-blacks MDRD (S/P/Bld) [Vol rate/Area] 67.6 mL/min/{1.73_m2} Normal >60 [facility] Comment on above: Result Comment: KDIG [...] By: #### L SHELL2MILES HEMDF, MDIFF #### [facility] [address] [place] [address] Protein [Mass/Vol] 7.4 g/dL Normal 6.3-8.2 [facility] Comment on above: Performed By: #### L MILES ESPARZA HEMDF, MDIFF #### [facility] [address] [place] [address] Potassium [Moles/Vol] 4.4 mmol/L Normal 3.5-5.1 [facility] Comment on above: Performed By: #### L MILES ESPARZA HEMDF, MDIFF #### [facility] [address] [place] [address] Sodium [Moles/Vol] 140 mmol/L Normal 135-145 [facility] Comment on above: Performed By: #### L IPD2, CMP3, MD MANISHIFF #### [facility] [address] [place] [address] Albumin [Mass/Vol] 4.2 g/dL Normal 3.5-5.0 [facility] Comment on above: Performed By: #### L IPD2, CMP3, MD MANISHIFF #### [facility] [address] [place] [address] Chloride [Moles/Vol] 103 mmol/L Normal 98-107 [facility] Comment on above: Performed By: #### L IPD2, CMP3, MD MANISHIFF #### [facility] [address] [place] [address] Comprehensive Metabolic Pane lOrdered By: Kory Ibarra on 12-30-2020 Albumin [Mass/Vol] 4.2 g/dL 3.5 - 5.0 g/dL [facility] Work Phone: [phone] ALP (Bld) [Catalytic activity/Vol] 79 U/L 38 - 126 U/L [facility] Work Phone: [phone] ALT [Catalytic activity/Vol] 33 U/L 0 - 34 U/L [facility] Work Phone: [phone] Comment on above: The ALT test is perf ormed by an updated assay method. Please note that the reference intervals have been changed and are now sex specific. Anion gap [Moles/Vol] 5 mmol/L 3 - 13 mmol/L [facility] Work Phone: [phone] AST [Catalytic activity/Vol] 38 U/L 15 - 46 U/L [facility] Work Phone: [phone] Bilirubin [Mass/Vol] 0.9 mg/dL 0.2 - 1 .3 mg/dL [facility] Work Phone: [phone] Calcium [Mass/Vol] 9.8 mg/dL 8.4 - 10. 4 mg/dL [facility] Work Phone: [phone] Chloride [Moles/Vol] 103 mmol/L 98 - 10 7 mmol/L [facility] Work Phone: [phone] CO2 [Moles/Vol] 32 mmol/L High 22 - 30 mmol/L [facility] Work Phone: [phone] Creatinine [Mass/Vol] 0.87 mg/dL 0.52 - 1.25 mg/dL [facility] Work Phone: [phone] EGFR IF NonAfrican [place] 67.6 mL/min >60 [facility] Work Phone: [phone] Comment on above: KDIGO guidelines pro vide [...] fraction] 7.4 g/dL 6.3 - 8.2 g/dL [facility] Work Phone: [phone] GFR/1.73 sq M.predicted among blacks MDRD (S/P/Bld) [Vol rate/Area] 78.4 mL/min/{1.73_m2} >60 [facility] Work Phone: [phone] Glucose [Mass/Vol] 133 mg/dL High 70 - 100 mg/dL [facility] Work Phone: [phone] Potassium [Moles/Vol] 4.4 mmol/L 3.5 - 5.1 mmol/L [facility] Work Phone: [phone] Sodium [Moles/Vol] 140 mmol/L 135 - 145 mmol/L [facility] Work Phone: [phone] Urea nitrogen (BldV) [Mass/Vol] 13 mg/dL 9 - 20 mg/dL [facility] Work Phone: Hemogram w/ Autodiffon 12-30 Erythrocyte distribution width (RBC) [Ratio] 15.4 % High 11.5-14.5 [facility] Comment on above: Performed By: #### L IPD2, CMP3, MD MANISHIFF #### [facility] [address] [place] [address] Hematocrit (Bld) [Volume fraction] 39.3 % Normal 35.0-47.0 [facility] Comment on above: Performed By: #### L IPD2, CMP3MANISH MDIFF #### [facility] [address] [place] [address] Hemoglobin (Bld) [Mass/Vol] 13.1 g/dL Normal 11.7-16.0 [facility] Comment on above: Performed By: #### L IPD2, CMP3MANISH MDIFF #### [facility] [address] [place] [address] MCH (RBC) [Entitic mass] 27.8 pg Normal 26.0-34.0 [facility] Comment on above: Performed By: #### L IPD2, CMP3MANISH MDIFF #### [facility] [address] [place] [address] MCHC 33.3 % Normal 32.0-36.0 [facility] Comment on above: Performed By: #### L IPD2, CMP3, MD MANISHIFF #### [facility] [address] [place] [address] MCV (RBC) [Entitic vol] 83.5 fL Normal 79.0-98.0 [facility] Comment on above: Performed By: #### L IPD2, CMP3, HEMMD GWENIFF #### [facility] [address] [place] [address] Platelet mean volume (Bld) [Entitic vol] 9.7 fL Normal 7.4-10.4 [facility] Comment on above: Performed By: #### L IPD2, CMP3, HEMDF, MDIFF #### [facility] [address] [place] [address] Platelets (Bld) [#/Vol] 136 10*3/uL Low 140-440 [facility] Comment on above: Performed By: #### L IPD2, CMP3, HEMMD GWENIFF #### [facility] [address] [place] [address] RBC (Bld) [#/Vol] 4.71 10*6/uL Normal 3.80-5.20 [facility] Comment on above: Performed By: #### L IPD2, CMP3, MD MANISHIFF #### [facility] [address] [place] [address] WBC (Bld) [#/Vol] 10.7 10*3/uL Normal 3.6-10.7 [facility] Comment on above: Performed By: #### L IPD2, CMP3, MD MANISHIFF #### [facility] [address] [place] [address] Lipid Panelon 12-30-2020 Chol/HDL 4 Normal [facility] Comment on above: Result Comment: Ref Range: < 3 Low Risk for CHD 3-6 Mod Risk for CHD > 6 High Risk for CHD Performed By: #### L IPD2, CMP3, HERNÁN HAMMOND #### [facility] [address] [place] [address] Cholesterol in HDL [Mass/Vol] 31 mg/dL Low 40-60 [facility] Comment on above: Performed By: #### L IPD2, CMP3, HERNÁN HAMMOND #### [facility] [address] [place] [address] Low Density Lipoprotein 63 mg/dL Normal <100 [facility] Comment on above: Performed By: #### L IPD2, CMP3, MD MANISHIFF #### [facility] [address] [place] [address] Triglyceride [Mass/Vol] 167 mg/dL Abnormal <150 [facility] Comment on above: Performed By: #### L IPD2, CMP3, HEMMD GWENIFF #### [facility] [address] [place] [address] Cholesterol [Mass/Vol] 127 mg/dL Normal < 200 [facility] Comment on above: Performed By: #### L IPD2, CMP3, MD MANISHIFF #### [facility] [address] [address] Lipid PanelOrdered By: Herbert Ibarra on 12-30-2020 Cholesterol [Mass/Vol] 127 mg/dL <200 [facility] Work Phone: Cholesterol in HDL [Mass/Vol] 31 mg/dL Low 40 - 60 mg/dL [facility] Work Phone: Cholesterol in LDL [Mass/Vol] 63 mg/dL <100 [facility] Work Phone: Cholesterol.total/Chol esterol in HDL [Mass ratio] 4 {ratio} [facility] Work Phone: Comment on above: Ref Range: < 3 Low Risk for CHD 3-6 Mod Risk for CHD > 6 High Risk for CHD Triglyceride [Mass/Vol] 167 mg/dL Abnormal <150 [facility] Work Phone: Manual Diffon 12-30-2020 Abs Baso Cnt 0.0 10*3/uL Normal 0.0-0.2 [facility] Comment on above: Performed By: #### L IPD2, CMP3, MD MANISHIFF #### [facility] [address] [place] [address] Abs Eosin Cnt 0.0 10*3/uL Normal 0.0-0.5 [facility] Comment on above: Performed By: #### L IPD2, CMP3, MD MANISHIFF #### [facility] [address] [place] [address] Abs Lymph Cnt 2.0 10*3/uL Normal 1.1-4.5 [facility] Comment on above: Performed By: #### L IPD2, CMP3, MD MANISHIFF #### [facility] [address] [place] [address] Abs Monocyte Cnt 1.3 10*3/uL High 0.2-1.1 [facility] Comment on above: Performed By: #### L IPD2, CMP3, HEMDF, MDIFF #### [facility] [address] [place] [address] Abs Neutrophile Cnt 7.4 10*3/uL Normal 2.2-8.2 [facility] Comment on above: Performed By: #### L IPD2, CMP3, HEMDF, MDIFF #### [facility] [address] [place] [address] Bands 2 % Normal 0-3 [facility] Comment on above: Performed By: #### L IPD2, CMP3, HEMDF, MDIFF #### [facility] [address] [place] [address] Basophils 0 % Normal 0-2 [facility] Comment on above: Performed By: #### L IPD2, CMP3, HEMDF, MDIFF #### [facility] [address] [place] [address] Cells counted 100 Normal [facility] Comment on above: Performed By: #### L IPD2, CMP3, HEMDF, MDIFF #### [facility] [address] [place] [address] Eosinophils 0 % Low 1-6 [facility] Comment on above: Performed By: #### L IPD2, CMP3, HEMDF, MDIFF #### [facility] [address] [place] [address] Lymphocytes 19 % Low 20-40 [facility] Comment on above: Performed By: #### L IPD2, CMP3, HEMDF, MDIFF #### [facility] [address] [place] [address] Monocytes 12 % High 2-10 [facility] Comment on above: Performed By: #### L IPD2, CMP3, HEMDF, MDIFF #### [facility] [address] [place] [address] RBC Morphology Normal Normal [facility] Comment on above: Performed By: #### L IPD2, CMP3, HEMDF, MDIFF #### [facility] [address] [place] [address] Seg Neutrophils 67 % Normal 40-80 [facility] Comment on above: Performed By: #### L IPD2, CMP3, HEMDF, MDIFF #### [facility] [address] [place] [address] Manual DifferentialOrdered B y: Kory Fred on 12-30-2020 Absolute Baso # 0.0 10*3/uL 0.0 - 0.2 10*3/uL [facility] Work Phone: [phone] Absolute Eos # 0.0 10*3/uL 0.0 - 0.5 10*3/uL [facility] Work Phone: [phone] Absolute Lymph # 2.0 10*3/uL 1.1 - 4.5 10*3/uL [facility] Work Phone: [phone] Absolute [place] # 1.3 10*3/uL High 0.2 - 1.1 10*3/uL [facility] Work Phone: [phone] Absolute Neut # 7.4 10*3/uL 2.2 - 8.2 10*3/uL [facility] Work Phone: [phone] Bands 2 % 0 - 3 % [facility] Work Phone: [phone] Basophils/100 WBC (Bld) 0 % 0 - 2 % [facility] Work Phone: [phone] Eosinophils/100 WBC (Bld) 0 % Low 1 - 6 % [facility] Work Phone: [phone] Lymphocytes/100 WBC (Bld) 19 % Low 20 - 40 % [facility] Work Phone: [phone] Monocytes/100 WBC (Bld) 12 % High 2 - 10 % [facility] Work Phone: [phone] RBC (Bld) [#/Vol] Normal [facility] Work Phone: [phone] Seg Neutrophils 67 % 40 - 80 % [facility] Work Phone: [phone] TOTAL CELLS COUNTED 100 [facility] Work Phone: [phone] No Panel InformationOrdered By: Kory Fred on 12-30-2020 Interpretation and review of laboratory results Abnormal [facility] Work Phone: [phone] Test Performed by [facility], [address] , [place], [place] [id number] [place] [address] Work Phone: [phone] [facility] Work Phone: Interpretation and review of laboratory results Abnormal [facility] Work Phone: Test Performed by [facility], [address] , [place], [place] [address] Work Phone: [phone] [facility] Work Phone: [phone] Prothrombin Timeon INR 2.8 High 0.9-1.1 [facility] Comment on above: Result Comment: Hong [...] Infarction Performed By: #### P T #### [facility] [address] [address] PT Coag (PPP) [Time] 28.2 s High 9.0-12.0 [facility] Comment on above: Result Comment: . Performed By: #### P T #### [facility] [address] [address] Protime-INROrdered By: Ronel Ly on 12-30-2020 INR Coag (Bld) [Relative time] 2.8 {INR} High [facility] Work Phone: Comment on above: Recommended Anticoag [...] Interpretation and review of laboratory results Abnormal [facility] Work Phone: PT Coag (PPP) [Time] 28.2 s High 9.0 - 12.0 s [facility] Work Phone: Comment on above: . Test Performed by [facility], [address] [place], [place] [address] [place] [address] Work Phone: [facility] Work Phone: Prothrombin Timeon INR 3.3 High 0.9-1.1 [facility] Comment on above: Result Comment: Hong [...] Infarction Performed By: #### P T #### [facility] [address] [place] [address] PT Coag (PPP) [Time] 33.0 s High 9.0-12.0 [facility] Comment on above: Result Comment: . Performed By: #### P T #### [facility] [address] [place] [address] Protime-INROrdered By: Ronel Ly on 12-17-2020 INR Coag (Bld) [Relative time] 3.3 {INR} High [facility] Work Phone: Comment on above: Recommended Anticoag [...] Interpretation and review of laboratory results Abnormal [facility] Work Phone: [phone] PT Coag (PPP) [Time] 33 s High 9.0 - 12.0 s [facility] Work Phone: Comment on above: . Test Performed by [facility], [address] , [address] Work Phone: [facility] Work Phone: Protime-INROrdered By: Ronel Ly on 10-03-2020 INR Coag (Bld) [Relative time] 2.1 {INR} High [facility] Work Phone: Comment on above: Recommended Anticoag [...] Interpretation and review of laboratory results Abnormal [facility] Work Phone: [phone] PT Coag (PPP) [Time] 21.6 s High 9.0 - 12.0 s [facility] Work Phone: Comment on above: . Test Performed by [facility], [address] , [place], [place] [address] Work Phone: [facility] Work Phone: Protime-INROrdered By: Ronel Ly on 09-24-2020 INR Coag (Bld) [Relative time] 1.6 {INR} High [facility] Work Phone: [phone] Comment on above: Recommended Anticoag ulant Therapy: [...] Interpretation and review of laboratory results Abnormal [facility] Work Phone: [phone] PT Coag (PPP) [Time] 17 s High 9.0 - 12.0 s [facility] Work Phone: [phone] Comment on above: . Test Performed by [facility], [address] , [place], [place] [address] Work Phone: [facility] Work Phone: [phone] Protime-INROrdered By: Ronel Ly on 08-16-2020 INR Coag (Bld) [Relative time] 3.2 {INR} High [facility] Work Phone: [phone] Comment on above: Recommended Anticoag ulant Therapy: [...] Interpretation and review of laboratory results Abnormal [facility] Work Phone: [phone] PT Coag (PPP) [Time] 31.6 s High 9.0 - 12.0 s [facility] Work Phone: [phone] Comment on above: . Test Performed by [facility], [address] , [place], [place] [address] [facility] Work Phone: [phone] [facility] Work Phone: [phone] Protime-INRon 05-23-2020 INR Coag (PPP) [Relative time] 3.0 {INR} High [facility] Work Phone: [phone] Comment on above: Recommended Anticoag ulant Therapy: [...] Interpretation and review of laboratory results Abnormal [facility] Work Phone: PT Coag (PPP) [Time] 31 s High 9.0 - 12.0 s [employer] Work Phone: Comment on above: . Test Performed by [facility], [address] , [place], [place] [address] Work Phone: Protime-INRon 05-15-2020 INR Coag (PPP) [Relative time] 3.7 {INR} High [facility] Work Phone: Comment on above: Recommended Anticoag [...] Interpretation and review of laboratory results Abnormal [facility] Work Phone: PT Coag (PPP) [Time] 37.2 s High 9 - 12 s [facility] Work Phone: Comment on above: . Test Performed by [facility], [address] , [place], [place] [address] [facility] Work Phone: Protime-INRon 04-29-2020 INR Coag (PPP) [Relative time] 1.9 {INR} High [facility] Work Phone: Comment on above: Recommended Anticoag [...] Comment on above: . Test Performed by [facility], [address] , [place], [place] [address] [facility] Work Phone: Protime-INRon 04-11-2020 INR Coag (PPP) [Relative time] 3.2 {INR} [place] Comment on above: Recommended Anticoag ulant [...] Interpretation and review of laboratory results Abnormal [place] PT Coag (PPP) [Time] 32.4 s High 9 - 12 s [place], [place] Comment on above: . Test Performed by [facility], [address] , [address] Protime-INRon 04-02-2020 INR Coag (PPP) [Relative time] 2.2 {INR} [place] Comment on above: Recommended Anticoag ulant [...] Interpretation and review of laboratory results Abnormal [place] PT Coag (PPP) [Time] 23.1 s High 9 - 12 s [place] Comment on above: . Test Performed by [facility], [address] , [address] Protime-INRon 03-28-2020 INR Coag (PPP) [Relative time] 5.7 {INR} Critically high [place] Comment on above: verified by repeat [...] Interpretation and review of laboratory results Abnormal [place] PT Coag (PPP) [Time] 56 s High 9 - 12 s [place] Comment on above: . Test Performed by [facility], [address] , [address] Protime-INRon 03-18-2020 INR Coag (PPP) [Relative time] 2.3 {INR} [place] Comment on above: Recommended Anticoag ulant [...] Interpretation and review of laboratory results Abnormal [place] PT Coag (PPP) [Time] 23.8 s High 9 - 12 s [place] Comment on above: . Test Performed by [facility], [address] , [address] Protime-INRon 03-12-2020 INR Coag (PPP) [Relative time] 5.1 {INR} Critically high [place] Comment on above: Checked and verified [...] Interpretation and review of laboratory results Abnormal [place] PT Coag (PPP) [Time] 50.8 s High 9 - 12 s [place] Comment on above: . Test Performed by [facility], [address] , [address] Protime-INRon 02-20-2020 INR Coag (PPP) [Relative time] 3.1 {INR} [place] Comment on above: Recommended Anticoag ulant [...] Interpretation and review of laboratory results Abnormal [place] PT Coag (PPP) [Time] 31.4 s High 9 - 12 s [place] Comment on above: . Test Performed by [employer] [facility], [address] , [address] Hematologyon 02-01-2020 INR Coag (PPP) [Relative time] 2.1 {INR} [place] Comment on above: Recommended Anticoag ulant [...] 21.5 s High 9 - 12 s [place] Comment on above: . Otheron 02-01-2020 Interpretation and review of laboratory results Abnormal [place], [place] Test Performed by [facility], [address] , [address] Protime-INRon 01-25-2020 INR Coag (PPP) [Relative time] 1.1 {INR} [place], [place] Comment on above: Recommended Anticoag ulant [...] [Time] 11.6 s 9 - 12 s [place], [place] Comment on above: . Test Performed by [facility], [address] , [address] LUNA ERNST DIGITAL DIAGNOSTIC BILATERALon 11-27-2019 Patient Name: ALTA MOYA ---Mammography--- Exam Date/Time 11/27/2019 08:56:22 EDT Exam Breast Tomosynthesis BI Ordering Physician DO IBARRA EUGENE F. Accession Number [id number] CPT4 Codes 84185 (MG Breast Tomosynthesis BI), 50350 (MG MAMMO 2D DIAG BILAT) Reason For [...] images: BB's = Nipples; skin lesions [place] = Palpable Line = Scar 2D digital mammography and tomosynthesis imaging were performed and reviewed with CAD. ASSESSMENT: Category 3 Probably benign RECOMMENDATION: Follow-up diagnostic mammogram of both breasts in 1 year. . Report Dictated on --- Final --- Signed Date and Time: 11/27/2019 9:30 am Signed by: MD AZUCENA, [facility], [place] E[place], [facility] Results From [facility] - 11/27/2019 3:29 PM EDT Patient Name: ALTA BAKER ---Mammography--- Exam Date/Time 11/27/2019 08:56:22 EDT Exam Breast Tomosynthesis BI Ordering Physician DO IBARRA EUGENE F. Accession Number [id number] CPT4 Codes 74928 (MG Breast Tomosynthesis BI), 56474 (MG MAMMO 2D DIAG BILAT) Reason For [...] images: BB's = Nipples; skin lesions [place] = Palpable Line = Scar 2D digital mammography and tomosynthesis imaging were performed and reviewed with CAD. ASSESSMENT: Category 3 Probably benign RECOMMENDATION: Follow-up diagnostic mammogram of both breasts in 1 year. . Report Dictated on --- Final --- Signed Date and Time: 11/27/2019 9:30 am Signed by: MD WHITTAKER TOM A [place] Protime-INRon 09-21-2019 INR Coag (PPP) [Relative time] 2.6 {INR} [place] Comment on above: Recommended Anticoag ulant [...] Interpretation and review of laboratory results Abnormal [place] PT Coag (PPP) [Time] 26.8 s High 9 - 12 s [place] Comment on above: . Test Performed by [facility], [address] , [place] [id number] [place] [address] Protime-INRon 07-04-2019 INR Coag (PPP) [Relative time] 2.8 {INR} [place] Comment on above: Test Performed by [facility], [address] , [place] [address] Recommended Anticoagulant Therapy: SEE BELOW ----- INR [...] Interpretation and review of laboratory results Abnormal [place] PT Coag (PPP) [Time] 28.7 s High 9 - 12 s [place] Comment on above: . Test Performed by [facility], [address] , [address] CBC Auto Differentialon 03-0 Absolute Baso # 0.1 10*3/uL 0 - 0.2 10*3/uL [place] Absolute Neut # 6.1 10*3/uL 1.8 - 7 10*3/uL [place] Basophils/100 WBC (Bld) 0.6 % 0 - 2 % [place] Eosinophils (Bld) [#/Vol] 0.1 10*3/uL 0 - 0.5 10*3/uL [place] Eosinophils/100 WBC (Bld) 1.2 % 1 - 6 % [place] Erythrocyte distribution width (RBC) [Ratio] 14.9 % High 11.5 - 14.5 % [place] Granulocytes/100 WBC (Bld) 61.4 % 40 - 80 % [place] Hematocrit (Bld) [Volume fraction] 39.4 % 35 - 47 % [place] Hemoglobin (Bld) [Mass/Vol] 13.3 g/dL 11.7 - 16 g/dL [place] Interpretation and review of laboratory results Abnormal [place] Lymphocytes (Bld) [#/Vol] 2.0 10*3/uL 1 - 4.3 10*3/uL [place] Lymphocytes/100 WBC (Bld) 20.1 % 20 - 40 % [place] MCH (RBC) [Entitic mass] 27.9 pg 26 - 34 pg [place] MCHC (RBC) [Mass/Vol] 33.7 % 32 - 36 % [place] MCV (RBC) [Entitic vol] 82.7 fL 79 - 98 fL [place] Monocytes (Bld) [#/Vol] 1.6 10*3/uL High 0 - 0.8 10*3/uL [place] Monocytes/100 WBC (Bld) 16.7 % High 2 - 10 % [place] Platelet mean volume (Bld) [Entitic vol] 9.8 fL 7.4 - 10.4 fL [place] Platelets (Bld) [#/Vol] 180 10*3/uL 140 - 440 10*3/uL [place] RBC (Bld) [#/Vol] 4.76 10*6/uL 3.8 - 5.2 10*6/uL [place] WBC (Bld) [#/Vol] 9.9 10*3/uL 3.6 - 10.7 10*3/uL [place] Test Performed by [facility], [facility] [address] , [place], [place] [id number] [place] [address] Comprehensive Metabolic Pane amaury 05-19-2019 Albumin [Mass/Vol] 4.3 g/dL 3.5 - 5 g/dL [place] ALP [Catalytic activity/Vol] 72 U/L 38 - 126 U/L [place] ALT [Catalytic activity/Vol] 43 U/L 13 - 69 U/L [place] Anion gap [Moles/Vol] 9 mmol/L [place] AST [Catalytic activity/Vol] 24 U/L 15 - 46 U/L [place] Bilirubin Ql (U) 0.6 mg/dL 0.2 - 1.3 mg/dL [place] Calcium [Mass/Vol] 9.5 mg/dL 8.4 - 10. 4 mg/dL [place] Chloride [Moles/Vol] 99 mmol/L 98 - 10 7 mmol/L [place] CO2 [Moles/Vol] 31 mmol/L High 22 - 30 mmol/L [place] Creatinine [Mass/Vol] 0.83 mg/dL 0.52 - 1.25 mg/dL [place] EGFR IF NonAfrican [place] >60.0 >60 mL/min [place] Comment on above: Source- MDRD equatio n with creatinine calibration to IDMS(NKDEP) eGFR not recommended for drug dose adjustment GFR/1.73 sq M predicted among blacks MDRD (S/P/Bld) [Vol rate/Area] mL/min/{1.73_m2} >60 mL/min [place] Glucose [Mass/Vol] 110 mg/dL High 70 - 100 mg/dL [place] Potassium [Moles/Vol] 4.2 mmol/L 3.5 - 5.1 mmol/L [place] Protein [Mass/Vol] 7.2 g/dL 6.3 - 8.2 g/dL [place] Sodium [Moles/Vol] 139 mmol/L 135 - 145 mmol/L [place] Urea nitrogen [Mass/Vol] 15 mg/dL 7 - 20 mg/dL [place] Lipid Panelon 05-19-2019 Cholesterol [Mass/Vol] 131 mg/dL <200 [place], [place] Cholesterol in HDL [Mass/Vol] 34 mg/dL Low 40 - 60 mg/dL [place] Cholesterol in LDL [Mass/Vol] 66 mg/dL <100 [place] Cholesterol.total/Chol esterol in HDL [Mass ratio] 4 {ratio} [place] Comment on above: Ref Range: < 3 Low Risk for CHD 3-6 Mod Risk for CHD > 6 High Risk for CHD Triglyceride [Mass/Vol] 154 mg/dL Abnormal <150 [place] Otheron 05-19-2019 Interpretation and review of laboratory results Abnormal [place] Test Performed by [facility], [facility] [address] , [place] Protime-INRon 05-19-2019 INR Coag (PPP) [Relative time] 2.4 {INR} [place] Comment on above: Recommended Anticoag ulant [...] Interpretation and review of laboratory results Abnormal [place] PT Coag (PPP) [Time] 23.8 s High 9 - 12 s [place] Comment on above: . Test Performed by [facility], [address] , [address] TSH without Reflexon 020 Interpretation and review of laboratory results Abnormal [place] TSH Qn 5.160 u[IU]/mL High 0.465 - 4.68 u[IU]/mL [place] Test Performed by [facility], [address] , [address] Protime-INRon 04-25-2019 INR Coag (PPP) [Relative time] 3.4 {INR} [place] [facility] Work Phone: Comment on above: Recommended Anticoag [...] Comment on above: . Test Performed by [facility], [address] , [place], [place] [address] [facility] Work Phone: Protime-INROrdered By: Ronel Ly on 03-20-2019 INR Coag (PPP) [Relative time] 2.4 {INR} [place] [facility] Work Phone: Comment on above: Recommended Anticoag [...] [facility] Work Phone: PT Coag (PPP) [Time] 24.4 s High 9 - 12 s [facility] Work Phone: Comment on above: . Test Performed by [facility], [address] , [place], [place] [address] [employer] Work Phone: Protime-INRon 02-06-2019 INR Coag (PPP) [Relative time] 2.3 {INR} [place] Comment on above: Recommended Anticoag ulant [...] Interpretation and review of laboratory results Abnormal [place] PT Coag (PPP) [Time] 23.4 s High 9 - 12 s [place] Comment on above: . Test Performed by [facility], [address] , [address] Protime-INRon 02-03-2019 INR Coag (PPP) [Relative time] 3.6 {INR} [place] Comment on above: Recommended Anticoag ulant [...] Interpretation and review of laboratory results Abnormal [place] PT Coag (PPP) [Time] 35.6 s High 9 - 12 s [place] Comment on above: . Test Performed by [facility], [address] , [address] Protime-INRon 01-06-2019 INR Coag (PPP) [Relative time] 1.9 {INR} [place] Comment on above: Recommended Anticoag ulant [...] Interpretation and review of laboratory results Abnormal [place] PT Coag (PPP) [Time] 19.3 s High 9 - 12 s [place] Comment on above: . Test Performed by [employer] [facility], [address] , [address] Protime-INRon 10-25-2018 INR Coag (PPP) [Relative time] 2.4 {INR} [place] Comment on above: Recommended Anticoag ulant [...] Interpretation and review of laboratory results Abnormal [place] PT Coag (PPP) [Time] 24.8 s High 9 - 12 s [place] Comment on above: . Test Performed by [facility], [facility] [address] , [address] No Panel Information Respiratory Panel (PCR) RSV A [facility] Work Phone: Respiratory Panel (PCR) RSV B [facility] Work Phone: SARS-CoV-2 & FLU Antigen (Rapid) [facility] Work Phone: Streptococcus pneumoniae Antigen (M [facility] Work Phone: Vital Signs Date Time Vital Sign Value Performing Clinician Facility 01-10-2025 14:37-0400 Body height 152.4 cm [facility] Work Phone: [place] 01-10-2025 14:37-0400 Body mass index (BMI) [Ratio] 42.89 kg/m2 [facility] Work Phone: [place] 01-10-2025 14:37-0400 Body temperature 97.81 [degF] [facility] Work Phone: [place] 01-10-2025 14:37-0400 Body weight 99.61 kg [facility] Work Phone: [place] 01-10-2025 14:37-0400 Diastolic blood pressure 78 mm[Hg] [facility] Work Phone: [place] 01-10-2025 14:37-0400 Heart rate 98 /min [facility] Work Phone: [place] 01-10-2025 14:37-0400 Systolic blood pressure 138 mm[Hg] Marion Siobhan DO Work Phone: [facility] 12-20-2024 10:30-0400 Diastolic blood pressure 52 mm[Hg] Marion Siobhan DO Work Phone: [facility] 12-20-2024 10:30-0400 Heart rate 96 /min Marion Siobhan DO Work Phone: [facility] 12-20-2024 10:30-0400 Respiratory rate 14 /min Marion Siobhan DO Work Phone: [facility] 12-20-2024 10:30-0400 SaO2% (BldA) [Mass fraction] 96 % Marion Siobhan DO Work Phone: [facility] 12-20-2024 10:30-0400 Systolic blood pressure 112 mm[Hg] Marion Siobhan DO Work Phone: [facility] 12-20-2024 09:35-0400 Body temperature 97.3 [degF] Marion Siobhan DO Work Phone: [facility] 12-20-2024 06:52-0400 Body height 149.9 cm Marion Siobhan DO Work Phone: [facility] 12-20-2024 06:52-0400 Body mass index (BMI) [Ratio] 42.82 kg/m2 Marion Siobhan DO Work Phone: [facility] 12-20-2024 06:52-0400 Body weight 96.16 kg Marion Siobhan DO Work Phone: [facility] 12-06-2024 14:26-0400 Diastolic blood pressure 80 mm[Hg] Josselyn Moneypenny PA-C Work Phone: [facility] 12-06-2024 14:26-0400 Systolic blood pressure 160 mm[Hg] Josselyn Moneypenny PA-C Work Phone: [facility] 12-06-2024 13:57-0400 Body height 149.9 cm Josselyn Moneypenny PA-C Work Phone: [facility] 12-06-2024 13:57-0400 Body mass index (BMI) [Ratio] 42.86 kg/m2 Josselyn Moneypenny PA-C Work Phone: [facility] 12-06-2024 13:57-0400 Body weight 96.25 kg Josselyn Moneypenny PA-C Work Phone: [facility] 12-06-2024 13:57-0400 Heart rate 88 /min Josselyn Moneypenny PA-C Work Phone: [facility] 12-06-2024 13:57-0400 SaO2% (BldA) [Mass fraction] 93 % Josselyn Moneypenny PA-C Work Phone: [facility] 12-04-2024 14:07-0400 Body height 149.9 cm eBnita Moon MD Work Phone: [facility] 12-04-2024 14:07-0400 Body mass index (BMI) [Ratio] 42.41 kg/m2 Benita Moon MD Work Phone: [facility] 12-04-2024 14:07-0400 Body weight 95.25 kg Benita Moon MD Work Phone: [facility] 11-21-2024 09:13-0400 Body height 149.9 cm Marion Siobhan DO Work Phone: [facility] 11-21-2024 09:13-0400 Body mass index (BMI) [Ratio] 42.44 kg/m2 Marion Siobhan DO Work Phone: [facility] 11-21-2024 09:13-0400 Body temperature 98.01 [degF] Marion Siobhan DO Work Phone: [facility] 11-21-2024 09:13-0400 Body weight 95.3 kg Marion Siobhan DO Work Phone: [facility] 11-21-2024 09:13-0400 Diastolic blood pressure 76 mm[Hg] Marion Siobhan DO Work Phone: [facility] 11-21-2024 09:13-0400 Heart rate 88 /min Marion Siobhan DO Work Phone: [facility] 11-21-2024 09:13-0400 SaO2% (BldA) [Mass fraction] 100 % Marion Siobhan DO Work Phone: [facility] 11-21-2024 09:13-0400 Systolic blood pressure 130 mm[Hg] Marion Siobhan DO Work Phone: [facility] 11-09-2024 14:12-0400 Diastolic blood pressure 63 mm[Hg] Marion Siobhan DO Work Phone: [facility] 11-09-2024 14:12-0400 Systolic blood pressure 140 mm[Hg] Marion Siobhan DO Work Phone: [facility] 11-09-2024 14:05-0400 Body height 149.9 cm Marion Siobhan DO Work Phone: [facility] 11-09-2024 14:05-0400 Body mass index (BMI) [Ratio] 42.8 kg/m2 Marion Siobhan DO Work Phone: [facility] 11-09-2024 14:05-0400 Body temperature 97.9 [degF] Marion Siobhan DO Work Phone: [facility] 11-09-2024 14:05-0400 Body weight 96.12 kg Marion Siobhan DO Work Phone: [facility] 11-09-2024 14:05-0400 Heart rate 91 /min Marion Siobhan DO Work Phone: [facility] 11-09-2024 14:05-0400 SaO2% (BldA) [Mass fraction] 98 % Marion Siobhan DO Work Phone: [facility] 09-28-2024 14:42-0400 Body height 149.9 cm Kory Ibarra DO Work Phone: [facility] 09-28-2024 14:42-0400 Body mass index (BMI) [Ratio] 44.03 kg/m2 Kory Ibarra DO Work Phone: [facility] 09-28-2024 14:42-0400 Body weight 98.88 kg Kory Ibarra DO Work Phone: [facility] 08-28-2024 16:01-0400 Inhaled oxygen flow rate 2 L/min Dr. Davis Irene DO Work Phone: [facility] 08-28-2024 14:00-0400 Body temperature 98.9 [degF] Dr. Davis Irene DO Work Phone: [facility] 08-28-2024 14:00-0400 Diastolic blood pressure 50 mm[Hg] Dr. Davis Irene DO Work Phone: [facility] 08-28-2024 14:00-0400 Heart rate 90 /min Dr. Davis Irene DO Work Phone: [facility] 08-28-2024 14:00-0400 Respiratory rate 16 /min Dr. Davis Irene DO Work Phone: [facility] 08-28-2024 14:00-0400 SaO2% (BldA) [Mass fraction] 94 % Dr. Davis Irene DO Work Phone: [facility] 08-28-2024 14:00-0400 Systolic blood pressure 106 mm[Hg] Dr. Davis Irene DO Work Phone: [facility] 08-28-2024 08:57-0400 Body height 149.[address] Davis Irene DO Work Phone: [facility] 08-28-2024 08:57-0400 Body weight 94.[address] Davis Irene DO Work Phone: [facility] 08-28-2024 04:54-0400 Body mass index (BMI) [Ratio] 42.2 kg/m2 Dr. Davis Irene DO Work Phone: [facility] 08-26-2024 05:50-0400 Inhaled oxygen concentration 25 % Dr. Davis Irene DO Work Phone: [facility] 08-25-2024 00:00-0400 Diastolic blood pressure 75 mm[Hg] Dr. Davis Irene DO Work Phone: [facility] 08-25-2024 00:00-0400 Heart rate 115 /min Dr. Davis Irene DO Work Phone: [facility] 08-25-2024 00:00-0400 Inhaled oxygen flow rate 2 L/min Dr. Daivs Irene DO Work Phone: [facility] 08-25-2024 00:00-0400 Respiratory rate 23 /min Dr. Davis Irene DO Work Phone: [facility] 08-25-2024 00:00-0400 SaO2% (BldA) [Mass fraction] 96 % Dr. Davis Irene DO Work Phone: [facility] 08-25-2024 00:00-0400 Systolic blood pressure 125 mm[Hg] Dr. Davis Irene DO Work Phone: [facility] 08-24-2024 23:49-0400 Body temperature 98.6 [degF] Dr. Davis Irene DO Work Phone: [facility] 08-24-2024 18:34-0400 Body height 149.[address] Davis Irene DO Work Phone: [facility] 08-24-2024 18:34-0400 Body mass index (BMI) [Ratio] 43.5 kg/m2 Dr. Davis Irene DO Work Phone: [facility] 08-24-2024 18:34-0400 Body weight 97.[address] Davis Irene DO Work Phone: [facility] 08-15-2024 10:00-0400 Body height 149.9 cm Kory Ibarra DO Work Phone: [facility] 08-15-2024 10:00-0400 Body mass index (BMI) [Ratio] 44.43 kg/m2 Kory Ibarra DO Work Phone: [facility] 08-15-2024 10:00-0400 Body temperature 97.9 [degF] Kory Ibarra DO Work Phone: [facility] 08-15-2024 10:00-0400 Body weight 99.79 kg Kory Ibarra DO Work Phone: [facility] 08-15-2024 10:00-0400 Diastolic blood pressure 75 mm[Hg] Kory Ibarra DO Work Phone: [facility] 08-15-2024 10:00-0400 Heart rate 74 /min Kory Ibarra DO Work Phone: [facility] 08-15-2024 10:00-0400 SaO2% (BldA) [Mass fraction] 99 % Kory Ibarra DO Work Phone: [facility] 08-15-2024 10:00-0400 Systolic blood pressure 123 mm[Hg] Kory Ibarra DO Work Phone: [facility] 08-09-2024 14:26-0400 Body temperature 96.91 [degF] Miranda Marion APRN.MOVE COORDINATOR Work Phone: [facility] 08-09-2024 14:26-0400 Body weight 100.1 kg Miranda Marion APRN.MOVE COORDINATOR Work Phone: [facility] 08-09-2024 14:26-0400 Diastolic blood pressure 72 mm[Hg] Miranda Marion APRN.MOVE COORDINATOR Work Phone: [facility] 08-09-2024 14:26-0400 Heart rate 100 /min Miranda Marion CRUDE OIL DRIVER.MOVE COORDINATOR Work Phone: [facility] 08-09-2024 14:26-0400 Respiratory rate 20 /min Miranda Marion CRUDE OIL DRIVER.MOVE COORDINATOR Work Phone: [facility] 08-09-2024 14:26-0400 SaO2% (BldA) [Mass fraction] 92 % Miranda Marion CRUDE OIL DRIVER.MOVE COORDINATOR Work Phone: [facility] 08-09-2024 14:26-0400 Systolic blood pressure 122 mm[Hg] Miranda Marion CRUDE OIL DRIVER.MOVE COORDINATOR Work Phone: [facility] 07-31-2024 12:08-0400 Diastolic blood pressure 64 mm[Hg] Benita Moon MD Work Phone: [facility] 07-31-2024 12:08-0400 Systolic blood pressure 136 mm[Hg] Benita Moon MD Work Phone: [facility] 07-31-2024 11:34-0400 Body height 149.9 cm Benita Moon MD Work Phone: [facility] 07-31-2024 11:34-0400 Body mass index (BMI) [Ratio] 43.71 kg/m2 Benita Moon MD Work Phone: [facility] 07-31-2024 11:34-0400 Body weight 98.16 kg Benita oMon MD Work Phone: [facility] 07-31-2024 11:34-0400 Heart rate 98 /min Benita Moon MD Work Phone: [facility] 07-31-2024 11:34-0400 SaO2% (BldA) [Mass fraction] 94 % Benita Moon MD Work Phone: [facility] 06-19-2024 10:41-0400 Diastolic blood pressure 78 mm[Hg] Kory Ibarra DO Work Phone: [facility] 06-19-2024 10:41-0400 Heart rate 92 /min Kory Ibarra DO Work Phone: [facility] 06-19-2024 10:41-0400 Respiratory rate 16 /min Kory Ibarra DO Work Phone: [facility] 06-19-2024 10:41-0400 Systolic blood pressure 126 mm[Hg] Kory Ibarra DO Work Phone: [facility] 06-19-2024 10:06-0400 Body height 149.9 cm Kory Ibarra DO Work Phone: [facility] 06-19-2024 10:06-0400 Body mass index (BMI) [Ratio] 40.31 kg/m2 Kory Ibarra DO Work Phone: [facility] 06-19-2024 10:06-0400 Body temperature 97.59 [degF] Kory Ibarra DO Work Phone: [facility] 06-19-2024 10:06-0400 Body weight 90.54 kg Kory Ibarra DO Work Phone: [facility] 06-19-2024 10:06-0400 SaO2% (BldA) [Mass fraction] 96 % Kory Ibarra DO Work Phone: [facility] 06-05-2024 16:00-0400 Body temperature 97.9 [degF] Dr. Davis Irene DO Work Phone: [facility] 06-05-2024 16:00-0400 Diastolic blood pressure 65 mm[Hg] Dr. Davis Irene DO Work Phone: [facility] 06-05-2024 16:00-0400 Heart rate 85 /min Dr. Davis Irene DO Work Phone: [facility] 06-05-2024 16:00-0400 Respiratory rate 17 /min Dr. Davis Irene DO Work Phone: [facility] 06-05-2024 16:00-0400 SaO2% (BldA) [Mass fraction] 98 % Dr. Davis Irene DO Work Phone: [facility] 06-05-2024 16:00-0400 Systolic blood pressure 133 mm[Hg] Dr. Davis Irene DO Work Phone: [facility] 06-05-2024 14:00-0400 Inhaled oxygen flow rate 2 L/min Dr. Davis Irene DO Work Phone: [facility] 06-05-2024 00:00-0400 Inhaled oxygen concentration 30 % Dr. Davis Irene DO Work Phone: [facility] 06-03-2024 08:39-0400 Body height 149.[address] Davis Irene DO Work Phone: [facility] 06-03-2024 08:39-0400 Body weight 98.[address] Davis Irene DO Work Phone: [facility] 06-02-2024 15:35-0400 Body mass index (BMI) [Ratio] 43.7 kg/m2 Dr. Davis Irene DO Work Phone: [facility] 06-02-2024 14:13-0400 Body temperature 98.1 [degF] Dr. Davis Irene DO Work Phone: [facility] 06-02-2024 14:13-0400 Diastolic blood pressure 93 mm[Hg] Dr. Davis Irene DO Work Phone: [facility] 06-02-2024 14:13-0400 Heart rate 108 /min Dr. Davis Irene DO Work Phone: [facility] 06-02-2024 14:13-0400 Respiratory rate 24 /min Dr. Davis Irene DO Work Phone: [facility] 06-02-2024 14:13-0400 SaO2% (BldA) [Mass fraction] 97 % Dr. Davis Irene DO Work Phone: [facility] 06-02-2024 14:13-0400 Systolic blood pressure 148 mm[Hg] Dr. Davis Irene DO Work Phone: [facility] 06-02-2024 13:22-0400 Inhaled oxygen concentration 30 % Dr. Davis Irene DO Work Phone: [facility] 06-02-2024 10:33-0400 Body height 149.[address] Davis Irene DO Work Phone: [facility] 06-02-2024 10:33-0400 Body mass index (BMI) [Ratio] 45.4 kg/m2 Dr. Davis Irene DO Work Phone: [facility] 06-02-2024 10:33-0400 Body weight 102.[address] Davis Irene DO Work Phone: [facility] 05-31-2024 10:04-0400 Body height 149.9 cm Chelo Huitron CRUDE OIL DRIVER - MOVE COORDINATOR Work Phone: [facility] 05-31-2024 10:04-0400 Body mass index (BMI) [Ratio] 44.64 kg/m2 Chelo Tobin CRUDE OIL DRIVER - MOVE COORDINATOR Work Phone: [facility] 05-31-2024 10:04-0400 Body weight 100.25 kg Chelo Tobin CRUDE OIL DRIVER - MOVE COORDINATOR Work Phone: [facility] 05-31-2024 10:04-0400 Diastolic blood pressure 74 mm[Hg] Chelo Huitron CRUDE OIL DRIVER - MOVE COORDINATOR Work Phone: [facility] 05-31-2024 10:04-0400 Heart rate 96 /min Chelo Tobin CRUDE OIL DRIVER - MOVE COORDINATOR Work Phone: [facility] 05-31-2024 10:04-0400 Respiratory rate 15 /min Chelo Huitron CRUDE OIL DRIVER - MOVE COORDINATOR Work Phone: [facility] 05-31-2024 10:04-0400 Systolic blood pressure 122 mm[Hg] Chelo Huitron CRUDE OIL DRIVER - MOVE COORDINATOR Work Phone: [facility] 05-25-2024 15:32-0400 Body mass index (BMI) [Ratio] 43.5 kg/m2 Dr. Davis Irene DO Work Phone: [facility] 05-25-2024 15:32-0400 Body temperature 98.2 [degF] Dr. Davis Irene DO Work Phone: [facility] 05-25-2024 15:32-0400 Body weight 97.[address] Davis Irene DO Work Phone: [facility] 05-25-2024 15:32-0400 Diastolic blood pressure 76 mm[Hg] Dr. Davis Irene DO Work Phone: [facility] 05-25-2024 15:32-0400 Heart rate 139 /min Dr. Davis Irene DO Work Phone: [facility] 05-25-2024 15:32-0400 SaO2% (BldA) [Mass fraction] 92 % Dr. Davis Irene DO Work Phone: [facility] 05-25-2024 15:32-0400 Systolic blood pressure 122 mm[Hg] Dr. Davis Irene DO Work Phone: [facility] 05-08-2024 17:00-0500 Heart rate 113 /min Oswaldo Carpenter DO Work Phone: [facility] 05-08-2024 17:00-0500 Respiratory rate 16 /min Oswaldo Carpenter DO Work Phone: [facility] 05-08-2024 17:00-0500 SaO2% (BldA) [Mass fraction] 90 % Oswaldo Carpenter DO Work Phone: [facility] 05-08-2024 11:41-0500 Diastolic blood pressure 44 mm[Hg] Oswaldo Carpenter DO Work Phone: [facility] 05-08-2024 11:41-0500 Systolic blood pressure 135 mm[Hg] Oswaldo Carpenter DO Work Phone: [facility] 05-08-2024 11:26-0500 Body height 149.9 cm Oswaldo Carpenter DO Work Phone: [facility] 05-08-2024 11:26-0500 Body mass index (BMI) [Ratio] 43.63 kg/m2 Oswaldo Carpenter DO Work Phone: [facility] 05-08-2024 11:26-0500 Body weight 97.98 kg Oswaldo Carpenter DO Work Phone: [facility] 05-08-2024 08:00-0500 Body temperature 97.81 [degF] Oswaldo Hoytel DO Work Phone: [facility] 05-02-2024 18:45-0500 SaO2% (BldA) [Mass fraction] 95.8 % Oswaldo Carpenter DO Work Phone: [facility] 04-27-2024 09:10-0500 Body height 149.9 cm Benita Moon MD Work Phone: [facility] 04-27-2024 09:10-0500 Body mass index (BMI) [Ratio] 40.23 kg/m2 Benita Moon MD Work Phone: [facility] 04-27-2024 09:10-0500 Body weight 90.36 kg Benita Moon MD Work Phone: [facility] 04-27-2024 09:10-0500 Diastolic blood pressure 70 mm[Hg] Benita Moon MD Work Phone: [facility] 04-27-2024 09:10-0500 Heart rate 60 /min Benita Moon MD Work Phone: [facility] 04-27-2024 09:10-0500 SaO2% (BldA) [Mass fraction] 95 % Benita Moon MD Work Phone: [facility] 04-27-2024 09:10-0500 Systolic blood pressure 130 mm[Hg] Benita Moon MD Work Phone: [facility] 04-03-2024 10:17-0500 Body height 152.4 cm Kory Ibarra DO Work Phone: [place] 04-03-2024 10:17-0500 Body mass index (BMI) [Ratio] 41.01 kg/m2 Kory Ibarra DO Work Phone: [place] 04-03-2024 10:17-0500 Body temperature 97.2 [degF] Kory Ibarra DO Work Phone: [place] 04-03-2024 10:17-0500 Body weight 95.25 kg Kory Ibarra DO Work Phone: [place] 04-03-2024 10:17-0500 Diastolic blood pressure 70 mm[Hg] Kory Ibarra DO Work Phone: [place] 04-03-2024 10:17-0500 Heart rate 73 /min Kory Ibarra DO Work Phone: [place] 04-03-2024 10:17-0500 SaO2% (BldA) [Mass fraction] 98 % Kory Ibarra DO Work Phone: [place] 04-03-2024 10:17-0500 Systolic blood pressure 104 mm[Hg] Kory Ibarra DO Work Phone: [place] 02-22-2024 07:59-0500 Body temperature 97 [degF] Brina Rocha DO Work Phone: [place] 02-22-2024 07:59-0500 Diastolic blood pressure 69 mm[Hg] Brina Prettyy DO Work Phone: [place] 02-22-2024 07:59-0500 Heart rate 96 /min Brina Smithffey DO Work Phone: [place] 02-22-2024 07:59-0500 Respiratory rate 21 /min Brina Smithffey DO Work Phone: [place] 02-22-2024 07:59-0500 SaO2% (BldA) [Mass fraction] 95 % Brina Prettyy DO Work Phone: [place] 02-22-2024 07:59-0500 Systolic blood pressure 159 mm[Hg] Brina Rocha DO Work Phone: [place] 02-21-2024 06:00-0500 Body mass index (BMI) [Ratio] 49.08 kg/m2 Brina Rocha DO Work Phone: [facility] 02-21-2024 06:00-0500 Body weight 114 kg Brina Rocha DO Work Phone: [facility] 02-17-2024 10:04-0500 Body height 152.4 cm Brina Rocha DO Work Phone: [facility] 02-14-2024 11:46-0500 Body height 152.4 cm Curt Last PA-C Work Phone: [facility] 02-14-2024 11:46-0500 Body temperature 97.2 [degF] Curt Last PA-C Work Phone: [place] 02-14-2024 11:46-0500 Diastolic blood pressure 62 mm[Hg] Curt Last PA-C Work Phone: [place] 02-14-2024 11:46-0500 Heart rate 74 /min Curt Last PA-C Work Phone: [place] 02-14-2024 11:46-0500 SaO2% (BldA) [Mass fraction] 90 % Curt Last PA-C Work Phone: [place] 02-14-2024 11:46-0500 Systolic blood pressure 122 mm[Hg] Curt Last PA-C Work Phone: [place] 02-11-2024 20:17-0500 Body height 152.4 cm Elias Nesheim DO Work Phone: [place] 02-11-2024 20:17-0500 Body mass index (BMI) [Ratio] 48.82 kg/m2 Elias Nesheim DO Work Phone: [place] 02-11-2024 20:17-0500 Body temperature 98.2 [degF] Elias Nesheim DO Work Phone: [place] 02-11-2024 20:17-0500 Body weight 113.4 kg Elias Nesheim DO Work Phone: [place] 02-11-2024 20:17-0500 Diastolic blood pressure 111 mm[Hg] Elias Nesheim DO Work Phone: [place] 02-11-2024 20:17-0500 Heart rate 84 /min Elias Nesheim DO Work Phone: [place] 02-11-2024 20:17-0500 Respiratory rate 18 /min Elias Nesheim DO Work Phone: [place] 02-11-2024 20:17-0500 SaO2% (BldA) [Mass fraction] 94 % Elias Nesheim DO Work Phone: [place] 02-11-2024 20:17-0500 Systolic blood pressure 163 mm[Hg] Elias Nesheim DO Work Phone: [place] 02-04-2024 21:56-0500 Diastolic blood pressure 96 mm[Hg] Kellie Candido DO Work Phone: [place] 02-04-2024 21:56-0500 Heart rate 102 /min Kellie Maldonado DO Work Phone: [place] 02-04-2024 21:56-0500 Respiratory rate 20 /min Kellie Maldonado DO Work Phone: [place] 02-04-2024 21:56-0500 SaO2% (BldA) [Mass fraction] 92 % Kellie Maldonado DO Work Phone: [place] 02-04-2024 21:56-0500 Systolic blood pressure 157 mm[Hg] Kellie Candido DO Work Phone: [place] 02-04-2024 20:34-0500 Body mass index (BMI) [Ratio] 50.49 kg/m2 Kellie Maldonado DO Work Phone: [place] 02-04-2024 20:34-0500 Body temperature 98.1 [degF] Kellie Maldonado DO Work Phone: [facility] 02-04-2024 20:34-0500 Body weight 113.4 kg Kellie Maldonado DO Work Phone: [facility] 02-04-2024 19:20-0500 Body temperature 97.7 [degF] Pao Elias APRN.MOVE COORDINATOR Work Phone: [facility] 02-04-2024 19:20-0500 Body weight 116.6 kg Pao Elias APRN.MOVE COORDINATOR Work Phone: [facility] 02-04-2024 19:20-0500 Diastolic blood pressure 86 mm[Hg] Pao Elias APRN.MOVE COORDINATOR Work Phone: [facility] 02-04-2024 19:20-0500 Heart rate 88 /min Pao Elias APRN.MOVE COORDINATOR Work Phone: [facility] 02-04-2024 19:20-0500 Respiratory rate 24 /min Pao Elias APRN.MOVE COORDINATOR Work Phone: [facility] 02-04-2024 19:20-0500 SaO2% (BldA) [Mass fraction] 94 % Pao Elias APRN.MOVE COORDINATOR Work Phone: [facility] 02-04-2024 19:20-0500 Systolic blood pressure 178 mm[Hg] Pao Elias APRN.MOVE COORDINATOR Work Phone: [facility] 01-25-2024 10:25-0500 Diastolic blood pressure 80 mm[Hg] Chelo Huitron CRUDE OIL DRIVER - MOVE COORDINATOR Work Phone: [facility] 01-25-2024 10:25-0500 Systolic blood pressure 148 mm[Hg] Chelo Huitron CRUDE OIL DRIVER - MOVE COORDINATOR Work Phone: [facility] 01-25-2024 10:05-0500 Body height 149.9 cm Chelo Huitron CRUDE OIL DRIVER - MOVE COORDINATOR Work Phone: [facility] 01-25-2024 10:05-0500 Body mass index (BMI) [Ratio] 51.58 kg/m2 Chelo Huitron APRN - MOVE COORDINATOR Work Phone: [place] 01-25-2024 10:05-0500 Body weight 115.85 kg Chelo Huitron APRN - MOVE COORDINATOR Work Phone: [facility] 01-25-2024 10:05-0500 Heart rate 114 /min Chelo Huitron APRN - MOVE COORDINATOR Work Phone: [facility] 01-25-2024 10:05-0500 SaO2% (BldA) [Mass fraction] 93 % Chelo Huitron APRN - MOVE COORDINATOR Work Phone: [facility] 12-21-2023 10:01-0400 Body height 149.9 cm Kory Ibarra DO Work Phone: [facility] 12-21-2023 10:01-0400 Body mass index (BMI) [Ratio] 49.2 kg/m2 Kory Ibarra DO Work Phone: [place] 12-21-2023 10:01-0400 Body temperature 97.5 [degF] Kory Ibarra DO Work Phone: [place] 12-21-2023 10:01-0400 Body weight 110.5 kg Kory Ibarra DO Work Phone: [facility] 12-21-2023 10:01-0400 Diastolic blood pressure 87 mm[Hg] Kory Ibarra DO Work Phone: [facility] 12-21-2023 10:01-0400 Heart rate 93 /min Kory Ibarra DO Work Phone: [facility] 12-21-2023 10:01-0400 SaO2% (BldA) [Mass fraction] 97 % Kory Ibarra DO Work Phone: [facility] 12-21-2023 10:01-0400 Systolic blood pressure 137 mm[Hg] Kory Ibarra DO Work Phone: [place] 08-11-2023 10:32-0400 Body height 149.9 cm Benita Moon MD Work Phone: [facility] 08-11-2023 10:32-0400 Body mass index (BMI) [Ratio] 50.09 kg/m2 Benita Moon MD Work Phone: [facility] 08-11-2023 10:32-0400 Body weight 112.49 kg Benita Moon MD Work Phone: [facility] 08-11-2023 10:32-0400 Diastolic blood pressure 60 mm[Hg] Benita Moon MD Work Phone: [facility] 08-11-2023 10:32-0400 Heart rate 72 /min Benita Moon MD Work Phone: [facility] 08-11-2023 10:32-0400 Respiratory rate 15 /min Benita Moon MD Work Phone: [facility] 08-11-2023 10:32-0400 Systolic blood pressure 136 mm[Hg] Benita Moon MD Work Phone: [facility] 03-25-2023 10:32-0500 Body height 149.9 cm Kory Ibarra DO Work Phone: [facility] 03-25-2023 10:32-0500 Body mass index (BMI) [Ratio] 49.89 kg/m2 Kory Ibarra DO Work Phone: [facility] 03-25-2023 10:32-0500 Body temperature 97.11 [degF] Kory Ibarra DO Work Phone: [facility] 03-25-2023 10:32-0500 Body weight 112.04 kg Kory Jimeneza DO Work Phone: [facility] 03-25-2023 10:32-0500 Diastolic blood pressure 60 mm[Hg] Kory Bellestanleya DO Work Phone: [facility] 03-25-2023 10:32-0500 Heart rate 76 /min Kory Bellestanleybessy DO Work Phone: [facility] 03-25-2023 10:32-0500 SaO2% (BldA) [Mass fraction] 96 % Kory Ibarra DO Work Phone: [facility] 03-25-2023 10:32-0500 Systolic blood pressure 137 mm[Hg] Kory Ibarra DO Work Phone: [facility] 02-02-2023 11:31-0500 Diastolic blood pressure 78 mm[Hg] Chelo Sabinaynick CRUDE OIL DRIVER - MOVE COORDINATOR Work Phone: [facility] 02-02-2023 11:31-0500 Systolic blood pressure 148 mm[Hg] Chelo Sabinaynick CRUDE OIL DRIVER - MOVE COORDINATOR Work Phone: [facility] 02-02-2023 11:08-0500 Body height 149.9 cm Chelo Sabinaynick CRUDE OIL DRIVER - MOVE COORDINATOR Work Phone: [facility] 02-02-2023 11:08-0500 Body mass index (BMI) [Ratio] 49.28 kg/m2 Chelo Sabinaynick CRUDE OIL DRIVER - MOVE COORDINATOR Work Phone: [facility] 02-02-2023 11:08-0500 Body weight 110.68 kg Chelo Kraynick CRUDE OIL DRIVER - MOVE COORDINATOR Work Phone: [facility] 02-02-2023 11:08-0500 Heart rate 65 /min Chelo Kraynick CRUDE OIL DRIVER - MOVE COORDINATOR Work Phone: [facility] 02-02-2023 11:08-0500 SaO2% (BldA) [Mass fraction] 94 % Chelo Sabinaynick CRUDE OIL DRIVER - MOVE COORDINATOR Work Phone: [facility] 12-29-2022 09:20-0400 Body temperature 99.39 [degF] Alannah Praisler-Wood CRUDE OIL DRIVER.MOVE COORDINATOR Work Phone: [facility] 12-29-2022 09:20-0400 Body weight 114.22 kg Alannah Praisler-Wood CRUDE OIL DRIVER.MOVE COORDINATOR Work Phone: [facility] 12-29-2022 09:20-0400 Diastolic blood pressure 82 mm[Hg] Alannah Praisler-Wood CRUDE OIL DRIVER.MOVE COORDINATOR Work Phone: [facility] 12-29-2022 09:20-0400 Heart rate 105 /min Alannah Praisler-Wood CRUDE OIL DRIVER.MOVE COORDINATOR Work Phone: [facility] 12-29-2022 09:20-0400 Respiratory rate 22 /min Alannah Praisler-Wood CRUDE OIL DRIVER.MOVE COORDINATOR Work Phone: [facility] 12-29-2022 09:20-0400 SaO2% (BldA) [Mass fraction] 94 % Alannah Praisler-Wood CRUDE OIL DRIVER.MOVE COORDINATOR Work Phone: [facility] 12-29-2022 09:20-0400 Systolic blood pressure 150 mm[Hg] Alannah Praisler-Wood CRUDE OIL DRIVER.MOVE COORDINATOR Work Phone: [facility] 09-22-2022 10:22-0400 Body height 149.9 cm Kory Ibarra DO Work Phone: [facility] 09-22-2022 10:22-0400 Body mass index (BMI) [Ratio] 50.7 kg/m2 Kory Jimeneza DO Work Phone: [facility] 09-22-2022 10:22-0400 Body temperature 96.91 [degF] Kory Jimeneza DO Work Phone: [facility] 09-22-2022 10:22-0400 Body weight 113.85 kg Kory Jimeneza DO Work Phone: [facility] 09-22-2022 10:22-0400 Diastolic blood pressure 71 mm[Hg] Kory Jimeneza DO Work Phone: [facility] 09-22-2022 10:22-0400 Heart rate 75 /min Kory Bellestanleya DO Work Phone: [facility] 09-22-2022 10:22-0400 SaO2% (BldA) [Mass fraction] 94 % Kory Bellestanleya DO Work Phone: [facility] 09-22-2022 10:22-0400 Systolic blood pressure 139 mm[Hg] Kory Bellestanleya DO Work Phone: [facility] 03-24-2022 11:16-0500 Diastolic blood pressure 68 mm[Hg] Kory Ibarra DO Work Phone: [facility] 03-24-2022 11:16-0500 Heart rate 72 /min Kory Ibarra DO Work Phone: [facility] 03-24-2022 11:16-0500 Systolic blood pressure 134 mm[Hg] Kory Ibarra DO Work Phone: [facility] 03-24-2022 10:39-0500 Body height 149.9 cm Kory Ibarra DO Work Phone: [facility] 03-24-2022 10:39-0500 Body mass index (BMI) [Ratio] 52.23 kg/m2 Kory Ibarra DO Work Phone: [facility] 03-24-2022 10:39-0500 Body temperature 97 [degF] Kory Ibarra DO Work Phone: [facility] 03-24-2022 10:39-0500 Body weight 117.3 kg Kory Ibarra DO Work Phone: [facility] 03-24-2022 10:39-0500 SaO2% (BldA) [Mass fraction] 95 % Kory Ibarra DO Work Phone: [facility] 01-22-2022 15:01-0500 Heart rate 98 /min Dr. Kory Ibarra Work Phone: [facility] Work Phone: 01-22-2022 15:01-0500 Respiratory rate 20 /min Dr. Kory Ibarra Work Phone: [facility] Work Phone: 01-22-2022 13:55-0500 Inhaled oxygen flow rate 2 L/min Dr. Kory Ibarra Work Phone: [facility] Work Phone: 01-22-2022 13:55-0500 SaO2% (BldA) [Mass fraction] 96 % Dr. Kory Ibarra Work Phone: [facility] Work Phone: 01-22-2022 13:16-0500 Body temperature 98.2 [degF] Dr. Kory Ibarra Work Phone: [facility] Work Phone: 01-22-2022 13:16-0500 Diastolic blood pressure 63 mm[Hg] Dr. Kory Ibarra Work Phone: [facility] Work Phone: 01-22-2022 13:16-0500 Systolic blood pressure 123 mm[Hg] Dr. Kory Ibarra Work Phone: [facility] Work Phone: 01-22-2022 06:00-0500 Body weight 116.[address] Kory Ibarra Work Phone: [facility] Work Phone: 01-19-2022 11:09-0500 Body height 149.[address] Kory Ibarra Work Phone: [facility] Work Phone: 01-19-2022 00:06-0500 Body mass index (BMI) [Ratio] 51.2 kg/m2 Dr. Kory Ibarra Work Phone: [facility] Work Phone: 01-18-2022 23:31-0500 Body temperature 97.9 [degF] [facility] Work Phone: 01-18-2022 23:31-0500 Diastolic blood pressure 64 mm[Hg] [facility] Work Phone: 01-18-2022 23:31-0500 Heart rate 114 /min [facility] Work Phone: 01-18-2022 23:31-0500 Inhaled oxygen flow rate 2 L/min [facility] Work Phone: 01-18-2022 23:31-0500 Respiratory rate 22 /min [facility] Work Phone: 01-18-2022 23:31-0500 SaO2% (BldA) [Mass fraction] 96 % [facility] Work Phone: 01-18-2022 23:31-0500 Systolic blood pressure 139 mm[Hg] [facility] Work Phone: 01-18-2022 21:17-0500 Body height 149.86 cm [facility] Work Phone: 01-18-2022 21:17-0500 Body mass index (BMI) [Ratio] 52.4 kg/m2 [facility] Work Phone: 01-18-2022 21:17-0500 Body weight 117.93 kg [facility] Work Phone: Encounters Encounter Date Encounter Type Care Provider Facility Start: 01-10-2025 End: 01-10-2025 Office outpatient visit 25 minutes Marion Mccann DO Work Phone: [facility] Comment on above: Leukocytosis, unspec ified type (Primary Dx); Thrombocytopenia; Anemia, unspecified type; 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) Start: 01-01-2025 End: 01-02-2025 Refill Josselyn Bhardwaj PA-C Work Phone: [facility] Comment on above: 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, 41-49%) (HCC) Start: 12-27-2024 End: 12-28-2024 Telephone encounter Kory Ibarra DO Work Phone: [facility] Comment on above: Orders (Cpap Machine ) Start: 12-20-2024 End: 12-20-2024 Subsequent hospital visit by physician Marion Mccann DO Work Phone: [facility] Comment on above: Thrombocytopenia; Leukocytosis, unspecified type; Anemia, unspecified type Start: 12-20-2024 End: 12-20-[address] [facility] Start: 12-19-2024 End: 12-19-2024 Follow-up encounter Josselyn Moneypenny PA-C Work Phone: [facility] Comment on above: Basic metabolic pane l Start: 12-19-2024 End: 12-19-[address] [facility] Start: 12-14-2024 End: 12-25-2024 Telephone encounter Kory Ibarra DO Work Phone: [facility] Comment on above: Orders (Oxygen) Start: 12-12-2024 End: 12-12-2024 Telephone encounter Bisi Kennedy RN [facility] Start: 12-11-2024 End: 12-12-2024 Telephone encounter Josselyn Moneypenny PA-C Work Phone: [facility] Comment on above: Results Start: 12-08-2024 End: 12-08-2024 Telephone encounter Josselyn Moneypenny PA-C Work Phone: [facility] [place] Start: 12-06-2024 End: 12-07-2024 Telephone encounter Josselyn Moneypenny PA-C Work Phone: [facility] Comment on above: Orders (Oxygent Requ est) Start: 12-06-2024 End: 12-06-2024 ambulatory JOSSELYN WILYNY [facility] Start: 12-06-2024 End: 12-06-2024 Office outpatient visit 40 minutes Josselyn Moneypenny PA-C Work Phone: [facility] Comment on above: 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, 41-49%) (HCC) (Primary Dx); Congestive heart failure with right heart failure (HCC); Permanent atrial fibrillation (HCC); Pulmonary HTN (HCC); Pericardial effusion Start: 12-04-2024 End: 12-04-2024 Subsequent hospital visit by physician Benita Moon MD Work Phone: [facility] Comment on above: Pulmonary HTN (HCC) Start: 12-04-2024 End: 12-04-2024 ambulatory BENITA MOON [facility] Start: 11-27-2024 End: 11-27-2024 ambulatory KORY IBARRA [facility] Start: 11-23-2024 End: 11-24-2024 Telephone encounter Marion Mccann DO Work Phone: [facility] Comment on above: Labs Only Start: 11-21-2024 End: 11-21-2024 ambulatory MARION El JARVISEL [facility] Start: 11-21-2024 End: 11-21-2024 Office outpatient visit 25 minutes Marion Mccann DO Work Phone: [facility] Comment on above: Leukocytosis, unspec ified type (Primary Dx); Anemia, unspecified type; Thrombocytopenia (HCC); Adrenal mass, left (HCC); Pericardial effusion Start: 11-17-2024 End: 11-20-2024 Refill Kory Ibarra DO Work Phone: [facility] Start: 11-16-2024 End: 11-16-2024 Subsequent hospital visit by physician Marion Mccann DO Work Phone: [facility] Comment on above: Leukocytosis, unspec ified type; Anemia, unspecified type; Adrenal mass, left (HCC) Start: 11-16-2024 End: 11-16-2024 ambulatory MARION Gallegos SIOBHAN [facility] Start: 11-14-2024 End: 11-14-2024 Follow-up encounter Marion Mccann DO Work Phone: [facility] Comment on above: CBC auto differentia l, Comprehensive Metabolic Panel - [facility], Iron and TIBC, Additional followed-up results: 10 CBC auto differentia l, Comprehensive Metabolic Panel - [facility], Iron and TIBC, Additional followed-up results: 11 Start: 11-09-2024 End: 11-09-2024 Office outpatient new 60 minutes Marion Mccann DO Work Phone: [facility] [place] Comment on above: Leukocytosis, unspec ified type (Primary Dx); Anemia, unspecified type; Thrombocytopenia (HCC); Adrenal mass, left (HCC) Start: 11-09-2024 End: 11-09-2024 ambulatory Marion El Mccann DO Work Phone: [facility] Comment on above: Arrived Start: 11-06-2024 End: 11-09-2024 Telephone encounter Marion Mccann DO Work Phone: [facility] Comment on above: Appointment Request (R/S) Start: 10-20-2024 End: 10-24-2024 Telephone encounter Kory [facility]barra DO [facility] Comment on above: Other (Home care upd ate/missed visit) Start: 10-10-2024 End: 10-18-2024 Telephone encounter Kory Ibarra DO Work Phone: [facility] Comment on above: Other (Potential vas cular peripheral disease) Start: 10-09-2024 End: 10-12-2024 Telephone encounter Benita Moon MD Work Phone: [facility] Sched[facility] Comment on above: Other ([facility]); Missed Appointment (Echocardiogram ) Start: 10-01-2024 End: 12-01-2024 Follow-up encounter Kory Ibarra DO [facility] Comment on above: Bilateral screening mammogram with tomosynthesis Start: 09-28-2024 End: 09-28-2024 Subsequent hospital visit by physician Kory Ibarra DO Work Phone: [facility] Comment on above: Encounter for screen ing mammogram for malignant neoplasm of breast Start: 09-28-2024 End: 09-28-2024 ambulatory KORY IBARRA [facility] Start: 09-22-2024 End: 09-22-2024 Refill Kory Ibarra DO [facility] Start: 09-21-2024 End: 09-22-2024 Telephone encounter Kory Ibarra DO Work Phone: [facility] Comment on above: Orders (Portable Oxy gen Machine) Start: 09-11-2024 End: 09-20-2024 Telephone encounter Kory Ibarra DO Work Phone: [facility] Comment on above: Appointment Request Start: 09-04-2024 End: 09-06-2024 Telephone encounter Kory Ibarra DO Work Phone: [facility] Comment on above: Other Start: 08-28-2024 End: 09-26-2024 Telephone encounter Ya Goel [facility] [place] Comment on above: Appointment Request Start: 08-28-2024 Non-patient / Non-visit Dr. Bindu Ibarra MD [facility] Work Phone: Start: 08-27-2024 Non-patient / Non-visit Dr. Bindu Ibarra MD [facility] Work Phone: Start: 08-26-2024 Non-patient / Non-visit Dr. Bindu Ibarra MD [facility] Work Phone: Start: 08-25-2024 Non-patient / Non-visit Dr. John Paul mora [facility] Work Phone: Start: 08-24-2024 Non-patient / Non-visit Dr. Jemima Poe [facility] Work Phone: Start: 08-24-2024 ambulatory Jemima Poe Facility:[facility] Start: 08-24-2024 End: 08-28-2024 Evaluation and management of inpatient Dr. Jemima Poe DO [facility] Work Phone: Start: 08-23-2024 End: 08-24-2024 Telephone encounter Kory Ibarra DO [facility] Comment on above: Durable Medical Equi pment Start: 08-21-2024 End: 08-22-2024 Orders Only Kory Ibarra DO Work Phone: [facility] Start: 08-20-2024 End: 08-20-2024 Orders Only Kory Ibarra DO Work Phone: [facility] Comment on above: Iron deficiency anem ia, unspecified iron deficiency anemia type (Primary Dx); Thrombocytopenia (HCC) Start: 08-15-2024 End: 08-15-2024 Office outpatient visit 25 minutes Kory Ibarra DO Work Phone: [facility] Comment on above: Iron deficiency anem ia, unspecified iron deficiency anemia type (Primary Dx); Essential hypertension; Anticoagulant long-term use; Hypercholesteremia; 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); Permanent atrial fibrillation (HCC); Chronic obstructive pulmonary disease, unspecified COPD type (HCC); Depression, unspecified depression type Iron deficiency anem ia, unspecified iron deficiency anemia type (Primary Dx); Essential hypertension; Anticoagulant long-term use; Hypercholesteremia; 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); Permanent atrial fibrillation (HCC); Chronic obstructive pulmonary disease, unspecified COPD type (HCC); Depression, unspecified depression type; CHRISTIANNE on CPAP Start: 08-15-2024 End: 08-15-[address] [facility] Start: 08-13-2024 End: 08-27-2024 Follow-up encounter Kory Ibarra DO Work Phone: [facility] Comment on above: IgG, IgA, IgM, Immun ofixation Electrophoresis Start: 08-09-2024 End: 08-09-2024 Subsequent hospital visit by physician [facility] Mar[facility] Elena Work Phone: Radiology Comment on above: Right elbow pain [M2 5.521] Start: 08-09-2024 End: 08-09-2024 ambulatory KORY IBARRA Facility:[facility] Start: 08-09-2024 End: 08-09-2024 Patient encounter procedure Miranda Marion CRUDE OIL DRIVER.MOVE COORDINATOR Work Phone: [facility] Comment on above: Skin erythema (Prima ry Dx); Right elbow pain Start: 08-08-2024 End: 11-07-2024 Follow-up encounter Chelo Huitron CRUDE OIL DRIVER - MOVE COORDINATOR Work Phone: [facility] Donnelly Comment on above: Basic metabolic pane l, CBC auto differential Encounter for screen ing mammogram for malignant neoplasm of breast (Primary Dx) Start: 08-05-2024 End: 11-04-2024 Transcribe Orders Kory Chayito Fred BECKER Work Phone: [facility] Comment on above: Abnormality of plasm a protein, unspecified (Primary Dx) Start: 08-02-2024 End: 08-14-2024 Refill Kory Ibarra DO Work Phone: [facility] Start: 08-01-2024 End: 08-01-2024 Telephone encounter Kory Chayito Fred BECKER Work Phone: [facility] Comment on above: Referral Start: 07-31-2024 End: 07-31-2024 [facility] Start: 07-31-2024 End: 07-31-2024 Office outpatient visit 40 minutes Benita Moon MD Work Phone: [facility] Comment on above: Pulmonary HTN (HCC) (Primary Dx); Essential hypertension Start: 07-17-2024 End: 07-17-2024 Refill Kory Chayito Fred BECKER Work Phone: [facility] Start: 07-03-2024 End: 07-03-2024 Telephone encounter Kory Chayito Fred BECKER Work Phone: [facility] Comment on above: Referral ( Friend) Start: 07-02-2024 End: 07-02-2024 Orders Only Kory Ibarra DO Work Phone: [facility] Start: 06-30-2024 End: 06-30-[address] [facility] Start: 06-23-2024 End: 06-23-2024 Orders Only Kory Ibarra DO Work Phone: [facility] Comment on above: Abnormal protein erasmo ctrophoresis (Primary Dx) Results (06.21.2024) Start: 06-21-2024 End: 06-21-[address] [facility] Start: 06-19-2024 End: 06-19-[address] [facility] Start: 06-19-2024 End: 06-19-2024 Office outpatient visit 25 minutes Kory Ibarra DO Work Phone: [facility] Comment on above: Heart failure with i mproved ejection fraction (HFimpEF) ([facility]) (Primary Dx); Normochromic normocytic anemia; Morbidly obese ([facility]); Chronic obstructive pulmonary disease, unspecified COPD type ([facility]); Longstanding persistent atrial fibrillation ([facility]); Depression, unspecified depression type Start: 06-05-2024 Non-patient / Non-visit Dr. John Paul mora DO -[facility] Work Phone: Start: 06-04-2024 Non-patient / Non-visit [facility]y [facility] Work Phone: Start: 06-03-2024 Non-patient / Non-visit [facility]. Shy [facility] Work Phone: Start: 06-03-2024 ambulatory Jermaine Hagen Facility:[facility] Start: 06-03-2024 Non-patient / Non-visit [facility]. Cady POLANCO [facility] Start: 06-02-2024 ambulatory Wilbert Umanzor Fac ility:[facility] Start: 06-02-2024 End: 06-05-2024 Evaluation and management of inpatient Dr. Wilbert Umanzor DO -Progressive Care Unit Work Phone: Start: 05-31-2024 End: 05-31-2024 ambulatory CHELO HUITRON [facility] Start: 05-31-2024 End: 05-31-2024 Office outpatient visit 25 minutes Chelo Huitron CRUDE OIL DRIVER - MOVE COORDINATOR Work Phone: [facility] Leann Donnelly Comment on above: Permanent atrial fib rillation (HCC) (Primary Dx); Anticoagulant long-term use; Pulmonary HTN (HCC); Nonrheumatic tricuspid valve regurgitation; 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); Nonrheumatic aortic valve insufficiency; Nonrheumatic mitral valve regurgitation; CHRISTIANNE on CPAP; Hospital discharge follow-up Start: 05-25-2024 End: 05-25-2024 Patient encounter procedure Scott MURRY [facility] Work Phone: Start: 05-25-2024 End: 05-25-2024 ambulatory Scott MURRY Facility:[facility] Start: 04-29-2024 End: 05-02-2024 Telephone encounter Niecy Sierra MD Work Phone: [facility] [place] Start: 04-27-2024 End: 05-08-2024 Evaluation and management of inpatient Oswaldo Carpenter DO Work Phone: [facility] Medical Intensive Care Unit MICU T3 Start: 04-27-2024 End: 07-27-2024 Transcribe Orders Kory Ibarra DO Work Phone: [facility] Comment on above: Disorder of adrenal gland, unspecified (HCC) (Primary Dx) Start: 04-27-2024 End: 04-27-2024 Office outpatient visit 40 minutes Benita Moon MD Work Phone: [facility] [place] Comment on above: Permanent atrial fib rillation (HCC) Start: 04-23-2024 End: 04-23-2024 Orders Only Kory Ibarra DO Work Phone: [facility] Leann Fox Comment on above: Venous insufficiency (Primary Dx) Start: 04-18-2024 End: 07-18-2024 Transcribe Orders Kory Ibarra DO Work Phone: [facility] Comment on above: Disorder of adrenal gland, unspecified (HCC) (Primary Dx); Permanent atrial fibrillation (HCC) Start: 04-13-2024 End: 04-14-2024 Telephone encounter Bneita Moon MD Work Phone: [facility] [place] Comment on above: Other (Eliquis) Start: 04-05-2024 End: 04-14-2024 Orders Only Kory Ibarra DO Work Phone: [facility] [place] Comment on above: Permanent atrial fib rillation (HCC) (Primary Dx) Cancelled Appointmen t Start: 04-04-2024 End: 04-04-2024 Telephone encounter Kory Ibarra DO Work Phone: [facility] [place] Comment on above: Advice Only Start: 04-03-2024 End: 04-03-[address] [facility] Start: 04-03-2024 End: 04-03-2024 Office outpatient visit 40 minutes Kory Ibarra DO Work Phone: [facility] [place] Comment on above: Osteoporotic brenda tanya fracture [...] Telephone encounter Kory Ibarra DO Work Phone: [facility] [place] Comment on above: Appointment ( 4 Pt Daughter calling to ask the office /Provider if her Mother could have a SOONER appt than 06.21.24 with Provider since being out of the Hospital she is asking for a call back to discuss) Start: 02-16-2024 End: 02-17-2024 Telephone encounter Brooklyn Baldwin CRUDE OIL DRIVER - MOVE COORDINATOR Work Phone: [facility] [place] Start: 02-15-2024 End: 02-16-2024 Telephone encounter Jamie Jimenez MD Work Phone: [facility] [place] Comment on above: Other (Hospital foll ow up , adrenal mass and microhematuria) Start: 02-14-2024 End: 02-22-2024 Evaluation and management of inpatient Brina Rocha DO Work Phone: [facility] Cardiac Progressive Care Unit PCU 2E Comment on above: Atypical back pain ( Primary Dx); Abdominal pain, unspecified abdominal location; Acute midline low back pain without sciatica; Pulmonary HTN (HCC); Acute respiratory failure, unspecified whether with hypoxia or hypercapnia (HCC); Morbidly obese (HCC) Start: 02-14-2024 End: 02-14-2024 Subsequent hospital visit by physician Curt Last PA-C Work Phone: [facility] CT Comment on above: Acute midline low ba ck pain without sciatica; Bandemia Shortness of breath Start: 02-14-2024 End: 02-14-[address] [facility] Start: 02-14-2024 End: 02-14-[address] [facility] Start: 02-14-2024 End: 02-14-2024 Office outpatient visit 40 minutes Curt Last PA-C Work Phone: [facility] [place] Comment on above: Acute midline low ba ck pain without sciatica (Primary Dx); Tinea cruris; Shortness of breath; Bandemia Start: 02-11-2024 End: 02-11-2024 Subsequent hospital visit by physician [facility] Exam Room [address] [facility] [address] Comment on above: Arrived Start: 02-11-2024 End: 02-11-2024 Emergency department patient visit Elias Dawn DO Work Phone: [facility] ED Comment on above: Acute right-sided lo w back pain without sciatica (Primary Dx); Calculus of gallbladder without cholecystitis without obstruction; Left adrenal mass (HCC); Chronic congestive heart failure, unspecified heart failure type (HCC) Start: 02-09-2024 End: 02-09-2024 Orders Only Kory Stratton Barbrarajwinder DO Work Phone: [facility] [place] Start: 02-04-2024 End: 02-04-2024 Subsequent hospital visit by physician [facility] Radiology Comment on above: Arrived Start: 02-04-2024 End: 02-04-2024 Emergency department patient visit Kellie Maldonado DO Work Phone: [facility] ED Comment on above: Acute right-sided lo w back pain without sciatica (Primary Dx) Start: 02-04-2024 End: 02-04-2024 ambulatory KORY IBARRA Facility:[facility] Start: 02-04-2024 End: 02-04-2024 Patient encounter procedure Pao Elias APRN.MOVE COORDINATOR Work Phone: [facility] Comment on above: Pain (Primary Dx) Start: 01-31-2024 End: 02-04-2024 ambulatory Melanie Aguiar RN [facility] Clinical Communication Start: 01-31-2024 End: 02-04-2024 Patient encounter procedure Melanie Aguiar RN [facility] Clinical Communication Start: 01-25-2024 End: 01-25-2024 Office outpatient visit 25 minutes Chelo Huitron APRN - MOVE COORDINATOR Work Phone: [facility] [place] Comment on above: Permanent atrial fib rillation (HCC) (Primary Dx); Anticoagulant long-term use; Encounter for long-term (current) use of high-risk medication; Pulmonary HTN (HCC); Chronic systolic (congestive) heart failure (HCC); Essential hypertension Start: 01-25-2024 End: 01-25-[address] 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) Start: 12-21-2023 End: 12-21-2023 Office outpatient visit 25 minutes Kory Ibarra DO Work Phone: [facility] Comment on above: Postmenopausal vagin al bleeding (Primary Dx); CHRISTIANNE on CPAP; History of pneumonia; Pulmonary emphysema, unspecified emphysema type (HCC); History of COVID-19; Anticoagulant long-term use; Permanent atrial fibrillation (HCC); Thrombocytopenia (HCC); Nasal bleeding Start: 12-16-2023 End: 12-16-2023 Subsequent hospital visit by physician Kory Ibarra DO Work Phone: [facility] Radiology Comment on above: Leukocytosis, unspec ified type Start: 12-15-2023 End: 12-15-2023 Orders Only Kory Ibarra DO Work Phone: [facility] [place] Comment on above: Leukocytosis, unspec ified type (Primary Dx) Start: 12-13-2023 End: 04-22-2024 ambulatory Chinyere Link RN [facility] Clinical Communication Start: 12-13-2023 End: 04-22-2024 Patient encounter procedure Chinyere Link RN [facility] Clinical Communication Start: 12-13-2023 End: 12-13-2023 Telephone encounter Benita Moon MD Work Phone: [facility] [place] Comment on above: Appointment Request (LEROY) Start: 12-01-2023 End: 12-09-2023 Patient encounter procedure Zaynab Caraballo RN [facility] Clinical Communication Start: 12-01-2023 End: 12-09-2023 ambulatory Zaynab Caraballo RN [facility] Clinical Communication Start: 12-01-2023 End: 12-03-2023 Evaluation and management of inpatient Luna Bustamante Facility:[facility] Start: 11-24-2023 End: 11-25-2023 Refill Kory Ibarra DO Work Phone: [facility] [place] Comment on above: CHRISTIANNE on CPAP; RSV (respiratory syncytial virus infection) Start: 11-17-2023 End: 11-17-2023 Refill Kory Ibarra DO Work Phone: [facility] Start: 11-16-2023 End: 11-17-2023 Telephone encounter Kory Ibarra DO Work Phone: [facility] Comment on above: Labs Only Start: 11-14-2023 End: 11-16-2023 Refill Kory Jimeneza DO Work Phone: [facility] Start: 10-06-2023 End: 10-07-2023 Refill Kory Jimeneza DO Work Phone: [facility] Start: 10-04-2023 End: 10-04-2023 Telephone encounter Benita Moon MD Work Phone: [facility] Comment on above: Other (antibiotic) Start: 09-06-2023 End: 09-07-2023 Refill Kory Jimeneza DO Work Phone: [facility] Start: 08-19-2023 Refill Kory angela DO Work Phone: [facility] Start: 08-11-2023 End: 08-11-2023 Office outpatient visit 40 minutes Benita Moon MD Work Phone: [facility] Comment on above: Palpitations Start: 08-02-2023 End: 08-02-2023 Subsequent hospital visit by physician Kory Ibarra DO Work Phone: [facility] Comment on above: Breast cancer screen ing by mammogram Start: 05-28-2023 ambulatory Delaney Arceo RN [facility] Comment on above: KERRY BERRY RN ( Medication Adherence review per request of payer) Start: 05-26-2023 Refill Kerri Olivia [facility] Start: 05-11-2023 Refill Kory angela DO Work Phone: [facility] Start: 05-07-2023 Orders Only Kory Belle lla DO Work Phone: [facility] Start: 04-13-2023 Telephone encounter Jimbo Khalil MD Work Phone: [facility] Comment on above: Appointment Start: 04-09-2023 Refill Kory pearce DO Work Phone: [facility] Comment on above: CHRISTIANNE on CPAP; RSV (respiratory syncytial virus infection) Start: 03-25-2023 Telephone encounter Kory Thomson micheal DO Work Phone: [facility] Comment on above: Orders (Plastic Surg thong referral) Start: 03-25-2023 End: 03-25-2023 Office outpatient visit 25 minutes Kory Bellestanleybessy DO Work Phone: [facility] Comment on above: Essential hypertensi on (Primary Dx); Hypercholesteremia; Anticoagulant long-term use; Major depressive disorder, recurrent, mild (HCC); Permanent atrial fibrillation (HCC); Eyelid lesion, benign; Cough variant asthma; Breast cancer screening by mammogram Start: 03-17-2023 Refill Chelo quintero CRUDE OIL DRIVER - [employer] Work Phone: [facility] Start: 03-16-2023 Refill Chelo quintero CRUDE OIL DRIVER - MOVE COORDINATOR Work Phone: [facility] Start: 03-06-2023 Refill Kory pearce DO Work Phone: [facility] Comment on above: CHRISTIANNE on CPAP; RSV (respiratory syncytial virus infection) Start: 03-03-2023 Orders Only Kory pearce DO Work Phone: [facility] Start: 02-02-2023 End: 02-02-2023 Office outpatient visit 25 minutes Chelo Huitron CRUDE OIL DRIVER - [employer] Work Phone: [facility] Comment on above: Permanent atrial fib rillation (HCC) (Primary Dx); Anticoagulant long-term use; Encounter for long-term (current) use of high-risk medication; Pulmonary HTN (HCC); CHRISTIANNE on CPAP; 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) Start: 12-29-2022 End: 12-29-2022 Patient encounter procedure Alannah Reed CRUDE OIL DRIVER.MOVE COORDINATOR Work Phone: [facility] Comment on above: Bacterial sinusitis (Primary Dx) Start: 11-24-2022 Refill Benita Sotomayor Work Phone: [facility] Start: 09-22-2022 End: 09-22-2022 Assay of hemosiderin, quant Kory Stratton Fred DO Work Phone: [facility] Start: 09-22-2022 End: 09-22-2022 Patient encounter procedure Kory Stratton Tonybessy DO Work Phone: [facility] Comment on above: Encounter for [facility] annual wellness visit (AWV) in Medicare patient [...] health care facility Start: 09-08-2022 Refill Kory Chayito Barbra pearce DO Work Phone: [facility] Comment on above: CHRISTIANNE on CPAP; RSV (respiratory syncytial virus infection) Start: 07-22-2022 End: 07-22-2022 ambulatory Benita Moon MD Work Phone: [facility] Laboratory Comment on above: Arrived Longstanding persist ent atrial fibrillation (CMS/HCC) (HCC) (Primary Dx) Start: 06-16-2022 Refill Kory Stratton Barbra pearce DO Work Phone: [facility] Comment on above: CHRISTIANNE on CPAP; Cough variant asthma; RSV (respiratory syncytial virus infection) Start: 05-25-2022 Refill Chelo quintero CRUDE OIL DRIVER - MOVE COORDINATOR Work Phone: [facility] Start: 05-05-2022 Orders Only Kory Chayito Barbra pearce DO Work Phone: [facility] Start: 03-24-2022 End: 03-24-2022 Office outpatient visit 25 minutes Kory Ibarra DO Work Phone: [facility] Comment on above: Chronic pain of left knee (Primary Dx); CHRISTIANNE on CPAP; Cough variant asthma; Hyperglycemia; Essential hypertension; Longstanding persistent atrial fibrillation (CMS/HCC) (HCC); Hypercholesteremia Start: 01-22-2022 Non-patient / Non-visit Dr. Wesly Ibarra Work Phone: [facility] Start: 01-21-2022 Non-patient / Non-visit Dr. Wesly Ibarra Work Phone: [facility] Start: 01-20-2022 Non-patient / Non-visit Dr. eWsly Ibarra Work Phone: [facility] Start: 01-19-2022 Non-patient / Non-visit Dr. Wesly Ibarra Work Phone: [facility] Start: 01-18-2022 Non-patient / Non-visit Dr. Wesly Ibarra Work Phone: [facility] Start: 01-18-2022 End: 01-22-2022 Evaluation and management of inpatient [facility] Start: 12-01-2021 ambulatory [facility] Start: 12-01-2021 End: 12-01-2021 Subsequent hospital visit by physician Benita Moon MD Work Phone: [facility] Laboratory Comment on above: Permanent atrial fib rillation (HCC) Start: 11-07-2021 ambulatory [facility] Start: 10-13-2021 End: 10-13-2021 Subsequent hospital visit by physician Benita Moon MD Work Phone: [facility] Echo Comment on above: Chronic atrial fibri llation, unspecified (HCC); Nonrheumatic mitral (valve) insufficiency; Chronic atrial fibrillation (HCC); Nonrheumatic mitral valve regurgitation Start: 09-29-2021 [facility]ulatory [facility] Start: 09-29-2021 End: 09-29-2021 Subsequent hospital visit by physician Gene Maldonado MD Work Phone: [facility] Laboratory Comment on above: Anticoagulant long-t erm use; Chronic atrial fibrillation (HCC) Chronic atrial fibri llation (HCC) Start: 07-24-2021 End: 07-24-2021 Subsequent hospital visit by physician Laura Yang APRN - MOVE COORDINATOR Work Phone: [facility] Comment on above: Mass of upper outer quadrant of right breast Start: 07-02-2021 [facility] Start: 07-02-2021 End: 07-02-2021 Subsequent hospital visit by physician Kory Ibarra DO Work Phone: [facility] Mammography Comment on above: Hx of abnormal mammo gram; Other signs and symptoms in breast Start: 04-30-2021 ambulatory [employer] [facility] Start: 01-20-2021 [facility] Start: 12-30-2020 ambulatory [facility] Start: 12-30-2020 End: 12-30-2020 Subsequent hospital visit by physician Ino Ly MD Work Phone: [facility] Laboratory Comment on above: Chronic atrial fibri llation (HCC) Hypercholesteremia; Essential hypertension Start: 12-17-2020 ambulatory [facility] PROVIDER [facility] Start: 12-17-2020 End: 12-17-2020 Subsequent hospital visit by physician Ino Ly MD Work Phone: [facility] Laboratory Comment on above: Chronic atrial fibri llation (HCC) Start: 10-03-2020 End: 10-03-2020 Subsequent hospital visit by physician Ino Ly MD Work Phone: [facility] Laboratory Comment on above: Chronic atrial fibri [...] Work Phone: [facility] Comment on above: Chronic atrial fibri [...] Work Phone: [facility] Comment on above: Anticoagulant long-t erm [...] visit by physician Ino Ly Work Phone: [facility] Laboratory Comment on above: Atrial fibrillation, unspecified type (HCC) Start: 02-03-2019 End: 02-03-2019 Subsequent hospital visit by physician Ino Ly Work Phone: [facility] Laboratory Comment on above: Atrial fibrillation, unspecified type (HCC) Start: 01-06-2019 End: 01-06-2019 Subsequent hospital visit by physician Ino Ly Work Phone: [facility] Laboratory Comment on above: Atrial fibrillation, unspecified type (HCC) Start: 11-23-2018 End: 11-23-2018 Subsequent hospital visit by physician Kory Ibarra Work Phone: [facility] [facility] Comment on above: Breast cancer screen ing Start: 10-25-2018 End: 10-25-2018 Subsequent hospital visit by physician Ino Ly Work Phone: [facility] Laboratory Comment on above: Chronic atrial fibri llation (HCC) Start: 06-08-2017 Ambulatory [facility] [facility] Procedures Date Procedure Procedure Detail Performing Clinician Start: 12-20-2024 Diagnostic bone murphy ow biopsies & aspirations Marion Mccann DO Work Phone: Start: 12-20-2024 Blood count complete auto&auto difrntl wbc Ovidio Loaiza MD Work Phone: Start: 12-20-2024 Manual differential performed [Presence] in Blood Ovidio Loaiza MD Work Phone: Start: 12-19-2024 C-reactive protein Luis is Moneypenny PA-C Work Phone: Start: 12-19-2024 Sedimentation rate r bc automated Josselyn Bhardwaj PA-C Work Phone: Start: 12-06-2024 Follow-up visit KORY IBARRA Start: 12-04-2024 Echo tthrc r-t 2d w/ wom-mode compl spec&colr d Beniat Moon MD Work Phone: Start: 11-21-2024 Follow-up visit KORY IBARRA Start: 11-09-2024 Cyanocobalamin vitamin b-12 Marion Mccann DO Work Phone: Start: 11-09-2024 Flow cytometry cell surf marker techl only ea Marion Mccann DO Work Phone: Start: 11-09-2024 Immunofixj electroph oresis serum Marion Mccann DO Work Phone: Start: 11-09-2024 K/L QNT FREE LIGHT C HAINS WITH RATIO (BKR QUEST) Marion Mccann DO Work Phone: Start: 11-09-2024 Follow-up visit KORY IBARRA Start: 09-28-2024 End: 09-28-2024 Screening digital breast tomosynthesis bi Kory Ibarra DO Work Phone: Start: 08-28-[address] Davis Irene DO Work Phone: Start: 08-26-2024 SARS-CoV-2, Influenz a & RSV (PCR) Dr. Davis Irene DO Work Phone: Start: 08-25-[address] Davis Irene DO Work Phone: Start: 08-25-2024 Serum inorganic phos phate measurement Dr. Davis Irene DO Work Phone: Start: 08-25-2024 Vitamin D, 25-hydrox y measurement Dr. Davis Irene DO Work Phone: Comment on above: Vitamin D StatusDefi ciency: <20 ng/mL (50nmol/L)Insufficiency: 20-30 ng/mL (50-75 nmol/L)Sufficiency: 30-100 ng/mL (75-250 nmol/L)Toxicity: >100 ng/mL (>250 nmol/L) Start: 08-24-2024 CT of chest without contrast Dr. Davis Irene DO Work Phone: Start: 08-24-2024 X-ray of chest, PA a nd lateral views Dr. Davis Irene DO Work Phone: Start: 08-24-2024 Urnls dip stick/tabl et reagent auto microscopy Dr. Davis Irene DO Work Phone: Start: 08-24-[address] Davis Irene DO Work Phone: Start: 08-24-2024 Legionella pneumophi la antigen assay Dr. Davis Irene DO Work Phone: Start: 08-24-2024 End: 08-24-2024 Streptococcus pneumoniae antigen assay Dr. Davis Irene DO Work Phone: Start: 08-15-2024 Follow-up visit KORY BELLERAJWINDER Start: 08-09-2024 Radex elbow 2 views Satya john paul Phil [employer]UDE OIL DRIVER.MOVE COORDINATOR Work Phone: Start: 07-31-2024 Ecg routine ecg w/le ast 12 lds w/i&r Benita Moon MD Work Phone: Start: 07-31-2024 Follow-up visit KORY IBARRA Start: 06-19-2024 Follow-up visit KORY IBARRA Start: 06-05-[address] Davis Irene DO Work Phone: Start: 06-02-[address] Laquita Irene DO Work Phone: Start: 06-02-[address] Davis Irene DO Work Phone: Start: 06-02-2024 SARS-CoV-2, Influenz a & RSV (PCR) Dr. Davis Irene DO Work Phone: Start: 06-02-2024 Plain chest X-ray Dr. Gabby Irene DO Work Phone: Start: 05-31-2024 Follow-up visit KORY BELLESTANLEYBessy Start: 05-08-2024 HOME O2 EVAL (DESATU RATION SCREEN) Ronel Blount DO Work Phone: Start: 05-08-2024 Echo [...] 05-04-2024 Radiologic exam ches t single view Silvino Zabala MD Work Phone: Start: 05-04-2024 Calcium [...] Basic metabolic pane l calcium total Alin Arnav POLANCO Work Phone: Start: 05-03-2024 Hepatitis c antibody Hu ntpravin Zabala MD Work Phone: Start: 05-03-2024 Blood gases any comb ination ph pco2 po2 co2 hco3 Silvino Zabala MD Work Phone: Start: 05-03-2024 Iadna s aureus methi cillin resist amp probe tq Silvino Zabala MD Work Phone: Start: 05-03-2024 Blood gases any comb ination ph pco2 po2 co2 hco3 Brayden Cuevas MD Work Phone: Start: 05-03-2024 Basic metabolic pane l calcium total Kwan Greyson Aviles DO Work Phone: Start: 05-02-2024 Blood [...] Work Phone: Start: 05-02-2024 Fibrinogen activity Chico Saravia MD Work Phone: Start: 05-02-2024 HC [...] ast 12 lds trcg only w/o i&r Osatino Meléndez MD Work Phone: Start: 04-30-2024 Basic metabolic pane l calcium total Kwan Aviles DO Work Phone: Start: 04-30-2024 Ecg routine ecg w/le ast 12 lds trcg only w/o i&r Ana Meléndez MD Work Phone: Start: 04-29-2024 Basic metabolic [...] 04-28-2024 Urinalysis complete panel - Urine Joaquin MURRY-C Work Phone: Start: 04-28-2024 Urnls dip stick/tabl et reagent auto microscopy Joaquin MURRY-C Work Phone: Start: 04-28-2024 Assay of troponin quantitative Joaquin MURRY-C Work Phone: Start: 04-27-2024 Ct abdomen & pelvis w/o contrast material Oswaldo R Carpenter DO Work Phone: Start: 04-27-2024 Assay of troponin quantitative Joaquin MURRY-C Work Phone: Start: 04-27-2024 Radiologic exam ches t single view Oswaldo R Carpenter DO Work Phone: Start: 04-27-2024 Basic metabolic pane l calcium total Joaquin MURRY-C Work Phone: Start: 04-27-2024 Drug screen quantita tive digoxin total Joaquin MURRY-C Work Phone: Start: 04-27-2024 Manual Differential panel - Blood Joaquin MURRY-C Work Phone: Start: 04-27-2024 Ecg routine ecg w/le ast 12 lds trcg only w/o i&r Joaquin MURRY-C Work Phone: Start: 04-27-2024 Ecg routine ecg [...] 02-17-2024 End: 02-18-2024 Comprehensive metabolic panel Ana Meléndez MD Work Phone: Start: 02-17-2024 End: 02-18-2024 Manual Differential panel - Blood Ana Meléndez MD Work Phone: Start: 02-16-2024 Comprehensive metabo lic panel Ana Meléndez MD Work Phone: Start: 02-16-2024 Manual Differential panel - Blood Ana Meléndez MD Work Phone: Start: 02-15-2024 Ecg routine ecg w/le ast 12 lds trcg only w/o i&r Ana Meléndez MD Work Phone: Start: 02-15-2024 C-reactive protein [...] abdomen & pelvis w/o contrast material Elias Martinez Dawn DO Work Phone: Start: 02-11-2024 Comprehensive metabo lic panel Elias Martinez Nesheim DO Work Phone: Start: 02-11-2024 Manual differential performed [Presence] in Blood Elias Martinez Nesheim DO Work Phone: Start: 02-11-2024 Urinalysis complete panel - Urine Elias Martinez Nesheim DO Work Phone: Start: 02-11-2024 Urnls dip stick/tabl et reagent auto microscopy Elias Martinez Nesheim DO Work Phone: Start: 02-04-2024 End: 02-04-2024 Radex spine lumbosacral 2/3 views Kellie Maldonado DO Work Phone: Start: 01-25-2024 Follow-up visit KORY IBARRA Start: 12-16-2023 Radiologic [...] Diagnostic mammograp hy computer-aided detcj uni Laura Yang CRUDE OIL DRIVER - MOVE COORDINATOR Work Phone: Start: 07-24-[address] MO[address] BIOPSY Laura Yang [employer]UDE OIL DRIVER - MOVE COORDINATOR Work Phone: Start: 07-02-2021 End: 07-02-2021 Diagnostic mammography computer-aided detcj bi Kory Ibarra DO Work Phone: Start: 07-01-2021 Lipid 1996 panel - S twyla or Plasma Kory Ibarra DO Work Phone: Start: 12-30-2020 Manual Differential panel - Blood Kory Ibarra DO Work Phone: Start: 12-30-2020 End: 12-30-2020 Prothrombin time Ino Ly MD Work Phone: Start: 12-30-2020 Lipid panel Kory Stratton Alix etrilla DO Work Phone: Start: 12-17-2020 Prothrombin time John Ly MD Work Phone: Start: 10-03-2020 Prothrombin time Stepanup Ly MD Work Phone: Start: 09-24-2020 Prothrombin time Stepanup Ly MD Work Phone: Start: 08-16-2020 Prothrombin time John Ly MD Work Phone: Start: 05-23-2020 Prothrombin time Stephe n Kirk Ly Work Phone: Start: 05-15-2020 Prothrombin time Stephe n Kirk Ly Work Phone: Start: 04-29-2020 Prothrombin time Stephe n Kirk Ly Work Phone: Start: 04-11-2020 Prothrombin time Stephe n Kirk Ly Work Phone: Start: 04-02-2020 Prothrombin time Stephe n Kirk Ly Work Phone: Start: 03-28-2020 Prothrombin time Stephe n Kirk Ly Work Phone: Start: 03-18-2020 Prothrombin time Stephe n Kirk Ly Work Phone: Start: 03-12-2020 Prothrombin time Stephe n W Malachi Work Phone: Start: 02-20-2020 Prothrombin time Stephe n W Malachi Work Phone: Start: 02-01-2020 Prothrombin time Stephe n W [place] Work Phone: Start: 01-25-2020 Prothrombin time Stephe n [place] Work Phone: Start: 11-27-2019 Diagnostic mammograp hy computer-aided detcj bi Kory Ibarra Work Phone: Start: 09-21-2019 Prothrombin time Stephe n W [place] Work Phone: Start: 07-04-2019 Prothrombin time Stephe n W [place] Work Phone: Start: 05-19-2019 Assay of thyroid sti mulating hormone tsh Kory Ibarra Work Phone: Start: 05-19-2019 Blood count complete auto&auto difrntl wbc Kory Ibarra Work Phone: Start: 05-19-2019 Comprehensive metabo lic panel Kory Ibarra Work Phone: Start: 05-19-2019 Lipid panel Kory Thomson etrillbessy Work Phone: Start: 05-19-2019 Prothrombin time Kory Ibarra Work Phone: Start: 04-25-2019 Prothrombin time Stephe n W Malachi Work Phone: Start: 03-20-2019 Prothrombin time Stephe n Kirk Ly MD Work Phone: Start: 02-06-2019 Prothrombin time Stephe n W [place] Work Phone: Start: 02-03-2019 Prothrombin time Stephe n W [place] Work Phone: Start: 01-06-2019 Prothrombin time Stephe n W Mal[place] Work Phone: Start: 10-25-2018 Prothrombin time Stephe n W [place] Work Phone: Start: 04-06-2017 Colonoscopy Kory landeros DO Work Phone: Respiratory Panel (PCR) Dr. Kory Ibarra Work Phone: SARS-CoV-2 & FLU Ant igen (Rapid) Streptococcus pneumo niae Antigen (M Dr. Kory Ibarra Work Phone: Plan of Treatment Date Care Activity Detail Author Start: 03-25-2028 Lipid panel [facility] Start: 09-23-2027 [facility] Start: 08-06-2027 Diabetes Screening Diabetes Screening [facility] Start: 04-06-2027 Colon cancer screen colonoscopy Colon cancer screen colonoscopy [place] Start: 04-06-2027 Screening for malignant neoplasm of colon [facility] Start: 03-24-2027 Lipid panel Lipid Panel [facility] Start: 07-01-2026 Lipid panel Lipid Panel [facility] Start: 03-25-2026 Diabetes Screening Diabetes Screening [facility] Start: 12-19-2025 Creatinine measurement Creatinine Level [facility] Start: 12-19-2025 Potassium measurement Potassium Level [facility] Start: 12-04-2025 Echocardiography Echocardiogram [facility] Start: 11-09-2025 End: 11-09-2025 Immunofixation Electrophoresis Immunofixation Electrophoresis Lab Routine Leukocytosis, unspecified type Anemia, unspecified type Thrombocytopenia (HCC) Expected: 11/09/2025 (Approximate), Expires: 11/09/2025 [facility] Comment on above: Expected: 11/09/2025 (Approximate), Expi res: 11/09/2025 Start: 09-28-2025 Screening for malignant neoplasm of breast Mammogram [facility] Start: 09-22-2025 Diabetes Screening Diabetes Screening [facility] Start: 08-05-2025 Creatinine measurement Creatinine Level [facility] Start: 08-05-2025 Potassium measurement Potassium Level [facility] Start: 06-21-2025 [facility] Start: 06-21-2025 Potassium measurement Potassium Level [facility] Start: 05-12-2025 End: 11-09-2025 K/L Qnt Free Light Chains with Ratio (BKR QUEST) K/L Qnt Free Light Chains with Ratio (BKR QUEST) Lab Routine Leukocytosis, unspecified type Anemia, unspecified type Thrombocytopenia (HCC) Expected: 05/12/2025 (Approximate), Expires: 11/09/2025 [facility] Comment on above: Expected: 05/12/2025 (Approximate), Expi res: 11/09/2025 Start: 05-08-2025 Creatinine measurement [facility] Start: 05-08-2025 Echocardiography Echocardiogram [facility] Start: 05-08-2025 Potassium measurement [facility] Start: 05-08-2025 [facility] Start: 05-05-2025 Creatinine measurement Creatinine Level [facility] Start: 05-05-2025 Potassium measurement Potassium Level [facility] Start: 05-03-2025 Creatinine measurement Creatinine Level [facility] Start: 05-03-2025 Potassium measurement Potassium Level [facility] Start: 04-27-2025 Creatinine measurement Creatinine Level [facility] Start: 04-27-2025 Potassium measurement Potassium Level [facility] Start: 04-18-2025 Creatinine measurement Creatinine Level [facility] Start: 04-18-2025 Potassium measurement Potassium Level [facility] Start: 04-03-2025 Creatinine measurement Creatinine Level [facility] Start: 04-03-2025 Diabetes mellitus screening [facility] Start: 04-03-2025 Potassium measurement Potassium Level [facility] Start: 03-20-2025 End: 03-20-2025 Patient encounter procedure 03/20/2025 10:15 AM EST Office Visit [facility] [address] [place] [address] [place] [phone] Marion Mccann DO [address] [place] [address] [place] [address] [facility] [place] Start: 03-12-2025 End: 01-10-2026 CBC W Auto Differential panel - Blood CBC auto differential Lab Routine 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) Expected: 03/12/2025 (Approximate), Expires: 01/10/2026 [facility] Work Phone: Comment on above: Expected: 03/12/2025 (Approximate), Expi res: 01/10/2026 Start: 02-28-2025 End: 02-28-2025 Patient encounter procedure 02/28/2025 11:00 AM EST Office Visit [address] [place] [address] Benita Moon MD [address] [facility] [address] [place] [address] [facility] Start: 02-21-2025 Creatinine measurement Creatinine Level [facility] Start: 02-21-2025 Potassium measurement Potassium Level [facility] Start: 02-16-2025 Creatinine measurement Creatinine Level [facility] Start: 02-16-2025 Echocardiography Echocardiogram [facility] Start: 02-16-2025 Potassium measurement Potassium Level [facility] Start: 02-15-2025 Creatinine measurement Creatinine Level [facility] Start: 02-15-2025 Potassium measurement Potassium Level [facility] Start: 02-13-2025 Creatinine measurement Creatinine Level [facility] Start: 02-13-2025 Potassium measurement Potassium Level [facility] Start: 02-10-2025 Creatinine measurement Creatinine Level [facility] Start: 02-10-2025 Potassium measurement Potassium Level [facility] Start: 01-26-2025 End: 01-26-2025 Patient encounter procedure 01/26/2025 9:00 AM EST Office Visit [facility] [address] [place] [address] Josselyn Bhardwaj PA-C [address] [facility] [address] [place] [address] [facility] Start: 01-25-2025 End: 01-25-2025 Patient encounter procedure 01/25/2025 9:20 AM EST Office Visit [facility] [address] [facility] [address] [place] [address] Greyson Cifuentes MD [address] [facility] [address] [place] [address] [facility] Start: 01-15-2025 End: 01-15-2025 Patient encounter procedure 01/15/2025 1:00 PM EST Office Visit [facility] [address] [place] [address] Kory Ibarra Chayito, [address] [place] [phone] [facility] Start: 01-10-2025 End: 01-10-2025 Patient encounter procedure 01/10/2025 2:30 PM EDT Office Visit [facility] [place] [address] [place] [address] [place] [phone] Marion Mccann DO [address] [place] [address] [place], [place] [id number] [facility] [place] Start: 01-09-2025 End: 01-09-2025 Patient encounter procedure 01/09/2025 10:00 AM EDT Office Visit [facility] [place] [address] [place] [phone] Josselyn Bhardwaj PA-C [address] [address] [facility] [place] Start: 12-20-2024 End: 12-20-2024 ambulatory [facility] Start: 12-20-2024 End: 12-20-2024 Patient encounter procedure 12/20/2024 8:00 AM EDT Appointment [facility] [address] [place] [address] Marion Mccann DO [address] [place] [address] [facility] [address] [facility] Start: 12-19-2024 End: 12-19-2025 Basic metabolic 1998 panel - Serum or Plasma Basic metabolic panel Lab Routine Chronic heart failure with mildly reduced ejection fraction (HFmrEF, 41-49%) (HCC) Expected: 12/19/2024 (Approximate), Expires: 12/19/2025 [facility] Work Phone: Comment on above: Expected: 12/19/2024 (Approximate), Expi res: 12/19/2025 Start: 12-19-2024 Depression Monitoring Depression Monitoring [facility] Start: 12-13-2024 End: 12-06-2025 Basic metabolic 1998 panel - Serum or Plasma Basic metabolic panel Lab Routine Chronic heart failure with mildly reduced ejection fraction (HFmrEF, 41-49%) (HCC) Expected: 12/13/2024 (Approximate), Expires: 12/06/2025 [facility] Work Phone: Comment on above: Expected: 12/13/2024 (Approximate), Expi res: 12/06/2025 Start: 12-07-2024 End: 12-07-2024 Patient encounter procedure 12/07/2024 12:40 PM EDT Office Visit [facility] [place] [address] [place] [address] [place] [phone] Benita Moon MD [address] [place], [place] [id number] [facility] Start: 12-04-2024 End: 12-04-2024 Patient encounter procedure 12/04/2024 2:00 PM EDT Appointment [facility] [place] [facility] [address] [place] [phone] Benita Moon MD [address] [place] [address] [facility] [place] [facility] Start: 11-27-2024 End: 11-27-2024 Clinical Support 11/27/2024 2:00 PM EDT Clinical Support [facility] [address] [place] [phone] [facility] Start: 11-24-2024 End: 09-11-2026 CBC W Auto Differential panel - Blood CBC auto differential Lab STAT Adrenal mass, left (HCC) Thrombocytopenia (HCC) Expected: 11/24/2024 (Approximate), Expires: 11/23/2025 [facility] Work Phone: Comment on above: Expected: 11/24/2024 (Approximate), Expi res: 11/23/2025 Start: 11-21-2024 End: 11-21-2025 Bone marrow exam Bone marrow exam Pathology and Cytology Routine Leukocytosis, unspecified type Anemia, unspecified type Thrombocytopenia (HCC) Expected: 11/21/2024 (Approximate), Expires: 11/21/2025 [facility] Work Phone: Comment on above: Expected: 11/21/2024 (Approximate), Expi res: 11/21/2025 Start: 11-21-2024 End: 11-21-2024 Patient encounter procedure 11/21/2024 9:00 AM EDT Office Visit [facility] [place] [address] [place] [phone] Marion Mccann DO [address] [place], [place] [phone] [facility] [place] Start: 11-20-2024 End: 11-20-2024 Patient encounter procedure 11/20/2024 1:00 PM EDT Appointment [facility] [place] [facility] [address] [place] [phone] Benita Moon MD [address] [place] [address] [address] [place] [address] [facility] [place] [facility] Start: 11-16-2024 Subsequent hospital visit by physician 11/16/2024 10:45 AM EDT Hospital Encounter [facility] [address] [place] [phone] Marion Mccann DO [address] [place] [address] [facility] [address] Start: 11-13-2024 COVID-19 Vaccine ( season) COVID-19 Vaccine ( season) [facility] Start: 11-13-2024 Influenza vaccination Influenza Vaccine (#1) [facility] Start: 11-09-2024 End: 11-09-2025 BCR-ABL1 t(9;22), Blood [facility] Comment on above: Expected: 11/09/2024 (Approximate), Expi res: 11/09/2025 Start: 11-09-2024 End: 11-09-2025 CT Abdomen and Pelvis WO and W contrast IV CT chest abdomen pelvis with contrast Imaging Routine Leukocytosis, unspecified type Anemia, unspecified type Adrenal mass, left (HCC) Expected: 11/09/2024, Expires: 11/09/2025 [facility] Comment on above: Expected: 11/09/2024, Expires: Start: 11-09-2024 End: 11-09-2025 Flow cytometry [facility] Comment on above: Expected: 11/09/2024 (Approximate), Expi res: 11/09/2025 Start: 11-09-2024 End: 11-09-2024 Patient encounter procedure 11/09/2024 2:00 PM EDT Office Visit [facility] [address] [place] [address] [place] [phone] Marion Mccann DO [address] [place] [address] [place] [address] [facility] [place] Start: 11-09-2024 End: 11-09-2025 Peripheral Blood Smear [facility] Work Phone: Comment on above: Expected: 11/09/2024 (Approximate), Expi res: 11/09/2025 Start: 11-09-2024 End: 11-09-2025 Protein, Total and Protein Electrophoresis [facility] Comment on above: Expected: 11/09/2024 (Approximate), Expi res: 11/09/2025 Start: 11-07-2024 End: 11-07-2024 Patient encounter procedure 11/07/2024 10:15 AM EDT Office Visit [facility] [place] [address] [place] [address] [place] [phone] Marion Mccann DO [address] [place] [address] [facility] [place] Start: 10-31-2024 End: 10-31-2024 Patient encounter procedure 10/31/2024 1:00 PM EDT Appointment [facility] [address] [place] [address] Benita Moon MD [address] [place] [address] [address] [place] [address] [facility] Start: 10-04-2024 End: 10-04-2024 Patient encounter procedure 10/04/2024 9:00 AM EDT Office Visit [facility] [place] [address] [place] [address] Marion Mccann DO [address] [place] [address] [facility] [place] Start: 09-28-2024 End: 09-28-2024 Patient encounter procedure 09/28/2024 3:00 PM EDT Appointment [facility] [address] [place] [address] Kory Ibarra, DO [address] [place] [phone] [facility] Start: 09-26-2024 End: 09-26-2024 Patient encounter procedure 09/26/2024 2:40 PM EDT Appointment [facility] [address] [place] [address] Kory Ibarra, DO [address] [place] [address] [place] [address] [facility] Start: 09-22-2024 End: 09-22-2024 Patient encounter procedure 09/22/2024 11:20 AM EDT Appointment [facility] [address] [place] [address] Kory Ibarra, [address] [place] [address] [place] [address] [facility] Start: 09-19-2024 End: 08-20-2025 Basic metabolic 1998 panel - Serum or Plasma Basic metabolic panel Lab Routine Thrombocytopenia (HCC) Expected: 09/19/2024 (Approximate), Expires: 08/20/2025 [facility] Comment on above: Expected: 09/19/2024 (Approximate), Expi res: 08/20/2025 Start: 09-19-2024 End: 08-20-2025 CBC W Auto Differential panel - Blood CBC auto differential Lab Routine Thrombocytopenia (HCC) Expected: 09/19/2024 (Approximate), Expires: 08/20/2025 [facility] Comment on above: Expected: 09/19/2024 (Approximate), Expi res: 08/20/2025 Start: 09-19-2024 End: 08-20-2025 K/L Qnt Free Light Chains with Ratio K/L Qnt Free Light Chains with Ratio Lab Routine Thrombocytopenia (HCC) Expected: 09/19/2024 (Approximate), Expires: 08/20/2025 [facility] Work Phone: Comment on above: Expected: 09/19/2024 (Approximate), Expi res: 08/20/2025 Start: 09-18-2024 End: 09-18-2024 Patient encounter procedure 09/18/2024 2:00 PM EDT Appointment [facility] [address] [place] [address] Kory Ibarra, [address] [place] [address] [place] [address] [facility] Start: 09-13-2024 End: 09-13-2024 Patient encounter procedure 09/13/2024 10:00 AM EDT Office Visit [facility] [address] [place] [address] Kory Ibarra DO [address] [place] [address] [facility] Start: 08-31-2024 Continuous positive airway pressure ventilation treatment [facility] Start: 08-30-2024 Continuous positive airway pressure ventilation treatment [facility] Start: 08-29-2024 Continuous positive airway pressure ventilation treatment [facility] Start: 08-28-2024 Continuous positive airway pressure ventilation treatment [facility] Start: 08-28-2024 Patient discharge [facility] Start: 08-27-2024 Continuous positive airway pressure ventilation treatment [facility] Start: 08-26-2024 Continuous positive airway pressure ventilation treatment [facility] Start: 08-25-2024 Continuous positive airway pressure ventilation treatment [facility] Start: 08-25-2024 Referral to service [facility] Start: 08-25-2024 Respiratory secretion precautions [facility] Start: 08-25-2024 Following clinical pathway protocol [facility] Start: 08-25-2024 Ambulation without limitation [facility] Start: 08-25-2024 Assessment of risk of venous thromboembolism [facility] Start: 08-25-2024 Catheterization of vein [facility] Start: 08-25-2024 Elevation of head of bed [facility] Start: 08-25-2024 Inhalation therapy procedure [facility] Start: 08-25-2024 Insertion of catheter into peripheral vein [facility] Start: 08-25-2024 Measuring intake and output [facility] Start: 08-25-2024 Oxygen therapy [facility] Start: 08-25-2024 Patient education [facility] Start: 08-25-2024 Physiotherapy of chest [facility] Start: 08-25-2024 Providing care according to standard [facility] Start: 08-25-2024 Referral to occupational therapist [facility] Start: 08-25-2024 Referral to service [facility] Start: 08-25-2024 End: 08-25-2024 [facility] Start: 08-24-2024 Hospital admission, emergency, from emergency room, medical nature [facility] Start: 08-24-2024 Bacteria identified in Sputum by Culture [facility] Start: 08-24-2024 Verification routine [facility] Start: 08-24-2024 Admission procedure [facility] Start: 08-24-2024 CT Chest WO contrast [facility] Start: 08-24-2024 CT of chest without contrast Chest without Contrast [facility] Start: 08-24-2024 Continuous positive airway pressure ventilation treatment [facility] Start: 08-24-2024 Respiratory pathogens DNA and RNA panel - Respiratory specimen by STEPHANIE with probe detection [facility] Start: 08-24-2024 Taking nasal swab [facility] Start: 08-24-2024 Streptococcus pneumoniae antigen assay [facility] Start: 08-24-2024 Legionella Antigen Legionella Antigen [facility] Start: 08-24-2024 Streptococcus pneumoniae Antigen (M Streptococcus pneumoniae Antigen (M [facility] Start: 08-23-2024 End: 08-23-2024 Patient encounter procedure 08/23/2024 2:00 PM EDT Appointment [facility] Non-Invasive Cardiology [address] [place] [address] Benita Moon MD [address] [place] [address] [address] [place] [address] [facility] Non-Invasive Cardiology Start: 08-15-2024 End: 08-15-2024 Patient encounter procedure 08/15/2024 10:00 AM EDT Office Visit [facility] [address] [place] [address] Kory Ibarra DO [address] [place] [address] [facility] [place] Start: 08-01-2024 Screening for malignant neoplasm of breast [facility] Start: 07-31-2024 End: 07-31-2026 US Heart Transthoracic Transthoracic echocardiogram (TTE) complete with contrast, bubble, strain, and 3D PRN CV Echocardiography Routine Pulmonary HTN (HCC) Expected: 07/31/2024 (Approximate), Expires: 07/31/2026 [facility] Work Phone: Comment on above: Expected: 07/31/2024 (Approximate), Expi res: 07/31/2026 Start: 07-31-2024 End: 07-31-2024 Patient encounter procedure 07/31/2024 11:20 AM EDT Office Visit [address] [place] [address] Benita Moon MD [address] [place] [address] [address] [place] [address] [facility] Start: 06-27-2024 End: 06-27-2024 Patient encounter procedure 06/27/2024 2:20 PM EDT Procedure Visit [facility] [address] [place] [address] Jamie Jimenez MD [address] [place] [address] [facility] Start: 06-23-2024 End: 06-23-2025 Immunofixation Electrophoresis Immunofixation Electrophoresis Lab Routine Abnormal protein electrophoresis Expected: 06/23/2024 (Approximate), Expires: 06/23/2025 [facility] Comment on above: Expected: 06/23/2024 (Approximate), Expi res: 06/23/2025 Start: 06-23-2024 End: 06-23-2025 Immunoglobulins, IgG, IgA, IgM Immunoglobulins, IgG, IgA, IgM Lab Routine Abnormal protein electrophoresis Expected: 06/23/2024 (Approximate), Expires: 06/23/2025 [facility] Work Phone: Comment on above: Expected: 06/23/2024 (Approximate), Expi res: 06/23/2025 Start: 06-21-2024 End: 06-21-2024 ambulatory [facility] [place] Start: 06-21-2024 End: 06-21-2024 Patient encounter procedure 06/21/2024 10:30 AM EDT [facility] [address] [place] [address] Kory Ibarra DO [address] [place] [address] [facility] [place] Start: 06-20-2024 Depression Monitoring Depression Monitoring [facility] Start: 06-20-2024 [facility] Start: 06-19-2024 End: 06-19-2025 CBC W Auto Differential panel - Blood CBC auto differential Lab Routine Normochromic normocytic anemia Expected: 06/19/2024 (Approximate), Expires: 06/19/2025 [facility] Comment on above: Expected: 06/19/2024 (Approximate), Expi res: 06/19/2025 Start: 06-19-2024 End: 06-19-2025 Cobalamin (Vitamin B12) [Mass/volume] in Serum or Plasma Vitamin B12 Lab Routine Normochromic normocytic anemia Expected: 06/19/2024 (Approximate), Expires: 06/19/2025 [facility] Comment on above: Expected: 06/19/2024 (Approximate), Expi res: 06/19/2025 Start: 06-19-2024 End: 06-19-2025 Comprehensive metabolic 1998 panel - Serum or Plasma Comprehensive metabolic panel Lab Routine Normochromic normocytic anemia Expected: 06/19/2024 (Approximate), Expires: 06/19/2025 [facility] Comment on above: Expected: 06/19/2024 (Approximate), Expi res: 06/19/2025 Start: 06-19-2024 End: 06-19-2025 Ferritin [Mass/volume] in Serum or Plasma Ferritin Lab Routine Normochromic normocytic anemia Expected: 06/19/2024 (Approximate), Expires: 06/19/2025 [facility] Work Phone: Comment on above: Expected: 06/19/2024 (Approximate), Expi res: 06/19/2025 Start: 06-19-2024 End: 06-19-2025 Iron and Iron binding capacity panel - Serum or Plasma Iron and TIBC Lab Routine Normochromic normocytic anemia Expected: 06/19/2024 (Approximate), Expires: 06/19/2025 [facility] Comment on above: Expected: 06/19/2024 (Approximate), Expi res: 06/19/2025 Start: 06-05-2024 Patient discharge [facility] Start: 06-03-2024 Referral to service [facility] Start: 06-02-2024 Ambulation without limitation [facility] Start: 06-02-2024 Assessment of risk of venous thromboembolism [facility] Start: 06-02-2024 Inhalation therapy procedure [facility] Start: 06-02-2024 Insertion of catheter into peripheral vein [facility] Start: 06-02-2024 Measuring intake and output [facility] Start: 06-02-2024 Oxygen therapy [facility] Start: 06-02-2024 Providing care according to standard [facility] Start: 06-02-2024 Referral to occupational therapist [facility] Start: 06-02-2024 Referral to service [facility] Start: 06-02-2024 [facility] Start: 06-02-2024 Following clinical pathway protocol [facility] Start: 06-02-2024 [facility] Start: 06-02-2024 Bacteria identified in Blood by Culture Blood Culture [facility] Start: 06-02-2024 Blood culture Blood Culture [facility] Start: 06-02-2024 Verification routine [facility] Start: 06-02-2024 Respiratory pathogens DNA and RNA panel - Respiratory specimen by STEPHANIE with probe detection [facility] Start: 06-02-2024 Admission procedure [facility] Start: 06-02-2024 Hospital admission, emergency, from emergency room, medical nature [facility] Start: 06-02-2024 [facility] Start: 06-02-2024 Continuous pulse oximetry [facility] Start: 06-02-2024 End: 06-02-2024 [facility] Start: 06-02-2024 Dual pressure spontaneous ventilation support [facility] Start: 06-02-2024 Patient referral to dietitian [facility] Start: 05-31-2024 End: 05-31-2025 Basic metabolic 1998 panel - Serum or Plasma Basic metabolic panel Lab Routine Permanent atrial fibrillation (HCC) Anticoagulant long-term use Expected: 05/31/2024 (Approximate), Expires: 05/31/2025 [facility] Comment on above: Expected: 05/31/2024 (Approximate), Expi res: 05/31/2025 Start: 05-31-2024 End: 05-31-2025 CBC W Auto Differential panel - Blood CBC auto differential Lab Routine Permanent atrial fibrillation (HCC) Anticoagulant long-term use Expected: 05/31/2024 (Approximate), Expires: 05/31/2025 [facility] Work Phone: Comment on above: Expected: 05/31/2024 (Approximate), Expi res: 05/31/2025 Start: 05-31-2024 End: 05-31-2024 ambulatory [facility] [place] Start: 05-31-2024 End: 05-31-2024 Patient encounter procedure 05/31/2024 10:00 AM EDT Office Visit [facility] [place] [address] [place] [address] Chelo Huitron, CRUDE OIL DRIVER - MOVE COORDINATOR [address] [place] [address] [facility] [place] Start: 05-21-2024 End: 04-23-2025 Basic metabolic 1998 panel - Serum or Plasma Basic metabolic panel Lab Routine Venous insufficiency Expected: 05/21/2024 (Approximate), Expires: 04/23/2025 [facility] Work Phone: Comment on above: Expected: 05/21/2024 (Approximate), Expi res: 04/23/2025 Start: 05-08-2024 End: 05-01-2025 Basic metabolic 1998 panel - Serum or Plasma [facility] Work Phone: Start: 04-27-2024 End: 04-27-2025 Cortisol, urine, 24 hour Cortisol, urine, 24 hour Lab Routine Disorder of adrenal gland, unspecified (HCC) Expected: 04/27/2024 (Approximate), Expires: 04/27/2025 [place] Comment on above: Expected: 04/27/2024 (Approximate), Expi res: 04/27/2025 Start: 04-27-2024 End: 04-27-2025 METANEPHRINES, FRACTIONATED, LC/MS/MS, RANDOM URINE QUEST METANEPHRINES, FRACTIONATED, LC/MS/MS, RANDOM URINE QUEST Lab Routine Disorder of adrenal gland, unspecified (HCC) Expected: 04/27/2024 (Approximate), Expires: 04/27/2025 [facility] Work Phone: Comment on above: Expected: 04/27/2024 (Approximate), Expi res: 04/27/2025 Start: 04-27-2024 End: 04-27-2024 Patient encounter procedure 04/27/2024 9:00 AM EST Office Visit [facility] [address] [place] [address] Benita Moon MD [address] [place] [address] [address] [place] [address] [facility] Start: 04-18-2024 End: 04-18-2025 Catecholamines,Frac Urine Catecholamines,Frac Urine Lab Routine Disorder of adrenal gland, unspecified (HCC) Permanent atrial fibrillation (HCC) Expected: 04/18/2024 (Approximate), Expires: 04/18/2025 [place] Comment on above: Expected: 04/18/2024 (Approximate), Expi res: 04/18/2025 Start: 04-18-2024 End: 04-18-2025 Cortisol, urine, 24 hour Cortisol, urine, 24 hour Lab Routine Disorder of adrenal gland, unspecified (HCC) Permanent atrial fibrillation (HCC) Expected: 04/18/2024 (Approximate), Expires: 04/18/2025 [facility] Comment on above: Expected: 04/18/2024 (Approximate), Expi res: 04/18/2025 Start: 04-18-2024 End: 04-18-2025 METANEPHRINES, FRACTIONATED, LC/MS/MS, RANDOM URINE [facility]ST METANEPHRINES, FRACTIONATED, LC/MS/MS, RANDOM URINE QUEST Lab Routine Disorder of adrenal gland, unspecified (HCC) Permanent atrial fibrillation (HCC) Expected: 04/18/2024 (Approximate), Expires: 04/18/2025 [facility] Comment on above: Expected: 04/18/2024 (Approximate), Expi res: 04/18/2025 Start: 04-18-2024 End: 04-18-2025 VMA, urine VMA, urine Lab Routine Disorder of adrenal gland, unspecified (HCC) Permanent atrial fibrillation (HCC) Expected: 04/18/2024 (Approximate), Expires: 04/18/2025 [facility] Work Phone: Comment on above: Expected: 04/18/2024 (Approximate), Expi res: 04/18/2025 Start: 04-18-2024 End: 04-18-2024 Patient encounter procedure 04/18/2024 1:20 PM EST [facility] [address] [place] [address] Jamie Jimenez MD [address] [facility] [address] [place] [address] [facility] Start: 04-06-2024 End: 04-06-2024 Patient encounter procedure 04/06/2024 11:00 AM EST Office Visit [facility] [address] [place] [address] Benita Moon MD [address] [place] [address] [address] [place] [address] [facility] Start: 04-05-2024 End: 04-05-2025 Basic metabolic 1998 panel - Serum or Plasma Basic metabolic panel Lab Routine Permanent atrial fibrillation (HCC) Expected: 04/05/2024 (Approximate), Expires: 04/05/2025 [facility] Work Phone: Comment on above: Expected: 04/05/2024 (Approximate), Expi res: 04/05/2025 Start: 04-05-2024 End: 04-05-2025 Digoxin level Digoxin level Lab Routine Permanent atrial fibrillation (HCC) Expected: 04/05/2024 (Approximate), Expires: 04/05/2025 [facility] Comment on above: Expected: 04/05/2024 (Approximate), Expi res: 04/05/2025 Start: 04-03-2024 End: 04-03-2025 Catecholamines,Frac Urine Catecholamines,Frac Urine Lab Routine Lesion of adrenal gland (HCC) Expected: 04/03/2024 (Approximate), Expires: 04/03/2025 [facility] Comment on above: Expected: 04/03/2024 (Approximate), Expi res: 04/03/2025 Start: 04-03-2024 End: 04-03-2025 CBC W Auto Differential panel - Blood CBC auto differential Lab Routine Lesion of adrenal gland (HCC) Expected: 04/03/2024 (Approximate), Expires: 04/03/2025 [facility] Work Phone: Comment on above: Expected: 04/03/2024 (Approximate), Expi res: 04/03/2025 Start: 04-03-2024 End: 04-03-2025 Comprehensive metabolic 1998 panel - Serum or Plasma Comprehensive metabolic panel Lab Routine Lesion of adrenal gland (HCC) Expected: 04/03/2024 (Approximate), Expires: 04/03/2025 [facility] Comment on above: Expected: 04/03/2024 (Approximate), Expi res: 04/03/2025 Start: 04-03-2024 End: 04-03-2025 Cortisol, urine, 24 hour Cortisol, urine, 24 hour Lab Routine Lesion of adrenal gland (HCC) Expected: 04/03/2024 (Approximate), Expires: 04/03/2025 [facility] Comment on above: Expected: 04/03/2024 (Approximate), Expi res: 04/03/2025 Start: 04-03-2024 End: 04-03-2025 Digoxin level Digoxin level Lab Routine Encounter for therapeutic drug level monitoring Expected: 04/03/2024 (Approximate), Expires: 04/03/2025 [facility] Comment on above: Expected: 04/03/2024 (Approximate), Expi res: 04/03/2025 Start: 04-03-2024 End: 04-03-2025 Hemoglobin A1c measurement Hemoglobin A1c Lab Routine Lesion of adrenal gland (HCC) Hyperglycemia Expected: 04/03/2024 (Approximate), Expires: 04/03/2025 [facility] Comment on above: Expected: 04/03/2024 (Approximate), Expi res: 04/03/2025 Start: 04-03-2024 End: 04-03-2025 Metanephrines, Urine Metanephrines, Urine Lab Routine Lesion of adrenal gland (HCC) Expected: 04/03/2024 (Approximate), Expires: 04/03/2025 [facility] Comment on above: Expected: 04/03/2024 (Approximate), Expi res: 04/03/2025 Start: 04-03-2024 End: 04-03-2025 Thyrotropin [Units/volume] in Serum or Plasma TSH Lab Routine Permanent atrial fibrillation (HCC) Expected: 04/03/2024 (Approximate), Expires: 04/03/2025 [facility] Comment on above: Expected: 04/03/2024 (Approximate), Expi res: 04/03/2025 Start: 04-03-2024 End: 04-03-2025 VMA, urine VMA, urine Lab Routine Lesion of adrenal gland (HCC) Expected: 04/03/2024 (Approximate), Expires: 04/03/2025 [facility] Comment on above: Expected: 04/03/2024 (Approximate), Expi res: 04/03/2025 Start: 04-03-2024 End: 04-03-2024 Patient encounter procedure 04/03/2024 8:30 AM EST Office [facility] [address] [place] [address] Brooklyn Baldwin, CRUDE OIL DRIVER - MOVE COORDINATOR [address] [place] [address] [facility] Start: 03-25-2024 Creatinine measurement Creatinine Level [facility] Start: 03-25-2024 Potassium measurement Potassium Level [facility] Start: 03-24-2024 End: 03-24-2024 Patient encounter procedure 03/24/2024 10:00 AM EST Office Visit [facility] [place] [address] [place] [address] Kory Ibarra, [address] [place] [address] [place] [address] [facility] [place] Start: 03-16-2024 End: 03-16-2024 Patient encounter procedure 03/16/2024 10:15 AM EST Office Visit [facility] [address] [place] [address] Brooklyn Baldwin, CRUDE OIL DRIVER - MOVE COORDINATOR [address] [place] [address] [facility] Start: 03-15-2024 Advance Directive Discussion Advance Directive Discussion [facility] Start: 03-15-2024 Medicare Advantage Annual Wellness Visit Medicare Advantage Annual Wellness Visit [facility] Start: 03-15-2024 [facility] Start: 02-28-2024 End: 02-28-2024 Patient encounter procedure 02/28/2024 2:30 PM EST Office Visit [facility] [place] [address] [place] [address] Kory Ibarra DO [address] [place] [address] [place] [address] [facility] [place] Start: 02-23-2024 End: 02-23-2024 Patient encounter procedure [facility] Start: 02-15-2024 End: 02-15-2024 Patient encounter procedure 02/15/2024 10:00 AM EST Office Visit [facility] [address] [place] [id number] Brooklyn Baldwin, CRUDE OIL DRIVER - MOVE COORDINATOR [address] [place] [address] [facility] Start: 02-14-2024 End: 02-13-2025 C reactive protein [Mass/volume] in Serum or Plasma by High sensitivity method [facility] Comment on above: Expected: 02/14/2024 (Approximate), Expi res: 02/13/2025 Start: 02-14-2024 End: 02-13-2025 CT Lumbar spine WO contrast [facility] Comment on above: Expected: 02/14/2024, Expires: Start: 02-14-2024 End: 02-13-2025 XR Chest 2 Views [facility] Work Phone: Comment on above: Expected: 02/14/2024, Expires: Start: 02-14-2024 End: 02-14-2024 Patient encounter procedure 02/14/2024 11:20 AM EST Office Visit [facility] [place] [address] [place] [address] Curt Last PA-C [address] [place] [address] [place] [address] [facility] [place] Start: 01-25-2024 End: 01-25-2024 Patient encounter procedure [facility] Start: 12-21-2023 End: 12-20-2024 CBC W Auto Differential panel - Blood CBC auto differential Lab Routine Postmenopausal vaginal bleeding Expected: 12/21/2023 (Approximate), Expires: 12/20/2024 [facility] Work Phone: Comment on above: Expected: 12/21/2023 (Approximate), Expi res: 12/20/2024 Start: 12-21-2023 End: 12-20-2024 Comprehensive metabolic 1998 panel - Serum or Plasma Comprehensive metabolic panel Lab Routine Postmenopausal vaginal bleeding Expected: 12/21/2023 (Approximate), Expires: 12/20/2024 [facility] Comment on above: Expected: 12/21/2023 (Approximate), Expi res: 12/20/2024 Start: 12-21-2023 End: 12-20-2024 US Pelvis US pelvis Imaging Routine Postmenopausal vaginal bleeding Expected: 12/21/2023, Expires: 12/20/2024 [facility] Comment on above: Expected: 12/21/2023, Expires: Start: 12-21-2023 End: 12-21-2023 Patient encounter procedure 12/21/2023 10:00 AM EDT Office Visit [facility] [address] [place] [address] Kory Ibarra DO [address] [place] [address] [facility] Start: 12-15-2023 End: 12-14-2024 XR Chest 2 Views XR chest 2 views Imaging STAT Leukocytosis, unspecified type Expected: 12/15/2023, Expires: 12/14/2024 [facility] Work Phone: Comment on above: Expected: 12/15/2023, Expires: Start: 12-13-2023 End: 12-12-2024 CBC W Auto Differential panel - Blood CBC auto differential Lab Routine Atrial fibrillation, unspecified type (HCC) Expected: 12/13/2023 (Approximate), Expires: 12/12/2024 [facility] Work Phone: Comment on above: Expected: 12/13/2023 (Approximate), Expi res: 12/12/2024 Start: 12-13-2023 End: 12-12-2024 Urinalysis complete panel - Urine Urinalysis with reflex microscopic Lab Routine Atrial fibrillation, unspecified type (HCC) Expected: 12/13/2023 (Approximate), Expires: 12/12/2024 [facility] Comment on above: Expected: 12/13/2023 (Approximate), Expi res: 12/12/2024 Start: 11-17-2023 End: 11-17-2023 Patient encounter procedure 11/17/2023 8:30 AM EDT Office Visit [facility] [address] [place] [address] Kory Ibarra, DO [address] [place] [address] [place] [address] [facility] Start: 11-14-2023 COVID-19 Vaccine ( season) COVID-19 Vaccine ( season) [facility] Start: 11-14-2023 COVID-19 Vaccine ( season) COVID-19 Vaccine ( season) [facility] Start: 11-14-2023 Influenza vaccination Influenza Vaccine (#1) [facility] Start: 11-14-2023 [facility] Start: 10-23-2023 Medicare Advantage Annual Wellness Visit (AWV) Medicare Advantage Annual Wellness Visit (AWV) [facility] Start: 09-24-2023 End: 09-24-2023 Patient encounter procedure 09/24/2023 10:30 AM EDT Office Visit [facility] [address] [place] [address] Kory Ibarra, DO [address] [place] [address] [facility] Start: 09-23-2023 Creatinine measurement Creatinine Level [facility] Start: 09-23-2023 Potassium measurement Potassium Level [facility] Start: 08-11-2023 End: 08-11-2023 Patient encounter procedure 08/11/2023 10:40 AM EDT Office Visit [facility] Cardiology [address] [place] [address] Benita Moon MD [address] [place] [address] [address] [place] [address] [facility] Start: 07-25-2023 Screening for malignant neoplasm of breast Breast cancer screen [facility] Start: 07-03-2023 Screening for malignant neoplasm of breast Breast cancer screen [facility] Start: 06-15-2023 End: 06-15-2023 Patient encounter procedure 06/15/2023 2:00 PM EDT Office Visit [facility] Plastic & [facility] Surgery [address] [address] [place] [address] Jimbo Khalil MD [address] [address] [place] [address] [facility] Start: 06-02-2023 End: 06-02-2023 Patient encounter procedure 06/02/2023 11:40 AM EDT Appointment [facility] [address] [place] [id number] Kory Ibarra DO [address] [place] [address] [facility] Start: 05-31-2023 COVID-19 Vaccine ( season) COVID-19 Vaccine ( season) [facility] Start: 05-11-2023 End: 05-11-2023 Patient encounter procedure 05/11/2023 2:30 PM EST Office Visit [facility] [address] [place] [address] [place] [address] Jimbo Khalil MD [address] [address] [place] [address] [facility] Start: 05-10-2023 Lipid screen Lipid screen [facility] Start: 04-20-2023 End: 04-20-2023 Patient encounter procedure 04/20/2023 1:30 PM EST Office Visit [facility] [address] [address] Jimbo Khalil MD [address] [address] [place] [address] [facility] Start: 03-29-2023 End: 02-03-2024 Basic metabolic 1998 panel - Serum or Plasma Basic metabolic panel Lab Routine Permanent atrial fibrillation (CMS/HCC) (HCC) Anticoagulant long-term use Expected: 03/29/2023 (Approximate), Expires: 02/03/2024 [facility] Comment on above: Expected: 03/29/2023 (Approximate), Expi res: 02/03/2024 Start: 03-29-2023 End: 02-03-2024 CBC W Auto Differential panel - Blood CBC auto differential Lab Routine Permanent atrial fibrillation (CMS/HCC) (HCC) Anticoagulant long-term use Expected: 03/29/2023 (Approximate), Expires: 02/03/2024 [facility] Work Phone: Comment on above: Expected: 03/29/2023 (Approximate), Expi res: 02/03/2024 Start: 03-25-2023 End: 03-25-2024 CBC W Auto Differential panel - Blood CBC auto differential Lab Routine Essential hypertension Expected: 03/25/2023 (Approximate), Expires: 03/25/2024 [facility] Work Phone: Comment on above: Expected: 03/25/2023 (Approximate), Expi res: 03/25/2024 Start: 03-25-2023 End: 03-25-2024 Comprehensive metabolic 1998 panel - Serum or Plasma Comprehensive metabolic panel Lab Routine Essential hypertension Expected: 03/25/2023 (Approximate), Expires: 03/25/2024 [facility] Comment on above: Expected: 03/25/2023 (Approximate), Expi res: 03/25/2024 Start: 03-25-2023 End: 05-23-2024 DBT Breast - bilateral screening Bilateral screening mammogram with tomosynthesis Imaging Routine Breast cancer screening by mammogram Expected: 03/25/2023, Expires: 05/23/2024 [facility] Comment on above: Expected: 03/25/2023, Expires: Start: 03-25-2023 Depression Monitoring Depression Monitoring [facility] Start: 03-25-2023 Depresssion Monitoring Depresssion Monitoring [facility] Start: 03-25-2023 End: 03-25-2024 Digoxin level Digoxin level Lab Routine Anticoagulant long-term use Expected: 03/25/2023 (Approximate), Expires: 03/25/2024 [facility] Comment on above: Expected: 03/25/2023 (Approximate), Expi res: 03/25/2024 Start: 03-25-2023 End: 03-25-2024 Lipid 1996 panel - Serum or Plasma Lipid panel Lab Routine Hypercholesteremia Expected: 03/25/2023 (Approximate), Expires: 03/25/2024 [facility] Comment on above: Expected: 03/25/2023 (Approximate), Expi res: 03/25/2024 Start: 03-25-2023 End: 03-25-2024 Thyrotropin [Units/volume] in Serum or Plasma TSH Lab Routine Hypercholesteremia Expected: 03/25/2023 (Approximate), Expires: 03/25/2024 [facility] Comment on above: Expected: 03/25/2023 (Approximate), Expi res: 03/25/2024 Start: 03-25-2023 End: 03-25-2023 Patient encounter procedure [facility] Start: 03-24-2023 Creatinine measurement Creatinine Level [facility] Start: 03-24-2023 Diabetes mellitus screening Diabetes Screening [facility] Start: 03-24-2023 Potassium measurement Potassium Level [facility] Start: 03-15-2023 Advance Directive Discussion Advance Directive Discussion [facility] Start: 03-15-2023 Depression Assessment Depression Assessment [facility] Start: 03-15-2023 Medicare Advantage Annual Wellness Visit Medicare Advantage Annual Wellness Visit [facility] Start: 12-22-2022 End: 12-22-2022 Patient encounter procedure 12/22/2022 2:45 PM EDT Office Visit [facility] Cardiology [address] [place] [address] Chelo Huitron, CRUDE OIL DRIVER - MOVE COORDINATOR [address] [facility] [place] [address] [facility] Start: 11-13-2022 Covid-19 Vaccine ( season) Covid-19 Vaccine () [facility] Start: 11-13-2022 Influenza vaccination Influenza Vaccine (#1) [facility] Start: 09-22-2022 End: 09-23-2023 CBC W Auto Differential panel - Blood CBC auto differential Lab Routine Essential hypertension Expected: 09/22/2022 (Approximate), Expires: 09/23/2023 [facility] Work Phone: Comment on above: Expected: 09/22/2022 (Approximate), Expi res: 09/23/2023 Start: 09-22-2022 End: 09-23-2023 Comprehensive metabolic 1998 panel - Serum or Plasma Comprehensive metabolic panel Lab Routine Essential hypertension Expected: 09/22/2022 (Approximate), Expires: 09/23/2023 [facility] Comment on above: Expected: 09/22/2022 (Approximate), Expi res: 09/23/2023 Start: 09-22-2022 End: 09-23-2023 Lipid 1996 panel - Serum or Plasma Lipid panel Lab Routine Hypercholesteremia Expected: 09/22/2022 (Approximate), Expires: 09/23/2023 [facility] Comment on above: Expected: 09/22/2022 (Approximate), Expi res: 09/23/2023 Start: 09-22-2022 End: 11-24-2023 MG Breast - bilateral Screening Bilateral screening mammogram Imaging Routine Breast cancer screening by mammogram Expected: 09/22/2022, Expires: 11/24/2023 [facility] Comment on above: Expected: 09/22/2022, Expires: Start: 09-22-2022 End: 09-23-2023 Thyrotropin [Units/volume] in Serum or Plasma TSH Lab Routine Longstanding persistent atrial fibrillation (CMS/HCC) (HCC) Expected: 09/22/2022 (Approximate), Expires: 09/23/2023 [facility] Comment on above: Expected: 09/22/2022 (Approximate), Expi res: 09/23/2023 Start: 09-22-2022 End: 09-22-2022 Patient encounter procedure [facility] Start: 07-02-2022 Annual Wellness Visit (AWV) Annual Wellness Visit (AWV) [facility] Start: 07-02-2022 Screening for malignant neoplasm of breast Mammogram [facility] Start: 07-01-2022 Creatinine measurement [facility] Start: 07-01-2022 Depression Monitoring Depression Monitoring [facility] Start: 07-01-2022 Lipid panel Lipids [facility] Start: 07-01-2022 Potassium [Moles/volume] in Serum or Plasma Potassium [facility] Start: 07-01-2022 Potassium measurement Potassium Level [facility] Start: 06-15-2022 End: 06-15-2022 Patient encounter procedure 06/15/2022 Office Visit Cardiology Benita Moon MD [address] [place] [address] [facility] Start: 06-08-2022 End: 06-08-2022 Patient encounter procedure 06/08/2022 Office Visit Cardiology Benita Moon MD [address] [place] [address] [facility] Start: 03-30-2022 End: 03-30-2022 Patient encounter procedure 03/30/2022 Office Visit Cardiology Benita Moon MD [address] [place] [address] [facility] Start: 03-24-2022 End: 03-24-2023 CBC W Auto Differential panel - Blood CBC auto differential Lab Routine Essential hypertension Expected: 03/24/2022 (Approximate), Expires: 03/24/2023 [facility] Comment on above: Expected: 03/24/2022 (Approximate), Expi res: 03/24/2023 Start: 03-24-2022 End: 03-24-2023 Comprehensive metabolic 1998 panel - Serum or Plasma Comprehensive metabolic panel Lab Routine Essential hypertension Expected: 03/24/2022 (Approximate), Expires: 03/24/2023 [facility] Comment on above: Expected: 03/24/2022 (Approximate), Expi res: 03/24/2023 Start: 03-24-2022 End: 03-24-2023 Hemoglobin A1c/Hemoglobin.total in Blood Hemoglobin A1c Lab Routine Hyperglycemia Expected: 03/24/2022 (Approximate), Expires: 03/24/2023 [facility] Comment on above: Expected: 03/24/2022 (Approximate), Expi res: 03/24/2023 Start: 03-24-2022 End: 03-24-2023 Lipid 1996 panel - Serum or Plasma Lipid panel Lab Routine Hypercholesteremia Expected: 03/24/2022 (Approximate), Expires: 03/24/2023 [facility] Comment on above: Expected: 03/24/2022 (Approximate), Expi res: 03/24/2023 Start: 03-24-2022 End: 03-24-2023 XR Knee - left 4 Views XR knee 4+ views left Imaging Routine Chronic pain of left knee Expected: 03/24/2022, Expires: 03/24/2023 [facility] Work Phone: Comment on above: Expected: 03/24/2022, Expires: Start: 03-15-2022 Advance Directive Discussion Advance Directive Discussion [facility] Start: 03-15-2022 Depression Assessment Depression Assessment [facility] Start: 02-13-2022 End: 02-13-2022 Patient encounter procedure 02/13/2022 Office Visit Family Medicine Kory Ibarra, DO [address] [place] [address] [facility] Start: 01-29-2022 End: 01-29-2022 Patient encounter procedure 01/29/2022 Office Visit Breast Clinic / Breast Center Laura Yang, CRUDE OIL DRIVER - MOVE COORDINATOR [address] [place] [address] [facility] Start: 01-27-2022 End: 01-27-2022 Patient encounter procedure 01/27/2022 Appointment Radiology [facility] Start: 01-27-2022 Blood chemistry [facility] Work Phone: Start: 01-26-2022 Blood chemistry [facility] Work Phone: Start: 01-25-2022 Blood chemistry [facility] Work Phone: Start: 01-24-2022 Blood chemistry [facility] Work Phone: Start: 01-23-2022 Blood chemistry [facility] Work Phone: Start: 01-22-2022 Patient discharge [facility] Work Phone: Start: 01-19-2022 Respiratory secretion precautions [facility] Work Phone: Start: 01-19-2022 End: 01-19-2022 Referral to service [facility] Work Phone: Start: 01-19-2022 Following clinical pathway protocol [facility] Work Phone: Start: 01-19-2022 Assessment of risk of venous thromboembolism [facility] Work Phone: Start: 01-19-2022 Care regimes management [facility] Work Phone: Start: 01-19-2022 Catheterization of vein [facility] Work Phone: Start: 01-19-2022 Incentive spirometry [facility] Work Phone: Start: 01-19-2022 Inhalation therapy procedure [facility] Work Phone: Start: 01-19-2022 Insertion of catheter into peripheral vein [facility] Work Phone: Start: 01-19-2022 Measuring intake and output [facility] Work Phone: Start: 01-19-2022 Oxygen therapy [facility] Work Phone: Start: 01-19-2022 Physiotherapy of chest [facility] Work Phone: Start: 01-19-2022 Providing care according to standard [facility] Work Phone: Start: 01-19-2022 Provision of activity privileges [facility] Work Phone: Start: 01-18-2022 Legionella pneumophila Ag [Presence] in Urine [facility] Work Phone: Start: 01-18-2022 Streptococcus pneumoniae antigen assay [facility] Work Phone: Start: 01-18-2022 End: 01-19-2022 [facility] Work Phone: Start: 01-18-2022 Taking nasal swab [facility] Work Phone: Start: 01-18-2022 Admission procedure [facility] Work Phone: Start: 01-18-2022 [facility] Work Phone: Start: 01-06-2022 COVID-19 Vaccine (3 - Booster for Moderna series) COVID-19 Vaccine (3 - Booster for Moderna series) [facility] Comment on above: Postponed from 01/14/2021 (Patient Refus ed) Start: 12-31-2021 End: 12-31-2021 Patient encounter procedure 12/31/2021 Office Visit Family Medicine Kory Ibarra, DO [address] [place] [address] [facility] Start: 12-30-2021 Creatinine measurement Creatinine monitoring [facility] Work Phone: Start: 12-30-2021 Lipid panel Lipid screen [facility] Work Phone: Start: 12-30-2021 Potassium monitoring Potassium monitoring [facility] Work Phone: Start: 11-26-2021 Screening for malignant neoplasm of breast Breast cancer screen [facility] [place] Start: 11-13-2021 Influenza vaccination Flu vaccine (#1) [facility] Start: 10-28-2021 End: 10-28-2021 Patient encounter procedure 10/28/2021 Office Visit Cardiology Chelo Huitron, CRUDE OIL DRIVER - MOVE COORDINATOR [address] [place] [address] [facility] Start: 10-27-2021 End: 10-27-2021 ambulatory 10/27/2021 Anti-coag visit Pharmacy [facility] Start: 10-06-2021 End: 10-06-2021 Patient encounter procedure 10/06/2021 Appointment Echocardiography Benita Moon MD [address] [place] [address] [address] [place], [place] [id number] [facility] Start: 08-14-2021 End: 08-14-2021 Patient encounter procedure [facility] Start: 08-06-2021 End: 08-06-2021 Patient encounter procedure 08/06/2021 Office Visit Family Medicine Kory Ibarra, DO [address] [place] [address] [facility] Start: 08-05-2021 End: 08-05-2021 Patient encounter procedure 08/05/2021 Office Visit Cardiology Chelo Huitron, CRUDE OIL DRIVER - MOVE COORDINATOR [address] [facility] [place] [address] [facility] Start: 07-09-2021 End: 07-09-2021 Patient encounter procedure 07/09/2021 Office Visit Cardiology Chelo Huitron, CRUDE OIL DRIVER - MOVE COORDINATOR [address] [place] [address] [facility] Start: 06-18-2021 End: 06-18-2021 Patient encounter procedure 06/18/2021 Office Visit Family Medicine Kory Ibarra DO [address] [place] [address] [phone] [facility] Start: 05-21-2021 Annual Wellness Visit (AWV) Annual Wellness Visit (AWV) [facility] Work Phone: Start: 05-20-2021 Creatinine measurement Creatinine monitoring [facility] Work Phone: Start: 05-20-2021 Lipid panel Lipid screen [facility] Work Phone: Start: 05-20-2021 Potassium monitoring Potassium monitoring [facility] Work Phone: Start: 02-04-2021 Shingles Vaccine (2 of 2) Shingles Vaccine (2 of 2) [facility] Start: 01-20-2021 End: 01-20-2021 Patient encounter procedure 01/20/2021 Appointment Radiology [facility] Start: 01-14-2021 COVID-19 Vaccine (3 - Booster for Moderna series) COVID-19 Vaccine (3 - Booster for Moderna series) [facility] Start: 12-30-2020 End: 12-30-2020 Patient encounter procedure 12/30/2020 Office Visit Cardiology Ino Ly MD [facility] [place] [address] [phone] [facility] Start: 12-25-2020 End: 12-25-2020 Patient encounter procedure 12/25/2020 Appointment Radiology [facility] Start: 12-18-2020 End: 12-18-2020 Patient encounter procedure 12/18/2020 Office Visit Family Medicine Kory Ibarra, DO [address] [place] [address] [phone] [facility] Start: 12-07-2020 Breast cancer screen Breast cancer screen [facility] [place] Start: 12-07-2020 Screening for malignant neoplasm of breast Breast cancer screen [place], [place] Start: 11-29-2020 Creatinine measurement Creatinine monitoring [facility] [place] Start: 11-29-2020 Lipid panel Lipid screen [place], [place] Start: 11-29-2020 Potassium monitoring Potassium monitoring [place], [place] Start: 11-14-2020 End: 11-14-2020 Office Visit 11/14/2020 Office Visit Family Medicine Kory Ibarra, DO [address] [place] [address] [phone] [facility] Start: 11-13-2020 Influenza vaccination Flu vaccine (#1) [facility] Work Phone: Start: 10-09-2020 COVID-19 Vaccine (3 - Booster for Moderna series) COVID-19 Vaccine (3 - Booster for Moderna series) [facility] Start: 10-09-2020 COVID-19 Vaccine (3 - Moderna series) COVID-19 Vaccine (3 - Moderna series) [facility] Start: 06-25-2020 End: 06-25-2020 Office Visit 06/25/2020 Office Visit Cardiology Chelo Huitron, CRUDE OIL DRIVER - MOVE COORDINATOR [address] [facility] [place] [address] [facility] Start: 05-29-2020 End: 05-29-2020 Office Visit 05/29/2020 Office Visit Family Medicine Kory Ibarra, DO [address] [place] [address] [phone] [facility] Start: 05-20-2020 End: 05-20-2020 Office Visit 05/20/2020 Office Visit Family Kory Hunt, DO [address] [place], [place] [id number] [facility] Start: 05-18-2020 Creatinine measurement Creatinine monitoring [place], [place] Start: 05-18-2020 Lipid panel Lipid screen [place], [place] Start: 05-18-2020 Potassium monitoring Potassium monitoring [facility] Start: 05-17-2020 Annual Wellness Visit (AWV) Annual Wellness Visit (AWV) Darlene [facility] Start: 12-14-2019 End: 12-14-2019 Office Visit 12/14/2019 Office Visit Cardiology Ino Ly MD [address] [place] [address] [phone] [facility] Start: 11-30-2019 End: 11-30-2019 Office Visit 11/30/2019 Office Visit Family Medicine Kory Ibarra, DO [address] [place] [address] [phone] [facility] Start: 11-24-2019 Mammography Mammogram Screening [facility] Start: 11-24-2019 Screening for malignant neoplasm of breast Mammogram Screening [facility] Start: 11-17-2019 End: 11-17-2019 Office Visit 11/17/2019 Office Visit Family Medicine Kory Ibarra, DO [address] [place] [address] [phone] [facility] Start: 11-14-2019 [facility] Start: 11-07-2019 End: 11-07-2019 Appointment 11/07/2019 Appointment Radiology [facility] Start: 10-02-2019 End: 10-02-2019 Appointment 10/02/2019 Appointment Radiology [facility] Start: 06-08-2019 End: 06-08-2019 Appointment 06/08/2019 Appointment Radiology [facility] Start: 05-12-2019 End: 05-12-2019 Office Visit 05/12/2019 Office Visit Family Medicine Kory Ibarra, DO [address] [place] [address] [phone] [facility] Start: 05-10-2019 Creatinine monitoring Creatinine monitoring [facility] Start: 05-10-2019 Lipid screen Lipid screen [place], [place] Start: 05-10-2019 Potassium monitoring Potassium monitoring [place] Start: 04-25-2019 End: 04-25-2019 Office Visit 04/25/2019 Office Visit Cardiology Ino Ly MD [address] [place] [address] [phone] [facility] Start: 12-05-2018 End: 12-05-2018 Office Visit 12/05/2018 Office Visit Family Medicine Kory Ibarra, DO [address] [place] [address] [phone] [facility] Start: 11-13-2018 Influenza vaccination Flu vaccine (#1) [place] Start: 11-09-2018 End: 11-09-2018 Office Visit 11/09/2018 Office Visit Family Medicine Kory Ibarra, DO [address] [place] [address] [phone] [facility] Start: 10-12-2018 Breast cancer screen Breast cancer screen [place], [place] Start: 09-01-2018 Annual Wellness Visit (AWV) Annual Wellness Visit (AWV) [place] Start: 2016 Bone Density Screening Bone Density Screening [facility] Start: 2016 DEXA (modify frequency per FRAX score) DEXA (modify frequency per FRAX score) [place], [place] Start: 2016 Screening for osteoporosis Bone Density Screening [facility] Start: 2014 Annual Wellness Visit (AWV) Annual Wellness Visit (AWV) [place] Start: 2011 RSV Immunization aged 60 or older (1 - 1-dose 60+ series) RSV Immunization aged 60 or older (1 - 1-dose 60+ series) [facility] Start: 2011 RSV Immunization for Adults (1 - Risk 60-74 years 1-dose series) RSV Immunization for Adults (1 - Risk 60-74 years 1-dose series) [facility] Start: 2011 RSV Vaccine (1 - 1-dose 60+ series) RSV Vaccine (1 - 1-dose 60+ series) [facility] Start: 2011 [facility] Start: 2006 Screening for osteoporosis DEXA (modify frequency per FRAX score) [facility] Start: 2001 Shingles Vaccine (1 of 2) Shingles Vaccine (1 of 2) [place] Start: 1996 Cologuard (FIT-DNA) Cologuard (FIT-DNA) [facility] Start: 1996 Colonoscopy Colonoscopy [facility] Start: 1996 Colorectal Cancer Screening Colorectal Cancer Screening [facility] Start: [address] Colonography [facility] Start: 1996 Diabetes Screening Diabetes Screening [facility] Start: 1996 Fecal Occult Blood Fecal Occult Blood [facility] Start: 1996 Lipid 1996 panel - Serum or Plasma Lipid Screening [facility] Start: 1996 Screening for malignant neoplasm of colon [facility] Start: 1996 Sigmoidoscopy Sigmoidoscopy [facility] Start: 1991 Diabetes screen Diabetes screen [place], [place] Start: 1986 Diabetes screen Diabetes screen [facility] Start: 1970 DTaP/Tdap/Td Vaccines (1 - Tdap) DTaP/Tdap/Td Vaccines (1 - Tdap) [facility] Start: 1970 Urine microalbumin profile DTaP,Tdap,Td Vaccine (1 - Tdap) [facility] Start: 1970 [facility] Start: 1969 Anxiety Screening Anxiety Screening [facility] Start: 1969 Depression Screening Depression Screening [facility] Start: 1969 Diabetes mellitus screening Diabetes Screening [facility] Start: 1969 Hepatitis C screening [facility] Start: 1969 Hepatitis C Screening Hepatitis C Screening [facility] Start: 1967 COVID-19 Vaccine (1 of 2) COVID-19 Vaccine (1 of 2) [facility] Work Phone: Start: 1963 COVID-19 Vaccine (1) COVID-19 Vaccine (1) [facility] Work Phone: Start: 1963 Depresssion Monitoring Depresssion Monitoring [facility] Start: 1950 Echocardiography Echocardiogram [facility] Start: 1950 Hepatitis B Vaccines (1 of 3 - 3-dose series) Hepatitis B Vaccines (1 of 3 - 3-dose series) [facility] Start: 1950 Hepatitis C screen Hepatitis C screen [facility] [place] Start: 1950 Hepatitis C screening Hepatitis C screen [facility] [place] Start: 1950 Medicare Advantage Annual Wellness Visit (AWV) Medicare Advantage Annual Wellness Visit (AWV) [facility] Start: 1950 Screening for malignant neoplasm of colon [facility] Start: 1950 Screening for osteoporosis [facility] Bone marrow exam [facility] Work Phone: Comment on above: Release Upon Ordering for 1 Occurrences starting 12/20/2024, 1 completed End: 11-16-2024 CT Abdomen and Pelvis WO and W contrast IV [facility] Work Phone: Comment on above: Once for 1 Occurrences starting 11/17/19 until 11/16/2024 Hemoglobin A1c/Hemoglobin.total in Blood [facility] Work Phone: End: 05-02-2024 Hemoglobin.gastrointest inal.lower [Presence] in Stool by Immunoassay --1st specimen [facility] Work Phone: IgG, IgA, IgM IgG, IgA, IgM La b Routine Abnormal protein electrophoresis Ordered: 06/23/2024 [place] Comment on above: Ordered: 06/23/2024 Immunofixation Electrophoresis Immunofixation Electrophoresis Lab Routine Abnormal protein electrophoresis Ordered: 06/23/2024 [place] Comment on above: Ordered: 06/23/2024 Immunofixation Electrophoresis Immunofixation Electrophoresis Lab Routine Leukocytosis, unspecified type Anemia, unspecified type Thrombocytopenia (HCC) 11/09/2024 3:08 PM EDT [facility] Immunofixation Electrophoresis Immunofixation Electrophoresis Lab Routine Leukocytosis, unspecified type Anemia, unspecified type Thrombocytopenia (HCC) 11/09/2024 3:08 PM EDT [place] Immunoglobulins, IgG , IgA, IgM Immunoglobulins, IgG, IgA, IgM Lab Routine Abnormal protein electrophoresis 06/30/2024 4:49 PM EDT [facility] K/L Qnt Free Light Chains with Ratio (BKR QUEST) K/L Qnt Free Light Chains with Ratio (BKR QUEST) Lab Routine Leukocytosis, unspecified type Anemia, unspecified type Thrombocytopenia (HCC) 11/09/2024 3:08 PM EDT [facility] Legionella pneumophi la Ag [Presence] in Urine [facility] End: 07-02-2021 MG Cancer Risk Survey [facility] Work Phone: Comment on above: Once for 1 Occurrences starting 07/03/19 until 07/02/2021 OUTSIDE PROCEDURE SCAN OUTSIDE P ROCEDURE SCAN Procedures Ordered: 07/22/2022 [facility] Comment on above: Ordered: 07/22/2022 OUTSIDE PROCEDURE SCAN OUTSIDE P ROCEDURE SCAN Procedures Ordered: 04/18/2024 [facility] Comment on above: Ordered: 04/18/2024 OUTSIDE PROCEDURE SCAN OUTSIDE P ROCEDURE SCAN Procedures Ordered: 04/27/2024 [facility] Comment on above: Ordered: 04/27/2024 OUTSIDE PROCEDURE SCAN OUTSIDE P ROCEDURE SCAN Procedures Ordered: 08/05/2024 [facility] Comment on above: Ordered: 08/05/2024 Patient Education Heart Failure Flare Up Signs Heart Failure: Tracking Your Weight Heart Failure Make Changes Diet Heart Failure Dc Heart Failure Care [facility] Work Phone: Patient referral [facility] Work Phone: End: 05-04-2024 Peripheral blood smear [facility] End: 05-04-2024 Peripheral Blood Smear [facility] Peripheral blood smear [facility] Peripheral Blood Smear [facility] Protein [Mass/volume ] in Serum or Plasma Protein, total Lab Routine Normochromic normocytic anemia Ordered: 06/19/2024 [facility] Comment on above: Ordered: 06/19/2024 Protein, Total and Protein Electrophoresis [facility] Comment on above: Ordered: 06/19/2024 Respiratory pathogen s DNA and RNA 12b panel - Unspecified specimen by STEPHANIE with probe detection [facility] Work Phone: SARS-CoV-2 (COVID-19 ) Ag [Presence] in Respiratory specimen by Rapid immunoassay [facility] End: 11-23-2018 Screening digital breast tomosynthesis bi Luna Ernst Digital Screen Bilateral Imaging Routine Once for 1 Occurrences starting 11/23/2018 until 11/23/2018 [facility] [place] Comment on above: Once for 1 Occurrences starting 11/24/19 19 until 11/23/2018 Screening digital breast tomosynthesis bi Luna Ernst Digital Screen Bilateral Imaging Routine 11/23/2018 10:54 AM EDT [facility] [place] Serum Electrophoresis [facility] Comment on above: Ordered: 06/19/2024 Serum Electrophoresis Serum Elec trophoresis Lab Routine Leukocytosis, unspecified type Anemia, unspecified type Thrombocytopenia (HCC) 11/09/2024 3:08 PM EDT [facility] End: 07-24-2021 Surgical Pathology [facility] Work Phone: Comment on above: Once for 1 Occurrences starting 07/25/19 22 until 07/24/2021 Troponin T.cardiac [Mass/volume] in Serum or Plasma by High sensitivity method [facility] Troponin T.cardiac [Mass/volume] in Serum or Plasma by High sensitivity method [facility] End: 07-02-2021 US BREAST LIMITED RIGHT [facility] Work Phone: Comment on above: Once for 1 Occurrences starting 07/03/19 22 until 07/02/2021 Immunizations Immunization Date Immunization Notes Care Provider Priyanka villagran 02-16-2024 influenza vaccine A& B surf ant adjuvanted (Fluad) HIGH-DOSE injection 0.5 mL Brina Rocha DO Work Phone: [facility] 12-21-2023 Seasonal trivalent influenza vaccine, adjuvanted, preservative free Kory Ibarra DO Work Phone: [facility] 12-21-2023 influenza virus vacc ine, unspecified formulation Kory Ibarra DO Work Phone: [facility] 01-30-2023 Influenza, High-dose Seasonal, Quadrivalent, Preservative Free Kory Ibarra DO Work Phone: [facility] 01-30-2023 influenza virus vacc ine, unspecified formulation Benita Moon MD Work Phone: [facility] 01-16-2022 Influenza, High-dose Seasonal, Quadrivalent, Preservative Free Chelo Huitron [employer]ORD[employer] Work Phone: [facility] 01-16-2022 zoster vaccine recombinant Chelo Muhammadteraisabell [employer] - [employer]OVE [employer]ORD[employer] Work Phone: [facility] 01-16-2022 influenza virus vacc ine, unspecified formulation Kory Jimeneza DO Work Phone: [facility] 12-18-2020 Influenza, High-dose , Quadv, 65 yrs +, IM (Fluzone) Ino Ly MD Work Phone: [facility] Work Phone: 12-10-2020 zoster vaccine recombinant Kory Ibarra DO Work Phone: [facility] Work Phone: 08-14-2020 COVID-19, Moderna, Primary or Immunocompromised, PF, 100mcg/0.5mL Kory Bellella DO Work Phone: [facility] Work Phone: 07-17-2020 COVID-19, Moderna, Primary or Immunocompromised, PF, 100mcg/0.5mL Kory Bellella DO Work Phone: [facility] Work Phone: 11-30-2019 Influenza, High-dose , Quadv, 65 yrs +, IM (Fluzone) Ino Ly [facility] 01-06-2019 Seasonal trivalent influenza vaccine, adjuvanted, preservative free Chelo Huitron [employer] - MOVE COORDINATOR Work Phone: [facility] 05-12-2018 pneumococcal polysaccharide vaccine, 23 valent Ino Ly [facility] 01-03-2018 influenza, high dose seasonal, preservative-free Ino Ly [facility] 01-05-2017 pneumococcal conjuga te vaccine, 13 valent Kory Petrilla DO Work Phone: [facility] Work Phone: 01-05-2017 Seasonal trivalent influenza vaccine, adjuvanted, preservative free Chelo Huitron [employer] - [employer]OVE COORD[employer]ATOR Work Phone: [facility] 12-13-2016 influenza, high dose seasonal, preservative-free [facility] 12-13-2016 pneumococcal conjuga te vaccine, 13 valent [facility], [place] 08-03-2016 pneumococcal conjuga te vaccine, 13 valent Ino Laramie [facility] 02-10-2016 influenza, injectabl e, quadrivalent, preservative free Dr. Davis Irene DO Work Phone: [facility] 02-10-2016 influenza, seasonal, injectable [facility] Work Phone: 01-17-2016 influenza virus vacc ine, unspecified formulation Kory Bellerajwinder DO Work Phone: [facility] Work Phone: 01-17-2016 influenza, injectabl e, quadrivalent, contains preservative [facility] [place] 12-13-2013 influenza virus vacc ine, unspecified formulation [facility] , [place] 12-13-2013 influenza, seasonal, injectable Chelo Muhammadmaryann [employer] - MOVE COORDINATOR Work Phone: [facility] 01-30-2009 novel influenza-H1N1 -09, preservative-free, injectable Chelo Agueroisabell [employer] - MOVE COORDINATOR Work Phone: [facility] Payers Date Payer Category Payer Self-pay [id number] 2022 Medicare (Managed Care) [facility] DUAL COMPLETE HMO POS SNP [id number] 2022 Medicare HMO [id number] 2022 Unknown [id number] 2021 Medicare [id number]. [id number] 2018 Medicaid [id number] [id number]. [id number] 2018 Medicare HUMANA MEDICARE HUMANA CHOICE-PPO MEDICARE xxxxxxxxx 2018-Present [address] [address] [place] [address] xxxxxxxxx [id number] 2018 Medicare [id number]. [id number] 2018 Medicaid [id number] 2016 Unknown [id number] 1950 Unknown [id number] 2.840.1.261292.3.579.2. 1950 Unknown [id number] .0.1.600864.3.579.2. 1951 Unknown [id number] 2.840.1.293110.3.579.2. 1951 Unknown [id number] 2.16840.1.399300.3.579.2 1951 Unknown [id number] 2.840.1.171360.3.579.2. 1951 Unknown [id number] 2.840.1.726078.3.579.2 1951 Unknown [id number] 2.16840.1.450503.3.579.2. 668 1951 Unknown [id number] 2..840.1.887073.3.579.2. 668 1951 Unknown [id number] 2..840.1.736342.3.579.2. 668 1951 Unknown [id number] 2.840.1.777357.3.579.2. 8 Medicare MEDICARE PART A B [id number] Private Health Insurance Private Health Insurance AETNA SR SUPPLEM ENT INS [id number] Unknown Unknown COMMERCIAL OTHER [id number] Unknown [id number] 2.840.1.117796.3.579.2. 462 Unknown [id number] 2.840.1.457792.3.579.2. 462 Unknown [id number] 2.840.1.732615.3.579.2. 462 Unknown [id number] 2.840.1.040690.3.579.2. 462 Unknown [id number] 2.840.1.911689.3.579.2. 462 Unknown [id number] 2.840.1.006862.3.579.2. 462 Unknown [id number] 2.840.1.190619.3.579.2. 462 Unknown [id number] 2.840.1.553841.3.579.2. 462 Unknown [id number] 2.840.1.017465.3.579.2. 462 Unknown [id number] 2.840.1.052482.3.579.2. 462 Unknown [id number] 2.16.840.1.549146.3.579.2. 462 Unknown [id number] 2.16.840.1.564107.3.579.2. 462 Unknown [id number] 2.16.840.1.383007.3.579.2. 462 Unknown [id number] 2.16.840.1.152286.3.579.2. 462 Unknown [id number] 2.16.840.1.911068.3.579.2. 462 Unknown [id number] 2.16.840.1.784328.3.579.2. 462 Unknown [id number] 2.16.840.1.689582.3.579.2. 462 Social History Date Type Detail Facility Start: 12-11-2018 End: 08-25-2024 Tobacco smoking status NHIS Never smoker [place] Start: 12-11-2018 End: 01-10-2025 Alcohol intake Current non-drinker of alcohol (finding) [place] Start: 11-09-2018 End: 12-18-2020 History SDOH Alcohol Frequency 1 [place] Start: 11-09-2018 End: 07-01-2021 History SDOH Social Connections Phone 3 [place] Start: 11-09-2018 History SDOH Social Connections Hinduism 2 [place] Start: 11-09-2018 History SDOH Social Connections Meetings 98 [place] Start: 11-09-2018 History SDOH Financial 4 [place] Start: 10-08-2016 Alcohol Comment rare [place], [place] Start: 1950 Sex Assigned At Not on file M [place] Start: 05-17-2019 End: 12-29-2022 Tobacco use and exposure Never used [place] Start: 11-09-2018 End: 04-28-2024 Alcohol intake No [place] Start: 12-18-2020 History SDOH Financial 5 [facility] Work Phone: Start: 01-18-2022 End: 01-19-2022 Tobacco smoking status NHIS Unknown if ever smoked [facility] Work Phone: Start: 07-14-2016 None [facility] Start: 07-14-2016 With Family [facility] Start: 10-27-2013 Non-smoker [facility] Start: 1950 Sex Assigned At Female [facility] Start: 03-14-2022 End: 09-22-2022 Exposure to SARS-CoV-2 (event) Not sure [facility] Start: 06-15-2022 End: 04-28-2024 History of Social function [facility] National Score (1-10 0), lower number is lower risk Not on file [facility] Start: 10-13-2021 End: 06-05-2024 Sex Female (finding) [facility] How often to you hav e a drink containing alcohol? Never [facility] Has the [employer], or [employer] threatened to shut off services in your home in past 12Mo No [facility] (I/We) worried whemegha er (my/our) food would run out before (I/we) got money to buy more. Never true [facility] Goals Date Patient Goal Desired Activity /State Personal health goal Comment on above: Lose weight Barriers: none Plan for overcoming my barriers: N/A Confidence: 10/10 Anticipated Goal Completion Date: 11/10/19 Formatting of this n ote might be different from the original. Lose weight Barriers: none Plan for overcoming my barriers: N/A Confidence: 1010 Anticipated Goal Completion Date: 11/10/19 Functional Status Date Assessment Result Facility 08-28-2024 Functional status Ambulates [facility] Work Phone: 08-28-2024 Functional status Tolerates Activity Fair [facility] Work Phone: 06-19-2024 Patient Health Questionnaire 2 item (PHQ-2) [Reported] [facility] 06-05-2024 Functional status Chair [facility] Work Phone: 01-22-2022 Functional status Activity Abili ty Independent [facility] Work Phone: 01-22-2022 Functional status Ambulates [facility] Work Phone: [facility] Mental Status Date Assessment Result Facility 08-28-2024 Cognitive function Awake;Alert;A ppropriate;Fol lows Commands [facility] Work Phone: 08-28-2024 Cognitive function Voice/Name [facility] Work Phone: 06-05-2024 Cognitive function Voice/Name [facility] Work Phone: 01-21-2022 Cognitive function Voice/Name [facility] Work Phone: Clinical Notes 03-24-2022 to 01-10-2025 Marion Mccann, DO - 01/10/2025 2:30 PM EDTTdaniel Mccann, DO - 01/10/2025 2:30 PM EDTTelephone Encounter - Oswaldo Bryan RN - 01/01/2025 5:14 PM EDTDischarge InstructionsAttachments Note Date & Type Note Facility 01-10-2025 History of Present illness Narrative Hematology/Oncology Office Visit Consultation/Referral Reason: leukocytosis, anemia, thrombocytopenia, left adrenal mass. Diagnosed with CMML on 12/20/24 Referred by: Dr. Ibarra HPI: Alta Baker is a 74 y.o. female who was referred to hematology on 11/09/24 for evaluation of leukocytosis, anemia, thrombocytopenia and a left adrenal mass. She has several medical issues including COPD, CHF, HTN, obesity, atrial fibrillation on eliquis, history of PE. She reported a 60 lb weight loss over the past year along with cough and shortness of breath. Low platelets: she has has low platelets for several years, dating back to at least 2019. Plts 120-130 range. When she was hospitalized with pneumonia in Apr 2024, the platelets decreased but recovered back to her baseline. She has history of easy bleeding/bruising. Anemia, normocytic: she has history of iron, b12 and folate deficiency. She had an abnormal SPEP 06/21/24 which showed a small m spike of 0.16 g/dL. Bone marrow biopsy planned as outlined below. She was evaluated by GI but did not wish to go through with an EGD. She denies any blood in her stools. Takes iron and folic acid supplements. Leukocytosis, monocyte predominant. This is new since Apr 2024. Mild splenomegaly noted on CT scan in Apr 2024. Flow cytometry 11/09/24 showed findings concerning for an underlying MDS/MPD and a bone marrow biopsy was recommended. Left adrenal mass, 4-5cm. Stable on imaging from 11/16/24 dating back to 2018 at least. Stable splenomegaly. 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 Appears to be low risk subgroup. She has pathogenic variants in ASXL1, CBL, EZH2, and TET2. She is asymptomatic and counts are stable. Observation recommended. She is accompanied by her daughter today. No B symptoms. Weight stable. Appetite is good. Medical History[1] Surgical History[2] Patient Active Problem List Diagnosis Date Noted Nonrheumatic tricuspid valve regurgitation 05/31/2024 Nonrheumatic aortic valve insufficiency 05/31/2024 Major depressive disorder in remission Essential hypertension Cor pulmonale, chronic ([facility]) 02/17/2024 Thrombocytopenia 12/2023 COPD (chronic obstructive pulmonary disease) ([facility]) 09/22/2022 Gallstone 2018 Depression 07/01/2021 Heart failure with improved ejection fraction (HFimpEF) ([facility]) 06/25/2020 Morbidly obese ([facility]) 10/25/2018 History of pulmonary embolism 07/20/2016 Hypercholesteremia 04/26/2016 Asthma ([facility]) 01/31/2016 Venous insufficiency 01/31/2016 Anticoagulant long-term use 11/23/2014 Atrial fibrillation ([facility]) 11/23/2014 Mitral regurgitation 11/23/2014 Allergic rhinitis 11/23/2014 Pulmonary HTN ([facility]) 11/23/2014 CHRISTIANNE on CPAP 11/23/2014 Social History[3] Family History[4] Allergies[5] Current Medications[6] Review of Systems Constitutional: Positive for appetite change, fatigue and unexpected weight change. Negative for chills, diaphoresis and fever. HENT: Negative for dental problem, mouth sores, nosebleeds, sneezing, sore throat, tinnitus, trouble swallowing and voice change. Eyes: Negative for photophobia, pain and visual disturbance. Respiratory: Negative for cough, shortness of breath and wheezing. Cardiovascular: Negative for chest pain, palpitations and leg swelling. Gastrointestinal: Negative for abdominal distention, abdominal pain, blood in stool, constipation, diarrhea, nausea and vomiting. Endocrine: Negative for cold intolerance and heat intolerance. Genitourinary: Negative for difficulty urinating, frequency, hematuria and urgency. Musculoskeletal: Positive for arthralgias and back pain. Negative for gait problem and myalgias. Skin: Negative for pallor and rash. Allergic/Immunologic: Negative for immunocompromised state. Neurological: Negative for dizziness, syncope, weakness, light-headedness, numbness and headaches. Hematological: Negative for adenopathy. Bruises/bleeds easily. Psychiatric/Behavioral: Negative for confusion and sleep disturbance. The patient is not nervous/anxious. All other systems reviewed and are negative. Vitals: 01/10/25 1437 BP: 138/78 BP Location: Right arm Patient Position: Sitting Pulse: 98 Temp: 36.6 C (97.8 F) Weight: 99.6 kg (219 lb 9.6 oz) Height: 1.524 m (5') ECOG PS = 2 Physical Exam Vitals and nursing note reviewed. Constitutional: General: She is not in acute distress. Appearance: She is obese. HENT: Head: Normocephalic. Eyes: General: No scleral icterus. Conjunctiva/sclera: Conjunctivae normal. Cardiovascular: Rate and Rhythm: Normal rate and regular rhythm. Pulmonary: Effort: Pulmonary effort is normal. No respiratory distress. Abdominal: General: Abdomen is flat. There is no distension. Musculoskeletal: General: No swelling. Skin: Findings: No rash. Neurological: General: No focal deficit present. Mental Status: She is alert and oriented to person, place, and time. Psychiatric: Mood and Affect: Mood normal. Thought Content: Thought content normal. Imaging/Labs: Hospital Outpatient Visit on 12/20/2024 Component Date Value Ref Range Status Auto WBC 12/20/2024 11.8 (H) 3.6 - 10.7 10*3/uL Final RBC 12/20/2024 3.88 3.80 - 5.20 10*6/uL Final Hemoglobin 12/20/2024 11.0 (L) 11.7 - 16.0 g/dL Final Hematocrit 12/20/2024 34.1 (L) 35.0 - 47.0 % Final MCV 12/20/2024 87.9 77.0 - 99.0 fL Final MCH 12/20/2024 28.4 26.0 - 34.0 pg Final MCHC 12/20/2024 32.3 30.5 - 36.0 % Final RDW 12/20/2024 14.6 11.5 - 15.0 % Final Platelets 12/20/2024 113 (L) 140 - 440 10*3/uL Final MPV 12/20/2024 12.3 9.0 - 12.7 fL Final Neutrophils % 12/20/2024 58 38 - 82 % Final Bands % 12/20/2024 1 (H) <=0 % Final Lymphocytes % 12/20/2024 13 (L) 15 - 45 % Final Monocytes % 12/20/2024 28 (H) 5 - 13 % Final Absolute Neutrophil Count 12/20/2024 7.0 1.8 - 7.0 10*3/uL Final Segs Absolute 12/20/2024 7.0 1.8 - 7.5 10*3/uL Final Bands Absolute 12/20/2024 0.1 (H) <=0.0 10*3/uL Final Lymphocytes Absolute 12/20/2024 1.5 1.0 - 4.3 10*3/uL Final Monocytes Absolute 12/20/2024 3.3 (H) 0.0 - 0.9 10*3/uL Final Anisocytosis 12/20/2024 Slight (A) (none) Final Poikilocytes 12/20/2024 Slight (A) (none) Final Ovalocytes 12/20/2024 Slight (A) (none) Final WBC Morphology 12/20/2024 Normal Final PLT Morphology 12/20/2024 Normal Final Total Counted 12/20/2024 100 Final Neutrophils Manual 12/20/2024 58 Final Lymphocytes Manual 12/20/2024 13 Final Monocytes Manual 12/20/2024 28 Final Bands Manual 12/20/2024 1 Final Differential Method 12/20/2024 Manual differential performed Final Case Report 12/20/2024 Final Value:Bone Marrow Case: [id number] Authorizing Provider: Marion Mccann DO Collected: 12/20/2024 0950 Ordering Location: [facility] CT Imaging Received: 12/20/2024 0905 Pathologist: Rachel Avery MD MPH Specimens: A) - Bone Marrow Aspirate, Left hip B) - Iliac Crest, Left, left hip C) - Bone Marrow Clot, left hip Addendum 2 12/20/2024 Final Value:MDS FISH is negative. Please see [facility] report [id number] for MDS Extended testing ordered by Dr. Marion Mccann. Report has been scanned into the patient's chart. Addendum 12/20/2024 Final Value:Conventional chromosome analysis is normal. NGS revealed pathogenic variants in ASXL1, CBL, EZH2, and TET2. The detected mutations support a clonal myeloid neoplasm consistent with chronic myelomonocytic leukemia (CMML) in the appropriate morphologic and clinical context. Mutations in TET2 and ASXL1 are among the most frequent in CMML, and their coexistence is highly specific for this entity. The CBL mutation represents a TOBI-pathway alteration commonly seen in proliferative forms of CMML, and EZH2 mutations have been associated with adverse prognostic impact in myeloid neoplasms. Please see [facility] report [id number] for Cytogenetics testing and report [id number] for MDS/CMML Profile ordered by Dr. Marion Mccann. Reports have been scanned into the patient's chart. Final Diagnosis 12/20/2024 Final Value:BONE MARROW - CORE BIOPSY, CLOT SECTION, TOUCH PREPARATIONS, ASPIRATE SMEAR, AND PERIPHERAL BLOOD SMEAR: Hypercellular marrow with increased mature monocytes, megakaryocyte hyperplasia and mild dysplasia Mild marrow fibrosis, focally moderate (MF-1, focal MF-2) No increase in blasts Pending karyotype and NeoTYPE MDS/CMML profile See impression and comment IMPRESSION: The morphologic, immunohistochemical, and clinical findings are compatible with a diagnosis of chronic myelomonocytic leukemia. The findings are not consistent with chronic myeloid leukemia or myeloid/lymphoid neoplasms with eosinophilia and tyrosine kinase fusions, based on the absence of peripheral blood and marrow features characteristic of these entities. Correlation with pending genetic studies is recommended. Results will be reported in an addendum. COMMENT: PERIPHERAL BLOOD SMEAR CBC data: WBC 11.8 k/microL (300 cell differential: 70% neutrophils, 19% monocytes, 11% lymphocytes), Hgb 11.0 g/dL, Plt-Ct 113 k/microL, MCV 87.9 fL, RDW 14.6% Morphology: There is mild leukocytosis with absolute monocytosis (mature forms, no immature monocytic precursors are seen). Platelets are mildly decreased. There is background normocytic anemia with no significant anisopoikilocytosis. ASPIRATE SMEARS AND TOUCH PREPARATIONS Hypercellular and adequate for evaluation Morphology: The aspirate smear is hypercellular for age and shows trilineage hematopoiesis. Mature monocytes are increased. Differential cell count (300 cells, normal reference ranges noted) Blasts (0-4): 2% Promyelocytes (1-8): 0% Myelocytes and metamyelocytes (20-30): 23% Bands and segmented neutrophils (12-25): 27% Eosinophils and eosinophilic precursors (1-5): 0% Basophils and basophilic precursors (0-1): 0% Monocytes and monocytic precursors (0-2): 12% Lymphocytes (10-15): 10% Plasma cells (0-1): 0% Erythroid precursors (15-27): 24% CORE BIOPSY AND CLOT PREPARATION Adequacy: Core biopsy fragmented; clot preparation used for evaluation Cellularity: Hypercellular (80-90%) Morphology: Sections show trilineage hematopoiesis with a predominance of myeloid precursors. Megakaryocytes show small hypolobate forms. IMMUNOHISTOCHEMICAL AND SPECIAL STAINING Iron stain shows adequate storage iron. Very rare sideroblastic iron is seen, with no ring sideroblasts. CD34 and CD117 stain highlights scattered blasts comprising less than 5% of the marrow cellularity. CD163 highlights an increase in mature monocytes (estimated 10-20% of marrow cellularity). CD3 and CD20 highlight small scattered background T and B lymphocytes, respectively. Myeloperoxidase shows relative decrease in myeloid precursors. CD71 shows a relative increase in erythroid precursors. CD61 demonstrates megakaryocytic hyperplasia with a range of nuclear morphology including micromegakaryocytic forms. Reticulin stain shows diffuse wispy staining with few areas of cross-linking (MF-1, focal MF-2). Trichrome stain shows no evidence of collagen fibrosis. FLOW CYTOMETRY ANTIBODIES TESTED: CD45, CD2, CD3, CD4, CD5, CD7, CD8, CD10, CD11c, CD19, CD20, CD23, CD25, CD38, CD56, CD57, CD103, CD200, FMC-7, sKappa, sLambda, CD13, CD14, CD33, CD34, CD64, CD71, CD117, HLA-DR. PHENOTYPE: [id number] blasts are not increased (<2%). 4% of events are identified as mature lymphocytes by CD45 and side scatter characteristics. 3% of lymphocytes are B-cells, with no immunophenotypic abnormalities. T cells account for 78% of lymphocytes with a normal CD4 to CD8 ratio of 1.4. No aberrant phenotype was detected on T cells. Monocytes are increased (12%) in the aspirate sample with the vast majority (96% of monocytes) expressing CD14 without significant CD16 expression, consistent with classical monocytes (see comment). Nonclassical ([id number]-[id number], XW83-dyzmvymm) monocytes comprise less than 1% of the monocytes. Separate cytometric studies on the peripheral blood show classical monocytes comprising greater than 98% of circulating monocytes. COMMENT: While WHO 5ed recommends monocytes subset partitioning studies on peripheral blood, literature demonstrates that a decrease in nonclassical monocytes (less than 1.24%) in bone marrow specimens is associated with chronic myelomonocytic leukemia diagnosis (PMID: [id number]). The current specimen demonstrates both a decrease in nonclassical monocytes in the bone marrow aspirate and an increase in classical monocytes in the peripheral blood. Clinical Information 12/20/2024 Final Value:Thrombocytopenia Leukocytosis, unspecified type Anemia, unspecified type Gross Description 12/20/2024 Final Value:A. Bone marrow aspirate smears prepared for microscopic evaluation. B. Received in formalin labeled left hip core biopsy are three red-barkley bone core biopsies, each 0.2 cm in diameter and 0.4-0.6 cm in length which are submitted in one cassette, after being decalcified in Immunocal. Time placed into formalin is documented as 0950. C. Received in a red-topped Vacutainer, labeled bone marrow clot, is a 4 cm aggregate of red-brown clotted blood that is entirely submitted in three cassettes. Time placed into formalin is 1050 a.m. Disclaimer 12/20/2024 Final Value:Disclaimer: The following statement applies to all immunohistochemistry, in situ hybridization, molecular studies, and immunofluorescence testing, if performed on this case. The use of one or more reagents in the above tests is regulated as an analyte specific reagent (ASR). These tests were developed and their performance characteristics determined by the clinical laboratories of [facility]. They have not been cleared by the US Food and Drug Administration (FDA). The FDA has determined that such clearance or approval is not necessary. All immunostains were performed on paraffin embedded tissue. Appropriate positive and negative controls (where applicable) were run in parallel with the patient's specimen; these controls showed expected staining pattern, with acceptable intensity of staining. Immunohistochemical assays have not been validated on decalcified tissues. Results should be interpreted with caution given the raised possibility of false negativity on decalcified specimens. Pathologist Interpretation Location 12/20/2024 [facility], [address] [place] [id number], CLIA: [id number]; Joint Commission: [id number]; CAP: [id number] Final RESULT 12/20/2024 See Comment Final Lab Results Component Value Date WBC 11.8 (H) 12/20/2024 HGB 11.0 (L) 12/20/2024 HCT 34.1 (L) 12/20/2024 MCV 87.9 12/20/2024 PLT 113 (L) 12/20/2024 Lab Results Component Value Date GLUCOSE 98 12/19/2024 CALCIUM 10.2 (H) 12/19/2024 NA 142 12/19/2024 K 4.5 12/19/2024 CO2 27 12/19/2024 CL 106 12/19/2024 BUN 21 12/19/2024 CREATININE 1.25 (H) 12/19/2024 Lab Results Component Value Date IRON 66 11/09/2024 TIBC 323 11/09/2024 FERRITIN 147 11/09/2024 Imaging Reviewed: CT a/p 04/27/24 IMPRESSION: New superior endplate compression fracture L4. [...] cyst, indeterminate. Cholelithiasis. Specimen centrally. Colonic diverticulosis. - I have reviewed all available pertinent laboratory, imaging and pathology results with the patient and/or family members today. Assessment/Plan: Diagnosis Plan 1. Leukocytosis, unspecified type 2. Thrombocytopenia 3. Anemia, unspecified type 4. 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 1) CMML, low risk. Diagnosed 12/20/24 - see details of presentation as outlined above - Today, we reviewed the diagnosis, staging, natural history, prognosis, and treatment recommendations for CMML. NCCN guidelines were reviewed. - she is asymptomatic in regards to the CMML. She has mild leukocytosis, anemia and thrombocytopenia. She has low risk disease. This is not curable. Observation recommended. Can consider hypomethylating agents if needed. Monitor CBC again in 2 months. - history of iron, b12, folate deficiency: iron, b12 and folate levels optimized as of 11/09/24. Continue current iron and folate supplements 2) MGUS. IgG kappa 0.17 g/dL. - no renal insufficiency. Mild hypercalcemia. +anemia. - she has several compression fractures noted on her CT scan. She follows with Dr. Chau at [facility]. Consider DEXA scan as well. 3) stable adrenal mass - stable since [address] from 11/16/24. All questions were answered to the satisfaction of the patient and/or family. Return to office in 2 months or sooner if worrisome signs/symptoms arise. Marion Mccann, DO Hematology/Medical Oncology [1] Past Medical History: Diagnosis Date Adrenal nodule (HCC) 2018 left [address]- unchanged in 05/2024 CT Allergic rhinitis Anticoagulant long-term use 2010 now Eliquis Asthma (HHS/HCC) Atrial fibrillation (HCC) 2010 cardioversion 2009 and 2010, 2016 LVEF 20-25% - nml LVEF 03/07 Breast cancer screening 09/2024 abn right exam due to hematoma d/t [...] source Hypercholesteremia 2013 Menopause 2001 Mitral regurgitation mod per 03/07 ECHO Obesity CHRISTIANNE on CPAP 2009 Pulmonary HTN (HCC) 2017 Severe per ECHO Thrombocytopenia 12/2023 Venous insufficiency hx of leg ulcers [2] Past Surgical History: Procedure Laterality Date APPENDECTOMY 1970 BREAST BIOPSY Right 07/24/2021 CAPSULOTOMY, HAND 2006 MARTY/DCC 08/22 also and 03/29 as well. CAPSULOTOMY, HAND 2014 x8 CATARACT EXTRACTION Bilateral 2013 COLONOSCOPY 03/2017 divert ds - Turowski- due 2027 OVARIAN CYST REMOVAL Right 1984 TUBAL LIGATION 1979 [3] Social History Tobacco Use Smoking status: Never Smokeless tobacco: Never Vaping Use Vaping status: Never Used Substance Use Topics Alcohol use: No Drug use: No Comment: Caffeine: Maybe just in soda or tea [4] Family History Problem Relation Name Age of [...] No Known Problems Paternal Grandfather age 100 [5] Allergies Allergen Reactions Bee Venom Other Honey Bee Venom Morphine Other Oxycodone Other reaction(s): Mental Status Change Did not like the feeling Statins Other Muscle aches Tetanus Toxoid-Containing Vaccines Swelling Other reaction(s): Unknown [6] Current Outpatient Medications Medication Sig Dispense Refill acetaminophen (Tylenol 8 [...] Administer 1 spray into one nostril daily. (Patient not taking: Reported on 11/09/2024) Calcium Carbonate-Vitamin D (CALCIUM-VITAMIN D PO) Take by mouth. cetirizine (ZyrTEC) 10 MG tablet Take 10 mg by mouth Nightly. dilTIAZem (Cardizem) 60 MG immediate release tablet Take 1 tablet (60 mg) by mouth every 8 hours for 270 doses. 270 tablet 1 Docusate Sodium (DSS) 100 MG capsule 100 mg. Dulera 100-5 MCG/ACT inhaler Inhale 2 puffs 2 times daily. Please see attached for detailed directions 13 g 1 ferrous sulfate 324 (65 Fe) MG EC tablet One bid on empty stomach 30 min before meals or 2 hours after 180 tablet 1 Fluticasone-Salmeterol 250-50 MCG/ACT aerosol powder Inhale 1 Inhalation 2 times daily. 60 each 3 folic acid (Folvite) 1 MG tablet Take 1 tablet (1 mg) by mouth daily. 90 tablet 1 furosemide (Lasix) 40 MG tablet Take 1 tablet (40 mg) by mouth 2 times daily. 180 tablet 1 lisinopril 20 MG tablet Take 1 tablet (20 mg) by mouth daily. 90 tablet 1 metoprolol tartrate (Lopressor) 25 MG tablet 3 tabs BID 540 tablet 1 miconazole (Micotin) 2 % powder Apply topically 2 times daily. nystatin (Mycostatin) 292098 UNIT/GM powder Apply topically 3 times daily. 60 g 2 sertraline (Zoloft) 50 MG tablet TAKE 1 TABLET BY MOUTH EVERY DAY IN EARLY EVENING 90 tablet 1 spironolactone (Aldactone) 25 MG tablet Take 1 tablet (25 mg) by mouth daily. 90 tablet 1 tiotropium (Spiriva Respimat) 2.5 MCG/ACT inhaler Inhale 2 puffs daily. 4 g 11 No current facility-administered medications for this visit. documented in this encounter [place] [id number] History of Present illness Narrative Hematology/Oncology Office Visit Consultation/Referral Reason: leukocytosis, anemia, thrombocytopenia, left adrenal mass. Diagnosed with CMML on 12/20/24 Referred by: Dr. Ibarra HPI: Alta Baker is a 74 y.o. female who was referred to hematology on 11/09/24 for evaluation of leukocytosis, anemia, thrombocytopenia and a left adrenal mass. She has several medical issues including COPD, CHF, HTN, obesity, atrial fibrillation on eliquis, history of PE. She reported a 60 lb weight loss over the past year along with cough and shortness of breath. Low platelets: she has has low platelets for several years, dating back to at least 2019. Plts 120-130 range. When she was hospitalized with pneumonia in Apr 2024, the platelets decreased but recovered back to her baseline. She has history of easy bleeding/bruising. Anemia, normocytic: she has history of iron, b12 and folate deficiency. She had an abnormal SPEP 06/21/24 which showed a small m spike of 0.16 g/dL. Bone marrow biopsy planned as outlined below. She was evaluated by GI but did not wish to go through with an EGD. She denies any blood in her stools. Takes iron and folic acid supplements. Leukocytosis, monocyte predominant. This is new since Apr 2024. Mild splenomegaly noted on CT scan in Apr 2024. Flow cytometry 11/09/24 showed findings concerning for an underlying MDS/MPD and a bone marrow biopsy was recommended. Left adrenal mass, 4-5cm. Stable on imaging from 11/16/24 dating back to 2018 at least. Stable splenomegaly. 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 Appears to be low risk subgroup. She has pathogenic variants in ASXL1, CBL, EZH2, and TET2. She is asymptomatic and counts are stable. Observation recommended. She is accompanied by her daughter today. No B symptoms. Weight stable. Appetite is good. Medical History[1] Surgical History[2] Patient Active Problem List Diagnosis Date Noted Nonrheumatic tricuspid valve regurgitation 05/31/2024 Nonrheumatic aortic valve insufficiency 05/31/2024 Major depressive disorder in remission Essential hypertension Cor pulmonale, chronic (HCC) 02/17/2024 Thrombocytopenia 12/2023 COPD (chronic obstructive pulmonary disease) ([facility]) 09/22/2022 Gallstone 2018 Depression 07/01/2021 Heart failure with improved ejection fraction (HFimpEF) ([facility]) 06/25/2020 Morbidly obese ([facility]) 10/25/2018 History of pulmonary embolism 07/20/2016 Hypercholesteremia 04/26/2016 Asthma ([facility]) 01/31/2016 Venous insufficiency 01/31/2016 Anticoagulant long-term use 11/23/2014 Atrial fibrillation ([facility]) 11/23/2014 Mitral regurgitation 11/23/2014 Allergic rhinitis 11/23/2014 Pulmonary HTN ([facility]) 11/23/2014 CHRISTIANNE on CPAP 11/23/2014 Social History[3] Family History[4] Allergies[5] Current Medications[6] Review of Systems Constitutional: Positive for appetite change, fatigue and unexpected weight change. Negative for chills, diaphoresis and fever. HENT: Negative for dental problem, mouth sores, nosebleeds, sneezing, sore throat, tinnitus, trouble swallowing and voice change. Eyes: Negative for photophobia, pain and visual disturbance. Respiratory: Negative for cough, shortness of breath and wheezing. Cardiovascular: Negative for chest pain, palpitations and leg swelling. Gastrointestinal: Negative for abdominal distention, abdominal pain, blood in stool, constipation, diarrhea, nausea and vomiting. Endocrine: Negative for cold intolerance and heat intolerance. Genitourinary: Negative for difficulty urinating, frequency, hematuria and urgency. Musculoskeletal: Positive for arthralgias and back pain. Negative for gait problem and myalgias. Skin: Negative for pallor and rash. Allergic/Immunologic: Negative for immunocompromised state. Neurological: Negative for dizziness, syncope, weakness, light-headedness, numbness and headaches. Hematological: Negative for adenopathy. Bruises/bleeds easily. Psychiatric/Behavioral: Negative for confusion and sleep disturbance. The patient is not nervous/anxious. All other systems reviewed and are negative. Vitals: 01/10/25 1437 BP: 138/78 BP Location: Right arm Patient Position: Sitting Pulse: 98 Temp: 36.6 C (97.8 F) Weight: 99.6 kg (219 lb 9.6 oz) Height: 1.524 m (5') ECOG PS = 2 Physical Exam Vitals and nursing note reviewed. Constitutional: General: She is not in acute distress. Appearance: She is obese. HENT: Head: Normocephalic. Eyes: General: No scleral icterus. Conjunctiva/sclera: Conjunctivae normal. Cardiovascular: Rate and Rhythm: Normal rate and regular rhythm. Pulmonary: Effort: Pulmonary effort is normal. No respiratory distress. Abdominal: General: Abdomen is flat. There is no distension. Musculoskeletal: General: No swelling. Skin: Findings: No rash. Neurological: General: No focal deficit present. Mental Status: She is alert and oriented to person, place, and time. Psychiatric: Mood and Affect: Mood normal. Thought Content: Thought content normal. Imaging/Labs: Hospital Outpatient Visit on 12/20/2024 Component Date Value Ref Range Status Auto WBC 12/20/2024 11.8 (H) 3.6 - 10.7 10*3/uL Final RBC 12/20/2024 3.88 3.80 - 5.20 10*6/uL Final Hemoglobin 12/20/2024 11.0 (L) 11.7 - 16.0 g/dL Final Hematocrit 12/20/2024 34.1 (L) 35.0 - 47.0 % Final MCV 12/20/2024 87.9 77.0 - 99.0 fL Final MCH 12/20/2024 28.4 26.0 - 34.0 pg Final MCHC 12/20/2024 32.3 30.5 - 36.0 % Final RDW 12/20/2024 14.6 11.5 - 15.0 % Final Platelets 12/20/2024 113 (L) 140 - 440 10*3/uL Final MPV 12/20/2024 12.3 9.0 - 12.7 fL Final Neutrophils % 12/20/2024 58 38 - 82 % Final Bands % 12/20/2024 1 (H) <=0 % Final Lymphocytes % 12/20/2024 13 (L) 15 - 45 % Final Monocytes % 12/20/2024 28 (H) 5 - 13 % Final Absolute Neutrophil Count 12/20/2024 7.0 1.8 - 7.0 10*3/uL Final Segs Absolute 12/20/2024 7.0 1.8 - 7.5 10*3/uL Final Bands Absolute 12/20/2024 0.1 (H) <=0.0 10*3/uL Final Lymphocytes Absolute 12/20/2024 1.5 1.0 - 4.3 10*3/uL Final Monocytes Absolute 12/20/2024 3.3 (H) 0.0 - 0.9 10*3/uL Final Anisocytosis 12/20/2024 Slight (A) (none) Final Poikilocytes 12/20/2024 Slight (A) (none) Final Ovalocytes 12/20/2024 Slight (A) (none) Final WBC Morphology 12/20/2024 Normal Final PLT Morphology 12/20/2024 Normal Final Total Counted 12/20/2024 100 Final Neutrophils Manual 12/20/2024 58 Final Lymphocytes Manual 12/20/2024 13 Final Monocytes Manual 12/20/2024 28 Final Bands Manual 12/20/2024 1 Final Differential Method 12/20/2024 Manual differential performed Final Case Report 12/20/2024 Final Value:Bone Marrow Case: [id number] Authorizing Provider: Marion Mccann DO Collected: 12/20/2024 0950 Ordering Location: [facility] CT Imaging Received: 12/20/2024 0905 Pathologist: Rachel Avery MD MPH Specimens: A) - Bone Marrow Aspirate, Left hip B) - Iliac Crest, Left, left hip C) - Bone Marrow Clot, left hip Addendum 2 12/20/2024 Final Value:MDS FISH is negative. Please see [facility] report [id number] for MDS Extended testing ordered by Dr. Marion Mccann. Report has been scanned into the patient's chart. Addendum 12/20/2024 Final Value:Conventional chromosome analysis is normal. NGS revealed pathogenic variants in ASXL1, CBL, EZH2, and TET2. The detected mutations support a clonal myeloid neoplasm consistent with chronic myelomonocytic leukemia (CMML) in the appropriate morphologic and clinical context. Mutations in TET2 and ASXL1 are among the most frequent in CMML, and their coexistence is highly specific for this entity. The CBL mutation represents a TOBI-pathway alteration commonly seen in proliferative forms of CMML, and EZH2 mutations have been associated with adverse prognostic impact in myeloid neoplasms. Please see [employer] report [id number] for Cytogenetics testing and report [id number] for MDS/CMML Profile ordered by Dr. Marion Mccann. Reports have been scanned into the patient's chart. Final Diagnosis 12/20/2024 Final Value:BONE MARROW - CORE BIOPSY, CLOT SECTION, TOUCH PREPARATIONS, ASPIRATE SMEAR, AND PERIPHERAL BLOOD SMEAR: Hypercellular marrow with increased mature monocytes, megakaryocyte hyperplasia and mild dysplasia Mild marrow fibrosis, focally moderate (MF-1, focal MF-2) No increase in blasts Pending karyotype and NeoTYPE MDS/CMML profile See impression and comment IMPRESSION: The morphologic, immunohistochemical, and clinical findings are compatible with a diagnosis of chronic myelomonocytic leukemia. The findings are not consistent with chronic myeloid leukemia or myeloid/lymphoid neoplasms with eosinophilia and tyrosine kinase fusions, based on the absence of peripheral blood and marrow features characteristic of these entities. Correlation with pending genetic studies is recommended. Results will be reported in an addendum. COMMENT: PERIPHERAL BLOOD SMEAR CBC data: WBC 11.8 k/microL (300 cell differential: 70% neutrophils, 19% monocytes, 11% lymphocytes), Hgb 11.0 g/dL, Plt-Ct 113 k/microL, MCV 87.9 fL, RDW 14.6% Morphology: There is mild leukocytosis with absolute monocytosis (mature forms, no immature monocytic precursors are seen). Platelets are mildly decreased. There is background normocytic anemia with no significant anisopoikilocytosis. ASPIRATE SMEARS AND TOUCH PREPARATIONS Hypercellular and adequate for evaluation Morphology: The aspirate smear is hypercellular for age and shows trilineage hematopoiesis. Mature monocytes are increased. Differential cell count (300 cells, normal reference ranges noted) Blasts (0-4): 2% Promyelocytes (1-8): 0% Myelocytes and metamyelocytes (20-30): 23% Bands and segmented neutrophils (12-25): 27% Eosinophils and eosinophilic precursors (1-5): 0% Basophils and basophilic precursors (0-1): 0% Monocytes and monocytic precursors (0-2): 12% Lymphocytes (10-15): 10% Plasma cells (0-1): 0% Erythroid precursors (15-27): 24% CORE BIOPSY AND CLOT PREPARATION Adequacy: Core biopsy fragmented; clot preparation used for evaluation Cellularity: Hypercellular (80-90%) Morphology: Sections show trilineage hematopoiesis with a predominance of myeloid precursors. Megakaryocytes show small hypolobate forms. IMMUNOHISTOCHEMICAL AND SPECIAL STAINING Iron stain shows adequate storage iron. Very rare sideroblastic iron is seen, with no ring sideroblasts. CD34 and CD117 stain highlights scattered blasts comprising less than 5% of the marrow cellularity. CD163 highlights an increase in mature monocytes (estimated 10-20% of marrow cellularity). CD3 and CD20 highlight small scattered background T and B lymphocytes, respectively. Myeloperoxidase shows relative decrease in myeloid precursors. CD71 shows a relative increase in erythroid precursors. CD61 demonstrates megakaryocytic hyperplasia with a range of nuclear morphology including micromegakaryocytic forms. Reticulin stain shows diffuse wispy staining with few areas of cross-linking (MF-1, focal MF-2). Trichrome stain shows no evidence of collagen fibrosis. FLOW CYTOMETRY ANTIBODIES TESTED: CD45, CD2, CD3, CD4, CD5, CD7, CD8, CD10, CD11c, CD19, CD20, CD23, CD25, CD38, CD56, CD57, CD103, CD200, FMC-7, sKappa, sLambda, CD13, CD14, CD33, CD34, CD64, CD71, CD117, HLA-DR. PHENOTYPE: [id number] blasts are not increased (<2%). 4% of events are identified as mature lymphocytes by CD45 and side scatter characteristics. 3% of lymphocytes are B-cells, with no immunophenotypic abnormalities. T cells account for 78% of lymphocytes with a normal CD4 to CD8 ratio of 1.4. No aberrant phenotype was detected on T cells. Monocytes are increased (12%) in the aspirate sample with the vast majority (96% of monocytes) expressing CD14 without significant CD16 expression, consistent with classical monocytes (see comment). Nonclassical (ON94-yolgutfl, OZ62-[id number]) monocytes comprise less than 1% of the monocytes. Separate cytometric studies on the peripheral blood show classical monocytes comprising greater than 98% of circulating monocytes. COMMENT: While WHO 5ed recommends monocytes subset partitioning studies on peripheral blood, literature demonstrates that a decrease in nonclassical monocytes (less than 1.24%) in bone marrow specimens is associated with chronic myelomonocytic leukemia diagnosis (PMID: [id number]). The current specimen demonstrates both a decrease in nonclassical monocytes in the bone marrow aspirate and an increase in classical monocytes in the peripheral blood. Clinical Information 12/20/2024 Final Value:Thrombocytopenia Leukocytosis, unspecified type Anemia, unspecified type Gross Description 12/20/2024 Final Value:A. Bone marrow aspirate smears prepared for microscopic evaluation. B. Received in formalin labeled left hip core biopsy are three red-barkley bone core biopsies, each 0.2 cm in diameter and 0.4-0.6 cm in length which are submitted in one cassette, after being decalcified in Immunocal. Time placed into formalin is documented as 0950. C. Received in a red-topped Vacutainer, labeled bone marrow clot, is a 4 cm aggregate of red-brown clotted blood that is entirely submitted in three cassettes. Time placed into formalin is 1050 a.m. Disclaimer 12/20/2024 Final Value:Disclaimer: The following statement applies to all immunohistochemistry, in situ hybridization, molecular studies, and immunofluorescence testing, if performed on this case. The use of one or more reagents in the above tests is regulated as an analyte specific reagent (ASR). These tests were developed and their performance characteristics determined by the clinical laboratories of [facility]. They have not been cleared by the US Food and Drug Administration (FDA). The FDA has determined that such clearance or approval is not necessary. All immunostains were performed on paraffin embedded tissue. Appropriate positive and negative controls (where applicable) were run in parallel with the patient's specimen; these controls showed expected staining pattern, with acceptable intensity of staining. Immunohistochemical assays have not been validated on decalcified tissues. Results should be interpreted with caution given the raised possibility of false negativity on decalcified specimens. Pathologist Interpretation Location 12/20/2024 [facility], [address] [place] [id number], CLIA: [id number]; Joint Commission: [id number]; CAP: [id number] Final RESULT 12/20/2024 See Comment Final Lab Results Component Value Date WBC 11.8 (H) 12/20/2024 HGB 11.0 (L) 12/20/2024 HCT 34.1 (L) 12/20/2024 MCV 87.9 12/20/2024 PLT 113 (L) 12/20/2024 Lab Results Component Value Date GLUCOSE 98 12/19/2024 CALCIUM 10.2 (H) 12/19/2024 NA 142 12/19/2024 K 4.5 12/19/2024 CO2 27 12/19/2024 CL 106 12/19/2024 BUN 21 12/19/2024 CREATININE 1.25 (H) 12/19/2024 Lab Results Component Value Date IRON 66 11/09/2024 TIBC 323 11/09/2024 FERRITIN 147 11/09/2024 Imaging Reviewed: CT a/p 04/27/24 IMPRESSION: New superior endplate compression fracture L4. [...] cyst, indeterminate. Cholelithiasis. Specimen centrally. Colonic diverticulosis. - I have reviewed all available pertinent laboratory, imaging and pathology results with the patient and/or family members today. Assessment/Plan: Diagnosis Plan 1. Leukocytosis, unspecified type 2. Thrombocytopenia 3. Anemia, unspecified type 4. 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 August 28, 2024 12:53pm [facility] Medical Records Department [address] [place] [address] Discharge Summary 08/28/24 1241 MR#: [id number] Acct: [id number] Name: ALTA BAKER Rep #:[id number] : 1950 74 From: [place] MD PCP: Dr. Kory Ibarra DO Status:[facility] Location: [place] [id number] Providers Date of Admission: 08/24/24 Primary Care Physician: Dr. Kory Ibarra DO Reason For Visit: ACUTE HYPOXIC RESPIRATORY FAILURE 2/2 RLL PNA Diagnosis Discharge Diagnosis (1) Acute on chronic heart failure with reduced ejection fraction (HFrEF, <= 40%): Status: Chronic Code(s): I50.23 - Acute on chronic systolic (congestive) heart failure Medications at Discharge Home Medications furosemide 40 mg tablet 40 mg PO BID diuretic 10/27/13 atorvastatin 10 mg tablet 10 mg PO [...] 25 mg) PO BID #180 tabs 06/05/24 tiotropium bromide 18 mcg capsule with inhalation device (Spiriva with HandiHaler) 1 cap inhalation DAILY #30 inhalations 06/05/24 calcitonin (salmon) 200 unit/actuation nasal spray 1 spray DAILY 08/24/24 ferrous sulfate 324 mg (65 mg iron) tablet,delayed release 324 mg PO BID 08/24/24 ipratropium 0.5 mg-albuterol 3 mg (2.5 mg base)/3 mL nebulization soln 3 ml inhalation 08/24/24 lisinopril 20 mg tablet 20 mg PO DAILY 08/24/24 mometasone-formoterol HFA 100 mcg-5 mcg/actuation aerosol inhaler (Dulera) inhalation 08/24/24 ondansetron HCl 4 mg tablet 4 mg PO Q12H PRN PRN nausea/vomiting 08/24/24 potassium chloride 10 mEq tablet,extended release(part/cryst) 10 meq PO BID 08/24/24 potassium chloride 20 mEq tablet,extended release(part/cryst) 20 meq PO DAILY 08/24/24 risedronate 35 mg tablet mg PO 08/24/24 tiotropium bromide 2.5 mcg/actuation mist for inhalation (Spiriva Respimat) 2 puff inhalation DAILY 08/24/24 cefdinir 300 mg capsule 300 mg PO BID 3 days #6 caps 08/28/24 prednisone 10 mg tablet 10 mg PO DAILY #20 tabs 08/28/24 Hospital Course Operations None Procedures None Summary of Care Provided Minutes Spent on Discharge: 31 Hospital Course: Per HPI: FABRICIO CARDOZO, is a 85 M who [facility] with worsening shortness of breath with exertion. Patient has history of COPD, follows with Mary Escobedo. Is on home nocturnal oxygen through CPAP but has never been on oxygen during the day. He and his take care of their grandson frequently. They note that he was sick about 2 weeks agowithout respiratory symptoms and then both he and his developed the same symptoms about 4 to 5 days later. They were both placed on doxycycline and he was started on a steroid. His improved well but he did not seem to improvemuch. He has a nebulizer machine at home and was taking albuterol 3 times dailyfor the past several days but states he has continued to have significant shortness of breath with exertion. Initially had a cough with greenish sputum production but the mucus has loosened and he now is producing primarily clearishsputum. He denies any fevers or chills throughout that time. On arrival to the ED today he was satting in the low 90s on room air at rest. He was hypertensive to the 190s to 200s systolic. Otherwise was afebrile and innormal sinus rhythm. Labs notable for WBC count 24,000, though notably he was recently on steroids. Troponin trend 129 > 111. COVID/flu/RSV negative. Chestx-ray showed prominent chronic lung changes with moderate hyperinflation but no evidence of pulmonary edema or other findings concerning for pneumonia. D-dimerwas negative. He was given a DuoNeb treatment and started on IV steroids and antibiotics, and hospitalist was contacted for admission. I saw the patient at bedside in the ED, was present. Patient was sitting up comfortably at the edge of the bed and had no increased work of breathing on 2 L nasal cannula at rest. He did report little improvement in his shortness of breath with exertionespecially with treatments recently and this has been frustrating for him. He otherwise denies any other acute concerns at this time. Hospital Course: 1. Acute hypoxic respiratory sufficiency secondary to acute on chronic systolicCHF complicated by chronic A-fib with RVR in the setting of a parainfluenza infection/essential HTN/HLD?74-year-old female presented to the hospital with increasing shortness of breath and oxygen requirement. She states that she usedto require 2 L nasal cannula continuously about 6 months ago but then since thenhas not really been using it. Amatory pulse ox today does demonstrate need for 2 L both at rest and with activity. Echocardiogram demonstrates an EF of 40% with mild LVH and a PASP of 52 mmHg consistent with moderate pulmonary hypertension. She is already on 40 mg of Lasix p.o. twice daily and she did have good diuresis with IV dosing. She was also found to have parainfluenza infection complicating her respiratory status and she was started on steroids and antibiotics. Unfortunately we were not able to obtain a sputum sample to definitively rule out a bacterial pneumonia therefore we will complete 3 more days of cefdinir 300 mg p.o. twice daily on discharge. I discussed with her theplan for discharge today she expressed understanding of the risks and benefits of going home and would like to go home today. 2. Chronic COPD, obstructive sleep apnea, anxiety, depression, iron deficiency anemia are all chronic medical conditions which complicate her care. Her home medications were continued where appropriate Physical Exam Narrative General: Alert, Oriented x3, Cooperative, No apparent distress HEENT: Atraumatic, PERRLA, EOMI, Normocephalic Oral: Moist Mucosa Neck: Supple, No JVD Lungs: Diminished, Normal air movement, no rhonchi, No wheeze, No rales Cardiovascular: Regular rate, Regular Rhythm, Normal S1, Normal S2, No murmurs Abdomen: Soft, Non Tender, Non-Distended, No Hepato-splenomegaly Extremities: Edema, Capillary Refill Less than 3 Seconds Skin: No rashes, No breakdown Musculoskeletal: No Tenderness to Palpation of Joints or Extremities Neurological: No focal neurological deficits, Motor Exam 5/5 strength throughout, Sensory exam intact to light touch and pain Psych/Mental Status: Normal Affect, Appropriate Weight / BMI Weight Weight: 208 lb 15.971 oz Body Mass Index (BMI) 42.2 ABG / Lab / Microbiology Data 08/28/24 04:40 08/28/24 04:40 Laboratory: Laboratory Results - last 24 hr 08/28/24 04:40: WBC 11.7 H, RBC 3.15 L, Hgb 8.7 L, Hct 28.9 L, MCV 91.7, MCH 27.6, MCHC 30.1 L, RDW Std Deviation 48.2 H, RDW Coeff of Giles 14.6, Plt Count 94L, MPV 13.0 H, Immature Gran % (Auto) 3.800 H, Neut % (Auto) 79.3 H, Lymph % (Auto) 5.9 L, [place] % (Auto) 10.8 H, Eos % (Auto) 0.0, Baso % (Auto) 0.2, Absolute Neuts (auto) 9.3 H, Absolute Lymphs (auto) 0.69 L, Nucleated RBC % 0, Sodium 145, Potassium 4.2, Chloride 99, Carbon Dioxide 37.3 H, Anion Gap 9, BUN 27 H, Creatinine 0.71, Estim Creat Clear Calc 64.48, Est GFR (MDRD) Non-Af 90, BUN/Creatinine Ratio 37.9 H, Glucose 141 H, Calcium 10.1 Microbiology: Microbiology 08/26/24 21:00 Mucosa - Nose SARS-CoV-2, Influenza & RSV (PCR) - Final 08/25/24 01:05 Mucosa - Nasopharyngeal Respiratory Panel (PCR) - Final Parainfluenza 4 08/24/24 19:38 Urine, Clean Catch Legionella Antigen - Final 08/24/24 19:38 Urine, Clean Catch Streptococcus pneumoniae Antigen (M - Final D/C Instructions Discharge Diet: Low fat / Low cholesterol Call your doctor if you observe: Fever of 101 or Higher, Shortness of breath, Dizziness, Fainting spells, Swelling in the ankles, Chest pain and Increased palpitations (irregular heartbeat) DC O2, CPAP, BIPAP Needs Home O2 Discharge instructions: No Meaningful Use Info Meaningful Use Meaningful Use Diagnoses (Choose all that apply): None applicable Ischemic Stroke Statin Dosing Therapy Reference: STATIN [...] Simvastatin 80mg Discharge Plan Admission Admit Date/Time: 08/24/24 23:03 Attending Provider: Jimbo Ibarra Primary Care Provider: Kory Ibarra Consulting Providers: Jemima Poe; John Paul Will Instructions Additional Instructions / Restrictions: Follow-up with your PCP to clarify the medications which were supposed to be taking as you have had a couple of duplications when we were doing our medication reconciliation on admission and discharge Discharge Orders/Prescriptions Prescriptions: New prednisone 10 mg tablet 10 mg PO DAILY Qty: 20 0RF Rx Instructions: 3 tablets daily for 3 days then 2 tablets daily for 3 days then 1 tablet daily for 3 days then half tablet daily for 4 days cefdinir 300 mg capsule 300 mg PO BID 3 Days Qty: 6 0RF Continued folic acid 1 mg tablet 1 mg PO DAILY furosemide 40 MG tablet 40 mg PO BID Patient Comments: Water pill sertraline 50 mg tablet 50 mg PO QHS Patient Comments: Anti-depressant/anxiety atorvastatin 10 MG tablet 10 mg PO [...] 100 mg PO BID PRN (Reason: constipation) diltiazem HCl 60 mg Tablet 60 mg PO Q8 Qty: 120 0RF metoprolol tartrate 25 mg Tablet 75 mg PO BID Qty: 180 0RF tiotropium bromide [Spiriva with HandiHaler] 18 mcg capsule, w/inhalation device 1 cap inhalation DAILY Qty: 30 0RF Rx Instructions: puncture 1 cap using device; one dose = 2 inhalations albuterol sulfate 90 mcg/actuation HFA aerosol inhaler 1 inh inhalation Q6H Qty: 6.7 0RF ipratropium-albuterol 0.5 mg-3 mg(2.5 mg base)/3 mL solution for nebulization 3 ml inhalation lisinopril 20 mg tablet 20 mg PO DAILY ondansetron HCl 4 mg tablet 4 mg PO Q12H PRN PRN (Reason: nausea/vomiting) potassium chloride 20 mEq tablet,ER particles/crystals 20 meq PO DAILY calcitonin (salmon) 200 unit/actuation spray,non-aerosol 1 spray DAILY risedronate 35 mg tablet PO potassium chloride 10 mEq tablet,ER particles/crystals 10 meq PO BID ferrous sulfate 324 mg (65 mg iron) tablet,delayed release (DR/EC) 324 mg PO BID Dulera 100-5 mcg/actuation HFA aerosol inhaler inhalation Spiriva Respimat 2.5 mcg/actuation mist 2 puff INHALATION DAILY Discontinued lisinopril 10 MG tablet 20 mg PO DAILY Patient Comments: BLOOD PRESSURE/HEART azithromycin 250 mg tablet PO metoprolol tartrate 100 mg tablet 200 mg PO Referrals / Follow Up: Kory Ibarra DO [Primary Care Provider] - 09/13/24 10:00 am Disposition Disposition (needs filled in before D/C Order can be placed): Home, Self Care Charges/Coding Visit Charges Inpatient E&M: 57638 Disch Hosp >30min 08/28/24 1253 <Electronically signed by Jimbo Ibarra MD> Cosigner Signature (if applicable): CC: Dr. Kory Ibarra DO; Dr. Jimbo Ibarra MD~ Signed [facility] Work Phone: [phone] Discharge summary [facility] Medical Records Department [address] [place] [address] Discharge Summary 08/28/24 1241 MR#: [id number] Acct: [id number] Name: ALTA BAKER Rep #:[id number] : 1950 74 From: [place]bo [place] MD PCP: Dr. Kory Ibarra DO Status:AD [facility] Prov[facility] Date of Admission: 08/24/24 Primary Care Physician: Dr. Kory Ibarra DO Reason For Visit: ACUTE HYPOXIC RESPIRATORY FAILURE 2/2 RLL PNA Diagnosis Discharge Diagnosis (1) Acute on chronic heart failure with reduced ejection fraction (HFrEF, <= 40%): Status: Chronic Code(s): I50.23 - Acute on chronic systolic (congestive) heart failure Medications at Discharge Home Medications furosemide 40 mg tablet 40 mg PO BID diuretic 10/27/13 atorvastatin 10 mg tablet 10 mg PO [...] 25 mg) PO BID #180 tabs 06/05/24 tiotropium bromide 18 mcg capsule with inhalation device (Spiriva with HandiHaler) 1 cap inhalationDAILY #30 inhalations 06/05/24 calcitonin (salmon) 200 unit/actuation nasal spray 1 spray DAILY 08/24/24 ferrous sulfate 324 mg (65 mg iron) tablet,delayed release 324 mg PO BID 08/24/24 ipratropium 0.5 mg-albuterol 3 mg (2.5 mg base)/3 mL nebulization soln 3 ml inhalation 08/24/24 lisinopril 20 mg tablet 20 mg PO DAILY 08/24/24 mometasone-formoterol HFA 100 mcg-5 mcg/actuation aerosol inhaler (Dulera) inhalation 08/24/24 ondansetron HCl 4 mg tablet 4 mg PO Q12H PRN PRN nausea/vomiting 08/24/24 potassium chloride 10 mEq tablet,extended release(part/cryst) 10 meq PO BID 08/24/24 potassium chloride 20 mEq tablet,extended release(part/cryst) 20 meq PO DAILY 08/24/24 risedronate 35 mg tablet mg PO 08/24/24 tiotropium bromide 2.5 mcg/actuation mist for inhalation (Spiriva Respimat) 2 puff inhalation DAILY08/24/24 cefdinir 300 mg capsule 300 mg PO BID 3 days #6 caps 08/28/24 prednisone 10 mg tablet 10 mg PO DAILY #20 tabs 08/28/24 Hospital Course Operations None Procedures None Summary of Care Provided Minutes Spent on Discharge: 31 Hospital Course: Per HPI: FABRICIO CARDOZO, is a 85 M who presented to [facility] on 08/22/24 with worsening shortness of breath with exertion. Patient has history of COPD, follows with Mary Escobedo. Is on home nocturnal oxygen through CPAP but has never been on oxygen during the day. He and hiswife take care of their grandson frequently. They note that he was sick about 2 weeks agowithout respiratory symptoms and then both he and his developed the same symptoms about 4 to 5 days later. They were both placed on doxycycline and he was started on a steroid. His improved well but he did not seem to improvemuch. He has a nebulizer machine at home and was taking albuterol 3 times dailyfor the past several days but states he has continued to have significant shortness of breath with exertion. Initially had a cough with greenish sputum production but the mucus has loosened and henow is producing primarily clearishsputum. He denies any fevers or chills throughout that time. On arrival to the ED today he was satting in the low 90s on room air at rest. He was hypertensive to the 190s to 200s systolic. Otherwise was afebrile and innormal sinus rhythm. Labs notable for WBC count 24,000, though notably he was recently on steroids. Troponin trend 129 > 111. COVID/flu/RSVnegative. Chestx- ray showed prominent chronic lung changes with moderate hyperinflation but no evidence of pulmonary edema or other findings concerning for pneumonia. D- dimerwas negative. He was given a DuoNeb treatment and started on IV steroids and antibiotics, and hospitalist was contacted for admission. I saw the patient at bedside in the ED, was present. Patient was sitting up comfortably at the edge of the bed and had no increased work of breathing on 2 L nasal cannula at rest. He did report little improvement in his shortness of breath with exertionespecially with treatments recently and this has been frustrating for him. He otherwise denies any other acute concerns at this time. Hospital Course: 1. Acute hypoxic respiratory sufficiency secondary to acute on chronic systolicCHF complicated by chronic A-fib with RVR in the setting of a parainfluenza infection/essential HTN/HLD?74-year-old female presented to the hospital with increasing shortness of breath and oxygen requirement. She states that she usedto require 2 L nasal cannula continuously about 6 months ago but then since thenhas notreally been using it. Amatory pulse ox today does demonstrate need for 2 L both at rest and with activity. Echocardiogram demonstrates an EF of 40% with mild LVH and a PASP of 52 mmHg consistent with moderate pulmonary hypertension. She is already on 40 mg of Lasix p.o. twice daily and she did havegood diuresis with IV dosing. She was also found to have parainfluenza infection complicating her respiratory status and she was started on steroids and antibiotics. Unfortunately we were not able toobtain a sputum sample to definitively rule out a bacterial pneumonia therefore we will complete 3 more days of cefdinir 300 mg p.o. twice daily on discharge. I discussed with her theplan for discharge today she expressed understanding of the risks and benefits of going home and would like to go home today. 2. Chronic COPD, obstructive sleep apnea, anxiety, depression, iron deficiency anemia are all chronic medical conditions which complicate her care. Her home medications were continued where appropriate Physical Exam Narrative General: Alert, Oriented x3, Cooperative, No apparent distress HEENT: Atraumatic, PERRLA, EOMI, Normocephalic Oral: Moist Mucosa Neck: Supple, No JVD Lungs: Diminished, Normal air movement, no rhonchi, No wheeze, No rales Cardiovascular: Regular rate, Regular Rhythm, Normal S1, Normal S2, No murmurs Abdomen: Soft, Non Tender, Non-Distended, No Hepato-splenomegaly Extremities: Edema, Capillary Refill Less than 3 Seconds Skin: No rashes, No breakdown Musculoskeletal: No Tenderness to Palpation of Joints or Extremities Neurological: No focal neurological deficits, Motor Exam 5/5 strength throughout, Sensory exam intact to light touch and pain Psych/Mental Status: Normal Affect, Appropriate Weight / BMI Weight Weight: 208 lb 15.971 oz Body Mass Index (BMI) 42.2 ABG / Lab / Microbiology Data 08/28/24 04:40 08/28/24 04:40 Laboratory: Laboratory Results - last 24 hr 08/28/24 04:40: WBC 11.7 H, RBC 3.15 L, Hgb 8.7 L, Hct 28.9 L, MCV 91.7, MCH 27.6, MCHC 30.1 L, RDWStd Deviation 48.2 H, RDW Coeff of Giles 14.6, Plt Count 94L, MPV 13.0 H, Immature Gran % (Auto) 3.800 H, Neut % (Auto) 79.3 H, Lymph % (Auto) 5.9 L, [place] % (Auto) 10.8 H, Eos % (Auto) 0.0, Baso % (Auto) 0.2, Absolute Neuts (auto) 9.3 H, Absolute Lymphs (auto) 0.69 L, Nucleated RBC % 0, Sodium 145, Potassium 4.2, Chloride 99, Carbon Dioxide 37.3 H, Anion Gap 9, BUN 27 H, Creatinine 0.71, Estim Creat Clear Calc 64.48, Est GFR (MDRD) Non-Af 90, BUN/Creatinine Ratio 37.9 H, Glucose 141 H, Calcium 10.1 Microbiology: Microbiology 08/26/24 21:00 Mucosa - Nose SARS-CoV-2, Influenza & RSV (PCR) - Final 08/25/24 01:05 Mucosa - Nasopharyngeal Respiratory Panel (PCR) - Final Parainfluenza 4 08/24/24 19:38 Urine, Clean Catch Legionella Antigen - Final 08/24/24 19:38 Urine, Clean Catch Streptococcus pneumoniae Antigen (M - Final D/C Instructions Discharge Diet: Low fat / Low cholesterol Call your doctor if you observe: Fever of 101 or Higher, Shortness of breath, Dizziness, Fainting spells, Swelling in the ankles, Chest pain and Increased palpitations (irregular heartbeat) DC O2, CPAP, BIPAP Needs Home O2 Discharge instructions: No Meaningful Use Info Meaningful Use Meaningful Use Diagnoses (Choose all that apply): None applicable Ischemic Stroke Statin Dosing Therapy Reference: STATIN [...] Simvastatin 80mg Discharge Plan Admission Admit Date/Time: 08/24/24 23:03 Attending Provider: Jimbo Ibarra Primary Care Provider: Kory Ibarra Consulting Providers: Jemima Poe; John Paul Will Instructions Additional Instructions / Restrictions: Follow-up with your PCP to clarify the medications which were supposed to be taking as you have hada couple of duplications when we were doing our medication reconciliation on admission and discharge Discharge Orders/Prescriptions Prescriptions: New prednisone 10 mg tablet 10 mg PO DAILY Qty: 20 0RF Rx Instructions: 3 tablets daily for 3 days then 2 tablets daily for 3 days then 1 tablet daily for 3 days then halftablet daily for 4 days cefdinir 300 mg capsule 300 mg PO BID 3 Days Qty: 6 0RF Continued folic acid 1 mg tablet 1 mg PO DAILY furosemide 40 MG tablet 40 mg PO BID Patient Comments: Water pill sertraline 50 mg tablet 50 mg PO QHS Patient Comments: Anti-depressant/anxiety atorvastatin 10 MG tablet 10 mg PO [...] 100 mg PO BID PRN (Reason: constipation) diltiazem HCl 60 mg Tablet 60 mg PO Q8 Qty: 120 0RF metoprolol tartrate 25 mg Tablet 75 mg PO BID Qty: 180 0RF tiotropium bromide [Spiriva with HandiHaler] 18 mcg capsule, w/inhalation device 1 cap inhalation DAILY Qty: 30 0RF Rx Instructions: puncture 1 cap using device; one dose = 2 inhalations albuterol sulfate 90 mcg/actuation HFA aerosol inhaler 1 inh inhalation Q6H Qty: 6.7 0RF ipratropium-albuterol 0.5 mg-3 mg(2.5 mg base)/3 mL solution for nebulization 3 ml inhalation lisinopril 20 mg tablet 20 mg PO DAILY ondansetron HCl 4 mg tablet 4 mg PO Q12H PRN PRN (Reason: nausea/vomiting) potassium chloride 20 mEq tablet,ER particles/crystals 20 meq PO DAILY calcitonin (salmon) 200 unit/actuation spray,non-aerosol 1 spray DAILY risedronate 35 mg tablet PO potassium chloride 10 mEq tablet,ER particles/crystals 10 meq PO BID ferrous sulfate 324 mg (65 mg iron) tablet,delayed release (DR/EC) 324 mg PO BID Dulera 100-5 mcg/actuation HFA aerosol inhaler inhalation Spiriva Respimat 2.5 mcg/actuation mist 2 puff INHALATION DAILY Discontinued lisinopril 10 MG tablet 20 mg PO DAILY Patient Comments: BLOOD PRESSURE/HEART azithromycin 250 mg tablet PO metoprolol tartrate 100 mg tablet 200 mg PO Referrals / Follow Up: Kory Ibarra DO [Primary Care Provider] - 09/13/24 10:00 am Disposition Disposition (needs filled in before D/C Order can be placed): Home, Self Care Charges/Coding Visit Charges Inpatient E&M: 30456 Disch Hosp >30min 08/28/24 1253 Cosigner Signature (if applicable): CC: Dr. Kory Ibarra DO; Dr. Jimbo Ibarra MD~ Signed [facility]06-16-2025 [facility] Medical Records Department [address] [place] [address] Discharge Summary 08/28/24 1241 MR#: [id number] Acct: [id number] Name: ALTA BAKER Rep #: [id number] : 1950 74 From: Jimbo Ibarra MD PCP: Dr. Kory Ibarra DO Status:ADM IN Location: [place] [address] Providers Date of Admission: 08/24/24 Primary Care Physician: Dr. Kory Ibarra DO Reason For Visit: ACUTE HYPOXIC RESPIRATORY FAILURE 2/2 RLL PNA Diagnosis Discharge Diagnosis (1) Acute on chronic heart failure with reduced ejection fraction (HFrEF, <= 40%): Status: Chronic Code(s): I50.23 - Acute on chronic systolic (congestive) heart failure Medications at Discharge Home Medications furosemide 40 mg tablet 40 mg PO BID diuretic 10/27/13 atorvastatin 10 mg tablet 10 mg PO [...] 25 mg) PO BID #180 tabs 06/05/24 tiotropium bromide 18 mcg capsule with inhalation device (Spiriva with HandiHaler) 1 cap inhalation DAILY #30 inhalations 06/05/24 calcitonin (salmon) 200 unit/actuation nasal spray 1 spray DAILY 08/24/24 ferrous sulfate 324 mg (65 mg iron) tablet,delayed release 324 mg PO BID 08/24/24 ipratropium 0.5 mg-albuterol 3 mg (2.5 mg base)/3 mL nebulization soln 3 ml inhalation 08/24/24 lisinopril 20 mg tablet 20 mg PO DAILY 08/24/24 mometasone-formoterol HFA 100 mcg-5 mcg/actuation aerosol inhaler (Dulera) inhalation 08/24/24 ondansetron HCl 4 mg tablet 4 mg PO Q12H PRN PRN nausea/vomiting 08/24/24 potassium chloride 10 mEq tablet,extended release(part/cryst) 10 meq PO BID 08/24/24 potassium chloride 20 mEq tablet,extended release(part/cryst) 20 meq PO DAILY 08/24/24 risedronate 35 mg tablet mg PO 08/24/24 tiotropium bromide 2.5 mcg/actuation mist for inhalation (Spiriva Respimat) 2 puff inhalation DAILY 08/24/24 cefdinir 300 mg capsule 300 mg PO BID 3 days #6 caps 08/28/24 prednisone 10 mg tablet 10 mg PO DAILY #20 tabs 08/28/24 Hospital Course Operations None Procedures None Summary of Care Provided Minutes Spent on Discharge: 31 Hospital Course: Per HPI: FABRICIO CARDOZO, is a 85 M who presented to [facility] ED on 08/22/24 with worsening shortness of breath with exertion. Patient has history of COPD, follows with Mary Escobedo. Is on home nocturnal oxygen through CPAP but has never been on oxygen during the day. He and his take care of their grandson frequently. They note that he was sick about 2 weeks ago without respiratory symptoms and then both he and his developed the same symptoms about 4 to 5 days later. They were both placed on doxycycline and he was started on a steroid. His improved well but he did not seem to improve much. He has a nebulizer machine at home and was taking albuterol 3 times daily for the past several days but states he has continued to have significant shortness of breath with exertion. Initially had a cough with greenish sputum production but the mucus has loosened and he now is producing primarily clearish sputum. He denies any fevers or chills throughout that time. On arrival to the ED today he was satting in the low 90s on room air at rest. He was hypertensive to the 190s to 200s systolic. Otherwise was afebrile and in normal sinus rhythm. Labs notable for WBC count 24,000, though notably he was recently on steroids. Troponin trend 129 > 111. COVID/flu/RSV negative. Chest x-ray showed prominent chronic lung changes with moderate hyperinflation but no evidence of pulmonary edema or other findings concerning for pneumonia. D- dimer was negative. He was given a DuoNeb treatment and started on IV steroids and antibiotics, and hospitalist was contacted for admission. I saw the patient at bedside in the ED, was present. Patient was sitting up comfortably at the edge of the bed and had no increased work of breathing on 2 L nasal cannula at rest. He did report little improvement in his shortness of breath with exertion especially with treatments recently and this has been frustrating for him. He otherwise denies any other acute concerns at this time. Hospital Course: 1. Acute hypoxic respiratory sufficiency secondary t (more content not included)...[facility]06-16-2025 Discharge summary Author Jimbo Ibarra [facility] Note Date/Time August 28, 2024 10:1 4am [facility] Medical Records Department [address] [place] [address] Instructions for Home/Discharge Instructions 08/28/24 1002 MR#: [id number] Acct: [id number] Name: ALTA BAKER Rep #:[id number] : 1950 74 From: Jimbo beach MD PCP: Dr. Kory Ibarra, DO Status:AD M IN Discharge Instructions Diet Discharge Diet: Low fat / Low cholesterol DC O2, CPAP, BIPAP needs Home O2 Discharge instructions: No Dressing / Incision Discharge Activity: Return to Normal Activity Dressing / Incision Call your doctor if you observe: Fever of 101 or Higher, Shortness of breath, Dizziness, Fainting spells, Swelling in the ankles, Chest pain and Increased palpitations (irregular heartbeat) Follow Up Care Test Results: Test results from this visit will be discussed in further detail at your follow- up appointment, if applicable. Discharge Plan Admission Admit Date/Time: 08/24/24 23:03 Attending Provider: Jimbo Ibarra Primary Care Provider: Kory Ibarra Consulting Providers: Jemima Poe; John Paul Will Instructions Additional Instructions / Restrictions: Follow-up with your PCP to clarify the medications which were supposed to be taking as you have had a couple of duplications when we were doing our medication reconciliation on admission and discharge Discharge Orders/Prescriptions Prescriptions: New prednisone 10 mg tablet 10 mg PO DAILY Qty: 20 0RF Rx Instructions: 3 tablets daily for 3 days then 2 tablets daily for 3 days then 1 tablet daily for 3 days then half tablet daily for 4 days cefdinir 300 mg capsule 300 mg PO BID 3 Days Qty: 6 0RF Continued folic acid 1 mg tablet 1 mg PO DAILY furosemide 40 MG tablet 40 mg PO BID Patient Comments: Water pill sertraline 50 mg tablet 50 mg PO QHS Patient Comments: Anti-depressant/anxiety atorvastatin 10 MG tablet 10 mg PO [...] 100 mg PO BID PRN (Reason: constipation) diltiazem HCl 60 mg Tablet 60 mg PO Q8 Qty: 120 0RF metoprolol tartrate 25 mg Tablet 75 mg PO BID Qty: 180 0RF tiotropium bromide [Spiriva with HandiHaler] 18 mcg capsule, w/inhalation device 1 cap inhalation DAILY Qty: 30 0RF Rx Instructions: puncture 1 cap using device; one dose = 2 inhalations albuterol sulfate 90 mcg/actuation HFA aerosol inhaler 1 inh inhalation Q6H Qty: 6.7 0RF ipratropium-albuterol 0.5 mg-3 mg(2.5 mg base)/3 mL solution for nebulization 3 ml inhalation lisinopril 20 mg tablet 20 mg PO DAILY ondansetron HCl 4 mg tablet 4 mg PO Q12H PRN PRN (Reason: nausea/vomiting) potassium chloride 20 mEq tablet,ER particles/crystals 20 meq PO DAILY calcitonin (salmon) 200 unit/actuation spray,non-aerosol 1 spray DAILY risedronate 35 mg tablet PO potassium chloride 10 mEq tablet,ER particles/crystals 10 meq PO BID ferrous sulfate 324 mg (65 mg iron) tablet,delayed release (DR/EC) 324 mg PO BID Dulera 100-5 mcg/actuation HFA aerosol inhaler inhalation Spiriva Respimat 2.5 mcg/actuation mist 2 puff INHALATION DAILY Discontinued lisinopril 10 MG tablet 20 mg PO DAILY Patient Comments: BLOOD PRESSURE/HEART azithromycin 250 mg tablet PO metoprolol tartrate 100 mg tablet 200 mg PO Referrals / Follow Up: Kory Ibarra DO [Primary Care Provider] - Within 1 Week Disposition Disposition (needs filled in before D/C Order can be placed): Home, Self Care 08/28/24 1014<Electronically signed by Jimbo Ibarra MD>Jimbo Ibarra MD CC: Dr. John Paul Will DO; Dr. Kory Ibarra DO; Dr. Jemima Poe DO ~ Signed [facility] Work Phone: [phone]) 319-713606-16-2025 Telephone encounter Note* Telephone Encounter - Laura Segundo MA - 08/28/2024 10:56 AM EDT Called and spoke with Rukhsana. She is going to fax over patients hospital records for Dr. Fred dodson. Please document once fax is received and placed with Dr. [facility]bar[id number] Miscellaneous Notes* Telephone Encounter - Laura Segundo MA - 08/28/2024 10:56 AM EDT Called and spoke with Rukhsana. She is going to fax over patients hospital records for Dr. Fred dodson. Please document once fax is received and placed with Dr. Ibarra * Telephone Encounter - Jaguar Wang - 08/28/2024 10:36 AM EDT Name of caller: Rukhsana Contact phone number: [phone] Relationship to Patient: [facility] Provider: Dr. Ibarra Practice: [facility] Chief Complaint/Reason for Call: Rukhsana from [facility] calling in to schedule a Hospital Follow Up for patient. Patient is scheduled for 09/13/[address] Ibarra. However, hospital would like patient seen within the next week. Please advise Best time of day caller can be reached: Any Patient advised that office/PCP has 24-48 business hours to return their call: N/A documented in this encounterSParkview [id number] Telephone encounter Note* Telephone Encounter - Jaguar Wang - 08/28/2024 10:36 AM EDT Name of caller: Rukhsana Contact phone number: [phone] Relationship to Patient: [facility] Provider: Dr. Ibarra Practice: [facility] Chief Complaint/Reason for Call: Rukhsana from [facility] calling in to schedule a Hospital Follow Up for patient. Patient is scheduled for 09/13/[address] Ibarra. However, hospital would like patient seen within the next week. Please advise Best time of day caller can be reached: Any Patient advised that office/PCP has 24-48 business hours to return their call: N/A [id number] Discharge summary [facility] Medical Records Department [address] [place] [address] Instructions for Home/Discharge Instructions 08/28/24 1002 MR#: [id number] Acct: [id number] Name: ALTA BAKER Rep #:[id number] : 1950 74 From: Jimbo beach MD PCP: Dr. Kory Ibarra, DO Status:AD M IN Discharge Instructions Diet Discharge Diet: Low fat / Low cholesterol DC O2, CPAP, BIPAP needs Home O2 Discharge instructions: No Dressing / Incision Discharge Activity: Return to Normal Activity Dressing / Incision Call your doctor if you observe: Fever of 101 or Higher, Shortness of breath, Dizziness, Fainting spells, Swelling in the ankles, Chest pain and Increased palpitations (irregular heartbeat) Follow Up Care Test Results: Test results from this visit will be discussed in further detail at your follow- up appointment, if applicable. Discharge Plan Admission Admit Date/Time: 08/24/24 23:03 Attending Provider: Jimbo Ibarra Primary Care Provider: Kory Ibarra Consulting Providers: Jemima Poe; John Paul Will Instructions Additional Instructions / Restrictions: Follow-up with your PCP to clarify the medications which were supposed to be taking as you have hada couple of duplications when we were doing our medication reconciliation on admission and discharge Discharge Orders/Prescriptions Prescriptions: New prednisone 10 mg tablet 10 mg PO DAILY Qty: 20 0RF Rx Instructions: 3 tablets daily for 3 days then 2 tablets daily for 3 days then 1 tablet daily for 3 days then halftablet daily for 4 days cefdinir 300 mg capsule 300 mg PO BID 3 Days Qty: 6 0RF Continued folic acid 1 mg tablet 1 mg PO DAILY furosemide 40 MG tablet 40 mg PO BID Patient Comments: Water pill sertraline 50 mg tablet 50 mg PO QHS Patient Comments: Anti-depressant/anxiety atorvastatin 10 MG tablet 10 mg PO [...] 100 mg PO BID PRN (Reason: constipation) diltiazem HCl 60 mg Tablet 60 mg PO Q8 Qty: 120 0RF metoprolol tartrate 25 mg Tablet 75 mg PO BID Qty: 180 0RF tiotropium bromide [Spiriva with HandiHaler] 18 mcg capsule, w/inhalation device 1 cap inhalation DAILY Qty: 30 0RF Rx Instructions: puncture 1 cap using device; one dose = 2 inhalations albuterol sulfate 90 mcg/actuation HFA aerosol inhaler 1 inh inhalation Q6H Qty: 6.7 0RF ipratropium-albuterol 0.5 mg-3 mg(2.5 mg base)/3 mL solution for nebulization 3 ml inhalation lisinopril 20 mg tablet 20 mg PO DAILY ondansetron HCl 4 mg tablet 4 mg PO Q12H PRN PRN (Reason: nausea/vomiting) potassium chloride 20 mEq tablet,ER particles/crystals 20 meq PO DAILY calcitonin (salmon) 200 unit/actuation spray,non-aerosol 1 spray DAILY risedronate 35 mg tablet PO potassium chloride 10 mEq tablet,ER particles/crystals 10 meq PO BID ferrous sulfate 324 mg (65 mg iron) tablet,delayed release (DR/EC) 324 mg PO BID Dulera 100-5 mcg/actuation HFA aerosol inhaler inhalation Spiriva Respimat 2.5 mcg/actuation mist 2 puff INHALATION DAILY Discontinued lisinopril 10 MG tablet 20 mg PO DAILY Patient Comments: BLOOD PRESSURE/HEART azithromycin 250 mg tablet PO metoprolol tartrate 100 mg tablet 200 mg PO Referrals / Follow Up: Kory Ibarra DO [Primary Care Provider] - Within 1 Week Disposition Disposition (needs filled in before D/C Order can be placed): Home, Self Care 08/28/24 1014Jimbo Ibarra MD CC: Dr. John Paul Will DO; Dr. Kory Ibarra DO; Dr. Jemima Poe DO ~ Signed [facility]06-15-2025 Progress note Author Jimbo Ibarra [facility] Note Date/Time August 27, 2024 3:09 pm [facility] Medical Records Department [address] [place] [address] Progress Note - Hospitalist 08/27/24 5066 MR#: [id number] Acct: [id number] Name: ALTA BAKER Rep #:[id number] : 1950 74 From: Jimbo beach MD PCP: Dr. Kory Ibarra, DO Status:AD M IN Location: [place] [address] Subjective Subjective Doing well, did not get any sleep overnight because of the significant coughing. Objective Data Objective Data Vital Signs: Vital Signs Temp Pulse Resp BP Pulse Ox O2 Del Method O2 Flow Rate 97.6 F L 94 22 H 133/53 H 97 Nasal Cannula 2 08/27/24 13:54 08/27/24 14:23 08/27/24 14:23 08/27/24 13:54 08/27/24 13:54 08/27/24 13:54 08/27/24 13:54 FiO2 25 08/26/24 05:50 Oxygen Flow Rate (L/min) 2 Oxygen Delivery Method Nasal Cannula Weight: 212 lb 15.465 oz Body Mass Index (BMI) 43.0 Intake & Output: Intake and Output for Last 24 Hours 08/26/24 08/27/24 08/28/24 03:59 03:59 03:59 Intake Total 945 / 945 1025 / 1025 240 / 240 Output Total 1425 / 1425 2049 / 2049 1300 / 1300 Balance -480 / -480 -1025 / -1025 -1060 / -1060 Lab / Micro Data 08/27/24 05:53 08/27/24 05:53 Labs: Laboratory Results - last 24 hr 08/26/24 04:34: Magnesium 2.2 08/27/24 05:53: WBC 11.7 H, RBC 3.06 L, Hgb 8.6 L, Hct 28.1 L, MCV 91.8, MCH 28.1, MCHC 30.6 L, RDW Std Deviation 48.3 H, RDW Coeff of Giles 14.6, Plt Count 90L, MPV 13.0 H, Immature Gran % (Auto) 2.100 H, Neut % (Auto) 78.5 H, Lymph % (Auto) 5.7 L, [place] % (Auto) 13.6 H, Eos % (Auto) 0.0, Baso % (Auto) 0.1, Absolute Neuts (auto) 9.2 H, Absolute Lymphs (auto) 0.67 L, Nucleated RBC % 0, Differential Comment SCANNED, Sodium 142, Potassium 4.5, Chloride 100, Carbon Dioxide 31.8, Anion Gap 10, BUN 29 H, Creatinine 0.72, Estim Creat Clear Calc 65.20, Est GFR (MDRD) Non-Af 88, BUN/Creatinine Ratio 39.8 H, Glucose 142 H, Calcium 10.1 Micro: Microbiology 08/26/24 21:00 Mucosa - Nose SARS-CoV-2, Influenza & RSV (PCR) - Final 08/25/24 01:05 Mucosa - Nasopharyngeal Respiratory Panel (PCR) - Final Parainfluenza 4 08/24/24 19:38 Urine, Clean Catch Legionella Antigen - Final 08/24/24 19:38 Urine, Clean Catch Streptococcus pneumoniae Antigen (M - Final Physical Exam Narrative General: Alert, Oriented x3, Cooperative, No apparent distress HEENT: Atraumatic, PERRLA, EOMI, Normocephalic Oral: Moist Mucosa Neck: Supple, No JVD Lungs: Diminished, Normal air movement, scattered rhonchi, No wheeze, No rales Cardiovascular: Regular rate, Regular Rhythm, Normal S1, Normal S2, No murmurs Abdomen: Soft, Non Tender, Non-Distended, No Hepato-splenomegaly Extremities: Edema, Capillary Refill Less than 3 Seconds Skin: No rashes, No breakdown Musculoskeletal: No Tenderness to Palpation of Joints or Extremities Neurological: No focal neurological deficits, Motor Exam 5/5 strength throughout, Sensory exam intact to light touch and pain Psych/Mental Status: Normal Affect, Appropriate Assessment & Plan Assessment/Plan (1) Acute on chronic heart failure with reduced ejection fraction (HFrEF, <= 40%): PLAN: Plan 1. Acute hypoxic respiratory insufficiency secondary to acute on chronic systolic CHF complicated by chronic A-fib with RVR in the setting of a parainfluenza infection/essential HTN/HLD ? She is on empiric antibiotics however she does have a viral illness so these can be discontinued in the next 48 hours if she continues to improve, depending on culture data ? Continue with Lasix, her BNP was elevated to 5153 ? She had an echo with an EF of 40% and mild consistent with LVH with a PASP of 52 mmHg ? Will continue with her home blood pressure medications as well as her anticoagulation on Eliquis for both her history of PE and her A-fib ? Continue with Lipitor ? Will continue with steroids for her viral infection, continue symptomatic management 2. COPD ? Not in exacerbation ? Continue with her home inhalers 3. CHRISTIANNE ? Stable ? Continue with CPAP 4. Anxiety/depression ? Stable ? Continue with Zoloft 5. Iron deficiency anemia ? Stable ? Continue with iron replacement DVT: Eliquis Charges/Coding Visit Charges Inpatient E&M: 27809 Subs Hosp L2 08/27/24 1507 <Electronically signed by Jimbo Ibarra MD> Cosigner Signature (if applicable): CC: ~ Signed [facility] Work Phone: 1(909) 726-167206-15-2025 Progress note [facility] Medical Records Department [address] [place] [id number] Progress Note - Hospitalist 08/27/24 1456 MR#: [id number] Acct: [id number] Name: ALTA BAKER Rep #:[id number] : 1950 74 From: Jimbo beach MD PCP: Dr. Kory Ibarra, DO Status:AD M IN Location: [place] [address] Subjective Subjective Doing well, did not get any sleep overnight because of the significant coughing. Objective Data Objective Data Vital Signs: Vital Signs Temp Pulse Resp BP Pulse Ox O2 Del Method O2 Flow Rate 97.6 F L 94 22 H 133/53 H 97 Nasal Cannula 2 08/27/24 13:54 08/27/24 14:23 08/27/24 14:23 08/27/24 13:54 08/27/24 13:54 08/27/24 13:54 08/27/24 13:54 FiO2 25 08/26/24 05:50 Oxygen Flow Rate (L/min) 2 Oxygen Delivery Method Nasal Cannula Weight: 212 lb 15.465 oz Body Mass Index (BMI) 43.0 Intake & Output: Intake and Output for Last 24 Hours 08/26/24 08/27/2408/28/25 03:59 03:59 03:59 Intake Total 945 / 945 1025 / 1025 240 / 240 Output Total 1425 / 1425 2049 / 2049 1300 / 1300 Balance -480 / -480 -1025 / -1025 -1060 / -1060 Lab / Micro Data 08/27/24 05:53 08/27/24 05:53 Labs: Laboratory Results - last 24 hr 08/26/24 04:34: Magnesium 2.2 08/27/24 05:53: WBC 11.7 H, RBC 3.06 L, Hgb 8.6 L, Hct 28.1 L, MCV 91.8, MCH 28.1, MCHC 30.6 L, RDWStd Deviation 48.3 H, RDW Coeff of Giles 14.6, Plt Count 90L, MPV 13.0 H, Immature Gran % (Auto) 2.100 H, Neut % (Auto) 78.5 H, Lymph % (Auto) 5.7 L, [place] % (Auto) 13.6 H, Eos % (Auto) 0.0, Baso % (Auto) 0.1, Absolute Neuts (auto) 9.2 H, Absolute Lymphs (auto) 0.67 L, Nucleated RBC % 0, Differential Comment SCANNED, Sodium 142, Potassium 4.5, Chloride 100, Carbon Dioxide 31.8, Anion Gap 10, BUN 29 H, Creatinine 0.72, Estim Creat Clear Calc 65.20, Est GFR (MDRD) Non-Af 88, BUN/Creatinine Ratio 39.8 H, Glucose 142 H, Calcium 10.1 Micro: Microbiology 08/26/24 21:00 Mucosa - Nose SARS-CoV-2, Influenza & RSV (PCR) - Final 08/25/24 01:05 Mucosa - Nasopharyngeal Respiratory Panel (PCR) - Final Parainfluenza 4 08/24/24 19:38 Urine, Clean Catch Legionella Antigen - Final 08/24/24 19:38 Urine, Clean Catch Streptococcus pneumoniae Antigen (M - Final Physical Exam Narrative General: Alert, Oriented x3, Cooperative, No apparent distress HEENT: Atraumatic, PERRLA, EOMI, Normocephalic Oral: Moist Mucosa Neck: Supple, No JVD Lungs: Diminished, Normal air movement, scattered rhonchi, No wheeze, No rales Cardiovascular: Regular rate, Regular Rhythm, Normal S1, Normal S2, No murmurs Abdomen: Soft, Non Tender, Non-Distended, No Hepato-splenomegaly Extremities: Edema, Capillary Refill Less than 3 Seconds Skin: No rashes, No breakdown Musculoskeletal: No Tenderness to Palpation of Joints or Extremities Neurological: No focal neurological deficits, Motor Exam 5/5 strength throughout, Sensory exam intact to light touch and pain Psych/Mental Status: Normal Affect, Appropriate Assessment & Plan Assessment/Plan (1) Acute on chronic heart failure with reduced ejection fraction (HFrEF, <= 40%): PLAN: Plan 1. Acute hypoxic respiratory insufficiency secondary to acute on chronic systolic CHF complicated by chronic A-fib with RVR in the setting of a parainfluenza infection/essential HTN/HLD ? She is on empiric antibiotics however she does have a viral illness so these can be discontinued in the next 48 hours if she continues to improve, depending on culture data ? Continue with Lasix, her BNP was elevated to 5153 ? She had an echo with an EF of 40% and mild consistent with LVH with a PASP of 52 mmHg ? Will continue with her home blood pressure medications as well as her anticoagulation on Eliquis for both her history of PE and her A-fib ? Continue with Lipitor ? Will continue with steroids for her viral infection, continue symptomatic management 2. COPD ? Not in exacerbation ? Continue with her home inhalers 3. CHRISTIANNE ? Stable ? Continue with CPAP 4. Anxiety/depression ? Stable ? Continue with Zoloft 5. Iron deficiency anemia ? Stable ? Continue with iron replacement DVT: Eliquis Charges/Coding Visit Charges Inpatient E&M: 37492 Subs Hosp L2 08/27/24 1509 Cosigner Signature (if applicable): CC: ~ Signed [facility]06-14-2025 Progress note Author Jimbo Ibarra [facility] Note Date/Time August 26, 2024 12:1 3pm [facility] Medical Records Department [address] [place] [address] Progress Note - Hospitalist 08/26/24 1157 MR#: [id number] Acct: [id number] Name: ALTA BAKER Rep #:[id number] : 1950 74 From: Jimbo beach MD PCP: Dr. Kory Ibarra, DO Status:AD M [facility] Subjective Subjective feels like she is breathing a little bit better. She says that she does not normally wear oxygen at home for the last 6 months though she did wear 2 L chronically for 5 or 6 years prior Objective Data Objective Data Vital Signs: Vital Signs Temp Pulse Resp BP Pulse Ox O2 Del Method O2 Flow Rate 97.9 F 120 H 18 140/84 H 99 Nasal Cannula 2 08/26/24 08:27 08/26/24 08:34 08/26/24 08:27 08/26/24 08:27 08/26/24 08:27 08/26/24 08:27 08/26/24 08:27 FiO2 25 08/26/24 05:50 Oxygen Flow Rate (L/min) 2 Oxygen Delivery Method Nasal Cannula Weight: 213 lb 6.519 oz Body Mass Index (BMI) 43.1 Intake & Output: Intake and Output for Last 24 Hours 08/25/24 08/26/24 08/27/24 03:59 03:59 03:59 Intake Total 350.91 / 350.91 945 / 945 Output Total 1425 / 1425 300 / 300 Balance 350.91 / 350.91 -480 / -480 -300 / -300 Lab / Micro Data 08/26/24 04:34 08/26/24 04:34 Labs: Laboratory Results - last 24 hr 08/25/24 04:08: Vitamin D 25-Hydroxy 35.9 08/26/24 04:34: WBC 10.9, RBC 3.08 L, Hgb 8.7 L, Hct 28.5 L, MCV 92.5, MCH 28.2,MCHC 30.5 L, RDW Std Deviation 49.5 H, RDW Coeff of Giles 14.7 H, Plt Count 88 L, MPV 12.9 H, Immature Gran % (Auto) 2.000 H, Neut % (Auto) 83.6 H, Lymph % (Auto)6.1 L, [place] % (Auto) 8.1, Eos % (Auto) 0.0, Baso % (Auto) 0.2, Absolute Neuts (auto) 9.1 H, Absolute Lymphs (auto) 0.66 L, Nucleated RBC % 0, Sodium 142, Potassium 4.9, Chloride 101, Carbon Dioxide 31.6, Anion Gap 9, BUN 31 H, Creatinine 0.84, Estim Creat Clear Calc 62.17, Est GFR (MDRD) Non-Af 73, BUN/Creatinine Ratio 36.3 H, Glucose 139 H, Calcium 10.2 Micro: Microbiology 08/25/24 01:05 Mucosa - Nasopharyngeal Respiratory Panel (PCR) - Final Parainfluenza 4 08/24/24 19:38 Urine, Clean Catch Legionella Antigen - Final 08/24/24 19:38 Urine, Clean Catch Streptococcus pneumoniae Antigen (M - Final Physical Exam Narrative General: Alert, Oriented x3, Cooperative, No apparent distress HEENT: Atraumatic, PERRLA, EOMI, Normocephalic Oral: Moist Mucosa Neck: Supple, No JVD Lungs: Tachycardic, Normal air movement, scattered rhonchi, No wheeze, No rales Cardiovascular: Regular rate, Regular Rhythm, Normal S1, Normal S2, No murmurs Abdomen: Soft, Non Tender, Non-Distended, No Hepato-splenomegaly Extremities: Edema, Capillary Refill Less than 3 Seconds Skin: No rashes, No breakdown Musculoskeletal: No Tenderness to Palpation of Joints or Extremities Neurological: No focal neurological deficits, Motor Exam 5/5 strength throughout, Sensory exam intact to light touch and pain Psych/Mental Status: Normal Affect, Appropriate Assessment & Plan Assessment/Plan (1) Acute on chronic heart failure with reduced ejection fraction (HFrEF, <= 40%): PLAN: Plan 1. Acute hypoxic respiratory insufficiency secondary to acute on chronic systolic CHF complicated by chronic A-fib with RVR in the setting of a parainfluenza infection/essential HTN/HLD ? She is on empiric antibiotics however she does have a viral illness so these can be discontinued in the next 48 hours if she continues to improve, depending on culture data ? Continue with Lasix, her BNP was elevated to 5153 ? She had an echo with an EF of 40% and mild consistent with LVH with a PASP of 52 mmHg ? Will continue with her home blood pressure medications as well as her anticoagulation on Eliquis for both her history of PE and her A-fib ? Continue with Lipitor ? Will continue with steroids for her viral infection, continue symptomatic management 2. COPD ? Not in exacerbation ? Continue with her home inhalers 3. CHRISTIANNE ? Stable ? Continue with CPAP DVT: Eliquis Charges/Coding Visit Charges Inpatient E&M: 70014 Subs Hosp L2 08/26/24 1213 <Electronically signed by Jimbo Ibarra MD> Cosigner Signature (if applicable): CC: ~ Signed [facility] Work Phone: [phone]) [phone] Progress note [facility] Medical Records Department [address] [place] [address] Progress Note - Hospitalist 08/26/24 1157 MR#: [id number] Acct: [id number] Name: ALTA BAKER Rep #:[id number] : 1950 74 From: Jimbo beach MD PCP: Dr. Kory Ibarra, DO Status:AD M IN Location: [place] [address] Subjective Subjective feels like she is breathing a little bit better. She says that she does not normally wear oxygen athome for the last 6 months though she did wear 2 L chronically for 5 or 6 years prior Objective Data Objective Data Vital Signs: Vital Signs Temp Pulse Resp BP Pulse Ox O2 Del Method O2 Flow Rate 97.9 F 120 H 18 140/84 H 99 Nasal Cannula 2 08/26/24 08:27 08/26/24 08:34 08/26/24 08:27 08/26/24 08:27 08/26/24 08:27 08/26/24 08:27 08/26/24 08:27 FiO2 25 08/26/24 05:50 Oxygen Flow Rate (L/min) 2 Oxygen Delivery Method Nasal Cannula Weight: 213 lb 6.519 oz Body Mass Index (BMI) 43.1 Intake & Output: Intake and Output for Last 24 Hours 08/25/24 08/26/24 08/27/24 03:59 03:59 03:59 Intake Total 350.91 / 350.91 945 / 945 Output Total 1425 / 1425 300 / 300 Balance 350.91 / 350.91 -480 / -480 -300 / -300 Lab / Micro Data 08/26/24 04:34 08/26/24 04:34 Labs: Laboratory Results - last 24 hr 08/25/24 04:08: Vitamin D 25-Hydroxy 35.9 08/26/24 04:34: WBC 10.9, RBC 3.08 L, Hgb 8.7 L, Hct 28.5 L, MCV 92.5, MCH 28.2,MCHC 30.5 L, RDW Std Deviation 49.5 H, RDW Coeff of Giles 14.7 H, Plt Count 88 L, MPV 12.9 H, Immature Gran % (Auto) 2.000 H, Neut % (Auto) 83.6 H, Lymph % (Auto)6.1 L, [place] % (Auto) 8.1, Eos % (Auto) 0.0, Baso % (Auto) 0.2, Absolute Neuts (auto) 9.1 H, Absolute Lymphs (auto) 0.66 L, Nucleated RBC % 0, Sodium 142, Potassium 4.9, Chloride 101, Carbon Dioxide 31.6, Anion Gap 9, BUN 31 H, Creatinine 0.84, Estim Creat Clear Calc 62.17, Est GFR (MDRD) Non-Af 73, BUN/Creatinine Ratio 36.3 H, Glucose 139 H, Calcium 10.2 Micro: Microbiology 08/25/24 01:05 Mucosa - Nasopharyngeal Respiratory Panel (PCR) - Final Parainfluenza 4 08/24/24 19:38 Urine, Clean Catch Legionella Antigen - Final 08/24/24 19:38 Urine, Clean Catch Streptococcus pneumoniae Antigen (M - Final Physical Exam Narrative General: Alert, Oriented x3, Cooperative, No apparent distress HEENT: Atraumatic, PERRLA, EOMI, Normocephalic Oral: Moist Mucosa Neck: Supple, No JVD Lungs: Tachycardic, Normal air movement, scattered rhonchi, No wheeze, No rales Cardiovascular: Regular rate, Regular Rhythm, Normal S1, Normal S2, No murmurs Abdomen: Soft, Non Tender, Non-Distended, No Hepato-splenomegaly Extremities: Edema, Capillary Refill Less than 3 Seconds Skin: No rashes, No breakdown Musculoskeletal: No Tenderness to Palpation of Joints or Extremities Neurological: No focal neurological deficits, Motor Exam 5/5 strength throughout, Sensory exam intact to light touch and pain Psych/Mental Status: Normal Affect, Appropriate Assessment & Plan Assessment/Plan (1) Acute on chronic heart failure with reduced ejection fraction (HFrEF, <= 40%): PLAN: Plan 1. Acute hypoxic respiratory insufficiency secondary to acute on chronic systolic CHF complicated by chronic A-fib with RVR in the setting of a parainfluenza infection/essential HTN/HLD ? She is on empiric antibiotics however she does have a viral illness so these can be discontinued in the next 48 hours if she continues to improve, depending on culture data ? Continue with Lasix, her BNP was elevated to 5153 ? She had an echo with an EF of 40% and mild consistent with LVH with a PASP of 52 mmHg ? Will continue with her home blood pressure medications as well as her anticoagulation on Eliquis for both her history of PE and her A-fib ? Continue with Lipitor ? Will continue with steroids for her viral infection, continue symptomatic management 2. COPD ? Not in exacerbation ? Continue with her home inhalers 3. CHRISTIANNE ? Stable ? Continue with CPAP DVT: Eliquis Charges/Coding Visit Charges Inpatient E&M: 57687 Subs Hosp L2 08/26/24 1213 Cosigner Signature (if applicable): CC: ~ Signed [facility]06-13-2025 Progress note Author John Paul Will [facility] Note Date/Time August 25, 2024 2:10 pm [facility] Medical Records Department [address] [place] [address] Progress Note - Hospitalist 08/25/24 0730 MR#: [id number] Acct: [id number] Name: ALTA BAKER Rep #:[id number] : 1950 74 From: John Paul Will DO PCP: Dr. Kory Ibarra DO Status:[facility] IN Location: [place] [address] Reason for Visit Reason for Visit: Diagnoses Elevated white blood cell count, unspecified (08/24/24) Unspecified atrial fibrillation (08/24/24) Acute on chronic systolic (congestive) heart failure (08/24/24) Hypoxemia (08/24/24) Abnormal findings on diagnostic imaging of other specified body structures (08/24/24) Subjective Subjective Feeling better. Had been ill for several days prior to arrival. Denies LE edema,weight gain. Objective Data Objective Data Vital Signs: Vital Signs Temp Pulse Resp BP Pulse Ox O2 Del Method O2 Flow Rate 36.7 C 100 18 120/63 94 Nasal Cannula 2 08/25/24 06:00 08/25/24 07:05 08/25/24 07:05 08/25/24 06:00 08/25/24 07:05 08/25/24 07:05 08/25/24 07:05 FiO2 30 08/25/24 05:49 Oxygen Flow Rate (L/min) 2 Oxygen Delivery Method Nasal Cannula Weight: 96.8 kg Body Mass Index (BMI) 43.1 Intake & Output: Intake and Output for Last 24 Hours 08/23/24 08/24/24 08/25/24 23:59 23:59 23:59 Intake Total 53.75 / 53.75 537.16 / 537.16 Output Total 400 / 400 Balance 53.75 / 53.75 137.16 / 137.16 Lab / Micro Data 08/25/24 04:08 08/25/24 04:08 Labs: Laboratory Results - last 24 hr 08/24/24 18:40: WBC 16.4 H, RBC 3.34 L, Hgb 9.3 L, Hct 31.0 L, MCV 92.8, MCH 27.8, MCHC 30.0 L, RDW Std Deviation 51.2 H, RDW Coeff of Giles 14.9 H, Plt Count 96 L, MPV 12.9 H, Immature Gran % (Auto) 0.900, Neut % (Auto) 61.8, Lymph % (Auto) 9.7 L, [place] % (Auto) 27.2 H, Eos % (Auto) 0.2, Baso % (Auto) 0.2, Absolute Neuts (auto) 10.1 H, Absolute Lymphs (auto) 1.59, Nucleated RBC % 0, Differential Comment SCANNED, Platelet Estimate MOD DEC, Sodium 143, Potassium 4.7, Chloride 102, Carbon Dioxide 31.5, Anion Gap 10, BUN 19, Creatinine 0.72, Estim Creat Clear Calc 65.67, Est GFR (MDRD) Non-Af 89, BUN/Creatinine Ratio 26.2 H, Glucose 89, Calcium 9.9, Troponin T High Sens 21 H D, NT pro BNP II 5153H 08/24/24 19:38: Urine Color Yellow, Urine Clarity Clear, Urine pH 5.0, Ur Specific Benedict 1.020, Urine Protein 30 H, Urine Glucose (UA) Normal, Urine Ketones Negative, Urine Occult Blood 50 H, Urine Nitrite Negative, Urine Bilirubin Negative, Urine Urobilinogen Normal, Ur Leukocyte Esterase 100 H, Urine RBC 0-5 SEEN, Urine WBC 0-5 SEEN, Ur Squamous Epith Cells 25-50 SEEN, Ur Transition Epith Cell 0-5 SEEN, Uric Acid Crystals 1+, Urine Bacteria 2+, Urine Mucus 0 SEEN 08/24/24 20:40: Troponin T Hi Sens 2 Hr 18 H 08/24/24 23:50: Lactic Acid 1.0, Troponin T Hi Sens 4Hr 15 H 08/25/24 04:08: WBC 12.4 H, RBC 3.37 L, Hgb 9.5 L, Hct 31.3 L, MCV 92.9, MCH 28.2, MCHC 30.4 L, RDW Std Deviation 50.0 H, RDW Coeff of Giles 14.8 H, Plt Count 88 L, MPV 13.2 H, Immature Gran % (Auto) 1.300 H, Neut % (Auto) 89.1 H, Lymph % (Auto) 6.0 L, [place] % (Auto) 3.5, Eos % (Auto) 0.0, Baso % (Auto) 0.1, Absolute Neuts (auto) 11.1 H, Absolute Lymphs (auto) 0.75 L, Nucleated RBC % 0, Sodium 143, Potassium 4.9, Chloride 102, Carbon Dioxide 24.8, Anion Gap 16 H, BUN 20 H,Creatinine 0.78, Estim Creat Clear Calc 65.27, Est GFR (MDRD) Non-Af 81, BUN/Creatinine Ratio 26.3 H, Glucose 160 H, Calcium 10.0, Phosphorus 4.1, Magnesium 2.2, Total Bilirubin 0.79, AST 16, ALT 11, Alkaline Phosphatase 92, Total Protein 6.7, Albumin 4.4, Globulin 2.4, Albumin/Globulin Ratio 1.9 Micro: Microbiology 08/25/24 01:05 Mucosa - Nasopharyngeal Respiratory Panel (PCR) - Final Parainfluenza 4 08/24/24 19:38 Urine, Clean Catch Legionella Antigen - Final 08/24/24 19:38 Urine, Clean Catch Streptococcus pneumoniae Antigen (M - Final Radiography Diagnostic Testing: Radiology Impression Chest X-Ray 08/24/24 19:39 IMPRESSION: Opacification of the right middle lobe, which may reflect pneumonitis/pneumonia. Stable severe cardiomegaly. Reading Location: [facility] Chest CT 08/24/24 23:01 IMPRESSION: IMPRESSION: Coronary artery calcification (CAC) is is present Moderate cardiomegaly. Mild pericardial effusion. Minimal bilateral pleural effusions. Passive atelectatic airspace disease of the lower lobes. Subsegmental atelectasis of the right middle lobe. Associated pneumonic consolidation is considered. Subsegmental atelectasis in the left lower lobe. Associated pneumonic consolidation is considered. Moderate coronary artery calcifications. Moderate interstitial pulmonary congestion. Enlarged main pulmonary artery, probably pulmonary arterial hypertension. Osteopenia. Severe subacute benign osteoporotic compression fracture of T12 vertebral body with mild associated retropulsion and increased dorsal kyphosis. Diffuse spondylosis. Hepatomegaly. Diffuse irregularity of the hepatic contour, probably chronic. Reading Location: [place] [address] Physical Exam Const alert and no apparent distress HEENT head/scalp atraumatic and moist oral mucous membranes Resp normal respiratory effort, no retractions, no use of accessory muscles and clearto auscultation bilaterally Cardio regular rate, regular rhythm, S1 normal heart sound and S2 normal heart sound GI normal to inspection, nondistended, normoactive bowel sounds, soft to palpation,non-tender and non-distended Extremity normal to inspection Assessment & Plan Assessment/Plan (1) Acute on chronic heart failure with reduced ejection fraction (HFrEF, <= 40%): PLAN: BNP 5153. Pulmonary vascular congestion and pleural effusion on CT chest. on IV furosemide, metoprolol tartrate, lisinopril Echo w EF 40% mild concentric LVH. PASP 52mmHg PLAN: Plan Chronic afib with RVR: metoprolol 100 BID. anticoagulation with apixaban Parainfluenza infection: supportive mgmt. on empiric antibiotics. Chronic conditions: * COPD: BDs * HTN: lisinopril * HLP: atorvastatin * h/o PE: apixaban * CHRISTIANNE: CPAP VTE prophylaxis: not indicated as already anticoagulated. Charges/Coding Visit Charges Inpatient E&M: 12765 Subs Hosp L2 08/25/24 1130 <Electronically signed by John Paul Will DO> Cosigner Signature (if applicable): CC: ~ Signed ADDENDUM by Dr. John Paul Will DO on 08/25/24 at 1410 Addendum Further review of the CT chest shows severe subacute to benign osteoporotic compression fracture of T12 with mild associated retropulsion and increased dorsal kyphosis. Discussed with the patient and she said she is not having any back pain but has had vertebral fractures in the past back in March. I reviewed through [facility] and found a CT of the abdomen pelvis performed on April 27 that showed superior endplate compression fracture of L4, interval subacute compression fracture of L3, and L2. Overall progression and increasingheight loss, sclerosis and mild retropulsion of T12 vertebral body. Osteopenia. Will check a 25-hydroxy vitamin D level. Clearly this fracture is not new and should not have any pains with no acute intervention at this time. The patient still having issues with shortness of breath we will continue with the current therapies in regards to antibiotics, furosemide and will add methylprednisolone as she may have an acute bronchitis due to the parainfluenza virus. Disposition: Will monitor the patient least overnight and then reassess see how she is doing tomorrow. Patient does have oxygen at night but only 3 of her CPAPat home. Eventual plan is home with home care. 08/25/24 1410<Electronically signed by John Paul Will DO> Cosigner Signature (if applicable): cc: ~* Signed [facility] Work Phone: [phone]) [phone] Progress note [facility] Medical Records Department [address] [place] [address] Progress Note - Hospitalist 08/25/24 0730 MR#: [id number] Acct: [id number] Name: ALTA BAKER Rep #:[id number] : 1950 74 From: John Paul Will DO PCP: Dr. Kory Ibarra DO Status:AD M IN Location: [place] [address] Reason for Visit Reason for Visit: Diagnoses Elevated white blood cell count, unspecified (08/24/24) Unspecified atrial fibrillation (08/24/24) Acute on chronic systolic (congestive) heart failure (08/24/24) Hypoxemia (08/24/24) Abnormal findings on diagnostic imaging of other specified body structures (08/24/24) Subjective Subjective Feeling better. Had been ill for several days prior to arrival. Denies LE edema,weight gain. Objective Data Objective Data Vital Signs: Vital Signs Temp Pulse Resp BP Pulse Ox O2 Del Method O2 Flow Rate 36.7 C 100 18 120/63 94 Nasal Cannula 2 08/25/24 06:00 08/25/24 07:05 08/25/24 07:05 08/25/24 06:00 08/25/24 07:05 08/25/24 07:05 08/25/24 07:05 FiO2 30 08/25/24 05:49 Oxygen Flow Rate (L/min) 2 Oxygen Delivery Method Nasal Cannula Weight: 96.8 kg Body Mass Index (BMI) 43.1 Intake & Output: Intake and Output for Last 24 Hours 08/23/24 08/24/24 08/25/24 23:59 23:59 23:59 Intake Total 53.75 / 53.75 537.16 / 537.16 Output Total 400 / 400 Balance 53.75 / 53.75 137.16 / 137.16 Lab / Micro Data 08/25/24 04:08 08/25/24 04:08 Labs: Laboratory Results - last 24 hr 08/24/24 18:40: WBC 16.4 H, RBC 3.34 L, Hgb 9.3 L, Hct 31.0 L, MCV 92.8, MCH 27.8, MCHC 30.0 L, RDWStd Deviation 51.2 H, RDW Coeff of Giles 14.9 H, Plt Count 96 L, MPV 12.9 H, Immature Gran % (Auto) 0.900, Neut % (Auto) 61.8, Lymph % (Auto) 9.7 L, [place] % (Auto) 27.2 H, Eos % (Auto) 0.2, Baso % (Auto) 0.2, Absolute Neuts (auto) 10.1 H, Absolute Lymphs (auto) 1.59, Nucleated RBC % 0, Differential Comment SCANNED, Platelet Estimate MOD DEC, Sodium 143, Potassium 4.7, Chloride 102, Carbon Dioxide 31.5, Anion Gap 10, BUN 19, Creatinine 0.72, Estim Creat Clear Calc 65.67, Est GFR (MDRD) Non-Af 89, BUN/Creatinine Ratio 26.2 H, Glucose 89, Calcium 9.9, Troponin T High Sens 21 H D, NT pro BNP II 5153H 08/24/24 19:38: Urine Color Yellow, Urine Clarity Clear, Urine pH 5.0, Ur Specific Benedict 1.020, Urine Protein 30 H, Urine Glucose (UA) Normal, Urine Ketones Negative, Urine Occult Blood 50 H, UrineNitrite Negative, Urine Bilirubin Negative, Urine Urobilinogen Normal, Ur Leukocyte Esterase 100 H,Urine RBC 0-5 SEEN, Urine WBC 0-5 SEEN, Ur Squamous Epith Cells 25-50 SEEN, Ur Transition Epith Cell 0-5 SEEN, Uric Acid Crystals 1+, Urine Bacteria 2+, Urine Mucus 0 SEEN 08/24/24 20:40: Troponin T Hi Sens 2 Hr 18 H 08/24/24 23:50: Lactic Acid 1.0, Troponin T Hi Sens 4Hr 15 H 08/25/24 04:08: WBC 12.4 H, RBC 3.37 L, Hgb 9.5 L, Hct 31.3 L, MCV 92.9, MCH 28.2, MCHC 30.4 L, RDWStd Deviation 50.0 H, RDW Coeff of Giles 14.8 H, Plt Count 88 L, MPV 13.2 H, Immature Gran % (Auto) 1.300 H, Neut % (Auto) 89.1 H, Lymph % (Auto) 6.0 L, [place] % (Auto) 3.5, Eos % (Auto) 0.0, Baso % (Auto) 0.1, Absolute Neuts (auto) 11.1 H, Absolute Lymphs (auto) 0.75 L, Nucleated RBC % 0, Sodium 143, Potassium 4.9, Chloride 102, Carbon Dioxide 24.8, Anion Gap 16 H, BUN 20 H,Creatinine 0.78, Estim Creat Clear Calc 65.27, Est GFR (MDRD) Non-Af 81, BUN/Creatinine Ratio 26.3 H, Glucose 160 H, Calcium 10.0, Phosphorus 4.1, Magnesium 2.2, Total Bilirubin 0.79, AST 16, ALT 11, Alkaline Phosphatase 92, T otal Protein 6.7, Albumin 4.4, Globulin 2.4, Albumin/Globulin Ratio 1.9 Micro: Microbiology 08/25/24 01:05 Mucosa - Nasopharyngeal Respiratory Panel (PCR) - Final Parainfluenza 4 08/24/24 19:38 Urine, Clean Catch Legionella Antigen - Final 08/24/24 19:38 Urine, Clean Catch Streptococcus pneumoniae Antigen (M - Final Radiography Diagnostic Testing: Radiology Impression Chest X-Ray 08/24/24 19:39 IMPRESSION: Opacification of the right middle lobe, which may reflect pneumonitis/pneumonia. Stable severe cardiomegaly. Reading Location: [facility] Chest CT 08/24/24 23:01 IMPRESSION: IMPRESSION: Coronary artery calcification (CAC) is is present Moderate cardiomegaly. Mild pericardial effusion. Minimal bilateral pleural effusions. Passive atelectatic airspace disease of the lower lobes. Subsegmental atelectasis of the right middle lobe. Associated pneumonic consolidation is considered. Subsegmental atelectasis in the left lower lobe. Associated pneumonic consolidation is considered. Moderate coronary artery calcifications. Moderate interstitial pulmonary congestion. Enlarged main pulmonary artery, probably pulmonary arterial hypertension. Osteopenia. Severe subacute benign osteoporotic compression fracture of T12 vertebral body with mild associatedretropulsion and increased dorsal kyphosis. Diffuse spondylosis. Hepatomegaly. Diffuse irregularity of the hepatic contour, probably chronic. Reading Location: [place] [address] Physical Exam Const alert and no apparent distress HEENT head/scalp atraumatic and moist oral mucous membranes Resp normal respiratory effort, no retractions, no use of accessory muscles and clearto auscultation bilaterally Cardio regular rate, regular rhythm, S1 normal heart sound and S2 normal heart sound GI normal to inspection, nondistended, normoactive bowel sounds, soft to palpation,non-tender and non-distended Extremity normal to inspection Assessment & Plan Assessment/Plan (1) Acute on chronic heart failure with reduced ejection fraction (HFrEF, <= 40%): PLAN: BNP 5153. Pulmonary vascular congestion and pleural effusion on CT chest. on IV furosemide, metoprolol tartrate, lisinopril Echo w EF 40% mild concentric LVH. PASP 52mmHg PLAN: Plan Chronic afib with RVR: metoprolol 100 BID. anticoagulation with apixaban Parainfluenza infection: supportive mgmt. on empiric antibiotics. Chronic conditions: * COPD: BDs * HTN: lisinopril * HLP: atorvastatin * h/o PE: apixaban * CHRISTIANNE: CPAP VTE prophylaxis: not indicated as already anticoagulated. Charges/Coding Visit Charges Inpatient E&M: 25731 Subs Hosp L2 08/25/24 1130 Cosigner Signature (if applicable): CC: ~ Signed ADDENDUM by Dr. John Paul Will DO on 08/25/24 at 1410 Addendum Further review of the CT chest shows severe subacute to benign osteoporotic compression fracture ofT12 with mild associated retropulsion and increased dorsal kyphosis. Discussed with the patient andlata said she is not having any back pain but has had vertebral fractures in the past back in March. I reviewed through [facility] and found a CT of the abdomen pelvis performed on April 27 that showed superior endplate compression fracture of L4, interval subacute compression fracture of L3, and L2. Overall progression and increasingheight loss, sclerosis and mild retropulsion of T12 vertebral body. Osteopenia. Will check a 25-hydroxy vitamin D level. Clearly this fracture is not new and should not have any pains with no acute intervention at this time. The patient still having issues with shortness of breath we will continue with the current therapies in regards to antibiotics, furosemide and will add methylprednisolone as she may have an acutebronchitis due to the parainfluenza virus. Disposition: Will monitor the patient least overnight and then reassess see how she is doing tomorrow. Patient does have oxygen at night but only 3 of her CPAPat home. Eventual plan is home with homecare. 08/25/24 1410 Cosigner Signature (if applicable): cc: ~* Signed [facility]06-13-2025 Telephone encounter Note* Telephone Encounter - Kerri Morse MA - 08/25/2024 8:04 AM EDT [id number] Miscellaneous Notes* Telephone Encounter - Kerri Morse MA - 08/25/2024 8:04 AM EDT Note faxed * Telephone Encounter - Katia Roldan - 08/24/2024 8:59 AM EDT Message released to patient as written. Forgive me , but why does the patient need a hospital bed? Due to her sleep apnea or lumbar arthritis/pain? Patient's further questions if applicable: Patient states that they need this for their sleep apneaand breathing issues while they sleep. Patient states that they had a previous order for this but they cannot find their old paper. Please advise. Were all questions from office addressed or relayed to the patient from encounter: Yes * Telephone Encounter - Kerri Morse MA - 08/24/2024 8:29 AM EDT Left message for patient to return call to the office. Please release information to the patient. * Telephone Encounter - Gay Cannon - 08/23/2024 2:03 PM EDT Name of caller: Rhiannon Contact phone number: [phone] Relationship to Patient: family member patient and daughter Provider: Dr. Ibarra Practice: [facility] Chief Complaint/Reason for Call: Rhiannon called in stating that the order for a hospital bed has been misplaced and Patient is needing a new order sent to [facility] in [facility] along with chart notes explaining why Patient is needing this hospital bed. Rhiannon provided the fax number [phone]. Please advise. Best time of day caller can be reached: Any Patient advised that office/PCP has 24-48 business hours to return their call: No documented in this [facility]06-13-2025 History and physical note Author Jemima Poe [facility] Note Date/Time August 25, 2024 3:41 am [facility] Medical Records Department [address] [place] [address] H&P Exam - Hospitalist 08/24/24 2313 MR#: [id number] Acct: [id number] Name: ALTA BAKER Rep #:[id number] : 1950 74 From: Jemima Poe DO PCP: Dr. Kory Ibarra, Status:AD M IN Location: [facility] [id number] HPI - General General Date of Admission: 08/24/24 Date of Service: 08/24/24 Chief Complaint: Shortness of breath HPI Narrative LATA BAKER, is a 74 F who presented to the emergency department at [facility] on 08/24/2024 that she complained of shortness of breath. Patient complained of significant dyspnea on exertion and orthopnea with 2 pillows. She denies any chest pain. She has had a cough that developed over the last week that is now only starting to become productive of any sputum. Shehas had no fever or chills and no upper respiratory symptoms. She denies any wheezing. She does states she has had some lower extremity swelling. Unclear if she has gained any weight recently. She wears chronic oxygen for COPD at 1 to 2 L at home. She does have some conversational dyspnea on exam. Vital signs on presentation showed a temperature of 98.1, heart rate 128, respiratory was 26, blood pressure was 118/80 and pulse ox was 100% on 4 L nasalcannula as she was hypoxic on her baseline. CBC does show leukocytosis with a white count of 16.4. She does appear to have some chronic leukocytosis however. She has a chronic anemia which was stable. She has no left shift. Chemistry panel is unremarkable. Lactic acid was normal. Initial troponin was 21 with a delta of 18. BNP was 5153. Chest x- ray showed a right sided infiltrate in the right middle lobe with stable severe cardiomegaly. I did get a CT of her chest given this finding and it showed moderate cardiomegaly with a mild pericardial effusion, minimal bibasilar pleural effusions with atelectatic airspace disease in the lower lobes right middle lobe and left middle lobe with associated pneumonic consolidation to be considered. It was felt she also had moderate interstitial pulmonary congestion. Overall, I highly think that this is more likely an acute exacerbation of CHF however with the infiltrate on chest x-ray and CT as well as leukocytosis we will be prudent to start antibiotics as well. Do not think she needs steroids at this time as she is not wheezing diffusely on exam. PFSH Medical History (Updated 08/25/24 @ 03:[address] Jemima Poe, DO) Thrombocytopenia Anemia Congestive heart failure (CHF) Anxiety Pulmonary embolism [...] 40 mg PO BID diuretic 07/14/16 History lisinopril 10 mg tablet 20 mg PO DAILY blood pressur e 01/24/16 07/14/16 History atorvastatin 10 mg tablet 10 mg PO [...] extended release 12 hr (Mucus Relief ER) folic acid 1 mg tablet 1 mg PO DAILY see PCP Unknown History sertraline 50 mg tablet 50 mg PO QHS mental health 0 05/25/24 Unknown History docusate sodium 100 mg capsule 100 mg PO BID PRN const ipation 06/03/24 Unknown History (Col-Rite) albuterol sulfate 90 mcg/actuation 1 inh inhalation Q6 H #6.7 grams 06/05/24 Unknown Rx aerosol inhaler diltiazem HCl 60 mg tablet 60 mg PO Q8 #120 tabs 06/05 Unknown Rx metoprolol tartrate 25 mg tablet 75 mg (3 x 25 mg) PO BID #180 tabs 06/05/24 Unknown Rx prednisone 20 mg tablet 40 mg (2 x 20 mg) PO DAILY # 10 tabs 06/05/24 Unknown Rx tiotropium bromide 18 mcg capsule 1 cap inhalation SHREE LY #30 06/05/24 Unknown Rx with inhalation device (Spiriva inhalations with HandiHaler) azithromycin 250 mg tablet mg PO 08/24/24 Unknown Hist ory calcitonin (salmon) 200 1 spray DAILY 08/24/24 Unkno wn History unit/actuation nasal spray ferrous sulfate 324 mg (65 mg 324 mg PO BID 08/24/24 U nknown History iron) tablet,delayed release ipratropium 0.5 mg-albuterol 3 mg 3 ml inhalation 08/13 05/09 Unknown History (2.5 mg base)/3 mL nebulization soln lisinopril 20 mg tablet 20 mg PO DAILY 08/24/24 Unkn own History metoprolol tartrate 100 mg tablet 200 mg PO 08/24/24 U nknown History mometasone-formoterol HFA 100 inhalation 08/24/24 Unkn own History mcg-5 mcg/actuation aerosol inhaler (Dulera) ondansetron HCl 4 mg tablet 4 mg PO Q12H PRN PRN 08/24 Unknown History nausea/vomiting potassium chloride 10 mEq 10 meq PO BID 08/24/24 Unkno wn History tablet,extended release(part/cryst) potassium chloride 20 mEq 20 meq PO DAILY 08/24/24 Unk nown History tablet,extended release(part/cryst) risedronate 35 mg tablet mg PO 08/24/24 Unknown Histo ry tiotropium bromide 2.5 2 puff inhalation DAILY 08/13 05/09 Unknown History mcg/actuation mist for inhalation (Spiriva Respimat) Allergy/AdvReac Type Severity Reaction Status Date / Time bee venom protein (honey Allergy Other Verified 08/24/24 18:34 bee) (bee sting) Opioids - Morphine Analogues Allergy Other Verified 08/24/24 18:34 (narcotics) Tetanus Vaccines and Toxoid Allergy Unknown Verified 08/24/24 18:34 (Tetanus Vaccines & Toxoid) Family History Grandmother Breast cancer Father CVA (cerebral vascular accident) Surgical History H/O oophorectomy History of appendectomy Social History household members: children and none housing: house number of children: 2 current occupational status: retired pets and animals: Yes (2 dogs/2 cats) Smoking Status: Never smoker alcohol intake: never substance use type: does not use ROS Constitutional Constitutional: Reports weakness; Denies anorexia, change in weight, chills, fatigue, fever(s), malaise, night sweats or other Eyes Eyes: Denies blurry vision, change in eye color, change in vision, discharge from eye(s), double vision, erythema, eye pain, loss of vision or other ENT HEENT: Denies abnormal hearing, dysphagia, ear pain, epistaxis, headache(s), hearing loss, nasal congestion, nasal discharge, post nasal drip, sinus pressure, sore throat or other Cardiovascular Cardiovascular: Reports edema, orthopnea, paroxysmal nocturnal dyspnea and rapidheart rate; Denies chest pain, claudication, dyspnea on exertion, lightheadedness, palpitations, syncope or other Respiratory/Chest Respiratory/Chest: Reports cough and shortness of breath with exertion; Denies dyspnea, excessive phlegm production, hemoptysis, productive cough, shortness ofbreath at rest, wheezing or other Gastrointestinal Gastrointestinal: Denies abdominal pain, coffee ground emesis, constipation, diarrhea, dyspepsia, hematemesis, hematochezia, loose stools, melena, nausea, vomiting or other Genitourinary Genitourinary: Denies burning urination, difficulty urinating, dysuria, hematuria, nocturia, urinary frequency, urinary hesitancy, urinary incontinence,urinary urgency or other Musculoskeletal Musculoskeletal: Denies arthralgias, back pain, joint pain, joint stiffness, joint swelling, myalgias, neck pain or other Neurologic Neurologic: Denies abnormal gait, abnormal speech, confusion, disequilibrium, dizziness, focal weakness, headache(s), numbness, paresthesias, seizure-like activity, seizures, syncope, tingling, tremor(s) or other Psychiatric Psychiatric: Denies anxiety, depression, homicidal ideation, suicidal ideation or other Endocrine Endocrinology: Denies change in body appearance, cold intolerance, excessive sweating, heat intolerance, polydipsia, polyuria or other Hematologic/Lymphatic Hematologic/Lymphatic: Denies anemia, easy bleeding, easy bruising, lymphadenopathy or other Allergic/Immunologic Allergic/Immunologic: Denies rhinitis, hives, eczemia, asthma or other Vital Signs Vital Signs Vital Signs: 08/24/24 18:34 08/24/24 18:38 08/24/24 18:45 Temperature 98.1 F 98.1 F Temperature Source Oral Oral Pulse Rate 128 H 128 H Respiratory Rate 26 H 26 H Respiratory Effort Normal Respiratory Depth Normal Respiratory Pattern Normal Blood Pressure 118/80 118/80 Blood Pressure Mean 92 92 Pulse Ox 100 100 Oxygen Delivery Method Nasal Cannula Nasal Cannula Nasal Cannula Oxygen Flow Rate (L/min) 4 4 3 08/24/24 19:38 08/24/24 20:00 08/24/24 20:04 Temperature 98.8 F 98.8 F Temperature Source Oral Oral Pulse Rate 121 H 121 H 126 H Respiratory Rate 23 H 23 H 23 H Respiratory Effort Respiratory Depth Respiratory Pattern Tachypnea Blood Pressure 121/75 H 121/75 H Blood Pressure Mean 90 90 Pulse Ox 100 100 Oxygen Delivery Method Nasal Cannula Nasal Cannula Oxygen Flow Rate (L/min) 4 4 08/24/24 20:59 08/24/24 22:01 08/24/24 22:47 Temperature 98.8 F 98.6 F Temperature Source Oral Pulse Rate 108 H 120 H 124 H Respiratory Rate 23 H 22 H 23 H Respiratory Effort Respiratory Depth Respiratory Pattern Blood Pressure 118/68 105/93 H 109/73 Blood Pressure Mean 84 97 85 Pulse Ox 98 97 97 Oxygen Delivery Method Nasal Cannula Nasal Cannula Oxygen Flow Rate (L/min) 3 2 08/24/24 23:04 Temperature 98.6 F Temperature Source Oral Pulse Rate 132 H Respiratory Rate 23 H Respiratory Effort Respiratory Depth Respiratory Pattern Blood Pressure 116/80 Blood Pressure Mean 92 Pulse Ox 99 Oxygen Delivery Method Oxygen Flow Rate (L/min) 2 Weight Weight: 97.8 kg Body Mass Index (BMI) 43.5 Physical Exam Const alert, oriented x3, no apparent distress and well nourished; Negative for average body habitus or healthy appearing Constitutional Narrative: Morbidly obese, white female, sitting up in bed, some conversational dyspnea butdoes not Perricone comfortable, does not look toxic, very pleasant General Appearance: cooperative HEENT normocephalic, head/scalp atraumatic, hearing grossly normal bilaterally and moist oral mucous membranes HEENT Narrative: Mallampati 3, no thrush, patient is edentulous Eyes conjunctivae normal Eyes Narrative: No scleral icterus Neck supple Neck Narrative: Trachea midline, mild JVD, no LAD Resp No normal respiratory effort, no retractions, no use of accessory muscles and Noclear to auscultation bilaterally Resp Narrative: Diffusely diminished with crackles at bases bilaterally, mild conversational dyspnea with no signs of extremis Auscultation: crackles; Negative for rhonchi or wheezes Cardio S1 normal heart sound, S2 normal heart sound, no murmurs, no rub, no gallops andno clicks Cardio Narrative: Irregularly irregular with tachycardia GI normal to inspection, nondistended, normoactive bowel sounds, soft to palpation and non-tender GI Narrative: Large protuberant abdomen Extremity Extremity Narrative: 1+ bilateral lower extremity edema, no cyanosis or clubbing Neuro oriented x3, moves all extremities and no focal motor deficits Neuro Narrative: Debility noted at baseline Speech: speech normal Psych affect normal Psych Narrative: Eye contact is good and patient interacts appropriately Results Lab / Micro Data 08/24/24 18:40 08/24/24 18:40 Labs: Laboratory Results - last 24 hr 08/24/24 18:40: WBC 16.4 H, RBC 3.34 L, Hgb 9.3 L, Hct 31.0 L, MCV 92.8, MCH 27.8, MCHC 30.0 L, RDW Std Deviation 51.2 H, RDW Coeff of Giles 14.9 H, Plt Count 96 L, MPV 12.9 H, Immature Gran % (Auto) 0.900, Neut % (Auto) 61.8, Lymph % (Auto) 9.7 L, [place] % (Auto) 27.2 H, Eos % (Auto) 0.2, Baso % (Auto) 0.2, Absolute Neuts (auto) 10.1 H, Absolute Lymphs (auto) 1.59, Nucleated RBC % 0, Differential Comment SCANNED, Platelet Estimate MOD DEC, Sodium 143, Potassium 4.7, Chloride 102, Carbon Dioxide 31.5, Anion Gap 10, BUN 19, Creatinine 0.72, Estim Creat Clear Calc 65.67, Est GFR (MDRD) Non-Af 89, BUN/Creatinine Ratio 26.2 H, Glucose 89, Calcium 9.9, Troponin T High Sens 21 H D, NT pro BNP II 5153H 08/24/24 19:38: Urine Color Yellow, Urine Clarity Clear, Urine pH 5.0, Ur Specific Benedict 1.020, Urine Protein 30 H, Urine Glucose (UA) Normal, Urine Ketones Negative, Urine Occult Blood 50 H, Urine Nitrite Negative, Urine Bilirubin Negative, Urine Urobilinogen Normal, Ur Leukocyte Esterase 100 H, Urine RBC 0-5 SEEN, Urine WBC 0-5 SEEN, Ur Squamous Epith Cells 25-50 SEEN, Ur Transition Epith Cell 0-5 SEEN, Uric Acid Crystals 1+, Urine Bacteria 2+, Urine Mucus 0 SEEN 08/24/24 20:40: Troponin T Hi Sens 2 Hr 18 H Imaging Radiology Impression Chest X-Ray 08/24/24 19:39 IMPRESSION: Opacification of the right middle lobe, which may reflect pneumonitis/pneumonia. Stable severe cardiomegaly. Reading Location: [id number] Assessment & Plan Assessment/Plan (1) Hypoxia: (2) Abnormal chest x-ray: (3) Acute on chronic heart failure with reduced ejection fraction (HFrEF, <= 40%): (4) Atrial fibrillation with RVR: (5) Leukocytosis: PLAN: Plan Acute hypoxia on chronic hypoxic respiratory failure secondary to HFrEF/possibleright-sided infiltrate versus atelectasis - Patient uses 1 to 2 L at baseline - Requiring 4 L at the time of admission but does not meet criteria for acute hypoxic respiratory failure - Most recent echo on 06/03/2024 shows an EF of 40% with mild LVH and global moderate hypokinesis with pulmonary artery systolic pressures of 52 mmHg -CT of the chest showed possible infiltrate versus atelectasis at the bases and right side of the chest given this we will be aggressive and start antibiotics for now -Low threshold to just continue if patient rapidly improves with diuresis -Respiratory viral panel is pending - COVID-19 is pending - Strep pneumo and Legionella antigens are pending -Will utilize ceftriaxone and azithromycin for now -Aggressive pulmonary toilet with scheduled DuoNebs and as needed albuterol -I-S -Acapella -Mucinex 1200 p.o. twice daily - Lasix 40 mg IV push twice daily - BNP is markedly elevated - No need for a repeat echocardiogram as she just had one in May - Daily weights - Fluid and sodium restricted diet - Accurate I's and O's Chronic A. fib with current RVR -Patient states she has persistent atrial fibrillation and is typically well managed with metoprolol per med rec -Follows with cardiology at [facility] -Will try to avoid Cardizem due to depressed EF of 40% -Continue home metoprolol but increase to 100 mg twice daily from 75 mg twice daily -Continue apixaban -We will monitor on telemetry -Heart rate seems to be improving and was in the low 100s at the time of my evaluation COPD/asthma - Patient is oxygen dependent at baseline - Treatment as noted above - Restart inhalers at discharge Hypertension -Continue home lisinopril -Continue home metoprolol at increased dose due to tachycardia -Continue Lasix but utilize IV for now due to heart failure Hyperlipidemia -Continue home atorvastatin History of PE - Continue full anticoagulation with apixaban 5 mg p.o. twice daily CHRISTIANNE -Continue CPAP Morbid obesity -Recommend weight loss -BMI is 43.3 -Complicates treatment, prognosis, outcomes DVT prophylaxis -Continue home apixaban CODE STATUS -DNR CCA with no intubation Sepsis Attestation Sepsis Alert: Yes Sepsis Attestation: Sepsis Ruled Out (Patient qualified with endorgan damage having thrombocytopenia however this is a chronic etiology for her.) Date exam was performed: 08/24/24 Time exam was performed: 23:32 Charges/Coding Visit Charges Inpatient E&M: 98916 Init Hosp L2 08/25/24 0341 <Electronically signed by Jemima Poe DO> Cosigner Signature (if applicable): CC: Dr. Kory Ibarra DO; Dr. Jemima Poe DO~ Signed [facility] Work Phone: [phone] History and physical note [facility] Medical Records Department [address] [place] [address] H&P Exam - Hospitalist 08/24/24 2313 MR#: [id number] Acct: [id number] Name: ALTA BAKER Rep #:[id number] : 1950 74 From: Jemima Poe DO PCP: Dr. Kory Ibarra DO Status:AD M IN Location: [place] [id number] HPI - General General Date of Admission: 08/24/24 Date of Service: 08/24/24 Chief Complaint: Shortness of breath HPI Narrative ALTA SAMUEL, is a 74 F who presented to the emergency department at [facility] on 08/24/2024 that she complained of shortness of breath. Patient complained of significant dyspnea onexertion and orthopnea with 2 pillows. She denies any chest pain. She has had a cough that developed over the last week that is now only starting to become productive of any sputum. Shehas had no fever or chills and no upper respiratory symptoms. She denies any wheezing. She does states she has hadsome lower extremity swelling. Unclear if she has gained any weight recently. She wears chronic oxygen for COPD at 1 to 2 L at home. She does have some conversational dyspnea on exam. Vital signs on presentation showed a temperature of 98.1, heart rate 128, respiratory was 26, bloodpressure was 118/80 and pulse ox was 100% on 4 L nasalcannula as she was hypoxic on her baseline. CBC does show leukocytosis with a white count of 16.4. She does appear to have some chronic leukocytosis however. She has a chronic anemia which was stable. She has no left shift. Chemistry panel is unremarkable. Lactic acid was normal. Initial troponin was 21 with a delta of 18. BNP was 5153. Chest x-ray showed a right sided infiltrate in the right middle lobe with stable severe cardiomegaly. I did get a CT of her chest given this finding and it showed moderate cardiomegaly with a mild pericardial effusion, minimal bibasilar pleural effusions with atelectatic airspace disease in the lower lobes right middle lobe and left middle lobe with associated pneumonic consolidation to be considered. It was felt she also had moderate interstitial pulmonary congestion. Overall, I highly think that this is more likely an acute exacerbation of CHF however with the infiltrate on chest x-ray and CT as well as leukocytosis we will be prudent to start antibiotics as well. Do not think she needs steroids at this time as she is not wheezing diffusely on exam. [facility] Medical History (Updated 08/25/24 @ 03:[address] Jemima Poe DO) Thrombocytopenia Anemia Congestive heart failure (CHF) Anxiety Pulmonary embolism [...] 40 mg PO BID diuretic 07/14/16 History lisinopril 10 mg tablet 20 mg PO DAILY blood pressur e 01/24/16 07/14/16 History atorvastatin 10 mg tablet 10 mg PO [...] extended release 12 hr (Mucus Relief ER) folic acid 1 mg tablet 1 mg PO DAILY see PCP Unknown History sertraline 50 mg tablet 50 mg PO QHS mental health 0 05/25/24 Unknown History docusate sodium 100 mg capsule 100 mg PO BID PRN const ipation 06/03/24 Unknown History (Col-Rite) albuterol sulfate 90 mcg/actuation 1 inh inhalation Q6 H #6.7 grams 06/05/24 Unknown Rx aerosol inhaler diltiazem HCl 60 mg tablet 60 mg PO Q8 #120 tabs 06/05 Unknown Rx metoprolol tartrate 25 mg tablet 75 mg (3 x 25 mg) PO BID #180 tabs 06/05/24 Unknown Rx prednisone 20 mg tablet 40 mg (2 x 20 mg) PO DAILY # 10 tabs 06/05/24 Unknown Rx tiotropium bromide 18 mcg capsule 1 cap inhalation SHREE LY #30 06/05/24 Unknown Rx with inhalation device (Spiriva inhalations with HandiHaler) azithromycin 250 mg tablet mg PO 08/24/24 Unknown Hist ory calcitonin (salmon) 200 1 spray DAILY 08/24/24 Unkno wn History unit/actuation nasal spray ferrous sulfate 324 mg (65 mg 324 mg PO BID 08/24/24 U nknown History iron) tablet,delayed release ipratropium 0.5 mg-albuterol 3 mg 3 ml inhalation 08/13 05/09 Unknown History (2.5 mg base)/3 mL nebulization soln lisinopril 20 mg tablet 20 mg PO DAILY 08/24/24 Unkn own History metoprolol tartrate 100 mg tablet 200 mg PO 08/24/24 U nknown History mometasone-formoterol HFA 100 inhalation 08/24/24 Unkn own History mcg-5 mcg/actuation aerosol inhaler (Dulera) ondansetron HCl 4 mg tablet 4 mg PO Q12H PRN PRN 08/24 Unknown History nausea/vomiting potassium chloride 10 mEq 10 meq PO BID 08/24/24 Unkno wn History tablet,extended release(part/cryst) potassium chloride 20 mEq 20 meq PO DAILY 08/24/24 Unk nown History tablet,extended release(part/cryst) risedronate 35 mg tablet mg PO 08/24/24 Unknown Histo ry tiotropium bromide 2.5 2 puff inhalation DAILY 08/13 05/09 Unknown History mcg/actuation mist for inhalation (Spiriva Respimat) Allergy/AdvReac Type Severity Reaction Status Date / Time bee venom protein (honey Allergy Other Verified 08/24/24 18:34 bee) (bee sting) Opioids - Morphine Analogues Allergy Other Verified 08/24/24 18:34 (narcotics) Tetanus Vaccines and Toxoid Allergy Unknown Verified 08/24/24 18:34 (Tetanus Vaccines & Toxoid) Family History Grandmother Breast cancer Father CVA (cerebral vascular accident) Surgical History H/O oophorectomy History of appendectomy Social History household members: children and none housing: house number of children: 2 current occupational status: retired pets and animals: Yes (2 dogs/2 cats) Smoking Status: Never smoker alcohol intake: never substance use type: does not use ROS Constitutional Constitutional: Reports weakness; Denies anorexia, change in weight, chills, fatigue, fever(s), malaise, night sweats or other Eyes Eyes: Denies blurry vision, change in eye color, change in vision, discharge from eye(s), double vision, erythema, eye pain, loss of vision or other ENT HEENT: Denies abnormal hearing, dysphagia, ear pain, epistaxis, headache(s), hearing loss, nasal congestion, nasal discharge, post nasal drip, sinus pressure, sore throat or other Cardiovascular Cardiovascular: Reports edema, orthopnea, paroxysmal nocturnal dyspnea and rapidheart rate; Denies chest pain, claudication, dyspnea on exertion, lightheadedness, palpitations, syncope or other Respiratory/Chest Respiratory/Chest: Reports cough and shortness of breath with exertion; Denies dyspnea, excessive phlegm production, hemoptysis, productive cough, shortness ofbreath at rest, wheezing or other Gastrointestinal Gastrointestinal: Denies abdominal pain, coffee ground emesis, constipation, diarrhea, dyspepsia, hematemesis, hematochezia, loose stools, melena, nausea, vomiting or other Genitourinary Genitourinary: Denies burning urination, difficulty urinating, dysuria, hematuria, nocturia, urinary frequency, urinary hesitancy, urinary incontinence,urinary urgency or other Musculoskeletal Musculoskeletal: Denies arthralgias, back pain, joint pain, joint stiffness, joint swelling, myalgias, neck pain or other Neurologic Neurologic: Denies abnormal gait, abnormal speech, confusion, disequilibrium, dizziness, focal weakness, headache(s), numbness, paresthesias, seizure-like activity, seizures, syncope, tingling, tremor(s) or other Psychiatric Psychiatric: Denies anxiety, depression, homicidal ideation, suicidal ideation or other Endocrine Endocrinology: Denies change in body appearance, cold intolerance, excessive sweating, heat intolerance, polydipsia, polyuria or other Hematologic/Lymphatic Hematologic/Lymphatic: Denies anemia, easy bleeding, easy bruising, lymphadenopathy or other Allergic/Immunologic Allergic/Immunologic: Denies rhinitis, hives, eczemia, asthma or other Vital Signs Vital Signs Vital Signs: 08/24/24 18:34 08/24/24 18:38 08/24/24 18:45 Temperature 98.1 F 98.1 F Temperature Source Oral Oral Pulse Rate 128 H 128 H Respiratory Rate 26 H 26 H Respiratory Effort Normal Respiratory Depth Normal Respiratory Pattern Normal Blood Pressure 118/80 118/80 Blood Pressure Mean 92 92 Pulse Ox 100 100 Oxygen Delivery Method Nasal Cannula Nasal Cannula Nasal Cannula Oxygen Flow Rate (L/min) 4 4 3 08/24/24 19:38 08/24/24 20:00 08/24/24 20:04 Temperature 98.8 F 98.8 F Temperature Source Oral Oral Pulse Rate 121 H 121 H 126 H Respiratory Rate 23 H 23 H 23 H Respiratory Effort Respiratory Depth Respiratory Pattern Tachypnea Blood Pressure 121/75 H 121/75 H Blood Pressure Mean 90 90 Pulse Ox 100 100 Oxygen Delivery Method Nasal Cannula Nasal Cannula Oxygen Flow Rate (L/min) 4 4 08/24/24 20:59 08/24/24 22:01 08/24/24 22:47 Temperature 98.8 F 98.6 F Temperature Source Oral Pulse Rate 108 H 120 H 124 H Respiratory Rate 23 H 22 H 23 H Respiratory Effort Respiratory Depth Respiratory Pattern Blood Pressure 118/68 105/93 H 109/73 Blood Pressure Mean 84 97 85 Pulse Ox 98 97 97 Oxygen Delivery Method Nasal Cannula Nasal Cannula Oxygen Flow Rate (L/min) 3 2 08/24/24 23:04 Temperature 98.6 F Temperature Source Oral Pulse Rate 132 H Respiratory Rate 23 H Respiratory Effort Respiratory Depth Respiratory Pattern Blood Pressure 116/80 Blood Pressure Mean 92 Pulse Ox 99 Oxygen Delivery Method Oxygen Flow Rate (L/min) 2 Weight Weight: 97.8 kg Body Mass Index (BMI) 43.5 Physical Exam Const alert, oriented x3, no apparent distress and well nourished; Negative for average body habitus or healthy appearing Constitutional Narrative: Morbidly obese, white female, sitting up in bed, some conversational dyspnea butdoes not Perricone comfortable, does not look toxic, very pleasant General Appearance: cooperative HEENT normocephalic, head/scalp atraumatic, hearing grossly normal bilaterally and moist oral mucous membranes HEENT Narrative: Mallampati 3, no thrush, patient is edentulous Eyes conjunctivae normal Eyes Narrative: No scleral icterus Neck supple Neck Narrative: Trachea midline, mild JVD, no LAD Resp No normal respiratory effort, no retractions, no use of accessory muscles and Noclear to auscultation bilaterally Resp Narrative: Diffusely diminished with crackles at bases bilaterally, mild conversational dyspnea with no signs of extremis Auscultation: crackles; Negative for rhonchi or wheezes Cardio S1 normal heart sound, S2 normal heart sound, no murmurs, no rub, no gallops andno clicks Cardio Narrative: Irregularly irregular with tachycardia GI normal to inspection, nondistended, normoactive bowel sounds, soft to palpation and non-tender GI Narrative: Large protuberant abdomen Extremity Extremity Narrative: 1+ bilateral lower extremity edema, no cyanosis or clubbing Neuro oriented x3, moves all extremities and no focal motor deficits Neuro Narrative: Debility noted at baseline Speech: speech normal Psych affect normal Psych Narrative: Eye contact is good and patient interacts appropriately Results Lab / Micro Data 08/24/24 18:40 08/24/24 18:40 Labs: Laboratory Results - last 24 hr 08/24/24 18:40: WBC 16.4 H, RBC 3.34 L, Hgb 9.3 L, Hct 31.0 L, MCV 92.8, MCH 27.8, MCHC 30.0 L, RDWStd Deviation 51.2 H, RDW Coeff of Giles 14.9 H, Plt Count 96 L, MPV 12.9 H, Immature Gran % (Auto) 0.900, Neut % (Auto) 61.8, Lymph % (Auto) 9.7 L, [place] % (Auto) 27.2 H, Eos % (Auto) 0.2, Baso % (Auto) 0.2, Absolute Neuts (auto) 10.1 H, Absolute Lymphs (auto) 1.59, Nucleated RBC % 0, Differential Comment SCANNED, Platelet Estimate MOD DEC, Sodium 143, Potassium 4.7, Chloride 102, Carbon Dioxide 31.5, Anion Gap 10, BUN 19, Creatinine 0.72, Estim Creat Clear Calc 65.67, Est GFR (MDRD) Non-Af 89, BUN/Creatinine Ratio 26.2 H, Glucose 89, Calcium 9.9, Troponin T High Sens 21 H D, NT pro BNP II 5153H 08/24/24 19:38: Urine Color Yellow, Urine Clarity Clear, Urine pH 5.0, Ur Specific Benedict 1.020, Urine Protein 30 H, Urine Glucose (UA) Normal, Urine Ketones Negative, Urine Occult Blood 50 H, UrineNitrite Negative, Urine Bilirubin Negative, Urine Urobilinogen Normal, Ur Leukocyte Esterase 100 H,Urine RBC 0-5 SEEN, Urine WBC 0-5 SEEN, Ur Squamous Epith Cells 25-50 SEEN, Ur Transition Epith Cell 0-5 SEEN, Uric Acid Crystals 1+, Urine Bacteria 2+, Urine Mucus 0 SEEN 08/24/24 20:40: Troponin T Hi Sens 2 Hr 18 H Imaging Radiology Impression Chest X-Ray 08/24/24 19:39 IMPRESSION: Opacification of the right middle lobe, which may reflect pneumonitis/pneumonia. Stable severe cardiomegaly. Reading Location: [facility] Assessment & Plan Assessment/Plan (1) Hypoxia: (2) Abnormal chest x-ray: (3) Acute on chronic heart failure with reduced ejection fraction (HFrEF, <= 40%): (4) Atrial fibrillation with RVR: (5) Leukocytosis: PLAN: Plan Acute hypoxia on chronic hypoxic respiratory failure secondary to HFrEF/possibleright-sided infiltrate versus atelectasis - Patient uses 1 to 2 L at baseline - Requiring 4 L at the time of admission but does not meet criteria for acute hypoxic respiratory failure - Most recent echo on 06/03/2024 shows an EF of 40% with mild LVH and global moderate hypokinesis with pulmonary artery systolic pressures of 52 mmHg -CT of the chest showed possible infiltrate versus atelectasis at the bases and right side of the chest given this we will be aggressive and start antibiotics for now -Low threshold to just continue if patient rapidly improves with diuresis -Respiratory viral panel is pending - COVID-19 is pending - Strep pneumo and Legionella antigens are pending -Will utilize ceftriaxone and azithromycin for now -Aggressive pulmonary toilet with scheduled DuoNebs and as needed albuterol -I-S -Acapella -Mucinex 1200 p.o. twice daily - Lasix 40 mg IV push twice daily - BNP is markedly elevated - No need for a repeat echocardiogram as she just had one in May - Daily weights - Fluid and sodium restricted diet - Accurate I's and O's Chronic A. fib with current RVR -Patient states she has persistent atrial fibrillation and is typically well managed with metoprolol per med rec -Follows with cardiology at [facility] -Will try to avoid Cardizem due to depressed EF of 40% -Continue home metoprolol but increase to 100 mg twice daily from 75 mg twice daily -Continue apixaban -We will monitor on telemetry -Heart rate seems to be improving and was in the low 100s at the time of my evaluation COPD/asthma - Patient is oxygen dependent at baseline - Treatment as noted above - Restart inhalers at discharge Hypertension -Continue home lisinopril -Continue home metoprolol at increased dose due to tachycardia -Continue Lasix but utilize IV for now due to heart failure Hyperlipidemia -Continue home atorvastatin History of PE - Continue full anticoagulation with apixaban 5 mg p.o. twice daily CHRISTIANNE -Continue CPAP Morbid obesity -Recommend weight loss -BMI is 43.3 -Complicates treatment, prognosis, outcomes DVT prophylaxis -Continue home apixaban CODE STATUS -DNR CCA with no intubation Sepsis Attestation Sepsis Alert: Yes Sepsis Attestation: Sepsis Ruled Out (Patient qualified with endorgan damage having thrombocytopenia however this is a chronic etiology for her.) Date exam was performed: 08/24/24 Time exam was performed: 23:32 Charges/Coding Visit Charges Inpatient E&M: 41119 Init Hosp L2 08/25/24 0341 Cosigner Signature (if applicable): CC: Dr. Kory Ibarra DO; Dr. Jemima Poe DO~ Signed [facility]06-13-2025 Discharge summary Author John Paul Harrison [facility] Note Date/Time August 24, 2024 11:4 9pm [facility] Medical Records Department [address] [place] [address] Emergency Department Summary 08/24/24 MR#: [id number] Acct: [id number] Name: ALTA BAKER Rep #:[id number] : 1950 74 From: John Paul Randhawa PCP: Dr. Kory Ibarra DO Status:RE G ER Location: ED HPI History of Present Illness Chief Complaint: Shortness of Breath Informant: patient Onset/Context/Timing Onset: Weeks (1) Context: gradual Timing: Continuous Quality: Positive for Dyspnea on exertion and Orthopnea (Two-pillow) Worsened by: Exertion and Lying flat Relieved by: Albuterol Associated Symptoms cough; Negative for rhinorrhea, post nasal drip, ear pain, fever, sore throat, chills, sweats, clear sputum, white sputum, yellow sputum or green sputum Chest Pain: Positive for None Narrative Narrative: Patient presents with shortness of breath that has been getting worse over the past week. Patient states her breathing is worse with any exertion. Patient states she can only walk a few feet before she becomes short of breath and has to stop. Patient admits to a cough but denies any sputum production. Patient states that he did have some brown sputum earlier this week but this has resolved. Patient denies any fevers or chills. Patient denies any rhinorrhea or sore throat. Patient denies any chest pain. PE Risk Factors: Negative for Cancer, OCP + Smoking + > 35, Prior DVT or PE, Recent immobilization, Recent surgery or Recent travel [facility] Medical History Congestive heart failure (CHF) Anxiety Pulmonary embolism [...] 40 mg PO BID diuretic 07/14/16 History lisinopril 10 mg tablet 20 mg PO DAILY blood pressur e 01/24/16 07/14/16 History atorvastatin 10 mg tablet 10 mg PO [...] extended release 12 hr (Mucus Relief ER) folic acid 1 mg tablet 1 mg PO DAILY see PCP Unknown History sertraline 50 mg tablet 50 mg PO QHS mental health 0 05/25/24 Unknown History docusate sodium 100 mg capsule 100 mg PO BID PRN const ipation 06/03/24 Unknown History (Col-Rite) albuterol sulfate 90 mcg/actuation 1 inh inhalation Q6 H #6.7 grams 06/05/24 Unknown Rx aerosol inhaler diltiazem HCl 60 mg tablet 60 mg PO Q8 #120 tabs 06/05 Unknown Rx metoprolol tartrate 25 mg tablet 75 mg (3 x 25 mg) PO BID #180 tabs 06/05/24 Unknown Rx prednisone 20 mg tablet 40 mg (2 x 20 mg) PO DAILY # 10 tabs 06/05/24 Unknown Rx tiotropium bromide 18 mcg capsule 1 cap inhalation SHREE LY #30 06/05/24 Unknown Rx with inhalation device (Spiriva inhalations with HandiHaler) azithromycin 250 mg tablet mg PO 08/24/24 Unknown Hist ory calcitonin (salmon) 200 1 spray DAILY 08/24/24 Unkno wn History unit/actuation nasal spray ferrous sulfate 324 mg (65 mg 324 mg PO BID 08/24/24 U nknown History iron) tablet,delayed release ipratropium 0.5 mg-albuterol 3 mg 3 ml inhalation 08/13 05/09 Unknown History (2.5 mg base)/3 mL nebulization soln lisinopril 20 mg tablet 20 mg PO DAILY 08/24/24 Unkn own History metoprolol tartrate 100 mg tablet 200 mg PO 08/24/24 U nknown History mometasone-formoterol HFA 100 inhalation 08/24/24 Unkn own History mcg-5 mcg/actuation aerosol inhaler (Dulera) ondansetron HCl 4 mg tablet 4 mg PO Q12H PRN PRN 08/24 Unknown History nausea/vomiting potassium chloride 10 mEq 10 meq PO BID 08/24/24 Unkno wn History tablet,extended release(part/cryst) potassium chloride 20 mEq 20 meq PO DAILY 08/24/24 Unk nown History tablet,extended release(part/cryst) risedronate 35 mg tablet mg PO 08/24/24 Unknown Histo ry tiotropium bromide 2.5 2 puff inhalation DAILY 08/13 05/09 Unknown History mcg/actuation mist for inhalation (Spiriva Respimat) Allergy/AdvReac Type Severity Reaction Status Date / Time bee venom protein (honey Allergy Other Verified 08/24/24 18:34 bee) (bee sting) Opioids - Morphine Analogues Allergy Other Verified 08/24/24 18:34 (narcotics) Tetanus Vaccines and Toxoid Allergy Unknown Verified 08/24/24 18:34 (Tetanus Vaccines & Toxoid) Family History Grandmother Breast cancer Father CVA (cerebral vascular accident) Surgical History H/O oophorectomy History of appendectomy Social History household members: children and none housing: house number of children: 2 current occupational status: retired pets and animals: Yes (2 dogs/2 cats) Smoking Status: Never smoker alcohol intake: never substance use type: does not use ROS ROS ED Constitutional Constitutional ED: Denies chills or fever(s) Eyes Eyes: Denies blurry vision or change in vision ENT ENT ED: Denies rhinorrhea or sore throat Cardiovascular Cardiovascular: Denies chest pain or palpitations Respiratory/Chest Respiratory/Chest: Reports cough and dyspnea Gastrointestinal Gastrointestinal: Denies nausea or vomiting Genitourinary Genitourinary ED: Denies dysuria or hematuria Musculoskeletal Musculoskeletal: Denies back pain or neck pain Integumentary Denies abscess or rash Neurologic Neurologic: Denies headache(s) or weakness Allergic/Immunologic Allergic/Immunologic ED: Denies mouth swelling or urticaria EXAM Physical Exam Const Vital Signs: 08/24/24 18:34 08/24/24 18:38 08/24/24 18:45 Temperature 98.1 F 98.1 F Temperature Source Oral Oral Pulse Rate 128 H 128 H Respiratory Rate 26 H 26 H Respiratory Effort Normal Respiratory Depth Normal Respiratory Pattern Normal Blood Pressure 118/80 118/80 Blood Pressure Mean 92 92 Pulse Ox 100 100 Oxygen Delivery Method Nasal Cannula Nasal Cannula Nasal Cannula Oxygen Flow Rate (L/min) 4 4 3 08/24/24 19:38 08/24/24 20:00 08/24/24 20:04 Temperature 98.8 F 98.8 F Temperature Source Oral Oral Pulse Rate 121 H 121 H 126 H Respiratory Rate 23 H 23 H 23 H Respiratory Effort Respiratory Depth Respiratory Pattern Tachypnea Blood Pressure 121/75 H 121/75 H Blood Pressure Mean 90 90 Pulse Ox 100 100 Oxygen Delivery Method Nasal Cannula Nasal Cannula Oxygen Flow Rate (L/min) 4 4 08/24/24 20:59 08/24/24 22:01 Temperature 98.8 F 98.6 F Temperature Source Oral Pulse Rate 108 H 120 H Respiratory Rate 23 H 22 H Respiratory Effort Respiratory Depth Respiratory Pattern Blood Pressure 118/68 105/93 H Blood Pressure Mean 84 97 Pulse Ox 98 97 Oxygen Delivery Method Nasal Cannula Oxygen Flow Rate (L/min) 3 Positive well nourished and well developed General Appearance ED: well developed and NAD HEENT Reports moist mucous membranes Resp normal respiratory effort Auscultation: rales bilateral base and wheezes expiratory wheezes Cardio Rate: tachycardic Rhythm: abnormal rhythm irregularly irregular GI non-tender and non-distended Palpation: soft Extremity normal to inspection General Extremety ED: Negative for tenderness Neuro oriented x3, CN's II-XII intact bilaterally and no sensory deficits noted Fantasma Coma Scale: document GCS findings Spontaneous Obeys Commands Oriented 15 Sensorium / Orientation: alert Psych mental status grossly normal MDM MDM MDM Narrative Medical decision making narrative: Differential diagnosis includes COPD exacerbation, congestive heart failure, pneumonia, bronchitis, viral illness, electrolyte abnormality, cardiac arrhythmia, and cardiac ischemia. EKG will be obtained to assess for cardiac dysrhythmia and cardiac ischemia. Chest x-ray will be obtained to assess for pneumonia, bronchitis, and congestive heart failure. CBC will be obtained to assess for leukocytosis and anemia. Basic metabolic profile will be obtained toassess for electrolyte abnormality and renal function. BMP will be obtained to assess for congestive heart failure. High-sensitivity troponin will be obtainedto assess for cardiac ischemia. 2-hour repeat high-sensitivity troponin will beobtained to assess for ongoing cardiac ischemia. Lab Data Attestation: I reviewed the patient's lab results. Lab results narrative: CBC was reviewed. There is a leukocytosis of 16.4. There is a mild anemia witha hemoglobin of 9.3 and hematocrit 31.0. Platelets were slightly low at 96. Basic metabolic profile was reviewed and was within normal limits. High-sensitivity troponin was reviewed and was slightly elevated at 21. 2-hour repeat high- sensitivity troponin was reviewed and was improved at 18. BNP was reviewed and was elevated at 5153. Urinalysis was reviewed. Leukocyte esterasewas 100. There are 25-50 squamous epithelial cells. Labs: Laboratory Results - last 24 hr 08/24/24 08/24/24 08/24/24 18:40 19:38 20:40 WBC 16.4 H RBC 3.34 L Hgb 9.3 L Hct 31.0 L MCV 92.8 MCH 27.8 MCHC 30.0 L RDW Std Deviation 51.2 H RDW Coeff of Giles 14.9 H Plt Count 96 L MPV 12.9 H Immature Gran % (Auto) 0.900 Neut % (Auto) 61.8 Lymph % (Auto) 9.7 L [place] % (Auto) 27.2 H Eos % (Auto) 0.2 Baso % (Auto) 0.2 Absolute Neuts (auto) 10.1 H Absolute Lymphs (auto) 1.59 Nucleated RBC % 0 Differential Comment SCANNED Platelet Estimate MOD DEC Sodium 143 Potassium 4.7 Chloride 102 Carbon Dioxide 31.5 Anion Gap 10 BUN 19 Creatinine 0.72 Estim Creat Clear Calc 65.67 Est GFR (MDRD) Non-Af 89 BUN/Creatinine Ratio 26.2 H Glucose 89 Calcium 9.9 Troponin T High Sens 21 H D Troponin T Hi Sens 2 Hr 18 H NT pro BNP II 5153 H Urine Color Yellow Urine Clarity Clear Urine pH 5.0 Ur Specific Benedict 1.020 Urine Protein 30 H Urine Glucose (UA) Normal Urine Ketones Negative Urine Occult Blood 50 H Urine Nitrite Negative Urine Bilirubin Negative Urine Urobilinogen Normal Ur Leukocyte Esterase 100 H Urine RBC 0-5 SEEN Urine WBC 0-5 SEEN Ur Squamous Epith Cells 25-50 SEEN Ur Transition Epith Cell 0-5 SEEN Uric Acid Crystals 1+ Urine Bacteria 2+ Urine Mucus 0 SEEN Radiography Chest X-Ray - ED: 2 View, Read by ED Physician, Read by Radiologist and Right Infiltrate Diagnostic Testing: Clinical Impression(s) from Imaging Studies Chest X-Ray 08/24/24 19:39 IMPRESSION: Opacification of the right middle lobe, which may reflect pneumonitis/pneumonia. Stable severe cardiomegaly. Reading Location: [id number] and lateral chest x-ray was obtained. There are 2 views. On my independent interpretation, lung nickerson show a consolidation of the right middle lobe. There is cardiomegaly. Bony thorax is normal. Radiologist also interpreted thex-ray and agrees. EKG Initial EKG: Attestation: I personally reviewed and interpreted this EKG as follows: Interpretation: No Acute Injury Pattern and Atrial Fibrillation (113) Comments: EKG was obtained. On my independent interpretation, shows atrial fibrillation with a rate of 113. QRS interval was normal at 72 ms. QTc interval was normal at 430 ms. Ackerman was normal. There are no acute ST or T wave changes noted. Prior EKG tracings: available for review Prior: Unchanged (06/02/2024) Management Discussion w/another healthcare provider: Hospitalist Treatment and Re-Evaluation :: Patient was given an albuterol aerosol and 125 mg of Solu-Medrol by EMS. Patient was given a DuoNeb aerosol here. Patient's heart rate remained elevated. Patient was given a dose of Cardizem here. Patient's heart rate improved to 108. However, patient's heart rate started going back up. Patient was given a dose of metoprolol. Patient's heart rate improved to 100. However,heart rate started to increase again. Patient was started on Rocephin and Zithromax. Patient was advised of her findings. Patient was advised of the need for hospitalization. Patient is agreeable with this. Case was discussed with the hospitalist. She will admit the patient to her service. Patient understood and was agreeable with the plan. All questions were answered. Discharge Plan Triage Chief Complaint: Shortness of Breath ED Provider: John Paul Harrison Dx/Rx/DC Orders Clinical Impression: Pneumonia, Atrial fibrillation with RVR, Hypoxia Prescriptions: No Action folic acid 1 mg tablet 1 mg [...] 100 mg PO BID PRN (Reason: constipation) diltiazem HCl 60 mg Tablet 60 mg [...] 1 inh inhalation Q6H Qty: 6.7 0RF ipratropium-albuterol 0.5 mg-3 mg(2.5 mg base)/3 mL solution for nebulization 3 ml inhalation azithromycin 250 mg tablet PO metoprolol tartrate 100 mg tablet 200 mg PO lisinopril 20 mg tablet 20 mg PO DAILY ondansetron HCl 4 mg tablet 4 mg PO Q12H PRN PRN (Reason: nausea/vomiting) potassium chloride 20 mEq tablet,ER particles/crystals 20 meq PO DAILY calcitonin (salmon) 200 unit/actuation spray,non-aerosol 1 spray DAILY risedronate 35 mg tablet PO potassium chloride 10 mEq tablet,ER particles/crystals 10 meq PO BID ferrous sulfate 324 mg (65 mg iron) tablet,delayed release (DR/EC) 324 mg PO BID Dulera 100-5 mcg/actuation HFA aerosol inhaler inhalation Spiriva Respimat 2.5 mcg/actuation mist 2 puff INHALATION DAILY Primary Care Provider: Kory Ibarra Referrals: Kory Ibarra DO [Primary Care Provider] - Print Language: Niuean Disposition Disposition: Acute Care Hospital [facility] What to do if you have Problems For any increased pain, shortness of breath, bleeding, nausea or vomiting, chestpain, or any unexpected problems, contact your Primary Care Provider. Call [facility] ([phone]) or report to the closest Emergency Room. Call 911 if necessary. 08/24/24 0282 <Electronically signed by John Paul Harrison DO> Cosigner Signature (if applicable): CC: Dr. Kory Ibarra DO ~ Signed [facility] Work Phone: [phone] Radiology Diagnostic study note [facility] Imaging Services [address] [place] [address] Chest without Contrast MR#: [id number] Acct: [id number] Name: ALTA BAKER Rep #: [id number] : 1950 F 74 From: Priyanka Hoffman MD PCP: Dr. Kory Ibarra, Status: AD M IN Study:Chest without Contrast Date of Exam: 08/24/24 Exam# [id number] Ordering Dr: Loree Poe DO PROCEDURE: CHEST WITHOUT CONTRAST 08/24/2024 REASON FOR EXAM: HYPOXIA TECHNIQUE: Chest CT without contrast. Coronal and Sagittal reconstruction series were provided. One or more dose reduction techniques were used (e.g., Automated exposure control, adjustment of the mA and/or kV according to patient size, use of iterative reconstruction technique RADIATION DOSE SUMMARY: CTDlvol: 16.59 mGy DLP: 596 mGycm COMPARISON: Chest radiograph on 08/24/2014. FINDINGS: Moderate cardiomegaly. Mild pericardial effusion. Minimal bilateral pleural effusions. Passive atelectatic airspace disease of the lower lobes. Subsegmental atelectasis of the right middle lobe. Associated pneumonic consolidation is considered. Subsegmental atelectasis in the left lower lobe. Associated pneumonic consolidation is considered. Moderate coronary artery calcifications. Moderate interstitial pulmonary congestion. Enlarged main pulmonary artery, probably pulmonary arterial hypertension. Osteopenia. Severe subacute benign osteoporotic compression fracture of T12 vertebral body with mild associatedretropulsion and increased dorsal kyphosis. Diffuse spondylosis. Hepatomegaly. Diffuse irregularity of the hepatic contour, probably chronic. Normal unenhanced main pulmonary artery and right and left pulmonary arteries. Normal bilateral peripheral pulmonary arteries. Calcified atheromatous plaques of the thoracic aorta and visualized great vessels. There is no demonstrated aortic aneurysm. Normal mediastinum. Normal hilar regions. Normal visualized trachea and bronchi. CT/Chest without Contrast IMPRESSION: IMPRESSION: Coronary artery calcification (CAC) is is present Moderate cardiomegaly. Mild pericardial effusion. Minimal bilateral pleural effusions. Passive atelectatic airspace disease of the lower lobes. Subsegmental atelectasis of the right middle lobe. Associated pneumonic consolidation is considered. Subsegmental atelectasis in the left lower lobe. Associated pneumonic consolidation is considered. Moderate coronary artery calcifications. Moderate interstitial pulmonary congestion. Enlarged main pulmonary artery, probably pulmonary arterial hypertension. Osteopenia. Severe subacute benign osteoporotic compression fracture of T12 vertebral body with mild associatedretropulsion and increased dorsal kyphosis. Diffuse spondylosis. Hepatomegaly. Diffuse irregularity of the hepatic contour, probably chronic. Reading [facility] CC: Dr. Kory Ibarra DO; Dr. 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 Kory Ibarra DO Status:RE G ER Location: ED HPI History of Present Illness Chief Complaint: Shortness of Breath Informant: patient Onset/Context/Timing Onset: Weeks (1) Context: gradual Timing: Continuous Quality: Positive for Dyspnea on exertion and Orthopnea (Two-pillow) Worsened by: Exertion and Lying flat Relieved by: Albuterol Associated Symptoms cough; Negative for rhinorrhea, post nasal drip, ear pain, fever, sore throat, chills, sweats, clear sputum, white sputum, yellow sputum or green sputum Chest Pain: Positive for None Narrative Narrative: Patient presents with shortness of breath that has been getting worse over the past week. Patient states her breathing is worse with any exertion. Patient states she can only walk a few feet before she becomes short of breath and has to stop. Patient admits to a cough but denies any sputum production. Patient states that he did have some brown sputum earlier this week but this has resolved. Patient denies any fevers or chills. Patient denies any rhinorrhea or sore throat. Patient denies any chest pain. PE Risk Factors: Negative for Cancer, OCP + Smoking + > 35, Prior DVT or PE, Recent immobilization, Recent surgery or Recent travel [facility] Medical History Congestive heart failure (CHF) Anxiety Pulmonary embolism [...] 40 mg PO BID diuretic 07/14/16 History lisinopril 10 mg tablet 20 mg PO DAILY blood pressur e 01/24/16 07/14/16 History atorvastatin 10 mg tablet 10 mg PO [...] extended release 12 hr (Mucus Relief ER) folic acid 1 mg tablet 1 mg PO DAILY see PCP Unknown History sertraline 50 mg tablet 50 mg PO QHS mental health 0 05/25/24 Unknown History docusate sodium 100 mg capsule 100 mg PO BID PRN const ipation 06/03/24 Unknown History (Col-Rite) albuterol sulfate 90 mcg/actuation 1 inh inhalation Q6 H #6.7 grams 06/05/24 Unknown Rx aerosol inhaler diltiazem HCl 60 mg tablet 60 mg PO Q8 #120 tabs 06/05 Unknown Rx metoprolol tartrate 25 mg tablet 75 mg (3 x 25 mg) PO BID #180 tabs 06/05/24 Unknown Rx prednisone 20 mg tablet 40 mg (2 x 20 mg) PO DAILY # 10 tabs 06/05/24 Unknown Rx tiotropium bromide 18 mcg capsule 1 cap inhalation SHREE LY #30 06/05/24 Unknown Rx with inhalation device (Spiriva inhalations with HandiHaler) azithromycin 250 mg tablet mg PO 08/24/24 Unknown Hist ory calcitonin (salmon) 200 1 spray DAILY 08/24/24 Unkno wn History unit/actuation nasal spray ferrous sulfate 324 mg (65 mg 324 mg PO BID 08/24/24 U nknown History iron) tablet,delayed release ipratropium 0.5 mg-albuterol 3 mg 3 ml inhalation 08/13 05/09 Unknown History (2.5 mg base)/3 mL nebulization soln lisinopril 20 mg tablet 20 mg PO DAILY 08/24/24 Unkn own History metoprolol tartrate 100 mg tablet 200 mg PO 08/24/24 U nknown History mometasone-formoterol HFA 100 inhalation 08/24/24 Unkn own History mcg-5 mcg/actuation aerosol inhaler (Dulera) ondansetron HCl 4 mg tablet 4 mg PO Q12H PRN PRN 08/24 Unknown History nausea/vomiting potassium chloride 10 mEq 10 meq PO BID 08/24/24 Unkno wn History tablet,extended release(part/cryst) potassium chloride 20 mEq 20 meq PO DAILY 08/24/24 Unk nown History tablet,extended release(part/cryst) risedronate 35 mg tablet mg PO 08/24/24 Unknown Histo ry tiotropium bromide 2.5 2 puff inhalation DAILY 08/13 05/09 Unknown History mcg/actuation mist for inhalation (Spiriva Respimat) Allergy/AdvReac Type Severity Reaction Status Date / Time bee venom protein (honey Allergy Other Verified 08/24/24 18:34 bee) (bee sting) Opioids - Morphine Analogues Allergy Other Verified 08/24/24 18:34 (narcotics) Tetanus Vaccines and Toxoid Allergy Unknown Verified 08/24/24 18:34 (Tetanus Vaccines & Toxoid) Family History Grandmother Breast cancer Father CVA (cerebral vascular accident) Surgical History H/O oophorectomy History of appendectomy Social History household members: children and none housing: house number of children: 2 current occupational status: retired pets and animals: Yes (2 dogs/2 cats) Smoking Status: Never smoker alcohol intake: never substance use type: does not use ROS ROS ED Constitutional Constitutional ED: Denies chills or fever(s) Eyes Eyes: Denies blurry vision or change in vision ENT ENT ED: Denies rhinorrhea or sore throat Cardiovascular Cardiovascular: Denies chest pain or palpitations Respiratory/Chest Respiratory/Chest: Reports cough and dyspnea Gastrointestinal Gastrointestinal: Denies nausea or vomiting Genitourinary Genitourinary ED: Denies dysuria or hematuria Musculoskeletal Musculoskeletal: Denies back pain or neck pain Integumentary Denies abscess or rash Neurologic Neurologic: Denies headache(s) or weakness Allergic/Immunologic Allergic/Immunologic ED: Denies mouth swelling or urticaria EXAM Physical Exam Const Vital Signs: 08/24/24 18:34 08/24/24 18:38 08/24/24 18:45 Temperature 98.1 F 98.1 F Temperature Source Oral Oral Pulse Rate 128 H 128 H Respiratory Rate 26 H 26 H Respiratory Effort Normal Respiratory Depth Normal Respiratory Pattern Normal Blood Pressure 118/80 118/80 Blood Pressure Mean 92 92 Pulse Ox 100 100 Oxygen Delivery Method Nasal Cannula Nasal Cannula Nasal Cannula Oxygen Flow Rate (L/min) 4 4 3 08/24/24 19:38 08/24/24 20:00 08/24/24 20:04 Temperature 98.8 F 98.8 F Temperature Source Oral Oral Pulse Rate 121 H 121 H 126 H Respiratory Rate 23 H 23 H 23 H Respiratory Effort Respiratory Depth Respiratory Pattern Tachypnea Blood Pressure 121/75 H 121/75 H Blood Pressure Mean 90 90 Pulse Ox 100 100 Oxygen Delivery Method Nasal Cannula Nasal Cannula Oxygen Flow Rate (L/min) 4 4 08/24/24 20:59 08/24/24 22:01 Temperature 98.8 F 98.6 F Temperature Source Oral Pulse Rate 108 H 120 H Respiratory Rate 23 H 22 H Respiratory Effort Respiratory Depth Respiratory Pattern Blood Pressure 118/68 105/93 H Blood Pressure Mean 84 97 Pulse Ox 98 97 Oxygen Delivery Method Nasal Cannula Oxygen Flow Rate (L/min) 3 Positive well nourished and well developed General Appearance ED: well developed and NAD HEENT Reports moist mucous membranes Resp normal respiratory effort Auscultation: rales bilateral base and wheezes expiratory wheezes Cardio Rate: tachycardic Rhythm: abnormal rhythm irregularly irregular GI non-tender and non-distended Palpation: soft Extremity normal to inspection General Extremety ED: Negative for tenderness Neuro oriented x3, CN's II-XII intact bilaterally and no sensory deficits noted Fantasma Coma Scale: document GCS findings Spontaneous Obeys Commands Oriented 15 Sensorium / Orientation: alert Psych mental status grossly normal MDM MDM MDM Narrative Medical decision making narrative: Differential diagnosis includes COPD exacerbation, congestive heart failure, pneumonia, bronchitis,viral illness, electrolyte abnormality, cardiac arrhythmia, and cardiac ischemia. EKG will be obtained to assess for cardiac dysrhythmia and cardiac ischemia. Chest x-ray will be obtained to assess for pneumonia, bronchitis, and congestive heart failure. CBC will be obtained to assess for leukocytosis and anemia. Basic metabolic profile will be obtained toassess for electrolyte abnormality and renal function. BMP will be obtained to assess for congestive heart failure. High-sensitivity troponinwill be obtainedto assess for cardiac ischemia. 2-hour repeat high-sensitivity troponin will beobtained to assess for ongoing cardiac ischemia. Lab Data Attestation: I reviewed the patient's lab results. Lab results narrative: CBC was reviewed. There is a leukocytosis of 16.4. There is a mild anemia witha hemoglobin of 9.3 and hematocrit 31.0. Platelets were slightly low at 96. Basic metabolic profile was reviewed and was within normal limits. High-sensitivity troponin was reviewed and was slightly elevated at 21. 2-hourrepeat high- sensitivity troponin was reviewed and was improved at 18. BNP was reviewed and was elevated at 5153. Urinalysis was reviewed. Leukocyte esterasewas 100. There are 25-50 squamous epithelial cells. Labs: Laboratory Results - last 24 hr 08/24/24 08/24/24 08/24/24 18:40 19:38 20:40 WBC 16.4 H RBC 3.34 L Hgb 9.3 L Hct 31.0 L MCV 92.8 MCH 27.8 MCHC 30.0 L RDW Std Deviation 51.2 H RDW Coeff of Giles 14.9 H Plt Count 96 L MPV 12.9 H Immature Gran % (Auto) 0.900 Neut % (Auto) 61.8 Lymph % (Auto) 9.7 L [place] % (Auto) 27.2 H Eos % (Auto) 0.2 Baso % (Auto) 0.2 Absolute Neuts (auto) 10.1 H Absolute Lymphs (auto) 1.59 Nucleated RBC % 0 Differential Comment SCANNED Platelet Estimate MOD DEC Sodium 143 Potassium 4.7 Chloride 102 Carbon Dioxide 31.5 Anion Gap 10 BUN 19 Creatinine 0.72 Estim Creat Clear Calc 65.67 Est GFR (MDRD) Non-Af 89 BUN/Creatinine Ratio 26.2 H Glucose 89 Calcium 9.9 Troponin T High Sens 21 H D Troponin T Hi Sens 2 Hr 18 H NT pro BNP II 5153 H Urine Color Yellow Urine Clarity Clear Urine pH 5.0 Ur Specific Benedict 1.020 Urine Protein 30 H Urine Glucose (UA) Normal Urine Ketones Negative Urine Occult Blood 50 H Urine Nitrite Negative Urine Bilirubin Negative Urine Urobilinogen Normal Ur Leukocyte Esterase 100 H Urine RBC 0-5 SEEN Urine WBC 0-5 SEEN Ur Squamous Epith Cells 25-50 SEEN Ur Transition Epith Cell 0-5 SEEN Uric Acid Crystals 1+ Urine Bacteria 2+ Urine Mucus 0 SEEN Radiography Chest X-Ray - ED: 2 View, Read by ED Physician, Read by Radiologist and Right Infiltrate Diagnostic Testing: Clinical Impression(s) from Imaging Studies Chest X-Ray 08/24/24 19:39 IMPRESSION: Opacification of the right middle lobe, which may reflect pneumonitis/pneumonia. Stable severe cardiomegaly. Reading Location: [id number] and lateral chest x-ray was obtained. There are 2 views. On my independent interpretation, lung nickerson show a consolidation of the right middle lobe. There is cardiomegaly. Bony thorax is normal. Radiologist also interpreted thex-ray and agrees. EKG Initial EKG: Attestation: I personally reviewed and interpreted this EKG as follows: Interpretation: No Acute Injury Pattern and Atrial Fibrillation (113) Comments: EKG was obtained. On my independent interpretation, shows atrial fibrillation with a rateof 113. QRS interval was normal at 72 ms. QTc interval was normal at 430 ms. Ackerman was normal. Thereare no acute ST or T wave changes noted. Prior EKG tracings: available for review Prior: Unchanged (06/02/2024) Management Discussion w/another healthcare provider: Hospitalist Treatment and Re-Evaluation :: Patient was given an albuterol aerosol and 125 mg of Solu-Medrol by EMS. Patient was given a DuoNebaerosol here. Patient's heart rate remained elevated. Patient was given a dose of Cardizem here. Patient's heart rate improved to 108. However, patient's heart rate started going back up. Patient wasgiven a dose of metoprolol. Patient's heart rate improved to 100. However,heart rate started to increase again. Patient was started on Rocephin and Zithromax. Patient was advised of her findings. Patient was advised of the need for hospitalization. Patient is agreeable with this. Case was discussedwith the hospitalist. She will admit the patient to her service. Patient understood and was agreeable with the plan. All questions were answered. Discharge Plan Triage Chief Complaint: Shortness of Breath ED Provider: John Paul Harrison Dx/Rx/DC Orders Clinical Impression: Pneumonia, Atrial fibrillation with RVR, Hypoxia Prescriptions: No Action folic acid 1 mg tablet 1 mg [...] 100 mg PO BID PRN (Reason: constipation) diltiazem HCl 60 mg Tablet 60 mg [...] 1 inh inhalation Q6H Qty: 6.7 0RF ipratropium-albuterol 0.5 mg-3 mg(2.5 mg base)/3 mL solution for nebulization 3 ml inhalation azithromycin 250 mg tablet PO metoprolol tartrate 100 mg tablet 200 mg PO lisinopril 20 mg tablet 20 mg PO DAILY ondansetron HCl 4 mg tablet 4 mg PO Q12H PRN PRN (Reason: nausea/vomiting) potassium chloride 20 mEq tablet,ER particles/crystals 20 meq PO DAILY calcitonin (salmon) 200 unit/actuation spray,non-aerosol 1 spray DAILY risedronate 35 mg tablet PO potassium chloride 10 mEq tablet,ER particles/crystals 10 meq PO BID ferrous sulfate 324 mg (65 mg iron) tablet,delayed release (DR/EC) 324 mg PO BID Dulera 100-5 mcg/actuation HFA aerosol inhaler inhalation Spiriva Respimat 2.5 mcg/actuation mist 2 puff INHALATION DAILY Primary Care Provider: Kory Ibarra Referrals: Kory Ibarra DO [Primary Care Provider] - Print Language: Niuean Disposition Disposition: Acute Care Hospital [facility] What to do if you have Problems For any increased pain, shortness of breath, bleeding, nausea or vomiting, chestpain, or any unexpected problems, contact your Primary Care Provider. Call [facility] ([phone]) or report tothe closest Emergency Room. Call 911 if necessary. 08/24/24 8788 Cosigner Signature (if applicable): CC: Dr. Kory Ibarra DO ~ Signed [facility]06-12-2025 Radiology Diagnostic study note [facility] Imaging Services [address] [place], [place] [address] Chest PA and Lateral MR#: [id number] Acct: [id number] Name: ALTA BAKER Rep #: [id number] : 1950 F 74 From: Evelina Vergara MD PCP: Dr. Kory Ibarra DO Status: RE G ER Study:Chest PA and Lateral Date of Exam: 08/24/24 Exam# [id number] Ordering Dr: John Paul Harrison DO PROCEDURE: CHEST PA AND LATERAL 08/24/2024 REASON FOR EXAM: DYSPNEA TECHNIQUE: Frontal and lateral views of the chest. COMPARISON: Chest radiograph 06/02/2024. FINDINGS: Hardware: None. Heart: Stable severe cardiomegaly with pulmonary vascular congestion. Mediastinum: The mediastinal contour is stable and grossly obscured. Lungs: Opacification within the right middle lobe. No large pleural effusion orpneumothorax. Bones: Degenerative changes are identified within the thoracic spine. RAD/Chest PA and Lateral IMPRESSION: Opacification of the right middle lobe, which may reflect pneumonitis/pneumonia. Stable severe cardiomegaly. Reading Location: [facility] CC: Dr. John Paul Harrison, DO; Dr. Kory Ibarra, DO ~ [place] Worker: Signed [facility]06-12-2025 Telephone encounter Note* Telephone Encounter - Katia Yuli - 08/24/2024 8:59 AM EDT Message released to patient as written. Forgive me , but why does the patient need a hospital bed? Due to her sleep apnea or lumbar arthritis/pain? Patient's further questions if applicable: Patient states that they need this for their sleep apneaand breathing issues while they sleep. Patient states that they had a previous order for this but they cannot find their old paper. Please advise. Were all questions from office addressed or relayed to the patient from encounter: Yes [id number] Miscellaneous Notes* Telephone Encounter - Katia Hancassi - 08/24/2024 8:59 AM EDT Message released to patient as written. Forgive me , but why does the patient need a hospital bed? Due to her sleep apnea or lumbar arthritis/pain? Patient's further questions if applicable: Patient states that they need this for their sleep apneaand breathing issues while they sleep. Patient states that they had a previous order for this but they cannot find their old paper. Please advise. Were all questions from office addressed or relayed to the patient from encounter: Yes * Telephone Encounter - Kerri Morse MA - 08/24/2024 8:29 AM EDT Left message for patient to return call to the office. Please release information to the patient. * Telephone Encounter - Gay Cannon - 08/23/2024 2:03 PM EDT Name of caller: Rhiannon Contact phone number: [phone] Relationship to Patient: family member patient and daughter Provider: Dr. Ibarra Practice: [facility] Chief Complaint/Reason for Call: Rhiannon called in stating that the order for a hospital bed has been misplaced and Patient is needing a new order sent to [facility] along with chart notes explaining why Patient is needing this hospital bed. Rhiannon provided the fax number [phone]. Please advise. Best time of day caller can be reached: Any Patient advised that office/PCP has 24-48 business hours to return their call: No documented in this encounterSParkview [id number] Telephone encounter Note* Telephone Encounter - Kerri Morse MA - 08/24/2024 8:29 AM EDT Left message for patient to return call to the office. Please release information to the patient. [id number] Telephone encounter Note* Telephone Encounter - Gay Cannon - 08/23/2024 2:03 PM EDT Name of caller: Rhiannon Contact phone number: [phone] Relationship to Patient: family member patient and daughter Provider: Dr. Ibarra Practice: [facility] Chief Complaint/Reason for Call: Rhiannon called in stating that the order for a hospital bed has been misplaced and Patient is needing a new order sent to [facility] along with chart notes explaining why Patient is needing this hospital bed. Rhiannon provided the fax number [phone]. Please advise. Best time of day caller can be reached: Any Patient advised that office/PCP has 24-48 business hours to return their call: No [facility] [id number] Telephone encounter Note* Telephone Encounter - Qi Almanzar MA - 08/21/2024 5:27 PM EDT Called patient and left voicemail regarding rx sent to pharmacy. Please relay message to patient. [facility] [id number] Miscellaneous Notes* Telephone Encounter - Qi Almanzar MA - 08/21/2024 5:27 PM EDT Called patient and left voicemail regarding rx sent to pharmacy. Please relay message to patient. * Telephone Encounter - Mari Molina RN - 08/21/2024 2:01 PM EDT S: Patient spoke with [facility] nurse regarding request for antibiotic before [facility]. B: Seen in office on 08/15/24 for a visit. A: Reports she developed cough productive of yellow sputum and nasal congestion. She does have someshortness of breath with activity, but relates that [...] Colds with no complications Protocols used: Common [id number]-AS documented in this [facility]06-09-[address] Mccann pended for dx and doctor's signatureSAsc[facility] Telephone encounter Note* Telephone Encounter - Orin Lu - 08/21/2024 3:09 PM EDT Referral to Dr Mccann pended for dx and doctor's signature [facility] [id number] Miscellaneous Notes* Telephone Encounter - Orin Lu - 08/21/2024 3:09 PM EDT Referral to Dr Mccann pended for dx and doctor's signature * Telephone Encounter - Kerri Morse MA - 08/14/2024 10:24 AM EDT Placed call to patient. Unable to reach them by phone to discuss lab results. Left detailed messageto return call to discuss results. Please release information to patient * Telephone Encounter - Kerri Morse MA - 08/14/2024 10:24 AM EDT ----- Message from Laura Bradley sent at 08/14/2024 7:30 AM EDT ----- ----- Message ----- From: Kory Ibarra DO Sent: 08/13/2024 10:21 AM EDT To: [facility] Clinical [employer] Chief No obvious signs of multiple myeloma on this lab work. However I am unsure of the cause of her anemia. After she sees gastroenterology for consideration for upper lower endoscopy we will follow her CBCs in a few months. She might need to see grease cup filler. ----- Message ----- From: [place] Sent: 08/05/2024 1:27 PM EDT To: Kory Ibarra DO documented in this encounterSParkview [id number] Telephone encounter Note* Telephone Encounter - Mari Molina RN - 08/21/2024 2:01 PM EDT S: Patient spoke with [facility] nurse regarding request for antibiotic before [facility]. B: Seen in office on 08/15/24 for a visit. A: Reports she developed cough productive of yellow sputum and nasal congestion. She does have someshortness of breath with activity, but relates that [...] Colds with no complications Protocols used: Common [id number] [facility] [id number] History of Present illness Narrative* Kory Ibarra DO - 08/15/2024 10:00 AM EDT Images from the original note were not included. [facility] - [address] [facility] [id number] Visit type: Established Patient Reason for Visit: Follow-up (Med check) Assessment / Plan: Alta was seen today for follow-up. Diagnoses and all orders for this visit: Iron deficiency anemia, unspecified iron deficiency anemia type (Primary) Comments: Recurrent, unknown origin, await GI eval, possible hematology referral Essential hypertension Comments: Very stable, continue metoprolol, lisinopril and Lasix and diltiazem Anticoagulant long-term use Comments: Stable, continue Eliquis Hypercholesteremia 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) Permanent atrial fibrillation (HCC) Chronic obstructive pulmonary disease, unspecified COPD type (HCC) Comments: Stable, continue Dulera and Spiriva Depression, unspecified depression type Comments: Stable, continue Zoloft Other orders - atorvastatin (Lipitor) 10 MG tablet; TAKE ONE TABLET BY MOUTH DAILY AT 5PM - dilTIAZem (Cardizem) 60 MG immediate release tablet; Take 1 tablet (60 mg) by mouth every 8 hoursfor 270 doses. - ferrous sulfate 324 (65 Fe) MG EC tablet; One bid on empty stomach 30 min before meals or 2 hoursafter - folic acid (Folvite) 1 MG tablet; Take 1 tablet (1 mg) by mouth daily. - furosemide (Lasix) 40 MG tablet; Take 1 tablet (40 mg) by mouth 2 times daily. - potassium chloride CR (Klor-Con M10) 10 MEQ ER tablet; Take 1 tablet (10 mEq) by mouth 2 times daily. Do not crush or chew. - sertraline (Zoloft) 50 MG tablet; TAKE 1 TABLET BY MOUTH EVERY DAY IN EARLY EVENING - tiotropium (Spiriva Respimat) 2.5 MCG/ACT inhaler; Inhale 2 puffs daily. - metoprolol tartrate (Lopressor) 25 MG tablet; 3 tabs BID Subjective: Patient ID: Alta Baker is a 74 y.o. female. HPI overall checkup per patient atrial fib, hypertension, COPD and now with a new onset iron deficiency anemia. Cardiac and pulmonary gonzales she is improved. Feels well on present hypertensive meds. Nobradycardia hypertension. History of NICK but labs have been improved on last Lasix. Patient has chronic dyspnea due to combination of COPD, remote pulmonary emboli pulmonary artery hypertension and intermittent CHF. Presently compounded also by anemia. Of note she is been using a hospital bed at night for comfort and to prevent orthopnea that she has experienced when she lays supine. Using a hospital bed has allowed her to carefully get up out of bed and enable her to do more walking to improveher overall health Has developed a mixed anemia which appears to be probably iron deficient. Possible gammopathy. Willbe seeing the [facility] instrument mechanics supervisor in [place] in the near future Review of Systems no recent night sweats fevers or chills. No purulent phlegm or difficulty breathing. Of note is getting another echocardiogram in the near future. The last 2 study showed normal left ventricular ejection fraction. Moderate mitral regurg and severe tricuspid regurg. Compliant with inhalers. In regards to her anemia and some fatigue but feeling better on iron. No dysphagia or early satiety. No abdominal pain. Bowels are pretty regular. No melena or blood or hematuria. She is not a vegetarian. Her last colonoscopy was 7 years ago. Allergies[1] Current Medications[2] Problem List[3] Social History Tobacco Use Smoking status: Never Smokeless tobacco: Never Substance Use Topics Alcohol use: No Surgical History[4] Family History[5] Objective: BP 123/75 (BP Location: Right arm, Patient Position: Sitting, BP Cuff Size: Large adult) Pulse 74 Temp 36.6 C (97.9 F) (Temporal) Ht 4' 11 (1.499 m) Wt 220 lb (99.8 kg) SpO2 99% BMI 44.43 kg/m Physical Exam vital signs are stable. Pleasant and cooperative. No acute distress. Has good color with no pallor or cyanosis. Normal oropharynx. No JVD. No thyroid masses. Heart is slightly irregular. No new murmurs. Lungs are diminished in the bases but without egophony or wheezing. Abdomen obese n ontender without pain hepatosplenomegaly or masses. Extremities have chronic edema which is unchanged. Pulses are fair. No skin breakdowns. Reviewed recent hemoglobin which is up to 9.2 with normochromic and normocytic indices. Platelets are improving as well. Renal function stable. 04/2024 Echocardiogram showed preserved left ventricularejection fraction [1] Allergies Allergen Reactions Bee Venom Other Honey Bee Venom Morphine Other Oxycodone Other reaction(s): Mental Status Change Did not like the feeling Statins Other Muscle aches Tetanus Toxoids Swelling Other reaction(s): Unknown [2] Current Outpatient Medications: acetaminophen (Tylenol 8 Hour) [...] TIMES DAILY, Disp: 180 tablet, Rfl: 3 calcitonin, salmon, (Miacalcin) 200 UNIT/ACT nasal spray, Administer 1 spray into one nostril daily., Disp: , Rfl: Calcium Carbonate-Vitamin D (CALCIUM-VITAMIN D PO), Take by mouth., Disp: , Rfl: cephalexin (Keflex) 500 MG capsule, Take 500 mg by mouth 3 times a day., Disp: , Rfl: cetirizine (ZyrTEC) 10 MG tablet, Take 10 mg by mouth Nightly., Disp: , Rfl: Docusate Sodium (DSS) 100 MG capsule, 100 mg., Disp: , Rfl: Dulera 100-5 MCG/ACT inhaler, Please see attached for detailed directions, Disp: , Rfl: lisinopril 20 MG tablet, Take 1 tablet (20 mg) by mouth daily., Disp: 90 tablet, Rfl: 1 miconazole (Micotin) 2 % powder, Apply topically 2 times daily., Disp: , Rfl: nystatin (Mycostatin) 775325 UNIT/GM powder, Apply topically 3 times daily., Disp: 60 g, Rfl: 2 atorvastatin (Lipitor) 10 MG tablet, TAKE ONE TABLET BY MOUTH DAILY AT 5PM, Disp: 90 tablet, Rfl: 1 dilTIAZem (Cardizem) 60 MG immediate release tablet, Take 1 tablet (60 mg) by mouth every 8 hours for 270 doses., Disp: 270 tablet, Rfl: 1 ferrous sulfate 324 (65 Fe) MG EC tablet, One bid on empty stomach 30 min before meals or 2 hours after, Disp: 180 tablet, Rfl: 1 folic acid (Folvite) 1 MG tablet, Take 1 tablet (1 mg) by mouth daily., Disp: 90 tablet, Rfl: 1 furosemide (Lasix) 40 MG tablet, Take 1 tablet (40 mg) by mouth 2 times daily., Disp: 180 tablet, Rfl: 1 metoprolol tartrate (Lopressor) 25 MG tablet, 3 tabs BID, Disp: 540 tablet, Rfl: 1 potassium chloride CR (Klor-Con M10) 10 MEQ ER tablet, Take 1 tablet (10 mEq) by mouth 2 times daily. Do not crush or chew., Disp: 180 tablet, Rfl: 1 sertraline (Zoloft) 50 MG tablet, TAKE 1 TABLET BY MOUTH EVERY DAY IN EARLY EVENING, Disp: 90 tablet, Rfl: 1 tiotropium (Spiriva Respimat) 2.5 MCG/ACT inhaler, Inhale 2 puffs daily., Disp: 4 g, Rfl: 11 [3] Patient Active Problem List Diagnosis Hypercholesteremia Heart [...] tricuspid valve regurgitation Nonrheumatic aortic valve insufficiency [4] Past Surgical History: Procedure Laterality Date APPENDECTOMY 1970 BREAST BIOPSY Right 07/24/2021 CAPSULOTOMY, HAND 2006 MARTY/DCC 08/22 also and 03/29 as well. CAPSULOTOMY, HAND 2014 x8 CATARACT EXTRACTION Bilateral 2013 COLONOSCOPY 03/2017 divert ds - Turowski- due 2027 OVARIAN CYST REMOVAL Right 1984 TUBAL LIGATION 1979 [5] Family History Problem Relation Name Age of [...] No Known Problems Paternal Grandfather age 100 documented in this [facility]06-03-2025 History of Present illness Narrative* Kory Ibarra DO - 08/15/2024 10:00 AM EDT Images from the original note were not included. [facility] - [address] [facility] [id number] Visit type: Established Patient Reason for Visit: Follow-up (Med check) Assessment / Plan: Alta was seen today for follow-up. Diagnoses and all orders for this visit: Iron deficiency anemia, unspecified iron deficiency anemia type (Primary) Comments: Recurrent, unknown origin, await GI eval, possible hematology referral Essential hypertension Comments: Very stable, continue metoprolol, lisinopril and Lasix and diltiazem Anticoagulant long-term use Comments: Stable, continue Eliquis Hypercholesteremia 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) Permanent atrial fibrillation (HCC) Chronic obstructive pulmonary disease, unspecified COPD type (HCC) Comments: Stable, continue Dulera and Spiriva Depression, unspecified depression type Comments: Stable, continue Zoloft Other orders - atorvastatin (Lipitor) 10 MG tablet; TAKE ONE TABLET BY MOUTH DAILY AT 5PM - dilTIAZem (Cardizem) 60 MG immediate release tablet; Take 1 tablet (60 mg) by mouth every 8 hoursfor 270 doses. - ferrous sulfate 324 (65 Fe) MG EC tablet; One bid on empty stomach 30 min before meals or 2 hoursafter - folic acid (Folvite) 1 MG tablet; Take 1 tablet (1 mg) by mouth daily. - furosemide (Lasix) 40 MG tablet; Take 1 tablet (40 mg) by mouth 2 times daily. - potassium chloride CR (Klor-Con M10) 10 MEQ ER tablet; Take 1 tablet (10 mEq) by mouth 2 times daily. Do not crush or chew. - sertraline (Zoloft) 50 MG tablet; TAKE 1 TABLET BY MOUTH EVERY DAY IN EARLY EVENING - tiotropium (Spiriva Respimat) 2.5 MCG/ACT inhaler; Inhale 2 puffs daily. - metoprolol tartrate (Lopressor) 25 MG tablet; 3 tabs BID Subjective: Patient ID: Alta Baker is a 74 y.o. female. HPI overall checkup per patient atrial fibs, hypertension, COPD and now with a new onset iron deficiency anemia. Cardiac and pulmonary gonzales she is improved. Feels well on present hypertensive meds. No bradycardia hypertension. History of NICK but labs have been improved on last Lasix. Has developed a mixed anemia which appears to be probably iron deficient. Possible gammopathy. Willbe seeing the [facility] instrument mechanics supervisor in [place] in the near future Review of Systems no recent night sweats fevers or chills. No purulent phlegm or difficulty breathing. Of note is getting another echocardiogram in the near future. The last 2 study showed normal left ventricular ejection fraction. Moderate mitral regurg and severe tricuspid regurg. Compliant with inhalers. In regards to her anemia and some fatigue but feeling better on iron. No dysphagia or early satiety. No abdominal pain. Bowels are pretty regular. No melena or blood or hematuria. She is not a vegetarian. Her last colonoscopy was 7 years ago. Allergies[1] Current Medications[2] Problem List[3] Social History Tobacco Use Smoking status: Never Smokeless tobacco: Never Substance Use Topics Alcohol use: No Surgical History[4] Family History[5] Objective: BP 123/75 (BP Location: Right arm, Patient Position: Sitting, BP Cuff Size: Large adult) Pulse 74 Temp 36.6 C (97.9 F) (Temporal) Ht 4' 11 (1.499 m) Wt 220 lb (99.8 kg) SpO2 99% BMI 44.43 kg/m Physical Exam vital signs are stable. Pleasant and cooperative. No acute distress. Has good color with no pallor or cyanosis. Normal oropharynx. No JVD. No thyroid masses. Heart is slightly irregular. No new murmurs. Lungs are diminished in the bases but without egophony or wheezing. Abdomen obese n ontender without pain hepatosplenomegaly or masses. Extremities have chronic edema which is unchanged. Pulses are fair. No skin breakdowns. Reviewed recent hemoglobin which is up to 9.2 with normochromic and normocytic indices. Platelets are improving as well. Renal function stable. 04/2024 Echocardiogram showed preserved left ventricularejection fraction [1] Allergies Allergen Reactions Bee Venom Other Honey Bee Venom Morphine Other Oxycodone Other reaction(s): Mental Status Change Did not like the feeling Statins Other Muscle aches Tetanus Toxoids Swelling Other reaction(s): Unknown [2] Current Outpatient Medications: acetaminophen (Tylenol 8 Hour) [...] TIMES DAILY, Disp: 180 tablet, Rfl: 3 calcitonin, salmon, (Miacalcin) 200 UNIT/ACT nasal spray, Administer 1 spray into one nostril daily., Disp: , Rfl: Calcium Carbonate-Vitamin D (CALCIUM-VITAMIN D PO), Take by mouth., Disp: , Rfl: cephalexin (Keflex) 500 MG capsule, Take 500 mg by mouth 3 times a day., Disp: , Rfl: cetirizine (ZyrTEC) 10 MG tablet, Take 10 mg by mouth Nightly., Disp: , Rfl: Docusate Sodium (DSS) 100 MG capsule, 100 mg., Disp: , Rfl: Dulera 100-5 MCG/ACT inhaler, Please see attached for detailed directions, Disp: , Rfl: lisinopril 20 MG tablet, Take 1 tablet (20 mg) by mouth daily., Disp: 90 tablet, Rfl: 1 miconazole (Micotin) 2 % powder, Apply topically 2 times daily., Disp: , Rfl: nystatin (Mycostatin) 537902 UNIT/GM powder, Apply topically 3 times daily., Disp: 60 g, Rfl: 2 atorvastatin (Lipitor) 10 MG tablet, TAKE ONE TABLET BY MOUTH DAILY AT 5PM, Disp: 90 tablet, Rfl: 1 dilTIAZem (Cardizem) 60 MG immediate release tablet, Take 1 tablet (60 mg) by mouth every 8 hours for 270 doses., Disp: 270 tablet, Rfl: 1 ferrous sulfate 324 (65 Fe) MG EC tablet, One bid on empty stomach 30 min before meals or 2 hours after, Disp: 180 tablet, Rfl: 1 folic acid (Folvite) 1 MG tablet, Take 1 tablet (1 mg) by mouth daily., Disp: 90 tablet, Rfl: 1 furosemide (Lasix) 40 MG tablet, Take 1 tablet (40 mg) by mouth 2 times daily., Disp: 180 tablet, Rfl: 1 metoprolol tartrate (Lopressor) 25 MG tablet, 3 tabs BID, Disp: 540 tablet, Rfl: 1 potassium chloride CR (Klor-Con M10) 10 MEQ ER tablet, Take 1 tablet (10 mEq) by mouth 2 times daily. Do not crush or chew., Disp: 180 tablet, Rfl: 1 sertraline (Zoloft) 50 MG tablet, TAKE 1 TABLET BY MOUTH EVERY DAY IN EARLY EVENING, Disp: 90 tablet, Rfl: 1 tiotropium (Spiriva Respimat) 2.5 MCG/ACT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 Component Value C CHF Yes 1 H HTN Yes 1 A2 Age >= 75 No, (71 y.o.) 0 D DM No 0 S2 Prior Stroke/TIA No 0 V Vascular Disease No 0 A Age 65-74 Yes, (71 y.o.) 1 Sc Sex female 1 [id number] Score 4 2. Anticoagulant long-term use On eliquis 5 mg PO BID, CBC stable. No falls 3. Moderately severe TV regurgitation/pulmonology HTN RVSP is 60 mmHg Multifactorial - Obesity,CHRISTIANNE Recommend CPAP compliance for CHRISTIANNE. 4. 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 Now recovered LVEf, 66% (..24) No current heart failure symptoms . She [...] RTC in 1 month documented in this [facility]02-11-2025 Telephone encounter Note* Telephone Encounter - Angelina [...] address. If further questions, please call the [place] office back (hard to reach me at [place]). [facility] DaytonTragit98-30-9544 Miscellaneous Notes* Telephone Encounter - Angelina Julian [...] address. If further questions, please call the [place] office back (hard to reach me at [place]). * Telephone Encounter - Angelina Julian RN - 04/05/2024 2:09 PM EST Noted. * Telephone Encounter - Amara Langford - 04/05/2024 2:07 PM EST Called daughter, and left message that she is now scheduled to see Dr. Moon in [place] 04/27/24 at 9:00 am. * Telephone Encounter [...] and cancelled 04/06/[address] Moon in [place] because she will not be in the [...] Potassium should be reduced. documented in this [facility]01-30-2025 Telephone encounter Note* Telephone Encounter - Angelina Julian RN - 04/13/2024 12:05 PM EST Noted; thank you. [facility] DaytonXihuuu27-02-4547 Miscellaneous Notes* Telephone Encounter - Angelina Julian RN - 04/13/2024 12:05 PM EST Noted; thank you. * Telephone Encounter - Amara Langford - 04/13/2024 10:03 AM EST Daughter called and requested refill of Eliquis 5 mg to be sent to [facility]. I explained that prescription was sent to [facility] 02[facility]. Daughter thinks she was approved for assistance with [facility]. [facility] Marylou her approval in 2022, but with her prescription coverage there is no cost for Eliquis. She will send Eliquis #90 via [employer], and she should get it tomorrow. Called daughter and explained this. She is out of medication, discussed with nurse, and offered Sample of Eliquis 5 mg #14 lot# [id number] and expiration 04/09. She will picked edge sewing machine operator in [place] this pm. documented in this [facility]01-30-2025 Telephone encounter Note* Telephone Encounter - Amara Langford - 04/13/2024 10:03 AM EST Daughter called and requested refill of Eliquis 5 mg to be sent to [facility]. I explained that prescription was sent to [facility] 02/05. Daughter thinks she was approved for assistance with [facility]. [facility] spoke to Marylou her approval in 2022, but with her prescription coverage there is no cost for Eliquis. She will send Eliquis #90 via [employer], and she should get it tomorrow. Called daughter and explained this. She is out of medication, discussed with nurse, and offered Sample of Eliquis 5 mg #14 lot# [id number] and expiration 04/09. She will picked edge sewing machine operator in [place] this pm. [facility] [id number] Telephone encounter Note* Telephone Encounter - Laurie Burgess LPN - 04/06/2024 10:22 AM EST Placed call to patient to discuss provider direction. Message left on voicemail to return call. Patient can also call us back if any questions. [facility] [id number] Miscellaneous Notes* Telephone Encounter - Laurie Burgess LPN - 04/06/2024 10:22 AM EST Placed call to patient to discuss provider direction. Message left on voicemail to return call. Patient can also call us back if any questions. * Telephone Encounter - Laurie Burgess LPN - 04/04/2024 1:59 PM EST Called patient and no answer and voice mail is full, also sent patient a Zayo message. * Telephone Encounter - Laurie Burgess [...] to prevent further osteoporosis. documented in this [facility]01-22-2025 Telephone encounter Note* Telephone Encounter - Angelina Julian RN - 04/05/2024 2:09 PM EST Noted. [facility] DaytonYpfdoo89-32-9825 Telephone encounter Note* Telephone Encounter - Amara Langford - 04/05/2024 2:07 PM EST Called daughter, and left message that she is now scheduled to see Dr. Moon in [place] 04/27/24 at 9:00 am. [facility] DaytonYmdlym33-85-6670 Telephone encounter Note* Telephone Encounter - Angelina [...] opened. She was thankful for the call. [facility] DaytonLnftms29-33-3887 Telephone encounter Note* Telephone Encounter - Amara Langford - 04/05/2024 12:51 PM EST Called daughter, and cancelled 04/06/[address] Moon in [place] because she will not be in the [...] and if her Potassium should be reduced. [facility] DaytonDpqvec43-49-9964 Telephone encounter Note* Telephone Encounter - Laurie Burgess LPN - 04/04/2024 1:59 PM EST Called patient and no answer and voice mail is full, also sent patient a Fanplayrt message. [facility] DaytonGslihq60-80-9535 Miscellaneous Notes* Telephone Encounter - Laurie Burgess LPN - 04/04/2024 1:59 PM EST Called patient and no answer and voice mail is full, also sent patient a MyChart message. * Telephone Encounter - Laurie Burgess [...] to prevent further osteoporosis. documented in this encounterSParkview HealthFxlheb85-67-6143 Telephone encounter Note* Telephone Encounter - Laurie Brugess LPN - 04/04/2024 1:58 PM EST ----- [...] 800 mg daily to prevent further osteoporosis. [facility] DaytonPtydob75-11-9382 History of Present illness Narrative* Kory Ibarra DO - 04/03/2024 10:00 AM EST Images from the original note were not included. [facility] - [address] [facility] [address] Visit type: Established Patient Reason for Visit: Hospital Follow-up (02/14/24 seen at [facility] for Back pain and high white blood [...] - Digoxin level Lesion of adrenal gland (HCC) Comments: Chronic, no real change from 2018. [...] Lipitor Recurrent major depressive disorder, in remission ([facility]) Comments: Stay well on Zoloft Essential hypertension Comments: Improved on less meds. Continue metoprolol, lisinopril, and Lasix as directed Chronic obstructive pulmonary disease, unspecified COPD type ([facility]) Comments: Stable on albuterol nebulizer as needed [...] thoracic and lumbar spine. Was transferred to [facility] for therapy. Has been home a couple [...] BY MOUTH TWICE DAILY @ 9AM & 2HF340 tablet 1 miconazole (Micotin) 2 % powder Apply topically 2 times daily. nystatin (Mycostatin) 954562 UNIT/GM powder Apply topically 3 times daily. [...] nicely with her walker. documented in this [facility]12-30-2024 Telephone encounter Note* Telephone Encounter - Zoey Ada - 03/13/2024 2:22 PM EST Message released [...] relayed to the patient from encounter: Yes Cut[place]ownKlszqe47-90-6884 Miscellaneous Notes* Telephone Encounter - Zoey Caballero [...] 1:57 PM EST Name of caller: Rhiannon Hector Contact phone number: [phone] Relationship to Patient: Daughter Provider: Dr Fred BECKER Practice: [facility] location Chief Complaint/Reason for Call: 12/30/24 Pt Daughter calling to ask the office /Provider if her Mother could have a SOONER appt than 06.21. with Provider since being out of the Hospital she is asking for a call back to discuss Best time of day caller can be reached: PM Patient advised that office/PCP has 24-48 business hours to return their call: Yes documented in this [facility]12-30-2024 Telephone encounter Note* Telephone Encounter - Laurie [...] up appointment within the above time frame. [facility] Telephone encounter Note* Telephone Encounter - Becka Parisi - 03/13/2024 1:57 PM EST Name of caller: Rhiannon Burciaga Contact phone number: [phone] Relationship to Patient: Daughter Provider: Dr Fred BECKER Practice: [facility] location Chief Complaint/Reason for Call: 03/13/24 Pt Daughter calling to ask the office /Provider if her Mother could have a SOONER appt than 06.21.24 with Provider since being out of the Hospital she is asking for a call back to discuss Best time of day caller can be reached: PM Patient advised that office/PCP has 24-48 business hours to return their call: Yes [facility] DaytonPgawzh79-56-3637 [facility]12-10-2024 Hospital course Narrative* Curt Caputo MD - 02/22/2024 3:45 PM EST Images from the original note were not included. Hospitalist Discharge Summary Alta Baker : 1950 Admit date: 02/14/2024 Discharge date: 02/22/2024 Admitting Physician: Ana Meléndez MD Primary Care Physician: Kory Ibarra DO [...] Disposition: Patient discharged in stable condition to [facility] . Greater than 31 minutes spent discharging [...] Content: Thought content normal. LABS: Recent Labs 02/20/2413702/21/2412402/22/24451 NA 144 143 142 K 4.0 3.9 3.9 CL 100 100 99 CO2 37* 38* 36* BUN 16 13 11 CREATININE 0.69 0.64 0.64 GLUCOSE 118* 131* 111 CALCIUM 10.1* 9.5 9.5 Recent Labs 02/20/2413702/21/2412402/22/24 0452 WBC 12.9* 11.8* 10.1 RBC 3.81 [...] TWICE DAILY @ 9AM & 9PM nystatin 281028 UNIT/GM powder Commonly known as: Mycostatin Apply [...] Recommended Follow-up: Curt Graham MD [address] [facility] [address] Schedule an appointment as soon as possible for a visit in 1 month(s) Jose Metcalf MD [address] [place] [address], [address] [facility] [phone] Follow up in 2 week(s) Complexity of Follow up: [] Moderate Complexity: follow up within 7-14 calendar days (84097) [x] Severe Complexity: follow up within 7 calendar days (80512) Follow up Testing, Pending results or Referrals [...] frame. Signed: Curt Caputo MD Division of Hospitalist Medicine Inpatient Medical Services/[facility] 02/22/2024, 3:45 PM documented in this [facility]12-10-2024 Note* Care Coordination - ALBANIA Flood - 02/22/2024 3:09 PM EST Spoke with patients daughter Rhiannon to discuss dc planning and dc time. She will meet the patient at [facility]. [facility] DaytonGaqdnx93-92-5546 Note* Care Coordination - ALBANIA Flood - 02/22/2024 3:09 PM EST Spoke with patients karon Jurado to discuss dc planning and dc time. She will meet the patient at [facility]. [facility] DaytonIugnsf25-47-3425 Miscellaneous Notes* Care Coordination - ALBANIA Flood - 02/22/2024 3:09 PM EST Spoke with patients daughter Rhiannon to discuss dc planning and dc time. She will meet the patient at [facility]. * Care Coordination - ALBANIA Flood - 02/22/2024 3:02 PM EST Dc to [facility] this afternoon at 4:00. [facility] messaged the facility with picked edge sewing machine operator time. Provided the nurse with report number and will notify family. * Care Coordination - Unknown Case Management - 02/22/2024 3:02 PM EST Patient Choice Patient Name: ALTA BAKER Date of : 1950 All Providers Sent Referral Name: [facility]. Phone: [phone] Address: [address] [place] [address] Name: [facility] Phone: [phone] Address: [address] [place], [place] [id number] Name: [facility] Address: [address] [place] [address] Name: [employer] Phone: [phone] Address: [address] [place] [address] [address]: [facility] Phone: [phone] Address: [address] [place] [address] * Care Coordination - Carlotta Tiwari - 02/22/2024 2:42 PM EST Referral placed to SNF [facility] via [facility] per TCC request. Await review and response regarding ability to accept. TCC notified. * Care Coordination - Sangeetha Melgar RN - 02/22/2024 2:01 PM EST Care Management Progress Note Spoke with FIELD INSURANCE SALES MANAGER billing supervisor and she called insurance and verified auth approved for SNF placement. [facility] tasked to complete 7000 and send DC packet and MAR to [facility]. secure chatted to set up transport. Length of Stay (Days): 7 GMLOS: 3.5 * Care Coordination - Sangeetha Melgar RN - 02/22/2024 12:50 PM EST Care Management Progress Note This TCC called by pt MAYA Jurado and informed that she called [facility] insurance today to see what was the hold up with insurance auth and she told this TCC that [facility] said her SNF was approved yesterday 02/21/24 @ 4:13 pm. This TCC messaged FIELD INSURANCE SALES MANAGER billing supervisor earlier this am and she stated it was still pending. FIELD INSURANCE SALES MANAGER billing supervisor messaged now and updated with the infor that DTR just told me. Awaiting FIELD INSURANCE SALES MANAGER billing supervisor response. Awaiting confirmation of auth being [...] EST Care Management Progress Note Checked with [facility] billing supervisor to see if precert came back [...] Pt first choice of [facility] did accept pt. Informed them that pt is ready. FIELD INSURANCE SALES MANAGER tasked tostart precert auth. Auth may come back over the weekend. Will task Weekend TCC to follow for auth. Length of Stay (Days): 3 GMLOS: 3.5 * Care Coordination - Yue Solorzano - 02/18/2024 3:10 PM EST Ref[facility] placed [facility] [place] [facility] request. Await review and response regarding ability to accept. TCC notified. * Care Coordination - Sangeetha Melgar RN - 02/18/2024 3:01 PM EST Care Management Progress Note Received call from DTR which more SNF choices since her first 2 choices were unable to accept. New choices are: 1) [facility]; 2) [facility] and 3) [place]. FIELD INSURANCE SALES MANAGER tasked to send referrals. Barrier to Dc is awaiting SNF acceptance then will need precert auth. Length of Stay (Days): 3 GMLOS: 3.5 * Care Coordination - Sangeetha Melgar RN - 02/18/2024 12:03 PM EST Care Management Progress Note Received message in [facility] that pt' second choice [facility] SNF does not have any beds available. This TCC called DTBridget Jurado and informed her of this. DTR states she will call this TCC back with more choices. Awaiting for DTR to call me with TCC with choices. Length of Stay (Days): 3 GMLOS: 3.5 * Care Coordination - Yue Solorzano - 02/17/2024 3:28 PM EST Referral placed to SNF-[facility] via [facility] per TCC request. Await review and response regarding ability to accept. TCC notified. * Care Coordination - Sangeetha Melgar RN - 02/17/2024 3:24 PM EST Care Management Progress Note Received call from Allie from [facility] and told this TCC that pt's insurance is OON. Met with ptand daughter at bedside to update them and now they choose [facility] SNF. FIELD INSURANCE SALES MANAGER tasked to make referral. Awaiitng acceptance then will need precert auth. Will continue to follow Length of Stay (Days): 2 GMLOS: 3.5 * Care Coordination - Yue Solorzano - 02/17/2024 1:00 PM EST [facility]. Await review and response regarding ability to accept. TCC notified. * Care Coordination - Sangeetha Melgar RN - 02/17/2024 12:45 PM EST Care Management Progress Note Spoke with pt after therapy and now therapy recommending SNF at [facility]. Spoke with pt and she told [facility] that she would like referral made to [facility]. FIELD INSURANCE SALES MANAGER tasked to make referral Length of Stay (Days): 2 GMLOS: 3.5 * Care Coordination - Sangeetha Melgar RN - 02/17/2024 11:00 AM EST Care Managment Initial Assessment Date: 02/17/2024 Patient Name: Alta Baker : 1950 Patient Information Source of Information: Patient Cognition/Language: WFL - Within Functional Limits Permission given to speak with patient textile designs sales representative/caregiver as indicated: Yes Confirmation of Payer with patient/family: Yes Payer Name: [facility] Medicare [place]: No Confirmation of Primary Care Physician: Confirmed [...] Daily Living Prescription Coverage: Yes Pharmacy Used: [facility] Medication Management: Prescription pick-up Who assists with [...] Referral for: Additional Information: Pt admitted to admitted for Cellultis of abdominal wall and back pain due to compression fractures. Met with pt , introduced self and explained role. Met with pt shortly after being done with therpay and they recommend SNF placement at [facility]. Pt agreeable and chose [facility]. Will task FIELD INSURANCE SALES MANAGER to make referral. States she was independent [...] discharge instructions Outcome: Progressing Flowsheets (Taken 02/17/2024 5634) Patient/family/caregiver demonstrates understanding of disease process, treatment plan, medications, and discharge instructions: Complete learning assessment and assess knowledge base * Care Coordination - Sangeetha Melgar RN - 02/16/2024 4:14 PM EST Care Management Progress Note Chart reviewed. Pt admitted to 2E abdominal pain. Cellulitis. On po Keflex. PT/OT saw and [facility] PT/OT with [facility]. [facility] liasion following. DCP: Home with [facility] PT/OT Length of Stay (Days): 1 GMLOS: [...] service location. [facility] Liaison to discuss available agencies to accept case with patient upon receiving responses. AOC per pt [facility]. * Home Care - Caty Barrera RN - 02/16/2024 3:15 PM EST System Analyst following case for Discharge Needs. * Care [...] will continue to follow documented in this [facility]12-10-2024 Note* Care Coordination - ALBANIA Flood - 02/22/2024 3:02 PM EST Dc to [facility] this afternoon at 4:00. [facility] messaged the facility with picked edge sewing machine operator time. Provided the nurse with report number and will notify family. [facility] Dayton[facility]artae62-80-1420 Note* Care Coordination - ALBANIA Flood - 02/22/2024 3:02 PM EST Dc to [facility] this afternoon at 4:00. [facility] messaged the facility with picked edge sewing machine operator time. Provided the nurse with report number and will notify family. [facility] DaytonWuoejr34-14-9006 Note* Care Coordination - Unknown Case Management - 02/22/2024 3:02 PM EST Patient Choice Patient Name: ALTA BAKER Date of : 1950 All Providers Sent [facility] Phone: [phone] Address: [address] [place] [address] Name: [facility] Trans[facility] Care [facility] Phone: [phone] Address: [address] [place] [address] Name: [facility] Address: [address] [id number] Name: [employer] Phone: [phone] Address: [address] [place] [address] [address] [facility] Phone: [phone] Address: [address] [place] [address] [place] [address]Ctysuu77-92-5709 Note* Care Coordination - Unknown Case Management - 02/22/2024 3:02 PM EST Patient Choice Patient Name: ALTA BAKER Date of : 1950 All Providers Sent Referral [facility]: [facility] Phone: [phone] Address: [address] [place] [address] Name: [facility] SNF Phone: [phone] Address: [address] [place] [address] Name: [facility] Address: [address] [id number] Name: [employer] Phone: [phone] Address: [address] [place] [address]: [facility] Phone: [phone] Address: [address] [place] [address] [facility] DaytonWfspdb76-15-7512 Note* Care Coordination - Carlotta Tiwari - 02/22/2024 2:42 PM EST Referral placed to SNF - [facility] via [facility] per TCC request. Await review and response regarding ability to accept. TCC notified. [facility] Dayton[facility]yrpic64-41-3952 Note* Care Coordination - Carlotta Tiwari - 02/22/2024 2:42 PM EST Referral placed to SNF - [facility] per TCC request. Await review and response regarding ability to accept. TCC notified. [facility]12-10-2024 NoteReferral placed to [facility] via [facility] per TCC request. Await review and response regarding ability to accept. TCC notified. [facility]12-10-2024 Note* Care Coordination - Sangeetha Melgar RN - 02/22/2024 2:01 PM EST Care Management Progress Note Spoke with FIELD INSURANCE SALES MANAGER billing supervisor and she called insurance and verified auth approved for SNF placement. FIELD INSURANCE SALES MANAGER tasked to complete 7000 and send DC packet and MAR to [facility]. SW secure chatted to set up transport. Length of Stay (Days): 7 GMLOS: 3.5 [facility]12-10-2024 Note* Care Coordination - Sangeetha Melgar RN - 02/22/2024 2:01 PM EST Care Management Progress Note Spoke with FIELD INSURANCE SALES MANAGER billing supervisor and she called insurance and verified auth approved for SNF placement. FIELD INSURANCE SALES MANAGER tasked to complete 7000 and send DC packet and MAR to [facility]. SW secure chatted to set up transport. Length of Stay (Days): 7 GMLOS: 3.5 [facility]12-10-2024 History of Present illness Narrative* TORIBIO Linares/Manpreet - 02/22/2024 1:18 PM EST Images from the original note were not included. OCCUPATIONAL THERAPY [facility] Treatment Note Name/MRN: Alta Baker ([id number]) Date of : 1950 Age: 73 y.o. Room/Bed: B2-249/B2-249 B Visit #: 3 out of 6 visits Discharge Recommendation: Group Home Facility Prior Level of Function Prior Level [...] Daily Activity Raw Score: 16 ADL Inpatient [facility] G-Code Modifier: CK Goals Patient Stated Goal: [...] PATIENT NAME: Alta Baker DATE: 02/22/2024 PAGER: [phone] * Em Gaming APRN - MOVE COORDINATOR - 02/22/2024 10:08 AM EST Images from the original note were not included. [facility] Wound Care Progress Note Alta Baker AGE: [...] f/u per Dr. Ly Asthma Atrial fibrillation ([facility]) 2009 cardioversion 08/22 and 08/23 ( Malachi)-- [...] BY MOUTH TWICE DAILY @ 9AM & 5VC029 tablet 1 moxifloxacin (Avelox) 400 MG tablet Take 1 tablet (400 mg) by mouth daily for 10 days. 10 tablet 0 nystatin (Mycostatin) 443006 UNIT/GM powder Apply topically 3 times daily. [...] 02/21/2024 3:30 PM EST Hospitalist Progress Note 02/21/20246995170-7848: Please secure chat me for patient care issues. [phone]: Please secure chat [facility] night Hospitalist for any issues. Subjective: Admit Date: [...] Adult diet Regular; Low Sodium (2 gm) @LUOB7DFJMFY@ 24HR INTAKE/OUTPUT: Intake/Output Summary (Last 24 hours) [...] of leg ulcers LABS: CBC: Recent Labs 02/20/24 0138 02/21/24 0125 WBC 12.9* 11.8* RBC 3.81 3.49* HGB 10.5* 9.5* HCT 35.6 32.7* MCV 93.4 93.7 RDW 15.9* 15.6* PLT 110* 91* BMP: Recent Labs 02/20/24 0138 02/21/24 012 NA 144 143 K 4.0 3.9 CL 100 100 CO2 37* 38* BUN 16 13 CREATININE 0.69 0.64 GLUCOSE 118* 131* CALCIUM 10.1* 9.5 ANIONGAP 7 5 LIVER PROFILE: Recent Labs 02/20/24 0138 02/21/24 0125 AST 15 13 ALT 18 17 BILITOT [...] (HCC) 2016 PFTs 08/29- Pulm consult Roxannelanamber EUBANKSID-19 11/2023 w/ pneumococcal PNA Depression (emotion) [...] application and PT and OT assessments, awaiting long term facility placement, heart rate rapid possibly pain [...] controlled, wants to be discharged today, awaiting long term facility placement, abdominal wound and cellulitis improved, incidental finding on his CAT scan no open wound, blood pressure fluctuating, heart rate fluctuating O2 supplementation -am labs, replace lytes prn -increase activity -DVT prophylaxis: [] Lovenox [] Heparin [] SCDs [x] Encourage ambulation [x] Already on Anticoagulation - GI prophylaxis : Anticipated Discharge - Date -February 21 or - Location -long term facility - Pending the following -bed availability and insurance approval Total time spent (which include face to face and non face to face encounters) : 67 minutes Toxic drug monitoring/narrow therapeutic index drug monitoring : # Drug name : # Route administered : # Method of monitoring : Extended Emergency Contact Information Primary Emergency Contact: HectorRhiannon Address: [address] [place] [address] Mobile Relation: Child Nathan Gracia MD Division of Hospitalist Medicine [facility] PAGER: Epic chat * TORIBIO Patel - 02/21/2024 2:30 PM EST Images from the original note were not included. OCCUPATIONAL THERAPY [facility] Treatment Note Name/MRN: Alta Baker ([id number]) Date of : 1950 Age: 73 y.o. Room/Bed: B2249/B2249 B Visit #: 2 out of 6 visits Discharge Recommendation: Group Home Facility Prior Level of Function Prior Level [...] at 02/21/2024 3:28 PM EST * Sherin Molina PT - 02/21/2024 10:23 AM EST Images from the original note were not included. PHYSICAL THERAPY [facility] Treatment Note Name/MRN: Alta Baker ([id number]) Date of : 1950 Age: 73 y.o. Room/Bed: [facility] B Visit #: 3 out of 5 visits Discharge Recommendation: Group Home Facility Equipment Needed: No Prior Level of [...] PATIENT NAME: Alta Baker DATE: 02/21/2024 PAGER: [phone] * Juan M Burgess - 02/21/2024 8:08 AM EST Nutrition update completed. Chart reviewed. Patient continues as a level 1. * JUDI Simpson - 02/20/2024 1:22 PM EST Images from the original note were not included. OCCUPATIONAL THERAPY [facility] Name/MRN: Alta Baker ([id number]) Date: 02/20/2024 Chart reviewed completed, attempted treatment [...] PATIENT NAME: Alta Baker DATE: 02/20/2024 PAGER: [phone] * Nathan Gracia MD - 02/20/2024 12:42 PM EST Hospitalist Progress Note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 order anymore and would like this script sent to [facility]. documented in this encounterSParkview HealthMztmex26-84-7455 Telephone encounter Note* Telephone Encounter - Khurram [...] prior to picking up the medication: Yes [facility] DaytonZvunjc62-41-3963 Miscellaneous Notes* Telephone Encounter - Khurram Thomas [...] up the medication: Yes documented in this encounterSParkview HealthRouyke37-33-2148 Telephone encounter Note* Telephone Encounter - Pari Swiftkadeem - 05/07/2023 11:33 AM EST Medication name: [...] medication tab): 03/25/23 Updated/Validated preferred pharmacy: Yes [facility] Mail [facility] [address] Patient instructed to contact the pharmacy prior to picking up the medication: Yes [facility] DaytonSfwdtb19-77-1296 Miscellaneous Notes* Telephone Encounter - Pari G Mary - 05/07/2023 11:33 AM EST Medication name: [...] medication tab): 03/25/23 Updated/Validated preferred pharmacy: Yes [facility] [address] Patient instructed to contact the pharmacy prior to picking up the medication: Yes documented in this [facility]01-30-2024 Telephone encounter Note* Telephone Encounter - Katia Roldan - 04/13/2023 4:37 PM EST Name of caller: Alta Contact phone number: [phone] Relationship to Patient: patient Provider: Dr. Khalil [...] business hours to return their call: Yes [facility] DaytonJcattu90-42-8608 Miscellaneous Notes* Telephone Encounter - Katia Roldan - 04/13/2023 4:37 PM EST Name of caller: Alta Contact phone number: [phone] Relationship to Patient: patient Provider: Dr. Khalil [...] return their call: Yes documented in this encounterSParkview HealthEkbwlz82-46-4064 Telephone encounter Note* Telephone Encounter - Kerri Morse MA - 04/12/2023 8:57 AM EST Rx loaded [facility] DaytonSdlwft19-81-1957 Miscellaneous Notes* Telephone Encounter - eKrri Morse MA - 04/12/2023 8:57 AM EST [...] up the medication: No documented in this encounterSParkview HealthBwcsum08-46-6159 Telephone encounter Note* Telephone Encounter - Bruno [...] prior to picking up the medication: No [facility] DaytonSmplmj75-42-7105 Telephone encounter Note* Telephone Encounter - Una Rabago - 03/25/2023 2:55 PM EST Orders pended for doctor signature [facility] DaytonDuczdx62-40-5564 Miscellaneous Notes* Telephone Encounter - Una Rabago - 03/25/2023 2:55 PM EST Orders pended for doctor signature documented in this [facility]01-11-2024 History of Present illness Narrative* Kory Chayito Ibarra, - 03/25/2023 10:30 AM EST Images from the original note were not included. [facility] [address] [place] [address] [address] [facility] [address] Visit type: Established Patient Reason for [...] TIMES DAILY 180 tablet 3 nystatin (Mycostatin) 164479 UNIT/GM powder Indications: as directed under breasts [...] BY MOUTH TWICE DAILY @ 9AM & 3RM744 tablet 0 [DISCONTINUED] lisinopril 20 MG tablet [...] tibial pulses are adequate documented in this [facility]01-11-2024 Instructions* Patient Instructions* Kory Ibarra DO - 03/25/2023 10:30 AM EST Please acquire mammogram as discussed documented in this [facility]01-02-2024 Telephone encounter Note* Telephone Encounter - Blossom [...] medication tab): 11/24/2022 Updated/Validated preferred pharmacy: Yes [facility] Patient instructed to contact the pharmacy prior to picking up the medication: No [facility] DaytonWeokkz05-44-1512 Miscellaneous Notes* Telephone Encounter - Blossom Rayo [...] medication tab): 11/24/2022 Updated/Validated preferred pharmacy: Yes [facility] Patient instructed to contact the pharmacy prior to picking up the medication: No documented in this [facility]12-26-2023 Telephone encounter Note* Telephone Encounter - Selma Stone MA - 03/09/2023 11:05 AM EST Recent Visits Date Type Provider Dept 09/22/22 Office Visit DO Jason Wilson 03/24/22 Office Visit DO Jason Wilson Showing recent visits within past 365 days and meeting all other requirements Future Appointments Date Type Provider Dept 03/25/23 Appointment DO Jason Wilson [facility] Showing future appointments within next 90 [...] controlled medications from any other provider? N/A [facility]12-26-2023 Miscellaneous Notes* Telephone Encounter - Selma Stone MA - 03/09/2023 11:05 AM EST Recent Visits Date Type Provider Dept 09/22/22 Office Visit DO Jason Wilson 03/24/22 Office Visit DO Jason Wilson Showing recent visits within past 365 days and meeting all other requirements Future Appointments Date Type Provider Dept 03/25/23 Appointment DO Jason Wilson [facility] Showing future appointments within next 90 [...] any other provider? N/A documented in this [facility]11-21-2023 History of Present illness Narrative* Chelo Huitron APRN - MOVE COORDINATOR - 02/02/2023 11:15 AM EST Images from the original note were not included. [facility] [address] [facility] [address] [facility] [address] Dept: [phone] Dept Visit type: Established : 1950 Reason for Visit: 6 Month Follow-up Assessment and Plan 1. Permanent atrial fibrillation (HCC) Assessment & Plan: Permanent, nonvalvular. [id number] equals 4. Remains rate controlled today. -Continue [...] class II. EF 20 to 25% in 2016 and improved to 45%. Most recent echocardiogram from 2021 with a EF of 59%. [place] to be tachycardia mediated. No current heart [...] & 9PM 360 tablet 1 nystatin (Mycostatin) 518405 UNIT/GM powder Indications: as directed under breasts [...] Gallstone 05/2017 H/O colonoscopy 03/2017 neg per Turowski- due [...] 80, in 10/01 Coronary artery disease Sister Khole 66 CABG but age 89 No Known [...] tests: MARIUSZ Case CNP documented in this 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 EF 20 to 25% in 2017 and improved to 45%. Most recent echocardiogram from 2021 with a EF of 59%. [place] to be tachycardia mediated. No current heart failure symptoms and euvolemic on physical exam. -Continue metoprolol, lisinopril, Lasix [address] StreetYtfggp16-60-7840 Evaluation + Plan note* Assessment & Plan Note - MARIUSZ Case CNP - 02/02/2023 7:32 AM ESTAssociated Problem(s): CHRISTIANNE on CPAP Continue CPAP [place] [id number] Evaluation + Plan note* Assessment & Plan Note - MARIUSZ Case CNP - 02/02/2023 7:32 AM ESTAssociated Problem(s): Pulmonary HTN (HCC) Moderate tricuspid regurgitation with pulmonary hypertension felt to be multifactorial secondary toobesity and CHRISTIANNE. 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 EF 20 to 25% in 2017 and improved to 45%. Most recent echocardiogram from 2021 with a EF of 59%. [place] to be tachycardia mediated. No current heart [...] ESTAssociated Problem(s): Atrial fibrillation (HCC) Permanent, nonvalvular. [id number] equals 4. Remains rate controlled today. -Continue metoprolol, digoxin -Continue Eliquis 5 mg p.o. twice daily -CBC and BMP every 6 months, due March 2023 documented in this [facility]11-21-2023 Evaluation + Plan note* Assessment & Plan Note - MARIUSZ Case CNP - 02/02/2023 7:31 AM ESTAssociated Problem(s): Encounter for long-term (current) use of high-risk medication Remains on digoxin. Dig level from July 2022 stable at 1.1. -Yearly dig level, due July 2023 [facility]11-21-2023 Evaluation + Plan note* Assessment & Plan Note - MARIUSZ Case CNP - 02/02/2023 7:30 AM ESTAssociated Problem(s): Anticoagulant long-term use Remains on Eliquis with no abnormal bleeding. CBC and BMP September 2022 stable. -CBC and BMP every 6 months, due March 2023 and ordered today [facility]11-21-2023 Evaluation + Plan note* Assessment & Plan Note - MARIUSZ Case CNP - 02/02/2023 7:29 AM ESTAssociated Problem(s): Atrial fibrillation (HCC) Permanent, nonvalvular. [id number] equals 4. Remains rate controlled today. -Continue metoprolol, digoxin -Continue Eliquis 5 mg p.o. twice daily -CBC and BMP every 6 months, due March 2023 [facility]10-17-2023 History of Present illness Narrative* Alannah Reed [...] past surgical history on file. ALLERGIES Oxycodone, Ntvnbry-Yix-Ciz Reductase Inhibitors, and Tetanus And Diphtheria Toxoids [...] illness Alannah Reed APRN.FLORA documented in this encounterUniversity Hospitals Health System10-17-2023 Instructions* Patient Instructions* Alannah Reed APRN.CNP - [...] Discussed expected course of illness Alannah Reed APRN.MOVE COORDINATOR Adult Sinusitis Patient Education What is Sinusitis? Sinusitis [jpyq-egq-aura-tis] is inflammation of the sinuses or swelling [...] help. You may be instructed to take kesg-pvl-zjbkwoh medications for symptoms. including fever reducers acetaminophen or ibuprofen, nasal saline spray, cough and cold preparations and decongestants as prescribed by the physician, nurse practitioner or physician office manager executive assistant. Self-Care and Prevention: Rest Fluids for hydration Good hand washing Humidifier Avoid smoking and exposure to second hand smoke Avoid sick contacts documented in this encounterUniversity Hospitals Health System07-11-2023 History of Present illness Narrative* Kory Stratton Fred, - 09/22/2022 10:30 AM EDT Images from the original note were not included. [facility] [address] [facility] [address] Dept: [phone] Dept Chief Complaint: Alta Baker is an [...] TIMES DAILY 180 tablet 1 nystatin (Mycostatin) [id number] UNIT/GM powder Indications: as directed under breasts [...] loss and calorie restriction documented in this [facility]07-11-2023 Instructions* Patient Instructions* Kory Ibarra DO - [...] Recommendations: A preventive eye exam by an eyelet maker is recommended every 1-2 years to screen for glaucoma, cataracts, macular degeneration, and other eye disorders. A preventive dental visit is recommended every 6 months. Try to get at least 150 minutes of exercise per week or 10,000 steps per day on a pedometer. You need 1200-1500mg of calcium and 7640-9197 international units of vitamin D per day. [...] bicycle or a motorcycle documented in this encounterSParkview HealthAahxai27-76-5190 Telephone encounter Note* Telephone Encounter - Laurie Burgess LPN - 09/09/2022 7:51 AM EDT Patient has appointment 09/22/22 [facility]Vftbho16-52-0955 Miscellaneous Notes* Telephone Encounter - Laurie Burgess [...] Dispensed: 180 Refills: 0 documented in this encounterSParkview HealthQfamqh32-88-9537 Telephone encounter Note* Telephone Encounter - Kory Ibarra DO - 09/08/2022 5:24 PM EDT Refills completed, patient due for checkup in September [facility] DaytonJsncnm18-84-5461 Miscellaneous Notes* Telephone Encounter - Kory Ibarra [...] Dispensed: 180 Refills: 0 documented in this [facility]06-27-2023 Telephone encounter Note* Telephone Encounter - Estefani Thomas LPN - 09/08/2022 5:57 AM EDT Last appointment 03/24/2022 , Next appointment is 09/22/2022 Digoxin Last filled 06/16/22 Dispensed: 90 Refills: 0 Sertraline Last filled 06/16/22 Dispensed: 90 Refills: 0 Metoprolol Last filled 06/16/22 Dispensed: 90 Refills: 0 Lisinopril Last filled 06/16/22 Dispensed: 90 Refills: 0 Furosemide Last filled 06/16/22 Dispensed: 180 Refills: 0 [facility] DaytonFwyvsh06-59-0609 Telephone encounter Note* Telephone Encounter - Kerri Morse MA - 06/16/2022 3:52 PM EDT Rx loaded [facility] DaytonCfiixa75-92-9100 Miscellaneous Notes* Telephone Encounter - Kerri Morse MA - 06/16/2022 3:52 PM EDT Rx loaded documented in this encounterSParkview HealthYpuwbf30-52-2544 History of Present illness Narrative* Kory Ibarra DO - 03/24/2022 10:40 AM EST Images from the original note were not included. [address] [address] Visit type: Established Patient Reason for Visit: [...] tartrate (Lopressor) 100 MG tablet nystatin (Mycostatin) 259758 UNIT/GM powder Indications: as directed under breasts [...] failure with borderline preserved ejection fraction (CMS/HCC) ([facility]) Cough variant asthma Venous insufficiency Abnormal mammogram [...] Future - Lipid panel [facility] this [facility] Center[facility]* Diagnosis Chronic atrial fibrillation (HCC) Atrial [...] mitral valve regurgitation documented in this encounter [facility] Phone: Evaluation note* Diagnosis Permanent atrial fibrillation (HCC) Atrial fibrillation documented in this encounter [facility] Phone: Evaluation note* Diagnosis Onset Date Resolution Status Acute bronchospasm acute Acute hyperglycemia acute Acute respiratory failure with hypoxia acute Atrial fibrillation with RVR acute [facility] Work Phone: Evaluation note* Diagnosis CHRISTIANNE on CPAP Cough variant asthma RSV (respiratory syncytial virus infection) Respiratory syncytial virus (RSV) documented in this encounter [facility] note* Diagnosis CHRISTIANNE on CPAP RSV (respiratory syncytial virus infection) Respiratory syncytial virus (RSV) [facility]* Diagnosis CHRISTIANNE on CPAP RSV (respiratory syncytial virus infection) Respiratory syncytial virus (RSV) documented in this encounter [facility] note* Diagnosis Encounter for subsequent annual wellness [...] health care facility documented in this encounter [facility] [employer] note* Diagnosis Longstanding persistent atrial fibrillation (CMS/HCC) (HCC)- Primary documented in this encounter [facility]* Diagnosis Bacterial sinusitis- Primary Unspecified sinusitis (chronic) documented in this encounter [facility]Evaluation [facility]* Diagnosis Permanent atrial fibrillation (HCC)- Primary Atrial fibrillation Anticoagulant long-term use Encounter for long-term (current) use of anticoagulants Encounter for long-term (current) use of high-risk medication Encounter for long-term (current) use of other medications Pulmonary HTN (HCC) CHRISTIANNE on CPAP 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) documented in this encounter [facility] note* Diagnosis CHRISTIANNE on CPAP RSV (respiratory syncytial virus infection) Respiratory syncytial virus (RSV) [facility] encounter [facility]* Diagnosis Essential hypertension- Primary Unspecified essential hypertension Hypercholesteremia Pure hypercholesterolemia Anticoagulant long-term use Encounter for long-term (current) use of anticoagulants Major depressive disorder, recurrent, mild (HCC) Major depressive disorder, recurrent episode, mild Permanent atrial fibrillation (HCC) Atrial fibrillation Eyelid lesion, benign Unspecified disorder of eyelid Cough variant asthma Breast cancer screening by mammogram documented in this encounter [facility]* Diagnosis Eyelid lesion, benign Unspecified disorder of eyelid [facility]* Diagnosis CHRISTIANNE on CPAP RSV (respiratory syncytial virus infection) Respiratory syncytial virus (RSV) [facility]* Diagnosis Breast cancer screening by mammogram documented in this encounter [facility]* Diagnosis Palpitations documented in this encounter [facility] note* Diagnosis Atrial fibrillation, unspecified type (HCC)- Primary documented in this encounter [facility]* Diagnosis Atrial fibrillation, unspecified type (HCC)- Primary documented in this encounter [facility]* Diagnosis Leukocytosis, unspecified type- Primary documented in this encounter [facility]* Diagnosis Leukocytosis, unspecified type [facility]* Diagnosis Postmenopausal vaginal bleeding- Primary CHRISTIANNE on CPAP History of pneumonia Personal history of pneumonia (recurrent) Pulmonary emphysema, unspecified emphysema type (HCC) History of COVID-19 Anticoagulant long-term use Encounter for long-term (current) use of anticoagulants Permanent atrial fibrillation (HCC) Atrial fibrillation Thrombocytopenia (HCC) Unspecified thrombocytopenia Nasal bleeding Epistaxis documented in this encounter [facility] note* Diagnosis Postmenopausal vaginal bleeding documented in this encounter [facility] note* Diagnosis Permanent atrial fibrillation [...] Unspecified essential hypertension documented in this encounter [facility] note* Diagnosis Pain- Primary Generalized pain documented in this encounter [facility] note* Diagnosis Permanent atrial fibrillation (HCC)- [...] without sciatica- Primary documented in this encounter [facility] note* Diagnosis Permanent atrial fibrillation (HCC)- [...] failure type (HCC) documented in this encounter [facility] note* Diagnosis Permanent atrial fibrillation (HCC)- [...] of breath Bandemia [facility] Diagnosis Permanent atrial fibrillation (HCC)- [...] without sciatica Bandemia documented in [facility] encounter [facility]* Diagnosis Permanent atrial fibrillation [...] Shortness of breath [facility] Diagnosis Permanent atrial fibrillation (HCC)- [...] pulmonary heart disease documented in this encounter [facility]* Diagnosis Chronic pain of left knee- Primary CHRISTIANNE on CPAP Cough variant asthma Hyperglycemia Other abnormal glucose Essential hypertension Unspecified essential hypertension Longstanding persistent atrial fibrillation (CMS/HCC) (HCC) Hypercholesteremia Pure hypercholesterolemia documented in this encounter [facility]* Diagnosis Permanent atrial fibrillation [...] COPD type (HCC) [facility] Diagnosis Permanent atrial fibrillation (HCC)- Primary [...] Primary Atrial fibrillation [facility] Diagnosis Permanent atrial fibrillation (HCC)- Primary [...] venous (peripheral) insufficiency [facility] Diagnosis Permanent atrial fibrillation (HCC)- Primary [...] (HCC) Atrial fibrillation [facility]* Diagnosis Permanent atrial fibrillation (HCC)- Primary [...] vertebra, unspecified lumbar vertebral level, initial encounter ([facility]) Pulmonary HTN (HCC) Chronic obstructive pulmonary disease, unspecified COPD type ([facility]) Severe malnutrition (CMS/HCC) (HCC) Nutritional marasmus documented [facility]* Diagnosis Permanent atrial fibrillation (HCC)- Primary [...] Other follow-up examination documented in this encounter [facility] note* Diagnosis Permanent atrial fibrillation (HCC)- [...] unspecified depression type documented in this encounter [facility] note* Diagnosis Permanent atrial fibrillation (HCC)- [...] unspecified depression type [facility] Diagnosis Permanent atrial fibrillation (HCC)- Primary [...] protein electrophoresis- Primary [facility] Diagnosis Permanent atrial fibrillation (HCC)- Primary [...] protein electrophoresis- Primary [facility] Diagnosis Permanent atrial fibrillation (HCC)- Primary [...] anemia type- Primary documented in this encounter [facility]* Diagnosis Permanent atrial fibrillation [...] Other follow-up examination [facility] Diagnosis Permanent atrial fibrillation (HCC)- Primary [...] Other follow-up examination [facility] Diagnosis Permanent atrial fibrillation (HCC)- Primary [...] Unspecified essential hypertension documented in this encounter [facility] note* Diagnosis Permanent atrial fibrillation (HCC)- [...] deficiency anemia type documented [facility] Diagnosis Skin erythema- Primary Unspecified erythematous condition Right elbow pain Pain in joint, upper arm [facility] Diagnosis Permanent atrial fibrillation (HCC)- Primary [...] (HCC) Unspecified thrombocytopenia [facility] Diagnosis Permanent atrial fibrillation (HCC)- Primary [...] anemia, unspecified iron deficiency anemia type- Primary Essential hypertension Unspecified essential hypertension Anticoagulant long-term use Encounter for long-term (current) use of anticoagulants Hypercholesteremia Pure hypercholesterolemia 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) Permanent atrial fibrillation (HCC) Atrial fibrillation Chronic obstructive pulmonary disease, unspecified COPD type (HCC) Depression, unspecified depression type documented in this encounter [facility]* Diagnosis Permanent atrial fibrillation [...] deficiency anemia type [facility] Diagnosis Permanent atrial fibrillation (HCC)- Primary [...] anemia, unspecified iron deficiency anemia type- Primary Essential hypertension Unspecified essential hypertension Anticoagulant long-term use Encounter for long-term (current) use of anticoagulants Hypercholesteremia Pure hypercholesterolemia 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) Permanent atrial fibrillation (HCC) Atrial fibrillation Chronic obstructive pulmonary disease, unspecified COPD type (HCC) Depression, unspecified depression type documented in this encounter [facility] note* Diagnosis Permanent atrial fibrillation (HCC)- [...] CPAP Hospital discharge follow-up Other follow-up examination Encounter for screening mammogram for malignant neoplasm of breast documented in this encounter [facility] note* Diagnosis Permanent atrial fibrillation (HCC)- [...] CPAP Hospital discharge follow-up Other follow-up examination Abnormality of plasma protein, unspecified- Primary documented in this encounter [facility] note* Diagnosis Permanent atrial fibrillation (HCC)- [...] CPAP Hospital discharge follow-up Other follow-up examination Encounter for screening mammogram for malignant neoplasm of breast- Primary Encounter for screening mammogram for malignant neoplasm of breast documented in this encounter [facility] note* Diagnosis Permanent atrial fibrillation (HCC)- [...] CPAP Hospital discharge follow-up Other follow-up examination Leukocytosis, unspecified type- Primary Anemia, unspecified type Thrombocytopenia (HCC) Unspecified thrombocytopenia Adrenal mass, left (HCC) Unspecified disorder of adrenal glands documented in this encounter [facility] note* Diagnosis Permanent atrial fibrillation (HCC)- [...] CPAP Hospital discharge follow-up Other follow-up examination Leukocytosis, unspecified type- Primary Anemia, unspecified type Thrombocytopenia (HCC) Unspecified thrombocytopenia Adrenal mass, left (HCC) Unspecified disorder of adrenal glands documented in this encounter [facility] note* Diagnosis Permanent atrial fibrillation (HCC)- [...] CPAP Hospital discharge follow-up Other follow-up examination Leukocytosis, unspecified type Anemia, unspecified type Adrenal mass, left (HCC) Unspecified disorder of adrenal glands [facility] Diagnosis Permanent atrial fibrillation (HCC)- Primary [...] CPAP Hospital discharge follow-up Other follow-up examination Leukocytosis, unspecified type- Primary Anemia, unspecified type Thrombocytopenia (HCC) Unspecified thrombocytopenia Adrenal mass, left (HCC) Unspecified disorder of adrenal glands Leukocytosis, unspecified type Anemia, unspecified type Adrenal mass, left (HCC) Unspecified disorder of adrenal glands [facility]* Diagnosis Permanent atrial fibrillation (HCC)- [...] CPAP Hospital discharge follow-up Other follow-up examination Leukocytosis, unspecified type- Primary Anemia, unspecified type Thrombocytopenia (HCC) Unspecified thrombocytopenia Adrenal mass, left (HCC) Unspecified disorder of adrenal glands Pericardial effusion Unspecified disease of pericardium [facility] Diagnosis Permanent atrial fibrillation (HCC)- Primary [...] CPAP Hospital discharge follow-up Other follow-up examination Adrenal mass, left (HCC)- Primary Unspecified disorder of adrenal glands Thrombocytopenia (HCC) Unspecified thrombocytopenia [facility] Diagnosis Permanent atrial fibrillation (HCC)- Primary [...] discharge follow-up Other follow-up examination Pulmonary HTN (HCC) [facility]* Diagnosis Permanent atrial fibrillation (HCC)- Primary [...] CPAP Hospital discharge follow-up Other follow-up examination Chronic heart failure with mildly reduced ejection fraction (HFmrEF, 41-49%) (HCC)- Primary Congestive heart failure with right heart failure (HCC) Permanent atrial fibrillation (HCC) Atrial fibrillation Pulmonary HTN (HCC) Pericardial effusion Unspecified disease of pericardium [facility] Diagnosis Permanent atrial fibrillation (HCC)- Primary [...] CPAP Hospital discharge follow-up Other follow-up examination Pericardial effusion- Primary Unspecified disease of pericardium documented [facility]* Diagnosis Permanent atrial fibrillation (HCC)- Primary [...] CPAP Hospital discharge follow-up Other follow-up examination Chronic heart failure with mildly reduced ejection fraction (HFmrEF, 41-49%) (HCC)- Primary documented in this encounter [facility] note* Diagnosis Permanent atrial fibrillation (HCC)- [...] CPAP Hospital discharge follow-up Other follow-up examination Thrombocytopenia Unspecified thrombocytopenia Leukocytosis, unspecified type Anemia, unspecified type documented in this encounter [facility] note* Diagnosis Permanent atrial fibrillation (HCC)- [...] anemia, unspecified iron deficiency anemia type- Primary Essential hypertension Unspecified essential hypertension Anticoagulant long-term use Encounter for long-term (current) use of anticoagulants Hypercholesteremia Pure hypercholesterolemia 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) Permanent atrial fibrillation (HCC) Atrial fibrillation Chronic obstructive pulmonary disease, unspecified COPD type (HCC) Depression, unspecified depression type CHRISTIANNE on CPAP documented in this encounter [facility] note* Diagnosis Permanent atrial fibrillation (HCC)- [...] Heart failure with improved ejection fraction (HFimpEF) ([facility]) Nonrheumatic aortic valve insufficiency Nonrheumatic mitral valve regurgitation CHRISTIANNE on CPAP Hospital discharge follow-up Other follow-up examination Chronic heart failure with mildly reduced ejection fraction (HFmrEF, 41-49%) ([facility]) documented in this encounter [facility] note* Diagnosis Permanent atrial fibrillation (HCC)- [...] CPAP Hospital discharge follow-up Other follow-up examination Leukocytosis, unspecified type- Primary Thrombocytopenia Unspecified thrombocytopenia Anemia, unspecified type 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) documented in this encounter [facility] note* Diagnosis Permanent atrial fibrillation (HCC)- [...] CPAP Hospital discharge follow-up Other follow-up examination Leukocytosis, unspecified type- Primary Thrombocytopenia Unspecified thrombocytopenia Anemia, unspecified type 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) [facility] Consultation (Routine) - Pending Review Specialty Diagnoses / Procedures Referred By Kat valencia Referred To Contact Plastic Surgery Diagnoses Eyelid lesion, benign Procedures [place] OFFICE/OUTPATIENT NEW HIGH [facility] 60 MINUTES Kory Ibarra, [address] [place] [address] [facility] Plastic [address] [place] [address] [place] [address] Referral ID Status Reason Start Date Expiration Date Visits Requested Visits Authorized [id number] Pending Review Specialty Services Required 03/25/2023 03/24/2024 1 1 [facility] Consultation (Routine) - Pending Review Specialty Diagnoses / Procedures Referred By Contac t Referred To Contact Obstetrics and Gynecology Diagnoses Postmenopausal vaginal bleeding Procedures [place] OFFICE/OUTPATIENT NEW HIGH [facility] 60 MINUTES Kory Ibarra DO [address] [place] [address] [facility] Br Direct Marketing Intern [address] [place] [address] Referral ID Status Reason Start Date Expiration Date Visits Requested Visits Authorized [id number] Pending Review Specialty Services Required 12/21/2023 12/20/2024 1 1 [facility] Medications - Pending Review Specialty Diagnoses / Procedures Referred By Contac t Referred To Contact Kory Ibarra DO [address] [place] [address] Phone: tel: fax: Referral ID Status Reason Start Date Expiration Date V isits Requested Visits Authorized [id number] Pending Review 04/03/2024 09/30/2024 1 1 [facility]No reason for referral information availableWSamaritan [facility] Work Phone: Reason for visit Narrative* Imaging (Emergency) - Closed Specialty Diagnoses / Procedures Referred By Contac t Referred To Contact Radiology Diagnoses Acute midline low back pain without sciatica Bandemia Procedures CT lumbar spine wo IV contrast Curt Last PA-C [address] [place] [address] Phone: tel: fax: Referral ID Status Reason Start Date Expiration Date Visits Re quested Visits Authorized [id number] Closed 02/14/2024 02/13/2025 1 1 [facility] for visit Narrative* Diagnostic Procedure Only (Urgent) - Closed Specialty Diagnoses / Procedures Referred By Contac t Referred To Contact XR IMAGING Diagnoses Right elbow pain Procedures XR ELBOW GENERAL 2V AP/LAT RIGHT RADEX ELBOW 2 VIEWS Miranda Marion, MARIUSZ.MOVE COORDINATOR [address] [place] [address] Phone: tel: fax: [place] [address] Referral ID Status Reason Start Date Expiration Date V isits Requested Visits Authorized [id number] Closed Auto-Generate d Referral 08/09/2024 09/08/[address] [facility] for visit Narrative* Imaging (Routine) - Closed Specialty Diagnoses / Procedures Referred By Contac t Referred To Contact Radiology Diagnoses Leukocytosis, unspecified type Anemia, unspecified type Adrenal mass, left (HCC) Procedures CT chest abdomen pelvis with contrast Marion Mccann DO [address] [facility] [place] [address] Phone: tel: fax: Referral ID Status Reason Start Date Expiration Date Visits Re quested Visits Authorized [id number] Closed 11/09/2024 11/09/2025 1 1 [facility] for visit Narrative* Imaging (Routine) - Closed Specialty Diagnoses / Procedures Referred By Contac t Referred To Contact Cardiology Diagnoses Pulmonary HTN (HCC) Procedures Transthoracic echocardiogram (TTE) complete with contrast, bubble, strain, and 3D PRN AK ECHO TTHRC R-T 2D W/WOM-MODE COMPL SPEC&COLR D AK TTE W OR WO FABRICE GUSTAFSON,Benita Triplett MD [address] [facility] [address] [place] [address] Phone: tel: fax: Referral ID Status Reason Start Date Expiration Date Visits Re quested Visits Authorized [id number] Closed 07/31/2024 07/31/2025 1 1 [facility] for visit Narrative* Imaging (Routine) - Closed Specialty Diagnoses / Procedures Referred By Contac t Referred To Contact Radiology Diagnoses Thrombocytopenia Leukocytosis, unspecified type Anemia, unspecified type Procedures CT guided biopsy bone marrow Marion Mccann DO [address] [facility] [address] [place] [address] Phone: tel: fax: Referral ID Status Reason Start Date Expiration Date Visits Re quested Visits Authorized [id number] Closed 11/24/2024 11/24/2025 1 1 [facility] Summary Purpose Family History Relationship Condition Age at Onset Recorded Date/T debbie Unknown Family History?No pe rtinent history Unknown October 27, 2013 4:09pm Family History?No pe rtinent history Unknown July 14, 2016 7:24pm Relationship Condition Age at Onset Recorded Date/T debbie grandmother Malignant neoplasm of breast Unknown father Cerebrovascular accident (CVA) Unknown Advance Directives Documents on File Type Date Recorded Patient Rn New Grad Expl anation Advance Directives and Living Will Power of Best Worker Latest Code Status on File Code Status Date Activated Date Inactivated Comments Full Code 06/08/2017 12:50 AM 06/10/2017 7:14 PM Full Code 04/06/2017 7:21 AM 04/06/2017 12:40 PM Documents on File Type Date Recorded Patient Rn New Grad Expl anation ACP-Advance Directive ACP-Power of Best Worker Documents on File Type Date Recorded Patient Rn New Grad Expl anation ACP-Advance Directive ACP-Power of Best Worker Latest Code Status on File Code Status Date Activated Date Inactivated Comments Full Code 06/08/2017 12:50 AM 06/10/2017 7:14 PM Full Code 04/06/2017 7:21 AM 04/06/2017 12:40 PM Advance Directive Response Recorded Date/ Time Advance Directives No October 27, 2013 5:19pm Living Will No January 18 9:29pm Power of Best Worker No January 18, 2022 9:29pm Advance Directive Response Recorded Date/ Time Name of Medical Power of Best Worker jb burciaga January 19, 2022 12:21am Advance Directives No October 27, 2013 5:19pm Living Will Yes January 19 12:21am Power of Best Worker Yes January 19, 2022 12:21am Date Activated [...] Do you have a Healthcare Power of Best Worker? No June 02, 2024 11:47am Advance Directives No October 27, 2013 6:19pm Advance Directive Response Recorded Date/ Time Living Will No June 02, 2024 3:35pm Do you have a Healthcare Power of Best Worker? No June 02, 2024 3:35pm Advance Directives No October 27, 2013 6:19pm Advance Directive Response Recorded Date/ Time Living Will No June 02, 2024 3:35pm Do you have a Healthcare Power of Best Worker? No June 02, 2024 3:35pm Do you have a Healthcare Power of Best Worker? No August 24, 2024 6:39pm Advance Directives No October 27, 2013 6:19pm Advance Directive Response Recorded Date/ Time Living Will No June 02, 2024 3:35pm Do you have a Healthcare Power of Best Worker? No June 02, 2024 3:35pm Do you have a Healthcare Power of Best Worker? No August 25, 2024 12:42am Advance Directives No October 27, 2013 6:19pm [...] RIGHT BREAST BIOPSY Laura Yang, MARIUSZ - MOVE COORDINATOR [address] [place] [address] Referral ID Status Reason Start Date Expiration Date Visits Re quested Visits Authorized [id number] Open 07/30/2021 07/30/2022 1 1 Specialty Diagnoses / Procedures Referred By Cathleenac t Referred To Contact Cardiology Diagnoses Chronic atrial fibrillation (HCC) Nonrheumatic mitral valve regurgitation Procedures Echo 2D Doppler Color Benita Moon MD [address] [facility] [address] [place] [address] Referral ID Status Reason Start Date Expiration Date Visits Re quested Visits Authorized [id number] Closed 09/17/2021 10/17/2021 1 1 Specialty Diagnoses / Procedures Referred By Cathleenac t Referred To Contact Diagnoses CHRISTIANNE on CPAP Cough variant asthma Kory Ibarra, DO [address] [place] [address] Referral ID Status Reason Start Date Expiration Date Visits Re quested Visits Authorized [id number] Closed 1 1 Specialty Diagnoses / Procedures Referred By Kat t Referred To Contact Diagnoses CHRISTIANNE on CPAP Cough variant asthma Kory Ibarra, DO [address] [facility] [address] [place] [address] Referral ID Status Reason Start Date Expiration Date V isits Requested Visits Authorized [id number] Pending Review 12/21/2023 06/18/2024 1 1 Chief [...] COPD exacerbation June 02, 2024 1:3 0pm Chief Complaint Admit Date Shortness of breath May 25, 2024 3:1 9pm COPD VS CHF EXACERBATION June 02 1:30pm COPD VS CHF EXACERBATION June 03 1:24pm COPD VS CHF EXACERBATION June 04 1:52pm COPD VS CHF EXACERBATION June 05 9:19am ACUTE HYPOXIC RESPIRATORY FAILURE 2/2 RL L PNA August 24, 2024 11:03pm Reason for Visit Admit Date Acute non-recurrent maxillary sinusitis May 25, 2024 3:19pm Atrial fibrillation May 25, 2024 3:1 9pm Acute heart failure with preserved eject ion fraction (HFpEF) June 02, 2024 1:30pm Atrial fibrillation with RVR June 02, 2024 1:30pm Respiratory failure June 02, 2024 1:3 0pm COPD exacerbation June 02, 2024 1:3 0pm Atrial fibrillation with RVR August 24, 2024 11:03pm Hypoxia August 24, 2024 11:0 3pm Pneumonia August 24, 2024 11:0 3pm Chief Complaint Admit Date Shortness of breath May 25, 2024 3:1 9pm COPD VS CHF EXACERBATION June 02 1:30pm COPD VS CHF EXACERBATION June 03 1:24pm COPD VS CHF EXACERBATION June 04 1:52pm COPD VS CHF EXACERBATION June 05 9:19am ACUTE HYPOXIC RESPIRATORY FAILURE 2/2 RL L PNA August 24, 2024 11:03pm ACUTE HYPOXIC RESPIRATORY FAILURE 2/2 RL L PNA August 24, 2024 11:13pm ACUTE HYPOXIC RESPIRATORY FAILURE 2/2 RL L PNA August 25, 2024 7:30am ACUTE HYPOXIC RESPIRATORY FAILURE 2/2 RL L PNA August 26, 2024 11:57am ACUTE HYPOXIC RESPIRATORY FAILURE 2/2 RL L PNA August 27, 2024 2:56pm ACUTE HYPOXIC RESPIRATORY FAILURE 2/2 RL L PNA August 28, 2024 12:41pm Reason for Visit Admit Date Acute non-recurrent maxillary sinusitis May 25, 2024 3:19pm Atrial fibrillation May 25, 2024 3:1 9pm Atrial fibrillation with RVR June 02, 2024 1:30pm Respiratory failure June 02, 2024 1:3 0pm COPD exacerbation June 02, 2024 1:3 0pm Acute heart failure with preserved eject ion fraction (HFpEF) June 02, 2024 1:30pm Abnormal chest x-ray August 24, 2024 11: 03pm Atrial fibrillation with RVR August 24, 2024 11:03pm Hypoxia August 24, 2024 11:0 3pm Leukocytosis August 24, 2024 11:0 3pm Acute on chronic heart failu re with reduced ejection fraction (HFrEF, <= 40%) August 24, 2024 11:03pm Pneumonia August 24, 2024 11:0 3pm Additional Source Comments INFORMATION SOURCE (unrecogn ized section and content) DATE CREATED AUTHOR 09/02/2017 [facility] DATE CREATED AUTHOR AUTHOR'S ORGANIZ ATION 10/15/2021 [facility] DATE CREATED AUTHOR AUTHOR'S ORGANIZ ATION 12/13/2021 [facility] DATE CREATED AUTHOR AUTHOR'S ORGANIZ ATION 08/12/2024 [facility] DATE CREATED AUTHOR AUTHOR'S ORGANIZ ATION 09/07/2024 [facility] DATE CREATED AUTHOR AUTHOR'S ORGANIZ ATION [facility]/05/2025 [facility] Care Teams (unrecognized sec tion and content) Outreach Director Relationship Specialty Start Date End Date Fred Kory Stratton, DO [address] [place] [address] PCP - General 09/13/14 Outreach Director Relationship Specialty Start Date End Date Barbrarajwinder Kory Stratton, DO [address] [facility] [place] [address] PCP - General 09/13/14 Outreach Director Relationship Specialty Start Date End Date Tonybessy Kory Stratton, DO [address] [place] [address] PCP - General 09/13/14 Outreach Director Relationship Specialty Start Date End Date Barbrarajwinder Kory Stratton, DO [address] [place] [address] PCP - General 09/13/14 Outreach Director Relationship Specialty Start Date End Date Tonybessy Kory Stratton, DO [address] [place] [address] PCP - General 09/13/14 Outreach Director Relationship Specialty Start Date End Date Barbrarajwinder Kory Stratton, DO [address] [place] [address] PCP - General 08/13/18 Outreach Director Relationship Specialty Start Date End Date Fred Kory Stratton, DO [address] [place] [address] PCP - General 08/13/18 Outreach Director Relationship Specialty Start Date End Date Kory Ibarra Chayito, DO [address] [facility] [place] [address] PCP - General 08/13/18 Outreach Director Relationship Specialty Start Date End Date Kory Ibarra Chayito, DO [address] [place] [address] PCP - General 08/13/18 Outreach Director Relationship Specialty Start Date End Date Kory Ibarra, DO [address] [place] [address] PCP - General 08/13/18 Outreach Director Relationship Specialty Start Date End Date Kory Ibarra, DO [address] [place] [address] PCP - General 08/13/18 Outreach Director Relationship Specialty Start Date End Date Kory Ibarra, [address] [place] [address] PCP - General 08/13/18 Outreach Director Relationship Specialty Start Date End Date Kory Ibarra, DO [address] [place] [address] PCP - General 08/13/18 Outreach Director Relationship Specialty Start Date End Date Kory Ibarra [address] [place] [address] PCP - General Family Medicine 12/29/22 Outreach Director Relationship Specialty Start Date End Date Kory Ibarra, DO [address] [place] [address] PCP - General 08/13/18 Outreach Director Relationship Specialty Start Date End Date Kory Ibarra, DO [address] [place] [address] PCP - General 08/13/18 Outreach Director Relationship Specialty Start Date End Date Kory Ibarra, DO [address] [place] [address] PCP - General 08/13/18 Outreach Director Relationship Specialty Start Date End Date Kory Ibarra, DO [address] [place] [address] PCP - General 08/13/18 Outreach Director Relationship Specialty Start Date End Date Kory Ibarra, DO [address] [place] [address] PCP - General 08/13/18 Outreach Director Relationship Specialty Start Date End Date Kory Ibarra, DO [address] [place] [address] PCP - General 08/13/18 Outreach Director Relationship Specialty Start Date End Date Kory Ibarra, DO [address] [place] [address] PCP - General 08/13/18 Outreach Director Relationship Specialty Start Date End Date Kory Ibarra, DO [address] [place] [address] PCP - General 08/13/18 Outreach Director Relationship Specialty Start Date End Date Kory Ibarra, DO [address] [place] [address] PCP - General 08/13/18 Outreach Director Relationship Specialty Start Date End Date Kory Ibarra, DO [address] [place] [address] PCP - General 08/13/18 Outreach Director Relationship Specialty Start Date End Date Fred Kory Stratton, DO [address] [place] [address] PCP - General 08/13/18 Outreach Director Relationship Specialty Start Date End Date Fred Kory Stratton, DO [address] [place] [id number] PCP - General Family Medicine 12/29/22 Outreach Director Relationship Specialty Start Date End Date Fred Kory Stratton, DO [address] [place] [address] PCP - General 08/13/18 Outreach Director Relationship Specialty Start Date End Date Kory Ibarra Chayito, DO [address] [place] [address] PCP - General 08/13/18 Outreach Director Relationship Specialty Start Date End Date Fred Kory Stratton, DO [address] [place] [address] PCP - General 08/13/18 Outreach Director Relationship Specialty Start Date End Date Kory Ibarra Chayito, DO [address] [place] [address] PCP - General 08/13/18 Outreach Director Relationship Specialty Start Date End Date Kory Ibarra Chayito, DO [address] [place] [address] PCP - General 08/13/18 Outreach Director Relationship Specialty Start Date End Date Kory Ibarra, DO [address] [place] [address] PCP - General 08/13/18 Outreach Director Relationship Specialty Start Date End Date Kory Ibarra Chayito, DO [address] [place] [address] PCP - General 08/13/18 Outreach Director Relationship Specialty Start Date End Date Kory Ibarra, DO [address] [place] [address] PCP - General 08/13/18 Outreach Director Relationship Specialty Start Date End Date Kory Ibarra, DO [address] [place] [address] [id number] PCP - General Family Medicine 12/29/22 Outreach Director Relationship Specialty Start Date End Date Kory Ibarra, DO [address] [place] [address] PCP - General 08/13/18 Outreach Director Relationship Specialty Start Date End Date Kory Ibarra Chayito, DO [address] [place] [address] PCP - General 08/13/18 Outreach Director Relationship Specialty Start Date End Date Kory Ibarra, DO [address] [place] [address] PCP - General 08/13/18 Outreach Director Relationship Specialty Start Date End Date Kory Ibarra, DO [address] [place] [address] PCP - General 08/13/18 Outreach Director Relationship Specialty Start Date End Date Kory Ibarra DO [address] [place] [address] PCP - General 08/13/18 Outreach Director Relationship Specialty Start Date End Date Kory Ibarra, DO [address] [place] [address] PCP - General 08/13/18 Outreach Director Relationship Specialty Start Date End Date Kory Ibarra, DO [address] [place] [address] PCP - General 08/13/18 Outreach Director Relationship Specialty Start Date End Date Kory Ibarra, DO [address] [place] [address] PCP - General 08/13/18 Jamie Jimenez MD [address] [place] [address] Surgeon Urology 02/15/24 Outreach Director Relationship Specialty Start Date End Date Kory Ibarra, DO [address] [place] [address] PCP - General 08/13/18 Jamie Jimenez MD [address] [place], [place] [phone] Surgeon Urology 02/15/24 Outreach Director Relationship Specialty Start Date End Date Kory Ibarra DO [address] [place] [address] PCP - General 08/13/18 Jamie Jimenez MD [address] [address] Surgeon Urology 02/15/24 Outreach Director Relationship Specialty Start Date End Date Kory Ibarra, 223 [place] [id number] PCP - General 08/13/18 Outreach Director Relationship Specialty Start Date End Date Kory Ibarra, DO [address] [place], [place] [phone] PCP - General 08/13/18 Outreach Director Relationship Specialty Start Date End Date Kory Ibarra DO [address] [facility] [address] [place] [address] PCP - General 08/13/18 Jamie Jimenez MD [address] [place] [address] Surgeon Urology 02/15/24 Outreach Director Relationship Specialty Start Date End Date Kory Ibarra DO [address] [facility] [address] [place] [address] PCP - General 08/13/18 Jamie Jimenez MD [address] [place] [address] Surgeon Urology 02/15/24 Outreach Director Relationship Specialty Start Date End Date Kory Ibarra DO [address] [place] [address] PCP - General 08/13/18 Jamie Jimenez MD [address] [address] Surgeon Urology 02/15/24 Outreach Director Relationship Specialty Start Date End Date Kory Ibarra DO [address] [place] [address] PCP - General 08/13/18 Jamie Jimenez MD [address] [address] Surgeon Urology 02/15/24 Outreach Director Relationship Specialty Start Date End Date Kory Ibarra DO [address] [facility] [address] [place] [address] PCP - General 08/13/18 Jamie Jimenez MD [address] [address] Surgeon Urology 02/15/24 Outreach Director Relationship Specialty Start Date End Date Kory Ibarra DO [address] [facility] [address] [place] [address] PCP - General 08/13/18 Jamie Jimenez MD [address] [address] Surgeon Urology 02/15/24 Outreach Director Relationship Specialty Start Date End Date Kory Ibarra DO [address] [place] [address] PCP - General 08/13/18 Jamie Jimenez MD 201 [facility] 3 [place] [address] Surgeon Urology 02/15/24 Outreach Director Relationship Specialty Start Date End Date Kory Ibarra DO [address] [place] [address] PCP - General 08/13/18 Jamie Jimenez MD [address] [id number] Surgeon Urology 02/15/24 Outreach Director Relationship Specialty Start Date End Date Kory Ibarra DO [address] [facility] [address] [place] [address] PCP - General 08/13/18 Jamie Jimenez MD [address] [address] Surgeon Urology 02/15/24 Outreach Director Relationship Specialty Start Date End Date Kory Ibarra DO [address] [facility] [address] [place] [address] PCP - General 08/13/18 Jamie Jimenez MD [address] [address] Surgeon Urology 02/15/24 Outreach Director Relationship Specialty Start Date End Date Kory Ibarra DO [address] [facility] [address] [place] [address] PCP - General 08/13/18 Jamie Jimenez MD 201 [facility] [address] [place] [address] Surgeon Urology 02/15/24 Team Status: Active Member [...] Provider Active Sta rt: June 05, 2024 Outreach Director Relationship Specialty Start Date End Date Kory Ibarra DO [address] [facility] [address] [place] [address] PCP - General 08/13/18 Jamie Jimenez MD [address] [address] Surgeon Urology 02/15/24 Outreach Director Relationship Specialty Start Date End Date Kory Ibarra DO [address] [facility] [address] [place] [address] PCP - General 08/13/18 Jamie Jimenez MD [address] [address] Surgeon Urology 02/15/24 Outreach Director Relationship Specialty Start Date End Date Kory Ibarra DO [address] [facility] [address] [place] [address] PCP - General 08/13/18 Jamie Jimenez MD [address] [address] Surgeon Urology 02/15/24 Outreach Director Relationship Specialty Start Date End Date Kory Ibarra DO [address] [facility] [address] [place] [address] PCP - General 08/13/18 Jamie Jimenez MD [address] [address] Surgeon Urology 02/15/24 Outreach Director Relationship Specialty Start Date End Date Kory Ibarra DO [address] [facility] [address] [place] [address] PCP - General 08/13/18 Jamie Jimenez MD [address] [id number] Surgeon Urology 02/15/24 Outreach Director Relationship Specialty Start Date End Date Kory Ibarra DO [address] [facility] [address] [place] [address] PCP - General 08/13/18 Jamie Jimenez MD [address] [id number] Surgeon Urology 02/15/24 Outreach Director Relationship Specialty Start Date End Date Kory Ibarra DO [address] [facility] [address] [place] [address] PCP - General 08/13/18 Jamie Jimenez MD [address] [phone] Surgeon Urology 02/15/24 Outreach Director Relationship Specialty Start Date End Date Kory Ibarra DO [address] [facility] [address] [place] [address] PCP - General 08/13/18 Jamie Jimenez MD [address] [address] Surgeon Urology 02/15/24 Sindy Warren, BELLA Registered Nurse Plasterer Tender Manager 05/10/24 05/19/24 Outreach Director Relationship Specialty Start Date End Date Kory Ibarra DO [address] [facility] [address] [place] [address] PCP - General 08/13/18 Jamie Jimenez MD 201 [facility] 3 [place] [address] Surgeon Urology 02/15/24 Sindy Warren, RN Registered Nurse Plasterer Tender Manager 05/10/24 05/19/24 Outreach Director Relationship Specialty Start Date End Date Kory Ibarra DO [address] [facility] [address] [place] [address] PCP - General 08/13/18 Jamie Jimenez MD [address] [address] Surgeon Urology 02/15/24 Outreach Director Relationship Specialty Start Date End Date Kory Ibarra DO [address] [facility] [address] [place] [address] PCP - General 08/13/18 Jamie Jimenez MD [address] [address] Surgeon Urology 02/15/24 Outreach Director Relationship Specialty Start Date End Date Kory Ibarra DO [address] [place] [address] PCP - General Family Medicine 12/29/22 Outreach Director Relationship Specialty Start Date End Date Kory Ibarra DO [address] [place] [address] PCP - General Family Medicine 12/29/22 Outreach Director Relationship Specialty Start Date End Date Kory Ibarra DO [address] [place] [address] PCP - General 08/13/18 Jamie Jimenez MD [address] [facility] 3 [place] [address] Surgeon Urology 02/15/24 Outreach Director Relationship Specialty Start Date End Date Kory Ibarra DO [address] [facility] [address] [place] [address] PCP - General 08/13/18 Jamie Jimenez MD 201 [facility] 3 [place] [address] Surgeon Urology 02/15/24 Team Status: Active Member Role Status Dates Dr. Alyce Morel DO Emergency Provider Active S tart: June 03, 2024 Dr. Kory Ibarra DO Primary Care Provider Active Start: June 03, 2024 Dr. Wilbert Umanzor , Admit Provider Active Start: June 03, 2024 [...] Provider Active Sta rt: June 05, 2024 Team Status: Active Member Role Status Dates Dr. Kory Ibarra DO Primary Care Provider Active Start: August 24, 2024 Dr. John Paul Harrison DO Referring Provider Active Start: August 24, 2024 Dr. John Paul Harrison DO Emergency Provider Active Start: August 24, 2024 Dr. Jemima Poe DO Admit Provider Active Start : August 24, 2024 Dr. Jemima Poe DO Attending Provider Active S tart: August 24, 2024 Outreach Director Relationship Specialty Start Date End Date Kory Ibarra DO [address] [facility] [address] [place] [address] PCP - General 08/13/18 Jamie Jimenez MD [address] [id number] Surgeon Urology 02/15/24 Outreach Director Relationship Specialty Start Date End Date Kory Ibarra DO [address] [place] [address] [address] [place] [address] PCP - General 08/13/18 Jamie Jimenez MD [address] [address] Surgeon Urology 02/15/24 Outreach Director Relationship Specialty Start Date End Date Kory Ibarra DO [address] [facility] [address] [place] [address] PCP - General 08/13/18 Jamie Jimenez MD 201 [facility] 3 [place] [address] Surgeon Urology 02/15/24 Team Status: Inactive Member Role Status Dates Dr. Kory Ibarra , Primary Care Provider Active Start: August 24, 2024 End: August 28, 2024 Dr. John Paul Harrison , Referring Provider Active Start: August 24, 2024 End: August 28, 2024 Dr. John Paul Harrison , Emergency Provider Active Start: August 24, 2024 End: August 28, 2024 Dr. Jemima Poe , DO Admit Provider Active Start : August 24, 2024 End: August 28, 2024 Dr. Jemima Poe , DO Other Provider Active Start : August 24, 2024 End: August 28, 2024 Dr. Jimbo Ibarra MD Attending Provider Active Start: August 24, 2024 End: August 28, 2024 Dr. John Paul Will , Other Provider Active Star t: August 24, 2024 End: August 28, 2024 Team Status: Active Member Role Status Dates Dr. Kory Ibarra DO Primary Care Provider Active Start: August 24, 2024 Dr. John Paul Harrison DO Referring Provider Active Start: August 24, 2024 Dr. John Paul Harrison , Emergency Provider Active Start: August 24, 2024 Dr. Jemima Poe , Admit Provider Active Start : August 24, 2024 Dr. Jemima Poe DO Attending Provider Active S tart: August 24, 2024 Dr. Jemima Poe , DO Other Provider Active Start : August 24, 2024 Team Status: Active Member Role Status Dates Dr. Kory Ibarra DO Primary Care Provider Active Start: August 25, 2024 Dr. John Paul Harrison , DO Referring Provider Active Start: August 25, 2024 Dr. John Paul Harrison , DO Emergency Provider Active Start: August 25, 2024 Dr. Jemima Poe , DO Admit Provider Active Start : August 25, 2024 Dr. Jemima Poe , DO Other Provider Active Start : August 25, 2024 Dr. John Paul Will , DO Attending Provider Active Start: August 25, 2024 Dr. John Paul Will , DO Other Provider Active Star t: August 25, 2024 Team Status: Active Member Role Status Dates Dr. Kory Ibarra DO Primary Care Provider Active Start: August 26, 2024 Dr. John Paul Harrison , DO Referring Provider Active Start: August 26, 2024 Dr. John Paul Harrison , DO Emergency Provider Active Start: August 26, 2024 Dr. Jemima Poe , DO Admit Provider Active Start : August 26, 2024 Dr. Jemima Poe , DO Other Provider Active Start : August 26, 2024 Dr. Jimbo Ibarra MD Attending Provider Active Start: August 26, 2024 Dr. Jimbo Ibarra MD Other Provider Active Start: August 26, 2024 Dr. John Paul Will , DO Other Provider Active Star t: August 26, 2024 Team Status: Active Member Role Status Dates Dr. Kory Ibarra , DO Primary Care Provider Active Start: August 27, 2024 Dr. John Paul Harrison , DO Referring Provider Active Start: August 27, 2024 Dr. John Paul Harrison , DO Emergency Provider Active Start: August 27, 2024 Dr. Jemima Poe , DO Admit Provider Active Start : August 27, 2024 Dr. Jemima Poe , DO Other Provider Active Start : August 27, 2024 Dr. Jimbo Ibarra MD Attending Provider Active Start: August 27, 2024 Dr. Jimbo Ibarra MD Other Provider Active Start: August 27, 2024 Dr. John Paul Will DO Other Provider Active Star t: August 27, 2024 Team Status: Active Member Role Status Dates Dr. Kory Ibarra DO Primary Care Provider Active Start: August 28, 2024 Dr. John Paul Harrison , DO Referring Provider Active Start: August 28, 2024 Dr. John Paul Harrison , DO Emergency Provider Active Start: August 28, 2024 Dr. Jemima Poe , DO Admit Provider Active Start : August 28, 2024 Dr. Jemima Poe , DO Other Provider Active Start : August 28, 2024 Dr. Jimbo Ibarra MD Attending Provider Active Start: August 28, 2024 Dr. Jimbo Ibarra MD Other Provider Active Start: August 28, 2024 Dr. John Paul Will DO Other Provider Active Star t: August 28, 2024 Outreach Director Relationship Specialty Start Date End Date Fred Kory StrattonDO [address] [place] [address] PCP - General 08/13/18 Jamie Jimenez MD [address] [place], [place] [phone] Surgeon Urology 02/15/24 Outreach Director Relationship Specialty Start Date End Date Kory Ibarra DO [address] [place] [address] PCP - General 08/13/18 Jamie Jimenez MD [address] [place], [place] [id number] Surgeon Urology 02/15/24 Outreach Director Relationship Specialty Start Date End Date Kory Ibarra DO [address] [place] [address] PCP - General 08/13/18 Jamie Jimenez MD [address] [place], [place] [address] Surgeon Urology 02/15/24 Outreach Director Relationship Specialty Start Date End Date Kory Ibarra DO [address] [place] [address] PCP - General 08/13/18 Jamie Jimenez MD [address] [place] [address] Surgeon Urology 02/15/24 Outreach Director Relationship Specialty Start Date End Date Kory Ibarra DO [address] [place] [address] PCP - General 08/13/18 Jamie Jimenez MD [address] [facility] [address] Surgeon Urology 02/15/24 Marion Mccann DO [address] [place] [address] [place] [address] Consulting Physician Hematology and Oncology 11/06/24 Outreach Director Relationship Specialty Start Date End Date Kory Ibarra DO [address] [place] [address] PCP - General 08/13/18 Jamie Jimenez MD [address] [facility] [address] Surgeon Urology 02/15/24 Marion Mccann DO [address] [place] [address] [place] [address] Consulting Physician Hematology and Oncology 11/06/24 Outreach Director Relationship Specialty Start Date End Date Kory Ibarra DO [address] [place] [address] PCP - General 08/13/18 Jamie Jimenez MD [address] [place] [address] Surgeon Urology 02/15/24 Marion Mccann DO [address] [place] [address] [place] [address] Consulting Physician Hematology and Oncology 11/06/24 Outreach Director Relationship Specialty Start Date End Date Kory Ibarra DO [address] [place] [address] PCP - General 08/13/18 Jamie Jimenez MD [address] [address] Surgeon Urology 02/15/24 Marion Mccann DO [address] [place] [address] [place] [address] Consulting Physician Hematology and Oncology 11/06/24 Outreach Director Relationship Specialty Start Date End Date Kory Ibarra DO [address] [place] [address] PCP - General 08/13/18 Jamie Jimenez MD [address] [address] Surgeon Urology 02/15/24 Marion Mccann DO [address] [place] [address] [place] [address] Consulting Physician Hematology and Oncology 11/06/24 Outreach Director Relationship Specialty Start Date End Date Kory Ibarra DO [address] [place] [address] PCP - General 08/13/18 Jamie Jimenez MD [address] [place] [address] Surgeon Urology 02/15/24 Marion Mccann DO [address] [place] [address] [place], [place] [address] Consulting Physician Hematology and Oncology 11/06/24 Outreach Director Relationship Specialty Start Date End Date Kory Ibarra DO [address] [place] [address] PCP - General 08/13/18 Jamie Jimenez MD 201 [facility] [address] [place] [address] Surgeon Urology 02/15/24 Marion Mccann DO [address] [place] [address] [place] [address] Consulting Physician Hematology and Oncology 11/06/24 Outreach Director Relationship Specialty Start Date End Date Kory Ibarra DO [address] [place] [address] PCP - General 08/13/18 Jamie Jimenez MD [address] [place] [address] Surgeon Urology 02/15/24 Marion Mccann DO [address] [place] [address] [place] [address] Consulting Physician Hematology and Oncology 11/06/24 Outreach Director Relationship Specialty Start Date End Date Kory Ibarra DO [address] [place] [address] PCP - General 08/13/18 Jamie Jimenez MD [address] [place] [address] Surgeon Urology 02/15/24 Marion Mccann DO [address] [place] [address] [place] [address] Consulting Physician Hematology and Oncology 11/06/24 Outreach Director Relationship Specialty Start Date End Date Kory Ibarra DO [address] [place] [address] PCP - General 08/13/18 Jamie Jimenez MD [address] [place] [address] Surgeon Urology 02/15/24 Marion Mccann DO [address] [place] [address] [place] [address] Consulting Physician Hematology and Oncology 11/06/24 Outreach Director Relationship Specialty Start Date End Date Kory Ibarra DO [address] [place] [address] PCP - General 08/13/18 Jamie Jimenez MD [address] [place] [address] Surgeon Urology 02/15/24 Marion Mccann DO [address] [place] [address] [place] [address] Consulting Physician Hematology and Oncology 11/06/24 Outreach Director Relationship Specialty Start Date End Date Kory Ibarra DO [address] [place] [address] PCP - General 08/13/18 Jamie Jimenez MD 201 [facility] [address] [place] [address] Surgeon Urology 02/15/24 Marion Mccann DO [address] [place] [address] [place] [address] Consulting Physician Hematology and Oncology 11/06/24 Outreach Director Relationship Specialty Start Date End Date Kory Ibarra DO [address] [place] [address] PCP - General 08/13/18 Jamie Jimenez MD 201 [facility] [address] [facility] [address] Surgeon Urology 02/15/24 Marion Mccann DO [address] [place] [address] [place] [address] Consulting Physician Hematology and Oncology 11/06/24 Outreach Director Relationship Specialty Start Date End Date Kory Ibarra DO [address] [place] [address] PCP - General 08/13/18 Jamie Jimenez MD [address] [address] Surgeon Urology 02/15/24 Marion Mccann DO [address] [place] [address] [place] [address] Consulting Physician Hematology and Oncology 11/06/24 Outreach Director Relationship Specialty Start Date End Date Kory Ibarra DO [address] [place] [address] PCP - General 08/13/18 Jamie Jimenez MD [address] [address] Surgeon Urology 02/15/24 Marion Mccann DO [address] [place] [address] [place] [address] Consulting Physician Hematology and Oncology 11/06/24 Outreach Director Relationship Specialty Start Date End Date Kory Ibarra DO [address] [place] [place] [address] PCP - General 08/13/18 Jamie Jimenez MD [address] [address] Surgeon Urology 02/15/24 Marion Mccann DO [address] [place] [address] Consulting Physician Hematology and Oncology 11/06/24 Outreach Director Relationship Specialty Start Date End Date Kory Ibarra DO [address] [place] [phone] PCP - General 08/13/18 Jamie Jimenez MD 201 [facility] [address] [place] [address] Surgeon Urology 02/15/24 Marion Mccann DO [address] [place], [place] [id number] Consulting Physician Hematology and Oncology 11/06/24 Outreach Director Relationship Specialty Start Date End Date Kory Ibarra DO [address] [place] [phone] PCP - General 08/13/18 Jamie Jimenez MD [address] [address] Surgeon Urology 02/15/24 Marion Mccann DO [address] [place] [address] Consulting Physician Hematology and Oncology 11/06/24 Outreach Director Relationship Specialty Start Date End Date Kory Ibarra DO [address] [place] [phone] PCP - General 08/13/18 Jamie Jimenez MD 201 [facility] [address] [place] [address] Surgeon Urology 02/15/24 Marion Mccann DO [address] [place] [address] Consulting Physician Hematology and Oncology 11/06/24 Outreach Director Relationship Specialty Start Date End Date Fred Kory Stratton, DO [address] [place] [address] PCP - General 08/13/18 Jamie Jimenez MD [address] [place], [place] [id number] Surgeon Urology 02/15/24 Marion Mccann DO [address] [place], [place] [id number] Consulting Physician Hematology and Oncology 11/06/24 Outreach Director Relationship Specialty Start Date End Date Kory Ibarra Chayito DO [address] [place] [address] PCP - General 08/13/18 Jamie Jimenez MD [address] [place] [address] Surgeon Urology 02/15/24 Marion Mccann DO [address] [place] [address] Consulting Physician Hematology and Oncology 11/06/24 Goals (unrecognized section and content) Goals may [...] Vaccine Reason Onset Date Comments Referral 12/21/2023 [facility] Reason Comments 6 Month Follow-up Atrial Fibrillation Congestive Heart Failure Reason Onset Date Comments Back Pain 01/31/2024 Reason Comments Low Back Pain R low back pain x1 w [facility] Reason Comments Back Pain For approx 1 [...] back pain without sciatica Procedures .. Ana Meléndez MD [address] [place] [address] Phone: tel: fax: [facility] Cardiac Progressive Care Unit [address] [place] [address] Phone: tel: Referral ID Status Reason Start Date Expiration Date Visits Re quested Visits Authorized [id number] 1 1 Reason Comments Follow-up Check up Reason Onset Date Comments Appointment 03/13/2024 03/13/24 Pt Priya craft calling to ask the office /Provider if her Mother could have a SOONER appt than 06.21.24 with Provider since being out of the Hospital she is asking for a call back to discuss Reason Comments Hospital Follow-up 02/14/24 seen at [facility] for Back pain and high white blood [...] finding. Specialty Diagnoses / Procedures Referred By Contag t Referred To Contact Diagnoses Generalized weakness Procedures . Yanelis Higgins MD [address] [place] [address] Phone: tel: fax: [facility] [address] [place] [phone] Phone: tel: Referral ID Status Reason Start Date Expiration Date Visits Re quested Visits Authorized [id number] 1 1 Reason Comments Hospital Follow-up Atrial Fibrillation Congestive Heart Failure Reason Comments Hospital Follow-up Reason Onset Date Comments Results 06/23/2024 06.21.2024 Reason Onset Date Comments Referral 07/03/2024 Dr Yu Reason Onset Date Comments Med Refill 07/17/2024 Reason Comments Follow-up Atrial Fibrillation Reason Onset Date Comments Referral 08/01/2024 Reason Comments Pain (Elbow Pain) right redness and sw elling x 2 days Reason Onset Date Comments Med Refill 08/02/2024 Reason Onset Date Comments URI 08/21/2024 Reason Onset Date Comments Durable Medical Equipment 08/23/2024 Reason Comments Follow-up Med check Reason Onset Date Comments Results 08/13/2024 Reason Onset Date Comments Other 09/04/2024 Reason Onset Date Comments Appointment Request 09/11/2024 Reason Onset Date Comments Orders 09/21/2024 Portable Oxygen Machine Reason Onset Date Comments Appointment Request 08/28/2024 Reason Onset Date Comments Other 10/09/2024 [facility] Missed Appointment 10/09/2024 Echocardiogra m Reason Onset Date Comments Other 10/10/2024 Potential vascul ar peripheral disease Reason Onset Date Comments Other 10/20/2024 Home care update /missed visit Reason Comments Consult Reason Onset Date Comments Appointment Request 11/06/2024 R/S Reason Comments OP Infusion Reason Onset Date Comments Results 11/14/2024 Reason Onset Date Comments Med Refill 11/17/2024 Reason Comments Follow-up Lab review Reason Onset Date Comments Labs Only 11/23/2024 Reason Comments Follow-up Reason Onset Date Comments Orders 12/06/2024 Oxygent Request Reason Onset Date Comments Results 12/11/2024 Reason Onset Date Comments Orders 12/14/2024 Oxygen Reason Onset Date Comments Orders 12/27/2024 Cpap Machine Reason Onset Date Comments Med Refill 01/01/2025 Reason Comments Follow-up CT scan results Source Comments (unrecognize d section and content) In the event this informatio n is protected by the Federal Confidentiality of Alcohol and Drug Abuse Patient Records regulations: The Federal rules restrict any use of the information to criminally investigate or prosecute any alcohol or drug abuse patient.[facility] the event this information is protected by the Federal Confidentiality of Alcohol and Drug Abuse Patient Records regulations: The Federal rules restrict any use of the information to criminally investigate or prosecute any alcohol or drug abuse patient.[facility] the event this information is protected by the Federal Confidentiality of Alcohol and Drug Abuse Patient Records regulations: The Federal rules restrict any use of the information to criminally investigate or prosecute any alcohol or drug abuse patient.[facility] the event this information is protected by the Federal Confidentiality of Alcohol and Drug Abuse Patient Records regulations: The Federal rules restrict any use of the information to criminally investigate or prosecute any alcohol or drug abuse patient.[facility] System[facility] the event this information is protected by the Federal Confidentiality of Alcohol and Drug Abuse Patient Records regulations: The Federal rules restrict any use of the information to criminally investigate or prosecute any alcohol or drug abuse patient.[facility] Scheduled Active and Recently Administ ered Medications [...] On Wed02/04/24 at 2155, For 1 dose 2212 (Given - Provid er: Allison Drake RN) Scheduled Medication Order 02/09/2024 02/10/2024 02/11/2024 HYDROcodone-acetaminophen ([place]) 5-325 MG per tablet 1 tablet (COMPLETED) [...] Oral, Every 8 hours, First dose on Wed02/19/24 at 0830, Maximum dose of acetaminophen is 4000 mg from all sources in 24 hours. 0822 (Given - Provider: Diamond Weiss RN)1559 (Given - Provider: Diamond Weiss RN) 0043 (Given - Provider: Cristina Persaud RN - Comment: back pain)0842 (Given - Provider: Diamond Weiss RN)1726 (Given - Provider: Ashely Burgess RN) 0038 (Given - Provider: Allie Dubois RN)0831 (Given - Provider: Ashely Burgess RN)1619 (Given - Provider: Ashely Burgess RN) apixaban (Eliquis) tablet 5 mg 5 [...] Diamond Weiss RN)1558 (Given - Provider: Ashely Burgess RN)2002 (Given - Provider: Allie Dubois RN) 1013 (Given - Provider: Ashely Burgess RN)1449 (Given - Provider: Ashely Burgess RN) digoxin (Lanoxin) tablet 250 mcg 250 mcg, Oral, Daily, First dose (after last modification) on Wed02/19/24 at 0900 0823 (Given - Provider: Diamond Weiss RN) 0842 (Given - Provider: Diamond Weiss RN) 0831 (Given - Provider: Ashely Burgess RN) furosemide (Lasix) tablet 40 mg [...] RN) 0842 (Given - Provider: Diamond Weiss RN)155 (Given - Provider: Ashely Burgess RN) 0831 [...] 2002 (Given - Provider: Allie Dubois RN) 0831 (Given - Provider: Ashely Burgess, BELLA) metoprolol tartrate (Lopressor) tablet 75 mg (CANCELED) 75 mg, Oral, 2 times daily, First dose (after last modification) on Wed02/19/24 at 2100, Hold if HR <60 or SBP<90 0822 (Given - Provider: Diamond Weiss RN)203 (Given - Provider: Cristina Persaud RN) 0842 (Given - Provider: Diamond Weiss RN) miconazole (Micotin) 2 % powder Topical, 2 times daily, First dose on Wed02/16/24 at 2000, Sacrum/Abdominal folds: Fungal dermatitis -cleanse with soap and water, dry thoroughly, apply miconazole powder BID and PRN -keep areas dry with inner dry or ABD pads 0825 (Given - Provider: Diamond Weiss, RN)2049 (Given - Provider: Cristina Persaud RN) 0845 (Given - Provider: Diamond Weiss, BELLA)2217 (Given - Provider: Allie Dubois, RN) 1400 (Given - Provider: Ashely Burgess, BELLA) rOPINIRole (Requip) tablet 0.5 mg (COMPLETED) 0.5 mg, Oral, Once, On 02/20/24 at 0115, For 1 dose 013 (Given - Provider: Tracy Denson RN) sertraline (Zoloft) tablet 50 mg 50 mg, Oral, Nightly, First dose on Wed02/15/24 at 2100 2038 (Given - Provider: Cristina Persaud RN) 2002 (Given - Provider: Allie Dubois, RN) PRN Medication Order 02/20/2024 02/21/2024 02/22/2024 diphenhydrAMINE (BENADryl) capsule 50 mg(Linked Group 1) 50 mg, Oral, Nightly PRN, sleep, Starting on 02/20/24 at 0114 0131 (See Alternative - Provider: Tracy Denson RN) hydrALAZINE (Apresoline) injection 5 mg 5 mg, IntraVENous, Every 4 hours PRN, high blood pressure, sbp greater than 160, Starting on Wed02/16/24 at 0404 HYDROcodone-acetaminophen ([place]) 5-325 MG per tablet 1 tablet 1 tablet, Oral, Every 6 hours PRN, severe pain (7-10), moderate pain (4-6), Starting on 02/20/24 at 0519, Maximum dose of acetaminophen is 4000 mg from all sources in 24 hours. 0525 (Given - Provider: Tracy Denson RN)1559 (Given - Provider: Diamond Weiss, BELLA) Melatonin disintegrating tablet 10 mg(Linked Group 1) [...] pupils, RR < 8; notify primary team peoplesoft consultant if used ondansetron (Zofran) injection 4 mg(Linked [...] Selma Howell, BELLA)2006 (Given - Provider: Kya Morris, BELLA) 08 (Given - Provider: Smiley Wilson RN)2110 (Given - Provider: Brayden Quiñones RN) 08 (Given - Provider: Ying Francisco RN) atorvastatin (Lipitor) tablet 10 mg 10 mg, Oral, Nightly, First dose on Wed04/28/24 at 2100 2006 (Given - Provider: Kya Morris RN) 2110 (Given - Provider: Brayden Quiñones, BELLA) ceFAZolin (Ancef) 1,000 mg in sodium chloride [...] Rebolledo RN)1130 (New Bag - Provider: Selma Howell, BELLA)1200 (Stopped - Provider: Selma Howell RN)2006 (New Bag - Provider: Kya Morris RN)2036 (Stopped - Provider: Kya Morris RN) 0421 (New Bag - Provider: Kya Morris RN)0451 (Stopped - Provider: Kya Morris RN)1222 (New Bag - Provider: Porsha Andre RN)1252 (Stopped - Provider: Smiley Wilson, BELLA)210 (New Bag - Provider: Brayden Quiñones, BELLA)213 (Stopped - Provider: Brayden Quiñones RN) 0412 (New Bag - Provider: Brayden Quiñones RN)0442 (Stopped - Provider: Brayden Quiñones, BELLA) cetirizine (ZyrTEC) tablet 5 mg 5 mg, Oral, Nightly, First dose on Wed04/28/24 at 2100 2006 (Given - Provider: Kya Morris RN) 2110 (Given - Provider: Brayden Quiñones, BELLA) folic acid (Folvite) tablet 1 mg 1 mg, Oral, Daily, First dose on Wed05/04/24 at 0900 0947 (Given - Provider: Selma Howell RN) 0830 (Given - Provider: Smiley Wilson, BELLA) 0812 (Given - Provider: Ying Francisco RN) furosemide (Lasix) tablet 40 mg 40 mg, [...] Morris RN) 08 (Given - Provider: Smiley Wilson RN)2110 (Given - Provider: Brayden Quiñones, BELLA) 08 (Given - Provider: Ying Francisco, BELLA) miconazole (Micotin) 2 % powder Topical, 2 times daily, First dose on Wed04/28/24 at 0900 0949 (Given - Provider: Selma Howell, BELLA)2012 (Given - Provider: Kya Morris RN) 0834 (Given - Provider: Smiley Wilson, BELLA)2110 (Given - Provider: Brayden Quiñones, BELLA) 08 (Given - Provider: Ying Francisco, BELLA) mometasone-formoterol (Dulera 100) 100-5 MCG/ACT inhaler 2 puff 2 puff, Inhalation, 2 times daily, First dose on Wed05/05/24 at 2000, Rinse mouth with water after use to reduce aftertaste and incidence of candidiasis. Do not swallow. 0948 (Given - Provider: Selma Howell, BELLA)2006 (Given - Provider: Kya Morris, BELLA) 0830 (Given - Provider: Smiley Wilson, RN)211 (Given - Provider: Brayden Quiñones, RN) 0812 (Given - Provider: Ying Francisco, BELLA)1999 (Canceled Entry - Provider: Automatic Discharge Provider - Comment: Automatically canceled at discontinue of medication order) oseltamivir (Tamiflu) capsule 75 mg 75 mg, Oral, 2 times daily, First dose on Wed05/02/24 at 2100, For 5 days, Coverage: Influenza, Infection Site: Site Not Specified 47 (Given - Provider: Selma Howell RN)2006 (Given - Provider: Kya Morris RN) 08 (Given - Provider: Smiley Wilson, BELLA) pantoprazole (ProtoNix) EC tablet 40 mg 40 mg, Oral, Daily before breakfast, First dose on Wed05/06/24 at 0600, Do not crush, chew, or split. 0700 (Not Given - Provider: Selma Howell RN - Reason: Patient/family refused) 0507 (Given - Provider: Kya Morris, BELLA) 0534 (Given - Provider: Brayden Quiñones, BELLA) [...] 0550 (New Bag - Provider: Carmen Rebolledo, BELLA)0720 (Stopped - Provider: Carmen Rebolledo, BELLA) predniSONE [...] 3 doses 0947 (Given - Provider: Selma Howell, RN) 0829 (Given - Provider: Smiley Wilson, RN) 0812 (Given - Provider: Ying Francisco, BELLA) sertraline (Zoloft) tablet 50 mg 50 mg, Oral, Daily, First dose on Wed04/28/24 at 0900 0947 (Given - Provider: Selma Howell, RN) 0830 (Given - Provider: Smiley Wilson, BELLA) 0812 (Given - Provider: Ying Francisco, BELLA) tiotropium (Spiriva Respimat) 2.5 MCG/ACT inhaler 2 puff 2 puff, Inhalation, Daily, First dose on Wed05/03/24 at 1115, Instruct to hold breath for 10 seconds after each inhalation. Before first use, prime inhaler by actuating until aerosal cloud is seen, then actuating 3 more times. 0949 (Given - Provider: Selma Howell, RN) 0830 (Given - Provider: Smiley Wilson, [...] BE BASED ON THE PRIMARY CLINICAL RECORDS. [facility]. provides no warranty or guarantee of the accuracy or completeness of information in this document.
[2025-02-12 22:51] LABS: Troponin T High Sens 2 HR 18 ng/L (<=14)
--- NOTE | 2025-02-12 22:51 | PCM.HP.STD ---
[facility] - General General Date of Admission: 02/12/25 Date of Service: 02/12/25 Chief Complaint: Shortness of breath HPI Narrative GUNNER BAKER, is a 74 F who presents to the emergency room with chief complaint of shortness of breath. Onset of symptoms began yesterday with increased sputum production. Patient has significant past medical history of congestive heart failure, chronic obstructive pulmonary disease, atrial fibrillation on Eliquis and Cardizem. Patient lives with her daughter and 2 kids who have been sick with recent respiratory illnesses. Patient has productive yellow sputum and shortness of breath at rest and worse with exertion. Patient reports being compliant with medication. Patient denies chest pain, abdominal pain nausea vomiting or diarrhea. Patient has oxygen as needed at home and started using it last night when she became short of breath with no relief of her symptoms. Laboratory studies reveal white blood cell count 9.0, hemoglobin 10.5, hematocrit 33.5, platelets 57, sodium 143, potassium 3.9, chloride 98, bicarb 29.1, BUN 18, creatinine 1.07, glucose 108, INR subtherapeutic at 1.6, troponin 22, T. bili 2.4, AST 21 ALT 10. Chest x-ray reveals right lower lobe pneumonia with pulmonary edema and large cardiomegaly. Patient will be admitted to progressive care unit treated for pneumonia, congestive heart failure and atrial fibrillation with rapid ventricular response. Patient expressed wishes to be DNR Comfort Care arrest and does not want heroic measures. [facility] Medical History (Updated 02/12/25 @ 22:[address] Manjinder Rosado MD) Acute on chronic heart failure with reduced ejection fraction (HFrEF, <= 40%) Thrombocytopenia Anemia Congestive heart failure (CHF) Anxiety Pulmonary embolism COPD (chronic obstructive pulmonary disease) Non-smoker CPAP (continuous positive airway pressure) dependence On home oxygen therapy Atrial fibrillation Hypertension Asthma Depression Atrial fibrillation with RVR Anticoagulant long-term use Acute respiratory failure with hypoxia Obstructive sleep apnea Congestive heart failure (CHF) Dyslipidemia HTN (hypertension) Paroxysmal atrial fibrillation Morbid obesity with body mass index of 50.0-59.9 in adult Home Medications ?Medication ?Instructions ?Recorded ?Last Taken ?Type furosemide 40 mg tablet 40 mg PO BID diuretic 10/27/13 07/14/16 History atorvastatin 10 mg tablet 10 mg PO QHS cholesterol 07/14/16 07/13/16 History apixaban 5 mg tablet (Eliquis) 5 mg PO BID blood thinner 01/18/22 Unknown History albuterol sulfate 0.63 mg/3 mL 0.63 mg (3 mL) inhalation Q4H PRN 01/22/22 Unknown Rx solution for nebulization shortness of breath or wheezing #75 mL guaifenesin 1,200 mg tablet, 1,200 mg PO BID cough #10 tabs 01/22/22 Unknown Rx extended release 12 hr (Mucus Relief ER) folic acid 1 mg tablet 1 mg PO DAILY see PCP 05/25/24 Unknown History sertraline 50 mg tablet 50 mg PO QHS mental health 05/25/24 Unknown History docusate sodium 100 mg capsule 100 mg PO BID PRN constipation 06/03/24 Unknown History (Col-Rite) albuterol sulfate 90 mcg/actuation 1 inh inhalation Q6H #6.7 grams 06/05/24 Unknown Rx aerosol inhaler diltiazem HCl 60 mg tablet 60 mg PO Q8 #120 tabs 06/05/24 Unknown Rx metoprolol tartrate 25 mg tablet 75 mg (3 x 25 mg) PO BID #180 tabs 06/05/24 Unknown Rx tiotropium bromide 18 mcg capsule 1 cap inhalation DAILY #30 06/05/24 Unknown Rx with inhalation device (Spiriva inhalations with HandiHaler) calcitonin (salmon) 200 1 spray intranasal DAILY 08/24/24 Unknown History unit/actuation nasal spray ferrous sulfate 324 mg (65 mg 324 mg PO BID 08/24/24 Unknown History iron) tablet,delayed release ipratropium 0.5 mg-albuterol 3 mg 3 ml inhalation Q8H 08/24/24 Unknown History (2.5 mg base)/3 mL nebulization soln lisinopril 20 mg tablet 20 mg PO DAILY 08/24/24 Unknown History mometasone-formoterol HFA 100 1 puff inhalation 08/24/24 Unknown History mcg-5 mcg/actuation aerosol inhaler (Dulera) ondansetron HCl 4 mg tablet 4 mg PO Q12H PRN PRN 08/24/24 Unknown History nausea/vomiting potassium chloride 10 mEq 10 meq PO BID 08/24/24 Unknown History tablet,extended release(part/cryst) potassium chloride 20 mEq 20 meq PO DAILY 08/24/24 Unknown History tablet,extended release(part/cryst) risedronate 35 mg tablet mg PO 08/24/24 Unknown History tiotropium bromide 2.5 2 puff inhalation DAILY 08/24/24 Unknown History mcg/actuation mist for inhalation (Spiriva Respimat) cefdinir 300 mg capsule 300 mg PO BID 3 days #6 caps 08/28/24 Unknown Rx prednisone 10 mg tablet 10 mg PO DAILY #20 tabs 08/28/24 Unknown Rx Allergy/AdvReac Type Severity Reaction Status Date / Time bee venom protein (honey Allergy Other Verified 02/12/25 20:24 bee) (bee sting) Opioids - Morphine Analogues Allergy Other Verified 02/12/25 20:24 (narcotics) Tetanus Vaccines and Toxoid Allergy Unknown Verified 02/12/25 20:24 (Tetanus Vaccines & Toxoid) Family History Grandmother Breast cancer Father CVA (cerebral vascular accident) Surgical History H/O oophorectomy History of appendectomy Social History household members: children and none housing: house number of children: 2 current occupational status: retired pets and animals: Yes (2 dogs/2 cats) Smoking Status: Never smoker alcohol intake: never substance use type: does not use ROS Constitutional Constitutional: Denies chills or fever(s) Eyes Eyes: Denies change in vision ENT HEENT: Denies abnormal hearing Cardiovascular Cardiovascular: Denies chest pain or syncope Respiratory/Chest Respiratory/Chest: Reports cough, shortness of breath at rest, shortness of breath with exertion and wheezing Gastrointestinal Gastrointestinal: Denies abdominal pain Genitourinary Genitourinary: Denies dysuria Musculoskeletal Musculoskeletal: Denies back pain Integumentary Integumentary: Denies dry skin Neurologic Neurologic: Denies abnormal speech Psychiatric Psychiatric: Denies anxiety Hematologic/Lymphatic Hematologic/Lymphatic: Denies anemia Vital Signs Vital Signs Vital Signs: 02/12/25 19:43 02/12/25 20:13 02/12/25 20:22 Temperature 99.2 F H 98 F Temperature Source Oral Oral Pulse Rate 127 H 122 H 134 H Respiratory Rate 26 H 25 H 21 H Respiratory Effort Respiratory Depth Respiratory Pattern Blood Pressure 187/79 H 137/68 H Blood Pressure Mean 115 91 Pulse Ox 97 99 Oxygen Delivery Method Nasal Cannula Oxygen Flow Rate (L/min) 3 02/12/25 20:22 02/12/25 20:22 02/12/25 21:00 Temperature 98.3 F Temperature Source Oral Pulse Rate 148 H Respiratory Rate 25 H Respiratory Effort Short of Breath Labored Accessory Muscle Use Respiratory Depth Shallow Respiratory Pattern Tachypnea Blood Pressure 113/73 Blood Pressure Mean 86 Pulse Ox 100 98 Oxygen Delivery Method Nasal Cannula Nasal Cannula Oxygen Flow Rate (L/min) 3 3 3 02/12/25 21:55 02/12/25 22:00 02/12/25 22:00 Temperature 98.2 F Temperature Source Oral Pulse Rate 150 H 141 H 155 H Respiratory Rate 34 H 31 H 26 H Respiratory Effort Respiratory Depth Respiratory Pattern Blood Pressure 147/78 H 130/88 H 130/88 H Blood Pressure Mean 101 102 102 Pulse Ox 97 97 96 Oxygen Delivery Method Nasal Cannula Nasal Cannula Nasal Cannula Oxygen Flow Rate (L/min) 3 3 2 02/12/25 22:37 Temperature 98.2 F Temperature Source Pulse Rate 155 H Respiratory Rate 26 H Respiratory Effort Respiratory Depth Respiratory Pattern Blood Pressure 130/88 H Blood Pressure Mean 102 Pulse Ox 96 Oxygen Delivery Method Oxygen Flow Rate (L/min) Physical Exam Const alert, oriented x3 and no apparent distress General Appearance: cooperative HEENT normocephalic and head/scalp atraumatic Eyes PERRL Neck no lymphadenopathy Lymph Lymphatic: no lymphadenopathy noted Resp normal respiratory effort and normal air movement Auscultation: wheezes expiratory wheezes and throughout Cardio S1 normal heart sound and S2 normal heart sound Rate: tachycardic Rhythm: abnormal rhythm irregularly irregular Heart Sounds: Negative for murmur GI normal to inspection, nondistended, normoactive bowel sounds Extremity normal capillary refill Skin General Skin Exam: no breakdown Neuro no focal motor deficits and no sensory deficits noted Psych Appearance: appropriate Results Lab / Micro Data 02/12/25 20:03 02/12/25 20:03 Labs: Laboratory Results - last 24 hr 02/12/25 20:03: WBC 9.0, RBC 3.71 L, Hgb 10.5 L, Hct 33.5 L, MCV 90.3, MCH 28.3, MCHC 31.3 L, RDW Std Deviation 49.8 H, RDW Coeff of [place] 15.0 H, Plt Count 57 L, MPV 14.3 H, Immature Gran % (Auto) 0.900, Neut % (Auto) 51.6, Lymph % (Auto) 7.9 L, [place] % (Auto) 39.2 H, Eos % (Auto) 0.2, Baso % (Auto) 0.2, Absolute Neuts (auto) 4.6, Absolute Lymphs (auto) 0.71 L, Nucleated RBC % 0, Differential Comment SCANNED, PT 19.8 H, INR 1.6, APTT 41.4 H, Sodium 143, Potassium 3.9, Chloride 98, Carbon Dioxide 29.1, Anion Gap 16 H, BUN 18, Creatinine 1.07, Est GFR (MDRD) Non-Af 55 L, BUN/Creatinine Ratio 16.8, Glucose 108 H, Lactic Acid 1.5, Calcium 9.9, Total Bilirubin 2.43 H, AST 21, ALT 10, Alkaline Phosphatase 113 H, Troponin T High Sens 22 H, Total Protein 7.8, Albumin 5.0 H, Globulin 2.8, Albumin/Globulin Ratio 1.8 Micro: Microbiology 02/12/25 20:05 Mucosa - Nose SARS-CoV-2, Influenza & RSV (PCR) - Final ABG Data ABG results: ABG 02/12/25 20:32 Specimen Type CHA Sample Site Not entered O2 % 2.0 VBG pH 7.40 VBG pO2 39 VBG HCO3 30 H VBG Total CO2 32 VBG O2 Sat (Calc) 73 H VBG Base Excess 6 H POC Mix VBG pCO2 Pt Tmp 49.0 O2 Delivery Device Cannula Imaging Radiology Impression Chest X-Ray 02/12/25 20:01 IMPRESSION: Right lower lobe opacity may reflect pneumonia, aspiration, and/or atelectasis. Moderate pulmonary edema. Large cardiomegaly. Reading Location: [facility] Assessment & Plan Assessment/Plan (1) Hypoxia: (2) Atrial fibrillation with RVR: (3) COPD exacerbation: (4) Pneumonia: (5) Congestive heart failure (CHF): QUALIFIERS: Heart failure type: unspecified Heart failure chronicity: unspecified Qualified Code(s): I50.9 - Heart failure, unspecified PLAN: Plan 1 hypoxia/respiratory distress?admit patient to progressive care unit, oxygen therapy per routine protocol to maintain sat above 90%, albuterol inhalation treatment every 4 hours as needed, patient currently stable on nasal cannula oxygen 2. COPD exacerbation?Solu-Medrol 40 mg IV every 8 hours 3. Pneumonia?Rocephin 1 g IV every 24 hours, azithromycin 500 mg IV every 24 hours 4. Congestive heart failure?Lasix 20 mg IV daily, obtain echocardiogram established current ejection fraction 5. DVT prophylaxis?SCDs due to thrombocytopenia will not use Lovenox 6. CODE STATUS?DNR Comfort Care arrest verified Charges/Coding Visit Charges Inpatient E&M: 82207 Init Hosp L2
--- OUTSIDE RECORDS SUMMARY | 2025-02-12 23:33 | XMS RPT_ITS | CCD ---
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 sleep study. I am not sure what other questions patient has regarding Dulera? Please clarify [place] [address] Will you update nancy ent office notes on the Oxygen. [place] [address] Sleep study printed and on Dr Diane glaser. [place] [address] Triage message revie wed with clinical staff. [address] 12-15-[address] 12-14-[address] 12-13-2024 36 LVM for patient to c all pharmacy and ask what other inhaler would they recommend. [facility] 36 [facility] [id number] 12-12-2024 [id number] [place] [address]on 12-12-2024 36 TC to Pt no answer L VM explaining that lab was ordered and she can go to any [facility] or [facility] to have this completed [place] [address]on 12-11-2024 36 [place] [address] Message released to patient as written. Patient's further questions if applicable: Please call Alta to explain the recommended orders. Were all questions from office addressed or relayed to the patient from encounter: Yes [facility] 36 TC to Pt no answer LVM [place] [address]on 12-08-2024 36 ----- Message from A liset Bhardwaj PA-C sent at 12/08/2024 2:49 PM EDT ----- Let her know Dr. Moon recommends ESR CRP- if agreeable I will place orders. Thanks TC to Pt no answer LVM [facility] 36 TC to [facility] No answer LVM [place] [address]on 12-07-2024 36 1 do we have a copy of her old sleep study. We need this for the records. #2 once you give me a copy of the sleep study I can put in orders for a CPAP machine. We need those records first. Has she used [facility] before? Normal [facility] 36 Normal [facility] 36 TC to [facility] no answ er LVM Normal [facility] 29on 12-06-2024 29 Addended by: MIGUEL AMEZCUA on: 12/19/2024 09:36 AM Modules accepted: Orders Normal [facility] 36on 12-06-2024 36 Normal [facility] 36 Noted; scheduled wit h LOVELY Bacon today at 1:[address] Moon. Normal [facility] 3712-06-2024 37 -Alta, please take your furosemide once daily -Stop the potassium pills and start a new medication called spironolactone 25 mg daily -Labs in 1 week [facility] Progress Noteon 12-06-2024 Progress Note Normal [facility] 36on 12-05-2024 36 Noted. Normal [facility] US Heart TransthoracicOrdere d By: Ino Jacques on 12-04-2024 Aortic Sinus Valsalva 3 cm [employer] Phone: Aortic Sinus Valsalva Index 1.6 cm/m2 [employer] Phone: Aortic valve Mean systole pressure gradient by US.doppler derived full Bernoulli 8 mmHg [employer] Phone: Aortic valve Orifice area by US 2.5 cm2 [employer] Phone: Aortic valve Peak systolic flow by US.doppler 1.3 m/s [employer] Phone: AR Max Velocity PISA 4.5 m/s [employer] Phone: AR PHT 330.2 ms [employer] Phone: Ascending Aorta 3.1 cm [employer] Phone: Ascending Aorta Index 1.65 cm/m2 [employer] Phone: AV Area by Peak Velocity 1.2 cm2 [employer] Phone: AV Area by VTI 1.2 cm2 [facility] [employer] Work Phone: AV Peak Gradient 13 mmHg [facility] [employer] Work Phone: AV Peak Velocity 1.8 m/s [facility] [employer] Work Phone: AV Velocity Ratio 0.44 [facility] [employer] Work Phone: AV VTI 34.1 cm [facility] [employer] Work Phone: KAROLINA/BSA Peak Velocity 0.6 cm2/m2 [employer] Work Phone: KAROLINA/BSA VTI 0.6 cm2/m2 [facility] [employer] Work Phone: E/E' Lateral 21.11 [facility] [employer] Work Phone: E/E' Ratio (Averaged) 21.11 [employer] Work Phone: E/E' Septal 21.11 [facility] [employer] Work Phone: Est. RA Pressure 8 mmHg [facility] [employer] Work Phone: Fractional Shortening 2D 19 % 28 - 44 % [facility] [employer] Phone: Interpretation and review of laboratory results Abnormal [facility] Hospital[facility] Phone: IVC Diameter 2.7 cm [facility] Phone: IVSd 1.1 cm Abnormal 0.6 - 0.9 cm [facility] [employer] Phone: LA Diameter 6.4 cm [facility] [employer] Phone: LA Size Index 3.4 cm/m2 [facility] Phone: LA Volume 2C 157 mL Abnormal 22 - 52 mL [facility] HospitalRev[facility] Work Phone: LA Volume 4C 164 mL Abnormal 22 - 52 mL [facility] Work Phone: LA Volume A/L 167 mL [facility] Work Phone: LA Volume BP 161 mL Abnormal 22 - 52 mL [facility] [employer] Phone: LA Volume Index 2C 84 mL/m2 Abnormal 16 - 34 mL/m2 [facility] Work Phone: LA Volume Index 4C 87 mL/m2 Abnormal 16 - 34 mL/m2 [facility] [employer] Work Phone: LA Volume Index A/L 89 mL/m2 16 - 34 mL/m2 [facility] [employer] Work Phone: LA Volume Index BP 86 ml/m2 Abnormal 16 - 34 ml/m2 [facility] [employer] Work Phone: Left ventricular Ejection fraction by US.2D+Calculated by biplane method of disks 53 % Abnormal 55 - 100 % [facility] [employer] Work Phone: LV E' Lateral Velocity 9 cm/s Self [facility] Work Phone: LV E' Septal Velocity 9 cm/s [employer] Work Phone: LV EDV A2C 101 mL [facility] [employer] Work Phone: LV EDV A4C 68 mL [facility] [employer] Work Phone: LV EDV BP 83 mL 56 - 104 mL [facility] [employer] Work Phone: LV EDV Index A2C 54 mL/m2 [facility] [employer] Work Phone: LV EDV Index A4C 36 mL/m2 [facility] [employer] Work Phone: LV EDV Index BP 44 mL/m2 [facility] [employer] Work Phone: LV Ejection Fraction A2C 46 % [facility] [employer] Work Phone: LV Ejection Fraction A4C 60 % [facility] [employer] Work Phone: LV ESV A2C 54 mL [facility] [employer] Work Phone: LV ESV A4C 27 mL [facility] [employer] Work Phone: LV ESV BP 39 mL 19 - 49 mL [facility] [employer] Work Phone: LV ESV Index A2C 29 mL/m2 [facility] [employer] Work Phone: LV ESV Index A4C 14 mL/m2 [facility] [employer] Work Phone: LV ESV Index BP 21 mL/m2 [facility] [employer] Work Phone: LV Mass 2D 181.9 g Abnormal 67 - 162 g [facility] [employer] Work Phone: LV Mass 2D Index 96.8 g/m2 Abnormal 43 - 95 g/m2 [facility] [employer] Work Phone: LV RWT Ratio 0.42 [facility] [employer] Work Phone: LVIDd 4.8 cm 3.9 - 5.3 cm [facility] [employer] Work Phone: LVIDd Index 2.55 cm/m2 [facility] [employer] Work Phone: LVIDs 3.9 cm [facility] [employer] Work Phone: LVIDs Index 2.07 cm/m2 [facility] [employer] Work Phone: LVOT Cardiac Output 4.2 liter/minute [facility] [employer] Work Phone: LVOT Diameter 1.8 cm [facility] [employer] Work Phone: LVOT Mean Gradient 2 mmHg [facility] [employer] Work Phone: LVOT Peak Gradient 3 mmHg [facility] [employer] Work Phone: LVOT Peak Velocity 0.8 m/s [facility] [employer] Work Phone: LVOT Stroke Volume Index 21.6 mL/m2 [facility] [employer] Work Phone: LVOT SV 40.7 ml [facility] [employer] Work Phone: LVOT VTI 16 cm [facility] [employer] Work Phone: LVOT:AV VTI Index 0.47 [facility] [employer] Work Phone: LVPWd 1 cm Abnormal 0.6 - 0.9 cm [facility] [employer] Work Phone: MR VTI 127.4 cm [facility] [employer] Work Phone: MV A Velocity 0.24 m/s [facility] [employer] Work Phone: MV E Velocity 1.9 m/s [facility] [employer] Work Phone: MV E Wave Deceleration Time 292.1 ms [facility] [employer] Work Phone: MV E/A 7.92 [facility] [employer] Work Phone: MV Nyquist Velocity 36 cm/s [facility] [employer] Work Phone: MV Regurg Velocity PISA 4.8 m/s [facility] [employer] Work Phone: Pulmonary Artery EDP 18 mmHg [facility] a [employer] Work Phone: Pulmonary Artery EDP 15 mmHg [facility] [employer] Work Phone: PV AT 79.9 ms [facility] [employer] Work Phone: RA Area 4C 33 mL [facility] [employer] Work Phone: RA area length vol 120 mL [facility] [employer] Work Phone: RV Basal Dimension 3.6 cm [facility] [employer] Work Phone: RV Free Wall Peak S' 14 cm/s [facility] [employer] Work Phone: RV Longitudinal Dimension 8.2 cm [facility] [employer] Work Phone: RV Mid Dimension 2.9 cm [facility] [employer] Work Phone: RVSP 64 mmHg [facility] [employer] Work Phone: Sinotubular Junction 2.3 cm [facility] [employer] Work Phone: TAPSE 1.4 cm Abnormal 1.7 cm [facility] [employer] Work Phone: TR Max Velocity 3.73 m/s [facility] [employer] Work Phone: TR Peak Gradient 56 mmHg [facility] [employer] Work Phone: TR Peak Velocity PISA 3.7 m/s [facility] Work Phone: TR VTI 109.5 cm [facility] [employer] Work Phone: TV EROA 0.3 cm2 [facility] [employer] Work Phone: TV Nyquist Velocity 35 cm/s [facility] [employer] Work Phone: [facility] [employer] Work Phone: US Heart Transthoracicon Left Ventricle: [...] CPACS Progress Noteon 11-27-2024 Progress Note Normal [facility] Progress Note BP is well controlle d. Continue current management plan. Normal [facility] Progress Note Pt was left a detail ed message and to call the office if any questions. Normal [facility] 36on 11-21-2024 36 Patients office note s 9.9.[address] results were faxed ([phone]) to Dr. Chau at the [facility]. Normal [facility] Progress Noteon 11-21-2024 Progress Note Normal [facility] 36on 11-20-2024 36 Last OV:08/15/24 Scheduled:no apt Normal [facility] 36on 11-17-2024 36 Normal [facility] BCR-ABL1 t(9;22), BloodOrder ed By: Ramon Stockton on 11-17-2024 BCR-ABL1 TRANSLOCATION T(9;22) Not detected [facility] REVIEWED BY JERMAINE Sawyer M B (ASCP)[facility] CT Abdomen and Pelvis WO and [...] MD Electronically Signed Date/Time: 11/17/2024 12:01 PM [facility] [employer] RADIOLOGY SYSTEM [facility] 1950 [id number] Exam Date/Time: 11/16/2024 09:28 Procedure: CT CHEST [...] stranding/edema in the ventral lower abdominal/pelvic wall. [facility] RADIOLOGY SYSTEM Teja Mcintosh MD - 11/17/2024 Patient Name: [facility]ER : 1950 [id number] Exam Date/Time: 11/16/2024 09:28 Procedure: CT CHEST [...] prior studies. Thoug (more content not included)... [facility] CT Abdomen and Pelvis WO and W contrast IVOrdered By: Teja Mcintosh on 11-17-2024 [facility] Work Phone: CT CHEST ABDOMEN PELVIS W CO NTRASTon 11-17-2024 CT CHEST ABDOMEN PELVIS W CONTRAST Normal [facility] CT Abdomen and Pelvis WO and W contrast Yisel 11-16-2024 Radiology Study observation (narrative) [facility] 36on 11-14-2024 36 Message left for pat ient to return call to office to set up an appointment with Dr. Mccann to review lab results. Normal [facility] 36 Normal [facility] Flow cytometryon 11-14-2024 Case Report Flow Cytometry Case: [id number] Authorizing Provider: Marion Mccann DO Collected: 11/09/2024 1508 Ordering Location: [facility] Oncology - Received: 11/09/[address] [place] [address] Pathologist: Rachel Avery MD MPH Specimen: Blood, Venous [facility] Disclaimer w5aoeHQzGWIjuLLuDlDh MDAwX IRqi2cbPGWqzINgWlRxHcPwJc QiSqefkGRaKPXeRdIlq9xnj33 5dNSpe2yzLDIfHhQ4qCNxVAUl U00bYJIIH920JDGjEQqhe4uyb 5FpEYKnaQUip9J5YNQUOSisFT KPZCm6nCdfT19xz9Z6NfyfU4x bPKIkMTHdW2XiTZ9nKGYpObt6 QPP8NFO1OFMeFFHoZ7OaWW4dC NRhjELwYDj2g9bpeBlbJCYuWB M9n5kuRXxxqvIgXM0wcb3rdSe 7w7iamiYpQMVxARWlwQUVFUCj M3GbcHdvBt5qlYr7rLmjVtzxN JX2Jed0YQ6hvl18omx2yYwvMU HibjlxKmB1OQcyVZObmopsVXo 1AZxcYZLjqUA9HCQipYGpX6Kv DZNqTC8pstf6VIR2BWrsJUGtL kW4SMFioBUbAONtrRnrBIkvg4 18ENY4YrXjNS8aX8Xmi3C7eF5 avSQhLQWyzYQqBmGfMUGqzt9i ySXoEIstf5DyZZC7znO4bZZkw BSjFMOgFX12Ymedq7WuVzxiEJ K3VVDhoaWix6Ppf6ueRuShzdS pF1rmA4WiIWKfDKInEOSiSbHl guAfa3Erk0ByvHSwsQe4e4soD LWgCZVvlCyjy9lwWZN4FWYcV2 Y8tBTfr8tjJZirCIPtmLU7khS 2ZHBanNEnD2SbkX7nOLQsQT6e uak9x5yhKZH6LHcaKFYuGiM1j wT5OMRfcTEtUQGlfQsyZOuvt7 01LFP1BvQmLGXqu8VuU9BieUz lZ89qrPxrL78wBQZxcYvtrJ4h gSwdpJ5sFcWlHnVjFWjfqJbgp TFzxjhqUEcoruT9EPkdxrkpUU LdKDtcO2gpJfThGFRzvPtuMDs mm1CeDYQmYAIzQHRgTFucZ6zo lP6stpbgFFccQBCqjAfsa4ilH dMlbBP1AB2uskVnEIQkoVwjet H9agZvtKclfI6snE0vlKdxbW5 otNHzqYB7nrfsVEtdHDMcuNTg uEdckjocpRlmfFuqvluayE6vJ WM0hMFhDPV4rBUtFPLqMMUyCQ WneK99fq6vuGOeeiSxP2GdB0L xtKFtzKzrFqqnxKWvuCJuIy4w sAXsHF8jLBHwlIOcB1OyQS3lX HBhclxwYXIgVGhlIHVzZSBvZi TxahBfc2NneV6tHKQbOPAuFY5 1rkBbshM7pEOrLJDppxCdbOZf dHMgaXMgcmVndWxhdGVkIGFzI JGvBSNsYJx5fBVma8WeA3fjdB SjmpSrG4RhtSAmNBGOFI7tLVj lq8VicKCoxLGkt6OoGVEmWINm bW0fMCUrEG6hVZAuYDfzMDPpy oMmmq8yobAjSGAkZLWrK7Atwm ktwZhjjgMnMFVowb7gvaYvJTM 5IHRoZSBjbGluaWNhbCBsYWJv nzP7d8VgFLNsz2QjR9SwdMZfC BUyuGIeXYT6g7NrmT1lBXmxtV FsFIZyIT9swSKyUJAsUUOnMON mOKFjAxwrbNdoBXUDFJGka7Zo QE2uAUAzmOzdKAFkjW8jv5GdM QLgu33wFOQVKQqnSUPiKMDYLO EgaGFzIGRldGVybWluZWQgdGh baDFdkOLiFIRxSZFkON9gGGSx mtJkjNAla9IehKNpvnJhm5Egz pTvJKDmXQA8YyUcuUThUYYofn OCuYgsqI9rdP2sm5ShnO3jTHj usnAsgKTlQf4oaINcFX6zDEFg cmFmZmluIGVtYmVkZGVkIHRpc 9J3SK5zKNKjyh6whbqszJMagT 2wqHMiqsLsCF3pCD8jN4R4tGJ uIFOknaNgv8liODh0mAUcBFLn tWCefOXzDcpwJIE9BDIjZDC9z cNqnpZqYZFokEaenQK6iSNfPJ AgVTToREUdVQ32J7Sqz6OwY8x nBL31PNZfOVXlDGYwiyGny5oy QBUaz9wrPOCtbAPtK3DzNMXoh RYgntpoFcFvFCH1UQDuWUH9uL IgLFQgQ0ZjtOVjtRYerF77DE3 cbTQ4RQ5nBPH9TEewnR5jSqTG aB40fy7vhFB7q5CqOZ3hG3FdZ MSyd0D2fmLvIKDsXN5xdPIjSN VuIHZhbGlkYXRlZCBvbiBkZWN tdHMdZrkkQWJ1oKEapURgJwXI VEW6aNImETQgs6WrKDGnIPRuq aIggtRpIGAfRQL1eEZwYBOklT Ylf34bG7v2WW0suBocFUHevJL wUVUue6JxcYTucWq9pHNmXaYe YAldSKKwKQdesOa2tVX9RS6uK JUfD8ZeS4iliNDyNADfAOJqrU Tskz7piSAljQ== [facility] Flow Interpretation k2rmzUXsVCZweAGmDGBo MVxhb pMlBBEphIRrD1QuecalRVdkYL 2wUB5fzEjfoYEfbOJiQHGgErR be3jqz563lPXbi6kyHKLYELvd YNXDRMd8wTjwG47uk7E3NtfyQ 70pbGJdZFG3CHKyKBNwrGMtTX XlYSK4EMXocVQqN4okZTBzJC0 anmhwTXdcDEilEXJpmIC5YESk nFXkG6XmFAZcUIgyBZBvild9R hVqFv4ulTApaIptGIoxLNOuJL OyIRgwJCTgIcEzUFdUU65IH8v YExXWVqLZOFMEJEJqDQ8QW3UC QERLFVRDDTQvL3kNE7WLSWQkJ 4QOHPP8TROUNlDNPu4RVixtYa 6KGH6WWTuFIDRnMaOPGNdQF38 asTJxSQUprqGEJvEPTo4FBOXG PKJGK8OAPNiyN9U5ZKnuI4CtE HVZYGLlGYGAQVotH3L1GUIMVM ieUTNEDSoiN8YeUYxrW7XoLAP sIENEMTksIENEMjAsIENEMjMs IENEMjUsIENEMzgsIENENTYsI BDEWDbjLGWNYROfIdeoU9SiCC YpNHBSFf92LABkR4BghTZjKTS ZIU4uJHWrCKHbqzfrWFLuCHqO Ad0WNYNZFnEFf07bZ0e2ZDYvR ASkUIkwJ8QyRSXxVBXkYTexMM K2iXChADYdgPeqp9QslUbuk8T cx8B8RXVsOISqXX14vUjmVDcm eiZzc6jlXqHKCMG4DiJrSI08F SBvZiBldmVudHMgYXJlIGlkZW 91gGGsRANhDNOicCF2nQRaLEe 2dCBvb5R2hJMrHJR3DTTZHCVk UY7iIXDdEMKxg9BfoMCyqaAcj XZmVMM8TTXeo6OrZ9EtJPCyZC Lta4MqgOpkuXkrG4m7PYJqKWE gJMWqF3TkgUXpPWmjkOzulUpj FDEjuAlcy4bsNzBzx8KxIUmwx K7itQ6vyLuvus11wGJlWxZfc6 TrbFw4EODgu0AeY7IzSXgyA8J qCPjscuVjiJFieIOhL4BpVwbu vT4nONMghIVzU8DoPTbrB2X5V NzpSq9LKrmxpcAlOYMwzrPnLb 2jJEFRBSxbU5AoEQfbT7GcKQY sIENEMjUsIENEMTAzLCBDRDIw DBmkk2v4sDYxk7d0aJwviCZpk 3VyZmFjZSBsaWdodCBjaGFpbi QvsPApRXJylO6iCqXABOYumBa dOIWzZ550jaHiWj7pNBo1ONHp MmWplZ6wwJ2nuBJpytP8uJRxH BGyAMMlHDGnpSBuEHOZLFP3ft PIKDrrmhV0qG1cy7OfKV18DsL UxCKlDXTlnrCrphWqu4UqFQ9i AUNyS1AxnAHafbGeE7Zwyw0qG TElngwmFMAyR66GXPACOUxrJD bdBYUstdfroTGdSZewZwemy9G po44xQBDhoTBcsnX0lUF7NOVf B35aW5BupfOifTq0QoYrLA1rc 3R2tHHsMEPtCMRjofYfZTNbOZ NtOQJdlkNjxkMmomZnd8g4bCC UJyEcXZM1LVuxd4f6qUQcU3Ie f3lhicDjORCyjy0bqZBcRXynN uR8oF2wBVWmRZNyvGHsaIhdz1 1wRdMolaGnuIklxYmnyr6xO3Q cqqLey3T2cWOvSANus6etp6Pa QCVzp62msHQztHGnlL2iWQYfb 81oXB0oUMW2e62aeFdmNE76Z4 vabI6wPAHfxxfsQTBuU9WgodB vjVzsaRuhUEUmpaIglkicEB4d HNBrrnBiq8GppdLmdA3qq0X0z V8ubKEbDC59EP0wahMruneaBW Jmls7pIz9cgWWaiEDopPLeQGA uZCBhdHlwaWNhbCBncmFudWxv P9k1VWKsMZB7rTGyvuXwmqUnI 93yK2SdgekpOcPwk5RdlW7pDT KcoLljNzUifETwr2N5r9UvNER 3cFCai8lvCJEosVMbzXwojK5p aj2tvWAehjL5vUQwWW4gl7JnW UQaRCSypOPyCFBeDNSwoe5fmY LfwNzrxS2fi06mD3p9yBAwiWY 9g6WvxAEhRWSPDJ9bt7H0IDDy RLCzWPiehpYptuHgKTNrx45sm CFruQMfWzSilW3ltY2mTCOkrQ AmwSY1VXIaRNVuHM3hfS2dQOH uj5BfWSEil78xu9x1cQIzHBDz cLq5XMKbvwKjJU4zoHFywGbpA OXyn5Gqi4Qmve3thYDlRFZexu XZXV5yhCujJMSjz8WtouwnJE1 2RPhkoTEvBpeZHHSrqtMit1Yf Jj7cMQOzTKOgu8kzPhfvvTC3D JmpQLNgW11wgGAnNXOdJFZapo QbhPL8gMFiQFX3UIy4GXLjw99 bpYFuN8vbgvofXGuysBGvzsFn T7A1VLUeDUTzezjqTXE8 [facility] o2gyzKKmOLBepUNGMFLh MDRcY G6fsEzpcHf4vFrkTHNiviM4fV AuDVwpv7gvRFR1b0xpsaFYVur zWBHwXW6cYLvnUKOiRF0sSpXc XGRlZmYxXHBhcGVydzEyMjQwX BJwjGBxcVJ8YZClEP0jriuyDZ lfIAzjSQZmcvT6WTWwpWLmN0S aOKEcSZ5wyvomBHP3VLVJLwxv Hr6znULbdTDUFvekXxKbGwPcN JQpGSVqPEBys0fkofVUdlpbuS a2FYb1CHOrNGMlmMUgn2O4XQt gx6cuy2SmR5Far3KuFDi3mZ7X OfieENO2IORYLapiJykoaHlvh 2VjdCBcXHNnIFxcaWQgNTEwMD ZeLXaxYnQLIqUmJfM5Yvt4Lja 3RoA2LZe0LUXFWVKkWty5HwFx VYm3HSl7EJajupdeHAx0HXOuR KjubOXmGC0gfQbxJmkkqAtpl8 VjdCBcXHNnIFxcaWQgNTEwMDI iQNgbLcYGGzKmDmV9Fek5Owx1 LdG8IPq0SJJWFhCuTtOxBQBiU oQ1HwZyDVr3UGu3JElJAyT5Dr j2AzYeJpFtAAZzFVItLOlhvTK cXHQgMiBcXHNzIDMgXFxmbCBc LM0vzBsuLFBtAS1OESKxSIcqQ KYfiLTIVHX2PD7tMXMFEcrnrQ HsZRCmOTyzbKUmF6vaSpOvQmY gZfApZLyvxn94ZTW3i0eadBYb OLqpQpyieYVskwH9ZYmWHEMEF YcMByLrLB7eBYkJF3EVIYrJBh kbTMpqLid9NPxrtVoiObstgiQ heHCyRcYKlP0uXOymKrtqqDL1 TQfkBouvuU7xqCUTWJIBBhrXK uqejzYfFH7CDDQUPA6KnQWvCE MkH8thfPH6n2wqcWPpi8e0PVv iFGU7cJxoaMQedpizcDHymNrp MlxmczIyICBvZiBccHJvdGVjd NcyXnmewYS2MNufLupebK4mjS VIHXOHSrkBPymbxoPsUF6PTAD MMfYGCL87DVN3IMZ5uXF5Wt54 VFVfVSJtkJFzYGnbP623Zxgre 7L2TRScYOglt4wlURYiOBkxw0 RrRFsDWJAABF7OJT2rrVN0WOe UTHYDPVmfDGmeEiY0OooqiBzy KlixflExsABaKjRQhG8avYowk P4mdIYsC5fyIvFbQtLmVfNtnH 8nPYHdy5KcN3D9LVFmUSbro2h bXPTaWHkbo5JmKHhUIBPJSP5H NL3sgLR0UZwRQQTUH2vRgEAtT TNoWoxdxGG5m4jznLOsv7e6BI bnNEA5pFCRSZY1KSJpELhtq2k qIPWiNZoba5VlBYiLUAVGHO3Q FJ8noDC5MSxYTQLBZVpwKJsqR hQ3D8jkyFfdTsqysmGirDZtJq INpF2yhHtvaS4xoEAoK8wiYkF eXyYwRzVpaMPgltYnLFb5IPCv Mu8iPSTtw8ntX6o6e57emDYjO lJyxdTgdAWkts7hEWOlkmKQAj hpSQBzQMPxpDRNp4EkCASXChp 9VB3BNNPyXGJzjJOVOER5SA1t TVaoUEEmI0NkO9CovgE4k5yis Ihzg9CapBOhIS5qyTFjLZ8ZDI TmemSdOVwqsLaymE5fKQa7 [facility] Pathologist Interpretation Location [facility], [address] [place] [address], CLIA: [id number]; Joint Commission: [id number]; CAP: [id number] [facility] Specimen source Nom (Unsp spec) Blood, Venous [facility] K/L Qnt Free Light Chains wi th Ratio (BKR QUEST)on 11-12-2024 Immunoglobulin light chains.kappa.free (S) [Mass/Vol] 13.2 mg/L 3.3 - 19.4 mg/L [facility] Immunoglobulin light chains.kappa.free/Immu noglobulin light chains.lambda.free (S) [Mass ratio] 0.99 0.26 - 1.65 [facility] Comment on above: Free kappa/lambda ratio in [...] these disorders. Test Performed by Domingo Tyler, [facility], [address] [place] [id number] Luis Brown M.D., Ph.D., Director of Laboratories , CLIA [id number] Immunoglobulin light chains.lambda.free [Mass/Vol] 13.4 mg/L 5.7 - 26.3 mg/L [facility] Immunofixation Electrophores nick 11-11-2024 SHAHZAD See Below [facility] RELEASED BY Rachel Avery M.D., MPH [facility] REVIEWED BY Tracy Burgess MD [facility] A faint monoclonal I gG kappa protein cannot be excluded. Correlation with serum free light chains is recommended. [facility] Serum Electrophoresison 10-15 Albumin [Mass/Vol] 4.8 g/dL 3.1 - 4.8 g/dL [facility] Alpha 1 0.4 g/dL 0.2 - 0.4 g/dL [facility] Alpha 2 0.7 g/dL 0.6 - 1.0 g/dL [facility] Beta 1 0.5 g/dl 0.3 - 0.6 g/dl [facility] Beta 2 0.3 g/dl 0.3 - 0.5 g/dl [facility] Gamma Globulin 0.6 g/dL 0.4 - 1.4 g/dL [facility] Protein Fractions [Interp] See Below [facility] RELEASED BY Rachel Avery M.D., MPH [facility] REVIEWED BY Tracy Burgess MD [facility] Questionable band pr esent in the gamma region. The band has a concentration of 0.17 g/dL. Low total protein. See SHAHZAD for additional information. [facility] No Panel InformationOrdered By: Rachel Avery on 11-10-2024 Case Report Peripheral Smear Alexis e: [id number] Authorizing Provider: Marion Mccann DO Collected: 11/09/2024 1508 Ordering Location: [facility] - Received: 11/09/2024 1521 [place] Pathologist: Rachel Avery MD MPH Specimen: Blood, Venous [facility] Work Phone: Comment y4fmwEWwEJJjdULiCEEs MVxhb rLgHWWaqLBeH0JoyuvvNMimLG 3vFF4aiHxvxDRojAIcTEYpYrR og0ntq765aUWqj5gzOEMJYZsw DNSNXVe6sVarY71ud4T8KmkfN 29upBNxPJR3VBMgCFRkwOMiPN XuPOM4IMMhqWWvA2riLLDgNT1 vnahrPBmqSJesVOTsgRH3RRZa wSQbL9IvNHGkKBhxDAOlwxg7R vIsOa7mlPMdrEumHEekSQHxSL MwTXscXVNfNmFvSZItuS2zz1U 4nJ8btZMrpSMjk3dscCTzANGa taRzKMPpJAWsk31coEI7QGArC GdpdmVuIHRvIGFuIHVuZGVybH dzplcxrMitwR0jeSWoiCGgxSi yZ331ZDnmcWLtkCsaUFTzxIx8 UWPoNY4qbRParD9sbIMxvT== [place] Work Phone: Pathologist Interpretation Location [facility], [address] [place] [address], [facility] [address], CLIA: [id number]; Joint Commission: HCO [id number]; CAP: [id number] Welcome Real-time Phone: Pathology report final diagnosis Narrative f2qwhTRjQYXemCDeQCYdLYblo iYeGQJtzJMaE9ByeqaeNBrjRZ 3aWZ8spZigcUXzyIAlCUElFfB bh7zyx316gQIsm4lpXJNMFQll QKAZUNw9y4qxBJTPWHXzIU7sU 447ANAgLUPpbDQlLNFuCdR8S9 70LNYkCLzvemboeP1mxzv6rOb iU45aw9J1CuoiF730EHesmWty aHTmJggoh8xqjYK0PBqbh0YmU UE4GuomMCY3AAzhaRN9bYOsuD jdsBGtME9dq4jnlLA2xgPnZAY 0uJtnxCS1qEqzjdcmi7arcWQ4 uRS0QTkadRL8KOxfJyYdE0enX LWbdL9cA16lB3elDAWugHwcKK wzCERfnCR6OIN8SGZnb9rcLUN yhLQrwASvAhOoLHN4LwK0RYro XPN8zCeniCI3PPenzT4aHFFjF 31cZjFcbGkzNjBcZmktMzYwfX tcbGlzdGxldmVsXGxldmVsbmZ bZkMyxDG3ZXawTgUmWjPxqDJ7 HXewHnUuoAC6WBmupMVyaNR0L MwmsBG3VNc8AUx7JMkkOJ14wP scwFT8CHsagV9kGUDuR74tQsU cuVzjWAmgGEApPOU1KX46WIff t2ZsSRJrvUfsJQXelM1vTpJnT GxldmVsbmZjbjIzXGxldmVsam SeCBadluJhe1KtaxZweFE8HRo quzZumAY8rUdsMHQkqI6cAIT8 CE15nFmwnOZ3RSmxjM5rUTKaA 39yPlSvdXuxKTLtIYBiCRT7NT 75UFbpd0ImYGGrpUdiNHCfaT6 mYzIzXGxldmVsbmZjbjIzXGxl nxRualEeSTkaenDxk8HyurUzn EG4KHgdqvNyySZ8uXsqCYEccI okJcKcWEz3IZe4n7tcLESgfY2 7eGDpvsE7sHbzOCqpcUZ6PgJx ZmktMzYwfXtcbGlzdGxldmVsX LkpnlBhzfUvEiEigOW0DLhjWu MgSkVmzOA2BIijFvFcpSO9BRo mcTVeqQW2OTerpKZ6USd1QYo7 NYgtJK14gNvnwXZ5XWgcrA4gM KLmM45qGxCmlTtuUtFhDOOmPM K8OH72XMtpb4MwJBFclIiuJQS gnH9jUsIyLLqegeKolsUlaeKb PNvuaeKshiWnMUhvifAel9Fjt qHvuRM7ARmdtjDlpUL3gTvjII VhvN9wBNK7XJ28mGtdtVN4MXb pfL2bDQQhU52xNaZcbPslAIHg PFUcKJB2CE39SBbad8UdWKJmx KvhDWMtiF4fVyHuNHagruTahy ZjbjIzXGxldmVsamMwXGxldmV az5NplaWbwUC3PAxycpYdpLG3 lTvcWACodIaoJtYfQBw4UBl2j 6prBKVpnC21nQLthaV0wRdrRO pwiGC2PIRpKzmrZeSxyCtqqDk zdGxldmVsXGxldmVsbmZjMjNc zIQ3NMnoKwChGgCiuXV1HMifT zLsiKD2PKltkUVmcJD1ZNwrcK J4SQg3JMy3HCtyTL98rWnozRQ 8ZYifzF3pTSVoI21qYhHvkLy9 JUZtOTVgLBX7XY92RXbin6SiY EKjqOndSQWrzF8gUeVlEVxfso VsbmZjbjIzXGxldmVsamMwXGx bknMnz8LlndKjcWU3ADyjivNa mOF4eHqoDVUgtF4bZAH9PO10g PruyOY9SImmsB3lNKOvH83jZn LmbHq1UHPzPLCoZYY9IP97sBk pEmaxnSN5q1WtktAqSGM3KBDa EMdlPtokwQQ6u4HdqqZaOFDcz XxruGigElp2WcO3Iac5YStyz6 NvssYbldxpSWAvvO69DYdqbhA 1uPtaJPHgxmuwHaP0SExsEMCx zrhxKUp6IBqlGUKicIT3CTNoo ADvF3CiPIDsAD9fmaf0FTL3ZS lwEZHzZfK5FYDtaRLjLGEhuNk cUGknu847VLL2JsVbSSDjnpJp mKgwkO1uRsNqABZAYRBNJZhFE kFMIFNNRUFSOlxwYXJcbGkzNj OcFmifLqSjKYchohZ0UVrkomQ oeSs4xNDndXrsdE3uBuJbNNFV p4Pvl7U0tDvwYQItMU5pFX0fk JWkTDZhw28skUInJR8iku7sfN Zqy8hnBoQivBHiFEUngo0sAg3 jeXRvcGVuaWEuXHBhclxsaTBc ZmkwXGxpbjAgUnVsZSBvdXQgY btmr9HquZ3fzcxfwYAtp0b9s2 pvIXJfkjSgN5Mar02kGYPlgPD aqKAtOSiwOmVlY5Bjy19jOU54 dHJpdGlvbmFsIGRlZmljaWVuY 3ksIGRydWcvdGhlcmFweSByZW usnLDiOCGzWU9cWOPtZYBbEHH fzwUnvFLiu8OyN5zgj96eDcNj agTaCA1eKNDwb34wXGRgW20lb MQeLpD2kP7nTTMgW4GxrrDmQH BhciBObyBkeXNncmFudWxvcG9 pZXNpcyBvciBibGFzdHMgaWRl efOuHjhdGC6tmYKnKPecPSviN MBicDXlFPXyIlNavEJVIH4fbu O5AR5bPA6xUfGNTGosbiTMaXz 1dTCICmKcDS0KCVjcVSD8 [facility] Work Phone: [facility] Work Phone: BCR-ABL1 T(9;22), BLOODon BCR-ABL1 TRANSLOCATION T(9;22) Not detected Normal [facility] Comment on above: Performed By: #### L [id number] ####[facility] (NEOGENOMICS)[address] [place] [address] REVIEWED BY JERMAINE Sawyer M B ([facility]) Normal [facility] Comment on above: Performed By: #### L [id number] ####[facility] (NEOGENOMICS)[address] [place] [address] CBC W Auto Differential pane l (Bld)Ordered By: Rhiannon Garibay on 11-09-2024 Basophils (Bld) [#/Vol] 0 10*3/uL 0.0 - 0.2 10*3/uL [facility] Basophils/100 WBC (Bld) 0.2 % 0.0 - 2.0 % [facility] Eosinophils (Bld) [#/Vol] 0 10*3/uL 0.0 - 0.5 10*3/uL [facility] Eosinophils/100 WBC (Bld) 0.2 % 0.0 - 6.0 % [facility] Erythrocyte distribution width (RBC) [Ratio] 14.7 % 11.5 - 15.0 % [facility] Hematocrit (Bld) [Volume fraction] 32.4 % Low 35.0 - 47.0 % [facility] Hemoglobin (Bld) [Mass/Vol] 10.4 g/dL Low 11.7 - 16.0 g/dL [facility] Immature granulocytes (Bld) [#/Vol] 0 10*3/uL NINF - 0.1 10*3/uL [facility] Immature granulocytes/100 WBC (Bld) 0.3 % 0.0 - 2.0 % [facility] Interpretation and review of laboratory results Abnormal [facility] Lymphocytes (Bld) [#/Vol] 1.2 10*3/uL 1.0 - 4.3 10*3/uL [facility] Lymphocytes/100 WBC (Bld) 12.9 % Low 15.0 - 45.0 % [facility] MCH (RBC) [Entitic mass] 28.6 pg 26.0 - 34.0 pg [facility] MCHC (RBC) [Mass/Vol] 32.1 % 30.5 - 36.0 % [facility] MCV (RBC) [Entitic vol] 89 fL 77.0 - 99.0 fL [facility] Monocytes (Bld) [#/Vol] 2.2 10*3/uL High 0.0 - 0.9 10*3/uL [facility] Monocytes/100 WBC (Bld) 22.9 % High 5.0 - 13.0 % [facility] Neutrophils (Bld) [#/Vol] 6.1 10*3/uL 1.8 - 7.5 10*3/uL [facility] Neutrophils/100 WBC (Bld) 63.5 % 38.0 - 82.0 % [facility] Nucleated RBC/100 WBC (Bld) [Ratio] 0 % [facility] Platelet mean volume (Bld) [Entitic vol] 12 fL 9.0 - 12.7 fL [facility] Comment on above: MPV is a calculated measurement using platelet volume ratio Platelets (Bld) [#/Vol] 102 10*3/uL Low 140 - 440 10*3/uL [facility] RBC (Bld) [#/Vol] 3.64 10*6/uL Low 3.80 - 5.2 0 10*6/uL [facility] WBC (Bld) [#/Vol] 9.6 10*3/uL 3.6 - 10.7 10*3/uL [facility] CBC WITH AUTO DIFFERENTIALon 11-09-2024 Basophils (Bld) [#/Vol] 0.0 10*3/uL Normal 0.0-0.2 [facility] Comment on above: Performed By: #### L [id number] ####Maint Mechanic: AMAN SANTOS ([phone])[facility] ([facility])[address] [place] [address] Basophils/100 WBC (Bld) 0.2 % Normal 0.0-2.0 [facility] Comment on above: Performed By: #### L [id number] ####Maint Mechanic: AMAN SANTOS ([phone])[facility] ([facility])[address] [place] [address] Eosinophils (Bld) [#/Vol] 0.0 10*3/uL Normal 0.0-0.5 [facility] Comment on above: Performed By: #### L [id number] ####Maint Mechanic: AMAN MEDINALeannOMID ([id number])[facility] ([facility])[address] [place] [address] Eosinophils/100 WBC (Bld) 0.2 % Normal 0.0-6.0 [facility] Comment on above: Performed By: #### L [id number] ####Maint Mechanic: AMAN TOM ([id number])[facility] ([facility])[address] [place] [address] Erythrocyte distribution width (RBC) [Ratio] 14.7 % Normal 11.5-15.0 [facility] Comment on above: Performed By: #### L [id number] ####Maint Mechanic: AMAN TOM ([id number])[facility] ([address] Hematocrit (Bld) [Volume fraction] 32.4 % Low 35.0-47.0 [facility] Comment on above: Performed By: #### L [id number] ####Maint Mechanic: AMAN MEDINAANGELA ([id number])[facility] ([address] Hemoglobin (Bld) [Mass/Vol] 10.4 g/dL Low 11.7-16.0 [facility] Comment on above: Performed By: #### L [id number] ####Maint Mechanic: AMAN HEARDOMID ([id number])[facility] ([facility])[address] [place] [address] IMMATURE GRANS % 0.3 % Normal 0.0-2.0 [facility] Comment on above: Performed By: #### L [id number] ####Maint Mechanic: AMAN HEARDOMID ([id number])[facility] ([facility])[address] [place] [address] IMMATURE GRANS ABSOLUTE 0.0 10*3/uL Normal <0.1 [facility] Comment on above: Performed By: #### L [id number] ####Maint Mechanic: AMANAGA SANTOS ([id number])[facility] ([facility])[address] [place] [address] Lymphocytes (Bld) [#/Vol] 1.2 10*3/uL Normal 1.0-4.3 [facility] Comment on above: Performed By: #### L [id number] ####Maint Mechanic: AMANAGA SANTOS ([id number])[facility] ([facility])[address] [place] [address] Lymphocytes/100 WBC (Bld) 12.9 % Low 15.0-45.0 [facility] Comment on above: Performed By: #### L [id number] ####Maint Mechanic: AMAN SANTOS ([id number])[facility] ([facility])[address] [place] [address] MCH (RBC) [Entitic mass] 28.6 pg Normal 26.0-34.0 [facility] Comment on above: Performed By: #### L [id number] ####Maint Mechanic: AMANAGA SANTOS ([id number])[facility] ([facility])[address] [place] [address] MCHC 32.1 % Normal 30.5-36.0 [facility] Comment on above: Performed By: #### L [id number] ####Maint Mechanic: AMAN TOM ([id number])[facility] ([facility])[address] [place] [address] MCV (RBC) [Entitic vol] 89.0 fL Normal 77.0-99.0 [facility] Comment on above: Performed By: #### L [id number] ####Maint Mechanic: AMANAGA SANTOS ([id number])[facility] ([facility])[address] [place] [address] Monocytes (Bld) [#/Vol] 2.2 10*3/uL High 0.0-0.9 [facility] Comment on above: Performed By: #### L [id number] ####Maint Mechanic: AMAN SANTOS ([id number])[facility] ([facility])[address] [place] [address] Monocytes/100 WBC (Bld) 22.9 % High 5.0-13.0 [facility] Comment on above: Performed By: #### L [id number] ####Maint Mechanic: AMAN SANTOS ([id number])[facility] ([facility])[address] [place] [address] NEUTROPHILS ABSOLUTE 6.1 10*3/uL Normal 1.8-7.5 [facility] Comment on above: Performed By: #### L [id number] ####Maint Mechanic: AMAN SANTOS ([id number])[facility] ([facility])[address] [place] [address] Neutrophils/100 WBC (Bld) 63.5 % Normal 38.0-82.0 [facility] Comment on above: Performed By: #### L [id number] ####Maint Mechanic: AMAN SANTOS ([id number])[facility] ([facility])[address] [place] [address] NRBC 0.0 /100 WBCs Normal 0.0-2.0 [facility] Comment on above: Performed By: #### L [id number] ####Maint Mechanic: AMAN SANTOS ([id number])[facility] ([facility])[address] [place] [address] Platelet mean volume (Bld) [Entitic vol] 12.0 fL Normal 9.0-12.7 [facility] Comment on above: Result Comment: MPV is a calculated measurement using platelet volume ratio Performed By: #### L [id number] ####Maint Mechanic: AMAN SANTOS ([id number])[facility] ([facility])[address] [place] [address] Platelets (Bld) [#/Vol] 102 10*3/uL Low 140-440 [facility] Comment on above: Performed By: #### L [id number] ####Maint Mechanic: AMAN SANTOS ([id number])[facility] ([facility])[address] [place] [address] RBC (Bld) [#/Vol] 3.64 10*6/uL Low 3.80-5.20 [facility] Comment on above: Performed By: #### L [id number] ####Maint Mechanic: AMAN SANTOS ([id number])[facility] ([facility])[address] [place] [address] WBC (Bld) [#/Vol] 9.6 10*3/uL Normal 3.6-10.7 [facility] Comment on above: Performed By: #### L [id number] ####Maint Mechanic: AMAN SANTOS ([id number])[facility] ([facility])[address] [place] [address] Cobalamin (Vitamin B12) [Mas s/Vol]on 11-09-2024 Interpretation and review of laboratory results Abnormal [facility] Comprehensive metabolic 2000 panelon 11-09-2024 Albumin [Mass/Vol] 4.5 g/dL 3.3 - 5.5 g/dL [facility] ALP [Catalytic activity/Vol] 82 U/L 42 - 141 U/L [facility] ALT [Catalytic activity/Vol] 22 U/L 10 - 47 U/L [facility] Anion gap [Moles/Vol] 15 mmol/L High -4.00 - 12.00 mmol/L [facility] AST [Catalytic activity/Vol] 21 U/L 11 - 38 U/L [facility] Bilirubin [Mass/Vol] 1.1 mg/dL 0.2 - 1 .6 mg/dL [facility] Calcium [Mass/Vol] 10.6 mg/dL High 8.0 - 10. 3 mg/dL [facility] Chloride [Moles/Vol] 104 mmol/L [facility] CO2 [Moles/Vol] 28 mmol/L [facility] GFR/1.73 sq M.predicted MDRD (S/P/Bld) [Vol rate/Area] 67.6 mL/min/{1.73_m2} - PINF [facility] Glucose [Mass/Vol] 94 mg/dL 73 - 118 mg/dL [facility] Interpretation and review of laboratory results Abnormal [facility] Potassium [Moles/Vol] 4.6 mmol/L [facility] Protein [Mass/Vol] 6.9 g/dL 6.4 - 8.1 g/dL [facility] Sodium [Moles/Vol] 147 mmol/L High [facility] Urea nitrogen [Mass/Vol] 23 mg/dL High 7 - 22 mg/dL [facility] Urea nitrogen/Creatinine [Mass ratio] 0.9 mg/dL 0.6 - 1.2 mg/dL [facility] FERRITINon 11-09-2024 Ferritin [Mass/Vol] 147 ng/mL Normal 5-204 [facility] Comment on above: Result Comment: LEOBARDO Gill COMMENTS:Ferritin levels below 10 ng/mL have been reported as indicative of iron deficiency anemia. Performed By: #### L [id number], LAB69, LAB67, [id number] ####Maint Mechanic: VIVIAN PANTOJA ([id number])[address] FOLATEon 11-09-2024 FOLATE RESULT 17.1 ng/mL Normal 7.0-31.4 [facility] Comment on above: Performed By: #### L AB68, LAB69, LAB67, [id number] ####Maint Mechanic: VIVIAN PANTOJA ([id number])[address] Ferritin [Mass/Vol]on 2024 Interpretation and review of laboratory results Normal [facility] Ferritin levels belo w 10 ng/mL have been reported as indicative of iron deficiency anemia. [facility] Folate [Mass/Vol]on 11-10-19 Interpretation and review of laboratory results Normal [facility] IG CONCENTRATION, BLOOD (IMM UNOFIXATION ELECTROPHORESIS)on 11-09-2024 IGA, BLOOD 164 mg/dL Normal 85-600 [facility] Comment on above: Performed By: #### L [id number], [id number] ####Maint Mechanic: VIVIAN PANTOJA ([phone])[facility])[address] [place] [address] IGG, BLOOD 514 mg/dL Low 540-1722 [facility] Comment on above: Performed By: #### L [id number], [id number] ####Maint Mechanic: VIVIAN PANTOJA ([id number])[facility] ([facility])[address] [place] [address] IGM, BLOOD 92 mg/dL Normal 25-265 [facility] Comment on above: Performed By: #### L [id number], [id number] ####Maint Mechanic: VIVIAN PANTOJA ([id number])[facility] ([facility])[address] [place] [address] IMMUNOFIXATION ELECTROPHORES Nick 11-09-2024 IMMUNOFIXATION ELECTROPHORESIS See Below Normal [facility] Comment on above: Performed By: #### L [id number], [id number] ####Maint Mechanic: VIVIAN PANTOJA ([id number])[facility] ([facility])[address] [place] [address] IRON AND TIBCon 11-09-2024 IRON BINDING CAPACITY 323 ug/dL Normal 250-450 [facility] Comment on above: Performed By: #### L [id number], [id number] ####Maint Mechanic: VIVIAN PANTOJA ([id number])[facility] ([facility])[address] [place] [address] IRON SATURATION 20.4 % Normal 20.0-50.0 [facility] Comment on above: Performed By: #### L [id number], [id number] ####Maint Mechanic: VIVIAN PANTOJA ([phone])[facility] ([facility])[address] [place] [address] IRON, TOTAL 66 ug/dL Normal 50-170 [facility] Comment on above: Performed By: #### L [id number], [id number] ####Maint Mechanic: VIVIAN PANTOJA ([phone])[facility] ([facility])[address] [place] [address] [place] Iron and Iron binding capaci ty panelon 11-09-2024 Interpretation and review of laboratory results Normal [facility] Iron [Mass/Vol] 66 ug/dL 50 - 170 ug/dL [facility] Iron binding capacity [Mass/Vol] 323 ug/dL 250 - 450 ug/dL [facility] Iron saturation [Mass fraction] 20.4 % 20.0 - 50.0 % [facility] K/L QNT FREE LIGHT CHAINS WI TH RATIO (BKR QUEST)on 11-09-2024 QUEST KAPPA LIGHT CHAIN, FREE, SERUM 13.2 mg/L Normal 3.3-19.4 [facility] Comment on above: Performed By: #### L [id number] ####[facility] ([place]erm[facility])[address] [place], [place] [facility] QUEST KAPPA/LAMBDA LIGHT CHAINS FREE WITH RATIO, SERUM 0.99 Normal 0.26-1.65 [facility] Comment on above: Result Comment: Free [...] response totherapy of these disorders.Test Performed by [employer] [facility],[address] [place] [id number] Brown M.D., Ph.D., Director of [phone], [facility] [id number] Performed By: #### L [id number] ####[facility] ([place]erm[place])[address] [place], [place] [facility] LAMBDA LIGHT CHAIN, FREE, SERUM 13.4 mg/L Normal 5.7-26.3 [facility] Comment on above: Performed By: #### L [id number] ####[facility] ([place])[address] [place] [facility] Laboratory - Chemistry and C hemistry - challengeon 11-09-2024 Folate [Mass/Vol] 17.1 ng/mL 7.0 - 31.4 ng/mL [facility] Cobalamin (Vitamin B12) [Mass/Vol] 1620 pg/mL High 213 - 816 pg/mL [facility] Ferritin [Mass/Vol] 147 ng/mL 5 - 204 ng/mL [facility] IgA [Mass/Vol] 164 mg/dL 85 - 600 mg/dL [facility] IgG [Mass/Vol] 514 mg/dL Low 540 - 1722 mg/dL [facility] IgM [Mass/Vol] 92 mg/dL 25 - 265 mg/dL [facility] Protein [Mass/Vol] 7.2 g/dL 6.4 - 8.3 g/dL [facility] Comment on above: Serum protein values are higher than plasma values. Samples from recumbent persons are lower by up to 0.5 g/dL as compared to ambulatory persons. After 60 years values are lower by up to 0.2 g/dL. Laboratory - Coagulationon 0 11-09-2024 aPTT Coag (PPP) [Time] 35 s High 20.0 - 30.5 s [facility] INR Coag (PPP) [Relative time] 1.2 {INR} High 0.9 - 1.1 [facility] Comment on above: Recommended Anticoag ulant Therapy: [...] 12.3 s High 9.0 - 12.0 s [facility] No Panel Informationon 11-09 Interpretation and review of laboratory results Abnormal [facility] Interpretation and review of laboratory results Abnormal [facility] Interpretation and review of laboratory results Normal [facility] PROTIME AND APTTon aPTT Coag (Bld) [Time] 35.0 s High 20.0-30.5 [facility] Comment on above: Performed By: #### L [id number] ####Maint Mechanic: VIVIAN PANTOJA ([phone])[facility])[address] [place] [address] INR Coag (PPP) [Relative time] 1.2 {INR} High 0.9-1.1 [facility] Comment on above: Result Comment: Hong [...] prevent Myocardial Infarction Performed By: #### L [id number] ####Maint Mechanic: VIVIAN PANTOJA ([phone])[facility])[address] [place] [address] PT Coag (PPP) [Time] 12.3 s High 9.0-12.0 [facility] Comment on above: Performed By: #### L [id number] ####Maint Mechanic: VIVIAN PANTOJA ([id number])[facility])[address] [place] [address] Progress Noteon 11-09-2024 Progress Note ARRIVAL NOTE INFUSIO N Patient is here for lab draw Labs were drawn peripherally from LAC. Site benign and patient tolerated well. Gauze and coban applied. DC with family member without concern. Normal [facility] Progress Note Pt scheduled for bp check 11/27 Normal [facility] Progress Note Left message to retu rn call Please place call back to office to schedule BP Check Normal [facility] Progress Note We want to inform yo u that your patient's blood pressure was noted to be elevated in our office today. We thank you for trusting us with your patient's health. Last BP: BP Readings from Last 1 Encounters: 11/09/24 1412 (!) 140/63 11/09/24 1405 (!) 140/72 Normal [facility] Progress Note Normal [facility] SERUM ELECTROPHORESISon 10-14 Albumin [Mass/Vol] 4.8 g/dL Normal 3.1-4.8 [facility] Comment on above: Performed By: #### L [id number], [id number] ####Maint Mechanic: VIVIAN PANTOJA ([phone])[facility])[address] [place] [address] ALPHA 1 0.4 g/dL Normal 0.2-0.4 [facility] Comment on above: Performed By: #### L [id number], [id number] ####Maint Mechanic: VIVIAN PANTOJA ([id number])[facility])[address] [place] [address] ALPHA 2 0.7 g/dL Normal 0.6-1.0 [facility] Comment on above: Performed By: #### L [id number], [id number] ####Maint Mechanic: VIVIAN PANTOJA ([phone])[facility])[address] [place] [address] [place] BETA 1 0.5 g/dl Normal 0.3-0.6 [facility] Comment on above: Performed By: #### L [id number], [id number] ####Maint Mechanic: VIVIAN PANTOJA ([id number])[facility])[address] [place] [address] [place] BETA 2 0.3 g/dl Normal 0.3-0.5 [facility] Comment on above: Performed By: #### L [id number], [id number] ####Maint Mechanic: VIVIAN PANTOJA ([id number])[facility])[address] [place] [address] [place] GAMMA GLOBULIN 0.6 g/dL Normal 0.4-1.4 [facility] Comment on above: Performed By: #### L [id number], [id number] ####Maint Mechanic: VIVIAN PANTOJA ([phone])[facility])[address] [place] [address] [place] PROTEIN FRACTION (INTERPRETATION) IN SER/PLAS BY ELECTROPHORESIS See Below Normal [facility] Comment on above: Performed By: #### L [id number], [id number] ####Maint Mechanic: VIVIAN PANTOJA ([phone])[facility])[address] [place] [address] RELEASED BY Rachel Avery M.D., MPH Normal [facility] Comment on above: Result Comment: ORDE R COMMENTS:Questionable band present in the gamma region. The band has a concentration of 0.17 g/dL. Low total protein. See SHAHZAD for additional information. Performed By: #### L [id number], [id number] ####Maint Mechanic: VIVIAN PANTOJA ([phone])[facility])[address] [place] [address] Result Comment: ORDE R COMMENTS:A faint monoclonal IgG kappa protein cannot be excluded. Correlation with serum free light chains is recommended. REVIEWED BY Tracy Burgess MD [facility] Comment on above: Performed By: #### L [id number], [id number] ####Maint Mechanic: VIVIAN PANTOJA ([phone])[facility] ([facility])[address] [place] [address] TOTAL PROTEIN (SERUM PROTEIN ELECTROPHORESIS)on 11-09-2024 Protein [Mass/Vol] 7.2 g/dL Normal 6.4-8.3 [facility] Comment on above: Result Comment: Seru m protein values are higher than plasma values. Samples from recumbent persons are lower by up to 0.5 g/dL as compared to ambulatory persons. After 60 years values are lower by up to 0.2 g/dL. Performed By: #### L [id number], [id number], [id number], [id number] ####Maint Mechanic: VIVIAN PANTOJA ([phone])[facility])[address] [place] [address] VITAMIN B12on 11-09-2024 Cobalamin (Vitamin B12) [Mass/Vol] 1620 pg/mL High 213-816 [facility] Comment on above: Performed By: #### L AB68, LAB69, LAB67, [id number] ####Maint Mechanic: VIVIAN PANTOJA ([phone])[facility] ([facility])[address] [place], [place] [id number] [facility] 11-06-2024 36 Name of Caller: Joann porter Contact Reason for Appointment: Patient needs to RS new patient appointment that was scheduled for 11.07.24 Office Name: Oncology Medication Refills need, if any: NA Medication Name: NA [place] [address] 10-31-2024 36 Noted; thank you; ye s it is transthoracic, not transesophageal. [facility] 36 Daughter called, and she cancelled her Echocardiogram for today because she thought it was for a MARTY. I explained that this is a TTE not MARTY. Test is now scheduled at [facility] 11/20/24. [place] [address] 10-20-[address] 10-12-2024 [address] 10-11-2024 36 [facility] 36 [place] [address] 10-10-2024 36 Left message for Les lie to return call to the office. Normal [facility] 36 Normal [facility] 36 Patient missed her 08/23/24 appointment for an Echocardiogram. Called patient, and left message for call back. [place] [address] 10-09-[address] 10-02-2024 36 Order faxed [address] 09-29-2024 36 [facility] DBT Breast - bilateral scree melodygon [...] Electronically Signed Date/Time: 09/29/2024 8:19 AM EDT [facility] Patient Name: ALTA MOYA : 1950 Exam Date/Time: 09/28/2024 14:37 Procedure: BI MAMMOGRAM SCREENING TOMOSYNTHESIS BILATERAL Ordering Provider: IBARRA EUGENE Reason For Exam: This exam was performed at [facility] [address] [facility] [address] PATIENT CANCER HISTORY: No Personal History of Cancer FAMILY CANCER HISTORY: Paternal Grandmother Breast Cancer Image views: 2D Bilateral CC and MLO views were acquired. 3D Bilateral CC and MLO views were acquired. Images were reviewed with CAD. Markings on images: BB's = Nipples; skin lesions Open pyramid lake = Palpable Line = Scar COMPARISON: 08/02/2023, 07/24/2021, 11/27/2019 TISSUE DENSITY: BIRADS B - There are scattered areas of fibroglandular density. FINDINGS: No suspicious masses, architectural distortions or suspiciously clustered microcalcifications are identified. Postsurgical changes to the right breast remain stable. There is no evidence of skin thickening or nipple retraction. There are no significant changes when compared with prior studies. [facility] Amy Metzger MD - 09/29/2024 Patient Name: ALTA BAKER : 1950 Exam Date/Time: 09/28/2024 14:37 Procedure: BI MAMMOGRAM SCREENING TOMOSYNTHESIS BILATERAL Ordering Provider: IBARAR EUGENE Reason For Exam: This exam was performed at [facility] [address] [facility] [address] PATIENT CANCER HISTORY: No Personal History of Cancer FAMILY CANCER HISTORY: Paternal Grandmother Breast Cancer Image views: 2D Bilateral CC and MLO views were acquired. 3D Bilateral CC and MLO views were acquired. Images were reviewed with CAD. Markings on images: BB's = Nipples; skin lesions Open pyramid lake = Palpable Line = Scar COMPARISON: 08/02/2023, [...] Electronically Signed Date/Time: 09/29/2024 8:19 AM EDT [facility] DBT Breast - bilateral scree Diegordered By: Amy Metzger on 09-29-2024 [facility] Work Phone: DBT Breast - bilateral scree amena 09-28-2024 Radiology Study observation (narrative) [facility] 36on 09-25-2024 36 noted Normal [facility] 36on 09-22-2024 36 Normal [facility] 36 Demographics faxed. Normal [facility] 36 Normal [facility] 36 Order faxed . Normal [facility] 36 Normal [facility] 36on 09-21-2024 36 Normal [facility] 36on 09-12-2024 36 Spoke with patient a nd she will be here 09/19/24 @ 6:30 am. FYI [facility] 36 Left message for pat ient to return call to the office, please have pt arrive at 6:20 am. [facility] 09-11-2024 36 Name of Caller: Joann porter Contact Reason for Appointment: JAMIN, prefers Wednesday or Wednesday so daughter can come with her Office Name: [facility] Medication Refills need, if any: n/a Medication Name: n/a [facility] 3609-05-2024 36 Left message for pat ient to return call to the office, please go over med list with patient thanks, [facility] 09-04-2024 36 Please verify meliza valencia medication list is up to date [place] [id number] 36 [facility] 36 Called and spoke greg Milian. She is going to fax over patients hospital records for Dr. Ibarra to review. Please document once fax is received and placed with Dr. Ibarra [facility] 36 [facility] Absolute lymphocyte countOrd ered By: Jimbo Ibarra on 08-28-2024 Lymphocytes Auto (Unsp spec) [#/Vol] 0.69 10*3/uL Low 0.83-4.51 [facility] Absolute neutrophil countOrd ered By: Jimbo Ibarra on 08-28-2024 Neutrophils (Bld) [#/Vol] 9.3 10*3/uL High 2.0-7.7 [facility] Anion gap in Serum or Plasma Ordered By: Jimbo Ibarra on 08-28-2024 Anion gap [Moles/Vol] 9 mmol/L 5-15 [facility] Automated lymphocyte count a s percentage of total leukocytesOrdered By: Jimbo Ibarra on 08-28-2024 Lymphocytes/100 WBC Auto (Unsp spec) 5.9 % Low 19-41 [facility] BUN/creatinine ratioOrdered By: Jimbo Ibarra on 08-28-2024 Urea nitrogen/Creatinine [Mass ratio] 37.9 mg/mg High 10-20 [facility] Basic Metabolic Profile (BMP )on 08-28-2024 BUN/CRE 37.9 RATIO High 10-20 [facility] Comment on above: Performed By: #### M 100.638 #### [facility] [address] [place], [address] Calcium [Mass/Vol] 10.1 mg/dL Normal 7.6-11.0 [facility] Comment on above: Performed By: #### M 100.638 #### [facility] [address] [place], [address] Chloride [Moles/Vol] 99 mmol/L Normal 98-108 [facility] Comment on above: Performed By: #### M 100.638 #### [facility] [address] [place], [address] CO2 [Moles/Vol] 37.3 mmol/L High 21.0-32.0 [facility] Comment on above: Performed By: #### M 100.638 #### [facility] [address] [place], [address] Creatinine [Mass/Vol] 0.71 mg/dL Normal 0.70-1.20 [facility] Comment on above: Performed By: #### M 100.638 #### [facility] [address] [place], [address] ECRCL 64.48 ml/min Normal 50-250 [facility] Comment on above: Performed By: #### M 100.638 #### [facility] [address] [place], [address] GAP 9 Normal 5-15 [facility] Comment on above: Performed By: #### M 100.638 #### [facility] [address] [place], [address] GFR/1.73 sq M.predicted among non-blacks MDRD (S/P/Bld) [Vol rate/Area] 90 mL/min/{1.73_m2} Normal >60 [facility] Comment on above: Result Comment: mL/m in/1.73m2 CKD-EPI Creatinine Equation (2020) Performed By: #### M 100.638 #### [facility] [address] [place], [address] Glucose [Mass/Vol] 141 mg/dL High 70-99 [facility] Comment on above: Performed By: #### M 100.638 #### [facility] [address] [place], [address] Potassium [Moles/Vol] 4.2 mmol/L Normal 3.3-5.1 [facility] Comment on above: Performed By: #### M 100.638 #### [facility] [address] [place], [address] Sodium [Moles/Vol] 145 mmol/L Normal 133-145 [facility] Comment on above: Performed By: #### M 100.638 #### [facility] [address] [place], [address] Urea nitrogen [Mass/Vol] 27 mg/dL High 4-19 [facility] Comment on above: Performed By: #### M 100.638 #### [facility] [address] [place], [address] Basophil percentageOrdered B y: Jimbolola Ibarra on 08-28-2024 Basophils/100 WBC (Bld) 0.2 % 0-1 [facility] CBC W/Diff, Automatedon 08-13 Absolute Lymph 0.69 X10 3/uL Low 0.83-4.51 [facility] Comment on above: Performed By: #### M 100.638 #### [facility] [address] [place], [address] Absolute Neut 9.3 X10 3/uL High 2.0-7.7 [facility] Comment on above: Performed By: #### M 100.638 #### [facility] [address] [place], [address] Basophils/100 WBC (Bld) 0.2 % Normal 0-1 [facility] Comment on above: Performed By: #### M 100.638 #### [facility] [address] [place], [address] Eosinophils/100 WBC (Bld) 0.0 % Normal 0-5 [facility] Comment on above: Performed By: #### M 100.638 #### [facility] [address] [place], [address] Erythrocyte distribution width (RBC) [Ratio] 14.6 % Normal 11.6-14.6 [facility] Comment on above: Performed By: #### M 100.638 #### [facility] [address] [place], [address] Hematocrit (Bld) [Volume fraction] 28.9 % Low 37-47 [facility] Comment on above: Performed By: #### M 100.638 #### [facility] [address] [place], [address] Hemoglobin (Bld) [Mass/Vol] 8.7 g/dL Low 12.0-15.0 [facility] Comment on above: Performed By: #### M 100.638 #### [facility] [address] [place], [address] IG% 3.800 High 0.0-0.9 [facility] Comment on above: Result Comment: IG% - Immature Granulocytes (promyelocytes, myelocytes and metamyelocytes) > 1% indicates that a LEFT SHIFT is Present. Performed By: #### M 100.638 #### [facility] [address] [place], [address] Lymphocytes/100 WBC (Bld) 5.9 % Low 19-41 [facility] Comment on above: Performed By: #### M 100.638 #### [facility] [address] [place], [address] MCH (RBC) [Entitic mass] 27.6 pg Normal 27.0-32.0 [facility] Comment on above: Performed By: #### M 100.638 #### [facility] [address] [place], [address] MCHC (RBC) [Mass/Vol] 30.1 g/dL Low 32-36 [facility] Comment on above: Performed By: #### M 100.638 #### [facility] [address] [place], [address] MCV (RBC) [Entitic vol] 91.7 fL Normal 81-99 [facility] Comment on above: Performed By: #### M 100.638 #### [facility] [address] [place], [address] Monocytes/100 WBC (Bld) 10.8 % High 0-10 [facility] Comment on above: Performed By: #### M 100.638 #### [facility] [address] [place], [address] Neutrophils/100 WBC (Bld) 79.3 % High 47-70 [facility] Comment on above: Performed By: #### M 100.638 #### [facility] [address] [place], [address] Nucleated RBC (Bld) [#/Vol] 0 10*3/uL Normal 0-5 [facility] Comment on above: Performed By: #### M 100.638 #### [facility] [address] [place], [address] Platelet mean volume (Bld) [Entitic vol] 13.0 fL High 6.2-12.0 [facility] Comment on above: Performed By: #### M 100.638 #### [facility] [address] [place], [address] Platelets (Bld) [#/Vol] 94 10*3/uL Low 150-450 [facility] Comment on above: Performed By: #### M 100.638 #### [facility] [address] [place], [address] RBC (Bld) [#/Vol] 3.15 10*6/uL Low 4.2-5.4 [facility] Comment on above: Performed By: #### M 100.638 #### [facility] [address] [place], [address] RDW SD 48.2 fl High 35.1-43.9 [facility] Comment on above: Performed By: #### M 100.638 #### [facility] [address] [place], [address] WBC (Bld) [#/Vol] 11.7 10*3/uL High 4.4-11.0 [facility] Comment on above: Performed By: #### M 100.638 #### [facility] [address] [place], [address] Carbon dioxide, total [Moles /volume] in Central venous bloodOrdered By: Jimbo Ibarra on 08-28-2024 CO2 [Moles/Vol] 37.3 mmol/L High 21.0-32.0 [facility] Chloride assayOrdered By: Bindu Ibarra on 08-28-2024 Chloride [Moles/Vol] 99 mmol/L 98-108 [facility] Discharge Instructionon 08-13 Discharge Instruction [facility] [address] [place] [address] Instructions for Home/Discharge Instructions 08/28/24 1002 MR#: [id number] Acct: [id number] Name: ALTA BAKER Rep #: [id number] : 1950 74 From: Jimbo Ibarra MD [...] DO; Dr. Jemima Poe DO Signed Normal [facility] Eosinophil percentageOrdered By: Jimbo Ibarra on 08-28-2024 Eosinophils/100 WBC (Bld) 0.0 % 0-5 [facility] Erythrocyte distribution wid th ratioOrdered By: Jimbo Ibarra on 08-28-2024 Erythrocyte distribution width (RBC) [Ratio] 14.6 % 11.6-14.6 [facility] Erythrocyte distribution wid th standard deviationOrdered By: Jimbo Ibarra on 08-28-2024 Erythrocyte distribution width (RBC) [Ratio] 48.2 fl High 35.1-43.9 [facility] Glomerular filtration rate ( GFR) estimation/1.73 sq m using serum, plasma, or whole bOrdered By: Jimbo Ibarra on 08-28-2024 GFR/1.73 sq M.predicted among non-blacks MDRD (S/P/Bld) [Vol rate/Area] 90 mL/min/{1.73_m2} >60 [facility] Comment on above: mL/min/1.73m2 CKD-EP I Creatinine Equation (2020) Hematocrit Auto (Bld) [Volum e fraction]Ordered By: Jimbo Ibarra on 08-28-2024 Hematocrit (Bld) [Volume fraction] 28.9 % Low 37-47 [facility] Hemoglobin measurementOrdere d By: Jimbo Ibarra on 08-28-2024 Hemoglobin (Bld) [Mass/Vol] 8.7 g/dL Low 12.0-15.0 [facility] Immature granulocytes/100 WB C Auto (Bld)Ordered By: Jimbo Ibarra on 08-28-2024 Immature granulocytes/100 WBC (Bld) 3.800 % High 0.0-0.9 [facility] Comment on above: IG% - Immature Granu locytes (promyelocytes, myelocytes and metamyelocytes) > 1% indicates that a LEFT SHIFT is Present. MCV (mean corpuscular volume ) determinationOrdered By: Jimbo Ibarra on 08-28-2024 MCV (RBC) [Entitic vol] 91.7 fL 81-99 [facility] Mean corpuscular hemoglobin (MCH) determinationOrdered By: Jimbo Ibarra on 08-28-2024 MCH (RBC) [Entitic mass] 27.6 pg 27.0-32.0 [facility] Mean corpuscular hemoglobin concentration (MCHC) determinationOrdered By: Jimbo Ibarra on 08-28-2024 MCHC (RBC) [Mass/Vol] 30.1 g/dL Low 32-36 [facility] Mean platelet volume determi nationOrdered By: Jimbo Ibarra on 08-28-2024 Platelet mean volume (Bld) [Entitic vol] 13.0 fL High 6.2-12.0 [facility] Monocyte percentageOrdered B y: Jimbo Ibarra on 08-28-2024 Monocytes/100 WBC (Bld) 10.8 % High 0-10 [facility] Neutrophil percentageOrdered By: Jimbo Ibarra on 08-28-2024 Neutrophils/100 WBC (Bld) 79.3 % High 47-70 [facility] Nucleated red blood cell per centageOrdered By: Jimbo Ibarra on 08-28-2024 Nucleated RBC/100 WBC (Bld) [Ratio] 0 % 0-5 [facility] Platelet countOrdered By: Bindu Ibarra on 08-28-2024 Platelets (Bld) [#/Vol] 94 10*3/uL Low 150-450 [facility] Potassium measurement (mass/ volume)Ordered By: Jimbo Ibarra on 08-28-2024 Potassium (Unsp spec) [Mass/Vol] 4.2 mmol/L 3.3-5.1 [facility] RBC Auto (Bld) [#/Vol]Ordere d By: Jimbo Ibarra on 08-28-2024 RBC (Bld) [#/Vol] 3.15 10*6/uL Low 4.2-5.4 [facility] Serum creatinine measurement (mass/volume)Ordered By: Jimbo Ibarra on 08-28-2024 Creatinine [Mass/Vol] 0.71 mg/dL 0.70-1.20 [facility] Serum glucose measurement (m ass/volume)Ordered By: Jimbo Ibarra on 08-28-2024 Glucose [Mass/Vol] 141 mg/dL High 70-99 [facility] Serum or plasma calcium betzaida urement (mass/volume)Ordered By: Jimbo Ibarra on 08-28-2024 Calcium [Mass/Vol] 10.1 mg/dL 7.6-11.0 [facility] Serum or plasma urea nitroge n measurement (mass/volume)Ordered By: Jimbo Ibarra on 08-28-2024 Urea nitrogen [Mass/Vol] 27 mg/dL High 4-19 [facility] Sodium levelOrdered By: David Ibarra on 08-28-2024 Sodium [Moles/Vol] 145 mmol/L 133-145 [facility] White blood cell (WBC) count Ordered By: Jimbo Ibarra on 08-28-2024 WBC (Bld) [#/Vol] 11.7 10*3/uL High 4.4-11.0 [facility] Basic Metabolic Profile (BMP )on 08-27-2024 BUN/CRE 39.8 RATIO High 10-20 [facility] Comment on above: Performed By: #### M 100.678 #### [facility] [address] [place], [address] Calcium [Mass/Vol] 10.1 mg/dL Normal 7.6-11.0 [facility] Comment on above: Performed By: #### M 100.678 #### [facility] [address] [place], [address] Chloride [Moles/Vol] 100 mmol/L Normal 98-108 [facility] Comment on above: Performed By: #### M 100.678 #### [facility] [address] [place], [address] CO2 [Moles/Vol] 31.8 mmol/L Normal 21.0-32.0 [facility] Comment on above: Performed By: #### M 100.678 #### [facility] [address] [place], [address] Creatinine [Mass/Vol] 0.72 mg/dL Normal 0.70-1.20 [facility] Comment on above: Performed By: #### M 100.678 #### [facility] [address] [place], [address] ECRCL 65.20 ml/min Normal 50-250 [facility] Comment on above: Performed By: #### M 100.678 #### [facility] [address] [place], [address] GAP 10 Normal 5-15 [facility] Comment on above: Performed By: #### M 100.678 #### [facility] [address] [place], [address] GFR/1.73 sq M.predicted among non-blacks MDRD (S/P/Bld) [Vol rate/Area] 88 mL/min/{1.73_m2} Normal >60 [facility] Comment on above: Result Comment: mL/m in/1.73m2 CKD-EPI Creatinine Equation (2020) Performed By: #### M 100.678 #### [facility] [address] [place], [address] Glucose [Mass/Vol] 142 mg/dL High 70-99 [facility] Comment on above: Performed By: #### M 100.678 #### [facility] [address] [place], [address] Potassium [Moles/Vol] 4.5 mmol/L Normal 3.3-5.1 [facility] Comment on above: Result Comment: Hemo lysis present, Results??could be affected. ?? Performed By: #### M 100.678 #### [facility] [address] [place], [address] Sodium [Moles/Vol] 142 mmol/L Normal 133-145 [facility] Comment on above: Performed By: #### M 100.678 #### [facility] [address] [place], [address] Urea nitrogen [Mass/Vol] 29 mg/dL High 4-19 [facility] Comment on above: Performed By: #### M 100.678 #### [facility] [address] [place], [address] Blood manual differential co mment interpretation (narrative result)Ordered By: Jimbo Ibarra on 08-27-2024 Manual differential comment Willis (Bld) [Interp] SCANNED [facility] CBC W/Diff, Automatedon 08-13 SMEAR COMMENT SCANNED Normal [facility] Comment on above: Performed By: #### M 100.638 #### [facility] [address] [place], [address] Basic Metabolic Profile (BMP )on 08-26-2024 BUN/CRE 36.3 RATIO High 10-20 [facility] Comment on above: Performed By: #### M 100.678 #### [facility] [address] [place], [address] Calcium [Mass/Vol] 10.2 mg/dL Normal 7.6-11.0 [facility] Comment on above: Performed By: #### M 100.678 #### [facility] [address] [place], [address] Chloride [Moles/Vol] 101 mmol/L Normal 98-108 [facility] Comment on above: Performed By: #### M 100.678 #### [facility] [address] [place], [address] CO2 [Moles/Vol] 31.6 mmol/L Normal 21.0-32.0 [facility] Comment on above: Performed By: #### M 100.678 #### [facility] [address] [place], [address] Creatinine [Mass/Vol] 0.84 mg/dL Normal 0.70-1.20 [facility] Comment on above: Performed By: #### M 100.678 #### [facility] [address] [place], [address] ECRCL 62.17 ml/min Normal 50-250 [facility] Comment on above: Performed By: #### M 100.678 #### [facility] [address] [place], [address] GAP 9 Normal 5-15 [facility] Comment on above: Performed By: #### M 100.678 #### [facility] [address] [place], [address] GFR/1.73 sq M.predicted among non-blacks MDRD (S/P/Bld) [Vol rate/Area] 73 mL/min/{1.73_m2} Normal >60 [facility] Comment on above: Result Comment: mL/m in/1.73m2 CKD-EPI Creatinine Equation (2020) Performed By: #### M 100.678 #### [facility] [address] [place], [address] Glucose [Mass/Vol] 139 mg/dL High 70-99 [facility] Comment on above: Performed By: #### M 100.678 #### [facility] [address] [place], [address] Potassium [Moles/Vol] 4.9 mmol/L Normal 3.3-5.1 [facility] Comment on above: Performed By: #### M 100.678 #### [facility] [address] [place], [address] Sodium [Moles/Vol] 142 mmol/L Normal 133-145 [facility] Comment on above: Performed By: #### M 100.678 #### [facility] [address] [place], [address] Urea nitrogen [Mass/Vol] 31 mg/dL High 4-19 [facility] Comment on above: Performed By: #### M 100.678 #### [facility] [address] [place], [address] CBC W/Diff, Automatedon 06-03 18-2024 Absolute Lymph 0.66 X10 3/uL Low 0.83-4.51 [facility] Comment on above: Performed By: #### M 100.678 #### [facility] [address] [place], [address] Absolute Neut 9.1 X10 3/uL High 2.0-7.7 [facility] Comment on above: Performed By: #### M 100.678 #### [facility] [address] [place], [address] Basophils/100 WBC (Bld) 0.2 % Normal 0-1 [facility] Comment on above: Performed By: #### M 100.678 #### [facility] [address] [place], [address] Eosinophils/100 WBC (Bld) 0.0 % Normal 0-5 [facility] Comment on above: Performed By: #### M 100.678 #### [facility] [address] [place], [address] Erythrocyte distribution width (RBC) [Ratio] 14.7 % High 11.6-14.6 [facility] Comment on above: Performed By: #### M 100.678 #### [facility] [address] [place], [address] Hematocrit (Bld) [Volume fraction] 28.5 % Low 37-47 [facility] Comment on above: Performed By: #### M 100.678 #### [facility] [address] [place], [address] Hemoglobin (Bld) [Mass/Vol] 8.7 g/dL Low 12.0-15.0 [facility] Comment on above: Performed By: #### M 100.678 #### [facility] [address] [place], [address] IG% 2.000 High 0.0-0.9 [facility] Comment on above: Result Comment: IG% - Immature Granulocytes (promyelocytes, myelocytes and metamyelocytes) > 1% indicates that a LEFT SHIFT is Present. Performed By: #### M 100.678 #### [facility] [address] [place], [address] Lymphocytes/100 WBC (Bld) 6.1 % Low 19-41 [facility] Comment on above: Performed By: #### M 100.678 #### [facility] [address] [place], [address] MCH (RBC) [Entitic mass] 28.2 pg Normal 27.0-32.0 [facility] Comment on above: Performed By: #### M 100.678 #### [facility] [address] [place], [address] MCHC (RBC) [Mass/Vol] 30.5 g/dL Low 32-36 [facility] Comment on above: Performed By: #### M 100.678 #### [facility] [address] [place], [address] MCV (RBC) [Entitic vol] 92.5 fL Normal 81-99 [facility] Comment on above: Performed By: #### M 100.678 #### [facility] [address] [place], [address] Monocytes/100 WBC (Bld) 8.1 % Normal 0-10 [facility] Comment on above: Performed By: #### M 100.678 #### [facility] [address] [place], [address] Neutrophils/100 WBC (Bld) 83.6 % High 47-70 [facility] Comment on above: Performed By: #### M 100.678 #### [facility] [address] [place], [address] Nucleated RBC (Bld) [#/Vol] 0 10*3/uL Normal 0-5 [facility] Comment on above: Performed By: #### M 100.678 #### [facility] [address] [place], [address] Platelet mean volume (Bld) [Entitic vol] 12.9 fL High 6.2-12.0 [facility] Comment on above: Performed By: #### M 100.678 #### [facility] [address] [place], [address] Platelets (Bld) [#/Vol] 88 10*3/uL Low 150-450 [facility] Comment on above: Performed By: #### M 100.678 #### [facility] [address] [place], [address] RBC (Bld) [#/Vol] 3.08 10*6/uL Low 4.2-5.4 [facility] Comment on above: Performed By: #### M 100.678 #### [facility] [address] [place], [address] RDW SD 49.5 fl High 35.1-43.9 [facility] Comment on above: Performed By: #### M 100.678 #### [facility] [address] [place], [address] WBC (Bld) [#/Vol] 10.9 10*3/uL Normal 4.4-11.0 [facility] Comment on above: Performed By: #### M 100.678 #### [facility] [address] [place], [address] Influenza virus A and B and SARS-CoV-2 (COVID-19) and Respiratory syncytial virus RNAOrdered By: Jemima Poe on 08-26-2024 SARS-CoV-2 (COVID-19) RNA STEPHANIE+probe Ql (Unsp spec) [facility] M100.678on 08-26-2024 M100.678 Comments: use curren t specimen SARS-CoV-2 (COVID 19) Negative INFLUENZA A Negative INFLUENZA B Negative RSV PCR Negative Normal [facility] Comment on above: Performed By: #### L 500.2500, L100.0100, L501.5425, L503.6620 #### [facility] [address] [place], [address] Magnesiumon 08-26-2024 Magnesium [Mass/Vol] 2.2 mg/dL Normal 1.5-2.2 [facility] Comment on above: Performed By: #### M 100.638 #### [facility] [address] [place], [address] Magnesium measurement (mass/ volume)Ordered By: Jimbo Ibarra on 08-26-2024 Magnesium (Unsp spec) [Mass/Vol] 2.2 mg/dL 1.5-2.2 [facility] 36on 08-25-2024 36 Note faxed Normal [facility] SHS Bilirubin, totalOrdered By: Jemima Poe on 08-25-2024 Bilirubin [Mass/Vol] 0.79 mg/dL 0.00-1.30 [facility] CBC W/Diff, Automatedon 08-13 Absolute Lymph 0.75 X10 3/uL Low 0.83-4.51 [facility] Comment on above: Performed By: #### M 100.678 #### [facility] [address] [place], [address] Absolute Neut 11.1 X10 3/uL High 2.0-7.7 [facility] Comment on above: Performed By: #### M 100.678 #### [facility] [address] [place], [address] Basophils/100 WBC (Bld) 0.1 % Normal 0-1 [facility] Comment on above: Performed By: #### M 100.678 #### [facility] [address] [place], [address] Eosinophils/100 WBC (Bld) 0.0 % Normal 0-5 [facility] Comment on above: Performed By: #### M 100.678 #### [facility] [address] [place], [address] Erythrocyte distribution width (RBC) [Ratio] 14.8 % High 11.6-14.6 [facility] Comment on above: Performed By: #### M 100.678 #### [facility] [address] [place], [address] Hematocrit (Bld) [Volume fraction] 31.3 % Low 37-47 [facility] Comment on above: Performed By: #### M 100.678 #### [facility] [address] [place], [address] Hemoglobin (Bld) [Mass/Vol] 9.5 g/dL Low 12.0-15.0 [facility] Comment on above: Performed By: #### M 100.678 #### [facility] [address] [place], [address] IG% 1.300 High 0.0-0.9 [facility] Comment on above: Result Comment: IG% - Immature Granulocytes (promyelocytes, myelocytes and metamyelocytes) > 1% indicates that a LEFT SHIFT is Present. Performed By: #### M 100.678 #### [facility] [address] [place], [address] Lymphocytes/100 WBC (Bld) 6.0 % Low 19-41 [facility] Comment on above: Performed By: #### M 100.678 #### [facility] [address] [place], [address] MCH (RBC) [Entitic mass] 28.2 pg Normal 27.0-32.0 [facility] Comment on above: Performed By: #### M 100.678 #### [facility] [address] [place], [address] MCHC (RBC) [Mass/Vol] 30.4 g/dL Low 32-36 [facility] Comment on above: Performed By: #### M 100.678 #### [facility] [address] [place], [address] MCV (RBC) [Entitic vol] 92.9 fL Normal 81-99 [facility] Comment on above: Performed By: #### M 100.678 #### [facility] [address] [place], [address] Monocytes/100 WBC (Bld) 3.5 % Normal 0-10 [facility] Comment on above: Performed By: #### M 100.678 #### [facility] [address] [place], [address] Neutrophils/100 WBC (Bld) 89.1 % High 47-70 [facility] Comment on above: Performed By: #### M 100.678 #### [facility] [address] [place], [address] Nucleated RBC (Bld) [#/Vol] 0 10*3/uL Normal 0-5 [facility] Comment on above: Performed By: #### M 100.678 #### [facility] [address] [place], [address] Platelet mean volume (Bld) [Entitic vol] 13.2 fL High 6.2-12.0 [facility] Comment on above: Performed By: #### M 100.678 #### [facility] [address] [place], [address] Platelets (Bld) [#/Vol] 88 10*3/uL Low 150-450 [facility] Comment on above: Performed By: #### M 100.678 #### [facility] [address] [place], [address] RBC (Bld) [#/Vol] 3.37 10*6/uL Low 4.2-5.4 [facility] Comment on above: Performed By: #### M 100.678 #### [facility] [address] [place], [address] RDW SD 50.0 fl High 35.1-43.9 [facility] Comment on above: Performed By: #### M 100.678 #### [facility] [address] [place], [address] WBC (Bld) [#/Vol] 12.4 10*3/uL High 4.4-11.0 [facility] Comment on above: Performed By: #### M 100.678 #### [facility] [address] [place], [address] Comprehensive Metabolic Prof [facility] 08-25-2024 Albumin [Mass/Vol] 4.4 g/dL Normal 3.4-4.8 [facility] Comment on above: Performed By: #### M 100.678 #### [facility] [address] [place], [address] Albumin/Globulin [Mass ratio] 1.9 {ratio} Normal 0.9-2.4 [facility] Comment on above: Performed By: #### M 100.678 #### [facility] [address] [place], [address] ALK PHOS 92 U/L Normal 35-104 [facility] Comment on above: Performed By: #### M 100.678 #### [facility] [address] [place], [address] ALT [Catalytic activity/Vol] 11 U/L Normal <=34 [facility] Comment on above: Performed By: #### M 100.678 #### [facility] [address] [place], [address] AST [Catalytic activity/Vol] 16 U/L Normal <=31 [facility] Comment on above: Result Comment: Hemo lysis present, Results??could be affected. ?? Performed By: #### M 100.678 #### [facility] [address] [place], [address] Bilirubin [Mass/Vol] 0.79 mg/dL Normal 0.00-1.30 [facility] Comment on above: Performed By: #### M 100.678 #### [facility] [address] [place], [address] BUN/CRE 26.3 RATIO High 10-20 [facility] Comment on above: Performed By: #### M 100.678 #### [facility] [address] [place], [address] Calcium [Mass/Vol] 10.0 mg/dL Normal 7.6-11.0 [facility] Comment on above: Performed By: #### M 100.678 #### [facility] [address] [place], [address] Chloride [Moles/Vol] 102 mmol/L Normal 98-108 [facility] Comment on above: Performed By: #### M 100.678 #### [facility] [address] [place], [address] CO2 [Moles/Vol] 24.8 mmol/L Normal 21.0-32.0 [facility] Comment on above: Performed By: #### M 100.678 #### [facility] [address] [place], [address] Creatinine [Mass/Vol] 0.78 mg/dL Normal 0.70-1.20 [facility] Comment on above: Performed By: #### M 100.678 #### [facility] [address] [place], [address] ECRCL 65.27 ml/min Normal 50-250 [facility] Comment on above: Performed By: #### M 100.678 #### [facility] [address] [place], [address] GAP 16 High 5-15 [facility] Comment on above: Performed By: #### M 100.678 #### [facility] [address] [place], [address] GFR/1.73 sq M.predicted among non-blacks MDRD (S/P/Bld) [Vol rate/Area] 81 mL/min/{1.73_m2} Normal >60 [facility] Comment on above: Result Comment: mL/m in/1.73m2 CKD-EPI Creatinine Equation (2020) Performed By: #### M 100.678 #### [facility] [address] [place], [address] Globulin (S) [Mass/Vol] 2.4 g/dL Normal 2.2-4.2 [facility] Comment on above: Performed By: #### M 100.678 #### [facility] [address] [place], [address] Glucose [Mass/Vol] 160 mg/dL High 70-99 [facility] Comment on above: Performed By: #### M 100.678 #### [facility] [address] [place], [address] Potassium [Moles/Vol] 4.9 mmol/L Normal 3.3-5.1 [facility] Comment on above: Result Comment: Hemo lysis present, Results??could be affected. ?? Performed By: #### M 100.678 #### [facility] [address] [place], [place], [address] Sodium [Moles/Vol] 143 mmol/L Normal 133-145 [facility] Comment on above: Performed By: #### M 100.678 #### [facility] [address] [place], [place], [address] T PROT 6.7 g/dL Normal 5.9-8.4 [facility] Comment on above: Performed By: #### M 100.678 #### [facility] [address] [place], [place], [address] Urea nitrogen [Mass/Vol] 20 mg/dL High 4-19 [facility] Comment on above: Performed By: #### M 100.678 #### [facility] [address] [place], [place], [address] L499.0043on 08-25-2024 Trop T High Sen 15 ng/L High <=14 [facility] Comment on above: Performed By: #### M 100.638 #### [facility] [address] [place], [place], [address] Laboratory - Chemistry and C hemistry - challengeOrdered By: Jemima Poe on 08-25-2024 AST [Catalytic activity/Vol] 16 U/L <32 [facility] Comment on above: Hemolysis present, R esults could be affected. Lactic Acidon 08-25-2024 Lactate [Moles/Vol] 1.0 mmol/L Normal 0.0-2.0 [facility] Comment on above: Order Comment: Y Performed By: #### M 100.638 #### [facility] [address] [place], [place], [address] Legionella Antigen Urineon 0 08-25-2024 LEGU Comments: Only Recommended for severe cases of pneumonia Only Recommended for severe cases of pneumonia Legionella Ag, Urine Negative (See interpretation below) Normal [facility] Comment on above: Performed By: #### M 300.4500, M300.4600 #### [facility] [address] [place], [address] Magnesiumon 08-25-2024 Magnesium [Mass/Vol] 2.2 mg/dL Normal 1.5-2.2 [facility] Comment on above: Performed By: #### M 100.678 #### [facility] [address] [place], [address] Phosphoruson 08-25-2024 Phosphate [Mass/Vol] 4.1 mg/dL Normal 2.7-4.5 [facility] Comment on above: Performed By: #### M 100.678 #### [facility] [address] [place], [address] RESPIRATORY PANEL MOLECULARo n 08-25-2024 RP PANEL Copy of report sent to Infection Control Printer MS#[id number] 08/25/24 1054 [facility]. Normal Reference Range = Not Detected Resp [...] RSV B Not Detected PARAINFLUENZA 4 Normal [facility] Comment on above: Performed By: #### L 500.2500, L100.0100, L501.5425, L503.6620 #### [facility] [address] [place], [address] Respiratory pathogens detect ion panel by molecular detection methodOrdered By: Jemima Poe on 08-25-2024 Respiratory pathogens DNA and RNA panel STEPHANIE+probe (Resp) Parainfluenza 4 Abnormal [facility] Serum globulin measurementOr dered By: Jemima Poe on 08-25-2024 Globulin (S) [Mass/Vol] 2.4 g/dL 2.2-4.2 [facility] Serum or plasma alanine bradley otransferase (ALT) measurementOrdered By: Jemima Poe on 08-25-2024 ALT [Catalytic activity/Vol] 11 U/L <35 [facility] Serum or plasma albumin betzaida urement (mass/volume)Ordered By: Jemima Poe on 08-25-2024 Albumin [Mass/Vol] 4.4 g/dL 3.4-4.8 [facility] Serum or plasma albumin/glob ulin mass ratioOrdered By: Jemima Poe on 08-25-2024 Albumin/Globulin [Mass ratio] 1.9 {ratio} 0.9-2.4 [facility] Serum or plasma alkaline jose sphatase measurementOrdered By: Jemima Poe on 08-25-2024 ALP [Catalytic activity/Vol] 92 U/L 35-104 [facility] Strep pneumoniae Antig(UR,CS F)on 08-25-2024 STPAG Comments: Only Recommended for severe cases of pneumonia Strep pneumo Test Negative URINE (See interpretation below) Normal [facility] Comment on above: Performed By: #### M 300.4500, M300.4600 #### [facility] [address] [place], [place], [address] Total proteinOrdered By: Elysia Poe on 08-25-2024 Protein [Mass/Vol] 6.7 g/dL 5.9-8.4 [facility] Vitamin D,25 Hydroxyon 08-25 Vitamin D 25-OH 35.9 ng/mL Normal 30-100 [facility] Comment on above: Result Comment: Inez min D Status Deficiency: <20 ng/mL (50nmol/L) Insufficiency: 20-30 ng/mL (50-75 nmol/L) Sufficiency: 30-100 ng/mL (75-250 nmol/L) Toxicity: >100 ng/mL (>250 nmol/L) Performed By: #### M 300.4500, M300.4600 #### [facility] [address] [place], [address] 12 Lead EKGon 08-24-2024 12 Lead EKG [facility] [address] [place] [address] 12 Lead EKG 08/24/242010 MR#: [id number] Acct: [id number] Name: ALTA BAKER Rep #: [id number] : 1950 74 From: Jermaine Hagen MD Attending Dr: Dr. Jimbo Ibarra MD Status : DIS IN Ordering Dr: John Paul Harrison DO Date: 08/24/24 Location: [facility] Sex: F C Admitted: 08/24/24 Test Reason [...] found Confirmed by XIAO POLANCO, JERMAINE ([id number]), newspaper editor KELLIE RODRIGUEZ ([id number]) on 08/30/2024 7:28:43 AM Referred By: John Paul Harrison Confirmed By: JERMAINE HAGEN MD 08/30/24 0728 Date Jermaine Hagen MD CC: Dr. John Paul Harrison DO; Dr. Kory Ibarra DO; Dr. Jimbo Ibarra MD Signed [facility] 36on 08-24-2024 36 Normal [facility] 36 Left message for pat ient to return call to the office. Please release information to the patient. [facility] Absolute lymphocyte countOrd ered By: John Paul Harrison on 08-24-2024 Lymphocytes Auto (Unsp spec) [#/Vol] 1.59 10*3/uL 0.83-4.51 [facility] Absolute neutrophil countOrd ered By: John Paul Harrison on 08-24-2024 Neutrophils (Bld) [#/Vol] 10.1 10*3/uL High 2.0-7.7 [facility] Anion gap in Serum or Plasma Ordered By: John Paul Harrison on 08-24-2024 Anion gap [Moles/Vol] 10 mmol/L 5-15 [facility] Automated lymphocyte count a s percentage of total leukocytesOrdered By: John Paul Harrison on 08-24-2024 Lymphocytes/100 WBC Auto (Unsp spec) 9.7 % Low 19-41 [facility] BUN/creatinine ratioOrdered By: Jonh Paul Harrison on 08-24-2024 Urea nitrogen/Creatinine [Mass ratio] 26.2 mg/mg High 10-20 [facility] Basic Metabolic Profile (BMP )on 08-24-2024 BUN/CRE 26.2 RATIO High 10-20 [facility] Comment on above: Performed By: #### L 500.4050 #### [facility] [address] [place], [address] Calcium [Mass/Vol] 9.9 mg/dL Normal 7.6-11.0 [facility] Comment on above: Performed By: #### L 500.4050 #### [facility] [address] [place], [address] Chloride [Moles/Vol] 102 mmol/L Normal 98-108 [facility] Comment on above: Performed By: #### L 500.4050 #### [facility] [address] [place], [address] CO2 [Moles/Vol] 31.5 mmol/L Normal 21.0-32.0 [facility] Comment on above: Performed By: #### L 500.4050 #### [facility] [address] [place], [address] Creatinine [Mass/Vol] 0.72 mg/dL Normal 0.70-1.20 [facility] Comment on above: Performed By: #### L 500.4050 #### [facility] [address] [place], [address] ECRCL 65.67 ml/min Normal 50-250 [facility] Comment on above: Performed By: #### L 500.4050 #### [facility] [address] [place], [address] GAP 10 Normal 5-15 [facility] Comment on above: Performed By: #### L 500.4050 #### [facility] [address] [place], [address] GFR/1.73 sq M.predicted among non-blacks MDRD (S/P/Bld) [Vol rate/Area] 89 mL/min/{1.73_m2} Normal >60 [facility] Comment on above: Result Comment: mL/m in/1.73m2 CKD-EPI Creatinine Equation (2020) Performed By: #### L 500.4050 #### [facility] [address] [place], [address] Glucose [Mass/Vol] 89 mg/dL Normal 70-99 [facility] Comment on above: Performed By: #### L 500.4050 #### [facility] [address] [place], [address] Potassium [Moles/Vol] 4.7 mmol/L Normal 3.3-5.1 [facility] Comment on above: Result Comment: Hemo lysis present, Results??could be affected. ?? Performed By: #### L 500.4050 #### [facility] [address] [place], [address] Sodium [Moles/Vol] 143 mmol/L Normal 133-145 [facility] Comment on above: Performed By: #### L 500.4050 #### [facility] [address] [place], [address] Urea nitrogen [Mass/Vol] 19 mg/dL Normal 4-19 [facility] Comment on above: Performed By: #### L 500.4050 #### [facility] [address] [place], [place], [address] Basophil percentageOrdered B y: John Paul Harrison on 08-24-2024 Basophils/100 WBC (Bld) 0.2 % 0-1 [facility] Bilirubin Test strip Ql (U)O rdered By: John Paul Harrison on 08-24-2024 Bilirubin Ql (U) Negative Negative [facility] Blood manual differential co mment interpretation (narrative result)Ordered By: John Paul Harrison on 08-24-2024 Manual differential comment Willis (Bld) [Interp] SCANNED [facility] Comment on above: MONOCYTOSIS NOTED CBC W/Diff, Automatedon 08-13 PLT EST MOD DEC Normal ADEQ [facility] Comment on above: Performed By: #### M 100.678 #### [facility] [address] [place], [place], [address] SMEAR COMMENT SCANNED Normal [facility] Comment on above: Result Comment: MONO CYTOSIS NOTED Performed By: #### M 100.678 #### [facility] [address] [place], [place], [address] Carbon dioxide, total [Moles /volume] in Central venous bloodOrdered By: John Paul Harrison on 08-24-2024 CO2 [Moles/Vol] 31.5 mmol/L 21.0-32.0 [facility] Chest PA and Lateralon 08-24 Chest PA and Lateral [facility] [address] [place], [place] [address] Chest PA and Lateral MR#: [id number] Acct: [id number] Name: ALTA BAKER Vickie Rep #: [id number] : 1950 F 74 From: Milagros Madrid nd, MD PCP: Dr. Kory Ibarra, DO Status: REG ER Study: Chest PA and Lateral Date of Exam: 08/24/24 Exam# [id number] Ordering Dr: John Paul Harrison DO PROCEDURE: [...] reflect pneumonitis/pneumonia. Stable severe cardiomegaly. Reading Location: [id number] CC: Dr. John Paul Harrison DO; Dr. Kory Ibarra DO Developer Designer: Signed Normal [facility] Chest without Contraston Chest without Contrast [facility] [address] [place] [id number] Chest without Contrast MR#: [id number] Acct: [id number] Name: ALTA BAKER Rep #: [id number] : 1950 F 74 From: Kristina rowley MD PCP: Dr. Kory Ibarra DO Status: ADM IN Study: Chest without Contrast Date of Exam: 08/24/24 Exam# [id number] Ordering Dr: Jemima Poe DO PROCEDURE: CHEST [...] the hepatic contour, probably chronic. Reading Location: [place] [address] CC: Dr. Kory Ibarra DO; Dr. Jemima Poe DO Developer Designer: Signed Normal [facility] Chloride assayOrdered By: Pravin Harrison on 08-24-2024 Chloride [Moles/Vol] 102 mmol/L 98-108 [facility] Emergency Department Summary on 08-24-[address] [facility] Medical Records Department [address] [place] [address] Emergency Department Summary 08/24/24 MR#: [id number] Acct: [id number] Name: ALTA BAKER Rep #: [id number] : 1950 74 From: John Paul Harrison [...] Recent immobilization, Recent surgery or Recent travel [facility] Medical History Congestive heart failure (CHF) [...] bee ve (more content not included)... Normal [facility] Eosinophil percentageOrdered By: John Paul Harrison on 08-24-2024 Eosinophils/100 WBC (Bld) 0.2 % 0-5 [facility] Erythrocyte distribution wid th ratioOrdered By: John Paul Harrison on 08-24-2024 Erythrocyte distribution width (RBC) [Ratio] 14.9 % High 11.6-14.6 [facility] Erythrocyte distribution wid th standard deviationOrdered By: John Paul Harrison on 08-24-2024 Erythrocyte distribution width (RBC) [Ratio] 51.2 fl High 35.1-43.9 [facility] Glomerular filtration rate ( GFR) estimation/1.73 sq m using serum, plasma, or whole bOrdered By: John Paul Harrison on 08-24-2024 GFR/1.73 sq M.predicted among non-blacks MDRD (S/P/Bld) [Vol rate/Area] 89 mL/min/{1.73_m2} >60 [facility] Comment on above: mL/min/1.73m2 CKD-EP I Creatinine Equation (2020) H AND P Exam - [place] 08-24-2024 H&P Exam - Hospitalist [facility] Medical Records Department [address] [place] [id number] H P Exam - Hospitalist 08/24/24 2313 MR#: [id number] Acct: [id number] Name: ALTA BAKER Rep #: [id number] : 1950 74 From: Jemima Poe DO PCP: Dr. Kory Ibarra DO Status:ADM IN Location: [facility] [id number] HPI - General General Date of Admission: 08/24/24 Date of Service: 08/24/24 Chief Complaint: Shortness of breath HPI Narrative ALTA BAKER, is a 74 F who presented to the emergency department at [facility] on 08/24/2024 that she complained of shortness [...] she is not wheezing diffusely on exam. [facility] Medical History (Updated 08/25/24 @ 03:38 [...] inhalation 0 (more content not included)... Normal [facility] Hematocrit Auto (Bld) [Volum e fraction]Ordered By: John Paul Harrison on 08-24-2024 Hematocrit (Bld) [Volume fraction] 31.0 % Low 37-47 [facility] Hemoglobin measurementOrdere d By: John Paul Harrison on 08-24-2024 Hemoglobin (Bld) [Mass/Vol] 9.3 g/dL Low 12.0-15.0 [facility] Immature granulocytes/100 WB C Auto (Bld)Ordered By: John Paul Harrison on 08-24-2024 Immature granulocytes/100 WBC (Bld) 0.900 % 0.0-0.9 [facility] Comment on above: IG% - Immature Granu locytes (promyelocytes, myelocytes and metamyelocytes) > 1% indicates that a LEFT SHIFT is Present. Ketones Test strip Ql (U)Ord ered By: John Paul Harrison on 08-24-2024 Ketones Ql (U) Negative Negative [facility] L499.0042on 08-24-2024 Trop T High Sen 18 ng/L High <=14 [facility] Comment on above: Performed By: #### M 300.4500, M300.4600 #### [facility] [address] [place], [place], [address] L501.4021on 08-24-2024 Trop T High Sen 21 ng/L High <=14 [facility] Comment on above: Performed By: #### M 100.678 #### [facility] [address] [place], [place], [address] L503.7505on 08-24-2024 Natriuretic peptide B (Bld) [Mass/Vol] 5153 pg/mL High <=900 [facility] Comment on above: Result Comment: Hear t Failure Unlikely: < 300 pg/mL Heart Failure Likely < 50 Years: > 450 pg/mL 50-75 Years: > 900 pg/mL >75 Years: > 1800 pg/mL Performed By: #### L 500.4050 #### [facility] [address] [place], [place], [address] Lactic acid measurementOrder ed By: Jemima Poe on 08-24-2024 Lactate [Moles/Vol] 1.0 mmol/L 0.0-2.0 [facility] MCV (mean corpuscular volume ) determinationOrdered By: John Paul Harrison on 08-24-2024 MCV (RBC) [Entitic vol] 92.8 fL 81-99 [facility] Mean corpuscular hemoglobin (MCH) determinationOrdered By: John Paul Harrison on 08-24-2024 MCH (RBC) [Entitic mass] 27.8 pg 27.0-32.0 [facility] Mean corpuscular hemoglobin concentration (MCHC) determinationOrdered By: John Paul Harrison on 08-24-2024 MCHC (RBC) [Mass/Vol] 30.0 g/dL Low 32-36 [facility] Mean platelet volume determi nationOrdered By: John Paul Harrison on 08-24-2024 Platelet mean volume (Bld) [Entitic vol] 12.9 fL High 6.2-12.0 [facility] Microscopic analysis of urin e for red blood cells (RBC)Ordered By: John Paul Harrison on 08-24-2024 Microscopic analysis of urine for red blood cells (RBC) 0-5 SEEN /hpf 0-5 [facility] Monocyte percentageOrdered B y: John Paul Harrison on 08-24-2024 Monocytes/100 WBC (Bld) 27.2 % High 0-10 [facility] Mucus LM Ql (Urine sed)Order ed By: John Paul Harrison on 08-24-2024 Mucus Ql (Urine sed) 0 SEEN /hpf [facility] Natriuretic peptide.B prohor olamide N-Terminal [Mass/volume] in Serum or PlasmaOrdered By: John Paul Harrison on 08-24-2024 Natriuretic peptide.B prohormone N-Terminal [Mass/Vol] 5153 pg/mL High <900 [facility] Comment on above: Heart Failure Unlike ly: < 300 pg/mLHeart Failure Likely< 50 Years: > 450 pg/mL50-75 Years: > 900 pg/mL>75 Years: > 1800 pg/mL Neutrophil percentageOrdered By: John Paul Harrison on 08-24-2024 Neutrophils/100 WBC (Bld) 61.8 % 47-70 [facility] Nitrite Test strip Ql (U)Ord ered By: John Paul Harrison on 08-24-2024 Nitrite Ql (U) Negative Negative [facility] Nucleated red blood cell per centageOrdered By: John Paul Harrison on 08-24-2024 Nucleated RBC/100 WBC (Bld) [Ratio] 0 % 0-5 [facility] Platelet countOrdered By: Pravin Harrison on 08-24-2024 Platelets (Bld) [#/Vol] 96 10*3/uL Low 150-450 [facility] Platelet estimateOrdered By: John Paul Harrison on 08-24-2024 Platelets LM Ql (Bld) MOD DEC ADEQ [facility] Potassium measurement (mass/ volume)Ordered By: John Paul Harrison on 08-24-2024 Potassium (Unsp spec) [Mass/Vol] 4.7 mmol/L 3.3-5.1 [facility] Comment on above: Hemolysis present, R esults could be affected. Protein Test strip Ql (U)Ord ered By: John Paul Harrison on 08-24-2024 Protein Ql (U) 30 mg/dl High Negative [facility] RBC Auto (Bld) [#/Vol]Ordere d By: John Paul Harrison on 08-24-2024 RBC (Bld) [#/Vol] 3.34 10*6/uL Low 4.2-5.4 [facility] Serum creatinine measurement (mass/volume)Ordered By: John Paul Harrison on 08-24-2024 Creatinine [Mass/Vol] 0.72 mg/dL 0.70-1.20 [facility] Serum glucose measurement (m ass/volume)Ordered By: John Paul Harrison on 08-24-2024 Glucose [Mass/Vol] 89 mg/dL 70-99 [facility] Serum or plasma calcium betzaida urement (mass/volume)Ordered By: John Paul Harrison on 08-24-2024 Calcium [Mass/Vol] 9.9 mg/dL 7.6-11.0 [facility] Serum or plasma urea nitroge n measurement (mass/volume)Ordered By: John Paul Harrison on 08-24-2024 Urea nitrogen [Mass/Vol] 19 mg/dL 4-19 [facility] Sodium levelOrdered By: John Paul Harrison on 08-24-2024 Sodium [Moles/Vol] 143 mmol/L 133-145 [facility] Squamous epithelial cells de tection in urine sediment by light microscopyOrdered By: John Paul Harrison on 08-24-2024 Epithelial cells.squamous LM Ql (Urine sed) 25-50 SEEN /hpf 5-10 [facility] Transitional cells detection in urine sediment by light microscopyOrdered By: John Paul Harrison on 08-24-2024 Transitional cells LM Ql (Urine sed) 0-5 SEEN /hpf 0-5 [facility] Troponin T.cardiac [Mass/vol ume] in Serum or Plasma by High sensitivity methodOrdered By: John Paul Harrison on 08-24-2024 Troponin T.cardiac High sensitivity method [Mass/Vol] 15 ng/L High <14 [facility] Troponin T.cardiac High sensitivity method [Mass/Vol] 18 ng/L High <14 [facility] Troponin T.cardiac High sensitivity method [Mass/Vol] 21 ng/L High <14 [facility] Comment on above: Delta: 9 on 06/02/24 -1054 Urinalysis, Completeon 08-24 EPI,TRANSITION 0-5 SEEN Normal 0-5 [facility] Comment on above: Order Comment: GRIFFIN LEIOR TO SPECIFY Performed By: #### M 100.678 #### [facility] [address] [facility] [place], [address] RBC 0-5 SEEN Normal 0-5 [facility] Comment on above: Order Comment: GRIFFIN LEIOR TO SPECIFY Performed By: #### M 100.678 #### [facility] [address] [facility] [place], [address] WBC 0-5 SEEN Normal 0-5 [facility] Comment on above: Order Comment: GRIFFIN LEIOR TO SPECIFY Performed By: #### M 100.678 #### [facility] [address] [facility] [place], [place], [address] URIC CRYSTALS 1+ /hpf Normal [facility] Comment on above: Order Comment: GRIFFIN LEIOR TO SPECIFY Performed By: #### M 100.678 #### [facility] [address] [place], [address] EPI,SQUAMOUS 25-50 SEEN Normal 5-10 [facility] Comment on above: Order Comment: GRIFFIN CTOR TO SPECIFY Performed By: #### M 100.678 #### [facility] [address] [place], [address] BACTERIA 2+ /hpf Normal None Seen [facility] Comment on above: Order Comment: GRIFFIN CTOR TO SPECIFY Performed By: #### M 100.678 #### [facility] [address] [place], [address] Mucus Ql (Urine sed) 0 SEEN Normal [facility] Comment on above: Order Comment: GRIFFIN CTOR TO SPECIFY Performed By: #### M 100.678 #### [facility] [address] [place], [address] Urine Legionella pneumophila antigen detectionOrdered By: Jemima Poe on 08-24-2024 L. pneumophila Ag Ql (U) [facility] Urine clarityOrdered By: Alex Harrison on 08-24-2024 Clarity (U) Clear Clear [facility] Urine color determinationOrd ered By: John Paul Harrison on 08-24-2024 Color (U) Yellow Yellow [facility] Urine glucose detectionOrder ed By: John Paul Harrison on 08-24-2024 Glucose Ql (U) Normal mg/dl Normal [facility] Urine leukocyte esterase det ection by dipstickOrdered By: John Paul Harrison on 08-24-2024 Leukocyte esterase Test strip Ql (U) 100 /ul High Negative [facility] Urine pHOrdered By: John Paul hussein on 08-24-2024 pH (U) 5.0 [pH] 5.0 - 8.0 [facility] Urine sediment bacteria coun t by microscopy (number/high power field)Ordered By: John Paul Harrison on 08-24-2024 Bacteria LM.HPF (Urine sed) [#/Area] 2 /[HPF] None Seen [facility] Urine sediment uric acid cry stal count by microscopy (number/high power field)Ordered By: John Paul Harrison on 08-24-2024 Urate crystals LM.HPF (Urine sed) [#/Area] 1 /[HPF] [facility] Urine specific gravity measu rementOrdered By: John Paul Harrison on 08-24-2024 Specific gravity (U) [Rel density] 1.020 1.002-1.030 [facility] Urine urobilinogen measureme ntOrdered By: John Paul Harrison on 08-24-2024 Urobilinogen Ql (U) Normal mg/dl Normal [facility] White blood cell (WBC) count Ordered By: John Paul Harrison on 08-24-2024 WBC (Bld) [#/Vol] 16.4 10*3/uL High 4.4-11.0 [facility] White blood cell countOrdere d By: John Paul Harrison on 08-24-2024 White blood cell count 0-5 SEEN /hpf 0-5 [facility] 36on 08-23-2024 36 [facility] 36on 08-21-2024 36 Called patient and l jefft voicemail regarding rx sent to pharmacy. Please relay message to patient. [facility] 36 [facility] Progress Noteon 08-15-2024 Progress Note [facility] 36on 08-14-2024 36 [facility] 36 Placed call to shari nt. Unable to reach them by phone to discuss lab results. Left detailed message to return call to discuss results. Please release information to patient [facility] 36 [facility] CNOVon 08-09-2024 CNOV Office Visit (UCWSTR ) ----- ALTA BAKER ([id number]) 1950 F Date Time Provider Department 08/09/24 [...] past surgical history on file. 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 Disposition The patient was discharged. Procedures Allergies As of Date: 08/09/2024 Noted Allergy Reaction OXYCODONE 07/27/2017 1 - Mental Status Change Comments: Did not like the feeling [id number] REDUCTASE INHIBIT*07/07/2016 17 - Myalgia TETANUS AND DIPHTHERIA TOXOIDS 01/31/2019 7 - Swelling Date Reviewed: 08/09/2024 Reviewed by: Ya Berry MA - Fully Assessed Reason for Visit: Pain (Elbow Pain) [1344] Cmt: right redness and swelling x 2 days Primary Visit Diagnosis:Skin erythema [L53.9] Other Visit Diagnosis:Right elbow pain [M25.521] Order(s):XR ELBOW GENERAL 2V AP/LAT RIGHT [[id number]] Order #: [id number]. #:[id number] cephALEXin (KEFLEX) 500 mg capsuleTake 1 capsule by mouth three times a day for 7 days.Disp: 21 caps (more content not included)... Normal [facility] XR ELBOW 2V AP/LAT RTon 07-14 XR [...] without radiographic evidence of acute osseous abnormality Developer Designer: [facility] Transcribe Date/Time: Aug 09 2024 2:50P Dictated by : DEE DRISCOLL MD This examination was interpreted and the report reviewed and electronically signed by: DEE DRISCOLL MD on Aug 09 2024 2:51PM EST [id number] Normal [facility] XR Elbow - right AP and Late ralon 08-09-2024 IMPRESSION: Soft tissue swelling without radiographic evidence of acute osseous abnormality Developer Designer: [facility] Transcribe Date/Time: Aug 09 2024 2:50P Dictated [...] Soft tissue swelling. DIVISION OF RADIOLOGY Provider, [facility] - 08/09/2024 * * *Final Report* [...] without radiographic evidence of acute osseous abnormality Developer Designer: [facility] Transcribe Date/Time: Aug 09 2024 2:50P Dictated by : DEE DRISCOLL MD This examination was interpreted and the report reviewed and electronically signed by: DEE DRISCOLL MD on Aug 09 2024 2:51PM EST [facility] Radiology Study observation (narrative) [facility] XR Elbow - right AP and Late ralOrdered By: [facility] Provider on 08-09-2024 [facility] BASIC METABOLIC PANELon 07-14 Anion gap [Moles/Vol] 9 mmol/L Normal 3-13 [facility] Comment on above: Performed By: #### L [id number] ####Maint Mechanic: VIVIAN PANTOJA ([phone])[facility]ENTER[facility]MIN[facility] (SWRLAB)[address] [place] [address] Calcium [Mass/Vol] 9.7 mg/dL Normal 8.8-10.0 [facility] Comment on above: Performed By: #### L [id number] ####Maint Mechanic: VIVIAN PANTOJA ([phone])[facility] FOX R[place]TM[facility] (SWRLAB)[address] [place] [address] [place] Chloride [Moles/Vol] 107 mmol/L Normal 98-107 [facility] Comment on above: Performed By: #### L [id number] ####Maint Mechanic: VIVIAN PANTOJA ([phone])[facility] [place] (SWRLAB)[address] [place] [address] [place] CO2 [Moles/Vol] 26 mmol/L Normal 23-31 [facility] Comment on above: Performed By: #### L [id number] ####Maint Mechanic: VIVIAN PANTOJA ([phone])[facility] [place] (SWRLAB)[address] [place] [address] [place] Creatinine [Mass/Vol] 0.92 mg/dL Normal 0.57-1.11 [facility] Comment on above: Performed By: #### L [id number] ####Maint Mechanic: VIVIAN PANTOJA ([phone])[facility] [place] (SWRLAB)[address] [place] [address] GLOMERULAR FILTRATION RATE ML/MIN/1.73 SQ M.PREDICTED 65.9 mL/min/1.73m*2 Normal >60.0 [facility] Comment on above: Result Comment: Calc ulation based on the Chronic Kidney Disease Epidemiology Collaboration (CKD-EPI) equation refit without adjustment for race Performed By: #### L [id number] ####Maint Mechanic: VIVIAN PANTOJA ([phone])[facility] [place] (SWRLAB)[address] [place] [address] [place] Glucose [Mass/Vol] 100 mg/dL Normal 82-115 [facility] Comment on above: Performed By: #### L [id number] ####Maint Mechanic: VIVIAN PANTOJA ([phone])[facility] [place] (SWRLAB)[address] [place] [address] [place] Potassium [Moles/Vol] 4.6 mmol/L Normal 3.5-5.1 [facility] Comment on above: Result Comment: [facility] potassium values may be up to 0.5 mmol/L lower than serum values. Performed By: #### L [id number] ####Maint Mechanic: VIVIAN PANTOJA ([phone])[facility]ENTER[facility] SIDDIQUITMAN (SWRLAB)[address] [place] [address] Sodium [Moles/Vol] 142 mmol/L Normal 136-145 [facility] Comment on above: Performed By: #### L [id number] ####Maint Mechanic: VIVIAN PANTOJA ([phone])[facility] SIDDIQUITMAN (SWRLAB)[address] [place] [address] Urea nitrogen [Mass/Vol] 24 mg/dL High 9-23 [facility] Comment on above: Performed By: #### L [id number] ####Maint Mechanic: VIVIAN PANTOJA ([phone])[facility] [place] (SWRLAB)[address] [place] [address] CBC WITH AUTO DIFFERENTIALon 08-05-2024 Basophils (Bld) [#/Vol] 0.0 10*3/uL Normal 0.0-0.2 [facility] Comment on above: Performed By: #### L [id number] ####Maint Mechanic: VIVIAN PANTOJA ([phone])[facility] SIDDIQUITMAN (SWRLAB)[address] [place] [address] Basophils/100 WBC (Bld) 0.2 % Normal 0.0-2.0 [facility] Comment on above: Performed By: #### L [id number] ####Maint Mechanic: VIVIAN PANTOJA ([phone])[facility] SIDDIQUITMAN (SWRLAB)[address] [place] [address] Eosinophils (Bld) [#/Vol] 0.0 10*3/uL Normal 0.0-0.5 [facility] Comment on above: Performed By: #### L [id number] ####Maint Mechanic: VIVIAN PANTOJA ([phone])[facility] (SWRLAB)[address] [place] [address] Eosinophils/100 WBC (Bld) 0.2 % Normal 0.0-6.0 [facility] Comment on above: Performed By: #### L [id number] ####Maint Mechanic: VIVIAN PANTOJA ([phone])[facility] (SWRLAB)[address] [place] [address] Erythrocyte distribution width (RBC) [Ratio] 15.6 % High 11.5-15.0 [facility] Comment on above: Performed By: #### L [id number] ####Maint Mechanic: VIVIAN PANTOJA ([phone])[facility] [place] (SWRLAB)[address] [place] [address] Hematocrit (Bld) [Volume fraction] 30.0 % Low 35.0-47.0 [facility] Comment on above: Performed By: #### L [id number] ####Maint Mechanic: VIVIAN PANTOJA ([phone])[facility] [place] (SWRLAB)[address] [place] [address] Hemoglobin (Bld) [Mass/Vol] 9.2 g/dL Low 11.7-16.0 [facility] Comment on above: Performed By: #### L [id number] ####Maint Mechanic: VIVIAN PANTOJA ([phone])[facility] [place] [facility] (SWRLAB)[address] [place] [address] IMMATURE GRANS % 0.5 % Normal 0.0-2.0 [facility] Comment on above: Performed By: #### L [id number] ####Maint Mechanic: VIVIAN PANTOJA ([phone])[facility] (SWRLAB)[address] [place] [address] IMMATURE GRANS ABSOLUTE 0.1 10*3/uL High <0.1 [facility] Comment on above: Performed By: #### L [id number] ####Maint Mechanic: VIVIAN PANTOJA ([id number])[facility] (SWRLAB)[address] [place] [address] Lymphocytes (Bld) [#/Vol] 1.3 10*3/uL Normal 1.0-4.3 [facility] Comment on above: Performed By: #### L [id number] ####Maint Mechanic: VIVIAN PANTOJA ([phone])[facility] (SWRLAB)[address] [place] [address] Lymphocytes/100 WBC (Bld) 11.9 % Low 15.0-45.0 [facility] Comment on above: Performed By: #### L [id number] ####Maint Mechanic: VIVIAN PANTOJA ([phone])[facility] (SWRLAB)[address] [place] [address] MCH (RBC) [Entitic mass] 28.1 pg Normal 26.0-34.0 [facility] Comment on above: Performed By: #### L [id number] ####Maint Mechanic: VIVIAN PANTOJA ([phone])[facility] (SWRLAB)[address] [place] [address] MCHC 30.7 % Normal 30.5-36.0 [facility] Comment on above: Performed By: #### L [id number] ####Maint Mechanic: VIVIAN PANTOJA ([phone])[facility] (SWRLAB)[address] [place] [address] MCV (RBC) [Entitic vol] 91.7 fL Normal 77.0-99.0 [facility] Comment on above: Performed By: #### L [id number] ####Maint Mechanic: VIVIAN PANTOJA ([phone])[facility] (SWRLAB)[address] [place] [address] Monocytes (Bld) [#/Vol] 2.7 10*3/uL High 0.0-0.9 [facility] Comment on above: Performed By: #### L [id number] ####Maint Mechanic: VIVIAN PANTOJA ([phone])[facility] (SWRLAB)[address] [place] [address] [place] Monocytes/100 WBC (Bld) 24.3 % High 5.0-13.0 [facility] Comment on above: Performed By: #### L [id number] ####Maint Mechanic: VIVIAN PANTOJA ([id number])[facility] (SWRLAB)[address] [place] [address] [place] NEUTROPHILS ABSOLUTE 6.9 10*3/uL Normal 1.8-7.5 [facility] Comment on above: Performed By: #### L [id number] ####Maint Mechanic: VIVIAN PANTOJA ([phone])[facility] (SWRLAB)[address] [place] [address] [place] Neutrophils/100 WBC (Bld) 62.9 % Normal 38.0-82.0 [facility] Comment on above: Performed By: #### L [id number] ####Maint Mechanic: VIVIAN PANTOJA ([phone])[facility]ENTERB[facility] (SWRLAB)[address] [place] [address] [place] NRBC 0.0 /100 WBCs Normal 0.0-2.0 [facility] Comment on above: Performed By: #### L [id number] ####Maint Mechanic: VIVIAN PANTOJA ([phone])[facility] (SWRLAB)[address] [place] [address] Platelet mean volume (Bld) [Entitic vol] 12.6 fL Normal 9.0-12.7 [facility] Comment on above: Result Comment: MPV is a calculated measurement using platelet volume ratio Performed By: #### L [id number] ####Maint Mechanic: VIVIAN PANTOJA ([phone])[facility] (SWRLAB)[address] [place] [address] [place] Platelets (Bld) [#/Vol] 120 10*3/uL Low 140-440 [facility] Comment on above: Performed By: #### L [id number] ####Maint Mechanic: VIVIAN PANTOJA ([id number])[facility] OFX RITTMAN (SWRLAB)[address] RBC (Bld) [#/Vol] 3.27 10*6/uL Low 3.80-5.20 [facility] Comment on above: Performed By: #### L [id number] ####Maint Mechanic: VIVIAN PANTOJA ([phone])[facility] MARTINEZRUDDY RITTMAN (SWRLAB)[address] [place] [address] WBC (Bld) [#/Vol] 11.0 10*3/uL High 3.6-10.7 [facility] Comment on above: Performed By: #### L [id number] ####Maint Mechanic: VIVIAN PANTOJA ([phone])[facility] SIDDIQUITMAN (SWRLAB)[address] [place] [address] [place] IG CONCENTRATION, BLOOD (IMM UNOFIXATION ELECTROPHORESIS)on 08-05-2024 IGA, BLOOD 162 mg/dL Normal 85-600 [facility] Comment on above: Order Comment: THIS IS A CARVE-OUT TEST. SEND SPECIMEN TO [facility] FOR PROCESSING Performed By: #### L [id number] ####Maint Mechanic: AMAN SANTOS ([phone])[facility] DIETRICH (SBHLAB)[address] [place] [address] [place] IGG, BLOOD 531 mg/dL Low 540-1722 [facility] Comment on above: Order Comment: THIS IS A CARVE-OUT TEST. SEND SPECIMEN TO [facility] FOR PROCESSING Performed By: #### L [id number] ####Maint Mechanic: AMAN SANTOS ([phone])[facility] DIETRICH (SBHLAB)[address] [place] [address] [place] IGM, BLOOD 81 mg/dL Normal 25-265 [facility] Comment on above: Order Comment: THIS IS A CARVE-OUT TEST. SEND SPECIMEN TO [facility] FOR PROCESSING Performed By: #### L [id number] ####Maint Mechanic: AMAN SANTOS ([phone])[facility] ([facility])[address] [place] [address] IMMUNOFIXATION ELECTROPHORES Nick 08-05-2024 IMMUNOFIXATION ELECTROPHORESIS See Below [facility] Comment on above: Order Comment: THIS IS A CARVE-OUT TEST. SEND SPECIMEN TO [facility] FOR PROCESSING Result Comment: A mo noclonal IgG kappa protein cannot be excluded. Low IgG level. Serum free light chain levels are recommended, if clinically indicated. Performed By: #### L [id number] ####Maint Mechanic: VIVIAN PANTOJA ([phone])[facility] ([facility])[address] [place] [address] RELEASED BY Vivian Pantoja M.D. [facility] Comment on above: Order Comment: THIS IS A CARVE-OUT TEST. SEND SPECIMEN TO [facility] FOR PROCESSING Result Comment: This is an appended report. These results have been appended to a previously preliminary verified report. Performed By: #### L [id number] ####Maint Mechanic: VIVIAN PANTOJA ([phone])[facility] ([facility])[address] [place] [address] REVIEWED BY Noe Oropeza, Ph.D. [facility] Comment on above: Order Comment: THIS IS A CARVE-OUT TEST. SEND SPECIMEN TO [facility] FOR PROCESSING Performed By: #### L [id number] ####Maint Mechanic: VIVIAN PANTOJA ([phone])[facility] ([facility])[address] [place] [address] 36on 08-04-2024 36 Message released to patient as written. Patient's further questions if applicable: pt received results Were all questions from office addressed or relayed to the patient from encounter: Yes [facility] 36 Placed call to patie nt. Unable to reach them by phone to discuss lab results. Left detailed message to return call to discuss results. Please release information to patient Pt also sent letter to return call to the office. Normal [facility] 36on 08-02-2024 36 Spoke with pt and sh el says she is getting her blood work done tmrw and has an apt with you on the and will discuss everything with you then. Normal [facility] 36 Normal [facility] 36on 08-01-2024 36 There are no Gastros at [facility]. Do you have someone else? Normal [facility] 36 Normal [facility] ECG 12 lead - CLINIC PERFORM EDon 07-31-2024 [facility] Progress Noteon 07-31-2024 Progress Note Normal [facility] 36on 07-28-2024 36 Noted; thank you. [facility] 36 Received via fax fro [facility] 06/02/24 EKG and 06/03/24 Echocardiogram. Report is scanned to [facility]. Normal [facility] 36 Noted; thank you. [facility] 36 Faxed request to [facility] Medical Records for report of 06/02/24 Echocardiogram. Your fax has been successfully sent to [facility] Medical Records at [phone]. Normal [facility] 36on 07-17-2024 36 Normal [facility] 36on 07-03-2024 36 [facility] 36 . Normal [facility] IG CONCENTRATION BLOODon IGA, BLOOD 163 mg/dL Normal 85-600 [facility] Comment on above: Performed By: #### L [id number] ####Maint Mechanic: AMAN SANTOS ([phone])[facility] ([facility])[address] [place] [address] IGG, BLOOD 505 mg/dL Low 540-1722 [facility] Comment on above: Performed By: #### L [id number] ####Maint Mechanic: AMAN SANTOS ([phone])[facility] [place] [address] IGM, BLOOD 77 mg/dL Normal 25-265 [facility] Comment on above: Performed By: #### L [id number] ####Maint Mechanic: AMAN SANTOS ([phone])[facility] ([facility])[address] [place], [place] [id number] [facility] 06-26-2024 36 Normal [facility] 2906-23-2024 29 Addended by: MIGUEL AMEZCUA on: 08/05/2024 10:50 AM Modules accepted: Orders Normal [facility] 29 Addended by: DAVIS KERN on: 06/30/2024 04:36 PM Modules accepted: Orders Normal [facility] 36on 06-23-2024 36 Provider has not rev iewed the results. Once reviewed by the provider the office will reach out to patient. Normal [facility] 36 Normal [facility] CBC W Auto Differential pane l (Bld)Ordered By: Marion Bennett on 06-21-2024 Basophils (Bld) [#/Vol] 0 10*3/uL 0.0 - 0.2 10*3/uL [facility] Basophils/100 WBC (Bld) 0 % 0.0 - 2.0 % [facility] Eosinophils (Bld) [#/Vol] 0 10*3/uL 0.0 - 0.5 10*3/uL [facility] Eosinophils/100 WBC (Bld) 0.1 % 0.0 - 6.0 % [facility] Erythrocyte distribution width (RBC) [Ratio] 16.4 % High 11.5 - 15.0 % [facility] Hematocrit (Bld) [Volume fraction] 28.4 % Low 35.0 - 47.0 % [facility] Hemoglobin (Bld) [Mass/Vol] 8.6 g/dL Low 11.7 - 16.0 g/dL [facility] Immature granulocytes (Bld) [#/Vol] 0 10*3/uL NINF - 0.1 10*3/uL [facility] Immature granulocytes/100 WBC (Bld) 0.4 % 0.0 - 2.0 % [facility] Interpretation and review of laboratory results Abnormal [facility] IPF 12 [facility] Lymphocytes (Bld) [#/Vol] 1.1 10*3/uL 1.0 - 4.3 10*3/uL [facility] Lymphocytes/100 WBC (Bld) 14.7 % Low 15.0 - 45.0 % [facility] MCH (RBC) [Entitic mass] 29 pg 26.0 - 34.0 pg [facility] MCHC (RBC) [Mass/Vol] 30.3 % Low 30.5 - 36.0 % [facility] MCV (RBC) [Entitic vol] 95.6 fL 77.0 - 99.0 fL [facility] Monocytes (Bld) [#/Vol] 1.7 10*3/uL High 0.0 - 0.9 10*3/uL [facility] Monocytes/100 WBC (Bld) 22.4 % High 5.0 - 13.0 % [facility] Neutrophils (Bld) [#/Vol] 4.6 10*3/uL 1.8 - 7.5 10*3/uL [facility] Neutrophils/100 WBC (Bld) 62.4 % 38.0 - 82.0 % [facility] Nucleated RBC/100 WBC (Bld) [Ratio] 0 % [facility] Platelet mean volume (Bld) [Entitic vol] 13.3 fL High 9.0 - 12.7 fL [facility] Platelets (Bld) [#/Vol] 80 10*3/uL Low 140 - 440 10*3/uL [facility] RBC (Bld) [#/Vol] 2.97 10*6/uL Low 3.80 - 5.2 0 10*6/uL [facility] WBC (Bld) [#/Vol] 7.4 10*3/uL 3.6 - 10.7 10*3/uL [facility] CBC WITH AUTO DIFFERENTIALon 06-21-2024 Basophils (Bld) [#/Vol] 0.0 10*3/uL Normal 0.0-0.2 [facility] Comment on above: Performed By: #### L [id number] ####Maint Mechanic: VIVIAN PANTOJA ([phone])[facility] ([address] Basophils/100 WBC (Bld) 0.0 % Normal 0.0-2.0 [facility] Comment on above: Performed By: #### L [id number] ####Maint Mechanic: VIVIAN PANTOJA ([phone])[facility] ([facility])[address] [place] [address] Eosinophils (Bld) [#/Vol] 0.0 10*3/uL Normal 0.0-0.5 [facility] Comment on above: Performed By: #### L [id number] ####Maint Mechanic: VIVIAN PANTOJA ([phone])[facility] ([facility])[address] [place] [address] [place] Eosinophils/100 WBC (Bld) 0.1 % Normal 0.0-6.0 [facility] Comment on above: Performed By: #### L [id number] ####Maint Mechanic: VIVIAN PANTOJA ([phone])[facility] ([facility])[address] [place] [address] Erythrocyte distribution width (RBC) [Ratio] 16.4 % High 11.5-15.0 [facility] Comment on above: Performed By: #### L [id number] ####Maint Mechanic: VIVIAN PANTOJA ([phone])[facility] ([facility])[address] [place] [address] Hematocrit (Bld) [Volume fraction] 28.4 % Low 35.0-47.0 [facility] Comment on above: Performed By: #### L [id number] ####Maint Mechanic: VIVIAN PANTOJA ([phone])[facility] ([facility])[address] [place] [address] Hemoglobin (Bld) [Mass/Vol] 8.6 g/dL Low 11.7-16.0 [facility] Comment on above: Performed By: #### L [id number] ####Maint Mechanic: VIVIAN PANOTJA ([phone])[facility] ([facility])[address] [place] [address] IMMATURE GRANS % 0.4 % Normal 0.0-2.0 [facility] Comment on above: Performed By: #### L [id number] ####Maint Mechanic: VIVIAN PANTOJA ([phone])[facility] ([facility])[address] [place] [address] IMMATURE GRANS ABSOLUTE 0.0 10*3/uL Normal <0.1 [facility] Comment on above: Performed By: #### L [id number] ####Maint Mechanic: VIVIAN PANTOJA ([phone])[facility] ([facility])[address] [place] [address] IPF 12 Normal [facility] Comment on above: Performed By: #### L [id number] ####Maint Mechanic: VIVIAN PANTOJA ([phone])[facility] ([facility])[address] [place] [address] Lymphocytes (Bld) [#/Vol] 1.1 10*3/uL Normal 1.0-4.3 [facility] Comment on above: Performed By: #### L [id number] ####Maint Mechanic: VIVIAN PANTOJA ([phone])[facility] ([facility])[address] [place] [address] Lymphocytes/100 WBC (Bld) 14.7 % Low 15.0-45.0 [facility] Comment on above: Performed By: #### L [id number] ####Maint Mechanic: VIVIAN PANTOJA ([phone])[facility] ([facility])[address] [place] [address] MCH (RBC) [Entitic mass] 29.0 pg Normal 26.0-34.0 [facility] Comment on above: Performed By: #### L [id number] ####Maint Mechanic: VIVIAN PANTOJA ([phone])[facility] ([facility])[address] [place] [address] MCHC 30.3 % Low 30.5-36.0 [facility] Comment on above: Performed By: #### L [id number] ####Maint Mechanic: VIVIAN PANTOJA ([phone])[facility] ([facility])[address] MCV (RBC) [Entitic vol] 95.6 fL Normal 77.0-99.0 [facility] Comment on above: Performed By: #### L [id number] ####Maint Mechanic: VIVIAN PANTOJA ([phone])[facility] ([facility])[address] [place] [address] Monocytes (Bld) [#/Vol] 1.7 10*3/uL High 0.0-0.9 [facility] Comment on above: Performed By: #### L [id number] ####Maint Mechanic: VIVIAN PANTOJA ([phone])[facility] ([facility])[address] [place] [address] [place] Monocytes/100 WBC (Bld) 22.4 % High 5.0-13.0 [facility] Comment on above: Performed By: #### L [id number] ####Maint Mechanic: VIVIAN PANTOJA ([phone])[facility] ([facility])[address] [place] [address] [place] NEUTROPHILS ABSOLUTE 4.6 10*3/uL Normal 1.8-7.5 [facility] Comment on above: Performed By: #### L [id number] ####Maint Mechanic: VIVIAN PANTOJA ([phone])[facility] ([facility])[address] [place] [address] [place] Neutrophils/100 WBC (Bld) 62.4 % Normal 38.0-82.0 [facility] Comment on above: Performed By: #### L [id number] ####Maint Mechanic: VIVIAN PANTOJA ([phone])[facility] ([facility])[address] [place] [address] [place] NRBC 0.0 /100 WBCs Normal 0.0-2.0 [facility] Comment on above: Performed By: #### L [id number] ####Maint Mechanic: VIVIAN PANTJOA ([phone])[facility] ([facility])[address] [place] [address] Platelet mean volume (Bld) [Entitic vol] 13.3 fL High 9.0-12.7 [facility] Comment on above: Performed By: #### L [id number] ####Maint Mechanic: VIVIAN PANTOJA ([phone])[facility] ([facility])[address] [place] [address] Platelets (Bld) [#/Vol] 80 10*3/uL Low 140-440 [facility] Comment on above: Performed By: #### L [id number] ####Maint Mechanic: VIVIAN PANTOJA ([phone])[facility] ([facility])[address] [place] [address] RBC (Bld) [#/Vol] 2.97 10*6/uL Low 3.80-5.20 [facility] Comment on above: Performed By: #### L [id number] ####Maint Mechanic: VIVIAN PANTOJA ([phone])[facility] ([facility])[address] [place] [address] WBC (Bld) [#/Vol] 7.4 10*3/uL Normal 3.6-10.7 [facility] Comment on above: Performed By: #### L [id number] ####Maint Mechanic: VIVIAN PANTOJA ([phone])[facility] ([facility])[address] [place] [address] COMPREHENSIVE METABOLIC PANE Amaury 06-21-2024 Albumin [Mass/Vol] 3.8 g/dL Normal 3.4-4.8 [facility] Comment on above: Performed By: #### L AB17, LAB67, LAB68 ####Maint Mechanic: VIVIAN PANTOJA ([phone])[facility] ([facility])[address] [place] [address] [place] ALP [Catalytic activity/Vol] 76 U/L Normal 40-150 [facility] Comment on above: Performed By: #### Manpreet SCOTT, LAB67, LAB68 ####Maint Mechanic: VIVIAN PANTOJA ([phone])[facility]A [facility] ([facility])[address] ALT [Catalytic activity/Vol] 19 U/L Normal <30 [facility] Comment on above: Performed By: #### Manpreet AB17, LAB67, LAB68 ####Maint Mechanic: VIVIAN PANTOJA ([phone])[facility] ([facility])[address] Anion gap [Moles/Vol] 8 mmol/L Normal 3-13 [facility] Comment on above: Performed By: #### Manpreet SCOTT, LAB67, LAB68 ####Maint Mechanic: VIVIAN PANTOJA ([id number])[facility] ([facility])[address] [place] [address] [place] AST [Catalytic activity/Vol] 15 U/L Normal <34 [facility] Comment on above: Performed By: #### Manpreet SCOTT, LAB67, LAB68 ####Maint Mechanic: VIVIAN PANTOJA ([phone])[facility]ENTERBessy [facility]ARTINEZRUD[facility] ([facility])[address] Bilirubin [Mass/Vol] 0.9 mg/dL Normal <1.2 [facility] Comment on above: Performed By: #### Manpreet SCOTT, LAB67, LAB68 ####Maint Mechanic: VIVIAN PANTOJA ([phone])[facility] ([facility])[address] [place] [address] [place] Calcium [Mass/Vol] 9.4 mg/dL Normal 8.8-10.0 [facility] Comment on above: Performed By: #### Manpreet SCOTT, LAB67, LAB68 ####Maint Mechanic: VIVIAN PANTOJA ([phone])[facility] ([facility])[address] [place] [address] [place] Chloride [Moles/Vol] 108 mmol/L High 98-107 [facility] Comment on above: Performed By: #### Manpreet MCCALL17, LAB67, LAB68 ####Maint Mechanic: VIVIAN PANTOJA ([phone])[facility] ([facility])[address] [place] [address] [place] CO2 [Moles/Vol] 29 mmol/L Normal 23-31 [facility] Comment on above: Performed By: #### Manpreet SCOTT, LAB67, LAB68 ####Maint Mechanic: VIVIAN PANTOJA ([phone])[facility] ([facility])[address] [place] [address] [place] Creatinine [Mass/Vol] 0.71 mg/dL Normal 0.57-1.11 [facility] Comment on above: Performed By: #### Manpreet SCOTT, LAB67, LAB68 ####Maint Mechanic: VIVIAN PANTOJA ([phone])[facility] ([facility])[address] [place] [address] [place] GLOMERULAR FILTRATION RATE ML/MIN/1.73 SQ M.PREDICTED 89.9 mL/min/1.73m*2 Normal >60.0 [facility] Comment on above: Result Comment: Calc ulation based on the Chronic Kidney Disease Epidemiology Collaboration (CKD-EPI) equation refit without adjustment for race Performed By: #### Manpreet SCOTT, LAB67, LAB68 ####Maint Mechanic: VIVIAN PANTOJA ([phone])[facility] ([facility])[address] [place] [address] [place] Glucose [Mass/Vol] 103 mg/dL Normal 82-115 [facility] Comment on above: Performed By: #### Manpreet SCOTT, LAB67, LAB68 ####Maint Mechanic: VIVIAN PANTOJA ([phone])[facility] ([facility])[address] [place] [address] [place] Potassium [Moles/Vol] 3.4 mmol/L Low 3.5-5.1 [facility] Comment on above: Result Comment: [facility] potassium values may be up to 0.5 mmol/L lower than serum values. Performed By: #### Manpreet AB17, LAB67, LAB68 ####Maint Mechanic: VIVIAN PANTOJA ([phone])[facility] ([facility])[address] [place] [address] Protein [Mass/Vol] 6.3 g/dL Low 6.4-8.3 [facility] Comment on above: Performed By: #### Manpreet MCCALL17, LAB67, LAB68 ####Maint Mechanic: VIVIAN PANTOJA ([phone])[facility]ENTER[facility] ([facility])[address] [place] [address] Sodium [Moles/Vol] 145 mmol/L Normal 136-145 [facility] Comment on above: Performed By: #### Manpreet SCOTT, LAB67, LAB68 ####Maint Mechanic: VIVIAN PANTOJA ([phone])[facility] ([facility])[address] [place] [address] Urea nitrogen [Mass/Vol] 17 mg/dL Normal 9-23 [facility] Comment on above: Performed By: #### Manpreet MCCALL17, LAB67, LAB68 ####Maint Mechanic: VIVIAN PANTOJA ([phone])[facility] ([facility])[address] [place] [address] Cobalamin (Vitamin B12) [Mas s/Vol]on 06-21-2024 Interpretation and review of laboratory results Abnormal [facility] Comprehensive metabolic 1998 panelon 06-21-2024 Albumin [Mass/Vol] 3.8 g/dL 3.4 - 4.8 g/dL [facility] ALP [Catalytic activity/Vol] 76 U/L 40 - 150 U/L [facility] ALT [Catalytic activity/Vol] 19 U/L NINF - 30 U/L [facility] Anion gap [Moles/Vol] 8 mmol/L 3 - 13 mmol/L [facility] AST [Catalytic activity/Vol] 15 U/L NINF - 34 U/L [facility] Bilirubin [Mass/Vol] 0.9 mg/dL NINF - 1.2 mg/dL [facility] Calcium [Mass/Vol] 9.4 mg/dL 8.8 - 10. 0 mg/dL [facility] Chloride [Moles/Vol] 108 mmol/L High 98 - 10 7 mmol/L [facility] CO2 [Moles/Vol] 29 mmol/L 23 - 31 mmol/L [facility] Creatinine [Mass/Vol] 0.71 mg/dL 0.57 - 1.11 mg/dL [facility] GFR/1.73 sq M.predicted (S/P/Bld) [Vol rate/Area] 89.9 mL/min - PINF [facility] Comment on above: Calculation based on the Chronic Kidney Disease Epidemiology Collaboration (CKD-EPI) equation refit without adjustment for race Glucose [Mass/Vol] 103 mg/dL 82 - 115 mg/dL [facility] Interpretation and review of laboratory results Abnormal [facility] Potassium [Moles/Vol] 3.4 mmol/L Low 3.5 - 5.1 mmol/L [facility] Comment on above: Plasma potassium imer ues may be up to 0.5 mmol/L lower than serum values. Protein [Mass/Vol] 6.3 g/dL Low 6.4 - 8.3 g/dL [facility] Sodium [Moles/Vol] 145 mmol/L 136 - 145 mmol/L [facility] Urea nitrogen [Mass/Vol] 17 mg/dL 9 - 23 mg/dL [facility] FERRITINon 06-21-2024 Ferritin [Mass/Vol] 127 ng/mL Normal - [facility] Comment on above: Result Comment: LEOBARDO Gill COMMENTS:Ferritin levels below 10 ng/mL have been reported as indicative of iron deficiency anemia. Performed By: #### L AB17, LAB67, LAB68 ####Maint Mechanic: VIVIAN PANTOJA ([phone])[facility] ([facility])[address] [place] [address] Ferritinon 06-21-2024 Ferritin [Mass/Vol] 127 ng/mL 5 - 204 ng/mL [facility] Ferritin [Mass/Vol]on 04-09- 2025 Interpretation and review of laboratory results Normal [facility] Ferritin levels belo w 10 ng/mL have been reported as indicative of iron deficiency anemia. [facility] IRON AND TIBCon 06-21-2024 IRON BINDING CAPACITY 289 ug/dL Normal 250-450 [facility] Comment on above: Performed By: #### L [id number] ####Maint Mechanic: VIVIAN PANTOJA ([phone])[facility] ([facility])[address] [place] [address] IRON SATURATION 15.6 % Low 20.0-50.0 [facility] Comment on above: Performed By: #### L [id number] ####Maint Mechanic: VIVIAN PANTOJA ([phone])[facility] ([facility])[address] [place] [address] IRON, TOTAL 45 ug/dL Low 50-170 [facility] Comment on above: Performed By: #### L [id number] ####Maint Mechanic: VIVIAN PANTOJA ([phone])[facility] ([facility])[address] [place] [address] Iron and Iron binding capaci ty panelon 06-21-2024 Interpretation and review of laboratory results Abnormal [facility] Iron [Mass/Vol] 45 ug/dL Low 50 - 170 ug/dL [facility] Iron binding capacity [Mass/Vol] 289 ug/dL 250 - 450 ug/dL [facility] Iron saturation [Mass fraction] 15.6 % Low 20.0 - 50.0 % [facility] No Panel Informationon 06-21 [facility] SERUM ELECTROPHORESISon Albumin [Mass/Vol] 4.1 g/dL Normal 3.1-4.8 [facility] Comment on above: Order Comment: THIS IS A CARVE-OUT LAB: SPECIMEN MUST BE SENT TO [facility] FOR PROCESSING Performed By: #### L [id number] ####Maint Mechanic: VIVIAN PANTOJA ([phone])[facility] ([address] ALPHA 1 0.5 g/dL High 0.2-0.4 [facility] Comment on above: Order Comment: THIS IS A CARVE-OUT LAB: SPECIMEN MUST BE SENT TO [facility] FOR PROCESSING Performed By: #### L [id number] ####Maint Mechanic: VIVIAN PANTOJA ([phone])[facility])[address] [place] [address] ALPHA 2 0.6 g/dL Normal 0.6-1.0 [facility] Comment on above: Order Comment: THIS IS A CARVE-OUT LAB: SPECIMEN MUST BE SENT TO [facility] FOR PROCESSING Performed By: #### L [id number] ####Maint Mechanic: VIVIAN PANTOJA ([phone])[facility])[address] [place] [address] BETA 1 0.4 g/dl Normal 0.3-0.6 [facility] Comment on above: Order Comment: THIS IS A CARVE-OUT LAB: SPECIMEN MUST BE SENT TO [facility] FOR PROCESSING Performed By: #### L [id number] ####Maint Mechanic: VIVIAN PANTOJA ([phone])[facility])[address] [place] [address] BETA 2 0.3 g/dl Normal 0.3-0.5 [facility] Comment on above: Order Comment: THIS IS A CARVE-OUT LAB: SPECIMEN MUST BE SENT TO [facility] FOR PROCESSING Performed By: #### L [id number] ####Maint Mechanic: VIVIAN PANTOJA ([phone])[facility])[address] [place] [address] GAMMA GLOBULIN 0.5 g/dL Normal 0.4-1.4 [facility] Comment on above: Order Comment: THIS IS A CARVE-OUT LAB: SPECIMEN MUST BE SENT TO [facility] FOR PROCESSING Performed By: #### L [id number] ####Maint Mechanic: VIVIAN PANTOJA ([phone])[facility])[address] [place] [address] PROTEIN FRACTION (INTERPRETATION) IN SER/PLAS BY ELECTROPHORESIS See Below Normal [facility] Comment on above: Order Comment: THIS IS A CARVE-OUT LAB: SPECIMEN MUST BE SENT TO [facility] FOR PROCESSING Result Comment: Neil t band present in the gamma region.The band has a concentration of 0.16 g/dL. An Immunofixation is recommended. Performed By: #### L [id number] ####Maint Mechanic: VIVIAN PANTOJA ([phone])[facility] ([facility])[address] [place] [address] RELEASED BY Vivian Pantoja M.D. [facility] Comment on above: Order Comment: THIS IS A CARVE-OUT LAB: SPECIMEN MUST BE SENT TO [facility] FOR PROCESSING Result Comment: This is an appended report. These results have been appended to a previously preliminary verified report. Performed By: #### L [id number] ####Maint Mechanic: VIVIAN PANTOJA ([phone])[facility] ([facility])[address] [place] [address] REVIEWED BY Noe Oropeza, Ph.D. [facility] Comment on above: Order Comment: THIS IS A CARVE-OUT LAB: SPECIMEN MUST BE SENT TO [facility] FOR PROCESSING Performed By: #### L [id number] ####Maint Mechanic: VIVIAN PANTOJA ([phone])[facility] ([facility])[address] [place] [address] VITAMIN B12on 06-21-2024 Cobalamin (Vitamin B12) [Mass/Vol] 1023 pg/mL High 213-816 [facility] Comment on above: Performed By: #### L AB17, LAB67, LAB68 ####Maint Mechanic: VIVIAN PANTOJA ([phone])[facility] ([facility])[address] [place] [address] Vitamin B12on 06-21-2024 Cobalamin (Vitamin B12) [Mass/Vol] 1023 pg/mL High 213 - 816 pg/mL [facility] 29on 06-19-2024 29 Addended by: NESTOR MENDOZA on: 06/21/2024 11:16 AM Modules accepted: Orders Normal [facility] Progress Noteon 06-19-2024 Progress Note Normal [facility] 36on 06-12-2024 36 Noted Normal [facility] 36on 06-09-2024 36 Normal [facility] Culture, Blood (WB)on 2024 CUB Blood cultures x2, f rom two different sites No growth in 5 days. Normal [facility] Comment on above: Performed By: #### L 500.2500, L100.0100, L501.5425, L503.6620 #### [facility] [address] [place], [address] Absolute lymphocyte countOrd ered By: Raulevelyn Helton on 06-05-2024 Lymphocytes Auto (Unsp spec) [#/Vol] 0.59 10*3/uL Low 0.83-4.51 [facility] Absolute neutrophil countOrd ered By: Raulevelyn Helton on 06-05-2024 Neutrophils (Bld) [#/Vol] 10.7 10*3/uL High 2.0-7.7 [facility] Anion gap in Serum or Plasma Ordered By: Raul Helton on 06-05-2024 Anion gap [Moles/Vol] 11 mmol/L 5-15 [facility] Automated lymphocyte count a s percentage of total leukocytesOrdered By: Raul Helton on 06-05-2024 Lymphocytes/100 WBC Auto (Unsp spec) 4.6 % Low 19-41 [facility] BUN/creatinine ratioOrdered By: Raul Helton on 06-05-2024 Urea nitrogen/Creatinine [Mass ratio] 43.8 mg/mg High 10-20 [facility] Basic Metabolic Profile (BMP )on 06-05-2024 BUN/CRE 43.8 RATIO High 10-20 [facility] Comment on above: Performed By: #### L 500.4050 #### [facility] [address] [place], [address] Calcium [Mass/Vol] 9.7 mg/dL Normal 7.6-11.0 [facility] Comment on above: Performed By: #### L 500.4050 #### [facility] [address] [place], [address] Chloride [Moles/Vol] 101 mmol/L Normal 98-108 [facility] Comment on above: Performed By: #### L 500.4050 #### [facility] [address] [place], [address] CO2 [Moles/Vol] 29.0 mmol/L Normal 21.0-32.0 [facility] Comment on above: Performed By: #### L 500.4050 #### [facility] [address] [place], [address] Creatinine [Mass/Vol] 0.84 mg/dL Normal 0.70-1.20 [facility] Comment on above: Performed By: #### L 500.4050 #### [facility] [address] [place], [address] ECRCL 62.66 ml/min Normal 50-250 [facility] Comment on above: Performed By: #### L 500.4050 #### [facility] [address] [place], [address] GAP 11 Normal 5-15 [facility] Comment on above: Performed By: #### L 500.4050 #### [facility] [address] [place], [address] GFR/1.73 sq M.predicted among non-blacks MDRD (S/P/Bld) [Vol rate/Area] 74 mL/min/{1.73_m2} Normal >60 [facility] Comment on above: Result Comment: mL/m in/1.73m2 CKD-EPI Creatinine Equation (2020) Performed By: #### L 500.4050 #### [facility] [address] [place], [address] Glucose [Mass/Vol] 161 mg/dL High 70-99 [facility] Comment on above: Performed By: #### L 500.4050 #### [facility] [address] [place], [address] Potassium [Moles/Vol] 3.9 mmol/L Normal 3.3-5.1 [facility] Comment on above: Performed By: #### L 500.4050 #### [facility] [address] [place], [address] Sodium [Moles/Vol] 141 mmol/L Normal 133-145 [facility] Comment on above: Performed By: #### L 500.4050 #### [facility] [address] [place], [address] Urea nitrogen [Mass/Vol] 37 mg/dL High 4- [facility] Comment on above: Performed By: #### L 500.4050 #### [facility] [address] [place], [address] Basophil percentageOrdered B y: Raul Helton on 06-05-2024 Basophils/100 WBC (Bld) 0.2 % 0-1 [facility] CBC W/Diff, Automatedon - Absolute Lymph 0.59 X10 3/uL Low 0.83-4.51 [facility] Comment on above: Performed By: #### L 500.4050 #### [facility] [address] [place], [address] Absolute Neut 10.7 X10 3/uL High 2.0-7.7 [facility] Comment on above: Performed By: #### L 500.4050 #### [facility] [address] [place], [address] Basophils/100 WBC (Bld) 0.2 % Normal 0-1 [facility] Comment on above: Performed By: #### L 500.4050 #### [facility] [address] [place], [address] Eosinophils/100 WBC (Bld) 0.0 % Normal 0-5 [facility] Comment on above: Performed By: #### L 500.4050 #### [facility] [address] [place], [address] Erythrocyte distribution width (RBC) [Ratio] 17.2 % High 11.6-14.6 [facility] Comment on above: Performed By: #### L 500.4050 #### [facility] [address] [place], [address] Hematocrit (Bld) [Volume fraction] 29.4 % Low 37-47 [facility] Comment on above: Performed By: #### L 500.4050 #### [facility] [address] [place], [address] Hemoglobin (Bld) [Mass/Vol] 8.7 g/dL Low 12.0-15.0 [facility] Comment on above: Performed By: #### L 500.4050 #### [facility] [address] [place], [address] IG% 1.900 High 0.0-0.9 [facility] Comment on above: Result Comment: IG% - Immature Granulocytes (promyelocytes, myelocytes and metamyelocytes) > 1% indicates that a LEFT SHIFT is Present. Performed By: #### L 500.4050 #### [facility] [address] [place], [address] Lymphocytes/100 WBC (Bld) 4.6 % Low 19-41 [facility] Comment on above: Performed By: #### L 500.4050 #### [facility] [address] [place], [address] MCH (RBC) [Entitic mass] 29.2 pg Normal 27.0-32.0 [facility] Comment on above: Performed By: #### L 500.4050 #### [facility] [address] [place], [address] MCHC (RBC) [Mass/Vol] 29.6 g/dL Low 32-36 [facility] Comment on above: Performed By: #### L 500.4050 #### [facility] [address] [place], [address] MCV (RBC) [Entitic vol] 98.7 fL Normal 81-99 [facility] Comment on above: Performed By: #### L 500.4050 #### [facility] [address] [place], [address] Monocytes/100 WBC (Bld) 9.0 % Normal 0-10 [facility] Comment on above: Performed By: #### L 500.4050 #### [facility] [address] [place], [address] Neutrophils/100 WBC (Bld) 84.3 % High 47-70 [facility] Comment on above: Performed By: #### L 500.4050 #### [facility] [address] [place], [address] Nucleated RBC (Bld) [#/Vol] 0.2 10*3/uL Normal 0-5 [facility] Comment on above: Performed By: #### L 500.4050 #### [facility] [address] [place], [address] Platelet mean volume (Bld) [Entitic vol] 14.3 fL High 6.2-12.0 [facility] Comment on above: Performed By: #### L 500.4050 #### [facility] [address] [place], [address] Platelets (Bld) [#/Vol] 90 10*3/uL Low 150-450 [facility] Comment on above: Performed By: #### L 500.4050 #### [facility] [address] [place], [address] RBC (Bld) [#/Vol] 2.98 10*6/uL Low 4.2-5.4 [facility] Comment on above: Performed By: #### L 500.4050 #### [facility] [address] [place], [address] RDW SD 62.4 fl High 35.1-43.9 [facility] Comment on above: Performed By: #### L 500.4050 #### [facility] [address] [place], [address] WBC (Bld) [#/Vol] 12.7 10*3/uL High 4.4-11.0 [facility] Comment on above: Performed By: #### L 500.4050 #### [facility] [address] [place], [address] Carbon dioxide, total [Moles /volume] in Central venous bloodOrdered By: Raul Helton on 06-05-2024 CO2 [Moles/Vol] 29.0 mmol/L 21.0-32.0 [facility] Chloride assayOrdered By: Shy [place] on 06-05-2024 Chloride [Moles/Vol] 101 mmol/L 98-108 [facility] Electrocardiogram reportOrde red By: Jermaine Hagen on 06-05-2024 EKG study [facility] [address] [place] [address] 12 Lead EKG 06/02/24 1054 MR#: [id number] Acct: [id number] Name: ALTA BAKER Rep #:[id number] : 1950 74 From: Jermaine Hagen MD Attending Dr: Dr. Raul Helton MD Status: ADM IN Ordering Dr: Alyce Morel DO Date: Location: [facility] Sex: F C Admitted: 06/02/24 Test Reason [...] ECG Confirmed by XIAO POLANCO, JERMAINE ([id number]), newspaper editor KRISSY MORALES ([id number]) on 56:46:43 AM Referred By: Wilbert Umanzor Confirmed By: JERMAINE HAGEN MD 06/05/24 0646 Date _ Jermaine Hagen MD CC: Dr. Wilbert Umanzor, DO; Dr. Kory Ibarra DO; Dr. Raul Helton MD; Dr. Alyce Morel DO ~ Signed [facility] Work Phone: [phone] Eosinophil percentageOrdered By: Raul Helton on 06-05-2024 Eosinophils/100 WBC (Bld) 0.0 % 0-5 [facility] Erythrocyte distribution wid th ratioOrdered By: Raul Helton on 06-05-2024 Erythrocyte distribution width (RBC) [Ratio] 17.2 % High 11.6-14.6 [facility] Erythrocyte distribution wid th standard deviationOrdered By: Raul Helton on 06-05-2024 Erythrocyte distribution width (RBC) [Entitic vol] 62.4 fL High 35.1-43.9 [facility] Erythrocyte distribution width (RBC) [Ratio] 62.4 fl High 35.1-43.9 [facility] Estimation of creatinine shelly aranceOrdered By: Raul Helton on 06-05-2024 Estimated Creatinine Clearance Calc 62.66 ml/min 50-250 [facility] GFR/1.73 sq M.predicted austin g non-blacks MDRD (S/P/Bld) [Vol rate/Area]Ordered By: Raul Helton on 06-05-2024 Estimated GFR (MDRD) Non-Af Amer 74 >60 [facility] Comment on above: mL/min/1.73m2 CKD-EP I Creatinine Equation (2020) Glomerular filtration rate ( GFR) estimation/1.73 sq m using serum, plasma, or whole bOrdered By: Raul Helton on 06-05-2024 GFR/1.73 sq M.predicted among non-blacks MDRD (S/P/Bld) [Vol rate/Area] 74 mL/min/{1.73_m2} >60 [facility] Comment on above: mL/min/1.73m2 CKD-EP I Creatinine Equation (2020) Hematocrit Auto (Bld) [Volum e fraction]Ordered By: Raul Helton on 06-05-2024 Hematocrit (Bld) [Volume fraction] 29.4 % Low 37-47 [facility] Hemoglobin measurementOrdere d By: Raul Helton on 06-05-2024 Hemoglobin (Bld) [Mass/Vol] 8.7 g/dL Low 12.0-15.0 [facility] Immature granulocytes/100 WB C Auto (Bld)Ordered By: Raul Helton on 06-05-2024 Immature granulocytes/100 WBC (Bld) 1.900 % High 0.0-0.9 [facility] Comment on above: IG% - Immature Granu locytes (promyelocytes, myelocytes and metamyelocytes) > 1% indicates that a LEFT SHIFT is Present. Lymphocytes Auto (Unsp spec) [#/Vol]Ordered By: Raul Helton on 06-05-2024 Lymphocytes (Bld) [#/Vol] 0.59 10*3/uL Low 0.83-4.51 [facility] Lymphocytes/100 WBC Auto (Un sp spec)Ordered By: Raul Helton on 06-05-2024 Lymphocytes/100 WBC (Bld) 4.6 % Low 19-41 [facility] MCV (mean corpuscular volume ) determinationOrdered By: Raul Helton on 06-05-2024 MCV (RBC) [Entitic vol] 98.7 fL 81-99 [facility] Mean corpuscular hemoglobin (MCH) determinationOrdered By: Raul Helton on 06-05-2024 MCH (RBC) [Entitic mass] 29.2 pg 27.0-32.0 [facility] Mean corpuscular hemoglobin concentration (MCHC) determinationOrdered By: Raul Helton on 06-05-2024 MCHC (RBC) [Mass/Vol] 29.6 g/dL Low 32-36 [facility] Mean platelet volume determi nationOrdered By: Raul Helton on 06-05-2024 Platelet mean volume (Bld) [Entitic vol] 14.3 fL High 6.2-12.0 [facility] Monocyte percentageOrdered B y: Raul Helton on 06-05-2024 Monocytes/100 WBC (Bld) 9.0 % 0-10 [facility] Neutrophil percentageOrdered By: Raul Helton on 06-05-2024 Neutrophils/100 WBC (Bld) 84.3 % High 47-70 [facility] Nucleated red blood cell per centageOrdered By: Raul Helton on 06-05-2024 Nucleated RBC/100 WBC (Bld) [Ratio] 0.2 % 0-5 [facility] Platelet countOrdered By: Shy Helton on 06-05-2024 Platelets (Bld) [#/Vol] 90 10*3/uL Low 150-450 [facility] Potassium (Unsp spec) [Mass/ Vol]Ordered By: Raul Helton on 06-05-2024 Potassium [Moles/Vol] 3.9 mmol/L 3.3-5.1 [facility] Potassium measurement (mass/ volume)Ordered By: Raul Helton on 06-05-2024 Potassium (Unsp spec) [Mass/Vol] 3.9 mmol/L 3.3-5.1 [facility] RBC Auto (Bld) [#/Vol]Ordere d By: Raul Helton on 06-05-2024 RBC (Bld) [#/Vol] 2.98 10*6/uL Low 4.2-5.4 [facility] Serum creatinine measurement (mass/volume)Ordered By: Raul Helton on 06-05-2024 Creatinine [Mass/Vol] 0.84 mg/dL 0.70-1.20 [facility] Serum glucose measurement (m ass/volume)Ordered By: Raul Helton on 06-05-2024 Glucose [Mass/Vol] 161 mg/dL High 70-99 [facility] Serum or plasma calcium betzaida urement (mass/volume)Ordered By: Raul Helton on 06-05-2024 Calcium [Mass/Vol] 9.7 mg/dL 7.6-11.0 [facility] Serum or plasma urea nitroge n measurement (mass/volume)Ordered By: Raul Helton on 06-05-2024 Urea nitrogen [Mass/Vol] 37 mg/dL High 4-19 [facility] Sodium levelOrdered By: Mani Helton on 06-05-2024 Sodium [Moles/Vol] 141 mmol/L 133-145 [facility] White blood cell (WBC) count Ordered By: Raul Helton on 06-05-2024 WBC (Bld) [#/Vol] 12.7 10*3/uL High 4.4-11.0 [facility] Basic Metabolic Profile (BMP )on 06-04-2024 BUN/CRE 39.9 RATIO High 10-20 [facility] Comment on above: Performed By: #### L 500.4050 #### [facility] [address] [place], [address] Calcium [Mass/Vol] 9.6 mg/dL Normal 7.6-11.0 [facility] Comment on above: Performed By: #### L 500.4050 #### [facility] [address] [place], [address] Chloride [Moles/Vol] 101 mmol/L Normal 98-108 [facility] Comment on above: Performed By: #### L 500.4050 #### [facility] [address] [place], [address] CO2 [Moles/Vol] 26.4 mmol/L Normal 21.0-32.0 [facility] Comment on above: Performed By: #### L 500.4050 #### [facility] [address] [place], [address] Creatinine [Mass/Vol] 0.94 mg/dL Normal 0.70-1.20 [facility] Comment on above: Performed By: #### L 500.4050 #### [facility] [address] [place], [address] ECRCL 55.99 ml/min Normal 50-250 [facility] Comment on above: Performed By: #### L 500.4050 #### [facility] [address] [place], [address] GAP 13 Normal 5-15 [facility] Comment on above: Performed By: #### L 500.4050 #### [facility] [address] [place], [address] GFR/1.73 sq M.predicted among non-blacks MDRD (S/P/Bld) [Vol rate/Area] 64 mL/min/{1.73_m2} Normal >60 [facility] Comment on above: Result Comment: mL/m in/1.73m2 CKD-EPI Creatinine Equation (2020) Performed By: #### L 500.4050 #### [facility] [address] [place], [address] Glucose [Mass/Vol] 153 mg/dL High 70-99 [facility] Comment on above: Performed By: #### L 500.4050 #### [facility] [address] [place], [address] Potassium [Moles/Vol] 4.1 mmol/L Normal 3.3-5.1 [facility] Comment on above: Performed By: #### L 500.4050 #### [facility] [address] [place], [address] Sodium [Moles/Vol] 140 mmol/L Normal 133-145 [facility] Comment on above: Performed By: #### L 500.4050 #### [facility] [address] [place], [address] Urea nitrogen [Mass/Vol] 37 mg/dL High 4-19 [facility] Comment on above: Performed By: #### L 500.4050 #### [facility] [address] [place], [address] CBC W/Diff, Automatedon 03-2 -2024 Absolute Lymph 0.77 X10 3/uL Low 0.83-4.51 [facility] Comment on above: Performed By: #### L 500.4050 #### [facility] [address] [place], [address] Absolute Neut 12.3 X10 3/uL High 2.0-7.7 [facility] Comment on above: Performed By: #### L 500.4050 #### [facility] [address] [place], [address] Basophils/100 WBC (Bld) 0.1 % Normal 0-1 [facility] Comment on above: Performed By: #### L 500.4050 #### [facility] [address] [place], [address] Eosinophils/100 WBC (Bld) 0.0 % Normal 0-5 [facility] Comment on above: Performed By: #### L 500.4050 #### [facility] [address] [place], [address] Erythrocyte distribution width (RBC) [Ratio] 17.8 % High 11.6-14.6 [facility] Comment on above: Performed By: #### L 500.4050 #### [facility] [address] [place], [address] Hematocrit (Bld) [Volume fraction] 29.1 % Low 37-47 [facility] Comment on above: Performed By: #### L 500.4050 #### [facility] [address] [place], [address] Hemoglobin (Bld) [Mass/Vol] 8.7 g/dL Low 12.0-15.0 [facility] Comment on above: Performed By: #### L 500.4050 #### [facility] [address] [place], [address] IG% 2.200 High 0.0-0.9 [facility] Comment on above: Result Comment: IG% - Immature Granulocytes (promyelocytes, myelocytes and metamyelocytes) > 1% indicates that a LEFT SHIFT is Present. Performed By: #### L 500.4050 #### [facility] [address] [place], [address] Lymphocytes/100 WBC (Bld) 5.3 % Low 19-41 [facility] Comment on above: Performed By: #### L 500.4050 #### [facility] [address] [place], [address] MCH (RBC) [Entitic mass] 29.7 pg Normal 27.0-32.0 [facility] Comment on above: Performed By: #### L 500.4050 #### [facility] [address] [place], [address] MCHC (RBC) [Mass/Vol] 29.9 g/dL Low 32-36 [facility] Comment on above: Performed By: #### L 500.4050 #### [facility] [address] [place], [address] MCV (RBC) [Entitic vol] 99.3 fL High 81-99 [facility] Comment on above: Performed By: #### L 500.4050 #### [facility] [address] [place], [address] Monocytes/100 WBC (Bld) 8.4 % Normal 0-10 [facility] Comment on above: Performed By: #### L 500.4050 #### [facility] [address] [place], [address] Neutrophils/100 WBC (Bld) 84.0 % High 47-70 [facility] Comment on above: Performed By: #### L 500.4050 #### [facility] [address] [place], [address] Nucleated RBC (Bld) [#/Vol] 0.3 10*3/uL Normal 0-5 [facility] Comment on above: Performed By: #### L 500.4050 #### [facility] [address] [place], [address] Platelet mean volume (Bld) [Entitic vol] 13.3 fL High 6.2-12.0 [facility] Comment on above: Performed By: #### L 500.4050 #### [facility] [address] [place], [address] Platelets (Bld) [#/Vol] 90 10*3/uL Low 150-450 [facility] Comment on above: Performed By: #### L 500.4050 #### [facility] [address] [place], [address] RBC (Bld) [#/Vol] 2.93 10*6/uL Low 4.2-5.4 [facility] Comment on above: Performed By: #### L 500.4050 #### [facility] [address] [place], [address] RDW SD 63.7 fl High 35.1-43.9 [facility] Comment on above: Performed By: #### L 500.4050 #### [facility] [address] [place], [address] WBC (Bld) [#/Vol] 14.6 10*3/uL High 4.4-11.0 [facility] Comment on above: Performed By: #### L 500.4050 #### [facility] [address] [place], [address] Basic Metabolic Profile (BMP )on 06-03-2024 BUN/CRE 29.5 RATIO High 10-20 [facility] Comment on above: Performed By: #### L 100.0100, L500.4050 #### [facility] [address] [place], [address] Calcium [Mass/Vol] 9.6 mg/dL Normal 7.6-11.0 [facility] Comment on above: Performed By: #### L 100.0100, L500.4050 #### [facility] [address] [place], [address] Chloride [Moles/Vol] 103 mmol/L Normal 98-108 [facility] Comment on above: Performed By: #### L 100.0100, L500.4050 #### [facility] [address] [place], [address] CO2 [Moles/Vol] 24.5 mmol/L Normal 21.0-32.0 [facility] Comment on above: Performed By: #### L 100.0100, L500.4050 #### [facility] [address] [place], [address] Creatinine [Mass/Vol] 1.09 mg/dL Normal 0.70-1.20 [facility] Comment on above: Performed By: #### L 100.0100, L500.4050 #### [facility] [address] [place], [address] ECRCL 48.29 ml/min Low 50-250 [facility] Comment on above: Performed By: #### L 100.0100, L500.4050 #### [facility] [address] [place], [address] GAP 15 Normal 5-15 [facility] Comment on above: Performed By: #### L 100.0100, L500.4050 #### [facility] [address] [place], [address] GFR/1.73 sq M.predicted among non-blacks MDRD (S/P/Bld) [Vol rate/Area] 54 mL/min/{1.73_m2} Low >60 [facility] Comment on above: Result Comment: mL/m in/1.73m2 CKD-EPI Creatinine Equation (2020) Performed By: #### L 100.0100, L500.4050 #### [facility] [address] [place], [address] Glucose [Mass/Vol] 157 mg/dL High 70-99 [facility] Comment on above: Performed By: #### L 100.0100, L500.4050 #### [facility] [address] [place], [address] Potassium [Moles/Vol] 4.2 mmol/L Normal 3.3-5.1 [facility] Comment on above: Performed By: #### L 100.0100, L500.4050 #### [facility] [address] [place], [address] Sodium [Moles/Vol] 142 mmol/L Normal 133-145 [facility] Comment on above: Performed By: #### L 100.0100, L500.4050 #### [facility] Laboratory [address] [place], [address] Urea nitrogen [Mass/Vol] 32 mg/dL High 4-19 [facility] Comment on above: Performed By: #### L 100.0100, L500.4050 #### [facility] Laboratory [address] [place], [address] CBC-Complete Blood Cnt No Di ffon 06-03-2024 Hemoglobin (Bld) [Mass/Vol] 8.8 g/dL Low 12.0-15.0 [facility] Comment on above: Order Comment: TERRI Acevedo PREVIOUS SPECIMEN REJECTED DUE TO HEMOLYSIS. 12/02/23 0712 Curt Thacker. Result Comment: SILVINA NEGRON WITH NURSE Performed By: #### L 500.4050 #### [facility] [address] [place], [address] Erythrocyte distribution width (RBC) [Ratio] 18.1 % High 11.6-14.6 [facility] Comment on above: Order Comment: REDRA W. PREVIOUS SPECIMEN REJECTED DUE TO HEMOLYSIS. 12/02/23711 Curt Thacker. Performed By: #### L 500.4050 #### [facility] [address] [place], [address] Hematocrit (Bld) [Volume fraction] 29.9 % Low 37-47 [facility] Comment on above: Order Comment: REDRA W. PREVIOUS SPECIMEN REJECTED DUE TO HEMOLYSIS. 12/02/23711 Curt Thacker. Performed By: #### L 500.4050 #### [facility] [address] [place], [address] MCH (RBC) [Entitic mass] 29.1 pg Normal 27.0-32.0 [facility] Comment on above: Order Comment: REDRA W. PREVIOUS SPECIMEN REJECTED DUE TO HEMOLYSIS. 12/02/23711 Curt Thacker. Performed By: #### L 500.4050 #### [facility] [address] [place], [address] MCHC (RBC) [Mass/Vol] 29.4 g/dL Low 32-36 [facility] Comment on above: Order Comment: REDRA W. PREVIOUS SPECIMEN REJECTED DUE TO HEMOLYSIS. 12/02/23711 Curt Thacker. Performed By: #### L 500.4050 #### [facility] [address] [place], [address] MCV (RBC) [Entitic vol] 99.0 fL Normal 81-99 [facility] Comment on above: Order Comment: REDRA W. PREVIOUS SPECIMEN REJECTED DUE TO HEMOLYSIS. 12/02/23711 Curt Thacker. Performed By: #### L 500.4050 #### [facility] [address] [place], [address] Platelet mean volume (Bld) [Entitic vol] 13.9 fL High 6.2-12.0 [facility] Comment on above: Order Comment: REDRA W. PREVIOUS SPECIMEN REJECTED DUE TO HEMOLYSIS. 12/02/23711 Curt Thacker. Performed By: #### L 500.4050 #### [facility] [address] [place], [address] Platelets (Bld) [#/Vol] 92 10*3/uL Low 150-450 [facility] Comment on above: Order Comment: REDRA W. PREVIOUS SPECIMEN REJECTED DUE TO HEMOLYSIS. 12/02/23711 Curt Thacker. Performed By: #### L 500.4050 #### [facility] [address] [place], [address] RBC (Bld) [#/Vol] 3.02 10*6/uL Low 4.2-5.4 [facility] Comment on above: Order Comment: REDRA W. PREVIOUS SPECIMEN REJECTED DUE TO HEMOLYSIS. 12/02/23711 Curt Thacker. Performed By: #### L 500.4050 #### [facility] [address] [place], [address] RDW SD 64.7 fl High 35.1-43.9 [facility] Comment on above: Order Comment: REDRA W. PREVIOUS SPECIMEN REJECTED DUE TO HEMOLYSIS. 12/02/23711 Curt Thacker. Performed By: #### L 500.4050 #### [facility] [address] [place], [address] WBC (Bld) [#/Vol] 12.3 10*3/uL High 4.4-11.0 [facility] Comment on above: Order Comment: REDRA W. PREVIOUS SPECIMEN REJECTED DUE TO HEMOLYSIS. 12/02/23711 Curt Thacker. Performed By: #### L 500.4050 #### [facility] [address] [place], [address] HCT Normal 37-47 [facility] Comment on above: Result Comment: This specimen has been REJECTED due to Laboratory criteria: POSSIBLE ERRONEOUS RESULTS. DMILLER has been notified of need of recollection. 06/03/24 0542 Serjio R Maldonado Performed By: #### L 100.0100, L500.4050 #### [facility] [address] [place], [address] HGB Normal 12.0-15.0 [facility] Comment on above: Result Comment: This specimen has been REJECTED due to Laboratory criteria: POSSIBLE ERRONEOUS RESULTS. DMILLER has been notified of need of recollection. 06/03/24 0542 Serjio R Maldonado Performed By: #### L 100.0100, L500.4050 #### [facility] [address] [place], [address] MCH Normal 27.0-32.0 [facility] Comment on above: Result Comment: This specimen has been REJECTED due to Laboratory criteria: POSSIBLE ERRONEOUS RESULTS. DMILLER has been notified of need of recollection. 06/03/24541 Serjio R Maldonado Performed By: #### L 100.0100, L500.4050 #### [facility] [address] [place], [address] MCHC Normal 32-36 [facility] Comment on above: Result Comment: This specimen has been REJECTED due to Laboratory criteria: POSSIBLE ERRONEOUS RESULTS. DMILLER has been notified of need of recollection. 06/03/2442 Serjio R Maldonado Performed By: #### L 100.0100, L500.4050 #### [facility] [address] [place], [address] MCV Normal 81-99 [facility] Comment on above: Result Comment: This specimen has been REJECTED due to Laboratory criteria: POSSIBLE ERRONEOUS RESULTS. DMILLER has been notified of need of recollection. 06/03/2442 Serjio R Maldonado Performed By: #### L 100.0100, L500.4050 #### [facility] [address] [place], [address] PLT Normal 150-450 [facility] Comment on above: Result Comment: This specimen has been REJECTED due to Laboratory criteria: POSSIBLE ERRONEOUS RESULTS. DMILLER has been notified of need of recollection. 06/03/24 0542 Serjio R Maldonado Performed By: #### L 100.0100, L500.4050 #### [facility] [address] [place], [address] RBC Normal 4.2-5.4 [facility] Comment on above: Result Comment: This specimen has been REJECTED due to Laboratory criteria: POSSIBLE ERRONEOUS RESULTS. DMILLER has been notified of need of recollection. 06/03/24 0542 Serjio R Maldonado Performed By: #### L 100.0100, L500.4050 #### [facility] [address] [place], [address] RDW CV Normal 11.6-14.6 [facility] Comment on above: Result Comment: This specimen has been REJECTED due to Laboratory criteria: POSSIBLE ERRONEOUS RESULTS. DMILLER has been notified of need of recollection. 06/03/24 0542 Serjio R Maldonado Performed By: #### L 100.0100, L500.4050 #### [facility] [address] [place], [address] RDW SD Normal 35.1-43.9 [facility] Comment on above: Result Comment: This specimen has been REJECTED due to Laboratory criteria: POSSIBLE ERRONEOUS RESULTS. DMILLER has been notified of need of recollection. 06/03/24 0542 Serjio R Maldonado Performed By: #### L 100.0100, L500.4050 #### [facility] [address] [place], [address] WBC Normal 4.4-11.0 [facility] Comment on above: Result Comment: This specimen has been REJECTED due to Laboratory criteria: POSSIBLE ERRONEOUS RESULTS. DMILLER has been notified of need of recollection. 06/03/24 0542 Serjio R Maldonado Performed By: #### L 100.0100, L500.4050 #### [facility] [address] [place], [address] Echocardiogram study reportO rdered By: Jermaine Hagen on 06-03-[address] [facility] [address] [place] [address] Echo Complete 06/03/24 1026 MR#: [id number] Acct: [id number] Name: ALTA BAKER Rep #:[id number] : 1950 74 From: Jermaine Sotomayor Attending Dr: Dr. Raul [place] MD Status: ADM IN Ordering Dr: Wilbert Umanzor te: 06/02/24 Location: [facility] Sex: F C Admitted: 06/02/24 Reason For [...] Dictated: 06/03/24 1026 Date Transcribed: 06/03/24 1222 Developer Designer: Signed [facility] Work Phone: 12 Lead EKGon 06-02-2024 12 Lead EKG [facility] Cardiovascular Services [address] [place] [address] 12 Lead EKG 06/02/24 1054 MR#: [id number] Acct: [id number] Name: ALTA BAKER Rep #: [id number] : 1950 74 From: Jermaine Hagen MD Attending Dr: Dr. Raul [place] MD Status: ADM IN Ordering Dr: Alyce Morel DO Date: 06/02/24 Location: [facility] Sex: F C Admitted: 06/02/24 Test Reason [...] ECG Confirmed by JERMAINE HAGEN MD ([id number]), newspaper editor KRISSY MORALES ([id number]) on 06/05/2024 6:46:43 AM Referred By: Wilbert Umanzor Confirmed By: JERMAINE HAGEN MD 06/05/24 0646 Date Jermaine Hagen MD CC: Dr. Wilbert Umanzor DO; Dr. Kory Ibarra DO; Dr. Raul [place] MD; Dr. Alyce Morel DO Signed Normal [facility] Absolute neutrophil countOrd ered By: Alyce Morel on 06-02-2024 Neutrophils (Bld) [#/Vol] 5.5 10*3/uL 2.0-7.7 [facility] Anion gap in Serum or Plasma Ordered By: Alyce Morel on 06-02-2024 Anion gap [Moles/Vol] 13 mmol/L 07-27 [facility] BUN/creatinine ratioOrdered By: Alyce Morel on 06-02-2024 Urea nitrogen/Creatinine [Mass ratio] 19.7 mg/mg - [facility] Basic Metabolic Profile (BMP )on 06-02-2024 BUN/CRE 19.7 RATIO Normal 01-01 [facility] Comment on above: Performed By: #### L 100.0100, L500.4050 #### [facility] [address] [place], [address] Calcium [Mass/Vol] 8.8 mg/dL Normal 7.6-11.0 [facility] Comment on above: Performed By: #### L 100.0100, L500.4050 #### [facility] [address] [place], [address] Chloride [Moles/Vol] 107 mmol/L Normal 98-108 [facility] Comment on above: Performed By: #### L 100.0100, L500.4050 #### [facility] [address] [place], [address] CO2 [Moles/Vol] 20.8 mmol/L Low 21.0-32.0 [facility] Comment on above: Performed By: #### L 100.0100, L500.4050 #### [facility] [address] [place], [address] Creatinine [Mass/Vol] 0.69 mg/dL Low 0.70-1.20 [facility] Comment on above: Performed By: #### L 100.0100, L500.4050 #### [facility] [address] [place], [address] ECRCL 67.37 ml/min Normal 50-250 [facility] Comment on above: Performed By: #### L 100.0100, L500.4050 #### [facility] [address] [place], [address] GAP 13 Normal 5-15 [facility] Comment on above: Performed By: #### L 100.0100, L500.4050 #### [facility] [address] [place], [address] GFR/1.73 sq M.predicted among non-blacks MDRD (S/P/Bld) [Vol rate/Area] 92 mL/min/{1.73_m2} Normal >60 [facility] Comment on above: Result Comment: mL/m in/1.73m2 CKD-EPI Creatinine Equation (2020) Performed By: #### L 100.0100, L500.4050 #### [facility] [address] [place], [address] Glucose [Mass/Vol] 175 mg/dL High 70-99 [facility] Comment on above: Performed By: #### L 100.0100, L500.4050 #### [facility] [address] [place], [address] Potassium [Moles/Vol] 3.6 mmol/L Normal 3.3-5.1 [facility] Comment on above: Performed By: #### L 100.0100, L500.4050 #### [facility] [address] [place], [address] Sodium [Moles/Vol] 141 mmol/L Normal 133-145 [facility] Comment on above: Performed By: #### L 100.0100, L500.4050 #### [facility] [address] [place], [address] Urea nitrogen [Mass/Vol] 14 mg/dL Normal 4-19 [facility] Comment on above: Performed By: #### L 100.0100, L500.4050 #### [facility] [address] [place], [address] Basophil percentageOrdered B y: Remus Ungur on 06-02-2024 Basophils/100 WBC (Bld) 0.6 % 0-1 [facility] Blood cultureOrdered By: Rem us Ungur on 06-02-2024 Bacteria identified Cx Nom (Bld) No growth in 5 days. [facility] CBC W/Diff, Automatedon 05-14 Absolute Lymph 1.86 X10 3/uL Normal 0.83-4.51 [facility] Comment on above: Performed By: #### L 100.0100, L500.4050 #### [facility] [address] [place], [address] Absolute Neut 5.5 X10 3/uL Normal 2.0-7.7 [facility] Comment on above: Performed By: #### L 100.0100, L500.4050 #### [facility] [address] [place], [address] Basophils/100 WBC (Bld) 0.6 % Normal 0-1 [facility] Comment on above: Performed By: #### L 100.0100, L500.4050 #### [facility] [address] [place], [address] Eosinophils/100 WBC (Bld) 2.8 % Normal 0-5 [facility] Comment on above: Performed By: #### L 100.0100, L500.4050 #### [facility] [address] [place], [address] Erythrocyte distribution width (RBC) [Ratio] 13.1 % Normal 11.6-14.6 [facility] Comment on above: Performed By: #### L 100.0100, L500.4050 #### [facility] [address] [place], [address] Hematocrit (Bld) [Volume fraction] 43.0 % Normal 37-47 [facility] Comment on above: Performed By: #### L 100.0100, L500.4050 #### [facility] [address] [place], [address] Hemoglobin (Bld) [Mass/Vol] 14.0 g/dL Normal 12.0-15.0 [facility] Comment on above: Performed By: #### L 100.0100, L500.4050 #### [facility] [address] [place], [address] IG% 0.400 Normal 0.0-0.9 [facility] Comment on above: Result Comment: IG% - Immature Granulocytes (promyelocytes, myelocytes and metamyelocytes) > 1% indicates that a LEFT SHIFT is Present. Performed By: #### L 100.0100, L500.4050 #### [facility] [address] [place], [address] Lymphocytes/100 WBC (Bld) 22.6 % Normal 19-41 [facility] Comment on above: Performed By: #### L 100.0100, L500.4050 #### [facility] [address] [place], [address] MCH (RBC) [Entitic mass] 29.5 pg Normal 27.0-32.0 [facility] Comment on above: Performed By: #### L 100.0100, L500.4050 #### [facility] [address] [place], [address] MCHC (RBC) [Mass/Vol] 32.6 g/dL Normal 32-36 [facility] Comment on above: Performed By: #### L 100.0100, L500.4050 #### [facility] [address] [place], [address] MCV (RBC) [Entitic vol] 90.7 fL Normal 81-99 [facility] Comment on above: Performed By: #### L 100.0100, L500.4050 #### [facility] [address] [place], [address] Monocytes/100 WBC (Bld) 6.7 % Normal 0-10 [facility] Comment on above: Performed By: #### L 100.0100, L500.4050 #### [facility] [address] [place], [address] Neutrophils/100 WBC (Bld) 66.9 % Normal 47-70 [facility] Comment on above: Performed By: #### L 100.0100, L500.4050 #### [facility] [address] [place], [address] Nucleated RBC (Bld) [#/Vol] 0 10*3/uL Normal 0-5 [facility] Comment on above: Performed By: #### L 100.0100, L500.4050 #### [facility] [address] [place], [address] Platelet mean volume (Bld) [Entitic vol] 10.3 fL Normal 6.2-12.0 [facility] Comment on above: Performed By: #### L 100.0100, L500.4050 #### [facility] [address] [place], [address] Platelets (Bld) [#/Vol] 271 10*3/uL Normal 150-450 [facility] Comment on above: Performed By: #### L 100.0100, L500.4050 #### [facility] [address] [place], [address] RBC (Bld) [#/Vol] 4.74 10*6/uL Normal 4.2-5.4 [facility] Comment on above: Performed By: #### L 100.0100, L500.4050 #### [facility] [address] [place], [address] RDW SD 43.3 fl Normal 35.1-43.9 [facility] Comment on above: Performed By: #### L 100.0100, L500.4050 #### [facility] [address] [place], [address] WBC (Bld) [#/Vol] 8.2 10*3/uL Normal 4.4-11.0 [facility] Comment on above: Performed By: #### L 100.0100, L500.4050 #### [facility] [address] [facility] [place], [address] Carbon dioxide, total [Moles /volume] in Central venous bloodOrdered By: Alyce Morel on 06-02-2024 CO2 [Moles/Vol] 20.8 mmol/L Low 21.0-32.0 [facility] Chest 1 View (Portable)on Chest 1 View (Portable) [facility] Imaging Services [address] [place] [address] Chest 1 View (Portable) MR#: [id number] Acct: [id number] Name: ALTA BAKER Rep #: [id number] : 1950 F 74 From: Farhat Bustillo MD PCP: Dr. Kory Ibarra, DO Status: [facility] ER Study: Chest 1 View (Portable) Date of Exam: 06/02/24 Exam# [id number] Ordering Dr: Alyce Morel DO EXAM: XR Chest, 1 View CLINICAL INDICATION: DYSPNEA TECHNIQUE: Frontal view of the chest. COMPARISON: No relevant prior studies available. FINDINGS: LUNGS AND PLEURAL SPACES: See below. HEART: Cardiomegaly with mild congestion. MEDIASTINUM: Unremarkable. Normal mediastinal contour. BONES/JOINTS: Unremarkable. No acute fracture. RAD/Chest 1 View (Portable) IMPRESSION: Cardiomegaly with mild congestion. Reading Location: [facility] CC: Dr. Kory Ibarra DO; Dr. Alyce Morel DO Developer Designer: Signed Normal [facility] Chloride assayOrdered By: Luanne Morel on 06-02-2024 Chloride [Moles/Vol] 107 mmol/L 98-108 [facility] Echo Completeon 06-02-[address] [facility] Cardi[facility] Services [address] [place] [address] Echo Complete 06/03/24 1026 MR#: [id number] Acct: [id number] Name: ALTA BAKER Rep #: [id number] : 1950 74 From: Jermaine Hagen MD [...] Dictated: 06/03/24 1026 Date Transcribed: 06/03/24 1222 Developer Designer: Signed Normal [facility] Emergency Department Summary on 06-02-[address] [facility] Medical Records Department [address] [place] [address] Emergency Department Summary 06/02/24 MR#: [id number] Acct: [id number] Name: ALTA BAKER Rep #: [id number] : 1950 74 From: Alyce Morel DO PCP: Dr. Kory Ibarra DO Status:ADM IN Location: [address] History of Present Illness Chief Complaint: [...] night. Patient also with history of A-fib. [facility] Medical History (Updated 06/02/24 @ 13:23 [...] Psychiatric Psy (more content not included)... Normal [facility] Eosinophil percentageOrdered By: Alyce Morel on 06-02-2024 Eosinophils/100 WBC (Bld) 2.8 % 0-5 [facility] Erythrocyte distribution wid th ratioOrdered By: Alyce Morel on 06-02-2024 Erythrocyte distribution width (RBC) [Ratio] 13.1 % 11.6-14.6 [facility] Erythrocyte distribution wid th standard deviationOrdered By: Alyce Morel on 06-02-2024 Erythrocyte distribution width (RBC) [Entitic vol] 43.3 fL 35.1-43.9 [facility] Estimation of creatinine shelly aranceOrdered By: Alyce Morle on 06-02-2024 Estimated Creatinine Clearance Calc 67.37 ml/min 50-250 [facility] GFR/1.73 sq M.predicted austin g non-blacks MDRD (S/P/Bld) [Vol rate/Area]Ordered By: Alyce Morel on 06-02-2024 Estimated GFR (MDRD) Non-Af Amer 92 >60 [facility] Comment on above: mL/min/1.73m2 CKD-EP I Creatinine Equation (2020) H AND P Exam - [facility] 06-02-2024 H&P Exam - Hospitalist [facility] Medical Records Department [address] [place] [address] H P Exam - Hospitalist 06/02/24 1320 MR#: [id number] Acct: [id number] Name: ALTA BAEKR Rep #: [id number] : 1950 74 From: Wilbert Umanzor DO PCP: Dr. Kory Ibarra DO Status:ADM IN Location: [place] [address] HPI - General General Date of Admission: 06/02/24 Date of Service: 06/02/24 Chief Complaint: Worsening shortness of breath HPI Narrative ALTA BAKER, is a 74 F who presented to [facility] ED on 06/02/2024 with worsening shortness of breath. Patient has history of COPD and wears 1 to 2 L at baseline. Medical history also significant for permanent A-fib, HFpEF, pulmonary hypertension and depression. She receives most of her care through [facility]. She was recently hospitalized at [facility] from 04/27-05/08 for COPD exacerbation in setting [...] No other acute concerns at this time. [facility] Medical History (Updated 06/02/24 @ 18:35 [...] Unknown Verified (more content not included)... Normal [facility] Hematocrit Auto (Bld) [Volum e fraction]Ordered By: Alyce Morel on 06-02-2024 Hematocrit (Bld) [Volume fraction] 43.0 % 37-47 [facility] Hemoglobin measurementOrdere d By: Alyce Morel on 06-02-2024 Hemoglobin (Bld) [Mass/Vol] 14.0 g/dL 12.0-15.0 [facility] Immature granulocytes/100 WB C Auto (Bld)Ordered By: Alyce Morel on 06-02-2024 Immature granulocytes/100 WBC (Bld) 0.400 % 0.0-0.9 [facility] Comment on above: IG% - Immature Granu locytes (promyelocytes, myelocytes and metamyelocytes) > 1% indicates that a LEFT SHIFT is Present. Influenza virus A and B and SARS-CoV-2 (COVID-19) and Respiratory syncytial virus RNAOrdered By: Alyce Morel on 06-02-2024 SARS-CoV-2 (COVID-19) RNA STEPHANIE+probe Ql (Unsp spec) [facility] L499.0042on 06-02-2024 Trop T High Sen 23 ng/L High <=14 [facility] Comment on above: Performed By: #### M 100.638 #### [facility] Laboratory [address] [place], [address] L499.0043on 06-02-2024 Trop T High Sen Normal <=14 [facility] Comment on above: Result Comment: PER KRISSY SECURITY RESEARCHER NO LONGER NEEDED Performed By: #### L 500.4050 #### [facility] [address] [facility] [place], [address] L501.4021on 06-02-2024 Trop T High Sen 9 ng/L Normal <=14 [facility] Comment on above: Performed By: #### L 100.0100, L500.4050 #### [facility] [address] [place], [address] L503.7505on 06-02-2024 Natriuretic peptide B (Bld) [Mass/Vol] 168 pg/mL Normal <=900 [facility] Comment on above: Result Comment: Hear t Failure Unlikely: < 300 pg/mL Heart Failure Likely < 50 Years: > 450 pg/mL 50-75 Years: > 900 pg/mL >75 Years: > 1800 pg/mL Performed By: #### L 100.0100, L500.4050 #### [facility] [address] [facility] [place], [address] L509.7001on 06-02-2024 Procalcitonin 0.20 ng/mL High <=0.10 [facility] Comment on above: Result Comment: Inte [...] patient. Performed By: #### L 500.4050 #### [facility] [address] [place], [address] Laboratory - Chemistry and C hemistry - challengeOrdered By: Alyce Morel on 06-02-2024 Natriuretic peptide B (Bld) [Mass/Vol] 168 pg/mL <900 [facility] Comment on above: Heart Failure Unlike ly: < 300 pg/mLHeart Failure Likely< 50 Years: > 450 pg/mL50-75 Years: > 900 pg/mL>75 Years: > 1800 pg/mL Lactic Acidon 06-02-2024 Lactate [Moles/Vol] 1.8 mmol/L Normal 0.0-2.0 [facility] Comment on above: Order Comment: TERRI Acevedo PREVIOUS SPECIMEN REJECTED DUE TO HEMOLYSIS. 12/02/23 07 Curt Thacker. Performed By: #### L 500.4050 #### [facility] [address] [place], [address] Lactate [Moles/Vol] 3.7 mmol/L Invalid Interpretation Code 0.0-2.0 [facility] Comment on above: Order Comment: Y Result Comment: Crit ical Result(s) Called at: by:??Results read back by same. Performed By: #### L 100.0100, L500.4050 #### [facility] [address] [place], [address] Lactic acid measurementOrder ed By: Wilbert Umanzor on 06-02-2024 Lactate [Moles/Vol] 1.8 mmol/L 0.0-2.0 [facility] Lactic acid measurementOrder ed By: Alyce Morel on 06-02-2024 Lactate [Moles/Vol] 3.7 mmol/L High 0.0-2.0 [facility] Comment on above: Critical Result(s) C alled at: by: Results read back by same. Lymphocytes Auto (Unsp spec) [#/Vol]Ordered By: Alyce Morel on 06-02-2024 Lymphocytes (Bld) [#/Vol] 1.86 10*3/uL 0.83-4.51 [facility] Lymphocytes/100 WBC Auto (Un sp spec)Ordered By: Alyce Morel on 06-02-2024 Lymphocytes/100 WBC (Bld) 22.6 % 19-41 [facility] M100.678on 06-02-2024 M100.678 Pending SARS-CoV-2 (COVID 19) Negative INFLUENZA A Negative INFLUENZA B Negative RSV PCR Negative Normal [facility] Comment on above: Performed By: #### M 100.678 #### [facility] [address] [place] [address], [id number] MCV (mean corpuscular volume ) determinationOrdered By: Alyce Morel on 06-02-2024 MCV (RBC) [Entitic vol] 90.7 fL 81-99 [facility] Mean corpuscular hemoglobin (MCH) determinationOrdered By: Alyce Morel on 06-02-2024 MCH (RBC) [Entitic mass] 29.5 pg 27.0-32.0 [facility] Mean corpuscular hemoglobin concentration (MCHC) determinationOrdered By: Alyce Morel on 06-02-2024 MCHC (RBC) [Mass/Vol] 32.6 g/dL 32-36 [facility] Mean platelet volume determi nationOrdered By: Alyce Morel on 06-02-2024 Platelet mean volume (Bld) [Entitic vol] 10.3 fL 6.2-12.0 [facility] Monocyte percentageOrdered B y: Alyce Morel on 06-02-2024 Monocytes/100 WBC (Bld) 6.7 % 0-10 [facility] Neutrophil percentageOrdered By: Alyce Morel on 06-02-2024 Neutrophils/100 WBC (Bld) 66.9 % 47-70 [facility] No Panel InformationOrdered By: Wilbert Umanzor on 06-02-2024 Procalcitonin 0.20 ng/mL High <0.11 [facility] Comment on above: Interpretation:<0.10 -0.25 ng/mL: [...] Troponin T High Sensitivity 9 ng/L <14 [facility] Nucleated red blood cell per centageOrdered By: Alyce Morel on 06-02-2024 Nucleated RBC/100 WBC (Bld) [Ratio] 0 % 0-5 [facility] Platelet countOrdered By: Luanne Morel on 06-02-2024 Platelets (Bld) [#/Vol] 271 10*3/uL 150-450 [facility] Potassium (Unsp spec) [Mass/ Vol]Ordered By: Alyce Morel on 06-02-2024 Potassium [Moles/Vol] 3.6 mmol/L 3.3-5.1 [facility] RBC Auto (Bld) [#/Vol]Ordere d By: Alyce Morel on 06-02-2024 RBC (Bld) [#/Vol] 4.74 10*6/uL 4.2-5.4 [facility] RESPIRATORY PANEL MOLECULARo n 06-02-2024 RP PANEL ADENOVIRUS Not Detected INFLUENZA A Not Detected INFLUENZA A (SUBTYPE H1) Not Detected INFLUENZA A (SUBTYPE H3) Not Detected INFLUENZA B Not Detected HUMAN METAPHNEUMO Not Detected PARAINFLUENZA 1 Not Detected PARAINFLUENZA 2 Not Detected PARAINFLUENZA 3 Not Detected PARAINFLUENZA 4 Not Detected RHINOVIRUS Not Detected RSV A Not Detected RSV B Not Detected Normal [facility] Comment on above: Performed By: #### M 814.758 #### [facility] [place], [address] Respiratory pathogens DNA an d RNA panel STEPHANIE+probe (Resp)Ordered By: Wilbert Umanzor on 06-02-2024 Respiratory Panel (PCR) [facility] Respiratory pathogens detect ion panel by molecular detection methodOrdered By: Wilbert Umanzor on 06-02-2024 Respiratory pathogens DNA and RNA panel STEPHANIE+probe (Resp) [facility] Serum creatinine measurement (mass/volume)Ordered By: Alyce Morel on 06-02-2024 Creatinine [Mass/Vol] 0.69 mg/dL Low 0.70-1.20 [facility] Serum glucose measurement (m ass/volume)Ordered By: Alyce Morel on 06-02-2024 Glucose [Mass/Vol] 175 mg/dL High 70-99 [facility] Serum or plasma calcium betzaida urement (mass/volume)Ordered By: Alyce Morel on 06-02-2024 Calcium [Mass/Vol] 8.8 mg/dL 7.6-11.0 [facility] Serum or plasma urea nitroge n measurement (mass/volume)Ordered By: Alyce Morel on 06-02-2024 Urea nitrogen [Mass/Vol] 14 mg/dL 4-19 [facility] Sodium levelOrdered By: Lino Morel on 06-02-2024 Sodium [Moles/Vol] 141 mmol/L 133-145 [facility] Troponin T.cardiac High sens itivity method [Mass/Vol]Ordered By: Alyce Morel on 06-02-2024 Troponin T High Sensitivity 2 Hour 23 ng/L High <14 [facility] Troponin T.cardiac [Mass/vol ume] in Serum or Plasma by High sensitivity methodOrdered By: Alyce Morel on 06-02-2024 Troponin T.cardiac High sensitivity method [Mass/Vol] 23 ng/L High <14 [facility] White blood cell (WBC) count Ordered By: Alyce Morel on 06-02-2024 WBC (Bld) [#/Vol] 8.2 10*3/uL 4.4-11.0 [facility] 29on 05-31-2024 29 Addended by: MIGUEL AMEZCUA on: 08/05/2024 10:49 AM Modules accepted: Orders Normal [facility] Progress Noteon 05-31-2024 Progress Note Continue CPAP Normal [facility] Progress Note TTE 04/2024 with 2+ M R. No current heart failure symptoms and appears euvolemic. -Continue Lasix 40 mg p.o. daily -Recheck echo 2 years Normal [facility] Progress Note 1+ AR per echocardio gram April 2024. Recommend good heart rate and blood pressure control. -Recheck echo 2 years -Continue metoprolol Normal [facility] Progress Note HFpEF, Stage C, Clas s II, EF 60% per TTE 04/2024. No current heart failure symptoms and euvolemic on physical exam. -Continue metoprolol 100 mg po BID -Continue Lasix 40 mg p.o. daily Heart failure self-care reviewed Normal [facility] Progress Note Normal [facility] Progress Note Permanent, nonvalvul ar. [id number] equals 4. Remains rate controlled today. Digoxin discontinued April 2024 due to dig toxicity. -Increase metoprolol 100 mg p.o. twice daily -Continue Eliquis 5 mg p.o. twice daily Normal [facility] Urgent Care Visit Reporton 0 05-25-2024 Urgent Care Visit Report [facility] [address], [address] [place] [address] OFFICE VISIT Date of Service: 05/25/24 MR#: [id number] Acct: [id number] Name: ALTA BAKER Rep #: [id number] : 1950 Provider: LOVELY Joshi Age/Sex: 74/F Location: [facility] Status: Signed Intake Vital [...] has been going on for 2 days. [facility] Medical History (Updated 05/26/24 @ 06:16 [...] (6 syste (more content not included)... Normal [facility] Progress Noteon 05-16-2024 Progress Note Normal [facility] Progress Noteon 05-11-2024 Progress Note Normal [facility] 36on 05-09-2024 36 Called and spoke wit h daughter, Cysto schedule for 06/27 at 2:20pm in [place] office with Dr. Jimenez. Daughter states Pt able to walk and transfer herself. Uses walker. Normal [facility] 36 Needs cysto in office Normal [facility] 36 Pt canceled the cyst o appt for 04/18. Has not been seen for office visit with us. Should I reschedule her for cysto or should I schedule her an office visit for microhematuria and adrenal lesions? Normal [facility] [id number] 05-08-2024 [id number] [facility] 36on 05-08-2024 36 Currently admitted. Normal [facility] BASIC METABOLIC PANELon 04-16 Anion gap [Moles/Vol] 5 mmol/L Normal 3-13 [facility] Comment on above: Performed By: #### L AB113, LAB15, [id number] ####Maint Mechanic: VIVIAN PANTOJA ([phone])[facility])[address] [place] [address] Calcium [Mass/Vol] 9.2 mg/dL Normal 8.8-10.0 [facility] Comment on above: Performed By: #### L AB113, LAB15, [id number] ####Maint Mechanic: VIVIAN PANTOJA ([phone])[facility] ([facility])[address] [place] [address] Chloride [Moles/Vol] 106 mmol/L Normal 98-107 [facility] Comment on above: Performed By: #### L AB113, LAB15, [id number] ####Maint Mechanic: VIVIAN PANTOJA ([phone])[facility])[address] [place] [address] [place] CO2 [Moles/Vol] 32 mmol/L High 23-31 [facility] Comment on above: Performed By: #### L AB113, LAB15, [id number] ####Maint Mechanic: VIVIAN PANTOJA ([phone])[facility])[address] [place] [address] Creatinine [Mass/Vol] 0.62 mg/dL Normal 0.57-1.11 [facility] Comment on above: Performed By: #### L AB113, LAB15, [id number] ####Maint Mechanic: VIVIAN PANTOJA ([phone])[facility])[address] [place] [address] GLOMERULAR FILTRATION RATE ML/MIN/1.73 SQ M.PREDICTED >90.0 Normal >60.0 [facility] Comment on above: Result Comment: Calc ulation based on the Chronic Kidney Disease Epidemiology Collaboration (CKD-EPI) equation refit without adjustment for race Performed By: #### L AB113, LAB15, [id number] ####Maint Mechanic: VIVIAN PANTOJA ([phone])[facility])[address] [place] [address] Glucose [Mass/Vol] 94 mg/dL Normal 82-115 [facility] Comment on above: Performed By: #### L AB113, LAB15, [id number] ####Maint Mechanic: VIVIAN PANTOJA ([phone])[facility])[address] [place] [address] Potassium [Moles/Vol] 4.2 mmol/L Normal 3.5-5.1 [facility] Comment on above: Result Comment: [facility] potassium values may be up to 0.5 mmol/L lower than serum values. Performed By: #### L AB113, LAB15, [id number] ####Maint Mechanic: VIVIAN PANTOJA ([phone])[facility])[address] [place] [address] [place] Sodium [Moles/Vol] 143 mmol/L Normal 136-145 [facility] Comment on above: Performed By: #### L AB113, LAB15, [id number] ####Maint Mechanic: VIVIAN PANTOJA ([phone])[facility])[address] [place] [address] [place] Urea nitrogen [Mass/Vol] 16 mg/dL Normal 9-23 [facility] Comment on above: Performed By: #### L AB113, LAB15, [id number] ####Maint Mechanic: VIVIAN PANTOAJ ([phone])[facility])[address] [place] [address] Basic metabolic 1998 panelon 05-08-2024 Anion gap [Moles/Vol] 5 mmol/L 3 - 13 mmol/L [facility] Calcium [Mass/Vol] 9.2 mg/dL 8.8 - 10. 0 mg/dL [facility] Chloride [Moles/Vol] 106 mmol/L 98 - 10 7 mmol/L [facility] CO2 [Moles/Vol] 32 mmol/L High 23 - 31 mmol/L [facility] Creatinine [Mass/Vol] 0.62 mg/dL 0.57 - 1.11 mg/dL [facility] GFR/1.73 sq M.predicted (S/P/Bld) [Vol rate/Area] - PINF [facility] Glucose [Mass/Vol] 94 mg/dL 82 - 115 mg/dL [facility] Potassium [Moles/Vol] 4.2 mmol/L 3.5 - 5.1 mmol/L [facility] Sodium [Moles/Vol] 143 mmol/L 136 - 145 mmol/L [facility] Urea nitrogen [Mass/Vol] 16 mg/dL 9 - 23 mg/dL [facility] CBC (HEMOGRAM)on 05-08-2024 Erythrocyte distribution width (RBC) [Ratio] 14.9 % Normal 11.5-15.0 [facility] Comment on above: Performed By: #### L [id number] ####Maint Mechanic: VIVIAN PANTOJA ([phone])[facility] ([facility])[address] [place] [address] [place] Hematocrit (Bld) [Volume fraction] 25.2 % Low 35.0-47.0 [facility] Comment on above: Performed By: #### L [id number] ####Maint Mechanic: VIVIAN PANTOJA ([phone])[facility] ([facility])[address] [place] [address] Hemoglobin (Bld) [Mass/Vol] 7.7 g/dL Low 11.7-16.0 [facility] Comment on above: Performed By: #### L [id number] ####Maint Mechanic: VIVIAN PANTOJA ([phone])[facility])[address] [place] [address] IPF 14 Normal [facility] Comment on above: Performed By: #### L [id number] ####Maint Mechanic: VIVIAN PANTOJA ([phone])[facility] ([facility])[address] [place] [address] MCH (RBC) [Entitic mass] 27.8 pg Normal 26.0-34.0 [facility] Comment on above: Performed By: #### L [id number] ####Maint Mechanic: VIVIAN PANTOJA ([phone])[facility])[address] [place] [address] MCHC 30.6 % Normal 30.5-36.0 [facility] Comment on above: Performed By: #### L [id number] ####Maint Mechanic: VIVIAN PANTOJA ([phone])[facility] ([facility])[address] [place] [address] MCV (RBC) [Entitic vol] 91.0 fL Normal 77.0-99.0 [facility] Comment on above: Performed By: #### L [id number] ####Maint Mechanic: VIVIAN PANTOJA ([phone])[facility] ([facility])[address] [place] [address] Platelet mean volume (Bld) [Entitic vol] 14.2 fL High 9.0-12.7 [facility] Comment on above: Performed By: #### L [id number] ####Maint Mechanic: VIVIAN PANTOJA ([phone])[facility] ([facility])[address] [place] [address] Platelets (Bld) [#/Vol] 66 10*3/uL Low 140-440 [facility] Comment on above: Performed By: #### L [id number] ####Maint Mechanic: VIVIAN PANTOJA ([phone])[facility])[address] [place] [address] RBC (Bld) [#/Vol] 2.77 10*6/uL Low 3.80-5.20 [facility] Comment on above: Performed By: #### L [id number] ####Maint Mechanic: VIVIAN PANTOJA ([phone])[facility] ([facility])[address] [place] [address] WBC (Bld) [#/Vol] 14.1 10*3/uL High 3.6-10.7 [facility] Comment on above: Performed By: #### L [id number] ####Maint Mechanic: VIVIAN PANTOJA ([phone])[facility])[address] [place] [address] CBC panel Auto (Bld)on 05-08 Erythrocyte distribution width (RBC) [Ratio] 14.9 % 11.5 - 15.0 % [facility] Hematocrit (Bld) [Volume fraction] 25.2 % Low 35.0 - 47.0 % [facility] Hemoglobin (Bld) [Mass/Vol] 7.7 g/dL Low 11.7 - 16.0 g/dL [facility] Interpretation and review of laboratory results Abnormal [facility] IPF 14 [facility] MCH (RBC) [Entitic mass] 27.8 pg 26.0 - 34.0 pg [facility] MCHC (RBC) [Mass/Vol] 30.6 % 30.5 - 36.0 % [facility] MCV (RBC) [Entitic vol] 91 fL 77.0 - 99.0 fL [facility] Platelet mean volume (Bld) [Entitic vol] 14.2 fL High 9.0 - 12.7 fL [facility] Platelets (Bld) [#/Vol] 66 10*3/uL Low 140 - 440 10*3/uL [facility] RBC (Bld) [#/Vol] 2.77 10*6/uL Low 3.80 - 5.2 0 10*6/uL [facility] WBC (Bld) [#/Vol] 14.1 10*3/uL High 3.6 - 10.7 10*3/uL [facility] - Chemistry and C hemistry - challengeon 05-08-2024 Magnesium [Mass/Vol] 1.6 mg/dL 1.6 - 2 .6 mg/dL [facility] MAGNESIUMon 05-08-2024 Magnesium [Mass/Vol] 1.6 mg/dL Normal 1.6-2.6 [facility] Comment on above: Result Comment: ORDE R COMMENTS:Higher values can be expected in females during menses. Performed By: #### L AB113, LAB15, [id number] ####Maint Mechanic: VIVIAN PANTOJA ([phone])[facility] ([facility])[address] [place] [address] [place] Magnesium [Mass/Vol]on 05-08 Interpretation and review of laboratory results Normal [facility] No Panel Informationon 05-08 Interpretation and review of laboratory results Abnormal [facility] Nursing Noteon 05-08-2024 Nursing Note Medications went ove r with daughter Rhiannon. Daughter verbally expressed understanding of new meds. Patient left in her clothes and all belongings sent with patient Normal [facility] PHOSPHORUSon 05-08-2024 Phosphate [Mass/Vol] 1.8 mg/dL Low 2.3-4.7 [facility] Comment on above: Performed By: #### L AB113, LAB15, [id number] ####Maint Mechanic: VIVIAN PANTOJA ([phone])[facility] ([facility])[address] [place] [address] [place] Phosphate [Moles/Vol]on 04-16 Phosphate [Mass/Vol] 1.8 mg/dL Low 2.3 - 4 .7 mg/dL [facility] Progress Noteon 05-08-2024 Progress Note Normal [facility] Progress Note Normal [facility] Progress Note Normal [facility] Progress Note Normal [facility] Progress Note Normal [facility] US Heart TransthoracicOrdere d By: Iker Crandall on 05-08-2024 Ao Root Index 1.57 cm/m2 [facility] Work Phone: Aortic Root 3 cm [facility] Work Phone: Aortic valve Mean systole pressure gradient by US.doppler derived full Bernoulli 9 mmHg [facility] [employer] Work Phone: Aortic valve Orifice area by US 3.1 cm2 [facility] [employer] Work Phone: Aortic valve Peak systolic flow by US.doppler 1.4 m/s [facility] [employer] Work Phone: AR Max Velocity PISA 4.2 m/s [facility] [employer] Work Phone: AR PHT 324.5 ms [facility] [employer] Work Phone: Ascending Aorta 2.9 cm [facility] [employer] Work Phone: Ascending Aorta Index 1.52 cm/m2 [facility] [employer] Work Phone: AV Area by Peak Velocity 1.9 cm2 [facility] [employer] Work Phone: AV Area by VTI 2.1 cm2 [facility] [employer] Work Phone: AV Peak Gradient 14 mmHg [facility] [employer] Work Phone: AV Peak Velocity 1.9 m/s [facility] [employer] Work Phone: AV Velocity Ratio 0.63 [facility] [employer] Work Phone: AV VTI 34.5 cm [facility] [employer] Work Phone: KAROLINA/BSA Peak Velocity 1 cm2/m2 [facility] [employer] Work Phone: KAROLINA/BSA VTI 1.1 cm2/m2 [facility] [employer] Work Phone: E/E' Lateral 17.67 [facility] [employer] Work Phone: E/E' Ratio (Averaged) 18.77 [facility] [employer] Work Phone: E/E' Septal 19.88 [facility] [employer] Work Phone: Est. RA Pressure 9 mmHg [facility] [employer] Work Phone: Fractional Shortening 2D 25 % 28 - 44 % [facility] [employer] Work Phone: Interpretation and review of laboratory results Abnormal [facility] [employer] Work Phone: IVC Diameter 2.4 cm [facility] [employer] Work Phone: IVSd 0.9 cm 0.6 - 0.9 cm [facility] [employer] Work Phone: LA Diameter 6.6 cm [facility] [employer] Work Phone: LA Size Index 3.46 cm/m2 [facility] [employer] Work Phone: LA Volume 2C 94 mL Abnormal 22 - 52 mL [facility] [employer] Work Phone: LA Volume 4C 100 mL Abnormal 22 - 52 mL [facility] [employer] Work Phone: LA Volume A/L 103 mL [facility] [employer] Work Phone: LA Volume BP 100 mL Abnormal 22 - 52 mL [facility] [employer] Work Phone: LA Volume Index 2C 49 mL/m2 Abnormal 16 - 34 mL/m2 [facility] [employer] Work Phone: LA Volume Index 4C 52 mL/m2 Abnormal 16 - 34 mL/m2 [facility] [employer] Work Phone: LA Volume Index A/L 54 mL/m2 16 - 34 mL/m2 [facility] [employer] Work Phone: LA Volume Index BP 52 ml/m2 Abnormal 16 - 34 ml/m2 [facility] [employer] Work Phone: LA/AO Root Ratio 2.2 [facility] [employer] Work Phone: Left ventricular Ejection fraction by US.2D+Calculated by biplane method of disks 62 % 55 - 100 % [facility] [employer] Work Phone: LV E' Lateral Velocity 9 cm/s Self [facility] Work Phone: LV E' Septal Velocity 8 cm/s [facility] Work Phone: LV EDV A2C 75 mL [facility] Work Phone: LV EDV A4C 88 mL [facility] Work Phone: LV EDV BP 89 mL 56 - 104 mL [facility] Work Phone: LV EDV Index A2C 39 mL/m2 [facility] Work Phone: LV EDV Index A4C 46 mL/m2 [facility] [employer] Work Phone: LV EDV Index BP 47 mL/m2 [facility] [employer] Work Phone: LV Ejection Fraction A2C 61 % [facility] Work Phone: LV Ejection Fraction A4C 59 % [facility] Work Phone: LV ESV A2C 29 mL [facility] [employer] Work Phone: LV ESV A4C 36 mL [facility] [employer] Work Phone: LV ESV BP 34 mL 19 - 49 mL [facility] [employer] Work Phone: LV ESV Index A2C 15 mL/m2 [facility] [employer] Work Phone: LV ESV Index A4C 19 mL/m2 [facility] [employer] Work Phone: LV ESV Index BP 18 mL/m2 [facility] [employer] Work Phone: LV Mass 2D 215.7 g Abnormal 67 - 162 g [facility] [employer] Work Phone: LV Mass 2D Index 112.9 g/m2 Abnormal 43 - 95 g/m2 [facility] [employer] Work Phone: LV RWT Ratio 0.3 [facility] [employer] Work Phone: LVIDd 6 cm Abnormal 3.9 - 5.3 cm [facility] [employer] Work Phone: LVIDd Index 3.14 cm/m2 [facility] [employer] Work Phone: LVIDs 4.5 cm [facility] [employer] Work Phone: LVIDs Index 2.36 cm/m2 [facility] [employer] Work Phone: LVOT Cardiac Output 8.9 liter/minute [facility] Work Phone: LVOT Diameter 2 cm [employer] Work Phone: LVOT Mean Gradient 3 mmHg [employer] Work Phone: LVOT Peak Gradient 5 mmHg [employer] Work Phone: LVOT Peak Velocity 1.2 m/s [employer] Work Phone: LVOT Stroke Volume Index 38.8 mL/m2 [employer] Work Phone: LVOT SV 74.1 ml [employer] Work Phone: LVOT VTI 23.6 cm [employer] Work Phone: LVOT:AV VTI Index 0.68 [employer] Phone: LVPWd 0.9 cm 0.6 - 0.9 cm [employer] Work Phone: MV Area by PHT 3.4 cm2 [employer] Work Phone: MV Area by VTI 2.2 cm2 [employer] Work Phone: MV E Velocity 1.59 m/s [employer] Work Phone: MV E Wave Deceleration Time 136.3 ms [employer] Phone: [phone] MV Max Velocity 1.9 m/s [employer] Work Phone: MV Mean Gradient 4 mmHg [facility] Work Phone: MV Mean Velocity 0.9 m/s [employer] Work Phone: MV Peak Gradient 15 mmHg [facility] Work Phone: MV PHT 64.5 ms [facility] Work Phone: MV VTI 33 cm [employer] Work Phone: MV:LVOT VTI Index 1.4 [facility] Phone: RA Area 4C 74.6 mL [facility] Work Phone: RA Area 4C 72.1 mL [facility] [employer] Work Phone: RV Basal Dimension 3.9 cm [facility] [employer] Work Phone: RV Free Wall Peak S' 10 cm/s [facility] [employer] Work Phone: RV Mid Dimension 3.4 cm [facility] [employer] Work Phone: RVSP 70 mmHg [facility] [employer] Work Phone: TAPSE 1.6 cm Abnormal 1.7 cm [facility] [employer] Work Phone: TR Max Velocity 3.89 m/s [facility] [employer] Work Phone: TR Peak Gradient 60 mmHg [facility] [employer] Work Phone: [facility] [employer] Work Phone: US Heart Transthoracicon CV CPACS 30on 05-07-2024 30 Normal [facility] 30 Normal [facility] BASIC METABOLIC PANELon - Anion gap [Moles/Vol] 4 mmol/L Normal 3-13 [facility] Comment on above: Performed By: #### L AB113, [id number], LAB15 ####Maint Mechanic: VIVIAN PANTOJA ([phone])[address] Calcium [Mass/Vol] 9.2 mg/dL Normal 8.8-10.0 [facility] Comment on above: Performed By: #### L AB113, [id number], LAB15 ####Maint Mechanic: VIVIAN PANTOJA ([phone])[facility] ([facility])[address] [place] [address] [place] Chloride [Moles/Vol] 108 mmol/L High 98-107 [facility] Comment on above: Performed By: #### L AB113, [id number], LAB15 ####Maint Mechanic: VIVIAN PANTOJA ([phone])[facility])[address] [place] [address] CO2 [Moles/Vol] 30 mmol/L Normal 23-31 [facility] Comment on above: Performed By: #### L AB113, [id number], LAB15 ####Maint Mechanic: VIVIAN PANTOJA ([phone])[facility])[address] [place] [address] Creatinine [Mass/Vol] 0.65 mg/dL Normal 0.57-1.11 [facility] Comment on above: Performed By: #### L AB113, [id number], LAB15 ####Maint Mechanic: VIVIAN PANTOJA ([phone])[facility])[address] [place] [address] GLOMERULAR FILTRATION RATE ML/MIN/1.73 SQ M.PREDICTED >90.0 Normal >60.0 [facility] Comment on above: Result Comment: Calc ulation based on the Chronic Kidney Disease Epidemiology Collaboration (CKD-EPI) equation refit without adjustment for race Performed By: #### Manpreet AB113, [id number], LAB15 ####Maint Mechanic: VIVIAN PANTOJA ([phone])[facility])[address] [place] [address] Glucose [Mass/Vol] 113 mg/dL Normal 82-115 [facility] Comment on above: Performed By: #### L AB113, [id number], LAB15 ####Maint Mechanic: VIVIAN PANTOJA ([phone])[facility])[address] [place] [address] Potassium [Moles/Vol] 5.1 mmol/L Normal 3.5-5.1 [facility] Comment on above: Result Comment: [facility] potassium values may be up to 0.5 mmol/L lower than serum values. Performed By: #### L AB113, [id number], LAB15 ####Maint Mechanic: VIVIAN PANTOJA ([phone])[facility])[address] [place] [address] Sodium [Moles/Vol] 142 mmol/L Normal 136-145 [facility] Comment on above: Performed By: #### L AB113, [id number], LAB15 ####Maint Mechanic: VIVIAN PANTOJA ([phone])[facility] ([facility])[address] [place] [address] Urea nitrogen [Mass/Vol] 19 mg/dL Normal - [facility] Comment on above: Performed By: #### L AB113, [id number], LAB15 ####Maint Mechanic: VIVIAN PANTOJA ([phone])[facility] ([facility])[address] [place] [address] Bacteria identified Aer cx N om (Lower resp)Ordered By: Liv Brady on 05-07-2024 Gram Stain Result Few Epithelial cells per low power field [facility] Gram Stain Result Many Polymorphonucle ar leukocytes per low power field [facility] Gram Stain Result No organisms seen [facility] Interpretation and review of laboratory results Abnormal [facility] PBP2A Negative [facility] Basic metabolic 1998 panelon 05-07-2024 Anion gap [Moles/Vol] 4 mmol/L 3 - 13 mmol/L [facility] Calcium [Mass/Vol] 9.2 mg/dL 8.8 - 10. 0 mg/dL [facility] Chloride [Moles/Vol] 108 mmol/L High 98 - 10 7 mmol/L [facility] CO2 [Moles/Vol] 30 mmol/L 23 - 31 mmol/L [facility] Creatinine [Mass/Vol] 0.65 mg/dL 0.57 - 1.11 mg/dL [facility] GFR/1.73 sq M.predicted (S/P/Bld) [Vol rate/Area] - PINF [facility] Glucose [Mass/Vol] 113 mg/dL 82 - 115 mg/dL [facility] Interpretation and review of laboratory results Abnormal [facility] Potassium [Moles/Vol] 5.1 mmol/L 3.5 - 5.1 mmol/L [facility] Sodium [Moles/Vol] 142 mmol/L 136 - 145 mmol/L [facility] Urea nitrogen [Mass/Vol] 19 mg/dL 9 - 23 mg/dL [facility] CBC (HEMOGRAM)on 05-07-2024 HEMATOCRIT Normal 35.0-47.0 [facility] Comment on above: Result Comment: Disr egard previously reported results.Corrected result: Previously reported as 29.0 % (reference range: 35.0-47.0 %) on 05/07/2024 at 0521 EST. Performed By: #### L [id number] ####Maint Mechanic: VIVIAN PANTOJA ([phone])[facility])[address] [place] [address] HEMOGLOBIN Normal 11.7-16.0 [facility] Comment on above: Result Comment: Disr egard previously reported results.Corrected result: Previously reported as 8.4 g/dL (reference range: 11.7-16.0 g/dL) on 05/07/2024 at 0521 EST. Performed By: #### L [id number] ####Maint Mechanic: VIVIAN PANTOJA ([phone])[facility])[address] [place] [address] IPF Normal [facility] Comment on above: Result Comment: Jenny ected result: Previously reported as 15 (reference range: ) on 05/07/2024 at 0521 EST. Performed By: #### L [id number] ####Maint Mechanic: VIVIAN PANTOJA ([phone])[address] MCH Normal 26.0-34.0 [facility] Comment on above: Result Comment: Disr egard previously reported results.Corrected result: Previously reported as 28.1 pg (reference range: 26.0-34.0 pg) on 05/07/2024 at 0521 EST. Performed By: #### L [id number] ####Maint Mechanic: VIVIAN PANTOJA ([phone])[address] MCHC Normal 30.5-36.0 [facility] Comment on above: Result Comment: Disr egard previously reported results.Corrected result: Previously reported as 29.0 % (reference range: 30.5-36.0 %) on 05/07/2024 at 0521 EST. Performed By: #### L [id number] ####Maint Mechanic: VIVIAN PANTOJA ([phone])[facility])[address] [place] [address] MCV Normal 77.0-99.0 [facility] Comment on above: Result Comment: Disr egard previously reported results.Corrected result: Previously reported as 97.0 fL (reference range: 77.0-99.0 fL) on 05/07/2024 at 0521 EST. Performed By: #### L [id number] ####Maint Mechanic: VIVIAN PANTOJA ([phone])[address] MPV Normal 9.0-12.7 [facility] Comment on above: Result Comment: Jenny ected result: Previously reported as 14.1 fL (reference range: 9.0-12.7 fL) on 05/07/2024 at 0521 EST. Performed By: #### L [id number] ####Maint Mechanic: VIVIAN PANTOJA ([phone])[address] PLATELET COUNT Normal 140-440 [facility] Comment on above: Result Comment: Disr egard previously reported results.Corrected result: Previously reported as 67 10*3/uL (reference range: 140-440 10*3/uL) on 05/07/2024 at 0521 EST. Performed By: #### L [id number] ####Maint Mechanic: VIVIAN PANTOJA ([phone])[address] RBC Normal 3.80-5.20 [facility] Comment on above: Result Comment: Disr egard previously reported results.Corrected result: Previously reported as 2.99 10*6/uL (reference range: 3.80-5.20 10*6/uL) on 05/07/2024 at 0521 EST. Performed By: #### L [id number] ####Maint Mechanic: VIVIAN PANTOJA ([phone])[address] RDW Normal 11.5-15.0 [facility] Comment on above: Result Comment: Disr egard previously reported results.Corrected result: Previously reported as 14.7 % (reference range: 11.5-15.0 %) on 05/07/2024 at 0521 EST. Performed By: #### L [id number] ####Maint Mechanic: VIVIAN PANTOJA ([phone])[facility] ([facility])[address] [place] [address] WBC Normal [facility] Comment on above: Result Comment: Disr marissa previously reported results. Performed By: #### L [id number] ####Maint Mechanic: VIVIAN PANTOJA ([phone])[facility] ([facility])[address] [place] [address] CBC W Auto Differential pane l (Bld)on 05-07-2024 Basophils (Bld) [#/Vol] 0 10*3/uL 0.0 - 0.2 10*3/uL [facility] Basophils/100 WBC (Bld) 0.3 % 0.0 - 2.0 % [facility] Eosinophils (Bld) [#/Vol] 0 10*3/uL 0.0 - 0.5 10*3/uL [facility] Eosinophils/100 WBC (Bld) 0 % 0.0 - 6.0 % [facility] Erythrocyte distribution width (RBC) [Ratio] 15.1 % High 11.5 - 15.0 % [facility] Hematocrit (Bld) [Volume fraction] 28.9 % Low 35.0 - 47.0 % [facility] Hemoglobin (Bld) [Mass/Vol] 8.7 g/dL Low 11.7 - 16.0 g/dL [facility] Immature granulocytes (Bld) [#/Vol] 0.4 10*3/uL High NINF - 0.1 10*3/uL [facility] Immature granulocytes/100 WBC (Bld) 3.5 % High 0.0 - 2.0 % [facility] Interpretation and review of laboratory results Abnormal [facility] IPF 15 [facility] Lymphocytes (Bld) [#/Vol] 1.1 10*3/uL 1.0 - 4.3 10*3/uL [facility] Lymphocytes/100 WBC (Bld) 10 % Low 15.0 - 45.0 % [facility] MCH (RBC) [Entitic mass] 27.9 pg 26.0 - 34.0 pg [facility] MCHC (RBC) [Mass/Vol] 30.1 % Low 30.5 - 36.0 % [facility] MCV (RBC) [Entitic vol] 92.6 fL 77.0 - 99.0 fL [facility] Monocytes (Bld) [#/Vol] 2 10*3/uL High 0.0 - 0.9 10*3/uL [facility] Monocytes/100 WBC (Bld) 17.3 % High 5.0 - 13.0 % [facility] Neutrophils (Bld) [#/Vol] 7.8 10*3/uL High 1.8 - 7.5 10*3/uL [facility] Neutrophils/100 WBC (Bld) 68.9 % 38.0 - 82.0 % [facility] Nucleated RBC/100 WBC (Bld) [Ratio] 0 % [facility] Platelet mean volume (Bld) [Entitic vol] 14.2 fL High 9.0 - 12.7 fL [facility] Platelets (Bld) [#/Vol] 70 10*3/uL Low 140 - 440 10*3/uL [facility] RBC (Bld) [#/Vol] 3.12 10*6/uL Low 3.80 - 5.2 0 10*6/uL [facility] WBC (Bld) [#/Vol] 11.4 10*3/uL High 3.6 - 10.7 10*3/uL [facility] CBC WITH AUTO DIFFERENTIALon 05-07-2024 Basophils (Bld) [#/Vol] 0.0 10*3/uL Normal 0.0-0.2 [facility] Comment on above: Performed By: #### L [id number] ####Maint Mechanic: VIVIAN PANTOJA ([phone])[address] Basophils/100 WBC (Bld) 0.3 % Normal 0.0-2.0 [facility] Comment on above: Performed By: #### L [id number] ####Maint Mechanic: VIVIAN PANTOJA ([phone])[facility])[address] [place] [address] Eosinophils (Bld) [#/Vol] 0.0 10*3/uL Normal 0.0-0.5 [facility] Comment on above: Performed By: #### L [id number] ####Maint Mechanic: VIVIAN PANTOJA ([phone])[address] Eosinophils/100 WBC (Bld) 0.0 % Normal 0.0-6.0 [facility] Comment on above: Performed By: #### L [id number] ####Maint Mechanic: VIVIAN PANTOJA ([phone])[facility])[address] [place] [address] Erythrocyte distribution width (RBC) [Ratio] 15.1 % High 11.5-15.0 [facility] Comment on above: Performed By: #### L [id number] ####Maint Mechanic: VIVIAN PANTOJA ([phone])[address] Hematocrit (Bld) [Volume fraction] 28.9 % Low 35.0-47.0 [facility] Comment on above: Performed By: #### L [id number] ####Maint Mechanic: VIVIAN PANTOJA ([phone])[address] Hemoglobin (Bld) [Mass/Vol] 8.7 g/dL Low 11.7-16.0 [facility] Comment on above: Performed By: #### L [id number] ####Maint Mechanic: VIVIAN PANTOJA ([phone])[address] IMMATURE GRANS % 3.5 % High 0.0-2.0 [facility] Comment on above: Performed By: #### L [id number] ####Maint Mechanic: VIVIAN PANTOJA ([phone])[address] IMMATURE GRANS ABSOLUTE 0.4 10*3/uL High <0.1 [facility] Comment on above: Performed By: #### L [id number] ####Maint Mechanic: VIVIAN PANTOJA ([phone])[facility])[address] [place] [address] [place] IPF 15 Normal [facility] Comment on above: Performed By: #### L [id number] ####Maint Mechanic: VIVIAN PANTOJA ([phone])[facility])[address] [place] [address] Lymphocytes (Bld) [#/Vol] 1.1 10*3/uL Normal 1.0-4.3 [facility] Comment on above: Performed By: #### L [id number] ####Maint Mechanic: VIVIAN PANTOJA ([phone])[facility])[address] [place] [address] Lymphocytes/100 WBC (Bld) 10.0 % Low 15.0-45.0 [facility] Comment on above: Performed By: #### L [id number] ####Maint Mechanic: VIVIAN PANTOJA ([phone])[facility])[address] [place] [address] MCH (RBC) [Entitic mass] 27.9 pg Normal 26.0-34.0 [facility] Comment on above: Performed By: #### L [id number] ####Maint Mechanic: VIVIAN PANTOJA ([phone])[facility])[address] [place] [address] MCHC 30.1 % Low 30.5-36.0 [facility] Comment on above: Performed By: #### L [id number] ####Maint Mechanic: VIVIAN PANTOJA ([phone])[facility])[address] [place] [address] MCV (RBC) [Entitic vol] 92.6 fL Normal 77.0-99.0 [facility] Comment on above: Performed By: #### L [id number] ####Maint Mechanic: VIVIAN PANTOJA ([phone])[facility])[address] [place] [address] Monocytes (Bld) [#/Vol] 2.0 10*3/uL High 0.0-0.9 [facility] Comment on above: Performed By: #### L [id number] ####Maint Mechanic: VIVIAN PANTOJA ([phone])[facility] ([facility])[address] [place] [address] Monocytes/100 WBC (Bld) 17.3 % High 5.0-13.0 [facility] Comment on above: Performed By: #### L [id number] ####Maint Mechanic: VIVIAN PANTOJA ([phone])[facility] ([facility])[address] [place] [address] NEUTROPHILS ABSOLUTE 7.8 10*3/uL High 1.8-7.5 [facility] Comment on above: Performed By: #### L [id number] ####Maint Mechanic: VIVIAN PANTOJA ([phone])[facility] ([facility])[address] [place] [address] Neutrophils/100 WBC (Bld) 68.9 % Normal 38.0-82.0 [facility] Comment on above: Performed By: #### L [id number] ####Maint Mechanic: VIVIAN PANTOJA ([phone])[facility] ([facility])[address] [place] [address] NRBC 0.0 /100 WBCs Normal 0.0-2.0 [facility] Comment on above: Performed By: #### L [id number] ####Maint Mechanic: VIVIAN PANTOJA ([phone])[facility] ([facility])[address] [place] [address] Platelet mean volume (Bld) [Entitic vol] 14.2 fL High 9.0-12.7 [facility] Comment on above: Performed By: #### L [id number] ####Maint Mechanic: VIVIAN PANTOJA ([phone])[facility] ([facility])[address] [place] [address] [place] Platelets (Bld) [#/Vol] 70 10*3/uL Low 140-440 [facility] Comment on above: Performed By: #### L [id number] ####Maint Mechanic: VIVIAN PANTOJA ([phone])[facility] ([facility])[address] [place] [address] RBC (Bld) [#/Vol] 3.12 10*6/uL Low 3.80-5.20 [facility] Comment on above: Performed By: #### L [id number] ####Maint Mechanic: VIVIAN APNTOJA ([phone])[facility] ([facility])[address] [place] [address] WBC (Bld) [#/Vol] 11.4 10*3/uL High 3.6-10.7 [facility] Comment on above: Performed By: #### L [id number] ####Maint Mechanic: VIVIAN PANTOJA ([phone])[facility] ([facility])[address] [place] [address] CBC panel Auto (Bld)on 05-07 Erythrocyte distribution width (RBC) [Ratio] [facility] Hematocrit (Bld) [Volume fraction] [facility] Hemoglobin (Bld) [Mass/Vol] [facility] IPF [facility] MCH (RBC) [Entitic mass] [facility] MCHC (RBC) [Mass/Vol] [facility] MCV (RBC) [Entitic vol] [facility] Platelet mean volume (Bld) [Entitic vol] [facility] Platelets (Bld) [#/Vol] [facility] RBC (Bld) [#/Vol] [facility] WBC (Bld) [#/Vol] [facility] - Chemistry and C hemistry - challengeon 05-07-2024 Magnesium [Mass/Vol] 1.8 mg/dL 1.6 - 2 .6 mg/dL [facility] Laboratory - Microbiology an d Antimicrobial susceptibilityOrdered By: Liv Brady on 05-07-2024 Bacteria identified Aer cx Nom (Lower resp) Few respiratory mei present. [facility] Bacteria identified Aer cx Nom (Lower resp) Rare Staphylococcus aureus Abnormal [facility] MAGNESIUMon 05-07-2024 Magnesium [Mass/Vol] 1.8 mg/dL Normal 1.6-2.6 [facility] Comment on above: Result Comment: LEOBARDO R COMMENTS:Higher values can be expected in females during menses. Performed By: #### L [id number], [id number], LAB15 ####Maint Mechanic: VIVIAN PANTOJA ([phone])[facility])[address] [place] [address] [place] Magnesium [Mass/Vol]on 05-07 [facility] No Panel Informationon 05-07 [facility] Interpretation and review of laboratory results Normal [facility] PHOSPHORUSon 05-07-2024 Phosphate [Mass/Vol] 2.6 mg/dL Normal 2.3-4.7 [facility] Comment on above: Performed By: #### L AB113, [id number], LAB15 ####Maint Mechanic: VIVIAN PANTOJA ([phone])[facility])[address] [place] [address] [place] Phosphate [Moles/Vol]on 04-16 Phosphate [Mass/Vol] 2.6 mg/dL 2.3 - 4 .7 mg/dL [facility] Progress Noteon 05-07-2024 Progress Note Normal [facility] Progress Note Normal [facility] BASIC METABOLIC PANELon 04-16 Anion gap [Moles/Vol] 5 mmol/L Normal 3-13 [facility] Comment on above: Performed By: #### L AB15, [id number], [id number] ####Maint Mechanic: VIVIAN PANTOJA ([phone])[facility] ([facility])[address] [place] [address] [place] Calcium [Mass/Vol] 8.9 mg/dL Normal 8.8-10.0 [facility] Comment on above: Performed By: #### L AB15, [id number], [id number] ####Maint Mechanic: VIVIAN PANTJOA ([phone])[facility] ([facility])[address] [place] [address] [place] Chloride [Moles/Vol] 109 mmol/L High 98-107 [facility] Comment on above: Performed By: #### L AB15, [id number], [id number] ####Maint Mechanic: VIVIAN PANTOJA ([phone])[facility] CO2 [Moles/Vol] 30 mmol/L Normal 23-31 [facility] Comment on above: Performed By: #### L AB15, [id number], [id number] ####Maint Mechanic: VIVIAN PANTOJA ([phone])[facility])[address] [place] [address] Creatinine [Mass/Vol] 0.68 mg/dL Normal 0.57-1.11 [facility] Comment on above: Performed By: #### L AB15, [id number], [id number] ####Maint Mechanic: VIVIAN PANTOJA ([phone])[facility])[address] [place] [address] GLOMERULAR FILTRATION RATE ML/MIN/1.73 SQ M.PREDICTED >90.0 Normal >60.0 [facility] Comment on above: Result Comment: Calc ulation based on the Chronic Kidney Disease Epidemiology Collaboration (CKD-EPI) equation refit without adjustment for race Performed By: #### L AB15, [id number], [id number] ####Maint Mechanic: VIVIAN PANTOJA ([phone])[facility] ([facility])[address] [place] [address] Glucose [Mass/Vol] 123 mg/dL High 82-115 [facility] Comment on above: Performed By: #### L AB15, [id number], [id number] ####Maint Mechanic: VIVIAN PANTOJA ([phone])[facility])[address] [place] [address] Potassium [Moles/Vol] 4.4 mmol/L Normal 3.5-5.1 [facility] Comment on above: Result Comment: [facility] potassium values may be up to 0.5 mmol/L lower than serum values. Performed By: #### L AB15, [id number], [id number] ####Maint Mechanic: VIVIAN PANTOJA ([phone])[facility])[address] [place] [address] Sodium [Moles/Vol] 144 mmol/L Normal 136-145 [facility] Comment on above: Performed By: #### L AB15, [id number], [id number] ####Maint Mechanic: VIVIAN PANTOJA ([phone])[facility] ([facility])[address] [place] [address] Urea nitrogen [Mass/Vol] 21 mg/dL Normal 9-23 [facility] Comment on above: Performed By: #### L AB15, [id number], [id number] ####Maint Mechanic: VIVIAN PANTOJA ([phone])[facility] ([facility])[address] [place] [address] Basic metabolic 1998 panelon 05-06-2024 Anion gap [Moles/Vol] 5 mmol/L 3 - 13 mmol/L [facility] Calcium [Mass/Vol] 8.9 mg/dL 8.8 - 10. 0 mg/dL [facility] Chloride [Moles/Vol] 109 mmol/L High 98 - 10 7 mmol/L [facility] CO2 [Moles/Vol] 30 mmol/L 23 - 31 mmol/L [facility] Creatinine [Mass/Vol] 0.68 mg/dL 0.57 - 1.11 mg/dL [facility] GFR/1.73 sq M.predicted (S/P/Bld) [Vol rate/Area] - PINF [facility] Glucose [Mass/Vol] 123 mg/dL High 82 - 115 mg/dL [facility] Potassium [Moles/Vol] 4.4 mmol/L 3.5 - 5.1 mmol/L [facility] Sodium [Moles/Vol] 144 mmol/L 136 - 145 mmol/L [facility] Urea nitrogen [Mass/Vol] 21 mg/dL 9 - 23 mg/dL [facility] CBC (HEMOGRAM)on 05-06-2024 Erythrocyte distribution width (RBC) [Ratio] 14.8 % Normal 11.5-15.0 [facility] Comment on above: Performed By: #### L [id number] ####Maint Mechanic: VIVIAN PANTOJA ([phone])[facility] ([facility])[address] [place] [address] Hematocrit (Bld) [Volume fraction] 27.6 % Low 35.0-47.0 [facility] Comment on above: Performed By: #### L [id number] ####Maint Mechanic: VIVIAN PANTOJA ([phone])[facility] ([facility])[address] [place] [address] Hemoglobin (Bld) [Mass/Vol] 8.4 g/dL Low 11.7-16.0 [facility] Comment on above: Performed By: #### L [id number] ####Maint Mechanic: VIVIAN PANTOJA ([phone])[facility])[address] [place] [address] IPF 16 Normal [facility] Comment on above: Performed By: #### L [id number] ####Maint Mechanic: VIVIAN PANTOJA ([phone])[facility] ([facility])[address] [place] [address] MCH (RBC) [Entitic mass] 28.0 pg Normal 26.0-34.0 [facility] Comment on above: Performed By: #### L [id number] ####Maint Mechanic: VIVIAN PANTOJA ([phone])[facility])[address] [place] [address] MCHC 30.4 % Low 30.5-36.0 [facility] Comment on above: Performed By: #### L [id number] ####Maint Mechanic: VIVIAN PANTOJA ([phone])[facility])[address] [place] [address] MCV (RBC) [Entitic vol] 92.0 fL Normal 77.0-99.0 [facility] Comment on above: Performed By: #### L [id number] ####Maint Mechanic: VIVIAN PANTOJA ([phone])[facility] ([facility])[address] [place] [address] Platelet mean volume (Bld) [Entitic vol] 14.0 fL High 9.0-12.7 [facility] Comment on above: Performed By: #### L [id number] ####Maint Mechanic: VIVIAN PANTOJA ([id number])[facility])[address] [place] [address] Platelets (Bld) [#/Vol] 62 10*3/uL Low 140-440 [facility] Comment on above: Performed By: #### L [id number] ####Maint Mechanic: VIVIAN PANTOJA ([id number])[address] RBC (Bld) [#/Vol] 3.00 10*6/uL Low 3.80-5.20 [facility] Comment on above: Performed By: #### L [id number] ####Maint Mechanic: VIVIAN PANTOJA ([phone])[facility])[address] [place] [address] WBC (Bld) [#/Vol] 9.2 10*3/uL Normal 3.6-10.7 [facility] Comment on above: Performed By: #### L [id number] ####Maint Mechanic: VIVIAN PANTOJA ([id number])[address] CBC panel Auto (Bld)on 05-06 Erythrocyte distribution width (RBC) [Ratio] 14.8 % 11.5 - 15.0 % [facility] Hematocrit (Bld) [Volume fraction] 27.6 % Low 35.0 - 47.0 % [facility] Hemoglobin (Bld) [Mass/Vol] 8.4 g/dL Low 11.7 - 16.0 g/dL [facility] Interpretation and review of laboratory results Abnormal [facility] IPF 16 [facility] MCH (RBC) [Entitic mass] 28 pg 26.0 - 34.0 pg [facility] [facility] MCHC (RBC) [Mass/Vol] 30.4 % Low 30.5 - 36.0 % [facility] MCV (RBC) [Entitic vol] 92 fL 77.0 - 99.0 fL [facility] Platelet mean volume (Bld) [Entitic vol] 14 fL High 9.0 - 12.7 fL [facility] Platelets (Bld) [#/Vol] 62 10*3/uL Low 140 - 440 10*3/uL [facility] RBC (Bld) [#/Vol] 3 10*6/uL Low 3.80 - 5.2 0 10*6/uL [facility] WBC (Bld) [#/Vol] 9.2 10*3/uL 3.6 - 10.7 10*3/uL [facility] - Chemistry and C hemistry - challengeon 05-06-2024 Aldosterone [Mass/Vol] <1 ng/dL [facility] Magnesium [Mass/Vol] 2 mg/dL 1.6 - 2 .6 mg/dL [facility] MAGNESIUMon 05-06-2024 Magnesium [Mass/Vol] 2.0 mg/dL Normal 1.6-2.6 [facility] Comment on above: Result Comment: LEOBARDO Gill COMMENTS:Higher values can be expected in females during menses. Performed By: #### L AB15, [id number], [id number] ####Maint Mechanic: VIVIAN PANTOJA ([phone])[facility] ([facility])[address] [place] [address] Magnesium [Mass/Vol]on 05-06 Interpretation and review of laboratory results Normal [facility] No Panel Informationon 05-06 [facility] Interpretation and review of laboratory results Abnormal [facility] PHOSPHORUSon 05-06-2024 Phosphate [Mass/Vol] 2.1 mg/dL Low 2.3-4.7 [facility] Comment on above: Performed By: #### L AB15, [id number], [id number] ####Maint Mechanic: VIVIAN PANTOJA ([phone])[facility] ([facility])[address] [place] [address] [place] Phosphate [Moles/Vol]on 04-16 Phosphate [Mass/Vol] 2.1 mg/dL Low 2.3 - 4 .7 mg/dL [facility] Progress Noteon 05-06-2024 Progress Note Normal [facility] Progress Note Chart reviewed Creatinine stable We will follow peripherally over the weekend Please call with issues Normal [facility] Progress Note Normal [facility] 30on 05-05-2024 30 Normal [facility] 30 Normal [facility] [id number] 05-05-2024 [id number] Normal [facility] [id number] Normal [facility] 36on 05-05-2024 36 Still admitted. Normal [facility] BASIC METABOLIC PANELon 02-2 -2024 Anion gap [Moles/Vol] 5 mmol/L Normal 3-13 [facility] Comment on above: Performed By: #### L AB113, [id number], LAB15 ####Maint Mechanic: VIVIAN PANTOJA ([phone])[facility] ([facility])[address] [place] [address] Calcium [Mass/Vol] 8.6 mg/dL Low 8.8-10.0 [facility] Comment on above: Performed By: #### L AB113, [id number], LAB15 ####Maint Mechanic: VIVIAN PANTOJA ([phone])[facility] ([facility])[address] [place] [address] Chloride [Moles/Vol] 109 mmol/L High 98-107 [facility] Comment on above: Performed By: #### Manpreet ABToby, [id number], LAB15 ####Maint Mechanic: VIVIAN PANTOJA ([phone])[facility] ([facility])[address] [place] [address] CO2 [Moles/Vol] 28 mmol/L Normal 23-31 [facility] Comment on above: Performed By: #### Manpreet AB113, [id number], LAB15 ####Maint Mechanic: VIVIAN PANTOJA ([phone])[facility])[address] [place] [address] Creatinine [Mass/Vol] 0.77 mg/dL Normal 0.57-1.11 [facility] Comment on above: Performed By: #### L AB113, [id number], LAB15 ####Maint Mechanic: VIVIAN PANTOJA ([phone])[facility])[address] [place] [address] [place] GLOMERULAR FILTRATION RATE ML/MIN/1.73 SQ M.PREDICTED 81.6 mL/min/1.73m*2 Normal >60.0 [facility] Comment on above: Result Comment: Calc ulation based on the Chronic Kidney Disease Epidemiology Collaboration (CKD-EPI) equation refit without adjustment for race Performed By: #### L AB113, [id number], LAB15 ####Maint Mechanic: VIVIAN PANTOJA ([phone])[facility] ([facility])[address] [place] [address] Glucose [Mass/Vol] 114 mg/dL Normal 82-115 [facility] Comment on above: Performed By: #### L AB113, [id number], LAB15 ####Maint Mechanic: VIVIAN PANTOJA ([phone])[facility] ([facility])[address] [place] [address] Potassium [Moles/Vol] 5.0 mmol/L Normal 3.5-5.1 [facility] Comment on above: Result Comment: [facility] potassium values may be up to 0.5 mmol/L lower than serum values. Performed By: #### L AB113, YPN006, LAB15 ####Maint Mechanic: VIVIAN PANTOJA ([phone])[facility] ([facility])[address] [place] [address] Sodium [Moles/Vol] 142 mmol/L Normal 136-145 [facility] Comment on above: Performed By: #### L AB113, [id number], LAB15 ####Maint Mechanic: VIVIAN PANTOJA ([phone])[facility] ([facility])[address] [place] [address] Urea nitrogen [Mass/Vol] 26 mg/dL High 9-23 [facility] Comment on above: Performed By: #### L AB113, [id number], LAB15 ####Maint Mechanic: VIVIAN PANTOJA ([phone])[facility])[address] [place] [address] Basic metabolic 1998 panelon 05-05-2024 Anion gap [Moles/Vol] 5 mmol/L 3 - 13 mmol/L [facility] Calcium [Mass/Vol] 8.6 mg/dL Low 8.8 - 10. 0 mg/dL [facility] Chloride [Moles/Vol] 109 mmol/L High 98 - 10 7 mmol/L [facility] CO2 [Moles/Vol] 28 mmol/L 23 - 31 mmol/L [facility] Creatinine [Mass/Vol] 0.77 mg/dL 0.57 - 1.11 mg/dL [facility] GFR/1.73 sq M.predicted (S/P/Bld) [Vol rate/Area] 81.6 mL/min - PINF [facility] Glucose [Mass/Vol] 114 mg/dL 82 - 115 mg/dL [facility] Potassium [Moles/Vol] 5 mmol/L 3.5 - 5.1 mmol/L [facility] Sodium [Moles/Vol] 142 mmol/L 136 - 145 mmol/L [facility] Urea nitrogen [Mass/Vol] 26 mg/dL High 9 - 23 mg/dL [facility] CALCIUM, IONIZEDon CALCIUM IONIZED 4.50 mg/dL Normal 4.30-5.20 [facility] Comment on above: Performed By: #### L AB54 ####Maint Mechanic: VIVIAN PANTOJA ([phone])[facility])[address] [place] [address] PH, IONIZED CALCIUM 7.28 Low 7.31-7.46 [facility] Comment on above: Performed By: #### L AB54 ####Maint Mechanic: VIVIAN PANTOJA ([phone])[facility] ([facility])[address] [place] [address] CBC (HEMOGRAM)on 05-05-2024 Erythrocyte distribution width (RBC) [Ratio] 15.0 % Normal 11.5-15.0 [facility] Comment on above: Performed By: #### L AB294 ####Maint Mechanic: VIVIAN PANTOJA ([phone])[facility] ([facility])[address] [place] [address] Hematocrit (Bld) [Volume fraction] 28.0 % Low 35.0-47.0 [facility] Comment on above: Performed By: #### L AB294 ####Maint Mechanic: VIVIAN PANTOJA ([phone])[facility])[address] [place] [address] Hemoglobin (Bld) [Mass/Vol] 8.4 g/dL Low 11.7-16.0 [facility] Comment on above: Performed By: #### L AB294 ####Maint Mechanic: VIVIAN PANTOJA ([phone])[facility] ([facility])[address] [place] [address] IPF 16 Normal [facility] Comment on above: Performed By: #### L AB294 ####Maint Mechanic: VIVIAN PANTOJA ([phone])[facility] ([facility])[address] [place] [address] MCH (RBC) [Entitic mass] 27.8 pg Normal 26.0-34.0 [facility] Comment on above: Performed By: #### L AB294 ####Maint Mechanic: VIVIAN PANTOJA ([phone])[facility])[address] [place] [address] MCHC 30.0 % Low 30.5-36.0 [facility] Comment on above: Performed By: #### L AB294 ####Maint Mechanic: VIVIAN PANTOJA ([phone])[facility] ([facility])[address] [place] [address] MCV (RBC) [Entitic vol] 92.7 fL Normal 77.0-99.0 [facility] Comment on above: Performed By: #### L AB294 ####Maint Mechanic: VIVIAN PANTOJA ([phone])[facility] ([facility])[address] [place] [address] MPV Normal [facility] Comment on above: Result Comment: Unab le to calculate result. Performed By: #### L AB294 ####Maint Mechanic: VIVIAN PANTOJA ([phone])[facility] ([facility])[address] [place] [address] Platelets (Bld) [#/Vol] 57 10*3/uL Low 140-440 [facility] Comment on above: Performed By: #### L AB294 ####Maint Mechanic: VIVIAN PANTOJA ([phone])[facility])[address] [place] [address] RBC (Bld) [#/Vol] 3.02 10*6/uL Low 3.80-5.20 [facility] Comment on above: Performed By: #### L AB294 ####Maint Mechanic: VIVIAN APNTOJA ([phone])[facility] ([facility])[address] [place] [address] WBC (Bld) [#/Vol] 6.8 10*3/uL Normal 3.6-10.7 [facility] Comment on above: Performed By: #### L AB294 ####Maint Mechanic: VIVIAN PANTOJA ([phone])[facility] ([facility])[address] [place] [address] CBC panel Auto (Bld)on 05-05 Erythrocyte distribution width (RBC) [Ratio] 15 % 11.5 - 15.0 % [facility] Hematocrit (Bld) [Volume fraction] 28 % Low 35.0 - 47.0 % [facility] Hemoglobin (Bld) [Mass/Vol] 8.4 g/dL Low 11.7 - 16.0 g/dL [facility] Interpretation and review of laboratory results Abnormal [facility] IPF 16 [facility] MCH (RBC) [Entitic mass] 27.8 pg 26.0 - 34.0 pg [facility] MCHC (RBC) [Mass/Vol] 30 % Low 30.5 - 36.0 % [facility] MCV (RBC) [Entitic vol] 92.7 fL 77.0 - 99.0 fL [facility] Platelet mean volume (Bld) [Entitic vol] [facility] Platelets (Bld) [#/Vol] 57 10*3/uL Low 140 - 440 10*3/uL [facility] RBC (Bld) [#/Vol] 3.02 10*6/uL Low 3.80 - 5.2 0 10*6/uL [facility] WBC (Bld) [#/Vol] 6.8 10*3/uL 3.6 - 10.7 10*3/uL [facility] Calcium.ionized [Moles/Vol]O rdered By: Andrew Jacinto on 05-05-2024 Calcium.ionized (Bld) [Moles/Vol] 4.5 mg/dL 4.30 - 5.20 mg/dL [facility] Interpretation and review of laboratory results Abnormal [facility] PH, IONIZED CALCIUM 7.28 Low 7.31 - 7.46 [facility] HIV 1+2 Ab+HIV1 p24 Ag IA Ql Ordered By: Miles Greco on 05-05-2024 Interpretation and review of laboratory results Normal [facility] - Chemistry and C hemistry - challengeon 05-05-2024 Magnesium [Mass/Vol] 1.7 mg/dL 1.6 - 2 .6 mg/dL [facility] - Microbiology an d Antimicrobial susceptibilityOrdered By: Miles Greco on 05-05-2024 HIV 1+2 Ab+HIV1 p24 Ag IA Ql Non-Reactive Nonreactive [facility] MAGNESIUMon 05-05-2024 Magnesium [Mass/Vol] 1.7 mg/dL Normal 1.6-2.6 [facility] Comment on above: Result Comment: LEOBARDO Gill COMMENTS:Higher values can be expected in females during menses. Performed By: #### L AB113, [id number], LAB15 ####Maint Mechanic: VIVIAN PANTOJA ([phone])[facility] ([facility])[address] [place] [address] Magnesium [Mass/Vol]on 05-05 Interpretation and review of laboratory results Normal [facility] No Panel Informationon 05-05 Interpretation and review of laboratory results Abnormal [facility] PHOSPHORUSon 05-05-2024 Phosphate [Mass/Vol] 2.1 mg/dL Low 2.3-4.7 [facility] Comment on above: Performed By: #### L AB113, [id number], LAB15 ####Maint Mechanic: VIVIAN PANTOJA ([phone])[facility] ([facility])[address] [place] [address] Phosphate [Moles/Vol]on 04-16 Phosphate [Mass/Vol] 2.1 mg/dL Low 2.3 - 4 .7 mg/dL [facility] Progress Noteon 05-05-2024 Progress Note Normal [facility] Progress Note Normal [facility] Progress Note Normal [facility] Progress Note Normal [facility] Progress Note Normal [facility] Progress Note Normal [facility] Progress Note Normal [facility] 30on 05-04-2024 30 Pt hemodynamically stable-Transfer orders written to [facility]-Daughter here visiting and aware and also updated Normal [facility] 30 Normal [facility] [id number] 05-04-2024 [id number] Normal [facility] [id number] Normal [facility] BASIC METABOLIC PANELon 04-16 Anion gap [Moles/Vol] 7 mmol/L Normal 3-13 [facility] Comment on above: Performed By: #### L AB15, [id number], DMT242 ####Maint Mechanic: VIVIAN PANTOJA ([phone])[facility] ([facility])[address] [place] [address] Calcium [Mass/Vol] 8.4 mg/dL Low 8.8-10.0 [facility] Comment on above: Performed By: #### L AB15, PCR465, VTW209 ####Maint Mechanic: VIVIAN PANTOJA ([phone])[facility] ([facility])[address] [place] [address] [place] Chloride [Moles/Vol] 109 mmol/L High 98-107 [facility] Comment on above: Performed By: #### L AB15, NCP104, [id number] ####Maint Mechanic: VIVIAN PANTOJA ([phone])[facility] ([facility])[address] [place] [address] [place] CO2 [Moles/Vol] 27 mmol/L Normal 23-31 [facility] Comment on above: Performed By: #### L AB15, RRI780, GBI313 ####Maint Mechanic: VIVIAN PANTOJA ([phone])[facility] ([facility])[address] [place] [address] [place] Creatinine [Mass/Vol] 0.93 mg/dL Normal 0.57-1.11 [facility] Comment on above: Performed By: #### L AB15, FSH743, GGW760 ####Maint Mechanic: VIVIAN PANTOJA ([phone])[facility] ([facility])[address] [place] [address] [place] GLOMERULAR FILTRATION RATE ML/MIN/1.73 SQ M.PREDICTED 65.0 mL/min/1.73m*2 Normal >60.0 [facility] Comment on above: Result Comment: Calc ulation based on the Chronic Kidney Disease Epidemiology Collaboration (CKD-EPI) equation refit without adjustment for race Performed By: #### L AB15, NPU303, KRC960 ####Maint Mechanic: VIVIAN PANTOJA ([phone])[facility] ([facility])[address] [place] [address] Glucose [Mass/Vol] 95 mg/dL Normal 82-115 [facility] Comment on above: Performed By: #### L AB15, [id number], PGU825 ####Maint Mechanic: VIVIAN PANTOJA ([phone])[facility])[address] [place] [address] Potassium [Moles/Vol] 4.1 mmol/L Normal 3.5-5.1 [facility] Comment on above: Result Comment: [facility] potassium values may be up to 0.5 mmol/L lower than serum values. Performed By: #### L AB15, [id number], FHC919 ####Maint Mechanic: VIVIAN PANTOJA ([phone])[facility] ([facility])[address] [place] [address] Sodium [Moles/Vol] 143 mmol/L Normal 136-145 [facility] Comment on above: Performed By: #### L AB15, ZTB831, XOC539 ####Maint Mechanic: VIVIAN PANTOJA ([phone])[facility])[address] [place] [address] Urea nitrogen [Mass/Vol] 23 mg/dL Normal 9-23 [facility] Comment on above: Performed By: #### L AB15, GRC177, BUP401 ####Maint Mechanic: VIVIAN PANTOJA ([phone])[facility])[address] [place] [address] BLOOD GAS, VENOUSon 05-04-19 25 Base excess Calc (BldV) [Moles/Vol] 1.7 mmol/L Normal -3.0-3.0 [facility] Comment on above: Performed By: #### L AB79 ####Maint Mechanic: VIVIAN PANTOJA ([phone])[facility] ([facility])[address] [place] [address] [place] CO2 [Moles/Vol] 30.9 mmol/L High 24.0-28.0 [facility] Comment on above: Performed By: #### L AB79 ####Maint Mechanic: VIVIAN PANTOJA ([phone])[facility] ([facility])[address] [place] [address] HCO3 (Bld) [Moles/Vol] 29.0 mmol/L High 23.0-27.0 [facility] Comment on above: Performed By: #### L AB79 ####Maint Mechanic: VIVIAN PANTOJA ([phone])[facility])[address] [place] [address] Hemoglobin (Bld) [Mass/Vol] 9.6 g/dL Normal Screen only [facility] Comment on above: Performed By: #### L AB79 ####Maint Mechanic: VIVIAN PANTOJA ([phone])[facility] ([facility])[address] [place] [address] OXYGEN (MM HG) IN VENOUS BLOOD 58.1 mm Hg Normal [facility] Comment on above: Performed By: #### L AB79 ####Maint Mechanic: VIVIAN PANTOJA ([phone])[facility] ([facility])[address] [place] [address] OXYGEN SATURATION (%) IN VENOUS BLOOD 86.4 % Normal [facility] Comment on above: Performed By: #### L AB79 ####Maint Mechanic: VIVIAN PANTOJA ([phone])[facility] ([facility])[address] [place] [address] [place] PCO2, CHA 61.2 mm Hg High 40.0-55.0 [facility] Comment on above: Performed By: #### L AB79 ####Maint Mechanic: VIVIAN PANTOJA ([phone])[facility] ([facility])[address] [place] [address] [place] PH VENOUS 7.294 Low 7.330-7.430 [facility] Comment on above: Performed By: #### L AB79 ####Maint Mechanic: VIVIAN PANTOJA ([phone])[facility])[address] [place] [address] SOURCE OF OXYGEN 2L Normal [facility] Comment on above: Result Comment: LEOBARDO Gill COMMENTS:Assessment of oxygenation is best done with an arterial blood gas determination. Reference ranges for pO2, bicarbonate, and base excess are for mixed venous blood. Specimens drawn from a peripheral vein will often have higher values. Performed By: #### L AB79 ####Maint Mechanic: VIVIAN PANTOJA ([phone])[facility])[address] [place] [address] Base excess Calc (BldV) [Moles/Vol] 3.3 mmol/L High -3.0-3.0 [facility] Comment on above: Performed By: #### L AB79 ####Maint Mechanic: VIVIAN PANTOJA ([phone])[facility] ([facility])[address] [place] [address] CO2 [Moles/Vol] 31.4 mmol/L High 24.0-28.0 [facility] Comment on above: Performed By: #### L AB79 ####Maint Mechanic: VIVIAN PANTOJA ([phone])[facility])[address] [place] [address] HCO3 (Bld) [Moles/Vol] 29.7 mmol/L High 23.0-27.0 [facility] Comment on above: Performed By: #### L AB79 ####Maint Mechanic: VIVIAN PANTOJA ([phone])[facility])[address] [place] [address] Hemoglobin (Bld) [Mass/Vol] 9.3 g/dL Normal Screen only [facility] Comment on above: Performed By: #### L AB79 ####Maint Mechanic: VIVIAN PANTOJA ([phone])[facility])[address] [place] [address] OXYGEN (MM HG) IN VENOUS BLOOD 42.2 mm Hg Normal [facility] Comment on above: Performed By: #### L AB79 ####Maint Mechanic: VIVIAN PANTOJA ([phone])[facility])[address] [place] [address] OXYGEN SATURATION (%) IN VENOUS BLOOD 72.0 % Normal [facility] Comment on above: Performed By: #### L AB79 ####Maint Mechanic: VIVIAN PANTOJA ([phone])[facility])[address] [place] [address] PCO2, CHA 55.6 mm Hg High 40.0-55.0 [facility] Comment on above: Performed By: #### L AB79 ####Maint Mechanic: VIVIAN PANTOJA ([phone])[facility])[address] [place] [address] PH VENOUS 7.346 Normal 7.330-7.430 [facility] Comment on above: Performed By: #### L AB79 ####Maint Mechanic: VIVIAN PANTOJA ([phone])[address] SOURCE OF OXYGEN 30% Oxygen Normal [facility] Comment on above: Result Comment: WALDO CHAVEZ COMMENTS:Assessment of oxygenation is best done with an arterial blood gas determination. Reference ranges for pO2, bicarbonate, and base excess are for mixed venous blood. Specimens drawn from a peripheral vein will often have higher values. Performed By: #### L AB79 ####Maint Mechanic: VIVIAN PANTOJA ([phone])[facility] ([facility])[address] [place] [address] Basic metabolic 1998 panelon 05-04-2024 Anion gap [Moles/Vol] 7 mmol/L 3 - 13 mmol/L [facility] Calcium [Mass/Vol] 8.4 mg/dL Low 8.8 - 10. 0 mg/dL [facility] Chloride [Moles/Vol] 109 mmol/L High 98 - 10 7 mmol/L [facility] CO2 [Moles/Vol] 27 mmol/L 23 - 31 mmol/L [facility] Creatinine [Mass/Vol] 0.93 mg/dL 0.57 - 1.11 mg/dL [facility] GFR/1.73 sq M.predicted (S/P/Bld) [Vol rate/Area] 65 mL/min - PINF [facility] Glucose [Mass/Vol] 95 mg/dL 82 - 115 mg/dL [facility] Potassium [Moles/Vol] 4.1 mmol/L 3.5 - 5.1 mmol/L [facility] Sodium [Moles/Vol] 143 mmol/L 136 - 145 mmol/L [facility] Urea nitrogen [Mass/Vol] 23 mg/dL 9 - 23 mg/dL [facility] CALCIUM, IONIZEDon CALCIUM IONIZED 4.30 mg/dL Normal 4.30-5.20 [facility] Comment on above: Performed By: #### L AB54 ####Maint Mechanic: VIVIAN PANTOJA ([phone])[facility])[address] [place] [address] PH, IONIZED CALCIUM 7.35 Normal 7.31-7.46 [facility] Comment on above: Performed By: #### L AB54 ####Maint Mechanic: VIVIAN PANTOJA ([phone])[facility])[address] [place] [address] CBC (HEMOGRAM)on 05-04-2024 Erythrocyte distribution width (RBC) [Ratio] 15.1 % High 11.5-15.0 [facility] Comment on above: Performed By: #### L [id number] ####Maint Mechanic: VIVIAN PANTOJA ([phone])[facility])[address] [place] [address] Hematocrit (Bld) [Volume fraction] 26.7 % Low 35.0-47.0 [facility] Comment on above: Performed By: #### L AB294 ####Maint Mechanic: VIVIAN PANTOJA ([phone])[facility])[address] [place] [address] Hemoglobin (Bld) [Mass/Vol] 8.2 g/dL Low 11.7-16.0 [facility] Comment on above: Performed By: #### L [id number] ####Maint Mechanic: VIVIAN PANTOJA ([phone])[facility] ([facility])[address] [place] [address] IPF 13 Normal [facility] Comment on above: Performed By: #### L [id number] ####Maint Mechanic: VIVIAN PANTOJA ([phone])[facility] ([facility])[address] [place] [address] MCH (RBC) [Entitic mass] 27.9 pg Normal 26.0-34.0 [facility] Comment on above: Performed By: #### L [id number] ####Maint Mechanic: VIVIAN PANTOJA ([id number])[facility])[address] [place] [address] MCHC 30.7 % Normal 30.5-36.0 [facility] Comment on above: Performed By: #### L [id number] ####Maint Mechanic: VIVIAN PANTOJA ([phone])[facility] ([facility])[address] [place] [address] MCV (RBC) [Entitic vol] 90.8 fL Normal 77.0-99.0 [facility] Comment on above: Performed By: #### L [id number] ####Maint Mechanic: VIVIAN PANTOJA ([phone])[facility] ([facility])[address] [place] [address] Platelet mean volume (Bld) [Entitic vol] 13.8 fL High 9.0-12.7 [facility] Comment on above: Performed By: #### L [id number] ####Maint Mechanic: VIVIAN PANTOJA ([phone])[facility] ([facility])[address] [place] [address] [place] Platelets (Bld) [#/Vol] 46 10*3/uL Low 140-440 [facility] Comment on above: Performed By: #### L [id number] ####Maint Mechanic: VIVIAN PANTOJA ([phone])[facility] ([facility])[address] [place] [address] RBC (Bld) [#/Vol] 2.94 10*6/uL Low 3.80-5.20 [facility] Comment on above: Performed By: #### L [id number] ####Maint Mechanic: VIVIAN PANTOJA ([phone])[facility] ([facility])[address] [place] [address] WBC (Bld) [#/Vol] 6.9 10*3/uL Normal 3.6-10.7 [facility] Comment on above: Performed By: #### L [id number] ####Maint Mechanic: VIVIAN PANTOJA ([phone])[facility] ([facility])[address] [place] [address] CBC panel Auto (Bld)Ordered By: Alize Peraza on 05-04-2024 Erythrocyte distribution width (RBC) [Ratio] 15.1 % High 11.5 - 15.0 % [facility] Hematocrit (Bld) [Volume fraction] 26.7 % Low 35.0 - 47.0 % [facility] Hemoglobin (Bld) [Mass/Vol] 8.2 g/dL Low 11.7 - 16.0 g/dL [facility] Interpretation and review of laboratory results Abnormal [facility] IPF 13 [facility] MCH (RBC) [Entitic mass] 27.9 pg 26.0 - 34.0 pg [facility] MCHC (RBC) [Mass/Vol] 30.7 % 30.5 - 36.0 % [facility] MCV (RBC) [Entitic vol] 90.8 fL 77.0 - 99.0 fL [facility] Platelet mean volume (Bld) [Entitic vol] 13.8 fL High 9.0 - 12.7 fL [facility] Platelets (Bld) [#/Vol] 46 10*3/uL Low 140 - 440 10*3/uL [facility] RBC (Bld) [#/Vol] 2.94 10*6/uL Low 3.80 - 5.2 0 10*6/uL [facility] WBC (Bld) [#/Vol] 6.9 10*3/uL 3.6 - 10.7 10*3/uL [facility] Calcium.ionized [Moles/Vol]o n 05-04-2024 Calcium.ionized (Bld) [Moles/Vol] 4.3 mg/dL 4.30 - 5.20 mg/dL [facility] Interpretation and review of laboratory results Normal [facility] PH, IONIZED CALCIUM 7.35 7.31 - 7.46 [facility] Cobalamin (Vitamin B12) [Mas s/Vol]on 05-04-2024 Interpretation and review of laboratory results Normal [facility] Consulton 05-04-2024 Consult Normal [facility] HIV1,2 COMBO ANTIGEN-ANTIBOD Y SCREENon 05-04-2024 HIV 1,2 COMBO ANTIGEN/ANTIBODY Non-Reactive Normal Nonreactive [facility] Comment on above: Result Comment: The specimen was non-reactive for HIV-1 and HIV-2 antibodies and p24 antigen using an FDA-cleared 4th generation HIV test. Based on this non-reactive screen result, further reflexive testing was not indicated and was, therefore, not performed. Performed By: #### L [id number] ####Maint Mechanic: VIVIAN PANTOJA ([phone])[address] Laboratory - Chemistry and C hemistry - challengeon 05-04-2024 Procalcitonin [Mass/Vol] 0.11 ng/mL High NINF - 0.07 ng/mL [facility] Cobalamin (Vitamin B12) [Mass/Vol] 806 pg/mL 213 - 816 pg/mL [facility] Magnesium [Mass/Vol] 1.6 mg/dL 1.6 - 2 .6 mg/dL [facility] Base excess Calc (BldV) [Moles/Vol] 3.3 mmol/L High -3.0 - 3.0 mmol/L [facility] CO2 (BldV) [Partial pressure] 55.6 mm[Hg] High [facility] CO2 [Moles/Vol] 31.4 mmol/L High 24.0 - 28.0 mmol/L [facility] HCO3 (Bld) [Moles/Vol] 29.7 mmol/L High 23.0 - 27.0 mmol/L [facility] Oxygen (BldV) [Partial pressure] 42.2 mm[Hg] mm Hg [facility] pH (BldV) 7.346 [pH] 7.330 - 7.430 [facility] Laboratory - Chemistry and C hemistry - challengeOrdered By: Elias Swab on 05-04-2024 Base excess Calc (BldV) [Moles/Vol] 1.7 mmol/L -3.0 - 3.0 mmol/L [facility] CO2 (BldV) [Partial pressure] 61.2 mm[Hg] High [facility] CO2 [Moles/Vol] 30.9 mmol/L High 24.0 - 28.0 mmol/L [facility] HCO3 (Bld) [Moles/Vol] 29 mmol/L High 23.0 - 27.0 mmol/L [facility] Oxygen (BldV) [Partial pressure] 58.1 mm[Hg] mm Hg [facility] pH (BldV) 7.294 [pH] Low 7.330 - 7.430 [facility] Laboratory - Hematology and Cell countsOrdered By: Elias Swab on 05-04-2024 Hemoglobin (Bld) [Mass/Vol] 9.6 g/dL Screen only [facility] Laboratory - Hematology and Cell countson 05-04-2024 Hemoglobin (Bld) [Mass/Vol] 9.3 g/dL Screen only [facility] MAGNESIUMon 05-04-2024 Magnesium [Mass/Vol] 1.6 mg/dL Normal 1.6-2.6 [facility] Comment on above: Result Comment: LEOBARDO Gill COMMENTS:Higher values can be expected in females during menses. Performed By: #### L [id number], [id number], [id number] ####Maint Mechanic: VIVIAN PANTOJA ([phone])[address] Magnesium [Mass/Vol]on 05-04 Interpretation and review of laboratory results Normal [facility] No Panel InformationOrdered By: Elias Swab on 05-04-2024 Interpretation and review of laboratory results Abnormal [facility] Source Of Oxygen 2L [facility] No Panel Informationon 05-04 Interpretation and review of laboratory results Abnormal [facility] Interpretation and review of laboratory results Abnormal [facility] Source Of Oxygen 30% Oxygen [facility] PHOSPHORUSon 05-04-2024 Phosphate [Mass/Vol] 2.1 mg/dL Low 2.3-4.7 [facility] Comment on above: Performed By: #### L AB15, [id number], [id number] ####Maint Mechanic: VIVIAN PANTOJA ([phone])[facility])[address] [place] [address] PNEUMONIA PCR PANELon 2024 PNEUMONIA PCR PANEL Normal [facility] Comment on above: Performed By: #### L [id number] ####Maint Mechanic: VIVIAN PANTOJA ([phone])[facility])[address] [place] [address] PROCALCITONIN TESTon 025 PROCALCITONIN 0.11 ng/mL High <0.07 [facility] Comment on above: Result Comment: LEOBARDO R COMMENTS:PCT <0.50 = Low risk of severe sepsis and/or septic shock.PCT >2.00 = High risk of severe sepsis and/or septic shock. Performed By: #### L [id number] ####Maint Mechanic: VIVIAN PANTOJA ([phone])[facility])[address] [place] [address] [place] Phosphate [Moles/Vol]on 04-16 Phosphate [Mass/Vol] 2.1 mg/dL Low 2.3 - 4 .7 mg/dL [facility] Procalcitonin [Mass/Vol]on 0 05-04-2024 Interpretation and review of laboratory results Abnormal [facility] Progress Noteon 05-04-2024 Progress Note Normal [facility] Progress Note Normal [facility] Progress Note Normal [facility] Progress Note Normal [facility] Progress Note Normal [facility] Progress Note Normal [facility] RESPIRATORY CULTURE AND STAI Non 05-04-2024 RESPIRATORY CULTURE AND STAIN Normal [facility] Comment on above: Performed By: #### L [id number] ####Maint Mechanic: VIVIAN PANTOJA ([phone])[facility])[address] [place] [address] Respiratory pathogens DNA an d RNA panel STEPHANIE+non-probe (Lower resp)Ordered By: Danna Perez on 05-04-2024 Acinetobacter baumannii complex Not detected Not Detected [facility] Adenovirus Not detected Not Detected [facility] Chlamydia pneumoniae Not detected Not Detected [facility] Enterobacter cloacae complex Not detected Not Detected [facility] Escherichia coli Not detected Not Detected [facility] FLUAV RNA STEPHANIE+non-probe Ql (Lower resp) Detected Abnormal Not Detected [facility] FLUBV RNA STEPHANIE+non-probe Ql (Lower resp) Not detected Not Detected [facility] Haemophilus influenzae Not detected Not Detecte d [facility] Human Metapneumovirus Not detected Not Detected [facility] Rhinovirus/Enterovirus Not detected Not Detected [facility] Interpretation and review of laboratory results Abnormal [facility] Klebsiella (Enterobacter) aerogenes Not detected Not Detected [facility] Klebsiella oxytoca Not detected Not Detected [facility] Klebsiella pneumoniae Not detected Not Detected [facility] Legionella pneumophila Not detected Not Detecte d [facility] mecA Not detected Not Detected [facility] Moraxella catarrhalis Not detected Not Detected [facility] Mycoplasma pneumoniae Not detected Not Detected [facility] Parainfluenza virus Not detected Not Detected [facility] Proteus spp Not detected Not Detected [facility] Pseudomonas aeruginosa Not detected Not Detecte d [facility] RSV RNA STEPHANIE+probe Ql (Resp) Not detected Not Detected [facility] S. agalactiae Org specific cx Ql (Vag fld) Not detected Not Detected [facility] SARS-CoV-2 (COVID-19) RNA STEPHANIE+non-probe Ql (Nph) Not detected Not Detected [facility] Serratia marcescens Not detected Not Detected [facility] Staphylococcus aureus Detected Abnormal Not Detected [facility] Streptococcus pneumoniae Not detected Not Detected [facility] Streptococcus pyogenes Not detected Not Detecte d [facility] VITAMIN B12on 05-04-2024 Cobalamin (Vitamin B12) [Mass/Vol] 806 pg/mL Normal 213-816 [facility] Comment on above: Performed By: #### L [id number] ####Maint Mechanic: AMAN SANTOS ([phone])[facility])[address] [place], [place] [id number] [facility] Vital signsOrdered By: Ellen rowley Swab on 05-04-2024 Oxygen saturation in Venous blood 86.4 % [facility] Vital signson 05-04-2024 Oxygen saturation in Venous blood 72 % [facility] XR CHEST 1 VIEWon 05-04-2024 XR CHEST 1 VIEW Normal [facility] XR Chest Single viewon 05-04 [facility] Radiology Study observation (narrative) [facility] [id number] 05-03-2024 [id number] Normal [facility] 36on 05-03-2024 36 Currently admitted Normal [facility] BASIC METABOLIC PANELon 04-15 Anion gap [Moles/Vol] 5 mmol/L Normal 3-13 [facility] Comment on above: Performed By: #### L [id number], LAB15, LAB69 ####Maint Mechanic: VIVIAN PANTOJA ([phone])[facility])[address] [place] [address] Calcium [Mass/Vol] 8.6 mg/dL Low 8.8-10.0 [facility] Comment on above: Performed By: #### Manpreet [id number], LAB15, LAB69 ####Maint Mechanic: VIVIAN PANTOJA ([phone])[facility] ([facility])[address] [place] [address] [place] Chloride [Moles/Vol] 111 mmol/L High 98-107 [facility] Comment on above: Performed By: #### L [id number], LAB15, LAB69 ####Maint Mechanic: VIVIAN PANTOJA ([phone])[facility] ([facility])[address] [place] [address] [place] CO2 [Moles/Vol] 29 mmol/L Normal 23-31 [facility] Comment on above: Performed By: #### L [id number], LAB15, LAB69 ####Maint Mechanic: VIVIAN PANTOJA ([phone])[facility] ([facility])[address] [place] [address] [place] Creatinine [Mass/Vol] 0.89 mg/dL Normal 0.57-1.11 [facility] Comment on above: Performed By: #### L [id number], LAB15, LAB69 ####Maint Mechanic: VIVIAN PANTOJA ([phone])[facility])[address] [place] [address] GLOMERULAR FILTRATION RATE ML/MIN/1.73 SQ M.PREDICTED 68.6 mL/min/1.73m*2 Normal >60.0 [facility] Comment on above: Result Comment: Calc ulation based on the Chronic Kidney Disease Epidemiology Collaboration (CKD-EPI) equation refit without adjustment for race Performed By: #### Manpreet [id number], LAB15, LAB69 ####Maint Mechanic: VIVIAN PANTOJA ([phone])[facility])[address] [place] [address] Glucose [Mass/Vol] 116 mg/dL High 82-115 [facility] Comment on above: Performed By: #### Manpreet AIKEN21, LAB15, LAB69 ####Maint Mechanic: VIVIAN PANTOJA ([phone])[address] Potassium [Moles/Vol] 4.8 mmol/L Normal 3.5-5.1 [facility] Comment on above: Result Comment: [facility] potassium values may be up to 0.5 mmol/L lower than serum values. Performed By: #### Manpreet [id number], LAB15, LAB69 ####Maint Mechanic: VIVIAN PANTOJA ([phone])[facility])[address] [place] [address] [place] Sodium [Moles/Vol] 145 mmol/L Normal 136-145 [facility] Comment on above: Performed By: #### Manpreet [id number], LAB15, LAB69 ####Maint Mechanic: VIVIAN PANTOJA ([phone])[facility])[address] [place] [address] [place] Urea nitrogen [Mass/Vol] 19 mg/dL Normal 9-23 [facility] Comment on above: Performed By: #### Manpreet [id number], LAB15, LAB69 ####Maint Mechanic: VIVIAN PANTOJA ([phone])[facility])[address] [place] [address] [place] Anion gap [Moles/Vol] 7 mmol/L Normal 3-13 [facility] Comment on above: Performed By: #### L AB68, LAB15 ####Maint Mechanic: VIVIAN PANTOJA ([phone])[facility] ([facility])[address] [place] [address] Calcium [Mass/Vol] 8.3 mg/dL Low 8.8-10.0 [facility] Comment on above: Performed By: #### L AB68, LAB15 ####Maint Mechanic: VIVIAN PANTOJA ([phone])[facility] ([facility])[address] [place] [address] Chloride [Moles/Vol] 113 mmol/L High 98-107 [facility] Comment on above: Performed By: #### L AB68, LAB15 ####Maint Mechanic: VIVIAN PANTOJA ([phone])[facility] ([facility])[address] [place] [address] CO2 [Moles/Vol] 23 mmol/L Normal 23-31 [facility] Comment on above: Performed By: #### L ABAntoni, LAB15 ####Maint Mechanic: VIVIAN PANTOJA ([phone])[facility] ([facility])[address] [place] [address] Creatinine [Mass/Vol] 0.90 mg/dL Normal 0.57-1.11 [facility] Comment on above: Performed By: #### L AB68, LAB15 ####Maint Mechanic: VIVIAN PANTOJA ([phone])[facility] ([facility])[address] [place] [address] [place] GLOMERULAR FILTRATION RATE ML/MIN/1.73 SQ M.PREDICTED 67.6 mL/min/1.73m*2 Normal >60.0 [facility] Comment on above: Result Comment: Calc ulation based on the Chronic Kidney Disease Epidemiology Collaboration (CKD-EPI) equation refit without adjustment for race Performed By: #### L AB68, LAB15 ####Maint Mechanic: VIVIAN PANTOJA ([phone])[facility] ([facility])[address] [place] [address] [place] Glucose [Mass/Vol] 136 mg/dL High 82-115 [facility] Comment on above: Performed By: #### L AB68, LAB15 ####Maint Mechanic: VIVIAN PANTOJA ([phone])[facility])[address] [place] [address] Potassium [Moles/Vol] 5.5 mmol/L High 3.5-5.1 [facility] Comment on above: Result Comment: [facility] potassium values may be up to 0.5 mmol/L lower than serum values. Performed By: #### L AB68, LAB15 ####Maint Mechanic: VIVIAN PANTOJA ([phone])[facility])[address] [place] [address] Sodium [Moles/Vol] 143 mmol/L Normal 136-145 [facility] Comment on above: Performed By: #### L AB68, LAB15 ####Maint Mechanic: VIVIAN PANTOJA ([phone])[facility])[address] [place] [address] Urea nitrogen [Mass/Vol] 17 mg/dL Normal 9-23 [facility] Comment on above: Performed By: #### L AB68, LAB15 ####Maint Mechanic: VIVIAN PANTOJA ([phone])[facility])[address] [place] [address] BLOOD GAS, VENOUSon 05-03-19 25 Base excess Calc (BldV) [Moles/Vol] 1.7 mmol/L Normal -3.0-3.0 [facility] Comment on above: Performed By: #### L AB79 ####Maint Mechanic: VIVIAN PANTOJA ([phone])[facility])[address] [place] [address] CO2 [Moles/Vol] 31.6 mmol/L High 24.0-28.0 [facility] Comment on above: Performed By: #### L AB79 ####Maint Mechanic: VIVIAN PANTOJA ([phone])[facility])[address] [place] [address] HCO3 (Bld) [Moles/Vol] 29.6 mmol/L High 23.0-27.0 [facility] Comment on above: Performed By: #### L [id number] ####Maint Mechanic: VIVIAN PANTOJA ([phone])[facility])[address] [place] [address] Hemoglobin (Bld) [Mass/Vol] 10.0 g/dL Normal Screen only [facility] Comment on above: Performed By: #### L AB79 ####Maint Mechanic: VIVIAN PANTOJA ([phone])[facility])[address] [place] [address] OXYGEN (MM HG) IN VENOUS BLOOD 46.1 mm Hg Normal [facility] Comment on above: Performed By: #### L [id number] ####Maint Mechanic: VIVIAN PANTOJA ([phone])[facility])[address] [place] [address] OXYGEN SATURATION (%) IN VENOUS BLOOD 75.3 % Normal [facility] Comment on above: Performed By: #### L [id number] ####Maint Mechanic: VIVIAN PANTOJA ([phone])[facility])[address] [place] [address] [place] PCO2, CHA 65.9 mm Hg High 40.0-55.0 [facility] Comment on above: Performed By: #### L AB79 ####Maint Mechanic: VIVIAN PANTOJA ([phone])[facility])[address] [place] [address] PH VENOUS 7.270 Low 7.330-7.430 [facility] Comment on above: Performed By: #### L [id number] ####Maint Mechanic: VIVIAN PANTOJA ([phone])[facility])[address] [place] [address] SOURCE OF OXYGEN 40% Oxygen Normal [facility] Comment on above: Result Comment: LEOBARDO [...] heparinized syringe. Performed By: #### L [id number] ####Maint Mechanic: VIVIAN PANTOJA ([phone])[facility])[address] [place] [address] Base excess Calc (BldV) [Moles/Vol] 2.2 mmol/L Normal -3.0-3.0 [facility] Comment on above: Performed By: #### L [id number] ####Maint Mechanic: VIVIAN PANTOJA ([phone])[facility] ([facility])[address] [place] [address] CO2 [Moles/Vol] 32.3 mmol/L High 24.0-28.0 [facility] Comment on above: Performed By: #### L [id number] ####Maint Mechanic: VIVIAN PANTOJA ([phone])[facility])[address] [place] [address] HCO3 (Bld) [Moles/Vol] 30.2 mmol/L High 23.0-27.0 [facility] Comment on above: Performed By: #### L [id number] ####Maint Mechanic: VIVIAN PANTOJA ([phone])[facility])[address] [place] [address] Hemoglobin (Bld) [Mass/Vol] 9.8 g/dL Normal Screen only [facility] Comment on above: Performed By: #### L [id number] ####Maint Mechanic: VIVIAN PANTOJA ([phone])[facility])[address] [place] [address] OXYGEN (MM HG) IN VENOUS BLOOD 51.7 mm Hg Normal [facility] Comment on above: Performed By: #### L [id number] ####Maint Mechanic: VIVIAN PANTOJA ([phone])[facility])[address] [place] [address] OXYGEN SATURATION (%) IN VENOUS BLOOD 80.3 % Normal [facility] Comment on above: Performed By: #### L [id number] ####Maint Mechanic: VIVIAN [phone])[facility] ([facility])[address] [place] [address] PCO2, CHA 67.7 mm Hg High 40.0-55.0 [facility] Comment on above: Performed By: #### L [id number] ####Maint Mechanic: VIVIAN PANTOJA ([phone])[facility] ([facility])[address] [place] [address] PH VENOUS 7.267 Low 7.330-7.430 [facility] Comment on above: Performed By: #### L AB79 ####Maint Mechanic: VIVIAN PANTOJA ([phone])[facility] ([facility])[address] [place] [address] SOURCE OF OXYGEN ETT Normal [facility] Comment on above: Result Comment: 40%O RDER COMMENTS:Assessment of oxygenation is best done with an arterial blood gas determination. Reference ranges for pO2, bicarbonate, and base excess are for mixed venous blood. Specimens drawn from a peripheral vein will often have higher values. Performed By: #### L [id number] ####Maint Mechanic: VIVIAN PANTOJA ([phone])[facility] ([facility])[address] [place] [address] Basic metabolic 1998 panelon 05-03-2024 Anion gap [Moles/Vol] 5 mmol/L 3 - 13 mmol/L [facility] Calcium [Mass/Vol] 8.6 mg/dL Low 8.8 - 10. 0 mg/dL [facility] Chloride [Moles/Vol] 111 mmol/L High 98 - 10 7 mmol/L [facility] CO2 [Moles/Vol] 29 mmol/L 23 - 31 mmol/L [facility] Creatinine [Mass/Vol] 0.89 mg/dL 0.57 - 1.11 mg/dL [facility] GFR/1.73 sq M.predicted (S/P/Bld) [Vol rate/Area] 68.6 mL/min - PINF [facility] Glucose [Mass/Vol] 116 mg/dL High 82 - 115 mg/dL [facility] Interpretation and review of laboratory results Abnormal [facility] Potassium [Moles/Vol] 4.8 mmol/L 3.5 - 5.1 mmol/L [facility] Sodium [Moles/Vol] 145 mmol/L 136 - 145 mmol/L [facility] Urea nitrogen [Mass/Vol] 19 mg/dL 9 - 23 mg/dL [facility] Basic metabolic 1998 panelOr yocasta By: Kenan Garcia on 05-03-2024 Anion gap [Moles/Vol] 7 mmol/L 3 - 13 mmol/L [facility] Calcium [Mass/Vol] 8.3 mg/dL Low 8.8 - 10. 0 mg/dL [facility] Chloride [Moles/Vol] 113 mmol/L High 98 - 10 7 mmol/L [facility] CO2 [Moles/Vol] 23 mmol/L 23 - 31 mmol/L [facility] Creatinine [Mass/Vol] 0.9 mg/dL 0.57 - 1.11 mg/dL [facility] GFR/1.73 sq M.predicted (S/P/Bld) [Vol rate/Area] 67.6 mL/min - PINF [facility] Glucose [Mass/Vol] 136 mg/dL High 82 - 115 mg/dL [facility] Interpretation and review of laboratory results Abnormal [facility] Potassium [Moles/Vol] 5.5 mmol/L High 3.5 - 5.1 mmol/L [facility] Sodium [Moles/Vol] 143 mmol/L 136 - 145 mmol/L [facility] Urea nitrogen [Mass/Vol] 17 mg/dL 9 - 23 mg/dL [facility] CBC (HEMOGRAM)on 05-03-2024 Erythrocyte distribution width (RBC) [Ratio] 15.1 % High 11.5-15.0 [facility] Comment on above: Performed By: #### L [id number] ####Maint Mechanic: VIVIAN PANTJOA ([phone])[address] Hematocrit (Bld) [Volume fraction] 28.0 % Low 35.0-47.0 [facility] Comment on above: Performed By: #### L [id number] ####Maint Mechanic: VIVIAN PANTOJA ([phone])[facility])[address] [place] [address] Hemoglobin (Bld) [Mass/Vol] 8.6 g/dL Low 11.7-16.0 [facility] Comment on above: Performed By: #### L [id number] ####Maint Mechanic: VIVIAN PANTOJA ([phone])[facility])[address] [place] [address] IPF 14 Normal [facility] Comment on above: Performed By: #### L [id number] ####Maint Mechanic: VIVIAN PANTOJA ([phone])[facility])[address] [place] [address] MCH (RBC) [Entitic mass] 28.2 pg Normal 26.0-34.0 [facility] Comment on above: Performed By: #### L [id number] ####Maint Mechanic: VIVIAN PANTOJA ([phone])[facility])[address] [place] [address] MCHC 30.7 % Normal 30.5-36.0 [facility] Comment on above: Performed By: #### L [id number] ####Maint Mechanic: VIVIAN PANTOJA ([phone])[facility] ([facility])[address] [place] [address] MCV (RBC) [Entitic vol] 91.8 fL Normal 77.0-99.0 [facility] Comment on above: Performed By: #### L [id number] ####Maint Mechanic: VIVIAN PANTOJA ([phone])[facility])[address] [place] [address] MPV Normal [facility] Comment on above: Result Comment: Unab le to calculate. Performed By: #### L [id number] ####Maint Mechanic: VIVIAN PANTOJA ([phone])[facility] ([facility])[address] [place] [address] Platelets (Bld) [#/Vol] 37 10*3/uL Low 140-440 [facility] Comment on above: Performed By: #### L [id number] ####Maint Mechanic: VIVIAN PANTOJA ([phone])[facility])[address] [place] [address] RBC (Bld) [#/Vol] 3.05 10*6/uL Low 3.80-5.20 [facility] Comment on above: Performed By: #### L [id number] ####Maint Mechanic: VIVIAN PANTOJA ([phone])[facility] ([facility])[address] [place] [address] WBC (Bld) [#/Vol] 7.3 10*3/uL Normal 3.6-10.7 [facility] Comment on above: Performed By: #### L [id number] ####Maint Mechanic: VIVIAN PANTOJA ([phone])[facility] ([facility])[address] [place] [address] CBC W Auto Differential pane l (Bld)Ordered By: Jacqui Gutierrez on 05-03-2024 Basophils (Bld) [#/Vol] 0 10*3/uL 0.0 - 0.2 10*3/uL [facility] Nonabox Basophils/100 WBC (Bld) 0.1 % 0.0 - 2.0 % [facility] Eosinophils (Bld) [#/Vol] 0 10*3/uL 0.0 - 0.5 10*3/uL [facility] Eosinophils/100 WBC (Bld) 0 % 0.0 - 6.0 % [facility] Erythrocyte distribution width (RBC) [Ratio] 15.1 % High 11.5 - 15.0 % [facility] Hematocrit (Bld) [Volume fraction] 32.1 % Low 35.0 - 47.0 % [facility] Hemoglobin (Bld) [Mass/Vol] 9.4 g/dL Low 11.7 - 16.0 g/dL [facility] Nonabox Immature granulocytes (Bld) [#/Vol] 0.1 10*3/uL High NINF - 0.1 10*3/uL [facility] Nonabox Immature granulocytes/100 WBC (Bld) 1 % 0.0 - 2.0 % [facility] Interpretation and review of laboratory results Abnormal [facility] IPF 15 [facility] Lymphocytes (Bld) [#/Vol] 0.5 10*3/uL Low 1.0 - 4.3 10*3/uL [facility] Lymphocytes/100 WBC (Bld) 6.7 % Low 15.0 - 45.0 % [facility] MCH (RBC) [Entitic mass] 27.9 pg 26.0 - 34.0 pg [facility] MCHC (RBC) [Mass/Vol] 29.3 % Low 30.5 - 36.0 % [facility] MCV (RBC) [Entitic vol] 95.3 fL 77.0 - 99.0 fL [facility] Monocytes (Bld) [#/Vol] 1.3 10*3/uL High 0.0 - 0.9 10*3/uL [facility] Monocytes/100 WBC (Bld) 18.2 % High 5.0 - 13.0 % [facility] Neutrophils (Bld) [#/Vol] 5.4 10*3/uL 1.8 - 7.5 10*3/uL [facility] Neutrophils/100 WBC (Bld) 74 % 38.0 - 82.0 % [facility] Nucleated RBC/100 WBC (Bld) [Ratio] 0 % [facility] Platelet mean volume (Bld) [Entitic vol] 13.9 fL High 9.0 - 12.7 fL [facility] Platelets (Bld) [#/Vol] 44 10*3/uL Low 140 - 440 10*3/uL [facility] RBC (Bld) [#/Vol] 3.37 10*6/uL Low 3.80 - 5.2 0 10*6/uL [facility] WBC (Bld) [#/Vol] 7.3 10*3/uL 3.6 - 10.7 10*3/uL [facility] CBC WITH AUTO DIFFERENTIALon 05-03-2024 Basophils (Bld) [#/Vol] 0.0 10*3/uL Normal 0.0-0.2 [facility] Comment on above: Performed By: #### L [id number] ####Maint Mechanic: VIVIAN PANTOJA ([phone])[facility] ([address] Basophils/100 WBC (Bld) 0.1 % Normal 0.0-2.0 [facility] Comment on above: Performed By: #### L [id number] ####Maint Mechanic: VIVIAN [phone])[address] Eosinophils (Bld) [#/Vol] 0.0 10*3/uL Normal 0.0-0.5 [facility] Comment on above: Performed By: #### L [id number] ####Maint Mechanic: VIVIAN PANTOJA ([phone])[facility])[address] [place] [address] Eosinophils/100 WBC (Bld) 0.0 % Normal 0.0-6.0 [facility] Comment on above: Performed By: #### L [id number] ####Maint Mechanic: VIVIAN PANTOJA ([phone])[address] Erythrocyte distribution width (RBC) [Ratio] 15.1 % High 11.5-15.0 [facility] Comment on above: Performed By: #### L [id number] ####Maint Mechanic: VIVIAN PANTOJA ([phone])[address] Hematocrit (Bld) [Volume fraction] 32.1 % Low 35.0-47.0 [facility] Comment on above: Performed By: #### L [id number] ####Maint Mechanic: VIVIAN PANTOJA ([phone])[address] Hemoglobin (Bld) [Mass/Vol] 9.4 g/dL Low 11.7-16.0 [facility] Comment on above: Performed By: #### L [id number] ####Maint Mechanic: VIVIAN PANTOJA ([phone])[facility])[address] [place] [address] IMMATURE GRANS % 1.0 % Normal 0.0-2.0 [facility] Comment on above: Performed By: #### L [id number] ####Maint Mechanic: VIVIAN PANTOJA ([phone])[address] IMMATURE GRANS ABSOLUTE 0.1 10*3/uL High <0.1 [facility] Comment on above: Performed By: #### L [id number] ####Maint Mechanic: VIVIAN PANTOJA ([phone])[facility])[address] [place] [address] IPF 15 Normal [facility] Comment on above: Performed By: #### L [id number] ####Maint Mechanic: VIVIAN PANTOJA ([phone])[facility])[address] [place] [address] Lymphocytes (Bld) [#/Vol] 0.5 10*3/uL Low 1.0-4.3 [facility] Comment on above: Performed By: #### L [id number] ####Maint Mechanic: VIVIAN PANTOJA ([phone])[address] Lymphocytes/100 WBC (Bld) 6.7 % Low 15.0-45.0 [facility] Comment on above: Performed By: #### L [id number] ####Maint Mechanic: VIVIAN PANTOJA ([phone])[address] MCH (RBC) [Entitic mass] 27.9 pg Normal 26.0-34.0 [facility] Comment on above: Performed By: #### L [id number] ####Maint Mechanic: VIVIAN PANTOJA ([phone])[address] MCHC 29.3 % Low 30.5-36.0 [facility] Comment on above: Performed By: #### L [id number] ####Maint Mechanic: VIVIAN PANTOJA ([phone])[address] MCV (RBC) [Entitic vol] 95.3 fL Normal 77.0-99.0 [facility] Comment on above: Performed By: #### L [id number] ####Maint Mechanic: VIVIAN PANTOJA ([phone])[facility] ([facility])[address] [place] [address] Monocytes (Bld) [#/Vol] 1.3 10*3/uL High 0.0-0.9 [facility] Comment on above: Performed By: #### L [id number] ####Maint Mechanic: VIVIAN PANTOJA ([phone])[facility] ([facility])[address] [place] [address] Monocytes/100 WBC (Bld) 18.2 % High 5.0-13.0 [facility] Comment on above: Performed By: #### L [id number] ####Maint Mechanic: VIVIAN PANTOJA ([phone])[facility])[address] [place] [address] NEUTROPHILS ABSOLUTE 5.4 10*3/uL Normal 1.8-7.5 [facility] Comment on above: Performed By: #### L [id number] ####Maint Mechanic: VIVIAN PANTOJA ([phone])[facility] ([facility])[address] [place] [address] Neutrophils/100 WBC (Bld) 74.0 % Normal 38.0-82.0 [facility] Comment on above: Performed By: #### L [id number] ####Maint Mechanic: VIVIAN PANTOJA ([phone])[facility])[address] [place] [address] NRBC 0.0 /100 WBCs Normal 0.0-2.0 [facility] Comment on above: Performed By: #### L [id number] ####Maint Mechanic: VIVIAN PANTOJA ([phone])[facility] ([facility])[address] [place] [address] Platelet mean volume (Bld) [Entitic vol] 13.9 fL High 9.0-12.7 [facility] Comment on above: Performed By: #### L [id number] ####Maint Mechanic: VIVIAN PANTOJA ([phone])[facility] ([facility])[address] [place] [address] [place] Platelets (Bld) [#/Vol] 44 10*3/uL Low 140-440 [facility] Comment on above: Performed By: #### L [id number] ####Maint Mechanic: VIVIAN PANTOJA ([phone])[facility])[address] [place] [address] RBC (Bld) [#/Vol] 3.37 10*6/uL Low 3.80-5.20 [facility] Comment on above: Performed By: #### L [id number] ####Maint Mechanic: VIVIAN PANTOJA ([phone])[facility] ([facility])[address] [place] [address] WBC (Bld) [#/Vol] 7.3 10*3/uL Normal 3.6-10.7 [facility] Comment on above: Performed By: #### L [id number] ####Maint Mechanic: VIVIAN PANTOJA ([phone])[facility] ([facility])[address] [place] [address] CBC panel Auto (Bld)on 05-03 Erythrocyte distribution width (RBC) [Ratio] 15.1 % High 11.5 - 15.0 % [facility] Hematocrit (Bld) [Volume fraction] 28 % Low 35.0 - 47.0 % [facility] Hemoglobin (Bld) [Mass/Vol] 8.6 g/dL Low 11.7 - 16.0 g/dL [facility] Interpretation and review of laboratory results Abnormal [facility] IPF 14 [facility] MCH (RBC) [Entitic mass] 28.2 pg 26.0 - 34.0 pg [facility] MCHC (RBC) [Mass/Vol] 30.7 % 30.5 - 36.0 % [facility] MCV (RBC) [Entitic vol] 91.8 fL 77.0 - 99.0 fL [facility] Platelet mean volume (Bld) [Entitic vol] [facility] Platelets (Bld) [#/Vol] 37 10*3/uL Low 140 - 440 10*3/uL [facility] RBC (Bld) [#/Vol] 3.05 10*6/uL Low 3.80 - 5.2 0 10*6/uL [facility] WBC (Bld) [#/Vol] 7.3 10*3/uL 3.6 - 10.7 10*3/uL [facility] ETHYL GLUCURONIDE SCREEN, UR INEon 05-03-2024 ETHYL GLUCURONIDE, URINE Negative Normal Negative [facility] Comment on above: Result Comment: LEOBARDO [...] been determined by the clinical laboratories of [facility]. Performed By: #### L [id number] ####Maint Mechanic: VIVIAN PANTOJA ([phone])[facility])[address] [place] [address] FERRITINon 05-03-2024 Ferritin [Mass/Vol] 415 ng/mL High 5-204 [facility] Comment on above: Result Comment: LEOBARDO Gill COMMENTS:Ferritin levels below 10 ng/mL have been reported as indicative of iron deficiency anemia. Performed By: #### L [id number], LAB15 ####Maint Mechanic: VIVIAN PANTOJA ([phone])[facility])[address] [place] [address] FOLATEon 05-03-2024 FOLATE RESULT 3.7 ng/mL Low 7.0-31.4 [facility] Comment on above: Performed By: #### L [id number], [id number], LAB69 ####Maint Mechanic: VIVIAN PANTOJA ([phone])[facility])[address] [place] [address] [place] Ferritin [Mass/Vol]on 2024 Interpretation and review of laboratory results Abnormal [facility] Folate [Mass/Vol]on 05-03-19 Interpretation and review of laboratory results Abnormal [facility] HCV Ab IA Qlon 05-03-2024 [facility] HEPATITIS C ANTIBODYon 05-03 HCV Ab IA Ql Not detected Normal Not Detected [facility] Comment on above: Result Comment: Nancy ents with DETECTED Hepatitis C Ab results should have a new specimen submitted for supplemental testing with a Hepatitis C Quantitative RNA assay (viral load), if clinically indicated. Performed By: #### L [id number] ####Maint Mechanic: VIVIAN PANTOJA ([phone])[facility])[address] [place] [address] IRON AND TIBCon 05-03-2024 IRON BINDING CAPACITY 157 ug/dL Low 250-450 [facility] Comment on above: Performed By: #### L [id number] ####Maint Mechanic: VIVIAN PANTOJA ([phone])[facility])[address] [place] [address] IRON SATURATION 16.6 % Low 20.0-50.0 [facility] Comment on above: Performed By: #### L [id number] ####Maint Mechanic: VIVIAN PANTOJA ([phone])[facility])[address] [place] [address] IRON, TOTAL 26 ug/dL Low 50-170 [facility] Comment on above: Result Comment: TCSi gnificant interference from hemolysis. Result integrity compromised. Interpret with caution. Performed By: #### L [id number] ####Maint Mechanic: VIVIAN PANTOJA ([phone])[facility])[address] [place] [address] Iron and Iron binding capaci ty panelon 05-03-2024 Interpretation and review of laboratory results Abnormal [facility] Iron [Mass/Vol] 26 ug/dL Low 50 - 170 ug/dL [facility] Iron binding capacity [Mass/Vol] 157 ug/dL Low 250 - 450 ug/dL [facility] Iron saturation [Mass fraction] 16.6 % Low 20.0 - 50.0 % [facility] LACTIC ACID WITH REFLEXon Lactate [Moles/Vol] 1.0 mmol/L Normal 0.5-2.2 [facility] Comment on above: Performed By: #### L [id number] ####Maint Mechanic: VIVIAN PANTOJA ([phone])[facility] ([facility])[address] [place] [address] Laboratory - Chemistry and C hemistry - challengeon 05-03-2024 Folate [Mass/Vol] 3.7 ng/mL Low 7.0 - 31.4 ng/mL [facility] Procalcitonin [Mass/Vol] 0.16 ng/mL High NINF - 0.07 ng/mL [facility] Ferritin [Mass/Vol] 415 ng/mL High 5 - 204 ng/mL [facility] Lactate [Moles/Vol] 1 mmol/L 0.5 - 2. 2 mmol/L [facility] Base excess Calc (BldV) [Moles/Vol] 2.2 mmol/L -3.0 - 3.0 mmol/L [facility] CO2 (BldV) [Partial pressure] 67.7 mm[Hg] High [facility] CO2 [Moles/Vol] 32.3 mmol/L High 24.0 - 28.0 mmol/L [facility] HCO3 (Bld) [Moles/Vol] 30.2 mmol/L High 23.0 - 27.0 mmol/L [facility] Oxygen (BldV) [Partial pressure] 51.7 mm[Hg] mm Hg [facility] pH (BldV) 7.267 [pH] Low 7.330 - 7.430 [facility] Laboratory - Chemistry and C hemistry - challengeOrdered By: Obey Rodríguez on 05-03-2024 Base excess Calc (BldV) [Moles/Vol] 1.7 mmol/L -3.0 - 3.0 mmol/L [facility] CO2 (BldV) [Partial pressure] 65.9 mm[Hg] High [facility] CO2 [Moles/Vol] 31.6 mmol/L High 24.0 - 28.0 mmol/L [facility] HCO3 (Bld) [Moles/Vol] 29.6 mmol/L High 23.0 - 27.0 mmol/L [facility] Oxygen (BldV) [Partial pressure] 46.1 mm[Hg] mm Hg [facility] pH (BldV) 7.27 [pH] Low 7.330 - 7.430 [facility] Laboratory - Hematology and Cell countsOrdered By: Obey Rodríguez on 05-03-2024 Hemoglobin (Bld) [Mass/Vol] 10 g/dL Screen only [facility] Laboratory - Hematology and Cell countson 05-03-2024 Hemoglobin (Bld) [Mass/Vol] 9.8 g/dL Screen only [facility] Laboratory - Microbiology an d Antimicrobial susceptibilityon 05-03-2024 HCV Ab IA Ql Not detected Not Detected [facility] MRSA BY PCRon 05-03-2024 MRSA BY PCR Normal [facility] Comment on above: Performed By: #### L [id number] ####Maint Mechanic: VIVIAN PANTOJA ([phone])[facility] ([facility])[address] [place] [address] MRSA DNA STEPHANIE+probe Ql (Nose) on 05-03-2024 Interpretation and review of laboratory results Abnormal [facility] mecA gene Not detected Not Detected [facility] Staphylococcus aureus Detected Abnormal Not Detected S [facility] No Panel InformationOrdered By: Geraldine Lopez on 05-03-2024 ETHYL GLUCURONIDE, URINE Negative Negative [facility] No Panel Informationon 05-03 Interpretation and review of laboratory results Normal [facility] Extra Tube Hold for add-ons[facility] Interpretation and review of laboratory results Normal [facility] Interpretation and review of laboratory results Abnormal [facility] Source Of Oxygen ETT [facility] No Panel InformationOrdered By: Obey Rodríguez on 05-03-2024 Interpretation and review of laboratory results Abnormal [facility] Source Of Oxygen 40% Oxygen [facility] No Panel InformationOrdered By: Vipul Phoenix on 05-03-2024 Legionella pneumophila Ag Not detected Not Detected [facility] Streptococcus pneumoniae Ag Not detected Not Detected [facility] PROCALCITONIN TESTon 025 PROCALCITONIN 0.16 ng/mL High <0.07 [facility] Comment on above: Result Comment: LEOBARDO Gill COMMENTS:PCT <0.50 = Low risk of severe sepsis and/or septic shock.PCT >2.00 = High risk of severe sepsis and/or septic shock. Performed By: #### L [id number], LAB15, LAB69 ####Maint Mechanic: VIVIAN PANTOJA ([phone])[facility] ([facility])[address] [place] [address] Procalcitonin [Mass/Vol]on 0 05-03-2024 Interpretation and review of laboratory results Abnormal [facility] Progress Noteon 05-03-2024 Progress Note Normal [facility] Progress Note Vancomycin therapy h as been discontinued by Dr. Alin José on 06/10/34. Thank you for the consult. Pharmacy signing off for vancomycin dosing. Estephania Clayton [facility], Date: 05/03/24 Time: 11:03 AM Normal [facility] Progress Note Normal [facility] Progress Note Normal [facility] Progress Note Normal [facility] Progress Note Normal [facility] Respiratory pathogens DNA an d RNA panel STEPHANIE+non-probe (Nph)on 05-03-2024 Adenovirus Not detected Not Detected [facility] B. pertussis DNA STEPHANIE+probe Ql (Unsp spec) Not detected Not Detected [facility] Bordetella parapertussis Not detected Not Detected [facility] Chlamydia pneumoniae Not detected Not Detected [facility] Coronavirus 229E Not detected Not Detected [facility] Coronavirus HKU1 Not detected Not Detected [facility] Coronavirus NL63 Not detected Not Detected [facility] Coronavirus OC43 Not detected Not Detected [facility] FLUAV RNA STEPHANIE+non-probe Ql (Nph) Detected Abnormal Not Detected [facility] FLUBV RNA STEPHANIE+non-probe Ql (Nph) Not detected Not Detected [facility] Human Metapneumovirus Not detected Not Detected [facility] Rhinovirus/Enterovirus Not detected Not Detected [facility] Interpretation and review of laboratory results Abnormal [facility] Mycoplasma pneumoniae Not detected Not Detected [facility] Parainfluenza 1 Not detected Not Detected [facility] Parainfluenza 2 Not detected Not Detected [facility] Parainfluenza 3 Not detected Not Detected [facility] Parainfluenza 4 Not detected Not Detected [facility] Respiratory Syncytial Virus Not detected Not Detected [facility] SARS-CoV-2 (COVID-19) RNA STEPHANIE+non-probe Ql (Nph) Not detected Not Detected [facility] Vital signsOrdered By: Alfredo Rodríguez on 05-03-2024 Oxygen saturation in Venous blood 75.3 % [facility] Vital signson 05-03-2024 Oxygen saturation in Venous blood 80.3 % [facility] 30on 05-02-2024 30 Normal [facility] 36on 05-02-2024 36 Currently admitted Normal [facility] BASIC METABOLIC PANELon 04-15 Anion gap [Moles/Vol] 8 mmol/L Normal 3-13 [facility] Comment on above: Performed By: #### L [id number] ####Maint Mechanic: VIVIAN PANTOJA ([phone])[facility])[address] [place] [address] Calcium [Mass/Vol] 8.7 mg/dL Low 8.8-10.0 [facility] Comment on above: Performed By: #### L [id number] ####Maint Mechanic: VIVIAN PANTOJA ([phone])[facility] ([facility])[address] [place] [address] Chloride [Moles/Vol] 113 mmol/L High 98-107 [facility] Comment on above: Performed By: #### L [id number] ####Maint Mechanic: VIVIAN PANTOJA ([phone])[facility] ([facility])[address] [place] [address] CO2 [Moles/Vol] 25 mmol/L Normal 23-31 [facility] Comment on above: Performed By: #### L [id number] ####Maint Mechanic: VIVIAN PANTOJA ([phone])[facility])[address] [place] [address] Creatinine [Mass/Vol] 0.69 mg/dL Normal 0.57-1.11 [facility] Comment on above: Performed By: #### L [id number] ####Maint Mechanic: VIVIAN PANTOJA ([phone])[facility])[address] [place] [address] GLOMERULAR FILTRATION RATE ML/MIN/1.73 SQ M.PREDICTED >90.0 Normal >60.0 [facility] Comment on above: Result Comment: Calc ulation based on the Chronic Kidney Disease Epidemiology Collaboration (CKD-EPI) equation refit without adjustment for race Performed By: #### L [id number] ####Maint Mechanic: VIVIAN PANTOJA ([phone])[facility] ([facility])[address] [place] [address] Glucose [Mass/Vol] 108 mg/dL Normal 82-115 [facility] Comment on above: Performed By: #### L AB15 ####Maint Mechanic: VIVIAN PANTOJA ([phone])[facility])[address] [place] [address] Potassium [Moles/Vol] 4.2 mmol/L Normal 3.5-5.1 [facility] Comment on above: Result Comment: [facility] potassium values may be up to 0.5 mmol/L lower than serum values. Performed By: #### L AB15 ####Maint Mechanic: VIVIAN PANTOJA ([phone])[facility] ([facility])[address] [place] [address] Sodium [Moles/Vol] 146 mmol/L High 136-145 [facility] Comment on above: Performed By: #### L AB15 ####Maint Mechanic: VIVIAN PANTOJA ([phone])[facility] ([facility])[address] [place] [address] Urea nitrogen [Mass/Vol] 13 mg/dL Normal 9-23 [facility] Comment on above: Performed By: #### L [id number] ####Maint Mechanic: VIVIAN PANTOJA ([phone])[facility])[address] [place] [address] BLOOD GAS ARTERIALon 025 Base excess Calc (Bld) [Moles/Vol] -1.0000 mmol/L Normal -3.0-3.0 [facility] Comment on above: Performed By: #### L [id number] ####Maint Mechanic: VIVIAN PANTOJA ([phone])[facility])[address] [place] [address] CO2 [Moles/Vol] 30.3 mmol/L High 23.0-27.0 [facility] Comment on above: Performed By: #### L [id number] ####Maint Mechanic: VIVIAN PANTOJA ([phone])[facility] ([facility])[address] [place] [address] HCO3 (Bld) [Moles/Vol] 28.1 mmol/L High 21.0-25.0 [facility] Comment on above: Performed By: #### L [id number] ####Maint Mechanic: VIVIAN PANTOJA ([phone])[facility] ([facility])[address] [place] [address] Hemoglobin (Bld) [Mass/Vol] 11.4 g/dL Normal Screen only [facility] Comment on above: Performed By: #### L [id number] ####Maint Mechanic: VIVIAN PANTOJA ([phone])[facility])[address] [place] [address] OXYGEN SATURATION (%) IN ARTERIAL BLOOD 95.8 % Normal 95.0-100.0 [facility] Comment on above: Performed By: #### L [id number] ####Maint Mechanic: VIVIAN PANTOJA ([phone])[facility] ([facility])[address] [place] [address] PCO2 ARTERIAL 71.3 mm Hg High >35.0-<45.0 [facility] Comment on above: Performed By: #### L [id number] ####Maint Mechanic: VIVIAN PANTOJA ([phone])[facility])[address] [place] [address] PH ARTERIAL 7.213 Low 7.350-7.450 [facility] Comment on above: Performed By: #### L [id number] ####Maint Mechanic: VIVIAN PANTOJA ([phone])[facility] ([facility])[address] [place] [address] PO2 ARTERIAL 100.6 mm Hg High 80.0-100.0 [facility] Comment on above: Performed By: #### L [id number] ####Maint Mechanic: VIVIAN PANTOJA ([phone])[facility])[address] [place] [address] SOURCE OF OXYGEN Nasal cannula Normal [facility] Comment on above: Result Comment: 4 Performed By: #### L [id number] ####Maint Mechanic: VIVIAN PANTOJA ([phone])[facility])[address] [place] [address] BLOOD GAS, VENOUSon 05-02-19 25 Base excess Calc (BldV) [Moles/Vol] -2.0000 mmol/L Normal -3.0-3.0 [facility] Comment on above: Performed By: #### L AB79 ####Maint Mechanic: VIVIAN PANTOJA ([phone])[facility] ([facility])[address] [place] [address] CO2 [Moles/Vol] 29.0 mmol/L High 24.0-28.0 [facility] Comment on above: Performed By: #### L AB79 ####Maint Mechanic: VIVIAN PANTOJA ([phone])[facility])[address] [place] [address] HCO3 (Bld) [Moles/Vol] 26.8 mmol/L Normal 23.0-27.0 [facility] Comment on above: Performed By: #### L AB79 ####Maint Mechanic: VIVIAN PANTOJA ([phone])[facility])[address] [place] [address] Hemoglobin (Bld) [Mass/Vol] 9.4 g/dL Normal Screen only [facility] Comment on above: Performed By: #### L AB79 ####Maint Mechanic: VIVIAN PANTOJA ([phone])[facility])[address] [place] [address] OXYGEN (MM HG) IN VENOUS BLOOD 42.8 mm Hg Normal [facility] Comment on above: Performed By: #### L AB79 ####Maint Mechanic: VIVIAN PANTOJA ([phone])[facility])[address] [place] [address] OXYGEN SATURATION (%) IN VENOUS BLOOD 66.4 % Normal [facility] Comment on above: Performed By: #### L AB79 ####Maint Mechanic: VIVIAN PANTOJA ([phone])[facility] ([facility])[address] [place] [address] PCO2, CHA 70.8 mm Hg High 40.0-55.0 [facility] Comment on above: Performed By: #### L AB79 ####Maint Mechanic: VIVIAN PANTOJA ([phone])[facility] ([facility])[address] [place] [address] PH VENOUS 7.196 Low 7.330-7.430 [facility] Comment on above: Performed By: #### L AB79 ####Maint Mechanic: VIVIAN PANTOJA ([phone])[facility] ([facility])[address] [place] [address] SOURCE OF OXYGEN Normal [facility] Comment on above: Result Comment: 80%O RDER COMMENTS:Assessment of oxygenation is best done with an arterial blood gas determination. Reference ranges for pO2, bicarbonate, and base excess are for mixed venous blood. Specimens drawn from a peripheral vein will often have higher values. Performed By: #### L AB79 ####Maint Mechanic: VIVIAN PANTOJA ([phone])[facility] ([facility])[address] [place] [address] Basic metabolic 1998 panelon 05-02-2024 Anion gap [Moles/Vol] 8 mmol/L 3 - 13 mmol/L [facility] Calcium [Mass/Vol] 8.7 mg/dL Low 8.8 - 10. 0 mg/dL [facility] Chloride [Moles/Vol] 113 mmol/L High 98 - 10 7 mmol/L [facility] CO2 [Moles/Vol] 25 mmol/L 23 - 31 mmol/L [facility] Creatinine [Mass/Vol] 0.69 mg/dL 0.57 - 1.11 mg/dL [facility] GFR/1.73 sq M.predicted (S/P/Bld) [Vol rate/Area] - PINF [facility] Glucose [Mass/Vol] 108 mg/dL 82 - 115 mg/dL [facility] Interpretation and review of laboratory results Abnormal [facility] Potassium [Moles/Vol] 4.2 mmol/L 3.5 - 5.1 mmol/L [facility] Sodium [Moles/Vol] 146 mmol/L High 136 - 145 mmol/L [facility] Urea nitrogen [Mass/Vol] 13 mg/dL 9 - 23 mg/dL [facility] CBC (HEMOGRAM)on 05-02-2024 Erythrocyte distribution width (RBC) [Ratio] 15.3 % High 11.5-15.0 [facility] Comment on above: Performed By: #### L [id number] ####Maint Mechanic: VIVIAN PANTOJA ([phone])[facility])[address] [place] [address] Hematocrit (Bld) [Volume fraction] 31.1 % Low 35.0-47.0 [facility] Comment on above: Performed By: #### L [id number] ####Maint Mechanic: VIVIAN PANTOJA ([phone])[facility])[address] [place] [address] Hemoglobin (Bld) [Mass/Vol] 9.4 g/dL Low 11.7-16.0 [facility] Comment on above: Performed By: #### L [id number] ####Maint Mechanic: VIVIAN PANTOJA ([phone])[place] [address] [place] IPF 15 Normal [facility] Comment on above: Performed By: #### L [id number] ####Maint Mechanic: VIVIAN PANTOJA ([phone])[address] MCH (RBC) [Entitic mass] 27.8 pg Normal 26.0-34.0 [facility] Comment on above: Performed By: #### L [id number] ####Maint Mechanic: VIVIAN PANTOJA ([phone])[facility])[address] [place] [address] MCHC 30.2 % Low 30.5-36.0 [facility] Comment on above: Performed By: #### L [id number] ####Maint Mechanic: VIVIAN PANTOJA ([phone])[facility])[address] [place] [address] [place] MCV (RBC) [Entitic vol] 92.0 fL Normal 77.0-99.0 [facility] Comment on above: Performed By: #### L [id number] ####Maint Mechanic: VIVIAN PANTOJA ([phone])[facility])[address] [place] [address] Platelet mean volume (Bld) [Entitic vol] 13.4 fL High 9.0-12.7 [facility] Comment on above: Performed By: #### L [id number] ####Maint Mechanic: VIVIAN PANTOJA ([phone])[facility] ([facility])[address] [place] [address] [place] Platelets (Bld) [#/Vol] 43 10*3/uL Low 140-440 [facility] Comment on above: Performed By: #### L [id number] ####Maint Mechanic: VIVIAN PANTOJA ([phone])[facility] ([facility])[address] [place] [address] RBC (Bld) [#/Vol] 3.38 10*6/uL Low 3.80-5.20 [facility] Comment on above: Performed By: #### L [id number] ####Maint Mechanic: VIVIAN PANTOJA ([phone])[facility] ([facility])[address] [place] [address] WBC (Bld) [#/Vol] 6.5 10*3/uL Normal 3.6-10.7 [facility] Comment on above: Performed By: #### L [id number] ####Maint Mechanic: VIVIAN PANTOJA ([phone])[facility] ([facility])[address] [place] [address] CBC panel Auto (Bld)on 05-02 Erythrocyte distribution width (RBC) [Ratio] 15.3 % High 11.5 - 15.0 % [facility] Hematocrit (Bld) [Volume fraction] 31.1 % Low 35.0 - 47.0 % [facility] Hemoglobin (Bld) [Mass/Vol] 9.4 g/dL Low 11.7 - 16.0 g/dL [facility] Interpretation and review of laboratory results Abnormal [facility] IPF 15 [facility] MCH (RBC) [Entitic mass] 27.8 pg 26.0 - 34.0 pg [facility] MCHC (RBC) [Mass/Vol] 30.2 % Low 30.5 - 36.0 % [facility] MCV (RBC) [Entitic vol] 92 fL 77.0 - 99.0 fL [facility] Platelet mean volume (Bld) [Entitic vol] 13.4 fL High 9.0 - 12.7 fL [facility] Platelets (Bld) [#/Vol] 43 10*3/uL Low 140 - 440 10*3/uL [facility] RBC (Bld) [#/Vol] 3.38 10*6/uL Low 3.80 - 5.2 0 10*6/uL [facility] WBC (Bld) [#/Vol] 6.5 10*3/uL 3.6 - 10.7 10*3/uL [facility] Consulton 05-02-2024 Consult Normal [facility] Consult Normal [facility] D-DIMER,QUANTITATIVEon 05-02 D-DIMER, INNOVANCE 0.22 mg/L Normal <0.50 [facility] Comment on above: Result Comment: LEOBARDO Gill COMMENTS:[employer] D-Dimer values of <0.50 mg/L FEU can be used in combination with a pre-test probability model (e.g. Well's) to exclude pulmonary embolism (PE) disease, as well as an aid in the diagnosis of deep vein thrombosis (DVT). Performed By: #### L [id number] ####Maint Mechanic: VIVIAN PANTOJA ([phone])[facility] ([facility])[address] [place] [address] FIBRINOGENon 05-02-2024 FIBRINOGEN 208 mg/dL Normal 200-400 [facility] Comment on above: Performed By: #### L [id number], [id number] ####Maint Mechanic: VIVIAN PANTOJA ([phone])[facility] ([facility])[address] [place] [address] Fibrin D-dimer FEU (PPP) [Ma ss/Vol]on 05-02-2024 Interpretation and review of laboratory results Normal [facility] Fibrinogen Coag (PPP) [Mass/ Vol]on 05-02-2024 Interpretation and review of laboratory results Normal [facility] - Chemistry and C hemistry - challengeOrdered By: Bisi Gimenez on 05-02-2024 Base excess Calc (BldV) [Moles/Vol] -2 mmol/L -3.0 - 3.0 mmol/L [facility] CO2 (BldV) [Partial pressure] 70.8 mm[Hg] High [facility] CO2 [Moles/Vol] 29 mmol/L High 24.0 - 28.0 mmol/L [facility] HCO3 (Bld) [Moles/Vol] 26.8 mmol/L 23.0 - 27.0 mmol/L [facility] Oxygen (BldV) [Partial pressure] 42.8 mm[Hg] mm Hg [facility] pH (BldV) 7.196 [pH] Low 7.330 - 7.430 [facility] - Chemistry and C hemistry - challengeOrdered By: Vianca Flowers on 05-02-2024 Base excess Calc (Bld) [Moles/Vol] -1 mmol/L -3.0 - 3.0 mmol/L [facility] CO2 (Bld) [Partial pressure] 71.3 mm[Hg] High - PINF [facility] CO2 [Moles/Vol] 30.3 mmol/L High 23.0 - 27.0 mmol/L [facility] HCO3 (Bld) [Moles/Vol] 28.1 mmol/L High 21.0 - 25.0 mmol/L [facility] Oxygen (Bld) [Partial pressure] 100.6 mm[Hg] High [facility] pH (Bld) 7.213 [pH] Low 7.350 - 7.450 [facility] - Coagulationon 0 05-02-2024 Fibrin D-dimer FEU (PPP) [Mass/Vol] 0.22 mg/L NINF - 0.50 mg/L [facility] aPTT Coag (PPP) [Time] 28 s 20.0 - 30.5 s [facility] Fibrinogen Coag (PPP) [Mass/Vol] 208 mg/dL 200 - 400 mg/dL [facility] INR Coag (PPP) [Relative time] 1.3 {INR} High 0.9 - 1.1 [facility] PT Coag (Bld) [Time] 14 s High 9.0 - 12.0 s [facility] - Hematology and Cell countsOrdered By: Bisi Gimenez on 05-02-2024 Hemoglobin (Bld) [Mass/Vol] 9.4 g/dL Screen only [facility] - Hematology and Cell countsOrdered By: Vianca Flowers on 05-02-2024 Hemoglobin (Bld) [Mass/Vol] 11.4 g/dL Screen only [facility] - Microbiology an d Antimicrobial susceptibilityon 05-02-2024 FLUAV RNA STEPHANIE+probe Ql (Resp) Detected Abnormal Not Detected [facility] FLUBV RNA STEPHANIE+probe Ql (Resp) Not detected Not Detected [facility] RSV RNA STEPHANIE+probe Ql (Resp) Not detected Not Detected [facility] SARS-CoV-2 (COVID-19) RNA STEPHANIE+probe Ql (Resp) Not detected Not Detected [facility] No Panel InformationOrdered By: Bisi Gimenez on 05-02-2024 Interpretation and review of laboratory results Abnormal [facility] Source Of Oxygen [facility] No Panel Informationon 05-02 Interpretation and review of laboratory results Abnormal [facility] No Panel InformationOrdered By: Vianca Flowers on 05-02-2024 Interpretation and review of laboratory results Abnormal [facility] Source Of Oxygen Nasal cannula [facility] Nursing Noteon 05-02-2024 Nursing Note Called report to [facility] T3 nurse Carly. Normal [facility] Nursing Note Normal [facility] PROTIME AND APTTon aPTT Coag (Bld) [Time] 28.0 s Normal 20.0-30.5 [facility] Comment on above: Performed By: #### L [id number], [id number] ####Maint Mechanic: VIVIAN PANTOJA ([phone])[address] INR Coag (PPP) [Relative time] 1.3 {INR} High 0.9-1.1 [facility] Comment on above: Result Comment: Hong [...] Myocardial Infarction Performed By: #### L [id number], [id number] ####Maint Mechanic: VIVIAN PANTOJA ([phone])[facility])[address] [place] [address] PT Coag (PPP) [Time] 14.0 s High 9.0-12.0 [facility] Comment on above: Performed By: #### L [id number], [id number] ####Maint Mechanic: VIVIAN PANTOJA ([phone])[facility])[address] [place] [address] Progress Noteon 05-02-2024 Progress Note Normal [facility] Progress Note Normal [facility] Progress Note Normal [facility] RESPIRATORY PATHOGENS PANEL BY PCRon 05-02-2024 RESPIRATORY PATHOGENS PANEL BY PCR Normal [facility] Comment on above: Performed By: #### L [id number], [id number] ####Maint Mechanic: VIVIAN PANTOJA ([phone])[address] SARS-COV-2, FLU A/B, AND RSV COMBOon 05-02-2024 SARS-CoV-2 (COVID-19) RNA STEPHANIE+probe Ql (Unsp spec) Normal [facility] Comment on above: Performed By: #### L [id number], [id number] ####Maint Mechanic: VIVIAN PANTOJA ([phone])[address] SARS-CoV-2, Flu A/B, and RSV Comboon 05-02-2024 Interpretation and review of laboratory results Abnormal [facility] Vital signsOrdered By: Anais Gimenez on 05-02-2024 Oxygen saturation in Venous blood 66.4 % [facility] XR CHEST 1 VIEWon 02-18-2025 XR CHEST 1 VIEW Normal [facility] XR Chest Single viewon 05-02 [facility] Radiology Study observation (narrative) [facility] XR Chest Single viewOrdered By: Brayan Montoya on 05-02-2024 [facility] Work Phone: 30on 05-01-2024 30 Normal [facility] 30 Normal [facility] [id number] 05-01-2024 [id number] Normal [facility] [id number] 05-01-2024 [id number] Normal [facility] 36on 05-01-2024 36 Currently admitted. Normal [facility] BASIC METABOLIC PANELon 04-15 Anion gap [Moles/Vol] 7 mmol/L Normal 3-13 [facility] Comment on above: Performed By: #### L AB15, LAB20, [id number] ####Maint Mechanic: VIVIAN PANTOJA ([phone])[facility] ([facility])[address] [place] [address] Calcium [Mass/Vol] 8.9 mg/dL Normal 8.8-10.0 [facility] Comment on above: Performed By: #### L AB15, LAB20, [id number] ####Maint Mechanic: VIVIAN PANTOJA ([phone])[facility] ([facility])[address] [place] [address] [place] Chloride [Moles/Vol] 113 mmol/L High 98-107 [facility] Comment on above: Performed By: #### L AB15, LAB20, [id number] ####Maint Mechanic: VIVIAN PANTOJA ([phone])[facility] ([facility])[address] [place] [address] [place] CO2 [Moles/Vol] 23 mmol/L Normal 23-31 [facility] Comment on above: Performed By: #### L AB15, LAB20, [id number] ####Maint Mechanic: VIVIAN PANTOJA ([phone])[facility] ([facility])[address] [place] [address] [place] Creatinine [Mass/Vol] 0.76 mg/dL Normal 0.57-1.11 [facility] Comment on above: Performed By: #### L AB15, LAB20, [id number] ####Maint Mechanic: VIVIAN PANTOJA ([phone])[facility])[address] [place] [address] GLOMERULAR FILTRATION RATE ML/MIN/1.73 SQ M.PREDICTED 82.9 mL/min/1.73m*2 Normal >60.0 [facility] Comment on above: Result Comment: Calc ulation based on the Chronic Kidney Disease Epidemiology Collaboration (CKD-EPI) equation refit without adjustment for race Performed By: #### L AB15, LAB20, [id number] ####Maint Mechanic: VIVIAN PANTOJA ([phone])[facility])[address] [place] [address] Glucose [Mass/Vol] 102 mg/dL Normal 82-115 [facility] Comment on above: Performed By: #### Manpreet AB15, LAB20, [id number] ####Maint Mechanic: VIVIAN PANTOJA ([phone])[address] Potassium [Moles/Vol] 4.1 mmol/L Normal 3.5-5.1 [facility] Comment on above: Result Comment: [facility] potassium values may be up to 0.5 mmol/L lower than serum values. Performed By: #### Manpreet AB15, LAB20, [id number] ####Maint Mechanic: VIVIAN PANTOJA ([phone])[place] [address] [place] Sodium [Moles/Vol] 143 mmol/L Normal 136-145 [facility] Comment on above: Performed By: #### L AB15, LAB20, [id number] ####Maint Mechanic: VIVIAN PANTOJA ([phone])[place] [address] [place] Urea nitrogen [Mass/Vol] 14 mg/dL Normal 9-23 [facility] Comment on above: Performed By: #### L AB15, LAB20, [id number] ####Maint Mechanic: VIVIAN PANTOJA ([phone])[facility])[address] [place] [address] Basic metabolic 1998 panelon 05-01-2024 Anion gap [Moles/Vol] 7 mmol/L 3 - 13 mmol/L [facility] Calcium [Mass/Vol] 8.9 mg/dL 8.8 - 10. 0 mg/dL [facility] Chloride [Moles/Vol] 113 mmol/L High 98 - 10 7 mmol/L [facility] CO2 [Moles/Vol] 23 mmol/L 23 - 31 mmol/L [facility] Creatinine [Mass/Vol] 0.76 mg/dL 0.57 - 1.11 mg/dL [facility] GFR/1.73 sq M.predicted (S/P/Bld) [Vol rate/Area] 82.9 mL/min - PINF [facility] Glucose [Mass/Vol] 102 mg/dL 82 - 115 mg/dL [facility] Interpretation and review of laboratory results Abnormal [facility] Potassium [Moles/Vol] 4.1 mmol/L 3.5 - 5.1 mmol/L [facility] Sodium [Moles/Vol] 143 mmol/L 136 - 145 mmol/L [facility] Urea nitrogen [Mass/Vol] 14 mg/dL 9 - 23 mg/dL [facility] CBC (HEMOGRAM)on 05-01-2024 Erythrocyte distribution width (RBC) [Ratio] 14.9 % Normal 11.5-15.0 [facility] Comment on above: Performed By: #### L [id number] ####Maint Mechanic: VIVIAN PANTOJA ([phone])[facility] ([facility])[address] [place] [address] Hematocrit (Bld) [Volume fraction] 34.3 % Low 35.0-47.0 [facility] Comment on above: Performed By: #### L [id number] ####Maint Mechanic: VIVIAN PANTOJA ([phone])[facility])[address] [place] [address] Hemoglobin (Bld) [Mass/Vol] 10.4 g/dL Low 11.7-16.0 [facility] Comment on above: Performed By: #### L [id number] ####Maint Mechanic: VIVIAN PANTOJA ([phone])[facility] ([facility])[address] [place] [address] IPF 13 Normal [facility] Comment on above: Performed By: #### L [id number] ####Maint Mechanic: VIVIAN PANTOJA ([phone])[facility] ([facility])[address] [place] [address] MCH (RBC) [Entitic mass] 28.0 pg Normal 26.0-34.0 [facility] Comment on above: Performed By: #### L [id number] ####Maint Mechanic: VIVIAN PANTOJA ([phone])[facility])[address] [place] [address] MCHC 30.3 % Low 30.5-36.0 [facility] Comment on above: Performed By: #### L [id number] ####Maint Mechanic: VIVIAN PANTOJA ([phone])[facility] ([facility])[address] [place] [address] MCV (RBC) [Entitic vol] 92.2 fL Normal 77.0-99.0 [facility] Comment on above: Performed By: #### L [id number] ####Maint Mechanic: VIVIAN PANTOJA ([phone])[facility] ([facility])[address] [place] [address] Platelet mean volume (Bld) [Entitic vol] 13.9 fL High 9.0-12.7 [facility] Comment on above: Performed By: #### L [id number] ####Maint Mechanic: VIVIAN PANTOJA ([phone])[facility] ([facility])[address] [place] [address] Platelets (Bld) [#/Vol] 59 10*3/uL Low 140-440 [facility] Comment on above: Performed By: #### L [id number] ####Maint Mechanic: VIVIAN PANTOJA ([phone])[facility] ([facility])[address] [place] [address] RBC (Bld) [#/Vol] 3.72 10*6/uL Low 3.80-5.20 [facility] Comment on above: Performed By: #### L [id number] ####Maint Mechanic: VIVIAN PANTOJA ([phone])[facility] ([facility])[address] [place] [address] WBC (Bld) [#/Vol] 6.1 10*3/uL Normal 3.6-10.7 [facility] Comment on above: Performed By: #### L [id number] ####Maint Mechanic: VIVIAN PANTOJA ([phone])[facility] ([facility])[address] [place] [address] CBC panel Auto (Bld)Ordered By: Hugh Dominguez on 05-01-2024 Erythrocyte distribution width (RBC) [Ratio] 14.9 % 11.5 - 15.0 % [facility] Hematocrit (Bld) [Volume fraction] 34.3 % Low 35.0 - 47.0 % [facility] Hemoglobin (Bld) [Mass/Vol] 10.4 g/dL Low 11.7 - 16.0 g/dL [facility] Interpretation and review of laboratory results Abnormal [facility] IPF 13 [facility] MCH (RBC) [Entitic mass] 28 pg 26.0 - 34.0 pg [facility] MCHC (RBC) [Mass/Vol] 30.3 % Low 30.5 - 36.0 % [facility] MCV (RBC) [Entitic vol] 92.2 fL 77.0 - 99.0 fL [facility] Platelet mean volume (Bld) [Entitic vol] 13.9 fL High 9.0 - 12.7 fL [facility] Platelets (Bld) [#/Vol] 59 10*3/uL Low 140 - 440 10*3/uL [facility] RBC (Bld) [#/Vol] 3.72 10*6/uL Low 3.80 - 5.2 0 10*6/uL [facility] WBC (Bld) [#/Vol] 6.1 10*3/uL 3.6 - 10.7 10*3/uL [facility] Catecholamines,Frac Urineon 05-01-2024 Catecholamines Willis (U) [Interp] See Note [facility] Comment on above: TEST INFORMATION: Ca techolamines [...] reference intervals for this test in the [facility] Test Directory ([employer]). This test was developed and its performance characteristics determined by [facility]. It has not been cleared or approved by the [place] Food and Drug Administration. This test was performed in a CLIA certified laboratory and is intended for clinical purposes. Collection duration (Unsp spec) 24 hr [facility] Comment on above: Per 24h calculations are provided to aid interpretation for collections with a duration of 24 hours and an average daily urine volume. For specimens with notable deviations in collection time or volume, ratios of analytes to a corresponding urine creatinine concentration may assist in result interpretation. Creatinine (24H U) [Mass/Time] 564 mg/d 500 - 1400 mg/d [facility] Comment on above: Performed By: [facility] [address] [place] [address] Commercial Account Manager: Miranda Droman MD, PhD [facility] Number: [id number] Creatinine (U) [Mass/Vol] 182 mg/dL [facility] DOPamine (24H U) [Mass/Time] 100 ug/d 71 - 485 ug/d [facility] Comment on above: REFERENCE INTERVAL: Dopamine, Urine - ug/d Access complete set of age- and/or gender-specific reference intervals for this test in the [facility] Test Directory ([employer]). DOPamine (U) [Mass/Vol] 322 ug/L [facility] DOPamine/Creatinine (U) [Mass ratio] 177 [facility] EPINEPHrine (24H U) [Mass/Time] 1 ug/d 1 - 14 ug/d [facility] Comment on above: REFERENCE INTERVAL: Epinephrine, Urine - ug/d Access complete set of age- and/or gender-specific reference intervals for this test in the [facility] Test Directory ([employer]). EPINEPHrine (U) [Mass/Vol] 2 ug/L [facility] EPINEPHrine/Creatinine (U) [Mass ratio] 1 [facility] Norepinephrine (24H U) [Mass/Time] 15 ug/d 14 - 120 ug/d [facility] Comment on above: REFERENCE INTERVAL: Norepinephrine, Urine - ug/d Access complete set of age- and/or gender-specific reference intervals for this test in the [facility] Laboratory Test Directory ([employer]). Norepinephrine (U) [Mass/Vol] 49 ug/L [facility] Norepinephrine/Creatin ine (U) [Mass ratio] 27 [facility] Specimen volume Unsp time (U) 310 mL [facility] HEPATIC FUNCTION PANELon Albumin [Mass/Vol] 3.4 g/dL Normal 3.4-4.8 [facility] Comment on above: Performed By: #### L AB15, LAB20, [id number] ####Maint Mechanic: VIVIAN PANTOJA ([id number])[facility])[address] [place] [address] ALP [Catalytic activity/Vol] 60 U/L Normal 40-150 [facility] [facility] Comment on above: Performed By: #### L AB15, LAB20, [id number] ####Maint Mechanic: VIVIAN PANTOJA ([phone])[facility])[address] [place] [address] ALT [Catalytic activity/Vol] 8 U/L Normal <30 [facility] Comment on above: Performed By: #### L AB15, LAB20, [id number] ####Maint Mechanic: VIVIAN PANTOJA ([phone])[facility])[address] [place] [address] AST [Catalytic activity/Vol] 20 U/L Normal <34 [facility] Comment on above: Performed By: #### L AB15, LAB20, [id number] ####Maint Mechanic: VIVIAN PANTOJA ([phone])[facility])[address] [place] [address] Bilirubin [Mass/Vol] 0.9 mg/dL Normal <1.2 [facility] Comment on above: Performed By: #### L AB15, LAB20, [id number] ####Maint Mechanic: VIVIAN PANTOJA ([phone])[facility] ([facility])[address] [place] [address] Bilirubin.indirect [Mass/Vol] 0.2 mg/dL Normal <0.5 [facility] Comment on above: Performed By: #### L AB15, LAB20, [id number] ####Maint Mechanic: VIVIAN PANTOJA ([phone])[facility])[address] [place] [address] Protein [Mass/Vol] 5.6 g/dL Low 6.4-8.3 [facility] Comment on above: Result Comment: Seru m protein values are higher than plasma values. Samples from recumbent persons are lower by up to 0.5 g/dL as compared to ambulatory persons. After 60 years values are lower by up to 0.2 g/dL. Performed By: #### L AB15, LAB20, [id number] ####Maint Mechanic: VIVIAN PANTOJA ([phone])[facility] ([facility])[address] [place] [address] Hepatic function 2000 panelo n 05-01-2024 Albumin [Mass/Vol] 3.4 g/dL 3.4 - 4.8 g/dL [facility] ALP [Catalytic activity/Vol] 60 U/L 40 - 150 U/L [facility] ALT [Catalytic activity/Vol] [facility] AST [Catalytic activity/Vol] 20 U/L [facility] U/L [facility] Bilirubin [Mass/Vol] 0.9 mg/dL [facility] 1.[facility] mg/dL [facility] Bilirubin.conjugated [Mass/Vol] 0.2 mg/dL [facility] 0.[facility] mg/dL [facility] Interpretation and review of laboratory results Abnormal [facility] Protein [Mass/Vol] 5.6 g/dL Low 6.4 - 8.3 g/dL [facility] NT PRO BNPon 05-01-2024 Natriuretic peptide B (Bld) [Mass/Vol] 6313 pg/mL High <125 [facility] Comment on above: Performed By: #### L AB15, LAB20, [id number] ####Maint Mechanic: VIVIAN PANTOJA ([phone])[facility] ([facility])[address] [place] [address] [place] Natriuretic peptide B [Mass/ Vol]on 05-01-2024 Interpretation and review of laboratory results Abnormal [facility] Natriuretic peptide B (Bld) [Mass/Vol] 6313 pg/mL High NINF - 125 pg/mL [facility] Progress Noteon 05-01-2024 Progress Note Normal [facility] Progress Note Normal [facility] Progress Note Normal [facility] 30on 04-30-2024 30 Normal [facility] 30 Normal [facility] 30 Normal [facility] [id number] 04-30-2024 [id number] Normal [facility] [id number] Normal [facility] BASIC METABOLIC PANELon 04-15 Anion gap [Moles/Vol] 6 mmol/L Normal 3-13 [facility] Comment on above: Performed By: #### L AB106, [id number], LAB15 ####Maint Mechanic: VIVIAN PANTOJA ([phone])[facility] ([facility])[address] [place] [address] [place] Calcium [Mass/Vol] 8.6 mg/dL Low 8.8-10.0 [facility] Comment on above: Performed By: #### L AB106, [id number], LAB15 ####Maint Mechanic: VIVIAN PANTOJA ([phone])[facility] ([facility])[address] [place] [address] [place] Chloride [Moles/Vol] 115 mmol/L High 98-107 [facility] Comment on above: Performed By: #### L AB106, [id number], LAB15 ####Maint Mechanic: VIVIAN PANTOJA ([phone])[facility] ([facility])[address] [place] [address] [place] CO2 [Moles/Vol] 21 mmol/L Low 23-31 [facility] Comment on above: Performed By: #### L AB106, [id number], LAB15 ####Maint Mechanic: VIVIAN PANTOJA ([phone])[facility] ([facility])[address] [place] [address] [place] Creatinine [Mass/Vol] 1.12 mg/dL High 0.57-1.11 [facility] Comment on above: Performed By: #### L AB106, [id number], LAB15 ####Maint Mechanic: VIVIAN PANTOJA ([phone])[facility])[address] [place] [address] GLOMERULAR FILTRATION RATE ML/MIN/1.73 SQ M.PREDICTED 52.0 mL/min/1.73m*2 Low >60.0 [facility] Comment on above: Result Comment: Calc ulation based on the Chronic Kidney Disease Epidemiology Collaboration (CKD-EPI) equation refit without adjustment for race Performed By: #### L AB106, [id number], LAB15 ####Maint Mechanic: VIVIAN PANTOJA ([phone])[facility])[address] [place] [address] Glucose [Mass/Vol] 113 mg/dL Normal 82-115 [facility] Comment on above: Performed By: #### Manpreet AB106, [id number], LAB15 ####Maint Mechanic: VIVIAN PANTOJA ([phone])[facility])[address] [place] [address] Potassium [Moles/Vol] 3.6 mmol/L Normal 3.5-5.1 [facility] Comment on above: Result Comment: [facility] potassium values may be up to 0.5 mmol/L lower than serum values. Performed By: #### L AB106, [id number], LAB15 ####Maint Mechanic: VIVIAN PANTOJA ([phone])[facility])[address] [place] [address] [place] Sodium [Moles/Vol] 142 mmol/L Normal 136-145 [facility] Comment on above: Performed By: #### L AB106, [id number], LAB15 ####Maint Mechanic: VIVIAN PANTOJA ([phone])[address] Urea nitrogen [Mass/Vol] 20 mg/dL Normal 9-23 [facility] Comment on above: Performed By: #### L AB106, [id number], LAB15 ####Maint Mechanic: VIVIAN PANTOJA ([phone])[facility])[address] [place] [address] Basic metabolic 1998 panelon 04-30-2024 Anion gap [Moles/Vol] 6 mmol/L 3 - 13 mmol/L [facility] Calcium [Mass/Vol] 8.6 mg/dL Low 8.8 - 10. 0 mg/dL [facility] Chloride [Moles/Vol] 115 mmol/L High 98 - 10 7 mmol/L [facility] CO2 [Moles/Vol] 21 mmol/L Low 23 - 31 mmol/L [facility] Creatinine [Mass/Vol] 1.12 mg/dL High 0.57 - 1.11 mg/dL [facility] GFR/1.73 sq M.predicted (S/P/Bld) [Vol rate/Area] 52 mL/min Low - PINF [facility] Glucose [Mass/Vol] 113 mg/dL 82 - 115 mg/dL [facility] Potassium [Moles/Vol] 3.6 mmol/L 3.5 - 5.1 mmol/L [facility] Sodium [Moles/Vol] 142 mmol/L 136 - 145 mmol/L [facility] Urea nitrogen [Mass/Vol] 20 mg/dL 9 - 23 mg/dL [facility] CBC (HEMOGRAM)on 04-30-2024 Erythrocyte distribution width (RBC) [Ratio] 15.2 % High 11.5-15.0 [facility] Comment on above: Performed By: #### L AB294 ####Maint Mechanic: VIVIAN PANTOJA ([phone])[facility] ([facility])[address] [place] [address] Hematocrit (Bld) [Volume fraction] 31.4 % Low 35.0-47.0 [facility] Comment on above: Performed By: #### L AB294 ####Maint Mechanic: VIVIAN PANTOJA ([phone])[facility])[address] [place] [address] Hemoglobin (Bld) [Mass/Vol] 9.7 g/dL Low 11.7-16.0 [facility] Comment on above: Performed By: #### L AB294 ####Maint Mechanic: VIVIAN PANTOJA ([phone])[facility] ([facility])[address] [place] [address] IPF 9 Normal [facility] Comment on above: Performed By: #### L AB294 ####Maint Mechanic: VIVIAN PANTOJA ([phone])[facility] ([facility])[address] [place] [address] MCH (RBC) [Entitic mass] 28.0 pg Normal 26.0-34.0 [facility] Comment on above: Performed By: #### L AB294 ####Maint Mechanic: VIVIAN PANTOJA ([phone])[facility])[address] [place] [address] MCHC 30.9 % Normal 30.5-36.0 [facility] Comment on above: Performed By: #### L AB294 ####Maint Mechanic: VIVIAN PANTOJA ([phone])[facility] ([facility])[address] [place] [address] MCV (RBC) [Entitic vol] 90.5 fL Normal 77.0-99.0 [facility] Comment on above: Performed By: #### L AB294 ####Maint Mechanic: VIVIAN PANTOJA ([phone])[facility] ([facility])[address] [place] [address] Platelet mean volume (Bld) [Entitic vol] 13.0 fL High 9.0-12.7 [facility] Comment on above: Performed By: #### L AB294 ####Maint Mechanic: VIVIAN PANTOJA ([phone])[facility] ([facility])[address] [place] [address] [place] Platelets (Bld) [#/Vol] 77 10*3/uL Low 140-440 [facility] Comment on above: Performed By: #### L AB294 ####Maint Mechanic: VIVIAN PANTOJA ([phone])[facility] ([facility])[address] [place] [address] RBC (Bld) [#/Vol] 3.47 10*6/uL Low 3.80-5.20 [facility] Comment on above: Performed By: #### L AB294 ####Maint Mechanic: VIVIAN PANTOJA ([phone])[facility] ([facility])[address] [place] [address] WBC (Bld) [#/Vol] 8.7 10*3/uL Normal 3.6-10.7 [facility] Comment on above: Performed By: #### L AB294 ####Maint Mechanic: VIVIAN PANTOJA ([phone])[facility] ([facility])[address] [place] [address] CBC panel Auto (Bld)on 04-30 Erythrocyte distribution width (RBC) [Ratio] 15.2 % High 11.5 - 15.0 % [facility] Hematocrit (Bld) [Volume fraction] 31.4 % Low 35.0 - 47.0 % [facility] Hemoglobin (Bld) [Mass/Vol] 9.7 g/dL Low 11.7 - 16.0 g/dL [facility] Interpretation and review of laboratory results Abnormal [facility] IPF 9 [facility] MCH (RBC) [Entitic mass] 28 pg 26.0 - 34.0 pg [facility] MCHC (RBC) [Mass/Vol] 30.9 % 30.5 - 36.0 % [facility] MCV (RBC) [Entitic vol] 90.5 fL 77.0 - 99.0 fL [facility] Platelet mean volume (Bld) [Entitic vol] 13 fL High 9.0 - 12.7 fL [facility] Platelets (Bld) [#/Vol] 77 10*3/uL Low 140 - 440 10*3/uL [facility] RBC (Bld) [#/Vol] 3.47 10*6/uL Low 3.80 - 5.2 0 10*6/uL [facility] WBC (Bld) [#/Vol] 8.7 10*3/uL 3.6 - 10.7 10*3/uL [facility] ECG 12-LEADon 04-30-2024 ECG 12-LEAD IMPRESSION: Atrial fibrillation BASELINE ARTIFACT Low voltage, extremity and precordial leads Minimal ST depression, diffuse leads Electronically Signed On 04-30-2024 07:30:03 EST by Ovidio Bejarano Normal [facility] - Chemistry and C hemistry - challengeon 04-30-2024 Magnesium [Mass/Vol] 1.5 mg/dL Low 1.6 - 2 .6 mg/dL [facility] MAGNESIUMon 04-30-2024 Magnesium [Mass/Vol] 1.5 mg/dL Low 1.6-2.6 [facility] Comment on above: Result Comment: LEOBARDO R COMMENTS:Higher values can be expected in females during menses. Performed By: #### L AB106, [id number], LAB15 ####Maint Mechanic: VIVIAN PANTOJA ([phone])[facility] ([employer])[address] [place] [address] Magnesium [Mass/Vol]on 04-30 Interpretation and review of laboratory results Abnormal [facility] NT PRO BNPon 04-30-2024 Natriuretic peptide B (Bld) [Mass/Vol] 6267 pg/mL High <125 [facility] Comment on above: Performed By: #### L AB106, [id number], LAB15 ####Maint Mechanic: VIVIAN PANTOJA ([phone])[facility] ([employer])[address] [place] [address] Natriuretic peptide B [Mass/ Vol]on 04-30-2024 Natriuretic peptide B (Bld) [Mass/Vol] 6267 pg/mL High NINF - 125 pg/mL [facility] No Panel InformationOrdered By: Ovidio Bejarano on 04-30-2024 P [place]om[place] 0 degrees [employer] Phone: PA Interval 0 ms [employer] Phone: QRS [place] 91 degrees [employer] Phone: QRSD Interval 80 ms [employer]: QT Interval 309 ms [employer] [facility]: QTC Interval 328 ms [employer] Phone: T Wave [place] 213 degrees [employer] Phone: [employer] Phone: No Panel Informationon 04-30 CV EPIPHANY [facility] P [place] 0 degrees [facility] PA Interval 0 ms [facility] QRS [place] 78 degrees [facility] QRSD Interval 77 ms [facility] QT Interval 275 ms [facility] QTC Interval 321 ms [facility] T Wave [place] 252 degrees [facility] CV EPIPHANY [facility] Interpretation and review of laboratory results Abnormal [facility] Progress Noteon 04-30-2024 Progress Note Normal [facility] Progress Note Normal [facility] Progress Note Normal [facility] Progress Note Normal [facility] VMA, urineon 04-30-2024 Collection duration (Unsp spec) 24 hr [facility] Comment on above: Per 24h calculations are provided to aid interpretation for collections with a duration of 24 hours and an average daily urine volume. For specimens with notable deviations in collection time or volume, ratios of analytes to a corresponding urine creatinine concentration may assist in result interpretation. Creatinine (24H U) [Mass/Time] 564 mg/d 500 - 1400 mg/d [facility] Creatinine (U) [Mass/Vol] 182 mg/dL [facility] Specimen volume Unsp time (U) 310 mL [facility] Vanillylmandelate (24H U) [Mass/Time] 1.9 mg/d 0.0 - 7.0 mg/d [facility] Vanillylmandelate (U) [Mass/Vol] 6.2 mg/L [facility] Vanillylmandelate and Creatinine Willis (24H U) [Interp] See Note [facility] Comment on above: INTERPRETIVE INFORMA TION: Vanillylmandelic Acid (VMA), Urine Vanillylmandelic acid (VMA) results are expressed as a ratio to creatinine excretion (mg/g COCONUT COOKER). No reference interval is available for results [...] developed and its performance characteristics determined by [employer]. It has not been cleared or approved by the [place] Food and Drug Administration. This test was performed in a CLIA certified laboratory and is intended for clinical purposes. Vanillylmandelate/Crea tinine (24H U) [Mass ratio] 3 [facility] Comment on above: REFERENCE INTERVAL: VMA, Urine mg/g COCONUT COOKER Access complete set of age- and/or gender-specific reference intervals for this test in the [facility] Test Directory ([employer]). Performed By: [facility] [address] [place] [id number] Commercial Account Manager: Miranda Dorman MD, PhD CLIA Number: [id number] [facility] Vital signsOrdered By: Ovidio Bejarano on 04-30-2024 Heart rate 67 /min bpm [facility] Work Phone: Vital signson 04-30-2024 Heart rate 82 /min bpm [facility] 30on 04-29-2024 30 Normal [facility] 30 Normal [facility] 30 Normal [facility] 36on 04-29-2024 36 Pt known to Tony. Was scheduled for follow up but pt canceled. Hx of microhematuria and adrenal lesions. Needs follow up rescheduled. Thanks! Normal [facility] ALDOSTERONE (BKR QUEST)on [employer] ALDOSTERONE, LC/MS/MS <1 Normal [facility] Comment on above: Result Comment: Unab le to flag abnormal result(s), please refer to reference range(s) below:Adult Reference Ranges for Aldosterone, LC/MS/MS: Upright 8:00 - 10:00 am < or = 28 ng/dL Upright 4:00 - 6:00 pm < or = 21 ng/dL Supine 8:00 - 10:00 am 3 - 16 ng/dLThis test was developed and its analytical performancecharacteristics have been determined by [email or web address] [place], [place]. It hasnot been cleared or approved by the U.S. Food and DrugAdministration. This assay has been validated pursuantto the CLIA regulations and is used for clinicalpurposes.Test Performed by [employer] [place],[address] [place] [id number] Brown M.D., Ph.D., Director of [phone], CLIA [id number] Performed By: #### L AB557 ####[employer] (AMDBEAKER)[address] [place], [place] [facility] BASIC METABOLIC PANELon 04-15 Anion gap [Moles/Vol] 6 mmol/L Normal 3-13 [facility] Comment on above: Performed By: #### L AB15, [id number], LAB61 ####Maint Mechanic: VIVIAN PANTOJA ([phone])[facility] ([facility])[address] [place] [address] Calcium [Mass/Vol] 8.5 mg/dL Low 8.8-10.0 [facility] Comment on above: Performed By: #### Manpreet AB15, [id number], LAB61 ####Maint Mechanic: VIVIAN PANTOJA ([phone])[facility] ([facility])[address] [place] [address] Chloride [Moles/Vol] 116 mmol/L High 98-107 [facility] Comment on above: Performed By: #### Manpreet AB15, BSE587, LAB61 ####Maint Mechanic: VIVIAN PANTOJA ([phone])[facility] ([facility])[address] [place] [address] CO2 [Moles/Vol] 21 mmol/L Low 23-31 [facility] Comment on above: Performed By: #### Manpreet AB15, [id number], LAB61 ####Maint Mechanic: VIVIAN PANTOJA ([phone])[facility])[address] [place] [address] Creatinine [Mass/Vol] 1.51 mg/dL High 0.57-1.11 [facility] Comment on above: Performed By: #### L AB15, USH179, LAB61 ####Maint Mechanic: VIVIAN PANTOJA ([phone])[facility])[address] [place] [address] GLOMERULAR FILTRATION RATE ML/MIN/1.73 SQ M.PREDICTED 36.4 mL/min/1.73m*2 Low >60.0 [facility] Comment on above: Result Comment: Calc ulation based on the Chronic Kidney Disease Epidemiology Collaboration (CKD-EPI) equation refit without adjustment for race Performed By: #### L AB15, [id number], LAB61 ####Maint Mechanic: VIVIAN PANTOJA ([phone])[facility] ([facility])[address] [place] [address] Glucose [Mass/Vol] 81 mg/dL Low 82-115 [facility] Comment on above: Performed By: #### L AB15, [id number], LAB61 ####Maint Mechanic: VIVIAN PANTOJA ([phone])[facility])[address] [place] [address] Potassium [Moles/Vol] 3.8 mmol/L Normal 3.5-5.1 [facility] Comment on above: Result Comment: [facility] potassium values may be up to 0.5 mmol/L lower than serum values. Performed By: #### Manpreet COR[place], [id number], LAB61 ####Maint Mechanic: VIVIAN PANTOJA ([phone])[facility] ([facility])[address] [place] [address] Sodium [Moles/Vol] 143 mmol/L Normal 136-145 [facility] Comment on above: Performed By: #### Manpreet AB15, [id number], LAB61 ####Maint Mechanic: VIVIAN PANTOJA ([phone])[facility])[address] [place] [address] Urea nitrogen [Mass/Vol] 25 mg/dL High 9-23 [facility] Comment on above: Performed By: #### Manpreet AB15, [id number], LAB61 ####Maint Mechanic: VIVIAN PANTOJA ([phone])[facility])[address] [place] [address] Bacteria identified Cx Nom ( U)Ordered By: Spencer Guadalupe on 04-29-2024 Interpretation and review of laboratory results Normal [facility] Basic metabolic 1998 panelon 04-29-2024 Anion gap [Moles/Vol] 6 mmol/L 3 - 13 mmol/L [facility] Calcium [Mass/Vol] 8.5 mg/dL Low 8.8 - 10. 0 mg/dL [facility] Chloride [Moles/Vol] 116 mmol/L High 98 - 10 7 mmol/L [facility] CO2 [Moles/Vol] 21 mmol/L Low 23 - 31 mmol/L [facility] Creatinine [Mass/Vol] 1.51 mg/dL High 0.57 - 1.11 mg/dL [facility] GFR/1.73 sq M.predicted (S/P/Bld) [Vol rate/Area] 36.4 mL/min Low - PINF [facility] Glucose [Mass/Vol] 81 mg/dL Low 82 - 115 mg/dL [facility] Interpretation and review of laboratory results Abnormal [facility] Potassium [Moles/Vol] 3.8 mmol/L 3.5 - 5.1 mmol/L [facility] Sodium [Moles/Vol] 143 mmol/L 136 - 145 mmol/L [facility] Urea nitrogen [Mass/Vol] 25 mg/dL High 9 - 23 mg/dL [facility] CBC (HEMOGRAM)on 04-29-2024 Erythrocyte distribution width (RBC) [Ratio] 15.1 % High 11.5-15.0 [facility] Comment on above: Performed By: #### L AB294 ####Maint Mechanic: VIVIAN PANTOJA ([phone])[address] Hematocrit (Bld) [Volume fraction] 33.0 % Low 35.0-47.0 [facility] Comment on above: Performed By: #### L AB294 ####Maint Mechanic: VIVIAN PANTOJA ([phone])[facility])[address] [place] [address] Hemoglobin (Bld) [Mass/Vol] 9.9 g/dL Low 11.7-16.0 [facility] Comment on above: Performed By: #### L AB294 ####Maint Mechanic: VIVIAN PANTOJA ([phone])[facility])[address] [place] [address] IPF 11 Normal [facility] Comment on above: Performed By: #### L AB294 ####Maint Mechanic: VIVIAN [phone])[facility] ([facility])[address] [place] [address] MCH (RBC) [Entitic mass] 27.4 pg Normal 26.0-34.0 [facility] Comment on above: Performed By: #### L AB294 ####Maint Mechanic: VIVIAN PANTOJA ([phone])[facility] ([facility])[address] [place] [address] MCHC 30.0 % Low 30.5-36.0 [facility] Comment on above: Performed By: #### L AB294 ####Maint Mechanic: VIVIAN PANTOJA ([phone])[facility] ([facility])[address] [place] [address] MCV (RBC) [Entitic vol] 91.4 fL Normal 77.0-99.0 [facility] Comment on above: Performed By: #### L AB294 ####Maint Mechanic: VIVIAN PANTOJA ([phone])[facility] ([facility])[address] [place] [address] Platelet mean volume (Bld) [Entitic vol] 13.5 fL High 9.0-12.7 [facility] Comment on above: Performed By: #### L AB294 ####Maint Mechanic: VIVIAN PANTOJA ([phone])[facility] ([facility])[address] [place] [address] Platelets (Bld) [#/Vol] 77 10*3/uL Low 140-440 [facility] Comment on above: Performed By: #### L AB294 ####Maint Mechanic: VIVIAN PANTOJA ([phone])[facility] ([facility])[address] [place] [address] RBC (Bld) [#/Vol] 3.61 10*6/uL Low 3.80-5.20 [facility] Comment on above: Performed By: #### L AB294 ####Maint Mechanic: VIVIAN PANTOJA ([phone])[facility] ([facility])[address] [place] [address] WBC (Bld) [#/Vol] 8.6 10*3/uL Normal 3.6-10.7 [facility] Comment on above: Performed By: #### L AB294 ####Maint Mechanic: VIVIAN PANTOJA ([phone])[facility] ([facility])[address] [place] [address] CBC panel Auto (Bld)on 04-29 Erythrocyte distribution width (RBC) [Ratio] 15.1 % High 11.5 - 15.0 % [facility] Hematocrit (Bld) [Volume fraction] 33 % Low 35.0 - 47.0 % [facility] Hemoglobin (Bld) [Mass/Vol] 9.9 g/dL Low 11.7 - 16.0 g/dL [facility] Interpretation and review of laboratory results Abnormal [facility] IPF 11 [facility] MCH (RBC) [Entitic mass] 27.4 pg 26.0 - 34.0 pg [facility] Nonabox MCHC (RBC) [Mass/Vol] 30 % Low 30.5 - 36.0 % [facility] MCV (RBC) [Entitic vol] 91.4 fL 77.0 - 99.0 fL [facility] Platelet mean volume (Bld) [Entitic vol] 13.5 fL High 9.0 - 12.7 fL [facility] Platelets (Bld) [#/Vol] 77 10*3/uL Low 140 - 440 10*3/uL [facility] RBC (Bld) [#/Vol] 3.61 10*6/uL Low 3.80 - 5.2 0 10*6/uL [facility] WBC (Bld) [#/Vol] 8.6 10*3/uL 3.6 - 10.7 10*3/uL [facility] CORTISOLon 04-29-2024 CORTISOL 7.0 ug/dL Normal 3.7-19.4 [facility] Comment on above: Result Comment: LEOBARDO Gill COMMENTS:Before 10am 4.5-22.7 ug/dLAfter 5pm 1.7-14.1 ug/dL Performed By: #### L [id number], [id number], [id number] ####Maint Mechanic: VIVIAN PANTOJA ([phone])[facility] ([facility])[address] [place] [address] Laboratory - Chemistry and C hemistry - challengeon 04-29-2024 Cortisol [Mass/Vol] 7 ug/dL 3.7 - 19 .4 ug/dL [facility] - Microbiology an d Antimicrobial susceptibilityOrdered By: Spencer Guadalupe on 04-29-2024 Bacteria identified Cx Nom (U) Multiple species present; probable contamination; repeat suggested [facility] NT PRO BNPon 04-29-2024 Natriuretic peptide B (Bld) [Mass/Vol] 6549 pg/mL High <125 [facility] Comment on above: Performed By: #### L [id number], [id number], [id number] ####Maint Mechanic: VIVIAN PANTOJA ([phone])[facility] ([facility])[address] [place] [address] Natriuretic peptide B [Mass/ Vol]on 04-29-2024 Interpretation and review of laboratory results Abnormal [facility] Natriuretic peptide B (Bld) [Mass/Vol] 6549 pg/mL High NINF - 125 pg/mL [facility] No Panel Informationon 04-29 Interpretation and review of laboratory results Normal [facility] Progress Noteon 04-29-2024 Progress Note Normal [facility] Progress Note Normal [facility] Progress Note Normal [facility] 30on 04-28-2024 30 Normal [facility] 30 Normal [facility] BASIC METABOLIC PANELon 04-15 Anion gap [Moles/Vol] 7 mmol/L Normal 3-13 [facility] Comment on above: Performed By: #### L [id number], [id number] ####Maint Mechanic: VIVIAN PANTOJA ([phone])[facility] ([facility])[address] [place] [address] [place] Calcium [Mass/Vol] 9.0 mg/dL Normal 8.8-10.0 [facility] Comment on above: Performed By: #### L [id number], [id number] ####Maint Mechanic: VIVIAN PANTOJA ([phone])[facility] ([facility])[address] [place] [address] [place] Chloride [Moles/Vol] 116 mmol/L High 98-107 [facility] Comment on above: Performed By: #### L [id number], [id number] ####Maint Mechanic: VIVIAN PANTOJA ([phone])[facility])[address] [place] [address] CO2 [Moles/Vol] 19 mmol/L Low 23-31 [facility] Comment on above: Performed By: #### L [id number], [id number] ####Maint Mechanic: VIVIAN PANTOJA ([phone])[facility])[address] [place] [address] Creatinine [Mass/Vol] 1.86 mg/dL High 0.57-1.11 [facility] Comment on above: Performed By: #### L [id number], [id number] ####Maint Mechanic: VIVIAN PANTOJA ([phone])[facility])[address] [place] [address] GLOMERULAR FILTRATION RATE ML/MIN/1.73 SQ M.PREDICTED 28.3 mL/min/1.73m*2 Low >60.0 [facility] Comment on above: Result Comment: Calc ulation based on the Chronic Kidney Disease Epidemiology Collaboration (CKD-EPI) equation refit without adjustment for race Performed By: #### L [id number], [id number] ####Maint Mechanic: VIVIAN PANTOJA ([phone])[facility])[address] [place] [address] Glucose [Mass/Vol] 87 mg/dL Normal 82-115 [facility] Comment on above: Performed By: #### L [id number], [id number] ####Maint Mechanic: VIVIAN PANTOJA ([phone])[facility])[address] [place] [address] [place] Potassium [Moles/Vol] 4.1 mmol/L Normal 3.5-5.1 [facility] Comment on above: Result Comment: [facility] potassium values may be up to 0.5 mmol/L lower than serum values. Performed By: #### L AB15, [id number] ####Maint Mechanic: VIVIAN PANTOJA ([phone])[facility])[address] [place] [address] Sodium [Moles/Vol] 142 mmol/L Normal 136-145 [facility] Comment on above: Performed By: #### L [id number], [id number] ####Maint Mechanic: VIVIAN PANTOJA ([phone])[facility] ([facility])[address] [place] [address] Urea nitrogen [Mass/Vol] 26 mg/dL High 9-23 [facility] Comment on above: Performed By: #### L [id number], [id number] ####Maint Mechanic: VIVIAN PANTOJA ([phone])[facility] ([facility])[address] [place] [address] Basic metabolic 1998 panelon 04-28-2024 Anion gap [Moles/Vol] 7 mmol/L 3 - 13 mmol/L [facility] Calcium [Mass/Vol] 9 mg/dL 8.8 - 10. 0 mg/dL [facility] Chloride [Moles/Vol] 116 mmol/L High 98 - 10 7 mmol/L [facility] CO2 [Moles/Vol] 19 mmol/L Low 23 - 31 mmol/L [facility] Creatinine [Mass/Vol] 1.86 mg/dL High 0.57 - 1.11 mg/dL [facility] GFR/1.73 sq M.predicted (S/P/Bld) [Vol rate/Area] 28.3 mL/min Low - PINF [facility] Glucose [Mass/Vol] 87 mg/dL 82 - 115 mg/dL [facility] Interpretation and review of laboratory results Abnormal [facility] Potassium [Moles/Vol] 4.1 mmol/L 3.5 - 5.1 mmol/L [facility] Sodium [Moles/Vol] 142 mmol/L 136 - 145 mmol/L [facility] Urea nitrogen [Mass/Vol] 26 mg/dL High 9 - 23 mg/dL [facility] C. DIFFICILE BY PCR WITH REF JOMAR TO EIAon 04-28-2024 C. DIFFICILE BY PCR WITH REFLEX TO EIA C. DIFFICILE TOXIN PCR Reference Not Detected Not Detected ORDER COMMENTS: C. difficile infection is unlikely to be present. Methodology: Real-time PCR Normal [facility] Comment on above: Performed By: #### L [id number], [id number] ####Maint Mechanic: VIVIAN PANTOJA ([phone])[address] C. difficile toxin genes STEPHANIE +probe Ql (Stl)on 04-28-2024 C. difficile toxin B tcdB gene STEPHANIE+probe Ql (Stl) Not detected Not Detected [facility] Interpretation and review of laboratory results Normal [facility] CBC W Auto Differential pane l (Bld)Ordered By: Esvin Shepard on 04-28-2024 Basophils (Bld) [#/Vol] 0 10*3/uL 0.0 - 0.2 10*3/uL [facility] Basophils/100 WBC (Bld) 0.1 % 0.0 - 2.0 % [facility] Eosinophils (Bld) [#/Vol] 0 10*3/uL 0.0 - 0.5 10*3/uL [facility] Eosinophils/100 WBC (Bld) 0.1 % 0.0 - 6.0 % [facility] Erythrocyte distribution width (RBC) [Ratio] 15.1 % High 11.5 - 15.0 % [facility] Hematocrit (Bld) [Volume fraction] 36.2 % 35.0 - 47.0 % [facility] Hemoglobin (Bld) [Mass/Vol] 11.3 g/dL Low 11.7 - 16.0 g/dL [facility] Immature granulocytes (Bld) [#/Vol] 0 10*3/uL NINF - 0.1 10*3/uL [facility] Immature granulocytes/100 WBC (Bld) 0.4 % 0.0 - 2.0 % [facility] Interpretation and review of laboratory results Abnormal [facility] IPF 9 [facility] Lymphocytes (Bld) [#/Vol] 1.9 10*3/uL 1.0 - 4.3 10*3/uL [facility] Lymphocytes/100 WBC (Bld) 19.9 % 15.0 - 45.0 % [facility] MCH (RBC) [Entitic mass] 28 pg 26.0 - 34.0 pg [facility] MCHC (RBC) [Mass/Vol] 31.2 % 30.5 - 36.0 % [facility] MCV (RBC) [Entitic vol] 89.6 fL 77.0 - 99.0 fL [facility] Monocytes (Bld) [#/Vol] 2.5 10*3/uL High 0.0 - 0.9 10*3/uL [facility] Monocytes/100 WBC (Bld) 25.9 % High 5.0 - 13.0 % [facility] Neutrophils (Bld) [#/Vol] 5.2 10*3/uL 1.8 - 7.5 10*3/uL [facility] Neutrophils/100 WBC (Bld) 53.6 % 38.0 - 82.0 % [facility] Nucleated RBC/100 WBC (Bld) [Ratio] 0 % [facility] Platelet mean volume (Bld) [Entitic vol] 13.5 fL High 9.0 - 12.7 fL [facility] Platelets (Bld) [#/Vol] 83 10*3/uL Low 140 - 440 10*3/uL [facility] RBC (Bld) [#/Vol] 4.04 10*6/uL 3.80 - 5.2 0 10*6/uL [facility] WBC (Bld) [#/Vol] 9.7 10*3/uL 3.6 - 10.7 10*3/uL [facility] CBC WITH AUTO DIFFERENTIALon 04-28-2024 Basophils (Bld) [#/Vol] 0.0 10*3/uL Normal 0.0-0.2 [facility] Comment on above: Performed By: #### L [id number] ####Maint Mechanic: VIVIAN [phone])[address] Basophils/100 WBC (Bld) 0.1 % Normal 0.0-2.0 [facility] Comment on above: Performed By: #### L [id number] ####Maint Mechanic: VIVIAN [phone])[address] Eosinophils (Bld) [#/Vol] 0.0 10*3/uL Normal 0.0-0.5 [facility] Comment on above: Performed By: #### L [id number] ####Maint Mechanic: VIVIAN [phone])[facility])[address] [place] [address] Eosinophils/100 WBC (Bld) 0.1 % Normal 0.0-6.0 [facility] Comment on above: Performed By: #### L [id number] ####Maint Mechanic: VIVIAN PANTOJA ([phone])[facility])[address] [place] [address] Erythrocyte distribution width (RBC) [Ratio] 15.1 % High 11.5-15.0 [facility] Comment on above: Performed By: #### L [id number] ####Maint Mechanic: VIVIAN PANTOJA ([phone])[facility])[address] [place] [address] Hematocrit (Bld) [Volume fraction] 36.2 % Normal 35.0-47.0 [facility] Comment on above: Performed By: #### L [id number] ####Maint Mechanic: VIVIAN PANTOJA ([phone])[facility])[address] [place] [address] Hemoglobin (Bld) [Mass/Vol] 11.3 g/dL Low 11.7-16.0 [facility] Comment on above: Performed By: #### L [id number] ####Maint Mechanic: VIVIAN PANTOJA ([phone])[facility])[address] [place] [address] IMMATURE GRANS % 0.4 % Normal 0.0-2.0 [facility] Comment on above: Performed By: #### L [id number] ####Maint Mechanic: VIVIAN PANTOJA ([phone])[facility])[address] [place] [address] IMMATURE GRANS ABSOLUTE 0.0 10*3/uL Normal <0.1 [facility] Comment on above: Performed By: #### L [id number] ####Maint Mechanic: VIVIAN PANTOJA ([phone])[facility])[address] [place] [address] [place] IPF 9 Normal [facility] Comment on above: Performed By: #### L [id number] ####Maint Mechanic: VIVIAN PANTOJA ([phone])[facility])[address] [place] [address] Lymphocytes (Bld) [#/Vol] 1.9 10*3/uL Normal 1.0-4.3 [facility] Comment on above: Performed By: #### L [id number] ####Maint Mechanic: VIVIAN PANTOJA ([phone])[facility])[address] [place] [address] Lymphocytes/100 WBC (Bld) 19.9 % Normal 15.0-45.0 [facility] Comment on above: Performed By: #### L [id number] ####Maint Mechanic: VIVIAN PANTOJA ([phone])[facility])[address] [place] [address] MCH (RBC) [Entitic mass] 28.0 pg Normal 26.0-34.0 [facility] Comment on above: Performed By: #### L [id number] ####Maint Mechanic: VIVIAN PANTOJA ([phone])[facility])[address] [place] [address] MCHC 31.2 % Normal 30.5-36.0 [facility] Comment on above: Performed By: #### L [id number] ####Maint Mechanic: VIVIAN PANTOJA ([phone])[facility])[address] [place] [address] MCV (RBC) [Entitic vol] 89.6 fL Normal 77.0-99.0 [facility] Comment on above: Performed By: #### L [id number] ####Maint Mechanic: VIVIAN PANTOJA ([phone])[facility])[address] [place] [address] Monocytes (Bld) [#/Vol] 2.5 10*3/uL High 0.0-0.9 [facility] Comment on above: Performed By: #### L [id number] ####Maint Mechanic: VIVIAN [phone])[facility] ([facility])[address] [place] [address] Monocytes/100 WBC (Bld) 25.9 % High 5.0-13.0 [facility] Comment on above: Performed By: #### L [id number] ####Maint Mechanic: VIVIAN PANTOJA ([phone])[facility] ([facility])[address] [place] [address] NEUTROPHILS ABSOLUTE 5.2 10*3/uL Normal 1.8-7.5 [facility] Comment on above: Performed By: #### L [id number] ####Maint Mechanic: VIVIAN PANTOJA ([phone])[facility])[address] [place] [address] Neutrophils/100 WBC (Bld) 53.6 % Normal 38.0-82.0 [facility] Comment on above: Performed By: #### L [id number] ####Maint Mechanic: VIVIAN PANTOJA ([phone])[facility] ([facility])[address] [place] [address] NRBC 0.0 /100 WBCs Normal 0.0-2.0 [facility] Comment on above: Performed By: #### L [id number] ####Maint Mechanic: VIVIAN PANTOJA ([phone])[facility] ([facility])[address] [place] [address] Platelet mean volume (Bld) [Entitic vol] 13.5 fL High 9.0-12.7 [facility] Comment on above: Performed By: #### L [id number] ####Maint Mechanic: VIVIAN PANTOJA ([phone])[facility] ([facility])[address] [place] [address] [place] Platelets (Bld) [#/Vol] 83 10*3/uL Low 140-440 [facility] Comment on above: Performed By: #### L [id number] ####Maint Mechanic: VIVIAN PANTOJA ([phone])[facility] ([facility])[address] [place] [address] [place] RBC (Bld) [#/Vol] 4.04 10*6/uL Normal 3.80-5.20 [facility] Comment on above: Performed By: #### L [id number] ####Maint Mechanic: VIVIAN PANTOJA ([phone])[facility])[address] [place] [address] WBC (Bld) [#/Vol] 9.7 10*3/uL Normal 3.6-10.7 [facility] Comment on above: Performed By: #### L [id number] ####Maint Mechanic: VIVIAN PANTOJA ([phone])[facility] ([facility])[address] [place] [address] COMPLETE URINALYSISon 2024 BACTERIA (#/HPF) IN URINE Loaded Abnormal Negative [facility] Comment on above: Performed By: #### L [id number] ####Maint Mechanic: VIVIAN PANTOJA ([phone])[facility])[address] [place] [address] BILIRUBIN, TOTAL PRESENCE IN URINE Negative Normal Negative [facility] Comment on above: Performed By: #### L [id number] ####Maint Mechanic: VIVIAN PANTOJA ([phone])[facility])[address] [place] [address] Clarity (U) Turbid Abnormal Clear [facility] Comment on above: Performed By: #### L [id number] ####Maint Mechanic: VIVIAN PANTOJA ([phone])[facility])[address] [place] [address] Color (U) Yellow Normal Lt. Yellow [facility] Comment on above: Performed By: #### L [id number] ####Maint Mechanic: VIVIAN PANTOJA ([phone])[facility])[address] [place] [address] GLUCOSE (MG/DL) IN URINE Normal Normal Normal (<70) [facility] Comment on above: Performed By: #### L [id number] ####Maint Mechanic: VIVIAN PANTOJA ([phone])[facility] [place] [address] HEMOGLOBIN PRESENCE IN URINE Negative Normal Negative [facility] Comment on above: Performed By: #### L [id number] ####Maint Mechanic: VIVIAN PANTOJA ([phone])[facility] ([facility])[address] [place] [address] HYALINE CASTS (#/LPF) IN URINE SEDIMENT BY MICROSCOPY 26-50 Abnormal Negative [facility] Comment on above: Performed By: #### L [id number] ####Maint Mechanic: VIVIAN PANTOJA ([phone])[facility] ([facility])[address] [place] [address] Ketones Ql (U) Negative Normal Negative [facility] Comment on above: Performed By: #### L [id number] ####Maint Mechanic: VIVIAN PANTOJA ([phone])[facility] ([facility])[address] [place] [address] LEUKOCYTE ESTERASE PRESENCE IN URINE BY TEST STRIP Negative Normal Negative [facility] Comment on above: Performed By: #### L [id number] ####Maint Mechanic: VIVIAN PANTOJA ([phone])[facility] ([facility])[address] [place] [address] MUCUS (#/LPF) IN URINE SEDIMENT Few Normal Negative [facility] Comment on above: Performed By: #### L [id number] ####Maint Mechanic: VIVIAN PANTOJA ([phone])[facility] ([facility])[address] [place] [address] NITRITE PRESENCE IN URINE Negative Normal Negative [facility] Comment on above: Performed By: #### L [id number] ####Maint Mechanic: VIVIAN PANTOJA ([phone])[facility] ([facility])[address] [place] [address] pH (U) 5.0 [pH] Normal 5.0-8.0 [facility] Comment on above: Performed By: #### L [id number] ####Maint Mechanic: VIVIAN PANTOJA ([phone])[facility] ([address] Protein (U) [Mass/Vol] 50 mg/dL Abnormal Negative [facility] Comment on above: Performed By: #### L [id number] ####Maint Mechanic: VIVIAN PANTOJA ([phone])[facility])[address] [place] [address] RBC (#/HPF) IN URINE SEDIMENT 0-2 Normal 0-2 [facility] Comment on above: Performed By: #### L [id number] ####Maint Mechanic: VIVIAN PANTOJA ([phone])[facility] ([facility])[address] [place] [address] Specific gravity (U) [Rel density] 1.023 Normal 1.005-1.030 [facility] Comment on above: Performed By: #### L [id number] ####Maint Mechanic: VIVIAN PANTOJA ([phone])[facility] ([facility])[address] [place] [address] SQUAMOUS EPITHELIAL CELLS (#/HPF) IN URINE SEDIMENT 3-5 Normal 3-5 [facility] Comment on above: Performed By: #### L [id number] ####Maint Mechanic: VIVIAN PANTOJA ([phone])[facility])[address] [place] [address] UROBILINOGEN (MG/DL) IN URINE Normal Normal Normal (0-1) [facility] Comment on above: Performed By: #### L [id number] ####Maint Mechanic: VIVIAN PANTOJA ([phone])[facility])[address] [place] [address] WBC (LEUKOCYTE) (#/HPF) IN URINE SEDIMENT 3-5 Normal 0-5 [facility] Comment on above: Performed By: #### L [id number] ####Maint Mechanic: VIVIAN PANTOJA ([phone])[facility])[address] [place] [address] [place] Consulton 04-28-2024 Consult Normal [facility] Consult Normal [facility] ECG 12-LEADon 04-28-2024 ECG 12-LEAD IMPRESSION: Atrial fibrillation BRADYCARDIA WITH IRREGULAR RATE Low voltage, extremity leads Repol abnrm suggests ischemia, anterolateral Electronically Signed On 04-28-2024 06:19:58 EST by Olman Torre Normal [facility] ED Nursing Noteon 04-28-2024 ED Nursing Note Patient's meal tray ordered for room on 4N. Normal [facility] ED Nursing Note Pt given zofran PO a nd cranberry juice per request Normal [facility] ED Nursing Note Pt has thrown up the one bite of breakfast she ate. Pt is now nauseous and does not want to eat anymore. Pt believes she may be nauseous due to her medications. Pt was able to drink and keep down OJ Normal [facility] ED Nursing Note Pt is resting comfor tably in bed after being assisted to bedside commode. Pt urinated a small amount into hat and sent urine sample. Pt A&O x4, vitals WNL, breathing unlabored and chest rise equal. Pt denied any further needs at this time Normal [facility] ED Nursing Note Ordered pt breakfast Normal [facility] GASTROINTESTINAL PCR PANELon 04-28-2024 GASTROINTESTINAL PCR PANEL Normal [facility] Comment on above: Performed By: #### L [id number], [id number] ####Maint Mechanic: VIVIAN PANTOJA ([phone])[facility] ([facility])[address] [place] [address] Gastrointestinal pathogens p linda STEPHANIE+probe (Stl)Ordered By: Wilfred Bishop on 04-28-2024 Adenovirus F 40/41 Not detected Not Detected [facility] Astrovirus Not detected Not Detected [facility] Campylobacter Not detected Not Detected [facility] Cryptosporidium Not detected Not Detected [facility] Cyclospora cayetanensis Not detected Not Detected [facility] Entamoeba histolytica Not detected Not Detected [facility] Enterotoxigenic E coli (ETEC) Not detected Not Detected [facility] Giardia lamblia Not detected Not Detected [facility] Interpretation and review of laboratory results Normal [facility] Norovirus GI/GII Not detected Not Detected [facility] Plesiomonas shigelloides Not detected Not Detected [facility] Rotavirus A Not detected Not Detected [facility] Salmonella Not detected Not Detected [facility] Sapovirus Not detected Not Detected [facility] Shiga toxin-producing E coli (STEC) Not detected Not Detected [facility] Shigella/Enteroinvasiv e E coli (EIEC) Not detected Not Detected [facility] Vibrio cholerae Not detected Not Detected [facility] Vibrio species Not detected Not Detected [facility] Yersinia enterocolitica Not detected Not Detected [facility] HIGH SENSITIVITY TROPONIN, S ERIAL, THIRD TESTon 04-28-2024 4H TROPONIN HS (SERIAL 3RD TROPONIN) 35 ng/L High <=14 [facility] Comment on above: Result Comment: Risi ng or falling troponin delta below 2 ng/L as compared to 2h troponin value suggeststhat acute cardiac injury is unlikely. Performed By: #### L [id number] ####Maint Mechanic: VIVIAN PANTOJA ([phone])[facility] ([facility])[address] [place] [address] LEGIONELLA AND STREPTOCOCCUS URINE ANTIGENon 04-28-2024 LEGIONELLA AND STREPTOCOCCUS URINE ANTIGEN Normal [facility] Comment on above: Performed By: #### L [id number] ####Maint Mechanic: VIVIAN PANTOJA ([phone])[facility] ([facility])[address] [place] [address] Laboratory - Chemistry and C hemistry - challengeon 04-28-2024 TSH Qn 1.29 m[IU]/L [facility] Sodium (24H U) [Mass/Vol] mmol/L mmol/L [facility] NT PRO BNPon 04-28-2024 Natriuretic peptide B (Bld) [Mass/Vol] 8620 pg/mL High <125 [facility] Comment on above: Performed By: #### L [id number], [id number] ####Maint Mechanic: VIVIAN PANTOJA ([phone])[facility] ([facility])[address] [place] [address] Natriuretic peptide B [Mass/ Vol]on 04-28-2024 Interpretation and review of laboratory results Abnormal [facility] Natriuretic peptide B (Bld) [Mass/Vol] 8620 pg/mL High NINF - 125 pg/mL [facility] No Panel Informationon 04-28 Extra Tube Hold for add-ons. [facility] CREATININE, URINE 290.1 mg/dL High 47.0 - 110 .0 mg/dL [facility] Nonabox Interpretation and review of laboratory results Abnormal [facility] SODIUM, URINE, FRACTIONAL EXCRETION [facility] SODIUM, URINE, TUBULAR REABSORPTION [facility] [employer] CV EPIPHANY [facility] 4h Troponin HS (Serial 3rd Troponin) 35 ng/L High NINF - 14 ng/L [facility] Interpretation and review of laboratory results Abnormal [facility] No Panel InformationOrdered By: Olman Torre on 04-28-2024 P Lom[place] 0 degrees [place] Work Phone: PA Interval 0 ms [facility] Phone: QRS [place] 22 degrees [place] Work Phone: QRSD Interval 84 ms [facility] Phone: QT Interval 335 ms [facility] Phone: QTC Interval 309 ms [facility] Phone: T Wave [place] 231 degrees [facility] [employer] Phone: [facility] Phone: Nursing Noteon 04-28-2024 Nursing Note Patient came up from ED with tourniquet still in place on her LUE. Tourniquet removed. Reddish/purple marking noted on LUE. Patient denying any pain or discomfort. Normal [facility] Progress Noteon 04-28-2024 Progress Note Normal [facility] SODIUM, URINE, RANDOMon 04-15 CREATININE, URINE 290.1 mg/dL High 47.0-110.0 [facility] Comment on above: Performed By: #### L [id number] ####Maint Mechanic: VIVIAN PANTOJA ([phone])[facility] ([facility])[address] [place] [address] SODIUM, URINE <20 Normal [facility] Comment on above: Performed By: #### L [id number] ####Maint Mechanic: VIVIAN PANTOJA ([phone])[facility] ([facility])[address] [place] [address] SODIUM, URINE, FRACTIONAL EXCRETION <0.1 Normal [facility] Comment on above: Performed By: #### L [id number] ####Maint Mechanic: VIVIAN PANTOJA ([phone])[facility])[address] [place] [address] SODIUM, URINE, TUBULAR REABSORPTION >1.0 Normal [facility] Comment on above: Performed By: #### L [id number] ####Maint Mechanic: VIVIAN PANTOJA ([phone])[facility])[address] [place] [address] THYROID STIMULATING HORMONEo n 04-28-2024 THYROID STIMULATING HORMONE 1.29 uIU/mL Normal 0.35-4.94 [facility] Comment on above: Performed By: #### L [id number] ####Maint Mechanic: VIVIAN PANTOJA ([phone])[facility])[address] [place] [address] TSH Qnon 04-28-2024 Interpretation and review of laboratory results Normal [facility] URINE CULTUREon 04-28-2024 Bacteria identified Cx Nom (U) Normal [facility] Comment on above: Performed By: #### L [id number] ####Maint Mechanic: VIVIAN PANTOJA ([phone])[facility])[address] [place] [address] US Kidneyon 04-28-2024 [facility] Radiology Study observation (narrative) [facility] US KidneyOrdered By: Rosalia Leiva on 04-28-2024 [facility] Work Phone: US RENAL COMPLETEon 04-28-19 US RENAL COMPLETE Normal [facility] Urinalysis complete panel (U )Ordered By: Shellie Navas on 04-28-2024 Bacteria LM.HPF (Urine sed) [#/Area] Loaded Abnormal Negative /HPF [facility] Bilirubin Ql (U) Negative Negative mg/dL [facility] Clarity (U) Turbid Abnormal Clear [facility] Color (U) Yellow Lt. Yellow [facility] Epithelial cells.squamous LM.HPF (Urine sed) [#/Area] 3-5 [facility] Glucose Ql (U) Normal Normal (<70) mg/dL [facility] Hemoglobin Ql (U) Negative Negative mg/dL [facility] Hyaline casts Auto (Urine sed) [#/Area] 26-50 Abnormal Negative /LPF [facility] Interpretation and review of laboratory results Abnormal [facility] Ketones (U) [Mass/Vol] Negative Negat ute mg/dL [facility] Leukocyte esterase Test strip Ql (U) Negative Negative Ghada/uL [facility] Mucus LM.HPF (Urine sed) [#/Area] Few Negative /LPF [facility] Nitrite Ql (U) Negative Negative [facility] pH (U) 5.0 [pH] 5.0 - 8.0 pH [facility] Protein (U) [Mass/Vol] 50 mg/dL Abnormal Negative Self [facility] RBC LM.HPF (Urine sed) [#/Area] 0-2 [facility] Specific gravity (U) [Rel density] 1.023 1.005 - 1.030 [facility] Urobilinogen (U) [Mass/Vol] Normal Normal (0-1) mg/dL [facility] WBC LM.HPF (Urine sed) [#/Area] 3-5 [facility] Vital signsOrdered By: Luciano Torre on 04-28-2024 Heart rate 51 /min bpm [facility] Work Phone: 36on 04-27-2024 36 Placed call to shari nt. Unable to reach them by phone to discuss lab results. Left detailed message to return call to discuss results. Please release information to patient Normal [facility] 36 Normal [facility] 36 Normal [facility] 36 Normal [facility] BASIC METABOLIC PANELon 04-15 Anion gap [Moles/Vol] 8 mmol/L Normal - [facility] Comment on above: Performed By: #### L [id number] ####Maint Mechanic: VIVIAN PANTOAJ ([phone])[facility] ([facility])[address] [place] [address] Calcium [Mass/Vol] 9.4 mg/dL Normal 8.8-10.0 [facility] Comment on above: Performed By: #### L [id number] ####Maint Mechanic: VIVIAN PANTOJA ([phone])[facility] ([facility])[address] [place] [address] [place] Chloride [Moles/Vol] 115 mmol/L High 98-107 [facility] Comment on above: Performed By: #### L [id number] ####Maint Mechanic: VIVIAN PANTOJA ([phone])[facility] ([facility])[address] [place] [address] [place] CO2 [Moles/Vol] 20 mmol/L Low 23-31 [facility] Comment on above: Performed By: #### L [id number] ####Maint Mechanic: VIVIAN PANTOJA ([phone])[facility] ([facility])[address] [place] [address] [place] Creatinine [Mass/Vol] 1.27 mg/dL High 0.57-1.11 [facility] Comment on above: Performed By: #### L [id number] ####Maint Mechanic: VIVIAN PANTOJA ([phone])[facility] ([facility])[address] [place] [address] [place] GLOMERULAR FILTRATION RATE ML/MIN/1.73 SQ M.PREDICTED 44.7 mL/min/1.73m*2 Low >60.0 [facility] Comment on above: Result Comment: Calc ulation based on the Chronic Kidney Disease Epidemiology Collaboration (CKD-EPI) equation refit without adjustment for race Performed By: #### L [id number] ####Maint Mechanic: VIVIAN PANTOJA ([phone])[facility] ([facility])[address] [place] [address] [place] Glucose [Mass/Vol] 104 mg/dL Normal 82-115 [facility] Comment on above: Performed By: #### L [id number] ####Maint Mechanic: VIVIAN PANTOJA ([phone])[facility] ([facility])[address] [place] [address] [place] Potassium [Moles/Vol] 4.2 mmol/L Normal 3.5-5.1 [facility] Comment on above: Result Comment: [facility] potassium values may be up to 0.5 mmol/L lower than serum values. Performed By: #### L [id number] ####Maint Mechanic: VIVIAN PANTOJA ([phone])[facility] ([facility])[address] [place] [address] Sodium [Moles/Vol] 143 mmol/L Normal 136-145 [facility] Comment on above: Performed By: #### L [id number] ####Maint Mechanic: VIVIAN PANTOJA ([phone])[facility] ([facility])[address] [place] [address] Urea nitrogen [Mass/Vol] 25 mg/dL High 9-23 [facility] Comment on above: Performed By: #### L [id number] ####Maint Mechanic: VIVIAN PANTOJA ([phone])[facility] ([facility])[address] [place] [address] Basic metabolic 1998 panelon 04-27-2024 Anion gap [Moles/Vol] 8 mmol/L 3 - 13 mmol/L [facility] Calcium [Mass/Vol] 9.4 mg/dL 8.8 - 10. 0 mg/dL [facility] Chloride [Moles/Vol] 115 mmol/L High 98 - 10 7 mmol/L [facility] CO2 [Moles/Vol] 20 mmol/L Low 23 - 31 mmol/L [facility] Creatinine [Mass/Vol] 1.27 mg/dL High 0.57 - 1.11 mg/dL [facility] GFR/1.73 sq M.predicted (S/P/Bld) [Vol rate/Area] 44.7 mL/min Low - PINF [facility] Comment on above: Calculation based on the Chronic Kidney Disease Epidemiology Collaboration (CKD-EPI) equation refit without adjustment for race Glucose [Mass/Vol] 104 mg/dL 82 - 115 mg/dL [facility] Interpretation and review of laboratory results Abnormal [facility] Potassium [Moles/Vol] 4.2 mmol/L 3.5 - 5.1 mmol/L [facility] Comment on above: Plasma potassium imer ues may be up to 0.5 mmol/L lower than serum values. Sodium [Moles/Vol] 143 mmol/L 136 - 145 mmol/L [facility] Urea nitrogen [Mass/Vol] 25 mg/dL High 9 - 23 mg/dL [facility] CATECHOLAMINES,FRAC URINEon 04-27-2024 CATECHOLAMINES, URINE INTERPRETATION See Note Normal [facility] Comment on above: Result Comment: TEST [...] gender-specific referenceintervals for this test in the [facility]([employer]).This test was developed and its performance characteristicsdetermined by [facility]. It has not been cleared orapproved by the [place] Food and Drug Administration. This test wasperformed in a CLIA certified laboratory and is intended forclinical purposes. Performed By: #### L [id number] ####[facility] ([facility])[address] [place] [address] [place] DOPAMINE, URINE - PER 24H 100 ug/d Normal 71-485 [facility] Comment on above: Result Comment: REFE RENCE INTERVAL: Dopamine, Urine - ug/dAccess complete set of age- and/or gender-specific referenceintervals for this test in the [facility]([employer]). Performed By: #### L [id number] ####[facility] ([facility])[address] [place] [address] [facility] DOPAMINE, URINE - PER VOLUME 322 ug/L Normal [facility] Comment on above: Performed By: #### L [id number] ####[facility] ([facility])[address] [place] [address] [facility] DOPAMINE, URINE - RATIO TO COCONUT COOKER 177 ug/g [place]OOKER Normal 0-250 [facility] Comment on above: Performed By: #### L [id number] ####[facility] ([facility])[address] [place] [address] [place] EPINEPHRINE, URINE - PER 24H 1 ug/d Normal 1-14 [facility] Comment on above: Result Comment: REFE RENCE INTERVAL: Epinephrine, Urine - ug/dAccess complete set of age- and/or gender-specific referenceintervals for this test in the [facility]([employer]). Performed By: #### L [id number] ####[facility] ([facility])[address] [place] [address] [place] EPINEPHRINE, URINE - PER VOLUME 2 ug/L Normal [facility] Comment on above: Performed By: #### L [id number] ####[facility] ([facility])[address] EPINEPHRINE, URINE - RATIO TO C[place] COOKER 1 ug/g [place] COOKER Normal 0-20 [facility] Comment on above: Performed By: #### L [id number] ####[facility] ([facility])[address] [place] [address] [place] NOREPINEPHRINE, URINE - PER 24H 15 ug/d Normal 14-120 [facility] Comment on above: Result Comment: REFE RENCE INTERVAL: Norepinephrine, Urine - ug/dAccess complete set of age- and/or gender-specific referenceintervals for this test in the [facility]([employer]). Performed By: #### L [id number] ####[facility] ([facility])[address] [place] [address] [place] NOREPINEPHRINE, URINE - PER VOLUME 49 ug/L Normal [facility] Comment on above: Performed By: #### L [id number] ####[facility] ([facility])[address] [place] [address] [place] NOREPINEPHRINE, URINE - RATIO TO C[place] COOKER 27 ug/g [place]OOK[place] Normal 0-45 [facility] Comment on above: Performed By: #### L [id number] ####[facility] ([facility])[address] [place] [address] [facility] CBC W Auto Differential pane l (Bld)Ordered By: Melissa Denson on 04-27-2024 Erythrocyte distribution width (RBC) [Ratio] 15 % 11.5 - 15.0 % [facility] Hematocrit (Bld) [Volume fraction] 38.6 % 35.0 - 47.0 % [facility] Hemoglobin (Bld) [Mass/Vol] 11.6 g/dL Low 11.7 - 16.0 g/dL [facility] Interpretation and review of laboratory results Abnormal [facility] IPF 12 [facility] MCH (RBC) [Entitic mass] 27.2 pg 26.0 - 34.0 pg [facility] MCHC (RBC) [Mass/Vol] 30.1 % Low 30.5 - 36.0 % [facility] MCV (RBC) [Entitic vol] 90.4 fL 77.0 - 99.0 fL [facility] Platelet mean volume (Bld) [Entitic vol] 13.4 fL High 9.0 - 12.7 fL [facility] Platelets (Bld) [#/Vol] 93 10*3/uL Low 140 - 440 10*3/uL [facility] RBC (Bld) [#/Vol] 4.27 10*6/uL 3.80 - 5.2 0 10*6/uL [facility] WBC (Bld) [#/Vol] 13.5 10*3/uL High 3.6 - 10.7 10*3/uL [facility] CBC WITH AUTO DIFFERENTIALon 04-27-2024 Erythrocyte distribution width (RBC) [Ratio] 15.0 % Normal 11.5-15.0 [facility] Comment on above: Performed By: #### L [id number], [id number] ####Maint Mechanic: VIVIAN PANTOJA ([phone])[facility] ([facility])[address] [place] [address] Hematocrit (Bld) [Volume fraction] 38.6 % Normal 35.0-47.0 [facility] Comment on above: Performed By: #### L [id number], [id number] ####Maint Mechanic: VIVIAN PANTOJA ([phone])[facility] ([address] Hemoglobin (Bld) [Mass/Vol] 11.6 g/dL Low 11.7-16.0 [facility] Comment on above: Performed By: #### Manpreet [id number], [id number] ####Maint Mechanic: VIVIAN PANTOJA ([phone])[facility])[address] [place] [address] IPF 12 Normal [facility] Comment on above: Performed By: #### Manpreet SAINI, [id number] ####Maint Mechanic: VIVIAN PANTOJA ([phone])[facility])[address] [place] [address] MCH (RBC) [Entitic mass] 27.2 pg Normal 26.0-34.0 [facility] Comment on above: Performed By: #### Manpreet SAINI, [id number] ####Maint Mechanic: VIVIAN PANTOJA ([phone])[facility])[address] [place] [address] MCHC 30.1 % Low 30.5-36.0 [facility] Comment on above: Performed By: #### Manpreet SAINI, [id number] ####Maint Mechanic: VIVIAN PANTOJA ([phone])[facility])[address] [place] [address] MCV (RBC) [Entitic vol] 90.4 fL Normal 77.0-99.0 [facility] Comment on above: Performed By: #### Manpreet SAINI, [id number] ####Maint Mechanic: VIVIAN PANTOJA ([phone])[facility])[address] [place] [address] Platelet mean volume (Bld) [Entitic vol] 13.4 fL High 9.0-12.7 [facility] Comment on above: Performed By: #### Manpreet [id number], [id number] ####Maint Mechanic: VIVIAN PANTOJA ([phone])[facility])[address] [place] [address] Platelets (Bld) [#/Vol] 93 10*3/uL Low 140-440 [facility] Comment on above: Performed By: #### L [id number], [id number] ####Maint Mechanic: VIVIAN PANTOJA ([phone])[facility] ([facility])[address] [place] [address] RBC (Bld) [#/Vol] 4.27 10*6/uL Normal 3.80-5.20 [facility] Comment on above: Performed By: #### Manpreet [id number], [id number] ####Maint Mechanic: VIVIAN PANTOJA ([phone])[facility] ([facility])[address] [place] [address] WBC (Bld) [#/Vol] 13.5 10*3/uL High 3.6-10.7 [facility] Comment on above: Performed By: #### Manpreet [id number], [id number] ####Maint Mechanic: VIVIAN PANTOJA ([phone])[facility] ([facility])[address] [place] [address] COMPREHENSIVE METABOLIC PANE Amaury 04-27-2024 Albumin [Mass/Vol] 4.0 g/dL Normal 3.4-4.8 [facility] Comment on above: Performed By: #### L AB17, [id number], [id number], [id number], LAB99 ####Maint Mechanic: VIVIAN PANTOJA ([phone])[facility] ([facility])[address] [place] [address] ALP [Catalytic activity/Vol] 60 U/L Normal 40-150 [facility] Comment on above: Performed By: #### L AB17, [id number], LAB61, [id number], LAB99 ####Maint Mechanic: VIVIAN PANTOJA ([phone])[facility])[address] [place] [address] ALT [Catalytic activity/Vol] 10 U/L Normal <30 [facility] Comment on above: Performed By: #### L AB17, [id number], LAB61, [id number], LAB99 ####Maint Mechanic: VIVIAN PANTOJA ([phone])[facility] ([facility])[address] [place] [address] Anion gap [Moles/Vol] 8 mmol/L Normal 3-13 [facility] Comment on above: Performed By: #### L AB17, [id number], LAB61, [id number], LAB99 ####Maint Mechanic: VIVIAN PANTOJA ([phone])[facility] ([facility])[address] [place] [address] AST [Catalytic activity/Vol] 12 U/L Normal <34 [facility] Comment on above: Performed By: #### L AB17, [id number], LAB61, [id number], LAB99 ####Maint Mechanic: VIVIAN PANTOJA ([phone])[facility] ([facility])[address] [place] [address] Bilirubin [Mass/Vol] 0.7 mg/dL Normal <1.2 [facility] Comment on above: Performed By: #### L AB17, [id number], LAB61, [id number], LAB99 ####Maint Mechanic: VIVIAN PANTOJA ([phone])[facility] ([facility])[address] [place] [address] Calcium [Mass/Vol] 9.4 mg/dL Normal 8.8-10.0 [facility] Comment on above: Performed By: #### L AB17, [id number], LAB61, [id number], LAB99 ####Maint Mechanic: VIVIAN PANTOJA ([phone])[facility] ([facility])[address] [place] [address] Chloride [Moles/Vol] 114 mmol/L High 98-107 [facility] Comment on above: Performed By: #### L AB17, [id number], LAB61, [id number], LAB99 ####Maint Mechanic: VIVIAN PANTOJA ([phone])[facility])[address] [place] [address] CO2 [Moles/Vol] 20 mmol/L Low 23-31 [facility] Comment on above: Performed By: #### L AB17, [id number], LAB61, [id number], LAB99 ####Maint Mechanic: VIVIAN PANTOJA ([phone])[facility])[address] [place] [address] Creatinine [Mass/Vol] 1.84 mg/dL High 0.57-1.11 [facility] Comment on above: Performed By: #### L AB17, [id number], LAB61, [id number], LAB99 ####Maint Mechanic: VIVIAN PANTOJA ([phone])[facility] ([facility])[address] [place] [address] [place] GLOMERULAR FILTRATION RATE ML/MIN/1.73 SQ M.PREDICTED 28.7 mL/min/1.73m*2 Low >60.0 [facility] Comment on above: Result Comment: Calc ulation based on the Chronic Kidney Disease Epidemiology Collaboration (CKD-EPI) equation refit without adjustment for race Performed By: #### Manpreet AB17, [id number], LAB61, [id number], LAB99 ####Maint Mechanic: VIVIAN PANTOJA ([phone])[facility])[address] [place] [address] [place] Glucose [Mass/Vol] 134 mg/dL High 82-115 [facility] Comment on above: Performed By: #### L AB17, [id number], LAB61, [id number], LAB99 ####Maint Mechanic: VIVIAN PANTOJA ([phone])[facility])[address] [place] [address] [place] Potassium [Moles/Vol] 3.7 mmol/L Normal 3.5-5.1 [facility] Comment on above: Result Comment: [facility] potassium values may be up to 0.5 mmol/L lower than serum values. Performed By: #### L AB17, [id number], LAB61, [id number], LAB99 ####Maint Mechanic: VIVIAN PANTOJA ([phone])[facility])[address] [place] [address] Protein [Mass/Vol] 6.1 g/dL Low 6.4-8.3 [facility] Comment on above: Performed By: #### L AB17, [id number], LAB61, [id number], LAB99 ####Maint Mechanic: VIVIAN PANTOJA ([phone])[facility])[address] [place] [address] Sodium [Moles/Vol] 142 mmol/L Normal 136-145 [facility] Comment on above: Performed By: #### L AB17, [id number], LAB61, [id number], LAB99 ####Maint Mechanic: VIVIAN PANTOJA ([phone])[facility])[address] [place] [address] Urea nitrogen [Mass/Vol] 27 mg/dL High 9-23 [facility] Comment on above: Performed By: #### L AB17, [id number], LAB61, [id number], LAB99 ####Maint Mechanic: VIVIAN PANTOJA ([phone])[facility])[address] [place] [address] CORTISOLon 04-27-2024 CORTISOL 11.4 ug/dL Normal 3.7-19.4 [facility] Comment on above: Result Comment: ORDE R COMMENTS:Before 10am 4.5-22.7 ug/dLAfter 5pm 1.7-14.1 ug/dL Performed By: #### L AB17, [id number], LAB61, [id number], LAB99 ####Maint Mechanic: VIVIAN PANTOJA ([phone])[facility])[address] [place] [address] CT ABDOMEN PELVIS WO IV CONT RASTon 04-27-2024 CT ABDOMEN PELVIS WO IV CONTRAST Normal [facility] CT Abdomen and Pelvis WO con traston 04-27-2024 Critical access hospital [facility] Radiology Study observation (narrative) [facility] CT Abdomen and Pelvis WO con trastOrdered By: Selma Azevedo on 04-27-2024 [facility] Work Phone: Comprehensive metabolic 1998 panelon 04-27-2024 Albumin [Mass/Vol] 4 g/dL 3.4 - 4.8 g/dL [facility] ALP [Catalytic activity/Vol] 60 U/L 40 - 150 U/L [facility] ALT [Catalytic activity/Vol] 10 U/L NINF - 30 U/L [facility] Anion gap [Moles/Vol] 8 mmol/L 3 - 13 mmol/L [facility] AST [Catalytic activity/Vol] 12 U/L NINF - 34 U/L [facility] Bilirubin [Mass/Vol] 0.7 mg/dL NINF - 1.2 mg/dL [facility] Calcium [Mass/Vol] 9.4 mg/dL 8.8 - 10. 0 mg/dL [facility] Chloride [Moles/Vol] 114 mmol/L High 98 - 10 7 mmol/L [facility] CO2 [Moles/Vol] 20 mmol/L Low 23 - 31 mmol/L [facility] Creatinine [Mass/Vol] 1.84 mg/dL High 0.57 - 1.11 mg/dL [facility] GFR/1.73 sq M.predicted (S/P/Bld) [Vol rate/Area] 28.7 mL/min Low - PINF [facility] Glucose [Mass/Vol] 134 mg/dL High 82 - 115 mg/dL [facility] Interpretation and review of laboratory results Abnormal [facility] Potassium [Moles/Vol] 3.7 mmol/L 3.5 - 5.1 mmol/L [facility] Protein [Mass/Vol] 6.1 g/dL Low 6.4 - 8.3 g/dL [facility] Sodium [Moles/Vol] 142 mmol/L 136 - 145 mmol/L [facility] Urea nitrogen [Mass/Vol] 27 mg/dL High 9 - 23 mg/dL [facility] DIGOXINon 04-27-2024 Digoxin [Mass/Vol] 2.0 ng/mL Normal 0.8-2.0 [facility] Comment on above: Result Comment: LEOBARDO Gill COMMENTS:Toxicity seen at concentrations >2.0 ng/mL Performed By: #### L [id number] ####Maint Mechanic: VIVIAN PANTOJA ([phone])[facility] ([address] Digoxin [Mass/Vol] 2.4 ng/mL High 0.8-2.0 [facility] Comment on above: Result Comment: LEOBARDO Gill COMMENTS:Toxicity seen at concentrations >2.0 ng/mL Performed By: #### L [id number] ####Maint Mechanic: VIVIAN PANTOJA ([phone])[facility] CENTERBessy RUEDA ([facility]RL[facility])[address] [place] [address] Digoxin levelon 04-27-2024 Digoxin [Mass/Vol] 2.4 ng/mL High 0.8 - 2.0 ng/mL [facility] Interpretation and review of laboratory results Abnormal [facility] Toxicity seen at concentrations >2.0 ng/mL [facility] ECG 12 lead - CLINIC PERFORM EDon 04-27-2024 [facility] ED Provider Noteon ED Provider Note Normal [facility] HIGH SENSITIVITY TROPONIN, S ERIAL BASELINEon 04-27-2024 TROPONIN HS SERIAL BASELINE 40 ng/L High <=14 [facility] Comment on above: Result Comment: In i ndividuals presenting with symptoms > 2h, a baseline troponin <= 5 ng/L suggests acutecardiac injury is unlikely and further serial testing is generally not indicated. Performed By: #### L [id number], [id number], [id number], [id number], LAB99 ####Maint Mechanic: VIVIAN PANTOJA ([phone])[facility] ([facility])[address] [place] [address] HIGH SENSITIVITY TROPONIN, S ERIAL, SECOND TESTon 04-27-2024 2H TROPONIN HS (SERIAL 2ND TROPONIN) 37 ng/L High <=14 [facility] Comment on above: Result Comment: Risi ng or falling troponin delta between 2 ??? 15 ng/L as compared to baseline value requires a 3rd serial troponin Performed By: #### L [id number] ####Maint Mechanic: VIVIAN PANTOJA ([phone])[facility] ([facility])[address] [place] [address] LIPASEon 04-27-2024 Lipase [Catalytic activity/Vol] 31 U/L Normal <55 [facility] Comment on above: Performed By: #### L AB17, [id number], [id number], [id number], LAB99 ####Maint Mechanic: VIVIAN PANTOJA ([phone])[facility] ([facility])[address] [place] [address] Laboratory - Chemistry and C hemistry - challengeon 04-27-2024 Cortisol [Mass/Vol] 11.4 ug/dL 3.7 - 19 .4 ug/dL [facility] Magnesium [Mass/Vol] 1.7 mg/dL 1.6 - 2 .6 mg/dL [facility] Lipase [Catalytic activity/Vol] 31 U/L NINF - 55 U/L [facility] Laboratory - Drug toxicology on 04-27-2024 Digoxin [Mass/Vol] 2 ng/mL 0.8 - 2.0 ng/mL [facility] Laboratory - Hematology and Cell countson 04-27-2024 Lymphocytes (Bld) [#/Vol] 3.1 10*3/uL 1.0 - 4.3 10*3/uL [facility] Lymphocytes/100 WBC (Bld) 23 % 15 - 45 % [facility] Monocytes (Bld) [#/Vol] 2.2 10*3/uL High 0.0 - 0.9 10*3/uL [facility] Monocytes/100 WBC (Bld) 16 % High 5 - 13 % [facility] Neutrophils (Bld) [#/Vol] 8.4 10*3/uL High 1.8 - 7.5 10*3/uL [facility] Ovalocytes LM Ql (Bld) Slight Abnormal (none) [facility] Poikilocytosis LM Ql (Bld) Slight Abnormal (none) [facility] RBC morphology finding Nom (Bld) abnormal [facility] Segmented neutrophils/100 WBC (Bld) 62 % 38 - 82 % [facility] Lipase [Catalytic activity/V ol]on 04-27-2024 Interpretation and review of laboratory results Normal [facility] MAGNESIUMon 04-27-2024 Magnesium [Mass/Vol] 1.7 mg/dL Normal 1.6-2.6 [facility] Comment on above: Result Comment: LEOBARDO Gill COMMENTS:Higher values can be expected in females during menses. Performed By: #### L AB17, [id number], LAB61, [id number], LAB99 ####Maint Mechanic: VIVIAN PANTOJA ([phone])[facility] ([facility])[address] [place] [address] MANUAL DIFFERENTIAL (CELLAVI TANYA)on 04-27-2024 BAND NEUTROPHILS TOTAL PER COUNTED LEUKOCYTES BY MANUAL COUNT Normal [facility] Comment on above: Performed By: #### L [id number], [id number] ####Maint Mechanic: VIVIAN PANTOJA ([phone])[facility] ([facility])[address] [place] [address] [place] BASOPHILS TOTAL PER COUNTED LEUKOCYTES BY MANUAL COUNT Normal [facility] Comment on above: Performed By: #### L [id number], [id number] ####Maint Mechanic: VIVIAN PANTOJA ([phone])[facility] ([facility])[address] [place] [address] [place] BLASTS TOTAL PER COUNTED LEUKOCYTES BY MANUAL COUNT Normal [facility] Comment on above: Performed By: #### L [id number], [id number] ####Maint Mechanic: VIVIAN PANTOJA ([phone])[facility] ([facility])[address] [place] [address] [place] EOSINOPHILS TOTAL PER COUNTED LEUKOCYTES BY MANUAL COUNT Normal [facility] Comment on above: Performed By: #### L [id number], [id number] ####Maint Mechanic: VIVIAN PANTOJA ([phone])[facility] ([facility])[address] [place] [address] [place] LYMPHOCYTES (10*3/UL) IN BLOOD-CELLAVISION 3.1 10*3/uL Normal 1.0-4.3 [facility] Comment on above: Performed By: #### L [id number], [id number] ####Maint Mechanic: VIVIAN PANTOJA ([phone])[facility] ([facility])[address] [place] [address] [place] LYMPHOCYTES TOTAL PER COUNTED LEUKOCYTES BY MANUAL COUNT 23 Normal [facility] Comment on above: Performed By: #### L [id number], [id number] ####Maint Mechanic: VIVIAN PANTOJA ([phone])[facility] ([facility])[address] [place] [address] [place] LYMPHOCYTES/100 LEUKOCYTES IN BLOOD-CELLAVISION 23 % Normal 15-45 [facility] Comment on above: Performed By: #### L [id number], [id number] ####Maint Mechanic: VIVIAN PANTOJA ([phone])[facility] ([facility])[address] [place] [address] [place] METAMYELOCYTES TOTAL PER COUNTED LEUKOCYTES BY MANUAL COUNT [facility] Comment on above: Performed By: #### L [id number], [id number] ####Maint Mechanic: VIVIAN PANTOJA ([phone])[facility] ([facility])[address] [place] [address] [place] MONOCYTES (10*3/UL) IN BLOOD-CELLAVISION 2.2 10*3/uL High 0.0-0.9 [facility] Comment on above: Performed By: #### L [id number], [id number] ####Maint Mechanic: VIVIAN PANTOJA ([phone])[facility] ([facility])[address] [place] [address] MONOCYTES TOTAL PER COUNTED LEUKOCYTES BY MANUAL COUNT 16 Normal [facility] Comment on above: Performed By: #### L [id number], [id number] ####Maint Mechanic: VIVIAN PANTOJA ([phone])[facility] ([facility])[address] [place] [address] [place] MONOCYTES/100 LEUKOCYTES IN BLOOD-IBETH 16 % High 5-13 [facility] Comment on above: Performed By: #### L [id number], [id number] ####Maint Mechanic: VIVIAN PANTOJA ([phone])[facility] ([facility])[address] [place] [address] MYELOCYTES COUNTED BY MANUAL COUNT [facility] Comment on above: Performed By: #### L [id number], [id number] ####Maint Mechanic: VIVIAN PANTOJA ([phone])[facility] ([facility])[address] [place] [address] [place] NEUTROPHILS TOTAL PER COUNTED LEUKOCYTES BY MANUAL COUNT 63 [facility] Comment on above: Performed By: #### L [id number], [id number] ####Maint Mechanic: VIVIAN PANTOJA ([phone])[facility] ([facility])[address] [place] [address] [place] OVALOCYTES PRESENCE IN BLOOD BY LIGHT MICROSCOPY Slight Abnormal (none) [facility] Comment on above: Performed By: #### L [id number], [id number] ####Maint Mechanic: VIVIAN PANTOJA ([phone])[facility] ([facility])[address] [place] [address] POIKILOCYTOSIS (PRESENCE) IN BLOOD BY LIGHT MICROSCOPY Slight Abnormal (none) [facility] Comment on above: Performed By: #### L [id number], [id number] ####Maint Mechanic: VIVIAN PANTOJA ([phone])[facility] ([facility])[address] [place] [address] PROMYELOCYTES TOTAL PER COUNTED LEUKOCYTES BY MANUAL COUNT Normal [facility] Comment on above: Performed By: #### L [id number], [id number] ####Maint Mechanic: VIVIAN PANTOJA ([phone])[facility] ([facility])[address] [place] [address] RBC MORPHOLOGY IN BLOOD abnormal Normal [facility] Comment on above: Performed By: #### L [id number], [id number] ####Maint Mechanic: VIVIAN PANTOJA ([phone])[facility] ([facility])[address] [place] [address] SEGMENTED NEUTROPHILS (10*3/UL) IN BLOOD-CELLAVISION 8.4 10*3/uL High 1.8-7.5 [facility] Comment on above: Performed By: #### L [id number], [id number] ####Maint Mechanic: VIVIAN PANTOJA ([phone])[facility] ([facility])[address] [place] [address] [place] SEGMENTED NEUTROPHILS/100 LEUKOCYTES-CE 62 % Normal 38-82 [facility] Comment on above: Performed By: #### L [id number], [id number] ####Maint Mechanic: VIVIAN PANTOJA ([phone])[facility] ([facility])[address] [place] [address] UNCLASSIFIED CELLS TOTAL PER COUNTED LEUKOCYTES BY MANUAL COUNT Normal [facility] Comment on above: Performed By: #### L [id number], [id number] ####Maint Mechanic: VIVIAN PANTOJA ([phone])[facility] ([facility])[address] [place] [address] VARIANT LYMPHOCYTES TOTAL PER COUNTED LEUKOCYTES BY MANUAL COUNT Normal [facility] Comment on above: Performed By: #### L [id number], [id number] ####Maint Mechanic: VIVIAN PANTOJA ([phone])[facility] ([facility])[address] [place] [address] Magnesium [Mass/Vol]on 04-27 Interpretation and review of laboratory results Normal [facility] No Panel Informationon 04-27 2h Troponin HS (Serial 2nd Troponin) 37 ng/L High NINF - 14 ng/L [facility] Interpretation and review of laboratory results Abnormal [facility] Interpretation and review of laboratory results Normal [facility] Interpretation and review of laboratory results Abnormal [facility] Lymphocytes Manual 23 [facility] Monocytes Manual 16 [facility] Neutrophils Manual 63 [facility] Interpretation and review of laboratory results Abnormal [facility] Troponin HS Serial Baseline 40 ng/L High NINF - 14 ng/L [facility] Interpretation and review of laboratory results Normal [facility] Progress Noteon 04-27-2024 Progress Note Normal [facility] VMA, URINEon 04-27-2024 CREATININE, URINE - PER 24H 564 mg/d Normal 500-1400 [facility] Comment on above: Performed By: #### L [id number] ####[facility] ([facility])[address] [place] [address] [place] Result Comment: Perf ormed By: AMEYAUP [address] [place], [place] [address]Yoribqnier Director: Miranda Dorman MD, PhDCLIA Number: [id number] Performed By: #### L [id number] ####[facility] ([facility])[address] [place] [address] [place] CREATININE, URINE - PER VOLUME 182 mg/dL Normal [facility] Comment on above: Performed By: #### L [id number] ####[facility] ([facility])[address] Performed By: #### L [id number] ####[facility] ([facility])[address] HOURS COLLECTED 24 hr Normal [facility] Comment on above: Result Comment: Per 24h calculations are provided to aid interpretation forcollections with a duration of 24 hours and an average daily urinevolume. For specimens with notable deviations in collection timeor volume, ratios of analytes to a corresponding urine creatinineconcentration may assist in result interpretation. Performed By: #### L [id number] ####[facility] ([facility])[address] Performed By: #### L [id number] ####[facility] ([facility])[address] TOTAL VOLUME 310 mL Normal [facility] Comment on above: Performed By: #### L [id number] ####[facility] ([facility])[address] Performed By: #### L [id number] ####[facility] ([facility])[address] VANILLYLMANDELIC ACID - PER 24H 1.9 mg/d Normal 0.0-7.0 [facility] Comment on above: Performed By: #### L [id number] ####[facility] ([facility])[address] VANILLYLMANDELIC ACID - PER VOLUME 6.2 mg/L Normal [facility] Comment on above: Performed By: #### L [id number] ####[facility] ([facility])[address] VANILLYLMANDELIC ACID - RATIO TO COCONUT COOKER 3 mg/gCR Normal 0-6 [facility] Comment on above: Result Comment: REFE RENCE INTERVAL: VMA, Urine mg/g CRTAccess complete set of age- and/or gender-specific referenceintervals for this test in the [facility] Test Directory([employer]).Performed By: [facility] [place], [place] [address]Xmstkcybut Director: Miranda Dorman MD, PhDCLIA Number: [id number] Performed By: #### L [id number] ####[facility] ([facility])[address] [place] [address] [place] VANILLYLMANDELIC ACID INTERPRETATION See Note Normal [facility] Comment on above: Result Comment: INTE RPRETIVE INFORMATION: Vanillylmandelic Acid (VMA), UrineVanillylmandelic acid (VMA) results are expressed as a ratio tocreatinine excretion (mg/g COCONUT COOKER). No reference interval isavailable for results reported in units of mg/L. Slight ormoderate increases in catecholamine metabolites may be due toextreme anxiety, essential hypertension, intense physicalexercise, or drug interactions. Significant increase of one ormore catecholamine metabolites (several times the upper referencelimit) is associated with an increased probability of a secretingneuroendocrine tumor.This test was developed and its performance characteristicsdetermined by [facility]. It has not been cleared orapproved by the [place] Food and Drug Administration. This test wasperformed in a CLIA certified laboratory and is intended forclinical purposes. Performed By: #### L [id number] ####[facility] ([facility])[address] [place] [address] [facility] XR Chest Single viewon 04-27 [facility] Radiology Study observation (narrative) [facility] XR Chest Single viewOrdered By: Maxx Molina on 04-27-2024 [facility] Work Phone: 36on 04-25-2024 36 Normal [facility] BASIC METABOLIC PANELon Anion gap [Moles/Vol] 5 mmol/L Normal 05-25 [facility] Comment on above: Performed By: #### L AB15 ####Maint Mechanic: VIVIAN PANTOJA ([phone])[facility] ([facility])[address] [place] [address] Calcium [Mass/Vol] 8.8 mg/dL Normal 8.8-10.0 [facility] Comment on above: Performed By: #### L AB15 ####Maint Mechanic: VIVIAN PANTOJA ([phone])[facility] ([facility])[address] [place] [address] [place] Chloride [Moles/Vol] 111 mmol/L High 98-107 [facility] Comment on above: Performed By: #### L AB15 ####Maint Mechanic: VIVIAN PANTOJA ([phone])[facility]ENTERBessy FOX [facility] ([facility])[address] [place] [address] CO2 [Moles/Vol] 22 mmol/L Low 23-31 [facility] Comment on above: Performed By: #### L AB15 ####Maint Mechanic: VIVIAN PANTOJA ([phone])[facility]ENTERBessy SIDDIQUITMAN ([facility])[address] [place] [address] Creatinine [Mass/Vol] 1.84 mg/dL High 0.57-1.11 [facility] Comment on above: Performed By: #### L AB15 ####Maint Mechanic: VIVIAN PANTOJA ([phone])[facility]ENTERBessy SIDDIQUITMAN ([facility])[address] [place] [address] [place] GLOMERULAR FILTRATION RATE ML/MIN/1.73 SQ M.PREDICTED 28.7 mL/min/1.73m*2 Low >60.0 [facility] Comment on above: Result Comment: Calc ulation based on the Chronic Kidney Disease Epidemiology Collaboration (CKD-EPI) equation refit without adjustment for race Performed By: #### L AB15 ####Maint Mechanic: VIVIAN PANTOJA ([phone])[facility]ENTERBessy SIDDIQUITMAN ([facility])[address] [place] [address] [place] Glucose [Mass/Vol] 101 mg/dL Normal 82-115 [facility] Comment on above: Performed By: #### L AB15 ####Maint Mechanic: VIVIAN PANTOJA ([phone])[facility]ENTERA RUDDY [facility] ([facility])[address] Potassium [Moles/Vol] 4.0 mmol/L Normal 3.5-5.1 [facility] Comment on above: Result Comment: [facility] potassium values may be up to 0.5 mmol/L lower than serum values. Performed By: #### L AB15 ####Maint Mechanic: VIVIAN PANTOJA ([phone])[facility]ENTERB[facility] ([facility])[address] Sodium [Moles/Vol] 138 mmol/L Normal 136-145 [facility] Comment on above: Performed By: #### L AB15 ####Maint Mechanic: VIVIAN PANTOJA ([phone])[facility]ENTERB[facility] ([facility])[address] [place] [address] Urea nitrogen [Mass/Vol] 30 mg/dL High - [facility] Comment on above: Performed By: #### L AB15 ####Maint Mechanic: VIVIAN PANTOJA ([phone])[facility]ENTERB[facility]y [facility] ([facility])[address] [place] [address] DIGOXINon 04-18-2024 Digoxin [Mass/Vol] 2.0 ng/mL Normal 0.8-2.0 [facility] Comment on above: Result Comment: LEOBARDO Gill COMMENTS:Toxicity seen at concentrations >2.0 ng/mL Performed By: #### L AB23 ####Maint Mechanic: VIVIAN PANTOJA ([phone])[facility]ENTERBessy SIDDIQUITMAN ([facility])[address] [place] [address] 04-13-2024 36 Noted; thank you. [facility] 36 [facility] 3604-06-2024 36 Placed call to shari gonzalez to discuss provider direction. Message left on voicemail to return call. Patient can also call us back if any questions. [facility] 36on 04-05-2024 36 Noted. [facility] 36 Called daughter, and left message that she is now scheduled to see Dr. Moon in [place] 04/27/24 at 9:00 am. [facility] 36 [facility] 36 [facility] 36on 04-04-2024 36 Called patient and n o answer and voice mail is full, also sent patient a [employer] message. [facility] 36 [facility] Progress Noteon 04-03-2024 Progress Note [facility] 36on 03-23-2024 36 Normal [facility] 36 Daughter called to schedule. She was recently in [facility], her heart rate was elevated, and medication was changed. She is now scheduled to see Dr. Moon 04/06/24. [facility] [id number] 03-21-2024 [id number] Patient Choice Patient Name: ALTA BAKER Date of : 1950 [facility] 36on 03-13-2024 36 [facility] 36 [facility] 36 [facility] 30on 02-22-2024 30 [facility] [id number] 02-22-2024 [id number] [facility] [id number] Spoke with patients daughter Rhiannon to discuss dc planning and dc time. She will meet the patient at [facility]. [facility] [phone] Dc to [facility] this afternoon at 4:00. Loreta messaged the facility with cherry picker operator time. Provided the nurse with report number and will notify family. [facility] [id number] [facility] [id number] [facility] CBC (HEMOGRAM)on 02-22-2024 Erythrocyte distribution width (RBC) [Ratio] 15.6 % High 11.5-15.0 [facility] Comment on above: Performed By: #### L [id number] ####Maint Mechanic: AMAN SANTOS ([phone])[facility] ([facility])[address] Hematocrit (Bld) [Volume fraction] 32.0 % Low 35.0-47.0 [facility] Comment on above: Performed By: #### L [id number] ####Maint Mechanic: AMAN MEDINAANGELA ([phone])[facility] [place] ([facility])[address] Hemoglobin (Bld) [Mass/Vol] 9.5 g/dL Low 11.7-16.0 [facility] Comment on above: Performed By: #### L [id number] ####Maint Mechanic: AMAN HEARDOMID ([phone])[facility]A [facility] ([facility])[address] IPF 10 Normal [facility] Comment on above: Performed By: #### L [id number] ####Maint Mechanic: AMAN HEARDOMID ([phone])[facility]A [facility] ([facility])[address] MCH (RBC) [Entitic mass] 27.4 pg Normal 26.0-34.0 [facility] Comment on above: Performed By: #### L [id number] ####Maint Mechanic: AMAN HEARDOMID ([phone])[facility]ENTERBessy [facility] ([facility])[address] MCHC 29.7 % Low 30.5-36.0 [facility] Comment on above: Performed By: #### L [id number] ####Maint Mechanic: AMAN HEARDOMID ([phone])[facility] [place] ([facility])[address] MCV (RBC) [Entitic vol] 92.2 fL Normal 77.0-99.0 [facility] Comment on above: Performed By: #### L [id number] ####Maint Mechanic: AMAN SANTOS ([phone])[facility]ENTERA [facility] ([facility])[address] Platelet mean volume (Bld) [Entitic vol] 11.9 fL Normal 9.0-12.7 [facility] Comment on above: Performed By: #### L AB294 ####Maint Mechanic: AMAN SANTOS ([phone])[facility]A [place] ([facility])[address] Platelets (Bld) [#/Vol] 95 10*3/uL Low 140-440 [facility] Comment on above: Performed By: #### L AB294 ####Maint Mechanic: AMAN SANTOS ([phone])[facility] ([facility])[address] RBC (Bld) [#/Vol] 3.47 10*6/uL Low 3.80-5.20 [facility] Comment on above: Performed By: #### L [id number] ####Maint Mechanic: AMAN SANTOS ([phone])[facility] ([facility])[address] WBC (Bld) [#/Vol] 10.1 10*3/uL Normal 3.6-10.7 [facility] Comment on above: Performed By: #### L [id number] ####Maint Mechanic: AMAN SANTOS ([phone])[facility] ([facility])[address] CBC panel Auto (Bld)on 02-21 Erythrocyte distribution width (RBC) [Ratio] 15.6 % High 11.5 - 15.0 % [facility] Hematocrit (Bld) [Volume fraction] 32 % Low 35.0 - 47.0 % [facility] Hemoglobin (Bld) [Mass/Vol] 9.5 g/dL Low 11.7 - 16.0 g/dL [facility] Interpretation and review of laboratory results Abnormal [facility] IPF 10 [facility] MCH (RBC) [Entitic mass] 27.4 pg 26.0 - 34.0 pg [facility] MCHC (RBC) [Mass/Vol] 29.7 % Low 30.5 - 36.0 % [facility] MCV (RBC) [Entitic vol] 92.2 fL 77.0 - 99.0 fL [facility] Platelet mean volume (Bld) [Entitic vol] 11.9 fL 9.0 - 12.7 fL [facility] Platelets (Bld) [#/Vol] 95 10*3/uL Low 140 - 440 10*3/uL [facility] RBC (Bld) [#/Vol] 3.47 10*6/uL Low 3.80 - 5.2 0 10*6/uL [facility] WBC (Bld) [#/Vol] 10.1 10*3/uL 3.6 - 10.7 10*3/uL [facility] COMPREHENSIVE METABOLIC PANE Amaury 02-22-2024 Albumin [Mass/Vol] 3.8 g/dL Normal 3.4-4.8 [facility] Comment on above: Performed By: #### L AB17 ####Maint Mechanic: AMAN SANTOS ([phone])[facility] ([facility])[address] ALP [Catalytic activity/Vol] 88 U/L Normal 40-150 [facility] Comment on above: Performed By: #### L AB17 ####Maint Mechanic: AMAN SANTOS ([phone])[facility] ([facility])[address] ALT [Catalytic activity/Vol] 16 U/L Normal <30 [facility] Comment on above: Performed By: #### L AB17 ####Maint Mechanic: AMAN SANTOS ([phone])[facility] (HL[facility])[address] Anion gap [Moles/Vol] 7 mmol/L Normal 3-13 [facility] Comment on above: Performed By: #### L AB17 ####Maint Mechanic: AMAN SANTOS ([id number])[facility] (HLAB)[address] AST [Catalytic activity/Vol] 14 U/L Normal <34 [facility] Comment on above: Performed By: #### L AB17 ####Maint Mechanic: AMAN SANTOS ([phone])[facility]JARESN (SBHLAB)[address] Bilirubin [Mass/Vol] 1.8 mg/dL High <1.2 [facility] Comment on above: Performed By: #### L AB17 ####Maint Mechanic: AMAN SANTOS ([phone])[facility] [place] (SBHLAB)[address] Calcium [Mass/Vol] 9.5 mg/dL Normal 8.8-10.0 [facility] Comment on above: Performed By: #### L AB17 ####Maint Mechanic: AMAN SANTOS ([phone])[facility] [place] (SBHLAB)[address] Chloride [Moles/Vol] 99 mmol/L Normal 98-107 [facility] Comment on above: Performed By: #### L AB17 ####Maint Mechanic: AMAN SANTOS ([id number])[facility] [place] (SBHLAB)[address] CO2 [Moles/Vol] 36 mmol/L High 23-31 [facility] Comment on above: Performed By: #### L AB17 ####Maint Mechanic: AMAN SANTOS ([phone])[facility] [place] (SBHLAB)[address] Creatinine [Mass/Vol] 0.64 mg/dL Normal 0.57-1.11 [facility] Comment on above: Performed By: #### L AB17 ####Maint Mechanic: AMAN SANTOS ([phone])[facility] [place] (SBHLAB)[address] GLOMERULAR FILTRATION RATE ML/MIN/1.73 SQ M.PREDICTED >90.0 Normal >60.0 [facility] Comment on above: Result Comment: Calc ulation based on the Chronic Kidney Disease Epidemiology Collaboration (CKD-EPI) equation refit without adjustment for race Performed By: #### L AB17 ####Maint Mechanic: AMAN SANTOS ([phone])[facility]ENTERBessy MARTINEZISAMARN (SBHLAB)[address] Glucose [Mass/Vol] 111 mg/dL Normal 82-115 [facility] Comment on above: Performed By: #### L AB17 ####Maint Mechanic: AMAN SANTOS ([phone])[facility] (SBHLAB)[address] Potassium [Moles/Vol] 3.9 mmol/L Normal 3.5-5.1 [facility] Comment on above: Result Comment: [facility] potassium values may be up to 0.5 mmol/L lower than serum values. Performed By: #### L AB17 ####Maint Mechanic: AMAN SANTOS ([phone])[facility] (SBHLAB)[address] Protein [Mass/Vol] 6.1 g/dL Low 6.4-8.3 [facility] Comment on above: Performed By: #### L AB17 ####Maint Mechanic: AMAN SANTOS ([phone])[facility] (SBHLAB)[address] Sodium [Moles/Vol] 142 mmol/L Normal 136-145 [facility] Comment on above: Performed By: #### L AB17 ####Maint Mechanic: AMAN SANTOS ([phone])[facility] (SBHLAB)[address] Urea nitrogen [Mass/Vol] 11 mg/dL Normal 9-23 [facility] Comment on above: Performed By: #### L AB17 ####Maint Mechanic: AMAN SANTOS ([phone])[facility] (SBHLAB)[address] Comprehensive metabolic 1998 panelon 02-22-2024 Albumin [Mass/Vol] 3.8 g/dL 3.4 - 4.8 g/dL [facility] ALP [Catalytic activity/Vol] 88 U/L 40 - 150 U/L [facility] ALT [Catalytic activity/Vol] 16 U/L NINF - 30 U/L [facility] Anion gap [Moles/Vol] 7 mmol/L 3 - 13 mmol/L [facility] AST [Catalytic activity/Vol] 14 U/L NINF - 34 U/L [facility] Bilirubin [Mass/Vol] 1.8 mg/dL High NINF - 1.2 mg/dL [facility] Calcium [Mass/Vol] 9.5 mg/dL 8.8 - 10. 0 mg/dL [facility] Chloride [Moles/Vol] 99 mmol/L 98 - 10 7 mmol/L [facility] CO2 [Moles/Vol] 36 mmol/L High 23 - 31 mmol/L [facility] Creatinine [Mass/Vol] 0.64 mg/dL 0.57 - 1.11 mg/dL [facility] GFR/1.73 sq M.predicted (S/P/Bld) [Vol rate/Area] - PINF [facility] Comment on above: Calculation based on the Chronic Kidney Disease Epidemiology Collaboration (CKD-EPI) equation refit without adjustment for race Glucose [Mass/Vol] 111 mg/dL 82 - 115 mg/dL [facility] Interpretation and review of laboratory results Abnormal [facility] Potassium [Moles/Vol] 3.9 mmol/L 3.5 - 5.1 mmol/L [facility] Comment on above: Plasma potassium imer ues may be up to 0.5 mmol/L lower than serum values. Protein [Mass/Vol] 6.1 g/dL Low 6.4 - 8.3 g/dL [facility] Sodium [Moles/Vol] 142 mmol/L 136 - 145 mmol/L [facility] Urea nitrogen [Mass/Vol] 11 mg/dL 9 - 23 mg/dL [facility] DIGOXINon 02-22-2024 Digoxin [Mass/Vol] 1.2 ng/mL Normal 0.8-2.0 [facility] Comment on above: Result Comment: LEOBARDO Gill COMMENTS:Toxicity seen at concentrations >2.0 ng/mL Performed By: #### L AB23 ####Maint Mechanic: AMAN SANTOS ([phone])[facility] (SBHLAB)[address] Laboratory - Drug toxicology on 02-22-2024 Digoxin [Mass/Vol] 1.2 ng/mL 0.8 - 2.0 ng/mL [facility] No Panel Informationon 02-21 Interpretation and review of laboratory results Normal [facility] Toxicity seen at concentrations >2.0 ng/mL [facility] Progress Noteon 02-22-2024 Progress Note Normal [facility] Progress Note Normal [facility] Progress Note Normal [facility] [id number] 02-21-2024 [id number] Normal [facility] CBC (HEMOGRAM)on 02-21-2024 Erythrocyte distribution width (RBC) [Ratio] 15.6 % High 11.5-15.0 [facility] Comment on above: Performed By: #### L [id number] ####Maint Mechanic: AMAN SANTOS ([phone])[facility] (SBAB)[address] [place] [address] Hematocrit (Bld) [Volume fraction] 32.7 % Low 35.0-47.0 [facility] Comment on above: Performed By: #### L [id number] ####Maint Mechanic: AMAN SANTOS ([id number])[facility] ([facility])[address] [place] [address] Hemoglobin (Bld) [Mass/Vol] 9.5 g/dL Low 11.7-16.0 [facility] Comment on above: Performed By: #### L AB294 ####Maint Mechanic: AMAN SANTOS ([phone])[facility] (SBHLAB)[address] [place] [address] [place] IPF 11 Normal [facility] Comment on above: Performed By: #### L [id number] ####Maint Mechanic: AMAN SANTOS ([id number])[facility] (SBHLAB)[address] MCH (RBC) [Entitic mass] 27.2 pg Normal 26.0-34.0 [facility] Comment on above: Performed By: #### L AB294 ####Maint Mechanic: AMAN SANTOS ([id number])[facility] (SBHLAB)[address] MCHC 29.1 % Low 30.5-36.0 [facility] Comment on above: Performed By: #### L [id number] ####Maint Mechanic: AMAN SANTOS ([phone])[facility] [place] (SBHLAB)[address] MCV (RBC) [Entitic vol] 93.7 fL Normal 77.0-99.0 [facility] Comment on above: Performed By: #### L AB294 ####Maint Mechanic: AMAN SANTOS ([id number])[facility]ENTERBessy [place]ZERT[facility] (SBHLAB)[address] Platelet mean volume (Bld) [Entitic vol] 12.6 fL Normal 9.0-12.7 [facility] Comment on above: Performed By: #### L AB294 ####Maint Mechanic: AMAN SANTOS ([id number])[facility]ENTERB[facility] [place] (SBHLAB)[address] [place] [address] [place] Platelets (Bld) [#/Vol] 91 10*3/uL Low 140-440 [facility] Comment on above: Performed By: #### L AB294 ####Maint Mechanic: AMAN SANTOS ([id number])[facility] [place] (SBHLAB)[address] RBC (Bld) [#/Vol] 3.49 10*6/uL Low 3.80-5.20 [facility] Comment on above: Performed By: #### L AB294 ####Maint Mechanic: AMAN SANTOS ([id number])[facility] [place] (SBHLAB)[address] WBC (Bld) [#/Vol] 11.8 10*3/uL High 3.6-10.7 [facility] Comment on above: Performed By: #### L AB294 ####Maint Mechanic: AMAN SANTOS ([id number])[facility] (SBAB)[address] CBC panel Auto (Bld)Ordered By: Luis Hill on 02-21-2024 Erythrocyte distribution width (RBC) [Ratio] 15.6 % High 11.5 - 15.0 % [facility] Hematocrit (Bld) [Volume fraction] 32.7 % Low 35.0 - 47.0 % [facility] Hemoglobin (Bld) [Mass/Vol] 9.5 g/dL Low 11.7 - 16.0 g/dL [facility] Interpretation and review of laboratory results Abnormal [facility] IPF 11 [facility] MCH (RBC) [Entitic mass] 27.2 pg 26.0 - 34.0 pg [facility] MCHC (RBC) [Mass/Vol] 29.1 % Low 30.5 - 36.0 % [facility] MCV (RBC) [Entitic vol] 93.7 fL 77.0 - 99.0 fL [facility] Platelet mean volume (Bld) [Entitic vol] 12.6 fL 9.0 - 12.7 fL [facility] Platelets (Bld) [#/Vol] 91 10*3/uL Low 140 - 440 10*3/uL [facility] RBC (Bld) [#/Vol] 3.49 10*6/uL Low 3.80 - 5.2 0 10*6/uL [facility] WBC (Bld) [#/Vol] 11.8 10*3/uL High 3.6 - 10.7 10*3/uL [facility] COMPREHENSIVE METABOLIC PANE Amaury 02-21-2024 Albumin [Mass/Vol] 3.6 g/dL Normal 3.4-4.8 [facility] Comment on above: Performed By: #### L AB17 ####Maint Mechanic: AMAN SANTOS ([phone])[facility]ENTERBessy JUANYOSELYN (SBAB)[address] ALP [Catalytic activity/Vol] 80 U/L Normal 40-150 [facility] Comment on above: Performed By: #### L AB17 ####Maint Mechanic: AMAN HEARDOMID ([phone])[facility] [place] (SBHLAB)[address] ALT [Catalytic activity/Vol] 17 U/L Normal <30 [facility] Comment on above: Performed By: #### L AB17 ####Maint Mechanic: AMAN HEARDOMID ([id number])[facility] [place] (SBHLAB)[address] Anion gap [Moles/Vol] 5 mmol/L Normal 3-13 [facility] Comment on above: Performed By: #### L AB17 ####Maint Mechanic: AMAN HEARDOMID ([id number])[facility] [place] (SBHLAB)[address] AST [Catalytic activity/Vol] 13 U/L Normal <34 [facility] Comment on above: Performed By: #### L AB17 ####Maint Mechanic: AMAN HEARDOMID ([id number])[facility] [place] (SBHLAB)[address] Bilirubin [Mass/Vol] 1.3 mg/dL High <1.2 [facility] Comment on above: Performed By: #### L AB17 ####Maint Mechanic: AMAN HEARDOMID ([phone])[facility] [place] (SBHLAB)[address] Calcium [Mass/Vol] 9.5 mg/dL Normal 8.8-10.0 [facility] Comment on above: Performed By: #### L AB17 ####Maint Mechanic: AMAN MEDINAMONSEOMID ([id number])[facility] [place] (SBHLAB)[address] [place] [address] [place] Chloride [Moles/Vol] 100 mmol/L Normal 98-107 [facility] Comment on above: Performed By: #### L AB17 ####Maint Mechanic: AMAN HEARDOMID ([id number])[facility] [place] (SBHLAB)[address] [place] [address] [place] CO2 [Moles/Vol] 38 mmol/L High 23-31 [facility] Comment on above: Performed By: #### L AB17 ####Maint Mechanic: AMAN SANTOS ([id number])[facility] Creatinine [Mass/Vol] 0.64 mg/dL Normal 0.57-1.11 [facility] Comment on above: Performed By: #### L AB17 ####Maint Mechanic: AMAN SANTOS ([phone])[facility] ([facility])[address] GLOMERULAR FILTRATION RATE ML/MIN/1.73 SQ M.PREDICTED >90.0 Normal >60.0 [facility] Comment on above: Result Comment: Calc ulation based on the Chronic Kidney Disease Epidemiology Collaboration (CKD-EPI) equation refit without adjustment for race Performed By: #### L AB17 ####Maint Mechanic: AMAN SANTOS ([phone])[facility])[address] Glucose [Mass/Vol] 131 mg/dL High 82-115 [facility] Comment on above: Performed By: #### L AB17 ####Maint Mechanic: AMAN SANTOS ([phone])[facility] ([facility])[address] [place] [address] Potassium [Moles/Vol] 3.9 mmol/L Normal 3.5-5.1 [facility] Comment on above: Result Comment: [facility] potassium values may be up to 0.5 mmol/L lower than serum values. Performed By: #### L AB17 ####Maint Mechanic: AMAN SANTOS ([id number])[facility] ([facility])[address] Protein [Mass/Vol] 5.8 g/dL Low 6.4-8.3 [facility] Comment on above: Performed By: #### L AB17 ####Maint Mechanic: AMAN SANTOS ([phone])[facility]ENTERBessy DIETRICH (SBHLAB)[address] Sodium [Moles/Vol] 143 mmol/L Normal 136-145 [facility] Comment on above: Performed By: #### L AB17 ####Maint Mechanic: AMAN SANTOS ([id number])[facility]ENTERBessy [facility] (SBHLAB)[address] Urea nitrogen [Mass/Vol] 13 mg/dL Normal 9-23 [facility] Comment on above: Performed By: #### L AB17 ####Maint Mechanic: AMAN SANTOS ([id number])[facility]ENTERB[facility] (SBHLAB)[address] Comprehensive metabolic 1998 panelon 02-21-2024 Albumin [Mass/Vol] 3.6 g/dL 3.4 - 4.8 g/dL [facility] ALP [Catalytic activity/Vol] 80 U/L 40 - 150 U/L [facility] ALT [Catalytic activity/Vol] 17 U/L NINF - 30 U/L [facility] Anion gap [Moles/Vol] 5 mmol/L 3 - 13 mmol/L [facility] AST [Catalytic activity/Vol] 13 U/L NINF - 34 U/L [facility] Bilirubin [Mass/Vol] 1.3 mg/dL [facility] mg/dL [facility] Calcium [Mass/Vol] 9.5 mg/dL 8.8 - 10. 0 mg/dL [facility] Chloride [Moles/Vol] 100 mmol/L 98 - 10 7 mmol/L [facility] CO2 [Moles/Vol] 38 mmol/L High 23 - 31 mmol/L [facility] Creatinine [Mass/Vol] 0.64 mg/dL 0.57 - 1.11 mg/dL [facility] GFR/1.73 sq M.predicted (S/P/Bld) [Vol rate/Area] - PINF [facility] Comment on above: Calculation based on the Chronic Kidney Disease Epidemiology Collaboration (CKD-EPI) equation refit without adjustment for race Glucose [Mass/Vol] 131 mg/dL High 82 - 115 mg/dL [facility] Interpretation and review of laboratory results Abnormal [facility] Potassium [Moles/Vol] 3.9 mmol/L 3.5 - 5.1 mmol/L [facility] Comment on above: Plasma potassium imer ues may be up to 0.5 mmol/L lower than serum values. Protein [Mass/Vol] 5.8 g/dL Low 6.4 - 8.3 g/dL [facility] Sodium [Moles/Vol] 143 mmol/L 136 - 145 mmol/L [facility] Urea nitrogen [Mass/Vol] 13 mg/dL 9 - 23 mg/dL [facility] Consulton 02-21-2024 Consult Normal [facility] Progress Noteon 02-21-2024 Progress Note Normal [facility] Progress Note Normal [facility] Progress Note Normal [facility] Progress Note Normal [facility] Progress Note Nutrition update completed. Chart reviewed. Patient continues as a level 1. Normal [facility] 30on 02-20-2024 30 Normal [facility] 30 Normal [facility] [id number] 02-20-2024 [id number] Reviewed loreta sotomayor auth is still pending. Normal [facility] Bacteria identified Cx Nom ( Bld)on 02-20-2024 Interpretation and review of laboratory results Normal [facility] Blood Collection Sit e: Left Antecubital [facility] Blood Collection Sit e: Right Hand [facility] CBC (HEMOGRAM)on 02-20-2024 Erythrocyte distribution width (RBC) [Ratio] 15.9 % High 11.5-15.0 [facility] Comment on above: Performed By: #### L [id number] ####Maint Mechanic: AMAN SANTOS ([id number])[facility] ([facility])[address] [place] [address] Hematocrit (Bld) [Volume fraction] 35.6 % Normal 35.0-47.0 [facility] Comment on above: Performed By: #### L [id number] ####Maint Mechanic: AMAN SANTOS ([phone])[facility])[address] [place] [address] Hemoglobin (Bld) [Mass/Vol] 10.5 g/dL Low 11.7-16.0 [facility] Comment on above: Performed By: #### L [id number] ####Maint Mechanic: AMAN SANTOS ([id number])LJBessy MARTINEZYOSELYN (SBHLAB)[address] MCH (RBC) [Entitic mass] 27.6 pg Normal 26.0-34.0 [facility] Comment on above: Performed By: #### L AB294 ####Maint Mechanic: AMAN SANTOS ([id number])[facility]ENTERBessy MARTINEZYOSELYN (SBHLAB)[address] MCHC 29.5 % Low 30.5-36.0 [facility] Comment on above: Performed By: #### L AB294 ####Maint Mechanic: AMAN SANTOS ([id number])[facility]ENTERBessy MARTINEZYOSELYN (SBHLAB)[address] MCV (RBC) [Entitic vol] 93.4 fL Normal 77.0-99.0 [facility] Comment on above: Performed By: #### L AB294 ####Maint Mechanic: AMAN SANTOS ([phone])[facility]ENTERB[facility]y MARTINEZYOSELYN (SBHLAB)[address] Platelet mean volume (Bld) [Entitic vol] 12.1 fL Normal 9.0-12.7 [facility] Comment on above: Performed By: #### L AB294 ####Maint Mechanic: AMAN SANTOS ([id number])[facility]ENTERBessy MARTINEZYOSELYN (SBHLAB)[address] [place] [address] [place] Platelets (Bld) [#/Vol] 110 10*3/uL Low 140-440 [facility] Comment on above: Performed By: #### L [id number] ####Maint Mechanic: AMAN SANTOS ([phone])[facility]ENTERBessy [facility]ERSi[facility] (SBHLAB)[address] [place] [address] [place] RBC (Bld) [#/Vol] 3.81 10*6/uL Normal 3.80-5.20 [facility] Comment on above: Performed By: #### L [id number] ####Maint Mechanic: AMANAGA MEDINALeannOMID ([phone])[facility] (SBHLAB)[address] WBC (Bld) [#/Vol] 12.9 10*3/uL High 3.6-10.7 [facility] Comment on above: Performed By: #### L [id number] ####Maint Mechanic: AMAN HEARDOMID ([id number])[facility] (SBHLAB)[address] CBC panel Auto (Bld)Ordered By: Krystal Kraft on 02-20-2024 Erythrocyte distribution width (RBC) [Ratio] 15.9 % High 11.5 - 15.0 % [facility] Hematocrit (Bld) [Volume fraction] 35.6 % 35.0 - 47.0 % [facility] Hemoglobin (Bld) [Mass/Vol] 10.5 g/dL Low 11.7 - 16.0 g/dL [facility] Interpretation and review of laboratory results Abnormal [facility] MCH (RBC) [Entitic mass] 27.6 pg 26.0 - 34.0 pg [facility] MCHC (RBC) [Mass/Vol] 29.5 % Low 30.5 - 36.0 % [facility] MCV (RBC) [Entitic vol] 93.4 fL 77.0 - 99.0 fL [facility] Platelet mean volume (Bld) [Entitic vol] 12.1 fL 9.0 - 12.7 fL [facility] Platelets (Bld) [#/Vol] 110 10*3/uL Low 140 - 440 10*3/uL [facility] RBC (Bld) [#/Vol] 3.81 10*6/uL 3.80 - 5.2 0 10*6/uL [facility] WBC (Bld) [#/Vol] 12.9 10*3/uL High 3.6 - 10.7 10*3/uL [facility] COMPREHENSIVE METABOLIC PANE Amaury 02-20-2024 Albumin [Mass/Vol] 4.0 g/dL Normal 3.4-4.8 [facility] Comment on above: Performed By: #### L AB17 ####Maint Mechanic: AMAN SANTOS ([id number])[facility] (SBHLAB)[address] ALP [Catalytic activity/Vol] 90 U/L Normal 40-150 [facility] Comment on above: Performed By: #### L AB17 ####Maint Mechanic: AMAN SANTOS ([id number])[facility] (SBHLAB)[address] ALT [Catalytic activity/Vol] 18 U/L Normal <30 [facility] Comment on above: Performed By: #### L AB17 ####Maint Mechanic: AMAN SANTOS ([id number])[facility] (HLAB)[address] Anion gap [Moles/Vol] 7 mmol/L Normal 3-13 [facility] Comment on above: Performed By: #### L AB17 ####Maint Mechanic: AMAN SANTOS ([id number])[facility] (HLAB)[address] AST [Catalytic activity/Vol] 15 U/L Normal <34 [facility] Comment on above: Performed By: #### L AB17 ####Maint Mechanic: AMAN SANTOS ([phone])[facility] (SBHLAB)[address] Bilirubin [Mass/Vol] 1.6 mg/dL High <1.2 [facility] Comment on above: Performed By: #### L AB17 ####Maint Mechanic: AMAN SANTOS ([phone])[facility] (HLAB)[address] Calcium [Mass/Vol] 10.1 mg/dL High 8.8-10.0 [facility] Comment on above: Performed By: #### L AB17 ####Maint Mechanic: AMAN SANTOS ([phone])[facility]ENTERBessy MIJARESN (SBHLAB)[address] Chloride [Moles/Vol] 100 mmol/L Normal 98-107 [facility] Comment on above: Performed By: #### L AB17 ####Maint Mechanic: AMAN MEDINAANGELA ([phone])[facility]ENTERBessy [facility] (SBHLAB)[address] CO2 [Moles/Vol] 37 mmol/L High 23-31 [facility] Comment on above: Performed By: #### L AB17 ####Maint Mechanic: AMAN HEARDOMID ([phone])[facility]ENTERB[facility]y [facility] (SBHLAB)[address] Creatinine [Mass/Vol] 0.69 mg/dL Normal 0.57-1.11 [facility] Comment on above: Performed By: #### L AB17 ####Maint Mechanic: AMAN SANTOS ([phone])[facility] (SBHLAB)[address] GLOMERULAR FILTRATION RATE ML/MIN/1.73 SQ M.PREDICTED >90.0 Normal >60.0 [facility] Comment on above: Result Comment: Calc ulation based on the Chronic Kidney Disease Epidemiology Collaboration (CKD-EPI) equation refit without adjustment for race Performed By: #### L AB17 ####Maint Mechanic: AMAN SANTOS ([id number])[facility]ENTERBessy [facility] (SBHLAB)[address] [place] [address] [place] Glucose [Mass/Vol] 118 mg/dL High 82-115 [facility] Comment on above: Performed By: #### L AB17 ####Maint Mechanic: AMAN SANTOS ([phone])[facility] (SBHLAB)[address] [place] [address] [place] Potassium [Moles/Vol] 4.0 mmol/L Normal 3.5-5.1 [facility] Comment on above: Result Comment: [facility] potassium values may be up to 0.5 mmol/L lower than serum values. Performed By: #### L AB17 ####Maint Mechanic: AMAN TOM ([id number])[facility]A DY[facility]ANN (SBHLAB)[address] Protein [Mass/Vol] 6.4 g/dL Normal 6.4-8.3 [facility] Comment on above: Performed By: #### L AB17 ####Maint Mechanic: AMAN MEDINAANGELA ([phone])[facility] [place] (SBHLAB)[address] Sodium [Moles/Vol] 144 mmol/L Normal 136-145 [facility] Comment on above: Performed By: #### L AB17 ####Maint Mechanic: AMAN MEDINAAGNELA ([phone])[facility] [place] (SBHLAB)[address] Urea nitrogen [Mass/Vol] 16 mg/dL Normal 9-23 [facility] Comment on above: Performed By: #### L AB17 ####Maint Mechanic: AMAN TOM ([id number])[facility] [place] ([facility])[address] Comprehensive metabolic 1998 panelon 02-20-2024 Albumin [Mass/Vol] 4 g/dL 3.4 - 4.8 g/dL [facility] ALP [Catalytic activity/Vol] 90 U/L 40 - 150 U/L [facility] ALT [Catalytic activity/Vol] 18 U/L NINF - 30 U/L [facility] Anion gap [Moles/Vol] 7 mmol/L 3 - 13 mmol/L [facility] AST [Catalytic activity/Vol] 15 U/L NINF - 34 U/L [facility] Bilirubin [Mass/Vol] 1.6 mg/dL High NINF - 1.2 mg/dL [facility] Calcium [Mass/Vol] 10.1 mg/dL High 8.8 - 10. 0 mg/dL [facility] Chloride [Moles/Vol] 100 mmol/L 98 - 10 7 mmol/L [facility] CO2 [Moles/Vol] 37 mmol/L High 23 - 31 mmol/L [facility] [facility] Creatinine [Mass/Vol] 0.69 mg/dL 0.57 - 1.11 mg/dL [facility] GFR/1.73 sq M.predicted (S/P/Bld) [Vol rate/Area] - PINF [facility] Comment on above: Calculation based on the Chronic Kidney Disease Epidemiology Collaboration (CKD-EPI) equation refit without adjustment for race Glucose [Mass/Vol] 118 mg/dL High 82 - 115 mg/dL [facility] Interpretation and review of laboratory results Abnormal [facility] Potassium [Moles/Vol] 4 mmol/L 3.5 - 5.1 mmol/L [facility] Comment on above: Plasma potassium imer ues may be up to 0.5 mmol/L lower than serum values. Protein [Mass/Vol] 6.4 g/dL 6.4 - 8.3 g/dL [facility] Sodium [Moles/Vol] 144 mmol/L 136 - 145 mmol/L [facility] Urea nitrogen [Mass/Vol] 16 mg/dL 9 - 23 mg/dL [facility] - Microbiology an d Antimicrobial susceptibilityon 02-20-2024 Bacteria identified Cx Nom (Bld) No growth at 5 days [facility] Progress Noteon 02-20-2024 Progress Note Normal [facility] Progress Note Normal [facility] Progress Note Normal [facility] Progress Note Normal [facility] 30on 02-19-2024 30 Normal [facility] 30 Normal [facility] Nursing Noteon 02-19-2024 Nursing Note 0815- Daughter and physician at bedside. Patient hesitant to take any medications at this time. States we are trying to kill her. Medications explained. Showed medications to patient. Patient agreeable to take medications. Tanika Weiss RN 02/19/2024 Normal [facility] Nursing Note Normal [facility] Nursing Note Normal [facility] Progress Noteon 02-19-2024 Progress Note Normal [facility] Progress Note Normal [facility] 30on 02-18-2024 30 Normal [facility] [id number] 02-18-2024 [id number] Normal [facility] [id number] Normal [facility] [id number] Normal [facility] [id number] Normal [facility] CBC W Auto Differential pane l (Bld)on 02-18-2024 Erythrocyte distribution width (RBC) [Ratio] 16.1 % High 11.5 - 15.0 % [facility] Hematocrit (Bld) [Volume fraction] 34.1 % Low 35.0 - 47.0 % [facility] Hemoglobin (Bld) [Mass/Vol] 9.9 g/dL Low 11.7 - 16.0 g/dL [facility] MCH (RBC) [Entitic mass] 27.6 pg 26.0 - 34.0 pg [facility] MCHC (RBC) [Mass/Vol] 29 % Low 30.5 - 36.0 % [facility] MCV (RBC) [Entitic vol] 95 fL 77.0 - 99.0 fL [facility] Platelet mean volume (Bld) [Entitic vol] 12.6 fL 9.0 - 12.7 fL [facility] Platelets (Bld) [#/Vol] 109 10*3/uL Low 140 - 440 10*3/uL [facility] RBC (Bld) [#/Vol] 3.59 10*6/uL Low 3.80 - 5.2 0 10*6/uL [facility] WBC (Bld) [#/Vol] 14.4 10*3/uL High 3.6 - 10.7 10*3/uL [facility] CBC WITH AUTO DIFFERENTIALon 02-18-2024 Erythrocyte distribution width (RBC) [Ratio] 16.1 % High 11.5-15.0 [facility] Comment on above: Performed By: #### L [id number], [id number] ####Maint Mechanic: AMAN SANTOS ([phone])[facility] ([facility])[address] [place] [address] Hematocrit (Bld) [Volume fraction] 34.1 % Low 35.0-47.0 [facility] Comment on above: Performed By: #### L [id number], [id number] ####Maint Mechanic: AMAN SANTOS ([phone])[facility] ([facility])[address] Hemoglobin (Bld) [Mass/Vol] 9.9 g/dL Low 11.7-16.0 [facility] Comment on above: Performed By: #### L [id number], [id number] ####Maint Mechanic: AMAN SANTOS ([phone])[facility] [place] ([facility])[address] MCH (RBC) [Entitic mass] 27.6 pg Normal 26.0-34.0 [facility] Comment on above: Performed By: #### L [id number], [id number] ####Maint Mechanic: AMAN SANTOS ([phone])[facility]ENTERBessy [facility]ZUN[facility]ITAL[facility] ([facility])[address] MCHC 29.0 % Low 30.5-36.0 [facility] Comment on above: Performed By: #### L [id number], [id number] ####Maint Mechanic: AMAN SANTOS ([phone])[facility] ([facility])[address] MCV (RBC) [Entitic vol] 95.0 fL Normal 77.0-99.0 [facility] Comment on above: Performed By: #### L [id number], [id number] ####Maint Mechanic: AMAN SANTOS ([phone])[facility]ENTERBessy [facility] ([facility])[address] Platelet mean volume (Bld) [Entitic vol] 12.6 fL Normal 9.0-12.7 [facility] Comment on above: Performed By: #### L [id number], [id number] ####Maint Mechanic: AMAN SANTOS ([phone])[facility] [place] ([facility])[address] Platelets (Bld) [#/Vol] 109 10*3/uL Low 140-440 [facility] Comment on above: Performed By: #### L [id number], [id number] ####Maint Mechanic: AMAN SANTOS ([phone])[facility] ([facility])[address] RBC (Bld) [#/Vol] 3.59 10*6/uL Low 3.80-5.20 [facility] Comment on above: Performed By: #### L [id number], [id number] ####Maint Mechanic: AMAN SANTOS ([phone])[facility] [place] ([facility])[address] WBC (Bld) [#/Vol] 14.4 10*3/uL High 3.6-10.7 [facility] Comment on above: Performed By: #### L [id number], [id number] ####Maint Mechanic: AMAN SANTOS ([phone])[facility] [place] ([facility])[address] COMPREHENSIVE METABOLIC PANE Amaury 02-18-2024 Albumin [Mass/Vol] 3.7 g/dL Normal 3.4-4.8 [facility] Comment on above: Performed By: #### L [id number] ####Maint Mechanic: AMAN SANTOS ([phone])[facility] [place] ([facility])[address] ALP [Catalytic activity/Vol] 81 U/L Normal 40-150 [facility] Comment on above: Performed By: #### L [id number] ####Maint Mechanic: AMAN SANTOS ([phone])[facility] [place] ([facility])[address] ALT [Catalytic activity/Vol] 15 U/L Normal <30 [facility] Comment on above: Performed By: #### L [id number] ####Maint Mechanic: AMAN SANTOS ([phone])[facility] [place] ([facility])[address] Anion gap [Moles/Vol] 8 mmol/L Normal 3-13 [facility] Comment on above: Performed By: #### L [id number] ####Maint Mechanic: AMAN SANTOS ([phone])[facility] [place] ([facility])[address] AST [Catalytic activity/Vol] 14 U/L Normal <34 [facility] Comment on above: Performed By: #### L [id number] ####Maint Mechanic: AMAN SANTOS ([phone])[facility] [place] ([facility])[address] Bilirubin [Mass/Vol] 1.2 mg/dL High <1.2 [facility] Comment on above: Performed By: #### L [id number] ####Maint Mechanic: AMAN SANTOS ([phone])[facility] ([facility])[address] Calcium [Mass/Vol] 9.2 mg/dL Normal 8.8-10.0 [facility] Comment on above: Performed By: #### L [id number] ####Maint Mechanic: AMAN SANTOS ([phone])[facility] ([facility])[address] Chloride [Moles/Vol] 101 mmol/L Normal 98-107 [facility] Comment on above: Performed By: #### L [id number] ####Maint Mechanic: AMAN SANTOS ([phone])[facility] ([facility])[address] CO2 [Moles/Vol] 34 mmol/L High 23-31 [facility] Comment on above: Performed By: #### L [id number] ####Maint Mechanic: AMAN SANTOS ([phone])[facility] [place] ([facility])[address] [place] [address] [place] Creatinine [Mass/Vol] 0.64 mg/dL Normal 0.57-1.11 [facility] Comment on above: Performed By: #### L [id number] ####Maint Mechanic: AMAN SANTOS ([phone])[facility] ([facility])[address] GLOMERULAR FILTRATION RATE ML/MIN/1.73 SQ M.PREDICTED >90.0 Normal >60.0 [facility] Comment on above: Result Comment: Calc ulation based on the Chronic Kidney Disease Epidemiology Collaboration (CKD-EPI) equation refit without adjustment for race Performed By: #### L [id number] ####Maint Mechanic: AMAN SANTOS ([phone])[facility]ENTERBessy [place] ([facility])[address] Glucose [Mass/Vol] 116 mg/dL High 82-115 [facility] Comment on above: Performed By: #### L [id number] ####Maint Mechanic: AMAN SANTOS ([phone])[facility] [place] ([facility])[address] Potassium [Moles/Vol] 3.7 mmol/L Normal 3.5-5.1 [facility] Comment on above: Result Comment: [facility] potassium values may be up to 0.5 mmol/L lower than serum values. Performed By: #### L [id number] ####Maint Mechanic: AMAN SANTOS ([phone])[facility] ([facility])[address] Protein [Mass/Vol] 6.0 g/dL Low 6.4-8.3 [facility] Comment on above: Performed By: #### L [id number] ####Maint Mechanic: AMAN SANTOS ([phone])[facility] ([facility])[address] Sodium [Moles/Vol] 143 mmol/L Normal 136-145 [facility] Comment on above: Performed By: #### L [id number] ####Maint Mechanic: AMAN SANTOS ([phone])[facility] ([facility])[address] Urea nitrogen [Mass/Vol] 14 mg/dL Normal 9-23 [facility] Comment on above: Performed By: #### L [id number] ####Maint Mechanic: AMAN SANTOS ([phone])[facility] ([facility])[address] Comprehensive metabolic 1998 panelon 02-18-2024 Albumin [Mass/Vol] 3.7 g/dL 3.4 - 4.8 g/dL [facility] ALP [Catalytic activity/Vol] 81 U/L 40 - 150 U/L [facility] ALT [Catalytic activity/Vol] 15 U/L NINF - 30 U/L [facility] Anion gap [Moles/Vol] 8 mmol/L 3 - 13 mmol/L [facility] AST [Catalytic activity/Vol] 14 U/L NINF - 34 U/L [facility] Bilirubin [Mass/Vol] 1.2 mg/dL High NINF - 1.2 mg/dL [facility] Calcium [Mass/Vol] 9.2 mg/dL 8.8 - 10. 0 mg/dL [facility] Chloride [Moles/Vol] 101 mmol/L 98 - 10 7 mmol/L [facility] CO2 [Moles/Vol] 34 mmol/L High 23 - 31 mmol/L [facility] Creatinine [Mass/Vol] 0.64 mg/dL 0.57 - 1.11 mg/dL [facility] GFR/1.73 sq M.predicted (S/P/Bld) [Vol rate/Area] - PINF [facility] Comment on above: Calculation based on the Chronic Kidney Disease Epidemiology Collaboration (CKD-EPI) equation refit without adjustment for race Glucose [Mass/Vol] 116 mg/dL High 82 - 115 mg/dL [facility] Interpretation and review of laboratory results Abnormal [facility] Potassium [Moles/Vol] 3.7 mmol/L 3.5 - 5.1 mmol/L [facility] Comment on above: Plasma potassium imer ues may be up to 0.5 mmol/L lower than serum values. Protein [Mass/Vol] 6 g/dL Low 6.4 - 8.3 g/dL [facility] Sodium [Moles/Vol] 143 mmol/L 136 - 145 mmol/L [facility] Urea nitrogen [Mass/Vol] 14 mg/dL 9 - 23 mg/dL [facility] - Hematology and Cell countson 02-18-2024 Band form neutrophils (Bld) [#/Vol] 0.1 10*3/uL High NINF - 0.0 10*3/uL [facility] Band form neutrophils/100 WBC (Bld) 1 % High NINF - 0 % [facility] Eosinophils (Bld) [#/Vol] 0.1 10*3/uL 0.0 - 0.5 10*3/uL [facility] Eosinophils/100 WBC (Bld) 1 % 0 - 6 % [facility] Hypochromia Ql (Bld) Moderate Abnormal (none) [facility] Lymphocytes (Bld) [#/Vol] 0.9 10*3/uL Low 1.0 - 4.3 10*3/uL [facility] Lymphocytes/100 WBC (Bld) 6 % Low 15 - 45 % [facility] Monocytes (Bld) [#/Vol] 2.9 10*3/uL High 0.0 - 0.9 10*3/uL [facility] Monocytes/100 WBC (Bld) 20 % High 5 - 13 % [facility] Neutrophils (Bld) [#/Vol] 10.4 10*3/uL High 1.8 - 7.5 10*3/uL [facility] Poikilocytosis LM Ql (Bld) Slight Abnormal (none) [facility] RBC morphology finding Nom (Bld) abnormal [facility] Segmented neutrophils/100 WBC (Bld) 71 % 38 - 82 % [facility] Stomatocytes LM Ql (Bld) Moderate Abnormal (none) [facility] MANUAL DIFFERENTIAL (CELLAVI TANYA)on 02-18-2024 BAND NEUTROPHILS TOTAL PER COUNTED LEUKOCYTES BY MANUAL COUNT 1 Normal [facility] Comment on above: Performed By: #### L [id number], [id number] ####Maint Mechanic: AMAN SANTOS ([phone])[facility])[address] [place] [address] BANDS (10*3/UL) IN BLOOD-CELLAVISION 0.1 10*3/uL High <=0.0 [facility] Comment on above: Performed By: #### L [id number], [id number] ####Maint Mechanic: AMAN SANTOS ([phone])[facility] ([facility])[address] BASOPHILS TOTAL PER COUNTED LEUKOCYTES BY MANUAL COUNT Normal [facility] Comment on above: Performed By: #### L [id number], [id number] ####Maint Mechanic: AMAN HEARDOMID ([phone])[facility] [place] ([facility])[address] [place] [address] [place] BLASTS TOTAL PER COUNTED LEUKOCYTES BY MANUAL COUNT Normal [facility] Comment on above: Performed By: #### L [id number], [id number] ####Maint Mechanic: AMAN MEDINAANGELA ([phone])[facility] [place] ([facility])[address] [place] [address] [place] EOSINOPHILS (10*3/UL) IN BLOOD-CELLAVISION 0.1 10*3/uL Normal 0.0-0.5 [facility] Comment on above: Performed By: #### L [id number], [id number] ####Maint Mechanic: AMAN MEDINAANGELA ([phone])[facility] [place] ([facility])[address] [place] [address] [place] EOSINOPHILS TOTAL PER COUNTED LEUKOCYTES BY MANUAL COUNT 1 Normal 0-1 [facility] Comment on above: Performed By: #### L [id number], [id number] ####Maint Mechanic: AMAN HEARDOMID ([phone])[facility] [place] ([facility])[address] [place] [address] [place] EOSINOPHILS/100 LEUKOCYTES IN BLOOD-CELLAVISION 1 % Normal 0-6 [facility] Comment on above: Performed By: #### L [id number], [id number] ####Maint Mechanic: AMAN SANTOS ([phone])[facility] [place] ([facility])[address] [place] [address] [place] HYPOCHROMIA (PRESENCE) IN BLOOD BY LIGHT MICROSCOPY Moderate Abnormal (none) [facility] Comment on above: Performed By: #### L [id number], [id number] ####Maint Mechanic: AMAN SANTOS ([phone])[facility] [place] ([facility])[address] [place] [address] [place] LYMPHOCYTES (10*3/UL) IN BLOOD-CELLAVISION 0.9 10*3/uL Low 1.0-4.3 [facility] Comment on above: Performed By: #### L [id number], [id number] ####Maint Mechanic: AMAN SANTOS ([phone])[facility] [place] ([facility])[address] [place] [address] [place] LYMPHOCYTES TOTAL PER COUNTED LEUKOCYTES BY MANUAL COUNT 7 Normal [facility] Comment on above: Performed By: #### L [id number], [id number] ####Maint Mechanic: AMAN HEARDOMID ([phone])[facility] [place] ([facility])[address] [place] [address] [place] LYMPHOCYTES/100 LEUKOCYTES IN BLOOD-CELLAVISION 6 % Low 15-45 [facility] Comment on above: Performed By: #### L [id number], [id number] ####Maint Mechanic: AMAN HEARDOMID ([phone])[facility] [place] ([facility])[address] [place] [address] [place] METAMYELOCYTES TOTAL PER COUNTED LEUKOCYTES BY MANUAL COUNT [facility] Comment on above: Performed By: #### L [id number], [id number] ####Maint Mechanic: AMAN SANTOS ([phone])[facility] [place] ([facility])[address] [place] [address] [place] MONOCYTES (10*3/UL) IN BLOOD-CELLAVISION 2.9 10*3/uL High 0.0-0.9 [facility] Comment on above: Performed By: #### L [id number], [id number] ####Maint Mechanic: AMAN SANTOS ([phone])[facility] [place] ([facility])[address] [place] [address] [place] MONOCYTES TOTAL PER COUNTED LEUKOCYTES BY MANUAL COUNT 22 Normal [facility] Comment on above: Performed By: #### L [id number], [id number] ####Maint Mechanic: AMAN SANTOS ([phone])[facility] [place] ([facility])[address] [place] [address] [place] MONOCYTES/100 LEUKOCYTES IN BLOOD-IBETH 20 % High 5-13 [facility] Comment on above: Performed By: #### L [id number], [id number] ####Maint Mechanic: AMAN SANTOS ([phone])[facility] [place] ([facility])[address] [place] [address] [place] MYELOCYTES COUNTED BY MANUAL COUNT Normal [facility] Comment on above: Performed By: #### L [id number], [id number] ####Maint Mechanic: AMAN SANTOS ([phone])[facility] [place] ([facility])[address] [place] [address] [place] NEUTROPHILS BAND FORM/100 LEUKOCYTES IN BLOOD-CELLAVISI 1 % High <=0 [facility] Comment on above: Performed By: #### L [id number], [id number] ####Maint Mechanic: AMAN SANTOS ([phone])[facility] [place] ([facility])[address] [place] [address] [place] NEUTROPHILS TOTAL PER COUNTED LEUKOCYTES BY MANUAL COUNT 78 Normal [facility] Comment on above: Performed By: #### L [id number], [id number] ####Maint Mechanic: AMAN SANTOS ([phone])[facility] [place] ([facility])[address] [place] [address] [place] POIKILOCYTOSIS (PRESENCE) IN BLOOD BY LIGHT MICROSCOPY Slight Abnormal (none) [facility] Comment on above: Performed By: #### L [id number], [id number] ####Maint Mechanic: AMAN SANTOS ([phone])[facility] [place] ([facility])[address] [place] [address] [place] PROMYELOCYTES TOTAL PER COUNTED LEUKOCYTES BY MANUAL COUNT Normal [facility] Comment on above: Performed By: #### L [id number], [id number] ####Maint Mechanic: AMAN SANTOS ([phone])[facility] [place] ([facility])[address] [place] [address] [place] RBC MORPHOLOGY IN BLOOD abnormal Normal [facility] Comment on above: Performed By: #### L [id number], [id number] ####Maint Mechanic: AMAN SANTOS ([phone])[facility] [place] ([facility])[address] SEGMENTED NEUTROPHILS (10*3/UL) IN BLOOD-CELLAVISION 10.4 10*3/uL High 1.8-7.5 [facility] Comment on above: Performed By: #### L [id number], [id number] ####Maint Mechanic: AMAN SANTOS ([phone])[facility] [place] ([facility])[address] SEGMENTED NEUTROPHILS/100 LEUKOCYTES-CE 71 % Normal 38-82 [facility] Comment on above: Performed By: #### L [id number], [id number] ####Maint Mechanic: AMAN SANTOS ([phone])[facility] [place] ([facility])[address] STOMATOCYTES IN BLOOD BY LIGHT MICROSCOPY Moderate Abnormal (none) [facility] Comment on above: Performed By: #### L [id number], [id number] ####Maint Mechanic: AMAN SANTOS ([phone])[facility] [place] ([facility])[address] UNCLASSIFIED CELLS TOTAL PER COUNTED LEUKOCYTES BY MANUAL COUNT Normal [facility] Comment on above: Performed By: #### L [id number], [id number] ####Maint Mechanic: AMAN SANTOS ([phone])[facility] [place] ([facility])[address] VARIANT LYMPHOCYTES TOTAL PER COUNTED LEUKOCYTES BY MANUAL COUNT Normal [facility] Comment on above: Performed By: #### L [id number], [id number] ####Maint Mechanic: AMAN SANTOS ([phone])[facility] [place] ([facility])[address] No Panel Informationon 02-17 Atypical Lymphocytes Manual [facility] Bands Manual 1 [facility] Basophils Manual [facility] Blasts Manual [facility] Eosinophils Manual 1 0 - 1 [facility] Interpretation and review of laboratory results Abnormal [facility] Lymphocytes Manual 7 [facility] Metamyelocytes Manual [facility] Monocytes Manual 22 [facility] Myelocytes Manual [facility] Neutrophils Manual 78 [facility] Promyelocytes Manual [facility] Unclassified Cells, Manual [facility] Progress Noteon 02-18-2024 Progress Note Normal [facility] Progress Note Normal [facility] Progress Note Normal [facility] 30on 02-17-2024 30 Normal [facility] [id number] 02-17-2024 [id number] Normal [facility] [id number] Normal [facility] 36on 02-17-2024 36 Pt scheduled. Normal [facility] CBC W Auto Differential pane l (Bld)on 02-17-2024 Erythrocyte distribution width (RBC) [Ratio] 16.3 % High 11.5 - 15.0 % [facility] Hematocrit (Bld) [Volume fraction] 31.9 % Low 35.0 - 47.0 % [facility] Hemoglobin (Bld) [Mass/Vol] 9.3 g/dL Low 11.7 - 16.0 g/dL [facility] Interpretation and review of laboratory results Abnormal [facility] IPF 10 [facility] MCH (RBC) [Entitic mass] 27.7 pg 26.0 - 34.0 pg [facility] MCHC (RBC) [Mass/Vol] 29.2 % Low 30.5 - 36.0 % [facility] MCV (RBC) [Entitic vol] 94.9 fL 77.0 - 99.0 fL [facility] Platelet mean volume (Bld) [Entitic vol] 12.6 fL 9.0 - 12.7 fL [facility] Platelets (Bld) [#/Vol] 90 10*3/uL Low 140 - 440 10*3/uL [facility] RBC (Bld) [#/Vol] 3.36 10*6/uL Low 3.80 - 5.2 0 10*6/uL [facility] WBC (Bld) [#/Vol] 11.3 10*3/uL High 3.6 - 10.7 10*3/uL [facility] CBC WITH AUTO DIFFERENTIALon 02-17-2024 Erythrocyte distribution width (RBC) [Ratio] 16.3 % High 11.5-15.0 [facility] Comment on above: Performed By: #### L [id number], [id number] ####Maint Mechanic: AMAN SANTOS ([phone])[facility] MARTINEZYOSELYN ([facility])[address] Hematocrit (Bld) [Volume fraction] 31.9 % Low 35.0-47.0 [facility] Comment on above: Performed By: #### L [id number], [id number] ####Maint Mechanic: AMAN SANTOS ([phone])[facility] [place]N ([facility])[address] Hemoglobin (Bld) [Mass/Vol] 9.3 g/dL Low 11.7-16.0 [facility] Comment on above: Performed By: #### L [id number], [id number] ####Maint Mechanic: AMAN ASNTOS ([phone])[facility]ENTER[facility]ZUN[facility] HOSPITALSirena ([facility])[address] IPF 10 Normal [facility] Comment on above: Performed By: #### L [id number], [id number] ####Maint Mechanic: AMAN SANTOS ([phone])[facility]ITAL[facility] ([facility])[address] MCH (RBC) [Entitic mass] 27.7 pg Normal 26.0-34.0 [facility] Comment on above: Performed By: #### L [id number], [id number] ####Maint Mechanic: AMAN SANTOS ([phone])[facility]ITALSi[facility] ([facility])[address] MCHC 29.2 % Low 30.5-36.0 [facility] Comment on above: Performed By: #### L [id number], [id number] ####Maint Mechanic: AMAN SANTOS ([id number])[facility] CENTERBessy MARTINEZYOSELYN (SBHLAB)[address] MCV (RBC) [Entitic vol] 94.9 fL Normal 77.0-99.0 [facility] Comment on above: Performed By: #### L [id number], [id number] ####Maint Mechanic: AMAN SANTOS ([id number])[facility] CENTERA JUANYOSELYN (SBHLAB)[address] Platelet mean volume (Bld) [Entitic vol] 12.6 fL Normal 9.0-12.7 [facility] Comment on above: Performed By: #### L [id number], [id number] ####Maint Mechanic: AMAN SANTOS ([id number])THE [facility] [place] ([facility])[address] Platelets (Bld) [#/Vol] 90 10*3/uL Low 140-440 [facility] Comment on above: Performed By: #### L [id number], [id number] ####Maint Mechanic: AMAN SANTOS ([phone])[facility] [place] (SBHLAB)[address] RBC (Bld) [#/Vol] 3.36 10*6/uL Low 3.80-5.20 [facility] Comment on above: Performed By: #### L [id number], [id number] ####Maint Mechanic: AMAN SANTOS ([phone])[facility]essy MARTINEZISAMARN (SBHLAB)[address] WBC (Bld) [#/Vol] 11.3 10*3/uL High 3.6-10.7 [facility] Comment on above: Performed By: #### L [id number], [id number] ####Maint Mechanic: AMAN SANTOS ([phone])[facility] [place] (SB[facility])[address] COMPREHENSIVE METABOLIC PANE Amaury 02-17-2024 Albumin [Mass/Vol] 3.5 g/dL Normal 3.4-4.8 [facility] Comment on above: Performed By: #### L [id number] ####Maint Mechanic: AMAN SANTOS ([phone])[facility] [place] (SBHLAB)155 [place] [address] [place] ALP [Catalytic activity/Vol] 73 U/L Normal 40-150 [facility] Comment on above: Performed By: #### L [id number] ####Maint Mechanic: AMAN SANTOS ([phone])[facility] [place] (SB[facility]AB)[address] [place] [address] [place] ALT [Catalytic activity/Vol] 15 U/L Normal <30 [facility] Comment on above: Performed By: #### L [id number] ####Maint Mechanic: AMAN SANTOS ([phone])[facility] [place] (SBHLAB)[address] Anion gap [Moles/Vol] 4 mmol/L Normal 3-13 [facility] Comment on above: Performed By: #### L [id number] ####Maint Mechanic: AMAN SANTOS ([phone])[facility] ([facility])[address] AST [Catalytic activity/Vol] 14 U/L Normal <34 [facility] Comment on above: Performed By: #### L [id number] ####Maint Mechanic: AMAN SANTOS ([phone])[facility] [place] (SBHLAB)[address] Bilirubin [Mass/Vol] 1.1 mg/dL Normal <1.2 [facility] Comment on above: Performed By: #### L [id number] ####Maint Mechanic: AMAN SANTOS ([phone])[facility] [place] (SB[facility])[address] [place] [address] [place] Calcium [Mass/Vol] 9.1 mg/dL Normal 8.8-10.0 [facility] Comment on above: Performed By: #### L [id number] ####Maint Mechanic: AMAN SANTOS ([phone])[facility] ([facility])[address] [place] [address] [place] Chloride [Moles/Vol] 103 mmol/L Normal 98-107 [facility] Comment on above: Performed By: #### L [id number] ####Maint Mechanic: AMAN SANTOS ([phone])[facility] (SBHLAB)[address] CO2 [Moles/Vol] 35 mmol/L High 23-31 [facility] Comment on above: Performed By: #### L [id number] ####Maint Mechanic: AMAN SANTOS ([phone])[facility] Creatinine [Mass/Vol] 0.71 mg/dL Normal 0.57-1.11 [facility] Comment on above: Performed By: #### L [id number] ####Maint Mechanic: AMAN SANTOS ([id number])[facility] ([facility])[address] [place] [address] GLOMERULAR FILTRATION RATE ML/MIN/1.73 SQ M.PREDICTED >90.0 Normal >60.0 [facility] Comment on above: Result Comment: Calc ulation based on the Chronic Kidney Disease Epidemiology Collaboration (CKD-EPI) equation refit without adjustment for race Performed By: #### L [id number] ####Maint Mechanic: AMAN SANTOS ([phone])[facility] ([facility])[address] Glucose [Mass/Vol] 134 mg/dL High 82-115 [facility] Comment on above: Performed By: #### L [id number] ####Maint Mechanic: AMAN SANTOS ([phone])[facility] [place] [address] [place] Potassium [Moles/Vol] 3.9 mmol/L Normal 3.5-5.1 [facility] Comment on above: Result Comment: [facility] potassium values may be up to 0.5 mmol/L lower than serum values. Performed By: #### L [id number] ####Maint Mechanic: AMAN SANTOS ([phone])[facility] [place] [address] [place] Protein [Mass/Vol] 5.5 g/dL Low 6.4-8.3 [facility] Comment on above: Performed By: #### L [id number] ####Maint Mechanic: AMAN TOM ([phone])[facility] DIET[place] (SBHLAB)[address] Sodium [Moles/Vol] 142 mmol/L Normal 136-145 [facility] Comment on above: Performed By: #### L [id number] ####Maint Mechanic: AMAN MEDINAANGELA ([phone])[facility] (SBHLAB)[address] Urea nitrogen [Mass/Vol] 17 mg/dL Normal 9-23 [facility] Comment on above: Performed By: #### L [id number] ####Maint Mechanic: AMAN TOM ([phone])[facility] (SBHLAB)[address] Comprehensive metabolic 1998 panelOrdered By: Spencer Workman on 02-17-2024 Albumin [Mass/Vol] 3.5 g/dL 3.4 - 4.8 g/dL [facility] ALP [Catalytic activity/Vol] 73 U/L 40 - 150 U/L [facility] ALT [Catalytic activity/Vol] 15 [facility] Anion gap [Moles/Vol] 4 mmol/L 3 - 13 mmol/L [facility] AST [Catalytic activity/Vol] 14 U/L NINF - 34 U/L [facility] Bilirubin [Mass/Vol] 1.1 mg/dL NINF - 1.2 mg/dL [facility] Calcium [Mass/Vol] 9.1 mg/dL 8.8 - 10. 0 mg/dL [facility] Chloride [Moles/Vol] 103 mmol/L 98 - 10 7 mmol/L [facility] CO2 [Moles/Vol] 35 mmol/L High 23 - 31 mmol/L [facility] Creatinine [Mass/Vol] 0.71 mg/dL 0.57 - 1.11 mg/dL [facility] GFR/1.73 sq M.predicted (S/P/Bld) [Vol rate/Area] - PINF [facility] Comment on above: Calculation based on the Chronic Kidney Disease Epidemiology Collaboration (CKD-EPI) equation refit without adjustment for race Glucose [Mass/Vol] 134 mg/dL High 82 - 115 mg/dL [facility] Interpretation and review of laboratory results Abnormal [facility] Potassium [Moles/Vol] 3.9 mmol/L 3.5 - 5.1 mmol/L [facility] Comment on above: Plasma potassium imer ues may be up to 0.5 mmol/L lower than serum values. Protein [Mass/Vol] 5.5 g/dL Low 6.4 - 8.3 g/dL [facility] Sodium [Moles/Vol] 142 mmol/L 136 - 145 mmol/L [facility] Urea nitrogen [Mass/Vol] 17 mg/dL 9 - 23 mg/dL [facility] Consulton 02-17-2024 Consult Normal [facility] Laboratory - Hematology and Cell countson 02-17-2024 Hypochromia Ql (Bld) Slight Abnormal (none) [facility] Lymphocytes (Bld) [#/Vol] 0.9 10*3/uL Low 1.0 - 4.3 10*3/uL [facility] Lymphocytes/100 WBC (Bld) 8 % Low 15 - 45 % [facility] Monocytes (Bld) [#/Vol] 2.4 10*3/uL High 0.0 - 0.9 10*3/uL [facility] Monocytes/100 WBC (Bld) 21 % High 5 - 13 % [facility] Neutrophils (Bld) [#/Vol] 8.1 10*3/uL High 1.8 - 7.5 10*3/uL [facility] Poikilocytosis LM Ql (Bld) Slight Abnormal (none) [facility] RBC morphology finding Nom (Bld) abnormal [facility] Segmented neutrophils/100 WBC (Bld) 72 % 38 - 82 % [facility] Stomatocytes LM Ql (Bld) Moderate Abnormal (none) [facility] MANUAL DIFFERENTIAL (CELLAVI TANYA)on 02-17-2024 BAND NEUTROPHILS TOTAL PER COUNTED LEUKOCYTES BY MANUAL COUNT Normal [facility] Comment on above: Performed By: #### L [id number], [id number] ####Maint Mechanic: AMAN SANTOS ([phone])[facility] [place] (SBHLAB)[address] [place] [address] [place] BASOPHILS TOTAL PER COUNTED LEUKOCYTES BY MANUAL COUNT [facility] Comment on above: Performed By: #### L [id number], [id number] ####Maint Mechanic: AMAN HEARDOMID ([phone])[facility] [place] (SBHLAB)[address] BLASTS TOTAL PER COUNTED LEUKOCYTES BY MANUAL COUNT [facility] Comment on above: Performed By: #### L [id number], [id number] ####Maint Mechanic: AMAN HEARDOMID ([phone])[facility] [place] (SB[facility]AB)[address] EOSINOPHILS TOTAL PER COUNTED LEUKOCYTES BY MANUAL COUNT Normal [facility] Comment on above: Performed By: #### L [id number], [id number] ####Maint Mechanic: AMAN SANTOS ([id number])[facility] [place] (SBHLAB)[address] HYPOCHROMIA (PRESENCE) IN BLOOD BY LIGHT MICROSCOPY Slight Abnormal (none) [facility] Comment on above: Performed By: #### L [id number], [id number] ####Maint Mechanic: AMAN SANTOS ([phone])[facility] [place] (SBHLAB)[address] LYMPHOCYTES (10*3/UL) IN BLOOD-CELLAVISION 0.9 10*3/uL Low 1.0-4.3 [facility] Comment on above: Performed By: #### L [id number], [id number] ####Maint Mechanic: AMAN SANTOS ([phone])[facility] [place] (SBHLAB)[address] [place] [address] [place] LYMPHOCYTES TOTAL PER COUNTED LEUKOCYTES BY MANUAL COUNT [address] [place] [address] Comment on above: Performed By: #### L [id number], [id number] ####Maint Mechanic: AMAN SANTOS ([phone])[facility] [place] (SBHLAB)155 [place] [address] [place] LYMPHOCYTES/100 LEUKOCYTES IN BLOOD-CELLAVISION 8 % Low 15-45 [facility] Comment on above: Performed By: #### L [id number], [id number] ####Maint Mechanic: AMAN SANTOS ([phone])[facility] [place] (SBHLAB)155 [place] [address] [place] METAMYELOCYTES TOTAL PER COUNTED LEUKOCYTES BY MANUAL COUNT Normal [facility] Comment on above: Performed By: #### L [id number], [id number] ####Maint Mechanic: AMAN SANTOS ([phone])[facility] [place] (SB[facility]AB)[address] [place] [address] [place] MONOCYTES (10*3/UL) IN BLOOD-CELLAVISION 2.4 10*3/uL High 0.0-0.9 [facility] Comment on above: Performed By: #### L [id number], [id number] ####Maint Mechanic: AMAN SANTOS ([phone])[facility] [place] (SBHLAB)[address] [place] [address] [place] MONOCYTES TOTAL PER COUNTED LEUKOCYTES BY MANUAL COUNT 24 Normal [facility] Comment on above: Performed By: #### L [id number], [id number] ####Maint Mechanic: AMAN SANTOS ([phone])[facility] [place] (SBHLAB)[address] [place] [address] [place] MONOCYTES/100 LEUKOCYTES IN BLOOD-IBETH 21 % High 5-13 [facility] Comment on above: Performed By: #### L [id number], [id number] ####Maint Mechanic: AMAN SANTOS ([phone])[facility] [place] (SB[facility]AB)[address] [place] [address] [place] MYELOCYTES COUNTED BY MANUAL COUNT [facility] Comment on above: Performed By: #### L [id number], [id number] ####Maint Mechanic: AMAN SANTOS ([phone])[facility] [place] (SBHLAB)[address] [place] [address] [place] NEUTROPHILS TOTAL PER COUNTED LEUKOCYTES BY MANUAL COUNT 84 Normal [facility] Comment on above: Performed By: #### L [id number], [id number] ####Maint Mechanic: AMAN SANTOS ([id number])[facility] [place] (SB[facility])[address] [place] [address] [place] POIKILOCYTOSIS (PRESENCE) IN BLOOD BY LIGHT MICROSCOPY Slight Abnormal (none) [facility] Comment on above: Performed By: #### L [id number], [id number] ####Maint Mechanic: AMAN SANTOS ([phone])[facility] [place] (SB[facility])[address] [place] [address] [place] PROMYELOCYTES TOTAL PER COUNTED LEUKOCYTES BY MANUAL COUNT Normal [facility] Comment on above: Performed By: #### L [id number], [id number] ####Maint Mechanic: AMAN SANTOS ([phone])[facility] [place] (SB[facility])[address] [place] [address] [place] RBC MORPHOLOGY IN BLOOD abnormal Normal [facility] Comment on above: Performed By: #### L [id number], [id number] ####Maint Mechanic: AMAN SANTOS ([phone])[facility] [place] (SB[facility])[address] [place] [address] [place] SEGMENTED NEUTROPHILS (10*3/UL) IN BLOOD-CELLAVISION 8.1 10*3/uL High 1.8-7.5 [facility] Comment on above: Performed By: #### L [id number], [id number] ####Maint Mechanic: AMAN SANTOS ([phone])[facility] [place] (SB[facility])[address] [place] [address] [place] SEGMENTED NEUTROPHILS/100 LEUKOCYTES-CE 72 % Normal 38-82 [facility] Comment on above: Performed By: #### L [id number], [id number] ####Maint Mechanic: AMAN SANTOS ([phone])[facility] [place] (SB[facility])[address] [place] [address] [place] STOMATOCYTES IN BLOOD BY LIGHT MICROSCOPY Moderate Abnormal (none) [facility] Comment on above: Performed By: #### L [id number], [id number] ####Maint Mechanic: AMAN HEARDOMID ([phone])[facility] [place] (SB[facility])[address] UNCLASSIFIED CELLS TOTAL PER COUNTED LEUKOCYTES BY MANUAL COUNT Normal [facility] Comment on above: Performed By: #### L [id number], [id number] ####Maint Mechanic: AMAN HEARDOMID ([phone])[facility] [place] (SBHLAB)[address] VARIANT LYMPHOCYTES TOTAL PER COUNTED LEUKOCYTES BY MANUAL COUNT Normal [facility] Comment on above: Performed By: #### L [id number], [id number] ####Maint Mechanic: AMAN HEARDOMID ([phone])[facility] ([facility])[address] No Panel Informationon 02-16 Atypical Lymphocytes Manual [facility] Bands Manual [facility] Basophils Manual [facility] Blasts Manual [facility] Eosinophils Manual [facility] Interpretation and review of laboratory results Abnormal [facility] Lymphocytes Manual 9 [facility] Metamyelocytes Manual [facility] Monocytes Manual 24 [facility] Myelocytes Manual [facility] Neutrophils Manual 84 [facility] Promyelocytes Manual [facility] Unclassified Cells, Manual [facility] Progress Noteon 02-17-2024 Progress Note Normal [facility] Progress Note Normal [facility] Progress Note Normal [facility] US Heart TransthoracicOrdere d By: Abbie Powers on 02-17-2024 Ao Root Index 1.36 cm/m2 [facility] Work Phone: Aortic Root 2.8 cm [facility] Work Phone: Aortic Sinus Valsalva 2.8 cm [facility] Work Phone: Aortic Sinus Valsalva Index 1.36 cm/m2 [facility] [employer] Work Phone: AR Max Velocity PISA 4.4 m/s [facility] Work Phone: AR PHT 350.2 ms [facility] Work Phone: Ascending Aorta 3.2 cm [facility] Work Phone: Ascending Aorta Index 1.55 cm/m2 [facility] Work Phone: AV Area by Peak Velocity 1.2 cm2 [facility] [employer] Work Phone: AV Area by VTI 1.3 cm2 [facility] [employer] Work Phone: AV Mean Gradient 8 mmHg [facility] [employer] Work Phone: AV Mean Velocity 1.3 m/s [facility] [employer] Work Phone: AV Peak Gradient 16 mmHg [facility] [employer] Work Phone: AV Peak Velocity 2 m/s [facility] [employer] Work Phone: AV Velocity Ratio 0.55 [facility] [employer] Work Phone: AV VTI 36.5 cm [facility] [employer] Work Phone: KAROLINA/BSA Peak Velocity 0.6 cm2/m2 [facility] Work Phone: KAROLINA/BSA VTI 0.6 cm2/m2 [facility] [employer] Work Phone: EF BP 66 % 55 - 100 % [facility] [employer] Work Phone: Est. RA Pressure 8 mmHg [facility] [employer] Work Phone: Fractional Shortening 2D 28 % 28 - 44 % [facility] [employer] Work Phone: Interpretation and review of laboratory results Abnormal [facility] [employer] Work Phone: IVC Diameter 2.5 cm [facility] [employer] Work Phone: IVSd 1 cm Abnormal 0.6 - 0.9 cm [facility] Work Phone: LA Volume 2C 123 mL Abnormal 22 - 52 mL [facility] Work Phone: LA Volume 4C 154 mL Abnormal 22 - 52 mL [facility] Work Phone: LA Volume A/L 155 mL [facility] Work Phone: LA Volume BP 147 mL Abnormal 22 - 52 mL [employer] Work Phone: LA Volume Index 2C 60 mL/m2 Abnormal 16 - 34 mL/m2 [employer] Work Phone: LA Volume Index 4C 75 mL/m2 Abnormal 16 - 34 mL/m2 [employer] Work Phone: LA Volume Index A/L 75 mL/m2 16 - 34 mL/m2 [employer] Work Phone: LA Volume Index BP 71 ml/m2 Abnormal 16 - 34 ml/m2 [employer] Work Phone: LV EDV A2C 86 mL [employer] Work Phone: LV EDV A4C 84 mL [employer] Work Phone: LV EDV BP 85 mL 56 - 104 mL [employer] Phone: LV EDV Index A2C 42 mL/m2 [employer] Phone: LV EDV Index A4C 41 mL/m2 [employer] Work Phone: LV EDV Index BP 41 mL/m2 [employer] Work Phone: LV Ejection Fraction A2C 69 % [employer] Work Phone: LV Ejection Fraction A4C 63 % [employer] Phone: LV ESV A2C 27 mL [employer] Phone: LV ESV A4C 31 mL [employer] Work Phone: LV ESV BP 29 mL 19 - 49 mL [employer] Work Phone: LV ESV Index A2C 13 mL/m2 [employer] Work Phone: LV ESV Index A4C 15 mL/m2 [employer] Work Phone: LV ESV Index BP 14 mL/m2 [employer] Work Phone: LV Mass 2D 148.1 g 67 - 162 g [employer] Work Phone: LV Mass 2D Index 71.9 g/m2 43 - 95 g/m2 [employer] Work Phone: LV RWT Ratio 0.39 [facility] [employer] Work Phone: LVIDd 4.6 cm 3.9 - 5.3 cm [facility] Work Phone: LVIDd Index 2.23 cm/m2 [facility] [employer] Work Phone: LVIDs 3.3 cm [facility] [employer] Work Phone: LVIDs Index 1.6 cm/m2 [facility] [employer] Work Phone: LVOT Area 2 cm2 [facility] [employer] Work Phone: LVOT Cardiac Output 4.2 liter/minute [facility] [employer] Work Phone: LVOT Diameter 1.6 cm [facility] [employer] Work Phone: LVOT Mean Gradient 3 mmHg [facility] [employer] Work Phone: LVOT Peak Gradient 5 mmHg [facility] [employer] Work Phone: LVOT Peak Velocity 1.1 m/s [facility] [employer] Work Phone: LVOT Stroke Volume Index 21.1 mL/m2 [facility] [employer] Work Phone: LVOT SV 43.4 ml [facility] [employer] Work Phone: LVOT VTI 21.6 cm [facility] [employer] Work Phone: LVOT:AV VTI Index 0.59 [facility] [employer] Work Phone: LVPWd 0.9 cm 0.6 - 0.9 cm [facility] [employer] Work Phone: MR VTI 156 cm [facility] [employer] Work Phone: MV Area by VTI 1.2 cm2 [facility] [employer] Work Phone: MV Max Velocity 1.9 m/s [facility] [employer] Work Phone: MV Mean Gradient 5 mmHg [facility] [employer] Work Phone: MV Mean Velocity 1 m/s [facility] [employer] Work Phone: MV Peak Gradient 15 mmHg [facility] [employer] Work Phone: MV Regurg Velocity PISA 5.4 m/s [facility] Work Phone: [phone] MV VTI 36.8 cm [facility] [employer] Phone: MV:LVOT VTI Index 1.7 [facility] [employer] Phone: [phone] Pulmonary Artery EDP 7 mmHg [facility] [employer] Phone: RA Area 4C 108.3 mL [facility] [employer] Phone: [phone] RA Area 4C 103.9 mL [facility] [employer] Phone: RV Basal Dimension 3.6 cm [facility] [employer] Phone: RV Longitudinal Dimension 7.6 cm [facility] [employer] Phone: RV Mid Dimension 2.4 cm [facility] [employer] Phone: RVSP 60 mmHg [facility] [employer] Phone: [phone] TAPSE 1.4 cm Abnormal 1.7 cm [facility] [employer] Phone: [phone] TR Max Velocity 3.62 m/s [facility] [employer] Phone: [phone] TR Peak Gradient 53 mmHg [facility] [employer] Phone: [phone] [facility] [employer] Phone: [phone] US Heart Transthoracicon Left Ventricle: Left [...] given. 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 Normal [facility] [id number] 02-16-2024 [id number] [facility] 36on 02-16-2024 36 Patient was no call no show for new [employer] SPECIALIST visit for postmenopausal bleeding. It looks like she was admitted to the hospital. Arrange visit in our office in 4 weeks for [employer]IST exam/evaluate bleeding. Normal [facility] CBC W Auto Differential pane l (Bld)Ordered By: Nitin Orellana on 02-16-2024 Erythrocyte distribution width (RBC) [Ratio] 16.6 % High 11.5 - 15.0 % [facility] Hematocrit (Bld) [Volume fraction] 35.5 % 35.0 - 47.0 % [facility] Hemoglobin (Bld) [Mass/Vol] 10.5 g/dL Low 11.7 - 16.0 g/dL [facility] MCH (RBC) [Entitic mass] 27.6 pg 26.0 - 34.0 pg [facility] MCHC (RBC) [Mass/Vol] 29.6 % Low 30.5 - 36.0 % [facility] MCV (RBC) [Entitic vol] 93.2 fL 77.0 - 99.0 fL [facility] Platelet mean volume (Bld) [Entitic vol] 12.4 fL 9.0 - 12.7 fL [facility] Platelets (Bld) [#/Vol] 103 10*3/uL Low 140 - 440 10*3/uL [facility] RBC (Bld) [#/Vol] 3.81 10*6/uL 3.80 - 5.2 0 10*6/uL [facility] WBC (Bld) [#/Vol] 16 10*3/uL High 3.6 - 10.7 10*3/uL [facility] CBC WITH AUTO DIFFERENTIALon 02-16-2024 Erythrocyte distribution width (RBC) [Ratio] 16.6 % High 11.5-15.0 [facility] Comment on above: Performed By: #### L [id number], [id number] ####Maint Mechanic: AMAN SANTOS ([phone])[facility] ([facility])[address] [place] [address] Hematocrit (Bld) [Volume fraction] 35.5 % Normal 35.0-47.0 [facility] Comment on above: Performed By: #### L [id number], [id number] ####Maint Mechanic: AMAN SANTOS ([phone])[facility] ([facility])[address] [place] [address] Hemoglobin (Bld) [Mass/Vol] 10.5 g/dL Low 11.7-16.0 [facility] Comment on above: Performed By: #### L [id number], [id number] ####Maint Mechanic: AMAN [phone])[facility] DYLLANN (SBHLAB)[address] MCH (RBC) [Entitic mass] 27.6 pg Normal 26.0-34.0 [facility] Comment on above: Performed By: #### L [id number], [id number] ####Maint Mechanic: AMANAGA SANTOS ([id number])[facility]ess[facility] ([facility])[address] MCHC 29.6 % Low 30.5-36.0 [facility] Comment on above: Performed By: #### L [id number], [id number] ####Maint Mechanic: AMAN TOM ([phone])[facility] (SBHLAB)[address] MCV (RBC) [Entitic vol] 93.2 fL Normal 77.0-99.0 [facility] Comment on above: Performed By: #### L [id number], [id number] ####Maint Mechanic: AMAN BEBETOCER ([phone])[facility]ENTER[facility] [place] (SBHLAB)[address] Platelet mean volume (Bld) [Entitic vol] 12.4 fL Normal 9.0-12.7 [facility] Comment on above: Performed By: #### L [id number], [id number] ####Maint Mechanic: AMAN SANTOS ([phone])[facility]N (SBHLAB)[address] Platelets (Bld) [#/Vol] 103 10*3/uL Low 140-440 [facility] Comment on above: Performed By: #### L [id number], [id number] ####Maint Mechanic: AMAN SANTOS ([phone])[facility]ENTER[facility]ess[facility]OSPITALN (SBHLAB)[address] RBC (Bld) [#/Vol] 3.81 10*6/uL Normal 3.80-5.20 [facility] Comment on above: Performed By: #### L [id number], [id number] ####Maint Mechanic: AMAN SANTOS ([phone])[facility] (SBHLAB)[address] WBC (Bld) [#/Vol] 16.0 10*3/uL High 3.6-10.7 [facility] Comment on above: Performed By: #### L [id number], [id number] ####Maint Mechanic: AMAN SANTOS ([phone])[facility] (SBHLAB)[address] COMPREHENSIVE METABOLIC PANE Amaury 02-16-2024 Albumin [Mass/Vol] 3.8 g/dL Normal 3.4-4.8 [facility] Comment on above: Performed By: #### L [id number], [id number] ####Maint Mechanic: AMAN SANTOS ([phone])[facility] ([facility])[address] ALP [Catalytic activity/Vol] 77 U/L Normal 40-150 [facility] Comment on above: Performed By: #### L [id number], [id number] ####Maint Mechanic: AMAN SANTOS ([phone])[facility] (SB[facility]AB)[address] ALT [Catalytic activity/Vol] 17 U/L Normal <30 [facility] Comment on above: Performed By: #### L [id number], [id number] ####Maint Mechanic: AMAN SANTOS ([phone])[facility] (SBHLAB)[address] Anion gap [Moles/Vol] 12 mmol/L Normal 3-13 [facility] Comment on above: Performed By: #### L [id number], [id number] ####Maint Mechanic: AMAN SANTOS ([phone])[facility] (SBHLAB)[address] AST [Catalytic activity/Vol] 15 U/L Normal <34 [facility] Comment on above: Performed By: #### L [id number], [id number] ####Maint Mechanic: AMAN SANTOS ([phone])[facility] [place] (SBHLAB)[address] Bilirubin [Mass/Vol] 1.6 mg/dL High <1.2 [facility] Comment on above: Performed By: #### L [id number], [id number] ####Maint Mechanic: AMAN SANTOS ([phone])[facility] [place] (SBHLAB)[address] Calcium [Mass/Vol] 9.1 mg/dL Normal 8.8-10.0 [facility] Comment on above: Performed By: #### L [id number], [id number] ####Maint Mechanic: AMAN SANTOS ([phone])[facility]ENTERBessy [facility]ITAL[facility] (SBHLAB)[address] Chloride [Moles/Vol] 101 mmol/L Normal 98-107 [facility] Comment on above: Performed By: #### L [id number], [id number] ####Maint Mechanic: AMAN SANTOS ([phone])[facility] [place] (SBHLAB)[address] [place] [address] [place] CO2 [Moles/Vol] 31 mmol/L Normal 23-31 [facility] Comment on above: Performed By: #### L [id number], [id number] ####Maint Mechanic: AMAN SANTOS ([phone])[facility] [place] (SBHLAB)[address] Creatinine [Mass/Vol] 0.72 mg/dL Normal 0.57-1.11 [facility] Comment on above: Performed By: #### L [id number], [id number] ####Maint Mechanic: AMAN SANTOS ([phone])[facility] [place] (SBHLAB)[address] GLOMERULAR FILTRATION RATE ML/MIN/1.73 SQ M.PREDICTED 89.0 mL/min/1.73m*2 Normal >60.0 [facility] Comment on above: Result Comment: Calc ulation based on the Chronic Kidney Disease Epidemiology Collaboration (CKD-EPI) equation refit without adjustment for race Performed By: #### L [id number], [id number] ####Maint Mechanic: AMAN SANTOS ([phone])[facility] [place] (SBHLAB)[address] Glucose [Mass/Vol] 113 mg/dL Normal 82-115 [facility] Comment on above: Performed By: #### L [id number], [id number] ####Maint Mechanic: AMAN SANTOS ([phone])[facility] (SBHLAB)[address] Potassium [Moles/Vol] 2.8 mmol/L Low 3.5-5.1 [facility] Comment on above: Result Comment: [facility] potassium values may be up to 0.5 mmol/L lower than serum values. Performed By: #### L [id number], [id number] ####Maint Mechanic: AMAN SANTOS ([phone])[facility] [place] (SBHLAB)[address] Protein [Mass/Vol] 6.0 g/dL Low 6.4-8.3 [facility] Comment on above: Performed By: #### L [id number], [id number] ####Maint Mechanic: AMAN SANTOS ([phone])[facility] [place] (SBHLAB)[address] [place] [address] [place] Sodium [Moles/Vol] 144 mmol/L Normal 136-145 [facility] Comment on above: Performed By: #### L [id number], [id number] ####Maint Mechanic: AMAN SANTOS ([phone])[facility] [place] (SBHLAB)[address] [place] [address] [place] Urea nitrogen [Mass/Vol] 12 mg/dL Normal 9-23 [facility] Comment on above: Performed By: #### L [id number], [id number] ####Maint Mechanic: AMAN SANTOS ([phone])[facility] [place] (SBHLAB)155 [place] [address] [facility] Comprehensive metabolic 1998 panelon 02-16-2024 Albumin [Mass/Vol] 3.8 g/dL 3.4 - 4.8 g/dL [facility] ALP [Catalytic activity/Vol] 77 U/L 40 - 150 U/L [facility] ALT [Catalytic activity/Vol] 17 U/L NINF - 30 U/L [facility] Anion gap [Moles/Vol] 12 mmol/L 3 - 13 mmol/L [facility] AST [Catalytic activity/Vol] 15 U/L NINF - 34 U/L [facility] Bilirubin [Mass/Vol] 1.6 mg/dL High NINF - 1.2 mg/dL [facility] Calcium [Mass/Vol] 9.1 mg/dL 8.8 - 10. 0 mg/dL [facility] Chloride [Moles/Vol] 101 mmol/L 98 - 10 7 mmol/L [facility] CO2 [Moles/Vol] 31 mmol/L 23 - 31 mmol/L [facility] Creatinine [Mass/Vol] 0.72 mg/dL 0.57 - 1.11 mg/dL [facility] GFR/1.73 sq M.predicted (S/P/Bld) [Vol rate/Area] 89 mL/min - PINF [facility] Comment on above: Calculation based on the Chronic Kidney Disease Epidemiology Collaboration (CKD-EPI) equation refit without adjustment for race Glucose [Mass/Vol] 113 mg/dL 82 - 115 mg/dL [facility] Interpretation and review of laboratory results Abnormal [facility] Potassium [Moles/Vol] 2.8 mmol/L Low 3.5 - 5.1 mmol/L [facility] Comment on above: Plasma potassium imer ues may be up to 0.5 mmol/L lower than serum values. Protein [Mass/Vol] 6 g/dL Low 6.4 - 8.3 g/dL [facility] Sodium [Moles/Vol] 144 mmol/L 136 - 145 mmol/L [facility] Urea nitrogen [Mass/Vol] 12 mg/dL 9 - 23 mg/dL [facility] Consulton 02-16-2024 Consult Normal [facility] Laboratory - Chemistry and C hemistry - challengeon 02-16-2024 Magnesium [Mass/Vol] 1.8 mg/dL 1.6 - 2 .6 mg/dL [facility] Laboratory - Hematology and Cell countson 02-16-2024 Anisocytosis Ql (Bld) Slight Abnormal (none) [facility] Band form neutrophils (Bld) [#/Vol] 0.2 10*3/uL High NINF - 0.0 10*3/uL [facility] Band form neutrophils/100 WBC (Bld) 1 % High NINF - 0 % [facility] Hypochromia Ql (Bld) Moderate Abnormal (none) [facility] Lymphocytes (Bld) [#/Vol] 1.8 10*3/uL 1.0 - 4.3 10*3/uL [facility] Lymphocytes/100 WBC (Bld) 11 % Low 15 - 45 % [facility] Monocytes (Bld) [#/Vol] 3.2 10*3/uL High 0.0 - 0.9 10*3/uL [facility] Monocytes/100 WBC (Bld) 20 % High 5 - 13 % [facility] Neutrophils (Bld) [#/Vol] 11 10*3/uL High 1.8 - 7.5 10*3/uL [facility] Poikilocytosis LM Ql (Bld) Slight Abnormal (none) [facility] RBC morphology finding Nom (Bld) abnormal [facility] Segmented neutrophils/100 WBC (Bld) 68 % 38 - 82 % [facility] Stomatocytes LM Ql (Bld) Moderate Abnormal (none) [facility] MAGNESIUMon 02-16-2024 Magnesium [Mass/Vol] 1.8 mg/dL Normal 1.6-2.6 [facility] Comment on above: Result Comment: LEOBARDO Gill COMMENTS:Higher values can be expected in females during menses. Performed By: #### L [id number], [id number] ####Maint Mechanic: AMAN SANTOS ([phone])[facility])[address] [place] [address] MANUAL DIFFERENTIAL (CELLAVI TANYA)on 02-16-2024 ANISOCYTOSIS PRESENCE IN BLOOD BY LIGHT MICROSCOPY Slight Abnormal (none) [facility] Comment on above: Performed By: #### L [id number], [id number] ####Maint Mechanic: AMAN SANTOS ([phone])[facility] [place] (SBHLAB)[address] BAND NEUTROPHILS TOTAL PER COUNTED LEUKOCYTES BY MANUAL COUNT 1 Normal [facility] Comment on above: Performed By: #### L [id number], [id number] ####Maint Mechanic: AMAN SANTOS ([phone])[facility] [place] (SBHLAB)[address] BANDS (10*3/UL) IN BLOOD-CELLAVISION 0.2 10*3/uL High <=0.0 [facility] Comment on above: Performed By: #### L [id number], [id number] ####Maint Mechanic: AMAN SANTOS ([id number])[facility] [place] (SBHLAB)[address] BASOPHILS TOTAL PER COUNTED LEUKOCYTES BY MANUAL COUNT Normal [facility] Comment on above: Performed By: #### L [id number], [id number] ####Maint Mechanic: AMAN SANTOS ([phone])[facility] [place] (SBHLAB)[address] BLASTS TOTAL PER COUNTED LEUKOCYTES BY MANUAL COUNT Normal [facility] Comment on above: Performed By: #### L [id number], [id number] ####Maint Mechanic: AMAN SANTOS ([phone])[facility] [place] (SBHLAB)[address] EOSINOPHILS TOTAL PER COUNTED LEUKOCYTES BY MANUAL COUNT Normal [facility] Comment on above: Performed By: #### L [id number], [id number] ####Maint Mechanic: AMAN SANTOS ([phone])[facility] [place] (SBHLAB)[address] HYPOCHROMIA (PRESENCE) IN BLOOD BY LIGHT MICROSCOPY Moderate Abnormal (none) [facility] Comment on above: Performed By: #### L [id number], [id number] ####Maint Mechanic: AMAN SANTOS ([phone])[facility] [place] (SBHLAB)[address] [place] [address] [place] LYMPHOCYTES (10*3/UL) IN BLOOD-CELLAVISION 1.8 10*3/uL Normal 1.0-4.3 [facility] Comment on above: Performed By: #### L [id number], [id number] ####Maint Mechanic: AMAN SANTOS ([phone])[facility] [place] (SBHLAB)[address] [place] [address] [place] LYMPHOCYTES TOTAL PER COUNTED LEUKOCYTES BY MANUAL COUNT 11 Normal [facility] Comment on above: Performed By: #### L [id number], [id number] ####Maint Mechanic: AMAN TATECER ([phone])[facility] [place] (SBHLAB)[address] [place] [address] [place] LYMPHOCYTES/100 LEUKOCYTES IN BLOOD-CELLAVISION 11 % Low 15-45 [facility] Comment on above: Performed By: #### L [id number], [id number] ####Maint Mechanic: AMAN SANTOS ([phone])[facility] [place] (SBHLAB)[address] METAMYELOCYTES TOTAL PER COUNTED LEUKOCYTES BY MANUAL COUNT [facility] Comment on above: Performed By: #### L [id number], [id number] ####Maint Mechanic: AMAN SANTOS ([phone])[facility] [place] (SBHLAB)[address] [place] [address] [place] MONOCYTES (10*3/UL) IN BLOOD-CELLAVISION 3.2 10*3/uL High 0.0-0.9 [facility] Comment on above: Performed By: #### L [id number], [id number] ####Maint Mechanic: AMAN SANTOS ([phone])[facility] [place] (SBHLAB)[address] [place] [address] [place] MONOCYTES TOTAL PER COUNTED LEUKOCYTES BY MANUAL COUNT 21 Normal [facility] Comment on above: Performed By: #### L [id number], [id number] ####Maint Mechanic: AMAN SANTOS ([phone])[facility] [place] (SBHLAB)[address] [place] [address] [place] MONOCYTES/100 LEUKOCYTES IN BLOOD-IBETH 20 % High 5-13 [facility] Comment on above: Performed By: #### L [id number], [id number] ####Maint Mechanic: AMAN SANTOS ([phone])[facility] [place] (SBHLAB)[address] [place] [address] [place] MYELOCYTES COUNTED BY MANUAL COUNT Normal [facility] Comment on above: Performed By: #### L [id number], [id number] ####Maint Mechanic: AMAN SANTOS ([phone])[facility] [place] (SBHLAB)[address] [place] [address] [place] NEUTROPHILS BAND FORM/100 LEUKOCYTES IN BLOOD-CELLAVISI 1 % High <=0 [facility] Comment on above: Performed By: #### L [id number], [id number] ####Maint Mechanic: AMAN SANTOS ([phone])[facility] [place] (SBHLAB)[address] [place] [address] [place] NEUTROPHILS TOTAL PER COUNTED LEUKOCYTES BY MANUAL COUNT 71 Normal [facility] Comment on above: Performed By: #### L [id number], [id number] ####Maint Mechanic: AMAN SANTOS ([phone])[facility] [place] (SBHLAB)[address] [place] [address] [place] POIKILOCYTOSIS (PRESENCE) IN BLOOD BY LIGHT MICROSCOPY Slight Abnormal (none) [facility] Comment on above: Performed By: #### L [id number], [id number] ####Maint Mechanic: AMAN SANTOS ([phone])[facility] [place] (SBHLAB)[address] [place] [address] [place] PROMYELOCYTES TOTAL PER COUNTED LEUKOCYTES BY MANUAL COUNT Normal [facility] Comment on above: Performed By: #### L [id number], [id number] ####Maint Mechanic: AMAN SANTOS ([phone])[facility] [place] (SBHLAB)[address] [place] [address] [place] RBC MORPHOLOGY IN BLOOD abnormal Normal [facility] Comment on above: Performed By: #### L [id number], [id number] ####Maint Mechanic: AMAN SANTOS ([phone])[facility] [place] (SBHLAB)[address] SEGMENTED NEUTROPHILS (10*3/UL) IN BLOOD-CELLAVISION 11.0 10*3/uL High 1.8-7.5 [facility] Comment on above: Performed By: #### L [id number], [id number] ####Maint Mechanic: AMAN SANTOS ([phone])[facility] [place] (SBHLAB)[address] SEGMENTED NEUTROPHILS/100 LEUKOCYTES-CE 68 % Normal 38-82 [facility] Comment on above: Performed By: #### L [id number], [id number] ####Maint Mechanic: AMAN SANTOS ([phone])[facility] [place] (SBHLAB)[address] STOMATOCYTES IN BLOOD BY LIGHT MICROSCOPY Moderate Abnormal (none) [facility] Comment on above: Performed By: #### L [id number], [id number] ####Maint Mechanic: AMAN SANTOS ([phone])[facility] [place] (SBHLAB)[address] UNCLASSIFIED CELLS TOTAL PER COUNTED LEUKOCYTES BY MANUAL COUNT [facility] Comment on above: Performed By: #### L [id number], [id number] ####Maint Mechanic: AMAN SANTOS ([phone])[facility] [place] (SBHLAB)[address] VARIANT LYMPHOCYTES TOTAL PER COUNTED LEUKOCYTES BY MANUAL COUNT [facility] Comment on above: Performed By: #### L [id number], [id number] ####Maint Mechanic: AMAN SANTOS ([phone])[facility] (SBHLAB)[address] [place] [address] [place] Magnesium [Mass/Vol]on 02-15 Interpretation and review of laboratory results Normal [facility] Higher values can be expected in females during menses. [facility] No Panel Informationon 02-15 Atypical Lymphocytes Manual [facility] Bands Manual 1 [facility] Basophils Manual [facility] Blasts Manual [facility] Eosinophils Manual [facility] Interpretation and review of laboratory results Abnormal [facility] Lymphocytes Manual 11 [facility] Metamyelocytes Manual [facility] Monocytes Manual 21 [facility] Myelocytes Manual [facility] Neutrophils Manual 71 [facility] Promyelocytes Manual [facility] Unclassified Cells, Manual [facility] Nursing Noteon 02-16-2024 Nursing Note Normal [facility] Progress Noteon 02-16-2024 Progress Note Normal [facility] Progress Note Normal [facility] Progress Note Normal [facility] Progress Note Normal [facility] Progress Note Nutrition rescreen complete. Pt assigned a level one for nutrition care. Normal [facility] 30on 02-15-2024 30 Normal [facility] 36on 02-15-2024 36 Patient is currently hospitalized at [facility]. She needs to be scheduled for office cystoscopy in the [place] office in the next 3 to 4 weeks. Please contact the patient to schedule as an outpatient. Normal [facility] 36 Noted. Daughter had stated that she had done this about the pain and they are still waiting to hear back from them. Normal [facility] 36 Normal [facility] BLOOD CULTUREon 02-15-2024 Bacteria identified Cx Nom (Bld) Normal [facility] Comment on above: Performed By: #### L [id number] ####Maint Mechanic: VIVIAN PANTOJA ([phone])[facility] (SACLAB)[address] [place] [address] C-REACTIVE PROTEINon 024 CRP [Mass/Vol] 39.3 mg/L High <5.0 [facility] Comment on above: Performed By: #### L [id number], [id number] ####Maint Mechanic: AMAN SANTOS ([phone])[facility] (SBHLAB)[address] [place] [address] CBC W Auto Differential pane l (Bld)on 02-15-2024 Erythrocyte distribution width (RBC) [Ratio] 16.5 % High 11.5 - 15.0 % [facility] Hematocrit (Bld) [Volume fraction] 36.5 % 35.0 - 47.0 % [facility] Hemoglobin (Bld) [Mass/Vol] 11 g/dL Low 11.7 - 16.0 g/dL [facility] Interpretation and review of laboratory results Abnormal [facility] IPF 13 [facility] MCH (RBC) [Entitic mass] 27.6 pg 26.0 - 34.0 pg [facility] MCHC (RBC) [Mass/Vol] 30.1 % Low 30.5 - 36.0 % [facility] MCV (RBC) [Entitic vol] 91.7 fL 77.0 - 99.0 fL [facility] Platelet mean volume (Bld) [Entitic vol] 12.8 fL High 9.0 - 12.7 fL [facility] Platelets (Bld) [#/Vol] 101 10*3/uL Low 140 - 440 10*3/uL [facility] RBC (Bld) [#/Vol] 3.98 10*6/uL 3.80 - 5.2 0 10*6/uL [facility] WBC (Bld) [#/Vol] 19.4 10*3/uL High 3.6 - 10.7 10*3/uL [facility] CBC W Auto Differential pane l (Bld)Ordered By: Ya Raya on 02-15-2024 Erythrocyte distribution width (RBC) [Ratio] 16.7 % High 11.5 - 15.0 % [facility] Hematocrit (Bld) [Volume fraction] 40.4 % 35.0 - 47.0 % [facility] Hemoglobin (Bld) [Mass/Vol] 12.2 g/dL 11.7 - 16.0 g/dL [facility] Interpretation and review of laboratory results Abnormal [facility] MCH (RBC) [Entitic mass] 27.7 pg 26.0 - 34.0 pg [facility] MCHC (RBC) [Mass/Vol] 30.2 % Low 30.5 - 36.0 % [facility] MCV (RBC) [Entitic vol] 91.8 fL 77.0 - 99.0 fL [facility] Platelet mean volume (Bld) [Entitic vol] 12.8 fL High 9.0 - 12.7 fL [facility] Platelets (Bld) [#/Vol] 110 10*3/uL Low 140 - 440 10*3/uL [facility] RBC (Bld) [#/Vol] 4.4 10*6/uL 3.80 - 5.2 0 10*6/uL [facility] WBC (Bld) [#/Vol] 21.3 10*3/uL High 3.6 - 10.7 10*3/uL [facility] CBC WITH AUTO DIFFERENTIALon 02-15-2024 Erythrocyte distribution width (RBC) [Ratio] 16.5 % High 11.5-15.0 [facility] Comment on above: Performed By: #### L [id number], [id number] ####Maint Mechanic: AMAN SANTOS ([phone])[facility] ([facility])[address] [place] [address] Hematocrit (Bld) [Volume fraction] 36.5 % Normal 35.0-47.0 [facility] Comment on above: Performed By: #### L [id number], [id number] ####Maint Mechanic: AMAN SANTOS ([phone])[facility] ([facility])[address] [place] [address] Hemoglobin (Bld) [Mass/Vol] 11.0 g/dL Low 11.7-16.0 [facility] Comment on above: Performed By: #### L [id number], [id number] ####Maint Mechanic: AMAN SANTOS ([phone])[facility] ([facility])[address] [place] [address] IPF 13 Normal [facility] Comment on above: Performed By: #### L [id number], [id number] ####Maint Mechanic: AMAN SANTOS ([phone])[facility] ([facility])[address] [place] [address] MCH (RBC) [Entitic mass] 27.6 pg Normal 26.0-34.0 [facility] Comment on above: Performed By: #### L [id number], [id number] ####Maint Mechanic: AMAN SANTOS ([phone])[facility] (SBHLAB)[address] MCHC 30.1 % Low 30.5-36.0 [facility] Comment on above: Performed By: #### L [id number], [id number] ####Maint Mechanic: AMAN SANTOS ([phone])[facility] (SBHLAB)[address] MCV (RBC) [Entitic vol] 91.7 fL Normal 77.0-99.0 [facility] Comment on above: Performed By: #### L [id number], [id number] ####Maint Mechanic: AMAN SANTOS ([phone])[facility] (SBHLAB)[address] [place] [address] Platelet mean volume (Bld) [Entitic vol] 12.8 fL High 9.0-12.7 [facility] Comment on above: Performed By: #### L [id number], [id number] ####Maint Mechanic: AMAN SANTOS ([phone])[facility] (SBHLAB)[address] Platelets (Bld) [#/Vol] 101 10*3/uL Low 140-440 [facility] Comment on above: Performed By: #### L [id number], [id number] ####Maint Mechanic: AMAN SANTOS ([phone])[facility] (SBHLAB)[address] RBC (Bld) [#/Vol] 3.98 10*6/uL Normal 3.80-5.20 [facility] Comment on above: Performed By: #### L [id number], [id number] ####Maint Mechanic: AMAN SANTOS ([phone])[facility] (SBHLAB)[address] WBC (Bld) [#/Vol] 19.4 10*3/uL High 3.6-10.7 [facility] Comment on above: Performed By: #### L [id number], [id number] ####Maint Mechanic: AMAN SANTOS ([phone])[facility] (SBHLAB)[address] Erythrocyte distribution width (RBC) [Ratio] 16.7 % High 11.5-15.0 [facility] Comment on above: Performed By: #### L [id number], [id number] ####Maint Mechanic: AMAN SANTOS ([phone])[facility] (SBHLAB)[address] [place] [address] Hematocrit (Bld) [Volume fraction] 40.4 % Normal 35.0-47.0 [facility] Comment on above: Performed By: #### L [id number], [id number] ####Maint Mechanic: AMAN SANTOS ([phone])[facility] (SBHLAB)[address] [place] [address] Hemoglobin (Bld) [Mass/Vol] 12.2 g/dL Normal 11.7-16.0 [facility] Comment on above: Performed By: #### L [id number], [id number] ####Maint Mechanic: AMAN SANTOS ([id number])[facility] (SBHLAB)[address] [place] [address] MCH (RBC) [Entitic mass] 27.7 pg Normal 26.0-34.0 [facility] Comment on above: Performed By: #### L [id number], [id number] ####Maint Mechanic: AMAN SANTOS ([phone])[facility] (SBHLAB)[address] [place] [address] MCHC 30.2 % Low 30.5-36.0 [facility] Comment on above: Performed By: #### L [id number], [id number] ####Maint Mechanic: AMAN SANTOS ([phone])[facility] (SBHLAB)[address] MCV (RBC) [Entitic vol] 91.8 fL Normal 77.0-99.0 [facility] Comment on above: Performed By: #### L [id number], [id number] ####Maint Mechanic: AMAN SANTOS ([id number])[facility] ([facility])[address] Platelet mean volume (Bld) [Entitic vol] 12.8 fL High 9.0-12.7 [facility] Comment on above: Performed By: #### L [id number], [id number] ####Maint Mechanic: AMAN SANTOS ([id number])[facility] ([facility])[address] Platelets (Bld) [#/Vol] 110 10*3/uL Low 140-440 [facility] Comment on above: Performed By: #### L [id number], [id number] ####Maint Mechanic: AMAN SANTOS ([id number])[facility] (SB[facility])[address] [place] [address] RBC (Bld) [#/Vol] 4.40 10*6/uL Normal 3.80-5.20 [facility] Comment on above: Performed By: #### L [id number], [id number] ####Maint Mechanic: AMAN SANTOS ([id number])[facility] ([facility]AB)[address] [place] [address] WBC (Bld) [#/Vol] 21.3 10*3/uL High 3.6-10.7 [facility] Comment on above: Performed By: #### L [id number], [id number] ####Maint Mechanic: AMAN SANTOS ([phone])[facility] MIJARESN (SBHLAB)[address] COMPLETE URINALYSISon 2023 BACTERIA (#/HPF) IN URINE Few Abnormal Negative [facility] Comment on above: Performed By: #### L [id number] ####Maint Mechanic: AMAN TOM ([id number])[facility] [place] (SBHLAB)[address] BILIRUBIN, TOTAL PRESENCE IN URINE Negative Normal Negative [facility] Comment on above: Performed By: #### L [id number] ####Maint Mechanic: AMAN TOM ([phone])[facility] [place] (SBHLAB)[address] Clarity (U) Turbid Abnormal Clear [facility] Comment on above: Performed By: #### L [id number] ####Maint Mechanic: AMAN MEDINAANGELA ([phone])[facility] [place] (SBHLAB)[address] Color (U) Yellow Normal Lt. Yellow [facility] Comment on above: Performed By: #### L [id number] ####Maint Mechanic: AMAN MEDINAANGELA ([phone])[facility] [place] (SBHLAB)[address] GLUCOSE (MG/DL) IN URINE Normal Normal Normal (<70) [facility] Comment on above: Performed By: #### L [id number] ####Maint Mechanic: AMAN MEDINAANGELA ([phone])[facility] [place] (SBHLAB)[address] HEMOGLOBIN PRESENCE IN URINE 0.1 mg/dL Abnormal Negative [facility] Comment on above: Performed By: #### L [id number] ####Maint Mechanic: AMAN MEDINAANGELA ([phone])[facility] [place] (SBHLAB)[address] HYALINE CASTS (#/LPF) IN URINE SEDIMENT BY MICROSCOPY 0-2 Abnormal Negative [facility] Comment on above: Performed By: #### L [id number] ####Maint Mechanic: AMAN HEARDOMID ([phone])[facility] [place] (SBHLAB)[address] [place] [address] [place] Ketones Ql (U) Negative Normal Negative [facility] Comment on above: Performed By: #### L [id number] ####Maint Mechanic: AMAN SANTOS ([phone])[facility] [place] (SBHLAB)[address] LEUKOCYTE ESTERASE PRESENCE IN URINE BY TEST STRIP Negative Normal Negative [facility] Comment on above: Performed By: #### L [id number] ####Maint Mechanic: AMAN SANTOS ([phone])[facility] [place] (SBHLAB)[address] [place] [address] [place] MUCUS (#/LPF) IN URINE SEDIMENT Few Normal Negative [facility] Comment on above: Performed By: #### L [id number] ####Maint Mechanic: AMAN SANTOS ([phone])[facility] [place] (SBHLAB)[address] NITRITE PRESENCE IN URINE Negative Normal Negative [facility] Comment on above: Performed By: #### L [id number] ####Maint Mechanic: AMAN SANTOS ([phone])[facility] [place] (SBHLAB)[address] pH (U) 5.5 [pH] Normal 5.0-8.0 [facility] Comment on above: Performed By: #### L [id number] ####Maint Mechanic: AMAN SANTOS ([phone])[facility] [place] (SBHLAB)[address] Protein (U) [Mass/Vol] 100 mg/dL Abnormal Negative [facility] Comment on above: Performed By: #### L [id number] ####Maint Mechanic: AMAN SANTOS ([phone])[facility] [place] (SBHLAB)[address] [place] [address] [place] RBC (#/HPF) IN URINE SEDIMENT 6-10 Abnormal 0-2 [facility] Comment on above: Performed By: #### L [id number] ####Maint Mechanic: AMAN SANTOS ([phone])[facility] [place] (SBHLAB)[address] Specific gravity (U) [Rel density] 1.019 Normal 1.005-1.030 [facility] Comment on above: Performed By: #### L [id number] ####Maint Mechanic: AMAN SANTOS ([id number])[facility] (SB[facility])[address] SQUAMOUS EPITHELIAL CELLS (#/HPF) IN URINE SEDIMENT 11-25 Abnormal 3-5 [facility] Comment on above: Performed By: #### L [id number] ####Maint Mechanic: AMAN SANTOS ([phone])[facility] (SB[facility])[address] UROBILINOGEN (MG/DL) IN URINE 3 mg/dL Abnormal Normal (0-1) [facility] Comment on above: Performed By: #### L [id number] ####Maint Mechanic: AMAN SANTOS ([phone])[facility] (SB[facility])[address] WBC (LEUKOCYTE) (#/HPF) IN URINE SEDIMENT 3-5 Normal 0-5 [facility] Comment on above: Performed By: #### L [id number] ####Maint Mechanic: AMAN SANTOS ([phone])[facility] (SBHLAB)[address] COMPREHENSIVE METABOLIC PANE Amaury 02-15-2024 Albumin [Mass/Vol] 3.9 g/dL Normal 3.4-4.8 [facility] Comment on above: Performed By: #### L AB149, LAB17 ####Maint Mechanic: AMAN SANTOS ([phone])[facility] (SB[facility])[address] [place] [address] [place] ALP [Catalytic activity/Vol] 84 U/L Normal 40-150 [facility] Comment on above: Performed By: #### L AB149, LAB17 ####Maint Mechanic: AMAN SANTOS ([phone])[facility] [place] (SBHLAB)[address] [place] [address] [place] ALT [Catalytic activity/Vol] 19 U/L Normal <30 [facility] Comment on above: Performed By: #### L AB149, LAB17 ####Maint Mechanic: AMAN SANTOS ([phone])[facility] [place] (SBHLAB)[address] Anion gap [Moles/Vol] 8 mmol/L Normal 3-13 [facility] Comment on above: Performed By: #### L AB149, LAB17 ####Maint Mechanic: AMAN SANTOS ([phone])[facility] [place] (SBHLAB)[address] AST [Catalytic activity/Vol] 16 U/L Normal <34 [facility] Comment on above: Performed By: #### L AB149, LAB17 ####Maint Mechanic: AMAN SANOTS ([phone])[facility] [place] (SBHLAB)[address] Bilirubin [Mass/Vol] 1.6 mg/dL High <1.2 [facility] Comment on above: Performed By: #### L AB149, LAB17 ####Maint Mechanic: AMAN SANTOS ([phone])[facility] [place] (SBHLAB)[address] [place] [address] [place] Calcium [Mass/Vol] 9.0 mg/dL Normal 8.8-10.0 [facility] Comment on above: Performed By: #### L AB149, LAB17 ####Maint Mechanic: AMAN SANTOS ([phone])[facility] [place] (SBHLAB)[address] [place] [address] [place] Chloride [Moles/Vol] 102 mmol/L Normal 98-107 [facility] Comment on above: Performed By: #### L AB149, LAB17 ####Maint Mechanic: AMAN SANTOS ([phone])[facility] [place] (SBHLAB)[address] [place] [address] [place] CO2 [Moles/Vol] 33 mmol/L High 23-31 [facility] Comment on above: Performed By: #### L AB149, LAB17 ####Maint Mechanic: AMAN SANTOS ([phone])[facility]ENTERBessy MARTINEZISAMARN (SBHLAB)[address] Creatinine [Mass/Vol] 0.56 mg/dL Low 0.57-1.11 [facility] Comment on above: Performed By: #### L AB149, LAB17 ####Maint Mechanic: AMAN SANTOS ([phone])[facility] (SB[facility])[address] GLOMERULAR FILTRATION RATE ML/MIN/1.73 SQ M.PREDICTED >90.0 Normal >60.0 [facility] Comment on above: Result Comment: Calc ulation based on the Chronic Kidney Disease Epidemiology Collaboration (CKD-EPI) equation refit without adjustment for race Performed By: #### L AB149, LAB17 ####Maint Mechanic: AMAN SANTOS ([phone])[facility]ENTER[facility]essy [place] (SBHLAB)[address] [place] [address] [place] Glucose [Mass/Vol] 130 mg/dL High 82-115 [facility] Comment on above: Performed By: #### L AB149, LAB17 ####Maint Mechanic: AMAN SANTOS ([phone])[facility] (SB[facility]AB)[address] [place] [address] [place] Potassium [Moles/Vol] 2.9 mmol/L Low 3.5-5.1 [facility] Comment on above: Performed By: #### L AB149, LAB17 ####Maint Mechanic: AMAN SANTOS ([phone])[facility] [place] (SBHLAB)[address] [place] [address] [place] Protein [Mass/Vol] 6.3 g/dL Low 6.4-8.3 [facility] Comment on above: Performed By: #### L AB149, LAB17 ####Maint Mechanic: AMAN SANTOS ([phone])[facility] [place] (SBHLAB)[address] Sodium [Moles/Vol] 143 mmol/L Normal 136-145 [facility] Comment on above: Performed By: #### L AB149, LAB17 ####Maint Mechanic: AMAN SANTOS ([phone])[facility] [place] (SBHLAB)[address] Urea nitrogen [Mass/Vol] 14 mg/dL Normal 9-23 [facility] Comment on above: Performed By: #### L AB149, LAB17 ####Maint Mechanic: AMAN SANTOS ([phone])[facility] (SBHLAB)[address] Albumin [Mass/Vol] 4.4 g/dL Normal 3.5-5.0 [facility] Comment on above: Performed By: #### L AB17 ####Maint Mechanic: AMAN SANTOS ([id number])[facility] (SB[facility])[address] ALP [Catalytic activity/Vol] 94 U/L Normal 38-126 [facility] Comment on above: Performed By: #### L AB17 ####Maint Mechanic: AMAN SANTOS ([phone])[facility] (SBHLAB)[address] ALT [Catalytic activity/Vol] 20 U/L Normal 0-34 [facility] Comment on above: Performed By: #### L AB17 ####Maint Mechanic: AMAN SANTOS ([phone])[facility] (SB[facility])[address] [place] [address] [place] Anion gap [Moles/Vol] 7 mmol/L Normal 3-13 [facility] Comment on above: Performed By: #### L AB17 ####Maint Mechanic: AMAN SANTOS ([phone])[facility] (SB[facility])[address] [place] [address] [place] AST [Catalytic activity/Vol] 18 U/L Normal 15-46 [facility] Comment on above: Performed By: #### L AB17 ####Maint Mechanic: AMAN SANTOS ([phone])[facility]ENTERBessy [facility] (SBHLAB)[address] Bilirubin [Mass/Vol] 1.8 mg/dL High 0.2-1.3 [facility] Comment on above: Performed By: #### L AB17 ####Maint Mechanic: AMAN SANTOS ([phone])[facility] (SB[facility])[address] Calcium [Mass/Vol] 9.1 mg/dL Normal 8.4-10.4 [facility] Comment on above: Performed By: #### L AB17 ####Maint Mechanic: AMAN HEARDOMID ([phone])[facility] (HLAB)[address] Chloride [Moles/Vol] 100 mmol/L Normal 98-107 [facility] Comment on above: Performed By: #### L AB17 ####Maint Mechanic: AMAN SANTOS ([phone])[facility] (HLAB)[address] CO2 [Moles/Vol] 36 mmol/L High 22-30 [facility] Comment on above: Performed By: #### L AB17 ####Maint Mechanic: AMAN SANTOS ([phone])[facility] (HLAB)[address] Creatinine [Mass/Vol] 0.69 mg/dL Normal 0.52-1.04 [facility] Comment on above: Performed By: #### L AB17 ####Maint Mechanic: AMAN SANTOS ([phone])[facility] ([facility])[address] GLOMERULAR FILTRATION RATE ML/MIN/1.73 SQ M.PREDICTED >90.0 Normal >60.0 [facility] Comment on above: Result Comment: Calc ulation based on the Chronic Kidney Disease Epidemiology Collaboration (CKD-EPI) equation refit without adjustment for race Performed By: #### L AB17 ####Maint Mechanic: AMAN SANTOS ([id number])[facility]ENTERBessy JUANYOSELYN ([facility])[address] Glucose [Mass/Vol] 108 mg/dL High 70-100 [facility] Comment on above: Performed By: #### L AB17 ####Maint Mechanic: AMAN SANTOS ([phone])[facility]ENTERBessy [facility] ([facility])[address] Potassium [Moles/Vol] 3.1 mmol/L Low 3.5-5.1 [facility] Comment on above: Performed By: #### L AB17 ####Maint Mechanic: AMAN SANTOS ([phone])[facility] ([facility])[address] Protein [Mass/Vol] 7.1 g/dL Normal 6.3-8.2 [facility] Comment on above: Performed By: #### L AB17 ####Maint Mechanic: AMAN SANTOS ([phone])[facility]ITAL[facility] ([facility])[address] Sodium [Moles/Vol] 143 mmol/L Normal 135-145 [facility] Comment on above: Performed By: #### L AB17 ####Maint Mechanic: AMAN SANTOS ([phone])[facility] ([facility])[address] Urea nitrogen [Mass/Vol] 17 mg/dL Normal 7-17 [facility] Comment on above: Performed By: #### L AB17 ####Maint Mechanic: AMAN SANTOS ([phone])[facility] ([facility])[address] CRP [Mass/Vol]Ordered By: St sukhi Alvarez on 02-15-2024 Interpretation and review of laboratory results Abnormal [facility] CT LUMBAR SPINE WO IV CONTRA STon 02-15-2024 CT LUMBAR SPINE WO IV CONTRAST Normal [facility] CT Lumbar spine WO contrasto n [...] MD Electronically Signed Date/Time: 02/15/2024 1:29 PM [facility] Patient Name: ALTA MOYA : [...] A persistent pericardial effusion is partially imaged. [facility] Azucena Yanez MD - 02/15/2024 [...] Electronically Signed Date/Time: 02/15/2024 1:29 PM EST [facility] CT Lumbar spine WO contrastO rdered By: Azucena Yanez on 02-15-2024 [facility] Work Phone: Comprehensive metabolic 1998 panelon 02-15-2024 Albumin [Mass/Vol] 3.9 g/dL 3.4 - 4.8 g/dL [facility] ALP [Catalytic activity/Vol] 84 U/L 40 - 150 U/L [facility] ALT [Catalytic activity/Vol] 19 U/L NINF - 30 U/L [facility] Anion gap [Moles/Vol] 8 mmol/L 3 - 13 mmol/L [facility] AST [Catalytic activity/Vol] 16 U/L NINF - 34 U/L [facility] Bilirubin [Mass/Vol] 1.6 mg/dL High NINF - 1.2 mg/dL [facility] Calcium [Mass/Vol] 9 mg/dL 8.8 - 10. 0 mg/dL [facility] Chloride [Moles/Vol] 102 mmol/L 98 - 10 7 mmol/L [facility] CO2 [Moles/Vol] 33 mmol/L High 23 - 31 mmol/L [facility] Creatinine [Mass/Vol] 0.56 mg/dL Low 0.57 - 1.11 mg/dL [facility] GFR/1.73 sq M.predicted (S/P/Bld) [Vol rate/Area] - PINF [facility] Comment on above: Calculation based on the Chronic Kidney Disease Epidemiology Collaboration (CKD-EPI) equation refit without adjustment for race Glucose [Mass/Vol] 130 mg/dL High 82 - 115 mg/dL [facility] Interpretation and review of laboratory results Abnormal [facility] Potassium [Moles/Vol] 2.9 mmol/L Low 3.5 - 5.1 mmol/L [facility] Protein [Mass/Vol] 6.3 g/dL Low 6.4 - 8.3 g/dL [facility] Sodium [Moles/Vol] 143 mmol/L 136 - 145 mmol/L [facility] Urea nitrogen [Mass/Vol] 14 mg/dL 9 - 23 mg/dL [facility] Albumin [Mass/Vol] 4.4 g/dL 3.5 - 5.0 g/dL [facility] ALP [Catalytic activity/Vol] 94 U/L 38 - 126 U/L [facility] ALT [Catalytic activity/Vol] 20 U/L 0 - 34 U/L [facility] Anion gap [Moles/Vol] 7 mmol/L 3 - 13 mmol/L [facility] AST [Catalytic activity/Vol] 18 U/L 15 - 46 U/L [facility] Bilirubin [Mass/Vol] 1.8 mg/dL High 0.2 - 1 .3 mg/dL [facility] Calcium [Mass/Vol] 9.1 mg/dL 8.4 - 10. 4 mg/dL [facility] Chloride [Moles/Vol] 100 mmol/L 98 - 10 7 mmol/L [facility] CO2 [Moles/Vol] 36 mmol/L High 22 - 30 mmol/L [facility] Creatinine [Mass/Vol] 0.69 mg/dL 0.52 - 1.04 mg/dL [facility] GFR/1.73 sq M.predicted (S/P/Bld) [Vol rate/Area] - PINF [facility] Comment on above: Calculation based on the Chronic Kidney Disease Epidemiology Collaboration (CKD-EPI) equation refit without adjustment for race Glucose [Mass/Vol] 108 mg/dL High 70 - 100 mg/dL [facility] Interpretation and review of laboratory results Abnormal [facility] Potassium [Moles/Vol] 3.1 mmol/L Low 3.5 - 5.1 mmol/L [facility] Protein [Mass/Vol] 7.1 g/dL 6.3 - 8.2 g/dL [facility] Sodium [Moles/Vol] 143 mmol/L 135 - 145 mmol/L [facility] Urea nitrogen [Mass/Vol] 17 mg/dL 7 - 17 mg/dL [facility] Consulton 02-15-2024 Consult [facility] Consult Vancomycin therapy h as been discontinued by Dr. Gracia on 02-15-24. Thank you for the consult. Pharmacy signing off for vancomycin dosing. Diane Coto [facility], Date: 02/15/24 Time: 1:50 PM [facility] Consult Normal [facility] ECG 12-LEADon 02-15-2024 ECG 12-LEAD IMPRESSION: SINUS ARRHYTHMIA Probable anterior infarct, age indeterminate Electronically Signed On 02-15-2024 13:42:34 EST by Ovidio Price Normal [facility] ED Nursing Noteon 02-15-2024 ED Nursing Note Attempted PIV x2 unsuccessfully; asked another RN for assistance. Normal [facility] LACTIC ACID WITH REFLEXon Lactate [Moles/Vol] 1.4 mmol/L Normal 0.7-2.0 [facility] Comment on above: Performed By: #### L [id number] ####Maint Mechanic: AMAN SANTOS ([phone])[facility] (SBHLAB)[address] [place] [address] Laboratory - Chemistry and C hemistry - challengeOrdered By: Ino Alvarez on 02-15-2024 CRP [Mass/Vol] 39.3 mg/L High NINF - 5.0 mg/L [facility] Laboratory - Chemistry and C hemistry - challengeon 02-15-2024 Lactate [Moles/Vol] 1.4 mmol/L 0.7 - 2. 0 mmol/L [facility] Laboratory - Hematology and Cell countson 02-15-2024 Anisocytosis Ql (Bld) Slight Abnormal (none) [facility] Band form neutrophils (Bld) [#/Vol] 0.4 10*3/uL High NINF - 0.0 10*3/uL [facility] Band form neutrophils/100 WBC (Bld) 2 % High NINF - 0 % [facility] Dacrocytes LM Ql (Bld) Rare Abnormal (none) [facility] Giant platelets LM Ql (Bld) Rare Abnormal (none) [facility] Hypochromia Ql (Bld) Slight Abnormal (none) [facility] Lymphocytes (Bld) [#/Vol] 1 10*3/uL 1.0 - 4.3 10*3/uL [facility] Lymphocytes/100 WBC (Bld) 5 % Low 15 - 45 % [facility] Monocytes (Bld) [#/Vol] 4.9 10*3/uL High 0.0 - 0.9 10*3/uL [facility] Monocytes/100 WBC (Bld) 25 % High 5 - 13 % [facility] Neutrophils (Bld) [#/Vol] 13.6 10*3/uL High [...] BLOOD BY LIGHT MICROSCOPY Slight Abnormal (none) [facility] Comment on above: Performed By: #### L [id number], [id number] ####Maint Mechanic: AMAN SANTOS ([id number])[facility] [place] (SBHLAB)[address] BAND NEUTROPHILS TOTAL PER COUNTED LEUKOCYTES BY MANUAL COUNT 2 Normal [facility] Comment on above: Performed By: #### L [id number], [id number] ####Maint Mechanic: AMAN SANTOS ([phone])[facility] [place] (SBHLAB)[address] BANDS (10*3/UL) IN BLOOD-CELLAVISION 0.4 10*3/uL High <=0.0 [facility] Comment on above: Performed By: #### L [id number], [id number] ####Maint Mechanic: AMAN SANTOS ([phone])[facility] [place] (SBHLAB)[address] BASOPHILS TOTAL PER COUNTED LEUKOCYTES BY MANUAL COUNT Normal [facility] Comment on above: Performed By: #### L [id number], [id number] ####Maint Mechanic: AMAN SANTOS ([phone])[facility] [place] (SBHLAB)[address] BLASTS TOTAL PER COUNTED LEUKOCYTES BY MANUAL COUNT Normal [facility] Comment on above: Performed By: #### L [id number], [id number] ####Maint Mechanic: AMAN SANTOS ([phone])[facility] [place] (SBHLAB)[address] DACROCYTES PRESENCE IN BLOOD BY LIGHT MICROSCOPY Rare Abnormal (none) [facility] Comment on above: Performed By: #### L [id number], [id number] ####Maint Mechanic: AMAN SANTOS ([phone])[facility] [place] (SBHLAB)[address] EOSINOPHILS TOTAL PER COUNTED LEUKOCYTES BY MANUAL COUNT Normal [facility] Comment on above: Performed By: #### L [id number], [id number] ####Maint Mechanic: AMAN SANTOS ([phone])[facility] [place] (SBHLAB)[address] HYPERSEGMENTED NEUTROPHILS IN BLOOD BY LIGHT MICROSCOPY (PRESENT) Present Abnormal (none) [facility] Comment on above: Performed By: #### L [id number], [id number] ####Maint Mechanic: AMAN SANTOS ([id number])[facility] [place] (SBHLAB)[address] HYPOCHROMIA (PRESENCE) IN BLOOD BY LIGHT MICROSCOPY Slight Abnormal (none) [facility] Comment on above: Performed By: #### L [id number], [id number] ####Maint Mechanic: AMAN SANTOS ([id number])[facility] [place] (SBHLAB)[address] [place] [address] [place] LYMPHOCYTES (10*3/UL) IN BLOOD-CELLAVISION 1.0 10*3/uL Normal 1.0-4.3 [facility] Comment on above: Performed By: #### L [id number], [id number] ####Maint Mechanic: AMAN SANTOS ([phone])[facility] [place] (SBHLAB)[address] [place] [address] [place] LYMPHOCYTES TOTAL PER COUNTED LEUKOCYTES BY MANUAL COUNT 5 Normal [facility] Comment on above: Performed By: #### L [id number], [id number] ####Maint Mechanic: AMAN SANTOS ([phone])[facility] [place] (SBHLAB)[address] [place] [address] [place] LYMPHOCYTES/100 LEUKOCYTES IN BLOOD-CELLAVISION 5 % Low 15-45 [facility] Comment on above: Performed By: #### L [id number], [id number] ####Maint Mechanic: AMAN SANTOS ([phone])[facility] [place] (SBHLAB)[address] [place] [address] [place] METAMYELOCYTES TOTAL PER COUNTED LEUKOCYTES BY MANUAL COUNT Normal [facility] Comment on above: Performed By: #### L [id number], [id number] ####Maint Mechanic: AMAN [id number])[facility] [place] (SBHLAB)[address] [place] [address] [place] MONOCYTES (10*3/UL) IN BLOOD-CELLAVISION 4.9 10*3/uL High 0.0-0.9 [facility] Comment on above: Performed By: #### L [id number], [id number] ####Maint Mechanic: AMAN SANTOS ([phone])[facility] [place] (SBHLAB)[address] MONOCYTES TOTAL PER COUNTED LEUKOCYTES BY MANUAL COUNT 25 Normal [facility] Comment on above: Performed By: #### L [id number], [id number] ####Maint Mechanic: MAAN SANTOS ([phone])[facility] [place] (SBHLAB)[address] [place] [address] [place] MONOCYTES/100 LEUKOCYTES IN BLOOD-IBETH 25 % High 5-13 [facility] Comment on above: Performed By: #### L [id number], [id number] ####Maint Mechanic: AMAN SANTOS ([phone])[facility] [place] (SBHLAB)[address] [place] [address] [place] MYELOCYTES COUNTED BY MANUAL COUNT [facility] Comment on above: Performed By: #### L [id number], [id number] ####Maint Mechanic: AMAN SANTOS ([id number])[facility] [place] ([facility])[address] [place] [address] [place] NEUTROPHILS BAND FORM/100 LEUKOCYTES IN BLOOD-CELLAVISI 2 % High <=0 [facility] Comment on above: Performed By: #### L [id number], [id number] ####Maint Mechanic: AMAN SANTOS ([phone])[facility] [place] ([facility])[address] [place] [address] [place] NEUTROPHILS TOTAL PER COUNTED LEUKOCYTES BY MANUAL COUNT 69 Normal [facility] Comment on above: Performed By: #### L [id number], [id number] ####Maint Mechanic: AMAN SANTOS ([id number])[facility] [place] (SBHLAB)[address] OVALOCYTES PRESENCE IN BLOOD BY LIGHT MICROSCOPY Slight Abnormal (none) [facility] Comment on above: Performed By: #### L [id number], [id number] ####Maint Mechanic: AMAN SANTOS ([phone])[facility] [place] ([facility])[address] PLATELETS GIANT PRESENCE IN BLOOD BY LIGHT MICROSCOPY Rare Abnormal (none) [facility] Comment on above: Performed By: #### L [id number], [id number] ####Maint Mechanic: AMAN SANTOS ([phone])[facility] [place] ([facility])[address] POIKILOCYTOSIS (PRESENCE) IN BLOOD BY LIGHT MICROSCOPY Slight Abnormal (none) [facility] Comment on above: Performed By: #### L [id number], [id number] ####Maint Mechanic: AMAN SANTOS ([phone])[facility] [place] ([facility])[address] POLYCHROMASIA IN BLOOD BY LIGHT MICROSCOPY Slight Abnormal (none) [facility] Comment on above: Performed By: #### L [id number], [id number] ####Maint Mechanic: AMAN SANTOS ([phone])[facility] [place] (SB[facility])[address] [place] [address] [place] PROMYELOCYTES TOTAL PER COUNTED LEUKOCYTES BY MANUAL COUNT Normal [facility] Comment on above: Performed By: #### L [id number], [id number] ####Maint Mechanic: AMAN SANTOS ([phone])[facility] [place] ([facility])[address] [place] [address] [place] RBC MORPHOLOGY IN BLOOD abnormal Normal [facility] Comment on above: Performed By: #### L [id number], [id number] ####Maint Mechanic: AMAN SANTOS ([phone])[facility] [place] ([facility])[address] [place] [address] [place] SEGMENTED NEUTROPHILS (10*3/UL) IN BLOOD-CELLAVISION 13.6 10*3/uL High 1.8-7.5 [facility] Comment on above: Performed By: #### L [id number], [id number] ####Maint Mechanic: AMAN HEARDOMID ([phone])[facility] [place] ([facility])[address] SEGMENTED NEUTROPHILS/100 LEUKOCYTES-CE 68 % Normal 38-82 [facility] Comment on above: Performed By: #### L [id number], [id number] ####Maint Mechanic: AMAN HEARDOMID ([phone])[facility] [place] ([facility])[address] [place] [address] [place] STOMATOCYTES IN BLOOD BY LIGHT MICROSCOPY Moderate Abnormal (none) [facility] Comment on above: Performed By: #### L [id number], [id number] ####Maint Mechanic: AMAN SANTOS ([phone])[facility] ([facility] UNCLASSIFIED CELLS TOTAL PER COUNTED LEUKOCYTES BY MANUAL COUNT Normal [facility] Comment on above: Performed By: #### L [id number], [id number] ####Maint Mechanic: AMAN HEARDOMID ([phone])[facility] [place] ([facility])[address] VARIANT LYMPHOCYTES TOTAL PER COUNTED LEUKOCYTES BY MANUAL COUNT Normal [facility] Comment on above: Performed By: #### L [id number], [id number] ####Maint Mechanic: AMAN SANTOS ([phone])[facility] [place] ([facility])[address] [place] [address] [place] ANISOCYTOSIS PRESENCE IN BLOOD BY LIGHT MICROSCOPY Slight Abnormal (none) [facility] Comment on above: Performed By: #### L [id number], [id number] ####Maint Mechanic: AMAN SANTOS ([phone])[facility] ([facility] [place] [address] [place] BAND NEUTROPHILS TOTAL PER COUNTED LEUKOCYTES BY MANUAL COUNT 3 Normal [facility] Comment on above: Performed By: #### L [id number], [id number] ####Maint Mechanic: AMAN SANTOS ([phone])[facility] [place] ([facility])[address] [place] [address] [place] BANDS (10*3/UL) IN BLOOD-CELLAVISION 0.6 10*3/uL High <=0.0 [facility] Comment on above: Performed By: #### L [id number], [id number] ####Maint Mechanic: AMAN SANTOS ([phone])[facility] [place] ([facility])[address] [place] [address] [place] BASOPHILS TOTAL PER COUNTED LEUKOCYTES BY MANUAL COUNT Normal [facility] Comment on above: Performed By: #### L [id number], [id number] ####Maint Mechanic: AMAN SANTOS ([phone])[facility] [place] ([facility])[address] [place] [address] [place] BLASTS TOTAL PER COUNTED LEUKOCYTES BY MANUAL COUNT Normal [facility] Comment on above: Performed By: #### L [id number], [id number] ####Maint Mechanic: AMAN SANTOS ([phone])[facility] [place] ([facility])[address] [place] [address] [place] EOSINOPHILS (10*3/UL) IN BLOOD-CELLAVISION 0.2 10*3/uL Normal 0.0-0.5 [facility] Comment on above: Performed By: #### L [id number], [id number] ####Maint Mechanic: AMAN SANTOS ([phone])[facility] [place] ([facility])[address] [place] [address] [place] EOSINOPHILS TOTAL PER COUNTED LEUKOCYTES BY MANUAL COUNT 1 Normal 0-1 [facility] Comment on above: Performed By: #### L [id number], [id number] ####Maint Mechanic: AMAN SANTOS ([phone])[facility] [place] ([facility])[address] [place] [address] [place] EOSINOPHILS/100 LEUKOCYTES IN BLOOD-CELLAVISION 1 % Normal 0-6 [facility] Comment on above: Performed By: #### L [id number], [id number] ####Maint Mechanic: AMAN SANTOS ([phone])[facility] [place] ([facility])[address] [place] [address] [place] LYMPHOCYTES (10*3/UL) IN BLOOD-CELLAVISION 0.9 10*3/uL Low 1.0-4.3 [facility] Comment on above: Performed By: #### L [id number], [id number] ####Maint Mechanic: AMAN SANTOS ([phone])[facility] [place] ([facility])[address] [place] [address] [place] LYMPHOCYTES TOTAL PER COUNTED LEUKOCYTES BY MANUAL COUNT 4 Normal [facility] Comment on above: Performed By: #### L [id number], [id number] ####Maint Mechanic: AMAN SANTOS ([phone])[facility] [place] ([facility])[address] [place] [address] [place] LYMPHOCYTES/100 LEUKOCYTES IN BLOOD-CELLAVISION 4 % Low 15-45 [facility] Comment on above: Performed By: #### L [id number], [id number] ####Maint Mechanic: AMAN SANTOS ([phone])[facility] [place] ([facility])[address] [place] [address] [place] METAMYELOCYTES TOTAL PER COUNTED LEUKOCYTES BY MANUAL COUNT Normal [facility] Comment on above: Performed By: #### L [id number], [id number] ####Maint Mechanic: AMAN SANTOS ([phone])[facility] [place] ([facility])[address] [place] [address] [place] MONOCYTES (10*3/UL) IN BLOOD-CELLAVISION 2.3 10*3/uL High 0.0-0.9 [facility] Comment on above: Performed By: #### L [id number], [id number] ####Maint Mechanic: AMAN SANTOS ([phone])[facility] [place] (SB[facility])[address] [place] [address] [place] MONOCYTES TOTAL PER COUNTED LEUKOCYTES BY MANUAL COUNT 11 Normal [facility] Comment on above: Performed By: #### L [id number], [id number] ####Maint Mechanic: AMAN SANTOS ([phone])[facility] [place] (SB[facility])[address] [place] [address] [place] MONOCYTES/100 LEUKOCYTES IN BLOOD-IBETH 11 % Normal 5-13 [facility] Comment on above: Performed By: #### L [id number], [id number] ####Maint Mechanic: AMAN SANTOS ([phone])[facility] [place] ([facility])[address] [place] [address] [place] MYELOCYTES COUNTED BY MANUAL COUNT Normal [facility] Comment on above: Performed By: #### L [id number], [id number] ####Maint Mechanic: AMAN SANTOS ([phone])[facility] [place] ([facility])[address] [place] [address] [place] NEUTROPHILS BAND FORM/100 LEUKOCYTES IN BLOOD-CELLAVISI 3 % High <=0 [facility] Comment on above: Performed By: #### L [id number], [id number] ####Maint Mechanic: AMAN SANTOS ([phone])[facility] [place] ([facility])[address] [place] [address] [place] NEUTROPHILS TOTAL PER COUNTED LEUKOCYTES BY MANUAL COUNT 83 Normal [facility] Comment on above: Performed By: #### L [id number], [id number] ####Maint Mechanic: AMAN SANTOS ([phone])[facility] [place] ([facility])[address] [place] [address] [place] POIKILOCYTOSIS (PRESENCE) IN BLOOD BY LIGHT MICROSCOPY Slight Abnormal (none) [facility] Comment on above: Performed By: #### L [id number], [id number] ####Maint Mechanic: AMAN SANTOS ([phone])[facility] [place] ([facility])[address] [place] [address] [place] PROMYELOCYTES TOTAL PER COUNTED LEUKOCYTES BY MANUAL COUNT Normal [facility] Comment on above: Performed By: #### L [id number], [id number] ####Maint Mechanic: AMAN SANTOS ([phone])[facility] [place] ([facility])[address] [place] [address] [place] RBC MORPHOLOGY IN BLOOD abnormal Normal [facility] Comment on above: Performed By: #### L [id number], [id number] ####Maint Mechanic: AMAN SANTOS ([phone])[facility] [place] ([facility])[address] [place] [address] [place] SEGMENTED NEUTROPHILS (10*3/UL) IN BLOOD-CELLAVISION 17.9 10*3/uL High 1.8-7.5 [facility] Comment on above: Performed By: #### L [id number], [id number] ####Maint Mechanic: AMAN SANTOS ([phone])[facility] [place] ([facility])[address] [place] [address] [place] SEGMENTED NEUTROPHILS/100 LEUKOCYTES-CE 81 % Normal 38-82 [facility] Comment on above: Performed By: #### L [id number], [id number] ####Maint Mechanic: AMAN SANTOS ([phone])[facility] [place] ([facility])[address] [place] [address] [place] STOMATOCYTES IN BLOOD BY LIGHT MICROSCOPY Moderate Abnormal (none) [facility] Comment on above: Performed By: #### L [id number], [id number] ####Maint Mechanic: AMAN SANTOS ([phone])[facility] [place] ([facility])[address] [place] [address] [place] UNCLASSIFIED CELLS TOTAL PER COUNTED LEUKOCYTES BY MANUAL COUNT Normal [facility] Comment on above: Performed By: #### L [id number], [id number] ####Maint Mechanic: AMAN SANTOS ([phone])[facility] [place] ([facility])[address] [place] [address] [place] VARIANT LYMPHOCYTES TOTAL PER COUNTED LEUKOCYTES BY MANUAL COUNT Normal [facility] Comment on above: Performed By: #### L [id number], [id number] ####Maint Mechanic: AMAN SANTOS ([phone])[facility] (SBHLAB)[address] [place] [address] No Panel InformationOrdered By: Farhat Perdomo on 02-15-2024 P Lometa 0 degrees [facility] Work Phone: PA Interval 0 ms [facility] Work Phone: QRS Lometa 39 degrees [facility] Work Phone: QRSD Interval 78 ms [facility] Work Phone: QT Interval 318 ms [facility] Work Phone: QTC Interval 449 ms [facility] Work Phone: T Wave Lom[place] 211 degrees [facility] Work Phone: [facility] Work Phone: No Panel Informationon 02-14 Atrial [...] On 02-15-2024 18:40:19 EST by Farhat Perdomo [facility] SINUS ARRHYTHMIA Probable anterior infarct, age indeterminate Electronically Signed On 02-15-2024 13:42:34 EST by Ovidio Price Ovidio Fernandez MD - 02/15/2024 IMPRESSION: SINUS ARRHYTHMIA Probable anterior infarct, age indeterminate Electronically Signed On 02-15-2024 13:42:34 EST by Ovidio Price [facility] Atypical Lymphocytes Manual [facility] Bands Manual 2 [facility] Basophils Manual [facility] Blasts Manual [facility] Eosinophils Manual [facility] Interpretation and review of laboratory results Abnormal [facility] Lymphocytes Manual 5 [facility] Metamyelocytes Manual [facility] Monocytes Manual 25 [facility] Myelocytes Manual [facility] Neutrophils Manual 69 [facility] Promyelocytes Manual [facility] Unclassified Cells, Manual [facility] Atypical Lymphocytes Manual [facility] Bands Manual 3 [facility] Basophils Manual [facility] Blasts Manual [facility] Eosinophils Manual 1 0 - 1 [facility] Interpretation and review of laboratory results Abnormal [facility] Lymphocytes Manual 4 [facility] Metamyelocytes Manual [facility] Monocytes Manual 11 [facility] Myelocytes Manual [facility] Neutrophils Manual 83 [facility] Promyelocytes Manual [facility] Unclassified Cells, Manual [facility] Interpretation and review of laboratory results Normal [facility] No Panel InformationOrdered By: Ovidio Price on 02-15-2024 P Lometa 0 degrees [facility] Work Phone: PA Interval 0 ms [facility] Work Phone: [phone] QRS Lometa 79 degrees [facility] Work Phone: QRSD Interval 83 ms [facility] Work Phone: QT Interval 320 ms [facility] Work Phone: QTC Interval 392 ms [facility] Work Phone: T Wave Lometa -61 degrees [facility] Work Phone: [facility] Work Phone: Progress Noteon 02-15-2024 Progress Note Normal [facility] Progress Note Normal [facility] Progress Note PHYSICAL THERAPY [facility] Name/MRN: Alta Baker ([id number]) Date: 02/15/2024 PT orders received. Chart reviewed. CT lumbar spine exam ended but not resulted. Will await results prior to initiating therapy parish. Sherin Molina, PT Normal [facility] Urinalysis complete panel (U )Ordered By: Nano Contreras on 02-15-2024 Bacteria LM.HPF (Urine sed) [#/Area] Few Abnormal Negative /HPF [facility] Bilirubin Ql (U) Negative Negative mg/dL [facility] Clarity (U) Turbid Abnormal Clear [facility] Color (U) Yellow Lt. Yellow [facility] Epithelial cells.squamous LM.HPF (Urine sed) [#/Area] 11-25 Abnormal [facility] Glucose Ql (U) Normal Normal (<70) mg/dL [facility] Hemoglobin Ql (U) 0.1 mg/dL Abnormal Negative [facility] Hyaline casts Auto (Urine sed) [#/Area] 0-2 Abnormal Negative /LPF [facility] Interpretation and review of laboratory results Abnormal [facility] Ketones (U) [Mass/Vol] Negative Negat ute mg/dL [facility] Leukocyte esterase Test strip Ql (U) Negative Negative Ghada/uL [facility] Mucus LM.HPF (Urine sed) [#/Area] Few Negative /LPF [facility] Nitrite Ql (U) Negative Negative [facility] pH (U) 5.5 [pH] 5.0 - 8.0 pH [facility] Protein (U) [Mass/Vol] 100 mg/dL Abnormal Negative [facility] RBC LM.HPF (Urine sed) [#/Area] 6-10 Abnormal [facility] Specific gravity (U) [Rel density] 1.019 1.005 - 1.030 [facility] Urobilinogen (U) [Mass/Vol] 3 mg/dL Abnormal Normal (0-1) [facility] WBC LM.HPF (Urine sed) [#/Area] 3-5 [facility] Vital signsOrdered By: Farhat Perdomo on 02-15-2024 Heart rate 120 /min bpm [facility] Work Phone: Vital signsOrdered By: Ovidio Price on 02-15-2024 Heart rate 90 /min bpm [facility] Work Phone: XR Chest 2 Viewson 4 Cardiomegaly. Atelec tasis at the right lung base. Report Dictated on Electronically Signed By: Damien Alexandra MD Electronically Signed Date/Time: 02/15/2024 11:09 AM [facility] RADIOLOGY [facility] Patient Name: ALTA MOYA : [...] pleural effusion. The osseous structures are unremarkable. [facility] Damien Alexandra MD - 02/15/2024 Patient [...] MD Electronically Signed Date/Time: 02/15/2024 11:09 AM [id number] XR Chest 2 ViewsOrdered By: Damien Alexandra on 02-15-2024 [facility] Work Phone: XR Chest Single viewon 02-14 1. No acute cardiopulmonary process. 2. Cardiomegaly. Report Dictated on Electronically Signed By: Brayden Hernandez MD Electronically Signed Date/Time: 02/15/2024 1:50 AM [facility] [employer] Patient Name: ALTA MOYA : 1950 [...] changes of the thoracic spine are noted. [facility] Brayden Hernandez MD - 02/15/2024 Patient [...] Electronically Signed Date/Time: 02/15/2024 1:50 AM EST [facility] Radiology Study observation (narrative) [facility] XR Chest Single viewOrdered By: Brayden Hernandez on 02-15-2024 [facility] Work Phone: 29on 02-14-2024 29 Addended by: NESTOR MENDOZA on: 02/14/2024 01:12 PM Modules accepted: Orders Normal [facility] 36on 02-14-2024 36 Normal [facility] 36 Triage message revie wed with clinical staff. Patient appointment confirmed. PCP will assess at appointment visit. Normal [facility] CBC W Auto Differential pane l (Bld)Ordered By: Ashley Llamas on 02-14-2024 Basophils (Bld) [#/Vol] 0 10*3/uL 0.0 - 0.2 10*3/uL [facility] Basophils/100 WBC (Bld) 0.1 % 0.0 - 2.0 % [facility] Eosinophils (Bld) [#/Vol] 0 10*3/uL 0.0 - 0.5 10*3/uL [facility] Eosinophils/100 WBC (Bld) 0 % 0.0 - 6.0 % [facility] Erythrocyte distribution width (RBC) [Ratio] 16.5 % High 11.5 - 15.0 % [facility] Hematocrit (Bld) [Volume fraction] 37.6 % 35.0 - 47.0 % [facility] Hemoglobin (Bld) [Mass/Vol] 11.8 g/dL 11.7 - 16.0 g/dL [facility] Immature granulocytes (Bld) [#/Vol] 0.4 10*3/uL High NINF - 0.1 10*3/uL [facility] Immature granulocytes/100 WBC (Bld) 1.5 % 0.0 - 2.0 % [facility] Interpretation and review of laboratory results Abnormal [facility] Lymphocytes (Bld) [#/Vol] 1.1 10*3/uL 1.0 - 4.3 10*3/uL [facility] Lymphocytes/100 WBC (Bld) 4.2 % Low 15.0 - 45.0 % [facility] MCH (RBC) [Entitic mass] 28.6 pg 26.0 - 34.0 pg [facility] MCHC (RBC) [Mass/Vol] 31.4 % 30.5 - 36.0 % [facility] MCV (RBC) [Entitic vol] 91 fL 77.0 - 99.0 fL [facility] Monocytes (Bld) [#/Vol] 6.1 10*3/uL High 0.0 - 0.9 10*3/uL [facility] Monocytes/100 WBC (Bld) 24.1 % High 5.0 - 13.0 % [facility] Neutrophils (Bld) [#/Vol] 17.7 10*3/uL High 1.8 - 7.5 10*3/uL [facility] Neutrophils/100 WBC (Bld) 70.1 % 38.0 - 82.0 % [facility] Nucleated RBC/100 WBC (Bld) [Ratio] 0 % [facility] Platelet mean volume (Bld) [Entitic vol] 12.7 fL 9.0 - 12.7 fL [facility] Comment on above: MPV is a calculated measurement using platelet volume ratio Platelets (Bld) [#/Vol] 114 10*3/uL Low 140 - 440 10*3/uL [facility] RBC (Bld) [#/Vol] 4.13 10*6/uL 3.80 - 5.2 0 10*6/uL [facility] WBC (Bld) [#/Vol] 25.3 10*3/uL High 3.6 - 10.7 10*3/uL [facility] CBC WITH AUTO DIFFERENTIALon 02-14-2024 Basophils (Bld) [#/Vol] 0.0 10*3/uL Normal 0.0-0.2 [facility] Comment on above: Performed By: #### Manpreet [id number], [id number] ####Maint Mechanic: VIVIAN PANTOJA ([phone])[facility] [place] (SWRLAB)[address] [place] [address] [place] Basophils/100 WBC (Bld) 0.1 % Normal 0.0-2.0 [facility] Comment on above: Performed By: #### Manpreet [id number], [id number] ####Maint Mechanic: VIVIAN PANTOJA ([phone])[facility] [place] (SWRL[facility])[address] [place] [address] [place] Eosinophils (Bld) [#/Vol] 0.0 10*3/uL Normal 0.0-0.5 [facility] Comment on above: Performed By: #### Manpreet [id number], [id number] ####Maint Mechanic: VIVIAN PANTOJA ([phone])[facility] [place] (SWRL[facility])[address] [place] [address] [place] Eosinophils/100 WBC (Bld) 0.0 % Normal 0.0-6.0 [facility] Comment on above: Performed By: #### L [id number], [id number] ####Maint Mechanic: VIVIAN PANTOJA ([phone])[facility] [place] (SWRL[facility])[address] [place] [address] Erythrocyte distribution width (RBC) [Ratio] 16.5 % High 11.5-15.0 [facility] Comment on above: Performed By: #### Manpreet [id number], [id number] ####Maint Mechanic: VIVIAN PANTOJA ([phone])[facility] [place] (SWRLAB)[address] [place] [address] Hematocrit (Bld) [Volume fraction] 37.6 % Normal 35.0-47.0 [facility] Comment on above: Performed By: #### Manpreet [id number], [id number] ####Maint Mechanic: VIVIAN PANTOJA ([phone])[facility] [place] (SWRL[facility])[address] [place] [address] Hemoglobin (Bld) [Mass/Vol] 11.8 g/dL Normal 11.7-16.0 [facility] Comment on above: Performed By: #### Manpreet [id number], [id number] ####Maint Mechanic: VIVIAN PANTOJA ([phone])[facility] [place] ([facility]RL[facility])[address] [place] [address] IMMATURE GRANS % 1.5 % Normal 0.0-2.0 [facility] Comment on above: Performed By: #### Manpreet [id number], [id number] ####Maint Mechanic: VIVIAN PANTOJA ([phone])[facility] [place] ([facility]RL[facility])[address] [place] [address] IMMATURE GRANS ABSOLUTE 0.4 10*3/uL High <0.1 [facility] Comment on above: Performed By: #### Manpreet [id number], [id number] ####Maint Mechanic: VIVIAN PANTOJA ([phone])[facility] [place] ([facility]RL[facility])[address] [place] [address] Lymphocytes (Bld) [#/Vol] 1.1 10*3/uL Normal 1.0-4.3 [facility] Comment on above: Performed By: #### L [id number], [id number] ####Maint Mechanic: VIVIAN PANTOJA ([phone])[facility] [place] ([facility])[address] [place] [address] [place] Lymphocytes/100 WBC (Bld) 4.2 % Low 15.0-45.0 [facility] Comment on above: Performed By: #### L [id number], [id number] ####Maint Mechanic: VIVIAN PANTOJA ([phone])[facility] [place] ([facility]RL[facility])[address] [place] [address] MCH (RBC) [Entitic mass] 28.6 pg Normal 26.0-34.0 [facility] Comment on above: Performed By: #### L [id number], [id number] ####Maint Mechanic: VIVIAN PANTOJA ([phone])[facility] [place] (SWRL[facility])[address] [place] [address] MCHC 31.4 % Normal 30.5-36.0 [facility] Comment on above: Performed By: #### Manpreet [id number], [id number] ####Maint Mechanic: VIVIAN PANTOJA ([phone])[facility] [place] (SWRL[facility])[address] [place] [address] MCV (RBC) [Entitic vol] 91.0 fL Normal 77.0-99.0 [facility] Comment on above: Performed By: #### Manpreet [id number], [id number] ####Maint Mechanic: VIVIAN PANTOJA ([phone])[facility] [place] (SWRL[facility])[address] [place] [address] [place] Monocytes (Bld) [#/Vol] 6.1 10*3/uL High 0.0-0.9 [facility] Comment on above: Performed By: #### L [id number], [id number] ####Maint Mechanic: VIVIAN PANTOJA ([phone])[facility] [place] (SWRL[facility])[address] [place] [address] [place] Monocytes/100 WBC (Bld) 24.1 % High 5.0-13.0 [facility] Comment on above: Performed By: #### Manpreet [id number], [id number] ####Maint Mechanic: VIVIAN PANTOJA ([phone])[facility] [place] (SWRLAB)[address] [place] [address] NEUTROPHILS ABSOLUTE 17.7 10*3/uL High 1.8-7.5 [facility] Comment on above: Performed By: #### Manpreet [id number], [id number] ####Maint Mechanic: VIVIAN PANTOJA ([phone])[facility]ENTERBess[facility] FOX RIT[facility] (SWRLAB)[address] [place] [address] Neutrophils/100 WBC (Bld) 70.1 % Normal 38.0-82.0 [facility] Comment on above: Performed By: #### Manpreet [id number], [id number] ####Maint Mechanic: VIVIAN PANTOJA ([phone])[facility]ENTERBess[facility] (SWRLAB)[address] [place] [address] NRBC 0.0 /100 WBCs Normal 0.0-2.0 [facility] Comment on above: Performed By: #### Manpreet [id number], [id number] ####Maint Mechanic: VIVIAN PANTOJA ([phone])[facility]ENTERBess[facility] (SWRLAB)[address] [place] [address] Platelet mean volume (Bld) [Entitic vol] 12.7 fL Normal 9.0-12.7 [facility] Comment on above: Result Comment: MPV is a calculated measurement using platelet volume ratio Performed By: #### Manpreet [id number], [id number] ####Maint Mechanic: VIVIAN PANTOJA ([phone])[facility]ENTERBess[facility] (SWRLAB)[address] [place] [address] Platelets (Bld) [#/Vol] 114 10*3/uL Low 140-440 [facility] Comment on above: Performed By: #### Manpreet [id number], [id number] ####Maint Mechanic: VIVIAN PANTOJA ([phone])[facility]ENTERBess[facility] (SWRLAB)[address] RBC (Bld) [#/Vol] 4.13 10*6/uL Normal 3.80-5.20 [facility] Comment on above: Performed By: #### Manpreet [id number], [id number] ####Maint Mechanic: VIVIAN PANTOJA ([phone])[facility]ENTERB[facility] (SWRLAB)[address] WBC (Bld) [#/Vol] 25.3 10*3/uL High 3.6-10.7 [facility] Comment on above: Performed By: #### Manpreet [id number], [id number] ####Maint Mechanic: VIVIAN PANTOJA ([phone])[facility]ENTERB[facility] (SWRLAB)[address] COMPREHENSIVE METABOLIC PANE Amaury 02-14-2024 Albumin [Mass/Vol] 4.1 g/dL Normal 3.5-5.0 [facility] Comment on above: Performed By: #### Manpreet [id number], [id number] ####Maint Mechanic: VIVIAN PANTOJA ([phone])[facility]ENTERB[facility] (SWRLAB)[address] ALP [Catalytic activity/Vol] 80 U/L Normal 38-126 [facility] Comment on above: Performed By: #### L AB99, LAB17 ####Maint Mechanic: VIVIAN PANTOJA ([phone])[facility]ENTERB[facility] (SWRLAB)[address] ALT [Catalytic activity/Vol] 20 U/L Normal 0-34 [facility] Comment on above: Performed By: #### L AB99, LAB17 ####Maint Mechanic: VIVIAN PANTOJA ([phone])[facility]ENTERB[facility] (SWRLAB)[address] Anion gap [Moles/Vol] 8 mmol/L Normal 3-13 [facility] Comment on above: Performed By: #### L ASHWINI, LAB17 ####Maint Mechanic: VIVIAN PANTOJA ([phone])[facility]ENTERB[facility] (SWRLAB)[address] AST [Catalytic activity/Vol] 20 U/L Normal 15-46 [facility] Comment on above: Performed By: #### L ASHWINI, LAB17 ####Maint Mechanic: VIVIAN PANTOJA ([phone])[facility]ENTERBessy MARTINEZRUDDY RITTMAN (SWRLAB)[address] Bilirubin [Mass/Vol] 2.3 mg/dL High 0.2-1.3 [facility] Comment on above: Performed By: #### Manpreet MARADIAGA, LAB17 ####Maint Mechanic: VIVIAN PANTOJA ([phone])[facility]ENTERBessy MARTINEZRUDDY RITTMAN (SWRLAB)[address] Calcium [Mass/Vol] 9.6 mg/dL Normal 8.4-10.4 [facility] Comment on above: Performed By: #### Manpreet MARADIAGA, LAB17 ####Maint Mechanic: VIVIAN PANTOJA ([phone])[facility]ENTERBessy MARTINEZRUDDY RITTMAN (SWRLAB)[address] [place] [address] [place] Chloride [Moles/Vol] 99 mmol/L Normal 98-107 [facility] Comment on above: Performed By: #### L AB99, LAB17 ####Maint Mechanic: VIVIAN PANTOJA ([phone])[facility]ENTERBessy MARTINEZRUDDY RITTMAN (SWRLAB)[address] [place] [address] [place] CO2 [Moles/Vol] 33 mmol/L High 22-30 [facility] Comment on above: Performed By: #### L AB99, LAB17 ####Maint Mechanic: VIVIAN PANTOJA ([phone])[facility]ENTERBessy MARTINEZRUDDY RITTMAN (SWRLAB)[address] [place] [address] [place] Creatinine [Mass/Vol] 0.56 mg/dL Normal 0.52-1.04 [facility] Comment on above: Performed By: #### Manpreet MARADIAGA, LAB17 ####Maint Mechanic: VIVIAN PANTOJA ([phone])[facility]ENTERBessy SIDDIQUITMAN (SWRLAB)[address] [place] [address] GLOMERULAR FILTRATION RATE ML/MIN/1.73 SQ M.PREDICTED >90.0 Normal >60.0 [facility] Comment on above: Result Comment: Calc ulation based on the Chronic Kidney Disease Epidemiology Collaboration (CKD-EPI) equation refit without adjustment for race Performed By: #### Manpreet MARADIAGA, [id number] ####Maint Mechanic: VIVIAN PANTOJA ([phone])[facility]ENTERBessy SIDDIQUITMAN (SWRLAB)[address] [place] [address] Glucose [Mass/Vol] 129 mg/dL High 70-100 [facility] Comment on above: Performed By: #### Manpreet MARADIAGA, LAB17 ####Maint Mechanic: VIVIAN PANTOJA ([phone])[facility]ENTERBessy FOX [facility] (SWRLAB)[address] [place] [address] [place] Potassium [Moles/Vol] 4.0 mmol/L Normal 3.5-5.1 [facility] Comment on above: Performed By: #### Manpreet MARADIAGA, LAB17 ####Maint Mechanic: VIVIAN PANTOJA ([phone])[facility]ENTERBess[facility] (SWRLAB)[address] [place] [address] Protein [Mass/Vol] 6.7 g/dL Normal 6.3-8.2 [facility] Comment on above: Performed By: #### L ASHWINI, LAB17 ####Maint Mechanic: VIVIAN PANTOJA ([phone])[facility]ENTERB[facility] (SWRLAB)[address] [place] [address] [place] Sodium [Moles/Vol] 141 mmol/L Normal 135-145 [facility] Comment on above: Performed By: #### L AB99, LAB17 ####Maint Mechanic: VIVIAN PANTOJA ([phone])[facility] HOSPITALRUDDY CAIOAN (SWRLAB)[address] Urea nitrogen [Mass/Vol] 16 mg/dL Normal 7-17 [facility] Comment on above: Performed By: #### L AB99, LAB17 ####Maint Mechanic: VIVIAN PANTOJA ([phone])[facility] (SWRLAB)[address] Lumbar spine WO contrasto n 02-14-2024 Radiology Study observation (narrative) [facility] Comprehensive metabolic 1998 panelon 02-14-2024 Albumin [Mass/Vol] 4.1 g/dL 3.5 - 5.0 g/dL [facility] ALP [Catalytic activity/Vol] 80 U/L 38 - 126 U/L [facility] ALT [Catalytic activity/Vol] 20 U/L 0 - 34 U/L [facility] Anion gap [Moles/Vol] 8 mmol/L 3 - 13 mmol/L [facility] AST [Catalytic activity/Vol] 20 U/L 15 - 46 U/L [facility] Bilirubin [Mass/Vol] 2.3 mg/dL High 0.2 - 1 .3 mg/dL [facility] Calcium [Mass/Vol] 9.6 mg/dL 8.4 - 10. 4 mg/dL [facility] Chloride [Moles/Vol] 99 mmol/L 98 - 10 7 mmol/L [facility] CO2 [Moles/Vol] 33 mmol/L High 22 - 30 mmol/L [facility] Creatinine [Mass/Vol] 0.56 mg/dL 0.52 - 1.04 mg/dL [facility] GFR/1.73 sq M.predicted (S/P/Bld) [Vol rate/Area] - PINF [facility] Comment on above: Calculation based on the Chronic Kidney Disease Epidemiology Collaboration (CKD-EPI) equation refit without adjustment for race Glucose [Mass/Vol] 129 mg/dL High 70 - 100 mg/dL [facility] Interpretation and review of laboratory results Abnormal [facility] Potassium [Moles/Vol] 4 mmol/L 3.5 - 5.1 mmol/L [facility] Protein [Mass/Vol] 6.7 g/dL 6.3 - 8.2 g/dL [facility] Sodium [Moles/Vol] 141 mmol/L 135 - 145 mmol/L [facility] Urea nitrogen [Mass/Vol] 16 mg/dL 7 - 17 mg/dL [facility] ED Provider Noteon ED Provider Note Normal [facility] ESR (Bld) [Velocity]on 02-13 Interpretation and review of laboratory results Normal [facility] HIGH SENSITIVITY CRPon 02-13 CRP, HIGH SENSITIVITY 43.6 mg/L High <=3.0 [facility] Comment on above: Result Comment: LEOBARDO R COMMENTS:Classification for Cardiovascular Disease RiskLow <1.00 mg/LAverage 1.00-3.00 mg/LHigh >3.00-10.00 mg/LIndeterminant* >10.00 mg/L*May be indication of another source of inflammation or infection. Performed By: #### L [id number] ####Maint Mechanic: AMAN SANTOS ([phone])[facility] (SBHLAB)[address] [place] [address] LIPASEon 02-14-2024 Lipase [Catalytic activity/Vol] 61 U/L Normal 23-300 [facility] Comment on above: Performed By: #### L AB99, LAB17 ####Maint Mechanic: VIVIAN PANTOJA ([phone])[facility] (SWRLAB)[address] [place] [address] Laboratory - Chemistry and C hemistry - challengeon 02-14-2024 Lipase [Catalytic activity/Vol] 61 U/L 23 - 300 U/L [facility] Laboratory - Hematology and Cell countson 02-14-2024 ESR (Bld) [Velocity] 1 mm/h [facility] Lipase [Catalytic activity/V ol]on 02-14-2024 Interpretation and review of laboratory results Normal [facility] No Panel Informationon 02-13 [facility] Progress Noteon 02-14-2024 Progress Note Normal [facility] SEDIMENTATION RATE, AUTOMATE Don 02-14-2024 SEDIMENTATION RATE, ERYTHROCYTE 1 mm/hr Normal 0-20 [facility] Comment on above: Performed By: #### L [id number], [id number] ####Maint Mechanic: VIIVAN PANTOJA ([phone])[facility] ([facility])[address] [place] [address] XR Chest 2 Viewson 4 Radiology Study observation (narrative) [facility] Nonabox 36on 02-11-2024 36 Normal [facility] CBC W Auto Differential pane l (Bld)on 02-11-2024 Erythrocyte distribution width (RBC) [Ratio] 16.3 % High 11.5 - 15.0 % [facility] Hematocrit (Bld) [Volume fraction] 36.4 % 35.0 - 47.0 % [facility] Hemoglobin (Bld) [Mass/Vol] 11.4 g/dL Low 11.7 - 16.0 g/dL [facility] IPF 14 [facility] MCH (RBC) [Entitic mass] 28.2 pg 26.0 - 34.0 pg [facility] MCHC (RBC) [Mass/Vol] 31.3 % 30.5 - 36.0 % [facility] MCV (RBC) [Entitic vol] 90.1 fL 77.0 - 99.0 fL [facility] Nucleated RBC/100 WBC (Bld) [Ratio] 0 % [facility] Platelet mean volume (Bld) [Entitic vol] 12.9 fL High 9.0 - 12.7 fL [facility] Platelets (Bld) [#/Vol] 92 10*3/uL Low 140 - 440 10*3/uL [facility] RBC (Bld) [#/Vol] 4.04 10*6/uL 3.80 - 5.2 0 10*6/uL [facility] WBC (Bld) [#/Vol] 18.5 10*3/uL High 3.6 - 10.7 10*3/uL [facility] CBC WITH AUTO DIFFERENTIALon 02-11-2024 Erythrocyte distribution width (RBC) [Ratio] 16.3 % High 11.5-15.0 [facility] Comment on above: Performed By: #### L [id number], [id number] ####Maint Mechanic: VIVIAN PANTOJA ([phone])[facility] (RLAB)[address] [place] [address] Hematocrit (Bld) [Volume fraction] 36.4 % Normal 35.0-47.0 [facility] Comment on above: Performed By: #### L [id number], [id number] ####Maint Mechanic: VIVIAN PANTOJA ([phone])[facility]ENTERBessy FOX R[facility]TMAN (SWRLAB)[address] [place] [address] Hemoglobin (Bld) [Mass/Vol] 11.4 g/dL Low 11.7-16.0 [facility] Comment on above: Performed By: #### L [id number], [id number] ####Maint Mechanic: VIVIAN PANTOJA ([phone])[facility]ENTERBessy FOX [facility] (SWRLAB)[address] [place] [address] IPF 14 Normal [facility] Comment on above: Performed By: #### Manpreet [id number], [id number] ####Maint Mechanic: VIVIAN PANTOJA ([phone])[facility]ENTERBessy [facility] (SWRLAB)[address] [place] [address] MCH (RBC) [Entitic mass] 28.2 pg Normal 26.0-34.0 [facility] Comment on above: Performed By: #### L [id number], [id number] ####Maint Mechanic: VIVIAN PANTOJA ([phone])[facility]ENTERB[facility] (SWRLAB)[address] [place] [address] MCHC 31.3 % Normal 30.5-36.0 [facility] Comment on above: Performed By: #### L [id number], [id number] ####Maint Mechanic: VIVIAN PANTOJA ([phone])[facility]ENTERB[facility] (SWRLAB)[address] [place] [address] MCV (RBC) [Entitic vol] 90.1 fL Normal 77.0-99.0 [facility] Comment on above: Performed By: #### L [id number], [id number] ####Maint Mechanic: VIVIAN PANTOJA ([phone])[facility] (SWRLAB)[address] [place] [address] [place] NRBC 0.0 /100 WBCs Normal 0.0-2.0 [facility] Comment on above: Performed By: #### Manpreet [id number], [id number] ####Maint Mechanic: VIVIAN PANTOJA ([phone])[facility]ENTERBessy [facility] (SWRLAB)[address] Platelet mean volume (Bld) [Entitic vol] 12.9 fL High 9.0-12.7 [facility] Comment on above: Performed By: #### Manpreet SAINI, [id number] ####Maint Mechanic: VIVIAN PANTOJA ([phone])[facility]ENTERBessy [facility] (SWRLAB)[address] Platelets (Bld) [#/Vol] 92 10*3/uL Low 140-440 [facility] Comment on above: Performed By: #### Manpreet [id number], [id number] ####Maint Mechanic: VIVIAN PANTOJA ([phone])[facility]ENTERB[facility] (SWRLAB)[address] [place] [address] RBC (Bld) [#/Vol] 4.04 10*6/uL Normal 3.80-5.20 [facility] Comment on above: Performed By: #### Manpreet [id number], [id number] ####Maint Mechanic: VIVIAN PANTOJA ([phone])[facility]ENTERBess[facility] (SWRLAB)[address] [place] [address] [place] WBC (Bld) [#/Vol] 18.5 10*3/uL High 3.6-10.7 [facility] Comment on above: Performed By: #### L [id number], [id number] ####Maint Mechanic: VIVIAN PANTOJA ([phone])[facility]ENTERBess[facility] (SWRLAB)[address] COMPLETE URINALYSISon 2023 BACTERIA (#/HPF) IN URINE Few Abnormal Negative [facility] Comment on above: Performed By: #### L [id number] ####Maint Mechanic: VIVIAN PANTOJA ([phone])[facility]ENTERA RUDDY RITTMAN (SWRLAB)[address] [place] [address] BILIRUBIN, TOTAL PRESENCE IN URINE Negative Normal Negative [facility] Comment on above: Performed By: #### L [id number] ####Maint Mechanic: VIVIAN PANTOJA ([phone])[facility]ENTERA RUDDY R[facility]TMAN (SWRLAB)[address] [place] [address] Clarity (U) Clear Normal Clear [facility] Comment on above: Performed By: #### L [id number] ####Maint Mechanic: VIVIAN PANTOJA ([phone])[facility]ENTERA RUDDY RITTMAN (SWRLAB)[address] [place] [address] Color (U) Yellow Normal Lt. Yellow [facility] Comment on above: Performed By: #### L [id number] ####Maint Mechanic: VIVIAN PANTOJA ([phone])[facility]ENTERA RUDDY RITTMAN (SWRLAB)[address] [place] [address] [place] GLUCOSE (MG/DL) IN URINE Normal Normal Normal (<70) [facility] Comment on above: Performed By: #### L [id number] ####Maint Mechanic: VIVIAN PANTOJA ([phone])[facility]ENTERA RUDDY RITTMAN (SWRLAB)[address] [place] [address] [place] HEMOGLOBIN PRESENCE IN URINE 0.03 mg/dL Abnormal Negative [facility] Comment on above: Performed By: #### L [id number] ####Maint Mechanic: VIVIAN PANTOJA ([phone])[facility]ENTERA RUDDY RITTMAN (SWRLAB)[address] [place] [address] [place] HYALINE CASTS (#/LPF) IN URINE SEDIMENT BY MICROSCOPY 0-2 Abnormal Negative [facility] Comment on above: Performed By: #### L [id number] ####Maint Mechanic: VIVINA PANTOJA ([phone])[facility]ENTERBessy [facility] (SWRLAB)[address] Ketones Ql (U) Negative Normal Negative [facility] Comment on above: Performed By: #### L [id number] ####Maint Mechanic: VIVIAN PANTOJA ([phone])[facility]ENTERBess[facility] (SWRLAB)[address] LEUKOCYTE ESTERASE PRESENCE IN URINE BY TEST STRIP Negative Normal Negative [facility] Comment on above: Performed By: #### L [id number] ####Maint Mechanic: VIVIAN PANTOJA ([phone])[facility]ENTERBessy MARTINEZRUDDY RITTMAN (SWRLAB)[address] [place] [address] NITRITE PRESENCE IN URINE Negative Normal Negative [facility] Comment on above: Performed By: #### L [id number] ####Maint Mechanic: VIVIAN PANTOJA ([phone])[facility]ENTERA RUDDY RITTMAN (SWRLAB)[address] [place] [address] pH (U) 6.0 [pH] Normal 5.0-8.0 [facility] Comment on above: Performed By: #### L [id number] ####Maint Mechanic: VIVIAN PANTOJA ([phone])[facility]ENTERBessy MARTINEZRUDDY RITTMAN (SWRLAB)[address] [place] [address] Protein (U) [Mass/Vol] 300 mg/dL Abnormal Negative [facility] Comment on above: Performed By: #### L [id number] ####Maint Mechanic: VIVIAN PANTOJA ([phone])[facility]ENTERA RUDDY RITTMAN (SWRLAB)[address] [place] [address] [place] RBC (#/HPF) IN URINE SEDIMENT 0-2 Normal 0-2 [facility] Comment on above: Performed By: #### L [id number] ####Maint Mechanic: VIVIAN PANTOJA ([phone])[facility]ENTERBessy MARTINEZRUDDY RITTMAN (SWRLAB)[address] [place] [address] Specific gravity (U) [Rel density] 1.032 High 1.005-1.030 [facility] Comment on above: Performed By: #### L [id number] ####Maint Mechanic: VIVIAN PANTOJA ([phone])[facility]ENTERB[facility] (SWRLAB)[address] [place] [address] Specimen volume (U) 12 mL Normal [facility] Comment on above: Performed By: #### L [id number] ####Maint Mechanic: VIVIAN PANTOJA ([phone])[facility]ENTERB[facility] (SWRLAB)[address] [place] [address] SQUAMOUS EPITHELIAL CELLS (#/HPF) IN URINE SEDIMENT 3-5 Normal 3-5 [facility] Comment on above: Performed By: #### L [id number] ####Maint Mechanic: VIVIAN PANTOJA ([phone])[facility]ENTERB[facility] (SWRLAB)[address] [place] [address] UROBILINOGEN (MG/DL) IN URINE 4 mg/dL Abnormal Normal (0-1) [facility] Comment on above: Performed By: #### L [id number] ####Maint Mechanic: VIVIAN PANTOJA ([phone])[facility] (SWRLAB)[address] [place] [address] WBC (LEUKOCYTE) (#/HPF) IN URINE SEDIMENT 3-5 Normal 0-5 [facility] Comment on above: Performed By: #### L [id number] ####Maint Mechanic: VIVIAN PANTOJA ([phone])[facility]ENTERB[facility] (SWRLAB)[address] [place] [address] COMPREHENSIVE METABOLIC PANE Amaury 02-11-2024 Albumin [Mass/Vol] 4.2 g/dL Normal 3.5-5.0 [facility] Comment on above: Performed By: #### L [id number] ####Maint Mechanic: VIVIAN PANTOJA ([phone])[facility]ENTERBess[facility] (SWRLAB)[address] [place] [address] [place] ALP [Catalytic activity/Vol] 84 U/L Normal 38-126 [facility] Comment on above: Performed By: #### L [id number] ####Maint Mechanic: VIVIAN PANTOJA ([phone])[facility]ENTERB[facility] (SWRLAB)[address] [place] [address] [place] ALT [Catalytic activity/Vol] 20 U/L Normal 0-34 [facility] Comment on above: Performed By: #### L AB17 ####Maint Mechanic: VIVIAN PATNOJA ([phone])[facility]ENTERB[facility] (SWRLAB)[address] Anion gap [Moles/Vol] 7 mmol/L Normal 3-13 [facility] Comment on above: Performed By: #### L AB17 ####Maint Mechanic: VIVIAN APNTOJA ([phone])[facility]ENTERB[facility] (SWRLAB)[address] [place] [address] [place] AST [Catalytic activity/Vol] 19 U/L Normal 15-46 [facility] Comment on above: Performed By: #### L AB17 ####Maint Mechanic: VIVIAN PANTOJA ([phone])[facility]ENTERB[facility] (SWRLAB)[address] [place] [address] [place] Bilirubin [Mass/Vol] 1.9 mg/dL High 0.2-1.3 [facility] Comment on above: Performed By: #### L AB17 ####Maint Mechanic: VIVIAN PANTOJA ([phone])[facility]ENTERB[facility] (SWRLAB)[address] [place] [address] [place] Calcium [Mass/Vol] 9.8 mg/dL Normal 8.4-10.4 [facility] Comment on above: Performed By: #### L AB17 ####Maint Mechanic: VIVIAN PANTOJA ([phone])[facility] (SWRLAB)[address] [place] [address] [place] Chloride [Moles/Vol] 101 mmol/L Normal 98-107 [facility] Comment on above: Performed By: #### L AB17 ####Maint Mechanic: VIVIAN PANTOJA ([phone])[facility] (SWRLAB)[address] CO2 [Moles/Vol] 30 mmol/L Normal 22-30 [facility] Comment on above: Performed By: #### L AB17 ####Maint Mechanic: VIVIAN PANTOJA ([phone])[facility] (SWRLAB)[address] [place] [address] Creatinine [Mass/Vol] 0.76 mg/dL Normal 0.52-1.04 [facility] Comment on above: Performed By: #### L AB17 ####Maint Mechanic: VIVIAN PANTOJA ([phone])[facility]ENTERB[facility] (SWRLAB)[address] [place] [address] [place] GLOMERULAR FILTRATION RATE ML/MIN/1.73 SQ M.PREDICTED 83.4 mL/min/1.73m*2 Normal >60.0 [facility] Comment on above: Result Comment: Calc ulation based on the Chronic Kidney Disease Epidemiology Collaboration (CKD-EPI) equation refit without adjustment for race Performed By: #### L [id number] ####Maint Mechanic: VIVIAN PANTOJA ([id number])[facility]ENTERBess[facility] (SWRL[facility])[address] [place] [address] [place] Glucose [Mass/Vol] 116 mg/dL High 70-100 [facility] Comment on above: Performed By: #### L [id number] ####Maint Mechanic: VIVIAN PANTOJA ([id number])[facility]ENTERBessy [facility] (SWRLAB)[address] [place] [address] [place] Potassium [Moles/Vol] 4.5 mmol/L Normal 3.5-5.1 [facility] Comment on above: Performed By: #### L [id number] ####Maint Mechanic: VIVIAN PANTOJA ([id number])[facility] CENTERBessy MARTINEZRUDDY RITTMAN (SWRLAB)[address] Protein [Mass/Vol] 6.5 g/dL Normal 6.3-8.2 [facility] Comment on above: Performed By: #### L [id number] ####Maint Mechanic: VIVIAN PANTOJA ([id number])[facility]ENTERA RUDDY [facility] (SWRLAB)[address] Sodium [Moles/Vol] 139 mmol/L Normal 135-145 [facility] Comment on above: Performed By: #### L [id number] ####Maint Mechanic: VIVIAN PANTOJA ([id number])[facility]ENTERA RUDDY [facility] (SWRLAB)[address] [place] [address] Urea nitrogen [Mass/Vol] 20 mg/dL High 7-17 [facility] Comment on above: Performed By: #### L [id number] ####Maint Mechanic: VIVIAN PANTOJA ([id number])[facility]ENTERBess[facility] (SWRL[facility])[address] [place] [address] CT ABDOMEN PELVIS WO IV CONT RASTon 02-11-2024 CT ABDOMEN PELVIS WO IV CONTRAST Normal [facility] CT Abdomen and Pelvis WO con [...] MD Electronically Signed Date/Time: 02/11/2024 9:39 PM [facility] DEPARTMENT RADIOLOGY SYSTEM Patient Name: ALTA MOYA : [...] Lower endplate L1 mild compression, probably chronic. [facility] RADIOLOGY SYSTEM Greyson Banks MD - 02/11/2024 [facility] Name[facility] 1950 [id number] Exam Date/Time: 02/11/2024 21:26 Procedure: CT ABDOMEN [...] Electronically Signed Date/Time: 02/11/2024 9:39 PM EST [facility] Radiology Study observation (narrative) [facility] CT Abdomen and Pelvis WO con trastOrdered By: Greyson Banks on 02-11-2024 [facility] Work Phone: Comprehensive metabolic 1998 panelon 02-11-2024 Albumin [Mass/Vol] 4.2 g/dL 3.5 - 5.0 g/dL [facility] ALP [Catalytic activity/Vol] 84 U/L 38 - 126 U/L [facility] ALT [Catalytic activity/Vol] 20 U/L 0 - 34 U/L [facility] Anion gap [Moles/Vol] 7 mmol/L 3 - 13 mmol/L [facility] AST [Catalytic activity/Vol] 19 U/L 15 - 46 U/L [facility] Bilirubin [Mass/Vol] 1.9 mg/dL High 0.2 - 1 .3 mg/dL [facility] Calcium [Mass/Vol] 9.8 mg/dL 8.4 - 10. 4 mg/dL [facility] Chloride [Moles/Vol] 101 mmol/L 98 - 10 7 mmol/L [facility] CO2 [Moles/Vol] 30 mmol/L 22 - 30 mmol/L [facility] Creatinine [Mass/Vol] 0.76 mg/dL 0.52 - 1.04 mg/dL [facility] GFR/1.73 sq M.predicted (S/P/Bld) [Vol rate/Area] 83.4 mL/min - PINF [facility] Comment on above: Calculation based on the Chronic Kidney Disease Epidemiology Collaboration (CKD-EPI) equation refit without adjustment for race Glucose [Mass/Vol] 116 mg/dL High 70 - 100 mg/dL [facility] Interpretation and review of laboratory results Abnormal [facility] Potassium [Moles/Vol] 4.5 mmol/L 3.5 - 5.1 mmol/L [facility] Protein [Mass/Vol] 6.5 g/dL 6.3 - 8.2 g/dL [facility] Sodium [Moles/Vol] 139 mmol/L 135 - 145 mmol/L [facility] Urea nitrogen [Mass/Vol] 20 mg/dL High 7 - 17 mg/dL [facility] ED Nursing Noteon 02-11-2024 ED Nursing Note Normal [facility] ED Provider Noteon ED Provider Note Normal [facility] MANUAL DIFFERENTIALon 2023 BAND NEUTROPHILS TOTAL PER COUNTED LEUKOCYTES BY MANUAL COUNT 1 Normal [facility] Comment on above: Performed By: #### Manpreet SAINI, [id number] ####Maint Mechanic: VIVIAN PANTOJA ([phone])[facility] CENTERBessy [place] R[place]TMAN (SWRLAB)[address] [place] [address] [place] BANDS 0.2 10*3/uL High <=0.0 [facility] Comment on above: Performed By: #### Manpreet SAINI, [id number] ####Maint Mechanic: VIVIAN PANTOJA ([phone])[facility]ENTERA [place] (SWRLAB)[address] [place] [address] [place] BASOPHILS (10*3/UL) IN BLOOD BY MANUAL COUNT 0.0 10*3/uL Normal 0.0-0.2 [facility] Comment on above: Performed By: #### Manpreet [id number], [id number] ####Maint Mechanic: VIVIAN PANTOJA ([phone])[facility]ENTERA [place] (SWRLAB)[address] [place], [place] [address] [place] BASOPHILS TOTAL PER COUNTED LEUKOCYTES BY MANUAL COUNT 0 Normal [facility] Comment on above: Performed By: #### L [id number], [id number] ####Maint Mechanic: VIVIAN PANTOJA ([phone])[facility] [place] (SWRLAB)[address] [place] [address] [place] BASOPHILS/100 LEUKOCYTES IN BLOOD BY MANUAL COUNT 0 % Normal 0-2 [facility] Comment on above: Performed By: #### L [id number], [id number] ####Maint Mechanic: VIVIAN PANTOJA ([phone])[facility] [place] (SWRLAB)[address] [place] [address] [place] CELLS COUNTED TOTAL (#) IN BLOOD 100 Normal [facility] Comment on above: Performed By: #### L [id number], [id number] ####Maint Mechanic: VIVIAN PANTOJA ([phone])[facility] [place] (SWRLAB)[address] [place] [address] [place] DIFFERENTIAL METHOD Manual differential performed Normal [facility] Comment on above: Performed By: #### L [id number], [id number] ####Maint Mechanic: VIVIAN PANTOJA ([phone])[facility] [place] (SWRLAB)[address] [place] [address] [place] EOSINOPHILS (10*3/UL) IN BLOOD BY MANUAL COUNT 0.0 10*3/uL Normal 0.0-0.5 [facility] Comment on above: Performed By: #### L [id number], [id number] ####Maint Mechanic: VIVIAN PANTOJA ([phone])[facility] [place] (SWRL[place])[address] [place] [address] [place] EOSINOPHILS TOTAL PER COUNTED LEUKOCYTES BY MANUAL COUNT 0 Normal 0-1 [facility] Comment on above: Performed By: #### L [id number], [id number] ####Maint Mechanic: VIVIAN PANTOJA ([phone])[facility] [place] (SWRLAB)[address] [place] [address] [place] EOSINOPHILS/100 LEUKOCYTES IN BLOOD BY MANUAL COUNT 0 % Normal 0-6 [facility] Comment on above: Performed By: #### L [id number], [id number] ####Maint Mechanic: VIVIAN PANTOJA ([phone])[facility] [place] (SWRLAB)[address] [place] [address] [place] LEUKOCYTE MORPHOLOGY FINDING IN BLOOD Normal Normal [facility] Comment on above: Performed By: #### L [id number], [id number] ####Maint Mechanic: VIVIAN PANTOJA ([phone])[facility]ENTERA [place] (SWRLAB)[address] [place] [address] [place] LEUKOCYTES (10*3/UL) NUCLEATED ERYTHROCYTE ADJUST 18.5 10*3/uL High 3.6-10.7 [facility] Comment on above: Performed By: #### L [id number], [id number] ####Maint Mechanic: VIVIAN PANTOJA ([phone])[facility]ENTERA [place] (SWRLAB)[address] [place] [address] [place] LYMPHOCYTES (10*3/UL) IN BLOOD BY MANUAL COUNT 0.9 10*3/uL Low 1.0-4.3 [facility] Comment on above: Performed By: #### L [id number], [id number] ####Maint Mechanic: VIVIAN PANTOJA ([phone])[facility]ENTERA [place] (SWRLAB)[address] [place] [address] [place] LYMPHOCYTES TOTAL PER COUNTED LEUKOCYTES BY MANUAL COUNT 5 Normal [facility] Comment on above: Performed By: #### L [id number], [id number] ####Maint Mechanic: VIVIAN PANTOJA ([phone])[facility]ENTERA RUDDY [place] (SWRLAB)[address] [place] [address] [place] LYMPHOCYTES/100 LEUKOCYTES IN BLOOD BY MANUAL COUNT 5 % Low 15-45 [facility] Comment on above: Performed By: #### L [id number], [id number] ####Maint Mechanic: VIVIAN PANTOJA ([phone])[facility]ENTERA [place] (SWRLAB)[address] [place] [address] [place] MONOCYTES (10*3/UL) IN BLOOD BY MANUAL COUNT 6.5 10*3/uL High 0.0-0.9 [facility] Comment on above: Performed By: #### L [id number], [id number] ####Maint Mechanic: VIVIAN PANTOJA ([phone])[facility] CENTERBessy [place] (SWRLAB)[address] [place] [address] [place] MONOCYTES TOTAL PER COUNTED LEUKOCYTES BY MANUAL COUNT 35 Normal [facility] Comment on above: Performed By: #### L [id number], [id number] ####Maint Mechanic: VIVIAN PANTOJA ([phone])[facility]ENTERA [place] (SWRLAB)[address] [place] [address] [place] MONOCYTES/100 LEUKOCYTES IN BLOOD BY MANUAL COUNT 35 % High 5-13 [facility] Comment on above: Performed By: #### L [id number], [id number] ####Maint Mechanic: VIVIAN PANTOJA ([phone])[facility] CENTERBessy MARTINEZRUDDY RITTMAN (SWRLAB)[address] [place] [address] [place] NEUTROPHILS (SEGS+BANDS) (10*3/UL) BY MANUAL COUNT 11.1 10*3/uL High 1.8-7.0 [facility] Comment on above: Performed By: #### L [id number], [id number] ####Maint Mechanic: VIVIAN PANTOJA ([phone])[facility]ENTERA [place] (SWRLAB)[address] [place] [address] [place] NEUTROPHILS BAND FORM/100 LEUKOCYTES IN BLOOD BY MANUAL COUNT 1 % High <=0 [facility] Comment on above: Performed By: #### L [id number], [id number] ####Maint Mechanic: VIVIAN PANTOJA ([phone])[facility] CENTERBessy MARTINEZRUDDY RITTMAN (SWRLAB)[address] [place] [address] [place] NEUTROPHILS TOTAL PER COUNTED LEUKOCYTES BY MANUAL COUNT 59 Normal [facility] Comment on above: Performed By: #### L [id number], [id number] ####Maint Mechanic: VIVIAN PANTOJA ([phone])[facility]ENTERA [place]DY [place] (SWRLAB)[address] [place] [address] PLATELET MORPHOLOGY IN BLOOD Normal Normal [facility] Comment on above: Performed By: #### L [id number], [id number] ####Maint Mechanic: VIVIAN PANTOJA ([phone])[facility]ENTERA [place] (SWRLAB)[address] [place] [address] RBC MORPHOLOGY IN BLOOD Normal Normal [facility] Comment on above: Performed By: #### L [id number], [id number] ####Maint Mechanic: VIVIAN PANTOJA ([phone])[facility] CENTERBessy MARTINEZRUDDY RITTMAN (SWRLAB)[address] [place] [address] SEGEMENTED NEUTROPHILS/100 LEUKOCYTES BY MANUAL COUNT 59 % Normal 38-82 [facility] Comment on above: Performed By: #### L [id number], [id number] ####Maint Mechanic: VIVIAN PANTOJA ([phone])[facility] CENTERBessy [place] (SWRLAB)[address] [place] [address] SEGMENTED NEUTROPHILS (10*3/UL)IN BLOOD BY MANUAL COUNT 11.1 10*3/uL High 1.8-7.5 [facility] Comment on above: Performed By: #### L [id number], [id number] ####Maint Mechanic: VIVIAN PANTOJA ([phone])[facility]ENTERA RUDDY RIT[place]AN (SWRLAB)[address] [place] [address] Manual differential performe d Ql (Bld)on 02-11-2024 Band form neutrophils (Bld) [#/Vol] 0.2 10*3/uL High NINF - 0.0 10*3/uL [facility] Band form neutrophils/100 WBC (Bld) 1 % High NINF - 0 % [facility] Bands Manual 1 [facility] Basophils (Bld) [#/Vol] 0 10*3/uL 0.0 - 0.2 10*3/uL [facility] Basophils Manual 0 [facility] Basophils/100 WBC (Bld) 0 % 0 - 2 % [facility] Cells Counted Total (Bld) [#] 100 {cells} [facility] Differential Method Manual differential performed [facility] Eosinophils (Bld) [#/Vol] 0 10*3/uL 0.0 - 0.5 10*3/uL [facility] Eosinophils Manual 0 0 - 1 [facility] Eosinophils/100 WBC (Bld) 0 % 0 - 6 % [facility] Leukocyte morphology finding Nom (Bld) Normal [facility] Lymphocytes (Bld) [#/Vol] 0.9 10*3/uL Low 1.0 - 4.3 10*3/uL [facility] Lymphocytes Manual 5 [facility] Lymphocytes/100 WBC (Bld) 5 % Low 15 - 45 % [facility] Monocytes (Bld) [#/Vol] 6.5 10*3/uL High 0.0 - 0.9 10*3/uL [facility] Monocytes Manual 35 [facility] Monocytes/100 WBC (Bld) 35 % High 5 - 13 % [facility] Neutrophils (Bld) [#/Vol] 11.1 10*3/uL High 1.8 - 7.5 10*3/uL [facility] Neutrophils Manual 59 [facility] Platelet morphology finding Nom (Bld) Normal [facility] RBC morphology finding Nom (Bld) Normal [facility] Segmented neutrophils/100 WBC (Bld) 59 % 38 - 82 % [facility] WBC corrected for nucl RBC (Bld) [#/Vol] 18.5 10*3/uL High 3.6 - 10.7 10*3/uL [facility] No Panel Informationon 02-10 Interpretation and review of laboratory results Abnormal [facility] Urinalysis complete panel (U )Ordered By: Sindy Mcpherson on 02-11-2024 Bacteria LM.HPF (Urine sed) [#/Area] Few Abnormal Negative /HPF [facility] Bilirubin Ql (U) Negative Negative mg/dL [facility] Clarity (U) Clear Clear [facility] Color (U) Yellow Lt. Yellow [facility] Epithelial cells.squamous LM.HPF (Urine sed) [#/Area] 3-5 [facility] Glucose Ql (U) Normal Normal (<70) mg/dL [facility] Hemoglobin Ql (U) 0.03 mg/dL Abnormal Negative [facility] Hyaline casts Auto (Urine sed) [#/Area] 0-2 Abnormal Negative /LPF [facility] Interpretation and review of laboratory results Abnormal [facility] Ketones (U) [Mass/Vol] Negative Negat ute mg/dL [facility] Leukocyte esterase Test strip Ql (U) Negative Negative Ghada/uL [facility] Nitrite Ql (U) Negative Negative [facility] pH (U) 6.0 [pH] 5.0 - 8.0 pH [facility] Protein (U) [Mass/Vol] 300 mg/dL Abnormal Negative [facility] RBC LM.HPF (Urine sed) [#/Area] 0-2 [facility] Specific gravity (U) [Rel density] 1.032 High 1.005 - 1.030 [facility] Urobilinogen (U) [Mass/Vol] 4 mg/dL Abnormal Normal (0-1) [facility] Volume, Urine 12 mL [facility] WBC LM.HPF (Urine sed) [#/Area] 3-5 [facility] 36on 02-09-2024 36 Pt aware. Normal [facility] 36 Normal [facility] 36on 02-08-2024 36 Normal [facility] 36 Attempted to return call. No answer. Curt Last PA-C has openings next week. Normal [facility] 36on 02-07-2024 36 Normal [facility] Progress Noteon 02-07-2024 Progress Note Normal [facility] CNOVon 02-04-2024 CNOV Office Visit (UCWSTR ) ----- ALTA BAKER ([id number]) 1950 F Date Time Provider Department 02/04/24 7:15 PM PAO ELIAS RUST During your visit today, we recorded the following information about you: Temperature Pulse Respiration Blood pressure 97.7 degrees 88/minute 24/minute 178/86 Weight 116.6 kg Pao Elias APRN.FINAL ASSEMBLY INSPECTOR 02/04/2024 7:40 PM Signed Pain Subjective Came in with complaints of lower right back pain. Patient says it does radiate down the leg a little bit at times but not all the time. Patient denies any injuries thinks she turned wrong a couple weeks ago. Patient says is not getting any better and she has tried cjxz-tkd-thsubis medication ice and heat. Patient says it is very uncomfortable and she is not able to sleep. The history is provided by the patient. No educational sign language interpreter was used. Review of Systems Constitutional: Negative. Skin: Negative. Objective Physical Exam Constitutional: Appearance: Normal appearance. Pulmonary: Effort: Pulmonary effort is normal. Skin: Comments: Patient says the pain is in the area marked above. Neurological: Mental Status: She is alert. No past medical history on file. No past surgical history on file. ALLERGIES Oxycodone, Jxndqnx-Bzt-Slu Reductase Inhibitors, and Tetanus And Diphtheria Toxoids [...] evaluation. Daughter will take her. Pao Elias APRN.FINAL ASSEMBLY INSPECTOR Allergies As of Date: 02/04/2024 Noted Allergy Reaction OXYCODONE 07/27/2017 1 - Mental Status Change Comments: Did not like the feeling HTNPFGF-FEE-RFS REDUCTASE INHIBIT*07/07/2016 17 - Myalgia TETANUS AND [...] mg tabl (more content not included)... Normal [facility] ED Nursing Noteon 02-04-2024 ED Nursing Note Normal [facility] ED Provider Noteon ED Provider Note Normal [facility] XR Lumbar spine 2 or 3 [...] Electronically Signed Date/Time: 02/04/2024 9:41 PM EST [facility] [employer] Patient Name: ALTA MOYA : 1950 Exam Date/Time: 02/04/2024 21:25 Procedure: XR LUMBAR SPINE 2-3 VIEWS Ordering Provider: MALDONADO EMILIE Reason For Exam: SI joint pain, eval for fracture INDICATION: 73-year-old female; SI joint pain; evaluate for fracture. VIEWS: Lumbar spine AP and lateral and lumbosacral lateral-3 images COMPARISON: None. [facility] Selma Azevedo MD - 02/04/2024 Patient [...] Electronically Signed Date/Time: 02/04/2024 9:41 PM EST [facility] Radiology Study observation (narrative) [facility] XR Lumbar spine 2 or 3 Views Ordered By: Selma Azevedo on 02-04-2024 [facility] Work Phone: XR Sacrum and Coccyx 2 Views on 02-04-2024 Patient Name: ALTA MOYA : 1950 Exam Date/Time: 02/04/2024 21:26 Procedure: XR SACRUM COCCYX 2+ VIEWS Ordering Provider: MALDONADO EMILIE Reason For Exam: SI joint pain, eval for fracture INDICATION: SI joint pain. VIEWS: AP sacrum, AP coccyx, lateral sacrum-3 images COMPARISON: None. [facility] RADIOLOGY SYSTEM Selma Azevedo MD - 02/04/2024 [...] Electronically Signed Date/Time: 02/04/2024 9:43 PM EST [facility] Radiology Study observation (narrative) [facility] 36on 01-31-2024 36 Noted Normal [facility] 36 Normal [facility] Progress Noteon 01-25-2024 Progress Note Some degree of white coat HTN, BP at home generally 130's. Controlled. -- metoprolol, lisinopril, lasix Normal [facility] Progress Note Normal [facility] Progress Note Normal [facility] Progress Note Moderate pulmonary regurgitation likely multifactorial secondary to obesity and CHRISTIANNE -Recommend compliance with CPAP -Continue Lasix Normal [facility] Progress Note Remains on digoxin. Dig level acceptable 03/2023. - continue digoxin - dig level usually drawn by PCP Normal [facility] Progress Note Normal [facility] Progress Note Permanent, nonvalvul ar. [id number] equals 4. Remains rate controlled today. -Continue metoprolol 100 mg p.o. twice daily -Continue digoxin 125 mcg po daily -Continue Eliquis 5 mg p.o. twice daily Normal [facility] XR Chest 2 Viewson Impression: Ivcg-eo-xlxtinkj cardiomegaly. No acute pulmonary process. Report Dictated on Electronically Signed By: Esvin Bradley MD Electronically Signed Date/Time: 12/16/2023 10:[facility] : 1950 [id number] Exam Date/Time: 12/16/2023 09:58 Procedure: XR CHEST [...] and spine with mild upper thoracic kyphosis.. [facility] RADIOLOGY SYSTEM Esvin Bradley MD - 12/16/2023 [...] with mild upper thoracic kyphosis.. IMPRESSION: Impression: Nwbc-ty-halfgupg cardiomegaly. No acute pulmonary process. Report Dictated on Electronically Signed By: Esvin Bradley MD Electronically Signed Date/Time: 12/16/2023 10:32 AM EDT [facility] Radiology Study observation (narrative) [facility] XR Chest 2 ViewsOrdered By: Esvin Bradley on 12-16-2023 [facility] [facility] Work Phone: CBC W Auto Differential pane l (Bld)Ordered By: Isaura Lebron on 12-14-2023 Basophils (Bld) [#/Vol] 0.0 10*3/uL 0.0 - 0.2 10*3/uL [facility] Basophils/100 WBC (Bld) 0.1 % 0.0 - 2.0 % [facility] Eosinophils (Bld) [#/Vol] 0.0 10*3/uL 0.0 - 0.5 10*3/uL [facility] Eosinophils/100 WBC (Bld) 0.2 % 0.0 - 6.0 % [facility] Erythrocyte distribution width (RBC) [Ratio] 14.9 % 11.5 - 15.0 % [facility] Hematocrit (Bld) [Volume fraction] 41.4 % 35.0 - 47.0 % [facility] Hemoglobin (Bld) [Mass/Vol] 13.3 g/dL 11.7 - 16.0 g/dL [facility] Immature granulocytes (Bld) [#/Vol] 0.3 10*3/uL High NINF - 0.1 10*3/uL [facility] Immature granulocytes/100 WBC (Bld) 1.4 % 0.0 - 2.0 % [facility] Interpretation and review of laboratory results Abnormal [facility] IPF 21 [facility] Lymphocytes (Bld) [#/Vol] 2.7 10*3/uL 1.0 - 4.3 10*3/uL [facility] Lymphocytes/100 WBC (Bld) 13.3 % Low 15.0 - 45.0 % [facility] MCH (RBC) [Entitic mass] 28.0 pg 26.0 - 34.0 pg [facility] MCHC (RBC) [Mass/Vol] 32.1 % 30.5 - 36.0 % [facility] MCV (RBC) [Entitic vol] 87.2 fL 77.0 - 99.0 fL [facility] Monocytes (Bld) [#/Vol] 6.1 10*3/uL High 0.0 - 0.9 10*3/uL [facility] Monocytes/100 WBC (Bld) 30.2 % High 5.0 - 13.0 % [facility] Neutrophils (Bld) [#/Vol] 11.1 10*3/uL High 1.8 - 7.5 10*3/uL [facility] Neutrophils/100 WBC (Bld) 54.8 % 38.0 - 82.0 % [facility] Nucleated RBC/100 WBC (Bld) [Ratio] 0.0 % [facility] Platelet mean volume (Bld) [Entitic vol] [facility] Comment on above: Instrument unable to calculate MPV. Platelets (Bld) [#/Vol] 77 10*3/uL Low 140 - 440 10*3/uL [facility] RBC (Bld) [#/Vol] 4.75 10*6/uL 3.80 - 5.2 0 10*6/uL [facility] WBC (Bld) [#/Vol] 20.2 10*3/uL High 3.6 - 10.7 10*3/uL [facility] Urinalysis complete panel (U )on 12-14-2023 Bacteria LM.HPF (Urine sed) [#/Area] Negative Negative /HPF [facility] Bilirubin Ql (U) Negative Negative mg/dL [facility] Clarity (U) Clear Clear [facility] Color (U) Light Yellow Lt. Yellow [facility] Epithelial cells.squamous LM.HPF (Urine sed) [#/Area] 3-5 [facility] Glucose Ql (U) Normal Normal (<70) mg/dL [facility] Hemoglobin Ql (U) 0.2 mg/dL Abnormal Negative [facility] Interpretation and review of laboratory results Abnormal [facility] Ketones (U) [Mass/Vol] Negative Negat ute mg/dL [facility] Leukocyte esterase Test strip Ql (U) Negative Negative Ghada/uL [facility] Nitrite Ql (U) Negative Negative [facility] pH (U) 7.0 [pH] 5.0 - 8.0 pH [facility] Protein (U) [Mass/Vol] 10 mg/dL Abnormal Negative [facility] RBC LM.HPF (Urine sed) [#/Area] 6-10 Abnormal [facility] Specific gravity (U) [Rel density] 1.016 1.005 - 1.030 [facility] Urobilinogen (U) [Mass/Vol] 2 mg/dL Abnormal Normal (0-1) [facility] Volume, Urine 8-12 mL [facility] WBC LM.HPF (Urine sed) [#/Area] 3-5 [facility] Basic Metabolic Profile (BMP )on 12-06-2023 BUN Normal - [facility] Comment on above: Result Comment: Canc elled via OM: Order cancelled - Patient discharged Performed By: #### L 100.0100, [id number] #### [facility] [address] [place], [address] BUN/CRE Normal - [facility] Comment on above: Result Comment: Canc elled via OM: Order cancelled - Patient discharged Performed By: #### L 100.0100, [id number] #### [facility] [address] [place], [address] CA,Total Normal 8.5-10.1 [facility] Comment on above: Result Comment: Canc elled via OM: Order cancelled - Patient discharged Performed By: #### L 100.0100, [id number] #### [facility] [address] [place], [address] CL Normal 98-107 [facility] Comment on above: Result Comment: Canc elled via OM: Order cancelled - Patient discharged Performed By: #### L 100.0100, [id number] #### [facility] [address] [place], [address] CO2 Normal 21.0-32.0 [facility] Comment on above: Result Comment: Canc elled via OM: Order cancelled - Patient discharged Performed By: #### L 100.0100, [id number] #### [facility] [address] [place], [address] CREAT,SERUM Normal 0.55-1.02 [facility] Comment on above: Result Comment: Canc elled via OM: Order cancelled - Patient discharged Performed By: #### L 100.0100, [id number] #### [facility] [address] [place], [address] EST GFR Normal >60 [facility] Comment on above: Result Comment: Canc elled via OM: Order cancelled - Patient discharged Performed By: #### L 100.0100, [id number] #### [facility] [address] [place], [address] EST GFR - AA Normal >60 [facility] Comment on above: Result Comment: Canc elled via OM: Order cancelled - Patient discharged Performed By: #### L 100.0100, [id number] #### [facility] [address] [place], [address] GAP Normal 5-15 [facility] Comment on above: Result Comment: Canc elled via OM: Order cancelled - Patient discharged Performed By: #### L 100.0100, [id number] #### [facility] [address] [place], [address] GLU Normal 74-106 [facility] Comment on above: Result Comment: Canc elled via OM: Order cancelled - Patient discharged Performed By: #### L 100.0100, [id number] #### [facility] [address] [place], [address] Potassium Normal 3.5-5.1 [facility] Comment on above: Result Comment: Canc elled via OM: Order cancelled - Patient discharged Performed By: #### L 100.0100, [id number] #### [facility] [address] [place], [place], [address] Basic Metabolic Profile (BMP) Normal 136-145 [facility] Comment on above: Result Comment: Canc elled via OM: Order cancelled - Patient discharged Performed By: #### L 100.0100, L500.4050 #### [facility] [address] [place], [address] CBC W/Diff, Automatedon 09-2 Absolute Neut Normal 2.0-7.7 [facility] Comment on above: Result Comment: Canc elled via OM: Order cancelled - Patient discharged Performed By: #### L 100.0100, L500.4050 #### [facility] [address] [place], [address] HCT Normal 37-47 [facility] Comment on above: Result Comment: Canc elled via OM: Order cancelled - Patient discharged Performed By: #### L 100.0100, L500.4050 #### [facility] [address] [place], [address] HGB Normal 12.0-15.0 [facility] Comment on above: Result Comment: Canc elled via OM: Order cancelled - Patient discharged Performed By: #### L 100.0100, L500.4050 #### [facility] [address] [place], [address] MCH Normal 27.0-32.0 [facility] Comment on above: Result Comment: Canc elled via OM: Order cancelled - Patient discharged Performed By: #### L 100.0100, L500.4050 #### [facility] [address] [place], [address] MCHC Normal 32-36 [facility] Comment on above: Result Comment: Canc elled via OM: Order cancelled - Patient discharged Performed By: #### L 100.0100, L500.4050 #### [facility] [address] [place], [address] MCV Normal 81-99 [facility] Comment on above: Result Comment: Canc elled via OM: Order cancelled - Patient discharged Performed By: #### L 100.0100, L500.4050 #### [facility] [address] [place], [address] NEUT% Normal 47-70 [facility] Comment on above: Result Comment: Canc elled via OM: Order cancelled - Patient discharged Performed By: #### L 100.0100, L500.4050 #### [facility] [address] [place], [address] PLT Normal 150-450 [facility] Comment on above: Result Comment: Canc elled via OM: Order cancelled - Patient discharged Performed By: #### L 100.0100, L500.4050 #### [facility] [address] [place], [address] RBC Normal 4.2-5.4 [facility] Comment on above: Result Comment: Canc elled via OM: Order cancelled - Patient discharged Performed By: #### L 100.0100, L500.4050 #### [facility] [address] [place], [address] RDW CV Normal 11.6-14.6 [facility] Comment on above: Result Comment: Canc elled via OM: Order cancelled - Patient discharged Performed By: #### L 100.0100, L500.4050 #### [facility] [address] [place], [address] RDW SD Normal 35.1-43.9 [facility] Comment on above: Result Comment: Canc elled via OM: Order cancelled - Patient discharged Performed By: #### L 100.0100, L500.4050 #### [facility] [address] [place], [address] WBC Normal 4.4-11.0 [facility] Comment on above: Result Comment: Canc elled via OM: Order cancelled - Patient discharged Performed By: #### L 100.0100, L500.4050 #### [facility] [address] [place], [address] Culture, Blood (WB)on 2023 CUB Blood cultures x2 fr om two different sites No growth in 5 days. Normal [facility] Comment on above: Performed By: #### L 100.0100, L500.4050 #### [facility] [address] [place], [address] Basic Metabolic Profile (BMP )on 12-05-2023 BUN Normal 7-18 [facility] Comment on above: Result Comment: Canc elled via OM: Order cancelled - Patient discharged Performed By: #### M 300.4500, M300.4600 #### [facility] [address] [place], [address] BUN/CRE Normal 10-20 [facility] Comment on above: Result Comment: Canc elled via OM: Order cancelled - Patient discharged Performed By: #### M 300.4500, M300.4600 #### [facility] [address] [place], [address] CA,Total Normal 8.5-10.1 [facility] Comment on above: Result Comment: Canc elled via OM: Order cancelled - Patient discharged Performed By: #### M 300.4500, M300.4600 #### [facility] [address] [place], [address] CL Normal 98-107 [facility] Comment on above: Result Comment: Canc elled via OM: Order cancelled - Patient discharged Performed By: #### M 300.4500, M300.4600 #### [facility] [address] [place], [address] CO2 Normal 21.0-32.0 [facility] Comment on above: Result Comment: Canc elled via OM: Order cancelled - Patient discharged Performed By: #### M 300.4500, M300.4600 #### [facility] [address] [place], [address] CREAT,SERUM Normal 0.55-1.02 [facility] Comment on above: Result Comment: Canc elled via OM: Order cancelled - Patient discharged Performed By: #### M 300.4500, M300.4600 #### [facility] [address] [place], [address] EST GFR Normal >60 [facility] Comment on above: Result Comment: Canc elled via OM: Order cancelled - Patient discharged Performed By: #### M 300.4500, M300.4600 #### [facility] [address] [place], [address] EST GFR - AA Normal >60 [facility] Comment on above: Result Comment: Canc elled via OM: Order cancelled - Patient discharged Performed By: #### M 300.4500, M300.4600 #### [facility] [address] [place], [address] GAP Normal 5-15 [facility] Comment on above: Result Comment: Canc elled via OM: Order cancelled - Patient discharged Performed By: #### M 300.4500, M300.4600 #### [facility] [address] [place], [address] GLU Normal 74-106 [facility] Comment on above: Result Comment: Canc elled via OM: Order cancelled - Patient discharged Performed By: #### M 300.4500, M300.4600 #### [facility] [address] [place], [address] Potassium Normal 3.5-5.1 [facility] Comment on above: Result Comment: Canc elled via OM: Order cancelled - Patient discharged Performed By: #### M 300.4500, M300.4600 #### [facility] [address] [place], [address] Basic Metabolic Profile (BMP) Normal 136-145 [facility] Comment on above: Result Comment: Canc elled via OM: Order cancelled - Patient discharged Performed By: #### M 300.4500, M300.4600 #### [facility] [address] [place], [address] CBC W/Diff, Automatedon 09-2 -2023 Absolute Neut Normal 2.0-7.7 [facility] Comment on above: Result Comment: Canc elled via OM: Order cancelled - Patient discharged Performed By: #### M 300.4500, M300.4600 #### [facility] [address] [place], [address] HCT Normal 37-47 [facility] Comment on above: Result Comment: Canc elled via OM: Order cancelled - Patient discharged Performed By: #### M 300.4500, M300.4600 #### [facility] [address] [place], [address] HGB Normal 12.0-15.0 [facility] Comment on above: Result Comment: Canc elled via OM: Order cancelled - Patient discharged Performed By: #### M 300.4500, M300.4600 #### [facility] [address] [place], [address] MCH Normal 27.0-32.0 [facility] Comment on above: Result Comment: Canc elled via OM: Order cancelled - Patient discharged Performed By: #### M 300.4500, M300.4600 #### [facility] [address] [place], [address] MCHC Normal 32-36 [facility] Comment on above: Result Comment: Canc elled via OM: Order cancelled - Patient discharged Performed By: #### M 300.4500, M300.4600 #### [facility] [address] [place], [address] MCV Normal 81-99 [facility] Comment on above: Result Comment: Canc elled via OM: Order cancelled - Patient discharged Performed By: #### M 300.4500, M300.4600 #### [facility] [address] [place], [address] NEUT% Normal 47-70 [facility] Comment on above: Result Comment: Canc elled via OM: Order cancelled - Patient discharged Performed By: #### M 300.4500, M300.4600 #### [facility] [address] [place], [address] PLT Normal 150-450 [facility] Comment on above: Result Comment: Canc elled via OM: Order cancelled - Patient discharged Performed By: #### M 300.4500, M300.4600 #### [facility] [address] [place], [address] RBC Normal 4.2-5.4 [facility] Comment on above: Result Comment: Canc elled via OM: Order cancelled - Patient discharged Performed By: #### M 300.4500, M300.4600 #### [facility] [address] [place], [address] RDW CV Normal 11.6-14.6 [facility] Comment on above: Result Comment: Canc elled via OM: Order cancelled - Patient discharged Performed By: #### M 300.4500, M300.4600 #### [facility] [address] [place], [address] RDW SD Normal 35.1-43.9 [facility] Comment on above: Result Comment: Canc elled via OM: Order cancelled - Patient discharged Performed By: #### M 300.4500, M300.4600 #### [facility] [address] [place], [address] WBC Normal 4.4-11.0 [facility] Comment on above: Result Comment: Canc elled via OM: Order cancelled - Patient discharged Performed By: #### M 300.4500, M300.4600 #### [facility] [address] [place], [address] Basic Metabolic Profile (BMP )on 12-04-2023 BUN Normal 7-18 [facility] Comment on above: Result Comment: Canc elled via OM: Order cancelled - Patient discharged Performed By: #### L 100.0100, L500.4050 #### [facility] [address] [place], [address] BUN/CRE Normal 10-20 [facility] Comment on above: Result Comment: Canc elled via OM: Order cancelled - Patient discharged Performed By: #### L 100.0100, L500.4050 #### [facility] [address] [place], [address] CA,Total Normal 8.5-10.1 [facility] Comment on above: Result Comment: Canc elled via OM: Order cancelled - Patient discharged Performed By: #### L 100.0100, L500.4050 #### [facility] [address] [place], [address] CL Normal 98-107 [facility] Comment on above: Result Comment: Canc elled via OM: Order cancelled - Patient discharged Performed By: #### L 100.0100, L500.4050 #### [facility] [address] [place], [address] CO2 Normal 21.0-32.0 [facility] Comment on above: Result Comment: Canc elled via OM: Order cancelled - Patient discharged Performed By: #### L 100.0100, L500.4050 #### [facility] [address] [place], [address] CREAT,SERUM Normal 0.55-1.02 [facility] Comment on above: Result Comment: Canc elled via OM: Order cancelled - Patient discharged Performed By: #### L 100.0100, L500.4050 #### [facility] [address] [place], [address] EST GFR Normal >60 [facility] Comment on above: Result Comment: Canc elled via OM: Order cancelled - Patient discharged Performed By: #### L 100.0100, L500.4050 #### [facility] [address] [place], [address] EST GFR - AA Normal >60 [facility] Comment on above: Result Comment: Canc elled via OM: Order cancelled - Patient discharged Performed By: #### L 100.0100, L500.4050 #### [facility] [address] [place], [address] GAP Normal 5-15 [facility] Comment on above: Result Comment: Canc elled via OM: Order cancelled - Patient discharged Performed By: #### L 100.0100, L500.4050 #### [facility] [address] [place], [address] GLU Normal 74-106 [facility] Comment on above: Result Comment: Canc elled via OM: Order cancelled - Patient discharged Performed By: #### L 100.0100, L500.4050 #### [facility] [address] [place], [address] Potassium Normal 3.5-5.1 [facility] Comment on above: Result Comment: Canc elled via OM: Order cancelled - Patient discharged Performed By: #### L 100.0100, L500.4050 #### [facility] [address] [place], [address] Basic Metabolic Profile (BMP) Normal 136-145 [facility] Comment on above: Result Comment: Canc elled via OM: Order cancelled - Patient discharged Performed By: #### L 100.0100, L500.4050 #### [facility] [address] [place], [address] CBC W/Diff, Automatedon 09-2 Absolute Neut Normal 2.0-7.7 [facility] Comment on above: Result Comment: Canc elled via OM: Order cancelled - Patient discharged Performed By: #### L 100.0100, L500.4050 #### [facility] [address] [place], [address] HCT Normal 37-47 [facility] Comment on above: Result Comment: Canc elled via OM: Order cancelled - Patient discharged Performed By: #### L 100.0100, L500.4050 #### [facility] [address] [place], [address] HGB Normal 12.0-15.0 [facility] Comment on above: Result Comment: Canc elled via OM: Order cancelled - Patient discharged Performed By: #### L 100.0100, L500.4050 #### [facility] [address] [place], [address] MCH Normal 27.0-32.0 [facility] Comment on above: Result Comment: Canc elled via OM: Order cancelled - Patient discharged Performed By: #### L 100.0100, L500.4050 #### [facility] [address] [place], [address] MCHC Normal 32-36 [facility] Comment on above: Result Comment: Canc elled via OM: Order cancelled - Patient discharged Performed By: #### L 100.0100, L500.4050 #### [facility] [address] [place], [address] MCV Normal 81-99 [facility] Comment on above: Result Comment: Canc elled via OM: Order cancelled - Patient discharged Performed By: #### L 100.0100, L500.4050 #### [facility] [address] [place], [address] NEUT% Normal 47-70 [facility] Comment on above: Result Comment: Canc elled via OM: Order cancelled - Patient discharged Performed By: #### L 100.0100, L500.4050 #### [facility] [address] [place], [address] PLT Normal 150-450 [facility] Comment on above: Result Comment: Canc elled via OM: Order cancelled - Patient discharged Performed By: #### L 100.0100, L500.4050 #### [facility] [address] [place], [address] RBC Normal 4.2-5.4 [facility] Comment on above: Result Comment: Canc elled via OM: Order cancelled - Patient discharged Performed By: #### L 100.0100, L500.4050 #### [facility] [address] [place], [address] RDW CV Normal 11.6-14.6 [facility] Comment on above: Result Comment: Canc elled via OM: Order cancelled - Patient discharged Performed By: #### L 100.0100, L500.4050 #### [facility] [address] [place], [address] RDW SD Normal 35.1-43.9 [facility] Comment on above: Result Comment: Canc elled via OM: Order cancelled - Patient discharged Performed By: #### L 100.0100, L500.4050 #### [facility] [address] [place], [address] WBC Normal 4.4-11.0 [facility] Comment on above: Result Comment: Canc elled via OM: Order cancelled - Patient discharged Performed By: #### L 100.0100, L500.4050 #### [facility] [address] [place], [address] Respiratory Cultureon 2023 RESPC Presumptive C albica ns Amount Growth 3+ Streptococcus pneumoniae Amount Growth Rare Streptococcus pneumoniae: REACTION Cefotaxime Islt DESTIN <=0.12 S Cefotaxime Islt DESTIN <=0.12 S cefTRIAXone Islt DESTIN <=0.12 S cefTRIAXone Islt DESTIN <=0.12 S Clindamycin Islt DESTIN <=0.25 S Erythromycin Islt DESTIN <=0.12 S levoFLOXacin Islt DESTNI 1 S Moxifloxacin Islt DESTIN 0.12 S TMP SMX Islt DESTIN <=10 S Penicillin Islt DESTIN <=0.06 S Penicillin Islt DESTIN <=0.06 S Penicillin Islt DESTIN <=0.06 S Normal [facility] Comment on above: Performed By: #### L 500.2500, L100.0100, L501.5425, L503.6620 #### [facility] [address] [place], [address] Basic Metabolic Profile (BMP )on 12-03-2023 BUN/CRE 30.6 RATIO High 10-20 [facility] Comment on above: Performed By: #### L 100.0100, L500.4050 #### [facility] [address] [place], [address] CA,Total 9.0 mg/dL Normal 8.5-10.1 [facility] Comment on above: Performed By: #### L 100.0100, L500.4050 #### [facility] [address] [place], [address] Chloride [Moles/Vol] 99 mmol/L Normal 98-107 [facility] Comment on above: Performed By: #### L 100.0100, L500.4050 #### [facility] [address] [place], [address] CO2 [Moles/Vol] 35.0 mmol/L High 21.0-32.0 [facility] Comment on above: Performed By: #### L 100.0100, L500.4050 #### [facility] [address] [place], [address] Creatinine [Mass/Vol] 0.65 mg/dL Normal 0.55-1.02 [facility] Comment on above: Result Comment: The validity of the calculated GFR GFRAA in patients over 70 years has not been determined. Clinical correlation is essential. Performed By: #### L 100.0100, L500.4050 #### [facility] [address] [place], [address] ECRCL 73.39 ml/min Normal [facility] Comment on above: Performed By: #### L 100.0100, L500.4050 #### [facility] [address] [place], [address] EST GFR - AA 114 mL/min Normal >60 [facility] Comment on above: Result Comment: Afri can Russian GFR Calc Performed By: #### L 100.0100, L500.4050 #### [facility] [address] [place], [address] GAP 6 Normal 5-15 [facility] Comment on above: Performed By: #### L 100.0100, L500.4050 #### [facility] [address] [place], [address] GFR/1.73 sq M.predicted among non-blacks MDRD (S/P/Bld) [Vol rate/Area] 95 mL/min/{1.73_m2} Normal >60 [facility] Comment on above: Result Comment: Non- GFR Calc Performed By: #### L 100.0100, L500.4050 #### [facility] [address] [place], [address] Glucose [Mass/Vol] 118 mg/dL High 74-106 [facility] Comment on above: Result Comment: Fast ing Glucose result from 100 to 125 mg/dL suggests IMPAIRED HOMEOSTASIS per A.D.A. criteria. Performed By: #### L 100.0100, L500.4050 #### [facility] [address] [place], [address] Potassium [Moles/Vol] 3.7 mmol/L Normal 3.5-5.1 [facility] Comment on above: Performed By: #### L 100.0100, L500.4050 #### [facility] [address] [place], [address] Sodium [Moles/Vol] 140 mmol/L Normal 136-145 [facility] Comment on above: Performed By: #### L 100.0100, L500.4050 #### [facility] [address] [place], [address] Urea nitrogen [Mass/Vol] 20 mg/dL High 7-18 [facility] Comment on above: Performed By: #### L 100.0100, L500.4050 #### [facility] [address] [place], [address] CBC W/Diff, Automatedon 11-14 PATH REV Reviewed Normal [facility] Comment on above: Result Comment: Leuk ocytosis, ABSOLUTE MONOCYTOSIS Normocytic anemia. MILD Thrombocytopenia. Clinical correlation necessary. Mehul Robins M.D. 12/03/23 AMENDED REPORT 12/03/23 1403 PATH REV previously reported as: July anel Performed By: #### L 100.0100, L500.4050 #### [facility] [address] [place], [address] PATH REV Reviewed Normal [facility] Comment on above: Result Comment: Norm ocytic anemia. Neutrophilic leukocytosis. MILD Thrombocytopenia. Clinical correlation necessary. Mehul Robins M.D. 12/03/23 AMENDED REPORT 12/03/23 1357 PATH REV previously reported as: July Performed By: #### L 100.0100, L500.4050 #### [facility] [address] [place], [address] Discharge Instructionon 11-[address] [facility] Medical Records Department [address] [place] [address] Instructions for Home/Discharge Instructions 12/03/23 1107 MR#: [id number] Acct: [id number] Name: JOANN BAKERRA Johnston Rep #: [id number] : 1950 73 From: Luna Bustamante MD [...] CC: Dr. Davis Irene DO Signed Normal [facility] Urine Cultureon 12-03-2023 URC Below infection leve l. Mixed Gram Pos Gram Neg Org [place] Count 1000-10,000 MIXC Mixed contaminants. Submit a new specimen if indicated. Normal [facility] Comment on above: Performed By: #### M 100.638 #### [facility] [address] [place], [address] URC Presumptive E. coli [place] Count 11,000-25,000 Presumptive E. coli: REACTION Ampicillin [...] TMP SMX Islt DESTIN <=20 S Normal [facility] Comment on above: Performed By: #### L 500.2500, L100.0100, L501.5425, L503.6620 #### [facility] [address] [place], [place], [address] CBC W/Diff, Automatedon 11-13 PATH REV Reviewed Normal [facility] Comment on above: Result Comment: Leuk ocytosis, ABSOLUTE MONOCYTOSIS Normocytic anemia. MILD Thrombocytopenia. Clinical correlation necessary. Mehul Robins M.D. 12/02/23 AMENDED REPORT 12/02/23 1506 PATH REV previously reported as: July anel Performed By: #### L 500.2500, L100.0100, L501.5425, L503.6620 #### [facility] [address] [place], [address] Comprehensive Metabolic Prof ilon 12-02-2023 Albumin [Mass/Vol] 3.2 g/dL Normal 3.2-5.0 [facility] Comment on above: Order Comment: REDRA W. PREVIOUS SPECIMEN REJECTED DUE TO HEMOLYSIS. 12/02/23711 Curt Thacker. Performed By: #### L 500.4050 #### [facility] [address] [place], [address] Albumin/Globulin [Mass ratio] 0.9 {ratio} Normal 0.9-2.4 [facility] Comment on above: Order Comment: REDRA W. PREVIOUS SPECIMEN REJECTED DUE TO HEMOLYSIS. 12/02/23711 Curt Thacker. Performed By: #### L 500.4050 #### [facility] [address] [place], [address] ALK P 82 U/L Normal 45-117 [facility] Comment on above: Order Comment: REDRA W. PREVIOUS SPECIMEN REJECTED DUE TO HEMOLYSIS. 12/02/23711 Curt Thacker. Performed By: #### L 500.4050 #### [facility] [address] [place], [address] ALT [Catalytic activity/Vol] 18 U/L Normal 13-56 [facility] Comment on above: Order Comment: REDRA W. PREVIOUS SPECIMEN REJECTED DUE TO HEMOLYSIS. 12/02/23711 Curt Thacker. Performed By: #### L 500.4050 #### [facility] [address] [place], [address] AST [Catalytic activity/Vol] 7 U/L Low 15-37 [facility] Comment on above: Order Comment: REDRA W. PREVIOUS SPECIMEN REJECTED DUE TO HEMOLYSIS. 12/02/23711 Curt Thacker. Performed By: #### L 500.4050 #### [facility] [address] [place], [address] Bilirubin [Mass/Vol] 1.80 mg/dL High 0.20-1.00 [facility] Comment on above: Order Comment: REDRA W. PREVIOUS SPECIMEN REJECTED DUE TO HEMOLYSIS. 12/02/23711 Curt Thacker. Result Comment: For patients on eltrombopag therapy, use of Dimension [place] TBIL is not recommended. Performed By: #### L 500.4050 #### [facility] [address] [place], [address] BUN/CRE 25.8 RATIO High 10-20 [facility] Comment on above: Order Comment: REDRA W. PREVIOUS SPECIMEN REJECTED DUE TO HEMOLYSIS. 12/02/23711 Curt Thacker. Performed By: #### L 500.4050 #### [facility] [address] [place], [address] CA,Total 9.2 mg/dL Normal 8.5-10.1 [facility] Comment on above: Order Comment: REDRA W. PREVIOUS SPECIMEN REJECTED DUE TO HEMOLYSIS. 12/02/23711 Curt Thacker. Performed By: #### L 500.4050 #### [facility] [address] [place], [address] Chloride [Moles/Vol] 100 mmol/L Normal 98-107 [facility] Comment on above: Order Comment: REDRA W. PREVIOUS SPECIMEN REJECTED DUE TO HEMOLYSIS. 12/02/23711 Curt Thacker. Performed By: #### L 500.4050 #### [facility] [address] [place], [address] CO2 [Moles/Vol] 38.0 mmol/L High 21.0-32.0 [facility] Comment on above: Order Comment: REDRA W. PREVIOUS SPECIMEN REJECTED DUE TO HEMOLYSIS. 12/02/23711 Cutr Thacker. Performed By: #### L 500.4050 #### [facility] [address] [place], [address] Creatinine [Mass/Vol] 0.62 mg/dL Normal 0.55-1.02 [facility] Comment on above: Order Comment: REDRA W. PREVIOUS SPECIMEN REJECTED DUE TO HEMOLYSIS. 12/02/23711 Curt Thacker. Result Comment: The validity of the calculated GFR GFRAA in patients over 70 years has not been determined. Clinical correlation is essential. Performed By: #### L 500.4050 #### [facility] [address] [place], [address] ECRCL 73.39 ml/min Normal [facility] Comment on above: Order Comment: REDRA W. PREVIOUS SPECIMEN REJECTED DUE TO HEMOLYSIS. 12/02/23711 Curt Thacker. Performed By: #### L 500.4050 #### [facility] [address] [place], [address] EST GFR - AA 121 mL/min Normal >60 [facility] Comment on above: Order Comment: REDRA W. PREVIOUS SPECIMEN REJECTED DUE TO HEMOLYSIS. 12/02/23711 Curt Thacker. Result Comment: Afri can Russian GFR Calc Performed By: #### L 500.4050 #### [facility] [address] [place], [address] GAP 3 Low 5-15 [facility] Comment on above: Order Comment: REDRA W. PREVIOUS SPECIMEN REJECTED DUE TO HEMOLYSIS. 12/02/23711 Curt Thacker. Performed By: #### L 500.4050 #### [facility] [address] [place], [address] GFR/1.73 sq M.predicted among non-blacks MDRD (S/P/Bld) [Vol rate/Area] 100 mL/min/{1.73_m2} Normal >60 [facility] Comment on above: Order Comment: REDRA W. PREVIOUS SPECIMEN REJECTED DUE TO HEMOLYSIS. 12/02/23711 Curt Thacker. Result Comment: Non- GFR Calc Performed By: #### L 500.4050 #### [facility] [address] [place], [address] Globulin (S) [Mass/Vol] 3.5 g/dL Normal 2.2-4.2 [facility] Comment on above: Order Comment: REDRA W. PREVIOUS SPECIMEN REJECTED DUE TO HEMOLYSIS. 12/02/23711 Curt Thacker. Performed By: #### L 500.4050 #### [facility] [address] [place], [address] Glucose [Mass/Vol] 132 mg/dL High 74-106 [facility] Comment on above: Order Comment: REDRA W. PREVIOUS SPECIMEN REJECTED DUE TO HEMOLYSIS. 12/02/23711 Curt Thacker. Result Comment: Fast ing Glucose result greater than or equal to 126 mg/dL suggests DIABETES MELLITUS per A.D.A. criteria. Performed By: #### L 500.4050 #### [facility] [address] [place], [address] Potassium [Moles/Vol] 3.9 mmol/L Normal 3.5-5.1 [facility] Comment on above: Order Comment: REDRA W. PREVIOUS SPECIMEN REJECTED DUE TO HEMOLYSIS. 12/02/23711 Curt Thacker. Performed By: #### L 500.4050 #### [facility] [address] [place], [address] Sodium [Moles/Vol] 141 mmol/L Normal 136-145 [facility] Comment on above: Order Comment: REDRA W. PREVIOUS SPECIMEN REJECTED DUE TO HEMOLYSIS. 12/02/23711 Curt Thacker. Performed By: #### L 500.4050 #### [facility] [address] [place], [address] T PROT 6.7 g/dL Normal 6.4-8.2 [facility] Comment on above: Order Comment: REDRA W. PREVIOUS SPECIMEN REJECTED DUE TO HEMOLYSIS. 12/02/23711 Curt Thacker. Performed By: #### L 500.4050 #### [facility] [address] [place], [address] Urea nitrogen [Mass/Vol] 16 mg/dL Normal 7-18 [facility] Comment on above: Order Comment: REDRA W. PREVIOUS SPECIMEN REJECTED DUE TO HEMOLYSIS. 12/02/23 0712 Curt L White. Performed By: #### L 500.4050 #### [facility] [address] [place], [address] ALB Normal 3.2-5.0 [facility] Comment on above: Result Comment: This specimen has been REJECTED due to Laboratory criteria: Hemolyzed. BIOCHEMICAL DEVELOPMENT ENGINEER has been notified of need of recollection. 12/02/23 07 Curt L White Performed By: #### L 100.0100, L500.4050 #### [facility] [address] [place], [address] ALK P Normal 45-117 [facility] Comment on above: Result Comment: This specimen has been REJECTED due to Laboratory criteria: Hemolyzed. BIOCHEMICAL DEVELOPMENT ENGINEER has been notified of need of recollection. 12/02/23 07 Curt L White Performed By: #### L 100.0100, L500.4050 #### [facility] [address] [place], [address] ALT Normal 13-56 [facility] Comment on above: Result Comment: This specimen has been REJECTED due to Laboratory criteria: Hemolyzed. BIOCHEMICAL DEVELOPMENT ENGINEER has been notified of need of recollection. 12/02/23 07 Curt L White Performed By: #### L 100.0100, L500.4050 #### [facility] [address] [place], [address] AST Normal 15-37 [facility] Comment on above: Result Comment: This specimen has been REJECTED due to Laboratory criteria: Hemolyzed. BIOCHEMICAL DEVELOPMENT ENGINEER has been notified of need of recollection. 12/02/23 07 Curt L White Performed By: #### L 100.0100, L500.4050 #### [facility] [address] [place], [address] BUN Normal 7-18 [facility] Comment on above: Result Comment: This specimen has been REJECTED due to Laboratory criteria: Hemolyzed. BIOCHEMICAL DEVELOPMENT ENGINEER has been notified of need of recollection. 12/02/23708 Curt L White Performed By: #### L 100.0100, L500.4050 #### [facility] [address] [place], [address] BUN/CRE Normal 10-20 [facility] Comment on above: Result Comment: This specimen has been REJECTED due to Laboratory criteria: Hemolyzed. BIOCHEMICAL DEVELOPMENT ENGINEER has been notified of need of recollection. 12/02/23708 Curt L White Performed By: #### L 100.0100, L500.4050 #### [facility] [address] [place], [address] CA,Total Normal 8.5-10.1 [facility] Comment on above: Result Comment: This specimen has been REJECTED due to Laboratory criteria: Hemolyzed. BIOCHEMICAL DEVELOPMENT ENGINEER has been notified of need of recollection. 12/02/23708 Curt L White Performed By: #### L 100.0100, L500.4050 #### [facility] [address] [place], [address] CL Normal 98-107 [facility] Comment on above: Result Comment: This specimen has been REJECTED due to Laboratory criteria: Hemolyzed. BIOCHEMICAL DEVELOPMENT ENGINEER has been notified of need of recollection. 12/02/23708 Curt L White Performed By: #### L 100.0100, L500.4050 #### [facility] [address] [place], [address] CO2 Normal 21.0-32.0 [facility] Comment on above: Result Comment: This specimen has been REJECTED due to Laboratory criteria: Hemolyzed. BIOCHEMICAL DEVELOPMENT ENGINEER has been notified of need of recollection. 12/02/23708 Curt L White Performed By: #### L 100.0100, L500.4050 #### [facility] [address] [place], [address] CREAT,SERUM Normal 0.55-1.02 [facility] Comment on above: Result Comment: This specimen has been REJECTED due to Laboratory criteria: Hemolyzed. BIOCHEMICAL DEVELOPMENT ENGINEER has been notified of need of recollection. 12/02/23 07 Curt L White Performed By: #### L 100.0100, L500.4050 #### [facility] [address] [place], [address] EST GFR Normal >60 [facility] Comment on above: Result Comment: This specimen has been REJECTED due to Laboratory criteria: Hemolyzed. BIOCHEMICAL DEVELOPMENT ENGINEER has been notified of need of recollection. 12/02/23708 Curt L White Performed By: #### L 100.0100, L500.4050 #### [facility] [address] [place], [address] EST GFR - AA Normal >60 [facility] Comment on above: Result Comment: This specimen has been REJECTED due to Laboratory criteria: Hemolyzed. BIOCHEMICAL DEVELOPMENT ENGINEER has been notified of need of recollection. 12/02/23708 Curt L White Performed By: #### L 100.0100, L500.4050 #### [facility] [address] [place], [address] GAP Normal 5-15 [facility] Comment on above: Result Comment: This specimen has been REJECTED due to Laboratory criteria: Hemolyzed. BIOCHEMICAL DEVELOPMENT ENGINEER has been notified of need of recollection. 12/02/23708 Curt L White Performed By: #### L 100.0100, L500.4050 #### [facility] [address] [place], [address] GLU Normal 74-106 [facility] Comment on above: Result Comment: This specimen has been REJECTED due to Laboratory criteria: Hemolyzed. BIOCHEMICAL DEVELOPMENT ENGINEER has been notified of need of recollection. 12/02/23708 Curt L White Performed By: #### L 100.0100, L500.4050 #### [facility] [address] [place], [address] Potassium Normal 3.5-5.1 [facility] Comment on above: Result Comment: This specimen has been REJECTED due to Laboratory criteria: Hemolyzed. BIOCHEMICAL DEVELOPMENT ENGINEER has been notified of need of recollection. 12/02/23 07 Curt L White Performed By: #### L 100.0100, L500.4050 #### [facility] [address] [place], [address] T BILI Normal 0.20-1.00 [facility] Comment on above: Result Comment: This specimen has been REJECTED due to Laboratory criteria: Hemolyzed. BIOCHEMICAL DEVELOPMENT ENGINEER has been notified of need of recollection. 12/02/23708 Curt L White Performed By: #### L 100.0100, L500.4050 #### [facility] [address] [place], [address] T PROT Normal 6.4-8.2 [facility] Comment on above: Result Comment: This specimen has been REJECTED due to Laboratory criteria: Hemolyzed. BIOCHEMICAL DEVELOPMENT ENGINEER has been notified of need of recollection. 12/02/23708 Curt L White Performed By: #### L 100.0100, L500.4050 #### [facility] [address] [place], [address] Comprehensive Metabolic Profil Normal 136-145 [facility] Comment on above: Result Comment: This specimen has been REJECTED due to Laboratory criteria: Hemolyzed. BIOCHEMICAL DEVELOPMENT ENGINEER has been notified of need of recollection. 12/02/23708 Curt L White Performed By: #### L 100.0100, L500.4050 #### [facility] [address] [place], [address] Gram Stainon 12-02-2023 GS Acceptable Specimen? Yes (<25 Epithelial cells per/lpf) Gram Stain 1+ Yeast Like Organisms 3+ White Blood Cells 2+ Gram positive cocci 2+ Gram positive rods Rare Epithelial cells Normal [facility] Comment on above: Performed By: #### L 500.2500, L100.0100, L501.5425, L503.6620 #### [facility] [address] [place], [address] 12 Lead EKGon 12-01-2023 12 Lead EKG [facility] [address] [place] [address] 12 Lead EKG 12/01/23 1126 MR#: [id number] Acct: [id number] Name: ALTA BAKER Rep #: [id number] : 1950 73 From: Brayan Link MD Attending Dr: Dr. Luna Bustamante MD Status: DI S IN Ordering Dr: Kavin Rayo DO Date: 12/01/23 Location: [facility] Sex: F C Admitted: 12/01/23 Test Reason : SOB Blood Pressure : / mmHG Vent. Rate : 099 BPM Atrial Rate : 000 BPM P-R Int : 000 ms QRS Dur : 086 ms QT Int : 326 ms P-R-T Axes : 000 057 059 degrees QTc Int : 418 ms Atrial fibrillation Abnormal ECG Confirmed by Brayan Link ([id number]), newspaper editor KRISSY MORALES ([id number]) on 12/06/2023 10:20:42 AM Referred By: Kavin Rayo Confirmed By:Brayan Link 12/06/23 1020 Date Brayan Link MD CC: Dr. Davis Irene DO; Dr. Luna Bustamante MD; Dr. Kavin Rayo DO Signed Normal [facility] Alkaline Phosphataseon 11-30 ALK P 73 U/L Normal 45-117 [facility] Comment on above: Performed By: #### M 300.4505, M300.4600 #### [facility] [address] [place], [address] BNP,B-Type NATRIURETIC PEPTI Demario 12-01-2023 Natriuretic peptide B (Bld) [Mass/Vol] 312.3 pg/mL High 0-100 [facility] Comment on above: Performed By: #### M 300.4500, M300.4600 #### [facility] [address] [place], [address] Basic Metabolic Profile (BMP )on 12-01-2023 BUN/CRE 19.7 RATIO Normal 10-20 [facility] Comment on above: Order Comment: 1 Y Performed By: #### L 500.2500, L100.0100, L501.5425, L503.6620 #### [facility] [address] [place], [address] CA,Total 9.9 mg/dL Normal 8.5-10.1 [facility] Comment on above: Order Comment: 1 Y Performed By: #### L 500.2500, L100.0100, L501.5425, L503.6620 #### [facility] [address] [place], [address] Chloride [Moles/Vol] 95 mmol/L Low 98-107 [facility] Comment on above: Order Comment: 1 Y Performed By: #### L 500.2500, L100.0100, L501.5425, L503.6620 #### [facility] [address] [place], [address] CO2 [Moles/Vol] 39.0 mmol/L High 21.0-32.0 [facility] Comment on above: Order Comment: 1 Y Performed By: #### L 500.2500, L100.0100, L501.5425, L503.6620 #### [facility] [address] [place], [address] Creatinine [Mass/Vol] 0.71 mg/dL Normal 0.55-1.02 [facility] Comment on above: Order Comment: 1 Y Result Comment: The validity of the calculated GFR GFRAA in patients over 70 years has not been determined. Clinical correlation is essential. Performed By: #### L 500.2500, L100.0100, L501.5425, L503.6620 #### [facility] [address] [place], [address] ECRCL 74.72 ml/min Normal [facility] Comment on above: Order Comment: 1 Y Performed By: #### L 500.2500, L100.0100, L501.5425, L503.6620 #### [facility] [address] [place], [address] EST GFR - AA 104 mL/min Normal >60 [facility] Comment on above: Order Comment: 1 Y Result Comment: Afri can Russian GFR Calc Performed By: #### L 500.2500, L100.0100, L501.5425, L503.6620 #### [facility] [address] [place], [address] GAP 5 Normal 5-15 [facility] Comment on above: Order Comment: 1 Y Performed By: #### L 500.2500, L100.0100, L501.5425, L503.6620 #### [facility] [address] [place], [address] GFR/1.73 sq M.predicted among non-blacks MDRD (S/P/Bld) [Vol rate/Area] 86 mL/min/{1.73_m2} Normal >60 [facility] Comment on above: Order Comment: 1 Y Result Comment: Non- GFR Calc Performed By: #### L 500.2500, L100.0100, L501.5425, L503.6620 #### [facility] [address] [place], [address] Glucose [Mass/Vol] 132 mg/dL High 74-106 [facility] Comment on above: Order Comment: 1 Y Result Comment: Fast ing Glucose result greater than or equal to 126 mg/dL suggests DIABETES MELLITUS per A.D.A. criteria. Performed By: #### L 500.2500, L100.0100, L501.5425, L503.6620 #### [facility] [address] [place], [address] Potassium [Moles/Vol] 3.9 mmol/L Normal 3.5-5.1 [facility] Comment on above: Order Comment: 1 Y Performed By: #### L 500.2500, L100.0100, L501.5425, L503.6620 #### [facility] [address] [place], [address] Sodium [Moles/Vol] 139 mmol/L Normal 136-145 [facility] Comment on above: Order Comment: 1 Y Performed By: #### L 500.2500, L100.0100, L501.5425, L503.6620 #### [facility] [address] [place], [address] Urea nitrogen [Mass/Vol] 14 mg/dL Normal 7-18 [facility] Comment on above: Order Comment: 1 Y Performed By: #### L 500.2500, L100.0100, L501.5425, L503.6620 #### [facility] [address] [place], [address] Chest PA and Lateralon 11-30 Chest PA and Lateral [facility] [address] [place] [address] Chest PA and Lateral MR#: [id number] Acct: [id number] Name: ALTA BAKER Rep #: [id number] : 1950 F 73 From: Aris torrez MD PCP: Dr. Davis Irene DO Status: REG ER Study: Chest PA and Lateral Date of Exam: 12/01/23 Exam# [id number] Ordering Dr: Kavin Rayo DO [id number] STUDY: X-RAY CHEST REASON FOR EXAM: Female, [...] 12:12 EDT Reading Location ID and State: [address] [place] [address] , Service support , CC: Dr. Davis Irene DO; Dr. Kavin Rayo DO Developer Designer: Signed Normal [facility] Emergency Department Summary on 12-01-[address] [facility] Medical Records Department [address] [place] [address] Emergency Department Summary 12/01/23 MR#: [id number] Acct: [id number] Name: ALTA BAKER Rep #: [id number] : 1950 73 From: Kavin Rayo DO [...] compliant with her anticoagulation not missing doses. [facility] Medical History Asthma Depression Atrial fibrillation [...] @ 11:2 (more content not included)... Normal [facility] H AND P Exam - Hospitaliston 12-01-2023 H&P Exam - Hospitalist [facility] Medical Records Department [address] [place] [address] H P Exam - Hospitalist 12/01/23 1252 MR#: [id number] Acct: [id number] Name: ALTA BAKER Rep #: [id number] : 1950 73 From: Luna Bustamante MD PCP: Dr. Davis Irene, DO Status:ADM IN [facility] HPI - General General Date of Admission: [...] in the ED were BP of 151/91, PA of 89, RR of 22 and temp [...] IV vancomycin and zosyn in the ED. [facility] Medical History (Updated 12/01/23 @ 14:44 [...] focal w (more content not included)... Normal [facility] L501.4020on 12-01-2023 TROPONIN-I HS 12 pg/mL Normal 3.0-54.0 [facility] Comment on above: Result Comment: Plea se Note: New Test Units and Gender Specific Reference Ranges. For more information see Policy Stat Procedure [place] High Sensitivity Troponin (TNIH) and attachments. Performed By: #### L 100.0100, L500.4050 #### [facility] [address] [place], [place], [address] L501.5425on 12-01-2023 TROPONIN-I HS 11 pg/mL Normal 3.0-54.0 [facility] Comment on above: Order Comment: 1Y Result Comment: Plea se Note: New Test Units and Gender Specific Reference Ranges. For more information see Policy Stat Procedure [place] High Sensitivity Troponin (TNIH) and attachments. Performed By: #### M 300.4500, M300.4600 #### [facility] [address] [place], [address] Lactic Acidon 12-01-2023 Lactate [Moles/Vol] 1.6 mmol/L Normal 0.4-1.9 [facility] Comment on above: Order Comment: Y Performed By: #### L 100.0100, L500.4050 #### [facility] [address] [place], [address] Legionella Antigen Urineon 0 12-01-2023 LEGU URINE, CLEAN CATCH L pneumo Ag Ur Ql Negative Presumptive negative for Legionella pneumophila serogroup 1 antigen in urine, suggesting no recent or current infection. Legionella Ag, Urine Negative (See interpretation below) [facility] Comment on above: Performed By: #### M 100.638 #### [facility] [address] [place], [address] M100.678on 12-01-2023 M100.678 Copy of report sent to Infection Control Printer [id number] 12/01/23 1257 MLREY. SARS-CoV-2 (COVID 19) A Positive A INFLUENZA A Negative INFLUENZA B Negative RSV PCR Negative [facility] Comment on above: Performed By: #### M 300.4500, M300.4600 #### [facility] [address] [place], [address] Strep pneumoniae Antig(UR,CS F)on 12-01-2023 STPAG URINE, CLEAN CATCH Strep pneumoniae Antig(UR,CSF) [] Negative Urine Presumptive negative for pneumococcal pneumonia, suggesting no current or recent pneumococcal infection. Infection due to S pneumoniae cannot be ruled out since the antigen present in the sample may be below the detection limit of the test. Strep pneumo Test Negative URINE (See interpretation below) [facility] Comment on above: Performed By: #### M 100.638 #### [facility] [address] [place], [address] Urinalysis, Completeon 11-30 AMORPHOUS 1+ [facility] Comment on above: Order Comment: COLLE CTOR TO SPECIFY Performed By: #### L 400.0001 #### [facility] [address] [place], [address] RBC 0-5 SEEN Normal 0-5 [facility] Comment on above: Order Comment: GRIFFIN CTOR TO SPECIFY Performed By: #### L 400.0001 #### [facility] [address] [place], [address] WBC 0-5 SEEN Normal 0-5 [facility] Comment on above: Order Comment: GRIFFIN CTOR TO SPECIFY Performed By: #### L 400.0001 #### [facility] [address] [place], [address] BACTERIA 3+ /hpf Normal None Seen [facility] Comment on above: Order Comment: GRIFFIN CTOR TO SPECIFY Performed By: #### L 400.0001 #### [facility] [address] [place], [address] EPI,SQUAMOUS 0-5 SEEN Normal 5-10 [facility] Comment on above: Order Comment: GRIFFIN CTOR TO SPECIFY Performed By: #### L 400.0001 #### [facility] [address] [place], [address] Mucus Ql (Urine sed) 0 SEEN Normal [facility] Comment on above: Order Comment: GRIFFIN CTOR TO SPECIFY Performed By: #### L 400.0001 #### [facility] [address] [place], [address] ECG 12 lead - CLINIC PERFORM EDon 08-11-2023 [facility] Breast - bilateral scree ningon 08-02-2023 [...] Electronically Signed Date/Time: 08/02/2023 10:33 AM EDT [facility] Patient Name: ALTA MOYA : 1950 Exam Date/Time: 08/02/2023 10:21 Procedure: BI MAMMOGRAM SCREENING TOMOSYNTHESIS BILATERAL Ordering Provider: IBARRA EUGENE Reason For Exam: screen Image views: 2D Bilateral CC and MLO views were acquired. 3D Bilateral CC and MLO views were acquired. Images were reviewed with CAD. Markings on images: BB's = Nipples; skin lesions [place] = Palpable Line = Scar COMPARISON: 2021; 2018 TISSUE DENSITY: BIRADS B - There are scattered fibroglandular densities. FINDINGS: No suspicious masses, architectural distortions or suspiciously clustered microcalcifications are identified. There are no significant changes when compared with prior studies. [facility] Petra García MD - 08/02/2023 Patient Name: ALTA BAKER : 1950 Exam Date/Time: 08/02/2023 10:21 Procedure: BI MAMMOGRAM SCREENING TOMOSYNTHESIS BILATERAL Ordering Provider: IBARRA EUGENE Reason For Exam: screen Image views: 2D Bilateral CC and MLO views were acquired. 3D Bilateral CC and MLO views were acquired. Images were reviewed with CAD. Markings on images: BB's = Nipples; skin lesions Open pyramid lake = Palpable Line = Scar COMPARISON: 2021; [...] Electronically Signed Date/Time: 08/02/2023 10:33 AM EDT [facility] Radiology Study observation (narrative) [facility] DBT Breast - bilateral scree ningOrdered By: Petra García on 08-02-2023 [facility] Work Phone: Digoxin levelon 07-22-2022 Digoxin [Mass/Vol] 1.1 ng/mL 0.8 - 2.0 ng/mL [facility] Interpretation and review of laboratory results Normal [facility] Absolute lymphocyte counton 01-22-2022 Lymphocytes Auto (Unsp spec) [#/Vol] 2.00 10*3/uL 0.83-4.51 [facility] Work Phone: Basophil percentageon 2021 Basophils/100 WBC (Bld) 0.3 % 0-1 [facility] Work Phone: Chloride [Moles/Vol] 98 mmol/L 98-107 [facility] Work Phone: Eosinophils/100 WBC (Bld) 0.0 % 0-5 [facility] Work Phone: Glucose [Mass/Vol] 120 mg/dL 74-106 [facility] Work Phone: Comment on above: Fasting Glucose resu lt from 100 to 125 mg/dL suggests IMPAIRED HOMEOSTASIS per A.D.A. criteria. Neutrophils (Bld) [#/Vol] 12.6 10*3/uL 2.0-7.7 [facility] Work Phone: Neutrophils/100 WBC (Bld) 62.2 % 47-70 [facility] Work Phone: [phone] Potassium [Moles/Vol] 3.6 mmol/L 3.5-5.1 [facility] Work Phone: Sodium [Moles/Vol] 141 mmol/L 136-145 [facility] Work [facility]: WBC (Bld) [#/Vol] 20.3 10*3/uL 4.4-11.0 [facility] Work Phone: Blood erythrocytes count (nu mber/volume)on 01-22-2022 RBC (Bld) [#/Vol] 5.21 10*6/uL 4.2-5.4 [facility] Work Phone: Blood hemoglobin measurement (mass/volume)on 01-22-2022 Hemoglobin (Bld) [Mass/Vol] 14.4 g/dL 12.0-15.0 [facility] Work Phone: Blood lymphocytes/100 leukoc yteson 01-22-2022 Lymphocytes/100 WBC (Bld) 9.9 % 19-41 [facility] Work Phone: Blood manual differential co mment interpretation (narrative result)on 01-22-2022 Manual differential comment Willis (Bld) [Interp] SCANNED [facility] Work Phone: Blood monocytes/100 leukocyt eson 01-22-2022 Monocytes/100 WBC (Bld) 25.5 % 0-10 [facility] Work Phone: Blood platelet mean volumeon 01-22-2022 Platelet mean volume (Bld) [Entitic vol] 12.6 fL 6.2-12.0 [facility] Work Phone: Determination of erythrocyte mean corpuscular volume (MCV)on 01-22-2022 MCV (RBC) [Entitic vol] 88.7 fL 81-99 [facility] Work Phone: Glucose Glucometer (BldC) [M ass/Vol]on 01-22-2022 Glucose [Mass/Vol] 221 mg/dL 74-106 [facility] Work Phone: Comment on above: MANAGEMENT OF PATIEN T CARE PER NURSING PROTOCOL Hematocrit Auto (Bld) [Volum e fraction]on 01-22-2022 Hematocrit (Bld) [Volume fraction] 46.2 % 37-47 [facility] Work Phone: Laboratory - Chemistry and C hemistry - challengeon 01-22-2022 CO2 [Moles/Vol] 35.0 mmol/L 21.0-32.0 [facility] Work Phone: Urea nitrogen/Creatinine [Mass ratio] 32.3 mg/mg 10-20 [facility] Work Phone: Laboratory - Hematology and Cell countson 01-22-2022 Erythrocyte distribution width (RBC) [Entitic vol] 47.0 fL 35.1-43.9 [facility] Work Phone: Erythrocyte distribution width (RBC) [Ratio] 14.5 % 11.6-14.6 [facility] Work Phone: Immature granulocytes/100 WBC (Bld) 2.100 % 0.0-0.9 [facility] Work Phone: Comment on above: IG% - Immature Granu locytes (promyelocytes, myelocytes and metamyelocytes) > 1% indicates that a LEFT SHIFT is Present. MCH (RBC) [Entitic mass] 27.6 pg 27.0-32.0 [facility] Work Phone: Nucleated RBC/100 WBC (Bld) [Ratio] 0 % 0-5 [facility] Work Phone: MCHC Auto (RBC) [Mass/Vol]on 01-22-2022 MCHC (RBC) [Mass/Vol] 31.2 g/dL 32-36 [facility] Work Phone: No Panel Informationon 01-22 Estimated Creatinine Clearance Calc 110.28 ml/min [facility] Work Phone: Estimated GFR (MDRD) Amer 83 mL/min >60 [facility] Work Phone: Comment on above: GFR Calc Estimated GFR (MDRD) Non-Af Amer 69 mL/min >60 [facility] Work Phone: Comment on above: Non- GFR Calc Platelets bldon 01-22-2022 Platelets (Bld) [#/Vol] 152 10*3/uL 150-450 [facility] Work Phone: Review by pathologiston 01-13 Pathologist review Willis (Unsp spec) [Interp] Reviewed [facility] Work Phone: Comment on above: Previous reported re sult: Cindi tam Edited by: VICK on 01/22/22:1540Leukocytosis. Clinical correlation necessary.Mehul Robins M.D. 01/22/22 AMENDED REPORT 01/22/22 1540 PATH REV previously reported as: Cindi tam Serum or plasma calcium betzaida urement (mass/volume)on 01-22-2022 Calcium [Mass/Vol] 9.2 mg/dL 8.5-10.1 [facility] Work Phone: Serum or plasma creatinine m easurement (mass/volume)on 01-22-2022 Creatinine [Mass/Vol] 0.87 mg/dL 0.55-1.02 [facility] Work Phone: Comment on above: The validity of the calculated GFR & GFRAA in patients over 70 years has not been determined. Clinical correlation is essential. Serum or plasma urea nitroge n measurement (mass/volume)on 01-22-2022 Urea nitrogen [Mass/Vol] 28 mg/dL 7-18 [facility] Work Phone: Thin prep Papanicolaou smear with manual screeningon 01-22-2022 Thin prep Papanicolaou smear with manual screening 8 5-15 [facility] Work Phone: Basophil percentageon 2021 Basophil percentage 3.2 mg/dL 2.5-4.9 [facility] Work Phone: Laboratory - Chemistry and C hemistry - challengeon 01-19-2022 Magnesium [Mass/Vol] 2.5 mg/dL 1.6-2.6 [facility] Work Phone: No Panel Informationon 01-19 Thyroid Stimulating Hormone (TSH) 0.74 uIU/mL 0.358-3.74 [facility] Work Phone: Absolute lymphocyte counton 01-18-2022 Lymphocytes Auto (Unsp spec) [#/Vol] 1.37 10*3/uL 0.83-4.51 [facility] Work Phone: Assessment of wrist artery p atency prior to arterial punctureon 01-18-2022 Arterial patency Wrist artery --pre arterial puncture Positive [facility] Work Phone: Base excesson 01-18-2022 Base excess Calc (BldV) [Moles/Vol] 5 mmol/L -2-2 [facility] Work Phone: Basophil percentageon 2021 Basophil percentage 31.1 mmol/L 22-26 [facility] Work Phone: Basophils/100 WBC (Bld) 87 % 95-99 [facility] Work Phone: Basophils/100 WBC (Bld) 0.3 % 0-1 [facility] Work Phone: Bilirubin [Mass/Vol] 1.10 mg/dL 0.20-1.00 [facility] Work Phone: Comment on above: For patients on eltr ombopag therapy, use of Dimension [place] TBIL is not recommended. Chloride [Moles/Vol] 100 mmol/L 98-107 [facility] Work Phone: Eosinophils/100 WBC (Bld) 0.3 % 0-5 [facility] Work Phone: Glucose [Mass/Vol] 172 mg/dL 74-106 [facility] Work Phone: Comment on above: Fasting Glucose resu lt greater than or equal to 126 mg/dL suggests DIABETES MELLITUS per A.D.A. criteria. Lactate [Moles/Vol] 1.5 mmol/L 0.4-2.0 [facility] Work Phone: Neutrophils (Bld) [#/Vol] 9.6 10*3/uL 2.0-7.7 [facility] Work Phone: Neutrophils/100 WBC (Bld) 67.6 % 47-70 [facility] Work Phone: Potassium [Moles/Vol] 4.3 mmol/L 3.5-5.1 [facility] Work Phone: Protein [Mass/Vol] 8.4 g/dL 6.4-8.2 [facility] Work Phone: [phone] Sodium [Moles/Vol] 140 mmol/L 136-145 [facility] Work Phone: WBC (Bld) [#/Vol] 14.1 10*3/uL 4.4-11.0 [facility] Work Phone: Blood erythrocytes count (nu mber/volume)on 01-18-2022 RBC (Bld) [#/Vol] 5.15 10*6/uL 4.2-5.4 [facility] Work Phone: Blood hemoglobin measurement (mass/volume)on 01-18-2022 Hemoglobin (Bld) [Mass/Vol] 14.3 g/dL 12.0-15.0 [facility] Work Phone: Blood lymphocytes/100 leukoc yteson 01-18-2022 Lymphocytes/100 WBC (Bld) 9.7 % 19-41 [facility] Work Phone: Blood manual differential co mment interpretation (narrative result)on 01-18-2022 Manual differential comment Willis (Bld) [Interp] SCANNED [facility] Work Phone: Blood monocytes/100 leukocyt eson 01-18-2022 Monocytes/100 WBC (Bld) 21.4 % 0-10 [facility] Work Phone: Blood platelet mean volumeon 01-18-2022 Platelet mean volume (Bld) [Entitic vol] 12.6 fL 6.2-12.0 [facility] Work Phone: CO2 (BldA) [Partial pressure ]on 01-18-2022 CO2 (Bld) [Partial pressure] 58.6 mm[Hg] 35-45 [facility] Work Phone: Determination of erythrocyte mean corpuscular volume (MCV)on 01-18-2022 MCV (RBC) [Entitic vol] 87.8 fL 81-99 [facility] Work Phone: Hematocrit Auto (Bld) [Volum e fraction]on 01-18-2022 Hematocrit (Bld) [Volume fraction] 45.2 % 37-47 [facility] Work Phone: Laboratory - Chemistry and C hemistry - challengeon 01-18-2022 ALP [Catalytic activity/Vol] 88 U/L 45-117 [facility] Work Phone: ALT [Catalytic activity/Vol] 23 U/L 13-56 [facility] Work Phone: CO2 [Moles/Vol] 31.0 mmol/L 21.0-32.0 [facility] Work Phone: Globulin (S) [Mass/Vol] 4.1 g/dL 2.2-4.2 [facility] Work Phone: Urea nitrogen/Creatinine [Mass ratio] 21.3 mg/mg 10-20 [facility] Work Phone: Laboratory - Hematology and Cell countson 01-18-2022 Erythrocyte distribution width (RBC) [Entitic vol] 46.1 fL 35.1-43.9 [facility] Work Phone: Erythrocyte distribution width (RBC) [Ratio] 14.4 % 11.6-14.6 [facility] Work Phone: Immature granulocytes/100 WBC (Bld) 0.700 % 0.0-0.9 [facility] Work Phone: Comment on above: IG% - Immature Granu locytes (promyelocytes, myelocytes and metamyelocytes) > 1% indicates that a LEFT SHIFT is Present. MCH (RBC) [Entitic mass] 27.8 pg 27.0-32.0 [facility] Work Phone: Nucleated RBC/100 WBC (Bld) [Ratio] 0 % 0-5 [facility] Work Phone: MCHC Auto (RBC) [Mass/Vol]on 01-18-2022 MCHC (RBC) [Mass/Vol] 31.6 g/dL 32-36 [facility] Work Phone: No Panel Informationon 01-18 Blood Gas Liter Flow 3.0 /min [facility] Work Phone: Blood Gas Sample Site R Radial [facility] Work Phone: Blood Gas Specimen Type ART [facility] Work Phone: Blood Gas Total CO2 33 mmol/L [facility] Work Phone: Oxygen Delivery Device Cannula [facility] Work Phone: Estimated Creatinine Clearance Calc 98.44 ml/min [facility] Work Phone: Estimated GFR (MDRD) Amer 71 mL/min >60 [facility] Work Phone: Comment on above: GFR Calc Estimated GFR (MDRD) Non-Af Amer 59 mL/min >60 [facility] Work Phone: Comment on above: Non- GFR Calc Oxygen (BldA) [Partial press ure]on 01-18-2022 Oxygen (Bld) [Partial pressure] 59 mmHG 75-100 [facility] Work Phone: Platelets bldon 01-18-2022 Platelets (Bld) [#/Vol] 154 10*3/uL 150-450 [facility] Work Phone: [phone] Review by pathologiston 11- Pathologist review Willis (Unsp spec) [Interp] May anel [facility] Work Phone: Serum or plasma albumin betzaida urement (mass/volume)on 01-18-2022 Albumin [Mass/Vol] 4.3 g/dL 3.2-5.0 [facility] Work Phone: Serum or plasma albumin/glob ulin mass ratioon 01-18-2022 Albumin/Globulin [Mass ratio] 1.0 {ratio} 0.9-2.4 [facility] Work Phone: Serum or plasma calcium betzaida urement (mass/volume)on 01-18-2022 Calcium [Mass/Vol] 9.9 mg/dL 8.5-10.1 [facility] Work Phone: Serum or plasma creatinine m easurement (mass/volume)on 01-18-2022 Creatinine [Mass/Vol] 0.99 mg/dL 0.55-1.02 [facility] Work Phone: Comment on above: The validity of the calculated GFR & GFRAA in patients over 70 years has not been determined. Clinical correlation is essential. Serum or plasma urea nitroge n measurement (mass/volume)on 01-18-2022 Urea nitrogen [Mass/Vol] 21 mg/dL 7-18 [facility] Work Phone: Thin prep Papanicolaou smear with manual screeningon 01-18-2022 Thin prep Papanicolaou smear with manual screening 12 U/L 15-37 [facility] Work Phone: Thin prep Papanicolaou smear with manual screening 9 5-15 [facility] Work Phone: Whole blood hemoglobin A1c/t otal hemoglobin ratio (mass fraction)on 01-18-2022 HbA1c (Bld) [Mass fraction] 5.9 % 3.8-5.6 [facility] Work Phone: Comment on above: Normal < 5.7 % Predi abetic 5.7 - 6.4 % Diabetic >or= 6.5 % Please note range changes. pH measurementon 01-18-2022 pH (Unsp spec) 7.33 [pH] 7.35-7.45 [facility] Work Phone: Prothrombin Timeon 2 INR 1.8 High 0.9-1.1 [facility] Comment on above: Result Comment: Hong [...] #### L MILES ESPARZA, MD MANISHIFF #### [facility] [address] [place] [address] PT Coag (PPP) [Time] 18.8 s High 9.0-12.0 [facility] Comment on above: Result Comment: . Performed By: #### L MILES ESPARZA, MANISH MDIFF #### [facility] [address] [place] [address] Protime-INRon 12-01-2021 INR Coag (Bld) [Relative time] 1.8 {INR} High [facility] Comment on above: Recommended Anticoag ulant Therapy: [...] and review of laboratory results Abnormal [facility] PT Coag (PPP) [Time] 18.8 s High 9 - 12 s [facility] Comment on above: . Test Performed by [facility], [address] , [place] [id number] [place] [address] LAB [facility] Prothrombin Timeon 2 INR 4.6 Critically high 0.9-1.1 [facility] Comment on above: Result Comment: dipak [...] By: #### P T #### [facility] [address] [place] [address] PT Coag (PPP) [Time] 45.7 s High 9.0-12.0 [facility] Comment on above: Result Comment: . Performed By: #### P T #### [facility] [address] [place] [address] Echo 2D Doppler Coloron 08-0 TRANSTHORACIC ECHOCARDIOGRAM PATIENT: Alta Baker STUDY DATE: 10/13/2021 : 1950 AGE: 71 HT/WT: 149.9 cm (59 119.3 kg in) (262.4 lb) GENDER: F BP: 130 / 82 LOCATION: [facility] PATIENT Outpatient [facility] STATUS: *ORDERING PHYSICIAN: * Benita Moon *READING PHYSICIAN: * Miranda Morris, *MARKETING INSTRUCTOR: * MD Shayna Rice INDICATIONS: Eval mitral [...] F BP: 130 / 82 LOCATION: [facility] PATIENT Outpatient [facility] STATUS: *ORDERING PHYSICIAN: * Benita Moon *READING PHYSICIAN: * Miranda Morris, *MARKETING INSTRUCTOR: * MD Shayna Rice INDICATIONS: Eval mitral [...] m/sec --------- Mi (more content not included)... [employer] Work Phone: Echo 2D Doppler ColorOrdered By: Miranda Morris on 10-13-2021 [employer] Work Phone: Echo Complete w/wo Contrasto n 10-13-2021 Echo Complete w/wo Contrast Patient Name: ALTA BAKER Ultrasound ACCESSION EXAM DATE/TIME PROCEDURE ORDERING PROVIDER [id number] 10/13/2021 15:56 EDT Echo Complete w/wo [id number] -BENITA MOON Contrast Reason For Exam (Echo Complete w/wo Contrast) evaluate mitral stenosis if any? wanting to switch to [facility] ((2017 mild mitral stenosis) Report TRANSTHORACIC ECHOCARDIOGRAM PATIENT: Alta Baker STUDY DATE: 10/13/2021 [facility]#: [id number] : 1950 AGE: 71 HT/WT: 149.9 cm (59 119.3 kg in) (262.4 lb) GENDER: F BP: 130 / 82 LOCATION: [facility] Outpatient [facility] STATUS: *ORDERING PHYSICIAN: * Benita Moon *READING PHYSICIAN: * Miranda Morris, *MARKETING INSTRUCTOR: * MD Shayna Rice INDICATIONS: Eval mitral [...] LVOT Imer (more content not included)... Normal [facility] Digoxinon 09-29-2021 Digoxin [Mass/Vol] 0.94 ng/mL Normal 0.80-2.00 [facility] Comment on above: Performed By: #### L SHELL2, JALIL3, HERNÁN HAMMOND #### [facility] [address] [place] [address] Digoxin Levelon 09-29-2021 Digoxin Lvl 0.94 ng/mL 0.8 - 2 ng/mL [facility] Test Performed by [facility], [address] LAB [facility] Prothrombin Timeon 2 INR 2.5 High 0.9-1.1 [facility] Comment on above: Result Comment: Hong [...] #### L IPD2, CMP3, HERNÁN HAMMOND #### [facility] [address] [place] [address] PT Coag (PPP) [Time] 25.7 s High 9.0-12.0 [facility] Comment on above: Result Comment: . Performed By: #### L IPD2, CMP3, HEMDF, MDIFF #### [facility] [address] [place] [address] Protime-INRon 09-29-2021 INR Coag (Bld) [Relative time] 2.5 {INR} High [facility] Comment on above: Recommended Anticoag ulant Therapy: [...] and review of laboratory results Abnormal [facility] PT Coag (PPP) [Time] 25.7 s High 9 - 12 s [facility] Comment on above: . Test Performed by [facility], [address] , [place], [place] [id number] [place] [address] LAB [facility] LUNA DIGITAL DIAGNOSTIC W OR WO CAD RIGHTon 07-24-2021 Patient Name: ALTA MOYA Mammography ACCESSION EXAM DATE/TIME PROCEDURE ORDERING PROVIDER [id number] 07/24/2021 13:40 EDT MG Mammogram Digital LAURA YANG Diagnostic Right CPT code 75297 Reason For Exam (MG Mammogram Digital Diagnostic [...] images: BB's = Nipples; skin lesions Open pyramid [place] = Palpable Line = Scar Report Dictated on ASSESSMENT: Post procedure mammogram for marker placement US BX BREAST 1ST LESION IMAGE RT: RIGHT BREAST - JULY 24, 2021 - PATHOLOGY RESULTS: PENDING 2D digital mammography imaging was performed and reviewed with CAD. --- Final --- Signed Date and Time: 07/24/2021 3:27 pm Signed by: MD VELÁZQUEZ LAUREN B [facility] Alize Velázquez MD - 07/24/2021 Patient Name: ALTA BAKER Mammography ACCESSION EXAM DATE/TIME PROCEDURE ORDERING PROVIDER [id number] 07/24/2021 13:40 EDT MG Mammogram Digital LAURA YANG Diagnostic Right CPT code 84856 Reason For Exam (MG Mammogram Digital Diagnostic [...] images: BB's = Nipples; skin lesions Open pyramid [place] = Palpable Line = Scar Report Dictated [...] Digital Diagnostic Right [id number] ACCESSION EXAM DATE/TIME PROCEDURE ORDERING PROVIDER [id number] 07/24/2021 13:40 EDT MG Mammogram Digital LAURA YANG Diagnostic Right CPT code 53985 Reason For Exam (MG Mammogram Digital Diagnostic [...] images: BB's = Nipples; skin lesions Open pyramid [place] = Palpable Line = Scar Report Dictated [...] 14:38 EDT by MD VELÁZQUEZ LAUREN B [facility] Surgical Pathologyon 022 Surgical Pathology [id number] [facility] PATHOLOGY AND LABORATORY MEDICINE [address] [place] [address] Fax - FINAL SURGICAL PATHOLOGY REPORT NAME: ALTA BAKER : 1950 71 Y F BILLING NO.: [id number] LOCATION: [facility] PROCEDURE 07/24/2021 DATE: SURGEON: LAURA YANG [...] characteristics determined by the clinical laboratories of [facility]. They have not been cleared by [...] negativity on decalcified specimens. Case reviewed at [place] [address] [place] [address]. DEPARTMENT OF PATHOLOGY AND LABORATORY MEDICINE [place], [place] [address] [email or web address] Normal [facility] US BX Breast 1st Lesion Imag e RTon 07-24-2021 US BX Breast 1st Lesion Image RT Patient Name: ALTA BAKER Ultrasound ACCESSION EXAM DATE/TIME PROCEDURE ORDERING PROVIDER [id number] 07/24/2021 14:00 EDT US BX Breast 1st Lesion LAURA YANG Image RT CPT code 22614 A4648 Reason For Exam (US BX Breast [...] images: BB's = Nipples; skin lesions Open pyramid [place] = Palpable Line = Scar Report Dictated [...] 14:38 EDT by MD VELÁZQUEZ LAUREN B [facility] US GUIDED RIGHT BREAST BIOPS Yon 07-24-2021 Patient [facility]: [id number] Ultrasound ACCESSION EXAM DATE/TIME PROCEDURE ORDERING PROVIDER [id number] 07/24/2021 14:00 EDT US BX Breast 1st Lesion LAURA YANG Image RT CPT code 02223 A4648 Reason For Exam (US BX Breast [...] images: BB's = Nipples; skin lesions [place] = Palpable Line = Scar Report Dictated [...] Ultrasound ACCESSION EXAM DATE/TIME PROCEDURE ORDERING PROVIDER [id number] 07/24/2021 14:00 EDT US BX Breast 1st Lesion LAURA YANG Image RT CPT code 44746 A4648 Reason For Exam (US BX Breast [...] images: BB's = Nipples; skin lesions Open [place] = Palpable Line = Scar Report Dictated on ASSESSMENT: Post procedure mammogram for marker placement US BX BREAST 1ST LESION IMAGE RT: RIGHT BREAST - JULY 24, 2021 - PATHOLOGY RESULTS: PENDING 2D digital mammography imaging was performed and reviewed with CAD. --- Final --- Signed Date and Time: 07/24/2021 3:27 pm Signed by: MD VELÁZQUEZ LAUREN B [employer] Work Phone: Radiology Study observation (narrative) [employer] Work Phone: US GUIDED RIGHT BREAST BIOPS YOrdered By: Alize Velázquez on 07-24-2021 [employer] Work Phone: [facility] ERNST DIGITAL DIAGNOSTIC BILATERALon 07-02-2021 Patient Name: ALTA MOYA Mammography ACCESSION EXAM DATE/TIME PROCEDURE ORDERING PROVIDER [id number] 07/02/2021 10:26 EDT MG Breast Tomosynthesis DO IBARRA EUGENE F. BI CPT code 06971 90255 Reason For Exam (MG Breast Tomosynthesis BI) [...] bilateral MG breast tomosynthesis bl performed at [facility]. December 07, 2018, right breast MG breast tomosynthesis right performed at [facility]. December 07, 2018, right breast US breast limited right performed at [facility]. November 23, 2018, bilateral MG breast tomosynthesis bl scr performed at [facility]. TISSUE DENSITY: BIRADS B - There [...] images: BB's = Nipples; skin lesions Open [place] = Palpable Line = Scar 2D digital [...] 11:57 am Signed by: DO TELLEZ RACHEL [facility] Gay Aranda DO - 07/02/2021 Patient Name: ALTA BAKER Mammography ACCESSION EXAM DATE/TIME PROCEDURE ORDERING PROVIDER [id number] 07/02/2021 10:26 EDT MG Breast Tomosynthesis DO IBARRA EUGENE F. BI CPT code 84422 10465 Reason For Exam (MG Breast Tomosynthesis BI) [...] bilateral MG breast tomosynthesis bl performed at [facility]. December 07, 2018, right breast MG breast tomosynthesis right performed at [facility]. December 07, 2018, right breast US breast limited right performed at [facility]. November 23, 2018, bilateral MG breast tomosynthesis bl scr performed at [facility]. TISSUE DENSITY: BIRADS B - There [...] images: BB's = Nipples; skin lesions Open [place] = Palpable Line = Scar 2D digital [...] 11:57 am Signed by: DO TELLEZ RACHEL [facility] Work Phone: Radiology Study observation (narrative) [facility] Work Phone: LUNA ERNST DIGITAL DIAGNOSTIC BILATERALOrdered By: Gay Tellez on 07-02-2021 [facility] Work Phone: MG Breast Tomosynthesis Diag nostic BIon 07-02-2021 MG Breast Tomosynthesis Diagnostic BI Patient Name: ALTA BAKER Mammography ACCESSION EXAM DATE/TIME PROCEDURE ORDERING PROVIDER [id number] 07/02/2021 10:26 EDT MG Breast Tomosynthesis DO IBARRA EUGENE F. BI CPT code 81785 [id number] Reason For Exam (MG Breast Tomosynthesis BI) [...] bilateral MG breast tomosynthesis bl performed at [facility]. December 07, 2018, right breast MG breast tomosynthesis right performed at [facility]. December 07, 2018, right breast US breast limited right performed at [facility]. November 23, 2018, bilateral MG breast tomosynthesis bl scr performed at [facility]. TISSUE DENSITY: BIRADS B - There [...] images: BB's = Nipples; skin lesions Open pyramid lake = Palpable Line = Scar 2D digital [...] 11:57 am Signed by: DO TELLEZ RACHEL [facility] MG Cancer Risk Surveyon 04-2 MG Cancer Risk Survey Patient Name: ALTA COHEN Mammography ACCESSION EXAM DATE/TIME PROCEDURE ORDERING PROVIDER [id number] 07/02/2021 10:26 EDT MG Cancer Risk Survey [...] on Workstation: [id number] Final Dictating Physician: [employer] Signed Date and Time: 09/01/2021 2:37 pm Signed by: Contributor_system, POWERSCRIBE_V2 [facility] US Breast Limited Righton US Breast Limited Right Patient Name: ALTA BAKER Ultrasound ACCESSION EXAM DATE/TIME PROCEDURE ORDERING PROVIDER [id number] 07/02/2021 11:48 EDT US Breast Limited Right DO IBARRA EUGENE ChayitoYoly CPT code 15362 Reason For Exam (US Breast Limited Right) R92.8 ABNORMAL MAMMOGRAM Report This report was read in conjunction with Breast Ernst Bl Final Signed Date and Time: 08/27/2021 3:18 pm Signed by: TEXTILE MACHINE MAINTENANCE MECHANIC, SYSTEM Transcribed Date and Time: 08/27/2021 1:49 Transcribed By:OPHELIA [facility] Prothrombin Timeon 2 INR 3.0 High 0.9-1.1 [facility] Comment on above: Result Comment: Hong [...] By: #### L JALIL ESPARZA3MANISH MDIFF #### [facility] [address] [place] [address] PT Coag (PPP) [Time] 30.5 s High 9.0-12.0 [facility] Comment on above: Result Comment: . Performed By: #### L SHELL2MILES HEMDF, MDIFF #### [facility] [address] [place] [address] CBC Auto DifferentialOrdered By: Kory Ibarra on 12-30-2020 Hematocrit (Bld) [Volume fraction] 39.3 % 35.0 - 47.0 % [facility] Work Phone: Hemoglobin.gastrointes tinal spec 1 Ql (Stl) 13.1 g/dL 11.7 - 16.0 g/dL [employer] Work Phone: [phone] MCH (RBC) [Entitic mass] 27.8 pg 26.0 - 34.0 pg [employer] Work Phone: [phone] MCHC (RBC) [Mass/Vol] 33.3 % 32.0 - 36.0 % [employer] Work Phone: [phone] MCV (RBC) [Entitic vol] 83.5 fL 79.0 - 98.0 fL [employer] Work Phone: [phone] Platelet distribution width (Bld) [Ratio] 15.4 % High 11.5 - 14.5 % [employer] Work Phone: [phone] Platelet mean volume (Bld) [Entitic vol] 9.7 fL 7.4 - 10.4 fL [employer] Phone: [phone] Platelets (Bld) [#/Vol] 136 10*3/uL Low 140 - 440 10*3/uL [employer] Work Phone: [phone] RBC (Bld) [#/Vol] 4.71 10*6/uL 3.80 - 5.2 0 10*6/uL [employer] Work Phone: [phone] WBC (Bld) [#/Vol] 10.7 10*3/uL 3.6 - 10.7 10*3/uL [employer] Work Phone: [phone] Comp Metabolic Panelon 12-30 ALP [Catalytic activity/Vol] 79 U/L Normal 38-126 [facility] Comment on above: Performed By: #### L IPD2, CMP3, HEMDF, MDIFF #### [facility] [address] [place] [address] ALT [Catalytic activity/Vol] 33 U/L Normal 0-34 [facility] Comment on above: Result Comment: The ALT test is performed by an updated assay method. Please note that the reference intervals have been changed and are now sex specific. Performed By: #### L IPD2, CMP3, HEMDF, MDIFF #### [facility] [address] [place] [address] AST [Catalytic activity/Vol] 38 U/L Normal 15-46 [facility] Comment on above: Performed By: #### L MILES ESPARZA HEMDF, MDIFF #### [facility] [address] [place] [address] Calcium [Mass/Vol] 9.8 mg/dL Normal 8.4-10.4 [facility] Comment on above: Performed By: #### L SHELL2MILES HEMDF, MDIFF #### [facility] [address] [place] [address] Glucose [Mass/Vol] 133 mg/dL High 70-100 [facility] Comment on above: Performed By: #### L MILES ESPARZA HEMDF, MDIFF #### [facility] [address] [place] [address] Urea nitrogen [Mass/Vol] 13 mg/dL Normal 9-20 [facility] Comment on above: Performed By: #### L MILES ESPARZA HEMDF, MDIFF #### [facility] [address] [place] [address] Anion gap [Moles/Vol] 5 mmol/L Normal 3-13 [facility] Comment on above: Performed By: #### L MILES ESPARZA HEMDF, MDIFF #### [facility] [address] [place] [address] Bilirubin [Mass/Vol] 0.9 mg/dL Normal 0.2-1.3 [facility] Comment on above: Performed By: #### L SHELL2MILES HEMDF, MDIFF #### [facility] [address] [place] [address] CO2 [Moles/Vol] 32 mmol/L High 22-30 [facility] Comment on above: Performed By: #### L MILES ESPARZA HEMDF, MDIFF #### [facility] [address] [place] [address] Creatinine [Mass/Vol] 0.87 mg/dL Normal 0.52-1.25 [facility] Comment on above: Performed By: #### L SHELL2MILES HEMDF, MDIFF #### [facility] [address] [place] [address] GFR/1.73 sq M.predicted among blacks MDRD (S/P/Bld) [Vol rate/Area] 78.4 mL/min/{1.73_m2} Normal >60 [facility] Comment on above: Performed By: #### L SHELL2MILES HEMDF, MDIFF #### [facility] [address] [place] [address] GFR/1.73 sq M.predicted among non-blacks MDRD (S/P/Bld) [Vol rate/Area] 67.6 mL/min/{1.73_m2} Normal >60 [facility] Comment on above: Result Comment: KDIG [...] By: #### L SHELL2MILES HEMDF, MDIFF #### [facility] [address] [place] [address] Protein [Mass/Vol] 7.4 g/dL Normal 6.3-8.2 [facility] Comment on above: Performed By: #### L MILES ESAPRZA HEMDF, MDIFF #### [facility] [address] [place] [address] Potassium [Moles/Vol] 4.4 mmol/L Normal 3.5-5.1 [facility] Comment on above: Performed By: #### L MILES ESPARZA HEMDF, MDIFF #### [facility] [address] [place] [address] Sodium [Moles/Vol] 140 mmol/L Normal 135-145 [facility] Comment on above: Performed By: #### L IPD2, CMP3, MD MANISHIFF #### [facility] [address] [place] [address] Albumin [Mass/Vol] 4.2 g/dL Normal 3.5-5.0 [facility] Comment on above: Performed By: #### L IPD2, CMP3, MD MANISHIFF #### [facility] [address] [place] [address] Chloride [Moles/Vol] 103 mmol/L Normal 98-107 [facility] Comment on above: Performed By: #### L IPD2, CMP3, MD MANISHIFF #### [facility] [address] [place] [address] Comprehensive Metabolic Pane lOrdered By: Kory Ibarra on 12-30-2020 Albumin [Mass/Vol] 4.2 g/dL 3.5 - 5.0 g/dL [facility] Work Phone: [phone] ALP (Bld) [Catalytic activity/Vol] 79 U/L 38 - 126 U/L [facility] Work Phone: [phone] ALT [Catalytic activity/Vol] 33 U/L 0 - 34 U/L [facility] Work Phone: [phone] Comment on above: The ALT test is perf ormed by an updated assay method. Please note that the reference intervals have been changed and are now sex specific. Anion gap [Moles/Vol] 5 mmol/L 3 - 13 mmol/L [facility] Work Phone: [phone] AST [Catalytic activity/Vol] 38 U/L 15 - 46 U/L [facility] Work Phone: [phone] Bilirubin [Mass/Vol] 0.9 mg/dL 0.2 - 1 .3 mg/dL [facility] Work Phone: [phone] Calcium [Mass/Vol] 9.8 mg/dL 8.4 - 10. 4 mg/dL [facility] Work Phone: [phone] Chloride [Moles/Vol] 103 mmol/L 98 - 10 7 mmol/L [facility] Work Phone: [phone] CO2 [Moles/Vol] 32 mmol/L High 22 - 30 mmol/L [facility] Work Phone: [phone] Creatinine [Mass/Vol] 0.87 mg/dL 0.52 - 1.25 mg/dL [facility] Work Phone: [phone] EGFR IF NonAfrican Russian 67.6 mL/min >60 [facility] Work Phone: [phone] [...] fraction] 7.4 g/dL 6.3 - 8.2 g/dL [facility] Work Phone: [phone] GFR/1.73 sq M.predicted among blacks MDRD (S/P/Bld) [Vol rate/Area] 78.4 mL/min/{1.73_m2} >60 [facility] Work Phone: [phone] Glucose [Mass/Vol] 133 mg/dL High 70 - 100 mg/dL [facility] Work Phone: [phone] Potassium [Moles/Vol] 4.4 mmol/L 3.5 - 5.1 mmol/L [facility] Work Phone: [phone] Sodium [Moles/Vol] 140 mmol/L 135 - 145 mmol/L [facility] Work Phone: [phone] Urea nitrogen (BldV) [Mass/Vol] 13 mg/dL 9 - 20 mg/dL [facility] Work Phone: Hemogram w/ Autodiffon 12-30 Erythrocyte distribution width (RBC) [Ratio] 15.4 % High 11.5-14.5 [facility] Comment on above: Performed By: #### L IPD2, CMP3, MD MANISHIFF #### [facility] [address] [place] [address] Hematocrit (Bld) [Volume fraction] 39.3 % Normal 35.0-47.0 [facility] Comment on above: Performed By: #### L IPD2, CMP3MANISH MDIFF #### [facility] [address] [place] [address] Hemoglobin (Bld) [Mass/Vol] 13.1 g/dL Normal 11.7-16.0 [facility] Comment on above: Performed By: #### L IPD2, CMP3MANISH MDIFF #### [facility] [address] [place] [address] MCH (RBC) [Entitic mass] 27.8 pg Normal 26.0-34.0 [facility] Comment on above: Performed By: #### L IPD2, CMP3MANISH MDIFF #### [facility] [address] [place] [address] MCHC 33.3 % Normal 32.0-36.0 [facility] Comment on above: Performed By: #### L IPD2, CMP3, MD MANISHIFF #### [facility] [address] [place] [address] MCV (RBC) [Entitic vol] 83.5 fL Normal 79.0-98.0 [facility] Comment on above: Performed By: #### L IPD2, CMP3, HEMMD GWENIFF #### [facility] [address] [place] [address] Platelet mean volume (Bld) [Entitic vol] 9.7 fL Normal 7.4-10.4 [facility] Comment on above: Performed By: #### L IPD2, CMP3, HEMDF, MDIFF #### [facility] [address] [place] [address] Platelets (Bld) [#/Vol] 136 10*3/uL Low 140-440 [facility] Comment on above: Performed By: #### L IPD2, CMP3, HEMMD GWENIFF #### [facility] [address] [place] [address] RBC (Bld) [#/Vol] 4.71 10*6/uL Normal 3.80-5.20 [facility] Comment on above: Performed By: #### L IPD2, CMP3, MD MANISHIFF #### [facility] [address] [place] [address] WBC (Bld) [#/Vol] 10.7 10*3/uL Normal 3.6-10.7 [facility] Comment on above: Performed By: #### L IPD2, CMP3, MD MANISHIFF #### [facility] [address] [place] [address] Lipid Panelon 12-30-2020 Chol/HDL 4 Normal [facility] Comment on above: Result Comment: Ref Range: < 3 Low Risk for CHD 3-6 Mod Risk for CHD > 6 High Risk for CHD Performed By: #### L IPD2, CMP3, HERNÁN HAMMOND #### [facility] [address] [place] [address] Cholesterol in HDL [Mass/Vol] 31 mg/dL Low 40-60 [facility] Comment on above: Performed By: #### L IPD2, CMP3, HERNÁN HAMMOND #### [facility] [address] [place] [address] Low Density Lipoprotein 63 mg/dL Normal <100 [facility] Comment on above: Performed By: #### L IPD2, CMP3, MD MANISHIFF #### [facility] [address] [place] [address] Triglyceride [Mass/Vol] 167 mg/dL Abnormal <150 [facility] Comment on above: Performed By: #### L IPD2, CMP3, HEMMD GWENIFF #### [facility] [address] [place] [address] Cholesterol [Mass/Vol] 127 mg/dL Normal < 200 [facility] Comment on above: Performed By: #### L IPD2, CMP3, MD MANISHIFF #### [facility] [address] [place] [address] Lipid PanelOrdered By: Herbert Ibarra on 12-30-2020 Cholesterol [Mass/Vol] 127 mg/dL <200 S[facility] Work Phone: Cholesterol in HDL [Mass/Vol] 31 mg/dL Low 40 - 60 mg/dL [facility] Work Phone: Cholesterol in LDL [Mass/Vol] 63 mg/dL <100 [facility] Work Phone: Cholesterol.total/Chol esterol in HDL [Mass ratio] 4 {ratio} [facility] Work Phone: Comment on above: Ref Range: < 3 Low Risk for CHD 3-6 Mod Risk for CHD > 6 High Risk for CHD Triglyceride [Mass/Vol] 167 mg/dL Abnormal <150 [facility] Work Phone: Manual Diffon 12-30-2020 Abs Baso Cnt 0.0 10*3/uL Normal 0.0-0.2 [facility] Comment on above: Performed By: #### L IPD2, CMP3, MD MANISHIFF #### [facility] [address] [place] [address] Abs Eosin Cnt 0.0 10*3/uL Normal 0.0-0.5 [facility] Comment on above: Performed By: #### L IPD2, CMP3, MD MANISHIFF #### [facility] [address] [place] [address] Abs Lymph Cnt 2.0 10*3/uL Normal 1.1-4.5 [facility] Comment on above: Performed By: #### L IPD2, CMP3, MD MANISHIFF #### [facility] [address] [place] [address] Abs Monocyte Cnt 1.3 10*3/uL High 0.2-1.1 [facility] Comment on above: Performed By: #### L IPD2, CMP3, HEMDF, MDIFF #### [facility] [address] [place] [address] Abs Neutrophile Cnt 7.4 10*3/uL Normal 2.2-8.2 [facility] Comment on above: Performed By: #### L IPD2, CMP3, HEMDF, MDIFF #### [facility] [address] [place] [address] Bands 2 % Normal 0-3 [facility] Comment on above: Performed By: #### L IPD2, CMP3, HEMDF, MDIFF #### [facility] [address] [place] [address] Basophils 0 % Normal 0-2 [facility] Comment on above: Performed By: #### L IPD2, CMP3, HEMDF, MDIFF #### [facility] [address] [place] [address] Cells counted 100 Normal [facility] Comment on above: Performed By: #### L IPD2, CMP3, HEMDF, MDIFF #### [facility] [address] [place] [address] Eosinophils 0 % Low 1-6 [facility] Comment on above: Performed By: #### L IPD2, CMP3, HEMDF, MDIFF #### [facility] [address] [place] [address] Lymphocytes 19 % Low 20-40 [facility] Comment on above: Performed By: #### L IPD2, CMP3, HEMDF, MDIFF #### [facility] [address] [place] [address] Monocytes 12 % High 2-10 [facility] Comment on above: Performed By: #### L IPD2, CMP3, HEMDF, MDIFF #### [facility] [address] [place] [address] RBC Morphology Normal Normal [facility] Comment on above: Performed By: #### L IPD2, CMP3, HEMDF, MDIFF #### [facility] [address] [place] [address] Seg Neutrophils 67 % Normal 40-80 [facility] Comment on above: Performed By: #### L IPD2, CMP3, HEMDF, MDIFF #### [facility] [employer] [facility] [address] [place] [address] Manual DifferentialOrdered B y: Kory Fred on 12-30-2020 Absolute Baso # 0.0 10*3/uL 0.0 - 0.2 10*3/uL [facility] Work Phone: [phone] Absolute Eos # 0.0 10*3/uL 0.0 - 0.5 10*3/uL [facility] Work Phone: [phone] Absolute Lymph # 2.0 10*3/uL 1.1 - 4.5 10*3/uL [facility] Work Phone: [phone] Absolute [place] # 1.3 10*3/uL High 0.2 - 1.1 [...] Interpretation and review of laboratory results Abnormal [employer] Work Phone: [phone] Test Performed by [facility], [address] , [place], [place] [address] [place] [address] Work Phone: [phone] [facility] Work Phone: Interpretation and review of laboratory results Abnormal [facility] Work Phone: Test Performed by [facility], [address] , [place], [place] [address] Work Phone: [phone] [facility] Work Phone: [phone] Prothrombin Timeon INR 2.8 High 0.9-1.1 [facility] Comment on above: Result Comment: Hong [...] Infarction Performed By: #### P T #### [facility] [address] [address] PT Coag (PPP) [Time] 28.2 s High 9.0-12.0 [facility] Comment on above: Result Comment: . Performed By: #### P T #### [facility] [address] [address] Protime-INROrdered By: Ronel Ly on 12-30-2020 INR Coag (Bld) [Relative time] 2.8 {INR} High [facility] Work Phone: Comment on above: Recommended Anticoag [...] and review of laboratory results Abnormal [facility] Work Phone: PT Coag (PPP) [Time] 28.2 s High 9.0 - 12.0 s [facility] Work Phone: Comment on above: . Test Performed by [facility], [address] [place], [place] [address] [place] [address] Work Phone: [facility] Work Phone: Prothrombin Timeon INR 3.3 High 0.9-1.1 [facility] Comment on above: Result Comment: Hong [...] Infarction Performed By: #### P T #### [facility] [address] [place] [address] PT Coag (PPP) [Time] 33.0 s High 9.0-12.0 [facility] Comment on above: Result Comment: . Performed By: #### P T #### [facility] [address] [place] [address] Protime-INROrdered By: Ronel Ly on 12-17-2020 INR Coag (Bld) [Relative time] 3.3 {INR} High [facility] Work Phone: Comment on above: Recommended Anticoag [...] and review of laboratory results Abnormal [facility] Work Phone: [phone] PT Coag (PPP) [Time] 33 s High 9.0 - 12.0 s [facility] Work Phone: Comment on above: . Test Performed by [facility] [employer] [facility], [address] , [address] Work Phone: [facility] Work Phone: Protime-INROrdered By: Ronel Ly on 10-03-2020 INR Coag (Bld) [Relative time] 2.1 {INR} High [facility] Work Phone: Comment on above: Recommended Anticoag [...] and review of laboratory results Abnormal [facility] Work Phone: [phone] PT Coag (PPP) [Time] 21.6 s High 9.0 - 12.0 s [facility] Work Phone: Comment on above: . Test Performed by [facility] [employer], [address] , [place], [place] [address] Work Phone: [facility] Work Phone: Protime-INROrdered By: Ronel Ly on 09-24-2020 INR Coag (Bld) [Relative time] 1.6 {INR} High [facility] Work Phone: [phone] Comment on above: Recommended Anticoag ulant Therapy: [...] and review of laboratory results Abnormal [facility] Work Phone: [phone] PT Coag (PPP) [Time] 17 s High 9.0 - 12.0 s [facility] Work Phone: [phone] Comment on above: . Test Performed by [employer], [address] , [place], [place] [address] Work Phone: [facility] Work Phone: [phone] Protime-INROrdered By: Ronel Ly on 08-16-2020 INR Coag (Bld) [Relative time] 3.2 {INR} High [facility] Work Phone: [phone] Comment on above: Recommended Anticoag ulant Therapy: [...] and review of laboratory results Abnormal [facility] Work Phone: [phone] PT Coag (PPP) [Time] 31.6 s High 9.0 - 12.0 s [facility] Work Phone: [phone] Comment on above: . Test Performed by [employer], [address] , [place], [place] [address] [facility] Work Phone: [phone] [facility] Work Phone: [phone] Protime-INRon 05-23-2020 INR Coag (PPP) [Relative time] 3.0 {INR} High [facility] Work Phone: [phone] Comment on above: Recommended Anticoag ulant [...] Interpretation and review of laboratory results Abnormal [facility] Work Phone: PT Coag (PPP) [Time] 31 s High 9.0 - 12.0 s [employer] Work Phone: Comment on above: . Test Performed by [employer], [address] , [place], [place] [address] Work Phone: Protime-INRon 05-15-2020 INR Coag (PPP) [Relative time] 3.7 {INR} High [facility] Work Phone: Comment on above: [...] Interpretation and review of laboratory results Abnormal [facility] Work Phone: PT Coag (PPP) [Time] 37.2 s High 9 - 12 s [facility] Work Phone: Comment on above: . Test Performed by [employer], [address] , [place], [place] [address] [facility] Work Phone: Protime-INRon 04-29-2020 INR Coag (PPP) [Relative time] 1.9 {INR} High [facility] Work Phone: Comment on above: [...] Comment on above: . Test Performed by [facility], [address] , [place], [place] [address] [facility] Work Phone: Protime-INRon 04-11-2020 INR Coag (PPP) [Relative time] 3.2 {INR} [place], [place] Comment on above: Recommended Anticoag ulant [...] Interpretation and review of laboratory results Abnormal [place], [place] PT Coag (PPP) [Time] 32.4 s High 9 - 12 s [place], [place] Comment on above: . Test Performed by [facility], [address] , [address] Protime-INRon 04-02-2020 INR Coag (PPP) [Relative time] 2.2 {INR} [place] Comment on above: Recommended Anticoag ulant [...] Interpretation and review of laboratory results Abnormal [place] PT Coag (PPP) [Time] 23.1 s High 9 - 12 s [place] Comment on above: . Test Performed by [facility], [address] , [address] Protime-INRon 03-28-2020 INR Coag (PPP) [Relative time] 5.7 {INR} Critically high [place], [place] Comment on above: verified by repeat [...] Interpretation and review of laboratory results Abnormal [place] PT Coag (PPP) [Time] 56 s High 9 - 12 s [place] Comment on above: . Test Performed by [facility], [address] , [address] Protime-INRon 03-18-2020 INR Coag (PPP) [Relative time] 2.3 {INR} [place] Comment on above: Recommended Anticoag ulant [...] Interpretation and review of laboratory results Abnormal [place] PT Coag (PPP) [Time] 23.8 s High 9 - 12 s [place] Comment on above: . Test Performed by [facility], [address] , [address] Protime-INRon 03-12-2020 INR Coag (PPP) [Relative time] 5.1 {INR} Critically high [place] Comment on above: Checked and verified [...] Interpretation and review of laboratory results Abnormal [place] PT Coag (PPP) [Time] 50.8 s High 9 - 12 s [place] Comment on above: . Test Performed by [facility] [employer] [facility], [address] , [address] Protime-INRon 02-20-2020 INR Coag (PPP) [Relative time] 3.1 {INR} [place] Comment on above: Recommended Anticoag ulant [...] Interpretation and review of laboratory results Abnormal [place] PT Coag (PPP) [Time] 31.4 s High 9 - 12 s [place], [place] Comment on above: . Test Performed by [employer] [facility], [address] , [address] Hematologyon 02-01-2020 INR Coag (PPP) [Relative time] 2.1 {INR} [place] Comment on above: Recommended Anticoag ulant [...] 21.5 s High 9 - 12 s [place], [place] Comment on above: . Otheron 02-01-2020 Interpretation and review of laboratory results Abnormal [place] Test Performed by [facility], [address] , [address] Protime-INRon 01-25-2020 INR Coag (PPP) [Relative time] 1.1 {INR} [place], [place] Comment on above: Recommended Anticoag ulant [...] [Time] 11.6 s 9 - 12 s [place], [place] Comment on above: . Test Performed by [facility], [address] , [address] LUNA ERNST DIGITAL DIAGNOSTIC BILATERALon 11-27-2019 Patient Name: ALTA MOYA ---Mammography--- Exam Date/Time 11/27/2019 08:56:22 EDT Exam Breast Tomosynthesis BI Ordering Physician DO IBARRA EUGENE F. Accession Number [id number] CPT4 Codes 31168 (MG Breast Tomosynthesis BI), 38371 (MG MAMMO 2D DIAG BILAT) Reason For [...] images: BB's = Nipples; skin lesions Open pyramid [place] = Palpable Line = Scar 2D digital mammography and tomosynthesis imaging were performed and reviewed with CAD. ASSESSMENT: Category 3 Probably benign RECOMMENDATION: Follow-up diagnostic mammogram of both breasts in 1 year. . Report Dictated on --- Final --- Signed Date and Time: 11/27/2019 9:30 am Signed by: MD AZUCENA, [facility], [place], [facility] Results From [facility] - 11/27/2019 3:29 PM EDT Patient Name: ALTA BAKER ---Mammography--- Exam Date/Time 11/27/2019 08:56:22 EDT Exam Breast Tomosynthesis BI Ordering Physician DO IBARRA EUGENE F. Accession Number [id number] CPT4 Codes 17462 (MG Breast Tomosynthesis BI), 57718 (MG MAMMO 2D DIAG BILAT) Reason For [...] images: BB's = Nipples; skin lesions [place] pyramid [place] = Palpable Line = Scar 2D digital mammography and tomosynthesis imaging were performed and reviewed with CAD. ASSESSMENT: Category 3 Probably benign RECOMMENDATION: Follow-up diagnostic mammogram of both breasts in 1 year. . Report Dictated on --- Final --- Signed Date and Time: 11/27/2019 9:30 am Signed by: MD WHITTAKER TOM A [place] Protime-INRon 09-21-2019 INR Coag (PPP) [Relative time] 2.6 {INR} [place] Comment on above: Recommended Anticoag ulant [...] Interpretation and review of laboratory results Abnormal [place] PT Coag (PPP) [Time] 26.8 s [place] 9 - 12 s [place] Comment on above: . Test Performed by [facility], [address] , [place] [id number] [place] [address] Protime-INRon 07-04-2019 INR Coag (PPP) [Relative time] 2.8 {INR} [place] Comment on above: Test Performed by [facility], [address] , [place] [address] Recommended Anticoagulant Therapy: SEE BELOW ----- INR [...] Interpretation and review of laboratory results Abnormal [place] PT Coag (PPP) [Time] 28.7 s [place] 9 - 12 s [place] Comment on above: . Test Performed by [facility], [address] , [address] CBC Auto Differentialon 03-0 Absolute Baso # 0.1 10*3/uL 0 - 0.2 10*3/uL [place] Absolute Neut # 6.1 10*3/uL 1.8 - 7 10*3/uL [place] Basophils/100 WBC (Bld) 0.6 % 0 - 2 % [place] Eosinophils (Bld) [#/Vol] 0.1 10*3/uL 0 - 0.5 10*3/uL [place] Eosinophils/100 WBC (Bld) 1.2 % 1 - 6 % [place] Erythrocyte distribution width (RBC) [Ratio] 14.9 % High 11.5 - 14.5 % [place] Granulocytes/100 WBC (Bld) 61.4 % 40 - 80 % [place] Hematocrit (Bld) [Volume fraction] 39.4 % 35 - 47 % [place] Hemoglobin (Bld) [Mass/Vol] 13.3 g/dL 11.7 - 16 g/dL [place] Interpretation and review of laboratory results Abnormal [place] Lymphocytes (Bld) [#/Vol] 2.0 10*3/uL 1 - 4.3 10*3/uL [place] Lymphocytes/100 WBC (Bld) 20.1 % 20 - 40 % [place] MCH (RBC) [Entitic mass] 27.9 pg 26 - 34 pg [place] MCHC (RBC) [Mass/Vol] 33.7 % 32 - 36 % [place] MCV (RBC) [Entitic vol] 82.7 fL 79 - 98 fL [place] Monocytes (Bld) [#/Vol] 1.6 10*3/uL [place] 0 - 0.8 10*3/uL [place] Monocytes/100 WBC (Bld) 16.7 % High 2 - 10 % [place] Platelet mean volume (Bld) [Entitic vol] 9.8 fL 7.4 - 10.4 fL [place] Platelets (Bld) [#/Vol] 180 10*3/uL 140 - 440 10*3/uL [place] RBC (Bld) [#/Vol] 4.76 10*6/uL 3.8 - 5.2 10*6/uL [place] WBC (Bld) [#/Vol] 9.9 10*3/uL 3.6 - 10.7 10*3/uL [place] Test Performed by [facility], [facility] [address] , [place], [place] [id number] [place] [address] Comprehensive Metabolic Pane amaury 05-19-2019 Albumin [Mass/Vol] 4.3 g/dL 3.5 - 5 g/dL [place] ALP [Catalytic activity/Vol] 72 U/L 38 - 126 U/L [place] ALT [Catalytic activity/Vol] 43 U/L 13 - 69 U/L [place] Anion gap [Moles/Vol] 9 mmol/L [place] AST [Catalytic activity/Vol] 24 U/L 15 - 46 U/L [place] Bilirubin Ql (U) 0.6 mg/dL 0.2 - 1.3 mg/dL [place] Calcium [Mass/Vol] 9.5 mg/dL 8.4 - 10. 4 mg/dL [place] Chloride [Moles/Vol] 99 mmol/L 98 - 10 7 mmol/L [place] CO2 [Moles/Vol] 31 mmol/L High 22 - 30 mmol/L [place] Creatinine [Mass/Vol] 0.83 mg/dL 0.52 - 1.25 mg/dL [place] EGFR IF NonAfrican Russian >60.0 >60 mL/min [place] Comment on above: Source- MDRD equatio n with creatinine calibration to IDMS(NKDEP) eGFR not recommended for drug dose adjustment GFR/1.73 sq M predicted among blacks MDRD (S/P/Bld) [Vol rate/Area] mL/min/{1.73_m2} >60 mL/min [place] Glucose [Mass/Vol] 110 mg/dL High 70 - 100 mg/dL [place] Potassium [Moles/Vol] 4.2 mmol/L 3.5 - 5.1 mmol/L [place] Protein [Mass/Vol] 7.2 g/dL 6.3 - 8.2 g/dL [place] Sodium [Moles/Vol] 139 mmol/L 135 - 145 mmol/L [place] Urea nitrogen [Mass/Vol] 15 mg/dL 7 - 20 mg/dL [place] Lipid Panelon 05-19-2019 Cholesterol [Mass/Vol] 131 mg/dL <200 [place] Cholesterol in HDL [Mass/Vol] 34 mg/dL Low 40 - 60 mg/dL [place] Cholesterol in LDL [Mass/Vol] 66 mg/dL <100 [place] Cholesterol.total/Chol esterol in HDL [Mass ratio] 4 {ratio} [place] Comment on above: Ref Range: < 3 Low Risk for CHD 3-6 Mod Risk for CHD > 6 High Risk for CHD Triglyceride [Mass/Vol] 154 mg/dL Abnormal <150 [place] Otheron 05-19-2019 Interpretation and review of laboratory results Abnormal [place] Test Performed by [facility], [facility] [address] , [facility] Protime-INRon 05-19-2019 INR Coag (PPP) [Relative time] 2.4 {INR} [place] Comment on above: Recommended Anticoag ulant [...] Interpretation and review of laboratory results Abnormal [place] PT Coag (PPP) [Time] 23.8 s High 9 - 12 s [place] Comment on above: . Test Performed by [facility], [address] , [address] TSH without Reflexon 020 Interpretation and review of laboratory results Abnormal [place] TSH Qn 5.160 u[IU]/mL High 0.465 - 4.68 u[IU]/mL [place] Test Performed by [facility], [address] , [address] Pro[facility]-INRon 04-25-2019 INR Coag (PPP) [Relative [...] Comment on above: . Test Performed by [facility], [address] , [place], [place] [address] [employer] Work Phone: Protime-INROrdered By: Ronel Ly on [...] 24.4 s High 9 - 12 s [facility] A Work Phone: Comment on above: . Test Performed by [facility], [address] , [place], [place] [address] [employer] Work Phone: [facility]-INRon 02-06-2019 INR Coag (PPP) [Relative time] 2.3 {INR} [place] Comment on above: Recommended Anticoag ulant [...] Interpretation and review of laboratory results Abnormal [place] PT Coag (PPP) [Time] 23.4 s High 9 - 12 s [place] Comment on above: . Test Performed by [facility], [address] , [address] Protime-INRon 02-03-2019 INR Coag (PPP) [Relative time] 3.6 {INR} [place] Comment on above: Recommended Anticoag ulant [...] Interpretation and review of laboratory results Abnormal [place] PT Coag (PPP) [Time] 35.6 s High 9 - 12 s [place] Comment on above: . Test Performed by [facility], [address] , [address] Protime-INRon 01-06-2019 INR Coag (PPP) [Relative time] 1.9 {INR} [place] Comment on above: Recommended Anticoag ulant [...] Interpretation and review of laboratory results Abnormal [place] PT Coag (PPP) [Time] 19.3 s High 9 - 12 s [place] Comment on above: . Test Performed by [facility], [address] , [address] Protime-INRon 10-25-2018 INR Coag (PPP) [Relative time] 2.4 {INR} [place] Comment on above: Recommended Anticoag ulant [...] Interpretation and review of laboratory results Abnormal [place] PT Coag (PPP) [Time] 24.8 s High 9 - 12 s [place] Comment on above: . Test Performed by [facility], [facility] [address] , [address] No Panel Information Respiratory Panel (PCR) RSV A [facility] Work Phone: Respiratory Panel (PCR) RSV B [facility] Work Phone: SARS-CoV-2 & FLU Antigen (Rapid) [facility] Work Phone: Streptococcus pneumoniae Antigen (M [facility] Work Phone: Vital Signs Date Time Vital Sign Value Performing Clinician Facility 01-10-2025 14:37-0400 Body height 152.4 cm [facility] Work Phone: [place] 01-10-2025 14:37-0400 Body mass index (BMI) [Ratio] 42.89 kg/m2 [employer] Work Phone: [facility] 01-10-2025 14:37-0400 Body temperature 97.81 [degF] [facility] Work Phone: [facility] 01-10-2025 14:37-0400 Body weight 99.61 kg [employer] Work Phone: [facility] 01-10-2025 14:37-0400 Diastolic blood pressure 78 mm[Hg] [employer] Work Phone: [facility] 01-10-2025 14:37-0400 Heart rate 98 /min [employer] Work Phone: [place] 01-10-2025 14:37-0400 Systolic blood pressure 138 mm[Hg] Marion Siobhan DO Work Phone: [facility] 12-20-2024 10:30-0400 Diastolic blood pressure 52 mm[Hg] Marion Siobhan DO Work Phone: [facility] 12-20-2024 10:30-0400 Heart rate 96 /min Marion Siobhan DO Work Phone: [facility] 12-20-2024 10:30-0400 Respiratory rate 14 /min Marion Siobhan DO Work Phone: [facility] 12-20-2024 10:30-0400 SaO2% (BldA) [Mass fraction] 96 % Marion Siobhan DO Work Phone: [facility] 12-20-2024 10:30-0400 Systolic blood pressure 112 mm[Hg] Marion Siobhan DO Work Phone: [facility] 12-20-2024 09:35-0400 Body temperature 97.3 [degF] Marion Siobhan DO Work Phone: [facility] 12-20-2024 06:52-0400 Body height 149.9 cm Marion Siobhan DO Work Phone: [facility] 12-20-2024 06:52-0400 Body mass index (BMI) [Ratio] 42.82 kg/m2 Marion Siobhan DO Work Phone: [facility] 12-20-2024 06:52-0400 Body weight 96.16 kg Marion Siobhan DO Work Phone: [facility] 12-06-2024 14:26-0400 Diastolic blood pressure 80 mm[Hg] Josselyn Moneypenny PA-C Work Phone: [facility] 12-06-2024 14:26-0400 Systolic blood pressure 160 mm[Hg] Josselyn Moneypenny PA-C Work Phone: [facility] 12-06-2024 13:57-0400 Body height 149.9 cm Josselyn Moneypenny PA-C Work Phone: [facility] 12-06-2024 13:57-0400 Body mass index (BMI) [Ratio] 42.86 kg/m2 Josselyn Moneypenny PA-C Work Phone: [facility] 12-06-2024 13:57-0400 Body weight 96.25 kg Josselyn Moneypenny PA-C Work Phone: [facility] 12-06-2024 13:57-0400 Heart rate 88 /min Josselyn Moneypenny PA-C Work Phone: [facility] 12-06-2024 13:57-0400 SaO2% (BldA) [Mass fraction] 93 % Josselyn Moneypenny PA-C Work Phone: [facility] 12-04-2024 14:07-0400 Body height 149.9 cm Benita Moon MD Work Phone: [facility] 12-04-2024 14:07-0400 Body mass index (BMI) [Ratio] 42.41 kg/m2 Benita Moon MD Work Phone: [facility] 12-04-2024 14:07-0400 Body weight 95.25 kg Benita Moon MD Work Phone: [facility] 11-21-2024 09:13-0400 Body height 149.9 cm Marion Siobhan DO Work Phone: [facility] 11-21-2024 09:13-0400 Body mass index (BMI) [Ratio] 42.44 kg/m2 Marion Siobhan DO Work Phone: [facility] 11-21-2024 09:13-0400 Body temperature 98.01 [degF] Marion Siobhan DO Work Phone: [facility] 11-21-2024 09:13-0400 Body weight 95.3 kg Marion Siobhan DO Work Phone: [facility] 11-21-2024 09:13-0400 Diastolic blood pressure 76 mm[Hg] Marion Siobhan DO Work Phone: [facility] 11-21-2024 09:13-0400 Heart rate 88 /min Marion Siobhan DO Work Phone: [facility] 11-21-2024 09:13-0400 SaO2% (BldA) [Mass fraction] 100 % Marion Siobhan DO Work Phone: [facility] 11-21-2024 09:13-0400 Systolic blood pressure 130 mm[Hg] Marion Siobhan DO Work Phone: [facility] 11-09-2024 14:12-0400 Diastolic blood pressure 63 mm[Hg] Marion Siobhan DO Work Phone: [facility] 11-09-2024 14:12-0400 Systolic blood pressure 140 mm[Hg] Marion Siobhan DO Work Phone: [facility] 11-09-2024 14:05-0400 Body height 149.9 cm Marion Siobhan DO Work Phone: [facility] 11-09-2024 14:05-0400 Body mass index (BMI) [Ratio] 42.8 kg/m2 Marion Siobhan DO Work Phone: [facility] 11-09-2024 14:05-0400 Body temperature 97.9 [degF] Marion Siobhna DO Work Phone: [facility] 11-09-2024 14:05-0400 Body weight 96.12 kg Marion Siobhan DO Work Phone: [facility] 11-09-2024 14:05-0400 Heart rate 91 /min Marion Siobhan DO Work Phone: [facility] 11-09-2024 14:05-0400 SaO2% (BldA) [Mass fraction] 98 % Marion Siobhan DO Work Phone: [facility] 09-28-2024 14:42-0400 Body height 149.9 cm Kory Ibarra DO Work Phone: [facility] 09-28-2024 14:42-0400 Body mass index (BMI) [Ratio] 44.03 kg/m2 Kory Ibarra DO Work Phone: [facility] 09-28-2024 14:42-0400 Body weight 98.88 kg Kory bIarra DO Work Phone: [facility] 08-28-2024 16:01-0400 Inhaled oxygen flow rate 2 L/min Dr. Davis Irene DO Work Phone: [facility] 08-28-2024 14:00-0400 Body temperature 98.9 [degF] Dr. Davis Irene DO Work Phone: [facility] 08-28-2024 14:00-0400 Diastolic blood pressure 50 mm[Hg] Dr. Davis Irene DO Work Phone: [facility] 08-28-2024 14:00-0400 Heart rate 90 /min Dr. Davis Irene DO Work Phone: [facility] 08-28-2024 14:00-0400 Respiratory rate 16 /min Dr. Davis Irene DO Work Phone: [facility] 08-28-2024 14:00-0400 SaO2% (BldA) [Mass fraction] 94 % Dr. Davis Irene DO Work Phone: [facility] 08-28-2024 14:00-0400 Systolic blood pressure 106 mm[Hg] Dr. Davis Irene DO Work Phone: [facility] 08-28-2024 08:57-0400 Body height 149.[address] Davis Irene DO Work Phone: [facility] 08-28-2024 08:57-0400 Body weight 94.[address] Davis Irene DO Work Phone: [facility] 08-28-2024 04:54-0400 Body mass index (BMI) [Ratio] 42.2 kg/m2 Dr. Davis Irene DO Work Phone: [facility] 08-26-2024 05:50-0400 Inhaled oxygen concentration 25 % Dr. Davis Irene DO Work Phone: [facility] 08-25-2024 00:00-0400 Diastolic blood pressure 75 mm[Hg] Dr. Davis Irene DO Work Phone: [facility] 08-25-2024 00:00-0400 Heart rate 115 /min Dr. Davis Irene DO Work Phone: [facility] 08-25-2024 00:00-0400 Inhaled oxygen flow rate 2 L/min Dr. Davis Irene DO Work Phone: [facility] 08-25-2024 00:00-0400 Respiratory rate 23 /min Dr. Davis Irene DO Work Phone: [facility] 08-25-2024 00:00-0400 SaO2% (BldA) [Mass fraction] 96 % Dr. Davis Irene DO Work Phone: [facility] 08-25-2024 00:00-0400 Systolic blood pressure 125 mm[Hg] Dr. Davis Irene DO Work Phone: [facility] 08-24-2024 23:49-0400 Body temperature 98.6 [degF] Dr. Davis Irene DO Work Phone: [facility] 08-24-2024 18:34-0400 Body height 149.[address] Davis Irene DO Work Phone: [facility] 08-24-2024 18:34-0400 Body mass index (BMI) [Ratio] 43.5 kg/m2 Dr. Davis Irene DO Work Phone: [facility] 08-24-2024 18:34-0400 Body weight 97.[address] Davis Irene DO Work Phone: [facility] 08-15-2024 10:00-0400 Body height 149.9 cm Kory Ibarra DO Work Phone: [facility] 08-15-2024 10:00-0400 Body mass index (BMI) [Ratio] 44.43 kg/m2 Kory Ibarra DO Work Phone: [facility] 08-15-2024 10:00-0400 Body temperature 97.9 [degF] Kory Ibarra DO Work Phone: [facility] 08-15-2024 10:00-0400 Body weight 99.79 kg Kory Ibarra DO Work Phone: [facility] 08-15-2024 10:00-0400 Diastolic blood pressure 75 mm[Hg] Kory Ibarra DO Work Phone: [facility] 08-15-2024 10:00-0400 Heart rate 74 /min Kory Ibarra DO Work Phone: [facility] 08-15-2024 10:00-0400 SaO2% (BldA) [Mass fraction] 99 % Kory Ibarra DO Work Phone: [facility] 08-15-2024 10:00-0400 Systolic blood pressure 123 mm[Hg] Kory Ibarra DO Work Phone: [facility] 08-09-2024 14:26-0400 Body temperature 96.91 [degF] Miranda Marion APRN.FINAL ASSEMBLY INSPECTOR Work Phone: [facility] 08-09-2024 14:26-0400 Body weight 100.1 kg Miranda Marion APRN.FINAL ASSEMBLY INSPECTOR Work Phone: [facility] 08-09-2024 14:26-0400 Diastolic blood pressure 72 mm[Hg] Miranda Marion APRN.FINAL ASSEMBLY INSPECTOR Work Phone: [facility] 08-09-2024 14:26-0400 Heart rate 100 /min Miranda Marion 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 Work Phone: [facility] 08-09-2024 14:26-0400 Respiratory rate 20 /min Miranda Marion 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 Work Phone: [facility] 08-09-2024 14:26-0400 SaO2% (BldA) [Mass fraction] 92 % Miranda Marion 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 Work Phone: [facility] 08-09-2024 14:26-0400 Systolic blood pressure 122 mm[Hg] Miranda Marion [employer] 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 Work Phone: [facility] 07-31-2024 12:08-0400 Diastolic blood pressure 64 mm[Hg] Benita Moon MD Work Phone: [facility] 07-31-2024 12:08-0400 Systolic blood pressure 136 mm[Hg] Benita Moon MD Work Phone: [facility] 07-31-2024 11:34-0400 Body height 149.9 cm Benita Moon MD Work Phone: [facility] 07-31-2024 11:34-0400 Body mass index (BMI) [Ratio] 43.71 kg/m2 Benita Moon MD Work Phone: [facility] 07-31-2024 11:34-0400 Body weight 98.16 kg Benita Moon MD Work Phone: [facility] 07-31-2024 11:34-0400 Heart rate 98 /min Benita Moon MD Work Phone: [facility] 07-31-2024 11:34-0400 SaO2% (BldA) [Mass fraction] 94 % Benita Moon MD Work Phone: [facility] 06-19-2024 10:41-0400 Diastolic blood pressure 78 mm[Hg] Kory Ibarra DO Work Phone: [facility] 06-19-2024 10:41-0400 Heart rate 92 /min Kory Ibarra DO Work Phone: [facility] 06-19-2024 10:41-0400 Respiratory rate 16 /min Kory Ibarra DO Work Phone: [facility] 06-19-2024 10:41-0400 Systolic blood pressure 126 mm[Hg] Kory Ibarra DO Work Phone: [facility] 06-19-2024 10:06-0400 Body height 149.9 cm Kory Ibarra DO Work Phone: [facility] 06-19-2024 10:06-0400 Body mass index (BMI) [Ratio] 40.31 kg/m2 Kory Ibarra DO Work Phone: [facility] 06-19-2024 10:06-0400 Body temperature 97.59 [degF] Kory Ibarra DO Work Phone: [facility] 06-19-2024 10:06-0400 Body weight 90.54 kg Kory Ibarra DO Work Phone: [facility] 06-19-2024 10:06-0400 SaO2% (BldA) [Mass fraction] 96 % Kory Ibarra DO Work Phone: [facility] 06-05-2024 16:00-0400 Body temperature 97.9 [degF] Dr. Davis Irene DO Work Phone: [facility] 06-05-2024 16:00-0400 Diastolic blood pressure 65 mm[Hg] Dr. Davis Irene DO Work Phone: [facility] 06-05-2024 16:00-0400 Heart rate 85 /min Dr. Davis Irene DO Work Phone: [facility] 06-05-2024 16:00-0400 Respiratory rate 17 /min Dr. Davis Irene DO Work Phone: [facility] 06-05-2024 16:00-0400 SaO2% (BldA) [Mass fraction] 98 % Dr. Davis Irene DO Work Phone: [facility] 06-05-2024 16:00-0400 Systolic blood pressure 133 mm[Hg] Dr. Davis Irene DO Work Phone: [facility] 06-05-2024 14:00-0400 Inhaled oxygen flow rate 2 L/min Dr. Davis Irene DO Work Phone: [facility] 06-05-2024 00:00-0400 Inhaled oxygen concentration 30 % Dr. Davis Irene DO Work Phone: [facility] 06-03-2024 08:39-0400 Body height 149.[address] Davis Irene DO Work Phone: [facility] 06-03-2024 08:39-0400 Body weight 98.[address] Davis Irene DO Work Phone: [facility] 06-02-2024 15:35-0400 Body mass index (BMI) [Ratio] 43.7 kg/m2 Dr. Davis Irene DO Work Phone: [facility] 06-02-2024 14:13-0400 Body temperature 98.1 [degF] Dr. Davis Irene DO Work Phone: [facility] 06-02-2024 14:13-0400 Diastolic blood pressure 93 mm[Hg] Dr. Davis Irene DO Work Phone: [facility] 06-02-2024 14:13-0400 Heart rate 108 /min Dr. Davis Irene DO Work Phone: [facility] 06-02-2024 14:13-0400 Respiratory rate 24 /min Dr. Davis Irene DO Work Phone: [facility] 06-02-2024 14:13-0400 SaO2% (BldA) [Mass fraction] 97 % Dr. Davis Irene DO Work Phone: [facility] 06-02-2024 14:13-0400 Systolic blood pressure 148 mm[Hg] Dr. Davis Irene DO Work Phone: [facility] 06-02-2024 13:22-0400 Inhaled oxygen concentration 30 % Dr. Davis Irene DO Work Phone: [facility] 06-02-2024 10:33-0400 Body height 149.[address] Davis Irene DO Work Phone: [facility] 06-02-2024 10:33-0400 Body mass index (BMI) [Ratio] 45.4 kg/m2 Dr. Davis Irene DO Work Phone: [facility] 06-02-2024 10:33-0400 Body weight 102.[address] Davis Irene DO Work Phone: [facility] 05-31-2024 10:04-0400 Body height 149.9 cm Chelo Huitron [employer]NAGER - FINAL ASSEMBLY INSPECTOR Work Phone: [facility] 05-31-2024 10:04-0400 Body mass index (BMI) [Ratio] 44.64 kg/m2 Chelo Tobin [employer]NAGER - FINAL ASSEMBLY INSPECTOR Work Phone: [facility] 05-31-2024 10:04-0400 Body weight 100.25 kg Chelo Tobin [employer]NAGER - FINAL ASSEMBLY INSPECTOR Work Phone: [facility] 05-31-2024 10:04-0400 Diastolic blood pressure 74 mm[Hg] Chelo Huitron [employer]NAGER - FINAL ASSEMBLY INSPECTOR Work Phone: [facility] 05-31-2024 10:04-0400 Heart rate 96 /min Chelo Tobin [employer] MANAGER - FINAL ASSEMBLY INSPECTOR Work Phone: [facility] 05-31-2024 10:04-0400 Respiratory rate 15 /min Chelo Huitron [employer] MANAGER - FINAL ASSEMBLY INSPECTOR Work Phone: [facility] 05-31-2024 10:04-0400 Systolic blood pressure 122 mm[Hg] Chelo Huitron [employer]NAGER - FINAL ASSEMBLY INSPECTOR Work Phone: [facility] 05-25-2024 15:32-0400 Body mass index (BMI) [Ratio] 43.5 kg/m2 Dr. Davis Irene DO Work Phone: [facility] 05-25-2024 15:32-0400 Body temperature 98.2 [degF] Dr. Davis Irene DO Work Phone: [facility] 05-25-2024 15:32-0400 Body weight 97.[address] Davis Irene DO Work Phone: [facility] 05-25-2024 15:32-0400 Diastolic blood pressure 76 mm[Hg] Dr. Davis Irene DO Work Phone: [facility] 05-25-2024 15:32-0400 Heart rate 139 /min Dr. Davis Irene DO Work Phone: [facility] 05-25-2024 15:32-0400 SaO2% (BldA) [Mass fraction] 92 % Dr. Davis Irene DO Work Phone: [facility] 05-25-2024 15:32-0400 Systolic blood pressure 122 mm[Hg] Dr. Davis Irene DO Work Phone: [facility] 05-08-2024 17:00-0500 Heart rate 113 /min Oswaldo Carpenter DO Work Phone: [facility] 05-08-2024 17:00-0500 Respiratory rate 16 /min Oswaldo Carpenter DO Work Phone: [facility] 05-08-2024 17:00-0500 SaO2% (BldA) [Mass fraction] 90 % Oswaldo Carpenter DO Work Phone: [facility] 05-08-2024 11:41-0500 Diastolic blood pressure 44 mm[Hg] Oswaldo Carpenter DO Work Phone: [facility] 05-08-2024 11:41-0500 Systolic blood pressure 135 mm[Hg] Oswaldo Carpenter DO Work Phone: [facility] 05-08-2024 11:26-0500 Body height 149.9 cm Oswaldo Carpenter DO Work Phone: [facility] 05-08-2024 11:26-0500 Body mass index (BMI) [Ratio] 43.63 kg/m2 Oswaldo Carpenter DO Work Phone: [facility] 05-08-2024 11:26-0500 Body weight 97.98 kg Oswaldo Carpenter DO Work Phone: [facility] 05-08-2024 08:00-0500 Body temperature 97.81 [degF] Oswaldo Hoytel DO Work Phone: [facility] 05-02-2024 18:45-0500 SaO2% (BldA) [Mass fraction] 95.8 % Oswaldo Carpenter DO Work Phone: [facility] 04-27-2024 09:10-0500 Body height 149.9 cm Benita Moon MD Work Phone: [facility] 04-27-2024 09:10-0500 Body mass index (BMI) [Ratio] 40.23 kg/m2 Benita Moon MD Work Phone: [facility] 04-27-2024 09:10-0500 Body weight 90.36 kg Benita Moon MD Work Phone: [facility] 04-27-2024 09:10-0500 Diastolic blood pressure 70 mm[Hg] Benita Moon MD Work Phone: [facility] 04-27-2024 09:10-0500 Heart rate 60 /min Benita Moon MD Work Phone: [facility] 04-27-2024 09:10-0500 SaO2% (BldA) [Mass fraction] 95 % Benita Moon MD Work Phone: [facility] 04-27-2024 09:10-0500 Systolic blood pressure 130 mm[Hg] Benita Moon MD Work Phone: [facility] 04-03-2024 10:17-0500 Body height 152.4 cm Kory Ibarra DO Work Phone: [facility] 04-03-2024 10:17-0500 Body mass index (BMI) [Ratio] 41.01 kg/m2 Kory Ibarra DO Work Phone: [facility] 04-03-2024 10:17-0500 Body temperature 97.2 [degF] Kory Ibarra DO Work Phone: [facility] 04-03-2024 10:17-0500 Body weight 95.25 kg Kory Ibarra DO Work Phone: [facility] 04-03-2024 10:17-0500 Diastolic blood pressure 70 mm[Hg] Kory Ibarra DO Work Phone: [facility] 04-03-2024 10:17-0500 Heart rate 73 /min Kory Ibarra DO Work Phone: [facility] 04-03-2024 10:17-0500 SaO2% (BldA) [Mass fraction] 98 % Kory Ibarra DO Work Phone: [facility] 04-03-2024 10:17-0500 Systolic blood pressure 104 mm[Hg] Kory Ibarra DO Work Phone: [facility] 02-22-2024 07:59-0500 Body temperature 97 [degF] Brina Rocha DO Work Phone: [facility] 02-22-2024 07:59-0500 Diastolic blood pressure 69 mm[Hg] Brina Prettyy DO Work Phone: [facility] 02-22-2024 07:59-0500 Heart rate 96 /min Brina Smithffey DO Work Phone: [facility] 02-22-2024 07:59-0500 Respiratory rate 21 /min Brina Smithffey DO Work Phone: [facility] 02-22-2024 07:59-0500 SaO2% (BldA) [Mass fraction] 95 % Brina Prettyy DO Work Phone: [facility] 02-22-2024 07:59-0500 Systolic blood pressure 159 mm[Hg] rBina Rocha DO Work Phone: [facility] 02-21-2024 06:00-0500 Body mass index (BMI) [Ratio] 49.08 kg/m2 Brina Rocha DO Work Phone: [facility] 02-21-2024 06:00-0500 Body weight 114 kg Brina Rocha DO Work Phone: [facility] 02-17-2024 10:04-0500 Body height 152.4 cm Brina Rocha DO Work Phone: [facility] 02-14-2024 11:46-0500 Body height 152.4 cm Curt Last PA-C Work Phone: [facility] 02-14-2024 11:46-0500 Body temperature 97.2 [degF] Curt Last PA-C Work Phone: [facility] 02-14-2024 11:46-0500 Diastolic blood pressure 62 mm[Hg] Curt Last PA-C Work Phone: [facility] 02-14-2024 11:46-0500 Heart rate 74 /min Curt Lats PA-C Work Phone: [facility] 02-14-2024 11:46-0500 SaO2% (BldA) [Mass fraction] 90 % Curt Last PA-C Work Phone: [facility] 02-14-2024 11:46-0500 Systolic blood pressure 122 mm[Hg] Curt Last PA-C Work Phone: [facility] 02-11-2024 20:17-0500 Body height 152.4 cm Elias Nesheim DO Work Phone: [facility] 02-11-2024 20:17-0500 Body mass index (BMI) [Ratio] 48.82 kg/m2 Elias Nesheim DO Work Phone: [facility] 02-11-2024 20:17-0500 Body temperature 98.2 [degF] Elias Nesheim DO Work Phone: [facility] 02-11-2024 20:17-0500 Body weight 113.4 kg Elias Nesheim DO Work Phone: [facility] 02-11-2024 20:17-0500 Diastolic blood pressure 111 mm[Hg] Elias Nesheim DO Work Phone: [facility] 02-11-2024 20:17-0500 Heart rate 84 /min Elias Nesheim DO Work Phone: [facility] 02-11-2024 20:17-0500 Respiratory rate 18 /min Elias Nesheim DO Work Phone: [facility] 02-11-2024 20:17-0500 SaO2% (BldA) [Mass fraction] 94 % Elias Nesheim DO Work Phone: [facility] 02-11-2024 20:17-0500 Systolic blood pressure 163 mm[Hg] Elias Nesheim DO Work Phone: [facility] 02-04-2024 21:56-0500 Diastolic blood pressure 96 mm[Hg] Kellie Candido DO Work Phone: [facility] 02-04-2024 21:56-0500 Heart rate 102 /min Kellie Maldonado DO Work Phone: [facility] 02-04-2024 21:56-0500 Respiratory rate 20 /min Kellie Maldonado DO Work Phone: [facility] 02-04-2024 21:56-0500 SaO2% (BldA) [Mass fraction] 92 % Kellie Maldonado DO Work Phone: [facility] 02-04-2024 21:56-0500 Systolic blood pressure 157 mm[Hg] Kellie Candido DO Work Phone: [facility] 02-04-2024 20:34-0500 Body mass index (BMI) [Ratio] 50.49 kg/m2 Kellie Maldonado DO Work Phone: [facility] 02-04-2024 20:34-0500 Body temperature 98.1 [degF] Kellie Maldonado DO Work Phone: [facility] 02-04-2024 20:34-0500 Body weight 113.4 kg Kellie Maldonado DO Work Phone: [facility] 02-04-2024 19:20-0500 Body temperature 97.7 [degF] Pao Elias APRN.FINAL ASSEMBLY INSPECTOR Work Phone: [facility] 02-04-2024 19:20-0500 Body weight 116.6 kg Pao Elias APRN.FINAL ASSEMBLY INSPECTOR Work Phone: [facility] 02-04-2024 19:20-0500 Diastolic blood pressure 86 mm[Hg] Pao Elias APRN.FINAL ASSEMBLY INSPECTOR Work Phone: [facility] 02-04-2024 19:20-0500 Heart rate 88 /min Pao Elias APRN.FINAL ASSEMBLY INSPECTOR Work Phone: [facility] 02-04-2024 19:20-0500 Respiratory rate 24 /min Pao Elias APRN.FINAL ASSEMBLY INSPECTOR Work Phone: [facility] 02-04-2024 19:20-0500 SaO2% (BldA) [Mass fraction] 94 % Pao Elias APRN.FINAL ASSEMBLY INSPECTOR Work Phone: [facility] 02-04-2024 19:20-0500 Systolic blood pressure 178 mm[Hg] Pao Elias APRN.FINAL ASSEMBLY INSPECTOR Work Phone: [facility] 01-25-2024 10:25-0500 Diastolic blood pressure 80 mm[Hg] Chelo Huitron [employer] - FINAL ASSEMBLY INSPECTOR Work Phone: [facility] 01-25-2024 10:25-0500 Systolic blood pressure 148 mm[Hg] Chelo Huitron [employer] MANAGER - FINAL ASSEMBLY INSPECTOR Work Phone: [facility] 01-25-2024 10:05-0500 Body height 149.9 cm Chelo Huitron [employer] MANAGER - FINAL ASSEMBLY INSPECTOR Work Phone: [facility] 01-25-2024 10:05-0500 Body mass index (BMI) [Ratio] 51.58 kg/m2 Chelo Huitron APRN - FINAL ASSEMBLY INSPECTOR Work Phone: [facility] 01-25-2024 10:05-0500 Body weight 115.85 kg Chelo Huitron APRN - FINAL ASSEMBLY INSPECTOR Work Phone: [facility] 01-25-2024 10:05-0500 Heart rate 114 /min Chelo Huitron APRN - FINAL ASSEMBLY INSPECTOR Work Phone: [facility] 01-25-2024 10:05-0500 SaO2% (BldA) [Mass fraction] 93 % Chelo Huitron APRN - FINAL ASSEMBLY INSPECTOR Work Phone: [facility] 12-21-2023 10:01-0400 Body height 149.9 cm Kory Ibarra DO Work Phone: [facility] 12-21-2023 10:01-0400 Body mass index (BMI) [Ratio] 49.2 kg/m2 Kory Ibarra DO Work Phone: [facility] 12-21-2023 10:01-0400 Body temperature 97.5 [degF] Kory Ibarra DO Work Phone: [facility] 12-21-2023 10:01-0400 Body weight 110.5 kg Kory Ibarra DO Work Phone: [facility] 12-21-2023 10:01-0400 Diastolic blood pressure 87 mm[Hg] Kory Ibarra DO Work Phone: [facility] 12-21-2023 10:01-0400 Heart rate 93 /min Kory Ibarra DO Work Phone: [facility] 12-21-2023 10:01-0400 SaO2% (BldA) [Mass fraction] 97 % Kory Ibarra DO Work Phone: [facility] 12-21-2023 10:01-0400 Systolic blood pressure 137 mm[Hg] Kory Ibarra DO Work Phone: [facility] 08-11-2023 10:32-0400 Body height 149.9 cm Benita Moon MD Work Phone: [facility] 08-11-2023 10:32-0400 Body mass index (BMI) [Ratio] 50.09 kg/m2 Benita Moon MD Work Phone: [facility] 08-11-2023 10:32-0400 Body weight 112.49 kg Benita Moon MD Work Phone: [facility] 08-11-2023 10:32-0400 Diastolic blood pressure 60 mm[Hg] Benita Moon MD Work Phone: [facility] 08-11-2023 10:32-0400 Heart rate 72 /min Benita Moon MD Work Phone: [facility] 08-11-2023 10:32-0400 Respiratory rate 15 /min Benita Moon MD Work Phone: [facility] 08-11-2023 10:32-0400 Systolic blood pressure 136 mm[Hg] Benita Moon MD Work Phone: [facility] 03-25-2023 10:32-0500 Body height 149.9 cm Kory Ibarra DO Work Phone: [facility] 03-25-2023 10:32-0500 Body mass index (BMI) [Ratio] 49.89 kg/m2 Kory Ibarra DO Work Phone: [facility] 03-25-2023 10:32-0500 Body temperature 97.11 [degF] Kory Ibarra DO Work Phone: [facility] 03-25-2023 10:32-0500 Body weight 112.04 kg Kory Jimeneza DO Work Phone: [facility] 03-25-2023 10:32-0500 Diastolic blood pressure 60 mm[Hg] Kory Bellestanleya DO Work Phone: [facility] 03-25-2023 10:32-0500 Heart rate 76 /min Kory Bellestanleybessy DO Work Phone: [facility] 03-25-2023 10:32-0500 SaO2% (BldA) [Mass fraction] 96 % Kory Ibarra DO Work Phone: [facility] 03-25-2023 10:32-0500 Systolic blood pressure 137 mm[Hg] Kory Ibarra DO Work Phone: [facility] 02-02-2023 11:31-0500 Diastolic blood pressure 78 mm[Hg] Chelo Sabinaynick [employer] MANAGER - FINAL ASSEMBLY INSPECTOR Work Phone: [facility] 02-02-2023 11:31-0500 Systolic blood pressure 148 mm[Hg] Chelo Sabinaynick [employer] MANAGER - FINAL ASSEMBLY INSPECTOR Work Phone: [facility] 02-02-2023 11:08-0500 Body height 149.9 cm Chelo Sabinaynick [employer] MANAGER - FINAL ASSEMBLY INSPECTOR Work Phone: [facility] 02-02-2023 11:08-0500 Body mass index (BMI) [Ratio] 49.28 kg/m2 Chelo Sabinaynick [employer] MANAGER - FINAL ASSEMBLY INSPECTOR Work Phone: [facility] 02-02-2023 11:08-0500 Body weight 110.68 kg Chelo Kraynick [employer] MANAGER - FINAL ASSEMBLY INSPECTOR Work Phone: [facility] 02-02-2023 11:08-0500 Heart rate 65 /min Chelo Kraynick [employer] MANAGER - FINAL ASSEMBLY INSPECTOR Work Phone: [facility] 02-02-2023 11:08-0500 SaO2% (BldA) [Mass fraction] 94 % Chelo Sabinaynick [employer] MANAGER - FINAL ASSEMBLY INSPECTOR Work Phone: [facility] 12-29-2022 09:20-0400 Body temperature 99.39 [degF] Alannah Praisler-Wood [employer] 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 Work Phone: [facility] 12-29-2022 09:20-0400 Body weight 114.22 kg Alannah Praisler-Wood [employer] 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 Work Phone: [facility] 12-29-2022 09:20-0400 Diastolic blood pressure 82 mm[Hg] Alannah Praisler-Wood [employer] 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 Work Phone: [facility] 12-29-2022 09:20-0400 Heart rate 105 /min Alannah Praisler-Wood [employer] 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 Work Phone: [facility] 12-29-2022 09:20-0400 Respiratory rate 22 /min Alannah Praisler-Wood [employer] 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 Work Phone: [facility] 12-29-2022 09:20-0400 SaO2% (BldA) [Mass fraction] 94 % Alannah Praisler-Wood [employer] 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 Work Phone: [facility] 12-29-2022 09:20-0400 Systolic blood pressure 150 mm[Hg] Alannah Praisler-Wood [employer] 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 Work Phone: [facility] 09-22-2022 10:22-0400 Body height 149.9 cm Kory Ibarra DO Work Phone: [facility] 09-22-2022 10:22-0400 Body mass index (BMI) [Ratio] 50.7 kg/m2 Kory Jimeneza DO Work Phone: [facility] 09-22-2022 10:22-0400 Body temperature 96.91 [degF] Kory Jimeneza DO Work Phone: [facility] 09-22-2022 10:22-0400 Body weight 113.85 kg Kory Jimeneza DO Work Phone: [facility] 09-22-2022 10:22-0400 Diastolic blood pressure 71 mm[Hg] Kory Jimeneza DO Work Phone: [facility] 09-22-2022 10:22-0400 Heart rate 75 /min Kory Bellestanleya DO Work Phone: [facility] 09-22-2022 10:22-0400 SaO2% (BldA) [Mass fraction] 94 % Kory Bellestanleya DO Work Phone: [facility] 09-22-2022 10:22-0400 Systolic blood pressure 139 mm[Hg] Kory Bellestanleya DO Work Phone: [facility] 03-24-2022 11:16-0500 Diastolic blood pressure 68 mm[Hg] Kory Ibarra DO Work Phone: [facility] 03-24-2022 11:16-0500 Heart rate 72 /min Kory Ibarra DO Work Phone: [facility] 03-24-2022 11:16-0500 Systolic blood pressure 134 mm[Hg] Kory Ibarra DO Work Phone: [facility] 03-24-2022 10:39-0500 Body height 149.9 cm Kory Ibarra DO Work Phone: [facility] 03-24-2022 10:39-0500 Body mass index (BMI) [Ratio] 52.23 kg/m2 Kory Ibarra DO Work Phone: [facility] 03-24-2022 10:39-0500 Body temperature 97 [degF] Kory Ibarra DO Work Phone: [facility] 03-24-2022 10:39-0500 Body weight 117.3 kg Kory Ibarra DO Work Phone: [facility] 03-24-2022 10:39-0500 SaO2% (BldA) [Mass fraction] 95 % Kory Ibarra DO Work Phone: [facility] 01-22-2022 15:01-0500 Heart rate 98 /min Dr. Kory Ibarra Work Phone: [facility] Work Phone: 01-22-2022 15:01-0500 Respiratory rate 20 /min Dr. Kory Ibarra Work Phone: [facility] Work Phone: 01-22-2022 13:55-0500 Inhaled oxygen flow rate 2 L/min Dr. Kory Ibarra Work Phone: [facility] Work Phone: 01-22-2022 13:55-0500 SaO2% (BldA) [Mass fraction] 96 % Dr. Kory Ibarra Work Phone: [facility] Work Phone: 01-22-2022 13:16-0500 Body temperature 98.2 [degF] Dr. Kory Ibarra Work Phone: [facility] Work Phone: 01-22-2022 13:16-0500 Diastolic blood pressure 63 mm[Hg] Dr. Kory Ibarra Work Phone: [facility] Work Phone: 01-22-2022 13:16-0500 Systolic blood pressure 123 mm[Hg] Dr. Kory Ibarra Work Phone: [facility] Work Phone: 01-22-2022 06:00-0500 Body weight 116.[address] Kory Ibarra Work Phone: [facility] Work Phone: 01-19-2022 11:09-0500 Body height 149.[address] Kory Ibarra Work Phone: [facility] Work Phone: 01-19-2022 00:06-0500 Body mass index (BMI) [Ratio] 51.2 kg/m2 Dr. Kory Ibarra Work Phone: [facility] Work Phone: 01-18-2022 23:31-0500 Body temperature 97.9 [degF] [facility] Work Phone: 01-18-2022 23:31-0500 Diastolic blood pressure 64 mm[Hg] [facility] Work Phone: 01-18-2022 23:31-0500 Heart rate 114 /min [facility] Work Phone: 01-18-2022 23:31-0500 Inhaled oxygen flow rate 2 L/min [facility] Work Phone: 01-18-2022 23:31-0500 Respiratory rate 22 /min [facility] Work Phone: 01-18-2022 23:31-0500 SaO2% (BldA) [Mass fraction] 96 % [facility] Work Phone: 01-18-2022 23:31-0500 Systolic blood pressure 139 mm[Hg] [facility] Work Phone: 01-18-2022 21:17-0500 Body height 149.86 cm [facility] Work Phone: 01-18-2022 21:17-0500 Body mass index (BMI) [Ratio] 52.4 kg/m2 [facility] Work Phone: 01-18-2022 21:17-0500 Body weight 117.93 kg [facility] Work Phone: Encounters Encounter Date Encounter Type Care Provider Facility Start: 01-10-2025 End: 01-10-2025 Office outpatient visit 25 minutes Marion Mccann DO Work Phone: [facility] Comment on above: Leukocytosis, unspec ified type (Primary Dx); Thrombocytopenia; Anemia, unspecified type; 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) Start: 01-01-2025 End: 01-02-2025 Refill Josselyn Bhardwaj PA-C Work Phone: [facility] Comment on above: 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, 41-49%) (HCC) Start: 12-27-2024 End: 12-28-2024 Telephone encounter Kory Ibarra DO Work Phone: [facility] Comment on above: Orders (Cpap Machine ) Start: 12-20-2024 End: 12-20-2024 Subsequent hospital visit by physician Marion Mccann DO Work Phone: [facility] Comment on above: Thrombocytopenia; Leukocytosis, unspecified type; Anemia, unspecified type Start: 12-20-2024 End: 12-20-2024 ambulatory KORY [facility] Start: 12-19-2024 End: 12-19-2024 Follow-up encounter Josselyn Moneypenny PA-C Work Phone: [facility] Comment on above: Basic metabolic pane l Start: 12-19-2024 End: 12-19-2024 ambulatory KORY [facility] Start: 12-14-2024 End: 12-25-2024 Telephone encounter Kory Ibarra DO Work Phone: [facility] Comment on above: Orders (Oxygen) Start: 12-12-2024 End: 12-12-2024 Telephone encounter Bisi Kennedy RN [facility] Start: 12-11-2024 End: 12-12-2024 Telephone encounter Josselyn Moneypenny PA-C Work Phone: [facility] Comment on above: Results Start: 12-08-2024 End: 12-08-2024 Telephone encounter Josselyn Moneypenny PA-C Work Phone: [facility] [place] Start: 12-06-2024 End: 12-07-2024 Telephone encounter Josselyn Moneypenny PA-C Work Phone: [facility] Comment on above: Orders (Oxygent Requ est) Start: 12-06-2024 End: 12-06-2024 ambulatory JOSSELYN WILYNY [facility] Start: 12-06-2024 End: 12-06-2024 Office outpatient visit 40 minutes Josselyn Moneypenny PA-C Work Phone: [facility] Comment on above: Chronic heart failur [...] Start: 12-04-2024 End: 12-04-2024 ambulatory BENITA MOON [facility] Start: 11-27-2024 End: 11-27-2024 ambulatory KORY IBARRA [facility] Start: 11-23-2024 End: 11-24-2024 Telephone encounter Marion Mccann DO Work Phone: [facility] Comment on above: Labs Only Start: 11-21-2024 End: 11-21-2024 ambulatory MARION El JARVISEL [facility] Start: 11-21-2024 End: 11-21-2024 Office outpatient visit 25 minutes Marion Mccann DO Work Phone: [facility] Comment on above: Leukocytosis, unspec ified type (Primary Dx); Anemia, unspecified type; Thrombocytopenia (HCC); Adrenal mass, left (HCC); Pericardial effusion Start: 11-17-2024 End: 11-20-2024 Refill Kory Ibarra DO Work Phone: [facility] Start: 11-16-2024 End: 11-16-2024 Subsequent hospital visit by physician Marion Mccann DO Work Phone: [facility] Comment on above: Leukocytosis, unspec ified type; Anemia, unspecified type; Adrenal mass, left (HCC) Start: 11-16-2024 End: 11-16-2024 ambulatory MARION Gallegos SIOBHNA [facility] Start: 11-14-2024 End: 11-14-2024 Follow-up encounter Marion Mccann DO Work Phone: [facility] Comment on above: CBC auto differentia l, Comprehensive Metabolic Panel - [facility], Iron and TIBC, Additional followed-up results: 10 CBC auto differentia l, Comprehensive Metabolic Panel - [facility], Iron and TIBC, Additional followed-up results: 11 Start: 11-09-2024 End: 11-09-2024 Office outpatient new 60 minutes Marion Mccann DO Work Phone: [facility] [place] Comment on above: Leukocytosis, unspec ified type (Primary Dx); Anemia, unspecified type; Thrombocytopenia (HCC); Adrenal mass, left (HCC) Start: 11-09-2024 End: 11-09-2024 ambulatory Marion El Mccann DO Work Phone: [facility] Comment on above: Arrived Start: 11-06-2024 End: 11-09-2024 Telephone encounter Marion Mccann DO Work Phone: [facility] Comment on above: Appointment Request (R/S) Start: 10-20-2024 End: 10-24-2024 Telephone encounter Kory Ibarra DO Work Phone: [facility] Comment on above: Other (Home care upd ate/missed visit) Start: 10-10-2024 End: 10-18-2024 Telephone encounter Kory Ibarra DO Work Phone: [facility] Comment on above: Other (Potential vas cular peripheral disease) Start: 10-09-2024 End: 10-12-2024 Telephone encounter Benita Moon MD Work Phone: [facility] Scheduling Comment on above: Other ([facility]); Missed Appointment (Echocardiogram ) Start: 10-01-2024 End: 12-01-2024 Follow-up encounter Kory Ibarra DO Work Phone: [facility] Comment on above: Bilateral screening mammogram with tomosynthesis Start: 09-28-2024 End: 09-28-2024 Subsequent hospital visit by physician Kory Ibarra DO Work Phone: [facility] Comment on above: Encounter for screen ing mammogram for malignant neoplasm of breast Start: 09-28-2024 End: 09-28-2024 ambulatory KORY IBARRA [facility] Start: 09-22-2024 End: 09-22-2024 Refill Kory Ibarra DO Work [facility] Start: 09-21-2024 End: 09-22-2024 Telephone encounter Kory Ibarra DO Work Phone: [facility] Comment on above: Orders (Portable Oxy gen Machine) Start: 09-11-2024 End: 09-20-2024 Telephone encounter Kory Ibarra DO Work Phone: [facility] Comment on above: Appointment Request Start: 09-04-2024 End: 09-06-2024 Telephone encounter Kory Ibarra DO Work Phone: [facility] Comment on above: Other Start: 08-28-2024 End: 09-26-2024 Telephone encounter Ya Goel [facility] Comment on above: Appointment Request Start: 08-28-2024 Non-patient / Non-visit Dr. Bindu Ibarra MD [facility] Work Phone: Start: 08-27-2024 Non-patient / Non-visit Dr. Bindu Ibarra MD [facility] Work Phone: Start: 08-26-2024 Non-patient / Non-visit Dr. Bindu Ibarra MD [facility] Work Phone: Start: 08-25-2024 Non-patient / Non-visit Dr. John Paul mora [facility] Work Phone: Start: 08-24-2024 Non-patient / Non-visit Dr. Jemima Poe [facility] Work Phone: Start: 08-24-2024 ambulatory Jemima Poe Facility:[facility] Start: 08-24-2024 End: 08-28-2024 Evaluation and management of inpatient Dr. Jemima Poe DO [facility] Work Phone: Start: 08-23-2024 End: 08-24-2024 Telephone encounter Kory Ibarra DO Work Phone: [facility] Comment on above: Durable Medical Equi pment Start: 08-21-2024 End: 08-22-2024 Orders Only Kory Ibarra DO Work Phone: [facility] Start: 08-20-2024 End: 08-20-2024 Orders Only Kory Ibarra DO Work Phone: [facility] Comment on above: Iron deficiency anem ia, unspecified iron deficiency anemia type (Primary Dx); Thrombocytopenia (HCC) Start: 08-15-2024 End: 08-15-2024 Office outpatient visit 25 minutes Kory Ibarra DO Work Phone: [facility] Comment on above: Iron deficiency anem ia, [...] on CPAP Start: 08-15-2024 End: 08-15-2024 ambulatory [facility] Start: 08-13-2024 End: 08-27-2024 Follow-up encounter Kory Ibarra DO Work Phone: [facility] Comment on above: IgG, IgA, IgM, Immun ofixation Electrophoresis Start: 08-09-2024 End: 08-09-2024 Subsequent hospital visit by physician Tony [facility] María Elena Work Phone: Radiology Comment on above: Right elbow pain [M2 5.521] Start: 08-09-2024 End: 08-09-2024 ambulatory KORY IBARRA Facility:[facility] Start: 08-09-2024 End: 08-09-2024 Patient encounter procedure Miranda Marion 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 Work Phone: [facility] Comment on above: Skin erythema (Prima ry Dx); Right elbow pain Start: 08-08-2024 End: 11-07-2024 Follow-up encounter Chelo Huitron [employer]NA[employer] - FINAL ASSEMBLY INSPECTOR Work Phone: [facility] - Kedar Donnelly Comment on above: Basic metabolic pane l, CBC auto differential Encounter for screen ing mammogram for malignant neoplasm of breast (Primary Dx) Start: 08-05-2024 End: 11-04-2024 Transcribe Orders Kory Chayito rFed BECKER Work Phone: [facility] Comment on above: Abnormality of plasm a protein, unspecified (Primary Dx) Start: 08-02-2024 End: 08-14-2024 Refill Kory Ibarra DO Work Phone: [facility] Start: 08-01-2024 End: 08-01-2024 Telephone encounter Kory Chayito Fred BECKER Work Phone: [facility] Comment on above: Referral Start: 07-31-2024 End: 07-31-2024 amb[facility] Start: 07-31-2024 End: 07-31-2024 Office outpatient visit 40 minutes Benita Moon MD Work Phone[facility] Comment on above: Pulmonary HTN (HCC) (Primary Dx); Essential hypertension Start: 07-17-2024 End: 07-17-2024 Refill Kory Chayito Fred BECKER Work Phone: [facility] Start: 07-03-2024 End: 07-03-2024 Telephone encounter Kory Chayito Fred BECKER Work Phone: [facility] Comment on above: Referral ( Friend) Start: 07-02-2024 End: 07-02-2024 Orders Only [facility]barra DO [facility] Start: 06-30-2024 End: 06-30-2024 ambulatory [facility] Start: 06-23-2024 End: 06-23-2024 Orders Only Kory Ibarra DO Work Phone: [facility] Comment on above: Abnormal protein erasmo ctrophoresis (Primary Dx) Results (06.21.2024) Start: 06-21-2024 End: 06-21-2024 ambulatory [facility] Start: 06-19-2024 End: 06-19-2024 ambulatory [facility] Start: 06-19-2024 End: 06-19-2024 Office outpatient visit 25 minutes Kory Ibarra DO Work [facility]: [facility] Comment on above: Heart failure with i mproved ejection fraction (HFimpEF) ([facility]) (Primary Dx); Normochromic normocytic anemia; Morbidly obese ([facility]); Chronic obstructive pulmonary disease, unspecified COPD type ([facility]); Longstanding persistent atrial fibrillation ([facility]); Depression, unspecified depression type Start: 06-05-2024 Non-patient / Non-visit Dr. John Paul mora DO -[place] [facility] Work Phone: Start: 06-04-2024 Non-patient / [facility] Work [facility]: Start: 06-03-2024 Non-patient / Non-[facility]. [facility] Work [facility]: Start: 06-03-2024 ambulatory Jermaine Hagen Facility:[facility] Start: 06-03-2024 Non-patient / Non-visit Dr. Cady POLANCO [facility] Start: 06-02-2024 ambulatory Wilbert Umanzor Fac ility:[facility] Start: 06-02-2024 End: 06-05-2024 Evaluation and management of inpatient Dr. Wilbert Umanzor DO -Progressive Care Unit Work Phone: Start: 05-31-2024 End: 05-31-2024 ambulatory CHELO HUITRON [facility] Start: 05-31-2024 End: 05-31-2024 Office outpatient visit 25 minutes Chelo Huitron [employer]GER - FINAL ASSEMBLY INSPECTOR Work Phone: [facility] Leann Donnelly Comment on above: Permanent [...] Start: 05-25-2024 End: 05-25-2024 ambulatory Scott MURRY Facility:[facility] Start: 04-29-2024 End: 05-02-2024 Telephone encounter Niecy Sierra MD Work Phone: [facility] [place] Start: 04-27-2024 End: 05-08-2024 Evaluation and management of inpatient Oswaldo Carpenter DO Work Phone: [facility] Medical Intensive Care Unit MICU T3 Start: 04-27-2024 End: 07-27-2024 Transcribe Orders Kory Ibarra DO Work Phone: [facility] Comment on above: Disorder of adrenal gland, unspecified (HCC) (Primary Dx) Start: 04-27-2024 End: 04-27-2024 Office outpatient visit 40 minutes Benita Moon MD Work Phone: [facility] [place] Comment on above: Permanent atrial fib rillation (HCC) Start: 04-23-2024 End: 04-23-2024 Orders Only Kory Ibarra DO Work Phone: [facility] Leann Fox Comment on above: Venous insufficiency (Primary Dx) Start: 04-18-2024 End: 07-18-2024 Transcribe Orders Kory Ibarra DO Work Phone: [facility] Comment on above: Disorder of adrenal gland, unspecified (HCC) (Primary Dx); Permanent atrial fibrillation (HCC) Start: 04-13-2024 End: 04-14-2024 Telephone encounter Benita Moon MD Work Phone: [facility] [place] Comment on above: Other (Eliquis) Start: 04-05-2024 End: 04-14-2024 Orders Only Kory Ibarra DO Work Phone: [facility] Comment on above: Permanent atrial fib rillation (HCC) (Primary Dx) Cancelled Appointmen t Start: 04-04-2024 End: 04-04-2024 Telephone encounter Kory Ibarra DO Work Phone: [facility] Comment on above: Advice Only Start: 04-03-2024 End: 04-03-2024 ambulatory [facility] Start: 04-03-2024 End: 04-03-2024 Office outpatient visit 40 minutes Kory Ibarra DO Work Phone: [facility] Comment on above: Osteoporotic brenda tanya fracture [...] Telephone encounter Kory Ibarra DO Work Phone: [facility] [employer] Comment on above: Appointment ( 4 Pt Daughter calling to ask the office /Provider if her Mother could have a SOONER appt than 06.21.24 with Provider since being out of the Hospital she is asking for a call back to discuss) Start: 02-16-2024 End: 02-17-2024 Telephone encounter Brooklyn Baldwin [employer] MANAGER - FINAL ASSEMBLY INSPECTOR Work Phone: [facility] Start: 02-15-2024 End: 02-16-2024 Telephone encounter Jamie Jimenez MD Work Phone: [facility] Comment on above: Other (Hospital foll ow up , adrenal mass and microhematuria) Start: 02-14-2024 End: 02-22-2024 Evaluation and management of inpatient Brina Rocha DO Work Phone: [facility] Cardiac Progressive Care Unit PCU 2E Comment on above: Atypical back pain ( Primary Dx); Abdominal pain, unspecified abdominal location; Acute midline low back pain without sciatica; Pulmonary HTN (HCC); Acute respiratory failure, unspecified whether with hypoxia or hypercapnia (HCC); Morbidly obese (HCC) Start: 02-14-2024 End: 02-14-2024 Subsequent hospital visit by physician Curt Last PA-C Work Phone: [facility] CT Comment on above: Acute midline low ba ck pain without sciatica; Bandemia Shortness of breath Start: 02-14-2024 End: 02-14-2024 ambulatory [facility] Start: 02-14-2024 End: 02-14-2024 ambulatory [facility] Start: 02-14-2024 End: 02-14-2024 Office outpatient visit 40 minutes Curt Last PA-C Work Phone: [facility] [place] Comment on above: Acute midline low ba ck pain without sciatica (Primary Dx); Tinea cruris; Shortness of breath; Bandemia Start: 02-11-2024 End: 02-11-2024 Subsequent hospital visit by physician [facility] Exam Room [address] [facility] CT Comment on above: Arrived Start: 02-11-2024 End: 02-11-2024 Emergency department patient visit Elias Dawn DO Work Phone: [facility] ED Comment on above: Acute right-sided lo w back pain without sciatica (Primary Dx); Calculus of gallbladder without cholecystitis without obstruction; Left adrenal mass (HCC); Chronic congestive heart failure, unspecified heart failure type (HCC) Start: 02-09-2024 End: 02-09-2024 Orders Only Kory Stratton Barbrarajwinder DO Work Phone: [facility] Start: 02-04-2024 End: 02-04-2024 Subsequent hospital visit by physician [facility] [facility] Radiology Comment on above: Arrived Start: 02-04-2024 End: 02-04-2024 Emergency department patient visit Kellie Maldonado DO Work Phone: [facility] ED Comment on above: Acute right-sided lo w back pain without sciatica (Primary Dx) Start: 02-04-2024 End: 02-04-2024 ambulatory KORY IBARRA Facility:[facility] Start: 02-04-2024 End: 02-04-2024 Patient encounter procedure Pao Elias APRN.FINAL ASSEMBLY INSPECTOR Work Phone: [facility] Comment on above: Pain (Primary Dx) Start: 01-31-2024 End: 02-04-2024 ambulatory Melanie Aguiar RN [facility] Clinical Communication Start: 01-31-2024 End: 02-04-2024 Patient encounter procedure Melanie Aguiar RN [facility] Clinical Communication Start: 01-25-2024 End: 01-25-2024 Office outpatient visit 25 minutes Chelo Huitron APRN - FINAL ASSEMBLY INSPECTOR Work Phone: [facility] [place] Comment on above: Permanent atrial fib rillation (HCC) (Primary Dx); Anticoagulant long-term use; Encounter for long-term (current) use of high-risk medication; Pulmonary HTN (HCC); Chronic systolic (congestive) heart failure (HCC); Essential hypertension Start: 01-25-2024 End: 01-25-2024 [facility] Start: 12-21-2023 End: 12-21-2023 Telephone encounter Kory Stratton Tonybessy DO Work Phone: [facility] Comment on above: Referral ([facility] SPECIALIST) Start: 12-21-2023 End: 12-21-2023 Office outpatient visit 25 minutes Kory Ibarra DO Work Phone: [facility] Comment on above: Postmenopausal vagin al bleeding (Primary Dx); CHRISTIANNE on CPAP; History of pneumonia; Pulmonary emphysema, unspecified emphysema type (HCC); History of COVID-19; Anticoagulant long-term use; Permanent atrial fibrillation (HCC); Thrombocytopenia (HCC); Nasal bleeding Start: 12-16-2023 End: 12-16-2023 Subsequent hospital visit by physician Kory Ibarra DO Work Phone: [facility] Radiology Comment on above: Leukocytosis, unspec ified type Start: 12-15-2023 End: 12-15-2023 Orders Only Kory Ibarra DO Work Phone: [facility] Comment on above: Leukocytosis, unspec ified type (Primary Dx) Start: 12-13-2023 End: 04-22-2024 ambulatory Chinyere Link RN [facility] Clinical Communication Start: 12-13-2023 End: 04-22-2024 Patient encounter procedure Chinyere Link RN [facility] Clinical Communication Start: 12-13-2023 End: 12-13-2023 Telephone encounter Benita Moon MD Work Phone: [facility] Comment on above: Appointment Request (LEROY) Start: 12-01-2023 End: 12-09-2023 Patient encounter procedure Zaynab Caraballo RN [facility] Clinical Communication Start: 12-01-2023 End: 12-09-2023 ambulatory Zaynab Caraballo RN [facility] Clinical Communication Start: 12-01-2023 End: 12-03-2023 Evaluation and management of inpatient Luna Bustamante Facility:[facility] Start: 11-24-2023 End: 11-25-2023 Refill Kory Ibarra DO Work Phone: [facility] Comment on above: CHRISTIANNE on CPAP; RSV (respiratory syncytial virus infection) Start: 11-17-2023 End: 11-17-2023 Refill Kory Ibarra DO Work Phone: [facility] Start: 11-16-2023 End: 11-17-2023 Telephone encounter Kory Ibarra DO Work Phone: [facility] Comment on above: Labs Only Start: 11-14-2023 End: 11-16-2023 Refill Kory Jimeneza DO Work Phone: [facility] Start: 10-06-2023 End: 10-07-2023 Refill Kory Jimeneza DO Work Phone: [facility] Medicine Start: 10-04-2023 End: 10-04-2023 Telephone encounter Benita Moon MD Work Phone: [facility] Comment on above: Other (antibiotic) Start: 09-06-2023 End: 09-07-2023 Refill Kory Jimeneza DO Work Phone: [facility] Start: 08-19-2023 Refill Kory angela DO Work Phone: [facility] Medicine Start: 08-11-2023 End: 08-11-2023 Office outpatient visit 40 minutes Benita Moon MD Work Phone: [facility] Comment on above: Palpitations Start: 08-02-2023 End: 08-02-2023 Subsequent hospital visit by physician Kory Ibarra DO Work Phone: [facility] Comment on above: Breast cancer screen ing by mammogram Start: 05-28-2023 ambulatory Delaney Arceo RN [facility] Comment on above: KERRY BERRY RN ( Medication Adherence review per request of payer) Start: 05-26-2023 Refill Kerri Olivia [facility] Start: 05-11-2023 Refill Kory angela DO Work Phone: [facility] Medicine Start: 05-07-2023 Orders Only Kory Belle lla DO Work Phone: [facility] Start: 04-13-2023 Telephone encounter Jimbo Khalil MD Work Phone: [facility] Comment on above: Appointment Start: 04-09-2023 Refill Kory pearce DO Work Phone: [facility] Comment on above: CHRISTIANNE on CPAP; RSV (respiratory syncytial virus infection) Start: 03-25-2023 Telephone encounter Kory Thomson micheal DO Work Phone: [facility] Comment on above: Orders (Plastic Surg thong referral) Start: 03-25-2023 End: 03-25-2023 Office outpatient visit 25 minutes Kory Bellestanleybessy DO Work Phone: [facility] Comment on above: Essential hypertensi on (Primary Dx); Hypercholesteremia; Anticoagulant long-term use; Major depressive disorder, recurrent, mild (HCC); Permanent atrial fibrillation (HCC); Eyelid lesion, benign; Cough variant asthma; Breast cancer screening by mammogram Start: 03-17-2023 Refill Chelo quintero [employer] MANAGER - [employer] Work Phone: [facility] Start: 03-16-2023 Refill Chelo quintero [employer] MANAGER - FINAL ASSEMBLY INSPECTOR Work Phone: [facility] Start: 03-06-2023 Refill Kory pearce DO Work Phone: [facility] Comment on above: CHRISTIANNE on CPAP; RSV (respiratory syncytial virus infection) Start: 03-03-2023 Orders Only Kory pearce DO Work Phone: [facility] Start: 02-02-2023 End: 02-02-2023 Office outpatient visit 25 minutes Chelo Huitron [employer] MANAGER - [employer] Work Phone: [facility] Comment on above: Permanent atrial fib rillation (HCC) (Primary Dx); Anticoagulant long-term use; Encounter for long-term (current) use of high-risk medication; Pulmonary HTN (HCC); CHRISTIANNE on CPAP; 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) Start: 12-29-2022 End: 12-29-2022 Patient encounter procedure Alannah Reed [employer] 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 Work Phone: [facility] Comment on above: Bacterial sinusitis (Primary Dx) Start: 11-24-2022 Refill Benita Sotomayor Work Phone: [facility] Start: 09-22-2022 End: 09-22-2022 Assay of hemosiderin, quant Kory Stratton Fred DO Work Phone: [facility] Start: 09-22-2022 End: 09-22-2022 Patient encounter procedure Kory Stratton Tonybessy DO Work Phone: [facility] Comment on above: Encounter for [facility] annual wellness visit (AWV) in Medicare [...] Kory Chayito Barbra pearce DO Work Phone: [facility] Comment on above: CHRISTIANNE on CPAP; RSV (respiratory syncytial virus infection) Start: 07-22-2022 End: 07-22-2022 ambulatory Benita Moon MD Work Phone: [facility] Laboratory Comment on above: Arrived Longstanding persist ent atrial fibrillation (CMS/HCC) (HCC) (Primary Dx) Start: 06-16-2022 Refill Kory Stratton Barbra pearce DO Work Phone: [facility] Comment on above: CHRSITIANNE on CPAP; Cough variant asthma; RSV (respiratory syncytial virus infection) Start: 05-25-2022 Refill Chelo quintero [employer] MANAGER - FINAL ASSEMBLY INSPECTOR Work Phone: [facility] Start: 05-05-2022 Orders Only Kory Chayito Barbra pearce DO Work Phone: [facility] Start: 03-24-2022 End: 03-24-2022 Office outpatient visit 25 minutes Kory Ibarra DO Work Phone: [facility] Comment on above: Chronic pain of left knee (Primary Dx); CHRISTIANNE on CPAP; Cough variant asthma; Hyperglycemia; Essential hypertension; Longstanding persistent atrial fibrillation (CMS/HCC) (HCC); Hypercholesteremia Start: 01-22-2022 Non-patient / Non-visit Dr. Wesly Ibarra Work Phone: [facility] Start: 01-21-2022 Non-patient / Non-visit Dr. Wesly Ibarra Work Phone: [facility] Start: 01-20-2022 Non-patient / Non-visit Dr. Wesly Ibarra Work Phone: [facility] Start: 01-19-2022 Non-patient / Non-visit Dr. Wesly Ibarra Work Phone: [facility] Start: 01-18-2022 Non-patient / Non-visit Dr. Wesly Ibarra Work Phone: [facility] Start: 01-18-2022 End: 01-22-2022 Evaluation and management of inpatient [facility] Start: 12-01-2021 ambulatory [facility]winder [facility] Start: 12-01-2021 End: 12-01-2021 Subsequent hospital visit by physician Benita Moon MD Work Phone: [facility] Laboratory Comment on above: Permanent atrial fib rillation (HCC) Start: 11-07-2021 ambulatory K[facility]essy [facility] Start: 10-13-2021 End: 10-13-2021 Subsequent hospital visit by physician Benita Moon MD Work Phone: [facility] Comment on above: Chronic atrial fibri llation, unspecified (HCC); Nonrheumatic mitral (valve) insufficiency; Chronic atrial fibrillation (HCC); Nonrheumatic mitral valve regurgitation Start: 09-29-2021 ambulatory [facility] Start: 09-29-2021 End: 09-29-2021 Subsequent hospital visit by physician Gene Maldonado MD Work Phone: [facility] Laboratory Comment on above: Anticoagulant long-t erm use; Chronic atrial fibrillation (HCC) Chronic atrial fibri llation (HCC) Start: 07-24-2021 End: 07-24-2021 Subsequent hospital visit by physician Laura Yang APRN - FINAL ASSEMBLY INSPECTOR Work Phone: [facility] Comment on above: Mass of upper outer quadrant of right breast Start: 07-02-2021 [facility] Start: 07-02-2021 End: 07-02-2021 Subsequent hospital visit by physician Kory Ibarra DO Work Phone: [facility] Mammography Comment on above: Hx of abnormal mammo gram; Other signs and symptoms in breast Start: 04-30-2021 ambulatory [facility] Start: 01-20-2021 [facility] Start: 12-30-2020 ambulatory [facility] Start: 12-30-2020 End: 12-30-2020 Subsequent hospital visit by physician Ino Ly MD Work Phone: [facility] Laboratory Comment on above: Chronic atrial fibri llation (HCC) Hypercholesteremia; Essential hypertension Start: 12-17-2020 ambulatory [facility] Start: 12-17-2020 End: 12-17-2020 Subsequent hospital visit by physician Ino Ly MD Work Phone: [facility] Laboratory Comment on above: Chronic atrial fibri llation (HCC) Start: 10-03-2020 End: 10-03-2020 Subsequent hospital visit by physician Ino Ly MD Work Phone: [facility] Laboratory Comment on above: Chronic atrial fibri [...] visit by physician Ino Ly Work Phone: [facility] Laboratory Comment on above: Atrial fibrillation, unspecified type (HCC) Start: 02-03-2019 End: 02-03-2019 Subsequent hospital visit by physician Ino Ly Work Phone: [facility] Laboratory Comment on above: Atrial fibrillation, unspecified type (HCC) Start: 01-06-2019 End: 01-06-2019 Subsequent hospital visit by physician Ino Ly Work Phone: [facility] Laboratory Comment on above: Atrial fibrillation, unspecified type (HCC) Start: 11-23-2018 End: 11-23-2018 Subsequent hospital visit by physician Kory Ibarra Work Phone: [facility] [facility] Comment on above: Breast cancer screen ing Start: 10-25-2018 End: 10-25-2018 Subsequent hospital visit by physician Ino Ly Work Phone: [facility] Laboratory Comment on above: Chronic atrial fibri llation (HCC) Start: 06-08-2017 Ambulatory Bethel Freeman [facility] Procedures Date Procedure Procedure Detail Performing [...] d Benita Moon MD Work Phone: Start: 11-21-2024 Follow-up [...] elbow 2 views Satya john paul Phil [employer] 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 Work Phone: Start: 07-31-2024 Ecg routine ecg [...] Work Phone: Start: 04-28-2024 URINE HOLD CUP Kawn Aviles DO Work Phone: Start: 04-28-2024 Creatinine other source Kwan Aviles DO Work Phone: Start: 04-28-2024 Iaadiadoo not otherw ise specified Silvino Zabala MD Work Phone: Start: 04-28-2024 LEGIONELLA AND STREP TOCOCCUS URINE ANTIGEN, ORDERABLE Silvino Zabala MD Work Phone: Start: 04-28-2024 URINE HOLD CUP Silvino Zabala MD Work Phone: Start: 04-28-2024 Basic metabolic pane l calcium total Yaenlis Raya POLANCO Work Phone: Start: 04-28-2024 Urinalysis [...] mammograp hy computer-aided detcj uni Laura Yang [employer] MANAGER - FINAL ASSEMBLY INSPECTOR Work Phone: Start: 07-24-2021 US GUIDED RIGHT MOIZ ST BIOPSY Laura Yang [employer] MANAGER - FINAL ASSEMBLY INSPECTOR Work Phone: Start: 07-02-2021 End: 07-02-2021 Diagnostic [...] Start: 02-01-2020 Prothrombin time [facility] [place] Work Phone: Start: 01-25-2020 [facility]throm[facility] [place] Work Phone: Start: 11-27-2019 Diagnostic mammograp hy computer-aided detcj bi Kory Ibarra Work Phone: Start: 09-21-2019 Prothrombin time [facility] [place] Work Phone: Start: 07-04-2019 Prothrombin time [facility] [place] Work Phone: Start: 05-19-2019 Assay of thyroid [...] Start: 02-06-2019 Prothrombin time [employer] [place] Work Phone: Start: 02-03-2019 Prothrombin time [facility] [place] Work Phone: Start: 01-06-2019 Prothrombin time [facility] [place] Work Phone: Start: 10-25-2018 Prothrombin time [facility] [place] Work Phone: Start: 04-06-2017 Colonoscopy Kory landeros DO Work Phone: Respiratory Panel (PCR) Dr. Kory Ibarra Work Phone: SARS-CoV-2 & FLU Ant igen (Rapid) Streptococcus pneumo niae Antigen (M Dr. Kory Ibarra Work Phone: Plan of Treatment Date Care Activity Detail Author Start: 03-25-2028 Lipid panel [facility] Start: 09-23-2027 [facility] Start: 08-06-2027 Diabetes Screening Diabetes Screening [facility] Start: 04-06-2027 Colon cancer screen colonoscopy Colon cancer screen colonoscopy [place], [place] Start: 04-06-2027 Screening for malignant neoplasm of colon [facility] Start: 03-24-2027 Lipid panel Lipid Panel [facility] Start: 07-01-2026 Lipid panel Lipid Panel [facility] Start: 03-25-2026 Diabetes Screening Diabetes Screening [facility] Start: 12-19-2025 Creatinine measurement Creatinine Level [facility] Start: 12-19-2025 Potassium measurement Potassium Level [facility] Start: 12-04-2025 Echocardiography Echocardiogram [facility] Start: 11-09-2025 End: 11-09-2025 Immunofixation Electrophoresis [facility] Electrophoresis Lab Routine Leukocytosis, unspecified type Anemia, unspecified type Thrombocytopenia (HCC) Expected: 11/09/2025 (Approximate), Expires: 11/09/2025 [facility] Comment on above: Expected: 11/09/2025 (Approximate), Expi res: 11/09/2025 Start: 09-28-2025 Screening for malignant neoplasm of breast Mammogram [facility] Start: 09-22-2025 Diabetes Screening Diabetes Screening [facility] Start: 08-05-2025 Creatinine measurement Creatinine Level [facility] Start: 08-05-2025 Potassium measurement Potassium Level [facility] Start: 06-21-2025 [facility] Start: 06-21-2025 Potassium measurement Potassium Level [facility] Start: 05-12-2025 End: 11-09-2025 K/L Qnt Free Light Chains with Ratio (BKR [facility]) K/L Qnt Free Light Chains with Ratio (BKR [facility]) Lab Routine Leukocytosis, unspecified type Anemia, unspecified type Thrombocytopenia (HCC) Expected: 05/12/2025 (Approximate), Expires: 11/09/2025 [facility] Comment on above: Expected: 05/12/2025 (Approximate), Expi res: 11/09/2025 Start: 05-08-2025 Creatinine measurement [facility] Start: 05-08-2025 Echocardiography Echocardiogram [facility] Start: 05-08-2025 Potassium measurement [facility] Start: 05-08-2025 [facility] Start: 05-05-2025 Creatinine measurement Creatinine Level [facility] Start: 05-05-2025 Potassium measurement Potassium Level [facility] Start: 05-03-2025 Creatinine measurement Creatinine Level [facility] Start: 05-03-2025 Potassium measurement Potassium Level [facility] Start: 04-27-2025 Creatinine measurement Creatinine Level [facility] Start: 04-27-2025 Potassium measurement Potassium Level [facility] Start: 04-18-2025 Creatinine measurement Creatinine Level [facility] Start: 04-18-2025 Potassium measurement Potassium Level [facility] Start: 04-03-2025 Creatinine measurement Creatinine Level [facility] Start: 04-03-2025 Diabetes mellitus screening [facility] Start: 04-03-2025 Potassium measurement Potassium Level [facility] Start: 03-20-2025 End: 03-20-2025 Patient encounter procedure 03/20/2025 10:15 AM EST Office Visit [facility] [address] [place] [address] [place] [phone] Marion Mccann DO [address] [place] [address] [place] [address] [facility] [place] Start: 03-12-2025 End: 01-10-2026 CBC W Auto Differential panel - Blood CBC auto differential Lab Routine 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) Expected: 03/12/2025 (Approximate), Expires: 01/10/2026 [facility] Work Phone: Comment on above: Expected: 03/12/2025 (Approximate), Expi res: 01/10/2026 Start: 02-28-2025 End: 02-28-2025 Patient encounter procedure 02/28/2025 11:00 AM EST Office Visit [address] [place] [address] Benita Moon MD 95 [facility] [address] [place] [address] [facility] Start: 02-21-2025 Creatinine measurement Creatinine Level [facility] Start: 02-21-2025 Potassium measurement Potassium Level [facility] Start: 02-16-2025 Creatinine measurement Creatinine Level [facility] Start: 02-16-2025 Echocardiography Echocardiogram [facility] Start: 02-16-2025 Potassium measurement Potassium Level [facility] Start: 02-15-2025 Creatinine measurement Creatinine Level [facility] Start: 02-15-2025 Potassium measurement Potassium Level [facility] Start: 02-13-2025 Creatinine measurement Creatinine Level [facility] Start: 02-13-2025 Potassium measurement Potassium Level [facility] Start: 02-10-2025 Creatinine measurement Creatinine Level [facility] Start: 02-10-2025 Potassium measurement Potassium Level [facility] Start: 01-26-2025 End: 01-26-2025 Patient encounter procedure 01/26/2025 9:00 AM EST Office Visit [facility] [address] [place] [address] Josselyn Bhardwaj PA-C 95 [facility] [address] [place] [address] [facility] Start: 01-25-2025 End: 01-25-2025 Patient encounter procedure 01/25/2025 9:20 AM EST Office Visit [facility] [address] [facility] [address] [place] [address] Greyson Cifuentes MD [address] [facility] [address] [place] [address] [facility] Start: 01-15-2025 End: 01-15-2025 Patient encounter procedure 01/15/2025 1:00 PM EST Office Visit [facility] [address] [place] [address] Kory Ibarra Chayito, [address] [place] [phone] [facility] Start: 01-10-2025 End: 01-10-2025 Patient encounter procedure 01/10/2025 2:30 PM EDT Office Visit [facility] [place] [address] [place] [phone] Marion Mccann DO [address] [place], [place] [id number] [facility] [place] Start: 01-09-2025 End: 01-09-2025 Patient encounter procedure 01/09/2025 10:00 AM EDT Office Visit [facility] [place] [address] [place] [phone] Josselyn Bhardwaj PA-C [address] [address] [facility] [place] Start: 12-20-2024 End: 12-20-2024 ambulatory [facility] Start: 12-20-2024 End: 12-20-2024 Patient encounter procedure 12/20/2024 8:00 AM EDT Appointment [facility] [address] [place] [address] Marion Mccann DO [address] [place] [address] [facility] Start: 12-19-2024 End: 12-19-2025 Basic metabolic 1998 panel - Serum or Plasma Basic metabolic panel Lab Routine Chronic heart failure with mildly reduced ejection fraction (HFmrEF, 41-49%) (HCC) Expected: 12/19/2024 (Approximate), Expires: 12/19/2025 [facility] Work Phone: Comment on above: Expected: 12/19/2024 (Approximate), Expi res: 12/19/2025 Start: 12-19-2024 Depression Monitoring Depression Monitoring [facility] Start: 12-13-2024 End: 12-06-2025 Basic metabolic 1998 panel - Serum or Plasma Basic metabolic panel Lab Routine Chronic heart failure with mildly reduced ejection fraction (HFmrEF, 41-49%) (HCC) Expected: 12/13/2024 (Approximate), Expires: 12/06/2025 [facility] Work Phone: Comment on above: Expected: 12/13/2024 (Approximate), Expi res: 12/06/2025 Start: 12-07-2024 End: 12-07-2024 Patient encounter procedure 12/07/2024 12:40 PM EDT Office Visit [facility] [address] [place] [address] [place] [phone] Benita Moon MD [address] [place], [place] [id number] [facility] Start: 12-04-2024 End: 12-04-2024 Patient encounter procedure 12/04/2024 2:00 PM EDT Appointment [facility] [place] [facility] [address] [place] [phone] Benita Moon MD [address] [place] [address] [facility] [place] [facility] Start: 11-27-2024 End: 11-27-2024 Clinical Support 11/27/2024 2:00 PM EDT [facility] [address] [place] [phone] [facility] Start: 11-24-2024 End: 09-11-2026 CBC W Auto Differential panel - Blood CBC auto differential Lab STAT Adrenal mass, left (HCC) Thrombocytopenia (HCC) Expected: 11/24/2024 (Approximate), Expires: 11/23/2025 [facility] Work Phone: Comment on above: Expected: 11/24/2024 (Approximate), Expi res: 11/23/2025 Start: 11-21-2024 End: 11-21-2025 Bone marrow exam Bone marrow exam Pathology and Cytology Routine Leukocytosis, unspecified type Anemia, unspecified type Thrombocytopenia (HCC) Expected: 11/21/2024 (Approximate), Expires: 11/21/2025 [facility] Work Phone: Comment on above: Expected: 11/21/2024 (Approximate), Expi res: 11/21/2025 Start: 11-21-2024 End: 11-21-2024 Patient encounter procedure 11/21/2024 9:00 AM EDT Office Visit [facility] [place] [address] [place] [phone] Marion Mccann DO [address] [place], [place] [id number] [facility] [place] Start: 11-20-2024 End: 11-20-2024 Patient encounter procedure 11/20/2024 1:00 PM EDT Appointment [facility] [place] [facility] [address] [place] [address] Benita Moon MD [address] [place] [address] [address] [place] [address] [facility] [place] [facility] Start: 11-16-2024 Subsequent hospital visit by physician 11/16/2024 10:45 AM EDT Hospital Encounter [facility] [address] [place] [phone] Marion Mccann DO [address] [place] [address] [facility] Start: 11-13-2024 COVID-19 Vaccine ( season) COVID-19 Vaccine ( season) [facility] Start: 11-13-2024 Influenza vaccination Influenza Vaccine (#1) [facility] Start: 11-09-2024 End: 11-09-2025 BCR-ABL1 t(9;22), Blood [facility] Comment on above: Expected: 11/09/2024 (Approximate), Expi res: 11/09/2025 Start: 11-09-2024 End: 11-09-2025 CT Abdomen and Pelvis WO and W contrast IV CT chest abdomen pelvis with contrast Imaging Routine Leukocytosis, unspecified type Anemia, unspecified type Adrenal mass, left (HCC) Expected: 11/09/2024, Expires: 11/09/2025 [facility] Comment on above: Expected: 11/09/2024, Expires: Start: 11-09-2024 End: 11-09-2025 Flow cytometry [facility] Comment on above: Expected: 11/09/2024 (Approximate), Expi res: 11/09/2025 Start: 11-09-2024 End: 11-09-2024 Patient encounter procedure 11/09/2024 2:00 PM EDT Office Visit [facility] [address] [place] [address] [place] [phone] Marion Mccann DO [address] [place] [address] [place] [address] [facility] [place] Start: 11-09-2024 End: 11-09-2025 Peripheral Blood Smear [facility] Work Phone: Comment on above: Expected: 11/09/2024 (Approximate), Expi res: 11/09/2025 Start: 11-09-2024 End: 11-09-2025 Protein, Total and Protein Electrophoresis [facility] Comment on above: Expected: 11/09/2024 (Approximate), Expi res: 11/09/2025 Start: 11-07-2024 End: 11-07-2024 Patient encounter procedure 11/07/2024 10:15 AM EDT Office Visit [facility] [place] [address] [place] [phone] Marion Mccann DO [address] [place] [address] [facility] [place] Start: 10-31-2024 End: 10-31-2024 Patient encounter procedure 10/31/2024 1:00 PM EDT Appointment [facility] [place] [facility] [address] [place] [address] Benita Moon MD [address] [place] [address] [address] [place] [address] [facility] Start: 10-04-2024 End: 10-04-2024 Patient encounter procedure 10/04/2024 9:00 AM EDT Office Visit [facility] [place] [address] [place] [address] Marion Mccann DO [address] [place] [address] [facility] [place] Start: 09-28-2024 End: 09-28-2024 Patient encounter procedure 09/28/2024 3:00 PM EDT Appointment [facility] [address] [place] [address] Kory Ibarra, DO [address] [place] [phone] [facility] Start: 09-26-2024 End: 09-26-2024 Patient encounter procedure 09/26/2024 2:40 PM EDT Appointment [facility] [address] [place] [address] Kory Ibarra, DO [address] [place] [place] [address] [facility] Start: 09-22-2024 End: 09-22-2024 Patient encounter procedure 09/22/2024 11:20 AM EDT Appointment [facility] [address] [place] [address] Kory Ibarra, [address] [place] [address] [place] [address] [facility] Start: 09-19-2024 End: 08-20-2025 Basic metabolic 1998 panel - Serum or Plasma Basic metabolic panel Lab Routine Thrombocytopenia (HCC) Expected: 09/19/2024 (Approximate), Expires: 08/20/2025 [facility] Comment on above: Expected: 09/19/2024 (Approximate), Expi res: 08/20/2025 Start: 09-19-2024 End: 08-20-2025 CBC W Auto Differential panel - Blood CBC auto differential Lab Routine Thrombocytopenia (HCC) Expected: 09/19/2024 (Approximate), Expires: 08/20/2025 [facility] Comment on above: Expected: 09/19/2024 (Approximate), Expi res: 08/20/2025 Start: 09-19-2024 End: 08-20-2025 K/L Qnt Free Light Chains with Ratio K/L Qnt Free Light Chains with Ratio Lab Routine Thrombocytopenia (HCC) Expected: 09/19/2024 (Approximate), Expires: 08/20/2025 [facility] Work Phone: Comment on above: Expected: 09/19/2024 (Approximate), Expi res: 08/20/2025 Start: 09-18-2024 End: 09-18-2024 Patient encounter procedure 09/18/2024 2:00 PM EDT Appointment [facility] [address] [place] [address] Kory Ibarra, [address] [place] [address] [place] [address] [facility] Start: 09-13-2024 End: 09-13-2024 Patient encounter procedure 09/13/2024 10:00 AM EDT Office Visit [facility] [address] [place] [address] Kory Ibarra DO [address] [place] [address] [facility] Start: 08-31-2024 Continuous positive airway pressure ventilation treatment [facility] Start: 08-30-2024 Continuous positive airway pressure ventilation treatment [facility] Start: 08-29-2024 Continuous positive airway pressure ventilation treatment [facility] Start: 08-28-2024 Continuous positive airway pressure ventilation treatment [facility] Start: 08-28-2024 Patient discharge [facility] Start: 08-27-2024 Continuous positive airway pressure ventilation treatment [facility] Start: 08-26-2024 Continuous positive airway pressure ventilation treatment [facility] Start: 08-25-2024 Continuous positive airway pressure ventilation treatment [facility] Start: 08-25-2024 Referral to service [facility] Start: 08-25-2024 Respiratory secretion precautions [facility] Start: 08-25-2024 Following clinical pathway protocol [facility] Start: 08-25-2024 Ambulation without limitation [facility] Start: 08-25-2024 Assessment of risk of venous thromboembolism [facility] Start: 08-25-2024 Catheterization of vein [facility] Start: 08-25-2024 Elevation of head of bed [facility] Start: 08-25-2024 Inhalation therapy procedure [facility] Start: 08-25-2024 Insertion of catheter into peripheral vein [facility] Start: 08-25-2024 Measuring intake and output [facility] Start: 08-25-2024 Oxygen therapy [facility] Start: 08-25-2024 Patient education [facility] Start: 08-25-2024 Physiotherapy of chest [facility] Start: 08-25-2024 Providing care according to standard [facility] Start: 08-25-2024 Referral to occupational therapist [facility] Start: 08-25-2024 Referral to service [facility] Start: 08-25-2024 End: 08-25-2024 [facility] Start: 08-24-2024 Hospital admission, emergency, from emergency room, medical nature [facility] Start: 08-24-2024 Bacteria identified in Sputum by Culture [facility] Start: 08-24-2024 Verification routine [facility] Start: 08-24-2024 Admission procedure [facility] Start: 08-24-2024 CT Chest WO contrast [facility] Start: 08-24-2024 CT of chest without contrast Chest without Contrast [facility] Start: 08-24-2024 Continuous positive airway pressure ventilation treatment [facility] Start: 08-24-2024 Respiratory pathogens DNA and RNA panel - Respiratory specimen by STEPHANIE with probe detection [facility] Start: 08-24-2024 Taking nasal swab [facility] Start: 08-24-2024 Streptococcus pneumoniae antigen assay [facility] Start: 08-24-2024 Legionella Antigen Legionella Antigen [facility] Start: 08-24-2024 Streptococcus pneumoniae Antigen (M Streptococcus pneumoniae Antigen (M [facility] Start: 08-23-2024 End: 08-23-2024 Patient encounter procedure 08/23/2024 2:00 PM EDT Appointment [facility] Non-Invasive Cardiology [address] [place] [address] Benita Moon MD [address] [place] [address] [address] [place] [address] [facility]-Invasive Cardiology Start: 08-15-2024 End: 08-15-2024 Patient encounter procedure 08/15/2024 10:00 AM EDT Office Visit [facility] [address] [place] [address] Kory Ibarra DO [address] [place] [address] [facility] [place] Start: 08-01-2024 Screening for malignant neoplasm of breast [facility] Start: 07-31-2024 End: 07-31-2026 US Heart Transthoracic Transthoracic echocardiogram (TTE) complete with contrast, bubble, strain, and 3D PRN CV Echocardiography Routine Pulmonary HTN (HCC) Expected: 07/31/2024 (Approximate), Expires: 07/31/2026 [facility] Work Phone: Comment on above: Expected: 07/31/2024 (Approximate), Expi res: 07/31/2026 Start: 07-31-2024 End: 07-31-2024 Patient encounter procedure 07/31/2024 11:20 AM EDT Office Visit [address] [place] [address] Benita Moon MD [address] [place] [address] [address] [place] [address] [facility] Start: 06-27-2024 End: 06-27-2024 Patient encounter procedure 06/27/2024 2:20 PM EDT Procedure Visit [facility] [address] [place] [address] Jamie Jimenez MD [address] [facility] [address] [place] [address] [facility] Start: 06-23-2024 End: 06-23-2025 Immunofixation Electrophoresis Immunofixation Electrophoresis Lab Routine Abnormal protein electrophoresis Expected: 06/23/2024 (Approximate), Expires: 06/23/2025 [facility] Comment on above: Expected: 06/23/2024 (Approximate), Expi res: 06/23/2025 Start: 06-23-2024 End: 06-23-2025 Immunoglobulins, IgG, IgA, IgM Immunoglobulins, IgG, IgA, IgM Lab Routine Abnormal protein electrophoresis Expected: 06/23/2024 (Approximate), Expires: 06/23/2025 [facility] Work Phone: Comment on above: Expected: 06/23/2024 (Approximate), Expi res: 06/23/2025 Start: 06-21-2024 End: 06-21-[address] [facility] [place] Start: 06-21-2024 End: 06-21-2024 Patient encounter procedure 06/21/2024 10:30 AM EDT [facility] [address] [place] [address] Kory Ibarra DO [address] [place] [address] [facility] Start: 06-20-2024 Depression Monitoring Depression Monitoring [facility] Start: 06-20-2024 [facility] Start: 06-19-2024 End: 06-19-2025 CBC W Auto Differential panel - Blood CBC auto differential Lab Routine Normochromic normocytic anemia Expected: 06/19/2024 (Approximate), Expires: 06/19/2025 [facility] Comment on above: Expected: 06/19/2024 (Approximate), Expi res: 06/19/2025 Start: 06-19-2024 End: 06-19-2025 Cobalamin (Vitamin B12) [Mass/volume] in Serum or Plasma Vitamin B12 Lab Routine Normochromic normocytic anemia Expected: 06/19/2024 (Approximate), Expires: 06/19/2025 [facility] Comment on above: Expected: 06/19/2024 (Approximate), Expi res: 06/19/2025 Start: 06-19-2024 End: 06-19-2025 Comprehensive metabolic 1998 panel - Serum or Plasma Comprehensive metabolic panel Lab Routine Normochromic normocytic anemia Expected: 06/19/2024 (Approximate), Expires: 06/19/2025 [facility] Comment on above: Expected: 06/19/2024 (Approximate), Expi res: 06/19/2025 Start: 06-19-2024 End: 06-19-2025 Ferritin [Mass/volume] in Serum or Plasma Ferritin Lab Routine Normochromic normocytic anemia Expected: 06/19/2024 (Approximate), Expires: 06/19/2025 [facility] Work Phone: Comment on above: Expected: 06/19/2024 (Approximate), Expi res: 06/19/2025 Start: 06-19-2024 End: 06-19-2025 Iron and Iron binding capacity panel - Serum or Plasma Iron and TIBC Lab Routine Normochromic normocytic anemia Expected: 06/19/2024 (Approximate), Expires: 06/19/2025 [facility] Comment on above: Expected: 06/19/2024 (Approximate), Expi res: 06/19/2025 Start: 06-05-2024 Patient discharge [facility] Start: 06-03-2024 Referral to service [facility] Start: 06-02-2024 Ambulation without limitation [facility] Start: 06-02-2024 Assessment of risk of venous thromboembolism [facility] Start: 06-02-2024 Inhalation therapy procedure [facility] Start: 06-02-2024 Insertion of catheter into peripheral vein [facility] Start: 06-02-2024 Measuring intake and output [facility] Start: 06-02-2024 Oxygen therapy [facility] Start: 06-02-2024 Providing care according to standard [facility] Start: 06-02-2024 Referral to occupational therapist [facility] Start: 06-02-2024 Referral to service [facility] Start: 06-02-2024 [facility] Start: 06-02-2024 Following clinical pathway protocol [facility] Start: 06-02-2024 [facility] Start: 06-02-2024 Bacteria identified in Blood by Culture Blood Culture [facility] Start: 06-02-2024 Blood culture Blood Culture [facility] Start: 06-02-2024 Verification routine [facility] Start: 06-02-2024 Respiratory pathogens DNA and RNA panel - Respiratory specimen by STEPHANIE with probe detection [facility] Start: 06-02-2024 Admission procedure [facility] Start: 06-02-2024 Hospital admission, emergency, from emergency room, medical nature [facility] Start: 06-02-2024 [facility] Start: 06-02-2024 Continuous pulse oximetry [facility] Start: 06-02-2024 End: 06-02-2024 [facility] Start: 06-02-2024 Dual pressure spontaneous ventilation support [facility] Start: 06-02-2024 Patient referral to dietitian [facility] Start: 05-31-2024 End: 05-31-2025 Basic metabolic 1998 panel - Serum or Plasma Basic metabolic panel Lab Routine Permanent atrial fibrillation (HCC) Anticoagulant long-term use Expected: 05/31/2024 (Approximate), Expires: 05/31/2025 [facility] Comment on above: Expected: 05/31/2024 (Approximate), Expi res: 05/31/2025 Start: 05-31-2024 End: 05-31-2025 CBC W Auto Differential panel - Blood CBC auto differential Lab Routine Permanent atrial fibrillation (HCC) Anticoagulant long-term use Expected: 05/31/2024 (Approximate), Expires: 05/31/2025 [facility] Work Phone: Comment on above: Expected: 05/31/2024 (Approximate), Expi res: 05/31/2025 Start: 05-31-2024 End: 05-31-2024 ambulatory [facility] [place] Start: 05-31-2024 End: 05-31-2024 Patient encounter procedure 05/31/2024 10:00 AM EDT Office Visit [facility] [place] [address] [facility] [address] [place] [address] Chelo Huitron, [employer] - [employer] [address] [facility] [place] [address] [facility] [place] Start: 05-21-2024 End: 04-23-2025 Basic metabolic 1998 panel - Serum or Plasma Basic metabolic panel Lab Routine Venous insufficiency Expected: 05/21/2024 (Approximate), Expires: 04/23/2025 [facility] Work Phone: Comment on above: Expected: 05/21/2024 (Approximate), Expi res: 04/23/2025 Start: 05-08-2024 End: 05-01-2025 Basic metabolic 1998 panel - Serum or Plasma [facility] Work Phone: Start: 04-27-2024 End: 04-27-2025 Cortisol, urine, 24 hour Cortisol, urine, 24 hour Lab Routine Disorder of adrenal gland, unspecified (HCC) Expected: 04/27/2024 (Approximate), Expires: 04/27/2025 [facility] Comment on above: Expected: 04/27/2024 (Approximate), Expi res: 04/27/2025 Start: 04-27-2024 End: 04-27-2025 METANEPHRINES, FRACTIONATED, LC/MS/MS, RANDOM URINE [facility] METANEPHRINES, FRACTIONATED, LC/MS/MS, RANDOM URINE [facility] Lab Routine Disorder of adrenal gland, unspecified (HCC) Expected: 04/27/2024 (Approximate), Expires: 04/27/2025 [facility] Work Phone: Comment on above: Expected: 04/27/2024 (Approximate), Expi res: 04/27/2025 Start: 04-27-2024 End: 04-27-2024 Patient encounter procedure 04/27/2024 9:00 AM EST Office Visit [facility] [address] [place] [address] Benita Moon MD [address] [place] [address] [address] [place] [address] [facility] Start: 04-18-2024 End: 04-18-2025 Catecholamines,Frac Urine Catecholamines,Frac Urine Lab Routine Disorder of adrenal gland, unspecified (HCC) Permanent atrial fibrillation (HCC) Expected: 04/18/2024 (Approximate), Expires: 04/18/2025 [facility] Comment on above: Expected: 04/18/2024 (Approximate), Expi res: 04/18/2025 Start: 04-18-2024 End: 04-18-2025 Cortisol, urine, 24 hour Cortisol, urine, 24 hour Lab Routine Disorder of adrenal gland, unspecified (HCC) Permanent atrial fibrillation (HCC) Expected: 04/18/2024 (Approximate), Expires: 04/18/2025 [facility] Comment on above: Expected: 04/18/2024 (Approximate), Expi res: 04/18/2025 Start: 04-18-2024 End: 04-18-2025 METANEPHRINES, FRACTIONATED, LC/MS/MS, RANDOM URINE [facility] METANEPHRINES, FRACTIONATED, LC/MS/MS, RANDOM URINE [facility] Lab Routine Disorder of adrenal gland, unspecified (HCC) Permanent atrial fibrillation (HCC) Expected: 04/18/2024 (Approximate), Expires: 04/18/2025 [facility] Comment on above: Expected: 04/18/2024 (Approximate), Expi res: 04/18/2025 Start: 04-18-2024 End: 04-18-2025 VMA, urine VMA, urine Lab Routine Disorder of adrenal gland, unspecified (HCC) Permanent atrial fibrillation (HCC) Expected: 04/18/2024 (Approximate), Expires: 04/18/2025 [facility] Work Phone: Comment on above: Expected: 04/18/2024 (Approximate), Expi res: 04/18/2025 Start: 04-18-2024 End: 04-18-2024 Patient encounter procedure 04/18/2024 1:20 PM EST [facility] [address] [place] [address] Jamie Jimenez MD [address] [facility] [address] [place] [address] [facility] Start: 04-06-2024 End: 04-06-2024 Patient encounter procedure 04/06/2024 11:00 AM EST Office Visit [facility] [address] [place] [address] Benita Moon MD [address] [place] [address] [address] [place] [address] [facility] Start: 04-05-2024 End: 04-05-2025 Basic metabolic 1998 panel - Serum or Plasma Basic metabolic panel Lab Routine Permanent atrial fibrillation (HCC) Expected: 04/05/2024 (Approximate), Expires: 04/05/2025 [facility] Work Phone: Comment on above: Expected: 04/05/2024 (Approximate), Expi res: 04/05/2025 Start: 04-05-2024 End: 04-05-2025 Digoxin level Digoxin level Lab Routine Permanent atrial fibrillation (HCC) Expected: 04/05/2024 (Approximate), Expires: 04/05/2025 [facility] Comment on above: Expected: 04/05/2024 (Approximate), Expi res: 04/05/2025 Start: 04-03-2024 End: 04-03-2025 Catecholamines,Frac Urine Catecholamines,Frac Urine Lab Routine Lesion of adrenal gland (HCC) Expected: 04/03/2024 (Approximate), Expires: 04/03/2025 [facility] Comment on above: Expected: 04/03/2024 (Approximate), Expi res: 04/03/2025 Start: 04-03-2024 End: 04-03-2025 CBC W Auto Differential panel - Blood CBC auto differential Lab Routine Lesion of adrenal gland (HCC) Expected: 04/03/2024 (Approximate), Expires: 04/03/2025 [facility] Work Phone: Comment on above: Expected: 04/03/2024 (Approximate), Expi res: 04/03/2025 Start: 04-03-2024 End: 04-03-2025 Comprehensive metabolic 1998 panel - Serum or Plasma Comprehensive metabolic panel Lab Routine Lesion of adrenal gland (HCC) Expected: 04/03/2024 (Approximate), Expires: 04/03/2025 [facility] Comment on above: Expected: 04/03/2024 (Approximate), Expi res: 04/03/2025 Start: 04-03-2024 End: 04-03-2025 Cortisol, urine, 24 hour Cortisol, urine, 24 hour Lab Routine Lesion of adrenal gland (HCC) Expected: 04/03/2024 (Approximate), Expires: 04/03/2025 [facility] Comment on above: Expected: 04/03/2024 (Approximate), Expi res: 04/03/2025 Start: 04-03-2024 End: 04-03-2025 Digoxin level Digoxin level Lab Routine Encounter for therapeutic drug level monitoring Expected: 04/03/2024 (Approximate), Expires: 04/03/2025 [facility] Comment on above: Expected: 04/03/2024 (Approximate), Expi res: 04/03/2025 Start: 04-03-2024 End: 04-03-2025 Hemoglobin A1c measurement Hemoglobin A1c Lab Routine Lesion of adrenal gland (HCC) Hyperglycemia Expected: 04/03/2024 (Approximate), Expires: 04/03/2025 [facility] Comment on above: Expected: 04/03/2024 (Approximate), Expi res: 04/03/2025 Start: 04-03-2024 End: 04-03-2025 Metanephrines, Urine Metanephrines, Urine Lab Routine Lesion of adrenal gland (HCC) Expected: 04/03/2024 (Approximate), Expires: 04/03/2025 [facility] Comment on above: Expected: 04/03/2024 (Approximate), Expi res: 04/03/2025 Start: 04-03-2024 End: 04-03-2025 Thyrotropin [Units/volume] in Serum or Plasma TSH Lab Routine Permanent atrial fibrillation (HCC) Expected: 04/03/2024 (Approximate), Expires: 04/03/2025 [facility] Comment on above: Expected: 04/03/2024 (Approximate), Expi res: 04/03/2025 Start: 04-03-2024 End: 04-03-2025 VMA, urine VMA, urine Lab Routine Lesion of adrenal gland (HCC) Expected: 04/03/2024 (Approximate), Expires: 04/03/2025 [facility] Comment on above: Expected: 04/03/2024 (Approximate), Expi res: 04/03/2025 Start: 04-03-2024 End: 04-03-2024 Patient encounter procedure 04/03/2024 8:30 AM EST Office Visit [facility] [place] [address] [place] [address] Brooklyn Baldwin, [employer] - FINAL ASSEMBLY INSPECTOR [address] [place] [address] [facility] Start: 03-25-2024 Creatinine measurement Creatinine Level [facility] Start: 03-25-2024 Potassium measurement Potassium Level [facility] Start: 03-24-2024 End: 03-24-2024 Patient encounter procedure 03/24/2024 10:00 AM EST Office Visit [facility] [place] [address] [place] [address] Kory Ibarra, [address] [place] [address] [place] [address] [facility] [place] Start: 03-16-2024 End: 03-16-2024 Patient encounter procedure 03/16/2024 10:15 AM EST Office Visit [facility] [place] [address] [place] [address] Brooklyn Baldwin, [employer]NAGER - FINAL ASSEMBLY INSPECTOR [address] [place] [address] [facility] [place] Start: 03-15-2024 Advance Directive Discussion Advance Directive Discussion [facility] Start: 03-15-2024 Medicare Advantage Annual Wellness Visit Medicare Advantage Annual Wellness Visit [facility] Start: 03-15-2024 [facility] Start: 02-28-2024 End: 02-28-2024 Patient encounter procedure 02/28/2024 2:30 PM EST Office Visit [facility] [place] [address] [place] [address] Kory Ibarra DO [address] [place] [address] [place] [address] [facility] [place] Start: 02-23-2024 End: 02-23-2024 Patient encounter procedure [facility] Start: 02-15-2024 End: 02-15-2024 Patient encounter procedure 02/15/2024 10:00 AM EST Office Visit [facility] [place] [address] [place] [id number] Brooklyn Baldwin, [employer] MANAGER - FINAL ASSEMBLY INSPECTOR [address] [place] [address] [facility] [place] Start: 02-14-2024 End: 02-13-2025 C reactive protein [Mass/volume] in Serum or Plasma by High sensitivity method [facility] Comment on above: Expected: 02/14/2024 (Approximate), Expi res: 02/13/2025 Start: 02-14-2024 End: 02-13-2025 CT Lumbar spine WO contrast [facility] Comment on above: Expected: 02/14/2024, Expires: Start: 02-14-2024 End: 02-13-2025 XR Chest 2 Views [facility] Work Phone: Comment on above: Expected: 02/14/2024, Expires: Start: 02-14-2024 End: 02-14-2024 Patient encounter procedure 02/14/2024 11:20 AM EST Office Visit [facility] [place] [address] [place] [address] Curt Last PA-C [address] [place] [address] [facility] [place] Start: 01-25-2024 End: 01-25-2024 Patient encounter procedure [facility] Start: 12-21-2023 End: 12-20-2024 CBC W Auto Differential panel - Blood CBC auto differential Lab Routine Postmenopausal vaginal bleeding Expected: 12/21/2023 (Approximate), Expires: 12/20/2024 [facility] Work Phone: Comment on above: Expected: 12/21/2023 (Approximate), Expi res: 12/20/2024 Start: 12-21-2023 End: 12-20-2024 Comprehensive metabolic 1998 panel - Serum or Plasma Comprehensive metabolic panel Lab Routine Postmenopausal vaginal bleeding Expected: 12/21/2023 (Approximate), Expires: 12/20/2024 [facility] Comment on above: Expected: 12/21/2023 (Approximate), Expi res: 12/20/2024 Start: 12-21-2023 End: 12-20-2024 US Pelvis US pelvis Imaging Routine Postmenopausal vaginal bleeding Expected: 12/21/2023, Expires: 12/20/2024 [facility] Comment on above: Expected: 12/21/2023, Expires: Start: 12-21-2023 End: 12-21-2023 Patient encounter procedure 12/21/2023 10:00 AM EDT Office Visit [facility] [address] [place] [address] Kory Ibarra DO [address] [place] [address] [facility] Start: 12-15-2023 End: 12-14-2024 XR Chest 2 Views XR chest 2 views Imaging STAT Leukocytosis, unspecified type Expected: 12/15/2023, Expires: 12/14/2024 [facility] Work Phone: Comment on above: Expected: 12/15/2023, Expires: Start: 12-13-2023 End: 12-12-2024 CBC W Auto Differential panel - Blood CBC auto differential Lab Routine Atrial fibrillation, unspecified type (HCC) Expected: 12/13/2023 (Approximate), Expires: 12/12/2024 [facility] Work Phone: Comment on above: Expected: 12/13/2023 (Approximate), Expi res: 12/12/2024 Start: 12-13-2023 End: 12-12-2024 Urinalysis complete panel - Urine Urinalysis with reflex microscopic Lab Routine Atrial fibrillation, unspecified type (HCC) Expected: 12/13/2023 (Approximate), Expires: 12/12/2024 [facility] Comment on above: Expected: 12/13/2023 (Approximate), Expi res: 12/12/2024 Start: 11-17-2023 End: 11-17-2023 Patient encounter procedure 11/17/2023 8:30 AM EDT Office Visit [facility] [address] [place] [address] Kory Ibarra, DO [address] [place] [address] [facility] Start: 11-14-2023 COVID-19 Vaccine ( season) COVID-19 Vaccine ( season) [facility] Start: 11-14-2023 COVID-19 Vaccine ( season) COVID-19 Vaccine ( season) [facility] Start: 11-14-2023 Influenza vaccination Influenza Vaccine (#1) [facility] Start: 11-14-2023 [facility] Start: 10-23-2023 Medicare Advantage Annual Wellness Visit (AWV) Medicare Advantage Annual Wellness Visit (AWV) [facility] Start: 09-24-2023 End: 09-24-2023 Patient encounter procedure 09/24/2023 10:30 AM EDT Office Visit [facility] [address] [place] [address] Kory Ibarra, DO [address] [place] [address] [facility] Start: 09-23-2023 Creatinine measurement Creatinine Level [facility] Start: 09-23-2023 Potassium measurement Potassium Level [facility] Start: 08-11-2023 End: 08-11-2023 Patient encounter procedure 08/11/2023 10:40 AM EDT Office Visit [facility] [address] [place] [address] Benita Moon MD [address] [place] [address] [address] [place] [address] [facility] Start: 07-25-2023 Screening for malignant neoplasm of breast Breast cancer screen [facility] Start: 07-03-2023 Screening for malignant neoplasm of breast Breast cancer screen [facility] Start: 06-15-2023 End: 06-15-2023 Patient encounter procedure 06/15/2023 2:00 PM EDT Office Visit [facility] [address] [place] [address] [place] [address] Jimbo Khalil MD [address] [place] [address] [place] [address] [facility] Start: 06-02-2023 End: 06-02-2023 Patient encounter procedure 06/02/2023 11:40 AM EDT Appointment [facility] [address] [place] [id number] Kory Ibarra DO [address] [place] [address] [facility] Start: 05-31-2023 COVID-19 Vaccine ( season) COVID-19 Vaccine ( season) [facility] Start: 05-11-2023 End: 05-11-2023 Patient encounter procedure 05/11/2023 2:30 PM EST Office Visit [facility] [address] [place] [address] Jimbo Khalil MD [address] [place] [address] [place] [address] [facility] Start: 05-10-2023 Lipid screen Lipid screen [facility] [place] Start: 04-20-2023 End: 04-20-2023 Patient encounter procedure 04/20/2023 1:30 PM EST Office Visit [facility] [address] [place] [address] Jimbo Khalil MD [address] [place] [address] [place] [address] [facility] Start: 03-29-2023 End: 02-03-2024 Basic metabolic 1998 panel - Serum or Plasma Basic metabolic panel Lab Routine Permanent atrial fibrillation (CMS/HCC) (HCC) Anticoagulant long-term use Expected: 03/29/2023 (Approximate), Expires: 02/03/2024 [facility] Comment on above: Expected: 03/29/2023 (Approximate), Expi res: 02/03/2024 Start: 03-29-2023 End: 02-03-2024 CBC W Auto Differential panel - Blood CBC auto differential Lab Routine Permanent atrial fibrillation (CMS/HCC) (HCC) Anticoagulant long-term use Expected: 03/29/2023 (Approximate), Expires: 02/03/2024 [facility] Work Phone: Comment on above: Expected: 03/29/2023 (Approximate), Expi res: 02/03/2024 Start: 03-25-2023 End: 03-25-2024 CBC W Auto Differential panel - Blood CBC auto differential Lab Routine Essential hypertension Expected: 03/25/2023 (Approximate), Expires: 03/25/2024 [facility] Work Phone: Comment on above: Expected: 03/25/2023 (Approximate), Expi res: 03/25/2024 Start: 03-25-2023 End: 03-25-2024 Comprehensive metabolic 1998 panel - Serum or Plasma Comprehensive metabolic panel Lab Routine Essential hypertension Expected: 03/25/2023 (Approximate), Expires: 03/25/2024 [facility] Comment on above: Expected: 03/25/2023 (Approximate), Expi res: 03/25/2024 Start: 03-25-2023 End: 05-23-2024 DBT Breast - bilateral screening Bilateral screening mammogram with tomosynthesis Imaging Routine Breast cancer screening by mammogram Expected: 03/25/2023, Expires: 05/23/2024 [facility] Comment on above: Expected: 03/25/2023, Expires: Start: 03-25-2023 Depression Monitoring Depression Monitoring [facility] Start: 03-25-2023 Depresssion Monitoring Depresssion Monitoring [facility] Start: 03-25-2023 End: 03-25-2024 Digoxin level Digoxin level Lab Routine Anticoagulant long-term use Expected: 03/25/2023 (Approximate), Expires: 03/25/2024 [facility] Comment on above: Expected: 03/25/2023 (Approximate), Expi res: 03/25/2024 Start: 03-25-2023 End: 03-25-2024 Lipid 1996 panel - Serum or Plasma Lipid panel Lab Routine Hypercholesteremia Expected: 03/25/2023 (Approximate), Expires: 03/25/2024 [facility] Comment on above: Expected: 03/25/2023 (Approximate), Expi res: 03/25/2024 Start: 03-25-2023 End: 03-25-2024 Thyrotropin [Units/volume] in Serum or Plasma TSH Lab Routine Hypercholesteremia Expected: 03/25/2023 (Approximate), Expires: 03/25/2024 [facility] Comment on above: Expected: 03/25/2023 (Approximate), Expi res: 03/25/2024 Start: 03-25-2023 End: 03-25-2023 Patient encounter procedure [facility] Start: 03-24-2023 Creatinine measurement Creatinine Level [facility] Start: 03-24-2023 Diabetes mellitus screening Diabetes Screening [facility] Start: 03-24-2023 Potassium measurement Potassium Level [facility] Start: 03-15-2023 Advance Directive Discussion Advance Directive Discussion [facility] Start: 03-15-2023 Depression Assessment Depression Assessment [facility] Start: 03-15-2023 Medicare Advantage Annual Wellness Visit Medicare Advantage Annual Wellness Visit [facility] Start: 12-22-2022 End: 12-22-2022 Patient encounter procedure 12/22/2022 2:45 PM EDT Office Visit [facility] [address] [place] [address] Chelo Huitron, [employer] - FINAL ASSEMBLY INSPECTOR [address] [place] [address] [facility] Start: 11-13-2022 Covid-19 Vaccine ( season) Covid-19 Vaccine () [facility] Start: 11-13-2022 Influenza vaccination Influenza Vaccine (#1) [facility] Start: 09-22-2022 End: 09-23-2023 CBC W Auto Differential panel - Blood CBC auto differential Lab Routine Essential hypertension Expected: 09/22/2022 (Approximate), Expires: 09/23/2023 [facility] Work Phone: Comment on above: Expected: 09/22/2022 (Approximate), Expi res: 09/23/2023 Start: 09-22-2022 End: 09-23-2023 Comprehensive metabolic 1998 panel - Serum or Plasma Comprehensive metabolic panel Lab Routine Essential hypertension Expected: 09/22/2022 (Approximate), Expires: 09/23/2023 [facility] Comment on above: Expected: 09/22/2022 (Approximate), Expi res: 09/23/2023 Start: 09-22-2022 End: 09-23-2023 Lipid 1996 panel - Serum or Plasma Lipid panel Lab Routine Hypercholesteremia Expected: 09/22/2022 (Approximate), Expires: 09/23/2023 [facility] Comment on above: Expected: 09/22/2022 (Approximate), Expi res: 09/23/2023 Start: 09-22-2022 End: 11-24-2023 MG Breast - bilateral Screening Bilateral screening mammogram Imaging Routine Breast cancer screening by mammogram Expected: 09/22/2022, Expires: 11/24/2023 [facility] Comment on above: Expected: 09/22/2022, Expires: Start: 09-22-2022 End: 09-23-2023 Thyrotropin [Units/volume] in Serum or Plasma TSH Lab Routine Longstanding persistent atrial fibrillation (CMS/HCC) (HCC) Expected: 09/22/2022 (Approximate), Expires: 09/23/2023 [facility] Comment on above: Expected: 09/22/2022 (Approximate), Expi res: 09/23/2023 Start: 09-22-2022 End: 09-22-2022 Patient encounter procedure [facility] Start: 07-02-2022 Annual Wellness Visit (AWV) Annual Wellness Visit (AWV) [facility] Start: 07-02-2022 Screening for malignant neoplasm of breast Mammogram [facility] Start: 07-01-2022 Creatinine measurement [facility] Start: 07-01-2022 Depression Monitoring Depression Monitoring [facility] Start: 07-01-2022 Lipid panel Lipids [facility] Start: 07-01-2022 Potassium [Moles/volume] in Serum or Plasma Potassium [facility] Start: 07-01-2022 Potassium measurement Potassium Level [facility] Start: 06-15-2022 End: 06-15-2022 Patient encounter procedure 06/15/2022 Office Visit Cardiology Benita Moon MD [address] [place] [address] [facility] Start: 06-08-2022 End: 06-08-2022 Patient encounter procedure 06/08/2022 Office Visit Cardiology Benita Moon MD [address] [place] [address] [facility] Start: 03-30-2022 End: 03-30-2022 Patient encounter procedure 03/30/2022 Office Visit Cardiology Benita Moon MD [address] [place] [address] [facility] Start: 03-24-2022 End: 03-24-2023 CBC W Auto Differential panel - Blood CBC auto differential Lab Routine Essential hypertension Expected: 03/24/2022 (Approximate), Expires: 03/24/2023 [facility] Comment on above: Expected: 03/24/2022 (Approximate), Expi res: 03/24/2023 Start: 03-24-2022 End: 03-24-2023 Comprehensive metabolic 1998 panel - Serum or Plasma Comprehensive metabolic panel Lab Routine Essential hypertension Expected: 03/24/2022 (Approximate), Expires: 03/24/2023 [facility] Comment on above: Expected: 03/24/2022 (Approximate), Expi res: 03/24/2023 Start: 03-24-2022 End: 03-24-2023 Hemoglobin A1c/Hemoglobin.total in Blood Hemoglobin A1c Lab Routine Hyperglycemia Expected: 03/24/2022 (Approximate), Expires: 03/24/2023 [facility] Comment on above: Expected: 03/24/2022 (Approximate), Expi res: 03/24/2023 Start: 03-24-2022 End: 03-24-2023 Lipid 1996 panel - Serum or Plasma Lipid panel Lab Routine Hypercholesteremia Expected: 03/24/2022 (Approximate), Expires: 03/24/2023 [facility] Comment on above: Expected: 03/24/2022 (Approximate), Expi res: 03/24/2023 Start: 03-24-2022 End: 03-24-2023 XR Knee - left 4 Views XR knee 4+ views left Imaging Routine Chronic pain of left knee Expected: 03/24/2022, Expires: 03/24/2023 [facility] Work Phone: Comment on above: Expected: 03/24/2022, Expires: Start: 03-15-2022 Advance Directive Discussion Advance Directive Discussion [facility] Start: 03-15-2022 Depression Assessment Depression Assessment [facility] Start: 02-13-2022 End: 02-13-2022 Patient encounter procedure 02/13/2022 Office Visit Family Medicine Kory Ibarra, DO [address] [place] [address] [facility] Start: 01-29-2022 End: 01-29-2022 Patient encounter procedure 01/29/2022 Office Visit Breast Clinic / Breast Center Laura Yang, [employer] - FINAL ASSEMBLY INSPECTOR [address] [place] [address] [facility] Start: 01-27-2022 End: 01-27-2022 Patient encounter procedure 01/27/2022 Appointment Radiology [facility] Start: 01-27-2022 Blood chemistry [facility] Work Phone: Start: 01-26-2022 Blood chemistry [facility] Work Phone: Start: 01-25-2022 Blood chemistry [facility] Work Phone: Start: 01-24-2022 Blood chemistry [facility] Work Phone: Start: 01-23-2022 Blood chemistry [facility] Work Phone: Start: 01-22-2022 Patient discharge [facility] Work Phone: Start: 01-19-2022 Respiratory secretion precautions [facility] Work Phone: Start: 01-19-2022 End: 01-19-2022 Referral to service [facility] Work Phone: Start: 01-19-2022 Following clinical pathway protocol [facility] Work Phone: Start: 01-19-2022 Assessment of risk of venous thromboembolism [facility] Work Phone: Start: 01-19-2022 Care regimes management [facility] Work Phone: Start: 01-19-2022 Catheterization of vein [facility] Work Phone: Start: 01-19-2022 Incentive spirometry [facility] Work Phone: Start: 01-19-2022 Inhalation therapy procedure [facility] Work Phone: Start: 01-19-2022 Insertion of catheter into peripheral vein [facility] Work Phone: Start: 01-19-2022 Measuring intake and output [facility] Work Phone: Start: 01-19-2022 Oxygen therapy [facility] Work Phone: Start: 01-19-2022 Physiotherapy of chest [facility] Work Phone: Start: 01-19-2022 Providing care according to standard [facility] Work Phone: Start: 01-19-2022 Provision of activity privileges [facility] Work Phone: Start: 01-18-2022 Legionella pneumophila Ag [Presence] in Urine [facility] Work Phone: Start: 01-18-2022 Streptococcus pneumoniae antigen assay [facility] Work Phone: Start: 01-18-2022 End: 01-19-2022 [facility] Work Phone: Start: 01-18-2022 Taking nasal swab [facility] Work Phone: Start: 01-18-2022 Admission procedure [facility] Work Phone: Start: 01-18-2022 [facility] Work Phone: Start: 01-06-2022 COVID-19 Vaccine (3 - Booster for Moderna series) COVID-19 Vaccine (3 - Booster for Moderna series) [facility] Comment on above: Postponed from 01/14/2021 (Patient Refus ed) Start: 12-31-2021 End: 12-31-2021 Patient encounter procedure 12/31/2021 Office Visit Family Medicine Kory Ibarra, DO [address] [place] [id number] [facility] Start: 12-30-2021 Creatinine measurement Creatinine monitoring [facility] Work Phone: Start: 12-30-2021 Lipid panel Lipid screen [facility] Work Phone: Start: 12-30-2021 Potassium monitoring Potassium monitoring [facility] Work Phone: Start: 11-26-2021 Screening for malignant neoplasm of breast Breast cancer screen [facility], [place] Start: 11-13-2021 Influenza vaccination Flu vaccine (#1) [facility] Start: 10-28-2021 End: 10-28-2021 Patient encounter procedure 10/28/2021 Office Visit Cardiology Chelo Huitron, [employer] - FINAL ASSEMBLY INSPECTOR [address] [place] [address] [facility] Start: 10-27-2021 End: 10-27-2021 ambulatory 10/27/2021 Anti-coag visit Pharmacy [facility] Anticoagulation Management Service Start: 10-06-2021 End: 10-06-2021 Patient encounter procedure 10/06/2021 Appointment Echocardiography Benita Moon MD [address] [place] [address] [address] [place], [place] [id number] [facility] Start: 08-14-2021 End: 08-14-2021 Patient encounter procedure [facility] Start: 08-06-2021 End: 08-06-2021 Patient encounter procedure 08/06/2021 Office Visit Family Medicine Kory Ibarra, DO [address] [place] [address] [facility] Start: 08-05-2021 End: 08-05-2021 Patient encounter procedure 08/05/2021 Office Visit Cardiology Chelo Huitron, [employer]NAGER - FINAL ASSEMBLY INSPECTOR [address] [facility] [place] [address] [facility] Start: 07-09-2021 End: 07-09-2021 Patient encounter procedure 07/09/2021 Office Visit Cardiology Chelo Huitron, [employer]NAGER - FINAL ASSEMBLY INSPECTOR [address] [place] [address] [facility] Start: 06-18-2021 End: 06-18-2021 Patient encounter procedure 06/18/2021 Office Visit Family Medicine Kory Ibarra DO [address] [place] [address] [phone] [facility] Start: 05-21-2021 Annual Wellness Visit (AWV) Annual Wellness Visit (AWV) [facility] Work Phone: Start: 05-20-2021 Creatinine measurement Creatinine monitoring [facility] Work Phone: Start: 05-20-2021 Lipid panel Lipid screen [facility] Work Phone: Start: 05-20-2021 Potassium monitoring Potassium monitoring [facility] Work Phone: Start: 02-04-2021 Shingles Vaccine (2 of 2) Shingles Vaccine (2 of 2) [facility] Start: 01-20-2021 End: 01-20-2021 Patient encounter procedure 01/20/2021 Appointment Radiology [facility] Start: 01-14-2021 COVID-19 Vaccine (3 - Booster for Moderna series) COVID-19 Vaccine (3 - Booster for Moderna series) [facility] Start: 12-30-2020 End: 12-30-2020 Patient encounter procedure 12/30/2020 Office Visit Cardiology Ino Ly MD [facility] [place] [address] [phone] [facility] Start: 12-25-2020 End: 12-25-2020 Patient encounter procedure 12/25/2020 Appointment Radiology [facility] Start: 12-18-2020 End: 12-18-2020 Patient encounter procedure 12/18/2020 Office Visit Family Medicine Kory Ibarra, DO [address] [place] [address] [phone] [facility] Start: 12-07-2020 Breast cancer screen Breast cancer screen [facility], [place] Start: 12-07-2020 Screening for malignant neoplasm of breast Breast cancer screen [place], [place] Start: 11-29-2020 Creatinine measurement Creatinine monitoring [facility], [place] Start: 11-29-2020 Lipid panel Lipid screen [place] Start: 11-29-2020 Potassium monitoring Potassium monitoring [place] Start: 11-14-2020 End: 11-14-2020 Office Visit 11/14/2020 Office Visit Family Medicine Kory Ibarra, DO [address] [place] [address] [phone] [facility] Start: 11-13-2020 Influenza vaccination Flu vaccine (#1) [facility] Work Phone: Start: 10-09-2020 COVID-19 Vaccine (3 - Booster for Moderna series) COVID-19 Vaccine (3 - Booster for Moderna series) [facility] Start: 10-09-2020 COVID-19 Vaccine (3 - Moderna series) COVID-19 Vaccine (3 - Moderna series) [facility] Start: 06-25-2020 End: 06-25-2020 Office Visit 06/25/2020 Office Visit Cardiology Chelo Huitron, [employer] - FINAL ASSEMBLY INSPECTOR [address] [facility] [place] [address] [facility] Start: 05-29-2020 End: 05-29-2020 Office Visit 05/29/2020 Office Visit Family Medicine Kory Ibarra, DO [address] [place] [address] [phone] [facility] Start: 05-20-2020 End: 05-20-2020 Office Visit 05/20/2020 Office Visit Family Koyr Hunt, DO [address] [place], [place] [id number] [facility] Family Medicine Start: 05-18-2020 Creatinine measurement Creatinine monitoring [place], [place] Start: 05-18-2020 Lipid panel Lipid screen [place], [place] Start: 05-18-2020 Potassium monitoring Potassium monitoring [facility] Start: 05-17-2020 Annual Wellness Visit (AWV) Annual Wellness Visit (AWV) [facility] [place] Start: 12-14-2019 End: 12-14-2019 Office Visit 12/14/2019 Office Visit Cardiology Ino Ly MD [address] [place] [address] [phone] [facility] Start: 11-30-2019 End: 11-30-2019 Office Visit 11/30/2019 Office Visit Family Medicine Kory Ibarra, DO [address] [place] [address] [phone] [facility] Start: 11-24-2019 Mammography Mammogram Screening [facility] Start: 11-24-2019 Screening for malignant neoplasm of breast Mammogram Screening [facility] Start: 11-17-2019 End: 11-17-2019 Office Visit 11/17/2019 Office Visit Family Medicine Kory Ibarra, DO [address] [place] [address] [phone] [facility] Start: 11-14-2019 [facility] [place] Start: 11-07-2019 End: 11-07-2019 Appointment 11/07/2019 Appointment Radiology [facility] Start: 10-02-2019 End: 10-02-2019 Appointment 10/02/2019 Appointment Radiology [facility] Start: 06-08-2019 End: 06-08-2019 Appointment 06/08/2019 Appointment Radiology [facility] Start: 05-12-2019 End: 05-12-2019 Office Visit 05/12/2019 Office Visit Family Medicine Kory Ibarra, DO [address] [place] [address] [phone] [facility] Start: 05-10-2019 Creatinine monitoring Creatinine monitoring [facility] [place] Start: 05-10-2019 Lipid screen Lipid [place] Start: 05-10-2019 Potassium monitoring Potassium [place] Start: 04-25-2019 End: 04-25-2019 Office Visit 04/25/2019 Office Visit Cardiology Ino Ly MD [address] [place] [place] [address] [phone] [facility] Start: 12-05-2018 End: 12-05-2018 Office Visit 12/05/2018 Office Visit Family Medicine Kory Ibarra, DO [address] [place] [address] [phone] [facility] Start: 11-13-2018 Influenza vaccination Flu vaccine (#1) [place] Start: 11-09-2018 End: 11-09-2018 Office Visit 11/09/2018 Office Visit Family Medicine Kory Ibarra, DO [address] [place] [address] [phone] [facility] Start: 10-12-2018 Breast cancer screen Breast cancer screen [place] Start: 09-01-2018 Annual Wellness Visit (AWV) Annual Wellness Visit (AWV) [place] Start: 2016 Bone Density Screening Bone Density Screening [facility] Start: 2016 DEXA (modify frequency per FRAX score) DEXA (modify frequency per FRAX score) [place] Start: 2016 Screening for osteoporosis Bone Density Screening [facility] Start: 2014 Annual Wellness Visit (AWV) Annual Wellness Visit (AWV) [place] Start: 2011 RSV Immunization aged 60 or older (1 - 1-dose 60+ series) RSV Immunization aged 60 or older (1 - 1-dose 60+ series) [facility] Start: 2011 RSV Immunization for Adults (1 - Risk 60-74 years 1-dose series) RSV Immunization for Adults (1 - Risk 60-74 years 1-dose series) [facility] Start: 2011 RSV Vaccine (1 - 1-dose 60+ series) RSV Vaccine (1 - 1-dose 60+ series) [facility] Start: 2011 [facility] Start: 2006 Screening for osteoporosis DEXA (modify frequency per FRAX score) [facility] Start: 2001 Shingles Vaccine (1 of 2) Shingles Vaccine (1 of 2) [place] Start: 1996 Cologuard (FIT-DNA) Cologuard (FIT-DNA) [facility] Start: 1996 Colonoscopy Colonoscopy [facility] Start: 1996 Colorectal Cancer Screening Colorectal Cancer Screening [facility] Start: [address] Colonography [facility] Start: 1996 Diabetes Screening Diabetes Screening [facility] Start: 1996 Fecal Occult Blood Fecal Occult Blood [facility] Start: 1996 Lipid 1996 panel - Serum or Plasma Lipid Screening [facility] Start: 1996 Screening for malignant neoplasm of colon [facility] Start: 1996 Sigmoidoscopy Sigmoidoscopy [facility] Start: 1991 Diabetes screen Diabetes screen [place], [place] Start: 1986 Diabetes screen Diabetes screen [facility] Start: 1970 DTaP/Tdap/Td Vaccines (1 - Tdap) DTaP/Tdap/Td Vaccines (1 - Tdap) [facility] Start: 1970 Urine microalbumin profile DTaP,Tdap,Td Vaccine (1 - Tdap) [facility] Start: 1970 [facility] Start: 1969 Anxiety Screening Anxiety Screening [facility] Start: 1969 Depression Screening Depression Screening [facility] Start: 1969 Diabetes mellitus screening Diabetes Screening [facility] Start: 1969 Hepatitis C screening [facility] Start: 1969 Hepatitis C Screening Hepatitis C Screening [facility] Start: 1967 COVID-19 Vaccine (1 of 2) COVID-19 Vaccine (1 of 2) [facility] Work Phone: Start: 1963 COVID-19 Vaccine (1) COVID-19 Vaccine (1) [facility] Work Phone: Start: 1963 Depresssion Monitoring Depresssion Monitoring [facility] Start: 1950 Echocardiography Echocardiogram [facility] Start: 1950 Hepatitis B Vaccines (1 of 3 - 3-dose series) Hepatitis B Vaccines (1 of 3 - 3-dose series) [facility] Start: 1950 Hepatitis C screen Hepatitis C screen [facility], [place] Start: 1951 Hepatitis C screening Hepatitis C screen [facility] [place] Start: 1950 Medicare Advantage Annual Wellness Visit (AWV) Medicare Advantage Annual Wellness Visit (AWV) [facility] Start: 1950 Screening for malignant neoplasm of colon [facility] Start: 1950 Screening for osteoporosis [facility] Bone marrow exam [facility] Work Phone: Comment on above: Release Upon Ordering for 1 Occurrences starting 12/20/2024, 1 completed End: 11-16-2024 CT Abdomen and Pelvis WO and W contrast IV [facility] Work Phone: Comment on above: Once for 1 Occurrences starting 11/17/19 until 11/16/2024 Hemoglobin A1c/Hemoglobin.total in Blood [facility] Work Phone: End: 05-02-2024 Hemoglobin.gastrointest inal.lower [Presence] in Stool by Immunoassay --1st specimen [facility] Work Phone: IgG, IgA, IgM IgG, IgA, IgM La b Routine Abnormal protein electrophoresis Ordered: 06/23/2024 [facility] Comment on above: Ordered: 06/23/2024 Immunofixation Electrophoresis Immun[facility]ix[facility] Electrophoresis Lab Routine Abnormal protein electrophoresis Ordered: 06/23/2024 [facility] Comment on above: Ordered: 06/23/2024 Immunofixation Electrophoresis Immunof[facility] Electrophoresis Lab Routine Leukocytosis, unspecified type Anemia, unspecified type Thrombocytopenia (HCC) 11/09/2024 3:08 PM EDT [facility] Immunofixation Electrophoresis Immunofixation Electrophoresis Lab Routine Leukocytosis, unspecified type Anemia, unspecified type Thrombocytopenia (HCC) 11/09/2024 3:08 PM EDT [facility] Immunoglobulins, IgG , IgA, IgM Immunoglobulins, IgG, IgA, IgM Lab Routine Abnormal protein electrophoresis 06/30/2024 4:49 PM EDT [facility] K/L Qnt Free Light Chains with Ratio (BKR QUEST) K/L Qnt Free Light Chains with Ratio (BKR QUEST) Lab Routine Leukocytosis, unspecified type Anemia, unspecified type Thrombocytopenia (HCC) 11/09/2024 3:08 PM EDT [facility] Legionella pneumophi la Ag [Presence] in Urine [facility] End: 07-02-2021 MG Cancer Risk Survey [facility] Work Phone: Comment on above: Once for 1 Occurrences starting 07/03/19 until 07/02/2021 OUTSIDE PROCEDURE SCAN OUTSIDE P ROCEDURE SCAN Procedures Ordered: 07/22/2022 [facility] Comment on above: Ordered: 07/22/2022 OUTSIDE PROCEDURE SCAN OUTSIDE P ROCEDURE SCAN Procedures Ordered: 04/18/2024 [facility] Comment on above: Ordered: 04/18/2024 OUTSIDE PROCEDURE SCAN OUTSIDE P ROCEDURE SCAN Procedures Ordered: 04/27/2024 [facility] Comment on above: Ordered: 04/27/2024 OUTSIDE PROCEDURE SCAN OUTSIDE P ROCEDURE SCAN Procedures Ordered: 08/05/2024 [facility] Comment on above: Ordered: 08/05/2024 Patient Education Heart Failure Flare Up Signs Heart Failure: Tracking Your Weight Heart Failure Make Changes Diet Heart Failure Dc Heart Failure Care [facility] Work Phone: Patient referral [facility] Work Phone: End: 05-04-2024 Peripheral blood smear [facility] End: 05-04-2024 Peripheral Blood Smear [facility] Peripheral blood smear [facility] Peripheral Blood Smear [facility] Protein [Mass/volume ] in Serum or Plasma Protein, total Lab Routine Normochromic normocytic anemia Ordered: 06/19/2024 [facility] Comment on above: Ordered: 06/19/2024 Protein, Total and Protein Electrophoresis [facility] Comment on above: Ordered: 06/19/2024 Respiratory pathogen s DNA and RNA 12b panel - Unspecified specimen by STEPHANIE with probe detection [facility] Work Phone: SARS-CoV-2 (COVID-19 ) Ag [Presence] in Respiratory specimen by Rapid immunoassay [facility] End: 11-23-2018 Screening digital breast tomosynthesis bi [facility] Digital Screen Bilateral Imaging Routine Once for 1 Occurrences starting 11/23/2018 until 11/23/2018 [facility] [place] Comment on above: Once for 1 Occurrences starting 11/24/19 19 until 11/23/2018 Screening digital breast tomosynthesis bi Luna Ernst Digital Screen Bilateral Imaging Routine 11/23/2018 10:54 AM EDT [facility] [place] Serum Electrophoresis [facility] Comment on above: Ordered: 06/19/2024 Serum Electrophoresis Serum Elec trophoresis Lab Routine Leukocytosis, unspecified type Anemia, unspecified type Thrombocytopenia (HCC) 11/09/2024 3:08 PM EDT [facility] End: 07-24-2021 Surgical Pathology [facility] Work Phone: Comment on above: Once for 1 Occurrences starting 07/25/19 22 until 07/24/2021 Troponin T.cardiac [Mass/volume] in Serum or Plasma by High sensitivity method [facility] Troponin T.cardiac [Mass/volume] in Serum or Plasma by High sensitivity method [facility] End: 07-02-2021 US BREAST LIMITED RIGHT [facility] Work Phone: Comment on above: Once for 1 Occurrences starting 07/03/19 22 until 07/02/2021 Immunizations Immunization Date Immunization Notes Care Provider Priyanka villagran 02-16-2024 influenza vaccine A& B surf ant adjuvanted (Fluad) HIGH-DOSE injection 0.5 mL Brina Rocha DO Work Phone: [facility] 12-21-2023 Seasonal trivalent influenza vaccine, adjuvanted, preservative free Kory Ibarra DO Work Phone: [facility] 12-21-2023 influenza virus vacc ine, unspecified formulation Kory Ibarra DO Work Phone: [facility] 01-30-2023 Influenza, High-dose Seasonal, Quadrivalent, Preservative Free Kory Ibarra DO Work Phone: [facility] 01-30-2023 influenza virus vacc ine, unspecified formulation Benita Moon MD Work Phone: [facility] 01-16-2022 Influenza, High-dose Seasonal, Quadrivalent, Preservative Free Chelo Huitron [employer]NAGER - FINAL ASSEMBLY INSPECTOR Work Phone: [facility] 01-16-2022 zoster vaccine recombinant Chelo Muhammadteraisabell [employer] MANAGER - FINAL ASSEMBLY INSPECTOR Work Phone: [facility] 01-16-2022 influenza virus vacc ine, unspecified formulation Kory Jimeneza DO Work Phone: [facility] 12-18-2020 Influenza, High-dose , Quadv, 65 yrs +, IM (Fluzone) Ino Ly MD Work Phone: [facility] Work Phone: 12-10-2020 zoster vaccine recombinant Kory Ibarra DO Work Phone: [facility] Work Phone: 08-14-2020 COVID-19, Moderna, Primary or Immunocompromised, PF, 100mcg/0.5mL Kory Bellella DO Work Phone: [facility] Work Phone: 07-17-2020 COVID-19, Moderna, Primary or Immunocompromised, PF, 100mcg/0.5mL Kory Bellella DO Work Phone: [facility] Work Phone: 11-30-2019 Influenza, High-dose , Quadv, 65 yrs +, IM (Fluzone) Ino Ly [facility] 01-06-2019 Seasonal trivalent influenza vaccine, adjuvanted, preservative free Chelo Huitron [employer] MANAGER - FINAL ASSEMBLY INSPECTOR Work Phone: [facility] 05-12-2018 pneumococcal polysaccharide vaccine, 23 valent Ino Ly [facility] 01-03-2018 influenza, high dose seasonal, preservative-free Ino Ly [facility] 01-05-2017 pneumococcal conjuga te vaccine, 13 valent Kory Petrilla DO Work Phone: [facility] Work Phone: 01-05-2017 Seasonal trivalent influenza vaccine, adjuvanted, preservative free Chelo Huitron [employer] MANAGER - FINAL ASSEMBLY INSPECTOR Work Phone: [facility] 12-13-2016 influenza, high dose seasonal, preservative-free [facility] 12-13-2016 pneumococcal conjuga te vaccine, 13 valent [facility] [place] 08-03-2016 pneumococcal conjuga te vaccine, 13 valent Ino Wah[place]um [facility] 02-10-2016 influenza, injectabl e, quadrivalent, preservative free Dr. Davis Irene DO Work Phone: [facility] 02-10-2016 influenza, seasonal, injectable [facility] Work Phone: 01-17-2016 influenza virus vacc ine, unspecified formulation Kory Bellerajwinder DO Work Phone: [facility] Work Phone: 01-17-2016 influenza, injectabl e, quadrivalent, contains preservative [facility] 12-13-2013 influenza virus vacc ine, unspecified formulation [facility] , [place] 12-13-2013 influenza, seasonal, injectable Chelo Muhammadmaryann [employer]NA[employer] - FINAL ASSEMBLY INSPECTOR Work Phone: [facility] 01-30-2009 novel influenza-H1N1 -09, preservative-free, injectable Chelo Agueroisabell [employer]NA[employer] - FINAL ASSEMBLY INSPECTOR Work Phone: [facility] Payers Date Payer Category Payer Self-pay [id number] 2022 Medicare (Managed Care) [facility] DUAL COMPLETE HMO POS SNP [id number] 2022 Medicare HMO [id number] 2022 Unknown [id number] 2021 Medicare [id number]. [id number] 2018 Medicaid [id number]. [id number] 2018 Medicare HUMANA MEDICARE HUMANA CHOICE-PPO MEDICARE xxxxxxxxx 2018-Present [address] [address] [place] [address] xxxxxxxxx [id number] 2018 Medicare [id number]. [id number] 2018 Medicaid [id number] 2016 Unknown [id number] 1951 Unknown [id number] 2.840.1.036476.3.579.2. 1950 Unknown [id number] .0.1.293768.3.579.2. 1951 Unknown [id number] 2.840.1.407270.3.579.2. 1951 Unknown [id number] 2.16840.1.174418.3.579.2 1951 Unknown [id number] 2.840.1.829120.3.579.2. 1951 Unknown [id number] 2.840.1.983856.3.579.2 1951 Unknown [id number] 2.16840.1.837571.3.579.2. 668 1951 Unknown [id number] 2..840.1.770904.3.579.2. 668 1951 Unknown [id number] 2..840.1.396677.3.579.2. 668 1951 Unknown [id number] 2.840.1.582818.3.579.2. 8 Medicare MEDICARE PART A B [id number] Private Health Insurance Private Health Insurance AETNA SR SUPPLEM ENT INS [id number] Unknown Unknown COMMERCIAL OTHER [id number] Unknown [id number] 2.840.1.085827.3.579.2. 462 Unknown [id number] 2.840.1.731567.3.579.2. 462 Unknown [id number] 2.840.1.535940.3.579.2. 462 Unknown [id number] 2.840.1.456454.3.579.2. 462 Unknown [id number] 2.840.1.722030.3.579.2. 462 Unknown [id number] 2.840.1.661938.3.579.2. 462 Unknown [id number] 2.840.1.615789.3.579.2. 462 Unknown [id number] 2.840.1.878479.3.579.2. 462 Unknown [id number] 2.840.1.524813.3.579.2. 462 Unknown [id number] 2.840.1.433228.3.579.2. 462 Unknown [id number] 2.16.840.1.191701.3.579.2. 462 Unknown [id number] 2.16.840.1.053256.3.579.2. 462 Unknown [id number] 2.16.840.1.705021.3.579.2. 462 Unknown [id number] 2.16.840.1.017538.3.579.2. 462 Unknown [id number] 2.16.840.1.213521.3.579.2. 462 Unknown [id number] 2.16.840.1.624143.3.579.2. 462 Unknown [id number] 2.16.840.1.009268.3.579.2. 462 Social History Date Type Detail Facility Start: 12-11-2018 End: 08-25-2024 Tobacco smoking status NHIS Never smoker [place] Start: 12-11-2018 End: 01-10-2025 Alcohol intake Current non-drinker of alcohol (finding) [place] Start: 11-09-2018 End: 12-18-2020 History SDOH Alcohol Frequency 1 [place] Start: 11-09-2018 End: 07-01-2021 History SDOH Social Connections Phone 3 [place] Start: 11-09-2018 History SDOH Social Connections [employer] 2 [place] Start: 11-09-2018 History SDOH [employer] Meetings 98 [place] Start: 11-09-2018 History SDOH Financial 4 [place] Start: 10-08-2016 Alcohol Comment rare [place], [place] Start: 1950 Sex Assigned At Not on file [place] Start: 05-17-2019 End: 12-29-2022 Tobacco use and exposure Never used [place] Start: 11-09-2018 End: 04-28-2024 Alcohol intake No [place] Start: 12-18-2020 History SDOH Financial 5 [facility] Work Phone: Start: 01-18-2022 End: 01-19-2022 Tobacco smoking status NHIS Unknown if ever smoked [facility] Work Phone: Start: 07-14-2016 None [facility] Start: 07-14-2016 With Family [facility] Start: 10-27-2013 Non-smoker [facility] Start: 1950 Sex Assigned At Female [facility] Start: 03-14-2022 End: 09-22-2022 Exposure to SARS-CoV-2 (event) Not sure [facility] Start: 06-15-2022 End: 04-28-2024 History of Social function [facility] National Score (1-10 0), lower number is lower risk Not on file [facility] Start: 10-13-2021 End: 06-05-2024 Sex Female (finding) [facility] How often to you hav e a drink containing alcohol? Never [facility] Has the [employer], or [employer] threatened to shut off services in your home in past 12Mo No [facility] [employer] (I/We) worried whemegha er (my/our) food would run out before (I/we) got money to buy more. Never true [facility] [employer] Goals Date Patient Goal Desired Activity /State [...] Assessment Result Facility 08-28-2024 Functional status Ambulates [facility] Work Phone: 08-28-2024 Functional status Tolerates Activity Fair [facility] Work Phone: 06-19-2024 Patient Health Questionnaire 2 item (PHQ-2) [Reported] [facility] 06-05-2024 Functional status Chair [facility] Work Phone: 01-22-2022 Functional status Activity Abili ty Independent [facility] Work Phone: 01-22-2022 Functional status Ambulates [facility] Work Phone: [facility] Mental Status Date Assessment Result Facility 08-28-2024 Cognitive function Awake;Alert;A ppropriate;Fol lows Commands [facility] Work Phone: 08-28-2024 Cognitive function Voice/Name [facility] Work Phone: 06-05-2024 Cognitive function Voice/Name [facility] Work Phone: 01-21-2022 Cognitive function Voice/Name [facility] Work Phone: Clinical Notes 03-24-2022 to [...] in remission Essential hypertension Cor pulmonale, chronic ([facility]) 02/17/2024 Thrombocytopenia 12/2023 COPD (chronic obstructive pulmonary disease) ([facility]) 09/22/2022 Gallstone 2018 Depression 07/01/2021 Heart failure with improved ejection fraction (HFimpEF) ([facility]) 06/25/2020 Morbidly obese ([facility]) 10/25/2018 History of pulmonary embolism 07/20/2016 Hypercholesteremia 04/26/2016 Asthma ([facility]) 01/31/2016 Venous insufficiency 01/31/2016 Anticoagulant long-term use 11/23/2014 Atrial fibrillation ([facility]) 11/23/2014 Mitral regurgitation 11/23/2014 Allergic rhinitis 11/23/2014 Pulmonary HTN ([facility]) 11/23/2014 CHRISTIANNE on CPAP 11/23/2014 Social History[3] [...] Case Report 12/20/2024 Final Value:Bone Marrow Case: [id number] Authorizing Provider: Marion Mccann DO Collected: 12/20/2024 0950 Ordering Location: [facility] CT Imaging Received: 12/20/2024 0905 Pathologist: Rachel Avery MD MPH Specimens: A) - Bone Marrow Aspirate, Left hip B) - Iliac Crest, Left, left hip C) - Bone Marrow Clot, left hip Addendum 2 12/20/2024 Final Value:MDS FISH is negative. Please see [email or web address] report [id number] for MDS Extended testing ordered by Dr. [...] prognostic impact in myeloid neoplasms. Please see [email or web address] report [id number] for Cytogenetics testing and report [id number] for MDS/CMML Profile ordered by Dr. Marion [...] CD33, CD34, CD64, CD71, CD117, HLA-DR. PHENOTYPE: XS47-xctlrapn blasts are not increased (<2%). 4% of [...] consistent with classical monocytes (see comment). Nonclassical (WU59-rlzrljzf, TM08-nuhomrfb) monocytes comprise less than 1% of the monocytes. Separate cytometric studies on the peripheral blood show classical monocytes comprising greater than 98% of circulating monocytes. COMMENT: While WHO 5ed recommends monocytes subset partitioning studies on peripheral blood, literature demonstrates that a decrease in nonclassical monocytes (less than 1.24%) in bone marrow specimens is associated with chronic myelomonocytic leukemia diagnosis (PMID: 99687374,63688310). The current specimen demonstrates both a decrease [...] characteristics determined by the clinical laboratories of [facility]. They have not been cleared by [...] on decalcified specimens. Pathologist Interpretation Location 12/20/2024 [facility], [address] [place] [address], CLIA: [id number]; Joint Commission: [id number]; CAP: [id number] Final RESULT 12/20/2024 See Comment Final Lab [...] scan. She follows with Dr. Chau at [facility]. Consider DEXA scan as well. 3) stable [...] Apply topically 2 times daily. nystatin (Mycostatin) 869786 UNIT/GM powder Apply topically 3 times daily. [...] for this visit. documented in this encounter [place] [id number] History of Present illness Narrative Hematology/Oncology Office [...] Thrombocytopenia 12/2023 COPD (chronic obstructive pulmonary disease) ([facility]) 09/22/2022 Gallstone 2018 Depression 07/01/2021 Heart failure with improved ejection fraction (HFimpEF) ([facility]) 06/25/2020 Morbidly obese ([facility]) 10/25/2018 History of pulmonary embolism 07/20/2016 Hypercholesteremia 04/26/2016 Asthma ([facility]) 01/31/2016 Venous insufficiency 01/31/2016 Anticoagulant long-term use 11/23/2014 Atrial fibrillation ([facility]) 11/23/2014 Mitral regurgitation 11/23/2014 Allergic rhinitis 11/23/2014 Pulmonary HTN ([facility]) 11/23/2014 CHRISTIANNE on CPAP 11/23/2014 Social History[3] [...] Case Report 12/20/2024 Final Value:Bone Marrow Case: [id number] Authorizing Provider: Marion Mccann DO Collected: 12/20/2024 0950 Ordering Location: [facility] CT Imaging Received: 12/20/2024 0905 Pathologist: Rachel Avery MD MPH Specimens: A) - Bone Marrow Aspirate, Left hip B) - Iliac Crest, Left, left hip C) - Bone Marrow Clot, left hip Addendum 2 12/20/2024 Final Value:MDS FISH is negative. Please see [email or web address] report [id number] for MDS Extended testing ordered by Dr. [...] prognostic impact in myeloid neoplasms. Please see [employer] report [id number] for Cytogenetics testing and report [id number] for MDS/CMML Profile ordered by Dr. Marion [...] CD33, CD34, CD64, CD71, CD117, HLA-DR. PHENOTYPE: DA78-rniwmtja blasts are not increased (<2%). 4% of [...] consistent with classical monocytes (see comment). Nonclassical (SM04-idpqiovc, ZU23-jxqugxcu) monocytes comprise less than 1% of the monocytes. Separate cytometric studies on the peripheral blood show classical monocytes comprising greater than 98% of circulating monocytes. COMMENT: While WHO 5ed recommends monocytes subset partitioning studies on peripheral blood, literature demonstrates that a decrease in nonclassical monocytes (less than 1.24%) in bone marrow specimens is associated with chronic myelomonocytic leukemia diagnosis (PMID: 71457373,39798171). The current specimen demonstrates both a decrease [...] characteristics determined by the clinical laboratories of [facility]. They have not been cleared by [...] on decalcified specimens. Pathologist Interpretation Location 12/20/2024 [facility], [address] [place] [address], CLIA: [id number]; Joint Commission: [id number]; CAP: [id number] Final RESULT 12/20/2024 See Comment Final Lab [...] Apply topically 2 times daily. nystatin (Mycostatin) 470957 UNIT/GM powder Apply topically 3 times daily. [...] for this visit. documented in this encounter [facility] 01-01-2025 Telephone encounter Note [facility] AM 12/06/24 NOV AM 01/09/25 Labs 12/19/24 Rx Pending [facility] 01-01-2025 Miscellaneous Notes [facility] AM 12/06/24 NOV AM 01/09/25 Labs 12/19/24 Rx Pending documented in this encounter [facility] 01-01-2025 Telephone encounter Note Order re faxed with new code [facility] 01-01-2025 Miscellaneous Notes Order re faxed with new code Name of caller: Miguel Contact phone number: [phone] Relationship to Patient: Yumiko Provider: Fred Practice: Jillian Chief Complaint/Reason for Call: Needs DX code CHRISTIANNE and not COPD code. Please re fax order [phone]. Best time of day caller can be reached: Any Patient advised that office/PCP has 24-48 business hours to return their call: Yes Order re faxed with Dx code Name of caller: Miguel Contact phone number: [phone] Relationship to Patient: [facility] bessy [employer] Provider: Dr. Ibarra Practice: [facility] Chief Complaint/Reason for Call: Miguel states she is missing the patient dx code on the order for her Cpap machine. Can you amend the order and re-fax it to [phone]. Please advise. Best time of day caller can be reached: Till 5:00 pm Patient advised that office/PCP has 24-48 business hours to return their call: Yes documented in this encounter [facility] 01-01-2025 Telephone encounter Note Name of caller: Miguel Contact phone number: [phone] Relationship to Patient: Yumiko Provider: Fred Practice: Jillian Chief Complaint/Reason for Call: Needs DX code CHRISTIANNE and not COPD code. Please re fax order [phone]. Best time of day caller can be reached: Any Patient advised that office/PCP has 24-48 business hours to return their call: Yes [facility] 12-28-2024 Telephone encounter Note Order re faxed with Dx code [facility] 12-27-2024 Telephone encounter Note Name of caller: Miguel Contact phone number: [phone] Relationship to Patient: Emilyluanne avitia [employer] Provider: Dr. Ibarra Practice: [facility] Chief Complaint/Reason for Call: Miguel states she is missing the patient dx code on the order for her Cpap machine. Can you amend the order and re-fax it to [phone]. Please advise. Best time of day caller can be reached: Till 5:00 pm Patient advised that office/PCP has 24-48 business hours to return their call: Yes [facility] 12-26-2024 Telephone encounter Note Not our pt [facility] 12-26-2024 Miscellaneous Notes Not our pt Name of caller: Brina Joseph Contact phone number: [phone] Relationship to Patient: [employer] Provider: Dr [...] Name of caller: Pilar Contact phone number: [phone] Relationship to Patient: [employer] Provider: Dr. Ibarra Practice: [facility] GUTHRIE Chief Complaint/Reason for Call: Pilar [facility] needs more office visit notes for patient. [facility] already received patients notes from June. [facility] will need more notes that would qualify patient for oxygen. Please advise. Best time of day caller can be reached: any Patient advised that office/PCP has 24-48 business hours to return their call: Yes documented in this encounter [facility] 12-26-2024 Telephone encounter Note Name of caller: Brina Joseph Contact phone number: [phone] Relationship to Patient: [employer] Provider: Dr Ibarra Practice: [facility] R[facility] Chief Complaint/Reason for Call: Caller stated that amended notes are fine, but patient's vitals show oxygen was 99%. Thank you. Best time of day caller can be reached: Any Patient advised that office/PCP has 24-48 business hours to return their call: No [facility] 12-25-2024 Telephone encounter Note Amended note faxed [facility] 12-20-2024 Hospital Discharge instructions Adele Soria RN [...] a call between 8am and 5pm. - [facility] Radiology - [phone] - [facility] Radiology - [phone] - For questions after hours, please call [phone] and ask for the on-call Angiography Radiologist. [...] Care Everywhere.Moderate Sedation in Adults Discharge Instructions (Peruvian)documented in this encounter [facility] 12-20-2024 Nurse Note IR Procedures: Mrs. Baker is here from [facility] for a CT guided bone marrow biopsy . The patient has verbalized understanding of the procedural instructions. Dr. Loaiza has spoken to the patient. History, allergies, medications and lab results reviewed. Informed consent has been signed. [facility] 12-20-2024 Nurse Note IR Procedures: Mrs. Baker is here from [facility] for a CT guided bone marrow biopsy . The patient has verbalized understanding of the procedural instructions. Dr. Loaiza has spoken to the patient. History, allergies, medications and lab results reviewed. Informed consent has been signed. documented in this encounter [facility] 12-20-2024 History and physical note [facility] Comprehensive PreProcedure History and Physical Name: Alta [...] in remission Essential hypertension Cor pulmonale, chronic ([facility]) 02/17/2024 Thrombocytopenia 12/2023 COPD (chronic obstructive pulmonary disease) ([facility]) 09/22/2022 Gallstone 2018 Depression 07/01/2021 Heart failure with improved ejection fraction (HFimpEF) ([facility]) 06/25/2020 Morbidly obese ([facility]) 10/25/2018 History of pulmonary embolism 07/20/2016 Hypercholesteremia 04/26/2016 Asthma ([facility]) 01/31/2016 Venous insufficiency 01/31/2016 Anticoagulant long-term use 11/23/2014 Atrial fibrillation ([facility]) 11/23/2014 Mitral regurgitation 11/23/2014 Allergic rhinitis 11/23/2014 Pulmonary HTN ([facility]) 11/23/2014 CHRISTIANNE on CPAP 11/23/2014 Surgical History[2] [...] Use Smoking Status Never Smokeless Tobacco Never [facility] Work Phone: 12-20-2024 History and physical note [facility] Comprehensive PreProcedure History and Physical Name: Alta [...] in remission Essential hypertension Cor pulmonale, chronic ([facility]) 02/17/2024 Thrombocytopenia 12/2023 COPD (chronic obstructive pulmonary disease) ([facility]) 09/22/2022 Gallstone 2018 Depression 07/01/2021 Heart failure with improved ejection fraction (HFimpEF) ([facility]) 06/25/2020 Morbidly obese ([facility]) 10/25/2018 History of pulmonary embolism 07/20/2016 Hypercholesteremia 04/26/2016 Asthma ([facility]) 01/31/2016 Venous insufficiency 01/31/2016 Anticoagulant long-term use 11/23/2014 Atrial fibrillation ([facility]) 11/23/2014 Mitral regurgitation 11/23/2014 Allergic rhinitis 11/23/2014 Pulmonary HTN ([facility]) 11/23/2014 CHRISTIANNE on CPAP 11/23/2014 Surgical History[2] [...] Smokeless Tobacco Never documented in this encounter [facility] 12-20-2024 Note [facility] 12-19-2024 Telephone encounter Note May be getting a little dehydrated on new medication, please increase PO hydration and repeat BMP prior to next OV. Call sooner if any changes in symptoms. Relayed the above to the Pt, Pt confirmed understanding. [facility] 12-19-2024 Miscellaneous Notes May be getting a [...] no answer LVM documented in this encounter [facility] 12-19-2024 Note Addended by: JOSSELYN LOVE on: 12/19/2024 05:01 PM Modules accepted: Orders [facility] 12-19-2024 Note Addended by: JOSSELYN LOVE on: 12/19/2024 05:01 PM Modules accepted: Orders [facility] 12-19-2024 Note Addended by: JOSSELYN LOVE on: 12/19/2024 05:01 PM Modules accepted: Orders [facility] 12-19-2024 Note Addended by: JOSSELYN LOVE on: 12/19/2024 05:01 PM Modules accepted: Orders [facility] 12-19-2024 Telephone encounter Note Okay, hard to make adjustments without weights/ asymptomatic. However, started on MRA last OV and feeling fine overall. May be getting a little dehydrated on new medication, please increase PO hydration and repeat BMP prior to next OV. Call sooner if any changes in symptoms. [facility] 12-19-2024 Telephone encounter Note Pt has not been checking Wt/ BP at home [facility] 12-19-2024 Telephone encounter Note TC to Pt and let her to know that her labs show an NICK Pt said that she is drinking more fluid than normal Pt has no s/s of HF or Dehydration Let Pt know that I would talk to Josselyn and get back to her Pt confirmed understanding. [facility] 12-19-2024 Telephone encounter Note TC to Pt no answer LVM [facility] 12-19-2024 Note Addended by: MIGUEL AMEZCUA on: 12/19/2024 09:36 AM Modules accepted: Orders [facility] 12-19-2024 Miscellaneous Notes Addended by: MIGUEL PASTOR on: 12/19/2024 09:36 AM Modules accepted: Orders TC to Pt no answer LVM explaining that lab was ordered and she can go to any [facility] or [facility] lab to have this completed Message released [...] from encounter: Yes documented in this encounter [facility] 12-18-2024 Telephone encounter Note I am unable to do this because I did not evaluate the patient for oxygen. So UNABLE to do this, I would recommend forward it back to patient's PCP Dr. Ibarra who evaluated the patient for this. And see if he is able to addend any or otherwise schedule an appointment with Fred. [facility] 12-18-2024 Telephone encounter Note Will you update patient office notes on the Oxygen. [facility] 12-14-2024 Telephone encounter Note Name of caller: Pilar Contact phone number: [phone] Relationship to Patient: [employer] Provider: Dr. Ibarra Practice: [facility] Chief Complaint/Reason for Call: Located within [facility] needs more office visit notes for patient. [facility] already received patients notes from June. [facility] will need more notes that would qualify patient for oxygen. Please advise. Best time of day caller can be reached: any Patient advised that office/PCP has 24-48 business hours to return their call: Yes [facility] 12-12-2024 Progress note Formatting of t his [...] any blood thinners or have any questions. [facility] 12-12-2024 Miscellaneous Notes Left voicemail message regarding [...] have any questions. documented in this encounter [facility] 12-12-2024 Telephone encounter Note TC to Pt no answer LVM explaining that lab was ordered and she can go to any [facility] or [facility] to have this completed [facility] 12-11-2024 Telephone encounter Note Message released to [...] relayed to the patient from encounter: Yes [facility] 12-11-2024 Telephone encounter Note Message released to patient as written. Patient's further questions if applicable: Please call [facility]ta to explain the recommended orders. Were all questions from office addressed or relayed to the patient from encounter: Yes [facility] 12-11-2024 Miscellaneous Notes Message released to patient [...] no answer LVM documented in this encounter [facility] 12-11-2024 Telephone encounter Note TC to Pt no answer LVM [facility] 12-11-2024 Miscellaneous Notes TC to Pt no answer LVM ----- Message from Josselyn Bhardwaj PA-C sent at 12/08/2024 2:49 PM EDT ----- Let her know Dr. Moon recommends ESR CRP- if agreeable I will place orders. Thanks TC to Pt no answer LVM documented in this encounter [facility] 12-08-2024 Telephone encounter Note ----- Message from Josselyn Bhardwaj PA-C sent at 12/08/2024 2:49 PM EDT ----- Let her know Dr. Moon recommends ESR CRP- if agreeable I will place orders. Thanks TC to Pt no answer LVM [facility] 12-08-2024 Telephone encounter Note TC to [facility] No answer LVM [facility] 12-08-2024 Miscellaneous Notes TC to [facility] No answer LVM TC to [facility] no answer LVM Name of caller: Alta Contact phone number: [phone] Relationship to Patient: [employer] [facility] Provider: Bessy Bhardwaj Practice: [facility] Chief Complaint/Reason for Call: Pilar with [employer] called to request office visit notes and test results for pt. Please call to discuss. Best time of day caller can be reached: Any Patient advised that office/PCP has 24-48 business hours to return their call: Yes documented in this encounter [facility] 12-07-2024 Telephone encounter Note TC to [facility] no answer LVM [facility] 12-06-2024 Telephone encounter Note Name of caller: Alta Contact phone number: [phone] Relationship to Patient: [employer] [facility] Provider: Bessy Bhardwaj Practice: [facility] Chief Complaint/Reason for Call: Pilar with [employer] called to request office visit notes and test results for pt. Please call to discuss. Best time of day caller can be reached: Any Patient advised that office/PCP has 24-48 business hours to return their call: Yes [facility] 12-06-2024 History of Present illness Narrative [facility] - [facility] Failure [facility] Progress Note [...] follow-up. Pt is a new referral to [facility] HF clinic. She is known to Dr. Moon. 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 Previously on digoxin but this was stopped 2/2 digoxin toxicity in the setting of NICK. Admitted to the ICU on NIV in April 2024. Treated for MSSA PNA and influenza A. Echocardiogram at this time with LVEF=60%, RVSP 70 mmHg. Readmitted to [facility] in May 2024 for atrial fibrillation [...] powder Topical, 2 times daily nystatin (Mycostatin) 914300 UNIT/GM powder Topical, 3 times daily sertraline [...] to me by Samuel. Josselyn Bhardwaj PA-C [facility] [address] [place] [address] P-[phone] F-[phone] This note was electronically signed by Josselyn [...] Grandfather age 89 documented in this encounter [facility] 12-06-2024 History of Present illness Narrative [facility] - [facility] Progress Note [...] follow-up. Pt is a new referral to [facility] HF clinic. She is known to Dr. Moon. 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 Previously on digoxin but this was stopped 2/2 digoxin toxicity in the setting of NICK. Admitted to the ICU on NIV in April 2024. Treated for MSSA PNA and influenza A. Echocardiogram at this time with LVEF=60%, RVSP 70 mmHg. Readmitted to [facility] in May 2024 for atrial fibrillation [...] powder Topical, 2 times daily nystatin (Mycostatin) 865847 UNIT/GM powder Topical, 3 times daily sertraline [...] me by Ms. Baker. Josselyn Bhardwaj PA-C [facility] [address] [place], [place] [id number] [phone] F-[phone] This note was electronically signed by Josselyn [...] CT abd COPD (chronic obstructive pulmonary disease) ([facility]) 2016 PFTs 08/29- Pulm consult [facility] COVID-19 [...] Grandfather age 89 documented in this encounter [facility] 12-06-2024 Instructions Josselyn Bhardwaj PA-C - 12/06/2024 1:30 PM EDT -Alta, please take your furosemide once daily -Stop the potassium pills and start a new medication called spironolactone 25 mg daily -Labs in 1 week documented in this encounter [facility] 12-06-2024 Instructions Josselyn Bhardwaj PA-C - 12/06/2024 1:30 PM EDT -Alta, please take your furosemide once daily -Stop the potassium pills and start a new medication called spironolactone 25 mg daily -Labs in 1 week documented in this encounter [facility] 12-06-2024 Miscellaneous Notes Addended by: MIGUEL PASTOR on: 12/19/2024 09:36 AM Modules accepted: Orders documented in this encounter [facility] 12-06-2024 Note Addended by: MIGUEL AMEZCUA on: 12/19/2024 09:36 AM Modules accepted: Orders [facility] 11-24-2024 Note Pt changed her mind and would like the procedure done in [place] under anesthesia - will need to be CT guided. CT guided BMB pended to be signed. [facility] 11-21-2024 History of Present illness Narrative [...] (HCC) 12/2023 COPD (chronic obstructive pulmonary disease) ([facility]) 09/22/2022 Gallstone 2018 Depression 07/01/2021 Heart failure with improved ejection fraction (HFimpEF) ([facility]) 06/25/2020 Morbidly obese ([facility]) 10/25/2018 History of pulmonary embolism 07/20/2016 Hypercholesteremia 04/26/2016 Asthma 01/31/2016 Venous insufficiency 01/31/2016 Anticoagulant long-term use 11/23/2014 Atrial fibrillation ([facility]) 11/23/2014 Mitral regurgitation 11/23/2014 Allergic rhinitis 11/23/2014 Pulmonary HTN ([facility]) 11/23/2014 CHRISTIANNE on CPAP 11/23/2014 Social History[3] [...] Case Report 11/09/2024 Final Value:Peripheral Smear Case: [id number] Authorizing Provider: Marion Mccann DO Collected: 11/09/2024 1508 Ordering Location: [facility] - Received: 11/09/[address] [place] [address] Pathologist: Rachel Avery MD MPH Specimen: Blood, [...] underlying myelodysplastic/myeloproliferative neoplasm. Pathologist Interpretation Location 11/09/2024 [facility], [address] [place] [address], CLIA: [id number]; Joint Commission: [id number]; CAP: [id number] Final Gross Description 11/09/2024 Final Value:Peripheral smear slide prepared for evaluation. Case Report 11/09/2024 Final Value:Flow Cytometry Case: [id number] Authorizing Provider: Marion Mccann DO Collected: 11/09/2024 1508 Ordering Location: [facility] - Received: 11/09/[address] [place] [address] Pathologist: Rachel Avery MD MPH Specimen: Blood, [...] flow cytometric analysis. Pathologist Interpretation Location 11/09/2024 [facility], [address] [place] [address], CLIA: [id number]; Joint Commission: [id number]; CAP: [id number] Final Disclaimer 11/09/2024 Final Value:Disclaimer: The following statement applies to all immunohistochemistry, in situ hybridization, molecular studies, and immunofluorescence testing, if performed on this case. The use of one or more reagents in the above tests is regulated as an analyte specific reagent (ASR). These tests were developed and their performance characteristics determined by the clinical laboratories of [facility]. They have not been cleared by [...] therapy of these disorders. Test Performed by [employer] [facility] [place], [facility], [address] [place] [address] Luis Brown M.D., Ph.D., Director of Laboratories , CLIA [id number] TRANSLOCATION T(9;22) 11/09/2024 Not Detected Final [...] lesions. She follows with Dr. Chau at [facility]. Consider DEXA scan as well. Will await [...] Apply topically 2 times daily. nystatin (Mycostatin) 690280 UNIT/GM powder Apply topically 3 times daily. [...] for this visit. documented in this encounter [facility] 11-20-2024 Miscellaneous Notes Last OV:08/15/24 Scheduled:no apt Ordering provider: Kory Ibarra DO Date of last office visit: 08/15/24 Date of next office visit: 11/20/2024 [facility] Echo/Stress Cardiology 11/21/2024 Marion Mccann Hematology and Oncology 01/25/2025 Greyson Cifuentes Internal Medicine Updated/Validated preferred pharmacy: Yes [id number] - [place], [place] - [address]. AT [address] Patient instructed [...] medication tab): 06/20/24 documented in this encounter [facility] 11-20-2024 Telephone encounter Note Last OV:08/15/24 Scheduled:no apt [facility] 11-17-2024 Telephone encounter Note Ordering provider: Kory Ibarra DO Date of last office visit: 08/15/24 Date of next office visit: 11/20/2024 [facility] Echo[facility]Stress Cardiology 11/21/2024 Marion Mccann Hematology and Oncology 01/25/2025 Greyson Cifuentes Internal Medicine Updated/Validated preferred pharmacy: Yes [id number] - [place], [place] - [address]. AT [address] Patient instructed [...] of last refill (see medication tab): 06/20/24 [facility] 11-14-2024 Telephone encounter Note Message left for patient to return call to office to set up an appointment with Dr. Mccann to review lab results. [facility] 11-14-2024 Miscellaneous Notes Message left for patient to return call to office to set up an appointment with Dr. Mccann to review lab results. ----- Message from Marion Mccann DO sent at 11/14/2024 12:30 PM EDT ----- Patient needs a follow up appt with me to review all of her results. Thanks! ----- Message ----- From: [employer] [place] Sent: 11/09/2024 3:36 PM EDT To: Marion Mccann DO documented in this encounter [facility] 11-14-2024 Telephone encounter Note ----- Message from Marion Mccann DO sent at 11/14/2024 12:30 PM EDT ----- Patient needs a follow up appt with me to review all of her results. Thanks! ----- Message ----- From: [employer] Owen Sent: 11/09/2024 3:36 PM EDT To: Marion Mccann DO [facility] 11-10-2024 Note Peripheral smear sli de prepared for evaluation. [employer] Phone: 11-10-2024 Note Peripheral smear sli de prepared for evaluation. [facility] [employer] Phone: 11-09-2024 History of Present illness Narrative ARRIVAL NOTE INFUSION Patient is here for lab draw Labs were drawn peripherally from LAC. Site benign and patient tolerated well. Gauze and coban applied. DC with family member without concern. documented in this encounter [facility] 11-09-2024 History of Present illness Narrative We [...] hypertension Cor pulmonale, chronic (HCC) 02/17/2024 Thrombocytopenia ([facility]) 12/2023 COPD (chronic obstructive pulmonary disease) ([facility]) 09/22/2022 Gallstone 2018 Depression 07/01/2021 Heart failure with improved ejection fraction (HFimpEF) ([facility]) 06/25/2020 Morbidly obese ([facility]) 10/25/2018 History of pulmonary embolism 07/20/2016 Hypercholesteremia 04/26/2016 Asthma 01/31/2016 Venous insufficiency 01/31/2016 Anticoagulant long-term use 11/23/2014 Atrial fibrillation ([facility]) 11/23/2014 Mitral regurgitation 11/23/2014 Allergic rhinitis 11/23/2014 Pulmonary HTN ([facility]) 11/23/2014 CHRISTIANNE on CPAP 11/23/2014 Social History[3] [...] Apply topically 2 times daily. nystatin (Mycostatin) 725334 UNIT/GM powder Apply topically 3 times daily. [...] schedule BP Check documented in this encounter [facility] 11-09-2024 History of Present illness Narrative We [...] Heart failure with improved ejection fraction (HFimpEF) ([facility]) 06/25/2020 Morbidly obese ([facility]) 10/25/2018 History of pulmonary embolism 07/20/2016 Hypercholesteremia 04/26/2016 Asthma 01/31/2016 Venous insufficiency 01/31/2016 Anticoagulant long-term use 11/23/2014 Atrial fibrillation ([facility]) 11/23/2014 Mitral regurgitation 11/23/2014 Allergic rhinitis 11/23/2014 Pulmonary HTN ([facility]) 11/23/2014 CHRISTIANNE on CPAP 11/23/2014 Social History[3] [...] Apply topically 2 times daily. nystatin (Mycostatin) 704520 UNIT/GM powder Apply topically 3 times daily. [...] bp check 11/27 documented in this encounter [facility] 11-06-2024 Telephone encounter Note Name of Caller: Alta Contact Reason for Appointment: Patient needs to RS new patient appointment that was scheduled for 11.07.24 Office Name: Oncology Medication Refills need, if any: NA Medication Name: NA [facility] 11-06-2024 Miscellaneous Notes Name of Caller: Alta Contact Reason for Appointment: Patient needs to RS new patient appointment that was scheduled for 11.07.24 Office Name: Oncology Medication Refills need, if any: NA Medication Name: SAÚL documented in this encounter [facility] 10-20-2024 Telephone encounter Note Name of caller: Delaney Contact phone number: [phone] Relationship to Patient: [facility] Care Provider: Dr. Ibarra Practice: Ruddy GUTHRIE Chief Complaint/Reason for Call: Delaney informing patient will be missing nursing visit this week. States unable to get a hold of patient all week. Best time of day caller can be reached: any Patient advised that office/PCP has 24-48 business hours to return their call: N/A [facility] 10-20-2024 Miscellaneous Notes Name of caller: Delaney Contact phone number: [phone] Relationship to Patient: [facility] Care Provider: Dr. Ibarra Practice: Ruddy GUTHRIE Chief Complaint/Reason for Call: Delaney informing patient will be missing nursing visit this week. States unable to get a hold of patient all week. Best time of day caller can be reached: any Patient advised that office/PCP has 24-48 business hours to return their call: N/A documented in this encounter [facility] 10-12-2024 Telephone encounter Note Noted. [facility] 10-12-2024 Miscellaneous Notes Noted. Name of caller: Alta Contact phone number: [phone] Relationship to Patient: patient Provider: [place] Practice: RENETTA Chief Complaint/Reason for Call: Patient was calling to let you know that she is scheduled for her echo 10/31 in [place]. Please advise Best time of day caller [...] Echocardiogram 1st Attempt: 09/03 Sent patient a Sandglazt message 2nd Attempt: 10/06 Called patient and family requested we call back on 10/09. 3rd Attempt: 10/09 Called patient no answer left voicemail documented in this encounter [facility] 10-11-2024 Telephone encounter Note Name of caller: Alta Contact phone number: [phone] Relationship to Patient: patient Provider: [place] Practice: [facility] Chief Complaint/Reason for Call: Patient was calling to let you know that she is scheduled for her echo 10/31 in [place]. Please advise Best time of day caller can be reached: any Patient advised that office/PCP has 24-48 business hours to return their call: No [facility] 10-10-2024 Telephone encounter Note Left message for Zaynab to return call to the office. [facility] 10-10-2024 Miscellaneous Notes Left message for Zaynab to return call to the office. 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 [employer] and was out to see patient [...] their call: Yes documented in this encounter [facility] 10-10-2024 Telephone encounter Note Name of caller: Zaynab Contact phone number: [phone] Relationship to Patient: [facility] - nurse practitioner Provider: Dr Iabrra Practice: anupama diana Chief Complaint/Reason for Call: 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 Called patient, and left message for call back. [facility] 10-09-2024 Telephone encounter Note We have been unable to reach your patient to reschedule their testing she No Showed for. Test Name: Transthoracic Echocardiogram 1st Attempt: 09/03 Sent patient a Sandglazt message 2nd Attempt: 10/06 Called patient and family requested we call back on 10/09. 3rd Attempt: 10/09 Called patient no answer left voicemail [facility] 10-02-2024 Telephone encounter Note Order faxed [facility] 10-02-2024 Miscellaneous Notes Order faxed Name of caller: joaquin Contact phone number: [phone] Relationship to Patient: [facility] Provider: Dr Ibarra Practice: anupama diana Chief Complaint/Reason for Call: Joaquin called about the order for an oxygen concentration tank to be faxed to [place]. Per joaquin, the patient reached out to him regarding this. Joaquin is requesting the orders are faxed to [phone] Best time of day caller can be reached: any Patient advised that office/PCP has 24-48 business hours to return their call: Yes Demographics faxed. Name of caller: Zoraida Contact phone number: Relationship to Patient: [facility] Provider: Dr Ibarra Practice: ruddy guthrie Chief Complaint/Reason for Call: [facility] is asking for patients demographics to be faxed to [phone] Best time of day caller can be reached: AM Patient advised that office/PCP has 24-48 business hours to return their call: Yes Order faxed . Name of caller: Simone Contact phone number: [phone] Relationship to Patient: [facility] Provider: Fred Practice: Ruddy Chief Complaint/Reason for Call: Simone calling that they need an order for a new Portable Oxygen Machine. [facility] needs the script with the litre flow, diagnosis, and length of needing the machine, also the oxygen testing, chart notes that mention the patient's oxygen needs - please fax over [facility] to fax: [phone]. If questions, can reach out to [facility]. Best time of day caller can be reached: any Patient advised that office/PCP has 24-48 business hours to return their call: Yes documented in this encounter [facility] 09-29-2024 Telephone encounter Note Name of caller: joaquin Contact phone number: [phone] Relationship to Patient: [facility] Provider: Dr Ibarra Practice: anupama diana Chief Complaint/Reason for Call: Joaquin called about the order for an oxygen concentration tank to be faxed to [facility]. Per joaquin, the patient reached out to him regarding this. Joaquin is requesting the orders are faxed to [phone] Best time of day caller can be reached: any Patient advised that office/PCP has 24-48 business hours to return their call: Yes [facility] 09-29-2024 Miscellaneous Notes Name of caller: joaquin Contact phone number: [phone] Relationship to Patient: [facility] Provider: Dr Ibarra Practice: anupama diana Chief Complaint/Reason for Call: Joaquin called about the order for an oxygen concentration tank to be faxed to [facility]. Per joaquin, the patient reached out to him regarding this. Joaquin is requesting the orders are faxed to [phone] Best time of day caller can be reached: any Patient advised that office/PCP has 24-48 business hours to return their call: Yes Demographics faxed. Name of caller: Zoraida Contact phone number: Relationship to Patient: [facility] Provider: Dr Ibarra Practice: ruddy guthrie Chief Complaint/Reason for Call: [facility] is asking for patients demographics to be faxed to [phone] Best time of day caller can be reached: AM Patient advised that office/PCP has 24-48 business hours to return their call: Yes Order faxed . Name of caller: Simone Contact phone number: [phone] Relationship to Patient: [facility] Provider: Fred Practice: Ruddy Chief Complaint/Reason for Call: Simone calling that they need an order for a new Portable Oxygen Machine. [facility] needs the script with the litre flow, diagnosis, and length of needing the machine, also the oxygen testing, chart notes that mention the patient's oxygen needs - please fax over [facility] to fax: [phone]. If questions, can reach out to [facility]. Best time of day caller can be reached: any Patient advised that office/PCP has 24-48 business hours to return their call: Yes documented in this encounter [facility] 09-25-2024 Telephone encounter Note noted [facility] 09-25-2024 Miscellaneous Notes noted Name of caller: Alta Baker Contact phone number: [phone] Relationship to Patient: patient Provider: Dr. Ibarra [...] daughter can come with her Office Name: [facility] Medication Refills need, if any: n/a Medication Name: n/a documented in this encounter [facility] 09-22-2024 Telephone encounter Note Name of caller: Alta Baker Contact phone number: [phone] Relationship to Patient: patient Provider: Dr. Ibarra [...] business hours to return their call: Yes [facility] 09-22-2024 Miscellaneous Notes Name of caller: Alta Baker Contact phone number: [phone] Relationship to Patient: patient Provider: Dr. Ibarra [...] daughter can come with her Office Name: [facility] Medication Refills need, if any: n/a Medication Name: n/a documented in this encounter [facility] 09-22-2024 Telephone encounter Note Demographics faxed. [facility] 09-22-2024 Miscellaneous Notes Demographics faxed. Name of caller: Zoraida Contact phone number: Relationship to Patient: [facility] Provider: Dr Ibarra Practice: rdudy guthrie Chief Complaint/Reason for Call: [facility] patients demographics to be faxed to [phone] Best time of day caller can be reached: AM Patient advised that office/PCP has 24-48 business hours to return their call: Yes Order faxed . Name of caller: Simone Contact phone number: [phone] Relationship to Patient: [facility] Provider: Fred Practice: Ruddy Chief Complaint/Reason for Call: Simone calling that they need an order for a new Portable Oxygen Machine. [facility] needs the script with the litre flow, diagnosis, and length of needing the machine, also the oxygen testing, chart notes that mention the patient's oxygen needs - please fax over [employer] to fax: [phone]. If questions, can reach out to [facility]. Best time of day caller can be reached: any Patient advised that office/PCP has 24-48 business hours to return their call: Yes documented in this encounter [facility] 09-22-2024 Telephone encounter Note Name of caller: Zoraida Contact phone number: Relationship to Patient: [facility] Provider: Dr Ibarra Practice: ruddy guthrie Chief Complaint/Reason for Call: [employer] is asking for patients demographics to be faxed to F#[phone] Best time of day caller can be reached: AM Patient advised that office/PCP has 24-48 business hours to return their call: Yes [facility] 09-22-2024 Telephone encounter Note Order faxed . [facility] 09-22-2024 Telephone encounter Note Recent Visits Date Type Provider Dept 08/15/24 Office Visit Kory Ibarra, DO [facility] 06/19/24 Office Visit Kory Ibarra DO [facility] 04/03/24 Office Visit Kory Ibarra DO [facility] 02/14/24 Office Visit Curt Last PA-C [facility] 12/21/23 Office Visit Kory Ibarra, DO [facility] Showing recent visits within past 365 [...] recent labs completed in chart? N/A None [facility] 09-22-2024 Miscellaneous Notes Recent Visits Date Type Provider Dept 08/15/24 Office Visit Kory Ibarra, DO [facility] 06/19/24 Office Visit Kory Ibarra, DO [facility] 04/03/24 Office Visit K[facility], DO [facility] 02/14/24 Office Visit Curt [facility] PA[facility]C [facility] 12/21/23 Office Visit Kory Ibarra, DO [facility] Showing recent visits within [...] chart? N/A None documented in this encounter [facility] 09-21-2024 Telephone encounter Note Name of caller: Simone Contact phone number: [phone] Relationship to Patient: [facility] Provider: Fred Practice: Ruddy Chief Complaint/Reason for Call: Simone calling that they need an order for a new Portable Oxygen Machine. [facility] needs the script with the litre flow, diagnosis, and length of needing the machine, also the oxygen testing, chart notes that mention the patient's oxygen needs - please fax over [employer] to fax: [phone]. If questions, can reach out to [facility]. Best time of day caller can be reached: any Patient advised that office/PCP has 24-48 business hours to return their call: Yes [facility] 09-12-2024 Telephone encounter Note Spoke with patient and she will be here 09/19/24 @ 6:30 am. DARCY [facility] 09-12-2024 Miscellaneous Notes Spoke with patient and she will be here 09/19/24 @ 6:30 am. FYRoberth Left message for patient to return call to the office, please have pt arrive at 6:20 am. Name of Caller: Alta Contact Reason for Appointment: JAMIN, prefers Wednesday or Wednesday so daughter can come with her Office Name: [facility] Medication Refills need, if any: n/a Medication Name: n/a documented in this encounter [facility] 09-12-2024 Telephone encounter Note Left message for patient to return call to the office, please have pt arrive at 6:20 am. [facility] 09-11-2024 Telephone encounter Note Name of Caller: Alta Contact Reason for Appointment: JAMIN, prefers Wednesday or Wednesday so daughter can come with her Office Name: [facility] Medication Refills need, if any: n/a Medication Name: n/a [facility] 09-05-2024 Telephone encounter Note Left message for patient to return call to the office, please go over med list with patient thanks, [facility] 09-05-2024 Miscellaneous Notes Left message for patient to return call to the office, please go over med list with patient thanks, Please verify current medication list is up to date Name of caller: Glenn Contact phone number: [phone] Relationship to Patient: [facility] Provider: Practice: [facility] Chief Complaint/Reason for Call: Glenn called [...] their call: no documented in this encounter [facility] 09-04-2024 Telephone encounter Note Please verify current medication list is up to date [facility] 09-04-2024 Telephone encounter Note Name of caller: Glenn Contact phone number: [phone] Relationship to Patient: [facility] Provider: Practice: [facility] Chief Complaint/Reason for Call: Glenn called [...] business hours to return their call: no [facility] 08-28-2024 Telephone encounter Note Spoke with the [...] on 08/28 have not heard from pt. [facility] 08-28-2024 Miscellaneous Notes Spoke with the pt about getting her schedule for new pt apt with . The pt said she in the hospital at this time and will call back when she is out. The pt is unsure when she will be out of the hospital. documented in this encounter [facility] 08-28-2024 Miscellaneous Notes Spoke with the pt [...] heard from pt. documented in this encounter [facility] 08-28-2024 Discharge summary Note Date/Time August 28, 2024 12:53pm [facility] Records Department [address] [place] [address] Discharge Summary 08/28/24 1241 MR#: [id number] Acct: [id number] Name: ALTA BAKER Rep #:[id number] : 1950 74 From: Jimbo beach MD PCP: Dr. Kory Ibarra DO Status:[facility] Location: [place] [id number] Providers Date of Admission: 08/24/24 Primary Care [...] [facility] 85 [facility] shortness of [...] 79.3 H, Lymph % (Auto) 5.9 L, [place] % (Auto) 10.8 H, Eos % (Auto) [...] Self Care Charges/Coding Visit Charges Inpatient E&M: 45147 Disch Hosp >30min 08/28/24 1253 <Electronically signed by Jimbo Ibarra MD> Cosigner Signature (if applicable): CC: Dr. Kory Ibarra DO; Dr. Jimbo Ibarra MD~ Signed [facility] Work Phone: 1(373) 346-232806-16-2025 Discharge summary [facility] Records Department [address] [place] [address] Discharge Summary 08/28/24 1241 MR#: [id number] Acct: [id number] Name: ALTA BAKER Rep #:[id number] : 1950 74 From: Jimbo beach MD PCP: Dr. Kory Ibarra DO Status:AD M IN [facility] Prov[facility] Date of Admission: [...] is a 85 M who presented to [facility] on 08/22/24 with worsening shortness of [...] 79.3 H, Lymph % (Auto) 5.9 L, [place] % (Auto) 10.8 H, Eos % (Auto) [...] Self Care Charges/Coding Visit Charges Inpatient E&M: 93438 Disch Hosp >30min 08/28/24 1253 Cosigner Signature (if applicable): CC: Dr. Kory Ibarra DO; Dr. Jimbo Ibarra MD~ Signed [facility]06-16-2025 [facility] Medical Records Department [address] [place] [address] Discharge Summary 08/28/24 1241 MR#: [id number] Acct: [id number] Name: ALTA BAKER Rep #: [id number] : 1950 74 From: Jimbo Ibarra MD PCP: Dr. Kory Ibarra DO Status:ADM IN Location: [place] [address] Providers Date of Admission: 08/24/24 Primary Care [...] is a 85 M who presented to [facility] ED on 08/22/24 with worsening shortness of [...] respiratory sufficiency secondary t (more content not included)...[facility]06-16-2025 Discharge summary Author Jimbo Ibarra [facility] Note Date/Time August 28, 2024 10:1 4am [facility] Medical Records Department [address] [place] [address] Instructions for Home/Discharge Instructions 08/28/24 1002 MR#: [id number] Acct: [id number] Name: ALTA BAKER Rep #:[id number] : 1950 74 From: Jimbo beach MD [...] DO; Dr. Jemima Poe DO ~ Signed [facility] Work Phone: 1(340) 477-472106-16-2025 Telephone encounter Note* Telephone Encounter - Laura Segundo MA - 08/28/2024 10:56 AM EDT Called and spoke with Rukhsana. She is going to fax over patients hospital records for Dr. Fred dodson. Please document once fax is received and placed with Dr. Ibarra [facility] [id number] Miscellaneous Notes* Telephone Encounter - Laura Segundo MA - 08/28/2024 10:56 AM EDT Called and spoke with Rukhsana. She is going to fax over patients hospital records for Dr. Fred dodson. Please document once fax is received and placed with Dr. Ibarra * Telephone Encounter - Jaguar Wang - 08/28/2024 10:36 AM EDT Name of caller: Rukhsana Contact phone number: [phone] Relationship to Patient: [facility] Provider: Dr. Ibarra Practice: [facility] Chief Complaint/Reason for Call: Rukhsana from [facility] calling in to schedule a Hospital Follow Up for patient. Patient is scheduled for 09/13/[address] Ibarra. However, hospital would like patient seen within the next week. Please advise Best time of day caller can be reached: Any Patient advised that office/PCP has 24-48 business hours to return their call: N/A documented in this encounterSMer[facility] [id number] Telephone encounter Note* Telephone Encounter - Jaguar Wang - 08/28/2024 10:36 AM EDT Name of caller: Rukhsana Contact phone number: [phone] Relationship to Patient: [facility] Provider: Dr. Ibarra Practice: [facility] Chief Complaint/Reason for Call: Rukhsana from [facility] calling in to schedule a Hospital Follow Up for patient. Patient is scheduled for 09/13/[address] Ibarra. However, hospital would like patient seen within the next week. Please advise Best time of day caller can be reached: Any Patient advised that office/PCP has 24-48 business hours to return their call: N/A [facility] [id number] Discharge summary [facility] Medical Records Department [address] [place] [address] Instructions for Home/Discharge Instructions 08/28/24 1002 MR#: [id number] Acct: [id number] Name: ALTA BAKER Rep #:[id number] : 1950 74 From: Jimbo beach MD [...] DO; Dr. Jemima Poe DO ~ Signed [facility]06-15-2025 Progress note Author Jimbo Ibarra [facility] Note Date/Time August 27, 2024 3:[address] [facility] Medical Records Department [address] [place] [address] Progress Note - Hospitalist 08/27/24 9684 MR#: [id number] Acct: [id number] Name: ALTA BAKER Rep #:[id number] : 1950 74 From: Jimbo beach MD PCP: Dr. Kory Ibarra, DO Status:AD M IN Location: [place] [address] Subjective Subjective Doing well, did not get [...] 78.5 H, Lymph % (Auto) 5.7 L, [place] % (Auto) 13.6 H, Eos % (Auto) [...] DVT: Eliquis Charges/Coding Visit Charges Inpatient E&M: 53632 Subs Hosp L2 08/27/24 1500 <Electronically signed by Jimbo Ibarra MD> Cosigner Signature (if applicable): CC: ~ Signed [facility] Work Phone: 1(253) 994-102306-15-[address] [facility] Medical Records Department [address] [place] [address] Progress Note - Hospitalist 08/27/24 1456 MR#: [id number] Acct: [id number] Name: ALTA BAKER Rep #:[id number] : 1950 74 From: Jimbo beach MD PCP: Dr. Kory Ibarra, DO Status:AD M IN Location: [place] [address] Subjective Subjective Doing well, did not get [...] 78.5 H, Lymph % (Auto) 5.7 L, [place] % (Auto) 13.6 H, Eos % (Auto) [...] DVT: Eliquis Charges/Coding Visit Charges Inpatient E&M: 64854 Subs Hosp L2 08/27/24 1509 Cosigner Signature (if applicable): CC: ~ Signed [facility]06-14-2025 Progress note Author Jimbo Ibarra [facility] Note Date/Time August 26, 2024 12:1 3pm [facility] Medical Records Department [address] [place] [address] Progress Note - Hospitalist 08/26/24 1157 MR#: [id number] Acct: [id number] Name: ALTA BAKER Rep #:[id number] : 1950 74 From: Jimbo beach MD PCP: Dr. Kory Ibarra, DO Status:AD M IN [facility] Subjective Subjective feels like [...] (Auto) 83.6 H, Lymph % (Auto)6.1 L, [place] % (Auto) 8.1, Eos % (Auto) 0.0, [...] DVT: Eliquis Charges/Coding Visit Charges Inpatient E&M: 82711 Subs Hosp L2 08/26/24 1213 <Electronically signed by Jimbo Ibarra MD> Cosigner Signature (if applicable): CC: ~ Signed [facility] Work Phone: 1(206) 719-876306-14-[address] [facility] Medical Records Department [address] [place] [address] Progress Note - Hospitalist 08/26/24 1157 MR#: [id number] Acct: [id number] Name: ALTA BAKER Rep #:[id number] : 1950 74 From: Jimbo beach MD PCP: Dr. Kory Ibarra, DO Status:AD M IN Location: [place] [address] Subjective Subjective feels like she is breathing [...] (Auto) 83.6 H, Lymph % (Auto)6.1 L, [place] % (Auto) 8.1, Eos % (Auto) 0.0, [...] DVT: Eliquis Charges/Coding Visit Charges Inpatient E&M: 76579 Subs Hosp L2 08/26/24 1213 Cosigner Signature (if applicable): CC: ~ Signed [facility]06-13-2025 Progress note Author John Paul Will [facility] Note Date/Time August 25, 2024 2:10 pm [facility] Medical Records Department [address] [place] [address] Progress Note - Hospitalist 08/25/24 0730 MR#: [id number] Acct: [id number] Name: ALTA BAKER Rep #:[id number] : 1950 74 From: John Paul Will DO PCP: Dr. Kory Ibarra DO Status:[facility] IN Location: [place] [address] Reason for Visit Reason for Visit: Diagnoses [...] (Auto) 61.8, Lymph % (Auto) 9.7 L, [place] % (Auto) 27.2 H, Eos % (Auto) [...] Clarity Clear, Urine pH 5.0, Ur Specific Marion 1.020, Urine Protein 30 H, Urine Glucose [...] 89.1 H, Lymph % (Auto) 6.0 L, [place] % (Auto) 3.5, Eos % (Auto) 0.0, [...] severe cardiomegaly. Reading Location: [facility] Chest CT 08/24/24 23:01 IMPRESSION: IMPRESSION: Coronary [...] the hepatic contour, probably chronic. Reading Location: [place] [address] Physical Exam Const alert and no apparent [...] already anticoagulated. Charges/Coding Visit Charges Inpatient E&M: 79796 Subs Hosp L2 08/25/24 1130 <Electronically signed [...] Cosigner Signature (if applicable): cc: ~* Signed [facility] Work Phone: 1(253) 268-389306-13-[address] [facility] Medical Records Department [address] [place] [address] Progress Note - Hospitalist 08/25/24 0730 MR#: [id number] Acct: [id number] Name: ALTA BAKER Rep #:[id number] : 1950 74 From: John Paul Will DO PCP: Dr. Kory Ibarra DO Status:AD M IN Location: [place] [address] Reason for Visit Reason for Visit: Diagnoses [...] (Auto) 61.8, Lymph % (Auto) 9.7 L, [place] % (Auto) 27.2 H, Eos % (Auto) [...] Clarity Clear, Urine pH 5.0, Ur Specific Marion 1.020, Urine Protein 30 H, Urine Glucose [...] 89.1 H, Lymph % (Auto) 6.0 L, [place] % (Auto) 3.5, Eos % (Auto) 0.0, [...] severe cardiomegaly. Reading Location: [facility] Chest CT 08/24/24 23:01 IMPRESSION: IMPRESSION: Coronary [...] the hepatic contour, probably chronic. Reading Location: [place] [address] Physical Exam Const alert and no apparent [...] already anticoagulated. Charges/Coding Visit Charges Inpatient E&M: 62010 Subs Hosp L2 08/25/24 1130 Cosigner Signature [...] Cosigner Signature (if applicable): cc: ~* Signed [facility]06-13-2025 Telephone encounter Note* Telephone Encounter - Kerri Morse MA - 08/25/2024 8:04 AM EDT Note faxed [facility] [id number] Miscellaneous Notes* Telephone Encounter - Kerri Morse [...] Name of caller: Rhiannon Contact phone number: [phone] Relationship to Patient: family member patient and daughter Provider: Dr. Ibarra Practice: [facility] Chief Complaint/Reason for Call: Rhiannon called in stating that the order for a hospital bed has been misplaced and Patient is needing a new order sent to [facility] in [facility] along with chart notes explaining why Patient is needing this hospital bed. Rhiannon provided the fax number [phone]. Please advise. Best time of day caller can be reached: Any Patient advised that office/PCP has 24-48 business hours to return their call: No documented in this [facility]06-13-2025 History and physical note Author Jemima Poe [facility] Note Date/Time August 25, 2024 3:[address] [facility] Medical Records Department [address] [place] [address] H&P Exam - Hospitalist 08/24/24 2313 MR#: [id number] Acct: [id number] Name: ALTA BAKER Rep #:[id number] : 1950 74 From: Jemima Poe DO PCP: Dr. Kory Ibarra, Status:AD M IN Location: [facility] LOH403- 1 HPI - General General Date of Admission: 08/24/24 Date of Service: 08/24/24 Chief Complaint: Shortness of breath HPI Narrative ALTA BAKER, is a 74 F who presented to the emergency department at [facility] on 08/24/2024 that she complained of shortness [...] (Auto) 61.8, Lymph % (Auto) 9.7 L, [place] % (Auto) 27.2 H, Eos % (Auto) [...] Clarity Clear, Urine pH 5.0, Ur Specific Marion 1.020, Urine Protein 30 H, Urine Glucose [...] reflect pneumonitis/pneumonia. Stable severe cardiomegaly. Reading Location: [id number] Assessment & Plan Assessment/Plan (1) Hypoxia: (2) [...] per med rec -Follows with cardiology at [facility] -Will try to avoid Cardizem due to [...] performed: 23:32 Charges/Coding Visit Charges Inpatient E&M: 97537 Init Hosp L2 08/25/24 0341 <Electronically signed by Jemima Poe DO> Cosigner Signature (if applicable): CC: Dr. Kory Ibarra DO; Dr. Jemima Poe DO~ Signed [facility] Work Phone: 1(289) 515-211606-13-[address] [facility] Medical Records Department [address] [place] [address] H&P Exam - Hospitalist 08/24/24 2313 MR#: [id number] Acct: [id number] Name: ALTA BAKER Rep #:[id number] : 1950 74 From: Jemima Poe DO PCP: Dr. Kory Ibarra DO Status:AD M IN Location: [place] [address] HPI - General General Date of Admission: 08/24/24 Date of Service: 08/24/24 Chief Complaint: Shortness of breath HPI Narrative ALTA SAMUEL, is a 74 F who presented to the emergency department at [facility] on 08/24/2024 that she complained of shortness [...] she is not wheezing diffusely on exam. [facility] Medical History (Updated 08/25/24 @ 03:38 [...] (Auto) 61.8, Lymph % (Auto) 9.7 L, [place] % (Auto) 27.2 H, Eos % (Auto) [...] Clarity Clear, Urine pH 5.0, Ur Specific Marion 1.020, Urine Protein 30 H, Urine Glucose [...] severe cardiomegaly. Reading Location: [facility] Assessment & Plan Assessment/Plan (1) Hypoxia: (2) [...] per med rec -Follows with cardiology at [facility] -Will try to avoid Cardizem due to [...] performed: 23:32 Charges/Coding Visit Charges Inpatient E&M: 19495 Init Hosp L2 08/25/24 0341 Cosigner Signature (if applicable): CC: Dr. Kory Ibarra DO; Dr. Jemima Poe DO~ Signed [facility]06-13-2025 Discharge summary Author John Paul Harrison [facility] Note Date/Time August 24, 2024 11:[address] [facility] Medical Records Department [address] [place] [address] Emergency Department Summary 08/24/24 MR#: [id number] Acct: [id number] Name: ALTA BAKER Rep #:[id number] : 1950 74 From: John Paul Randhawa [...] Recent immobilization, Recent surgery or Recent travel [facility] Medical History Congestive heart failure (CHF) [...] (Auto) 61.8 Lymph % (Auto) 9.7 L [place] % (Auto) 27.2 H Eos % (Auto) [...] Clarity Clear Urine pH 5.0 Ur Specific Marion 1.020 Urine Protein 30 H Urine Glucose [...] reflect pneumonitis/pneumonia. Stable severe cardiomegaly. Reading Location: [id number] PA and lateral chest x-ray was obtained. [...] QTc interval was normal at 430 ms. Lometa was normal. There are no acute ST [...] DO [Primary Care Provider] - Print Language: Peruvian Disposition Disposition: Acute Care Hospital [facility] What to do if you have Problems For any increased pain, shortness of breath, bleeding, nausea or vomiting, chestpain, or any unexpected problems, contact your Primary Care Provider. Call [facility] ([phone]) or report to the closest Emergency Room. Call 911 if necessary. 08/24/24 6905 <Electronically signed by John Paul Harrison DO> Cosigner Signature (if applicable): CC: Dr. Kory Ibarra DO ~ Signed [facility] Work Phone: 1(114) 422-769306-13-2025 Radiology Diagnostic study note [facility] Imaging Services [address] [place] [address] Chest without Contrast MR#: [id number] Acct: [id number] Name: ALTA BAKER Rep #: [id number] : 1950 F 74 From: Priyanka Hoffman MD PCP: Dr. Kory Ibarra, Status: AD M IN Study:Chest without Contrast Date of Exam: 08/24/24 Exam# [id number] Ordering Dr: Loree Poe DO PROCEDURE: CHEST [...] the hepatic contour, probably chronic. Reading [facility] CC: Dr. Kory Ibarra DO; Dr. Jemima Poe DO ~ Developer Designer: Signed [facility]06-12-2025 Discharge summary [facility] Medical Records Department [address] [place] [address] Emergency Department Summary 08/24/24 MR#: [id number] Acct: [id number] Name: ALTA BAKER Rep #:[id number] : 1950 74 From: John Paul Randhawa [...] Recent immobilization, Recent surgery or Recent travel [facility] Medical History Congestive heart failure (CHF) [...] (Auto) 61.8 Lymph % (Auto) 9.7 L [place] % (Auto) 27.2 H Eos % (Auto) [...] Clarity Clear Urine pH 5.0 Ur Specific Marion 1.020 Urine Protein 30 H Urine Glucose [...] reflect pneumonitis/pneumonia. Stable severe cardiomegaly. Reading Location: [id number] PA and lateral chest x-ray was obtained. [...] QTc interval was normal at 430 ms. Lometa was normal. Thereare no acute ST or [...] DO [Primary Care Provider] - Print Language: Peruvian Disposition Disposition: Acute Care Hospital [facility] What to do if you have Problems For any increased pain, shortness of breath, bleeding, nausea or vomiting, chestpain, or any unexpected problems, contact your Primary Care Provider. Call [facility] ([phone]) or report tothe closest Emergency Room. Call 911 if necessary. 08/24/24 4084 Cosigner Signature (if applicable): CC: Dr. Kory Ibarra DO ~ Signed [facility]06-12-2025 Radiology Diagnostic study note [facility] Imaging Services [address] [place], [place] [address] Chest PA and Lateral MR#: [id number] Acct: [id number] Name: ALTA BAKER Rep #: [id number] : 1950 F 74 From: Evelina Vergara MD PCP: Dr. Kory Ibarra DO Status: RE G ER Study:Chest PA and Lateral Date of Exam: 08/24/24 Exam# [id number] Ordering Dr: John Paul Harrison DO PROCEDURE: [...] severe cardiomegaly. Reading Location: [facility] CC: Dr. John Paul Harrison, DO; Dr. Kory Ibarra, DO ~ Developer Designer: Signed [facility]06-12-2025 Telephone encounter Note* Telephone Encounter - Katia [...] relayed to the patient from encounter: Yes [facility] [id number] Miscellaneous Notes* Telephone Encounter - Katia Hancassi [...] Name of caller: Rhiannon Contact phone number: [phone] Relationship to Patient: family member patient and daughter Provider: Dr. Ibarra Practice: [facility] Chief Complaint/Reason for Call: Rhiannon called in stating that the order for a hospital bed has been misplaced and Patient is needing a new order sent to [facility] along with chart notes explaining why Patient is needing this hospital bed. Rhiannon provided the fax number [phone]. Please advise. Best time of day caller can be reached: Any Patient advised that office/PCP has 24-48 business hours to return their call: No documented in this encounterSMercy Health Defiance HospitalGngvbw13-24-2612 Telephone encounter Note* Telephone Encounter - Kerri Morse MA - 08/24/2024 8:29 AM EDT Left message for patient to return call to the office. Please release information to the patient. [facility] [id number] Telephone encounter Note* Telephone Encounter - Gay Cannon - 08/23/2024 2:03 PM EDT Name of caller: Rhiannon Contact phone number: [phone] Relationship to Patient: family member patient and daughter Provider: Dr. Ibarra Practice: [facility] Chief Complaint/Reason for Call: Rhiannon called in stating that the order for a hospital bed has been misplaced and Patient is needing a new order sent to [facility] along with chart notes explaining why Patient is needing this hospital bed. Rhiannon provided the fax number [phone]. Please advise. Best time of day caller can be reached: Any Patient advised that office/PCP has 24-48 business hours to return their call: No [facility] [id number] Telephone encounter Note* Telephone Encounter - Qi Almanzar MA - 08/21/2024 5:27 PM EDT Called patient and left voicemail regarding rx sent to pharmacy. Please relay message to patient. [facility] [id number] Miscellaneous Notes* Telephone Encounter - Qi Almanzar MA - 08/21/2024 5:27 PM EDT Called patient and left voicemail regarding rx sent to pharmacy. Please relay message to patient. * Telephone Encounter - Mari Molina RN - 08/21/2024 2:01 PM EDT S: Patient spoke with [facility] nurse regarding request for antibiotic before leaving [facility]. B: Seen in office on 08/15/24 for [...] Colds with no complications Protocols used: Common [id number]-TD documented in this [facility]06-09-[address] Mccann pended for dx and doctor's [facility]-2025 Telephone encounter Note* Telephone Encounter - Orin Lu - 08/21/2024 3:09 PM EDT Referral to Dr Mccann pended for dx and doctor's signature [facility] [id number] Miscellaneous Notes* Telephone Encounter - Orin Lu [...] 08/13/2024 10:21 AM EDT To: [facility] Clinical Crop Specialist No obvious signs of multiple myeloma on this lab work. However I am unsure of the cause of her anemia. After she sees gastroenterology for consideration for upper lower endoscopy we will follow her CBCs in a few months. She might need to see senior ios software engineer. ----- Message ----- From: [place] Sent: 08/05/2024 1:27 PM EDT To: Kory Ibarra DO documented in this encounterSMercy Health Defiance [id number] Telephone encounter Note* Telephone Encounter - Mari Molina RN - 08/21/2024 2:01 PM EDT S: Patient spoke with [facility] nurse regarding request for antibiotic before leaving [facility]. B: Seen in office on 08/15/24 for [...] Colds with no complications Protocols used: Common Wblt-EMWRV-DF [facility] [id number] History of Present illness Narrative* Kory Ibarra DO - 08/15/2024 10:00 AM EDT Images from the original note were not included. [facility] - [address] [facility] [phone] Visit type: Established Patient Reason for [...] iron deficient. Possible gammopathy. Willbe seeing the [facility] senior human resources representative in [place] in the near future Review of Systems [...] times daily., Disp: , Rfl: nystatin (Mycostatin) 352731 UNIT/GM powder, Apply topically 3 times daily., [...] Paternal Grandfather age 100 documented in this [facility]06-03-2025 History of Present illness Narrative* Kory Ibarra DO - 08/15/2024 10:00 AM EDT Images from the original note were not included. [facility] - [address] [facility] [address] Visit type: Established Patient Reason for [...] iron deficient. Possible gammopathy. Willbe seeing the [facility] senior human resources representative in [place] in the near future Review of Systems [...] times daily., Disp: , Rfl: nystatin (Mycostatin) 617641 UNIT/GM powder, Apply topically 3 times daily., [...] Paternal Grandfather age 100 documented in this [facility]06-03-2025 History of Present illness Narrative* Kory Ibarra DO - 08/15/2024 10:00 AM EDT Images from the original note were not included. [facility] - [address] [facility] [phone] Visit type: Established Patient Reason for [...] Heart failure with improved ejection fraction (HFimpEF) ([facility]) Comments: Stable, continue oxygen Permanent atrial fibrillation (HCC) Chronic obstructive pulmonary disease, unspecified COPD type ([facility]) Comments: Stable, continue Dulera and Spiriva, continue [...] iron deficient. Possible gammopathy. Willbe seeing the [facility] senior human resources representative in [place] in the near future Review of Systems [...] times daily., Disp: , Rfl: nystatin (Mycostatin) 163737 UNIT/GM powder, Apply topically 3 times daily., [...] Paternal Grandfather age 100 documented in this [facility]06-02-2025 Telephone encounter Note* Telephone Encounter - Pari [...] medication tab): 06/19/24 Updated/Validated preferred pharmacy: Yes [facility]/pharmacy #[id number] - [place], [place] - [address] [facility] Patient instructed to contact the pharmacy prior to picking up the medication: N/A [facility] [id number] Miscellaneous Notes* Telephone Encounter - Pari Hernandez [...] medication tab): 06/19/24 Updated/Validated preferred pharmacy: Yes [facility]/pharmacy #[id number] - [place], [place] - [address] [facility] Patient instructed [...] with you then. * Telephone Encounter - Katia Roldan - 08/02/2024 [...] patient from encounter: No documented in this [facility]06-02-2025 Telephone encounter Note* Telephone Encounter - Kerri Morse MA - 08/14/2024 10:24 AM EDT Placed call to patient. Unable to reach them by phone to discuss lab results. Left detailed messageto return call to discuss results. Please release information to patient [facility] [id number] Telephone encounter Note* Telephone Encounter - Kerri Morse MA - 08/14/2024 10:24 AM EDT ----- Message from Laura Bradley sent at 08/14/2024 7:30 AM EDT ----- ----- Message ----- From: Kory Ibarra DO Sent: 08/13/2024 10:21 AM EDT To: [facility] Clinical Crop Specialist No obvious signs of multiple myeloma on this lab work. However I am unsure of the cause of her anemia. After she sees gastroenterology for consideration for upper lower endoscopy we will follow her CBCs in a few months. She might need to see senior ios software engineer. ----- Message ----- From: Escobar Grvoe Sent: 08/05/2024 1:27 PM EDT To: Kory Ibarra DO [facility] HealthBdxnpb03-03-1535 NoteHNO ID: [id number] Author: MIRANDA MARION APRN.FINAL ASSEMBLY INSPECTOR Service: ? Author Type: Nurse Practitioner Type: [...] past surgical history on file. ALLERGIES Oxycodone, Ozcddts-Lhm-Wvo Reductase Inhibitors, and Tetanus And Diphtheria Toxoids [...] abnormality Dictated by : MD Miranda ARORA APRN.FINAL ASSEMBLY INSPECTOR History and Record Review External record(s) reviewed: prior outpatient record and prior labs/imaging. Disposition The patient [facility]. [facility] History of Present illness Narrative* Miranda Marion [...] past surgical history on file. ALLERGIES Oxycodone, Gghstuh-Txt-Pix Reductase Inhibitors, and Tetanus And Diphtheria Toxoids [...] patient was discharged. Procedures documented in [facility]Dun[facility] History of Present illness Narrative* Mukul Alcantar [...] PATIENT PRESENTS WITH AN IMPLANTABLE OR ATTACHED DOCUMENTATION COORDINATOR: No RADIOLOGY DEPARTMENT: General X-ray: Exam(s) Completed: Upper Extremity X- Ray(s): Elbow, right PERIPHERAL IV DATA: Not applicable SIGNED BY: Romario Bautista August 09, 2024 2:37 PM documented in this encounterDunlap [facility] Hospital05-28-2025 NoteHNO ID: [id number] Author: MUKUL ALCANTAR Tech Service: ? Author [...] PATIENT PRESENTS WITH AN IMPLANTABLE OR ATTACHED DOCUMENTATION COORDINATOR: No RADIOLOGY DEPARTMENT: General X-ray: Exam(s) Completed: Upper Extremity X-Ray(s): Elbow, right PERIPHERAL IV DATA: Not applicable SIGNED BY: Romario Bautista August 09, 2024 2:37 [facility]05-21-2025 Telephone encounter Note* Telephone Encounter - Kerri Morse MA - 08/02/2024 1:29 PM EDT Spoke with pt and she says she is getting her blood work done tmrw and has an apt with you on the 3rd and will discuss everything with you then. [facility] [id number] Telephone encounter Note* Telephone Encounter - Katia [...] to the patient from encounter: No T [facility] [id number] NoteStaff to call patient and notify her that reviewed her recent CBC. Again shows a persistent low platelet count. Might be due to Eliquis therapy but she needs referral to hematology as well. If she agrees [facility] NoteReferral to [facility] pended for doctor's signatureSKresge Eye Institute05-20-2025 Telephone encounter Note* Telephone Encounter - Orin Lu - 08/01/2024 5:16 PM EDT Referral to [facility] pended for doctor's signature [facility] [id number] Miscellaneous Notes* Telephone Encounter - Orin Lu - 08/01/2024 5:16 PM EDT Referral to [facility] pended for doctor's signature * Telephone Encounter - Orin Lu - 08/01/2024 5:08 PM EDT There are no Gastros at [facility]. Do you have someone else? * Telephone Encounter - Kerri Morse MA - 08/01/2024 4:24 PM EDT Spoke with pt and she says that referral to [facility] would be fine. * Telephone Encounter - Gifty Baker - 08/01/2024 1:33 PM EDT Name of caller: Alta Contact phone number: [phone] Relationship to Patient: patient Provider: Dr. Ibarra Practice: [facility] Chief Complaint/Reason for Call: Pt stated she has tried contacting Dr. Yu's office numerous times and can't get anyone. Pt wanted inform office, and see what PCP suggest. Please advise. Best time of day caller can be reached: Any Patient advised that office/PCP has 24-48 business hours to return their call: No documented in this [facility]05-20-2025 Telephone encounter Note* Telephone Encounter - Orin Lu - 08/01/2024 5:08 PM EDT There are no Gastros at [facility]. Do you have someone else? [facility] HealthOksnok07-37-6400 NoteSpoke with pt and she says that referral to [facility] be fine.[facility]05-20-2025 Telephone encounter Note * Telephone Encounter - Kerri Morse MA - 08/01/2024 4:24 PM EDT Spoke with pt and she says that referral to [facility] would be fine. [facility] [id number] Telephone encounter Note* Telephone Encounter - Gifty Baker - 08/01/2024 1:33 PM EDT Name of caller: Alta Contact phone number: [phone] Relationship to Patient: patient Provider: Dr. Ibarra Practice: [facility] Chief Complaint/Reason for Call: Pt stated she has tried contacting Dr. Yu's office numerous times and can't get anyone. Pt wanted inform office, and see what PCP suggest. Please advise. Best time of day caller can be reached: Any Patient advised that office/PCP has 24-48 business hours to return their call: No [facility] [id number] Noteatrial fibrillation Diffuse low voltage. -Poor R-wave progressionPremier HealthHuzlzw17-25-0698 History of Present illness Narrative* Benita Moon MD - 07/31/2024 11:20 AM EDT Images from the original note were not included. [facility] Card[facility] [address] [place] [address] [address] [facility] [address] Dept: [phone] Dept Loc: [phone] Visit type: Established : 1950 Chief Complaint: [...] to the ED. She was admitted to [facility] and her digoxin was permanently discontinued. She then developed tachypnea andwas sent to the ICU on NIV. She was treated for MSSA pneumonia and influenza A. Echocardiogram done05/08/2024 with ejection fraction of 60% with 1+ aortic regurgitation, 2+ mitral regurgitation, 4+ tricuspid regurgitation with RVSP 70 mmHg She followed up with Mayra for post hospital discharge. Since that visit, she presented to [facility] with worsening SOB and AF RVR [...] times daily., Disp: , Rfl: nystatin (Mycostatin) 369231 UNIT/GM powder, Apply topically 3 times daily., [...] Right atrium is moderately dilated. Echo at [facility] 06/03/24: Assessment and Plan: 1. Permanent atrial fibrillation (HCC) Permanent, nonvalvular. Heart rate remains controlled. On Eliquis 5 mg PO BID. No bleeding. -On Toprol 75 mg BID and diltiazem 60 mg every 8 hours. Will continue that. Will reassess LVEF withechocardiogram. [id number] Score for Atrial Fibrillation Stroke Risk Risk Factors Component Value C CHF Yes 1 H HTN Yes 1 A2 Age >= 75 No 0 D DM No 0 S2 Prior Stroke/TIA No 0 V Vascular Disease No 0 A Age 65-74 Yes, (78 y.o.) 1 Sc Sex female 1 [id number] Score 4 2. Anticoagulant long-term use On [...] report do cumented from May 2024 at [facility] where her TR was graded as [...] 04/27/24; LVEF reported 40% per echo at [facility] in may of 2024, this was probably in the setting of A-fib with RVR. Recommend an echocardiogram to reevaluate LVEF now that her heart ratesare well- controlled. This will also help us determine whether the Cardizem needs to be continued (that was started at [facility].) -Continue Lasix 40 mg BID with potassium supplementation -Continue lisinopril 20 mg daily -Continue metoprolol 75 mg BID Most recent creatinine was 0.71 and K was 3.4 in June 5. Aortic Insufficiency mild per echo 04/27/24 Recommend good blood pressure control. RTC In 6 months documented in this encounterSMercy Health Defiance [id number] Telephone encounter Note* Telephone Encounter - Rosa [...] prior to picking up the medication: N/A [facility] HealthVubstu60-06-0290 Miscellaneous Notes* Telephone Encounter - Rosa Mariee [...] up the medication: N/A documented in this [facility]04-21-2025 Miscellaneous Notes* Telephone Encounter - Orin Lu - 07/03/2024 8:06 AM EDT Referral pended for dx and doctor's signature * Telephone Encounter - Orin Lu - 07/03/2024 8:04 AM EDT Images from the original note were not included. Kory Ibarra DO 07/02/2024 9:23 AM EDT Back to [facility] I do not agree with [...] If she agrees Post referral to either [facility] or Dr. Yu in [place]. There is a slight abnormality in your [...] ordered today, she might need to see senior ios software engineer as well. But for now, she needs the GI consultation. * Telephone Encounter - Orin Lu - 07/03/2024 8:03 AM EDT . documented in this [facility]04-21-2025 NoteReferral pended for dx and doctor's signatureSKresge Eye Institute04-21-2025 Telephone encounter Note * Telephone Encounter - Orin Lu - 07/03/2024 8:06 AM EDT Referral pended for dx and doctor's signature [facility] HealthRxdlrh87-61-2033 Telephone encounter Note* [facility] 07/03/2024 8:04 AM EDT Images from the original note were not included. Kory Ibarra DO 07/02/2024 9:23 AM EDT Back to Top I do not agree with her not getting the GI consultation for upper and lower endoscopy. I am unsure why she is so anemic. Place referral to Dr. Yu or [facility] as directed and I encourage her to [...] If she agrees Post referral to either [facility] or Dr. Yu in [place]. There is a slight abnormality in your [...] ordered today, she might need to see senior ios software engineer as well. But for now, she needs the GI consultation. [facility] HealthVxhkyi08-40-7480 Telephone encounter Note* Telephone Encounter - Orin Lu - 07/03/2024 8:03 AM EDT . [facility] HealthMlzlfu63-94-0939 Miscellaneous Notes* Addendum Note - Davis Kern - 06/23/2024 12:30 PM EDTAddended by: DAVIS KERN on: 06/30/2024 04:36 PM Modules accepted: Orders documented in this encounterSMercy Health Defiance HospitalPwzawa16-67-1182 Note* Addendum Note - Davis Kern - 06/23/2024 12:30 PM EDTAddended by: DAVIS KERN on: 06/30/2024 04:36 PM Modules accepted: Orders [facility] HealthNpfsew26-42-0396 Telephone encounter Note* Telephone Encounter - Laura Segundo MA - 06/23/2024 11:50 AM EDT Provider has not reviewed the results. Once reviewed by the provider the office will reach out to patient. [address] StreetYtslax01-91-1103 Miscellaneous Notes* Telephone Encounter - Laura Segundo MA - 06/23/2024 11:50 AM EDT Provider has not reviewed the results. Once reviewed by the provider the office will reach out to patient. * Telephone Encounter - Nestor Hooper - 06/23/2024 11:47 AM EDT Name of caller: Alta Baker Contact phone number: [phone] Relationship to Patient: patient Provider: Dr. Ibarra Practice: [facility] Chief Complaint/Reason for Call: Patient would like to have a call back regarding her lab results from 06.21.2024. Please advise, thank you. Best time of day caller can be reached: Any Patient advised that office/PCP has 24-48 business hours to return their call: Yes documented in this encounterSCrystal Ville [address]Hhgoth73-49-5748 Telephone encounter Note* Telephone Encounter - Nestor Hooper - 06/23/2024 11:47 AM EDT Name of caller: Alta Baker Contact phone number: [phone] Relationship to Patient: patient Provider: Dr. Ibarra Practice: [facility] Chief Complaint/Reason for Call: Patient would like to have a call back regarding her lab results from 06.21.2024. Please advise, thank you. Best time of day caller can be reached: Any Patient advised that office/PCP has 24-48 business hours to return their call: Yes [facility] [id number] History of Present illness Narrative* Kory Stratton Barbrarajwinder, - 06/19/2024 10:00 AM EDT Images from the original note were not included. [facility] - [address] [facility] [address] Visit type: Established Patient Reason for Visit: Hospital Follow-up Assessment / Plan: Alta was seen today for hospital follow-up. Diagnoses and all orders for this visit: Heart failure with improved ejection fraction (HFimpEF) ([facility]) (Primary) Comments: Improved on Lasix, and lisinopril [...] asthma, pulmonary artery hypertension was admitted at [facility] on 06/02 for shortness of breath [...] since February but she has not undergone LANDSCAPE SPECIALIST checkup for appropriate workup. Review of Systems [...] Apply topically 2 times daily. nystatin (Mycostatin) 632974 UNIT/GM powder Apply topically 3 times daily. [...] Heart failure with improved ejection fraction (HFimpEF) ([facility]) Asthma Venous insufficiency History of pulmonary embolism Anticoagulant long-term use Atrial fibrillation (HCC) Mitral regurgitation Morbidly obese ([facility]) Allergic rhinitis Pulmonary HTN ([facility]) CHRISTIANNE on CPAP Depression COPD (chronic obstructive pulmonary disease) ([facility]) Cor pulmonale, chronic (HCC) Major depressive disorder [...] recent hospital records again. documented in this [facility]2025 History of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 Angelina Julian RN - 12/13/2023 12:30 PM EDT I called and LMOM asking to see if Alta is at the ER (it looks like ER encounter, but nothing under it); it does not appear she had a HF excerbation when they saw her at [place], but wanted to see if any HF going on in addition to current symptoms. Would agree with ER recommendation due to her symptoms (SOB, lightheadedness) getting worse with bleeding and because her blood counts looking kindalow at [place] (could be dropping lower). Please call us back to let us know message received and please update us if she did go to the ER. [facility] HealthJjofcs81-70-1252 Telephone encounter Note* Telephone Encounter - Angelina Julian RN - 12/13/2023 12:15 PM EDT Images from the original note were not included. Reviewed records; appears no HF exacerbation-appears COVID Pneumonia with acute respiratory failure. No cardiology consult or echo obtained. Looks like her HGB down to 9.7; platelets noted to be as low as 63. Would agree with reaching out to PCP/ER evaluation. [facility] HealthVqvcaj54-87-5091 Telephone encounter Note* Telephone Encounter - Angelina Julian RN - 12/13/2023 10:25 AM EDT Reviewed chart briefly; appears patient at [facility] ER; agreed that patient reached out to PCP. Will review records from [place] to see if cardiology f/up is warranted. [facility] HealthZsfcuv68-25-2919 Telephone encounter Note* Telephone Encounter - Rhiannon Graf MA - 12/13/2023 10:07 AM EDT Noted [facility] HealthLnhnxg06-33-6874 Miscellaneous Notes* Telephone Encounter - Rhiannon Graf [...] Advised ED today. Plans on going to [facility] today. Has follow up next week due to recent hospital admission with Covid Pneumonia. Advised to update office with outcome of ED after evaluation. Reason for Disposition Patient sounds very sick or weak to the triager Protocols used: Urine - Blood In-ADULT-[place] documented in this encounterSMercy Health Defiance HospitalFhzqsj63-98-5196 Telephone encounter Note* Telephone Encounter - Amara Langford - 12/13/2023 10:03 AM EDT Received records from [facility], and e-mailed to nurse for review. [facility] HospitalRevolution FoodsJwyppq18-61-6637 Telephone encounter Note* Telephone Encounter - Chinyere [...] Advised ED today. Plans on going to [facility] today. Has follow up next week due to recent hospital admission with Covid Pneumonia. Advised to update office with outcome of ED after evaluation. Reason for Disposition Patient sounds very sick or weak to the triager Protocols used: Urine - Blood In-ADULT-[place] [facility] Growqm56-49-0753 Telephone encounter Note* Telephone Encounter - Amara Langford - 12/13/2023 9:22 AM EDT Daughter called to schedule with LEROY today. She was in [facility] last week for COVID and Pneumonia. [...] should be seen in our office. Called [facility], spoke to Wilma, and records will be faxed to our office. [facility] Abjrou21-63-1440 [facility] Medical Records Department [address] [place] [address] Discharge Summary 12/03/23 1110 MR#: [id number] Acct: [id number] Name: ALTA BAKER Rep #: [id number] : 1950 73 From: Luna Bustamante MD PCP: Dr. Davis Irene, DO Status:DIS IN [facility] Prov[facility] Date of Admission: 12/01/23 Date of [...] in the ED were BP of 151/91, PA of 89, RR of 22 and temp [...] a prescription for p.o. (more content not included)...[facility]09-18-2024 Telephone encounter Note* Telephone Encounter - Rhiannon Graf MA - 12/01/2023 10:18 AM EDT Noted [facility] HealthEwltbu45-99-8048 Miscellaneous Notes* Telephone Encounter - Rhiannon Graf MA - 12/01/2023 10:18 AM EDT Noted * Telephone Encounter - Zaynab Caraballo RN - 12/01/2023 9:56 AM EDT S: Dtr Rhiannon calling [facility] for URI sx B: 1 week [...] still present when not coughing Protocols used: Tsxup-JVFYI-OV documented in this [facility]09-18-2024 Telephone encounter Note* Telephone Encounter - Zaynab Caraballo RN - 12/01/2023 9:56 AM EDT S: Dtr Rhiannon calling [facility] for URI sx B: 1 week [...] still present when not coughing Protocols used: Kbuiu-JPKYN-HZ [facility] Vvbarw49-03-6671 Telephone encounter Note* Telephone Encounter - Katia [...] prior to picking up the medication: Yes [facility] Zfteci82-25-7010 Miscellaneous Notes* Telephone Encounter - Katia Roldan [...] up the medication: Yes documented in this encounterSMercy Health Defiance HospitalYgrqzf73-55-2526 Telephone encounter Note* Telephone Encounter - Kerri oMrse MA - 11/17/2023 2:52 PM EDT Rx loaded [facility] HealthLdhuak95-83-7370 Miscellaneous Notes* Telephone Encounter - Kerri Morse [...] up the medication: Yes documented in this encounterSMercy Health Defiance HospitalBgvzwm30-21-0377 Telephone encounter Note* Telephone Encounter - Thomas [...] prior to picking up the medication: Yes [facility] HealthWotzth91-71-0218 Telephone encounter Note* Telephone Encounter - Selma Stone MA - 11/16/2023 3:22 PM EDT Recent Visits Date Type Provider Dept 03/25/23 Office Visit Kory Ibarra DO [facility] Showing recent visits within past 365 [...] medications from any other provider? N/A None [facility] HealthHxixql61-94-9427 Miscellaneous Notes* Telephone Encounter - Selma Stone MA - 11/16/2023 3:22 PM EDT Recent Visits Date Type Provider Dept 03/25/23 Office Visit Kory Ibarra DO [facility] Showing recent visits within past 365 days [...] other provider? N/A None documented in this encounterSMercy Health Defiance HospitalZphjcm32-51-3633 Telephone encounter Note* Telephone Encounter - Kerri Morse MA - 11/16/2023 1:20 PM EDT Placed call to patient. Two patient identifers confirmed. Was able to speak to patient. All concerns in message have been addressed. No questions at this time. Call ended [facility] HealthIicgny03-62-3029 Miscellaneous Notes* Telephone Encounter - Kerri Morse MA - 11/16/2023 1:20 PM EDT Placed call to patient. Two patient identifers confirmed. Was able to speak to patient. All concerns in message have been addressed. No questions at this time. Call ended * Telephone Encounter - Nicolle Valdivia - 11/16/2023 11:24 AM EDT Name of caller: Alta Contact phone number: [phone] Relationship to Patient: patient Provider: Dr Ibarra [...] return their call: Yes documented in this encounterSMercy Health Defiance HospitalKajcsy10-45-1959 Telephone encounter Note* Telephone Encounter - Nicolle Shea - 11/16/2023 11:24 AM EDT Name of caller: Alta Contact phone number: [phone] Relationship to Patient: patient Provider: Dr Ibarra [...] business hours to return their call: Yes [facility] HealthKbquoe38-18-0304 Telephone encounter Note* Telephone Encounter - Laurie Burgess LPN - 10/06/2023 3:37 PM EDT RX loaded Next ov 11/17/23 [facility] HealthQnxtsr77-82-7873 Miscellaneous Notes* Telephone Encounter - Laurie Burgess [...] doctor or facility: No Ordering provider: Dr. Ibrara Date of last office visit: 03.25.2023 Date of next office visit: 11.17.2023 Date of last refill: (see medication tab): 05.18.2023 Updated/Validated preferred pharmacy: Yes Patient instructed to contact the pharmacy prior to picking up the medication: Yes documented in this [facility]07-24-2024 Telephone encounter Note* Telephone Encounter - Nestor [...] prior to picking up the medication: Yes [facility] HealthRcuzpy09-75-9748 Telephone encounter Note* Telephone Encounter - Pari Hernandez - 10/04/2023 3:18 PM EDT Name of caller: Alta Contact phone number: [phone] Relationship to Patient: patient Provider: Dr. Ibarra Practice: [facility] Chief Complaint/Reason for Call: Pt's last prescribed water pill was called in for 30 days, pt states it was ment to be for 90 [id number] [place], [place] - [address] [facility]. Best time of day caller can be reached: Any Patient advised that office/PCP has 24-48 business hours to return their call: No [facility] HealthJhyoqt36-71-5094 Miscellaneous Notes* Telephone Encounter - Pari Hernandez - 10/04/2023 3:18 PM EDT Name of caller: Alta Contact phone number: [phone] Relationship to Patient: patient Provider: Dr. Ibarra Practice: [facility] Chief Complaint/Reason for Call: Pt's last prescribed water pill was called in for 30 days, pt states it was ment to be for 90 [id number] - [place], [place] - [address] [facility]. Best time of day caller can be reached: Any Patient advised that office/PCP has 24-48 business hours to return their call: No * Telephone Encounter - Laurie Burgess LPN - 10/04/2023 1:35 PM EDT RX loaded Next ov 11/17/23 * Telephone Encounter - Nicolle Valdivia - 10/04/2023 12:27 PM EDT Medication name: furosemide (Lasix) 40 MG tablet [[id number]] Order Details Dose, Route, Frequency: As Directed [...] up the medication: Yes documented in this encounterSMercy Health Defiance HospitalUibacw95-34-5951 Telephone encounter Note* Telephone Encounter - Laurie Burgess LPN - 10/04/2023 1:35 PM EDT RX loaded Next ov 11/17/23 [facility]Cxwlps34-77-5228 Telephone encounter Note* Telephone Encounter - Angelina [...] She was thankful for the call back. [place] [id number] Miscellaneous Notes* Telephone Encounter - Angelina Julian [...] Antibiotic before having four teeth extracted by [facility] on 10/21/23. documented in this encounterSMercy Health Defiance HospitalKcumer97-07-2570 Telephone encounter Note* Telephone Encounter - Nicolle Valdivia - 10/04/2023 12:27 PM EDT Medication name: furosemide (Lasix) 40 MG tablet [[id number]] Order Details Dose, Route, Frequency: As Directed [...] prior to picking up the medication: Yes [facility]Sntlwk78-54-3016 Telephone encounter Note* Telephone Encounter - Amara Langford - 10/04/2023 12:20 PM EDT Patient called to ask if she should take Antibiotic before having four teeth extracted by [facility] on 10/21/23. [facility] Reveuu31-33-4317 Telephone encounter Note* Telephone Encounter - Laura Segundo MA - 09/07/2023 8:15 AM EDT Recent Visits Date Type Provider Dept 03/25/23 Office Visit Kory Ibarra DO [facility] 09/22/22 Office Visit Kory Ibarra DO [facility] Showing recent visits within past 365 [...] 07/01/2021 CHOLESTEROLT 105 03/25/2023 TRIG 141 07/01/2021 [facility] Cmelab95-46-4786 Miscellaneous Notes* Telephone Encounter - Laura Segundo MA - 09/07/2023 8:15 AM EDT Recent Visits Date Type Provider Dept 03/25/23 Office Visit Kory Ibarra DO [facility] 09/22/22 Office Visit Kory Ibarra DO [facility] Showing recent visits within past 365 days and meeting all other requirements Future Appointments Date Type Provider Dept 11/17/23 Appointment Kory Ibarra DO [facility] Showing future appointments within next 90 [...] 03/25/2023 TRIG 141 07/01/2021 documented in this encounterSMercy Health Defiance HospitalRaqyvz62-44-2544 Telephone encounter Note* Telephone Encounter - Gifty [...] of last refill (see medication tab): 03.25.23 [facility]Qodtoq16-49-8083 Miscellaneous Notes* Telephone Encounter - Gifty Baker [...] (see medication tab): 03.25.23 documented in this [facility]05-29-2024 NoteAtrial fibrillation Low voltage in limb leads. Poor R wave progressionPremier HealthJsjdul56-54-4737 History of Present illness Narrative* Benita Moon MD - 08/11/2023 10:40 AM EDT [facility] [address] [place] [address] [address] [facility] [address] Dept: [phone] Dept Loc: [phone] Visit type: Established : 1950 Chief Complaint: [...] f/u per Dr. Ly Asthma Atrial fibrillation ([facility]) 2009 cardioversion 08/22 and 08/23 ( Malachi)-- [...] Obesity CHRISTIANNE on CPAP 2009 Pulmonary HTN ([facility]) 2016 Severe per ECHO Venous insufficiency hx [...] Disp: 360 tablet, Rfl: 1 nystatin (Mycostatin) 488532 UNIT/GM powder, Indications: as directed under breasts [...] (dig 1.0 on 03/25/23) CBC stable 03/25/23 [id number] Score for Atrial Fibrillation Stroke Risk Risk Factors Component Value C CHF Yes 1 H HTN Yes 1 A2 Age >= 75 No, (71 y.o.) 0 D DM No 0 S2 Prior Stroke/TIA No 0 V Vascular Disease No 0 A Age 65-74 Yes, (71 y.o.) 1 Sc Sex female 1 [id number] Score 4 2. Anticoagulant long-term use On [...] RTC In 6 months documented in this [facility]03-15-2024 History of Present illness Narrative* Delaney Arceo RN - 05/28/2023 10:47 AM EDT ACM KRISTI RN Reason for review or outreach: Medication Adherence review per request of payer Medication Adherence Review Details: Cholesterol FYI / ACTION REQUEST: Patient identified by name and date of Summary/Findings of review: Patient is seeing a Non-[facility] PCP at [facility] Patient Attributed To: ALEJANDRINA Payer: [facility] Action Taken: Data submitted to Payer Other Contact made with patient: No, Chart review only. Signature: Delaney Arceo RN documented in [facility]Dunlap [facility]03-13-2024 Telephone encounter Note * Telephone Encounter - Kerri Morse MA - 05/26/2023 11:41 AM EDT Rx reloaded Patient says she has been out of medication now for 4 days and does not want to deal with mail order anymore and would like this script sent to [facility] thanks. [facility] HealthQomxnn58-08-9810 Miscellaneous Notes* Telephone Encounter - Kerri Morse MA - 05/26/2023 11:41 AM EDT Rx reloaded Patient says she has been out of medication now for 4 days and does not want to deal with mail order anymore and would like this script sent to [facility]. documented in this encounterSMercy Health Defiance HospitalLlnbbi71-77-8906 Telephone encounter Note* Telephone Encounter - Khurram [...] prior to picking up the medication: Yes [facility] HealthDjqsft57-34-3355 Miscellaneous Notes* Telephone Encounter - Khurram Thomas [...] up the medication: Yes documented in this encounterSMercy Health Defiance HospitalTlfqsg24-21-3003 Telephone encounter Note* Telephone Encounter - Pari [...] medication tab): 03/25/23 Updated/Validated preferred pharmacy: Yes [facility] [address] Patient instructed to contact the pharmacy prior to picking up the medication: Yes [facility]Akxasp64-07-7813 Miscellaneous Notes* Telephone Encounter - Pari G [...] medication tab): 03/25/23 Updated/Validated preferred pharmacy: Yes [facility] [address] Patient instructed to contact the pharmacy prior to picking up the medication: Yes documented in this [facility]01-30-2024 Telephone encounter Note* Telephone Encounter - Katia Roldan - 04/13/2023 4:37 PM EST Name of caller: Alta Contact phone number: [phone] Relationship to Patient: patient Provider: Dr. Khalil [...] business hours to return their call: Yes [facility]Rkoobk43-36-0668 Miscellaneous Notes* Telephone Encounter - Katia Roldan - 04/13/2023 4:37 PM EST Name of caller: Alta Contact phone number: [phone] Relationship to Patient: patient Provider: Dr. Khalil [...] return their call: Yes documented in this encounterSMercy Health Defiance HospitalHnaurx59-37-2605 Telephone encounter Note* Telephone Encounter - Kerri Morse MA - 04/12/2023 8:57 AM EST Rx loaded [facility]Egcbpf59-10-8567 Miscellaneous Notes* Telephone Encounter - Kerri Morse [...] up the medication: No documented in this encounterSMercy Health Defiance HospitalOsxcah08-99-8322 Telephone encounter Note* Telephone Encounter - Bruno [...] prior to picking up the medication: No [facility] HealthRfjdub23-27-4520 Telephone encounter Note* Telephone Encounter - Una Rabago - 03/25/2023 2:55 PM EST Orders pended for doctor signature [facility]Vxfyjn97-58-1766 Miscellaneous Notes* Telephone Encounter - Una Rabago - 03/25/2023 2:55 PM EST Orders pended for doctor signature documented in this [facility]01-11-2024 History of Present illness Narrative* Kory Chayito Ibarra, - 03/25/2023 10:30 AM EST Images from the original note were not included. [facility] [address] [place] [address] [address] [facility] [address] Visit type: Established Patient Reason for [...] TIMES DAILY 180 tablet 3 nystatin (Mycostatin) 815212 UNIT/GM powder Indications: as directed under breasts [...] BY MOUTH TWICE DAILY @ 9AM & 6RG225 tablet 0 [DISCONTINUED] lisinopril 20 MG tablet [...] tibial pulses are adequate documented in this [facility]01-11-2024 Instructions* Patient Instructions* Kory Ibarra DO - 03/25/2023 10:30 AM EST Please acquire mammogram as discussed documented in this [facility]01-02-2024 Telephone encounter Note* Telephone Encounter - [...] medication tab): 11/24/2022 Updated/Validated preferred pharmacy: Yes [facility] Patient instructed to contact the pharmacy prior to picking up the medication: No [facility]Pzpaaz21-37-4802 Miscellaneous Notes* Telephone Encounter - Blossom Rayo [...] medication tab): 11/24/2022 Updated/Validated preferred pharmacy: Yes [facility] Patient instructed to contact the pharmacy prior to picking up the medication: No documented in this [facility]12-26-2023 Telephone encounter Note* Telephone Encounter - Selma Stone MA - 03/09/2023 11:05 AM EST Recent Visits Date Type Provider Dept 09/22/22 Office Visit DO Jason Wilson 03/24/22 Office Visit DO Jason Wilson Showing recent visits within past 365 days and meeting all other requirements Future Appointments Date Type Provider Dept 03/25/23 Appointment DO Jason Wilson [facility] Showing future appointments within next 90 [...] controlled medications from any other provider? N/A [place] [facility] Miscellaneous Notes* Telephone Encounter - Selma Stone MA - 03/09/2023 11:05 AM EST Recent Visits Date Type Provider Dept 09/22/22 Office Visit DO Jason Wilson 03/24/22 Office Visit DO Jason Wilson Showing recent visits within past 365 days and meeting all other requirements Future Appointments Date Type Provider Dept 03/25/23 Appointment DO Jason Wilson [facility] Showing future appointments within next 90 [...] any other provider? N/A documented in this [facility]11-21-2023 History of Present illness Narrative* Chelo Huitron APRN - FINAL ASSEMBLY INSPECTOR - 02/02/2023 11:15 AM EST Images from the original note were not included. [facility] [address] [facility] [address] Dept: [phone] Dept Visit type: Established : 1950 Reason for Visit: 6 Month Follow-up Assessment and Plan 1. Permanent atrial fibrillation (HCC) Assessment & Plan: Permanent, nonvalvular. [id number] equals 4. Remains rate controlled today. -Continue [...] from 2021 with a EF of 59%. [place] to be tachycardia mediated. 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 EF 20 to 25% in 2017 and improved to 45%. Most recent echocardiogram from 2021 with a EF of 59%. [place] to be tachycardia mediated. No current heart failure symptoms and euvolemic on physical exam. -Continue metoprolol, lisinopril, Lasix [id number] Evaluation + Plan note* Assessment & Plan Note - MARIUSZ Case CNP - 02/02/2023 7:32 AM ESTAssociated Problem(s): CHRISTIANNE on CPAP Continue CPAP [place] [id number] Evaluation + Plan note* Assessment & Plan Note - MARIUSZ Case CNP - 02/02/2023 7:32 AM ESTAssociated Problem(s): Pulmonary HTN (HCC) Moderate tricuspid regurgitation with pulmonary hypertension felt to be multifactorial secondary toobesity and CHRISTIANNE. 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 EF 20 to 25% in 2017 and improved to 45%. Most recent echocardiogram from 2021 with a EF of 59%. [place] to be tachycardia mediated. No current heart [...] ESTAssociated Problem(s): Atrial fibrillation (HCC) Permanent, nonvalvular. [id number] equals 4. Remains rate controlled today. -Continue metoprolol, digoxin -Continue Eliquis 5 mg p.o. twice daily -CBC and BMP every 6 months, due March 2023 documented in this [facility]11-21-2023 Evaluation + Plan note* Assessment & Plan Note - MARIUSZ Case CNP - 02/02/2023 7:31 AM ESTAssociated Problem(s): Encounter for long-term (current) use of high-risk medication Remains on digoxin. Dig level from July 2022 stable at 1.1. -Yearly dig level, due July 2023 [facility]11-21-2023 Evaluation + Plan note* Assessment & Plan Note - MARIUSZ Case CNP - 02/02/2023 7:30 AM ESTAssociated Problem(s): Anticoagulant long-term use Remains on Eliquis with no abnormal bleeding. CBC and BMP September 2022 stable. -CBC and BMP every 6 months, due March 2023 and ordered today [facility]11-21-2023 Evaluation + Plan note* Assessment & Plan Note - MARIUSZ Case CNP - 02/02/2023 7:29 AM ESTAssociated Problem(s): Atrial fibrillation (HCC) Permanent, nonvalvular. [id number] equals 4. Remains rate controlled today. -Continue metoprolol, digoxin -Continue Eliquis 5 mg p.o. twice daily -CBC and BMP every 6 months, due March 2023 [facility]10-17-2023 History of Present illness Narrative* Alannah Reed [...] past surgical history on file. ALLERGIES Oxycodone, Rmcrzbj-Uoe-Uws Reductase Inhibitors, and Tetanus And Diphtheria Toxoids [...] illness Alannah Reed APRN.FLORA [facility] Instructions* Patient Instructions* Alannah Reed APRN.CNP [...] Discussed expected course of illness Alannah Reed APRN.FINAL ASSEMBLY INSPECTOR Adult Sinusitis Patient Education What is Sinusitis? Sinusitis [lykh-hja-gbmy-tis] is inflammation of the sinuses or swelling [...] help. You may be instructed to take vzdj-bfj-oalqfwu medications for symptoms. including fever reducers acetaminophen or ibuprofen, nasal saline spray, cough and cold preparations and decongestants as prescribed by the physician, nurse practitioner or physician administrative sales assistant. Self-Care and Prevention: Rest Fluids for hydration Good hand washing Humidifier Avoid smoking and exposure to second hand smoke Avoid sick contacts [facility]07[facility] History of Present illness Narrative* Kory Stratton Fred, - 09/22/2022 10:30 AM EDT Images from the original note were not included. [facility] [address] [address] Dept: [phone] Dept Chief Complaint: Alta Baker is an [...] TIMES DAILY 180 tablet 1 nystatin (Mycostatin) [id number] UNIT/GM powder Indications: as directed under breasts [...] loss and calorie restriction documented in this [facility]07-11-2023 Instructions* Patient Instructions* Kory Ibarra DO [...] Recommendations: A preventive eye exam by an program management specialist is recommended every 1-2 years to screen for glaucoma, cataracts, macular degeneration, and other eye disorders. A preventive dental visit is recommended every 6 months. Try to get at least 150 minutes of exercise per week or 10,000 steps per day on a pedometer. You need 1200-1500mg of calcium and 0027-2225 international units of vitamin D per day. [...] bicycle or a motorcycle documented in this [facility] [id number] Telephone encounter Note* Telephone Encounter - Laurie Burgess LPN - 09/09/2022 7:51 AM EDT Patient has appointment 09/22/22 [id number] Miscellaneous Notes* Telephone Encounter - Laurie Burgess [...] Dispensed: 180 Refills: 0 documented in this encounterSMercy [facility] [id number] Telephone encounter Note* Telephone Encounter - Kory Ibarra DO - 09/08/2022 5:24 PM EDT Refills completed, patient due for checkup in September [id number] Miscellaneous Notes* Telephone Encounter - Kory Ibarra [...] Dispensed: 180 Refills: 0 documented in this [facility]06-27-2023 Telephone encounter Note* Telephone Encounter - Estefani Thomas LPN - 09/08/2022 5:57 AM EDT Last appointment 03/24/2022 , Next appointment is 09/22/2022 Digoxin Last filled 06/16/22 Dispensed: 90 Refills: 0 Sertraline Last filled 06/16/22 Dispensed: 90 Refills: 0 Metoprolol Last filled 06/16/22 Dispensed: 90 Refills: 0 Lisinopril Last filled 06/16/22 Dispensed: 90 Refills: 0 Furosemide Last filled 06/16/22 Dispensed: 180 Refills: 0 [id number] Telephone encounter Note* Telephone Encounter - Kerri Morse MA - 06/16/2022 3:52 PM EDT Rx loaded [id number] Miscellaneous Notes* Telephone Encounter - Kerri Morse MA - 06/16/2022 3:52 PM EDT Rx loaded documented in this encounterSMercy [facility] Defiance [id number] History of Present illness Narrative* Kory Ibarra DO - 03/24/2022 10:40 AM EST Images from the original note were not included. [address] [address] Visit type: Established Patient Reason for Visit: [...] tartrate (Lopressor) 100 MG tablet nystatin (Mycostatin) [id number] UNIT/GM powder Indications: as directed under breasts [...] failure with borderline preserved ejection fraction (CMS/HCC) ([facility]) Cough variant asthma Venous insufficiency Abnormal mammogram [...] Future - Lipid panel [facility] Diagnosis Chronic atrial fibrillation (HCC) [...] mitral valve regurgitation documented in this encounter [employer] Phone: Evaluation note* Diagnosis Permanent atrial fibrillation (HCC) Atrial fibrillation documented in this encounter [facility] Phone: Evaluation note* Diagnosis Onset Date Resolution Status Acute bronchospasm acute Acute hyperglycemia acute Acute respiratory failure with hypoxia acute Atrial fibrillation with RVR acute [facility] Work Phone: Evaluation note* Diagnosis CHRISTIANNE on CPAP Cough variant asthma RSV (respiratory syncytial virus infection) Respiratory syncytial virus (RSV) documented in this encounter [facility] [employer] note* Diagnosis CHRISTIANNE on CPAP RSV (respiratory syncytial virus infection) Respiratory syncytial virus (RSV) [facility] Diagnosis CHRISTIANNE on CPAP RSV (respiratory syncytial virus infection) Respiratory syncytial virus (RSV) documented in this encounter [facility] [employer] note* Diagnosis Encounter for subsequent annual wellness [...] health care facility documented in this encounter [facility] [employer] note* Diagnosis Longstanding persistent atrial fibrillation (CMS/HCC) (HCC)- Primary documented in this [facility]* Diagnosis Bacterial sinusitis- Primary Unspecified sinusitis (chronic) [facility]* Diagnosis Permanent atrial fibrillation (HCC)- Primary Atrial fibrillation Anticoagulant long-term use Encounter for long-term (current) use of anticoagulants Encounter for long-term (current) use of high-risk medication Encounter for long-term (current) use of other medications Pulmonary HTN (HCC) CHRISTIANNE on CPAP 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) documented in this encounter [facility] [employer] note* Diagnosis CHRISTIANNE on CPAP RSV (respiratory syncytial virus infection) Respiratory syncytial virus (RSV) [facility]* Diagnosis Essential hypertension- Primary Unspecified essential hypertension Hypercholesteremia Pure hypercholesterolemia Anticoagulant long-term use Encounter for long-term (current) use of anticoagulants Major depressive disorder, recurrent, mild (HCC) Major depressive disorder, recurrent episode, mild Permanent atrial fibrillation (HCC) Atrial fibrillation Eyelid lesion, benign Unspecified disorder of eyelid Cough variant asthma Breast cancer screening by mammogram documented in this encounter [facility]* Diagnosis Eyelid lesion, benign Unspecified disorder of eyelid [facility]* Diagnosis CHRISTIANNE on CPAP RSV (respiratory syncytial virus infection) Respiratory syncytial virus (RSV) documented [facility]* Diagnosis Breast cancer screening by mammogram documented in this encounter [facility]* Diagnosis Palpitations documented in this encounter [facility]* Diagnosis Atrial fibrillation, unspecified type (HCC)- Primary documented in this encounter [facility]* Diagnosis Atrial fibrillation, unspecified type (HCC)- Primary documented in this encounter [facility]* Diagnosis Leukocytosis, unspecified type- Primary documented in this encounter [facility]* Diagnosis Leukocytosis, unspecified type [facility]* Diagnosis Postmenopausal vaginal bleeding- Primary CHRISTIANNE on CPAP History of pneumonia Personal history of pneumonia (recurrent) Pulmonary emphysema, unspecified emphysema type (HCC) History of COVID-19 Anticoagulant long-term use Encounter for long-term (current) use of anticoagulants Permanent atrial fibrillation (HCC) Atrial fibrillation Thrombocytopenia (HCC) Unspecified thrombocytopenia Nasal bleeding Epistaxis documented in this encounter [facility]* Diagnosis Postmenopausal vaginal bleeding documented in this encounter [facility]* Diagnosis Permanent atrial fibrillation [...] Unspecified essential hypertension documented in this encounter [facility] note* Diagnosis Pain- Primary Generalized pain documented in this [facility] note* Diagnosis Permanent atrial fibrillation [...] without sciatica- Primary documented in this encounter [facility] note* Diagnosis Permanent atrial fibrillation (HCC)- Primary [...] failure type (HCC) documented in this encounter [facility] note* Diagnosis Permanent atrial fibrillation (HCC)- Primary [...] Bandemia [facility]* Diagnosis Permanent atrial fibrillation [...] without sciatica Bandemia documented in this encounter [facility]* Diagnosis Permanent atrial fibrillation [...] pulmonary heart disease documented in this encounter [facility]* Diagnosis Chronic pain of left knee- Primary CHRISTIANNE on CPAP Cough variant asthma Hyperglycemia Other abnormal glucose Essential hypertension Unspecified essential hypertension Longstanding persistent atrial fibrillation (CMS/HCC) (HCC) Hypercholesteremia Pure hypercholesterolemia documented in this encounter [facility]* Diagnosis Permanent atrial fibrillation [...] COPD type (HCC) [facility]* Diagnosis Permanent atrial fibrillation (HCC)- Primary [...] Primary Atrial fibrillation [facility]* Diagnosis Permanent atrial fibrillation (HCC)- Primary [...] venous (peripheral) insufficiency documented [facility] this [facility]* Diagnosis Permanent atrial fibrillation (HCC)- Primary [...] (HCC) Atrial fibrillation [facility]* Diagnosis Permanent atrial fibrillation (HCC)- Primary [...] vertebra, unspecified lumbar vertebral level, initial encounter ([facility]) Pulmonary HTN (HCC) Chronic obstructive pulmonary disease, unspecified COPD type ([facility]) Severe malnutrition (CMS/HCC) (HCC) Nutritional marasmus documented in this encounter [facility]* Diagnosis Permanent atrial fibrillation (HCC)- Primary [...] Other follow-up examination documented in this encounter [facility] note* Diagnosis Permanent atrial fibrillation (HCC)- Primary [...] unspecified depression type documented in this encounter [facility] note* Diagnosis Permanent atrial fibrillation (HCC)- Primary [...] unspecified depression type [facility]* Diagnosis Permanent atrial fibrillation (HCC)- [...] protein electrophoresis- Primary documented in this encounter [facility]* Diagnosis Permanent atrial fibrillation (HCC)- [...] protein electrophoresis- Primary documented in this [facility]* Diagnosis Permanent atrial fibrillation (HCC)- [...] anemia type- Primary [facility]* Diagnosis Permanent atrial fibrillation [...] Other follow-up examination documented [facility]* Diagnosis Permanent atrial fibrillation (HCC)- Primary [...] Other follow-up examination documented [facility] this [facility]* Diagnosis Permanent atrial fibrillation (HCC)- [...] Unspecified essential hypertension documented in this encounter [facility] note* Diagnosis Permanent atrial fibrillation (HCC)- Primary [...] deficiency anemia type documented [facility] this [facility]* Diagnosis Skin erythema- Primary Unspecified erythematous condition Right elbow pain Pain in joint, upper arm [facility]* Diagnosis Permanent atrial fibrillation (HCC)- Primary [...] (HCC) Unspecified thrombocytopenia documented [facility] this [facility]* Diagnosis Permanent atrial fibrillation (HCC)- [...] unspecified depression type documented [facility]* Diagnosis Permanent atrial fibrillation [...] deficiency anemia type documented in this encounter [facility]* Diagnosis Permanent atrial fibrillation (HCC)- [...] unspecified depression type documented in this encounter [facility] note* Diagnosis Permanent atrial fibrillation (HCC)- Primary [...] neoplasm of breast documented in this encounter [facility] note* Diagnosis Permanent atrial fibrillation (HCC)- Primary [...] protein, unspecified- Primary documented in this encounter [facility] note* Diagnosis Permanent atrial fibrillation (HCC)- Primary [...] neoplasm of breast documented in this encounter [facility] note* Diagnosis Permanent atrial fibrillation (HCC)- Primary [...] of adrenal glands documented in this encounter [facility] note* Diagnosis Permanent atrial fibrillation (HCC)- Primary [...] of adrenal glands documented in this encounter [facility] note* Diagnosis Permanent atrial fibrillation (HCC)- Primary [...] of adrenal glands documented [facility] this [facility]* Diagnosis Permanent atrial fibrillation (HCC)- [...] glands [facility]* Diagnosis Permanent atrial fibrillation [...] disease of pericardium documented in this [facility]* Diagnosis Permanent atrial fibrillation (HCC)- Primary [...] (HCC) Unspecified thrombocytopenia documented in this [facility]* Diagnosis Permanent atrial fibrillation (HCC)- [...] Pulmonary HTN (HCC) documented [facility]* Diagnosis Permanent atrial fibrillation (HCC)- Primary [...] disease of pericardium documented in this [facility]* Diagnosis Permanent atrial fibrillation (HCC)- [...] disease of pericardium documented [facility]* Diagnosis Permanent atrial fibrillation (HCC)- Primary [...] 41-49%) (HCC)- Primary documented in this encounter [facility] note* Diagnosis Permanent atrial fibrillation (HCC)- Primary [...] Anemia, unspecified type documented in this encounter [facility] note* Diagnosis Permanent atrial fibrillation (HCC)- Primary [...] CHRISTIANNE on CPAP documented in this encounter [facility] note* Diagnosis Permanent atrial fibrillation (HCC)- Primary [...] Heart failure with improved ejection fraction (HFimpEF) ([facility]) Nonrheumatic aortic valve insufficiency Nonrheumatic mitral valve regurgitation CHRISTIANNE on CPAP Hospital discharge follow-up Other follow-up examination Chronic heart failure with mildly reduced ejection fraction (HFmrEF, 41-49%) ([facility]) documented in this encounter [facility] note* Diagnosis Permanent atrial fibrillation (HCC)- Primary [...] achieved remission (HCC) documented in this encounter [facility] note* Diagnosis Permanent atrial fibrillation (HCC)- Primary [...] achieved remission (HCC) documented in this encounter [facility] (n[facility]ative[facility] Consultation (Routine) - Pending Review Specialty Diagnoses / Procedures Referred By Kat valencia Referred To Contact Plastic Surgery Diagnoses Eyelid lesion, benign Procedures PA OFFICE/OUTPATIENT NEW HIGH [facility] 60 MINUTES Kory Ibarra, [address] [place] [address] [facility] [employer] [address] [place] [address] [place] [address] Referral ID Status Reason Start Date Expiration Date Visits Requested Visits Authorized [id number] Pending Review Specialty Services Required 03/25/2023 03/24/2024 1 1 [facility] Consultation (Routine) - Pending Review Specialty Diagnoses / Procedures Referred By Contac t Referred To Contact Obstetrics and Gynecology Diagnoses Postmenopausal vaginal bleeding Procedures PA OFFICE/OUTPATIENT NEW HIGH [facility] 60 MINUTES Kory Ibarra DO [address] [place] [address] [facility] [employer] [address] [place] [address] Referral ID Status Reason Start Date Expiration Date Visits Requested Visits Authorized [id number] Pending Review Specialty Services Required 12/21/2023 12/20/2024 1 1 [facility] Medications - Pending Review Specialty Diagnoses / Procedures Referred By Contac t Referred To Contact Kory Ibarra DO [address] [place] [address] Phone: tel: fax: Referral ID Status Reason Start Date Expiration Date V isits Requested Visits Authorized [id number] Pending Review 04/03/2024 09/30/2024 1 1 [facility] (narrative)No reason for referral information availableWWilson Health Work Phone: Reason for visit Narrative* Imaging (Emergency) - Closed Specialty Diagnoses / Procedures Referred By Contac t Referred To Contact Radiology Diagnoses Acute midline low back pain without sciatica Bandemia Procedures CT lumbar spine wo IV contrast Curt Last PA-C [address] [place] [address] Phone: tel: fax: Referral ID Status Reason Start Date Expiration Date Visits Re quested Visits Authorized [id number] Closed 02/14/2024 02/13/2025 1 1 [facility] for visit Narrative* Diagnostic Procedure Only (Urgent) - Closed Specialty Diagnoses / Procedures Referred By Contac t Referred To Contact XR IMAGING Diagnoses Right elbow pain Procedures XR ELBOW GENERAL 2V AP/LAT RIGHT RADEX ELBOW 2 VIEWS Miranda Marion, MARIUSZ.FINAL ASSEMBLY INSPECTOR [address] [place] [address] Phone: tel: fax: [place] [address] Referral ID Status Reason Start Date Expiration Date V isits Requested Visits Authorized [id number] Closed Auto-Generate d Referral 08/09/2024 09/08/2025 1 1 [facility] for visit Narrative* Imaging (Routine) - Closed Specialty Diagnoses / Procedures Referred By Contac t Referred To Contact Radiology Diagnoses Leukocytosis, unspecified type Anemia, unspecified type Adrenal mass, left (HCC) Procedures CT chest abdomen pelvis with contrast Marion Mccann DO [address] [place] [address] Phone: tel: fax: Referral ID Status Reason Start Date Expiration Date Visits Re quested Visits Authorized [id number] Closed 11/09/2024 11/09/2025 1 1 [facility] for visit Narrative* Imaging (Routine) - Closed Specialty Diagnoses / Procedures Referred By Contac t Referred To Contact Cardiology Diagnoses Pulmonary HTN (HCC) Procedures Transthoracic echocardiogram (TTE) complete with contrast, bubble, strain, and 3D PRN PA ECHO TTHRC R-T 2D W/WOM-MODE COMPL SPEC&COLR D PA TTE W OR WO FABRICE GUSTAFSON,Benita Triplett MD [address] [facility] [address] [place] [address] Phone: tel: fax: Referral ID Status Reason Start Date Expiration Date Visits Re quested Visits Authorized [id number] Closed 07/31/2024 07/31/2025 1 1 [facility] for visit Narrative* Imaging (Routine) - Closed Specialty Diagnoses / Procedures Referred By Contac t Referred To Contact Radiology Diagnoses Thrombocytopenia Leukocytosis, unspecified type Anemia, unspecified type Procedures CT guided biopsy bone marrow Marion Mccann DO [address] [facility] [address] [place] [address] Phone: tel: fax: Referral ID Status Reason Start Date Expiration Date Visits Re quested Visits Authorized [id number] Closed 11/24/2024 11/24/2025 1 1 [facility] [...] Documents on File Type Date Recorded Patient Health Care Recruiter Expl anation Advance Directives and Living Will Power of Tabulating Machine Mechanic Latest Code Status on File Code Status Date Activated Date Inactivated Comments Full Code 06/08/2017 12:50 AM 06/10/2017 7:14 PM Full Code 04/06/2017 7:21 AM 04/06/2017 12:40 PM Documents on File Type Date Recorded Patient Health Care Recruiter Expl anation ACP-Advance Directive ACP-Power of Tabulating Machine Mechanic Documents on File Type Date Recorded Patient Health Care Recruiter Expl anation ACP-Advance Directive ACP-Power of Tabulating Machine Mechanic Latest Code Status on File Code Status Date Activated Date Inactivated Comments Full Code 06/08/2017 12:50 AM 06/10/2017 7:14 PM Full Code 04/06/2017 7:21 AM 04/06/2017 12:40 PM Advance Directive Response Recorded Date/ Time Advance Directives No October 27, 2013 5:19pm Living Will No January 18 9:29pm Power of Tabulating Machine Mechanic No January 18, 2022 9:29pm Advance Directive Response Recorded Date/ Time Name of Medical Power of Tabulating Machine Mechanic [email or web address] January 19, 2022 12:21am Advance Directives No October 27, 2013 5:19pm Living Will Yes January 19 12:21am Power of Tabulating Machine Mechanic Yes January 19, 2022 12:21am Date Activated [...] Do you have a Healthcare Power of Tabulating Machine Mechanic? No June 02, 2024 11:47am Advance Directives No October 27, 2013 6:19pm Advance Directive Response Recorded Date/ Time Living Will No June 02, 2024 3:35pm Do you have a Healthcare Power of Tabulating Machine Mechanic? No June 02, 2024 3:35pm Advance Directives No October 27, 2013 6:19pm Advance Directive Response Recorded Date/ Time Living Will No June 02, 2024 3:35pm Do you have a Healthcare Power of Tabulating Machine Mechanic? No June 02, 2024 3:35pm Do you have a Healthcare Power of Tabulating Machine Mechanic? No August 24, 2024 6:39pm Advance Directives No October 27, 2013 6:19pm Advance Directive Response Recorded Date/ Time Living Will No June 02, 2024 3:35pm Do you have a Healthcare Power of Tabulating Machine Mechanic? No June 02, 2024 3:35pm Do you have a Healthcare Power of Tabulating Machine Mechanic? No August 25, 2024 12:42am Advance Directives [...] RIGHT BREAST BIOPSY Laura Yang, MARIUSZ - FINAL ASSEMBLY INSPECTOR [address] [facility] [address] [place] [address] Referral ID Status Reason Start Date Expiration Date Visits Re quested Visits Authorized [id number] Open 07/30/2021 07/30/2022 1 1 Specialty Diagnoses / Procedures Referred By Cathleenac t Referred To Contact Cardiology Diagnoses Chronic atrial fibrillation (HCC) Nonrheumatic mitral valve regurgitation Procedures Echo 2D Doppler Color Benita Moon MD [address] [facility] [address] [place] [address] Referral ID Status Reason Start Date Expiration Date Visits Re quested Visits Authorized [id number] Closed 09/17/2021 10/17/2021 1 1 Specialty Diagnoses / Procedures Referred By Cathleenac t Referred To Contact Diagnoses CHRISTIANNE on CPAP Cough variant asthma Kory Ibarra, DO [address] [place] [address] Referral ID Status Reason Start Date Expiration Date Visits Re quested Visits Authorized [id number] Closed 1 1 Specialty Diagnoses / Procedures Referred By Kat t Referred To Contact Diagnoses CHRISTIANNE on CPAP Cough variant asthma Kory Ibarra, DO [address] [facility] [address] [place] [address] Referral ID Status Reason Start Date Expiration Date V isits Requested Visits Authorized [id number] Pending Review 12/21/2023 06/18/2024 1 1 Chief [...] section and content) DATE CREATED AUTHOR 09/02/2017 [facility] DATE CREATED AUTHOR AUTHOR'S ORGANIZ ATION 10/15/2021 [facility] DATE CREATED AUTHOR AUTHOR'S ORGANIZ ATION 12/13/2021 [facility] DATE CREATED AUTHOR AUTHOR'S ORGANIZ ATION 08/12/2024 [facility] DATE CREATED AUTHOR AUTHOR'S ORGANIZ ATION 09/07/2024 [facility] DATE CREATED AUTHOR AUTHOR'S ORGANIZ ATION 01/05/2025 [facility] Care Teams (unrecognized sec tion and content) Group Insurance Specialist Relationship Specialty Start Date End Date Fred Kory Stratton, DO [address] [facility] [place] [address] PCP - General 09/13/14 Group Insurance Specialist Relationship Specialty Start Date End Date Barbrarajwinder Kory Stratton, DO [address] [facility] [place] [place] [address] PCP - General 09/13/14 Group Insurance Specialist Relationship Specialty Start Date End Date Tonybessy Kory Stratton, DO [address] [place] [address] PCP - General 09/13/14 Group Insurance Specialist Relationship Specialty Start Date End Date Barbrarajwinder Kory Stratton, DO [address] [place] [address] PCP - General 09/13/14 Group Insurance Specialist Relationship Specialty Start Date End Date Tonybessy Kory Stratton, DO [address] [place] [address] PCP - General 09/13/14 Group Insurance Specialist Relationship Specialty Start Date End Date Barbrarajwinder Kory Stratton, DO [address] [place] [address] PCP - General 08/13/18 Group Insurance Specialist Relationship Specialty Start Date End Date Fred Kory Stratton, DO [address] [place] [address] PCP - General 08/13/18 Group Insurance Specialist Relationship Specialty Start Date End Date Kory Ibarra Chayito, DO [address] [facility] [place] [address] PCP - General 08/13/18 Group Insurance Specialist Relationship Specialty Start Date End Date Kory Ibarra Chayito, DO [address] [place] [address] PCP - General 08/13/18 Group Insurance Specialist Relationship Specialty Start Date End Date Kory Ibarra, DO [address] [place] [address] PCP - General 08/13/18 Group Insurance Specialist Relationship Specialty Start Date End Date Kory Ibarra, DO [address] [place] [address] PCP - General 08/13/18 Group Insurance Specialist Relationship Specialty Start Date End Date Kory Ibarra, [address] [place] [address] PCP - General 08/13/18 Group Insurance Specialist Relationship Specialty Start Date End Date Kory Ibarra, DO [address] [place] [address] PCP - General 08/13/18 Group Insurance Specialist Relationship Specialty Start Date End Date Kory Ibarra [address] [place] [address] PCP - General Family Medicine 12/29/22 Group Insurance Specialist Relationship Specialty Start Date End Date Kory Ibarra, DO [address] [place] [address] PCP - General 08/13/18 Group Insurance Specialist Relationship Specialty Start Date End Date Kory Ibarra, DO [address] [place] [address] PCP - General 08/13/18 Group Insurance Specialist Relationship Specialty Start Date End Date Kory Ibarra, DO [address] [place] [address] PCP - General 08/13/18 Group Insurance Specialist Relationship Specialty Start Date End Date Kory Ibarra, DO [address] [place] [address] PCP - General 08/13/18 Group Insurance Specialist Relationship Specialty Start Date End Date Kory Ibarra, DO [address] [place] [address] PCP - General 08/13/18 Group Insurance Specialist Relationship Specialty Start Date End Date Kory Ibarra, DO [address] [place] [address] PCP - General 08/13/18 Group Insurance Specialist Relationship Specialty Start Date End Date Kory Ibarra, DO [address] [place] [address] PCP - General 08/13/18 Group Insurance Specialist Relationship Specialty Start Date End Date Kory Ibarra, DO [address] [place] [address] PCP - General 08/13/18 Group Insurance Specialist Relationship Specialty Start Date End Date Kory Ibarra, DO [address] [place] [address] PCP - General 08/13/18 Group Insurance Specialist Relationship Specialty Start Date End Date Kory Ibarra, DO [address] [place] [address] PCP - General 08/13/18 Group Insurance Specialist Relationship Specialty Start Date End Date Fred Kory Stratton, DO [address] [place] [address] PCP - General 08/13/18 Group Insurance Specialist Relationship Specialty Start Date End Date Fred Kory Stratton, DO [address] [place] [id number] PCP - General Family Medicine 12/29/22 Group Insurance Specialist Relationship Specialty Start Date End Date Fred Kory Stratton, DO [address] [place] [address] PCP - General 08/13/18 Group Insurance Specialist Relationship Specialty Start Date End Date Kory Ibarra Chayito, DO [address] [place] [address] PCP - General 08/13/18 Group Insurance Specialist Relationship Specialty Start Date End Date Fred Kory Stratton, DO [address] [place] [address] PCP - General 08/13/18 Group Insurance Specialist Relationship Specialty Start Date End Date Kory Ibarra Chayito, DO [address] [place] [address] PCP - General 08/13/18 Group Insurance Specialist Relationship Specialty Start Date End Date Kory Ibarra Chayito, DO [address] [place] [address] PCP - General 08/13/18 Group Insurance Specialist Relationship Specialty Start Date End Date Kory Ibarra, DO [address] [place] [address] PCP - General 08/13/18 Group Insurance Specialist Relationship Specialty Start Date End Date Kory Ibarra Chayito, DO [address] [place] [address] PCP - General 08/13/18 Group Insurance Specialist Relationship Specialty Start Date End Date Kory Ibarra, DO [address] [place] [address] PCP - General 08/13/18 Group Insurance Specialist Relationship Specialty Start Date End Date Kory Ibarra, DO [address] [place] [id number] PCP - General Family Medicine 12/29/22 Group Insurance Specialist Relationship Specialty Start Date End Date Kory Ibarra, DO [address] [place] [address] PCP - General 08/13/18 Group Insurance Specialist Relationship Specialty Start Date End Date Kory Ibarra Chayito, DO [address] [place] [address] PCP - General 08/13/18 Group Insurance Specialist Relationship Specialty Start Date End Date Kory Ibarra, DO [address] [place] [address] PCP - General 08/13/18 Group Insurance Specialist Relationship Specialty Start Date End Date Kory Ibarra, DO [address] [place] [address] PCP - General 08/13/18 Group Insurance Specialist Relationship Specialty Start Date End Date Kory Ibarra DO [address] [place] [address] PCP - General 08/13/18 Group Insurance Specialist Relationship Specialty Start Date End Date Kory Ibarra, DO [address] [place] [address] PCP - General 08/13/18 Group Insurance Specialist Relationship Specialty Start Date End Date Kory Ibarra, DO [address] [place] [address] PCP - General 08/13/18 Group Insurance Specialist Relationship Specialty Start Date End Date Kory Ibarra, DO [address] [place] [address] PCP - General 08/13/18 Jamie Jimenez MD [address] [place] [address] Surgeon Urology 02/15/24 Group Insurance Specialist Relationship Specialty Start Date End Date Kory Ibarra, DO [address] [place] [address] PCP - General 08/13/18 Jamie Jimenez MD [address] [place], [place] [address] Surgeon Urology 02/15/24 Group Insurance Specialist Relationship Specialty Start Date End Date Kory Ibarra DO [address] [place] [address] PCP - General 08/13/18 Jamie Jimenez MD [address] [address] Surgeon Urology 02/15/24 Group Insurance Specialist Relationship Specialty Start Date End Date Kory Ibarra, [address] [place] [phone] PCP - General 08/13/18 Group Insurance Specialist Relationship Specialty Start Date End Date Kory Ibarra, DO [address] [place], [place] [phone] PCP - General 08/13/18 Group Insurance Specialist Relationship Specialty Start Date End Date Kory Ibarra DO [address] [facility] [address] [place] [address] PCP - General 08/13/18 Jamie Jimenez MD [address] [place] [address] Surgeon Urology 02/15/24 Group Insurance Specialist Relationship Specialty Start Date End Date Kory Ibarra DO [address] [facility] [address] [place] [address] PCP - General 08/13/18 Jamie Jimenez MD [address] [place] [address] Surgeon Urology 02/15/24 Group Insurance Specialist Relationship Specialty Start Date End Date Kory Ibarra DO [address] [place] [address] PCP - General 08/13/18 Jamie Jimenez MD [address] [address] Surgeon Urology 02/15/24 Group Insurance Specialist Relationship Specialty Start Date End Date Kory Ibarra DO [address] [place] [address] PCP - General 08/13/18 Jamie Jimenez MD [address] [address] Surgeon Urology 02/15/24 Group Insurance Specialist Relationship Specialty Start Date End Date Kory Ibarra DO [address] [facility] [address] [place] [address] PCP - General 08/13/18 Jamie Jimenez MD [address] [address] Surgeon Urology 02/15/24 Group Insurance Specialist Relationship Specialty Start Date End Date Kory Ibarra DO [address] [facility] [address] [place] [address] PCP - General 08/13/18 Jamie Jimenez MD [address] [address] Surgeon Urology 02/15/24 Group Insurance Specialist Relationship Specialty Start Date End Date Kory Ibarra DO [address] [place] [address] PCP - General 08/13/18 Jamie Jimenez MD 201 [facility] 3 [place] [address] Surgeon Urology 02/15/24 Group Insurance Specialist Relationship Specialty Start Date End Date Kory Ibarra DO [address] [place] [address] PCP - General 08/13/18 Jamie Jimenez MD [address] [phone] Surgeon Urology 02/15/24 Group Insurance Specialist Relationship Specialty Start Date End Date Kory Ibarra DO [address] [facility] [address] [place] [address] PCP - General 08/13/18 Jamie Jimenez MD [address] [address] Surgeon Urology 02/15/24 Group Insurance Specialist Relationship Specialty Start Date End Date Kory Ibarra DO [address] [facility] [address] [place] [address] PCP - General 08/13/18 Jamie Jimenez MD [address] [address] Surgeon Urology 02/15/24 Group Insurance Specialist Relationship Specialty Start Date End Date Kory Ibarra DO [address] [facility] [address] [place] [address] PCP - General 08/13/18 Jamie Jimenez MD 201 [facility] [address] [place] [address] Surgeon Urology 02/15/24 Team Status: Active Member [...] Provider Active Sta rt: June 05, 2024 Group Insurance Specialist Relationship Specialty Start Date End Date Kory Ibarra DO [address] [facility] [address] [place] [address] PCP - General 08/13/18 Jamie Jimenez MD [address] [address] Surgeon Urology 02/15/24 Group Insurance Specialist Relationship Specialty Start Date End Date Kory Ibarra DO [address] [facility] [address] [place] [address] PCP - General 08/13/18 Jamie Jimenez MD [address] [address] Surgeon Urology 02/15/24 Group Insurance Specialist Relationship Specialty Start Date End Date Kory Ibarra DO [address] [facility] [address] [place] [address] PCP - General 08/13/18 Jamie Jimenez MD [address] [address] Surgeon Urology 02/15/24 Group Insurance Specialist Relationship Specialty Start Date End Date Kory Ibarra DO [address] [facility] [address] [place] [address] PCP - General 08/13/18 Jamie Jimenez MD [address] [address] Surgeon Urology 02/15/24 Group Insurance Specialist Relationship Specialty Start Date End Date Kory Ibarra DO [address] [facility] [address] [place] [address] PCP - General 08/13/18 Jamie Jimenez MD [address] [phone] Surgeon Urology 02/15/24 Group Insurance Specialist Relationship Specialty Start Date End Date Kory Ibarra DO [address] [facility] [address] [place] [address] PCP - General 08/13/18 Jamie Jimenez MD [address] [phone] Surgeon Urology 02/15/24 Group Insurance Specialist Relationship Specialty Start Date End Date Kory Ibarra DO [address] [facility] [address] [place] [address] PCP - General 08/13/18 Jamie Jimenez MD [address] [phone] Surgeon Urology 02/15/24 Group Insurance Specialist Relationship Specialty Start Date End Date Kory Ibarra DO [address] [facility] [address] [place] [address] PCP - General 08/13/18 Jamie Jimenez MD [address] [address] Surgeon Urology 02/15/24 Sindy Warren, BELLA Registered Nurse Opera Singer Manager 05/10/24 05/19/24 Group Insurance Specialist Relationship Specialty Start Date End Date Kory Ibarra DO [address] [facility] [address] [place] [address] PCP - General 08/13/18 Jamie Jimenez MD 201 [facility] 3 [place] [address] Surgeon Urology 02/15/24 Sindy Warren, RN Registered Nurse Opera Singer Manager 05/10/24 05/19/24 Group Insurance Specialist Relationship Specialty Start Date End Date Kory Ibarra DO [address] [facility] [address] [place] [address] PCP - General 08/13/18 Jamie Jimenez MD [address] [address] Surgeon Urology 02/15/24 Group Insurance Specialist Relationship Specialty Start Date End Date Kory Ibarra DO [address] [facility] [address] [place] [address] PCP - General 08/13/18 Jamie Jimenez MD [address] [address] Surgeon Urology 02/15/24 Group Insurance Specialist Relationship Specialty Start Date End Date Kory Ibarra DO [address] [place] [address] PCP - General Family Medicine 12/29/22 Group Insurance Specialist Relationship Specialty Start Date End Date Kory Ibarra DO [address] [place] [address] PCP - General Family Medicine 12/29/22 Group Insurance Specialist Relationship Specialty Start Date End Date Kory Ibarra DO [address] [place] [address] PCP - General 08/13/18 Jamie Jimenez MD [address] [facility] [address] [place] [address] Surgeon Urology 02/15/24 Group Insurance Specialist Relationship Specialty Start Date End Date Kory Ibarra DO [address] [facility] [address] [place] [address] PCP - General 08/13/18 Jamie Jimenez MD 201 [facility] [address] [place] [address] Surgeon Urology 02/15/24 Team Status: Active Member [...] Provider Active S tart: August 24, 2024 Group Insurance Specialist Relationship Specialty Start Date End Date Kory Ibarra DO [address] [facility] [address] [place] [address] PCP - General 08/13/18 Jamie Jimenez MD [address] [phone] Surgeon Urology 02/15/24 Group Insurance Specialist Relationship Specialty Start Date End Date Kory Ibarra DO [address] [place] [address] [address] [place] [address] PCP - General 08/13/18 Jamie Jimenez MD [address] [address] Surgeon Urology 02/15/24 Group Insurance Specialist Relationship Specialty Start Date End Date Kory Ibarra DO [address] [facility] [address] [place] [address] PCP - General 08/13/18 Jamie Jimenez MD 201 [facility] 3 [place] [address] Surgeon Urology 02/15/24 Team Status: Inactive Member [...] Provider Active Star t: August 28, 2024 Group Insurance Specialist Relationship Specialty Start Date End Date Fred Kory StrattonDO [address] [place] [address] PCP - General 08/13/18 Jamie Jimenez MD [address] [place], [place] [address] Surgeon Urology 02/15/24 Group Insurance Specialist Relationship Specialty Start Date End Date Kory Ibarra DO [address] [place] [address] PCP - General 08/13/18 Jamie Jimenez MD [address] [place], [place] [phone] Surgeon Urology 02/15/24 Group Insurance Specialist Relationship Specialty Start Date End Date Kory Ibarra DO [address] [place] [address] PCP - General 08/13/18 Jamie Jimenez MD [address] [place], [place] [address] Surgeon Urology 02/15/24 Group Insurance Specialist Relationship Specialty Start Date End Date Kory Ibarra DO [address] [place] [address] PCP - General 08/13/18 Jamie Jimenez MD [address] [place] [address] Surgeon Urology 02/15/24 Group Insurance Specialist Relationship Specialty Start Date End Date Kory Ibarra DO [address] [place] [address] PCP - General 08/13/18 Jamie Jimenez MD [address] [place] [address] Surgeon Urology 02/15/24 Marion Mccann DO [address] [place] [address] [place] [address] Consulting Physician Hematology and Oncology 11/06/24 Group Insurance Specialist Relationship Specialty Start Date End Date Kory Ibarra DO [address] [place] [address] PCP - General 08/13/18 Jamie Jimenez MD [address] [place] [address] Surgeon Urology 02/15/24 Marion Mccann DO [address] [place] [address] [place] [address] Consulting Physician Hematology and Oncology 11/06/24 Group Insurance Specialist Relationship Specialty Start Date End Date Kory Ibarra DO [address] [place] [address] PCP - General 08/13/18 Jamie Jimenez MD [address] [place] [address] Surgeon Urology 02/15/24 Marion Mccann DO [address] [place] [address] [place] [address] Consulting Physician Hematology and Oncology 11/06/24 Group Insurance Specialist Relationship Specialty Start Date End Date Kory Ibarra DO [address] [place] [address] PCP - General 08/13/18 Jamie Jimenez MD [address] [address] Surgeon Urology 02/15/24 Marion Mccann DO [address] [place] [address] [place] [address] Consulting Physician Hematology and Oncology 11/06/24 Group Insurance Specialist Relationship Specialty Start Date End Date Kory Ibarra DO [address] [place] [phone] PCP - General 08/13/18 Jamie Jimenez MD [address] [address] Surgeon Urology 02/15/24 Marion Mccann DO [address] [place] [address] [place] [address] Consulting Physician Hematology and Oncology 11/06/24 Group Insurance Specialist Relationship Specialty Start Date End Date Kory Ibarra DO [address] [place] [address] PCP - General 08/13/18 Jamie Jimenez MD [address] [place] [address] Surgeon Urology 02/15/24 Marion Mccann DO [address] [place] [address] [place], [place] [address] Consulting Physician Hematology and Oncology 11/06/24 Group Insurance Specialist Relationship Specialty Start Date End Date Kory Ibarra DO [address] [place] [address] PCP - General 08/13/18 Jamie Jimenez MD [address] [facility] [address] [place] [address] Surgeon Urology 02/15/24 Marion Mccann DO [address] [place] [address] Consulting Physician Hematology and Oncology 11/06/24 Group Insurance Specialist Relationship Specialty Start Date End Date Kory Ibarra DO [address] [place] [phone] PCP - General 08/13/18 Jamie Jimenez MD [address] [place] [address] Surgeon Urology 02/15/24 Marion Mccann DO [address] [place] [address] Consulting Physician Hematology and Oncology 11/06/24 Group Insurance Specialist Relationship Specialty Start Date End Date Kory Ibarra DO [address] [place] [phone] PCP - General 08/13/18 Jamie Jimenez MD [address] [place] [address] Surgeon Urology 02/15/24 Marion Mccann DO [address] [place] [address] Consulting Physician Hematology and Oncology 11/06/24 Group Insurance Specialist Relationship Specialty Start Date End Date Kory Ibarra DO [address] [place] [phone] PCP - General 08/13/18 Jamie Jimenez MD [address] [place] [address] Surgeon Urology 02/15/24 Marion Mccann DO [address] [place] [address] Consulting Physician Hematology and Oncology 11/06/24 Group Insurance Specialist Relationship Specialty Start Date End Date Kory Ibarra DO [address] [place] [phone] PCP - General 08/13/18 Jamie Jimenez MD [address] [place] [address] Surgeon Urology 02/15/24 Marion Mccann DO [address] [place] [address] Consulting Physician Hematology and Oncology 11/06/24 Group Insurance Specialist Relationship Specialty Start Date End Date Kory Ibarra DO [address] [place] [phone] PCP - General 08/13/18 Jamie Jimenez MD [address] [facility] [address] [place] [address] Surgeon Urology 02/15/24 Marion Mccann DO [address] [place] [address] Consulting Physician Hematology and Oncology 11/06/24 Group Insurance Specialist Relationship Specialty Start Date End Date Kory Ibarra DO [address] [place] [phone] PCP - General 08/13/18 Jamie Jimenez MD 201 [facility] [address] [place] [address] Surgeon Urology 02/15/24 Maroin Mccann DO [address] [place] [address] Consulting Physician Hematology and Oncology 11/06/24 Group Insurance Specialist Relationship Specialty Start Date End Date Kory Ibarra DO [address] [place] [phone] PCP - General 08/13/18 Jamie Jimenez MD [address] [address] Surgeon Urology 02/15/24 Marion Mccann DO [address] [place] [address] Consulting Physician Hematology and Oncology 11/06/24 Group Insurance Specialist Relationship Specialty Start Date End Date Kory Ibarra DO [address] [place] [phone] PCP - General 08/13/18 Jamie Jimenez MD [address] [address] Surgeon Urology 02/15/24 Marion Mccann DO [address] [place] [address] Consulting Physician Hematology and Oncology 11/06/24 Group Insurance Specialist Relationship Specialty Start Date End Date Kory Ibarra DO [address] [place] [address] PCP - General 08/13/18 Jamie Jimenez MD [address] [address] Surgeon Urology 02/15/24 Marion Mccann DO [address] [place] [address] Consulting Physician Hematology and Oncology 11/06/24 Group Insurance Specialist Relationship Specialty Start Date End Date Kory Ibarra DO [address] [place] [phone] PCP - General 08/13/18 Jamie Jimenez MD 201 [facility] [address] [place] [address] Surgeon Urology 02/15/24 Marion Mccann DO [address] [place], [place] [phone] Consulting Physician Hematology and Oncology 11/06/24 Group Insurance Specialist Relationship Specialty Start Date End Date Kory Ibarra DO [address] [place] [phone] PCP - General 08/13/18 Jamie Jimenez MD [address] [address] Surgeon Urology 02/15/24 Marion Mccann DO [address] [place] [address] Consulting Physician Hematology and Oncology 11/06/24 Group Insurance Specialist Relationship Specialty Start Date End Date Kory Ibarra DO [address] [place] [phone] PCP - General 08/13/18 Jamie Jimenez MD [address] [facility] [address] [place] [address] Surgeon Urology 02/15/24 Marion Mccann DO [address] [place] [address] Consulting Physician Hematology and Oncology 11/06/24 Group Insurance Specialist Relationship Specialty Start Date End Date Fred Kory Stratton, DO [address] [place] [address] PCP - General 08/13/18 Jamie Jimenez MD [address] [place], [place] [phone] Surgeon Urology 02/15/24 Marion Mccann DO [address] [place], [place] [phone] Consulting Physician Hematology and Oncology 11/06/24 Group Insurance Specialist Relationship Specialty Start Date End Date Kory Ibarra Chayito DO [address] [place] [address] PCP - General 08/13/18 Jamie Jimenez MD [address] [place] [address] Surgeon Urology 02/15/24 Marion Mccann DO [address] [place] [address] Consulting Physician Hematology and Oncology 11/06/24 Goals [...] Vaccine Reason Onset Date Comments Referral 12/21/2023 [facility] Reason Comments 6 Month Follow-up Atrial Fibrillation Congestive Heart Failure Reason Onset Date Comments Back Pain 01/31/2024 Reason Comments Low Back Pain R low back pain x1 w nondalton Reason Comments Back Pain For approx 1 [...] without sciatica Procedures .. Ana Meléndez MD [address] [place] [address] Phone: tel: fax: [facility] Cardiac Progressive Care Unit [address]U [address] [place] [address] Phone: tel: Referral ID Status Reason Start Date Expiration Date Visits Re quested Visits Authorized [id number] 1 Reason Comments Follow-up Check up Reason Onset Date Comments Appointment 03/13/2024 03/13/24 Pt Priya craft calling to ask the office /Provider if her Mother could have a SOONER appt than 06.21.24 with Provider since being out of the Hospital she is asking for a call back to discuss Reason Comments Hospital Follow-up 02/14/24 seen at [facility] for Back pain and high white [...] Generalized weakness Procedures . Yanelis Higgins MD [address] [place] [address] Phone: tel: fax: [facility] EMERGENC[facility]PT [address] [place] [phone] Phone: tel: Referral ID Status Reason Start Date Expiration Date Visits Re quested Visits Authorized [id number] 1 Reason Comments Hospital Follow-up Atrial [...] or prosecute any alcohol or drug abuse patient.[facility] the event this information is protected by the Federal Confidentiality of Alcohol and Drug Abuse Patient Records regulations: The Federal rules restrict any use of the information to criminally investigate or prosecute any alcohol or drug abuse patient.[facility] Hospital[facility] the event this information is protected by the Federal Confidentiality of Alcohol and Drug Abuse Patient Records regulations: The Federal rules restrict any use of the information to criminally investigate or prosecute any alcohol or drug abuse patient.[facility] the event this information is protected by the Federal Confidentiality of Alcohol and Drug Abuse Patient Records regulations: The Federal rules restrict any use of the information to criminally investigate or prosecute any alcohol or drug abuse patient.[facility] Hospital[facility] the event this information is protected by the Federal Confidentiality of Alcohol and Drug Abuse Patient Records regulations: The Federal rules restrict any use of the information to criminally investigate or prosecute any alcohol or drug abuse patient.[facility] Scheduled Active and Recently Administ ered [...] Scheduled Medication Order 02/09/2024 02/10/2024 02/11/2024 HYDROcodone-acetaminophen (Ulen) 5-325 MG per tablet 1 tablet (COMPLETED) [...] Comment: back pain)0842 (Given - Provider: Diamond Wesis RN)1726 (Given - Provider: Ashely Burgess RN) 0038 (Given - Provider: Allie Dubois RN)0831 (Given - Provider: Ashely Burgess RN)1619 (Given - Provider: Ashely Burgess RN) apixaban (Eliquis) tablet 5 mg 5 mg, Oral, 2 times daily, First dose on Wed02/15/24 at 1030, Anticoagulant 0822 (Given - Provider: Diaomnd Weiss RN)2037 (Given - Provider: Cristina Persaud RN) 0842 (Given - Provider: Diamond Weiss RN)2002 (Given - Provider: Allie Dubois RN) 0831 (Given - Provider: Ashely Burgess RN) atorvastatin (Lipitor) tablet 10 mg 10 mg, Oral, Nightly, First dose on Wed02/15/24 at 2100 2037 (Given - Provider: Cristina Persaud RN) 2002 (Given - Provider: Allie Dubosi RN) cephalexin (Keflex) capsule 1,000 mg 1,000 [...] 160, Starting on Wed02/16/24 at 0404 HYDROcodone-acetaminophen (Ulen) 5-325 MG per tablet 1 tablet 1 [...] pupils, RR < 8; notify primary team satellite communications operator if used ondansetron (Zofran) injection 4 mg(Linked [...] BE BASED ON THE PRIMARY CLINICAL RECORDS. [facility]. provides no warranty or guarantee of the accuracy or completeness of information in this document.
[2025-02-13] VITALS (28 sets, daily range): BP systolic 82–147; BP diastolic 40–120; PULSE 93–166; RESP 18–28; TEMP 36.6–36.9; O2SAT 92–100; BMI 43.2
[2025-02-13] MEDS: 0.9% Saline Lock 10 ML Syringe IV ×3 (00:35→17:56)
[2025-02-13] MEDS: Diltiazem 125 MG in Dextrose 5%-Water (100mL Bag) 100 ML IV (00:36)
[2025-02-13 00:56] LABS: Troponin T High Sens 4 HR 16 ng/L (<=14)
[2025-02-13] MEDS: APIXABAN 5 MG TABLET PO (01:02)
[2025-02-13 04:47] LABS: Hematocrit 28.9 % (37-47); Hemoglobin 9.1 g/dL (12.0-15.0); Immature Granulocytes Count 0.080 X10^3/uL (0.0-0.0); Mean Corp Hgb Conc 31.5 g/dL (32-36); Mean Corpuscular Volume 91.2 fL (81-99); Mean Platelet Vol. 13.2 fl (6.2-12.0); NRBC Flagged by Analyzer 0 % (0-5); POSITIVE COUNT YES; POSITIVE DIFFERENTIAL YES; RBC Distribution Width CV 15.1 % (11.6-14.6); RBC Distribution Width SD 50.9 fl (35.1-43.9); Red Blood Count 3.17 M/mm3 (4.2-5.4); White Blood Count 6.8 K/mm3 (4.4-11.0)
[2025-02-13 04:55] LABS: Platelet Count 49 K/mm3 (150-450)
[2025-02-13 05:18] LABS: Anion Gap 16 (5-15); BUN 20 mg/dL (4-19); BUN/Creat Ratio 19.1 RATIO (10-20); Calcium,Total 9.3 mg/dL (7.6-11.0); Carbon Dioxide 23.8 mmol/L (21.0-32.0); Chloride 100 mmol/L (98-108); Estimated Creatinine Clearance 50.30 ml/min (50-250); Glucose 223 mg/dL (70-99); Magnesium 2.4 mg/dL (1.5-2.2); Potassium 4.0 mmol/L (3.3-5.1)
--- NOTE | 2025-02-13 05:55 | ECHOD_ITS ---
Reason For Study Reason For Study: CHF Procedure This was a 2D Doppler, Color Flow transthoracic echocardiogram. Exam performed in department. Left Ventricle Normal LV size. Mild concentric left ventricular hypertrophy. The left ventricular ejection fraction is 55 %. At least stage I diastolic dysfunction. Right Ventricle Normal right ventricle. Atria There is severe biatrial dilatation. Mitral Valve Mild-Moderate (1-2+) mitral valve insufficiency. Tricuspid Valve Severe (4+) eccentric tricuspid valve insufficiency. Right ventricular systolic pressure estimated to be 68 mmHg. Aortic Valve Mild to moderate aortic valve regurgitation. Pulmonic Valve The pulmonic valve is not well visualized. Great Vessels Normal sized aortic root. Pericardium/Pleural Small localized pericardial effusion around the base of the left ventricle and right atrium. MMode/2D Measurements & Calculations LVIDd: 4.8 cm IVSd: 1.0 cm LVOT diam: 1.9 cm LVIDs: 3.4 cm LVPWd: 1.1 cm LVOT area: 2.8 cm2 RVDd: 3.4 cm FS: 28.9 % Ao root diam: 3.1 cm LAV(MOD-bp): 101.9 ml LVAd ap4: 23.9 cm2 LAV(MOD-bp) Indexed: 53.7 ml/m2 LVLd ap4: 7.8 cm LAV(MOD-sp2): 96.3 ml EDV(MOD-sp4): 61.9 ml LAV(MOD-sp4): 98.9 ml EDV(sp4-el): 62.3 ml LVAs ap4: 12.7 cm2 LVLs ap4: 6.2 cm ESV(MOD-sp4): 22.0 ml ESV(sp4-el): 22.1 ml EF(MOD-sp4): 64.4 % EF(sp4-el): 64.5 % LVAd ap2: 24.5 cm2 SV(MOD-sp4): 39.9 ml SV(MOD-sp2): 45.4 ml LVLd ap2: 7.0 cm SI(MOD-sp4): 21.0 ml/m2 SI(MOD-sp2): 23.9 ml/m2 EDV(MOD-sp2): 73.8 ml EDV(sp2-el): 72.8 ml LVAs ap2: 14.2 cm2 LVLs ap2: 6.3 cm ESV(MOD-sp2): 28.4 ml ESV(sp2-el): 27.4 ml EF(MOD-sp2): 61.6 % SV(sp4-el): 40.1 ml Ao sinus diam: 3.[address] Junction: 2.3 cm LA dimension(2D): 6.4 cm LA A4 area: 30.2 cm2 RA A4 area: 27.3 cm2 TAPSE: 1.3 cm Time Measurements MV dec time: 0.20 sec Doppler Measurements & Calculations MV E max concetta: 177.2 cm/sec MV V2 max: 209.3 cm/sec Ao V2 max: 225.1 cm/sec MV max P.6 mmHg Ao max P.4 mmHg MV V2 mean: 122.0 cm/sec Ao V2 mean: 165.7 cm/sec MV mean P.2 mmHg Ao mean P.2 mmHg MV V2 VTI: 41.5 cm Ao V2 VTI: 42.2 cm MVA(VTI): 1.3 cm2 AV (velocity ratio): 0.46 KAROLINA(I,D): 1.3 cm2 KAROLINA(V,D): 1.3 cm2 AI max concetta: 409.7 cm/sec LV V1 max: 104.7 cm/sec SV(LVOT): 54.7 ml AI max P.2 mmHg LV V1 max P.4 mmHg LV V1 mean P.6 mmHg AI dec slope: 356.9 cm/sec2 LV V1 mean: 77.6 cm/sec AI P1/2t: 336.3 msec LV V1 VTI: 19.4 cm PA V2 max: 116.3 cm/sec TR max concetta: 365.0 cm/sec TR max P.3 mmHg ECHO/Echo Complete Interpretation Summary Mild concentric left ventricular hypertrophy. The left ventricular ejection fraction is 55 %. At least stage I diastolic dysfunction. There is severe biatrial dilatation. Mild-Moderate (1-2+) mitral valve insufficiency. Severe (4+) eccentric tricuspid valve insufficiency. Right ventricular systolic pressure estimated to be 68 mmHg. Mild to moderate aortic valve regurgitation. Small localized pericardial effusion around the base of the left ventricle and right atrium. Ordering Physician: Manjinder Rosado Performed By: Grecia Jamison RDCS
[2025-02-13] MEDS: Albuterol 2.5 MG/3 ML VIAL.NEB. 0.63 MG INHALATION ×2 (07:00→22:35)
[2025-02-13] MEDS: APIXABAN 2.5 MG TABLET (WCH) PO (08:19)
[2025-02-13] MEDS: Potassium Chloride Oral Tablet 20 MEQ PO (08:20)
[2025-02-13] MEDS: Azithromycin 500 MG in 0.9% Normal Saline (250mL Bag) 250 ML 250 MG IV (08:21)
--- NOTE | 2025-02-13 08:45 | PN.HOSP_ITS ---
Reason for Visit Chief Complaint: Shortness of breath Subjective Subjective Patient states she is feeling a lot better than she did on presentation. She states at least 60 to 70%. No history of tobacco abuse but had significant tobacco exposure as a child from her parents as they were both smokers. Objective Data Objective Data Vital Signs: Vital Signs Temp Pulse Resp BP Pulse Ox O2 Del Method O2 Flow Rate 98.0 F 107 H 18 113/58 L 94 Nasal Cannula 2 02/13/25 06:00 02/13/25 08:20 02/13/25 07:01 02/13/25 07:00 02/13/25 07:01 02/13/25 07:01 02/13/25 07:01 FiO2 94 02/13/25 00:20 Oxygen Flow Rate (L/min) 2 Oxygen Delivery Method Nasal Cannula Weight: 97.1 kg Body Mass Index (BMI) 43.2 Intake & Output: Intake and Output for Last 24 Hours 02/11/25 02/12/25 02/13/25 23:59 23:59 23:59 Intake Total 350 / 350 274.42 / 274.42 Output Total 300 / 300 Balance 350 / 350 -25.58 / -25.58 Lab / Micro Data 02/13/25 04:16 02/13/25 04:16 Labs: Laboratory Results - last 24 hr 02/12/25 20:03: WBC 9.0, RBC 3.71 L, Hgb 10.5 L, Hct 33.5 L, MCV 90.3, MCH 28.3, MCHC 31.3 L, RDW Std Deviation 49.8 H, RDW Coeff of Giles 15.0 H, Plt Count 57 L, MPV 14.3 H, Immature Gran % (Auto) 0.900, Neut % (Auto) 51.6, Lymph % (Auto) 7.9 L, Obion % (Auto) 39.2 H, Eos % (Auto) 0.2, Baso % (Auto) 0.2, Absolute Neuts (auto) 4.6, Absolute Lymphs (auto) 0.71 L, Nucleated RBC % 0, Differential Comment SCANNED, PT 19.8 H, INR 1.6, APTT 41.4 H, Sodium 143, Potassium 3.9, Chloride 98, Carbon Dioxide 29.1, Anion Gap 16 H, BUN 18, Creatinine 1.07, Est GFR (MDRD) Non-Af 55 L, BUN/Creatinine Ratio 16.8, Glucose 108 H, Lactic Acid 1.5, Calcium 9.9, Total Bilirubin 2.43 H, AST 21, ALT 10, Alkaline Phosphatase 113 H, Troponin T High Sens 22 H, Total Protein 7.8, Albumin 5.0 H, Globulin 2.8, Albumin/Globulin Ratio 1.8 02/12/25 22:07: Troponin T Hi Sens 2 Hr 18 H 02/13/25 00:30: Troponin T Hi Sens 4Hr 16 H 02/13/25 04:16: WBC 6.8, RBC 3.17 L, Hgb 9.1 L, Hct 28.9 L, MCV 91.2, MCH 28.7, MCHC 31.5 L, RDW Std Deviation 50.9 H, RDW Coeff of Giles 15.1 H, Plt Count 49 L*, MPV 13.2 H, Immature Gran % (Auto) 1.200 H, Neut % (Auto) 80.7 H, Lymph % (Auto) 7.5 L, Obion % (Auto) 10.4 H, Eos % (Auto) 0.1, Baso % (Auto) 0.1, Absolute Neuts (auto) 5.5, Absolute Lymphs (auto) 0.51 L, Nucleated RBC % 0, Sodium 140, Potassium 4.0, Chloride 100, Carbon Dioxide 23.8, Anion Gap 16 H, BUN 20 H, Creatinine 1.04, Estim Creat Clear Calc 50.30, Est GFR (MDRD) Non-Af 57 L, BUN/Creatinine Ratio 19.1, Glucose 223 H, Calcium 9.3, Magnesium 2.4 H Micro: Microbiology 02/12/25 20:05 Mucosa - Nose SARS-CoV-2, Influenza & RSV (PCR) - Final ABG Data ABG results: ABG 02/12/25 20:32 Specimen Type CHA Sample Site Not entered O2 % 2.0 VBG pH 7.40 VBG pO2 39 VBG HCO3 30 H VBG Total CO2 32 VBG O2 Sat (Calc) 73 H VBG Base Excess 6 H POC Mix VBG pCO2 Pt Tmp 49.0 O2 Delivery Device Cannula Radiography Diagnostic Testing: Radiology Impression Chest X-Ray 02/12/25 20:01 IMPRESSION: Right lower lobe opacity may reflect pneumonia, aspiration, and/or atelectasis. Moderate pulmonary edema. Large cardiomegaly. Reading Location: [facility] Physical Exam Const alert, oriented x3, no apparent distress and well nourished; Negative for average body habitus or healthy appearing Constitutional Narrative: Morbidly obese, white female, older, lying in bed, currently appears comfortable, does not look toxic, stable on 2 L nasal cannula at the present time with no signs of respiratory distress currently HEENT head/scalp atraumatic and moist oral mucous membranes HEENT Narrative: Mallampati is 3, no thrush, dentition is poor Head and Scalp: normocephalic Resp no retractions and no use of accessory muscles Resp Narrative: Mild tachypnea, coarse inspiratory and expiratory breath sounds bilaterally, scattered end expiratory wheezes and inspiratory wheezes Auscultation: crackles and wheezes; Negative for rhonchi Cardio S1 normal heart sound, S2 normal heart sound, no murmurs, no rub, no gallops and no clicks Cardio Narrative: Mild tachycardia with irregular irregular rhythm GI normal to inspection, nondistended, normoactive bowel sounds, soft to palpation and non-tender GI Narrative: Protuberant abdomen Extremity no clubbing, cyanosis or edema Extremity Narrative: 2+ pedal pulses, 2+ radial pulses Neuro moves all extremities and no focal motor deficits Speech: speech normal Psych affect normal Psych Narrative: Eye contact is good and patient interacts appropriately, very pleasant Assessment & Plan Assessment/Plan (1) Acute hypoxic respiratory failure: (2) Atrial fibrillation with RVR: (3) Viral pneumonia: (4) Parainfluenza infection: (5) Acute on chronic heart failure with reduced ejection fraction (HFrEF, <= 40%): (6) Hyperbilirubinemia: (7) Elevated troponin: PLAN: Plan Acute hypoxic respiratory failure secondary to acute viral pneumonia secondary to parainfluenza and acute on chronic heart failure with reduced ejection fraction - Patient was tachycardic, tachypneic, and hypertensive on presentation requiring 3 L nasal cannula - At baseline patient is not oxygen dependent typically - Initially required 3 L nasal cannula but now has been down titrated to 2 L - Discontinue antibiotics as this appears to be a viral infection Sputum culture was ordered however not been able to produce- -continue IV steroids - Continue pulmonary toilet - Continue incentive spirometry - Add Acapella 10 times every 2 hours while awake - Hold home p.o. Lasix and start IV Lasix 40 IV twice daily - echocardiogram is pending--> last echocardiogram from 06/03/2024 showed EF of 40% with mild concentric LVH and a pulm artery systolic pressure of 52 mmHg - Will restrict sodium and fluid intake Chronic atrial fibrillation with RVR - Patient has persistent A-fib but on RVR on presentation due to respiratory distress - Discontinue Cardizem drip - Restart home Cardizem and metoprolol - Xarelto on hold due to marked thrombocytopenia which has trended down Acute on chronic thrombocytopenia - Patient has chronic thrombocytopenia - Coags are abnormal however the patient is on Eliquis at baseline - Baseline platelet count appears to run between 80 and 100,000 - 49,000 today - Acute drop may be related to acute infection as noted above - Will need to hold Eliquis while below 75,000 - Repeat lab in a.m. Hyperbilirubinemia - This is new - Etiology is unclear - Imaging shows hepatosplenomegaly - Repeat lab in a.m. 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 twice daily - Restart home Cardizem 60 Q8 - P.o. Lasix on hold and currently on IV Hyperlipidemia -Continue home atorvastatin History of PE - Eliquis on hold due to severe thrombocytopenia - PE is remote and will monitor closely CHRISTIANNE -Continue CPAP Morbid obesity -Recommend weight loss -BMI is 43.2 -Complicates treatment, prognosis, outcomes DVT prophylaxis - Apixaban on hold due to severe thrombocytopenia - Start SCDs CODE STATUS -DNR CCA with no intubation Charges/Coding Visit Charges Inpatient E&M: 20801 Subs Hosp L3
--- NOTE | 2025-02-13 08:49 | CT_ITS ---
PROCEDURE: CT CHEST, ABD, PELVIS WO CONT 02/13/2025 REASON FOR EXAM: HYPOXIA AND ? LIVER DISEASE TECHNIQUE: Chest, abdomen and pelvis CT without intravenous contrast. Coronal and Sagittal reconstruction series were provided. One or more dose reduction techniques were used (e.g., Automated exposure control, adjustment of the mA and/or kV according to patient size, use of iterative reconstruction technique. RADIATION DOSE SUMMARY: CTDlvol: 25.55 mGy DLP: 1306.67 mGycm COMPARISON: None. FINDINGS: CT CHEST: Hardware: None. Lymph nodes: No lymphadenopathy. Heart and Vasculature: Large cardiomegaly. Coronary Artery Calcifications: Present Lungs and Airways: Diffuse ground-glass densities with septal CHF. Airspace opacity consistent with atelectasis or pneumonia in the right middle lobe. Pleura: No pleural effusion. Bones: Old compression fracture T12. No acute bony abnormalities. CT ABDOMEN / PELVIS: Noncontrast technique limits evaluation of the abdominal and pelvic viscera. Liver: Mild hepatomegaly. Gallbladder: Distended. Cholelithiasis. No biliary dilation. Spleen: Splenomegaly, 16 cm in length. Pancreas: Unremarkable. Adrenals: Unremarkable. Kidneys: No hydronephrosis. No nephrolithiasis. Bladder: Unremarkable Reproductive Organs: Unremarkable. Bowel: Colonic diverticulosis with no evidence of acute diverticulitis. No bowel obstruction. Appendix: Unremarkable. Lymph nodes: No lymphadenopathy. Vasculature: No aneurysm. Atherosclerotic calcifications. Peritoneum / Retroperitoneum: No free air or free fluid. Bones: Old compression fracture of T12. Age-indeterminate compression fractures at the upper endplate of L2 and lower endplate of L3. CT/CT Chest, Abd, Pelvis WO Cont IMPRESSION: Diffuse ground-glass densities with septal CHF. Airspace opacity consistent with atelectasis or pneumonia in the right middle l obe. The gallbladder is distended and contains gallstones. Ultrasound may be perfor med to rule out acute cholecystitis. Hepatosplenomegaly. Age-indeterminate compression fractures at the upper endplate of L2 and lower e ndplate of L3. Please correlate with focal tenderness and posterior MRI of the lumbar spine. Reading Location: [facility]
[2025-02-13 09:43] LABS: Pro- Brain NATRIURETIC PEPTIDE 5960 pg/mL (<=900)
--- NOTE | 2025-02-13 10:00 | CASEMGMT ---
RN CM Face to Face with patient for initial transition planning/care coordination assessment. RN CM introduced self and role at [facility]. Patient lying in bed, alert and oriented. Patient willing to participate in assessment and is able to answer all questions appropriately. Care providers, pharmacy, and demographics verified. Strata: 2 PCP: Fred Specialists: Purification Director CCChayito; [place], director outcomes [place] Preferred [facility]: [facility] [place] Insurance: [facility] Dual Prescription Benefit: yes Living Will/HPOA: none LNOK: daughter Living Arrangements: Patient lives with daughter and family in a single story home with 4 step and railing to enter the home. Patient is independent at home. Transportation: self, daughter DME/HHC: Patient has shower chair, raised toilet, grab bars, cane, walker, cpap, nebulizer, pulse ox, and oxygen at home through [facility] with portability. Patient has [facility] in the past. Patient has been to SNF in the past. Patient wishes to discharge home, denies need for home health at this time. Patient states she has no further needs or concerns at this time. CM to follow for discharge planning needs that may arise. Disposition Plan: Patient to discharge home with family support and follow-up plans in place. Will follow for increase in home oxygen at discharge. Kami KRISHNA, RN, CM
--- NOTE | 2025-02-13 12:32 | CASEMGMT ---
Social Work SW assisted pt in completing HCPOA and living will. Pt naming her daughter Rhiannon and HCPOA. Copies placed on pt chart and originals given to pt. ALB[place]IA Kong
[2025-02-14] VITALS (8 sets, daily range): BP systolic 108–140; BP diastolic 56–68; PULSE 78–104; RESP 18–20; TEMP 36.4–36.7; O2SAT 79–97
[2025-02-14 05:45] LABS: Hematocrit 28.6 % (37-47); Hemoglobin 8.8 g/dL (12.0-15.0); Mean Corp Hgb Conc 30.8 g/dL (32-36); Mean Corpuscular Volume 92.6 fL (81-99); Mean Platelet Vol. 13.6 fl (6.2-12.0); POSITIVE COUNT YES; Platelet Count 67 K/mm3 (150-450); RBC Distribution Width CV 14.6 % (11.6-14.6); RBC Distribution Width SD 49.4 fl (35.1-43.9); Red Blood Count 3.09 M/mm3 (4.2-5.4); White Blood Count 12.8 K/mm3 (4.4-11.0)
[2025-02-14 06:15] LABS: AST(SGOT) 13 U/L (<=31); Alanine Aminotransfer ALT/SGPT 6 U/L (<=34); Albumin, Serum 4.2 g/dL (3.4-4.8); Alkaline Phosphatase 82 U/L (35-104); Anion Gap 12 (5-15); BUN 32 mg/dL (4-19); BUN/Creat Ratio 33.5 RATIO (10-20); Calcium,Total 9.6 mg/dL (7.6-11.0); Carbon Dioxide 28.3 mmol/L (21.0-32.0); Chloride 103 mmol/L (98-108); Estimated Creatinine Clearance 54.49 ml/min (50-250); Globulin 2.2 g/dL (2.2-4.2); Glucose 170 mg/dL (70-99); Potassium 4.4 mmol/L (3.3-5.1)
[2025-02-14] MEDS: Potassium Chloride Oral Tablet 20 MEQ PO (09:17)
[2025-02-14] MEDS: FLU VACCINE HIGH DOSE 25-26(65YR UP) 180 MCG/0.5 ML SYRINGE IM (09:18)
[2025-02-14] MEDS: Albuterol 2.5 MG/3 ML VIAL.NEB. 0.63 MG INHALATION ×2 (10:40→15:27)
--- NOTE | 2025-02-14 15:39 | PCM.DC.SUM ---
Providers Date of Admission: 02/12/25 Date of Discharge: 02/14/25 Primary Care Physician: Dr. Kory Ibarra DO Reason For Visit: HYPOXIA, CONGESTIVE HEART FAILIRE, ATRIAL Diagnosis Discharge Diagnosis (1) Acute hypoxic respiratory failure: Status: Acute Code(s): J96.01 - Acute respiratory failure with hypoxia (2) Atrial fibrillation with RVR: Status: Acute Code(s): I48.91 - Unspecified atrial fibrillation (3) Viral pneumonia: Status: Acute Code(s): J12.9 - Viral pneumonia, unspecified (4) Parainfluenza infection: Status: Acute Code(s): B34.8 - Other viral infections of unspecified site (5) Acute on chronic heart failure with reduced ejection fraction (HFrEF, <= 40%): Status: Chronic Code(s): I50.23 - Acute on chronic systolic (congestive) heart failure (6) Hyperbilirubinemia: Status: Acute Code(s): E80.6 - Other disorders of bilirubin metabolism (7) Elevated troponin: Status: Acute Code(s): R79.89 - Other specified abnormal findings of blood chemistry Medications at Discharge Home Medications furosemide 40 mg tablet 40 mg PO BID diuretic 10/27/13 atorvastatin 10 mg tablet 10 mg PO QHS cholesterol 07/14/16 apixaban 5 mg tablet (Eliquis) 5 mg PO BID blood thinner 01/18/22 albuterol sulfate 0.63 mg/3 mL solution for nebulization 0.63 mg (3 mL) inhalation Q4H PRN shortness of breath or wheezing #75 mL 01/22/22 guaifenesin 1,200 mg tablet, extended release 12 hr (Mucus Relief ER) 1,200 mg PO BID cough #10 tabs 01/22/22 folic acid 1 mg tablet 1 mg PO DAILY see PCP 05/25/24 sertraline 50 mg tablet 50 mg PO QHS mental health 05/25/24 docusate sodium 100 mg capsule (Col-Rite) 100 mg PO BID PRN constipation 06/03/24 albuterol sulfate 90 mcg/actuation aerosol inhaler 1 inh inhalation Q6H #6.7 grams 06/05/24 diltiazem HCl 60 mg tablet 60 mg PO Q8 #120 tabs 06/05/24 metoprolol tartrate 25 mg tablet 75 mg (3 x 25 mg) PO BID #180 tabs 06/05/24 tiotropium bromide 18 mcg capsule with inhalation device (Spiriva with HandiHaler) 1 cap inhalation DAILY #30 inhalations 06/05/24 calcitonin (salmon) 200 unit/actuation nasal spray 1 spray intranasal DAILY 08/24/24 ferrous sulfate 324 mg (65 mg iron) tablet,delayed release 324 mg PO BID 08/24/24 ipratropium 0.5 mg-albuterol 3 mg (2.5 mg base)/3 mL nebulization soln 3 ml inhalation Q8H 08/24/24 lisinopril 20 mg tablet 20 mg PO DAILY 08/24/24 mometasone-formoterol HFA 100 mcg-5 mcg/actuation aerosol inhaler (Dulera) 1 puff inhalation 08/24/24 ondansetron HCl 4 mg tablet 4 mg PO Q12H PRN PRN nausea/vomiting 08/24/24 potassium chloride 10 mEq tablet,extended release(part/cryst) 10 meq PO BID 08/24/24 potassium chloride 20 mEq tablet,extended release(part/cryst) 20 meq PO DAILY 08/24/24 risedronate 35 mg tablet mg PO 08/24/24 tiotropium bromide 2.5 mcg/actuation mist for inhalation (Spiriva Respimat) 2 puff inhalation DAILY 08/24/24 cefdinir 300 mg capsule 300 mg PO BID 3 days #6 caps 08/28/24 prednisone 10 mg tablet 10 mg PO DAILY #20 tabs 02/14/25 Hospital Course Operations None Procedures EKG and - (CXR/CT Chest/Abdomen/Pelvis) Summary of Care Provided Minutes Spent on Discharge: 38 Hospital Course: Patient is a 74-year-old white female who presents emergency department [facility] on 02/12/2025 with a chief complaint of shortness of breath. Patient reported on admission she is not on regular oxygen however we were able to contact her DME supplier and she is supposed to be on 2 L [id number]. She lives with her daughter and 2 kids and they have recently been sick. She does have baseline lung disease with diagnosis of COPD and also HFrEF with her most recent echocardiogram showing an EF of 40%. On admission she stated she had a cough productive of sputum however on reevaluation she states has been tight and she was not able to get any sputum up. She stated she started using her oxygen because of her shortness of breath. Vital signs on presentation showed a temperature of 99.2, heart rate 127, respiratory 26, blood pressure was 187/79 and pulse ox was 97% on 3 L nasal cannula. She does have a history of atrial fibrillation and it is unclear whether she has been compliant with her Cardizem and metoprolol at home. Her CBC showed a chronic anemia which is stable, no white count elevation but acute on chronic thrombocytopenia. Her chemistry panel was overtly unremarkable. Initial troponin was 22. Bilirubin was 2.53. COVID/flu/RSV was unremarkable. A VBG was obtained with a pH of 7.40. Chest x-ray showed cardiomegaly and a possible right lower lung opacity which upon review of previous chest x-ray this was present previously and some moderate pulmonary edema. She was admitted initially to the progressive care unit and maintained on oxygen. She was started on IV steroids, nebulizers, and azithromycin and ceftriaxone. I added a respiratory viral panel the next morning as well as a BNP. Her BNP was markedly elevated compared to her baseline home and her respiratory viral panel was positive for parainfluenza virus. Given the diagnosis of viral pneumonia we discontinued IV antibiotics. We added Pep therapy and incentive spirometry. She was maintained on diuretics and we were able to wean her to her baseline oxygen of 2 L. Echocardiogram was performed on 02/13/2025 and showed an improvement in her ejection fraction up to 55% with stage I diastolic dysfunction, severe biatrial dilation, mild to moderate mitral valve insufficiency with severe tricuspid valve insufficiency and right ventricular systolic pressure of 68 mmHg. I suspect her right ventricular systolic pressure is up as she is not continuously wearing her oxygen as recommended. Ambulatory pulse ox was done on 02/15/2024 and the patient was stable on 2 L. She was feeling 70 to 80% better per her report and was able to go home on 02/14/2025. Her adventitious lung sounds were markedly improved at the time of discharge and she had no further wheezing. We discharged her with a prednisone taper and encouraged her to utilize her Lasix ongoing. We did recommend she weigh herself daily and take an extra dose of Lasix if she gains more than 2 pounds in a 24-hour period and follow-up with cardiology. We also advised her to limit her fluid intake to 2 L or less daily and sodium intake to less than 3 g daily. No other medication changes were made at the time of discharge. Again, I encouraged her to follow-up with cardiology as well as her primary care physician. She did indicate during her hospital stay that she was diagnosed with CML and is following with oncology. As noted her platelet count did drop from her baseline and we did hold her Eliquis temporarily during her hospitalization. I suspect her platelet count dropped related to her acute infection as it did trend up at the time of discharge and was back up to 67,000 at that time. We did go ahead and have her restart her Eliquis tomorrow. Discharge diagnoses: Acute hypoxic respiratory failure ruled out as patient was found to be on chronic oxygen at 2 L rather than no oxygen at baseline Acute hypoxia Acute viral pneumonia secondary to parainfluenza virus Acute on chronic heart failure with reduced ejection fraction Chronic atrial fibrillation with RVR Acute on chronic thrombocytopenia Hyperbilirubinemia Elevated troponin secondary to demand ischemia L2/L3 compression fracture indeterminate age Chronic normocytic anemia CML COPD Asthma Hypertension Hyperlipidemia History of PE CHRISTIANNE Morbid obesity Weight / BMI Weight Weight: 97.1 kg Body Mass Index (BMI) 43.2 ABG / Lab / Microbiology Data 02/14/25 05:12 02/14/25 05:12 Laboratory: Laboratory Results - last 24 hr 02/14/25 05:12: WBC 12.8 H, RBC 3.09 L, Hgb 8.8 L, Hct 28.6 L, MCV 92.6, MCH 28.5, MCHC 30.8 L, RDW Std Deviation 49.4 H, RDW Coeff of Giles 14.6, Plt Count 67 L, MPV 13.6 H, Sodium 143, Potassium 4.4, Chloride 103, Carbon Dioxide 28.3, Anion Gap 12, BUN 32 H, Creatinine 0.96, Estim Creat Clear Calc 54.49, Est GFR (MDRD) Non-Af 63, BUN/Creatinine Ratio 33.5 H, Glucose 170 H, Calcium 9.6, Total Bilirubin 0.82, AST 13, ALT 6, Alkaline Phosphatase 82, Total Protein 6.4, Albumin 4.2, Globulin 2.2, Albumin/Globulin Ratio 1.9 Microbiology: Microbiology 02/13/25 09:18 Mucosa - Nasopharyngeal Respiratory Panel (PCR) - Final Parainfluenza 1 02/12/25 20:05 Mucosa - Nose SARS-CoV-2, Influenza & RSV (PCR) - Final D/C Instructions Discharge Activity: Return to Normal Activity DC O2, CPAP, BIPAP Needs Home O2 Discharge instructions: Yes Type of respiratory needs?: Oxygen Oxygen frequency: Continuous Continuous oxygen liters per minute: 2 DC home with Oxygen: Yes Home O2 MD Review: I have reviewed the oxygen testing, and the patient qualifies for home oxygen equipment and portability. The patient is mobile in the home and the community. Meaningful Use Info Meaningful Use Meaningful Use Diagnoses (Choose all that apply): None applicable Discharge Plan Admission Admit Date/Time: 02/12/25 23:01 Primary Reason for Your Visit: Shortness of breath Attending Provider: Jemima Poe Primary Care Provider: Kory Ibarra Consulting Providers: Manjinder Rosado Instructions Additional Instructions / Restrictions: 1. You were diagnosed with parainfluenza virus which in combined with some heart failure caused your shortness of breath 2. Please wear 2 L of oxygen all the time until you follow-up with your lung doctor 3. Complete your prednisone taper and continue to use regular nebulized albuterol 3-4 times a day over the next 5 to 7 days depending on your breathing 4. Please limit your fluid intake to 2 L or less daily and your salt intake to 3 g or less daily 5. Please weigh yourself in the morning without clothes on on a daily basis. Keep track of your weight and if you gain more than 2 pounds in 24 hours please take an extra dose of your Lasix and call your heart doctor Discharge Orders/Prescriptions Prescriptions: Continued folic acid 1 mg tablet 1 mg PO DAILY furosemide 40 MG tablet 40 mg PO BID Patient Comments: Water pill sertraline 50 mg tablet 50 mg PO QHS Patient Comments: Anti-depressant/anxiety atorvastatin 10 MG tablet 10 mg PO QHS Patient Comments: CHOLESTEROL Eliquis 5 mg tablet 5 mg PO BID guaifenesin [Mucus Relief ER] 1,200 mg Tablet Extended Release 12hr 1,200 mg PO BID Qty: 10 0RF albuterol sulfate 0.63 mg/3 mL solution for nebulization 0.63 mg inhalation Q4H PRN (Reason: shortness of breath or wheezing) Qty: 75 0RF docusate sodium [Col-Rite] 100 mg capsule 100 mg PO BID PRN (Reason: constipation) diltiazem HCl 60 mg Tablet 60 mg PO Q8 Qty: 120 0RF metoprolol tartrate 25 mg Tablet 75 mg PO BID Qty: 180 0RF tiotropium bromide [Spiriva with HandiHaler] 18 mcg capsule, w/inhalation device 1 cap inhalation DAILY Qty: 30 0RF Rx Instructions: puncture 1 cap using device; one dose = 2 inhalations albuterol sulfate 90 mcg/actuation HFA aerosol inhaler 1 inh inhalation Q6H Qty: 6.7 0RF ipratropium-albuterol 0.5 mg-3 mg(2.5 mg base)/3 mL solution for nebulization 3 ml inhalation Q8H lisinopril 20 mg tablet 20 mg PO DAILY ondansetron HCl 4 mg tablet 4 mg PO Q12H PRN PRN (Reason: nausea/vomiting) potassium chloride 20 mEq tablet,ER particles/crystals 20 meq PO DAILY calcitonin (salmon) 200 unit/actuation spray,non-aerosol 1 spray intranasal DAILY risedronate 35 mg tablet PO potassium chloride 10 mEq tablet,ER particles/crystals 10 meq PO BID ferrous sulfate 324 mg (65 mg iron) tablet,delayed release (DR/EC) 324 mg PO BID Dulera 100-5 mcg/actuation HFA aerosol inhaler 1 puff inhalation Spiriva Respimat 2.5 mcg/actuation mist 2 puff INHALATION DAILY cefdinir 300 mg capsule 300 mg PO BID 3 Days Qty: 6 0RF prednisone 10 mg tablet 10 mg PO DAILY Qty: 20 0RF Rx Instructions: 4 tablets x 3 days, 3 tablets x 3 days, 2 tablets x 3 days, 1 tablet x 3 days and stop Referrals / Follow Up: Kroy Ibarra DO [Primary Care Provider, Family Practice] - In 1 Week Referral Note: Call tomorrow to schedule an appointment Disposition Disposition (needs filled in before D/C Order can be placed): Home, Self Care Charges/Coding Visit Charges Inpatient E&M: 97879 Disch Hosp >30min
--- NOTE | 2025-02-14 16:11 | PHA.DC.MR.R ---
Pharmacy [facility] Reconciliation [facility] Service has performed discharge medication reconciliation for this patient. The patient's discharge medication list was reviewed for discrepancies and discrepancies were resolved. Medications at Discharge Home Medications furosemide 40 mg tablet 40 mg PO BID diuretic 10/27/13 atorvastatin 10 mg tablet 10 mg PO QHS cholesterol 07/14/16 apixaban 5 mg tablet (Eliquis) 5 mg PO BID blood thinner 01/18/22 albuterol sulfate 0.63 mg/3 mL solution for nebulization 0.63 mg (3 mL) inhalation Q4H PRN shortness of breath or wheezing #75 mL 01/22/22 guaifenesin 1,200 mg tablet, extended release 12 hr (Mucus Relief ER) 1,200 mg PO BID cough #10 tabs 01/22/22 folic acid 1 mg tablet 1 mg PO DAILY see PCP 05/25/24 sertraline 50 mg tablet 50 mg PO QHS mental health 05/25/24 docusate sodium 100 mg capsule (Col-Rite) 100 mg PO BID PRN constipation 06/03/24 albuterol sulfate 90 mcg/actuation aerosol inhaler 1 inh inhalation Q6H #6.7 grams 06/05/24 diltiazem HCl 60 mg tablet 60 mg PO Q8 #120 tabs 06/05/24 metoprolol tartrate 25 mg tablet 75 mg (3 x 25 mg) PO BID #180 tabs 06/05/24 tiotropium bromide 18 mcg capsule with inhalation device (Spiriva with HandiHaler) 1 cap inhalation DAILY #30 inhalations 06/05/24 calcitonin (salmon) 200 unit/actuation nasal spray 1 spray intranasal DAILY 08/24/24 ferrous sulfate 324 mg (65 mg iron) tablet,delayed release 324 mg PO BID 08/24/24 ipratropium 0.5 mg-albuterol 3 mg (2.5 mg base)/3 mL nebulization soln 3 ml inhalation Q8H 08/24/24 lisinopril 20 mg tablet 20 mg PO DAILY 08/24/24 mometasone-formoterol HFA 100 mcg-5 mcg/actuation aerosol inhaler (Dulera) 1 puff inhalation 08/24/24 ondansetron HCl 4 mg tablet 4 mg PO Q12H PRN PRN nausea/vomiting 08/24/24 potassium chloride 10 mEq tablet,extended release(part/cryst) 10 meq PO BID 08/24/24 potassium chloride 20 mEq tablet,extended release(part/cryst) 20 meq PO DAILY 08/24/24 risedronate 35 mg tablet mg PO 08/24/24 tiotropium bromide 2.5 mcg/actuation mist for inhalation (Spiriva Respimat) 2 puff inhalation DAILY 08/24/24 cefdinir 300 mg capsule 300 mg PO BID 3 days #6 caps 08/28/24 prednisone 10 mg tablet 10 mg PO DAILY #20 tabs 02/14/25
--- NOTE | 2025-02-14 16:18 | CASEMGMT ---
Patient has order for discharge. Patient maintaining on home oxygen. RN CM in to discuss needs at discharge. Patient denies needs or help at discharge. Patient had no further questions or concerns.
--- NOTE | 2025-02-14 21:30 | NURSING ---
2100- pt d/c'd with daughter and belongings
== END 2025-02-14 21:00 | disposition home or self-care (01) | DRG 193 ==
LOC: ED 21:11 → PCU 23:10
PROVIDERS: Admitting Provider Family Medicine; Emergency Provider Student in an Organized Health Care Education/Training Program; PCP Family Medicine; Visit Provider Internal Medicine
DX: J12.2 Parainfluenza virus pneumonia (principal); I50.23 Acute on chronic systolic (congestive) heart failure; C92.10 Chronic myeloid leukemia, BCR/ABL-positive, not having achieved remission; I24.89 Other forms of acute ischemic heart disease; J96.11 Chronic respiratory failure with hypoxia; J44.0 Chronic obstructive pulmonary disease with (acute) lower respiratory infection; Z68.41 Body mass index [BMI] 40.0-44.9, adult; M48.56XA Collapsed vertebra, not elsewhere classified, lumbar region, initial encounter for fracture; I48.19 Other persistent atrial fibrillation; J44.1 Chronic obstructive pulmonary disease with (acute) exacerbation; D69.6 Thrombocytopenia, unspecified; Z66 Do not resuscitate; I11.0 Hypertensive heart disease with heart failure; F32.A Depression, unspecified; D64.9 Anemia, unspecified; I34.0 Nonrheumatic mitral (valve) insufficiency; E66.01 Morbid (severe) obesity due to excess calories; F41.9 Anxiety disorder, unspecified; G47.33 Obstructive sleep apnea (adult) (pediatric); E78.5 Hyperlipidemia, unspecified; E80.7 Disorder of bilirubin metabolism, unspecified; R16.2 Hepatomegaly with splenomegaly, not elsewhere classified; Z99.81 Dependence on supplemental oxygen; Z79.01 Long term (current) use of anticoagulants; Z91.199 Patient's noncompliance with other medical treatment and regimen due to unspecified reason; Z79.899 Other long term (current) drug therapy; Z86.711 Personal history of pulmonary embolism; Z79.51 Long term (current) use of inhaled steroids; Z23 Encounter for immunization
CPT/HCPCS: 36415; 71046; 71250; 74176; 80048; 80053; 82803; 83605; 83735; 83880; 84484; 85025; 85027; 85610; 85730; 87040; 87070; 87205; 87631; 87633; 93005; 93306; 94640; 94668; 97162; 97165; 97802; 99284; A4216; J1938